=== PATIENT | female | born 1935 | race Caucasian/White ===

== ENCOUNTER 2018-01-11 13:20 | Emergency (ER) | payer OTHER, SELFPAY ==
[2018-01-11 13:21] VITALS: BP 190/95; PULSE 97; RESP 16; TEMP 36.3; O2SAT 100; BMI 23.9
--- NOTE | 2018-01-11 14:00 | RAD_ITS ---
STUDY: X-RAY - PELVIS AND RIGHT HIP REASON FOR EXAM: Female, 82 years old. Hip pain after fall. Trauma. TECHNIQUE: Radiological exam, hip, unilateral, with pelvis when performed; 2 or 3 views. COMPARISON: None. FINDINGS: There is a nonobstructive non-specific bowel gas pattern without air filled dilated small bowel loop or abnormal air-fluid level identified. Normal appearing visualized soft tissue structures. With AP view of the pelvis, bony ring of the pelvis appears intact without diastases identified. Tiny round benign-appearing calcification is seen lateral to the right proximal femur, likely soft tissue calcification. Normal bilateral iliac wings, sacroiliac joints and visualized sacrum. Normal bilateral superior and inferior pubic rami. Normal pubic symphysis. Normal bilateral ischial tuberosities. Normal visualized femoral head. Normal acetabulum. Fairly severe left greater than right hip joint space narrowing noted with subchondral sclerosis. RAD/Hip 2-3 Views with Pelvis IMPRESSION: Nonacute x-ray examination of the pelvis and hip. 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 Electronically Signed: Brandyn Lovett, at 15:37 EDT Tel , Service support ,
--- NOTE | 2018-01-11 14:00 | RAD_ITS ---
STUDY: X-RAY - UNILATERAL RIBS ( RIGHT ) WITH CHEST REASON FOR EXAM: Female, 82 years old. Painful right mid and lower ribs after fall. TECHNIQUE - RIBS: 2 view(s) of the ribs. TECHNIQUE - CHEST: PA single view. COMPARISON: No prior rib conventional radiographic images available. Correlation with chest 02/21/2015. FINDINGS - RIBS: Normal visualized ribs without a demonstrated acute displaced fracture identified. FINDINGS - CHEST: The lungs appear clear and hyperexpanded. There is no demonstrated pleural abnormality. Surgical clips project over the right lower chest with PA view but are seen near the axilla with additional oblique views of the ribs. Upper limits normal size heart. Normal mediastinum and david. Normal visualized pulmonary arteries. Normal visualized aortic arch and descending thoracic aorta. Normal visualized thoracic spine. Normal visualized ribs, clavicles and shoulders. There is no demonstrated abnormality of the visualized soft tissue structures of the upper abdomen. RAD/Ribs Uni Min 3V w/PA Chest IMPRESSION: RIBS: Nonacute x-ray examination of the ribs. Please note CT chest without IV contrast is more sensitive for acute nondisplaced fracture. If symptoms persist, recommend repeat exam in 14 days to demonstrate any radiographic occult fracture. CHEST: Nonacute x-ray examination of the chest. Electronically Signed: Brandyn Lovett, at 15:30 EDT Tel , Service support ,
--- NOTE | 2018-01-11 14:04 | ED.DCSUM_ITS ---
- ER Visit Summary Date of Service: 01/11/18 Chief Complaint: Fall History of Present Illness: The patient is a 82 F presenting after fall. Patient states that she slipped and skidded down approximately 3 steps. She did not hit her head or lose consciousness. She has no amnesia to the event. She complains of right posterior hip and right sided back pain. Denies other complaints. She is able to ambulate with pain. She is not on anticoagulants. She took Aleve prior to arrival. Physical Examination: Vitals are stable. Patient is afebrile. Alert no acute distress. HEENT exam is unremarkable. Neck is supple. Lungs are clear and equal bilaterally. Heart is regular rate and rhythm. Abdomen is soft nontender nondistended. Back: Right paraspinal muscle tenderness, no midline tenderness Extremities right posterior hip tenderness, active full range of motion. Skin is warm and dry. No focal neurologic deficit. Remainder of exam is unremarkable. Emergency Department Course and Treatment: X-ray of the right ribs shows no acute fracture. X-ray the right hip shows no acute fracture. Urinalysis shows no gross blood. She is given [place] for pain. She is given an incentive spirometer. Advised follow-up with her primary care physician. Advised return ED if worsening complaints. Disposition: Discharge home Impression: Right rib contusion, right hip pain, status post mechanical fall This note was generated with [employer] dictation software. It may contain incorrect words, spelling, and punctuation that were not noted in review of the chart prior to signing ED Disposition - Plan for ED Patient: Chief Complaint: Fall Referrals: Christin Aly MD [STAFF PHYSICIAN] -
[2018-01-11 14:45] LABS: Mucous, Urine 0 SEEN /hpf (<or=2+)
[2018-01-11 14:56] LABS: Color, Urine Yellow (Yellow); Glucose, Dipstick Normal (Normal); Ketone-Dipstick Negative (Negative); Leukocyte Esterase-Dipstick 25 /ul (Negative); Nitrite-Dipstick Negative (Negative); Occult Blood-Urine Negative /ul (Negative); Protein-Dipstick 15 mg/dl (Negative); Specific Gravity, Urine 1.015 (1.002-1.030); Urine Bilirubin Dipstick Negative (Negative); Urine Clarity Clear (Clear); Urine Urobilinogen Normal (Normal)
[2018-01-11 15:09] LABS: Red Blood Cells-Urine 0-5 SEEN /hpf (0-5); White Blood Cells 5-10 SEEN /hpf (0-5)
[2018-01-11 15:10] LABS: Bacteria 1+ /hpf (None Seen); Squamous Epithelial Cells - UA 0-5 SEEN /hpf (5-10)
--- NOTE | 2018-01-11 16:15 | ED.DEP ---
ED Disposition - Plan for ED Patient: Chief Complaint: Fall Instructions: ED Mechanical Fall Prescriptions: Hydrocodone Bitart/Apap 5-325 [[place] 5/325] 1 tablet PO Q6H PRN PRN 2 Days #8 tablet PRN Reason: Pain Referrals: Christin Aly MD [STAFF PHYSICIAN] -
[2018-01-11] MEDS: HYDROcodone Bitartrate/Apap 5/325 Tablet PO (16:16)
[2018-01-11 16:18] VITALS: BP 177/73; PULSE 71; RESP 16; O2SAT 97
--- NOTE | 2018-01-11 16:37 | ED.RN ---
Addendum entered by Juliet Moore 01/11/18 17:12: Original Note: IS teaching complete. Patient did not demonstrate use due to current c/o pain and just receiving pain medication. All questions answered.
== END 2018-01-11 16:33 | disposition home or self-care (01) ==
PROVIDERS: Emergency Provider Emergency Medicine
DX: S20.211A Contusion of right front wall of thorax, initial encounter (principal); W10.9XXA Fall (on) (from) unspecified stairs and steps, initial encounter; Y93.9 Activity, unspecified; Y92.9 Unspecified place or not applicable; M25.551 Pain in right hip; I10 Essential (primary) hypertension; Z79.899 Other long term (current) drug therapy
CPT/HCPCS: 71101; 73502; 81001; 99283

== ENCOUNTER 2018-01-12 15:04 | Observation (INO) | payer OTHER, SELFPAY ==
[2018-01-12 15:04] VITALS: BP 190/94; PULSE 74; RESP 16; TEMP 36.8; O2SAT 97; BMI 23.5
--- NOTE | 2018-01-12 15:36 | CT_ITS ---
STUDY: CT CHEST WITH CONTRAST REASON FOR EXAM: Female, 82 years old. Pain. Fall. RADIATION DOSAGE (If Supplied By Facility): CTDIvol = ( 14.54 ) mGy, DLP = ( 1316.12 ) mGycm TECHNIQUE: Transaxial imaging was performed following intravenous administration of 100 ml of Isovue 300 contrast material. Individualized dose optimization techniques were used for this CT. COMPARISON: None. FINDINGS: There are interstitial fibrotic changes of the lungs. No infiltrates. No effusions. Thickening or minimal effusion along the posterior lung bases. Normal heart and pericardium. Normal mediastinum. Normal hilar regions. Normal enhanced pulmonary arteries. Normal aorta arch and descending thoracic aorta. There are multi-level degenerative changes of the thoracic spine. No fractures are seen. There is no demonstrated abnormality of the visualized upper abdomen. CT/Chest WITH Contrast IMPRESSION: Fibrotic COPD. No definite acute abnormality. Electronically Signed: Gordon Trevino MD at 17:03 EDT , Service support ,
--- NOTE | 2018-01-12 15:36 | CT_ITS ---
STUDY: CT ABDOMEN AND PELVIS WITH CONTRAST REASON FOR EXAM: Female, 82 years old. Fall. Pain. RADIATION DOSAGE (If Supplied By Facility): CTDIvol = ( 14.54 ) mGy, DLP = ( 1316.12 ) mGycm TECHNIQUE: Transaxial images were obtained from the dome of the diaphragm to the symphysis pubis without oral contrast. 100 ml of Isovue 300 contrast was administered. Sagittal and coronal images were reconstructed. Individualized dose optimization techniques were used for this CT. COMPARISON: None. FINDINGS: The visualized lung bases are unremarkable. The visualized portions of the heart are within normal limits. Normal liver. Normal gallbladder. Distended common bile duct measuring 1 cm across. Recommend correlation with liver function tests. Normal spleen. Normal pancreas. Normal bilateral adrenal glands. Right kidney has a 5 cm mid renal cyst and is otherwise normal. Normal left kidney. Evaluation of the GI tract is limited by absence of oral contrast. Cannot exclude stomach wall thickening. No dilated loops of bowel or evidence for obstruction. Cannot exclude segmental thickening of the bean of the small or large bowel. Cannot exclude enteritis or colitis. Moderate diffuse fecal retention. Diverticulosis without definite diverticulitis. Appendix is not definitely seen. There is diffuse atherosclerotic calcification of the abdominal aorta, without a demonstrated aneurysm. Normal inferior vena cava. Normal retroperitoneum. Normal urinary bladder. There is absence of the uterus consistent with a prior hysterectomy. Normal abdominal wall. There are diffuse degenerative changes of the visualized lumbar spine. No fractures are seen. CT/Abdomen/Pelvis W IV Cont ONLY IMPRESSION: There are no definite acute abnormalities. There is a distended common bile duct. Electronically Signed: Gordon Trevino MD at 17:00 EDT , Service support ,
--- NOTE | 2018-01-12 15:38 | ED.DCSUM_ITS ---
- ER Visit Summary Date of Service: 01/12/18 Chief Complaint: Right side pain History of Present Illness: The patient is a 82 F date a mechanical fall yesterday. She landed on her right side going upstairs. She was seen in the emergency department had x-rays of the hip and the chest which were negative for fracture. Urinalysis was negative for hematuria. Patient was prescribed [place] 1 tablet every 4 hours for pain as well as incentive spirometry. Has been called then later in the day and stated that the [place] was not controlling her pain. They increased her [place] to 2 tablets every 4 hours. Patient states her pain is not controlled and she states that she can barely move due to the pain. She denies any abdominal pain. She denies any hematuria today. Physical Examination: Afebrile vital signs are stable Gen: Well-nourished well-developed Head: Normocephalic atraumatic Eyes: Perrl EOMI ENT: TMs clear no rhinorrhea moist mucous membranes Neck: Supple no lymphadenopathy no JVD nontender CVS: Regular rate rhythm no murmurs normal S1-S2 Respiratory: No distress clear to auscultation bilaterally right lower mid axillary rib pain. There is no bruising. Abdomen: Soft patient has tenderness in the right upper quadrant of the abdomen nondistended normal bowel sounds no masses Back: Nontender Extremity: Nontender no edema Skin: Normal color no rash Neuro: alert orientated ?3 CN II-XII intact normal strength sensation reflexes gait cerebellar Psych: Normal affect normal mood Test Results: Basic blood work demonstrated chronic kidney disease. CT of the chest abdomen pelvis with IV contrast demonstrated a posterior 11th rib fracture with associated chest wall hematoma. Emergency Department Course and Treatment: She received morphine and Zofran as well as IV fluids. Our plan is admission for pain control. Impression: 1. Right posterior 11th rib fracture 2. Right chest wall hematoma This note was generated with [employer] dictation software. It may contain incorrect words, spelling, and punctuation that were not noted in review of the chart prior to signing ED Disposition - Plan for ED Patient: Chief Complaint: Back Referrals: [facility] Doctor,Out of [Primary Care Provider] -
[2018-01-12] MEDS: 0.9% Normal Saline 1,000 ML 150 ML IV (15:46)
[2018-01-12] MEDS: Ondansetron 4 MG/2 ML Vial IV ×3 (15:46→19:43)
[2018-01-12] MEDS: Morphine 2 MG/ML Syringe IV (15:46)
[2018-01-12 15:58] LABS: Basophil# 0.01 X10^3/uL; Basophil% 0.2 % (0-1); Eosinophil# 0.02 X10^3/uL; Eosinophils% 0.4 % (0-5); Hematocrit 36.1 % (37-47); Hemoglobin 11.6 g/dl (12.0-15.0); Lymphocyte % 17.6 % (19-41); Mean Corp Hgb Conc 32.1 g/gl (32-36); Mean Corpuscular Hgb 32.8 pg (27.0-32.0); Mean Platelet Vol. 9.7 fl (6.2-12.0); Monocyte# 0.19 X10^3/uL; Monocyte% 3.7 % (0-10); Neutrophil # 3.99 X10^3/uL (2.7-7.7); Neutrophil % 77.9 % (47-70); Platelet Count 191 K/mm3 (150-450); RBC Distribution Width CV 12.4 % (11.6-14.6); RBC Distribution Width SD 45.1 fl (35.1-43.9); Red Blood Count 3.54 M/mm3 (4.2-5.4); White Blood Count 5.1 K/mm3 (4.4-11.0)
[2018-01-12 15:59] LABS: POSITIVE COUNT NO; POSITIVE DIFFERENTIAL NO; POSITIVE MORPHOLOGY NO
[2018-01-12 16:17] LABS: ALB/GLOB Ratio 1.2 RATIO (0.9-2.4); AST(SGOT) 17 U/L (15-37); Alanine Aminotransfer ALT/SGPT 27 U/L (13-56); Albumin, Serum 3.8 g/dL (3.2-5.0); Alkaline Phosphatase 59 U/L (45-117); Anion Gap 4 (5-15); BUN 39 mg/dL (7-18); BUN/Creat Ratio 25.7 RATIO (10-20); Calcium,Total 8.8 mg/dL (8.5-10.1); Chloride 106 mmol/L (98-107); Creatinine, Serum 1.52 mg/dL (0.55-1.02); EST Glomerular Filtration Rate 35 mL/min (>60); Est Glom Filt Rate - Afr Amer 42 mL/min (>60); Estimated Creatinine Clearance 28.23 ml/min; Globulin 3.1 g/dL (2.2-4.2); Glucose 149 mg/dL (74-106); Potassium 4.8 mmol/L (3.5-5.1); Protein, Total 6.9 g/dL (6.4-8.2); Sodium Level 141 mmol/L (136-145)
--- NOTE | 2018-01-12 16:54 | PCM.HP.STD ---
Problem List (1) HTN (hypertension) Status: Chronic Qualifiers: Hypertension type: essential hypertension Qualified Code(s): I10 - Essential (primary) hypertension (2) Hypothyroidism Status: Chronic Qualifiers: Hypothyroidism type: unspecified Qualified Code(s): E03.9 - Hypothyroidism, unspecified (3) Neuropathy Status: Chronic (4) History of breast cancer Status: Chronic Comment: R Breast CA s/p lumpectomy and radiation. (5) Intractable back pain Status: Acute (6) Intractable rib pain Status: Acute History of Present Illness Date of Admission: 01/12/18 Chief Complaint: Fall, intractable R rib and R lateral back pain The patient is a 82 y/o F w/ PMHx: HTN, Hypothyroidism, Neuropathy, History of Breast CA s/p R lumpectomy and radiation (Dr. Ledezma) who presents to the [facility] ED on 01/12/18 with history of fall the day prior while going down the steps, noted to have fall on the 3rd step to the floor onto a wooden surface onto her R side and R lateral back with ongoing, worsening pain. She notes the pain is so severe she is unable to function well and is having notable nausea despite ED pain regimen administration given on day of fall and increase of the regimen. In the ED upon current presentation work-up included T 98.2, HR 74, BP 190/94, RR 16, 97% on RA, CBC w/ WBC 5.1, Hgb 11.6, Plts 191 without marked shift, MCV 102, CMP 39/1.52 (last Cr 02/21/15 1.2), glucose 149. Past Medical History Past Medical History (Chronic Problems): Chronic Problems HTN (hypertension) (Chronic) Hypothyroidism (Chronic) Neuropathy (Chronic) History of breast cancer (Chronic) R Breast CA s/p lumpectomy and radiation. Allergies iron Allergy (Verified 01/12/18 15:06) Unknown pentazocine [From [place]] Allergy (Verified 01/12/18 15:06) Other scopolamine Allergy (Verified 01/12/18 15:06) Other Home Medications: Ambulatory Orders Medication Instructions Recorded Gabapentin [Neurontin] 100 mg PO BID 01/11/18 Hydrochlorothiazide [Hctz] 25 mg PO DAILY 01/11/18 Hydrocodone Bitart/Apap 5-325 1 tablet PO Q6H PRN PRN 2 Days #8 03/27/18 [[place] 5/325] tablet Levothyroxine [Synthroid] 88 mcg PO DAILY 01/11/18 Valsartan 80 mg PO DAILY 01/11/18 Surgical History: - - Right breast lumpectomy, hysterectomy, appendectomy. 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 Tobacco Use: Non-smoker Alcohol: Occasional - 1-1.5 glass wine/night with dinner. Drugs: None - *Family History Maternal History Items: Heart Disease, Hypertension Paternal History Items: Heart Disease, Hypertension Review of Systems Constitutional: Reports: Anorexia, Malaise, Weakness, Fatigue. Denies: Chills, Fever, Weight Change HEENT: Denies: Head Aches, Sinus Congestion, Sinus Drainage Cardiovascular: Reports: Chest Pain. Denies: Palpitations Respiratory: Denies: Cough, Shortness of breath at rest, Sputum production Gastrointestinal: Reports: Nausea. Denies: Abdominal Pain, Vomiting Genitourinary: Denies: Dysuria Musculoskeletal: Reports: Back Pain, Joint Pain. Denies: Joint Tenderness Skin: Denies: Rash, Wounds Neurological: Denies: Numbness, Tingling, Focal weakness Psychiatric: Denies: Anxiety, Depression, Homicidal Ideations, Suicidal Ideations Hematologic/ Lymphatic: Denies: Easy Bruising, Easy Bleeding VTE Information - Inpt Only VTE Present on Admission: No VTE Mechan Device Prophylaxis: SCD's VTE Pharm Prophylaxis ordered?: No Reason prophylaxis not ordered:: Medical Contraindication Patient Problems: Active and Suspected Problems Intractable back pain (Acute) Intractable rib pain (Acute) Subjective: Seated upright in the ED bed, severely uncomfortable appearing. Objective: Physical Examination: General: awake, alert, oriented x 3 and cooperative, seated upright in the ED bed in no apparent distress. Skin: normal color, turgor, no icterus, cyanosis, no obvious emeses to the right lateral chest or right back region. HEENT: AT/NC, EOMI, PERRLA, dry MM, no carotid bruits or JVD noted. Lungs: Diminished BS bases, decreased effort secondary to pain likely, no rales, ronchi or wheezing. Heart: Regular rate and rhythm; no gallop, rub audible. Abdomen: soft, unable to elicit marked TTP in the abd, ED noted discomfort RUQ, ND hypoactive BS, no HSM. Extremities: no cyanosis, clubbing, or edema, posterior R side w/ focal TTP lateral lower R ribs and also noted edematous lateral back region, no bruising currently. Neurological: patient awake, alert, oriented x 3; cognitive function intact; pupils equally reactive to light and accomodation; cranial nerves II-XII grossly normal, moving all 4 extremities but limited secondary to acute pain, , no focal deficits, strength preserved. Psychiatric: affect appears fatigued, no acute evidence of depressive or anxiety feelings. - Physical Exam Vital Signs Temp Pulse Resp BP Pulse Ox 98.2 F 74 16 190/94 H 97 01/12/18 15:04 01/12/18 15:04 01/12/18 15:04 01/12/18 15:04 01/12/18 15:04 Oxygen Delivery Method Room Air Weight: 150 lb Body Mass Index (BMI) 23.5 Laboratory Tests Past 24 Hrs 01/12/18 01/12/18 15:45 15:45 WBC 5.1 RBC 3.54 L Hgb 11.6 L Hct 36.1 L MCV 102.0 H MCH 32.8 H MCHC 32.1 RDW 12.4 RDW Differential 45.1 H Plt Count 191 MPV 9.7 Immature Gran % (Auto) 0.200 Neut % (Auto) 77.9 H Lymph % (Auto) 17.6 L [place] % (Auto) 3.7 Eos % (Auto) 0.4 Baso % (Auto) 0.2 Absolute Neuts (auto) 4.0 Absolute Lymphs (auto) 0.90 Total Counted Not Reportable Sodium 141 Potassium 4.8 Chloride 106 Carbon Dioxide 31.0 Anion Gap 4 L BUN 39 H Creatinine 1.52 H Estim Creat Clear Calc 28.23 Est GFR (MDRD) Af Amer 42 L Est GFR (MDRD) Non-Af 35 L BUN/Creatinine Ratio 25.7 H Glucose 149 H Calcium 8.8 Total Bilirubin 0.40 AST 17 ALT 27 Alkaline Phosphatase 59 Total Protein 6.9 Albumin 3.8 Globulin 3.1 Albumin/Globulin Ratio 1.2 Assessment/Plan Active and Suspected Problems Intractable back pain (Acute) Intractable rib pain (Acute) The patient is a 82 y/o F w/ PMHx: HTN, Hypothyroidism, Neuropathy, History of Breast CA s/p R lumpectomy and radiation (Dr. Ledezma) who presents to the [facility] ED on 01/12/18 with history of fall the day prior while going down the steps, noted to have fall on the 3rd step to the floor onto a wooden surface onto her R side and R lateral back with ongoing, worsening pain. (1) Mechanical Fall, Intractable R Sided Rib pain, R Back Pain, Suspected R Lateral 10-11 Rib Fx and Posterior lateral R sided back Hematoma: Given intractable pain, despite attempted oral treatment, pending CT A/P and chest in the ED, as long as no concerning bleeding that would necessitate ED transfer to Tertiary Facility, will admit to [facility], maintain on IVFs as noted, treat w/ PRN oral and IV pain regimen, fall precautions, PT and OT assessment, encourage aggressive IS, increased neurontin from home regimen, q 2 position changes. (2) Acute kidney injury: Secondary to suspected poor oral intake since fall secondary to pain w/ concurrent nausea, although cannot rule out prior CKD, last noted Cr 1.2 2014. Admission BUN/Cr 39/1.52, prior baseline creatinine noted to be 1.2 as noted but only single point and in 2015. Will hydrate, hold nephrotoxic medications and repeat chemistry in AM. If no improvement would plan FeNa assessment and renal US. (3) Hypertension: Holding HCTZ, ARB secondary to suspected mild BRIGHT, add back once improved renal fx, PRN hydralazine. (4) Hypothyroidism: Continue home synthroid regimen. (5) Hyperglycemia: Suspect likely stress, admission glucose 149, HgbA1c pending. (6) Chronic Neuropathy: Continue neurontin, low dose at home, will increase given acute pain presentation with renal dosing. (7) GERD: Famotidine. (8) Macrocytic Anemia: Admission Hgb 11.6, baseline last lab 2014, MCV elevated, will obtain Fe panel, ferritin, vitamin B12, folic acid. (9) DVT Prophylaxis: SCDs, defer chemoprophylaxis given hematoma and rib fracture s/p fall. Code Visit OBSV E&M: 46671 Initial observation care L3
--- NOTE | 2018-01-12 16:57 | HP.PCM_ITS ---
Problem List (1) HTN (hypertension) Status: Chronic Qualifiers: Hypertension type: essential hypertension Qualified Code(s): I10 - Essential (primary) hypertension (2) Hypothyroidism Status: Chronic Qualifiers: Hypothyroidism type: unspecified Qualified Code(s): E03.9 - Hypothyroidism , unspecified (3) Neuropathy Status: Chronic (4) History of breast cancer Status: Chronic Comment: R Breast CA s/p lumpectomy and radiation. (5) Intractable back pain Status: Acute (6) Intractable rib pain Status: Acute History of Present Illness Date of Admission: 01/12/18 Chief Complaint: Fall, intractable R rib and R lateral back pain The patient is a 82 y/o F w/ PMHx: HTN, Hypothyroidism, Neuropathy, History of Breast CA s/p R lumpectomy and radiation (Dr. Ledezma) who presents to the [facility] ED on 01/12/18 with history of fall the day prior while going down the steps, noted to have fall on the 3rd step to the floor onto a wooden surface onto her R side and R lateral back with ongoing, worsening pain. She notes the pain is so severe she is unable to function well and is having notable nausea despite ED pain regimen administration given on day of fall and increase of the regimen. In the ED upon current presentation work-up included T 98.2, HR 74, BP 190/94, RR 16, 97% on RA, CBC w/ WBC 5.1, Hgb 11.6, Plts 191 without marked shift, MCV 102, CMP 39/1.52 (last Cr 02/21/15 1.2), glucose 149. Past Medical History Past Medical History (Chronic Problems): Chronic Problems HTN (hypertension) (Chronic) Hypothyroidism (Chronic) Neuropathy (Chronic) History of breast cancer (Chronic) R Breast CA s/p lumpectomy and radiation. Allergies iron Allergy (Verified 01/12/18 15:06) Unknown pentazocine [From Talwin] Allergy (Verified 01/12/18 15:06) Other scopolamine Allergy (Verified 01/12/18 15:06) Other Home Medications: Ambulatory Orders Medication Instructions Recorded Gabapentin [Neurontin] 100 mg PO BID 01/11/18 Hydrochlorothiazide [Hctz] 25 mg PO DAILY 01/11/18 Hydrocodone Bitart/Apap 5-325 1 tablet PO Q6H PRN PRN 2 Days #8 03/27/18 [[place] 5/325] tablet Levothyroxine [Synthroid] 88 mcg PO DAILY 01/11/18 Valsartan 80 mg PO DAILY 01/11/18 Surgical History: - - Right breast lumpectomy, hysterectomy, appendectomy. Psychiatric History: No pertinent psych hx CUSTOMS PORT DIRECTOR History: No pertinent CUSTOMS PORT DIRECTOR history Lives: Spouse/ Significant Other Smoking Status: Former smoker - Quit ~ 50 years prior, 1/2 ppd. Tobacco Use: Non-smoker Alcohol: Occasional - 1-1.5 glass wine/night with dinner. Drugs: None - *Family History Maternal History Items: Heart Disease, Hypertension Paternal History Items: Heart Disease, Hypertension Review of Systems Constitutional: Reports: Anorexia, Malaise, Weakness, Fatigue. Denies: Chills, Fever, Weight Change HEENT: Denies: Head Aches, Sinus Congestion, Sinus Drainage Cardiovascular: Reports: Chest Pain. Denies: Palpitations Respiratory: Denies: Cough, Shortness of breath at rest, Sputum production Gastrointestinal: Reports: Nausea. Denies: Abdominal Pain, Vomiting Genitourinary: Denies: Dysuria Musculoskeletal: Reports: Back Pain, Joint Pain. Denies: Joint Tenderness Skin: Denies: Rash, Wounds Neurological: Denies: Numbness, Tingling, Focal weakness Psychiatric: Denies: Anxiety, Depression, Homicidal Ideations, Suicidal Ideations Hematologic/ Lymphatic: Denies: Easy Bruising, Easy Bleeding VTE Information - Inpt Only VTE Present on Admission: No VTE Mechan Device Prophylaxis: SCD's VTE Pharm Prophylaxis ordered?: No Reason prophylaxis not ordered:: Medical Contraindication Patient Problems: Active and Suspected Problems Intractable back pain (Acute) Intractable rib pain (Acute) Subjective: Seated upright in the ED bed, severely uncomfortable appearing. Objective: Physical Examination: General: awake, alert, oriented x 3 and cooperative, seated upright in the ED bed in no apparent distress. Skin: normal color, turgor, no icterus, cyanosis, no obvious emeses to the right lateral chest or right back region. HEENT: AT/NC, EOMI, PERRLA, dry MM, no carotid bruits or JVD noted. Lungs: Diminished BS bases, decreased effort secondary to pain likely, no rales , ronchi or wheezing. Heart: Regular rate and rhythm; no gallop, rub audible. Abdomen: soft, unable to elicit marked TTP in the abd, ED noted discomfort RUQ, ND hypoactive BS, no HSM. Extremities: no cyanosis, clubbing, or edema, posterior R side w/ focal TTP lateral lower R ribs and also noted edematous lateral back region, no bruising currently. Neurological: patient awake, alert, oriented x 3; cognitive function intact; pupils equally reactive to light and accomodation; cranial nerves II-XII grossly normal, moving all 4 extremities but limited secondary to acute pain, , no focal deficits, strength preserved. Psychiatric: affect appears fatigued, no acute evidence of depressive or anxiety feelings. - Physical Exam Vital Signs Temp Pulse Resp BP Pulse Ox 98.2 F 74 16 190/94 H 97 01/12/18 15:04 01/12/18 15:04 01/12/18 15:04 01/12/18 15:04 01/12/18 15:04 Oxygen Delivery Method Room Air Weight: 150 lb Body Mass Index (BMI) 23.5 Laboratory Tests Past 24 Hrs 01/12/18 01/12/18 15:45 15:45 WBC 5.1 RBC 3.54 L Hgb 11.6 L Hct 36.1 L MCV 102.0 H MCH 32.8 H MCHC 32.1 RDW 12.4 RDW Differential 45.1 H Plt Count 191 MPV 9.7 Immature Gran % (Auto) 0.200 Neut % (Auto) 77.9 H Lymph % (Auto) 17.6 L [place] % (Auto) 3.7 Eos % (Auto) 0.4 Baso % (Auto) 0.2 Absolute Neuts (auto) 4.0 Absolute Lymphs (auto) 0.90 Total Counted Not Reportable Sodium 141 Potassium 4.8 Chloride 106 Carbon Dioxide 31.0 Anion Gap 4 L BUN 39 H Creatinine 1.52 H Estim Creat Clear Calc 28.23 Est GFR (MDRD) Af Amer 42 L Est GFR (MDRD) Non-Af 35 L BUN/Creatinine Ratio 25.7 H Glucose 149 H Calcium 8.8 Total Bilirubin 0.40 AST 17 ALT 27 Alkaline Phosphatase 59 Total Protein 6.9 Albumin 3.8 Globulin 3.1 Albumin/Globulin Ratio 1.2 Assessment/Plan Active and Suspected Problems Intractable back pain (Acute) Intractable rib pain (Acute) The patient is a 82 y/o F w/ PMHx: HTN, Hypothyroidism, Neuropathy, History of Breast CA s/p R lumpectomy and radiation (Dr. Ledezma) who presents to the [facility] ED on 01/12/18 with history of fall the day prior while going down the steps, noted to have fall on the 3rd step to the floor onto a wooden surface onto her R side and R lateral back with ongoing, worsening pain. (1) Mechanical Fall, Intractable R Sided Rib pain, R Back Pain, Suspected R Lateral 10-11 Rib Fx and Posterior lateral R sided back Hematoma: Given intractable pain, despite attempted oral treatment, pending CT A/P and chest in the ED, as long as no concerning bleeding that would necessitate ED transfer to Tertiary Facility, will admit to [facility], maintain on IVFs as noted, treat w/ PRN oral and IV pain regimen, fall precautions, PT and OT assessment, encourage aggressive IS, increased neurontin from home regimen, q 2 position changes. (2) Acute kidney injury: Secondary to suspected poor oral intake since fall secondary to pain w/ concurrent nausea, although cannot rule out prior CKD, last noted Cr 1.2 2014. Admission BUN/Cr 39/1.52, prior baseline creatinine noted to be 1.2 as noted but only single point and in 2015. Will hydrate, hold nephrotoxic medications and repeat chemistry in AM. If no improvement would plan FeNa assessment and renal US. (3) Hypertension: Holding HCTZ, ARB secondary to suspected mild BRIGHT, add back once improved renal fx, PRN hydralazine. (4) Hypothyroidism: Continue home synthroid regimen. (5) Hyperglycemia: Suspect likely stress, admission glucose 149, HgbA1c pending. (6) Chronic Neuropathy: Continue neurontin, low dose at home, will increase given acute pain presentation with renal dosing. (7) GERD: Famotidine. (8) Macrocytic Anemia: Admission Hgb 11.6, baseline last lab 2014, MCV elevated , will obtain Fe panel, ferritin, vitamin B12, folic acid. (9) DVT Prophylaxis: SCDs, defer chemoprophylaxis given hematoma and rib fracture s/p fall. Code Visit OBSV E&M: 88857 Initial observation care L3
[2018-01-12 17:07] VITALS: BP 179/78; PULSE 73; RESP 16; O2SAT 92
[2018-01-12] MEDS: Ketorolac 30 MG/ML Syringe 15 MG IV (17:32)
[2018-01-12 17:51] VITALS: BP 170/75; PULSE 73; RESP 16; O2SAT 92
[2018-01-12 18:26] VITALS: BMI 23.5
[2018-01-12 18:35] VITALS: BP 166/66; PULSE 68; RESP 14; TEMP 37; O2SAT 92
[2018-01-12 18:36] VITALS: BMI 25.9
[2018-01-12 19:12] LABS: Hemoglobin A1c 5.8 % (4.2-6.3)
[2018-01-12 19:13] LABS: Vitamin B12 560 pg/mL (211-911)
[2018-01-12 19:18] LABS: Ferritin 41 ng/mL (8-252); Iron 43 ug/dL (50-170); Iron Binding Capacity,Total 322 ug/dL (250-450); Magnesium 2.1 mg/dL (1.6-2.6); PERCENT IRON SATURATION 13.4 % (15.0-55.0)
[2018-01-12] MEDS: HYDROmorphone 0.5 MG/0.5 ML SYRINGE IV (19:43)
[2018-01-12 20:28] VITALS: BP 173/76; PULSE 69; RESP 16; TEMP 37.1; O2SAT 91
[2018-01-12] MEDS: proMETHazine 25 MG/ML Syringe 12.5 MG IV (21:47)
[2018-01-12 22:37] VITALS: BP 155/61; PULSE 65; RESP 16; TEMP 36.6; O2SAT 95
[2018-01-13] MEDS: fentaNYL 100 MCG/2 ML Ampul 25 MCG IV ×3 (01:42→10:38)
[2018-01-13] MEDS: 0.9% Normal Saline 1,000 ML 125 ML IV ×2 (01:42→12:47)
[2018-01-13] MEDS: oxyCODONE 5 MG Tablet PO ×4 (02:28→17:33)
[2018-01-13 02:59] VITALS: BP 148/68; PULSE 56; RESP 17; TEMP 36.6; O2SAT 95
[2018-01-13] MEDS: Acetaminophen 500 MG Tablet 1000 MG PO ×3 (05:34→21:46)
[2018-01-13] MEDS: Levothyroxine 88 MCG Tablet PO (05:36)
[2018-01-13 05:59] LABS: Absolute Lymphocyte Count 1.34 X10^3/ul (0.83-4.51); Absolute Neutrophil Count 1.8 X10^3/uL (2.0-7.7); Basophil# 0.01 X10^3/uL; Basophil% 0.3 % (0-1); Eosinophil# 0.03 X10^3/uL; Eosinophils% 0.8 % (0-5); Hematocrit 30.2 % (37-47); Hemoglobin 9.5 g/dl (12.0-15.0); Lymphocyte # 1.34 X10^3/ul (4.0); Mean Corp Hgb Conc 31.5 g/gl (32-36); Mean Corpuscular Hgb 32.8 pg (27.0-32.0); Mean Corpuscular Volume 104.1 fL (81-99); Neutrophil # 1.84 X10^3/uL (2.7-7.7); Neutrophil % 50.9 % (47-70); Platelet Count 166 K/mm3 (150-450); RBC Distribution Width CV 12.3 % (11.6-14.6); RBC Distribution Width SD 45.9 fl (35.1-43.9); White Blood Count 3.6 K/mm3 (4.4-11.0)
[2018-01-13 06:08] LABS: POSITIVE COUNT NO; POSITIVE DIFFERENTIAL NO; POSITIVE MORPHOLOGY NO
[2018-01-13 06:15] LABS: Anion Gap 4 (5-15); BUN 30 mg/dL (7-18); BUN/Creat Ratio 29.7 RATIO (10-20); Calcium,Total 6.8 mg/dL (8.5-10.1); Chloride 116 mmol/L (98-107); Creatinine, Serum 1.01 mg/dL (0.55-1.02); EST Glomerular Filtration Rate 56 mL/min (>60); Est Glom Filt Rate - Afr Amer 68 mL/min (>60); Estimated Creatinine Clearance 42.48 ml/min; Glucose 80 mg/dL (74-106); Potassium 4.2 mmol/L (3.5-5.1); Sodium Level 145 mmol/L (136-145)
[2018-01-13 08:39] VITALS: BP 137/56; PULSE 65; RESP 16; TEMP 36.6; O2SAT 99
[2018-01-13] MEDS: proMETHazine 25 MG/ML Syringe 6.25 MG IV (08:46)
[2018-01-13] MEDS: Gabapentin 100 MG Capsule 200 MG PO ×3 (08:46→17:33)
--- NOTE | 2018-01-13 09:17 | CASEMGMT ---
Social Work Assessment Referral Date: 01/13/2018 Date of Assessment: 01/13/2018 Reason for Consult: Initial assessment Informant: Self-referral SW met with pt to complete initial assessment. SW introduced self and role at [facility]. Pt states that she lives with her in a two story home and that her is supportive. Pt states that she has 14 steps to get into her home. Pt states that she is retired and before coming to [facility] she was completing ADLs independently. Pt denied feeling weak when she fell and states that she fell due to having a misstep. Pt states that this recent fall was her first time falling at home. Pt denied DME. SW asked pt her discharge plans. Pt states that she would like to go home. SW educated pt on rehabilitation and Home Health with therapy. Pt was receptive to this but states that her first choice is to go home. SW informed client that it is her decision for what she decides at discharge. SW informed pt that if she has any questions or concerns to ask staff for the addiction social worker. Pt states understanding. Substance Abuse Hx: Pt denied Mental Health Hx: Pt denied Intervention: Initial assessment to determine needs. Pt/Ot will evaluate pt and assist in discharge planning. SW will continue to follow. Plan: Home at discharge. Manjula Ramirez CASE HARDENER, INTERNAL GRINDER TENDER.
[2018-01-13] MEDS: Famotidine 20 MG Tablet PO (10:17)
[2018-01-13] MEDS: Senna/Docusate Sodium 1 Tablet 2 TABLET PO (10:17)
[2018-01-13 11:15] VITALS: O2SAT 97
[2018-01-13 15:58] VITALS: BP 163/74; PULSE 65; RESP 16; TEMP 36.5; O2SAT 96
--- NOTE | 2018-01-13 16:29 | PCM.PROGNOTE ---
Patient Problems: Active and Suspected Problems Intractable back pain (Acute) Intractable rib pain (Acute) Subjective: She is c/o pain in the right thorax and right low back with any movement. - Physical Exam General: Alert, Oriented x3, No apparent distress, Well developed, Well nourished HEENT: Atraumatic, PERRLA, Normocephalic Oral: Moist Mucosa, No Gingival or Mucosal Lesions/ Ulcerations Neck: Supple, No JVD, Negative Carotid Bruits, Negative Hepatojugular Reflux, No Nodes Lungs: Clear to auscultation, Normal air movement, No rhonchi, No wheeze, No rales Cardiovascular: Regular rate, Regular Rhythm, Normal S1, Normal S2, No murmurs, No Ectopic Activity Abdomen: Bowel Sounds Present, Soft, Non Tender, Non-Distended, No Hepato-splenomegaly Extremities: No clubbing, No cyanosis, No edema Skin: No rashes, No breakdown Musculoskeletal: Tenderness - right posterolateral chest wall. Lymphatic: No Cervical, Supraclavicular, or Inguinal Adenopathy Neurological: Cranial nerves II-XII grossly intact, Neuro grossly intact Psych/Mental Status: Normal Affect Vital Signs Temp Pulse Resp BP Pulse Ox 97.7 F L 65 16 163/74 H 96 01/13/18 15:58 01/13/18 15:58 01/13/18 15:58 01/13/18 15:58 01/13/18 15:58 Oxygen Flow Rate (L/min) 2.5 Oxygen Delivery Method Nasal Cannula Weight: 165 lb 3.2 oz Body Mass Index (BMI) 25.9 Intake and Output for Last 24 Hours 01/11/18 01/12/18 01/13/18 23:59 23:59 23:59 Intake Total 698 / 698 2652 / 2652 Output Total / Balance 698 / 698 2627 / 2627 Laboratory Tests Past 24 Hrs 01/13/18 01/13/18 05:30 05:30 WBC 3.6 L RBC 2.90 L Hgb 9.5 L Hct 30.2 L MCV 104.1 H MCH 32.8 H MCHC 31.5 L RDW 12.3 RDW Differential 45.9 H Plt Count 166 MPV 10.0 Immature Gran % (Auto) 0.000 Neut % (Auto) 50.9 Lymph % (Auto) 37.0 [place] % (Auto) 11.0 H Eos % (Auto) 0.8 Baso % (Auto) 0.3 Absolute Neuts (auto) 1.8 L Absolute Lymphs (auto) 1.34 Total Counted Not Reportable Sodium 145 Potassium 4.2 Chloride 116 H Carbon Dioxide 25.0 Anion Gap 4 L BUN 30 H Creatinine 1.01 Estim Creat Clear Calc 42.48 Est GFR (MDRD) Af Amer 68 Est GFR (MDRD) Non-Af 56 L BUN/Creatinine Ratio 29.7 H Glucose 80 Calcium 6.8 L Diagnostic Data Abdomen/Pelvis CT 01/12/18 15:36 IMPRESSION: There are no definite acute abnormalities. There is a distended common bile duct. Electronically Signed: Gordon Trevino MD at 17:00 EDT , Service support , Chest CT 01/12/18 15:36 IMPRESSION: Fibrotic COPD. No definite acute abnormality. Electronically Signed: Gordon Trevino MD at 17:03 EDT , Service support , ADDENDUM: 01/12/18 1730 Medical Necessity - Tobacco Use Smoking Status: Former smoker Tobacco Use: Non-smoker Assessment/Plan Active and Suspected Problems Intractable back pain (Acute) Intractable rib pain (Acute) Patient is an 32 years old female who presents to ED after fall, complaining of severe pain. She fell at home the day prior while going down the steps, noted to have fall on the 3rd step to the floor onto a wooden surface onto her R side and R lateral back. She is having worsening of pain. She had CT of chest and abd/pelvis, which were essentially unremarkable, but had questionable non-displaced fracture of right 7th rib. She is complaining of right posterolateral chest wall and right lower back pain with any movement. #1 intractable chest wall and back pain. Imaging studies with CT chest, abd, and pelvis unremarkable except for possible 7th rib fracture on right side. She is on oxycodone 5 to 10 mg po q4hr prn and fentanyl IV 25 mcg q1h prn. She does well if she is not moving, but any movement trigger sharp pain. Encourage her to participate in physical therapy. Continue current analgesics. #2 Essential hypertension. Blood pressure adequate. HCTZ and ARB on hold. #3 BRIGHT. Creatinine 1.52 on admission, normalized after IVF. #4 Neuropathy. Continue Neurontin. #5 Macrocytic Anemia: Admission Hgb 11.6, baseline last lab 2014, MCV elevated, will obtain Fe panel, ferritin, vitamin B12, folic acid. VTE prophylaxis: SCD. GI prophylaxis: H2 cecilia po. She is full code. Disposition: Home. Code Visit OBSV E&M: 10375 Subsequent observation care L3
--- NOTE | 2018-01-13 16:50 | PN_ITS ---
Patient Problems: Active and Suspected Problems Intractable back pain (Acute) Intractable rib pain (Acute) Subjective: She is c/o pain in the right thorax and right low back with any movement. - Physical Exam General: Alert, Oriented x3, No apparent distress, Well developed, Well nourished HEENT: Atraumatic, PERRLA, Normocephalic Oral: Moist Mucosa, No Gingival or Mucosal Lesions/ Ulcerations Neck: Supple, No JVD, Negative Carotid Bruits, Negative Hepatojugular Reflux, No Nodes Lungs: Clear to auscultation, Normal air movement, No rhonchi, No wheeze, No rales Cardiovascular: Regular rate, Regular Rhythm, Normal S1, Normal S2, No murmurs, No Ectopic Activity Abdomen: Bowel Sounds Present, Soft, Non Tender, Non-Distended, No Hepato- splenomegaly Extremities: No clubbing, No cyanosis, No edema Skin: No rashes, No breakdown Musculoskeletal: Tenderness - right posterolateral chest wall. Lymphatic: No Cervical, Supraclavicular, or Inguinal Adenopathy Neurological: Cranial nerves II-XII grossly intact, Neuro grossly intact Psych/Mental Status: Normal Affect Vital Signs Temp Pulse Resp BP Pulse Ox 97.7 F L 65 16 163/74 H 96 01/13/18 15:58 01/13/18 15:58 01/13/18 15:58 01/13/18 15:58 01/13/18 15:58 Oxygen Flow Rate (L/min) 2.5 Oxygen Delivery Method Nasal Cannula Weight: 165 lb 3.2 oz Body Mass Index (BMI) 25.9 Intake and Output for Last 24 Hours 01/11/18 01/12/18 01/13/18 23:59 23:59 23:59 Intake Total 698 / 698 2652 / 2652 Output Total / Balance 698 / 698 2627 / 2627 Laboratory Tests Past 24 Hrs 01/13/18 01/13/18 05:30 05:30 WBC 3.6 L RBC 2.90 L Hgb 9.5 L Hct 30.2 L MCV 104.1 H MCH 32.8 H MCHC 31.5 L RDW 12.3 RDW Differential 45.9 H Plt Count 166 MPV 10.0 Immature Gran % (Auto) 0.000 Neut % (Auto) 50.9 Lymph % (Auto) 37.0 [place] % (Auto) 11.0 H Eos % (Auto) 0.8 Baso % (Auto) 0.3 Absolute Neuts (auto) 1.8 L Absolute Lymphs (auto) 1.34 Total Counted Not Reportable Sodium 145 Potassium 4.2 Chloride 116 H Carbon Dioxide 25.0 Anion Gap 4 L BUN 30 H Creatinine 1.01 Estim Creat Clear Calc 42.48 Est GFR (MDRD) Af Amer 68 Est GFR (MDRD) Non-Af 56 L BUN/Creatinine Ratio 29.7 H Glucose 80 Calcium 6.8 L Diagnostic Data Abdomen/Pelvis CT 01/12/18 15:36 IMPRESSION: There are no definite acute abnormalities. There is a distended common bile duct. Electronically Signed: Gordon Trevino MD at 17:00 EDT , Service support , Chest CT 01/12/18 15:36 IMPRESSION: Fibrotic COPD. No definite acute abnormality. Electronically Signed: Gordon Trevino MD at 17:03 EDT , Service support , ADDENDUM: 01/12/18 1730 Medical Necessity - Tobacco Use Smoking Status: Former smoker Tobacco Use: Non-smoker Assessment/Plan Active and Suspected Problems Intractable back pain (Acute) Intractable rib pain (Acute) Patient is an 32 years old female who presents to ED after fall, complaining of severe pain. She fell at home the day prior while going down the steps, noted to have fall on the 3rd step to the floor onto a wooden surface onto her R side and R lateral back. She is having worsening of pain. She had CT of chest and abd/pelvis, which were essentially unremarkable, but had questionable non-displaced fracture of right 7th rib. She is complaining of right posterolateral chest wall and right lower back pain with any movement. #1 intractable chest wall and back pain. Imaging studies with CT chest, abd, and pelvis unremarkable except for possible 7th rib fracture on right side. She is on oxycodone 5 to 10 mg po q4hr prn and fentanyl IV 25 mcg q1h prn. She does well if she is not moving, but any movement trigger sharp pain. Encourage her to participate in physical therapy. Continue current analgesics. #2 Essential hypertension. Blood pressure adequate. HCTZ and ARB on hold. #3 BRIGHT. Creatinine 1.52 on admission, normalized after IVF. #4 Neuropathy. Continue Neurontin. #5 Macrocytic Anemia: Admission Hgb 11.6, baseline last lab 2014, MCV elevated, will obtain Fe panel, ferritin, vitamin B12, folic acid. VTE prophylaxis: SCD. GI prophylaxis: H2 cecilia po. She is full code. Disposition: Home. Code Visit OBSV E&M: 86380 Subsequent observation care L3
[2018-01-13 17:31] VITALS: BP 134/61; PULSE 63
[2018-01-13 21:00] VITALS: BP 110/53; PULSE 55; RESP 18; TEMP 36.6; O2SAT 97
[2018-01-14 02:45] VITALS: O2SAT 95
[2018-01-14] MEDS: oxyCODONE 5 MG Tablet PO ×3 (02:52→16:48)
[2018-01-14 03:00] VITALS: BP 131/68; PULSE 62; RESP 18; TEMP 36.9; O2SAT 95
[2018-01-14] MEDS: Levothyroxine 88 MCG Tablet PO (05:32)
[2018-01-14] MEDS: Acetaminophen 500 MG Tablet 1000 MG PO ×2 (07:01→15:06)
[2018-01-14 07:46] LABS: Hematocrit 35.6 % (37-47); Mean Corp Hgb Conc 30.9 g/gl (32-36); Mean Corpuscular Hgb 32.3 pg (27.0-32.0); Mean Corpuscular Volume 104.4 fL (81-99); Mean Platelet Vol. 9.9 fl (6.2-12.0); Platelet Count 181 K/mm3 (150-450); RBC Distribution Width CV 12.9 % (11.6-14.6); Red Blood Count 3.41 M/mm3 (4.2-5.4); White Blood Count 6.6 K/mm3 (4.4-11.0)
[2018-01-14 07:47] LABS: Scan Indicated on CBC? Y/N NO
[2018-01-14 08:07] VITALS: RESP 16; O2SAT 97
[2018-01-14] MEDS: Famotidine 20 MG Tablet PO (08:10)
[2018-01-14] MEDS: Senna/Docusate Sodium 1 Tablet 2 TABLET PO (08:10)
[2018-01-14 08:11] LABS: Anion Gap 5 (5-15); BUN 32 mg/dL (7-18); BUN/Creat Ratio 24.6 RATIO (10-20); Calcium,Total 8.2 mg/dL (8.5-10.1); Chloride 110 mmol/L (98-107); EST Glomerular Filtration Rate 42 mL/min (>60); Est Glom Filt Rate - Afr Amer 51 mL/min (>60); Glucose 98 mg/dL (74-106); Potassium 4.9 mmol/L (3.5-5.1); Sodium Level 142 mmol/L (136-145)
[2018-01-14 09:00] VITALS: BP 117/57; PULSE 70; RESP 16; TEMP 36.8; O2SAT 97
--- NOTE | 2018-01-14 11:35 | CASEMGMT ---
Social Work Note DEVANG met with pt to discuss getting a walker for home. SW asked pt if she would like the walker delivered to the hospital or to home and what agency she would like the walker to be from. Pt states that she would like the walker to be delivered to the hospital and that she would like to use [employer]. DEVANG faxed walker order to [employer] and spoke with Karolyn providing pt's information. Karolyn states that she will be at [facility] to deliver the walker. Plan: Pt to discharge home with walker Manjula MCGREGOR, FLOW MANAGER.
[2018-01-14 15:00] VITALS: BP 137/65; PULSE 79; RESP 16; TEMP 36.6; O2SAT 95
[2018-01-14 16:00] VITALS: O2SAT 95
--- NOTE | 2018-01-14 16:20 | PCM.DC ---
- Discharge Diagnoses Current Active Problems: Current Active and Chronic Problems Intractable back pain (Acute) Intractable rib pain (Acute) HTN (hypertension) (Chronic) Hypothyroidism (Chronic) Neuropathy (Chronic) History of breast cancer (Chronic) R Breast CA s/p lumpectomy and radiation. You will use the following diet at home:: Cardiac Your food should be the consistency of: Regular Your liquids should be the consistency of: Regular/Thin Discharge Activity: Return to Normal Activity - As tolerated. Allergies/Adverse Reactions: Allergies iron Allergy (Verified 01/12/18 15:06) Unknown pentazocine [From [place]win] Allergy (Verified 01/12/18 15:06) Other scopolamine Allergy (Verified 01/12/18 15:06) Other Medications to take at Discharge Gabapentin [Neurontin] 200 mg PO QHS 01/11/18 Hydrochlorothiazide [Hctz] 25 mg PO DAILY 01/11/18 Levothyroxine [Synthroid] 88 mcg PO DAILY 01/11/18 Valsartan 80 mg PO DAILY 01/11/18 Oxycodone [Oxyir] 5 mg PO Q4H PRN PRN 5 Days #25 tab 01/14/18 The following prescriptions were given: Oxycodone [Oxyir] 5 mg PO Q4H PRN PRN 5 Days #25 tab PRN Reason: Severe Pain (6-10/10) Primary Care Physician: Pita Watkins,Out of [Primary Care Provider] - Please follow up with your Primary Care Physician in: 5 to 7 days.
--- NOTE | 2018-01-14 16:22 | PCM.DC.SUM ---
Discharge Date and Diagnosis - Problem List Patient Problems: Active and Suspected Problems Intractable back pain (Acute) Intractable rib pain (Acute) Date of Admission: 01/12/18 Date of Discharge: 01/14/18 - Primary Discharge Diagnosis Active and Suspected Problems Intractable back pain (Acute) Intractable rib pain (Acute) - Secondary Discharge Diagnosis Chronic Problems HTN (hypertension) (Chronic) Hypothyroidism (Chronic) Neuropathy (Chronic) History of breast cancer (Chronic) R Breast CA s/p lumpectomy and radiation. Hospital Course and Treatment Imaging Results: Diagnostic Data Abdomen/Pelvis CT 01/12/18 15:36 IMPRESSION: There are no definite acute abnormalities. There is a distended common bile duct. Electronically Signed: Gordon Trevino MD at 17:00 EDT , Service support , Chest CT 01/12/18 15:36 IMPRESSION: Fibrotic COPD. No definite acute abnormality. Electronically Signed: Gordon Trevino MD at 17:03 EDT , Service support , ADDENDUM: 01/12/18 1529 STORE TEAM LEADER: none. Operations: None Procedures: None Summary of Care Provided: Patient is an 32 years old female who presents to ED after fall, complaining of severe pain. She fell at home the day prior while going down the steps, noted to have fall on the 3rd step to the floor onto a wooden surface onto her R side and R lateral back. She is having worsening of pain. She had CT of chest and abd/pelvis, which were essentially unremarkable, but had questionable non-displaced fracture of right 7th rib. She is complaining of right posterolateral chest wall and right lower back pain with any movement. #1 intractable chest wall and back pain. Imaging studies with CT chest, abd, and pelvis unremarkable except for possible 7th rib fracture on right side. She is on oxycodone 5 to 10 mg po q4hr prn and fentanyl IV 25 mcg q1h prn. She does well if she is not moving, but any movement trigger sharp pain. Encourage her to participate in physical therapy. She was doing much better in terms of mobility the following day. Although she continues to have thorax and low back pain, she was able to do most of tasks with physical therapy. Decision was made to discharge to home with oxycodone 5 m po po q4hr prn. #25 x 0 given. Follow up with PCP. Home care for home PT/OT. #2 Essential hypertension. Blood pressure adequate. Restart HCTZ and ARB upon discharge. #3 BRIGHT. Creatinine 1.52 on admission, normalized after IVF. #4 Neuropathy. Continue Neurontin. #5 Macrocytic Anemia: Admission Hgb 11.6, baseline last lab 2014, MCV elevated, will obtain Fe panel, ferritin, vitamin B12, folic acid. She is full code. Disposition: Home. Discharge Diet: - - Cardiac Discharge Activity: Return to Normal Activity - As tolerated. Home Medications: Medications to take at Discharge Gabapentin [Neurontin] 200 mg PO QHS 01/11/18 Hydrochlorothiazide [Hctz] 25 mg PO DAILY 01/11/18 Levothyroxine [Synthroid] 88 mcg PO DAILY 01/11/18 Valsartan 80 mg PO DAILY 01/11/18 Oxycodone [Oxyir] 5 mg PO Q4H PRN PRN 5 Days #25 tab 01/14/18 Following Prescrptions Were Given to Patient: Oxycodone [Oxyir] 5 mg PO Q4H PRN PRN 5 Days #25 tab PRN Reason: Severe Pain (6-10/10) Primary Care Physician: Pita Watkins,Out of [Primary Care Provider] - Please follow up with your Primary Care Physician in: 5 to 7 days. Disposition: Home with Home Health Patient Condition:: Good Medical Necessity - Tobacco Use Smoking Status: Former smoker Tobacco Use: Non-smoker Meaningful Use Info Meaningful Use Diagnoses (Choose all that apply): None applicable Code Visit OBSV E&M: 76632 Observation care discharge
--- NOTE | 2018-01-14 16:29 | DS.PCM_ITS ---
Discharge Date and Diagnosis - Problem List Patient Problems: Active and Suspected Problems Intractable back pain (Acute) Intractable rib pain (Acute) Date of Admission: 01/12/18 Date of Discharge: 01/14/18 - Primary Discharge Diagnosis Active and Suspected Problems Intractable back pain (Acute) Intractable rib pain (Acute) - Secondary Discharge Diagnosis Chronic Problems HTN (hypertension) (Chronic) Hypothyroidism (Chronic) Neuropathy (Chronic) History of breast cancer (Chronic) R Breast CA s/p lumpectomy and radiation. Hospital Course and Treatment Imaging Results: Diagnostic Data Abdomen/Pelvis CT 01/12/18 15:36 IMPRESSION: There are no definite acute abnormalities. There is a distended common bile duct. Electronically Signed: Gordon Trevino MD at 17:00 EDT , Service support , Chest CT 01/12/18 15:36 IMPRESSION: Fibrotic COPD. No definite acute abnormality. Electronically Signed: Gordon Trevino MD at 17:03 EDT , Service support , ADDENDUM: 01/12/18 7222 RECREATION PROGRAM COORDINATOR: none. Operations: None Procedures: None Summary of Care Provided: Patient is an 32 years old female who presents to ED after fall, complaining of severe pain. She fell at home the day prior while going down the steps, noted to have fall on the 3rd step to the floor onto a wooden surface onto her R side and R lateral back. She is having worsening of pain. She had CT of chest and abd/pelvis, which were essentially unremarkable, but had questionable non-displaced fracture of right 7th rib. She is complaining of right posterolateral chest wall and right lower back pain with any movement. #1 intractable chest wall and back pain. Imaging studies with CT chest, abd, and pelvis unremarkable except for possible 7th rib fracture on right side. She is on oxycodone 5 to 10 mg po q4hr prn and fentanyl IV 25 mcg q1h prn. She does well if she is not moving, but any movement trigger sharp pain. Encourage her to participate in physical therapy. She was doing much better in terms of mobility the following day. Although she continues to have thorax and low back pain, she was able to do most of tasks with physical therapy. Decision was made to discharge to home with oxycodone 5 m po po q4hr prn. #25 x 0 given. Follow up with PCP. Home care for home PT/ OT. #2 Essential hypertension. Blood pressure adequate. Restart HCTZ and ARB upon discharge. #3 BRIGHT. Creatinine 1.52 on admission, normalized after IVF. #4 Neuropathy. Continue Neurontin. #5 Macrocytic Anemia: Admission Hgb 11.6, baseline last lab 2014, MCV elevated, will obtain Fe panel, ferritin, vitamin B12, folic acid. She is full code. Disposition: Home. Discharge Diet: - - Cardiac Discharge Activity: Return to Normal Activity - As tolerated. Home Medications: Medications to take at Discharge Gabapentin [Neurontin] 200 mg PO QHS 01/11/18 Hydrochlorothiazide [Hctz] 25 mg PO DAILY 01/11/18 Levothyroxine [Synthroid] 88 mcg PO DAILY 01/11/18 Valsartan 80 mg PO DAILY 01/11/18 Oxycodone [Oxyir] 5 mg PO Q4H PRN PRN 5 Days #25 tab 01/14/18 Following Prescrptions Were Given to Patient: Oxycodone [Oxyir] 5 mg PO Q4H PRN PRN 5 Days #25 tab PRN Reason: Severe Pain (6-10/10) Primary Care Physician: Pita Watkins,Out of [Primary Care Provider] - Please follow up with your Primary Care Physician in: 5 to 7 days. Disposition: Home with Home Health Patient Condition:: Good Medical Necessity - Tobacco Use Smoking Status: Former smoker Tobacco Use: Non-smoker Meaningful Use Info Meaningful Use Diagnoses (Choose all that apply): None applicable Code Visit OBSV E&M: 25166 Observation care discharge
== END 2018-01-14 17:15 | disposition home or self-care (01) ==
LOC: ED 17:37 → MS3 17:39
PROVIDERS: Admitting Provider Family Medicine; Emergency Provider Emergency Medicine; Visit Provider Hospitalist
DX: M54.5 Low back pain (principal); R73.9 Hyperglycemia, unspecified; K21.9 Gastro-esophageal reflux disease without esophagitis; S20.211A Contusion of right front wall of thorax, initial encounter; W10.9XXA Fall (on) (from) unspecified stairs and steps, initial encounter; Y93.89 Activity, other specified; Y92.009 Unspecified place in unspecified non-institutional (private) residence as the place of occurrence of the external cause; R07.81 Pleurodynia; I10 Essential (primary) hypertension; E03.9 Hypothyroidism, unspecified; N17.9 Acute kidney failure, unspecified; G62.9 Polyneuropathy, unspecified; D53.9 Nutritional anemia, unspecified; Z85.3 Personal history of malignant neoplasm of breast; Z79.899 Other long term (current) drug therapy; Z91.81 History of falling; Z92.3 Personal history of irradiation; Z87.891 Personal history of nicotine dependence
CPT/HCPCS: 36415; 71260; 74177; 80048; 80053; 82607; 82728; 82746; 83036; 83540; 83550; 83735; 85025; 85027; 96361; 96374; 96375; 96376; 97162; 97166; 99218; 99284; J7030; Q9967; A4216; G0378; J2405

== ENCOUNTER 2018-01-18 08:41 | Observation (INO) | payer OTHER, MEDICARE, SELFPAY ==
[2018-01-18] VITALS (12 sets, daily range): BP systolic 160–194; BP diastolic 68–86; PULSE 62–82; RESP 8–18; TEMP 36.7–37.6; O2SAT 92–99; BMI 25.7; BMI 25.2
--- NOTE | 2018-01-18 08:56 | EKG12_ITS ---
Test Reason : CP Blood Pressure : / mmHG Vent. Rate : 076 BPM Atrial Rate : 076 BPM P-R Int : 148 ms QRS Dur : 076 ms QT Int : 386 ms P-R-T Axes : 071 036 056 degrees QTc Int : 434 ms Normal sinus rhythm Normal ECG Confirmed by AICHA SERRANO, ERICA ([id number]), slot editor JOSE LUIS BORREGO ([id number]) on 01/24/2018 2:32:45 PM Referred By: DOROTHY Confirmed By:ERICA HOLCOMB MD
--- NOTE | 2018-01-18 08:56 | ED.VISSUMM ---
- ER Visit Summary Date of Service: 01/18/18 Chief Complaint: Chest pain History of Present Illness: The patient is a [address] Capellan. She reports that she was awakened by chest pain at 7:00 this morning. It is a constant dull, pressure that is 9 out of 10 at worst and 510 currently. Is worsened by breathing and relieved by nothing. She reports she has had nausea, but has not vomited. No shortness of breath or diaphoresis. Patient denies having had anything like this previously. Patient reports that she has broken ribs on the right that happened from a fall 6 days ago. She has had nothing like this with the broken ribs prior to today. Physical Examination: Vitals: Stable. Afebrile. General: Well-nourished and well-developed. Head: Normocephalic atraumatic. Neck: Supple, no lymphadenopathy. No JVD. Nontender. Cardiovascular: Regular rate and rhythm. No murmurs. Respiratory: No respiratory distress. Clear to auscultation bilaterally. Severe tenderness to palpation to the lower ribs on the right. Abdominal: Soft, nontender, nondistended, normal bowel sounds. No guarding, rebound, or peritoneal signs. Back: Nontender. Extremities: Nontender, 1+ pitting edema to her lower extremities bilaterally. Skin: Normal color, no rash. Neurologic: Alert and oriented ?3. Cranial nerves II through XII are intact. Normal strength and sensation. Psych: Depressed affect. Test Results: EKG is sinus at 76 with nonspecific changes. CBC is marked for a white count of 4.0 and H&H of 11.1 and 32.8. Chem-7 is more for BUN 21 creatinine 1.15. Troponin is negative. Chest x-ray shows chronic changes and atelectasis. Emergency Department Course and Treatment: Patient had an IV placed. She was treated with aspirin p.o. patient come continues to complain of severe pain. She was given a dose of morphine and Zofran IV. Review of the patient's chart shows that she was admitted from January 12 - January 14 with intractable chest pain following a fall. The patient and family are adamant that this is different and had not started until this morning. I did raise the possibility of getting a 3 hour troponin and outpatient workup, but they are not comfortable with this. Treatment Plan: The patient will be discussed with the hospitalist and admitted for further evaluation and treatment. Disposition: Admitted in stable condition. Impression: 1. Atypical chest pain. 2. SARAN score of 2. 3. Right 11th rib fracture. This note was generated with [employer] dictation software. It may contain incorrect words, spelling, and punctuation that were not noted in review of the chart prior to signing ED Disposition - Plan for ED Patient: Chief Complaint: Chest Pain Referrals: Town Doctor,Out of [NON-STAFF] -
--- NOTE | 2018-01-18 09:19 | NURSING ---
NO LW OR POA
--- NOTE | 2018-01-18 09:25 | RAD_ITS ---
STUDY: X-RAY CHEST REASON FOR EXAM: Female, 82 years old. Chest pain. Right rib pain. Recent fall. TECHNIQUE: Single AP portable view of the chest. COMPARISON: Comparison is made with prior study dated February 22, 2016. FINDINGS: EKG electrodes are seen. Hyperinflation. Increased markings are seen in the left lower lobe with blunting of the left costophrenic angle. This may represent either left basilar atelectasis and/or early infiltrate. Surgical clips are once again seen overlying the lateral inferior right hemithorax. There is blunting of the right costophrenic angle as well. Normal size heart. Normal mediastinum and david. Normal visualized pulmonary arteries. There is atherosclerotic calcification of the aortic arch with tortuosity. There are diffuse degenerative changes of the visualized thoracic spine. Normal visualized ribs, clavicles, and shoulders. There is no demonstrated abnormality of the visualized soft tissue structures of the upper abdomen. RAD/Chest 1 View (Portable) IMPRESSION: Hyperinflation. Atelectasis and/or early infiltrate in the left lower lobe with blunting of both costophrenic angles worse on the left side. Electronically Signed: Marcus Calloway MD at 10:08 EDT Tel [phone], Service support ,
[2018-01-18 09:36] LABS: Anion Gap 9 (5-15); BUN 21 mg/dL (7-18); BUN/Creat Ratio 18.3 RATIO (10-20); Calcium,Total 8.8 mg/dL (8.5-10.1); Chloride 107 mmol/L (98-107); Creatinine, Serum 1.15 mg/dL (0.55-1.02); EST Glomerular Filtration Rate 48 mL/min (>60); Est Glom Filt Rate - Afr Amer 58 mL/min (>60); Estimated Creatinine Clearance 37.31 ml/min; Glucose 96 mg/dL (74-106); Potassium 4.2 mmol/L (3.5-5.1); Sodium Level 142 mmol/L (136-145)
[2018-01-18 09:39] LABS: Absolute Lymphocyte Count 1.28 X10^3/ul (0.83-4.51); Absolute Neutrophil Count 2.3 X10^3/uL (2.0-7.7); Basophil# 0.01 X10^3/uL; Basophil% 0.2 % (0-1); Eosinophil# 0.11 X10^3/uL; Eosinophils% 2.7 % (0-5); Hematocrit 32.8 % (37-47); Hemoglobin 11.1 g/dl (12.0-15.0); Lymphocyte # 1.28 X10^3/ul (4.0); Lymphocyte % 31.8 % (19-41); Mean Corp Hgb Conc 33.8 g/gl (32-36); Mean Corpuscular Hgb 33.1 pg (27.0-32.0); Mean Corpuscular Volume 97.9 fL (81-99); Mean Platelet Vol. 9.4 fl (6.2-12.0); Monocyte# 0.37 X10^3/uL; Monocyte% 9.2 % (0-10); Neutrophil # 2.26 X10^3/uL (2.7-7.7); Neutrophil % 56.1 % (47-70); Platelet Count 223 K/mm3 (150-450); RBC Distribution Width CV 12.2 % (11.6-14.6); RBC Distribution Width SD 41.5 fl (35.1-43.9); Red Blood Count 3.35 M/mm3 (4.2-5.4)
[2018-01-18 09:44] LABS: POSITIVE COUNT NO; POSITIVE DIFFERENTIAL NO; POSITIVE MORPHOLOGY NO
[2018-01-18] MEDS: Ondansetron 4 MG/2 ML Vial IV ×3 (10:36→21:28)
[2018-01-18] MEDS: Morphine 4 MG/ML Syringe IV (10:36)
--- NOTE | 2018-01-18 11:34 | NURSING ---
DR HERNAN DE LA CRUZ
--- NOTE | 2018-01-18 11:48 | NURSING ---
117 OBS CP SEMENTI
--- NOTE | 2018-01-18 13:55 | CASEMGMT ---
[facility]PTW[facility] SPINNERLuzma told SW that patient and family were asking about TCU. DEVANG called Lina in TCU and she would be able to take patient pending insurance. DEVANG spoke with patient and her daughter, introduced self and role at [facility]. They confirmed they would like TCU. DEVANG told them that TCU could take patient, but insurance would have to approve first. DEVANG explained that therapy will see patient and then insurance will review information and determine if she qualifies for custodial level of care. They thanked DEVANG for the information. Christy PURDY MSW
[2018-01-18] MEDS: 0.9% NaCl Peripheral Flush Adult/Peds IV (14:47)
--- NOTE | 2018-01-18 14:56 | HP.PCM_ITS ---
Problem List (1) HTN (hypertension) Status: Chronic Qualifiers: (2) Hypothyroidism Status: Chronic Qualifiers: (3) Neuropathy Status: Chronic (4) History of breast cancer Status: Chronic Comment: R Breast CA s/p lumpectomy and radiation. (5) Intractable back pain Status: Acute (6) Intractable rib pain Status: Acute (7) Chest pain Status: Acute History of Present Illness Date of Admission: 01/18/18 Chief Complaint: Chest pain, nausea, intractable back pain/rib pain The patient is a 82 year old F who presents to the emergency room with chest pain which she states awoke her from sleep this morning at 7 AM. She describes associated nausea. Denies diaphoresis, shortness of breath, dizziness, palpitations. She states she has not had similar pain to this in the past. She denies pain radiation. Patient follows with Dr. Galdamez CCP[facility]ton for hypertension and history of SVT. She had a normal stress echo within the past 2 years. Her office visit reports, patient has had recurrent chest pain. Patient received morphine in the emergency room. She continues to have mild continuous substernal chest pain. She states pain is worse with deep breathing. Patient presented to primary care office yesterday due to sacroiliac pain and lower extremity swelling. Ultrasound bilateral lower extremities were negative for DVT and the sacroiliac joints and pelvis x-ray were unremarkable. Patient was recently admitted January 12 - January 14 for intractable chest pain following a fall which resulted in right seventh rib fracture. At that time, she also noted thorax and low back pain. CT of chest, abdomen and pelvis were unremarkable with the exception of possible seventh rib fracture in the right side. She was discharged on oral pain regimen. Patient did well with physical therapy and was discharged home. Patient and family are now asking about transitional care unit at discharge during this admission. Patient has a past medical history of SVT, hypertension, hyperlipidemia, hypothyroidism, neuropathy, history of breast cancer status post right breast lumpectomy and radiation, history of colitis, vitamin D deficiency. Past Medical History Past Medical History (Chronic Problems): Chronic Problems HTN (hypertension) (Chronic) Hypothyroidism (Chronic) Neuropathy (Chronic) History of breast cancer (Chronic) R Breast CA s/p lumpectomy and radiation. Allergies iron Allergy (Verified 01/18/18 08:47) Unknown pentazocine [From Talwin] Allergy (Verified 01/18/18 08:47) Other scopolamine Allergy (Verified 01/18/18 08:47) Other Home Medications: Ambulatory Orders Medication Instructions Recorded Aspirin [Aspirin, Baby] 81 mg PO DAILY@0800 01/18/18 Azelastine HCl [Astelin] 2 spray NASAL BID PRN 01/18/18 Biotin 1 mg PO DAILY 01/18/18 Budesonide [Entocort EC] 9 mg PO DAILY 01/18/18 Cholecalciferol (Vitamin D3) 2,000 unit PO DAILY 01/18/18 [Vitamin D3] Hydrochlorothiazide [Hctz] 25 mg PO DAILY 01/18/18 Lactobacillus Acidophilus 1 each PO DAILY 01/18/18 [Acidophilus Lactobacilli] Levothyroxine [Synthroid] 88 mcg PO DAILY 01/18/18 Multivitamins,Ther W-Minerals 1 tablet PO DAILY 01/18/18 [Multivitamin With Minerals] Ubidecarenone [Co Q-10] 75 mg PO DAILY 01/18/18 Valsartan [Diovan] 80 mg PO DAILY 01/18/18 Surgical History: - - Right breast lumpectomy, hysterectomy, appendectomy. Psychiatric History: No pertinent psych hx [employer]ANT ATTENDANT History: No pertinent [employer] ATTENDANT history Smoking Status: Former smoker Alcohol: None Drugs: None - *Family History Maternal History Items: Heart Disease, Hypertension Paternal History Items: Heart Disease, Hypertension Review of Systems Constitutional: Denies: Chills, Fever, Weight Change HEENT: Denies: Head Aches, Sinus Congestion, Sinus Drainage Cardiovascular: Reports: Chest Pain. Denies: Edema, Palpitations, Syncope Respiratory: Denies: Cough, Shortness of breath at rest, Sputum production Gastrointestinal: Reports: Nausea. Denies: Abdominal Pain, Constipation, Diarrhea, Vomiting Genitourinary: Denies: Dysuria Musculoskeletal: Reports: Back Pain - Right-sided lumbar, - - Right rib pain Skin: Denies: Rash, Wounds Neurological: Denies: Numbness, Tingling, Focal weakness Psychiatric: Denies: Anxiety, Depression, Homicidal Ideations, Suicidal Ideations Hematologic/ Lymphatic: Denies: Easy Bruising, Easy Bleeding VTE Information - Inpt Only VTE Present on Admission: No VTE Mechan Device Prophylaxis: SCD's VTE Pharm Prophylaxis ordered?: Yes Patient Problems: Active and Suspected Problems Chest pain (Acute) - Physical Exam General: Alert, Oriented x3, Cooperative, No apparent distress HEENT: Atraumatic, PERRLA, EOMI, Normocephalic Neck: Supple, No JVD, Negative Carotid Bruits Lungs: Clear to auscultation, Normal air movement Cardiovascular: Regular rate, Regular Rhythm, Normal S1, Normal S2, No murmurs Abdomen: Bowel Sounds Present, Soft, Non Tender, Non-Distended Extremities: No clubbing, No cyanosis, No edema, Capillary Refill Less than 3 Seconds Skin: No rashes, No breakdown Musculoskeletal: - - Tenderness to palpation lower back on the right side, right rib area tender to palpation. Neurological: Cranial nerves II-XII grossly intact, Neuro grossly intact Psych/Mental Status: Normal Affect, Appropriate Vital Signs Temp Pulse Resp BP Pulse Ox 98.8 F 70 16 160/83 H 92 01/18/18 12:16 01/18/18 12:43 01/18/18 12:16 01/18/18 12:16 01/18/18 12:16 Oxygen Delivery Method Room Air Weight: 73.1 kg Body Mass Index (BMI) 25.2 Assessment/Plan Active and Suspected Problems Chest pain (Acute) 1. Atypical chest pain-patient follows with VADIM Crowell. Per office notes , she had a stress echo prior to visit in 08/2017 which was negative for ischemia with preserved ejection fraction. Per office visit, she has history of recurrent chest pain with normal cath and stress. Patient reportedly presented to primary care office yesterday. Outside records obtained which indicates she had a Doppler ultrasound of bilateral lower extremities which was negative for DVT. EKG and emergency room with no acute changes. Troponin negative ?1. Chest x-ray shows chronic changes and atelectasis. Trend enzymes. Repeat EKG in a.m. Suspect pain is musculoskeletal in nature given recent rib fracture secondary to mechanical fall. Check TSH, mag. Monitor telemetry. 2. Intractable right lumbar back pain/right rib pain-secondary to recent mechanical fall. Patient recently admitted January 12 - January 14 for intractable back and right rib pain after sustaining a fall going down steps. Patient had imaging by primary care physician yesterday, 01/17/18 which included x-ray of sacroiliac joints and pelvis which showed unremarkable appearance of the sacroiliac joints. Patient states the worst of her pain is right lower back area. Obtain x-ray of lumbar spine. Continue as needed pain regimen. PT/OT. CM involved, patient wishes to go to TCU at discharge. 3. Nausea-suspect secondary to opiates. Zofran as needed for nausea. Clear liquids for now. Advance diet as tolerated. Patient denies emesis or diarrhea. Denies fever, chills. Denies abdominal pain. 4. History of SVT-follows with Dr. Galdamez, [facility]. According to office visit August 2017, patient's atrial arrhythmia is stable and she was continued on Diovan. 5. Hypertension-continue home regimen of valsartan and HCTZ. 6. HLD-reported to be diet controlled. Not on statin. Check fasting lipid panel in a.m. 7. Hypothyroidism-continue home Synthroid regimen. Check TSH. 8. Neuropathy-previous discharge summary states patient was on Neurontin. Asked patient if she is still taking and she states she took herself off of it due to it not helping her pain and she no longer wanted to take it. 9. History of breast cancer-status post right breast lumpectomy and radiation. 10. History of colitis-continue home budesonide and lactobacillus regimen. 11. Vitamin D deficiency-continue vitamin D supplementation. 12. Chronic normocytic anemia-stable. 13. Chronic kidney disease stage III stable. Monitor BMP. DVT prophylaxis-heparin subcu. Discharge planning: TCU accepted patient pending insurance approval. Physical therapy evaluation pending. This patient was seen by JOVITA Rodriguez under the supervision of Dr. Robbins.
[2018-01-18 16:45] LABS: Magnesium 1.6 mg/dL (1.6-2.6); Thyroid Stim Hormone (TSH) 3.78 uIU/mL (0.358-3.74)
--- NOTE | 2018-01-18 17:30 | RAD_ITS ---
STUDY: X-RAY - LUMBAR SPINE REASON FOR EXAM: Female, 82 years old. Back pain TECHNIQUE: 2 view(s) of the lumbar spine were obtained. COMPARISON: Abdominal CT dated 01/12/2018 FINDINGS: There is no evidence of fracture or dislocation in the lumbar spine. The vertebral body heights are well-maintained. There are stable moderate degenerative changes. RAD/Lumbar Spine 2 or 3 Views IMPRESSION: No fracture or dislocation in the lumbar spine. Stable moderate degenerative changes. Electronically Signed: Win Fitzpatrick, at 18:22 EDT Tel , Service support ,
[2018-01-18] MEDS: Polyethylene Glycol 3350 17 GM PACKET PO (18:49)
[2018-01-18] MEDS: traMADol 50 MG Tablet PO (19:51)
[2018-01-18] MEDS: Bisacodyl 5 MG Tablet 10 MG PO (21:26)
[2018-01-18] MEDS: Acetaminophen 500 MG Tablet 1000 MG PO (21:27)
[2018-01-18] MEDS: Heparin Injection 5,000 UNITS/ML Syringe 5000 UNITS SC (21:27)
[2018-01-19] VITALS (10 sets, daily range): BP systolic 140–155; BP diastolic 63–83; PULSE 63–83; RESP 14–18; TEMP 36.5–36.9; O2SAT 92–95
[2018-01-19] MEDS: Levothyroxine 88 MCG Tablet PO (05:24)
[2018-01-19] MEDS: Acetaminophen 500 MG Tablet 1000 MG PO ×3 (05:25→21:28)
--- NOTE | 2018-01-19 05:55 | EKG12_ITS ---
Test Reason : MORNING EKG Blood Pressure : / mmHG Vent. Rate : 067 BPM Atrial Rate : 067 BPM P-R Int : 158 ms QRS Dur : 084 ms QT Int : 412 ms P-R-T Axes : 075 041 053 degrees QTc Int : 435 ms Normal sinus rhythm Normal ECG When compared with ECG of 18-JAN-2018 08:56, MANUAL COMPARISON REQUIRED, DATA IS UNCONFIRMED Confirmed by AICHA SERRANO, ERICA ([id number]), makeup editor JOSE LUIS BORREGO ([id number]) on 01/25/2018 9:18:49 AM Referred By: HERNAN Confirmed By:ERICA HOLCOMB MD
[2018-01-19 06:38] LABS: Hematocrit 32.5 % (37-47); Hemoglobin 10.9 g/dl (12.0-15.0); Mean Corp Hgb Conc 33.5 g/gl (32-36); Mean Corpuscular Hgb 33.3 pg (27.0-32.0); Mean Corpuscular Volume 99.4 fL (81-99); Mean Platelet Vol. 9.3 fl (6.2-12.0); Platelet Count 203 K/mm3 (150-450); RBC Distribution Width CV 12.3 % (11.6-14.6); RBC Distribution Width SD 43.3 fl (35.1-43.9); Red Blood Count 3.27 M/mm3 (4.2-5.4); White Blood Count 3.9 K/mm3 (4.4-11.0)
[2018-01-19 06:53] LABS: Scan Indicated on CBC? Y/N NO
[2018-01-19 06:55] LABS: Anion Gap 8 (5-15); BUN 22 mg/dL (7-18); Calcium,Total 8.6 mg/dL (8.5-10.1); Chloride 109 mmol/L (98-107); Cholesterol 159 mg/dL (200); EST Glomerular Filtration Rate 51 mL/min (>60); Est Glom Filt Rate - Afr Amer 61 mL/min (>60); Estimated Creatinine Clearance 39.01 ml/min; Glucose 88 mg/dL (74-106); High Density Lipoprotein 56 mg/dL; Potassium 4.2 mmol/L (3.5-5.1); Sodium Level 143 mmol/L (136-145); Triglycerides 119 mg/dL; Very Low Density Lipoprotein 24 mg/dL (5-40)
[2018-01-19] MEDS: Ondansetron 4 MG/2 ML Vial IV ×2 (08:01→14:11)
[2018-01-19 08:59] LABS: D-Dimer Quantitative (DVT/PE) 3.83 FEU/ug/m (0.27-0.49)
--- NOTE | 2018-01-19 10:26 | NURSING ---
spoke with pt and family to offer cold cloth or another comfort measures for nausea at this time. pt aware and denies any other needs
--- NOTE | 2018-01-19 12:00 | NM_ITS ---
CLINICAL: Female, 82 years old. Chest pain. NUCLEAR VENTILATION/PERFUSION - LUNG TECHNIQUE: The patient was administered 6 mCi of Tc MAA followed by a perfusion lung scan. The patient was administered 50 mCi of Tc DTPA aerosol followed by a ventilation lung scan. Comparison made to prior chest radiograph dated . COMPARISON STUDIES : Comparison is made with prior chest radiograph dated January 18, 2018. FINDINGS: The pulmonary perfusion study demonstrates uniform perfusion throughout both lung bañuelos. There are no demonstrated segmental or subsegmental perfusion defects The ventilation study demonstrates uniform ventilation throughout both lung bañuelos. There are no segmental or subsegmental ventilation abnormalities. NM/Lung Scan Vent/Perf IMPRESSION: Normal 99m Tc MAA pulmonary perfusion Tc DTPA aerosol ventilation imaging survey, according to revised PIOPED interpretive criteria. Electronically Signed: Marcus Calloway MD at 13:52 EDT Tel [phone], Service support ,
[2018-01-19] MEDS: Polyethylene Glycol 3350 17 GM PACKET PO (12:05)
[2018-01-19] MEDS: proMETHazine 25 MG/ML Syringe 12.5 MG IV (15:53)
[2018-01-19] MEDS: Magnesium Hydroxide 30 ML UDC 45 ML PO (15:53)
--- NOTE | 2018-01-19 21:09 | PCM.PROGNOTE ---
Patient Problems: Active and Suspected Problems Chest pain (Acute) Subjective: Having brief runs of SVT while she is up ambulating. She was up to the BR and the HR went up to 140....it came back down when she sat at the edge of the bed. States the nausea is better after Zofran this afternoon. She tried the Tramadol last night and thought it was effective. She has not tried it today. She has had racing heart in the past but not recently. Denies CP or SOB. discussed with SW and DC train planner and we are awaiting pre-cert form [facility] for SNF. She did ambulate in the room with PT today. BP's are high D-Dimer was high today and a VQ scan was holm and was normal Lab was personally reviewed. No significant change since yesterday. - Physical Exam General: Alert, Oriented x3, Cooperative, - - sitting at the edge of the bed and looks as though she is feeling better today HEENT: Atraumatic, PERRLA, EOMI Oral: Moist Mucosa Neck: Supple, No JVD Lungs: Clear to auscultation Cardiovascular: Regular rate, Regular Rhythm, Normal S1, Normal S2, No Gallop, - - Telemetry with a few bursts of SVT Abdomen: Bowel Sounds Present, Soft, Non-Distended, - - no BM with the Dulcolax tabs and the Miralx.....feels constipated Extremities: No edema Skin: No rashes Neurological: Cranial nerves II-XII grossly intact, Neuro grossly intact Psych/Mental Status: Normal Affect, Appropriate Vital Signs Temp Pulse Resp BP Pulse Ox 98.4 F 83 16 140/74 H 95 01/19/18 15:55 01/19/18 15:55 01/19/18 15:55 01/19/18 15:55 01/19/18 15:55 Oxygen Delivery Method Room Air Weight: 161 lb 2.526 oz Body Mass Index (BMI) 25.2 Intake and Output for Last 24 Hours 01/17/18 01/18/18 01/19/18 23:59 23:59 23:59 Intake Total 240 / 240 820 / 820 Balance 240 / 240 820 / 820 Laboratory Tests Past 24 Hrs 01/19/18 01/19/18 01/19/18 06:15 06:15 07:16 WBC 3.9 L RBC 3.27 L Hgb 10.9 L Hct 32.5 L MCV 99.4 H MCH 33.3 H MCHC 33.5 RDW 12.3 RDW Differential 43.3 Plt Count 203 MPV 9.3 D-Dimer Quant (PE/DVT) 3.83 H* Sodium 143 Potassium 4.2 Chloride 109 H Carbon Dioxide 26.0 Anion Gap 8 BUN 22 H Creatinine 1.10 H Estim Creat Clear Calc 39.01 Est GFR (MDRD) Af Amer 61 Est GFR (MDRD) Non-Af 51 L BUN/Creatinine Ratio 20.0 Glucose 88 Calcium 8.6 Triglycerides 119 Cholesterol 159 LDL Cholesterol 79 VLDL Cholesterol 24 HDL Cholesterol 56 Medical Necessity - Tobacco Use Smoking Status: Former smoker Assessment/Plan Active and Suspected Problems Chest pain (Acute) 1. Atypical chest pain-patient follows with VADIM Crowell. Per office notes, she had a stress echo prior to visit in 08/2017 which was negative for ischemia with preserved ejection fraction. Per office visit, she has history of recurrent chest pain with normal cath and stress. Patient reportedly presented to primary care office yesterday. Outside records obtained which indicates she had a Doppler ultrasound of bilateral lower extremities which was negative for DVT. EKG and emergency room with no acute changes. Troponin negative ?1. Chest x-ray shows chronic changes and atelectasis. Trend enzymes. Repeat EKG in a.m. Suspect pain is musculoskeletal in nature given recent rib fracture secondary to mechanical fall. Check TSH, mag. Monitor telemetry. 2. Intractable right lumbar back pain/right rib pain-secondary to recent mechanical fall. Patient recently admitted January 12 - January 14 for intractable back and right rib pain after sustaining a fall going down steps. Patient had imaging by primary care physician yesterday, 01/17/18 which included x-ray of sacroiliac joints and pelvis which showed unremarkable appearance of the sacroiliac joints. Patient states the worst of her pain is right lower back area. Obtain x-ray of lumbar spine. Continue as needed pain regimen. PT/OT. CM involved, patient wishes to go to TCU at discharge. 3. Nausea-suspect secondary to opiates. Zofran as needed for nausea. Clear liquids for now. Advance diet as tolerated. Patient denies emesis or diarrhea. Denies fever, chills. Denies abdominal pain. 4. History of SVT-follows with Dr. Galdamez, [facility]. According to office visit August 2017, patient's atrial arrhythmia is stable and she was continued on Diovan. Having SVT on telemetry to the 140's and 150. Will start Atenolol at bedtime to control the BP better and also to help prevent SVT 5. Hypertension-continue home regimen of valsartan and HCTZ. 6. HLD-reported to be diet controlled. Not on statin. Check fasting lipid panel in a.m. 7. Hypothyroidism-continue home Synthroid regimen. Check TSH. 8. Neuropathy-previous discharge summary states patient was on Neurontin. Asked patient if she is still taking and she states she took herself off of it due to it not helping her pain and she no longer wanted to take it. 9. History of breast cancer-status post right breast lumpectomy and radiation. 10. History of colitis-continue home budesonide and lactobacillus regimen. 11. Vitamin D deficiency-continue vitamin D supplementation. 12. Chronic normocytic anemia-stable. 13. Chronic kidney disease stage III stable. Monitor BMP. Awaiting pre-cert from [facility] to transfer to SNF Code Visit OBSV E&M: 41758 Subsequent observation care L2
--- NOTE | 2018-01-19 21:18 | PN_ITS ---
Patient Problems: Active and Suspected Problems Chest pain (Acute) Subjective: Having brief runs of SVT while she is up ambulating. She was up to the BR and the HR went up to 140....it came back down when she sat at the edge of the bed. States the nausea is better after Zofran this afternoon. She tried the Tramadol last night and thought it was effective. She has not tried it today. She has had racing heart in the past but not recently. Denies CP or SOB. discussed with SW and DC personal financial planner and we are awaiting pre-cert form [facility] for SNF. She did ambulate in the room with PT today. BP's are high D-Dimer was high today and a VQ scan was holm and was normal Lab was personally reviewed. No significant change since yesterday. - Physical Exam General: Alert, Oriented x3, Cooperative, - - sitting at the edge of the bed and looks as though she is feeling better today HEENT: Atraumatic, PERRLA, EOMI Oral: Moist Mucosa Neck: Supple, No JVD Lungs: Clear to auscultation Cardiovascular: Regular rate, Regular Rhythm, Normal S1, Normal S2, No Gallop, - - Telemetry with a few bursts of SVT Abdomen: Bowel Sounds Present, Soft, Non-Distended, - - no BM with the Dulcolax tabs and the Miralx.....feels constipated Extremities: No edema Skin: No rashes Neurological: Cranial nerves II-XII grossly intact, Neuro grossly intact Psych/Mental Status: Normal Affect, Appropriate Vital Signs Temp Pulse Resp BP Pulse Ox 98.4 F 83 16 140/74 H 95 01/19/18 15:55 01/19/18 15:55 01/19/18 15:55 01/19/18 15:55 01/19/18 15:55 Oxygen Delivery Method Room Air Weight: 161 lb 2.526 oz Body Mass Index (BMI) 25.2 Intake and Output for Last 24 Hours 01/17/18 01/18/18 01/19/18 23:59 23:59 23:59 Intake Total 240 / 240 820 / 820 Balance 240 / 240 820 / 820 Laboratory Tests Past 24 Hrs 01/19/18 01/19/18 01/19/18 06:15 06:15 07:16 WBC 3.9 L RBC 3.27 L Hgb 10.9 L Hct 32.5 L MCV 99.4 H MCH 33.3 H MCHC 33.5 RDW 12.3 RDW Differential 43.3 Plt Count 203 MPV 9.3 D-Dimer Quant (PE/DVT) 3.83 H* Sodium 143 Potassium 4.2 Chloride 109 H Carbon Dioxide 26.0 Anion Gap 8 BUN 22 H Creatinine 1.10 H Estim Creat Clear Calc 39.01 Est GFR (MDRD) Af Amer 61 Est GFR (MDRD) Non-Af 51 L BUN/Creatinine Ratio 20.0 Glucose 88 Calcium 8.6 Triglycerides 119 Cholesterol 159 LDL Cholesterol 79 VLDL Cholesterol 24 HDL Cholesterol 56 Medical Necessity - Tobacco Use Smoking Status: Former smoker Assessment/Plan Active and Suspected Problems Chest pain (Acute) 1. Atypical chest pain-patient follows with VADIM Crowell. Per office notes , she had a stress echo prior to visit in 08/2017 which was negative for ischemia with preserved ejection fraction. Per office visit, she has history of recurrent chest pain with normal cath and stress. Patient reportedly presented to primary care office yesterday. Outside records obtained which indicates she had a Doppler ultrasound of bilateral lower extremities which was negative for DVT. EKG and emergency room with no acute changes. Troponin negative ?1. Chest x-ray shows chronic changes and atelectasis. Trend enzymes. Repeat EKG in a.m. Suspect pain is musculoskeletal in nature given recent rib fracture secondary to mechanical fall. Check TSH, mag. Monitor telemetry. 2. Intractable right lumbar back pain/right rib pain-secondary to recent mechanical fall. Patient recently admitted January 12 - January 14 for intractable back and right rib pain after sustaining a fall going down steps. Patient had imaging by primary care physician yesterday, 01/17/18 which included x-ray of sacroiliac joints and pelvis which showed unremarkable appearance of the sacroiliac joints. Patient states the worst of her pain is right lower back area. Obtain x-ray of lumbar spine. Continue as needed pain regimen. PT/OT. CM involved, patient wishes to go to TCU at discharge. 3. Nausea-suspect secondary to opiates. Zofran as needed for nausea. Clear liquids for now. Advance diet as tolerated. Patient denies emesis or diarrhea. Denies fever, chills. Denies abdominal pain. 4. History of SVT-follows with Dr. Galdamez, [facility]. According to office visit August 2017, patient's atrial arrhythmia is stable and she was continued on Diovan. Having SVT on telemetry to the 140's and 150. Will start Atenolol at bedtime to control the BP better and also to help prevent SVT 5. Hypertension-continue home regimen of valsartan and HCTZ. 6. HLD-reported to be diet controlled. Not on statin. Check fasting lipid panel in a.m. 7. Hypothyroidism-continue home Synthroid regimen. Check TSH. 8. Neuropathy-previous discharge summary states patient was on Neurontin. Asked patient if she is still taking and she states she took herself off of it due to it not helping her pain and she no longer wanted to take it. 9. History of breast cancer-status post right breast lumpectomy and radiation. 10. History of colitis-continue home budesonide and lactobacillus regimen. 11. Vitamin D deficiency-continue vitamin D supplementation. 12. Chronic normocytic anemia-stable. 13. Chronic kidney disease stage III stable. Monitor BMP. Awaiting pre-cert from [facility] to transfer to SNF Code Visit OBSV E&M: 80610 Subsequent observation care L2
[2018-01-19] MEDS: Atenolol 25 MG Tablet PO (23:05)
[2018-01-20] VITALS (12 sets, daily range): BP systolic 126–163; BP diastolic 59–79; PULSE 56–79; RESP 16–18; TEMP 36.6–37.1; O2SAT 94–98
[2018-01-20] MEDS: Mag Hydrox/Al Hydrox/Simeth 30 ML UDC PO (01:19)
[2018-01-20] MEDS: traMADol 50 MG Tablet PO ×3 (04:33→21:37)
[2018-01-20] MEDS: Loperamide 2 MG Capsule 4 MG PO ×4 (05:24→21:38)
[2018-01-20] MEDS: Levothyroxine 88 MCG Tablet PO (05:25)
[2018-01-20] MEDS: Acetaminophen 500 MG Tablet 1000 MG PO ×2 (05:26→16:04)
[2018-01-20] MEDS: Multivitamins,Ther W-Minerals Tablet 1 TABLET PO (08:07)
[2018-01-20] MEDS: Aspirin E.C. 81 MG Tablet PO (08:07)
[2018-01-20] MEDS: Famotidine 20 MG Tablet PO (08:08)
--- NOTE | 2018-01-20 14:29 | CASEMGMT ---
DEVANG let patient and family know that we are just waiting on insurance to approve her stay at [facility]. SW told them she will stay here until we get an answer. They asked what happens if insurance says no. DEVANG told them that we would set up home health. DEVANG then explained what insurance covers as far as home health. They were concerned that would not be enough. DEVANG also told them about private duty. DEVANG told them SW has a list of private duty agencies if they decide they need one. DEVANG also gave them information on companies that have stair lifts and rent lift chairs. Plan: [facility] pending pre-cert. Christy PURDY MSW
--- NOTE | 2018-01-20 20:58 | PN_ITS ---
Patient Problems: Active and Suspected Problems Chest pain (Acute) Subjective: Heart rate and blood pressure are much better controlled with the addition of atenolol to her drug regimen. Good results with milk of magnesia yesterday. Has been taking tramadol with good pain relief and no nausea. Continues to complain of a.m. chest pain left precordium. Objective: - Physical Exam General: Alert, Oriented x3, Cooperative, - - sitting in bedside chair today, appears in no distress HEENT: Atraumatic, PERRLA, EOMI Oral: Moist Mucosa Neck: Supple, No JVD Lungs: Clear to auscultation Cardiovascular: Regular rate, Regular Rhythm, Normal S1, Normal S2, No Gallop, - - Abdomen: Bowel Sounds Present, Soft, Non-Distended, - Extremities: No edema Skin: No rashes Neurological: Cranial nerves II-XII grossly intact, Neuro grossly intact Psych/Mental Status: Normal Affect, Appropriate - Physical Exam Vital Signs Temp Pulse Resp BP Pulse Ox 98.1 F 63 16 129/78 H 95 01/20/18 18:16 01/20/18 18:58 01/20/18 18:16 01/20/18 18:16 01/20/18 18:16 Oxygen Delivery Method Room Air Weight: 161 lb 2.526 oz Body Mass Index (BMI) 25.2 Intake and Output for Last 24 Hours 01/18/18 01/19/18 01/20/18 23:59 23:59 23:59 Intake Total 240 / 240 1180 / 1180 660 / 660 Balance 240 / 240 1180 / 1180 660 / 660 Medical Necessity - Tobacco Use Smoking Status: Former smoker Assessment/Plan Active and Suspected Problems Chest pain (Acute) 1. Atypical chest pain-patient follows with VADIM Crowell. Per office notes , she had a stress echo prior to visit in 08/2017 which was negative for ischemia with preserved ejection fraction. Per office visit, she has history of recurrent chest pain with normal cath and stress. Patient reportedly presented to primary care office yesterday. Outside records obtained which indicates she had a Doppler ultrasound of bilateral lower extremities which was negative for DVT. EKG and emergency room with no acute changes. Troponin negative ?1. Chest x-ray shows chronic changes and atelectasis. Trend enzymes. Repeat EKG in a.m. Suspect pain is musculoskeletal in nature given recent rib fracture secondary to mechanical fall. Check TSH, mag. Monitor telemetry. 2. Intractable right lumbar back pain/right rib pain-secondary to recent mechanical fall. Patient recently admitted January 12 - January 14 for intractable back and right rib pain after sustaining a fall going down steps. Patient had imaging by primary care physician yesterday, 01/17/18 which included x-ray of sacroiliac joints and pelvis which showed unremarkable appearance of the sacroiliac joints. Patient states the worst of her pain is right lower back area. Obtain x-ray of lumbar spine. Continue as needed pain regimen. PT/OT. CM involved, patient wishes to go to TCU at discharge. 3. Nausea-suspect secondary to opiates. Zofran as needed for nausea. Clear liquids for now. Advance diet as tolerated. Patient denies emesis or diarrhea. Denies fever, chills. Denies abdominal pain. 4. History of SVT-follows with Dr. Galdamez, [facility]. According to office visit August 2017, patient's atrial arrhythmia is stable and she was continued on Diovan. Having SVT on telemetry to the 140's and 150. Will start Atenolol at bedtime to control the BP better and also to help prevent SVT 5. Hypertension-continue home regimen of valsartan and HCTZ. 6. HLD-reported to be diet controlled. Not on statin. Check fasting lipid panel in a.m. 7. Hypothyroidism-continue home Synthroid regimen. Check TSH. 8. Neuropathy-previous discharge summary states patient was on Neurontin. Asked patient if she is still taking and she states she took herself off of it due to it not helping her pain and she no longer wanted to take it. 9. History of breast cancer-status post right breast lumpectomy and radiation. 10. History of colitis-continue home budesonide and lactobacillus regimen. 11. Vitamin D deficiency-continue vitamin D supplementation. 12. Chronic normocytic anemia-stable. 13. Chronic kidney disease stage III stable. Monitor BMP. Awaiting pre-cert from [facility] to transfer to [facility] Chemical nuclear stress in the AM......atypical CP with hx of normal cath and stresses in the past. Discuss anxiety and depression with her if the stress is negative Code Visit OBSV E&M: 00067 Subsequent observation care L2
[2018-01-20] MEDS: Atenolol 25 MG Tablet PO (21:38)
[2018-01-21] VITALS (7 sets, daily range): BP systolic 119–150; BP diastolic 67–90; PULSE 53–60; RESP 18; TEMP 36.7–37.1; O2SAT 93–95
[2018-01-21 04:49] LABS: Absolute Lymphocyte Count 1.78 X10^3/ul (0.83-4.51); Absolute Neutrophil Count 1.4 X10^3/uL (2.0-7.7); Basophil# 0.01 X10^3/uL; Basophil% 0.3 % (0-1); Eosinophil# 0.11 X10^3/uL; Eosinophils% 2.9 % (0-5); Hematocrit 30.4 % (37-47); Hemoglobin 9.8 g/dl (12.0-15.0); Lymphocyte # 1.78 X10^3/ul (4.0); Mean Corp Hgb Conc 32.2 g/gl (32-36); Mean Corpuscular Hgb 32.5 pg (27.0-32.0); Mean Corpuscular Volume 100.7 fL (81-99); Mean Platelet Vol. 9.1 fl (6.2-12.0); Monocyte# 0.49 X10^3/uL; Monocyte% 12.9 % (0-10); Neutrophil # 1.39 X10^3/uL (2.7-7.7); Neutrophil % 36.6 % (47-70); POSITIVE COUNT NO; POSITIVE DIFFERENTIAL NO; POSITIVE MORPHOLOGY NO; Platelet Count 179 K/mm3 (150-450); RBC Distribution Width CV 13.1 % (11.6-14.6); RBC Distribution Width SD 47.9 fl (35.1-43.9); Red Blood Count 3.02 M/mm3 (4.2-5.4); White Blood Count 3.8 K/mm3 (4.4-11.0)
[2018-01-21 04:55] LABS: Prothrombin Time (Protime)PT. 13.5 SECONDS (11.7-14.9)
[2018-01-21 04:56] LABS: Partial Thromboplast Time 34.9 Seconds (24.1-36.2)
[2018-01-21 05:05] LABS: Anion Gap 7 (5-15); BUN 26 mg/dL (7-18); BUN/Creat Ratio 23.6 RATIO (10-20); Calcium,Total 8.4 mg/dL (8.5-10.1); Chloride 107 mmol/L (98-107); EST Glomerular Filtration Rate 51 mL/min (>60); Est Glom Filt Rate - Afr Amer 61 mL/min (>60); Estimated Creatinine Clearance 39.01 ml/min; Glucose 81 mg/dL (74-106); Potassium 4.2 mmol/L (3.5-5.1); Sodium Level 143 mmol/L (136-145)
--- NOTE | 2018-01-21 05:55 | EKG12_ITS ---
Test Reason : AM EKG Blood Pressure : / mmHG Vent. Rate : 053 BPM Atrial Rate : 053 BPM P-R Int : 172 ms QRS Dur : 078 ms QT Int : 436 ms P-R-T Axes : 057 029 041 degrees QTc Int : 409 ms Sinus bradycardia Otherwise normal ECG When compared with ECG of 19-JAN-2018 05:10, MANUAL COMPARISON REQUIRED, DATA IS UNCONFIRMED Confirmed by AICHA SERRANO, ERICA ([id number]), editor in chief newspaper JOSE LUIS BORREGO ([id number]) on 01/25/2018 9:15:32 AM Referred By: HERNAN Confirmed By:ERICA HOLCOMB MD
[2018-01-21] MEDS: Acetaminophen 500 MG Tablet 1000 MG PO ×2 (05:59→15:36)
[2018-01-21] MEDS: Levothyroxine 88 MCG Tablet PO (06:00)
[2018-01-21] MEDS: Aspirin E.C. 81 MG Tablet PO (06:00)
--- NOTE | 2018-01-21 10:27 | STRESSREP ---
Stress Test Report Pharmacologic myocardial perfusion stress test 82-year-old lady with a history of chest pain. Stress protocol: Resting EKG demonstrates sinus bradycardia with a rate of 54 bpm normal intervals and noted resting blood pressure is 136/78 mmHg. 0.4 mg of regadenoson was infused per usual protocol followed by rapid intravenous saline flush injection continuous EKG monitoring was performed. The maximum heart rate attained was 75 bpm which was 53% maximum predicted heart rate the maximum workload attained was 1 metabolic equivalent. At rest there were no ST or T-wave changes noted to suggest abnormal flow reserve at peak infusion no ST or T-wave changes were noted to suggest abnormal flow reserve. Myocardial perfusion protocol. 11.3 mCi of technetium 99m sestamibi was injected at rest. 0.4 mg regadenoson was infused per usual protocol. Peak infusion 33.7 mCi of technetium 99m sestamibi was injected stress images were obtained stress and rest images were reconstructed and compared in the short axis vertical long and horizontal long axis. Gated images were also obtained pre- Perfusion SPECT analysis: Review of the stress images demonstrate normal uptake of tracer noted in all areas of the myocardium. The resting images similarly demonstrate normal uptake of tracer noted in all areas of the myocardium. No reversibility is noted suggest ischemia no previous infarct is noted. Gated SPECT analysis. The gated ejection fraction is 75%. Conclusion: Normal pharmacologic myocardial perfusion stress test. Preserved ejection fraction.
[2018-01-21] MEDS: traMADol 50 MG Tablet PO (10:33)
[2018-01-21] MEDS: Famotidine 20 MG Tablet PO (10:34)
--- NOTE | 2018-01-21 10:34 | STRESSREP_ITS ---
Stress Test Report Pharmacologic myocardial perfusion stress test 82-year-old lady with a history of chest pain. Stress protocol: Resting EKG demonstrates sinus bradycardia with a rate of 54 bpm normal intervals and noted resting blood pressure is 136/78 mmHg. 0.4 mg of regadenoson was infused per usual protocol followed by rapid intravenous saline flush injection continuous EKG monitoring was performed. The maximum heart rate attained was 75 bpm which was 53% maximum predicted heart rate the maximum workload attained was 1 metabolic equivalent. At rest there were no ST or T- wave changes noted to suggest abnormal flow reserve at peak infusion no ST or T- wave changes were noted to suggest abnormal flow reserve. Myocardial perfusion protocol. 11.3 mCi of technetium 99m sestamibi was injected at rest. 0.4 mg regadenoson was infused per usual protocol. Peak infusion 33.7 mCi of technetium 99m sestamibi was injected stress images were obtained stress and rest images were reconstructed and compared in the short axis vertical long and horizontal long axis. Gated images were also obtained pre- Perfusion SPECT analysis: Review of the stress images demonstrate normal uptake of tracer noted in all areas of the myocardium. The resting images similarly demonstrate normal uptake of tracer noted in all areas of the myocardium. No reversibility is noted suggest ischemia no previous infarct is noted. Gated SPECT analysis. The gated ejection fraction is 75%. Conclusion: Normal pharmacologic myocardial perfusion stress test. Preserved ejection fraction.
[2018-01-21] MEDS: Multivitamins,Ther W-Minerals Tablet 1 TABLET PO (10:37)
--- NOTE | 2018-01-21 16:38 | CASEMGMT ---
Social Work Pt to be d/c today and transferred to TCU. Spoke with Lina and bed is available and in auth. obtained. Met with pt and in room and informed that pt will be transferred to TCU today and they are agreeable to d/c plan. Green sheet placed on chart for pt to be d/c today. Plan: TCU EDD [facility]
--- NOTE | 2018-01-21 17:04 | PCM.TXEXTCAR ---
- Diet 01/21/18 12:00 Diet: Regular Diet Is pt able to select menu?: Yes - Routine Orders/Code Status Suppository Type: Dulcolax 10mg Suppository Frequency: Daily PRN Routine Lab Work: CBC, BMP Code Status: Full Code - Therapies Physical Therapy: Eval and Treat Occupational Therapy: Eval and Treat - Problem/Diagnosis (1) HTN (hypertension) Status: Chronic Current Visit: No (2) Hypothyroidism Status: Chronic Current Visit: No (3) History of breast cancer Status: Chronic Comment: R Breast CA s/p lumpectomy and radiation. Current Visit: No (4) Intractable back pain Status: Acute Current Visit: No (5) Intractable rib pain Status: Acute Current Visit: No - Allergies/Procedures Done in Hospital Allergies/Adverse Reactions: Allergies iron Allergy (Verified 01/18/18 08:47) Unknown pentazocine [From [facility]] Allergy (Verified 01/18/18 08:47) Other scopolamine Allergy (Verified 01/18/18 08:47) Other Procedures: Stress Test - Type of Care/Length of Stay Estimated LOS: Convalescent Care Less Than 30 days Type of Care Needed: Skilled Rehab Potential: Fair Prognosis: Fair - Additional Orders/Day of Discharge Day of Discharge: 01/21/18 - Dietary and Speech Recommendations Dietitian Recommendations/Changes: Suggest advance diet as medically able & as pt able to tolerate to cardiac, no added salt. - Follow Up Care Primary Care Physician: Pita Watkins,Out of [NON-STAFF] - Please follow up with your Primary Care Physician in: 2 weeks
--- NOTE | 2018-01-21 17:06 | PCM.DC.SUM ---
Discharge Date and Diagnosis - Problem List Patient Problems: Active and Suspected Problems Chest pain (Acute) Date of Admission: 01/18/18 Date of Discharge: 01/21/18 - Primary Discharge Diagnosis Active and Suspected Problems Chest pain (Acute) - musculoskeletal Intractable right lumbar back pain Right rib pain Opiate induced nausea Debility with fall Hx of SVT HTN HLD Hypothyroidism Neuropathy Hx Breast CA Hx Colitis Vit D deficiency Chronic normocytic anemia CKD III - Secondary Discharge Diagnosis Chronic Problems HTN (hypertension) (Chronic) Hypothyroidism (Chronic) Neuropathy (Chronic) History of breast cancer (Chronic) R Breast CA s/p lumpectomy and radiation. Hospital Course and Treatment Imaging Results: Stres test: Conclusion: Normal pharmacologic myocardial perfusion stress test. Preserved RAD/Lumbar Spine 2 or 3 Views IMPRESSION: No fracture or dislocation in the lumbar spine. Stable moderate degenerative changes. NM/Lung Scan Vent/Perf IMPRESSION: Normal 99m Tc MAA pulmonary perfusion Tc DTPA aerosol ventilation imaging survey, according to revised PIOPED interpretive criteria. Operations: None Procedures: Stress test Summary of Care Provided: Physical exam on day of discharge: General: Resting comfortably NAD Psych: A/Ox3 normal affect HEENT: PEARRLA AT NC Neck: Supple NT CV: RRR no m/t/r/g/h Resp: CTA Abd: [id number] Soft NT no guarding or rigidity Ext: DP2+= no edema Skin: W/D normal turgor Lymph/Heme: No active bleeding or adenopathy Neuro: CN2-12 intact Hospital course: The patient is a 82 year old F with a hx of HTN, hypothyroidism, neuropathy, Breast cancer in remission s/p radiaton and lumpectomy, who presented to the ER with chest pain, nausea, intractable back pain, rib pain. She had fallen on January 12 and was briefly admitted for right seventh rib fracture. Pelvic and SI, and lumbar spine X rays were unremarkable She had negative troponin, negative EKG, negative CXR. She was admitted for chest pain rule out. She had a hx of SVT and was placed on atenolol at night for this. She underwent troponins, EKGs, cardiac monitoring, and a stress test. Her cardiac workup was negative. D dimer was elevated so a VQ scan was done as she has some underlying renal dysfunction. This was negative. She had also had a doppler of her LE as an outaptient that was negative for DVTs. Her pain was felt to be 2/2 her fall and subsequent injuries. . She had some nausea with oxycodone and was transitioned to tramadol. She worked with PTOT and was determined to have further skilled needs. Arrangements were made for her to go to TCU. She was discharged to TCU in stable condition. Please follow up with your PCP after DC from TCU. This patient was seen by Dion Josue PA-C under the supervision of Doctor Robbins. [] Home Medications: Medications to take at Discharge Aspirin [Aspirin, Baby] 81 mg PO DAILY@0800 01/18/18 Azelastine HCl [Astelin] 2 spray NASAL BID PRN 01/18/18 Biotin 1 mg PO DAILY 01/18/18 Budesonide [Entocort EC] 9 mg PO DAILY 01/18/18 Cholecalciferol (Vitamin D3) [Vitamin D3] 2,000 unit PO DAILY 01/18/18 Hydrochlorothiazide [Hctz] 25 mg PO DAILY 01/18/18 Lactobacillus Acidophilus [Acidophilus Lactobacilli] 1 each PO DAILY 01/18/18 Levothyroxine [Synthroid] 88 mcg PO DAILY 01/18/18 Multivitamins,Ther W-Minerals [Multivitamin With Minerals] 1 tablet PO DAILY 01/18/18 Ubidecarenone [Co Q-10] 75 mg PO DAILY 01/18/18 Valsartan [Diovan] 80 mg PO DAILY 01/18/18 Acetaminophen [Tylenol] 1,000 mg PO Q8 tablet 01/21/18 Atenolol [Tenormin (beta cecilia)] 25 mg PO QHS tablet 01/21/18 Ensure Enlive 120 ml PO 4X/DAY liquid 01/21/18 traMADol [Ultram] 100 mg PO Q6H PRN PRN 3 Days #24 tab 01/21/18 Following Prescrptions Were Given to Patient: traMADol [Ultram] 100 mg PO Q6H PRN PRN 3 Days #24 tab PRN Reason: Mod-Severe Pain (4-10/10) Primary Care Physician: Pita Doctor,Out of [NON-STAFF] - Please follow up with your Primary Care Physician in: 2 weeks Medical Necessity - Tobacco Use Smoking Status: Former smoker Meaningful Use Info Meaningful Use Diagnoses (Choose all that apply): None applicable
--- NOTE | 2018-01-21 17:21 | DS.PCM_ITS ---
Discharge Date and Diagnosis - Problem List Patient Problems: Active and Suspected Problems Chest pain (Acute) Date of Admission: 01/18/18 Date of Discharge: 01/21/18 - Primary Discharge Diagnosis Active and Suspected Problems Chest pain (Acute) - musculoskeletal Intractable right lumbar back pain Right rib pain Opiate induced nausea Debility with fall Hx of SVT HTN HLD Hypothyroidism Neuropathy Hx Breast CA Hx Colitis Vit D deficiency Chronic normocytic anemia CKD III - Secondary Discharge Diagnosis Chronic Problems HTN (hypertension) (Chronic) Hypothyroidism (Chronic) Neuropathy (Chronic) History of breast cancer (Chronic) R Breast CA s/p lumpectomy and radiation. Hospital Course and Treatment Imaging Results: Stres test: Conclusion: Normal pharmacologic myocardial perfusion stress test. Preserved RAD/Lumbar Spine 2 or 3 Views IMPRESSION: No fracture or dislocation in the lumbar spine. Stable moderate degenerative changes. NM/Lung Scan Vent/Perf IMPRESSION: Normal 99m Tc MAA pulmonary perfusion Tc DTPA aerosol ventilation imaging survey, according to revised PIOPED interpretive criteria. Operations: None Procedures: Stress test Summary of Care Provided: Physical exam on day of discharge: General: Resting comfortably NAD Psych: A/Ox3 normal affect HEENT: PEARRLA AT NC Neck: Supple NT CV: RRR no m/t/r/g/h Resp: CTA Abd: [id number] Soft NT no guarding or rigidity Ext: DP2+= no edema Skin: W/D normal turgor Lymph/Heme: No active bleeding or adenopathy Neuro: CN2-12 intact Hospital course: The patient is a 82 year old F with a hx of HTN, hypothyroidism, neuropathy, Breast cancer in remission s/p radiaton and lumpectomy, who presented to the ER with chest pain, nausea, intractable back pain, rib pain. She had fallen on January 12 and was briefly admitted for right seventh rib fracture. Pelvic and SI, and lumbar spine X rays were unremarkable She had negative troponin, negative EKG, negative CXR. She was admitted for chest pain rule out. She had a hx of SVT and was placed on atenolol at night for this. She underwent troponins , EKGs, cardiac monitoring, and a stress test. Her cardiac workup was negative. D dimer was elevated so a VQ scan was done as she has some underlying renal dysfunction. This was negative. She had also had a doppler of her LE as an outaptient that was negative for DVTs. Her pain was felt to be 2/2 her fall and subsequent injuries. . She had some nausea with oxycodone and was transitioned to tramadol. She worked with PTOT and was determined to have further skilled needs. Arrangements were made for her to go to TCU. She was discharged to TCU in stable condition. Please follow up with your PCP after DC from TCU. This patient was seen by Dion Josue PA-C under the supervision of Doctor Robbins. [] Home Medications: Medications to take at Discharge Aspirin [Aspirin, Baby] 81 mg PO DAILY@0800 01/18/18 Azelastine HCl [Astelin] 2 spray NASAL BID PRN 01/18/18 Biotin 1 mg PO DAILY 01/18/18 Budesonide [Entocort EC] 9 mg PO DAILY 01/18/18 Cholecalciferol (Vitamin D3) [Vitamin D3] 2,000 unit PO DAILY 01/18/18 Hydrochlorothiazide [Hctz] 25 mg PO DAILY 01/18/18 Lactobacillus Acidophilus [Acidophilus Lactobacilli] 1 each PO DAILY 01/18/18 Levothyroxine [Synthroid] 88 mcg PO DAILY 01/18/18 Multivitamins,Ther W-Minerals [Multivitamin With Minerals] 1 tablet PO DAILY 01/02 Ubidecarenone [Co Q-10] 75 mg PO DAILY 01/18/18 Valsartan [Diovan] 80 mg PO DAILY 01/18/18 Acetaminophen [Tylenol] 1,000 mg PO Q8 tablet 01/21/18 Atenolol [Tenormin (beta cecilia)] 25 mg PO QHS tablet 01/21/18 Ensure Enlive 120 ml PO 4X/DAY liquid 01/21/18 traMADol [Ultram] 100 mg PO Q6H PRN PRN 3 Days #24 tab 01/21/18 Following Prescrptions Were Given to Patient: traMADol [Ultram] 100 mg PO Q6H PRN PRN 3 Days #24 tab PRN Reason: Mod-Severe Pain (4-10/10) Primary Care Physician: Pita Doctor,Out of [NON-STAFF] - Please follow up with your Primary Care Physician in: 2 weeks Medical Necessity - Tobacco Use Smoking Status: Former smoker Meaningful Use Info Meaningful Use Diagnoses (Choose all that apply): None applicable
== END 2018-01-21 17:05 | disposition skilled nursing facility (03) ==
LOC: ED 09:22 → PCU 11:53
PROVIDERS: Nurse Practitioner Family; Admitting Provider Internal Medicine; Emergency Provider Emergency Medicine; Visit Provider Internal Medicine
DX: R07.89 Other chest pain (principal); I47.1 Supraventricular tachycardia; R11.0 Nausea; E78.5 Hyperlipidemia, unspecified; M54.5 Low back pain; E55.9 Vitamin D deficiency, unspecified; I12.9 Hypertensive chronic kidney disease with stage 1 through stage 4 chronic kidney disease, or unspecified chronic kidney disease; N18.3 Chronic kidney disease, stage 3 (moderate); D64.9 Anemia, unspecified; E03.9 Hypothyroidism, unspecified; G62.9 Polyneuropathy, unspecified; S22.31XD Fracture of one rib, right side, subsequent encounter for fracture with routine healing; W10.9XXD Fall (on) (from) unspecified stairs and steps, subsequent encounter; K59.00 Constipation, unspecified; Z85.3 Personal history of malignant neoplasm of breast; Z87.891 Personal history of nicotine dependence; Z92.3 Personal history of irradiation; Z79.899 Other long term (current) drug therapy; Z79.82 Long term (current) use of aspirin
CPT/HCPCS: 36415; 71045; 72100; 78452; 78582; 80048; 80061; 83735; 84443; 84484; 85025; 85027; 85379; 85610; 85730; 93005; 93017; 96372; 96374; 96375; 96376; 97110; 97116; 97162; 97166; 97530; 97535; 97802; 99218; 99284; A9500; A9540; A9567; J7030; A4216; G0378; J2405; J2785

== ENCOUNTER 2018-01-21 18:39 | Inpatient (IN) | payer OTHER, MEDICARE, SELFPAY ==
--- NOTE | 2018-01-21 18:55 | PCM.HP.STD ---
Problem List (1) Low back pain Status: Acute (2) Right rib fracture Status: Acute (3) Chest pain Status: Acute (4) HTN (hypertension) Status: Chronic Qualifiers: (5) History of breast cancer Status: Chronic Comment: R Breast CA s/p lumpectomy and radiation. (6) Hypothyroidism Status: Chronic Qualifiers: (7) Neuropathy Status: Acute (8) SVT (supraventricular tachycardia) Status: Acute (9) Hyperlipidemia Status: Chronic (10) Microscopic colitis Status: Chronic (11) Vitamin D deficiency Status: Chronic (12) Allergic rhinitis Status: Chronic History of Present Illness Date of Admission: 01/21/18 Chief Complaint: Here for rehabilitation, strengthening, prior to discharge home with spouse. The patient is a 82 year old Female with below past medical history presented to [facility] Emergency Department 01/18/2018 with chest pain. 01/18/2018 Chest X-ray shows hyperinflation, atelectasis/early infiltrate left lower lobe, blunting costophrenic angle, left worse than right. Chest pain 7AM. Constant dull ache, 9 out of 10. Worse with breathing. Nausea, no vomiting. Right broken ribs, fell 6 days ago. EKG sinus rhythm, non-specific changes. WBC 4.0, Hemoglobin 11.1, Hematocrit 37.8. BUN 21, CR 1.15, Troponin negative. Aspirin, Morphine, Zofran given. 01/18/2018 Admit to Hospital. Doppler of legs negative for DVT at Dr. Capellan(PCP)'s office. Cardiac enzymes for chest pain. Zofran PRN nausea. Patient stopped gabapentin because not helpful. Tylenol, Ultram for pain. Check D-dimer to evaluate for DVT/PE. 01/18/2018 X-ray of lumbar spine negative for fracture, stable moderate degenerative changes. 01/19/2018 Ventilation Perfusion scan normal, negative for pulmonary embolism. 01/19/2018 SVT with ambulation, Tramadol helpful. Excessive nausea with Oxycodone. 01/20/2018 Cardiac enzymes negative, pain thought musculoskeletal. 01/21/2018 Nuclear stress test negative. 01/21/2018 Admit to TCU for rehabilitation, strengthening, prior to discharge home with spouse. Past Medical History Past Medical History (Chronic Problems): Chronic Problems HTN (hypertension) (Chronic) Hypothyroidism (Chronic) History of breast cancer (Chronic) R Breast CA s/p lumpectomy and radiation. Hyperlipidemia (Chronic) Microscopic colitis (Chronic) Vitamin D deficiency (Chronic) Allergic rhinitis (Chronic) Allergies iron Allergy (Verified 01/18/18 08:47) Unknown pentazocine [From Talwin] Allergy (Verified 01/18/18 08:47) Other scopolamine Allergy (Verified 01/18/18 08:47) Other Home Medications: Ambulatory Orders Medication Instructions Recorded Aspirin [Aspirin, Baby] 81 mg PO DAILY@0800 01/18/18 Azelastine HCl [Astelin] 2 spray NASAL BID PRN 01/18/18 Biotin 1 mg PO DAILY 01/18/18 Budesonide [Entocort EC] 9 mg PO DAILY 01/18/18 Cholecalciferol (Vitamin D3) 2,000 unit PO DAILY 01/18/18 [Vitamin D3] Hydrochlorothiazide [Hctz] 25 mg PO DAILY 01/18/18 Lactobacillus Acidophilus 1 each PO DAILY 01/18/18 [Acidophilus Lactobacilli] Levothyroxine [Synthroid] 88 mcg PO DAILY 01/18/18 Multivitamins,Ther W-Minerals 1 tablet PO DAILY 01/18/18 [Multivitamin With Minerals] Ubidecarenone [Co Q-10] 75 mg PO DAILY 01/18/18 Valsartan [Diovan] 80 mg PO DAILY 01/18/18 Acetaminophen [Tylenol] 1,000 mg PO Q8 tablet 01/21/18 Atenolol [Tenormin (beta cecilia)] 25 mg PO QHS tablet 01/21/18 Ensure Enlive 120 ml PO 4X/DAY liquid 01/21/18 traMADol [Ultram] 100 mg PO Q6H PRN PRN 3 Days #24 01/21/18 tab Surgical History: appendectomy, hysterectomy, - - Right breast lumpectomy. 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 Lives: Spouse/ Significant Other Smoking Status: Former smoker Tobacco Use: Non-smoker Alcohol: None Drugs: None - *Family History Maternal History Items: Heart Disease, Hypertension Paternal History Items: Heart Disease, Hypertension Review of Systems Constitutional: Denies: Chills, Fever, Weight Change HEENT: Denies: Head Aches, Sinus Congestion, Sinus Drainage Cardiovascular: Denies: Chest Pain, Palpitations Respiratory: Denies: Cough, Shortness of breath at rest, Sputum production Gastrointestinal: Denies: Abdominal Pain, Nausea, Vomiting Genitourinary: Denies: Dysuria Musculoskeletal: Reports: Back Pain - Right lower.. Denies: Joint Pain, Joint Tenderness Skin: Denies: Rash, Wounds Neurological: Denies: Numbness, Tingling, Focal weakness Psychiatric: Denies: Anxiety, Depression, Homicidal Ideations, Suicidal Ideations Hematologic/ Lymphatic: Denies: Easy Bruising, Easy Bleeding VTE Information - Inpt Only VTE Present on Admission: No VTE Mechan Device Prophylaxis: Knee High ANGEL Hose VTE Pharm Prophylaxis ordered?: Yes Patient Problems: Active and Suspected Problems Low back pain (Acute) Right rib fracture (Acute) SVT (supraventricular tachycardia) (Acute) - Physical Exam General: Alert, Oriented x3, Cooperative HEENT: Atraumatic, PERRLA, EOMI, Normocephalic Neck: Supple, No JVD, Negative Carotid Bruits Lungs: Clear to auscultation, Normal air movement Cardiovascular: Regular rate, No murmurs Abdomen: Bowel Sounds Present, Soft, Non Tender Extremities: No edema, Capillary Refill Less than 3 Seconds Skin: No rashes, No breakdown Musculoskeletal: No Tenderness to Palpation of Joints or Extremities, - - Right lumbar back tenderness. Neurological: Cranial nerves II-XII grossly intact Psych/Mental Status: Normal Affect, Appropriate Assessment/Plan Active and Suspected Problems Low back pain (Acute) Right rib fracture (Acute) SVT (supraventricular tachycardia) (Acute) 82 year old female with below past medical history hospitalized for chest pain, ruled out for myocardial infarction, negative nuclear stress test, complicated by intractable right rib fracture pain, intractable right lumbar back pain, admitted to TCU for debility, here for rehabilitation, strengthening, prior to discharge home with spouse. Debility - PT/OT. Pain - Tylenol 1000MG Q8H, Tramadol 100MG Q6H PRN moderate to severe pain. Bowel - Miralax 17GM daily, Senna/colace 2 tablets BID, Dulcolax 10MG PO daily PRN, Mag citrate 300ML PO x 1 dose. Pneumonia vaccination - Administer Prevnar 13 and/or Pneumovax 23 as necessary. DVT prophylaxis - Lovenox 40MG SC daily. CV prophylaxis - Aspirin 81MG daily. Hypertension - Atenolol 25MG QHS, Valsartan 80MG daily, HCTZ 25MG daily. Allergic Rhinitis - Astelin 2 sprays BID PRN. Microscopic colitis - Entocort 9MG daily. Vitamin D deficiency - D3 2000IU daily. Nutrition - Ensure Enlive 120ML 4x/day, MVI daily. GI prophylaxis - Lactobacillus 1 tablet daily Hypothyroidism - Levothyroxine 88MCG daily. Low Back Pain - Medrol Dosepak, Diclofenac 25MG BID with food x 7 days, Baclofen 10MG QHS x 7 days.
--- NOTE | 2018-01-21 19:07 | HP.PCM_ITS ---
Problem List (1) Low back pain Status: Acute (2) Right rib fracture Status: Acute (3) Chest pain Status: Acute (4) HTN (hypertension) Status: Chronic Qualifiers: (5) History of breast cancer Status: Chronic Comment: R Breast CA s/p lumpectomy and radiation. (6) Hypothyroidism Status: Chronic Qualifiers: (7) Neuropathy Status: Acute (8) SVT (supraventricular tachycardia) Status: Acute (9) Hyperlipidemia Status: Chronic (10) Microscopic colitis Status: Chronic (11) Vitamin D deficiency Status: Chronic (12) Allergic rhinitis Status: Chronic History of Present Illness Date of Admission: 01/21/18 Chief Complaint: Here for rehabilitation, strengthening, prior to discharge home with spouse. The patient is a 82 year old Female with below past medical history presented to [facility] Emergency Department 01/18/2018 with chest pain. 01/18/2018 Chest X-ray shows hyperinflation, atelectasis/early infiltrate left lower lobe, blunting costophrenic angle, left worse than right. Chest pain 7AM. Constant dull ache, 9 out of 10. Worse with breathing. Nausea, no vomiting. Right broken ribs, fell 6 days ago. EKG sinus rhythm, non-specific changes. WBC 4.0, Hemoglobin 11.1, Hematocrit 37.8. BUN 21, CR 1.15, Troponin negative. Aspirin, Morphine, Zofran given. 01/18/2018 Admit to Hospital. Doppler of legs negative for DVT at Dr. Capellan(PCP)'s office. Cardiac enzymes for chest pain. Zofran PRN nausea. Patient stopped gabapentin because not helpful. Tylenol, Ultram for pain. Check D-dimer to evaluate for DVT/PE. 01/18/2018 X-ray of lumbar spine negative for fracture, stable moderate degenerative changes. 01/19/2018 Ventilation Perfusion scan normal, negative for pulmonary embolism. 01/19/2018 SVT with ambulation, Tramadol helpful. Excessive nausea with Oxycodone. 01/20/2018 Cardiac enzymes negative, pain thought musculoskeletal. 01/21/2018 Nuclear stress test negative. 01/21/2018 Admit to TCU for rehabilitation, strengthening, prior to discharge home with spouse. Past Medical History Past Medical History (Chronic Problems): Chronic Problems HTN (hypertension) (Chronic) Hypothyroidism (Chronic) History of breast cancer (Chronic) R Breast CA s/p lumpectomy and radiation. Hyperlipidemia (Chronic) Microscopic colitis (Chronic) Vitamin D deficiency (Chronic) Allergic rhinitis (Chronic) Allergies iron Allergy (Verified 01/18/18 08:47) Unknown pentazocine [From Talwin] Allergy (Verified 01/18/18 08:47) Other scopolamine Allergy (Verified 01/18/18 08:47) Other Home Medications: Ambulatory Orders Medication Instructions Recorded Aspirin [Aspirin, Baby] 81 mg PO DAILY@0800 01/18/18 Azelastine HCl [Astelin] 2 spray NASAL BID PRN 01/18/18 Biotin 1 mg PO DAILY 01/18/18 Budesonide [Entocort EC] 9 mg PO DAILY 01/18/18 Cholecalciferol (Vitamin D3) 2,000 unit PO DAILY 01/18/18 [Vitamin D3] Hydrochlorothiazide [Hctz] 25 mg PO DAILY 01/18/18 Lactobacillus Acidophilus 1 each PO DAILY 01/18/18 [Acidophilus Lactobacilli] Levothyroxine [Synthroid] 88 mcg PO DAILY 01/18/18 Multivitamins,Ther W-Minerals 1 tablet PO DAILY 01/18/18 [Multivitamin With Minerals] Ubidecarenone [Co Q-10] 75 mg PO DAILY 01/18/18 Valsartan [Diovan] 80 mg PO DAILY 01/18/18 Acetaminophen [Tylenol] 1,000 mg PO Q8 tablet 01/21/18 Atenolol [Tenormin (beta cecilia)] 25 mg PO QHS tablet 01/21/18 Ensure Enlive 120 ml PO 4X/DAY liquid 01/21/18 traMADol [Ultram] 100 mg PO Q6H PRN PRN 3 Days #24 01/21/18 tab Surgical History: appendectomy, hysterectomy, - - Right breast lumpectomy. 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 Lives: Spouse/ Significant Other Smoking Status: Former smoker Tobacco Use: Non-smoker Alcohol: None Drugs: None - *Family History Maternal History Items: Heart Disease, Hypertension Paternal History Items: Heart Disease, Hypertension Review of Systems Constitutional: Denies: Chills, Fever, Weight Change HEENT: Denies: Head Aches, Sinus Congestion, Sinus Drainage Cardiovascular: Denies: Chest Pain, Palpitations Respiratory: Denies: Cough, Shortness of breath at rest, Sputum production Gastrointestinal: Denies: Abdominal Pain, Nausea, Vomiting Genitourinary: Denies: Dysuria Musculoskeletal: Reports: Back Pain - Right lower.. Denies: Joint Pain, Joint Tenderness Skin: Denies: Rash, Wounds Neurological: Denies: Numbness, Tingling, Focal weakness Psychiatric: Denies: Anxiety, Depression, Homicidal Ideations, Suicidal Ideations Hematologic/ Lymphatic: Denies: Easy Bruising, Easy Bleeding VTE Information - Inpt Only VTE Present on Admission: No VTE Mechan Device Prophylaxis: Knee High ANGEL Hose VTE Pharm Prophylaxis ordered?: Yes Patient Problems: Active and Suspected Problems Low back pain (Acute) Right rib fracture (Acute) SVT (supraventricular tachycardia) (Acute) - Physical Exam General: Alert, Oriented x3, Cooperative HEENT: Atraumatic, PERRLA, EOMI, Normocephalic Neck: Supple, No JVD, Negative Carotid Bruits Lungs: Clear to auscultation, Normal air movement Cardiovascular: Regular rate, No murmurs Abdomen: Bowel Sounds Present, Soft, Non Tender Extremities: No edema, Capillary Refill Less than 3 Seconds Skin: No rashes, No breakdown Musculoskeletal: No Tenderness to Palpation of Joints or Extremities, - - Right lumbar back tenderness. Neurological: Cranial nerves II-XII grossly intact Psych/Mental Status: Normal Affect, Appropriate Assessment/Plan Active and Suspected Problems Low back pain (Acute) Right rib fracture (Acute) SVT (supraventricular tachycardia) (Acute) 82 year old female with below past medical history hospitalized for chest pain, ruled out for myocardial infarction, negative nuclear stress test, complicated by intractable right rib fracture pain, intractable right lumbar back pain, admitted to TCU for debility, here for rehabilitation, strengthening, prior to discharge home with spouse. * Debility - PT/OT. * Pain - Tylenol 1000MG Q8H, Tramadol 100MG Q6H PRN moderate to severe pain. * Bowel - Miralax 17GM daily, Senna/colace 2 tablets BID, Dulcolax 10MG PO daily PRN, Mag citrate 300ML PO x 1 dose. * Pneumonia vaccination - Administer Prevnar 13 and/or Pneumovax 23 as necessary. * DVT prophylaxis - Lovenox 40MG SC daily. * CV prophylaxis - Aspirin 81MG daily. * Hypertension - Atenolol 25MG QHS, Valsartan 80MG daily, HCTZ 25MG daily. * Allergic Rhinitis - Astelin 2 sprays BID PRN. * Microscopic colitis - Entocort 9MG daily. * Vitamin D deficiency - D3 2000IU daily. * Nutrition - Ensure Enlive 120ML 4x/day, MVI daily. * GI prophylaxis - Lactobacillus 1 tablet daily * Hypothyroidism - Levothyroxine 88MCG daily. * Low Back Pain - Medrol Dosepak, Diclofenac 25MG BID with food x 7 days, Baclofen 10MG QHS x 7 days.
[2018-01-21 19:48] VITALS: BP 131/68; PULSE 61; RESP 18; TEMP 36.6; O2SAT 96
[2018-01-21 19:50] VITALS: BMI 25.9
[2018-01-21 19:54] VITALS: BMI 26.0
[2018-01-21 20:12] VITALS: PULSE 61
[2018-01-21] MEDS: traMADol 50 MG Tablet 100 MG PO (22:01)
[2018-01-22] MEDS: Levothyroxine 88 MCG Tablet PO (06:58)
[2018-01-22] MEDS: hydroCHLOROthiazide 25 MG Tablet PO (06:58)
[2018-01-22] MEDS: Acetaminophen 500 MG Tablet 1000 MG PO ×3 (07:12→22:05)
[2018-01-22] MEDS: traMADol 50 MG Tablet 100 MG PO (07:16)
--- NOTE | 2018-01-22 07:55 | NURSING ---
Pt assisted to bathroom, nurse stayed in room and checked with patient frequently whether she was ready to be assisted to bed, and patient declined. Lee patient get up by herself, nurse went into bathroom and reminded patient that she needs to call for help. Patient walked back to bed, and started to lose her balance and fall backwards, nurse steadied her upright, and encouraged her to sit on the bed. Patient picked up her bathrobe and about 6 loose pills fell on the floor. Nurse asked where the pills came from, and patient stated, it was pills from the other department.
[2018-01-22] MEDS: Aspirin 81 MG TAB.CHEW PO (08:09)
--- NOTE | 2018-01-22 09:13 | RAD_ITS ---
STUDY: X-RAY - ABDOMEN/PELVIS REASON FOR EXAM: Female, 82 years old. Constipation TECHNIQUE: 4 AP views COMPARISON: None. FINDINGS: Normal visualized lung bases. Multiple air-fluid levels noted on the upright film and small bowel loops consistent with ileus. Retained stool is noted in the colon. There is no demonstrated free abdominal air. The visualized liver, spleen and kidneys are grossly normal in size and morphology. Normal soft tissue structures. There are diffuse degenerative changes of the visualized lumbar spine. RAD/Abd Inc Decub and/or Erect IMPRESSION: Moderate amount of retained stool likely causing small bowel ileus. No free air or acute abnormalities Electronically Signed: Zafar Edwards MD at 10:58 EDT , Service support ,
--- NOTE | 2018-01-22 09:26 | NURSING ---
Addendum entered by Nadja Mark 01/22/18 10:51: Pt updated on KUB results, agreeable to mag citrate. Original Note: Dr Grullon aware pt is refused medrol pack, mag citrate, Tenormin, and baclofen. N.O. entered to start medrol pack, pt did not receive dosage. Pt educated on Tenormin and baclofen, agreeable to take. Voltaren dosage changed, per pharmacy 25mg not available. KUB ordered to check for constipation. Will continue to monitor and asses.
[2018-01-22 09:53] LABS: Absolute Lymphocyte Count 1.43 X10^3/ul (0.83-4.51); Basophil# 0.03 X10^3/uL; Basophil% 0.6 % (0-1); Eosinophil# 0.13 X10^3/uL; Eosinophils% 2.5 % (0-5); Hematocrit 33.4 % (37-47); Hemoglobin 10.8 g/dl (12.0-15.0); Lymphocyte # 1.43 X10^3/ul (4.0); Lymphocyte % 27.9 % (19-41); Mean Corp Hgb Conc 32.3 g/gl (32-36); Mean Corpuscular Volume 102.1 fL (81-99); Mean Platelet Vol. 9.4 fl (6.2-12.0); Monocyte% 9.7 % (0-10); Neutrophil # 3.02 X10^3/uL (2.7-7.7); Neutrophil % 58.9 % (47-70); POSITIVE COUNT NO; POSITIVE DIFFERENTIAL NO; POSITIVE MORPHOLOGY NO; Platelet Count 241 K/mm3 (150-450); RBC Distribution Width CV 12.8 % (11.6-14.6); RBC Distribution Width SD 46.4 fl (35.1-43.9); Red Blood Count 3.27 M/mm3 (4.2-5.4); White Blood Count 5.1 K/mm3 (4.4-11.0)
[2018-01-22 10:09] LABS: Anion Gap 8 (5-15); BUN 27 mg/dL (7-18); Calcium,Total 8.7 mg/dL (8.5-10.1); Chloride 106 mmol/L (98-107); Creatinine, Serum 1.23 mg/dL (0.55-1.02); EST Glomerular Filtration Rate 45 mL/min (>60); Est Glom Filt Rate - Afr Amer 54 mL/min (>60); Estimated Creatinine Clearance 34.88 ml/min; Glucose 111 mg/dL (74-106); Potassium 4.2 mmol/L (3.5-5.1); Sodium Level 141 mmol/L (136-145)
[2018-01-22] MEDS: Magnesium Citrate 300 ML PO (11:10)
[2018-01-22] MEDS: Tuberculin,Purif.prot.deriv. 50 TU/ML Vial 5 ML ID (11:10)
[2018-01-22] MEDS: MethylPREDNISolone DosePak 4 MG BOX PO ×3 (11:10→22:04)
--- NOTE | 2018-01-22 12:54 | NURSING ---
DR. JACKMAN REVIEWED LABS.
[2018-01-22 16:00] VITALS: BP 157/77; PULSE 59; RESP 18; TEMP 36.4; O2SAT 93
[2018-01-22] MEDS: Senna/Docusate Sodium 1 Tablet 2 TABLET PO (16:50)
[2018-01-22] MEDS: Baclofen 10 MG Tablet PO (22:06)
[2018-01-23] MEDS: Aspirin 81 MG TAB.CHEW PO (08:49)
[2018-01-23] MEDS: MethylPREDNISolone DosePak 4 MG BOX PO ×4 (08:49→21:01)
[2018-01-23] MEDS: hydroCHLOROthiazide 25 MG Tablet PO (08:49)
[2018-01-23 10:00] VITALS: PULSE 62; RESP 16
[2018-01-23] MEDS: Acetaminophen 500 MG Tablet 1000 MG PO (13:43)
[2018-01-23 15:47] VITALS: BP 165/88; PULSE 60; RESP 18; TEMP 36.6; O2SAT 98
[2018-01-23] MEDS: Baclofen 10 MG Tablet PO (21:02)
[2018-01-24] MEDS: Senna/Docusate Sodium 1 Tablet 2 TABLET PO (06:40)
[2018-01-24] MEDS: Levothyroxine 88 MCG Tablet PO (06:40)
[2018-01-24] MEDS: hydroCHLOROthiazide 25 MG Tablet PO (06:41)
[2018-01-24] MEDS: MethylPREDNISolone DosePak 4 MG BOX PO ×4 (08:10→20:40)
[2018-01-24] MEDS: Aspirin 81 MG TAB.CHEW PO (08:10)
[2018-01-24] MEDS: Multivitamins,Ther W-Minerals Tablet 1 TABLET PO (08:10)
[2018-01-24] MEDS: traMADol 50 MG Tablet 100 MG PO (11:43)
--- NOTE | 2018-01-24 12:01 | PCM.PN.RX ---
<TaraSanford hector D - Last Filed: 01/24/18 12:01> Progress Note - Pharmacy Subjective: TCU Admission Objective: Allergies iron Allergy (Verified 01/18/18 08:47) Unknown pentazocine [From Audra] Allergy (Verified 01/18/18 08:47) Other scopolamine Allergy (Verified 01/18/18 08:47) Other Home Medications Medication Instructions Recorded Aspirin [Aspirin, Baby] 81 mg PO DAILY@0800 01/18/18 Azelastine HCl [Astelin] 2 spray NASAL BID PRN 01/18/18 Biotin 1 mg PO DAILY 01/18/18 Budesonide [Entocort EC] 9 mg PO DAILY 01/18/18 Cholecalciferol (Vitamin D3) 2,000 unit PO DAILY 01/18/18 [Vitamin D3] Hydrochlorothiazide [Hctz] 25 mg PO DAILY 01/18/18 Lactobacillus Acidophilus 1 each PO DAILY 01/18/18 [Acidophilus Lactobacilli] Levothyroxine [Synthroid] 88 mcg PO DAILY 01/18/18 Multivitamins,Ther W-Minerals 1 tablet PO DAILY 01/18/18 [Multivitamin With Minerals] Ubidecarenone [Co Q-10] 75 mg PO DAILY 01/18/18 Valsartan [Diovan] 80 mg PO DAILY 01/18/18 Acetaminophen [Tylenol] 1,000 mg PO Q8 tablet 01/21/18 Atenolol [Tenormin (beta cecilia)] 25 mg PO QHS tablet 01/21/18 Ensure Enlive 120 ml PO 4X/DAY liquid 01/21/18 traMADol [Ultram] 100 mg PO Q6H PRN PRN 3 Days #24 01/21/18 tab Current Medications Generic Name Dose Route Start Last Admin Trade Name Freq PRN Reason Stop Dose Admin Acetaminophen 1,000 mg 01/21/18 22:00 01/24/18 06:41 Tylenol PO Not Given Q8 DINORAH Aspirin 81 mg 01/22/18 08:00 01/24/18 08:10 Aspirin, Baby PO 81 mg DAILY@0800 DINORAH Administration Azelastine HCl 2 spray 01/21/18 18:48 Astelin NASAL BID PRN Dry Nasal Pasage Baclofen 10 mg 01/21/18 22:00 01/23/18 21:02 Lioresal PO 01/28/18 22:01 10 mg QHS [facility] Administration Bisacodyl 10 mg 01/21/18 19:21 Dulcolax PO DAILY PRN Constipation Budesonide 9 mg 01/22/18 06:00 01/24/18 06:37 Budesonide Ec PO Not Given DAILY [facility] Cholecalciferol 2,000 unit 01/22/18 06:00 01/24/18 06:41 Vitamin D PO 2,000 unit DAILY [facility] Administration Diclofenac Sodium 50 mg 01/22/18 10:00 01/24/18 08:10 Voltaren PO 01/29/18 10:01 50 mg BIDCM [facility] Administration Enoxaparin Sodium 40 mg 01/22/18 06:00 01/24/18 06:37 Lovenox SC Not Given DAILY@0600 [facility] Hydrochlorothiazide 25 mg 01/22/18 06:00 01/24/18 06:41 Hctz PO 25 mg DAILY [facility] Administration Lactobacillus Acidophilus 1 tablet 01/22/18 06:00 01/24/18 06:41 Acidophilus PO 1 tablet DAILY [facility] Administration Levothyroxine Sodium 88 mcg 01/22/18 06:00 01/24/18 06:40 Synthroid PO 88 mcg DAILY [facility] Administration Methylprednisolone 4 mg 01/22/18 12:00 01/24/18 11:40 Medrol Dosepak PO 01/27/18 04:59 4 mg 0800,1200,1700,2200 [facility] Administration Taper Multivitamins/Minerals 1 tablet 01/22/18 08:00 01/24/18 08:10 Multivitamin With Minerals PO 1 tablet DAILYCM [facility] Administration Nutritional Formula (Lactose Free) 120 ml 01/21/18 22:00 01/24/18 11:40 Ensure Enlive PO 120 ml 4X/DAY [facility] Administration Polyethylene Glycol 17 gm 01/22/18 06:00 01/24/18 06:37 Miralax PO Not Given DAILY [facility] Senna/Docusate Sodium 2 tablet 01/22/18 06:00 01/24/18 06:40 Senokot-S, Arabella-Colace PO 2 tablet BID [facility] Administration Tramadol HCl 100 mg 01/21/18 18:48 01/24/18 11:43 Ultram PO 100 mg Q6H PRN PRN Administration MOD-SEVERE PAIN (4-10/10) Tuberculin PPD 5 tu 01/29/18 10:00 Tubersol, Aplisol, Ppd ID 01/29/18 10:01 X1 ONE Valsartan 80 mg 01/22/18 06:00 01/24/18 06:42 Diovan PO 80 mg DAILY DINORAH Administration Problem List Low back pain (Acute) Right rib fracture (Acute) SVT (supraventricular tachycardia) (Acute) Hyperlipidemia (Chronic) Microscopic colitis (Chronic) Vitamin D deficiency (Chronic) Allergic rhinitis (Chronic) Vital Signs Temp Pulse Resp BP Pulse Ox 97.8 F 60 18 165/88 H 98 01/23/18 15:47 01/23/18 15:47 01/23/18 15:47 01/23/18 15:47 01/23/18 15:47 Oxygen Delivery Method Room Air Weight: 75.296 kg Body Mass Index (BMI) 25.9 Sodium 141 mmol/L (136-145) 01/22/18 09:34 Potassium 4.2 mmol/L (3.5-5.1) 01/22/18 09:34 Chloride 106 mmol/L (98-107) 01/22/18 09:34 Carbon Dioxide 27.0 mmol/L (21.0-32.0) 01/22/18 09:34 Anion Gap 8 (5-15) 01/22/18 09:34 BUN 27 mg/dL (7-18) H 01/22/18 09:34 Creatinine 1.23 mg/dL (0.55-1.02) H 01/22/18 09:34 Est GFR (MDRD) Af Amer 54 mL/min (>60) L 01/22/18 09:34 Est GFR (MDRD) Non-Af 45 mL/min (>60) L 01/22/18 09:34 BUN/Creatinine Ratio 22.0 RATIO (10-20) H 01/22/18 09:34 Glucose 111 mg/dL (74-106) H 01/22/18 09:34 Assessment/Plan: 1) Pain APAP scheduled, baclofen at HS until 01/28, tramadol for moderate-severe pain, methylprednisolone dose pack, diclofenac. Continue to monitor daily pain scores, prn medication use. 2) HTN/CV PPx Valsartan, HCTZ, ASA. Avg BP within goal range but has trended up, K wnl, BUN/SCr at baseline. Continue to monitor BP/HR, renal function, electrolytes. 3) GI Budesonide, lactobacillus. Continue to monitor s/s GI distress. 4) Nutrition Multivitamin, D, Ensure. Continue to monitor clinically. 5) DVT PPx Enoxaparin daily. Continue to monitor s/s bleeding/clot. 6) Hypothyroidism Levothyroxine daily. Continue to monitor s/s hyper/hypothyroidism. 7) Allergic Rhinitis Azelastine nasal spray prn. Continue to monitor prn medication use, for allergy symptoms. Psychotropic Medications: None Unnecessary Medications: None Bowel Regimen: 8) Senna/s, PEG, prn bisacodyl. Continue to monitor prn medication use, for constipation/diarrhea. Date of Note:: 01/24/18 - Provider Comments Provider responsibility: Provider responsible to enter orders to implement recommendations <Miki Grullon Chi - Last Filed: 01/24/18 17:49> Progress Note - Pharmacy Subjective: [] Objective: Allergies iron Allergy (Verified 01/18/18 08:47) Unknown pentazocine [From Audra] Allergy (Verified 01/18/18 08:47) Other scopolamine Allergy (Verified 01/18/18 08:47) Other Home Medications Medication Instructions Recorded Aspirin [Aspirin, Baby] 81 mg PO DAILY@0800 01/18/18 Azelastine HCl [Astelin] 2 spray NASAL BID PRN 01/18/18 Biotin 1 mg PO DAILY 01/18/18 Budesonide [Entocort EC] 9 mg PO DAILY 01/18/18 Cholecalciferol (Vitamin D3) 2,000 unit PO DAILY 01/18/18 [Vitamin D3] Hydrochlorothiazide [Hctz] 25 mg PO DAILY 01/18/18 Lactobacillus Acidophilus 1 each PO DAILY 01/18/18 [Acidophilus Lactobacilli] Levothyroxine [Synthroid] 88 mcg PO DAILY 01/18/18 Multivitamins,Ther W-Minerals 1 tablet PO DAILY 01/18/18 [Multivitamin With Minerals] Ubidecarenone [Co Q-10] 75 mg PO DAILY 01/18/18 Valsartan [Diovan] 80 mg PO DAILY 01/18/18 Acetaminophen [Tylenol] 1,000 mg PO Q8 tablet 01/21/18 Atenolol [Tenormin (beta cecilia)] 25 mg PO QHS tablet 01/21/18 Ensure Enlive 120 ml PO 4X/DAY liquid 01/21/18 traMADol [Ultram] 100 mg PO Q6H PRN PRN 3 Days #24 01/21/18 tab Current Medications Generic Name Dose Route Start Last Admin Trade Name Octavio PRN Reason Stop Dose Admin Acetaminophen 1,000 mg 01/24/18 14:40 Tylenol PO Q8H PRN PRN PAIN Aspirin 81 mg 01/22/18 08:00 01/24/18 08:10 Aspirin, Baby PO 81 mg DAILY@0800 [facility] Administration Azelastine HCl 2 spray 01/21/18 18:48 Astelin NASAL BID PRN Dry Nasal Pasage Baclofen 10 mg 01/21/18 22:00 01/23/18 21:02 Lioresal PO 01/28/18 22:01 10 mg QHS [facility] Administration Bisacodyl 10 mg 01/21/18 19:21 Dulcolax PO DAILY PRN Constipation Budesonide 9 mg 01/22/18 06:00 01/24/18 06:37 Budesonide Ec PO Not Given DAILY [facility] Cholecalciferol 2,000 unit 01/22/18 06:00 01/24/18 06:41 Vitamin D PO 2,000 unit DAILY [facility] Administration Diclofenac Sodium 50 mg 01/22/18 10:00 01/24/18 17:11 Voltaren PO 01/29/18 10:01 50 mg BIDCM [facility] Administration Enoxaparin Sodium 40 mg 01/22/18 06:00 01/24/18 06:37 Lovenox SC Not Given DAILY@0600 [facility] Hydrochlorothiazide 25 mg 01/22/18 06:00 01/24/18 06:41 Hctz PO 25 mg DAILY [facility] Administration Lactobacillus Acidophilus 1 tablet 01/22/18 06:00 01/24/18 06:41 Acidophilus PO 1 tablet DAILY [facility] Administration Levothyroxine Sodium 88 mcg 01/22/18 06:00 01/24/18 06:40 Synthroid PO 88 mcg DAILY [facility] Administration Methylprednisolone 4 mg 01/22/18 12:00 01/24/18 17:09 Medrol Dosepak PO 01/27/18 04:59 4 mg 0800,1200,1700,2200 [facility] Administration Taper Multivitamins/Minerals 1 tablet 01/22/18 08:00 01/24/18 08:10 Multivitamin With Minerals PO 1 tablet DAILYCM DINORAH Administration Nutritional Formula (Lactose Free) 120 ml 01/21/18 22:00 01/24/18 17:13 Ensure Enlive PO 120 ml 4X/DAY DINORAH Administration Polyethylene Glycol 17 gm 01/22/18 06:00 01/24/18 06:37 Miralax PO Not Given DAILY DINORAH Senna/Docusate Sodium 2 tablet 01/22/18 06:00 01/24/18 17:11 Senokot-S, Arabella-Colace PO Not Given BID DINORAH Tramadol HCl 100 mg 01/21/18 18:48 01/24/18 11:43 Ultram PO 100 mg Q6H PRN PRN Administration MOD-SEVERE PAIN (-07/27) Tuberculin PPD 5 tu 01/29/18 10:00 Tubersol, Aplisol, Ppd ID 01/29/18 10:01 X1 ONE Valsartan 160 mg 01/25/18 06:00 Diovan PO DAILY [facility] Problem List Low back pain (Acute) Right rib fracture (Acute) SVT (supraventricular tachycardia) (Acute) Hyperlipidemia (Chronic) Microscopic colitis (Chronic) Vitamin D deficiency (Chronic) Allergic rhinitis (Chronic) Vital Signs Temp Pulse Resp BP Pulse Ox 97.8 F 63 18 208/90 H 94 01/24/18 15:53 01/24/18 15:53 01/24/18 15:53 01/24/18 15:53 01/24/18 15:53 Oxygen Delivery Method Room Air Weight: 75.296 kg Body Mass Index (BMI) 25.9 Sodium 141 mmol/L (136-145) 01/22/18 09:34 Potassium 4.2 mmol/L (3.5-5.1) 01/22/18 09:34 Chloride 106 mmol/L (98-107) 01/22/18 09:34 Carbon Dioxide 27.0 mmol/L (21.0-32.0) 01/22/18 09:34 Anion Gap 8 (5-15) 01/22/18 09:34 BUN 27 mg/dL (7-18) H 01/22/18 09:34 Creatinine 1.23 mg/dL (0.55-1.02) H 01/22/18 09:34 Est GFR (MDRD) Af Amer 54 mL/min (>60) L 01/22/18 09:34 Est GFR (MDRD) Non-Af 45 mL/min (>60) L 01/22/18 09:34 BUN/Creatinine Ratio 22.0 RATIO (10-20) H 01/22/18 09:34 Glucose 111 mg/dL (74-106) H 01/22/18 09:34 Assessment/Plan: Psychotropic Medications: Unnecessary Medications: Bowel Regimen: - Provider Comments Provider responsibility: Provider responsible to enter orders to implement recommendations Provider Comments to Recommendations by Pharmacy: Agree
--- NOTE | 2018-01-24 12:22 | PHA.CONS_ITS ---
<TaraSanford hector D - Last Filed: 01/24/18 12:01> Progress Note - Pharmacy Subjective: TCU Admission Objective: Allergies iron Allergy (Verified 01/18/18 08:47) Unknown pentazocine [From Audra] Allergy (Verified 01/18/18 08:47) Other scopolamine Allergy (Verified 01/18/18 08:47) Other Home Medications Medication Instructions Recorded Aspirin [Aspirin, Baby] 81 mg PO DAILY@0800 01/18/18 Azelastine HCl [Astelin] 2 spray NASAL BID PRN 01/18/18 Biotin 1 mg PO DAILY 01/18/18 Budesonide [Entocort EC] 9 mg PO DAILY 01/18/18 Cholecalciferol (Vitamin D3) 2,000 unit PO DAILY 01/18/18 [Vitamin D3] Hydrochlorothiazide [Hctz] 25 mg PO DAILY 01/18/18 Lactobacillus Acidophilus 1 each PO DAILY 01/18/18 [Acidophilus Lactobacilli] Levothyroxine [Synthroid] 88 mcg PO DAILY 01/18/18 Multivitamins,Ther W-Minerals 1 tablet PO DAILY 01/18/18 [Multivitamin With Minerals] Ubidecarenone [Co Q-10] 75 mg PO DAILY 01/18/18 Valsartan [Diovan] 80 mg PO DAILY 01/18/18 Acetaminophen [Tylenol] 1,000 mg PO Q8 tablet 01/21/18 Atenolol [Tenormin (beta cecilia)] 25 mg PO QHS tablet 01/21/18 Ensure Enlive 120 ml PO 4X/DAY liquid 01/21/18 traMADol [Ultram] 100 mg PO Q6H PRN PRN 3 Days #24 01/21/18 tab Current Medications Generic Name Dose Route Start Last Admin Trade Name Freq PRN Reason Stop Dose Admin Acetaminophen 1,000 mg 01/21/18 22:00 01/24/18 06:41 Tylenol PO Not Given Q8 DINORAH Aspirin 81 mg 01/22/18 08:00 01/24/18 08:10 Aspirin, Baby PO 81 mg DAILY@0800 DINORAH Administration Azelastine HCl 2 spray 01/21/18 18:48 Astelin NASAL BID PRN Dry Nasal Pasage Baclofen 10 mg 01/21/18 22:00 01/23/18 21:02 Lioresal PO 01/28/18 22:01 10 mg QHS [facility] Administration Bisacodyl 10 mg 01/21/18 19:21 Dulcolax PO DAILY PRN Constipation Budesonide 9 mg 01/22/18 06:00 01/24/18 06:37 Budesonide Ec PO Not Given DAILY [facility] Cholecalciferol 2,000 unit 01/22/18 06:00 01/24/18 06:41 Vitamin D PO 2,000 unit DAILY [facility] Administration Diclofenac Sodium 50 mg 01/22/18 10:00 01/24/18 08:10 Voltaren PO 01/29/18 10:01 50 mg BIDCM [facility] Administration Enoxaparin Sodium 40 mg 01/22/18 06:00 01/24/18 06:37 Lovenox SC Not Given DAILY@0600 [facility] Hydrochlorothiazide 25 mg 01/22/18 06:00 01/24/18 06:41 Hctz PO 25 mg DAILY [facility] Administration Lactobacillus Acidophilus 1 tablet 01/22/18 06:00 01/24/18 06:41 Acidophilus PO 1 tablet DAILY [facility] Administration Levothyroxine Sodium 88 mcg 01/22/18 06:00 01/24/18 06:40 Synthroid PO 88 mcg DAILY [facility] Administration Methylprednisolone 4 mg 01/22/18 12:00 01/24/18 11:40 Medrol Dosepak PO 01/27/18 04:59 4 mg 0800,1200,1700,2200 [facility] Administration Taper Multivitamins/Minerals 1 tablet 01/22/18 08:00 01/24/18 08:10 Multivitamin With Minerals PO 1 tablet DAILYCM [facility] Administration Nutritional Formula (Lactose Free) 120 ml 01/21/18 22:00 01/24/18 11:40 Ensure Enlive PO 120 ml 4X/DAY [facility] Administration Polyethylene Glycol 17 gm 01/22/18 06:00 01/24/18 06:37 Miralax PO Not Given DAILY [facility] Senna/Docusate Sodium 2 tablet 01/22/18 06:00 01/24/18 06:40 Senokot-S, Arabella-Colace PO 2 tablet BID [facility] Administration Tramadol HCl 100 mg 01/21/18 18:48 01/24/18 11:43 Ultram PO 100 mg Q6H PRN PRN Administration MOD-SEVERE PAIN (4-10/10) Tuberculin PPD 5 tu 01/29/18 10:00 Tubersol, Aplisol, Ppd ID 01/29/18 10:01 X1 ONE Valsartan 80 mg 01/22/18 06:00 01/24/18 06:42 Diovan PO 80 mg DAILY DINORAH Administration Problem List Low back pain (Acute) Right rib fracture (Acute) SVT (supraventricular tachycardia) (Acute) Hyperlipidemia (Chronic) Microscopic colitis (Chronic) Vitamin D deficiency (Chronic) Allergic rhinitis (Chronic) Vital Signs Temp Pulse Resp BP Pulse Ox 97.8 F 60 18 165/88 H 98 01/23/18 15:47 01/23/18 15:47 01/23/18 15:47 01/23/18 15:47 01/23/18 15:47 Oxygen Delivery Method Room Air Weight: 75.296 kg Body Mass Index (BMI) 25.9 Sodium 141 mmol/L (136-145) 01/22/18 09:34 Potassium 4.2 mmol/L (3.5-5.1) 01/22/18 09:34 Chloride 106 mmol/L (98-107) 01/22/18 09:34 Carbon Dioxide 27.0 mmol/L (21.0-32.0) 01/22/18 09:34 Anion Gap 8 (5-15) 01/22/18 09:34 BUN 27 mg/dL (7-18) H 01/22/18 09:34 Creatinine 1.23 mg/dL (0.55-1.02) H 01/22/18 09:34 Est GFR (MDRD) Af Amer 54 mL/min (>60) L 01/22/18 09:34 Est GFR (MDRD) Non-Af 45 mL/min (>60) L 01/22/18 09:34 BUN/Creatinine Ratio 22.0 RATIO (10-20) H 01/22/18 09:34 Glucose 111 mg/dL (74-106) H 01/22/18 09:34 Assessment/Plan: 1) Pain APAP scheduled, baclofen at HS until 01/28, tramadol for moderate-severe pain , methylprednisolone dose pack, diclofenac. Continue to monitor daily pain scores, prn medication use. 2) HTN/CV PPx Valsartan, HCTZ, ASA. Avg BP within goal range but has trended up, K wnl, BUN /SCr at baseline. Continue to monitor BP/HR, renal function, electrolytes. 3) GI Budesonide, lactobacillus. Continue to monitor s/s GI distress. 4) Nutrition Multivitamin, D, Ensure. Continue to monitor clinically. 5) DVT PPx Enoxaparin daily. Continue to monitor s/s bleeding/clot. 6) Hypothyroidism Levothyroxine daily. Continue to monitor s/s hyper/hypothyroidism. 7) Allergic Rhinitis Azelastine nasal spray prn. Continue to monitor prn medication use, for allergy symptoms. Psychotropic Medications: None Unnecessary Medications: None Bowel Regimen: 8) Senna/s, PEG, prn bisacodyl. Continue to monitor prn medication use, for constipation/diarrhea. Date of Note:: 01/24/18 - Provider Comments Provider responsibility: Provider responsible to enter orders to implement recommendations <Miki Grullon Chi - Last Filed: 01/24/18 17:49> Progress Note - Pharmacy Subjective: [] Objective: Allergies iron Allergy (Verified 01/18/18 08:47) Unknown pentazocine [From Audra] Allergy (Verified 01/18/18 08:47) Other scopolamine Allergy (Verified 01/18/18 08:47) Other Home Medications Medication Instructions Recorded Aspirin [Aspirin, Baby] 81 mg PO DAILY@0800 01/18/18 Azelastine HCl [Astelin] 2 spray NASAL BID PRN 01/18/18 Biotin 1 mg PO DAILY 01/18/18 Budesonide [Entocort EC] 9 mg PO DAILY 01/18/18 Cholecalciferol (Vitamin D3) 2,000 unit PO DAILY 01/18/18 [Vitamin D3] Hydrochlorothiazide [Hctz] 25 mg PO DAILY 01/18/18 Lactobacillus Acidophilus 1 each PO DAILY 01/18/18 [Acidophilus Lactobacilli] Levothyroxine [Synthroid] 88 mcg PO DAILY 01/18/18 Multivitamins,Ther W-Minerals 1 tablet PO DAILY 01/18/18 [Multivitamin With Minerals] Ubidecarenone [Co Q-10] 75 mg PO DAILY 01/18/18 Valsartan [Diovan] 80 mg PO DAILY 01/18/18 Acetaminophen [Tylenol] 1,000 mg PO Q8 tablet 01/21/18 Atenolol [Tenormin (beta cecilia)] 25 mg PO QHS tablet 01/21/18 Ensure Enlive 120 ml PO 4X/DAY liquid 01/21/18 traMADol [Ultram] 100 mg PO Q6H PRN PRN 3 Days #24 01/21/18 tab Current Medications Generic Name Dose Route Start Last Admin Trade Name Octavio PRN Reason Stop Dose Admin Acetaminophen 1,000 mg 01/24/18 14:40 Tylenol PO Q8H PRN PRN PAIN Aspirin 81 mg 01/22/18 08:00 01/24/18 08:10 Aspirin, Baby PO 81 mg DAILY@0800 [facility] Administration Azelastine HCl 2 spray 01/21/18 18:48 Astelin NASAL BID PRN Dry Nasal Pasage Baclofen 10 mg 01/21/18 22:00 01/23/18 21:02 Lioresal PO 01/28/18 22:01 10 mg QHS [facility] Administration Bisacodyl 10 mg 01/21/18 19:21 Dulcolax PO DAILY PRN Constipation Budesonide 9 mg 01/22/18 06:00 01/24/18 06:37 Budesonide Ec PO Not Given DAILY [facility] Cholecalciferol 2,000 unit 01/22/18 06:00 01/24/18 06:41 Vitamin D PO 2,000 unit DAILY [facility] Administration Diclofenac Sodium 50 mg 01/22/18 10:00 01/24/18 17:11 Voltaren PO 01/29/18 10:01 50 mg BIDCM [facility] Administration Enoxaparin Sodium 40 mg 01/22/18 06:00 01/24/18 06:37 Lovenox SC Not Given DAILY@0600 [facility] Hydrochlorothiazide 25 mg 01/22/18 06:00 01/24/18 06:41 Hctz PO 25 mg DAILY [facility] Administration Lactobacillus Acidophilus 1 tablet 01/22/18 06:00 01/24/18 06:41 Acidophilus PO 1 tablet DAILY [facility] Administration Levothyroxine Sodium 88 mcg 01/22/18 06:00 01/24/18 06:40 Synthroid PO 88 mcg DAILY [facility] Administration Methylprednisolone 4 mg 01/22/18 12:00 01/24/18 17:09 Medrol Dosepak PO 01/27/18 04:59 4 mg 0800,1200,1700,2200 [facility] Administration Taper Multivitamins/Minerals 1 tablet 01/22/18 08:00 01/24/18 08:10 Multivitamin With Minerals PO 1 tablet DAILYCM [facility] Administration Nutritional Formula (Lactose Free) 120 ml 01/21/18 22:00 01/24/18 17:13 Ensure Enlive PO 120 ml 4X/DAY [facility]IN[facility] Administration Polyethylene Glycol 17 gm 01/22/18 06:00 01/24/18 06:37 Miralax PO Not Given DAILY [facility] Senna/Docusate Sodium 2 tablet 01/22/18 06:00 01/24/18 17:11 Senokot-S, Arabella-Colace PO Not Given BID [facility]IN[facility] Tramadol HCl 100 mg 01/21/18 18:48 01/24/18 11:43 Ultram PO 100 mg Q6H PRN PRN Administration MOD-SEVERE PAIN (-07/27) Tuberculin PPD 5 tu 01/29/18 10:00 Tubersol, Aplisol, Ppd ID 01/29/18 10:01 X1 ONE Valsartan 160 mg 01/25/18 06:00 Diovan PO DAILY [facility] Problem List Low back pain (Acute) Right rib fracture (Acute) SVT (supraventricular tachycardia) (Acute) Hyperlipidemia (Chronic) Microscopic colitis (Chronic) Vitamin D deficiency (Chronic) Allergic rhinitis (Chronic) Vital Signs Temp Pulse Resp BP Pulse Ox 97.8 F 63 18 208/90 H 94 01/24/18 15:53 01/24/18 15:53 01/24/18 15:53 01/24/18 15:53 01/24/18 15:53 Oxygen Delivery Method Room Air Weight: 75.296 kg Body Mass Index (BMI) 25.9 Sodium 141 mmol/L (136-145) 01/22/18 09:34 Potassium 4.2 mmol/L (3.5-5.1) 01/22/18 09:34 Chloride 106 mmol/L (98-107) 01/22/18 09:34 Carbon Dioxide 27.0 mmol/L (21.0-32.0) 01/22/18 09:34 Anion Gap 8 (5-15) 01/22/18 09:34 BUN 27 mg/dL (7-18) H 01/22/18 09:34 Creatinine 1.23 mg/dL (0.55-1.02) H 01/22/18 09:34 Est GFR (MDRD) Af Amer 54 mL/min (>60) L 01/22/18 09:34 Est GFR (MDRD) Non-Af 45 mL/min (>60) L 01/22/18 09:34 BUN/Creatinine Ratio 22.0 RATIO (10-20) H 01/22/18 09:34 Glucose 111 mg/dL (74-106) H 01/22/18 09:34 Assessment/Plan: Psychotropic Medications: Unnecessary Medications: Bowel Regimen: - Provider Comments Provider responsibility: Provider responsible to enter orders to implement recommendations Provider Comments to Recommendations by Pharmacy: Agree
--- NOTE | 2018-01-24 15:51 | NURSING ---
Dr Grullon notified of BP 180/100 HR 63, New order to administer diovan 80mg x1 now and increase daily dose to 160mg.
[2018-01-24 15:53] VITALS: BP 208/90; PULSE 63; RESP 18; TEMP 36.6; O2SAT 94
[2018-01-24] MEDS: Baclofen 10 MG Tablet PO (20:41)
[2018-01-25] MEDS: Levothyroxine 88 MCG Tablet PO (06:21)
[2018-01-25] MEDS: Senna/Docusate Sodium 1 Tablet 2 TABLET PO (06:22)
[2018-01-25] MEDS: hydroCHLOROthiazide 25 MG Tablet PO (06:22)
[2018-01-25] MEDS: Aspirin 81 MG TAB.CHEW PO (08:12)
[2018-01-25] MEDS: MethylPREDNISolone DosePak 4 MG BOX PO ×3 (08:12→20:51)
--- NOTE | 2018-01-25 09:47 | CASEMGMT ---
Insurance Clinical information sent. Pending continued stay approval at this time. Auth#[id number] Geri PUGA, ELL TUTOR
[2018-01-25 15:35] VITALS: BP 188/95; PULSE 68; RESP 18; TEMP 36.6; O2SAT 95
--- NOTE | 2018-01-25 16:22 | CASEMGMT ---
Insurance Continued stay approved with next update due on 01/28/18. Auth#[id number] Geri PUGA, SPRING ASSEMBLER SUPERVISOR
[2018-01-25 16:53] VITALS: BP 171/99; PULSE 63
--- NOTE | 2018-01-25 17:59 | NURSING ---
Dr Grullon notified of elevated BP's tonight, new order to ^ jasvan.
[2018-01-25] MEDS: Baclofen 10 MG Tablet PO (20:51)
[2018-01-26] VITALS (7 sets, daily range): BP systolic 157–217; BP diastolic 71–97; PULSE 63–81; RESP 18; TEMP 36.2–36.5; O2SAT 93–98
[2018-01-26] MEDS: Senna/Docusate Sodium 1 Tablet 2 TABLET PO ×2 (06:35→15:22)
[2018-01-26] MEDS: hydroCHLOROthiazide 25 MG Tablet PO (06:36)
[2018-01-26] MEDS: Levothyroxine 88 MCG Tablet PO (06:36)
[2018-01-26] MEDS: MethylPREDNISolone DosePak 4 MG BOX PO ×2 (07:14→21:17)
[2018-01-26] MEDS: Aspirin 81 MG TAB.CHEW PO (07:15)
[2018-01-26] MEDS: Acetaminophen 500 MG Tablet 1000 MG PO ×2 (07:30→21:08)
--- NOTE | 2018-01-26 09:01 | CASEMGMT ---
Plan of care meeting held. Resident present as well as resident family. No discharge date set at this time. Resident to continue with further care and treatment on the Transitional Care Unit. Resident plans to discharge home with spouse at time of discharge. Resident does have an insurance update due on 01/28/18 and is aware that continued stay approval is not guaranteed. Support given. Will continue to follow. Geri PUGA, HAND STRAIGHTENER
[2018-01-26] MEDS: Glucerna Shake 120 ML LIQUID PO ×2 (11:19→21:18)
[2018-01-26] MEDS: cloNIDine HCl 0.1 MG Tablet PO (16:00)
--- NOTE | 2018-01-26 20:07 | NURSING ---
Addendum entered by America Navarro 01/26/18 20:35: Pts and daughter updated on orders. Pts had lots of questions about current medications, their uses and the dosages. All questions were answered by this nurse. Both stated they were thankful for care that pt has been receiving. Original Note: Dr. Grullon updated on pts BP 172/85. NO entered.
[2018-01-26] MEDS: MELATONIN 10 MG TABLET PO (21:17)
[2018-01-26] MEDS: hydrALAZINE 25 MG Tablet PO (21:19)
[2018-01-27] MEDS: Levothyroxine 88 MCG Tablet PO (05:24)
[2018-01-27] MEDS: Acetaminophen 500 MG Tablet 1000 MG PO (06:04)
[2018-01-27 06:06] VITALS: BP 187/75; PULSE 60
[2018-01-27] MEDS: Glucerna Shake 120 ML LIQUID PO (06:06)
[2018-01-27] MEDS: hydrALAZINE 25 MG Tablet PO ×3 (06:06→18:58)
[2018-01-27] MEDS: hydroCHLOROthiazide 25 MG Tablet PO (06:06)
[2018-01-27] MEDS: traMADol 50 MG Tablet 100 MG PO ×2 (09:02→17:08)
[2018-01-27] MEDS: Aspirin 81 MG TAB.CHEW PO (09:02)
[2018-01-27 13:36] VITALS: BP 155/70; PULSE 67
[2018-01-27 16:00] VITALS: BP 158/83; PULSE 73; RESP 18; TEMP 36.3; O2SAT 95
--- NOTE | 2018-01-27 18:49 | NURSING ---
Addendum entered by Erma Barton 01/27/18 18:55: DR JACKMAN NOTIFIED, GIVE HYDRALAZINE 25 MG NOW AND RECHECK BP IN ONE HR Original Note: PT VOMITED BROTH LIQUID, DENIES NAUSEA BUT FELT IT COME ON QUICKLY. BP 206/99 HR 80. PT STATES IT JUST CAME ON QUICK. WILL UPDATE DR JACKMAN. PT DID ONLY HAVE BROTH FOR SUPPER & HAD TAKEN AN ULTRAM ON EMPTY STOMACH. ENCOURAGED PT TO BE SURE TO EAT MEALS WHEN TAKING PAIN MEDS.
[2018-01-27 18:58] VITALS: BP 206/99; PULSE 80
[2018-01-27 20:47] VITALS: BP 182/85; PULSE 75; RESP 18; TEMP 36.5; O2SAT 96
--- NOTE | 2018-01-27 22:56 | NURSING ---
Dr Grullon aware of continued nausea and elevated B/P. N.O. Zofran PRN and Chonlidine X1.
[2018-01-27] MEDS: Ondansetron ODT 4 MG Tablet PO (23:10)
[2018-01-27] MEDS: cloNIDine HCl 0.1 MG Tablet PO (23:31)
[2018-01-28] VITALS (7 sets, daily range): BP systolic 112–160; BP diastolic 51–80; PULSE 66–82; RESP 18–20; TEMP 36.4–36.8; O2SAT 94
[2018-01-28] MEDS: Levothyroxine 88 MCG Tablet PO (05:29)
[2018-01-28] MEDS: Ondansetron ODT 4 MG Tablet PO ×2 (06:29→12:32)
[2018-01-28] MEDS: Glucerna Shake 120 ML LIQUID PO ×3 (06:47→16:55)
[2018-01-28] MEDS: hydrALAZINE 50 MG Tablet PO ×3 (06:48→21:54)
[2018-01-28] MEDS: hydroCHLOROthiazide 25 MG Tablet PO (06:49)
[2018-01-28] MEDS: amLODIPine 5 MG Tablet PO (06:49)
--- NOTE | 2018-01-28 08:38 | NURSING ---
Dr. Grullon updated that the pt has been refusing Lovenox shots and SCDs, pt is up ad isak. Also updated that pt is refusing melatonin, miralax, and multivitamin. N.O. to D/C all that is being refused. Pt updated.
[2018-01-28] MEDS: Aspirin 81 MG TAB.CHEW PO (08:48)
--- NOTE | 2018-01-28 11:32 | CASEMGMT ---
Insurance Clinical information submitted. Pending continued stay approval at this time. Auth#[id number] Geri PUGA, ROOF TECHNICIAN
--- NOTE | 2018-01-28 11:33 | CASEMGMT ---
Brief interview for mental status (BIMS) and resident mood interview (PHQ-9) completed on this day. BIMS score 1318. PHQ-9 score 04/13
--- NOTE | 2018-01-28 13:08 | NURSING ---
Pt and asking about MRI order from 01/26/18. This nurse and called insurance company, order still being reviewed. Pt c/o not feeling well today, VSS, nauseated in chair. Dr. Mitchel valenzuela and [facility] order changed to Q4H. Dr. Bill consulted for pain. Continue to monitor.
[2018-01-28] MEDS: Acetaminophen 500 MG Tablet 1000 MG PO (13:35)
--- NOTE | 2018-01-28 13:39 | NURSING ---
R' C/O NAUSEA. GAVE ZOFRAN WHICH WAS EFFECTIVE. R' WAS THEN ABLE TO TAKE TYLENOL FOR PAIN. R' RESTING AT THIS TIME IN BED WITH AT SIDE. NO FURTHER NEEDS.
--- NOTE | 2018-01-28 16:45 | PCM.DC ---
- Discharge Diagnoses Current Active Problems: Current Active and Chronic Problems Low back pain (Acute) Right rib fracture (Acute) SVT (supraventricular tachycardia) (Acute) Hyperlipidemia (Chronic) Microscopic colitis (Chronic) Vitamin D deficiency (Chronic) Allergic rhinitis (Chronic) You will use the following diet at home:: No restrictions, Regular Your food should be the consistency of: Regular Your liquids should be the consistency of: Regular/Thin Discharge Activity: Return to Normal Activity, May Shower, Use Walker Weight Bearing Status: Weight bearing as tolerated Call your doctor if you observe: Fever of 101 or Higher, Inability to urinate, Inability to have a bowel movement, Shortness of breath, Chest pain, Uncontrolled pain Allergies/Adverse Reactions: Allergies iron Allergy (Verified 01/18/18 08:47) Unknown pentazocine [From Audra] Allergy (Verified 01/18/18 08:47) Other scopolamine Allergy (Verified 01/18/18 08:47) Other Medications to take at Discharge Aspirin [Aspirin, Baby] 81 mg PO DAILY@0800 01/18/18 Azelastine HCl [Astelin] 2 spray NASAL BID PRN 01/18/18 Biotin 1 mg PO DAILY 01/18/18 Budesonide [Entocort EC] 9 mg PO DAILY 01/18/18 Cholecalciferol (Vitamin D3) [Vitamin D3] 2,000 unit PO DAILY 01/18/18 Lactobacillus Acidophilus [Acidophilus Lactobacilli] 1 each PO DAILY 01/18/18 Levothyroxine [Synthroid] 88 mcg PO DAILY 01/18/18 Multivitamins,Ther W-Minerals [Multivitamin With Minerals] 1 tablet PO DAILY 01/18/18 Ubidecarenone [Co Q-10] 75 mg PO DAILY 01/18/18 Acetaminophen [Tylenol] 1,000 mg PO Q8 tablet 01/21/18 Amlodipine [Norvasc] 5 mg PO DAILY #30 tab 01/28/18 Hydrochlorothiazide [Hctz] 25 mg PO DAILY #30 tab 01/28/18 Ondansetron [Zofran Odt] 4 mg PO Q4H PRN PRN #30 tab 01/28/18 Valsartan [Diovan] 160 mg PO BID #60 tab 01/28/18 hydrALAZINE [Apresoline] 50 mg PO TID #90 tab 04/13/18 traMADol [Ultram] 100 mg PO Q6H PRN PRN 3 Days #60 tab 01/28/18 The following prescriptions were given: Ondansetron [Zofran Odt] 4 mg PO Q4H PRN PRN #30 tab PRN Reason: NAUSEA/VOMITING traMADol [Ultram] 100 mg PO Q6H PRN PRN 3 Days #60 tab PRN Reason: Mod-Severe Pain (4-07/27) Amlodipine [Norvasc] 5 mg PO DAILY #30 tab Hydrochlorothiazide [Hctz] 25 mg PO DAILY #30 tab Valsartan [Diovan] 160 mg PO BID #60 tab hydrALAZINE [Apresoline] 50 mg PO TID #90 tab Primary Care Physician: [facility],Out of [Primary Care Provider] - Please follow up with your Primary Care Physician in: 1 week. Proposed Discharge Date: 01/29/18
--- NOTE | 2018-01-28 16:47 | PCM.DC.SUM ---
Discharge Date and Diagnosis - Problem List Patient Problems: Active and Suspected Problems Low back pain (Acute) Right rib fracture (Acute) SVT (supraventricular tachycardia) (Acute) Date of Admission: 01/21/18 Date of Discharge: 01/29/18 - Primary Discharge Diagnosis Active and Suspected Problems Low back pain (Acute) Right rib fracture (Acute) SVT (supraventricular tachycardia) (Acute) - Secondary Discharge Diagnosis Chronic Problems HTN (hypertension) (Chronic) Hypothyroidism (Chronic) History of breast cancer (Chronic) R Breast CA s/p lumpectomy and radiation. Hyperlipidemia (Chronic) Microscopic colitis (Chronic) Vitamin D deficiency (Chronic) Allergic rhinitis (Chronic) Hospital Course and Treatment Imaging Results: 01/21/18 18:45 Diet: Regular Diet Clinical Impression(s) from Imaging Studies Abdomen X-Ray 01/22/18 09:13 IMPRESSION: Moderate amount of retained stool likely causing small bowel ileus. No free air or acute abnormalities Electronically Signed: Zafar Edwrads MD at 10:58 EDT , Service support , Operations: None Procedures: None Summary of Care Provided: The patient is a 82 year old Female with below past medical history hospitalized for chest pain, ruled out for myocardial infarction, negative nuclear stress test, complicated by intractable right rib fracture pain, intractable right lumbar back pain, admitted to TCU for debility, here for rehabilitation, strengthening, prior to discharge home with spouse. On TCU, blood pressure was difficult to control, over 200 systolic, improved with Valsartan 160MG BID, HCTZ 25MG daily, Hydralazine 50MG TID, Amlodipine 5MG, I suspect blood pressure will drop once home, consider trimming back blood pressure medications back to previous regimen. Right lumbar, right hip pain persisted, X-rays were negative for fracture, but resident may have hairline fracture not seen on X-ray. MRI of pelvis, bilateral hips was ordered by pending approval from insurance, consider pursing further imaging as outpatient.[] Discharge home with spouse. Discharge Diet: No Restrictions Discharge Activity: Return to Normal Activity, May Shower, Use Walker Weight Bearing Status: Weight bearing as tolerated Call your doctor if you observe: Fever of 101 or Higher, Inability to urinate, Inability to have a bowel movement, Shortness of breath, Chest pain, Uncontrolled pain Home Medications: Medications to take at Discharge Aspirin [Aspirin, Baby] 81 mg PO DAILY@0800 01/18/18 Azelastine HCl [Astelin] 2 spray NASAL BID PRN 01/18/18 Biotin 1 mg PO DAILY 01/18/18 Budesonide [Entocort EC] 9 mg PO DAILY 01/18/18 Cholecalciferol (Vitamin D3) [Vitamin D3] 2,000 unit PO DAILY 01/18/18 Lactobacillus Acidophilus [Acidophilus Lactobacilli] 1 each PO DAILY 01/18/18 Levothyroxine [Synthroid] 88 mcg PO DAILY 01/18/18 Multivitamins,Ther W-Minerals [Multivitamin With Minerals] 1 tablet PO DAILY 01/18/18 Ubidecarenone [Co Q-10] 75 mg PO DAILY 01/18/18 Acetaminophen [Tylenol] 1,000 mg PO Q8 tablet 01/21/18 Amlodipine [Norvasc] 5 mg PO DAILY #30 tab 01/28/18 Hydrochlorothiazide [Hctz] 25 mg PO DAILY #30 tab 01/28/18 Ondansetron [Zofran Odt] 4 mg PO Q4H PRN PRN #30 tab 01/28/18 Valsartan [Diovan] 160 mg PO BID #60 tab 01/28/18 hydrALAZINE [Apresoline] 50 mg PO TID #90 tab 01/28/18 traMADol [Ultram] 100 mg PO Q6H PRN PRN 3 Days #60 tab 01/28/18 Following Prescrptions Were Given to Patient: Ondansetron [Zofran Odt] 4 mg PO Q4H PRN PRN #30 tab PRN Reason: NAUSEA/VOMITING traMADol [Ultram] 100 mg PO Q6H PRN PRN 3 Days #60 tab PRN Reason: Mod-Severe Pain (4-10/10) Amlodipine [Norvasc] 5 mg PO DAILY #30 tab Hydrochlorothiazide [Hctz] 25 mg PO DAILY #30 tab Valsartan [Diovan] 160 mg PO BID #60 tab hydrALAZINE [Apresoline] 50 mg PO TID #90 tab Primary Care Physician: [facility] Doctor,Out of [Primary Care Provider] - Please follow up with your Primary Care Physician in: 1 week. Disposition: Home Minutes spent on discharge:: 30 Patient Condition:: Stable Medical Necessity - Tobacco Use Smoking Status: Former smoker Tobacco Use: Non-smoker Meaningful Use Info Meaningful Use Diagnoses (Choose all that apply): None applicable
--- NOTE | 2018-01-28 16:48 | CASEMGMT ---
Insurance Continued stay denied with last cover day being 01/28/18 and resident to discharge or financial liability to begin on 01/29/18. Auth#[id number] Geri PUGA, MEDICAL OFFICE TECHNICIAN
--- NOTE | 2018-01-28 16:51 | DS.PCM_ITS ---
Discharge Date and Diagnosis - Problem List Patient Problems: Active and Suspected Problems Low back pain (Acute) Right rib fracture (Acute) SVT (supraventricular tachycardia) (Acute) Date of Admission: 01/21/18 Date of Discharge: 01/29/18 - Primary Discharge Diagnosis Active and Suspected Problems Low back pain (Acute) Right rib fracture (Acute) SVT (supraventricular tachycardia) (Acute) - Secondary Discharge Diagnosis Chronic Problems HTN (hypertension) (Chronic) Hypothyroidism (Chronic) History of breast cancer (Chronic) R Breast CA s/p lumpectomy and radiation. Hyperlipidemia (Chronic) Microscopic colitis (Chronic) Vitamin D deficiency (Chronic) Allergic rhinitis (Chronic) Hospital Course and Treatment Imaging Results: 01/21/18 18:45 Diet: Regular Diet Clinical Impression(s) from Imaging Studies Abdomen X-Ray 01/22/18 09:13 IMPRESSION: Moderate amount of retained stool likely causing small bowel ileus. No free air or acute abnormalities Electronically Signed: Zafar Edwards MD at 10:58 EDT , Service support , Operations: None Procedures: None Summary of Care Provided: The patient is a 82 year old Female with below past medical history hospitalized for chest pain, ruled out for myocardial infarction, negative nuclear stress test, complicated by intractable right rib fracture pain, intractable right lumbar back pain, admitted to TCU for debility, here for rehabilitation, strengthening, prior to discharge home with spouse. On TCU, blood pressure was difficult to control, over 200 systolic, improved with Valsartan 160MG BID, HCTZ 25MG daily, Hydralazine 50MG TID, Amlodipine 5MG , I suspect blood pressure will drop once home, consider trimming back blood pressure medications back to previous regimen. Right lumbar, right hip pain persisted, X-rays were negative for fracture, but resident may have hairline fracture not seen on X-ray. MRI of pelvis, bilateral hips was ordered by pending approval from insurance, consider pursing further imaging as outpatient.[] Discharge home with spouse. Discharge Diet: No Restrictions Discharge Activity: Return to Normal Activity, May Shower, Use Walker Weight Bearing Status: Weight bearing as tolerated Call your doctor if you observe: Fever of 101 or Higher, Inability to urinate, Inability to have a bowel movement, Shortness of breath, Chest pain, Uncontrolled pain Home Medications: Medications to take at Discharge Aspirin [Aspirin, Baby] 81 mg PO DAILY@0800 01/18/18 Azelastine HCl [Astelin] 2 spray NASAL BID PRN 01/18/18 Biotin 1 mg PO DAILY 01/18/18 Budesonide [Entocort EC] 9 mg PO DAILY 01/18/18 Cholecalciferol (Vitamin D3) [Vitamin D3] 2,000 unit PO DAILY 01/18/18 Lactobacillus Acidophilus [Acidophilus Lactobacilli] 1 each PO DAILY 01/18/18 Levothyroxine [Synthroid] 88 mcg PO DAILY 01/18/18 Multivitamins,Ther W-Minerals [Multivitamin With Minerals] 1 tablet PO DAILY 01/02 Ubidecarenone [Co Q-10] 75 mg PO DAILY 01/18/18 Acetaminophen [Tylenol] 1,000 mg PO Q8 tablet 01/21/18 Amlodipine [Norvasc] 5 mg PO DAILY #30 tab 01/28/18 Hydrochlorothiazide [Hctz] 25 mg PO DAILY #30 tab 01/28/18 Ondansetron [Zofran Odt] 4 mg PO Q4H PRN PRN #30 tab 01/28/18 Valsartan [Diovan] 160 mg PO BID #60 tab 01/28/18 hydrALAZINE [Apresoline] 50 mg PO TID #90 tab 01/28/18 traMADol [Ultram] 100 mg PO Q6H PRN PRN 3 Days #60 tab 01/28/18 Following Prescrptions Were Given to Patient: Ondansetron [Zofran Odt] 4 mg PO Q4H PRN PRN #30 tab PRN Reason: NAUSEA/VOMITING traMADol [Ultram] 100 mg PO Q6H PRN PRN 3 Days #60 tab PRN Reason: Mod-Severe Pain (4-10/10) Amlodipine [Norvasc] 5 mg PO DAILY #30 tab Hydrochlorothiazide [Hctz] 25 mg PO DAILY #30 tab Valsartan [Diovan] 160 mg PO BID #60 tab hydrALAZINE [Apresoline] 50 mg PO TID #90 tab Primary Care Physician: [facility] Doctor,Out of [Primary Care Provider] - Please follow up with your Primary Care Physician in: 1 week. Disposition: Home Minutes spent on discharge:: 30 Patient Condition:: Stable Medical Necessity - Tobacco Use Smoking Status: Former smoker Tobacco Use: Non-smoker Meaningful Use Info Meaningful Use Diagnoses (Choose all that apply): None applicable
--- NOTE | 2018-01-28 16:52 | CASEMGMT ---
Social Work Spoke with resident in room. This manager social work communicating to resident that continued stay has been denied with a last cover day of 01/28/18 and resident to discharge on or financial liability to begin on 01/29/18. Resident unsure of whether or not resident is ready to discharge. Resident is requesting for a per to per to be completed. Resident aware that per to per takes time and may not be processed until Wednesday at this time in the day. Resident also aware that if resident stays past tomorrow that resident will be financially responsible. Resident aware that dr. Grullon will be completing the discharge in the event that resident does decide to discharge on 01/29/18, resident wanting to discuss further with spouse on decision. Resident reporting to have all needed durable medical equipment already set up within the home. No continued therapies being recommended at this time. Resident spouse present during conversation and agreeable to all discharge planning. Support given. Proposed discharge date: 01/29/18 pending resident decision. Telephone call to [facility], initiated per to per to be started. PLAN: Discharge home with spouse if that is resident decision. Nursing aware of plan. Geri PUGA, INSPECTOR FLOOR SUB ASSEMBLY
--- NOTE | 2018-01-28 19:25 | NURSING ---
Addendum entered by Triny Grady 01/28/18 20:13: Dr. Ceja to give Kenalog injection. Orders given to give Toradol IM once this evening and once tomorrow before patient leaves. Orders also given for patient to f/u with either Dr. Bill or Dr. Ceja at discharge. Original Note: Dr. Ceja here, N.O. received for Kenolog injection
--- NOTE | 2018-01-28 19:33 | PCM.CONS.GEN ---
Problem List (1) Trochanteric bursitis of right hip Status: Acute (2) Trochanteric bursitis of right hip Status: Acute (3) Pain in right hip Status: Acute (4) Pain in right hip Status: Acute (5) Myalgia Status: Acute (6) Myalgia Status: Acute (7) Acute myofascial pain Status: Acute (8) Acute myofascial pain Status: Acute (9) HTN (hypertension) Status: Chronic Qualifiers: (10) Intractable back pain Status: Acute (11) Intractable rib pain Status: Acute (12) Low back pain Status: Acute (13) Right rib fracture Status: Acute Reason for Consult Date of Consultation: 01/28/18 Reason for Consultation: Patient has severe right hip pain in addition to her pain that she came in was was right rib pain after she had a fall. I was consulted to evaluate the patient persistent right hip pain before discharge. History of Present Illness: The patient is a 82 year old F [] who presented after the fall with right rib pain, patient has an imaging done on admission while she came to the hospital showed right seventh rib fracture, possible 11th rib fracture. Patient has also other CAT scan that done for the hip and pelvic region showed no other fracture. Patient continued to have rehabilitation and treatment provided and she has progressed very well with therapy however she continued to have pain most prominent on the right hip region and affected with walking. Patient stated that she did not have this pain from before she only had history of lower back pain. Patient has x-ray done showed lumbar degenerative disc disease. Vision denies any numbness tingling down the leg, patient denies any problem with bladder or bowel control issues. Past Medical History Past Medical History (Chronic Problems): Chronic Problems HTN (hypertension) (Chronic) Hypothyroidism (Chronic) History of breast cancer (Chronic) R Breast CA s/p lumpectomy and radiation. Hyperlipidemia (Chronic) Microscopic colitis (Chronic) Vitamin D deficiency (Chronic) Allergic rhinitis (Chronic) Allergies iron Allergy (Verified 01/18/18 08:47) Unknown pentazocine [From Talwin] Allergy (Verified 01/18/18 08:47) Other scopolamine Allergy (Verified 01/18/18 08:47) Other Home Medications: Ambulatory Orders Medication Instructions Recorded Aspirin [Aspirin, Baby] 81 mg PO DAILY@0800 01/18/18 Azelastine HCl [Astelin] 2 spray NASAL BID PRN 01/18/18 Biotin 1 mg PO DAILY 01/18/18 Budesonide [Entocort EC] 9 mg PO DAILY 01/18/18 Cholecalciferol (Vitamin D3) 2,000 unit PO DAILY 01/18/18 [Vitamin D3] Lactobacillus Acidophilus 1 each PO DAILY 01/18/18 [Acidophilus Lactobacilli] Levothyroxine [Synthroid] 88 mcg PO DAILY 01/18/18 Multivitamins,Ther W-Minerals 1 tablet PO DAILY 01/18/18 [Multivitamin With Minerals] Ubidecarenone [Co Q-10] 75 mg PO DAILY 01/18/18 Acetaminophen [Tylenol] 1,000 mg PO Q8 tablet 01/21/18 Amlodipine [Norvasc] 5 mg PO DAILY #30 tab 01/28/18 Hydrochlorothiazide [Hctz] 25 mg PO DAILY #30 tab 01/28/18 Ondansetron [Zofran Odt] 4 mg PO Q4H PRN PRN #30 tab 01/28/18 Valsartan [Diovan] 160 mg PO BID #60 tab 01/28/18 hydrALAZINE [Apresoline] 50 mg PO TID #90 tab 01/28/18 traMADol [Ultram] 100 mg PO Q6H PRN PRN 3 Days #60 01/28/18 tab Surgical History: appendectomy, hysterectomy, - - Right breast lumpectomy. Psychiatric History: No pertinent psych hx MARKETING STRATEGY LEAD History: No pertinent MARKETING STRATEGY LEAD history Lives: Spouse/ Significant Other Smoking Status: Former smoker Tobacco Use: Non-smoker Alcohol: None Drugs: None - *Family History Maternal History Items: Heart Disease, Hypertension Paternal History Items: Heart Disease, Hypertension Review of Systems Musculoskeletal: Reports: Back Pain, Joint stiffness, Joint Tenderness, Leg Pain Skin: Reports: Dryness Neurological: Reports: Balance problems Psychiatric: Reports: Anxiety Patient Problems: Active and Suspected Problems Low back pain (Acute) Right rib fracture (Acute) SVT (supraventricular tachycardia) (Acute) Trochanteric bursitis of right hip (Acute) Trochanteric bursitis of right hip (Acute) Pain in right hip (Acute) Pain in right hip (Acute) Myalgia (Acute) Myalgia (Acute) Acute myofascial pain (Acute) Acute myofascial pain (Acute) - Physical Exam General: Alert, Oriented x3, Cooperative HEENT: Atraumatic, Normocephalic Oral: Moist Mucosa Neck: Supple, No Nodes Lungs: Clear to auscultation, No rhonchi, No wheeze Cardiovascular: Regular rate, Regular Rhythm Abdomen: Bowel Sounds Present Extremities: No clubbing, Tenderness Skin: No rashes Musculoskeletal: Arthritic Changes, Tenderness - Pain, - - Pain, tenderness on palpation of the right greater trochanteric bursa on exam Limited mildly painful lumbar range of motion on the right, negative straight leg raise sign on the right Lymphatic: No Cervical, Supraclavicular, or Inguinal Adenopathy Neurological: Cranial nerves II-XII grossly intact, Deep Tendon Reflexes 2+/4 and Symmetrical, Neuro grossly intact, Motor Exam 5/5 strength throughout, Muscle tone normal - Noted patient has symmetrical motor power bilateral lower extremity Psych/Mental Status: Normal Affect, Anxious Vital Signs Temp Pulse Resp BP Pulse Ox 97.6 F L 82 18 112/75 94 01/28/18 15:37 01/28/18 15:37 01/28/18 15:37 01/28/18 15:37 01/28/18 15:37 Oxygen Delivery Method Room Air Weight: 72.95 kg Body Mass Index (BMI) 25.9 Intake and Output for Last 24 Hours 01/26/18 01/27/18 01/28/18 23:59 23:59 23:59 Intake Total 480 / 480 240 / 240 300 / 300 Balance 480 / 480 240 / 240 300 / 300 Assessment/Plan Active and Suspected Problems Low back pain (Acute) Right rib fracture (Acute) SVT (supraventricular tachycardia) (Acute) Trochanteric bursitis of right hip (Acute) Trochanteric bursitis of right hip (Acute) Pain in right hip (Acute) Pain in right hip (Acute) Myalgia (Acute) Myalgia (Acute) Acute myofascial pain (Acute) Acute myofascial pain (Acute) After review of patient presentation, as well as negative findings of fracture on the CT scan of the hip, after my clinical evaluation, I do feel that the patient have elements of greater trochanteric right hip bursitis. I discussed with the patient and family member/ the findings, I did discuss plan for diagnostic/therapeutic injection for the right greater trochanteric bursa, patient and family has agreed. Under sterile condition I had used 25-gauge needle and high axis with palpable surface anatomy for the right greater trochanteric bursa I had injected Marcaine 0.5% concentration preservative-free was Kenalog 40 mg concentration using 10 mL mixture at the area of the right hip greater trochanteric bursa. Patient tolerated the procedure well and was able to perform good motor function at her baseline for the right leg. I also discussed follow-up plan next week with pain management office either with Dr. Bill or myself Address the finding on the lumbar x-ray showed moderate degenerative disc disease which unchanged, I discussed further pain in the future by MRI. I also discussed continuation of physical therapy and further follow-up as I do not see any neurological red flags at this time. Patient has raised concern about the needs of MRI of the pelvis however I's office at CT scan was negative for fracture however MRI would be indicated if patient has no relief after the indicated treatment. For consultation me about Mrs. [email or web address] .
[2018-01-28] MEDS: Triamcinolone Acetonide 40 MG/ML Vial IM (20:24)
[2018-01-28] MEDS: Bupivacaine Mpf 0.5% 30 ML VIAL INFILT (20:24)
[2018-01-28] MEDS: Povidone-Iodine Swabstick 1 PACKET TOPICAL (20:24)
[2018-01-28] MEDS: Ketorolac 15 MG/ML Vial IM (21:55)
[2018-01-29] MEDS: Levothyroxine 88 MCG Tablet PO (06:10)
[2018-01-29] MEDS: Glucerna Shake 120 ML LIQUID PO (06:41)
[2018-01-29 06:42] VITALS: BP 151/67; PULSE 81
[2018-01-29] MEDS: hydrALAZINE 50 MG Tablet PO (06:42)
[2018-01-29] MEDS: amLODIPine 5 MG Tablet PO (06:43)
[2018-01-29] MEDS: hydroCHLOROthiazide 25 MG Tablet PO (06:43)
[2018-01-29] MEDS: Ketorolac 15 MG/ML Vial IM (09:07)
[2018-01-29] MEDS: Ondansetron ODT 4 MG Tablet PO (09:43)
[2018-01-29 11:35] VITALS: BP 144/69; PULSE 84; RESP 18; TEMP 36.7; O2SAT 96
--- NOTE | 2018-02-01 12:44 | CASEMGMT ---
Insurance Notified insurance of resident discharge on 01/29/18 to home with spouse. Auth#[id number] Geri PUGA, SEPTIC TANK SERVICE TECHNICIAN
--- NOTE | 2018-02-02 11:55 | MDS.RN ---
Information for the mds was obtained from review of the clinical record, interview of resident, staff, and direct observation of resident's care.
== END 2018-01-29 11:45 | disposition home or self-care (01) | DRG 560 ==
PROVIDERS: Admitting Provider Family Medicine Geriatric Medicine; Visit Provider Family Medicine Geriatric Medicine
DX: S22.41XD Multiple fractures of ribs, right side, subsequent encounter for fracture with routine healing (principal); I47.1 Supraventricular tachycardia; G62.9 Polyneuropathy, unspecified; E03.9 Hypothyroidism, unspecified; E55.9 Vitamin D deficiency, unspecified; I10 Essential (primary) hypertension; K52.89 Other specified noninfective gastroenteritis and colitis; W19.XXXD Unspecified fall, subsequent encounter; M54.5 Low back pain; E78.5 Hyperlipidemia, unspecified; Z85.3 Personal history of malignant neoplasm of breast; Z79.899 Other long term (current) drug therapy; Z79.82 Long term (current) use of aspirin; Z87.891 Personal history of nicotine dependence; M70.61 Trochanteric bursitis, right hip
CPT/HCPCS: 36415; 74019; 80048; 85025; 97032; 97035; 97110; 97116; 97162; 97166; 97530; 97535; 97802

== ENCOUNTER 2018-02-01 19:13 | Observation (INO) | payer OTHER, MEDICARE, SELFPAY ==
[2018-02-01] VITALS (12 sets, daily range): BP systolic 102–203; BP diastolic 63–143; PULSE 78–100; RESP 12–22; TEMP 36.5–37.1; O2SAT 95–100; BMI 23.5; BMI 22.9; BMI 23.0
--- NOTE | 2018-02-01 19:33 | CT_ITS ---
STUDY: CT BRAIN WITHOUT CONTRAST REASON FOR EXAM: Female, 82 years old. Headache and breast cancer. RADIATION DOSAGE (If Supplied By Facility): CTDIvol = ( 44.99 ) mGy, DLP = ( 779.24 ) mGycm TECHNIQUE: Transaxial CT imaging of the brain was performed without administration of intravenous contrast material. Individualized dose optimization techniques were used for this CT. COMPARISON: None. FINDINGS: Normal soft tissue structures. Normal calvarium. Normal size ventricles and extra-axial spaces for the patient's age. Normal white matter tracts of the cerebral hemispheres. Normal basal ganglia and thalami. Normal brainstem. Normal cerebellum. There is no intracranial hemorrhage. There are no findings of an acute ischemic infarction. Normal visualized paranasal sinuses. CT/Brain/Head without Contrast IMPRESSION: Normal unenhanced CT scan of the brain. Electronically Signed: Joshua Roldan MD at 20:45 EDT , Service support ,
--- NOTE | 2018-02-01 19:33 | EKG12_ITS ---
Test Reason : HEADACHE/NAUSEA Blood Pressure : / mmHG Vent. Rate : 078 BPM Atrial Rate : 078 BPM P-R Int : 156 ms QRS Dur : 078 ms QT Int : 370 ms P-R-T Axes : 071 023 053 degrees QTc Int : 421 ms Normal sinus rhythm Normal ECG Confirmed by ELIZABETH KYLE ([id number]), electronic news gathering editor JOSE LUIS BORREGO ([id number] on 02/03/2018 2:16:42 PM Referred By: JOEY Confirmed By:ELIZABETH KYLE
--- NOTE | 2018-02-01 19:38 | ED.VISSUMM ---
- ER Visit Summary Date of Service: 02/01/18 Chief Complaint: Headache, vomiting History of Present Illness: The patient is a 82 F presents to the emergency department multiple complaints. The patient has had a complicated recent medical course. She was admitted at the end of December. She was found to have rib fractures. She was admitted and started on some pain medication. She states that she was sent home from the hospital. About a day or 2 later, she began to have chest pain. She was admitted at that time, and had a negative stress test. She was hospitalized and transitions to the TCU. While there, she had difficult to control blood pressure. She was started on for new antihypertensive medications on discharge. Since being home, her symptoms worsened. She has begun have increasing nausea despite taking Zofran. She has had a few bouts of vomiting. Last night, she began to have a rather excruciating headache on the left. It was associated with more vomiting. When she woke this morning, she still had a headache and still nauseated. She was complaining of some tingling and shakiness of her right arm. She has not had symptoms like this before. She states that she has had difficulty with word finding since her fall a month ago, but the right arm was new. She denies any chest pain or shortness of breath. She was unable to take her blood pressure medication because of the vomiting. Physical Examination: Vital signs reviewed General: Well-nourished, well-developed Head: Normocephalic, atraumatic Eyes: Pupils equal and reactive, extraocular muscles intact Neck, supple, no lymphadenopathy Heart: Regular rate and rhythm Respiratory: No distress, clear bilaterally Abdomen: Soft, nontender, nondistended, no peritoneal signs Back: Nontender Extremities: Nontender, no edema, no cords Skin: Normal color no rash Neuro: Alert and oriented, no focal or lateralizing deficits Test Results: [] Emergency Department Course and Treatment: The patient presents with headache and hypertension. She was complaining of some shakiness of her right arm. She has no reproducible weakness on examination. She has an NIH of 0. She was treated with IV hydralazine for her marker and hypertension. She was almost at home. However, she did have rather significant decrease in her blood pressure. She also had flushing and worsening nausea. Her head CT does not show acute abnormalities. Her screening lab work is unremarkable. I am concerned given the patient's labile blood pressures with rapid spikes and decreases. I am not sure if this represents a renal artery stenosis or other metabolic process. I do feel with her complaint of right arm weakness and headache she will need more of a neurologic workup with MRI and MRA. Patient was discussed with the hospitalist will be admitted. Treatment Plan: [] Disposition: Admission Impression: 1. Hypertensive urgency 2. Headache 3. Right arm weakness-resolved This note was generated with [employer] dictation software. It may contain incorrect words, spelling, and punctuation that were not noted in review of the chart prior to signing ED Disposition - Plan for ED Patient: Chief Complaint: Hypertension Referrals: [facility] Doctor,Out of [Primary Care Provider] -
[2018-02-01] MEDS: hydrALAZINE 20 MG/ML Vial 10 MG IV (19:54)
[2018-02-01] MEDS: Ondansetron 4 MG/2 ML Vial IV ×2 (19:54→20:40)
[2018-02-01 20:12] LABS: Absolute Lymphocyte Count 0.86 X10^3/ul (0.83-4.51); Absolute Neutrophil Count 5.3 X10^3/uL (2.0-7.7); Basophil# 0.02 X10^3/uL; Basophil% 0.3 % (0-1); Hematocrit 40.8 % (37-47); Hemoglobin 13.6 g/dl (12.0-15.0); Lymphocyte # 0.86 X10^3/ul (4.0); Lymphocyte % 12.9 % (19-41); Mean Corp Hgb Conc 33.3 g/gl (32-36); Mean Corpuscular Hgb 32.3 pg (27.0-32.0); Mean Corpuscular Volume 96.9 fL (81-99); Monocyte% 7.5 % (0-10); Neutrophil # 5.29 X10^3/uL (2.7-7.7); Neutrophil % 79.2 % (47-70); POSITIVE COUNT NO; POSITIVE DIFFERENTIAL NO; POSITIVE MORPHOLOGY NO; Platelet Count 292 K/mm3 (150-450); RBC Distribution Width CV 12.8 % (11.6-14.6); Red Blood Count 4.21 M/mm3 (4.2-5.4); White Blood Count 6.7 K/mm3 (4.4-11.0)
[2018-02-01 20:32] LABS: ALB/GLOB Ratio 1.1 RATIO (0.9-2.4); AST(SGOT) 20 U/L (15-37); Alanine Aminotransfer ALT/SGPT 20 U/L (13-56); Albumin, Serum 3.9 g/dL (3.2-5.0); Alkaline Phosphatase 80 U/L (45-117); Anion Gap 9 (5-15); BUN 27 mg/dL (7-18); BUN/Creat Ratio 22.1 RATIO (10-20); Calcium,Total 9.2 mg/dL (8.5-10.1); Chloride 101 mmol/L (98-107); Creatinine, Serum 1.22 mg/dL (0.55-1.02); EST Glomerular Filtration Rate 45 mL/min (>60); Est Glom Filt Rate - Afr Amer 54 mL/min (>60); Estimated Creatinine Clearance 35.17 ml/min; Globulin 3.4 g/dL (2.2-4.2); Glucose 121 mg/dL (74-106); Potassium 4.7 mmol/L (3.5-5.1); Protein, Total 7.3 g/dL (6.4-8.2); Sodium Level 135 mmol/L (136-145)
[2018-02-01] MEDS: proMETHazine 25 MG/ML Syringe 6.25 MG IV (20:59)
--- NOTE | 2018-02-01 22:26 | PCM.HP.STD ---
Problem List (1) Cephalgia Status: Acute Qualifiers: Headache type: unspecified (2) Uncontrolled hypertension Status: Acute History of Present Illness Date of Admission: 02/01/18 Chief Complaint: Uncontrolled hypertension, cephalgia The patient is a 82 year old F seen in the emergency room at [facility] with chief complaint of cephalgia since last night, nausea, and 2 episodes of emesis today. Patient also complains of a frontal headache and a headache located behind her eyes. Patient denies any confusion, she denies any focal weakness, patient's family had noted that her blood pressure was elevated today. Patient has a complicated medical history which includes hospitalization on [facility] after suffering a fall and breaking a rib, from [facility] where she spent 3-4 weeks and rehab. During the time that she was in TCU, she complained of right hip pain but according to the family, she was told by TCU that she could not have an MRI of her right hip due to the fact the insurance company would not approve this. She was discharged several days ago from TCU and went home, she continued to have right hip pain and the had scheduled her for an MRI of her right hip today but the patient was to nauseated and had emesis and could not undergo the scan. Evaluation in the emergency room included a CT of the brain which showed no evidence of acute bleed, patient had lab work drawn which showed an elevated creatinine 1.22 which appear to be her baseline, a BUN of 27, and a glucose of 121. White blood cell count was normal at 6.7. Patient's blood pressure was 194/109, she was given IV Apresoline but her blood pressure dropped to 102/63 following the administration of the Apresoline. I interviewed the patient, the patient was in the room with her and daughter, she seem reluctant to carry on a conversation with me and kept her eyes closed most of the time throughout my examination. Patient will be placed in observation status on PCU for hypertensive urgency, because of the lengthy history of right hip pain without a confirmatory diagnosis, I have decided to order an MRI in her right hip and have orthopedic surgery see her in consultation. I have decided to change the patient's blood pressure medications, I taken her off of Norvasc and Apresoline, she will remain on hydrochlorothiazide at a lower dose, Diovan 160 mg twice a day, and I have added metoprolol 25 mg twice daily to her medications. Patient had complained of leg edema and constipation on her home medications which included Norvasc, this is why I have decided to hold the Norvasc for now. Past Medical History Past Medical History (Chronic Problems): Chronic Problems HTN (hypertension) (Chronic) Hypothyroidism (Chronic) History of breast cancer (Chronic) R Breast CA s/p lumpectomy and radiation. Hyperlipidemia (Chronic) Microscopic colitis (Chronic) Vitamin D deficiency (Chronic) Allergic rhinitis (Chronic) Allergies iron Allergy (Verified 01/18/18 08:47) Unknown pentazocine [From Talwin] Allergy (Verified 01/18/18 08:47) Other scopolamine Allergy (Verified 01/18/18 08:47) Other Home Medications: Ambulatory Orders Medication Instructions Recorded Aspirin [Aspirin, Baby] 81 mg PO DAILY@0800 01/18/18 Azelastine HCl [Astelin] 2 spray NASAL BID PRN 01/18/18 Biotin 1 mg PO DAILY 01/18/18 Budesonide [Entocort EC] 9 mg PO DAILY 01/18/18 Cholecalciferol (Vitamin D3) 2,000 unit PO DAILY 01/18/18 [Vitamin D3] Lactobacillus Acidophilus 1 each PO DAILY 01/18/18 [Acidophilus Lactobacilli] Levothyroxine [Synthroid] 88 mcg PO DAILY 01/18/18 Multivitamins,Ther W-Minerals 1 tablet PO DAILY 01/18/18 [Multivitamin With Minerals] Ubidecarenone [Co Q-10] 75 mg PO DAILY 01/18/18 Acetaminophen [Tylenol] 1,000 mg PO Q8 tablet 01/21/18 Amlodipine [Norvasc] 5 mg PO DAILY #30 tab 01/28/18 Hydrochlorothiazide [Hctz] 25 mg PO DAILY #30 tab 01/28/18 Ondansetron [Zofran Odt] 4 mg PO Q4H PRN PRN #30 tab 01/28/18 Valsartan [Diovan] 160 mg PO BID #60 tab 01/28/18 hydrALAZINE [Apresoline] 50 mg PO TID #90 tab 01/28/18 traMADol [Ultram] 100 mg PO Q6H PRN PRN 3 Days #60 04/13/18 tab Magnesium Hydroxide [Milk Of 30 ml PO DAILY PRN PRN 02/01/18 Magnesia] Senna/Docusate Sodium [Senokot-S, 2 tablet PO QHS 02/01/18 Arabella-Colace] Surgical History: appendectomy, hysterectomy, - - Right breast lumpectomy, vein stripping of the leg Psychiatric History: No pertinent psych hx 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 Denies: Difficulty Swallowing, Dysphasia, Ear Pain, Eye Pain, Hearing Changes, Nasal bleeding, Nasal Congestion, Post Nasal Drip, Sinus Drainage, Sore Throat, Visual Changes Cardiovascular: Denies: Chest Pain, Claudication, Chest Pressure, Chest Tightness, Edema, Heaviness, Orthopnea, Palpitations, Paroxysmal Noc. Dyspnea Respiratory: Denies: Cough, Hemoptysis, Pleuritic Pain, Shortness of Breath, Shortness of breath upon exertion, Sputum production, Wheezing Gastrointestinal: Reports: Constipation, Nausea, Vomiting. Denies: Abdominal Pain, Diarrhea, Dyspepsia, Hematemesis, Hematochezia, Melena Genitourinary: Denies: Frequency, Hematuria, Nocturia, Retention Gynecological: Denies: Breast symptoms Musculoskeletal: Reports: Joint Pain - Right hip pain ?3-4 weeks. Denies: Arm Pain, Back Pain, Foot Pain, Hand Pain, Joint swelling, Leg Pain Skin: Denies: Dryness, Jaundice, Pruritis, Rash, Wounds Neurological: Denies: Balance problems, Blurred vision, Double vision, Change in Speech, Slurred speech, Difficulty swallowing, Focal weakness, Headaches, Incoordination Psychiatric: Denies: Anxiety, Depression, Homicidal Ideations Endocrine: Denies: Change in Body Habitus, Heat/ Cold Intolerance, Polyuria, Hx of Irradiation Hematologic/ Lymphatic: Denies: Adenopathy, Anemia, Easy Bruising, Petechiae, Purpura VTE Information - Inpt Only VTE Present on Admission: No VTE Mechan Device Prophylaxis: None VTE Pharm Prophylaxis ordered?: Yes Patient Problems: Active and Suspected Problems Cephalgia (Acute) Uncontrolled hypertension (Acute) - Physical Exam General: Alert, Oriented x3, Cooperative, No apparent distress, Well developed HEENT: Atraumatic, PERRLA, EOMI, Normocephalic Oral: Moist Mucosa Neck: Supple, No JVD, Negative Carotid Bruits, No Nuchal Rigidity, Trachea Midline, Thyroid Normal Size and Texture Lungs: Clear to auscultation, Normal air movement, No rhonchi, No wheeze, No rales Cardiovascular: Regular rate, Regular Rhythm, Normal S1, Normal S2, No murmurs, No Ectopic Activity, PMI Normal, No rub noted, No Gallop Abdomen: Bowel Sounds Present, Soft, Non Tender, Non-Distended, No hernias noted Extremities: No clubbing, No cyanosis, No edema, Capillary Refill Less than 3 Seconds Skin: No rashes, No breakdown Musculoskeletal: - - Patient complains of pain in her right hip when the hip is placed in flexion, abduction, and external rotation Neurological: Cranial nerves II-XII grossly intact, Neuro grossly intact, Sensory exam intact to light touch and pain, Coordination normal Psych/Mental Status: Appropriate, Flat Affect, Alert and oriented to time, place, person, mood and affect Vital Signs Temp Pulse Resp BP Pulse Ox 97.8 F 91 16 170/66 H 96 02/01/18 21:22 02/01/18 22:06 02/01/18 22:06 02/01/18 22:06 02/01/18 22:06 Oxygen Delivery Method Room Air Assessment/Plan Active and Suspected Problems Cephalgia (Acute) Uncontrolled hypertension (Acute) #1 hypertensive urgency-patient will be placed into observation status on PCU, I will place her on metoprolol, continue her Diovan, and continue her hydrochlorothiazide at 12.5 mg daily. Additional medications may need to be added to her medicine regimen, patient will be monitored on telemetry #2 cephalgia-etiology unclear, possibly secondary to uncontrolled hypertension, patient will be observed and analgesics will be administered as needed #3 right hip pain ?3-4 weeks-etiology unclear, patient will have an MRI of her right hip performed, she will be seen in consultation by orthopedic surgery #4 chronic kidney disease stage III secondary to hypertension Code Visit OBSV E&M: [id number] Initial observation care L3
--- NOTE | 2018-02-01 22:36 | HP.PCM_ITS ---
Problem List (1) Cephalgia Status: Acute Qualifiers: Headache type: unspecified (2) Uncontrolled hypertension Status: Acute History of Present Illness Date of Admission: 02/01/18 Chief Complaint: Uncontrolled hypertension, cephalgia The patient is a 82 year old F seen in the emergency room at [facility] with chief complaint of cephalgia since last night, nausea, and 2 episodes of emesis today. Patient also complains of a frontal headache and a headache located behind her eyes. Patient denies any confusion, she denies any focal weakness, patient's family had noted that her blood pressure was elevated today. Patient has a complicated medical history which includes hospitalization on [facility] after suffering a fall and breaking a rib, from [facility] was [facility] where she spent 3-4 weeks and rehab. During the time that she was in TCU, she complained of right hip pain but according to the family, she was told by TCU that she could not have an MRI of her right hip due to the fact the insurance company would not approve this. She was discharged several days ago from TCU and went home, she continued to have right hip pain and the had scheduled her for an MRI of her right hip today but the patient was to nauseated and had emesis and could not undergo the scan. Evaluation in the emergency room included a CT of the brain which showed no evidence of acute bleed, patient had lab work drawn which showed an elevated creatinine 1.22 which appear to be her baseline, a BUN of 27, and a glucose of 121. White blood cell count was normal at 6.7. Patient's blood pressure was 194/109, she was given IV Apresoline but her blood pressure dropped to 102/63 following the administration of the Apresoline. I interviewed the patient, the patient was in the room with her and daughter, she seem reluctant to carry on a conversation with me and kept her eyes closed most of the time throughout my examination. Patient will be placed in observation status on PCU for hypertensive urgency, because of the lengthy history of right hip pain without a confirmatory diagnosis, I have decided to order an MRI in her right hip and have orthopedic surgery see her in consultation. I have decided to change the patient's blood pressure medications, I taken her off of Norvasc and Apresoline, she will remain on hydrochlorothiazide at a lower dose, Diovan 160 mg twice a day, and I have added metoprolol 25 mg twice daily to her medications. Patient had complained of leg edema and constipation on her home medications which included Norvasc, this is why I have decided to hold the Norvasc for now. Past Medical History Past Medical History (Chronic Problems): Chronic Problems HTN (hypertension) (Chronic) Hypothyroidism (Chronic) History of breast cancer (Chronic) R Breast CA s/p lumpectomy and radiation. Hyperlipidemia (Chronic) Microscopic colitis (Chronic) Vitamin D deficiency (Chronic) Allergic rhinitis (Chronic) Allergies iron Allergy (Verified 01/18/18 08:47) Unknown pentazocine [From Talwin] Allergy (Verified 01/18/18 08:47) Other scopolamine Allergy (Verified 01/18/18 08:47) Other Home Medications: Ambulatory Orders Medication Instructions Recorded Aspirin [Aspirin, Baby] 81 mg PO DAILY@0800 01/18/18 Azelastine HCl [Astelin] 2 spray NASAL BID PRN 01/18/18 Biotin 1 mg PO DAILY 01/18/18 Budesonide [Entocort EC] 9 mg PO DAILY 01/18/18 Cholecalciferol (Vitamin D3) 2,000 unit PO DAILY 01/18/18 [Vitamin D3] Lactobacillus Acidophilus 1 each PO DAILY 01/18/18 [Acidophilus Lactobacilli] Levothyroxine [Synthroid] 88 mcg PO DAILY 01/18/18 Multivitamins,Ther W-Minerals 1 tablet PO DAILY 01/18/18 [Multivitamin With Minerals] Ubidecarenone [Co Q-10] 75 mg PO DAILY 01/18/18 Acetaminophen [Tylenol] 1,000 mg PO Q8 tablet 01/21/18 Amlodipine [Norvasc] 5 mg PO DAILY #30 tab 01/28/18 Hydrochlorothiazide [Hctz] 25 mg PO DAILY #30 tab 01/28/18 Ondansetron [Zofran Odt] 4 mg PO Q4H PRN PRN #30 tab 01/28/18 Valsartan [Diovan] 160 mg PO BID #60 tab 01/28/18 hydrALAZINE [Apresoline] 50 mg PO TID #90 tab 01/28/18 traMADol [Ultram] 100 mg PO Q6H PRN PRN 3 Days #60 04/13/18 tab Magnesium Hydroxide [Milk Of 30 ml PO DAILY PRN PRN 02/01/18 Magnesia] Senna/Docusate Sodium [Senokot-S, 2 tablet PO QHS 02/01/18 Arabella-Colace] Surgical History: appendectomy, hysterectomy, - - Right breast lumpectomy, vein stripping of the leg Psychiatric History: No pertinent psych hx 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 Denies: Difficulty Swallowing, Dysphasia, Ear Pain , Eye Pain, Hearing Changes, Nasal bleeding, Nasal Congestion, Post Nasal Drip, Sinus Drainage, Sore Throat, Visual Changes Cardiovascular: Denies: Chest Pain, Claudication, Chest Pressure, Chest Tightness, Edema, Heaviness, Orthopnea, Palpitations, Paroxysmal Noc. Dyspnea Respiratory: Denies: Cough, Hemoptysis, Pleuritic Pain, Shortness of Breath, Shortness of breath upon exertion, Sputum production, Wheezing Gastrointestinal: Reports: Constipation, Nausea, Vomiting. Denies: Abdominal Pain, Diarrhea, Dyspepsia, Hematemesis, Hematochezia, Melena Genitourinary: Denies: Frequency, Hematuria, Nocturia, Retention Gynecological: Denies: Breast symptoms Musculoskeletal: Reports: Joint Pain - Right hip pain ?3-4 weeks. Denies: Arm Pain, Back Pain, Foot Pain, Hand Pain, Joint swelling, Leg Pain Skin: Denies: Dryness, Jaundice, Pruritis, Rash, Wounds Neurological: Denies: Balance problems, Blurred vision, Double vision, Change in Speech, Slurred speech, Difficulty swallowing, Focal weakness, Headaches, Incoordination Psychiatric: Denies: Anxiety, Depression, Homicidal Ideations Endocrine: Denies: Change in Body Habitus, Heat/ Cold Intolerance, Polyuria, Hx of Irradiation Hematologic/ Lymphatic: Denies: Adenopathy, Anemia, Easy Bruising, Petechiae, Purpura VTE Information - Inpt Only VTE Present on Admission: No VTE Mechan Device Prophylaxis: None VTE Pharm Prophylaxis ordered?: Yes Patient Problems: Active and Suspected Problems Cephalgia (Acute) Uncontrolled hypertension (Acute) - Physical Exam General: Alert, Oriented x3, Cooperative, No apparent distress, Well developed HEENT: Atraumatic, PERRLA, EOMI, Normocephalic Oral: Moist Mucosa Neck: Supple, No JVD, Negative Carotid Bruits, No Nuchal Rigidity, Trachea Midline, Thyroid Normal Size and Texture Lungs: Clear to auscultation, Normal air movement, No rhonchi, No wheeze, No rales Cardiovascular: Regular rate, Regular Rhythm, Normal S1, Normal S2, No murmurs, No Ectopic Activity, PMI Normal, No rub noted, No Gallop Abdomen: Bowel Sounds Present, Soft, Non Tender, Non-Distended, No hernias noted Extremities: No clubbing, No cyanosis, No edema, Capillary Refill Less than 3 Seconds Skin: No rashes, No breakdown Musculoskeletal: - - Patient complains of pain in her right hip when the hip is placed in flexion, abduction, and external rotation Neurological: Cranial nerves II-XII grossly intact, Neuro grossly intact, Sensory exam intact to light touch and pain, Coordination normal Psych/Mental Status: Appropriate, Flat Affect, Alert and oriented to time, place , person, mood and affect Vital Signs Temp Pulse Resp BP Pulse Ox 97.8 F 91 16 170/66 H 96 02/01/18 21:22 02/01/18 22:06 02/01/18 22:06 02/01/18 22:06 02/01/18 22:06 Oxygen Delivery Method Room Air Assessment/Plan Active and Suspected Problems Cephalgia (Acute) Uncontrolled hypertension (Acute) #1 hypertensive urgency-patient will be placed into observation status on PCU, I will place her on metoprolol, continue her Diovan, and continue her hydrochlorothiazide at 12.5 mg daily. Additional medications may need to be added to her medicine regimen, patient will be monitored on telemetry #2 cephalgia-etiology unclear, possibly secondary to uncontrolled hypertension, patient will be observed and analgesics will be administered as needed #3 right hip pain ?3-4 weeks-etiology unclear, patient will have an MRI of her right hip performed, she will be seen in consultation by orthopedic surgery #4 chronic kidney disease stage III secondary to hypertension Code Visit OBSV E&M: [id number] Initial observation care L3
[2018-02-01] MEDS: traMADol 50 MG Tablet 100 MG PO (23:25)
[2018-02-01] MEDS: Metoprolol Tartrate 25 MG Tablet PO (23:26)
[2018-02-01] MEDS: Acetaminophen 500 MG Tablet 1000 MG PO (23:26)
[2018-02-02 03:16] VITALS: PULSE 67
[2018-02-02 04:31] VITALS: BP 135/70; PULSE 69; RESP 16; TEMP 37.1; O2SAT 95
--- NOTE | 2018-02-02 05:55 | MRI_ITS ---
STUDY: MRI BILATERAL HIPS T PELVIS REASON FOR EXAM: Right hip pain for 3 to 4 weeks, recent fall. TECHNIQUE: Standardized fat and water weighted pulse sequences were obtained in all 3 orthogonal planes. COMPARISON: Radiographs 02/02/2018. FINDINGS: RIGHT HIP Normal hip joint without articular joint space narrowing. Normal right acetabulum. Normal right labrum. Normal right femoral head. There is mild bone edema in the medial aspect of the right femoral neck (inversion recovery coronal image 15), likely a stress phenomenon. Normal right gluteus minimus, medius and iliopsoas tendons and distal insertions. There is atrophy with fat replacement of the anterior aspect of the bilateral gluteus minimus muscles (T1 coronal images 17, 18). Normal right superior and inferior pubic rami. Normal right pubic symphysis. Normal right ischial tuberosity. Normal origin of the right hamstring tendons. Normal visualized right iliac wing, sacroiliac joint, and sacral ala. There is mild edema in the lateral subcutis adipose space bilaterally. There is a signal void in the subcutis adipose space lateral to the right subtrochanteric femur (T1 coronal images 10, 11) consistent with calcification. LEFT HIP Normal left hip joint without articular joint space narrowing. Normal left acetabulum. Normal left labrum. Normal left femoral head. Normal left femoral neck and intratrochanteric region. Normal left gluteus minimus, medius and iliopsoas tendons and distal insertions. Normal left superior and inferior pubic rami. Normal left pubic symphysis. Normal left ischial tuberosity. Normal origin of the left hamstring tendons. Normal visualized left iliac wing, sacroiliac joint, and sacral ala. MRI/Pelvis (Routine) IMPRESSION: Mild bone edema of the medial aspect of the right femoral neck, a stress phenomenon. Soft tissue calcification in the subcutis adipose space of the proximal right thigh. Atrophy of the gluteus minimus muscles bilaterally. Electronically Signed: Thaddeus Bertrand MD at 10:15 EDT Tel , Service support ,
[2018-02-02 06:54] VITALS: PULSE 63
[2018-02-02] MEDS: Levothyroxine 88 MCG Tablet PO (07:05)
[2018-02-02] MEDS: Acetaminophen 500 MG Tablet 1000 MG PO (07:05)
[2018-02-02 07:26] LABS: Mucous, Urine 0 SEEN /hpf (<or=2+); Red Blood Cells-Urine 0 SEEN /hpf (0-5)
[2018-02-02 07:29] LABS: Color, Urine Yellow (Yellow); Glucose, Dipstick Normal (Normal); Ketone-Dipstick Negative (Negative); Leukocyte Esterase-Dipstick 100 /ul (Negative); Nitrite-Dipstick Negative (Negative); Occult Blood-Urine Negative /ul (Negative); Protein-Dipstick 30 mg/dl (Negative); Urine Bilirubin Dipstick Negative (Negative); Urine Clarity Sl. Cloudy (Clear); Urine Urobilinogen Normal (Normal)
--- NOTE | 2018-02-02 07:30 | RAD_ITS ---
STUDY: X-RAY - RIGHT FEMUR REASON FOR STUDY: Female, 82 years old. Right hip pain. TECHNIQUE: Radiological exam, femur, minimum 2 views COMPARISON: None. FINDINGS: Normal visualized femur. There is a 1 cm x 1.4 cm calcific density in the soft tissues overlying the lateral aspect of the proximal femur. RAD/Femur Min 2 Views IMPRESSION: Normal x-ray examination of the femur. 1 cm x 1.4 cm calcific density in the soft tissues overlying the lateral aspect of the proximal femur. Electronically Signed: Marcus Calloway MD at 8:24 EDT Tel [phone], Service support ,
[2018-02-02 07:44] LABS: Bacteria 1+ /hpf (None Seen); Squamous Epithelial Cells - UA 0-5 SEEN /hpf (5-10); White Blood Cells 0-5 SEEN /hpf (0-5)
[2018-02-02] MEDS: Aspirin 81 MG TAB.CHEW PO (08:27)
[2018-02-02 10:30] VITALS: BP 166/76; PULSE 67; RESP 14; TEMP 37.1; O2SAT 96
[2018-02-02] MEDS: HYDROCHLOROTHIAZIDE 12.5 MG CAPSULE PO (10:36)
--- NOTE | 2018-02-02 10:43 | NURSING ---
during 1000 medication administration, pt & family questioning medications ordered. reviewed medications ordered & their effect. pt and family concerned about new medication Lopressor and possibility of it causing headache and/or nausea. educated that h/a & nausea she experienced prior to admission could have been a systemic response, not necessarily from her meds. pt chose to hold off on Lopressor until MD came to see her.
[2018-02-02 11:01] VITALS: PULSE 65
--- NOTE | 2018-02-02 12:46 | CON.PCM_ITS ---
Problem List (1) Hip joint painful on movement Status: Acute Qualifiers: Laterality: right Qualified Code(s): M25.551 - Pain in right hip (2) Greater trochanteric bursitis Status: Acute Qualifiers: Laterality: right Qualified Code(s): M70.61 - Trochanteric bursitis, right hip (3) Pain in right hip Status: Acute - Consult Date of Consult: 02/02/18 Consult request right hip pain History Per patient, patient's , and daughter approximately 4 weeks ago patient was at home fell onto her right hip. Patient was hospitalized and was seen and underwent [facility]. Patient is continued to have ongoing pain on the outside of her right hip and posteriorly of the right hip. Patient states the pain is made worse with ambulation or weightbearing and movement. She denies any other associated injury with her fall. Patient states she has had no hip pain prior to the fall 4 weeks ago. Patient denies any pain within the groin or inguinal region. Patient admits that she does have a long history of low back pain, but this does not seem to be the same pain that she has had with her back. Patient states she has no pain radiation into her leg she has had no bowel or urinary incontinence. Patient states she has been walking with a walker since her fall. On January 28 patient was seen by Dr. Russo's office and received a cortisone injection in the greater trochanteric region of the right hip. Patient states she has had little or no relief with this injection. Patient does admit that she has had some improvement of her hip pain but still having pain rated as high as a 7 on a scale of 1-10 can be pain-free with rest and nonweightbearing. Per the family as well as the patient she states that she was very active prior to her fall and had no problems with her hip prior. Review of systems patient states she is otherwise been in good health denies any recent illnesses or injury other than stated above. Denies any chest pain shortness of breath, calf pain, or nausea vomiting. We otherwise discussed reviewed at length detailed 10 review of systems all positive negatives noted in the medical record. Past medical history as noted Exam Putting room I found a pleasant alert oriented 82-year-old female sitting up in bed. Her and daughter sitting in her bedside. Cranial nerves II through XII grossly intact. No signs of trauma to head face neck. No pain on palpation cervical thoracic lumbar spine. Full range of motion bilateral shoulders elbows wrists and hands. With good muscle tone and strength. Patient had excellent range of motion of the bilateral hips without pain patient 's leg lengths were equal neurovascular is otherwise intact good flexion- extension of the knees bilateral ankles and foot without pain on exam of the right hip, patient had excellent range of motion without pain she did have significant tenderness to palpation directly over the greater trochanteric region of the right hip as well as the posterior aspect of the greater trochanter and posterior femur patient demonstrated no obvious pain within the inguinal region. No ecchymosis or soft tissue trauma noted. MRI of the pelvis shows no obvious bony abnormality of the left hip. Patient does have some mild edema noted in the femoral neck of the right hip however no obvious fractures or other acute abnormalities noted. Patient has mild arthritic change in the bilateral hips Impression 1. Right hip pain 2. Contusion right hip status post fall 3. Greater trochanteric bursitis of the right hip 4. Stress phenomenon right femoral neck\stable Plan 1. Continue use of walker, with 50%, toe-touch weightbearing right leg 2. Begin physical therapy with active passive range of motion of right hip 3. If cleared with medicine began a short course of oral anti-inflammatory 4. Follow-up with [facility], Dr. Munoz, in 2 weeks
--- NOTE | 2018-02-02 14:21 | PCM.DC ---
- Discharge Diagnoses Current Active Problems: Current Active and Chronic Problems Cephalgia (Acute) Uncontrolled hypertension (Acute) Hip joint painful on movement (Acute) Greater trochanteric bursitis (Acute) You will use the following diet at home:: Other - Resume previous diet Your food should be the consistency of: Regular Your liquids should be the consistency of: Regular/Thin Discharge Activity: Use Walker - 50% weight bearing on the R leg Call your doctor if you observe: Fever of 101 or Higher, Inability to have a bowel movement, Shortness of breath, Dizziness, Fainting spells, Swelling in the ankles, Chest pain, Calf discomfort Instructions: Your Body's Response to Anxiety Additional Instructions: 1. You MUST take the medications for pain as directed. You have a small stress fracture of the R femoral neck and there is a small amount of bone edema. It takes at least 6-8 weeks for a bone to heal at your age. You should take the Tylenol every 8 hours for the next 2-3 weeks and then if the pain is better you can take it as needed. I recommend that you take the Tramadol 1 hour prior to scheduled PT. PT is apinful when you are walking on a bone that has a small fracture BUT, you must keep walking so the quadriceps muscle does not atrophy and make your problems worse. 2. When you have pain and get upset you get nauseated and anxious and then your BP goes up. I am giving you a prescription for a medication other than Zofran to take for nausea. It is called Phenergan and this is the third medication you received in the hospital for nausea. You can take 1-2 tsps every 4-6 hours as needed for nausea. 3. AMlodipine causes swelling of the ankles and is not doing a good job controlling you BP. I do not think you should be on a diuretic. I am sending you home on Labetalol and Valsartan. The Labetalol helps to control BP that is due to anxiety and agitation. It may be beneficial to get some counselling to control your response to pain and discomfort and the agitation that arises because of this and makes you nauseated and makes the BP go up. Pending Tests on Discharge: none Allergies/Adverse Reactions: Allergies iron Allergy (Verified 01/18/18 08:47) Unknown pentazocine [From Talwin] Allergy (Verified 01/18/18 08:47) Other scopolamine Allergy (Verified 01/18/18 08:47) Other Medications to take at Discharge Aspirin [Aspirin, Baby] 81 mg PO DAILY@0800 01/18/18 Levothyroxine [Synthroid] 88 mcg PO DAILY 01/18/18 Acetaminophen [Tylenol] 1,000 mg PO Q8 tablet 01/21/18 Hydrochlorothiazide [Hctz] 25 mg PO DAILY #30 tab 01/28/18 Valsartan [Diovan] 160 mg PO BID #60 tab 01/28/18 traMADol [Ultram] 100 mg PO Q6H PRN PRN 3 Days #60 tab 01/28/18 Senna/Docusate Sodium [Senokot-S] 2 tablet PO QHS 02/01/18 Labetalol [Trandate (Beta Shasta)] 200 mg PO BID #60 tab 02/02/18 The following prescriptions were given: Labetalol [Trandate (Beta Shasta)] 200 mg PO BID #60 tab Primary Care Physician: Pita Doctor,Out of [Primary Care Provider] - Please Follow Up With: [facility] When: 2 weeks Proposed Discharge Date: 02/02/18
--- NOTE | 2018-02-02 14:30 | CASEMGMT ---
Addendum entered by Manjula Mejia 02/02/18 15:16: This RN CM back to room to speak with pt and regarding HH company. Pt is fully dressed, sitting up in chair at this time. Pt states she has not made a decision yet on [facility] company for therapy and does not plan to at this time. Pt states 'I would like to go home and look up reviews on my computer first.' Advised pt that this RN CM would not be able to set up once pt leaves and pt states 'That is fine, I will have my PCP set it up for me.' Therapy recommends home(PT) with no further recommendation and does not demonstrate a need for skilled OT at this time. Joseph GALLARDO CM Original Note: Per Dr. Robbins, pt would like [facility] set up for therapy at this time. This RN CM to room to speak with pt regarding HHC. Pt states that she is homebound at this time. Pt states she is interested in HHC but is unsure of who she would like at this time. Pt provided with a list of local in-network HHC agencies at this time but pt states she would like to look the list over and talk to prior to making a decision. Advised pt that discharge order has been placed and that we need to get HHC set up prior to discharge, voices understanding but would like to wait till returns. This RN CM will f/u with pt later. Joseph GALLARDO CM
[2018-02-02 14:52] VITALS: BP 116/48; PULSE 84; RESP 16; TEMP 36.7; O2SAT 95
--- NOTE | 2018-02-02 14:58 | PCM.PROGNOTE ---
Patient Problems: Active and Suspected Problems Stress fracture of right hip (Acute) Cephalgia (Acute) Uncontrolled hypertension (Acute) - Physical Exam Vital Signs Temp Pulse Resp BP Pulse Ox 98.0 F 84 16 116/48 L 95 02/02/18 14:52 02/02/18 14:52 02/02/18 14:52 02/02/18 14:52 02/02/18 14:52 Oxygen Delivery Method Room Air Weight: 146 lb 9.718 oz Body Mass Index (BMI) 22.9 Intake and Output for Last 24 Hours 01/31/18 02/01/18 02/02/18 23:59 23:59 23:59 Intake Total 780 / 780 Balance 780 / 780 Laboratory Tests Past 24 Hrs 02/02/18 07:00 Urine Color Yellow Urine Clarity Sl. Cloudy Urine pH 7.0 Ur Specific [place] 1.010 Urine Protein 30 H Urine Glucose (UA) Normal Urine Ketones Negative Urine Occult Blood Negative Urine Nitrite Negative Urine Bilirubin Negative Urine Urobilinogen Normal Ur Leukocyte Esterase 100 H Urine RBC 0 SEEN Urine WBC 0-5 SEEN Ur Squamous Epith Cells 0-5 SEEN Urine Bacteria 1+ Urine Mucus 0 SEEN Medical Necessity - Tobacco Use Smoking Status: Former smoker Tobacco Use: Non-smoker Assessment/Plan Active and Suspected Problems Stress fracture of right hip (Acute) Cephalgia (Acute) Uncontrolled hypertension (Acute)
--- NOTE | 2018-02-02 14:58 | PCM.DC.SUM ---
Discharge Date and Diagnosis - Problem List Patient Problems: Active and Suspected Problems Stress fracture of right hip (Acute) Date of Admission: 02/01/18 Date of Discharge: 02/02/18 - Primary Discharge Diagnosis Active and Suspected Problems Stress fracture of right hip subacute - likely happened 3-4 weeks prior to this admission Cephalgia (Acute) Uncontrolled hypertension (Acute) - suspect secondary to anxiety N/V related to uncontrolled pain - Secondary Discharge Diagnosis Chronic Problems HTN (hypertension) (Chronic) Hypothyroidism (Chronic) History of breast cancer (Chronic) R Breast CA s/p lumpectomy and radiation. Hyperlipidemia (Chronic) Microscopic colitis (Chronic) Vitamin D deficiency (Chronic) Allergic rhinitis (Chronic) Pain in right hip (Chronic) Anxiety Hospital Course and Treatment Imaging Results: 02/02/18 07:30 Xray Femur [Femur Min 2 Views] [RAD] Routine Clinical Impression(s) from Imaging Studies Brain CT 02/01/18 19:33 IMPRESSION: Normal unenhanced CT scan of the brain. Electronically Signed: Joshua Roldan MD at 20:45 EDT , Service support , Pelvis MRI 02/02/18 05:55 IMPRESSION: Mild bone edema of the medial aspect of the right femoral neck, a stress phenomenon. Soft tissue calcification in the subcutis adipose space of the proximal right thigh. Atrophy of the gluteus minimus muscles bilaterally. Electronically Signed: Thaddeus Bertrand MD at 10:15 EDT Tel , Service support , Femur X-Ray 02/02/18 07:30 IMPRESSION: Normal x-ray examination of the femur. 1 cm x 1.4 cm calcific density in the soft tissues overlying the lateral aspect of the proximal femur. Electronically Signed: Marcus Calloway MD at 8:24 EDT Tel [phone], Service support , [facility] NP Operations: None Procedures: None Summary of Care Provided: The patient is a 82 year old F with a past medical history of hypertension, hypothyroidism, right breast cancer status post lumpectomy and radiation, hyperlipidemia, microscopic colitis, vitamin D deficiency and allergic rhinitis who presented to the emergency department at [facility] on 02/01/2018 complaining of a headache associated with nausea and 2 episodes of emesis. She had recently been discharged from the transitional care unit on 01/29/2018. She was admitted to the hospital a few weeks ago for right iliac crest pain and CT scan of the pelvis was negative for pelvic or hip fractures at that time. She had fallen prior to that admission. Her pain was adequately managed with Tylenol 1000 mg every 8 hours and as needed tramadol at discharge from the hospital. She was discharged from TCU on Tylenol 1 g p.o. every 8 hours and as needed tramadol however she has decreased her Tylenol dose and has not been taking tramadol because she does not like taking medications. This is likely the etiology of her increased pain in the right leg/hip, cephalgia, nausea/vomiting and anxiety leading to elevated blood pressure. On 02/02/2018 she denies nausea and also denies vomiting. She was in her room eating a chicken salad when I talked with her. She did not appear to be in any distress. She was seen by Vaib[facility] Bautista and has been diagnosed with a stress fracture of the R femoral neck. He recommends 50% weight bearing on the RLE and continued use of a FWW. She will follow up with him in the office in 2 weeks to set up OP PT. she was seen by physical therapy in the hospital and was able to ambulate 150 feet with a wheeled walker. She was noncompliant with weightbearing precautions and required maximum cues to instruct on proper weightbearing gait pattern. She was OK with being discharged home and [facility] was ordered for home PT. She is having a chair lift installed in her house on 02/03 to assist her in getting up the steps. She is not always compliant with instruction and does what she feels is appropriate. She is easily agitated and this results in N/V and elevated BP which resolves quickly following admission to the hospital. she was discharged home and was instructed to resume Tylenol 1 g p.o. every 8 hours for at least 2-3 weeks. She will take tramadol 1 hour prior to scheduled physical therapy sessions. She will continue 50% weightbearing on the right lower extremity. She was given a prescription for Phenergan solution and instructed to take 1-2 teaspoons every 4 hours as needed for nausea/vomiting. She has Zofran at home but does not feel that this is effective. I suspect the Phenergan is more sedating and this relieves her anxiety and leads to improvement in nausea/vomiting/elevated blood pressure. This note was generated with [employer] MD dictation software. It may contain incorrect words, spelling, and punctuation that were not noted in checking the note before signing. Discharge Activity: Use Walker - 50% weight bearing on the R leg Call your doctor if you observe: Fever of 101 or Higher, Inability to have a bowel movement, Shortness of breath, Dizziness, Fainting spells, Swelling in the ankles, Chest pain, Calf discomfort Home Medications: Medications to take at Discharge Aspirin [Aspirin, Baby] 81 mg PO DAILY@0800 01/18/18 Levothyroxine [Synthroid] 88 mcg PO DAILY 01/18/18 Acetaminophen [Tylenol] 1,000 mg PO Q8 tablet 01/21/18 Hydrochlorothiazide [Hctz] 25 mg PO DAILY #30 tab 01/28/18 Valsartan [Diovan] 160 mg PO BID #60 tab 01/28/18 traMADol [Ultram] 100 mg PO Q6H PRN PRN 3 Days #60 tab 01/28/18 Senna/Docusate Sodium [Senokot-S] 2 tablet PO QHS 02/01/18 Labetalol [Trandate (Beta Shasta)] 200 mg PO BID #60 tab 02/02/18 proMETHazine soln (6.25mg/5mL) [Phenergan oral solution (6.25 mg/5 mL)] 10 ml PO Q6H PRN PRN #4 oz 02/02/18 Following Prescrptions Were Given to Patient: proMETHazine soln (6.25mg/5mL) [Phenergan oral solution (6.25 mg/5 mL)] 10 ml PO Q6H PRN PRN #4 oz PRN Reason: Nausea/Vomiting Labetalol [Trandate (Beta Shasta)] 200 mg PO BID #60 tab Primary Care Physician: Pita Watkins,Out of [Primary Care Provider] - Please Follow Up With: [facility],Vaibhav - [facility] When: 2 weeks Patient Instructions: Your Body's Response to Anxiety Minutes spent on discharge:: 30 Patient Condition:: Good Medical Necessity - Tobacco Use Smoking Status: Former smoker Tobacco Use: Non-smoker Meaningful Use Info Meaningful Use Diagnoses (Choose all that apply): None applicable Code Visit OBSV E&M: 78428 Observation care discharge
--- NOTE | 2018-02-02 15:26 | NURSING ---
all patient care, documentation, and med administration by Chance Vang, student nurse, done under the supervision of this RN.
== END 2018-02-02 14:38 | disposition home health service (06) ==
LOC: ED 19:53 → PCU 22:15
PROVIDERS: Admitting Provider Internal Medicine; Emergency Provider Emergency Medicine; Visit Provider Internal Medicine
DX: I16.0 Hypertensive urgency (principal); I12.9 Hypertensive chronic kidney disease with stage 1 through stage 4 chronic kidney disease, or unspecified chronic kidney disease; N18.3 Chronic kidney disease, stage 3 (moderate); Z79.899 Other long term (current) drug therapy; Z79.82 Long term (current) use of aspirin; Z85.3 Personal history of malignant neoplasm of breast; E78.5 Hyperlipidemia, unspecified; E03.9 Hypothyroidism, unspecified; Z92.3 Personal history of irradiation; Z87.891 Personal history of nicotine dependence; M84.359A Stress fracture, hip, unspecified, initial encounter for fracture; W19.XXXA Unspecified fall, initial encounter; Y92.9 Unspecified place or not applicable; M70.61 Trochanteric bursitis, right hip
CPT/HCPCS: 70450; 72195; 73552; 80053; 81001; 84484; 85025; 93005; 96374; 96375; 96376; 97162; 97166; 97802; 99218; 99283; J7040; G0378; J2405

== ENCOUNTER 2019-10-15 22:11 | Inpatient (IN) | payer OTHER, MEDICARE, SELFPAY ==
--- NOTE | 2019-10-15 22:12 | CT_ITS ---
We are attempting to reach an attending provider to discuss findings. An addendum with communication details will be sent when the communication is complete. HISTORY: STROKE, SLURRED SPEECH, WEAKNESS, FACIAL DROOP STARTED 30 MINS AGO Technique:CT Head or Brain W/O Contrast Injection Number of Images including paperwork:244 Comparison: None available. Findings: CT images of the head were obtained without contrast. Periventricular deep and subcortical white matter disease is present. Paranasal sinuses are clear. The brain is atrophic. Calcific ASCVD involves intracranial arteries. No acute intracranial edema or hemorrhage. No acute abnormality of orbits. Middle ear cavities and mastoid air cells are well aerated. Skull is normal. CT/Brain/Head without Contrast IMPRESSION: No acute intracranial abnormality. Chronic changes as above. ASPECT 10. Individualized dose optimization techniques were used for this CT. at 2227 Reported and signed by: Josue Galarza MD Electronically Signed: Josue Galarza MD at 22:25 EST Tel , Service support ,
[2019-10-15 22:24] VITALS: BP 206/110; PULSE 89; RESP 18; TEMP 37.3; O2SAT 95; BMI 29.0
[2019-10-15 22:27] VITALS: BP 206/110; PULSE 89; RESP 18; TEMP 37.3; O2SAT 95
[2019-10-15 22:34] VITALS: BMI 29.0
[2019-10-15 22:46] VITALS: BP 207/101; PULSE 82; RESP 16; O2SAT 96
--- NOTE | 2019-10-15 22:46 | RAD_ITS ---
HISTORY: PT STATED HAVING SLURRED SPEECH AND WEAKNESSDENIES ANY PROBLEMS WITH CHEST/BREATHING EXAM: XR Chest 1 View COMPARISON: January 18, 2018 FINDINGS: LINES/DEVICES: Right chest wall right breast surgical clips are unchanged LUNGS: There are chronic interstitial changes. No pneumothorax. No consolidation or effusion. MEDIASTINUM AND CARDIOVASCULAR STRUCTURES: Cardiac silhouette not enlarged. Central airways and mediastinal contour are unremarkable. Athersclerotic plaque within the aortic arch. BONES AND SOFT TISSUES: Thoracic spondylosis. RAD/Chest 1 View IMPRESSION: Chronic interestitial changes. No radiographic evidence of acute cardiopulmonary disease. at 0009 Reported and signed by: Josue Galarza MD Electronically Signed: Josue Galarza MD at 0:08 EST Tel , Service support ,
--- NOTE | 2019-10-15 22:46 | EKG12_ITS ---
Test Reason : NEURO Blood Pressure : / mmHG Vent. Rate : 084 BPM Atrial Rate : 084 BPM P-R Int : 136 ms QRS Dur : 072 ms QT Int : 358 ms P-R-T Axes : 059 026 054 degrees QTc Int : 423 ms Normal sinus rhythm Normal ECG Confirmed by AICHA SERRANO, ERICA ([id number]), rewrite editor TIKA LARA ([id number]) on 10/17/2019 9:46:15 AM Referred By: MYRANDA Confirmed By:ERICA HOLCOMB MD
--- NOTE | 2019-10-15 22:56 | ED.DCSUM_ITS ---
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 This was since she started a medication for colitis. She stated that tonight she was in the shower and developed a headache. She got out of the shower and was having difficulty walking. Her helped her to the bed and called EMS. The patient was having difficulty word finding for EMS but otherwise had no focal neurologic deficits. Upon arrival the patient is only complaining of a headache. Is a frontal achy headache. She does have a history of headaches in the remote past. No home treatment for this. She stated that her vision is okay. She has no slurred speech. She has difficulty finding her words for some things. She has no focal weakness of her upper extremities. She has some weakness to her right lower extremity but it is mild. Her NIH stroke scale is 1. An acute stroke team was called. She went down to CAT scan. CT was negative. She was evaluated by the stroke neurologist as well as myself. At this time I spoke to the family about TPA. They would like to hold off on doing TPA after being informed about the risk and benefit. The patient will continue to have a stroke work-up. - Past Medical History (1) Cephalgia Status: Acute (2) Stress fracture of right hip Status: Acute (3) Trochanteric bursitis of right hip Status: Acute (4) Uncontrolled hypertension Status: Acute (5) Allergic rhinitis Status: Chronic (6) HTN (hypertension) Status: Chronic (7) History of breast cancer Status: Chronic Comment: R Breast CA s/p lumpectomy and radiation. (8) Hyperlipidemia Status: Chronic (9) Hypothyroidism Status: Chronic (10) Microscopic colitis Status: Chronic (11) Pain in right hip Status: Chronic (12) Vitamin D deficiency Status: Chronic (13) Neuropathy Status: Ruled-out Past Medical History - Allergies and Home Meds Allergies/Adverse Reactions: Allergies iron Allergy (Verified 10/15/19 22:32) Unknown pentazocine [From Talwin] Allergy (Verified 10/15/19 22:32) Other scopolamine Allergy (Verified 10/15/19 22:32) Other Primary Care Physician: Christin Aly MD [Primary Care Provider] - Prior records reviewed: Yes Past Medical History: - - Problem list Surgical History: appendectomy, hysterectomy, - - Right breast lumpectomy, vein stripping of the leg Smoking Status: Never smoker Alcohol: None Drugs: None - Family History Maternal Family History: Reports: Heart Disease, Hypertension Paternal Family History: Reports: Heart Disease, Hypertension Review of Systems General: Denies: Chills, Fever, Sweats Eyes: Denies: Visual changes - bilaterally, Diplopia ENT: Denies: Rhinorrhea, Sore throat Cardiovascular: Denies: Chest pain, Palpitations Respiratory: Denies: Dyspnea, Cough, Dyspnea on exertion Gastrointestinal: Denies: Abdominal pain, Nausea, Vomiting, Diarrhea, Melena, Hematochezia Genitourinary: Denies: Dysuria, Hematuria, Frequency Musculoskeletal: Denies: Back pain, Extremity Pain Skin: Denies: Rash, Wounds Neurological: Reports: Headache, Weakness. Denies: Numbness Physical Exam Vital Signs/Narrative: Vital Signs Temp Pulse Resp BP Pulse Ox 10/15/19 22:27 99.2 F H 89 18 206/110 H 95 10/15/19 22:24 99.2 F H 89 18 206/110 H 95 Inital Vital Signs reviewed: Yes - Hypertension noted General: Well nourished, Well developed, No Acute Distress Head: Normocephalic, Atraumatic Eyes: Perrl, EOMI ENT: Moist mucous membranes, No rhinorrhea Neck: Supple, Nontender Cardiovascular: Regular rate, Regular rhythm, No murmurs Respiratory: No distress, CTA bilaterally, Chest nontender Abdomen: Soft, Nontender, Nondistended, Normal bowel sounds Back: Nontender, Normal Inspection Extremities: Nontender, No edema Skin: Normal color, No rash Neurological: Alert, Oriented x3, Cranial nerves II-XII grossly intact, Normal Strength, Normal Sensation, - - Patient initially had more strength in her right lower extremity but then developed some weakness which gave her a NIH of 1. The rest of her NIH stroke scale was negative. Later in her stay 5 minutes later she had normal strength in her right lower extremity on NIH stroke scale exam. Psychological: Normal affect, Normal Mood Diagnostic/Tx/Re-eval - Medical Decision Making Stroke work-up obtained. Patient also given a dose of Toradol for her headache. She was also given labetalol for her significant hypertension. EKG shows sinus rhythm at a rate of 84 with no ischemia. Blood pressures come down to 186/82. She still has headache after Toradol. CT head negative. Lab work shows no acute abnormalities. Suspect the patient has had a stroke causing her symptoms. Not a candidate for TPA. Will be admitted for further evaluation and treatment. ED Disposition - Plan for ED Patient: Disposition: Acute Care Hospital [facility] Diagnosis: Stroke, Hypertensive emergency
[2019-10-15 23:11] VITALS: BP 221/93; PULSE 81; RESP 14; O2SAT 95
[2019-10-15 23:16] VITALS: BP 221/93; PULSE 81; RESP 149; O2SAT 95
[2019-10-15 23:16] LABS: Absolute Lymphocyte Count 1.61 X10^3/uL (0.83-4.51); Absolute Neutrophil Count 4.1 X10^3/uL (2.0-7.7); Basophil# 0.02 X10^3/uL; Basophil% 0.3 % (0-1); Eosinophil# 0.17 X10^3/uL; Eosinophils% 2.6 % (0-5); Hematocrit 36.5 % (37-47); Hemoglobin 12.3 g/dL (12.0-15.0); Lymphocyte # 1.61 X10^3/ul (4.0); Lymphocyte % 24.7 % (19-41); Mean Corp Hgb Conc 33.7 g/dL (32-36); Mean Corpuscular Hgb 33.8 pg (27.0-32.0); Mean Corpuscular Volume 100.3 fL (81-99); Mean Platelet Vol. 10.1 fl (6.2-12.0); Monocyte# 0.55 X10^3/uL; Monocyte% 8.4 % (0-10); NRBC Flagged by Analyzer 0 % (0-5); Neutrophil # 4.14 X10^3/uL (2.7-7.7); Neutrophil % 63.7 % (47-70); Platelet Count 221 K/mm3 (150-450); RBC Distribution Width CV 13.7 % (11.6-14.6); Red Blood Count 3.64 M/mm3 (4.2-5.4); White Blood Count 6.5 K/mm3 (4.4-11.0)
[2019-10-15 23:29] LABS: International Normalized Ratio 0.9; Partial Thromboplast Time 29.7 Seconds (24.1-36.2); Prothrombin Time (Protime)PT. 12.2 SECONDS (11.7-14.9)
[2019-10-15 23:30] VITALS: BP 217/94; PULSE 85; RESP 13; O2SAT 93
[2019-10-15 23:31] LABS: Anion Gap 6 (5-15); BUN 25 mg/dL (7-18); BUN/Creat Ratio 17.1 RATIO (10-20); Chloride 111 mmol/L (98-107); Creatinine, Serum 1.46 mg/dL (0.55-1.02); EST Glomerular Filtration Rate 36 mL/min (>60); Est Glom Filt Rate - Afr Amer 44 mL/min (>60); Estimated Creatinine Clearance 24.15 ml/min; Glucose 106 mg/dL (74-106); Potassium 4.3 mmol/L (3.5-5.1); Sodium Level 144 mmol/L (136-145)
[2019-10-15] MEDS: Ketorolac 15 MG/ML Vial IV (23:40)
[2019-10-16] VITALS (35 sets, daily range): BP systolic 128–222; BP diastolic 58–99; PULSE 63–91; RESP 10–31; TEMP 36.4–36.9; O2SAT 92–100; BMI 25.5; BMI 29.1
--- NOTE | 2019-10-16 00:56 | HP.PCM_ITS ---
Problem List (1) Stroke Status: Suspected (2) Hypertensive emergency Status: Acute (3) HTN (hypertension) Status: Chronic Qualifiers: (4) Hypothyroidism Status: Chronic Qualifiers: (5) History of breast cancer Status: Chronic Comment: R Breast CA s/p lumpectomy and radiation. (6) Hyperlipidemia Status: Chronic (7) Microscopic colitis Status: Chronic (8) Vitamin D deficiency Status: Chronic History of Present Illness Date of Admission: 10/16/19 Chief Complaint: Headache, slurred speech, difficulty walking. The patient is a 84 year old F patient with past medical history as mentioned above presented to the emergency room because of difficulty walking and slurred speech. Patient mentioned that her symptoms started when she was in the shower, started having headache, throbbing headache, generalized and she got out of the shower and having difficulty walking. She mentioned that both of her legs were weak and she walked with very short steps. Patient stated that she tried to take her medications but she could not pick them up. She called her who was downstairs and mentioned that patient was having trouble speaking with difficulty finding words. The mentioned that the patient has been having issues remembering things over the last week which is very unusual to her. Reportedly, patient had minimal right lower extremity weakness upon arrival to ER. Her NIH stroke scale in the ED was 1. Acute stroke alert called and patient went for stat CT scan brain that showed no acute infarct or hemorrhage. Tele-neurology consulted, patient was evaluated and after discussion with the family, they decided to not give TPA after being informed about complications and side effects. Initially, blood pressure was highly elevated, it was up to 221 systolic and 110 diastolic. Her other vital signs were stable. Routine blood work was remarkable for BUN of 25 and creatinine of 1.46. EKG revealed normal sinus rhythm without evidence of acute segment changes or cardiac arrhythmias. Troponin is negative. Chest x-ray showed no acute findings. CT scan brain showed no acute infarct or hemorrhage. She is being admitted for hypertensive emergency and probable stroke. Past Medical History Past Medical History (Chronic Problems): Chronic Problems HTN (hypertension) (Chronic) Hypothyroidism (Chronic) History of breast cancer (Chronic) R Breast CA s/p lumpectomy and radiation. Hyperlipidemia (Chronic) Microscopic colitis (Chronic) Vitamin D deficiency (Chronic) Allergic rhinitis (Chronic) Pain in right hip (Chronic) Allergies iron Allergy (Verified 10/15/19 22:32) Unknown pentazocine [From Talwin] Allergy (Verified 10/15/19 22:32) Other scopolamine Allergy (Verified 10/15/19 22:32) Other Home Medications: Ambulatory Orders Medication Instructions Recorded Aspirin [Aspirin, Baby] 81 mg PO DAILY@0800 01/18/18 Levothyroxine [Synthroid] 88 mcg PO DAILY 01/18/18 Acetaminophen [Tylenol] 1,000 mg PO Q8 tablet 01/21/18 Biotin 1 tab DAILY 10/16/19 Budesonide [Budesonide EC] 1 cap TID 10/16/19 Cholecalciferol (Vitamin D3) 25 mcg PO DAILY 10/16/19 [Vitamin D3] Gabapentin [Neurontin] 200 mg PO QHS 10/16/19 Hydrochlorothiazide [Hctz] 12.5 mg PO DAILY 10/16/19 Labetalol [Trandate (Beta Shasta)] 100 mg PO BID 10/16/19 Melatonin 5 mg PO QHS 10/16/19 Minoxidil 0.25 mg DAILY 10/16/19 Valsartan [Diovan] 160 mg PO DAILY 10/16/19 Surgical History: appendectomy, hysterectomy, - - Right breast lumpectomy, vein stripping of the leg Psychiatric History: No pertinent psych hx 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 Denies: Anorexia, Chills, Fever Eyes: Reports: Blurred vision. Denies: Double vision, Drainage, Redness HEENT: Reports: Head Aches. Denies: Difficulty Hearing, Ear Pain, Eye Pain, Nasal Congestion, Sore Throat Cardiovascular: Denies: Chest Pain, Chest Pressure, Chest Tightness, Palpitations, Syncope Respiratory: Denies: Cough, Hemoptysis, Pleuritic Pain, Shortness of Breath, Sputum production, Wheezing Gastrointestinal: Denies: Abdominal Pain, Constipation, Diarrhea, Nausea, Vomiting Genitourinary: Denies: Dysuria, Frequency, Hematuria Musculoskeletal: Denies: Arm Pain, Back Pain, Foot Pain Skin: Denies: Dryness, Rash Neurological: Reports: Change in Speech, Slurred speech, Confusion, Headaches, Incoordination. Denies: Balance problems, Focal weakness Psychiatric: Denies: Anxiety, Depression Endocrine: Denies: Change in Body Habitus, Polydipsia, Polyuria VTE Information - Inpt Only VTE Present on Admission: No VTE Mechan Device Prophylaxis: None VTE Pharm Prophylaxis ordered?: Yes Patient Problems: Active and Suspected Problems Stroke (Suspected) Hypertensive emergency (Acute) - Physical Exam Vitals/I&O's: Vital Signs Temp Pulse Resp BP Pulse Ox 98.5 F 80 13 206/88 H 97 10/16/19 00:47 10/16/19 00:47 10/16/19 00:47 10/16/19 00:47 10/16/19 00:47 Oxygen Flow Rate (L/min) 2 Oxygen Delivery Method Nasal Cannula Weight: 164 lb 3.91 oz Body Mass Index (BMI) 29.0 Finger Stick Blood Glucose 104 General: Alert, Oriented x3, Cooperative, No apparent distress HEENT: Atraumatic, PERRLA, EOMI, Normocephalic Oral: Moist Mucosa, No Gingival or Mucosal Lesions/ Ulcerations Neck: Supple, No JVD, Negative Carotid Bruits, Trachea Midline, Thyroid Normal Size and Texture Lungs: Clear to auscultation, Normal air movement, No rhonchi, No wheeze, No rales Cardiovascular: Regular rate, Regular Rhythm, Normal S1, Normal S2, PMI Normal Abdomen: Bowel Sounds Present, Soft, Non Tender, Non-Distended, No Hepato- splenomegaly Extremities: No clubbing, No cyanosis, No edema Skin: No rashes, No breakdown Lymphatic: No Cervical, Supraclavicular, or Inguinal Adenopathy Neurological: Cranial nerves II-XII grossly intact, Motor Exam 5/5 strength throughout, Sensory exam intact to light touch and pain Psych/Mental Status: Normal Affect, Appropriate, Alert and oriented to time, place, person, mood and affect Laboratory Results 10/15/19 22:25: WBC 6.5, RBC 3.64 L, Hgb 12.3, Hct 36.5 L, MCV 100.3 H, MCH 33.8 H, MCHC 33.7, RDW Std Deviation 50.0 H, RDW Coeff of Gabriella 13.7, Plt Count 221, MPV 10.1, Immature Gran % (Auto) 0.300, Neut % (Auto) 63.7, Lymph % (Auto) 24.7, Mower % (Auto) 8.4, Eos % (Auto) 2.6, Baso % (Auto) 0.3, Absolute Neuts (auto) 4.1, Absolute Lymphs (auto) 1.61, Nucleated RBC % 0 10/15/19 22:25: PT 12.2, INR 0.9, APTT 29.7 10/15/19 22:25: Sodium 144, Potassium 4.3, Chloride 111 H, Carbon Dioxide 27.0, Anion Gap 6, BUN 25 H, Creatinine 1.46 H, Estim Creat Clear Calc 24.15, Est GFR (MDRD) Af Amer 44 L, Est GFR (MDRD) Non-Af 36 L, BUN/Creatinine Ratio 17.1, Glucose 106, Calcium 9.0, Troponin I < 0.015 Clinical Impression(s) from Imaging Studies Brain CT 10/15/19 22:12 IMPRESSION: No acute intracranial abnormality. Chronic changes as above. ASPECT 10. Individualized dose optimization techniques were used for this CT. at 2227 Reported and signed by: Josue Galarza MD Electronically Signed: Josue Galarza MD at 22:25 EST Tel , Service support , ADDENDUM: 10/16/19 0000 IMPRESSION: No acute intracranial abnormality. Chronic changes as above. ASPECT 10. Individualized dose optimization techniques were used for this CT. at 2227 Reported and signed by: Josue Galarza MD N.B. : The above information has been verbally conveyed by Josue Galarza MD to Dr. Marshall Corrales MD, on 10/15/2019 23:53:31 (ET). Electronically Signed: Josue Galarza MD at 22:25 EST Tel , Service support , Chest X-Ray 10/15/19 22:46 IMPRESSION: Chronic interestitial changes. No radiographic evidence of acute cardiopulmonary disease. at 0009 Reported and signed by: Josue Galarza MD Electronically Signed: Josue Galarza MD at 0:08 EST Tel , Service support , Current Medications Nicardipine HCl 25 mg/ Sodium (Chloride) 250 mls @ 50 mls/hr CONT INF .Q5H DINORAH; Protocol Labetalol HCl (Trandate) 20 mg IV X1 PRN PRN Reason: BLOOD PRESSURE Last Admin: 10/16/19 00:09 Dose: 20 mg Documented by: Assessment/Plan All Active Problems Hypertensive emergency (Acute) This is an 84 years old female patient presented to the emergency room because of headache, trouble walking and slurred speech as well as 1 week history of memory issues, found to have highly elevated blood pressure with systolic of more than 220 and she is being admitted for hypertensive emergency with suspected stroke. #1 hypertensive emergency: Highest blood pressure on the ED was 221/93, systolic went up to 110. CT scan brain without acute stroke or hemorrhage. EKG without acute ischemic findings. Troponin is negative. Patient was given 1 dose of IV labetalol, blood pressure slightly improved but started to go up again up to 216 systolic. Patient was started on IV nicardipine drip. Plan: Admit to ICU, critical care monitoring, continue IV nicardipine drip, IV fluids for hydration, IV morphine PRN, IV antiemetics, critical care consult, continue HCTZ, p.o. labetalol and Diovan. #2 suspected acute stroke: Acute stroke alert called, NIH stroke scale was 1 upon arrival. Patient was evaluated by tele-neurology, patient's family declined TPA after discussion with neurology. CT scan brain showed no acute findings. Her symptoms improved and when I saw the patient, she had no focal deficit. Plan: NIH stroke scale, aspirin, Lipitor, MRI brain, 2D echocardiogram, bilateral total Doppler. #3 hypertension: Blood pressure is high elevated, patient is on IV nicardipine drip. Plan to continue HCTZ, p.o. labetalol and Diovan. #4 stage III continue disease: Baseline creatinine is been around 1.1 to 1.3 mg/dL. Admission creatinine is 1.46, close to baseline. #5 history of breast cancer status post lumpectomy and radiation: Stable, in remission. #6 hypothyroidism: Continue levothyroxine. #7 microscopic colitis: Stable, continue budesonide. #8 DVT prophylaxis: Subcu heparin. This note was generated with [employer] dictation software. It may contain incorrect words, spelling, and punctuation that were not noted in checking the note before signing. Code Visit Inpatient E&M: 04365 Init Hosp L3
--- NOTE | 2019-10-16 01:27 | ECHOD_ITS ---
Reason For Study: TIA/CVA Procedure This was a 2D Doppler, Color Flow transthoracic echocardiogram. Exam performed portable in patient room. Left Ventricle Normal LV size. Left ventricular systolic function is normal. The estimated ejection fraction is 65 %. Stage 1 diastolic dysfunction. No regional wall motion abnormalities noted. Right Ventricle Normal RV size. Normal systolic function. Atria Normal left atrium. Normal right atrium. Bubble contrast study negative for right to left interatrial shunt. Mitral Valve Normal mitral valve. Tricuspid Valve Normal tricuspid valve. Mild (1+) tricuspid valve insufficiency. Pulmonary artery systolic pressure is 38 mmHg. Aortic Valve Normal aortic valve. Pulmonic Valve Normal pulmonic valve. Great Vessels Normal aortic root. The pulmonary artery is normal size. Normal inferior vena cava. Pericardium/Pleural No pericardial effusion. Medication Performed a rapid injection of agitated mix of 9 cc saline and 1cc air to assess for atrial septal defect. MMode/2D Measurements & Calculations LVIDd: 3.6 cm IVSd: 1.1 cm Ao root diam: 3.0 cm LVIDs: 2.5 cm LVPWd: 1.2 cm LA dimension: 2.9 cm RVDd: 3.1 cm FS: 29.2 % LAV(MOD-bp): 33.4 ml LA A4 area: 14.4 cm2 RA A4 area: 14.6 cm2 LAV(MOD-bp) Indexed: 18.8 ml/m2 LAV(MOD-sp2): 29.0 ml LAV(MOD-sp4): 35.7 ml Doppler Measurements & Calculations MV E max marshal: 67.4 cm/sec Lat Peak E' Marshal: 6.1 cm/sec Med Peak E' Marshal: 5.9 cm/sec MV A max marshal: 112.7 cm/sec E/E' lat: 11.1 E/E' med: 11.5 MV E/A: 0.60 Ao V2 max: 117.7 cm/sec LV V1 max: 91.4 cm/sec PA V2 max: 59.9 cm/sec Ao max P.5 mmHg LV V1 max P.3 mmHg Ao V2 mean: 83.1 cm/sec Ao mean P.0 mmHg Ao V2 VTI: 25.7 cm TR max marshal: 289.1 cm/sec TR max P.4 mmHg Interpretation Summary Normal LV size. Left ventricular systolic function is normal. The estimated ejection fraction is 65 %. Stage 1 diastolic dysfunction. Bubble contrast study negative for right to left interatrial shunt. Mild (1+) tricuspid valve insufficiency. Ordering Physician: Gabrielle Winkler Referring Physician: Christin Aly Performed By: Alberto Garland RCS
--- NOTE | 2019-10-16 01:27 | CDU_ITS ---
Reason For Study: CVA Rt. Velocities/BP Lt. Velocities/BP Prox CCA 91.7/20.0 cm/sec. Prox CCA 104.3/19.5 cm/sec. Mid CCA 70.3/18.1 cm/sec. Mid CCA 82.2/17.1 cm/sec. Dist CCA 70.3/14.2 cm/sec. Dist CCA 80.9/15.8 cm/sec. Prox ICA 58.6/15.5 cm/sec. Prox ICA 56.4/15.8 cm/sec. Mid ICA 70.3/22.0 cm/sec. Mid ICA 77.3/20.8 cm/sec. Dist ICA 88.6/24.6 cm/sec. Dist ICA 106.4/29.0 cm/sec. Rt. ICA/CCA = 88.6/91.7=1.0. Lt. ICA/CCA = 106.4/104.3=1.0. Prox ECA 79.4/12.9 cm/sec. Prox ECA 101.8/10.9 cm/sec. Rt. Vert. 57.3/15.5 cm/sec. Lt. Vert. 57.2/15.5 cm/sec. Right Extracranial There is intimal thickening but no significant atherosclerotic plaque noted in the right common carotid artery. There is intimal thickening but no significant atherosclerotic plaque noted in the right internal carotid artery. There is no significant atherosclerotic plaque noted in the right external carotid artery. Antegrade flow is noted in the right vertebral artery. Left Extracranial There is intimal thickening but no significant atherosclerotic plaque noted in the left common carotid artery. There is heterogeneous, smooth atherosclerotic plaque noted in the left internal carotid artery. There is heterogeneous, irregular atherosclerotic plaque noted in the left external carotid artery. Antegrade flow is noted in the left vertebral artery. There is heterogeneous, irregular atherosclerotic plaque noted in the left bulb. Procedure Carotid Duplex 27389. Exam performed portable in ICU/CCU. Interpretation Summary No hemodynamically significant plaque or stenosis of bilateral extracranial internal carotid arteries with <50% stenosis bilaterally <50% stenosis bilateral external carotids Patent, antegrade, <50% stenosis bilateral vertebrals Ordering Physician: Gabrielle Winkler Referring Physician: Christin Aly Performed By: Sarah Gates, JOSE DANIEL, RVT
--- NOTE | 2019-10-16 01:27 | MRI_ITS ---
STUDY: MRI BRAIN WITHOUT CONTRAST REASON FOR EXAM: Female, 84 years old. slurred speech, memory issues, difficulty walking TECHNIQUE: Standardized multiplanar fat and water weighted pulse sequences were obtained. COMPARISON: CT of 10/15/2019 FINDINGS: There is mild cerebral atrophy with widening of the extra-axial spaces and ventricular dilatation. There are a limited number of small white matter hyperintensities, distributed throughout the deep white matter tracts of the cerebral hemispheres, consistent with mild chronic white matter ischemic changes. There is no evidence for recent intracranial ischemia or other cause of cytotoxic edema on diffusion weighted imaging (DWI). Normal T2* images of the brain without demonstrated susceptibility artifact. There is no demonstrated hemosiderin stain. Normal bilateral basal ganglia. Normal thalami. There is no extra-axial fluid accumulation. Normal flow voids within the major intracranial circulation suggesting patency by spin echo criteria. Normal sella turcica, pituitary gland, infundibular stalk, optic chiasm and hypothalamus. Normal tectal plate and pineal gland. Normal midbrain, villa and medulla. Normal cerebellum. Normal basal cisterns. Normal bilateral temporal bones. Normal bilateral internal auditory canals. There are bilateral ocular lens implants with otherwise normal intraorbital contents. Normal visualized paranasal sinuses. Normal calvarium and skull base. Normal visualized soft tissue structures. Normal visualized upper cervical spine. MRI/Brain without Contrast IMPRESSION: Involutional changes of the brain, as described above. No acute infarct. Electronically Signed: Julián North MD at 13:14 EST Tel , Service support ,
[2019-10-16] MEDS: 0.9% Normal Saline 1,000 ML 75 ML IV ×2 (02:13→15:24)
[2019-10-16] MEDS: Morphine 2 MG/ML Syringe IV ×2 (02:13→23:52)
[2019-10-16 04:55] LABS: Anion Gap 3 (5-15); BUN 25 mg/dL (7-18); BUN/Creat Ratio 21.2 RATIO (10-20); Chloride 111 mmol/L (98-107); Cholesterol 202 mg/dL (200); Creatinine, Serum 1.18 mg/dL (0.55-1.02); EST Glomerular Filtration Rate 47 mL/min (>60); Est Glom Filt Rate - Afr Amer 56 mL/min (>60); Estimated Creatinine Clearance 33.82 ml/min; Glucose 113 mg/dL (74-106); High Density Lipoprotein 84 mg/dL; Potassium 4.6 mmol/L (3.5-5.1); Sodium Level 143 mmol/L (136-145); Triglycerides 80 mg/dL; Very Low Density Lipoprotein 16 mg/dL (5-40)
[2019-10-16 04:58] LABS: Absolute Lymphocyte Count 1.23 X10^3/uL (0.83-4.51); Absolute Neutrophil Count 3.6 X10^3/uL (2.0-7.7); Basophil# 0.02 X10^3/uL; Basophil% 0.4 % (0-1); Eosinophil# 0.11 X10^3/uL; Hemoglobin 10.5 g/dL (12.0-15.0); Lymphocyte # 1.23 X10^3/ul (4.0); Lymphocyte % 22.8 % (19-41); Mean Corp Hgb Conc 32.8 g/dL (32-36); Mean Corpuscular Hgb 32.8 pg (27.0-32.0); Monocyte# 0.46 X10^3/uL; Monocyte% 8.5 % (0-10); NRBC Flagged by Analyzer 0 % (0-5); Neutrophil # 3.57 X10^3/uL (2.7-7.7); Neutrophil % 66.1 % (47-70); Platelet Count 202 K/mm3 (150-450); RBC Distribution Width CV 13.7 % (11.6-14.6); White Blood Count 5.4 K/mm3 (4.4-11.0)
--- NOTE | 2019-10-16 06:40 | CON.PCM_ITS ---
Reason for Consult Date of Consultation: 10/16/19 Reason for Consultation: Hypertensive Emergency History of Present Illness: The patient is an 84-year-old female, with a history as outlined below, who presented to the emergency department on October 15 with complaints of a headache and gait instability. The patient reports that over the last 2 weeks she has been intermittently experiencing what sounds to be like episodes of ataxia. The patient does have a known history of hypertension, which has been managed chronically by her primary care provider located in [place]. She is currently on multiple antihypertensive medications in her home environment and denies having missed any recent doses. She has not had any recent medication or dosage changes. She reports that her blood pressure is normally controlled at her baseline. She is a lifelong non-smoker. On presentation to the emergency department, the patient was noted to be hypertensive with a blood pressure of 206/110 mmHg. She was, nevertheless, maintaining appropriate oxygen saturations on room air. Initial laboratory evaluation revealed no evidence of a leukocytosis. Coagulation profile was within normal limits. Creatinine was elevated to 1.46. Troponin was negative. CT head revealed no acute intracranial abnormality. Plain film chest x-ray revealed no acute cardiopulmonary process. The patient only had a documented NH score of 1 in the emergency department and was not a candidate for TPA. The patient was subsequently placed on a Cardene infusion and admitted to the medical intensive care unit for further management. Overnight, the patient's aphasia and lower extremity drift resolved. Her Carde ne was able to be discontinued at 0600 hrs. this morning. Past Medical History Past Medical History (Chronic Problems): Chronic Problems HTN (hypertension) (Chronic) Hypothyroidism (Chronic) History of breast cancer (Chronic) R Breast CA s/p lumpectomy and radiation. Hyperlipidemia (Chronic) Microscopic colitis (Chronic) Vitamin D deficiency (Chronic) Allergic rhinitis (Chronic) Pain in right hip (Chronic) Allergies iron Allergy (Verified 10/15/19 22:32) Unknown pentazocine [From Talwin] Allergy (Verified 10/15/19 22:32) Other scopolamine Allergy (Verified 10/15/19 22:32) Other Home Medications: Ambulatory Orders Medication Instructions Recorded Aspirin [Aspirin, Baby] 81 mg PO DAILY@0800 01/18/18 Levothyroxine [Synthroid] 88 mcg PO DAILY 01/18/18 Acetaminophen [Tylenol] 1,000 mg PO Q8 tablet 01/21/18 Biotin 1 tab DAILY 10/16/19 Budesonide [Budesonide EC] 1 cap TID 10/16/19 Cholecalciferol (Vitamin D3) 25 mcg PO DAILY 10/16/19 [Vitamin D3] Gabapentin [Neurontin] 200 mg PO QHS 10/16/19 Hydrochlorothiazide [Hctz] 12.5 mg PO DAILY 10/16/19 Labetalol [Trandate (Beta [place])] 100 mg PO BID 10/16/19 Melatonin 5 mg PO QHS 10/16/19 Minoxidil 0.25 mg DAILY 10/16/19 Valsartan [Diovan] 160 mg PO DAILY 10/16/19 Surgical History: appendectomy, hysterectomy, - - Right breast lumpectomy, vein stripping of the leg Psychiatric History: No pertinent psych hx SECURITY DISPATCHER History: No pertinent SECURITY DISPATCHER history Lives: Spouse/ Significant Other Smoking Status: Former smoker Tobacco Use: Non-smoker Alcohol: None Drugs: None - *Family History Maternal History Items: Heart Disease, Hypertension Paternal History Items: Heart Disease, Hypertension Review of Systems Constitutional: Denies: Chills, Fever Eyes: Denies: Blurred vision, Double vision HEENT: Denies: Head Aches, Sinus Congestion, Sinus Drainage Cardiovascular: Denies: Chest Pain, Palpitations Respiratory: Denies: Cough, Shortness of breath at rest, Sputum production Gastrointestinal: Denies: Abdominal Pain, Nausea, Vomiting Genitourinary: Denies: Dysuria Musculoskeletal: Denies: Joint Pain, Joint Tenderness Skin: Denies: Rash, Wounds Neurological: Reports: Balance problems, Focal weakness, Incoordination Psychiatric: Denies: Anxiety, Depression, Homicidal Ideations, Suicidal Ideations Hematologic/ Lymphatic: Denies: Easy Bruising, Easy Bleeding Patient Problems: Active and Suspected Problems Stroke (Suspected) Hypertensive emergency (Acute) Objective: The patient's most recent lab work, culture data and imaging studies have all been personally reviewed. - Physical Exam Vitals/I&O's: Vital Signs Temp Pulse Resp BP Pulse Ox 98 F 72 11 L 137/70 H 92 10/16/19 04:00 10/16/19 06:30 10/16/19 06:30 10/16/19 06:30 10/16/19 06:30 Oxygen Flow Rate (L/min) 2 Oxygen Delivery Method Room Air Weight: 158 lb 4.67 oz Body Mass Index (BMI) 25.5 Finger Stick Blood Glucose 104 Intake and Output for Last 24 Hours 10/14/19 10/15/19 10/16/19 23:59 23:59 23:59 Intake Total 271.66 / 271.66 Output Total 300 / 300 Balance -28.34 / -28.34 General: Alert, Oriented x3, Cooperative, No apparent distress HEENT: Atraumatic, PERRLA, Normocephalic Oral: No Gingival or Mucosal Lesions/ Ulcerations Neck: Supple, No Nodes, Trachea Midline Lungs: Normal air movement, No rhonchi, No wheeze, No rales Cardiovascular: Regular rate, Regular Rhythm, Normal S1, Normal S2, No murmurs Abdomen: Bowel Sounds Present, Soft, Non Tender Extremities: No clubbing, No cyanosis, Edema Skin: No breakdown Musculoskeletal: No Tenderness to Palpation of Joints or Extremities Lymphatic: No Cervical, Supraclavicular, or Inguinal Adenopathy Neurological: Neuro grossly intact Psych/Mental Status: Normal Affect, Appropriate Labs (Last 48 Hours) 10/15/19 10/15/19 10/15/19 22:25 22:25 22:25 WBC 6.5 RBC 3.64 L Hgb 12.3 Hct 36.5 L MCV 100.3 H MCH 33.8 H MCHC 33.7 RDW Std Deviation 50.0 H RDW Coeff of Gabriella 13.7 Plt Count 221 MPV 10.1 Immature Gran % (Auto) 0.300 Neut % (Auto) 63.7 Lymph % (Auto) 24.7 [place] % (Auto) 8.4 Eos % (Auto) 2.6 Baso % (Auto) 0.3 Absolute Neuts (auto) 4.1 Absolute Lymphs (auto) 1.61 Nucleated RBC % 0 PT 12.2 INR 0.9 APTT 29.7 Sodium 144 Potassium 4.3 Chloride 111 H Carbon Dioxide 27.0 Anion Gap 6 BUN 25 H Creatinine 1.46 H Estim Creat Clear Calc 24.15 Est GFR (MDRD) Af Amer 44 L Est GFR (MDRD) Non-Af 36 L BUN/Creatinine Ratio 17.1 Glucose 106 Calcium 9.0 Troponin I < 0.015 Triglycerides Cholesterol LDL Cholesterol VLDL Cholesterol HDL Cholesterol 10/16/19 10/16/19 04:25 04:25 WBC 5.4 RBC 3.20 L Hgb 10.5 L Hct 32.0 L MCV 100.0 H MCH 32.8 H MCHC 32.8 RDW Std Deviation 50.0 H RDW Coeff of Gabriella 13.7 Plt Count 202 MPV 10.0 Immature Gran % (Auto) 0.200 Neut % (Auto) 66.1 Lymph % (Auto) 22.8 [place] % (Auto) 8.5 Eos % (Auto) 2.0 Baso % (Auto) 0.4 Absolute Neuts (auto) 3.6 Absolute Lymphs (auto) 1.23 Nucleated RBC % 0 PT INR APTT Sodium 143 Potassium 4.6 Chloride 111 H Carbon Dioxide 29.0 Anion Gap 3 L BUN 25 H Creatinine 1.18 H Estim Creat Clear Calc 33.82 Est GFR (MDRD) Af Amer 56 L Est GFR (MDRD) Non-Af 47 L BUN/Creatinine Ratio 21.2 H Glucose 113 H Calcium 8.0 L Troponin I Triglycerides 80 Cholesterol 202 H LDL Cholesterol 102 VLDL Cholesterol 16 HDL Cholesterol 84 Clinical Impression(s) from Imaging Studies Brain CT 10/15/19 22:12 IMPRESSION: No acute intracranial abnormality. Chronic changes as above. ASPECT 10. Individualized dose optimization techniques were used for this CT. at 6321 Reported and signed by: Josue Galarza MD Electronically Signed: Josue Galarza MD at 22:25 EST Tel , Service support , ADDENDUM: 10/16/19 0000 IMPRESSION: No acute intracranial abnormality. Chronic changes as above. ASPECT 10. Individualized dose optimization techniques were used for this CT. at 2220 Reported and signed by: Josue Galarza MD N.B. : The above information has been verbally conveyed by Josue Galarza MD to Dr. Marshall Corrales MD, on 10/15/2019 23:53:31 (ET). Electronically Signed: Josue Galarza MD at 22:25 EST Tel , Service support , Chest X-Ray 10/15/19 22:46 IMPRESSION: Chronic interestitial changes. No radiographic evidence of acute cardiopulmonary disease. at 0009 Reported and signed by: Josue Galarza MD Electronically Signed: Josue Galarza MD at 0:08 EST Tel , Service support , Current Medications Acetaminophen (Tylenol) 650 mg PO Q6H PRN PRN PRN Reason: Pain Score 1-5/Temp > 100.7 F Aspirin (Aspirin, Baby) 81 mg PO DAILY@0800 [facility] Atorvastatin Calcium (Lipitor) 80 mg PO QHS [facility] Budesonide (Budesonide Ec) 9 mg PO DAILY [facility] Gabapentin (Neurontin) 200 mg PO QHS [facility] Heparin Sodium (Porcine) (Heparin Na) 5,000 unit SC Q12 [facility] Hydrochlorothiazide () 12.5 mg PO DAILY [facility] Nicardipine HCl 25 mg/ Sodium (Chloride) 250 mls @ 50 mls/hr CONT INF .Q5H [facility]; Protocol Last Titration: 10/16/19 06:30 Dose: 0 mg/hr, 0 mls/hr Documented by: Sodium Chloride () 1,000 mls @ 75 mls/hr IV .[id number] [facility] Last Admin: 10/16/19 02:13 Dose: 75 mls/hr Documented by: Sodium Chloride () 250 mls @ 15 mls/hr IV .[id number] PRN PRN Reason: Saline Flush Sodium Chloride () 250 mls @ 15 mls/hr IV .[id number] PRN PRN Reason: Additional IVPB Infusion Sodium Chloride () 250 mls @ 15 mls/hr IV .[id number] PRN PRN Reason: Saline Flush Sodium Chloride () 250 mls @ 15 mls/hr IV .[id number] PRN PRN Reason: Additional IVPB Infusion Labetalol HCl (Trandate) 100 mg PO BID [facility] Levothyroxine Sodium (Synthroid) 88 mcg PO DAILY@0600 [facility] Losartan Potassium (Cozaar) 50 mg PO DAILY [facility] Morphine Sulfate () 1 - 2 mg IV Q3H PRN PRN PRN Reason: Pain Score 6-10/10 Last Admin: 10/16/19 02:13 Dose: 2 mg Documented by: Ondansetron HCl (Zofran) 4 mg IV Q8H PRN PRN PRN Reason: NAUSEA/VOMITING Sodium Chloride () 10 - 40 ml IV UD PRN PRN Reason: SALINE FLUSH Zolpidem Tartrate (Ambien (Generic)) 5 mg PO QHS PRN PRN PRN Reason: INSOMNIA Assessment/Plan Active and Suspected Problems Stroke (Suspected) Hypertensive emergency (Acute) RECOMMENDATIONS: 1. Restart home antihypertensive regimen. 2. Renal artery duplex study. 3. MRI brain today. Consider reconsultation to neurology following completion of head imaging. 4. Echocardiogram pending. 5. Physical therapy evaluation. IMPRESSIONS: 1. Hypertensive emergency The patient's hemodynamics have improved with the use of Cardene. This has since been discontinued. Plan to resume home antihypertensive regimen. A secondary work-up for the patient's hypertension will also be undertaken with renal duplex study. 2. Suspected stroke The patient initially presented with ataxia and aphasia. However, initial CT was unremarkable. There are plans to complete an MRI today. Recommend follow- up telemetry stroke consultation once head imaging has been completed. 3. Chronic kidney disease/hypothyroidism/history of breast cancer Complicates care, management, recovery and prognosis. Physical therapy evaluation today. Okay to advance diet from my perspective. This note was generated with [employer] dictation software. It may contain incorrect words, spelling, and punctuation that were not noted in checking the note before signing. Code Visit Inpatient E&M: 04745 Init Hosp L3
[2019-10-16] MEDS: Levothyroxine 88 MCG Tablet PO (06:56)
--- NOTE | 2019-10-16 07:31 | PCM.PROGNOTE ---
Patient Problems: Active and Suspected Problems Stroke (Suspected) Hypertensive emergency (Acute) Subjective: CC: Hypertension Patient is an 84-year-old lady admitted with severe headache, slurred speech disorientation and some ataxia. Patient was found to have markedly elevated blood pressure with systolic of 221/93 admitted to the intensive care unit as a case of acute hypertensive emergency started on Cardene drip Patient scheduled to undergo subsequent evaluation with an MRI of the head and neck as well as renal duplex Objective: GENERAL: cooperative HEENT: Atraumatic; EYES; Anicteric, Normal Conjunctiva NECK; supple, normal thyroid, RESPIRATORY: Diminished to auscultation CARDIOVASCULAR: Regular S1 S2, GI: soft, normoactive bowel sounds, : No Renal angle tenderness; EXTREMITIES: No edema, no clubbing, MUSCULOSKELETAL: no muscle waisting NEURO: Awake; no lateralizing signs. SKIN: No Rash PSYCH; Flat affect - Physical Exam Vitals/I&O's: Vital Signs Temp Pulse Resp BP Pulse Ox 98 F 73 13 128/67 H 93 10/16/19 04:00 10/16/19 06:45 10/16/19 06:45 10/16/19 06:45 10/16/19 06:45 Oxygen Flow Rate (L/min) 2 Oxygen Delivery Method Room Air Weight: 71.8 kg Body Mass Index (BMI) 25.5 Finger Stick Blood Glucose 104 Intake and Output for Last 24 Hours 10/14/19 10/15/19 10/16/19 23:59 23:59 23:59 Intake Total 271.66 / 271.66 Output Total 300 / 300 Balance -28.34 / -28.34 Laboratory Results 10/15/19 22:25: WBC 6.5, RBC 3.64 L, Hgb 12.3, Hct 36.5 L, MCV 100.3 H, MCH 33.8 H, MCHC 33.7, RDW Std Deviation 50.0 H, RDW Coeff of Gabriella 13.7, Plt Count 221, MPV 10.1, Immature Gran % (Auto) 0.300, Neut % (Auto) 63.7, Lymph % (Auto) 24.7, [place] % (Auto) 8.4, Eos % (Auto) 2.6, Baso % (Auto) 0.3, Absolute Neuts (auto) 4.1, Absolute Lymphs (auto) 1.61, Nucleated RBC % 0 12/29/19 22:25: PT 12.2, INR 0.9, APTT 29.7 10/15/19 22:25: Sodium 144, Potassium 4.3, Chloride 111 H, Carbon Dioxide 27.0, Anion Gap 6, BUN 25 H, Creatinine 1.46 H, Estim Creat Clear Calc 24.15, Est GFR (MDRD) Af Amer 44 L, Est GFR (MDRD) Non-Af 36 L, BUN/Creatinine Ratio 17.1, Glucose 106, Calcium 9.0, Troponin I < 0.015 10/16/19 04:25: WBC 5.4, RBC 3.20 L, Hgb 10.5 L, Hct 32.0 L, MCV 100.0 H, MCH 32.8 H, MCHC 32.8, RDW Std Deviation 50.0 H, RDW Coeff of Gabriella 13.7, Plt Count 202, MPV 10.0, Immature Gran % (Auto) 0.200, Neut % (Auto) 66.1, Lymph % (Auto) 22.8, [place] % (Auto) 8.5, Eos % (Auto) 2.0, Baso % (Auto) 0.4, Absolute Neuts (auto) 3.6, Absolute Lymphs (auto) 1.23, Nucleated RBC % 0 10/16/19 04:25: Sodium 143, Potassium 4.6, Chloride 111 H, Carbon Dioxide 29.0, Anion Gap 3 L, BUN 25 H, Creatinine 1.18 H, Estim Creat Clear Calc 33.82, Est GFR (MDRD) Af Amer 56 L, Est GFR (MDRD) Non-Af 47 L, BUN/Creatinine Ratio 21.2 H, Glucose 113 H, Calcium 8.0 L, Triglycerides 80, Cholesterol 202 H, LDL Cholesterol 102, VLDL Cholesterol 16, HDL Cholesterol 84 Current Medications Acetaminophen (Tylenol) 650 mg PO Q6H PRN PRN PRN Reason: Pain Score 1-5/Temp > 100.7 F Aspirin (Aspirin, Baby) 81 mg PO DAILY@0800 [facility] Atorvastatin Calcium (Lipitor) 80 mg PO QHS [facility] Budesonide (Budesonide Ec) 9 mg PO DAILY [facility] Gabapentin (Neurontin) 200 mg PO QHS [facility] Heparin Sodium (Porcine) (Heparin Na) 5,000 unit SC Q12 [facility] Hydrochlorothiazide () 12.5 mg PO DAILY [facility] Nicardipine HCl 25 mg/ Sodium (Chloride) 250 mls @ 50 mls/hr CONT INF .Q5H [facility]; Protocol Last Titration: 10/16/19 06:45 Dose: 0 mg/hr, 0 mls/hr Documented by: Sodium Chloride () 1,000 mls @ 75 mls/hr IV .[id number] [facility] Last Admin: 10/16/19 02:13 Dose: 75 mls/hr Documented by: Sodium Chloride () 250 mls @ 15 mls/hr IV .[id number] PRN PRN Reason: Saline Flush Sodium Chloride () 250 mls @ 15 mls/hr IV .[id number] PRN PRN Reason: Additional IVPB Infusion Sodium Chloride () 250 mls @ 15 mls/hr IV .[id number] PRN PRN Reason: Saline Flush Sodium Chloride () 250 mls @ 15 mls/hr IV .[id number] PRN PRN Reason: Additional IVPB Infusion Labetalol HCl (Trandate) 100 mg PO BID [facility] Levothyroxine Sodium (Synthroid) 88 mcg PO DAILY@0600 [facility] Last Admin: 10/16/19 06:56 Dose: 88 mcg Documented by: Losartan Potassium (Cozaar) 50 mg PO DAILY [facility] Morphine Sulfate () 1 - 2 mg IV Q3H PRN PRN PRN Reason: Pain Score 6-10/10 Last Admin: 10/16/19 02:13 Dose: 2 mg Documented by: Ondansetron HCl (Zofran) 4 mg IV Q8H PRN PRN PRN Reason: NAUSEA/VOMITING Sodium Chloride () 10 - 40 ml IV UD PRN PRN Reason: SALINE FLUSH Zolpidem Tartrate (Ambien (Generic)) 5 mg PO QHS PRN PRN PRN Reason: INSOMNIA Medical Necessity - Tobacco Use Smoking Status: Former smoker Tobacco Use: Non-smoker Assessment/Plan All Active Problems Hypertensive emergency (Acute) Patient is an 84-year-old lady admitted with severe headache, slurred speech disorientation and some ataxia. Patient was found to have markedly elevated blood pressure with systolic of 221/93 admitted to the intensive care unit as a case of acute hypertensive emergency started on Cardene drip 1. Acute hypertensive emergency ?Patient admitted to the intensive care unit started on Cardene drip which is currently being titrated to keep systolic less than 140. Patient is on a number of multiple antihypertensives. With her blood pressure being markedly elevated plan is to rule out secondary causes. As part of evaluation ordered renal arterial duplex 2. Suspected CVA ?Patient had difficulty with speech with some ataxia. MRI of the head and neck ordered to rule out posterior circulation CVA. Patient is currently being monitored in ICU with [facility] patient's family had apparently declined TPA in the emergency department 3. Stage III chronic kidney disease ?Creatinine on admission was 1.46 did improve with rehydration 4. History of breast CA ?Status post lumpectomy and radiation currently remains in Remission 5. Hypothyroidism ~patient is on levothyroxine home dose continued 6. Microscopic colitis ~ Patient is on budesonide did continue 7. DVT prophylaxis SC Heparin Active Medications Acetaminophen (Tylenol) 650 mg PO Q6H PRN PRN PRN Reason: Pain Score 1-5/Temp > 100.7 F Aspirin (Aspirin, Baby) 81 mg PO DAILY@0800 [facility] Atorvastatin Calcium (Lipitor) 80 mg PO QHS [facility] Budesonide (Budesonide Ec) 9 mg PO DAILY [facility] Gabapentin (Neurontin) 200 mg PO QHS [facility] Heparin Sodium (Porcine) (Heparin Na) 5,000 unit SC Q12 [facility] Hydrochlorothiazide () 12.5 mg PO DAILY [facility] Sodium Chloride () 1,000 mls @ 75 mls/hr IV .[id number] [facility] Last Admin: 10/16/19 02:13 Dose: 75 mls/hr Documented by: Sodium Chloride () 250 mls @ 15 mls/hr IV .[id number] PRN PRN Reason: Saline Flush Sodium Chloride () 250 mls @ 15 mls/hr IV .[id number] PRN PRN Reason: Additional IVPB Infusion Sodium Chloride () 250 mls @ 15 mls/hr IV .[id number] PRN PRN Reason: Saline Flush Sodium Chloride () 250 mls @ 15 mls/hr IV .[id number] PRN PRN Reason: Additional IVPB Infusion Sodium Chloride () 250 mls @ 15 mls/hr IV .[id number] PRN PRN Reason: Saline Flush Sodium Chloride () 250 mls @ 15 mls/hr IV .[id number] PRN PRN Reason: Additional IVPB Infusion Labetalol HCl (Trandate) 100 mg PO BID [facility] Levothyroxine Sodium (Synthroid) 88 mcg PO DAILY@0600 [facility] Last Admin: 10/16/19 06:56 Dose: 88 mcg Documented by: Losartan Potassium (Cozaar) 50 mg PO DAILY [facility] Morphine Sulfate () 1 - 2 mg IV Q3H PRN PRN PRN Reason: Pain Score 6-10/10 Last Admin: 10/16/19 02:13 Dose: 2 mg Documented by: Ondansetron HCl (Zofran) 4 mg IV Q8H PRN PRN PRN Reason: NAUSEA/VOMITING Sodium Chloride () 10 - 40 ml IV UD PRN PRN Reason: SALINE FLUSH Sodium Chloride () 10 - 40 ml IV UD PRN PRN Reason: SALINE FLUSH Zolpidem Tartrate (Ambien (Generic)) 5 mg PO QHS PRN PRN PRN Reason: INSOMNIA Code Visit Inpatient E&M: 37285 Subs Hosp L3
--- NOTE | 2019-10-16 08:07 | RDU_ITS ---
Reason For Study: Hypertension Right Renal Artery Left Renal Artery Right renal artery ostium 131.5/17.3 Left renal artery ostium 78.1/16.7 RSV/EDV. PSV/EDV. Right renal artery proximal 127.1/13 Left renal artery proximal PSV/EDV PSV/EDV. 75.7/13 . Right renal artery mid 171/21.7 Left renal artery mid 79.3/11.8 PSV/EDV. PSV/EDV . Right renal artery distal 157.8/17.9 Left renal artery distal 78.1/13 PSV/EDV. PSV/EDV. Right RAR 2.45. Left RAR 1.13. Right Renal Parenchyma Left Renal Parenchyma Upper Pole Medula 23.4/6.4 PSV/EDV. Left upper pole medulla 22.5/5.3 Right upper pole medulla EDR 0.27 . PSV/EDV . Right upper pole medulla R.I. 0.73 . Left upper pole medulla EDR 0.24 . Upper Dirk Cortx 19.9/5.1 PSV/EDV. Left upper pole medulla R.I. 0.77 . Right upper pole cortex EDR 0.26 . UP Cortex 16.3/5.3 PSV/EDV. Right upper pole cortex R.I. 0.75 . Left upper pole cortex EDR 0.33 . Right lower Pole medulla 23.8/5.1 Left upper pole cortex R.I. 0.68 . PSV/EDV . Left lower Pole medulla 23.1/5.9 Right lower pole medulla EDR 0.21 . PSV/EDV . Right lower pole medulla R.I. 0.79 . Left lower pole medulla EDR 0.26 . Lower Pole Cortex 16.8/5.5 PSV/EDV. Left lower pole medulla R.I. 0.74 . Right lower pole cortex EDR 0.33 . Lower Pole Cortx 16.9/4.7 PSV/EDV. Right lower pole cortex R.I. 0.67 . Left lower pole cortex EDR 0.28 . Right Renal Hilar Left lower pole cortex R.I. 0.72 . Right Hilar avg 39.1/6.5 PSV/EDV. Left Renal Hilar Right hilar acceleration time 40 LT Hilar avg 35.4/6.5 PSV/EDV . m/sec. Left hilar acceleration time 60 Right Renal Dimensions m/sec. Right kidney size 10.15 cm . Left Renal Dimensions Right cortical dimension 1.54 cm . Left kidney size 10.40 cm . Nonvascularized nodule noted on Left cortical dimension 1.38 cm . right kidney measuring approximently 4.56 x 5.15 cm. Aorta Proximal abdominal aorta 1.48 x 1.47 cm . Proximal abdominal aorta peak systolic velocity is 69.9 cm/sec . Distal abdominal aorta 1.10 x 1.10 cm . Distal abdominal aorta peak systolic velocity is 96.4 cm/sec . Patient Safety Left renal artery technically difficult to visualize. Interpretation Summary Normal proximal aortic diameter of 1.48 x 1.47 cm Maximal distal aortic flow velocity 96.4 cm/s <60% stenosis right renal artery <60% stenosis left renal artery Right renal length 10.15 cm Non-vascular likely cystic 4.56 x 5.15 cm right renal lesion. Left renal length 10.4 cm Ordering Physician: Migel Sharma Referring Physician: Christin Aly Performed By: Manjula Rothman RVT
[2019-10-16] MEDS: Aspirin 81 MG TAB.CHEW PO (09:36)
[2019-10-16] MEDS: hydroCHLOROthiazide 12.5mg 12.5 MG PO (09:36)
[2019-10-16] MEDS: Losartan Potassium 50 MG Tablet PO (09:36)
[2019-10-16] MEDS: Labetalol 100 MG Tablet PO ×2 (09:36→21:58)
[2019-10-16] MEDS: Budesonide 3 MG CAPSULE.EC 9 MG PO (09:36)
--- NOTE | 2019-10-16 09:55 | CASEMGMT ---
RN CM Assessment Presentation: HTN urgency Intro role of CM and purpose of RN CM assessment to patient, and son in law in room. Pt is awake, alert and able to participate in assessment. Demographics, PCP and Pharmacy verified. Pt states she is independent @ home, does not use ambulatory devices, but has walker at home. MRI, US of kidney today. PCP: Dr. Miguelina Capellan Preferred Pharmacy: [facility] Insurance: MMO Prescription Benefit: yes LNOK: , Tommy Love Living Arrangements: Lives independently with . States does not use ambulatory DME. Independent in ADL's, denies needing assist. Family is available if needed. Transportation: drives and family can assist with driving. DME: has walker, does not use HHC/SNF: has been in TCU in 2018 Patient DC goals: Home DC PLAN: Home on discharge. Pierre PICKENSN RN ACM
--- NOTE | 2019-10-16 10:22 | CASEMGMT ---
Addendum entered by Sangita Hernandez 10/16/19 10:34: Resource guide not given as pt does not need it at this time. CHRISS Colbert Original Note: PHQ-9 completed. No resource guide needed, no indication of depression at this time. Pt's difficulty with sleep is a chronic issue, and low energy has been over the last couple of weeks. No intervention needed at this time. KEISHA ColbertS
[2019-10-16] MEDS: Budesonide 3 MG CAPSULE.EC PO ×2 (15:22→21:57)
[2019-10-16] MEDS: Atorvastatin Calcium 80 MG Tablet PO (21:57)
[2019-10-16] MEDS: Gabapentin 100 MG Capsule 200 MG PO (21:58)
--- NOTE | 2019-10-16 23:45 | NURSING ---
Pt noted to be sitting up in bed, crying out that her head is killing her and she's really nauseous. Pt asked to lay back in bed, BP checked for 222/99;pt denies numbness/tingling, pt A+O x3, follows all commands, no aphasia or ataxia.
[2019-10-16] MEDS: Ondansetron 4 MG/2 ML Vial IV (23:52)
--- NOTE | 2019-10-16 23:55 | NURSING ---
Pt given 2mg Morphine and 4mg Zofran IVP for headache and nausea, BP rechecked for 194/87.
[2019-10-17] VITALS (24 sets, daily range): BP systolic 122–200; BP diastolic 54–163; PULSE 67–107; RESP 12–16; TEMP 36.6–37.2; O2SAT 91–96
[2019-10-17] MEDS: hydrALAZINE 20 MG/ML Vial 10 MG IV ×2 (00:15→08:43)
[2019-10-17] MEDS: 0.9% Normal Saline 1,000 ML 75 ML IV ×2 (04:44→18:03)
[2019-10-17 04:49] LABS: Absolute Lymphocyte Count 1.25 X10^3/uL (0.83-4.51); Absolute Neutrophil Count 3.4 X10^3/uL (2.0-7.7); Basophil# 0.03 X10^3/uL; Basophil% 0.6 % (0-1); Eosinophil# 0.16 X10^3/uL; Hematocrit 31.4 % (37-47); Hemoglobin 10.2 g/dL (12.0-15.0); Lymphocyte # 1.25 X10^3/ul (4.0); Lymphocyte % 23.8 % (19-41); Mean Corp Hgb Conc 32.5 g/dL (32-36); Mean Corpuscular Volume 101.6 fL (81-99); Mean Platelet Vol. 9.8 fl (6.2-12.0); Monocyte# 0.44 X10^3/uL; Monocyte% 8.4 % (0-10); NRBC Flagged by Analyzer 0 % (0-5); Neutrophil # 3.36 X10^3/uL (2.7-7.7); Platelet Count 173 K/mm3 (150-450); RBC Distribution Width CV 13.8 % (11.6-14.6); RBC Distribution Width SD 51.3 fl (35.1-43.9); Red Blood Count 3.09 M/mm3 (4.2-5.4); White Blood Count 5.3 K/mm3 (4.4-11.0)
[2019-10-17 05:19] LABS: Anion Gap 3 (5-15); BUN 19 mg/dL (7-18); BUN/Creat Ratio 20.1 RATIO (10-20); Chloride 111 mmol/L (98-107); Creatinine, Serum 0.94 mg/dL (0.55-1.02); EST Glomerular Filtration Rate 60 mL/min (>60); Est Glom Filt Rate - Afr Amer 73 mL/min (>60); Estimated Creatinine Clearance 42.45 ml/min; Glucose 101 mg/dL (74-106); Magnesium 1.6 mg/dL (1.6-2.6); Potassium 4.2 mmol/L (3.5-5.1); Sodium Level 142 mmol/L (136-145)
--- NOTE | 2019-10-17 06:04 | NURSING ---
Pt woke crying about headache and nausea, pt given PRN doses of morphine and Zofran early. Pt also given PRN Tylenol after nausea calmed down.
[2019-10-17] MEDS: Morphine 2 MG/ML Syringe IV ×2 (06:12→09:32)
[2019-10-17] MEDS: Ondansetron 4 MG/2 ML Vial IV (06:16)
[2019-10-17] MEDS: 0.9% Saline Lock 10 ML Syringe IV (06:18)
--- NOTE | 2019-10-17 06:20 | PCM.PN.INT ---
Subjective: The patient was seen and examined at the bedside this morning. Events from the last 24 hours have been reviewed. The patient is currently afebrile, hemodynamically stable and maintaining appropriate oxygen saturations on room air. The patient did have a couple elevated systolic readings overnight, as high as 194 mmHg. She did receive PRN hydralazine. The patient is reporting the presence of a headache this morning. Objective: The patient's most recent lab work, culture data and imaging studies have all been personally reviewed. Brain MRI revealed chronic involutional changes without acute infarction. Carotid duplex revealed no hemodynamically significant plaque or stenosis. Surface echocardiogram revealed normal LV size and function with an ejection fraction of 65%, along with stage I diastolic dysfunction. There was no evidence of an intra-atrial shunt. Renal artery duplex revealed no significant stenoses of the right or left renal artery. General: Alert, Cooperative, No apparent distress HEENT: Atraumatic, PERRLA, Normocephalic Oral: No Gingival or Mucosal Lesions/ Ulcerations Neck: Supple, No Nodes, Trachea Midline Lungs: Normal air movement, No rhonchi, No wheeze, No rales Cardiovascular: Regular rate, Regular Rhythm, Normal S1, Normal S2, No murmurs Abdomen: Bowel Sounds Present, Soft, Non Tender Extremities: No clubbing, No cyanosis, No edema Skin: No breakdown Musculoskeletal: No Muscle Wasting Lymphatic: No Cervical, Supraclavicular, or Inguinal Adenopathy Neurological: Neuro grossly intact Psych/Mental Status: Normal Affect, Appropriate Vital Signs Temp Pulse Resp BP Pulse Ox 97.8 F 86 12 156/68 H 91 10/17/19 04:00 10/17/19 04:00 10/17/19 04:00 10/17/19 04:00 10/17/19 04:00 Oxygen Flow Rate (L/min) 2 Oxygen Delivery Method Room Air Weight: 162 lb 4.163 oz Body Mass Index (BMI) 25.5 Finger Stick Blood Glucose 104 Intake and Output for Last 24 Hours 10/15/19 10/16/19 10/17/19 23:59 23:59 23:59 Intake Total 2126.66 / 2326.66 200 / 200 Output Total 950 / 1450 500 / 500 Balance 1176.66 / 876.66 -300 / -300 Labs (Last 48 Hours) 10/15/19 10/15/19 10/15/19 22:25 22:25 22:25 WBC 6.5 RBC 3.64 L Hgb 12.3 Hct 36.5 L MCV 100.3 H MCH 33.8 H MCHC 33.7 RDW Std Deviation 50.0 H RDW Coeff of Gabriella 13.7 Plt Count 221 MPV 10.1 Immature Gran % (Auto) 0.300 Neut % (Auto) 63.7 Lymph % (Auto) 24.7 [place] % (Auto) 8.4 Eos % (Auto) 2.6 Baso % (Auto) 0.3 Absolute Neuts (auto) 4.1 Absolute Lymphs (auto) 1.61 Nucleated RBC % 0 PT 12.2 INR 0.9 APTT 29.7 Sodium 144 Potassium 4.3 Chloride 111 H Carbon Dioxide 27.0 Anion Gap 6 BUN 25 H Creatinine 1.46 H Estim Creat Clear Calc 24.15 Est GFR (MDRD) Af Amer 44 L Est GFR (MDRD) Non-Af 36 L BUN/Creatinine Ratio 17.1 Glucose 106 Calcium 9.0 Magnesium Troponin I < 0.015 Triglycerides Cholesterol LDL Cholesterol VLDL Cholesterol HDL Cholesterol 10/16/19 10/16/19 10/17/19 04:25 04:25 04:25 WBC 5.4 5.3 RBC 3.20 L 3.09 L Hgb 10.5 L 10.2 L Hct 32.0 L 31.4 L MCV 100.0 H 101.6 H MCH 32.8 H 33.0 H MCHC 32.8 32.5 RDW Std Deviation 50.0 H 51.3 H RDW Coeff of Gabriella 13.7 13.8 Plt Count 202 173 MPV 10.0 9.8 Immature Gran % (Auto) 0.200 0.200 Neut % (Auto) 66.1 64.0 Lymph % (Auto) 22.8 23.8 [place] % (Auto) 8.5 8.4 Eos % (Auto) 2.0 3.0 Baso % (Auto) 0.4 0.6 Absolute Neuts (auto) 3.6 3.4 Absolute Lymphs (auto) 1.23 1.25 Nucleated RBC % 0 0 PT INR APTT Sodium 143 Potassium 4.6 Chloride 111 H Carbon Dioxide 29.0 Anion Gap 3 L BUN 25 H Creatinine 1.18 H Estim Creat Clear Calc 33.82 Est GFR (MDRD) Af Amer 56 L Est GFR (MDRD) Non-Af 47 L BUN/Creatinine Ratio 21.2 H Glucose 113 H Calcium 8.0 L Magnesium Troponin I Triglycerides 80 Cholesterol 202 H LDL Cholesterol 102 VLDL Cholesterol 16 HDL Cholesterol 84 10/17/19 04:25 WBC RBC Hgb Hct MCV MCH MCHC RDW Std Deviation RDW Coeff of Gabriella Plt Count MPV Immature Gran % (Auto) Neut % (Auto) Lymph % (Auto) [place] % (Auto) Eos % (Auto) Baso % (Auto) Absolute Neuts (auto) Absolute Lymphs (auto) Nucleated RBC % PT INR APTT Sodium 142 Potassium 4.2 Chloride 111 H Carbon Dioxide 28.0 Anion Gap 3 L BUN 19 H Creatinine 0.94 Estim Creat Clear Calc 42.45 Est GFR (MDRD) Af Amer 73 Est GFR (MDRD) Non-Af 60 BUN/Creatinine Ratio 20.1 H Glucose 101 Calcium 8.0 L Magnesium 1.6 Troponin I Triglycerides Cholesterol LDL Cholesterol VLDL Cholesterol HDL Cholesterol Clinical Impression(s) from Imaging Studies Brain CT 10/15/19 22:12 IMPRESSION: No acute intracranial abnormality. Chronic changes as above. ASPECT 10. Individualized dose optimization techniques were used for this CT. at 222 Reported and signed by: Josue Galarza MD Electronically Signed: Josue Galarza MD at 22:25 EST Tel , Service support , ADDENDUM: 10/16/19 0000 IMPRESSION: No acute intracranial abnormality. Chronic changes as above. ASPECT 10. Individualized dose optimization techniques were used for this CT. at 2227 Reported and signed by: Josue Galarza MD N.B. : The above information has been verbally conveyed by Josue Galarza MD to Dr. Marshall Corrales MD, on 10/15/2019 23:53:31 (ET). Electronically Signed: Josue Galarza MD at 22:25 EST Tel , Service support , Chest X-Ray 10/15/19 22:46 IMPRESSION: Chronic interestitial changes. No radiographic evidence of acute cardiopulmonary disease. at 0009 Reported and signed by: Josue Galarza MD Electronically Signed: Josue Galarza MD at 0:08 EST Tel , Service support , Brain MRI 10/16/19 01:27 IMPRESSION: Involutional changes of the brain, as described above. No acute infarct. Electronically Signed: Julián North MD at 13:14 EST Tel , Service support , Medical Necessity - Tobacco Use Smoking Status: Former smoker Tobacco Use: Non-smoker Assessment/Plan All Active Problems Hypertensive emergency (Acute) RECOMMENDATIONS: 1. Additional secondary work-up for the patient's hypertension is being undertaken with 24-hour urine metanephrines. 2. Continue current antihypertensive regimen. Consider upward titration of hydrochlorothiazide. 3. Consider restarting minoxidil. 4. Encourage incentive spirometer use while in bed. Mobilize patient as tolerated. 5. Given the patient's lack of further ICU or pulmonary needs, will sign off. Please call with any additional questions. IMPRESSIONS: 1. Hypertensive emergency The patient did require continuous infusion of Cardene initially when admitted to the ICU. This has since been discontinued. She is currently on her home antihypertensive regimen. Despite this, the patient continues to have intermittent periods where her systolic pressures are in excess of 180 mmHg. Renal artery duplex was largely unremarkable. Echocardiogram was within normal limits. The patient's current antihypertensive regimen will be augmented accordingly. Additional secondary work-up, including 24-hour urine metanephrines has been ordered. 2. Suspected stroke The patient initially presented with ataxia and aphasia. However, initial CT was unremarkable. Subsequent MRI was completed and definitively ruled out the presence of an acute infarction. 3. Chronic kidney disease/hypothyroidism/history of breast cancer Complicates care, management, recovery and prognosis. Physical therapy working with the patient. Continue home medications as indicated. This note was generated with [employer] dictation software. It may contain incorrect words, spelling, and punctuation that were not noted in checking the note before signing. Code Visit Inpatient E&M: 35743 Subs Hosp L2
--- NOTE | 2019-10-17 07:34 | PN_ITS ---
Patient Problems: Active and Suspected Problems Stroke (Suspected) Hypertensive emergency (Acute) Reason for Visit: Hypertension Subjective: Patient did experience significant rise her blood pressure during the night with systolic as high as 194. This was accompanied by headache, lightheadedness and nausea. Did receive hydralazine PRN. Renal duplex obtained the day prior did not show any evidence of renal artery stenosis. With patient experiencing episodic rise in her blood pressure did order 24-hour urine metanephrines to rule out pheochromocytoma Vital Signs - 24 hr Temp Pulse Resp BP BP Pulse Ox 10/17/19 04:00 97.8 F 76 12 156/68 H 91 10/17/19 01:06 170/76 H 10/17/19 00:15 78 194/87 H 10/17/19 00:00 77 10/16/19 23:55 194/87 H 10/16/19 23:45 222/99 H 10/16/19 22:00 97.9 F 75 16 188/95 H 98 10/16/19 20:00 67 10/16/19 16:00 98.2 F 66 12 162/75 H 98 10/16/19 15:00 66 12 152/77 H 96 10/16/19 14:00 67 12 130/58 H 94 10/16/19 13:00 63 13 166/72 H 94 10/16/19 12:00 98.1 F 67 14 168/78 H 94 10/16/19 11:00 69 13 150/83 H 95 10/16/19 10:00 97.9 F 70 14 177/79 H 96 10/16/19 09:00 70 16 158/78 H 92 10/16/19 08:48 94 10/16/19 08:00 98.1 F 71 13 154/80 H 94 Objective: GENERAL: cooperative HEENT: Atraumatic; EYES; Anicteric, Normal Conjunctiva NECK; supple, normal thyroid, RESPIRATORY: Diminished to auscultation CARDIOVASCULAR: Regular S1 S2, GI: soft, normoactive bowel sounds, : No Renal angle tenderness; EXTREMITIES: No edema, no clubbing, MUSCULOSKELETAL: no muscle waisting NEURO: Awake; no lateralizing signs. SKIN: No Rash PSYCH; Flat affect Vitals/I&O's: Vital Signs Temp Pulse Resp BP Pulse Ox 97.8 F 86 12 156/68 H 91 10/17/19 04:00 12/31/19 04:00 10/17/19 04:00 10/17/19 04:00 10/17/19 04:00 Oxygen Flow Rate (L/min) 2 Oxygen Delivery Method Room Air Weight: 73.6 kg Body Mass Index (BMI) 25.5 Finger Stick Blood Glucose 104 Intake and Output for Last 24 Hours 10/15/19 10/16/19 10/17/19 23:59 23:59 23:59 Intake Total 2126.66 / 2326.66 1400 / 1400 Output Total 950 / 1450 950 / 950 Balance 1176.66 / 876.66 450 / 450 Laboratory Results 10/17/19 04:25: WBC 5.3, RBC 3.09 L, Hgb 10.2 L, Hct 31.4 L, MCV 101.6 H, MCH 33.0 H, MCHC 32.5, RDW Std Deviation 51.3 H, RDW Coeff of Gabriella 13.8, Plt Count 173, MPV 9.8, Immature Gran % (Auto) 0.200, Neut % (Auto) 64.0, Lymph % (Auto) 23.8, [place] % (Auto) 8.4, Eos % (Auto) 3.0, Baso % (Auto) 0.6, Absolute Neuts (auto) 3.4, Absolute Lymphs (auto) 1.25, Nucleated RBC % 0 10/17/19 04:25: Sodium 142, Potassium 4.2, Chloride 111 H, Carbon Dioxide 28.0, Anion Gap 3 L, BUN 19 H, Creatinine 0.94, Estim Creat Clear Calc 42.45, Est GFR (MDRD) Af Amer 73, Est GFR (MDRD) Non-Af 60, BUN/Creatinine Ratio 20.1 H, Glucose 101, Calcium 8.0 L, Magnesium 1.6 Current Medications Acetaminophen (Tylenol) 650 mg PO Q6H PRN PRN PRN Reason: Pain Score 1-5/Temp > 100.7 F Last Admin: 10/17/19 06:11 Dose: 650 mg Documented by: Aspirin (Aspirin, Baby) 81 mg PO DAILY@0800 [facility] Last Admin: 10/16/19 09:36 Dose: 81 mg Documented by: Atorvastatin Calcium (Lipitor) 80 mg PO QHS [facility] Last Admin: 10/16/19 21:57 Dose: 80 mg Documented by: Budesonide (Budesonide Ec) 3 mg PO TID [facility] Last Admin: 10/17/19 06:17 Dose: 3 mg Documented by: Gabapentin (Neurontin) 200 mg PO QHS [facility] Last Admin: 10/16/19 21:58 Dose: 200 mg Documented by: Heparin Sodium (Porcine) (Heparin Na) 5,000 unit SC Q12 [facility] Last Admin: 10/16/19 21:58 Dose: Not Given Documented by: Hydralazine HCl (Apresoline Iv) 10 mg IV Q4H PRN PRN PRN Reason: SBP > 160 Last Admin: 10/17/19 00:15 Dose: 10 mg Documented by: Hydrochlorothiazide () 12.5 mg PO DAILY [facility] Last Admin: 10/16/19 09:36 Dose: 12.5 mg Documented by: Sodium Chloride () 1,000 mls @ 75 mls/hr IV .[id number] [facility] Last Admin: 10/17/19 04:44 Dose: 75 mls/hr Documented by: Sodium Chloride () 250 mls @ 15 mls/hr IV .[id number] PRN PRN Reason: Saline Flush Sodium Chloride () 250 mls @ 15 mls/hr IV .[id number] PRN PRN Reason: Additional IVPB Infusion Sodium Chloride () 250 mls @ 15 mls/hr IV .[id number] PRN PRN Reason: Saline Flush Sodium Chloride () 250 mls @ 15 mls/hr IV .[id number] PRN PRN Reason: Additional IVPB Infusion Sodium Chloride () 250 mls @ 15 mls/hr IV .[id number] PRN PRN Reason: Saline Flush Sodium Chloride () 250 mls @ 15 mls/hr IV .[id number] PRN PRN Reason: Additional IVPB Infusion Labetalol HCl (Trandate) 100 mg PO BID [facility] Last Admin: 10/16/19 21:58 Dose: 100 mg Documented by: Levothyroxine Sodium (Synthroid) 88 mcg PO DAILY@0600 [facility] Last Admin: 10/17/19 06:17 Dose: 88 mcg Documented by: Losartan Potassium (Cozaar) 50 mg PO DAILY [facility] Last Admin: 10/16/19 09:36 Dose: 50 mg Documented by: Morphine Sulfate () 1 - 2 mg IV Q3H PRN PRN PRN Reason: Pain Score 6-10/10 Last Admin: 10/17/19 06:12 Dose: 2 mg Documented by: Ondansetron HCl (Zofran) 4 mg IV Q8H PRN PRN PRN Reason: NAUSEA/VOMITING Last Admin: 10/17/19 06:16 Dose: 4 mg Documented by: Sodium Chloride () 10 - 40 ml IV UD PRN PRN Reason: SALINE FLUSH Last Admin: 10/17/19 06:18 Dose: 10 ml Documented by: Sodium Chloride () 10 - 40 ml IV UD PRN PRN Reason: SALINE FLUSH Zolpidem Tartrate (Ambien (Generic)) 5 mg PO QHS PRN PRN PRN Reason: INSOMNIA STROKE Vital Signs/Narrative: Vital Signs Temp Pulse Resp BP Pulse Ox 10/17/19 04:00 97.8 F 76 12 156/68 H 91 Medical Necessity - Tobacco Use Smoking Status: Former smoker Tobacco Use: Non-smoker Assessment/Plan All Active Problems Hypertensive emergency (Acute) Patient is an 84-year-old lady admitted with severe headache, slurred speech disorientation and some ataxia. Patient was found to have markedly elevated blood pressure with systolic of 221/93 admitted to the intensive care unit as a case of acute hypertensive emergency started on Cardene drip 1. Acute hypertensive emergency ?Patient admitted to the intensive care unit started on Cardene drip which is currently being titrated to keep systolic less than 140. Patient is on a number of multiple antihypertensives. With her blood pressure being markedly elevated plan is to rule out secondary causes. As part of evaluation ordered renal arterial duplex ?10/17/2019:Patient did experience significant rise her blood pressure during the night with systolic as high as 194. This was accompanied by headache, lightheadedness and nausea. Did receive hydralazine PRN. Renal duplex obtained the day prior did not show any evidence of renal artery stenosis. With patient experiencing episodic rise in her blood pressure did order 24-hour urine metanephrines to rule out pheochromocytoma 2. Suspected CVA ?Patient had difficulty with speech with some ataxia. MRI of the head and neck ordered to rule out posterior circulation CVA. Patient is currently being monitored in ICU with [facility] patient's family had apparently declined TPA in the emergency department ?10/17/2019 MRI obtained the day prior did not show any evidence of acute CVA 3. Stage III chronic kidney disease ?Creatinine on admission was 1.46 did improve with rehydration 4. History of breast CA ?Status post lumpectomy and radiation currently remains in Remission 5. Hypothyroidism ~patient is on levothyroxine home dose continued 6. Microscopic colitis ~ Patient is on budesonide did continue 7. DVT prophylaxis SC Heparin Clinical Impression(s) from Imaging Studies Brain MRI 10/16/19 01:27 IMPRESSION: Involutional changes of the brain, as described above. No acute infarct. Electronically Signed: Julián North MD at 13:14 EST Tel , Service support , Code Visit Inpatient E&M: 30594 Subs Hosp L3
--- NOTE | 2019-10-17 09:08 | NURSING ---
Night RN Bria Avina charted am meds 0611 of Tylenol, Budesonide and Synthroid as given, but patient was nauseated and did not take. Documentation undone by this RN.
[2019-10-17] MEDS: proMETHazine 25 MG/ML Syringe 12.5 MG IM (09:34)
[2019-10-17] MEDS: hydroCHLOROthiazide 12.5mg 12.5 MG PO (11:16)
[2019-10-17] MEDS: Losartan Potassium 50 MG Tablet PO (11:16)
[2019-10-17] MEDS: Aspirin 81 MG TAB.CHEW PO (11:17)
[2019-10-17] MEDS: Labetalol 100 MG Tablet PO ×2 (11:17→23:16)
[2019-10-17] MEDS: amLODIPine 10 MG Tablet PO (11:19)
--- NOTE | 2019-10-17 16:00 | NURSING ---
Patient assisted to the bathroom. This nurse was assisting patient back to bed when while still in the bathroom the patient became more confused, slow to move and needed directions from 2 RNs on getting back to bed. Patient was still able to speak to this RN and Renzo Patel RN while assisting back to bed, but was slow to respond. After getting back to bed patients vital signs stable, 139/62, HR75, 99% 2L NC. Dr. Sharma notified and order given for stat CT of brain no contrast.
--- NOTE | 2019-10-17 16:10 | CT_ITS ---
STUDY: CT BRAIN WITHOUT CONTRAST REASON FOR EXAM: Female, 84 years old. Altered mental status, sudden trouble with coordination, headache, nausea. Speech difficulty yesterday and ataxia. Hx breast cancer. RADIATION DOSAGE (If Supplied By Facility): CTDIvol = ( 44.99 ) mGy, DLP = ( 745.49 ) mGycm TECHNIQUE: Transaxial CT imaging of the brain was performed without administration of intravenous contrast material. Individualized dose optimization techniques were used for this CT. COMPARISON: Prior study of 10/15/2019 FINDINGS: Normal soft tissue structures. Normal calvarium. Normal size ventricles and extra-axial spaces for the patient''s age. There are areas of decreased attenuation within the white matter tracts of the supratentorial brain, consistent with microvascular disease changes. There is an old tiny lacunar infarct of the right basal ganglia. Normal brainstem. Normal cerebellum. There is no intracranial hemorrhage. There are no findings of an acute ischemic infarction. Normal visualized paranasal sinuses. CT/Brain/Head without Contrast IMPRESSION: Chronic involutional changes of the brain. 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 There is no intracranial hemorrhage or evidence of acute infarct. Electronically Signed: Hossein Castro MD at 17:10 EST , Service support ,
[2019-10-17 16:31] LABS: Bedside Glucose 121 mg/dL (70-110)
[2019-10-17] MEDS: Acetaminophen 325 MG Tablet 650 MG PO (17:59)
--- NOTE | 2019-10-17 21:45 | NURSING ---
This RN called to pt's room to assist w/taking pt to bathroom; pt found completely naked and disconnected from the monitor and IVF standing at her room door. Pt answered orientation questions appropriately and stated that she need to go to the bathroom. Pt had a difficult time distinguishing her right from her left when given verbal cues for ambulation. Pt guided by both RNs to the bathroom where she voided on the commode. Pt turned to her right side to open a new roll of toilet paper, pointed out to pt that the roll of paper was full on the wall. Pt felt around her left side until finding the toilet paper.
--- NOTE | 2019-10-17 21:59 | NURSING ---
Pt assisted back to bed, where an NIHSS was performed. Pt score was 10, fingerstick blood sugar was 97; Stroke Alert activated.
--- NOTE | 2019-10-17 22:07 | CT_ITS ---
STUDY: CT BRAIN WITHOUT CONTRAST REASON FOR EXAM: Female, 84 years old. STROKE RADIATION DOSAGE (If Supplied By Facility): CTDIvol = ( 44.99 ) mGy, DLP = ( 796.11 ) mGycm TECHNIQUE: Transaxial CT imaging of the brain was performed without administration of intravenous contrast material. Individualized dose optimization techniques were used for this CT. COMPARISON: Previous study of earlier this date FINDINGS: Normal soft tissue structures. Normal calvarium. Normal size ventricles and extra-axial spaces for the patient''s age. There are areas of decreased attenuation within the white matter tracts of the supratentorial brain, consistent with microvascular disease changes. 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 Normal brainstem. Normal cerebellum. There is no intracranial hemorrhage. There are no findings of an acute ischemic infarction. Normal visualized paranasal sinuses. CT/Brain/Head without Contrast IMPRESSION: Chronic involutional changes of the brain. There is again no evidence of intracranial hemorrhage or acute infarct. 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 If clinically indicated, CTA brain and/or MRI may be helpful for further evaluation at this time. N.B. : The above information has been verbally conveyed by Hossein Castro MD to LEONARDO ALMONTE on 10/17/2019 22:27:36 (ET). Electronically Signed: Hossein Castro MD at 22:30 EST , Service support ,
--- NOTE | 2019-10-17 22:08 | CT_ITS ---
We are attempting to reach an attending provider to discuss findings. An addendum with communication details will be sent when the communication is complete. HISTORY: STROKE TECHNIQUE: CT angiogram of the brain was performed with IV contrast. CT angiogram images of the neck were obtained with IV contrast. 3D reconstructions were reviewed to aid in vascular evaluation. NASCET criteria using the distal internal carotid arteries were used for evaluation of stenoses. A radiation dose optimization technique was used for this scan. IV Contrast dosage and agent: 100 ml [id number] Number of images including paperwork: [id number] COMPARISON: None CTA neck: FINDINGS: AORTIC ARCH AND BRANCHES: No dissection. RIGHT CAROTID ARTERIES: No occlusion, significant stenosis or dissection. LEFT CAROTID ARTERIES: No occlusion, significant stenosis or dissection. RIGHT VERTEBRAL ARTERY: No occlusion, significant stenosis or dissection. LEFT VERTEBRAL ARTERY: No occlusion, significant stenosis or dissection. NECK SOFT TISSUES: Unremarkable. LUNG APICES: Unremarkable. BONES: Unremarkable. IMPRESSION: Unremarkable CT angiogram of the neck. CTA head: FINDINGS: INTERNAL CAROTID ARTERIES: No significant stenosis of the intracranial segments. ANTERIOR CEREBRAL ARTERIES: No significant stenosis of the visualized segments. ANTERIOR COMMUNICATING ARTERY: Present. MIDDLE CEREBRAL ARTERIES: No significant stenosis of the visualized segments. VERTEBRAL ARTERIES: No significant stenosis of the intradural/visualized segments. BASILAR ARTERY: No significant stenosis. POSTERIOR CEREBRAL ARTERIES: No significant stenosis of the visualized segments. POSTERIOR COMMUNICATING ARTERIES: Visualized on the right. Not definitively seen on the left. No evidence of intracranial aneurysm or vascular malformation. CT/CTA Head AND Neck W/ Contrast IMPRESSION: No arterial occlusion, aneurysm or vascular malformation. Individualized dose optimization techniques were used for this CT. at 2236 Reported and signed by: Triny Villanueva MD Electronically Signed: Triny Villanueva MD at 22:36 EST Tel , Service support ,
[2019-10-17 22:11] LABS: Bedside Glucose 97 mg/dL (70-110)
--- NOTE | 2019-10-17 22:13 | PCM.PN.BLA ---
Progress Note Stroke alert called. Patient is not hypoglycemic. Reportedly NIH is 10. Not gazing to the left (hemianopia of left side); Left leg drift, mild to moderate aphasia; ataxia; inattentiveness to left side CT and CTA head/neck ordered. Later on NIH decreased 8. Discussed case with Teleneurologist Patient was examined by video by tele-neurologist. CT and CT head and neck unremarkable. Only showed a tiny old lacunar infarct on the right basal ganglia as on previous imaging Discussed the case again with her neurologist who thought that patient's symptoms is from a fluctuation of her blood pressure in the setting of recent hypertensive emergency. Discussed with Tele-neurologist that new goal of blood pressure will be systolic of 150-170 and tele-neurologist was agreeable. In that regard will decrease amlodipine from 10 mg daily to 5 mg daily. Continue hydrochlorothiazide 12.5 mg daily. Continue labetalol 100 mg twice daily. Change hydralazine from 20 mg IV as needed to 5 mg every 4 hours as needed for systolic blood pressure more than 170 with a goal to keep blood pressure between 150-1 70. Continue aspirin and Lipitor.
--- NOTE | 2019-10-17 22:15 | NURSING ---
Unable to complete NIHSS at this time d/t pt being in CT
--- NOTE | 2019-10-17 22:45 | NURSING ---
NIHSS performed at bedside w/teledoc neurologist from [facility].
[2019-10-17] MEDS: Gabapentin 100 MG Capsule 200 MG PO (23:16)
[2019-10-17] MEDS: Atorvastatin Calcium 80 MG Tablet PO (23:16)
[2019-10-18] VITALS (10 sets, daily range): BP systolic 146–163; BP diastolic 62–72; PULSE 71–86; RESP 11–18; TEMP 36.6–36.7; O2SAT 96–97
[2019-10-18] MEDS: Levothyroxine 88 MCG Tablet PO (06:18)
[2019-10-18 06:22] LABS: Absolute Lymphocyte Count 0.94 X10^3/uL (0.83-4.51); Absolute Neutrophil Count 3.6 X10^3/uL (2.0-7.7); Basophil# 0.02 X10^3/uL; Basophil% 0.4 % (0-1); Eosinophil# 0.16 X10^3/uL; Hematocrit 31.7 % (37-47); Hemoglobin 10.2 g/dL (12.0-15.0); Lymphocyte # 0.94 X10^3/ul (4.0); Lymphocyte % 17.6 % (19-41); Mean Corp Hgb Conc 32.2 g/dL (32-36); Mean Corpuscular Hgb 33.1 pg (27.0-32.0); Mean Corpuscular Volume 102.9 fL (81-99); Mean Platelet Vol. 9.7 fl (6.2-12.0); Monocyte# 0.59 X10^3/uL; Monocyte% 11.1 % (0-10); NRBC Flagged by Analyzer 0 % (0-5); Neutrophil % 67.5 % (47-70); Platelet Count 161 K/mm3 (150-450); RBC Distribution Width CV 14.2 % (11.6-14.6); RBC Distribution Width SD 53.5 fl (35.1-43.9); Red Blood Count 3.08 M/mm3 (4.2-5.4); White Blood Count 5.3 K/mm3 (4.4-11.0)
[2019-10-18 06:48] LABS: Anion Gap 4 (5-15); BUN 19 mg/dL (7-18); BUN/Creat Ratio 16.8 RATIO (10-20); Chloride 113 mmol/L (98-107); Creatinine, Serum 1.13 mg/dL (0.55-1.02); EST Glomerular Filtration Rate 49 mL/min (>60); Est Glom Filt Rate - Afr Amer 59 mL/min (>60); Estimated Creatinine Clearance 35.31 ml/min; Glucose 107 mg/dL (74-106); Potassium 4.2 mmol/L (3.5-5.1); Sodium Level 143 mmol/L (136-145)
--- NOTE | 2019-10-18 08:39 | PN_ITS ---
Patient Problems: Active and Suspected Problems Stroke (Suspected) Hypertensive emergency (Acute) Reason for Visit: Follow-up hypertensive urgency and encephalopathy Subjective: Had a uneventful night. Stroke alert was called after patient NIH was reported to be 10. Underwent subsequent evaluation with CT and CTA of the head and neck which only demonstrated tiny old lacunar infarct on the right basal ganglia. Telemetry neurology was consulted recommendation is for patient blood pressure to be kept between 1 50-1 70 systolic Seen this a.m. patient complains of feeling tired. She is also currently undergoing evaluation for secondary causes of her episodic hypertension. Objective: GENERAL: cooperative HEENT: Atraumatic; EYES; Anicteric, Normal Conjunctiva NECK; supple, normal thyroid, RESPIRATORY: Diminished to auscultation CARDIOVASCULAR: Regular S1 S2, GI: soft, normoactive bowel sounds, : No Renal angle tenderness; EXTREMITIES: No edema, no clubbing, MUSCULOSKELETAL: no muscle waisting NEURO: Awake; no lateralizing signs. SKIN: No Rash PSYCH; Flat affect Vitals/I&O's: Vital Signs Temp Pulse Resp BP Pulse Ox 98 F 77 12 163/72 H 96 10/18/19 04:00 10/18/19 06:00 10/18/19 06:00 10/18/19 06:00 10/18/19 04:00 Oxygen Flow Rate (L/min) 2 Oxygen Delivery Method Nasal Cannula Weight: 73.6 kg Body Mass Index (BMI) 25.5 Finger Stick Blood Glucose 104 Intake and Output for Last 24 Hours 10/16/19 10/17/19 10/18/19 23:59 23:59 23:59 Intake Total 2126.66 / 2326.66 2445 / 2520 225 / 225 Output Total 950 / 1450 950 / 1175 525 / 525 Balance 1176.66 / 876.66 1495 / 1345 -300 / -300 Laboratory Results 10/17/19 16:19: POC Glucose 121 H 10/17/19 21:58: POC Glucose 97 10/18/19 06:15: WBC 5.3, RBC 3.08 L, Hgb 10.2 L, Hct 31.7 L, MCV 102.9 H, MCH 33.1 H, MCHC 32.2, RDW Std Deviation 53.5 H, RDW Coeff of Gabriella 14.2, Plt Count 161, MPV 9.7, Immature Gran % (Auto) 0.400, Neut % (Auto) 67.5, Lymph % (Auto) 17.6 L, [place] % (Auto) 11.1 H, Eos % (Auto) 3.0, Baso % (Auto) 0.4, Absolute Neuts (auto) 3.6, Absolute Lymphs (auto) 0.94, Nucleated RBC % 0 10/18/19 06:15: Sodium 143, Potassium 4.2, Chloride 113 H, Carbon Dioxide 26.0, Anion Gap 4 L, BUN 19 H, Creatinine 1.13 H, Estim Creat Clear Calc 35.31, Est GFR (MDRD) Af Amer 59 L, Est GFR (MDRD) Non-Af 49 L, BUN/Creatinine Ratio 16.8, Glucose 107 H, Calcium 8.0 L Current Medications Acetaminophen (Tylenol) 650 mg PO Q6H PRN PRN PRN Reason: Pain Score 1-5/Temp > 100.7 F Last Admin: 10/17/19 17:59 Dose: 650 mg Documented by: Amlodipine Besylate (Norvasc) 5 mg PO DAILY [facility] Aspirin (Aspirin, Baby) 81 mg PO DAILY@0800 [facility] Last Admin: 10/17/19 11:17 Dose: 81 mg Documented by: Atorvastatin Calcium (Lipitor) 80 mg PO QHS [facility] Last Admin: 10/17/19 23:16 Dose: 80 mg Documented by: Budesonide (Budesonide Ec) 3 mg PO TID [facility] Last Admin: 10/18/19 06:18 Dose: Not Given Documented by: Gabapentin (Neurontin) 200 mg PO QHS [facility] Last Admin: 10/17/19 23:16 Dose: 200 mg Documented by: Heparin Sodium (Porcine) (Heparin Na) 5,000 unit SC Q12 [facility] Last Admin: 10/17/19 23:17 Dose: Not Given Documented by: Hydralazine HCl (Apresoline Iv) 5 mg IV Q4H PRN PRN PRN Reason: SBP GREATER THAN 170 Hydrochlorothiazide () 12.5 mg PO DAILY [facility] Last Admin: 10/17/19 11:16 Dose: 12.5 mg Documented by: Sodium Chloride () 1,000 mls @ 75 mls/hr IV .[id number] [facility] Last Admin: 10/17/19 18:03 Dose: 75 mls/hr Documented by: Sodium Chloride () 250 mls @ 15 mls/hr IV .[id number] PRN PRN Reason: Saline Flush Sodium Chloride () 250 mls @ 15 mls/hr IV .[id number] PRN PRN Reason: Additional IVPB Infusion Sodium Chloride () 250 mls @ 15 mls/hr IV .[id number] PRN PRN Reason: Saline Flush Sodium Chloride () 250 mls @ 15 mls/hr IV .[id number] PRN PRN Reason: Additional IVPB Infusion Sodium Chloride () 250 mls @ 15 mls/hr IV .[id number] PRN PRN Reason: Saline Flush Sodium Chloride () 250 mls @ 15 mls/hr IV .[id number] PRN PRN Reason: Additional IVPB Infusion Labetalol HCl (Trandate) 100 mg PO BID [facility] Last Admin: 10/17/19 23:16 Dose: 100 mg Documented by: Levothyroxine Sodium (Synthroid) 88 mcg PO DAILY@0600 [facility] Last Admin: 10/18/19 06:18 Dose: 88 mcg Documented by: Losartan Potassium (Cozaar) 50 mg PO DAILY [facility] Last Admin: 10/17/19 11:16 Dose: 50 mg Documented by: Morphine Sulfate () 1 - 2 mg IV Q3H PRN PRN PRN Reason: Pain Score 6-10/10 Last Admin: 10/17/19 09:32 Dose: 2 mg Documented by: Ondansetron HCl (Zofran) 4 mg IV Q8H PRN PRN PRN Reason: NAUSEA/VOMITING Last Admin: 10/17/19 06:16 Dose: 4 mg Documented by: Promethazine HCl (Phenergan) 12.5 mg IM Q4H PRN PRN PRN Reason: NAUSEA/VOMITING Last Admin: 10/17/19 09:34 Dose: 12.5 mg Documented by: Sodium Chloride () 10 - 40 ml IV UD PRN PRN Reason: SALINE FLUSH Last Admin: 10/17/19 06:18 Dose: 10 ml Documented by: Sodium Chloride () 10 - 40 ml IV UD PRN PRN Reason: SALINE FLUSH Zolpidem Tartrate (Ambien (Generic)) 5 mg PO QHS PRN PRN PRN Reason: INSOMNIA STROKE Vital Signs/Narrative: Vital Signs Pulse Resp BP 10/18/19 06:00 77 12 163/72 H 10/18/19 05:00 74 11 L 155/70 H Medical Necessity - Tobacco Use Smoking Status: Former smoker Tobacco Use: Non-smoker Assessment/Plan All Active Problems Hypertensive emergency (Acute) Patient is an 84-year-old lady admitted with severe headache, slurred speech disorientation and some ataxia. Patient was found to have markedly elevated blood pressure with systolic of 221/93 admitted to the intensive care unit as a case of acute hypertensive emergency started on Cardene drip 1. Acute hypertensive emergency ?Patient admitted to the intensive care unit started on Cardene drip which is currently being titrated to keep systolic less than 140. Patient is on a number of multiple antihypertensives. With her blood pressure being markedly elevated plan is to rule out secondary causes. As part of evaluation ordered renal arterial duplex ?10/17/2019:Patient did experience significant rise her blood pressure during the night with systolic as high as 194. This was accompanied by headache, lightheadedness and nausea. Did receive hydralazine PRN. Renal duplex obtained the day prior did not show any evidence of renal artery stenosis. With patient experiencing episodic rise in her blood pressure did order 24-hour urine metanephrines to rule out pheochromocytoma ?10/18/2019: Had a uneventful night. Stroke alert was called after patient NIH was reported to be 10. Underwent subsequent evaluation with CT and CTA of the head and neck which only demonstrated tiny old lacunar infarct on the right basal ganglia. Telemetry neurology was consulted recommendation is for patient blood pressure to be kept between 150-170 systolic 2. Suspected CVA ?Patient had difficulty with speech with some ataxia. MRI of the head and neck ordered to rule out posterior circulation CVA. Patient is currently being monitored in ICU with NIH patient's family had apparently declined TPA in the emergency department ?10/17/2019 MRI obtained the day prior did not show any evidence of acute CVA 10/18/2019; repeat stroke work-up during the night came back unremarkable. Did explain to patient if she were to experience recurrent symptoms plan will be to transfer patient to tertiary care center her preference would be the [facility]. 3. Stage III chronic kidney disease ?Creatinine on admission was 1.46 did improve with rehydration 4. History of breast CA ?Status post lumpectomy and radiation currently remains in Remission 5. Hypothyroidism ~patient is on levothyroxine home dose continued 6. Microscopic colitis ~ Patient is on budesonide did continue 7. DVT prophylaxis SC Heparin Code Visit Inpatient E&M: 66677 Subs Hosp L2
[2019-10-18] MEDS: 0.9% Normal Saline 1,000 ML 75 ML IV (08:41)
[2019-10-18] MEDS: Acetaminophen 325 MG Tablet 650 MG PO (09:50)
[2019-10-18] MEDS: Labetalol 100 MG Tablet PO (09:52)
[2019-10-18] MEDS: Heparin Injection (Vial) 5,000 UNIT/ML VIAL 5000 UNIT SC (09:52)
[2019-10-18] MEDS: hydroCHLOROthiazide 12.5mg 12.5 MG PO (09:53)
[2019-10-18] MEDS: Losartan Potassium 50 MG Tablet PO (09:53)
[2019-10-18] MEDS: Aspirin 81 MG TAB.CHEW PO (09:53)
[2019-10-18] MEDS: amLODIPine 5 MG Tablet PO (09:54)
--- NOTE | 2019-10-18 10:44 | OT ---
Pt educated on LB dressing techniques
--- NOTE | 2019-10-18 12:45 | DCINST_ITS ---
- Discharge Diagnoses Current Active Problems: Current Active and Chronic Problems Hypertensive emergency (Acute) You will use the following diet at home:: Regular Discharge Activity: Return to Normal Activity Allergies/Adverse Reactions: Allergies iron Allergy (Verified 10/15/19 22:32) Unknown pentazocine [From [place]win] Allergy (Verified 10/15/19 22:32) Other scopolamine Allergy (Verified 10/15/19 22:32) Other Medications to take at Discharge Aspirin [Aspirin, Baby] 81 mg PO DAILY@0800 01/18/18 Levothyroxine [Synthroid] 88 mcg PO DAILY 01/18/18 Acetaminophen [Tylenol] 1,000 mg PO Q8 tablet 01/21/18 Cholecalciferol (Vitamin D3) [Vitamin D3] 25 mcg PO DAILY 10/16/19 Gabapentin [Neurontin] 200 mg PO QHS 10/16/19 Hydrochlorothiazide [Hctz] 12.5 mg PO DAILY 10/16/19 Labetalol [Trandate (Beta [place]asta)] 100 mg PO BID 10/16/19 Melatonin 5 mg PO QHS 10/16/19 Valsartan [Diovan] 160 mg PO DAILY 10/16/19 Amlodipine [Norvasc] 5 mg PO DAILY tab 10/18/19 Budesonide [Budesonide EC] 1 cap PO TID #0 10/18/19 Primary Care Physician: Miguelina Capellan MD [Primary Care Provider] - Test Results: Test results from this visit will be discussed in further detail at your follow- up appointment, if applicable. Proposed Discharge Date: 10/18/19
--- NOTE | 2019-10-18 12:56 | DS.PCM_ITS ---
Discharge Date and Diagnosis - Problem List Patient Problems: Active and Suspected Problems Stroke (Suspected) Hypertensive emergency (Acute) Date of Admission: 10/16/19 Date of Discharge: 10/18/19 - Primary Discharge Diagnosis Active and Suspected Problems Stroke (Suspected) Hypertensive emergency (Acute) - Secondary Discharge Diagnosis Chronic Problems HTN (hypertension) (Chronic) Hypothyroidism (Chronic) History of breast cancer (Chronic) R Breast CA s/p lumpectomy and radiation. Hyperlipidemia (Chronic) Microscopic colitis (Chronic) Vitamin D deficiency (Chronic) Allergic rhinitis (Chronic) Pain in right hip (Chronic) Hospital Course and Treatment Imaging Results: Clinical Impression(s) from Imaging Studies Brain CT 10/15/19 22:12 IMPRESSION: No acute intracranial abnormality. Chronic changes as above. ASPECT 10. Individualized dose optimization techniques were used for this CT. at 2227 Reported and signed by: Josue Galarza MD Electronically Signed: Josue Galarza MD at 22:25 EST Tel , Service support , ADDENDUM: 10/16/19 0000 IMPRESSION: No acute intracranial abnormality. Chronic changes as above. ASPECT 10. Individualized dose optimization techniques were used for this CT. at 2227 Reported and signed by: Josue Galarza MD N.B. : The above information has been verbally conveyed by Josue Galarza MD to Dr. Marshall Corrales MD, on 10/15/2019 23:53:31 (ET). Electronically Signed: Josue Galarza MD at 22:25 EST Tel , Service support , Chest X-Ray 10/15/19 22:46 IMPRESSION: Chronic interestitial changes. No radiographic evidence of acute cardiopulmonary disease. at 0009 Reported and signed by: Josue Galarza MD Electronically Signed: Josue Galarza MD at 0:08 EST Tel , Service support , Brain MRI 10/16/19 01:27 IMPRESSION: Involutional changes of the brain, as described above. No acute infarct. Electronically Signed: Julián North MD at 13:14 EST Tel , Service support , Brain CT 10/17/19 16:10 IMPRESSION: Chronic involutional changes of the brain. 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 There is no intracranial hemorrhage or evidence of acute infarct. Electronically Signed: Hossein Castro MD at 17:10 EST , Service support , Brain CT 10/17/19 22:07 IMPRESSION: Chronic involutional changes of the brain. There is again no evidence of intracranial hemorrhage or acute infarct. 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 If clinically indicated, CTA brain and/or MRI may be helpful for further evaluation at this time. N.B. : The above information has been verbally conveyed by Hossein Castro MD to LEONARDO ALMONTE on 10/17/2019 22:27:36 (ET). Electronically Signed: Hossein Castro MD at 22:30 EST , Service support , ADDENDUM: 10/17/19 2237 IMPRESSION: Chronic involutional changes of the brain. There is again no evidence of intracranial hemorrhage or acute infarct. 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 If clinically indicated, CTA brain and/or MRI may be helpful for further evaluation at this time. N.B. : The above information has been verbally conveyed by Hossein Castro MD to LEONARDO ALMONTE on 10/17/2019 22:27:36 (ET). Electronically Signed: Hossein Castro MD at 22:30 EST , Service support , ADDENDUM: 10/17/19 2239 IMPRESSION: Chronic involutional changes of the brain. There is again no evidence of intracranial hemorrhage or acute infarct. 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 If clinically indicated, CTA brain and/or MRI may be helpful for further evaluation at this time. N.B. : The above information has been verbally conveyed by Hossein Castro MD to Carol Patel , RN, on 10/17/2019 22:32:10 (ET). Electronically Signed: Hossein Castro MD at 22:30 EST , Service support , Head/Neck CTA 10/17/19 22:08 IMPRESSION: No arterial occlusion, aneurysm or vascular malformation. Individualized dose optimization techniques were used for this CT. at 2236 Reported and signed by: Triny Villanueva MD Electronically Signed: Triny Villanueva MD at 22:36 EST Tel , Service support , ADDENDUM: 10/17/19 2245 IMPRESSION: No arterial occlusion, aneurysm or vascular malformation. Individualized dose optimization techniques were used for this CT. at 2236 Reported and signed by: Triny Villanueva MD N.B. : The above information has been verbally conveyed by Triny Villanueva MD to Carol Patel RN, RN, on 10/17/2019 22:38:58 (ET). Electronically Signed: Triny Villanueva MD at 22:36 EST Tel , Service support , Operations: None Summary of Care Provided: Patient is an 84-year-old lady admitted with severe headache, slurred speech disorientation and some ataxia. Patient was found to have markedly elevated blood pressure with systolic of 221/93 admitted to the intensive care unit as a case of acute hypertensive emergency started on Cardene drip 1. Acute hypertensive emergency ?Patient admitted to the intensive care unit started on Cardene drip which is currently being titrated to keep systolic less than 140. Patient is on a number of multiple antihypertensives. With her blood pressure being markedly elevated plan is to rule out secondary causes. As part of evaluation ordered renal arterial duplex ?10/17/2019:Patient did experience significant rise her blood pressure during the night with systolic as high as 194. This was accompanied by headache, lightheadedness and nausea. Did receive hydralazine PRN. Renal duplex obtained the day prior did not show any evidence of renal artery stenosis. With patient experiencing episodic rise in her blood pressure did order 24-hour urine metanephrines to rule out pheochromocytoma ?10/18/2019: Had a uneventful night. Stroke alert was called after patient NIH was reported to be 10. Underwent subsequent evaluation with CT and CTA of the head and neck which only demonstrated tiny old lacunar infarct on the right basal ganglia. Telemetry neurology was consulted recommendation was for patient blood pressure to be kept between 150-170 systolic ?10/18/2019: Did update patient's family regarding events from the previous night. Family requested for patient to be transferred to [facility]. Did place a call patient was accepted for transfer. 2. Suspected CVA ?Patient had difficulty with speech with some ataxia. MRI of the head and neck ordered to rule out posterior circulation CVA. Patient is currently being monitored in ICU with NIH patient's family had apparently declined TPA in the emergency department ?10/17/2019 MRI obtained the day prior did not show any evidence of acute CVA 10/18/2019; repeat stroke work-up during the night came back unremarkable. Did explain to patient if she were to experience recurrent symptoms plan will be to transfer patient to tertiary care center her preference would be the [facility]. 3. Stage III chronic kidney disease ?Creatinine on admission was 1.46 did improve with rehydration 4. History of breast CA ?Status post lumpectomy and radiation currently remains in Remission 5. Hypothyroidism ~patient is on levothyroxine home dose continued 6. Microscopic colitis ~ Patient is on budesonide did continue 7. DVT prophylaxis SC Heparin Patient Problems: Active and Suspected Problems Stroke (Suspected) Hypertensive emergency (Acute) Objective: GENERAL: cooperative HEENT: Atraumatic; EYES; Anicteric, Normal Conjunctiva NECK; supple, normal thyroid, RESPIRATORY: Diminished to auscultation CARDIOVASCULAR: Regular S1 S2, GI: soft, normoactive bowel sounds, NEURO: Awake; no lateralizing signs. SKIN: No Rash PSYCH; Flat affect - Physical Exam Vitals/I&O's: Vital Signs Temp Pulse Resp BP Pulse Ox 98.1 F 86 18 150/63 H 97 10/18/19 08:45 10/18/19 08:45 10/18/19 08:45 10/18/19 08:45 10/18/19 08:45 Oxygen Flow Rate (L/min) 2 Oxygen Delivery Method Room Air Weight: 73.6 kg Body Mass Index (BMI) 25.5 Finger Stick Blood Glucose 104 Intake and Output for Last 24 Hours 10/16/19 10/17/19 10/18/19 23:59 23:59 23:59 Intake Total 2126.66 / 2326.66 2445 / 2520 1225 / 1225 Output Total 950 / 1450 950 / 1175 525 / 525 Balance 1176.66 / 876.66 1495 / 1345 700 / 700 Laboratory Results 10/17/19 16:19: POC Glucose 121 H 10/17/19 21:58: POC Glucose 97 10/18/19 06:15: WBC 5.3, RBC 3.08 L, Hgb 10.2 L, Hct 31.7 L, MCV 102.9 H, MCH 33.1 H, MCHC 32.2, RDW Std Deviation 53.5 H, RDW Coeff of Gabriella 14.2, Plt Count 161, MPV 9.7, Immature Gran % (Auto) 0.400, Neut % (Auto) 67.5, Lymph % (Auto) 17.6 L, [place] % (Auto) 11.1 H, Eos % (Auto) 3.0, Baso % (Auto) 0.4, Absolute Neuts (auto) 3.6, Absolute Lymphs (auto) 0.94, Nucleated RBC % 0 10/18/19 06:15: Sodium 143, Potassium 4.2, Chloride 113 H, Carbon Dioxide 26.0, Anion Gap 4 L, BUN 19 H, Creatinine 1.13 H, Estim Creat Clear Calc 35.31, Est GFR (MDRD) Af Amer 59 L, Est GFR (MDRD) Non-Af 49 L, BUN/Creatinine Ratio 16.8, Glucose 107 H, Calcium 8.0 L Current Medications Acetaminophen (Tylenol) 650 mg PO Q6H PRN PRN PRN Reason: Pain Score 1-5/Temp > 100.7 F Last Admin: 10/18/19 09:50 Dose: 650 mg Documented by: Amlodipine Besylate (Norvasc) 5 mg PO DAILY [facility] Last Admin: 10/18/19 09:54 Dose: 5 mg Documented by: Aspirin (Aspirin, Baby) 81 mg PO DAILY@0800 [facility] Last Admin: 10/18/19 09:53 Dose: 81 mg Documented by: Atorvastatin Calcium (Lipitor) 80 mg PO QHS [facility] Last Admin: 10/17/19 23:16 Dose: 80 mg Documented by: Budesonide (Budesonide Ec) 3 mg PO TID [facility] Last Admin: 10/18/19 06:18 Dose: Not Given Documented by: Gabapentin (Neurontin) 200 mg PO QHS [facility] Last Admin: 10/17/19 23:16 Dose: 200 mg Documented by: Heparin Sodium (Porcine) (Heparin Na) 5,000 unit SC Q12 [facility] Last Admin: 10/18/19 09:52 Dose: 5,000 unit Documented by: Hydralazine HCl (Apresoline Iv) 5 mg IV Q4H PRN PRN PRN Reason: SBP GREATER THAN 170 Hydrochlorothiazide () 12.5 mg PO DAILY [facility] Last Admin: 10/18/19 09:53 Dose: 12.5 mg Documented by: Sodium Chloride () 1,000 mls @ 75 mls/hr IV .[id number] [facility] Last Admin: 10/18/19 08:41 Dose: 75 mls/hr Documented by: Sodium Chloride () 250 mls @ 15 mls/hr IV .[id number] PRN PRN Reason: Saline Flush Sodium Chloride () 250 mls @ 15 mls/hr IV .[id number] PRN PRN Reason: Additional IVPB Infusion Sodium Chloride () 250 mls @ 15 mls/hr IV .[id number] PRN PRN Reason: Saline Flush Sodium Chloride () 250 mls @ 15 mls/hr IV .[id number] PRN PRN Reason: Additional IVPB Infusion Sodium Chloride () 250 mls @ 15 mls/hr IV .[id number] PRN PRN Reason: Saline Flush Sodium Chloride () 250 mls @ 15 mls/hr IV .[id number] PRN PRN Reason: Additional IVPB Infusion Labetalol HCl (Trandate) 100 mg PO BID [facility] Last Admin: 10/18/19 09:52 Dose: 100 mg Documented by: Levothyroxine Sodium (Synthroid) 88 mcg PO DAILY@0600 [facility] Last Admin: 10/18/19 06:18 Dose: 88 mcg Documented by: Losartan Potassium (Cozaar) 50 mg PO DAILY [facility] Last Admin: 10/18/19 09:53 Dose: 50 mg Documented by: Morphine Sulfate () 1 - 2 mg IV Q3H PRN PRN PRN Reason: Pain Score 6-10/10 Last Admin: 10/17/19 09:32 Dose: 2 mg Documented by: Ondansetron HCl (Zofran) 4 mg IV Q8H PRN PRN PRN Reason: NAUSEA/VOMITING Last Admin: 10/17/19 06:16 Dose: 4 mg Documented by: Promethazine HCl (Phenergan) 12.5 mg IM Q4H PRN PRN PRN Reason: NAUSEA/VOMITING Last Admin: 10/17/19 09:34 Dose: 12.5 mg Documented by: Sodium Chloride () 10 - 40 ml IV UD PRN PRN Reason: SALINE FLUSH Last Admin: 10/17/19 06:18 Dose: 10 ml Documented by: Sodium Chloride () 10 - 40 ml IV UD PRN PRN Reason: SALINE FLUSH Zolpidem Tartrate (Ambien (Generic)) 5 mg PO QHS PRN PRN PRN Reason: INSOMNIA Discharge Activity: Return to Normal Activity Home Medications: Medications to take at Discharge Aspirin [Aspirin, Baby] 81 mg PO DAILY@0800 01/18/18 Levothyroxine [Synthroid] 88 mcg PO DAILY 01/18/18 Acetaminophen [Tylenol] 1,000 mg PO Q8 tablet 01/21/18 Cholecalciferol (Vitamin D3) [Vitamin D3] 25 mcg PO DAILY 10/16/19 Gabapentin [Neurontin] 200 mg PO QHS 10/16/19 Hydrochlorothiazide [Hctz] 12.5 mg PO DAILY 10/16/19 Labetalol [Trandate (Beta [place])] 100 mg PO BID 10/16/19 Melatonin 5 mg PO QHS 10/16/19 Valsartan [Diovan] 160 mg PO DAILY 10/16/19 Amlodipine [Norvasc] 5 mg PO DAILY tab 10/18/19 Budesonide [Budesonide EC] 1 cap PO TID #0 10/18/19 Primary Care Physician: Miguelina Capellan MD [Primary Care Provider] - Disposition: [facility] Patient Condition:: Fair Medical Necessity - Tobacco Use Smoking Status: Former smoker Tobacco Use: Non-smoker Meaningful Use Info Meaningful Use Diagnoses (Choose all that apply): None applicable Code Visit Inpatient E&M: 49145 Disch Hosp
== END 2019-10-18 14:05 | disposition short-term general hospital (02) | DRG 305 ==
LOC: ED 10-16 00:24 → ICU 10-16 00:51
PROVIDERS: Admitting Provider Hospitalist; Emergency Provider Emergency Medicine; Family Provider Internal Medicine; PCP Internal Medicine; Visit Provider Internal Medicine
DX: I16.1 Hypertensive emergency (principal); I67.4 Hypertensive encephalopathy; R29.701 NIHSS score 1; E55.9 Vitamin D deficiency, unspecified; E03.9 Hypothyroidism, unspecified; K52.839 Microscopic colitis, unspecified; N18.3 Chronic kidney disease, stage 3 (moderate); I12.9 Hypertensive chronic kidney disease with stage 1 through stage 4 chronic kidney disease, or unspecified chronic kidney disease; Z87.891 Personal history of nicotine dependence; Z85.3 Personal history of malignant neoplasm of breast; Z92.3 Personal history of irradiation
CPT/HCPCS: 70450; 70496; 70498; 70551; 71045; 80048; 80061; 82962; 83735; 84484; 85025; 85610; 85730; 92507; 92522; 92610; 93005; 93306; 93880; 93975; 97116; 97162; 97166; 97530; 97535; 99251; 99285; J7030; J7050; Q9957; Q9967; A4216; G0463; J2405

== ENCOUNTER 2023-11-06 11:49 | Emergency (ER) | payer MEDICARE, OTHER, SELFPAY ==
[2023-11-06 11:49] VITALS: BP 198/87; PULSE 75; RESP 16; TEMP 35.3; O2SAT 98; BMI 21.9
--- NOTE | 2023-11-06 12:01 | RAD_ITS ---
STUDY: X-RAY CHEST REASON FOR EXAM: Female, 88 years old. chest pain TECHNIQUE: PA and lateral views of the chest. COMPARISON: 10/15/2019 FINDINGS: Lungs are hyperexpanded with chronic interstitial changes, no superimposed acute pulmonary process. There is no demonstrated pleural abnormality. Normal size heart. Normal mediastinum and david. Normal visualized pulmonary arteries. Normal visualized aortic arch and descending thoracic aorta. There are diffuse degenerative changes of the visualized thoracic spine. Normal visualized ribs, clavicles, and shoulders. There is no demonstrated abnormality of the visualized soft tissue structures of the upper abdomen. RAD/Chest PA and Lateral IMPRESSION: Hyperexpanded lungs with chronic interstitial changes, no superimposed acute pulmonary process Electronically Signed: Zafar Edwards MD at 12:45 EST ,
--- NOTE | 2023-11-06 12:15 | ED.VIS.CHEST ---
HPI <JOHNNA Dueñas - Last Filed: 11/06/23 15:33> History of Present Illness Chief Complaint: Chest Pain Narrative Narrative: Patient presenting today with cold-like symptoms that she has had over the past 3 weeks. She reports that she has had nasal congestion, nonproductive cough, intermittent headaches and nausea, and intermittent sharp midsternal chest pain. Nothing seems to make the chest pain better or worse. She is unable to quantify how long the chest pain lasts. She reports that several members of her family have been sick with similar symptoms over the past few weeks. She denies any fevers, chills, vomiting, history of CAD, and abdominal pain. PMH includes hypertension and CHF. PE Risk Factors: Negative for Recent Travel/Surgery, Recent Immobilization or Prior DVT or PE PFSH <JOHNNA Dueñas - Last Filed: 11/06/23 15:33> PFSH Medical History CHF (congestive heart failure) Home Medications aspirin 81 mg chewable tablet 81 mg PO DAILY@0800 heart 01/18/18 [History Last Taken Unknown] levothyroxine 88 mcg tablet 88 mcg PO DAILY thyroid 01/18/18 [History Last Taken 01/30/18] acetaminophen 500 mg tablet 1,000 mg (2 x 500 mg) PO Q8 01/21/18 [Rx Last Taken 02/01/18] cholecalciferol (vitamin D3) 25 mcg (1,000 unit) capsule 25 mcg PO DAILY 10/16/19 [History Last Taken Unknown] gabapentin 100 mg capsule 200 mg PO QHS 10/16/19 [History Last Taken Unknown] hydrochlorothiazide 25 mg tablet 12.5 mg PO DAILY 10/16/19 [History Last Taken Unknown] labetalol 200 mg tablet 100 mg PO BID 10/16/19 [History Last Taken Unknown] melatonin 5 mg capsule 5 mg PO QHS 10/16/19 [History Last Taken Unknown] valsartan 160 mg tablet 160 mg PO DAILY 10/16/19 [History Last Taken Unknown] amlodipine 5 mg tablet 5 mg PO DAILY 10/18/19 [Rx Last Taken Unknown] budesonide 3 mg capsule,delayed,extended release 1 cap PO TID ##0 10/18/19 [Rx Last Taken Unknown] clonidine 0.1 mg/24 hr weekly transdermal patch 11/06/23 [History Last Taken Unknown] furosemide 20 mg tablet mg 11/06/23 [History Last Taken Unknown] ondansetron 4 mg disintegrating tablet 4 mg PO Q8H PRN PRN Nausea #10 tabs 11/06/23 [Rx Last Taken Unknown] Allergy/AdvReac Type Severity Reaction Status Date / Time iron Allergy Unknown Verified 11/06/23 11:57 pentazocine [From [facility]] Allergy Other Verified 11/06/23 11:57 scopolamine Allergy Other Verified 11/06/23 11:57 Social History Smoking Status: Former smoker ROS <JOHNNA Dueñas - Last Filed: 11/06/23 15:33> ROS ED Constitutional Constitutional ED: Denies chills or fever(s) ENT ENT ED: Reports nasal congestion Cardiovascular Cardiovascular: Reports chest pain; Denies palpitations Respiratory/Chest Respiratory/Chest: Reports cough; Denies dyspnea Gastrointestinal Gastrointestinal: Reports nausea; Denies abdominal pain, diarrhea or vomiting Genitourinary Genitourinary ED: Denies dysuria, hematuria or urinary urgency Musculoskeletal Musculoskeletal: Denies arthralgias or myalgias Integumentary Denies rash Neurologic Neurologic: Denies weakness EXAM <JOHNNA Dueñas - Last Filed: 11/06/23 15:33> Physical Exam Const Vital Signs: 11/06/23 11:49 11/06/23 11:55 11/06/23 13:44 Temperature 95.6 F L Temperature Source Temporal Pulse Rate 75 63 Respiratory Rate 16 Respiratory Effort Normal Respiratory Pattern Normal Blood Pressure 198/87 H 178/81 H Blood Pressure Mean 124 113 Pulse Ox 98 Oxygen Delivery Method Room Air Positive well nourished, well developed and no apparent distress General Appearance ED: well developed HEENT Reports normocephalic and head/scalp atraumatic Mouth ED: Yes moist mucous membranes normal Eyes PERRL and EOMs intact bilaterally Neck full ROM and supple Chest Wall inspection of chest normal Resp normal respiratory effort and clear to auscultation bilaterally Cardio regular rate and regular rhythm GI soft to palpation, non-tender, non-distended and no masses Back/Spine normal ROM and normal to inspection Extremity normal to inspection and full ROM Neuro oriented x3, CN's II-XII intact bilaterally, moves all extremities, no focal motor deficits and no sensory deficits noted Sensorium / Orientation: awake and alert Psych mental status grossly normal and thought process normal Skin no rashes or lesions noted and no wounds <Dr. Alberto Bernal MD - Last Filed: 11/06/23 22:39> Physical Exam Const Vital Signs: 11/06/23 11:49 11/06/23 11:55 11/06/23 13:44 Temperature 95.6 F L Temperature Source Temporal Pulse Rate 75 63 Respiratory Rate 16 Respiratory Effort Normal Respiratory Pattern Normal Blood Pressure 198/87 H 178/81 H Blood Pressure Mean 124 113 Pulse Ox 98 Oxygen Delivery Method Room Air MDM <JOHNNA Dueñas - Last Filed: 11/06/23 15:33> [facility] MDM Narrative Medical decision making narrative: Patient presenting with midsternal sharp chest pain that she has had intermittently over the past few weeks. She has had a cold-like symptoms which sound consistent with viral illness. She will be tested for COVID, flu, and RSV. She is nontoxic-appearing and in no acute distress, vitals are unremarkable aside from being hypertensive. However, she reports that she did not take her blood pressure medicine yet today. Cardiac labs will be obtained to rule out ACS. She does report feeling nauseous. She will be given Zofran and a GI cocktail. On reexamination she reports mild improvement of her symptoms. Her troponin is 10. Creatinine 1.4 and BUN 33, this is slightly increased from previous visit. I will give patient a prescription for Zofran, she does have a follow-up appointment with her PCP soon. I have given her return instructions and she will be discharged home in stable condition. She is comfortable with plan. Lab Data Attestation: I reviewed the patient's lab results. Lab results narrative: H&H 11 and 33.9, this is consistent with previous labs. BUN 33, creatinine 1.4, GFR 38 Labs: Laboratory Results - last 24 hr 11/06/23 12:10 WBC 7.1 RBC 3.47 L Hgb 11.0 L Hct 33.9 L MCV 97.7 MCH 31.7 MCHC 32.4 RDW Std Deviation 47.7 H RDW Coeff of Gabriella 13.2 Plt Count 225 MPV 9.8 Immature Gran % (Auto) 0.400 Neut % (Auto) 65.5 Lymph % (Auto) 23.0 Sebastian % (Auto) 10.0 Eos % (Auto) 0.8 Baso % (Auto) 0.3 Absolute Neuts (auto) 4.6 Absolute Lymphs (auto) 1.63 Nucleated RBC % 0 Sodium 140 Potassium 4.1 Chloride 109 H Carbon Dioxide 27.0 Anion Gap 4 L BUN 33 H Creatinine 1.40 H Estim Creat Clear Calc 26.50 Est GFR (MDRD) Af Amer 46 L Est GFR (MDRD) Non-Af 38 L BUN/Creatinine Ratio 23.6 H Glucose 106 Calcium 9.4 Troponin I High Sens 10 Radiography X-Ray: Read by ED Physician and Read by Radiologist Diagnostic Testing: Clinical Impression(s) from Imaging Studies Chest X-Ray 11/06/23 12:01 IMPRESSION: Hyperexpanded lungs with chronic interstitial changes, no superimposed acute pulmonary process Electronically Signed: Zafar Edwards MD at 12:45 EST Reading Location ID and State: [address] [place] [address] , Service support , EKG Initial EKG: Comments: 73 bpm, normal sinus rhythm, no ST elevation, no signs of cardiac ischemia, reviewed and interpreted by attending ED physician. <Dr. Alberto Bernal MD - Last Filed: 11/06/23 22:39> [facility] Lab Data Labs: Laboratory Results - last 24 hr 11/06/23 12:10 WBC 7.1 RBC 3.47 L Hgb 11.0 L Hct 33.9 L MCV 97.7 MCH 31.7 MCHC 32.4 RDW Std Deviation 47.7 H RDW Coeff of Gabriella 13.2 Plt Count 225 MPV 9.8 Immature Gran % (Auto) 0.400 Neut % (Auto) 65.5 Lymph % (Auto) 23.0 Sebastian % (Auto) 10.0 Eos % (Auto) 0.8 Baso % (Auto) 0.3 Absolute Neuts (auto) 4.6 Absolute Lymphs (auto) 1.63 Nucleated RBC % 0 Sodium 140 Potassium 4.1 Chloride 109 H Carbon Dioxide 27.0 Anion Gap 4 L BUN 33 H Creatinine 1.40 H Estim Creat Clear Calc 26.50 Est GFR (MDRD) Af Amer 46 L Est GFR (MDRD) Non-Af 38 L BUN/Creatinine Ratio 23.6 H Glucose 106 Calcium 9.4 Troponin I High Sens 10 Radiography Diagnostic Testing: Clinical Impression(s) from Imaging Studies Chest X-Ray 11/06/23 12:01 IMPRESSION: Hyperexpanded lungs with chronic interstitial changes, no superimposed acute pulmonary process Electronically Signed: Zafar Edwards MD at 12:45 EST Reading Location ID and State: [address] [place] [address] , Service support , Treatment and Re-Evaluation Comments:: I have personally performed a face to face assessment of the patient and have reviewed the RONNIE Note. I performed a substantive portion of the visit including all aspects of the following. My carrasquillo findings include: History is 3 weeks of URI symptoms, felt better yesterday and worse today and now concerned, although she has no new symptoms or dyspnea. Midsternal sharp nonpleuritic chest discomfort is not new. Exam is clear to auscultation throughout, heart regular no sternal tenderness, no crepitus or step-off, conversive in full sentences. Medical Decison Making Labs, EKG, chest x-ray, viral swab reasonable to evaluate for possible infectious etiology, cardiopulmonary etiologies but most likely etiology is viral and supportive care is all that is likely needed. Follow-up advised. Other additions or changes: [None] Discharge Plan Triage Chief Complaint: Chest Pain Other Complaint: Cold Sx Nausea/Vomiting ED Midlevel Provider: Armida Mason ED Provider: Alberto Bernal Dx/Rx/DC Orders Clinical Impression: Viral illness, Chest pain, unspecified, Nausea Instructions: ED URI, Viral, No Abx (Adult) Prescriptions: New ondansetron 4 mg tablet,disintegrating 4 mg PO Q8H PRN PRN (Reason: Nausea) Qty: 10 0RF No Action levothyroxine 88 MCG tablet 88 mcg PO DAILY aspirin 81 MG tablet,chewable 81 mg PO DAILY@0800 acetaminophen 500 MG tablet 1,000 mg PO Q8 0RF gabapentin 100 MG capsule 200 mg PO QHS labetalol 200 MG tablet 100 mg PO BID hydrochlorothiazide 25 MG tablet 12.5 mg PO DAILY valsartan 160 MG tablet 160 mg PO DAILY cholecalciferol (vitamin D3) 25 MCG capsule 25 mcg PO DAILY melatonin 5 MG capsule 5 mg PO QHS amlodipine 5 MG tablet 5 mg PO DAILY 0RF budesonide 3 MG capsule,delayed,extend.release 1 cap PO TID Qty: 0 0RF Patient Comments: TAKE 1 CAPSULE BY MOUTH EVERY DAY clonidine 0.1 mg/24 hr patch weekly Patient Comments: Apply 1 patch topically one time a week as directed furosemide 20 mg tablet Patient Comments: TAKE 1 TABLET BY MOUTH EVERY WEDNESDAY,WEDNESDAY,WEDNESDAY (0600). Primary Care Provider: Miguelina Capellan Referrals: Miguelina Capellan MD [Primary Care Provider] - 3-5 Days Activity Restrictions/Additional Instructions: Please return for any worsening of your symptoms. Stay well-hydrated. Disposition Disposition: Home, Self Care Discharge Date/Time: 11/06/23 13:46
[2023-11-06 12:16] LABS: Absolute Lymphocyte Count 1.63 X10^3/uL (0.83-4.51); Absolute Neutrophil Count 4.6 X10^3/uL (2.0-7.7); Basophil# 0.02 X10^3/uL; Basophil% 0.3 % (0-1); Eosinophil# 0.06 X10^3/uL; Eosinophils% 0.8 % (0-5); Hematocrit 33.9 % (37-47); Lymphocyte # 1.63 X10^3/ul (0.83-4.51); Mean Corp Hgb Conc 32.4 g/dL (32-36); Mean Corpuscular Hgb 31.7 pg (27.0-32.0); Mean Corpuscular Volume 97.7 fL (81-99); Mean Platelet Vol. 9.8 fl (6.2-12.0); Monocyte# 0.71 X10^3/uL; NRBC Flagged by Analyzer 0 % (0-5); Neutrophil # 4.63 X10^3/uL (2.7-7.7); Neutrophil % 65.5 % (47-70); Platelet Count 225 K/mm3 (150-450); RBC Distribution Width CV 13.2 % (11.6-14.6); RBC Distribution Width SD 47.7 fl (35.1-43.9); Red Blood Count 3.47 M/mm3 (4.2-5.4); White Blood Count 7.1 K/mm3 (4.4-11.0)
[2023-11-06] MEDS: Mag Hydrox/Al Hydrox/Simeth 30 ML UDC PO (12:30)
[2023-11-06] MEDS: Ondansetron 4 MG/2 ML Vial IV (12:30)
[2023-11-06 12:32] LABS: Anion Gap 4 (5-15); BUN 33 mg/dL (7-18); BUN/Creat Ratio 23.6 RATIO (10-20); Calcium,Total 9.4 mg/dL (8.5-10.1); Chloride 109 mmol/L (98-107); EST Glomerular Filtration Rate 38 mL/min (>60); Est Glom Filt Rate - Afr Amer 46 mL/min (>60); Glucose 106 mg/dL (74-106); Potassium 4.1 mmol/L (3.5-5.1); Sodium Level 140 mmol/L (136-145); Troponin-I HS 10 pg/mL (3.0-54.0)
--- OUTSIDE RECORDS SUMMARY | 2023-11-06 12:35 | XMS RPT_ITS | CCD ---
Author Name Unknown Address [id number] [place] [address] Organization [facility] Care Team Providers Care Supervisor Display Fabrication Name Role Phone JAMAL, NOEMI E Unavailable Unavailable ITIN, LIU Unavailable Unavailable JAMAL, NOEMI E Unavailable Unavailable SALEMANUEL QUANBETH Gilbert Unavailable Unavailable JAMAL, NOEMI Unavailable Unavailable SALAY, MELANIE Unavailable Unavailable JAMAL, NOEMI Unavailable Unavailable SALAY, MELANIE Unavailable Unavailable JAMAL, NOEMI Unavailable Unavailable ITIN, LIU Unavailable Unavailable SALAY, MELANIE Unavailable Unavailable Miguelina Clemente MD Primary Care Provider Erwin Alfred MD Unavailable [phone] Miguelina Clemente MD Primary Care Provider [phone] Erwin Alfred MD Unavailable Miguelina Clemente MD Primary Care Provider [phone] Erwin Alfred MD Unavailable Miguelina Clemente MD Primary Care Provider [phone] Erwin Alfred MD Unavailable MIGUELINA CLEMENTE Primary Care Unavailable ALLIE CHOUDHARY Attending Unavailable MIGUELINA CLEMENTE Primary Care Unavailable BERTHA YANEZ Referring Unavailable LIAM ELLIOTT Attending Unavailable MIGUELINA CLEMENTE Primary Care Unavailable MIGUELINA CLEMENTE Referring Unavailable MIGUELINA CLEMENTE Primary Care Unavailable MELO ARANGO Attending Unavailable WILLIAM BAUTISTA Referring Unavailabl e MIGUELINA CLEMENTE Primary Care Unavailable MIGUELINA CLEMENTE Referring Unavailable MIGUELINA CLEMENTE Primary Care Unavailable SALAY, MIGUELINA M Primary Care Unavailable WILLIAM BAUTISTA Attending Unavailabl e SALAY, MIGUELINA M Primary Care Unavailable WILLIAM BAUTISTA Referring Unavailabl e SALAY, MIGUELINA M Primary Care Unavailable SALAY, MIGUELINA M Primary Care Unavailable ERWIN MEYERS Attending Unavailable SALAY, MIGUELINA M Primary Care Unavailable ALICIA ESCOBEDO Attending Unavailable SALAY, MIGUELINA M Primary Care Unavailable SALAY, MIGUELINA M Referring Unavailable SALAY, MIGUELINA M Primary Care Unavailable PETER LUNA Referring Unavaila ble SALAY, MIGUELINA M Primary Care Unavailable SALAY, MIGUELINA M Primary Care Unavailable BERTHA YANEZ Referring Unavailable LIAM ELLIOTT Attending Unavailable SALAY, MIGUELINA M Referring Unavailable SALAY, MIGUELINA M Primary Care Unavailable KELSI TAYLOR Attending Unavailable SALAY, MIGUELINA M Primary Care Unavailable BERTHA YANEZ Referring Unavailable LIAM ELLIOTT Attending Unavailable SALAY, MIGUELINA M Primary Care Unavailable SALAY, MIGUELINA M Primary Care Unavailable SALAY, MIGUELINA M Referring Unavailable SALAY, MIGUELINA M Primary Care Unavailable WILLIAM BAUTISTA Referring Unavailabl e WILLIAM BAUTISTA Attending Unavailabl e SALAY, MIGUELINA M Primary Care Unavailable VIRGIL GOMEZ Referring Unavailable SALAY, MIGUELINA M Referring Unavailable SALAY, MIGUELINA M Primary Care Unavailable SALAY, MIGUELINA M Attending Unavailable SALAY, MIGUELINA M Primary Care Unavailable SALAY, MIGUELINA M Primary Care Unavailable MELO ARANGO Referring Unavailable SALAY, MIGUELINA M Primary Care Unavailable SALAY, MIGUELINA M Primary Care Unavailable SALAY, MIGUELINA M Referring Unavailable CRISTINA GREENE Attending Unavailable SALAY, MIGUELINA M Primary Care Unavailable VIRGIL GOMEZ Attending Unavailable SALAY, MIGUELINA M Primary Care Unavailable SALAY, MIGUELINA M Referring Unavailable SALAY, MIGUELINA M Primary Care Unavailable SALAY, MIGUELINA M Referring Unavailable BERTHA YANEZ Attending Unavailable SALAY, MIGUELINA M Primary Care Unavailable SALAY, MIGUELINA M Attending Unavailable MIGUELINA CLEMENTE Primary Care Unavailable MIGUELINA CLEMENTE Referring Unavailable MIGUELINA CLEMENTE Primary Care Unavailable MIGUELINA CLEMENTE Attending Unavailable MIGUELINA CLEMENTE Primary Care Unavailable MICHELE, WILLIAM Referring Unavailabl e MIGUELINA CLEMENTE M Primary Care Unavailable MIGUELINA CLEMENTE M Referring Unavailable MIGUELINA CLEMENTE Primary Care Unavailable MIGUELINA CLEMENTE Attending Unavailable MIGUELINA CLEMENTE Primary Care Unavailable SALAVELINAMIGUELINA Referring Unavailable SALAVELINAMIGUELINA Primary Care Unavailable Allergies Allergy Classification Reported Allergen(s) Allergy Type Date of Onset Reaction(s) Facility (20 sources) iron; Translations: [IRON] Drug Allergy 5 GI Upset [facility] Repository (20 sources) pentazocine; Translations: [PENTAZOCINE LACTATE] Drug Allergy 9 Mental Status Change [facility] Repository (20 sources) scopolamine; Translations: [SCOPOLAMINE] Drug Allergy 2 Mental Status Change [facility] Repository (20 sources) verapamil; Translations: [VERAPAMIL HCL] Drug Allergy 6 GI Upset [facility] Repository (20 sources) amLODIPine; Translations: [AMLODIPINE] Drug Allergy 0 Other: See Comments [facility] Work Phone: (20 sources) atorvastatin; Translations: [ATORVASTATIN] Drug Allergy 0 Myalgia [facility] Work Phone: (20 sources) hydrALAZINE; Translations: [HYDRALAZINE] Drug Allergy 0 Intolerance [facility] (20 sources) Losartan; Translations: [LOSARTAN] Drug Allergy 0 Other: See Comments [facility] Work Phone: (20 sources) Spironolactone; Translations: [SPIRONOLACTONE ] Drug Allergy 0 Intolerance [facility] Work Phone: (9 sources) Thiazides; Translations: [THIAZIDES] Drug Intolerance 0 Contraindicatio n-Medical Surgical [facility] Work Phone: (20 sources) Thiazides Drug Intolerance 0 Contraindicatio n-Medical Surgical [facility] Work Phone: (20 sources) empagliflozin; Translations: [EMPAGLIFLOZIN] Drug Allergy 3 Diarrhea [facility] Work Phone: Medications Current Medications Medication Drug Class(es) Dates Sig (Normalized) Sig (Original) doxycycline hyclate 100 mg oral tablet (1 source) Tetracycline-clas s Drug Start: 01-30-2023 End: 02-09-2023 take 1 tablet by mouth twice daily doxycycline (VIBRA-TABS) 100 mg tablet Take 1 tablet by mouth twice daily for 10 days. 20 tablet 0 01/30/2023 02/09/2023 Active Completed/Discontinued Medications Medication Drug Class(es) Dates Sig (Normalized) Sig (Original) aspirin 81 mg delayed release oral tablet (11 sources) Platelet Aggregation Inhibitor, Nonsteroidal Anti-inflammatory Drug Start: 10-26-2019 End: 05-14-2022 take 1 tablet by mouth once daily aspirin, enteric coated (ECOTRIN LOW STRENGTH) 81 mg EC tablet Indications: Iron deficiency anemia secondary to inadequate dietary iron intake Take 1 tablet by mouth once daily. 0 10/26/2019 05/14/2022 Discontinued Problems Active Problems Problem Classification Problem Date Documented Da te Episodic/Chronic Abdominal pain (7 sources) Tenderness of epigastrium; Translations: [Epigastric abdominal tenderness] Onset: 3 Episodic Cancer of breast (20 sources) Malignant tumor of breast ; Translations: [Malignant neoplasm of unspecified site of unspecified female breast] Onset: 1 11-26-2021 Chronic Cardiac dysrhythmias (20 sources) Supraventricular tachycardia; Translations: [Supraventricular tachycardia] Onset: 7 08-13-2020 Chronic Chronic kidney disease (20 sources) Chronic kidney disease stage 3; Translations: [CKD (chronic kidney disease) stage 3, GFR 30-59 ml/min] Onset: 0 09-19-2020 Chronic Chronic kidney disease (1 source) Chronic kidney disease; Translations: [Stage 3 chronic kidney disease, unspecified whether stage 3a or 3b CKD (HCC)] Onset: 0 Complications of surgical procedures or medical care (20 sources) Menopausal symptom; 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 Congestive heart failure; nonhypertensive (20 sources) Chronic diastolic heart failure; Translations: [Chronic diastolic (congestive) heart failure] Onset: 0 11-26-2021 Chronic Coronary atherosclerosis and other heart disease (20 sources) Coronary atherosclerosis; Translations: [Atherosclerotic heart disease of redding coronary artery without angina pectoris] Onset: 3 11-26-2021 Chronic Deficiency and other anemia (20 sources) Anemia co-occurrent and due to chronic kidney disease stage 3; Translations: [Anemia due to stage 3 chronic kidney disease] Onset: 0 04-26-2020 Chronic Deficiency and other anemia (1 source) Anemia in chronic kidney disease; Translations: [Anemia due to stage 3b chronic kidney disease (HCC)] Onset: 0 Chronic Deficiency and other anemia (2 sources) Anemia; Translations: [Anemia, unspecified] Episodic Deficiency and other anemia (1 source) Deficiency and other anemia; Translations: [Anemia due to stage 3b chronic kidney disease (HCC)] Onset: 0 Essential hypertension (20 sources) Essential (primary) hypertension; Translations: [Essential hypertension] Onset: 7 04-03-2021 Chronic Genitourinary symptoms and ill-defined conditions (3 sources) Retention of urine; Translations: [Retention of urine, unspecified] Episodic Hypertension with complications and secondary hypertension (20 sources) Renovascular hypertension; Translations: [Hypertensive heart AND renal disease] Onset: 3 11-26-2021 Chronic Menopausal disorders (20 sources) Atrophy of vagina; Translations: [Postmenopausal atrophic vaginitis] 09-10-2015 Chronic Noninfectious gastroenteritis (20 sources) Collagenous colitis; Translations: [Collagenous colitis] Onset: 7 07-30-2017 Chronic Nonmalignant breast conditions (20 sources) Fibrocystic disease of breast; Translations: [Diffuse cystic mastopathy of unspecified breast] 04-10-2008 Chronic Nutritional deficiencies (20 sources) Vitamin D deficiency; Translations: [Vitamin D deficiency, unspecified] Onset: 7 10-13-2021 Chronic Osteoarthritis (20 sources) Osteoarthrosis of the carpometacarpal joint of the thumb; Translations: [Unilateral primary osteoarthritis of first carpometacarpal joint, left hand] Onset: 4 Chronic Other acquired deformities (2 sources) Thoracogenic scoliosis; 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, site unspecified] Chronic Other acquired deformities (8 sources) Other secondary scoliosis, site unspecified; Translations: [Disorder of bone and cartilage, unspecified] Onset: 3 08-06-2023 Chronic Other acquired deformities (1 source) Thoracogenic scoliosis, site unspecified; 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, unspecified spinal region] Onset: 3 Chronic Other aftercare (3 sources) Patient encounter status; Translations: [Encounter for therapeutic drug level monitoring] Episodic Other and ill-defined cerebrovascular disease (20 sources) Small vessel cerebrovascular disease; Translations: [Other cerebrovascular disease] Onset: 0 10-26-2019 Chronic Other bone disease and musculoskeletal deformities (7 sources) Idiopathic scoliosis; Translations: [Other idiopathic scoliosis, site unspecified] Onset: 3 08-06-2023 Chronic Other bone disease and musculoskeletal deformities (1 source) Other idiopathic scoliosis, site unspecified; Translations: [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] Onset: 3 Chronic Other connective tissue disease (1 source) Trigger thumb of left hand; Translations: [Trigger thumb, left thumb] Episodic Other ear and sense organ disorders (20 sources) Sensorineural hearing loss, bilateral; Translations: [Sensorineural hearing loss, bilateral] Onset: 1 01-15-2021 Chronic Other ear and sense organ disorders (1 source) Decreased hearing ; Translations: [Unspecified hearing loss, bilateral] 07-05-2023 Chronic Other gastrointestinal disorders (1 source) Difficulty swallowing pills; Translations: [Other specified symptoms and signs involving the digestive system and abdomen] Episodic Other lower respiratory disease (1 source) Rib pain; Translations: [Pleurodynia] Episodic Other lower respiratory disease (1 source) Dyspnea on exertion; Translations: [Other forms of dyspnea] 01-15-2023 Episodic Other nervous system disorders (20 sources) Disorder of brain; Translations: [Encephalopathy, unspecified] Onset: 0 12-22-2019 Chronic Other nervous system disorders (1 source) Other chronic pain; Translations: [Chronic thoracic back pain, unspecified back pain laterality] Onset: 3 Chronic Other screening for suspected conditions (not mental disorders or infectious disease) (1 source) Inconclusive mammography finding; Translations: [Inconclusive mammogram] Episodic Other upper respiratory infections (1 source) Pharyngitis; Translations: [Acute pharyngitis, unspecified] Episodic Residual codes; unclassified (2 sources) Postmenopausal state; Translations: [Asymptomatic menopausal state] 07-05-2023 Episodic Retinal detachments; defects; vascular occlusion; and retinopathy (20 sources) Retinal vessel finding; Translations: [Changes in retinal vascular appearance, unspecified eye] Onset: 7 11-10-2016 Chronic Spondylosis; intervertebral disc disorders; other back problems (20 sources) Cervical spondylosis without myelopathy; Translations: [Spondylosis without myelopathy or radiculopathy, cervical region] Onset: 7 08-26-2007 Chronic Spondylosis; intervertebral disc disorders; other back problems (20 sources) Chronic back pain ; Translations: [Dorsalgia, unspecified] Onset: 3 Episodic Thyroid disorders (20 sources) Hypothyroidism; Translations: [Hypothyroidism, unspecified] Onset: 3 11-26-2021 Chronic Unclassified (1 source) Unknown / UNK(Unknown) Onset: 7 Unclassified (1 source) NO SHOW Past or Other Problems Problem Classification Problem Date Documented Date Episodic/Chronic Acute and unspecified renal failure (1 source) Acute kidney failure, unspecified; Translations: [BRIGHT (acute kidney injury) (HCC)] Onset: 3 Episodic Biliary tract disease (1 source) Disease of gallbladder, unspecified; Translations: [Gallbladder disorder] Onset: 3 Episodic Calculus of urinary tract (20 sources) Urolithiasis ; Translations: [Urinary calculus, unspecified] Onset: 7 11-10-2016 Episodic Cancer of breast (20 sources) History of malignant neoplasm of breast; Translations: [Personal history of malignant neoplasm of breast] Onset: 2 08-13-2020 Episodic Cardiac dysrhythmias (2 sources) Palpitations; Translations: [Palpitations] Onset: 3 Episodic Deficiency and other anemia (20 sources) Iron deficiency anemia; Translations: [Iron deficiency anemia, unspecified] Onset: 0 12-15-2019 Episodic Nonmalignant breast conditions (20 sources) Mammographic microcalcification of breast; Translations: [Mammographic microcalcification found on diagnostic imaging of breast] Onset: 8 05-09-2008 Episodic Nonspecific chest pain (1 source) Chest pain, unspecified; Translations: [Chest pain, unspecified] Onset: 7 Episodic Other connective tissue disease (20 sources) Pain in left thumb; Translations: [Pain in left finger(s)] Onset: 2 Episodic Other connective tissue disease (20 sources) H/O: arthritis; Translations: [Personal history of other diseases of the musculoskeletal system and connective tissue] Onset: 0 05-02-2020 Episodic Other diseases of veins and lymphatics (20 sources) Venous stasis; Translations: [Other specified disorders of veins] Onset: 7 12-22-2016 Episodic Other inflammatory condition of skin (20 sources) Seborrheic dermatitis; Translations: [Seborrheic dermatitis, unspecified] Onset: 6 11-20-2015 Episodic Other inflammatory condition of skin (1 source) Seborrheic dermatitis, unspecified; Translations: [Seborrheic dermatitis] Onset: 6 Episodic Other lower respiratory disease (1 source) Other forms of dyspnea; Translations: [Exertional dyspnea] Onset: 3 Episodic Other non-epithelial cancer of skin (20 sources) Basal cell carcinoma of face; Translations: [Basal cell carcinoma of skin of other parts of face] Onset: 8 11-18-2011 Episodic Other nutritional; endocrine; and metabolic disorders (20 sources) Hyperuricemia; Translations: [Hyperuricemia without signs of inflammatory arthritis and tophaceous disease] Onset: 7 11-10-2016 Episodic Other nutritional; endocrine; and metabolic disorders (20 sources) Adult failure to thrive syndrome; Translations: [Adult failure to thrive] Onset: 1 04-03-2021 Episodic Other skin disorders (20 sources) Telogen effluvium; Translations: [Telogen effluvium] Onset: 5 10-06-2011 Episodic Other skin disorders (1 source) Other seborrheic keratosis; Translations: [Seborrheic keratosis] Onset: 3 Episodic Other skin disorders (1 source) Telogen effluvium; Translations: [Telogen effluvium] Onset: 1 Episodic Pleurisy; pneumothorax; pulmonary collapse (20 sources) Pleural effusion; Translations: [Pleural effusion, not elsewhere classified] Onset: 8 04-21-2018 Episodic Residual codes; unclassified (20 sources) H/O: radiation exposure; Translations: [Personal history of irradiation] Onset: 7 11-26-2021 Episodic Residual codes; unclassified (1 source) Asymptomatic menopausal state; Translations: [Asymptomatic postmenopausal state] Onset: 3 Episodic Varicose veins of lower extremity (20 sources) Venous varices; Translations: [Asymptomatic varicose veins of unspecified lower extremity] Onset: 7 08-26-2007 Episodic Viral infection (2 sources) Verruca vulgaris; Translations: [Viral wart, unspecified] Onset: 3 Episodic Results Test Name Value Interpretation Reference Range Facil ity Vital Signs Date Time Vital Sign Value Performing Clinician Faci lity 09-30-2023 11:48-0500 Body height 167.6 cm William Bautista MD Work Phone: [facility] 09-30-2023 11:48-0500 Body weight 59.88 kg William Bautista MD Work Phone: [facility] 09-30-2023 11:48-0500 Diastolic blood pressure 63 mm[Hg] William Bautista MD Work Phone: [facility] 09-30-2023 11:48-0500 Heart rate 70 /min William Bautista MD Work Phone: [facility] 09-30-2023 11:48-0500 Respiratory rate 15 /min William Bautista MD Work Phone: [facility] 09-30-2023 11:48-0500 SaO2% (BldA) [Mass fraction] 95 % William Bautista MD Work Phone: [facility] 09-30-2023 11:48-0500 Systolic blood pressure 155 mm[Hg] William Bautista MD Work Phone: [facility] 08-06-2023 11:11-0400 Body height 166.4 cm Bertha Yanez PA-C Work Phone: [facility] 08-06-2023 11:11-0400 Body weight 60.83 kg Bertha Yanez PA-C Work Phone: [facility] 08-06-2023 11:11-0400 Diastolic blood pressure 67 mm[Hg] Bertha OROPEZA-C Work Phone: [facility] 08-06-2023 11:11-0400 Heart rate 69 /min Bertha Yanez PA-C Work Phone: [facility] 08-06-2023 11:11-0400 SaO2% (BldA) [Mass fraction] 95 % Bertha Yanez PA-C Work Phone: [facility] 08-06-2023 11:11-0400 Systolic blood pressure 125 mm[Hg] Bertha OROPEZA-C Work Phone: [facility] 07-05-2023 13:43-0400 Diastolic blood pressure 60 mm[Hg] Miguelina Clemente MD Work Phone: [facility] 07-05-2023 13:43-0400 Systolic blood pressure 138 mm[Hg] Miguelina Clemente MD Work Phone: [facility] 07-05-2023 12:58-0400 Body height 168.9 cm Miguelina Clemente MD Work Phone: [facility] 07-05-2023 12:58-0400 Body temperature 97.7 [degF] Miguelina Clemente MD Work Phone: [facility] 07-05-2023 12:58-0400 Body weight 60.44 kg Miguelina Clemente MD Work Phone: [facility] 07-05-2023 12:58-0400 Heart rate 78 /min Miguelina Clmeente MD Work Phone: [facility] 07-05-2023 12:58-0400 SaO2% (BldA) [Mass fraction] 97 % Miguelina Clemente MD Work Phone: [facility] 03-23-2023 16:27-0400 Body height 167.6 cm Miguelina Clemente MD Work Phone: [facility] 03-23-2023 16:27-0400 Body temperature 98.2 [degF] Miguelina Clemente MD Work Phone: [facility] 03-23-2023 16:27-0400 Body weight 59.42 kg Miguelina Clemente MD Work Phone: [facility] 03-23-2023 16:27-0400 Diastolic blood pressure 62 mm[Hg] Miguelina Clemente MD Work Phone: [facility] 03-23-2023 16:27-0400 Heart rate 75 /min Miguelina Clemente MD Work Phone: [facility] 03-23-2023 16:27-0400 SaO2% (BldA) [Mass fraction] 96 % Miguelina Clemente MD Work Phone: [facility] 03-23-2023 16:27-0400 Systolic blood pressure 130 mm[Hg] Miguelina Clmeente MD Work Phone: [facility] 01-30-2023 09:47-0400 Body temperature 97.59 [degF] Kelsi Colby APPLICATION SUPPORT TECHNICIAN.[employer] Work Phone: [facility] 01-30-2023 09:47-0400 Body weight 60.78 kg Kelsi Colby APPLICATION SUPPORT TECHNICIAN.[employer] Work Phone: [facility] 01-30-2023 09:47-0400 Diastolic blood pressure 80 mm[Hg] Kelsi Colby APPLICATION SUPPORT TECHNICIAN.[employer] Work Phone: [facility] 01-30-2023 09:47-0400 Heart rate 82 /min Kelsi Colby APPLICATION SUPPORT TECHNICIAN.[employer] Work Phone: [facility] 01-30-2023 09:47-0400 Respiratory rate 16 /min Kelsi Colby APPLICATION SUPPORT TECHNICIAN.[employer] Work Phone: [facility] 01-30-2023 09:47-0400 SaO2% (BldA) [Mass fraction] 96 % Kelsi Colby APPLICATION SUPPORT TECHNICIAN.[employer] Work Phone: [facility] 01-30-2023 09:47-0400 Systolic blood pressure 144 mm[Hg] Kelsi Colby APPLICATION SUPPORT TECHNICIAN.[employer] Work Phone: [facility] 11-20-2022 11:00-0500 Body height 167.6 cm Melo Reay APPLICATION SUPPORT TECHNICIAN.CN P Work Phone: [facility] 11-20-2022 11:00-0500 Body weight 61.92 kg Melo Reay APPLICATION SUPPORT TECHNICIAN.CN P Work Phone: [facility] 11-20-2022 11:00-0500 Diastolic blood pressure 68 mm[Hg] Melo Reay APPLICATION SUPPORT TECHNICIAN.[employer] Work Phone: [facility] 11-20-2022 11:00-0500 Heart rate 76 /min Melo Reay APPLICATION SUPPORT TECHNICIAN.CN P Work Phone: [facility] 11-20-2022 11:00-0500 SaO2% (BldA) [Mass fraction] 95 % Melo Reay APPLICATION SUPPORT TECHNICIAN.[employer] Work Phone: [facility] 11-20-2022 11:00-0500 Systolic blood pressure 137 mm[Hg] Melo Reay APPLICATION SUPPORT TECHNICIAN.[employer] Work Phone: [facility] 10-05-2022 15:00-0500 Body temperature 97.2 [degF] Ramandeep Bogner PA-C Work Phone: [facility] 10-05-2022 15:00-0500 Body weight 60.24 kg Ramandeep Bogner PA-C Work Phone: [facility] 10-05-2022 15:00-0500 Diastolic blood pressure 84 mm[Hg] Ramandeep Bogner PA-C Work Phone: [facility] 10-05-2022 15:00-0500 Heart rate 81 /min Ramandeep Bogner PA-C Work Phone: [facility] 10-05-2022 15:00-0500 Respiratory rate 20 /min Ramandeep Bogner PA-C Work Phone: [facility] 10-05-2022 15:00-0500 SaO2% (BldA) [Mass fraction] 97 % Ramandeep Bogner PA-C Work Phone: [facility] 10-05-2022 15:00-0500 Systolic blood pressure 162 mm[Hg] Ramandeep Bogner PA-C Work Phone: [facility] 10-01-2022 17:18-0500 Diastolic blood pressure 60 mm[Hg] Miguelina Clemente MD Work Phone: [facility] 10-01-2022 17:18-0500 Systolic blood pressure 100 mm[Hg] Miguelina Clemente MD Work Phone: [facility] 10-01-2022 14:24-0500 Body temperature 98.01 [degF] Miguelina Clemente MD Work Phone: [facility] 10-01-2022 14:24-0500 Body weight 60.22 kg Miguelina Clemente MD Work Phone: [facility] 10-01-2022 14:24-0500 Heart rate 94 /min Miguelina Clemente MD Work Phone: [facility] 10-01-2022 14:24-0500 SaO2% (BldA) [Mass fraction] 96 % Miguelina Clemente MD Work Phone: [facility] 09-02-2022 13:33-0500 Body height 168.9 cm William Bautista MD Work Phone: [facility] 09-02-2022 13:33-0500 Body weight 60.33 kg William Bautista MD Work Phone: [facility] 09-02-2022 13:33-0500 Diastolic blood pressure 75 mm[Hg] William Bautista MD Work Phone: [facility] 09-02-2022 13:33-0500 Heart rate 70 /min William Bautista MD Work Phone: [facility] 09-02-2022 13:33-0500 Respiratory rate 15 /min William Bautista MD Work Phone: [facility] 09-02-2022 13:33-0500 SaO2% (BldA) [Mass fraction] 97 % William Bautista MD Work Phone: [facility] 09-02-2022 13:33-0500 Systolic blood pressure 154 mm[Hg] William Bautista MD Work Phone: [facility] 07-16-2022 11:54-0400 Diastolic blood pressure 77 mm[Hg] Miguelina Clemente MD Work Phone: [facility] 07-16-2022 11:54-0400 Systolic blood pressure 177 mm[Hg] Miguelina Clemente MD Work Phone: [facility] 07-16-2022 11:37-0400 Body temperature 98.01 [degF] Miguelina Clemente MD Work Phone: [facility] 07-16-2022 11:37-0400 Body weight 62.26 kg Miguelina Clemente MD Work Phone: [facility] 07-16-2022 11:37-0400 Heart rate 68 /min Miguelina Clemente MD Work Phone: [facility] 07-16-2022 11:37-0400 SaO2% (BldA) [Mass fraction] 97 % Miguelina Clemente MD Work Phone: [facility] 05-18-2022 09:46-0400 Body height 167.6 cm William Bautista MD Work Phone: [facility] 05-18-2022 09:46-0400 Body weight 62.32 kg William Bautista MD Work Phone: [facility] 05-18-2022 09:46-0400 Diastolic blood pressure 89 mm[Hg] William Bautista MD Work Phone: [facility] 05-18-2022 09:46-0400 Heart rate 64 /min William Bautista MD Work Phone: [facility] 05-18-2022 09:46-0400 SaO2% (BldA) [Mass fraction] 99 % William Bautista MD Work Phone: [facility] 05-18-2022 09:46-0400 Systolic blood pressure 187 mm[Hg] William Bautista MD Work Phone: [facility] 05-14-2022 10:28-0400 Body height 167.6 cm Allie Choudhary MD Work Phone: [facility] 05-14-2022 10:28-0400 Body weight 63.41 kg Allie Choudhary MD Work Phone: [facility] 05-14-2022 10:28-0400 Diastolic blood pressure 81 mm[Hg] Allie Choudhary MD Work Phone: [facility] 05-14-2022 10:28-0400 Heart rate 70 /min Allie Choudhary MD Work Phone: [facility] 05-14-2022 10:28-0400 Systolic blood pressure 176 mm[Hg] Allie Choudhary MD Work Phone: [facility] 04-17-2022 11:00-0400 Body height 166 cm Rosendo Rodgers MD Work Phone: [facility] 04-17-2022 11:00-0400 Body temperature 97.2 [degF] Rosendo Rodgers MD Work Phone: [facility] 04-17-2022 11:00-0400 Body weight 60.78 kg Rosendo Rodgers MD Work Phone: [facility] 04-17-2022 11:00-0400 Diastolic blood pressure 65 mm[Hg] Rosendo Rodgers MD Work Phone: [facility] 04-17-2022 11:00-0400 Heart rate 76 /min Rosendo Rodgers MD Work Phone: [facility] 04-17-2022 11:00-0400 Respiratory rate 20 /min Rosendo Rodgers MD Work Phone: [facility] 04-17-2022 11:00-0400 SaO2% (BldA) [Mass fraction] 98 % Rosendo Rodgers MD Work Phone: [facility] 04-17-2022 11:00-0400 Systolic blood pressure 134 mm[Hg] Rosendo Rodgers MD Work Phone: [facility] 04-14-2022 11:40-0400 Diastolic blood pressure 97 mm[Hg] Miguelina Clemente MD Work Phone: [facility] 04-14-2022 11:40-0400 Systolic blood pressure 171 mm[Hg] Miguelina Clemente MD Work Phone: [facility] 04-14-2022 11:23-0400 Body height 166.4 cm Miguelina Clemente MD Work Phone: [facility] 04-14-2022 11:23-0400 Body temperature 97.81 [degF] Miguelina Clemente MD Work Phone: [facility] 04-14-2022 11:23-0400 Body weight 61.24 kg Miguelina Clemente MD Work Phone: [facility] 04-14-2022 11:23-0400 Heart rate 80 /min Miguelina Clemente MD Work Phone: [facility] 04-14-2022 11:23-0400 SaO2% (BldA) [Mass fraction] 97 % Miguelina Clemente MD Work Phone: [facility] Encounters Encounter Date Encounter Type Care Provider Facility Start: 11-02-2023 End: 11-03-2023 ambulatory MIGUELINA CLEMENTE Facility:[facility] Start: 10-15-2023 End: 10-15-2023 ambulatory MIGUELINA CLEMENTE Facility:[facility] Start: 10-07-2023 Refill Miguelina buchanan MD Work Phone: [facility] [place] Procedures Date Procedure Procedure Detail Performing Clinician Start: 08-21-2023 INFLUENZA VACCINE, A GE 6 MO - 64 YR, QUADRIVALENT (AFLURIA, FLULAVAL, FLUZONE) Fadi Martinez MD Work Phone: Start: 07-26-2023 HEARING TEST/AUDIOGRAM Cristina FINE Work Phone: Start: 07-08-2023 Hepatobil syst imag inc gb w/pharma intervenj Miguelina Clemente MD Work Phone: Start: 04-01-2023 Us abdominal real ti me w/image limited Miguelina Clemente MD Work Phone: Start: 03-08-2023 Radex ribs uni w/pos teroant ch minimum 3 views Miguelina Clemente MD Work Phone: Start: 01-15-2023 Radiologic exam ches t 2 views Miguelina Clemente MD Work Phone: Start: 11-24-2022 Injection 1 tendon sheath/ligament aponeurosis Erwin Meyers MD Work Phone: Start: 10-08-2022 Us retroperitoneal r eal time w/image complete Miguelina Clemente MD Work Phone: Start: 10-05-2022 Urnls dip stick/tabl et rgnt auto w/o microscopy Sangita Maddox PALouisC Work Phone: Start: 08-08-2022 INFLUENZA VACCINE QUADRIVALENT 6 MO - 64 YRS IM Ameya Us DO Work Phone: Start: 07-16-2022 PFIZER-BIONTECH COVI D-19 BIVALENT BOOSTER VACCINE, AGE 12+ YR Miguelina Clemente MD Work Phone: Plan of Treatment Date Care Activity Detail Author Start: 04-26-2026 DIABETES SCREEN DIABETES SCREEN [facility] Start: 04-26-2026 Diabetes Screening Diabetes Screenin g [facility] Start: 01-08-2026 DIABETES SCREEN DIABETES SCREEN [facility] Start: 09-11-2025 DIABETES SCREEN DIABETES SCREEN [facility] Start: 06-01-2025 DIABETES SCREEN DIABETES SCREEN [facility] Start: 05-21-2025 DIABETES SCREEN DIABETES SCREEN [facility] Start: 04-12-2024 Hepatitis B surface antibody level LDL CHOLESTEROL [facility] Start: 03-19-2024 DIABETES SCREEN DIABETES SCREEN [facility] Start: 09-30-2023 End: 12-30-2023 Basic metabolic 2000 panel - Serum or Plasma BASIC METABOLIC PNL Lab Routine Chronic diastolic (congestive) heart failure (HCC) Expected: 09/30/2023, Expires: 12/30/2023 [facility] Work Phone: Immunizations Immunization Date Immunization Notes Care Provider Estevan bonilla 08-21-2023 influenza, injectabl e, quadrivalent, contains preservative Immunization [facility] Work Phone: [facility] 08-08-2022 influenza, injectabl e, quadrivalent, contains preservative Immunization Fam Work Phone: [facility] 08-08-2022 influenza virus vaccine, unspecified formulation Miguelina Salay MD Work Phone: [facility] 07-16-2022 COVID-19 booster vaccine, age 12+ yr, bivalent (WikiWand-MoodMe) Miguelina Clemente MD Work Phone: [facility] 09-24-2021 zoster vaccine recombinant Kelsi Wabbaseka OT/L Work Phone: [facility] Work Phone: 08-19-2021 influenza, injectabl e, quadrivalent, contains preservative Kelsi Wabbaseka OT/L Work Phone: [facility] 06-25-2021 zoster vaccine recombinant Kelsi Wabbaseka OT/L Work Phone: [facility] 12-05-2020 COVID-19 vaccine, fu ll dose (MODERNA) Kelsi Wabbaseka OT/L Work Phone: [facility] Work Phone: 11-07-2020 COVID-19 vaccine, fu ll dose (MODERNA) Kelsi Wabbaseka OT/L Work Phone: [facility] Work Phone: 08-15-2020 influenza, injectabl e, quadrivalent, contains preservative Kelsi Wabbaseka OT/L Work Phone: [facility] 09-01-2019 influenza, injectabl e, quadrivalent, contains preservative Kelsi Wabbaseka OT/L Work Phone: [facility] 08-12-2018 influenza, injectabl e, quadrivalent, contains preservative Kelsi Wabbaseka OT/L Work Phone: [facility] Work Phone: 07-30-2017 influenza, injectabl e, quadrivalent, contains preservative Kelsi Wabbaseka OT/L Work Phone: [facility] 07-18-2017 influenza, high dose seasonal, preservative-free Kelsi Wabbaseka OT/L Work Phone: [facility] Work Phone: 07-18-2017 influenza, seasonal, injectable, preservative free Kelsi Wabbaseka OT/L Work Phone: [facility] 08-21-2016 influenza, injectabl e, quadrivalent, contains preservative Kelsi Wabbaseka OT/L Work Phone: [facility] 08-12-2015 influenza, high dose seasonal, preservative-free Kelsi Wabbaseka OT/L Work Phone: [facility] 11-22-2014 pneumococcal conjuga te vaccine, 13 valent Kelsi Wabbaseka OT/L Work Phone: [facility] 11-22-2014 pneumococcal polysaccharide vaccine, 23 valent Kelsi Wabbaseka OT/L Work Phone: [facility] Work Phone: 08-16-2014 influenza, seasonal, injectable Kelsi Wabbaseka OT/L Work Phone: [facility] Work Phone: 07-29-2013 influenza virus vaccine, unspecified formulation Kelsi Wabbaseka OT/L Work Phone: [facility] 08-15-2012 influenza virus vaccine, unspecified formulation Kelsi Wabbaseka OT/L Work Phone: [facility] 08-15-2012 tetanus toxoid, redu emma diphtheria toxoid, and acellular pertussis vaccine, adsorbed Kelsi Wabbaseka OT/L Work Phone: [facility] 05-31-2012 pneumococcal conjuga te vaccine, 13 valent Kelsi Wabbaseka OT/L Work Phone: [facility] Work Phone: 08-29-2011 influenza virus vaccine, unspecified formulation Kelsi Wabbaseka OT/L Work Phone: [facility] 08-15-2010 influenza virus vaccine, unspecified formulation Kelsi Wabbaseka OT/L Work Phone: [facility] Work Phone: 08-01-2009 influenza virus vaccine, unspecified formulation Kelsi Wabbaseka OT/L Work Phone: [facility] Work Phone: 10-18-2008 zoster vaccine, live Kelsi Wabbaseka OT/L Work Phone: [facility] Work Phone: 08-24-2008 influenza virus vaccine, unspecified formulation Kelsi Wabbaseka OT/L Work Phone: [facility] Work Phone: 07-20-2008 influenza virus vaccine, unspecified formulation Kelsi Wabbaseka OT/L Work Phone: [facility] 08-26-2007 influenza virus vaccine, unspecified formulation Kelsi Wabbaseka OT/L Work Phone: [facility] 08-13-2006 influenza virus vaccine, unspecified formulation Kelsi Wabbaseka OT/L Work Phone: [facility] 09-04-2005 influenza virus vaccine, unspecified formulation Kelsi Wabbaseka OT/L Work Phone: [facility] Work Phone: 10-18-2004 tetanus and diphther ia toxoids, adsorbed, preservative free, for adult use (2 Lf of tetanus toxoid and 2 Lf of diphtheria toxoid) Kelsi Wabbaseka OT/L Work Phone: [facility] 10-18-2003 pneumococcal polysaccharide vaccine, 23 valent Kelsi Wabbaseka OT/L Work Phone: [facility] 10-18-1994 hepatitis A vaccine, unspecified formulation Kelsi Wabbaseka OT/L Work Phone: [facility] 10-18-1994 hepatitis B vaccine, adult dosage Kelsi Wabbaseka OT/L Work Phone: [facility] Payers Date Payer Category Payer Medicare MEDICARE MEDICAR E A AND B [id number] 2020-Present [phone] [place] [address] Medicare [id number] 2020 Medicare MEDICARE MEDICAR E A AND B [id number] 2020-Present [phone] [place] [address] Medicare [id number] 2020 Medicare [id number] 2020 Unknown PHYSICIANS [employer] SUPPLEMENT [id number] 2020-Present [phone] [address] [place] [address] Indemnity [id number] 2020 Unknown PHYSICIANS [employer] SUPPLEMENT [id number] 2020-Present [phone] [address] [place] [address] Indemnity [id number] 2020 Unknown [id number] Unknown [id number] Social History Date Type Detail Facility Start: 01-20-2012 End: 10-05-2022 Tobacco smoking status [facility] Ex-smoker [facility] Work Phone: End: 01-19-1967 History of tobacco use Current smoker [facility] End: 01-19-1967 History of tobacco use Cigarette Smoker [facility] Start: 12-29-2021 End: 08-06-2023 Alcohol intake Current drinker of alcohol (finding) [facility] Start: 07-05-2020 History SDOH Alcohol Binge 1 [facility] Start: 09-19-2020 History SDOH Financial 5 [facility] Start: 1935 Sex Assigned At Not on file C [facility] Start: 12-19-2021 End: 09-11-2022 Exposure to SARS-CoV-2 (event) Not sure [facility] Work Phone: Start: 05-08-2022 End: 05-18-2022 Exposure to SARS-CoV-2 (event) Unable to assess [facility] Start: 01-20-2012 End: 02-18-2023 Cigarettes smoked current (pack per day) - Reported 1 [facility] Start: 01-20-2012 End: 10-05-2022 Tobacco use and exposure Smokeless tobacco non-user [facility] Start: 03-08-2023 History SDOH Physica l Activity DPW 3 [facility] Start: 03-08-2023 History SDOH Physica l Activity MPS 6 [facility] Start: 03-08-2023 History SDOH Stress 2 [facility] Start: 02-18-2023 End: 03-08-2023 Social connection and isolation panel [facility] In a typical week, h ow many times do you talk on the telephone with family, friends, or neighbors? Patient refused [facility] Are you now , , , , never or living with a partner? Refused [facility] Do you feel stress - tense, restless, nervous, or anxious, or unable to sleep at night because your mind is troubled all the time - these days [OSQ] Only a little [facility] (I/We) worried wheth er (my/our) food would run out before (I/we) got money to buy more. DK or Refused [facility] Start: 03-06-2022 Gender identity Identifies as female gender (finding) [facility] How often do you hav e 6 or more drinks on 1 occasion? Never [facility] Clinical Notes 12-22-2019 to 10-15-2023 Telephone Encounter - Mary Houser - 10/07/2023 8:49 AM ESTPatient William Ku MD - 09/30/2023 11:15 AM EST Note Date & Type Note Facility 10-15-2023 Note HNO ID: [id number] Author: Miranda Levy RN Service: Nursing Author Type: Registered Nurse Type: Progress Notes Filed: 10/15/2023 12:10 PM Note Text: Radiology Service Progress Note DATE OF SERVICE: October 15, 2023 TIME: 12:02 PM PATIENT WEIGHT: 135 LBS PATIENT IDENTITY VERIFICATION COMPLETED USING TWO (2) STANDARD IDENTIFIERS: Name and Date of confirmed by patient verbally. FALL SCREENING: Has the patient had 2 falls in the last year or 1 fall with injury or currently using an Ambulatory Assistive Device (Walker, Cane, Wheelchair, Crutches, etc.)? No PATIENT GENDER DATA: Female. status: : No status: NO. ALLERGIES: Reviewed and unchanged CONTRAST ALLERGY: No EXAM: MRI - CONTRAST TYPE: GROUP II IV SITE: Ambulatory: A peripheral IV was started in the Left forearm with a Angio cath: 22 gauge. IV SITE APPEARANCE: Clean,Dry and Intact SIGNATURE: Miranda Levy RN PATIENT NAME: Zenaida Evans DATE: October 15, 2023 TIME: 12:02 PM [facility] 10-15-2023 Note HNO ID: [id number] Author: Levi Gonzalez RT(R) Service: Radiology Author Type: Catering Sales Manager Type: Progress Notes Filed: 10/15/2023 1:11 PM Note Text: Radiology Service Progress Note PATIENT NAME: Zenaida Evans DATE OF SERVICE: October 15, 2023 TIME: 1:11 PM PATIENT IDENTITY VERIFICATION COMPLETED USING TWO (2) IDENTIFIERS: Name and Date of confirmed by patient verbally and Name and Date of confirmed by identification band. FALL SCREENING: Has the patient had 2 falls in the last year or 1 fall with injury or currently using an Ambulatory Assistive Device (Walker, Cane, Wheelchair, Crutches, etc.)? No PATIENT GENDER DATA: Female. status: : No status: NO. PATIENT RELEVANT IMPLANT DATA REVIEWED: Yes RADIOLOGY DEPARTMENT: MR; Exam(s) Completed: Body: Pancreas/Biliary PERIPHERAL IV DATA: Site assessment: Clean,Dry and Intact, Site disposition Discontinued SIGNED BY: RT Kleber(R) October 15, 2023 1:11 PM [facility] 10-07-2023 Miscellaneous Notes Patient stated she requested in Mychart days ago but it did not go through. Please refill as soon as possible. TY Patient has been identified by name and date of : Yes Requested Prescriptions Pending Prescriptions Disp Refills cloNIDine TTS (CATAPRES-TTS) 0.1 mg/24 hr 12 Patch 3 Sig: Apply 1 Patch as directed one time a week. labetalol (TRANDATE) 200 mg tablet 180 tablet 3 Sig: Take 1 tablet by mouth two times a day. RX INSTRUCTIONS: Patient aware RX will be sent to [facility] pharmacy. No need to notify patient. Mary Houser documented in this encounter [facility] 09-30-2023 Note HNO ID: [id number] Author: William Bautista MD Service: ? Author Type: Physician Type: Progress Notes Filed: 09/30/2023 12:28 PM Note Text: [facility] SECTION OF HEART FAILURE and CARDIAC TRANSPLANT MEDICINE OUTPATIENT VISIT DATE September 30, 2023 OUTPATIENT VISIT TYPE Established Patient PRIMARY CARE PHYSICIAN: Miguelina Clemente [address] [place] [address] CHIEF COMPLAINT: Feeling well NURSING INTAKE (Patient?s concerns and/or recent hospitalizations/ER visits): HF Nursing Assessment: Interim Hospitalizations and/or ER visits:no Chest Pain: no Skipping or irregular heartbeats: yes Shortness of breath at rest: no Shortness of breath with activity: yes Cough: some Waking up in the middle of the night gasping for air: no Lightheadedness or dizziness: sometimes Feeling like you are going to pass out: no Actually passing out: no Poor energy level: fair Unintentional weight gain: no Unintentional weight loss: no Swelling in your legs,feet, abdomen: legs Filling up quickly when you eat: sometimes HISTORY OF PRESENT ILLNESS: 88 yo male with pmh of hypertension, CKD stage 3b, hypothyroidism, and HFpEF who presents for further evaluation of her HFpEF. She was diagnosed with HFpEF in 04/2020 when she presented to her senior programmer with peripheral edema requiring furosemide. Her ntprobnp had increased to 400 to > 1000. She did not understand the diagnosis at that time but after doing research, she set up an appointment with Dr. Alfred for further evaluation. Her probnp continued to be elevated despite the addition of diuretic. They discussed potential use of SGLT2i but wanted to discuss with her physicians first. Over the past 2-3 years, she has noticed increased dyspnea on exertion when going up inclines and stairs. She is able to go up a flight of stairs but then must catch her breath. She must stop half way up a hill due to shortness of breath. She has had labile hypertension since her 50's. She has had side effects to traditional BP medications and is now on a combination of labetalol and clonidine patch. She was trialed on ARB but there was a significant decrease in her eGFR. Renal duplex did not show any hemodynamic significant stenosis in either of the renal arteries. She currently reports better BP control at home with average SBP in 120-130's and DBP in the 70-80 range. However, her blood poressures are typically significantly elevated during her clinic visits. Since her last visit, She continues to remain stable. She walks on the treadmill at 3mph and resistant training. She does have dyspnea up 1 flight of stairs. Denies any edema, orthopnea or PND. PAST MEDICAL HISTORY Diagnosis Date Breast cancer (HCC) 09/[address] Wood right ER positive s/p surgery/radiation and AI Collagenous colitis 07/30/2017 On biopsy 2012. Diarrhea hx of colitis Diffuse cystic mastopathy Dyspareunia Essential hypertension H/O complete eye exam 03/13/2011 no retinopathy detected -both eyes - [facility] [place] - return in 1 year - Dr. Ruby hair thinning sees Dr Choudhary Hormone replacement therapy (HRT) 1974-present stopped by 09/2011 hx of low vitamin D treated 08/2007 20.4 recheck only 23 9/08 improved to 54 PMH - PAST MEDICAL HISTORY OF cardiac arrhythmia- resolved with change in medication Stage 3 chronic kidney disease (HCC) 11/22/2019 Symptomatic states associated with artificial menopause 1974 THBSO for fibroids age 40 Vaginal atrophy 08/2015 offered vag DHEA Vaginismus for PT PAST SURGICAL HISTORY Procedure Laterality Date APPENDECTOMY BREAST BIOPSY CORE 04/16/2009 right breast stereo core biopsy BX BREAST NEEDLE CORE W/O IMAGING GUIDANCE SPX 04/02/2008 right breast stereo core biopsy BX/EXC LYMPH NODE OPEN DEEP AXILLARY NODE 10/30/2011 Right NL PM/SLNs CATARACT EXTRACTION HX Bilateral 09/04, 12/06 COLONOSCOPY FLX DX W/COLLJ SPEC WHEN PFRMD 09/08/2013 Colonoscopy MASTECTOMY, PARTIAL Right 10/30/2011 Right NL PM/SLNs PAST SURGICAL HISTORY OF bilat vein stripping PAST SURGICAL HISTORY OF Left 1990 left breast Atypical hyperplasia PAST SURGICAL HISTORY OF excision skin cancer S FINGER JOINT IMPLANT [id number] Left 11/2020 Candace Marmolejo left thumb joint replacement TOTAL ABDOMINAL HYSTERECT W/WO RMVL TUBE OVARY early 1969' Hysterectomy, CAROL, due to fibroids. SOCIAL HISTORY Social History Tobacco Use Smoking status: Former Packs/day: 1.00 Years: 12.00 Additional pack years: 0.00 Total pack years: 12.00 Types: Cigarettes Quit date: 01/19/1967 Years since quittin.7 Smokeless tobacco: Never Vaping Use Vaping Use: Never used Substance Use Topics Alcohol use: Yes Alcohol/week: 5.0 - 7.0 standard drinks of alcohol Types: 5 - 7 Glasses of Wine (5oz) per week Drug use: No (more content not included)... [facility] 09-30-2023 Instructions William Bautista MD - 09/30/2023 12:17 PM EST Thank you for visiting the [facility] at the [facility]. Here are your instructions. 1. Will start Farxiga after the New Year. 2. Labs 1 week after starting. 3. Return in 6 months. Please message me with any issues on Farxiga. Please call with questions or concerns. Office: [phone] William Bautista MD documented in this encounter [facility] 09-30-2023 History of Presen t illness Narrative Heart [facility] SECTION OF HEART FAILURE and CARDIAC TRANSPLANT MEDICINE OUTPATIENT VISIT DATE September 30, 2023 OUTPATIENT VISIT TYPE Established Patient PRIMARY CARE PHYSICIAN: Miguelina Clemente [address] [place] [id number] CHIEF COMPLAINT: Feeling well NURSING INTAKE (Patient s concerns and/or recent hospitalizations/ER visits): HF Nursing Assessment: Interim Hospitalizations and/or ER visits:no Chest Pain: no Skipping or irregular heartbeats: yes Shortness of breath at rest: no Shortness of breath with activity: yes Cough: some Waking up in the middle of the night gasping for air: no Lightheadedness or dizziness: sometimes Feeling like you are going to pass out: no Actually passing out: no Poor energy level: fair Unintentional weight gain: no Unintentional weight loss: no Swelling in your legs,feet, abdomen: legs Filling up quickly when you eat: sometimes HISTORY OF PRESENT ILLNESS: 88 yo male with pmh of hypertension, CKD stage 3b, hypothyroidism, and HFpEF who presents for further evaluation of her HFpEF. She was diagnosed with HFpEF in 04/2020 when she presented to her senior programmer with peripheral edema requiring furosemide. Her ntprobnp had increased to 400 to > 1000. She did not understand the diagnosis at that time but after doing research, she set up an appointment with Dr. Alfred for further evaluation. Her probnp continued to be elevated despite the addition of diuretic. They discussed potential use of SGLT2i but wanted to discuss with her physicians first. Over the past 2-3 years, she has noticed increased dyspnea on exertion when going up inclines and stairs. She is able to go up a flight of stairs but then must catch her breath. She must stop half way up a hill due to shortness of breath. She has had labile hypertension since her 50's. She has had side effects to traditional BP medications and is now on a combination of labetalol and clonidine patch. She was trialed on ARB but there was a significant decrease in her eGFR. Renal duplex did not show any hemodynamic significant stenosis in either of the renal arteries. She currently reports better BP control at home with average SBP in 120-130's and DBP in the 70-80 range. However, her blood poressures are typically significantly elevated during her clinic visits. Since her last visit, She continues to remain stable. She walks on the treadmill at 3mph and resistant training. She does have dyspnea up 1 flight of stairs. Denies any edema, orthopnea or PND. PAST MEDICAL HISTORY Diagnosis Date Breast cancer (HCC) 09/[address] Nina moraes ER positive s/p surgery/radiation and AI Collagenous colitis 07/30/2017 On biopsy 2012. Diarrhea hx of colitis Diffuse cystic mastopathy Dyspareunia Essential hypertension H/O complete eye exam 03/13/2011 no retinopathy detected -both eyes - [facility] - return in 1 year - Dr. Ruby hair thinning sees Dr Choudhary Hormone replacement therapy (HRT) 1974-present stopped by 09/2011 hx of low vitamin D treated 08/2007 20.4 recheck only 23 06/25 improved to 54 PMH - PAST MEDICAL HISTORY OF cardiac arrhythmia- resolved with change in medication Stage 3 chronic kidney disease (HCC) 11/22/2019 Symptomatic states associated with artificial menopause 1974 THBSO for fibroids age 40 Vaginal atrophy 08/2015 offered vag DHEA Vaginismus for PT PAST SURGICAL HISTORY Procedure Laterality Date APPENDECTOMY BREAST BIOPSY CORE 04/16/2009 right breast stereo core biopsy BX BREAST NEEDLE CORE W/O IMAGING GUIDANCE SPX 04/02/2008 right breast stereo core biopsy BX/EXC LYMPH NODE OPEN DEEP AXILLARY NODE 10/30/2011 Right NL PM/SLNs CATARACT EXTRACTION HX Bilateral 09/04, 12/06 COLONOSCOPY FLX DX W/COLLJ SPEC WHEN PFRMD 09/08/2013 Colonoscopy MASTECTOMY, PARTIAL Right 10/30/2011 Right NL PM/SLNs PAST SURGICAL HISTORY OF bilat vein stripping PAST SURGICAL HISTORY OF Left 1990 left breast Atypical hyperplasia PAST SURGICAL HISTORY OF excision skin cancer S FINGER JOINT IMPLANT [id number] Left 11/2020 Candace Marmolejo left thumb joint replacement TOTAL ABDOMINAL HYSTERECT W/WO RMVL TUBE OVARY early Hysterectomy, CAROL, due to fibroids. SOCIAL HISTORY Social History Tobacco Use Smoking status: Former Packs/day: 1.00 Years: 12.00 Additional pack years: 0.00 Total pack years: 12.00 Types: Cigarettes Quit date: 01/19/1967 Years since quittin.7 Smokeless tobacco: Never Vaping Use Vaping Use: Never used Substance Use Topics Alcohol use: Yes Alcohol/week: 5.0 - 7.0 standard drinks of alcohol Types: 5 - 7 Glasses of Wine (5oz) per week Drug use: No FAMILY HISTORY Problem Relation Age of Onset Alzheimer's Disease Mother hypertension/stroke d89 Hypertension Mother Stroke Mother Heart Father heart failure, d 72 other (emphseyma) Sister d 59 other (healthy) Daughter other (healthy) Daughter other (healthy) Son Breast Cancer Maternal Aunt ALLERGIES: ALLERGIES Allergen Reactions Scopolamine Mental Status Change Hallucinations Amlodipine Other: See Comments Significant swelling even on 2.5 mg per day. Hctz [Thiazides] Contraindication-Medical Surgical Hyponatremia at 12.5 mg. Hydralazine Intolerance nausea Iron GI Upset CAN TAKE SLO-IRON Jardiance [Empaglif* Diarrhea Lipitor [Atorvastat* Myalgia Losartan Other: See Comments BRIGHT with elevated potassium and creatinine. Spironolactone Intolerance Blood pressure went up Talwin [Pentazocine* Mental Status Change HALLUCINATIONS Verapamil Hcl GI Upset constipation CURRENT MEDICATIONS: minoxidil (LONITEN) 2.5 mg tablet^1 TABLET DAILY^Disp: 90 tablet^Rfl: 3 levothyroxine (SYNTHROID) 88 mcg tablet^Take 1 tablet by mouth once daily.^Disp: 90 tablet^Rfl: 1 furosemide (LASIX) 20 mg tablet^Take 1 tablet by mouth every Wednesday,Wednesday,Wednesday (0600).^Disp: 36 tablet^Rfl: 3 cloNIDine TTS (CATAPRES-TTS) 0.1 mg/24 hr^Apply 1 Patch as directed one time a week.^Disp: 12 Patch^Rfl: 3 labetalol (TRANDATE) 200 mg tablet^Take 1 tablet by mouth twice daily.^Disp: 180 tablet^Rfl: 3 indapamide (LOZOL) 1.25 mg tablet^Take 1 tablet by mouth once daily.^Disp: 90 tablet^Rfl: 3 Ferrous Sulfate (SLOW FE) 142 mg (45 mg iron) TbER^Take 1 tablet by mouth two times a week.^Disp: ^Rfl: MULTIVITAMIN ORAL^Take 1 tablet by mouth once daily.^Disp: ^Rfl: Melatonin 5 mg cap^Take 1 capsule by mouth at bedtime as needed.^Disp: ^Rfl: Cholecalciferol, Vitamin D3, 50 mcg (2,000 unit) cap^Take 1 capsule by mouth once daily.^Disp: ^Rfl: biotin 5 mg tab^Take 5 mg by mouth once daily.^Disp: ^Rfl: ketoconazole (NIZORAL) 2 % shampoo^Use to wash face and scalp two times a week. Lather and leave in for 3-5 minutes before rinsing.^Disp: 240 mL^Rfl: 11 REVIEW OF SYSTEMS: CONSTITUTION: Negative for: Weight loss or gain, Fever. Chills, Night sweats HEENT: Negative for: Hearing loss, Nosebleeds, Mouth sores, Trouble swallowing, Dry mouth RESPIRATORY: Negative for: Cough, Difficulty breathing GASTROINTESTINAL: Negative for: Melena, Diarrhea, Nausea, Abdominal distension, Early satiety MUSCULOSKELETAL: Negative for: Arthralgias, Myalgias NEUROLOGICAL: Negative for: Headaches, Dizziness SKIN: Negative for: Rash EYES: Negative for: Vision disturbance CARDIOVASCULAR: Negative for: Chest pain, Leg swelling, Arrhythmia, Presyncope GENITOURINARY: Negative for: Difficulty urinatiing PATIENT ENTERED DATA: KCCQ-12 Scores 03/31/2023 Physical Limitation Score 83.33 (Class II Heart Failure ) Symptom Frequency Score 81.25 (Class II Heart Failure ) Quality of Life Score 75 (Class II Heart Failure ) Social Limitation Score 83.33 (Class II Heart Failure) Overall Summary Score 80.73 (Class II Heart Failure ) PHQ-9 07/10/2020 07/10/2020 03/31/2023 Score 7 7 7 PROMIS Global Health - (T-Scores - the mean of general population = 50. Five points is a clinically meaningful difference.) 07/10/2020 07/10/2020 03/08/2023 Physical T-Score 42.3 42.3 42.3 Mental T-Score 38.8 38.8 43.5 PHYSICAL EXAMINATION: BP 155/63 (BP Site: Left Arm, BP Position: Sitting, BP Cuff Size: Regular Adult) Pulse 70 Resp 15 Ht 167.6 cm (5' 6 ) Wt 59.9 kg (132 lb) SpO2 95% BMI 21.31 kg/m General: Well appearing, in no acute distress. Skin: No clubbing, no cyanosis. Eyes: Extra ocular movements intact Oropharynx: Teeth in good repair. Neck: No jugular venous distention, no carotid bruits, carotids have a normal upstroke, no palpable thyromegaly. Lungs: Clear to auscultation bilaterally, no wheezing or rhonchi. Heart: Regular rhythm, PMI not displaced, S1, S2 normal, no S3, no S4, no heaves, no rub and no murmur. Abdomen: Soft, nontender, bowel sounds normal, no palpable organomegaly, no bruits. Extremities: No peripheral edema . Grade 2/4 distal pulses bilaterally. Neuro: Oriented to person, place and time, alert, cooperative, gait coordinated. CARDIOVASCULAR MEDICINE TESTING: I have personally reviewed the Laboratory Testing. Last ECHO Result Conclusion ECHO Collected: 04/02/2023 10:32 AM (Final result) Impression: CONCLUSIONS: - Exam indication: Routine surveillance (>1yr) of Heart Failure with no change in clinical status - The left ventricle is normal in size. Left ventricular systolic function is normal. EF = 62 5% (2D biplane) - The right ventricle is normal in size. Right ventricular systolic function is normal. - No significant valvular abnormalities. - Exam was compared with the prior echocardiographic exam performed on 11/23/2019. No significant change. * * * Final * * * Latest Reference Range & Units 04/26/23 12:51 07/06/23 14:34 09/28/23 16:37 Sodium 136 - 144 mmol/L 140 Potassium 3.7 - 5.1 mmol/L 4.8 Chloride 97 - 105 mmol/L 104 CO2 22 - 30 mmol/L 25 BUN 7 - 21 mg/dL 37 (H) Creatinine 0.58 - 0.96 mg/dL 1.47 (H) Glucose 74 - 99 mg/dL 90 Calcium 8.5 - 10.2 mg/dL 10.0 Anion Gap 9 - 18 mmol/L 11 eGFR >=60 mL/min/1.73m 35 (L) TSH 0.270 - 4.200 mIU/L 2.040 WBC 3.70 - 11.00 k/uL 4.38 4.44 RBC 3.90 - 5.20 m/uL 3.50 (L) 3.33 (L) Hemoglobin 11.5 - 15.5 g/dL 11.1 (L) 10.6 (L) Hematocrit 36.0 - 46.0 % 34.0 (L) 32.4 (L) Platelet Count 150 - 400 k/uL 179 196 MCV 80.0 - 100.0 fL 97.1 97.3 MCH 26.0 - 34.0 pg 31.7 31.8 MCHC 30.5 - 36.0 g/dL 32.6 32.7 MPV 9.0 - 12.7 fL 9.5 9.9 RDW-CV 11.5 - 15.0 % 13.0 12.9 DTYPE Auto Auto Neut% % 49.1 43.9 Abs Neut (ANC) 1.45 - 7.50 k/uL 2.15 1.95 Lymph% % 38.1 42.1 Abs Lymph 1.00 - 4.00 k/uL 1.67 1.87 [place]% % 10.5 11.3 Abs [place] <0.87 k/uL 0.46 0.50 Eosin% % 1.6 1.8 Abs Eosin <0.46 k/uL 0.07 0.08 Baso% % 0.5 0.7 Abs Baso <0.11 k/uL <0.03 0.03 Immature Gran % % 0.2 0.2 IMMATURE GRANS (ABS) <0.10 k/uL <0.03 <0.03 NRBC /100 WBC 0.0 0.0 Absolute nRBC <0.01 k/uL <0.01 <0.01 (H): Data is abnormally high (L): Data is abnormally low IMPRESSION: NYHA Functional Class: II Stage: C heart failure 88 yo male with pmh of hypertension, CKD stage 3b, hypothyroidism, and HFpEF who presents for further evaluation of her HFpEF. 1. HFpEF (chronic diastolic heart failure) - LVEF 60%, normal wall thickness, normal LA size (27 ml/m2) 2. Hypertension - poorly controlled 3. Hypothyroidism 4. CKD stage 3b (cr 1.36 with eGFR of 36) 5. Palpitations. Ms. Evans presents for evaluation of her HFpEF. She has been symptomatic from HFpEF and has a persistently elevated NTprobnp. Her ECG does not significant LVH or low voltage and her echocardiogram from 2019 does not show any overt cardiac remodeling. She has NYHA class IIIa symptoms when dealing with inclines. She has tried empagliflozin but had diarrhea. Will trial on dapagliflozin and reassess her symptoms after 1 month. Recommendations: 1. Start dapagliflozin 10mg daily. 2. Labs after 1 week. 3. Return in 6 months. I personally interviewed, confirmed and edited the above information as obtained by others I personally spent 30 minutes in total time involved in the management and care of this patient. We discussed natural history of disease, current treatment options, and future potential treatment options. We discussed diet, exercise, other non-medical management as above. William Bautista MD [facility] Section Of Heart Failure and Cardiac Transplant Medicine Heart and Vascular [place] [facility] Desk [id number] [place] [address] documented in this encounter [facility] documented in this encounter [facility]12-05-2023 Miscellaneous Notes* Telephone Encounter - Chidi Keller RN - 09/21/2023 8:30 AM EST Routing to the provider for review. [facility]23 NoteHNO ID: [id number] Author: Liam Elliott PT Service: ? Author Type: Physical Therapist Type: Progress Notes Filed: 09/16/2023 11:10 AM Note Text: Episode Visit Count: 3 Therapist That Will Accept/Oversee The Plan Of Care: Liam Elliott PT. Start of Care Date: 08/30/23 Onset Date: ((Longstanding; Since her 20's per patient)) Plan of Care Certification Date: 08/30/23 Next Certification Due Date: 10/04/23 Patient Identified by Name and Date of : Yes REHABILITATION AND SPORTS THERAPY PHYSICAL THERAPY TREATMENT NOTE ASSESSMENT: Zenaida Evans tolerated the session with expected muscle soreness. She demonstrated difficulty with manual flexibility of the R Hip Flexor due to pain. The patient will continue to benefit from ongoing skilled physical therapy to progress toward set goals. PLAN FOR NEXT VISIT: Neutral Spine Strengthening Progressions, scapular strength and T/S Mobility. Possibly trial Retro walking for posture. SUBJECTIVE: Pt. has been in pain since 09/14/23; reports at [facility] she did her normal routine and the HEP given to her and thinks it was too much. Pain: Pain Pain Level: 3 Pain Location: Low Back/Lumbar Spine - Right Description: Dull, Aching Post Treatment Pain Post Treatment Pain Level: 4 Post Treatment Pain Location: Low Back/Lumbar Spine - Right OBJECTIVE MEASURES WITH LEVEL OF FUNCTION: Tenderness at R PSIS/Belt line. TREATMENT: Therapeutic Exercise: 1: Supine TA Bracinx10, 5 hold. 2: Bridges: 2x12. 3: B Clamshells: 2x10. 4: *Reviewed and discussed HEP; patient to discontinue supine glute stretch to opp shoulder, will add Keesha stretch. Skilled Intervention: Patient was educated in proper exercise technique and purpose for exercises. Skilled judgment was used in selection of appropriate interventions. Correct performance of therapeutic exercises was facilitated with verbal, visual, and tactile cuing. Patient education as noted. Manual Therapy: 1: B HS AND L Hip Flexor Flexibility: Push to tolerance. 2: L Hip IR/ER Passive Mobility Skilled Intervention: Manual skills to improve joint mobility, ROM, and decrease pain. Utilized anatomy knowledge of the therapist, and assessment of patient's response to intervention. Billing Therapeutic Exercise Treatment Minutes: 25 Manual TherapyTreatment Minutes: 10 Skilled Treatment Time Minutes (timed and untimed codes): 35 Total Session Time (minutes): 35 Session Start Time : 1031 Session Stop Time : 1106 Liam Elliott [facility]11-24-2023 NoteHNO ID: [id number] Author: Liam Elliott PT Service: ? Author Type: Physical Therapist Type: Progress Notes Filed: 09/10/2023 1:37 PM Note Text: Episode Visit Count: 2 Therapist That Will Accept/Oversee The Plan Of Care: Liam Elliott PT. Start of Care Date: 08/30/23 Onset Date: ((Longstanding; Since her 20's per patient)) Plan of Care Certification Date: 08/30/23 Next Certification Due Date: 10/04/23 Patient Identified by Name and Date of : Yes REHABILITATION AND SPORTS THERAPY PHYSICAL THERAPY TREATMENT NOTE ASSESSMENT: Zenaida Evans tolerated the session with expected muscle soreness and no issues. She demonstrated difficulty with progressions to TA Bracing due to poor form and activation. The patient will continue to benefit from ongoing skilled physical therapy to progress toward set goals. PLAN FOR NEXT VISIT: L Hip Mobility, Thoracic Mobility, Glute and Neutral Spine Strengthening. Retro walking for posture. SUBJECTIVE: Patient reports no pain today, and she is feeling good. HEP is going good and she enjoys completing. Pain: Pain Pain Level: 0 Post Treatment Pain Post Treatment Pain Level: No Change OBJECTIVE MEASURES WITH LEVEL OF FUNCTION: Limited thoracic extension mobility TREATMENT: Therapeutic Exercise: 1: Supine LTR: 1x15 ea. 2: Supine BKFO: 1x15 ea. 3: Supine TA Bracinx10, 5 hold. (*Difficulty progressing to marches due to decreased form/control.) 4: Hooklying Supine Pulldowns,GTB: 2x10. 5: *Pallof Press: 1x15 ea, GTB. 6: *Open the book: 1x15 ea. 7: *Thoracic Extension: 2x10 ea. Skilled Intervention: Patient was educated in proper exercise technique and purpose for exercises. Reviewed and educated patient on additions/changes for home exercise program as above (*). Skilled judgment was used in selection of appropriate interventions. Provided written instruction for home exercise program to facilitate proper performance and compliance. Correct performance of therapeutic exercises was facilitated with verbal, visual, and tactile cuing. Billing Therapeutic Exercise Treatment Minutes: 40 Skilled Treatment Time Minutes (timed and untimed codes): 40 Total Session Time (minutes): 40 Session Start Time : 1250 Session Stop Time : 1330 Liam Elliott [facility]11-24-2023 History of Present illness Narrative* Liam Elliott, PT - 09/10/2023 1:28 PM EST Program_ID:[id number] Access Code: [email or web address] URL: [email or web address] Date: 09-10-2023 Prepared By: Liam Elliott Program Notes Exercises - Supine Lower Trunk Rotation - 1-2 x daily - 7 x weekly - 2-3 - 10 - Supine Transversus Abdominis Bracing - Hands on Stomach - 2 x daily - 7 x weekly - 2-3 - 10 - Seated Hamstring Stretch - 1-2 x daily - 7 x weekly - 2 - - Bent Knee Fallouts - 1-2 x daily - 7 x weekly - 2 - 10 - Supine Single Knee to Chest Stretch - 1-2 x daily - 7 x weekly - 2 - - Supine Piriformis Stretch with Leg Straight - 1-2 x daily - 7 x weekly - 2 - - Standing Anti-Rotation Press with Anchored Resistance - 1-2 x daily - 7 x weekly - 2 - 10 - Seated Thoracic Lumbar Extension - 1-2 x daily - 7 x weekly - 2 - 10-15 - Standing Thoracic Open Book at Wall - 1-2 x daily - 4-5 x weekly - 2 - 10-15 * Liam Elliott, PT - 09/10/2023 12:45 PM EST Episode Visit Count: 2 Therapist That Will Accept/Oversee The Plan Of Care: Liam Elliott PT. Start of Care Date: 08/30/23 Onset Date: ((Longstanding; Since her 20's per patient)) Plan of Care Certification Date: 08/30/23 Next Certification Due Date: 10/04/23 Patient Identified by Name and Date of : Yes REHABILITATION AND SPORTS THERAPY PHYSICAL THERAPY TREATMENT NOTE ASSESSMENT: Zenaida Evans tolerated the session with expected muscle soreness and no issues. She demonstrated difficulty with progressions to TA Bracing due to poor form and activation. The patientwill continue to benefit from ongoing skilled physical therapy to progress toward set goals. PLAN FOR NEXT VISIT: L Hip Mobility, Thoracic Mobility, Glute and Neutral Spine Strengthening. Retro walking for posture. SUBJECTIVE: Patient reports no pain today, and she is feeling good. HEP is going good and she enjoys completing. Pain: Pain Pain Level: 0 Post Treatment Pain Post Treatment Pain Level: No Change OBJECTIVE MEASURES WITH LEVEL OF FUNCTION: Limited thoracic extension mobility TREATMENT: Therapeutic Exercise: 1: Supine LTR: 1x15 ea. 2: Supine BKFO: 1x15 ea. 3: Supine TA Bracinx10, 5 hold. (*Difficulty progressing to marches due to decreased form/control.) 4: Hooklying Supine Pulldowns,GTB: 2x10. 5: *Pallof Press: 1x15 ea, GTB. 6: *Open the book: 1x15 ea. 7: *Thoracic Extension: 2x10 ea. Skilled Intervention: Patient was educated in proper exercise technique and purpose for exercises. Reviewed and educated patient on additions/changes for home exercise program as above (*). Skilled judgment was used in selection of appropriate interventions. Provided written instruction for home exercise program to facilitate proper performance and compliance. Correct performance of therapeutic exercises was facilitated with verbal, visual, and tactile cuing. Billing Therapeutic Exercise Treatment Minutes: 40 Skilled Treatment Time Minutes (timed and untimed codes): 40 Total Session Time (minutes): 40 Session Start Time : 1250 Session Stop Time : 1330 Liam Elliott PT [facility]23 NoteHNO ID: [id number] Author: Shalini Lopez [facility] Service: ? Author Type: Pharmacist Type: Progress Notes Filed: 09/08/2023 12:08 PM Note Text: Heart Failure Medication Optimization: Pharmacist Visit CC (Reason for Consult): (I50.32) Chronic diastolic (congestive) heart failure (HCC) (primary encounter diagnosis) Last Collaborating Cardiology Provider Visit: 04/02/23 Zenaida Evans is a 88 year old female presenting for initial visit: This initial consult was conducted telephone call with the patient where the consult agreement was explained. The patient may decline or cancel the agreement at any time. After consideration, the patient consented to the pharmacy consult agreement and agreed to allow medications be collaboratively managed by a pharmacist. Patient was previously diagnosed with HFpEF: EF 60% (November 2019). Interval Events: 0 ED visits or hospitalizations since last seen Last cardiology visit was March 2023, no med changes HPI: Patient stated that the patient had been on Jardiance in the past. She didn't tolerate it so was started on indapamide. States she was on Jardiance >1 year ago, felt unwell and had other sx but doesn't recall what exactly happened. Does feel out of breath with elevation. Feels SOB when walks uphill or walking upstairs. Sometimes will need to stop and take a breath. Doesn't get SOB if walking flat even for long periods of time. Past medical history reviewed. ROS: denies shortness of breath at rest REPORTS SOB on exertion (walking uphill or up stairs, anything required elevation) denies (orthopnea, PND, bendopnea, wheezing/coughing). Reports symptoms of edema (ankle swelling is chronic, no change from normal). Denies sx of abdominal swelling or early satiety. Denies CP, SALTER, blurred vision. Occasionally will feel a palpitation when in lying bed, will go away if changing position. Happens maybe a couple of times per year, can't recall last time it happened. denies dizziness, lightheadedness, syncope. DIET: Sodium restriction: Yes (uses reduced salt products, doesn't cook with salt) Fluid restriction: No ALLERGIES Allergen Reactions Scopolamine Mental Status Change Hallucinations Amlodipine Other: See Comments Significant swelling even on 2.5 mg per day. Hctz [Thiazides] Contraindication-Medical Surgical Hyponatremia at 12.5 mg. Hydralazine Intolerance nausea Iron GI Upset CAN TAKE SLO-IRON Jardiance [Empaglif* Diarrhea Lipitor [Atorvastat* Myalgia Losartan Other: See Comments BRIGHT with elevated potassium and creatinine. Spironolactone Intolerance Blood pressure went up Talwin [Pentazocine* Mental Status Change HALLUCINATIONS Verapamil Hcl GI Upset constipation Current Outpatient Medications Medication Sig minoxidil (LONITEN) 2.5 mg tablet 1 TABLET DAILY cyclobenzaprine (FLEXERIL) 5 mg tablet Take 1 tablet by mouth at bedtime as needed for muscle spasm. (Patient not taking: Reported on 08/04/2023) levothyroxine (SYNTHROID) 88 mcg tablet Take 1 tablet by mouth once daily. predniSONE (DELTASONE) 10 mg tablet Take 4 tabs daily x 3 days, then 3 tabs x 3 days, 2 tabs x 3 days, then 1 tab x3 days with food. (Patient not taking: Reported on 08/06/2023) ketoconazole (NIZORAL) 2 % shampoo Use to wash face and scalp two times a week. Lather and leave in for 3-5 minutes before rinsing. furosemide (LASIX) 20 mg tablet Take 1 tablet by mouth every Wednesday,Wednesday,Wednesday (0600). cloNIDine TTS (CATAPRES-TTS) 0.1 mg/24 hr Apply 1 Patch as directed one time a week. labetalol (TRANDATE) 200 mg tablet Take 1 tablet by mouth twice daily. indapamide (LOZOL) 1.25 mg tablet Take 1 tablet by mouth once daily. Ferrous Sulfate (SLOW FE) 142 mg (45 mg iron) TbER Take 1 tablet by mouth two times a week. MULTIVITAMIN ORAL Take 1 tablet by mouth once daily. Melatonin 5 mg cap Take 1 capsule by mouth at bedtime as needed. Cholecalciferol, Vitamin D3, 50 mcg (2,000 unit) cap Take 1 capsule by mouth once daily. biotin 5 mg tab Take 5 mg by mouth once daily. Current Facility-Administered Medications Medication Dose Route Frequency perflutren lipid microspheres 1.3 mL in NaCl (PF) 0.9% 10 mL injection (DEFINITY) INTRAVENOUS DIRECTED PRN sodium chloride 0.9 % (flush) 10 mL (BD POSIFLUSH) 10 mL INTRAVENOUS DIRECTED PRN VITALS: Last 3 Encounter BP Readings: Date: BP: 08/06/2023 125/67 08/04/2023 189/83 07/05/2023 138/60 Last 3 Encounter Wt Readings: Date: Wt: 08/06/2023 60.8 kg (134 lb 1.6 oz) 08/04/2023 61.1 kg (134 lb 9.6 oz) 07/05/2023 60.4 kg (133 lb 4 oz) HOME BLOOD PRESSURE AND PULSE READINGS: Recalled recent readings: SBP usually around 130, DBP usually around 80; HR usually 75-80 bpm LABS: reviewed CMP: Glucose 90 04/26/2023 BUN 37 04/26/2023 Creatinine, Whole Blood (iSTAT) 1.47 04/26/2023 Sodium 140 04/26/2023 Potassium, POC 4.8 04/26/2023 Chloride 104 04/26/2023 CO2 25 04/17 (more content not included)...[facility]11-22-2023 History of Present illness Narrative* Shalini Lopez, [facility] - 09/08/2023 11:00 AM EST Heart Failure Medication Optimization: Pharmacist Visit CC (Reason for Consult): (I50.32) Chronic diastolic (congestive) heart failure (HCC) (primary encounter diagnosis) Last Collaborating Cardiology Provider Visit: 04/02/23 Zenaida Evans is a 88 year old female presenting for initial visit: This initial consult was conducted telephone call with the patient where the consult agreement was explained. The patient may decline or cancel the agreement at any time. After consideration, the patient consented to the pharmacyconsult agreement and agreed to allow medications be collaboratively managed by a pharmacist. Patient was previously diagnosed with HFpEF: EF 60% (November 2019). Interval Events: 0 ED visits or hospitalizations since last seen Last cardiology visit was March 2023, no med changes HPI: Patient stated that the patient had been on Jardiance in the past. She didn't tolerate it so was started on indapamide. States she was on Jardiance >1 year ago, felt unwell and had other sx but doesn't recall what exactly happened. Does feel out of breath with elevation. Feels SOB when walks uphill or walking upstairs. Sometimes will need to stop and take a breath. Doesn't get SOB if walking flat even for long periods of time. Past medical history reviewed. ROS: denies shortness of breath at rest REPORTS SOB on exertion (walking uphill or up stairs, anything required elevation) denies (orthopnea, PND, bendopnea, wheezing/coughing). Reports symptoms of edema (ankle swelling is chronic, no change from normal). Denies sx of abdominal swelling or early satiety. Denies CP, SALTER, blurred vision. Occasionally will feel a palpitation when in lying bed, will go awayif changing position. Happens maybe a couple of times per year, can't recall last time it happened. denies dizziness, lightheadedness, syncope. DIET: Sodium restriction: Yes (uses reduced salt products, doesn't cook with salt) Fluid restriction: No ALLERGIES Allergen Reactions Scopolamine Mental Status Change Hallucinations Amlodipine Other: See Comments Significant swelling even on 2.5 mg per day. Hctz [Thiazides] Contraindication-Medical Surgical Hyponatremia at 12.5 mg. Hydralazine Intolerance nausea Iron GI Upset CAN TAKE SLO-IRON Jardiance [Empaglif* Diarrhea Lipitor [Atorvastat* Myalgia Losartan Other: See Comments BRIGHT with elevated potassium and creatinine. Spironolactone Intolerance Blood pressure went up Talwin [Pentazocine* Mental Status Change HALLUCINATIONS Verapamil Hcl GI Upset constipation Current Outpatient Medications Medication Sig minoxidil (LONITEN) 2.5 mg tablet 1 TABLET DAILY cyclobenzaprine (FLEXERIL) 5 mg tablet Take 1 tablet by mouth at bedtime as needed for muscle spasm. (Patient not taking: Reported on 08/04/2023) levothyroxine (SYNTHROID) 88 mcg tablet Take 1 tablet by mouth once daily. predniSONE (DELTASONE) 10 mg tablet Take 4 tabs daily x 3 days, then 3 tabs x 3 days, 2 tabs x 3 days, then 1 tab x3 days with food. (Patient not taking: Reported on 08/06/2023) ketoconazole (NIZORAL) 2 % shampoo Use to wash face and scalp two times a week. Lather and leave infor 3-5 minutes before rinsing. furosemide (LASIX) 20 mg tablet Take 1 tablet by mouth every Wednesday,Wednesday,Wednesday (0600). cloNIDine TTS (CATAPRES-TTS) 0.1 mg/24 hr Apply 1 Patch as directed one time a week. labetalol (TRANDATE) 200 mg tablet Take 1 tablet by mouth twice daily. indapamide (LOZOL) 1.25 mg tablet Take 1 tablet by mouth once daily. Ferrous Sulfate (SLOW FE) 142 mg (45 mg iron) TbER Take 1 tablet by mouth two times a week. MULTIVITAMIN ORAL Take 1 tablet by mouth once daily. Melatonin 5 mg cap Take 1 capsule by mouth at bedtime as needed. Cholecalciferol, Vitamin D3, 50 mcg (2,000 unit) cap Take 1 capsule by mouth once daily. biotin 5 mg tab Take 5 mg by mouth once daily. Current Facility-Administered Medications Medication Dose Route Frequency perflutren lipid microspheres 1.3 mL in NaCl (PF) 0.9% 10 mL injection (DEFINITY) INTRAVENOUS DIRECTED PRN sodium chloride 0.9 % (flush) 10 mL (BD POSIFLUSH) 10 mL INTRAVENOUS DIRECTED PRN VITALS: Last 3 Encounter BP Readings: Date: BP: 08/06/2023 125/67 08/04/2023 189/83 07/05/2023 138/60 Last 3 Encounter Wt Readings: Date: Wt: 08/06/2023 60.8 kg (134 lb 1.6 oz) 08/04/2023 61.1 kg (134 lb 9.6 oz) 07/05/2023 60.4 kg (133 lb 4 oz) HOME BLOOD PRESSURE AND PULSE READINGS: Recalled recent readings: SBP usually around 130, DBP usually around 80; HR usually 75-80 bpm LABS: reviewed CMP: Glucose 90 04/26/2023 BUN 37 04/26/2023 Creatinine, Whole Blood (iSTAT) 1.47 04/26/2023 Sodium 140 04/26/2023 Potassium, POC 4.8 04/26/2023 Chloride 104 04/26/2023 CO2 25 04/26/2023 Protein, Total 6.0 04/12/2023 Albumin 4.0 04/12/2023 Calcium 10.0 04/26/2023 Alkaline Phosphatase 53 04/12/2023 Bilirubin, Total 0.4 04/12/2023 AST 18 04/12/2023 ALT 13 04/12/2023 * I have personally reviewed all lab testing. eGFR 35 Guideline Directed Medical Therapy Current GDMT score: 1 NYHA class 2. Slight limitation of physical activity. Ordinary physical activity results in fatigue, palpitations, dyspnea or angina pectoris (mid CHF). SAGE/ARB/ARNI NO Not taking due to side effect Beta [place] YES - labetalol Target dose suboptimal - limited by intolerance Aldosterone antagonist NO Not taking due to side effect SGLT2i 2 NO Not taking due to side effect Hydralazine/Isosorbide Dinitrate NO Not indicated Ivabradine NO Not indicated ASSESSMENT/PLAN: 1. Chronic diastolic (congestive) heart failure (HCC) - ICD9: 428.32, 428.0, ICD10: I50.32 - HFpEF 50+ - GDMT score below goal - HFpEF - Didn't tolerate spironolactone, hydralazine, or valsartan in the past. Didn't tolerate Jardiance well (diarrhea) but open to retrying med - Only symptomatic when walking uphill or upstairs (elevation) - some mild lower extremity edema, no change from normal - Continue current medications --> PharmD will reach out to senior programmer to discuss retrial of SGLT2i (pt has f/up visit next month); will also discuss if it would be worth transitioning patient from labetalol to carvedilol given the extra morbidity/mortality data The patient verbalized understanding of the instructions. Patient taking SGLT2-I at conclusion of visit: No The patient is not taking SGLT2-I due to other tried Jardiance in past, open to discussing with senior programmer at upcoming appt . Follow up: See patient instructions The majority of the pharmacy visit (> 50%) was spent counseling and/or coordinating care for thepatient. Time was 35 minutes. [facility] NotePatient Outreach (NETNAV) ZENAIDA EVANS ([id number]) 1935 F Date Time Provider Department 09/02/23 NADJA WYLIEV During your visit today, we recorded the following information about you: Nadja Wylie 09/02/2023 10:52 AM Signed POPULATION HEALTH NAVIGATION OUTREACH Action/FYI Spoke to patient regarding unread My Chart message about SGLT2/Heart Failure and phone call visit scheduled with pharmacist. Patient Identified by Name and : YES, via phone Outreach Outcome/Action Spoke to patient / parent / legal guardian: Patient scheduled Did you use a PCP flex slot to schedule this appointment? N/A Reason for Outreach Medical Neighborhood SGLT2 Payer: Payor: MEDICARE / Plan: MEDICARE A AND B / Product Type: Medicare / Reminder: Reminder note to check Health Maintenance for items below Health Maintenance items due: RSV Vaccine(1 - 1-dose 60+ series) Never done DTaP,Tdap,Td Vaccine(2 - Td or Tdap) due on 08/15/2022 Covid-19 Vaccine(2022- season) due on 06/18/2023 Navigation Signature: Nadja Wylie September 02, 2023 10:51 AM Allergies As of Date: 09/02/2023 Noted Allergy Reaction SCOPOLAMINE 10/30/2011 1 - Mental Status Change Comments: Hallucinations AMLODIPINE 03/01/2020 14 - Other: See Comments Comments: Significant swelling even on 2.5 mg per day. HCTZ (THIAZIDES) 12/15/2019 15 - Contraindication-Medical [place]* Comments: Hyponatremia at 12.5 mg. HYDRALAZINE 08/12/2020 5 - Intolerance Comments: nausea IRON 09/03/2005 8 - GI Upset Comments: CAN TAKE SLO-IRON JARDIANCE (EMPAGLIFLOZIN) 11/20/2022 6 - Diarrhea LIPITOR (ATORVASTATIN) 11/09/2019 17 - Myalgia LOSARTAN 11/28/2019 14 - Other: See Comments Comments: BRIGHT with elevated potassium and creatinine. SPIRONOLACTONE 07/10/2020 5 - Intolerance Comments: Blood pressure went up TALWIN (PENTAZOCINE LACTATE) 09/30/2009 1 - Mental Status Change Comments: HALLUCINATIONS VERAPAMIL HCL 05/06/2016 8 - GI Upset Comments: constipation Date Reviewed: 08/06/2023 Reviewed by: Corrina Dye MA - Fully Assessed Reason for Visit: Population Health Navigation Outreach [3910] Cmt: SGLT2 Prescriptions as of 09/02/2023 - minoxidil (LONITEN) 2.5 mg tablet 1 TABLET DAILY - cyclobenzaprine (FLEXERIL) 5 mg tablet Take 1 tablet by mouth at bedtime as needed for muscle spasm. - levothyroxine (SYNTHROID) 88 mcg tablet Take 1 tablet by mouth once daily. - predniSONE (DELTASONE) 10 mg tablet Take 4 tabs daily x 3 days, then 3 tabs x 3 days, 2 tabs x 3 days, then 1 tab x3 days with food. - ketoconazole (NIZORAL) 2 % shampoo Use to wash face and scalp two times a week. Lather and leave in for 3-5 minutes before rinsing. - furosemide (LASIX) 20 mg tablet Take 1 tablet by mouth every Wednesday,Wednesday,Wednesday (0600). - cloNIDine TTS (CATAPRES-TTS) 0.1 mg/24 hr Apply 1 Patch as directed one time a week. - labetalol (TRANDATE) 200 mg tablet Take 1 tablet by mouth twice daily. - indapamide (LOZOL) 1.25 mg tablet Take 1 tablet by mouth once daily. - Ferrous Sulfate (SLOW FE) 142 mg (45 mg iron) TbER Take 1 tablet by mouth two times a week. - MULTIVITAMIN ORAL Take 1 tablet by mouth once daily. - Melatonin 5 mg cap Take 1 capsule by mouth at bedtime as needed. - Cholecalciferol, Vitamin D3, 50 mcg (2,000 unit) cap Take 1 capsule by mouth once daily. - biotin 5 mg tab Take 5 mg by mouth once daily. Facility-Administered Medications as of 09/02/2023 - perflutren lipid microspheres 1.3 mL in NaCl (PF) 0.9% 10 mL injection (DEFINITY) - sodium chloride 0.9 % (flush) 10 mL (BD POSIFLUSH) Meds Comments as of 10/05/2022: Problem List As Of Date 09/02/2023 Noted Resolved Hypertensive heart and chronic kidney disease w*07/06/2003 PALPITATIONS [R00.2] 07/06/2003 08/31/2008 Coronary atherosclerosis [I25.10] 07/06/2003 ALOPECIA NOS [L65.9] 07/06/2003 08/31/2008 ANEMIA NOS [D64.9] 06/09/2005 08/31/2008 hx of telogen effluvium [L65.0] 06/09/2005 DIARRHEA NOS [R19.7] 08/31/2008 RETINAL VASCULAR CHANGES [H35.019] 08/26/2007 GOITER NOS [E04.9] 08/26/2007 01/09/2016 OSTEOARTHRITIS [M19.90] 08/26/2007 01/09/2016 VISUAL REFRACTION ERROR [H52.6] 08/26/2007 01/09/2016 VARICOSE VEINS [I83.90] 08/26/2007 CERVICAL OSTEOARTHRITIS [M47.812] 08/26/2007 Sleep disturbance, unspecified [G47.9] 08/26/2007 01/09/2016 URINARY CALCULUS NOS [N20.9] 08/26/2007 PERS HX OF IRRADIATION-face and neck [Z92.3] 08/26/2007 Unspecified hearing loss [H91.90] 08/26/2007 01/09/2016 Irritable bowel syndrome [K58.9] 08/26/2007 09/19/2020 UNSP ABNORMAL MAMMOGRAM [R92.8] 03/19/2008 04/10/2008 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 Author Type: ? Type: Progress Notes Filed: 09/02/2023 10:52 AM Note Text: POPULATION HEALTH NAVIGATION OUTREACH Action/FYI Spoke to patient regarding unread My Chart message about SGLT2/Heart Failure and phone call visit scheduled with pharmacist. Patient Identified by Name and : YES, via phone Outreach Outcome/Action Spoke to patient / parent / legal guardian: Patient scheduled Did you use a PCP flex slot to schedule this appointment? N/A Reason for Outreach Medical Neighborhood SGLT2 Payer: Payor: MEDICARE / Plan: MEDICARE A AND B / Product Type: Medicare / Reminder: Reminder note to check Health Maintenance for items below Health Maintenance items due: RSV Vaccine(1 - 1-dose 60+ series) Never done DTaP,Tdap,Td Vaccine(2 - Td or Tdap) due on 08/15/2022 Covid-19 Vaccine( season) due on 06/18/2023 Navigation Signature: Nadja Wylie September 02, 2023 10:51 [facility]11-16-[facility]23 History of Present illness Narrative* Nadja Wylie - 09/02/2023 10:51 AM EST POPULATION HEALTH NAVIGATION OUTREACH Action/FYI Spoke to patient regarding unread My Chart message about SGLT2/Heart Failure and phone call visit scheduled with pharmacist. Patient Identified by Name and : YES, via phone Outreach Outcome/Action Spoke to patient / parent / legal guardian: Patient scheduled Did you use a PCP flex slot to schedule this appointment? N/A Reason for Outreach Medical Neighborhood SGLT2 Payer: Payor: MEDICARE / Plan: MEDICARE A AND B / Product Type: Medicare / Reminder: Reminder note to check Health Maintenance for items below Health Maintenance items due: RSV Vaccine(1 - 1-dose 60+ series) Never done DTaP,Tdap,Td Vaccine(2 - Td or Tdap) due on 08/15/2022 Covid-19 Vaccine( season) due on 06/18/2023 Navigation Signature: Nadja Wylie September 02, 2023 10:51 AM [facility] NoteHNO ID: [id number] Author: Liam Elliott, PT Service: ? Author Type: Physical Therapist Type: Progress Notes Filed: 08/31/2023 12:39 PM Note Text: Episode Visit Count: 1 Therapist That Will Accept/Oversee The Plan Of Care: Liam Elliott PT. Start of Care Date: 08/30/23 Onset Date: ((Longstanding; Since her 20's per patient)) Plan of Care Certification Date: 08/30/23 Next Certification Due Date: 10/04/23 Patient Identified by Name and Date of : Yes REHABILITATION AND SPORTS THERAPY PHYSICAL THERAPY EVALUATION PLAN OF CARE: Assessment: Zenaida Evans presents with chief complaint of chronic Lumbar AND Thoracic pain that interferes with sleeping Exercising. Patient's concordant pain not able to be reproduced today. She reports symptoms and pain are sporadic and inconsistent, not often caused by the same activities and varies day to day. She presents with impairments in ADL's, flexibility, independence in exercise, joint mobility, overall function, posture, range of motion, and symptom management. Patient did not complete the PROMIS? (Patient Reported Outcome Measures Information System). Prognosis for therapy is Fair due to: clinical presentation, chronic nature of impairments, Prognosis may be improved by (Unable to reproduce patients concordant sxs.) good overall health status, good support system/ coping skills.She will benefit from skilled therapy services to meet the goals established for this plan of care as noted below. Goals for Episode of Care: created on 08/30/23 through 10/12/23 [place] in home exercise program. Patient will decrease pain rating by 2 points to meet minimal clinical important difference for numeric pain rating scale. Perform ADLs/IADLs with decreased report of symptoms/pain in 4-6 weeks. Perform sitting at the computer/writing/typing without pain. Restore pain-free lumbar ROM for improvement in fuctional activity without limitation. Improve L Hip mobility. Improve B lower extremity flexibility. Improve postural awareness. Patient Goals: Reduce chronic sharp, intermittent pain. Planned Interventions, Frequency, and Duration: Current Frequency: 1x/week Duration: 4 weeks Total Number of Visits Planned: 4 Planned Treatment Interventions: Therapeutic exercise (03240), Neuromuscular re-education (47265), Manual therapy (88670), Therapeutic activities (45958), Self-long-term management (16695), Gait Training (87183), Patient/Family/Caregiver Education PLAN FOR NEXT VISIT: Assess how HEP went; continue to ask about what brings about concordant pain or worsens it; neutral spine strengthening, scapular strengthening, retro walking for posutre. Patient demonstrates good understanding of plan of care and treatment. The above goals and plan of care were discussed and agreed upon by patient/family. SUBJECTIVE: Patient reports longstanding back pain; has been manageable for th elast 10 years with a combo of massage, exercise and chiropractic; pain has been worsening for the last year; patient reports L AND R low back pain (L is worse); reports pain is sharp; all activity makes it worse per patient, depends what she is doing, however exercising lately has caused her pain for days following. Patient reports hard to know what exactly causes it, she cannot attribute any specific activity that makes it worse . Reports right now she is in 0/10 pain. Denies B LE involvement. Patient Goals: Reduce chronic sharp, intermittent pain. Functional Limitations: sleeping Functional Limitation Comments: Exercising. Prior Level of Function: Independent without limitations Relevant History Past Relevant Medical Conditions: Hypertension Employment: Retired Recreation / Current Exercise: 3x/per week at [employer]; light machines Intake Information: Prescription present Previous Treatment: Chiropractor , Massage Falls Interview: No positive findings with falls interview Red Flags Vertebral Fracture Red Flags: Age >70, Female Vertebral Fracture Clinical Reasoning: Proceed with caution due to the above (1-2) risk factors Abdominal Aortic Aneurysm Red Flags: Age >60 Abdominal Aortic Aneurysm Clinical Reasoning: Proceed with caution Cancer Red Flags: History of Cancer, Age >50 or <20 Cancer Clinical Reasoning: Proceed with caution Infection Clinical Reasoning: No identified risk factors. Cauda Equina Syndrome Clinical Reasoning: No identified risk factors. Red Flags - Cervical Cancer Red Flags: History of Cancer, Age >50 or <20 Cancer Clinical Reasoning: Proceed with caution Infection Clinical Reasoning: No identified risk factors. Spine History Symptoms Location at Onset: Back Symptoms Since Onset: Worsening Pain is Worse Always: No position Pain is Better Always: No position Sleeping Position: Supine Sleep Affected by Pain: Pain keeps from falling asleep, Pain awakens Pain: Pain Pain Level: (more content not included)...[facility]11-13-2023 History of Present illness Narrative* Liam Elliott, PT - 08/30/2023 4:26 PM EST Program_ID:[id number] Access Code: [email or web address] URL: [email or web address] Date: 08-30-2023 Prepared By: Liam Elliott Program Notes Exercises - Supine Lower Trunk Rotation - 1-2 x daily - 7 x weekly - 2-3 - 10 - Supine Transversus Abdominis Bracing - Hands on Stomach - 2 x daily - 7 x weekly - 2-3 - 10 - Seated Hamstring Stretch - 1-2 x daily - 7 x weekly - 2 - - Bent Knee Fallouts - 1-2 x daily - 7 x weekly - 2 - 10 - Supine Single Knee to Chest Stretch - 1-2 x daily - 7 x weekly - 2 - - Supine Piriformis Stretch with Leg Straight - 1-2 x daily - 7 x weekly - 2 - * Liam Elliott, PT - 08/30/2023 3:43 PM EST Episode Visit Count: 1 Therapist That Will Accept/Oversee The Plan Of Care: Liam Elliott PT. Start of Care Date: 08/30/23 Onset Date: ((Longstanding; Since her 20's per patient)) Plan of Care Certification Date: 08/30/23 Next Certification Due Date: 10/04/23 Patient Identified by Name and Date of : Yes REHABILITATION AND SPORTS THERAPY PHYSICAL THERAPY EVALUATION PLAN OF CARE: Assessment: Zenaida Evans presents with chief complaint of chronic Lumbar & Thoracic pain that interferes with sleeping Exercising. Patient's concordant pain not able to be reproduced today. She reports symptoms and pain are sporadic and inconsistent, not often caused by the same activities and varies day to day. She presents with impairments in ADL's, flexibility, independence in exercise,joint mobility, overall function, posture, range of motion, and symptom management. Patient did notcomplete the PROMIS (Patient Reported Outcome Measures Information System). Prognosis for therapy is Fair due to: clinical presentation, chronic nature of impairments, Prognosis may be improved by (Un able to reproduce patients concordant sxs.) good overall health status, good support system/ [place].She will benefit from skilled therapy services to meet the goals established for this plan of care as noted below. Goals for Episode of Care: created on 08/30/23 through 10/12/23 [place] in home exercise program. Patient will decrease pain rating by 2 points to meet minimal clinical important difference for numeric pain rating scale. Perform ADLs/IADLs with decreased report of symptoms/pain in 4-6 weeks. Perform sitting at the computer/writing/typing without pain. Restore pain-free lumbar ROM for improvement in fuctional activity without limitation. Improve L Hip mobility. Improve B lower extremity flexibility. Improve postural awareness. Patient Goals: Reduce chronic sharp, intermittent pain. Planned Interventions, Frequency, and Duration: Current Frequency: 1x/week Duration: 4 weeks Total Number of Visits Planned: 4 Planned Treatment Interventions: Therapeutic exercise (25830), Neuromuscular re- education (83585), Manual therapy (44548), Therapeutic activities (84709), Self- long-term management (52520), Gait Training (51535), Patient/Family/Caregiver Education PLAN FOR NEXT VISIT: Assess how HEP went; continue to ask about what brings about concordant pain or worsens it; neutral spine strengthening, scapular strengthening, retro walking for posutre. Patient demonstrates good understanding of plan of care and treatment. The above goals and plan of care were discussed and agreed upon by patient/family. SUBJECTIVE: Patient reports longstanding back pain; has been manageable for th elast 10 years with a combo of massage, exercise and chiropractic; pain has been worsening for the last year; patient reports L & R low back pain (L is worse); reports pain is sharp; all activity makes it worse per patient, depends what she is doing, however exercising lately has caused her pain for days following. Patient reports hard to know what exactly causes it, she cannot attribute any specific activity that makes it worse . Reports right now she is in 0/10 pain. Denies B LE involvement. Patient Goals: Reduce chronic sharp, intermittent pain. Functional Limitations: sleeping Functional Limitation Comments: Exercising. Prior Level of Function: Independent without limitations Relevant History Past Relevant Medical Conditions: Hypertension Employment: Retired Recreation / Current Exercise: 3x/per week at [employer]; light machines Intake Information: Prescription present Previous Treatment: Chiropractor , Massage Falls Interview: No positive findings with falls interview Red Flags Vertebral Fracture Red Flags: Age >70, Female Vertebral Fracture Clinical Reasoning: Proceed with caution due to the above (1- 2) risk factors Abdominal Aortic Aneurysm Red Flags: Age >60 Abdominal Aortic Aneurysm Clinical Reasoning: Proceed with caution Cancer Red Flags: History of Cancer, Age >50 or <20 Cancer Clinical Reasoning: Proceed with caution Infection Clinical Reasoning: No identified risk factors. Cauda Equina Syndrome Clinical Reasoning: No identified risk factors. Red Flags - Cervical Cancer Red Flags: History of Cancer, Age >50 or <20 Cancer Clinical Reasoning: Proceed with caution Infection Clinical Reasoning: No identified risk factors. Spine History Symptoms Location at Onset: Back Symptoms Since Onset: Worsening Pain is Worse Always: No position Pain is Better Always: No position Sleeping Position: Supine Sleep Affected by Pain: Pain keeps from falling asleep, Pain awakens Pain: Pain Pain Level: 0 Post Treatment Pain Post Treatment Pain Level: No Change PROMIS Scales T-scores: mean of general population = 50. 5 points is clinically meaningfully difference Percentiles provide an indication of how the patient's score ranks in relation to the general population. Higher percentile rankings indicate better function/quality of life. 50th percentile is the average of the general population and indicates half of respondents had a worse score. OBJECTIVE MEASURES WITH LEVEL OF FUNCTION: Spine Observations Spine Observations: Structural scoliosis R Rib Hump R Lumbar Spine Palpation Tenderness: Paraspinals, PSIS (posterior superior iliac spine) L Lumbar Spine Palpation Tenderness: Paraspinals, PSIS (posterior superior iliac spine) R Thoracic Spine Palpation Tenderness: Paraspinals L Thoracic Spine Palpation Tenderness: Paraspinals Lumbar Spine AROM Lumbar Flexion: Normal Lumbar Extension: Minimal limitation Lumbar R Side-Bend: Minimal limitation Lumbar L Side-Bend: Minimal limitation Lumbar R Rotation: Normal Lumbar L Rotation: Normal Lumbar Spine AROM Comments: no concordant symptoms grossly Thoracic Spine AROM Thoracic Flexion: Normal Thoracic Extension: Moderate limitation Thoracic Sidebend Right: Normal Thoracic Sidebend Left: Normal Thoracic Rotation Right: Normal Thoracic Rotation Left: Normal LE Flexibility Flexibility: Hamstring Flexibility, Quadriceps Flexibility R Hamstring Flexibility: Limited L Hamstring Flexibility: Limited R Quadriceps Flexibility: Poor L Quadriceps Flexibility: Poor Spine Joint Mobility Joint Mobility Comment: Poor L Hip IR Mobility when compared to the R. LE Strength R LE Strength: Grossly 5/5 L LE Strength: Grossly 5/5 Special Tests - Hip and Spine Hip and Spine Special Tests: SLR Test SLR Test: Right Negative, Left Negative Education: Education Learning/educational needs: Plan of Care, Posture, Body Mechanics, Changes in Plan of Care, Home exercise program TREATMENT: PT Treatment Interventions: Therapeutic Exercise, Self-Chcf Management Evaluation Therapeutic Exercise: 1: *Supine LTR: 1x10 ea. 2: *Supine TA Bracinx10, 5 hold. 3: *Seated HS Stretch:2x30 4: *Supine BKFO: 1x10 ea. 5: *R SKC: 1x30 6: *Supine Glute Stretch to [place] Shoulder: 1x30 ea. Skilled Intervention: Patient was educated in proper exercise technique and purpose for exercises. Reviewed and educated patient on additions/changes for home exercise program as above (*). Skilled judgment was used in selection of appropriate interventions. Provided written instruction for home exercise program to facilitate proper performance and compliance. Correct performance of therapeutic exercises was facilitated with verbal, visual, and tactile cuing. Self-Chcf Management: 1: *Postural education. 2: *Discussed therapy goals, examination findings and importance of trial of HEP for improvement incurrent function. Edcuated patient on although we were unable to reproduce her concordant pain today, she still has several limitations that are appropriate for PT to address and may be underlying factors in her concordant pain. Patient was informed of plan and ther-ex and manual interventions to help address deficits. Advised patient that therapy will be unable to alter structural deformity of chronic nature. Edcuated on role of PT and patient agreed to POC. 3: *Advised patient to continue active lifestyle and exercise routine as long as no reporduction ofconcordant pain or increase severity of symptoms occurs. Skilled Intervention: Skilled judgment in the selection of proper modification for activity of daily living/home management based on clinical presentation, deficits, and needs. Reviewed patient specific diagnosis in relation to activities of daily living/home management. Activity progression based on professional judgement. Billing * Evaluation Low Complexity: 1 Unit Therapeutic Exercise Treatment Minutes: 10 Self-Care/Home Management Treatment Minutes: 15 Skilled Treatment Time Minutes (timed and untimed codes): 45 Total Session Time (minutes): 45 Session Start Time : 1543 Session Stop Time : 1628 Liam Elliott PT [facility] Miscellaneous Notes* Telephone Encounter - Katey Melo - 08/16/2023 9:38 AM EDT Patient last seen 02/2023 RX Minoxidil Please approve prescription and any additional refills and e-script to designated pharmacy. Thank you, Katey Melo documented in [facility]-2023 NoteHNO ID: [id number] Author: Bertha Yanez PA-C Service: ? Author Type: Physician Flight Surgeon Type: Progress Notes Filed: 08/06/2023 12:02 PM Note Text: [facility]ane[facility] [address] [address] 08/06/2023 ASSESSMENT AND PLAN: Assessment : Encounter Diagnosis ICD-10-CM 1. 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 M41.20 2. Degenerative scoliosis in adult patient M41.50 3. Chronic thoracic back pain, unspecified back pain laterality M54.6 G89.29 Discussion: Ms. Evans is a very pleasant 88-year-old female in remarkable overall health. She is here for evaluation of longstanding thoracolumbar scoliosis that was discovered when she was in her 20s. She feels that symptoms have gradually gotten worse over the past couple of years and she notices some pain in the middle of her back area in the thoracic and upper lumbar region as well as some pain at the lower lumbar junction with the pelvis and sacrum. She has tried field care coordinator, massage therapy every 2 weeks, acupuncture, TENS unit in the chiropractic office, and physical therapy a number of years ago. All of these things have given her moderate relief without long-lasting relief. She uses occasional Aleve for her symptoms and finds that walking on a treadmill seems to help a little bit too. She participates in daily exercising at the [facility] fitness center in [facility]. EXAM Highlights: She mobilizes somewhat slowly from sitting standing posture but is able to achieve an erect stance. Gait is essentially normal without obvious favoring but she is somewhat slow in her pace. Balance is diminished as expected for her age Lumbar motion does not reproduce any severe pain but she does have generalized pain at PSIS bilaterally and lumbosacral junction. There is additional POP over thoracic paraspinal musculature in the whole mid and lower region of the thorax There is normal strength, sensation, reflexes in lower extremities IMAGING: We reviewed her recent thoracic x-rays which show the dextroscoliosis in the thoracic region and the beginnings of levoscoliosis in the lumbar region. Degenerative findings appear to be appropriate for her age without fracture SUMMARY/PLAN: She will continue conservative management and perhaps try supervised PT again at the [facility] specialty building. She will return here if symptoms appreciably change or worsen. At this point, I do not see any neurologic deficits or concerns amounting to yellow or red flags regarding her spine pain and findings on imaging or exam. 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 She will be getting up and moving around frequently throughout her day and adjusting her workstation to allow for proper posture. Plan : REFERAL FOR SERVICES: -Physical therapy will be instituted. ACTIVITY RECOMMENDATIONS: -The patient is encouraged to avoid bed rest and maintain normal activity. -The patient is encouraged to exercise regularly as tolerated. -The patient advised to avoid prolonged sitting. FOLLOW-UP: -The patient is instructed to return as needed. ADDITIONAL DISCUSSION: -We discussed the difference between hurt vs harm as it relates to chronic pain. This document has been created with the use of voice recognition technology. It may contain inaccuracies: (e.g. misspellings, inaccurate syntax or word sense) that have escaped review. Time spent: 40 minutes today with this patient visit. This includes uajw-yf-edcm time, review of chart records regarding conservative care history, spine-pertinent imaging, and communication/care coordination with referring provider, problem-specific history-taking and counseling/education regarding treatment options. cc: Miguelina Clemente [id number] [facility] [id number] Results of consultation to be transmitted via electronic medical record for those providers who practice within [facility] or with access to [facility] via MD Connect, or via letter. ######################################################################## CHIEF COMPLAINT: Patient is here for the lower back pain. Has this pain for years and it is getting worse. Sometimes pain, from the lower back, radiates up to the middle back. Level of the pain is at pain is at 3/10. She exercising and it helps with pain. HPI: see Discussion above History of bowel or bladder dysfunction (not IBS or constipation): No History of previous spinal surgery: No History of spinal fracture: No Work Status: retired NON-OPERATIVE CARE: Medication(s): She has tried the following for relief of her symptoms: OTC NSAIDs (Aleve or Ibuprofen/A (more content not included)...[facility]10-20-[facility]23 History of Present illness Narrative* Bertha Yanez PA- C - 08/06/2023 10:58 AM EDT Images from the original note were not included. Bertha Yanez PA-C [facility] [address] [place] [address] 08/06/2023 ASSESSMENT AND PLAN: Assessment : Encounter Diagnosis ICD-10-CM 1. 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 M41.20 2. Degenerative scoliosis in adult patient M41.50 3. Chronic thoracic back pain, unspecified back pain laterality M54.6 G89.29 Discussion: Ms. Evans is a very pleasant 88-year-old female in remarkable overall health. She is here for evaluation of longstanding thoracolumbar scoliosis that was discovered when she was in her 20s. She feels that symptoms have gradually gotten worse over the past couple of years and she notices some pain in the middle of her back area in the thoracic and upper lumbar region as well as some painat the lower lumbar junction with the pelvis and sacrum. She has tried field care coordinator, massage therapy every 2 weeks, acupuncture, TENS unit in the chiropractic office, and physical therapy a number of years ago. All of these things have given her moderate relief without long-lasting relief. She uses occasional Aleve for her symptoms and finds that walking on a treadmill seems to help a little bit too. She participates in daily exercising at the [employer] center in [facility]. EXAM Highlights: She mobilizes somewhat slowly from sitting standing posture but is able to achievean erect stance. Gait is essentially normal without obvious favoring but she is somewhat slow in her pace. Balance is diminished as expected for her age Lumbar motion does not reproduce any severe pain but she does have generalized pain at PSIS bilaterally and lumbosacral junction. There is additional POP over thoracic paraspinal musculature in the whole mid and lower region of the thorax There is normal strength, sensation, reflexes in lower extremities IMAGING: We reviewed her recent thoracic x-rays which show the dextroscoliosis in the thoracic region and the beginnings of levoscoliosis in the lumbar region. Degenerative findings appear to be appropriate for her age without fracture SUMMARY/PLAN: She will continue conservative management and perhaps try supervised PT again at the [facility]. She will return here if symptoms appreciably change or worsen. At this point, I do not see any neurologic deficits or concerns amounting to yellow or red flags regarding her spine pain and findings on imaging or exam. 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 She will be getting up and moving around frequently throughout her day and adjusting her workstation to allow for proper posture. Plan : REFERAL FOR SERVICES: -Physical therapy will be instituted. ACTIVITY RECOMMENDATIONS: -The patient is encouraged to avoid bed rest and maintain normal activity. -The patient is encouraged to exercise regularly as tolerated. -The patient advised to avoid prolonged sitting. FOLLOW-UP: -The patient is instructed to return as needed. ADDITIONAL DISCUSSION: -We discussed the difference between hurt vs harm as it relates to chronic pain. This document has been created with the use of voice recognition technology. It may contain inaccuracies: (e.g. misspellings, inaccurate syntax or word sense) that have escaped review. Time spent: 40 minutes today with this patient visit. This includes dkxv-gw-lwnv time, review of chart records regarding conservative care history, spine- pertinent imaging, and communication/care coordination with referring provider, problem-specific history-taking and counseling/education regarding treatment options. cc: Miguelina Clemente [id number] [facility] [id number] Results of consultation to be transmitted via electronic medical record for those providers who practice within [facility] or with access to [facility] via MD Connect, or via letter. ######################################################################## CHIEF COMPLAINT: Patient is here for the lower back pain. Has this pain for years and it is gettingworse. Sometimes pain, from the lower back, radiates up to the middle back. Level of the pain is atpain is at 3/10. She exercising and it helps with pain. HPI: see Discussion above History of bowel or bladder dysfunction (not IBS or constipation): No History of previous spinal surgery: No History of spinal fracture: No Work Status: retired NON-OPERATIVE CARE: Medication(s): She has tried the following for relief of her symptoms: OTC NSAIDs (Aleve or Ibuprofen/Advil/Motrin) Physical Therapy: She has had physical therapy for her current symptoms. This was completed years ago. The therapy provided a notable amount of relief, however it did not last. Spinal Injections: She has not gotten prior spinal injections. Other: Chiropractice care: Acupuncture Massage therapy TENS unit Current Outpatient Medications Medication Sig Dispense Refill levothyroxine (SYNTHROID) 88 mcg tablet Take 1 tablet by mouth once daily. 90 tablet 1 ketoconazole (NIZORAL) 2 % shampoo Use to wash face and scalp two times a week. Lather and leave infor 3-5 minutes before rinsing. 240 mL 11 furosemide (LASIX) 20 mg tablet Take 1 tablet by mouth every Wednesday,Wednesday,Wednesday (0600). 36 tablet 3 cloNIDine TTS (CATAPRES-TTS) 0.1 mg/24 hr Apply 1 Patch as directed one time a week. 12 Patch 3 labetalol (TRANDATE) 200 mg tablet Take 1 tablet by mouth twice daily. 180 tablet 3 indapamide (LOZOL) 1.25 mg tablet Take 1 tablet by mouth once daily. 90 tablet 3 minoxidil (LONITEN) 2.5 mg tablet 1 tablet a day 90 tablet 3 Ferrous Sulfate (SLOW FE) 142 mg (45 mg iron) TbER Take 1 tablet by mouth two times a week. MULTIVITAMIN ORAL Take 1 tablet by mouth once daily. Melatonin 5 mg cap Take 1 capsule by mouth at bedtime as needed. Cholecalciferol, Vitamin D3, 50 mcg (2,000 unit) cap Take 1 capsule by mouth once daily. biotin 5 mg tab Take 5 mg by mouth once daily. cyclobenzaprine (FLEXERIL) 5 mg tablet Take 1 tablet by mouth at bedtime as needed for muscle spasm. (Patient not taking: Reported on 08/04/2023) 15 tablet 1 predniSONE (DELTASONE) 10 mg tablet Take 4 tabs daily x 3 days, then 3 tabs x 3 days, 2 tabs x 3 days, then 1 tab x3 days with food. (Patient not taking: Reported on 08/06/2023) 30 tablet 0 Current Facility-Administered Medications Medication Dose Route Frequency Provider Last Rate Last Admin perflutren lipid microspheres 1.3 mL in NaCl (PF) 0.9% 10 mL injection (DEFINITY) INTRAVENOUS DIRECTED PRN Melo Arango APRN.[employer] sodium chloride 0.9 % (flush) 10 mL (BD POSIFLUSH) 10 mL INTRAVENOUS DIRECTED PRN Melo Arango APRN.[employer] Allergies: Scopolamine, Amlodipine, Hctz [Thiazides], Hydralazine, Iron, Jardiance [Empagliflozin], Lipitor [Atorvastatin], Losartan, Spironolactone, Talwin [Pentazocine Lactate], and Verapamil Hcl PAST MEDICAL HISTORY Diagnosis Date Breast cancer (HCC) 09/[address] Nina moraes ER positive s/p surgery/radiation and AI Collagenous colitis 07/30/2017 On biopsy 2012. Diarrhea hx of colitis Diffuse cystic mastopathy Dyspareunia Essential hypertension H/O complete eye exam 03/13/2011 no retinopathy detected -both eyes - [facility] - return in 1 year - Dr. Ruby hair thinning sees Dr Choudhary Hormone replacement therapy (HRT) 1974-present stopped by 09/2011 hx of low vitamin D treated 08/2007 20.4 recheck only 23 06/25 improved to 54 PMH - PAST MEDICAL HISTORY OF cardiac arrhythmia- resolved with change in medication Stage 3 chronic kidney disease (HCC) 11/22/2019 Symptomatic states associated with artificial menopause 1975 THBSO for fibroids age 40 Vaginal atrophy 08/2015 offered vag DHEA Vaginismus for PT PAST SURGICAL HISTORY Procedure Laterality Date APPENDECTOMY BREAST BIOPSY CORE 04/16/2009 right breast stereo core biopsy BX BREAST NEEDLE CORE W/O IMAGING GUIDANCE SPX 04/02/2008 right breast stereo core biopsy BX/EXC LYMPH NODE OPEN DEEP AXILLARY NODE 10/30/2011 Right NL PM/SLNs CATARACT EXTRACTION HX Bilateral 09/04, 12/06 COLONOSCOPY FLX DX W/COLLJ SPEC WHEN PFRMD 09/08/2013 Colonoscopy MASTECTOMY, PARTIAL Right 10/30/2011 Right NL PM/SLNs PAST SURGICAL HISTORY OF bilat vein stripping PAST SURGICAL HISTORY OF Left 1991 left breast Atypical hyperplasia PAST SURGICAL HISTORY OF excision skin cancer S FINGER JOINT IMPLANT [id number] Left 11/2020 Candace Marmolejo left thumb joint replacement TOTAL ABDOMINAL HYSTERECT W/WO RMVL TUBE OVARY early Hysterectomy, CAROL, due to fibroids. Social History Tobacco Use Smoking status: Former Packs/day: 1.00 Years: 12.00 Additional pack years: 0.00 Total pack years: 12.00 Types: Cigarettes Quit date: 01/19/1967 Years since quittin.5 Smokeless tobacco: Never Vaping Use Vaping Use: Never used Substance Use Topics Alcohol use: Yes Alcohol/week: 5.0 - 7.0 standard drinks of alcohol Types: 5 - 7 Glasses of Wine (5oz) per week Drug use: No FAMILY HISTORY Problem Relation Age of Onset Alzheimer's Disease Mother hypertension/stroke d89 Hypertension Mother Stroke Mother Heart Father heart failure, d 72 other (emphseyma) Sister d 59 other (healthy) Daughter other (healthy) Daughter other (healthy) Son Breast Cancer Maternal Aunt REVIEW OF SYSTEMS: Constitutional: (-) Fever/Chills (-) Night Sweats (-) Weight Gain (+) Weight Loss (+) Fatigue Gastrointestinal: (+) Abdominal Pain (+) Diarrhea (-) Constipation (+) Nausea/Vomiting (-) Heart Burn Cardiovascular: (-) Chest Pain (+) Palpitations rare -mostly at night (-) Lightheadedness (+) Swelling of Ankles (-) Hx Heart Surgery/Stent Respiratory: (+) Short of Breath (-) Cough (-) Snoring Neurologic: (+) Headache (-) Blurry Vision (-) Fainting Skin: (-) Rashes (-) Itching (-) Other Lesions Psychiatric: (-) Depression (+) Anxiety (-) Suicidal Thoughts Genitourinary: (-) Frequency (-) Urgency Endocrine: (+) Thyroid Disorder (-) Diabetes Hematologic: (-) Prolonged Bleeding (+) Easy Bruising ################################################################################ ################################################# PHYSICAL EXAM: Blood pressure 125/67, pulse 69, height 166.4 cm (5' 5.5 ), weight 60.8 kg (134 lb 1.6 oz), SpO2 95%. Body mass index is 21.98 kg/m . General: Patient is a(n) good historian. The patient appears younger than the recorded age and is sitting comfortably in the examining room. The patient is average height in stature and is slender inappearance. This individual has difficulty arising from a sitting position and does not have difficulty acquiring a full, upright position when standing. Station and Gait: Normal stance, normal gait. The patient is able to but has difficulty in attempting to walk in a tandem gait. MENTAL STATUS EXAMINATION: The patient was neatly dressed and well groomed. The patient had excellent eye contact and rapport was easy to establish. The patient appeared to be alert and oriented in all spheres. The patient's overall medical judgment appeared to be excellent.The patient's motivation for treatment was judged based on today's encounter to be good. SPINE: Lumbar Lordosis: Decreased/flattened Thoracic Kyphosis: Increased RANGE OF MOTION: Flexion: normal, as expected for age and weight Pain: Yes, axial pain Extension: normal, as expected for age and weight Pain: Yes, axial pain Lateral Bending: Right normal, as expected for age and weight Pain: Yes, axial pain Left normal, as expected for age and weight Pain: Yes, axial pain PALPATION TENDERNESS: Moderate tenderness at: thoracic spine, lumbar region, and posterior pelvis Hyperesthesia present: No Regional symptoms present: No Increased pain with axial loading: No Distraction: Normal Pain responses: appropriate NEUROLOGIC EXAM: MOTOR: Requires verbal cues to minimize cog-wheel or give-way resistance: No Hip Flexor R: 5/5 L: 5/5 Hip Abductor R: 5/5 L: 5/5 Hip Adductor R: 5/5 L: 5/5 Knee Extension R: 5/5 L: 5/5 Foot Dorsiflexion R: 5/5 L: 5/5 Foot Plantar Flexion R: 5/5 L: 5/5 Ext Hallicus Longus R: 5/5 L: 5/5 Toe Extensors R: 5/5 L: 5/5 SENSATION to Light Touch: Lumbar: L2-S1 symmetrically normal. REFLEXES: Lower Extremity: All Lower Extremity reflexes symmetrically normal. Clonus: R: 0 beats/Normal L: 0 beats/Normal Babinski Sign: Negative bilaterally. VASCULAR: Skin appearance: Right: Warm/pink Left: Warm/pink Capillary refill: Right: brisk Left: brisk ADDITIONAL MUSCULOSKELETAL EXAM: HIP/PELVIS EXAM: Tenderness over the PSIS: Right: Yes Left: Yes Greater Trochanteric pain: Right: No Left: No SPECIAL TESTS: Straight Leg Raise: negative bilaterally Contralateral Straight Leg Raise: negative bilaterally IMAGING STUDIES: See discussion above [facility] NoteHNO ID: [id number] Author: Fabiola Mendez Tech Service: Radiology Author Type: Technologist Type: Progress Notes Filed: 08/04/2023 12:49 PM Note Text: Radiology Service Progress Note PATIENT NAME: Zenaida Evans DATE OF SERVICE: August 04, 2023 TIME: 12:48 PM PATIENT IDENTITY VERIFICATION COMPLETED USING TWO (2) IDENTIFIERS: Name and Date of confirmed by patient verbally. FALL SCREENING: Has the patient had 2 falls in the last year or 1 fall with injury or currently using an Ambulatory Assistive Device (Walker, Cane, Wheelchair, Crutches, etc.)? No PATIENT GENDER DATA: Female. status: : No status: NO. PATIENT RELEVANT IMPLANT DATA REVIEWED: Not Applicable RADIOLOGY DEPARTMENT: Bone Density PERIPHERAL IV DATA: Not applicable SIGNED BY: Cesar Hand August 04, 2023 12:48 [facility]10-18-2023 NoteHNO ID: [id number] Author: Virgil Gomez MD Service: ? Author Type: Physician Type: Progress Notes Filed: 08/08/2023 8:55 AM Note Text: DEPARTMENT OF GASTROENTEROLOGY - FOLLOW UP VISIT HISTORY OF PRESENT ILLNESS Zenaida Evans is a 88 year old female who presents today for follow up of epigastric and right upper quadrant abdominal pain. Last seen 08/06/2020 for diarrhea. HEPATOBILIARY W EF AND/OR RX 07/08/23 IMPRESSION: 1. Gallbladder is visualized. Patent cystic and common bile ducts. No scintigraphic evidence of acute cholecystitis. 2. Normal gallbladder ejection fraction. US RUQ/SPLEEN 04/01/23 IMPRESSION: Mild/borderline distention of the common bile duct. Coarse echotexture of the liver. Right renal cyst. DXA 12/2020 IMPRESSION: THE LOWEST T-SCORE IS -0.8 IN THE RIGHT HIP 1) DIAGNOSIS (based on BMD alone): NORMAL BONE DENSITY EGD 06/2020 Impression: - Z-line regular, 39 cm from the incisors. - 1 cm hiatal hernia. - Normal stomach. - Normal examined duodenum. - No specimens collected. Hemoglobin (g/dL) Date Value 07/06/2023 11.1 12/08/2021 10.5 Hematocrit (%) Date Value 07/06/2023 34.0 12/08/2021 31.4 WBC (k/uL) Date Value 07/06/2023 4.38 12/08/2021 4.18 Glucose (mg/dL) Date Value 04/26/2023 90 03/19/2021 90 Potassium (mmol/L) Date Value 04/26/2023 4.8 03/19/2021 5.0 Sodium (mmol/L) Date Value 04/26/2023 140 03/19/2021 139 Chloride (mmol/L) Date Value 04/26/2023 104 03/19/2021 105 CO2 (mmol/L) Date Value 04/26/2023 25 03/19/2021 24 Creatinine (mg/dL) Date Value 04/26/2023 1.47 03/19/2021 1.38 BUN (mg/dL) Date Value 04/26/2023 37 03/19/2021 36 Anion Gap (mmol/L) Date Value 04/26/2023 11 03/19/2021 10 Calcium (mg/dL) Date Value 03/19/2021 9.8 Calcium, Total (mg/dL) Date Value 04/26/2023 10.0 Protein, Total (g/dL) Date Value 04/12/2023 6.0 03/19/2021 6.5 Albumin (g/dL) Date Value 04/12/2023 4.0 03/19/2021 4.2 Bilirubin, Total (mg/dL) Date Value 04/12/2023 0.4 03/19/2021 0.5 Alkaline Phosphatase (U/L) Date Value 04/12/2023 53 03/19/2021 70 AST (U/L) Date Value 04/12/2023 18 03/19/2021 25 ALT (U/L) Date Value 04/12/2023 13 03/19/2021 16 Current Outpatient Medications Medication Sig Dispense Refill biotin 5 mg tab Take 5 mg by mouth once daily. (Patient not taking: Reported on 07/05/2023) Cholecalciferol, Vitamin D3, 50 mcg (2,000 unit) cap Take 1 capsule by mouth once daily. cloNIDine TTS (CATAPRES-TTS) 0.1 mg/24 hr Apply 1 Patch as directed one time a week. 12 Patch 3 cyclobenzaprine (FLEXERIL) 5 mg tablet Take 1 tablet by mouth at bedtime as needed for muscle spasm. 15 tablet 1 Ferrous Sulfate (SLOW FE) 142 mg (45 mg iron) TbER Take 1 tablet by mouth two times a week. furosemide (LASIX) 20 mg tablet Take 1 tablet by mouth every Wednesday,Wednesday,Wednesday (0600). 36 tablet 3 indapamide (LOZOL) 1.25 mg tablet Take 1 tablet by mouth once daily. 90 tablet 3 ketoconazole (NIZORAL) 2 % shampoo Use to wash face and scalp two times a week. Lather and leave in for 3-5 minutes before rinsing. 240 mL 11 labetalol (TRANDATE) 200 mg tablet Take 1 tablet by mouth twice daily. 180 tablet 3 levothyroxine (SYNTHROID) 88 mcg tablet Take 1 tablet by mouth once daily. 90 tablet 1 Melatonin 5 mg cap Take 1 capsule by mouth at bedtime as needed. minoxidil (LONITEN) 2.5 mg tablet 1 tablet a day 90 tablet 3 MULTIVITAMIN ORAL Take 1 tablet by mouth once daily. predniSONE (DELTASONE) 10 mg tablet Take 4 tabs daily x 3 days, then 3 tabs x 3 days, 2 tabs x 3 days, then 1 tab x3 days with food. (Patient not taking: Reported on 07/05/2023) 30 tablet 0 Current Facility-Administered Medications Medication Dose Route Frequency Provider Last Rate Last Admin perflutren lipid microspheres 1.3 mL in NaCl (PF) 0.9% 10 mL injection (DEFINITY) INTRAVENOUS DIRECTED PRN Melo Arango, APPLICATION SUPPORT TECHNICIAN.[employer] sodium chloride 0.9 % (flush) 10 mL (BD POSIFLUSH) 10 mL INTRAVENOUS DIRECTED PRN Melo Arango APPLICATION SUPPORT TECHNICIAN.[employer] ALLERGIES Allergen Reactions Scopolamine Mental Status Change Hallucinations Amlodipine Other: See Comments Significant swelling even on 2.5 mg per day. Hctz [Thiazides] Contraindication-Medical Surgical Hyponatremia at 12.5 mg. Hydralazine Intolerance nausea Iron GI Upset CAN TAKE SLO-IRON Jardiance [Empaglif* Diarrhea Lipitor [Atorvastat* Myalgia Losartan Other: See Comments BRIGHT with elevated potassium and creatinine. Spironolactone Intolerance Blood pressure went up Talwin [Pentazocine* Mental Status Change HALLUCINATIONS Verapamil Hcl GI Upset constipation PHYSICAL EXAMINATION General Appearance: alert, oriented x 3, pleasant and in no acute distress Assessment IMPRESSION The patient is an 88-year-old female. I had last seen the patient on 08/06/2020 with the following cumulative impression: 84-year-old fema (more content not included)...[facility] 08-04-2023 History of Present illness Narrative* Fabiola Mendez Tech - 08/04/2023 12:30 PM EDT Radiology Service Progress Note PATIENT NAME: Zenaida Evans DATE OF SERVICE: August 04, 2023 TIME: 12:48 PM PATIENT IDENTITY VERIFICATION COMPLETED USING TWO (2) IDENTIFIERS: Name and Date of confirmedby patient verbally. FALL SCREENING: Has the patient had 2 falls in the last year or 1 fall with injury or currently using an Ambulatory Assistive Device (Walker, Cane, Wheelchair, Crutches, etc.)? No PATIENT GENDER DATA: Female. status: : No status: NO. PATIENT RELEVANT IMPLANT DATA REVIEWED: Not Applicable RADIOLOGY DEPARTMENT: Bone Density PERIPHERAL IV DATA: Not applicable SIGNED BY: Cesar Hand August 04, 2023 12:48 PM documented in [facility]23 NoteHNO ID: [id number] Author: Cristina Greene AUD Service: ? Author Type: Senior Training And Development Rep Type: Progress Notes Filed: 08/16/2023 5:32 PM Note Text: [facility] [place] [place] AUDIOLOGIC EVALUATION REPORT Name: Zenaida Evans [facility]#: [id number] Date of Service: 07/26/2023 Date of : 1935 Age: [age] year old Referred by: Miguelina Clemente MD Referred for: Evaluation of suspected change in hearing, tinnitus, or balance. Referral documented: In an order in [facility] Patient's major complaints: Hearing loss: mostly difficult hearing in groups Tinnitus: denied Ear pain: denied Aural fullness: denied Otorrhea: denied History of ear infections: denied History of otologic surgeries: denied Dizziness: denied Noise exposure: denied History of chemotherapy or radiation: 10 years ago radiation-breast cancer History of head trauma: denied Zenaida Evans was seen for a recheck audiologic evaluation. See [facility] Audiogram for additional reported history and symptoms. Risk of Falls Documentation for over 65 years old: Zenaida Evans confirms having 2 or more falls in past 12 months or 1 fall in past 12 months with injury. Wearing socks on hard wood floors. - no major injuries. Now wears non-slip socks. No dizziness/imbalance. IMPRESSIONS RIGHT EAR: Sensorineural hearing loss LEFT EAR: Sensorineural hearing loss Comparison of today's results with previous test results (01/14/2021): Today's results suggest a decrease in both ears AUDIOLOGIC EVALUATION Following is a brief interpretation of the obtained findings from the audiologic evaluation. Refer to the Auditory Test Record for complete audiometric results. The patient was counseled about the test findings and appropriate audiologic recommendations were made. SUMMARY: Audiogram can be viewed under Forms/Audiology/SmartForm. OTOSCOPY RIGHT EAR: Otoscopic inspection revealed ear canal was clear with an identifiable cone of light. LEFT EAR: Otoscopic inspection revealed ear canal was clear with an identifiable cone of light. TYMPANOMETRY Description of procedure: This test is an objective evaluation of middle ear function. CPT code: 15513 RIGHT EAR: Did not test. LEFT EAR: Did not test. ACOUSTIC REFLEXES Description of procedure: This test is an objective measure of auditory and facial nerve pathways. CPT code: 99366, 68740 RIGHT EAR PROBE EAR: (ipsi right stimulus ear; contralateral left stimulus ear): Acoustic Reflex Pattern Did not test Acoustic Reflex Decay (left stimulus ear): Did not test. LEFT EAR PROBE EAR: (ipsi left stimulus ear; contralateral right stimulus ear): Acoustic Reflex Pattern Did not test Acoustic Reflex Decay (right stimulus ear):Did not test. PURE TONE AUDIOMETRY AND SPEECH TESTING Description of procedure: This test is an objective evaluation hearing sensitivity via air and bone conduction and speech recognition testing. CPT code:99447 RIGHT EAR: Hearing Sensitivity: Mild sloping to severe SNHL Word Recognition Score: Excellent (892%). WRS is consistent with hearing sensitivity. Words were presented at 75 dB HL is above (greater than or equal to 60 dB HL) intensity level for average conversational speech. The NU-6 Ordered by Difficulty Word List (25 words) was used for testing. LEFT EAR: Hearing Sensitivity: Mild sloping to severe SNHL Word Recognition Score: Excellent (96%). WRS is consistent with hearing sensitivity. Words were presented at 75 dB HL which is above (greater than or equal to 60 dB HL) intensity level for average conversational speech. The NU-6 Ordered by Difficulty Word List (25 words) was used for testing. RECOMMENDATIONS * Continue medical follow-up with Miguelina Clemente MD . * The patient was counseled regarding the need to continue to monitor hearing and have regular hearing assessments. * The patient was counseled regarding effective communication strategies to enhance communication ability. * Call [phone] to schedule an appointment to assess your need for hearing aids. Request a HAE appointment. Rody Dejesus, [facility] Clinical and Senior Hearing Implant Senior Training And Development Rep copied to: Miguelina Clemente MD RAYMUNDO Abbrev- iation Definition Degree of hearing sensitivity dB range WNL within normal limits WNL 0 - 20 SNHL sensorineural hearing loss Mild 20-40 CHL conductive hearing loss Moderate 40-55 MHL mixed hearing loss Moderately-Severe 55-70 WRS word recognition score Severe 70-90 ME middle ear Profound 90 + TM tympanic membranePrem[facility]10-09-2023 Instructions* Patient Instructions* Cristina Greene AUD - 07/26/2023 2:14 PM EDT Images from the original note were not included. [facility] [place] Section of Audiology Thank you for trusting the [facility] department with your hearing healthcare today. We appreciated the opportunity to meet with you today to assess your hearing status and needs. For you to be able to hear, the brain requires sound to travel through the entire auditory system which involves the outer ear, middle ear, inner ear, and auditory nerve. Symptoms of hearing loss, tinnitus, dizziness, or sensations in the ear may have many different causes. These symptoms may be due to problems associated with your ear, vision, brain, heart, medications, other health conditions, or history of exposure to loud noises. Today you completed a comprehensive evaluation of your auditory system. TEST SUMMARY: Based on today's evaluation, your results revealed sensorineural hearing loss in bothears. Today's results suggest a decrease in perfect thank you for telling me thatbo ears. And I will be in in just a moment we will going to change her headphonesSensorineural Hearing Loss: Hearingloss means we had to turn the sound up, outside the range of normal, in order for you to be able tohear it. This type of hearing loss affects the inner ear (cochlea) or auditory nerve. Loud noises, diseases or the aging process often cause it. Children are prone to this type due to congenital conditions (present at ), trauma during childbirth, head injuries or infections. Sensorineural hearing loss is often permanent. Hearing aids and hearing assistive devices can help. Based on today's test results and if you feel like your hearing loss is impacting your communication with others, you are a candidate for hearing technology. To schedule an appointment to discuss options for hearing technology, please call our scheduling line at [phone] and ask for a Hearing Aid Evaluation appointment at your preferred [facility] location. You can request this appointment with your gyro mechanic through [employer], as well. In order to investigate a potential insurance benefit for hearing aids, please plan to schedule your appointment for at least 1 week from the time of your phone call so that your insurance benefit can be verified. If there is no insurance benefit, please be aware there is a $100 [id number] fee due at time of service. Listed below are some communication strategies that help you hear others: 1) Facing communication partner. 2) Removing physical or visual barriers. 3) Maintaining a maximum distance for 6-10 feet from communication partner. 4) Encouraging communication partners to use clear speech and get their attention before speaking. 5) Reducing or removing background noise sources. 6) Taking turns speaking in conversation. 7) Ensuring the listener and speaker's voice are level with each other (both seated or both standing). Recommendations: * Continue medical follow-up with Miguelina Clemente MD . * The patient was counseled regarding the need to continue to monitor hearing and have regular hearing assessments. * The patient was counseled regarding effective communication strategies to enhance communication ability. * Call [phone] to schedule an appointment to assess your need for hearing aids. Request a HAE appointment. Thank you for trusting and choosing [facility]iology with your hearing care needs. Ple[place] not hesitate to reach out with any questions or concerns. Sincerely, RODY Dejesus, [facility] Clinical and Senior Hearing Implant Senior Training And Development Rep documented in this encounterMer[facility]10-09-2023 History of Present illness Narrative* Cristina Greene AUD - 07/26/2023 1:45 PM EDT [facility] [place] [place] AUDIOLOGIC EVALUATION REPORT Name: Zenaida Evans [facility]#: [id number] Date of Service: 07/26/2023 Date of : 1935 Age: [age] year old Referred by: Miguelina Clemente MD Referred for: Evaluation of suspected change in hearing, tinnitus, or balance. Referral documented: In an order in [facility] Patient's major complaints: Hearing loss: mostly difficult hearing in groups Tinnitus: denied Ear pain: denied Aural fullness: denied Otorrhea: denied History of ear infections: denied History of otologic surgeries: denied Dizziness: denied Noise exposure: denied History of chemotherapy or radiation: 10 years ago radiation-breast cancer History of head trauma: denied Zenaida Evans was seen for a recheck audiologic evaluation. See [facility] Audiogram for additional reported history and symptoms. Risk of Falls Documentation for over 65 years old: Zenaida Evans confirms having 2 or more falls in past 12 months or 1 fall in past 12 months with injury. Wearing socks on hard wood floors. - no major injuries. Now wears non- slip socks. No dizziness/imbalance. IMPRESSIONS RIGHT EAR: Sensorineural hearing loss LEFT EAR: Sensorineural hearing loss Comparison of today's results with previous test results (01/14/2021): Today's results suggest a decrease in both ears AUDIOLOGIC EVALUATION Following is a brief interpretation of the obtained findings from the audiologic evaluation. Refer to the Auditory Test Record for complete audiometric results. The patient was counseled about the test findings and appropriate audiologic recommendations were made. SUMMARY: Audiogram can be viewed under Forms/Audiology/SmartForm. OTOSCOPY RIGHT EAR: Otoscopic inspection revealed ear canal was clear with an identifiable cone of light. LEFT EAR: Otoscopic inspection revealed ear canal was clear with an identifiable cone of light. TYMPANOMETRY Description of procedure: This test is an objective evaluation of middle ear function. CPT code: 57509 RIGHT EAR: Did not test. LEFT EAR: Did not test. ACOUSTIC REFLEXES Description of procedure: This test is an objective measure of auditory and facial nerve pathways. CPT code: 67951, 82069 RIGHT EAR PROBE EAR: (ipsi right stimulus ear; contralateral left stimulus ear): Acoustic Reflex Pattern Did not test Acoustic Reflex Decay (left stimulus ear): Did not test. LEFT EAR PROBE EAR: (ipsi left stimulus ear; contralateral right stimulus ear): Acoustic Reflex Pattern Did not test Acoustic Reflex Decay (right stimulus ear):Did not test. PURE TONE AUDIOMETRY AND SPEECH TESTING Description of procedure: This test is an objective evaluation hearing sensitivity via air and boneconduction and speech recognition testing. CPT code:65956 RIGHT EAR: Hearing Sensitivity: Mild sloping to severe SNHL Word Recognition Score: Excellent (892%). WRS is consistent with hearing sensitivity. Words were presented at 75 dB HL is above (greater than or equal to 60 dB HL) intensity level for average conversational speech. The NU-6 Ordered by Difficulty Word List (25 words) was used for testing. LEFT EAR: Hearing Sensitivity: Mild sloping to severe SNHL Word Recognition Score: Excellent (96%). WRS is consistent with hearing sensitivity. Words were presented at 75 dB HL which is above (greater than or equal to 60 dB HL) intensity level for average conversational speech. The NU-6 Ordered by Difficulty Word List (25 words) was used for testing. RECOMMENDATIONS * Continue medical follow-up with Miguelina Clemente MD . * The patient was counseled regarding the need to continue to monitor hearing and have regular hearing assessments. * The patient was counseled regarding effective communication strategies to enhance communication ability. * Call [phone] to schedule an appointment to assess your need for hearing aids. Request a HAE appointment. Rody Dejesus, [facility] Clinical and Senior Hearing Implant Senior Training And Development Rep copied to: Miguelina Clemente MD RAYMUNDO Abbrev- iation Definition Degree of hearing sensitivity dB range WNL within normal limits WNL 0 - 20 SNHL sensorineural hearing loss Mild 20-40 CHL conductive hearing loss Moderate 40-55 MHL mixed hearing loss Moderately-Severe 55-70 WRS word recognition score Severe 70-90 ME middle ear Profound 90 + TM tympanic membrane documented in this encounterMer[facility]09-21-2023 NoteHNO ID: [id number] Author: Tracy Chisholm RT(R) Service: Nuclear Medicine Author Type: Technologist Type: Progress Notes Filed: 07/08/2023 2:31 PM Note Text: RADIOLOGY SERVICE PROGRESS NOTE SERVICE DATE: 07/08/2023 SERVICE TIME: 12:00 PM PATIENT IDENTITY VERIFICATION COMPLETED USING TWO (2) STANDARD IDENTIFIERS: Name and Date of confirmed by patient verbally FALL SCREENING: Has the patient had 2 falls in the last year or 1 fall with injury or currently using an Ambulatory Assistive Device (Walker, Cane, Wheelchair, Crutches, etc.)? No PATIENT GENDER DATA: .female : No ALLERGIES: Reviewed and unchanged MEDICATIONS REVIEWED: No PATIENT RELEVANT IMPLANT DATA REVIEWED: Not Applicable CREATININE: Creatinine Date Value Ref Range Status 04/26/2023 1.47 (H) 0.58 - 0.96 mg/dL Final 04/12/2023 1.75 (H) 0.58 - 0.96 mg/dL Final 01/08/2023 1.38 (H) 0.58 - 0.96 mg/dL Final Estimated Glomerular Filtration Rate Date Value Ref Range Status 04/26/2023 35 (L) >=60 mL/min/1.73m? Final Comment: Estimated Glomerular Filtration Rate (eGFR) is calculated using the 2020 CKD-EPI creatinine equation. This equation utilizes serum creatinine, sex, and age as parameters. The creatinine assay has traceable calibration to isotope dilution-mass spectrometry. Refer to KDIGO guidelines for clinical interpretation. In patients with unstable renal function, e.g. those with acute kidney injury, the eGFR may not accurately reflect actual GFR. eGFR- Date Value Ref Range Status 03/19/2021 44 Final P.O.C.T. RESULTS: N/A July 08, [address] PERFORMED: No IV SITE: Ambulatory: A peripheral IV was started in the Left forearm with a Angio cath: 24 gauge. POST EXAM PIV STATUS: Discontinued PROCEDURE TYPE: NM INJECT: Hepatobiliary with Gallbladder EF. 2.5 mCi Tc99m CHOLETEC. CCK 1.21 micrograms intravenous at 13:53. ADMINISTRATION TIME: 12:35 PATIENT DISCHARGED TO: Ambulatory patient, left DC department area. A Diagnostic radioactive procedure has taken place, with no further precautions necessary other than routine body substance precautions. More information regarding radiation safety can be found using this link: [email or web address] SIGNATURE: RT Bowen(R) PATIENT NAME: Zenaida Evans DATE: July 08, 2023 TIME: 12:46 PM PAGER/CONTACT #:[facility]09-21-2023 History of Present illness Narrative* Tracy Chisholm RT(R) - 07/08/2023 12:00 PM EDT RADIOLOGY SERVICE PROGRESS NOTE SERVICE DATE: 07/08/2023 SERVICE TIME: 12:00 PM PATIENT IDENTITY VERIFICATION COMPLETED USING TWO (2) STANDARD IDENTIFIERS: Name and Date of confirmed by patient verbally FALL SCREENING: Has the patient had 2 falls in the last year or 1 fall with injury or currently using an Ambulatory Assistive Device (Walker, Cane, Wheelchair, Crutches, etc.)? No PATIENT GENDER DATA: .female : No ALLERGIES: Reviewed and unchanged MEDICATIONS REVIEWED: No PATIENT RELEVANT IMPLANT DATA REVIEWED: Not Applicable CREATININE: Creatinine Date Value Ref Range Status 04/26/2023 1.47 (H) 0.58 - 0.96 mg/dL Final 04/12/2023 1.75 (H) 0.58 - 0.96 mg/dL Final 01/08/2023 1.38 (H) 0.58 - 0.96 mg/dL Final Estimated Glomerular Filtration Rate Date Value Ref Range Status 04/26/2023 35 (L) >=60 mL/min/1.73m Final Comment: Estimated Glomerular Filtration Rate (eGFR) is calculated using the 2020 CKD-EPI creatinine equation. This equation utilizes serum creatinine, sex, and age as parameters. The creatinine assay has traceable calibration to isotope dilution- mass spectrometry. Refer to KDIGO guidelines for clinical interpretation. In patients with unstable renal function, e.g. those with acute kidney injury, the eGFRmay not accurately reflect actual GFR. eGFR- Date Value Ref Range Status 03/19/2021 44 Final P.O.C.T. RESULTS: N/A July 08, [address] PERFORMED: No IV SITE: Ambulatory: A peripheral IV was started in the Left forearm with a Angio cath: 24 gauge. POST EXAM PIV STATUS: Discontinued PROCEDURE TYPE: NM INJECT: Hepatobiliary with Gallbladder EF. 2.5 mCi Tc99m CHOLETEC. CCK 1.21 micrograms intravenous at 13:53. ADMINISTRATION TIME: 12:35 PATIENT DISCHARGED TO: Ambulatory patient, left DC department area. A Diagnostic radioactive procedure has taken place, with no further precautions necessary other than routine body substance precautions. More information regarding radiation safety can be found usingTelesprees link: [email or web address] 20Diagnostic%20Nuclear%20Medicine%[email or web address] SIGNATURE: RT Bowen(Renny) PATIENT NAME: Zenaida Evans DATE: July 08, 2023 TIME: 12:46 PM PAGER/CONTACT #: documented in this encounterMercy [facility]09-18-2023 NoteHNO ID: [id number] Author: Miguelina Clemente MD Service: ? Author Type: Physician Type: Progress Notes Filed: 07/05/2023 3:22 PM Note Text: Zenaida Evans is a 88 year old female here for a Medicare wellness visit. Believed may be due for bone density. Reviewed last 12/2020. Also not sure what is following with Dr. Chamberlain for. Reviewed saw Dr. Chamberlain last in 2019. States the pain in the back is gone. Reviewed US with sludge and dilation of cbd. States other back pain acting up because of scoliosis. Has adjustment and gets TENS unit. Has not seen a spine doctor. Has not tried muscle relaxer. Discussed as needed with caution low dose. Went through a sleep psychology program years ago. B's at home 06/30 128/64 85 07/04 125/56 85 Health Risk Assessment In general, health is: Good Concerns with balance:Not at all Concerns with teeth or dentures:Not at all Concerns with sexual function:Not at all denies bladder concerns. [place] anxious, stressed, angry, irritable, lonely, isolated, or had thoughts of hurting themself: Not at all Has little interest or pleasure in doing things: Several days Bothered by feeling down, depressed, or hopeless: Several days States stressful caring for . Is now at [facility], now getting rehab. Needs help with grocery shopping, cooking, housework, bathing, grooming, dressing, eating, sitting or standing, walking, using the toilet, handling finances, taking medications, using the telephone, or driving: Yes Ordering several meals a week from someone. 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 Driving okay. Can afford a hazardous materials tanker driver. Following safety precautions in the home environment and vehicle: removed throw rugs from floors, installed grab bars in the bathroom, handrails in stairwells, having adequate lighting, wearing seatbelt at all times?: Yes [facility] came in and looked over everything. Smokes cigarettes, vapes, or chew tobacco: No Eats healthy foods including fruits, vegetables, whole grains, and fiber-rich foods: Nearly every day Number of days per week engages in exercise: 3 days Misses alcohol. Average alcohol consumption: 4 or more times a week Usually daily glass of wine. Current Providers Specialists: I have reviewed specialist-related care of the patient in the medical record. Dermatology new in [place] for Basal Cell Cardiology Gastroenterology Alicia Escobedo for breast follow up. No need to follow up with Dr. Rodgers. Cuauhtemoc Meyers for thumb issues. Medical/Family history review Reviewed and updated problem list, medical/surgical/family/social history, medications, and allergies. PAST SURGICAL HISTORY Procedure Laterality Date APPENDECTOMY BREAST BIOPSY CORE 04/16/2009 right breast stereo core biopsy BX BREAST NEEDLE CORE W/O IMAGING GUIDANCE SPX 04/02/2008 right breast stereo core biopsy BX/EXC LYMPH NODE OPEN DEEP AXILLARY NODE 10/30/2011 Right NL PM/SLNs CATARACT EXTRACTION HX Bilateral 09/04, 12/06 COLONOSCOPY FLX DX W/COLLJ SPEC WHEN PFRMD 09/08/2013 Colonoscopy MASTECTOMY, PARTIAL Right 10/30/2011 Right NL PM/SLNs PAST SURGICAL HISTORY OF bilat vein stripping PAST SURGICAL HISTORY OF Left 1990 left breast Atypical hyperplasia PAST SURGICAL HISTORY OF excision skin cancer TOTAL ABDOMINAL HYSTERECT W/WO RMVL TUBE OVARY early 1969's Hysterectomy, CAROL, due to fibroids. Left thumb joint replaced 11/[address] Meyers Opioid use review Patient is not currently using opioids. Depression screening Depression Screening PHQ-2 Score PHQ-9 Score 03/31/2023 2 7 PDMP website checked and validated. All prescriptions have been APPROPRIATELY filled. No suspicious activity was identified. 07/05/2023 by Miguelina Clemente MD Depression screening tool completed and reviewed. Based on score and interview, patient is not at risk for depression. Screening tool discussed with patient, and I recommended no further intervention at this time. Cognitive screening Mini Cog Score: 5 Functional Observation Was the patient's timed Up AND Go test unsteady or ? 12 seconds? No Advance Care Planning End of Life planning discussed, including patient's advanced directive wishes: Yes Up to date on file. and then daughter Bernadette and then son Zcah. No chest pain or shortness of breath. Measurements BP 186/75 Pulse 78 Temp (Src) 97.7 (Oral) Ht 5' 6.5 (1.69m) Wt 133 lb 4 oz (60.4kg) SpO2 97% BMI 21.19 kg/(m2). Hemoglobin (g/dL) Date Value 01/08/2023 12.3 12/08/2021 10.5 Hematocrit (%) Date Value 01/08/2023 35.8 12/08/2021 31.4 WBC (k/uL) Date Value 01/08/2023 4.28 12/08/2021 4.18 Platelet Count (k/uL) Date Value 01/08/2023 181 12/08/2021 200 Component Latest Ref Rng AND Units 01/08/2023 04/12/2023 04/26/2023 WBC 3.70 - 11.00 k/uL 4.28 RBC 3.90 - 5.20 m/uL 3.80 (L) Hemoglobin 11.5 - 15.5 g/dL 12.3 Hematocrit 36.0 - 46.0 % 35.8 (L) MCV 80.0 - 100 (more content not included)...[facility] 07-05-2023 History of Present illness Narrative* Miguelina Clemente MD - 07/05/2023 1:15 PM EDT Zenaida Evans is a 88 year old female here for a Medicare wellness visit. Believed may be due for bone density. Reviewed last 12/2020. Also not sure what is following with Dr. Chamberlain for. Reviewed saw Dr. Chamberlain last in 2019. States the pain in the back is gone. Reviewed US with sludge and dilation of cbd. States other back pain acting up because of scoliosis. Has adjustment and gets TENS unit. Has not seen a spine doctor. Has not tried muscle relaxer. Discussed as needed with caution low dose. Went through a sleep psychology program years ago. B's at home 06/30 128/64 85 07/04 125/56 85 Health Risk Assessment In general, health is: Good Concerns with balance:Not at all Concerns with teeth or dentures:Not at all Concerns with sexual function:Not at all denies bladder concerns. [place] anxious, stressed, angry, irritable, lonely, isolated, or had thoughts of hurting themself: Not at all Has little interest or pleasure in doing things: Several days Bothered by feeling down, depressed, or hopeless: Several days States stressful caring for . Is now at [facility], now getting rehab. Needs help with grocery shopping, cooking, housework, bathing, grooming, dressing, eating, sitting or standing, walking, using the toilet, handling finances, taking medications, using the telephone, or driving: Yes Ordering several meals a week from someone. 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 Driving okay. Can afford a hazardous materials tanker driver. Following safety precautions in the home environment and vehicle: removed throw rugs from floors, installed grab bars in the bathroom, handrails in stairwells, having adequate lighting, wearing seatbelt at all times?: Yes [facility] came in and looked over everything. Smokes cigarettes, vapes, or chew tobacco: No Eats healthy foods including fruits, vegetables, whole grains, and fiber-rich foods: Nearly every day Number of days per week engages in exercise: 3 days Misses alcohol. Average alcohol consumption: 4 or more times a week Usually daily glass of wine. Current Providers Specialists: I have reviewed specialist-related care of the patient in the medical record. Dermatology new in [place] for Basal Cell Cardiology Gastroenterology Alicia Escobedo for breast follow up. No need to follow up with Dr. Rodgers. Cuauhtemoc Meyers for thumb issues. Medical/Family history review Reviewed and updated problem list, medical/surgical/family/social history, medications, and allergies. PAST SURGICAL HISTORY Procedure Laterality Date APPENDECTOMY BREAST BIOPSY CORE 04/16/2009 right breast stereo core biopsy BX BREAST NEEDLE CORE W/O IMAGING GUIDANCE SPX 04/02/2008 right breast stereo core biopsy BX/EXC LYMPH NODE OPEN DEEP AXILLARY NODE 10/30/2011 Right NL PM/SLNs CATARACT EXTRACTION HX Bilateral 09/04, 12/06 COLONOSCOPY FLX DX W/COLLJ SPEC WHEN PFRMD 09/08/2013 Colonoscopy MASTECTOMY, PARTIAL Right 10/30/2011 Right NL PM/SLNs PAST SURGICAL HISTORY OF bilat vein stripping PAST SURGICAL HISTORY OF Left 1991 left breast Atypical hyperplasia PAST SURGICAL HISTORY OF excision skin cancer TOTAL ABDOMINAL HYSTERECT W/WO RMVL TUBE OVARY early Hysterectomy, CAROL, due to fibroids. Left thumb joint replaced 11/[address] Meyers Opioid use review Patient is not currently using opioids. Depression screening Depression Screening PHQ-2 Score PHQ-9 Score 03/31/2023 2 7 PDMP website checked and validated. All prescriptions have been APPROPRIATELY filled. No suspiciousactivity was identified. 07/05/2023 by Miguelina Clemente MD Depression screening tool completed and reviewed. Based on score and interview, patient is not at risk for depression. Screening tool discussed with patient, and I recommended no further interventionat this time. Cognitive screening Mini Cog Score: 5 Functional Observation Was the patient's timed Up & Go test unsteady or ? 12 seconds? No Advance Care Planning End of Life planning discussed, including patient's advanced directive wishes: Yes Up to date on file. and then daughter Bernadette and then son Zach. No chest pain or shortness of breath. Measurements BP 186/75 Pulse 78 Temp (Src) 97.7 (Oral) Ht 5' 6.5 (1.69m) Wt 133 lb 4 oz (60.4kg) [id number]% BMI 21.19 kg/(m^2). Hemoglobin (g/dL) Date Value 01/08/2023 12.3 12/08/2021 10.5 Hematocrit (%) Date Value 01/08/2023 35.8 12/08/2021 31.4 WBC (k/uL) Date Value 01/08/2023 4.28 12/08/2021 4.18 Platelet Count (k/uL) Date Value 01/08/2023 181 12/08/2021 200 Component Latest Ref Rng & Units 01/08/2023 04/12/2023 04/26/2023 WBC 3.70 - 11.00 k/uL 4.28 RBC 3.90 - 5.20 m/uL 3.80 (L) Hemoglobin 11.5 - 15.5 g/dL 12.3 Hematocrit 36.0 - 46.0 % 35.8 (L) MCV 80.0 - 100.0 fL 94.2 MCH 26.0 - 34.0 pg 32.4 MCHC 30.5 - 36.0 g/dL 34.4 RDW-CV 11.5 - 15.0 % 13.2 Platelet Count 150 - 400 k/uL 181 MPV 9.0 - 12.7 fL 9.8 Neut% % 43.9 Abs Neut (ANC) 1.45 - 7.50 k/uL 1.88 Lymph% % 42.3 Abs Lymph 1.00 - 4.00 k/uL 1.81 [place]% % 9.6 Abs [place] <0.87 k/uL 0.41 Eosin% % 3.3 Abs Eosin <0.46 k/uL 0.14 Baso% % 0.7 Abs Baso <0.11 k/uL 0.03 Immature Gran % % 0.2 IMMATURE GRANS (ABS) <0.10 k/uL <0.03 NRBC /100 WBC 0.0 Absolute nRBC <0.01 k/uL <0.01 DTYPE Auto Glucose 74 - 99 mg/dL 132 (H) 100 (H) 90 BUN 7 - 21 mg/dL 47 (H) 44 (H) 37 (H) Creatinine 0.58 - 0.96 mg/dL 1.38 (H) 1.75 (H) 1.47 (H) Sodium 136 - 144 mmol/L 139 142 140 Potassium 3.7 - 5.1 mmol/L 4.3 4.5 4.8 Chloride 97 - 105 mmol/L 104 104 104 CO2 22 - 30 mmol/L 27 28 25 Anion Gap 9 - 18 mmol/L 8 (L) 10 11 Calcium 8.5 - 10.2 mg/dL 9.8 9.3 10.0 eGFR >=60 mL/min/1.73m 37 (L) 28 (L) 35 (L) Cholesterol, Total <200 mg/dL 209 (H) Triglyceride <150 mg/dL 56 HDL Cholesterol >39 mg/dL 67 Non HDL Cholesterol <130 mg/dL 142 (H) Fasting Time hrs 10 VLDL Cholesterol <30 mg/dL 11 TC:HDL Ratio <5.10 3.12 LDL Cholesterol <100 mg/dL 131 (H) LDL:HDL Ratio <2.54 1.96 Albumin 3.9 - 4.9 g/dL 4.0 Bilirubin, Total 0.2 - 1.3 mg/dL 0.4 Bilirubin, Conjug <0.2 mg/dL <0.2 Alkaline Phosphatase 34 - 123 U/L 53 AST 13 - 35 U/L 18 ALT 7 - 38 U/L 13 Protein, Total 6.3 - 8.0 g/dL 6.0 (L) Recheck 138/60 No carotid bruits No lymphadenopathy neck Lungs clear to auscultation bilaterally Cardiovascular regular rate and rhythm TSH Date Value 06/23/2022 2.590 mIU/L 07/07/2021 2.180 uU/mL 04/24/2020 2.790 uU/mL ) Visual acuity (required for Welcome to Medicare): follows with optometry/ophthalmology will follow up with fall. Hearing Evaluation: hard of hearing states needs to follow up on that. ASSESSMENT/PLAN: we are out of high dose flu shot today. 1. Medicare annual wellness visit, subsequent - ICD9: V70.0, ICD10: Z00.00 (primary diagnosis) - Counseled on healthy diet and regular exercise - DXA-AXIAL SKELETON - [facility] - HEARING TEST/AUDIOGRAM - NM HEPATOBILIARY W EF AND/OR RX Return in about 4 months (around 11/04/2023). Recommend covid vaccine when available. 2. Asymptomatic postmenopausal state - ICD9: V49.81, ICD10: Z78.0 - DXA-AXIAL SKELETON 3. Thoracogenic scoliosis, unspecified spinal region - ICD9: 737.34, ICD10: M41.30 - [facility] 4. Chronic thoracic back pain, unspecified back pain laterality - ICD9: 724.1, 338.29, ICD10: M54.6, G89.29 - [facility] 5. Decreased hearing of both ears - ICD9: 389.9, ICD10: H91.93 - HEARING TEST/AUDIOGRAM 6. Anemia due to stage 3b chronic kidney disease (HCC) - ICD9: 285.21, 585.3, ICD10: N18.32, D63.1 Recommend proceed with hb ordered q [address] Rodgers. To follow up if drift under 10. 7. Epigastric pain - ICD9: 789.06, ICD10: R10.13 I believe the right upper back pain may still be related to the issue Of the gallbladder with pain radiating behind right shoulder blade. Recommend follow up with gi forsludge and liver changes on ultrasound. - NM HEPATOBILIARY W EF AND/OR RX Miguelina Clemente MD [facility] NoteHNO ID: [id number] Author: Kelsi Taylor, PT Service: ? Author Type: Physical Therapist Type: Progress Notes Filed: 04/08/2023 10:45 AM Note Text: Episode Visit Count: 1 Therapist That Will Accept/Oversee The Plan Of Care: Kelsi Taylor Start of Care Date: 04/08/23 Onset Date: 03/08/23 Plan of Care Certification Date: 04/08/23 Next Certification Due Date: 04/08/23 Patient Identified by Name and Date of : Yes REHABILITATION AND SPORTS THERAPY PHYSICAL THERAPY EVALUATION PLAN OF CARE: Assessment: Zenaida Evans presents with diagnosis of acute right-sided thoracic back pain that interferes with Comments Pt. reports no movement or posture creates the symptoms.. She presents with impairments in posture. Patient did not complete the PROMIS? (Patient Reported Outcome Measures Information System). Prognosis for therapy is Excellent due to: current objective clinical presentation . She will benefit from skilled therapy services to meet the goals established for this plan of care as noted below. Classification Low Back Pain Subgroup Classification: Spinal mobilization subgroup: recommended visits 6. Spinal Mobilization Subgroup Classification based on: ROM loss Goals for Episode of Care: created on 04/08/23 through 04/08/23 Pt. Denies pain. No concordant symptoms reproduced with MSK exam. Patient Goals: rule out MSK origin of concordant symptomsof cervical, thoracic, and lumbar spine Planned Interventions, Frequency, and Duration: Current Frequency: 1 visit Duration: 1 visit Total Number of Visits Planned: 0 (no additional visits planned) Planned Treatment Interventions: Therapeutic exercise (31088), Neuromuscular re-education (11277), Manual therapy (55485), Therapeutic activities (30893), Self-long-term management (74871), Gait Training (52108), Patient/Family/Caregiver Education PLAN FOR NEXT VISIT: DC - no concordant symptoms reproduced with MSK movement or positional change Patient demonstrates good understanding of plan of care and treatment. The above goals and plan of care were discussed and agreed upon by patient/family. SUBJECTIVE: Zenaida Evans is a 87 year old female seen today for for right side flank/abdominal pain that onset a month ago. Pt. reports it has been reducing over the past week with medication Rx'd and is non-existent today. She has hx of chronic LBP scoliosis but this does not bother her today. She is not sure what PT can do for it or why she is here. Per pt. chart review: US completed course echotexture of liver and distention of common bile duct. Pt. symptom pattern description consistent with that of the referral patterns of the gall bladder and liver. Pt. must leave this appointment early to take her to his appointment for his eyes. When pt. was having severe pain a few weeks ago, she states that no movement or posture made her symptoms worse or better. Patient Goals: rule out MSK origin of concordant symptomsof cervical, thoracic, and lumbar spine Functional Limitations: Comments Functional Limitation Comments: Pt. reports no movement or posture creates the symptoms. Prior Level of Function: Independent without limitations Intake Information: Prescription present Previous Treatment: (Rx'd medications) Falls Interview: No positive findings with falls interview Red Flags Vertebral Fracture Red Flags: Age >70, Female Vertebral Fracture Clinical Reasoning: Proceed with caution due to the above (1-2) risk factors Abdominal Aortic Aneurysm Red Flags: Age >60 Abdominal Aortic Aneurysm Clinical Reasoning: Proceed with caution Cancer Red Flags: Age >50 or <20 Cancer Clinical Reasoning: Proceed with caution Infection Clinical Reasoning: No identified risk factors. Cauda Equina Syndrome Clinical Reasoning: No identified risk factors. Cervical Arterial Dysfunction Clinical Reasoning: No identified risk factors Cervical Myelopathy: Age > 45 yo Cervical Myelopathy Diagnostic Rule: Proceed with caution Red Flags - Cervical Cancer Red Flags: Age >50 or <20 Cancer Clinical Reasoning: Proceed with caution Infection Clinical Reasoning: No identified risk factors. Cervical Arterial Dysfunction Clinical Reasoning: No identified risk factors Cervical Myelopathy: Age > 45 yo Cervical Myelopathy Diagnostic Rule: Proceed with caution Spine History Symptoms Location at Onset: (R flank and abdomen) Symptoms Since Onset: Improving Pain is Worse Always: No position Pain is Better Always: No position Sleep Affected by Pain: Not affected by pain Pain: Pain Pain Level: 0 Pain Location: Thoracic Spine - Right, Abdomen Description: Aching Frequency: Continuous Post Treatment Pain Post Treatment Pain Level: 0 Post Treatment Pain Location: Thoracic Spine - Right, Abdomen Post Treatment Symptoms: no concordant symptoms reproduced throughout viist PROMIS Scales T-scores: mean of general popul (more content not included)...[facility]06-22-2023 History of Present illness Narrative* Kelsi Taylor, PT - 04/08/2023 10:08 AM EDT Episode Visit Count: 1 Therapist That Will Accept/Oversee The Plan Of Care: Kelsi Taylor Start of Care Date: 04/08/23 Onset Date: 03/08/23 Plan of Care Certification Date: 04/08/23 Next Certification Due Date: 04/08/23 Patient Identified by Name and Date of : Yes REHABILITATION AND SPORTS THERAPY PHYSICAL THERAPY EVALUATION PLAN OF CARE: Assessment: Zenaida Evans presents with diagnosis of acute right-sided thoracic back pain that interferes with Comments Pt. reports no movement or posture creates the symptoms.. She presents with impairments in posture. Patient did not complete the PROMIS (Patient Reported Outcome Measures Information System). Prognosis for therapy is Excellent due to: current objective clinical presentation . She will benefit from skilled therapy services to meet the goals established for this plan of care as noted below. Classification Low Back Pain Subgroup Classification: Spinal mobilization subgroup: recommended visits 6. Spinal Mobilization Subgroup Classification based on: ROM loss Goals for Episode of Care: created on 04/08/23 through 04/08/23 Pt. Denies pain. No concordant symptoms reproduced with MSK exam. Patient Goals: rule out MSK origin of concordant symptomsof cervical, thoracic, and lumbar spine Planned Interventions, Frequency, and Duration: Current Frequency: 1 visit Duration: 1 visit Total Number of Visits Planned: 0 (no additional visits planned) Planned Treatment Interventions: Therapeutic exercise (31869), Neuromuscular re- education (48162), Manual therapy (00400), Therapeutic activities (30872), Self- long-term management (25403), Gait Training (18613), Patient/Family/Caregiver Education PLAN FOR NEXT VISIT: DC - no concordant symptoms reproduced with MSK movement or positional change Patient demonstrates good understanding of plan of care and treatment. The above goals and plan of care were discussed and agreed upon by patient/family. SUBJECTIVE: Zenaida Evans is a 87 year old female seen today for for right side flank/abdominal pain that onset a month ago. Pt. reports it has been reducing over the past week with medication Rx'dand is non-existent today. She has hx of chronic LBP scoliosis but this does not bother her today. She is not sure what PT can do for it or why she is here. Per pt. chart review: US completed course echotexture of liver and distention of common bile duct. Pt. symptom pattern description consistent with that of the referral patterns of the gall bladder and liver. Pt. must leave this appointment early to take her to his appointment for his eyes. When pt. was having severe pain a few weeks ago, she states that no movement or posture made her symptoms worse or better. Patient Goals: rule out MSK origin of concordant symptomsof cervical, thoracic, and lumbar spine Functional Limitations: Comments Functional Limitation Comments: Pt. reports no movement or posture creates the symptoms. Prior Level of Function: Independent without limitations Intake Information: Prescription present Previous Treatment: (Rx'd medications) Falls Interview: No positive findings with falls interview Red Flags Vertebral Fracture Red Flags: Age >70, Female Vertebral Fracture Clinical Reasoning: Proceed with caution due to the above (1- 2) risk factors Abdominal Aortic Aneurysm Red Flags: Age >60 Abdominal Aortic Aneurysm Clinical Reasoning: Proceed with caution Cancer Red Flags: Age >50 or <20 Cancer Clinical Reasoning: Proceed with caution Infection Clinical Reasoning: No identified risk factors. Cauda Equina Syndrome Clinical Reasoning: No identified risk factors. Cervical Arterial Dysfunction Clinical Reasoning: No identified risk factors Cervical Myelopathy: Age > 45 yo Cervical Myelopathy Diagnostic Rule: Proceed with caution Red Flags - Cervical Cancer Red Flags: Age >50 or <20 Cancer Clinical Reasoning: Proceed with caution Infection Clinical Reasoning: No identified risk factors. Cervical Arterial Dysfunction Clinical Reasoning: No identified risk factors Cervical Myelopathy: Age > 45 yo Cervical Myelopathy Diagnostic Rule: Proceed with caution Spine History Symptoms Location at Onset: (R flank and abdomen) Symptoms Since Onset: Improving Pain is Worse Always: No position Pain is Better Always: No position Sleep Affected by Pain: Not affected by pain Pain: Pain Pain Level: 0 Pain Location: Thoracic Spine - Right, Abdomen Description: Aching Frequency: Continuous Post Treatment Pain Post Treatment Pain Level: 0 Post Treatment Pain Location: Thoracic Spine - Right, Abdomen Post Treatment Symptoms: no concordant symptoms reproduced throughout viist PROMIS Scales T-scores: mean of general population = 50. 5 points is clinically meaningfully difference Percentiles provide an indication of how the patient's score ranks in relation to the general population. Higher percentile rankings indicate better function/quality of life. 50th percentile is the average of the general population and indicates half of respondents had a worse score. OBJECTIVE MEASURES WITH LEVEL OF FUNCTION: Posture / Alignment Posture: Forward head, Increased thoracic kyphosis Effects of Posture Correction: no concordant symptoms Sensation - Lumbar Sensation: Grossly Intact Lumbar Spine AROM Lumbar Flexion: Normal Lumbar Extension: Moderate limitation Lumbar R Side-Bend: Moderate limitation Lumbar L Side-Bend: Moderate limitation Lumbar R Rotation: Normal Lumbar L Rotation: Normal Lumbar Spine AROM Comments: no concordant symptoms grossly Sensation - Cervical Spine Cervical Spine Sensation: Grossly Intact Cervical Spine ROM Cervical ROM : Limitation AROM Cervical Protrusion AROM: Normal Cervical Retraction AROM: Moderate limitation Cervical Flexion AROM: Normal Cervical Extension AROM: Minimal limitation Cervical Side-Bend Right AROM: Moderate limitation Cervical Side-Bend Left AROM: Moderate limitation Cervical Rotation Right AROM: Normal Cervical Rotation Left AROM: Normal Upper Cervical AROM: (no concordant symptoms reproduced grossly) Thoracic Spine AROM Thoracic Flexion: Normal Thoracic Extension: Moderate limitation Thoracic Sidebend Right: Normal Thoracic Sidebend Left: Normal Thoracic Rotation Right: Normal Thoracic Rotation Left: Normal UE AROM R UE AROM: WFL- no concordant symptoms reproduced L UE AROM: no concordant symptoms reproduced Education: Education Learning Preferences: Demonstration, Explanation, Performance Barriers: None Learning/educational needs: Plan of Care, Posture Education Provided: Yes, see treatment interventions for education provided Education Provided To: Patient Education Mode/Type: Demonstration, Explanation/Discussion, Performance Response to Education/Teach Back: States/Identifies, Return Demonstration TREATMENT: PT Treatment Interventions: Self-Chcf Management Evaluation Self-Chcf Management: 1: provided pt. education with images: Pt. symptom pattern description consistent with that of the referral patterns of the gall bladder and liver. 2: discussed that symtpoms are are not reproduced, altered intensity, or relieved by movement or position are likely not MSK in nature. 3: postural education 4: PT offered lumbar and thoracic stabilization strengthening, pt. feels that she self manages chronic LBP herself well with an active lifestyle. Denies thoracic spine pain. Skilled Intervention: Reviewed patient specific diagnosis in relation to activities of daily living/home management. Activity progression based on professional judgement. Billing * Evaluation Low Complexity: 1 Unit Self-Care/Home Management Treatment Minutes: 10 Total Treatment Time Minutes (timed/untimed): 30 Kelsi Taylor PT [facility] NoteHNO ID: [id number] Author: Mily Krishnamurthy Service: ? Author Type: ? Type: Progress Notes Filed: 04/02/2023 12:26 PM Note Text: EVENT MONITOR DISPOSABLE PATCH INSTRUCTIONS Patient Name: Zenaida Evans Clinic Number: [id number] Skin prepped and cleansed with alcohol Patch secured to prepped area Monitor Activated Serial #: [id number] Patient Instructed: Prescribed order timeframe Bathing guidelines Usage of event button and diary documentation Return of monitor at the end of prescribed order Call with problems [phone] or [phone] ext. [phone] Patient expresses a good understanding of instructions [facility]06-16-[facility]23 NoteEducation (CARDMN) ZENAIDA EVANS ([id number]) 1935 F Date Time Provider Department 04/02/23 12:15 PM [facility]ITOR[facility] CARDMN Reason for Visit: Event [921] Cmt: ZIO PATCH Primary Visit Diagnosis:Palpitation [R00.2] During your visit today, we recorded the following information about you: Allergies As of Date: 04/02/2023 Noted Allergy Reaction SCOPOLAMINE 10/30/2011 1 - Mental Status Change Comments: Hallucinations AMLODIPINE 03/01/2020 14 - Other: See Comments Comments: Significant swelling even on 2.5 mg per day. HCTZ (THIAZIDES) 12/15/2019 15 - Contraindication-Medical [place]* Comments: Hyponatremia at 12.5 mg. HYDRALAZINE 08/12/2020 5 - Intolerance Comments: nausea IRON 09/03/2005 8 - GI Upset Comments: CAN TAKE SLO-IRON JARDIANCE (EMPAGLIFLOZIN) 11/20/2022 6 - Diarrhea LIPITOR (ATORVASTATIN) 11/09/2019 17 - Myalgia LOSARTAN 11/28/2019 14 - Other: See Comments Comments: BRIGHT with elevated potassium and creatinine. SPIRONOLACTONE 07/10/2020 5 - Intolerance Comments: Blood pressure went up TALWIN (PENTAZOCINE LACTATE) 09/30/2009 1 - Mental Status Change Comments: HALLUCINATIONS VERAPAMIL HCL 05/06/2016 8 - GI Upset Comments: constipation Date Reviewed: 04/02/2023 Reviewed by: Natalya Moreno MA - Fully Assessed Prescriptions as of 04/02/2023 - famotidine (PEPCID) 20 mg tablet Take 1 tablet by mouth once daily. - temazepam (RESTORIL) 7.5 mg capsule Take 1 capsule by mouth at bedtime as needed for up to 30 days. Do not take with tramadol. - predniSONE (DELTASONE) 10 mg tablet Take 4 tabs daily x 3 days, then 3 tabs x 3 days, 2 tabs x 3 days, then 1 tab x3 days with food. - ketoconazole (NIZORAL) 2 % shampoo Use to wash face and scalp two times a week. Lather and leave in for 3-5 minutes before rinsing. - furosemide (LASIX) 20 mg tablet Take 1 tablet by mouth every Wednesday,Wednesday,Wednesday (0600). - levothyroxine (SYNTHROID) 88 mcg tablet Take 1 tablet by mouth once daily. - cloNIDine TTS (CATAPRES-TTS) 0.1 mg/24 hr Apply 1 Patch as directed one time a week. - labetalol (TRANDATE) 200 mg tablet Take 1 tablet by mouth twice daily. - indapamide (LOZOL) 1.25 mg tablet Take 1 tablet by mouth once daily. - minoxidil (LONITEN) 2.5 mg tablet 1 tablet a day - Ferrous Sulfate (SLOW FE) 142 mg (45 mg iron) TbER Take 1 tablet by mouth two times a week. - MULTIVITAMIN ORAL Take 1 tablet by mouth once daily. - Melatonin 5 mg cap Take 1 capsule by mouth at bedtime as needed. - Cholecalciferol, Vitamin D3, 50 mcg (2,000 unit) cap Take 1 capsule by mouth once daily. - biotin 5 mg tab Take 5 mg by mouth once daily. Facility-Administered Medications as of 04/02/2023 - perflutren lipid microspheres 1.3 mL in NaCl (PF) 0.9% 10 mL injection (DEFINITY) - sodium chloride 0.9 % (flush) 10 mL (BD POSIFLUSH) Meds Comments as of 10/05/2022: Encounter Status:Closed by MILY KRISHNAMURTHY on 04/02/23[facility] 04-02-2023 NoteHNO ID: [id number] Author: Miah Taylor MD Service: ? Author Type: Physician Type: Procedures Filed: 05/05/2023 8:03 AM Note Text: Patient Name: Zenaida Evans : 1935 Ordering Provider: WILLIAM BAUTISTA Indication: R00.2 Palpitations Type of Monitor: Extended Monitoring-Zio Patch Enrollment Dates: 04/02/2023-04/16/2023 Patient had a min HR of 59 bpm, max HR of 182 bpm, and avg HR of 80 bpm. Predominant underlying rhythm was Sinus Rhythm. 25 Supraventricular Tachycardia runs occurred, the run with the fastest interval lasting 5 beats with a max rate of 182 bpm, the longest lasting 12 beats with an avg rate of 102 bpm. Some episodes of Supraventricular Tachycardia may be possible Atrial Tachycardia with variable block. Isolated SVEs were occasional (2.7%, 92465), SVE Couplets were rare (<1.0%, 133), and SVE Triplets were rare (<1.0%, 19). Isolated VEs were rare (<1.0%, 1631), VE Triplets were rare (<1.0%, 1), and no VE Couplets were present.[facility]06-16-2023 NoteHNO ID: [id number] Author: William Bautista MD Service: ? Author Type: Physician Type: Progress Notes Filed: 04/19/2023 11:45 AM Note Text: Heart [facility] Vascular [facility] SECTION OF HEART FAILURE and CARDIAC TRANSPLANT MEDICINE OUTPATIENT VISIT DATE April 02, 2023 OUTPATIENT VISIT TYPE Established Patient PRIMARY CARE PHYSICIAN: Miguelina Clemente [facility] [place] [address] CHIEF COMPLAINT: Feeling well NURSING INTAKE (Patient?s concerns and/or recent hospitalizations/ER visits): HF Nursing Assessment: Interim Hospitalizations and/or ER visits:no Chest Pain: no Skipping or irregular heartbeats: yes Shortness of breath at rest: no Shortness of breath with activity: a little Cough: a little Waking up in the middle of the night gasping for air: no Lightheadedness or dizziness: sometimes Feeling like you are going to pass out: no Actually passing out: no Poor energy level: fair Unintentional weight gain: no Unintentional weight loss: no Swelling in your legs,feet, abdomen: legs Filling up quickly when you eat: yes HISTORY OF PRESENT ILLNESS: 87 yo male with pmh of hypertension, CKD stage 3b, hypothyroidism, and HFpEF who presents for further evaluation of her HFpEF. She was diagnosed with HFpEF in 04/2020 when she presented to her senior programmer with peripheral edema requiring furosemide. Her ntprobnp had increased to 400 to > 1000. She did not understand the diagnosis at that time but after doing research, she set up an appointment with Dr. Alfred for further evaluation. Her probnp continued to be elevated despite the addition of diuretic. They discussed potential use of SGLT2i but wanted to discuss with her physicians first. Over the past 2-3 years, she has noticed increased dyspnea on exertion when going up inclines and stairs. She is able to go up a flight of stairs but then must catch her breath. She must stop half way up a hill due to shortness of breath. She has had labile hypertension since her 50's. She has had side effects to traditional BP medications and is now on a combination of labetalol and clonidine patch. She was trialed on ARB but there was a significant decrease in her eGFR. Renal duplex did not show any hemodynamic significant stenosis in either of the renal arteries. She currently reports better BP control at home with average SBP in 120-130's and DBP in the 70-80 range. However, her blood poressures are typically significantly elevated during her clinic visits. Since her last visit, she has remained stable. Better BP control. Denies any peripheral edema, orthopnea or Pnd. Palpitations and nausea episodes that are sporadic. PAST MEDICAL HISTORY Diagnosis Date Breast cancer (HCC) 09/[address] Wood right ER positive s/p surgery/radiation and AI Collagenous colitis 07/30/2017 On biopsy 2012. Diarrhea hx of colitis Diffuse cystic mastopathy Dyspareunia Essential hypertension H/O complete eye exam 03/13/2011 no retinopathy detected -both eyes - [facility] - return in 1 year - Dr. Ruby hair thinning sees Dr Choudhary Hormone replacement therapy (HRT) 1974-present stopped by 09/2011 hx of low vitamin D treated 08/2007 20.4 recheck only 23 9/08 improved to 54 PMH - PAST MEDICAL HISTORY OF cardiac arrhythmia- resolved with change in medication Stage 3 chronic kidney disease ([facility]) 11/22/2019 Symptomatic states associated with artificial menopause 1974 THBSO for fibroids age 40 Vaginal atrophy 08/2015 offered vag DHEA Vaginismus for PT PAST SURGICAL HISTORY Procedure Laterality Date APPENDECTOMY BREAST BIOPSY CORE 04/16/2009 right breast stereo core biopsy BX BREAST NEEDLE CORE W/O IMAGING GUIDANCE SPX 04/02/2008 right breast stereo core biopsy BX/EXC LYMPH NODE OPEN DEEP AXILLARY NODE 10/30/2011 Right NL PM/SLNs CATARACT EXTRACTION HX Bilateral 09/04, 12/06 COLONOSCOPY FLX DX W/COLLJ SPEC WHEN PFRMD 09/08/2013 Colonoscopy MASTECTOMY, PARTIAL Right 10/30/2011 Right NL PM/SLNs PAST SURGICAL HISTORY OF bilat vein stripping PAST SURGICAL HISTORY OF Left 1990 left breast Atypical hyperplasia PAST SURGICAL HISTORY OF excision skin cancer TOTAL ABDOMINAL HYSTERECT W/WO RMVL TUBE OVARY early 1969' Hysterectomy, CAROL, due to fibroids. SOCIAL HISTORY Social History Tobacco Use Smoking status: Former Packs/day: 1.00 Years: 12.00 Pack years: 12.00 Types: Cigarettes Quit date: 01/19/1967 Years since quittin.2 Smokeless tobacco: Never Vaping Use Vaping Use: Never used Substance Use Topics Alcohol use: Yes Alcohol/week: 5.0 - 7.0 standard drinks Types: 5 - 7 Glasses of Wine (5oz) per week Drug use: No FAMILY HISTORY Problem Relation Age of Onset Alzheimer's Disease Mother hypertension/stroke d89 Hypertension Mother Stroke Mother Heart Father heart fail (more content not included)...[facility]06-16-2023 History of Present illness Narrative* Mily Krishnamurthy - 04/02/2023 12:26 PM EDT EVENT MONITOR DISPOSABLE PATCH INSTRUCTIONS Patient Name: Zenaida Evans [facility] Number: [id number] Skin prepped and cleansed with alcohol Patch secured to prepped area Monitor Activated Serial #: [id number] Patient Instructed: Prescribed order timeframe Bathing guidelines Usage of event button and diary documentation Return of monitor at the end of prescribed order Call with problems [phone] or [phone]. [phone] Patient expresses a good understanding of instructions Mily Krishnamurthy [facility] NoteHNO ID: [id number] Author: Kelsi Ortez RDMS Service: ? Author Type: Proposal Manager Type: Progress Notes Filed: 04/01/2023 10:13 AM Note Text: Radiology Service Progress Note PATIENT NAME: Zenaida Evans DATE OF SERVICE: April 01, 2023 TIME: 10:12 AM PATIENT IDENTITY VERIFICATION COMPLETED USING TWO (2) IDENTIFIERS: Name and Date of confirmed by patient verbally. FALL SCREENING: Has the patient had 2 falls in the last year or 1 fall with injury or currently using an Ambulatory Assistive Device (Walker, Cane, Wheelchair, Crutches, etc.)? No PATIENT GENDER DATA: Female. status: : No status: NO. PATIENT RELEVANT IMPLANT DATA REVIEWED: Not Applicable RADIOLOGY DEPARTMENT: Ultrasound PERIPHERAL IV DATA: Not applicable SIGNED BY: Kelsi Ortez RDMS RVT April 01, 2023 10:12 [facility]06-15-2023 History of Present illness Narrative* Kelsi Ortez RDMS - 04/01/2023 9:15 AM EDT Radiology Service Progress Note PATIENT NAME: Zenaida Evans DATE OF SERVICE: April 01, 2023 TIME: 10:12 AM PATIENT IDENTITY VERIFICATION COMPLETED USING TWO (2) IDENTIFIERS: Name and Date of confirmedby patient verbally. FALL SCREENING: Has the patient had 2 falls in the last year or 1 fall with injury or currently using an Ambulatory Assistive Device (Walker, Cane, Wheelchair, Crutches, etc.)? No PATIENT GENDER DATA: Female. status: : No status: NO. PATIENT RELEVANT IMPLANT DATA REVIEWED: Not Applicable RADIOLOGY DEPARTMENT: Ultrasound PERIPHERAL IV DATA: Not applicable SIGNED BY: Kelsi Ortez RDMS RVT April 01, 2023 10:12 AM documented in this encounterMer[facility]-2023 NoteHNO ID: [id number] Author: Miguelina Clemente MD Service: ? Author Type: Physician Type: Progress Notes Filed: 03/23/2023 5:47 PM Note Text: Patient presents with: Follow Up Didn't want to take too much tramadol. States taking more ibuprofen. Not sure where the back pain came from. Didn't do physical therapy. 2 wks ago pain was 7/10, now about a 4/10. BP 130/62 Pulse 75 Temp 36.8 ?C (98.2 ?F) (Oral) Ht 167.6 cm (5' 6 ) Wt 59.4 kg (131 lb) SpO2 96% BMI 21.14 kg/m? Right back. No evidence of rash. Reports tenderness from the neck down to the bottom of the last rib on the right. Laterally, posteriorly. Lungs clear to auscultation bilaterally. Cardiovascular regular rate and rhythm without murmurs rubs or gallops. ASSESSMENT/PLAN: 1. Rib pain on right side - ICD9: 786.50, ICD10: R07.81 (primary diagnosis) Atypical chest pain, symptoms are not consistent with cardiac ischemia due to nonexertional nature of symptom, accompanying GI symptoms, and localization of the pain possible etiology include musculoskeletal and also referred pain from gallbladder. Patient has significant scoliosis and kyphosis, and I recommend physical therapy evaluation. - CONSULT FOR ACUPUNCTURE 2. Epigastric abdominal tenderness without rebound tenderness - ICD9: 789.66, ICD10: R10.816 Reviewed prior EGD benign in 2020. Recommend start famotidine. Patient reports no benefit from Prilosec in the past. - FAMOTIDINE 20 MG TABLET - US ABD RIGHT UPPER QUADRANT 3. Thoracogenic scoliosis, unspecified spinal region - ICD9: 737.34, ICD10: M41.30 Recommend proceed with PT. If without improvement can try acupuncture. - CONSULT FOR ACUPUNCTURE Return if symptoms worsen or fail to improve. Miguelina Clemente, [facility]06-06-2023 History of Present illness Narrative* Miguelina Clemente MD - 03/23/2023 4:56 PM EDT Patient presents with: Follow Up Didn't want to take too much tramadol. States taking more ibuprofen. Not sure where the back pain came from. Didn't do physical therapy. 2 wks ago pain was 7/10, now about a 4/10. BP 130/62 Pulse 75 Temp 36.8 C (98.2 F) (Oral) Ht 167.6 cm (5' 6 ) Wt 59.4 kg (131 lb) SpO2 96% BMI 21.14 kg/m Right back. No evidence of rash. Reports tenderness from the neck down to the bottom of the last rib on the right. Laterally, posteriorly. Lungs clear to auscultation bilaterally. Cardiovascular regular rate and rhythm without murmurs rubs or gallops. ASSESSMENT/PLAN: 1. Rib pain on right side - ICD9: 786.50, ICD10: R07.81 (primary diagnosis) Atypical chest pain, symptoms are not consistent with cardiac ischemia due to nonexertional nature of symptom, accompanying GI symptoms, and localization of the pain possible etiology include musculoskeletal and also referred pain from gallbladder. Patient has significant scoliosis and kyphosis, and I recommend physical therapy evaluation. - CONSULT FOR ACUPUNCTURE 2. Epigastric abdominal tenderness without rebound tenderness - ICD9: 789.66, ICD10: R10.816 Reviewed prior EGD benign in 2020. Recommend start famotidine. Patient reports no benefit from Prilosec in the past. - FAMOTIDINE 20 MG TABLET - US ABD RIGHT UPPER QUADRANT 3. Thoracogenic scoliosis, unspecified spinal region - ICD9: 737.34, ICD10: M41.30 Recommend proceed with PT. If without improvement can try acupuncture. - CONSULT FOR ACUPUNCTURE Return if symptoms worsen or fail to improve. Miguelina Clemente MD documented in this encounterMer[facility]05-22-2023 NoteHNO ID: [id number] Author: RT Hema(R) Service: ? Author Type: Catering Sales Manager Type: Progress Notes Filed: 03/08/2023 1:07 PM Note Text: Radiology Service Progress Note PATIENT NAME: Zenaida Evans DATE OF SERVICE: March 08, 2023 TIME: 12:47 PM PATIENT IDENTITY VERIFICATION COMPLETED USING TWO (2) IDENTIFIERS: Name and Date of confirmed by patient verbally. FALL SCREENING: Has the patient had 2 falls in the last year or 1 fall with injury or currently using an Ambulatory Assistive Device (Walker, Cane, Wheelchair, Crutches, etc.)? No PATIENT GENDER DATA: Female. status: : No status: NO. PATIENT RELEVANT IMPLANT DATA REVIEWED: Yes RADIOLOGY DEPARTMENT: General X-ray: Exam(s) Completed: Rib X-Ray: Right Spine X-Ray(s): Thoracic PERIPHERAL IV DATA: Not applicable SIGNED BY: RT Hema(R) March 08, 2023 12:47 [facility]05-22-2023 NoteHNO ID: [id number] Author: Miguelina Clemente MD Service: ? Author Type: Physician Type: Progress Notes Filed: 03/08/2023 12:10 PM Note Text: DISTANCE HEALTH VISIT This Team Access Model visit is a virtual encounter. It required patient-provider interaction for the medical decision making as documented below. Patient well known to me. Confirmed name and history. PDMP website checked and validated. All prescriptions have been APPROPRIATELY filled. No suspicious activity was identified. 03/08/2023 by Miguelina Clemente MD Zenaida Evans is a 87 year old female seen for back pain. Severe pain in the upper back on the right side for 7-10 days. Came into urgent care on . Was given a prescription for prednisone. Had some tramadol left over from a previous event and had a few temazepam. Didn't fall or lift anything heavy. Not even gardening. Started 1 week ago . Admits the pain wraps around. Denies rash such as shingles. No shortness of breath or pain upon breathing. Temp 95 (low). No cough or cold symptoms. Had some nausea when it started. 03/27 without tramadol. With tramadol it eases. Aleve doesn't touch it. No change with steroid. Blood pressure 177/88 and 165/95. High on when came in. HISTORY REVIEWED (electronic chart updated): - medical history - medications - allergies REVIEW OF SYSTEMS: As noted in HPI PHYSICAL EXAMINATION: VIDEO EXAM: (if done, performed via video enabled technology) GENERAL: alert and appropriate, in no distress, well-hydrated, well nourished, appears anxious, and thin RESPIRATORY: breathing non-labored ASSESSMENT/PLAN: 1. Acute right-sided thoracic back pain - ICD9: 724.1, ICD10: M54.6 Unclear etiology. No signs of deeper lung issues. Refilled pain medication. Knows not to use with sleep aid. Complete steroid - XR THORACIC GENERAL 3V AP/LAT/SWIMMERS - TRAMADOL 50 MG TABLET - CONSULT TO PHYSICAL THERAPY - TEMAZEPAM 7.5 MG CAPSULE - XR RIBS/CHEST 3V AP RIB/OBLS/CXR RIGHT Miguelina Clemente, [facility]05-22-2023 Miscellaneous Notes* Telephone Encounter - Sally Ha RN - 03/08/2023 8:22 AM EDT Patient calling in with moderate back pain, still after EC gave steroid. Asking for appointment with Dr. Clemente today. VV scheduled. Reason for Disposition [1] MODERATE back pain (e.g., interferes with normal activities) AND [2] present > 3 days Answer Assessment - Initial Assessment Questions 1. ONSET: When did the pain begin? Over a week ago 2. LOCATION: Where does it hurt? (upper, mid or lower back) Right upper back 3. SEVERITY: How bad is the pain? (e.g., Scale 1-10; mild, moderate, or severe) - MILD (1-3): doesn't interfere with normal activities - MODERATE (4-7): interferes with normal activities or awakens from sleep - SEVERE (8-10): excruciating pain, unable to do any normal activities 6 or 7 4. PATTERN: Is the pain constant? (e.g., yes, no; constant, intermittent) constant 5. RADIATION: Does the pain shoot into your legs or elsewhere? denies 6. CAUSE: What do you think is causing the back pain? unknown 7. BACK OVERUSE: Any recent lifting of heavy objects, strenuous work or exercise? denies 8. MEDICATIONS: What have you taken so far for the pain? (e.g., nothing, acetaminophen, NSAIDS) She was desperate and took a tramadol that she had left over. 9. NEUROLOGIC SYMPTOMS: Do you have any weakness, numbness, or problems with bowel/bladder control? denies 10. OTHER SYMPTOMS: Do you have any other symptoms? (e.g., fever, abdominal pain, burning with urination, blood in urine) denies 11. : Is there any chance you are ? (e.g., yes, no; LMP) N/a Protocols used: Back [id number] documented in this encounterMercy [facility]05-18-2023 NoteHNO ID: [id number] Author: Richard Contreras APRN.DRAIN CLEANER PLUMBER Service: ? Author Type: Nurse Practitioner Type: Progress Notes Filed: 03/04/2023 12:08 PM Note Text: This note was created using Solar Titanriter. Subjective Zenaida Evans is a 87 year old female. Back Pain Pertinent negatives include no abdominal pain and no dysuria. 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 Patient states over the past 6 days she has had persistent left upper back pain with radiation to the left lower back. Patient denies any injuries trauma or falls. Patient states she has been sitting in front of her computer however does not feel she has been doing this for an excessive amount of time. Patient denies any numbness or tingling. Patient states pain is worse when moving and is worse in the morning and at night. Patient states she has been using Tylenol for discomfort which has been helping minimally. Patient denies any chest pain, shortness of breath difficulty breathing, coughing, palpitations, syncope, lightheadedness, dizziness, abdominal pain, vomiting, diarrhea or constipation. Patient does complain of intermittent nausea without any fever, shaking, or chills. Review of Systems Constitutional: Negative. HENT: Negative. Respiratory: Negative. Cardiovascular: Negative. Gastrointestinal: Negative for abdominal pain. Genitourinary: Negative for dysuria, frequency, hematuria and urgency. Musculoskeletal: Positive for back pain. Negative for gait problem. Skin: Negative. Objective BP 190/91 Pulse 65 Temp 36.3 ?C (97.3 ?F) Resp 16 Wt 61.9 kg (136 lb 8 oz) SpO2 100% BMI 22.03 kg/m? Physical Exam Vitals and nursing note reviewed. Constitutional: General: She is not in acute distress. Appearance: Normal appearance. She is not ill-appearing, toxic-appearing or diaphoretic. HENT: Head: Normocephalic. Eyes: Pupils: Pupils are equal, round, and reactive to light. Cardiovascular: Rate and Rhythm: Normal rate and regular rhythm. Pulses: Normal pulses. Heart sounds: Normal heart sounds. No murmur heard. No friction rub. No gallop. Pulmonary: Effort: Pulmonary effort is normal. No respiratory distress. Breath sounds: Normal breath sounds. No stridor. No wheezing, rhonchi or rales. Chest: Chest wall: No tenderness. Musculoskeletal: General: Tenderness present. No swelling, deformity or signs of injury. Normal range of motion. Cervical back: Normal range of motion and neck supple. Right lower leg: No edema. Left lower leg: No edema. Skin: General: Skin is warm and dry. Capillary Refill: Capillary refill takes less than 2 seconds. Neurological: General: No focal deficit present. Mental Status: She is alert and oriented to person, place, and time. Assessment and Plan Given patient's clear presentation thorough exam was performed. Patient does have reproducible tenderness on palpation to the right thoracic and lumbar back with no midline cervical, thoracic or lumbar spinal tenderness, crepitus, step-offs upon palpation, no adventitious lung sounds auscultated, speaking complete sentences no respiratory distress, cardiac is auscultated are regular, denies any loss of bowel or bladder control, independently ambulatory without any difficulty, remains hemodynamically stable during office evaluation, is afebrile, I have a low suspicion for ACS, pulmonary embolism, aortic abdominal aneurysm, cervica, thoracic or lumbar spinal compromise, epidural abscess, cauda equina syndrome. Given patient's complaints and presentation I do suspect patient is likely experiencing musculoskeletal strain. Patient received prescription for prednisone and encouraged monitoring symptoms, if they become worse go to emergency room for further evaluation, otherwise follow-up primary care provider as needed. Patient was agreeable this plan and discharged home in stable condition. Richard Contreras APRN.URMILA This note was partially generated using Openbucks recognition system. [facility]05-09-2023 Miscellaneous Notes* Telephone Encounter - Tara Orona MA - 02/23/2023 10:23 AM EDT Gave message to patient, expressed understanding Mailed to patient * Telephone Encounter - Miguelina Clemente MD - 02/23/2023 10:05 AM EDT Order printed in my outbox. documented in this encounterMer[facility]05-04-2023 NoteHNO ID: [id number] Author: Allie Choudhary MD Service: ? Author Type: Physician Type: Progress Notes Filed: 03/03/2023 2:51 PM Note Text: LV: 05/14/2022 Established patient CC: TE/[facility] derm Zenaida Evans is a 87 year old female here to follow up on her TE/[facility] derm Absolute white hair, grayed early now responding LDOM with increased density and is very satisfied Would like some age spots removed on face, denies bleeding - hair is improved -does see less shedding than previous visits - denies itching or pain on scalp - thyroid within normal limits. Following with Dr. Pena in endocrinology - off of anastrozole for breast cancer. Has not taken for a couple years -on oral minoxidil 2.5 mg/day - started 09/26/20, decreased to 1.25 mg daily after last appointment (01/02/21) -Notes growing facial hair Current tx: - oral minoxidil 1.25 mg daily - Vitamin D3 2,000 units daily - Biotin forte 3 mg once daily - ketoconazole shampoo twice a week - MVI - iron supplement Past tx: - aldactone - premarin stopped after breast ca diagnosis -rogaine 5% every other day (pruritic)stopped 08/17/20 - Hairmax 2-3 times per week (stopped 09/2020) -Stopped HANDS shampoo due to increased pruritis PAST MEDICAL HISTORY Diagnosis Date Breast cancer (HCC) 09/[address] Wood right ER positive s/p surgery/radiation and AI Collagenous colitis 07/30/2017 On biopsy 2012. Diarrhea hx of colitis Diffuse cystic mastopathy Dyspareunia Essential hypertension H/O complete eye exam 03/13/2011 no retinopathy detected -both eyes - [place] [facility] - return in 1 year - Dr. Ruby hair thinning sees Dr Choudhary Hormone replacement therapy (HRT) 1974-present stopped by 09/2011 hx of low vitamin D treated 08/2007 20.4 recheck only 23 9/ improved to 54 PMH - PAST MEDICAL HISTORY OF cardiac arrhythmia- resolved with change in medication Stage 3 chronic kidney disease (HCC) 11/22/2019 Symptomatic states associated with artificial menopause 1974 THBSO for fibroids age 40 Vaginal atrophy 08/2015 offered vag DHEA Vaginismus for PT PSH: Hysterectomy - remotely - 30-40 y/ago Breast cancer Current Outpatient Medications Medication Sig Dispense Refill predniSONE (DELTASONE) 10 mg tablet Take 4 tabs daily for 3 days, then 2 tabs daily for 3 days, then 1 tab daily for 3 days with food. 21 tablet 0 furosemide (LASIX) 20 mg tablet Take 1 tablet by mouth every Wednesday,Wednesday,Wednesday (0600). 36 tablet 3 levothyroxine (SYNTHROID) 88 mcg tablet Take 1 tablet by mouth once daily. 90 tablet 1 cloNIDine TTS (CATAPRES-TTS) 0.1 mg/24 hr Apply 1 Patch as directed one time a week. 12 Patch 3 labetalol (TRANDATE) 200 mg tablet Take 1 tablet by mouth twice daily. 180 tablet 3 indapamide (LOZOL) 1.25 mg tablet Take 1 tablet by mouth once daily. 90 tablet 3 minoxidil (LONITEN) 2.5 mg tablet 1 tablet a day 90 tablet 3 ketoconazole (NIZORAL) 2 % shampoo Use to wash face and scalp two times a week. Lather and leave in for 3-5 minutes before rinsing. 240 mL 11 Ferrous Sulfate (SLOW FE) 142 mg (45 mg iron) TbER Take 1 tablet by mouth two times a week. MULTIVITAMIN ORAL Take 1 tablet by mouth once daily. Melatonin 5 mg cap Take 1 capsule by mouth at bedtime as needed. Cholecalciferol, Vitamin D3, 50 mcg (2,000 unit) cap Take 1 capsule by mouth once daily. biotin 5 mg tab Take 5 mg by mouth once daily. Current Facility-Administered Medications Medication Dose Route Frequency Provider Last Rate Last Admin perflutren lipid microspheres 1.3 mL in NaCl (PF) 0.9% 10 mL injection (DEFINITY) INTRAVENOUS DIRECTED PRN Melo Arango, APPLICATION SUPPORT TECHNICIAN.[employer] sodium chloride 0.9 % (flush) 10 mL (BD POSIFLUSH) 10 mL INTRAVENOUS DIRECTED PRN Melo Arango APPLICATION SUPPORT TECHNICIAN.[employer] Component Latest Ref Rng AND Units 08/12/2020 Protein, Total 6.3 - 8.0 g/dL 6.3 Albumin 3.9 - 4.9 g/dL 4.0 Calcium 8.5 - 10.2 mg/dL 9.3 Bilirubin, Total 0.2 - 1.3 mg/dL 0.4 Alkaline Phosphatase 34 - 123 U/L 70 AST 13 - 35 U/L 19 Glucose 74 - 99 mg/dL 91 BUN 7 - 21 mg/dL 30 (H) Creatinine 0.58 - 0.96 mg/dL 1.29 (H) Sodium 136 - 144 mmol/L 142 Potassium 3.7 - 5.1 mmol/L 4.6 Chloride 97 - 105 mmol/L 106 (H) CO2 22 - 30 mmol/L 28 Anion Gap 9 - 18 mmol/L 8 (L) ALT 7 - 38 U/L 18 eGFR- 48 eGFR-All Other Races . 39 Component Latest Ref Rng AND Units 01/08/2023 WBC 3.70 - 11.00 k/uL 4.28 RBC 3.90 - 5.20 m/uL 3.80 (L) Hemoglobin 11.5 - 15.5 g/dL 12.3 Hematocrit 36.0 - 46.0 % 35.8 (L) MCV 80.0 - 100.0 fL 94.2 MCH 26.0 - 34.0 pg 32.4 MCHC 30.5 - 36.0 g/dL 34.4 RDW-CV 11.5 - 15.0 % 13.2 Platelet Count 150 - 400 k/uL 181 MPV 9.0 - 12.7 fL 9.8 Neut% % 43.9 Abs Neut (ANC) 1.45 - 7.50 k/uL 1.88 Lymph% % 42.3 Abs Lymph 1.00 - 4.00 k/uL 1.81 [place]% % 9.6 Abs [place] <0.87 k/uL 0.41 Eosin% % 3.3 Abs Eosin <0.46 k/uL 0.14 Baso% % 0.7 Abs Baso <0.11 k/uL 0.03 Immature Gran % % 0.2 IM (more content not included)...[facility]04-15-2023 NoteHNO ID: [id number] Author: Kelsi Colby APRN.[employer] Service: ? Author Type: Nurse Practitioner Type: Progress Notes Filed: 01/30/2023 10:04 AM Note Text: This note was created using NoteWriter. Subjective Zenaida Evans is a 87 year old female. 87 year old female with PMH Acute onset around 0300. States she took half a sleeping pill, citing that she cut it in half. Endorses initially she could feel the pill, Has used warm water. Has used crackers. Denies that she experienced a choking episode Denies N/V Denies LOC. Denies feelings of FB Just feels sore now Denies inability to handle secretions. The history is provided by the patient. No english language arts teacher was used. Sore Throat This is a new problem. The current episode started today. The problem has been unchanged. Neither side of throat is experiencing more pain than the other. There has been no fever. The pain is at a severity of 4/10. The pain is mild. Pertinent negatives include no abdominal pain, congestion, coughing, diarrhea, drooling, ear discharge, ear pain, headaches, hoarse voice, plugged ear sensation, neck pain, shortness of breath, stridor, swollen glands, trouble swallowing or vomiting. She has had no exposure to strep or mono. Treatments tried: warm water. The treatment provided mild relief. PAST MEDICAL HISTORY Diagnosis Date Breast cancer (HCC) 09/[address] Wood right ER positive s/p surgery/radiation and AI Collagenous colitis 07/30/2017 On biopsy 2012. Diarrhea hx of colitis Diffuse cystic mastopathy Dyspareunia Essential hypertension H/O complete eye exam 03/13/2011 no retinopathy detected -both eyes - [facility] [place] - return in 1 year - Dr. Ruby hair thinning sees Dr Choudhary Hormone replacement therapy (HRT) 1974-present stopped by 09/2011 hx of low vitamin D treated 08/2007 20.4 recheck only 23 9/08 improved to 54 PMH - PAST MEDICAL HISTORY OF cardiac arrhythmia- resolved with change in medication Stage 3 chronic kidney disease (HCC) 11/22/2019 Symptomatic states associated with artificial menopause 1974 THBSO for fibroids age 40 Vaginal atrophy 08/2015 offered vag DHEA Vaginismus for PT PAST SURGICAL HISTORY Procedure Laterality Date APPENDECTOMY BREAST BIOPSY CORE 04/16/2009 right breast stereo core biopsy BX BREAST NEEDLE CORE W/O IMAGING GUIDANCE SPX 04/02/2008 right breast stereo core biopsy BX/EXC LYMPH NODE OPEN DEEP AXILLARY NODE 10/30/2011 Right NL PM/SLNs CATARACT EXTRACTION HX Bilateral 09/04, 12/06 COLONOSCOPY FLX DX W/COLLJ SPEC WHEN PFRMD 09/08/2013 Colonoscopy MASTECTOMY, PARTIAL Right 10/30/2011 Right NL PM/SLNs PAST SURGICAL HISTORY OF bilat vein stripping PAST SURGICAL HISTORY OF Left 1991 left breast Atypical hyperplasia PAST SURGICAL HISTORY OF excision skin cancer TOTAL ABDOMINAL HYSTERECT W/WO RMVL TUBE OVARY early 1970's Hysterectomy, CAROL, due to fibroids. ALLERGIES Scopolamine, Amlodipine, Hctz [Thiazides], Hydralazine, Iron, Jardiance [Empagliflozin], Lipitor [Atorvastatin], Losartan, Spironolactone, Talwin [Pentazocine Lactate], and Verapamil Hcl MEDICATIONS furosemide (LASIX) 20 mg tabletTake 1 tablet by mouth every Wednesday,Wednesday,Wednesday (0600).Disp: 36 tabletRfl: 3 cloNIDine TTS (CATAPRES-TTS) 0.1 mg/24 hrApply 1 Patch as directed one time a week.Disp: 12 PatchRfl: 3 labetalol (TRANDATE) 200 mg tabletTake 1 tablet by mouth twice daily.Disp: 180 tabletRfl: 3 indapamide (LOZOL) 1.25 mg tabletTake 1 tablet by mouth once daily.Disp: 90 tabletRfl: 3 minoxidil (LONITEN) 2.5 mg tablet1 tablet a dayDisp: 90 tabletRfl: 3 ketoconazole (NIZORAL) 2 % shampooUse to wash face and scalp two times a week. Lather and leave in for 3-5 minutes before rinsing.Disp: 240 mLRfl: 11 Ferrous Sulfate (SLOW FE) 142 mg (45 mg iron) TbERTake 1 tablet by mouth two times a week.Disp: Rfl: MULTIVITAMIN ORALTake 1 tablet by mouth once daily.Disp: Rfl: Melatonin 5 mg capTake 1 capsule by mouth at bedtime as needed.Disp: Rfl: Cholecalciferol, Vitamin D3, 50 mcg (2,000 unit) capTake 1 capsule by mouth once daily.Disp: Rfl: biotin 5 mg tabTake 5 mg by mouth once daily.Disp: Rfl: predniSONE (DELTASONE) 10 mg tabletTake 4 tabs daily for 3 days, then 2 tabs daily for 3 days, then 1 tab daily for 3 days with food.Disp: 21 tabletRfl: 0 doxycycline (VIBRA-TABS) 100 mg tabletTake 1 tablet by mouth twice daily for 10 days.Disp: 20 tabletRfl: 0 levothyroxine (SYNTHROID) 88 mcg tabletTake 1 tablet by mouth once daily.Disp: 90 tabletRfl: 1 FAMILY HISTORY Problem Relation Age of Onset Alzheimer's Disease Mother hypertension/stroke d89 Hypertension Mother Stroke Mother Heart Father heart failure, d 72 other (emphseyma) Sister d 59 other (healthy) Daughter other (healthy) Daughter other (healthy) Son Breast Cancer Maternal Aunt Social History Tobacco Use Smoking status: Former Packs (more content not included)...[facility]04-15-2023 History of Present illness Narrative* Kelsi Colby APRN.[facility] - 01/30/2023 9:53 AM EDT This note was created using NoteWriter. Subjective Zenaida Evans is a 87 year old female. 87 year old female with PMH Acute onset around 0300. States she took half a sleeping pill, citing that she cut it in half. Endorses initially she could feel the pill, Has used warm water. Has used crackers. Denies that she experienced a choking episode Denies N/V Denies LOC. Denies feelings of FB Just feels sore now Denies inability to handle secretions. The history is provided by the patient. No english language arts teacher was used. Sore Throat This is a new problem. The current episode started today. The problem has been unchanged. Neither side of throat is experiencing more pain than the other. There has been no fever. The pain is at a severity of 4/10. The pain is mild. Pertinent negatives include no abdominal pain, congestion, coughing, diarrhea, drooling, ear discharge, ear pain, headaches, hoarse voice, plugged ear sensation, neckpain, shortness of breath, stridor, swollen glands, trouble swallowing or vomiting. She has had no exposure to strep or mono. Treatments tried: warm water. The treatment provided mild relief. PAST MEDICAL HISTORY Diagnosis Date Breast cancer (HCC) 09/[address] Nina moraes ER positive s/p surgery/radiation and AI Collagenous colitis 07/30/2017 On biopsy 2012. Diarrhea hx of colitis Diffuse cystic mastopathy Dyspareunia Essential hypertension H/O complete eye exam 03/13/2011 no retinopathy detected -both eyes - [facility] [place] - return in 1 year - Dr. Ruby hair thinning sees Dr Choudhary Hormone replacement therapy (HRT) 1974-present stopped by 09/2011 hx of low vitamin D treated 08/2007 20.4 recheck only 23 / improved to 54 PMH - PAST MEDICAL HISTORY OF cardiac arrhythmia- resolved with change in medication Stage 3 chronic kidney disease (HCC) 11/22/2019 Symptomatic states associated with artificial menopause 1974 THBSO for fibroids age 40 Vaginal atrophy 08/2015 offered vag DHEA Vaginismus for PT PAST SURGICAL HISTORY Procedure Laterality Date APPENDECTOMY BREAST BIOPSY CORE 04/16/2009 right breast stereo core biopsy BX BREAST NEEDLE CORE W/O IMAGING GUIDANCE SPX 04/02/2008 right breast stereo core biopsy BX/EXC LYMPH NODE OPEN DEEP AXILLARY NODE 10/30/2011 Right NL PM/SLNs CATARACT EXTRACTION HX Bilateral 09/04, 12/06 COLONOSCOPY FLX DX W/COLLJ SPEC WHEN PFRMD 09/08/2013 Colonoscopy MASTECTOMY, PARTIAL Right 10/30/2011 Right NL PM/SLNs PAST SURGICAL HISTORY OF bilat vein stripping PAST SURGICAL HISTORY OF Left 1991 left breast Atypical hyperplasia PAST SURGICAL HISTORY OF excision skin cancer TOTAL ABDOMINAL HYSTERECT W/WO RMVL TUBE OVARY early 1970's Hysterectomy, CAROL, due to fibroids. ALLERGIES Scopolamine, Amlodipine, Hctz [Thiazides], Hydralazine, Iron, Jardiance [Empagliflozin], Lipitor [Atorvastatin], Losartan, Spironolactone, Talwin [Pentazocine Lactate], and Verapamil Hcl MEDICATIONS furosemide (LASIX) 20 mg tablet^Take 1 tablet by mouth every Wednesday,Wednesday,Wednesday (0600).^Disp: 36 tablet^Rfl: 3 cloNIDine TTS (CATAPRES-TTS) 0.1 mg/24 hr^Apply 1 Patch as directed one time a week.^Disp: 12 Patch^Rfl: 3 labetalol (TRANDATE) 200 mg tablet^Take 1 tablet by mouth twice daily.^Disp: 180 tablet^Rfl: 3 indapamide (LOZOL) 1.25 mg tablet^Take 1 tablet by mouth once daily.^Disp: 90 tablet^Rfl: 3 minoxidil (LONITEN) 2.5 mg tablet^1 tablet a day^Disp: 90 tablet^Rfl: 3 ketoconazole (NIZORAL) 2 % shampoo^Use to wash face and scalp two times a week. Lather and leave infor 3-5 minutes before rinsing.^Disp: 240 mL^Rfl: 11 Ferrous Sulfate (SLOW FE) 142 mg (45 mg iron) TbER^Take 1 tablet by mouth two times a week.^Disp: ^Rfl: MULTIVITAMIN ORAL^Take 1 tablet by mouth once daily.^Disp: ^Rfl: Melatonin 5 mg cap^Take 1 capsule by mouth at bedtime as needed.^Disp: ^Rfl: Cholecalciferol, Vitamin D3, 50 mcg (2,000 unit) cap^Take 1 capsule by mouth once daily.^Disp: ^Rfl: biotin 5 mg tab^Take 5 mg by mouth once daily.^Disp: ^Rfl: predniSONE (DELTASONE) 10 mg tablet^Take 4 tabs daily for 3 days, then 2 tabs daily for 3 days, then 1 tab daily for 3 days with food.^Disp: 21 tablet^Rfl: 0 doxycycline (VIBRA-TABS) 100 mg tablet^Take 1 tablet by mouth twice daily for 10 days.^Disp: 20 tablet^Rfl: 0 levothyroxine (SYNTHROID) 88 mcg tablet^Take 1 tablet by mouth once daily.^Disp: 90 tablet^Rfl: 1 FAMILY HISTORY Problem Relation Age of Onset Alzheimer's Disease Mother hypertension/stroke d89 Hypertension Mother Stroke Mother Heart Father heart failure, d 72 other (emphseyma) Sister d 59 other (healthy) Daughter other (healthy) Daughter other (healthy) Son Breast Cancer Maternal Aunt Social History Tobacco Use Smoking status: Former Packs/day: 1.00 Years: 12.00 Pack years: 12.00 Types: Cigarettes Quit date: 01/19/1967 Years since quittin.0 Smokeless tobacco: Never Vaping Use Vaping Use: Never used Substance Use Topics Alcohol use: Yes Alcohol/week: 5.0 - 7.0 standard drinks Types: 5 - 7 Glasses of Wine (5oz) per week Drug use: No Review of Systems Constitutional: Negative for activity change, appetite change, chills, diaphoresis and fatigue. HENT: Positive for sore throat. Negative for congestion, drooling, ear discharge, ear pain, hoarse voice and trouble swallowing. Eyes: Negative for pain, discharge, redness and itching. Respiratory: Negative for apnea, cough, chest tightness, shortness of breath and stridor. Cardiovascular: Negative for chest pain, palpitations and leg swelling. Gastrointestinal: Negative for abdominal pain, diarrhea and vomiting. Musculoskeletal: Negative for arthralgias, back pain and neck pain. Skin: Negative for color change, pallor, rash and wound. Allergic/Immunologic: Negative for environmental allergies and food allergies. Neurological: Negative for dizziness, facial asymmetry and headaches. Hematological: Negative for adenopathy. Does not bruise/bleed easily. Psychiatric/Behavioral: Negative for agitation and behavioral problems. Objective BP 144/80 Pulse 82 Temp 36.4 C (97.6 F) Resp 16 Wt 60.8 kg (134 lb) SpO2 96% BMI 21.63 kg/m Physical Exam Vitals and nursing note reviewed. Constitutional: General: She is not in acute distress. Appearance: Normal appearance. She is normal weight. She is not ill-appearing, toxic-appearing or diaphoretic. HENT: Head: Normocephalic and atraumatic. Right Ear: Ear canal and external ear normal. Left Ear: Ear canal and external ear normal. Nose: Nose normal. No congestion or rhinorrhea. Mouth/Throat: Mouth: Mucous membranes are moist. Pharynx: Posterior oropharyngeal erythema (mild posterior oropharynx ertyhema. Mild voice hoarseness. Handling secretions. No muffled voice) present. No oropharyngeal exudate. Eyes: General: Right eye: No discharge. Left eye: No discharge. Extraocular Movements: Extraocular movements intact. Conjunctiva/sclera: Conjunctivae normal. Pupils: Pupils are equal, round, and reactive to light. Cardiovascular: Rate and Rhythm: Normal rate and regular rhythm. Pulses: Normal pulses. Heart sounds: Normal heart sounds. No murmur heard. No friction rub. Pulmonary: Effort: Pulmonary effort is normal. No respiratory distress. Breath sounds: Normal breath sounds. No stridor. No wheezing, rhonchi or rales. Chest: Chest wall: No tenderness. Abdominal: General: Abdomen is flat. There is no distension. Palpations: Abdomen is soft. There is no mass. Tenderness: There is no abdominal tenderness. There is no right CVA tenderness, left CVA tenderness, guarding or rebound. Hernia: No hernia is present. Musculoskeletal: General: No swelling, tenderness, deformity or signs of injury. Normal range of motion. Cervical back: Normal range of motion and neck supple. No rigidity. Right lower leg: No edema. Left lower leg: No edema. Lymphadenopathy: Cervical: No cervical adenopathy. Skin: General: Skin is warm and dry. Coloration: Skin is not jaundiced or pale. Findings: No bruising, erythema, lesion or rash. Neurological: General: No focal deficit present. Mental Status: She is alert and oriented to person, place, and time. Cranial Nerves: No cranial nerve deficit. Sensory: No sensory deficit. Motor: No weakness. Coordination: Coordination normal. Gait: Gait normal. Psychiatric: Mood and Affect: Mood normal. Behavior: Behavior normal. Thought Content: Thought content normal. Judgment: Judgment normal. Assessment and Plan ASSESSMENT/PLAN: 1. Difficulty swallowing pills - ICD9: 787.99, ICD10: R19.8 (primary diagnosis) Occurred at 0300 this morning. States that the feeling of FB has since passed Just feels sore and scratchy now Airway patent Handling secretions. RX Doxycyline to cover possibility for aspiration pneumonia. 2. Pharyngitis, unspecified etiology - ICD9: 462, ICD10: J02.9 - suspect related to difficulty with swallowing a pill at 0300 today - Discussed supportive care treatment with fluids, rest and analgesia. Soft foods - The patient may also use warm salt water gargles, throat lozenges and/or OTC throat spray as needed. RX Prednisone - The patient should follow up in 3-5 days if symptoms persist or worsen - Call back if drooling, increased temperature, symptoms of dehydration and/or still sick in one week Kelsi Colby APRN.URMILA documented [facility] NoteHNO ID: [id number] Author: RT Hema(R) Service: ? Author Type: Catering Sales Manager Type: Progress Notes Filed: 01/15/2023 10:15 AM Note Text: Radiology Service Progress Note PATIENT NAME: Zenaida Evans DATE OF SERVICE: January 15, 2023 TIME: 10:03 AM PATIENT IDENTITY VERIFICATION COMPLETED USING TWO (2) IDENTIFIERS: Name and Date of confirmed by patient verbally. FALL SCREENING: Has the patient had 2 falls in the last year or 1 fall with injury or currently using an Ambulatory Assistive Device (Walker, Cane, Wheelchair, Crutches, etc.)? No PATIENT GENDER DATA: Female. status: : No status: NO. PATIENT RELEVANT IMPLANT DATA REVIEWED: Yes RADIOLOGY DEPARTMENT: General X-ray: Exam(s) Completed: Chest X-Ray PERIPHERAL IV DATA: Not applicable SIGNED BY: RT Hema(R) January 15, 2023 10:03 [facility]03-28-2023 NoteHNO ID: [id number] Author: Miguelina Clemente MD Service: ? Author Type: Physician Type: Progress Notes Filed: 01/12/2023 7:26 PM Note Text: Patient presents with: F/U 3 Month Since our last visit, had benign kidney ultrasound. She was recently treated with keflex. Recently saw Beck Escobedo: 01/06/2023 4:14 PM - Radiology, [place] In Impression IMPRESSION: BENIGN FINDING There is no mammographic evidence of malignancy. A 1 year screening mammogram is recommended. Has followed with cardiology and blood pressure has been well controlled. Doing well on current regimen: has not required lasix. levothyroxine (SYNTHROID) 88 mcg tablet, Take 1 tablet by mouth once daily., Disp: 90 tablet, Rfl: 1 cloNIDine TTS (CATAPRES-TTS) 0.1 mg/24 hr, Apply 1 Patch as directed one time a week., Disp: 12 Patch, Rfl: 3 labetalol (TRANDATE) 200 mg tablet, Take 1 tablet by mouth twice daily., Disp: 180 tablet, Rfl: 3 indapamide (LOZOL) 1.25 mg tablet, Take 1 tablet by mouth once daily., Disp: 90 tablet, Rfl: 3 minoxidil (LONITEN) 2.5 mg tablet, 1 tablet a day, Disp: 90 tablet, Rfl: 3 ketoconazole (NIZORAL) 2 % shampoo, Use to wash face and scalp two times a week. Lather and leave in for 3-5 minutes before rinsing., Disp: 240 mL, Rfl: 11 furosemide (LASIX) 20 mg tablet, Take 1 tablet by mouth every Wednesday,Wednesday,Wednesday (0600)., Disp: 36 tablet, Rfl: 3 Ferrous Sulfate (SLOW FE) 142 mg (45 mg iron) TbER, Take 1 tablet by mouth two times a week., Disp: , Rfl: MULTIVITAMIN ORAL, Take 1 tablet by mouth once daily., Disp: , Rfl: Melatonin 5 mg cap, Take 1 capsule by mouth at bedtime as needed., Disp: , Rfl: Cholecalciferol, Vitamin D3, 50 mcg (2,000 unit) cap, Take 1 capsule by mouth once daily., Disp: , Rfl: biotin 5 mg tab, Take 5 mg by mouth once daily., Disp: , Rfl: perflutren lipid microspheres 1.3 mL in NaCl (PF) 0.9% 10 mL injection (DEFINITY), , INTRAVENOUS, DIRECTED PRN, Melo Arango, APPLICATION SUPPORT TECHNICIAN.[employer] sodium chloride 0.9 % (flush) 10 mL (BD POSIFLUSH), 10 mL, INTRAVENOUS, DIRECTED PRN, Melo Arango APRN.URMILA States is a little depressed. does okay around the house. 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 For now is able to leave him at home for awhile. Ordered some great courses for . 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 disease, or chronic kidney disease (HCC) BMP Latest Ref Rng AND Units 01/08/2023 09/11/2022 09/08/2022 GLUCOSE 74 - 99 mg/dL 132(H) 110(H) 117(H) BUN 7 - 21 mg/dL 47(H) 40(H) 34(H) CREATININE 0.58 - 0.96 mg/dL 1.38(H) 1.42(H) 1.41(H) SODIUM 136 - 144 mmol/L 139 138 140 POTASSIUM 3.7 - 5.1 mmol/L 4.3 4.8 4.4 CHLORIDE 97 - 105 mmol/L 104 104 105 CO2 22 - 30 mmol/L 27 24 26 ANION GAP 9 - 18 mmol/L 8(L) 10 9 CALCIUM, TOTAL 8.5 - 10.2 mg/dL 9.8 9.4 9.6 eGFR >=60 mL/min/1.73m? 37(L) 36(L) 36(L) EGFR- - - - - EGFR-ALL OTHER RACES . - - - SVT (supraventricular tachycardia) (HCC) No acute changes. States occurs a couple of time a year at night. Found an iron pill that chiropractor sells and anemia resolved below. No chest pain. A little shortness of breath going upstairs and in the shower, but not on the treadmill. States over the last 6 months has noticed it now and then when goes up the stairs. BP 128/62 Pulse 72 Temp 36.6 ?C (97.8 ?F) (Oral) Wt 60.7 kg (133 lb 12 oz) SpO2 96% BMI 21.59 kg/m? BMP Latest Ref Rng AND Units 01/08/2023 09/11/2022 09/08/2022 GLUCOSE 74 - 99 mg/dL 132(H) 110(H) 117(H) BUN 7 - 21 mg/dL 47(H) 40(H) 34(H) CREATININE 0.58 - 0.96 mg/dL 1.38(H) 1.42(H) 1.41(H) SODIUM 136 - 144 mmol/L 139 138 140 POTASSIUM 3.7 - 5.1 mmol/L 4.3 4.8 4.4 CHLORIDE 97 - 105 mmol/L 104 104 105 CO2 22 - 30 mmol/L 27 24 26 ANION GAP 9 - 18 mmol/L 8(L) 10 9 CALCIUM, TOTAL 8.5 - 10.2 mg/dL 9.8 9.4 9.6 eGFR >=60 mL/min/1.73m? 37(L) 36(L) 36(L) EGFR- - - - - EGFR-ALL OTHER RACES . - - - Hemoglobin (g/dL) Date Value 01/08/2023 12.3 12/08/2021 10.5 Hematocrit (%) Date Value 01/08/2023 35.8 12/08/2021 31.4 WBC (k/uL) Date Value 01/08/2023 4.28 12/08/2021 4.18 Platelet Count (k/uL) Date Value 01/08/2023 181 12/08/2021 200 No carotid bruits. No lymphadenopathy in the neck. Lungs clear to auscultation bilaterally. Cardiovascular regular rate and rhythm without murmurs rubs or gallops. Extremities no significant pitting. ASSESSMENT/PLAN: Recommend get Tdap at a local pharmacy. 1. SVT (supraventricular tachycardia) (HCC) - ICD9: 427.89, ICD10: I47.1 (primary diagnosis) Stable. No acute issues related to this. Has palpitations occasionally at night 2. 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 disease, or chronic kidney disease (HCC) - ICD9: 404.91, 428.9, 585.9, ICD10: I13.0 - good control - Continue current medication(s) - BASI (more content not included)...[facility]03-22-2023 Miscellaneous Notes* Letter - Mammography Coordinator - 01/06/2023 4:13 PM EDT January 07, 2023 PID: [id number] Zenaida Evans [address] [place] [address] Dear Ms. Evans, We are pleased to inform you that the results of your recent breast imaging exam on 01/05/2023 are normal. Your mammogram demonstrates that you have dense breast tissue, which could hide abnormalities. Dense breast tissue, in and of itself, is a relatively common condition. Therefore, this information is not provided to cause undue concern; rather, it is to raise your awareness and promote discussion with your health care provider regarding the presence of dense breast tissue in addition to other riskfactors. Early detection of cancer is very important. We also understand recommendations regarding breast cancer screening are controversial. Please discuss with your primary care provider which strategy is best for you and whether a mammogram is right for you. Your imaging studies and report will be kept on file at [facility] as part of your permanent medical record and are available for your continuing care. Thank you for allowing us to help in meeting your health care needs. Sincerely, Dr. Laughlin Interpreting Radiologist [facility] (Normal over 40) documented in this encounter[facility]03-21-2023 NoteHNO ID: [id number] Author: RT Lidia(Renny) Service: Radiology Author Type: Catering Sales Manager Type: Progress Notes Filed: 01/05/2023 3:35 PM Note Text: Radiology Service Progress Note PATIENT NAME: Zenaida Evans DATE OF SERVICE: January 05, 2023 TIME: 3:35 PM PATIENT IDENTITY VERIFICATION COMPLETED USING TWO (2) IDENTIFIERS: Name and Date of confirmed by patient verbally. FALL SCREENING: Has the patient had 2 falls in the last year or 1 fall with injury or currently using an Ambulatory Assistive Device (Walker, Cane, Wheelchair, Crutches, etc.)? No PATIENT GENDER DATA: Female. status: : No status: NO. PATIENT RELEVANT IMPLANT DATA REVIEWED: Not Applicable RADIOLOGY DEPARTMENT: Mammography PERIPHERAL IV DATA: Not applicable SIGNED BY: PREETI MurilloR) January 05, 2023 3:35 [facility]03-21-2023 NoteHNO ID: [id number] Author: Alicia Escobedo APRN.DR[employer] Service: ? 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 She is an established patient in Breast Center who was last seen on 08/18/21 for annual exam and DBT mammogram with negative findings. She denies any breast masses, pain, skin changes or nipple discharge. She denies any new personal or family medical problems. She has history of CHF and Stage 3b Kidney disease which are both stable. 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 She underwent a right NL PM with SLN. Her final tumor size 1.7 cm, 0/5 SLN, no LVI and negative margins. She received XRT and chemotherapy wasn't recommended in her care. She took aromasin for 3 years stopping due to joint pain History pertaining to prior breast biopsies, genetic reports, pathology reports, treatment summaries, personal, social and family history has been extracted from my note dated 08/18/21. Her vitamin D level was Vitamin D 25 Hydroxy (ng/mL) Date Value 02/28/2018 44.1 She takes vitamin D 2000 units. BMD: Yes, Date in [facility]: 01/02/21; lowest T Score - 0.8-Normal PERSONAL BREAST HISTORY: Past breast history (prior to this encounter) is as follows: Breast biopsy: Yes, Right stereo bx 03/25-benign; right stere bx 03/26 benign; 09/27 Right core bx IDC at 12 o'clock position Breast cysts: No Breast surgery: Yes, 10/29 PM with SLN bx; Left ex bx- Breast cancer: Yes, Stage I (T 1c N 0 M 0) in 09/27, treated as above CANCER SURVEILLANCE: Mammograms: Yes, Date in [facility]: 08/18/21; results - Negative [place] Breast MRI: Yes, Date in Epic: 08/15/12; results - Negative Colonoscopy: Yes, Date in [facility]: 09/08/13; results - Diverticulosis-repeat in 10 yrs RISK FACTORS FOR BREAST CANCER: Age at the onset of menses: 13 years of age. P: 3 Age at the of first child: 23 years of age. She breast fed for 6 months total. Age at menopause: The patient underwent surgical menopause at age 31's. Post-menopausal hormone therapy: Yes, 75-09/2011 She is S/P total hysterectomy with negative pathology, done for fibroids; Date: 1974 She is postmenopausal and does not use control. History of Mantle Radiation prior to the age of 31: No Obesity: No Current Weight: 139 lbs Mammographic density: There are scattered fibroglandular densities Personal History of Benign Atypical Breast Biopsy: Left ALH 1990 Alcohol use: Rare PAST MEDICAL HISTORY: PAST MEDICAL HISTORY Diagnosis Date Breast cancer (HCC) 09/[address] Wood right ER positive s/p surgery/radiation and AI Collagenous colitis 07/30/2017 On biopsy 2012. Diarrhea hx of colitis Diffuse cystic mastopathy Dyspareunia Essential hypertension H/O complete eye exam 03/13/2011 no retinopathy detected -both eyes - [facility] [facility] - return in 1 year - Dr. Ruby hair thinning sees Dr Choudhary Hormone replacement therapy (HRT) 1974-present stopped by 09/2011 hx of low vitamin D treated 08/2007 20.4 recheck only 23 9/08 improved to 54 PMH - PAST MEDICAL HISTORY OF cardiac arrhythmia- resolved with change in medication Stage 3 chronic kidney disease (HCC) 11/22/2019 Symptomatic states associated with artificial menopause 1974 THBSO for fibroids age 40 Vaginal atrophy 08/2015 offered vag DHEA Vaginismus for PT Patient specifically denies history of: DVT, PE, migraine headaches WITH AURA, migraine headaches without aura, abnormal uterine bleeding, abnormal uterine biopsies, osteopenia and osteoporosis. PAST SURGICAL HISTORY: PAST SURGICAL HISTORY Procedure Laterality Date APPENDECTOMY BREAST BIOPSY CORE 04/16/2009 right breast stereo core biopsy BX BREAST NEEDLE CORE W/O IMAGING GUIDANCE SPX 04/02/2008 right breast stereo core biopsy BX/EXC LYMPH NODE OPEN DEEP AXILLARY NODE 10/30/2011 Right NL PM/SLNs CATARACT EXTRACTION HX Bilateral 09/04, 12/06 COLONOSCOPY FLX DX W/COLLJ SPEC WHEN PFRMD 09/08/2013 Colonoscopy MASTECTOMY, PARTIAL Right 10/30/2011 Right NL PM/SLNs PAST SURGICAL HISTORY OF bilat vein stripping PAST SURGICAL HISTORY OF Left 1991 left breast Atypical hyperplasia PAST SURGICAL HISTORY OF excision skin cancer TOTAL ABDOMINAL HYSTERECT W/WO RMVL TUBE OVARY early 1969's Hysterectomy, CAROL, due to fibroids. 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 She is an established patient in Breast Center who was last seen on 08/18/21 for annual exam and DBTmammogram with negative findings. She denies any breast masses, pain, skin changes or nipple discharge. She denies any new personal or family medical problems. She has history of CHF and Stage 3b Kidney disease which are both stable. 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 She underwent a right NL PM with SLN. Her final tumor size 1.7 cm, 0/5 SLN, no LVI and negative margins. She received XRT and chemotherapy wasn't recommended in her care. She took aromasin for 3 years stopping due to joint pain History pertaining to prior breast biopsies, genetic reports, pathology reports, treatment summaries, personal, social and family history has been extracted from my note dated 08/18/21. Her vitamin D level was Vitamin D 25 Hydroxy (ng/mL) Date Value 02/28/2018 44.1 She takes vitamin D 2000 units. BMD: Yes, Date in [facility]: 01/02/21; lowest T Score - 0.8-Normal PERSONAL BREAST HISTORY: Past breast history (prior to this encounter) is as follows: Breast biopsy: Yes, Right stereo bx 03/25-benign; right stere bx 03/26 benign; 09/27 Right core bx IDC at 12 o'clock position Breast cysts: No Breast surgery: Yes, 10/29 PM with SLN bx; Left ex bx-1990-ALH Breast cancer: Yes, Stage I (T 1c N 0 M 0) in 09/27, treated as above CANCER SURVEILLANCE: Mammograms: Yes, Date in Epic: 08/18/21; results - Negative [place] Breast MRI: Yes, Date in [facility]: 08/15/12; results - Negative Colonoscopy: Yes, Date in [facility]: 09/08/13; results - Diverticulosis-repeat in 10 yrs RISK FACTORS FOR BREAST CANCER: Age at the onset of menses: 13 years of age. P: 3 Age at the of first child: 23 years of age. She breast fed for 6 months total. Age at menopause: The patient underwent surgical menopause at age 31's. Post-menopausal hormone therapy: Yes, 75-09/2011 She is S/P total hysterectomy with negative pathology, done for fibroids; Date: 1974 She is postmenopausal and does not use control. History of Mantle Radiation prior to the age of 31: No Obesity: No Current Weight: 139 lbs Mammographic density: There are scattered fibroglandular densities Personal History of Benign Atypical Breast Biopsy: Left ALH 1990 Alcohol use: Rare PAST MEDICAL HISTORY: PAST MEDICAL HISTORY Diagnosis Date Breast cancer (HCC) 09/[address] Nina moraes ER positive s/p surgery/radiation and AI Collagenous colitis 07/30/2017 On biopsy 2012. Diarrhea hx of colitis Diffuse cystic mastopathy Dyspareunia Essential hypertension H/O complete eye exam 03/13/2011 no retinopathy detected -both eyes - [facility] [place] - return in 1 year - Dr. Ruby hair thinning sees Dr Choudhary Hormone replacement therapy (HRT) 1974-present stopped by 09/2011 hx of low vitamin D treated 08/2007 20.4 recheck only 23 9/08 improved to 54 PMH - PAST MEDICAL HISTORY OF cardiac arrhythmia- resolved with change in medication Stage 3 chronic kidney disease (HCC) 11/22/2019 Symptomatic states associated with artificial menopause 1975 THBSO for fibroids age 40 Vaginal atrophy 08/2015 offered vag DHEA Vaginismus for PT Patient specifically denies history of: DVT, PE, migraine headaches WITH AURA, migraine headaches without aura, abnormal uterine bleeding, abnormal uterine biopsies, osteopenia and osteoporosis. PAST SURGICAL HISTORY: PAST SURGICAL HISTORY Procedure Laterality Date APPENDECTOMY BREAST BIOPSY CORE 04/16/2009 right breast stereo core biopsy BX BREAST NEEDLE CORE W/O IMAGING GUIDANCE SPX 04/02/2008 right breast stereo core biopsy BX/EXC LYMPH NODE OPEN DEEP AXILLARY NODE 10/30/2011 Right NL PM/SLNs CATARACT EXTRACTION HX Bilateral 09/04, 12/06 COLONOSCOPY FLX DX W/COLLJ SPEC WHEN PFRMD 09/08/2013 Colonoscopy MASTECTOMY, PARTIAL Right 10/30/2011 Right NL PM/SLNs PAST SURGICAL HISTORY OF bilat vein stripping PAST SURGICAL HISTORY OF Left 1991 left breast Atypical hyperplasia PAST SURGICAL HISTORY OF excision skin cancer TOTAL ABDOMINAL HYSTERECT W/WO RMVL TUBE OVARY early Hysterectomy, CAROL, due to fibroids. SOCIAL HISTORY: Social History Tobacco Use Smoking status: Former Packs/day: 1.00 Years: 12.00 Pack years: 12.00 Types: Cigarettes Quit date: 01/19/1967 Years since quittin.0 Smokeless tobacco: Never Vaping Use Vaping Use: Never used Substance Use Topics Alcohol use: Yes Alcohol/week: 5.0 - 7.0 standard drinks Types: 5 - 7 Glasses of Wine (5oz) per week Drug use: No Caffeine intake: 1-2 cups / day Exercise: Most days <20 minutes 3 times per week FAMILY HISTORY: Reviewed: 01/05/23 Family history of breast cancer: MA Family history of ovarian cancer: None Number of sisters: 1 Number of maternal aunts: 3 Number of paternal aunts: 2 Ashkenazi Ancestry: no Has Patient had Genetic Testing? No Other Cancer: None There is no family history of prostate, colon, uterine, pancreatic, gastric, brain, renal cell or thyroid cancer. There is no family history of melanoma, sarcoma or leukemia. Osteoporosis: None Stroke: mother dx 60 Blood Clot: None Heart attack: None Thyroid Nodule or Goiter: None Autism: None FAMILY HISTORY Problem Relation Age of Onset Alzheimer's Disease Mother hypertension/stroke d89 Hypertension Mother Stroke Mother Heart Father heart failure, d 72 other (emphseyma) Sister d 59 other (healthy) Daughter other (healthy) Daughter other (healthy) Son Breast Cancer Maternal Aunt MEDICATIONS: cloNIDine TTS (CATAPRES-TTS) 0.1 mg/24 hr^Apply 1 Patch as directed one time a week.^Disp: 12 Patch^Rfl: 3 labetalol (TRANDATE) 200 mg tablet^Take 1 tablet by mouth twice daily.^Disp: 180 tablet^Rfl: 3 indapamide (LOZOL) 1.25 mg tablet^Take 1 tablet by mouth once daily.^Disp: 90 tablet^Rfl: 3 minoxidil (LONITEN) 2.5 mg tablet^1 tablet a day^Disp: 90 tablet^Rfl: 3 ketoconazole (NIZORAL) 2 % shampoo^Use to wash face and scalp two times a week. Lather and leave infor 3-5 minutes before rinsing.^Disp: 240 mL^Rfl: 11 furosemide (LASIX) 20 mg tablet^Take 1 tablet by mouth every Wednesday,Wednesday,Wednesday (0600).^Disp: 36 tablet^Rfl: 3 Ferrous Sulfate (SLOW FE) 142 mg (45 mg iron) TbER^Take 1 tablet by mouth two times a week.^Disp: ^Rfl: MULTIVITAMIN ORAL^Take 1 tablet by mouth once daily.^Disp: ^Rfl: Melatonin 5 mg cap^Take 1 capsule by mouth at bedtime as needed.^Disp: ^Rfl: Cholecalciferol, Vitamin D3, 50 mcg (2,000 unit) cap^Take 1 capsule by mouth once daily.^Disp: ^Rfl: biotin 5 mg tab^Take 5 mg by mouth once daily.^Disp: ^Rfl: levothyroxine (SYNTHROID) 88 mcg tablet^Take 1 tablet by mouth once daily.^Disp: 90 tablet^Rfl: 1 ALLERGIES: ALLERGIES Allergen Reactions Scopolamine Mental Status Change Hallucinations Amlodipine Other: See Comments Significant swelling even on 2.5 mg per day. Hctz [Thiazides] Contraindication-Medical Surgical Hyponatremia at 12.5 mg. Hydralazine Intolerance nausea Iron GI Upset CAN TAKE SLO-IRON Jardiance [Empaglif* Diarrhea Lipitor [Atorvastat* Myalgia Losartan Other: See Comments BRIGHT with elevated potassium and creatinine. Spironolactone Intolerance Blood pressure went up Talwin [Pentazocine* Mental Status Change HALLUCINATIONS Verapamil Hcl GI Upset constipation REVIEW OF SYSTEMS: She denies chest pain, shortness of breath, persistent cough, severe headaches, unusual bony pains,abdominal pain or unintentional weight loss. PHYSICAL EXAM: There were no vitals taken for this visit. General: well-nourished, healthy, white, female, alert and oriented x 3, calm Skin: warm, dry, skin color, texture, turgor normal Head/Eyes: normocephalic, atraumatic and anicteric Lymph nodes- The supraclavicular, axillary, and cervical regions are free of significant lymphadenopathy. Right breast-S/p partial mastectomy with no evidence of local recurrence. Mild XRT changes noted. The skin, nipple and areola appear normal. There is no skin dimpling with movement of the pectoralis.Nipple inverted chronically. No discharge can be elicited. The parenchya is moderately fibrocystic.There is no dominant masses in the breast. The axillary tail is normal. There is no tenderness noted with palpation. Left breast- The skin, nipple, and areola appear normal. There is no skin dimpling with movement ofthe pectoralis. Nipple inverted chronically. No discharge can be elicited. The parenchyma is moderately fibrocystic. There is no dominant masses in the breast. The axillary tail is normal. There is no tenderness noted with palpation. Chest: cl Cor: reg, no r/m/g IMAGING Digital Breast Tomosynthesis was performed today and the patient will be notified of the results.The tissue of both breasts is heterogeneously dense. This may lower the sensitivity of mammography. There are benign post operative findings and biopsy clips in the right breast. There is no mammographic evidence of malignancy Assessment IMPRESSION/PLAN: Zenaida Evans is a 87 year old year old female with bilateral fibrocystic change, a history of right breast cancer (12 yr survivor), LEFT ALH of breast, insomnia and weight loss There is no evidence of malignancy. The clinical and mammographic breast findings were discussed indetail. Results released to My Chart as agreed Her breast continue to be heterogeneously dense- Bi Rads Category C for density. Dense breasts can lower the sensitivity for screening mammography. DBT is associated with a 25-40% improved sensitivity and 15% fewer callbacks. DBT is associated with 2-3 times the radiation exposure compared with digital mammography, but is still below the FDA limit for radiation. She prefers to continue this surveillance annually Genetics referral made: No: Reason: N/A at this time Chemoprevention discussion: N/A The patient is advised to exercise regularly, achieve/maintain ideal body weight, and to limit alcohol consumption to less than 7 drinks weekly for breast cancer risk reduction and overall health. The patient is within 12 years of her breast cancer diagnosis and will be seen in follow up in the breast center. She will return in one year for bilateral DBT and clinical evaluation. She will call me in the interim should she have any questions or concerns. I spent a total of 28 minutes on the date of the service which included preparing to see the patient, [id number] patient care, completing clinical documentation, obtaining and/or reviewing separately obtained history, performing a medically appropriate examination, counseling and educating the pat ient/family/caregiver, ordering medications, tests, or procedures, communicating results to the patient/family/caregiver, and care coordination (not separately reported). Alicia Escobedo APRN.URMILA Medical Breast Specialist Women's Health Nurse Practitioner CC: Miguelina Clemente MD [address] [place] [address] documented in this [facility]-2023 NoteHNO ID: [id number] Author: Erwin Meyers MD Service: ? Author Type: Physician Type: Progress Notes Filed: 11/24/2022 11:54 AM Note Text: New patient referred by Self for left thumb concerns. HPI: Ms. Evans is a left hand dominant 87 year old year old female who is active, with a chief complaint of left thumb trigging. The symptoms have been going on for 8 months. No antecedent trauma, the patient not diabetic. Other complaints include none. Evaluation has included none. Treatment to date has included rest. The current pain is rated a 5/10 and interferes with ADLs. PAST MEDICAL HISTORY Diagnosis Date Breast cancer (HCC) 09/[address] Nina moraes ER positive s/p surgery/radiation and AI Collagenous colitis 07/30/2017 On biopsy 2012. Diarrhea hx of colitis Diffuse cystic mastopathy Dyspareunia Essential hypertension H/O complete eye exam 03/13/2011 no retinopathy detected -both eyes - [facility] - return in 1 year - Dr. Ruby hair thinning sees Dr Choudhary Hormone replacement therapy (HRT) 1974-present stopped by 09/2011 hx of low vitamin D treated 08/2007 20.4 recheck only 23 9/08 improved to 54 PMH - PAST MEDICAL HISTORY OF cardiac arrhythmia- resolved with change in medication Stage 3 chronic kidney disease (HCC) 11/22/2019 Symptomatic states associated with artificial menopause 1974 THBSO for fibroids age 40 Vaginal atrophy 08/2015 offered vag DHEA Vaginismus for PT Current Outpatient Medications Medication Sig Dispense Refill levothyroxine (SYNTHROID) 88 mcg tablet Take 1 tablet by mouth once daily. 90 tablet 1 cloNIDine TTS (CATAPRES-TTS) 0.1 mg/24 hr Apply 1 Patch as directed one time a week. 12 Patch 3 labetalol (TRANDATE) 200 mg tablet Take 1 tablet by mouth twice daily. 180 tablet 3 indapamide (LOZOL) 1.25 mg tablet Take 1 tablet by mouth once daily. 90 tablet 3 minoxidil (LONITEN) 2.5 mg tablet 1 tablet a day 90 tablet 3 ketoconazole (NIZORAL) 2 % shampoo Use to wash face and scalp two times a week. Lather and leave in for 3-5 minutes before rinsing. 240 mL 11 furosemide (LASIX) 20 mg tablet Take 1 tablet by mouth every Wednesday,Wednesday,Wednesday (0600). 36 tablet 3 Ferrous Sulfate (SLOW FE) 142 mg (45 mg iron) TbER Take 1 tablet by mouth two times a week. MULTIVITAMIN ORAL Take 1 tablet by mouth once daily. Melatonin 5 mg cap Take 1 capsule by mouth at bedtime as needed. Cholecalciferol, Vitamin D3, 50 mcg (2,000 unit) cap Take 1 capsule by mouth once daily. biotin 5 mg tab Take 5 mg by mouth once daily. Current Facility-Administered Medications Medication Dose Route Frequency Provider Last Rate Last Admin perflutren lipid microspheres 1.3 mL in NaCl (PF) 0.9% 10 mL injection (DEFINITY) INTRAVENOUS DIRECTED PRN Melo Arango, APPLICATION SUPPORT TECHNICIAN.[employer] sodium chloride 0.9 % (flush) 10 mL (BD POSIFLUSH) 10 mL INTRAVENOUS DIRECTED PRN Melo Arango, APPLICATION SUPPORT TECHNICIAN.[employer] ALLERGIES Allergen Reactions Scopolamine Mental Status Change Hallucinations Amlodipine Other: See Comments Significant swelling even on 2.5 mg per day. Hctz [Thiazides] Contraindication-Medical Surgical Hyponatremia at 12.5 mg. Hydralazine Intolerance nausea Iron GI Upset CAN TAKE SLO-IRON Jardiance [Empaglif* Diarrhea Lipitor [Atorvastat* Myalgia Losartan Other: See Comments BRIGHT with elevated potassium and creatinine. Spironolactone Intolerance Blood pressure went up Talwin [Pentazocine* Mental Status Change HALLUCINATIONS Verapamil Hcl GI Upset constipation All medical history, medications and allergies have been discussed with the patient today. ROS: REVIEW OF SYMPTOMS: Constitutional: patient denies any recent fever or significant change in weight Gastrointestinal: patient denies any current abdominal discomfort Musculoskeletal: as noted in the HPI Neurologic: as noted in the HPI SOCIAL HISTORY: Tobacco Use: 1 packs/day, for 12 years. Quit 01/19/1967. Types: Cigarettes Physical Examination: Ms. Evans is a healthy appearing female in no acute distress. Bilateral upper limbs have equal and intact peripheral pulses. Skin does not demonstrate any rashes or lesions. Negative Tinel's over the left carpal tunnel. Sensation is intact throughout. Positive tenderness to palpation over the left thumb A1 alessio and positive clicking of the involved digits, positive locking. The extensor tendons all track centrally. Assessment: L trigger thumb Plan: I discussed with Ms. Evans the diagnosis and different treatment options. We discussed observation, splinting, cortisone injections and surgical release. The patient would like to try cortisone injections. RTC 3 months prn. Inderjit Pierson PA-C November 24, 2022 11:38 AM Attending Note: I have seen and examined Ms.. Vital and discussed the patient management with Palomo Pierson Pa-C. The PA's progress note has been reviewed, edited, and signed. I was present for any and all p (more content not included)...[facility]02-07-2023 History of Present illness Narrative* Erwin Meyers MD - 11/24/2022 11:38 AM ESTAssociated Order(s): Additional Injections: L thumb A1 Post-Procedure Diagnose(s): Trigger thumb of left hand New patient referred by Self for left thumb concerns. HPI: Ms. Evans is a left hand dominant 87 year old year old female who is active, with a chief complaint of left thumb trigging. The symptoms have been going on for 8 months. No antecedent trauma, thepatient not diabetic. Other complaints include none. Evaluation has included none. Treatment to date has included rest. The current pain is rated a 5/10 and interferes with ADLs. PAST MEDICAL HISTORY Diagnosis Date Breast cancer (HCC) 09/[address] Wood right ER positive s/p surgery/radiation and AI Collagenous colitis 07/30/2017 On biopsy 2012. Diarrhea hx of colitis Diffuse cystic mastopathy Dyspareunia Essential hypertension H/O complete eye exam 03/13/2011 no retinopathy detected -both eyes - [facility] - return in 1 year - Dr. Ruby hair thinning sees Dr Choudhary Hormone replacement therapy (HRT) 1974-present stopped by 09/2011 hx of low vitamin D treated 08/2007 20.4 recheck only 23 06/25 improved to 54 PMH - PAST MEDICAL HISTORY OF cardiac arrhythmia- resolved with change in medication Stage 3 chronic kidney disease (HCC) 11/22/2019 Symptomatic states associated with artificial menopause 1974 THBSO for fibroids age 40 Vaginal atrophy 08/2015 offered vag DHEA Vaginismus for PT Current Outpatient Medications Medication Sig Dispense Refill levothyroxine (SYNTHROID) 88 mcg tablet Take 1 tablet by mouth once daily. 90 tablet 1 cloNIDine TTS (CATAPRES-TTS) 0.1 mg/24 hr Apply 1 Patch as directed one time a week. 12 Patch 3 labetalol (TRANDATE) 200 mg tablet Take 1 tablet by mouth twice daily. 180 tablet 3 indapamide (LOZOL) 1.25 mg tablet Take 1 tablet by mouth once daily. 90 tablet 3 minoxidil (LONITEN) 2.5 mg tablet 1 tablet a day 90 tablet 3 ketoconazole (NIZORAL) 2 % shampoo Use to wash face and scalp two times a week. Lather and leave infor 3-5 minutes before rinsing. 240 mL 11 furosemide (LASIX) 20 mg tablet Take 1 tablet by mouth every Wednesday,Wednesday,Wednesday (0600). 36 tablet 3 Ferrous Sulfate (SLOW FE) 142 mg (45 mg iron) TbER Take 1 tablet by mouth two times a week. MULTIVITAMIN ORAL Take 1 tablet by mouth once daily. Melatonin 5 mg cap Take 1 capsule by mouth at bedtime as needed. Cholecalciferol, Vitamin D3, 50 mcg (2,000 unit) cap Take 1 capsule by mouth once daily. biotin 5 mg tab Take 5 mg by mouth once daily. Current Facility-Administered Medications Medication Dose Route Frequency Provider Last Rate Last Admin perflutren lipid microspheres 1.3 mL in NaCl (PF) 0.9% 10 mL injection (DEFINITY) INTRAVENOUS DIRECTED PRN Melo Arango, APPLICATION SUPPORT TECHNICIAN.[employer] sodium chloride 0.9 % (flush) 10 mL (BD POSIFLUSH) 10 mL INTRAVENOUS DIRECTED PRN Melo Arango, APPLICATION SUPPORT TECHNICIAN.[employer] ALLERGIES Allergen Reactions Scopolamine Mental Status Change Hallucinations Amlodipine Other: See Comments Significant swelling even on 2.5 mg per day. Hctz [Thiazides] Contraindication-Medical Surgical Hyponatremia at 12.5 mg. Hydralazine Intolerance nausea Iron GI Upset CAN TAKE SLO-IRON Jardiance [Empaglif* Diarrhea Lipitor [Atorvastat* Myalgia Losartan Other: See Comments BRIGHT with elevated potassium and creatinine. Spironolactone Intolerance Blood pressure went up Talwin [Pentazocine* Mental Status Change HALLUCINATIONS Verapamil Hcl GI Upset constipation All medical history, medications and allergies have been discussed with the patient today. ROS: REVIEW OF SYMPTOMS: Constitutional: patient denies any recent fever or significant change in weight Gastrointestinal: patient denies any current abdominal discomfort Musculoskeletal: as noted in the HPI Neurologic: as noted in the HPI SOCIAL HISTORY: Tobacco Use: 1 packs/day, for 12 years. Quit 01/19/1967. Types: Cigarettes Physical Examination: Ms. Evans is a healthy appearing female in no acute distress. Bilateral upper limbs have equal and intact peripheral pulses. Skin does not demonstrate any rashes or lesions. Negative Tinel's over the left carpal tunnel. Sensation is intact throughout. Positive tenderness to palpation over the left thumb A1 alessio and positive clicking of the involved digits, positive locking.The extensor tendons all track centrally. Assessment: L trigger thumb Plan: I discussed with Ms. Evans the diagnosis and different treatment options. We discussed observation, splinting, cortisone injections and surgical release. The patient would like to try cortisone injections. RTC 3 months prn. Inderjit Pierson PA-C November 24, 2022 11:38 AM Attending Note: I have seen and examined Ms.. Vtial and discussed the patient management with Palomo Pierson Pa-C. The PA's progress note has been reviewed, edited, and signed. I was present for any and all procedures performed at this visit. Additional Injections: L thumb A1 for trigger finger Informed Consent Consent Obtained: Verbal [place] Protocol A moment to CARE was completed. SIGN IN Personnel directly involved with the procedure wore the appropriate PPE. Special Equipment: N/A Patient/Surrogate Stated/Verified: Patient name, Date of , Relevant allergies and Intended procedure TIME OUT Intended patient and procedure match the source document(s). Relevant labs, photos, and/or imaging studies have been reviewed. Correct side/site marked and visible. Medications required for procedure verified. No fire risk assessment and interventions applicable. No implant(s) inserted. 11/24/2022 11:54 AM The procedure site was prepped in the usual sterile fashion. Medications: 3 mg betamethasone acetate-betamethasone sodium phosphate 6 mg/mL Anesthetics: 0.5 mL lidocaine (PF) 10 mg/mL (1 %) Outcome: tolerated well, no immediate complications Post-injection instructions were reviewed with the patient and the patient voiced understanding of these instructions. SIGN OUT No specimen collected. All instruments, equipment, possible retained foreign bodies accounted for. Post-procedure follow-up management communicated and Plan of Care Visit completed when applicable Erwin Meyers MD documented in this encounterMer[facility]02-[facility]-2023 NoteHNO ID: [id number] Author: Melo Arango APRN.[employer] Service: ? Author Type: Nurse Practitioner Type: Progress Notes Filed: 11/20/2022 3:54 PM Note Text: Heart and Vascular [place] [facility] SECTION OF HEART FAILURE and CARDIAC TRANSPLANT MEDICINE OUTPATIENT VISIT DATE 11/20/2022 PRIMARY CARE PHYSICIAN: Miguelina Clemente [address] [place] [address] PRIMARY HEART FAILURE COAL HIKER: Dr. Bautista CHIEF COMPLAINT: Follow-up HISTORY OF PRESENT ILLNESS: Zenaida Evans is a 87 year old female seen today by me for follow-up. She was last seen in heart failure clinic with Dr. Bautista on 09/02/2022 and the following recommendations were made: 1. Furosemide as needed. 2. Start indapamide 1.25mg daily. 3. Return in 3 months with RONNIE and 6 months with me Since the last visit: -She is doing okay. -Her is having progressive vision impairment and she is having to help care for him more and is more tired. SOB: walking a distance or doing stairs; worsening Fatigue: increased Orthopnea: no PND: no Bendopnea: no Edema: legs; improvement Chest Pain: no Palpitations: increased at night (usually wakes up with them) Dizziness/Lightheadedness: no Syncope: no Appetite: good, denies nausea, denies early satiety Dietary restrictions: under 2,000 mg sodium Fluid Restriction: under 64 ounces Regular Exercise/ Activity: using a treadmill at gym 3 days per week Performs daily weights: yes PAST MEDICAL HISTORY Diagnosis Date Breast cancer (HCC) 09/[address] Nina moraes ER positive s/p surgery/radiation and AI Collagenous colitis 07/30/2017 On biopsy 2012. Diarrhea hx of colitis Diffuse cystic mastopathy Dyspareunia Essential hypertension H/O complete eye exam 03/13/2011 no retinopathy detected -both eyes - [facility] [place] - return in 1 year - Dr. Ruby hair thinning sees Dr Choudhary Hormone replacement therapy (HRT) 1974-present stopped by 09/2011 hx of low vitamin D treated 08/2007 20.4 recheck only 23 06/25 improved to 54 PMH - PAST MEDICAL HISTORY OF cardiac arrhythmia- resolved with change in medication Stage 3 chronic kidney disease (HCC) 11/22/2019 Symptomatic states associated with artificial menopause 1974 THBSO for fibroids age 40 Vaginal atrophy 08/2015 offered vag DHEA Vaginismus for PT PAST SURGICAL HISTORY Procedure Laterality Date APPENDECTOMY BREAST BIOPSY CORE 04/16/2009 right breast stereo core biopsy BX BREAST NEEDLE CORE W/O IMAGING GUIDANCE SPX 04/02/2008 right breast stereo core biopsy BX/EXC LYMPH NODE OPEN DEEP AXILLARY NODE 10/30/2011 Right NL PM/SLNs CATARACT EXTRACTION HX Bilateral 09/04, 12/06 COLONOSCOPY FLX DX W/COLLJ SPEC WHEN PFRMD 09/08/2013 Colonoscopy MASTECTOMY, PARTIAL Right 10/30/2011 Right NL PM/SLNs PAST SURGICAL HISTORY OF bilat vein stripping PAST SURGICAL HISTORY OF Left 1991 left breast Atypical hyperplasia PAST SURGICAL HISTORY OF excision skin cancer TOTAL ABDOMINAL HYSTERECT W/WO RMVL TUBE OVARY early 1969' Hysterectomy, CAROL, due to fibroids. SOCIAL HISTORY Social History Tobacco Use Smoking status: Former Packs/day: 1.00 Years: 12.00 Pack years: 12.00 Types: Cigarettes Quit date: 01/19/1967 Years since quittin.8 Smokeless tobacco: Never Vaping Use Vaping Use: Never used Substance Use Topics Alcohol use: Yes Alcohol/week: 5.0 - 7.0 standard drinks Types: 5 - 7 Glasses of Wine (5oz) per week Drug use: No FAMILY HISTORY Problem Relation Age of Onset Alzheimer's Disease Mother hypertension/stroke d89 Hypertension Mother Stroke Mother Heart Father heart failure, d 72 other (emphseyma) Sister d 59 other (healthy) Daughter other (healthy) Daughter other (healthy) Son Breast Cancer Maternal Aunt ALLERGIES: ALLERGIES Allergen Reactions Scopolamine Mental Status Change Hallucinations Amlodipine Other: See Comments Significant swelling even on 2.5 mg per day. Hctz [Thiazides] Contraindication-Medical Surgical Hyponatremia at 12.5 mg. Hydralazine Intolerance nausea Iron GI Upset CAN TAKE SLO-IRON Lipitor [Atorvastat* Myalgia Losartan Other: See Comments BRIGHT with elevated potassium and creatinine. Spironolactone Intolerance Blood pressure went up Talwin [Pentazocine* Mental Status Change HALLUCINATIONS Verapamil Hcl GI Upset constipation CURRENT MEDICATIONS: levothyroxine (SYNTHROID) 88 mcg tablet Take 1 tablet by mouth once daily. cloNIDine TTS (CATAPRES-TTS) 0.1 mg/24 hr Apply 1 Patch as directed one time a week. labetalol (TRANDATE) 200 mg tablet Take 1 tablet by mouth twice daily. canagliflozin (INVOKANA) 100 mg tab Take 1 tablet by mouth daily with breakfast. indapamide (LOZOL) 1.25 mg tablet Take 1 tablet by mouth once daily. minoxidil (LONITEN) 2.5 mg tablet 1 tablet a day ketoconazole (NIZORAL (more content not included)...[facility] 11-20-2022 Instructions* Patient Instructions* Melo Arango APRN.CNP - 11/20/2022 11:27 AM EST -No medication changes today. -Please have blood work drawn on 01/12/2023 and I will follow-up with you when I get the results. -Follow-up with Dr. Bautista on 04/02/2023 with echo (if possible). documented in this encounterMer[facility]02-03-2023 History of Present illness Narrative* Melo Arango APRN.CNP - 11/20/2022 10:26 AM EST Images from the original note were not included. Heart [facility] Vascular [place] [facility] SECTION OF HEART FAILURE and CARDIAC TRANSPLANT MEDICINE OUTPATIENT VISIT DATE 11/20/2022 PRIMARY CARE PHYSICIAN: Miguelina Clemente [address] [place] [address] PRIMARY HEART FAILURE COAL HIKER: Dr. Bautista CHIEF COMPLAINT: Follow-up HISTORY OF PRESENT ILLNESS: Zenaida Evans is a 87 year old female seen today by me for follow-up.She was last seen in heart failure clinic with Dr. Bautista on 09/02/2022 and the following recommendations were made: 1. Furosemide as needed. 2. Start indapamide 1.25mg daily. 3. Return in 3 months with RONNIE and 6 months with me Since the last visit: -She is doing okay. -Her is having progressive vision impairment and she is having to help care for him more and is more tired. SOB: walking a distance or doing stairs; worsening Fatigue: increased Orthopnea: no PND: no Bendopnea: no Edema: legs; improvement Chest Pain: no Palpitations: increased at night (usually wakes up with them) Dizziness/Lightheadedness: no Syncope: no Appetite: good, denies nausea, denies early satiety Dietary restrictions: under 2,000 mg sodium Fluid Restriction: under 64 ounces Regular Exercise/ Activity: using a treadmill at gym 3 days per week Performs daily weights: yes PAST MEDICAL HISTORY Diagnosis Date Breast cancer (HCC) 09/[address] Wood right ER positive s/p surgery/radiation and AI Collagenous colitis 07/30/2017 On biopsy 2012. Diarrhea hx of colitis Diffuse cystic mastopathy Dyspareunia Essential hypertension H/O complete eye exam 03/13/2011 no retinopathy detected -both eyes - [facility] - return in 1 year - Dr. Ruby hair thinning sees Dr Choudhary Hormone replacement therapy (HRT) 1974-present stopped by 09/2011 hx of low vitamin D treated 08/2007 20.4 recheck only 23 06/25 improved to 54 PMH - PAST MEDICAL HISTORY OF cardiac arrhythmia- resolved with change in medication Stage 3 chronic kidney disease (HCC) 11/22/2019 Symptomatic states associated with artificial menopause 1974 THBSO for fibroids age 40 Vaginal atrophy 08/2015 offered vag DHEA Vaginismus for PT PAST SURGICAL HISTORY Procedure Laterality Date APPENDECTOMY BREAST BIOPSY CORE 04/16/2009 right breast stereo core biopsy BX BREAST NEEDLE CORE W/O IMAGING GUIDANCE SPX 04/02/2008 right breast stereo core biopsy BX/EXC LYMPH NODE OPEN DEEP AXILLARY NODE 10/30/2011 Right NL PM/SLNs CATARACT EXTRACTION HX Bilateral 09/04, 12/06 COLONOSCOPY FLX DX W/COLLJ SPEC WHEN PFRMD 09/08/2013 Colonoscopy MASTECTOMY, PARTIAL Right 10/30/2011 Right NL PM/SLNs PAST SURGICAL HISTORY OF bilat vein stripping PAST SURGICAL HISTORY OF Left 1991 left breast Atypical hyperplasia PAST SURGICAL HISTORY OF excision skin cancer TOTAL ABDOMINAL HYSTERECT W/WO RMVL TUBE OVARY early Hysterectomy, CAROL, due to fibroids. SOCIAL HISTORY Social History Tobacco Use Smoking status: Former Packs/day: 1.00 Years: 12.00 Pack years: 12.00 Types: Cigarettes Quit date: 01/19/1967 Years since quittin.8 Smokeless tobacco: Never Vaping Use Vaping Use: Never used Substance Use Topics Alcohol use: Yes Alcohol/week: 5.0 - 7.0 standard drinks Types: 5 - 7 Glasses of Wine (5oz) per week Drug use: No FAMILY HISTORY Problem Relation Age of Onset Alzheimer's Disease Mother hypertension/stroke d89 Hypertension Mother Stroke Mother Heart Father heart failure, d 72 other (emphseyma) Sister d 59 other (healthy) Daughter other (healthy) Daughter other (healthy) Son Breast Cancer Maternal Aunt ALLERGIES: ALLERGIES Allergen Reactions Scopolamine Mental Status Change Hallucinations Amlodipine Other: See Comments Significant swelling even on 2.5 mg per day. Hctz [Thiazides] Contraindication-Medical Surgical Hyponatremia at 12.5 mg. Hydralazine Intolerance nausea Iron GI Upset CAN TAKE SLO-IRON Lipitor [Atorvastat* Myalgia Losartan Other: See Comments BRIGHT with elevated potassium and creatinine. Spironolactone Intolerance Blood pressure went up Talwin [Pentazocine* Mental Status Change HALLUCINATIONS Verapamil Hcl GI Upset constipation CURRENT MEDICATIONS: levothyroxine (SYNTHROID) 88 mcg tablet Take 1 tablet by mouth once daily. cloNIDine TTS (CATAPRES-TTS) 0.1 mg/24 hr Apply 1 Patch as directed one time a week. labetalol (TRANDATE) 200 mg tablet Take 1 tablet by mouth twice daily. canagliflozin (INVOKANA) 100 mg tab Take 1 tablet by mouth daily with breakfast. indapamide (LOZOL) 1.25 mg tablet Take 1 tablet by mouth once daily. minoxidil (LONITEN) 2.5 mg tablet 1 tablet a day ketoconazole (NIZORAL) 2 % shampoo Use to wash face and scalp two times a week. Lather and leave infor 3-5 minutes before rinsing. furosemide (LASIX) 20 mg tablet Take 1 tablet by mouth every Wednesday,Wednesday,Wednesday (0600). Ferrous Sulfate (SLOW FE) 142 mg (45 mg iron) TbER Take 1 tablet by mouth two times a week. MULTIVITAMIN ORAL Take 1 tablet by mouth once daily. Melatonin 5 mg cap Take 1 capsule by mouth at bedtime as needed. Cholecalciferol, Vitamin D3, 50 mcg (2,000 unit) cap Take 1 capsule by mouth once daily. biotin 5 mg tab Take 5 mg by mouth once daily. REVIEW OF SYSTEMS: See HPI PHYSICAL EXAMINATION: BP 137/68 Pulse 76 Ht 167.6 cm (5' 6 ) Wt 61.9 kg (136 lb 8 oz) SpO2 95% BMI 22.03 kg/m Last weight on home scale: 132 lbs (stable) Home BP: 140/70's Home HR: 80's Last 10 Encounter Wt Readings: Date: Wt: 10/05/2022 60.2 kg (132 lb 12.8 oz) 10/01/2022 60.2 kg (132 lb 12 oz) 09/02/2022 60.3 kg (133 lb)- last visit 07/16/2022 62.3 kg (137 lb 4 oz) 05/22/2022 62.7 kg (138 lb 3.7 oz) 05/18/2022 62.3 kg (137 lb 6.4 oz) 05/14/2022 63.4 kg (139 lb 12.8 oz) 04/17/2022 60.8 kg (134 lb) 04/14/2022 61.2 kg (135 lb) 12/29/2021 61.2 kg (135 lb) General appearance: No acute distress, conversant Neurologic/Psychiatric: Alert and oriented to time, place and person; mood pleasant. Gait grossly normal HEENT: PERRLA and EOM's intact, neck supple, no carotid bruits, grossly normal thyroid, normal hearing Neck: JVP normal. Trachea midline, full range of motion Heart: Rate regular. S1, S2 present. No gallop. No Rub. No murmur. Lungs: clear bilaterally. Normal work of breathing, speaking in full sentences without difficulty. Abdomen: soft, non-distended, non-tender, normal bowel sounds, no organomegaly noted Extremities: Nails no clubbing or cyanosis. Warm, peripheral pulses palpable, 1+ BLE edema, +Changes of chronic venous insufficieny to BLE Skin: Warm and dry. No rash or ulcers CARDIOVASCULAR MEDICINE TESTING: Echocardiogram: CONCLUSIONS: - Technically difficult exam due to suboptimal positioning. - Exam indication: Abnormal Cardiac Biomarkers - The left ventricle is normal in size. Left ventricular systolic function is normal. EF = 60 5% (2D biplane) Normal left ventricular diastolic function. - The right ventricle is normal in size. Right ventricular systolic function is normal. - Exam was compared with the prior echocardiographic exam performed on 08/21/16 STRESS. Similar rest findings. Labs: Component Latest Ref Rng & Units 08/12/2020 01/17/2021 03/19/2021 08/28/2021 05/21/2022 06/01/2022 09/08/2022 09/11/2022 Protein, Total 6.3 - 8.0 g/dL 6.3 6.2 (L) 6.5 6.3 Albumin 3.9 - 4.9 g/dL 4.0 4.2 4.2 4.2 Calcium 8.5 - 10.2 mg/dL 9.3 9.7 9.8 8.8 9.3 9.6 9.4 Bilirubin, Total 0.2 - 1.3 mg/dL 0.4 0.6 0.5 0.5 Alkaline Phosphatase 34 - 123 U/L 70 58 70 64 AST 13 - 35 U/L 19 19 25 22 Glucose 74 - 99 mg/dL 91 90 90 91 144 (H) 117 (H) 110 (H) BUN 7 - 21 mg/dL 30 (H) 38 (H) 36 (H) 26 (H) 38 (H) 34 (H) 40 (H) Creatinine 0.58 - 0.96 mg/dL 1.29 (H) 1.27 (H) 1.38 (H) 1.17 (H) 1.46 (H) 1.41 (H) 1.42 (H) Sodium 136 - 144 mmol/L 142 143 139 139 139 140 138 Potassium 3.7 - 5.1 mmol/L 4.6 5.1 5.0 5.0 4.6 4.4 4.8 Chloride 97 - 105 mmol/L 106 (H) 107 (H) 105 107 (H) 106 (H) 105 104 CO2 22 - 30 mmol/L 28 28 24 21 (L) 22 26 24 Anion Gap 9 - 18 mmol/L 8 (L) 8 (L) 10 11 11 9 10 ALT 7 - 38 U/L 18 22 16 20 eGFR- 48 49 44 eGFR-All Other Races . 39 40 36 eGFR >=60 mL/min/1.73m 46 (L) 35 (L) 36 (L) 36 (L) Magnesium 1.7 - 2.3 mg/dL NT Pro BNP <450 pg/mL 1,228 (H) 1,026 (H) 1,120 (H) See EPIC for details of other cardiac testing. IMPRESSION: NYHA Functional Class: II Stage: C heart failure -HFpEF/ chronic diastolic heart failure / LVEF 60% Zenaida Evans is here today for follow-up. At her last visit, she was started on indapamide for uncontrolled BP. Today, she is warm and near euvolemic. Her weight has been stable with her taking lasix once weekly (she denies any weight gain of 3 lbs). Her BP is much better controlled now that she is on indapamide. She states that her breathing is stable, but that her fatigue is a little worse. Her is nearly blind and she has been having to care for him around the clock and is feeling tired from this. She reports that she is med and dietary adherent. Most recent labs reviewed and are stable. No medication changes today. I will order lab work for when she sees her PCP in December and order her yearly echo to be added at her earliest convenience. BB: Labetalol 200 mg BID ACEi/ARB/ARNI: no CKD MRA: no CKD SGLT2i: no, diarrhea and ?UTI Vasodilators: no Inotrope: no Diuretic regimen: Lasix 20 mg once daily PRN Digoxin: no Anti-arrhythmics: no Ivabradine: no Other anti-HTN: clonidine 0.1 mg patch weekly Device therapy: no, redding QRS: 80 ms Sleep apnea: no Anemia: no --Hypertension - controlled --Hypothyroidism --CKD stage 3b (cr 1.36 with eGFR of 36) PLAN AND RECOMMENDATIONS: -No medication changes today. -Please have blood work drawn on 01/12/2023 and I will follow-up with you when I get the results. -Follow-up with Dr. Bautista on 04/02/2023 with echo (if possible). ADDENDUM: Patient reports one UTI since starting indapamide. Discussed with Nanette Corado PharmD and she recommends that we continue medication for now and observe for recurrence. I personally interviewed, confirmed and edited the above information as obtained by others The majority of the visit was spent counseling and/or coordinating care for the patient. Face to Face time was 40 minutes. We discussed natural history of disease, current treatment options, future potential treatment options including transplant, mechanical support, etc. We discussed diet, exercise, other non- medical management as above. Melo Arango MSN, ACNP-BC, CHFN, [facility] Section Of Heart Failure and Cardiac Transplant Medicine [facility] [place] [facility] Desk [id number] [place] [address] documented in this encounterMercy Health [facility] Hospital01-12-2023 Miscellaneous Notes* Telephone Encounter - Keyona Mckeon - 10/29/2022 9:38 AM EST Patient informed. * Telephone Encounter - Miguelina Clemente MD - 10/29/2022 9:33 AM EST Please inform of unviewed mychart results (kidney us): Your kidney ultrasound reveals benign findings and there is no evidence of urinary retention. Dr. Clemente Written by Miguelina Clemente MD on 10/22/2022 7:28 PM EST documented in this encounterMercy Health [facility] Hospital12-22-2022 Miscellaneous Notes* Telephone Encounter - Crystal Leahy LPN - 10/08/2022 1:37 PM EST Patient spouse notified of results, verbalizes understanding of instructions. He will tell Pt. Crystal Leahy LPN * Telephone Encounter - Sandhya Martinez APRN.CNP - 10/08/2022 10:33 AM EST Patient's symptoms should be improving on the antibiotic according to culture. If patient symptoms are worsening patient should follow-up with primary care provider. documented in this encounterMercy Health [facility] Hospital12-22-2022 History of Present illness Narrative* Kelsi Ortez RDMS - 10/08/2022 10:45 AM EST Radiology Service Progress Note PATIENT NAME: Zenaida Evans DATE OF SERVICE: October 08, 2022 TIME: 11:09 AM PATIENT IDENTITY VERIFICATION COMPLETED USING TWO (2) IDENTIFIERS: Name and Date of confirmedby patient verbally. FALL SCREENING: Has the patient had 2 falls in the last year or 1 fall with injury or currently using an Ambulatory Assistive Device (Walker, Cane, Wheelchair, Crutches, etc.)? No PATIENT GENDER DATA: Female. status: : No status: NO. PATIENT RELEVANT IMPLANT DATA REVIEWED: Not Applicable RADIOLOGY DEPARTMENT: Ultrasound PERIPHERAL IV DATA: Not applicable SIGNED BY: Kelsi Ortez RDMS RVT October 08, 2022 11:09 AM documented in this encounterMercy Health [facility] Hospital12-19-2022 History of Present illness Narrative* Ramandeep Nieto PA-C - 10/05/2022 3:08 PM EST 10/05/2022 Patient presents with: UTI: Pelvic pain, pain with urination x4 days SUBJECTIVE: This is a 87 year old that is here today for Complaint(s) of dysuria x 3-4 days. Havingpressure associated. Notes increased urination (increased from recent visit with Dr. Clemente) A pelvic and renal US was ordered at last visit with concern of urinary frequency and possible retention. Patient is able to urinate. Denies fever/chills, vomiting, hematuria, severa abdomianal pain. Having some lower back discomfort. PAST MEDICAL HISTORY Diagnosis Date Breast cancer (HCC) 09/[address] Nina moraes ER positive s/p surgery/radiation and AI Collagenous colitis 07/30/2017 On biopsy 2012. Diarrhea hx of colitis Diffuse cystic mastopathy Dyspareunia Essential hypertension H/O complete eye exam 03/13/2011 no retinopathy detected -both eyes - [facility] [place] - return in 1 year - Dr. Ruby hair thinning sees Dr Choudhary Hormone replacement therapy (HRT) 1974-present stopped by 09/2011 hx of low vitamin D treated 08/2007 20.4 recheck only 23 9/08 improved to 54 PMH - PAST MEDICAL HISTORY OF cardiac arrhythmia- resolved with change in medication Stage 3 chronic kidney disease (HCC) 11/22/2019 Symptomatic states associated with artificial menopause 1974 THBSO for fibroids age 40 Vaginal atrophy 08/2015 offered vag DHEA Vaginismus for PT ALLERGIES Scopolamine, Amlodipine, Hctz [Thiazides], Hydralazine, Iron, Lipitor [Atorvastatin], Losartan, Spironolactone, Talwin [Pentazocine Lactate], and Verapamil Hcl MEDICATIONS Current Outpatient Medications Medication Sig levothyroxine (SYNTHROID) 88 mcg tablet Take 1 tablet by mouth once daily. cloNIDine TTS (CATAPRES-TTS) 0.1 mg/24 hr Apply 1 Patch as directed one time a week. labetalol (TRANDATE) 200 mg tablet Take 1 tablet by mouth twice daily. canagliflozin (INVOKANA) 100 mg tab Take 1 tablet by mouth daily with breakfast. indapamide (LOZOL) 1.25 mg tablet Take 1 tablet by mouth once daily. minoxidil (LONITEN) 2.5 mg tablet 1 tablet a day ketoconazole (NIZORAL) 2 % shampoo Use to wash face and scalp two times a week. Lather and leave infor 3-5 minutes before rinsing. furosemide (LASIX) 20 mg tablet Take 1 tablet by mouth every Wednesday,Wednesday,Wednesday (0600). Ferrous Sulfate (SLOW FE) 142 mg (45 mg iron) TbER Take 1 tablet by mouth two times a week. MULTIVITAMIN ORAL Take 1 tablet by mouth once daily. Melatonin 5 mg cap Take 1 capsule by mouth at bedtime as needed. Cholecalciferol, Vitamin D3, 50 mcg (2,000 unit) cap Take 1 capsule by mouth once daily. biotin 5 mg tab Take 5 mg by mouth once daily. No current facility-administered medications for this visit. SOCIAL HISTORY Social History Tobacco Use Smoking status: Former Packs/day: 1.00 Years: 12.00 Pack years: 12.00 Types: Cigarettes Quit date: 01/19/1967 Years since quittin.7 Smokeless tobacco: Never Vaping Use Vaping Use: Never used Substance Use Topics Alcohol use: Yes Alcohol/week: 5.0 - 7.0 standard drinks Types: 5 - 7 Glasses of Wine (5oz) per week Drug use: No REVIEW OF SYSTEMS See HPI OBJECTIVE: BP 162/84 Pulse 81 Temp 36.2 C (97.2 F) Resp 20 Wt 60.2 kg (132 lb 12.8 oz) SpO2 97% BMI 21.11 kg/m APPEARANCE Well appearing, alert, in no acute distress, well-hydrated, well nourished. ABDOMEN soft, non-tender, non-distended, without organomegaly or palpable masses, BACK: Normal exam, no CVA TTP. Mild low back TTP. No vertebral TTP. ASSESSMENT/PLAN: 1. Pain with urination - ICD9: 788.1, ICD10: R30.9 acute - UA positive for laine esterase, hematuria, proteinuria, and nitrates - Send urine for culture - Patinet with CKD stage 3, CrCl calculated 26. Begin treatment with keflex 500 mg BID for 7 days - Patient education for prevention given - UA DIP, URINE (POC) - URINE CULTURE - CEPHALEXIN 500 MG CAPSULE Reviewed red flags and when to seek care sooner. The patient indicates understanding of these issues and agrees with the plan. F/U with PCP /urology if urine culture is negative with + hematuria on UA dip. Ramandeep Nieto PA-C documented in this encounter[facility] History of Present illness Narrative* Miguelina Clemente MD - 10/01/2022 2:52 PM EST Patient presents with: Follow Up On the 24 hour monitor 160's per cardiology. At home 120's to 130's. Feels when voids bladder, is not emptying. May have to go a few more times than normal. It doesn't feel like it used to. States only recently started the invokana. BP 98/58 Pulse 94 Temp 36.7 C (98 F) (Oral) Wt 60.2 kg (132 lb 12 oz) SpO2 96% BMI 21.11 kg/m Component Latest Ref Rng & Units 06/01/2022 06/23/2022 09/08/2022 09/11/2022 WBC 3.70 - 11.00 k/uL 4.80 RBC 3.90 - 5.20 m/uL 3.74 (L) Hemoglobin 11.5 - 15.5 g/dL 11.9 Hematocrit 36.0 - 46.0 % 36.6 MCV 80.0 - 100.0 fL 97.9 MCH 26.0 - 34.0 pg 31.8 MCHC 30.5 - 36.0 g/dL 32.5 RDW-CV 11.5 - 15.0 % 13.3 Platelet Count 150 - 400 k/uL 171 MPV 9.0 - 12.7 fL 9.9 Neut% % 41.7 Abs Neut (ANC) 1.45 - 7.50 k/uL 2.00 Lymph% % 43.8 Abs Lymph 1.00 - 4.00 k/uL 2.10 [place]% % 10.4 Abs [place] <0.87 k/uL 0.50 Eosin% % 3.3 Abs Eosin <0.46 k/uL 0.16 Baso% % 0.6 Abs Baso <0.11 k/uL 0.03 Immature Gran % % 0.2 IMMATURE GRANS (ABS) <0.10 k/uL <0.03 NRBC /100 WBC 0.0 Absolute nRBC <0.01 k/uL <0.01 DTYPE Auto Glucose 74 - 99 mg/dL 144 (H) 117 (H) 110 (H) BUN 7 - 21 mg/dL 38 (H) 34 (H) 40 (H) Creatinine 0.58 - 0.96 mg/dL 1.46 (H) 1.41 (H) 1.42 (H) Sodium 136 - 144 mmol/L 139 140 138 Potassium 3.7 - 5.1 mmol/L 4.6 4.4 4.8 Chloride 97 - 105 mmol/L 106 (H) 105 104 CO2 22 - 30 mmol/L 22 26 24 Anion Gap 9 - 18 mmol/L 11 9 10 Calcium 8.5 - 10.2 mg/dL 9.3 9.6 9.4 eGFR >=60 mL/min/1.73m 35 (L) 36 (L) 36 (L) Iron 41 - 186 ug/dL 103 TIBC Transferrin Saturation TSH 0.270 - 4.200 mIU/L 2.590 NT Pro BNP <450 pg/mL 1,120 (H) No acute distress Lungs clear to auscultation bilaterally Cardiovascular regular rate and rhythm without mrg Recheck blood pressure 100 /60. ASSESSMENT/PLAN: 1. Stage 3 chronic kidney disease, unspecified whether stage 3a or 3b CKD (HCC) - ICD9: 585.3, ICD10: N18.30 (primary diagnosis) Blood pressure improved on - CANAGLIFLOZIN 100 MG TABLET Recommend recheck basic metabolic panel in 3 months before follow up. 2. Hypothyroidism, unspecified type - ICD9: 244.9, ICD10: E03.9 Request refill. Euthyroid. - LEVOTHYROXINE 88 MCG TABLET 3. Essential hypertension - ICD9: 401.9, ICD10: I10 - good control. Feeling okay at current blood pressure. Since blood pressure's higher at home, no change in meds today. Patient to let me know if persistently low then consider holding lasix. Unless change in weight. - CLONIDINE 0.1 MG/24 HR WEEKLY TRANSDERMAL PATCH - LABETALOL 200 MG TABLET 4. 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 disease, or chronic kidney disease (HCC) - ICD9: 404.91, 428.9, 585.9, ICD10: I13.0 - good control - Continue current medication(s) - see above. - Goal of BP <130/80 - CANAGLIFLOZIN 100 MG TABLET 5. Urinary retention - ICD9: 788.20, ICD10: R33.9 - US KIDNEY/BLADDER - US PELVIS BLADDER 6. Anemia due to stage 3b chronic kidney disease (HCC) - ICD9: 285.21, 585.3, ICD10: N18.32, D63.1 Continue iron. Follow up as needed with hematology if hb drifts below 10. - CANAGLIFLOZIN 100 MG TABLET Return in about 3 months (around 12/30/2022). Miguelina Clemente MD documented in this encounter[facility]12-[facility] Evaluation note* Diagnosis Stage 3 chronic kidney disease, unspecified whether stage 3a or 3b CKD (HCC)- Primary Hypothyroidism, unspecified type Essential hypertension Unspecified essential hypertension 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 disease, or chronic kidney disease (HCC) Unspecified hypertensive heart and kidney disease with heart failure and with chronic kidney disease stage I through stage IV, or unspecified Urinary retention Retention of urine, unspecified Anemia due to stage 3b chronic kidney disease (HCC) documented in this encounter [facility] History of Present illness Narrative* Rosendo Rodgres MD - 09/14/2022 2:43 PM EST Phone call. Reviewed labs, hemoglobin normal. Plan recheck in spring. 10 minute phone call. Rosendo Rodgers MD September 14, 2022 documented in this encounterMer[facility]11-25-2022 Miscellaneous Notes* Telephone Encounter - Letitia Kaufman - 09/11/2022 8:46 AM EST Alecia Care Coordination FOLLOW-UP NOTE Patient identified by name and date of . YES Spoke to patient Summary: (Reason for follow-up) I spoke with Zenaida, lucy labs are in. She verbalized understanding. No further questions. Care Coordination Plan: No further follow up needed at this time Letitia Kaufman RN September 11, 2022 * Telephone Encounter - Lesli Morgan APRN.CNP - 09/11/2022 8:17 AM EST Lab orders placed. Please let patient know. Lesli Morgan APRN.CNP * Telephone Encounter - Kaity Hall - 09/09/2022 11:56 AM EST Patient calling and asking for Dr. Rodgers to place her lab orders needed before her appointmenton Wednesday. Please call the patient once the orders are in at [phone]. Thank you documented in this encounterMer[facility]11-16-2022 Instructions* Patient Instructions* William Bautista MD - 09/02/2022 1:56 PM EST Thank you for visiting the [facility]. Here are your instructions. 1. Only take your furosemide as needed for weight gain of 3lbs in a day or 5lbs in a week. 2. Start indapamide 1.25mg per day. 3. Obtain labs in 1 week. 4. Return in 3 months with SAND CASTER APPRENTICE and 6 months with me. Please call with questions or concerns. Office: [phone] William Bautista MD documented in this encounterMer[facility]11-16-2022 History of Present illness Narrative* William Bautista MD - 09/02/2022 1:15 PM EST Images from the original note were not included. [facility] [place] [facility] SECTION OF HEART FAILURE and CARDIAC TRANSPLANT MEDICINE OUTPATIENT VISIT DATE September 02, 2022 OUTPATIENT VISIT TYPE Established Patient PRIMARY CARE PHYSICIAN: Miguelina Clemente [address] [place] [address] CHIEF COMPLAINT: Feeling well NURSING INTAKE (Patient s concerns and/or recent hospitalizations/ER visits): HF Nursing Assessment: Interim Hospitalizations and/or ER visits:no Chest Pain: no Skipping or irregular heartbeats: no Shortness of breath at rest: no Shortness of breath with activity: yes Cough: occasionally Waking up in the middle of the night gasping for air: no Lightheadedness or dizziness: a little Feeling like you are going to pass out: no Actually passing out: no Poor energy level: no Unintentional weight gain: no Unintentional weight loss: no Swelling in your legs,feet, abdomen: yes feet and legs Filling up quickly when you eat: yes HISTORY OF PRESENT ILLNESS: 87 yo male with pmh of hypertension, CKD stage 3b, hypothyroidism, and HFpEF who presents for further evaluation of her HFpEF. She was diagnosed with HFpEF in 04/2020 when she presented to her senior programmer with peripheral edemarequiring furosemide. Her ntprobnp had increased to 400 to > 1000. She did not understand the diagnosis at that time but after doing research, she set up an appointment with Dr. Alfred for furtherevaluation. Her probnp continued to be elevated despite the addition of diuretic. They discussed potential use of SGLT2i but wanted to discuss with her physicians first. Over the past 2-3 years, she has noticed increased dyspnea on exertion when going up inclines and stairs. She is able to go up a flight of stairs but then must catch her breath. She must stop half way up a hill due to shortness of breath. She has had labile hypertension since her 50's. She has had side effects to traditional BP medications and is now on a combination of labetalol and clonidine patch. She was trialed on ARB but there was a significant decrease in her eGFR. Renal duplex did not show any hemodynamic significant stenosis in either of the renal arteries. She currently reports better BP control at home with average SBP in 120-130's and DBP in the 70-80 range. However, her blood po ressures are typically significantly elevated during her clinic visits. Since her last visit, she underwent 24 ambulatory BP monitoring which showed uncontrolled hypertension. She denies any orthopnea or Pnd. PAST MEDICAL HISTORY Diagnosis Date Breast cancer (HCC) 09/[address] Wood right ER positive s/p surgery/radiation and AI Collagenous colitis 07/30/2017 On biopsy 2012. Diarrhea hx of colitis Diffuse cystic mastopathy Dyspareunia Essential hypertension H/O complete eye exam 03/13/2011 no retinopathy detected -both eyes - [facility] [place] - return in 1 year - Dr. Ruby hair thinning sees Dr Choudhary Hormone replacement therapy (HRT) 1974-present stopped by 09/2011 hx of low vitamin D treated 08/2007 20.4 recheck only 23 06/25 improved to 54 PMH - PAST MEDICAL HISTORY OF cardiac arrhythmia- resolved with change in medication Stage 3 chronic kidney disease (HCC) 11/22/2019 Symptomatic states associated with artificial menopause 1974 THBSO for fibroids age 40 Vaginal atrophy 08/2015 offered vag DHEA Vaginismus for PT PAST SURGICAL HISTORY Procedure Laterality Date APPENDECTOMY BREAST BIOPSY CORE 04/16/2009 right breast stereo core biopsy BX BREAST NEEDLE CORE W/O IMAGING GUIDANCE SPX 04/02/2008 right breast stereo core biopsy BX/EXC LYMPH NODE OPEN DEEP AXILLARY NODE 10/30/2011 Right NL PM/SLNs CATARACT EXTRACTION HX Bilateral 09/04, 12/06 COLONOSCOPY FLX DX W/COLLJ SPEC WHEN PFRMD 09/08/2013 Colonoscopy MASTECTOMY, PARTIAL Right 10/30/2011 Right NL PM/SLNs PAST SURGICAL HISTORY OF bilat vein stripping PAST SURGICAL HISTORY OF Left 1991 left breast Atypical hyperplasia PAST SURGICAL HISTORY OF excision skin cancer TOTAL ABDOMINAL HYSTERECT W/WO RMVL TUBE OVARY early 1970's Hysterectomy, CAROL, due to fibroids. SOCIAL HISTORY Social History Tobacco Use Smoking status: Former Packs/day: 1.00 Years: 12.00 Pack years: 12.00 Types: Cigarettes Quit date: 01/19/1967 Years since quittin.6 Smokeless tobacco: Never Vaping Use Vaping Use: Never used Substance Use Topics Alcohol use: Yes Alcohol/week: 5.0 - 7.0 standard drinks Types: 5 - 7 Glasses of Wine (5oz) per week Drug use: No FAMILY HISTORY Problem Relation Age of Onset Alzheimer's Disease Mother hypertension/stroke d89 Hypertension Mother Stroke Mother Heart Father heart failure, d 72 other (emphseyma) Sister d 59 other (healthy) Daughter other (healthy) Daughter other (healthy) Son Breast Cancer Maternal Aunt ALLERGIES: ALLERGIES Allergen Reactions Scopolamine Mental Status Change Hallucinations Amlodipine Other: See Comments Significant swelling even on 2.5 mg per day. Hctz [Thiazides] Contraindication-Medical Surgical Hyponatremia at 12.5 mg. Hydralazine Intolerance nausea Iron GI Upset CAN TAKE SLO-IRON Lipitor [Atorvastat* Myalgia Losartan Other: See Comments BRIGHT with elevated potassium and creatinine. Spironolactone Intolerance Blood pressure went up Talwin [Pentazocine* Mental Status Change HALLUCINATIONS Verapamil Hcl GI Upset constipation CURRENT MEDICATIONS: minoxidil (LONITEN) 2.5 mg tablet 1 tablet a day levothyroxine (SYNTHROID) 88 mcg tablet Take 1 tablet by mouth once daily. cloNIDine TTS (CATAPRES-TTS) 0.1 mg/24 hr Apply 1 Patch as directed one time a week. furosemide (LASIX) 20 mg tablet Take 1 tablet by mouth every Wednesday,Wednesday,Wednesday (0600). labetalol (TRANDATE) 200 mg tablet Take 1 tablet by mouth twice daily. Ferrous Sulfate (SLOW FE) 142 mg (45 mg iron) TbER Take 1 tablet by mouth two times a week. MULTIVITAMIN ORAL Take 1 tablet by mouth once daily. Melatonin 5 mg cap Take 1 capsule by mouth at bedtime as needed. Cholecalciferol, Vitamin D3, 50 mcg (2,000 unit) cap Take 1 capsule by mouth once daily. biotin 5 mg tab Take 5 mg by mouth once daily. canagliflozin (INVOKANA) 100 mg tab Take 1 tablet by mouth daily with breakfast. ketoconazole (NIZORAL) 2 % shampoo Use to wash face and scalp two times a week. Lather and leave infor 3-5 minutes before rinsing. REVIEW OF SYSTEMS: CONSTITUTION: HEENT: Negative for: Hearing loss, Nosebleeds, Mouth sores, Trouble swallowing, Dry mouth RESPIRATORY: Positive for: Difficulty breathing Negative for: Cough GASTROINTESTINAL: Positive for: Diarrhea Negative for: Melena, Nausea, Abdominal distention and Early satiety MUSCULOSKELETAL: Negative for: Arthralgias, Myalgias NEUROLOGICAL: Negative for: Headaches, Dizziness SKIN: Negative for: Rash EYES: Negative for: Vision disturbance CARDIOVASCULAR: Negative for: Chest pain, Leg swelling, Arrhythmia, Presyncope GENITOURINARY: Negative for: Difficulty urinatiing PATIENT ENTERED DATA: No flowsheet data found. PHQ-9 12/09/2011 07/10/2020 07/10/2020 Score 8 7 7 PROMIS Global Health - (T-Scores - the mean of general population = 50. Five points is a clinicallymeaningful difference.) 04/06/2018 07/10/2020 07/10/2020 Physical T-Score 44.9 42.3 42.3 Mental T-Score 45.8 38.8 38.8 PHYSICAL EXAMINATION: BP 154/75 (BP Site: Left Arm, BP Position: Sitting, BP Cuff Size: Regular Adult) Pulse 70 Resp 15 Ht 168.9 cm (5' 6.5 ) Wt 60.3 kg (133 lb) SpO2 97% BMI 21.15 kg/m General: Well appearing, in no acute distress. Skin: No clubbing, no cyanosis. Eyes: Extra ocular movements intact Oropharynx: Teeth in good repair. Neck: No jugular venous distention, no carotid bruits, carotids have a normal upstroke, no palpablethyromegaly. Lungs: Clear to auscultation bilaterally, no wheezing or rhonchi. Heart: Regular rhythm, PMI not displaced, S1, S2 normal, no S3, no S4, no heaves, no rub and no murmur. Abdomen: Soft, nontender, bowel sounds normal, no palpable organomegaly, no bruits. Extremities: No peripheral edema . Grade 2/4 distal pulses bilaterally. Neuro: Oriented to person, place and time, alert, cooperative, gait coordinated. CARDIOVASCULAR MEDICINE TESTING: I have personally reviewed the 24 ambulatory BP monitoring. IMPRESSION: 87 yo male with pmh of hypertension, CKD stage 3b, hypothyroidism, and HFpEF who presents for further evaluation of her HFpEF. 1. HFpEF (chronic diastolic heart failure) - LVEF 60%, normal wall thickness, normal LA size (27 ml/m2) 2. Hypertension - poorly controlled 3. Hypothyroidism 4. CKD stage 3b (cr 1.36 with eGFR of 36) Ms. Evans presents for evaluation of her HFpEF. She has been symptomatic from HFpEF and has a persistently elevated NTprobnp. Her ECG does not significant LVH or low voltage and her echocardiogram from 2019 does not show any overt cardiac remodeling. She has NYHA class IIIa symptoms when dealing with inclines. Given her NTprobnp, she started empagliflozin. Some diarrhea but now tolerating. Will plan to start indapamide for her hypertension and use Furosemide as needed. Recommendations: 1. Furosemide as needed. 2. Start indapamide 1.25mg daily. 3. Return in 3 months with RONNIE and 6 months with me. I personally interviewed, confirmed and edited the above information as obtained by others I personally spent 30 minutes in total time involved in the management and care of this patient. Wediscussed natural history of disease, current treatment options, and future potential treatment options. We discussed diet, exercise, other non-medical management as above. William Bautista MD [facility] Section Of Heart Failure and Cardiac Transplant Medicine [facility] [place] [facility] Desk [id number] [place] [address] documented in this encounterMercy Health [facility] Hospital10-20-2022 Miscellaneous Notes* Telephone Encounter - Megan Sanchez RN - 08/06/2022 1:10 PM EDT Contacted pt. Notified pt that she would need an office visit as she has not been seen since 2018. Let her know she can contact her PCP to see if they would be able to fill this for her. She states she will call the PCP at this time. * Telephone Encounter - Nadja Becerra - 08/06/2022 12:02 PM EDT Pt calling for a refill on her Ipratropium .06% spray. I did not see it on med list. Thank you! documented in this encounterMercy [facility] Hospital10-05-2022 Miscellaneous Notes* Telephone Encounter - Allie Choudhary MD - 07/22/2022 5:36 PM EDT Zenaida Evans is a 87 year old female Refilled oral minoxidil 1.25 a day Allie Choudhary MD documented in this encounterMercy Health [facility] Hospital09-29-2022 History of Present illness Narrative* Miguelina Clemente MD - 07/16/2022 11:47 AM EDT Patient presents with: Follow Up States was at [facility] and looked into the water. [facility] did look into it earlier. [facility]. Some of the chemicals are: Benzene (discussed possible effect on bone marrow AML, CLL) Tetrachloroethylene (discussed acute toxicity, neuro, pulmonary and GI) Trichloroethylene Vinyl Chloride (liver cancer). Discussed and will check in with them. States blood pressure at home has been very good. Did see Exec. Creative Director who ran a 24 hour blood pressure. Higher than expected. Reviewed average around 165. States side effect from Jardiance is diarrhea. Started taking it and 2 days later, significant diarrhea. Thought because of problems with colitis. Backed off the jardiance. Had colitis medication andheld jardiance. When restarted jardiance got diarrhea again. If takes antidiarrheal could take it. Regarding depression. Is a little down because is declining. He wants to go places. States only took about 4 jardiance in the last week. BP 177/77 Pulse 68 Temp 36.7 C (98 F) (Oral) Wt 62.3 kg (137 lb 4 oz) SpO2 97% BMI 22.32 kg/m Trubp above. No carotid bruits Lungs clear to auscultation bilaterally Cardiovascular regular rate and rhythm without murmurs rubs or gallops Ext 1+ edema. ASSESSMENT/PLAN: 1. Encounter for immunization - ICD9: V03.89, ICD10: Z23 (primary diagnosis) - PFIZER-BIONTECH COVID-19 BIVALENT BOOSTER VACCINE, AGE 12+ YR 2. 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 disease, or chronic kidney disease (HCC) - ICD9: 404.91, 428.9, 585.9, ICD10: I13.0 Will try change to Invokana hoping to have fewer gi side effects. - CANAGLIFLOZIN 100 MG TABLET - BASIC METABOLIC PNL Return in about 3 months (around 10/15/2022). Miguelina Clemente MD documented in this encounterMercy Health [facility] Hospital08-15-2022 History of Present illness Narrative* Dennys Guzman MD - 06/01/2022 10:01 AM EDT Ambulatory Blood Pressure Monitoring (ABPM) Report Patient: Zenaida Evans : 1935 Referring Physician: William Bautista MD Date of Recordin05/22/22 Patient s current medications as in EPIC at time of report: empagliflozin (JARDIANCE) 10 mg tablet Take 1 tablet by mouth daily with breakfast. ketoconazole (NIZORAL) 2 % shampoo Use to wash face and scalp two times a week. Lather and leave infor 3-5 minutes before rinsing. levothyroxine (SYNTHROID) 88 mcg tablet Take 1 tablet by mouth once daily. minoxidil (LONITEN) 2.5 mg tablet cloNIDine TTS (CATAPRES-TTS) 0.1 mg/24 hr Apply 1 Patch as directed one time a week. furosemide (LASIX) 20 mg tablet Take 1 tablet by mouth every Wednesday,Wednesday,Wednesday (0600). labetalol (TRANDATE) 200 mg tablet Take 1 tablet by mouth twice daily. Ferrous Sulfate (SLOW FE) 142 mg (45 mg iron) TbER Take 1 tablet by mouth two times a week. Lmefol [id number] (CEREFOLIN NAC, ALGAL OIL,) 6 mg-600 mg- 2 mg- 90.314 mg tab Take 1 tablet by mouth once daily. MULTIVITAMIN ORAL Take 1 tablet by mouth once daily. Melatonin 5 mg cap Take 1 capsule by mouth at bedtime as needed. Cholecalciferol, Vitamin D3, (VITAMIN D-3) 2,000 unit cap Take 1 capsule by mouth once daily. biotin 5 mg tab Take 5 mg by mouth once daily. Indication for ABPM: suspected white coat hypertension Recommended Consensus Standards for 24 hr ambulatory blood pressure measurements* Successful readings 52 (72%) Average 24 hour Blood Pressure 165/83 mmHg ?125/75 mmHg * Average Daytime Blood Pressure 165/84 mmHg ?130/80 mmHg * Average Night-time (sleep) Blood Pressure 166/80 mmHg ?110/65 mmHg * Nocturnal Dipping Effect -0.6 % 10%-20% *2017 ACC/AHA Guideline for the Prevention, Detection, Evaluation, and Management of High Blood Pressure in Adults: A Report of the [place] [employer] [employer] Task Force on Clinical Practice Guidelines. Hypertension. 2018 Theo;71(6):a59-d328. Epub 2016Aug 30. The ABPM should be repeated if the following criteria are not met: 24 hr recording with ?70% of expected measurements, 20 valid awake measurements, 7 valid asleep measurements Final Impression: Elevated average blood pressures at all time periods on 24 hour ambulatory blood pressure monitoring. Night time reverse dipping Patient event form was reviewed - no events reported A copy of this report will be sent to referring physician via EMR. A copy of the full report with raw data and all individual readings will be scanned into [employer], which can be reviewed under scanned documents. Dennys Guzman MD documented in this encounterMercy Health [facility] Hospital08-01-2022 Instructions* Patient Instructions* William Bautista MD - 05/18/2022 10:27 AM EDT Thank you for visiting the [facility]. Here are your instructions. I'm concerned your hypertension has caused heart stiffening. We need to check you blood pressures over 24 hours to assess if your blood pressure fluctuates a fair amount. Also, we will start Jardiance to see if this can help reduce the pressure in your heart and improve your shortness of breath. 1. Start Jardiance, 1 tablet per day. Our pharmacy will call to see if there is any authorization required. Please check labs 1 week after starting the medication. 2. We will arrange for a 24 hour blood pressure monitor. 3. Return in 3 months. Please call with questions or concerns. Office: [phone] William Bautista MD documented in this encounter[facility]22 History of Present illness Narrative* William Bautista MD - 05/18/2022 9:30 AM EDT Images from the original note were not included. Heart and Vascular [place] [facility] SECTION OF HEART FAILURE and CARDIAC TRANSPLANT MEDICINE OUTPATIENT VISIT DATE May 18, 2022 OUTPATIENT VISIT TYPE Consultation PRIMARY CARE PHYSICIAN: Miguelina Clemente [address] [place] [address] CHIEF COMPLAINT: Shortness of breath NURSING INTAKE (Patient s concerns and/or recent hospitalizations/ER visits): Zenaida Evans is being referred by Dr. Clemente for a diagnosis of HFpEF and further management. PMHx of HTN; anemia; CKD; hypothyroidism. Exercise: aerobic and free weights 3 x week. Diet: monitors sodium intake HF Nursing Assessment: Interim Hospitalizations and/or ER visits: no Chest Pain: no Skipping or irregular heartbeats: no Shortness of breath at rest: no Shortness of breath with activity: yes, with inclines/stairs, or rushing Cough: no Waking up in the middle of the night gasping for air: no Lightheadedness or dizziness: no Feeling like you are going to pass out: no Actually passing out: no Poor energy level: no Unintentional weight gain: no Unintentional weight loss: yes, past 18 months has lost about 25 lbs Swelling in your legs,feet, abdomen: yes, legs, ankles, and feet Filling up quickly when you eat: no HISTORY OF PRESENT ILLNESS: 86 yo male with pmh of hypertension, CKD stage 3b, hypothyroidism, and HFpEF who presents for further evaluation of her HFpEF. She was diagnosed with HFpEF in 04/2020 when she presented to her senior programmer with peripheral edemarequiring furosemide. Her ntprobnp had increased to 400 to > 1000. She did not understand the diagnosis at that time but after doing research, she set up an appointment with Dr. Alfred for furtherevaluation. Her probnp continued to be elevated despite the addition of diuretic. They discussed potential use of SGLT2i but wanted to discuss with her physicians first. Over the past 2-3 years, she has noticed increased dyspnea on exertion when going up inclines and stairs. She is able to go up a flight of stairs but then must catch her breath. She must stop half way up a hill due to shortness of breath. She has had labile hypertension since her 50's. She has had side effects to traditional BP medications and is now on a combination of labetalol and clonidine patch. She was trialed on ARB but there was a significant decrease in her eGFR. Renal duplex did not show any hemodynamic significant stenosis in either of the renal arteries. She currently reports better BP control at home with average SBP in 120-130's and DBP in the 70-80 range. However, her blood po ressures are typically significantly elevated during her clinic visits. PAST MEDICAL HISTORY Diagnosis Date Breast cancer (HCC) 09/[address] Nina moraes ER positive s/p surgery/radiation and AI Collagenous colitis 07/30/2017 On biopsy 2012. Diarrhea hx of colitis Diffuse cystic mastopathy Dyspareunia Essential hypertension H/O complete eye exam 03/13/2011 no retinopathy detected -both eyes - [facility] - return in 1 year - Dr. Ruby hair thinning sees Dr Choudhary Hormone replacement therapy (HRT) 1974-present stopped by 09/2011 hx of low vitamin D treated 08/2007 20.4 recheck only 23 9/08 improved to 54 PMH - PAST MEDICAL HISTORY OF cardiac arrhythmia- resolved with change in medication Stage 3 chronic kidney disease (HCC) 11/22/2019 Symptomatic states associated with artificial menopause 1974 THBSO for fibroids age 40 Vaginal atrophy 08/2015 offered vag DHEA Vaginismus for PT PAST SURGICAL HISTORY Procedure Laterality Date APPENDECTOMY BREAST BIOPSY CORE 04/16/2009 right breast stereo core biopsy BX BREAST NEEDLE CORE W/O IMAGING GUIDANCE SPX 04/02/2008 right breast stereo core biopsy BX/EXC LYMPH NODE OPEN DEEP AXILLARY NODE 10/30/2011 Right NL PM/SLNs CATARACT EXTRACTION HX Bilateral 09/04, 12/06 COLONOSCOPY FLX DX W/COLLJ SPEC WHEN PFRMD 09/08/2013 Colonoscopy MASTECTOMY, PARTIAL Right 10/30/2011 Right NL PM/SLNs PAST SURGICAL HISTORY OF bilat vein stripping PAST SURGICAL HISTORY OF Left 1991 left breast Atypical hyperplasia PAST SURGICAL HISTORY OF excision skin cancer TOTAL ABDOMINAL HYSTERECT W/WO RMVL TUBE OVARY early 1969' Hysterectomy, CAROL, due to fibroids. SOCIAL HISTORY Social History Tobacco Use Smoking status: Former Smoker Packs/day: 1.00 Years: 12.00 Pack years: 12.00 Types: Cigarettes Quit date: 01/19/1967 Years since quittin.3 Smokeless tobacco: Never Used Vaping Use Vaping Use: Never used Substance Use Topics Alcohol use: Yes Alcohol/week: 5.0 - 7.0 standard drinks Types: 5 - 7 Glasses of Wine (5oz) per week Drug use: No FAMILY HISTORY Problem Relation Age of Onset Alzheimer's Disease Mother hypertension/stroke d89 Hypertension Mother Stroke Mother Heart Father heart failure, d 72 other (emphseyma) Sister d 59 other (healthy) Daughter other (healthy) Daughter other (healthy) Son Breast Cancer Maternal Aunt ALLERGIES: ALLERGIES Allergen Reactions Scopolamine Mental Status Change Hallucinations Amlodipine Other: See Comments Significant swelling even on 2.5 mg per day. Hctz [Thiazides] Contraindication-Medical Surgical Hyponatremia at 12.5 mg. Hydralazine Intolerance nausea Iron GI Upset CAN TAKE SLO-IRON Lipitor [Atorvastat* Myalgia Losartan Other: See Comments BRIGHT with elevated potassium and creatinine. Spironolactone Intolerance Blood pressure went up Talwin [Pentazocine* Mental Status Change HALLUCINATIONS Verapamil Hcl GI Upset constipation CURRENT MEDICATIONS: ketoconazole (NIZORAL) 2 % shampoo Use to wash face and scalp two times a week. Lather and leave infor 3-5 minutes before rinsing. levothyroxine (SYNTHROID) 88 mcg tablet Take 1 tablet by mouth once daily. minoxidil (LONITEN) 2.5 mg tablet cloNIDine TTS (CATAPRES-TTS) 0.1 mg/24 hr Apply 1 Patch as directed one time a week. furosemide (LASIX) 20 mg tablet Take 1 tablet by mouth every Wednesday,Wednesday,Wednesday (0600). labetalol (TRANDATE) 200 mg tablet Take 1 tablet by mouth twice daily. Ferrous Sulfate (SLOW FE) 142 mg (45 mg iron) TbER Take 1 tablet by mouth two times a week. Lmefol Sw-kmyjjz-[id number]-algal (CEREFOLIN NAC, ALGAL OIL,) 6 mg-600 mg- 2 mg- 90.314 mg tab Take 1 tablet by mouth once daily. MULTIVITAMIN ORAL Take 1 tablet by mouth once daily. Melatonin 5 mg cap Take 1 capsule by mouth at bedtime as needed. Cholecalciferol, Vitamin D3, (VITAMIN D-3) 2,000 unit cap Take 1 capsule by mouth once daily. biotin 5 mg tab Take 5 mg by mouth once daily. REVIEW OF SYSTEMS: CONSTITUTION: Positive for: Recent weight change Negative for: Fever and Night sweats HEENT: Positive for: Hearing loss RESPIRATORY: Positive for: Difficulty breathing Negative for: Cough GASTROINTESTINAL: Positive for: Nausea Negative for: Melena, Diarrhea, Abdominal distention and Early satiety MUSCULOSKELETAL: Positive for: Arthralgias Negative for: Myalgias NEUROLOGICAL: Negative for: Headaches and Dizziness SKIN: Negative for: Rash EYES: Negative for: Visual disturbance CARDIOVASCULAR: Positive for: Leg swelling Negative for: Chest pain, Arrhythmia and Pre-syncope GENITOURINARY: Negative for: Difficulty urinating PATIENT ENTERED DATA: No flowsheet data found. PHQ-9 12/09/2011 07/10/2020 07/10/2020 Score 8 7 7 PROMIS Global Health - (T-Scores - the mean of general population = 50. Five points is a clinicallymeaningful difference.) 04/06/2018 07/10/2020 07/10/2020 Physical T-Score 44.9 42.3 42.3 Mental T-Score 45.8 38.8 38.8 PHYSICAL EXAMINATION: BP 187/89 (BP Site: Left Arm, BP Position: Sitting, BP Cuff Size: Regular Adult) Pulse 64 Ht 167.6 cm (5' 6 ) Wt 62.3 kg (137 lb 6.4 oz) SpO2 99% BMI 22.18 kg/m General: Well appearing, in no acute distress. Skin: No clubbing, no cyanosis. Eyes: Extra ocular movements intact Oropharynx: Teeth in good repair. Neck: No jugular venous distention, no carotid bruits, carotids have a normal upstroke, no palpablethyromegaly. Lungs: Clear to auscultation bilaterally, no wheezing or rhonchi. Heart: Regular rhythm, PMI not displaced, S1, S2 normal, no S3, no S4, no heaves, no rub and no murmur. Abdomen: Soft, nontender, bowel sounds normal, no palpable organomegaly, no bruits. Extremities: trace peripheral edema . Grade 2/4 distal pulses bilaterally. Neuro: Oriented to person, place and time, alert, cooperative, gait coordinated. CARDIOVASCULAR MEDICINE TESTING: I have personally reviewed the Electrocardiogram, Laboratory Testing and Echocardiogram. Echo 11/23/2019 CONCLUSIONS: - Technically difficult exam due to suboptimal positioning. - Exam indication: Abnormal Cardiac Biomarkers - The left ventricle is normal in size. Left ventricular systolic function is normal. EF = 60 5% (2D biplane) Normal left ventricular diastolic function. - The right ventricle is normal in size. Right ventricular systolic function is normal. - Exam was compared with the prior echocardiographic exam performed on 08/21/16 STRESS. Similar rest findings. Echo 10/16/2019 NT Pro BNP Date Value Ref Range Status 08/28/2021 1,228 (H) <450 pg/mL Final IMPRESSION: NYHA Functional Class: III Stage: C heart failure H2FpEF Score: 3 HFpEF Phenomap Prediction: 3 (92%)- Carol MW, Aung KV, Benja C, Jordin M, Canelo TRUONGW, Patti D, Jonathan J, Cordelia MURRAY, Malinda A. Phenomapping of patients with heart failure with preserved ejection fraction using machine learning-based unsupervised cluster analysis. Eur J Heart Fail. 2020 Oct;22(1):148-158. doi: 10.1002/ejhf.1621. Epub 2018Aug 07. PMID: [id number]. PLAN AND RECOMMENDATIONS: 86 yo male with pmh of hypertension, CKD stage 3b, hypothyroidism, and HFpEF who presents for further evaluation of her HFpEF. 1. HFpEF (chronic diastolic heart failure) - LVEF 60%, normal wall thickness, normal LA size (27 ml/m2) 2. Hypertension - poorly controlled 3. Hypothyroidism 4. CKD stage 3b (cr 1.36 with eGFR of 36) Ms. Evans presents for evaluation of her HFpEF. She has been symptomatic from HFpEF and has a persistently elevated NTprobnp. Her ECG does no significant LVH or low voltage and her echocardiogram [id number] does not show any overt cardiac remodeling. She has NYHA class IIIa symptoms when dealing withinclines. Given her NTprobnp, will start SGLT2i. We had a discussion about urogenital infections. 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 We will also assess ambulatory blood pressure monitoring to assess for the large discrepancy between her home and office blood pressures. Will recheck cardiac biomarkers aft er starting SGLT2i as well as repeat an echocardiogram on her next visit. Recommendations: 1. Start empagliflozin 10mg daily. 2. Labs 1 week after starting. 3. 24 ambulatory blood pressure monitoring. 4. Return in 3 months. I personally interviewed, confirmed and edited the above information as obtained by others I personally spent 75 minutes in total time involved in the management and care of this patient. Wediscussed natural history of disease, current treatment options, and future potential treatment options. We discussed diet, exercise, other non-medical management as above. William Bautista MD [facility] Section Of Heart Failure and Cardiac Transplant Medicine Heart [facility] Vascular [place] [facility] Desk [id number] [place] [address] documented in this encounterMer[facility]07-28-2022 Instructions* Patient Instructions* Jodi Hatfield RN - 05/14/2022 10:43 AM EDT Zenaida Evans is a 86 year old female, post breast cancer, off anastrozole for over a year, hypothyroidism 1. 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 Hypovitaminosis D 3. Seborrheic dermatitis - controlled 4.Breast cancer treated And on antiestrogen 5. 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 Verruca vulgaris on right hand Plan: Continue: - Hairmax 2-3 times per week, - Vitamin D 2000 units daily - Biotin forte 3 mg once daily - Ketoconazole shampoo twice a week - By mouth minoxidil to 1.25 mg daily - Okay to stop head and shoulders shampoo - Labs: CBC with Diff reviewed, CMP ordered - use lanolin oil on nails when dry (winter)- dry broken finger nails - purchase fine nail file- file in one direction to keep smooth then apply lanolin oil Verruca Vulgaris: Cryosurgery of non-malignant lesion(s) UNIVERSAL PROTOCOL / SAFETY CHECKLIST Procedure to be Performed: Allie Choudhary MD Sign In: A Moment of CARE was completed. Personnel directly involved with the procedure wore the appropriate PPE (Personal Protective Equipment). Patient/Surrogate Stated/Verified: PATIENT VERIFIED(optional for EMERGENT procedures): Patient name, Date of , Relevant allergies and The intended procedure Time Out Communication: Intended patient and procedure match the source documents. Consent documented and matches the intended procedure. Sign Out: SIGN OUT (optional for EMERGENT procedures): Post-procedure follow-up management communicated and Plan of Care Visit completed when applicable. Clinical Derm Staff: Dr. Allie Choudhary Cryosurgery performed with Liquid Nitrogen via cryostat spray gun to Warts. 2 lesion(s) treated. Patient tolerated well. Wound care instructions provided, pt verbalizes understanding. RTC: 6 months, lentigines removal at patients earliest convienence documented in this encounterMer[facility]07-28-2022 History of Present illness Narrative* Allie Choudhary MD - 05/14/2022 10:30 AM EDT LV: 01/02/21 Established patient CC: TE/[facility] derm Zenaida Evans is a 86 year old female here to follow up on her TE/[facility] - hair is improved -does see less shedding than previous visits - Pruritus with rogaine use - stopped 08/17/20 -Pruritus when using H&S shampoo - thyroid within normal limits. Following with Dr. Pena in endocrinology - off of anastrozole for breast cancer. Has not taken for a couple years -on oral minoxidil 2.5 mg/day - started 09/26/20, decreased to 1.25 mg daily after last appointment(01/02/21) -Notes growing facial hair -Does think the scalp improvement is worth having to deal with the facial hair Current tx: - oral minoxidil 1.25 mg daily - Vitamin D3 2,000 units daily - Biotin forte 3 mg once daily - ketoconazole shampoo twice a week - Needs refill - MVI - iron supplement Past tx: - aldactone - premarin stopped after breast ca diagnosis -rogaine 5% every other day (pruritic) - Hairmax 2-3 times per week (stopped 09/2020) -Stopped H&S shampoo due to increased pruritis PAST MEDICAL HISTORY Diagnosis Date Breast cancer (HCC) 09/[address] Nina moraes ER positive s/p surgery/radiation and AI Collagenous colitis 07/30/2017 On biopsy 2012. Diarrhea hx of colitis Diffuse cystic mastopathy Dyspareunia Essential hypertension H/O complete eye exam 03/13/2011 no retinopathy detected -both eyes - [facility] - return in 1 year - Dr. Ruby hair thinning sees Dr Choudhary Hormone replacement therapy (HRT) 1974-present stopped by 09/2011 hx of low vitamin D treated 08/2007 20.4 recheck only 23 06/25 improved to 54 PMH - PAST MEDICAL HISTORY OF cardiac arrhythmia- resolved with change in medication Stage 3 chronic kidney disease ([facility]) 11/22/2019 Symptomatic states associated with artificial menopause 1974 THBSO for fibroids age 40 Vaginal atrophy 08/2015 offered vag DHEA Vaginismus for PT PSH: Hysterectomy - remotely - 30-40 y/ago Breast cancer Current Outpatient Medications Medication Sig Dispense Refill levothyroxine (SYNTHROID) 88 mcg tablet Take 1 tablet by mouth once daily. 90 tablet 1 minoxidil (LONITEN) 2.5 mg tablet cloNIDine TTS (CATAPRES-TTS) 0.1 mg/24 hr Apply 1 Patch as directed one time a week. 12 Patch 3 furosemide (LASIX) 20 mg tablet Take 1 tablet by mouth every Wednesday,Wednesday,Wednesday (0600). 36 tablet 3 labetalol (TRANDATE) 200 mg tablet Take 1 tablet by mouth twice daily. 180 tablet 3 Ferrous Sulfate (SLOW FE) 142 mg (45 mg iron) TbER Take 1 tablet by mouth two times a week. Lmefol Ls-ufbwld-xkY70-algal (CEREFOLIN NAC, ALGAL OIL,) 6 mg-600 mg- 2 mg- 90.314 mg tab Take 1 tablet by mouth once daily. 90 tablet 4 ketoconazole (NIZORAL) 2 % shampoo Use to wash face and scalp two times a week. Lather and leave infor 3-5 minutes before rinsing. 240 mL 11 MULTIVITAMIN ORAL Take 1 tablet by mouth once daily. aspirin, enteric coated (ECOTRIN LOW STRENGTH) 81 mg EC tablet Take 1 tablet by mouth once daily. (Patient not taking: Reported on 12/16/2021 ) Melatonin 5 mg cap Take 1 capsule by mouth at bedtime as needed. Cholecalciferol, Vitamin D3, (VITAMIN D-3) 2,000 unit cap Take 1 capsule by mouth once daily. biotin 5 mg tab Take 5 mg by mouth once daily. No current facility-administered medications for this visit. Component Latest Ref Rng & Units 02/17/2022 04/17/2022 WBC 3.70 - 11.00 k/uL 3.58 (L) RBC 3.90 - 5.20 m/uL 3.21 (L) Hemoglobin 11.5 - 15.5 g/dL 10.4 (L) Hematocrit 36.0 - 46.0 % 31.7 (L) MCV 80.0 - 100.0 fL 98.8 MCH 26.0 - 34.0 pg 32.4 MCHC 30.5 - 36.0 g/dL 32.8 RDW-CV 11.5 - 15.0 % 13.0 Platelet Count 150 - 400 k/uL 194 MPV 9.0 - 12.7 fL 10.3 Neut% % 46.6 Abs Neut (ANC) 1.45 - 7.50 k/uL 1.67 Lymph% % 39.1 Abs Lymph 1.00 - 4.00 k/uL 1.40 [place]% % 11.2 Abs [place] <0.87 k/uL 0.40 Eosin% % 2.2 Abs Eosin <0.46 k/uL 0.08 Baso% % 0.6 Abs Baso <0.11 k/uL <0.03 Immature Gran % % 0.3 IMMATURE GRANS (ABS) <0.10 k/uL <0.03 NRBC /100 WBC 0.0 Absolute nRBC <0.01 k/uL <0.01 DTYPE Auto Iron 41 - 186 ug/dL 102 TIBC 232 - 386 ug/dL 332 Transferrin Saturation 15.0 - 57.0 % 30.7 Ferritin 14.7 - 205.1 ng/mL 39.9 39.0 Vitamin B12 232-1,245 pg/mL 801 Component Latest Ref Rng & Units 08/12/2020 Protein, Total 6.3 - 8.0 g/dL 6.3 Albumin 3.9 - 4.9 g/dL 4.0 Calcium 8.5 - 10.2 mg/dL 9.3 Bilirubin, Total 0.2 - 1.3 mg/dL 0.4 Alkaline Phosphatase 34 - 123 U/L 70 AST 13 - 35 U/L 19 Glucose 74 - 99 mg/dL 91 BUN 7 - 21 mg/dL 30 (H) Creatinine 0.58 - 0.96 mg/dL 1.29 (H) Sodium 136 - 144 mmol/L 142 Potassium 3.7 - 5.1 mmol/L 4.6 Chloride 97 - 105 mmol/L 106 (H) CO2 22 - 30 mmol/L 28 Anion Gap 9 - 18 mmol/L 8 (L) ALT 7 - 38 U/L 18 eGFR- 48 eGFR-All Other Races . 39 PE: did exam patient via video General appearance: Aaox3, NAD, pleasant Skin: Skin color, texture, turgor normal Type 1 skin Patient with diffuse thinning white hair and focal areas of dark brown hair, most notable in frontal central scalp. No erythema or scaling appreciated. Density savin I Hair pull: negative No scalp scaling or redness -facial hair on bilateral jaw line near anterior to ears -density improved -eyebrows thicker bilaterally and longer New facial hair growth From oral minoxidil ?/ monitor manidibule- vellus light hair, but forehead temples pigmented terminal hair. -has lost about 20 pounds due to illness over winter - nails dry (happens every winter) - also Ridged and easily fractured - verruca vulgaris on right hand x 2 A/P: Zenaida Evans is a 86 year old female, post breast cancer, off anastrozole for over a year, hypothyroidism 1. 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 Hypovitaminosis D 3. Seborrheic dermatitis - controlled 4.Breast cancer treated And on antiestrogen 5. 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 Verruca vulgaris on right hand Plan: Continue: - Hairmax 2-3 times per week, - Vitamin D 2000 units daily - Biotin forte 3 mg once daily - Ketoconazole shampoo twice a week - By mouth minoxidil to 1.25 mg daily - Okay to stop head and shoulders shampoo - Labs: CBC with Diff reviewed, CMP ordered - use lanolin oil on nails when dry (winter)- dry broken finger nails - purchase fine nail file- file in one direction to keep smooth then apply lanolin oil Verruca Vulgaris: NC Cryosurgery of non-malignant lesion(s) UNIVERSAL PROTOCOL / SAFETY CHECKLIST Procedure to be Performed: Allie Choudhary MD Sign In: A Moment of CARE was completed. Personnel directly involved with the procedure wore the appropriate PPE (Personal Protective Equipment). Patient/Surrogate Stated/Verified: PATIENT VERIFIED(optional for EMERGENT procedures): Patient name, Date of , Relevant allergies and The intended procedure Time Out Communication: Intended patient and procedure match the source documents. Consent documented and matches the intended procedure. Sign Out: SIGN OUT (optional for EMERGENT procedures): Post-procedure follow-up management communicated and Plan of Care Visit completed when applicable. Clinical Derm Staff: Dr. Allie Choudhary Cryosurgery performed with Liquid Nitrogen via cryostat spray gun to Warts. 2 lesion(s) treated. Patient tolerated well. Wound care instructions provided, pt verbalizes understanding. RTC: 6 months, lentigines removal at patients earliest convienence (okay to add on) The documentation for this note was completed by Jodi Hatfield RN acting as scribe for Allie Choudhary MD. I also have reviewed and agree with the assessment and plan as stated above and agree with all of its relevant components. There were no procedures performed during this patient's visit. I spent a total of 25 minutes on the date of service preparing to see the patient, [id number] patient care, completing clinical documentation, obtaining and/or reviewing separately obtained history, performing a medically appropriate examination and counseling and educating the patient/family/career development director Allie Choudhary MD documented in this encounterMer[facility]07-01-2022 History of Present illness Narrative* Rosendo Rodgers MD - 04/17/2022 11:04 AM EDT HISTORY OF PRESENT ILLNESS: Zeniada Evans is a 86 year old female h/o stage 3 CKD. Anemia Labs reviewed. CLINICAL IMPRESSION: Mild anemia likely related to CKD RECOMMENDATION/PLAN: 1. Observe, consider RhEPO if we see drift to below 10 g. Written and verbal health teaching given to patient, patient verbalizes understanding and agrees with treatment plan. PAST MEDICAL HISTORY Diagnosis Date Breast cancer (HCC) 09/[address] Nina moraes ER positive s/p surgery/radiation and AI Collagenous colitis 07/30/2017 On biopsy 2012. Diarrhea hx of colitis Diffuse cystic mastopathy Dyspareunia Essential hypertension H/O complete eye exam 03/13/2011 no retinopathy detected -both eyes - [facility] - return in 1 year - Dr. Ruby hair thinning sees Dr Choudhary Hormone replacement therapy (HRT) 1974-present stopped by 09/2011 hx of low vitamin D treated 08/2007 20.4 recheck only 23 06/25 improved to 54 PMH - PAST MEDICAL HISTORY OF cardiac arrhythmia- resolved with change in medication Stage 3 chronic kidney disease (HCC) 11/22/2019 Symptomatic states associated with artificial menopause 1974 THBSO for fibroids age 40 Vaginal atrophy 08/2015 offered vag DHEA Vaginismus for PT PAST SURGICAL HISTORY Procedure Laterality Date APPENDECTOMY BREAST BIOPSY CORE 04/16/2009 right breast stereo core biopsy BX BREAST NEEDLE CORE W/O IMAGING GUIDANCE SPX 04/02/2008 right breast stereo core biopsy BX/EXC LYMPH NODE OPEN DEEP AXILLARY NODE 10/30/2011 Right NL PM/SLNs CATARACT EXTRACTION HX Bilateral 09/04, 12/06 COLONOSCOPY FLX DX W/COLLJ SPEC WHEN PFRMD 09/08/2013 Colonoscopy MASTECTOMY, PARTIAL Right 10/30/2011 Right NL PM/SLNs PAST SURGICAL HISTORY OF bilat vein stripping PAST SURGICAL HISTORY OF Left 1990 left breast Atypical hyperplasia PAST SURGICAL HISTORY OF excision skin cancer TOTAL ABDOMINAL HYSTERECT W/WO RMVL TUBE OVARY early 1969' Hysterectomy, CAROL, due to fibroids. FAMILY HISTORY Problem Relation Age of Onset Alzheimer's Disease Mother hypertension/stroke d89 Heart Father d 72 other (emphseyma) Sister d 59 other (healthy) Daughter other (healthy) Daughter other (healthy) Son Breast Cancer Maternal Aunt Social History Tobacco Use Smoking status: Former Smoker Packs/day: 1.00 Years: 12.00 Pack years: 12.00 Types: Cigarettes Quit date: 01/19/1966 Years since quittin.2 Smokeless tobacco: Never Used Vaping Use Vaping Use: Never used Substance Use Topics Alcohol use: Yes Alcohol/week: 5.0 - 7.0 standard drinks Types: 5 - 7 Glasses of Wine (5oz) per week Drug use: No ALLERGIES: ALLERGIES Allergen Reactions Scopolamine Mental Status Change Hallucinations Amlodipine Other: See Comments Significant swelling even on 2.5 mg per day. Hctz [Thiazides] Contraindication-Medical Surgical Hyponatremia at 12.5 mg. Hydralazine Intolerance nausea Iron GI Upset CAN TAKE SLO-IRON Lipitor [Atorvastat* Myalgia Losartan Other: See Comments BRIGHT with elevated potassium and creatinine. Spironolactone Intolerance Blood pressure went up Talwin [Pentazocine* Mental Status Change HALLUCINATIONS Verapamil Hcl GI Upset constipation CURRENT OUTPATIENT MEDICATIONS: levothyroxine (SYNTHROID) 88 mcg tablet Take 1 tablet by mouth once daily. minoxidil (LONITEN) 2.5 mg tablet cloNIDine TTS (CATAPRES-TTS) 0.1 mg/24 hr Apply 1 Patch as directed one time a week. furosemide (LASIX) 20 mg tablet Take 1 tablet by mouth every Wednesday,Wednesday,Wednesday (0600). labetalol (TRANDATE) 200 mg tablet Take 1 tablet by mouth twice daily. Ferrous Sulfate (SLOW FE) 142 mg (45 mg iron) TbER Take 1 tablet by mouth two times a week. Lmefol Cc-nuslwf-[id number]-algal (CEREFOLIN NAC, ALGAL OIL,) 6 mg-600 mg- 2 mg- 90.314 mg tab Take 1 tablet by mouth once daily. ketoconazole (NIZORAL) 2 % shampoo Use to wash face and scalp two times a week. Lather and leave infor 3-5 minutes before rinsing. MULTIVITAMIN ORAL Take 1 tablet by mouth once daily. aspirin, enteric coated (ECOTRIN LOW STRENGTH) 81 mg EC tablet Take 1 tablet by mouth once daily. Melatonin 5 mg cap Take 1 capsule by mouth at bedtime as needed. Cholecalciferol, Vitamin D3, (VITAMIN D-3) 2,000 unit cap Take 1 capsule by mouth once daily. biotin 5 mg tab Take 5 mg by mouth once daily. REVIEW OF SYSTEMS: GENERAL: No fever, night sweats, weight loss or malaise. MUSCULOSKELETAL: Negative for joint pain or swelling, back pain or muscle pain. NEUROLOGIC: No history of headaches, syncope, paralysis, seizures or tremors. HEENT: Negative for frequent or significant headaches, no changes in hearing or vision, no nose bleeds or other nasal problems. PSYCH: Negative for sleep disturbance, mood disorder and recent psychosocial stressors. NECK: Negative for lumps, goiter, pain and significant neck swelling. CARDIOVASCULAR: Negative for chest pain, leg swelling, or palpitations. RESPIRATORY: No cough or shortness of breath. GI: Negative for abdominal discomfort, blood in stools or black stools or change in bowel habits, or nausea. : No history of dysuria, frequency or incontinence. SKIN: Negative for lesions, rash or itching. HEMATOLOGY/LYMPHOLOGY: Negative for prolonged bleeding, bruising easily or swollen nodes. ENDOCRINE: Negative for cold or heat intolerance, polyuria, polydipsia and goiter. RHEUMATOLOGIC: neg All other reviewed and negative other than HPI. PHYSICAL EXAMINATION: VITAL SIGNS: BP 134/65 Pulse 76 Temp (Src) 97.2 (Temporal) Resp 20 Ht 5' 5.354 (1.66m) Wt 134 lb (60.8kg) SpO2 98% BMI 22.06 kg/(m^2). GENERAL APPEARANCE: Well appearing, in no acute distress, alert and oriented x3, well-hydrated, well nourished. SKIN: Skin color, texture, turgor normal. No needle tracks, ulcers, rashes or lesions. HEAD: Normocephalic. Pupils are round, equal, reactive to light and accomodation. Mouth clear, no thrush. NECK: Supple, no JVD or lymphadenopathy, thyroid symmetric, normal size, no bruits. NEURO: Intact motor and sensory function in both upper and lower extremities. Oriented x3. EXTREMITIES: Extremities normal. No deformities, edema, or skin discoloration. Good capillary refill. MUSCULOSKELETAL: Muscle strength intact, no joint swelling or deformity. I spent a total of 45 minutes on the date of the service which included preparing to see the patient, [id number] patient care, completing clinical documentation, obtaining and/or reviewing separately obtained history, counseling and educating the patient/family/caregiver, independently interpretin g results (not separately reported) and communicating results to the patient/family/caregiver. Electronically Signed: Rosendo Rodgers MD April 17, 2022 11:04 AM documented in this encounter[facility] History of Present illness Narrative* Miguelina Clemente MD - 04/14/2022 10:09 AM EDT Patient presents with: Follow Up Had appointment with hematology, changed the date. At home highest blood pressure is low 130's. Forgot meds this morning. Ever since diagnosed with congestive heart failure, had some concerns. States the Exec. Creative Director didn't have any significant. Would like to see cardiology clinic for hfpef. Has a number. Also with ckd.Is starting to get more shortness of breath on an incline. Reviewed echo with normal lv systolic and diastolic dysfunction. BP 171/97 Pulse 80 Temp 36.6 C (97.8 F) (Oral) Ht 166.4 cm (5' 5.5 ) Wt 61.2 kg (135 lb) SpO2 97% BMI 22.12 kg/m Component Latest Ref Rng & Units 04/23/2021 06/10/2021 07/07/2021 08/14/2021 12/08/2021 02/17/2022 WBC 3.70 - 11.00 k/uL 4.94 3.99 5.91 4.18 4.20 RBC 3.90 - 5.20 m/uL 3.15 (L) 3.29 (L) 3.40 (L) 3.27 (L) 3.22 (L) Hemoglobin 11.5 - 15.5 g/dL 10.2 (L) 10.9 (L) 11.0 (L) 10.5 (L) 10.3 (L) Hematocrit 36.0 - 46.0 % 30.7 (L) 32.1 (L) 33.9 (L) 31.4 (L) 31.9 (L) MCV 80.0 - 100.0 fL 97.5 97.6 99.7 96.0 99.1 MCH 26.0 - 34.0 pg 32.4 33.1 32.4 32.1 32.0 MCHC 30.5 - 36.0 g/dL 33.2 34.0 32.4 33.4 32.3 RDW-CV 11.5 - 15.0 % 12.2 14.1 12.7 13.1 13.6 Platelet Count 150 - 400 k/uL 201 185 199 200 171 MPV 9.0 - 12.7 fL 10.5 10.1 9.3 9.4 9.7 Neut% % 40.9 48.6 52.2 39.7 40.6 Abs Neut (ANC) 1.45 - 7.50 k/uL 2.01 1.92 3.06 1.65 1.70 Lymph% % 46.6 38.3 30.3 45.9 42.1 Abs Lymph 1.00 - 4.00 k/uL 2.30 1.53 1.79 1.92 1.77 [place]% % 10.9 10.5 11.8 11.5 12.1 Abs [place] <0.87 k/uL 0.54 0.42 0.70 0.48 0.51 Eosin% % 1.2 1.8 5.2 2.4 4.3 Abs Eosin <0.46 k/uL 0.06 0.07 0.31 0.10 0.18 Baso% % 0.4 0.8 0.5 0.5 0.7 Abs Baso <0.11 k/uL <0.03 0.03 0.03 <0.03 0.03 Immature Gran % % 0.2 IMMATURE GRANS (ABS) <0.10 k/uL <0.03 NRBC /100 WBC 0.0 Absolute nRBC <0.01 k/uL <0.01 <0.01 <0.01 <0.01 <0.01 DTYPE Auto Nucleated Reds 0 /100 WBC 0.0 0.0 0.0 0.0 Diff Type Auto Diff Auto Diff Auto Diff Auto Diff Cholesterol, Total <200 mg/dL 178 Triglyceride <150 mg/dL 61 HDL Cholesterol >39 mg/dL 75 LDL Cholesterol <100 mg/dL 91 Non HDL Cholesterol <130 mg/dL 103 Fasting Time hrs 12 VLDL Cholesterol <30 mg/dL 12 TC:HDL Ratio <5.10 2.37 LDL:HDL Ratio <2.54 1.21 Iron 41 - 186 ug/dL 68 TIBC 232 - 386 ug/dL 276 Transferrin Saturation 15 - 57 % 25 Occult Blood, Stool Negative Negative TSH 0.270 - 4.200 uU/mL 2.180 Ferritin 14.7 - 205.1 ng/mL 39.9 No lymphadenopathy in the neck. No carotid bruits. No acute distress. Lungs clear to auscultation bilaterally. Cardiovascular regular rate and rhythm without murmurs rubs or gallops. Extremities no edema. ASSESSMENT/PLAN: 1. Anemia, unspecified type - ICD9: 285.9, ICD10: D64.9 (primary diagnosis) Patient has follow-up with hematology in the next week. - FECAL OCCULT BLOOD TEST 2. 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 disease, or chronic kidney disease (HCC) - ICD9: 404.91, 428.9, 585.9, ICD10: I13.0 Patient did not take medication today. Blood pressures been okay at home. - CONSULT TO CARDIOLOGY patient would like a consultation with the heart [place]. Referred reviewed last echo with normal left ventricular ejection fraction and no evidence of diastolic dysfunction. I believe when she had heart failure it was due to uncontrolled hypertension. We will keep an eye on blood pressure readings at follow-up appointment with hematology. 3. Hypothyroidism, unspecified type - ICD9: 244.9, ICD10: E03.9 Patient would like to switch to generic thyroid medication. Recommend follow-up TSH 6 weeks after the switch. - LEVOTHYROXINE 88 MCG TABLET - TSH BLD Return in about 3 months (around 07/15/2022), or okay for same day or pcp flex slot.. Miguelina Clemente MD documented in this encounterMer[facility]06-07-[facility]22 History of Present illness Narrative* Erwin Meyers MD - 03/24/2022 11:19 AM EDT Post Op L thumb CMC arthroplasty Ms.. Evans is 4 months post op from a L thumb cmc arthroplasty. she reports no pain. she is very pleased with the current progress. No numbness, tingling, fevers or chills. Physical Exam: Incision healing well. Full digital range of motion. Sensation is intact to light touch in all digits. No swelling in the operative wrist. Sensation intact in all digits. Posture of the thumb is excellent. Negative CMC grind for pain or crepitus. 0 degrees of thumb MCP hyperextension. Opposition intact to the base of the small finger. Assessment: 4 months post-op thumb CMC arthroplasty I discussed with Ms.. Evans the treatment and therapy plan. She will continue her HEP. RTC prn. Erwin Meyers MD March 24, 2022 11:19 AM documented in this encounterMer[facility]05-05-2022 Miscellaneous Notes* Telephone Encounter - Sally Ha RN - 02/19/2022 3:29 PM EDT Left message to call office. * Telephone Encounter - Sally Ha RN - 02/19/2022 3:16 PM EDT ----- Message from Miguelina Clemente MD sent at 02/19/2022 12:36 PM EDT ----- Persistent anemia despite good iron stores. Recommend follow-up with hematology. I referred patientto hematology in 2019, but is not having difficulty finding any note. Find out if she saw them at that time. Please assist in canceling. documented in this encounterMer[facility]05-03-2022 History of Present illness Narrative* Leigh Abreu RN - 02/17/2022 11:02 AM EDT Post Op Left thumb CMC arthroplasty and suspensionplasty Ms.. Evans is 12 weeks post op from a left thumb cmc arthroplasty. she reports improving but sometimes pain still She is pleased with the current progress. No numbness, tingling, fevers or chills. Physical Exam: Incision healing well and scar maturing nicely. Improved thumb digital range of motion. Sensation is intact to light touch in all digits. Minimal swelling in the operative wrist. Sensation intact in all digits except to her thumb which is new and likely from her comfort cool. . Posture of the thumb is excellent. Negative CMC grind for pain or crepitus. 0 degrees of thumb MCP hyperextension. Opposition intact to the tip of the small finger. Assessment: 12 weeks post-op thumb CMC arthroplasty I discussed with Ms.. Evans the treatment and therapy plan. she will begin to do more normal things and wean out of the comfort cool to see if she cant alleviate that numbness. She would like to follow up with Dr. Meyers in 4 weeks for closure and she may call me directly with any questions or concerns. Doing well. Megan Abreu RN February 17, 2022 11:05 AM documented in this encounterMer[facility]04-26-2022 History of Present illness Narrative* Kelsi Rosa, DARIN/L - 02/10/2022 2:26 PM EDT Episode Visit Count: 6 Therapist That Will Oversee The Plan Of Care: Moe Start of Care Date: 12/23/21 Onset Date: 11/26/21 Plan of Care Certification Date: 12/23/21 Next Certification Due Date: 03/23/22 Patient Identified by Name and Date of : Yes REHABILITATION AND SPORTS THERAPY OCCUPATIONAL THERAPY TREATMENT NOTE ASSESSMENT: Zenaida Evans tolerated the session with expected muscle soreness. She demonstrated difficulty with applied pressure through surgical thumb but improved functional use during light tasks (gardening). The patient will continue to benefit from ongoing skilled occupational therapy to progress toward set goals. PLAN FOR NEXT VISIT: see w/ RN, d/c SUBJECTIVE: 11 wks arthroplasty and suspensionplasty of L thumb. Patient has bee compliant with HEP. Tried to complete some gardening tasks. Did have some pain, possibly going to much with left hand.pain has resolved. driving has improved. Left hand is functioning about 50% during daily routine. Pain: Pain Pain Level: 0 Pain Location: Thumb - Left Post Treatment Pain Post Treatment Pain Level: No Change OBJECTIVE MEASURES WITH LEVEL OF FUNCTION: Hand Strength L Rn Medical Inpatient Services Position 2 (lbs): 36 lbs UE AROM L Forearm Supination: 85 Degrees L Forearm Pronation: 90 Degrees L Wrist Extension: 45 Degrees L Wrist Flexion: 45 Degrees L Wrist Radial Deviation: 10 Degrees L Wrist Ulnar Deviation: 15 Degrees TREATMENT: Therapeutic Exercise: 1: *Pinches: Pt compelted tripod pinch with L hand while completing peg board (30 pegs). Focus on pinch strength/activity tolerance and gentle applied pressure through thumb. 2: *Pinches: pt twisted flat handle dowel across velcro pad while completing a tip-pinch. Focus on gentle pinch strength 3: *Ring slides: Pt completed AROM of MP/IP of L thumb in order to slide rings with each finger. Focus on MP/IP motion 4: Hand isometric: squeezes with firm green resistant ball, x10 5: Reviewed HEP Skilled Intervention: Patient was educated in proper exercise technique and purpose for exercises. Reviewed and educated patient on additions/changes for home exercise program as above (*). Skilled judgment was provided in selection of appropriate interventions. Correct performance of therapeutic exercises was facilitated with verbal, visual and tactile cuing. Self-Chcf Management: 1: Conitnue with comfort cool for day use and orthosis for night use 2: Slowly ease self into light to moderate daily tasks as able 3: Continue to use heat/ice to decrease discomfort as needed 4: Above information took less than 8 mins to discuss Skilled Intervention: Skilled judgment in the selection of proper modification for activity of daily living/home management based on clinical presentation, deficits, and needs. Educated the patient regarding recommendations and provided written instruction to facilitate compliance. Billing Therapeutic Exercise Treatment Minutes: 43 Total Treatment Time Minutes (timed/untimed): 43 ANSON Diaz, OTD documented in this encounterMer[facility]04-19-2022 NoteHNO ID: [id number] Author: DEBORAH Saleem Service: ? Author Type: Occupational Therapist Type: Progress Notes Filed: 02/03/2022 4:23 PM Note Text: Episode Visit Count: 5 Therapist That Will Oversee The Plan Of Care: Moe Start of Care Date: 12/23/21 Onset Date: 11/26/21 Plan of Care Certification Date: 12/23/21 Next Certification Due Date: 03/23/22 Patient Identified by Name and Date of : Yes REHABILITATION AND SPORTS THERAPY OCCUPATIONAL THERAPY TREATMENT NOTE ASSESSMENT: Zenaida Evans tolerated the session with expected muscle soreness. She demonstrated difficulty with strength. The patient will continue to benefit from ongoing skilled occupational therapy to progress toward set goals. PLAN FOR NEXT VISIT: progress functional tasks SUBJECTIVE: 10 wks s/p arthroplasty and suspensionplasty of L thumb. Patient has been wearing OTS thumb spica on surgical thumb for day/night use. Reports as time goes on she is able to complete light daily tasks as thumb continues to progress. 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 Pain: Pain Pain Level: 2 Pain Location: Thumb - Left OBJECTIVE MEASURES WITH LEVEL OF FUNCTION: TREATMENT: Therapeutic Exercise: 1: AROM left hand and wrist while in fluidotherapy x 10 min at 102 deg 2: thumb AROM all planes 3: with 1# weight wrist flex, ext dev and sup pro x 10 4: pt to contin ue with AROM soft sponge 5: instructed in weaning in weaning from splint while sedentary to see if it reduces her complaint of numbness Skilled Intervention: Patient was educated in proper exercise technique and purpose for exercises. Skilled judgment was provided in selection of appropriate interventions. Provided written instruction for home exercise program to facilitate proper performance and compliance. Billing Therapeutic Exercise Treatment Minutes: 40 Starla Helms OT/[id number] History of Present illness Narrative* Starla Helms OT/L - 02/03/2022 3:50 PM EDT Episode Visit Count: 5 Therapist That Will Oversee The Plan Of Care: Moe Start of Care Date: 12/23/21 Onset Date: 11/26/21 Plan of Care Certification Date: 12/23/21 Next Certification Due Date: 03/23/22 Patient Identified by Name and Date of : Yes REHABILITATION AND SPORTS THERAPY OCCUPATIONAL THERAPY TREATMENT NOTE ASSESSMENT: Zenaida Evans tolerated the session with expected muscle soreness. She demonstrated difficulty with strength. The patient will continue to benefit from ongoing skilled occupational therapy to progress toward set goals. PLAN FOR NEXT VISIT: progress functional tasks SUBJECTIVE: 10 wks s/p arthroplasty and suspensionplasty of L thumb. Patient has been wearing OTS thumb spica on surgical thumb for day/night use. Reports as time goes on she is able to complete light daily tasks as thumb continues to progress. 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 Pain: Pain Pain Level: 2 Pain Location: Thumb - Left OBJECTIVE MEASURES WITH LEVEL OF FUNCTION: TREATMENT: Therapeutic Exercise: 1: AROM left hand and wrist while in fluidotherapy x 10 min at 102 deg 2: thumb AROM all planes 3: with 1# weight wrist flex, ext dev and sup pro x 10 4: pt to contin ue with AROM soft sponge 5: instructed in weaning in weaning from splint while sedentary to see if it reduces her complaint of numbness Skilled Intervention: Patient was educated in proper exercise technique and purpose for exercises. Skilled judgment was provided in selection of appropriate interventions. Provided written instruction for home exercise program to facilitate proper performance and compliance. Billing Therapeutic Exercise Treatment Minutes: 40 DEBORAH Saleem documented in this [facility]04-12-2022 NoteHNO ID: [id number] Author: DEBORAH Saleem Service: ? Author Type: Occupational Therapist Type: Progress Notes Filed: 01/27/2022 12:27 PM Note Text: The patient did not show up for this appointment.[id number] History of Present illness Narrative* DEBORAH Saleem - 01/27/2022 12:26 PM EDT The patient did not show up for this appointment. documented in this [facility]04-05-2022 Miscellaneous Notes* Addendum Note - DEBORAH Diaz - 01/20/2022 10:12 AM EDT Addended by: KELSI ROSA on: 01/20/2022 10:12 AM Modules accepted: Orders documented in this [facility]04-05-2022 History of Present illness Narrative* DEBORAH Diaz - 01/20/2022 9:47 AM EDT Episode Visit Count: 4 Therapist That Will Oversee The Plan Of Care: Moe Start of Care Date: 12/23/21 Onset Date: 11/26/21 Plan of Care Certification Date: 12/23/21 Next Certification Due Date: 03/23/22 Patient Identified by Name and Date of : Yes REHABILITATION AND SPORTS THERAPY OCCUPATIONAL THERAPY PROGRESS REPORT PLAN OF CARE UPDATE: Assessment: Zenaida Evans demonstrates moderate improvement in surgical thumb/wrist joint mobility. Demonstrated some difficulty with increase pain with applied pressure throught left thumb. She has progressed toward goals. Issued short comfort cool for day use. Was seen by orthophoto tech/draftsman in therapy, and doing well from OT standpoint. Patient continues to present with impairments in overall function,range of motion, strength and tissue tenderness that interfere with lifting;heavy exertion;cleaning; dressing;cooking;carrying;pushing;pulling;gripping;weight bearing;pinching;twisting . Current prognosis is Good due to: current objective clinical presentation . She will benefit from continued skilled therapy services to meet the updated goals for this plan of care as noted below. Goals for Episode of Care created on 12/23/21 through 03/17/22 Update: 01/20/22 Goal Raymundo A: Achieved PA: Partially Achieved NA: Not Achieved NT: Not tested *All goals are PA unless marked otherwise Patient will report a good understanding of diagnosis and OT recommendations for progression of program. Patient will demonstrate independence with ongoing home recommendations/exercise program throughout therapy plan of care. Patient will improve function in Left thumb in order to be able to perform basic self-care tasks and light functional tasks. Patient will report a decrease in pain in Left thumb to 2/10 with basic self-care tasks and light functional tasks. Patient will increase AROM of Left wrist flex/ext to 45/50 in order to be able to improve function for basic self-care tasks and light functional tasks. Patient will increase AROM of opposition to L SF in order to be able to improve function for basic self-care tasks and light functional tasks. A Patient will independently demonstrate correct application of CUSTOM orthosis and verbalize understanding of proper wear/care. ACHIEVED 12/23/21 Patient will report a good understanding of edema control, scar / wound management throughout therapy plan of care to promote non-adherent / non-tender soft tissue. A Patient will report a good understanding of the use of pain reducing modalities to help manage discomfort and promote healing. A Patient Goals: To gain functional use of left hand in order to complete daily routine and gardening tasks New goal: Patient will increase wind technician strength to 30# or greater with left hand in order to complete meal preparation and moderate daily tasks. Planned Interventions, Frequency, and Duration: 1x/week, 4 weeks Total Number of Visits Planned: 4 Planned Treatment Interventions: Custom orthosis fabrication;Prefabricated orthosis fitting;Self-long-term management (18490);Therapeutic exercise ([id number]) PLAN FOR NEXT VISIT: heat, motion, progress with strength (possible putty) SUBJECTIVE: 8 wks s/p arthroplasty and suspensionplasty of L thumb. Patient has been wearing OTS thumb spica on surgical thumb for day/night use. Reports as time goes on she is able to complete lightdaily tasks as thumb continues to progress. 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 Functional Limitations: lifting;heavy exertion;cleaning;dressing;cooking;carrying;pushing;pulling;gripping;weight bearing;pinching;twisting Pain: Pain Pain Level: 1 Pain Location: Thumb - Left Description: Sore Frequency: Continuous Worst Pain Level: 5 Post Treatment Pain Post Treatment Pain Level: No Change PROMIS Scales Higher is Better 07/30/2017 07/10/2020 07/10/2020 GH Physical - Score - - 42.3 GH Physical - Percentile 22 % 22 % 22 % GH Mental - Score - - 38.8 GH Mental - Percentile 26 % 13 % 13 % T-scores: mean of general population = 50. 5 points is clinically meaningfully difference Percentiles provide an indication of how the patient's score ranks in relation to the general population. Higher percentile rankings indicate better function/quality of life. 50th percentile is the average of the general population and indicates half of respondents had a worse score. T-scores: mean of general population = 50. 5 points is clinically meaningfully difference Percentiles provide an indication of how the patient's score ranks in relation to the general population. Higher percentile rankings indicate better function/quality of life. 50th percentile is the average of the general population and indicates half of respondents had a worse score. OBJECTIVE MEASURES WITH LEVEL OF FUNCTION: Hand Scar: Non-tender (mobile/pliable) Edema Location: Left thumb/wrist Edema Description: Mild Strength: Rn Medical Inpatient Services Position 2;Pinch Meter Sensation: Denies tingling or numbness Hand Strength R Rn Medical Inpatient Services Position 2 (lbs): 53 lbs L Rn Medical Inpatient Services Position 2 (lbs): 20 lbs R Lateral Pinch (lbs): 16 lbs R Tripod/ 3 Jaw Arturo (lbs): 12 lbs R Tip Pinch (lbs): 9 lbs L Lateral Pinch (lbs): 6 lbs L Tripod/ 3 Jaw Arturo (lbs): 4 lbs L Tip Pinch (lbs): 4 lbs UE AROM L Wrist Extension: 50 Degrees L Wrist Flexion: 35 Degrees L Wrist Radial Deviation: 5 Degrees L Wrist Ulnar Deviation: 20 Degrees Hand AROM L Thumb MP Flexion : 15 Degrees L Thumb IP Flexion : 40 Degrees L Thumb Flexion Adduction (cm): 0 cm L Thumb Radial Abduction: 35 Degrees L Thumb Palmar Abduction: 40 Degrees L Thumb Opposition (Functional): DIP of L SF TREATMENT: Therapeutic Exercise: 1: Collected and recorded objective data 2: *Instructed pt in digit slides down L SL. pt returned demo, x10 3: *Instructed pt in hand isometrics with firm ball (tennis ball). pt returned demo 4: *Instructed pt in squeezes, pinches, and finger add w/ Callaway resistant eggs. Pt returned demo -written handout provided 5: *Instructed pt in dexterity balls. Focus on in-hand manipulation. pt returned demo 6: Reviewed thumb/wrist exs 7: Continue with HEP 2-3x/day Skilled Intervention: Patient was educated in proper exercise technique and purpose for exercises. Reviewed and educated patient on additions/changes for home exercise program as above (*). Skilled judgment was provided in selection of appropriate interventions. Provided written instruction for home exercise program to facilitate proper performance and compliance. Correct performance of therapeutic exercises was facilitated with verbal, visual and tactile cuing. Prefabricated orthosis: L 3923 (b) HFO w/out joints (comfort cool, igor-pee, column splint) Prefabricated orthosis to provide immobilization, protection and support of L thumb to promote healing, OT provided patient with education/ written instructions for orthosis care and precautions. andPt practiced orthosis application, donning on/off while under OT's supervision.. Patient was instruc therese in wear and care. Instructed in wearing schedule As needed day and/or night for pain relief.. Skilled Intervention: Technical skill required for proper fitting of pre-fabricated orthotic and wearing schedule Patient/caregiver was educated in correct method for donning/doffing orthosis as well as wear and care of orthosis. Home Program Assigned: 1: Tennis ball: Squeezes with left hand while holding firm ball. Complete 2- 3x/day 8-10 reps, hold for 10 sec. 2: Callaway Egg: Squeezes, pinches (each finger), and squeezes with egg between each finger. Complete 8-10 reps, 2-3x/day, hold for 10 secs 3: Dexterity ball: rotate balls within left palm while using thumb 4: Finger slides: Slidding thumb slowly down pinkey finger. complete 2-3x/day, 8-10 reps, hold for 5 sec. Billing Therapeutic Exercise Treatment Minutes: 50 * L 3923 (b) HFO w/out joints (comfort cool, igor-pee, column splint) Quantity: 1 Total Treatment Time Minutes (timed and untimed codes) : 50 BEN Diaz/Cathryn, OTD [facility] History of Present illness Narrative* Leigh Abreu RN - 01/20/2022 9:16 AM EDT Post Op Left thumb CMC arthroplasty and suspensionplasty Ms.. Evans is 8 weeks post op from a left thumb cmc arthroplasty. she reports improving but sometimes moderate pain still She is pleased with the current progress. No numbness, tingling, fevers or chills. Physical Exam: Incision healing well and scar maturing nicely. Improved thumb digital range of motion. Sensation is intact to light touch in all digits. Mild swelling in the operative wrist. Sensation intact in all digits. Posture of the thumb is excellent. Negative CMC grind for pain or crepitus. 0 degrees of thumb MCP hyperextension. Opposition intact to the tip of the small finger. Assessment: 8 weeks post-op thumb CMC arthroplasty I discussed with Ms.. Evans the treatment and therapy plan. Patient will continue occupational therapy. We will transition to comfort cool. Therapy will focus on motion, edema control and scar management and progress into light strengthening at 8 weeks post-op. We once again discussed the the long recovery and need for protection. she will return in 4 weeks for re-evaluation and progression of prog karrie. Call me directly with any questions or concerns. Megan Abreu RN January 20, 2022 10:15 AM documented in [facility] encounterMer[facility]22 NoteHNO ID: [id number] Author: Starla Helms OT/L Service: ? Author Type: Occupational Therapist Type: Progress Notes Filed: 01/13/2022 4:21 PM Note Text: Episode Visit Count: 3 Therapist That Will Oversee The Plan Of Care: Moe Start of Care Date: 12/23/21 Onset Date: 11/26/21 Plan of Care Certification Date: 12/23/21 Next Certification Due Date: 03/23/22 Patient Identified by Name and Date of : Yes REHABILITATION AND SPORTS THERAPY OCCUPATIONAL THERAPY TREATMENT NOTE ASSESSMENT: Zenaida Evans tolerated the session with expected muscle soreness. She demonstrated difficulty with strength and function and improvements in AROM. The patient will continue to benefit from ongoing skilled occupational therapy to progress toward set goals. PLAN FOR NEXT VISIT: SUBJECTIVE: weeks s/p CMC suspensionplasty reports she is doing better prefabricated splint is working better Pain: Pain Pain Level: 4 OBJECTIVE MEASURES WITH LEVEL OF FUNCTION: UE AROM L Wrist Extension: 55 Degrees L Wrist Flexion: 50 Degrees TREATMENT: Therapeutic Exercise: 1: AROM Left wrist and thumb in fluidotherapy x 10 minutes at 102 deg 2: AROM Wrist all planes 3: thumb opposition flex ext circumduction radial and palmar abduction 4: Soft sponge wind technician manipulate and slate picker Skilled Intervention: Patient was educated in proper exercise technique and purpose for exercises. Skilled judgment was provided in selection of appropriate interventions. Billing Therapeutic Exercise Treatment Minutes: 40 Starla Helms OT/[facility]University [facility] [id number] NoteHNO ID: [id number] Author: Starla Helms OT/Cathryn Service: ? Author Type: Occupational Therapist Type: Progress Notes Filed: 01/06/2022 3:50 PM Note Text: Episode Visit Count: 2 Therapist That Will Oversee The Plan Of Care: Moe Start of Care Date: 12/23/21 Onset Date: 11/26/21 Plan of Care Certification Date: 12/23/21 Next Certification Due Date: 03/23/22 REHABILITATION AND SPORTS THERAPY OCCUPATIONAL THERAPY TREATMENT NOTE ASSESSMENT: Zenaida Evans tolerated the session with expected muscle soreness. She demonstrated difficulty with full AROM edema and splint wear. The patient will continue to benefit from ongoing skilled occupational therapy to progress toward set goals. PLAN FOR NEXT VISIT: SUBJECTIVE: 6 weeks s/p CMC suspensionplasty Pt with many concerns about splint and questions about what she shouldd be doing Pain: Pain Pain Level: 6 OBJECTIVE MEASURES WITH LEVEL OF FUNCTION: UE AROM L Wrist Extension: 45 Degrees L Wrist Flexion: 20 Degrees TREATMENT: Therapeutic Exercise: 1: trialed prefabricated thumb spica splint forearm based 2: adjusted fabbricated splint instructed in wear schedule and precautions 3: explained to pt reasons and rationale of splint 4: educated in scar management 5: educated in use of heat or ice with precautions 6: AROM WRIST FLEX, WRIST EXT AND DEV 7: AROM thumb flex ext opposition to middle finger 8: thumb IP flexion and circumductio n Skilled Intervention: Patient was educated in proper exercise technique and purpose for exercises. Skilled judgment was provided in selection of appropriate interventions. Billing Therapeutic Exercise Treatment Minutes: 45 Starla Helms /[facility] [id number] History of Past illness Narrative * Problem Noted Date Resolved Date Thumb pain, left 12/23/2021 01/08/2023 Hypertensive emergency 12/22/2019 0 Chest pain 11/22/2019 09/19/2020 Overview: History of HTN and history of SVT with normal cath in the past, Recently admitted to OSH in October with HTN urgency and neurological evaluation of slurred speech, SALTER and MS changes. 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 Antihypertensives were adjusted. She presents to ED complaining of chest pressure. Patient states she has had midsternal chest pressure for the past 2 weeks with exertion. It resolves with rest. She has associated shortness of breath and also improves with rest. She had lightheadedness but no diaphoresis, nausea. In the ED the ECG shows NSR at 63 bpm, no STEMI. New T wave inversion in AVL, compared to prior 10/19/2019. She was found to have elevated troponin and hyperkaliemia in setting of new onset BRIGHT on CKD with creatine 1.68 (baseline creatine- 1.1-1.2) CK/CKMB negative. Patient transferred to [facility] for further evaluation. OSH Echo 10/2019 EF 65%, stage 1 diastolic dysfunction, mild TR Plan cycle enzymes CK 150 Trop T 0.053 BP management treatment of BRIGHT improved off cozaar and maxzide creat 1.35 repeat echo completed and pending Stress test scheduled 11/24/2019 at 7:45 No scar or ischemia Hyperkalemia 11/22/2019 12/15/2019 Overview: see plan CKD BRIGHT (acute kidney injury) 11/22/20192019 Overview: see plan BRIGHT Atypical chest pain 11/22/2019 09/19/2020 Delirium 10/19/2019 10/22/2019 Headache 10/18/2019 10/22/2019 Impingement syndrome of left shoulder 03/01/2019 09/19/2020 Atrophy of gluteus caryln muscle 01/17/2019 09/19/2020 Bilateral leg weakness 04/06/2018 0 Strain of rotator cuff 01/06/2017 0 Localized edema 11/10/2016 09/19/2020 Abnormality of gait 09/09/2015 09/19/2020 Tendinopathy of left gluteus medius 08/23/2014 09/19/2020 Greater trochanteric bursitis of left hip 201309/19/2020 Left hip impingement syndrome 08/07/2014 Colitis 04/13/2014 07/30/2017 Stiffness in joint 12/02/2011 09/19/2020 Right Breast Cancer 10/13/2011 01/08/2023 Overview: Right breast radiation, no chemo. Surgery in 2011. 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 Last Assessment & Plan: Right breast radiation, no chemo. Surgery in 2011. 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 Declines aromatase inhibitor. States told Dr. Ruby wouldn't take it. States has been almost 5 years. Visit for gynecologic examination 10/05/2011 09/19/2020 Hypothyroid 05/21/2011 09/21/2013 Hair loss 06/18/2010 09/19/2020 Thyroid disorder 06/18/2010 09/19/2020 CKD (chronic kidney disease) stage 3, GFR 30-59 ml/min 05/20/2010 01/08/2023 Last Assessment & Plan: Assessment: Creatinine Date Value Ref Range Status 03/19/2021 1.38 (H) 0.58 - 0.96 mg/dL Final 01/17/2021 1.27 (H) 0.58 - 0.96 mg/dL Final 08/12/2020 1.29 (H) 0.58 - 0.96 mg/dL Final 06/19/2020 1.46 (H) 0.58 - 0.96 mg/dL Final Unspecified hypertrophic and atrophic condition of skin 06/14/2008 08/12/2015 Scar condition and fibrosis of skin 06/14/2008 08/12/2015 Abnormal mammogram, unspecified 03/19/2008 04/10/2008 GOITER NOS 08/26/2007 01/09/2016 OSTEOARTHRITIS 08/26/2007 01/09/2016 Overview: Hand and TS and LS spine VISUAL REFRACTION ERROR 08/26/2007 01/09/20 16 Sleep disturbance, unspecified 08/26/2007 0 01/09/2016 Unspecified hearing loss 08/26/2007 016 Irritable bowel syndrome 08/26/2007 020 Anemia, unspecified 06/09/2005 08/31/2008 Palpitations 07/06/2003 08/31/2008 Alopecia, unspecified 07/06/2003 08/31/2008 Diarrhea 08/31/2008 Need for prophylactic hormon e replacement therapy (postmenopausal) 09/10/2015 Unspecified vitamin D deficiency 06/29/2008 hx of breast cancer ER positive 09/10/2015 Dyspareunia 09/19/2020 Vaginismus 09/19/2020 documented as of this encounter (statuses as of 01/30/2023) [facility] of Past illness Narrative* Problem Noted Date Resolved Date Thumb pain, left 12/23/2021 01/08/2023 Hypertensive emergency 12/22/2019 0 Chest pain 11/22/2019 09/19/2020 Overview: History of HTN and history of SVT with normal cath in the past, Recently admitted to OSH in October with HTN urgency and neurological evaluation of slurred speech, SALTER and MS changes. 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 Antihypertensives were adjusted. She presents to ED complaining of chest pressure. Patient states she has had midsternal chest pressure for the past 2 weeks with exertion. It resolves with rest. She has associated shortness of breath and also improves with rest. She had lightheadedness but no diaphoresis, nausea. In the ED the ECG shows NSR at 63 bpm, no STEMI. New T wave inversion in AVL, compared to prior 10/19/2019. She was found to have elevated troponin and hyperkaliemia in setting of new onset BRIGHT on CKD with creatine 1.68 (baseline creatine- 1.1-1.2) CK/CKMB negative. Patient transferred to [facility] for further evaluation. OSH Echo 10/2019 EF 65%, stage 1 diastolic dysfunction, mild TR Plan cycle enzymes CK 150 Trop T 0.053 BP management treatment of BRIGHT improved off cozaar and maxzide creat 1.35 repeat echo completed and pending Stress test scheduled 11/24/2019 at 7:45 No scar or ischemia Hyperkalemia 11/22/2019 12/15/2019 Overview: see plan CKD BRIGHT (acute kidney injury) 11/22/20192019 Overview: see plan BRIGHT Atypical chest pain 11/22/2019 09/19/2020 Delirium 10/19/2019 10/22/2019 Headache 10/18/2019 10/22/2019 Impingement syndrome of left shoulder 03/01/2019 09/19/2020 Atrophy of gluteus carlyn muscle 01/17/2019 09/19/2020 Bilateral leg weakness 04/06/2018 0 Strain of rotator cuff 01/06/2017 0 Localized edema 11/10/2016 09/19/2020 Abnormality of gait 09/09/2015 09/19/2020 Tendinopathy of left gluteus medius 08/23/2014 09/19/2020 Greater trochanteric bursitis of left hip 201309/19/2020 Left hip impingement syndrome 08/07/2014 Colitis 04/13/2014 07/30/2017 Stiffness in joint 12/02/2011 09/19/2020 Right Breast Cancer 10/13/2011 01/08/2023 Overview: Right breast radiation, no chemo. Surgery in 2011. 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 Last Assessment & Plan: Right breast radiation, no chemo. Surgery in 2011. 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 Declines aromatase inhibitor. States told Dr. Ruby wouldn't take it. States has been almost 5 years. Visit for gynecologic examination 10/05/2011 09/19/2020 Hypothyroid 05/21/2011 09/21/2013 Hair loss 06/18/2010 09/19/2020 Thyroid disorder 06/18/2010 09/19/2020 CKD (chronic kidney disease) stage 3, GFR 30-59 ml/min 05/20/2010 01/08/2023 Last Assessment & Plan: Assessment: Creatinine Date Value Ref Range Status 03/19/2021 1.38 (H) 0.58 - 0.96 mg/dL Final 01/17/2021 1.27 (H) 0.58 - 0.96 mg/dL Final 08/12/2020 1.29 (H) 0.58 - 0.96 mg/dL Final 06/19/2020 1.46 (H) 0.58 - 0.96 mg/dL Final Unspecified hypertrophic and atrophic condition of skin 06/14/2008 08/12/2015 Scar condition and fibrosis of skin 06/14/2008 08/12/2015 Abnormal mammogram, unspecified 03/19/2008 04/10/2008 GOITER NOS 08/26/2007 01/09/2016 OSTEOARTHRITIS 08/26/2007 01/09/2016 Overview: Hand and TS and LS spine VISUAL REFRACTION ERROR 08/26/2007 01/09/20 16 Sleep disturbance, unspecified 08/26/2007 0 01/09/2016 Unspecified hearing loss 08/26/2007 016 Irritable bowel syndrome 08/26/2007 020 Anemia, unspecified 06/09/2005 08/31/2008 Palpitations 07/06/2003 08/31/2008 Alopecia, unspecified 07/06/2003 08/31/2008 Diarrhea 08/31/2008 Need for prophylactic hormon e replacement therapy (postmenopausal) 09/10/2015 Unspecified vitamin D deficiency 06/29/2008 hx of breast cancer ER positive 09/10/2015 Dyspareunia 09/19/2020 Vaginismus 09/19/2020 documented as of this encounter (statuses as of 02/23/2023) [facility] of Past illness Narrative* Problem Noted Date Resolved Date Thumb pain, left 12/23/2021 01/08/2023 Hypertensive emergency 12/22/2019 0 Chest pain 11/22/2019 09/19/2020 Overview: History of HTN and history of SVT with normal cath in the past, Recently admitted to OSH in October with HTN urgency and neurological evaluation of slurred speech, SALTER and MS changes. 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 Antihypertensives were adjusted. She presents to ED complaining of chest pressure. Patient states she has had midsternal chest pressure for the past 2 weeks with exertion. It resolves with rest. She has associated shortness of breath and also improves with rest. She had lightheadedness but no diaphoresis, nausea. In the ED the ECG shows NSR at 63 bpm, no STEMI. New T wave inversion in AVL, compared to prior 10/19/2019. She was found to have elevated troponin and hyperkaliemia in setting of new onset BRIGHT on CKD with creatine 1.68 (baseline creatine- 1.1-1.2) CK/CKMB negative. Patient transferred to [facility] for further evaluation. OSH Echo 10/2019 EF 65%, stage 1 diastolic dysfunction, mild TR Plan cycle enzymes CK 150 Trop T 0.053 BP management treatment of BRIGHT improved off cozaar and maxzide creat 1.35 repeat echo completed and pending Stress test scheduled 11/24/2019 at 7:45 No scar or ischemia Hyperkalemia 11/22/2019 12/15/2019 Overview: see plan CKD BRIGHT (acute kidney injury) 11/22/20192019 Overview: see plan BRIGHT Atypical chest pain 11/22/2019 09/19/2020 Delirium 10/19/2019 10/22/2019 Headache 10/18/2019 10/22/2019 Impingement syndrome of left shoulder 03/01/2019 09/19/2020 Atrophy of gluteus carlyn muscle 01/17/2019 09/19/2020 Bilateral leg weakness 04/06/2018 0 Strain of rotator cuff 01/06/2017 0 Localized edema 11/10/2016 09/19/2020 Abnormality of gait 09/09/2015 09/19/2020 Tendinopathy of left gluteus medius 08/23/2014 09/19/2020 Greater trochanteric bursitis of left hip 201309/19/2020 Left hip impingement syndrome 08/07/2014 Colitis 04/13/2014 07/30/2017 Stiffness in joint 12/02/2011 09/19/2020 Right Breast Cancer 10/13/2011 01/08/2023 Overview: Right breast radiation, no chemo. Surgery in 2011. 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 Last Assessment & Plan: Right breast radiation, no chemo. Surgery in 2011. 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 Declines aromatase inhibitor. States told Dr. Ruby wouldn't take it. States has been almost 5 years. Visit for gynecologic examination 10/05/2011 09/19/2020 Hypothyroid 05/21/2011 09/21/2013 Hair loss 06/18/2010 09/19/2020 Thyroid disorder 06/18/2010 09/19/2020 CKD (chronic kidney disease) stage 3, GFR 30-59 ml/min 05/20/2010 01/08/2023 Last Assessment & Plan: Assessment: Creatinine Date Value Ref Range Status 03/19/2021 1.38 (H) 0.58 - 0.96 mg/dL Final 01/17/2021 1.27 (H) 0.58 - 0.96 mg/dL Final 08/12/2020 1.29 (H) 0.58 - 0.96 mg/dL Final 06/19/2020 1.46 (H) 0.58 - 0.96 mg/dL Final Unspecified hypertrophic and atrophic condition of skin 06/14/2008 08/12/2015 Scar condition and fibrosis of skin 06/14/2008 08/12/2015 Abnormal mammogram, unspecified 03/19/2008 04/10/2008 GOITER NOS 08/26/2007 01/09/2016 OSTEOARTHRITIS 08/26/2007 01/09/2016 Overview: Hand and TS and LS spine VISUAL REFRACTION ERROR 08/26/2007 01/09/20 16 Sleep disturbance, unspecified 08/26/2007 0 01/09/2016 Unspecified hearing loss 08/26/2007 016 Irritable bowel syndrome 08/26/2007 020 Anemia, unspecified 06/09/2005 08/31/2008 Palpitations 07/06/2003 08/31/2008 Alopecia, unspecified 07/06/2003 08/31/2008 Diarrhea 08/31/2008 Need for prophylactic hormon e replacement therapy (postmenopausal) 09/10/2015 Unspecified vitamin D deficiency 06/29/2008 hx of breast cancer ER positive 09/10/2015 Dyspareunia 09/19/2020 Vaginismus 09/19/2020 documented as of this encounter (statuses as of 03/24/2023) [facility] of Past illness Narrative* Problem Noted Date Resolved Date Thumb pain, left 12/23/2021 01/08/2023 Hypertensive emergency 12/22/2019 0 Chest pain 11/22/2019 09/19/2020 Overview: History of HTN and history of SVT with normal cath in the past, Recently admitted to OSH in October with HTN urgency and neurological evaluation of slurred speech, SALTER and MS changes. 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 Antihypertensives were adjusted. She presents to ED complaining of chest pressure. Patient states she has had midsternal chest pressure for the past 2 weeks with exertion. It resolves with rest. She has associated shortness of breath and also improves with rest. She had lightheadedness but no diaphoresis, nausea. In the ED the ECG shows NSR at 63 bpm, no STEMI. New T wave inversion in AVL, compared to prior 10/19/2019. She was found to have elevated troponin and hyperkaliemia in setting of new onset BRIGHT on CKD with creatine 1.68 (baseline creatine- 1.1-1.2) CK/CKMB negative. Patient transferred to [facility] for further evaluation. OSH Echo 10/2019 EF 65%, stage 1 diastolic dysfunction, mild TR Plan cycle enzymes CK 150 Trop T 0.053 BP management treatment of BRIGHT improved off cozaar and maxzide creat 1.35 repeat echo completed and pending Stress test scheduled 11/24/2019 at 7:45 No scar or ischemia Hyperkalemia 11/22/2019 12/15/2019 Overview: see plan CKD BRIGHT (acute kidney injury) 11/22/20192019 Overview: see plan BRIGHT Atypical chest pain 11/22/2019 09/19/2020 Delirium 10/19/2019 10/22/2019 Headache 10/18/2019 10/22/2019 Impingement syndrome of left shoulder 03/01/2019 09/19/2020 Atrophy of gluteus carlyn muscle 01/17/2019 09/19/2020 Bilateral leg weakness 04/06/2018 0 Strain of rotator cuff 01/06/2017 0 Localized edema 11/10/2016 09/19/2020 Abnormality of gait 09/09/2015 09/19/2020 Tendinopathy of left gluteus medius 08/23/2014 09/19/2020 Greater trochanteric bursitis of left hip 201309/19/2020 Left hip impingement syndrome 08/07/2014 Colitis 04/13/2014 07/30/2017 Stiffness in joint 12/02/2011 09/19/2020 Right Breast Cancer 10/13/2011 01/08/2023 Overview: Right breast radiation, no chemo. Surgery in 2011. 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 Last Assessment & Plan: Right breast radiation, no chemo. Surgery in 2011. 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 Declines aromatase inhibitor. States told Dr. Ruby wouldn't take it. States has been almost 5 years. Visit for gynecologic examination 10/05/2011 09/19/2020 Hypothyroid 05/21/2011 09/21/2013 Hair loss 06/18/2010 09/19/2020 Thyroid disorder 06/18/2010 09/19/2020 CKD (chronic kidney disease) stage 3, GFR 30-59 ml/min 05/20/2010 01/08/2023 Last Assessment & Plan: Assessment: Creatinine Date Value Ref Range Status 03/19/2021 1.38 (H) 0.58 - 0.96 mg/dL Final 01/17/2021 1.27 (H) 0.58 - 0.96 mg/dL Final 08/12/2020 1.29 (H) 0.58 - 0.96 mg/dL Final 06/19/2020 1.46 (H) 0.58 - 0.96 mg/dL Final Unspecified hypertrophic and atrophic condition of skin 06/14/2008 08/12/2015 Scar condition and fibrosis of skin 06/14/2008 08/12/2015 Abnormal mammogram, unspecified 03/19/2008 04/10/2008 GOITER NOS 08/26/2007 01/09/2016 OSTEOARTHRITIS 08/26/2007 01/09/2016 Overview: Hand and TS and LS spine VISUAL REFRACTION ERROR 08/26/2007 01/09/20 16 Sleep disturbance, unspecified 08/26/2007 0 01/09/2016 Unspecified hearing loss 08/26/2007 016 Irritable bowel syndrome 08/26/2007 020 Anemia, unspecified 06/09/2005 08/31/2008 Palpitations 07/06/2003 08/31/2008 Alopecia, unspecified 07/06/2003 08/31/2008 Diarrhea 08/31/2008 Need for prophylactic hormon e replacement therapy (postmenopausal) 09/10/2015 Unspecified vitamin D deficiency 06/29/2008 hx of breast cancer ER positive 09/10/2015 Dyspareunia 09/19/2020 Vaginismus 09/19/2020 documented as of this encounter (statuses as of 04/02/2023) [facility] History of Past illness Narrative* Problem Noted Date Resolved Date Thumb pain, left 12/23/2021 01/08/2023 Hypertensive emergency 12/22/2019 0 Chest pain 11/22/2019 09/19/2020 Overview: History of HTN and history of SVT with normal cath in the past, Recently admitted to OSH in October with HTN urgency and neurological evaluation of slurred speech, SALTER and MS changes. 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 Antihypertensives were adjusted. She presents to ED complaining of chest pressure. Patient states she has had midsternal chest pressure for the past 2 weeks with exertion. It resolves with rest. She has associated shortness of breath and also improves with rest. She had lightheadedness but no diaphoresis, nausea. In the ED the ECG shows NSR at 63 bpm, no STEMI. New T wave inversion in AVL, compared to prior 10/19/2019. She was found to have elevated troponin and hyperkaliemia in setting of new onset BRIGHT on CKD with creatine 1.68 (baseline creatine- 1.1-1.2) CK/CKMB negative. Patient transferred to [facility] for further evaluation. OSH Echo 10/2019 EF 65%, stage 1 diastolic dysfunction, mild TR Plan cycle enzymes CK 150 Trop T 0.053 BP management treatment of BRIGHT improved off cozaar and maxzide creat 1.35 repeat echo completed and pending Stress test scheduled 11/24/2019 at 7:45 No scar or ischemia Hyperkalemia 11/22/2019 12/15/2019 Overview: see plan CKD BRIGHT (acute kidney injury) 11/22/20192019 Overview: see plan BRIGHT Atypical chest pain 11/22/2019 09/19/2020 Delirium 10/19/2019 10/22/2019 Headache 10/18/2019 10/22/2019 Impingement syndrome of left shoulder 03/01/2019 09/19/2020 Atrophy of gluteus carlyn muscle 01/17/2019 09/19/2020 Bilateral leg weakness 04/06/2018 0 Strain of rotator cuff 01/06/2017 0 Localized edema 11/10/2016 09/19/2020 Abnormality of gait 09/09/2015 09/19/2020 Tendinopathy of left gluteus medius 08/23/2014 09/19/2020 Greater trochanteric bursitis of left hip 201309/19/2020 Left hip impingement syndrome 08/07/2014 Colitis 04/13/2014 07/30/2017 Stiffness in joint 12/02/2011 09/19/2020 Right Breast Cancer 10/13/2011 01/08/2023 Overview: Right breast radiation, no chemo. Surgery in 2011. 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 Last Assessment & Plan: Right breast radiation, no chemo. Surgery in 2011. 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 Declines aromatase inhibitor. States told Dr. Ruby wouldn't take it. States has been almost 5 years. Visit for gynecologic examination 10/05/2011 09/19/2020 Hypothyroid 05/21/2011 09/21/2013 Hair loss 06/18/2010 09/19/2020 Thyroid disorder 06/18/2010 09/19/2020 CKD (chronic kidney disease) stage 3, GFR 30-59 ml/min 05/20/2010 01/08/2023 Last Assessment & Plan: Assessment: Creatinine Date Value Ref Range Status 03/19/2021 1.38 (H) 0.58 - 0.96 mg/dL Final 01/17/2021 1.27 (H) 0.58 - 0.96 mg/dL Final 08/12/2020 1.29 (H) 0.58 - 0.96 mg/dL Final 06/19/2020 1.46 (H) 0.58 - 0.96 mg/dL Final Unspecified hypertrophic and atrophic condition of skin 06/14/2008 08/12/2015 Scar condition and fibrosis of skin 06/14/2008 08/12/2015 Abnormal mammogram, unspecified 03/19/2008 04/10/2008 GOITER NOS 08/26/2007 01/09/2016 OSTEOARTHRITIS 08/26/2007 01/09/2016 Overview: Hand and TS and LS spine VISUAL REFRACTION ERROR 08/26/2007 01/09/20 16 Sleep disturbance, unspecified 08/26/2007 0 01/09/2016 Unspecified hearing loss 08/26/2007 016 Irritable bowel syndrome 08/26/2007 020 Anemia, unspecified 06/09/2005 08/31/2008 Palpitations 07/06/2003 08/31/2008 Alopecia, unspecified 07/06/2003 08/31/2008 Diarrhea 08/31/2008 Need for prophylactic hormon e replacement therapy (postmenopausal) 09/10/2015 Unspecified vitamin D deficiency 06/29/2008 hx of breast cancer ER positive 09/10/2015 Dyspareunia 09/19/2020 Vaginismus 09/19/2020 documented as of this encounter (statuses as of 04/08/2023) [facility]03-08-2022 History of Past illness Narrative* Problem Noted Date Diagnosed Date Resolved Date Thumb pain, left 12/23/2021 01/08/2023 Hypertensive emergency 12/22/201905/02 Chest pain 11/22/2019 09/19/2020 Overview: History of HTN and history of SVT with normal cath in the past, Recently admitted to OSH in October with HTN urgency and neurological evaluation of slurred speech, SALTER and MS changes. 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 Antihypertensives were adjusted. She presents to ED complaining of chest pressure. Patient states she has had midsternal chest pressure for the past 2 weeks with exertion. It resolves with rest. She has associated shortness of breath and also improves with rest. She had lightheadedness but no diaphoresis, nausea. In the ED the ECG shows NSR at 63 bpm, no STEMI. New T wave inversion in AVL, compared to prior 10/19/2019. She was found to have elevated troponin and hyperkaliemia in setting of new onset BRIGHT on CKD with creatine 1.68 (baseline creatine- 1.1-1.2) CK/CKMB negative. Patient transferred to main [place] for further evaluation. OSH Echo 10/2019 EF 65%, stage 1 diastolic dysfunction, mild TR Plan cycle enzymes CK 150 Trop T 0.053 BP management treatment of BRIGHT improved off cozaar and maxzide creat 1.35 repeat echo completed and pending Stress test scheduled 11/24/2019 at 7:45 No scar or ischemia Hyperkalemia 11/22/2019 12/15/2019 Overview: see plan CKD BRIGHT (acute kidney injury) 11/22/2019 Overview: see plan BRIGHT Atypical chest pain 11/22/2019 09/19/20 20 Delirium 10/19/2019 10/22/2019 Headache 10/18/2019 10/22/2019 Impingement syndrome of left shoulder 03/01/2019 09/19/2020 Atrophy of gluteus carlyn muscle 01/17/2019 09/19/2020 Bilateral leg weakness 04/06/201809/19 Strain of rotator cuff 01/06/201709/19 Localized edema 11/10/2016 09/19/2020 Abnormality of gait 09/09/2015 09/19/20 20 Tendinopathy of left gluteus medius 08/23/2014 09/19/2020 Greater trochanteric bursitis of left hip 08/07/2014 09/19/2020 Left hip impingement syndrome 08/07/2014 09/19/2020 Colitis 04/13/2014 07/30/2017 Stiffness in joint 12/02/2011 0 Right Breast Cancer 10/13/2011 01/09/20 23 Overview: Right breast radiation, no chemo. Surgery in 2011. 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 Last Assessment & Plan: Right breast radiation, no chemo. Surgery in 2011. 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 Declines aromatase inhibitor. States told Dr. Ruby wouldn't take it. States has been almost 5 years. Visit for gynecologic examination 10/05/2011 09/19/2020 Hypothyroid 05/21/2011 09/21/2013 Hair loss 06/18/2010 09/19/2020 Thyroid disorder 06/18/2010 09/19/2020 CKD (chronic kidney disease) stage 3, GFR 30-59 ml/min 05/20/2010 01/08/2023 Last Assessment & Plan: Assessment: Creatinine Date Value Ref Range Status 03/19/2021 1.38 (H) 0.58 - 0.96 mg/dL Final 01/17/2021 1.27 (H) 0.58 - 0.96 mg/dL Final 08/12/2020 1.29 (H) 0.58 - 0.96 mg/dL Final 06/19/2020 1.46 (H) 0.58 - 0.96 mg/dL Final Unspecified hypertrophic and atrophic condition of skin 06/14/2008 08/12/2015 Scar condition and fibrosis of skin 06/14/2008 08/12/2015 Abnormal mammogram, unspecified 03/19/2008 04/10/2008 GOITER NOS 08/26/2007 01/09/2016 OSTEOARTHRITIS 08/26/2007 01/09/2016 Overview: Hand and TS and LS spine VISUAL REFRACTION ERROR 08/26/200712/17 Sleep disturbance, unspecified 08/26/2007 01/09/2016 Unspecified hearing loss 08/26/2007 Irritable bowel syndrome 08/26/200712/2019 Anemia, unspecified 06/09/2005 08/31/20 08 Palpitations 07/06/2003 08/31/2008 Alopecia, unspecified 07/06/20032007 Diarrhea 08/31/2008 Need for prophylactic hormon e replacement therapy (postmenopausal) 09/10/2015 Unspecified vitamin D deficiency 06/29/2008 hx of breast cancer ER positive 09/10/2015 Dyspareunia 09/19/2020 Vaginismus 09/19/2020 documented as of this encounter (statuses as of 05/04/2023) [facility]03-08-2022 History of Past illness Narrative* Problem Noted Date Diagnosed Date Resolved Date Thumb pain, left 12/23/2021 01/08/2023 Hypertensive emergency 12/22/201905/02 Chest pain 11/22/2019 09/19/2020 Overview: History of HTN and history of SVT with normal cath in the past, Recently admitted to OSH in October with HTN urgency and neurological evaluation of slurred speech, SALTER and MS changes. 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 Antihypertensives were adjusted. She presents to ED complaining of chest pressure. Patient states she has had midsternal chest pressure for the past 2 weeks with exertion. It resolves with rest. She has associated shortness of breath and also improves with rest. She had lightheadedness but no diaphoresis, nausea. In the ED the ECG shows NSR at 63 bpm, no STEMI. New T wave inversion in AVL, compared to prior 10/19/2019. She was found to have elevated troponin and hyperkaliemia in setting of new onset BRIGHT on CKD with creatine 1.68 (baseline creatine- 1.1-1.2) CK/CKMB negative. Patient transferred to [facility] for further evaluation. OSH Echo 10/2019 EF 65%, stage 1 diastolic dysfunction, mild TR Plan cycle enzymes CK 150 Trop T 0.053 BP management treatment of BRIGHT improved off cozaar and maxzide creat 1.35 repeat echo completed and pending Stress test scheduled 11/24/2019 at 7:45 No scar or ischemia Hyperkalemia 11/22/2019 12/15/2019 Overview: see plan CKD BRIGHT (acute kidney injury) 11/22/2019 Overview: see plan BRIGHT Atypical chest pain 11/22/2019 09/19/20 20 Delirium 10/19/2019 10/22/2019 Headache 10/18/2019 10/22/2019 Impingement syndrome of left shoulder 03/01/2019 09/19/2020 Atrophy of gluteus cralyn muscle 01/17/2019 09/19/2020 Bilateral leg weakness 04/06/201809/19 Strain of rotator cuff 01/06/201709/19 Localized edema 11/10/2016 09/19/2020 Abnormality of gait 09/09/2015 09/19/20 20 Tendinopathy of left gluteus medius 08/23/2014 09/19/2020 Greater trochanteric bursitis of left hip 08/07/2014 09/19/2020 Left hip impingement syndrome 08/07/2014 09/19/2020 Colitis 04/13/2014 07/30/2017 Stiffness in joint 12/02/2011 0 Right Breast Cancer 10/13/2011 01/09/20 23 Overview: Right breast radiation, no chemo. Surgery in 2011. 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 Last Assessment & Plan: Right breast radiation, no chemo. Surgery in 2011. 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 Declines aromatase inhibitor. States told Dr. Ruby wouldn't take it. States has been almost 5 years. Visit for gynecologic examination 10/05/2011 09/19/2020 Hypothyroid 05/21/2011 09/21/2013 Hair loss 06/18/2010 09/19/2020 Thyroid disorder 06/18/2010 09/19/2020 CKD (chronic kidney disease) stage 3, GFR 30-59 ml/min 05/20/2010 01/08/2023 Last Assessment & Plan: Assessment: Creatinine Date Value Ref Range Status 03/19/2021 1.38 (H) 0.58 - 0.96 mg/dL Final 01/17/2021 1.27 (H) 0.58 - 0.96 mg/dL Final 08/12/2020 1.29 (H) 0.58 - 0.96 mg/dL Final 06/19/2020 1.46 (H) 0.58 - 0.96 mg/dL Final Unspecified hypertrophic and atrophic condition of skin 06/14/2008 08/12/2015 Scar condition and fibrosis of skin 06/14/2008 08/12/2015 Abnormal mammogram, unspecified 03/19/2008 04/10/2008 GOITER NOS 08/26/2007 01/09/2016 OSTEOARTHRITIS 08/26/2007 01/09/2016 Overview: Hand and TS and LS spine VISUAL REFRACTION ERROR 08/26/200712/17 Sleep disturbance, unspecified 08/26/2007 01/09/2016 Unspecified hearing loss 08/26/2007 Irritable bowel syndrome 08/26/200712/2019 Anemia, unspecified 06/09/2005 08/31/20 08 Palpitations 07/06/2003 08/31/2008 Alopecia, unspecified 07/06/20032007 Diarrhea 08/31/2008 Need for prophylactic hormon e replacement therapy (postmenopausal) 09/10/2015 Unspecified vitamin D deficiency 06/29/2008 hx of breast cancer ER positive 09/10/2015 Dyspareunia 09/19/2020 Vaginismus 09/19/2020 documented as of this encounter (statuses as of 07/06/2023) [facility]03-08-[facility]22 History of Past illness Narrative* Problem Noted Date Diagnosed Date Resolved Date Thumb pain, left 12/23/2021 01/08/2023 Hypertensive emergency 12/22/201905/02 Chest pain 11/22/2019 09/19/2020 Overview: History of HTN and history of SVT with normal cath in the past, Recently admitted to OSH in October with HTN urgency and neurological evaluation of slurred speech, SALTER and MS changes. 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 Antihypertensives were adjusted. She presents to ED complaining of chest pressure. Patient states she has had midsternal chest pressure for the past 2 weeks with exertion. It resolves with rest. She has associated shortness of breath and also improves with rest. She had lightheadedness but no diaphoresis, nausea. In the ED the ECG shows NSR at 63 bpm, no STEMI. New T wave inversion in AVL, compared to prior 10/19/2019. She was found to have elevated troponin and hyperkaliemia in setting of new onset BRIGHT on CKD with creatine 1.68 (baseline creatine- 1.1-1.2) CK/CKMB negative. Patient transferred to main campus for further evaluation. OSH Echo 10/2019 EF 65%, stage 1 diastolic dysfunction, mild TR Plan cycle enzymes CK 150 Trop T 0.053 BP management treatment of BRIGHT improved off cozaar and maxzide creat 1.35 repeat echo completed and pending Stress test scheduled 11/24/2019 at 7:45 No scar or ischemia Hyperkalemia 11/22/2019 12/15/2019 Overview: see plan CKD BRIGHT (acute kidney injury) 11/22/2019 Overview: see plan BRIGHT Atypical chest pain 11/22/2019 09/19/20 20 Delirium 10/19/2019 10/22/2019 Headache 10/18/2019 10/22/2019 Impingement syndrome of left shoulder 03/01/2019 09/19/2020 Atrophy of gluteus carlyn muscle 01/17/2019 09/19/2020 Bilateral leg weakness 04/06/201809/19 Strain of rotator cuff 01/06/201709/19 Localized edema 11/10/2016 09/19/2020 Abnormality of gait 09/09/2015 09/19/20 20 Tendinopathy of left gluteus medius 08/23/2014 09/19/2020 Greater trochanteric bursitis of left hip 08/07/2014 09/19/2020 Left hip impingement syndrome 08/07/2014 09/19/2020 Colitis 04/13/2014 07/30/2017 Stiffness in joint 12/02/2011 0 Right Breast Cancer 10/13/2011 01/09/20 23 Overview: Right breast radiation, no chemo. Surgery in 2011. 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 Last Assessment & Plan: Right breast radiation, no chemo. Surgery in 2011. 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 Declines aromatase inhibitor. States told Dr. Ruby wouldn't take it. States has been almost 5 years. Visit for gynecologic examination 10/05/2011 09/19/2020 Hypothyroid 05/21/2011 09/21/2013 Hair loss 06/18/2010 09/19/2020 Thyroid disorder 06/18/2010 09/19/2020 CKD (chronic kidney disease) stage 3, GFR 30-59 ml/min 05/20/2010 01/08/2023 Last Assessment & Plan: Assessment: Creatinine Date Value Ref Range Status 03/19/2021 1.38 (H) 0.58 - 0.96 mg/dL Final 01/17/2021 1.27 (H) 0.58 - 0.96 mg/dL Final 08/12/2020 1.29 (H) 0.58 - 0.96 mg/dL Final 06/19/2020 1.46 (H) 0.58 - 0.96 mg/dL Final Unspecified hypertrophic and atrophic condition of skin 06/14/2008 08/12/2015 Scar condition and fibrosis of skin 06/14/2008 08/12/2015 Abnormal mammogram, unspecified 03/19/2008 04/10/2008 GOITER NOS 08/26/2007 01/09/2016 OSTEOARTHRITIS 08/26/2007 01/09/2016 Overview: Hand and TS and LS spine VISUAL REFRACTION ERROR 08/26/200712/17 Sleep disturbance, unspecified 08/26/2007 01/09/2016 Unspecified hearing loss 08/26/2007 Irritable bowel syndrome 08/26/200712/2019 Anemia, unspecified 06/09/2005 08/31/20 08 Palpitations 07/06/2003 08/31/2008 Alopecia, unspecified 07/06/20032007 Diarrhea 08/31/2008 Need for prophylactic hormon e replacement therapy (postmenopausal) 09/10/2015 Unspecified vitamin D deficiency 06/29/2008 hx of breast cancer ER positive 09/10/2015 Dyspareunia 09/19/2020 Vaginismus 09/19/2020 documented as of this encounter (statuses as of 07/16/2023) [facility]03-08-2022 History of Past illness Narrative* Problem Noted Date Diagnosed Date Resolved Date Thumb pain, left 12/23/2021 01/08/2023 Hypertensive emergency 12/22/201905/02 Chest pain 11/22/2019 09/19/2020 Overview: History of HTN and history of SVT with normal cath in the past, Recently admitted to OSH in October with HTN urgency and neurological evaluation of slurred speech, SALTER and MS changes. 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 Antihypertensives were adjusted. She presents to ED complaining of chest pressure. Patient states she has had midsternal chest pressure for the past 2 weeks with exertion. It resolves with rest. She has associated shortness of breath and also improves with rest. She had lightheadedness but no diaphoresis, nausea. In the ED the ECG shows NSR at 63 bpm, no STEMI. New T wave inversion in AVL, compared to prior 10/19/2019. She was found to have elevated troponin and hyperkaliemia in setting of new onset BRIGHT on CKD with creatine 1.68 (baseline creatine- 1.1-1.2) CK/CKMB negative. Patient transferred to [facility] for further evaluation. OSH Echo 10/2019 EF 65%, stage 1 diastolic dysfunction, mild TR Plan cycle enzymes CK 150 Trop T 0.053 BP management treatment of BRIGHT improved off cozaar and maxzide creat 1.35 repeat echo completed and pending Stress test scheduled 11/24/2019 at 7:45 No scar or ischemia Hyperkalemia 11/22/2019 12/15/2019 Overview: see plan CKD BRIGHT (acute kidney injury) 11/22/2019 Overview: see plan BRIGHT Atypical chest pain 11/22/2019 09/19/20 20 Delirium 10/19/2019 10/22/2019 Headache 10/18/2019 10/22/2019 Impingement syndrome of left shoulder 03/01/2019 09/19/2020 Atrophy of gluteus carlyn muscle 01/17/2019 09/19/2020 Bilateral leg weakness 04/06/201809/19 Strain of rotator cuff 01/06/201709/19 Localized edema 11/10/2016 09/19/2020 Abnormality of gait 09/09/2015 09/19/20 20 Tendinopathy of left gluteus medius 08/23/2014 09/19/2020 Greater trochanteric bursitis of left hip 08/07/2014 09/19/2020 Left hip impingement syndrome 08/07/2014 09/19/2020 Colitis 04/13/2014 07/30/2017 Stiffness in joint 12/02/2011 0 Right Breast Cancer 10/13/2011 01/09/20 23 Overview: Right breast radiation, no chemo. Surgery in 2011. 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 Last Assessment & Plan: Right breast radiation, no chemo. Surgery in 2011. 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 Declines aromatase inhibitor. States told Dr. Ruby wouldn't take it. States has been almost 5 years. Visit for gynecologic examination 10/05/2011 09/19/2020 Hypothyroid 05/21/2011 09/21/2013 Hair loss 06/18/2010 09/19/2020 Thyroid disorder 06/18/2010 09/19/2020 CKD (chronic kidney disease) stage 3, GFR 30-59 ml/min 05/20/2010 01/08/2023 Last Assessment & Plan: Assessment: Creatinine Date Value Ref Range Status 03/19/2021 1.38 (H) 0.58 - 0.96 mg/dL Final 01/17/2021 1.27 (H) 0.58 - 0.96 mg/dL Final 08/12/2020 1.29 (H) 0.58 - 0.96 mg/dL Final 06/19/2020 1.46 (H) 0.58 - 0.96 mg/dL Final Unspecified hypertrophic and atrophic condition of skin 06/14/2008 08/12/2015 Scar condition and fibrosis of skin 06/14/2008 08/12/2015 Abnormal mammogram, unspecified 03/19/2008 04/10/2008 GOITER NOS 08/26/2007 01/09/2016 OSTEOARTHRITIS 08/26/2007 01/09/2016 Overview: Hand and TS and LS spine VISUAL REFRACTION ERROR 08/26/200712/17 Sleep disturbance, unspecified 08/26/2007 01/09/2016 Unspecified hearing loss 08/26/2007 Irritable bowel syndrome 08/26/200712/2019 Anemia, unspecified 06/09/2005 08/31/20 08 Palpitations 07/06/2003 08/31/2008 Alopecia, unspecified 07/06/20032007 Diarrhea 08/31/2008 Need for prophylactic hormon e replacement therapy (postmenopausal) 09/10/2015 Unspecified vitamin D deficiency 06/29/2008 hx of breast cancer ER positive 09/10/2015 Dyspareunia 09/19/2020 Vaginismus 09/19/2020 documented as of this encounter (statuses as of 08/05/2023) [facility]03[facility] History of Past illness Narrative* Problem Noted Date Diagnosed Date Resolved Date Thumb pain, left 12/23/2021 01/08/2023 Hypertensive emergency 12/22/201905/02 Chest pain 11/22/2019 09/19/2020 Overview: History of HTN and history of SVT with normal cath in the past, Recently admitted to OSH in October with HTN urgency and neurological evaluation of slurred speech, SALTER and MS changes. 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 Antihypertensives were adjusted. She presents to ED complaining of chest pressure. Patient states she has had midsternal chest pressure for the past 2 weeks with exertion. It resolves with rest. She has associated shortness of breath and also improves with rest. She had lightheadedness but no diaphoresis, nausea. In the ED the ECG shows NSR at 63 bpm, no STEMI. New T wave inversion in AVL, compared to prior 10/19/2019. She was found to have elevated troponin and hyperkaliemia in setting of new onset BRIGHT on CKD with creatine 1.68 (baseline creatine- 1.1-1.2) CK/CKMB negative. Patient transferred to [facility] for further evaluation. OSH Echo 10/2019 EF 65%, stage 1 diastolic dysfunction, mild TR Plan cycle enzymes CK 150 Trop T 0.053 BP management treatment of BRIGHT improved off cozaar and maxzide creat 1.35 repeat echo completed and pending Stress test scheduled 11/24/2019 at 7:45 No scar or ischemia Hyperkalemia 11/22/2019 12/15/2019 Overview: see plan CKD BRIGHT (acute kidney injury) 11/22/2019 Overview: see plan BRIGHT Atypical chest pain 11/22/2019 09/19/20 20 Delirium 10/19/2019 10/22/2019 Headache 10/18/2019 10/22/2019 Impingement syndrome of left shoulder 03/01/2019 09/19/2020 Atrophy of gluteus carlyn muscle 01/17/2019 09/19/2020 Bilateral leg weakness 04/06/201809/19 Strain of rotator cuff 01/06/201709/19 Localized edema 11/10/2016 09/19/2020 Abnormality of gait 09/09/2015 09/19/20 20 Tendinopathy of left gluteus medius 08/23/2014 09/19/2020 Greater trochanteric bursitis of left hip 08/07/2014 09/19/2020 Left hip impingement syndrome 08/07/2014 09/19/2020 Colitis 04/13/2014 07/30/2017 Stiffness in joint 12/02/2011 0 Right Breast Cancer 10/13/2011 01/09/20 23 Overview: Right breast radiation, no chemo. Surgery in 2011. 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 Last Assessment & Plan: Right breast radiation, no chemo. Surgery in 2011. 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 Declines aromatase inhibitor. States told Dr. Ruby wouldn't take it. States has been almost 5 years. Visit for gynecologic examination 10/05/2011 09/19/2020 Hypothyroid 05/21/2011 09/21/2013 Hair loss 06/18/2010 09/19/2020 Thyroid disorder 06/18/2010 09/19/2020 CKD (chronic kidney disease) stage 3, GFR 30-59 ml/min 05/20/2010 01/08/2023 Last Assessment & Plan: Assessment: Creatinine Date Value Ref Range Status 03/19/2021 1.38 (H) 0.58 - 0.96 mg/dL Final 01/17/2021 1.27 (H) 0.58 - 0.96 mg/dL Final 08/12/2020 1.29 (H) 0.58 - 0.96 mg/dL Final 06/19/2020 1.46 (H) 0.58 - 0.96 mg/dL Final Unspecified hypertrophic and atrophic condition of skin 06/14/2008 08/12/2015 Scar condition and fibrosis of skin 06/14/2008 08/12/2015 Abnormal mammogram, unspecified 03/19/2008 04/10/2008 GOITER NOS 08/26/2007 01/09/2016 OSTEOARTHRITIS 08/26/2007 01/09/2016 Overview: Hand and TS and LS spine VISUAL REFRACTION ERROR 08/26/200712/17 Sleep disturbance, unspecified 08/26/2007 01/09/2016 Unspecified hearing loss 08/26/2007 Irritable bowel syndrome 08/26/200712/2019 Anemia, unspecified 06/09/2005 08/31/20 08 Palpitations 07/06/2003 08/31/2008 Alopecia, unspecified 07/06/20032007 Diarrhea 08/31/2008 Need for prophylactic hormon e replacement therapy (postmenopausal) 09/10/2015 Unspecified vitamin D deficiency 06/29/2008 hx of breast cancer ER positive 09/10/2015 Dyspareunia 09/19/2020 Vaginismus 09/19/2020 documented as of this encounter (statuses as of 08/06/2023) [facility] History of Past illness Narrative* Problem Noted Date Diagnosed Date Resolved Date Thumb pain, left 12/23/2021 01/08/2023 Hypertensive emergency 12/22/201905/02 Chest pain 11/22/2019 09/19/2020 Overview: History of HTN and history of SVT with normal cath in the past, Recently admitted to OSH in October with HTN urgency and neurological evaluation of slurred speech, SALTER and MS changes. 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 Antihypertensives were adjusted. She presents to ED complaining of chest pressure. Patient states she has had midsternal chest pressure for the past 2 weeks with exertion. It resolves with rest. She has associated shortness of breath and also improves with rest. She had lightheadedness but no diaphoresis, nausea. In the ED the ECG shows NSR at 63 bpm, no STEMI. New T wave inversion in AVL, compared to prior 10/19/2019. She was found to have elevated troponin and hyperkaliemia in setting of new onset BRIGHT on CKD with creatine 1.68 (baseline creatine- 1.1-1.2) CK/CKMB negative. Patient transferred to [facility] for further evaluation. OSH Echo 10/2019 EF 65%, stage 1 diastolic dysfunction, mild TR Plan cycle enzymes CK 150 Trop T 0.053 BP management treatment of BRIGHT improved off cozaar and maxzide creat 1.35 repeat echo completed and pending Stress test scheduled 11/24/2019 at 7:45 No scar or ischemia Hyperkalemia 11/22/2019 12/15/2019 Overview: see plan CKD BRIGHT (acute kidney injury) 11/22/2019 Overview: see plan BRIGHT Atypical chest pain 11/22/2019 09/19/20 20 Delirium 10/19/2019 10/22/2019 Headache 10/18/2019 10/22/2019 Impingement syndrome of left shoulder 03/01/2019 09/19/2020 Atrophy of gluteus carlyn muscle 01/17/2019 09/19/2020 Bilateral leg weakness 04/06/201809/19 Strain of rotator cuff 01/06/201709/19 Localized edema 11/10/2016 09/19/2020 Abnormality of gait 09/09/2015 09/19/20 20 Tendinopathy of left gluteus medius 08/23/2014 09/19/2020 Greater trochanteric bursitis of left hip 08/07/2014 09/19/2020 Left hip impingement syndrome 08/07/2014 09/19/2020 Colitis 04/13/2014 07/30/2017 Stiffness in joint 12/02/2011 0 Right Breast Cancer 10/13/2011 01/09/20 23 Overview: Right breast radiation, no chemo. Surgery in 2011. 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 Last Assessment & Plan: Right breast radiation, no chemo. Surgery in 2011. 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 Declines aromatase inhibitor. States told Dr. Ruby wouldn't take it. States has been almost 5 years. Visit for gynecologic examination 10/05/2011 09/19/2020 Hypothyroid 05/21/2011 09/21/2013 Hair loss 06/18/2010 09/19/2020 Thyroid disorder 06/18/2010 09/19/2020 CKD (chronic kidney disease) stage 3, GFR 30-59 ml/min 05/20/2010 01/08/2023 Last Assessment & Plan: Assessment: Creatinine Date Value Ref Range Status 03/19/2021 1.38 (H) 0.58 - 0.96 mg/dL Final 01/17/2021 1.27 (H) 0.58 - 0.96 mg/dL Final 08/12/2020 1.29 (H) 0.58 - 0.96 mg/dL Final 06/19/2020 1.46 (H) 0.58 - 0.96 mg/dL Final Unspecified hypertrophic and atrophic condition of skin 06/14/2008 08/12/2015 Scar condition and fibrosis of skin 06/14/2008 08/12/2015 Abnormal mammogram, unspecified 03/19/2008 04/10/2008 GOITER NOS 08/26/2007 01/09/2016 OSTEOARTHRITIS 08/26/2007 01/09/2016 Overview: Hand and TS and LS spine VISUAL REFRACTION ERROR 08/26/200712/17 Sleep disturbance, unspecified 08/26/2007 01/09/2016 Unspecified hearing loss 08/26/2007 Irritable bowel syndrome 08/26/200712/2019 Anemia, unspecified 06/09/2005 08/31/20 08 Palpitations 07/06/2003 08/31/2008 Alopecia, unspecified 07/06/20032007 Diarrhea 08/31/2008 Need for prophylactic hormon e replacement therapy (postmenopausal) 09/10/2015 Unspecified vitamin D deficiency 06/29/2008 hx of breast cancer ER positive 09/10/2015 Dyspareunia 09/19/2020 Vaginismus 09/19/2020 documented as of this encounter (statuses as of 08/17/2023) [facility]03-08-2022 History of Past illness Narrative* Problem Noted Date Diagnosed Date Resolved Date Thumb pain, left 12/23/2021 01/08/2023 Hypertensive emergency 12/22/201905/02 Chest pain 11/22/2019 09/19/2020 Overview: History of HTN and history of SVT with normal cath in the past, Recently admitted to OSH in October with HTN urgency and neurological evaluation of slurred speech, SALTER and MS changes. 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 Antihypertensives were adjusted. She presents to ED complaining of chest pressure. Patient states she has had midsternal chest pressure for the past 2 weeks with exertion. It resolves with rest. She has associated shortness of breath and also improves with rest. She had lightheadedness but no diaphoresis, nausea. In the ED the ECG shows NSR at 63 bpm, no STEMI. New T wave inversion in AVL, compared to prior 10/19/2019. She was found to have elevated troponin and hyperkaliemia in setting of new onset BRIGHT on CKD with creatine 1.68 (baseline creatine- 1.1-1.2) CK/CKMB negative. Patient transferred to [facility] for further evaluation. OSH Echo 10/2019 EF 65%, stage 1 diastolic dysfunction, mild TR Plan cycle enzymes CK 150 Trop T 0.053 BP management treatment of BRIGHT improved off cozaar and maxzide creat 1.35 repeat echo completed and pending Stress test scheduled 11/24/2019 at 7:45 No scar or ischemia Hyperkalemia 11/22/2019 12/15/2019 Overview: see plan CKD BRIGHT (acute kidney injury) 11/22/2019 Overview: see plan BRIGHT Atypical chest pain 11/22/2019 09/19/20 20 Delirium 10/19/2019 10/22/2019 Headache 10/18/2019 10/22/2019 Impingement syndrome of left shoulder 03/01/2019 09/19/2020 Atrophy of gluteus carlyn muscle 01/17/2019 09/19/2020 Bilateral leg weakness 04/06/201809/19 Strain of rotator cuff 01/06/201709/19 Localized edema 11/10/2016 09/19/2020 Abnormality of gait 09/09/2015 09/19/20 20 Tendinopathy of left gluteus medius 08/23/2014 09/19/2020 Greater trochanteric bursitis of left hip 08/07/2014 09/19/2020 Left hip impingement syndrome 08/07/2014 09/19/2020 Colitis 04/13/2014 07/30/2017 Stiffness in joint 12/02/2011 0 Right Breast Cancer 10/13/2011 01/09/20 Overview: Right breast radiation, no chemo. Surgery in 2011. 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 Last Assessment & Plan: Right breast radiation, no chemo. Surgery in 2011. 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 Declines aromatase inhibitor. States told Dr. Ruby wouldn't take it. States has been almost 5 years. Visit for gynecologic examination 10/05/2011 09/19/2020 Hypothyroid 05/21/2011 09/21/2013 Hair loss 06/18/2010 09/19/2020 Thyroid disorder 06/18/2010 09/19/2020 CKD (chronic kidney disease) stage 3, GFR 30-59 ml/min 05/20/2010 01/08/2023 Last Assessment & Plan: Assessment: Creatinine Date Value Ref Range Status 03/19/2021 1.38 (H) 0.58 - 0.96 mg/dL Final 01/17/2021 1.27 (H) 0.58 - 0.96 mg/dL Final 08/12/2020 1.29 (H) 0.58 - 0.96 mg/dL Final 06/19/2020 1.46 (H) 0.58 - 0.96 mg/dL Final Unspecified hypertrophic and atrophic condition of skin 06/14/2008 08/12/2015 Scar condition and fibrosis of skin 06/14/2008 08/12/2015 Abnormal mammogram, unspecified 03/19/2008 04/10/2008 GOITER NOS 08/26/2007 01/09/2016 OSTEOARTHRITIS 08/26/2007 01/09/2016 Overview: Hand and TS and LS spine VISUAL REFRACTION ERROR 08/26/200712/17 Sleep disturbance, unspecified 08/26/2007 01/09/2016 Unspecified hearing loss 08/26/2007 Irritable bowel syndrome 08/26/200712/2019 Anemia, unspecified 06/09/2005 08/31/20 08 Palpitations 07/06/2003 08/31/2008 Alopecia, unspecified 07/06/20032007 Diarrhea 08/31/2008 Need for prophylactic hormon e replacement therapy (postmenopausal) 09/10/2015 Unspecified vitamin D deficiency 06/29/2008 hx of breast cancer ER positive 09/10/2015 Dyspareunia 09/19/2020 Vaginismus 09/19/2020 documented as of this encounter (statuses as of 08/18/2023) [facility]03-08-2022 History of Past illness Narrative* Problem Noted Date Diagnosed Date Resolved Date Thumb pain, left 12/23/2021 01/08/2023 Hypertensive emergency 12/22/201905/02 Chest pain 11/22/2019 09/19/2020 Overview: History of HTN and history of SVT with normal cath in the past, Recently admitted to OSH in October with HTN urgency and neurological evaluation of slurred speech, SALTER and MS changes. 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 Antihypertensives were adjusted. She presents to ED complaining of chest pressure. Patient states she has had midsternal chest pressure for the past 2 weeks with exertion. It resolves with rest. She has associated shortness of breath and also improves with rest. She had lightheadedness but no diaphoresis, nausea. In the ED the ECG shows NSR at 63 bpm, no STEMI. New T wave inversion in AVL, compared to prior 10/19/2019. She was found to have elevated troponin and hyperkaliemia in setting of new onset BRIGHT on CKD with creatine 1.68 (baseline creatine- 1.1-1.2) CK/CKMB negative. Patient transferred to [facility] for further evaluation. OSH Echo 10/2019 EF 65%, stage 1 diastolic dysfunction, mild TR Plan cycle enzymes CK 150 Trop T 0.053 BP management treatment of BRIGHT improved off cozaar and maxzide creat 1.35 repeat echo completed and pending Stress test scheduled 11/24/2019 at 7:45 No scar or ischemia Hyperkalemia 11/22/2019 12/15/2019 Overview: see plan CKD BRIGHT (acute kidney injury) 11/22/2019 Overview: see plan BRIGHT Atypical chest pain 11/22/2019 09/19/20 20 Delirium 10/19/2019 10/22/2019 Headache 10/18/2019 10/22/2019 Impingement syndrome of left shoulder 03/01/2019 09/19/2020 Atrophy of gluteus carlyn muscle 01/17/2019 09/19/2020 Bilateral leg weakness 04/06/201809/19 Strain of rotator cuff 01/06/201709/19 Localized edema 11/10/2016 09/19/2020 Abnormality of gait 09/09/2015 09/19/20 20 Tendinopathy of left gluteus medius 08/23/2014 09/19/2020 Greater trochanteric bursitis of left hip 08/07/2014 09/19/2020 Left hip impingement syndrome 08/07/2014 09/19/2020 Colitis 04/13/2014 07/30/2017 Stiffness in joint 12/02/2011 0 Right Breast Cancer 10/13/2011 01/09/20 23 Overview: Right breast radiation, no chemo. Surgery in 2011. 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 Last Assessment & Plan: Right breast radiation, no chemo. Surgery in 2011. 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 Declines aromatase inhibitor. States told Dr. Ruby wouldn't take it. States has been almost 5 years. Visit for gynecologic examination 10/05/2011 09/19/2020 Hypothyroid 05/21/2011 09/21/2013 Hair loss 06/18/2010 09/19/2020 Thyroid disorder 06/18/2010 09/19/2020 CKD (chronic kidney disease) stage 3, GFR 30-59 ml/min 05/20/2010 01/08/2023 Last Assessment & Plan: Assessment: Creatinine Date Value Ref Range Status 03/19/2021 1.38 (H) 0.58 - 0.96 mg/dL Final 01/17/2021 1.27 (H) 0.58 - 0.96 mg/dL Final 08/12/2020 1.29 (H) 0.58 - 0.96 mg/dL Final 06/19/2020 1.46 (H) 0.58 - 0.96 mg/dL Final Unspecified hypertrophic and atrophic condition of skin 06/14/2008 08/12/2015 Scar condition and fibrosis of skin 06/14/2008 08/12/2015 Abnormal mammogram, unspecified 03/19/2008 04/10/2008 GOITER NOS 08/26/2007 01/09/2016 OSTEOARTHRITIS 08/26/2007 01/09/2016 Overview: Hand and TS and LS spine VISUAL REFRACTION ERROR 08/26/200712/17 Sleep disturbance, unspecified 08/26/2007 01/09/2016 Unspecified hearing loss 08/26/2007 Irritable bowel syndrome 08/26/200712/2019 Anemia, unspecified 06/09/2005 08/31/20 08 Palpitations 07/06/2003 08/31/2008 Alopecia, unspecified 07/06/20032007 Diarrhea 08/31/2008 Need for prophylactic hormon e replacement therapy (postmenopausal) 09/10/2015 Unspecified vitamin D deficiency 06/29/2008 hx of breast cancer ER positive 09/10/2015 Dyspareunia 09/19/2020 Vaginismus 09/19/2020 documented as of this encounter (statuses as of 08/20/2023) [facility]03-08-2022 History of Past illness Narrative* Problem Noted Date Diagnosed Date Resolved Date Thumb pain, left 12/23/2021 01/08/2023 Hypertensive emergency 12/22/201905/02 Chest pain 11/22/2019 09/19/2020 Overview: History of HTN and history of SVT with normal cath in the past, Recently admitted to OSH in October with HTN urgency and neurological evaluation of slurred speech, SALTER and MS changes. 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 Antihypertensives were adjusted. She presents to ED complaining of chest pressure. Patient states she has had midsternal chest pressure for the past 2 weeks with exertion. It resolves with rest. She has associated shortness of breath and also improves with rest. She had lightheadedness but no diaphoresis, nausea. In the ED the ECG shows NSR at 63 bpm, no STEMI. New T wave inversion in AVL, compared to prior 10/19/2019. She was found to have elevated troponin and hyperkaliemia in setting of new onset BRIGHT on CKD with creatine 1.68 (baseline creatine- 1.1-1.2) CK/CKMB negative. Patient transferred to [facility] for further evaluation. OSH Echo 10/2019 EF 65%, stage 1 diastolic dysfunction, mild TR Plan cycle enzymes CK 150 Trop T 0.053 BP management treatment of BRIGHT improved off cozaar and maxzide creat 1.35 repeat echo completed and pending Stress test scheduled 11/24/2019 at 7:45 No scar or ischemia Hyperkalemia 11/22/2019 12/15/2019 Overview: see plan CKD BRIGHT (acute kidney injury) 11/22/2019 Overview: see plan BRGIHT Atypical chest pain 11/22/2019 09/19/20 20 Delirium 10/19/2019 10/22/2019 Headache 10/18/2019 10/22/2019 Impingement syndrome of left shoulder 03/01/2019 09/19/2020 Atrophy of gluteus carlyn muscle 01/17/2019 09/19/2020 Bilateral leg weakness 04/06/201809/19 Strain of rotator cuff 01/06/201709/19 Localized edema 11/10/2016 09/19/2020 Abnormality of gait 09/09/2015 09/19/20 20 Tendinopathy of left gluteus medius 08/23/2014 09/19/2020 Greater trochanteric bursitis of left hip 08/07/2014 09/19/2020 Left hip impingement syndrome 08/07/2014 09/19/2020 Colitis 04/13/2014 07/30/2017 Stiffness in joint 12/02/2011 0 Right Breast Cancer 10/13/2011 01/09/20 23 Overview: Right breast radiation, no chemo. Surgery in 2011. 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 Last Assessment & Plan: Right breast radiation, no chemo. Surgery in 2012. 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 Declines aromatase inhibitor. States told Dr. Ruby wouldn't take it. States has been almost 5 years. Visit for gynecologic examination 10/05/2011 09/19/2020 Hypothyroid 05/21/2011 09/21/2013 Hair loss 06/18/2010 09/19/2020 Thyroid disorder 06/18/2010 09/19/2020 CKD (chronic kidney disease) stage 3, GFR 30-59 ml/min 05/20/2010 01/08/2023 Last Assessment & Plan: Assessment: Creatinine Date Value Ref Range Status 03/19/2021 1.38 (H) 0.58 - 0.96 mg/dL Final 01/17/2021 1.27 (H) 0.58 - 0.96 mg/dL Final 08/12/2020 1.29 (H) 0.58 - 0.96 mg/dL Final 06/19/2020 1.46 (H) 0.58 - 0.96 mg/dL Final Unspecified hypertrophic and atrophic condition of skin 06/14/2008 08/12/2015 Scar condition and fibrosis of skin 06/14/2008 08/12/2015 Abnormal mammogram, unspecified 03/19/2008 04/10/2008 GOITER NOS 08/26/2007 01/09/2016 OSTEOARTHRITIS 08/26/2007 01/09/2016 Overview: Hand and TS and LS spine VISUAL REFRACTION ERROR 08/26/200712/17 Sleep disturbance, unspecified 08/26/2007 01/09/2016 Unspecified hearing loss 08/26/2007 Irritable bowel syndrome 08/26/200712/2019 Anemia, unspecified 06/09/2005 08/31/20 08 Palpitations 07/06/2003 08/31/2008 Alopecia, unspecified 07/06/20032007 Diarrhea 08/31/2008 Need for prophylactic hormon e replacement therapy (postmenopausal) 09/10/2015 Unspecified vitamin D deficiency 06/29/2008 hx of breast cancer ER positive 09/10/2015 Dyspareunia 09/19/2020 Vaginismus 09/19/2020 documented as of this encounter (statuses as of 08/20/2023) [facility]03-08-2022 History of Past illness Narrative* Problem Noted Date Diagnosed Date Resolved Date Thumb pain, left 12/23/2021 01/08/2023 Hypertensive emergency 12/22/201905/02 Chest pain 11/22/2019 09/19/2020 Overview: History of HTN and history of SVT with normal cath in the past, Recently admitted to OSH in October with HTN urgency and neurological evaluation of slurred speech, SALTER and MS changes. 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 Antihypertensives were adjusted. She presents to ED complaining of chest pressure. Patient states she has had midsternal chest pressure for the past 2 weeks with exertion. It resolves with rest. She has associated shortness of breath and also improves with rest. She had lightheadedness but no diaphoresis, nausea. In the ED the ECG shows NSR at 63 bpm, no STEMI. New T wave inversion in AVL, compared to prior 10/19/2019. She was found to have elevated troponin and hyperkaliemia in setting of new onset BRIGHT on CKD with creatine 1.68 (baseline creatine- 1.1-1.2) CK/CKMB negative. Patient transferred to [facility] for further evaluation. OSH Echo 10/2019 EF 65%, stage 1 diastolic dysfunction, mild TR Plan cycle enzymes CK 150 Trop T 0.053 BP management treatment of BRIGHT improved off cozaar and maxzide creat 1.35 repeat echo completed and pending Stress test scheduled 11/24/2019 at 7:45 No scar or ischemia Hyperkalemia 11/22/2019 12/15/2019 Overview: see plan CKD BRIGHT (acute kidney injury) 11/22/2019 Overview: see plan BRIGHT Atypical chest pain 11/22/2019 09/19/20 20 Delirium 10/19/2019 10/22/2019 Headache 10/18/2019 10/22/2019 Impingement syndrome of left shoulder 03/01/2019 09/19/2020 Atrophy of gluteus carlyn muscle 01/17/2019 09/19/2020 Bilateral leg weakness 04/06/201809/19 Strain of rotator cuff 01/06/201709/19 Localized edema 11/10/2016 09/19/2020 Abnormality of gait 09/09/2015 09/19/20 20 Tendinopathy of left gluteus medius 08/23/2014 09/19/2020 Greater trochanteric bursitis of left hip 08/07/2014 09/19/2020 Left hip impingement syndrome 08/07/2014 09/19/2020 Colitis 04/13/2014 07/30/2017 Stiffness in joint 12/02/2011 0 Right Breast Cancer 10/13/2011 01/09/20 23 Overview: Right breast radiation, no chemo. Surgery in 2011. 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 Last Assessment & Plan: Right breast radiation, no chemo. Surgery in 2011. 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 Declines aromatase inhibitor. States told Dr. Ruby wouldn't take it. States has been almost 5 years. Visit for gynecologic examination 10/05/2011 09/19/2020 Hypothyroid 05/21/2011 09/21/2013 Hair loss 06/18/2010 09/19/2020 Thyroid disorder 06/18/2010 09/19/2020 CKD (chronic kidney disease) stage 3, GFR 30-59 ml/min 05/20/2010 01/08/2023 Last Assessment & Plan: Assessment: Creatinine Date Value Ref Range Status 03/19/2021 1.38 (H) 0.58 - 0.96 mg/dL Final 01/17/2021 1.27 (H) 0.58 - 0.96 mg/dL Final 08/12/2020 1.29 (H) 0.58 - 0.96 mg/dL Final 06/19/2020 1.46 (H) 0.58 - 0.96 mg/dL Final Unspecified hypertrophic and atrophic condition of skin 06/14/2008 08/12/2015 Scar condition and fibrosis of skin 06/14/2008 08/12/2015 Abnormal mammogram, unspecified 03/19/2008 04/10/2008 GOITER NOS 08/26/2007 01/09/2016 OSTEOARTHRITIS 08/26/2007 01/09/2016 Overview: Hand and TS and LS spine VISUAL REFRACTION ERROR 08/26/200712/17 Sleep disturbance, unspecified 08/26/2007 01/09/2016 Unspecified hearing loss 08/26/2007 Irritable bowel syndrome 08/26/200712/2019 Anemia, unspecified 06/09/2005 08/31/20 08 Palpitations 07/06/2003 08/31/2008 Alopecia, unspecified 07/06/20032007 Diarrhea 08/31/2008 Need for prophylactic hormon e replacement therapy (postmenopausal) 09/10/2015 Unspecified vitamin D deficiency 06/29/2008 hx of breast cancer ER positive 09/10/2015 Dyspareunia 09/19/2020 Vaginismus 09/19/2020 documented as of this encounter (statuses as of 08/20/2023) [facility]03[facility] History of Past illness Narrative* Problem Noted Date Diagnosed Date Resolved Date Thumb pain, left 12/23/2021 01/08/2023 Hypertensive emergency 12/22/201905/02 Chest pain 11/22/2019 09/19/2020 Overview: History of HTN and history of SVT with normal cath in the past, Recently admitted to OSH in October with HTN urgency and neurological evaluation of slurred speech, SALTER and MS changes. 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 Antihypertensives were adjusted. She presents to ED complaining of chest pressure. Patient states she has had midsternal chest pressure for the past 2 weeks with exertion. It resolves with rest. She has associated shortness of breath and also improves with rest. She had lightheadedness but no diaphoresis, nausea. In the ED the ECG shows NSR at 63 bpm, no STEMI. New T wave inversion in AVL, compared to prior 10/19/2019. She was found to have elevated troponin and hyperkaliemia in setting of new onset BRIGHT on CKD with creatine 1.68 (baseline creatine- 1.1-1.2) CK/CKMB negative. Patient transferred to [facility] for further evaluation. OSH Echo 10/2019 EF 65%, stage 1 diastolic dysfunction, mild TR Plan cycle enzymes CK 150 Trop T 0.053 BP management treatment of BRIGHT improved off cozaar and maxzide creat 1.35 repeat echo completed and pending Stress test scheduled 11/24/2019 at 7:45 No scar or ischemia Hyperkalemia 11/22/2019 12/15/2019 Overview: see plan CKD BRIGHT (acute kidney injury) 11/22/2019 Overview: see plan BRIGHT Atypical chest pain 11/22/2019 09/19/20 20 Delirium 10/19/2019 10/22/2019 Headache 10/18/2019 10/22/2019 Impingement syndrome of left shoulder 03/01/2019 09/19/2020 Atrophy of gluteus carlyn muscle 01/17/2019 09/19/2020 Bilateral leg weakness 04/06/201809/19 Strain of rotator cuff 01/06/201709/19 Localized edema 11/10/2016 09/19/2020 Abnormality of gait 09/09/2015 09/19/20 20 Tendinopathy of left gluteus medius 08/23/2014 09/19/2020 Greater trochanteric bursitis of left hip 08/07/2014 09/19/2020 Left hip impingement syndrome 08/07/2014 09/19/2020 Colitis 04/13/2014 07/30/2017 Stiffness in joint 12/02/2011 0 Right Breast Cancer 10/13/2011 01/09/20 23 Overview: Right breast radiation, no chemo. Surgery in 2011. 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 Last Assessment & Plan: Right breast radiation, no chemo. Surgery in 2011. 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 Declines aromatase inhibitor. States told Dr. Ruby wouldn't take it. States has been almost 5 years. Visit for gynecologic examination 10/05/2011 09/19/2020 Hypothyroid 05/21/2011 09/21/2013 Hair loss 06/18/2010 09/19/2020 Thyroid disorder 06/18/2010 09/19/2020 CKD (chronic kidney disease) stage 3, GFR 30-59 ml/min 05/20/2010 01/08/2023 Last Assessment & Plan: Assessment: Creatinine Date Value Ref Range Status 03/19/2021 1.38 (H) 0.58 - 0.96 mg/dL Final 01/17/2021 1.27 (H) 0.58 - 0.96 mg/dL Final 08/12/2020 1.29 (H) 0.58 - 0.96 mg/dL Final 06/19/2020 1.46 (H) 0.58 - 0.96 mg/dL Final Unspecified hypertrophic and atrophic condition of skin 06/14/2008 08/12/2015 Scar condition and fibrosis of skin 06/14/2008 08/12/2015 Abnormal mammogram, unspecified 03/19/2008 04/10/2008 GOITER NOS 08/26/2007 01/09/2016 OSTEOARTHRITIS 08/26/2007 01/09/2016 Overview: Hand and TS and LS spine VISUAL REFRACTION ERROR 08/26/200712/17 Sleep disturbance, unspecified 08/26/2007 01/09/2016 Unspecified hearing loss 08/26/2007 Irritable bowel syndrome 08/26/200712/2019 Anemia, unspecified 06/09/2005 08/31/20 08 Palpitations 07/06/2003 08/31/2008 Alopecia, unspecified 07/06/20032007 Diarrhea 08/31/2008 Need for prophylactic hormon e replacement therapy (postmenopausal) 09/10/2015 Unspecified vitamin D deficiency 06/29/2008 hx of breast cancer ER positive 09/10/2015 Dyspareunia 09/19/2020 Vaginismus 09/19/2020 documented as of this encounter (statuses as of 08/20/2023) [facility] History of Past illness Narrative* Problem Noted Date Diagnosed Date Resolved Date Thumb pain, left 12/23/2021 01/08/2023 Hypertensive emergency 12/22/201905/02 Chest pain 11/22/2019 09/19/2020 Overview: History of HTN and history of SVT with normal cath in the past, Recently admitted to [facility] in October with HTN urgency and neurological evaluation of slurred speech, SALTER and MS changes. 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 Antihypertensives were adjusted. She presents to ED complaining of chest pressure. Patient states she has had midsternal chest pressure for the past 2 weeks with exertion. It resolves with rest. She has associated shortness of breath and also improves with rest. She had lightheadedness but no diaphoresis, nausea. In the ED the ECG shows NSR at 63 bpm, no STEMI. New T wave inversion in AVL, compared to prior 10/19/2019. She was found to have elevated troponin and hyperkaliemia in setting of new onset BRIGHT on CKD with creatine 1.68 (baseline creatine- 1.1-1.2) CK/CKMB negative. Patient transferred to [facility] for further evaluation. OSH Echo 10/2019 EF 65%, stage 1 diastolic dysfunction, mild TR Plan cycle enzymes CK 150 Trop T 0.053 BP management treatment of BRIGHT improved off cozaar and maxzide creat 1.35 repeat echo completed and pending Stress test scheduled 11/24/2019 at 7:45 No scar or ischemia Hyperkalemia 11/22/2019 12/15/2019 Overview: see plan CKD BRIGHT (acute kidney injury) 11/22/2019 Overview: see plan BRIGHT Atypical chest pain 11/22/2019 09/19/20 20 Delirium 10/19/2019 10/22/2019 Headache 10/18/2019 10/22/2019 Impingement syndrome of left shoulder 03/01/2019 09/19/2020 Atrophy of gluteus carlyn muscle 01/17/2019 09/19/2020 Bilateral leg weakness 04/06/201809/19 Strain of rotator cuff 01/06/201709/19 Localized edema 11/10/2016 09/19/2020 Abnormality of gait 09/09/2015 09/19/20 20 Tendinopathy of left gluteus medius 08/23/2014 09/19/2020 Greater trochanteric bursitis of left hip 08/07/2014 09/19/2020 Left hip impingement syndrome 08/07/2014 09/19/2020 Colitis 04/13/2014 07/30/2017 Stiffness in joint 12/02/2011 0 Right Breast Cancer 10/13/2011 01/09/20 23 Overview: Right breast radiation, no chemo. Surgery in 2011. 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 Last Assessment & Plan: Right breast radiation, no chemo. Surgery in 2011. 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 Declines aromatase inhibitor. States told Dr. Ruby wouldn't take it. States has been almost 5 years. Visit for gynecologic examination 10/05/2011 09/19/2020 Hypothyroid 05/21/2011 09/21/2013 Hair loss 06/18/2010 09/19/2020 Thyroid disorder 06/18/2010 09/19/2020 CKD (chronic kidney disease) stage 3, GFR 30-59 ml/min 05/20/2010 01/08/2023 Last Assessment & Plan: Assessment: Creatinine Date Value Ref Range Status 03/19/2021 1.38 (H) 0.58 - 0.96 mg/dL Final 01/17/2021 1.27 (H) 0.58 - 0.96 mg/dL Final 08/12/2020 1.29 (H) 0.58 - 0.96 mg/dL Final 06/19/2020 1.46 (H) 0.58 - 0.96 mg/dL Final Unspecified hypertrophic and atrophic condition of skin 06/14/2008 08/12/2015 Scar condition and fibrosis of skin 06/14/2008 08/12/2015 Abnormal mammogram, unspecified 03/19/2008 04/10/2008 GOITER NOS 08/26/2007 01/09/2016 OSTEOARTHRITIS 08/26/2007 01/09/2016 Overview: Hand and TS and LS spine VISUAL REFRACTION ERROR 08/26/200712/17 Sleep disturbance, unspecified 08/26/2007 01/09/2016 Unspecified hearing loss 08/26/2007 Irritable bowel syndrome 08/26/200712/2019 Anemia, unspecified 06/09/2005 08/31/20 08 Palpitations 07/06/2003 08/31/2008 Alopecia, unspecified 07/06/20032007 Diarrhea 08/31/2008 Need for prophylactic hormon e replacement therapy (postmenopausal) 09/10/2015 Unspecified vitamin D deficiency 06/29/2008 hx of breast cancer ER positive 09/10/2015 Dyspareunia 09/19/2020 Vaginismus 09/19/2020 documented as of this encounter (statuses as of 08/20/2023) [facility]03-08-2022 History of Past illness Narrative* Problem Noted Date Diagnosed Date Resolved Date Thumb pain, left 12/23/2021 01/08/2023 Hypertensive emergency 12/22/201905/02 Chest pain 11/22/2019 09/19/2020 Overview: History of HTN and history of SVT with normal cath in the past, Recently admitted to OSH in October with HTN urgency and neurological evaluation of slurred speech, SALTER and MS changes. 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 Antihypertensives were adjusted. She presents to ED complaining of chest pressure. Patient states she has had midsternal chest pressure for the past 2 weeks with exertion. It resolves with rest. She has associated shortness of breath and also improves with rest. She had lightheadedness but no diaphoresis, nausea. In the ED the ECG shows NSR at 63 bpm, no STEMI. New T wave inversion in AVL, compared to prior 10/19/2019. She was found to have elevated troponin and hyperkaliemia in setting of new onset BRIGHT on CKD with creatine 1.68 (baseline creatine- 1.1-1.2) CK/CKMB negative. Patient transferred to [facility] for further evaluation. OSH Echo 10/2019 EF 65%, stage 1 diastolic dysfunction, mild TR Plan cycle enzymes CK 150 Trop T 0.053 BP management treatment of BRIGHT improved off cozaar and maxzide creat 1.35 repeat echo completed and pending Stress test scheduled 11/24/2019 at 7:45 No scar or ischemia Hyperkalemia 11/22/2019 12/15/2019 Overview: see plan CKD BRIGHT (acute kidney injury) 11/22/2019 Overview: see plan BRIGHT Atypical chest pain 11/22/2019 09/19/20 20 Delirium 10/19/2019 10/22/2019 Headache 10/18/2019 10/22/2019 Impingement syndrome of left shoulder 03/01/2019 09/19/2020 Atrophy of gluteus carlyn muscle 01/17/2019 09/19/2020 Bilateral leg weakness 04/06/201809/19 Strain of rotator cuff 01/06/201709/19 Localized edema 11/10/2016 09/19/2020 Abnormality of gait 09/09/2015 09/19/20 20 Tendinopathy of left gluteus medius 08/23/2014 09/19/2020 Greater trochanteric bursitis of left hip 08/07/2014 09/19/2020 Left hip impingement syndrome 08/07/2014 09/19/2020 Colitis 04/13/2014 07/30/2017 Stiffness in joint 12/02/2011 0 Right Breast Cancer 10/13/2011 01/09/20 23 Overview: Right breast radiation, no chemo. Surgery in 2011. 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 Last Assessment & Plan: Right breast radiation, no chemo. Surgery in 2011. 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 Declines aromatase inhibitor. States told Dr. Ruby wouldn't take it. States has been almost 5 years. Visit for gynecologic examination 10/05/2011 09/19/2020 Hypothyroid 05/21/2011 09/21/2013 Hair loss 06/18/2010 09/19/2020 Thyroid disorder 06/18/2010 09/19/2020 CKD (chronic kidney disease) stage 3, GFR 30-59 ml/min 05/20/2010 01/08/2023 Last Assessment & Plan: Assessment: Creatinine Date Value Ref Range Status 03/19/2021 1.38 (H) 0.58 - 0.96 mg/dL Final 01/17/2021 1.27 (H) 0.58 - 0.96 mg/dL Final 08/12/2020 1.29 (H) 0.58 - 0.96 mg/dL Final 06/19/2020 1.46 (H) 0.58 - 0.96 mg/dL Final Unspecified hypertrophic and atrophic condition of skin 06/14/2008 08/12/2015 Scar condition and fibrosis of skin 06/14/2008 08/12/2015 Abnormal mammogram, unspecified 03/19/2008 04/10/2008 GOITER NOS 08/26/2007 01/09/2016 OSTEOARTHRITIS 08/26/2007 01/09/2016 Overview: Hand and TS and LS spine VISUAL REFRACTION ERROR 08/26/200712/17 Sleep disturbance, unspecified 08/26/2007 01/09/2016 Unspecified hearing loss 08/26/2007 Irritable bowel syndrome 08/26/200712/2019 Anemia, unspecified 06/09/2005 08/31/20 08 Palpitations 07/06/2003 08/31/2008 Alopecia, unspecified 07/06/20032007 Diarrhea 08/31/2008 Need for prophylactic hormon e replacement therapy (postmenopausal) 09/10/2015 Unspecified vitamin D deficiency 06/29/2008 hx of breast cancer ER positive 09/10/2015 Dyspareunia 09/19/2020 Vaginismus 09/19/2020 documented as of this encounter (statuses as of 08/22/2023) [facility]03-08-2022 History of Past illness Narrative* Problem Noted Date Diagnosed Date Resolved Date Thumb pain, left 12/23/2021 01/08/2023 Hypertensive emergency 12/22/201905/02 Chest pain 11/22/2019 09/19/2020 Overview: History of HTN and history of SVT with normal cath in the past, Recently admitted to OSH in October with HTN urgency and neurological evaluation of slurred speech, SALTER and MS changes. 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 Antihypertensives were adjusted. She presents to ED complaining of chest pressure. Patient states she has had midsternal chest pressure for the past 2 weeks with exertion. It resolves with rest. She has associated shortness of breath and also improves with rest. She had lightheadedness but no diaphoresis, nausea. In the ED the ECG shows NSR at 63 bpm, no STEMI. New T wave inversion in AVL, compared to prior 10/19/2019. She was found to have elevated troponin and hyperkaliemia in setting of new onset BRIGHT on CKD with creatine 1.68 (baseline creatine- 1.1-1.2) CK/CKMB negative. Patient transferred to [facility] for further evaluation. OSH Echo 10/2019 EF 65%, stage 1 diastolic dysfunction, mild TR Plan cycle enzymes CK 150 Trop T 0.053 BP management treatment of BRIGHT improved off cozaar and maxzide creat 1.35 repeat echo completed and pending Stress test scheduled 11/24/2019 at 7:45 No scar or ischemia Hyperkalemia 11/22/2019 12/15/2019 Overview: see plan CKD BRIGHT (acute kidney injury) 11/22/2019 Overview: see plan BRIGHT Atypical chest pain 11/22/2019 09/19/20 20 Delirium 10/19/2019 10/22/2019 Headache 10/18/2019 10/22/2019 Impingement syndrome of left shoulder 03/01/2019 09/19/2020 Atrophy of gluteus carlyn muscle 01/17/2019 09/19/2020 Bilateral leg weakness 04/06/201809/19 Strain of rotator cuff 01/06/201709/19 Localized edema 11/10/2016 09/19/2020 Abnormality of gait 09/09/2015 09/19/20 20 Tendinopathy of left gluteus medius 08/23/2014 09/19/2020 Greater trochanteric bursitis of left hip 08/07/2014 09/19/2020 Left hip impingement syndrome 08/07/2014 09/19/2020 Colitis 04/13/2014 07/30/2017 Stiffness in joint 12/02/2011 0 Right Breast Cancer 10/13/2011 01/09/20 23 Overview: Right breast radiation, no chemo. Surgery in 2011. 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 Last Assessment & Plan: Right breast radiation, no chemo. Surgery in 2011. 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 Declines aromatase inhibitor. States told Dr. Ruby wouldn't take it. States has been almost 5 years. Visit for gynecologic examination 10/05/2011 09/19/2020 Hypothyroid 05/21/2011 09/21/2013 Hair loss 06/18/2010 09/19/2020 Thyroid disorder 06/18/2010 09/19/2020 CKD (chronic kidney disease) stage 3, GFR 30-59 ml/min 05/20/2010 01/08/2023 Last Assessment & Plan: Assessment: Creatinine Date Value Ref Range Status 03/19/2021 1.38 (H) 0.58 - 0.96 mg/dL Final 01/17/2021 1.27 (H) 0.58 - 0.96 mg/dL Final 08/12/2020 1.29 (H) 0.58 - 0.96 mg/dL Final 06/19/2020 1.46 (H) 0.58 - 0.96 mg/dL Final Unspecified hypertrophic and atrophic condition of skin 06/14/2008 08/12/2015 Scar condition and fibrosis of skin 06/14/2008 08/12/2015 Abnormal mammogram, unspecified 03/19/2008 04/10/2008 GOITER NOS 08/26/2007 01/09/2016 OSTEOARTHRITIS 08/26/2007 01/09/2016 Overview: Hand and TS and LS spine VISUAL REFRACTION ERROR 08/26/200712/17 Sleep disturbance, unspecified 08/26/2007 01/09/2016 Unspecified hearing loss 08/26/2007 Irritable bowel syndrome 08/26/200712/2019 Anemia, unspecified 06/09/2005 08/31/20 08 Palpitations 07/06/2003 08/31/2008 Alopecia, unspecified 07/06/20032007 Diarrhea 08/31/2008 Need for prophylactic hormon e replacement therapy (postmenopausal) 09/10/2015 Unspecified vitamin D deficiency 06/29/2008 hx of breast cancer ER positive 09/10/2015 Dyspareunia 09/19/2020 Vaginismus 09/19/2020 documented as of this encounter (statuses as of 08/31/2023) [facility]03-08-2022 History of Past illness Narrative* Problem Noted Date Diagnosed Date Resolved Date Thumb pain, left 12/23/2021 01/08/2023 Hypertensive emergency 12/22/201905/02 Chest pain 11/22/2019 09/19/2020 Overview: History of HTN and history of SVT with normal cath in the past, Recently admitted to OSH in October with HTN urgency and neurological evaluation of slurred speech, SALTER and MS changes. 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 Antihypertensives were adjusted. She presents to ED complaining of chest pressure. Patient states she has had midsternal chest pressure for the past 2 weeks with exertion. It resolves with rest. She has associated shortness of breath and also improves with rest. She had lightheadedness but no diaphoresis, nausea. In the ED the ECG shows NSR at 63 bpm, no STEMI. New T wave inversion in AVL, compared to prior 10/19/2019. She was found to have elevated troponin and hyperkaliemia in setting of new onset BRIGHT on CKD with creatine 1.68 (baseline creatine- 1.1-1.2) CK/CKMB negative. Patient transferred to [facility] for further evaluation. OSH Echo 10/2019 EF 65%, stage 1 diastolic dysfunction, mild TR Plan cycle enzymes CK 150 Trop T 0.053 BP management treatment of BRIGHT improved off cozaar and maxzide creat 1.35 repeat echo completed and pending Stress test scheduled 11/24/2019 at 7:45 No scar or ischemia Hyperkalemia 11/22/2019 12/15/2019 Overview: see plan CKD BRIGHT (acute kidney injury) 11/22/2019 Overview: see plan BRIGHT Atypical chest pain 11/22/2019 09/19/20 20 Delirium 10/19/2019 10/22/2019 Headache 10/18/2019 10/22/2019 Impingement syndrome of left shoulder 03/01/2019 09/19/2020 Atrophy of gluteus carlyn muscle 01/17/2019 09/19/2020 Bilateral leg weakness 04/06/201809/19 Strain of rotator cuff 01/06/201709/19 Localized edema 11/10/2016 09/19/2020 Abnormality of gait 09/09/2015 09/19/20 20 Tendinopathy of left gluteus medius 08/23/2014 09/19/2020 Greater trochanteric bursitis of left hip 08/07/2014 09/19/2020 Left hip impingement syndrome 08/07/2014 09/19/2020 Colitis 04/13/2014 07/30/2017 Stiffness in joint 12/02/2011 0 Right Breast Cancer 10/13/2011 01/09/20 23 Overview: Right breast radiation, no chemo. Surgery in 2011. 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 Last Assessment & Plan: Right breast radiation, no chemo. Surgery in 2011. 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 Declines aromatase inhibitor. States told Dr. Ruby wouldn't take it. States has been almost 5 years. Visit for gynecologic examination 10/05/2011 09/19/2020 Hypothyroid 05/21/2011 09/21/2013 Hair loss 06/18/2010 09/19/2020 Thyroid disorder 06/18/2010 09/19/2020 CKD (chronic kidney disease) stage 3, GFR 30-59 ml/min 05/20/2010 01/08/2023 Last Assessment & Plan: Assessment: Creatinine Date Value Ref Range Status 03/19/2021 1.38 (H) 0.58 - 0.96 mg/dL Final 01/17/2021 1.27 (H) 0.58 - 0.96 mg/dL Final 08/12/2020 1.29 (H) 0.58 - 0.96 mg/dL Final 06/19/2020 1.46 (H) 0.58 - 0.96 mg/dL Final Unspecified hypertrophic and atrophic condition of skin 06/14/2008 08/12/2015 Scar condition and fibrosis of skin 06/14/2008 08/12/2015 Abnormal mammogram, unspecified 03/19/2008 04/10/2008 GOITER NOS 08/26/2007 01/09/2016 OSTEOARTHRITIS 08/26/2007 01/09/2016 Overview: Hand and TS and LS spine VISUAL REFRACTION ERROR 08/26/200712/17 Sleep disturbance, unspecified 08/26/2007 01/09/2016 Unspecified hearing loss 08/26/2007 Irritable bowel syndrome 08/26/200712/2019 Anemia, unspecified 06/09/2005 08/31/20 08 Palpitations 07/06/2003 08/31/2008 Alopecia, unspecified 07/06/20032007 Diarrhea 08/31/2008 Need for prophylactic hormon e replacement therapy (postmenopausal) 09/10/2015 Unspecified vitamin D deficiency 06/29/2008 hx of breast cancer ER positive 09/10/2015 Dyspareunia 09/19/2020 Vaginismus 09/19/2020 documented as of this encounter (statuses as of 09/02/2023) [facility]03-08-2022 History of Past illness Narrative* Problem Noted Date Diagnosed Date Resolved Date Thumb pain, left 12/23/2021 01/08/2023 Hypertensive emergency 12/22/201905/02 Chest pain 11/22/2019 09/19/2020 Overview: History of HTN and history of SVT with normal cath in the past, Recently admitted to OSH in October with HTN urgency and neurological evaluation of slurred speech, SALTER and MS changes. 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 Antihypertensives were adjusted. She presents to ED complaining of chest pressure. Patient states she has had midsternal chest pressure for the past 2 weeks with exertion. It resolves with rest. She has associated shortness of breath and also improves with rest. She had lightheadedness but no diaphoresis, nausea. In the ED the ECG shows NSR at 63 bpm, no STEMI. New T wave inversion in AVL, compared to prior 10/19/2019. She was found to have elevated troponin and hyperkaliemia in setting of new onset BRIGHT on CKD with creatine 1.68 (baseline creatine- 1.1-1.2) CK/CKMB negative. Patient transferred to [facility] for further evaluation. OSH Echo 10/2019 EF 65%, stage 1 diastolic dysfunction, mild TR Plan cycle enzymes CK 150 Trop T 0.053 BP management treatment of BRIGHT improved off cozaar and maxzide creat 1.35 repeat echo completed and pending Stress test scheduled 11/24/2019 at 7:45 No scar or ischemia Hyperkalemia 11/22/2019 12/15/2019 Overview: see plan CKD BRIGHT (acute kidney injury) 11/22/2019 Overview: see plan BRIGHT Atypical chest pain 11/22/2019 09/19/20 20 Delirium 10/19/2019 10/22/2019 Headache 10/18/2019 10/22/2019 Impingement syndrome of left shoulder 03/01/2019 09/19/2020 Atrophy of gluteus carlyn muscle 01/17/2019 09/19/2020 Bilateral leg weakness 04/06/201809/19 Strain of rotator cuff 01/06/201709/19 Localized edema 11/10/2016 09/19/2020 Abnormality of gait 09/09/2015 09/19/20 20 Tendinopathy of left gluteus medius 08/23/2014 09/19/2020 Greater trochanteric bursitis of left hip 08/07/2014 09/19/2020 Left hip impingement syndrome 08/07/2014 09/19/2020 Colitis 04/13/2014 07/30/2017 Stiffness in joint 12/02/2011 0 Right Breast Cancer 10/13/2011 01/09/20 23 Overview: Right breast radiation, no chemo. Surgery in 2011. 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 Last Assessment & Plan: Right breast radiation, no chemo. Surgery in 2011. 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 Declines aromatase inhibitor. States told Dr. Ruby wouldn't take it. States has been almost 5 years. Visit for gynecologic examination 10/05/2011 09/19/2020 Hypothyroid 05/21/2011 09/21/2013 Hair loss 06/18/2010 09/19/2020 Thyroid disorder 06/18/2010 09/19/2020 CKD (chronic kidney disease) stage 3, GFR 30-59 ml/min 05/20/2010 01/08/2023 Last Assessment & Plan: Assessment: Creatinine Date Value Ref Range Status 03/19/2021 1.38 (H) 0.58 - 0.96 mg/dL Final 01/17/2021 1.27 (H) 0.58 - 0.96 mg/dL Final 08/12/2020 1.29 (H) 0.58 - 0.96 mg/dL Final 06/19/2020 1.46 (H) 0.58 - 0.96 mg/dL Final Unspecified hypertrophic and atrophic condition of skin 06/14/2008 08/12/2015 Scar condition and fibrosis of skin 06/14/2008 08/12/2015 Abnormal mammogram, unspecified 03/19/2008 04/10/2008 GOITER NOS 08/26/2007 01/09/2016 OSTEOARTHRITIS 08/26/2007 01/09/2016 Overview: Hand and TS and LS spine VISUAL REFRACTION ERROR 08/26/200712/17 Sleep disturbance, unspecified 08/26/2007 01/09/2016 Unspecified hearing loss 08/26/2007 Irritable bowel syndrome 08/26/200712/2019 Anemia, unspecified 06/09/2005 08/31/20 08 Palpitations 07/06/2003 08/31/2008 Alopecia, unspecified 07/06/20032007 Diarrhea 08/31/2008 Need for prophylactic hormon e replacement therapy (postmenopausal) 09/10/2015 Unspecified vitamin D deficiency 06/29/2008 hx of breast cancer ER positive 09/10/2015 Dyspareunia 09/19/2020 Vaginismus 09/19/2020 documented as of this encounter (statuses as of 09/08/2023) [facility]03-08-[facility] History of Past illness Narrative* Problem Noted Date Diagnosed Date Resolved Date Thumb pain, left 12/23/2021 01/08/2023 Hypertensive emergency 12/22/201905/02 Chest pain 11/22/2019 09/19/2020 Overview: History of HTN and history of SVT with normal cath in the past, Recently admitted to OSH in October with HTN urgency and neurological evaluation of slurred speech, SALTER and MS changes. 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 Antihypertensives were adjusted. She presents to ED complaining of chest pressure. Patient states she has had midsternal chest pressure for the past 2 weeks with exertion. It resolves with rest. She has associated shortness of breath and also improves with rest. She had lightheadedness but no diaphoresis, nausea. In the ED the ECG shows NSR at 63 bpm, no STEMI. New T wave inversion in AVL, compared to prior 10/19/2019. She was found to have elevated troponin and hyperkaliemia in setting of new onset BRIGHT on CKD with creatine 1.68 (baseline creatine- 1.1-1.2) CK/CKMB negative. Patient transferred to [facility] for further evaluation. OSH Echo 10/2019 EF 65%, stage 1 diastolic dysfunction, mild TR Plan cycle enzymes CK 150 Trop T 0.053 BP management treatment of BRIGHT improved off cozaar and maxzide creat 1.35 repeat echo completed and pending Stress test scheduled 11/24/2019 at 7:45 No scar or ischemia Hyperkalemia 11/22/2019 12/15/2019 Overview: see plan CKD BRIGHT (acute kidney injury) 11/22/2019 Overview: see plan BRIGHT Atypical chest pain 11/22/2019 09/19/20 20 Delirium 10/19/2019 10/22/2019 Headache 10/18/2019 10/22/2019 Impingement syndrome of left shoulder 03/01/2019 09/19/2020 Atrophy of gluteus carlyn muscle 01/17/2019 09/19/2020 Bilateral leg weakness 04/06/201809/19 Strain of rotator cuff 01/06/201709/19 Localized edema 11/10/2016 09/19/2020 Abnormality of gait 09/09/2015 09/19/20 20 Tendinopathy of left gluteus medius 08/23/2014 09/19/2020 Greater trochanteric bursitis of left hip 08/07/2014 09/19/2020 Left hip impingement syndrome 08/07/2014 09/19/2020 Colitis 04/13/2014 07/30/2017 Stiffness in joint 12/02/2011 0 Right Breast Cancer 10/13/2011 01/09/20 23 Overview: Right breast radiation, no chemo. Surgery in 2011. 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 Last Assessment & Plan: Right breast radiation, no chemo. Surgery in 2011. 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 Declines aromatase inhibitor. States told Dr. Ruby wouldn't take it. States has been almost 5 years. Visit for gynecologic examination 10/05/2011 09/19/2020 Hypothyroid 05/21/2011 09/21/2013 Hair loss 06/18/2010 09/19/2020 Thyroid disorder 06/18/2010 09/19/2020 CKD (chronic kidney disease) stage 3, GFR 30-59 ml/min 05/20/2010 01/08/2023 Last Assessment & Plan: Assessment: Creatinine Date Value Ref Range Status 03/19/2021 1.38 (H) 0.58 - 0.96 mg/dL Final 01/17/2021 1.27 (H) 0.58 - 0.96 mg/dL Final 08/12/2020 1.29 (H) 0.58 - 0.96 mg/dL Final 06/19/2020 1.46 (H) 0.58 - 0.96 mg/dL Final Unspecified hypertrophic and atrophic condition of skin 06/14/2008 08/12/2015 Scar condition and fibrosis of skin 06/14/2008 08/12/2015 Abnormal mammogram, unspecified 03/19/2008 04/10/2008 GOITER NOS 08/26/2007 01/09/2016 OSTEOARTHRITIS 08/26/2007 01/09/2016 Overview: Hand and TS and LS spine VISUAL REFRACTION ERROR 08/26/200712/17 Sleep disturbance, unspecified 08/26/2007 01/09/2016 Unspecified hearing loss 08/26/2007 Irritable bowel syndrome 08/26/200712/2019 Anemia, unspecified 06/09/2005 08/31/20 08 Palpitations 07/06/2003 08/31/2008 Alopecia, unspecified 07/06/20032007 Diarrhea 08/31/2008 Need for prophylactic hormon e replacement therapy (postmenopausal) 09/10/2015 Unspecified vitamin D deficiency 06/29/2008 hx of breast cancer ER positive 09/10/2015 Dyspareunia 09/19/2020 Vaginismus 09/19/2020 documented as of this encounter (statuses as of 09/10/2023) [facility]03[facility] History of Past illness Narrative* Problem Noted Date Diagnosed Date Resolved Date Thumb pain, left 12/23/2021 01/08/2023 Hypertensive emergency 12/22/201905/02 Chest pain 11/22/2019 09/19/2020 Overview: History of HTN and history of SVT with normal cath in the past, Recently admitted to OSH in October with HTN urgency and neurological evaluation of slurred speech, SALTER and MS changes. 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 Antihypertensives were adjusted. She presents to ED complaining of chest pressure. Patient states she has had midsternal chest pressure for the past 2 weeks with exertion. It resolves with rest. She has associated shortness of breath and also improves with rest. She had lightheadedness but no diaphoresis, nausea. In the ED the ECG shows NSR at 63 bpm, no STEMI. New T wave inversion in AVL, compared to prior 10/19/2019. She was found to have elevated troponin and hyperkaliemia in setting of new onset BRIGHT on CKD with creatine 1.68 (baseline creatine- 1.1-1.2) CK/CKMB negative. Patient transferred to [facility] for further evaluation. OSH Echo 10/2019 EF 65%, stage 1 diastolic dysfunction, mild TR Plan cycle enzymes CK 150 Trop T 0.053 BP management treatment of BRIGHT improved off cozaar and maxzide creat 1.35 repeat echo completed and pending Stress test scheduled 11/24/2019 at 7:45 No scar or ischemia Hyperkalemia 11/22/2019 12/15/2019 Overview: see plan CKD BRIGHT (acute kidney injury) 11/22/2019 Overview: see plan BRIGHT Atypical chest pain 11/22/2019 09/19/20 20 Delirium 10/19/2019 10/22/2019 Headache 10/18/2019 10/22/2019 Impingement syndrome of left shoulder 03/01/2019 09/19/2020 Atrophy of gluteus carlyn muscle 01/17/2019 09/19/2020 Bilateral leg weakness 04/06/201809/19 Strain of rotator cuff 01/06/201709/19 Localized edema 11/10/2016 09/19/2020 Abnormality of gait 09/09/2015 09/19/20 20 Tendinopathy of left gluteus medius 08/23/2014 09/19/2020 Greater trochanteric bursitis of left hip 08/07/2014 09/19/2020 Left hip impingement syndrome 08/07/2014 09/19/2020 Colitis 04/13/2014 07/30/2017 Stiffness in joint 12/02/2011 0 Right Breast Cancer 10/13/2011 01/09/20 23 Overview: Right breast radiation, no chemo. Surgery in 2011. 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 Last Assessment & Plan: Right breast radiation, no chemo. Surgery in 2011. 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 Declines aromatase inhibitor. States told Dr. Ruby wouldn't take it. States has been almost 5 years. Visit for gynecologic examination 10/05/2011 09/19/2020 Hypothyroid 05/21/2011 09/21/2013 Hair loss 06/18/2010 09/19/2020 Thyroid disorder 06/18/2010 09/19/2020 CKD (chronic kidney disease) stage 3, GFR 30-59 ml/min 05/20/2010 01/08/2023 Last Assessment & Plan: Assessment: Creatinine Date Value Ref Range Status 03/19/2021 1.38 (H) 0.58 - 0.96 mg/dL Final 01/17/2021 1.27 (H) 0.58 - 0.96 mg/dL Final 08/12/2020 1.29 (H) 0.58 - 0.96 mg/dL Final 06/19/2020 1.46 (H) 0.58 - 0.96 mg/dL Final Unspecified hypertrophic and atrophic condition of skin 06/14/2008 08/12/2015 Scar condition and fibrosis of skin 06/14/2008 08/12/2015 Abnormal mammogram, unspecified 03/19/2008 04/10/2008 GOITER NOS 08/26/2007 01/09/2016 OSTEOARTHRITIS 08/26/2007 01/09/2016 Overview: Hand and TS and LS spine VISUAL REFRACTION ERROR 08/26/200712/17 Sleep disturbance, unspecified 08/26/2007 01/09/2016 Unspecified hearing loss 08/26/2007 Irritable bowel syndrome 08/26/200712/2019 Anemia, unspecified 06/09/2005 08/31/20 08 Palpitations 07/06/2003 08/31/2008 Alopecia, unspecified 07/06/20032007 Diarrhea 08/31/2008 Need for prophylactic hormon e replacement therapy (postmenopausal) 09/10/2015 Unspecified vitamin D deficiency 06/29/2008 hx of breast cancer ER positive 09/10/2015 Dyspareunia 09/19/2020 Vaginismus 09/19/2020 documented as of this encounter (statuses as of 09/21/2023) [facility]03-08-2022 History of Past illness Narrative* Problem Noted Date Diagnosed Date Resolved Date Thumb pain, left 12/23/2021 01/08/2023 Hypertensive emergency 12/22/201905/02 Chest pain 11/22/2019 09/19/2020 Overview: History of HTN and history of SVT with normal cath in the past, Recently admitted to OSH in October with HTN urgency and neurological evaluation of slurred speech, SALTER and MS changes. 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 Antihypertensives were adjusted. She presents to ED complaining of chest pressure. Patient states she has had midsternal chest pressure for the past 2 weeks with exertion. It resolves with rest. She has associated shortness of breath and also improves with rest. She had lightheadedness but no diaphoresis, nausea. In the ED the ECG shows NSR at 63 bpm, no STEMI. New T wave inversion in AVL, compared to prior 10/19/2019. She was found to have elevated troponin and hyperkaliemia in setting of new onset BRIGHT on CKD with creatine 1.68 (baseline creatine- 1.1-1.2) CK/CKMB negative. Patient transferred to [facility] for further evaluation. OSH Echo 10/2019 EF 65%, stage 1 diastolic dysfunction, mild TR Plan cycle enzymes CK 150 Trop T 0.053 BP management treatment of BRIGHT improved off cozaar and maxzide creat 1.35 repeat echo completed and pending Stress test scheduled 11/24/2019 at 7:45 No scar or ischemia Hyperkalemia 11/22/2019 12/15/2019 Overview: see plan CKD BRIGHT (acute kidney injury) 11/22/2019 Overview: see plan BRIGHT Atypical chest pain 11/22/2019 09/19/20 20 Delirium 10/19/2019 10/22/2019 Headache 10/18/2019 10/22/2019 Impingement syndrome of left shoulder 03/01/2019 09/19/2020 Atrophy of gluteus carlyn muscle 01/17/2019 09/19/2020 Bilateral leg weakness 04/06/201809/19 Strain of rotator cuff 01/06/201709/19 Localized edema 11/10/2016 09/19/2020 Abnormality of gait 09/09/2015 09/19/20 20 Tendinopathy of left gluteus medius 08/23/2014 09/19/2020 Greater trochanteric bursitis of left hip 08/07/2014 09/19/2020 Left hip impingement syndrome 08/07/2014 09/19/2020 Colitis 04/13/2014 07/30/2017 Stiffness in joint 12/02/2011 0 Right Breast Cancer 10/13/2011 01/09/20 23 Overview: Right breast radiation, no chemo. Surgery in 2011. 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 Last Assessment & Plan: Right breast radiation, no chemo. Surgery in 2011. 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 Declines aromatase inhibitor. States told Dr. Ruby wouldn't take it. States has been almost 5 years. Visit for gynecologic examination 10/05/2011 09/19/2020 Hypothyroid 05/21/2011 09/21/2013 Hair loss 06/18/2010 09/19/2020 Thyroid disorder 06/18/2010 09/19/2020 CKD (chronic kidney disease) stage 3, GFR 30-59 ml/min 05/20/2010 01/08/2023 Last Assessment & Plan: Assessment: Creatinine Date Value Ref Range Status 03/19/2021 1.38 (H) 0.58 - 0.96 mg/dL Final 01/17/2021 1.27 (H) 0.58 - 0.96 mg/dL Final 08/12/2020 1.29 (H) 0.58 - 0.96 mg/dL Final 06/19/2020 1.46 (H) 0.58 - 0.96 mg/dL Final Unspecified hypertrophic and atrophic condition of skin 06/14/2008 08/12/2015 Scar condition and fibrosis of skin 06/14/2008 08/12/2015 Abnormal mammogram, unspecified 03/19/2008 04/10/2008 GOITER NOS 08/26/2007 01/09/2016 OSTEOARTHRITIS 08/26/2007 01/09/2016 Overview: Hand and TS and LS spine VISUAL REFRACTION ERROR 08/26/200712/17 Sleep disturbance, unspecified 08/26/2007 01/09/2016 Unspecified hearing loss 08/26/2007 Irritable bowel syndrome 08/26/200712/2019 Anemia, unspecified 06/09/2005 08/31/20 08 Palpitations 07/06/2003 08/31/2008 Alopecia, unspecified 07/06/20032007 Diarrhea 08/31/2008 Need for prophylactic hormon e replacement therapy (postmenopausal) 09/10/2015 Unspecified vitamin D deficiency 06/29/2008 hx of breast cancer ER positive 09/10/2015 Dyspareunia 09/19/2020 Vaginismus 09/19/2020 documented as of this encounter (statuses as of 10/01/2023) [facility]03-08-2022 History of Past illness Narrative* Problem Noted Date Diagnosed Date Resolved Date Thumb pain, left 12/23/2021 01/08/2023 Hypertensive emergency 12/22/201905/02 Chest pain 11/22/2019 09/19/2020 Overview: History of HTN and history of SVT with normal cath in the past, Recently admitted to OSH in October with HTN urgency and neurological evaluation of slurred speech, SALTER and MS changes. 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 Antihypertensives were adjusted. She presents to ED complaining of chest pressure. Patient states she has had midsternal chest pressure for the past 2 weeks with exertion. It resolves with rest. She has associated shortness of breath and also improves with rest. She had lightheadedness but no diaphoresis, nausea. In the ED the ECG shows NSR at 63 bpm, no STEMI. New T wave inversion in AVL, compared to prior 10/19/2019. She was found to have elevated troponin and hyperkaliemia in setting of new onset BRIGHT on CKD with creatine 1.68 (baseline creatine- 1.1-1.2) CK/CKMB negative. Patient transferred to [facility] for further evaluation. OSH Echo 10/2019 EF 65%, stage 1 diastolic dysfunction, mild TR Plan cycle enzymes CK 150 Trop T 0.053 BP management treatment of BRIGHT improved off cozaar and maxzide creat 1.35 repeat echo completed and pending Stress test scheduled 11/24/2019 at 7:45 No scar or ischemia Hyperkalemia 11/22/2019 12/15/2019 Overview: see plan CKD BRIGHT (acute kidney injury) 11/22/2019 Overview: see plan BRIGHT Atypical chest pain 11/22/2019 09/19/20 20 Delirium 10/19/2019 10/22/2019 Headache 10/18/2019 10/22/2019 Impingement syndrome of left shoulder 03/01/2019 09/19/2020 Atrophy of gluteus carlyn muscle 01/17/2019 09/19/2020 Bilateral leg weakness 04/06/201809/19 Strain of rotator cuff 01/06/201709/19 Localized edema 11/10/2016 09/19/2020 Abnormality of gait 09/09/2015 09/19/20 20 Tendinopathy of left gluteus medius 08/23/2014 09/19/2020 Greater trochanteric bursitis of left hip 08/07/2014 09/19/2020 Left hip impingement syndrome 08/07/2014 09/19/2020 Colitis 04/13/2014 07/30/2017 Stiffness in joint 12/02/2011 0 Right Breast Cancer 10/13/2011 01/09/20 23 Overview: Right breast radiation, no chemo. Surgery in 2011. 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 Last Assessment & Plan: Right breast radiation, no chemo. Surgery in 2011. 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 Declines aromatase inhibitor. States told Dr. Ruby wouldn't take it. States has been almost 5 years. Visit for gynecologic examination 10/05/2011 09/19/2020 Hypothyroid 05/21/2011 09/21/2013 Hair loss 06/18/2010 09/19/2020 Thyroid disorder 06/18/2010 09/19/2020 CKD (chronic kidney disease) stage 3, GFR 30-59 ml/min 05/20/2010 01/08/2023 Last Assessment & Plan: Assessment: Creatinine Date Value Ref Range Status 03/19/2021 1.38 (H) 0.58 - 0.96 mg/dL Final 01/17/2021 1.27 (H) 0.58 - 0.96 mg/dL Final 08/12/2020 1.29 (H) 0.58 - 0.96 mg/dL Final 06/19/2020 1.46 (H) 0.58 - 0.96 mg/dL Final Unspecified hypertrophic and atrophic condition of skin 06/14/2008 08/12/2015 Scar condition and fibrosis of skin 06/14/2008 08/12/2015 Abnormal mammogram, unspecified 03/19/2008 04/10/2008 GOITER NOS 08/26/2007 01/09/2016 OSTEOARTHRITIS 08/26/2007 01/09/2016 Overview: Hand and TS and LS spine VISUAL REFRACTION ERROR 08/26/200712/17 Sleep disturbance, unspecified 08/26/2007 01/09/2016 Unspecified hearing loss 08/26/2007 Irritable bowel syndrome 08/26/200712/2019 Anemia, unspecified 06/09/2005 08/31/20 08 Palpitations 07/06/2003 08/31/2008 Alopecia, unspecified 07/06/20032007 Diarrhea 08/31/2008 Need for prophylactic hormon e replacement therapy (postmenopausal) 09/10/2015 Unspecified vitamin D deficiency 06/29/2008 hx of breast cancer ER positive 09/10/2015 Dyspareunia 09/19/2020 Vaginismus 09/19/2020 documented as of this encounter (statuses as of 10/08/2023) [facility]03-06-2020 History of Past illness Narrative* Problem Noted Date Resolved Date Hypertensive emergency 12/22/2019 0 Chest pain 11/22/2019 09/19/2020 Overview: History of HTN and history of SVT with normal cath in the past, Recently admitted to OSH in October with HTN urgency and neurological evaluation of slurred speech, SALTER and MS changes. 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 Antihypertensives were adjusted. She presents to ED complaining of chest pressure. Patient states she has had midsternal chest pressure for the past 2 weeks with exertion. It resolves with rest. She has associated shortness of breath and also improves with rest. She had lightheadedness but no diaphoresis, nausea. In the ED the ECG shows NSR at 63 bpm, no STEMI. New T wave inversion in AVL, compared to prior 10/19/2019. She was found to have elevated troponin and hyperkaliemia in setting of new onset BRIGHT on CKD with creatine 1.68 (baseline creatine- 1.1-1.2) CK/CKMB negative. Patient transferred to [facility] for further evaluation. OSH Echo 10/2019 EF 65%, stage 1 diastolic dysfunction, mild TR Plan cycle enzymes CK 150 Trop T 0.053 BP management treatment of BRIGHT improved off cozaar and maxzide creat 1.35 repeat echo completed and pending Stress test scheduled 11/24/2019 at 7:45 No scar or ischemia Hyperkalemia 11/22/2019 12/15/2019 Overview: see plan CKD BRIGHT (acute kidney injury) 11/22/20192019 Overview: see plan BRIGHT Atypical chest pain 11/22/2019 09/19/2020 Delirium 10/19/2019 10/22/2019 Headache 10/18/2019 10/22/2019 Impingement syndrome of left shoulder 03/01/2019 09/19/2020 Atrophy of gluteus carlyn muscle 01/17/2019 09/19/2020 Bilateral leg weakness 04/06/2018 0 Strain of rotator cuff 01/06/2017 0 Localized edema 11/10/2016 09/19/2020 Abnormality of gait 09/09/2015 09/19/2020 Tendinopathy of left gluteus medius 08/23/2014 09/19/2020 Greater trochanteric bursitis of left hip 201309/19/2020 Left hip impingement syndrome 08/07/2014 Colitis 04/13/2014 07/30/2017 Stiffness in joint 12/02/2011 09/19/2020 Visit for gynecologic examination 10/05/2011 09/19/2020 Hypothyroid 05/21/2011 09/21/2013 Hair loss 06/18/2010 09/19/2020 Thyroid disorder 06/18/2010 09/19/2020 Unspecified hypertrophic and atrophic condition of skin 06/14/2008 08/12/2015 Scar condition and fibrosis of skin 06/14/2008 08/12/2015 Abnormal mammogram, unspecified 03/19/2008 04/10/2008 GOITER NOS 08/26/2007 01/09/2016 OSTEOARTHRITIS 08/26/2007 01/09/2016 Overview: Hand and TS and LS spine VISUAL REFRACTION ERROR 08/26/2007 01/09/20 16 Sleep disturbance, unspecified 08/26/2007 0 01/09/2016 Unspecified hearing loss 08/26/2007 016 Irritable bowel syndrome 08/26/2007 020 Anemia, unspecified 06/09/2005 08/31/2008 Palpitations 07/06/2003 08/31/2008 Alopecia, unspecified 07/06/2003 08/31/2008 Diarrhea 08/31/2008 Need for prophylactic hormon e replacement therapy (postmenopausal) 09/10/2015 Unspecified vitamin D deficiency 06/29/2008 hx of breast cancer ER positive 09/10/2015 Dyspareunia 09/19/2020 Vaginismus 09/19/2020 documented as of this encounter (statuses as of 01/20/2022) [facility]03-[facility]-2020 History of Past illness Narrative* Problem Noted Date Resolved Date Hypertensive emergency 12/22/2019 0 Chest pain 11/22/2019 09/19/2020 Overview: History of HTN and history of SVT with normal cath in the past, Recently admitted to OSH in October with HTN urgency and neurological evaluation of slurred speech, SALTER and MS changes. 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 Antihypertensives were adjusted. She presents to ED complaining of chest pressure. Patient states she has had midsternal chest pressure for the past 2 weeks with exertion. It resolves with rest. She has associated shortness of breath and also improves with rest. She had lightheadedness but no diaphoresis, nausea. In the ED the ECG shows NSR at 63 bpm, no STEMI. New T wave inversion in AVL, compared to prior 10/19/2019. She was found to have elevated troponin and hyperkaliemia in setting of new onset BRIGHT on CKD with creatine 1.68 (baseline creatine- 1.1-1.2) CK/CKMB negative. Patient transferred to [facility] for further evaluation. OSH Echo 10/2019 EF 65%, stage 1 diastolic dysfunction, mild TR Plan cycle enzymes CK 150 Trop T 0.053 BP management treatment of BRIGHT improved off cozaar and maxzide creat 1.35 repeat echo completed and pending Stress test scheduled 11/24/2019 at 7:45 No scar or ischemia Hyperkalemia 11/22/2019 12/15/2019 Overview: see plan CKD BRIGHT (acute kidney injury) 11/22/20192019 Overview: see plan BRIGHT Atypical chest pain 11/22/2019 09/19/2020 Delirium 10/19/2019 10/22/2019 Headache 10/18/2019 10/22/2019 Impingement syndrome of left shoulder 03/01/2019 09/19/2020 Atrophy of gluteus carlyn muscle 01/17/2019 09/19/2020 Bilateral leg weakness 04/06/2018 0 Strain of rotator cuff 01/06/2017 0 Localized edema 11/10/2016 09/19/2020 Abnormality of gait 09/09/2015 09/19/2020 Tendinopathy of left gluteus medius 08/23/2014 09/19/2020 Greater trochanteric bursitis of left hip 201309/19/2020 Left hip impingement syndrome 08/07/2014 Colitis 04/13/2014 07/30/2017 Stiffness in joint 12/02/2011 09/19/2020 Visit for gynecologic examination 10/05/2011 09/19/2020 Hypothyroid 05/21/2011 09/21/2013 Hair loss 06/18/2010 09/19/2020 Thyroid disorder 06/18/2010 09/19/2020 Unspecified hypertrophic and atrophic condition of skin 06/14/2008 08/12/2015 Scar condition and fibrosis of skin 06/14/2008 08/12/2015 Abnormal mammogram, unspecified 03/19/2008 04/10/2008 GOITER NOS 08/26/2007 01/09/2016 OSTEOARTHRITIS 08/26/2007 01/09/2016 Overview: Hand and TS and LS spine VISUAL REFRACTION ERROR 08/26/2007 01/09/20 16 Sleep disturbance, unspecified 08/26/2007 0 01/09/2016 Unspecified hearing loss 08/26/2007 016 Irritable bowel syndrome 08/26/2007 020 Anemia, unspecified 06/09/2005 08/31/2008 Palpitations 07/06/2003 08/31/2008 Alopecia, unspecified 07/06/2003 08/31/2008 Diarrhea 08/31/2008 Need for prophylactic hormon e replacement therapy (postmenopausal) 09/10/2015 Unspecified vitamin D deficiency 06/29/2008 hx of breast cancer ER positive 09/10/2015 Dyspareunia 09/19/2020 Vaginismus 09/19/2020 documented as of this encounter (statuses as of 01/20/2022) [facility]03-[facility] History of Past illness Narrative* Problem Noted Date Resolved Date Hypertensive emergency 12/22/2019 0 Chest pain 11/22/2019 09/19/2020 Overview: History of HTN and history of SVT with normal cath in the past, Recently admitted to OSH in October with HTN urgency and neurological evaluation of slurred speech, SALTER and MS changes. 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 Antihypertensives were adjusted. She presents to ED complaining of chest pressure. Patient states she has had midsternal chest pressure for the past 2 weeks with exertion. It resolves with rest. She has associated shortness of breath and also improves with rest. She had lightheadedness but no diaphoresis, nausea. In the ED the ECG shows NSR at 63 bpm, no STEMI. New T wave inversion in AVL, compared to prior 10/19/2019. She was found to have elevated troponin and hyperkaliemia in setting of new onset BRIGHT on CKD with creatine 1.68 (baseline creatine- 1.1-1.2) CK/CKMB negative. Patient transferred to [facility] for further evaluation. OSH Echo 10/2019 EF 65%, stage 1 diastolic dysfunction, mild TR Plan cycle enzymes CK 150 Trop T 0.053 BP management treatment of BRIGHT improved off cozaar and maxzide creat 1.35 repeat echo completed and pending Stress test scheduled 11/24/2019 at 7:45 No scar or ischemia Hyperkalemia 11/22/2019 12/15/2019 Overview: see plan CKD BRIGHT (acute kidney injury) 11/22/20192019 Overview: see plan BRIGHT Atypical chest pain 11/22/2019 09/19/2020 Delirium 10/19/2019 10/22/2019 Headache 10/18/2019 10/22/2019 Impingement syndrome of left shoulder 03/01/2019 09/19/2020 Atrophy of gluteus carlyn muscle 01/17/2019 09/19/2020 Bilateral leg weakness 04/06/2018 0 Strain of rotator cuff 01/06/2017 0 Localized edema 11/10/2016 09/19/2020 Abnormality of gait 09/09/2015 09/19/2020 Tendinopathy of left gluteus medius 08/23/2014 09/19/2020 Greater trochanteric bursitis of left hip 201309/19/2020 Left hip impingement syndrome 08/07/2014 Colitis 04/13/2014 07/30/2017 Stiffness in joint 12/02/2011 09/19/2020 Visit for gynecologic examination 10/05/2011 09/19/2020 Hypothyroid 05/21/2011 09/21/2013 Hair loss 06/18/2010 09/19/2020 Thyroid disorder 06/18/2010 09/19/2020 Unspecified hypertrophic and atrophic condition of skin 06/14/2008 08/12/2015 Scar condition and fibrosis of skin 06/14/2008 08/12/2015 Abnormal mammogram, unspecified 03/19/2008 04/10/2008 GOITER NOS 08/26/2007 01/09/2016 OSTEOARTHRITIS 08/26/2007 01/09/2016 Overview: Hand and TS and LS spine VISUAL REFRACTION ERROR 08/26/2007 01/09/20 16 Sleep disturbance, unspecified 08/26/2007 0 01/09/2016 Unspecified hearing loss 08/26/2007 016 Irritable bowel syndrome 08/26/2007 020 Anemia, unspecified 06/09/2005 08/31/2008 Palpitations 07/06/2003 08/31/2008 Alopecia, unspecified 07/06/2003 08/31/2008 Diarrhea 08/31/2008 Need for prophylactic hormon e replacement therapy (postmenopausal) 09/10/2015 Unspecified vitamin D deficiency 06/29/2008 hx of breast cancer ER positive 09/10/2015 Dyspareunia 09/19/2020 Vaginismus 09/19/2020 documented as of this encounter (statuses as of 01/27/2022) [facility] History of Past illness Narrative* Problem Noted Date Resolved Date Hypertensive emergency 12/22/2019 0 Chest pain 11/22/2019 09/19/2020 Overview: History of HTN and history of SVT with normal cath in the past, Recently admitted to OSH in October with HTN urgency and neurological evaluation of slurred speech, SALTER and MS changes. 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 Antihypertensives were adjusted. She presents to ED complaining of chest pressure. Patient states she has had midsternal chest pressure for the past 2 weeks with exertion. It resolves with rest. She has associated shortness of breath and also improves with rest. She had lightheadedness but no diaphoresis, nausea. In the ED the ECG shows NSR at 63 bpm, no STEMI. New T wave inversion in AVL, compared to prior 10/19/2019. She was found to have elevated troponin and hyperkaliemia in setting of new onset BRIGHT on CKD with creatine 1.68 (baseline creatine- 1.1-1.2) CK/CKMB negative. Patient transferred to [facility] for further evaluation. OSH Echo 10/2019 EF 65%, stage 1 diastolic dysfunction, mild TR Plan cycle enzymes CK 150 Trop T 0.053 BP management treatment of BRIGHT improved off cozaar and maxzide creat 1.35 repeat echo completed and pending Stress test scheduled 11/24/2019 at 7:45 No scar or ischemia Hyperkalemia 11/22/2019 12/15/2019 Overview: see plan CKD BRIGHT (acute kidney injury) 11/22/20192019 Overview: see plan BRIGHT Atypical chest pain 11/22/2019 09/19/2020 Delirium 10/19/2019 10/22/2019 Headache 10/18/2019 10/22/2019 Impingement syndrome of left shoulder 03/01/2019 09/19/2020 Atrophy of gluteus carlyn muscle 01/17/2019 09/19/2020 Bilateral leg weakness 04/06/2018 0 Strain of rotator cuff 01/06/2017 0 Localized edema 11/10/2016 09/19/2020 Abnormality of gait 09/09/2015 09/19/2020 Tendinopathy of left gluteus medius 08/23/2014 09/19/2020 Greater trochanteric bursitis of left hip 201309/19/2020 Left hip impingement syndrome 08/07/2014 Colitis 04/13/2014 07/30/2017 Stiffness in joint 12/02/2011 09/19/2020 Visit for gynecologic examination 10/05/2011 09/19/2020 Hypothyroid 05/21/2011 09/21/2013 Hair loss 06/18/2010 09/19/2020 Thyroid disorder 06/18/2010 09/19/2020 Unspecified hypertrophic and atrophic condition of skin 06/14/2008 08/12/2015 Scar condition and fibrosis of skin 06/14/2008 08/12/2015 Abnormal mammogram, unspecified 03/19/2008 04/10/2008 GOITER NOS 08/26/2007 01/09/2016 OSTEOARTHRITIS 08/26/2007 01/09/2016 Overview: Hand and TS and LS spine VISUAL REFRACTION ERROR 08/26/2007 01/09/20 16 Sleep disturbance, unspecified 08/26/2007 0 01/09/2016 Unspecified hearing loss 08/26/2007 016 Irritable bowel syndrome 08/26/2007 020 Anemia, unspecified 06/09/2005 08/31/2008 Palpitations 07/06/2003 08/31/2008 Alopecia, unspecified 07/06/2003 08/31/2008 Diarrhea 08/31/2008 Need for prophylactic hormon e replacement therapy (postmenopausal) 09/10/2015 Unspecified vitamin D deficiency 06/29/2008 hx of breast cancer ER positive 09/10/2015 Dyspareunia 09/19/2020 Vaginismus 09/19/2020 documented as of this encounter (statuses as of 02/04/2022) [facility] History of Past illness Narrative* Problem Noted Date Resolved Date Hypertensive emergency 12/22/2019 0 Chest pain 11/22/2019 09/19/2020 Overview: History of HTN and history of SVT with normal cath in the past, Recently admitted to OSH in October with HTN urgency and neurological evaluation of slurred speech, SALTER and MS changes. 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 Antihypertensives were adjusted. She presents to ED complaining of chest pressure. Patient states she has had midsternal chest pressure for the past 2 weeks with exertion. It resolves with rest. She has associated shortness of breath and also improves with rest. She had lightheadedness but no diaphoresis, nausea. In the ED the ECG shows NSR at 63 bpm, no STEMI. New T wave inversion in AVL, compared to prior 10/19/2019. She was found to have elevated troponin and hyperkaliemia in setting of new onset BRIGHT on CKD with creatine 1.68 (baseline creatine- 1.1-1.2) CK/CKMB negative. Patient transferred to [facility] for further evaluation. OSH Echo 10/2019 EF 65%, stage 1 diastolic dysfunction, mild TR Plan cycle enzymes CK 150 Trop T 0.053 BP management treatment of BRIGHT improved off cozaar and maxzide creat 1.35 repeat echo completed and pending Stress test scheduled 11/24/2019 at 7:45 No scar or ischemia Hyperkalemia 11/22/2019 12/15/2019 Overview: see plan CKD BRIGHT (acute kidney injury) 11/22/20192019 Overview: see plan BRIGHT Atypical chest pain 11/22/2019 09/19/2020 Delirium 10/19/2019 10/22/2019 Headache 10/18/2019 10/22/2019 Impingement syndrome of left shoulder 03/01/2019 09/19/2020 Atrophy of gluteus carlyn muscle 01/17/2019 09/19/2020 Bilateral leg weakness 04/06/2018 0 Strain of rotator cuff 01/06/2017 0 Localized edema 11/10/2016 09/19/2020 Abnormality of gait 09/09/2015 09/19/2020 Tendinopathy of left gluteus medius 08/23/2014 09/19/2020 Greater trochanteric bursitis of left hip 201309/19/2020 Left hip impingement syndrome 08/07/2014 Colitis 04/13/2014 07/30/2017 Stiffness in joint 12/02/2011 09/19/2020 Visit for gynecologic examination 10/05/2011 09/19/2020 Hypothyroid 05/21/2011 09/21/2013 Hair loss 06/18/2010 09/19/2020 Thyroid disorder 06/18/2010 09/19/2020 Unspecified hypertrophic and atrophic condition of skin 06/14/2008 08/12/2015 Scar condition and fibrosis of skin 06/14/2008 08/12/2015 Abnormal mammogram, unspecified 03/19/2008 04/10/2008 GOITER NOS 08/26/2007 01/09/2016 OSTEOARTHRITIS 08/26/2007 01/09/2016 Overview: Hand and TS and LS spine VISUAL REFRACTION ERROR 08/26/2007 01/09/20 16 Sleep disturbance, unspecified 08/26/2007 0 01/09/2016 Unspecified hearing loss 08/26/2007 016 Irritable bowel syndrome 08/26/2007 020 Anemia, unspecified 06/09/2005 08/31/2008 Palpitations 07/06/2003 08/31/2008 Alopecia, unspecified 07/06/2003 08/31/2008 Diarrhea 08/31/2008 Need for prophylactic hormon e replacement therapy (postmenopausal) 09/10/2015 Unspecified vitamin D deficiency 06/29/2008 hx of breast cancer ER positive 09/10/2015 Dyspareunia 09/19/2020 Vaginismus 09/19/2020 documented as of this encounter (statuses as of 02/10/2022) [facility]03-06-2020 History of Past illness Narrative* Problem Noted Date Resolved Date Hypertensive emergency 12/22/2019 0 Chest pain 11/22/2019 09/19/2020 Overview: History of HTN and history of SVT with normal cath in the past, Recently admitted to OSH in October with HTN urgency and neurological evaluation of slurred speech, SALTER and MS changes. 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 Antihypertensives were adjusted. She presents to ED complaining of chest pressure. Patient states she has had midsternal chest pressure for the past 2 weeks with exertion. It resolves with rest. She has associated shortness of breath and also improves with rest. She had lightheadedness but no diaphoresis, nausea. In the ED the ECG shows NSR at 63 bpm, no STEMI. New T wave inversion in AVL, compared to prior 10/19/2019. She was found to have elevated troponin and hyperkaliemia in setting of new onset BRIGHT on CKD with creatine 1.68 (baseline creatine- 1.1-1.2) CK/CKMB negative. Patient transferred to [facility] for further evaluation. OSH Echo 10/2019 EF 65%, stage 1 diastolic dysfunction, mild TR Plan cycle enzymes CK 150 Trop T 0.053 BP management treatment of BRIGHT improved off cozaar and maxzide creat 1.35 repeat echo completed and pending Stress test scheduled 11/24/2019 at 7:45 No scar or ischemia Hyperkalemia 11/22/2019 12/15/2019 Overview: see plan CKD BRIGHT (acute kidney injury) 11/22/20192019 Overview: see plan BRIGHT Atypical chest pain 11/22/2019 09/19/2020 Delirium 10/19/2019 10/22/2019 Headache 10/18/2019 10/22/2019 Impingement syndrome of left shoulder 03/01/2019 09/19/2020 Atrophy of gluteus carlyn muscle 01/17/2019 09/19/2020 Bilateral leg weakness 04/06/2018 0 Strain of rotator cuff 01/06/2017 0 Localized edema 11/10/2016 09/19/2020 Abnormality of gait 09/09/2015 09/19/2020 Tendinopathy of left gluteus medius 08/23/2014 09/19/2020 Greater trochanteric bursitis of left hip 201309/19/2020 Left hip impingement syndrome 08/07/2014 Colitis 04/13/2014 07/30/2017 Stiffness in joint 12/02/2011 09/19/2020 Visit for gynecologic examination 10/05/2011 09/19/2020 Hypothyroid 05/21/2011 09/21/2013 Hair loss 06/18/2010 09/19/2020 Thyroid disorder 06/18/2010 09/19/2020 Unspecified hypertrophic and atrophic condition of skin 06/14/2008 08/12/2015 Scar condition and fibrosis of skin 06/14/2008 08/12/2015 Abnormal mammogram, unspecified 03/19/2008 04/10/2008 GOITER NOS 08/26/2007 01/09/2016 OSTEOARTHRITIS 08/26/2007 01/09/2016 Overview: Hand and TS and LS spine VISUAL REFRACTION ERROR 08/26/2007 01/09/20 16 Sleep disturbance, unspecified 08/26/2007 0 01/09/2016 Unspecified hearing loss 08/26/2007 016 Irritable bowel syndrome 08/26/2007 020 Anemia, unspecified 06/09/2005 08/31/2008 Palpitations 07/06/2003 08/31/2008 Alopecia, unspecified 07/06/2003 08/31/2008 Diarrhea 08/31/2008 Need for prophylactic hormon e replacement therapy (postmenopausal) 09/10/2015 Unspecified vitamin D deficiency 06/29/2008 hx of breast cancer ER positive 09/10/2015 Dyspareunia 09/19/2020 Vaginismus 09/19/2020 documented as of this encounter (statuses as of 02/17/2022) [facility]03-06-2020 History of Past illness Narrative* Problem Noted Date Resolved Date Hypertensive emergency 12/22/2019 0 Chest pain 11/22/2019 09/19/2020 Overview: History of HTN and history of SVT with normal cath in the past, Recently admitted to OSH in October with HTN urgency and neurological evaluation of slurred speech, SALTER and MS changes. 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 Antihypertensives were adjusted. She presents to ED complaining of chest pressure. Patient states she has had midsternal chest pressure for the past 2 weeks with exertion. It resolves with rest. She has associated shortness of breath and also improves with rest. She had lightheadedness but no diaphoresis, nausea. In the ED the ECG shows NSR at 63 bpm, no STEMI. New T wave inversion in AVL, compared to prior 10/19/2019. She was found to have elevated troponin and hyperkaliemia in setting of new onset BRIGHT on CKD with creatine 1.68 (baseline creatine- 1.1-1.2) CK/CKMB negative. Patient transferred to [facility] for further evaluation. OSH Echo 10/2019 EF 65%, stage 1 diastolic dysfunction, mild TR Plan cycle enzymes CK 150 Trop T 0.053 BP management treatment of BRIGHT improved off cozaar and maxzide creat 1.35 repeat echo completed and pending Stress test scheduled 11/24/2019 at 7:45 No scar or ischemia Hyperkalemia 11/22/2019 12/15/2019 Overview: see plan CKD BRIGHT (acute kidney injury) 11/22/20192019 Overview: see plan BRIGHT Atypical chest pain 11/22/2019 09/19/2020 Delirium 10/19/2019 10/22/2019 Headache 10/18/2019 10/22/2019 Impingement syndrome of left shoulder 03/01/2019 09/19/2020 Atrophy of gluteus carlyn muscle 01/17/2019 09/19/2020 Bilateral leg weakness 04/06/2018 0 Strain of rotator cuff 01/06/2017 0 Localized edema 11/10/2016 09/19/2020 Abnormality of gait 09/09/2015 09/19/2020 Tendinopathy of left gluteus medius 08/23/2014 09/19/2020 Greater trochanteric bursitis of left hip 201309/19/2020 Left hip impingement syndrome 08/07/2014 Colitis 04/13/2014 07/30/2017 Stiffness in joint 12/02/2011 09/19/2020 Visit for gynecologic examination 10/05/2011 09/19/2020 Hypothyroid 05/21/2011 09/21/2013 Hair loss 06/18/2010 09/19/2020 Thyroid disorder 06/18/2010 09/19/2020 Unspecified hypertrophic and atrophic condition of skin 06/14/2008 08/12/2015 Scar condition and fibrosis of skin 06/14/2008 08/12/2015 Abnormal mammogram, unspecified 03/19/2008 04/10/2008 GOITER NOS 08/26/2007 01/09/2016 OSTEOARTHRITIS 08/26/2007 01/09/2016 Overview: Hand and TS and LS spine VISUAL REFRACTION ERROR 08/26/2007 01/09/20 16 Sleep disturbance, unspecified 08/26/2007 0 01/09/2016 Unspecified hearing loss 08/26/2007 016 Irritable bowel syndrome 08/26/2007 020 Anemia, unspecified 06/09/2005 08/31/2008 Palpitations 07/06/2003 08/31/2008 Alopecia, unspecified 07/06/2003 08/31/2008 Diarrhea 08/31/2008 Need for prophylactic hormon e replacement therapy (postmenopausal) 09/10/2015 Unspecified vitamin D deficiency 06/29/2008 hx of breast cancer ER positive 09/10/2015 Dyspareunia 09/19/2020 Vaginismus 09/19/2020 documented as of this encounter (statuses as of 02/19/2022) [facility]03-[facility]-2020 History of Past illness Narrative* Problem Noted Date Resolved Date Hypertensive emergency 12/22/2019 0 Chest pain 11/22/2019 09/19/2020 Overview: History of HTN and history of SVT with normal cath in the past, Recently admitted to OSH in October with HTN urgency and neurological evaluation of slurred speech, SALTER and MS changes. 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 Antihypertensives were adjusted. She presents to ED complaining of chest pressure. Patient states she has had midsternal chest pressure for the past 2 weeks with exertion. It resolves with rest. She has associated shortness of breath and also improves with rest. She had lightheadedness but no diaphoresis, nausea. In the ED the ECG shows NSR at 63 bpm, no STEMI. New T wave inversion in AVL, compared to prior 10/19/2019. She was found to have elevated troponin and hyperkaliemia in setting of new onset BRIGHT on CKD with creatine 1.68 (baseline creatine- 1.1-1.2) CK/CKMB negative. Patient transferred to [facility] for further evaluation. OSH Echo 10/2019 EF 65%, stage 1 diastolic dysfunction, mild TR Plan cycle enzymes CK 150 Trop T 0.053 BP management treatment of BRIGHT improved off cozaar and maxzide creat 1.35 repeat echo completed and pending Stress test scheduled 11/24/2019 at 7:45 No scar or ischemia Hyperkalemia 11/22/2019 12/15/2019 Overview: see plan CKD BRIGHT (acute kidney injury) 11/22/20192019 Overview: see plan BRIGHT Atypical chest pain 11/22/2019 09/19/2020 Delirium 10/19/2019 10/22/2019 Headache 10/18/2019 10/22/2019 Impingement syndrome of left shoulder 03/01/2019 09/19/2020 Atrophy of gluteus carlyn muscle 01/17/2019 09/19/2020 Bilateral leg weakness 04/06/2018 0 Strain of rotator cuff 01/06/2017 0 Localized edema 11/10/2016 09/19/2020 Abnormality of gait 09/09/2015 09/19/2020 Tendinopathy of left gluteus medius 08/23/2014 09/19/2020 Greater trochanteric bursitis of left hip 201309/19/2020 Left hip impingement syndrome 08/07/2014 Colitis 04/13/2014 07/30/2017 Stiffness in joint 12/02/2011 09/19/2020 Visit for gynecologic examination 10/05/2011 09/19/2020 Hypothyroid 05/21/2011 09/21/2013 Hair loss 06/18/2010 09/19/2020 Thyroid disorder 06/18/2010 09/19/2020 Unspecified hypertrophic and atrophic condition of skin 06/14/2008 08/12/2015 Scar condition and fibrosis of skin 06/14/2008 08/12/2015 Abnormal mammogram, unspecified 03/19/2008 04/10/2008 GOITER NOS 08/26/2007 01/09/2016 OSTEOARTHRITIS 08/26/2007 01/09/2016 Overview: Hand and TS and LS spine VISUAL REFRACTION ERROR 08/26/2007 01/09/20 16 Sleep disturbance, unspecified 08/26/2007 0 01/09/2016 Unspecified hearing loss 08/26/2007 016 Irritable bowel syndrome 08/26/2007 020 Anemia, unspecified 06/09/2005 08/31/2008 Palpitations 07/06/2003 08/31/2008 Alopecia, unspecified 07/06/2003 08/31/2008 Diarrhea 08/31/2008 Need for prophylactic hormon e replacement therapy (postmenopausal) 09/10/2015 Unspecified vitamin D deficiency 06/29/2008 hx of breast cancer ER positive 09/10/2015 Dyspareunia 09/19/2020 Vaginismus 09/19/2020 documented as of this encounter (statuses as of 03/24/2022) [facility]03-[facility] History of Past illness Narrative* Problem Noted Date Resolved Date Hypertensive emergency 12/22/2019 0 Chest pain 11/22/2019 09/19/2020 Overview: History of HTN and history of SVT with normal cath in the past, Recently admitted to OSH in October with HTN urgency and neurological evaluation of slurred speech, SALTER and MS changes. 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 Antihypertensives were adjusted. She presents to ED complaining of chest pressure. Patient states she has had midsternal chest pressure for the past 2 weeks with exertion. It resolves with rest. She has associated shortness of breath and also improves with rest. She had lightheadedness but no diaphoresis, nausea. In the ED the ECG shows NSR at 63 bpm, no STEMI. New T wave inversion in AVL, compared to prior 10/19/2019. She was found to have elevated troponin and hyperkaliemia in setting of new onset BRIGHT on CKD with creatine 1.68 (baseline creatine- 1.1-1.2) CK/CKMB negative. Patient transferred to [facility] for further evaluation. OSH Echo 10/2019 EF 65%, stage 1 diastolic dysfunction, mild TR Plan cycle enzymes CK 150 Trop T 0.053 BP management treatment of BRIGHT improved off cozaar and maxzide creat 1.35 repeat echo completed and pending Stress test scheduled 11/24/2019 at 7:45 No scar or ischemia Hyperkalemia 11/22/2019 12/15/2019 Overview: see plan CKD BRIGHT (acute kidney injury) 11/22/20192019 Overview: see plan BRIGHT Atypical chest pain 11/22/2019 09/19/2020 Delirium 10/19/2019 10/22/2019 Headache 10/18/2019 10/22/2019 Impingement syndrome of left shoulder 03/01/2019 09/19/2020 Atrophy of gluteus carlyn muscle 01/17/2019 09/19/2020 Bilateral leg weakness 04/06/2018 0 Strain of rotator cuff 01/06/2017 0 Localized edema 11/10/2016 09/19/2020 Abnormality of gait 09/09/2015 09/19/2020 Tendinopathy of left gluteus medius 08/23/2014 09/19/2020 Greater trochanteric bursitis of left hip 201309/19/2020 Left hip impingement syndrome 08/07/2014 Colitis 04/13/2014 07/30/2017 Stiffness in joint 12/02/2011 09/19/2020 Visit for gynecologic examination 10/05/2011 09/19/2020 Hypothyroid 05/21/2011 09/21/2013 Hair loss 06/18/2010 09/19/2020 Thyroid disorder 06/18/2010 09/19/2020 Unspecified hypertrophic and atrophic condition of skin 06/14/2008 08/12/2015 Scar condition and fibrosis of skin 06/14/2008 08/12/2015 Abnormal mammogram, unspecified 03/19/2008 04/10/2008 GOITER NOS 08/26/2007 01/09/2016 OSTEOARTHRITIS 08/26/2007 01/09/2016 Overview: Hand and TS and LS spine VISUAL REFRACTION ERROR 08/26/2007 01/09/20 16 Sleep disturbance, unspecified 08/26/2007 0 01/09/2016 Unspecified hearing loss 08/26/2007 016 Irritable bowel syndrome 08/26/2007 020 Anemia, unspecified 06/09/2005 08/31/2008 Palpitations 07/06/2003 08/31/2008 Alopecia, unspecified 07/06/2003 08/31/2008 Diarrhea 08/31/2008 Need for prophylactic hormon e replacement therapy (postmenopausal) 09/10/2015 Unspecified vitamin D deficiency 06/29/2008 hx of breast cancer ER positive 09/10/2015 Dyspareunia 09/19/2020 Vaginismus 09/19/2020 documented as of this encounter (statuses as of 04/14/2022) [facility]03-[facility] History of Past illness Narrative* Problem Noted Date Resolved Date Hypertensive emergency 12/22/2019 0 Chest pain 11/22/2019 09/19/2020 Overview: History of HTN and history of SVT with normal cath in the past, Recently admitted to OSH in October with HTN urgency and neurological evaluation of slurred speech, SALTER and MS changes. 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 Antihypertensives were adjusted. She presents to ED complaining of chest pressure. Patient states she has had midsternal chest pressure for the past 2 weeks with exertion. It resolves with rest. She has associated shortness of breath and also improves with rest. She had lightheadedness but no diaphoresis, nausea. In the ED the ECG shows NSR at 63 bpm, no STEMI. New T wave inversion in AVL, compared to prior 10/19/2019. She was found to have elevated troponin and hyperkaliemia in setting of new onset BRIGHT on CKD with creatine 1.68 (baseline creatine- 1.1-1.2) CK/CKMB negative. Patient transferred to [facility] for further evaluation. OSH Echo 10/2019 EF 65%, stage 1 diastolic dysfunction, mild TR Plan cycle enzymes CK 150 Trop T 0.053 BP management treatment of BRIGHT improved off cozaar and maxzide creat 1.35 repeat echo completed and pending Stress test scheduled 11/24/2019 at 7:45 No scar or ischemia Hyperkalemia 11/22/2019 12/15/2019 Overview: see plan CKD BRIGHT (acute kidney injury) 11/22/20192019 Overview: see plan BRIGHT Atypical chest pain 11/22/2019 09/19/2020 Delirium 10/19/2019 10/22/2019 Headache 10/18/2019 10/22/2019 Impingement syndrome of left shoulder 03/01/2019 09/19/2020 Atrophy of gluteus carlyn muscle 01/17/2019 09/19/2020 Bilateral leg weakness 04/06/2018 0 Strain of rotator cuff 01/06/2017 0 Localized edema 11/10/2016 09/19/2020 Abnormality of gait 09/09/2015 09/19/2020 Tendinopathy of left gluteus medius 08/23/2014 09/19/2020 Greater trochanteric bursitis of left hip 201309/19/2020 Left hip impingement syndrome 08/07/2014 Colitis 04/13/2014 07/30/2017 Stiffness in joint 12/02/2011 09/19/2020 Visit for gynecologic examination 10/05/2011 09/19/2020 Hypothyroid 05/21/2011 09/21/2013 Hair loss 06/18/2010 09/19/2020 Thyroid disorder 06/18/2010 09/19/2020 Unspecified hypertrophic and atrophic condition of skin 06/14/2008 08/12/2015 Scar condition and fibrosis of skin 06/14/2008 08/12/2015 Abnormal mammogram, unspecified 03/19/2008 04/10/2008 GOITER NOS 08/26/2007 01/09/2016 OSTEOARTHRITIS 08/26/2007 01/09/2016 Overview: Hand and TS and LS spine VISUAL REFRACTION ERROR 08/26/2007 01/09/20 16 Sleep disturbance, unspecified 08/26/2007 0 01/09/2016 Unspecified hearing loss 08/26/2007 016 Irritable bowel syndrome 08/26/2007 020 Anemia, unspecified 06/09/2005 08/31/2008 Palpitations 07/06/2003 08/31/2008 Alopecia, unspecified 07/06/2003 08/31/2008 Diarrhea 08/31/2008 Need for prophylactic hormon e replacement therapy (postmenopausal) 09/10/2015 Unspecified vitamin D deficiency 06/29/2008 hx of breast cancer ER positive 09/10/2015 Dyspareunia 09/19/2020 Vaginismus 09/19/2020 documented as of this encounter (statuses as of 04/17/2022) [facility] History of Past illness Narrative* Problem Noted Date Resolved Date Hypertensive emergency 12/22/2019 0 Chest pain 11/22/2019 09/19/2020 Overview: History of HTN and history of SVT with normal cath in the past, Recently admitted to OSH in October with HTN urgency and neurological evaluation of slurred speech, SALTER and MS changes. 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 Antihypertensives were adjusted. She presents to ED complaining of chest pressure. Patient states she has had midsternal chest pressure for the past 2 weeks with exertion. It resolves with rest. She has associated shortness of breath and also improves with rest. She had lightheadedness but no diaphoresis, nausea. In the ED the ECG shows NSR at 63 bpm, no STEMI. New T wave inversion in AVL, compared to prior 10/19/2019. She was found to have elevated troponin and hyperkaliemia in setting of new onset BRIGHT on CKD with creatine 1.68 (baseline creatine- 1.1-1.2) CK/CKMB negative. Patient transferred to [facility] for further evaluation. OSH Echo 10/2019 EF 65%, stage 1 diastolic dysfunction, mild TR Plan cycle enzymes CK 150 Trop T 0.053 BP management treatment of BRIGHT improved off cozaar and maxzide creat 1.35 repeat echo completed and pending Stress test scheduled 11/24/2019 at 7:45 No scar or ischemia Hyperkalemia 11/22/2019 12/15/2019 Overview: see plan CKD BRIGHT (acute kidney injury) 11/22/20192019 Overview: see plan BRIGHT Atypical chest pain 11/22/2019 09/19/2020 Delirium 10/19/2019 10/22/2019 Headache 10/18/2019 10/22/2019 Impingement syndrome of left shoulder 03/01/2019 09/19/2020 Atrophy of gluteus carlyn muscle 01/17/2019 09/19/2020 Bilateral leg weakness 04/06/2018 0 Strain of rotator cuff 01/06/2017 0 Localized edema 11/10/2016 09/19/2020 Abnormality of gait 09/09/2015 09/19/2020 Tendinopathy of left gluteus medius 08/23/2014 09/19/2020 Greater trochanteric bursitis of left hip 201309/19/2020 Left hip impingement syndrome 08/07/2014 Colitis 04/13/2014 07/30/2017 Stiffness in joint 12/02/2011 09/19/2020 Visit for gynecologic examination 10/05/2011 09/19/2020 Hypothyroid 05/21/2011 09/21/2013 Hair loss 06/18/2010 09/19/2020 Thyroid disorder 06/18/2010 09/19/2020 Unspecified hypertrophic and atrophic condition of skin 06/14/2008 08/12/2015 Scar condition and fibrosis of skin 06/14/2008 08/12/2015 Abnormal mammogram, unspecified 03/19/2008 04/10/2008 GOITER NOS 08/26/2007 01/09/2016 OSTEOARTHRITIS 08/26/2007 01/09/2016 Overview: Hand and TS and LS spine VISUAL REFRACTION ERROR 08/26/2007 01/09/20 16 Sleep disturbance, unspecified 08/26/2007 0 01/09/2016 Unspecified hearing loss 08/26/2007 016 Irritable bowel syndrome 08/26/2007 020 Anemia, unspecified 06/09/2005 08/31/2008 Palpitations 07/06/2003 08/31/2008 Alopecia, unspecified 07/06/2003 08/31/2008 Diarrhea 08/31/2008 Need for prophylactic hormon e replacement therapy (postmenopausal) 09/10/2015 Unspecified vitamin D deficiency 06/29/2008 hx of breast cancer ER positive 09/10/2015 Dyspareunia 09/19/2020 Vaginismus 09/19/2020 documented as of this encounter (statuses as of 05/14/2022) [facility] History of Past illness Narrative* Problem Noted Date Resolved Date Hypertensive emergency 12/22/2019 0 Chest pain 11/22/2019 09/19/2020 Overview: History of HTN and history of SVT with normal cath in the past, Recently admitted to OSH in October with HTN urgency and neurological evaluation of slurred speech, SALTER and MS changes. 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 Antihypertensives were adjusted. She presents to ED complaining of chest pressure. Patient states she has had midsternal chest pressure for the past 2 weeks with exertion. It resolves with rest. She has associated shortness of breath and also improves with rest. She had lightheadedness but no diaphoresis, nausea. In the ED the ECG shows NSR at 63 bpm, no STEMI. New T wave inversion in AVL, compared to prior 10/19/2019. She was found to have elevated troponin and hyperkaliemia in setting of new onset BRIGHT on CKD with creatine 1.68 (baseline creatine- 1.1-1.2) CK/CKMB negative. Patient transferred to [facility] for further evaluation. OSH Echo 10/2019 EF 65%, stage 1 diastolic dysfunction, mild TR Plan cycle enzymes CK 150 Trop T 0.053 BP management treatment of BRIGHT improved off cozaar and maxzide creat 1.35 repeat echo completed and pending Stress test scheduled 11/24/2019 at 7:45 No scar or ischemia Hyperkalemia 11/22/2019 12/15/2019 Overview: see plan CKD BRIGHT (acute kidney injury) 11/22/20192019 Overview: see plan BRIGHT Atypical chest pain 11/22/2019 09/19/2020 Delirium 10/19/2019 10/22/2019 Headache 10/18/2019 10/22/2019 Impingement syndrome of left shoulder 03/01/2019 09/19/2020 Atrophy of gluteus carlyn muscle 01/17/2019 09/19/2020 Bilateral leg weakness 04/06/2018 0 Strain of rotator cuff 01/06/2017 0 Localized edema 11/10/2016 09/19/2020 Abnormality of gait 09/09/2015 09/19/2020 Tendinopathy of left gluteus medius 08/23/2014 09/19/2020 Greater trochanteric bursitis of left hip 201309/19/2020 Left hip impingement syndrome 08/07/2014 Colitis 04/13/2014 07/30/2017 Stiffness in joint 12/02/2011 09/19/2020 Visit for gynecologic examination 10/05/2011 09/19/2020 Hypothyroid 05/21/2011 09/21/2013 Hair loss 06/18/2010 09/19/2020 Thyroid disorder 06/18/2010 09/19/2020 Unspecified hypertrophic and atrophic condition of skin 06/14/2008 08/12/2015 Scar condition and fibrosis of skin 06/14/2008 08/12/2015 Abnormal mammogram, unspecified 03/19/2008 04/10/2008 GOITER NOS 08/26/2007 01/09/2016 OSTEOARTHRITIS 08/26/2007 01/09/2016 Overview: Hand and TS and LS spine VISUAL REFRACTION ERROR 08/26/2007 01/09/20 16 Sleep disturbance, unspecified 08/26/2007 0 01/09/2016 Unspecified hearing loss 08/26/2007 016 Irritable bowel syndrome 08/26/2007 020 Anemia, unspecified 06/09/2005 08/31/2008 Palpitations 07/06/2003 08/31/2008 Alopecia, unspecified 07/06/2003 08/31/2008 Diarrhea 08/31/2008 Need for prophylactic hormon e replacement therapy (postmenopausal) 09/10/2015 Unspecified vitamin D deficiency 06/29/2008 hx of breast cancer ER positive 09/10/2015 Dyspareunia 09/19/2020 Vaginismus 09/19/2020 documented as of this encounter (statuses as of 05/18/2022) [facility]03-06-2020 History of Past illness Narrative* Problem Noted Date Resolved Date Hypertensive emergency 12/22/2019 0 Chest pain 11/22/2019 09/19/2020 Overview: History of HTN and history of SVT with normal cath in the past, Recently admitted to OSH in October with HTN urgency and neurological evaluation of slurred speech, SALTER and MS changes. 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 Antihypertensives were adjusted. She presents to ED complaining of chest pressure. Patient states she has had midsternal chest pressure for the past 2 weeks with exertion. It resolves with rest. She has associated shortness of breath and also improves with rest. She had lightheadedness but no diaphoresis, nausea. In the ED the ECG shows NSR at 63 bpm, no STEMI. New T wave inversion in AVL, compared to prior 10/19/2019. She was found to have elevated troponin and hyperkaliemia in setting of new onset BRIGHT on CKD with creatine 1.68 (baseline creatine- 1.1-1.2) CK/CKMB negative. Patient transferred to [facility] for further evaluation. OSH Echo 10/2019 EF 65%, stage 1 diastolic dysfunction, mild TR Plan cycle enzymes CK 150 Trop T 0.053 BP management treatment of BRIGHT improved off cozaar and maxzide creat 1.35 repeat echo completed and pending Stress test scheduled 11/24/2019 at 7:45 No scar or ischemia Hyperkalemia 11/22/2019 12/15/2019 Overview: see plan CKD BRIGHT (acute kidney injury) 11/22/20192019 Overview: see plan BRIGHT Atypical chest pain 11/22/2019 09/19/2020 Delirium 10/19/2019 10/22/2019 Headache 10/18/2019 10/22/2019 Impingement syndrome of left shoulder 03/01/2019 09/19/2020 Atrophy of gluteus carlyn muscle 01/17/2019 09/19/2020 Bilateral leg weakness 04/06/2018 0 Strain of rotator cuff 01/06/2017 0 Localized edema 11/10/2016 09/19/2020 Abnormality of gait 09/09/2015 09/19/2020 Tendinopathy of left gluteus medius 08/23/2014 09/19/2020 Greater trochanteric bursitis of left hip 201309/19/2020 Left hip impingement syndrome 08/07/2014 Colitis 04/13/2014 07/30/2017 Stiffness in joint 12/02/2011 09/19/2020 Visit for gynecologic examination 10/05/2011 09/19/2020 Hypothyroid 05/21/2011 09/21/2013 Hair loss 06/18/2010 09/19/2020 Thyroid disorder 06/18/2010 09/19/2020 Unspecified hypertrophic and atrophic condition of skin 06/14/2008 08/12/2015 Scar condition and fibrosis of skin 06/14/2008 08/12/2015 Abnormal mammogram, unspecified 03/19/2008 04/10/2008 GOITER NOS 08/26/2007 01/09/2016 OSTEOARTHRITIS 08/26/2007 01/09/2016 Overview: Hand and TS and LS spine VISUAL REFRACTION ERROR 08/26/2007 01/09/20 16 Sleep disturbance, unspecified 08/26/2007 0 01/09/2016 Unspecified hearing loss 08/26/2007 016 Irritable bowel syndrome 08/26/2007 020 Anemia, unspecified 06/09/2005 08/31/2008 Palpitations 07/06/2003 08/31/2008 Alopecia, unspecified 07/06/2003 08/31/2008 Diarrhea 08/31/2008 Need for prophylactic hormon e replacement therapy (postmenopausal) 09/10/2015 Unspecified vitamin D deficiency 06/29/2008 hx of breast cancer ER positive 09/10/2015 Dyspareunia 09/19/2020 Vaginismus 09/19/2020 documented as of this encounter (statuses as of 2022) [facility]03-[facility]2020 History of Past illness Narrative* Problem Noted Date Resolved Date Hypertensive emergency 12/22/2019 0 Chest pain 11/22/2019 09/19/2020 Overview: History of HTN and history of SVT with normal cath in the past, Recently admitted to OSH in October with HTN urgency and neurological evaluation of slurred speech, SALTER and MS changes. 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 Antihypertensives were adjusted. She presents to ED complaining of chest pressure. Patient states she has had midsternal chest pressure for the past 2 weeks with exertion. It resolves with rest. She has associated shortness of breath and also improves with rest. She had lightheadedness but no diaphoresis, nausea. In the ED the ECG shows NSR at 63 bpm, no STEMI. New T wave inversion in AVL, compared to prior 10/19/2019. She was found to have elevated troponin and hyperkaliemia in setting of new onset BRIGHT on CKD with creatine 1.68 (baseline creatine- 1.1-1.2) CK/CKMB negative. Patient transferred to [facility] for further evaluation. OSH Echo 10/2019 EF 65%, stage 1 diastolic dysfunction, mild TR Plan cycle enzymes CK 150 Trop T 0.053 BP management treatment of BRIGHT improved off cozaar and maxzide creat 1.35 repeat echo completed and pending Stress test scheduled 11/24/2019 at 7:45 No scar or ischemia Hyperkalemia 11/22/2019 12/15/2019 Overview: see plan CKD BRIGHT (acute kidney injury) 11/22/20192019 Overview: see plan BRIGHT Atypical chest pain 11/22/2019 09/19/2020 Delirium 10/19/2019 10/22/2019 Headache 10/18/2019 10/22/2019 Impingement syndrome of left shoulder 03/01/2019 09/19/2020 Atrophy of gluteus carlyn muscle 01/17/2019 09/19/2020 Bilateral leg weakness 04/06/2018 0 Strain of rotator cuff 01/06/2017 0 Localized edema 11/10/2016 09/19/2020 Abnormality of gait 09/09/2015 09/19/2020 Tendinopathy of left gluteus medius 08/23/2014 09/19/2020 Greater trochanteric bursitis of left hip 201309/19/2020 Left hip impingement syndrome 08/07/2014 Colitis 04/13/2014 07/30/2017 Stiffness in joint 12/02/2011 09/19/2020 Visit for gynecologic examination 10/05/2011 09/19/2020 Hypothyroid 05/21/2011 09/21/2013 Hair loss 06/18/2010 09/19/2020 Thyroid disorder 06/18/2010 09/19/2020 Unspecified hypertrophic and atrophic condition of skin 06/14/2008 08/12/2015 Scar condition and fibrosis of skin 06/14/2008 08/12/2015 Abnormal mammogram, unspecified 03/19/2008 04/10/2008 GOITER NOS 08/26/2007 01/09/2016 OSTEOARTHRITIS 08/26/2007 01/09/2016 Overview: Hand and TS and LS spine VISUAL REFRACTION ERROR 08/26/2007 01/09/20 16 Sleep disturbance, unspecified 08/26/2007 0 01/09/2016 Unspecified hearing loss 08/26/2007 016 Irritable bowel syndrome 08/26/2007 020 Anemia, unspecified 06/09/2005 08/31/2008 Palpitations 07/06/2003 08/31/2008 Alopecia, unspecified 07/06/2003 08/31/2008 Diarrhea 08/31/2008 Need for prophylactic hormon e replacement therapy (postmenopausal) 09/10/2015 Unspecified vitamin D deficiency 06/29/2008 hx of breast cancer ER positive 09/10/2015 Dyspareunia 09/19/2020 Vaginismus 09/19/2020 documented as of this encounter (statuses as of 06/01/2022) [facility]03-[facility] History of Past illness Narrative* Problem Noted Date Resolved Date Hypertensive emergency 12/22/2019 0 Chest pain 11/22/2019 09/19/2020 Overview: History of HTN and history of SVT with normal cath in the past, Recently admitted to OSH in October with HTN urgency and neurological evaluation of slurred speech, SALTER and MS changes. 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 Antihypertensives were adjusted. She presents to ED complaining of chest pressure. Patient states she has had midsternal chest pressure for the past 2 weeks with exertion. It resolves with rest. She has associated shortness of breath and also improves with rest. She had lightheadedness but no diaphoresis, nausea. In the ED the ECG shows NSR at 63 bpm, no STEMI. New T wave inversion in AVL, compared to prior 10/19/2019. She was found to have elevated troponin and hyperkaliemia in setting of new onset BRIGHT on CKD with creatine 1.68 (baseline creatine- 1.1-1.2) CK/CKMB negative. Patient transferred to [facility] for further evaluation. OSH Echo 10/2019 EF 65%, stage 1 diastolic dysfunction, mild TR Plan cycle enzymes CK 150 Trop T 0.053 BP management treatment of BRIGHT improved off cozaar and maxzide creat 1.35 repeat echo completed and pending Stress test scheduled 11/24/2019 at 7:45 No scar or ischemia Hyperkalemia 11/22/2019 12/15/2019 Overview: see plan CKD BRIGHT (acute kidney injury) 11/22/20192019 Overview: see plan BRIGHT Atypical chest pain 11/22/2019 09/19/2020 Delirium 10/19/2019 10/22/2019 Headache 10/18/2019 10/22/2019 Impingement syndrome of left shoulder 03/01/2019 09/19/2020 Atrophy of gluteus carlyn muscle 01/17/2019 09/19/2020 Bilateral leg weakness 04/06/2018 0 Strain of rotator cuff 01/06/2017 0 Localized edema 11/10/2016 09/19/2020 Abnormality of gait 09/09/2015 09/19/2020 Tendinopathy of left gluteus medius 08/23/2014 09/19/2020 Greater trochanteric bursitis of left hip 201309/19/2020 Left hip impingement syndrome 08/07/2014 Colitis 04/13/2014 07/30/2017 Stiffness in joint 12/02/2011 09/19/2020 Visit for gynecologic examination 10/05/2011 09/19/2020 Hypothyroid 05/21/2011 09/21/2013 Hair loss 06/18/2010 09/19/2020 Thyroid disorder 06/18/2010 09/19/2020 Unspecified hypertrophic and atrophic condition of skin 06/14/2008 08/12/2015 Scar condition and fibrosis of skin 06/14/2008 08/12/2015 Abnormal mammogram, unspecified 03/19/2008 04/10/2008 GOITER NOS 08/26/2007 01/09/2016 OSTEOARTHRITIS 08/26/2007 01/09/2016 Overview: Hand and TS and LS spine VISUAL REFRACTION ERROR 08/26/2007 01/09/20 16 Sleep disturbance, unspecified 08/26/2007 0 01/09/2016 Unspecified hearing loss 08/26/2007 016 Irritable bowel syndrome 08/26/2007 020 Anemia, unspecified 06/09/2005 08/31/2008 Palpitations 07/06/2003 08/31/2008 Alopecia, unspecified 07/06/2003 08/31/2008 Diarrhea 08/31/2008 Need for prophylactic hormon e replacement therapy (postmenopausal) 09/10/2015 Unspecified vitamin D deficiency 06/29/2008 hx of breast cancer ER positive 09/10/2015 Dyspareunia 09/19/2020 Vaginismus 09/19/2020 documented as of this encounter (statuses as of 07/16/2022) [place] [address]-06-2020 History of Past illness Narrative* Problem Noted Date Resolved Date Hypertensive emergency 12/22/2019 0 Chest pain 11/22/2019 09/19/2020 Overview: History of HTN and history of SVT with normal cath in the past, Recently admitted to OSH in October with HTN urgency and neurological evaluation of slurred speech, SALTER and MS changes. 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 Antihypertensives were adjusted. She presents to ED complaining of chest pressure. Patient states she has had midsternal chest pressure for the past 2 weeks with exertion. It resolves with rest. She has associated shortness of breath and also improves with rest. She had lightheadedness but no diaphoresis, nausea. In the ED the ECG shows NSR at 63 bpm, no STEMI. New T wave inversion in AVL, compared to prior 10/19/2019. She was found to have elevated troponin and hyperkaliemia in setting of new onset BRIGHT on CKD with creatine 1.68 (baseline creatine- 1.1-1.2) CK/CKMB negative. Patient transferred to [facility] for further evaluation. OSH Echo 10/2019 EF 65%, stage 1 diastolic dysfunction, mild TR Plan cycle enzymes CK 150 Trop T 0.053 BP management treatment of BRIGHT improved off cozaar and maxzide creat 1.35 repeat echo completed and pending Stress test scheduled 11/24/2019 at 7:45 No scar or ischemia Hyperkalemia 11/22/2019 12/15/2019 Overview: see plan CKD BRIGHT (acute kidney injury) 11/22/20192019 Overview: see plan BRIGHT Atypical chest pain 11/22/2019 09/19/2020 Delirium 10/19/2019 10/22/2019 Headache 10/18/2019 10/22/2019 Impingement syndrome of left shoulder 03/01/2019 09/19/2020 Atrophy of gluteus carlyn muscle 01/17/2019 09/19/2020 Bilateral leg weakness 04/06/2018 0 Strain of rotator cuff 01/06/2017 0 Localized edema 11/10/2016 09/19/2020 Abnormality of gait 09/09/2015 09/19/2020 Tendinopathy of left gluteus medius 08/23/2014 09/19/2020 Greater trochanteric bursitis of left hip 201309/19/2020 Left hip impingement syndrome 08/07/2014 Colitis 04/13/2014 07/30/2017 Stiffness in joint 12/02/2011 09/19/2020 Visit for gynecologic examination 10/05/2011 09/19/2020 Hypothyroid 05/21/2011 09/21/2013 Hair loss 06/18/2010 09/19/2020 Thyroid disorder 06/18/2010 09/19/2020 Unspecified hypertrophic and atrophic condition of skin 06/14/2008 08/12/2015 Scar condition and fibrosis of skin 06/14/2008 08/12/2015 Abnormal mammogram, unspecified 03/19/2008 04/10/2008 GOITER NOS 08/26/2007 01/09/2016 OSTEOARTHRITIS 08/26/2007 01/09/2016 Overview: Hand and TS and LS spine VISUAL REFRACTION ERROR 08/26/2007 01/09/20 16 Sleep disturbance, unspecified 08/26/2007 0 01/09/2016 Unspecified hearing loss 08/26/2007 016 Irritable bowel syndrome 08/26/2007 020 Anemia, unspecified 06/09/2005 08/31/2008 Palpitations 07/06/2003 08/31/2008 Alopecia, unspecified 07/06/2003 08/31/2008 Diarrhea 08/31/2008 Need for prophylactic hormon e replacement therapy (postmenopausal) 09/10/2015 Unspecified vitamin D deficiency 06/29/2008 hx of breast cancer ER positive 09/10/2015 Dyspareunia 09/19/2020 Vaginismus 09/19/2020 documented as of this encounter (statuses as of 07/22/2022) [facility] History of Past illness Narrative* Problem Noted Date Resolved Date Hypertensive emergency 12/22/2019 0 Chest pain 11/22/2019 09/19/2020 Overview: History of HTN and history of SVT with normal cath in the past, Recently admitted to OSH in October with HTN urgency and neurological evaluation of slurred speech, SALTER and MS changes. 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 Antihypertensives were adjusted. She presents to ED complaining of chest pressure. Patient states she has had midsternal chest pressure for the past 2 weeks with exertion. It resolves with rest. She has associated shortness of breath and also improves with rest. She had lightheadedness but no diaphoresis, nausea. In the ED the ECG shows NSR at 63 bpm, no STEMI. New T wave inversion in AVL, compared to prior 10/19/2019. She was found to have elevated troponin and hyperkaliemia in setting of new onset BRIGHT on CKD with creatine 1.68 (baseline creatine- 1.1-1.2) CK/CKMB negative. Patient transferred to [facility] for further evaluation. OSH Echo 10/2019 EF 65%, stage 1 diastolic dysfunction, mild TR Plan cycle enzymes CK 150 Trop T 0.053 BP management treatment of BRIGHT improved off cozaar and maxzide creat 1.35 repeat echo completed and pending Stress test scheduled 11/24/2019 at 7:45 No scar or ischemia Hyperkalemia 11/22/2019 12/15/2019 Overview: see plan CKD BRIGHT (acute kidney injury) 11/22/20192019 Overview: see plan BRIGHT Atypical chest pain 11/22/2019 09/19/2020 Delirium 10/19/2019 10/22/2019 Headache 10/18/2019 10/22/2019 Impingement syndrome of left shoulder 03/01/2019 09/19/2020 Atrophy of gluteus carlyn muscle 01/17/2019 09/19/2020 Bilateral leg weakness 04/06/2018 0 Strain of rotator cuff 01/06/2017 0 Localized edema 11/10/2016 09/19/2020 Abnormality of gait 09/09/2015 09/19/2020 Tendinopathy of left gluteus medius 08/23/2014 09/19/2020 Greater trochanteric bursitis of left hip 201309/19/2020 Left hip impingement syndrome 08/07/2014 Colitis 04/13/2014 07/30/2017 Stiffness in joint 12/02/2011 09/19/2020 Visit for gynecologic examination 10/05/2011 09/19/2020 Hypothyroid 05/21/2011 09/21/2013 Hair loss 06/18/2010 09/19/2020 Thyroid disorder 06/18/2010 09/19/2020 Unspecified hypertrophic and atrophic condition of skin 06/14/2008 08/12/2015 Scar condition and fibrosis of skin 06/14/2008 08/12/2015 Abnormal mammogram, unspecified 03/19/2008 04/10/2008 GOITER NOS 08/26/2007 01/09/2016 OSTEOARTHRITIS 08/26/2007 01/09/2016 Overview: Hand and TS and LS spine VISUAL REFRACTION ERROR 08/26/2007 01/09/20 16 Sleep disturbance, unspecified 08/26/2007 0 01/09/2016 Unspecified hearing loss 08/26/2007 016 Irritable bowel syndrome 08/26/2007 020 Anemia, unspecified 06/09/2005 08/31/2008 Palpitations 07/06/2003 08/31/2008 Alopecia, unspecified 07/06/2003 08/31/2008 Diarrhea 08/31/2008 Need for prophylactic hormon e replacement therapy (postmenopausal) 09/10/2015 Unspecified vitamin D deficiency 06/29/2008 hx of breast cancer ER positive 09/10/2015 Dyspareunia 09/19/2020 Vaginismus 09/19/2020 documented as of this encounter (statuses as of 08/06/2022) [facility] History of Past illness Narrative* Problem Noted Date Resolved Date Hypertensive emergency 12/22/2019 0 Chest pain 11/22/2019 09/19/2020 Overview: History of HTN and history of SVT with normal cath in the past, Recently admitted to OSH in October with HTN urgency and neurological evaluation of slurred speech, SALTER and MS changes. 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 Antihypertensives were adjusted. She presents to ED complaining of chest pressure. Patient states she has had midsternal chest pressure for the past 2 weeks with exertion. It resolves with rest. She has associated shortness of breath and also improves with rest. She had lightheadedness but no diaphoresis, nausea. In the ED the ECG shows NSR at 63 bpm, no STEMI. New T wave inversion in AVL, compared to prior 10/19/2019. She was found to have elevated troponin and hyperkaliemia in setting of new onset BRIGHT on CKD with creatine 1.68 (baseline creatine- 1.1-1.2) CK/CKMB negative. Patient transferred to [facility] for further evaluation. OSH Echo 10/2019 EF 65%, stage 1 diastolic dysfunction, mild TR Plan cycle enzymes CK 150 Trop T 0.053 BP management treatment of BRIGHT improved off cozaar and maxzide creat 1.35 repeat echo completed and pending Stress test scheduled 11/24/2019 at 7:45 No scar or ischemia Hyperkalemia 11/22/2019 12/15/2019 Overview: see plan CKD BRIGHT (acute kidney injury) 11/22/20192019 Overview: see plan BRIGHT Atypical chest pain 11/22/2019 09/19/2020 Delirium 10/19/2019 10/22/2019 Headache 10/18/2019 10/22/2019 Impingement syndrome of left shoulder 03/01/2019 09/19/2020 Atrophy of gluteus carlyn muscle 01/17/2019 09/19/2020 Bilateral leg weakness 04/06/2018 0 Strain of rotator cuff 01/06/2017 0 Localized edema 11/10/2016 09/19/2020 Abnormality of gait 09/09/2015 09/19/2020 Tendinopathy of left gluteus medius 08/23/2014 09/19/2020 Greater trochanteric bursitis of left hip 201309/19/2020 Left hip impingement syndrome 08/07/2014 Colitis 04/13/2014 07/30/2017 Stiffness in joint 12/02/2011 09/19/2020 Visit for gynecologic examination 10/05/2011 09/19/2020 Hypothyroid 05/21/2011 09/21/2013 Hair loss 06/18/2010 09/19/2020 Thyroid disorder 06/18/2010 09/19/2020 Unspecified hypertrophic and atrophic condition of skin 06/14/2008 08/12/2015 Scar condition and fibrosis of skin 06/14/2008 08/12/2015 Abnormal mammogram, unspecified 03/19/2008 04/10/2008 GOITER NOS 08/26/2007 01/09/2016 OSTEOARTHRITIS 08/26/2007 01/09/2016 Overview: Hand and TS and LS spine VISUAL REFRACTION ERROR 08/26/2007 01/09/20 16 Sleep disturbance, unspecified 08/26/2007 0 01/09/2016 Unspecified hearing loss 08/26/2007 016 Irritable bowel syndrome 08/26/2007 020 Anemia, unspecified 06/09/2005 08/31/2008 Palpitations 07/06/2003 08/31/2008 Alopecia, unspecified 07/06/2003 08/31/2008 Diarrhea 08/31/2008 Need for prophylactic hormon e replacement therapy (postmenopausal) 09/10/2015 Unspecified vitamin D deficiency 06/29/2008 hx of breast cancer ER positive 09/10/2015 Dyspareunia 09/19/2020 Vaginismus 09/19/2020 documented as of this encounter (statuses as of 08/08/2022) [facility] History of Past illness Narrative* Problem Noted Date Resolved Date Hypertensive emergency 12/22/2019 0 Chest pain 11/22/2019 09/19/2020 Overview: History of HTN and history of SVT with normal cath in the past, Recently admitted to OSH in October with HTN urgency and neurological evaluation of slurred speech, SALTER and MS changes. 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 Antihypertensives were adjusted. She presents to ED complaining of chest pressure. Patient states she has had midsternal chest pressure for the past 2 weeks with exertion. It resolves with rest. She has associated shortness of breath and also improves with rest. She had lightheadedness but no diaphoresis, nausea. In the ED the ECG shows NSR at 63 bpm, no STEMI. New T wave inversion in AVL, compared to prior 10/19/2019. She was found to have elevated troponin and hyperkaliemia in setting of new onset BRIGHT on CKD with creatine 1.68 (baseline creatine- 1.1-1.2) CK/CKMB negative. Patient transferred to [facility] for further evaluation. OSH Echo 10/2019 EF 65%, stage 1 diastolic dysfunction, mild TR Plan cycle enzymes CK 150 Trop T 0.053 BP management treatment of BRIGHT improved off cozaar and maxzide creat 1.35 repeat echo completed and pending Stress test scheduled 11/24/2019 at 7:45 No scar or ischemia Hyperkalemia 11/22/2019 12/15/2019 Overview: see plan CKD BRIGHT (acute kidney injury) 11/22/20192019 Overview: see plan BRIGHT Atypical chest pain 11/22/2019 09/19/2020 Delirium 10/19/2019 10/22/2019 Headache 10/18/2019 10/22/2019 Impingement syndrome of left shoulder 03/01/2019 09/19/2020 Atrophy of gluteus carlyn muscle 01/17/2019 09/19/2020 Bilateral leg weakness 04/06/2018 0 Strain of rotator cuff 01/06/2017 0 Localized edema 11/10/2016 09/19/2020 Abnormality of gait 09/09/2015 09/19/2020 Tendinopathy of left gluteus medius 08/23/2014 09/19/2020 Greater trochanteric bursitis of left hip 201309/19/2020 Left hip impingement syndrome 08/07/2014 Colitis 04/13/2014 07/30/2017 Stiffness in joint 12/02/2011 09/19/2020 Visit for gynecologic examination 10/05/2011 09/19/2020 Hypothyroid 05/21/2011 09/21/2013 Hair loss 06/18/2010 09/19/2020 Thyroid disorder 06/18/2010 09/19/2020 Unspecified hypertrophic and atrophic condition of skin 06/14/2008 08/12/2015 Scar condition and fibrosis of skin 06/14/2008 08/12/2015 Abnormal mammogram, unspecified 03/19/2008 04/10/2008 GOITER NOS 08/26/2007 01/09/2016 OSTEOARTHRITIS 08/26/2007 01/09/2016 Overview: Hand and TS and LS spine VISUAL REFRACTION ERROR 08/26/2007 01/09/20 16 Sleep disturbance, unspecified 08/26/2007 0 01/09/2016 Unspecified hearing loss 08/26/2007 016 Irritable bowel syndrome 08/26/2007 020 Anemia, unspecified 06/09/2005 08/31/2008 Palpitations 07/06/2003 08/31/2008 Alopecia, unspecified 07/06/2003 08/31/2008 Diarrhea 08/31/2008 Need for prophylactic hormon e replacement therapy (postmenopausal) 09/10/2015 Unspecified vitamin D deficiency 06/29/2008 hx of breast cancer ER positive 09/10/2015 Dyspareunia 09/19/2020 Vaginismus 09/19/2020 documented as of this encounter (statuses as of 09/02/2022) [facility] History of Past illness Narrative* Problem Noted Date Resolved Date Hypertensive emergency 12/22/2019 0 Chest pain 11/22/2019 09/19/2020 Overview: History of HTN and history of SVT with normal cath in the past, Recently admitted to OSH in October with HTN urgency and neurological evaluation of slurred speech, SALTER and MS changes. 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 Antihypertensives were adjusted. She presents to ED complaining of chest pressure. Patient states she has had midsternal chest pressure for the past 2 weeks with exertion. It resolves with rest. She has associated shortness of breath and also improves with rest. She had lightheadedness but no diaphoresis, nausea. In the ED the ECG shows NSR at 63 bpm, no STEMI. New T wave inversion in AVL, compared to prior 10/19/2019. She was found to have elevated troponin and hyperkaliemia in setting of new onset BRIGHT on CKD with creatine 1.68 (baseline creatine- 1.1-1.2) CK/CKMB negative. Patient transferred to [facility] for further evaluation. OSH Echo 10/2019 EF 65%, stage 1 diastolic dysfunction, mild TR Plan cycle enzymes CK 150 Trop T 0.053 BP management treatment of BRIGHT improved off cozaar and maxzide creat 1.35 repeat echo completed and pending Stress test scheduled 11/24/2019 at 7:45 No scar or ischemia Hyperkalemia 11/22/2019 12/15/2019 Overview: see plan CKD BRIGHT (acute kidney injury) 11/22/20192019 Overview: see plan BRIGHT Atypical chest pain 11/22/2019 09/19/2020 Delirium 10/19/2019 10/22/2019 Headache 10/18/2019 10/22/2019 Impingement syndrome of left shoulder 03/01/2019 09/19/2020 Atrophy of gluteus carlyn muscle 01/17/2019 09/19/2020 Bilateral leg weakness 04/06/2018 0 Strain of rotator cuff 01/06/2017 0 Localized edema 11/10/2016 09/19/2020 Abnormality of gait 09/09/2015 09/19/2020 Tendinopathy of left gluteus medius 08/23/2014 09/19/2020 Greater trochanteric bursitis of left hip 201309/19/2020 Left hip impingement syndrome 08/07/2014 Colitis 04/13/2014 07/30/2017 Stiffness in joint 12/02/2011 09/19/2020 Visit for gynecologic examination 10/05/2011 09/19/2020 Hypothyroid 05/21/2011 09/21/2013 Hair loss 06/18/2010 09/19/2020 Thyroid disorder 06/18/2010 09/19/2020 Unspecified hypertrophic and atrophic condition of skin 06/14/2008 08/12/2015 Scar condition and fibrosis of skin 06/14/2008 08/12/2015 Abnormal mammogram, unspecified 03/19/2008 04/10/2008 GOITER NOS 08/26/2007 01/09/2016 OSTEOARTHRITIS 08/26/2007 01/09/2016 Overview: Hand and TS and LS spine VISUAL REFRACTION ERROR 08/26/2007 01/09/20 16 Sleep disturbance, unspecified 08/26/2007 0 01/09/2016 Unspecified hearing loss 08/26/2007 016 Irritable bowel syndrome 08/26/2007 020 Anemia, unspecified 06/09/2005 08/31/2008 Palpitations 07/06/2003 08/31/2008 Alopecia, unspecified 07/06/2003 08/31/2008 Diarrhea 08/31/2008 Need for prophylactic hormon e replacement therapy (postmenopausal) 09/10/2015 Unspecified vitamin D deficiency 06/29/2008 hx of breast cancer ER positive 09/10/2015 Dyspareunia 09/19/2020 Vaginismus 09/19/2020 documented as of this encounter (statuses as of 09/11/2022) [facility]03-06-2020 History of Past illness Narrative* Problem Noted Date Resolved Date Hypertensive emergency 12/22/2019 0 Chest pain 11/22/2019 09/19/2020 Overview: History of HTN and history of SVT with normal cath in the past, Recently admitted to OSH in October with HTN urgency and neurological evaluation of slurred speech, SALTER and MS changes. 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 Antihypertensives were adjusted. She presents to ED complaining of chest pressure. Patient states she has had midsternal chest pressure for the past 2 weeks with exertion. It resolves with rest. She has associated shortness of breath and also improves with rest. She had lightheadedness but no diaphoresis, nausea. In the ED the ECG shows NSR at 63 bpm, no STEMI. New T wave inversion in AVL, compared to prior 10/19/2019. She was found to have elevated troponin and hyperkaliemia in setting of new onset BRIGHT on CKD with creatine 1.68 (baseline creatine- 1.1-1.2) CK/CKMB negative. Patient transferred to [facility] for further evaluation. OSH Echo 10/2019 EF 65%, stage 1 diastolic dysfunction, mild TR Plan cycle enzymes CK 150 Trop T 0.053 BP management treatment of BRIGHT improved off cozaar and maxzide creat 1.35 repeat echo completed and pending Stress test scheduled 11/24/2019 at 7:45 No scar or ischemia Hyperkalemia 11/22/2019 12/15/2019 Overview: see plan CKD BRIGHT (acute kidney injury) 11/22/20192019 Overview: see plan BRIGHT Atypical chest pain 11/22/2019 09/19/2020 Delirium 10/19/2019 10/22/2019 Headache 10/18/2019 10/22/2019 Impingement syndrome of left shoulder 03/01/2019 09/19/2020 Atrophy of gluteus carlyn muscle 01/17/2019 09/19/2020 Bilateral leg weakness 04/06/2018 0 Strain of rotator cuff 01/06/2017 0 Localized edema 11/10/2016 09/19/2020 Abnormality of gait 09/09/2015 09/19/2020 Tendinopathy of left gluteus medius 08/23/2014 09/19/2020 Greater trochanteric bursitis of left hip 201309/19/2020 Left hip impingement syndrome 08/07/2014 Colitis 04/13/2014 07/30/2017 Stiffness in joint 12/02/2011 09/19/2020 Visit for gynecologic examination 10/05/2011 09/19/2020 Hypothyroid 05/21/2011 09/21/2013 Hair loss 06/18/2010 09/19/2020 Thyroid disorder 06/18/2010 09/19/2020 Unspecified hypertrophic and atrophic condition of skin 06/14/2008 08/12/2015 Scar condition and fibrosis of skin 06/14/2008 08/12/2015 Abnormal mammogram, unspecified 03/19/2008 04/10/2008 GOITER NOS 08/26/2007 01/09/2016 OSTEOARTHRITIS 08/26/2007 01/09/2016 Overview: Hand and TS and LS spine VISUAL REFRACTION ERROR 08/26/2007 01/09/20 16 Sleep disturbance, unspecified 08/26/2007 0 01/09/2016 Unspecified hearing loss 08/26/2007 016 Irritable bowel syndrome 08/26/2007 020 Anemia, unspecified 06/09/2005 08/31/2008 Palpitations 07/06/2003 08/31/2008 Alopecia, unspecified 07/06/2003 08/31/2008 Diarrhea 08/31/2008 Need for prophylactic hormon e replacement therapy (postmenopausal) 09/10/2015 Unspecified vitamin D deficiency 06/29/2008 hx of breast cancer ER positive 09/10/2015 Dyspareunia 09/19/2020 Vaginismus 09/19/2020 documented as of this encounter (statuses as of 09/14/2022) [facility]03-[facility]2020 History of Past illness Narrative* Problem Noted Date Resolved Date Hypertensive emergency 12/22/2019 0 Chest pain 11/22/2019 09/19/2020 Overview: History of HTN and history of SVT with normal cath in the past, Recently admitted to OSH in October with HTN urgency and neurological evaluation of slurred speech, SALTER and MS changes. 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 Antihypertensives were adjusted. She presents to ED complaining of chest pressure. Patient states she has had midsternal chest pressure for the past 2 weeks with exertion. It resolves with rest. She has associated shortness of breath and also improves with rest. She had lightheadedness but no diaphoresis, nausea. In the ED the ECG shows NSR at 63 bpm, no STEMI. New T wave inversion in AVL, compared to prior 10/19/2019. She was found to have elevated troponin and hyperkaliemia in setting of new onset BRIGHT on CKD with creatine 1.68 (baseline creatine- 1.1-1.2) CK/CKMB negative. Patient transferred to [facility] for further evaluation. OSH Echo 10/2019 EF 65%, stage 1 diastolic dysfunction, mild TR Plan cycle enzymes CK 150 Trop T 0.053 BP management treatment of BRIGHT improved off cozaar and maxzide creat 1.35 repeat echo completed and pending Stress test scheduled 11/24/2019 at 7:45 No scar or ischemia Hyperkalemia 11/22/2019 12/15/2019 Overview: see plan CKD BRIGHT (acute kidney injury) 11/22/20192019 Overview: see plan BRIGHT Atypical chest pain 11/22/2019 09/19/2020 Delirium 10/19/2019 10/22/2019 Headache 10/18/2019 10/22/2019 Impingement syndrome of left shoulder 03/01/2019 09/19/2020 Atrophy of gluteus carlyn muscle 01/17/2019 09/19/2020 Bilateral leg weakness 04/06/2018 0 Strain of rotator cuff 01/06/2017 0 Localized edema 11/10/2016 09/19/2020 Abnormality of gait 09/09/2015 09/19/2020 Tendinopathy of left gluteus medius 08/23/2014 09/19/2020 Greater trochanteric bursitis of left hip 201309/19/2020 Left hip impingement syndrome 08/07/2014 Colitis 04/13/2014 07/30/2017 Stiffness in joint 12/02/2011 09/19/2020 Visit for gynecologic examination 10/05/2011 09/19/2020 Hypothyroid 05/21/2011 09/21/2013 Hair loss 06/18/2010 09/19/2020 Thyroid disorder 06/18/2010 09/19/2020 Unspecified hypertrophic and atrophic condition of skin 06/14/2008 08/12/2015 Scar condition and fibrosis of skin 06/14/2008 08/12/2015 Abnormal mammogram, unspecified 03/19/2008 04/10/2008 GOITER NOS 08/26/2007 01/09/2016 OSTEOARTHRITIS 08/26/2007 01/09/2016 Overview: Hand and TS and LS spine VISUAL REFRACTION ERROR 08/26/2007 01/09/20 16 Sleep disturbance, unspecified 08/26/2007 0 01/09/2016 Unspecified hearing loss 08/26/2007 016 Irritable bowel syndrome 08/26/2007 020 Anemia, unspecified 06/09/2005 08/31/2008 Palpitations 07/06/2003 08/31/2008 Alopecia, unspecified 07/06/2003 08/31/2008 Diarrhea 08/31/2008 Need for prophylactic hormon e replacement therapy (postmenopausal) 09/10/2015 Unspecified vitamin D deficiency 06/29/2008 hx of breast cancer ER positive 09/10/2015 Dyspareunia 09/19/2020 Vaginismus 09/19/2020 documented as of this encounter (statuses as of 10/01/2022) [facility]03-[facility] History of Past illness Narrative* Problem Noted Date Resolved Date Hypertensive emergency 12/22/2019 0 Chest pain 11/22/2019 09/19/2020 Overview: History of HTN and history of SVT with normal cath in the past, Recently admitted to OSH in October with HTN urgency and neurological evaluation of slurred speech, SALTER and MS changes. 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 Antihypertensives were adjusted. She presents to ED complaining of chest pressure. Patient states she has had midsternal chest pressure for the past 2 weeks with exertion. It resolves with rest. She has associated shortness of breath and also improves with rest. She had lightheadedness but no diaphoresis, nausea. In the ED the ECG shows NSR at 63 bpm, no STEMI. New T wave inversion in AVL, compared to prior 10/19/2019. She was found to have elevated troponin and hyperkaliemia in setting of new onset BRIGHT on CKD with creatine 1.68 (baseline creatine- 1.1-1.2) CK/CKMB negative. Patient transferred to [facility] for further evaluation. OSH Echo 10/2019 EF 65%, stage 1 diastolic dysfunction, mild TR Plan cycle enzymes CK 150 Trop T 0.053 BP management treatment of BRIGHT improved off cozaar and maxzide creat 1.35 repeat echo completed and pending Stress test scheduled 11/24/2019 at 7:45 No scar or ischemia Hyperkalemia 11/22/2019 12/15/2019 Overview: see plan CKD BRIGHT (acute kidney injury) 11/22/20192019 Overview: see plan BRIGHT Atypical chest pain 11/22/2019 09/19/2020 Delirium 10/19/2019 10/22/2019 Headache 10/18/2019 10/22/2019 Impingement syndrome of left shoulder 03/01/2019 09/19/2020 Atrophy of gluteus carlyn muscle 01/17/2019 09/19/2020 Bilateral leg weakness 04/06/2018 0 Strain of rotator cuff 01/06/2017 0 Localized edema 11/10/2016 09/19/2020 Abnormality of gait 09/09/2015 09/19/2020 Tendinopathy of left gluteus medius 08/23/2014 09/19/2020 Greater trochanteric bursitis of left hip 201309/19/2020 Left hip impingement syndrome 08/07/2014 Colitis 04/13/2014 07/30/2017 Stiffness in joint 12/02/2011 09/19/2020 Visit for gynecologic examination 10/05/2011 09/19/2020 Hypothyroid 05/21/2011 09/21/2013 Hair loss 06/18/2010 09/19/2020 Thyroid disorder 06/18/2010 09/19/2020 Unspecified hypertrophic and atrophic condition of skin 06/14/2008 08/12/2015 Scar condition and fibrosis of skin 06/14/2008 08/12/2015 Abnormal mammogram, unspecified 03/19/2008 04/10/2008 GOITER NOS 08/26/2007 01/09/2016 OSTEOARTHRITIS 08/26/2007 01/09/2016 Overview: Hand and TS and LS spine VISUAL REFRACTION ERROR 08/26/2007 01/09/20 16 Sleep disturbance, unspecified 08/26/2007 0 01/09/2016 Unspecified hearing loss 08/26/2007 016 Irritable bowel syndrome 08/26/2007 020 Anemia, unspecified 06/09/2005 08/31/2008 Palpitations 07/06/2003 08/31/2008 Alopecia, unspecified 07/06/2003 08/31/2008 Diarrhea 08/31/2008 Need for prophylactic hormon e replacement therapy (postmenopausal) 09/10/2015 Unspecified vitamin D deficiency 06/29/2008 hx of breast cancer ER positive 09/10/2015 Dyspareunia 09/19/2020 Vaginismus 09/19/2020 documented as of this encounter (statuses as of 10/01/2022) [facility]03[facility] History of Past illness Narrative* Problem Noted Date Resolved Date Hypertensive emergency 12/22/2019 0 Chest pain 11/22/2019 09/19/2020 Overview: History of HTN and history of SVT with normal cath in the past, Recently admitted to OSH in October with HTN urgency and neurological evaluation of slurred speech, SALTER and MS changes. 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 Antihypertensives were adjusted. She presents to ED complaining of chest pressure. Patient states she has had midsternal chest pressure for the past 2 weeks with exertion. It resolves with rest. She has associated shortness of breath and also improves with rest. She had lightheadedness but no diaphoresis, nausea. In the ED the ECG shows NSR at 63 bpm, no STEMI. New T wave inversion in AVL, compared to prior 10/19/2019. She was found to have elevated troponin and hyperkaliemia in setting of new onset BRIGHT on CKD with creatine 1.68 (baseline creatine- 1.1-1.2) CK/CKMB negative. Patient transferred to [facility] for further evaluation. OSH Echo 10/2019 EF 65%, stage 1 diastolic dysfunction, mild TR Plan cycle enzymes CK 150 Trop T 0.053 BP management treatment of BRIGHT improved off cozaar and maxzide creat 1.35 repeat echo completed and pending Stress test scheduled 11/24/2019 at 7:45 No scar or ischemia Hyperkalemia 11/22/2019 12/15/2019 Overview: see plan CKD BRIGHT (acute kidney injury) 11/22/20192019 Overview: see plan BRIGHT Atypical chest pain 11/22/2019 09/19/2020 Delirium 10/19/2019 10/22/2019 Headache 10/18/2019 10/22/2019 Impingement syndrome of left shoulder 03/01/2019 09/19/2020 Atrophy of gluteus carlyn muscle 01/17/2019 09/19/2020 Bilateral leg weakness 04/06/2018 0 Strain of rotator cuff 01/06/2017 0 Localized edema 11/10/2016 09/19/2020 Abnormality of gait 09/09/2015 09/19/2020 Tendinopathy of left gluteus medius 08/23/2014 09/19/2020 Greater trochanteric bursitis of left hip 201309/19/2020 Left hip impingement syndrome 08/07/2014 Colitis 04/13/2014 07/30/2017 Stiffness in joint 12/02/2011 09/19/2020 Visit for gynecologic examination 10/05/2011 09/19/2020 Hypothyroid 05/21/2011 09/21/2013 Hair loss 06/18/2010 09/19/2020 Thyroid disorder 06/18/2010 09/19/2020 Unspecified hypertrophic and atrophic condition of skin 06/14/2008 08/12/2015 Scar condition and fibrosis of skin 06/14/2008 08/12/2015 Abnormal mammogram, unspecified 03/19/2008 04/10/2008 GOITER NOS 08/26/2007 01/09/2016 OSTEOARTHRITIS 08/26/2007 01/09/2016 Overview: Hand and TS and LS spine VISUAL REFRACTION ERROR 08/26/2007 01/09/20 16 Sleep disturbance, unspecified 08/26/2007 0 01/09/2016 Unspecified hearing loss 08/26/2007 016 Irritable bowel syndrome 08/26/2007 020 Anemia, unspecified 06/09/2005 08/31/2008 Palpitations 07/06/2003 08/31/2008 Alopecia, unspecified 07/06/2003 08/31/2008 Diarrhea 08/31/2008 Need for prophylactic hormon e replacement therapy (postmenopausal) 09/10/2015 Unspecified vitamin D deficiency 06/29/2008 hx of breast cancer ER positive 09/10/2015 Dyspareunia 09/19/2020 Vaginismus 09/19/2020 documented as of this encounter (statuses as of 10/06/2022) [facility]03-[facility] History of Past illness Narrative* Problem Noted Date Resolved Date Hypertensive emergency 12/22/2019 0 Chest pain 11/22/2019 09/19/2020 Overview: History of HTN and history of SVT with normal cath in the past, Recently admitted to OSH in October with HTN urgency and neurological evaluation of slurred speech, SALTER and MS changes. 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 Antihypertensives were adjusted. She presents to ED complaining of chest pressure. Patient states she has had midsternal chest pressure for the past 2 weeks with exertion. It resolves with rest. She has associated shortness of breath and also improves with rest. She had lightheadedness but no diaphoresis, nausea. In the ED the ECG shows NSR at 63 bpm, no STEMI. New T wave inversion in AVL, compared to prior 10/19/2019. She was found to have elevated troponin and hyperkaliemia in setting of new onset BRIGHT on CKD with creatine 1.68 (baseline creatine- 1.1-1.2) CK/CKMB negative. Patient transferred to [facility] for further evaluation. OSH Echo 10/2019 EF 65%, stage 1 diastolic dysfunction, mild TR Plan cycle enzymes CK 150 Trop T 0.053 BP management treatment of BRIGHT improved off cozaar and maxzide creat 1.35 repeat echo completed and pending Stress test scheduled 11/24/2019 at 7:45 No scar or ischemia Hyperkalemia 11/22/2019 12/15/2019 Overview: see plan CKD BRIGHT (acute kidney injury) 11/22/20192019 Overview: see plan BRIGHT Atypical chest pain 11/22/2019 09/19/2020 Delirium 10/19/2019 10/22/2019 Headache 10/18/2019 10/22/2019 Impingement syndrome of left shoulder 03/01/2019 09/19/2020 Atrophy of gluteus carlyn muscle 01/17/2019 09/19/2020 Bilateral leg weakness 04/06/2018 0 Strain of rotator cuff 01/06/2017 0 Localized edema 11/10/2016 09/19/2020 Abnormality of gait 09/09/2015 09/19/2020 Tendinopathy of left gluteus medius 08/23/2014 09/19/2020 Greater trochanteric bursitis of left hip 201309/19/2020 Left hip impingement syndrome 08/07/2014 Colitis 04/13/2014 07/30/2017 Stiffness in joint 12/02/2011 09/19/2020 Visit for gynecologic examination 10/05/2011 09/19/2020 Hypothyroid 05/21/2011 09/21/2013 Hair loss 06/18/2010 09/19/2020 Thyroid disorder 06/18/2010 09/19/2020 Unspecified hypertrophic and atrophic condition of skin 06/14/2008 08/12/2015 Scar condition and fibrosis of skin 06/14/2008 08/12/2015 Abnormal mammogram, unspecified 03/19/2008 04/10/2008 GOITER NOS 08/26/2007 01/09/2016 OSTEOARTHRITIS 08/26/2007 01/09/2016 Overview: Hand and TS and LS spine VISUAL REFRACTION ERROR 08/26/2007 01/09/20 16 Sleep disturbance, unspecified 08/26/2007 0 01/09/2016 Unspecified hearing loss 08/26/2007 016 Irritable bowel syndrome 08/26/2007 020 Anemia, unspecified 06/09/2005 08/31/2008 Palpitations 07/06/2003 08/31/2008 Alopecia, unspecified 07/06/2003 08/31/2008 Diarrhea 08/31/2008 Need for prophylactic hormon e replacement therapy (postmenopausal) 09/10/2015 Unspecified vitamin D deficiency 06/29/2008 hx of breast cancer ER positive 09/10/2015 Dyspareunia 09/19/2020 Vaginismus 09/19/2020 documented as of this encounter (statuses as of 10/11/2022) [facility]03[facility] History of Past illness Narrative* Problem Noted Date Resolved Date Hypertensive emergency 12/22/2019 0 Chest pain 11/22/2019 09/19/2020 Overview: History of HTN and history of SVT with normal cath in the past, Recently admitted to OSH in October with HTN urgency and neurological evaluation of slurred speech, SALTER and MS changes. 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 Antihypertensives were adjusted. She presents to ED complaining of chest pressure. Patient states she has had midsternal chest pressure for the past 2 weeks with exertion. It resolves with rest. She has associated shortness of breath and also improves with rest. She had lightheadedness but no diaphoresis, nausea. In the ED the ECG shows NSR at 63 bpm, no STEMI. New T wave inversion in AVL, compared to prior 10/19/2019. She was found to have elevated troponin and hyperkaliemia in setting of new onset BRIGHT on CKD with creatine 1.68 (baseline creatine- 1.1-1.2) CK/CKMB negative. Patient transferred to [facility] for further evaluation. OSH Echo 10/2019 EF 65%, stage 1 diastolic dysfunction, mild TR Plan cycle enzymes CK 150 Trop T 0.053 BP management treatment of BRIGHT improved off cozaar and maxzide creat 1.35 repeat echo completed and pending Stress test scheduled 11/24/2019 at 7:45 No scar or ischemia Hyperkalemia 11/22/2019 12/15/2019 Overview: see plan CKD BRIGHT (acute kidney injury) 11/22/20192019 Overview: see plan BRIGHT Atypical chest pain 11/22/2019 09/19/2020 Delirium 10/19/2019 10/22/2019 Headache 10/18/2019 10/22/2019 Impingement syndrome of left shoulder 03/01/2019 09/19/2020 Atrophy of gluteus carlyn muscle 01/17/2019 09/19/2020 Bilateral leg weakness 04/06/2018 0 Strain of rotator cuff 01/06/2017 0 Localized edema 11/10/2016 09/19/2020 Abnormality of gait 09/09/2015 09/19/2020 Tendinopathy of left gluteus medius 08/23/2014 09/19/2020 Greater trochanteric bursitis of left hip 201309/19/2020 Left hip impingement syndrome 08/07/2014 Colitis 04/13/2014 07/30/2017 Stiffness in joint 12/02/2011 09/19/2020 Visit for gynecologic examination 10/05/2011 09/19/2020 Hypothyroid 05/21/2011 09/21/2013 Hair loss 06/18/2010 09/19/2020 Thyroid disorder 06/18/2010 09/19/2020 Unspecified hypertrophic and atrophic condition of skin 06/14/2008 08/12/2015 Scar condition and fibrosis of skin 06/14/2008 08/12/2015 Abnormal mammogram, unspecified 03/19/2008 04/10/2008 GOITER NOS 08/26/2007 01/09/2016 OSTEOARTHRITIS 08/26/2007 01/09/2016 Overview: Hand and TS and LS spine VISUAL REFRACTION ERROR 08/26/2007 01/09/20 16 Sleep disturbance, unspecified 08/26/2007 0 01/09/2016 Unspecified hearing loss 08/26/2007 016 Irritable bowel syndrome 08/26/2007 020 Anemia, unspecified 06/09/2005 08/31/2008 Palpitations 07/06/2003 08/31/2008 Alopecia, unspecified 07/06/2003 08/31/2008 Diarrhea 08/31/2008 Need for prophylactic hormon e replacement therapy (postmenopausal) 09/10/2015 Unspecified vitamin D deficiency 06/29/2008 hx of breast cancer ER positive 09/10/2015 Dyspareunia 09/19/2020 Vaginismus 09/19/2020 documented as of this encounter (statuses as of 10/29/2022) [facility] History of Past illness Narrative* Problem Noted Date Resolved Date Hypertensive emergency 12/22/2019 0 Chest pain 11/22/2019 09/19/2020 Overview: History of HTN and history of SVT with normal cath in the past, Recently admitted to OSH in October with HTN urgency and neurological evaluation of slurred speech, SALTER and MS changes. 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 Antihypertensives were adjusted. She presents to ED complaining of chest pressure. Patient states she has had midsternal chest pressure for the past 2 weeks with exertion. It resolves with rest. She has associated shortness of breath and also improves with rest. She had lightheadedness but no diaphoresis, nausea. In the ED the ECG shows NSR at 63 bpm, no STEMI. New T wave inversion in AVL, compared to prior 10/19/2019. She was found to have elevated troponin and hyperkaliemia in setting of new onset BRIGHT on CKD with creatine 1.68 (baseline creatine- 1.1-1.2) CK/CKMB negative. Patient transferred to [facility] for further evaluation. OSH Echo 10/2019 EF 65%, stage 1 diastolic dysfunction, mild TR Plan cycle enzymes CK 150 Trop T 0.053 BP management treatment of BRIGHT improved off cozaar and maxzide creat 1.35 repeat echo completed and pending Stress test scheduled 11/24/2019 at 7:45 No scar or ischemia Hyperkalemia 11/22/2019 12/15/2019 Overview: see plan CKD BRIGHT (acute kidney injury) 11/22/20192019 Overview: see plan BRIGHT Atypical chest pain 11/22/2019 09/19/2020 Delirium 10/19/2019 10/22/2019 Headache 10/18/2019 10/22/2019 Impingement syndrome of left shoulder 03/01/2019 09/19/2020 Atrophy of gluteus carlyn muscle 01/17/2019 09/19/2020 Bilateral leg weakness 04/06/2018 0 Strain of rotator cuff 01/06/2017 0 Localized edema 11/10/2016 09/19/2020 Abnormality of gait 09/09/2015 09/19/2020 Tendinopathy of left gluteus medius 08/23/2014 09/19/2020 Greater trochanteric bursitis of left hip 201309/19/2020 Left hip impingement syndrome 08/07/2014 Colitis 04/13/2014 07/30/2017 Stiffness in joint 12/02/2011 09/19/2020 Visit for gynecologic examination 10/05/2011 09/19/2020 Hypothyroid 05/21/2011 09/21/2013 Hair loss 06/18/2010 09/19/2020 Thyroid disorder 06/18/2010 09/19/2020 Unspecified hypertrophic and atrophic condition of skin 06/14/2008 08/12/2015 Scar condition and fibrosis of skin 06/14/2008 08/12/2015 Abnormal mammogram, unspecified 03/19/2008 04/10/2008 GOITER NOS 08/26/2007 01/09/2016 OSTEOARTHRITIS 08/26/2007 01/09/2016 Overview: Hand and TS and LS spine VISUAL REFRACTION ERROR 08/26/2007 01/09/20 16 Sleep disturbance, unspecified 08/26/2007 0 01/09/2016 Unspecified hearing loss 08/26/2007 016 Irritable bowel syndrome 08/26/2007 020 Anemia, unspecified 06/09/2005 08/31/2008 Palpitations 07/06/2003 08/31/2008 Alopecia, unspecified 07/06/2003 08/31/2008 Diarrhea 08/31/2008 Need for prophylactic hormon e replacement therapy (postmenopausal) 09/10/2015 Unspecified vitamin D deficiency 06/29/2008 hx of breast cancer ER positive 09/10/2015 Dyspareunia 09/19/2020 Vaginismus 09/19/2020 documented as of this encounter (statuses as of 11/20/2022) [facility]03-[facility]2020 History of Past illness Narrative* Problem Noted Date Resolved Date Hypertensive emergency 12/22/2019 0 Chest pain 11/22/2019 09/19/2020 Overview: History of HTN and history of SVT with normal cath in the past, Recently admitted to OSH in October with HTN urgency and neurological evaluation of slurred speech, SALTER and MS changes. 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 Antihypertensives were adjusted. She presents to ED complaining of chest pressure. Patient states she has had midsternal chest pressure for the past 2 weeks with exertion. It resolves with rest. She has associated shortness of breath and also improves with rest. She had lightheadedness but no diaphoresis, nausea. In the ED the ECG shows NSR at 63 bpm, no STEMI. New T wave inversion in AVL, compared to prior 10/19/2019. She was found to have elevated troponin and hyperkaliemia in setting of new onset BRIGHT on CKD with creatine 1.68 (baseline creatine- 1.1-1.2) CK/CKMB negative. Patient transferred to [facility] for further evaluation. OSH Echo 10/2019 EF 65%, stage 1 diastolic dysfunction, mild TR Plan cycle enzymes CK 150 Trop T 0.053 BP management treatment of BRIGHT improved off cozaar and maxzide creat 1.35 repeat echo completed and pending Stress test scheduled 11/24/2019 at 7:45 No scar or ischemia Hyperkalemia 11/22/2019 12/15/2019 Overview: see plan CKD BRIGHT (acute kidney injury) 11/22/20192019 Overview: see plan BRIGHT Atypical chest pain 11/22/2019 09/19/2020 Delirium 10/19/2019 10/22/2019 Headache 10/18/2019 10/22/2019 Impingement syndrome of left shoulder 03/01/2019 09/19/2020 Atrophy of gluteus carlyn muscle 01/17/2019 09/19/2020 Bilateral leg weakness 04/06/2018 0 Strain of rotator cuff 01/06/2017 0 Localized edema 11/10/2016 09/19/2020 Abnormality of gait 09/09/2015 09/19/2020 Tendinopathy of left gluteus medius 08/23/2014 09/19/2020 Greater trochanteric bursitis of left hip 201309/19/2020 Left hip impingement syndrome 08/07/2014 Colitis 04/13/2014 07/30/2017 Stiffness in joint 12/02/2011 09/19/2020 Visit for gynecologic examination 10/05/2011 09/19/2020 Hypothyroid 05/21/2011 09/21/2013 Hair loss 06/18/2010 09/19/2020 Thyroid disorder 06/18/2010 09/19/2020 Unspecified hypertrophic and atrophic condition of skin 06/14/2008 08/12/2015 Scar condition and fibrosis of skin 06/14/2008 08/12/2015 Abnormal mammogram, unspecified 03/19/2008 04/10/2008 GOITER NOS 08/26/2007 01/09/2016 OSTEOARTHRITIS 08/26/2007 01/09/2016 Overview: Hand and TS and LS spine VISUAL REFRACTION ERROR 08/26/2007 01/09/20 16 Sleep disturbance, unspecified 08/26/2007 0 01/09/2016 Unspecified hearing loss 08/26/2007 016 Irritable bowel syndrome 08/26/2007 020 Anemia, unspecified 06/09/2005 08/31/2008 Palpitations 07/06/2003 08/31/2008 Alopecia, unspecified 07/06/2003 08/31/2008 Diarrhea 08/31/2008 Need for prophylactic hormon e replacement therapy (postmenopausal) 09/10/2015 Unspecified vitamin D deficiency 06/29/2008 hx of breast cancer ER positive 09/10/2015 Dyspareunia 09/19/2020 Vaginismus 09/19/2020 documented as of this encounter (statuses as of 11/24/2022) [facility] History of Past illness Narrative* Problem Noted Date Resolved Date Hypertensive emergency 12/22/2019 0 Chest pain 11/22/2019 09/19/2020 Overview: History of HTN and history of SVT with normal cath in the past, Recently admitted to OSH in October with HTN urgency and neurological evaluation of slurred speech, SALTER and MS changes. 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 Antihypertensives were adjusted. She presents to ED complaining of chest pressure. Patient states she has had midsternal chest pressure for the past 2 weeks with exertion. It resolves with rest. She has associated shortness of breath and also improves with rest. She had lightheadedness but no diaphoresis, nausea. In the ED the ECG shows NSR at 63 bpm, no STEMI. New T wave inversion in AVL, compared to prior 10/19/2019. She was found to have elevated troponin and hyperkaliemia in setting of new onset BRIGHT on CKD with creatine 1.68 (baseline creatine- 1.1-1.2) CK/CKMB negative. Patient transferred to [facility] for further evaluation. OSH Echo 10/2019 EF 65%, stage 1 diastolic dysfunction, mild TR Plan cycle enzymes CK 150 Trop T 0.053 BP management treatment of BRIGHT improved off cozaar and maxzide creat 1.35 repeat echo completed and pending Stress test scheduled 11/24/2019 at 7:45 No scar or ischemia Hyperkalemia 11/22/2019 12/15/2019 Overview: see plan CKD BRIGHT (acute kidney injury) 11/22/20192019 Overview: see plan BRIGHT Atypical chest pain 11/22/2019 09/19/2020 Delirium 10/19/2019 10/22/2019 Headache 10/18/2019 10/22/2019 Impingement syndrome of left shoulder 03/01/2019 09/19/2020 Atrophy of gluteus carlyn muscle 01/17/2019 09/19/2020 Bilateral leg weakness 04/06/2018 0 Strain of rotator cuff 01/06/2017 0 Localized edema 11/10/2016 09/19/2020 Abnormality of gait 09/09/2015 09/19/2020 Tendinopathy of left gluteus medius 08/23/2014 09/19/2020 Greater trochanteric bursitis of left hip 201309/19/2020 Left hip impingement syndrome 08/07/2014 Colitis 04/13/2014 07/30/2017 Stiffness in joint 12/02/2011 09/19/2020 Visit for gynecologic examination 10/05/2011 09/19/2020 Hypothyroid 05/21/2011 09/21/2013 Hair loss 06/18/2010 09/19/2020 Thyroid disorder 06/18/2010 09/19/2020 Unspecified hypertrophic and atrophic condition of skin 06/14/2008 08/12/2015 Scar condition and fibrosis of skin 06/14/2008 08/12/2015 Abnormal mammogram, unspecified 03/19/2008 04/10/2008 GOITER NOS 08/26/2007 01/09/2016 OSTEOARTHRITIS 08/26/2007 01/09/2016 Overview: Hand and TS and LS spine VISUAL REFRACTION ERROR 08/26/2007 01/09/20 16 Sleep disturbance, unspecified 08/26/2007 0 01/09/2016 Unspecified hearing loss 08/26/2007 016 Irritable bowel syndrome 08/26/2007 020 Anemia, unspecified 06/09/2005 08/31/2008 Palpitations 07/06/2003 08/31/2008 Alopecia, unspecified 07/06/2003 08/31/2008 Diarrhea 08/31/2008 Need for prophylactic hormon e replacement therapy (postmenopausal) 09/10/2015 Unspecified vitamin D deficiency 06/29/2008 hx of breast cancer ER positive 09/10/2015 Dyspareunia 09/19/2020 Vaginismus 09/19/2020 documented as of this encounter (statuses as of 01/06/2023) [facility] History of Past illness Narrative* Problem Noted Date Resolved Date Hypertensive emergency 12/22/2019 0 Chest pain 11/22/2019 09/19/2020 Overview: History of HTN and history of SVT with normal cath in the past, Recently admitted to OSH in October with HTN urgency and neurological evaluation of slurred speech, SALTER and MS changes. 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 Antihypertensives were adjusted. She presents to ED complaining of chest pressure. Patient states she has had midsternal chest pressure for the past 2 weeks with exertion. It resolves with rest. She has associated shortness of breath and also improves with rest. She had lightheadedness but no diaphoresis, nausea. In the ED the ECG shows NSR at 63 bpm, no STEMI. New T wave inversion in AVL, compared to prior 10/19/2019. She was found to have elevated troponin and hyperkaliemia in setting of new onset BRIGHT on CKD with creatine 1.68 (baseline creatine- 1.1-1.2) CK/CKMB negative. Patient transferred to [facility] for further evaluation. OSH Echo 10/2019 EF 65%, stage 1 diastolic dysfunction, mild TR Plan cycle enzymes CK 150 Trop T 0.053 BP management treatment of BRIGHT improved off cozaar and maxzide creat 1.35 repeat echo completed and pending Stress test scheduled 11/24/2019 at 7:45 No scar or ischemia Hyperkalemia 11/22/2019 12/15/2019 Overview: see plan CKD BRIGHT (acute kidney injury) 11/22/20192019 Overview: see plan BRIGHT Atypical chest pain 11/22/2019 09/19/2020 Delirium 10/19/2019 10/22/2019 Headache 10/18/2019 10/22/2019 Impingement syndrome of left shoulder 03/01/2019 09/19/2020 Atrophy of gluteus carlyn muscle 01/17/2019 09/19/2020 Bilateral leg weakness 04/06/2018 0 Strain of rotator cuff 01/06/2017 0 Localized edema 11/10/2016 09/19/2020 Abnormality of gait 09/09/2015 09/19/2020 Tendinopathy of left gluteus medius 08/23/2014 09/19/2020 Greater trochanteric bursitis of left hip 201309/19/2020 Left hip impingement syndrome 08/07/2014 Colitis 04/13/2014 07/30/2017 Stiffness in joint 12/02/2011 09/19/2020 Visit for gynecologic examination 10/05/2011 09/19/2020 Hypothyroid 05/21/2011 09/21/2013 Hair loss 06/18/2010 09/19/2020 Thyroid disorder 06/18/2010 09/19/2020 Unspecified hypertrophic and atrophic condition of skin 06/14/2008 08/12/2015 Scar condition and fibrosis of skin 06/14/2008 08/12/2015 Abnormal mammogram, unspecified 03/19/2008 04/10/2008 GOITER NOS 08/26/2007 01/09/2016 OSTEOARTHRITIS 08/26/2007 01/09/2016 Overview: Hand and TS and LS spine VISUAL REFRACTION ERROR 08/26/2007 01/09/20 16 Sleep disturbance, unspecified 08/26/2007 0 01/09/2016 Unspecified hearing loss 08/26/2007 016 Irritable bowel syndrome 08/26/2007 020 Anemia, unspecified 06/09/2005 08/31/2008 Palpitations 07/06/2003 08/31/2008 Alopecia, unspecified 07/06/2003 08/31/2008 Diarrhea 08/31/2008 Need for prophylactic hormon e replacement therapy (postmenopausal) 09/10/2015 Unspecified vitamin D deficiency 06/29/2008 hx of breast cancer ER positive 09/10/2015 Dyspareunia 09/19/2020 Vaginismus 09/19/2020 documented as of this encounter (statuses as of 01/08/2023) [facility] Diagnosis Thumb pain, left- Primary Primary osteoarthritis of first carpometacarpal joint of left hand Primary localized osteoarthrosis, hand [facility] Diagnosis Primary osteoarthritis of first carpometacarpal joint of left hand- Primary Primary localized osteoarthrosis, hand [facility] Diagnosis Thumb pain, left- Primary NO SHOW [facility] Diagnosis Thumb pain, left- Primary Primary osteoarthritis of first carpometacarpal joint of left hand Primary localized osteoarthrosis, hand [facility] Diagnosis Thumb pain, left- Primary Primary osteoarthritis of first carpometacarpal joint of left hand Primary localized osteoarthrosis, hand [facility] Diagnosis Primary osteoarthritis of first carpometacarpal joint of left hand- Primary Primary localized osteoarthrosis, hand [facility] Diagnosis Primary osteoarthritis of first carpometacarpal joint of left hand- Primary Primary localized osteoarthrosis, hand [facility] Diagnosis Anemia, unspecified type- Primary 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 disease, or chronic kidney disease (HCC) Unspecified hypertensive heart and kidney disease with heart failure and with chronic kidney disease stage I through stage IV, or unspecified Hypothyroidism, unspecified type documented [facility] this encounter [facility]* Diagnosis Anemia due to stage 3b chronic kidney disease (HCC)- Primary Anemia, unspecified type [facility] Diagnosis Telogen effluvium- Primary Seborrheic dermatitis Seborrheic dermatitis, unspecified Encounter for medication monitoring Encounter for therapeutic drug monitoring Verruca vulgaris Viral warts, unspecified Hypothyroidism, unspecified type documented in this encounter [facility]* Diagnosis Chronic heart failure with preserved ejection fraction (HFpEF) (HCC)- Primary 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 disease, or chronic kidney disease (HCC) Unspecified hypertensive heart and kidney disease with heart failure and with chronic kidney disease stage I through stage IV, or unspecified Essential hypertension Unspecified essential hypertension documented [facility] this [facility]* Diagnosis Chronic heart failure with preserved ejection fraction (HFpEF) (HCC)- Primary [facility] Diagnosis White coat syndrome with hypertension- Primary [facility] Diagnosis Encounter for immunization- Primary Need for other specified prophylactic vaccination against single bacterial disease 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 disease, or chronic kidney disease (HCC) Unspecified hypertensive heart and kidney disease with heart failure and with chronic kidney disease stage I through stage IV, or unspecified [facility] Diagnosis Telogen effluvium- Primary [facility] Diagnosis Chronic heart failure with preserved ejection fraction (HFpEF) (HCC)- Primary Essential hypertension Unspecified essential hypertension [facility] Diagnosis Anemia due to stage 3b chronic kidney disease (HCC)- Primary [facility] Diagnosis Anemia due to stage 3b chronic kidney disease (HCC)- Primary [facility] Diagnosis Anemia due to stage 3b chronic kidney disease (HCC)- Primary [facility] Diagnosis Pain with urination- Primary Renal colic [facility] Diagnosis Chronic heart failure with preserved ejection fraction (HCC)- Primary [facility] Diagnosis Trigger thumb of left hand- Primary Trigger finger (acquired) [facility] Diagnosis Fibrocystic breast changes of both breasts- Primary Dense breast Inconclusive mammogram Personal history of breast cancer Personal history of malignant neoplasm of breast Encounter for screening mammogram for breast cancer [facility] Diagnosis Difficulty swallowing pills- Primary Other symptoms involving digestive system Pharyngitis, unspecified etiology [facility] Diagnosis Chronic back pain, unspecified back location, unspecified back pain laterality- Primary [facility] Diagnosis Rib pain on right side- Primary Chest pain, unspecified Epigastric abdominal tenderness without rebound tenderness Thoracogenic scoliosis, unspecified spinal region [facility] Diagnosis Palpitation- Primary Palpitations [facility]* Diagnosis Acute right-sided thoracic back pain- Primary [facility] Diagnosis Medicare annual wellness visit, subsequent- Primary Routine general medical examination at a health care facility Asymptomatic postmenopausal state Thoracogenic scoliosis, unspecified spinal region Chronic thoracic back pain, unspecified back pain laterality Decreased hearing of both ears Anemia due to stage 3b chronic kidney disease (HCC) Epigastric pain Abdominal pain, epigastric Hypothyroidism, unspecified type [facility] Diagnosis Asymptomatic postmenopausal state Medicare annual wellness visit, subsequent Routine general medical examination at a health care facility [facility] Diagnosis 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 Degenerative scoliosis in adult patient Chronic thoracic back pain, unspecified back pain laterality [facility] Diagnosis Sensorineural hearing loss, bilateral- Primary [facility] Diagnosis Telogen effluvium [facility] Diagnosis Acute right-sided thoracic back pain documented in this encounter [facility] note* Diagnosis Epigastric abdominal tenderness without rebound tenderness documented in this encounter [facility] note* Diagnosis Medicare annual wellness visit, subsequent Routine general medical examination at a health care facility Epigastric pain Abdominal pain, epigastric documented in this encounter [facility] note* Diagnosis Urinary retention Retention of urine, unspecified documented in this encounter [facility] note* Diagnosis Exertional dyspnea Other dyspnea and respiratory abnormality [facility] Diagnosis Chronic thoracic back pain, unspecified back pain laterality- Primary 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 [facility] this [facility]* Diagnosis Chronic diastolic (congestive) heart failure (HCC)- Primary documented in this encounter [facility] note* Diagnosis Chronic thoracic back pain, unspecified back pain laterality- Primary Degenerative scoliosis in adult patient 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 for referral (narrative)* Diagnostic Procedure Only (Routine) - Authorized Specialty Diagnoses / Procedures Referred By Tanya rodriguez Referred To Contact US IMAGING Diagnoses Urinary retention Procedures US PELVIS BLADDER US [facility] [address] [place] [address] Us Imaging Referral ID Status Reason Start Date Expiration Date Visits Requested Visits Authorized [id number] Authorized Auto-Generat ed Referral 2 10/31/2023 1 1 * Diagnostic Procedure Only (Routine) - Authorized Specialty Diagnoses / Procedures Referred By Tanya t Referred To Contact US IMAGING Diagnoses Urinary retention Procedures US KIDNEY/BLADDER US RETROPERITONEAL REAL TIME W/IMAGE COMPLETE Miguelina Clemente MD [address] [place] [address] Us Imaging Referral ID Status Reason Start Date Expiration Date Visits Requested Visits Authorized [id number] Authorized Auto-Generat ed Referral 2 10/31/2023 [address] [facility] for referral (narrative)* Outpatient Procedure (Routine) - Authorized Specialty Diagnoses / Procedures Referred By Contac t Referred To Contact [facility] Diagnoses Chronic heart failure with preserved ejection fraction (HCC) Procedures ECHO ECHO TTHRC R-T 2D W/WOM-MODE COMPL SPEC&COLR Melo Rebollar APRN.[employer] [address] [place] [address] [facility] [address] [place] [id number] Referral ID Status Reason Start Date Expiration Date Visits Requested Visits Authorized [id number] Authorized Auto-Generat ed Referral 04/02/2023 11/20/2023 [address] [facility] for referral (narrative)* Diagnostic Procedure Only (Routine) - Pending Review Specialty Diagnoses / Procedures Referred By Contac t Referred To Contact BR IMAG[facility] Diagnoses Encounter for screening mammogram for breast cancer Procedures NICOLE SCREENING W ERNESTO SCREENING DIGITAL BREAST TOMOSYNTHESIS BI SCREENING MAMMOGRAPHY BI 2-VIEW BREAST INC CAD Alicia Escobedo APRN.[employer] [address] [place] [address] [facility] [address] [place] [address] Referral ID Status Reason Start Date Expiration Date Visits Requested Visits Authorized [id number] Pending Review Auto-Generat ed Referral 01/05/2023 02/04/2024 [address] [facility] for referral (narrative)* Diagnostic Procedure Only (Routine) - Pending Review Specialty Diagnoses / Procedures Referred By Contac t Referred To Contact [facility] Diagnoses Medicare annual wellness visit, subsequent Epigastric pain Procedures NM HEPATOBILIARY W EF AND/OR RX HEPATOBIL SYST IMAG INC GB W/PHARMA INTERVENJ Miguelina Clemente MD [address] [place] [address] [facility] [address] [place] [address] Referral ID Status Reason Start Date Expiration Date Visits Requested Visits Authorized [id number] Pending Review Auto-Generat ed Referral 07/05/2023 08/03/2024 1 1 * Consult, Test, Treat (Routine) - Authorized Specialty Diagnoses / Procedures Referred By Contac t Referred To Contact Diagnoses Medicare annual wellness visit, subsequent Decreased hearing of both ears Procedures HEARING TEST/AUDIOGRAM COMPRE AUDIOMETRY THRESHOLD EVAL SP ESTEBANIJ Miguelina Clemente MD [address] [place] [address] [facility] [address] [place] [address] Referral ID Status Reason Start Date Expiration Date Visits Requested Visits Authorized [id number] Authorized Auto-Generat ed Referral 07/05/2023 10/03/2023 1 1 * Consult, Test, Treat (Routine) - Authorized Specialty Diagnoses / Procedures Referred By Contac t Referred To Contact [facility] [place] Diagnoses Medicare annual wellness visit, subsequent Thoracogenic scoliosis, unspecified spinal region Chronic thoracic back pain, unspecified back pain laterality Procedures CONSULT TO [facility] OFFICE/OUTPATIENT [facility] 60-74 MINUTES Miguelina Clemente MD [address] [place] [address] Referral ID Status Reason Start Date Expiration Date Visits Requested Visits Authorized [id number] Authorized PCP Requested Referral 07/05/2023 07/04/2024 [address] [facility] for referral (narrative)* Diagnostic Procedure Only (Routine) - Closed Specialty Diagnoses / Procedures Referred By Contac t Referred To Contact XR IMAGING Diagnoses Acute right-sided thoracic back pain Procedures XR THORACIC GENERAL 3V AP/LAT/SWIMMERS RADEX SPINE THORACIC 3 VIEWS Miguelina Clemente MD [address] [place] [address] [place] [address] Referral ID Status Reason Start Date Expiration Date V isits Requested Visits Authorized [id number] Closed Auto-Generate d Referral 03/08/2023 04/06/2024 1 1 * Diagnostic Procedure Only (Routine) - Closed Specialty Diagnoses / Procedures Referred By Contac t Referred To Contact XR IMAGING Diagnoses Acute right-sided thoracic back pain Procedures XR RIBS/CHEST 3V AP RIB/OBLS/CXR RIGHT RADEX RIBS UNI W/POSTEROANT CH MINIMUM 3 VIEWS Miguelina Clemente MD [address] [place] [address] [place] [address] Referral ID Status Reason Start Date Expiration Date V isits Requested Visits Authorized [id number] Closed Auto-Generate d Referral 03/08/2023 04/06/2024 [address] [facility] for referral (narrative)* Diagnostic Procedure Only (Routine) - Closed Specialty Diagnoses / Procedures Referred By Contac t Referred To Contact US IMAGING Diagnoses Epigastric abdominal tenderness without rebound tenderness Procedures US ABD RIGHT UPPER QUADRANT US ABDOMINAL REAL TIME W/IMAGE LIMITED Miguelina Clemente MD [address] [place] [address] [place] [address] Referral ID Status Reason Start Date Expiration Date V isits Requested Visits Authorized [id number] Closed Auto-Generate d Referral 03/23/2023 04/21/2024 [address] [facility] for referral (narrative)* Diagnostic Procedure Only (Routine) - Closed Specialty Diagnoses / Procedures Referred By Contac t Referred To Contact MOLECULAR & FUNCTIONAL IMAGING Diagnoses Medicare annual wellness visit, subsequent Epigastric pain Procedures NM HEPATOBILIARY W EF AND/OR RX HEPATOBIL SYST IMAG INC GB W/PHARMA INTERVENJ Miguelina Clemente MD [address] [place] [id number] [facility] [address] [place] [address] Referral ID Status Reason Start Date Expiration Date V isits Requested Visits Authorized [id number] Closed Auto-Generate d Referral 07/05/2023 08/03/2024 1 1 [facility] for referral (narrative)* Diagnostic Procedure Only (Routine) - Closed Specialty Diagnoses / Procedures Referred By Tanya rodriguez Referred To Contact US IMAGING Diagnoses Urinary retention Procedures US KIDNEY/BLADDER US RETROPERITONEAL REAL TIME W/IMAGE COMPLETE Miguelina Clemente MD [address] [place] [address] Us Imaging [facility] Referral ID Status Reason Start Date Expiration Date V isits Requested Visits Authorized [id number] Closed Auto-Generate d Referral 10/01/2022 10/31/2023 1 1 [facility] for visit Narrative* Diagnostic Procedure Only (Routine) - Closed Specialty Diagnoses / Procedures Referred By Tanya rodriguez Referred To Contact XR IMAGING Diagnoses Acute right-sided thoracic back pain Procedures XR RIBS/CHEST 3V AP RIB/OBLS/CXR RIGHT RADEX RIBS UNI W/POSTEROANT CH MINIMUM 3 VIEWS Miguelina Clemente MD [address] [place] [address] [place] [address] Referral ID Status Reason Start Date Expiration Date V isits Requested Visits Authorized [id number] Closed Auto-Generate d Referral 03/08/2023 04/06/2024 1 1 [facility] Summary Purpose Family History No Family History Records FoundNo Family History Records FoundNo Family History Records FoundNo Family History Records FoundNo Family History Records Found Advance Directives No Advanced Directives Records FoundDocuments on File Type Date 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 Advance Directive(s) 12/16/2021 4:08 PM Latest Code Status on File Code Status Date Activated Date Inactivated Comments Full Code 10/18/2019 5:45 PM 10/22/2019 5:44 PM Full Code Order Discussed With: Patient Documents on File Type Date Recorded 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 Advance Directive(s) 12/16/2021 4:08 PM Advance Directive(s) 11/26/2021 7:30 AM Advance Directive(s) 10/31/2021 9:14 AM Advance Directive(s) 11/23/2019 3:35 PM Advance Directive(s) 11/22/2019 10:56 AM Advance Directive(s) 02/04/2018 12:21 PM Documents on File Type Date Recorded 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 Advance Directive(s) 12/16/2021 4:08 PM Advance Directive(s) 11/26/2021 7:30 AM Advance Directive(s) 10/31/2021 9:14 AM Advance Directive(s) 11/23/2019 3:35 PM Advance Directive(s) 11/22/2019 10:56 AM Advance Directive(s) 02/04/2018 12:21 PM Latest Code Status on File Code Status Date Activated Date Inactivated Comments Full Code 10/18/2019 5:45 PM 10/22/2019 5:44 PM Documents on File Type Date Recorded 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 Advance Directive(s) 12/16/2021 4:08 PM Latest Code Status on File Code Status Date Activated Date Inactivated Comments Full Code 10/18/2019 5:45 PM 10/22/2019 5:44 PM Question Answer Comments Full Code Order Discussed With: Patient Latest Code Status on File Code Status Date Activated Date Inactivated Comments Full Code 10/18/2019 5:45 PM 10/22/2019 5:44 PM Question Answer Comments Full Code Order Discussed With: Patient Reason for Referral Specialty Diagnoses / Procedures Referred By Tanya rodriguez Referred To Contact Cardiology Diagnoses 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 disease, or chronic kidney disease (HCC) Procedures CONSULT TO CARDIOLOGY OFFICE/OUTPATIENT [facility] 60-74 MINUTES Miguelina Clemente MD [address] [place] [address] Referral ID Status Reason Start Date Expiration Date Visits Requested Visits Authorized [id number] Authorized PCP Requested Referral 04/14/2022 04/14/2023 1 1 Specialty Diagnoses / Procedures Referred By Contac t Referred To Contact Diagnoses Rib pain on right side Thoracogenic scoliosis, unspecified spinal region Procedures CONSULT FOR ACUPUNCTURE OFFICE/OUTPATIENT [facility] 60-74 MINUTES Miguelina Clemente MD [address] [place] [address] Referral ID Status Reason Start Date Expiration Date Visits Requested Visits Authorized [id number] Pending Review PCP Requested Referral 03/23/2023 03/22/2024 1 1 Specialty Diagnoses / Procedures Referred By Contac t Referred To Contact US IMAGING Diagnoses Epigastric abdominal tenderness without rebound tenderness Procedures US ABD RIGHT UPPER QUADRANT US ABDOMINAL REAL TIME W/IMAGE LIMITED Miguelina Clemente MD [address] [place] [address] Us Imaging Referral ID Status Reason Start Date Expiration Date Visits Requested Visits Authorized [id number] Authorized Auto-Generat ed Referral 03/23/2023 04/21/2024 1 1 Specialty Diagnoses / Procedures Referred By Contac t Referred To Contact [facility] Diagnoses Chronic thoracic back pain, unspecified back pain laterality 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 Procedures CONSULT TO PHYSICAL THERAPY PHYSICAL THERAPY EVALUATION HIGH COMPLEX 45 MINS Bertha Yanez, PAMarybel [address] [place] [address] [facility] [address] [address] Referral ID Status Reason Start Date Expiration Date Visits Requested Visits Authorized [id number] Authorized PCP Requested Referral Auto-Generate d Referral 08/05/2024 99 99 Specialty Diagnoses / Procedures Referred By Contac t Referred To Contact Procedures HEARING TEST/AUDIOGRAM COMPRE AUDIOMETRY THRESHOLD EVAL SP RECOGNIJ Cristina Greene, AUD [address] [place] [address] [facility] [address] [place] [address] Referral ID Status Reason Start Date Expiration Date Visits Requested Visits Authorized [id number] Pending Review Auto-Generat ed Referral 07/26/2023 07/26/2024 1 1 Specialty Diagnoses / Procedures Referred By Tanya t Referred To Contact Procedures CARDIOVASCULAR MEDICINE OP FOLLOW UP APPT ORDER William Bautista MD [address] [place] [address] Referral ID Status Reason Start Date Expiration Date Visits Requested Visits Authorized [id number] Ref Not Required PCP Requested Referral 03/31/2024 09/29/2024 1 1 Medications Administered Section Inactive Administered Medications - up to 3 most recent administrations Medication Order MAR Action Action Date Dose Rate Site betamethasone acetate-betamethasone sodium phosphate 3 mg injection (CELESTONE) 3 mg, Injection - FOR ORTHO USE ONLY, ONE TIME INJECTION, 1 dose, Starting on Wed11/24/22 at 1154, Until Wed11/24/22 at 1154 Given 11/24/2022 11:54 AM EST 3 mg Hand, Left lidocaine (PF) 10 mg/mL (1 %) 0.5 mL injection (XYLOCAINE) 0.5 mL, Injection - FOR ORTHO USE ONLY, ONE TIME INJECTION, 1 dose, Starting on Wed11/24/22 at 1154, Until Wed11/24/22 at 1154 Given 11/24/2022 11:54 AM EST 0.5 mL Hand, Left Additional Source Comments INFORMATION SOURCE (unrecogn ized section and content) DATE CREATED AUTHOR AUTHOR'S ORGANIZ ATION 04/07/2018 [facility] DATE CREATED AUTHOR AUTHOR'S ORGANIZ ATION 07/10/2020 [facility] DATE CREATED AUTHOR AUTHOR'S ORGANIZ ATION 02/05/2022 [facility] DATE CREATED AUTHOR AUTHOR'S ORGANIZ ATION 11/03/2023 [facility] Source Comments (unrecognize d section and content) In the event this informatio n is protected by the Federal Confidentiality of Alcohol and Drug Abuse Patient Records regulations: The Federal rules restrict any use of the information to criminally investigate or prosecute any alcohol or drug abuse patient.[facility] the event this information is protected by the Federal Confidentiality of Alcohol and Drug Abuse Patient Records regulations: The Federal rules restrict any use of the information to criminally investigate or prosecute any alcohol or drug abuse patient.[facility] the event this information is protected by the Federal Confidentiality of Alcohol and Drug Abuse Patient Records regulations: The Federal rules restrict any use of the information to criminally investigate or prosecute any alcohol or drug abuse patient.[facility] the event this information is protected by the Federal Confidentiality of Alcohol and Drug Abuse Patient Records regulations: The Federal rules restrict any use of the information to criminally investigate or prosecute any alcohol or drug abuse patient.[facility] the event this information is protected by the Federal Confidentiality of Alcohol and Drug Abuse Patient Records regulations: The Federal rules restrict any use of the information to criminally investigate or prosecute any alcohol or drug abuse patient.[facility] the event this information is protected by the Federal Confidentiality of Alcohol and Drug Abuse Patient Records regulations: The Federal rules restrict any use of the information to criminally investigate or prosecute any alcohol or drug abuse patient.[facility] the event this information is protected by the Federal Confidentiality of Alcohol and Drug Abuse Patient Records regulations: The Federal rules restrict any use of the information to criminally investigate or prosecute any alcohol or drug abuse patient.[facility] the event this information is protected by the Federal Confidentiality of Alcohol and Drug Abuse Patient Records regulations: The Federal rules restrict any use of the information to criminally investigate or prosecute any alcohol or drug abuse patient.[facility] the event this information is protected by the Federal Confidentiality of Alcohol and Drug Abuse Patient Records regulations: The Federal rules restrict any use of the information to criminally investigate or prosecute any alcohol or drug abuse patient.[facility] HospitalIn the event this information is protected by the Federal Confidentiality of Alcohol and Drug Abuse Patient Records regulations: The Federal rules restrict any use of the information to criminally investigate or prosecute any alcohol or drug abuse patient.[facility] HospitalIn the event this information is protected by the Federal Confidentiality of Alcohol and Drug Abuse Patient Records regulations: The Federal rules restrict any use of the information to criminally investigate or prosecute any alcohol or drug abuse patient.[facility] HospitalIn the event this information is protected by the Federal Confidentiality of Alcohol and Drug Abuse Patient Records regulations: The Federal rules restrict any use of the information to criminally investigate or prosecute any alcohol or drug abuse patient.[facility] Hospital[facility] the event this information is protected by the Federal Confidentiality of Alcohol and Drug Abuse Patient Records regulations: The Federal rules restrict any use of the information to criminally investigate or prosecute any alcohol or drug abuse patient.[facility] HospitalIn the event this information is protected by the Federal Confidentiality of Alcohol and Drug Abuse Patient Records regulations: The Federal rules restrict any use of the information to criminally investigate or prosecute any alcohol or drug abuse patient.[facility] HospitalIn the event this information is protected by the Federal Confidentiality of Alcohol and Drug Abuse Patient Records regulations: The Federal rules restrict any use of the information to criminally investigate or prosecute any alcohol or drug abuse patient.[facility] HospitalIn the event this information is protected by the Federal Confidentiality of Alcohol and Drug Abuse Patient Records regulations: The Federal rules restrict any use of the information to criminally investigate or prosecute any alcohol or drug abuse patient.[facility] HospitalIn the event this information is protected by the Federal Confidentiality of Alcohol and Drug Abuse Patient Records regulations: The Federal rules restrict any use of the information to criminally investigate or prosecute any alcohol or drug abuse patient.[facility] HospitalIn the event this information is protected by the Federal Confidentiality of Alcohol and Drug Abuse Patient Records regulations: The Federal rules restrict any use of the information to criminally investigate or prosecute any alcohol or drug abuse patient.[facility] HospitalIn the event this information is protected by the Federal Confidentiality of Alcohol and Drug Abuse Patient Records regulations: The Federal rules restrict any use of the information to criminally investigate or prosecute any alcohol or drug abuse patient.[facility] HospitalIn the event this information is protected by the Federal Confidentiality of Alcohol and Drug Abuse Patient Records regulations: The Federal rules restrict any use of the information to criminally investigate or prosecute any alcohol or drug abuse patient.[facility] HospitalIn the event this information is protected by the Federal Confidentiality of Alcohol and Drug Abuse Patient Records regulations: The Federal rules restrict any use of the information to criminally investigate or prosecute any alcohol or drug abuse patient.[facility] HospitalIn the event this information is protected by the Federal Confidentiality of Alcohol and Drug Abuse Patient Records regulations: The Federal rules restrict any use of the information to criminally investigate or prosecute any alcohol or drug abuse patient.[facility] HospitalIn the event this information is protected by the Federal Confidentiality of Alcohol and Drug Abuse Patient Records regulations: The Federal rules restrict any use of the information to criminally investigate or prosecute any alcohol or drug abuse patient.[facility] HospitalIn the event this information is protected by the Federal Confidentiality of Alcohol and Drug Abuse Patient Records regulations: The Federal rules restrict any use of the information to criminally investigate or prosecute any alcohol or drug abuse patient.[facility] HospitalIn the event this information is protected by the Federal Confidentiality of Alcohol and Drug Abuse Patient Records regulations: The Federal rules restrict any use of the information to criminally investigate or prosecute any alcohol or drug abuse patient.[facility] HospitalIn the event this information is protected by the Federal Confidentiality of Alcohol and Drug Abuse Patient Records regulations: The Federal rules restrict any use of the information to criminally investigate or prosecute any alcohol or drug abuse patient.[facility] HospitalIn the event this information is protected by the Federal Confidentiality of Alcohol and Drug Abuse Patient Records regulations: The Federal rules restrict any use of the information to criminally investigate or prosecute any alcohol or drug abuse patient.[facility] HospitalIn the event this information is protected by the Federal Confidentiality of Alcohol and Drug Abuse Patient Records regulations: The Federal rules restrict any use of the information to criminally investigate or prosecute any alcohol or drug abuse patient.[facility] HospitalIn the event this information is protected by the Federal Confidentiality of Alcohol and Drug Abuse Patient Records regulations: The Federal rules restrict any use of the information to criminally investigate or prosecute any alcohol or drug abuse patient.[facility] HospitalIn the event this information is protected by the Federal Confidentiality of Alcohol and Drug Abuse Patient Records regulations: The Federal rules restrict any use of the information to criminally investigate or prosecute any alcohol or drug abuse patient.[facility] HospitalIn the event this information is protected by the Federal Confidentiality of Alcohol and Drug Abuse Patient Records regulations: The Federal rules restrict any use of the information to criminally investigate or prosecute any alcohol or drug abuse patient.[facility] HospitalIn the event this information is protected by the Federal Confidentiality of Alcohol and Drug Abuse Patient Records regulations: The Federal rules restrict any use of the information to criminally investigate or prosecute any alcohol or drug abuse patient.[facility] HospitalIn the event this information is protected by the Federal Confidentiality of Alcohol and Drug Abuse Patient Records regulations: The Federal rules restrict any use of the information to criminally investigate or prosecute any alcohol or drug abuse patient.[facility] HospitalIn the event this information is protected by the Federal Confidentiality of Alcohol and Drug Abuse Patient Records regulations: The Federal rules restrict any use of the information to criminally investigate or prosecute any alcohol or drug abuse patient.[facility] HospitalIn the event this information is protected by the Federal Confidentiality of Alcohol and Drug Abuse Patient Records regulations: The Federal rules restrict any use of the information to criminally investigate or prosecute any alcohol or drug abuse patient.[facility] HospitalIn the event this information is protected by the Federal Confidentiality of Alcohol and Drug Abuse Patient Records regulations: The Federal rules restrict any use of the information to criminally investigate or prosecute any alcohol or drug abuse patient.[facility] HospitalIn the event this information is protected by the Federal Confidentiality of Alcohol and Drug Abuse Patient Records regulations: The Federal rules restrict any use of the information to criminally investigate or prosecute any alcohol or drug abuse patient.[facility] HospitalIn the event this information is protected by the Federal Confidentiality of Alcohol and Drug Abuse Patient Records regulations: The Federal rules restrict any use of the information to criminally investigate or prosecute any alcohol or drug abuse patient.[facility] HospitalIn the event this information is protected by the Federal Confidentiality of Alcohol and Drug Abuse Patient Records regulations: The Federal rules restrict any use of the information to criminally investigate or prosecute any alcohol or drug abuse patient.[facility] HospitalIn the event this information is protected by the Federal Confidentiality of Alcohol and Drug Abuse Patient Records regulations: The Federal rules restrict any use of the information to criminally investigate or prosecute any alcohol or drug abuse patient.[facility] HospitalIn the event this information is protected by the Federal Confidentiality of Alcohol and Drug Abuse Patient Records regulations: The Federal rules restrict any use of the information to criminally investigate or prosecute any alcohol or drug abuse patient.[facility] HospitalIn the event this information is protected by the Federal Confidentiality of Alcohol and Drug Abuse Patient Records regulations: The Federal rules restrict any use of the information to criminally investigate or prosecute any alcohol or drug abuse patient.[facility] HospitalIn the event this information is protected by the Federal Confidentiality of Alcohol and Drug Abuse Patient Records regulations: The Federal rules restrict any use of the information to criminally investigate or prosecute any alcohol or drug abuse patient.[facility] HospitalIn the event this information is protected by the Federal Confidentiality of Alcohol and Drug Abuse Patient Records regulations: The Federal rules restrict any use of the information to criminally investigate or prosecute any alcohol or drug abuse patient.[facility] HospitalIn the event this information is protected by the Federal Confidentiality of Alcohol and Drug Abuse Patient Records regulations: The Federal rules restrict any use of the information to criminally investigate or prosecute any alcohol or drug abuse patient.[facility] HospitalIn the event this information is protected by the Federal Confidentiality of Alcohol and Drug Abuse Patient Records regulations: The Federal rules restrict any use of the information to criminally investigate or prosecute any alcohol or drug abuse patient.[facility] HospitalIn the event this information is protected by the Federal Confidentiality of Alcohol and Drug Abuse Patient Records regulations: The Federal rules restrict any use of the information to criminally investigate or prosecute any alcohol or drug abuse patient.[facility] HospitalIn the event this information is protected by the Federal Confidentiality of Alcohol and Drug Abuse Patient Records regulations: The Federal rules restrict any use of the information to criminally investigate or prosecute any alcohol or drug abuse patient.[facility] HospitalIn the event this information is protected by the Federal Confidentiality of Alcohol and Drug Abuse Patient Records regulations: The Federal rules restrict any use of the information to criminally investigate or prosecute any alcohol or drug abuse patient.[facility] HospitalIn the event this information is protected by the Federal Confidentiality of Alcohol and Drug Abuse Patient Records regulations: The Federal rules restrict any use of the information to criminally investigate or prosecute any alcohol or drug abuse patient.[facility] HospitalIn the event this information is protected by the Federal Confidentiality of Alcohol and Drug Abuse Patient Records regulations: The Federal rules restrict any use of the information to criminally investigate or prosecute any alcohol or drug abuse patient.[facility] HospitalIn the event this information is protected by the Federal Confidentiality of Alcohol and Drug Abuse Patient Records regulations: The Federal rules restrict any use of the information to criminally investigate or prosecute any alcohol or drug abuse patient.[facility] HospitalIn the event this information is protected by the Federal Confidentiality of Alcohol and Drug Abuse Patient Records regulations: The Federal rules restrict any use of the information to criminally investigate or prosecute any alcohol or drug abuse patient.[facility] HospitalIn the event this information is protected by the Federal Confidentiality of Alcohol and Drug Abuse Patient Records regulations: The Federal rules restrict any use of the information to criminally investigate or prosecute any alcohol or drug abuse patient.[facility] HospitalIn the event this information is protected by the Federal Confidentiality of Alcohol and Drug Abuse Patient Records regulations: The Federal rules restrict any use of the information to criminally investigate or prosecute any alcohol or drug abuse patient.[facility] Reason for Visit (unrecogniz ed section and content) Specialty Diagnoses / Procedures Referred By Contac t Referred To Contact [facility] Diagnoses Chronic thoracic back pain, unspecified back pain laterality 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 Procedures CONSULT TO PHYSICAL THERAPY PHYSICAL THERAPY EVALUATION HIGH COMPLEX 45 MINS Bertha Yanez PA-C [address] [place] [address] [facility] [address] [address] Referral ID Status Reason Start Date Expiration Date Visits Requested Visits Authorized [id number] Authorized PCP Requested Referral Auto-Generate d Referral 3 08/05/2024 99 99 Reason Comments Occupational Therapy Specialty Diagnoses / Procedures Referred By Contac t Referred To Contact [facility] Diagnoses Primary osteoarthritis of first carpometacarpal joint of left hand Procedures CONSULT TO PEA VINER MECHANIC OCCUPATIONAL THERAPY EVAL HIGH COMPLEX 60 MINS Joni Lew PA-C [address] [place] [address] [facility] [address] [address] Referral ID Status Reason Start Date Expiration Date Visits Requested Visits Authorized [id number] Authorized PCP Requested Referral Auto-Generate d Referral 12/09/2021 12/09/2022 99 99 Reason Onset Date Comments Occupational Therapy No Show 01/27/2022 No show Reason Comments OT Progress Note Reason Comments Results Reason Comments Follow Up Reason Comments New Patient Anemia Specialty Diagnoses / Procedures Referred By Contac t Referred To Contact Hematology Diagnoses Anemia, unspecified type Procedures CONSULT TO HEMATOLOGY OFFICE/OUTPATIENT NEW HIGH MDM 60-74 MINUTES Miguelina Clemente MD [address] [place] [address] Referral ID Status Reason Start Date Expiration Date V isits Requested Visits Authorized [id number] Closed PCP Requested Referral 02/19/2022 05/20/2022 1 1 Reason Comments Hair Loss Reason Comments Consult Specialty Diagnoses / Procedures Referred By Contac t Referred To Contact Cardiology Diagnoses 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 disease, or chronic kidney disease (HCC) Procedures CONSULT TO CARDIOLOGY OFFICE/OUTPATIENT 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 Reason Comments Sore Throat took 1/2 sleeping pi ll last night got lodged in throat Reason Comments Event ZIO PATCH Reason Comments PT Discharge Specialty Diagnoses / Procedures Referred By Contac t Referred To Contact [facility] Diagnoses Acute right-sided thoracic back pain Procedures CONSULT TO PHYSICAL THERAPY PHYSICAL THERAPY EVALUATION HIGH COMPLEX 45 MINS Miguelina Clemente MD [address] [place] [address] [facility] [place] [address] [place] [id number] Referral ID Status Reason Start Date Expiration Date Visits Requested Visits Authorized [id number] Authorized PCP Requested Referral Auto-Generate d Referral 03/08/2023 03/07/2024 99 99 Reason Comments Back Pain (Upper Back) Reason Comments Medicare Wellness Exam Reason Comments New Patient Low Back Pain Specialty Diagnoses / Procedures Referred By Contac t Referred To Contact [facility] [place] Diagnoses Medicare annual wellness visit, subsequent Thoracogenic scoliosis, unspecified spinal region Chronic thoracic back pain, unspecified back pain laterality Procedures CONSULT TO [facility] OFFICE/OUTPATIENT [facility] 60-74 MINUTES Miguelina Clemente MD [address] [place] [address] Referral ID Status Reason Start Date Expiration Date V isits Requested Visits Authorized [id number] Closed PCP Requested Referral 07/05/2023 07/04/2024 1 1 Specialty Diagnoses / Procedures Referred By Contac t Referred To Contact Diagnoses Medicare annual wellness visit, subsequent Decreased hearing of both ears Procedures HEARING TEST/AUDIOGRAM COMPRE AUDIOMETRY THRESHOLD EVAL SP ESTEBANIJ Miguelina Clemente MD [address] [place] [address] [facility] [address] [place] [address] Referral ID Status Reason Start Date Expiration Date V isits Requested Visits Authorized [id number] Closed Auto-Generate d Referral 07/05/2023 10/03/2023 1 1 Reason Comments Refill Request Reason Comments Radiology US Specialty Diagnoses / Procedures Referred By Contac t Referred To Contact US IMAGING Diagnoses Epigastric abdominal tenderness without rebound tenderness Procedures US ABD RIGHT UPPER QUADRANT US ABDOMINAL REAL TIME W/IMAGE LIMITED Miguelina Clemente MD [address] [place] [address] Us Imaging [id number] Referral ID Status Reason Start Date Expiration Date V isits Requested Visits Authorized [id number] Closed Auto-Generate d Referral 03/23/2023 04/21/2024 1 1 Reason Comments Radiology [place] Specialty Diagnoses / Procedures Referred By Contac t Referred To Contact [facility] Diagnoses Medicare annual wellness visit, subsequent Epigastric pain Procedures NM HEPATOBILIARY W EF AND/OR RX HEPATOBIL [facility]ST IMAG INC GB W/PHARMA INTERVENJ Miguelina Clemente MD [address] [place] [address] [facility] [address] [place] [id number] Referral ID Status Reason Start Date Expiration Date V isits Requested Visits Authorized [id number] Closed Auto-Generate d Referral 07/05/2023 08/03/2024 1 1 Specialty Diagnoses / Procedures Referred By Contac t Referred To Contact US IMAGING Diagnoses Urinary retention Procedures US PELVIS BLADDER US PELVIC NONOBSTETRIC IMAGE DCMTN LIMITED/F/U Miguelina Clemente MD [address] [place] [address] Us Imaging [place] [address] Referral ID Status Reason Start Date Expiration Date V isits Requested Visits Authorized [id number] Closed Auto-Generate d Referral 10/01/2022 10/31/2023 1 1 Reason Comments PT Eval Reason Onset Date Comments Population Health Navigation Outreach 09/02/2023 [id number] Reason Comments CHF Reason Onset Date Comments Refill Request 10/07/2023 Clonidine and La betalol Care Teams (unrecognized sec tion and content) Supervisor Display Fabrication Relationship Specialty Start Date End Date Miguelina Clemente MD [address] [place] [address] PCP - General Internal Medicine 11/10/16 Erwin Alfred MD [address] [place] [id number] Primary Staff Physician Cardiology 11/07/21 Supervisor Display Fabrication Relationship Specialty Start Date End Date Miguelina Clemente MD [address] [place], [place] [address]40[address] PCP - General Internal Medicine 11/10/16 Erwin Alfred MD [address] [place] [id number] Primary Staff Physician Cardiology 11/07/21 Supervisor Display Fabrication Relationship Specialty Start Date End Date Miguelina Clemente MD [address] [place] [address] PCP - General Internal Medicine 11/10/16 Erwin Alfred MD [address] [place] [address] Primary Staff Physician Cardiology 11/07/21 Supervisor Display Fabrication Relationship Specialty Start Date End Date Miguelina Clemente MD [address] [place], [place] [address] PCP - General Internal Medicine 11/10/16 Erwin Alfred MD [address] [place] [address] Primary Staff Physician Cardiology 11/07/21 Supervisor Display Fabrication Relationship Specialty Start Date End Date Miguelina Clemente MD [address] [place] [address] PCP - General Internal Medicine 11/10/16 Erwin Alfred MD [address] [place] [address] Primary Staff Physician Cardiology 11/07/21 Supervisor Display Fabrication Relationship Specialty Start Date End Date Miguelina Clemente MD [address] [place] [address] PCP - General Internal Medicine 11/10/16 Erwin Alfred MD [address] [place] [address] Primary Staff Physician Cardiology 11/07/21 Supervisor Display Fabrication Relationship Specialty Start Date End Date Miguelina Clemente MD [address] [place], [place] [address]672 PCP - General Internal Medicine 11/10/16 Erwin Alfred MD [address] [place] [address] Primary Staff Physician Cardiology 11/07/21 Supervisor Display Fabrication Relationship Specialty Start Date End Date Miguelina Clemente MD [address] [place] [address] PCP - General Internal Medicine 11/10/16 Erwin Alfred MD [address] [place] [address] Primary Staff Physician Cardiology 11/07/21 Supervisor Display Fabrication Relationship Specialty Start Date End Date Miguelina Clemente MD [address] [place] [address] PCP - General Internal Medicine 11/10/16 Erwin Alfred MD [address] [place] [address] Primary Staff Physician Cardiology 11/07/21 Supervisor Display Fabrication Relationship Specialty Start Date End Date Miguelina Clemente MD [address] [place] [address] PCP - General Internal Medicine 11/10/16 Erwin Alfred MD [address] [place] [address] Primary Staff Physician Cardiology 11/07/21 Supervisor Display Fabrication Relationship Specialty Start Date End Date Miguelina Clemente MD [address] [place], [place] [address] PCP - General Internal Medicine 11/10/16 Erwin Alfred MD [address] [place] [address] Primary Staff Physician Cardiology 11/07/21 Supervisor Display Fabrication Relationship Specialty Start Date End Date Miguelina Clemente MD [address] [place], [place] [address]312 PCP - General Internal Medicine 11/10/16 Erwin Alfred MD [address] [place] [address] Primary Staff Physician Cardiology 11/07/21 Supervisor Display Fabrication Relationship Specialty Start Date End Date Miguelina Clemente MD [address] [place], [place] [address]27[address] PCP - General Internal Medicine 11/10/16 Erwin Alfred MD [address] [place] [address] Primary Staff Physician Cardiology 11/07/21 Supervisor Display Fabrication Relationship Specialty Start Date End Date Miguelina Clemente MD [address] [place] [address] PCP - General Internal Medicine 11/10/16 Erwin Alfred MD [address] [place] [address] Primary Staff Physician Cardiology 11/07/21 Supervisor Display Fabrication Relationship Specialty Start Date End Date Miguelina Clemente MD [address] [place] [address] PCP - General Internal Medicine 11/10/16 Erwin Alfred MD [address] [place] [address] Primary Staff Physician Cardiology 11/07/21 Supervisor Display Fabrication Relationship Specialty Start Date End Date Miguelina Clemente MD [address] [place], [place] [address]64[address] PCP - General Internal Medicine 11/10/16 Erwin Alfred MD [address] [place] [address] Primary Staff Physician Cardiology 11/07/21 Supervisor Display Fabrication Relationship Specialty Start Date End Date Miguelina Clemente MD [address] [place] [address] PCP - General Internal Medicine 11/10/16 Erwin Alfred MD [address] [place] [address] Primary Staff Physician Cardiology 11/07/21 Supervisor Display Fabrication Relationship Specialty Start Date End Date Miguelina Clemente MD [address] [place] [address] PCP - General Internal Medicine 11/10/16 Erwin Alfred MD [address] [place] [address] Primary Staff Physician Cardiology 11/07/21 Supervisor Display Fabrication Relationship Specialty Start Date End Date Miguelina Clemente MD [address] [place] [address] PCP - General Internal Medicine 11/10/16 Erwin Alfred MD [address] [place] [id number] Primary Staff Physician Cardiology 11/07/21 Supervisor Display Fabrication Relationship Specialty Start Date End Date Miguelina Clemente MD [address] [place] [address] PCP - General Internal Medicine 11/10/16 Erwin Alfred MD [address] [place] [address] Primary Staff Physician Cardiology 11/07/21 Supervisor Display Fabrication Relationship Specialty Start Date End Date Miguelina Clemente MD PCP - General Internal Medicine 11/10/16 Erwin Alfred MD [address] [place] [address] Primary Staff Physician Cardiology 11/07/21 Supervisor Display Fabrication Relationship Specialty Start Date End Date Miguelina Clemente MD PCP - General Internal Medicine 11/10/16 Erwin Alfred MD [address] [place] [address] Primary Staff Physician Cardiology 11/07/21 Supervisor Display Fabrication Relationship Specialty Start Date End Date Miguelina Clemente MD PCP - General Internal Medicine 11/10/16 Erwin lAfred MD [address] [place] [address] Primary Staff Physician Cardiology 11/07/21 Supervisor Display Fabrication Relationship Specialty Start Date End Date Miguelina Clemente MD PCP - General Internal Medicine 11/10/16 Erwin Alfred MD [address] [place] [address] Primary Staff Physician Cardiology 11/07/21 Supervisor Display Fabrication Relationship Specialty Start Date End Date Miguelina Clemente MD PCP - General Internal Medicine 11/10/16 Erwin Alfred MD [address] [place] [address] Primary Staff Physician Cardiology 11/07/21 Supervisor Display Fabrication Relationship Specialty Start Date End Date Miguelina Clemente MD PCP - General Internal Medicine 11/10/16 Erwin Alfred MD [address] [place] [address] Primary Staff Physician Cardiology 11/07/21 Supervisor Display Fabrication Relationship Specialty Start Date End Date Miguelina Clemente MD PCP - General Internal Medicine 11/10/16 Erwin Alfred MD [address] [place], [place] [address] Primary Staff Physician Cardiology 11/07/21 Supervisor Display Fabrication Relationship Specialty Start Date End Date Miguelina Clemente MD PCP - General Internal Medicine 11/10/16 Erwin Alfred MD [address] [place] [address] Primary Staff Physician Cardiology 11/07/21 Supervisor Display Fabrication Relationship Specialty Start Date End Date Miguelina Clemente MD PCP - General Internal Medicine 11/10/16 Erwin Alfred MD [address] [place], [place] [address] Primary Staff Physician Cardiology 11/07/21 Supervisor Display Fabrication Relationship Specialty Start Date End Date Miguelina Clemente MD PCP - General Internal Medicine 11/10/16 Erwin Alfred MD [address] [place], [place] [address] Primary Staff Physician Cardiology 11/07/21 Supervisor Display Fabrication Relationship Specialty Start Date End Date Miguelina Clemente MD PCP - General Internal Medicine 11/10/16 Erwin Alfred MD [address] [place] [address] Primary Staff Physician Cardiology 11/07/21 Supervisor Display Fabrication Relationship Specialty Start Date End Date Miguelina Clemente MD PCP - General Internal Medicine 11/10/16 Erwin Alfred MD [address] [place] [address] Primary Staff Physician Cardiology 11/07/21 Supervisor Display Fabrication Relationship Specialty Start Date End Date Miguelina Clemente MD PCP - General Internal Medicine 11/10/16 Erwin Alfred MD [address] [place] [address] Primary Staff Physician Cardiology 11/07/21 Supervisor Display Fabrication Relationship Specialty Start Date End Date Miguelina Clemente MD PCP - General Internal Medicine 11/10/16 Erwin Alfred MD [address] [place] [address] Primary Staff Physician Cardiology 11/07/21 Supervisor Display Fabrication Relationship Specialty Start Date End Date Miguelina Clemente MD PCP - General Internal Medicine 11/10/16 Erwin Alfred MD [address] [place] [address] Primary Staff Physician Cardiology 11/07/21 Supervisor Display Fabrication Relationship Specialty Start Date End Date Miguelina Clemente MD PCP - General Internal Medicine 11/10/16 Erwin Alfred MD [address] [place] [address] Primary Staff Physician Cardiology 11/07/21 Supervisor Display Fabrication Relationship Specialty Start Date End Date Miguelina Clemente MD PCP - General Internal Medicine 11/10/16 Erwin Alfred MD [address] [place] [address] Primary Staff Physician Cardiology 11/07/21 FOR RECORDS PERTAINING TO PATIENTS WHO ARE OR HAVE BEEN ENROLLED IN A CHEMICAL DEPENDENCY/SUBSTANCEABUSE PROGRAM, SOME INFORMATION MAY BE OMITTED. This clinical summary was aggregated from multiple sources. Caution should be exercised in using it in the provision of clinical care. This summary normalizes information from multiple sources, and as a consequence, information in this document may materially change the coding, format and clinical context of patient data. In addition, data may be omitted in some cases. CLINICAL DECISIONS SHOULD BE BASED ON THE PRIMARY CLINICAL RECORDS. [facility]. provides no warranty or guarantee of the accuracy or completeness of information in this document.
[2023-11-06 13:44] VITALS: BP 178/81; PULSE 63
== END 2023-11-06 13:46 | disposition home or self-care (01) ==
PROVIDERS: Physician Assistant; Emergency Provider Emergency Medicine; PCP Internal Medicine; Visit Provider Emergency Medicine
DX: B34.9 Viral infection, unspecified (principal); I50.9 Heart failure, unspecified; I11.0 Hypertensive heart disease with heart failure; R07.9 Chest pain, unspecified; R11.2 Nausea with vomiting, unspecified; Z79.82 Long term (current) use of aspirin; Z79.899 Other long term (current) drug therapy; Z87.891 Personal history of nicotine dependence
CPT/HCPCS: 71046; 80048; 84484; 85025; 87631; 93005; 96374; 99285; J2405

== ENCOUNTER 2025-04-09 18:48 | Inpatient (IN) | payer MEDICARE, OTHER, SELFPAY ==
[2025-04-09] VITALS (7 sets, daily range): BP systolic 165–190; BP diastolic 68–83; PULSE 62–73; RESP 12–15; TEMP 35.9–36.6; O2SAT 94–97; BMI 20.9
--- NOTE | 2025-04-09 19:02 | EKG12_ITS ---
Test Reason : CP Blood Pressure : */* mmHG Vent. Rate : 64 BPM Atrial Rate : 64 BPM P-R Int : 166 ms QRS Dur : 74 ms QT Int : 408 ms P-R-T Axes : 74 54 65 degrees QTcB Int : 420 ms Normal sinus rhythm Possible Left atrial enlargement Borderline ECG Confirmed by AICHA SERRANO, ERICA ([id number]), food editor NICOLAS HUERTAS ([id number]) on 04/10/2025 11:26:13 AM Referred By: GOLDEN Confirmed By: ERICA HOLCOMB MD
[2025-04-09 19:34] LABS: Absolute Lymphocyte Count 1.84 X10^3/uL (0.83-4.51); Absolute Neutrophil Count 2.8 X10^3/uL (2.0-7.7); Basophil# 0.03 X10^3/uL; Basophil% 0.5 % (0-1); Eosinophils% 5.2 % (0-5); Hematocrit 37.2 % (37-47); Hemoglobin 12.4 g/dL (12.0-15.0); Lymphocyte # 1.84 X10^3/ul (0.83-4.51); Lymphocyte % 32.1 % (19-41); Mean Corp Hgb Conc 33.3 g/dL (32-36); Mean Corpuscular Hgb 31.4 pg (27.0-32.0); Mean Corpuscular Volume 94.2 fL (81-99); Mean Platelet Vol. 9.7 fl (6.2-12.0); Monocyte# 0.73 X10^3/uL; Monocyte% 12.7 % (0-10); NRBC Flagged by Analyzer 0 % (0-5); Neutrophil # 2.82 X10^3/uL (2.7-7.7); Neutrophil % 49.3 % (47-70); Platelet Count 216 K/mm3 (150-450); RBC Distribution Width CV 12.9 % (11.6-14.6); RBC Distribution Width SD 44.4 fl (35.1-43.9); Red Blood Count 3.95 M/mm3 (4.2-5.4); White Blood Count 5.7 K/mm3 (4.4-11.0)
--- NOTE | 2025-04-09 19:38 | RAD_ITS ---
PROCEDURE: CHEST 1 VIEW (PORTABLE) 04/09/2025 REASON FOR EXAM: CHEST PAIN TECHNIQUE: Frontal view of the chest. COMPARISON: Chest radiographs on 11/06/2023 and 10/15/2019 FINDINGS: Hardware: None Heart: Cardiac and mediastinal contours are stable. Lungs: Round 8 mm calcification with adjacent surgical clips projecting over the right lower lung zone, unchanged. No new focal consolidation or pleural effusion. Lung volumes are increased with flattening of the hemidiaphragms. Bones: Degenerative changes are identified within the shoulders and thoracic spine. RAD/Chest 1 View (Portable) IMPRESSION: Sequela of COPD, without an acute cardiopulmonary abnormality. Reading Location: [facility]
[2025-04-09 20:40] LABS: Anion Gap 12 (5-15); BUN 31 mg/dL (4-19); BUN/Creat Ratio 20.3 RATIO (10-20); Calcium,Total 9.5 mg/dL (7.6-11.0); Carbon Dioxide 25.2 mmol/L (21.0-32.0); Chloride 101 mmol/L (98-108); Creatinine, Serum 1.54 mg/dL (0.70-1.20); EST Glomerular Filtration Rate 32 (>60); Glucose 98 mg/dL (70-99); Potassium 4.7 mmol/L (3.3-5.1); Sodium Level 138 mmol/L (133-145)
--- NOTE | 2025-04-09 20:54 | ED.VIS.CHEST ---
HPI History of Present Illness Chief Complaint: Chest Pain Narrative Narrative: 89-year-old female with past medical history of congestive heart failure presents with her daughter because of increasing chest pressure, nausea, and mild shortness of breath that she has had especially over the last 5 days. She relates history that her symptoms actually began approximately 1 month ago. Initially 5 days ago they were very intense for the first 24 hours. She has had nausea in the past and states that she took medication which improved it. She gets the sensations of chest pressure suddenly come on, then tend to let up. She denies any recent fevers or chills, no shortness of breath. She sees a wood hacker at the [facility]. While she does not take furosemide daily, she is on other diuretics including Farxiga. No increased swelling of her legs. No exacerbating or alleviating factors. There is no predictability to chest pressure nausea. [facility] Medical History CHF (congestive heart failure) Home Medications ?Medication ?Instructions ?Recorded ?Last Taken ?Type aspirin 81 mg chewable tablet 81 mg PO DAILY@0800 heart 01/18/18 Unknown History levothyroxine 88 mcg tablet 88 mcg PO DAILY thyroid 01/18/18 01/30/18 History acetaminophen 500 mg tablet 1,000 mg (2 x 500 mg) PO Q8 01/21/18 02/01/18 Rx cholecalciferol (vitamin D3) 25 25 mcg PO DAILY 10/16/19 Unknown History mcg (1,000 unit) capsule gabapentin 100 mg capsule 200 mg PO QHS 10/16/19 Unknown History hydrochlorothiazide 25 mg tablet 12.5 mg PO DAILY 10/16/19 Unknown History labetalol 200 mg tablet 100 mg PO BID 10/16/19 Unknown History melatonin 5 mg capsule 5 mg PO QHS 10/16/19 Unknown History valsartan 160 mg tablet 160 mg PO DAILY 10/16/19 Unknown History amlodipine 5 mg tablet 5 mg PO DAILY 10/18/19 Unknown Rx budesonide 3 mg 1 cap PO TID ##0 10/18/19 Unknown Rx capsule,delayed,extended release clonidine 0.1 mg/24 hr weekly 1 patch 11/06/23 Unknown History transdermal patch furosemide 20 mg tablet 20 mg 11/06/23 Unknown History ondansetron 4 mg disintegrating 4 mg PO Q8H PRN PRN Nausea #10 tabs 11/06/23 Unknown Rx tablet indapamide 1.25 mg tablet 1.25 mg PO DAILY 04/09/25 Unknown History minoxidil 2.5 mg tablet PO 04/09/25 Unknown History nitroglycerin 0.4 mg sublingual mg sublingual 04/09/25 Unknown History tablet Allergy/AdvReac Type Severity Reaction Status Date / Time iron Allergy Unknown Verified 04/09/25 18:49 pentazocine (From [place]win) Allergy Other Verified 04/09/25 18:49 scopolamine Allergy Other Verified 04/09/25 18:49 Family History no significant family his Social History Smoking Status: Former smoker ROS ROS ED ROS Narrative Review of systems positive for chest pressure, nausea, mild shortness of breath, no leg swelling, no fevers or chills, no cough. EXAM Physical Exam Narrative Exam Narrative: Afebrile. Vital signs noted. Nontoxic-appearing. Cardiovascular examination reveals a regular rate and rhythm. Lungs are clear to auscultation bilaterally. Abdomen is soft and nontender with normal active bowel sounds. Neurological examination is nonfocal, nonlateralizing. Awake, alert, pleasant. No appreciable pitting edema bilaterally. Const Vital Signs: 04/09/25 18:49 04/09/25 19:49 04/09/25 20:00 Temperature 96.7 F L Temperature Source Temporal Pulse Rate 73 64 65 Respiratory Rate 14 15 Blood Pressure 165/81 H 167/72 H 167/72 H Blood Pressure Mean 109 103 103 Pulse Ox 97 96 96 Oxygen Delivery Method Room Air Room Air Room Air 04/09/25 21:00 04/09/25 22:00 04/09/25 23:00 Temperature Temperature Source Pulse Rate 62 64 66 Respiratory Rate 12 12 15 Blood Pressure 172/68 H 190/83 H 189/83 H Blood Pressure Mean 102 118 118 Pulse Ox 95 96 94 Oxygen Delivery Method Room Air Room Air Room Air MDM MDM MDM Narrative Medical decision making narrative: The differential diagnosis includes but not limited to CHF exacerbation versus ACS versus pneumonia versus pneumothorax. History and physical does not support pneumonia or pneumothorax. EKG was obtained and interpreted by myself independently. It demonstrates normal sinus rhythm at 64 bpm without ectopy or acute ST changes. No STEMI. I reviewed her laboratory work initially and she has normal white count of 5.7 with hemoglobin 12.4, hematocrit 37.2, platelet count normal at 216. BMP is remarkable for BUN of 31 and creatinine 1.54 with glucose 98. Normal sodium and potassium. Initial high-sensitivity troponin is elevated at 95, BNP slightly elevated at 828. Given her elevated troponin, while it could be secondary to her elevated creatinine of 1.54, given her history of chest pressure that was intense 4 to 5 days ago associated with nausea and mild shortness of breath, concern is for NSTEMI. She was started on heparin, and her baby aspirin that she took today was supplemented. Chest x-ray interpreted by myself independently shows no evidence of an acute process, no pneumonia or pneumothorax. I reviewed the radiology report which confirms my independent interpretation. Although her repeat 2-hour troponin is trending downwards at 86, I do feel that given her elevated troponins above threshold rules are in for NSTEMI. I discussed patient with Dr. Reyes with cardiology. Patient will be discussed with the hospitalist Dr. Capellan for admission. Disposition is admit to the PCU in stable condition. History & Record Review Discussion w/independent historian: Patient and Family Additional record(s) reviewed:: Prior ED visit Lab Data Attestation: I reviewed the patient's lab results. Labs: Laboratory Results - last 24 hr 04/09/25 04/09/25 04/09/25 19:24 21:20 21:54 WBC 5.7 RBC 3.95 L Hgb 12.4 Hct 37.2 MCV 94.2 MCH 31.4 MCHC 33.3 RDW Std Deviation 44.4 H RDW Coeff of Gabriella 12.9 Plt Count 216 MPV 9.7 Immature Gran % (Auto) 0.200 Neut % (Auto) 49.3 Lymph % (Auto) 32.1 [place] % (Auto) 12.7 H Eos % (Auto) 5.2 H Baso % (Auto) 0.5 Absolute Neuts (auto) 2.8 Absolute Lymphs (auto) 1.84 Nucleated RBC % 0 PT 13.6 INR 1.0 APTT 28.4 Sodium 138 Potassium 4.7 Chloride 101 Carbon Dioxide 25.2 Anion Gap 12 BUN 31 H Creatinine 1.54 H Estim Creat Clear Calc 23.40 L Est GFR (MDRD) Non-Af 32 L BUN/Creatinine Ratio 20.3 H Glucose 98 Calcium 9.5 Troponin T High Sens 95 H* Troponin T Hi Sens 2 Hr 86 H* NT pro BNP II 828 Radiography Chest X-Ray - ED: 1 View, Read by ED Physician and Read by Radiologist Diagnostic Testing: Clinical Impression(s) from Imaging Studies Chest X-Ray 04/09/25 19:38 IMPRESSION: Sequela of COPD, without an acute cardiopulmonary abnormality. Reading Location: [facility] Management Discussion w/another healthcare provider: Hospitalist and Supervisor [employer] ( cardiology) Discharge Plan Dx/Rx/DC Orders Clinical Impression: Chest pressure, HTN (hypertension), Elevated troponin, Chronic kidney disease Disposition Disposition: Acute Care Hospital [facility]
[2025-04-09 21:13] LABS: Troponin T High Sensitivity 95 ng/L (<=14)
[2025-04-09 21:46] LABS: Pro- Brain NATRIURETIC PEPTIDE 828 pg/mL (<=1800)
[2025-04-09] MEDS: Heparin Injection (Vial) 5,000 UNIT/ML VIAL 3500 UNIT IV (22:02)
[2025-04-09] MEDS: Aspirin 81 MG TAB.CHEW 162 MG PO (22:02)
[2025-04-09] MEDS: HEPARIN/D5w 25,000 UNITS 25,000 UNITS/250 ML IV.SOLN. 7 UNITS CONT INF (22:05)
[2025-04-09 22:09] LABS: Troponin T High Sens 2 HR 86 ng/L (<=14)
[2025-04-09 22:16] LABS: Partial Thromboplast Time 28.4 Seconds (24.1-36.2); Prothrombin Time (Protime)PT. 13.6 SECONDS (11.7-14.9)
--- NOTE | 2025-04-09 22:55 | HP.PCM.HOS_ITS ---
[facility] - General General Date of Admission: 04/09/25 Date of Service: 04/09/25 Chief Complaint: Chest Pain. HPI Narrative ZENAIDA WILKINSON, is a 89 F with past medical history of essential hypertension; on valsartan, labetalol, amlodipine, indapamide, hydrochlorothiazide and furosemide, hypothyroidism; on levothyroxine, former tobacco abuse, history of chronic diastolic CHF; LVEF 65% and stage I diastolic dysfunction (2019) followed by cable installer repairer helper at [facility], neuropathy; on gabapentin, history of microscopic colitis, history of Right breast cancer; s/p lumpectomy with radiation and OA who presents to [facility] ER complaining of chest pain. Ms. Wilkinson reports her symptoms began more than a month ago but then ~5 days ago they became very intense with chest pressure that was [id number], substernal and nonradiating with pain that would come on suddenly and then let up spontaneously with nothing seeming to make the pain better or worse. She also admits to associated shortness of breath and nausea. She denies associated fever, chills, vomiting, diarrhea, constipation lower extremity edema, diaphoresis, cough, headache or rash. In the ER she was noted to have an elevated initial troponin T of 95 ng/L with a CXR that revealed sequela of COPD without an acute cardiopulmonary abnormality with the ER physician then contacting cable installer repairer helper on-call who recommended IV heparin and patient be admitted to the hospitalist service to the PCU for ongoing care for stay that is expected to extend beyond 2 midnights. [facility] Medical History CHF (congestive heart failure) Home Medications ?Medication ?Instructions ?Recorded ?Last Taken ?Type aspirin 81 mg chewable tablet 81 mg PO DAILY@0800 hear t 01/18/18 Unknown History levothyroxine 88 mcg tablet 88 mcg PO DAILY thyroid 04/09/25 History cholecalciferol (vitamin D3) 25 25 mcg PO DAILY Supple ment 10/16/19 04/09/25 History mcg (1,000 unit) capsule labetalol 200 mg tablet 100 mg PO BID Blood pressure 10/16/19 04/09/25 History melatonin 5 mg capsule 5 mg PO QHS Sleep 10/16/19 0 04/09/25 History clonidine 0.1 mg/24 hr weekly 1 patch transdermal QWEE K 11/06/23 04/09/25 History transdermal patch Hypertension furosemide 20 mg tablet 20 mg PO .COMPLEX Diuretic 0 11/06/23 04/09/25 History ondansetron 4 mg disintegrating 4 mg PO Q8H PRN PRN Na usea #10 tabs 11/06/23 Unknown Rx tablet indapamide 1.25 mg tablet 1.25 mg PO DAILY Vlood press ure 04/09/25 04/09/25 History minoxidil 2.5 mg tablet 2.5 mg PO DAILY Hair 5 Unknown History nitroglycerin 0.4 mg sublingual 0.4 mg sublingual PRN Chest pain 04/09/25 Unknown History tablet Allergy/AdvReac Type Severity Reaction Status Date / Time iron Allergy Unknown Verified 04/09/25 18:49 pentazocine (From [place]) Allergy Other Verified 04/09/25 18:49 scopolamine Allergy Other Verified 04/09/25 18:49 Family History no significant family his Social History Smoking Status: Former smoker ROS ROS Narrative Review of Systems: Constitutional: Patient denies fever or chills. Eyes: Patient denies changes in vision or discharge from eyes. ENT: Patient denies runny nose, sore throat or ear pain. Resp: Patient denies shortness of breath or cough. CV: Patient admits to chest pain that is pressure-like, substernal and nonradiating with nothing seeming to make the pain better or worse as per HPI. GI: Patient admits to nausea but she denies vomiting, diarrhea or constipation. : Patient denies dysuria or hematuria. MSK: Patient denies arthralgias or myalgias. Skin: Patient denies rash, abscess, wounds or jaundice. Psych: Patient denies symptoms uncontrolled depression or anxiety. Neuro: Patient denies headache, paresthesias or focal neurologic deficits. Allergy: Patient denies lip swelling, tongue swelling or urticaria. Hematology: Patient denies easy bleeding or easy bruisability. Endocrinology: Patient denies polyuria, polydipsia, polyphagia or heat/cold intolerance. 14 point ROS otherwise negative several positives noted above in HPI. Vital Signs Vital Signs Vital Signs: 04/09/25 18:49 04/09/25 19:49 04/09/25 20:00 Temperature 96.7 F L Temperature Source Temporal Pulse Rate 73 64 65 Respiratory Rate 14 15 Blood Pressure 165/81 H 167/72 H 167/72 H Blood Pressure Mean 109 103 103 Pulse Ox 97 96 96 Oxygen Delivery Method Room Air Room Air Room Air 04/09/25 21:00 04/09/25 22:00 Temperature Temperature Source Pulse Rate 62 64 Respiratory Rate 12 12 Blood Pressure 172/68 H 190/83 H Blood Pressure Mean 102 118 Pulse Ox 95 96 Oxygen Delivery Method Room Air Room Air Weight Weight: 129 lb 6.581 oz Body Mass Index (BMI) 20.9 Physical Exam Const alert, oriented x3, no apparent distress, average body habitus and healthy appearing General Appearance: cooperative HEENT normocephalic, head/scalp atraumatic, hearing grossly normal bilaterally and moist oral mucous membranes Eyes PERRL and EOMs intact bilaterally Neck no lymphadenopathy and supple Resp normal respiratory effort, no retractions, no use of accessory muscles and clear to auscultation bilaterally Cardio regular rate and regular rhythm GI normal to inspection, nondistended, normoactive bowel sounds, soft to palpation, non-tender and non-distended Extremity normal to inspection, full ROM and no clubbing, cyanosis or edema Skin Skin Narrative: Patient has evidence of rash, abscess, wounds or jaundice. Neuro oriented x3, CN's II-XII intact bilaterally, moves all extremities and no focal motor deficits Sensorium / Orientation: awake, alert, oriented to person, oriented to place and oriented to time Speech: speech normal Psych affect normal Results Medical Records Data Attestation: I reviewed the patient's medical records Lab / Micro Data Attestation: I reviewed the patient's lab results. 04/09/25 19:24 04/09/25 19:24 Labs: Laboratory Results - last 24 hr 04/09/25 19:24: WBC 5.7, RBC 3.95 L, Hgb 12.4, Hct 37.2, MCV 94.2, MCH 31.4, MCHC 33.3, RDW Std Deviation 44.4 H, RDW Coeff of Gabriella 12.9, Plt Count 216, MPV 9.7, Immature Gran % (Auto) 0.200, Neut % (Auto) 49.3, Lymph % (Auto) 32.1, [place] % (Auto) 12.7 H, Eos % (Auto) 5.2 H, Baso % (Auto) 0.5, Absolute Neuts (auto) 2.8, Absolute Lymphs (auto) 1.84, Nucleated RBC % 0, Sodium 138, Potassium 4.7, Chloride 101, Carbon Dioxide 25.2, Anion Gap 12, BUN 31 H, Creatinine 1.54 H, E stim Creat Clear Calc 23.40 L, Est GFR (MDRD) Non-Af 32 L, BUN/Creatinine Ratio 20.3 H, Glucose 98, Calcium 9.5, Troponin T High Sens 95 H*, NT pro BNP II 828 04/09/25 21:20: Troponin T Hi Sens 2 Hr 86 H* 04/09/25 21:54: PT 13.6, INR 1.0, APTT 28.4 Imaging Radiology Impression Chest X-Ray 04/09/25 19:38 IMPRESSION: Sequela of COPD, without an acute cardiopulmonary abnormality. Reading Location: [id number] Assessment & Plan Assessment/Plan (1) Chest pressure: (2) Elevated troponin: (3) Hypertensive emergency: (4) Chronic diastolic CHF (congestive heart failure): PLAN: Plan 1. Chest Pain with elevated initial troponin T of 95 ng/L - Admit to PCU. Continue IV heparin begun in the ER and resume baby aspirin daily. Give SL NTG as needed for recurrent angina. Check echocardiogram to evaluate LVEF. Give acetaminophen prn for [id number] (level 1-5/10) pain or fever. Give morphine IV prn for severe (level 6-10/10) pain. Finally, we will consult [facility] see this patient on rounds in the a.m. for further recommendations regarding possible LHC with help appreciated in advance. 2. Elevated blood pressure of 190/83 mmHg noted shortly after admission consistent with Hypertensive Emergency likely causing #1 - Maintain home regimen plus give prn IV hydralazine for systolic blood pressure > 160 mmHg. 3. Chronic diastolic CHF; LVEF 65% and stage I diastolic dysfunction (2019) followed by cable installer repairer helper at [facility] - Stable with no evidence of acute volume overload at this time. New echocardiogram ordered for #1. 4. Hypothyroidism; on levothyroxine - Resume levothyroxine and check TSH. 5. Former tobacco abuse - Noted. 6. Neuropathy; on gabapentin - Continue gabapentin as before. 7. History of Right breast cancer; s/p lumpectomy with radiation - Noted. 8. History of microscopic colitis - Noted. 9. OA - Give acetaminophen prn as outlined in #1. 10. DVT prophylaxis - Patient already on IV heparin for #1. Total time: Approximately (but not less than) 55 minutes. Charges/Coding Visit Charges OBSV E&M: 95250 Observ/hosp same date L2
--- OUTSIDE RECORDS SUMMARY | 2025-04-09 23:42 | XMS RPT_ITS | CCD ---
Author Organization [facility] Care Team Providers Care Environmental Technician Name Role Phone JAMAL, SCOTTY E Unavailable Unavailable ITIN, LIU Unavailable Unavailable JAMAL, SCOTTY E Unavailable Unavailable SALEMANUEL QUANBETH M Unavailable Unavailable JAMAL, SCOTTY Unavailable Unavailable SALAY, MELANIE Unavailable Unavailable JAMAL, SCOTTY Unavailable Unavailable SALAY, MELANIE Unavailable Unavailable JAMAL, SCOTTY Unavailable Unavailable ITIN, LIU Unavailable Unavailable SALAY, MELANIE Unavailable Unavailable Susannah Clemente MD Primary Care Provider Erwin Alfred MD Unavailable [phone] Susannah Clemente MD Primary Care Provider [phone] Erwin Alfred MD Unavailable Susannah Clemente MD Primary Care Provider Erwin Alfred MD Unavailable [phone] Susannah Clemente MD Primary Care Provider Erwin Alfred MD Unavailable Susannah Clemente MD Primary Care Provider Ruby Hurst PA-C Unavailable SUSANNAH CLEMENTE Referring Unavailable SUSANNAH CLEMENTE Primary Care Unavailable MICHELLE CHOUDHARY Attending Unavailable SUSANNAH CLEMENTE Primary Care Unavailable SUSANNAH CLEMENTE Primary Care Unavailable ERWIN ROSALES Attending Unavailabl e SUSANNAH CLEMENTE Primary Care Unavailable SUSANNAH CLEMENTE Attending Unavailable SUSANNAH CLEMENTE Primary Care Unavailable SALAY, SUSANNAH M Referring Unavailable SALAY, SUSANNAH M Primary Care Unavailable MICHELE, SANJEEB Referring Unavailabl e SALAY, SUSANNAH M Primary Care Unavailable SALAY, SUSANANH M Primary Care Unavailable ABENA HAMMOND Attending Unavaila ble SALAY, SUSANNAH M Referring Unavailable SALAY, SUSANNAH M Primary Care Unavailable SALAY, SUSANNAH M Referring Unavailable SALAY, SUSANNAH M Primary Care Unavailable ABENA HAMMOND Attending Unavaila ble SALAY, SUSANNAH M Referring Unavailable SALAY, SUSANNAH M Primary Care Unavailable SALAY, SUSANNAH M Referring Unavailable SALAY, SUSANNAH M Primary Care Unavailable SALAY, SUSANNAH M Referring Unavailable SALAY, SUSANNAH M Primary Care Unavailable SALAY, SUSANNAH M Primary Care Unavailable ABENA HAMMOND Attending Unavaila ble SALAY, SUSANNAH Hunt Referring Unavailable SALAY, SUSANNAH M Primary Care Unavailable MICHELE, SANLAKISHAEB Attending Unavailabl e MICHELE, SANJEEB Referring Unavailabl e SALAY, SUSANNAH M Primary Care Unavailable SALAY, SUSANNAH M Attending Unavailable SALAY, SUSANNAH M Primary Care Unavailable Allergies Allergy Classification Reported Allergen(s) Allergy Type Date of Onset Reaction(s) Facility amLODIPine (1 source) amLODIPine Drug Allergy 03-01-20 20 Other: See Comments [facility] Work Phone: Angiotensin 2 Receptor Blockers (ARB) (1 source) Losartan Drug Allergy 11-28-19 20 Other: See Comments [facility] Anticholinergics (1 source) Scopolamine Drug Allergy 10-30-19 12 Mental Status Change [facility] Work Phone: Calcium Channel Blockers (1 source) Verapamil Drug Allergy 05-06-20 16 GI Upset [facility] empagliflozin (1 source) empagliflozin Drug Allergy 11-20-19 23 Diarrhea [facility] Work Phone: HMG-CoA Reductase Inhibitors (statins) (1 source) atorvastatin Drug Allergy 11-09-19 20 Myalgia [facility] hydrALAZINE (1 source) hydrALAZINE Drug Allergy 08-12-20 20 Intolerance [facility] Iron (1 source) Iron Drug Allergy 09-03-20 05 GI Upset [facility] Pentazocine (1 source) Pentazocine Drug Allergy 09-30-20 09 Mental Status Change [facility] Spironolactone (1 source) Spironolactone Drug Allergy 07-10-20 Intolerance [facility] (20 sources) iron; Translations: [IRON] Drug Allergy 09-03-20 05 GI Upset [facility] Other [facility] (20 sources) pentazocine; Translations: [PENTAZOCINE LACTATE] Drug Allergy 09-30-20 09 Mental Status Change [facility] (20 sources) scopolamine; Translations: [SCOPOLAMINE] Drug Allergy 10-30-19 12 Mental Status Change [facility] (20 sources) verapamil; Translations: [VERAPAMIL HCL] Drug Allergy 05-06-20 16 GI Upset [facility] (20 sources) amLODIPine; Translations: [AMLODIPINE] Drug Allergy 03-01-20 Other: See Comments [facility] Work Phone: (20 sources) atorvastatin; Translations: [ATORVASTATIN] Drug Allergy 11-09-19 Myalgia [facility] Work Phone: (20 sources) hydrALAZINE; Translations: [HYDRALAZINE] Drug Allergy 08-12-20 Intolerance [facility] (20 sources) Losartan; Translations: [LOSARTAN] Drug Allergy 11-28-19 Other: See Comments [facility] Work Phone: (20 sources) Spironolactone; Translations: [SPIRONOLACTONE] Drug Allergy 07-10-20 Intolerance [facility] Work Phone: (19 sources) Thiazides; Translations: [THIAZIDES] Drug Intolerance 12-15-19 Contraindicati on-Medical Surgical [facility] Work Phone: (20 sources) Thiazides Drug Intolerance 12-15-19 Contraindicati on-Medical Surgical [facility] Work Phone: (20 sources) empagliflozin; Translations: [EMPAGLIFLOZIN] Drug Allergy 11-20-19 Diarrhea [facility] Work Phone: (1 source) Pentazocine Drug Allergy 11-06-19 24 Other [facility] (20 sources) Angiotensin II receptor antagonist; Translations: [ARB-ANGIOTENSIN RECEPTOR ANTAGONIST] Propensity to adverse reactions to drug 11-16-19 24 Contraindicati on-Medical Surgical [facility] Work Phone: Medications Current Medications Medication Drug Class(es) Dates Sig (Normalized) Sig (Original) acetaminophen 500 mg oral tablet (1 source) Start: 01-21-2018 take 1000 mg by mouth every eight hours Acetaminophen Active 1000 MG PO EVERY 8 HOURS January 20, 2018 11:00pm amLODIPine 5 mg oral tablet (2 sources) Dihydropyridine Calcium Channel Cecilia Start: 10-18-2019 take 5 mg by mouth once daily Amlodipine Active 5 MG PO DAILY October 18, 2019 12:00am Start: 01-28-2018 End: 02-02-2018 take 5 mg by mouth once daily Amlodipine Discontinued 5 MG PO DAILY January 27, 2018 11:00pm February 02, 2018 1:18pm budesonide 3 mg delayed release oral capsule (2 sources) Corticosteroid Start: 10-16-2019 End: 10-18-2019 take 1 capsule by mouth three times daily Budesonide Active 1 CAP PO THREE TIMES A DAY 0 October 18, 2019 12:49pm cephalexin 500 mg oral capsule (7 sources) Cephalosporin Antibacterial Start: 07-17-2024 End: 07-24-2024 take 1 capsule by mouth twice daily cephALEXin (KEFLEX) 500 mg capsule Indications: Urgency of urination Take 1 capsule by mouth two times a day for 7 days. 14 capsule 07/17/2024 07/24/2024 Active Start: 06-26-2024 End: 07-03-2024 take 1 capsule by mouth twice daily cephALEXin (KEFLEX) 500 mg capsule Take 1 capsule by mouth two times a day for 7 days. 14 capsule 06/26/2024 07/03/2024 Active Start: 10-05-2022 End: 10-12-2022 take 1 capsule by mouth twice daily cephALEXin (KEFLEX) 500 mg capsule Indications: Pain with urination Take 1 capsule by mouth twice daily for 7 days. 14 capsule 0 10/05/2022 10/12/2022 Comment on above: Take 1 capsule by [facility] twice daily for 7 days. cholecalciferol 0.025 mg oral capsule (20 sources) Vitamin D Start: take 25 ug by mouth once daily Cholecalciferol (Vitamin D3) Active 25 MCG PO DAILY October 16, 2019 12:00am End: 06-26-2024 take 1 capsule by mouth once daily Cholecalciferol, Vitamin D3, 50 mcg (2,000 unit) cap Take 1 capsule by mouth once daily. 06/26/2024 Discontinued (Course of therapy completed) Comment on above: Take 1 capsule by [facility] once daily. 168 hr cloNIDine 0.35721 mg/hr transdermal system (20 sources) Central alpha-2 Adrenergic Agonist Start: 01-08-2025 End: 03-27-2025 cloNIDine TTS (CATAPRES-TTS) 0.1 mg/24 hr Indications: Essential hypertension Apply 1 patch as directed one time a week. 12 patch 2 03/27/2025 Active Start: 11-06-2023 Clonidine Acti ve November 06, 2023 12:00am Start: 11-11-2021 End: 01-05-2025 cloNIDine TTS (CATAPRES-TTS) 0.1 mg/24 hr Indications: Essential hypertension Apply 1 Patch as directed one time a week. 12 Patch 3 03/28/2024 08/29/2024 Discontinued Start: 12-06-2020 End: 02-25-2021 cloNIDine TTS (CATAPRES-TTS) 0.1 mg/24 hr Indications: Essential hypertension Apply 1 Patch as directed one time a week. 12 Patch 1 12/06/2020 02/25/2021 Discontinued Start: 07-16-2020 End: 08-07-2020 cloNIDine TTS (CATAPRES-TTS) 0.1 mg/24 hr Indications: Essential hypertension Apply 1 Patch as directed one time a week. 4 Patch 1 07/16/2020 08/07/2020 Discontinued Comment on above: Apply 1 Patch as dir ected one time a week. dapagliflozin 5 mg oral tablet (20 sources) Sodium-Glucose Cotransporter 2 Inhibitor Start: 024 End: 025 take 1 tablet by mouth once daily at breakfast dapagliflozin propanediol (FARXIGA) 5 mg tablet Take 1 tablet by mouth daily with breakfast. 90 tablet 3 04/03/2025 Active Start: 09-30-2023 End: 07-03-2024 take 1 tablet by mouth once daily at breakfast dapagliflozin propanediol (FARXIGA) 10 mg tablet Take 1 tablet by mouth daily with breakfast. 30 tablet 3 01/17/2024 07/03/2024 Discontinued Comment on above: Take 1 tablet by rosalinda th daily with breakfast. doxycycline monohydrate 100 mg oral tablet (2 sources) Tetracycline-class Drug Start: End: take 1 tablet by mouth twice daily doxycycline monohydrate 100 mg tablet Take 1 tablet by mouth two times a day for 7 days. 14 tablet 06/11/2024 06/18/2024 Active Start: 01-30-2023 End: 02-09-2023 take 1 tablet by mouth twice daily doxycycline (VIBRA-TABS) 100 mg tablet Take 1 tablet by mouth twice daily for 10 days. 20 tablet 0 01/30/2023 02/09/2023 Active Comment on above: Take 1 tablet by rosalinda th twice daily for 10 days. furosemide 20 mg oral tablet (20 sources) Loop Diuretic Start: 11-06-2023 Furosemide Active MG November 06, 2023 12:00am Start: 11-12-2021 End: 01-12-2023 take 1 tablet by mouth once furosemide (LASIX) 20 mg tablet Take 1 tablet by mouth every Wednesday,Wednesday,Wednesday (0600). 36 tablet 3 01/13/2023 Active Start: 08-16-2020 End: 02-13-2021 take 1 tablet by mouth once furosemide (LASIX) 20 mg tablet Take 1 tablet by mouth every Wednesday,Wednesday,Wednesday (0600). 30 tablet 1 08/16/2020 02/13/2021 Discontinued Comment on above: Take 1 tablet by rosalinda th every Wednesday,Wednesday,Wednesday (0600). gabapentin 100 mg oral capsule (1 source) Anti-epileptic Agent Sta rt: 9 take 200 mg by mouth at bedtime Gabapentin Active 200 MG PO AT BEDTIME October 16, 2019 12:00am hydroCHLOROthiazide 25 mg oral tablet (3 sources) Thiazide Diuretic Sta rt: 9 take 12.5 mg by mouth once daily Hydrochlorothiazide Active 12.5 MG PO DAILY October 16, 2019 12:31am Start: 01-18-2018 End: 10-16-2019 take 25 mg by mouth once daily Hydrochlorothiazide Discontinued 25 MG PO DAILY January 28, 2018 3:43pm October 16, 2019 12:31am indapamide 2.5 mg oral tablet (20 sources) Thiazide-like Diuretic Start: 04-03-2025 take 1 tablet by mouth once daily indapamide (LOZOL) 2.5 mg tablet Take 1 tablet by mouth once daily. 90 tablet 3 04/03/2025 Active Start: 09-02-2022 End: 04-03-2025 take 1 tablet by mouth once daily indapamide (LOZOL) 1.25 mg tablet Take 1 tablet by mouth once daily. 90 tablet 3 08/30/2024 04/03/2025 Discontinued Comment on above: Take 1 tablet by rosalinda th once daily. iv contrast (will be provided with radiology test) (2 sources) Start: 03-27-2025 End: 03-28-2025 iv contrast (will be provided with radiology test) Indications: Epigastric pain MRI PANC/LEYDA Inject, intravenously, once for 1 dose. No IV access, insert saline lock prior to the beginning of sedation, infusion, injection of imaging exam. Discontinue saline lock post exam. If Pt. has a central line or IVAD, may access for administration according to line specific nursing protocol. Once exam is complete flush line and de-access according to line specific nursing protocol in the MR contrast administration guidelines link. 1 each 03/27/2025 03/28/2025 Active Start: 08-04-2023 End: 08-05-2023 iv contrast (will be provide d with radiology test) MRI PANC/LEYDA Inject, intravenously, once for 1 dose. No IV access, insert saline lock prior to the beginning of sedation, infusion, injection of imaging exam. Discontinue saline lock post exam. If Pt. has a central line or IVAD, may access for administration according to line specific nursing protocol. Once exam is complete flush line and de-access according to line specific nursing protocol in the MR contrast administration guidelines link. 1 Each 0 08/04/2023 08/05/2023 Active Comment on above: MRI PANC/LEYDA Inject, intravenously, once for 1 dose. No IV access, insert saline lock prior to the beginning of sedation, infusion, injection of imaging exam. Discontinue saline lock post exam. If Pt. has a central line or IVAD, may access for administration according to line specific nursing protocol. Once exam is complete flush line and de-access according to line specific nursing protocol in the MR contrast administration guidelines link. ketoconazole 20 mg/ml medicated shampoo (20 sources) Azole Antifungal Start: 11-01-19 End: 07-26-20 ketoconazole (NIZORAL) 2 % shampoo Indications: Telogen effluvium , Seborrheic dermatitis Use to wash face and scalp two times a week. Lather and leave in for 3-5 minutes before rinsing. 240 mL 11 07/26/2024 Active Comment on above: Use to wash face and scalp two times a week. Lather and leave in for 3-5 minutes before rinsing. labetalol hydrochloride 200 mg oral tablet (20 sources) beta-Adrenergic Cecilia Start: 11-16-19 End: 03-27-20 take 1 tablet by mouth twice daily labetalol (TRANDATE) 200 mg tablet Indications: Essential hypertension Take 1 tablet by mouth two times a day. 180 tablet 2 03/27/2025 Active Start: 11-11-2021 End: 10-07-2023 take 1 tablet by mouth twice daily labetalol (TRANDATE) 200 mg tablet Indications: Essential hypertension Take 1 tablet by mouth twice daily. 180 tablet 3 10/01/2022 10/07/2023 Discontinued Start: 09-19-2020 End: 04-11-2021 take 1 tablet by mouth twice daily labetalol (TRANDATE) 200 mg tablet Indications: Essential hypertension Take 1 tablet by mouth twice daily. 180 tablet 3 09/19/2020 04/11/2021 Discontinued (Adjust Sig - Block E-Cancel) Start: 02-15-2020 End: 08-12-2020 take 1 tablet by mouth three times daily labetalol (TRANDATE) 100 mg tablet Indications: Essential hypertension Take 1 tablet by mouth three times daily. 270 tablet 1 02/15/2020 08/12/2020 Discontinued Start: 10-16-2019 take 100 mg by mouth twice daily Labetalol Active 100 MG PO TWICE A DAY October 16, 2019 12:31am Start: 02-02-2018 End: 10-16-2019 take 200 mg by mouth twice daily Labetalol Discontinued 200 MG PO TWICE A DAY 60 February 01, 2018 11:00pm October 16, 2019 12:31am Comment on above: Take 1 tablet by rosalinda twice daily. Take 1 tablet by rosalinda th two times a day. levothyroxine sodium 0.088 mg oral tablet (20 sources) l-Thyroxine Start: End: take 1 tablet by mouth once daily levothyroxine (SYNTHROID) 88 mcg tablet Indications: Hypothyroidism, unspecified type Take 1 tablet by mouth once daily. 90 tablet 1 02/08/2025 08/07/2025 Active Start: 05-15-2024 End: 11-11-2024 take 1 tablet by mouth once daily levothyroxine (SYNTHROID) 88 mcg tablet Indications: Hypothyroidism, unspecified type Take 1 tablet by mouth once daily. 90 tablet 1 05/15/2024 Active Start: 01-18-2018 End: 05-14-2024 take 1 tablet by mouth once daily SYNTHROID 88 mcg tablet Indications: Acquired hypothyroidism Take 1 tablet by mouth once daily. 90 tablet 3 11/27/2019 04/23/2021 Discontinued Comment on above: Take 1 tablet by rosalinda once daily. melatonin 5 mg oral capsule (20 sources) Start: 10-16-2019 take 5 mg by mouth at bedtime Melatonin Active 5 MG PO AT BEDTIME October 16, 2019 12:00am Comment on above: Take 1 capsule by mo [facility] at bedtime as needed. minoxidil 2.5 mg oral tablet (20 sources) Arteriolar Vasodilator Start: 07-24-2022 End: 01-09-2025 minoxidil (LONITEN) 2.5 mg tablet Indications: Telogen effluvium 1 TABLET DAILY 90 tablet 3 01/09/2025 Active Start: 07-22-2022 minoxidil (ADDIE ITEN) 2.5 mg tablet Indications: Telogen effluvium 1/2 tablet a day 45 tablet 3 07/22/2022 Active Start: 08-20-2021 End: 07-22-2022 minoxidil (LONITEN) 2.5 mg t ablet Start: 09-26-2020 End: 03-18-2021 minoxidil (LONITEN) 2.5 mg t ablet 1 tablet a day 90 tablet 3 09/26/2020 01/02/2021 Discontinued Start: 10-16-2019 End: 10-18-2019 Minoxidil Discontinued 0.25 MG DAILY October 16, 2019 12:00am October 18, 2019 12:48pm Comment on above: 1/2 tablet a day 1 tablet a day 1 TABLET DAILY MULTIVITAMIN ORAL (20 sources) take 1 tablet by mouth once daily MULTIVITAMIN ORAL Take 1 tablet by mouth once daily. Active take 1 tablet by mouth once saumya y MULTIVITAMIN ORAL Take 1 tablet by mouth once daily. 0 Active Comment on above: Take 1 tablet by rosalinda th once daily. nitroglycerin 0.4 mg sublingual tablet (4 sources) Nitrate Vasodilator Start: 03-27-20 nitroglycerin sublingual (NITROQUICK) 0.4 mg SL tablet Indications: Atherosclerosis of 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 Dissolve 1 tablet under the tongue as needed for chest pain. If no pain relief call 911. 25 tablet 1 03/27/2025 Active valsartan 160 mg oral tablet (3 sources) Angiotensin 2 Receptor Cecilia Start: 10-16-20 take 160 mg by mouth once daily Valsartan Active 160 MG PO DAILY October 16, 2019 12:31am Start: 01-28-2018 End: 10-16-2019 take 160 mg by mouth twice daily Valsartan Discontinued 160 MG PO TWICE A DAY 60 January 27, 2018 11:00pm October 16, 2019 12:31am Start: 01-18-2018 End: 01-28-2018 take 80 mg by mouth once daily Valsartan Discontinued 80 MG PO DAILY January 17, 2018 11:00pm January 28, 2018 3:43pm Completed/Discontinued Medications Medication Drug Class(es) Dates Sig (Normalized) Sig (Original) acetaminophen 325 mg / HYDROcodone bitartrate 5 mg oral tablet (1 source) Opioid Agonist Start: 01-11-2018 End: 01-14-2018 take 1 tablet by mouth every six hours as needed Hydrocodone-Acetam inophen Discontinued 1 TABLET PO EVERY 6 HOURS NEEDED 8 2 January 11, 2018 3:15pm January 14, 2018 3:14pm aspirin 81 mg delayed release oral tablet (14 sources) Platelet Aggregation Inhibitor, Nonsteroidal Anti-inflammatory Drug Start: 10-26-2019 End: 05-14-2022 take 1 tablet by mouth once daily aspirin, enteric coated (ECOTRIN LOW STRENGTH) 81 mg EC tablet Indications: Iron deficiency anemia secondary to inadequate dietary iron intake Take 1 tablet by mouth once daily. 10/26/2019 05/14/2022 Discontinued Start: 01-18-2018 take 81 mg by mouth once daily Aspirin Active 81 MG PO DAILY@0800 January 17, 2018 11:00pm Comment on above: Take 1 tablet by rosalinda once daily. atenolol 25 mg oral tablet (1 source) beta-Adrenergic Cecilia Start: 01-22-20 End: 01-29-20 take 25 mg by mouth at bedtime Atenolol Discontinued 25 MG PO AT BEDTIME January 20, 2018 11:00pm January 28, 2018 3:43pm betamethasone 3 mg/ml / betamethasone acetate 3 mg/ml injectable suspension (1 source) Corticosteroid Start: 11-24-19 End: 11-24-19 betamethasone acetate-betamethason e sodium phosphate 3 mg injection (CELESTONE) Start: 11-24-2022 End: 11-24-2022 betamethasone acetate-betame thasone sodium phosphate 3 mg injection (CELESTONE) Biotin (20 sources) Start: 10-16-2019 End: 10-18-2019 Biotin Discontinued 1 TABLET DAILY October 16, 2019 12:00am October 18, 2019 12:48pm take 1 tablet by mouth once saumya y biotin 5 mg tab Take 5 mg by mouth once daily. Active Comment on above: Take 5 mg by mouth o nce daily. canagliflozin 100 mg oral tablet (12 sources) Sodium-Glucose Cotransporter 2 Inhibitor Start: 10-01-2022 End: 11-20-2022 canagliflozin (INVOKANA) 100 mg tab Indications: 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 disease, or chronic kidney disease (HCC) , Stage 3 chronic kidney disease, unspecified whether stage 3a or 3b CKD (HCC) , Anemia due to stage 3b chronic kidney disease (HCC) Take 1 tablet by mouth daily with breakfast. 30 tablet 1 10/01/2022 11/20/2022 Discontinued Start: 07-16-2022 End: 09-02-2022 canagliflozin (INVOKANA) 100 mg tab Indications: 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 disease, or chronic kidney disease (HCC) Take 1 tablet by mouth daily with breakfast. 30 tablet 1 07/16/2022 09/02/2022 Discontinued Comment on above: Take 1 tablet by rosalinda th daily with breakfast. colchicine 0.6 mg oral tablet (1 source) Start: 06-25-20 End: 09-19-20 take 0.5 tablet by mouth once daily colchicine 0.6 mg tablet TAKE 1/2 TABLET BY MOUTH ONCE DAILY 15 tablet 2 06/25/2020 09/19/2020 Discontinued cyclobenzaprine hydrochloride 5 mg oral tablet (15 sources) Muscle Relaxant Start: 07-05-20 End: 09-30-20 take 1 tablet by mouth every twenty-four hours as needed cyclobenzaprine (FLEXERIL) 5 mg tablet Take 1 tablet by mouth at bedtime as needed for muscle spasm. 15 tablet 1 07/05/2023 09/30/2023 Discontinued Start: 03-12-2023 End: 03-27-2023 take 1 tablet by mouth at bedtime as needed cyclobenzaprine (FLEXERIL) 5 mg tablet Indications: Thoracic radiculitis Take 1 tablet by mouth at bedtime as needed for up to 15 days. 30 tablet 0 03/12/2023 03/27/2023 Active Comment on above: Take 1 tablet by rosalinda th at bedtime as needed for up to 15 days. Take 1 tablet by rosalinda th at bedtime as needed for muscle spasm. empagliflozin 10 mg oral tablet (4 sources) Sodium-Glucose Cotransporter 2 Inhibitor Start: End: take 1 tablet by mouth once daily at breakfast empagliflozin (JARDIANCE) 10 mg tablet Take 1 tablet by mouth daily with breakfast. 90 tablet 3 05/18/2022 07/16/2022 Discontinued Comment on above: Take 1 tablet by rosalinda th daily with breakfast. famotidine 20 mg oral tablet (20 sources) Histamine-2 Receptor Antagonist Start: 024 End: take 1 tablet by mouth once daily as needed famotidine (PEPCID) 20 mg tablet Indications: Epigastric abdominal tenderness without rebound tenderness Take 1 tablet by mouth once daily as needed. 90 tablet 2 03/28/2024 12/23/2024 Start: 03-23-2023 End: 06-21-2023 take 1 tablet by mouth once daily famotidine (PEPCID) 20 mg tablet Indications: Epigastric abdominal tenderness without rebound tenderness Take 1 tablet by mouth once daily. 90 tablet 1 03/23/2023 06/21/2023 Comment on above: Take 1 tablet by rosalinda th once daily. Take 1 tablet by rosalinda th once daily as needed. 24 hr ferrous sulfate 142 mg extended release oral tablet (20 sources) Start: 1 End: 4 take 1 tablet by mouth two times weekly Ferrous Sulfate (SLOW FE) 142 mg (45 mg iron) TbER Take 1 tablet by mouth two times a week. 02/25/2021 06/26/2024 Discontinued (Course of therapy completed) Comment on above: Take 1 tablet by rosalinda two times a week. Food Supplemt, Lactose-Reduced (Ensure Enlive) 120 ML Liquid (1 source) Start: 8 End: 8 take 1 mL by mouth four times daily Food Supplemt, Lactose-Reduced (Ensure Enlive) 120 ML Liquid Discontinued 120 ML PO 4 TIMES DAILY January 20, 2018 11:00pm January 28, 2018 3:43pm Gatorade Sports Drink (1 source) Start: 0 End: 0 Gatorade Sports Drink Indications: Colon cancer screening Use as directed for Miralax / Gatorade Bowel Prep Kit 64 oz 06/21/2020 07/30/2020 Discontinued (Discontinued by Patient) hydrALAZINE hydrochloride 50 mg oral tablet (1 source) Arteriolar Vasodilator Start: 8 End: 8 take 50 mg by mouth three times daily Hydralazine Discontinued 50 MG PO THREE TIMES A DAY 90 January 27, 2018 11:00pm February 02, 2018 1:18pm 10 ml lidocaine hydrochloride 10 mg/ml injection (1 source) Antiarrhythmic, Amide Local Anesthetic Start: 3 End: 3 lidocaine (PF) 10 mg/mL (1 %) 0.5 mL injection (XYLOCAINE) Start: 11-24-2022 End: 11-24-2022 lidocaine (PF) 10 mg/mL (1 % ) 0.5 mL injection (XYLOCAINE) Lmefol [id number] (CEREFOLIN NAC, ALGAL OIL,) 6 mg-600 mg- 2 mg-90.314 mg tab (19 sources) Start: 02-18-2021 End: 09-02-2022 take 1 tablet by mouth once daily Lmefol [id number]-algal (CEREFOLIN NAC, ALGAL OIL,) 6 mg-600 mg- 2 mg-90.314 mg tab Indications: 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 90 tablet 4 02/18/2021 09/02/2022 Discontinued Start: 02-18-2021 take 1 tablet by rosalinda once daily Lmefol [id number]-algal (CEREFOLIN NAC, ALGAL OIL,) 6 mg-600 mg- 2 mg-90.314 mg tab Indications: 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 90 tablet 4 02/18/2021 Active Comment on above: Take 1 tablet by rosalinda once daily. ondansetron 4 mg disintegrating oral tablet (20 sources) Serotonin-3 Receptor Antagonist Start: 11-06-19 End: 07-03-20 24 take 1 tablet by mouth every eight hours as needed for nausea ondansetron orally disintegrating (ZOFRAN ODT) 4 mg disintegrating tablet dissolve 1 tablet in mouth every 8 hours as needed for nausea 30 tablet 05/15/2024 07/03/2024 Discontinued Start: 07-16-2020 End: 09-19-2020 take 1 tablet by mouth every eight hours as needed for nausea and nausea ondansetron (ZOFRAN) 4 mg tablet Indications: Nausea Take 1 tablet by mouth every 8 hours as needed. 30 tablet 1 07/16/2020 09/19/2020 Discontinued Start: 01-28-2018 End: 02-02-2018 take 4 mg by mouth every four hours as needed Ondansetron Discontinued 4 MG PO EVERY 4 HOURS NEEDED January 27, 2018 11:00pm February 02, 2018 1:17pm Comment on above: dissolve 1 tablet in mouth every 8 hours as needed for nausea pantoprazole 20 mg delayed release oral tablet (1 source) Proton Pump Inhibitor Start: 0 End: 0 take 1 tablet by mouth once daily before breakfast pantoprazole DR (PROTONIX) 20 mg tablet Take 1 tablet by mouth daily before breakfast. Take on empty stomach, 1/2 hr before meal. 30 tablet 04/24/2020 09/19/2020 Discontinued perflutren lipid microspheres 1.3 mL in NaCl (PF) 0.9% 10 mL injection (DEFINITY) (20 sources) Start: 3 End: 4 perflutren lipid microspheres 1.3 mL in NaCl (PF) 0.9% 10 mL injection (DEFINITY) polyethylene glycol 3350 02780 mg powder for oral solution (1 source) Osmotic Laxative Start: 0 End: 0 polyethylene glycol 3350 (MIRALAX, GLYCOLAX) 17 gram/dose powder Indications: Colon cancer screening Use as directed for Miralax / Gatorade Bowel Prep Kit 238 g 06/21/2020 07/30/2020 Discontinued (Discontinued by Patient) polyethylene glycol 3350 250191 mg / potassium chloride 2970 mg / sodium bicarbonate 6740 mg / sodium chloride 5860 mg / sodium sulfate 68203 mg powder for oral solution (1 source) Osmotic Laxative Start: 0 End: 0 peg 3350-Electrolytes (GOLYTELY) 236-22.74-6.74 -5.86 gram suspension Refer to printed patient instructions that will be mailed to you. 4 L 01/19/2020 09/19/2020 Discontinued predniSONE 10 mg oral tablet (20 sources) Start: 4 End: 4 predniSONE (DELTASONE) 10 mg tablet Take 4 tabs daily for 3 days, then 2 tabs daily for 3 days, then 1 tab daily for 3 days with food. 21 tablet 06/11/2024 07/03/2024 Discontinued Start: 03-04-2023 End: 09-30-2023 predniSONE (DELTASONE) 10 mg tablet Take 4 tabs daily x 3 days, then 3 tabs x 3 days, 2 tabs x 3 days, then 1 tab x3 days with food. 30 tablet 0 03/04/2023 09/30/2023 Discontinued Start: 01-30-2023 predniSONE (DE LTASONE) 10 mg tablet Take 4 tabs daily for 3 days, then 2 tabs daily for 3 days, then 1 tab daily for 3 days with food. 21 tablet 0 01/30/2023 Active Comment on above: Take 4 tabs daily fo r 3 days, then 2 tabs daily for 3 days, then 1 tab daily for 3 days with food. Take 4 tabs daily x 3 days, then 3 tabs x 3 days, 2 tabs x 3 days, then 1 tab x3 days with food. promethazine hydrochloride 12.5 mg oral tablet (1 source) Phenothiazine Start: 06-19-20 End: 07-30-20 take 1 tablet by mouth every six hours as needed for nausea and nausea promethazine (PHENERGAN) 12.5 mg tablet Indications: Nausea Take 1 tablet by mouth every 6 hours as needed for Nausea/Vomiting. 30 tablet 06/19/2020 07/30/2020 Discontinued (Discontinued by Patient) 125 ml sodium chloride 9 mg/ml prefilled syringe (20 sources) Start: 11-20-19 End: 02-19-20 sodium chloride 0.9 % (flush) 10 mL (BD POSIFLUSH) temazepam 7.5 mg oral capsule (3 sources) Benzodiazepine Start: 03-08-20 End: 04-07-20 take 1 capsule by mouth every 30 days at bedtime as needed temazepam (RESTORIL) 7.5 mg capsule Indications: Acute right-sided thoracic back pain Take 1 capsule by mouth at bedtime as needed for up to 30 days. Do not take with tramadol. 12 capsule 0 03/08/2023 04/07/2023 Comment on above: Take 1 capsule by [facility] at bedtime as needed for up to 30 days. Do not take with tramadol. traMADol hydrochloride 50 mg oral tablet (2 sources) Opioid Agonist Start: 03-08-20 End: 03-23-20 take 1 tablet by mouth twice daily as needed for pain traMADol (ULTRAM) 50 mg tablet Indications: Acute right-sided thoracic back pain Take 1 tablet by mouth twice daily as needed for pain for up to 15 days. Do not take with temazepam. 30 tablet 0 03/08/2023 03/23/2023 Start: 01-21-2018 End: 01-28-2018 take 100 mg by mouth every six hours as needed Tramadol Discontinued 100 MG PO EVERY 6 HOURS NEEDED 24 January 20, 2018 11:00pm January 28, 2018 3:43pm Comment on above: Take 1 tablet by rosalinda th twice daily as needed for pain for up to 15 days. Do not take with temazepam. Problems Active Problems Problem Classification Problem Date Documented Da te Episodic/Chronic Abdominal pain (10 sources) Tenderness of epigastrium; Translations: [Epigastric abdominal tenderness] Onset: 5 Episodic Adjustment disorders (3 sources) Reactive depression (situational); Translations: [Adjustment disorder with depressed mood] Onset: 4 01-04-2024 Chronic Cardiac dysrhythmias (20 sources) Supraventricular tachycardia; Translations: [Supraventricular tachycardia] Onset: 7 08-13-2020 Chronic Chronic kidney disease (20 sources) Chronic kidney disease stage 3; Translations: [CKD (chronic kidney disease) stage 3, GFR 30-59 ml/min] Onset: 0 Resolved: 3 09-19-2020 Chronic Chronic kidney disease (1 source) Chronic kidney disease; Translations: [Stage 3b chronic kidney disease (HCC)] Onset: 0 Complications of surgical procedures or medical care (20 sources) Menopausal symptom; 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 Congestive heart failure; nonhypertensive (20 sources) Chronic diastolic heart failure; Translations: [Chronic diastolic (congestive) heart failure] Onset: 0 11-26-2021 Chronic Coronary atherosclerosis and other heart disease (20 sources) Coronary atherosclerosis; Translations: [Atherosclerotic heart disease of eek coronary artery without angina pectoris] Onset: 3 11-26-2021 Chronic Deficiency and other anemia (20 sources) Anemia co-occurrent and due to chronic kidney disease stage 3; Translations: [Anemia due to stage 3 chronic kidney disease] Onset: 0 04-26-2020 Chronic Deficiency and other anemia (2 sources) Anemia in chronic kidney disease; Translations: [Anemia due to stage 3b chronic kidney disease (HCC)] Onset: 4 Chronic Deficiency and other anemia (2 sources) Deficiency and other anemia; Translations: [Anemia due to stage 3b chronic kidney disease (HCC)] Onset: 4 Disorders of lipid metabolism (1 source) Hyperlipidemia; Translations: [Hyperlipidemia, unspecified] 02-02-2018 Chronic Essential hypertension (20 sources) Essential (primary) hypertension; Translations: [Essential hypertension] Onset: 7 04-03-2021 Chronic Fracture of neck of femur (hip) (1 source) Fracture of bone of hip region; Translations: [Stress fracture, right femur, initial encounter for fracture] 10-16-2019 Episodic Genitourinary symptoms and ill-defined conditions (6 sources) Retention of urine; Translations: [Retention of urine, unspecified] Episodic Hypertension with complications and secondary hypertension (20 sources) Renovascular hypertension; Translations: [Hypertensive heart AND renal disease] Onset: 3 Resolved: 0 11-26-2021 Chronic Menopausal disorders (20 sources) Atrophy of vagina; Translations: [Postmenopausal atrophic vaginitis] 09-10-2015 Chronic Nausea and vomiting (1 source) Nausea; Translations: [Nausea] 11-06-2023 Episodic Noninfectious gastroenteritis (20 sources) Collagenous colitis; Translations: [Collagenous colitis] Onset: 7 07-30-2017 Chronic Nonmalignant breast conditions (20 sources) Fibrocystic disease of breast; Translations: [Diffuse cystic mastopathy of unspecified breast] 04-10-2008 Chronic Nutritional deficiencies (20 sources) Vitamin D deficiency; Translations: [Vitamin D deficiency, unspecified] Onset: 7 Resolved: 8 10-13-2021 Chronic Osteoarthritis (20 sources) Osteoarthrosis of the carpometacarpal joint of the thumb; Translations: [Unilateral primary osteoarthritis of first carpometacarpal joint, left hand] Onset: 7 Resolved: 6 Chronic Other acquired deformities (2 sources) Thoracogenic scoliosis; 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, site unspecified] Chronic Other acquired deformities (20 sources) Other secondary scoliosis, site unspecified; Translations: [Disorder of bone and cartilage, unspecified] Onset: 3 08-06-2023 Chronic Other aftercare (9 sources) Patient encounter status; Translations: [Encounter for therapeutic drug level monitoring] Episodic Other and ill-defined cerebrovascular disease (20 sources) Small vessel cerebrovascular disease; Translations: [Other cerebrovascular disease] Onset: 0 10-26-2019 Chronic Other and ill-defined cerebrovascular disease (1 source) Other cerebrovascular disease; Translations: [Cerebral microvascular disease] Onset: 0 Chronic Other bone disease and musculoskeletal deformities (20 sources) Idiopathic scoliosis; Translations: [Other idiopathic scoliosis, site unspecified] Onset: 3 08-06-2023 Chronic Other connective tissue disease (1 source) Trigger thumb of left hand; Translations: [Trigger thumb, left thumb] Episodic Other ear and sense organ disorders (20 sources) Sensorineural hearing loss, bilateral; Translations: [Sensorineural hearing loss, bilateral] Onset: 1 01-15-2021 Chronic Other ear and sense organ disorders (3 sources) Decreased hearing ; Translations: [Unspecified hearing loss, bilateral] 07-05-2023 Chronic Other ear and sense organ disorders (1 source) Unspecified hearing loss, bilateral; Translations: [Decreased hearing of both ears] Onset: 5 Chronic Other gastrointestinal disorders (1 source) Difficulty swallowing pills; Translations: [Other specified symptoms and signs involving the digestive system and abdomen] Episodic Other lower respiratory disease (1 source) Rib pain; Translations: [Pleurodynia] Episodic Other lower respiratory disease (3 sources) Dyspnea on exertion; Translations: [Other forms of dyspnea] 01-15-2023 Episodic Other nervous system disorders (20 sources) Disorder of brain; Translations: [Encephalopathy, unspecified] Onset: 0 12-22-2019 Chronic Other non-traumatic joint disorders (1 source) Hip pain; Translations: [Pain in right hip] 02-02-2018 Episodic Other non-traumatic joint disorders (1 source) Pain of left wrist; Translations: [Pain in left wrist] 12-24-2020 Episodic Other screening for suspected conditions (not mental disorders or infectious disease) (20 sources) Inconclusive mammography finding; Translations: [Inconclusive mammogram] Onset: 8 Resolved: 8 Episodic Other upper respiratory disease (1 source) Allergic rhinitis; Translations: [Allergic rhinitis, unspecified] 02-02-2018 Chronic Other upper respiratory infections (1 source) Pharyngitis; Translations: [Acute pharyngitis, unspecified] Episodic Pancreatic disorders (not diabetes) (5 sources) Cyst of pancreas; Translations: [Cyst of pancreas] Onset: 5 01-29-2024 Episodic Retinal detachments; defects; vascular occlusion; and retinopathy (20 sources) Retinal vessel finding; Translations: [Changes in retinal vascular appearance, unspecified eye] Onset: 7 11-10-2016 Chronic Skin and subcutaneous tissue infections (1 source) Cellulitis of left upper limb; Translations: [Cellulitis of left upper limb] 06-11-2024 Episodic Spondylosis; intervertebral disc disorders; other back problems (20 sources) Cervical spondylosis without myelopathy; Translations: [Spondylosis without myelopathy or radiculopathy, cervical region] Onset: 7 08-26-2007 Chronic Thyroid disorders (20 sources) Hypothyroidism; Translations: [Hypothyroidism, unspecified] Onset: 7 Resolved: 6 11-26-2021 Chronic Unclassified (1 source) Unknown / UNK(Unknown) Onset: 7 Unclassified (1 source) NO SHOW Urinary tract infections (1 source) Acute cystitis; Translations: [Acute cystitis without hematuria] 07-03-2024 Episodic Viral infection (2 sources) Verruca vulgaris; Translations: [Viral wart, unspecified] Episodic Past or Other Problems Problem Classification Problem Date Documented Date Episodic/Chronic Acute and unspecified renal failure (20 sources) Acute renal failure syndrome; Translations: [Acute kidney failure, unspecified] Onset: 0 Resolved: 0 12-15-2019 Episodic Allergic reactions (2 sources) Solar degeneration; Translations: [Other skin changes due to chronic exposure to nonionizing radiation] Onset: 4 07-26-2024 Episodic Blindness and vision defects (20 sources) Disorder of refraction AND/OR accommodation; Translations: [Other disorders of refraction] Onset: 7 Resolved: 6 01-09-2016 Episodic Calculus of urinary tract (20 sources) Urolithiasis ; Translations: [Urinary calculus, unspecified] Onset: 7 11-10-2016 Episodic Cancer of breast (20 sources) Malignant tumor of breast ; Translations: [Malignant neoplasm of unspecified site of unspecified female breast] Onset: 1 Resolved: 3 11-26-2021 Chronic Cancer of breast (20 sources) History of malignant neoplasm of breast; Translations: [Personal history of malignant neoplasm of breast] Onset: 2 08-13-2020 Episodic Cardiac dysrhythmias (20 sources) Palpitations; Translations: [Palpitations] Onset: 3 Resolved: 8 Episodic Deficiency and other anemia (20 sources) Iron deficiency anemia; Translations: [Iron deficiency anemia, unspecified] Onset: 0 12-15-2019 Episodic Deficiency and other anemia (20 sources) Anemia; Translations: [Anemia, unspecified] Onset: 5 Resolved: 8 Episodic Fluid and electrolyte disorders (20 sources) Hyperkalemia; Translations: [Hyperkalemia] Onset: 0 Resolved: 0 12-15-2019 Episodic Headache; including migraine (20 sources) Headache; Translations: [Headache] Onset: 0 Resolved: 0 10-16-2019 Episodic Neoplasms of unspecified nature or uncertain behavior (20 sources) Benign neoplasm of pancreas; Translations: [Neoplasm of unspecified behavior of digestive system] Onset: 4 11-16-2023 Episodic Noninfectious gastroenteritis (20 sources) Colitis; Translations: [Noninfective gastroenteritis and colitis, unspecified] Onset: 4 Resolved: 7 07-30-2017 Episodic Nonmalignant breast conditions (20 sources) Mammographic microcalcification of breast; Translations: [Mammographic microcalcification found on diagnostic imaging of breast] Onset: 8 05-09-2008 Episodic Nonspecific chest pain (20 sources) Chest pain, unspecified; Translations: [Chest pain] Onset: 7 Resolved: 0 11-06-2023 Episodic Other connective tissue disease (20 sources) Pain in left thumb; Translations: [Pain in left finger(s)] Onset: 2 Resolved: 3 Episodic Other connective tissue disease (20 sources) H/O: arthritis; Translations: [Personal history of other diseases of the musculoskeletal system and connective tissue] Onset: 0 05-02-2020 Episodic Other connective tissue disease (20 sources) Trochanteric bursitis; Translations: [Trochanteric bursitis, left hip] Onset: 4 Resolved: 0 09-19-2020 Episodic Other connective tissue disease (20 sources) Disorder of tendon; Translations: [Unspecified disorder of synovium and tendon, left thigh] Onset: 4 Resolved: 0 09-19-2020 Episodic Other connective tissue disease (20 sources) Other symptoms and signs involving the musculoskeletal system; Translations: [Other musculoskeletal symptoms referable to limbs] Onset: 8 Resolved: 0 09-19-2020 Episodic Other connective tissue disease (20 sources) Atrophy of gluteus reinaldo muscle; Translations: [Muscle wasting and atrophy, not elsewhere classified, other site] Onset: 9 Resolved: 0 09-19-2020 Episodic Other connective tissue disease (20 sources) Impingement syndrome of left shoulder region; Translations: [Impingement syndrome of left shoulder] Onset: 9 Resolved: 0 09-19-2020 Episodic Other diseases of veins and lymphatics (20 sources) Venous stasis; Translations: [Other specified disorders of veins] Onset: 7 12-22-2016 Episodic Other ear and sense organ disorders (20 sources) Hearing loss; Translations: [Unspecified hearing loss, unspecified ear] Onset: 7 Resolved: 6 01-09-2016 Chronic Other female genital disorders (20 sources) Dyspareunia; Translations: [Dyspareunia] Resolved: 0 09-19-2020 Chronic Other female genital disorders (20 sources) Vaginospasm; Translations: [Vaginismus] Resolved: 0 09-19-2020 Episodic Other gastrointestinal disorders (20 sources) Irritable bowel syndrome; Translations: [Irritable bowel syndrome without diarrhea] Onset: 7 Resolved: 0 09-19-2020 Chronic Other gastrointestinal disorders (20 sources) Diarrhea; Translations: [Diarrhea, unspecified] Resolved: 8 08-31-2008 Episodic Other inflammatory condition of skin (20 sources) Seborrheic dermatitis; Translations: [Seborrheic dermatitis, unspecified] Onset: 6 11-20-2015 Episodic Other inflammatory condition of skin (1 source) Seborrheic dermatitis, unspecified; Translations: [Seborrheic dermatitis] Onset: 6 Episodic Other lower respiratory disease (1 source) Other forms of dyspnea; Translations: [Exertional dyspnea] Onset: 4 Episodic Other nervous system disorders (20 sources) Abnormal gait; Translations: [Unspecified abnormalities of gait and mobility] Onset: 5 Resolved: 0 09-19-2020 Episodic Other non-epithelial cancer of skin (20 sources) Basal cell carcinoma of face; Translations: [Basal cell carcinoma of skin of other parts of face] Onset: 8 11-18-2011 Episodic Other non-traumatic joint disorders (20 sources) Joint stiffness; Translations: [Stiffness of unspecified joint, not elsewhere classified] Onset: 2 Resolved: 0 09-19-2020 Episodic Other non-traumatic joint disorders (20 sources) Enthesopathy of hip region; Translations: [Other specified joint disorders, left hip] Onset: 4 Resolved: 0 09-19-2020 Episodic Other nutritional; endocrine; and metabolic disorders (20 sources) Hyperuricemia; Translations: [Hyperuricemia without signs of inflammatory arthritis and tophaceous disease] Onset: 7 11-10-2016 Episodic Other nutritional; endocrine; and metabolic disorders (20 sources) Adult failure to thrive syndrome; Translations: [Adult failure to thrive] Onset: 1 04-03-2021 Episodic Other skin disorders (20 sources) Telogen effluvium; Translations: [Telogen effluvium] Onset: 5 10-06-2011 Episodic Other skin disorders (20 sources) Alopecia; Translations: [Nonscarring hair loss, unspecified] Onset: 3 Resolved: 8 08-31-2008 Episodic Other skin disorders (20 sources) Disorder of skin; Translations: [Hypertrophic disorder of the skin, unspecified] Onset: 8 Resolved: 5 08-12-2015 Episodic Other skin disorders (20 sources) Scar conditions and fibrosis of skin; Translations: [Scar conditions and fibrosis of skin] Onset: 8 Resolved: 5 08-12-2015 Episodic Other skin disorders (20 sources) Loss of hair; Translations: [Nonscarring hair loss, unspecified] Onset: 0 Resolved: 0 09-19-2020 Episodic Other skin disorders (1 source) Telogen effluvium; Translations: [Telogen effluvium] Onset: 1 Episodic Pleurisy; pneumothorax; pulmonary collapse (20 sources) Pleural effusion; Translations: [Pleural effusion, not elsewhere classified] Onset: 8 04-21-2018 Episodic Residual codes; unclassified (20 sources) H/O: radiation exposure; Translations: [Personal history of irradiation] Onset: 7 11-26-2021 Episodic Residual codes; unclassified (20 sources) Postmenopausal state; Translations: [Asymptomatic menopausal state] Resolved: 5 07-05-2023 Episodic Residual codes; unclassified (20 sources) Disturbance in sleep behavior; Translations: [Sleep disorder, unspecified] Onset: 7 Resolved: 6 01-09-2016 Episodic Residual codes; unclassified (20 sources) Localized edema; Translations: [Localized edema] Onset: 7 Resolved: 0 09-19-2020 Episodic Residual codes; unclassified (20 sources) Delirium; Translations: [Disorientation, unspecified] Onset: 0 Resolved: 0 10-22-2019 Episodic Spondylosis; intervertebral disc disorders; other back problems (20 sources) Chronic back pain ; Translations: [Dorsalgia, unspecified] Onset: 3 Episodic Sprains and strains (20 sources) Strain of rotator cuff of shoulder; Translations: [Strain of muscle(s) and tendon(s) of the rotator cuff of unspecified shoulder, initial encounter] Onset: 7 Resolved: 0 09-19-2020 Episodic Thyroid disorders (20 sources) Disorder of thyroid gland; Translations: [Disorder of thyroid, unspecified] Onset: 0 Resolved: 0 09-19-2020 Episodic Unclassified (1 source) Patient encounter status 04-03-2025 Varicose veins of lower extremity (20 sources) Venous varices; Translations: [Asymptomatic varicose veins of unspecified lower extremity] Onset: 7 08-26-2007 Episodic Results Test Name Value Interpretation Reference Range Facility [facility] 04-04-2025 CNPN Telephone (CARD CHF GEOFFREY) ZENAIDA EVANS ([id number]) 1935 F Date Time Provider Department 04/04/25 PAUL BAUTISTA CARD CHF [facility]OFF[facility] During your visit today, we recorded the following information about you: Divine Cleary 04/04/2025 8:49 AM Signed This form is used for MAIN CAMPUS APPOINTMENTS ONLY. Is this request for a [place] PET scan appointment? Yes: Tso: Divine Calabrese Who do we call to schedule this appointment? Patient Requesting Staff [id number] Area Code + Phone/Pager: N/A PET Orders (A delay in scheduling will result if the orders are not present at time of review): Internal ADDITIONAL ACTION MAY BE REQUIRED IF PATIENTS OON INSURANCE OR SELF PAY COVERAGE HAS NOT BEEN CLEARED FOR REQUESTED APPOINTMENT. Scheduling: WILIAM: As soon as insurance will allow What account will this PET appointment be linked to? P/F Type of PET: Myocardial (Cardiac). LVEF: LV Ejection Fraction (%) Date Value 04/03/2025 62 Additional comments: Same day/next day medically urgent scans please call [phone] to expedite Send requests to P CARDIAC PET Dee Isaac RN 04/04/2025 9:38 AM Signed Preliminary Approval for Scheduling Purposes ONLY Are Cardiac PET orders Present: Yes Do the order comments specify a Protocol or Instruction? No LVEF: LV Ejection Fraction (%) Date Value 04/03/2025 62 Test Approved: Yes, N/A PET Perfusion Rest AND Stress (0109) Additional Comments: As soon as insurance will allow Encounter for screening for cardiovascular disorders [Z13.6] Test Approved by: Dee Lawson RN If additional orders are required route to ordering physician and to P PET BLACKJACK SUPERVISOR with recommendations. If all recommended orders are present route to P PET BLACKJACK SUPERVISOR Eron Thakkar 04/05/2025 8:24 AM Signed 04/05 1st attempt vmleft Allergies As of Date: 04/04/2025 Noted Allergy Reaction SCOPOLAMINE 10/30/2011 1 - Mental Status Change Comments: Hallucinations AMLODIPINE 03/01/2020 14 - Other: See Comments Comments: Significant swelling even on 2.5 mg per day. ARB-ANGIOTENSIN RECEPTOR ANTAGONI*11/16/2023 15 - Contraindication-Medical [place]* Comments: Bright, hyperkalemia HCTZ (THIAZIDES) 12/15/2019 15 - Contraindication-Medical [place]* [...] - GI Upset Comments: constipation Date Reviewed: 04/03/2025 Reviewed by: Natalya Moreno MA - Fully Assessed Reason for Visit: Nm Pet Request [[id number]] Prescriptions as of 04/05/2025 - indapamide (LOZOL) 2.5 mg tablet Take 1 tablet by mouth once daily. - dapagliflozin propanediol (FARXIGA) 5 mg tablet Take 1 tablet by mouth daily with breakfast. - labetalol (TRANDATE) 200 mg tablet Take 1 tablet by mouth two times a day. - cloNIDine TTS (CATAPRES-TTS) 0.1 mg/24 hr Apply 1 patch as directed one time a week. - nitroglycerin sublingual (NITROQUICK) 0.4 mg SL tablet Dissolve 1 tablet under the tongue as needed for chest pain. If no pain relief call 911. - levothyroxine (SYNTHROID) 88 mcg tablet Take 1 tablet by mouth once daily. - minoxidil (LONITEN) 2.5 mg tablet 1 TABLET DAILY - ketoconazole (NIZORAL) 2 % shampoo Use to wash face and scalp two times a week. Lather and leave in for 3-5 minutes before rinsing. - furosemide (LASIX) 20 mg tablet Take 1 tablet by mouth every Wednesday,Wednesday,Wednesday (0600). - MULTIVITAMIN ORAL Take 1 tablet by mouth once daily. - Melatonin 5 mg cap Take 1 capsule by mouth at bedtime as needed. - biotin 5 mg tab Take 5 mg by mouth once daily. Meds Comments as of 10/05/2022: Problem List As Of Date 04/04/2025 Noted Resolved Hypertensive heart and chronic kidney [...] 08/26/2007 PERS HX OF IRRADIATION-face and neck [Z92.3 (more content not included)... [facility] CNOVon 04-03-2025 CNOV Office Visit (BRAVO C HF GEOFFREY) ZENAIDA EVANS ([id number]) 1935 F Date Time Provider Department 04/03/25 11:30 AM PAUL BAUTISTA CARD CHF GEOFFREY During your visit today, we recorded the following information about you: Pulse Respiration Blood pressure Weight 67/minute 15/minute 168/89 58.5 kg Height 1.689 m Paul Bautista MD 04/03/2025 12:45 PM Signed Heart and Vascular [facility] For Heart Failure SECTION OF HEART FAILURE and CARDIAC TRANSPLANT MEDICINE OUTPATIENT VISIT DATE April 03, 2025 OUTPATIENT VISIT TYPE Established Patient PRIMARY CARE PHYSICIAN: Susannah Clemente [address] [place] [address] CHIEF COMPLAINT: Shortness of breath and chest pain NURSING INTAKE (Patient?s concerns and/or recent hospitalizations/ER visits): HF Nursing Assessment: Interim Hospitalizations and/or ER visits:no Chest Pain: some not today Skipping or irregular heartbeats: no Shortness of breath at rest: no Shortness of breath with activity: yes Cough: yes Waking up in the middle of the night gasping for air: no Lightheadedness or dizziness: yes Feeling like you are going to pass out: sometimes Actually passing out: no Poor energy level: yes Unintentional weight gain: no Unintentional weight loss: no Swelling in your legs,feet, abdomen: unsure Filling up quickly when you eat: no appetite HISTORY OF PRESENT ILLNESS: 89 yo male with pmh of hypertension, CKD stage 3b, hypothyroidism, and HFpEF who presents for further evaluation of her HFpEF. In July of last year, she experienced an episode of dyspnea and chest pain while walking six blocks to a meeting. She describes difficulty breathing, chest pain, and trouble ambulating. The chest pain was localized and did not radiate. Upon returning home, the pain subsided. Following this incident, she underwent a stress test, during which she could only exercise for approximately two minutes due to dyspnea. The test reportedly showed no significant changes in the EKG or echocardiogram. Since then, she reports worsening symptoms, including increased difficulty walking up stairs and daily episodes of chest tension. These episodes occur during physical activity and occasionally require her to stop and rest. The chest pain is less severe than the initial episode but occurs approximately once a day. She denies experiencing chest pain while sitting or during sleep and reports no sleep disruptions due to chest pain. She also reports intermittent episodes of feeling sick, characterized by mild headaches, slight nausea, and low energy. These episodes last a couple of days and then resolve. She denies any recent severe chest pain or new symptoms. Her blood pressure has been stable, averaging around 130 mmHg. She monitors her weight regularly, noting a recent decrease to 128-130 lbs, which she attributes to possibly eating less. She has been supplementing her diet with protein shakes to maintain adequate caloric intake. She is currently taking indapamide and Farxiga 5 mg daily. She previously tried Farxiga 10 mg but could not tolerate it. PAST MEDICAL HISTORY Diagnosis Date Breast cancer (HCC) 09/[address] Nina moraes ER positive s/p surgery/radiation and AI Collagenous colitis 07/30/2017 On biopsy 2012. Diarrhea hx of colitis Diffuse cystic mastopathy Dyspareunia Essential hypertension H/O complete eye exam 03/13/2011 no retinopathy detected -both eyes - [facility] - return in 1 year - [...] W/WO RMVL TUBE OVARY early Hysterectomy, CAROL, du (more content not included)... Normal [facility] ECHOon 04-03-2025 Echocardiography Echocardiography Rep ort: Transthoracic Echo [facility] J1-5 Date of service: 04/03/2025 10:26:57 AM TEAM MEMBER Ordering physician: PAUL BAUTISTA Exam indication: HF Technologist: Slime Dahl Interpreting physician: Eugene Herrera MD PATIENT: Name: MRS. ZENAIDA EVANS : 1935 Age: 89 years Gender: F History of hypertension. Primary rhythm: sinus. Height: 167.60 cm BSA: 1.68 m Weight: 60.96 kg BMI: 21.7 kg/m Heart rate 74 bpm Blood pressure 184/84 mmHg Technically difficult exam due to suboptimal positioning and sensitive to probe. Color Doppler was utilized to interrogate the cardiac valves assessed and spectral Doppler was utilized to determine the flow velocities and pressure gradients reported in this exam. MEASUREMENTS: Value Indexed Normal Max aortic dimension 3.2 cm Ao < 3.8 Left atrial volume 44 ml (Justin's) 26 ml/m Chan <= 34 LV ID (diastole) 3.4 cm (2D) 2.02 cm/m LV ID (systole) 2.3 cm (2D) 1.39 cm/m IVS, leaflet tips 1.1 cm (2D) Posterior wall thickness 0.9 cm (2D) Left ventricular mass 100 g (2D) 60 g/m LV stroke volume 55 ml (2D biplane) LV end diastolic volume 89 ml (2D biplane) 52.7 ml/m 29<=EDVi<62 LV end systolic volume 34 ml (2D biplane) 20.1 ml/m Ejection Fraction 62 % (2D biplane) EF > 54 FINDINGS: LEFT VENTRICLE The left ventricle is normal in size. Left ventricular systolic function is normal. Normal left ventricular diastolic function. Mitral annular lateral E/e': 11.6. Mitral annular septal E/e': 13.1. Wall Motion: All scored segments are normal. RIGHT VENTRICLE The right ventricle is normal in size. Right ventricular systolic function is normal. RV systolic tissue Doppler velocity is 13.6 cm/s. Tricuspid annular displacement is 2.7 cm. Estimated right ventricular systolic pressure is likely underestimated due to a weak or incomplete tricuspid regurgitation signal and is, at least, 32 mmHg consistent with normal pulmonary artery pressures. Estimated right atrial pressure is 8 mmHg based on IVC assessment. LEFT ATRIUM The left atrial cavity is normal in size. RIGHT ATRIUM The right atrial cavity is normal in size. Inferior Vena Cava: The inferior vena cava appears dilated measuring 2.5 cm. The vessel decreases greater than 50 percent with inspiration. MITRAL VALVE There is mild mitral annular calcification observed posterior. There is trace (trace - 1+) mitral valve regurgitation. There is mild thickening. The pressure half time is 52 msec. The peak mitral E/A ratio is 0.76. The average mitral E/e' ratio is 12.4. The mitral flow deceleration time is 181 msec. TRICUSPID VALVE There is trace tricuspid valve regurgitation. There is no thickening. AORTIC VALVE There is mild (1+) aortic valve regurgitation. Tricuspid aortic valve. There is mild thickening. The peak gradient is 5 mmHg (peak velocity = 108.0 cm/s). PULMONIC VALVE There is trace (trace - 1+) pulmonic valve regurgitation. There is no thickening. AORTA The visualized aorta is normal in size. Measurements - Sinus: 2.8 cm. Mid ascending aorta 3.2 cm. INTERATRIAL SEPTUM There is no evidence of intracardiac shunting as detected by Doppler. INTERVENTRICULAR SEPTUM There is no flow through the interventricular septum as detected by Doppler. PERICARDIUM There is no pericardial effusion. CONCLUSIONS: - Technically difficult exam due to suboptimal positioning and sensitive to probe. - Exam indication: HF - The left ventricle is normal in size. Left ventricular systolic function is normal. EF = 62 5% (2D biplane) - The right ventricle is normal in size. Right ventricular systolic function is normal. - Exam was compared with the prior echocardiographic exam performed on 07/27/2024. There is no significant change. * * * Final * * * [employer] Image : [id number] [email or web address] Normal [facility] CNPNon 04-02-2025 CNPN Telephone (INTMBR) ZENAIDA EVANS ([id number]) 1935 F Date Time Provider Department 04/02/25 SUSANNAH CLEMENTE INTRenny During your visit today, we recorded the following information about you: Tara Orona MA 04/02/2025 10:05 AM Signed Placed form in Dr. Cleemnte's in basket, please sign Susannah Clemente MD 04/05/2025 3:57 PM Signed This is an application to a wellness program at [facility]. I see that her Biostatistics Teacher has ordered a stress test and I would have to defer to him if there are any limitations after we receive results of the stress test. Tara Orona MA 04/05/2025 4:03 PM Signed Placed form in pending paper slot above JOAN''s desk Allergies As of Date: 04/02/2025 Noted Allergy Reaction SCOPOLAMINE 10/30/2011 1 - Mental Status Change Comments: Hallucinations AMLODIPINE 03/01/2020 14 - Other: See Comments Comments: Significant swelling even on 2.5 mg per day. ARB-ANGIOTENSIN RECEPTOR ANTAGONI*11/16/2023 15 - Contraindication-Medical [place]* Comments: Bright, hyperkalemia HCTZ (THIAZIDES) 12/15/2019 15 - Contraindication-Medical [place]* [...] - GI Upset Comments: constipation Date Reviewed: 03/27/2025 Reviewed by: Tara Orona MA - Fully Assessed Reason for Visit: Forms [913] Cmt: [facility] Prescriptions as of 04/05/2025 - indapamide (LOZOL) 2.5 mg tablet Take 1 tablet by mouth once daily. - dapagliflozin propanediol (FARXIGA) 5 mg tablet Take 1 tablet by mouth daily with breakfast. - labetalol (TRANDATE) 200 mg tablet Take 1 tablet by mouth two times a day. - cloNIDine TTS (CATAPRES-TTS) 0.1 mg/24 hr Apply 1 patch as directed one time a week. - nitroglycerin sublingual (NITROQUICK) 0.4 mg SL tablet Dissolve 1 tablet under the tongue as needed for chest pain. If no pain relief call 911. - levothyroxine (SYNTHROID) 88 mcg tablet Take 1 tablet by mouth once daily. - minoxidil (LONITEN) 2.5 mg tablet 1 TABLET DAILY - ketoconazole (NIZORAL) 2 % shampoo Use to wash face and scalp two times a week. Lather and leave in for 3-5 minutes before rinsing. - furosemide (LASIX) 20 mg tablet Take 1 tablet by mouth every Wednesday,Wednesday,Wednesday (0600). - MULTIVITAMIN ORAL Take 1 tablet by mouth once daily. - Melatonin 5 mg cap Take 1 capsule by mouth at bedtime as needed. - biotin 5 mg tab Take 5 mg by mouth once daily. Meds Comments as of 10/05/2022: Problem List As Of Date 04/02/2025 Noted Resolved Hypertensive heart and chronic kidney [...] Bcc L cheek 02/22 [C44.319] 04/24/2008 MAMMOGRAPHIC MICROCALCIFICATION [R92.0] 05/09/2008 Unspecified hypertrophic and atrophic condition*06/14/2008 08/12/2015 Scar condition and fibrosis of skin [L90.5] 06/14/2008 08/12/2015 CKD (chronic kidney disease) stage 3, GFR 30-59*05/20/2010 01/08/2023 Hair loss [L65.9] 06/18/2010 09/19/2020 Thyroid disorder [E07.9] 06/18/2010 09/19/2020 Hypothyroid [E03.9] 05/21/2011 09/21/2013 Visit for gynecologic examination [Z01.419] 10/05/2011 09/19/2020 hx of low vitamin D treated [E55.9] 08/18/2007 Right Breast Cancer [C50.919] 10/13/2011 01/08/2023 hx of breast cancer ER positive [C50.919] 09/10/2015 Stiffness in joint [M25.60] 12/02/2011 09/19/2020 Personal history of malignant neopla (more content not included)... Normal [facility] CNOVon 03-27-2025 CNOV Office Visit (INTMBR ) ZENAIDA EVANS ([id number]) 1935 F Date Time Provider Department 03/27/25 3:50 PM SUSANNAH CLEMENTE During your visit today, we recorded the following information about you: Temperature Pulse Blood pressure Weight 97.6 degrees 62/minute 149/81 60.4 kg Height 1.676 m Susannah Clemente MD 03/27/2025 5:41 PM Signed Zenaida Evans is a 89 year old female here for a Medicare wellness visit. Recording using [employer] software for draft documentation of the visit was discussed with the patient/authorized fraud representative; all questions welcomed and answered. Patient/authorized fraud representative agreed to proceed Zenaida Evans is a 89-year-old female with a history of heart failure, presenting for evaluation of recent episodes of chest pressure, dyspnea, and fatigue. Zenaida reports experiencing two episodes of chest pressure, dyspnea, and fatigue over the past few weeks, similar to previous heart failure symptoms. These episodes lasted a couple of days each and resolved spontaneously. She describes the chest pressure as a heavy feeling and notes significant fatigue, stating she could hardly move and felt completely washed out at night. These symptoms were not associated with any specific activities and occurred during routine tasks such as laundry and dishes. She denies any recent changes in weight, which has remained stable between 129-132 lbs. She is currently taking indapamide and has not used Lasix recently (in years). Zenaida also mentions a previous episode in July where she experienced severe fatigue and difficulty walking during a meeting in [facility]. A stress test was performed in July following this event, which showed her heart rate only reached 79% of the maximum, but no ischemia was detected. She has a follow-up appointment with her power plant manager, Dr. Bautista, next week and an echocardiogram scheduled for the . Additionally, Zenaida reports intermittent abdominal discomfort, reminiscent of symptoms from 3-5 years ago when she was frequently hospitalized. She had a scope in 2019 revealing a 1 cm hiatal hernia and a CT scan showing possible gastric mass and wall thickening. An MRI in September 2023 identified a pancreatic cystic lesion. She denies current issues with collagenous colitis, which has been asymptomatic for the past 4-5 years. Zenaida is also dealing with significant stress due to her daughter's recent surgeries for ovarian and pancreatic cancer, and the of her best friend of 70 years in January. She mentions her 's recent TAVR surgery, which went well, but his medical problems add to her overall stress. She is considering the Grail test for cancer screening and has a history of breast cancer from 12 years ago. She is due for a mammogram and has standing orders for CBC and BMP every 3 months. She also needs refills for labetalol and clonidine. She denies any current skin issues and has no recent surgical history since her left hand surgery in 2020. She reports good vision but acknowledges needing audiology referral for hearing issues. Blood pressure's at home better. 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) Latest Ref Rng AND Units 02/01/2025 06/24/2024 11/02/2023 BMP Glucose 74 - 99 mg/dL 102 100 82 BUN 7 - 21 mg/dL 43 30 31 Creatinine 0.58 - 0.96 mg/dL 1.38 1.34 1.42 Sodium 136 - 144 mmol/L 139 144 145 Potassium 3.7 - 5.1 mmol/L 4.7 4.6 4.7 Chloride 98 - 107 mmol/L 104 106 105 CO2 22 - 30 mmol/L 28 27 26 Anion Gap 8 - 15 mmol/L 7 11 14 Calcium 8.5 - 10.2 mg/dL 9.9 9.6 10.4 EGFR >=60 mL/min/1.73m? 37 38 36 Kidney function has been stable. Hemoglobin (g/dL) Date Value 02/01/2025 11.0 12/08/2021 10.5 Hematocrit (%) Date Value 02/01/2025 33.2 12/08/2021 31.4 WBC (k/uL) Date Value 02/01/2025 4.29 12/08/2021 4.18 Platelet Count (k/uL) Date Value 02/01/2025 150 12/08/2021 200 Medicare Health Risk Assessment General Health Good Exercise: Minutes/Day 50 min Exercise: Days/Week 3 days Alcohol: Daily Use Never Alcohol: Drinks/Day Patient does not drink Alcohol: 6 or more drinks Never Feel off balance Yes Concerns: Teeth/Dentures No Concerns: Sexual function Decline Troubled by feelings Stressed Frequency: Eating healthy diet More than half the days ADLs requiring help Grocery shopping Safety precautions in home/vehicle Yes Smoke, vape, chews tobacco No Difficulty hearing Yes Difficulty seeing No Current Providers Specialists: I have reviewed specialist-related care of the patient in the medical record. Dr. Bautista Cardiology Dr. Candace Manning [facility] Alicia Hylton, Breast Psychology [facility] [place] when daughter was sick [facility] GI Medical/Family history review Reviewed and updated problem list, medical/surgical/famil (more content not included)... Normal [facility] Basic metabolic 2000 panelon 02-01-2025 Anion gap [Moles/Vol] 7 mmol/L Low 8-15 [facility] Comment on above: Order Comment: Speci men Type: BLOOD SPECIMENOrdering Facility: [facility] Address: [address] [place], [place] [address] Performed By: #### 2 4321-2 ####[facility] SOLISCOSTBRANDON [id number] [place] [id number] [place] Calcium [Mass/Vol] 9.9 mg/dL Normal 8.5-10.2 [facility] Comment on above: Order Comment: Speci men Type: BLOOD SPECIMENOrdering Facility: [facility] Address: [address] [place] [address] Performed By: #### 2 4321-2 ####[facility]ITAL[facility]CL[facility] [id number] [place] [address] [place] Chloride [Moles/Vol] 104 mmol/L Normal 98-107 [facility] Comment on above: Order Comment: Speci men Type: BLOOD SPECIMENOrdering Facility: [facility] Address: [address] [place] [address] Performed By: #### 2 4321-2 ####[facility] [id number] [place] [address] [place] CO2 [Moles/Vol] 28 mmol/L Normal 22-30 [facility] Comment on above: Order Comment: Speci men Type: BLOOD SPECIMENOrdering Facility: [facility] Address: [address] [place] [address] Performed By: #### 2 4321-2 ####[facility] [id number] [place] [address] [place] Creatinine [Mass/Vol] 1.38 mg/dL High 0.58-0.96 [facility] Comment on above: Order Comment: Speci men Type: BLOOD SPECIMENOrdering Facility: [facility] Address: [address] [place] [address] Performed By: #### 2 4321-2 ####[facility]ITALNCLIA [id number] [place] [address] [place] Creatinine and Glomerular filtration rate.predicted panel (S/P/Bld) 37 mL/min/1.73m??? Low >=60 [facility] Comment on above: Order Comment: Speci men Type: BLOOD SPECIMENOrdering Facility: [facility] Address: [address] [place] [address] Result Comment: Shanon mated Glomerular Filtration Rate (eGFR) is calculated using the 2020 CKD-EPI creatinine equation. This equation utilizes serum creatinine, sex, and age as parameters. The creatinine assay has traceable calibration to isotope dilution-mass spectrometry. Refer to KDIGO guidelines for clinical interpretation. In patients with unstable renal function, e.g. those with acute kidney injury, the eGFR may not accurately reflect actual GFR. Performed By: #### 2 4321-2 ####[facility] [id number] [place] [address] [place] Glucose [Mass/Vol] 102 mg/dL High 74-99 [facility] Comment on above: Order Comment: Ledy pablo Type: BLOOD SPECIMENOrdering Facility: [facility] Address: [address] [place] [address] Result Comment: The [place] Diabetes Association (ADA) provides guidance for cutoff values for fasting glucose and random glucose. The ADA defines fasting as no caloric intake for at least 8 hours. Fasting plasma glucose results between 100 to 125 mg/dL indicate increased risk for diabetes (prediabetes). Fasting plasma glucose results greater than or equal to 126 mg/dL meet the criteria for diagnosis of diabetes. In the absence of unequivocal hyperglycemia, results should be confirmed by repeat testing. In a patient with classic symptoms of hyperglycemia or hyperglycemic crisis, random plasma glucose results greater than or equal to 200 mg/dL meet the criteria for diagnosis of diabetes. Reference: Standards of Medical Care in Diabetes 2016, [place] Diabetes Association. Diabetes Care. 2016.39(Suppl 1). Performed By: #### 2 4321-2 ####[facility] [id number] [place] [address] [place] Potassium [Moles/Vol] 4.7 mmol/L Normal 3.7-5.1 [facility] Comment on above: Order Comment: Ledy pablo Type: BLOOD SPECIMENOrdering Facility: [facility] Address: [address] [place] [address] Performed By: #### 2 4321-2 ####[facility] [id number] [place] [address] [place] Sodium [Moles/Vol] 139 mmol/L Normal 136-144 [facility] Comment on above: Order Comment: Speci men Type: BLOOD SPECIMENOrdering Facility: [facility] Address: [address] [place] [address] Performed By: #### 2 4321-2 ####[facility]OSPITALNCTONYA [id number] [place] [address] [place] Urea nitrogen [Mass/Vol] 43 mg/dL High 7-21 [facility] Comment on above: Order Comment: Speci men Type: BLOOD SPECIMENOrdering Facility: [facility] Address: [address] [place] [address] Performed By: #### 2 4321-2 ####[facility]WNCL[facility] [id number] [place] [address] [place] CBC W Auto Differential pane l (Bld)on 02-01-2025 Basophils (Bld) [#/Vol] 10*3/uL Normal <0.11 [facility] Comment on above: Order Comment: Speci men Type: BLOOD SPECIMENOrdering Facility: [facility] Address: [address] [place] [address] Performed By: #### 5 7021-8 ####[facility]ITALNCLIA [id number] [place] [address] [place] Basophils/100 WBC (Bld) 0.5 % Normal [facility] Comment on above: Order Comment: Speci men Type: BLOOD SPECIMENOrdering Facility: [facility] Address: [address] [place] [address] Performed By: #### 5 7021-8 ####[facility]ITALNCLIA [id number] [place] [address] [place] Differential cell count method Nom (Bld) Auto Normal [facility] Comment on above: Order Comment: Speci men Type: BLOOD SPECIMENOrdering Facility: [facility] Address: [address] [place] [address] Performed By: #### 5 7021-8 ####[facility]ITALGEORGEMOUNTAINSTAR [facility] [id number] [place] [address] [place] Eosinophils (Bld) [#/Vol] 0.06 10*3/uL Normal <0.46 [facility] Comment on above: Order Comment: Speci men Type: BLOOD SPECIMENOrdering Facility: [facility] Address: [address] [place] [address] Performed By: #### 5 7021-8 ####[facility] [id number] [place] [address] [place] Eosinophils/100 WBC (Bld) 1.4 % Normal [facility] Comment on above: Order Comment: Speci men Type: BLOOD SPECIMENOrdering Facility: [facility] Address: [address] [place] [address] Performed By: #### 5 7021-8 ####[facility] [id number] [place] [address] [place] Erythrocyte distribution width (RBC) [Ratio] 12.8 % Normal 11.5-15.0 [facility] Comment on above: Order Comment: Speci men Type: BLOOD SPECIMENOrdering Facility: [facility] Address: [address] [place] [address] Performed By: #### 5 7021-8 ####[facility] [id number] [place] [address] [place] Hematocrit (Bld) [Volume fraction] 33.2 % Low 36.0-46.0 [facility] Comment on above: Order Comment: Speci men Type: BLOOD SPECIMENOrdering Facility: [facility] Address: [address] [place] [address] Performed By: #### 5 7021-8 ####[facility] [id number] [place] [address] [place] Hemoglobin (Bld) [Mass/Vol] 11.0 g/dL Low 11.5-15.5 [facility] Comment on above: Order Comment: Speci men Type: BLOOD SPECIMENOrdering Facility: [facility] Address: [address] [place] [address] Performed By: #### 5 7021-8 ####[facility] HOSPITALLIA [id number] [place] [address] [place] Immature granulocytes (Bld) [#/Vol] 10*3/uL Normal <0.10 [facility] Comment on above: Order Comment: Speci men Type: BLOOD SPECIMENOrdering Facility: [facility] Address: [address] [place] [address] Performed By: #### 5 7021-8 ####[facility]A [id number] [place] [address] [place] Immature granulocytes/100 WBC (Bld) 0.2 % Normal [facility] Comment on above: Order Comment: Speci men Type: BLOOD SPECIMENOrdering Facility: [facility] Address: [address] [place] [address] Performed By: #### 5 7021-8 ####[facility]PITALLIA [id number] [place] [address] [place] Lymphocytes (Bld) [#/Vol] 1.82 10*3/uL Normal 1.00-4.00 [facility] Comment on above: Order Comment: Speci men Type: BLOOD SPECIMENOrdering Facility: [facility] Address: [address] [place] [address] Performed By: #### 5 7021-8 ####[facility]ITALNCLIA [id number] [place] [address] [place] Lymphocytes/100 WBC (Bld) 42.4 % Normal [facility] Comment on above: Order Comment: Speci men Type: BLOOD SPECIMENOrdering Facility: [facility] Address: [address] [place] [address] Performed By: #### 5 7021-8 ####[facility]PITALNCMOUNTAINSTAR [facility]ALTH[facility] [id number] [place] [address] [place] MCH (RBC) [Entitic mass] 31.3 pg Normal 26.0-34.0 [facility] Comment on above: Order Comment: Speci men Type: BLOOD SPECIMENOrdering Facility: [facility] Address: [address] [place] [address] Performed By: #### 5 7021-8 ####[facility]ITALNCMOUNTAINSTAR [facility]ALTHC[facility] [id number] [place] [address] [place] MCHC (RBC) [Mass/Vol] 33.1 g/dL Normal 30.5-36.0 [facility] Comment on above: Order Comment: Speci men Type: BLOOD SPECIMENOrdering Facility: [facility] Address: [address] [place] [address] Performed By: #### 5 7021-8 ####[facility] [id number] [place] [address] [place] MCV (RBC) [Entitic vol] 94.3 fL Normal 80.0-100.0 [facility] Comment on above: Order Comment: Speci men Type: BLOOD SPECIMENOrdering Facility: [facility] Address: [address] [place] [address] Performed By: #### 5 7021-8 ####[facility]ITALNCMOUNTAINSTAR [facility]ALTH[facility] [id number] [place] [address] [place] Monocytes (Bld) [#/Vol] 0.41 10*3/uL Normal <0.87 [facility] Comment on above: Order Comment: Speci men Type: BLOOD SPECIMENOrdering Facility: [facility] Address: [address] [place] [address] Performed By: #### 5 7021-8 ####[facility] WILLJOSSELIA [id number] [place] [address] [place] Monocytes/100 WBC (Bld) 9.6 % Normal [facility] Comment on above: Order Comment: Speci men Type: BLOOD SPECIMENOrdering Facility: [facility] Address: [address] [place] [address] Performed By: #### 5 7021-8 ####[facility]PITALNCLIA [id number] [place] [address] [place] Neutrophils (Bld) [#/Vol] 1.97 10*3/uL Normal 1.45-7.50 [facility] Comment on above: Order Comment: Speci men Type: BLOOD SPECIMENOrdering Facility: [facility] Address: [address] [place] [address] Performed By: #### 5 7021-8 ####[facility]A [id number] [place] [address] [place] Neutrophils/100 WBC (Bld) 45.9 % Normal [facility] Comment on above: Order Comment: Speci men Type: BLOOD SPECIMENOrdering Facility: [facility] Address: [address] [place] [address] Performed By: #### 5 7021-8 ####[facility] HOSPITALNCLIA [id number] [place] [address] [place] Nucleated RBC (Bld) [#/Vol] 10*3/uL Normal <0.01 [facility] Comment on above: Order Comment: Speci men Type: BLOOD SPECIMENOrdering Facility: [facility] Address: [address] [place] [address] Performed By: #### 5 7021-8 ####[facility] DAYTONA BEACHTOWNCLIA [id number] [place] [address] [place] Nucleated RBC/100 WBC (Bld) [Ratio] 0.0 /100 WBC Normal [facility] Comment on above: Order Comment: Speci men Type: BLOOD SPECIMENOrdering Facility: [facility] Address: [address] [place] [address] Performed By: #### 5 7021-8 ####[facility] WILLCOSTBRANDON [id number] [place] [address] [place] Platelet mean volume (Bld) [Entitic vol] 9.1 fL Normal 9.0-12.7 [facility] Comment on above: Order Comment: Speci men Type: BLOOD SPECIMENOrdering Facility: [facility] Address: [address] [place] [address] Performed By: #### 5 7021-8 ####[facility] HOSPITALGEORGEScott [id number] [place] [address] [place] Platelets (Bld) [#/Vol] 150 10*3/uL Normal 150-400 [facility] Comment on above: Order Comment: Speci men Type: BLOOD SPECIMENOrdering Facility: [facility] Address: [address] [place] [address] Performed By: #### 5 7021-8 ####[facility] WILLCOSTBRYANNAA [id number] [place] [address] [place] RBC (Bld) [#/Vol] 3.52 10*6/uL Low 3.90-5.20 [facility] Comment on above: Order Comment: Speci men Type: BLOOD SPECIMENOrdering Facility: [facility] Address: [address] [place] [address] Performed By: #### 5 7021-8 ####[facility]OSPITALNCLIA [id number] [place] [address] [place] WBC (Bld) [#/Vol] 4.29 10*3/uL Normal 3.70-11.00 [facility] Comment on above: Order Comment: Speci men Type: BLOOD SPECIMENOrdering Facility: [facility] Address: [address] [place] [address] Performed By: #### 5 7021-8 ####[facility]ITALLI [id number] [place] [id number] [place] [address] [place] CNPNon 01-15-2025 CNPN Telephone (INTMBR) ZENAIDA EVANS ([id number]) 1935 F Date Time Provider Department 01/15/25 SUSANNAH CLEMENTE INTMBR During your visit today, we recorded the following information about you: Juliet Ayala 01/15/2025 11:06 AM Signed Tommy is calling Susannah Clemente MD today to request Orders (Medical Massage) Patient has been identified by name and birthdate. Duration of symptoms: N/A Person calling: spouse: Tommy Call patient at: [phone] (home) [phone] (cell) Was an appointment scheduled: Closing statement: Ruby Gamez PA-C 01/16/2025 8:27 AM Signed Please find out reason for patient wanting medical massage as the order requires a diagnosis Keyona Mckeon LPN 01/17/2025 8:16 AM Signed Left message for patient to return call. Message can be given upon returned call. Tara Orona MA 01/19/2025 9:21 AM Signed Spoke with patient and stated that this was ordered in the past by Ruby Hurst and to use the DX on the previous order. Last order was 10/04/2023. Ruby Hurst PA-C 01/19/2025 11:25 AM Signed Order placed, please inform patient Tara Orona MA 01/19/2025 1:06 PM Signed Mailed to patient Allergies As of Date: 01/15/2025 Noted Allergy Reaction SCOPOLAMINE 10/30/2011 1 - Mental Status Change Comments: Hallucinations AMLODIPINE 03/01/2020 14 - Other: See Comments Comments: Significant swelling even on 2.5 mg per day. ARB-ANGIOTENSIN RECEPTOR ANTAGONI*11/16/2023 15 - Contraindication-Medical [place]rea* Comments: Bright, hyperkalemia HCTZ (THIAZIDES) 12/15/2019 15 - Contraindication-Medical [place]* [...] - GI Upset Comments: constipation Date Reviewed: 07/26/2024 Reviewed by: Tess Mason RN - Fully Assessed Reason for Visit: Orders [681] Cmt: Medical Massage Primary Visit Diagnosis:Chronic thoracic back pain, unspecified back pain laterality [M54.6, G89.29] Order(s):CONSULT TO MASSAGE THERAPY [[id number]] Order #: [id number]: 1 FUTURE Prescriptions as of 01/19/2025 - minoxidil (LONITEN) 2.5 mg tablet 1 TABLET DAILY - cloNIDine TTS (CATAPRES-TTS) 0.1 mg/24 hr Apply 1 Patch as directed one time a week. - labetalol (TRANDATE) 200 mg tablet Take 1 tablet by mouth two times a day. - indapamide (LOZOL) 1.25 mg tablet Take 1 tablet by mouth once daily. - ketoconazole (NIZORAL) 2 % shampoo Use to wash face and scalp two times a week. Lather and leave in for 3-5 minutes before rinsing. - dapagliflozin propanediol (FARXIGA) 5 mg tablet Take 1 tablet by mouth daily with breakfast. - levothyroxine (SYNTHROID) 88 mcg tablet Take 1 tablet by mouth once daily. - furosemide (LASIX) 20 mg tablet Take 1 tablet by mouth every Wednesday,Wednesday,Wednesday (0600). - MULTIVITAMIN ORAL Take 1 tablet by mouth once daily. - Melatonin 5 mg cap Take 1 capsule by mouth at bedtime as needed. - biotin 5 mg tab Take 5 mg by mouth once daily. Meds Comments as of 10/05/2022: Problem List As Of Date 01/15/2025 Noted Resolved Hypertensive heart and chronic kidney [...] Bcc L cheek 02/22 [C44.319] 04/24/2008 MAMMOGRAPHIC MICROCALCIFICATION [R92.0] 05/09/2008 Unspecified hypertrophic and atrophic condition*06/14/2008 08/12/2015 Scar cond (more content not included)... Normal [facility] CBC W Auto Differential pane l (Bld)on 11-17-2024 Basophils (Bld) [#/Vol] 10*3/uL Normal <0.11 [facility] Comment on above: Order Comment: Speci men Type: BLOOD SPECIMENOrdering Facility: [facility] Address: [address] [place] [address] Performed By: #### 5 7021-8 ####[facility] [id number] [place] [address] [place] Basophils/100 WBC (Bld) 0.5 % Normal [facility] Comment on above: Order Comment: Speci men Type: BLOOD SPECIMENOrdering Facility: [facility] Address: [address] [place] [address] Performed By: #### 5 7021-8 ####[facility] [id number] [place] [address] [place] Differential cell count method Nom (Bld) Auto Normal [facility] Comment on above: Order Comment: Speci men Type: BLOOD SPECIMENOrdering Facility: [facility] Address: [address] [place] [address] Performed By: #### 5 7021-8 ####[facility] HOSPITALNCA [id number] [place] [address] [place] Eosinophils (Bld) [#/Vol] 0.05 10*3/uL Normal <0.46 [facility] Comment on above: Order Comment: Speci men Type: BLOOD SPECIMENOrdering Facility: [facility] Address: [address] [place] [address] Performed By: #### 5 7021-8 ####[facility] WILLKAMALA [id number] [place] [address] [place] Eosinophils/100 WBC (Bld) 1.2 % Normal [facility] Comment on above: Order Comment: Speci men Type: BLOOD SPECIMENOrdering Facility: [facility] Address: [address] [place] [address] Performed By: #### 5 7021-8 ####[facility] HOSPITALNCJOSHUA [id number] [place] [address] [place] Erythrocyte distribution width (RBC) [Ratio] 13.1 % Normal 11.5-15.0 [facility] Comment on above: Order Comment: Speci men Type: BLOOD SPECIMENOrdering Facility: [facility] Address: [address] [place] [address] Performed By: #### 5 7021-8 ####[facility]PITALNCLIA [id number] [place] [address] [place] Hematocrit (Bld) [Volume fraction] 33.8 % Low 36.0-46.0 [facility] Comment on above: Order Comment: Speci men Type: BLOOD SPECIMENOrdering Facility: [facility] Address: [address] [place] [address] Performed By: #### 5 7021-8 ####[facility]ITALNCLIA [id number] [place] [address] [place] Hemoglobin (Bld) [Mass/Vol] 11.4 g/dL Low 11.5-15.5 [facility] Comment on above: Order Comment: Speci men Type: BLOOD SPECIMENOrdering Facility: [facility] Address: [address] [place] [address] Performed By: #### 5 7021-8 ####[facility] MILLWNCLIA [id number] [place] [address] [place] Immature granulocytes (Bld) [#/Vol] 10*3/uL Normal <0.10 [facility] Comment on above: Order Comment: Speci men Type: BLOOD SPECIMENOrdering Facility: [facility] Address: [address] [place] [address] Performed By: #### 5 7021-8 ####[facility]PITALNCLIA [id number] [place] [address] [place] Immature granulocytes/100 WBC (Bld) 0.2 % Normal [facility] Comment on above: Order Comment: Speci men Type: BLOOD SPECIMENOrdering Facility: [facility] Address: [address] [place] [address] Performed By: #### 5 7021-8 ####[facility] HOSPITALLIA [id number] [place] [address] [place] Lymphocytes (Bld) [#/Vol] 1.92 10*3/uL Normal 1.00-4.00 [facility] Comment on above: Order Comment: Speci men Type: BLOOD SPECIMENOrdering Facility: [facility] Address: [address] [place] [address] Performed By: #### 5 7021-8 ####[facility]OSPITALLIA [id number] [place] [address] [place] Lymphocytes/100 WBC (Bld) 46.4 % Normal [facility] Comment on above: Order Comment: Speci men Type: BLOOD SPECIMENOrdering Facility: [facility] Address: [address] [place] [address] Performed By: #### 5 7021-8 ####[facility]OSPITALLIA [id number] [place] [address] [place] MCH (RBC) [Entitic mass] 32.0 pg Normal 26.0-34.0 [facility] Comment on above: Order Comment: Speci men Type: BLOOD SPECIMENOrdering Facility: [facility] Address: [address] [place] [address] Performed By: #### 5 7021-8 ####[facility]OSPITALNCMOUNTAINSTAR [facility]ALTHCARE [id number] [place] [address] [place] MCHC (RBC) [Mass/Vol] 33.7 g/dL Normal 30.5-36.0 [facility] Comment on above: Order Comment: Speci men Type: BLOOD SPECIMENOrdering Facility: [facility] Address: [address] [place] [address] Performed By: #### 5 7021-8 ####[facility]PITALNCMOUNTAINSTAR HEALTHCARE [id number] [place] [address] [place] MCV (RBC) [Entitic vol] 94.9 fL Normal 80.0-100.0 [facility] Comment on above: Order Comment: Speci men Type: BLOOD SPECIMENOrdering Facility: [facility] Address: [address] [place] [address] Performed By: #### 5 7021-8 ####[facility] [id number] [place] [address] [place] Monocytes (Bld) [#/Vol] 0.52 10*3/uL Normal <0.87 [facility] Comment on above: Order Comment: Speci men Type: BLOOD SPECIMENOrdering Facility: [facility] Address: [address] [place] [address] Performed By: #### 5 7021-8 ####[facility]ITALNCMOUNT[facility]STAR [facility]ALTH[facility] [id number] [place] [address] [place] Monocytes/100 WBC (Bld) 12.6 % Normal [facility] Comment on above: Order Comment: Speci men Type: BLOOD SPECIMENOrdering Facility: [facility] Address: [address] [place] [address] Performed By: #### 5 7021-8 ####[facility] WILLTOWNCLIA [id number] [place] [address] [place] Neutrophils (Bld) [#/Vol] 1.62 10*3/uL Normal 1.45-7.50 [facility] Comment on above: Order Comment: Speci men Type: BLOOD SPECIMENOrdering Facility: [facility] Address: [address] [place] [address] Performed By: #### 5 7021-8 ####[facility] MILLWNCLIA [id number] [place] [address] [place] Neutrophils/100 WBC (Bld) 39.1 % Normal [facility] Comment on above: Order Comment: Speci men Type: BLOOD SPECIMENOrdering Facility: [facility] Address: [address] [place] [address] Performed By: #### 5 7021-8 ####[facility] WILLWNCLIA [id number] [place] [address] [place] Nucleated RBC (Bld) [#/Vol] 10*3/uL Normal <0.01 [facility] Comment on above: Order Comment: Speci men Type: BLOOD SPECIMENOrdering Facility: [facility] Address: [address] [place] [address] Performed By: #### 5 7021-8 ####[facility] MILLWNCLIA [id number] [place] [address] [place] Nucleated RBC/100 WBC (Bld) [Ratio] 0.0 /100 WBC Normal [facility] Comment on above: Order Comment: Speci men Type: BLOOD SPECIMENOrdering Facility: [facility] Address: [address] [place] [address] Performed By: #### 5 7021-8 ####[facility] HOSPITALGEORGELIA [id number] [place] [address] [place] Platelet mean volume (Bld) [Entitic vol] 9.4 fL Normal 9.0-12.7 [facility] Comment on above: Order Comment: Speci men Type: BLOOD SPECIMENOrdering Facility: [facility] Address: [address] [place] [address] Performed By: #### 5 7021-8 ####[facility] HOSPITALGEORGELIA [id number] [place] [address] [place] Platelets (Bld) [#/Vol] 159 10*3/uL Normal 150-400 [facility] Comment on above: Order Comment: Speci men Type: BLOOD SPECIMENOrdering Facility: [facility] Address: [address] [place] [address] Performed By: #### 5 7021-8 ####[facility]OSPITALLIA [id number] [place] [address] [place] RBC (Bld) [#/Vol] 3.56 10*6/uL Low 3.90-5.20 [facility] Comment on above: Order Comment: Speci men Type: BLOOD SPECIMENOrdering Facility: [facility] Address: [address] [place] [address] Performed By: #### 5 7021-8 ####[facility]OSPITALLIA [id number] [place] [address] [place] WBC (Bld) [#/Vol] 4.14 10*3/uL Normal 3.70-11.00 [facility] Comment on above: Order Comment: Speci men Type: BLOOD SPECIMENOrdering Facility: [facility] Address: [address] [place] [address] Performed By: #### 5 7021-8 ####[facility]PITALNCLIA [id number] [place] [address] [facility] Laurita 11-15-2024 CNPN Telephone (INTMBR) ZENAIDA EVANS ([id number]) 1935 F Date Time Provider Department 11/15/24 SUSANNAH CLEMENTE INTMBR During your visit today, we recorded the following information about you: Susannah Clemente MD 11/15/2024 11:30 AM Signed Recommend follow up complete blood count to keep an eye on blood counts. Order placed. Keyona Mckeon LPN 11/15/2024 5:21 PM Signed Left message for patient to return call. Message can be given upon returned call [place] Mara Maciel 11/16/2024 9:22 AM Signed Patient returned phone call and stated she will do the test, she stated thank you for the reminder, she appreciates the doctor remembering this. Allergies As of Date: 11/15/2024 Noted Allergy Reaction SCOPOLAMINE 10/30/2011 1 - Mental Status Change Comments: Hallucinations AMLODIPINE 03/01/2020 14 - Other: See Comments Comments: Significant swelling even on 2.5 mg per day. ARB-ANGIOTENSIN RECEPTOR ANTAGONI*11/16/2023 15 - Contraindication-Medical [place]* Comments: Bright, hyperkalemia HCTZ (THIAZIDES) 12/15/2019 15 - Contraindication-Medical [place]* [...] - GI Upset Comments: constipation Date Reviewed: 07/26/2024 Reviewed by: Tess Mason RN - Fully Assessed Primary Visit Diagnosis: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) [N18.32, D63.1] Order(s):COMPLETE BLOOD COUNT AND DIFFERENTIAL [SQCBCDIF] Order #: [id number] FUTURE Prescriptions as of 11/16/2024 - labetalol (TRANDATE) 200 mg tablet Take 1 tablet by mouth two times a day. - indapamide (LOZOL) 1.25 mg tablet Take 1 tablet by mouth once daily. - cloNIDine TTS (CATAPRES-TTS) 0.1 mg/24 hr Apply 1 Patch as directed one time a week. - ketoconazole (NIZORAL) 2 % shampoo Use to wash face and scalp two times a week. Lather and leave in for 3-5 minutes before rinsing. - minoxidil (LONITEN) 2.5 mg tablet 1 TABLET DAILY - dapagliflozin propanediol (FARXIGA) 5 mg tablet Take 1 tablet by mouth daily with breakfast. - levothyroxine (SYNTHROID) 88 mcg tablet Take 1 tablet by mouth once daily. - famotidine (PEPCID) 20 mg tablet Take 1 tablet by mouth once daily as needed. - furosemide (LASIX) 20 mg tablet Take 1 tablet by mouth every Wednesday,Wednesday,Wednesday (0600). - MULTIVITAMIN ORAL Take 1 tablet by mouth once daily. - Melatonin 5 mg cap Take 1 capsule by mouth at bedtime as needed. - biotin 5 mg tab Take 5 mg by mouth once daily. Meds Comments as of 10/05/2022: Problem List As Of Date 11/15/2024 Noted Resolved Hypertensive heart and chronic kidney [...] Bcc L cheek 02/22 [C44.319] 04/24/2008 MAMMOGRAPHIC MICROCALCIFICATION [R92.0] 05/09/2008 Unspecified hypertrophic and atrophic condition*06/14/2008 08/12/2015 Scar condition and fibrosis of skin [L90.5] 06/14/2008 08/12/2015 CKD (chronic kidney disease) stage 3, GFR 30-59*05/20/2010 01/08/2023 Hair loss [L65.9] 06/18/2010 09/19/2020 Thyroid disorder [E07.9] 06/18/2010 09/19/2020 Hypothyroid [E03.9] 05/21/2011 09/21/2013 Visit for gynecologic examination [Z01.419] 10/05/2011 09/19/2020 hx of low vitamin D treated [E55.9] 08/18/2007 Right Breast Cancer [C50.919] 10/13/2011 01/08/2023 hx of breast cancer ER positive [C50.919] 09/10/2015 Stiffness in joint [M25.60] 12/02/2011 09/19/20 (more content not included)... Normal [facility] CNPNon 10-24-2024 CNPN Telephone (FAMPTW) ZENAIDA EVANS ([id number]) 1935 F Date Time Provider Department 10/24/24 SUSANNAH CLEMENTE During your visit today, we recorded the following information about you: Johana Snyder 10/24/2024 10:57 AM Signed Zenaida is calling Susannah Clemente MD today regarding the cancelled Medicare Wellness Visit that was cancelled and no appointments available until October of [address] Clemente, per patient she only wants to see PCP and declined scheduling with any other providers. Please call patient to assist with rescheduling with PCP Patient has been identified by name and birthdate. NOTE: patient is also requesting an order for a mammogram Person calling: self Call patient at: at home [phone] (home) verified as best number per patient Was an appointment scheduled: No Closing statement: Results or non-symptom based questions: Thank you for calling [facility], your call will be returned within the next business day. Johana Victor [facility] Abena Aviles, RN 10/24/2024 11:18 AM Signed Appt made 04/07/25 and pt placed on wait list Allergies As of Date: 10/24/2024 Noted Allergy Reaction SCOPOLAMINE 10/30/2011 1 - Mental Status Change Comments: Hallucinations AMLODIPINE 03/01/2020 14 - Other: See Comments Comments: Significant swelling even on 2.5 mg per day. ARB-ANGIOTENSIN RECEPTOR ANTAGONI*11/16/2023 15 - Contraindication-Medical [place]* Comments: Bright, hyperkalemia HCTZ (THIAZIDES) 12/15/2019 15 - Contraindication-Medical [place]* [...] - GI Upset Comments: constipation Date Reviewed: 07/26/2024 Reviewed by: Tess Mason RN - Fully Assessed Reason for Visit: Orders [681] Appointment [186] Prescriptions as of 10/24/2024 - labetalol (TRANDATE) 200 mg tablet Take 1 tablet by mouth two times a day. - indapamide (LOZOL) 1.25 mg tablet Take 1 tablet by mouth once daily. - cloNIDine TTS (CATAPRES-TTS) 0.1 mg/24 hr Apply 1 Patch as directed one time a week. - ketoconazole (NIZORAL) 2 % shampoo Use to wash face and scalp two times a week. Lather and leave in for 3-5 minutes before rinsing. - minoxidil (LONITEN) 2.5 mg tablet 1 TABLET DAILY - dapagliflozin propanediol (FARXIGA) 5 mg tablet Take 1 tablet by mouth daily with breakfast. - levothyroxine (SYNTHROID) 88 mcg tablet Take 1 tablet by mouth once daily. - famotidine (PEPCID) 20 mg tablet Take 1 tablet by mouth once daily as needed. - furosemide (LASIX) 20 mg tablet Take 1 tablet by mouth every Wednesday,Wednesday,Wednesday (0600). - MULTIVITAMIN ORAL Take 1 tablet by mouth once daily. - Melatonin 5 mg cap Take 1 capsule by mouth at bedtime as needed. - biotin 5 mg tab Take 5 mg by mouth once daily. Meds Comments as of 10/05/2022: Problem List As Of Date 10/24/2024 Noted Resolved Hypertensive heart and chronic kidney [...] Bcc L cheek 02/22 [C44.319] 04/24/2008 MAMMOGRAPHIC MICROCALCIFICATION [R92.0] 05/09/2008 Unspecified hypertrophic and atrophic condition*06/14/2008 08/12/2015 Scar condition and fibrosis of skin [L90.5] 06/14/2008 08/12/2015 CKD (chronic kidney disease) stage 3, GFR 30-59*05/20/2010 01/08/2023 Hair loss [L65.9] 06/18/2010 09/19/2020 Thyroid disorder [E07.9] 06/18/2010 09/19/2020 (more content not included)... Normal [facility] SURGICAL PATHOLOGYOrdered By : Helga German on 07-28-2024 Case Report Surgical Pathology R eport Case: [id number] Authorizing Provider: Michelle Choudhary MD Collected: 07/26/2024 02:14 PM Ordering Location: Dermatology Received: 07/26/2024 07:02 PM Pathologist: Helga German MD Specimen: Skin, Shave Biopsy, A. right cheek, r/o [facility] Work Phone: Clinical History u6ybmORoTXGvd9ojMZKg bGFuZzEw AhRpInWnNrf4XQFlblF8Hdf1NNPs XFertI3tQKYfPBnsQ2lxjkQrmXSo MEMpSAb8oG7amOmjoH9gOeQiLmVr MCBIeCBvZiBOTVNDXHBhciB9 [facility] Work Phone: FINAL DIAGNOSIS m8ucjQSaWIHmjQWhCNnk MlxhbnNp OORmsHYzJ2GsiqjvRCbkXC7rLG3q uNmhzNDkjJMbTRGoUiNur5oac818 xESbk8xmEPCWdvyahTb9rZgoA87x f7I7TgrlM36wuWCcCAK0SFBtWEXx nBUiYSErQQZ9NWHmjJSgP5ggZORd VC7ahxxhGBdmSIclTHTwzYF6CUZk ePEzB9EeEMQzJSlfKIKceky5EbYo Mr2fwILxcCjiHQmyWBPgSMAbHTqz IDOzQdMeDE2lT2rjwipoakfauVEf X5tjUKntSROeKDSsZITer2IqmKuo rZVvXF7uS2Eup8CliLUqLrOtZIPk kV3zzGQkFLDbluwhKAApEJYAF60W XfBvGK3mOQ8eEQGpDEe1WgCZZDsl YXJ9 [facility] Work Phone: Gross Description d8kfySHmYYGjuKLFJZI3 XTPlJU4y tYfuiOx5vOkbNEPhixO8dPXrBXad p3fsQVQ0h0pubvIXYyeeFJTiBS9o TDmtRKPgSF3yLvDuDTVsWrOfCPXi vRTspaPbYpUuYVDgdXWayOH9UGHw PM0irnthXQcwNOkeQSAjedV4TGFc eCLmJ3JfPALiUC7djuqhXFZ1LAUL YumcIv2dnGIiiSngToVtXhEuXMBz VJLiXZOlt2puiyNEwslgxUm8vD4M DGWuV0KfOM1Fs0kgWNVsfWCxLEI6 XLnwd4hpLSalRRN0GUZnRABrDPTj PJ8ZVdVkRRn6BMd8WGqxFxB0MTq7 ICLEKSSmRRN6DCb1PdOyXHn4RBly XFxuaCBcXHQgMSBcXGZsIFxcbmN9 c2gxUDRqwBPxRNK6NXsru4wmJSwm ZVB8JNOiZmUmLLRbTP3NVqKsKQv7 IPz1KNyeMeK9YKv9EBFFOwJmQmDx LCp2CQR0SOLtSJh5RBu9HGaFGdDs Hnb3KhX5WhL5SfG3QXQoUVNoYTVu IjWdVUNaSNGmCHpzbMJhYI1hfVvk UZDwUN0DJXLiHZrfTZAsBrDoNV2i E9mtuvstL5wlsbEjOxoktUF2DJv2 icHmAOCxriVHLanfCPTxDU3LOVFh TJmzJKx2aqVfEGQvUvJzQGEqR76m r5TMr5NfMI0ZDXt2usFnddCNBjde ssZcIUNzD1OvgjMaHFseHNXqge6x wUtaHITsOZY0hRUgDYXeMFkrRN69 sgFrBzK0UD6mFFAaRbWjb9gnljFb B7cmIEdzuIgbAbA5hbUoEfGyjYMk FcCroXU7IDIeDVLdbN3yC2YkJ2pe UU3phHVpm1TyhVmofwUzArCUi4Kv nVu8VWU2Ff2mySDrNLOuoxU4k22p N7Egb3Y9xROpHpFuuFGgGS4IDEOo duIGBjnQDrGRB7XhOcXvTEozZWOj MjQgODozNiBQTVxwYXIgDQpccGFy UZ6NOYJdQqQeFVDpG3ucDFLvZH9A T8Feb6AgNLmanAftKFEdw14gxNAr Nu9gzBPgZPQ9KRCfDNEgwIQgKDFC tDnspJJbXBi2SEXsSZAawNwfTCE5 LC6fLWBwGFAfnHPwADhbC6raTPPc LPPBZenayUxrWuAvwTMoSmO1PNIj xXWrZCS8GZ5wiCqnSZKoZ4JnA1Eb zbV0OUMqbfISUrgcTWDlJD8JVOMq MjIgDQp9 [facility] Work Phone: Performing Lab x2avmDPePFTukMYcVbIh MDAwXGFu d7jsXTMhfGDzGaTyXjFrSlUkFyok yJIiCKEtVrQen4pcf349ePOlk9zs SASrGdH7hLDtYEXfyQKyW205UFBa VGwus3tdg9EaVHHiuEXbb7H6GGQD nsafxBa7wEzrW68bi7N2PflyI3ai GWGuQRHlB4ExDJ8aHPXvHbn8IUH5 ODL0DZFfMJJhK8BwOY8yXKYfbCGc KGe9i1jihAtuAKCcXVH8q6taTEwc mnZyJI0vbj5waKd6o4lqlnEoLDFq EUEevUMUJFPoW1PihVqvDn8xnJo5 vPxnUmrjZGQ2Uvh2IC8gul14kcx1 rTkdLBPkgutaBpM5CStbGOGdecfl CXp8JPmjOVDptFX2THAvdBGoA5Nb YObdXG1pkmg4KQH7ZWhnSKKhGjZ9 SKQmePLyZPPdjTysLRogq218BUS7 KbIrBR7xB4Kcj4E2qG6sjZLoPFFq gICkZsMhVBBwkg8nnXDoSMron5Xf ZST2jwP1fLHthLHbYCMfDQ38Cxpm p8CqMhjlp1MqM61lvZS3KXdec7oh DX1eZcD4maWkJUbqg3urcT1hBxG5 SAwuLE3dYO2mRTPchS4yowpeGFCx OlGffbbcAORtrCgoirAtRg6zjGzm XNI2XAumL8vrtL7bCzU9JJeiZ0hf uB0qSFr3KBsdqPL0FFKwrH1oPU2i vpmao7jgFPcnAGzxLVEwnsF8plLd XYWghYYwF1BgeL2xSOIqEY9rdyqc p6yfCNL4AQitWRHtYRO3AwPjPOIo c6Arhwb4FkDbr0EosISpWJsoR41c i296SSKbxjUmU9pzvPJejxdvaHVz kpobPAttqvU7JLWkLFKrFBmfXWHd XGZzMjBcbGFuZzEwMzNcaGljaFxm YFzwDwCpELKyMQskS3wmVvUnAtFu HEPDyYBrtx9zuTtoNVmctEXlpYLb qQN5eO8gWJWljlAupn6bEEPorGLS jFD4DWlwvtLpD6rxynziNZM6IPTd HUU8J5rfJKTFfbBiDHAoZQHahPAj NHYXWDS5DEW7BYKcXTSNWPDlMMI5 GME3TFFiYVUtrFHmNQKmsmpnUVAa XDNwBPgiQTEvQQQaJcMrePnowA3i VbSeUfAhHPkqGD3lCKWjR0eksGHy UBRsMXTfF9hoGuXiiE2tqDbiDZmh ZjJcZnMyMFxsdHJjaCBMYWJvcmF0 g5R1TTorhZYtzgqjVOpufpEhGVtg tecrIJRqCMszK4jbZyJhTXXrjVaz RXjde0TuTAOvYPFgDsWoVQniJAO7 s2C9ARmsdNWzjzWDSjAJWQ1cyNWo tassMY4SIvkevQNyqibvDFszziSz XHbaccssQQJxDScuS2dgZcQjKQOg aRjtXNseu0NwWZKnUXFgTnJbyFAw fQ== [facility] Work Phone: [facility] Work Phone: STRESS ECHO TREADMILLon 10-1 STRESS ECHO TREADMILL Stress Instrument Technician Report: Stress Echo [facility] Date of service: 07/27/2024 10:26:06 AM TEAM MEMBER Supervising physician: Brandyn Moore DO PATIENT: Name: MRS. ZENAIDA EVANS Age: 89 years Gender: F The supervising physician was in the department and immediately available. Final Echocardiography Report: Stress Echo [facility] Date of service: 07/27/2024 10:26:06 AM TEAM MEMBER Ordering physician: SUSANNAH CLEMENTE Indication: Shortness of Breath Technologist: Lam Higginbotham Interpreting physician: Brandyn Moore DO PATIENT: Name: MRS. ZENAIDA EVANS : 1935 Age: 89 years Gender: F History of hypertension. Primary rhythm: sinus. Height: 167.60 cm BSA: 1.69 m Weight: 61.30 kg BMI: 21.8 kg/m Heart rate 67 bpm Blood pressure 136/76 mmHg Color Doppler was utilized to interrogate the cardiac valves assessed and spectral Doppler was utilized to determine the flow velocities and pressure gradients reported in this exam. MEASUREMENTS: Value Indexed Normal Max aortic dimension 3.0 cm Ao < 3.8 Left atrial volume 34 ml (Justin's) 20 ml/m Chan <= 34 LV ID (diastole) 3.8 cm (2D) 2.28 cm/m LV ID (systole) 2.8 cm (2D) 1.66 cm/m IVS, leaflet tips 0.9 cm (2D) Posterior wall thickness 0.9 cm (2D) Left ventricular mass 107 g (2D) 63 g/m LV stroke volume 33 ml (2D biplane) LV end diastolic volume 58 ml (2D biplane) 34.6 ml/m 29<=EDVi<62 LV end systolic volume 25 ml (2D biplane) 14.8 ml/m Ejection Fraction 57 % (2D biplane) EF > 54 FINDINGS: LEFT VENTRICLE The left ventricle is normal in size. Left ventricular systolic function is normal globally. Grade I left ventricular diastolic dysfunction. Mitral annular lateral E/e': 10.5. Mitral annular septal E/e': 9.2. Wall Motion: Rest: All scored segments are normal. Stress: RIGHT VENTRICLE The right ventricle is normal in size. Right ventricular systolic function is normal. LEFT ATRIUM The left atrial cavity is normal in size. RIGHT ATRIUM The right atrial cavity is normal in size. MITRAL VALVE There is mild mitral annular calcification observed posterior. There is trace mitral valve regurgitation. There is mild thickening. The pressure half time is 86 msec. The peak mitral E/A ratio is 0.62. The average mitral E/e' ratio is 9.9. The mitral flow deceleration time is 298 msec. TRICUSPID VALVE The tricuspid valve leaflets are structurally normal. There is trace tricuspid valve regurgitation. AORTIC VALVE There is mild (1+) aortic valve regurgitation. Tricuspid aortic valve. There is mild thickening. PULMONIC VALVE There is mild (1+) pulmonic valve regurgitation. There is no thickening. AORTA The visualized aorta is normal in size. Measurements - Mid ascending aorta 3.0 cm. PULMONARY ARTERIES The pulmonary arteries are unseen or not interrogated. INTERATRIAL SEPTUM The interatrial septum is normal. INTERVENTRICULAR SEPTUM The interventricular septum is normal. PERICARDIUM The pericardium is normal. CORONARY ARTERIES The coronary arteries are unseen or not interrogated. STRESS ECHO Peak HR 104 bpm. (79 % MPHR) Peak BP 132 mmHg/60 mmHg. The left ventricular cavity size is decreased with stress. Rest Stress TR velocity 280.0 cm/s 326.0 cm/s E/e' average 9.91 14.11 CONCLUSIONS: - Exam indication: Shortness of Breath - The exercise stress echo was negative for ischemia at 79 % of MPHR (4.3 METS). - The left ventricle is normal in size. Left ventricular systolic function is normal. EF = 57 5% (2D biplane) Grade I left ventricular diastolic dysfunction. - The right ventricle is normal in size. Right ventricular systolic function is normal. - Mild aortic regurgitation. - Exam was compared with the prior echocardiographic exam performed on 04/02/2023. Final Stress ECG Report: Stress Echo [facility] Date of service: 07/27/2024 10:26:06 AM TEAM MEMBER Ordering physician: SUSANNAH CLEMENTE insurance follow up specialist: Thomas Escobar Interpreting physician: Brandyn Moore DO Patient name: MRS. ZENAIDA EVANS Age: 89 years Gender: F History of hypertension. Height: 167.60 cm BSA: 1.69 m Weight: 61.30 kg BMI: 21.8 kg/m Indication: Dyspnea on exertion Stress ECG Conclusion: Conclusion: Non-diagnostic due to inadequate HR response (B-cecilia) Stress ECG Summary: The patient's resting heart rate was 67 bpm and blood pressure was 136/76 mmHg. The patient exercised according to the Michael pr (more content not included)... Normal [facility] CNOVon 07-26-2024 CNOV Office Visit (DERMMN ) CRISTINAZENAIDA Cleveland ([id number]) 1935 F Date Time Provider Department 07/26/24 1:50 PM MICHELLE CHOUDHARY DERMMN During your visit today, we recorded the following information about you: Blood pressure Weight Height 188/75 61 kg 1.676 m Michelle Choudhary MD 08/16/2024 5:22 PM Signed Est Patient LV: 02/18/23 CC: TE/broderick derm Zenaidamora Evans is a 89 year old female here to follow up on her TE/[facility] derm -hair is improved no itching burning or pain on the scalp -not much shedding -no longer taking Biotin forte -responding LDOM with increased density and is very satisfied - thyroid within normal limits. Following with [...] 03/13/2011 no retinopathy detected -both eyes - [facility] - return in 1 year - Dr. [...] Current Outpatient Medications Medication Sig Dispense Refill cephALEXin (KEFLEX) 500 mg capsule Take 1 capsule by mouth two times a day for 7 days. 14 capsule 0 labetalol (TRANDATE) 200 mg tablet Take 1 tablet by mouth two times a day. 180 tablet 0 dapagliflozin propanediol (FARXIGA) 5 mg tablet Take 1 tablet by mouth daily with breakfast. 90 tablet 1 levothyroxine (SYNTHROID) 88 mcg tablet Take 1 tablet by mouth once daily. 90 tablet 1 famotidine (PEPCID) 20 mg tablet Take 1 tablet by mouth once daily as needed. 90 tablet 2 cloNIDine TTS (CATAPRES-TTS) 0.1 mg/24 hr Apply 1 Patch as directed one time a week. 12 Patch 3 indapamide (LOZOL) 1.25 mg tablet Take 1 tablet by mouth once daily. 90 tablet 3 minoxidil (LONITEN) 2.5 mg tablet 1 TABLET DAILY 90 tablet 3 ketoconazole (NIZORAL) 2 % shampoo Use to wash face and scalp two times a week. Lather and leave in for 3-5 minutes before rinsing. 240 mL 11 furosemide (LASIX) 20 mg tablet Take 1 tablet by mouth every Wednesday,Wednesday,Wednesday (0600). 36 tablet 3 MULTIVITAMIN ORAL Take 1 tablet by mouth once daily. Melatonin 5 mg cap Take 1 capsule by mouth at bedtime as needed. biotin 5 mg tab Take 5 mg by mouth once daily. No current facility-administered medications for this visit. Latest Ref Rng 06/24/2024 WBC 3.70 - 11.00 k/uL 5.66 RBC 3.90 - 5.20 m/uL 3.61 (L) Hemoglobin 11.5 - 15.5 g/dL 11.3 (L) Hematocrit 36.0 - 46.0 % 35.9 (L) MCV 80.0 - 100.0 fL 99.4 MCH 26.0 - 34.0 pg 31.3 MCHC 30.5 - 36.0 g/dL 31.5 RDW-CV 11.5 - 15.0 % 12.5 Platelet Count 150 - 400 k/uL 172 MPV 9.0 - 12.7 fL 10.8 Neut% % 41.8 Abs Neut (ANC) 1.45 - 7.50 k/uL 2.37 Lymph% % 39.6 Abs Lymph 1.00 - 4.00 k/uL 2.24 Island% % 14.7 Abs Island <0.87 k/uL 0.83 Eosin% % 3.0 Abs Eosin <0.46 k/uL 0.17 Baso% % 0.5 Abs Baso <0.11 k/uL 0.03 Immature Gran % % 0.4 IMMATURE GRANS (ABS) <0.10 k/uL <0.03 NRBC /100 WBC 0.0 Absolute nRBC <0.01 k/uL <0.01 DTYPE Auto Glucose 74 - 99 mg/dL 100 (H) BUN 7 - 21 mg/dL 30 (H) Creatinine 0.58 - 0.96 mg/dL 1.34 (H) Sodium 136 - 144 mmol/L 144 Potassium 3.7 - 5.1 mmol/L 4.6 Chloride 98 - 107 mmol/L 106 CO2 22 - 30 mmol/L 27 Anion Gap 8 - 15 mmol/L 11 Calcium 8.5 - 10.2 mg/dL 9.6 eGFR >=60 mL/min/1.73m? 38 (L) Cholesterol, Total <200 mg/dL 194 Triglyceride <150 mg/dL 84 HDL Cholesterol >39 mg/dL 78 Non HDL Cholesterol <130 mg/dL 116 Fasting Time hrs 12 VLDL Cholesterol <30 mg/dL 17 TC:HDL Ratio <5.10 2.49 LDL Cholesterol <100 mg/dL 99 LDL:HDL Ratio <2.54 1.27 Legend: (L) Low (H) High PE: General appearance: Aaox3, NAD, pleasant (more content not included)... Normal [facility] SURGICAL PATHOLOGYon 10-09-2 024 CASE REPORT Normal [facility] Comment on above: Order Comment: Speci men Type: TISSUE SPECIMENOrdering Facility: [facility] Address: [address] [place] [address] Result Comment: Surg ica Pathology Report Case: [id number] Authorizing Provider: Michelle Choudhary MD Collected: 07/26/2024 02:14 PM Ordering Location: Dermatology Received: 07/26/2024 07:02 PM Pathologist: Helga German MD Specimen: Skin, Shave Biopsy, A. right cheek, r/o NMSC Performed By: #### S ####[facility] LABCLIA [id number] [place] [address] [place] CLINICAL HISTORY Hx of NMSC Normal [facility] Comment on above: Order Comment: Speci men Type: TISSUE SPECIMENOrdering Facility: [facility] Address: [address] [place] [address] Performed By: #### S ####[facility]CLIA [id number] [place] [address] [place] FINAL DIAGNOSIS Normal [facility] Comment on above: Order Comment: Speci men Type: TISSUE SPECIMENOrdering Facility: [facility] Address: [address] [place] [address] Result Comment: A. S kin, right cheek, shave biopsy: - Seborrheic keratosis. MPP/NJV 07/27/24 10:52 AM Performed By: #### S ####[facility] [id number] [place] [address] [place] FINAL PERFORMING LAB Normal [facility] Comment on above: Order Comment: Speci men Type: TISSUE SPECIMENOrdering Facility: [facility] Address: [address] [place] [address] Result Comment: Diag nostic interpretation performed at [facility], [address] [place] [address] CLIA# [id number] Insulation Inspector: Nino Leiva M.D. Performed By: #### S ####[facility] LABIA [id number] [place] [address] [place] GROSS DESCRIPTION Normal [facility] Comment on above: Order Comment: Speci men Type: TISSUE SPECIMENOrdering Facility: [facility] Address: [address] [place] [address] Result Comment: A. S kin, Shave Biopsy Received in formalin are three segments of mc, soft skin aggregating to 1.2 x 0.6 x < 0.1 cm. Specimen is sectioned. Totally submitted in two cassettes. [facility] July 26, 2024 8:36 PM Gross examination performed at [facility], [address] [place] [address] Performed By: #### S ####[facility] [id number] [place] [address] [place] Bacteria Ur Culton 4 Bacteria identified Cx Nom (U) ORGANISM ID: 1 >=100,000 CFU/ml Proteus mirabilis ORGANISM ID: 1 (PROTEUS MIRABILIS) ------ ANTIBIOTIC INTERPRETATION CHARLIE STATUS REFERENCE RANGE ------ Ampicillin S <=2 F Susceptible <=8 , Intermediate >8 , Resistant >16 Cefazolin S <=4 F Susceptible 0-16 , Intermediate <0 or >16 , Resistant >16 For uncomplicated urinary tract infections, cefazolin results can be used to predict susceptibility or resistance to cephalexin. Ceftriaxone S <=1 F Susceptible <=1 , Intermediate >1 , Resistant >=4 Cefepime S <=1 F Susceptible <=2 , Susceptible-Dose Dependent >2 , Resistant >=16 Ertapenem S <=0.5 F Susceptible <=0.5 , Intermediate >.5 , Resistant >1 Meropenem S <=0.25 F Susceptible <=1 , Intermediate >1 , Resistant >2 Ampicillin/Sulbact S <=2 F Susceptible <=8 , Intermediate >8 , Resistant >16 Piperacillin/Tazobac S <=4 F Susceptible <16 , Susceptible-Dose Dependent >=16 , Resistant >=32 Gentamicin S <=1 F Susceptible <=2 , Intermediate >2 , Resistant >=8 Tobramycin S <=1 F Susceptible <4 , Intermediate >=4 , Resistant >=8 Trimeth sulfameth S <=20 F Susceptible <=40 , Resistant >40 Ciprofloxacin S <=0.25 F Susceptible <0.5 , Intermediate >=.5 , Resistant >=1 Nitrofurantoin R 128 F Susceptible <=32 , Intermediate >32 , Resistant >64 Abnormal [facility] Comment on above: Performed By: #### 6 30-4 ####[facility] LABCLIA [id number] [place] [id number] [place] [facility] CNOVon 07-17-2024 CNOV Office Visit (UCWSTR ) ZENAIDA EVANS ([id number]) 1935 F Date Time Provider Department 07/17/24 10:30 AM DOMINGUEZ HARKINS [facility] During your visit today, we recorded the following information about you: Temperature Pulse Respiration Blood pressure 97.3 degrees 82/minute 18/minute 144/84 Weight 62.1 kg Dominguez Harkins MD 07/17/2024 2:24 PM Addendum Patient presents with: urgency with urination: X urgency and pressure x 2 days HPI: Symptoms for 2 days. Dysuria: Yes Vaginal irritation/pruritus: she had symptoms after keflex a few weeks ago that resolved with OTC yeast medicine. Frequency: Yes Hematuria: No Nausea: No Fever or chills: No Back pain: No Abdominal pain: bladder pressure Prior UTI: Yes; most recent culture 06/26/24 grew proteus sensitive to Keflex prescribed. She has not had issues with UTIs for years and wonders if Farxiga may be contributing. MEDICATIONS: Current Outpatient Medications Medication Sig labetalol (TRANDATE) 200 mg tablet Take 1 tablet by mouth two times a day. dapagliflozin propanediol (FARXIGA) 5 mg tablet Take 1 tablet by mouth daily with breakfast. levothyroxine (SYNTHROID) 88 mcg tablet Take 1 tablet by mouth once daily. famotidine (PEPCID) 20 mg tablet Take 1 tablet by mouth once daily as needed. cloNIDine TTS (CATAPRES-TTS) 0.1 mg/24 hr Apply 1 Patch as directed one time a week. indapamide (LOZOL) 1.25 mg tablet Take 1 tablet by mouth once daily. minoxidil (LONITEN) 2.5 mg tablet 1 TABLET DAILY ketoconazole (NIZORAL) 2 % shampoo Use to wash face and scalp two times a week. Lather and leave in for 3-5 minutes before rinsing. furosemide (LASIX) 20 mg tablet Take 1 tablet by mouth every Wednesday,Wednesday,Wednesday (0600). MULTIVITAMIN ORAL Take 1 tablet by mouth once daily. Melatonin 5 mg cap Take 1 capsule by mouth at bedtime as needed. biotin 5 mg tab Take 5 mg by mouth once daily. No current facility-administered medications for this visit. ALLERGIES: ALLERGIES Allergen Reactions Scopolamine Mental Status Change Hallucinations Amlodipine Other: See Comments Significant swelling even on 2.5 mg per day. Arb-Angiotensin Rec* Contraindication-Medical Surgical Bright, hyperkalemia Hctz [Thiazides] Contraindication-Medical Surgical Hyponatremia at 12.5 mg. Hydralazine Intolerance nausea Iron GI Upset CAN TAKE SLO-IRON Jardiance [Empaglif* Diarrhea Lipitor [Atorvastat* Myalgia Losartan Other: See Comments BRIGHT with elevated potassium and creatinine. Spironolactone Intolerance Blood pressure went up Talwin [Pentazocine* Mental Status Change HALLUCINATIONS Verapamil Hcl GI Upset constipation VITALS: BP 144/84 Pulse 82 Temp 36.3 ?C (97.3 ?F) (Tympanic) Resp 18 Wt 62.1 kg (136 lb 14.5 oz) SpO2 95% BMI 22.10 kg/m? PHYSICAL EXAM: GEN: NAD HEENT: EOMI, conjunctiva clear, HEART: regular rate and rhythm, no murmurs LUNGS: clear to auscultation, no wheezes or crackles, no increased WOB ABDOMEN: Soft, nondistended, no masses, midline suprapubic pressure with palpation BACK: No CVA tenderness Latest Ref Rng 06/24/2024 eGFR >=60 mL/min/1.73m? 38 (L) ASSESSMENT/PLAN: 1. Urgency of urination - ICD9: 788.63, ICD10: R39.15 - UA DIP, URINE (POC) - AZO discoloration - URINE CULTURE Start - CEPHALEXIN 500 MG CAPSULE She may discuss risks and benefits of Farxiga with the prescribing physician. Dominguez Harkisn MD Allergies As of Date: 07/17/2024 Noted Allergy Reaction SCOPOLAMINE 10/30/2011 1 - Mental Status Change Comments: Hallucinations AMLODIPINE 03/01/2020 14 - Other: See Comments Comments: Significant swelling even on 2.5 mg per day. ARB-ANGIOTENSIN RECEPTOR ANTAGONI*11/16/2023 15 - Contraindication-Medical [place]* Comments: Bright, hyperkalemia HCTZ (THIAZIDES) 12/15/2019 15 - Contraindication-Medical [place]* [...] - GI Upset Comments: constipation Date Reviewed: 07/17/2024 Reviewed by: Tara Wylie LPN - Fully Assessed Reason for Visit: urgency with urination [Other] Cmt: X urgency and pressure x 2 days Primary Visit Diagnosis:Urgency of urination [R39.15] Order(s):UA DIP, URINE (POC) [[id number]] Order #: [id number]. #:[id number] URINE CULTURE [SQURCUL] Order #: [id number]. #:[id number] cephALEXin (KEFLEX) 500 mg capsuleTake (more content not included)... Normal [facility] UA DIP, URINE (POC)on 2023 BILIRUBIN UA (POCT) Small Abnormal Negative [facility] CLARITY UA (POCT) Clear [facility] COLOR UA (POCT) Cerulean [facility] GLUCOSE UA (POCT) 100 mg/dL Abnormal Negative [facility] Hemoglobin Ql (U) Trace-intact Abnormal Negative [facility] Interpretation and review of laboratory results Abnormal [facility] KETONE UA (POCT) Negative Negative mg/dL [facility] LEUKOCYTES UA (POCT) Large Abnormal Negative [facility] NITRITE UA (POCT) Positive Abnormal Negative [facility] PH UA (POCT) 7.0 4.5 - 8.0 [facility] Protein Ql (U) 100 mg/dL Abnormal Negative [facility] SPECIFIC GRAVITY UA (POCT) 1.020 1.005 - 1.030 [facility] UROBILINOGEN UA (POCT) 2.0 Abnormal Ophelia l E.U./dL [facility] Location:[address], [place], [address] [facility] POINT OF CARE [facility] XR CHEST 2V FRONTAL/LATon XR CHEST 2V FRONTAL/LAT * * *Final Report* * * DATE OF EXAM: Jul 14 2024 9:31AM [id number] - XR CHEST 2V FRONTAL/LAT / PROCEDURE REASON: Exertional dyspnea * * * * Physician Interpretation * * * * EXAMINATION: CHEST RADIOGRAPH (2 VIEW FRONTAL and LATERAL) CLINICAL HISTORY: Exertional dyspnea MQ: [id number] EXAM DATE/TIME: 07/14/2024 9:31 AM COMPARISON: 03/08/2023 RESULT: Lines, tubes, and devices: None. Lungs and pleura: No consolidation. No lung mass. No pleural effusion. No pneumothorax. Cardiomediastinal silhouette: Normal cardiomediastinal silhouette. Bones and soft tissues: Degenerative change throughout the spine. Scoliosis. IMPRESSION: No acute radiographic abnormality. Patient Svcs Mgr: [facility] Transcribe Date/Time: Jul 14 2024 2:10P Dictated by : MANASA CARTER MD This examination was interpreted and the report reviewed and electronically signed by: MANASA CARTER MD on Jul 14 2024 2:11PM EST [id number] Normal [facility] XR Chest PA and Lateralon IMPRESSION: No acute radiographic abnormality. Patient Svcs Mgr: [facility] Transcribe Date/Time: Jul 14 2024 2:10P Dictated by : MANASA CARTER MD This examination was interpreted and the report reviewed and electronically signed by: MANASA CARTER MD on Jul 14 2024 2:11PM EST DIVISION OF RADIOLOGY * * *Final Report* * * DATE OF EXAM: Jul 14 2024 9:31AM [id number] - XR CHEST 2V FRONTAL/LAT / PROCEDURE REASON: Exertional dyspnea * * * * Physician Interpretation * * * * EXAMINATION: CHEST RADIOGRAPH (2 VIEW FRONTAL & LATERAL) CLINICAL HISTORY: Exertional dyspnea MQ: XC2_6 EXAM DATE/TIME: 07/14/2024 9:31 AM COMPARISON: 03/08/2023 RESULT: Lines, tubes, and devices: None. Lungs and pleura: No consolidation. No lung mass. No pleural effusion. No pneumothorax. Cardiomediastinal silhouette: Normal cardiomediastinal silhouette. Bones and soft tissues: Degenerative change throughout the spine. Scoliosis. DIVISION OF RADIOLOGY Provider, [facility] - 07/14/2024 * * *Final Report* * * DATE OF EXAM: Jul 14 2024 9:31AM [id number] - XR CHEST 2V FRONTAL/LAT / PROCEDURE REASON: Exertional dyspnea * * * * Physician Interpretation * * * * EXAMINATION: CHEST RADIOGRAPH (2 VIEW FRONTAL & LATERAL) CLINICAL HISTORY: Exertional dyspnea MQ: XC2_6 EXAM DATE/TIME: 07/14/2024 9:31 AM COMPARISON: 03/08/2023 RESULT: Lines, tubes, and devices: None. Lungs and pleura: No consolidation. No lung mass. No pleural effusion. No pneumothorax. Cardiomediastinal silhouette: Normal cardiomediastinal silhouette. Bones and soft tissues: Degenerative change throughout the spine. Scoliosis. IMPRESSION IMPRESSION: No acute radiographic abnormality. Patient Svcs Mgr: PSCB Transcribe Date/Time: Jul 14 2024 2:10P Dictated by : MANASA CARTER MD This examination was interpreted and the report reviewed and electronically signed by: MANASA CARTER MD on Jul 14 2024 2:11PM EST [facility] Radiology Study observation (narrative) [facility] XR Chest PA and LateralOrder ed By: Ccf Provider on 07-14-2024 [facility] CNOVon 07-13-2024 CNOV Office Visit (FAMPBR ) CRISTINAZENAIDA ([id number]) 1935 F Date Time Provider Department 07/13/24 2:40 PM ERWIN ROSALESPBRenny During your visit today, we recorded the following information about you: Temperature Pulse Respiration Blood pressure 98.2 degrees 63/minute 20/minute 165/82 Weight 62.3 kg Erwin Rosales MD 07/13/2024 3:01 PM Signed This note was created using Cass Artriter. Subjective Zenaida Evans is a 89 year old female. The patient is an 89-year-old female presenting with shortness of breath during physical activity. She reports this symptom manifesting while walking a moderate distance from a parking lot to a meeting, which was unusual for her, as she generally walks a mile on the treadmill without difficulty. The patient noted that the episode occurred on a flat street in [place], and this unexpected breathlessness was accompanied by a sense of inability to reach her destination. Additional stress factors include dealing with her daughter?s serious illness, which she expressed might be exacerbating her symptom due to emotional stress impacting cardiac output. The patient does have a history of congestive heart failure, which she acknowledges could be contributing to her current condition. Regular self-monitoring for fluid retention has shown a weight increase, but she attributes this to different clothing rather than a significant indication of fluid overload, as her weight remains mostly stable. Mild and consistent ankle swelling is noted, for which she takes Lasix as needed, but has not observed any major changes recently. Despite these challenges, other symptoms such as grain trader travel did not reveal further clarification on the cause. There is no significant change in her condition after walking back to the parking lot. Considering her known history of hypertensive heart and chronic kidney disease, as well as congestive heart failure, the patient remains concerned about the implications of this new symptom. REVIEW OF SYSTEMS: Objective BP 165/82 Pulse 63 Temp 36.8 ?C (98.2 ?F) Resp 20 Wt 62.3 kg (137 lb 5.6 oz) SpO2 97% BMI 22.17 kg/m? - Cardiovascular: Reports shortness of breath during physical activity; Denies changes in regular ankle swelling - General: Denies significant weight increase due to fluid retention - Cardiovascular: Heart sounds normal with regular rhythm, no murmurs, rubs, or gallops. - Pulmonary/Chest: Lungs clear to auscultation. 1. 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 It is important to monitor her condition closely, given her history of congestive heart failure and chronic kidney disease. Current management includes regular use of Lasix for fluid management and monitoring weight to detect potential fluid retention. As tests have been ordered previously, it is advised to await these results to further assess cardiac function and kidney status. No additional diagnostic testing or acute alterations to therapeutic management were deemed necessary at this visit. Continue with plan of CXR tomorrow and stress test in early July. She will go to ED for recurrences. 2. Congestive Heart Failure (): No acute signs indicating worsening heart failure were discovered during the examination. Weight remains stable with current management strategies, including the use of diuretics as needed. The patient?s report of shortness of breath, despite stress, does not on its own suggest acute heart failure exacerbation; however, ongoing evaluation and monitoring will be important. It is imperative to continue current management strategies and reassess post upcoming tests to determine any necessary modifications to her treatment plan. Allergies As of Date: 07/13/2024 Noted Allergy Reaction SCOPOLAMINE 10/30/2011 1 - Mental Status Change Comments: Hallucinations AMLODIPINE 03/01/2020 14 - Other: See Comments Comments: Significant swelling even on 2.5 mg per day. ARB-ANGIOTENSIN RECEPTOR ANTAGONI*11/16/2023 15 - Contraindication-Medical Perea* Comments: Bright, hyperkalemia HCTZ (THIAZIDES) 12/15/2019 15 - Contraindication-Medical Perea* Comments: Hyponatremia at 12.5 mg. HYDRALAZINE 08/12/2020 5 - Intolerance Comments: nausea IRON 09/03/2005 8 - GI Upset Comments: CAN TAKE SLO-IRON JARDIANCE (EMPAGLIFLOZIN) 11/20/2022 6 - Diarrhea LIPITOR (ATORVASTATIN) 11/09/2019 17 - Myalgia LOSARTAN 11/28/2019 14 - Other: See Comments Comments: BRIGHT with elevated potassium and creatinine. SPIRONOLACTONE 06/19 (more content not included)... Normal [facility] CNOVon 07-03-2024 CNOV Office Visit (INTMBR ) ZENAIDA EVANS ([id number]) 1935 F Date Time Provider Department 07/03/24 10:20 AM SUSANNAH CLEMENTE INTMBRenny During your visit today, we recorded the following information about you: Temperature Pulse Blood pressure Weight 97.9 degrees 74/minute 136/72 61.3 kg Susannah Clemente MD 07/03/2024 11:03 AM Signed Note created with Style[employer] Software: HPI The patient is a 89-year-old female with a history of HTN, presenting for evaluation of dyspnea and recent UTI. The patient reports intermittent dyspnea for the past 6 months, particularly noticeable when ascending stairs or walking on inclines. She describes the dyspnea as not normal for her and notes that it resolves with rest. She denies wheezing. She was evaluated by cardiology in March and has a follow-up appointment scheduled for next March. She is unsure if an EKG was performed during her last cardiology visit. She is currently on her last day of antibiotics for a recent UTI and reports feeling well with resolution of symptoms. She has been taking Farxiga 10 mg, halved to 5 mg, for over a year without prior incidents of UTIs. She was previously informed that a 5 mg dose was unavailable. She also mentions a recent insect bite that became infected, for which she was prescribed prednisone in May. The infection has since resolved. The patient reports recent stress due to her eldest daughter, Nancie, being diagnosed with pancreatic cancer. Nancie, who is 65 years old, is currently undergoing chemotherapy and is scheduled for surgery after three months of treatment. The patient had initially scheduled a counseling appointment via Zoom but canceled it due to the overwhelming circumstances and is now unable to contact the counselor. She declines the COVID-19 vaccine at this time but plans to receive the flu vaccine in July. She inquires about the [place] cancer screening test. Cardiovascular: (+) shortness of breath Respiratory: (+) shortness of breath (-) wheezing Genitourinary: (+) urinary tract infection BP 136/72 Pulse 74 Temp 36.6 ?C (97.9 ?F) (Oral) Wt 61.3 kg (135 lb 2.3 oz) SpO2 96% BMI 21.81 kg/m? General: No acute distress. Resp: Lungs clear to auscultation bilaterally, no wheezes or rhonchi. CV: Regular rate and rhythm, no murmurs, rubs, or gallops. MSK/Ext: Trace edema bilaterally. No carotid bruits Latest Ref Rng 04/26/2023 07/06/2023 09/28/2023 11/02/2023 12/31/2023 03/27/2024 06/24/2024 WBC 3.70 - 11.00 k/uL 4.38 4.44 3.83 4.55 5.66 RBC 3.90 - 5.20 m/uL 3.50 (L) 3.33 (L) 3.43 (L) 3.39 (L) 3.61 (L) Hemoglobin 11.5 - 15.5 g/dL 11.1 (L) 10.6 (L) 10.9 (L) 10.7 (L) 11.3 (L) Hematocrit 36.0 - 46.0 % 34.0 (L) 32.4 (L) 32.5 (L) 32.0 (L) 35.9 (L) MCV 80.0 - 100.0 fL 97.1 97.3 94.8 94.4 99.4 MCH 26.0 - 34.0 pg 31.7 31.8 31.8 31.6 31.3 MCHC 30.5 - 36.0 g/dL 32.6 32.7 33.5 33.4 31.5 RDW-CV 11.5 - 15.0 % 13.0 12.9 13.2 13.2 12.5 Platelet Count 150 - 400 k/uL 179 196 198 173 172 MPV 9.0 - 12.7 fL 9.5 9.9 9.4 9.6 10.8 Neut% % 49.1 43.9 34.9 51.1 41.8 Abs Neut (ANC) 1.45 - 7.50 k/uL 2.15 1.95 1.34 (L) 2.32 2.37 Lymph% % 38.1 42.1 49.1 35.6 39.6 Abs Lymph 1.00 - 4.00 k/uL 1.67 1.87 1.88 1.62 2.24 Island% % 10.5 11.3 13.1 11.6 14.7 Abs Island <0.87 k/uL 0.46 0.50 0.50 0.53 0.83 Eosin% % 1.6 1.8 1.6 0.9 3.0 Abs Eosin <0.46 k/uL 0.07 0.08 0.06 0.04 0.17 Baso% % 0.5 0.7 1.0 0.4 0.5 Abs Baso <0.11 k/uL <0.03 0.03 0.04 <0.03 0.03 Immature Gran % % 0.2 0.2 0.3 0.4 0.4 IMMATURE GRANS (ABS) <0.10 k/uL <0.03 <0.03 <0.03 <0.03 <0.03 NRBC /100 WBC 0.0 0.0 0.0 0.0 0.0 Absolute nRBC <0.01 k/uL <0.01 <0.01 <0.01 <0.01 <0.01 DTYPE Auto Auto Auto Auto Auto Glucose 74 - 99 mg/dL 90 82 100 (H) BUN 7 - 21 mg/dL 37 (H) 31 (H) 30 (H) Creatinine 0.58 - 0.96 mg/dL 1.47 (H) 1.42 (H) 1.34 (H) Sodium 136 - 144 mmol/L 140 145 (H) 144 Potassium 3.7 - 5.1 mmol/L 4.8 4.7 4.6 Chloride 98 - 107 mmol/L 104 105 106 CO2 22 - 30 mmol/L 25 26 27 Anion Gap 8 - 15 mmol/L 11 14 11 Calcium 8.5 - 10.2 mg/dL 10.0 10.4 (H) 9.6 eGFR >=60 mL/min/1.73m? 35 (L) 36 (L) 38 (L) Cholesterol, Total <200 mg/dL 194 Triglyceride <150 mg/dL 84 HDL Cholesterol >39 mg/dL 78 Non HDL Cholesterol <130 mg/dL 116 Fasting Time hrs 12 VLDL Cholesterol <30 mg/dL 17 TC:HDL Ratio <5.10 2.49 LDL Cholesterol <100 mg/dL 99 LDL:HDL Ratio <2.54 1.27 TSH 0.270 - 4.200 mIU/L 2.040 NT Pro BNP <450 pg/mL 1,186 (H) Culture Assessment and Plan # 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 disease, or chronic kidney disease (HCC) (I13.0) - Blood pressure readings are stable. Recent labs show improvement in renal function with creatinine decreased to 1.34 mg/dL. Hemoglobin levels have increased to 11.3 g/dL. Completed antibiotic treatment for recent UTI; monitor for recurrent infections. Pres (more content not included)... Normal [facility] CNPNon 07-03-2024 CNPN Telephone (FAMPBR) ZENAIDA EVANS ([id number]) 1935 F Date Time Provider Department 07/03/24 SUSANNAH CLEMENTE FAMPBR During your visit today, we recorded the following information about you: Armaan Phyllis 07/03/2024 11:55 AM Signed Patient wanted me to contact you, nothing available for medicare wellness in 4 months, I offered to see Ruby, pt declined, next available was february. Patient wanted me to message you to see if February was okay for her to be seen. Susannah Clemente MD 07/03/2024 2:51 PM Signed Continues adjacent hospital follow-up and 1 day release on November 09 at 11:10 Helga Juan 07/05/2024 11:47 AM Signed Patient scheduled Allergies As of Date: 07/03/2024 Noted Allergy Reaction SCOPOLAMINE 10/30/2011 1 - Mental Status Change Comments: Hallucinations AMLODIPINE 03/01/2020 14 - Other: See Comments Comments: Significant swelling even on 2.5 mg per day. ARB-ANGIOTENSIN RECEPTOR ANTAGONI*11/16/2023 15 - Contraindication-Medical [place]* Comments: Bright, hyperkalemia HCTZ (THIAZIDES) 12/15/2019 15 - Contraindication-Medical [place]* [...] - GI Upset Comments: constipation Date Reviewed: 07/03/2024 Reviewed by: Susannah Clemente MD - Fully Assessed Reason for Visit: Patient Question [2357] Cmt: Nothing was available for medicare wellness until February, AVS said to see in 4 months, offered patient to schedule with Ruby, she did not want to, wanted to know if scheduling her for February was okay with you? She asked me to send this to you. Prescriptions as of 07/05/2024 - dapagliflozin propanediol (FARXIGA) 5 mg tablet Take 1 tablet by mouth daily with breakfast. - levothyroxine (SYNTHROID) 88 mcg tablet Take 1 tablet by mouth once daily. - famotidine (PEPCID) 20 mg tablet Take 1 tablet by mouth once daily as needed. - cloNIDine TTS (CATAPRES-TTS) 0.1 mg/24 hr Apply 1 Patch as directed one time a week. - labetalol (TRANDATE) 200 mg tablet Take 1 tablet by mouth two times a day. - indapamide (LOZOL) 1.25 mg tablet Take 1 tablet by mouth once daily. - minoxidil (LONITEN) 2.5 mg tablet 1 TABLET DAILY - ketoconazole (NIZORAL) 2 % shampoo Use to wash face and scalp two times a week. Lather and leave in for 3-5 minutes before rinsing. - furosemide (LASIX) 20 mg tablet Take 1 tablet by mouth every Wednesday,Wednesday,Wednesday (0600). - MULTIVITAMIN ORAL Take 1 tablet by mouth once daily. - Melatonin 5 mg cap Take 1 capsule by mouth at bedtime as needed. - biotin 5 mg tab Take 5 mg by mouth once daily. Meds Comments as of 10/05/2022: Problem List As Of Date 07/03/2024 Noted Resolved Hypertensive heart and chronic kidney [...] Bcc L cheek 02/22 [C44.319] 04/24/2008 MAMMOGRAPHIC MICROCALCIFICATION [R92.0] 05/09/2008 Unspecified hypertrophic and atrophic condition*06/14/2008 08/12/2015 Scar condition and fibrosis of skin [L90.5] 06/14/2008 08/12/2015 CKD (chronic kidney disease) stage 3, GFR 30-59*05/20/2010 01/08/2023 Hair loss [L65.9] 06/18/2010 09/19/2020 Thyroid disorder [E07.9] 06/18/2010 09/19/2020 Hypothyroid [E03.9] 05/21/2011 09/21/2013 Visit for gynecologic examination [Z01.419] 10/05/2011 09/19/2020 hx of low vitamin D treated [E55.9] 08/18/2007 Right Breast Cancer [C50.919] 10/13/2011 03/2 (more content not included)... Normal [facility] ECG COMPLETEon 07-03-2024 Atrial Rate 68 BPM [facility] Calculated P [place] 65 degrees [facility] Calculated [place] 46 degrees [facility] Calculated T [place] 62 degrees [facility] P-R Interval 172 ms [facility] QRS Duration 80 ms [facility] QT Interval 402 ms [facility] QTC Calculation (Bazett) 427 ms [facility] Ventricular Rate 68 BPM [facility] NORMAL SINUS RHYTHM POSSIBLE LEFT ATRIAL ENLARGEMENT BORDERLINE ECG Confirmed by JOSÉ MIGUEL PEREZ MD ([id number]) on 07/03/2024 3:08:37 PM [facility] NAME : ZENAIDA EVANS PID : [id number] : 1935 Gender : Female Race : ORD : Procedure Date : Jul 03 2024 10:54:36 Edit Date : Jul 03 2024 15:08:42 Diagnosis: NORMAL SINUS RHYTHM POSSIBLE LEFT ATRIAL ENLARGEMENT BORDERLINE ECG Confirmed by JOSÉ MIGUEL PEREZ MD ([id number]) on 07/03/2024 3:08:37 PM Test Reason : Location : 156 : BRU Overread By : JOSÉ MIGUEL PEREZ MD Edited By : JOSÉ MIGUEL PEREZ MD Referred By : DR CLEMENTE, Acquired by : , [facility] [id number] 07-03-2024 ECG01 Ventricular Rate : 6 8 BPM Atrial Rate : 68 BPM P-R Interval : 172 ms QRS Duration : 80 ms Q-T Interval : 402 ms QTC Calculation(Bazett) : 427 ms Calculated P [place] : 65 degrees Calculated R [place] : 46 degrees Calculated T [place] : 62 degrees NORMAL SINUS RHYTHM POSSIBLE LEFT ATRIAL ENLARGEMENT BORDERLINE ECG Confirmed by JOSÉ MIGUEL PEREZ MD ([id number]) on 07/03/2024 3:08:37 PM NAME : ZENAIDA EVANS PID : [id number] : 1935 Gender : Female Race : ORD : Procedure Date : Jul 03 2024 10:54:36 Edit Date : Jul 03 2024 15:08:42 Diagnosis: NORMAL SINUS RHYTHM POSSIBLE LEFT ATRIAL ENLARGEMENT BORDERLINE ECG Confirmed by JOSÉ MIGUEL PEREZ MD ([id number]) on 07/03/2024 3:08:37 PM Test Reason : Location : 156 : BRUFM Overread By : JOSÉ MIGUEL PEREZ MD Edited By : JOSÉ MIGUEL PEREZ MD Referred By : DR CLEMENTE, Acquired by : SS, Olga [facility] Bacteria Ur Culton 4 Bacteria identified Cx Nom (U) ORGANISM ID: 1 >=100,000 CFU/ml Proteus mirabilis ORGANISM ID: 1 (PROTEUS MIRABILIS) ------ ANTIBIOTIC INTERPRETATION CHARLIE STATUS REFERENCE RANGE ------ Ampicillin S <=2 F Susceptible <=8 , Intermediate >8 , Resistant >16 Cefazolin S <=4 F Susceptible 0-16 , Intermediate <0 or >16 , Resistant >16 For uncomplicated urinary tract infections, cefazolin results can be used to predict susceptibility or resistance to cephalexin. Ceftriaxone S <=1 F Susceptible <=1 , Intermediate >1 , Resistant >=4 Cefepime S <=1 F Susceptible <=2 , Susceptible-Dose Dependent >2 , Resistant >=16 Ertapenem S <=0.5 F Susceptible <=0.5 , Intermediate >.5 , Resistant >1 Meropenem S <=0.25 F Susceptible <=1 , Intermediate >1 , Resistant >2 Ampicillin/Sulbact S <=2 F Susceptible <=8 , Intermediate >8 , Resistant >16 Piperacillin/Tazobac S <=4 F Susceptible <16 , Susceptible-Dose Dependent >=16 , Resistant >=32 Gentamicin S <=1 F Susceptible <=2 , Intermediate >2 , Resistant >=8 Tobramycin S <=1 F Susceptible <4 , Intermediate >=4 , Resistant >=8 Trimeth sulfameth S <=20 F Susceptible <=40 , Resistant >40 Ciprofloxacin S <=0.25 F Susceptible <0.5 , Intermediate >=.5 , Resistant >=1 Nitrofurantoin R 128 F Susceptible <=32 , Intermediate >32 , Resistant >64 Abnormal [facility] Comment on above: Performed By: #### 6 30-4 ####[facility] LABCLIA [id number] [place] [id number] [facility] CNOVon 06-26-2024 CNOV Office Visit (UCWSTR ) ZENAIDA EVANS ([id number]) 1935 F Date Time Provider Department 06/26/24 4:00 PM EMILEE CRUMP [facility] During your visit today, we recorded the following information about you: Temperature Pulse Respiration Blood pressure 97.4 degrees 78/minute 16/minute 132/78 Weight 60.8 kg Emilee Crump, MANAGER PROJECT.[employer] ASSEMBLER 06/26/2024 3:56 PM Signed Urinary Problem-When to Seek Help? Symptoms of a urinary problem may lead to a bladder infection. Women are at greater risk of a urinary tract infection than are men. Most urinary tract infections in women are caused by bacteria and involve the lower urinary tract including the bladder and urethra. Symptoms: Pain or burning when passing urine, urgency, frequency, blood in the urine, difficult emptying your bladder, and lower abdominal fullness or pressure. Common Causes: Sexual intercourse, menopause, constipation, uncontrolled diabetes, dehydration and feminine products such as tampons, and kidney stones. When to Get Help: Seek medical attention if you get frequent bladder infections, urinary concerns such as leakage, blood in the urine or frequent need to urinate. You may be recommended to get help from a specialist, such as a urologist. Diagnosis AND Treatment: Lab testing may include: urinalysis, and urine culture that can be collected in the lab or walk-in clinic. Most bladder infections can easily be treated. A physician, nurse practitioner or physician transport assistant may treat with a short course of an antibiotic. Delaying treatment can lead to worsening symptoms, like a kidney infection. Self-Care: Avoid a full bladder, bubble baths, bath oils, food and beverages that may irritate the bladder such as caffeine. Avoid spermicide foam and diaphragms Void before and after sexual intercourse Wipe front to back after using the bathroom. Stay hydrated Stop Smoking Follow-up Care: Follow up testing is not needed in healthy young women if symptoms resolve. Emilee Crump, MANAGER PROJECT.[employer] ASSEMBLER 06/26/2024 4:09 PM Signed Patient presents with: Urinary Frequency: burning with urination x 1 day, took azo 89 year old female presents with 1 day(s) of dysuria, frequency, and urgency. Denies fever chills, nausea, and vomiting. Took azo with moderate relief. Review of Systems Constitutional: Negative for chills, fever, malaise/fatigue and weight loss. Gastrointestinal: Negative for constipation, diarrhea, nausea and vomiting. Genitourinary: Positive for dysuria and frequency. Negative for flank pain, hematuria and urgency. Neurological: Negative for dizziness and headaches. Physical Exam Vitals and nursing note reviewed. Constitutional: General: She is not in acute distress. Cardiovascular: Rate and Rhythm: Normal rate and regular rhythm. Heart sounds: Normal heart sounds. Pulmonary: Effort: Pulmonary effort is normal. No respiratory distress. Breath sounds: Normal breath sounds. No wheezing or rales. Abdominal: Tenderness: There is no abdominal tenderness. There is no right CVA tenderness or left CVA tenderness. Neurological: Mental Status: She is alert and oriented to person, place, and time. ASSESSMENT/PLAN: 1. Urinary frequency - ICD9: 788.41, ICD10: R35.0 acute - UA positive for , glucose (takes farxiga), laine esterase, hematuria, proteinuria, and nitrates - Send urine for culture - Begin treatment with cephalexin for 7 days - Patient education for prevention given - UA DIP, URINE (POC) - URINE CULTURE - advised will only call if change in therapy is required. Emilee Crump Allergies As of Date: 06/26/2024 Noted Allergy Reaction SCOPOLAMINE 10/30/2011 1 - Mental Status Change Comments: Hallucinations AMLODIPINE 03/01/2020 14 - Other: See Comments Comments: Significant swelling even on 2.5 mg per day. ARB-ANGIOTENSIN RECEPTOR ANTAGONI*11/16/2023 15 - Contraindication-Medical [place]* Comments: Bright, hyperkalemia HCTZ (THIAZIDES) 12/15/2019 15 - Contraindication-Medical [place]* [...] - GI Upset Comments: constipation Date Reviewed: 06/26/2024 Reviewed by: Helga Chavez MA - Fully Assessed Reason for Visit: Urinary Frequency [1086] Cmt: burning with urination x 1 day, took azo Primary Visit Diagnosis:Urinary frequency [R35.0] Order(s):UA DIP, URINE (POC) [[id number]] Order #: [id number] (more content not included)... Normal [facility] UA DIP, URINE (POC)on 2023 BILIRUBIN UA (POCT) Negative Negative [facility] CLARITY UA (POCT) Cloudy [facility] COLOR UA (POCT) Dark yellow [facility] GLUCOSE UA (POCT) 250 mg/dL Abnormal Negative [facility] Hemoglobin Ql (U) Moderate Abnormal Negative [facility] Interpretation and review of laboratory results Abnormal [facility] KETONE UA (POCT) Negative Negative mg/dL [facility] LEUKOCYTES UA (POCT) Small Abnormal Negative [facility] NITRITE UA (POCT) Positive Abnormal Negative [facility] PH UA (POCT) 7.0 4.5 - 8.0 [facility] Protein Ql (U) 30 mg/dL Abnormal Negative [facility] SPECIFIC GRAVITY UA (POCT) 1.020 1.005 - 1.030 [facility] UROBILINOGEN UA (POCT) 1.0 Ophelia l E.U./dL [facility] Location:[facility], [address] [place] [address], [place], [place], [id number] [place] [address] POINT OF CARE [facility] Basic metabolic 2000 panelon 06-24-2024 Anion gap [Moles/Vol] 11 mmol/L Normal 8-15 [facility] Comment on above: Order Comment: Speci men Type: BLOOD SPECIMENOrdering Facility: [facility] Address: [address] [place] [address] Performed By: #### 2 4331-1, 98379-2 ####[facility] LABIA [id number] [place] [address] [place] Calcium [Mass/Vol] 9.6 mg/dL Normal 8.5-10.2 [facility] Comment on above: Order Comment: Speci men Type: BLOOD SPECIMENOrdering Facility: [facility] Address: [address] [place] [address] Performed By: #### 2 4331-1, 78420-1 ####[facility] LABIA [id number] [place] [address] [place] Chloride [Moles/Vol] 106 mmol/L Normal 98-107 [facility] Comment on above: Order Comment: Speci men Type: BLOOD SPECIMENOrdering Facility: [facility] Address: [address] [place] [address] Performed By: #### 2 4331-1, 68130-6 ####[facility] LABCLIA [id number] [place] [id number] [place] CO2 [Moles/Vol] 27 mmol/L Normal 22-30 [facility] Comment on above: Order Comment: Speci men Type: BLOOD SPECIMENOrdering Facility: [facility] Address: [address] [place], [place] [address] Performed By: #### 2 4331-1, 97882-8 ####[facility] LABCLIA [id number] [address] [address] [place] Creatinine [Mass/Vol] 1.34 mg/dL High 0.58-0.96 [facility] Comment on above: Order Comment: Specmickie pablo Type: BLOOD SPECIMENOrdering Facility: [facility] Address: [address] [place] [address] Performed By: #### 2 4331-1, 72193-0 ####[facility] LABIA [id number] [place] [address] [place] Creatinine and Glomerular filtration rate.predicted panel (S/P/Bld) 38 mL/min/1.73m??? Low >=60 [facility] Comment on above: Order Comment: [facility] Type: BLOOD SPECIMENOrdering Facility: [facility] Address: [address] [place] [address] Result Comment: Shanon mated Glomerular Filtration Rate (eGFR) is calculated using the 2020 CKD-EPI creatinine equation. This equation utilizes serum creatinine, sex, and age as parameters. The creatinine assay has traceable calibration to isotope dilution-mass spectrometry. Refer to KDIGO guidelines for clinical interpretation. In patients with unstable renal function, e.g. those with acute kidney injury, the eGFR may not accurately reflect actual GFR. Performed By: #### 2 4331-1, 69144-3 ####[facility] LABIA [id number] [place] [id number] [place] Glucose [Mass/Vol] 100 mg/dL High 74-99 [facility] Comment on above: Order Comment: Speci men Type: BLOOD SPECIMENOrdering Facility: [facility] Address: [address] [place] [address] Result Comment: The [place] Diabetes Association (ADA) provides guidance for cutoff values for fasting glucose and random glucose. The ADA defines fasting as no caloric intake for at least 8 hours. Fasting plasma glucose results between 100 to 125 mg/dL indicate increased risk for diabetes (prediabetes). Fasting plasma glucose results greater than or equal to 126 mg/dL meet the criteria for diagnosis of diabetes. In the absence of unequivocal hyperglycemia, results should be confirmed by repeat testing. In a patient with classic symptoms of hyperglycemia or hyperglycemic crisis, random plasma glucose results greater than or equal to 200 mg/dL meet the criteria for diagnosis of diabetes. Reference: Standards of Medical Care in Diabetes 2016, [place] Diabetes Association. Diabetes Care. 2016.39(Suppl 1). Performed By: #### 2 4331-1, 72368-4 ####[facility] LABCLIA [id number] [place] [address] [place] Potassium [Moles/Vol] 4.6 mmol/L Normal 3.7-5.1 [facility] Comment on above: Order Comment: Lului men Type: BLOOD SPECIMENOrdering Facility: [facility] Address: [address] [place] [address] Performed By: #### 2 4331-, 71462-1 ####[facility] LABIA [id number] [place] [address] [place] Sodium [Moles/Vol] 144 mmol/L Normal 136-144 [facility] Comment on above: Order Comment: Ledy pablo Type: BLOOD SPECIMENOrdering Facility: [facility] Address: [address] [place] [address] Performed By: #### 2 4331-1, 57858-9 ####[facility] LABIA [id number] [place] [address] [place] Urea nitrogen [Mass/Vol] 30 mg/dL High 7-21 [facility] Comment on above: Order Comment: Lului men Type: BLOOD SPECIMENOrdering Facility: [facility] Address: [address] [place] [address] Performed By: #### 2 4331-1, 92428-3 ####[facility] LABIA [id number] [place] [address] [place] CBC W Auto Differential pane l (Bld)on 06-24-2024 Basophils (Bld) [#/Vol] 0.03 10*3/uL Normal <0.11 [facility] Comment on above: Order Comment: Speci men Type: BLOOD SPECIMENOrdering Facility: [facility] Address: [address] [place] [address] Performed By: #### 5 7021-8 ####[facility] LABCLIA [id number] [place] [address] [place] Basophils/100 WBC (Bld) 0.5 % Normal [facility] Comment on above: Order Comment: Speci men Type: BLOOD SPECIMENOrdering Facility: [facility] Address: [address] [place] [address] Performed By: #### 5 7021-8 ####[facility] LABCLIA [id number] [place] [address] [place] Differential cell count method Nom (Bld) Auto Normal [facility] Comment on above: Order Comment: Speci men Type: BLOOD SPECIMENOrdering Facility: [facility] Address: [address] [place] [address] Performed By: #### 5 7021-8 ####[facility] LABCLIA [id number] [place] [address] [place] Eosinophils (Bld) [#/Vol] 0.17 10*3/uL Normal <0.46 [facility] Comment on above: Order Comment: Speci men Type: BLOOD SPECIMENOrdering Facility: [facility] Address: [address] [place] [address] Performed By: #### 5 7021-8 ####[facility] LABCLIA [id number] [place] [address] [place] Eosinophils/100 WBC (Bld) 3.0 % Normal [facility] Comment on above: Order Comment: Speci men Type: BLOOD SPECIMENOrdering Facility: [facility] Address: [address] [place] [address] Performed By: #### 5 7021-8 ####[facility] LABCLIA [id number] [place] [address] [place] Erythrocyte distribution width (RBC) [Ratio] 12.5 % Normal 11.5-15.0 [facility] Comment on above: Order Comment: Speci men Type: BLOOD SPECIMENOrdering Facility: [facility] Address: [address] [place] [address] Performed By: #### 5 7021-8 ####[facility] LABCLIA [id number] [place] [address] [place] Hematocrit (Bld) [Volume fraction] 35.9 % Low 36.0-46.0 [facility] Comment on above: Order Comment: Speci men Type: BLOOD SPECIMENOrdering Facility: [facility] Address: [address] [place] [address] Performed By: #### 5 7021-8 ####[facility] LABIA [id number] [place] [address] [place] Hemoglobin (Bld) [Mass/Vol] 11.3 g/dL Low 11.5-15.5 [facility] Comment on above: Order Comment: Speci men Type: BLOOD SPECIMENOrdering Facility: [facility] Address: [address] [place] [address] Performed By: #### 5 7021-8 ####[facility] LABIA [id number] [place] [address] [place] Immature granulocytes (Bld) [#/Vol] 10*3/uL Normal <0.10 [facility] Comment on above: Order Comment: Speci men Type: BLOOD SPECIMENOrdering Facility: [facility] Address: [address] [place] [address] Performed By: #### 5 7021-8 ####[facility] LABIA [id number] [place] [address] [place] Immature granulocytes/100 WBC (Bld) 0.4 % Normal [facility] Comment on above: Order Comment: Speci men Type: BLOOD SPECIMENOrdering Facility: [facility] Address: [address] [place] [address] Performed By: #### 5 7021-8 ####[facility] LABCLIA [id number] [place] [address] [place] Lymphocytes (Bld) [#/Vol] 2.24 10*3/uL Normal 1.00-4.00 [facility] Comment on above: Order Comment: Speci men Type: BLOOD SPECIMENOrdering Facility: [facility] Address: [address] [place] [address] Performed By: #### 5 7021-8 ####[facility] LABCLIA [id number] [place] [address] [place] Lymphocytes/100 WBC (Bld) 39.6 % Normal [facility] Comment on above: Order Comment: Speci men Type: BLOOD SPECIMENOrdering Facility: [facility] Address: [address] [place] [address] Performed By: #### 5 7021-8 ####[facility] LABCLIA [id number] [place] [address] [place] MCH (RBC) [Entitic mass] 31.3 pg Normal 26.0-34.0 [facility] Comment on above: Order Comment: Speci men Type: BLOOD SPECIMENOrdering Facility: [facility] Address: [address] [place] [address] Performed By: #### 5 7021-8 ####[facility] LABCLIA [id number] [place] [address] [place] MCHC (RBC) [Mass/Vol] 31.5 g/dL Normal 30.5-36.0 [facility] Comment on above: Order Comment: Speci men Type: BLOOD SPECIMENOrdering Facility: [facility] Address: [address] [place] [address] Performed By: #### 5 7021-8 ####[facility] LABCLIA [id number] [place] [address] [place] MCV (RBC) [Entitic vol] 99.4 fL Normal 80.0-100.0 [facility] Comment on above: Order Comment: Speci men Type: BLOOD SPECIMENOrdering Facility: [facility] Address: [address] [place] [address] Performed By: #### 5 7021-8 ####[facility] LABCLIA [id number] [place] [address] [place] Monocytes (Bld) [#/Vol] 0.83 10*3/uL Normal <0.87 [facility] Comment on above: Order Comment: Speci men Type: BLOOD SPECIMENOrdering Facility: [facility] Address: [address] [place] [address] Performed By: #### 5 7021-8 ####[facility] LABCLIA [id number] [place] [address] [place] Monocytes/100 WBC (Bld) 14.7 % Normal [facility] Comment on above: Order Comment: Speci men Type: BLOOD SPECIMENOrdering Facility: [facility] Address: [address] [place] [address] Performed By: #### 5 7021-8 ####[facility] LABCLIA [id number] [place] [address] [place] Neutrophils (Bld) [#/Vol] 2.37 10*3/uL Normal 1.45-7.50 [facility] Comment on above: Order Comment: Speci men Type: BLOOD SPECIMENOrdering Facility: [facility] Address: [address] [place] [address] Performed By: #### 5 7021-8 ####[facility] LABCLIA [id number] [place] [address] [place] Neutrophils/100 WBC (Bld) 41.8 % Normal [facility] Comment on above: Order Comment: Speci men Type: BLOOD SPECIMENOrdering Facility: [facility] Address: [address] [place] [address] Performed By: #### 5 7021-8 ####[facility] LABCLIA [id number] [place] [address] [place] Nucleated RBC (Bld) [#/Vol] 10*3/uL Normal <0.01 [facility] Comment on above: Order Comment: Speci men Type: BLOOD SPECIMENOrdering Facility: [facility] Address: [address] [place] [address] Performed By: #### 5 7021-8 ####[facility] LABCLIA [id number] [place] [address] [place] Nucleated RBC/100 WBC (Bld) [Ratio] 0.0 /100 WBC Normal [facility] Comment on above: Order Comment: Speci men Type: BLOOD SPECIMENOrdering Facility: [facility] Address: [address] [place] [address] Performed By: #### 5 7021-8 ####[facility] LABCLIA [id number] [place] [address] [place] Platelet mean volume (Bld) [Entitic vol] 10.8 fL Normal 9.0-12.7 [facility] Comment on above: Order Comment: Speci men Type: BLOOD SPECIMENOrdering Facility: [facility] Address: [address] [place] [address] Performed By: #### 5 7021-8 ####[facility] LABCLIA [id number] [place] [address] [place] Platelets (Bld) [#/Vol] 172 10*3/uL Normal 150-400 [facility] Comment on above: Order Comment: Speci men Type: BLOOD SPECIMENOrdering Facility: [facility] Address: [address] [place] [address] Performed By: #### 5 7021-8 ####[facility] LABCLIA [id number] [place] [address] [place] RBC (Bld) [#/Vol] 3.61 10*6/uL Low 3.90-5.20 [facility] Comment on above: Order Comment: Speci men Type: BLOOD SPECIMENOrdering Facility: [facility] Address: [address] [place] [address] Performed By: #### 5 7021-8 ####[facility] LABIA [id number] [place] [address] [place] WBC (Bld) [#/Vol] 5.66 10*3/uL Normal 3.70-11.00 [facility] Comment on above: Order Comment: Speci men Type: BLOOD SPECIMENOrdering Facility: [facility] Address: [address] [place] [address] Performed By: #### 5 7021-8 ####[facility] LABIA [id number] [place] [address] [place] Lipid 1996 panelon 4 Cholesterol [Mass/Vol] 194 mg/dL Normal <200 [facility] Comment on above: Order Comment: Speci men Type: BLOOD SPECIMENOrdering Facility: [facility] Address: [address] [place] [address] Result Comment: <200 mg/dL, Desirable 200-239 mg/dL, Borderline high >239 mg/dL, High Performed By: #### 2 4331-1, 57282-0 ####[facility] LABIA [id number] [place] [address] [place] Cholesterol in HDL [Mass/Vol] 78 mg/dL Normal >39 [facility] Comment on above: Order Comment: Speci men Type: BLOOD SPECIMENOrdering Facility: [facility] Address: [address] [place] [address] Result Comment: 40-5 9 mg/dL, Acceptable >59 mg/dL, High: Negative risk factor for coronary heart disease <40 mg/dL, Low: Positive risk factor for coronary heart disease Performed By: #### 2 4331-1, 46171-8 ####[facility] LABCLIA [id number] [place] [address] [place] Cholesterol in LDL [Mass/Vol] 99 mg/dL Normal <100 [facility] Comment on above: Order Comment: Speci men Type: BLOOD SPECIMENOrdering Facility: [facility] Address: [facility] [place] [address] Result Comment: <100 mg/dL, Optimal 100-129 mg/dL, Near optimal/above optimal 130-159 mg/dL, Borderline high 160-189 mg/dL, High >189 mg/dL, Very high Secondary prevention optimal LDL Cholesterol levels are recommended to be < 70 mg/dL Performed By: #### 2 433-1, 52945-6 ####[facility] LABCLIA [id number] [place] [address] [place] Cholesterol in LDL/Cholesterol in HDL [Mass ratio] 1.27 {ratio} Normal <2.54 [facility] Comment on above: Order Comment: Speci men Type: BLOOD SPECIMENOrdering Facility: [facility] Address: [address] [place] [address] Result Comment: Refe rence: 1. National Cholesterol Education Program ATP III Guideline At-A-Glance Quick Desk Reference: National Heart, Lung, and Blood [place]. National Institutes of Health. 2001: NIH Publication No. 01-3305. 2. An International Atherosclerosis Society position paper: global recommendations for the management of dyslipidemia: executive summary, Atherosclerosis. 2014: 232(2):410-413. Performed By: #### 2 4331-1, 00930-8 ####[facility] LABCLIA [id number] [place] [address] [place] Cholesterol in VLDL [Mass/Vol] 17 mg/dL Normal <30 [facility] Comment on above: Order Comment: Speci men Type: BLOOD SPECIMENOrdering Facility: [facility] Address: [address] [place] [address] Performed By: #### 2 4331-1, 94858-2 ####[facility] LABCLIA [id number] [address] [address] [place] Cholesterol non HDL [Mass/Vol] 116 mg/dL Normal <130 [facility] Comment on above: Order Comment: Speci men Type: BLOOD SPECIMENOrdering Facility: [facility] Address: [address] [place] [address] Result Comment: <130 mg/dL, Optimal 130-159 mg/dL, Near optimal/above optimal 160-189 mg/dL, Borderline high 190-219 mg/dL, High >219 mg/dL, Very high Secondary prevention optimal non HDL Cholesterol levels are recommended to be <100 mg/dL Performed By: #### 2 433-1, 29036-4 ####[facility] LABCLIA [id number] [place] [address] [place] Cholesterol.total/Chol esterol in HDL [Mass ratio] 2.49 {ratio} Normal <5.10 [facility] Comment on above: Order Comment: Speci men Type: BLOOD SPECIMENOrdering Facility: [facility] Address: [address] [place] [address] Performed By: #### 2 4331-1, 86721-0 ####[facility] LABCLIA [id number] [place] [address] [place] FASTING TIME 12 hrs Normal [facility] Comment on above: Order Comment: Speci men Type: BLOOD SPECIMENOrdering Facility: [facility] Address: [address] [place] [id number] Performed By: #### 2 4331-1, 91794-5 ####[facility] LABCLIA [id number] [place] [address] [place] Triglyceride [Mass/Vol] 84 mg/dL Normal <150 [facility] Comment on above: Order Comment: Speci men Type: BLOOD SPECIMENOrdering Facility: [facility] Address: [address] [place] [address] Result Comment: <150 mg/dL, Normal 150-199 mg/dL, Borderline high 200-499 mg/dL, High >499 mg/dL, Very high Performed By: #### 2 4331-1, 12807-1 ####[facility] LABCLIA [id number] [id number] [facility] CNOVon 06-11-2024 CNOV Office Visit (UCWSTR ) ZENAIDA EVANS ([id number]) 1935 F Date Time Provider Department 06/11/24 12:30 PM KELSI ZAVALA [facility] During your visit today, we recorded the following information about you: Temperature Pulse Respiration Blood pressure 97.1 degrees 70/minute 20/minute 176/85 Weight 59 kg Kelsi Zavala APRN.CNP 06/11/2024 1:28 PM Signed This note was created using NoteWriter. Subjective Zenaidamora Evans is a 89 year old female. Reviewed pertient PMH: CKD stage 3, HTN 89 year female presenting with rash x1 week Acute onset x1 week Pt presents today with a rash that started 1 week ago. Pt states she noticed bites on her right inner elbow and left arm that were itchy and burning. Pt states she feels like the rash is improving on the right arm, but is worsening on the left arm. She is having increasing pain, redness and swelling in the left arm that she feels has become deeper. She denies any changes in body wash, lotions, detergents, new food or new medications. She attempted to put Vitamin E oil and neosporin cream on the bites without any relief. She denies nausea, vomiting, fatigue, fever, shortness of breath, headache and chest pain. The history is provided by the patient. No english language learner tutor was used. Rash This is a new problem. The current episode started in the past 7 days. The problem has been gradually worsening since onset. The affected locations include the left arm and right arm. The rash is characterized by redness, pain, swelling, itchiness and burning. It is unknown if there was an exposure to a precipitant. Pertinent negatives include no congestion, cough, diarrhea, eye pain, fatigue, fever, rhinorrhea, shortness of breath, sore throat or vomiting. Treatments tried: neosporin. The treatment provided no relief. Her past medical history is significant for allergies. There is no history of asthma, eczema or varicella. PAST MEDICAL HISTORY 09/2011: Breast cancer (HCC) Comment: seeing Dr Nina moraes ER positive s/p surgery/radiation and AI 07/30/2017: Collagenous colitis Comment: On biopsy 2012. No date: Diarrhea Comment: hx of colitis No date: Diffuse cystic mastopathy No date: Dyspareunia No date: Essential hypertension 03/13/2011: H/O complete eye exam Comment: no retinopathy detected -both eyes - [facility] - return in 1 year - Dr. Ruby No date: hair thinning Comment: sees Dr Choudhary 1974-present: Hormone replacement therapy (HRT) Comment: stopped by 09/2011: hx of low vitamin D treated Comment: 20.4 recheck only 23 06/25 improved to 54 No date: PMH - PAST MEDICAL HISTORY OF Comment: cardiac arrhythmia- resolved with change in medication 11/22/2019: Stage 3 chronic kidney disease (HCC) 1975: Symptomatic states associated with artificial menopause Comment: THBSO for fibroids age 40 08/2015: Vaginal atrophy Comment: offered vag DHEA No date: Vaginismus Comment: for PT PAST SURGICAL HISTORY No date: APPENDECTOMY 04/16/2009: BREAST BIOPSY CORE Comment: right breast stereo core biopsy 04/02/2008: BX BREAST NEEDLE CORE W/O IMAGING GUIDANCE SPX Comment: right breast stereo core biopsy 10/30/2011: BX/EXC LYMPH NODE OPEN DEEP AXILLARY NODE Comment: Right NL PM/SLNs 09/04, 12/06: CATARACT EXTRACTION HX; Bilateral 09/08/2013: COLONOSCOPY FLX DX W/COLLJ SPEC WHEN PFRMD Comment: Colonoscopy 10/30/2011: MASTECTOMY, PARTIAL; Right Comment: Right NL PM/SLNs No date: PAST SURGICAL HISTORY OF Comment: bilat vein stripping 1990: PAST SURGICAL HISTORY OF; Left Comment: left breast Atypical hyperplasia No date: PAST SURGICAL HISTORY OF Comment: excision skin cancer 11/2020: S FINGER JOINT IMPLANT [id number]; Left Comment: Candace Marmolejo left thumb joint replacement early : TOTAL ABDOMINAL HYSTERECT W/WO RMVL TUBE OVARY Comment: Hysterectomy, CAROL, due to fibroids. ALLERGIES Scopolamine, Amlodipine, Arb-Angiotensin Receptor Antagonist, Hctz [Thiazides], Hydralazine, Iron, Jardiance [Empagliflozin], Lipitor [Atorvastatin], Losartan, Spironolactone, Talwin [Pentazocine Lactate], and Verapamil Hcl MEDICATIONS levothyroxine (SYNTHROID) 88 mcg tablet Take 1 tablet by mouth once daily. ondansetron orally disintegrating (ZOFRAN ODT) 4 mg disintegrating tablet dissolve 1 tablet in mouth every 8 hours as needed for nausea famotidine (PEPCID) 20 mg tablet Take 1 tablet by mouth once daily as needed. cloNIDine TTS (CATAPRES-TTS) 0.1 mg/24 hr Apply 1 Patch as directed one time a week. dapagliflozin propanediol (FARXIGA) 10 mg tablet Take 1 tablet by mouth daily with breakfast. (Patient taking differently: Take 5 mg by mouth daily with breakfast.) labetalol (TRANDATE) 200 mg tablet Take 1 tablet by mouth two times a day. indapamide (LOZOL) 1.25 mg tablet Take 1 tablet by mouth once daily. minoxidil (LONITEN) 2.5 (more content not included)... Normal [facility] Laurita 04-10-2024 CNPN Telephone (INTMBR) ZENAIDA EVANS ([id number]) 1935 F Date Time Provider Department 04/10/24 SUSANNAH CLEMENTE During your visit today, we recorded the following information about you: Blood pressure 120/58 Susannah Clemente MD 04/10/2024 12:40 PM Signed Updated vitals. Allergies As of Date: 04/10/2024 Noted Allergy Reaction SCOPOLAMINE 10/30/2011 1 - Mental Status Change Comments: Hallucinations AMLODIPINE 03/01/2020 14 - Other: See Comments Comments: Significant swelling even on 2.5 mg per day. ARB-ANGIOTENSIN RECEPTOR ANTAGONI*11/16/2023 15 - Contraindication-Medical [place]* Comments: Bright, hyperkalemia HCTZ (THIAZIDES) 12/15/2019 15 - Contraindication-Medical [place]* [...] - GI Upset Comments: constipation Date Reviewed: 03/30/2024 Reviewed by: Scarlet Garcia MA - Fully Assessed Prescriptions as of 04/10/2024 - famotidine (PEPCID) 20 mg tablet Take 1 tablet by mouth once daily as needed. - cloNIDine TTS (CATAPRES-TTS) 0.1 mg/24 hr Apply 1 Patch as directed one time a week. - dapagliflozin propanediol (FARXIGA) 10 mg tablet Take 1 tablet by mouth daily with breakfast. - labetalol (TRANDATE) 200 mg tablet Take 1 tablet by mouth two times a day. - ondansetron orally disintegrating (ZOFRAN ODT) 4 mg disintegrating tablet dissolve 1 tablet in mouth every 8 hours as needed for nausea - levothyroxine (SYNTHROID) 88 mcg tablet Take 1 tablet by mouth once daily. - indapamide (LOZOL) 1.25 mg tablet Take 1 tablet by mouth once daily. - minoxidil (LONITEN) 2.5 mg tablet 1 TABLET DAILY - ketoconazole (NIZORAL) 2 % shampoo Use to wash face and scalp two times a week. Lather and leave in for 3-5 minutes before rinsing. - furosemide (LASIX) 20 mg tablet Take 1 tablet by mouth every Wednesday,Wednesday,Wednesday (0600). - Ferrous Sulfate (SLOW FE) 142 mg [...] Take 5 mg by mouth once daily. Meds Comments as of 10/05/2022: Problem List As Of Date 04/10/2024 Noted Resolved Hypertensive heart and chronic kidney [...] Bcc L cheek 02/22 [C44.319] 04/24/2008 MAMMOGRAPHIC MICROCALCIFICATION [R92.0] 05/09/2008 Unspecified hypertrophic and atrophic condition*06/14/2008 08/12/2015 Scar condition and fibrosis of skin [L90.5] 06/14/2008 08/12/2015 CKD (chronic kidney disease) stage 3, GFR 30-59*05/20/2010 01/08/2023 Hair loss [L65.9] 06/18/2010 09/19/2020 Thyroid disorder [E07.9] 06/18/2010 09/19/2020 Hypothyroid [E03.9] 05/21/2011 09/21/2013 Visit for gynecologic examination [Z01.419] 10/05/2011 09/19/2020 hx of low vitamin D treated [E55.9] 08/18/2007 Right Breast Cancer [C50.919] 10/13/2011 01/08/2023 hx of breast cancer ER positive [C50.919] 09/10/2015 Stiffness in joint [M25.60] 12/02/2011 09/19/2020 Personal history of malignant neoplasm of breas*01/05/2012 Basal cell carcinoma, face [C44.310] 07/20/2012 Hypothyroidism [E03.9] 09/21/2013 Colitis [K52.9] 04/13/2014 07/30/2017 Greater trochanteric bursitis of left hip [M (more content not included)... Normal [facility] DBT Breast - bilateral scree paula 01-10-2024 * * *Final Report* * * DATE OF EXAM: Jan 07 2024 11:25AM SSW [id number] - NICOLE SCREENING W MICHELLE / PROCEDURE REASON: Encounter for screening mammogram for breast cancer * * * * Physician Interpretation * * * * RESULT: #[id number] - [facility] SCREENING W MICHELLE BILATERAL DIGITAL SCREENING MAMMOGRAM TOMOSYNTHESIS WITH CAD: 01/07/2024 HISTORY: Encounter For Screening Mammogram For Breast Cancer / Screening Mammogram-Patient reports NO symptoms. RESULT: TECHNIQUE: The study was acquired using full field digital technology and interpreted from soft copy. Digital Breast Tomosynthesis (DBT) images were obtained and used to assist in the interpretation of this examination. Current study was also evaluated with a Computer Aided Detection (CAD). Comparison is made to exams dated: 01/05/2023 mammogram, 08/18/2021 mammogram, and 07/30/2020 mammogram - [facility]. The breasts are heterogeneously dense, which may obscure small masses. There are benign post operative findings and biopsy clips in the right breast. There is a possible asymmetry in the right breast inner region seen on the craniocaudal view only. No other significant masses, calcifications, or other findings are seen in either breast. DIVISION OF RADIOLOGY Provider, [facility] - 01/10/2024 * * *Final Report* * * DATE OF EXAM: Jan 07 2024 11:25AM [facility] 0582 - [facility] SCREENING W MICHELLE / PROCEDURE REASON: Encounter for screening mammogram for breast cancer * * * * Physician Interpretation * * * * RESULT: #[id number] - [facility] SCREENING W MICHELLE BILATERAL DIGITAL SCREENING MAMMOGRAM TOMOSYNTHESIS WITH CAD: 01/07/2024 HISTORY: Encounter For Screening Mammogram For Breast Cancer / Screening Mammogram-Patient reports NO symptoms. RESULT: TECHNIQUE: The study was acquired using full field digital technology and interpreted from soft copy. Digital Breast Tomosynthesis (DBT) images were obtained and used to assist in the interpretation of this examination. Current study was also evaluated with a Computer Aided Detection (CAD). Comparison is made to exams dated: 01/05/2023 mammogram, 08/18/2021 mammogram, and 07/30/2020 mammogram - [facility]. The breasts are heterogeneously dense, which may obscure small masses. There are benign post operative findings and biopsy clips in the right breast. There is a possible asymmetry in the right breast inner region seen on the craniocaudal view only. No other significant masses, calcifications, or other findings are seen in either breast. IMPRESSION IMPRESSION: INCOMPLETE: NEEDS ADDITIONAL IMAGING EVALUATION The possible asymmetry in the right breast is indeterminate. Additional views with possible ultrasound are recommended. Cristina cha/meghan:01/10/2024 09:51:04 Search Engine Optimization Manager(s): Stefany Donaldson RT(R)(M), [facility] letter sent: Additional Imaging Needed Mammogram BI-RADS: 0 Incomplete: needs additional imaging evaluation If this report indicates you need additional imaging, and it has NOT yet been performed, please call , to schedule. We sincerely thank you for choosing the [facility] for your breast imaging needs. Multiple national specialty organizations have released breast cancer screening guidelines for women at average risk for developing breast cancer - guidelines that are based on both evidence and opinion, yet differ on when to start and how often to screen for breast cancer. With representation from Breast Imaging, Internal Medicine, Women's Health, Family Medicine, and Medical/Surgical Oncology, the [facility] has carefully reviewed the data and reached the following consensus: 1) All women should engage in shared decision-making with their providers to decide when to start and how often to screen; 2) All women should have the opportunity to start screening mammography at age 40; 3) For women ages 45-55, we recommend annual screening mammograms; 4) For women ages 55 and over, we support both the transition from an annual to a biennial interval if this aligns more with patient's values and preferences, or continuation with annual screening; 5) All women should discuss with their providers when to stop screening mammograms. Patient Svcs Mgr: Meghan Transcribe Date/Time: Jan 07 2024 10:48A Dictated by: CRISTINA BENSON MD This examination was interpreted and the report reviewed and electronically signed by: CRISTINA BENSON MD on Jan 10 2024 9:51AM EST [facility] DBT Breast - bilateral scree ningOrdered By: Ccf Provider on 01-10-2024 [facility] DBT Breast - bilateral scree erickgon 01-07-2024 Radiology Study observation (narrative) [facility] Absolute lymphocyte countOrd ered By: Armida Mason on 11-06-2023 Lymphocytes Auto (Unsp spec) [#/Vol] 1.63 10*3/uL 0.83-4.51 [facility] Automated lymphocyte count a s percentage of total leukocytesOrdered By: Armida Mason on 11-06-2023 Lymphocytes/100 WBC Auto (Unsp spec) 23.0 % 19-41 [facility] Basophil percentageOrdered B y: Armida Mason on 11-06-2023 Basophils/100 WBC (Bld) 0.3 % 0-1 [facility] Chloride [Moles/Vol] 109 mmol/L 98-107 [facility] Eosinophils/100 WBC (Bld) 0.8 % 0-5 [facility] Glucose [Mass/Vol] 106 mg/dL 74-106 [facility] Comment on above: Fasting Glucose resu lt from 100 to 125 mg/dL suggests IMPAIRED HOMEOSTASIS per A.D.A. criteria. Hemoglobin (Bld) [Mass/Vol] 11.0 g/dL 12.0-15.0 [facility] Monocytes/100 WBC (Bld) 10.0 % 0-10 [facility] Neutrophils (Bld) [#/Vol] 4.6 10*3/uL 2.0-7.7 [facility] Neutrophils/100 WBC (Bld) 65.5 % 47-70 [facility] Potassium [Moles/Vol] 4.1 mmol/L 3.5-5.1 [facility] Sodium [Moles/Vol] 140 mmol/L 136-145 [facility] WBC (Bld) [#/Vol] 7.1 10*3/uL 4.4-11.0 [facility] Determination of erythrocyte mean corpuscular volume (MCV)Ordered By: Armida Mason on 11-06-2023 MCV (RBC) [Entitic vol] 97.7 fL 81-99 [facility] Erythrocyte distribution wid th ratioOrdered By: Armida Mason on 11-06-2023 Erythrocyte distribution width (RBC) [Ratio] 13.2 % 11.6-14.6 [facility] Erythrocyte distribution wid th standard deviationOrdered By: Armida Mason on 11-06-2023 Erythrocyte distribution width (RBC) [Entitic vol] 47.7 fL 35.1-43.9 [facility] Hematocrit Auto (Bld) [Volum e fraction]Ordered By: Armida Mason on 11-06-2023 Hematocrit (Bld) [Volume fraction] 33.9 % 37-47 [facility] Immature granulocytes/100 WB C Auto (Bld)Ordered By: Armida Mason on 11-06-2023 Immature granulocytes/100 WBC (Bld) 0.400 % 0.0-0.9 [facility] Comment on above: IG% - Immature Granu locytes (promyelocytes, myelocytes and metamyelocytes) > 1% indicates that a LEFT SHIFT is Present. Laboratory - Chemistry and C hemistry - challengeOrdered By: Armida Mason on 11-06-2023 CO2 [Moles/Vol] 27.0 mmol/L 21.0-32.0 [facility] Urea nitrogen/Creatinine [Mass ratio] 23.6 mg/mg 10-20 [facility] Laboratory - Hematology and Cell countsOrdered By: Armida Mason on 11-06-2023 MCH (RBC) [Entitic mass] 31.7 pg 27.0-32.0 [facility] MCHC (RBC) [Mass/Vol] 32.4 g/dL 32-36 [facility] Nucleated RBC/100 WBC (Bld) [Ratio] 0 % 0-5 [facility] Platelets (Bld) [#/Vol] 225 10*3/uL 150-450 [facility] Laboratory - Microbiology an d Antimicrobial susceptibilityOrdered By: Armida Mason on 11-06-2023 SARS-CoV-2 (COVID-19) RNA KOKO+probe Ql (Unsp spec) [facility] No Panel InformationOrdered By: Armida Mason on 11-06-2023 Estimated Creatinine Clearance Calc 26.50 ml/min [facility] Estimated GFR (MDRD) Amer 46 mL/min >60 [facility] Comment on above: GFR Calc Estimated GFR (MDRD) Non-Af Amer 38 mL/min >60 [facility] Comment on above: Non- GFR Calc Troponin I High Sensitivity 10 pg/mL 3.0-54.0 [facility] Comment on above: Please Note: New Neli t Units and Gender Specific Reference Ranges. For more information see Policy Stat Procedure [place] High Sensitivity Troponin (TNIH) and attachments. Platelet mean volume Rui-Ec ker (Bld) [Entitic vol]Ordered By: Armida Mason on 11-06-2023 Platelet mean volume (Bld) [Entitic vol] 9.8 fL 6.2-12.0 [facility] RBC Auto (Bld) [#/Vol]Ordere d By: Armida Mason on 11-06-2023 RBC (Bld) [#/Vol] 3.47 10*6/uL 4.2-5.4 [facility] Serum or plasma calcium ashley urement (mass/volume)Ordered By: Armida Mason on 11-06-2023 Calcium [Mass/Vol] 9.4 mg/dL 8.5-10.1 [facility] Serum or plasma creatinine m easurement (mass/volume)Ordered By: Armida Mason on 11-06-2023 Creatinine [Mass/Vol] 1.40 mg/dL 0.55-1.02 [facility] Comment on above: The validity of the calculated GFR & GFRAA in patients over 70 years has not been determined. Clinical correlation is essential. Serum or plasma urea nitroge n measurement (mass/volume)Ordered By: Armida Mason on 11-06-2023 Urea nitrogen [Mass/Vol] 33 mg/dL 7-18 [facility] Thin prep Papanicolaou smear with manual screeningOrdered By: Armida Mason on 11-06-2023 Thin prep Papanicolaou smear with manual screening 4 5-15 [facility] NM HEPATOBILIARY W EF AND/OR RXon 07-08-2023 [facility] No Panel Informationon 04-01 [facility] No Panel Informationon 03-08 [facility] XR CHEST 2V FRONTAL/LATon [facility] DBT Breast - bilateral scree ningon 01-06-2023 IMPRESSION: BENIGN F INDING There is no mammographic evidence of malignancy. A 1 year screening mammogram is recommended. Simran Laughlin M.D. ch/meghan:01/06/2023 16:13:36 Search Engine Optimization Manager(s): RT Lidia(R)(M), [facility] letter sent: Normal over 40 Mammogram BI-RADS: 2 Benign finding Multiple national specialty organizations have released breast cancer screening guidelines for women at average risk for developing breast cancer - guidelines that are based on both evidence and opinion, yet differ on when to start and how often to screen for breast cancer. With representation from Breast Imaging, Internal Medicine, Women's Health, Family Medicine, and Medical/Surgical Oncology, the [facility] has carefully reviewed the data and reached the following consensus: 1) All women should engage in shared decision-making with their providers to decide when to start and how often to screen; 2) All women should have the opportunity to start screening mammography at age 40; 3) For women ages 45-55, we recommend annual screening mammograms; 4) For women ages 55 and over, we support both the transition from an annual to a biennial interval if this aligns more with patient's values and preferences, or continuation with annual screening; 5) All women should discuss with their providers when to stop screening mammograms. Patient Svcs Mgr: Meghan Transcribe Date/Time: Jan 05 2023 3:29P Dictated by: SIMRAN LAUGHLIN MD This examination was interpreted and the report reviewed and electronically signed by: SIMRAN LAUGHLIN MD on Jan 06 2023 4:13PM [facility] DIVISION OF RADIOLOGY * * *Final Report* * * DATE OF EXAM: Jan 05 2023 3:33PM [facility] 0582 - [facility] SCREENING W MICHELLE / PROCEDURE REASON: Encounter for screening mammogram for breast cancer * * * * Physician Interpretation * * * * RESULT: #[id number] - [facility]ICOLE SCREENING W MICHELLE BILATERAL DIGITAL SCREENING MAMMOGRAM TOMOSYNTHESIS WITH CAD: 01/05/2023 HISTORY: Screening Mammogram-Patient reports NO symptoms. RESULT: TECHNIQUE: The study was acquired using full field digital technology and interpreted from soft copy. Digital Breast Tomosynthesis (DBT) images were obtained and used to assist in the interpretation of this examination. Current study was also evaluated with a Computer Aided Detection (CAD). Comparison is made to exams dated: 08/18/2021 mammogram, 07/30/2020 mammogram - [facility], 07/18/2019 mammogram, and 08/03/2018 mammogram - [facility]. The tissue of both breasts is heterogeneously dense. This may lower the sensitivity of mammography. There are benign post operative findings and biopsy clips in the right breast. No significant masses, calcifications, or other findings are seen in either breast. There has been no significant interval change. DIVISION OF RADIOLOGY Provider, [facility] - 01/06/2023 * * *Final Report* * * DATE OF EXAM: Jan 05 2023 3:33PM [facility] [id number] - NICOLE SCREENING W MICHELLE / PROCEDURE REASON: Encounter for screening mammogram for breast cancer * * * * Physician Interpretation * * * * RESULT: #[id number] - NICOLE SCREENING W MICHELLE BILATERAL DIGITAL SCREENING MAMMOGRAM TOMOSYNTHESIS WITH CAD: 01/05/2023 HISTORY: Screening Mammogram-Patient reports NO symptoms. RESULT: TECHNIQUE: The study was acquired using full field digital technology and interpreted from soft copy. Digital Breast Tomosynthesis (DBT) images were obtained and used to assist in the interpretation of this examination. Current study was also evaluated with a Computer Aided Detection (CAD). Comparison is made to exams dated: 08/18/2021 mammogram, 07/30/2020 mammogram - [facility], 07/18/2019 mammogram, and 08/03/2018 mammogram - [facility]. The tissue of both breasts is heterogeneously dense. This may lower the sensitivity of mammography. There are benign post operative findings and biopsy clips in the right breast. No significant masses, calcifications, or other findings are seen in either breast. There has been no significant interval change. IMPRESSION IMPRESSION: BENIGN FINDING There is no mammographic evidence of malignancy. A 1 year screening mammogram is recommended. Simran Laughlin M.D., ch/meghan:01/06/2023 16:13:36 Search Engine Optimization Manager(s): RT Lidia(Renny)(M), [facility] letter sent: Normal over 40 Mammogram BI-RADS: 2 Benign finding Multiple national specialty organizations have released breast cancer screening guidelines for women at average risk for developing breast cancer - guidelines that are based on both evidence and opinion, yet differ on when to start and how often to screen for breast cancer. With representation from Breast Imaging, Internal Medicine, Women's Health, Family Medicine, and Medical/Surgical Oncology, the [facility] has carefully reviewed the data and reached the following consensus: 1) All women should engage in shared decision-making with their providers to decide when to start and how often to screen; 2) All women should have the opportunity to start screening mammography at age 40; 3) For women ages 45-55, we recommend annual screening mammograms; 4) For women ages 55 and over, we support both the transition from an annual to a biennial interval if this aligns more with patient's values and preferences, or continuation with annual screening; 5) All women should discuss with their providers when to stop screening mammograms. Patient Svcs Mgr: Meghan Transcribe Date/Time: Jan 05 2023 3:29P Dictated by: SIMRAN LAUGHLIN MD This examination was interpreted and the report reviewed and electronically signed by: SIMRAN LAUGHLIN MD on Jan 06 2023 4:13PM EST [facility] DBT Breast - bilateral scree ningOrdered By: Ccf Provider on 01-06-2023 [facility] DBT Breast - bilateral scree ningon 01-05-2023 Radiology Study observation (narrative) [facility] NICOLE SCREENING W TOMOon 01-05 [facility] US KIDNEY/BLADDERon 10-08-20 [facility] UA DIP, URINE (POC)on 2021 BILIRUBIN UA (POCT) Negative Negative [facility] CLARITY UA (POCT) Cloudy [facility] COLOR UA (POCT) Yellow [facility] GLUCOSE UA (POCT) Negative Negative mg/dL [facility] HEMOGLOBIN/BLOOD UA (POCT) Small Abnormal Negative [facility] KETONE UA (POCT) Trace Negative mg/dL [facility] LEUKOCYTES UA (POCT) Small Abnormal Negative [facility] NITRITE UA (POCT) Positive Abnormal Negative [facility] PH UA (POCT) 5.5 4.5 - 8.0 [facility] Protein Ql (U) 30 mg/dL Abnormal Negative mg/dL [facility] SPECIFIC GRAVITY UA (POCT) 1.020 1.005 - 1.030 [facility] UROBILINOGEN UA (POCT) 0.2 E.U./dL Ophelia l E.U./dL [facility] CBC W Auto Differential pane l (Bld)on 09-11-2022 Basophils (Bld) [#/Vol] 0.03 10*3/uL <0.11 k/uL [facility] Basophils/100 WBC (Bld) 0.6 % [facility] Differential cell count method Nom (Bld) Auto [facility] Eosinophils (Bld) [#/Vol] 0.16 10*3/uL <0.46 k/uL [facility] Eosinophils/100 WBC (Bld) 3.3 % [facility] Erythrocyte distribution width (RBC) [Ratio] 13.3 % 11.5 - 15.0 % [facility] Hematocrit (Bld) [Volume fraction] 36.6 % 36.0 - 46.0 % [facility] Hemoglobin (Bld) [Mass/Vol] 11.9 g/dL 11.5 - 15.5 g/dL [facility] Immature granulocytes (Bld) [#/Vol] <0.10 k/uL [facility] Immature granulocytes/100 WBC (Bld) 0.2 % [facility] Lymphocytes (Bld) [#/Vol] 2.10 10*3/uL 1.00 - 4.00 k/uL [facility] Lymphocytes/100 WBC (Bld) 43.8 % [facility] MCH (RBC) [Entitic mass] 31.8 pg 26.0 - 34.0 pg [facility] MCHC (RBC) [Mass/Vol] 32.5 g/dL 30.5 - 36.0 g/dL [facility] MCV (RBC) [Entitic vol] 97.9 fL 80.0 - 100.0 fL [facility] Monocytes (Bld) [#/Vol] 0.50 10*3/uL <0.87 k/uL [facility] Monocytes/100 WBC (Bld) 10.4 % [facility] Neutrophils (Bld) [#/Vol] 2.00 10*3/uL 1.45 - 7.50 k/uL [facility] Neutrophils/100 WBC (Bld) 41.7 % [facility] Nucleated RBC (Bld) [#/Vol] <0.01 k/uL [facility] Nucleated RBC/100 WBC (Bld) [Ratio] 0.0 /100 WBC [facility] Platelet mean volume (Bld) [Entitic vol] 9.9 fL 9.0 - 12.7 fL [facility] Platelets (Bld) [#/Vol] 171 10*3/uL 150 - 400 k/uL [facility] RBC (Bld) [#/Vol] 3.74 10*6/uL Low 3.90 - 5.20 m/uL [facility] WBC (Bld) [#/Vol] 4.80 10*3/uL 3.70 - 11.00 k/uL [facility] CBC W Auto Differential pane l (Bld)on 04-17-2022 Abs Immature Gran <0.03 <0.10 k/uL [facility] Basophils (Bld) [#/Vol] 10*3/uL <0.11 k/uL [facility] Basophils/100 WBC (Bld) 0.6 % [facility] Differential cell count method Nom (Bld) Auto [facility] Eosinophils (Bld) [#/Vol] 0.08 10*3/uL <0.46 k/uL [facility] Eosinophils/100 WBC (Bld) 2.2 % [facility] Erythrocyte distribution width (RBC) [Ratio] 13.0 % 11.5 - 15.0 % [facility] Hematocrit (Bld) [Volume fraction] 31.7 % Low 36.0 - 46.0 % [facility] Hemoglobin (Bld) [Mass/Vol] 10.4 g/dL Low 11.5 - 15.5 g/dL [facility] Immature Gran % 0.3 % [facility] Lymphocytes (Bld) [#/Vol] 1.40 10*3/uL 1.00 - 4.00 k/uL [facility] Lymphocytes/100 WBC (Bld) 39.1 % [facility] MCH (RBC) [Entitic mass] 32.4 pg 26.0 - 34.0 pg [facility] MCHC (RBC) [Mass/Vol] 32.8 g/dL 30.5 - 36.0 g/dL [facility] MCV (RBC) [Entitic vol] 98.8 fL 80.0 - 100.0 fL [facility] Monocytes (Bld) [#/Vol] 0.40 10*3/uL <0.87 k/uL [facility] Monocytes/100 WBC (Bld) 11.2 % [facility] Neutrophils (Bld) [#/Vol] 1.67 10*3/uL 1.45 - 7.50 k/uL [facility] Neutrophils/100 WBC (Bld) 46.6 % [facility] Nucleated RBC (Bld) [#/Vol] 10*3/uL <0.01 k/uL [facility] Nucleated RBC/100 WBC (Bld) [Ratio] 0.0 /100 WBC [facility] Platelet mean volume (Bld) [Entitic vol] 10.3 fL 9.0 - 12.7 fL [facility] Platelets (Bld) [#/Vol] 194 10*3/uL 150 - 400 k/uL [facility] RBC (Bld) [#/Vol] 3.21 10*6/uL Low 3.90 - 5.20 m/uL [facility] WBC (Bld) [#/Vol] 3.58 10*3/uL Low 3.70 - 11.00 k/uL [facility] RETIC COUNTon 04-17-2022 Reticulocytes (Bld) [#/Vol] 0.93506 10*3/uL 0.018 - 0.100 M/uL [facility] Reticulocytes (Bld) [#/Vol]o n 04-17-2022 Reticulocytes/100 RBC (Bld) 0.9 % 0.4 - 2.0 % [facility] CNTHERAPYon 02-03-2022 CNTHERAPY OT/PT/Speech Visit ( OTC) ZENAIDA EVANS ([id number]) 1935 F MAL Date Time Provider Department 02/03/22 3:45 PM LAVERNE HELMS [facility] Date Time Provider Department Center 02/03/2022 3:45 PM [id number] [facility] Reason for Visit: Occupational Therapy [504] Primary Visit Diagnosis:Thumb pain, left [M79.645] Other Visit Diagnosis:Primary osteoarthritis of first carpometacarpal joint of left hand [M18.12] Allergies As of Date: 02/03/2022 Noted Allergy Reaction SCOPOLAMINE 10/30/2011 1 - Mental Status Change Comments: Hallucinations AMLODIPINE 03/01/2020 14 - Other: See Comments Comments: Significant swelling even on 2.5 mg per day. HCTZ (THIAZIDES) 12/15/2019 15 - Contraindication-Medical [place]* Comments: Hyponatremia at 12.5 mg. HYDRALAZINE 08/12/2020 5 - Intolerance Comments: nausea IRON 09/03/2005 8 - GI Upset Comments: CAN TAKE SLO-IRON LIPITOR (ATORVASTATIN) 11/09/2019 17 - Myalgia LOSARTAN 11/28/2019 14 - Other: See Comments Comments: BRIGHT with elevated potassium and creatinine. SPIRONOLACTONE 07/10/2020 5 - Intolerance Comments: Blood pressure went up TALWIN (PENTAZOCINE LACTATE) 09/30/2009 1 - Mental Status Change Comments: HALLUCINATIONS VERAPAMIL HCL 05/06/2016 8 - GI Upset Comments: constipation Date Reviewed: 12/29/2021 Reviewed by: Migel Dougherty MD - Fully Assessed Prescriptions as of 02/03/2022 - SYNTHROID 88 mcg tablet Take 1 tablet by mouth once daily. - minoxidil (LONITEN) 2.5 mg tablet - cloNIDine TTS (CATAPRES-TTS) 0.1 mg/24 hr Apply 1 Patch as directed one time a week. - furosemide (LASIX) 20 mg tablet Take 1 tablet by mouth every Wednesday,Wednesday,Wednesday (0600). - labetalol (TRANDATE) 200 mg tablet Take 1 tablet by mouth twice daily. - Ferrous Sulfate (SLOW FE) 142 mg (45 mg iron) TbER Take 1 tablet by mouth two times a week. - Lmefol Dr-htkjqq-wqE94-algal (CEREFOLIN NAC, ALGAL OIL,) 6 mg-600 mg- 2 mg-90.314 mg tab Take 1 tablet by mouth once daily. - ketoconazole (NIZORAL) 2 % shampoo Use to wash face and scalp two times a week. Lather and leave in for 3-5 minutes before rinsing. - MULTIVITAMIN ORAL Take 1 tablet by mouth once daily. - aspirin, enteric coated (ECOTRIN LOW STRENGTH) 81 mg EC tablet Take 1 tablet by mouth once daily. - Melatonin 5 mg cap Take 1 capsule by mouth at bedtime as needed. - Cholecalciferol, Vitamin D3, (VITAMIN D-3) 2,000 unit cap Take 1 capsule by mouth once daily. - biotin 5 mg tab Take 5 mg by mouth once daily. Meds Comments as of 11/27/2019: 11/27/19 The medications are managed by this patient by: PATIENT Tika Mahmood (Boot Trimmer) Annotated image of OT HAND WRIST STRENGTHENING last updated by DEBORAH Saleem on 02/03/2022 4:00 PM [facility] CNTHERAPYon 01-27-2022 CNTHERAPY OT/PT/Speech Visit ( [facility]) ZENAIDA EVANS ([id number]) 1935 [address] Date Time Provider Department 01/27/22 11:45 AM LAVERNE HELMS Date Time Provider Department Center 01/27/2022 11:45 AM [id number] Reason for Visit: Occupational Therapy [504] No Show [1558] Cmt: No show Primary Visit Diagnosis:Thumb pain, left [M79.645] Other Visit Diagnosis:NO SHOW Allergies As of Date: 01/27/2022 Noted Allergy Reaction SCOPOLAMINE 10/30/2011 1 - Mental Status Change Comments: Hallucinations AMLODIPINE 03/01/2020 14 - Other: See Comments Comments: Significant swelling even on 2.5 mg per day. HCTZ (THIAZIDES) 12/15/2019 15 - Contraindication-Medical [place]* Comments: Hyponatremia at 12.5 mg. HYDRALAZINE 08/12/2020 5 - Intolerance Comments: nausea IRON 09/03/2005 8 - GI Upset Comments: CAN TAKE SLO-IRON LIPITOR (ATORVASTATIN) 11/09/2019 17 - Myalgia LOSARTAN 11/28/2019 14 - Other: See Comments Comments: BRIGHT with elevated potassium and creatinine. SPIRONOLACTONE 07/10/2020 5 - Intolerance Comments: Blood pressure went up TALWIN (PENTAZOCINE LACTATE) 09/30/2009 1 - Mental Status Change Comments: HALLUCINATIONS VERAPAMIL HCL 05/06/2016 8 - GI Upset Comments: constipation Date Reviewed: 12/29/2021 Reviewed by: Migel Dougherty MD - Fully Assessed Prescriptions as of 01/27/2022 - SYNTHROID 88 mcg tablet Take 1 tablet by mouth once daily. - minoxidil (LONITEN) 2.5 mg tablet - cloNIDine TTS (CATAPRES-TTS) 0.1 mg/24 hr Apply 1 Patch as directed one time a week. - furosemide (LASIX) 20 mg tablet Take 1 tablet by mouth every Wednesday,Wednesday,Wednesday (0600). - labetalol (TRANDATE) 200 mg tablet Take 1 tablet by mouth twice daily. - Ferrous Sulfate (SLOW FE) 142 mg (45 mg iron) TbER Take 1 tablet by mouth two times a week. - Lmefol Sk-mcpjpx-nhV18-algal (CEREFOLIN NAC, ALGAL OIL,) 6 mg-600 mg- 2 mg-90.314 mg tab Take 1 tablet by mouth once daily. - ketoconazole (NIZORAL) 2 % shampoo Use to wash face and scalp two times a week. Lather and leave in for 3-5 minutes before rinsing. - MULTIVITAMIN ORAL Take 1 tablet by mouth once daily. - aspirin, enteric coated (ECOTRIN LOW STRENGTH) 81 mg EC tablet Take 1 tablet by mouth once daily. - Melatonin 5 mg cap Take 1 capsule by mouth at bedtime as needed. - Cholecalciferol, Vitamin D3, (VITAMIN D-3) 2,000 unit cap Take 1 capsule by mouth once daily. - biotin 5 mg tab Take 5 mg by mouth once daily. Meds Comments as of 11/27/2019: 11/27/19 The medications are managed by this patient by: PATIENT Tika Mahmood (Boot Trimmer) Normal [facility] CNTHERAPYon 01-13-2022 CNTHERAPY OT/PT/Speech Visit ( [facility]) ZENAIDA EVANS ([id number]) 1935 [address] NUNEZ Date Time Provider Department 01/13/22 3:45 PM LAVERNE HELMS [facility] Date Time Provider Department Center 01/13/2022 3:45 PM [id number] HELMS [facility] Reason for Visit: Occupational Therapy [504] Primary Visit Diagnosis:Thumb pain, left [M79.645] Other Visit Diagnosis:Primary osteoarthritis of first carpometacarpal joint of left hand [M18.12] Allergies As of Date: 01/13/2022 Noted Allergy Reaction SCOPOLAMINE 10/30/2011 1 - Mental Status Change Comments: Hallucinations AMLODIPINE 03/01/2020 14 - Other: See Comments Comments: Significant swelling even on 2.5 mg per day. HCTZ (THIAZIDES) 12/15/2019 15 - Contraindication-Medical [place]* Comments: Hyponatremia at 12.5 mg. HYDRALAZINE 08/12/2020 5 - Intolerance Comments: nausea IRON 09/03/2005 8 - GI Upset Comments: CAN TAKE SLO-IRON LIPITOR (ATORVASTATIN) 11/09/2019 17 - Myalgia LOSARTAN 11/28/2019 14 - Other: See Comments Comments: BRIGHT with elevated potassium and creatinine. SPIRONOLACTONE 07/10/2020 5 - Intolerance Comments: Blood pressure went up TALWIN (PENTAZOCINE LACTATE) 09/30/2009 1 - Mental Status Change Comments: HALLUCINATIONS VERAPAMIL HCL 05/06/2016 8 - GI Upset Comments: constipation Date Reviewed: 12/29/2021 Reviewed by: Migel Dougherty MD - Fully Assessed Prescriptions as of 01/13/2022 - SYNTHROID 88 mcg tablet Take 1 tablet by mouth once daily. - minoxidil (LONITEN) 2.5 mg tablet - cloNIDine TTS (CATAPRES-TTS) 0.1 mg/24 hr Apply 1 Patch as directed one time a week. - furosemide (LASIX) 20 mg tablet Take 1 tablet by mouth every Wednesday,Wednesday,Wednesday (0600). - labetalol (TRANDATE) 200 mg tablet Take 1 tablet by mouth twice daily. - Ferrous Sulfate (SLOW FE) 142 mg (45 mg iron) TbER Take 1 tablet by mouth two times a week. - Lmefol Ty-mddako-qgQ57-algal (CEREFOLIN NAC, ALGAL OIL,) 6 mg-600 mg- 2 mg-90.314 mg tab Take 1 tablet by mouth once daily. - ketoconazole (NIZORAL) 2 % shampoo Use to wash face and scalp two times a week. Lather and leave in for 3-5 minutes before rinsing. - MULTIVITAMIN ORAL Take 1 tablet by mouth once daily. - aspirin, enteric coated (ECOTRIN LOW STRENGTH) 81 mg EC tablet Take 1 tablet by mouth once daily. - Melatonin 5 mg cap Take 1 capsule by mouth at bedtime as needed. - Cholecalciferol, Vitamin D3, (VITAMIN D-3) 2,000 unit cap Take 1 capsule by mouth once daily. - biotin 5 mg tab Take 5 mg by mouth once daily. Meds Comments as of 11/27/2019: 11/27/19 The medications are managed by this patient by: PATIENT Tika Mahmood (Boot Trimmer) Annotated image of OT HAND POST-OP EX'S PG6-THUMB last updated by Laverne Helms OT/Cathryn on 01/13/2022 4:03 PM [facility] CNTHERAPYon 01-06-2022 CNTHERAPY OT/PT/Speech Visit ( [facility]) ZENAIDA EVANS ([id number]) 1935 F MAL Date Time Provider Department 01/06/22 2:15 PM LAVERNE HELMS [facility] Date Time Provider Department Center 01/06/2022 2:15 PM [id number] HELMS [facility] Reason for Visit: Occupational Therapy [504] Primary Visit Diagnosis:Thumb pain, left [M79.645] Other Visit Diagnosis:Primary osteoarthritis of first carpometacarpal joint of left hand [M18.12] Allergies As of Date: 01/06/2022 Noted Allergy Reaction SCOPOLAMINE 10/30/2011 1 - Mental Status Change Comments: Hallucinations AMLODIPINE 03/01/2020 14 - Other: See Comments Comments: Significant swelling even on 2.5 mg per day. HCTZ (THIAZIDES) 12/15/2019 15 - Contraindication-Medical [place]* Comments: Hyponatremia at 12.5 mg. HYDRALAZINE 08/12/2020 5 - Intolerance Comments: nausea IRON 09/03/2005 8 - GI Upset Comments: CAN TAKE SLO-IRON LIPITOR (ATORVASTATIN) 11/09/2019 17 - Myalgia LOSARTAN 11/28/2019 14 - Other: See Comments Comments: BRIGHT with elevated potassium and creatinine. SPIRONOLACTONE 07/10/2020 5 - Intolerance Comments: Blood pressure went up TALWIN (PENTAZOCINE LACTATE) 09/30/2009 1 - Mental Status Change Comments: HALLUCINATIONS VERAPAMIL HCL 05/06/2016 8 - GI Upset Comments: constipation Date Reviewed: 12/29/2021 Reviewed by: Migel Dougherty MD - Fully Assessed Prescriptions as of 01/06/2022 - SYNTHROID 88 mcg tablet Take 1 tablet by mouth once daily. - minoxidil (LONITEN) 2.5 mg tablet - cloNIDine TTS (CATAPRES-TTS) 0.1 mg/24 hr Apply 1 Patch as directed one time a week. - furosemide (LASIX) 20 mg tablet Take 1 tablet by mouth every Wednesday,Wednesday,Wednesday (0600). - labetalol (TRANDATE) 200 mg tablet Take 1 tablet by mouth twice daily. - Ferrous Sulfate (SLOW FE) 142 mg (45 mg iron) TbER Take 1 tablet by mouth two times a week. - Lmefol Fm-ayqgsl-yjE39-algal (CEREFOLIN NAC, ALGAL OIL,) 6 mg-600 mg- 2 mg-90.314 mg tab Take 1 tablet by mouth once daily. - ketoconazole (NIZORAL) 2 % shampoo Use to wash face and scalp two times a week. Lather and leave in for 3-5 minutes before rinsing. - MULTIVITAMIN ORAL Take 1 tablet by mouth once daily. - aspirin, enteric coated (ECOTRIN LOW STRENGTH) 81 mg EC tablet Take 1 tablet by mouth once daily. - Melatonin 5 mg cap Take 1 capsule by mouth at bedtime as needed. - Cholecalciferol, Vitamin D3, (VITAMIN D-3) 2,000 unit cap Take 1 capsule by mouth once daily. - biotin 5 mg tab Take 5 mg by mouth once daily. Meds Comments as of 11/27/2019: 11/27/19 The medications are managed by this patient by: PATIENT Tika Mahmood (Boot Trimmer) Normal [facility] DBT Breast - bilateral beckie annapriscilla 08-18-2021 IMPRESSION: BENIGN F INDING There is no mammographic evidence of malignancy. A 1 year screening mammogram is recommended. Zoya Patel M.D. pt/penrad:08/18/2021 12:22:56 Search Engine Optimization Manager(s): RT Renny Treviño, [facility] letter sent: Normal over 40 Mammogram BI-RADS: 2 Benign finding Multiple national specialty organizations have released breast cancer screening guidelines for women at average risk for developing breast cancer - guidelines that are based on both evidence and opinion, yet differ on when to start and how often to screen for breast cancer. With representation from Breast Imaging, Internal Medicine, Women's Health, Family Medicine, and Medical/Surgical Oncology, the [facility] has carefully reviewed the data and reached the following consensus: 1) All women should engage in shared decision-making with their providers to decide when to start and how often to screen; 2) All women should have the opportunity to start screening mammography at age 40; 3) For women ages 45-55, we recommend annual screening mammograms; 4) For women ages 55 and over, we support both the transition from an annual to a biennial interval if this aligns more with patient's values and preferences, or continuation with annual screening; 5) All women should discuss with their providers when to stop screening mammograms. Patient Svcs Mgr: Meghan Transcribe Date/Time: Aug 18 2021 11:33A Dictated by: ZOYA PATEL MD This examination was interpreted and the report reviewed and electronically signed by: ZOYA PATEL MD on Aug 18 2021 12:22PM [facility] DIVISION OF RADIOLOGY * * *Final Report* * * DATE OF EXAM: Aug 18 2021 11:50AM W [id number] - [facility] SCREENING W MICHELLE / PROCEDURE REASON: Encounter for screening mammogram for malignant neoplasm of breast * * * * Physician Interpretation * * * * RESULT: #[id number] - [facility]ICOLE SCREENING W MICHELLE BILATERAL DIGITAL SCREENING MAMMOGRAM TOMOSYNTHESIS WITH CAD: 08/18/2021 HISTORY: Encounter For Screening Mammogram For Malignant Neoplasm Of Breast / Screening Mammogram-Patient reports NO symptoms. RESULT: TECHNIQUE: The study was acquired using full field digital technology and interpreted from soft copy. Digital Breast Tomosynthesis (DBT) images were obtained and used to assist in the interpretation of this examination. Current study was also evaluated with a Computer Aided Detection (CAD). Comparison is made to exams dated: 07/30/2020 mammogram - [facility], 07/18/2019 mammogram, 08/03/2018 mammogram - [facility], 09/17/2017 mammogram - [facility], 08/27/2015 mammogram, and 09/17/2014 mammogram - [facility]. The tissue of both breasts is heterogeneously dense. This may lower the sensitivity of mammography. The patient is status post lumpectomy right breast in the upper outer quadrant. The right breast has post-operative findings. There are two biopsy clips in the right breast. No significant masses, calcifications, or other findings are seen in either breast. DIVISION OF RADIOLOGY Provider, [facility] - 08/18/2021 * * *Final Report* * * DATE OF EXAM: Aug 18 2021 11:50AM SSW [id number] - [facility] SCREENING W MICHELLE / PROCEDURE REASON: Encounter for screening mammogram for malignant neoplasm of breast * * * * Physician Interpretation * * * * RESULT: #[id number] - [facility] SCREENING W MICHELLE BILATERAL DIGITAL SCREENING MAMMOGRAM TOMOSYNTHESIS WITH CAD: 08/18/2021 HISTORY: Encounter For Screening Mammogram For Malignant Neoplasm Of Breast / Screening Mammogram-Patient reports NO symptoms. RESULT: TECHNIQUE: The study was acquired using full field digital technology and interpreted from soft copy. Digital Breast Tomosynthesis (DBT) images were obtained and used to assist in the interpretation of this examination. Current study was also evaluated with a Computer Aided Detection (CAD). Comparison is made to exams dated: 07/30/2020 mammogram - [facility], 07/18/2019 mammogram, 08/03/2018 mammogram - [facility], 09/17/2017 mammogram - [facility], 08/27/2015 mammogram, and 09/17/2014 mammogram - [facility]. The tissue of both breasts is heterogeneously dense. This may lower the sensitivity of mammography. The patient is status post lumpectomy right breast in the upper outer quadrant. The right breast has post-operative findings. There are two biopsy clips in the right breast. No significant masses, calcifications, or other findings are seen in either breast. IMPRESSION IMPRESSION: BENIGN FINDING There is no mammographic evidence of malignancy. A 1 year screening mammogram is recommended. Zoya Patel M.D. pt/penrad:08/18/2021 12:22:56 Search Engine Optimization Manager(s): RT Renny Treviño, [facility] letter sent: Normal over 40 Mammogram BI-RADS: 2 Benign finding Multiple national specialty organizations have released breast cancer screening guidelines for women at average risk for developing breast cancer - guidelines that are based on both evidence and opinion, yet differ on when to start and how often to screen for breast cancer. With representation from Breast Imaging, Internal Medicine, Women's Health, Family Medicine, and Medical/Surgical Oncology, the [facility] has carefully reviewed the data and reached the following consensus: 1) All women should engage in shared decision-making with their providers to decide when to start and how often to screen; 2) All women should have the opportunity to start screening mammography at age 40; 3) For women ages 45-55, we recommend annual screening mammograms; 4) For women ages 55 and over, we support both the transition from an annual to a biennial interval if this aligns more with patient's values and preferences, or continuation with annual screening; 5) All women should discuss with their providers when to stop screening mammograms. Patient Svcs Mgr: Meghan Transcribe Date/Time: Aug 18 2021 11:33A Dictated by: ZOYA PATEL MD This examination was interpreted and the report reviewed and electronically signed by: ZOYA PATEL MD on Aug 18 2021 12:22PM [facility] Radiology Study observation (narrative) [facility] DBT Breast - bilateral scree ningOrdered By: Ccf Provider on 08-18-2021 [facility] XR Wrist - left 4 Viewson IMPRESSION: Findings are suggestive of mild degenerative changes of the left wrist with chondrocalcinosis. Patient Svcs Mgr: RUDY Transcribe Date/Time: Dec 24 2020 1:39P Dictated by : OMEGA RASCON MD This examination was interpreted and the report reviewed and electronically signed by: OMEGA RASCON MD on Dec 24 2020 1:43PM [facility] DIVISION OF RADIOLOGY * * *Final Report* * * DATE OF EXAM: Dec 24 2020 1:23PM WOX [id number] - XR WRIST 4V PA/LAT/OBL/SCAPH LT / PROCEDURE REASON: Left wrist pain * * * * Physician Interpretation * * * * EXAM TITLE: XR WRIST 4V PA/LAT/OBL/SCAPH LT EXAM DATE/TIME: 12/24/2020 1:23 PM COMPARISON: None. CLINICAL INDICATION/HISTORY: Wrist pain. No known injury. TECHNIQUE: PA, lateral, oblique and scaphoid views of left wrist are presented. FINDINGS: No acute fractures or subluxations are noted. Mild degenerative changes involving the first carpometacarpal joint. The radiocarpal joint space is maintained. The mineralization of the bones is normal. There is no significant soft tissue swelling however chondrocalcinosis is present. DIVISION OF RADIOLOGY Provider, [facility] Robin [facility] - 12/24/2020 * * *Final Report* * * DATE OF EXAM: Dec 24 2020 1:23PM WOX [id number] - XR WRIST 4V PA/LAT/OBL/SCAPH LT / PROCEDURE REASON: Left wrist pain * * * * Physician Interpretation * * * * EXAM TITLE: XR WRIST 4V PA/LAT/OBL/SCAPH LT EXAM DATE/TIME: 12/24/2020 1:23 PM COMPARISON: None. CLINICAL INDICATION/HISTORY: Wrist pain. No known injury. TECHNIQUE: PA, lateral, oblique and scaphoid views of left wrist are presented. FINDINGS: No acute fractures or subluxations are noted. Mild degenerative changes involving the first carpometacarpal joint. The radiocarpal joint space is maintained. The mineralization of the bones is normal. There is no significant soft tissue swelling however chondrocalcinosis is present. IMPRESSION IMPRESSION: Findings are suggestive of mild degenerative changes of the left wrist with chondrocalcinosis. Patient Svcs Mgr: PSCRizwan Transcribe Date/Time: Dec 24 2020 1:39P Dictated by : OMEGA RASCON MD This examination was interpreted and the report reviewed and electronically signed by: OMEGA RASCON MD on Dec 24 2020 1:43PM EST [facility] Radiology Study observation (narrative) [facility] XR Wrist - left 4 ViewsOrder ed By: Cc Provider on 12-24-2020 [facility] DBT Breast - bilateral beckie paula 07-30-2020 IMPRESSION: BENIGN F INDING There is no mammographic evidence of malignancy. A 1 year screening mammogram is recommended. Kristyn olmedo/meghan:07/30/2020 18:28:30 Search Engine Optimization Manager(s): RT Manuel(R)(M), [facility] letter sent: Normal over 40 Mammogram BI-RADS: 2 Benign finding Multiple national specialty organizations have released breast cancer screening guidelines for women at average risk for developing breast cancer - guidelines that are based on both evidence and opinion, yet differ on when to start and how often to screen for breast cancer. With representation from Breast Imaging, Internal Medicine, Women's Health, Family Medicine, and Medical/Surgical Oncology, the [facility] has carefully reviewed the data and reached the following consensus: 1) All women should engage in shared decision-making with their providers to decide when to start and how often to screen; 2) All women should have the opportunity to start screening mammography at age 40; 3) For women ages 45-55, we recommend annual screening mammograms; 4) For women ages 55 and over, we support both the transition from an annual to a biennial interval if this aligns more with patient's values and preferences, or continuation with annual screening; 5) All women should discuss with their providers when to stop screening mammograms. Patient Svcs Mgr: Meghan Transcribe Date/Time: Jul 30 2020 11:30A Dictated by: KRISTYN WAGNER MD This examination was interpreted and the report reviewed and electronically signed by: KRISTYN WAGNER MD on Jul 30 2020 6:28PM [facility] DIVISION OF RADIOLOGY * * *Final Report* * * DATE OF EXAM: Jul 30 2020 11:55AM SSW [id number] - [facility] SCREENING W MICHELLE / PROCEDURE REASON: multiple diagnoses * * * * Physician Interpretation * * * * RESULT: #[id number] - NICOLE SCREENING W MICHELLE BILATERAL DIGITAL SCREENING MAMMOGRAM TOMOSYNTHESIS WITH CAD: 07/30/2020 HISTORY: Multiple Diagnoses /Screening Mammogram-patient reports no symptoms. RESULT: TECHNIQUE: The study was acquired using full field digital technology and interpreted from soft copy. Digital Breast Tomosynthesis (DBT) images were obtained and used to assist in the interpretation of this examination. Current study was also evaluated with a Computer Aided Detection (CAD). Comparison is made to exams dated: 07/18/2019 mammogram, 08/03/2018 [facility] - [facility], 09/17/2017 mammogram - [facility], and 09/15/2016 mammogram - [facility]. There are scattered fibroglandular elements in both breasts. There is a benign area of fat necrosis in the right breast. There also are benign post operative findings and biopsy clip in the right breast. Additionally, there are benign post operative findings in the left breast. No significant masses, calcifications, or other findings are seen in either breast. There has been no significant interval change. DIVISION OF RADIOLOGY Provider, [facility] - 07/30/2020 * * *Final Report* * * DATE OF EXAM: Jul 30 2020 11:55AM SSW [id number] - [facility] SCREENING W MICHELLE / PROCEDURE REASON: multiple diagnoses * * * * Physician Interpretation * * * * RESULT: #[id number] - [facility] SCREENING W MICHELLE BILATERAL DIGITAL SCREENING MAMMOGRAM TOMOSYNTHESIS WITH CAD: 07/30/2020 HISTORY: Multiple Diagnoses /Screening Mammogram-patient reports no symptoms. RESULT: TECHNIQUE: The study was acquired using full field digital technology and interpreted from soft copy. Digital Breast Tomosynthesis (DBT) images were obtained and used to assist in the interpretation of this examination. Current study was also evaluated with a Computer Aided Detection (CAD). Comparison is made to exams dated: 07/18/2019 mammogram, 08/03/2018 mammogram - [facility] [place], 09/17/2017 mammogram - [facility], and 09/15/2016 mammogram - [facility]. There are scattered fibroglandular elements in both breasts. There is a benign area of fat necrosis in the right breast. There also are benign post operative findings and biopsy clip in the right breast. Additionally, there are benign post operative findings in the left breast. No significant masses, calcifications, or other findings are seen in either breast. There has been no significant interval change. IMPRESSION IMPRESSION: BENIGN FINDING There is no mammographic evidence of malignancy. A 1 year screening mammogram is recommended. Kristyn olmedo/meghan:07/30/2020 18:28:30 Search Engine Optimization Manager(s): RT Manuel(R)(M), [facility] letter sent: Normal over 40 Mammogram BI-RADS: 2 Benign finding Multiple national specialty organizations have released breast cancer screening guidelines for women at average risk for developing breast cancer - guidelines that are based on both evidence and opinion, yet differ on when to start and how often to screen for breast cancer. With representation from Breast Imaging, Internal Medicine, Women's Health, Family Medicine, and Medical/Surgical Oncology, the [facility] has carefully reviewed the data and reached the following consensus: 1) All women should engage in shared decision-making with their providers to decide when to start and how often to screen; 2) All women should have the opportunity to start screening mammography at age 40; 3) For women ages 45-55, we recommend annual screening mammograms; 4) For women ages 55 and over, we support both the transition from an annual to a biennial interval if this aligns more with patient's values and preferences, or continuation with annual screening; 5) All women should discuss with their providers when to stop screening mammograms. Patient Svcs Mgr: Meghan Transcribe Date/Time: Jul 30 2020 11:30A Dictated by: KRISTYN WAGNER MD This examination was interpreted and the report reviewed and electronically signed by: KRISTYN WAGNER MD on Jul 30 2020 6:28PM EST [facility] Radiology Study observation (narrative) [facility] DBT Breast - bilateral scree ningOrdered By: Stella Provider on 07-30-2020 [facility] BRANDIOVon 07-10-2020 CNOV Office Visit (NEADFV ) ZENAIDA EVANS ([id number]) 1935 F [facility] Date Time Provider Department 07/10/20 11:00 AM AARTI RECINOS During your visit today, we recorded the following information about you: Temperature Pulse Blood pressure Weight 98.5 degrees 77/minute 172/71 66.5 kg Aarti Recinos MD 07/10/2020 12:24 PM Signed [facility] Follow up/ Established patient visit Individuals who were included in, or assisted with the encounter were: ? Zenaida Evans ? Aarti Recinos MD ? Chief Complaint/Issues: Zenaida Evans is a 84 year old left handed female who presented to neurology clinic as follow up for hospital admissions of hypertensive emergency. Relevant Medical Issues: PMHx?of: - Breast cancer (ER+, s/p surgery, radiation, and AI). - Collagenous colitis (dx on biopsy 2012). - Essential HTN.? -?PSVT??(saw cardiology in 2005).? - Hyperlipidemia. - Vitamin D deficiency. - CKD (Cr 1.1-1.2) - Hypothyroidism on levothyroxine Most Recent Neurological Assessment and Plan: Last Filed Values None Current Treatment and Relevant Treatment History: ? She presented?to OSH on 10/15 after developing slurred speech, disorientation, throbbing headache, and generalized weakness after getting out of the shower. She had weakness in her legs and a shuffling gait, per pt report. She was having difficulty speaking/finding words. This episode lasted ~30 min and was resolved upon arrival in the ED. She had a 1 week history of difficulty remembering, which is unusual for her, and a 2 week history of intermittent ataxia. 911 was called and the patient was taken to the [facility] ED. In the ED: - VS: BP 221/110, HR 80, RR 13, O2 sat 97% on RA. - NIHSS 1. - PE: minimal RLE weakness. - NCCT head: no acute infarct or hemorrhage. Small old lacunar infarct on R basal ganglia - Pt was seen by tele-neurology and no tPA was administered. - Labs: BUN 25, Cr 1.46 (Cr 1.06 09/29/19). - EKG: NSR with no ST changes. - Troponin: negative. - CXR: normal. - Pt got 1 dose IV labetalol with slight decrease in BP, but BP started to rise again. Pt was started on IV nicardipine drip and was admitted to the ICU for hypertensive emergency and suspected stroke. ? ? While in the ICU: - For her HTN emergency:?pt was taken off cardizem drip and started on home anti-hypertensive regimen with some SBPs in the 180s, renal US w/o significant stenosis of renal arteries. Anti-hypertensive regimen was titrated but optimal BP control was not attained. ? ? - For her suspected stroke:?Originally patient's aphasia and LE drift resolved overnight the first night.?echo normal (LVEF 65%, G1DD) w/o shunt, MRI brain without acute infarct/has chronic changes. Pt had a stroke alert called 10/17 with NIHSS 10 (not gazing to the left, L leg drift, mild/mod aphasia, ataxia, inattentiveness to L side) -->?NIHSS 8, CT and CTA head and neck unremarkable. Neuro was consulted and thought that symptoms were 2/2 fluctuation in BP. She again had generalized weakness upon trying to ambulate this morning (10/18/19).? ? The patient was transferred to [facility] for further management of her BP. Upon arrival on the [facility], the patient was alert and oriented. She was a good historian and answered questions appropriately. She did complain of a 9/10 headache, which is unchanged from admission at the OSH. Otherwise, no acute complaints or concerns. Upon questioning her about her headache, she states that it is the worse headache of her life, especially considering that she does not typically have headaches. She denies blurry vision, chest pain, or heart palpitations. Denies hx of seizures.? HPI/Interval History: She looks very worried today and said she generally not feeling well. She was admitted again in Nov 2019 for chest pain. She has not been feeling well because of nausea since May. She endorsed slight headache along with the nausea. She did have nausea before and then felt ok for a while. This time it started in May and has not gone away since. She had extensive GI work up. She takes Zofran for it. BP is high today. She takes all short acting BP meds, three times a day. No focal weakness and numbness. General Examination: BP 172/71 (BP Site: Left Arm, BP Position: Sitting, BP Cuff Size: Regular Adult) Pulse 77 Temp 36.9 ?C (98.5 ?F) Wt 66.5 kg (146 lb 8 oz) SpO2 97% BMI 23.65 kg/m? General Exam Neurological Exam Assessment AND Plan 07/10/2020 Aarti Recinos MD General Neurology Assessment Zenaida Evans is a 84 year old left handed female who presented to neurology clinic w [place] breast cancer, collagenous colitis, uncontoled HTN, hyperlipidemia, Vit D deficiency, CKD, hypothyroidism as follow up after hypertensive emergency and associated neurological symptoms. --Although I was not treating her during the hospitalization, it sounds like she had hypertensive emergency and encepphalopathy which lingered for a few days. Negative MRI finding on DWI argues against stroke given that she continue to have the symptoms for several days. She eventually got better. BP is better controlled now. --hypertension, used to be poorly controled. With chronic small vessel disease on MRI. It's ok to leave her on aspirin. --Nausea: I suspect that this is multifactorial: overall not feeling well, insomnia, depression, hypertension, medication side effect et al. I'll do an MRI brain given her cancer history and persistent nausea. She has CKD so I would not give her contrast at this time. If MRI brain is normal, I doubt this is caused by neurological issues. Plan --MRI brain to rule out malignancy --defer to PCP to manage hypertension. Prefers long acting meds --IF MRI brain is normal, she may follow up with me as needed. No diagnosis found. No follow-ups on file. ========= Data Review Objective Current Outpatient Medications Medication Sig - colchicine 0.6 mg tablet TAKE 1/2 TABLET BY MOUTH ONCE DAILY - polyethylene glycol 3350 (MIRALAX, GLYCOLAX) 17 gram/dose powder Use as directed for Miralax / Gatorade Bowel Prep Kit - Gatorade Sports Drink Use as directed for Miralax / Gatorade Bowel Prep Kit - Bisacodyl (DULCOLAX) 5 mg tab Use as directed for Miralax / Gatorade Bowel Prep Kit - promethazine (PHENERGAN) 12.5 mg tablet Take 1 tablet by mouth every 6 hours as needed for Nausea/Vomiting. - diclofenac sodium (VOLTAREN) 1 % topical gel Apply to affected area four times daily. - furosemide (LASIX) 20 mg tablet Take 1 tablet by mouth once daily. - gabapentin (NEURONTIN) 100 mg capsule TAKE 2 CAPSULES BY MOUTH AT NIGHT. - pantoprazole DR (PROTONIX) 20 mg tablet Take 1 tablet by mouth daily before breakfast. Take on empty stomach, 1/2 hr before meal. - hydrALAZINE (APRESOLINE) 25 mg tablet TAKE 1 TABLET BY MOUTH THREE TIMES A DAY - labetalol (TRANDATE) 100 mg tablet Take 1 tablet by mouth three times daily. - peg 3350-Electrolytes (GOLYTELY) 236-22.74-6.74 -5.86 gram suspension Refer to printed patient instructions that will be mailed to you. - SYNTHROID 88 mcg tablet Take 1 tablet by mouth once daily. - aspirin, enteric coated (ECOTRIN LOW STRENGTH) 81 mg EC tablet Take 1 tablet by mouth once daily. - Melatonin 5 mg cap Take 1 capsule by mouth at bedtime as needed. - Cholecalciferol, Vitamin D3, (VITAMIN D-3) 2,000 unit cap Take 1 capsule by mouth once daily. - biotin 5 mg tab Take 5 mg by mouth once daily. No current facility-administered medications for this visit. 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 Bcc L cheek 02/22 Mammographic Microcalcification Hair Loss Thyroid Disorder Visit for Gynecologic Examination hx of low vitamin D treated Right Breast Cancer Stiffness in Joint Malignant Neoplasm of Upper-Inner Quadrant of Female Breast (Hcc) Basal Cell Carcinoma, Face Hypothyroidism Greater Trochanteric Bursitis of Left Hip Hip Arthritis Left Hip Impingement Syndrome Tendinopathy of Left Gluteus Medius Abnormality of Gait Vaginal Atrophy Dyspareunia Seborrheic Dermatitis Vaginismus Elevated Blood Uric Acid Level Localized Edema Venous Stasis Strain of Rotator Cuff Collagenous Colitis Bilateral Leg Weakness Pleural Effusion Svt (Supraventricular Tachycardia) (Hcc) Atrophy of Gluteus Reinaldo Muscle Impingement Syndrome of Left Shoulder Cerebral Microvascular Disease Chest Pain Stage 3 Chronic Kidney Disease (Hcc) Iron Deficiency Anemia Atypical Chest Pain Encephalopathy Chronic Diastolic (Congestive) Heart Failure (Hcc) Anemia Due to Stage 3 Chronic Kidney Disease (Hcc) H/O Calcium Pyrophosphate Deposition Disease (Cppd) Primary Osteoarthritis of Right Knee PAST MEDICAL HISTORY Diagnosis Date - Breast cancer (HCC) 09/[address] Nina moraes ER positive s/p surgery/radiation and AI - Collagenous colitis 07/30/2017 On biopsy 2012. - Diarrhea hx of colitis - Diffuse cystic mastopathy - Dyspareunia - Essential hypertension - H/O complete eye exam 03/13/2011 no retinopathy detected -both eyes - [facility] - return in 1 year - Dr. Ruby - hair thinning sees Dr Choudhary - Hormone replacement therapy (HRT) 1974-present stopped by 09/2011 - hx of low vitamin D treated 08/2007 20.4 recheck only 23 9/08 improved to 54 - PMH - PAST MEDICAL HISTORY OF cardiac arrhythmia- resolved with change in medication - Stage 3 chronic kidney disease (HCC) 11/22/2019 - Symptomatic states associated with artificial menopause 1974 THBSO for fibroids age 40 - Vaginal atrophy 08/2015 offered vag DHEA - Vaginismus for PT PAST SURGICAL HISTORY Procedure Laterality Date - APPENDECTOMY - BREAST BIOPSY CORE 04/16/2009 right breast stereo core biopsy - BX OF BREAST; NEEDLE CORE 04/02/2008 right breast stereo core biopsy - BX/REMV,LYMPH NODE,DEEP AXILL 10/30/11 Right NL PM/SLNs - CATARACT EXTRACTION HX Bilateral 09/04, 12/06 - COLONOSCOP W/ OR W/O BRSH SPEC 09/08/13 Colonoscopy - MASTECTOMY, PARTIAL Right 10/30/2011 Right NL PM/SLNs - PAST SURGICAL HISTORY OF bilat vein stripping - PAST SURGICAL HISTORY OF Left 1991 left breast Atypical hyperplasia - TOTAL ABDOM HYSTERECTOMY early Hysterectomy, CAROL, due to fibroids. Social History Tobacco Use - Smoking status: Former Smoker Packs/day: 1.00 Years: 12.00 Pack years: 12.00 Types: Cigarettes Quit date: 01/19/1967 Years since quittin.5 - Smokeless tobacco: Never Used Substance Use Topics - Alcohol use: Yes Binge frequency: Never - Drug use: No FAMILY HISTORY Problem Relation Age of Onset - Alzheimer's Disease Mother hypertension/stroke d89 - Heart Father d 72 - other (emphseyma) Sister d 59 - Breast Cancer Maternal Aunt Review of Systems Lab and Test Review: Results for orders placed or performed during the hospital encounter of 07/05/20 EGD Result Value Ref Range Operating Room Nurse A31 Gastrointestinal Endoscopy Patient Name: Zenaida Evans Procedure Date: 07/05/2020 4:08 PM Date of : 1935 Admit Type: Outpatient Age: 85 Room: A31 Procedure 9 ([id number]) Gender: Female Note Status: Finalized Attending MD: Virgil Gomez MD Sedation Initiated: 1614 PM Procedure: Upper GI endoscopy Indications: Abnormal CT of the GI tract Providers: Virgil Gomez MD, David Pena MD (Fellow) Patient Profile: This is an 85 year old female. Refer to note in patient chart for documentation of history and physical. Referring Physician: Medicines: Fentanyl 50 micrograms IV, Midazolam 2 mg IV, Benzocaine spray Complications: No immediate complications. Requesting Provider: Procedure: Pre-Anesthesia Assessment: - Prior to the procedure, a History and Physical was per formed, and patient medications and allergies were reviewed. The patient's tolerance of previous anesthesia was also reviewed. The risks and benefits of the procedure and the sedation options and risks were discussed with the patient. All questions were answered, and informed consent was obtained. Prior Anticoagulants: The patient has taken no previous anticoagulant or antiplatelet agents. ASA Grade Assessment: II - A patient with mild systemic disease. After reviewing the risks and benefits, the patient was deemed in satisfactory condition to undergo the procedure. After obtaining informed consent, the endoscope was passed under direct vision. Throughout the procedure, the patient's blood pressure, pulse, and oxygen saturations were monitored continuously. The Endoscope was introduced through the mouth, and advanced to the second part of duodenum. The upper GI endoscopy was accomplished without difficulty. The patient tolerated the procedure well. Moderate Sedation: Findings: The Z-line was regular and was found 39 cm from the incisors. A 1 cm hiatal hernia was present. The entire examined stomach was normal. Normal gastric distension with insufflation. No masses or nodules identified in entire stomach. The examined duodenum was normal. Impression: - Z-line regular, 39 cm from the incisors. - 1 cm hiatal hernia. - Normal stomach. - Normal examined duodenum. - No specimens collected. Estimated Blood Loss : Estimated blood loss: none. Recommendation: - Discharge patient to home. - Resume previous diet. - Continue present medications. - Return to referring physician as previously scheduled. Attending Participation: I was present and participated during the entire procedure, including non-carrasquillo portions. Scope In: 4:17:27 PM Scope Out: 4:22:14 PM MD Virgil Lezama MD 07/05/2020 4:31:15 PM This report has been signed electronically by Virgil Gomez MD Number of Addenda: 0 Note Initiated On: 07/05/2020 4:08 PM *Note: Due to a large number of results and/or encounters for the requested time period, some results have not been displayed. A complete set of results can be found in Results Review. MRI brain 11/2019: no acute change. No acute infarct Subjective Patient-Entered Data: 07/10/20 - PHQ-2 Score: 2 PHQ-9 Score: 7 GENERAL NEUROLOGY SCORES PROMIS 10 07/10/2020 In general, would you say your health is: Fair In general, would you say your quality of life is: Fair In general, how would you rate your physical health? Fair In general, how would you rate your mental health, including your mood and your ability to think? Fair In general, how would you rate your satisfaction with your social activities and relationships? Fair To what extent are you able to carry out your everyday physical activities such as walking, climbing stairs, carrying groceries, or moving a chair? Moderately In general, please rate how well you carry out your usual social activities and roles. (This includes activities at home, at work and in your community, and responsibilities as a parent, child, spouse, employee, friend, etc.) Fair How would you rate your pain on average? 3 How would you rate your fatigue on average? Mild How often have you been bothered by emotional problems such as feeling anxious, depressed or irritable? Rarely PROMIS Adult Short Form-Global Health Score (Physical) 42.3 PROMIS Adult Short Form-Global Health Score (Mental) 38.8 Depression Screening 10/18/2019 07/10/2020 07/10/2020 PHQ-2 Score 0 2 2 PHQ-9 Score - 7 7 SLEEP APNEA SCORE 07/10/2020 Probability of moderate-severe sleep apnea (%) SAPS V2 45.04 (Sleep study not recommended) AVERAGE SLEEP 24 HOURS 07/10/2020 07/10/2020 Average sleep last 24 hrs 5 5 PROMIS CAT Sleep Disturbance 07/10/2020 PROMIS Sleep Disturbance T-Score 58 (mild) Total time spent on visit (>50% on discussion and coordination of care): 40 minutes MD Aarti Schroeder MD 07/10/2020 11:32 AM Addendum --We will do an MRI brain to rule out metastatic lesions causing nausea. If it's negative, then I don't think the nausea is caused by neurological issues and you can follow up with your family doctor and GI for the nausea. --If MRI is abnormal, I'll let you know --Please work with your family doctor about the blood pressure. It's high today. Please consider long acting medication instead of short acting medicines. Referring Provider: SUSANNAH CLEMENTE [[id number]] Allergies As of Date: 07/10/2020 Noted Allergy Reaction SCOPOLAMINE 10/30/2011 1 - Mental Status Change Comments: Hallucinations AMLODIPINE 03/01/2020 14 - Other: See Comments Comments: Significant swelling even on 2.5 mg per day. HCTZ (THIAZIDES) 12/15/2019 15 - Contraindication-Medical [place]* Comments: Hyponatremia at 12.5 mg. IRON 09/03/2005 8 - GI Upset Comments: CAN TAKE SLO-IRON LIPITOR (ATORVASTATIN) 11/09/2019 17 - Myalgia LOSARTAN 11/28/2019 14 - Other: See Comments Comments: BRIGHT with elevated potassium and creatinine. SPIRONOLACTONE 07/10/2020 5 - Intolerance Comments: Blood pressure went up TALWIN (PENTAZOCINE LACTATE) 09/30/2009 1 - Mental Status Change Comments: HALLUCINATIONS VERAPAMIL HCL 05/06/2016 8 - GI Upset Comments: constipation Date Reviewed: 07/05/2020 Reviewed by: Iqra Zhang) CORINNA Borrero - Fully Assessed Reason for Visit: Hypertension [168] Primary Visit Diagnosis:Intractable headache, unspecified chronicity pattern, unspecified headache type [R51] Other Visit Diagnoses:Bilateral leg weakness [R29.898] Essential hypertension [I10] Atherosclerosis of 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 [I25.10] Hypothyroidism, unspecified type [E03.9] Malignant neoplasm of lower-outer quadrant of right female breast, unspecified estrogen receptor status (HCC) [C50.511] Basal cell carcinoma, face [C44.310] Order(s):MRI BRAIN WO IVCON [[id number]] Order #: [id number] FUTURE Prescriptions as of 07/10/2020 Sig: COLCHICINE 0.6 MG TABLET TAKE 1/2 TABLET BY MOUTH ONCE* POLYETHYLENE GLYCOL 3350 17 G* Use as directed for Miralax /* GATORADE SPORTS DRINK Use as directed for Miralax /* BISACODYL 5 MG TABLET Use as directed for Miralax /* PROMETHAZINE 12.5 MG TABLET Take 1 tablet by mouth every * DICLOFENAC 1 % TOPICAL GEL Apply to affected area four t* FUROSEMIDE 20 MG TABLET Take 1 tablet by mouth once d* GABAPENTIN 100 MG CAPSULE TAKE 2 CAPSULES BY MOUTH AT N* PANTOPRAZOLE 20 MG TABLET,DEL* Take 1 tablet by mouth daily * HYDRALAZINE 25 MG TABLET TAKE 1 TABLET BY MOUTH THREE * LABETALOL 100 MG TABLET Take 1 tablet by mouth three * PEG 3350-ELECTROLYTES 236 GRA* Refer to printed patient inst* SYNTHROID 88 MCG TABLET Take 1 tablet by mouth once d* ASPIRIN 81 MG TABLET,DELAYED * Take 1 tablet by mouth once d* MELATONIN 5 MG CAPSULE Take 1 capsule by mouth at be* CHOLECALCIFEROL (VITAMIN D3) * Take 1 capsule by mouth once * BIOTIN 5 MG TABLET Take 5 mg by mouth once daily. Problem List As Of Date 07/10/2020 Noted Resolved Essential hypertension [I10] 07/06/2003 More... PALPITATIONS [R00.2] 07/06/2003 08/31/2008 Coronary atherosclerosis [I25.10] 07/06/2003 More... ALOPECIA NOS [L65.9] 07/06/2003 08/31/2008 ANEMIA NOS [D64.9] 06/09/2005 08/31/2008 hx of telogen effluvium [L65.0] 06/09/2005 DIARRHEA NOS [R19.7] 08/31/2008 RETINAL VASCULAR CHANGES [H35.019] 08/26/2007 More... GOITER NOS [E04.9] 08/26/2007 01/09/2016 OSTEOARTHRITIS [M19.90] 08/26/2007 01/09/2016 More... VISUAL REFRACTION ERROR [H52.6] 08/26/2007 01/09/2016 VARICOSE VEINS [I83.90] 08/26/2007 CERVICAL OSTEOARTHRITIS [M47.812] 08/26/2007 Sleep disturbance, unspecified [G47.9] 08/26/2007 01/09/2016 URINARY CALCULUS NOS [N20.9] 08/26/2007 More... PERS HX OF IRRADIATION-face and neck [Z92.3] 08/26/2007 More... Unspecified hearing loss [H91.90] 08/26/2007 01/09/2016 IRRITABLE BOWEL SYNDROME [K58.9] 08/26/2007 UNSP ABNORMAL MAMMOGRAM [R92.8] 03/19/2008 04/10/2008 DIFFUS CYSTIC MASTOPATHY [N60.19] SYMPTOMATIC ARTIFIC MENOPAUSE STATES [E89.41] Need for prophylactic hormone replacement thera* 09/10/2015 VITAMIN D DEFICIENCY NOS [E55.9] 06/29/2008 Bcc L cheek 02/22 [C44.319] 04/24/2008 More... MAMMOGRAPHIC MICROCALCIFICATION [R92.0] 05/09/2008 Unspecified hypertrophic and atrophic condition*06/14/2008 08/12/2015 Scar condition and fibrosis of skin [L90.5] 06/14/2008 08/12/2015 CKD (chronic kidney disease) stage 3, GFR 30-59*05/20/2010 04/26/2020 More... Hair Loss [L65.9] 06/18/2010 Thyroid Disorder [E07.9] 06/18/2010 Hypothyroid [E03.9] 05/21/2011 09/21/2013 Visit for gynecologic examination [Z01.419] 10/05/2011 hx of low vitamin D treated [E55.9] 08/18/2007 More... Right Breast Cancer [C50.919] 10/13/2011 More... hx of breast cancer ER positive [C50.919] 09/10/2015 Stiffness in joint [M25.60] 12/02/2011 Malignant neoplasm of upper-inner quadrant of f*01/05/2012 Basal cell carcinoma, face [C44.310] 07/20/2012 Hypothyroidism [E03.9] 09/21/2013 More... Colitis [K52.9] 04/13/2014 07/30/2017 Greater trochanteric bursitis of left hip [M70.*08/07/2014 Hip arthritis [M16.10] 08/07/2014 Left hip impingement syndrome [M25.852] 08/07/2014 Tendinopathy of left gluteus medius [M67.952] 08/23/2014 Abnormality of gait [R26.9] 09/09/2015 Vaginal atrophy [N95.2] Dyspareunia [IJL8361] Seborrheic dermatitis [L21.9] 11/20/2015 Vaginismus [N94.2] Elevated blood uric acid level [E79.0] 11/10/2016 Localized edema [R60.0] 11/10/2016 Venous stasis [I87.8] 12/22/2016 Strain of rotator cuff [S46.019A] 01/06/2017 Collagenous colitis [K52.831] 07/30/2017 More... Bilateral leg weakness [R29.898] 04/06/2018 Pleural effusion [J90] 04/21/2018 SVT (supraventricular tachycardia) (HCC) [I47.1]01/12/2019 Atrophy of gluteus reinaldo muscle [M62.58] 01/17/2019 Impingement syndrome of left shoulder [M75.42] 03/01/2019 Headache [R51] 10/18/2019 10/22/2019 Delirium [R41.0] 10/19/2019 10/22/2019 Cerebral microvascular disease [I67.9] 10/26/2019 Chest pain [R07.9] 11/22/2019 More... Stage 3 chronic kidney disease (HCC) [N18.3] 11/22/2019 More... Hyperkalemia [E87.5] 11/22/2019 12/15/2019 More... BRIGHT (acute kidney injury) (HCC) [N17.9] 11/22/2019 12/15/2019 More... Iron deficiency anemia [D50.9] 11/22/2019 More... Atypical chest pain [R07.89] 11/22/2019 Hypertensive emergency [I16.1] 12/22/2019 05/02/2020 Encephalopathy [G93.40] 12/22/2019 Chronic diastolic (congestive) heart failure (H*04/22/2020 Anemia due to stage 3 chronic kidney disease (H*04/26/2020 H/O calcium pyrophosphate deposition disease (C*05/02/2020 More... Primary osteoarthritis of right knee [M17.11] 06/14/2020 More... Other instructions from your clinician: --We will do an MRI brain to rule out metastatic lesions causing nausea. If it's negative, then I don't think the nausea is caused by neurological issues and you can follow up with your family doctor and GI for the nausea. --If MRI is abnormal, I'll let you know --Please work with your family doctor about the blood pressure. It's high today. Please consider long acting medication instead of short acting medicines. Disposition: Return if symptoms worsen or fail to improve. Follow-up and Disposition History Recorded Encounter Status:Closed by AARTI RECINOS MD on 07/10/20 [facility] PROGRESSon 07-10-2020 PROGRESS HNO ID: [id number] Author: Aarti Recinos Service: ? Author Type: Physician Type: Progress Notes Filed: 07/10/2020 12:24 PM Note Text: [facility] Neurology Follow up/ Established patient visit Individuals who were included in, or assisted with the encounter were: ? Zenaida Evans ? Aarti Recinos MD ? Chief Complaint/Issues: Zenaida Evans is a 84 year old left handed female who presented to neurology clinic as follow up for hospital admissions of hypertensive emergency. Relevant Medical Issues: PMHx?of: - Breast cancer (ER+, s/p surgery, radiation, and AI). - Collagenous colitis (dx on biopsy 2012). - Essential HTN.? -?PSVT??(saw cardiology in 2005).? - Hyperlipidemia. - Vitamin D deficiency. - CKD (Cr 1.1-1.2) - Hypothyroidism on levothyroxine Most Recent Neurological Assessment and Plan: Last Filed Values None Current Treatment and Relevant Treatment History: ? She presented?to OSH on 10/15 after developing slurred speech, disorientation, throbbing headache, and generalized weakness after getting out of the shower. She had weakness in her legs and a shuffling gait, per pt report. She was having difficulty speaking/finding words. This episode lasted ~30 min and was resolved upon arrival in the ED. She had a 1 week history of difficulty remembering, which is unusual for her, and a 2 week history of intermittent ataxia. 911 was called and the patient was taken to the [facility] ED. In the ED: - VS: BP 221/110, HR 80, RR 13, O2 sat 97% on RA. - NIHSS 1. - PE: minimal RLE weakness. - NCCT head: no acute infarct or hemorrhage. Small old lacunar infarct on R basal ganglia - Pt was seen by tele-neurology and no tPA was administered. - Labs: BUN 25, Cr 1.46 (Cr 1.06 09/29/19). - EKG: NSR with no ST changes. - Troponin: negative. - CXR: normal. - Pt got 1 dose IV labetalol with slight decrease in BP, but BP started to rise again. Pt was started on IV nicardipine drip and was admitted to the ICU for hypertensive emergency and suspected stroke. ? ? While in the ICU: - For her HTN emergency:?pt was taken off cardizem drip and started on home anti-hypertensive regimen with some SBPs in the 180s, renal US w/o significant stenosis of renal arteries. Anti-hypertensive regimen was titrated but optimal BP control was not attained. ? ? - For her suspected stroke:?Originally patient's aphasia and LE drift resolved overnight the first night.?echo normal (LVEF 65%, G1DD) w/o shunt, MRI brain without acute infarct/has chronic changes. Pt had a stroke alert called 10/17 with NIHSS 10 (not gazing to the left, L leg drift, mild/mod aphasia, ataxia, inattentiveness to L side) -->?NIHSS 8, CT and CTA head and neck unremarkable. Neuro was consulted and thought that symptoms were 2/2 fluctuation in BP. She again had generalized weakness upon trying to ambulate this morning (10/18/19).? ? The patient was transferred to [facility] for further management of her BP. Upon arrival on the [facility], the patient was alert and oriented. She was a good historian and answered questions appropriately. She did complain of a 9/10 headache, which is unchanged from admission at the OSH. Otherwise, no acute complaints or concerns. Upon questioning her about her headache, she states that it is the worse headache of her life, especially considering that she does not typically have headaches. She denies blurry vision, chest pain, or heart palpitations. Denies hx of seizures.? HPI/Interval History: She looks very worried today and said she generally not feeling well. She was admitted again in Nov 2019 for chest pain. She has not been feeling well because of nausea since May. She endorsed slight headache along with the nausea. She did have nausea before and then felt ok for a while. This time it started in May and has not gone away since. She had extensive GI work up. She takes Zofran for it. BP is high today. She takes all short acting BP meds, three times a day. No focal weakness and numbness. General Examination: BP 172/71 (BP Site: Left Arm, BP Position: Sitting, BP Cuff Size: Regular Adult) Pulse 77 Temp 36.9 ?C (98.5 ?F) Wt 66.5 kg (146 lb 8 oz) SpO2 97% BMI 23.65 kg/m? General Exam Neurological Exam Assessment AND Plan 07/10/2020 Aarti Recinos MD General Neurology Assessment Zenaida Evans is a 84 year old left handed female who presented to neurology clinic w [place] breast cancer, collagenous colitis, uncontoled HTN, hyperlipidemia, Vit D deficiency, CKD, hypothyroidism as follow up after hypertensive emergency and associated neurological symptoms. --Although I was not treating her during the hospitalization, it sounds like she had hypertensive emergency and encepphalopathy which lingered for a few days. Negative MRI finding on DWI argues against stroke given that she continue to have the symptoms for several days. She eventually got better. BP is better controlled now. --hypertension, used to be poorly controled. With chronic small vessel disease on MRI. It's ok to leave her on aspirin. --Nausea: I suspect that this is multifactorial: overall not feeling well, insomnia, depression, hypertension, medication side effect et al. I'll do an MRI brain given her cancer history and persistent nausea. She has CKD so I would not give her contrast at this time. If MRI brain is normal, I doubt this is caused by neurological issues. Plan --MRI brain to rule out malignancy --defer to PCP to manage hypertension. Prefers long acting meds --IF MRI brain is normal, she may follow up with me as needed. No diagnosis found. No follow-ups on file. ========= Data Review Objective Current Outpatient Medications Medication Sig - colchicine 0.6 mg tablet TAKE 1/2 TABLET BY MOUTH ONCE DAILY - polyethylene glycol 3350 (MIRALAX, GLYCOLAX) 17 gram/dose powder Use as directed for Miralax / Gatorade Bowel Prep Kit - Gatorade Sports Drink Use as directed for Miralax / Gatorade Bowel Prep Kit - Bisacodyl (DULCOLAX) 5 mg tab Use as directed for Miralax / Gatorade Bowel Prep Kit - promethazine (PHENERGAN) 12.5 mg tablet Take 1 tablet by mouth every 6 hours as needed for Nausea/Vomiting. - diclofenac sodium (VOLTAREN) 1 % topical gel Apply to affected area four times daily. - furosemide (LASIX) 20 mg tablet Take 1 tablet by mouth once daily. - gabapentin (NEURONTIN) 100 mg capsule TAKE 2 CAPSULES BY MOUTH AT NIGHT. - pantoprazole DR (PROTONIX) 20 mg tablet Take 1 tablet by mouth daily before breakfast. Take on empty stomach, 1/2 hr before meal. - hydrALAZINE (APRESOLINE) 25 mg tablet TAKE 1 TABLET BY MOUTH THREE TIMES A DAY - labetalol (TRANDATE) 100 mg tablet Take 1 tablet by mouth three times daily. - peg 3350-Electrolytes (GOLYTELY) 236-22.74-6.74 -5.86 gram suspension Refer to printed patient instructions that will be mailed to you. - SYNTHROID 88 mcg tablet Take 1 tablet by mouth once daily. - aspirin, enteric coated (ECOTRIN LOW STRENGTH) 81 mg EC tablet Take 1 tablet by mouth once daily. - Melatonin 5 mg cap Take 1 capsule by mouth at bedtime as needed. - Cholecalciferol, Vitamin D3, (VITAMIN D-3) 2,000 unit cap Take 1 capsule by mouth once daily. - biotin 5 mg tab Take 5 mg by mouth once daily. No current facility-administered medications for this visit. 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 Bcc L cheek 02/22 Mammographic Microcalcification Hair Loss Thyroid Disorder Visit for Gynecologic Examination hx of low vitamin D treated Right Breast Cancer Stiffness in Joint Malignant Neoplasm of Upper-Inner Quadrant of Female Breast (Hcc) Basal Cell Carcinoma, Face Hypothyroidism Greater Trochanteric Bursitis of Left Hip Hip Arthritis Left Hip Impingement Syndrome Tendinopathy of Left Gluteus Medius Abnormality of Gait Vaginal Atrophy Dyspareunia Seborrheic Dermatitis Vaginismus Elevated Blood Uric Acid Level Localized Edema Venous Stasis Strain of Rotator Cuff Collagenous Colitis Bilateral Leg Weakness Pleural Effusion Svt (Supraventricular Tachycardia) (Hcc) Atrophy of Gluteus Reinaldo Muscle Impingement Syndrome of Left Shoulder Cerebral Microvascular Disease Chest Pain Stage 3 Chronic Kidney Disease (Hcc) Iron Deficiency Anemia Atypical Chest Pain Encephalopathy Chronic Diastolic (Congestive) Heart Failure (Hcc) Anemia Due to Stage 3 Chronic Kidney Disease (Hcc) H/O Calcium Pyrophosphate Deposition Disease (Cppd) Primary Osteoarthritis of Right Knee PAST MEDICAL HISTORY Diagnosis Date - Breast cancer (HCC) 09/[address] Wood right ER positive s/p surgery/radiation and AI - Collagenous colitis 07/30/2017 On biopsy 2012. - Diarrhea hx of colitis - Diffuse cystic mastopathy - Dyspareunia - Essential hypertension - H/O complete eye exam 03/13/2011 no retinopathy detected -both eyes - [facility] - return in 1 year - Dr. Ruby - hair thinning sees Dr Choudhary - Hormone replacement therapy (HRT) 1974-present stopped by 09/2011 - hx of low vitamin D treated 08/2007 20.4 recheck only 23 06/25 improved to 54 - PMH - PAST MEDICAL HISTORY OF cardiac arrhythmia- resolved with change in medication - Stage 3 chronic kidney disease (HCC) 11/22/2019 - Symptomatic states associated with artificial menopause 1974 THBSO for fibroids age 40 - Vaginal atrophy 08/2015 offered vag DHEA - Vaginismus for PT PAST SURGICAL HISTORY Procedure Laterality Date - APPENDECTOMY - BREAST BIOPSY CORE 04/16/2009 right breast stereo core biopsy - BX OF BREAST; NEEDLE CORE 04/02/2008 right breast stereo core biopsy - BX/REMV,LYMPH NODE,DEEP AXILL 10/30/11 Right NL PM/SLNs - CATARACT EXTRACTION HX Bilateral 09/04, 12/06 - COLONOSCOP W/ OR W/O BRSH SPEC 09/08/13 Colonoscopy - MASTECTOMY, PARTIAL Right 10/30/2011 Right NL PM/SLNs - PAST SURGICAL HISTORY OF bilat vein stripping - PAST SURGICAL HISTORY OF Left 1991 left breast Atypical hyperplasia - TOTAL ABDOM HYSTERECTOMY early 1969's Hysterectomy, CAROL, due to fibroids. Social History Tobacco Use - Smoking status: Former Smoker Packs/day: 1.00 Years: 12.00 Pack years: 12.00 Types: Cigarettes Quit date: 01/19/1967 Years since quittin.5 - Smokeless tobacco: Never Used Substance Use Topics - Alcohol use: Yes Binge frequency: Never - Drug use: No FAMILY HISTORY Problem Relation Age of Onset - Alzheimer's Disease Mother hypertension/stroke d89 - Heart Father d 72 - other (emphseyma) Sister d 59 - Breast Cancer Maternal Aunt Review of Systems Lab and Test Review: Results for orders placed or performed during the hospital encounter of 07/05/20 EGD Result Value Ref Range Operating Room Nurse A31 Gastrointestinal Endoscopy Patient Name: Zenaida Evans Procedure Date: 07/05/2020 4:08 PM Date of : 1935 Admit Type: Outpatient Age: 85 Room: A31 Procedure 9 ([id number]) Gender: Female Note Status: Finalized Attending MD: Virgil Gomez MD Sedation Initiated: 1614 PM Procedure: Upper GI endoscopy Indications: Abnormal CT of the GI tract Providers: Virgil Gomez MD, David Pena MD (Fellow) Patient Profile: This is an 85 year old female. Refer to note in patient chart for documentation of history and physical. Referring Physician: Medicines: Fentanyl 50 micrograms IV, Midazolam 2 mg IV, Benzocaine spray Complications: No immediate complications. Requesting Provider: Procedure: Pre-Anesthesia Assessment: - Prior to the procedure, a History and Physical was per formed, and patient medications and allergies were reviewed. The patient's tolerance of previous anesthesia was also reviewed. The risks and benefits of the procedure and the sedation options and risks were discussed with the patient. All questions were answered, and informed consent was obtained. Prior Anticoagulants: The patient has taken no previous anticoagulant or antiplatelet agents. ASA Grade Assessment: II - A patient with mild systemic disease. After reviewing the risks and benefits, the patient was deemed in satisfactory condition to undergo the procedure. After obtaining informed consent, the endoscope was passed under direct vision. Throughout the procedure, the patient's blood pressure, pulse, and oxygen saturations were monitored continuously. The Endoscope was introduced through the mouth, and advanced to the second part of duodenum. The upper GI endoscopy was accomplished without difficulty. The patient tolerated the procedure well. Moderate Sedation: Findings: The Z-line was regular and was found 39 cm from the incisors. A 1 cm hiatal hernia was present. The entire examined stomach was normal. Normal gastric distension with insufflation. No masses or nodules identified in entire stomach. The examined duodenum was normal. Impression: - Z-line regular, 39 cm from the incisors. - 1 cm hiatal hernia. - Normal stomach. - Normal examined duodenum. - No specimens collected. Estimated Blood Loss : Estimated blood loss: none. Recommendation: - Discharge patient to home. - Resume previous diet. - Continue present medications. - Return to referring physician as previously scheduled. Attending Participation: I was present and participated during the entire procedure, including non-carrasquillo portions. Scope In: 4:17:27 PM Scope Out: 4:22:14 PM MD Virgil Lezama MD 07/05/2020 4:31:15 PM This report has been signed electronically by Virgil Gomez MD Number of Addenda: 0 Note Initiated On: 07/05/2020 4:08 PM *Note: Due to a large number of results and/or encounters for the requested time period, some results have not been displayed. A complete set of results can be found in Results Review. MRI brain 11/2019: no acute change. No acute infarct Subjective Patient-Entered Data: 07/10/20 - PHQ-2 Score: 2 PHQ-9 Score: 7 GENERAL NEUROLOGY SCORES PROMIS 10 07/10/2020 In general, would you say your health is: Fair In general, would you say your quality of life is: Fair In general, how would you rate your physical health? Fair In general, how would you rate your mental health, including your mood and your ability to think? Fair In general, how would you rate your satisfaction with your social activities and relationships? Fair To what extent are you able to carry out your everyday physical activities such as walking, climbing stairs, carrying groceries, or moving a chair? Moderately In general, please rate how well you carry out your usual social activities and roles. (This includes activities at home, at work and in your community, and responsibilities as a parent, child, spouse, employee, friend, etc.) Fair How would you rate your pain on average? 3 How would you rate your fatigue on average? Mild How often have you been bothered by emotional problems such as feeling anxious, depressed or irritable? Rarely PROMIS Adult Short Form-Global Health Score (Physical) 42.3 PROMIS Adult Short Form-Global Health Score (Mental) 38.8 Depression Screening 10/18/2019 07/10/2020 07/10/2020 PHQ-2 Score 0 2 2 PHQ-9 Score - 7 7 SLEEP APNEA SCORE 07/10/2020 Probability of moderate-severe sleep apnea (%) SAPS V2 45.04 (Sleep study not recommended) AVERAGE SLEEP 24 HOURS 07/10/2020 07/10/2020 Average sleep last 24 hrs 5 5 PROMIS CAT Sleep Disturbance 07/10/2020 PROMIS Sleep Disturbance T-Score 58 (mild) Total time spent on visit (>50% on discussion and coordination of care): 40 minutes Aarti Recinos MD Normal [facility] Basic Metabolic Profile (BMP )on 10-18-2019 Calcium [Mass/Vol] 8.0 mg/dL Low 8.5-10.1 [facility] Comment on above: Performed By: #### L 500.2500 ####[facility] [address] [place], [address] Chloride [Moles/Vol] 113 mmol/L High 98-107 [facility] Comment on above: Performed By: #### L 500.2500 ####[facility] [address] [place], [address] CO2 [Moles/Vol] 26.0 mmol/L Normal 21.0-32.0 [facility] Comment on above: Performed By: #### L 500.2500 ####[facility] [address] [place], [address] Creatinine [Mass/Vol] 1.13 mg/dL High 0.55-1.02 [facility] Comment on above: Result Comment: The validity of the calculated GFR AND GFRAA in patients over 70 years has not been determined. Clinical correlation is essential. Performed By: #### L 500.2500 ####[facility] [address] [place], [address] EST GFR - AA 59 mL/min Low >60 [facility] Comment on above: Result Comment: Afri can Bulgarian GFR Calc Performed By: #### L 500.2500 ####[facility] [address] [place], [address] Estimated CRCL 35.31 ml/min Normal [facility] Comment on above: Performed By: #### L 500.2500 ####[facility] [address] [place], [address] GAP 4 Low 5-15 [facility] Comment on above: Performed By: #### L 500.2500 ####[facility] [address] [place], [address] GFR/1.73 sq M predicted among non-blacks MDRD (S/P/Bld) [Vol rate/Area] 49 mL/min/{1.73_m2} Low >60 [facility] Comment on above: Result Comment: Non- GFR Calc Performed By: #### L 500.2500 ####[facility] [address] [place], [address] Glucose [Mass/Vol] 107 mg/dL High 74-106 [facility] Comment on above: Result Comment: Fast ing Glucose result from 100 to 125 mg/dL suggests IMPAIRED HOMEOSTASIS per A.D.A. criteria. Please note revised GLUCOSE reference range effective 2017. Performed By: #### L 500.2500 ####[facility] [address] [place], [address] Potassium [Moles/Vol] 4.2 mmol/L Normal 3.5-5.1 [facility] Comment on above: Performed By: #### L 500.2500 ####[facility] [address] [place], [address] Sodium [Moles/Vol] 143 mmol/L Normal 136-145 [facility] Comment on above: Performed By: #### L 500.2500 ####[facility] [address] [place], [address] Urea nitrogen [Mass/Vol] 19 mg/dL High 7-18 [facility] Comment on above: Performed By: #### L 500.2500 ####[facility] [address] [place], [address] Urea nitrogen [Mass/Vol] 16.8 RATIO Normal 10-20 [facility] Comment on above: Performed By: #### L 500.2500 ####[facility] [address] [place], [address] Bedside Glucoseon 10-18-2019 BEDSIDE GLU 97 mg/dL Normal 70-110 [facility] Comment on above: Result Comment: CORNELIA GRANDE OF PATIENT CARE PER NURSING PROTOCOL Performed By: #### L 501.080 ####[facility] [address] [place] [address] Brain/Head without Contrasto n 10-18-2019 Brain/Head without Contrast [facility] [address] [place] [address] Brain/Head without Contrast MR#: [id number] Acct: [id number] Name: ZENAIDA EVANS Rep #: [id number] : 1935 F 84 From: Hossein Castro MD PCP: Susannah Clemente MD Status: ADM IN Study: Brain/Head without Contrast Date of Exam: 10/17/19 Exam# [id number] Ordering Dr: Serg Pinto MD ADDENDUM by Hossein Castro M.D. on 10/17/19 at 2230 STUDY: CT BRAIN WITHOUT CONTRAST REASON FOR EXAM: Female, 84 years old. STROKE RADIATION DOSAGE (If Supplied By Facility): CTDIvol = ( 44.99 ) mGy, DLP = ( 796.11 ) mGycm TECHNIQUE: Transaxial CT imaging of the brain was performed without administration of intravenous contrast material. Individualized dose optimization techniques were used for this CT. COMPARISON: Previous study of earlier this date FINDINGS: Normal soft tissue structures. Normal calvarium. Normal size ventricles and extra-axial spaces for the patient''s age. There are areas of decreased attenuation within the white matter tracts of the supratentorial brain, consistent with microvascular disease changes. 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 Normal brainstem. Normal cerebellum. There is no intracranial hemorrhage. There are no findings of an acute ischemic infarction. Normal visualized paranasal sinuses. 10/17/192229 Date cc: Susannah Clemente MD; Serg Pinto MD * Signed ADDENDUM by Hossein Castro M.D. on 10/17/19 at 2230 STUDY: CT BRAIN WITHOUT CONTRAST REASON FOR EXAM: Female, 84 years old. STROKE RADIATION DOSAGE (If Supplied By Facility): CTDIvol = ( 44.99 ) mGy, DLP = ( 796.11 ) mGycm TECHNIQUE: Transaxial CT imaging of the brain was performed without administration of intravenous contrast material. Individualized dose optimization techniques were used for this CT. COMPARISON: Previous study of earlier this date FINDINGS: Normal soft tissue structures. Normal calvarium. Normal size ventricles and extra-axial spaces for the patient''s age. There are areas of decreased attenuation within the white matter tracts of the supratentorial brain, consistent with microvascular disease changes. 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 Normal brainstem. Normal cerebellum. There is no intracranial hemorrhage. There are no findings of an acute ischemic infarction. Normal visualized paranasal sinuses. 10/17/192229 Date cc: Susannah Clemente MD; Serg Pinto MD * Signed ADDENDUM by Hossein Castor M.D. on 10/17/[address]/Brain/Head without Contrast IMPRESSION: Chronic involutional changes of the brain. There is again no evidence of intracranial hemorrhage or acute infarct. 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 If clinically indicated, CTA brain and/or MRI may be helpful for further evaluation at this time. N.B. : The above information has been verbally conveyed by Hossein Castro MD to Carol Patel RN, on 10/17/2019 22:32:10 (ET). Electronically Signed: Hossein Castro MD at 22:30 EST , Service support , 10/17/192238 Date cc: Susannah Clemente MD; Serg Pinto MD * Signed ADDENDUM by Hossein Castro M.D. on 10/17/[address]/Brain/Head without Contrast IMPRESSION: Chronic involutional changes of the brain. There is again no evidence of intracranial hemorrhage or acute infarct. 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 If clinically indicated, CTA brain and/or MRI may be helpful for further evaluation at this time. N.B. : The above information has been verbally conveyed by Hossein Castro MD to SERG PINTO on 10/17/2019 22:27:36 (ET). Electronically Signed: Hossein Castro MD at 22:30 EST , Service support , 10/17/192236 Date cc: Susannah Clemente MD; Serg Pinto MD * Signed STUDY: CT BRAIN WITHOUT CONTRAST REASON FOR EXAM: Female, 84 years old. STROKE RADIATION DOSAGE (If Supplied By Facility): CTDIvol = ( 44.99 ) mGy, DLP = ( 796.11 ) mGycm TECHNIQUE: Transaxial CT imaging of the brain was performed without administration of intravenous contrast material. Individualized dose optimization techniques were used for this CT. COMPARISON: Previous study of earlier this date FINDINGS: Normal soft tissue structures. Normal calvarium. Normal size ventricles and extra-axial spaces for the patient''s age. There are areas of decreased attenuation within the white matter tracts of the supratentorial brain, consistent with microvascular disease changes. 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 Normal brainstem. Normal cerebellum. There is no intracranial hemorrhage. There are no findings of an acute ischemic infarction. Normal visualized paranasal sinuses. CT/Brain/Head without Contrast IMPRESSION: Chronic involutional changes of the brain. There is again no evidence of intracranial hemorrhage or acute infarct. 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 If clinically indicated, CTA brain and/or MRI may be helpful for further evaluation at this time. N.B. : The above information has been verbally conveyed by Hossein Castro MD to SERG PINTO on 10/17/2019 22:27:36 (ET). Electronically Signed: Hossein Castro MD at 22:30 EST , Service support , CC: Susannah Clemente MD; Serg Pinto MD Patient Svcs Mgr: Signed Normal [facility] CBC W/Diff, Automatedon 01-0 Absolute Neut 3.6 X10 3/uL Normal 2.0-7.7 [facility] Comment on above: Performed By: #### L 100.0100 ####[facility] [address] [place], [address] Basophils/100 WBC (Bld) 0.4 % Normal 0-1 [facility] Comment on above: Performed By: #### L 100.0100 ####[facility] [address] [place], [address] Eosinophils/100 WBC (Bld) 3.0 % Normal 0-5 [facility] Comment on above: Performed By: #### L 100.0100 ####[facility] [address] [place], [address] Erythrocyte distribution width (RBC) [Ratio] 14.2 % Normal 11.6-14.6 [facility] Comment on above: Performed By: #### L 100.0100 ####[facility] [address] [place], [address] Hematocrit (Bld) [Volume fraction] 31.7 % Low 37-47 [facility] Comment on above: Performed By: #### L 100.0100 ####[facility] [address] [place], [address] Hemoglobin (Bld) [Mass/Vol] 10.2 g/dL Low 12.0-15.0 [facility] Comment on above: Performed By: #### L 100.0100 ####[facility] [address] [place], [address] IM GRAN % 0.400 % Normal 0.0-0.9 [facility] Comment on above: Result Comment: IG% - Immature Granulocytes (promyelocytes, myelocytes and metamyelocytes) > 1% indicates that a LEFT SHIFT is Present. Performed By: #### L 100.0100 ####[facility] [address] [place], [address] Lymphocytes (Bld) [#/Vol] 0.94 X10 3/uL Normal 0.83-4.51 [facility] Comment on above: Performed By: #### L 100.0100 ####[facility] [address] [place], [address] Lymphocytes/100 WBC (Bld) 17.6 % Low 19-41 [facility] Comment on above: Performed By: #### L 100.0100 ####[facility] [address] [place], [address] MCH (RBC) [Entitic mass] 33.1 pg High 27.0-32.0 [facility] Comment on above: Performed By: #### L 100.0100 ####[facility] [address] [place], [address] MCHC (RBC) [Mass/Vol] 32.2 g/dL Normal 32-36 [facility] Comment on above: Performed By: #### L 100.0100 ####[facility] [address] [place], [address] MCV (RBC) [Entitic vol] 102.9 fL High 81-99 [facility] Comment on above: Performed By: #### L 100.0100 ####[facility] [address] [place], [address] Monocytes/100 WBC (Bld) 11.1 % High 0-10 [facility] Comment on above: Performed By: #### L 100.0100 ####[facility] [address] [place], [address] Neutrophils/100 WBC (Bld) 67.5 % Normal 47-70 [facility] Comment on above: Performed By: #### L 100.0100 ####[facility] [address] [place], [address] NRBC, FLAGGED 0 % Normal 0-5 [facility] Comment on above: Performed By: #### L 100.0100 ####[facility] [address] [place], [address] Platelet mean volume (Bld) [Entitic vol] 9.7 fL Normal 6.2-12.0 [facility] Comment on above: Performed By: #### L 100.0100 ####[facility] [address] [place], [address] Platelets (Bld) [#/Vol] 161 10*3/uL Normal 150-450 [facility] Comment on above: Performed By: #### L 100.0100 ####[facility] [address] [place], [address] RBC (Bld) [#/Vol] 3.08 M/mm3 Low 4.2-5.4 [facility] Comment on above: Performed By: #### L 100.0100 ####[facility] [address] [place], [address] RDW SD 53.5 fl High 35.1-43.9 [facility] Comment on above: Performed By: #### L 100.0100 ####[facility] [address] [place], [address] WBC (Bld) [#/Vol] 5.3 10*3/uL Normal 4.4-11.0 [facility] Comment on above: Performed By: #### L 100.0100 ####[facility] [address] [place], [address] CTA Head AND Neck W/ Contras ton 10-18-2019 CTA Head AND Neck W/ Contrast [facility] Imaging Services [address] [place] [address] CTA Head AND Neck W/ Contrast MR#: [id number] Acct: [id number] Name: ZENAIDA EVANS Rep #: [id number] : 1935 F 84 From: Triny Villanueva MD PCP: Susannah Clemente MD Status: ADM IN Study: CTA Head AND Neck W/ Contrast Date of Exam: 10/17/19 Exam# [id number] Ordering Dr: Segr Pinto MD ADDENDUM by Triny Villanueva MD on 10/17/19 at 2236 HISTORY: STROKE TECHNIQUE: CT angiogram of the brain was performed with IV contrast. CT angiogram images of the neck were obtained with IV contrast. 3D reconstructions were reviewed to aid in vascular evaluation. NASCET criteria using the distal internal carotid arteries were used for evaluation of stenoses. A radiation dose optimization technique was used for this scan. IV Contrast dosage and agent: 100 ml [id number] Number of images including paperwork: [phone] COMPARISON: None CTA neck: FINDINGS: AORTIC ARCH AND BRANCHES: No dissection. RIGHT CAROTID ARTERIES: No occlusion, significant stenosis or dissection. LEFT CAROTID ARTERIES: No occlusion, significant stenosis or dissection. RIGHT VERTEBRAL ARTERY: No occlusion, significant stenosis or dissection. LEFT VERTEBRAL ARTERY: No occlusion, significant stenosis or dissection. NECK SOFT TISSUES: Unremarkable. LUNG APICES: Unremarkable. BONES: Unremarkable. IMPRESSION: Unremarkable CT angiogram of the neck. CTA head: FINDINGS: INTERNAL CAROTID ARTERIES: No significant stenosis of the intracranial segments. ANTERIOR CEREBRAL ARTERIES: No significant stenosis of the visualized segments. ANTERIOR COMMUNICATING ARTERY: Present. MIDDLE CEREBRAL ARTERIES: No significant stenosis of the visualized segments. VERTEBRAL ARTERIES: No significant stenosis of the intradural/visualized segments. BASILAR ARTERY: No significant stenosis. POSTERIOR CEREBRAL ARTERIES: No significant stenosis of the visualized segments. POSTERIOR COMMUNICATING ARTERIES: Visualized on the right. Not definitively seen on the left. No evidence of intracranial aneurysm or vascular malformation. 10/17/192235 Date cc: Susannah Clemente MD; Serg Pinto MD * Signed ADDENDUM by Triny Villanueva MD on 10/17/[address]/CTA Head AND Neck W/ Contrast IMPRESSION: No arterial occlusion, aneurysm or vascular malformation. Individualized dose optimization techniques were used for this CT. at 2236 Reported and signed by: Triny Villanueva MD N.B. : The above information has been verbally conveyed by Triny Villanueva MD to Carol Patel RN, RN, on 10/17/2019 22:38:58 (ET). Electronically Signed: Triny Villanueva MD at 22:36 EST Tel , Service support , 10/17/193 Date cc: Susannah Clemente MD; Serg Pinto MD * Signed We are attempting to reach an attending provider to discuss findings. An addendum with communication details will be sent when the communication is complete. HISTORY: STROKE TECHNIQUE: CT angiogram of the brain was performed with IV contrast. CT angiogram images of the neck were obtained with IV contrast. 3D reconstructions were reviewed to aid in vascular evaluation. NASCET criteria using the distal internal carotid arteries were used for evaluation of stenoses. A radiation dose optimization technique was used for this scan. IV Contrast dosage and agent: 100 ml [id number] Number of images including paperwork: [id number] COMPARISON: None CTA neck: FINDINGS: AORTIC ARCH AND BRANCHES: No dissection. RIGHT CAROTID ARTERIES: No occlusion, significant stenosis or dissection. LEFT CAROTID ARTERIES: No occlusion, significant stenosis or dissection. RIGHT VERTEBRAL ARTERY: No occlusion, significant stenosis or dissection. LEFT VERTEBRAL ARTERY: No occlusion, significant stenosis or dissection. NECK SOFT TISSUES: Unremarkable. LUNG APICES: Unremarkable. BONES: Unremarkable. IMPRESSION: Unremarkable CT angiogram of the neck. CTA head: FINDINGS: INTERNAL CAROTID ARTERIES: No significant stenosis of the intracranial segments. ANTERIOR CEREBRAL ARTERIES: No significant stenosis of the visualized segments. ANTERIOR COMMUNICATING ARTERY: Present. MIDDLE CEREBRAL ARTERIES: No significant stenosis of the visualized segments. VERTEBRAL ARTERIES: No significant stenosis of the intradural/visualized segments. BASILAR ARTERY: No significant stenosis. POSTERIOR CEREBRAL ARTERIES: No significant stenosis of the visualized segments. POSTERIOR COMMUNICATING ARTERIES: Visualized on the right. Not definitively seen on the left. No evidence of intracranial aneurysm or vascular malformation. CT/CTA Head AND Neck W/ Contrast IMPRESSION: No arterial occlusion, aneurysm or vascular malformation. Individualized dose optimization techniques were used for this CT. at 2236 Reported and signed by: Triny Villanueva MD Electronically Signed: Triny Villanueva MD at 22:36 EST Tel , Service support , CC: Susannah Clemente MD; Serg Pinto MD Patient Svcs Mgr: Signed Normal [facility] Discharge Instructionon Discharge Instruction [facility] Medical Records Department [address] [place] [address] Instructions for Home/Discharge Instructions 10/18/19 1245 MR#: [id number] Acct: [id number] Name: ZENAIDA EVANS Rep #: [id number] : 1935 84 From: Migel Sharma MD PCP: Susannah Clemente MD Status: ADM IN - Discharge Diagnoses Current Active Problems: Current Active and Chronic Problems Hypertensive emergency (Acute) You will use the following diet at home:: Regular Discharge Activity: Return to Normal Activity Allergies/Adverse Reactions: Allergies iron Allergy (Verified 10/15/19 22:32) Unknown pentazocine [From Talwin] Allergy (Verified 10/15/19 22:32) Other scopolamine Allergy (Verified 10/15/19 22:32) Other Medications to take at Discharge Aspirin [Aspirin, Baby] 81 mg PO DAILY@0800 01/18/18 Levothyroxine [Synthroid] 88 mcg PO DAILY 01/18/18 Acetaminophen [Tylenol] 1,000 mg PO Q8 tablet 01/21/18 Cholecalciferol (Vitamin D3) [Vitamin D3] 25 mcg PO DAILY 10/16/19 Gabapentin [Neurontin] 200 mg PO QHS 10/16/19 Hydrochlorothiazide [Hctz] 12.5 mg PO DAILY 10/16/19 Labetalol [Trandate (Beta Cecilia)] 100 mg PO BID 10/16/19 Melatonin 5 mg PO QHS 10/16/19 Valsartan [Diovan] 160 mg PO DAILY 10/16/19 Amlodipine [Norvasc] 5 mg PO DAILY tab 10/18/19 Budesonide [Budesonide EC] 1 cap PO TID #0 10/18/19 Primary Care Physician: Susannah Clemente MD [Primary Care Provider] - Test Results: Test results from this visit will be discussed in further detail at your follow-up appointment, if applicable. Proposed Discharge Date: 10/18/19 10/18/19 1255 Date Migel Sharma MD CC: Armani Killian D.O.; Susannah Clemente MD Signed Normal [facility] Basic Metabolic Profile (BMP )on 10-17-2019 Calcium [Mass/Vol] 8.0 mg/dL Low 8.5-10.1 [facility] Comment on above: Performed By: #### L 501.5200, L500.2500 #### [facility] [address] [place], [address] Chloride [Moles/Vol] 111 mmol/L High 98-107 [facility] Comment on above: Performed By: #### L 501.5200, L500.2500 #### [facility] [address] [place], [address] CO2 [Moles/Vol] 28.0 mmol/L Normal 21.0-32.0 [facility] Comment on above: Performed By: #### L 501.5200, L500.2500 #### [facility] [address] [place], [address] Creatinine [Mass/Vol] 0.94 mg/dL Normal 0.55-1.02 [facility] Comment on above: Result Comment: The validity of the calculated GFR AND GFRAA in patients over 70 years has not been determined. Clinical correlation is essential. Performed By: #### L 501.5200, L500.2500 #### [facility] [address] [place], [address] EST GFR - AA 73 mL/min Normal >60 [facility] Comment on above: Result Comment: Afri can Bulgarian GFR Calc Performed By: #### L 501.5200, L500.2500 #### [facility] [address] [place], [address] Estimated CRCL 42.45 ml/min Normal [facility] Comment on above: Performed By: #### L 501.5200, L500.2500 #### [facility] [address] [place], [address] GAP 3 Low 5-15 [facility] Comment on above: Performed By: #### L 501.5200, L500.2500 #### [facility] [address] [place], [address] GFR/1.73 sq M predicted among non-blacks MDRD (S/P/Bld) [Vol rate/Area] 60 mL/min/{1.73_m2} Normal >60 [facility] Comment on above: Result Comment: Non- GFR Calc Performed By: #### L 501.5200, L500.2500 #### [facility] [address] [place], [address] Glucose [Mass/Vol] 101 mg/dL Normal 74-106 [facility] Comment on above: Result Comment: Fast ing Glucose result from 100 to 125 mg/dL suggests IMPAIRED HOMEOSTASIS per A.D.A. criteria. Please note revised GLUCOSE reference range effective 2017. Performed By: #### L 501.5200, L500.2500 #### [facility] [address] [place], [address] Potassium [Moles/Vol] 4.2 mmol/L Normal 3.5-5.1 [facility] Comment on above: Performed By: #### L 501.5200, L500.2500 #### [facility] [address] [place], [address] Sodium [Moles/Vol] 142 mmol/L Normal 136-145 [facility] Comment on above: Performed By: #### L 501.5200, L500.2500 #### [facility] [address] [place], [address] Urea nitrogen [Mass/Vol] 20.1 RATIO High 10-20 [facility] Comment on above: Performed By: #### L 501.5200, L500.2500 #### [facility] [address] [place], [address] Urea nitrogen [Mass/Vol] 19 mg/dL High 7-18 [facility] Comment on above: Performed By: #### L 501.5200, L500.2500 #### [facility] [address] [place], [address] Bedside Glucoseon 10-17-2019 BEDSIDE GLU 121 mg/dL High 70-110 [facility] Comment on above: Result Comment: CORNELIA GRANDE OF PATIENT CARE PER NURSING PROTOCOL Performed By: #### L 501.080 #### [facility] Point of Care [address] [place] [address] Brain/Head without Contrasto n 10-17-2019 Brain/Head without Contrast [facility] Imaging Services [address] [place] [address] Brain/Head without Contrast MR#: [id number] Acct: [id number] Name: ZENAIDA EVANS Rep #: [id number] : 1935 F 84 From: Hossein Castro MD PCP: Susannah Clemente MD Status: ADM IN Study: Brain/Head without Contrast Date of Exam: 10/17/19 Exam# [id number] Ordering Dr: Migel Sharma MD STUDY: CT BRAIN WITHOUT CONTRAST REASON FOR EXAM: Female, 84 years old. Altered mental status, sudden trouble with coordination, headache, nausea. Speech difficulty yesterday and ataxia. Hx breast cancer. RADIATION DOSAGE (If Supplied By Facility): CTDIvol = ( 44.99 ) mGy, DLP = ( 745.49 ) mGycm TECHNIQUE: Transaxial CT imaging of the brain was performed without administration of intravenous contrast material. Individualized dose optimization techniques were used for this CT. COMPARISON: Prior study of 10/15/2019 FINDINGS: Normal soft tissue structures. Normal calvarium. Normal size ventricles and extra-axial spaces for the patient''s age. There are areas of decreased attenuation within the white matter tracts of the supratentorial brain, consistent with microvascular disease changes. There is an old tiny lacunar infarct of the right basal ganglia. Normal brainstem. Normal cerebellum. There is no intracranial hemorrhage. There are no findings of an acute ischemic infarction. Normal visualized paranasal sinuses. CT/Brain/Head without Contrast IMPRESSION: Chronic involutional changes of the brain. 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 There is no intracranial hemorrhage or evidence of acute infarct. Electronically Signed: Hossein Castro MD at 17:10 EST , Service support , CC: Migel Sharma MD; Susannah Clemente MD Patient Svcs Mgr: Signed Normal [facility] CBC W/Diff, Automatedon 12-3 Absolute Neut 3.4 X10 3/uL Normal 2.0-7.7 [facility] Comment on above: Performed By: #### L 100.0100 ####[facility] [address] [place], [address] Basophils/100 WBC (Bld) 0.6 % Normal 0-1 [facility] Comment on above: Performed By: #### L 100.0100 ####[facility] [address] [place], [address] Eosinophils/100 WBC (Bld) 3.0 % Normal 0-5 [facility] Comment on above: Performed By: #### L 100.0100 ####[facility] [address] [place], [address] Erythrocyte distribution width (RBC) [Ratio] 13.8 % Normal 11.6-14.6 [facility] Comment on above: Performed By: #### L 100.0100 ####[facility] [address] [place], [address] Hematocrit (Bld) [Volume fraction] 31.4 % Low 37-47 [facility] Comment on above: Performed By: #### L 100.0100 ####[facility] [address] [place], [address] Hemoglobin (Bld) [Mass/Vol] 10.2 g/dL Low 12.0-15.0 [facility] Comment on above: Performed By: #### L 100.0100 ####[facility] [address] [place], [address] IM GRAN % 0.200 % Normal 0.0-0.9 [facility] Comment on above: Result Comment: IG% - Immature Granulocytes (promyelocytes, myelocytes and metamyelocytes) > 1% indicates that a LEFT SHIFT is Present. Performed By: #### L 100.0100 ####[facility] [address] [place], [address] Lymphocytes (Bld) [#/Vol] 1.25 X10 3/uL Normal 0.83-4.51 [facility] Comment on above: Performed By: #### L 100.0100 ####[facility] [address] [place], [address] Lymphocytes/100 WBC (Bld) 23.8 % Normal 19-41 [facility] Comment on above: Performed By: #### L 100.0100 ####[facility] [address] [place], [address] MCH (RBC) [Entitic mass] 33.0 pg High 27.0-32.0 [facility] Comment on above: Performed By: #### L 100.0100 ####[facility] [address] [place], [address] MCHC (RBC) [Mass/Vol] 32.5 g/dL Normal 32-36 [facility] Comment on above: Performed By: #### L 100.0100 ####[facility] [address] [place], [address] MCV (RBC) [Entitic vol] 101.6 fL High 81-99 [facility] Comment on above: Performed By: #### L 100.0100 ####[facility] [address] [place], [address] Monocytes/100 WBC (Bld) 8.4 % Normal 0-10 [facility] Comment on above: Performed By: #### L 100.0100 ####[facility] [address] [place], [address] Neutrophils/100 WBC (Bld) 64.0 % Normal 47-70 [facility] Comment on above: Performed By: #### L 100.0100 ####[facility] [address] [place], [address] NRBC, FLAGGED 0 % Normal 0-5 [facility] Comment on above: Performed By: #### L 100.0100 ####[facility] [address] [place], [address] Platelet mean volume (Bld) [Entitic vol] 9.8 fL Normal 6.2-12.0 [facility] Comment on above: Performed By: #### L 100.0100 ####[facility] [address] [place], [address] Platelets (Bld) [#/Vol] 173 10*3/uL Normal 150-450 [facility] Comment on above: Performed By: #### L 100.0100 ####[facility] [address] [place], [address] RBC (Bld) [#/Vol] 3.09 M/mm3 Low 4.2-5.4 [facility] Comment on above: Performed By: #### L 100.0100 ####[facility] [address] [place], [address] RDW SD 51.3 fl High 35.1-43.9 [facility] Comment on above: Performed By: #### L 100.0100 ####[facility] [address] [facility] [place], [address] WBC (Bld) [#/Vol] 5.3 10*3/uL Normal 4.4-11.0 [facility] Comment on above: Performed By: #### L 100.0100 ####[facility] [address] [place], [address] Consultationon 10-17-2019 Consultation [facility] Medical Records Department [address] [place] [address] Consultation 10/16/19 0640 MR#: [id number] Acct: [id number] Name: ZENAIDA EVANS Rep #: [id number] : 1935 84 From: Armani Killian DO PCP: Susannah Clemente MD Status: ADM IN Y Location: ICU ICU02-1 Reason for Consult Date of Consultation: 10/16/19 Reason for Consultation: Hypertensive Emergency History of Present Illness: The patient is an 84-year-old female, with a history as outlined below, who presented to the emergency department on October 15 with complaints of a headache and gait instability. The patient reports that over the last 2 weeks she has been intermittently experiencing what sounds to be like episodes of ataxia. The patient does have a known history of hypertension, which has been managed chronically by her primary care provider located in [place]. She is currently on multiple antihypertensive medications in her home environment and denies having missed any recent doses. She has not had any recent medication or dosage changes. She reports that her blood pressure is normally controlled at her baseline. She is a lifelong non-smoker. On presentation to the emergency department, the patient was noted to be hypertensive with a blood pressure of 206/110 mmHg. She was, nevertheless, maintaining appropriate oxygen saturations on room air. Initial laboratory evaluation revealed no evidence of a leukocytosis. Coagulation profile was within normal limits. Creatinine was elevated to 1.46. Troponin was negative. CT head revealed no acute intracranial abnormality. Plain film chest x-ray revealed no acute cardiopulmonary process. The patient only had a documented NH score of 1 in the emergency department and was not a candidate for TPA. The patient was subsequently placed on a Cardene infusion and admitted to the medical intensive care unit for further management. Overnight, the patient's aphasia and lower extremity drift resolved. Her Cardene was able to be discontinued at 0600 hrs. this morning. Past Medical History Past Medical History (Chronic Problems): Chronic Problems HTN (hypertension) (Chronic) Hypothyroidism (Chronic) History of breast cancer (Chronic) R Breast CA s/p lumpectomy and radiation. Hyperlipidemia (Chronic) Microscopic colitis (Chronic) Vitamin D deficiency (Chronic) Allergic rhinitis (Chronic) Pain in right hip (Chronic) Allergies iron Allergy (Verified 10/15/19 22:32) Unknown pentazocine [From Talwin] Allergy (Verified 10/15/19 22:32) Other scopolamine Allergy (Verified 10/15/19 22:32) Other Home Medications: Ambulatory Orders Medication Instructions Recorded Surgical History: appendectomy, hysterectomy, - - Right breast lumpectomy, vein stripping of the leg Psychiatric History: No pertinent psych hx ARCHEOLOGIST History: No pertinent ARCHEOLOGIST history Lives: Spouse/ Significant Other Smoking Status: Former smoker Tobacco Use: Non-smoker Alcohol: None Drugs: None - *Family History Maternal History Items: Heart Disease, Hypertension Paternal History Items: Heart Disease, Hypertension Review of Systems Constitutional: Denies: Chills, Fever Eyes: Denies: Blurred vision, Double vision HEENT: Denies: Head Aches, Sinus Congestion, Sinus Drainage Cardiovascular: Denies: Chest Pain, Palpitations Respiratory: Denies: Cough, Shortness of breath at rest, Sputum production Gastrointestinal: Denies: Abdominal Pain, Nausea, Vomiting Genitourinary: Denies: Dysuria Musculoskeletal: Denies: Joint Pain, Joint Tenderness Skin: Denies: Rash, Wounds Neurological: Reports: Balance problems, Focal weakness, Incoordination Psychiatric: Denies: Anxiety, Depression, Homicidal Ideations, Suicidal Ideations Hematologic/ Lymphatic: Denies: Easy Bruising, Easy Bleeding Patient Problems: Active and Suspected Problems Stroke (Suspected) Hypertensive emergency (Acute) Objective: The patient's most recent lab work, culture data and imaging studies have all been personally reviewed. - Physical Exam Vitals/I AND O's: Vital Signs Temp Pulse Resp BP Pulse Ox 98 F 72 11 L 137/70 H 92 10/16/19 04:00 10/16/19 06:30 10/16/19 06:30 10/16/19 06:30 10/16/19 06:30 Oxygen Flow Rate (L/min) 2 Oxygen Delivery Method Room Air Weight: 158 lb 4.67 oz Body Mass Index (BMI) 25.5 Finger Stick Blood Glucose 104 Intake and Output for Last 24 Hours Intake Total 271.66 / 271.66 Output Total 300 / 300 Balance -28.34 / -28.34 General: Alert, Oriented x3, Cooperative, No apparent distress HEENT: Atraumatic, PERRLA, Normocephalic Oral: No Gingival or Mucosal Lesions/ Ulcerations Neck: Supple, No Nodes, Trachea Midline Lungs: Normal air movement, No rhonchi, No wheeze, No rales Cardiovascular: Regular rate, Regular Rhythm, Normal S1, Normal S2, No murmurs Abdomen: Bowel Sounds Present, Soft, Non Tender Extremities: No clubbing, No cyanosis, Edema Skin: No breakdown Musculoskeletal: No Tenderness to Palpation of Joints or Extremities Lymphatic: No Cervical, Supraclavicular, or Inguinal Adenopathy Neurological: Neuro grossly intact Psych/Mental Status: Normal Affect, Appropriate Labs (Last 48 Hours) WBC 6.5 RBC 3.64 L Hgb 12.3 Hct 36.5 L MCV 100.3 H MCH 33.8 H MCHC 33.7 WBC 5.4 RBC 3.20 L Hgb 10.5 L Hct 32.0 L MCV 100.0 H Clinical Impression(s) from Imaging Studies Brain CT 10/15/19 22:12 IMPRESSION: No acute intracranial abnormality. Chronic changes as above. ASPECT 10. Individualized dose optimization techniques were used for this CT. at 2227 Reported and signed by: Josue Galarza MD Electronically Signed: Josue Galarza MD at 22:25 EST Tel , Service support , ADDENDUM: 10/16/19 0000 IMPRESSION: No acute intracranial abnormality. Chronic changes as above. ASPECT 10. Individualized dose optimization techniques were used for this CT. at 2227 Reported and signed by: Josue Galarza MD N.B. : The above information has been verbally conveyed by Josue Galarza MD to Dr. Marsahll Corrales MD, on 10/15/2019 23:53:31 (ET). Electronically Signed: Josue Galarza MD at 22:25 EST Tel , Service support , Chest X-Ray 10/15/19 22:46 IMPRESSION: Chronic interestitial changes. No radiographic evidence of acute cardiopulmonary disease. at 0009 Reported and signed by: Josue Galarza MD Electronically Signed: Josue Galarza MD at 0:08 EST Tel , Service support , Current Medications Acetaminophen (Tylenol) 650 mg PO Q6H PRN PRN PRN Reason: Pain Score 1-5/Temp > 100.7 F Aspirin (Aspirin, Baby) 81 mg PO DAILY@0800 DINORAH Atorvastatin Calcium (Lipitor) 80 mg PO QHS DINORAH Budesonide (Budesonide Ec) 9 mg PO DAILY DINORAH Gabapentin (Neurontin) 200 mg PO QHS DINORAH Heparin Sodium (Porcine) (Heparin Na) 5,000 unit SC Q12 DINORAH Hydrochlorothiazide () 12.5 mg PO DAILY DINORAH Nicardipine HCl 25 mg/ Sodium (Chloride) 250 mls @ 50 mls/hr CONT INF .Q5H DINORAH; Protocol Last Titration: 10/16/19 06:30 Dose: 0 mg/hr, 0 mls/hr Documented by: Sodium Chloride () 1,000 mls @ 75 mls/hr IV .[id number] DINORAH Last Admin: 10/16/19 02:13 Dose: 75 mls/hr Documented by: Sodium Chloride () 250 mls @ 15 mls/hr IV .[id number] PRN PRN Reason: Saline Flush Sodium Chloride () 250 mls @ 15 mls/hr IV .[id number] PRN PRN Reason: Additional IVPB Infusion Sodium Chloride () 250 mls @ 15 mls/hr IV .[id number] PRN PRN Reason: Saline Flush Sodium Chloride () 250 mls @ 15 mls/hr IV .[id number] PRN PRN Reason: Additional IVPB Infusion Labetalol HCl (Trandate) 100 mg PO BID [facility] Levothyroxine Sodium (Synthroid) 88 mcg PO DAILY@0600 [facility] Losartan Potassium (Cozaar) 50 mg PO DAILY [facility] Morphine Sulfate () 1 - 2 mg IV Q3H PRN PRN PRN Reason: Pain Score 6-10/10 Last Admin: 10/16/19 02:13 Dose: 2 mg Documented by: Ondansetron HCl (Zofran) 4 mg IV Q8H PRN PRN PRN Reason: NAUSEA/VOMITING Sodium Chloride () 10 - 40 ml IV UD PRN PRN Reason: SALINE FLUSH Zolpidem Tartrate (Ambien (Generic)) 5 mg PO QHS PRN PRN PRN Reason: INSOMNIA Assessment/Plan Active and Suspected Problems Stroke (Suspected) Hypertensive emergency (Acute) RECOMMENDATIONS: 1. Restart home antihypertensive regimen. 2. Renal artery duplex study. 3. MRI brain today. Consider reconsultation to neurology following completion of head imaging. 4. Echocardiogram pending. 5. Physical therapy evaluation. IMPRESSIONS: 1. Hypertensive emergency The patient's hemodynamics have improved with the use of Cardene. This has since been discontinued. Plan to resume home antihypertensive regimen. A secondary work-up for the patient's hypertension will also be undertaken with renal duplex study. 2. Suspected stroke The patient initially presented with ataxia and aphasia. However, initial CT was unremarkable. There are plans to complete an MRI today. Recommend follow-up telemetry stroke consultation once head imaging has been completed. 3. Chronic kidney disease/hypothyroidism/histo ry of breast cancer Complicates care, management, recovery and prognosis. Physical therapy evaluation today. Okay to advance diet from my perspective. This note was generated with [employer] software. It may contain incorrect words, spelling, and punctuation that were not noted in checking the note before signing. Code Visit Inpatient E AND M: [id number] Init Hosp L3 10/17/19 0736 Date Armani Killian DO Cosigner Signature (if applicable): Date CC: Armani Killian D.O.; Susannah Clemente MD Signed Normal [facility] Magnesiumon 10-17-2019 Magnesium [Mass/Vol] 1.6 mg/dL Normal 1.6-2.6 [facility] Comment on above: Performed By: #### L 501.5200, L500.2500 #### [facility] [address] [place], [address] Basic Metabolic Profile (BMP )on 10-16-2019 Calcium [Mass/Vol] 8.0 mg/dL Low 8.5-10.1 [facility] Comment on above: Performed By: #### L 500.2500, L500.4100 ####[facility] [address] [place], [address] Chloride [Moles/Vol] 111 mmol/L High 98-107 [facility] Comment on above: Performed By: #### L 500.2500, L500.4100 ####[facility] [address] [place], [address] CO2 [Moles/Vol] 29.0 mmol/L Normal 21.0-32.0 [facility] Comment on above: Performed By: #### L 500.2500, L500.4100 ####[facility] [address] [place], [address] Creatinine [Mass/Vol] 1.18 mg/dL High 0.55-1.02 [facility] Comment on above: Result Comment: The validity of the calculated GFR AND GFRAA in patients over 70 years has not been determined. Clinical correlation is essential. Performed By: #### L 500.2500, L500.4100 ####[facility] [address] [place], [address] EST GFR - AA 56 mL/min Low >60 [facility] Comment on above: Result Comment: Afri can Bulgarian GFR Calc Performed By: #### L 500.2500, L500.4100 ####[facility] [address] [place], [address] Estimated CRCL 33.82 ml/min Normal [facility] Comment on above: Performed By: #### L 500.2500, L500.4100 ####[facility] [address] [place], [address] GAP 3 Low 5-15 [facility] Comment on above: Performed By: #### L 500.2500, L500.4100 ####[facility] [address] [place], [address] GFR/1.73 sq M predicted among non-blacks MDRD (S/P/Bld) [Vol rate/Area] 47 mL/min/{1.73_m2} Low >60 [facility] Comment on above: Result Comment: Non- GFR Calc Performed By: #### L 500.2500, L500.4100 ####[facility] [address] [place], [address] Glucose [Mass/Vol] 113 mg/dL High 74-106 [facility] Comment on above: Result Comment: Fast ing Glucose result from 100 to 125 mg/dL suggests IMPAIRED HOMEOSTASIS per A.D.A. criteria. Please note revised GLUCOSE reference range effective 2017. Performed By: #### L 500.2500, L500.4100 ####[facility] [address] [place], [address] Potassium [Moles/Vol] 4.6 mmol/L Normal 3.5-5.1 [facility] Comment on above: Performed By: #### L 500.2500, L500.4100 ####[facility] [address] [place], [address] Sodium [Moles/Vol] 143 mmol/L Normal 136-145 [facility] Comment on above: Performed By: #### L 500.2500, L500.4100 ####[facility] [address] [place], [address] Urea nitrogen [Mass/Vol] 25 mg/dL High 7-18 [facility] Comment on above: Performed By: #### L 500.2500, L500.4100 ####[facility] [address] [place], [address] Urea nitrogen [Mass/Vol] 21.2 RATIO High 10-20 [facility] Comment on above: Performed By: #### L 500.2500, L500.4100 ####[facility] [address] [place], [address] Calcium [Mass/Vol] 9.0 mg/dL Normal 8.5-10.1 [facility] Comment on above: Result Comment: Slig ht Lipemia, Result may be falsely increased. Performed By: #### L 500.2500, L501.4010 #### [facility] [address] [place], [address] Chloride [Moles/Vol] 111 mmol/L High 98-107 [facility] Comment on above: Performed By: #### L 500.2500, L501.4010 #### [facility] [address] [place], [address] CO2 [Moles/Vol] 27.0 mmol/L Normal 21.0-32.0 [facility] Comment on above: Result Comment: Slig ht Lipemia, Result may be falsely increased. Performed By: #### L 500.2500, L501.4010 #### [facility] [address] [place], [address] Creatinine [Mass/Vol] 1.46 mg/dL High 0.55-1.02 [facility] Comment on above: Result Comment: Slig ht Lipemia, Result may be falsely increased. The validity of the calculated GFR AND GFRAA in patients over 70 years has not been determined. Clinical correlation is essential. Performed By: #### L 500.2500, L501.4010 #### [facility] [address] [place], [address] EST GFR - AA 44 mL/min Low >60 [facility] Comment on above: Result Comment: Afri can Bulgarian GFR Calc Performed By: #### L 500.2500, L501.4010 #### [facility] [address] [place], [address] Estimated CRCL 24.15 ml/min Normal [facility] Comment on above: Performed By: #### L 500.2500, L501.4010 #### [facility] [address] [place], [address] GAP 6 Normal 5-15 [facility] Comment on above: Performed By: #### L 500.2500, L501.4010 #### [facility] [address] [place], [address] GFR/1.73 sq M predicted among non-blacks MDRD (S/P/Bld) [Vol rate/Area] 36 mL/min/{1.73_m2} Low >60 [facility] Comment on above: Result Comment: Non- GFR Calc Performed By: #### L 500.2500, L501.4010 #### [facility] [address] [place], [address] Glucose [Mass/Vol] 106 mg/dL Normal 74-106 [facility] Comment on above: Result Comment: Slig ht Lipemia, Result may be falsely increased. Fasting Glucose result from 100 to 125 mg/dL suggests IMPAIRED HOMEOSTASIS per A.D.A. criteria. Please note revised GLUCOSE reference range effective 2017. Performed By: #### L 500.2500, L501.4010 #### [facility] [address] [place], [address] Potassium [Moles/Vol] 4.3 mmol/L Normal 3.5-5.1 [facility] Comment on above: Result Comment: Slig ht Lipemia, Result may be falsely increased. Performed By: #### L 500.2500, L501.4010 #### [facility] [address] [place], [address] Sodium [Moles/Vol] 144 mmol/L Normal 136-145 [facility] Comment on above: Performed By: #### L 500.2500, L501.4010 #### [facility] [address] [place], [address] Urea nitrogen [Mass/Vol] 25 mg/dL High 7-18 [facility] Comment on above: Result Comment: Slig ht Lipemia, Result may be falsely increased. Performed By: #### L 500.2500, L501.4010 #### [facility] [address] [place], [address] Urea nitrogen [Mass/Vol] 17.1 RATIO Normal 10-20 [facility] Comment on above: Performed By: #### L 500.2500, L501.4010 #### [facility] [address] [place], [address] Brain without Contraston Brain without Contrast [facility] [address] [place] [address] Brain without Contrast MR#: [id number] Acct: [id number] Name: ZENAIDA EVANS Rep #: [id number] : 1935 F 84 From: Julián North MD PCP: Susannah Clemente MD Status: ADM IN Study: Brain without Contrast Date of Exam: 10/16/19 Exam# [id number] Ordering Dr: Gabrielle Winkler MD STUDY: MRI BRAIN WITHOUT CONTRAST REASON FOR EXAM: Female, 84 years old. slurred speech, memory issues, difficulty walking TECHNIQUE: Standardized multiplanar fat and water weighted pulse sequences were obtained. COMPARISON: CT of 10/15/2019 FINDINGS: There is mild cerebral atrophy with widening of the extra-axial spaces and ventricular dilatation. There are a limited number of small white matter hyperintensities, distributed throughout the deep white matter tracts of the cerebral hemispheres, consistent with mild chronic white matter ischemic changes. There is no evidence for recent intracranial ischemia or other cause of cytotoxic edema on diffusion weighted imaging (DWI). Normal T2* images of the brain without demonstrated susceptibility artifact. There is no demonstrated hemosiderin stain. Normal bilateral basal ganglia. Normal thalami. There is no extra-axial fluid accumulation. Normal flow voids within the major intracranial circulation suggesting patency by spin echo criteria. Normal sella turcica, pituitary gland, infundibular stalk, optic chiasm and hypothalamus. Normal tectal plate and pineal gland. Normal midbrain, villa and medulla. Normal cerebellum. Normal basal cisterns. Normal bilateral temporal bones. Normal bilateral internal auditory canals. There are bilateral ocular lens implants with otherwise normal intraorbital contents. Normal visualized paranasal sinuses. Normal calvarium and skull base. Normal visualized soft tissue structures. Normal visualized upper cervical spine. MRI/Brain without Contrast IMPRESSION: Involutional changes of the brain, as described above. No acute infarct. Electronically Signed: Julián North MD at 13:14 EST Tel , Service support , CC: Susannah Clemente MD; Gabrielle Winkler Patient Svcs Mgr: Signed Normal [facility] Brain/Head without Contrasto n 10-16-2019 Brain/Head without Contrast [facility] [address] [place] [address] Brain/Head without Contrast MR#: [id number] Acct: [id number] Name: ZENAIDA EVANS Rep #: [id number] : 1935 F 84 From: Josue Galarza MD PCP: Christin Aly MD Status: REG ER Study: Brain/Head without Contrast Date of Exam: 10/15/19 Exam# [id number] Ordering Dr: Marshall Corrales MD ADDENDUM by Josue Galarza MD on 10/15/19 at 2225 HISTORY: STROKE, SLURRED SPEECH, WEAKNESS, FACIAL DROOP STARTED 30 MINS AGO Technique:CT Head or Brain W/O Contrast Injection Number of Images including paperwork:244 Comparison: None available. Findings: CT images of the head were obtained without contrast. Periventricular deep and subcortical white matter disease is present. Paranasal sinuses are clear. The brain is atrophic. Calcific ASCVD involves intracranial arteries. No acute intracranial edema or hemorrhage. No acute abnormality of orbits. Middle ear cavities and mastoid air cells are well aerated. Skull is normal. 10/15/192224 Date cc: Christin Aly MD; Marshall Corrales MD * Signed ADDENDUM by Josue Galarza MD on 10/15/[address]/Brain/Head without Contrast IMPRESSION: No acute intracranial abnormality. Chronic changes as above. ASPECT 10. Individualized dose optimization techniques were used for this CT. at 2227 Reported and signed by: Josue Galarza MD N.B. : The above information has been verbally conveyed by Josue Galarza MD to Dr. Marshall Corrales MD, on 10/15/2019 23:53:31 (ET). Electronically Signed: Josue Galarza MD at 22:25 EST Tel , Service support , 10/16/19 0000 Date cc: Christin Aly MD; Marshall Corrales MD * Signed We are attempting to reach an attending provider to discuss findings. An addendum with communication details will be sent when the communication is complete. HISTORY: STROKE, SLURRED SPEECH, WEAKNESS, FACIAL DROOP STARTED 30 MINS AGO Technique:CT Head or Brain W/O Contrast Injection Number of Images including paperwork:244 Comparison: None available. Findings: CT images of the head were obtained without contrast. Periventricular deep and subcortical white matter disease is present. Paranasal sinuses are clear. The brain is atrophic. Calcific ASCVD involves intracranial arteries. No acute intracranial edema or hemorrhage. No acute abnormality of orbits. Middle ear cavities and mastoid air cells are well aerated. Skull is normal. CT/Brain/Head without Contrast IMPRESSION: No acute intracranial abnormality. Chronic changes as above. ASPECT 10. Individualized dose optimization techniques were used for this CT. at 2227 Reported and signed by: Josue Galarza MD Electronically Signed: Josue Galarza MD at 22:25 EST Tel , Service support , CC: Christin Aly MD; Marshall Corrales MD Patient Svcs Mgr: Signed Normal [facility] CBC W/Diff, Automatedon 09-19 Absolute Neut 3.6 X10 3/uL Normal 2.0-7.7 [facility] Comment on above: Performed By: #### L 100.0100 #### [facility] [place], [address] Basophils/100 WBC (Bld) 0.4 % Normal 0-1 [facility] Comment on above: Performed By: #### L 100.0100 #### [facility] [address] [place], [address] Eosinophils/100 WBC (Bld) 2.0 % Normal 0-5 [facility] Comment on above: Performed By: #### L 100.0100 #### [facility] [address] [place], [address] Erythrocyte distribution width (RBC) [Ratio] 13.7 % Normal 11.6-14.6 [facility] Comment on above: Performed By: #### L 100.0100 #### [facility] [address] [place], [address] Hematocrit (Bld) [Volume fraction] 32.0 % Low 37-47 [facility] Comment on above: Performed By: #### L 100.0100 #### [facility] [address] [place], [address] Hemoglobin (Bld) [Mass/Vol] 10.5 g/dL Low 12.0-15.0 [facility] Comment on above: Performed By: #### L 100.0100 #### [facility] [address] [place], [address] IM GRAN % 0.200 % Normal 0.0-0.9 [facility] Comment on above: Result Comment: IG% - Immature Granulocytes (promyelocytes, myelocytes and metamyelocytes) > 1% indicates that a LEFT SHIFT is Present. Performed By: #### L 100.0100 #### [facility] [address] [place], [address] Lymphocytes (Bld) [#/Vol] 1.23 X10 3/uL Normal 0.83-4.51 [facility] Comment on above: Performed By: #### L 100.0100 #### [facility] [address] [place], [address] Lymphocytes/100 WBC (Bld) 22.8 % Normal 19-41 [facility] Comment on above: Performed By: #### L 100.0100 #### [facility] [address] [place], [address] MCH (RBC) [Entitic mass] 32.8 pg High 27.0-32.0 [facility] Comment on above: Performed By: #### L 100.0100 #### [facility] [address] [place], [address] MCHC (RBC) [Mass/Vol] 32.8 g/dL Normal 32-36 [facility] Comment on above: Performed By: #### L 100.0100 #### [facility] [address] [place], [address] MCV (RBC) [Entitic vol] 100.0 fL High 81-99 [facility] Comment on above: Performed By: #### L 100.0100 #### [facility] [address] [place], [address] Monocytes/100 WBC (Bld) 8.5 % Normal 0-10 [facility] Comment on above: Performed By: #### L 100.0100 #### [facility] [address] [place], [address] Neutrophils/100 WBC (Bld) 66.1 % Normal 47-70 [facility] Comment on above: Performed By: #### L 100.0100 #### [facility] [address] [place], [address] NRBC, FLAGGED 0 % Normal 0-5 [facility] Comment on above: Performed By: #### L 100.0100 #### [facility] [address] [place], [address] Platelet mean volume (Bld) [Entitic vol] 10.0 fL Normal 6.2-12.0 [facility] Comment on above: Performed By: #### L 100.0100 #### [facility] [address] [place], [address] Platelets (Bld) [#/Vol] 202 10*3/uL Normal 150-450 [facility] Comment on above: Performed By: #### L 100.0100 #### [facility] [address] [place], [address] RBC (Bld) [#/Vol] 3.20 M/mm3 Low 4.2-5.4 [facility] Comment on above: Performed By: #### L 100.0100 #### [facility] [address] [place], [address] RDW SD 50.0 fl High 35.1-43.9 [facility] Comment on above: Performed By: #### L 100.0100 #### [facility] [address] [place], [address] WBC (Bld) [#/Vol] 5.4 10*3/uL Normal 4.4-11.0 [facility] Comment on above: Performed By: #### L 100.0100 #### [facility] [address] [place], [address] Absolute Neut 4.1 X10 3/uL Normal 2.0-7.7 [facility] Comment on above: Performed By: #### L 100.0100 ####[facility] [address] [place], [address] Basophils/100 WBC (Bld) 0.3 % Normal 0-1 [facility] Comment on above: Performed By: #### L 100.0100 ####[facility] [address] [place], [address] Eosinophils/100 WBC (Bld) 2.6 % Normal 0-5 [facility] Comment on above: Performed By: #### L 100.0100 ####[facility] [address] [place], [address] Erythrocyte distribution width (RBC) [Ratio] 13.7 % Normal 11.6-14.6 [facility] Comment on above: Performed By: #### L 100.0100 ####[facility] [address] [place], [address] Hematocrit (Bld) [Volume fraction] 36.5 % Low 37-47 [facility] Comment on above: Performed By: #### L 100.0100 ####[facility] [address] [place], [address] Hemoglobin (Bld) [Mass/Vol] 12.3 g/dL Normal 12.0-15.0 [facility] Comment on above: Performed By: #### L 100.0100 ####[facility] [address] [place], [address] IM GRAN % 0.300 % Normal 0.0-0.9 [facility] Comment on above: Result Comment: IG% - Immature Granulocytes (promyelocytes, myelocytes and metamyelocytes) > 1% indicates that a LEFT SHIFT is Present. Performed By: #### L 100.0100 ####[facility] [address] [place], [address] Lymphocytes (Bld) [#/Vol] 1.61 X10 3/uL Normal 0.83-4.51 [facility] Comment on above: Performed By: #### L 100.0100 ####[facility] [address] [place], [address] Lymphocytes/100 WBC (Bld) 24.7 % Normal 19-41 [facility] Comment on above: Performed By: #### L 100.0100 ####[facility] [address] [place], [address] MCH (RBC) [Entitic mass] 33.8 pg High 27.0-32.0 [facility] Comment on above: Performed By: #### L 100.0100 ####[facility] [address] [place], [address] MCHC (RBC) [Mass/Vol] 33.7 g/dL Normal 32-36 [facility] Comment on above: Performed By: #### L 100.0100 ####[facility] [address] [place], [address] MCV (RBC) [Entitic vol] 100.3 fL High 81-99 [facility] Comment on above: Performed By: #### L 100.0100 ####[facility] [address] [place], [address] Monocytes/100 WBC (Bld) 8.4 % Normal 0-10 [facility] Comment on above: Performed By: #### L 100.0100 ####[facility] [address] [place], [address] Neutrophils/100 WBC (Bld) 63.7 % Normal 47-70 [facility] Comment on above: Performed By: #### L 100.0100 ####[facility] [address] [place], [address] NRBC, FLAGGED 0 % Normal 0-5 [facility] Comment on above: Performed By: #### L 100.0100 ####[facility] [address] [place], [address] Platelet mean volume (Bld) [Entitic vol] 10.1 fL Normal 6.2-12.0 [facility] Comment on above: Performed By: #### L 100.0100 ####[facility] [address] [place], [address] Platelets (Bld) [#/Vol] 221 10*3/uL Normal 150-450 [facility] Comment on above: Performed By: #### L 100.0100 ####[facility] [address] [place], [address] RBC (Bld) [#/Vol] 3.64 M/mm3 Low 4.2-5.4 [facility] Comment on above: Performed By: #### L 100.0100 ####[facility] [address] [place], [address] RDW SD 50.0 fl High 35.1-43.9 [facility] Comment on above: Performed By: #### L 100.0100 ####[facility] [address] [place], [address] WBC (Bld) [#/Vol] 6.5 10*3/uL Normal 4.4-11.0 [facility] Comment on above: Performed By: #### L 100.0100 ####[facility] [address] [place], [address] Carotid Duplex Ultrasoundon 10-16-2019 Carotid Duplex Ultrasound [facility] [address] [place] [address] Carotid Duplex Ultrasound 10/16/19 0848 MR#: [id number] Acct: [id number] Name: ZENAIDA EVANS Rep #: [id number] : 1935 84 From: Brandyn Rocha MD Attending Dr: Zachary SERRANOMigel Status: ADM IN Ordering Dr: Gabrielle Winkler MD Date: 10/16/19 Location: ICU Sex: F C Admitted: 10/16/19 Reason For Study: CVA Rt. Velocities/BP Lt. Velocities/BP Prox CCA 91.7/20.0 cm/sec. Prox CCA 104.3/19.5 cm/sec. Mid CCA 70.3/18.1 cm/sec. Mid CCA 82.2/17.1 cm/sec. Dist CCA 70.3/14.2 cm/sec. Dist CCA 80.9/15.8 cm/sec. Prox ICA 58.6/15.5 cm/sec. Prox ICA 56.4/15.8 cm/sec. Mid ICA 70.3/22.0 cm/sec. Mid ICA 77.3/20.8 cm/sec. Dist ICA 88.6/24.6 cm/sec. Dist ICA 106.4/29.0 cm/sec. Rt. ICA/CCA = 88.6/91.7=1.0. Lt. ICA/CCA = 106.4/104.3=1.0. Prox ECA 79.4/12.9 cm/sec. Prox ECA 101.8/10.9 cm/sec. Rt. Vert. 57.3/15.5 cm/sec. Lt. Vert. 57.2/15.5 cm/sec. Right Extracranial There is intimal thickening but no significant atherosclerotic plaque noted in the right common carotid artery. There is intimal thickening but no significant atherosclerotic plaque noted in the right internal carotid artery. There is no significant atherosclerotic plaque noted in the right external carotid artery. Antegrade flow is noted in the right vertebral artery. Left Extracranial There is intimal thickening but no significant atherosclerotic plaque noted in the left common carotid artery. There is heterogeneous, smooth atherosclerotic plaque noted in the left internal carotid artery. There is heterogeneous, irregular atherosclerotic plaque noted in the left external carotid artery. Antegrade flow is noted in the left vertebral artery. There is heterogeneous, irregular atherosclerotic plaque noted in the left bulb. Procedure Carotid Duplex 96663. Exam performed portable in ICU/CCU. Interpretation Summary No hemodynamically significant plaque or stenosis of bilateral extracranial internal carotid arteries with <50% stenosis bilaterally <50% stenosis bilateral external carotids Patent, antegrade, <50% stenosis bilateral vertebrals Ordering Physician: Gabrielle Winkler Referring Physician: Christin Aly Performed By: Sarah Gates, JOSE DANIEL, RVT 10/16/191701 Date Brandyn Rocha MD CC: Migel Sharma MD; Susannah Clemente MD; Gabrielle Winkler Date Dictated: 10/16/1947 Date Transcribed: 10/16/191701 Patient Svcs Mgr: Signed Normal [facility] Chest 1 Viewon 10-16-2019 Chest 1 View [facility] [address] [place] [address] Chest 1 View MR#: [id number] Acct: [id number] Name: ZENAIDA EVANS Rep #: [id number] : 1935 F 84 From: Josue Galarza MD PCP: Christin Aly MD Status: REG ER Study: Chest 1 View Date of Exam: 10/15/19 Exam# [id number] Ordering Dr: Marshall Corrales MD HISTORY: PT STATED HAVING SLURRED SPEECH AND WEAKNESSDENIES ANY PROBLEMS WITH CHEST/BREATHING EXAM: XR Chest 1 View COMPARISON: January 18, 2018 FINDINGS: LINES/DEVICES: Right chest wall right breast surgical clips are unchanged LUNGS: There are chronic interstitial changes. No pneumothorax. No consolidation or effusion. MEDIASTINUM AND CARDIOVASCULAR STRUCTURES: Cardiac silhouette not enlarged. Central airways and mediastinal contour are unremarkable. Athersclerotic plaque within the aortic arch. BONES AND SOFT TISSUES: Thoracic spondylosis. RAD/Chest 1 View IMPRESSION: Chronic interestitial changes. No radiographic evidence of acute cardiopulmonary disease. at 0009 Reported and signed by: Josue Galarza MD Electronically Signed: Josue Galarza MD at 0:08 EST Tel , Service support , CC: Christin Aly MD; Marshall Corrales MD Patient Svcs Mgr: Signed Normal [facility] Echocardiogram Completeon Echocardiogram Complete [facility] [place] [address] Echo Complete 10/16/19 0815 MR#: [id number] Acct: [id number] Name: ZENAIDA EVANS Rep #: [id number] : 1935 84 From: Vasile Reyes MD Attending Dr: Migel Sharma MD Status: ADM IN Ordering Dr: Gabrielle Winkler MD Date: 10/16/19 Location: ICU Sex: F C Admitted: 10/16/19 Reason For Study: TIA/CVA Procedure This was a 2D Doppler, Color Flow transthoracic echocardiogram. Exam performed portable in patient room. Left Ventricle Normal LV size. Left ventricular systolic function is normal. The estimated ejection fraction is 65 %. Stage 1 diastolic dysfunction. No regional wall motion abnormalities noted. Right Ventricle Normal RV size. Normal systolic function. Atria Normal left atrium. Normal right atrium. Bubble contrast study negative for right to left interatrial shunt. Mitral Valve Normal mitral valve. Tricuspid Valve Normal tricuspid valve. Mild (1+) tricuspid valve insufficiency. Pulmonary artery systolic pressure is 38 mmHg. Aortic Valve Normal aortic valve. Pulmonic Valve Normal pulmonic valve. Great Vessels Normal aortic root. The pulmonary artery is normal size. Normal inferior vena cava. Pericardium/Pleural No pericardial effusion. Medication Performed a rapid injection of agitated mix of 9 cc saline and 1cc air to assess for atrial septal defect. MMode/2D Measurements AND Calculations LVIDd: 3.6 cm IVSd: 1.1 cm Ao root diam: 3.0 cm LVIDs: 2.5 cm LVPWd: 1.2 cm LA dimension: 2.9 cm RVDd: 3.1 cm FS: 29.2 % LAV(MOD-bp): 33.4 ml LA A4 area: 14.4 cm2 RA A4 area: 14.6 cm2 LAV(MOD-bp) Indexed: 18.8 ml/m2 LAV(MOD-sp2): 29.0 ml LAV(MOD-sp4): 35.7 ml Doppler Measurements AND Calculations MV E max radha: 67.4 cm/sec Lat Peak E' Radha: 6.1 cm/sec Med Peak E' Radha: 5.9 cm/sec MV A max radha: 112.7 cm/sec E/E' lat: 11.1 E/E' med: 11.5 MV E/A: 0.60 Ao V2 max: 117.7 cm/sec LV V1 max: 91.4 cm/sec PA V2 max: 59.9 cm/sec Ao max P.5 mmHg LV V1 max P.3 mmHg Ao V2 mean: 83.1 cm/sec Ao mean P.0 mmHg Ao V2 VTI: 25.7 cm TR max radha: 289.1 cm/sec TR max P.4 mmHg Interpretation Summary Normal LV size. Left ventricular systolic function is normal. The estimated ejection fraction is 65 %. Stage 1 diastolic dysfunction. Bubble contrast study negative for right to left interatrial shunt. Mild (1+) tricuspid valve insufficiency. Ordering Physician: Gabrielle Winkler Referring Physician: Christin Aly Performed By: Alberto Garland RCS 10/16/19 1310 Date Vasile Reyes MD CC: Migel Sharma MD; Susannah Clemente MD; Gabrielle Winkler Date Dictated: 10/16/1915 Date Transcribed: 10/16/19 131 Patient Svcs Mgr: Signed Normal [facility] Emergency Department Summary on 10-16-2019 Emergency Department Summary [facility] Medical Records Department [address] [place] [address] Emergency Department Summary 10/15/19 2256 MR#: [id number] Acct: [id number] Name: ZENAIDA EVANS Rep #: [id number] : 1935 84 From: Marshall Corrales MD PCP: Christin Aly MD Status: ADM IN History of Present Illness Chief Complaint: Neuro S/Sx Informant: Patient, Significant Other, Funeral Home Assistant Narrative: Patient stated over the last week she has had intermittent difficulty with memory. This was since she started a medication for colitis. She stated that tonight she was in the shower and developed a headache. She got out of the shower and was having difficulty walking. Her helped her to the bed and called EMS. The patient was having difficulty word finding for EMS but otherwise had no focal neurologic deficits. Upon arrival the patient is only complaining of a headache. Is a frontal achy headache. She does have a history of headaches in the remote past. No home treatment for this. She stated that her vision is okay. She has no slurred speech. She has difficulty finding her words for some things. She has no focal weakness of her upper extremities. She has some weakness to her right lower extremity but it is mild. Her NIH stroke scale is 1. An acute stroke team was called. She went down to CAT scan. CT was negative. She was evaluated by the stroke neurologist as well as myself. At this time I spoke to the family about TPA. They would like to hold off on doing TPA after being informed about the risk and benefit. The patient will continue to have a stroke work-up. - Past Medical History (1) Cephalgia Status: Acute (2) Stress fracture of right hip Status: Acute (3) Trochanteric bursitis of right hip Status: Acute (4) Uncontrolled hypertension Status: Acute (5) Allergic rhinitis Status: Chronic (6) HTN (hypertension) Status: Chronic (7) History of breast cancer Status: Chronic Comment: R Breast CA s/p lumpectomy and radiation. (8) Hyperlipidemia Status: Chronic (9) Hypothyroidism Status: Chronic (10) Microscopic colitis Status: Chronic (11) Pain in right hip Status: Chronic (12) Vitamin D deficiency Status: Chronic (13) Neuropathy Status: Ruled-out Past Medical History - Allergies and Home Meds Allergies/Adverse Reactions: Allergies iron Allergy (Verified 10/15/19 22:32) Unknown pentazocine [From Talwin] Allergy (Verified 10/15/19 22:32) Other scopolamine Allergy (Verified 10/15/19 22:32) Other Primary Care Physician: Christin Aly MD [Primary Care Provider] - Prior records reviewed: Yes Past Medical History: - - Problem list Surgical History: appendectomy, hysterectomy, - - Right breast lumpectomy, vein stripping of the leg Smoking Status: Never smoker Alcohol: None Drugs: None - Family History Maternal Family History: Reports: Heart Disease, Hypertension Paternal Family History: Reports: Heart Disease, Hypertension Review of Systems General: Denies: Chills, Fever, Sweats Eyes: Denies: Visual changes - bilaterally, Diplopia ENT: Denies: Rhinorrhea, Sore throat Cardiovascular: Denies: Chest pain, Palpitations Respiratory: Denies: Dyspnea, Cough, Dyspnea on exertion Gastrointestinal: Denies: Abdominal pain, Nausea, Vomiting, Diarrhea, Melena, Hematochezia Genitourinary: Denies: Dysuria, Hematuria, Frequency Musculoskeletal: Denies: Back pain, Extremity Pain Skin: Denies: Rash, Wounds Neurological: Reports: Headache, Weakness. Denies: Numbness Physical Exam Vital Signs/Narrative: Vital Signs 10/15/19 22:27 99.2 F H 89 18 206/110 H 95 10/15/19 22:24 99.2 F H 89 18 206/110 H 95 Inital Vital Signs reviewed: Yes - Hypertension noted General: Well nourished, Well developed, No Acute Distress Head: Normocephalic, Atraumatic Eyes: Perrl, EOMI ENT: Moist mucous membranes, No rhinorrhea Neck: Supple, Nontender Cardiovascular: Regular rate, Regular rhythm, No murmurs Respiratory: No distress, CTA bilaterally, Chest nontender Abdomen: Soft, Nontender, Nondistended, Normal bowel sounds Back: Nontender, Normal Inspection Extremities: Nontender, No edema Skin: Normal color, No rash Neurological: Alert, Oriented x3, Cranial nerves II-XII grossly intact, Normal Strength, Normal Sensation, - - Patient initially had more strength in her right lower extremity but then developed some weakness which gave her a NIH of 1. The rest of her NIH stroke scale was negative. Later in her stay 5 minutes later she had normal strength in her right lower extremity on NIH stroke scale exam. Psychological: Normal affect, Normal Mood Diagnostic/Tx/Re-eval - Medical Decision Making Stroke work-up obtained. Patient also given a dose of Toradol for her headache. She was also given labetalol for her significant hypertension. EKG shows sinus rhythm at a rate of 84 with no ischemia. Blood pressures come down to 186/82. She still has headache after Toradol. CT head negative. Lab work shows no acute abnormalities. Suspect the patient has had a stroke causing her symptoms. Not a candidate for TPA. Will be admitted for further evaluation and treatment. ED Disposition - Plan for ED Patient: Disposition: [facility] Care [facility] Diagnosis: Stroke, Hypertensive emergency What to do if you have Problems For any increased pain, shortness of breath, bleeding, nausea or vomiting, chest pain, or any unexpected problems, contact your Primary Care Provider. Call [facility] ([phone]) or report to the closest Emergency Room. Call 911 if necessary. 10/16/19 0644 Date Marshall Corrales MD Cosigner Signature (If Indicated): Date CC: Christin Aly MD Normal [facility] History and Physical Examon 10-16-2019 History and Physical Exam [facility] Medical Records Department [address] [place] [address] History and Physical 10/16/19 0056 MR#: [id number] Acct: [id number] Name: ZENAIDA EVANS Rep #: [id number] : 1935 84 From: Gabrielle Winkler MD PCP: Christin Aly MD Status: ADM IN Y Location: ICU ICU02-1 Problem List (1) Stroke Status: Suspected (2) Hypertensive emergency Status: Acute (3) HTN (hypertension) Status: Chronic Qualifiers: (4) Hypothyroidism Status: Chronic Qualifiers: (5) History of breast cancer Status: Chronic Comment: R Breast CA s/p lumpectomy and radiation. (6) Hyperlipidemia Status: Chronic (7) Microscopic colitis Status: Chronic (8) Vitamin D deficiency Status: Chronic History of Present Illness Date of Admission: 10/16/19 Chief Complaint: Headache, slurred speech, difficulty walking. The patient is a 84 year old F patient with past medical history as mentioned above presented to the emergency room because of difficulty walking and slurred speech. Patient mentioned that her symptoms started when she was in the shower, started having headache, throbbing headache, generalized and she got out of the shower and having difficulty walking. She mentioned that both of her legs were weak and she walked with very short steps. Patient stated that she tried to take her medications but she could not pick them up. She called her who was downstairs and mentioned that patient was having trouble speaking with difficulty finding words. The mentioned that the patient has been having issues remembering things over the last week which is very unusual to her. Reportedly, patient had minimal right lower extremity weakness upon arrival to ER. Her NIH stroke scale in the ED was 1. Acute stroke alert called and patient went for stat CT scan brain that showed no acute infarct or hemorrhage. Tele-neurology consulted, patient was evaluated and after discussion with the family, they decided to not give TPA after being informed about complications and side effects. Initially, blood pressure was highly elevated, it was up to 221 systolic and 110 diastolic. Her other vital signs were stable. Routine blood work was remarkable for BUN of 25 and creatinine of 1.46. EKG revealed normal sinus rhythm without evidence of acute segment changes or cardiac arrhythmias. Troponin is negative. Chest x-ray showed no acute findings. CT scan brain showed no acute infarct or hemorrhage. She is being admitted for hypertensive emergency and probable stroke. Past Medical History Past Medical History (Chronic Problems): Chronic Problems HTN (hypertension) (Chronic) Hypothyroidism (Chronic) History of breast cancer (Chronic) R Breast CA s/p lumpectomy and radiation. Hyperlipidemia (Chronic) Microscopic colitis (Chronic) Vitamin D deficiency (Chronic) Allergic rhinitis (Chronic) Pain in right hip (Chronic) Allergies iron Allergy (Verified 10/15/19 22:32) Unknown pentazocine [From Talwin] Allergy (Verified 10/15/19 22:32) Other scopolamine Allergy (Verified 10/15/19 22:32) Other Home Medications: Ambulatory Orders Medication Instructions Recorded Surgical History: appendectomy, hysterectomy, - - Right breast lumpectomy, vein stripping of the leg Psychiatric History: No pertinent psych hx ARCHEOLOGIST History: No pertinent ARCHEOLOGIST history Lives: Spouse/ Significant Other Smoking Status: Never smoker Alcohol: None Drugs: None - *Family History Maternal History Items: Heart Disease, Hypertension Paternal History Items: Heart Disease, Hypertension Review of Systems Constitutional: Reports: Weakness, Fatigue. Denies: Anorexia, Chills, Fever Eyes: Reports: Blurred vision. Denies: Double vision, Drainage, Redness HEENT: Reports: Head Aches. Denies: Difficulty Hearing, Ear Pain, Eye Pain, Nasal Congestion, Sore Throat Cardiovascular: Denies: Chest Pain, Chest Pressure, Chest Tightness, Palpitations, Syncope Respiratory: Denies: Cough, Hemoptysis, Pleuritic Pain, Shortness of Breath, Sputum production, Wheezing Gastrointestinal: Denies: Abdominal Pain, Constipation, Diarrhea, Nausea, Vomiting Genitourinary: Denies: Dysuria, Frequency, Hematuria Musculoskeletal: Denies: Arm Pain, Back Pain, Foot Pain Skin: Denies: Dryness, Rash Neurological: Reports: Change in Speech, Slurred speech, Confusion, Headaches, Incoordination. Denies: Balance problems, Focal weakness Psychiatric: Denies: Anxiety, Depression Endocrine: Denies: Change in Body Habitus, Polydipsia, Polyuria VTE Information - Inpt Only VTE Present on Admission: No VTE Mechan Device Prophylaxis: None VTE Pharm Prophylaxis ordered?: Yes Patient Problems: Active and Suspected Problems Stroke (Suspected) Hypertensive emergency (Acute) - Physical Exam Vitals/I AND O's: Vital Signs Temp Pulse Resp BP Pulse Ox 98.5 F 80 13 206/88 H 97 10/16/19 00:47 10/16/19 00:47 10/16/19 00:47 10/16/19 00:47 10/16/19 00:47 Oxygen Flow Rate (L/min) 2 Oxygen Delivery Method Nasal Cannula Weight: 164 lb 3.91 oz Body Mass Index (BMI) 29.0 Finger Stick Blood Glucose 104 General: Alert, Oriented x3, Cooperative, No apparent distress HEENT: Atraumatic, PERRLA, EOMI, Normocephalic Oral: Moist Mucosa, No Gingival or Mucosal Lesions/ Ulcerations Neck: Supple, No JVD, Negative Carotid Bruits, Trachea Midline, Thyroid Normal Size and Texture Lungs: Clear to auscultation, Normal air movement, No rhonchi, No wheeze, No rales Cardiovascular: Regular rate, Regular Rhythm, Normal S1, Normal S2, PMI Normal Abdomen: Bowel Sounds Present, Soft, Non Tender, Non-Distended, No Hepato-splenomegaly Extremities: No clubbing, No cyanosis, No edema Skin: No rashes, No breakdown Lymphatic: No Cervical, Supraclavicular, or Inguinal Adenopathy Neurological: Cranial nerves II-XII grossly intact, Motor Exam 5/5 strength throughout, Sensory exam intact to light touch and pain Psych/Mental Status: Normal Affect, Appropriate, Alert and oriented to time, place, person, mood and affect Laboratory Results 10/15/19 22:25: WBC 6.5, RBC 3.64 L, Hgb 12.3, Hct 36.5 L, MCV 100.3 H, MCH 33.8 H, MCHC 33.7, RDW Std Deviation 50.0 H, RDW Coeff of Gabriella 13.7, Plt Count 221, MPV 10.1, Immature Gran % (Auto) 0.300, Neut % (Auto) 63.7, Lymph % (Auto) 24.7, Island % (Auto) 8.4, Eos % (Auto) 2.6, Baso % (Auto) 0.3, Absolute Neuts (auto) 4.1, Absolute Lymphs (auto) 1.61, Nucleated RBC % 0 10/15/19 22:25: PT 12.2, INR 0.9, APTT 29.7 10/15/19 22:25: Sodium 144, Potassium 4.3, Chloride 111 H, Carbon Dioxide 27.0, Anion Gap 6, BUN 25 H, Creatinine 1.46 H, Estim Creat Clear Calc 24.15, Est GFR (MDRD) Af Amer 44 L, Est GFR (MDRD) Non-Af 36 L, BUN/Creatinine Ratio 17.1, Glucose 106, Calcium 9.0, Troponin I < 0.015 Clinical Impression(s) from Imaging Studies Brain CT 10/15/19 22:12 IMPRESSION: No acute intracranial abnormality. Chronic changes as above. ASPECT 10. Individualized dose optimization techniques were used for this CT. at 2228 Reported and signed by: Josue Galarza MD Electronically Signed: Josue Galarza MD at 22:25 EST Tel , Service support , ADDENDUM: 10/16/19 0000 IMPRESSION: No acute intracranial abnormality. Chronic changes as above. ASPECT 10. Individualized dose optimization techniques were used for this CT. at 2227 Reported and signed by: Josue Galarza MD N.B. : The above information has been verbally conveyed by Josue Galarza MD to Dr. Marshall Corrales MD, on 10/15/2019 23:53:31 (ET). Electronically Signed: Josue Galarza MD at 22:25 EST Tel , Service support , Chest X-Ray 10/15/19 22:46 IMPRESSION: Chronic interestitial changes. No radiographic evidence of acute cardiopulmonary disease. at 0009 Reported and signed by: Josue Galarza MD Electronically Signed: Josue Galarza MD at 0:08 EST Tel , Service support , Current Medications Nicardipine HCl 25 mg/ Sodium (Chloride) 250 mls @ 50 mls/hr CONT INF .Q5H DINORAH; Protocol Labetalol HCl (Trandate) 20 mg IV X1 PRN PRN Reason: BLOOD PRESSURE Last Admin: 10/16/19 00:09 Dose: 20 mg Documented by: Assessment/Plan All Active Problems Hypertensive emergency (Acute) This is an 84 years old female patient presented to the emergency room because of headache, trouble walking and slurred speech as well as 1 week history of memory issues, found to have highly elevated blood pressure with systolic of more than 220 and she is being admitted for hypertensive emergency with suspected stroke. #1 hypertensive emergency: Highest blood pressure on the ED was 221/93, systolic went up to 110. CT scan brain without acute stroke or hemorrhage. EKG without acute ischemic findings. Troponin is negative. Patient was given 1 dose of IV labetalol, blood pressure slightly improved but started to go up again up to 216 systolic. Patient was started on IV nicardipine drip. Plan: Admit to ICU, critical care monitoring, continue IV nicardipine drip, IV fluids for hydration, IV morphine PRN, IV antiemetics, critical care consult, continue HCTZ, p.o. labetalol and Diovan. #2 suspected acute stroke: Acute stroke alert called, NIH stroke scale was 1 upon arrival. Patient was evaluated by tele-neurology, patient's family declined TPA after discussion with neurology. CT scan brain showed no acute findings. Her symptoms improved and when I saw the patient, she had no focal deficit. Plan: NIH stroke scale, aspirin, Lipitor, MRI brain, 2D echocardiogram, bilateral total Doppler. #3 hypertension: Blood pressure is high elevated, patient is on IV nicardipine drip. Plan to continue HCTZ, p.o. labetalol and Diovan. #4 stage III continue disease: Baseline creatinine is been around 1.1 to 1.3 mg/dL. Admission creatinine is 1.46, close to baseline. #5 history of breast cancer status post lumpectomy and radiation: Stable, in remission. #6 hypothyroidism: Continue levothyroxine. #7 microscopic colitis: Stable, continue budesonide. #8 DVT prophylaxis: Subcu heparin. This note was generated with [employer] software. It may contain incorrect words, spelling, and punctuation that were not noted in checking the note before signing. Code Visit Inpatient E AND M: [id number] Init Hosp L3 10/16/19 0117 Date Gabrielle Winkler MD Cosigner Signature: Date (if applicable) CC: Gabrielle Winkler; Christin Aly MD Signed Normal [facility] Lipid Profileon 10-16-2019 Cholesterol [Mass/Vol] 202 mg/dL High 200 [facility] Comment on above: Result Comment: <200 mg/dL Desirable 200-240 mg/dL Borderline >240 mg/dL High Risk Performed By: #### L 500.2500, L500.4100 ####[facility] [address] [place], [place], [id number] Cholesterol in HDL [Mass/Vol] 84 mg/dL Normal [facility] Comment on above: Result Comment: The drugs N-Acetylcysteine and Metamizole may falsely depress this assay. Reference Range HDL <40 mg/dL Low HDL Cholesterol HDL >or= 60 mg/dL High HDL Cholesterol Performed By: #### L 500.2500, L500.4100 ####[facility] [address] [place], [address] Cholesterol in LDL [Mass/Vol] 102 mg/dL Normal 0-130 [facility] Comment on above: Performed By: #### L 500.2500, L500.4100 ####[facility] [address] [place], [address] Cholesterol in VLDL [Mass/Vol] 16 mg/dL Normal 5-40 [facility] Comment on above: Performed By: #### L 500.2500, L500.4100 ####[facility] [address] [place], [address] Triglyceride [Mass/Vol] 80 mg/dL Normal [facility] Comment on above: Result Comment: The drugs N-Acetylcysteine and Metamizole may falsely depress this assay. Serum Triglycerides Reference Interval Normal <150 mg/dL Borderline high 150 - 199 mg/dL High 200 - 499 mg/dL Very High > or = 500 mg/dL Performed By: #### L 500.2500, L500.4100 ####[facility] [address] [place], [address] Partial Thromboplast Timeon 10-16-2019 aPTT Coag (Bld) [Time] 29.7 s Normal 24.1-36.2 [facility] Comment on above: Performed By: #### L 300.4310, L300.3900 #### [facility] [address] [place], [address] Prothrombin Time w/INRon INR Coag (PPP) [Relative time] 0.9 {INR} Normal [facility] Comment on above: Performed By: #### L 300.4310, L300.3900 #### [facility] [address] [place], [address] PT Coag (PPP) [Time] 12.2 s Normal 11.7-14.9 [facility] Comment on above: Performed By: #### L 300.4310, L300.3900 #### [facility] [address] [place], [address] Renal Artery Duplexon 2018 Renal Artery Duplex [facility] [address] [place] [address] Renal Artery Duplex Ultrasound 10/16/19 1419 MR#: [id number] Acct: [id number] Name: ZENAIDA EVANS Rep #: [id number] : 1935 84 From: Brandyn Rocha MD Attending Dr: Migel Sharma MD Status: ADM IN Ordering Dr: Migel Sharma MD Date: 10/16/19 Location: ICU Sex: F C Admitted: 10/16/19 Reason For Study: Hypertension Right Renal Artery Left Renal Artery Right renal artery ostium 131.5/17.3 Left renal artery ostium 78.1/16.7 RSV/EDV. PSV/EDV. Right renal artery proximal 127.1/13 Left renal artery proximal PSV/EDV PSV/EDV. 75.7/13 . Right renal artery mid 171/21.7 Left renal artery mid 79.3/11.8 PSV/EDV. PSV/EDV . Right renal artery distal 157.8/17.9 Left renal artery distal 78.1/13 PSV/EDV. PSV/EDV. Right RAR 2.45. Left RAR 1.13. Right Renal Parenchyma Left Renal Parenchyma Upper Pole Medula 23.4/6.4 PSV/EDV. Left upper pole medulla 22.5/5.3 Right upper pole medulla EDR 0.27 . PSV/EDV . Right upper pole medulla R.I. 0.73 . Left upper pole medulla EDR 0.24 . Upper Dirk Cortx 19.9/5.1 PSV/EDV. Left upper pole medulla R.I. 0.77 . Right upper pole cortex EDR 0.26 . UP Cortex 16.3/5.3 PSV/EDV. Right upper pole cortex R.I. 0.75 . Left upper pole cortex EDR 0.33 . Right lower Pole medulla 23.8/5.1 Left upper pole cortex R.I. 0.68 . PSV/EDV . Left lower Pole medulla 23.1/5.9 Right lower pole medulla EDR 0.21 . PSV/EDV . Right lower pole medulla R.I. 0.79 . Left lower pole medulla EDR 0.26 . Lower Pole Cortex 16.8/5.5 PSV/EDV. Left lower pole medulla R.I. 0.74 . Right lower pole cortex EDR 0.33 . Lower Pole Cortx 16.9/4.7 PSV/EDV. Right lower pole cortex R.I. 0.67 . Left lower pole cortex EDR 0.28 . Right Renal Hilar Left lower pole cortex R.I. 0.72 . Right Hilar avg 39.1/6.5 PSV/EDV. Left Renal Hilar Right hilar acceleration time 40 LT Hilar avg 35.4/6.5 PSV/EDV . m/sec. Left hilar acceleration time 60 Right Renal Dimensions m/sec. Right kidney size 10.15 cm . Left Renal Dimensions Right cortical dimension 1.54 cm . Left kidney size 10.40 cm . Nonvascularized nodule noted on Left cortical dimension 1.38 cm . right kidney measuring approximently 4.56 x 5.15 cm. Aorta Proximal abdominal aorta 1.48 x 1.47 cm . Proximal abdominal aorta peak systolic velocity is 69.9 cm/sec . Distal abdominal aorta 1.10 x 1.10 cm . Distal abdominal aorta peak systolic velocity is 96.4 cm/sec . Patient Safety Left renal artery technically difficult to visualize. Interpretation Summary Normal proximal aortic diameter of 1.48 x 1.47 cm Maximal distal aortic flow velocity 96.4 cm/s <60% stenosis right renal artery <60% stenosis left renal artery Right renal length 10.15 cm Non-vascular likely cystic 4.56 x 5.15 cm right renal lesion. Left renal length 10.4 cm Ordering Physician: Migel Sharma Referring Physician: Christin Aly Performed By: Manjula Rothman, TAYLAT 10/16/191722 Date Brandyn Rocha MD CC: Migel Sharma MD; Susannah Clemente MD Date Dictated: 10/16/19 1419 Date Transcribed: 10/16/191722 Patient Svcs Mgr: Signed Normal [facility] Troponin-Ion 10-16-2019 Troponin I.cardiac [Mass/Vol] ng/mL Normal <0.045 [facility] Comment on above: Result Comment: Slig ht Lipemia, Result may be falsely increased. TROPONIN-I EXPECTED VALUES <0.045 Negative 0.045 - 0.590 Consistent with Cardiac Damage > OR = 0.600 Critical Value Not every elevated troponin is indicative of WI. These values should be used with clinical judgement in examining the patient's clinical picture for diagnosis. To establish a diagnosis of WI versus myocardial injury, there must be a demonstrated rise and/or fall in the troponin values, in addition to ischemic symptoms, EKG changes, new regional wall motion abnormality, and/or angiographical evidence. PLEASE NOTE: REFERENCE RANGES EDITED 18 Performed By: #### L 500.2500, L501.4010 #### [facility] [address] [place], [address] CNOVon 02-07-2018 CNOV Office Visit (AGCARDWST) -------ZENAIDA EVANS ([id number]) 1935 [place] [facility]02[facility]07/18 3:00 PM SCOTTY BERRY AGCARDWST During your visit today, we recorded the following information about you: Pulse Blood pressure Weight Height 66/minute 105/63 67 kg 1.702 Dong Berry MD 02/07/2018 5:05 PM SignedPERTINENT CARDIAC HISTORYChest pain - normal cath and stressPalpitations - SVTHTNHLADHERENCE TO GUIDELINESACE-I or ARB for HF with prior LVEFANDlt;40 (NQF 0081) - N/AASA or Plavix for ASHD (NQF 0067) - metBeta cecilia for ASHD with prior WI or prior LVEFANDlt;40 (NQF 0070) - N/ABeta cecilia for HF with prior LVEFANDlt;40 (NQF 0083) - N/AACE-I or ARB for ASHD with DM or prior LVEFANDlt;40 (NQF 0066) - N/AStatin therapy for ASHD or FHL or DM - declinesBMI documented and plan if ANDgt;25 (NQF 0421) - lifestyle recommendation formTobacco use screening and referral (NQF 0028) - lifestyle recommendation formRecommendation for whole food, plant based diet - lifestyle recommendation formCLINICAL IMPRESSION/PLAN:Zenaida Evans has labile blood pressure. She's probably overmedicated at thispoint. She appears to be a bit dry. We have never done a Renal Doppler on herand I have recommended that we do this to assess the possibility ofrenovascular hypertension, given that her blood pressure is labile.She will decrease HCTZ to 12.5 milligrams daily. I've also asked her todecrease labetalol to 100 milligrams twice daily. She may take an extra 100milligrams if her systolic blood pressure at the time of dosing is greater [id number]. Hopefully we can come to more equilibrium. She will continue Diovan at hercurrent dose.She was advised to increase magnesium in her diet.I've asked her to try Dramamine for episodes of nausea and vertigo to see ifthis helps. 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 I've encouragedher to follow this up with Dr. Clemente. [facility]I will see her as originally scheduled but will be in touch with her as we makeadjustments in her medication. She was advised to check vital signs twice dailyand send a list to me.Written and verbal health teaching given to patient, patient verbalizesunderstanding and agrees with treatment plan.DIAGNOSIS FOR VISIT:HypertensionChest painPalpitationsHISTORY OF PRESENT ILLNESSZenaida Evans returns for problem follow-up visit. She reports that her bloodpressure has been more labile recently. She's had multiple emergency departmentvisits and her medications have been manipulated . She notes that her pulserate has occasionally been over 100. Blood pressure will vary from less [id number] to over 150.She has been having problems with some bone pain and headaches. She's had onsetof nausea and some mild vertigo over the last few weeks. She has hadintermittent constipation and occasional vomiting. She reports that [facility]She's had rare , atypical chest discomfort. She denies orthopnea . She's hadminimal edema. She's had no syncope, but has had some lightheadedness whenstanding. She's had occasional palpitations. She denies TIAs, amaurosis,claudicationALLERG IES:ALLERGIESAllergen Reactions- Scopolamine Mental Status Change Hallucinations- Iron GI Upset CAN TAKE SLO-IRON- Talwin [Pentazocine* Mental Status Change HALLUCINATIONS- Verapamil Hcl GI Upset constipationCURRENT OUTPATIENT MEDICATIONS:acetaminophen (TYLENOL EXTRA STRENGTH) 500 mg tablet Take 1,000 mg by mouthevery 8 hours as needed.traMADol (ULTRAM) 50 mg tablet Take 50 mg by mouth every 6 hours as needed.valsartan (DIOVAN) 160 mg tablet Take 1 tablet by mouth twice daily.labetalol (TRANDATE) 200 mg tablet Take 1 tablet by mouth twice daily.sennosides (SENOKOT ORAL) Take 1 tablet by mouth once daily.promethazine HCl (PHENERGAN ORAL) Take 12.5 mg by mouth every 6 hours asneeded.SYNTHROID 88 mcg tablet Take 1 tablet by mouth once daily.ketoconazole (NIZORAL) 2 % shampoo Use to wash face and scalp two times a week.Lather and leave in for 3-5 minutes before rinsing.azelastine (ASTELIN,ASTEPRO) 0.1% nasal spray Use 2 Sprays in each nostriltwice daily.hydroCHLOROthiazide (HYDRODIURIL, ESIDRIX) 25 mg tablet Take 1 tablet by mouthonce daily.aspirin ([facility] ASPIRIN) 81 mg ORAL chewable tablet Take 81 mg bymouth once daily.HYDROcodone-acetaminop hen (NORCO) 5-325 mg per tablet EVERY 6 HOURS NEEDEDondansetron (ZOFRAN, HYDROCHLORIDE,) 4 mg tablet Take 1 tablet by mouthevery 8 hours as needed.naproxen (NAPROSYN) 500 mg tablet Two times daily for three days then two timesdaily as needed. Post-cibal.ipratropium bromide (ATROVENT) 0.06 % nasal spray Use 2 Sprays in the nose fourtimes daily as needed.gabapentin (NEURONTIN) 100 mg capsule TAKE 2 CAPSULES BY MOUTH AT NIGHT.BIOTIN/FOLIC ACID/VIT BCOMP,C (BIOTIN FORTE ORAL) Take by mouth once daily.multivitamin tablet Take 1 tablet by mouth once daily.COQ10, LIPOSOMAL UBIQUINOL, ORAL Take by mouth once daily.LACTOBACILLUS ACIDOPHILUS (PROBIOTIC ORAL) Take by mouth once daily.cholecalciferol(VITAMI N D 1,000 UNIT CAP) Take 2 po daily = 2,000MINOXIDIL 5 % TOP SOLN use once a dayPAST MEDICAL HISTORYDiagnosis Date- Breast cancer (HCC) 09/[address] Wood right ER positive s/p surgery/radiation and AI- Collagenous colitis 07/30/2017 On biopsy 2012.- Diarrhea hx of colitis- Diffuse cystic mastopathy- Dyspareunia- Essential hypertension- H/O complete eye exam 03/13/2011 no retinopathy detected -both eyes - [facility] - return in 1 year -Dr. Ruby- hair thinning sees Dr Choudhary- Hormone replacement therapy (HRT) 1974-present stopped by 09/2011- hx of low vitamin D treated 08/2007 20.4 recheck only 23 06/25 improved to 54- PMH - PAST MEDICAL HISTORY OF cardiac arrhythmia- resolved with change in medication- Symptomatic states associated with artificial menopause 1974 THBSO for fibroids age 40- Vaginal atrophy 08/2015 offered vag DHEA- Vaginismus for PTPAST SURGICAL HISTORYProcedure Laterality Date- APPENDECTOMY- BREAST BIOPSY CORE 04/16/2009 right breast stereo core biopsy- BX OF BREAST; NEEDLE CORE 04/02/2008 right breast stereo core biopsy- BX/REMV,LYMPH NODE,DEEP AXILL 10/30/11 Right NL PM/SLNs- COLONOSCOP W/ OR W/O BRSH SPEC 09/08/13 Colonoscopy- MASTECTOMY, PARTIAL Right 10/30/2011 Right NL PM/SLNs- PAST SURGICAL HISTORY OF bilat vein stripping- PAST SURGICAL HISTORY OF Left 1990 left breast Atypical hyperplasia- TOTAL ABDOM HYSTERECTOMY early 1969' Hysterectomy, CAROL, due to fibroids.FAMILY HISTORYProblem Relation Age of Onset- Alzheimer's Disease Mother hypertension/stroke d89- Heart Father d 72- emphseyma [OTHER] Sister d 59- Breast Cancer Maternal AuntSocial History Marital status: Spouse name: Kaushal Years of education: 18 Number of children: 3Social History Main Topics Smoking status: Former Smoker Packs/day: 1.00 Years: 12.00 Types: Cigarettes Quit date: 01/19/1967 Smokeless status: Never Used Alcohol use: Yes 10.5 oz/week 7 Glasses of Wine (5oz) per week Comment: occasional wine with dinner Drug use: No Sexual activity: Yes Partners with: Male Comment: surgicalOther Topics ConcernBlood Transfusions NoExercise Yes Comment:[facility] [place]Social History Narrative . 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 3 children. 5 grandchildren (no greats yet). Enjoys gardening, anything outside, working on manuscript for a book on[employer], [place]. Enjoys knitting, sewing and photgraphy.REVIEW OF SYSTEMS: General: No chills, fever, weight loss, night sweats.Respiratory: No productive cough. Cardiac: As noted above. GI: No melena.: No dysuria. Musculoskeletal: No myalgias.PHYSICAL EXAMINATION: S/he is alert and in no distress.VITAL SIGNS: BP 105/63 Pulse 66 Ht 5' 7ANDquot; (1.70m) Wt 147 lb 11.2 oz(67.0kg) BMI 23.13 kg/(m2). Initial blood pressure was 80/42SHEENT: Skin is warm and dry. No xanthelasmas appreciated. Pharynx isbenign. There is no oral cyanosis. Neck: supple. No adenopathy or thyroidenlargement. Chest: Clear to percussion and auscultation. Trachea is midline. Air entry is equal. There is no chest wall tenderness. Cardiac: Regularrhythm. S1 and S2 are normal. PMI is nondisplaced. There is a soft systolicejection murmur. No click is heard. Carotids are brisk without bruits. JVPis less than 10 cm. Abdomen: Soft and nontender. There are no pulsatilemasses or bruits. No liver enlargement. Bowel sounds are active.Extremities: No edema. Pulses are intact and symmetrical. No clubbing orcyanosis. No femoral bruits. Neurologic: Grossly normal motor and sensory.S/he is alert and oriented x4.Recent labs were reviewed. Renal function is normal although she appears alittle dry. Troponin was undetectable. Magnesium was borderline low. Lipase wasnormal.Head CT showed no evidence of bleed or mass effect. This is a noncontrast scanElectronically Signed:Gumaro Nieves 2017 4:03 PMCC:Héctor Vargas MD 02/07/2018 4:07 PM AddendumDecrease HCTZ to 12.5 mg dailyTake labetalol 100 mg twice daily.If SBP is ANDgt;150, take extra 100 mg labetalolTake vitsla twice a day and call in one week with listIncrease magnesium in dietLIFESTYLE CHANGEA healthy lifestyle is the most important component of your overall treatmentplan. Please give serious thought to the following areas and commit to makinglong term changes.EAT A WHOLE FOOD, PLANT BASED DIETThe nutrition your body gets is more important than the medicine you take.What matters most is the overall way you eat. We encourage you to minimize theuse of animal products (which include dairy and all meats except fatty fish)and use whole, unprocessed plant foods to provide your protein, vitamins andother nutrients. We have a lot of information to share with you on this topic. We also hold Shared Medical Appointments, where you can come visit with in the company of other patients and spend over an hour talking aboutthe challenges of changing the way you eat. This is not a ANDquot;dietANDquot;.It is a way of life that you will keep with you.EXERCISE REGULARLYIt is not important to spend hours in the gym, lifting weights and perspiringheavily. A total of 2-3 hours per week of aerobic (causing you to bemoderately short of breath) exercise is sufficient to improve your health.Talk to us before you begin a new exercise program, if you have heart diseaseor experience shortness of breath or chest pain.REDUCE STRESSChronic emotional and physical stress leads to disease. Ways of reducingstress include meditation, visualization, prayer, yoga and other forms ofrelaxation therapy. Consistency is the carrasquillo. Find a technique that works foryou and do it every day.CULTIVATE RELATIONSHIPSLoneliness and isolation have a major negative impact on health. Seek outothers who can love, care for and nurture you. Avoid hurtful relationships.MAINTAIN IDEAL BODY WEIGHTThe best way to do this is to do all the things above. Our bodies naturallyfind the right weight if we keep moving and feed ourselves the right food. Ifyour BMI is greater than 25, we strongly recommend a referral to a weightmanagement program. Please speak to us or your family physician aboutavailable programs.AVOID NICOTINE IN ALL FORMSThis includes all tobacco products, whether chewed, smoked, vaped, or rubbed onthe skin. Smoking cessation programs, which can make use of tobaccosubstitutes, medications to suppress cravings and behavior management, areavailable. Please contact your family physician about programs in your area.Referring Provider: LIU HSU [[id number]]Allergies As of Date: 02/07/2018 Noted Allergy ReactionSCOPOLAMINE 10/30/2011 1 - Mental Status Change Comments: HallucinationsIRON 09/03/2005 8 - GI Upset Comments: CAN TAKE SLO-IRONTALWIN (PENTAZOCINE LACTATE) 09/30/2009 1 - Mental Status Change Comments: HALLUCINATIONSVERAPAMIL HCL 05/06/2016 8 - GI Upset Comments: constipationDate Reviewed: 02/07/2018Reviewed by: Tika Jeffrey - Fully AssessedReason for Visit: Follow Up [171]Primary Visit Diagnosis:Renovascular hypertension [I15.0]Order(s):[facility] [[id number]] Order #: [id number] FUTURE hydroCHLOROthiazide (HYDRODIURIL, ESIDRIX) 25 mg tabletTake 0.5 tablets by mouth once daily.Disp: 90 tabletRfl: 1 labetalol (TRANDATE) 200 mg tabletTake 0.5 tablets by mouth twice daily.Disp: Rfl:Prescriptions as of 02/07/2018 Sig: HYDROCHLOROTHIAZIDE 25 MG TAB* Take 0.5 tablets by mouth onc* LABETALOL 200 MG TABLET Take 0.5 tablets by mouth twi* ACETAMINOPHEN 500 MG TABLET Take 1,000 mg by mouth every * TRAMADOL 50 MG TABLET Take 50 mg by mouth every 6 h* VALSARTAN 160 MG TABLET Take 1 tablet by mouth twice * SENOKOT ORAL Take 1 tablet by mouth once d* PHENERGAN ORAL Take 12.5 mg by mouth every 6* SYNTHROID 88 MCG TABLET Take 1 tablet by mouth once d* KETOCONAZOLE 2 % SHAMPOO Use to wash face and scalp tw* AZELASTINE 137 MCG (0.1 %) NA* Use 2 Sprays in each nostril * * ASPIRIN 81 MG CHEWABLE TABLET Take 81 mg by mouth once saumya* HYDROCODONE 5 MG-ACETAMINOPHE* EVERY 6 HOURS NEEDED ONDANSETRON HCL 4 MG TABLET Take 1 tablet by mouth every * NAPROXEN 500 MG TABLET Two times daily for three day* IPRATROPIUM BROMIDE 42 MCG (0* Use 2 Sprays in the nose four* GABAPENTIN 100 MG CAPSULE TAKE 2 CAPSULES BY MOUTH AT N* BIOTIN FORTE ORAL Take by mouth once daily. MULTIVITAMIN TABLET Take 1 tablet by mouth once d* COQ10 (LIPOSOMAL UBIQUINOL) O* Take by mouth once daily. PROBIOTIC ORAL Take by mouth once daily. * VITAMIN D3 1,000 UNIT CAPSULE Take 2 po daily = 2,000 * MINOXIDIL 5 % TOPICAL SOLUTION use once a dayMedication notes this encounter LABETALOL 200 MG TABLET >> Tika Jeffrey MA 02/07/2018 3:42 PM >> TIKA JEFFREY MA WedFeb 07, 2018 3:42 PM ONDANSETRON HCL 4 MG TABLET >> Tika Jeffrey MA 02/07/2018 3:42 PM >> TIKA JEFFREY MA WedFeb 07, 2018 3:42 PM Not taking NAPROXEN 500 MG TABLET >> Tika Jeffrey MA 02/07/2018 3:42 PM >> TIKA JEFFREY MA WedFeb 07, 2018 3:42 PM Not taking GABAPENTIN 100 MG CAPSULE >> Tika Jeffrey MA 02/07/2018 3:41 PM >> TIKA JEFFREY MA WedFeb 07, 2018 3:41 PM Not taking PROBIOTIC ORAL >> Tika Jeffrey JOAN 02/07/2018 3:43 PM >> TIAK JEFFREY MA WedFeb 07, 2018 3:43 PM Not taking MINOXIDIL 5 % TOPICAL SOLUTION >> Tika Jeffrey JOAN 02/07/2018 3:43 PM >> TIKA JEFFREY MA WedFeb 07, 2018 3:43 PM Not takingProblem List As Of Date 02/07/2018 Noted Resolved Essential hypertension [I10] INVALID FOR* More... PALPITATIONS [R00.2] INVALID FOR*08/31/2008 Coronary atherosclerosis [I25.10] INVALID FOR* More... ALOPECIA NOS [L65.9] INVALID FOR*08/31/2008 ANEMIA NOS [D64.9] INVALID FOR*08/31/2008 hx of telogen effluvium [L65.0] INVALID FOR* DIARRHEA NOS [R19.7] 08/31/2008 RETINAL VASCULAR CHANGES [H35.019] INVALID FOR* More... GOITER NOS [E04.9] INVALID FOR*01/09/2016 OSTEOARTHRITIS [M19.90] INVALID FOR*01/09/2016 More... VISUAL REFRACTION ERROR [H52.6] INVALID FOR*01/09/2016 VARICOSE VEINS [I83.90] INVALID FOR* CERVICAL OSTEOARTHRITIS [M47.812] INVALID FOR* Sleep disturbance, unspecified [G47.9] INVALID FOR*01/09/2016 URINARY CALCULUS NOS [N20.9] INVALID FOR* More... PERS HX OF IRRADIATION-face and neck [Z92.3] INVALID FOR* More... 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 MAMMOGRAPHIC MICROCALCIFICATION [R92.0] INVALID FOR* Unspecified hypertrophic and atrophic condition*INVALID FOR*08/12/2015 Scar condition and fibrosis of skin [L90.5] INVALID FOR*08/12/2015 CKD (Chronic Kidney Disease) Stage 3, GFR 30-59*INVALID FOR* More... Hair Loss [L65.9] INVALID FOR* Thyroid Disorder [E07.9] INVALID FOR* Hypothyroid [E03.9] INVALID FOR*09/21/2013 Visit for gynecologic examination [Z01.419] INVALID FOR* hx of low vitamin D treated [E55.9] INVALID FOR* More... Right Breast Cancer [C50.919] INVALID FOR* More... hx of breast cancer ER positive [C50.919] 09/10/2015 Stiffness in joint [M25.60] INVALID FOR* Malignant neoplasm of upper-inner quadrant of f*INVALID FOR* Basal cell carcinoma, face [C44.310] INVALID FOR* Hypothyroidism [E03.9] INVALID FOR* More... Colitis [K52.9] INVALID FOR*07/30/2017 Greater trochanteric bursitis of left hip [M70.*INVALID FOR* Hip arthritis [M16.10] INVALID FOR* Left hip impingement syndrome [M25.852] INVALID FOR* Tendinopathy of left gluteus medius [M67.952] INVALID FOR* Abnormality of gait [R26.9] INVALID FOR* Vaginal atrophy [N95.2] Dyspareunia [PEA5329] Seborrheic dermatitis [L21.9] INVALID FOR* Vaginismus [N94.2] Elevated blood uric acid level [E79.0] INVALID FOR* Localized edema [R60.0] INVALID FOR* Venous stasis [I87.8] INVALID FOR* Strain of rotator cuff [S46.019A] INVALID FOR* Collagenous colitis [K52.831] INVALID FOR* More... Other instructions from your clinician: Decrease HCTZ to 12.5 mg daily Take labetalol 100 mg twice daily. If SBP is >150, take extra 100 mg labetalol Take vitsla twice a day and call in one week with list Increase magnesium in diet LIFESTYLE CHANGE A healthy lifestyle is the most important component of your overall treatment plan. Please give serious thought to the following areas and commit to making halfway changes. EAT A WHOLE FOOD, PLANT BASED DIET The nutrition your body gets is more important than the medicine you take. What matters most is the overall way you eat. We encourage you to minimize the use of animal products (which include dairy and all meats except fatty fish) and use whole, unprocessed plant foods to provide your protein, vitamins and other nutrients. We have a lot of information to share with you on this topic. We also hold Shared Medical Appointments, where you can come visit with Dr. Berry in the company of other patients and spend over an hour talking about the challenges of changing the way you eat. This is not a diet. It is a way of life that you will keep with you. EXERCISE REGULARLY It is not important to spend hours in the gym, lifting weights and perspiring heavily. A total of 2-3 hours per week of aerobic (causing you to be moderately short of breath) exercise is sufficient to improve your health. Talk to us before you begin a new exercise program, if you have heart disease or experience shortness of breath or chest pain. REDUCE STRESS Chronic emotional and physical stress leads to disease. Ways of reducing stress include meditation, visualization, prayer, yoga and other forms of relaxation therapy. Consistency is the carrasquillo. Find a technique that works for you and do it every day. CULTIVATE RELATIONSHIPS Loneliness and isolation have a major negative impact on health. Seek out others who can love, care for and nurture you. Avoid hurtful relationships. MAINTAIN IDEAL BODY WEIGHT The best way to do this is to do all the things above. Our bodies naturally find the right weight if we keep moving and feed ourselves the right food. If your BMI is greater than 25, we strongly recommend a referral to a weight management program. Please speak to us or your family physician about available programs. AVOID NICOTINE IN ALL FORMS This includes all tobacco products, whether chewed, smoked, vaped, or rubbed on the skin. Smoking cessation programs, which can make use of tobacco substitutes, medications to suppress cravings and behavior management, are available. Please contact your family physician about programs in your area.Prescriptions ordered this encounter Disp Refills Start End HYDROCHLOROTHIAZIDE 25 MG TABLET 90 t* 1 02/07/2018 Class: Med Update Route: ORAL Sig: Take 0.5 tablets by mouth once daily. LABETALOL 200 MG TABLET 02/07/2018 Class: Med Update Route: ORAL Sig: Take 0.5 tablets by mouth twice daily.Medications Discontinued During This Encounter hydroCHLOROthiazide (HYDRODIURIL, ES* 90 t* 1 10/01/2017 02/07/2018 Route: ORAL Sig: Take 1 tablet by mouth once daily. Disc: Reason for discontinue is not on file. labetalol (TRANDATE) 200 mg tablet 02/04/2018 02/07/2018 Class: Med Update Route: ORAL Sig: Take 1 tablet by mouth twice daily. Disc: Reason for discontinue is not on file.Follow-up and Disposition History RecordedEncounter Number: [id number] Status:Closed by SCOTTY BERRY MD on 02/07/18 [facility] PROGRESSon 02-07-2018 PROGRESS HNO ID: [id number] thor: Scotty Rankin: (none)Author Type: PhysicianType: Progress NotesFiled: 02/07/2018 5:05 PMNote Text:PERTINENT CARDIAC HISTORYChest pain - normal cath and stressPalpitations - SVTHTNHLADHERENCE TO GUIDELINESACE-I or ARB for HF with prior LVEF<40 (NQF 0081) - N/AASA or Plavix for ASHD (NQF 0067) - metBeta cecilia for ASHD with prior WI or prior LVEF<40 (NQF 0070) - N/ABeta cecilia for HF with prior LVEF<40 (NQF 0083) - N/AACE-I or ARB for ASHD with DM or prior LVEF<40 (NQF 0066) - N/AStatin therapy for ASHD or FHL or DM - declinesBMI documented and plan if >25 (NQF 0421) - lifestyle recommendation formTobacco use screening and referral (NQF 0028) - lifestyle recommendationformRecommenda tion for whole food, plant based diet - lifestyle recommendationformCLINICAL IMPRESSION/PLAN:Zenaida Evans has labile blood pressure. She's probably overmedicated atthis point. She appears to be a bit dry. We have never done a RenalDoppler on her and I have recommended that we do this to assess thepossibility of renovascular hypertension, given that her blood pressure islabile.She will decrease HCTZ to 12.5 milligrams daily. I've also asked her todecrease labetalol to 100 milligrams twice daily. She may take an [id number] milligrams if her systolic blood pressure at the time of dosing isgreater than 150. Hopefully we can come to more equilibrium. She willcontinue Diovan at her current dose.She was advised to increase magnesium in her diet.I've asked her to try Dramamine for episodes of nausea and vertigo to seeif this helps. 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 I'veencouraged her to follow this up with Dr. Clemente. She has an appointmentlater this week in primary care.I will see her as originally scheduled but will be in touch with her as wemake adjustments in her medication. She was advised to check vital signstwice daily and send a list to me.Written and verbal health teaching given to patient, patient verbalizesunderstanding and agrees with treatment plan.DIAGNOSIS FOR VISIT:HypertensionChest painPalpitationsHISTORY OF PRESENT ILLNESSZenaida Evans returns for problem follow-up visit. She reports that herblood pressure has been more labile recently. She's had multiple emergencydepartment visits and her medications have been manipulated . She notesthat her pulse rate has occasionally been over 100. Blood pressure willvary from less than 100 to over 150.She has been having problems with some bone pain and headaches. She's hadonset of nausea and some mild vertigo over the last few weeks. She has hadintermittent constipation and occasional vomiting. She reports that [facility]had [facility].She's had rare , atypical chest discomfort. She denies orthopnea . She'shad minimal edema. She's had no syncope, but has had some lightheadednesswhen standing. She's had occasional palpitations. She denies TIAs,amaurosis, claudicationALLERGIES:ALLERG IESAllergen Reactions- Scopolamine Mental Status Change Hallucinations- Iron GI Upset CAN TAKE SLO-IRON- Talwin [Pentazocine* Mental Status Change HALLUCINATIONS- Verapamil Hcl GI Upset constipationCURRENT OUTPATIENT MEDICATIONS:acetaminophen (TYLENOL EXTRA STRENGTH) 500 mg tablet Take 1,000 mg bymouth every 8 hours as needed.traMADol (ULTRAM) 50 mg tablet Take 50 mg by mouth every 6 hours asneeded.valsartan (DIOVAN) 160 mg tablet Take 1 tablet by mouth twice daily.labetalol (TRANDATE) 200 mg tablet Take 1 tablet by mouth twice daily.sennosides (SENOKOT ORAL) Take 1 tablet by mouth once daily.promethazine HCl (PHENERGAN ORAL) Take 12.5 mg by mouth every 6 hours asneeded.SYNTHROID 88 mcg tablet Take 1 tablet by mouth once daily.ketoconazole (NIZORAL) 2 % shampoo Use to wash face and scalp two times aweek. Lather and leave in for 3-5 minutes before rinsing.azelastine (ASTELIN,ASTEPRO) 0.1% nasal spray Use 2 Sprays in each nostriltwice daily.hydroCHLOROthiazide (HYDRODIURIL, ESIDRIX) 25 mg tablet Take 1 tablet bymouth once daily.aspirin (GEORGETTE CHILDRENS ASPIRIN) 81 mg ORAL chewable tablet Take 81 mg bymouth once daily.HYDROcodone-acetaminop hen (NORCO) 5-325 mg per tablet EVERY 6 HOURS ASNEEDEDondansetron (ZOFRAN, HYDROCHLORIDE,) 4 mg tablet Take 1 tablet by mouthevery 8 hours as needed.naproxen (NAPROSYN) 500 mg tablet Two times daily for three days then twotimes daily as needed. Post-cibal.ipratropium bromide (ATROVENT) 0.06 % nasal spray Use 2 Sprays in the nosefour times daily as needed.gabapentin (NEURONTIN) 100 mg capsule TAKE 2 CAPSULES BY MOUTH AT NIGHT.BIOTIN/FOLIC ACID/VIT BCOMP,C (BIOTIN FORTE ORAL) Take by mouth oncedaily.multivitamin tablet Take 1 tablet by mouth once daily.COQ10, LIPOSOMAL UBIQUINOL, ORAL Take by mouth once daily.LACTOBACILLUS ACIDOPHILUS (PROBIOTIC ORAL) Take by mouth once daily.cholecalciferol(VITAMI N D 1,000 UNIT CAP) Take 2 po daily = 2,000MINOXIDIL 5 % TOP SOLN use once a dayPAST MEDICAL HISTORYDiagnosis Date- Breast cancer (HCC) 09/[address] Nina moraes ER positive s/p surgery/radiation and AI- Collagenous colitis 07/30/2017 On biopsy 2012.- Diarrhea hx of colitis- Diffuse cystic mastopathy- Dyspareunia- Essential hypertension- H/O complete eye exam 03/13/2011 no retinopathy detected -both eyes - [facility] - return in 1year - Dr. Ruby- hair thinning sees Dr Choudhary- Hormone replacement therapy (HRT) 1974-present stopped by 09/2011- hx of low vitamin D treated 08/2007 20.4 recheck only 23 9/08 improved to 54- PMH - PAST MEDICAL HISTORY OF cardiac arrhythmia- resolved with change in medication- Symptomatic states associated with artificial menopause 1974 THBSO for fibroids age 40- Vaginal atrophy 08/2015 offered vag DHEA- Vaginismus for PTPAST SURGICAL HISTORYProcedure Laterality Date- APPENDECTOMY- BREAST BIOPSY CORE 04/16/2009 right breast stereo core biopsy- BX OF BREAST; NEEDLE CORE 04/02/2008 right breast stereo core biopsy- BX/REMV,LYMPH NODE,DEEP AXILL 10/30/11 Right NL PM/SLNs- COLONOSCOP W/ OR W/O BRSH SPEC 09/08/13 Colonoscopy- MASTECTOMY, PARTIAL Right 10/30/2011 Right NL PM/SLNs- PAST SURGICAL HISTORY OF bilat vein stripping- PAST SURGICAL HISTORY OF Left 1990 left breast Atypical hyperplasia- TOTAL ABDOM HYSTERECTOMY early Hysterectomy, CAROL, due to fibroids.FAMILY HISTORYProblem Relation Age of Onset- Alzheimer's Disease Mother hypertension/stroke d89- Heart Father d 72- emphseyma [OTHER] Sister d 59- Breast Cancer Maternal AuntSocial History Marital status: Spouse name: Kaushal Years of education: 18 Number of children: 3Social History Main Topics Smoking status: Former Smoker Packs/day: 1.00 Years: 12.00 Types: Cigarettes Quit date: 01/19/1967 Smokeless status: Never Used Alcohol use: Yes 10.5 oz/week 7 Glasses of Wine (5oz) per week Comment: occasional wine with dinner Drug use: No Sexual activity: Yes Partners with: Male Comment: surgicalOther Topics ConcernBlood Transfusions NoExercise Yes Comment:[facility] [place] History Narrative . 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 3 children. 5 grandchildren (no greats yet). Enjoys gardening, anything outside, working on manuscript for a book [employer], [place]. Enjoys knitting, sewing and photgraphy.REVIEW OF SYSTEMS: General: No chills, fever, weight loss, night sweats. Respiratory: No productive cough. Cardiac: As noted above. GI: Nomelena. : No dysuria. Musculoskeletal: No myalgias.PHYSICAL EXAMINATION: S/he is alert and in no distress.VITAL SIGNS: BP 105/63 Pulse 66 Ht 5' 7 (1.70m) Wt 147 lb 11.2 oz(67.0kg) BMI 23.13 kg/(m2). Initial blood pressure was 80/42SHEENT: Skin is warm and dry. No xanthelasmas appreciated. Pharynx isbenign. There is no oral cyanosis. Neck: supple. No adenopathy orthyroid enlargement. Chest: Clear to percussion and auscultation.Trachea is midline. Air entry is equal. There is no chest walltenderness. Cardiac: Regular rhythm. S1 and S2 are normal. PMI isnondisplaced. There is a soft systolic ejection murmur. No click isheard. Carotids are brisk without bruits. JVP is less than 10 cm.Abdomen: Soft and nontender. There are no pulsatile masses or bruits. Noliver enlargement. Bowel sounds are active. Extremities: No edema.Pulses are intact and symmetrical. No clubbing or cyanosis. No femoralbruits. Neurologic: Grossly normal motor and sensory. S/he is alert andoriented x4.Recent labs were reviewed. Renal function is normal although she appears alittle dry. Troponin was undetectable. Magnesium was borderline low.Lipase was normal.Head CT showed no evidence of bleed or mass effect. This is a noncontrastscanElectronicall y Signed:Scotty Berry MDAprjoaquim 2017 4:03 [facility]:Susannah Clemente MD [facility] CNOVon 08-26-2017 CNOV Office Visit (AGCARDWST) -------ZENAIDA EVANS ([id number]) 1935 [address] Time Provider Wrzzvrokbt17/9/17 11:00 AM SCOTTY BERRYWSNegrito During your visit today, we recorded the following information about you: Pulse Blood pressure Weight Height 72/minute 140/84 69.3 kg 1.689 Dong Berry MD 08/27/2017 10:10 AM SignedPERTINENT CARDIAC HISTORYChest pain - normal cath and stressPalpitations - SVTHTNHLADHERENCE TO GUIDELINESACE-I or ARB for HF with prior LVEFANDlt;40 (NQF 0081) - N/AASA or Plavix for ASHD (NQF 0067) - metBeta cecilia for ASHD with prior WI or prior LVEFANDlt;40 (NQF 0070) - N/ABeta cecilia for HF with prior LVEFANDlt;40 (NQF 0083) - N/AACE-I or ARB for ASHD with DM or prior LVEFANDlt;40 (NQF 0066) - N/AStatin therapy for ASHD or FHL or DM - declinesBMI documented and plan if ANDgt;25 (NQF 0421) - lifestyle recommendation formTobacco use screening and referral (NQF 0028) - lifestyle recommendation formRecommendation for whole food, plant based diet - lifestyle recommendation formCLINICAL IMPRESSION/PLAN:Zenaida Evans has stable atrial arrhythmia. She's been advised to continueDiovan. A small dose of verapamil may be tolerated in the future if she hasrecurrent symptoms. It is clear that she cannot tolerate verapamil at a dosewhich would effectively control her blood pressure as well. She will continueDiovan.Chest pain pattern is under good control. Recent stress test was negative forischemia.We had a long discussion regarding possible indication for statin therapy. Sheis well motivated to make changes in her nutrition, which would be expected toalter her lipid profile. At her present levels, she has a risk of heart diseasewhich, by guidelines, support only a consideration of moderate statin. Thisshould be repeated in a few months on her new nutrition plan and calculationshould be updated.She's been advised to monitor blood pressures at home. I've asked her to sendme a copy of her next lipid profile and we can make a recalculation.I will see her in 12 months or as neededWritten and verbal health teaching given to patient, patient verbalizesunderstanding and agrees with treatment plan.This note was generated using [employer] voice recognition system, and there may besome incorrect words, spellings, and punctuation that were not noted inchecking the note before saving.DIAGNOSIS FOR VISIT:SVTHypertensionHISTORY OF PRESENT ILLNESSZenaida Evans returns for follow-up of her atypical chest pain, history ofSVT and hypertension. She is questions whether she should be on a statin .She's had no recent chest discomfort. She is now on Diovan with good control ofblood pressure. She was unable to tolerate verapamil due to constipation.She's had no recent chest discomfort. She denies orthopnea. She's had minimaledema. She's had no TIAs, amaurosis, claudication. She's had no syncope. She'shad very few palpitations .ALLERGIES:ALLERGIESAllergen Reactions- Scopolamine Mental Status Change Hallucinations- Iron GI Upset CAN TAKE SLO-IRON- Talwin [Pentazocine* Mental Status Change HALLUCINATIONS- Verapamil Hcl GI Upset constipationCURRENT OUTPATIENT MEDICATIONS:budesonide, enteric coated (ENTOCORT EC) 3 mg 24 hr capsule Take 3 capsules bymouth once daily.ipratropium bromide (ATROVENT) 0.06 % nasal spray Use 2 Sprays in the nose fourtimes daily as needed.SYNTHROID 88 mcg tablet Take 1 tablet by mouth once daily.valsartan (DIOVAN) 80 mg tablet Take 1 tablet by mouth once daily.gabapentin (NEURONTIN) 100 mg capsule TAKE 2 CAPSULES BY MOUTH AT NIGHT.ketoconazole (NIZORAL) 2 % shampoo Use to wash face and scalp two times a week.Lather and leave in for 3-5 minutes before rinsing.hydroCHLOROthiazide (HYDRODIURIL, ESIDRIX) 25 mg tablet Take 1 tablet by mouthonce daily.BIOTIN/FOLIC ACID/VIT BCOMP,C (BIOTIN FORTE ORAL) Take by mouth once daily.multivitamin tablet Take 1 tablet by mouth once daily.COQ10, LIPOSOMAL UBIQUINOL, ORAL Take by mouth once daily.LACTOBACILLUS ACIDOPHILUS (PROBIOTIC ORAL) Take by mouth once daily.aspirin (GEORGETTE CHILDRENS ASPIRIN) 81 mg ORAL chewable tablet Take 81 mg bymouth once daily.cholecalciferol(VITAMI N D 1,000 UNIT CAP) Take 2 po daily = 2,000MINOXIDIL 5 % TOP SOLN use once a daychlordiazePOXIDE-clidiniu m (LIBRAX) 5-2.5 mg per capsule Take 1 capsule bymouth before meals and at bedtime.diphenoxylate-atropi ne (LOMOTIL) 2.5-0.025 mg per tablet Take 1 tablet by mouthtwice daily as needed.bismuth subsalicylate (BISMUTH) 262 mg chew Take 1 tablet by mouth twice daily.PAST MEDICAL HISTORYDiagnosis Date- Breast cancer (HCC) 09/[address] Wood right ER positive s/p surgery/radiation and AI- Collagenous colitis 07/30/2017 On biopsy 2012.- Diarrhea hx of colitis- Diffuse cystic mastopathy- Dyspareunia- Essential hypertension- H/O complete eye exam 03/13/2011 no retinopathy detected -both eyes - [facility] - return in 1 year -Dr. Ruby- hair thinning sees Dr Choudhary- Hormone replacement therapy (HRT) 1974-present stopped by 09/2011- hx of low vitamin D treated 08/2007 20.4 recheck only 23 06/25 improved to 55- PMH - PAST MEDICAL HISTORY OF cardiac arrhythmia- resolved with change in medication- Symptomatic states associated with artificial menopause 1974 THBSO for fibroids age 40- Vaginal atrophy 08/2015 offered vag DHEA- Vaginismus for PTPAST SURGICAL HISTORYProcedure Laterality Date- APPENDECTOMY- BREAST BIOPSY CORE 04/16/2009 right breast stereo core biopsy- BX OF BREAST; NEEDLE CORE 04/02/2008 right breast stereo core biopsy- BX/REMV,LYMPH NODE,DEEP AXILL 10/30/11 Right NL PM/SLNs- COLONOSCOP W/ OR W/O BRSH SPEC 09/08/13 Colonoscopy- MASTECTOMY, PARTIAL Right 10/30/2011 Right NL PM/SLNs- PAST SURGICAL HISTORY OF bilat vein stripping- PAST SURGICAL HISTORY OF Left 1991 left breast Atypical hyperplasia- TOTAL ABDOM HYSTERECTOMY early 1970's Hysterectomy, CAROL, due to fibroids.FAMILY HISTORYProblem Relation Age of Onset- Alzheimer's Disease Mother hypertension/stroke d89- Heart Father d 72- emphseyma [OTHER] Sister d 59- Breast Cancer Maternal AuntSocial History Marital status: Spouse name: Kaushal Years of education: 18 Number of children: 3Social History Main Topics Smoking status: Former Smoker Packs/day: 1.00 Years: 12.00 Types: Cigarettes Quit date: 01/19/1967 Smokeless status: Never Used Alcohol use: Yes 10.5 oz/week 7 Glasses of Wine (5oz) per week Comment: occasional wine with dinner Drug use: No Sexual activity: Yes Partners with: Male Comment: surgicalOther Topics ConcernBlood Transfusions NoExercise Yes Comment:[facility] [place]Social History Narrative . 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 3 children. 5 grandchildren (no greats yet). Enjoys gardening, anything outside, working on manuscript for a book [employer], [place]. Enjoys knitting, sewing and photgraphy.REVIEW OF SYSTEMS: General: No chills, fever, weight loss, night sweats.Respiratory: No productive cough. Cardiac: As noted above. GI: No melena.: No dysuria. Musculoskeletal: No myalgias.PHYSICAL EXAMINATION: S/he is alert and in no distress.VITAL SIGNS: BP 140/84 Pulse 72 Ht 5' 6.5ANDquot; (1.69m) Wt 152 lb 11.2 oz(69.3kg) BMI 24.28 kg/(m2).SHEENT: Skin is warm and dry. No xanthelasmas appreciated. Pharynx isbenign. There is no oral cyanosis. Neck: supple. No adenopathy or thyroidenlargement. Chest: Clear to percussion and auscultation. Trachea is midline. Air entry is equal. There is no chest wall tenderness. Cardiac: Regularrhythm. S1 and S2 are normal. PMI is nondisplaced. There is a soft systolicejection murmur. No click is heard. Carotids are brisk without bruits. JVPis less than 10 cm. Abdomen: Soft and nontender. There are no pulsatilemasses or bruits. No liver enlargement. Bowel sounds are active.Extremities: No edema. Pulses are intact and symmetrical. No clubbing orcyanosis. No femoral bruits. Neurologic: Grossly normal motor and sensory.S/he is alert and oriented x4.Recent labs were reviewed. Renal function is minimally impaired. TSH wasnormal. Most recent LDL was 108.Echocardiogram was performed last year and showed normal ejection fraction.There was no evidence of ischemia on stress echo.EKG today shows sinus rhythm with left atrial enlargement. There is no changesince 06/23.10 year risk of heart disease or stroke was calculated at 38%. At this level,for an 82-year-old, guidelines suggest she consider moderate intensity statintherapy.Electronically Signed:Scotty Berry MDAugember 2016 11:21 [facility]:Héctor Vargas MD 08/26/2017 11:22 AM SignedCRITICAL ACCESS HOSPITALSTYLE CHANGEA healthy lifestyle is the most important component of your overall treatmentplan. Please give serious thought to the following areas and commit to makinglong term changes.EAT A WHOLE FOOD, PLANT BASED DIETThe nutrition your body gets is more important than the medicine you take.What matters most is the overall way you eat. We encourage you to minimize theuse of animal products (which include dairy and all meats except fatty fish)and use whole, unprocessed plant foods to provide your protein, vitamins andother nutrients. We have a lot of information to share with you on this topic. We also hold Shared Medical Appointments, where you can come visit with in the company of other patients and spend over an hour talking aboutthe challenges of changing the way you eat. This is not a ANDquot;dietANDquot;.It is a way of life that you will keep with you.EXERCISE REGULARLYIt is not important to spend hours in the gym, lifting weights and perspiringheavily. A total of 2-3 hours per week of aerobic (causing you to bemoderately short of breath) exercise is sufficient to improve your health.Talk to us before you begin a new exercise program, if you have heart diseaseor experience shortness of breath or chest pain.REDUCE STRESSChronic emotional and physical stress leads to disease. Ways of reducingstress include meditation, visualization, prayer, yoga and other forms ofrelaxation therapy. Consistency is the carrasquillo. Find a technique that works foryou and do it every day.CULTIVATE RELATIONSHIPSLoneliness and isolation have a major negative impact on health. Seek outothers who can love, care for and nurture you. Avoid hurtful relationships.MAINTAIN IDEAL BODY WEIGHTThe best way to do this is to do all the things above. Our bodies naturallyfind the right weight if we keep moving and feed ourselves the right food. Ifyour BMI is greater than 25, we strongly recommend a referral to a weightmanagement program. Please speak to us or your family physician aboutavailable programs.AVOID NICOTINE IN ALL FORMSThis includes all tobacco products, whether chewed, smoked, vaped, or rubbed onthe skin. Smoking cessation programs, which can make use of tobaccosubstitutes, medications to suppress cravings and behavior management, areavailable. Please contact your family physician about programs in your area.Referring Provider: SUSANNAH CLEMENTE [[id number]]Allergies As of Date: 08/26/2017 Noted Allergy ReactionSCOPOLAMINE 10/30/2011 1 - Mental Status Change Comments: HallucinationsIRON 09/03/2005 8 - GI Upset Comments: CAN TAKE SLO-IRONTALWIN (PENTAZOCINE LACTATE) 09/30/2009 1 - Mental Status Change Comments: HALLUCINATIONSVERAPAMIL HCL 05/06/2016 8 - GI Upset Comments: constipationDate Reviewed: 08/26/2017Reviewed by: Tika Jeffrey - Fully AssessedReason for Visit: Follow Up [171] Cmt: overdue office visitPrimary Visit Diagnosis:Hypertension, essential [I10] Other Visit Diagnoses:Chest pain, unspecified type [R07.9] SVT (supraventricular tachycardia) ([facility]) [I47.1]Order(s):ECG B/O W INTERP (MED OFFICE) [ECG06] Order #: [id number] as of 08/26/2017 Sig: BUDESONIDE DR - ER 3 MG CAPSU* Take 3 capsules by mouth once* IPRATROPIUM BROMIDE 0.06 % NA* Use 2 Sprays in the nose four* SYNTHROID 88 MCG TABLET Take 1 tablet by mouth once d* VALSARTAN 80 MG TABLET Take 1 tablet by mouth once d* GABAPENTIN 100 MG CAPSULE TAKE 2 CAPSULES BY MOUTH AT N* KETOCONAZOLE 2 % SHAMPOO Use to wash face and scalp tw* HYDROCHLOROTHIAZIDE 25 MG TAB* Take 1 tablet by mouth once d* BIOTIN FORTE ORAL Take by mouth once daily. MULTIVITAMIN TABLET Take 1 tablet by mouth once d* COQ10 (LIPOSOMAL UBIQUINOL) O* Take by mouth once daily. PROBIOTIC ORAL Take by mouth once daily. * ASPIRIN 81 MG CHEWABLE TABLET Take 81 mg by mouth once saumya* * VITAMIN D3 1,000 UNIT CAPSULE Take 2 po daily = 2,000 * MINOXIDIL 5 % TOPICAL SOLUTION use once a day CHLORDIAZEPOXIDE-CLIDINIUM 5 * Take 1 capsule by mouth befor* DIPHENOXYLATE-ATROPINE 2.5 MG* Take 1 tablet by mouth twice * BISMUTH SUBSALICYLATE 262 MG * Take 1 tablet by mouth twice *Medication notes this encounter CHLORDIAZEPOXIDE-CLIDINIUM 5 MG-2.5 MG CAPSULE >> Tika Jeffrey MA 08/26/2017 10:51 AM >> TIKA JEFFREY MA [facility] Aug 26, 2017 10:51 AM Not taking DIPHENOXYLATE-ATROPINE 2.5 MG-0.025 MG TABLET >> Tika Jeffrey MA 08/26/2017 10:51 AM >> TIKA JEFFREY MA [facility] Aug 26, 2017 10:51 AM Not taking BISMUTH SUBSALICYLATE 262 MG CHEWABLE TABLET >> Tika Jeffrey MA 08/26/2017 10:50 AM >> TIKA JEFFREY MA [facility] Aug 26, 2017 10:50 AM Not takingProblem List As Of Date 08/26/2017 Noted Resolved Essential hypertension [I10] INVALID FOR* More... PALPITATIONS [R00.2] INVALID FOR*08/31/2008 Coronary atherosclerosis [I25.10] INVALID FOR* More... ALOPECIA NOS [L65.9] INVALID FOR*08/31/2008 ANEMIA NOS [D64.9] INVALID FOR*08/31/2008 hx of telogen effluvium [L65.0] INVALID FOR* DIARRHEA NOS [R19.7] 08/31/2008 RETINAL VASCULAR CHANGES [H35.019] INVALID FOR* More... GOITER NOS [E04.9] INVALID FOR*01/09/2016 OSTEOARTHRITIS [M19.90] INVALID FOR*01/09/2016 More... VISUAL REFRACTION ERROR [H52.6] INVALID FOR*01/09/2016 VARICOSE VEINS [I83.90] INVALID FOR* CERVICAL OSTEOARTHRITIS [M47.812] INVALID FOR* Sleep disturbance, unspecified [G47.9] INVALID FOR*01/09/2016 URINARY CALCULUS NOS [N20.9] INVALID FOR* More... PERS HX OF IRRADIATION-face and neck [Z92.3] INVALID FOR* More... 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 MAMMOGRAPHIC MICROCALCIFICATION [R92.0] INVALID FOR* Unspecified hypertrophic and atrophic condition*INVALID FOR*08/12/2015 Scar condition and fibrosis of skin [L90.5] INVALID FOR*08/12/2015 CKD (Chronic Kidney Disease) Stage 3, GFR 30-59*INVALID FOR* More... Hair Loss [L65.9] INVALID FOR* Thyroid Disorder [E07.9] INVALID FOR* Hypothyroid [E03.9] INVALID FOR*09/21/2013 Visit for gynecologic examination [Z01.419] INVALID FOR* hx of low vitamin D treated [E55.9] INVALID FOR* More... Right Breast Cancer [C50.919] INVALID FOR* More... hx of breast cancer ER positive [C50.919] 09/10/2015 Stiffness in joint [M25.60] INVALID FOR* Malignant neoplasm of upper-inner quadrant of f*INVALID FOR* Basal cell carcinoma, face [C44.310] INVALID FOR* Hypothyroidism [E03.9] INVALID FOR* More... Colitis [K52.9] INVALID FOR*07/30/2017 Greater trochanteric bursitis of left hip [M70.*INVALID FOR* Hip arthritis [M16.10] INVALID FOR* Left hip impingement syndrome [M25.852] INVALID FOR* Tendinopathy of left gluteus medius [M67.952] INVALID FOR* Abnormality of gait [R26.9] INVALID FOR* Vaginal atrophy [N95.2] Dyspareunia [[id number]] Seborrheic dermatitis [L21.9] INVALID FOR* Vaginismus [N94.2] Elevated blood uric acid level [E79.0] INVALID FOR* Localized edema [R60.0] INVALID FOR* Venous stasis [I87.8] INVALID FOR* Strain of rotator cuff [S46.019A] INVALID FOR* Collagenous colitis [K52.831] INVALID FOR* More... Other instructions from your clinician: LIFESTYLE CHANGE A healthy lifestyle is the most important component of your overall treatment plan. Please give serious thought to the following areas and commit to making halfway changes. EAT A WHOLE FOOD, PLANT BASED DIET The nutrition your body gets is more important than the medicine you take. What matters most is the overall way you eat. We encourage you to minimize the use of animal products (which include dairy and all meats except fatty fish) and use whole, unprocessed plant foods to provide your protein, vitamins and other nutrients. We have a lot of information to share with you on this topic. We also hold Shared Medical Appointments, where you can come visit with Dr. Berry in the company of other patients and spend over an hour talking about the challenges of changing the way you eat. This is not a diet. It is a way of life that you will keep with you. EXERCISE REGULARLY It is not important to spend hours in the gym, lifting weights and perspiring heavily. A total of 2-3 hours per week of aerobic (causing you to be moderately short of breath) exercise is sufficient to improve your health. Talk to us before you begin a new exercise program, if you have heart disease or experience shortness of breath or chest pain. REDUCE STRESS Chronic emotional and physical stress leads to disease. Ways of reducing stress include meditation, visualization, prayer, yoga and other forms of relaxation therapy. Consistency is the carrasquillo. Find a technique that works for you and do it every day. CULTIVATE RELATIONSHIPS Loneliness and isolation have a major negative impact on health. Seek out others who can love, care for and nurture you. Avoid hurtful relationships. MAINTAIN IDEAL BODY WEIGHT The best way to do this is to do all the things above. Our bodies naturally find the right weight if we keep moving and feed ourselves the right food. If your BMI is greater than 25, we strongly recommend a referral to a weight management program. Please speak to us or your family physician about available programs. AVOID NICOTINE IN ALL FORMS This includes all tobacco products, whether chewed, smoked, vaped, or rubbed on the skin. Smoking cessation programs, which can make use of tobacco substitutes, medications to suppress cravings and behavior management, are available. Please contact your family physician about programs in your area.Follow-up and Disposition History RecordedEncounter Number: [id number] Status:Closed by SCOTTY BERRY MD on 08/27/17 [facility] PROGRESSon 08-26-2017 PROGRESS HNO ID: [id number] thor: Scotty Rankin: (none)Author Type: PhysicianType: Progress NotesFiled: 08/27/2017 10:10 AMNote Text:PERTINENT CARDIAC HISTORYChest pain - normal cath and stressPalpitations - SVTHTNHLADHERENCE TO GUIDELINESACE-I or ARB for HF with prior LVEF<40 (NQF 0081) - N/AASA or Plavix for ASHD (NQF 0067) - metBeta cecilia for ASHD with prior WI or prior LVEF<40 (NQF 0070) - N/ABeta cecilia for HF with prior LVEF<40 (NQF 0083) - N/AACE-I or ARB for ASHD with DM or prior LVEF<40 (NQF 0066) - N/AStatin therapy for ASHD or FHL or DM - declinesBMI documented and plan if >25 (NQF 0421) - lifestyle recommendation formTobacco use screening and referral (NQF 0028) - lifestyle recommendationformRecommenda tion for whole food, plant based diet - lifestyle recommendationformCLINICAL IMPRESSION/PLAN:Zenaida Evans has stable atrial arrhythmia. She's been advised tocontinue Diovan. A small dose of verapamil may be tolerated in the futureif she has recurrent symptoms. It is clear that she cannot tolerateverapamil at a dose which would effectively control her blood pressure aswell. She will continue Diovan.Chest pain pattern is under good control. Recent stress test was negativefor ischemia.We had a long discussion regarding possible indication for statin therapy.She is well motivated to make changes in her nutrition, which would beexpected to alter her lipid profile. At her present levels, she has a riskof heart disease which, by guidelines, support only a consideration ofmoderate statin. This should be repeated in a few months on her newnutrition plan and calculation should be updated.She's been advised to monitor blood pressures at home. I've asked her tosend me a copy of her next lipid profile and we can make a recalculation.I will see her in 12 months or as neededWritten and verbal health teaching given to patient, patient verbalizesunderstanding and agrees with treatment plan.This note was generated using [employer] voice recognition system, and theremay be some incorrect words, spellings, and punctuation that were notnoted in checking the note before saving.DIAGNOSIS FOR VISIT:SVTHypertensionHISTORY OF PRESENT ILLNESSZenaida Evans returns for follow-up of her atypical chest pain, historyof SVT and hypertension. She is questions whether she should be on astatin .She's had no recent chest discomfort. She is now on Diovan with goodcontrol of blood pressure. She was unable to tolerate verapamil due toconstipation.She's had no recent chest discomfort. She denies orthopnea. She's hadminimal edema. She's had no TIAs, amaurosis, claudication. She's had nosyncope. She's had very few palpitations .ALLERGIES:ALLERGIESAllergen Reactions- Scopolamine Mental Status Change Hallucinations- Iron GI Upset CAN TAKE SLO-IRON- Talwin [Pentazocine* Mental Status Change HALLUCINATIONS- Verapamil Hcl GI Upset constipationCURRENT OUTPATIENT MEDICATIONS:budesonide, enteric coated (ENTOCORT EC) 3 mg 24 hr capsule Take 3capsules by mouth once daily.ipratropium bromide (ATROVENT) 0.06 % nasal spray Use 2 Sprays in the nosefour times daily as needed.SYNTHROID 88 mcg tablet Take 1 tablet by mouth once daily.valsartan (DIOVAN) 80 mg tablet Take 1 tablet by mouth once daily.gabapentin (NEURONTIN) 100 mg capsule TAKE 2 CAPSULES BY MOUTH AT NIGHT.ketoconazole (NIZORAL) 2 % shampoo Use to wash face and scalp two times aweek. Lather and leave in for 3-5 minutes before rinsing.hydroCHLOROthiazide (HYDRODIURIL, ESIDRIX) 25 mg tablet Take 1 tablet bymouth once daily.BIOTIN/FOLIC ACID/VIT BCOMP,C (BIOTIN FORTE ORAL) Take by mouth oncedaily.multivitamin tablet Take 1 tablet by mouth once daily.COQ10, LIPOSOMAL UBIQUINOL, ORAL Take by mouth once daily.LACTOBACILLUS ACIDOPHILUS (PROBIOTIC ORAL) Take by mouth once daily.aspirin ([facility] ASPIRIN) 81 mg ORAL chewable tablet Take 81 mg bymouth once daily.cholecalciferol(VITAMI N D 1,000 UNIT CAP) Take 2 po daily = 2,000MINOXIDIL 5 % TOP SOLN use once a daychlordiazePOXIDE-clidiniu m (LIBRAX) 5-2.5 mg per capsule Take 1 capsule bymouth before meals and at bedtime.diphenoxylate-atropi ne (LOMOTIL) 2.5-0.025 mg per tablet Take 1 tablet bymouth twice daily as needed.bismuth subsalicylate (BISMUTH) 262 mg chew Take 1 tablet by mouth twicedaily.PAST MEDICAL HISTORYDiagnosis Date- Breast cancer (HCC) 09/[address] Nina moraes ER positive s/p surgery/radiation and AI- Collagenous colitis 07/30/2017 On biopsy 2012.- Diarrhea hx of colitis- Diffuse cystic mastopathy- Dyspareunia- Essential hypertension- H/O complete eye exam 03/13/2011 no retinopathy detected -both eyes - [facility] - return in 1year - Dr. Ruby- hair thinning sees Dr Choudhary- Hormone replacement therapy (HRT) 1974-present stopped by 09/2011- hx of low vitamin D treated 08/2007 20.4 recheck only 23 / improved to 54- PMH - PAST MEDICAL HISTORY OF cardiac arrhythmia- resolved with change in medication- Symptomatic states associated with artificial menopause 1974 THBSO for fibroids age 40- Vaginal atrophy 08/2015 offered vag DHEA- Vaginismus for PTPAST SURGICAL HISTORYProcedure Laterality Date- APPENDECTOMY- BREAST BIOPSY CORE 04/16/2009 right breast stereo core biopsy- BX OF BREAST; NEEDLE CORE 04/02/2008 right breast stereo core biopsy- BX/REMV,LYMPH NODE,DEEP AXILL 10/30/11 Right NL PM/SLNs- COLONOSCOP W/ OR W/O BRSH SPEC 09/08/13 Colonoscopy- MASTECTOMY, PARTIAL Right 10/30/2011 Right NL PM/SLNs- PAST SURGICAL HISTORY OF bilat vein stripping- PAST SURGICAL HISTORY OF Left 1991 left breast Atypical hyperplasia- TOTAL ABDOM HYSTERECTOMY early 1969's Hysterectomy, CAROL, due to fibroids.FAMILY HISTORYProblem Relation Age of Onset- Alzheimer's Disease Mother hypertension/stroke d89- Heart Father d 72- emphseyma [OTHER] Sister d 59- Breast Cancer Maternal AuntSocial History Marital status: Spouse name: Kaushal Years of education: 18 Number of children: 3Social History Main Topics Smoking status: Former Smoker Packs/day: 1.00 Years: 12.00 Types: Cigarettes Quit date: 01/19/1967 Smokeless status: Never Used Alcohol use: Yes 10.5 oz/week 7 Glasses of Wine (5oz) per week Comment: occasional wine with dinner Drug use: No Sexual activity: Yes Partners with: Male Comment: surgicalOther Topics ConcernBlood Transfusions NoExercise Yes Comment:[facility] [place]Social History Narrative . 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 3 children. 5 grandchildren (no greats yet). Enjoys gardening, anything outside, working on manuscript for a book on[employer], [place]. Enjoys knitting, sewing and photgraphy.REVIEW OF SYSTEMS: General: No chills, fever, weight loss, night sweats. Respiratory: No productive cough. Cardiac: As noted above. GI: Nomelena. : No dysuria. Musculoskeletal: No myalgias.PHYSICAL EXAMINATION: S/he is alert and in no distress.VITAL SIGNS: BP 140/84 Pulse 72 Ht 5' 6.5 (1.69m) Wt 152 lb 11.2 oz(69.3kg) BMI 24.28 kg/(m2).SHEENT: Skin is warm and dry. No xanthelasmas appreciated. Pharynx isbenign. There is no oral cyanosis. Neck: supple. No adenopathy orthyroid enlargement. Chest: Clear to percussion and auscultation.Trachea is midline. Air entry is equal. There is no chest walltenderness. Cardiac: Regular rhythm. S1 and S2 are normal. PMI isnondisplaced. There is a soft systolic ejection murmur. No click isheard. Carotids are brisk without bruits. JVP is less than 10 cm.Abdomen: Soft and nontender. There are no pulsatile masses or bruits. Noliver enlargement. Bowel sounds are active. Extremities: No edema.Pulses are intact and symmetrical. No clubbing or cyanosis. No femoralbruits. Neurologic: Grossly normal motor and sensory. S/he is alert andoriented x4.Recent labs were reviewed. Renal function is minimally impaired. TSH wasnormal. Most recent LDL was 108.Echocardiogram was performed last year and showed normal ejectionfraction. There was no evidence of ischemia on stress echo.EKG today shows sinus rhythm with left atrial enlargement. There is nochange since 06/23.10 year risk of heart disease or stroke was calculated at 38%. At thislevel, for an 82-year-old, guidelines suggest she consider moderateintensity statin therapy.Electronically Signed:Scotty Berry MDNovember 2016 11:21 [facility]:Susannah Clemente MD [facility] Additional Injections: Cathryn farias A1 [facility] Vital Signs Date Time Vital Sign Value Performing Clinician Rosemary gonzales 04-03-2025 12:08-0400 Diastolic blood pressure 89 mm[Hg] Paul Bautista MD Work Phone: [facility] 04-03-2025 12:08-0400 Systolic blood pressure 168 mm[Hg] Paul Bautista MD Work Phone: [facility] 04-03-2025 12:04-0400 Body height 168.9 cm Paul Bautista MD Work Phone: [facility] 04-03-2025 12:04-0400 Body mass index (BMI) [Ratio] 20.51 kg/m2 Paul Bautista MD Work Phone: [facility] 04-03-2025 12:04-0400 Body weight 58.51 kg Paul Bautista MD Work Phone: [facility] 04-03-2025 12:04-0400 Heart rate 67 /min Paul Bautista MD Work Phone: [facility] 04-03-2025 12:04-0400 Respiratory rate 15 /min Paul Bautista MD Work Phone: [facility] 04-03-2025 12:04-0400 SaO2% (BldA) [Mass fraction] 95 % Paul Bautista MD Work Phone: [facility] 03-27-2025 16:37-0400 Diastolic blood pressure 81 mm[Hg] Susannah Clemente MD Work Phone: [facility] 03-27-2025 16:37-0400 Systolic blood pressure 149 mm[Hg] Susannah Clemente MD Work Phone: [facility] 03-27-2025 16:02-0400 Body height 167.6 cm Susannah Clemente MD Work Phone: [facility] 03-27-2025 16:02-0400 Body mass index (BMI) [Ratio] 21.49 kg/m2 Susannah Clemente MD Work Phone: [facility] 03-27-2025 16:02-0400 Body temperature 97.59 [degF] Susannah Clemente MD Work Phone: [facility] 03-27-2025 16:02-0400 Body weight 60.4 kg Susannah Clemente MD Work Phone: [facility] 03-27-2025 16:02-0400 Heart rate 62 /min Susannah Clemente MD Work Phone: [facility] 03-27-2025 16:02-0400 SaO2% (BldA) [Mass fraction] 97 % Susannah Clemente MD Work Phone: [facility] 07-26-2024 13:57-0400 Body height 167.6 cm Michelle Choudhary MD Work Phone: [facility] 07-26-2024 13:57-0400 Body mass index (BMI) [Ratio] 21.69 kg/m2 Michelle Choudhary MD Work Phone: [facility] 07-26-2024 13:57-0400 Body weight 60.96 kg Michelle Choudhary MD Work Phone: [facility] 07-26-2024 13:57-0400 Diastolic blood pressure 75 mm[Hg] Michelle Choudhary MD Work Phone: [facility] 07-26-2024 13:57-0400 Systolic blood pressure 188 mm[Hg] Michelle Choudhary MD Work Phone: [facility] 07-17-2024 10:43-0400 Body mass index (BMI) [Ratio] 22.1 kg/m2 Dominguez Harkins MD Work Phone: [facility] 07-17-2024 10:43-0400 Body temperature 97.3 [degF] Dominguez Harkins MD Work Phone: [facility] 07-17-2024 10:43-0400 Body weight 62.1 kg Dominguez Harkins MD Work Phone: [facility] 07-17-2024 10:43-0400 Diastolic blood pressure 84 mm[Hg] Dominguez Harkins MD Work Phone: [facility] 07-17-2024 10:43-0400 Heart rate 82 /min Dominguez Harkins MD Work Phone: [facility] 07-17-2024 10:43-0400 Respiratory rate 18 /min Dominguez Harkins MD Work Phone: [facility] 07-17-2024 10:43-0400 SaO2% (BldA) [Mass fraction] 95 % Dominguez Harkins MD Work Phone: [facility] 07-17-2024 10:43-0400 Systolic blood pressure 144 mm[Hg] Dominguez Harkins MD Work Phone: [facility] 07-13-2024 14:28-0400 Body mass index (BMI) [Ratio] 22.17 kg/m2 Erwin Rosales MD Work Phone: [facility] 07-13-2024 14:28-0400 Body temperature 98.2 [degF] Erwin Rosales MD Work Phone: [facility] 07-13-2024 14:280400 Body weight 62.3 kg Erwin Rosales MD Work Phone: [facility] 07-13-2024 14:28-0400 Diastolic blood pressure 82 mm[Hg] Erwin Rosales MD Work Phone: [facility] 07-13-2024 14:28-0400 Heart rate 63 /min Erwin Rosales MD Work Phone: [facility] 07-13-2024 14:28-0400 Respiratory rate 20 /min Erwin Rosales MD Work Phone: [facility] 07-13-2024 14:28-0400 SaO2% (BldA) [Mass fraction] 97 % Erwin Rosales MD Work Phone: [facility] 07-13-2024 14:28-0400 Systolic blood pressure 165 mm[Hg] Erwin Rosales MD Work Phone: [facility] 07-03-2024 10:20-0400 Body mass index (BMI) [Ratio] 21.81 kg/m2 Susannah Clemente MD Work Phone: [facility] 07-03-2024 10:20-0400 Body temperature 97.9 [degF] Susannah Clemente MD Work Phone: [facility] 07-03-2024 10:20-0400 Body weight 61.3 kg Susannah Clemente MD Work Phone: [facility] 07-03-2024 10:20-0400 Diastolic blood pressure 72 mm[Hg] Susannah Clemente MD Work Phone: [facility] 07-03-2024 10:20-0400 Heart rate 74 /min Susannah Clemente MD Work Phone: [facility] 07-03-2024 10:20-0400 SaO2% (BldA) [Mass fraction] 96 % Susannah Clemnete MD Work Phone: [facility] 07-03-2024 10:20-0400 Systolic blood pressure 136 mm[Hg] Susannah Clemente MD Work Phone: [facility] 06-26-2024 15:51-0400 Body mass index (BMI) [Ratio] 21.63 kg/m2 Emilee Indorf MANAGER [employer] Work Phone: [facility] 06-26-2024 15:51-0400 Body temperature 97.39 [degF] Emilee Indorf MANAGER PROJECT.[employer]ER Work Phone: [facility] 06-26-2024 15:51-0400 Body weight 60.8 kg Emilee Indorf MANAGER PROJECT.[employer] Work Phone: [facility] 06-26-2024 15:51-0400 Diastolic blood pressure 78 mm[Hg] Emilee Indorf MANAGER PROJECT.[employer] Work Phone: [facility] 06-26-2024 15:51-0400 Heart rate 78 /min Emilee Indorf MANAGER PROJECT.[employer] Work Phone: [facility] 06-26-2024 15:51-0400 Respiratory rate 16 /min Emilee Indorf MANAGER PROJECT.[employer] Work Phone: [facility] 06-26-2024 15:51-0400 SaO2% (BldA) [Mass fraction] 94 % Emilee Indorf MANAGER PROJECT.[employer] Work Phone: [facility] 06-26-2024 15:51-0400 Systolic blood pressure 132 mm[Hg] Emilee Indorf MANAGER PROJECT.[employer] Work Phone: [facility] 06-11-2024 12:32-0400 Body mass index (BMI) [Ratio] 20.99 kg/m2 Kelsi Zavala MANAGER PROJECT.[employer] Work Phone: [facility] 06-11-2024 12:32-0400 Body temperature 97.11 [degF] Kelsi Zavala MANAGER PROJECT.[employer] Work Phone: [facility] 06-11-2024 12:32-0400 Body weight 59 kg Kelsi Zavala MANAGER PROJECT.[employer] Work Phone: [facility] 06-11-2024 12:32-0400 Diastolic blood pressure 85 mm[Hg] Kelsi Zavala MANAGER PROJECT.[employer] Work Phone: [facility] 06-11-2024 12:32-0400 Heart rate 70 /min Kelsi Zavala MANAGER PROJECT.[employer] Work Phone: [facility] 06-11-2024 12:32-0400 Respiratory rate 20 /min Kelsi Zavala MANAGER PROJECT.[employer] Work Phone: [facility] 06-11-2024 12:32-0400 SaO2% (BldA) [Mass fraction] 96 % Kelsi Zavala MANAGER PROJECT.[employer] Work Phone: [facility] 06-11-2024 12:32-0400 Systolic blood pressure 176 mm[Hg] Kelsi Zavala MANAGER PROJECT.[employer] Work Phone: [facility] 03-30-2024 14:48-0400 Body height 167.6 cm Paul Bautista MD Work Phone: [facility] 03-30-2024 14:48-0400 Body mass index (BMI) [Ratio] 21.14 kg/m2 Paul Bautista MD Work Phone: [facility] 03-30-2024 14:48-0400 Body weight 59.42 kg Paul Bautista MD Work Phone: [facility] 03-30-2024 14:48-0400 Diastolic blood pressure 68 mm[Hg] Paul Bautista MD Work Phone: [facility] 03-30-2024 14:48-0400 Heart rate 75 /min Paul Bautista MD Work Phone: [facility] 03-30-2024 14:48-0400 SaO2% (BldA) [Mass fraction] 97 % Paul Bautista MD Work Phone: [facility] Comment on above: RA 03-30-2024 14:48-0400 Systolic blood pressure 133 mm[Hg] Paul Bautista MD Work Phone: [facility] 03-29-2024 12:39-0400 Diastolic blood pressure 58 mm[Hg] Susannah Clemente MD Work Phone: [facility] 03-29-2024 12:39-0400 Systolic blood pressure 120 mm[Hg] Susannah Clemente MD Work Phone: [facility] 03-28-2024 16:32-0400 Diastolic blood pressure 91 mm[Hg] Susannah Clemente MD Work Phone: [facility] 03-28-2024 16:32-0400 Systolic blood pressure 176 mm[Hg] Susannah Clemente MD Work Phone: [facility] 03-28-2024 16:07-0400 Body mass index (BMI) [Ratio] 22.03 kg/m2 Susannah Clemente MD Work Phone: [facility] 03-28-2024 16:07-0400 Body temperature 97.7 [degF] Susannah Clemente MD Work Phone: [facility] 03-28-2024 16:07-0400 Body weight 61.92 kg Susannah Clemente MD Work Phone: [facility] 03-28-2024 16:07-0400 Heart rate 60 /min Susannah Clemente MD Work Phone: [facility] 03-28-2024 16:07-0400 SaO2% (BldA) [Mass fraction] 97 % Susannah Clemente MD Work Phone: [facility] 01-26-2024 11:31-0400 Body height 167.6 cm Virgil Gomez MD Work Phone: [facility] 01-26-2024 11:31-0400 Body temperature 97.7 [degF] Virgil Gomez MD Work Phone: [facility] 01-26-2024 11:31-0400 Body weight 62.14 kg Virgil Gomez MD Work Phone: [facility] 01-26-2024 11:31-0400 Diastolic blood pressure 75 mm[Hg] Virgil Gomez MD Work Phone: [facility] 01-26-2024 11:31-0400 Heart rate 64 /min Virgil Gomez MD Work Phone: [facility] 01-26-2024 11:31-0400 SaO2% (BldA) [Mass fraction] 96 % Virgil Gomez MD Work Phone: [facility] 01-26-2024 11:31-0400 Systolic blood pressure 181 mm[Hg] Virgil Gomez MD Work Phone: [facility] 11-06-2023 13:44-0500 Diastolic blood pressure 81 mm[Hg] [facility] 11-06-2023 13:44-0500 Heart rate 63 /min [facility] 11-06-2023 13:44-0500 Systolic blood pressure 178 mm[Hg] [facility] 11-06-2023 11:49-0500 Body height 167.64 cm [facility] 11-06-2023 11:49-0500 Body mass index (BMI) [Ratio] 21.9 kg/m2 [facility] 11-06-2023 11:49-0500 Body temperature 95.6 [degF] [facility] 11-06-2023 11:49-0500 Body weight 61.5 kg [facility] 11-06-2023 11:49-0500 Respiratory rate 16 /min [facility] 11-06-2023 11:49-0500 SaO2% (BldA) [Mass fraction] 98 % [facility] 09-30-2023 11:48-0500 Body height 167.6 cm Paul Bautista MD Work Phone: [facility] 09-30-2023 11:48-0500 Body weight 59.88 kg Paul Bautista MD Work Phone: [facility] 09-30-2023 11:48-0500 Diastolic blood pressure 63 mm[Hg] Paul Bautista MD Work Phone: [facility] 09-30-2023 11:48-0500 Heart rate 70 /min Paul Bautista MD Work Phone: [facility] 09-30-2023 11:48-0500 Respiratory rate 15 /min Paul Bautista MD Work Phone: [facility] 09-30-2023 11:48-0500 SaO2% (BldA) [Mass fraction] 95 % Paul Bautista MD Work Phone: [facility] 09-30-2023 11:48-0500 Systolic blood pressure 155 mm[Hg] Paul Bautista MD Work Phone: [facility] 08-06-2023 11:11-0400 Body height 166.4 cm Migel Garcia PA-C Work Phone: [facility] 08-06-2023 11:11-0400 Body weight 60.83 kg Migel Garcia PA-C Work Phone: [facility] 08-06-2023 11:11-0400 Diastolic blood pressure 67 mm[Hg] Migel Garcia PA-C Work Phone: [facility] 08-06-2023 11:11-0400 Heart rate 69 /min iMgel Garcia PA-C Work Phone: [facility] 08-06-2023 11:11-0400 SaO2% (BldA) [Mass fraction] 95 % Migel Garcia PA-C Work Phone: [facility] 08-06-2023 11:11-0400 Systolic blood pressure 125 mm[Hg] Migel Garcia PA-C Work Phone: [facility] 07-05-2023 13:43-0400 Diastolic blood pressure 60 mm[Hg] Susannah Clemente MD Work Phone: [facility] 07-05-2023 13:43-0400 Systolic blood pressure 138 mm[Hg] Susannah Clemente MD Work Phone: [facility] 07-05-2023 12:58-0400 Body height 168.9 cm Susannah Clemente MD Work Phone: [facility] 07-05-2023 12:58-0400 Body temperature 97.7 [degF] Susannah Clemente MD Work Phone: [facility] 07-05-2023 12:58-0400 Body weight 60.44 kg Susannah Clemente MD Work Phone: [facility] 07-05-2023 12:58-0400 Heart rate 78 /min Susannah Clemente MD Work Phone: [facility] 07-05-2023 12:58-0400 SaO2% (BldA) [Mass fraction] 97 % Susannah Clemente MD Work Phone: [facility] 03-23-2023 16:27-0400 Body height 167.6 cm Susannah Clemente MD Work Phone: [facility] 03-23-2023 16:27-0400 Body temperature 98.2 [degF] Susannah Clemente MD Work Phone: [facility] 03-23-2023 16:27-0400 Body weight 59.42 kg Susannah Clemente MD Work Phone: [facility] 03-23-2023 16:27-0400 Diastolic blood pressure 62 mm[Hg] Susannah Clemente MD Work Phone: [facility] 03-23-2023 16:27-0400 Heart rate 75 /min Susannah Clemente MD Work Phone: [facility] 03-23-2023 16:27-0400 SaO2% (BldA) [Mass fraction] 96 % Susannah Clemente MD Work Phone: [facility] 03-23-2023 16:27-0400 Systolic blood pressure 130 mm[Hg] Susannah Clemente MD Work Phone: [facility] 01-30-2023 09:47-0400 Body temperature 97.59 [degF] Kelsi Zavala MANAGER PROJECT.[employer] Work Phone: [facility] 01-30-2023 09:47-0400 Body weight 60.78 kg Kelsi Zavala MANAGER PROJECT.[employer] Work Phone: [facility] 01-30-2023 09:47-0400 Diastolic blood pressure 80 mm[Hg] Kelsi Zavala MANAGER PROJECT.[employer] Work Phone: [facility] 01-30-2023 09:47-0400 Heart rate 82 /min Kelsi Zavala MANAGER PROJECT.[employer]ER Work Phone: [facility] 01-30-2023 09:47-0400 Respiratory rate 16 /min Kelsi Zavala MANAGER PROJECT.[employer] Work Phone: [facility] 01-30-2023 09:47-0400 SaO2% (BldA) [Mass fraction] 96 % Kelsi Zavala MANAGER PROJECT.[employer]ER Work Phone: [facility] 01-30-2023 09:47-0400 Systolic blood pressure 144 mm[Hg] Kelsi Zavala MANAGER PROJECT.[employer]ER Work Phone: [facility] 11-20-2022 11:00-0500 Body height 167.6 cm Le Reay MANAGER PROJECT.[employer]ER Work Phone: [facility] 11-20-2022 11:00-0500 Body weight 61.92 kg Le Reay MANAGER PROJECT.[employer]SEM[employer]ER Work Phone: [facility] 11-20-2022 11:00-0500 Diastolic blood pressure 68 mm[Hg] Le Reay MANAGER PROJECT.[employer] AS[employer]ER Work Phone: [facility] 11-20-2022 11:00-0500 Heart rate 76 /min Le Reay MANAGER PROJECT.[employer]ER Work Phone: [facility] 11-20-2022 11:00-0500 SaO2% (BldA) [Mass fraction] 95 % Le Reay MANAGER PROJECT.[employer]ER Work Phone: [facility] 11-20-2022 11:00-0500 Systolic blood pressure 137 mm[Hg] Le Reay MANAGER PROJECT.[employer]ER Work Phone: [facility] 10-05-2022 15:00-0500 Body temperature 97.2 [degF] Ramandeep Bogner PA-C Work Phone: [facility] 10-05-2022 15:00-0500 Body weight 60.24 kg Ramandeep Bogner PA-C Work Phone: [facility] 10-05-2022 15:00-0500 Diastolic blood pressure 84 mm[Hg] Ramandeep Bogner PA-C Work Phone: [facility] 10-05-2022 15:00-0500 Heart rate 81 /min Ramandeep Bogner PA-C Work Phone: [facility] 10-05-2022 15:00-0500 Respiratory rate 20 /min Ramandeep Bogner PA-C Work Phone: [facility] 10-05-2022 15:00-0500 SaO2% (BldA) [Mass fraction] 97 % Ramandeep Bogner PA-C Work Phone: [facility] 10-05-2022 15:00-0500 Systolic blood pressure 162 mm[Hg] Ramandeep Nieto PA-C Work Phone: [facility] 10-01-2022 17:18-0500 Diastolic blood pressure 60 mm[Hg] Susannah Clemente MD Work Phone: [facility] 10-01-2022 17:18-0500 Systolic blood pressure 100 mm[Hg] Susannah Clemente MD Work Phone: [facility] 10-01-2022 14:24-0500 Body temperature 98.01 [degF] Susannah Clemente MD Work Phone: [facility] 10-01-2022 14:24-0500 Body weight 60.22 kg Susannah Clemente MD Work Phone: [facility] 10-01-2022 14:24-0500 Heart rate 94 /min Susannah Clemente MD Work Phone: [facility] 10-01-2022 14:24-0500 SaO2% (BldA) [Mass fraction] 96 % Susannah Clemente MD Work Phone: [facility] 09-02-2022 13:33-0500 Body height 168.9 cm Paul Bautista MD Work Phone: [facility] 09-02-2022 13:33-0500 Body weight 60.33 kg Paul Bautista MD Work Phone: [facility] 09-02-2022 13:33-0500 Diastolic blood pressure 75 mm[Hg] Paul Bautista MD Work Phone: [facility] 09-02-2022 13:33-0500 Heart rate 70 /min Paul Bautista MD Work Phone: [facility] 09-02-2022 13:33-0500 Respiratory rate 15 /min Paul Bautista MD Work Phone: [facility] 09-02-2022 13:33-0500 SaO2% (BldA) [Mass fraction] 97 % Paul Bautista MD Work Phone: [facility] 09-02-2022 13:33-0500 Systolic blood pressure 154 mm[Hg] Paul Bautista MD Work Phone: [facility] 07-16-2022 11:54-0400 Diastolic blood pressure 77 mm[Hg] Susannah Clemente MD Work Phone: [facility] 07-16-2022 11:54-0400 Systolic blood pressure 177 mm[Hg] Susannah Clemente MD Work Phone: [facility] 07-16-2022 11:37-0400 Body temperature 98.01 [degF] Susannah Clemente MD Work Phone: [facility] 07-16-2022 11:37-0400 Body weight 62.26 kg Susannah Clemente MD Work Phone: [facility] 07-16-2022 11:37-0400 Heart rate 68 /min Susannah Clemente MD Work Phone: [facility] 07-16-2022 11:37-0400 SaO2% (BldA) [Mass fraction] 97 % Susannah Clemente MD Work Phone: [facility] 05-18-2022 09:46-0400 Body height 167.6 cm Paul Bautista MD Work Phone: [facility] 05-18-2022 09:46-0400 Body weight 62.32 kg Paul Bautista MD Work Phone: [facility] 05-18-2022 09:46-0400 Diastolic blood pressure 89 mm[Hg] Paul Bautista MD Work Phone: [facility] 05-18-2022 09:46-0400 Heart rate 64 /min Paul Bautista MD Work Phone: [facility] 05-18-2022 09:46-0400 SaO2% (BldA) [Mass fraction] 99 % Paul Bautista MD Work Phone: [facility] 05-18-2022 09:46-0400 Systolic blood pressure 187 mm[Hg] Paul Bautista MD Work Phone: [facility] 05-14-2022 10:28-0400 Body height 167.6 cm Michelle Choudhary MD Work Phone: [facility] 05-14-2022 10:28-0400 Body weight 63.41 kg Michelle Choudhary MD Work Phone: [facility] 05-14-2022 10:28-0400 Diastolic blood pressure 81 mm[Hg] Michelle Choudhary MD Work Phone: [facility] 05-14-2022 10:28-0400 Heart rate 70 /min Michelle Choudhary MD Work Phone: [facility] 05-14-2022 10:28-0400 Systolic blood pressure 176 mm[Hg] Michelle Choudhary MD Work Phone: [facility] 04-17-2022 11:00-0400 Body height 166 cm Rosendo Rodgers MD Work Phone: [facility] 04-17-2022 11:00-0400 Body temperature 97.2 [degF] Rosendo Rodgers MD Work Phone: [facility] 04-17-2022 11:00-0400 Body weight 60.78 kg Rosendo Rodgers MD Work Phone: [facility] 04-17-2022 11:00-0400 Diastolic blood pressure 65 mm[Hg] Rosendo Rodgers MD Work Phone: [facility] 04-17-2022 11:00-0400 Heart rate 76 /min Rosendo Rodgers MD Work Phone: [facility] 04-17-2022 11:00-0400 Respiratory rate 20 /min Rosendo Rodgers MD Work Phone: [facility] 04-17-2022 11:00-0400 SaO2% (BldA) [Mass fraction] 98 % Rosendo Rodgers MD Work Phone: [facility] 04-17-2022 11:00-0400 Systolic blood pressure 134 mm[Hg] Rosendo Rodgers MD Work Phone: [facility] 04-14-2022 11:40-0400 Diastolic blood pressure 97 mm[Hg] Susannah Clemente MD Work Phone: [facility] 04-14-2022 11:40-0400 Systolic blood pressure 171 mm[Hg] Susannah Clemente MD Work Phone: [facility] 04-14-2022 11:23-0400 Body height 166.4 cm Susannah Clemente MD Work Phone: [facility] 04-14-2022 11:23-0400 Body temperature 97.81 [degF] Susannah Clemente MD Work Phone: [facility] 04-14-2022 11:23-0400 Body weight 61.24 kg Susannah Clemente MD Work Phone: [facility] 04-14-2022 11:23-0400 Heart rate 80 /min Susannah Clemente MD Work Phone: [facility] 04-14-2022 11:23-0400 SaO2% (BldA) [Mass fraction] 97 % Susannah Clemente MD Work Phone: [facility] Encounters Encounter Date Encounter Type Care Provider Facility Start: 04-04-2025 End: 04-04-2025 Telephone encounter Paul Bautista MD Work Phone: Cardiology Comment on above: Nm Pet Request Start: 04-03-2025 End: 04-03-2025 Patient encounter procedure Paul Bautista MD Work Phone: Cardiology Comment on above: Chronic diastolic (c ongestive) heart failure (HCC) (Primary Dx); Encounter for screening for cardiovascular disorders; Angina pectoris; Stage 3b chronic kidney disease (HCC) Start: 04-03-2025 End: 04-03-2025 ambulatory [facility] Facility:[facility] Start: 04-03-2025 End: 04-03-2025 ambulatory [facility] Facility:[facility] Start: 04-02-2025 End: 04-05-2025 Telephone encounter Susannah Clemente MD Work Phone: [facility] Comment on above: Forms ([facility]) Start: 03-27-2025 End: 03-27-2025 ambulatory SUSANNAH CLEMENTE Facility: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 Start: 02-01-2025 End: 02-05-2025 Follow-up encounter Susannah Clemente MD Work Phone: [facility] Comment on above: Results Start: 01-27-2025 End: 01-29-2025 ambulatory Susannah Clemente MD Work Phone: [facility] Comment on above: Schedule for blood t ests Start: 01-15-2025 End: 01-19-2025 Telephone encounter Susannah Clemente MD Work Phone: [facility] Comment on above: Orders ([facility]) Start: 01-05-2025 End: 01-09-2025 Refill Susannah Clemente MD Work Phone: [facility] Comment on above: Refill Request Start: 11-17-2024 End: 11-17-2024 ambulatory SUSANNAH CLEMENTE Facility:[facility] Start: 11-15-2024 End: 11-16-2024 Telephone encounter Susannah Clemente MD Work Phone: [facility] Start: 10-24-2024 End: 10-24-2024 Telephone encounter Susannah Clemente MD Work Phone: [facility] Comment on above: Orders; Appointment Start: 10-08-2024 End: 10-09-2024 Refill Susannah Clemente MD Work Phone: [facility] Comment on above: Refill Request Start: 09-13-2024 End: 09-13-2024 Orders Only Paul Bautista MD Work Phone: Cardiology Comment on above: Chronic diastolic (c ongestive) heart failure (HCC) (Primary Dx) Start: 08-29-2024 End: 08-30-2024 Refill Susannah Clemente MD Work Phone: [facility] Comment on above: Refill Request Start: 07-27-2024 End: 07-27-2024 ambulatory SUSANNAH CLEMENTE Facility:[facility] Start: 07-26-2024 End: 07-26-2024 ambulatory MICHELLE CHOUDHARY Facility:[facility] Start: 07-26-2024 End: 08-01-2024 Patient encounter procedure Michelle Choudhary MD Work Phone: Dermatology Comment on above: Neoplasm of unspecif ied behavior of bone, soft tissue, and skin (Primary Dx); Telogen effluvium; Seborrheic dermatitis; Hx of nonmelanoma skin cancer; Photoaging of skin; Personal history of malignant neoplasm of breast; Chronic diastolic (congestive) heart failure (HCC) Start: 07-17-2024 End: 07-17-2024 ambulatory SUSANNAH CLEMENTE Facility:[facility] Start: 07-17-2024 End: 07-17-2024 Patient encounter procedure Dominguez Harkins MD Work Phone: [facility] Comment on above: Urgency of urination (Primary Dx) Start: 07-14-2024 End: 07-14-2024 ambulatory SUSANNAH CLEMENTE Facility:[facility] Start: 07-14-2024 End: 07-14-2024 Subsequent hospital visit by physician Xr [facility] Work Phone: Radiology Comment on above: Exertional dyspnea [ R06.09] Start: 07-13-2024 End: 07-13-2024 ambulatory ERWIN ROSALES Facility:[facility] Start: 07-13-2024 End: 07-13-2024 Patient encounter procedure Erwin Rosales MD Work Phone: [facility] Comment on above: 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 4 chronic kidney disease, or chronic kidney disease (HCC) (Primary Dx) Start: 07-11-2024 End: 01-18-2025 ambulatory Susannah Clemente MD Work Phone: [facility] Comment on above: Possible heart issue s? Breathing Problem Start: 07-03-2024 End: 07-03-2024 Telephone encounter Susannah Clemente MD Work Phone: [facility] Comment on above: Patient Question (No thing was available for medicare wellness until February, AVS said to see in 4 months, offered patient to schedule with Ruby, she did not want to, wanted to know if scheduling her for February was okay with you? She asked me to send this to you.) Start: 07-03-2024 End: 07-03-2024 ambulatory SUSANNAH CLEMENTE Facility:[facility] Start: 07-03-2024 End: 07-03-2024 Office outpatient visit 25 minutes Susannah Clemente MD Work Phone: [facility] Comment on above: 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 4 chronic kidney disease, or chronic kidney disease (HCC) (Primary Dx); Exertional dyspnea; Acute cystitis without hematuria Start: 06-26-2024 End: 06-26-2024 Office outpatient visit 15 minutes Emilee Crump APRN.[employer] Work Phone: [facility] Comment on above: Urinary frequency (P rimary Dx) Start: 06-26-2024 End: 06-26-2024 ambulatory Susannah Clemente MD Work Phone: [facility] Comment on above: burning and pressure with urination Start: 06-24-2024 End: 06-24-2024 ambulatory SUSANNAH CLEMENTE Facility:[facility] Start: 06-11-2024 End: 06-11-2024 [facility] SUSANNAH CLEMENTE Facility:[facility] Start: 06-11-2024 End: 06-11-2024 Patient encounter procedure Kelsi Zavala APRN.[employer] Work Phone: [facility] Comment on above: Cellulitis of left a rm (Primary Dx) Start: 05-30-2024 End: 05-30-2024 ambulatory ABENA BUSTILLOS Facility:[facility] Start: 05-16-2024 End: 05-16-2024 ambulatory ABENA WENDI BUSTILLOS Facility:[facility] Start: 05-15-2024 Refill Susannah buchanan MD Work Phone: [facility] Comment on above: Refill Request Start: 05-14-2024 ambulatory Susannah buchanan MD Work Phone: [facility] Comment on above: Ondansetron ODT 4mg Refill Request Start: 05-03-2024 End: 05-03-2024 ambulatory ABENA BUSTILLOS Facility:[facility] Start: 04-10-2024 Telephone encounter Susannah Clemente MD Work Phone: [facility] Start: 04-08-2024 ambulatory Susannah buchanan MD Work Phone: Internal [facility] Comment on above: Blood Pressure numbe rs Start: 03-30-2024 End: 03-30-2024 Patient encounter procedure Paul Bautista MD Work Phone: Cardiology Comment on above: Chronic diastolic (c ongestive) heart failure (HCC) (Primary Dx) Start: 03-28-2024 End: 03-28-2024 Office outpatient visit 25 minutes Susannah Clemente MD Work Phone: Internal [facility] Comment on above: Situational depressi on (Primary Dx); Cerebral microvascular disease; Essential hypertension; Epigastric abdominal tenderness without rebound tenderness; 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 disease, or chronic kidney disease (HCC); Collagenous colitis; 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) Start: 03-13-2024 Refill Susannah buchanan MD Work Phone: Internal [facility] Comment on above: Refill Request Start: 01-26-2024 End: 01-26-2024 Patient encounter procedure Virgil Gomez MD Work Phone: Gastroenterology Comment on above: Pancreatic cyst (Monik cristina Dx); Collagenous colitis Start: 01-17-2024 Refill Paul dawson MD Work Phone: Cardiology Comment on above: Rx Refills Start: 01-10-2024 Documentation procedure Mammog yang Coordinator [facility] Start: 01-10-2024 Letter encounter Mammography Coordinator [facility] Department Start: 01-07-2024 End: 01-07-2024 Patient encounter procedure Alicia Hylton APRN.CNP Work Phone: [facility] Comment on above: Abnormal mammogram ( Primary Dx); Fibrocystic breast changes of both breasts; Dense breast; Personal history of breast cancer Start: 01-07-2024 End: 01-07-2024 Subsequent hospital visit by physician [facility] Work Phone: Mammography Comment on above: Encounter for screen ing mammogram for breast cancer [Z12.31] Start: 01-03-2024 ambulatory Susannah buchanan MD Work Phone: [facility] Start: 01-03-2024 Patient encounter procedure Susannah Clemente MD Work Phone: [facility] Comment on above: Consult to [facility] Start: 12-31-2023 Orders Only Alicia nair MANAGER PROJECT.[employer] II ASSEMBLER Work Phone: [facility] Comment on above: Encounter for screen ing mammogram for breast cancer (Primary Dx) Start: 12-31-2023 Refill Susannah buchanan MD Work Phone: [facility] Comment on above: Refill Request Start: 12-20-2023 ambulatory Susannah buchanan MD Work Phone: [facility] Comment on above: Mammogram schedule Start: 11-06-2023 End: 11-06-2023 Emergency department patient visit [facility] Work Phone: Start: 10-18-2023 End: 09-06-2024 Telephone encounter Virgil Gomez MD Work Phone: Gastroenterology Start: 10-07-2023 Refill Susannah buchanan MD Work Phone: [facility] Comment on above: Refill Request (Clon idine and Labetalol) Start: 09-30-2023 End: 09-30-2023 Patient encounter procedure Paul Bautista MD Work Phone: Cardiology Comment on above: Chronic diastolic (c ongestive) heart failure (HCC) (Primary Dx); Stage 3a chronic kidney disease (HCC) Start: 09-20-2023 ambulatory Migel Ayers ms PA-C Work Phone: [facility] [place] Comment on above: Physical therapy Start: 09-10-2023 End: 09-10-2023 ambulatory Liam Bull PT Work Phone: [facility] Physical Therapy Comment on above: Chronic thoracic [place] pain, unspecified back pain laterality (Primary Dx); Degenerative scoliosis in adult patient; 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 Start: 09-08-2023 End: 09-08-2023 ambulatory Shalini Lopez [facility] Work Phone: [facility] Comment on above: Chronic diastolic (c ongestive) heart failure (HCC) (Primary Dx) Start: 09-08-2023 End: 09-08-2023 Telemedicine consultation with patient Shalini Lopez [facility] Work Phone: [facility] Start: 09-02-2023 ambulatory Nadja Walterorion Garza Conject Comment on above: Population Health Na vigation Outreach (SGLT2) Start: 08-30-2023 End: 08-30-2023 ambulatory Liam Bull PT Work Phone: [facility] Physical Therapy Comment on above: Chronic thoracic [place] k pain, unspecified back pain laterality (Primary Dx); 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; Degenerative scoliosis in adult patient Start: 08-21-2023 End: 08-21-2023 ambulatory Immunization Clinic Nurse Fam Work Phone: [facility] [place] Comment on above: Arrived Start: 08-15-2023 Refill Michelle Choudhary MD Work Phone: Dermatology Comment on above: Refill Request Start: 08-06-2023 End: 08-06-2023 Patient encounter procedure Migel Garcia PA-C Work Phone: [facility] [place] Comment on above: 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 (Primary Dx); Degenerative scoliosis in adult patient; Chronic thoracic back pain, unspecified back pain laterality Start: 08-04-2023 End: 08-04-2023 Patient encounter procedure Bone [facility] Start: 08-04-2023 End: 08-04-2023 Subsequent hospital visit by physician Bone Density Main A21 2 Radiology Comment on above: Asymptomatic postmen opausal state [Z78.0] Start: 07-26-2023 End: 07-26-2023 Patient encounter procedure Cristina FINE Work Phone: Audiology Comment on above: Sensorineural hearin g loss, bilateral (Primary Dx) Start: 07-08-2023 End: 07-08-2023 Patient encounter procedure Mfi Wstr Work Phone: [facility] Start: 07-08-2023 End: 07-08-2023 Subsequent hospital visit by physician [facility] Imaging Wstr Work Phone: Nuclear Medicine Comment on above: Medicare annual well ness visit, subsequent [Z00.00] Start: 07-05-2023 Telephone encounter Susannah Clemente MD Work Phone: [facility] Start: 07-05-2023 End: 07-05-2023 Patient encounter procedure Susannah Clemente MD Work Phone: [facility] Comment on above: Medicare annual well ness visit, subsequent (Primary Dx); Asymptomatic postmenopausal state; Thoracogenic scoliosis, unspecified spinal region; Chronic thoracic back pain, unspecified back pain laterality; Decreased hearing of both ears; Anemia due to stage 3b chronic kidney disease (HCC); Epigastric pain; Hypothyroidism, unspecified type Start: 04-08-2023 End: 04-08-2023 ambulatory Kelsi Otto [facility] Physical Therapy Comment on above: Acute right-sided th oracic back pain (Primary Dx) Start: 04-02-2023 End: 04-02-2023 ambulatory Arrhythmia Monitoring Lab Work Phone: Cardiology Comment on above: Event (ZIO PATCH) Start: 04-01-2023 End: 04-01-2023 Subsequent hospital visit by physician [facility] Work Phone: Radiology Comment on above: Epigastric abdominal tenderness without rebound tenderness [R10.816] Start: 03-23-2023 End: 03-23-2023 Office outpatient visit 15 minutes Susannah Clemente MD Work Phone: [facility] Comment on above: Rib pain on right si de (Primary Dx); Epigastric abdominal tenderness without rebound tenderness; Thoracogenic scoliosis, unspecified spinal region Start: 03-08-2023 ambulatory Susannah buchanan MD Work Phone: [facility] Comment on above: Back Pain ([place]) Start: 03-08-2023 End: 03-08-2023 Subsequent hospital visit by physician [facility] Work Phone: Radiology Comment on above: Acute right-sided th oracic back pain [M54.6] Start: 02-20-2023 ambulatory Susannah buchanan MD Work Phone: [facility] [place] Comment on above: medical massages Start: 01-30-2023 End: 01-30-2023 Patient encounter procedure Kelsi Zavala MANAGER PROJECT.[employer] II ASSEMBLER Work Phone: [facility] Comment on above: Difficulty swallowin g pills (Primary Dx); Pharyngitis, unspecified etiology Start: 01-15-2023 End: 01-15-2023 Subsequent hospital visit by physician [facility] [place] [facility] Work Phone: Radiology Comment on above: Exertional dyspnea [ R06.09] Start: 01-06-2023 Documentation procedure Mammog yang Coordinator [facility] Start: 01-06-2023 Letter encounter Mammography Coordinator [facility] Department Start: 01-05-2023 End: 01-05-2023 Patient encounter procedure Alicia Hylton APRN.[employer] II ASSEMBLER Work Phone: [facility] Comment on above: Fibrocystic breast c hanges of both breasts (Primary Dx); Dense breast; Personal history of breast cancer; Encounter for screening mammogram for breast cancer Start: 01-05-2023 End: 01-05-2023 Subsequent hospital visit by physician [facility] Imaging [facility]o [facility] Work Phone: Mammography Comment on above: Encounter for screen ing mammogram for breast cancer [Z12.31] Start: 11-24-2022 End: 11-24-2022 Patient encounter procedure Erwin Maria MD Work Phone: Orthopaedics Comment on above: Trigger thumb of lef t hand (Primary Dx) Start: 11-20-2022 End: 11-20-2022 Patient encounter procedure Le Orourke MANAGER PROJECT.[employer] II ASSEMBLER Work Phone: Cardiology Comment on above: Chronic heart failur e with preserved ejection fraction (HCC) (Primary Dx) Start: 10-29-2022 Telephone encounter Susannah Clemente MD Work Phone: Internal [facility] Comment on above: Results Start: 10-08-2022 Telephone encounter Sandhya Martinez APRLIZZY Work Phone: [facility] Comment on above: Results Start: 10-08-2022 End: 10-08-2022 Subsequent hospital visit by physician [facility] Work Phone: Radiology Comment on above: Urinary retention [R 33.9] Start: 10-05-2022 End: 10-05-2022 Office outpatient visit 15 minutes Ramandeep Nieto PA-C Work Phone: [facility] Comment on above: Pain with urination (Primary Dx) Start: 10-01-2022 End: 10-01-2022 Office outpatient visit 25 minutes Susannah Clemente MD Work Phone: Internal [facility] Comment on above: Stage 3 chronic kidn ey disease, unspecified whether stage 3a or 3b CKD (HCC) (Primary Dx); Hypothyroidism, unspecified type; Essential hypertension; 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 disease, or chronic kidney disease (HCC); Urinary retention; Anemia due to stage 3b chronic kidney disease (HCC) Start: 10-01-2022 ambulatory Susannah buchanan MD Work Phone: Internal [facility] Comment on above: Anemia Start: 10-01-2022 E-mail encounter fro m caregiver Susannah Clemente MD Work Phone: [facility] Start: 09-14-2022 End: 09-14-2022 ambulatory Rosendo Rodgers MD Work Phone: Hematology/Oncology Comment on above: Anemia due to stage 3b chronic kidney disease (HCC) (Primary Dx) Start: 09-14-2022 End: 09-14-2022 Telemedicine consultation with patient Rosendo Rodgers MD Work Phone: [facility] Start: 09-09-2022 Telephone encounter Rosendo watkisn MD Work Phone: Hematology/Oncology Comment on above: Lab Orders; Care Branch Services Manager rdinator - Other Start: 09-02-2022 End: 09-02-2022 Patient encounter procedure Paul Bautista MD Work Phone: Cardiology Comment on above: Chronic heart failur e with preserved ejection fraction (HFpEF) (HCC) (Primary Dx); Essential hypertension Start: 08-08-2022 End: 08-08-2022 ambulatory Immunization Clinic Nurse Fam Work Phone: Family [facility] Comment on above: Arrived Start: 08-06-2022 Telephone encounter Tara rosales MD Work Phone: Allergy Comment on above: Refill Request Start: 07-22-2022 Refill Michelle Choudhary MD Work Phone: Dermatology Start: 07-16-2022 End: 07-16-2022 Office outpatient visit 15 minutes Susannah Clemente MD Work Phone: [facility] [place] Comment on above: Encounter for immuni zation (Primary Dx); 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 disease, or chronic kidney disease (HCC) Start: 06-01-2022 ambulatory Dennys Guzman MD Work Phone: [facility] [place] Start: 06-01-2022 Patient encounter procedure Dennys Guzman MD Work Phone: [facility] Start: 2022 ambulatory Paul dawson MD Work Phone: Cardiovascular Medicine Comment on above: Laboratory Start: 05-18-2022 End: 05-18-2022 Patient encounter procedure Paul Bautista MD Work Phone: Cardiovascular Medicine Comment on above: Chronic heart failur e with preserved ejection fraction (HFpEF) (HCC) (Primary Dx); 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 disease, or chronic kidney disease (HCC); Essential hypertension Start: 05-14-2022 End: 05-14-2022 Patient encounter procedure Michelle Choudhary MD Work Phone: Dermatology Comment on above: Telogen effluvium (P rimary Dx); Seborrheic dermatitis; Encounter for medication monitoring; Verruca vulgaris; Hypothyroidism, unspecified type Start: 04-17-2022 End: 04-17-2022 ambulatory Rosendo Rodgers MD Work Phone: Hematology/Oncology Comment on above: Anemia due to stage 3b chronic kidney disease (HCC) (Primary Dx); Anemia, unspecified type Start: 04-17-2022 End: 04-17-2022 Patient encounter procedure Rosendo Rodgers MD Work Phone: [facility] Start: 04-14-2022 End: 04-14-2022 Patient encounter procedure Susannah Clemente MD Work Phone: Internal [facility] [place] Comment on above: Anemia, unspecified type (Primary Dx); 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 disease, or chronic kidney disease (HCC); Hypothyroidism, unspecified type Start: 03-24-2022 End: 03-24-2022 Patient encounter procedure Erwin Maria MD Work Phone: Orthopaedics Comment on above: Primary osteoarthrit is of first carpometacarpal joint of left hand (Primary Dx) Start: 02-19-2022 Telephone encounter Susannah Clemente MD Work Phone: Family [facility] Comment on above: Results Start: 02-17-2022 End: 02-17-2022 Nursing evaluation of patient and report Leigh Abreu RN Work Phone: Orthopaedics Comment on above: Primary osteoarthrit is of first carpometacarpal joint of left hand (Primary Dx) Start: 02-10-2022 End: 02-10-2022 ambulatory Kelsi Rosa OT/L Work Phone: [facility] Occupational Therapy Comment on above: Thumb pain, left (Pr imary Dx); Primary osteoarthritis of first carpometacarpal joint of left hand Start: 02-03-2022 End: 02-03-2022 ambulatory Laverne Helms OT/L Work Phone: [facility] Occupational Therapy Comment on above: Thumb pain, left (Pr imary Dx); Primary osteoarthritis of first carpometacarpal joint of left hand Start: 01-27-2022 End: 01-27-2022 ambulatory Laverne Helms OT/L Work Phone: [facility] Occupational Therapy Comment on above: Thumb pain, left (Pr imary Dx); NO SHOW Start: 01-20-2022 End: 01-20-2022 ambulatory Kelsi Moe OT/L Work Phone: [facility] Occupational Therapy Comment on above: Thumb pain, left (Pr imary Dx); Primary osteoarthritis of first carpometacarpal joint of left hand Start: 01-20-2022 End: 01-20-2022 Nursing evaluation of patient and report Leigh Abreu RN Work Phone: Orthopaedics Comment on above: Primary osteoarthrit is of first carpometacarpal joint of left hand (Primary Dx) Start: 08-18-2021 End: 08-18-2021 Subsequent hospital visit by physician [facility] Imaging [facility] Work Phone: Mammography Comment on above: Encounter for screen ing mammogram for malignant neoplasm of breast [Z12.31] Start: 12-24-2020 End: 12-24-2020 Subsequent hospital visit by physician [facility] Work Phone: Radiology Comment on above: Left wrist pain [M25 .532] Start: 07-30-2020 End: 07-30-2020 Subsequent hospital visit by physician Clinic Imaging Mammo [facility] Work Phone: Mammography Comment on above: Fibrocystic breast c hanges of both breasts [N60.11, N60.12] Start: 08-26-2018 Ambulatory SCOTTY BERRY Facility :[facility] Start: 02-07-2018 End: 02-07-2018 Ambulatory SCOTTY BERRY [facility] Start: 08-26-2017 End: 08-26-2017 Ambulatory SCOTTY BERRY [facility] Start: 10-05-2011 End: 09-19-2020 Patient encounter status Susannah Clemente MD Work Phone: [facility] Procedures Date Procedure Procedure Detail Performing Clinician Start: 04-03-2025 Echo tthrc r-t 2d w/wom-mode compl spec&colr d Paul Bautista MD Work Phone: Start: 07-26-2024 Level iv surg pathol ogy gross&microscopic exam Joanie House MD Work Phone: Start: 07-17-2024 Urnls dip stick/tabl et rgnt auto w/o microscopy Johan Brantley MANAGER PROJECT.[employer] II ASSEMBLER Work Phone: Start: 07-14-2024 Radiologic exam ches t 2 views Susannah Clemente MD Work Phone: Start: 07-03-2024 Ecg routine ecg w/le ast 12 lds i&r only [facility] Provider Start: 06-26-2024 Urnls dip stick/tabl et rgnt auto w/o microscopy Emilee Crump MANAGER PROJECT.[employer] II ASSEMBLER Work Phone: Start: 03-28-2024 Adult depression scr eening assessment Susannah Clemente MD Work Phone: Start: 01-07-2024 Screening digital br east tomosynthesis bi Alicia Hylton MANAGER PROJECT.[employer] II ASSEMBLER Work Phone: Start: 11-06-2023 SARS-CoV-2, Influenz a & RSV (PCR) Start: 11-06-2023 Plain chest X-ray Start: 08-21-2023 INFLUENZA VACCINE, A GE 6 MO - 64 YR, QUADRIVALENT (AFLURIA, FLULAVAL, FLUZONE) Fadi Martinez MD Work Phone: Start: 07-26-2023 HEARING TEST/AUDIOGRAM Cristina FINE Work Phone: Start: 07-08-2023 Hepatobil syst imag inc gb w/pharma intervenj Susannah Clemente MD Work Phone: Start: 04-01-2023 Us abdominal real ti me w/image limited Susannah Clemente MD Work Phone: Start: 03-08-2023 Radex ribs uni w/pos teroant ch minimum 3 views Susannah Clemente MD Work Phone: Start: 01-15-2023 Radiologic exam ches t 2 views Susannah Clemente MD Work Phone: Start: 01-05-2023 NICOLE SCREENING W MICHELLE Joan izabel Hylton MANAGER PROJECT.[employer] II ASSEMBLER Work Phone: Start: 11-24-2022 Injection 1 tendon sheath/ligament aponeurosis Erwin Maria MD Work Phone: Start: 10-08-2022 Us retroperitoneal r eal time w/image complete Susannah Clemente MD Work Phone: Start: 10-05-2022 Urnls dip stick/tabl et rgnt auto w/o microscopy Sangita Maddox PA-C Work Phone: Start: 08-08-2022 INFLUENZA VACCINE QUADRIVALENT 6 MO - 64 YRS IM Ameya Us DO Work Phone: Start: 07-16-2022 PFIZER-BIONTLuxola COVI D-19 BIVALENT BOOSTER VACCINE, AGE 12+ YR Susannah Clemente MD Work Phone: Start: 08-18-2021 NICOLE SCREENING W MICHELLENarciso Mtz PA-C Work Phone: Start: 12-24-2020 Radex wrist complete minimum 3 views Sangita Maddox PA-C Work Phone: Start: 10-17-2019 12 lead ECG Plan of Treatment Date Care Activity Detail Author Start: 12-27-2033 Urine microalbumin profile DTaP,Tdap,Td Vaccine (3 - Td or Tdap) [facility] Start: 02-02-2028 Diabetes Screening Diabetes Screening [facility] Start: 06-24-2027 Diabetes Screening Diabetes Screening [facility] Start: 11-02-2026 Diabetes Screening Diabetes Screening [facility] Start: 04-26-2026 DIABETES SCREEN DIABETES SCREEN [facility] Start: 04-26-2026 Diabetes Screening Diabetes Screening [facility] Start: 03-27-2026 Medicare Annual Wellness Visit Medicare Annual Wellness Visit [facility] Start: 01-08-2026 DIABETES SCREEN DIABETES SCREEN [facility] Start: 10-04-2025 End: 10-04-2025 Patient encounter procedure 10/04/2025 11:30 AM EST Office Visit Cardiology [address] [place] [address] Paul Bautista MD [address] [place] [address] DX: Chronic diastolic HF Cardiology Comment on above: DX: Chronic diastolic HF Start: 10-02-2025 End: 10-02-2025 Patient encounter procedure 10/02/2025 12:50 PM EST Office Visit [facility] [place] [address] [place], [place] [id number] Susannah Clemente MD [address] [place], [place] [id number] Return in about 6 months (around 09/26/2025). [facility] [place] Comment on above: Return in about 6 months (around 025). Start: 09-11-2025 DIABETES SCREEN DIABETES SCREEN [facility] Start: 07-19-2025 End: 07-19-2025 Patient encounter procedure 07/19/2025 11:30 AM EDT Office Visit Gastroenterology [address] [address] Virgil Gomez MD [address] [place] [address] Epigastric pain [R10.13] Gastroenterology Comment on above: Epigastric pain [R10.13] Start: 06-24-2025 Hepatitis B surface antibody level LDL Cholesterol [facility] Start: 06-22-2025 End: 06-22-2025 Patient encounter procedure [facility] Comment on above: Annual breast exam Start: 06-07-2025 End: 06-07-2025 Patient encounter procedure 06/07/2025 11:00 AM EDT Office Visit Audiology [address] [address] Isa Hartman, AUD [address] [place] [address] 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] Audiology Comment on above: 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] Start: 06-01-2025 DIABETES SCREEN DIABETES SCREEN [facility] Start: 2025 End: 2025 Patient encounter procedure Radiology Comment on above: increasing sharp pain right hand Start: 05-21-2025 DIABETES SCREEN DIABETES SCREEN [facility] Start: 04-24-2025 End: 04-24-2025 Patient encounter procedure 04/24/2025 11:00 AM EDT Appointment Radiology [address] [place], [place] [id number] Epigastric pain [R10.13] Radiology Comment on above: Epigastric pain [R10.13] Start: 04-13-2025 End: 04-13-2025 Patient encounter procedure 04/13/2025 4:00 PM EDT Office Visit Gastroenterology [address] [address] Virgil Gomez MD [address] [place] [address] Epigastric pain [R10.13] Gastroenterology Comment on above: Epigastric pain [R10.13] Start: 04-07-2025 End: 04-07-2025 Patient encounter procedure 04/07/2025 11:00 AM EDT Office Visit Internal Medicine [place] [address] [place], [place] [id number] Susannah Clemente MD [address] [place], [place] [id number] medicare wellness [facility] [place] Comment on above: medicare wellness Start: 04-03-2025 End: 07-03-2025 Basic metabolic 2000 panel - Serum or Plasma BASIC METABOLIC PANEL Lab Routine Chronic diastolic (congestive) heart failure (HCC) Expected: 04/03/2025, Expires: 07/03/2025 [facility] Comment on above: Expected: 04/03/2025, Expires: 5 Start: 04-03-2025 End: 07-03-2025 Natriuretic peptide.B prohormone N-Terminal [Mass/volume] in Serum or Plasma NT PRO BNP Lab Routine Chronic diastolic (congestive) heart failure (HCC) Expected: 04/03/2025, Expires: 07/03/2025 [facility] Work Phone: Comment on above: Expected: 04/03/2025, Expires: 5 Start: 04-03-2025 End: 05-03-2026 PET+CT Heart WO contrast NM PET/CT CARDIAC PERF REST/STRESS Radiology Routine Encounter for screening for cardiovascular disorders Expected: 04/03/2025, Expires: 05/03/2026 [facility] Comment on above: Expected: 04/03/2025, Expires: 6 Start: 04-03-2025 End: 04-03-2025 Patient encounter procedure Cardiology Comment on above: Heart Failure Start: 03-30-2025 End: 03-30-2025 Echocardiography ECHO Cardiology Routine Chronic diastolic (congestive) heart failure (HCC) Expected: 03/30/2025, Expires: 03/30/2025 [facility] Work Phone: Comment on above: Expected: 03/30/2025, Expires: 5 Start: 03-28-2025 Anxiety Screening Anxiety Screening [facility] Start: 03-28-2025 Depression Screening Depression Screening [facility] Start: 03-27-2025 End: 03-27-2025 Patient encounter procedure 03/27/2025 3:50 PM EDT Office Visit Internal Medicine [place] [address] [place] [address] Susannah Clemente MD [address] [place] [address] MEDICARE WELLNESS [facility] [place] Comment on above: MEDICARE WELLNESS Start: 03-27-2025 End: 06-26-2025 C reactive protein [Mass/volume] in Serum or Plasma by High sensitivity method HIGH SENSITIVITY C-REACTIVE PROTEIN Lab Routine 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 [facility] Comment on above: Return in about 4 months (around 11/02/19) for Medicare Wellness. Start: 01-16-2025 End: 01-16-2025 Patient encounter procedure 01/16/2025 9:50 AM EDT Office Visit [facility] [address] [place] [address] Susannah Clemente MD [address] [place] [address] medicare wellness [facility] Comment on above: medicare wellness Start: 11-15-2024 End: 02-14-2025 CBC W Auto Differential panel - Blood COMPLETE BLOOD COUNT AND DIFFERENTIAL Lab Routine 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) Expected: 11/15/2024, Expires: 02/14/2025 [facility] Work Phone: Comment on above: Expected: 11/15/2024, Expires: Start: 11-09-2024 End: 11-09-2024 Patient encounter procedure 11/09/2024 11:10 AM EST Office Visit [facility] [address] [place], [place] [id number] Susannah Clemente MD [address] [place], [place] [address] Return in about 4 months (around 11/02/2024) for Medicare Wellness. [facility] Comment on above: Return in about 4 months (around 11/02/19) for Medicare Wellness. Start: 10-18-2024 Advance Directive Discussion Advance Directive Discussion [facility] Start: 07-27-2024 End: 07-27-2024 Patient encounter procedure 07/27/2024 10:30 AM EDT Office Visit Cardiology [address] [address] Exertional dyspnea [R06.09] Cardiology Comment on above: Exertional dyspnea [R06.09] Start: 07-26-2024 End: 07-26-2024 Patient encounter procedure 07/26/2024 1:50 PM EDT Office Visit Dermatology [address] [address] Michelle Choudhary MD [address] [place] [address] follow up Dermatology Comment on above: follow up Start: 07-14-2024 End: 07-14-2024 Patient encounter procedure 07/14/2024 9:30 AM EDT Appointment Radiology [address] [place] [address] XR CHEST 2V FRONTAL/LAT Radiology Comment on above: XR CHEST 2V FRONTAL/LAT Start: 07-12-2024 End: 07-12-2024 Patient encounter procedure 07/12/2024 9:10 AM EDT Office Visit [facility] [address] [place] [address] Beau Garcia MD [address] [place] [address] SOB twice [facility] Comment on above: SOB twice Start: 07-10-2024 End: 07-10-2024 Patient encounter procedure 07/10/2024 11:00 AM EDT Office Visit [facility] [address] [place] [address] Susannah Clemente MD [address] [place] [address] f/u [facility] Comment on above: f/u Start: 07-03-2024 End: 07-03-2024 Patient encounter procedure 07/03/2024 10:20 AM EDT Office Visit [facility] [address] [place] [address] Susannah Clemente MD [address] [place] [address] f/u [facility] Comment on above: f/u Start: 06-28-2024 End: 09-27-2024 Basic metabolic 2000 panel - Serum or Plasma BASIC METABOLIC PANEL Lab Routine Essential hypertension 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) Expected: 06/28/2024, Expires: 09/27/2024 [facility] Comment on above: Expected: 06/28/2024, Expires: Start: 06-28-2024 End: 09-27-2024 Lipid 1996 panel - Serum or Plasma LIPID PANEL BASIC Lab Routine Cerebral microvascular disease Expected: 06/28/2024, Expires: 09/27/2024 [facility] Work Phone: Comment on above: Expected: 06/28/2024, Expires: Start: 06-26-2024 End: 09-25-2024 Bacteria identified in Urine by Culture [facility] Work Phone: Comment on above: Expected: 06/26/2024, Expires: Ordered: 06/26/2024 Start: 06-18-2024 Covid-19 Vaccine ( season) Covid-19 Vaccine () [facility] Start: 06-18-2024 Covid-19 Vaccine ( season) Covid-19 Vaccine () [facility] Start: 06-18-2024 Influenza vaccination Influenza Vaccine (#1) [facility] Start: 04-12-2024 Hepatitis B surface antibody level LDL CHOLESTEROL [facility] Start: 03-31-2024 Orders Only 03/31/2024 Orders Only Cardiology [address] [place] [id number] Paul Bautista MD [address] [place] [address] Cardiology Start: 03-30-2024 End: 03-30-2024 Patient encounter procedure 03/30/2024 2:45 PM EDT Office Visit Cardiology [address] [place] [address] Paul Bautista MD [address] [place], [place] [id number] Main, Nurse Card [facility] [address] [place] [address] Dx: Chronic diastolic (congestive) heart failure (HCC) [I50.32 (ICD-10-CM)] Cardiology Comment on above: Dx: Chronic diastolic (congestive) heart failure (HCC) [I50.32 (ICD-10-CM)] Start: 03-28-2024 End: 03-28-2024 Patient encounter procedure 03/28/2024 3:50 PM EDT Office Visit [facility] [address] [place], [place] [address] Susannah Clemente MD [address] [place], [place] [id number] Return in about 4 months (around 03/16/2024). [facility] Comment on above: Return in about 4 months (around 03/16/20). Start: 03-19-2024 DIABETES SCREEN DIABETES SCREEN [facility] Start: 01-15-2024 Covid-19 Vaccine () Covid-19 Vaccine () [facility] Start: 11-06-2023 [facility] Start: 11-06-2023 End: 11-06-2023 [facility] Start: 10-18-2023 Behavioral Health Screening Behavioral Health Screening [facility] Start: 09-30-2023 End: 12-30-2023 Basic metabolic 2000 panel - Serum or Plasma BASIC METABOLIC PNL Lab Routine Chronic diastolic (congestive) heart failure (HCC) Expected: 09/30/2023, Expires: 12/30/2023 [facility] Work Phone: Comment on above: Expected: 09/30/2023, Expires: 4 Start: 09-30-2023 End: 12-30-2023 Natriuretic peptide.B prohormone N-Terminal [Mass/volume] in Serum or Plasma NT PRO BNP Lab Routine Chronic diastolic (congestive) heart failure (HCC) Expected: 09/30/2023, Expires: 12/30/2023 [facility] Work Phone: Comment on above: Expected: 09/30/2023, Expires: 4 Start: 07-05-2023 End: 09-04-2023 Thyrotropin [Units/volume] in Serum or Plasma TSH BLD Lab Routine Hypothyroidism, unspecified type Expected: 07/05/2023, Expires: 09/04/2023 [facility] Work Phone: Comment on above: Expected: 07/05/2023, Expires: 3 Start: 06-18-2023 Covid-19 Vaccine () Covid-19 Vaccine () [facility] Start: 06-18-2023 Influenza vaccination [facility] Start: 04-02-2023 End: 11-20-2023 Echocardiography ECHO Cardiology Routine Chronic heart failure with preserved ejection fraction (HCC) Expected: 04/02/2023, Expires: 11/20/2023 [facility] Work Phone: Comment on above: Expected: 04/02/2023, Expires: 4 Start: 01-12-2023 End: 03-14-2023 Basic metabolic 2000 panel - Serum or Plasma BASIC METABOLIC PNL Lab Routine Chronic heart failure with preserved ejection fraction (HCC) Expected: 01/12/2023, Expires: 03/14/2023 [facility] Work Phone: Comment on above: Expected: 01/12/2023, Expires: 3 Start: 01-12-2023 End: 03-14-2023 Natriuretic peptide.B prohormone N-Terminal [Mass/volume] in Serum or Plasma NT PRO BNP Lab STAT Chronic heart failure with preserved ejection fraction (HCC) Expected: 01/12/2023, Expires: 03/14/2023 [facility] Work Phone: Comment on above: Expected: 01/12/2023, Expires: 3 Start: 12-30-2022 End: 03-01-2023 Basic metabolic 2000 panel - Serum or Plasma BASIC METABOLIC PNL Lab Routine Stage 3 chronic kidney disease, unspecified whether stage 3a or 3b CKD (HCC) Expected: 12/30/2022, Expires: 03/01/2023 [facility] Work Phone: Comment on above: Expected: 12/30/2022, Expires: 3 Start: 12-08-2022 Hepatitis B surface antibody level LDL CHOLESTEROL [facility] Start: 11-15-2022 COVID-19 VACCINE (5 - Moderna series) COVID-19 VACCINE (5 - Moderna series) [facility] Start: 10-18-2022 ADVANCE DIRECTIVE DISCUSSION ADVANCE DIRECTIVE DISCUSSION [facility] Start: 10-18-2022 DEPRESSION ASSESSMENT DEPRESSION ASSESSMENT [facility] Start: 09-11-2022 End: 11-11-2022 Ferritin [Mass/volume] in Serum or Plasma [facility] Work Phone: Comment on above: Expected: 09/11/2022, Expires: 3 Start: 09-11-2022 End: 11-11-2022 Iron and Iron binding capacity panel - Serum or Plasma [facility] Work Phone: Comment on above: Expected: 09/11/2022, Expires: 3 Start: 09-02-2022 End: 11-02-2022 Basic metabolic 2000 panel - Serum or Plasma BASIC METABOLIC PNL Lab Routine Chronic heart failure with preserved ejection fraction (HFpEF) (HCC) Expected: 09/02/2022, Expires: 11/02/2022 [facility] Work Phone: Comment on above: Expected: 09/02/2022, Expires: 3 Start: 09-02-2022 End: 11-02-2022 Natriuretic peptide.B prohormone N-Terminal [Mass/volume] in Serum or Plasma NT PRO BNP Lab Routine Chronic heart failure with preserved ejection fraction (HFpEF) (HCC) Expected: 09/02/2022, Expires: 11/02/2022 [facility] Work Phone: Comment on above: Expected: 09/02/2022, Expires: 3 Start: 08-15-2022 End: 10-15-2022 Basic metabolic 2000 panel - Serum or Plasma BASIC METABOLIC PNL Lab Routine 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 disease, or chronic kidney disease (HCC) Expected: 08/15/2022, Expires: 10/15/2022 [facility] Work Phone: Comment on above: Expected: 08/15/2022, Expires: 2 Start: 08-15-2022 Urine microalbumin profile [facility] Start: 06-18-2022 Influenza vaccination INFLUENZA (#1) [facility] Start: 06-14-2022 End: 08-14-2022 Thyrotropin [Units/volume] in Serum or Plasma TSH BLD Lab Routine Hypothyroidism, unspecified type Expected: 06/14/2022, Expires: 08/14/2022 [facility] Work Phone: Comment on above: Expected: 06/14/2022, Expires: 2 Start: 2022 End: 07-29-2022 Basic metabolic 2000 panel - Serum or Plasma BASIC METABOLIC PNL Lab Routine Chronic heart failure with preserved ejection fraction (HFpEF) (HCC) Expected: 2022, Expires: 07/29/2022 [facility] Work Phone: Comment on above: Expected: 2022, Expires: 2 Start: 05-18-2022 End: 07-18-2022 Basic metabolic 2000 panel - Serum or Plasma BASIC METABOLIC PNL Lab Routine 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 disease, or chronic kidney disease (HCC) Chronic heart failure with preserved ejection fraction (HFpEF) (HCC) Expected: 05/18/2022, Expires: 07/18/2022 [facility] Work Phone: Comment on above: Expected: 05/18/2022, Expires: 2 Start: 05-18-2022 End: 07-18-2022 HIGH SENSITIVITY TROPONIN T HIGH SENSITIVITY TROPONIN T Lab Routine Chronic heart failure with preserved ejection fraction (HFpEF) (HCC) Expected: 05/18/2022, Expires: 07/18/2022 [facility] Work Phone: Comment on above: Expected: 05/18/2022, Expires: 2 Start: 05-18-2022 End: 07-18-2022 Natriuretic peptide.B prohormone N-Terminal [Mass/volume] in Serum or Plasma NT PRO BNP Lab Routine 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 disease, or chronic kidney disease (HCC) Chronic heart failure with preserved ejection fraction (HFpEF) (HCC) Expected: 05/18/2022, Expires: 07/18/2022 [facility] Work Phone: Comment on above: Expected: 05/18/2022, Expires: 2 Start: 05-14-2022 End: 07-14-2022 Comprehensive metabolic 2000 panel - Serum or Plasma COMP METABOLIC PANEL Lab Routine Telogen effluvium Encounter for medication monitoring Expected: 05/14/2022, Expires: 07/14/2022 [facility] Work Phone: Comment on above: Expected: 05/14/2022, Expires: 2 Start: 04-17-2022 End: 04-17-2023 Cobalamin (Vitamin B12) [Mass/volume] in Serum or Plasma [facility] Work Phone: Comment on above: Expected: 04/17/2022, Expires: 3 Start: 04-17-2022 End: 04-17-2023 Ferritin [Mass/volume] in Serum or Plasma [facility] Work Phone: Comment on above: Expected: 04/17/2022, Expires: 3 Start: 04-17-2022 End: 06-17-2022 Folate [Mass/volume] in Serum or Plasma [facility] Work Phone: Comment on above: Expected: 04/17/2022, Expires: 2 Start: 04-17-2022 End: 06-17-2022 Haptoglobin [Mass/volume] in Serum or Plasma [facility] Work Phone: Comment on above: Expected: 04/17/2022, Expires: 2 Start: 04-17-2022 End: 04-17-2023 Iron and Iron binding capacity panel - Serum or Plasma [facility] Work Phone: Comment on above: Expected: 04/17/2022 (Approximate), Expi res: 04/17/2023 Start: 12-19-2021 COVID-19 VACCINE (4 - Booster for Moderna series) COVID-19 VACCINE (4 - Booster for Moderna series) [facility] Start: 1996 RSV Vaccine (1 - 1-dose 60+ series) RSV Vaccine (1 - 1-dose 60+ series) [facility] Ambulatory bp mntr w /sw 24 hr+ rec scan lindsey i&r AMBULATORY BP MONITORING Cardiology Routine 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 disease, or chronic kidney disease (HCC) Ordered: 05/18/2022 [facility] Work Phone: Comment on above: Ordered: 05/18/2022 Bacteria identified in Urine by Culture URINE CULTURE Microbiology Routine Pain with urination 10/05/2022 4:32 PM EST [facility] Work Phone: Bacteria identified in Urine by Culture URINE CULTURE Microbiology Routine Urgency of urination 07/17/2024 11:37 AM EDT [facility] Work Phone: End: 01-29-2026 Basic metabolic 2000 panel - Serum or Plasma BASIC METABOLIC PANEL Lab Routine 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 disease, or chronic kidney disease (HCC) Every 6 months for 4 Occurrences starting 01/29/2025 until 01/29/2026 [facility] Comment on above: Every 6 months for 4 Occurrences startin g 01/29/2025 until 01/29/2026 End: 10-01-2023 CBC W Auto Differential panel - Blood CBC + DIFF Lab Routine Anemia due to stage 3b chronic kidney disease (HCC) Every 3 months for 4 Occurrences starting 10/01/2022 until 10/01/2023 [facility] Work Phone: Comment on above: Every 3 months for 4 Occurrences startin g 10/01/2022 until 10/01/2023 End: 01-29-2026 CBC W Auto Differential panel - Blood COMPLETE BLOOD COUNT AND DIFFERENTIAL Lab Routine Anemia due to stage 3b chronic kidney disease (HCC) Every 3 months for 8 Occurrences starting 01/29/2025 until 01/29/2026 [facility] Work Phone: Comment on above: Every 3 months for 8 Occurrences startin g 01/29/2025 until 01/29/2026 End: 01-18-2025 DBT Breast - bilateral screening NICOLE SCREENING W MICHELLE Radiology Routine Personal history of malignant neoplasm of breast Encounter for screening mammogram for malignant neoplasm of breast 1 Occurrences starting 12/20/2023 until 01/18/2025 [facility] Work Phone: Comment on above: 1 Occurrences starting 12/20/2023 until 01/18/2025 End: 01-29-2025 DBT Breast - bilateral screening NICOLE SCREENING W MICHELLE Radiology Routine Encounter for screening mammogram for breast cancer 1 Occurrences starting 12/31/2023 until 01/29/2025 [facility] Work Phone: Comment on above: 1 Occurrences starting 12/31/2023 until 01/29/2025 End: 08-03-2024 DXA-AXIAL SKELETON DXA-AXIAL SKELETON Radiology Routine Asymptomatic postmenopausal state Medicare annual wellness visit, subsequent 1 Occurrences starting 07/05/2023 until 08/03/2024 [facility] Work Phone: Comment on above: 1 Occurrences starting 07/05/2023 until 08/03/2024 DXA-AXIAL SKELETON DXA-AXIAL SKE LETON Radiology Routine Asymptomatic postmenopausal state Medicare annual wellness visit, subsequent 08/04/2023 12:52 PM EDT [facility] Work Phone: ECG COMPLETE ECG COMPLETE ECG Routine 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 disease, or chronic kidney disease (HCC) Exertional dyspnea Ordered: 07/03/2024 [facility] Work Phone: Comment on above: Ordered: 07/03/2024 End: 09-13-2025 Echocardiography ECHO Cardiology Routine Chronic diastolic (congestive) heart failure (HCC) 1 Occurrences starting 09/13/2024 until 09/13/2025 [facility] Work Phone: Comment on above: 1 Occurrences starting 09/13/2024 until 09/13/2025 FECAL LACTOFERRIN/LEUKOCYTES FECAL LACTOFERRIN/LEUKOCYTES Lab Routine Collagenous colitis Ordered: 03/28/2024 [facility] Comment on above: Ordered: 03/28/2024 HEARING TEST/AUDIOGRAM HEARING T EST/AUDIOGRAM Audiology Routine Medicare annual wellness visit, subsequent Decreased hearing of both ears Ordered: 07/05/2023 [facility] Work Phone: Comment on above: Ordered: 07/05/2023 End: 03-28-2026 HEARING TEST/AUDIOGRAM HEARING TEST/AUDIOGRAM Audiology Routine Decreased hearing of both ears 1 Occurrences starting 03/27/2025 until 03/28/2026 [facility] Comment on above: 1 Occurrences starting 03/27/2025 until 03/28/2026 Hemoglobin.gastroint shanon nal.lower [Presence] in Stool by Immunoassay FECAL OCCULT BLOOD TEST Lab Routine Anemia, unspecified type Ordered: 04/14/2022 [facility] Work Phone: Comment on above: Ordered: 04/14/2022 End: 08-03-2024 Hepatobil syst imag inc gb w/pharma intervenj NM HEPATOBILIARY W EF AND/OR RX Radiology Routine Medicare annual wellness visit, subsequent Epigastric pain 1 Occurrences starting 07/05/2023 until 08/03/2024 [facility] Work Phone: Comment on above: 1 Occurrences starting 07/05/2023 until 08/03/2024 End: 02-08-2025 MG Breast - right Diagnostic for implant NICOLE DIAGNOSTIC RIGHT Radiology Routine Abnormal mammogram 1 Occurrences starting 01/10/2024 until 02/08/2025 [facility] Work Phone: Comment on above: 1 Occurrences starting 01/10/2024 until 02/08/2025 End: 04-26-2026 MR Biliary ducts and Pancreatic duct WO and W contrast IV MRI PANC/LEYDA WO/W IVCON Radiology Routine Epigastric pain 1 Occurrences starting 03/27/2025 until 04/26/2026 [facility] Comment on above: 1 Occurrences starting 03/27/2025 until 04/26/2026 End: 04-26-2026 MR Unspecified body region 3D post processing MRI 3D POST PROCESSING Radiology Routine Epigastric pain 1 Occurrences starting 03/27/2025 until 04/26/2026 [facility] Comment on above: 1 Occurrences starting 03/27/2025 until 04/26/2026 Patient Education ED URI, Viral, No Abx (Adult) [facility] Work Phone: Patient referral [facility] Work Phone: PT PLAN OF CARE CERTIFICATION PT PLAN OF CARE CERTIFICATION Procedures Routine Acute right-sided thoracic back pain Ordered: 04/08/2023 [facility] Comment on above: Ordered: 04/08/2023 End: 07-03-2025 STRESS ECHO TREADMILL STRESS ECHO TREADMILL Cardiology Routine Exertional dyspnea 1 Occurrences starting 07/03/2024 until 07/03/2025 [facility] Comment on above: 1 Occurrences starting 07/03/2024 until 07/03/2025 Ther px 1/> areas ea ch 15 minutes massage MASSAGE THERAPY Procedures Routine Chronic back pain, unspecified back location, unspecified back pain laterality Ordered: 02/23/2023 [facility] Work Phone: Comment on above: Ordered: 02/23/2023 End: 04-21-2024 US ABD RIGHT UPPER QUADRANT US ABD RIGHT UPPER QUADRANT Radiology Routine Epigastric abdominal tenderness without rebound tenderness 1 Occurrences starting 03/23/2023 until 04/21/2024 [facility] Work Phone: Comment on above: 1 Occurrences starting 03/23/2023 until 04/21/2024 End: 02-08-2025 US Breast - right limited US BREAST LTD RIGHT Radiology Routine Abnormal mammogram 1 Occurrences starting 01/10/2024 until 02/08/2025 [facility] Work Phone: Comment on above: 1 Occurrences starting 01/10/2024 until 02/08/2025 End: 10-31-2023 US KIDNEY/BLADDER US KIDNEY/BLADDER Radiology Routine Urinary retention 1 Occurrences starting 10/01/2022 until 10/31/2023 [facility] Work Phone: Comment on above: 1 Occurrences starting 10/01/2022 until 10/31/2023 End: 10-31-2023 Us pelvic nonobstetric image dcmtn limited/f/u US PELVIS BLADDER Radiology Routine Urinary retention 1 Occurrences starting 10/01/2022 until 10/31/2023 [facility] Work Phone: Comment on above: 1 Occurrences starting 10/01/2022 until 10/31/2023 End: 08-02-2025 XR Chest PA and Lateral XR CHEST 2V FRONTAL/LAT Radiology Routine Exertional dyspnea 1 Occurrences starting 07/03/2024 until 08/02/2025 [facility] Comment on above: 1 Occurrences starting 07/03/2024 until 08/02/2025 [facility] c [facility] c [facility] c [facility] c [facility] c [facility] c [facility] Immunizations Immunization Date Immunization Notes Care Provider [facility] 08-21-2023 influenza, injectabl e, quadrivalent, contains preservative Immunization [place] Work Phone: [facility] 08-21-2023 influenza virus vaccine, unspecified formulation Susannah Clemente MD Work Phone: [facility] 08-08-2022 influenza, injectabl e, quadrivalent, contains preservative Immunization Fam Work Phone: [facility] 08-08-2022 influenza virus vaccine, unspecified formulation Susannah Clemente MD Work Phone: [facility] 07-16-2022 COVID-19 booster vaccine, age 12+ yr, bivalent (PFIZER-BIONTLuxola) Susannah Clemente MD Work Phone: [facility] 09-24-2021 zoster vaccine recombinant Kelsi Barbours[place] OT/L Work Phone: [facility] Work Phone: 08-19-2021 influenza, injectabl e, quadrivalent, contains preservative Kelsi [place] OT/L Work Phone: [facility] 06-25-2021 zoster vaccine recombinant Kelsi [place] OT/L Work Phone: [facility] 12-05-2020 COVID-19 vaccine, fu ll dose (MODERNA) Kelsi [place] OT/L Work Phone: [facility] Work Phone: 11-07-2020 COVID-19 vaccine, fu ll dose (MODERNA) Kelsi [place] OT/L Work Phone: [facility] Work Phone: 08-15-2020 influenza, injectabl e, quadrivalent, contains preservative Kelsi [place] OT/L Work Phone: [facility] 09-01-2019 influenza, injectabl e, quadrivalent, contains preservative Kelsi [place] OT/L Work Phone: [facility] 08-12-2018 influenza, injectabl e, quadrivalent, contains preservative Kelsi [place] OT/L Work Phone: [facility] Work Phone: 07-30-2017 influenza, injectabl e, quadrivalent, contains preservative Kelsi [place] OT/L Work Phone: [facility] 07-18-2017 influenza, high dose seasonal, preservative-free Kelsi [place] OT/L Work Phone: [facility] Work Phone: 07-18-2017 influenza, injectabl e, quadrivalent, preservative free [facility] 07-18-2017 influenza, seasonal, injectable, preservative free Kelsi [place] OT/L Work Phone: [facility] 08-21-2016 influenza, injectabl e, quadrivalent, contains preservative Kelsi Barboursville OT/L Work Phone: [facility] 08-12-2015 influenza, high dose seasonal, preservative-free Kelsi Barboursville OT/L Work Phone: [facility] 11-22-2014 pneumococcal conjuga te vaccine, 13 valent Kesli Barbours[place] OT/L Work Phone: [facility] 11-22-2014 pneumococcal polysaccharide vaccine, 23 valent Kelsi Barbours[place] OT/L Work Phone: [facility] Work Phone: 08-16-2014 influenza, seasonal, injectable Kelsi Barboursville OT/L Work Phone: [facility] Work Phone: 07-29-2013 influenza virus vaccine, unspecified formulation Kelsi Barboursville OT/L Work Phone: [facility] 08-15-2012 influenza virus vaccine, unspecified formulation Kelsi Barboursville OT/L Work Phone: [facility] 08-15-2012 tetanus toxoid, redu emma diphtheria toxoid, and acellular pertussis vaccine, adsorbed Kelsi Barboursville OT/L Work Phone: [facility] 05-31-2012 pneumococcal conjuga te vaccine, 13 valent Kelsi Barboursville OT/L Work Phone: [facility] Work Phone: 08-29-2011 influenza virus vaccine, unspecified formulation Kelsi Barboursville OT/L Work Phone: [facility] 08-15-2010 influenza virus vaccine, unspecified formulation Kelsi Barboursville OT/L Work Phone: [facility] Work Phone: 08-01-2009 influenza virus vaccine, unspecified formulation Kelsi Barboursville OT/L Work Phone: [facility] Work Phone: 10-18-2008 zoster vaccine, live Kelsi Barbours[place] OT/L Work Phone: [facility] Work Phone: 08-24-2008 influenza virus vaccine, unspecified formulation Kelsi Barbours[place] OT/L Work Phone: [facility] Work Phone: 07-20-2008 influenza virus vaccine, unspecified formulation Kelsi Barbours[place] OT/L Work Phone: [facility] 08-26-2007 influenza virus vaccine, unspecified formulation Kelsi Barboursville OT/L Work Phone: [facility] 08-13-2006 influenza virus vaccine, unspecified formulation Kelsi Barboursville OT/L Work Phone: [facility] 09-04-2005 influenza virus vaccine, unspecified formulation Kelsi Barboursville OT/L Work Phone: [facility] Work Phone: 10-18-2004 tetanus and diphther ia toxoids, adsorbed, preservative free, for adult use (2 Lf of tetanus toxoid and 2 Lf of diphtheria toxoid) Kelsi Barboursville OT/L Work Phone: [facility] 10-18-2003 pneumococcal polysaccharide vaccine, 23 valent Kelsi Barboursville OT/L Work Phone: [facility] 10-18-1994 hepatitis A vaccine, unspecified formulation Kelsi Barboursville OT/L Work Phone: [facility] 10-18-1994 hepatitis B vaccine, adult dosage Kelsi Barboursville OT/L Work Phone: [facility] Payers Date Payer Category Payer Medicare MEDICARE MEDICAR E A AND B [id number] 2020-Present [phone] [place] [address] Medicare [id number] 2020 Medicare [id number] 2020 Private Health Insurance [employer] Member Subscriber Plan / Payer (Effective 2020-Present) Name: Zenaida Evans Relation to Subscriber: Self Name: Zenaida Evans Payer ID: Not on file Group ID: Not on file Type: Indemnity Address: [address] [place] [id number] 2020 Unknown PHYSICIANS LISA L PHYSICIANS MUTUAL SUPPLEMENT [id number] 2020-Present [phone] [address] [place] Indemnity [id number] 2020 Unknown PHYSICIANS MUTUA L PHYSICIANS MUTUAL SUPPLEMENT [id number] 2020-Present [phone] [address] [place] Indemnity [id number] 2020 Medicare [id number] 2020 Unknown [id number] Self-pay SELF PAY INSURANCE [id number] Unknown [id number] Social History Date Type Detail Facility Start: 01-20-2012 End: 06-11-2024 Tobacco smoking status AZIS Ex-smoker [facility] Work Phone: Start: [birth year]1955 End: 01-19-1967 History of tobacco use Current smoker [facility] Start: 01-19-1955 End: 01-19-1967 History of tobacco use Cigarette Smoker [facility] Start: 12-29-2021 End: 03-27-2025 Alcohol intake Current drinker of alcohol (finding) [facility] Start: 07-05-2020 History SDOH Alcohol Binge 1 [facility] Start: 09-19-2020 History SDOH Financial 5 [facility] Start: 1935 Sex Assigned At Not on file [facility] Start: 06-29-2020 End: 09-11-2022 Exposure to SARS-CoV-2 (event) Not sure [facility] Work Phone: Start: 05-08-2022 End: 05-18-2022 Exposure to SARS-CoV-2 (event) Unable to assess [facility] Start: 01-20-2012 End: 02-18-2023 Cigarettes smoked current (pack per day) - Reported 1 [facility] Start: 01-20-2012 End: 06-11-2024 Tobacco use and exposure Smokeless tobacco non-user [facility] Start: 03-08-2023 History SDOH Physica l Activity DPW 3 [facility] Start: 03-08-2023 History SDOH Physica l Activity MPS 6 [facility] Start: 03-08-2023 History SDOH Stress 2 [facility] Start: 02-18-2023 End: 03-08-2023 Social connection and isolation panel [facility] In a typical week, how many times do you talk on the telephone with family, friends, or neighbors? Patient refused [facility] Are you now , , , , never or living with a partner? Refused [facility] Do you feel stress - tense, restless, nervous, or anxious, or unable to sleep at night because your mind is troubled all the time - these days [OSQ] Only a little [facility] (I/We) worried whether (my/our) food would run out before (I/we) got money to buy more. DK or Refused [facility] Start: 03-06-2022 Gender identity Identifies as female gender (finding) [facility] How often do you hav e 6 or more drinks on 1 occasion? Never [facility] Start: 11-06-2023 Tobacco smoking status NHIS Unknown if ever smoked [facility] Start: 10-15-2019 None [facility] Start: 10-16-2019 Spouse/ Signif icant Other [facility] Start: 10-16-2019 Non-smoker [facility] Start: 1935 Sex Assigned At Female W [facility] Are you now , , , , never or living with a partner? [facility] Do you feel stress - tense, restless, nervous, or anxious, or unable to sleep at night because your mind is troubled all the time - these days [OSQ] To some extent [facility] NEGATED: Highlighted rowStart: ERICKF History of tobacco use Passive smoker [facility] Goals Date Patient Goal Desired Activity /State Personal health goal Functional Status Date Assessment Result Facility 03-27-2025 Total score [AUDIT-C] 0 03/27/20 25 3:59 PM EDT Tara Orona MA [facility] 07-13-2024 Total score [AUDIT-C] -1 024 5:43 AM EDT User, Mychart [facility] 07-13-2024 Functional status Patient declin ed 07/13/2024 5:43 AM EDT User, Mychart Patient declined [facility] 11-24-2019 Are you deaf, or do you have serious difficulty hearing No 11/24/2019 3:17 PM Mary HarrisonRn), RN No [facility] 11-24-2019 Are you blind, or do you have serious difficulty seeing, even when wearing glasses No 11/24/2019 3:17 PM Mary Harrison (Rn), RN No [facility] 11-24-2019 Do you have serious difficulty walking or climbing stairs No 11/24/2019 3:17 PM Mary Harrison (Rn), RN No [facility] 11-24-2019 Do you have difficul ty dressing or bathing No 11/24/2019 3:17 PM Mary Harrison), RN No [facility] 11-24-2019 Because of a physica l, mental, or emotional condition, do you have difficulty doing errands alone such as visiting a physician's office or shopping No 11/24/2019 3:17 PM Mary Harrison (Rn), RN No [facility] Mental Status Date Assessment Result Facility 11-06-2023 Cognitive function Level Of Cons ciousness Awake;Alert;Appropriate;Fol lows Commands [facility] Work Phone: 11-24-2019 Because of a physica l, mental, or emotional condition, do you have serious difficulty concentrating, remembering, or making decisions No 11/24/2019 3:17 PM Mary Harrison (Rn), RN No [facility] Clinical Notes 12-22-2019 to 04-05-2025 Telephone Encounter - Tara Orona MA - 04/05/2025 4:03 PM EDTTelephone Encounter - Tara Orona MA - 04/05/2025 4:03 PM EDTPatient InstructionsPatient InstructionsPatient Instructions Note Date & Type Note Facility 04-05-2025 Telephone encounter Note Placed form in pending paper slot above JOAN''s desk [facility] 04-05-2025 Miscellaneous Notes Placed form in pending paper slot above MA''s desk This is an application to a wellness program at [facility]. I see that her Biostatistics Teacher has ordered a stress test and I would have to defer to him if there are any limitations after we receive results of the stress test. Placed form in Dr. Clemente's in basket, please sign documented in this encounter [facility] 04-05-2025 Telephone encounter Note This is an application to a wellness program at [facility]. I see that her Biostatistics Teacher has ordered a stress test and I would have to defer to him if there are any limitations after we receive results of the stress test. [facility] 04-04-2025 Telephone encounter Note Preliminary Approval for Scheduling Purposes ONLY Are Cardiac PET orders Present: Yes Do the order comments specify a Protocol or Instruction? No LVEF: LV Ejection Fraction (%) Date Value 04/03/2025 62 Test Approved: Yes, N/A PET Perfusion Rest & Stress (0109) Additional Comments: As soon as insurance will allow Encounter for screening for cardiovascular disorders [Z13.6] Test Approved by: Dee Lawson RN If additional orders are required route to ordering physician and to P PET BLACKJACK SUPERVISOR MC with recommendations. If all recommended orders are present route to P PET BLACKJACK SUPERVISOR MC [facility] 04-04-2025 Miscellaneous Notes Preliminary Approval for Scheduling Purposes ONLY Are Cardiac PET orders Present: Yes Do the order comments specify a Protocol or Instruction? No LVEF: LV Ejection Fraction (%) Date Value 04/03/2025 62 Test Approved: Yes, N/A PET Perfusion Rest & Stress (0109) Additional Comments: As soon as insurance will allow Encounter for screening for cardiovascular disorders [Z13.6] Test Approved by: Dee Lawson RN If additional orders are required route to ordering physician and to P PET BLACKJACK SUPERVISOR MC with recommendations. If all recommended orders are present route to P PET BLACKJACK SUPERVISOR MC This form is used for MAIN CAMPUS APPOINTMENTS ONLY. Is this request for a [facility] [place] PET scan appointment? Yes: Tso: Divine Calabrese Who do we call to schedule this appointment? Patient Requesting Staff [id number] Area Code + Phone/Pager: N/A PET Orders (A delay in scheduling will result if the orders are not present at time of review): Internal ADDITIONAL ACTION MAY BE REQUIRED IF PATIENTS OON INSURANCE OR SELF PAY COVERAGE HAS NOT BEEN CLEARED FOR REQUESTED APPOINTMENT. Scheduling: WILIAM: As soon as insurance will allow What account will this PET appointment be linked to? P/F Type of PET: Myocardial (Cardiac). LVEF: LV Ejection Fraction (%) Date Value 04/03/2025 62 Additional comments: Same day/next day medically urgent scans please call [phone] to expedite Send requests to P CARDIAC PET MD MC documented in this encounter [facility] 04-04-2025 Telephone encounter Note This form is used for MAIN CAMPUS APPOINTMENTS ONLY. Is this request for a [facility] [place] PET scan appointment? Yes: Tso: Divine Calabrese Who do we call to schedule this appointment? Patient Requesting Staff [id number] Area Code + Phone/Pager: N/A PET Orders (A delay in scheduling will result if the orders are not present at time of review): Internal ADDITIONAL ACTION MAY BE REQUIRED IF PATIENTS OON INSURANCE OR SELF PAY COVERAGE HAS NOT BEEN CLEARED FOR REQUESTED APPOINTMENT. Scheduling: WILIAM: As soon as insurance will allow What account will this PET appointment be linked to? P/F Type of PET: Myocardial (Cardiac). LVEF: LV Ejection Fraction (%) Date Value 04/03/2025 62 Additional comments: Same day/next day medically urgent scans please call [phone] to expedite Send requests to P CARDIAC PET [facility] 04-03-2025 Instructions Paul Bautista MD - 04/03/2025 12:37 PM EDT Thank you for visiting the [facility] for Heart Failure at the [facility]. Here are your instructions. 1. Increase indapamide to 2.5mg daily. 2. Continue Farxiga at 5mg daily. 3. Labs in 1 week after starting higher dose. 4. Schedule Stress test. 5. Return in 6 months with plans to discuss testing in interim. Please call with questions or concerns. Office: [phone] Paul Bautista MD documented in this encounter [facility] 04-03-2025 Note HNO ID: [id number] Author: PAUL BAUTISTA MD Service: ? Author Type: Physician Type: Progress Notes Filed: 04/03/2025 12:45 Note Text: [facility] [place] [facility] For Heart Failure SECTION OF HEART FAILURE and CARDIAC TRANSPLANT MEDICINE OUTPATIENT VISIT DATE April 03, 2025 OUTPATIENT VISIT TYPE Established Patient PRIMARY CARE PHYSICIAN: Susannah Clemente [address] [place] [id number] CHIEF COMPLAINT: Shortness of breath and chest pain NURSING INTAKE (Patient?s concerns and/or recent hospitalizations/ER visits): HF Nursing Assessment: Interim Hospitalizations and/or ER visits:no Chest Pain: some not today Skipping or irregular heartbeats: no Shortness of breath at rest: no Shortness of breath with activity: yes Cough: yes Waking up in the middle of the night gasping for air: no Lightheadedness or dizziness: yes Feeling like you are going to pass out: sometimes Actually passing out: no Poor energy level: yes Unintentional weight gain: no Unintentional weight loss: no Swelling in your legs,feet, abdomen: unsure Filling up quickly when you eat: no appetite HISTORY OF PRESENT ILLNESS: 89 yo male with pmh of hypertension, CKD stage 3b, hypothyroidism, and HFpEF who presents for further evaluation of her HFpEF. In July of last year, she experienced an episode of dyspnea and chest pain while walking six blocks to a meeting. She describes difficulty breathing, chest pain, and trouble ambulating. The chest pain was localized and did not radiate. Upon returning home, the pain subsided. Following this incident, she underwent a stress test, during which she could only exercise for approximately two minutes due to dyspnea. The test reportedly showed no significant changes in the EKG or echocardiogram. Since then, she reports worsening symptoms, including increased difficulty walking up stairs and daily episodes of chest tension. These episodes occur during physical activity and occasionally require her to stop and rest. The chest pain is less severe than the initial episode but occurs approximately once a day. She denies experiencing chest pain while sitting or during sleep and reports no sleep disruptions due to chest pain. She also reports intermittent episodes of feeling sick, characterized by mild headaches, slight nausea, and low energy. These episodes last a couple of days and then resolve. She denies any recent severe chest pain or new symptoms. Her blood pressure has been stable, averaging around 130 mmHg. She monitors her weight regularly, noting a recent decrease to 128-130 lbs, which she attributes to possibly eating less. She has been supplementing her diet with protein shakes to maintain adequate caloric intake. She is currently taking indapamide and Farxiga 5 mg daily. She previously tried Farxiga 10 mg but could not tolerate it. PAST MEDICAL HISTORY Diagnosis Date Breast cancer (HCC) 09/[address] Wood right ER positive s/p surgery/radiation and AI Collagenous colitis 07/30/2017 On biopsy 2012. Diarrhea hx of colitis Diffuse cystic mastopathy Dyspareunia Essential hypertension H/O complete eye exam 03/13/2011 no retinopathy detected -both eyes - [facility] - return in 1 year - Dr. [...] Social History Tobacco Use Smoking status: Former Current packs/day: 0.00 Average packs/day: 1 pack/day for 12.0 years (12.0 ttl pk-yrs) Types: Cigarettes Start date: 01/19/1955 Quit date: 01/19/1967 Years since quittin.2 Passive exposure: Never Smokeless (more content not included)... [facility] 04-03-2025 History of Presen t illness Narrative Images from the original note were not included. Heart [facility] For Heart Failure SECTION OF HEART FAILURE and CARDIAC TRANSPLANT MEDICINE OUTPATIENT VISIT DATE April 03, 2025 OUTPATIENT VISIT TYPE Established Patient PRIMARY CARE PHYSICIAN: Susannah Clemente [address] [place] [address] CHIEF COMPLAINT: Shortness of breath and chest pain NURSING INTAKE (Patient s concerns and/or recent hospitalizations/ER visits): HF Nursing Assessment: Interim Hospitalizations and/or ER visits:no Chest Pain: some not today Skipping or irregular heartbeats: no Shortness of breath at rest: no Shortness of breath with activity: yes Cough: yes Waking up in the middle of the night gasping for air: no Lightheadedness or dizziness: yes Feeling like you are going to pass out: sometimes Actually passing out: no Poor energy level: yes Unintentional weight gain: no Unintentional weight loss: no Swelling in your legs,feet, abdomen: unsure Filling up quickly when you eat: no appetite HISTORY OF PRESENT ILLNESS: 89 yo male with pmh of hypertension, CKD stage 3b, hypothyroidism, and HFpEF who presents for further evaluation of her HFpEF. In July of last year, she experienced an episode of dyspnea and chest pain while walking six blocks to a meeting. She describes difficulty breathing, chest pain, and trouble ambulating. The chest pain was localized and did not radiate. Upon returning home, the pain subsided. Following this incident, she underwent a stress test, during which she could only exercise for approximately two minutes due to dyspnea. The test reportedly showed no significant changes in the EKG or echocardiogram. Since then, she reports worsening symptoms, including increased difficulty walking up stairs and daily episodes of chest tension. These episodes occur during physical activity and occasionally require her to stop and rest. The chest pain is less severe than the initial episode but occurs approximately once a day. She denies experiencing chest pain while sitting or during sleep and reports no sleep disruptions due to chest pain. She also reports intermittent episodes of feeling sick, characterized by mild headaches, slight nausea, and low energy. These episodes last a couple of days and then resolve. She denies any recent severe chest pain or new symptoms. Her blood pressure has been stable, averaging around 130 mmHg. She monitors her weight regularly, noting a recent decrease to 128-130 lbs, which she attributes to possibly eating less. She has been supplementing her diet with protein shakes to maintain adequate caloric intake. She is currently taking indapamide and Farxiga 5 mg daily. She previously tried Farxiga 10 mg but could not tolerate it. PAST MEDICAL HISTORY Diagnosis Date Breast cancer (HCC) 09/[address] Wood right ER positive s/p surgery/radiation and AI Collagenous colitis 07/30/2017 On biopsy 2012. Diarrhea hx of colitis Diffuse cystic mastopathy Dyspareunia Essential hypertension H/O complete eye exam 03/13/2011 no retinopathy detected -both eyes - [facility] - return in 1 year - Dr. [...] Social History Tobacco Use Smoking status: Former Current packs/day: 0.00 Average packs/day: 1 pack/day for 12.0 years (12.0 ttl pk-yrs) Types: Cigarettes Start date: 01/19/1955 Quit date: 01/19/1967 Years since quittin.2 Passive exposure: Never Smokeless tobacco: Never Vaping Use Vaping status: Never Used Substance Use Topics Alcohol use: Yes Alcohol/week: 5.0 - 7.0 standard drinks of alcohol Types: 5 - 7 Glasses of Wine (5oz) per week Drug use: No FAMILY HISTORY Problem Relation Age of Onset Alzheimer's Disease Mother hypertension/stroke d89 Hypertension Mother Stroke Mother Heart Father heart failure, d 72 other (emphseyma) Sister d 59 other (healthy) Daughter Pancreatic Cancer Daughter 65 Ovarian cancer Daughter other (healthy) Son Breast Cancer Maternal Aunt ALLERGIES: ALLERGIES Allergen Reactions Scopolamine Mental Status Change Hallucinations Amlodipine Other: See Comments Significant swelling even on 2.5 mg per day. Arb-Angiotensin Rec* Contraindication-Medical Surgical Bright, hyperkalemia Hctz [Thiazides] Contraindication-Medical Surgical Hyponatremia at 12.5 mg. Hydralazine Intolerance nausea Iron GI Upset CAN TAKE SLO-IRON Jardiance [Empaglif* Diarrhea Lipitor [Atorvastat* Myalgia Losartan Other: See Comments BRIGHT with elevated potassium and creatinine. Spironolactone Intolerance Blood pressure went up Talwin [Pentazocine* Mental Status Change HALLUCINATIONS Verapamil Hcl GI Upset constipation CURRENT MEDICATIONS: labetalol (TRANDATE) 200 mg tablet Take 1 tablet by mouth two times a day. cloNIDine TTS (CATAPRES-TTS) 0.1 mg/24 hr Apply 1 patch as directed one time a week. nitroglycerin sublingual (NITROQUICK) 0.4 mg SL tablet Dissolve 1 tablet under the tongue as needed for chest pain. If no pain relief call 911. levothyroxine (SYNTHROID) 88 mcg tablet Take 1 tablet by mouth once daily. minoxidil (LONITEN) 2.5 mg tablet 1 TABLET DAILY indapamide (LOZOL) 1.25 mg tablet Take 1 tablet by mouth once daily. MULTIVITAMIN ORAL Take 1 tablet by mouth once daily. Melatonin 5 mg cap Take 1 capsule by mouth at bedtime as needed. biotin 5 mg tab Take 5 mg by mouth once daily. ketoconazole (NIZORAL) 2 % shampoo Use to wash face and scalp two times a week. Lather and leave in for 3-5 minutes before rinsing. dapagliflozin propanediol (FARXIGA) 5 mg tablet Take 1 tablet by mouth daily with breakfast. furosemide (LASIX) 20 mg tablet Take 1 tablet by mouth every Wednesday,Wednesday,Wednesday (0600). (Patient not taking: Reported on 03/27/2025) REVIEW OF SYSTEMS: CONSTITUTION: Negative for: Weight loss or gain, Fever. Chills, Night sweats HEENT: Negative for: Hearing loss, Nosebleeds, Mouth sores, Trouble swallowing, Dry mouth RESPIRATORY: Positive for: Difficulty breathing Negative for: Cough GASTROINTESTINAL: Negative for: Melena, Diarrhea, Nausea, Abdominal distension, Early satiety MUSCULOSKELETAL: Negative for: Arthralgias, Myalgias NEUROLOGICAL: Negative for: Headaches, Dizziness SKIN: Negative for: Rash EYES: Negative for: Vision disturbance CARDIOVASCULAR: Positive for: Chest pain Negative for: Leg swelling, Arrhythmia and Pre-syncope GENITOURINARY: Negative for: Difficulty urinatiing PATIENT ENTERED DATA: 03/31/2023 KCCQ-12 Scores Physical Limitation Score 83.33 (Class II Heart Failure ) Symptom Frequency Score 81.25 (Class II Heart Failure ) Quality of Life Score 75 (Good to Excellent Quality of Life) Social Limitation Score 83.33 (Class II Heart Failure) Overall Summary Score 80.73 (Class II Heart Failure ) 05/16/2024 05/27/2024 07/13/2024 PHQ-9 Score 10 8 7 07/10/2020 03/08/2023 04/27/2024 PROMIS Global Health - (T-Scores - the mean of general population = 50. Five points is a clinically meaningful difference.) Physical T-Score 42.3 42.3 42.3 37.4 Mental T-Score 38.8 38.8 43.5 33.8 Multiple values from one day are sorted in reverse-chronological order PHYSICAL EXAMINATION: BP 168/89 Pulse 67 Resp 15 Ht 168.9 cm (5' 6.5) Wt 58.5 kg (129 lb) SpO2 95% BMI 20.51 kg/m General: Well appearing, in no acute [...] TESTING: I have personally reviewed the Laboratory Testing and Echocardiogram. Last EKG Result Conclusion ECG COMPLETE Collected: 07/03/2024 10:54 AM (Final result) Impression: NORMAL SINUS RHYTHM POSSIBLE LEFT ATRIAL ENLARGEMENT BORDERLINE ECG Confirmed by CHRIS SERRANO, [facility] ([id number]) on 07/03/2024 3:08:37 PM Latest Reference Range & Units 02/01/25 14:53 Sodium 136 - 144 mmol/L 139 Potassium 3.7 - 5.1 mmol/L 4.7 Chloride 98 - 107 mmol/L 104 CO2 22 - 30 mmol/L 28 BUN 7 - 21 mg/dL 43 (H) Creatinine 0.58 - 0.96 mg/dL 1.38 (H) Glucose 74 - 99 mg/dL 102 (H) Calcium 8.5 - 10.2 mg/dL 9.9 Anion Gap 8 - 15 mmol/L 7 (L) eGFR >=60 mL/min/1.73m 37 (L) WBC 3.70 - 11.00 k/uL 4.29 RBC 3.90 - 5.20 m/uL 3.52 (L) Hemoglobin 11.5 - 15.5 g/dL 11.0 (L) Hematocrit 36.0 - 46.0 % 33.2 (L) Platelet Count 150 - 400 k/uL 150 MCV 80.0 - 100.0 fL 94.3 MCH 26.0 - 34.0 pg 31.3 MCHC 30.5 - 36.0 g/dL 33.1 MPV 9.0 - 12.7 fL 9.1 RDW-CV 11.5 - 15.0 % 12.8 DTYPE Auto Neut% % 45.9 Abs Neut (ANC) 1.45 - 7.50 k/uL 1.97 Lymph% % 42.4 Abs Lymph 1.00 - 4.00 k/uL 1.82 Island% % 9.6 Abs Island <0.87 k/uL 0.41 Eosin% % 1.4 Abs Eosin <0.46 k/uL 0.06 Baso% % 0.5 Abs Baso <0.11 k/uL <0.03 Immature Gran % % 0.2 IMMATURE GRANS (ABS) <0.10 k/uL <0.03 NRBC /100 WBC 0.0 Absolute nRBC <0.01 k/uL <0.01 (H): Data is abnormally high (L): Data is abnormally low IMPRESSION: NYHA Functional Class: II Stage: C heart failure 89 yo male with pmh of hypertension, CKD stage 3b, hypothyroidism, and HFpEF who presents for further evaluation of her HFpEF. 1. Chronic HFpEF (chronic diastolic heart failure) - LVEF 60%, normal wall thickness, normal LA size (27 ml/m2) 2. Hypertension - better controlled 3. Hypothyroidism 4. CKD stage 3b (cr 1.36 with eGFR of 36) 5. Stable angina Ms. Evans presents for evaluation of her HFpEF. She has increased dyspnea on exertion with issues with exertional chest pain and subsides with rest concerning for angina. Discussed repeating pharmacologic stress test vs proceed with coronary angiogram and she would like to repeat a pharmacologic stress before proceeding with contrast study given her CKD. Hypertensive, will increase indapamide to 2.5mg daily. Continue SGLt2i for CKD. Recommendations: 1. Increase indapamide to 2.5mg daily. 2. Labs in 1 week. 3. Schedule PET stress test. 4. Return in 6 months. I personally interviewed, confirmed and edited the above information as obtained by others I personally spent 30 minutes in total time involved in the management and care of this patient. We discussed natural history of disease, current treatment options, and future potential treatment options. We discussed diet, exercise, other non-medical management as above. Paul Bautista MD [facility] Section Of Heart Failure and Cardiac Transplant Medicine Heart and Vascular [place] [facility] Desk [id number] [place] [address] documented in this encounter [facility] 04-02-2025 Telephone encounter Note Placed form in Dr. Clemente's in basket, please sign [facility] 03-27-2025 Instructions Susannah Clemente MD - 03/27/2025 5:41 PM EDT Screening schedule The following prevention plan is recommended: Covid-19 Vaccine( season) due on 06/18/2024 Depression Screening due on 03/28/2025 Anxiety Screening due on 03/28/2025 WHAT YOU CAN DO TO PREVENT FALLS Many falls can be prevented. By making some changes, you can lower your chances of falling. Four things YOU can do to prevent falls for you* and your caregiver 1. Begin a regular exercise program Exercise is one of the most important ways to lower your chances of falling. It makes you stronger and helps you feel better. Exercises that improve balance and coordination (like Miki Chi) are the most helpful. Lack of exercise leads to weakness and increases your chances of falling. Ask your doctor or health care provider about the best type of exercise program for you. 2. Have your health care provider review your medicines Have your doctor or pharmacist review all the medicines you take, even nrxj-aaz-[id number] medicines. As you get older, the way medicines work in your body can change. Some medicines, or combinations of medicines, can make you sleepy or dizzy and can cause you to fall. 3. Have your vision checked Have your eyes checked by an eye doctor at least once a year. You may be wearing the wrong glasses or have a condition like glaucoma or cataracts that limits your vision. Poor vision can increase your chances of falling. 4. Make your home safer About half of all falls happen at home. To make your home safer: Remove things you can trip over (like papers, books, clothes, and shoes) from stairs and places where you walk. Remove small throw rugs or use double-sided tape to keep the rugs from slipping. Keep items you use often in cabinets you can reach easily without using a step stool. Have grab bars put in next to your toilet and in the tub or shower. Use non-slip mats in the bathtub and on shower floors. Improve the lighting in your home. As you get older, you need brighter lights to see well. Hang light-weight curtains or shades to reduce glare. Have handrails and lights put in on all staircases. Wear shoes both inside and outside the house. Avoid going barefoot or wearing slippers. For more information, contact: Centers for Disease Control and Prevention www.cdc.gov/injury * This information may not apply if you have certain medical conditions. documented in this encounter [facility] 03-27-2025 Note HNO ID: [id number] Author: SUSANNAH CLEMENTE MD Service: ? Author Type: Physician Type: Progress Notes Filed: 03/27/2025 17:41 Note Text: Zenaida Evans is a 89 year old female here for a Medicare wellness visit. Recording using [employer] software for draft documentation of the visit was discussed with the patient/authorized fraud representative; all questions welcomed and answered. Patient/authorized fraud representative agreed to proceed Zenaida Evans is a 89-year-old female with a history of heart failure, presenting for evaluation of recent episodes of chest pressure, dyspnea, and fatigue. Zenaida reports experiencing two episodes of chest pressure, dyspnea, and fatigue over the past few weeks, similar to previous heart failure symptoms. These episodes lasted a couple of days each and resolved spontaneously. She describes the chest pressure as a heavy feeling and notes significant fatigue, stating she could hardly move and felt completely washed out at night. These symptoms were not associated with any specific activities and occurred during routine tasks such as laundry and dishes. She denies any recent changes in weight, which has remained stable between 129-132 lbs. She is currently taking indapamide and has not used Lasix recently (in years). Zenaida also mentions a previous episode in July where she experienced severe fatigue and difficulty walking during a meeting in [facility]. A stress test was performed in July following this event, which showed her heart rate only reached 79% of the maximum, but no ischemia was detected. She has a follow-up appointment with her power plant manager, Dr. Bauitsta, next week and an echocardiogram scheduled for the . Additionally, Zenaida reports intermittent abdominal discomfort, reminiscent of symptoms from 3-5 years ago when she was frequently hospitalized. She had a scope in 2019 revealing a 1 cm hiatal hernia and a CT scan showing possible gastric mass and wall thickening. An MRI in September 2023 identified a pancreatic cystic lesion. She denies current issues with collagenous colitis, which has been asymptomatic for the past 4-5 years. Zenaida is also dealing with significant stress due to her daughter's recent surgeries for ovarian and pancreatic cancer, and the of her best friend of 70 years in January. She mentions her 's recent TAVR surgery, which went well, but his medical problems add to her overall stress. She is considering the Grail test for cancer screening and has a history of breast cancer from 12 years ago. She is due for a mammogram and has standing orders for CBC and BMP every 3 months. She also needs refills for labetalol and clonidine. She denies any current skin issues and has no recent surgical history since her left hand surgery in 2020. She reports good vision but acknowledges needing audiology referral for hearing issues. Blood pressure's at home better. 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) Latest Ref Rng AND Units 02/01/2025 06/24/2024 11/02/2023 BMP Glucose 74 - 99 mg/dL 102 100 82 BUN 7 - 21 mg/dL 43 30 31 Creatinine 0.58 - 0.96 mg/dL 1.38 1.34 1.42 Sodium 136 - 144 mmol/L 139 144 145 Potassium 3.7 - 5.1 mmol/L 4.7 4.6 4.7 Chloride 98 - 107 mmol/L 104 106 105 CO2 22 - 30 mmol/L 28 27 26 Anion Gap 8 - 15 mmol/L 7 11 14 Calcium 8.5 - 10.2 mg/dL 9.9 9.6 10.4 EGFR >=60 mL/min/1.73m? 37 38 36 Kidney function has been stable. Hemoglobin (g/dL) Date Value 02/01/2025 11.0 12/08/2021 10.5 Hematocrit (%) Date Value 02/01/2025 33.2 12/08/2021 31.4 WBC (k/uL) Date Value 02/01/2025 4.29 12/08/2021 4.18 Platelet Count (k/uL) Date Value 02/01/2025 150 12/08/2021 200 Medicare Health Risk Assessment General Health Good Exercise: Minutes/Day 50 min Exercise: Days/Week 3 days Alcohol: Daily Use Never Alcohol: Drinks/Day Patient does not drink Alcohol: 6 or more drinks Never Feel off balance Yes Concerns: Teeth/Dentures No Concerns: Sexual function Decline Troubled by feelings Stressed Frequency: Eating healthy diet More than half the days ADLs requiring help Grocery shopping Safety precautions in home/vehicle Yes Smoke, vape, chews tobacco No Difficulty hearing Yes Difficulty seeing No Current Providers Specialists: I have reviewed specialist-related care of the patient in the medical record. Dr. Bautista Cardiology Dr. Candace Manning hand Alicia Hylton, Breast Psychology Abena Melchor when daughter was sick [facility]/Family history review Reviewed and updated problem list, medical/surgical/family/social history, medications, and allergies. FAMILY HISTORY Problem Relation Age of Onset Alzheimer's Disease Mother hypertension/stroke d89 Hypertension Mother Stroke Mother Heart Father heart failure, d 72 other (emphseyma) Sister d 59 other (healthy) Daughter Pancreati (more content not included)... [facility] 03-27-2025 History of Presen t illness Narrative Images from the original note were not included. Zenaida Evans is a 89 year old female here for a Medicare wellness visit. Recording using [employer] software for draft documentation of the visit was discussed with the patient/authorized fraud representative; all questions welcomed and answered. Patient/authorized fraud representative agreed to proceed Zenaida Evans is a 89-year-old female with a history of heart failure, presenting for evaluation of recent episodes of chest pressure, dyspnea, and fatigue. Zenaida reports experiencing two episodes of chest pressure, dyspnea, and fatigue over the past few weeks, similar to previous heart failure symptoms. These episodes lasted a couple of days each and resolved spontaneously. She describes the chest pressure as a heavy feeling and notes significant fatigue, stating she could hardly move and felt completely washed out at night. These symptoms were not associated with any specific activities and occurred during routine tasks such as laundry and dishes. She denies any recent changes in weight, which has remained stable between 129-132 lbs. She is currently taking indapamide and has not used Lasix recently (in years). Zenaida also mentions a previous episode in July where she experienced severe fatigue and difficulty walking during a meeting in [facility]. A stress test was performed in July following this event, which showed her heart rate only reached 79% of the maximum, but no ischemia was detected. She has a follow-up appointment with her power plant manager, Dr. Bautista, next week and an echocardiogram scheduled for the . Additionally, Zenaida reports intermittent abdominal discomfort, reminiscent of symptoms from 3-5 years ago when she was frequently hospitalized. She had a scope in 2019 revealing a 1 cm hiatal hernia and a CT scan showing possible gastric mass and wall thickening. An MRI in September 2023 identified a pancreatic cystic lesion. She denies current issues with collagenous colitis, which has been asymptomatic for the past 4-5 years. Zenaida is also dealing with significant stress due to her daughter's recent surgeries for ovarian and pancreatic cancer, and the of her best friend of 70 years in January. She mentions her 's recent TAVR surgery, which went well, but his medical problems add to her overall stress. She is considering the Grail test for cancer screening and has a history of breast cancer from 12 years ago. She is due for a mammogram and has standing orders for CBC and BMP every 3 months. She also needs refills for labetalol and clonidine. She denies any current skin issues and has no recent surgical history since her left hand surgery in 2020. She reports good vision but acknowledges needing audiology referral for hearing issues. Blood pressure's at home better. Anemia due to stage 3b chronic kidney disease (HCC) ([facility]) Latest Ref Rng & Units 02/01/2025 06/24/2024 11/02/2023 BMP Glucose 74 - 99 mg/dL 102 100 82 BUN 7 - 21 mg/dL 43 30 31 Creatinine 0.58 - 0.96 mg/dL 1.38 1.34 1.42 Sodium 136 - 144 mmol/L 139 144 145 Potassium 3.7 - 5.1 mmol/L 4.7 4.6 4.7 Chloride 98 - 107 mmol/L 104 106 105 CO2 22 - 30 mmol/L 28 27 26 Anion Gap 8 - 15 mmol/L 7 11 14 Calcium 8.5 - 10.2 mg/dL 9.9 9.6 10.4 EGFR >=60 mL/min/1.73m 37 38 36 Kidney function has been stable. Hemoglobin (g/dL) Date Value 02/01/2025 11.0 12/08/2021 10.5 Hematocrit (%) Date Value 02/01/2025 33.2 12/08/2021 31.4 WBC (k/uL) Date Value 02/01/2025 4.29 12/08/2021 4.18 Platelet Count (k/uL) Date Value 02/01/2025 150 12/08/2021 200 Medicare Health Risk Assessment General Health Good Exercise: Minutes/Day 50 min Exercise: Days/Week 3 days Alcohol: Daily Use Never Alcohol: Drinks/Day Patient does not drink Alcohol: 6 or more drinks Never Feel off balance Yes Concerns: Teeth/Dentures No Concerns: Sexual function Decline Troubled by feelings Stressed Frequency: Eating healthy diet More than half the days ADLs requiring help Grocery shopping Safety precautions in home/vehicle Yes Smoke, vape, chews tobacco No Difficulty hearing Yes Difficulty seeing No Current Providers Specialists: I have reviewed specialist-related care of the patient in the medical record. Dr. Bautista Cardiology Dr. Candace Manning [facility] Alicia Hylton, Breast Psychology Abena Melchor when daughter was sick [facility] GI Medical/Family history review Reviewed and updated problem list, medical/surgical/family/social history, medications, and allergies. FAMILY HISTORY Problem Relation Age of Onset Alzheimer's Disease Mother hypertension/stroke d89 Hypertension Mother Stroke Mother Heart Father heart failure, d 72 other (emphseyma) Sister d 59 other (healthy) Daughter Pancreatic Cancer Daughter 65 Ovarian cancer Daughter other (healthy) Son Breast Cancer Maternal Aunt Opioid use review Opioid Medications (last 90 days) No data to display Anxiety/Depression screening PHQ-2 Score: 0 (Lower risk for depression) Recommendation: no further intervention at this time Cognitive screening Mini Cog Score: 4 Cognitive screening reviewed and No further action needed (score 3-5). Functional Observation Was the patient's Timed Up & Go test unsteady or >= 12 seconds? No Advance Care Planning Surrogate decision maker and/or advance care plan documented As on file with and then daughter. Stress echo 07/2024. CONCLUSIONS: - Exam indication: Shortness of Breath - The exercise stress echo was negative for ischemia at 79 % of MPHR (4.3 METS). - The left ventricle is normal in size. Left ventricular systolic function is normal. EF = 57 5% (2D biplane) Grade I left ventricular diastolic dysfunction. - The right ventricle is normal in size. Right ventricular systolic function is normal. - Mild aortic regurgitation. Constitutional: (+) fatigue, (-) weight fluctuation Eyes: (-) vision changes Ears/Nose/Mouth/Throat: (+) hearing difficulty Cardiovascular: (+) chest heaviness, (+) chest pressure, (+) peripheral edema Respiratory: (+) shortness of breath Gastrointestinal: (-) constipation Skin: (-) skin changes Psychiatric: (+) stress Measurements BP 146/78 Pulse 62 Temp 36.4 C (97.6 F) (Oral) Ht 167.6 cm (5' 6) Wt 60.4 kg (133 lb 2.5 oz) SpO2 97% BMI 21.49 kg/m Home blood pressure 139/71 today Vision Screening: Follows with optometry/ophthalmology General: No acute distress. no carotid bruits cv rrr without mrg lungs ctab ext trace edema with varicosities. + epigastric tenderness without rebound or guarding. Impression: - Z-line regular, 39 cm from the incisors. - 1 cm hiatal hernia. - Normal stomach. - Normal examined duodenum. - No specimens collected. Impression IMPRESSION: Possible gastric mass and wall thickening as described. Direct visualization recommended. Right renal cyst. 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 None have high risk/worrisome MR features. No further follow-up needed at this size/age. Common bile duct measures upper limit of normal for age without obstructing stone or mass. Caliber is similar over multiple prior studies since at least 2009. 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 Stress test in July showed heart rate only reached 79% of maximum, but no ischemia was detected. Scheduled echocardiogram on the . Continue indapamide; no recent use of Lasix due to stable weight. Prescribed nitroglycerin to be used prn for chest pressure. Follow-up with cardiology next week. ? Referred epigastric etiology. Recommend follow up mrcp below and follow up with GI. # Anemia due to stage 3b chronic kidney disease (HCC) (N18.32) # 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 disease, or chronic kidney disease (HCC) (I13.0) - Hemoglobin stable at 11 g/dL. Kidney function stable with GFR 36-38 mL/min. Continue current management. Standing orders for CBC and BMP every 3 months; expires in January. 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 # Medicare annual wellness visit, subsequent (Z00.00) - Advance directive reviewed; and Bernadette daughter. listed as durable power of trade mark attorney for health care. Discussed COVID booster; advised to separate from flu vaccine due to increased risk of stroke in older adults (will await recommendations in the fall). Follow-up in 6 months. Up to date on bone density. # Epigastric pain (R10.13) - Episodes of epigastric pain reminiscent of previous symptoms. Ordered follow-up MRI of the pancreas to evaluate pancreatic cystic lesion. Recommend schedule follow-up with Dr. Gomez. # Collagenous colitis (K52.831) - No current issues reported; condition has been stable for the past 4-5 years per patient. # Pancreatic cyst (HCC) (K86.2) - Previous MRI in September 2023 showed pancreatic cystic lesion Ordered follow-up MRI to monitor the lesion. # Essential hypertension (I10) - Blood pressures well-controlled at home. Continue current medications: labetalol and clonidine. Refills provided. Return in about 6 months (around 09/26/2025). Susannah Clemente MD documented in this encounter [facility] 02-05-2025 Telephone encounter Note Pt returning call, Results and recommendations reviewed with Understanding [facility] 02-05-2025 Miscellaneous Notes Pt returning call, Results and recommendations reviewed with Understanding documented in this encounter [facility] 01-19-2025 Telephone encounter Note Mailed to patient [facility] 01-19-2025 Miscellaneous Notes Mailed to patient Order placed, please inform patient Spoke with patient and stated that this was ordered in the past by Ruby Hurts and to use the DX on the previous order. Last order was 10/04/2023. Left message for patient to return call. Message can be given upon returned call. Please find out reason for patient wanting medical massage as the order requires a diagnosis Tommy is calling Susannah Clemente MD today to request Orders (Medical Massage) Patient has been identified by name and birthdate. Duration of symptoms: N/A Person calling: spouse: Tommy Call patient at: [phone] (home) [phone] (cell) Was an appointment scheduled: Closing statement: Juliet Maciel documented in this encounter [facility] 01-19-2025 Telephone encounter Note Order placed, please inform patient [facility] 01-19-2025 Telephone encounter Note Spoke with patient and stated that this was ordered in the past by Ruby Hurst and to use the DX on the previous order. Last order was 10/04/2023. [facility] 01-17-2025 Telephone encounter Note Left message for patient to return call. Message can be given upon returned call. [facility] 01-16-2025 Telephone encounter Note Please find out reason for patient wanting medical massage as the order requires a diagnosis [facility] 01-15-2025 Telephone encounter Note Tommy is calling Susananh Clemente MD today to request Orders (Medical Massage) Patient has been identified by name and birthdate. Duration of symptoms: N/A Person calling: spouse: Tommy Call patient at: [phone] (home) [phone] (cell) Was an appointment scheduled: Closing statement: Juliet Maciel [facility] Work Phone: 01-09-2025 Note Addended by: JOANIE HOUSE on: 01/09/2025 03:30 PM Modules accepted: Orders [facility] 03-25-2025 Miscellaneous Notes Addended by: JOANIE HOUSE on: 01/09/2025 03:30 PM Modules accepted: Orders Please see Pt Mychart message Last visit 07/26/24 Please approve prescription and any additional refills and e-script to designated pharmacy. Thank you, Leatha Levin Refills available documented in this encounter [facility] 01-08-2025 Telephone encounter Note Patient is requesting from [employer]: Refills as follows: Requested Prescriptions Pending Prescriptions Disp Refills cloNIDine TTS (CATAPRES-TTS) 0.1 mg/24 hr 12 Patch 1 Sig: Apply 1 Patch as directed one time a week. Please review and advise. Last office visit 07/03/2024 Future office visit 03/27/2025 [facility] 01-08-2025 Miscellaneous Notes Patient is requesting from [employer]: Refills as follows: Requested Prescriptions Pending Prescriptions Disp Refills cloNIDine TTS (CATAPRES-TTS) 0.1 mg/24 hr 12 Patch 1 Sig: Apply 1 Patch as directed one time a week. Please review and advise. Last office visit 07/03/2024 Future office visit 03/27/2025 documented in this encounter [facility] 01-08-2025 Telephone encounter Note Please see Pt Mychart message Last visit 07/26/24 Please approve prescription and any additional refills and e-script to designated pharmacy. Thank you, Leatha Levin [facility] 01-05-2025 Telephone encounter Note Refills available [facility] 11-16-2024 Telephone encounter Note Patient returned phone call and stated she will do the test, she stated thank you for the reminder, she appreciates the doctor remembering this. [facility] 11-16-2024 Miscellaneous Notes Patient returned phone call and stated she will do the test, she stated thank you for the reminder, she appreciates the doctor remembering this. Left message for patient to return call. Message can be given upon returned call Recommend follow up complete blood count to keep an eye on blood counts. Order placed. documented in this encounter [facility] 11-15-2024 Telephone encounter Note Left message for patient to return call. Message can be given upon returned call [facility] 11-15-2024 Telephone encounter Note Recommend follow up complete blood count to keep an eye on blood counts. Order placed. [facility] 10-24-2024 Telephone encounter Note Appt made 04/07/25 and pt placed on wait list [facility] 10-24-2024 Miscellaneous Notes Appt made 04/07/25 and pt placed on wait list Zenaida is calling Susannah Clemente MD today regarding the cancelled Medicare Wellness Visit that was cancelled and no appointments available until October of [address] Clemente, per patient she only wants to see PCP and declined scheduling with any other providers. Please call patient to assist with rescheduling with PCP Patient has been identified by name and birthdate. NOTE: patient is also requesting an order for a mammogram Person calling: self Call patient at: at home [phone] (home) verified as best number per patient Was an appointment scheduled: No Closing statement: Results or non-symptom based questions: Thank you for calling [facility], your call will be returned within the next business day. Johana Kathleen documented in this encounter [facility] 10-24-2024 Telephone encounter Note Zenaida is calling Susannah Clemente MD today regarding the cancelled Medicare Wellness Visit that was cancelled and no appointments available until October of [address] Clemente, per patient she only wants to see PCP and declined scheduling with any other providers. Please call patient to assist with rescheduling with PCP Patient has been identified by name and birthdate. NOTE: patient is also requesting an order for a mammogram Person calling: self Call patient at: at home [phone] (home) verified as best number per patient Was an appointment scheduled: No Closing statement: Results or non-symptom based questions: Thank you for calling [facility], your call will be returned within the next business day. Johana Kathleen [facility] 10-09-2024 Telephone encounter Note [facility] Refills as follows: Requested Prescriptions Pending Prescriptions Disp Refills labetalol (TRANDATE) 200 mg tablet 180 tablet 1 Sig: Take 1 tablet by mouth two times a day. Please review and advise. Last office visit 07/03/2024 Future office visit 11/09/2024 [facility] 10-09-2024 Miscellaneous Notes [facility] Refills as follows: Requested Prescriptions Pending Prescriptions Disp Refills labetalol (TRANDATE) 200 mg tablet 180 tablet 1 Sig: Take 1 tablet by mouth two times a day. Please review and advise. Last office visit 07/03/2024 Future office visit 11/09/2024 documented in this encounter [facility] 08-30-2024 Telephone encounter Note Call from patient requesting refill. Requested Prescriptions Pending Prescriptions Disp Refills indapamide (LOZOL) 1.25 mg tablet 90 tablet 3 Sig: Take 1 tablet by mouth once daily. Patient last seen 03/30/24 Dominguez Roach [facility] 08-30-2024 Miscellaneous Notes Call from patient requesting refill. Requested Prescriptions Pending Prescriptions Disp Refills indapamide (LOZOL) 1.25 mg tablet 90 tablet 3 Sig: Take 1 tablet by mouth once daily. Patient last seen 03/30/24 Dominguez Roach documented in this encounter [facility] 08-29-2024 Telephone encounter Note NOV 11/09/24 SOL 07/13/24 Patient electronically sent a request for the following prescription(s) Requested Prescriptions Pending Prescriptions Disp Refills cloNIDine TTS (CATAPRES-TTS) 0.1 mg/24 hr 12 Patch 3 Sig: Apply 1 Patch as directed one time a week. labetalol (TRANDATE) 200 mg tablet 180 tablet 0 Sig: Take 1 tablet by mouth two times a day. Patient aware RX will be sent to pharmacy. No need to notify patient. Please review. Tess Natarajan MA [facility] 08-29-2024 Miscellaneous Notes NOV 11/09/24 SOL 07/13/24 Patient electronically sent a request for the following prescription(s) Requested Prescriptions Pending Prescriptions Disp Refills cloNIDine TTS (CATAPRES-TTS) 0.1 mg/24 hr 12 Patch 3 Sig: Apply 1 Patch as directed one time a week. labetalol (TRANDATE) 200 mg tablet 180 tablet 0 Sig: Take 1 tablet by mouth two times a day. Patient aware RX will be sent to pharmacy. No need to notify patient. Please review. Tess Natarajan MA documented in this encounter [facility] 07-26-2024 Instructions Joanie House MD - 07/26/2024 2:09 PM EDT A/P: Zenaida Evans is a 89 year old female, post breast cancer, off anastrozole for over a year, hypothyroidism 1. 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 Hypovitaminosis D 3. Seborrheic dermatitis - controlled 4.Breast cancer treated And on antiestrogen 5. 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 Seborrheic keratoses 7. Verruca vulgaris left cheek 8. Low RBC ct and Hct 9. HFpEF, HTN, Hx of palpitations 10. CKD stage 3b Plan: Continue: - Oral minoxidil 1.25 mg daily - Hairmax 2-3 times per week - Vitamin D 2000 units daily - Ketoconazole shampoo twice a week - Ok to use Hair Free for unwanted hair (contains thioglycolate/guar gum) 11. Neoplasm of uncertain behavior, right cheek 12. Hx of NMSC -Differential includes NMSC vs ISK -Shave biopsy performed today, as below. -Wound care instructions provided to patient -Will notify patient with results and arrange for appropriate definitive treatment, if indicated. Shave biopsy of lesion to establish and confirm diagnosis: UNIVERSAL PROTOCOL / SAFETY CHECKLIST Procedure to be Performed: Shave biopsy Sign In: A Moment of CARE was completed. Personnel directly involved with the procedure wore the appropriate PPE (Personal Protective Equipment). Patient/Surrogate Stated/Verified: PATIENT VERIFIED(optional for EMERGENT procedures): Patient name, Date of , Relevant allergies, and The intended procedure Time Out Communication: Intended patient and procedure match the source documents. Consent documented and matches the intended procedure. Relevant labs, photos, and/or imaging studies have been reviewed. Correct side/site marked and visible. Sign Out: SIGN OUT (optional for EMERGENT procedures): All specimen containers correctly labeled. All instruments, equipment, possible retained foreign bodies accounted for. Joanie House MD Photo taken: Yes Risks, benefits, alternatives and personnel required for shave biopsy reviewed with patient. Patient and provider agree as to site(s) to be biopsied. Patient verbalizes understanding and wishes to proceed. Site(s) prepped with alcohol and anesthetized with 1% lidocaine with epinephrine. Shave biopsy of lesion(s) performed to the level of the dermis/epidermis The following was sent for histologic evaluation: LESION #1 R/O: NMSC LOC OF LESION: right cheek SIZE: 1 x 0.9 CM EBL: scant Hemostasis with aluminum chloride and direct pressure, and a bandage is applied Written and verbal wound care instructions provided to patient, understanding verbalized. 13. Photoaging of skin - Dr. Choudhary recommends filler and botox - Attempted to get in with Dr. Kohli but could not - Recommend seeing Dr. Yudi Lee as she is taking new patients RTC: 4-5 months WOUND CARE FOR BIOPSIES 1.) Keep the wound clean, dry and bandaged the day of the procedure. 2.) You may shower in 24 hours. Remove the bandage. Wash gently with soap and water. Do not rub the wound, just let the soap and water run down. Pat the wound dry. 3.) Use Vaseline or Aquaphor twice daily. You can cover the areas with a bandage for the first few days after applying Vaseline. 4.) You may experience some pain, redness and swelling after your procedure. If these symptoms persist for more than a few days or become worse, please call the office. documented in this encounter [facility] 07-26-2024 History of Presen t illness Narrative Est Patient LV: 02/18/23 CC: TE/[facility] Zenaida Evans is a 89 year old female here to follow up on her TE/[facility] -hair is improved no itching burning or pain on the scalp -not much shedding -no longer taking Biotin forte -responding LDOM with increased density and is very satisfied - thyroid within normal limits. Following with [...] 03/13/2011 no retinopathy detected -both eyes - [facility] - return in 1 year - [...] Current Outpatient Medications Medication Sig Dispense Refill cephALEXin (KEFLEX) 500 mg capsule Take 1 capsule by mouth two times a day for 7 days. 14 capsule 0 labetalol (TRANDATE) 200 mg tablet Take 1 tablet by mouth two times a day. 180 tablet 0 dapagliflozin propanediol (FARXIGA) 5 mg tablet Take 1 tablet by mouth daily with breakfast. 90 tablet 1 levothyroxine (SYNTHROID) 88 mcg tablet Take 1 tablet by mouth once daily. 90 tablet 1 famotidine (PEPCID) 20 mg tablet Take 1 tablet by mouth once daily as needed. 90 tablet 2 cloNIDine TTS (CATAPRES-TTS) 0.1 mg/24 hr Apply 1 Patch as directed one time a week. 12 Patch 3 indapamide (LOZOL) 1.25 mg tablet Take 1 tablet by mouth once daily. 90 tablet 3 minoxidil (LONITEN) 2.5 mg tablet 1 TABLET DAILY 90 tablet 3 ketoconazole (NIZORAL) 2 % shampoo Use to wash face and scalp two times a week. Lather and leave in for 3-5 minutes before rinsing. 240 mL 11 furosemide (LASIX) 20 mg tablet Take 1 tablet by mouth every Wednesday,Wednesday,Wednesday (0600). 36 tablet 3 MULTIVITAMIN ORAL Take 1 tablet by mouth once daily. Melatonin 5 mg cap Take 1 capsule by mouth at bedtime as needed. biotin 5 mg tab Take 5 mg by mouth once daily. No current facility-administered medications for this visit. Latest Ref Rng 06/24/2024 WBC 3.70 - 11.00 k/uL 5.66 RBC 3.90 - 5.20 m/uL 3.61 (L) Hemoglobin 11.5 - 15.5 g/dL 11.3 (L) Hematocrit 36.0 - 46.0 % 35.9 (L) MCV 80.0 - 100.0 fL 99.4 MCH 26.0 - 34.0 pg 31.3 MCHC 30.5 - 36.0 g/dL 31.5 RDW-CV 11.5 - 15.0 % 12.5 Platelet Count 150 - 400 k/uL 172 MPV 9.0 - 12.7 fL 10.8 Neut% % 41.8 Abs Neut (ANC) 1.45 - 7.50 k/uL 2.37 Lymph% % 39.6 Abs Lymph 1.00 - 4.00 k/uL 2.24 Island% % 14.7 Abs Island <0.87 k/uL 0.83 Eosin% % 3.0 Abs Eosin <0.46 k/uL 0.17 Baso% % 0.5 Abs Baso <0.11 k/uL 0.03 Immature Gran % % 0.4 IMMATURE GRANS (ABS) <0.10 k/uL <0.03 NRBC /100 WBC 0.0 Absolute nRBC <0.01 k/uL <0.01 DTYPE Auto Glucose 74 - 99 mg/dL 100 (H) BUN 7 - 21 mg/dL 30 (H) Creatinine 0.58 - 0.96 mg/dL 1.34 (H) Sodium 136 - 144 mmol/L 144 Potassium 3.7 - 5.1 mmol/L 4.6 Chloride 98 - 107 mmol/L 106 CO2 22 - 30 mmol/L 27 Anion Gap 8 - 15 mmol/L 11 Calcium 8.5 - 10.2 mg/dL 9.6 eGFR >=60 mL/min/1.73m 38 (L) Cholesterol, Total <200 mg/dL 194 Triglyceride <150 mg/dL 84 HDL Cholesterol >39 mg/dL 78 Non HDL Cholesterol <130 mg/dL 116 Fasting Time hrs 12 VLDL Cholesterol <30 mg/dL 17 TC:HDL Ratio <5.10 2.49 LDL Cholesterol <100 mg/dL 99 LDL:HDL Ratio <2.54 1.27 Legend: (L) Low (H) High PE: General appearance: Aaox3, NAD, pleasant Skin: Skin color, texture, turgor normal Type 1 skin Patient with diffuse thinning white hair and focal areas of dark brown hair, most notable in frontal central scalp. No erythema or scaling appreciated. Density savin I Hair pull: negative No scalp scaling or redness -density improved, some dark ball roots at vertex scalp (darker than the remaining light ball hair) -eyebrows thicker bilaterally and longer -right cheek with 1 x 0.9 cm pink scaly papule A/P: Zenaida Evans is a 89 year old female 1. 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 Hypovitaminosis D 3. Seborrheic dermatitis - controlled 4.Breast cancer - treated and on antiestrogen 5. 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 Seborrheic keratoses 7. Verruca vulgaris - left cheek 8. Low RBC ct and Hct 9. HFpEF, HTN, Hx of palpitations 10. CKD stage 3b Continue: - Oral minoxidil 1.25 mg daily. Will send a message to Dr. Bautista to let him know about the oral minoxidil. - Hairmax 2-3 times per week - Vitamin D 2000 units daily - Ketoconazole shampoo twice a week - Ok to use Hair Free for unwanted hair (contains thioglycolate/guar gum) 11. Neoplasm of uncertain behavior, right cheek 12. Hx of NMSC -Differential includes NMSC vs ISK -Shave biopsy performed today, as below. -Wound care instructions provided to patient -Will notify patient with results and arrange for appropriate definitive treatment, if indicated. Shave biopsy of lesion to establish and confirm diagnosis: UNIVERSAL PROTOCOL / SAFETY CHECKLIST Procedure to be Performed: Shave biopsy Sign In: A Moment of CARE was completed. Personnel directly involved with the procedure wore the appropriate PPE (Personal Protective Equipment). Patient/Surrogate Stated/Verified: PATIENT VERIFIED(optional for EMERGENT procedures): Patient name, Date of , Relevant allergies, and The intended procedure Time Out Communication: Intended patient and procedure match the source documents. Consent documented and matches the intended procedure. Relevant labs, photos, and/or imaging studies have been reviewed. Correct side/site marked and visible. Sign Out: SIGN OUT (optional for EMERGENT procedures): All specimen containers correctly labeled. All instruments, equipment, possible retained foreign bodies accounted for. Joanie House MD Photo taken: Yes Risks, benefits, alternatives and personnel required for shave biopsy reviewed with patient. Patient and provider agree as to site(s) to be biopsied. Patient verbalizes understanding and wishes to proceed. Site(s) prepped with alcohol and anesthetized with 1% lidocaine with epinephrine. Shave biopsy of lesion(s) performed to the level of the dermis/epidermis The following was sent for histologic evaluation: LESION #1 R/O: NMSC LOC OF LESION: right cheek SIZE: 1 x 0.9 CM EBL: scant Hemostasis with aluminum chloride and direct pressure, and a bandage is applied Written and verbal wound care instructions provided to patient, understanding verbalized. 13. Photoaging of skin - Dr. Choudhary recommends filler and botox - Attempted to get in with Dr. Kohli but could not - Recommend seeing Dr. eLe as she is taking new patients RTC: 4-5 months The documentation for this note was completed by Tess Mason RN acting as scribe for Michelle Choudhary MD. July 26, 2024 1:57 PM. Joanie House MD Dermatology, PGY-4 All documentation from previous visit of 02/18/23 was copied and pasted, documentation has been reviewed and edited as necessary for today's visit. I also have reviewed and agree with the assessment and plan as stated above and agree with all of its relevant components. There were no procedures performed during this patient's visit. I agree with the Chief Complaint, ROS, and Past Histories independently gathered by the clinical application support engineer and the remaining scribed note accurately describes my personal service to the patient. I have seen and evaluated Ms. Evans as well as developed and discussed the assessment and plan with the Resident. I have reviewed the Resident's note and agree with the history and physical examination as described, as well as the assessment and plan of care. The resident's note was annotated by me as needed to reflect my direct input. I did the procedure. I spent a total of 30 minutes on the date of service preparing to see the patient, [id number] patient care, completing clinical documentation, obtaining and/or reviewing separately obtained history, performing a medically appropriate examination and counseling and educating the patient/family/caregiver Michelle Choudhary MD Patient notified of bx result, SK 07/28 Michelle Choudhary MD documented in this encounter [facility] 07-26-2024 Note HNO ID: [id number] Author: MICHELLE CHOUDHARY MD Service: ? Author Type: Physician Type: Progress Notes Filed: 08/16/2024 17:22 Note Text: Est Patient LV: 02/18/23 CC: TE/[facility] Zenaida Evans is a 89 year old female here to follow up on her TE/[facility] -hair is improved no itching burning or pain on the scalp -not much shedding -no longer taking Biotin forte -responding LDOM with increased density and is very satisfied - thyroid within normal limits. Following with [...] 03/13/2011 no retinopathy detected -both eyes - [facility] - return in 1 year - [...] Current Outpatient Medications Medication Sig Dispense Refill cephALEXin (KEFLEX) 500 mg capsule Take 1 capsule by mouth two times a day for 7 days. 14 capsule 0 labetalol (TRANDATE) 200 mg tablet Take 1 tablet by mouth two times a day. 180 tablet 0 dapagliflozin propanediol (FARXIGA) 5 mg tablet Take 1 tablet by mouth daily with breakfast. 90 tablet 1 levothyroxine (SYNTHROID) 88 mcg tablet Take 1 tablet by mouth once daily. 90 tablet 1 famotidine (PEPCID) 20 mg tablet Take 1 tablet by mouth once daily as needed. 90 tablet 2 cloNIDine TTS (CATAPRES-TTS) 0.1 mg/24 hr Apply 1 Patch as directed one time a week. 12 Patch 3 indapamide (LOZOL) 1.25 mg tablet Take 1 tablet by mouth once daily. 90 tablet 3 minoxidil (LONITEN) 2.5 mg tablet 1 TABLET DAILY 90 tablet 3 ketoconazole (NIZORAL) 2 % shampoo Use to wash face and scalp two times a week. Lather and leave in for 3-5 minutes before rinsing. 240 mL 11 furosemide (LASIX) 20 mg tablet Take 1 tablet by mouth every Wednesday,Wednesday,Wednesday (0600). 36 tablet 3 MULTIVITAMIN ORAL Take 1 tablet by mouth once daily. Melatonin 5 mg cap Take 1 capsule by mouth at bedtime as needed. biotin 5 mg tab Take 5 mg by mouth once daily. No current facility-administered medications for this visit. Latest Ref [facility] 06/24/2024 WBC 3.70 - 11.00 k/uL 5.66 RBC 3.90 - 5.20 m/uL 3.61 (L) Hemoglobin 11.5 - 15.5 g/dL 11.3 (L) Hematocrit 36.0 - 46.0 % 35.9 (L) MCV 80.0 - 100.0 fL 99.4 MCH 26.0 - 34.0 pg 31.3 MCHC 30.5 - 36.0 g/dL 31.5 RDW-CV 11.5 - 15.0 % 12.5 Platelet Count 150 - 400 k/uL 172 MPV 9.0 - 12.7 fL 10.8 Neut% % 41.8 Abs Neut (ANC) 1.45 - 7.50 k/uL 2.37 Lymph% % 39.6 Abs Lymph 1.00 - 4.00 k/uL 2.24 Island% % 14.7 Abs Island <0.87 k/uL 0.83 Eosin% % 3.0 Abs Eosin <0.46 k/uL 0.17 Baso% % 0.5 Abs Baso <0.11 k/uL 0.03 Immature Gran % % 0.4 IMMATURE GRANS (ABS) <0.10 k/uL <0.03 NRBC /100 WBC 0.0 Absolute nRBC <0.01 k/uL <0.01 DTYPE Auto Glucose 74 - 99 mg/dL 100 (H) BUN 7 - 21 mg/dL 30 (H) Creatinine 0.58 - 0.96 mg/dL 1.34 (H) Sodium 136 - 144 mmol/L 144 Potassium 3.7 - 5.1 mmol/L 4.6 Chloride 98 - 107 mmol/L 106 CO2 22 - 30 mmol/L 27 Anion Gap 8 - 15 mmol/L 11 Calcium 8.5 - 10.2 mg/dL 9.6 eGFR >=60 mL/min/1.73m? 38 (L) Cholesterol, Total <200 mg/dL 194 Triglyceride <150 mg/dL 84 HDL Cholesterol >39 mg/dL 78 Non HDL Cholesterol <130 mg/dL 116 Fasting Time hrs 12 VLDL Cholesterol <30 mg/dL 17 TC:HDL Ratio <5.10 2.49 LDL Cholesterol <100 mg/dL 99 LDL:HDL Ratio <2.54 1.27 Legend: (L) Low (H) High PE: General appearance: Aaox3, NAD, pleasant Skin: Skin color, texture, turgor normal Type 1 skin Patient with diffuse thinning white hair and focal areas of dark brown hair, most notable in frontal central scalp. No erythema or scaling appreciated. Density savin I Hair pull: negati (more content not included)... [facility] 07-17-2024 Note HNO ID: [id number] Author: DOMINGUEZ HARKINS MD Service: ? Author Type: Physician Type: Progress Notes Filed: 07/17/2024 14:24 Note Text: Patient presents with: urgency with urination: X urgency and pressure x 2 days HPI: Symptoms for 2 days. Dysuria: Yes Vaginal irritation/pruritus: she had symptoms after keflex a few weeks ago that resolved with OTC yeast medicine. Frequency: Yes Hematuria: No Nausea: No Fever or chills: No Back pain: No Abdominal pain: bladder pressure Prior UTI: Yes; most recent culture 06/26/24 grew proteus sensitive to Keflex prescribed. She has not had issues with UTIs for years and wonders if Farxiga may be contributing. MEDICATIONS: Current Outpatient Medications Medication Sig labetalol (TRANDATE) 200 mg tablet Take 1 tablet by mouth two times a day. dapagliflozin propanediol (FARXIGA) 5 mg tablet Take 1 tablet by mouth daily with breakfast. levothyroxine (SYNTHROID) 88 mcg tablet Take 1 tablet by mouth once daily. famotidine (PEPCID) 20 mg tablet Take 1 tablet by mouth once daily as needed. cloNIDine TTS (CATAPRES-TTS) 0.1 mg/24 hr Apply 1 Patch as directed one time a week. indapamide (LOZOL) 1.25 mg tablet Take 1 tablet by mouth once daily. minoxidil (LONITEN) 2.5 mg tablet 1 TABLET DAILY ketoconazole (NIZORAL) 2 % shampoo Use to wash face and scalp two times a week. Lather and leave in for 3-5 minutes before rinsing. furosemide (LASIX) 20 mg tablet Take 1 tablet by mouth every Wednesday,Wednesday,Wednesday (0600). MULTIVITAMIN ORAL Take 1 tablet by mouth once daily. Melatonin 5 mg cap Take 1 capsule by mouth at bedtime as needed. biotin 5 mg tab Take 5 mg by mouth once daily. No current facility-administered medications for this visit. ALLERGIES: ALLERGIES Allergen Reactions Scopolamine Mental Status Change Hallucinations Amlodipine Other: See Comments Significant swelling even on 2.5 mg per day. Arb-Angiotensin Rec* Contraindication-Medical Surgical Bright, hyperkalemia Hctz [Thiazides] Contraindication-Medical Surgical Hyponatremia at 12.5 mg. Hydralazine Intolerance nausea Iron GI Upset CAN TAKE SLO-IRON Jardiance [Empaglif* Diarrhea Lipitor [Atorvastat* Myalgia Losartan Other: See Comments BRIGHT with elevated potassium and creatinine. Spironolactone Intolerance Blood pressure went up Talwin [Pentazocine* Mental Status Change HALLUCINATIONS Verapamil Hcl GI Upset constipation VITALS: BP 144/84 Pulse 82 Temp 36.3 ?C (97.3 ?F) (Tympanic) Resp 18 Wt 62.1 kg (136 lb 14.5 oz) SpO2 95% BMI 22.10 kg/m? PHYSICAL EXAM: GEN: NAD HEENT: EOMI, conjunctiva clear, HEART: regular rate and rhythm, no murmurs LUNGS: clear to auscultation, no wheezes or crackles, no increased WOB ABDOMEN: Soft, nondistended, no masses, midline suprapubic pressure with palpation BACK: No CVA tenderness Latest Ref Rng 06/24/2024 eGFR >=60 mL/min/1.73m? 38 (L) ASSESSMENT/PLAN: 1. Urgency of urination - ICD9: 788.63, ICD10: R39.15 - UA DIP, URINE (POC) - AZO discoloration - URINE CULTURE Start - CEPHALEXIN 500 MG CAPSULE She may discuss risks and benefits of Farxiga with the prescribing physician. Dominguez Harkins MD [facility] 07-17-2024 History of Presen t illness Narrative Patient presents with: urgency with urination: X urgency and pressure x 2 days HPI: Symptoms for 2 days. Dysuria: Yes Vaginal irritation/pruritus: she had symptoms after keflex a few weeks ago that resolved with OTC yeast medicine. Frequency: Yes Hematuria: No Nausea: No Fever or chills: No Back pain: No Abdominal pain: bladder pressure Prior UTI: Yes; most recent culture 06/26/24 grew proteus sensitive to Keflex prescribed. She has not had issues with UTIs for years and wonders if Farxiga may be contributing. MEDICATIONS: Current Outpatient Medications Medication Sig labetalol (TRANDATE) 200 mg tablet Take 1 tablet by mouth two times a day. dapagliflozin propanediol (FARXIGA) 5 mg tablet Take 1 tablet by mouth daily with breakfast. levothyroxine (SYNTHROID) 88 mcg tablet Take 1 tablet by mouth once daily. famotidine (PEPCID) 20 mg tablet Take 1 tablet by mouth once daily as needed. cloNIDine TTS (CATAPRES-TTS) 0.1 mg/24 hr Apply 1 Patch as directed one time a week. indapamide (LOZOL) 1.25 mg tablet Take 1 tablet by mouth once daily. minoxidil (LONITEN) 2.5 mg tablet 1 TABLET DAILY ketoconazole (NIZORAL) 2 % shampoo Use to wash face and scalp two times a week. Lather and leave in for 3-5 minutes before rinsing. furosemide (LASIX) 20 mg tablet Take 1 tablet by mouth every Wednesday,Wednesday,Wednesday (0600). MULTIVITAMIN ORAL Take 1 tablet by mouth once daily. Melatonin 5 mg cap Take 1 capsule by mouth at bedtime as needed. biotin 5 mg tab Take 5 mg by mouth once daily. No current facility-administered medications for this visit. ALLERGIES: ALLERGIES Allergen Reactions Scopolamine Mental Status Change Hallucinations Amlodipine Other: See Comments Significant swelling even on 2.5 mg per day. Arb-Angiotensin Rec* Contraindication-Medical Surgical Bright, hyperkalemia Hctz [Thiazides] Contraindication-Medical Surgical Hyponatremia at 12.5 mg. Hydralazine Intolerance nausea Iron GI Upset CAN TAKE SLO-IRON Jardiance [Empaglif* Diarrhea Lipitor [Atorvastat* Myalgia Losartan Other: See Comments BRIGHT with elevated potassium and creatinine. Spironolactone Intolerance Blood pressure went up Talwin [Pentazocine* Mental Status Change HALLUCINATIONS Verapamil Hcl GI Upset constipation VITALS: BP 144/84 Pulse 82 Temp 36.3 C (97.3 F) (Tympanic) Resp 18 Wt 62.1 kg (136 lb 14.5 oz) SpO2 95% BMI 22.10 kg/m PHYSICAL EXAM: GEN: NAD HEENT: EOMI, conjunctiva clear, HEART: regular rate and rhythm, no murmurs LUNGS: clear to auscultation, no wheezes or crackles, no increased WOB ABDOMEN: Soft, nondistended, no masses, midline suprapubic pressure with palpation BACK: No CVA tenderness Latest Ref Rng 06/24/2024 eGFR >=60 mL/min/1.73m 38 (L) ASSESSMENT/PLAN: 1. Urgency of urination - ICD9: 788.63, ICD10: R39.15 - UA DIP, URINE (POC) - AZO discoloration - URINE CULTURE Start - CEPHALEXIN 500 MG CAPSULE She may discuss risks and benefits of Farxiga with the prescribing physician. Dominguez Harkins MD documented in this encounter [facility] 07-14-2024 History of Presen t illness Narrative Radiology Service Progress Note PATIENT NAME: Zenaida Evans DATE OF SERVICE: July 14, 2024 TIME: 9:21 AM PATIENT IDENTITY VERIFICATION COMPLETED USING TWO (2) IDENTIFIERS: Name and Date of confirmed by patient verbally. FALL SCREENING: Has the patient had 2 falls in the last year or 1 fall with injury or currently using an Ambulatory Assistive Device (Walker, Cane, Wheelchair, Crutches, etc.)? No PATIENT GENDER DATA: Female. status: : No status: NO. PATIENT RELEVANT IMPLANT DATA REVIEWED: Yes PATIENT PRESENTS WITH AN IMPLANTABLE OR ATTACHED CHAR CONVEYOR TENDER: No RADIOLOGY DEPARTMENT: General X-ray: Exam(s) Completed: Chest X-Ray PERIPHERAL IV DATA: Not applicable SIGNED BY: RT Russell(Renny) July 14, 2024 9:21 AM documented in this encounter [facility] 07-14-2024 Note HNO ID: [id number] Author: RAHUL ADAMS RT(Renny) Service: Radiology Author Type: Technologist Type: Progress Notes Filed: 07/14/2024 09:32 Note Text: Radiology Service Progress Note PATIENT NAME: Zenaida Evans DATE OF SERVICE: July 14, 2024 TIME: 9:21 AM PATIENT IDENTITY VERIFICATION COMPLETED USING TWO (2) IDENTIFIERS: Name and Date of confirmed by patient verbally. FALL SCREENING: Has the patient had 2 falls in the last year or 1 fall with injury or currently using an Ambulatory Assistive Device (Walker, Cane, Wheelchair, Crutches, etc.)? No PATIENT GENDER DATA: Female. status: : No status: NO. PATIENT RELEVANT IMPLANT DATA REVIEWED: Yes PATIENT PRESENTS WITH AN IMPLANTABLE OR ATTACHED CHAR CONVEYOR TENDER: No RADIOLOGY DEPARTMENT: General X-ray: Exam(s) Completed: Chest X-Ray PERIPHERAL IV DATA: Not applicable SIGNED BY: RT Russell(Renny) July 14, 2024 9:21 AM [facility] 07-13-2024 Note HNO ID: [id number] Author: ERWIN ROSALES MD Service: ? Author Type: Physician Type: Progress Notes Filed: 07/13/2024 15:01 Note Text: This note was created using Cass Artriter. Subjective Zenaida Evans is a 89 year old female. The patient is an 89-year-old female presenting with shortness of breath during physical activity. She reports this symptom manifesting while walking a moderate distance from a parking lot to a meeting, which was unusual for her, as she generally walks a mile on the treadmill without difficulty. The patient noted that the episode occurred on a flat street in [place], and this unexpected breathlessness was accompanied by a sense of inability to reach her destination. Additional stress factors include dealing with her daughter?s serious illness, which she expressed might be exacerbating her symptom due to emotional stress impacting cardiac output. The patient does have a history of congestive heart failure, which she acknowledges could be contributing to her current condition. Regular self-monitoring for fluid retention has shown a weight increase, but she attributes this to different clothing rather than a significant indication of fluid overload, as her weight remains mostly stable. Mild and consistent ankle swelling is noted, for which she takes Lasix as needed, but has not observed any major changes recently. Despite these challenges, other symptoms such as grain trader travel did not reveal further clarification on the cause. There is no significant change in her condition after walking back to the parking lot. Considering her known history of hypertensive heart and chronic kidney disease, as well as congestive heart failure, the patient remains concerned about the implications of this new symptom. REVIEW OF SYSTEMS: Objective BP 165/82 Pulse 63 Temp 36.8 ?C (98.2 ?F) Resp 20 Wt 62.3 kg (137 lb 5.6 oz) SpO2 97% BMI 22.17 kg/m? - Cardiovascular: Reports shortness of breath during physical activity; Denies changes in regular ankle swelling - General: Denies significant weight increase due to fluid retention - Cardiovascular: Heart sounds normal with regular rhythm, no murmurs, rubs, or gallops. - Pulmonary/Chest: Lungs clear to auscultation. 1. 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 It is important to monitor her condition closely, given her history of congestive heart failure and chronic kidney disease. Current management includes regular use of Lasix for fluid management and monitoring weight to detect potential fluid retention. As tests have been ordered previously, it is advised to await these results to further assess cardiac function and kidney status. No additional diagnostic testing or acute alterations to therapeutic management were deemed necessary at this visit. Continue with plan of CXR tomorrow and stress test in early July. She will go to ED for recurrences. 2. Congestive Heart Failure (): No acute signs indicating worsening heart failure were discovered during the examination. Weight remains stable with current management strategies, including the use of diuretics as needed. The patient?s report of shortness of breath, despite stress, does not on its own suggest acute heart failure exacerbation; however, ongoing evaluation and monitoring will be important. It is imperative to continue current management strategies and reassess post upcoming tests to determine any necessary modifications to her treatment plan. [facility] 07-13-2024 History of Presen t illness Narrative This note was created using Ibelemter. Subjective Zenaida Evans is a 89 year old female. The patient is an 89-year-old female presenting with shortness of breath during physical activity. She reports this symptom manifesting while walking a moderate distance from a parking lot to a meeting, which was unusual for her, as she generally walks a mile on the treadmill without difficulty. The patient noted that the episode occurred on a flat street in [place], and this unexpected breathlessness was accompanied by a sense of inability to reach her destination. Additional stress factors include dealing with her daughter s serious illness, which she expressed might be exacerbating her symptom due to emotional stress impacting cardiac output. The patient does have a history of congestive heart failure, which she acknowledges could be contributing to her current condition. Regular self-monitoring for fluid retention has shown a weight increase, but she attributes this to different clothing rather than a significant indication of fluid overload, as her weight remains mostly stable. Mild and consistent ankle swelling is noted, for which she takes Lasix as needed, but has not observed any major changes recently. Despite these challenges, other symptoms such as grain trader travel did not reveal further clarification on the cause. There is no significant change in her condition after walking back to the parking lot. Considering her known history of hypertensive heart and chronic kidney disease, as well as congestive heart failure, the patient remains concerned about the implications of this new symptom. REVIEW OF SYSTEMS: Objective BP 165/82 Pulse 63 Temp 36.8 C (98.2 F) Resp 20 Wt 62.3 kg (137 lb 5.6 oz) SpO2 97% BMI 22.17 kg/m - Cardiovascular: Reports shortness of breath during physical activity; Denies changes in regular ankle swelling - General: Denies significant weight increase due to fluid retention - Cardiovascular: Heart sounds normal with regular rhythm, no murmurs, rubs, or gallops. - Pulmonary/Chest: Lungs clear to auscultation. 1. 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 It is important to monitor her condition closely, given her history of congestive heart failure and chronic kidney disease. Current management includes regular use of Lasix for fluid management and monitoring weight to detect potential fluid retention. As tests have been ordered previously, it is advised to await these results to further assess cardiac function and kidney status. No additional diagnostic testing or acute alterations to therapeutic management were deemed necessary at this visit. Continue with plan of CXR tomorrow and stress test in early July. She will go to ED for recurrences. 2. Congestive Heart Failure (): No acute signs indicating worsening heart failure were discovered during the examination. Weight remains stable with current management strategies, including the use of diuretics as needed. The patient s report of shortness of breath, despite stress, does not on its own suggest acute heart failure exacerbation; however, ongoing evaluation and monitoring will be important. It is imperative to continue current management strategies and reassess post upcoming tests to determine any necessary modifications to her treatment plan. documented in this encounter [facility] 07-12-2024 Telephone encounter Note Offered next day appointment with Dr. Rosales, patient states that she sees Dr. Bautista at [facility]. Advised her to call his office and I would forward to his office. Reason for Disposition [1] MILD difficulty breathing (e.g., minimal/no SOB at rest, SOB with walking, pulse <100) AND [2] NEW-onset or WORSE than normal Answer Assessment - Initial Assessment Questions 1. RESPIRATORY STATUS: Describe your breathing? (e.g., wheezing, shortness of breath, unable to speak, severe coughing) Mammoth SOB and chest heaviness for the first time on Wednesday, before walking one block. She walked from [address] to [address] and later in the day walked back. She had to take multiple breaks (standing and sitting). 2. ONSET: When did this breathing problem begin? Wednesday 3. PATTERN Does the difficult breathing come and go, or has it been constant since it started? Happened 4. SEVERITY: How bad is your breathing? (e.g., mild, moderate, severe) - MILD: No SOB at rest, mild SOB with walking, speaks normally in sentences, can lie down, no retractions, pulse < 100. - MODERATE: SOB at rest, SOB with minimal exertion and prefers to sit, cannot lie down flat, speaks in phrases, mild retractions, audible wheezing, pulse 100-120. - SEVERE: Very SOB at rest, speaks in single words, struggling to breathe, sitting hunched forward, retractions, pulse > 120 Mild to Moderate; episodic with exertion. 5. RECURRENT SYMPTOM: Have you had difficulty breathing before? If Yes, ask: When was the last time? and What happened that time? It happened again on Wednesday with short stint of yard work, after walking up the slope in their yard - but not as pronounced as on Wednesday. 6. CARDIAC HISTORY: Do you have any history of heart disease? (e.g., heart attack, angina, bypass surgery, angioplasty) CHF, SVT, HTN 7. LUNG HISTORY: Do you have any history of lung disease? (e.g., pulmonary embolus, asthma, emphysema) Pleural effusion 8. CAUSE: What do you think is causing the breathing problem? Unknown. Normally she can out walk her whole family. 9. OTHER SYMPTOMS: Do you have any other symptoms? (e.g., dizziness, runny nose, cough, chest pain, fever) denies 10. O2 SATURATION MONITOR: Do you use an oxygen saturation monitor (pulse oximeter) at home? If Yes, ask: What is your reading (oxygen level) today? What is your usual oxygen saturation reading? (e.g., 95%) N/a 11. : Is there any chance you are ? When was your last menstrual period? N/a 12. TRAVEL: Have you traveled out of the country in the last month? (e.g., travel history, exposures) denies Protocols used: Breathing [id number] [facility] 07-12-2024 Miscellaneous Notes Offered next day appointment with Dr. Rosales, patient states that she sees Dr. Bautista at [facility]. Advised her to call his office and I would forward to his office. Reason for Disposition [1] MILD difficulty breathing (e.g., minimal/no SOB at rest, SOB with walking, pulse <100) AND [2] NEW-onset or WORSE than normal Answer Assessment - Initial Assessment Questions 1. RESPIRATORY STATUS: Describe your breathing? (e.g., wheezing, shortness of breath, unable to speak, severe coughing) Mammoth SOB and chest heaviness for the first time on Wednesday, before walking one block. She walked from [address] to [address] and later in the day walked back. She had to take multiple breaks (standing and sitting). 2. ONSET: When did this breathing problem begin? Wednesday 3. PATTERN Does the difficult breathing come and go, or has it been constant since it started? Happened 4. SEVERITY: How bad is your breathing? (e.g., mild, moderate, severe) - MILD: No SOB at rest, mild SOB with walking, speaks normally in sentences, can lie down, no retractions, pulse < 100. - MODERATE: SOB at rest, SOB with minimal exertion and prefers to sit, cannot lie down flat, speaks in phrases, mild retractions, audible wheezing, pulse 100-120. - SEVERE: Very SOB at rest, speaks in single words, struggling to breathe, sitting hunched forward, retractions, pulse > 120 Mild to Moderate; episodic with exertion. 5. RECURRENT SYMPTOM: Have you had difficulty breathing before? If Yes, ask: When was the last time? and What happened that time? It happened again on Wednesday with short stint of yard work, after walking up the slope in their yard - but not as pronounced as on Wednesday. 6. CARDIAC HISTORY: Do you have any history of heart disease? (e.g., heart attack, angina, bypass surgery, angioplasty) CHF, SVT, HTN 7. LUNG HISTORY: Do you have any history of lung disease? (e.g., pulmonary embolus, asthma, emphysema) Pleural effusion 8. CAUSE: What do you think is causing the breathing problem? Unknown. Normally she can out walk her whole family. 9. OTHER SYMPTOMS: Do you have any other symptoms? (e.g., dizziness, runny nose, cough, chest pain, fever) denies 10. O2 SATURATION MONITOR: Do you use an oxygen saturation monitor (pulse oximeter) at home? If Yes, ask: What is your reading (oxygen level) today? What is your usual oxygen saturation reading? (e.g., 95%) N/a 11. : Is there any chance you are ? When was your last menstrual period? N/a 12. TRAVEL: Have you traveled out of the country in the last month? (e.g., travel history, exposures) denies Protocols used: Breathing [id number] Vm left to call and speak with a nurse Images from the original note were not included. LM for patient to call back Scheduled patient for appointment tomorrow at 910 with Jose please triage and ask patient if she wants appointment tomorrow Zenaida [facility] (supporting Susannah Clemente MD)1 minute ago (2:09 PM) Cristino Clemente: I thought I should report a recent issue which could be heart related. On Wednesday I was attending a conference in [place]. Because it started early I couldn't find an open parking garage near by so I parked at [address] and walked to the conference site at the [employer] on . I found very quickly that I was having a heavy feeling in the chest and difficulty breathing. I had to take frequent breaks to get there. I had never had that reaction before to walking and was surprised as I routinely use the treadmill at the [employer] and do a mile or so at 3m with no great effort. The same response occurred on my return to the parking area. I was concerned but felt fine the next day and since. I did book the stress echo for the Jul. I wonder if this could be a reaction to the stress of my daughter's cancer diagnosis. Thanks, Zenaida Evans documented in this encounter [facility] 07-11-2024 Telephone encounter Note Vm left to call and speak with a nurse [facility] 07-11-2024 Telephone encounter Note Images from the original note were not included. LM for patient to call back Scheduled patient for appointment tomorrow at 910 with Jose please triage and ask patient if she wants appointment tomorrow Zenaida [facility] (supporting Susannah Clemente MD)1 minute ago (2:09 PM) Cristino Clemente: I thought I should report a recent issue which could be heart related. On Wednesday I was attending a conference in [place]. Because it started early I couldn't find an open parking garage near by so I parked at [address] and walked to the conference site at the [facility] on [address] I found very quickly that I was having a heavy feeling in the chest and difficulty breathing. I had to take frequent breaks to get there. I had never had that reaction before to walking and was surprised as I routinely use the treadmill at the [employer] and do a mile or so at 3mph with no great effort. The same response occurred on my return to the parking area. I was concerned but felt fine the next day and since. I did book the stress echo for the Jul. I wonder if this could be a reaction to the stress of my daughter's cancer diagnosis. Thanks, Zenaida Evans [facility] 07-11-2024 Telephone encounter Note See nurse triage note [facility] 07-11-2024 Miscellaneous Notes See nurse triage note documented in this encounter [facility] 07-03-2024 Telephone encounter Note Continues adjacent hospital follow-up and 1 day release on November 09 at 11:10 [facility] 07-03-2024 Miscellaneous Notes Continues adjacent hospital follow-up and 1 day release on November 09 at 11:10 Patient wanted me to contact you, nothing available for medicare wellness in 4 months, I offered to see cris Beltran declined, next available was february. Patient wanted me to message you to see if May was okay for her to be seen. documented in this encounter [facility] 07-03-2024 Telephone encounter Note Patient wanted me to contact you, nothing available for medicare wellness in 4 months, I offered to see cris Beltran declined, next available was february. Patient wanted me to message you to see if May was okay for her to be seen. [facility] 07-03-2024 Note HNO ID: [id number] Author: SUSANNAH CLEMENTE MD Service: ? Author Type: Physician Type: Progress Notes Filed: 07/03/2024 11:03 Note Text: Note created with StyleUp Software: HPI The patient is a 89-year-old female with a history of HTN, presenting for evaluation of dyspnea and recent UTI. The patient reports intermittent dyspnea for the past 6 months, particularly noticeable when ascending stairs or walking on inclines. She describes the dyspnea as not normal for her and notes that it resolves with rest. She denies wheezing. She was evaluated by cardiology in March and has a follow-up appointment scheduled for next March. She is unsure if an EKG was performed during her last cardiology visit. She is currently on her last day of antibiotics for a recent UTI and reports feeling well with resolution of symptoms. She has been taking Farxiga 10 mg, halved to 5 mg, for over a year without prior incidents of UTIs. She was previously informed that a 5 mg dose was unavailable. She also mentions a recent insect bite that became infected, for which she was prescribed prednisone in May. The infection has since resolved. The patient reports recent stress due to her eldest daughter, Nancie, being diagnosed with pancreatic cancer. Nancie, who is 65 years old, is currently undergoing chemotherapy and is scheduled for surgery after three months of treatment. The patient had initially scheduled a counseling appointment via Zoom but canceled it due to the overwhelming circumstances and is now unable to contact the counselor. She declines the COVID-19 vaccine at this time but plans to receive the flu vaccine in July. She inquires about the [facility] cancer screening test. Cardiovascular: (+) shortness of breath Respiratory: (+) shortness of breath (-) wheezing Genitourinary: (+) urinary tract infection BP 136/72 Pulse 74 Temp 36.6 ?C (97.9 ?F) (Oral) Wt 61.3 kg (135 lb 2.3 oz) SpO2 96% BMI 21.81 kg/m? General: No acute distress. Resp: Lungs clear to auscultation bilaterally, no wheezes or rhonchi. CV: Regular rate and rhythm, no murmurs, rubs, or gallops. MSK/Ext: Trace edema bilaterally. No carotid bruits Latest Ref Rng 04/26/2023 07/06/2023 09/28/2023 11/02/2023 12/31/2023 03/27/2024 06/24/2024 WBC 3.70 - 11.00 k/uL 4.38 4.44 3.83 4.55 5.66 RBC 3.90 - 5.20 m/uL 3.50 (L) 3.33 (L) 3.43 (L) 3.39 (L) 3.61 (L) Hemoglobin 11.5 - 15.5 g/dL 11.1 (L) 10.6 (L) 10.9 (L) 10.7 (L) 11.3 (L) Hematocrit 36.0 - 46.0 % 34.0 (L) 32.4 (L) 32.5 (L) 32.0 (L) 35.9 (L) MCV 80.0 - 100.0 fL 97.1 97.3 94.8 94.4 99.4 MCH 26.0 - 34.0 pg 31.7 31.8 31.8 31.6 31.3 MCHC 30.5 - 36.0 g/dL 32.6 32.7 33.5 33.4 31.5 RDW-CV 11.5 - 15.0 % 13.0 12.9 13.2 13.2 12.5 Platelet Count 150 - 400 k/uL 179 196 198 173 172 MPV 9.0 - 12.7 fL 9.5 9.9 9.4 9.6 10.8 Neut% % 49.1 43.9 34.9 51.1 41.8 Abs Neut (ANC) 1.45 - 7.50 k/uL 2.15 1.95 1.34 (L) 2.32 2.37 Lymph% % 38.1 42.1 49.1 35.6 39.6 Abs Lymph 1.00 - 4.00 k/uL 1.67 1.87 1.88 1.62 2.24 Island% % 10.5 11.3 13.1 11.6 14.7 Abs Island <0.87 k/uL 0.46 0.50 0.50 0.53 0.83 Eosin% % 1.6 1.8 1.6 0.9 3.0 Abs Eosin <0.46 k/uL 0.07 0.08 0.06 0.04 0.17 Baso% % 0.5 0.7 1.0 0.4 0.5 Abs Baso <0.11 k/uL <0.03 0.03 0.04 <0.03 0.03 Immature Gran % % 0.2 0.2 0.3 0.4 0.4 IMMATURE GRANS (ABS) <0.10 k/uL <0.03 <0.03 <0.03 <0.03 <0.03 NRBC /100 WBC 0.0 0.0 0.0 0.0 0.0 Absolute nRBC <0.01 k/uL <0.01 <0.01 <0.01 <0.01 <0.01 DTYPE Auto Auto Auto Auto Auto Glucose 74 - 99 mg/dL 90 82 100 (H) BUN 7 - 21 mg/dL 37 (H) 31 (H) 30 (H) Creatinine 0.58 - 0.96 mg/dL 1.47 (H) 1.42 (H) 1.34 (H) Sodium 136 - 144 mmol/L 140 145 (H) 144 Potassium 3.7 - 5.1 mmol/L 4.8 4.7 4.6 Chloride 98 - 107 mmol/L 104 105 106 CO2 22 - 30 mmol/L 25 26 27 Anion Gap 8 - 15 mmol/L 11 14 11 Calcium 8.5 - 10.2 mg/dL 10.0 10.4 (H) 9.6 eGFR >=60 mL/min/1.73m? 35 (L) 36 (L) 38 (L) Cholesterol, Total <200 mg/dL 194 Triglyceride <150 mg/dL 84 HDL Cholesterol >39 mg/dL 78 Non HDL Cholesterol <130 mg/dL 116 Fasting Time hrs 12 VLDL Cholesterol <30 mg/dL 17 TC:HDL Ratio <5.10 2.49 LDL Cholesterol <100 mg/dL 99 LDL:HDL Ratio <2.54 1.27 TSH 0.270 - 4.200 mIU/L 2.040 NT Pro BNP <450 pg/mL 1,186 (H) Culture Assessment and Plan # 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 disease, or chronic kidney disease (HCC) (I13.0) - Blood pressure readings are stable. Recent labs show improvement in renal function with creatinine decreased to 1.34 mg/dL. Hemoglobin levels have increased to 11.3 g/dL. Completed antibiotic treatment for recent UTI; monitor for recurrent infections. Prescribed Farxiga 5 mg daily; previously taking 10 mg and splitting the dose. Refilled Farxiga 5 mg prescription. Declined flu and COVID vaccines at this time. Reviewed improvement in recent creatinine. # Exertional dyspnea (R06.09) - Symptoms present for approximately six mon (more content not included)... [facility] 07-03-2024 History of Presen t illness Narrative Note created with [employer]: HPI The patient is a 89-year-old female with a history of HTN, presenting for evaluation of dyspnea and recent UTI. The patient reports intermittent dyspnea for the past 6 months, particularly noticeable when ascending stairs or walking on inclines. She describes the dyspnea as not normal for her and notes that it resolves with rest. She denies wheezing. She was evaluated by cardiology in March and has a follow-up appointment scheduled for next March. She is unsure if an EKG was performed during her last cardiology visit. She is currently on her last day of antibiotics for a recent UTI and reports feeling well with resolution of symptoms. She has been taking Farxiga 10 mg, halved to 5 mg, for over a year without prior incidents of UTIs. She was previously informed that a 5 mg dose was unavailable. She also mentions a recent insect bite that became infected, for which she was prescribed prednisone in May. The infection has since resolved. The patient reports recent stress due to her eldest daughter, Nancie, being diagnosed with pancreatic cancer. Nancie, who is 65 years old, is currently undergoing chemotherapy and is scheduled for surgery after three months of treatment. The patient had initially scheduled a counseling appointment via Zoom but canceled it due to the overwhelming circumstances and is now unable to contact the counselor. She declines the COVID-19 vaccine at this time but plans to receive the flu vaccine in July. She inquires about the [facility] cancer screening test. Cardiovascular: (+) shortness of breath Respiratory: (+) shortness of breath (-) wheezing Genitourinary: (+) urinary tract infection BP 136/72 Pulse 74 Temp 36.6 C (97.9 F) (Oral) Wt 61.3 kg (135 lb 2.3 oz) SpO2 96% BMI 21.81 kg/m General: No acute distress. Resp: Lungs clear to auscultation bilaterally, no wheezes or rhonchi. CV: Regular rate and rhythm, no murmurs, rubs, or gallops. MSK/Ext: Trace edema bilaterally. No carotid bruits Latest Ref Rng 04/26/2023 07/06/2023 09/28/2023 11/02/2023 12/31/2023 03/27/2024 06/24/2024 WBC 3.70 - 11.00 k/uL 4.38 4.44 3.83 4.55 5.66 RBC 3.90 - 5.20 m/uL 3.50 (L) 3.33 (L) 3.43 (L) 3.39 (L) 3.61 (L) Hemoglobin 11.5 - 15.5 g/dL 11.1 (L) 10.6 (L) 10.9 (L) 10.7 (L) 11.3 (L) Hematocrit 36.0 - 46.0 % 34.0 (L) 32.4 (L) 32.5 (L) 32.0 (L) 35.9 (L) MCV 80.0 - 100.0 fL 97.1 97.3 94.8 94.4 99.4 MCH 26.0 - 34.0 pg 31.7 31.8 31.8 31.6 31.3 MCHC 30.5 - 36.0 g/dL 32.6 32.7 33.5 33.4 31.5 RDW-CV 11.5 - 15.0 % 13.0 12.9 13.2 13.2 12.5 Platelet Count 150 - 400 k/uL 179 196 198 173 172 MPV 9.0 - 12.7 fL 9.5 9.9 9.4 9.6 10.8 Neut% % 49.1 43.9 34.9 51.1 41.8 Abs Neut (ANC) 1.45 - 7.50 k/uL 2.15 1.95 1.34 (L) 2.32 2.37 Lymph% % 38.1 42.1 49.1 35.6 39.6 Abs Lymph 1.00 - 4.00 k/uL 1.67 1.87 1.88 1.62 2.24 Island% % 10.5 11.3 13.1 11.6 14.7 Abs Island <0.87 k/uL 0.46 0.50 0.50 0.53 0.83 Eosin% % 1.6 1.8 1.6 0.9 3.0 Abs Eosin <0.46 k/uL 0.07 0.08 0.06 0.04 0.17 Baso% % 0.5 0.7 1.0 0.4 0.5 Abs Baso <0.11 k/uL <0.03 0.03 0.04 <0.03 0.03 Immature Gran % % 0.2 0.2 0.3 0.4 0.4 IMMATURE GRANS (ABS) <0.10 k/uL <0.03 <0.03 <0.03 <0.03 <0.03 NRBC /100 WBC 0.0 0.0 0.0 0.0 0.0 Absolute nRBC <0.01 k/uL <0.01 <0.01 <0.01 <0.01 <0.01 DTYPE Auto Auto Auto Auto Auto Glucose 74 - 99 mg/dL 90 82 100 (H) BUN 7 - 21 mg/dL 37 (H) 31 (H) 30 (H) Creatinine 0.58 - 0.96 mg/dL 1.47 (H) 1.42 (H) 1.34 (H) Sodium 136 - 144 mmol/L 140 145 (H) 144 Potassium 3.7 - 5.1 mmol/L 4.8 4.7 4.6 Chloride 98 - 107 mmol/L 104 105 106 CO2 22 - 30 mmol/L 25 26 27 Anion Gap 8 - 15 mmol/L 11 14 11 Calcium 8.5 - 10.2 mg/dL 10.0 10.4 (H) 9.6 eGFR >=60 mL/min/1.73m 35 (L) 36 (L) 38 (L) Cholesterol, Total <200 mg/dL 194 Triglyceride <150 mg/dL 84 HDL Cholesterol >39 mg/dL 78 Non HDL Cholesterol <130 mg/dL 116 Fasting Time hrs 12 VLDL Cholesterol <30 mg/dL 17 TC:HDL Ratio <5.10 2.49 LDL Cholesterol <100 mg/dL 99 LDL:HDL Ratio <2.54 1.27 TSH 0.270 - 4.200 mIU/L 2.040 NT Pro BNP <450 pg/mL 1,186 (H) Culture Assessment and Plan # 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 disease, or chronic kidney disease (HCC) (I13.0) - Blood pressure readings are stable. Recent labs show improvement in renal function with creatinine decreased to 1.34 mg/dL. Hemoglobin levels have increased to 11.3 g/dL. Completed antibiotic treatment for recent UTI; monitor for recurrent infections. Prescribed Farxiga 5 mg daily; previously taking 10 mg and splitting the dose. Refilled Farxiga 5 mg prescription. Declined flu and COVID vaccines at this time. Reviewed improvement in recent creatinine. # Exertional dyspnea (R06.09) - Symptoms present for approximately six months, occurring with activities such as climbing stairs or walking on inclines; resolves with rest. No wheezing noted. Cardiology follow-up with Dr. Namita Bautista in March; next appointment scheduled for March next year. No EKG on file; ordered EKG to be performed today. Ordered chest X-ray. Depending on EKG results, will order a cardiac stress test. Recommend stress echo. Reviewed had negative stress nuclear test in 2019. 3. Acute cystitis without hematuria - ICD9: 595.0, ICD10: N30.00 Resolved. Finishing keflex today. Return in about 4 months (around 11/02/2024) for Medicare Wellness. Susannah Clemente MD documented in this encounter [facility] 06-26-2024 Note HNO ID: [id number] Author: EMILEE CRUMP APRN.[employer] Service: ? Author Type: Nurse Practitioner Type: Progress Notes Filed: 06/26/2024 16:09 Note Text: Patient presents with: Urinary Frequency: burning with urination x 1 day, took azo 89 year old female presents with 1 day(s) of dysuria, frequency, and urgency. Denies fever chills, nausea, and vomiting. Took azo with moderate relief. Review of Systems Constitutional: Negative for chills, fever, malaise/fatigue and weight loss. Gastrointestinal: Negative for constipation, diarrhea, nausea and vomiting. Genitourinary: Positive for dysuria and frequency. Negative for flank pain, hematuria and urgency. Neurological: Negative for dizziness and headaches. Physical Exam Vitals and nursing note reviewed. Constitutional: General: She is not in acute distress. Cardiovascular: Rate and Rhythm: Normal rate and regular rhythm. Heart sounds: Normal heart sounds. Pulmonary: Effort: Pulmonary effort is normal. No respiratory distress. Breath sounds: Normal breath sounds. No wheezing or rales. Abdominal: Tenderness: There is no abdominal tenderness. There is no right CVA tenderness or left CVA tenderness. Neurological: Mental Status: She is alert and oriented to person, place, and time. ASSESSMENT/PLAN: 1. Urinary frequency - ICD9: 788.41, ICD10: R35.0 acute - UA positive for , glucose (takes farxiga), aline esterase, hematuria, proteinuria, and nitrates - Send urine for culture - Begin treatment with cephalexin for 7 days - Patient education for prevention given - UA DIP, URINE (POC) - URINE CULTURE - advised will only call if change in therapy is required. Emilee Crump [facility] 06-26-2024 History of Presen t illness Narrative Patient presents with: Urinary Frequency: burning with urination x 1 day, took azo 89 year old female presents with 1 day(s) of dysuria, frequency, and urgency. Denies fever chills, nausea, and vomiting. Took azo with moderate relief. Review of Systems Constitutional: Negative for chills, fever, malaise/fatigue and weight loss. Gastrointestinal: Negative for constipation, diarrhea, nausea and vomiting. Genitourinary: Positive for dysuria and frequency. Negative for flank pain, hematuria and urgency. Neurological: Negative for dizziness and headaches. Physical Exam Vitals and nursing note reviewed. Constitutional: General: She is not in acute distress. Cardiovascular: Rate and Rhythm: Normal rate and regular rhythm. Heart sounds: Normal heart sounds. Pulmonary: Effort: Pulmonary effort is normal. No respiratory distress. Breath sounds: Normal breath sounds. No wheezing or rales. Abdominal: Tenderness: There is no abdominal tenderness. There is no right CVA tenderness or left CVA tenderness. Neurological: Mental Status: She is alert and oriented to person, place, and time. ASSESSMENT/PLAN: 1. Urinary frequency - ICD9: 788.41, ICD10: R35.0 acute - UA positive for , glucose (takes farxiga), laine esterase, hematuria, proteinuria, and nitrates - Send urine for culture - Begin treatment with cephalexin for 7 days - Patient education for prevention given - UA DIP, URINE (POC) - URINE CULTURE - advised will only call if change in therapy is required. Emilee Crump documented in this encounter [facility] 06-26-2024 Instructions Emilee Crump APRN.CNP - 06/26/2024 3:56 PM EDT Images from the original note were not included. Urinary Problem-When to Seek Help? Symptoms of a urinary problem may lead to a bladder infection. Women are at greater risk of a urinary tract infection than are men. Most urinary tract infections in women are caused by bacteria and involve the lower urinary tract including the bladder and urethra. Symptoms: Pain or burning when passing urine, urgency, frequency, blood in the urine, difficult emptying your bladder, and lower abdominal fullness or pressure. Common Causes: Sexual intercourse, menopause, constipation, uncontrolled diabetes, dehydration and feminine products such as tampons, and kidney stones. When to Get Help: Seek medical attention if you get frequent bladder infections, urinary concerns such as leakage, blood in the urine or frequent need to urinate. You may be recommended to get help from a specialist, such as a urologist. Diagnosis & Treatment: Lab testing may include: urinalysis, and urine culture that can be collected in the lab or walk-in clinic. Most bladder infections can easily be treated. A physician, nurse practitioner or physician transport assistant may treat with a short course of an antibiotic. Delaying treatment can lead to worsening symptoms, like a kidney infection. Self-Care: Avoid a full bladder, bubble baths, bath oils, food and beverages that may irritate the bladder such as caffeine. Avoid spermicide foam and diaphragms Void before and after sexual intercourse Wipe front to back after using the bathroom. Stay hydrated Stop Smoking Follow-up Care: Follow up testing is not needed in healthy young women if symptoms resolve. documented in this encounter [facility] 06-26-2024 Telephone encounter Note Msg relayed with understanding. Pt to go to walk in clinic [facility] 06-26-2024 Miscellaneous Notes Msg relayed with understanding. Pt to go to walk in clinic LM for patient to call back Agree with need to be seen. If took azo, urinalysis won't be accurate. But I would recommend urine culture. Can she await culture results? Yesterday patient started with UTI symptoms Burning with urination, lower abdominal pressure, increased urgency and frequency, and lower back pain Feels like UTIs she has had in the past Denies fever, blood in urine, or flank pain Per protocol advised patient that she would need to come into the office to be seen; patient not agreeable States that she took AZO and her urine results won't be accurate Patient asking for antibiotic Reason for Disposition Side (flank) or lower back pain present Answer Assessment - Initial Assessment Questions 1. SEVERITY: Moderate 2. FREQUENCY: Increased 3. PATTERN: With every urination 4. ONSET: Yesterday 5. FEVER: Denies 6. PAST UTI: Feels the same 7. CAUSE: UTI 8. OTHER SYMPTOMS: Increased urgency, lower abdominal pressure 9. : NA Protocols used: Urination Pain - [id number] Zenaida is calling Susannah Clemente MD today with concern regarding burning and pressure with urination Patient has been identified by name and birthdate. Duration of symptoms: 2 days Person calling: self Call patient at: on cell [phone] (home) [phone] (cell) Was an appointment scheduled: No Closing statement: Symptom Call: Thank you for calling [facility], your call is very important. A nurse will call in approximately 2-4 hours during business hours. If this is an emergency, please contact 911. Tere Londono documented in this encounter [facility] 06-26-2024 Telephone encounter Note LM for patient to call back [facility] 06-26-2024 Telephone encounter Note Agree with need to be seen. If took azo, urinalysis won't be accurate. But I would recommend urine culture. Can she await culture results? [facility] 06-26-2024 Telephone encounter Note Yesterday patient started with UTI symptoms Burning with urination, lower abdominal pressure, increased urgency and frequency, and lower back pain Feels like UTIs she has had in the past Denies fever, blood in urine, or flank pain Per protocol advised patient that she would need to come into the office to be seen; patient not agreeable States that she took AZO and her urine results won't be accurate Patient asking for antibiotic Reason for Disposition Side (flank) or lower back pain present Answer Assessment - Initial Assessment Questions 1. SEVERITY: Moderate 2. FREQUENCY: Increased 3. PATTERN: With every urination 4. ONSET: Yesterday 5. FEVER: Denies 6. PAST UTI: Feels the same 7. CAUSE: UTI 8. OTHER SYMPTOMS: Increased urgency, lower abdominal pressure 9. : NA Protocols used: Urination Pain - [id number] [facility] 06-26-2024 Telephone encounter Note Zenaida is calling Susannah Clemente MD today with concern regarding burning and pressure with urination Patient has been identified by name and birthdate. Duration of symptoms: 2 days Person calling: self Call patient at: on cell [phone] (home) [phone] (cell) Was an appointment scheduled: No Closing statement: Symptom Call: Thank you for calling [facility], your call is very important. A nurse will call in approximately 2-4 hours during business hours. If this is an emergency, please contact 911. Tere Londono [facility] 06-11-2024 Note HNO ID: [id number] Author: KELSI ZAVALA APRN.[employer] Service: ? Author Type: Nurse Practitioner Type: Progress Notes Filed: 06/11/2024 13:28 Note Text: This note was created using [employer]. Subjective Zenaida Evans is a 89 year old female. Reviewed pertient PMH: CKD stage 3, HTN 89 year female presenting with rash x1 week Acute onset x1 week Pt presents today with a rash that started 1 week ago. Pt states she noticed bites on her right inner elbow and left arm that were itchy and burning. Pt states she feels like the rash is improving on the right arm, but is worsening on the left arm. She is having increasing pain, redness and swelling in the left arm that she feels has become deeper. She denies any changes in body wash, lotions, detergents, new food or new medications. She attempted to put Vitamin E oil and neosporin cream on the bites without any relief. She denies nausea, vomiting, fatigue, fever, shortness of breath, headache and chest pain. The history is provided by the patient. No english language learner tutor was used. Rash This is a new problem. The current episode started in the past 7 days. The problem has been gradually worsening since onset. The affected locations include the left arm and right arm. The rash is characterized by redness, pain, swelling, itchiness and burning. It is unknown if there was an exposure to a precipitant. Pertinent negatives include no congestion, cough, diarrhea, eye pain, fatigue, fever, rhinorrhea, shortness of breath, sore throat or vomiting. Treatments tried: neosporin. The treatment provided no relief. Her past medical history is significant for allergies. There is no history of asthma, eczema or varicella. PAST MEDICAL HISTORY 09/2011: Breast cancer (HCC) Comment: seeing Dr Wood right ER positive s/p surgery/radiation and AI 07/30/2017: Collagenous colitis Comment: On biopsy 2012. No date: Diarrhea Comment: hx of colitis No date: Diffuse cystic mastopathy No date: Dyspareunia No date: Essential hypertension 03/13/2011: H/O complete eye exam Comment: no retinopathy detected -both eyes - [facility] - return in 1 year - Dr. Ruby No date: hair thinning Comment: sees Dr Choudhary 1974-present: Hormone replacement therapy (HRT) Comment: stopped by 09/2011: hx of low vitamin D treated Comment: 20.4 recheck only 06/25 improved to 54 No date: PMH - PAST MEDICAL HISTORY OF Comment: cardiac arrhythmia- resolved with change in medication 11/22/2019: Stage 3 chronic kidney disease (HCC) 1975: Symptomatic states associated with artificial menopause Comment: THBSO for fibroids age 40 08/2015: Vaginal atrophy Comment: offered vag DHEA No date: Vaginismus Comment: for PT PAST SURGICAL HISTORY No date: APPENDECTOMY 04/16/2009: BREAST BIOPSY CORE Comment: right breast stereo core biopsy 04/02/2008: BX BREAST NEEDLE CORE W/O IMAGING GUIDANCE SPX Comment: right breast stereo core biopsy 10/30/2011: BX/EXC LYMPH NODE OPEN DEEP AXILLARY NODE Comment: Right NL PM/SLNs 09/04, 12/06: CATARACT EXTRACTION HX; Bilateral 09/08/2013: COLONOSCOPY FLX DX W/COLLJ SPEC WHEN PFRMD Comment: Colonoscopy 10/30/2011: MASTECTOMY, PARTIAL; Right Comment: Right NL PM/SLNs No date: PAST SURGICAL HISTORY OF Comment: bilat vein stripping 1990: PAST SURGICAL HISTORY OF; Left Comment: left breast Atypical hyperplasia No date: PAST SURGICAL HISTORY OF Comment: excision skin cancer 11/2020: S FINGER JOINT IMPLANT [id number]; Left Comment: Candace Marmolejo left thumb joint replacement early : TOTAL ABDOMINAL HYSTERECT W/WO RMVL TUBE OVARY Comment: Hysterectomy, CAROL, due to fibroids. ALLERGIES Scopolamine, Amlodipine, Arb-Angiotensin Receptor Antagonist, Hctz [Thiazides], Hydralazine, Iron, Jardiance [Empagliflozin], Lipitor [Atorvastatin], Losartan, Spironolactone, Talwin [Pentazocine Lactate], and Verapamil Hcl MEDICATIONS levothyroxine (SYNTHROID) 88 mcg tablet Take 1 tablet by mouth once daily. ondansetron orally disintegrating (ZOFRAN ODT) 4 mg disintegrating tablet dissolve 1 tablet in mouth every 8 hours as needed for nausea famotidine (PEPCID) 20 mg tablet Take 1 tablet by mouth once daily as needed. cloNIDine TTS (CATAPRES-TTS) 0.1 mg/24 hr Apply 1 Patch as directed one time a week. dapagliflozin propanediol (FARXIGA) 10 mg tablet Take 1 tablet by mouth daily with breakfast. (Patient taking differently: Take 5 mg by mouth daily with breakfast.) labetalol (TRANDATE) 200 mg tablet Take 1 tablet by mouth two times a day. indapamide (LOZOL) 1.25 mg tablet Take 1 tablet by mouth once daily. minoxidil (LONITEN) 2.5 mg tablet 1 TABLET DAILY ketoconazole (NIZORAL) 2 % shampoo Use to wash face and scalp two times a week. Lather and leave in for 3-5 minutes before rinsing. furosemide (LASIX) 20 mg tablet Take 1 tablet by mouth every Wednesday,Wednesday,Wednesday (0600). MULTIVITAMIN ORAL Take 1 table (more content not included)... [facility] 06-11-2024 History of Presen t illness Narrative Images from the original note were not included. This note was created using [employer]. Subjective Zenaida Evans is a 89 year old female. Reviewed pertient PMH: CKD stage 3, HTN 89 year female presenting with rash x1 week Acute onset x1 week Pt presents today with a rash that started 1 week ago. Pt states she noticed bites on her right inner elbow and left arm that were itchy and burning. Pt states she feels like the rash is improving on the right arm, but is worsening on the left arm. She is having increasing pain, redness and swelling in the left arm that she feels has become deeper. She denies any changes in body wash, lotions, detergents, new food or new medications. She attempted to put Vitamin E oil and neosporin cream on the bites without any relief. She denies nausea, vomiting, fatigue, fever, shortness of breath, headache and chest pain. The history is provided by the patient. No english language learner tutor was used. Rash This is a new problem. The current episode started in the past 7 days. The problem has been gradually worsening since onset. The affected locations include the left arm and right arm. The rash is characterized by redness, pain, swelling, itchiness and burning. It is unknown if there was an exposure to a precipitant. Pertinent negatives include no congestion, cough, diarrhea, eye pain, fatigue, fever, rhinorrhea, shortness of breath, sore throat or vomiting. Treatments tried: neosporin. The treatment provided no relief. Her past medical history is significant for allergies. There is no history of asthma, eczema or varicella. PAST MEDICAL HISTORY 09/2011: Breast cancer (HCC) Comment: seeing Dr Nina moraes ER positive s/p surgery/radiation and AI 07/30/2017: Collagenous colitis Comment: On biopsy 2012. No date: Diarrhea Comment: hx of colitis No date: Diffuse cystic mastopathy No date: Dyspareunia No date: Essential hypertension 03/13/2011: H/O complete eye exam Comment: no retinopathy detected -both eyes - [facility] - return in 1 year - Dr. Ruby No date: hair thinning Comment: sees Dr Choudhary 1974-present: Hormone replacement therapy (HRT) Comment: stopped by 09/2011: hx of low vitamin D treated Comment: 20.4 recheck only 23 06/25 improved to 54 No date: PMH - PAST MEDICAL HISTORY OF Comment: cardiac arrhythmia- resolved with change in medication 11/22/2019: Stage 3 chronic kidney disease (HCC) 1974: Symptomatic states associated with artificial menopause Comment: THBSO for fibroids age 40 08/2015: Vaginal atrophy Comment: offered vag DHEA No date: Vaginismus Comment: for PT PAST SURGICAL HISTORY No date: APPENDECTOMY 04/16/2009: BREAST BIOPSY CORE Comment: right breast stereo core biopsy 04/02/2008: BX BREAST NEEDLE CORE W/O IMAGING GUIDANCE SPX Comment: right breast stereo core biopsy 10/30/2011: BX/EXC LYMPH NODE OPEN DEEP AXILLARY NODE Comment: Right NL PM/SLNs 09/04, 12/06: CATARACT EXTRACTION HX; Bilateral 09/08/2013: COLONOSCOPY FLX DX W/COLLJ SPEC WHEN PFRMD Comment: Colonoscopy 10/30/2011: MASTECTOMY, PARTIAL; Right Comment: Right NL PM/SLNs No date: PAST SURGICAL HISTORY OF Comment: bilat vein stripping 1990: PAST SURGICAL HISTORY OF; Left Comment: left breast Atypical hyperplasia No date: PAST SURGICAL HISTORY OF Comment: excision skin cancer 11/2020: S FINGER JOINT IMPLANT [id number]; Left Comment: Candace Marmolejo left thumb joint replacement early : TOTAL ABDOMINAL HYSTERECT W/WO RMVL TUBE OVARY Comment: Hysterectomy, CAROL, due to fibroids. ALLERGIES Scopolamine, Amlodipine, Arb-Angiotensin Receptor Antagonist, Hctz [Thiazides], Hydralazine, Iron, Jardiance [Empagliflozin], Lipitor [Atorvastatin], Losartan, Spironolactone, Talwin [Pentazocine Lactate], and Verapamil Hcl MEDICATIONS levothyroxine (SYNTHROID) 88 mcg tablet Take 1 tablet by mouth once daily. ondansetron orally disintegrating (ZOFRAN ODT) 4 mg disintegrating tablet dissolve 1 tablet in mouth every 8 hours as needed for nausea famotidine (PEPCID) 20 mg tablet Take 1 tablet by mouth once daily as needed. cloNIDine TTS (CATAPRES-TTS) 0.1 mg/24 hr Apply 1 Patch as directed one time a week. dapagliflozin propanediol (FARXIGA) 10 mg tablet Take 1 tablet by mouth daily with breakfast. (Patient taking differently: Take 5 mg by mouth daily with breakfast.) labetalol (TRANDATE) 200 mg tablet Take 1 tablet by mouth two times a day. indapamide (LOZOL) 1.25 mg tablet Take 1 tablet by mouth once daily. minoxidil (LONITEN) 2.5 mg tablet 1 TABLET DAILY ketoconazole (NIZORAL) 2 % shampoo Use to wash face and scalp two times a week. Lather and leave in for 3-5 minutes before rinsing. furosemide (LASIX) 20 mg tablet Take 1 tablet by mouth every Wednesday,Wednesday,Wednesday (0600). MULTIVITAMIN ORAL Take 1 tablet by mouth once daily. Melatonin 5 mg cap Take 1 capsule by mouth at bedtime as needed. biotin 5 mg tab Take 5 mg by mouth once daily. doxycycline monohydrate 100 mg tablet Take 1 tablet by mouth two times a day for 7 days. predniSONE (DELTASONE) 10 mg tablet Take 4 tabs daily for 3 days, then 2 tabs daily for 3 days, then 1 tab daily for 3 days with food. Ferrous Sulfate (SLOW FE) 142 mg (45 mg iron) TbER Take 1 tablet by mouth two times a week. Cholecalciferol, Vitamin D3, 50 mcg (2,000 unit) cap Take 1 capsule by mouth once daily. FAMILY HISTORY Problem Relation Age of Onset Alzheimer's Disease Mother hypertension/stroke d89 Hypertension Mother Stroke Mother Heart Father heart failure, d 72 other (emphseyma) Sister d 59 other (healthy) Daughter other (healthy) Daughter other (healthy) Son Breast Cancer Maternal Aunt Social History Tobacco Use Smoking status: Former Current packs/day: 0.00 Average packs/day: 1 pack/day for 12.0 years (12.0 ttl pk-yrs) Types: Cigarettes Start date: 01/19/1955 Quit date: 01/19/1967 Years since quittin.4 Passive exposure: Never Smokeless tobacco: Never Vaping Use Vaping status: Never Used Substance Use Topics Alcohol use: Yes Alcohol/week: 5.0 - 7.0 standard drinks of alcohol Types: 5 - 7 Glasses of Wine (5oz) per week Drug use: No Review of Systems Constitutional: Negative for fatigue and fever. HENT: Negative for congestion, ear discharge, ear pain, rhinorrhea and sore throat. Eyes: Negative for pain, discharge and itching. Respiratory: Negative for cough and shortness of breath. Cardiovascular: Negative for chest pain and palpitations. Gastrointestinal: Negative for diarrhea, nausea and vomiting. Skin: Positive for rash. Allergic/Immunologic: Negative for environmental allergies, food allergies and immunocompromised state. Neurological: Negative for dizziness. Objective BP 176/85 Pulse 70 Temp 36.2 C (97.1 F) Resp 20 Wt 59 kg (130 lb 1.1 oz) SpO2 96% BMI 20.99 kg/m Physical Exam Constitutional: General: She is not in acute distress. Appearance: Normal appearance. She is not ill-appearing or toxic-appearing. HENT: Head: Normocephalic and atraumatic. Right Ear: External ear normal. Left Ear: External ear normal. Nose: Nose normal. Eyes: Conjunctiva/sclera: Conjunctivae normal. Pupils: Pupils are equal, round, and reactive to light. Cardiovascular: Rate and Rhythm: Normal rate and regular rhythm. Pulses: Normal pulses. Heart sounds: Normal heart sounds. Pulmonary: Effort: Pulmonary effort is normal. Breath sounds: Normal breath sounds. Skin: General: Skin is warm and dry. Capillary Refill: Capillary refill takes less than 2 seconds. Findings: Erythema and rash present. No abscess, bruising or petechiae. Rash is macular. Rash is not crusting. Comments: Macular rash present on left inner elbow and right forearm Left inner elbow erythematous and warm Negative for streaking Neurological: Mental Status: She is alert and oriented to person, place, and time. Psychiatric: Mood and Affect: Mood normal. Agata King NP Student TEACHING PROVIDER (Physician/PA/MANAGER PROJECT) NOTE OF PERSONAL INVOLVEMENT IN CARE: I have personally seen and examined the patient and performed the medical decision-making components. I have reviewed the Advanced Practice Registered Nurse (MANAGER PROJECT) Student's documentation and verified the findings in the note as written. Any additions or changes are noted in bold/italics. Signature: Kelsi Zavala Date: 06/11/2024 Time: 1:28 PM Assessment and Plan ASSESSMENT/PLAN: 1. Cellulitis of left arm - ICD9: 682.3, ICD10: L03.114 - Begin treatment with Doxcyline RX Prednisone taper - No lymphangetic streaking, this was defined for patient to watch for and to seek medical care immediately if appears - Area of cellulitis defined with pen, seek further attention if this area continues to enlarge - Follow up for recheck in two days - Discussed red flags and reasons to seek ED Kelsi Zavala APRN.[employer] ASSEMBLER documented in this encounter [facility] 05-30-2024 Note HNO ID: [id number] Author: ABENA HAMMOND PSYD Service: ? Author Type: Psychologist Type: Progress Notes Filed: 06/06/2024 07:06 Note Text: [facility] Department of Psychology - [facility] Progress Note ZOOM VISIT Zenaida Evans [id number] 05/30/2024 Modality: Individual Therapy Length Of Session: 45 Minutes Session Content: Zenaida reported feeling an improvement in her mood since our last session. She is focusing on gratutude and she connected with an old friend. This connection was encouraging and helpful. She committed to doing daily gratitude and connecting with people from her past/reaching out. She has a plan for speaking to her son concerning his 's mental health, when he visits, which helps to give her a sense of relieve. Interventions: Cognitive Restructuring Diagnosis: Adjustment disorder related to anxiety and depression Plan: 2 weeks Abena Hernández PSYD [facility] 05-22-2024 Note HNO ID: [id number] Author: ABENA HAMMOND PSYD Service: ? Author Type: Psychologist Type: Progress Notes Filed: 05/24/2024 13:06 Note Text: [facility] Department of Psychology - [facility] Progress Note ZOOM VISIT Zenaida Evans [id number] 05/16/2024 Modality: Individual Therapy Length Of Session: 45 Minutes Session Content: Zenaida reported feeling down and unmotivated. She stated not looking forward to many things. In the past, they traveled and went to events. Now, going out is physically and mentally exhausting. Discussed reframing things she is looking forward to (ex. time in her garden, time alone). She stated needing more time alone. Continue to observe depression level/need for medication. She is currently working on a book. We spoke about developing morning routines for some time to herself. She read information about hoarding, which she stated helped her to better understand her son's . Interventions: Cognitive Restructuring Diagnosis: Adjustment disorder related to anxiety and depression Plan: 2 weeks Abena Hernández PSYD [facility] 05-15-2024 Telephone encounter Note Patient is requesting from [employer]: Refills as follows: Requested Prescriptions Pending Prescriptions Disp Refills levothyroxine (SYNTHROID) 88 mcg tablet 90 tablet 1 Sig: Take 1 tablet by mouth once daily. Please review and advise. Last office visit 03/28/2024 Future office visit 07/03/2024 [facility] 05-15-2024 Miscellaneous Notes Patient is requesting from [employer]: Refills as follows: Requested Prescriptions Pending Prescriptions Disp Refills levothyroxine (SYNTHROID) 88 mcg tablet 90 tablet 1 Sig: Take 1 tablet by mouth once daily. Please review and advise. Last office visit 03/28/2024 Future office visit 07/03/2024 documented in this encounter [facility] 05-15-2024 Telephone encounter Note Patient is requesting from [employer]: Refills as follows: Requested Prescriptions Pending Prescriptions Disp Refills ondansetron orally disintegrating (ZOFRAN ODT) 4 mg disintegrating tablet 30 tablet 0 Sig: dissolve 1 tablet in mouth every 8 hours as needed for nausea Please review and advise. Last office visit Future office visit 07/03/2024 [facility] 05-15-2024 Miscellaneous Notes Patient is requesting from [employer]: Refills as follows: Requested Prescriptions Pending Prescriptions Disp Refills ondansetron orally disintegrating (ZOFRAN ODT) 4 mg disintegrating tablet 30 tablet 0 Sig: dissolve 1 tablet in mouth every 8 hours as needed for nausea Please review and advise. Last office visit Future office visit 07/03/2024 documented in this encounter [facility] 05-03-2024 Note HNO ID: [id number] Author: ABENA HAMMOND PSYD Service: ? Author Type: Psychologist Type: Progress Notes Filed: 05/09/2024 22:20 Note Text: GENERAL PSYCHOLOGY PROVIDER: ELIZABETH/Marilu ZOOM VISIT 45 Minutes Patient was seen for an initial evaluation. All information is from Patient report except when noted. This evaluation is NOT intended for forensic, disability or child custody purposes. Informed consent was discussed and signed by the patient. 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 Diarrhea hx of colitis Diffuse cystic mastopathy Dyspareunia Essential hypertension H/O complete eye exam 03/13/2011 no retinopathy detected -both eyes - [facility] - return in 1 year - Dr. [...] early 1969' Hysterectomy, CAROL, due to fibroids. Current Outpatient Medications Medication Sig famotidine (PEPCID) 20 mg tablet Take 1 tablet by mouth once daily as needed. cloNIDine TTS (CATAPRES-TTS) 0.1 mg/24 hr Apply 1 Patch as directed one time a week. dapagliflozin propanediol (FARXIGA) 10 mg tablet Take 1 tablet by mouth daily with breakfast. (Patient taking differently: Take 5 mg by mouth daily with breakfast.) labetalol (TRANDATE) 200 mg tablet Take 1 tablet by mouth two times a day. ondansetron orally disintegrating (ZOFRAN ODT) 4 mg disintegrating tablet dissolve 1 tablet in mouth every 8 hours as needed for nausea levothyroxine (SYNTHROID) 88 mcg tablet Take 1 tablet by mouth once daily. indapamide (LOZOL) 1.25 mg tablet Take 1 tablet by mouth once daily. minoxidil (LONITEN) 2.5 mg tablet 1 TABLET DAILY ketoconazole (NIZORAL) 2 % shampoo Use to [...] No current facility-administered medications for this visit. ALLERGIES Allergen Reactions Scopolamine Mental Status Change Hallucinations Amlodipine Other: See Comments Significant swelling even on 2.5 mg per day. Arb-Angiotensin Rec* Contraindication-Medical Surgical Bright, hyperkalemia Hctz [Thiazides] Contraindication-Medical Surgical Hyponatremia at 12.5 mg. Hydralazine Intolerance nausea Iron GI Upset CAN TAKE SLO-IRON Jardiance [Empaglif* Diarrhea Lipitor [Atorvastat* Myalgia Losartan Other: See Comments BRIGHT with elevated potassium and creatinine. Spironolactone Intolerance Blood pressure went up Talwin [Pentazocine* Mental Status Change HALLUCINATIONS Verapamil Hcl GI Upset constipation REFERRAL SOURCE: Zenaida was referred by her Chief Jailer. 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 She states feelings of resentment and a change in her freedom, ability to focus on her new book etc. [facility] devices to help with reading/using a computer. Zenaida also expressed worry about her son and his . She noticed his has been exhibiting hoarding behavio (more content not included)... [facility] 04-10-2024 Telephone encounter Note Updated vitals. [facility] 04-10-2024 Miscellaneous Notes Updated vitals. documented in this encounter [facility] 03-30-2024 Instructions Paul Bautista MD - 03/30/2024 3:14 PM EDT Thank you for visiting the [facility] at the [facility]. Here are your instructions. 1. No changes to medications. 2. Return in 1 year with echocardiogram. Please call with questions or concerns. Office: [phone] Paul Bautista MD documented in this encounter [facility] 03-30-2024 History of Presen t illness Narrative Images from the original note were not included. [facility] [place] [facility] SECTION OF HEART FAILURE and CARDIAC TRANSPLANT MEDICINE OUTPATIENT VISIT DATE March 30, 2024 OUTPATIENT VISIT TYPE Established Patient PRIMARY CARE PHYSICIAN: Susannah Clemente [facility] [place] [address] CHIEF COMPLAINT: Feeling well NURSING INTAKE (Patient s concerns and/or recent hospitalizations/ER visits): HF Nursing Assessment: Interim Hospitalizations and/or ER visits:11/06/2023 Chest Pain: no Skipping or irregular heartbeats: no Shortness of breath at rest: no Shortness of breath with activity: yes Cough: yes Waking up in the middle of the night gasping for air: no Lightheadedness or dizziness: yes, from Farxgia Feeling like you are going to pass out: yes Actually passing out: no Poor energy level: yes Unintentional weight gain: no Unintentional weight loss: no Swelling in your legs,feet, abdomen: yes, legs Filling up quickly when you eat: yes HISTORY OF PRESENT ILLNESS: 88 yo male with pmh of hypertension, CKD stage 3b, hypothyroidism, and HFpEF who presents for further evaluation of her HFpEF. She was diagnosed with HFpEF in 04/2020 when she presented to her power plant manager with peripheral edema requiring furosemide. Her ntprobnp [...] visits. Since her last visit, she has done well. Denies any edema, orthopnea or PND. She is active and gardening. Mainly has dyspnea up any inclines. PAST MEDICAL HISTORY Diagnosis Date Breast cancer (HCC) 09/[address] Nina moraes ER positive s/p surgery/radiation and AI Collagenous colitis 07/30/2017 On biopsy 2012. Diarrhea hx of colitis Diffuse cystic mastopathy Dyspareunia Essential hypertension H/O complete eye exam 03/13/2011 no retinopathy detected -both eyes - [facility] - return in 1 year - [...] Cigarettes Quit date: 01/19/1967 Years since quittin.2 Passive exposure: Never Smokeless tobacco: Never Vaping Use Vaping Use: [...] swelling even on 2.5 mg per day. Arb-Angiotensin Rec* Contraindication-Medical Surgical Bright, hyperkalemia Hctz [Thiazides] Contraindication-Medical Surgical Hyponatremia at 12.5 mg. Hydralazine Intolerance nausea Iron GI Upset CAN TAKE SLO-IRON Jardiance [Empaglif* Diarrhea Lipitor [Atorvastat* Myalgia Losartan Other: See Comments BRIGHT with elevated potassium and creatinine. Spironolactone Intolerance Blood pressure went up Talwin [Pentazocine* Mental Status Change HALLUCINATIONS Verapamil Hcl GI Upset constipation CURRENT MEDICATIONS: famotidine (PEPCID) 20 mg tablet Take 1 tablet by mouth once daily as needed. cloNIDine TTS (CATAPRES-TTS) 0.1 mg/24 hr Apply 1 Patch as directed one time a week. dapagliflozin propanediol (FARXIGA) 10 mg tablet Take 1 tablet by mouth daily with breakfast. (Patient taking differently: Take 5 mg by mouth daily with breakfast.) labetalol (TRANDATE) 200 mg tablet Take 1 tablet by mouth two times a day. ondansetron orally disintegrating (ZOFRAN ODT) 4 mg disintegrating tablet dissolve 1 tablet in mouth every 8 hours as needed for nausea levothyroxine (SYNTHROID) 88 mcg tablet Take 1 tablet by mouth once daily. indapamide (LOZOL) 1.25 mg tablet Take 1 tablet by mouth once daily. minoxidil (LONITEN) 2.5 mg tablet 1 TABLET DAILY ketoconazole (NIZORAL) 2 % shampoo Use to [...] mouth once daily. REVIEW OF SYSTEMS: CONSTITUTION: Negative for: Weight loss or gain, Fever. Chills, Night sweats HEENT: Negative for: Hearing loss, Nosebleeds, Mouth sores, Trouble swallowing, Dry mouth RESPIRATORY: Positive for: Difficulty breathing Negative for: Cough GASTROINTESTINAL: Negative for: Melena, Diarrhea, Nausea, Abdominal distension, Early satiety MUSCULOSKELETAL: Negative for: Arthralgias, Myalgias NEUROLOGICAL: Negative for: Headaches, Dizziness SKIN: Negative for: Rash EYES: Negative for: Vision disturbance CARDIOVASCULAR: Negative for: Chest pain, Leg swelling, Arrhythmia, Presyncope GENITOURINARY: Negative for: Difficulty urinatiing PATIENT ENTERED DATA: 03/31/2023 KCCQ-12 Scores Physical Limitation Score 83.33 (Class II Heart Failure ) Symptom Frequency Score 81.25 (Class II Heart Failure ) Quality of Life Score 75 (Good to Excellent Quality of Life) Social Limitation Score 83.33 (Class II Heart Failure) Overall Summary Score 80.73 (Class II Heart Failure ) 12/09/2011 07/10/2020 03/31/2023 PHQ-9 Score 8 7 7 7 04/06/2018 07/10/2020 03/08/2023 PROMIS Global Health - (T-Scores - the mean of general population = 50. Five points is a clinically meaningful difference.) Physical T-Score 44.9 42.3 42.3 42.3 Mental T-Score 45.8 38.8 38.8 43.5 PHYSICAL EXAMINATION: BP 133/68 (BP Site: Left Arm) Pulse 75 Ht 167.6 cm (5' 6) Wt 59.4 kg (131 lb) SpO2 97% BMI 21.14 kg/m General: Well appearing, in no acute [...] alert, cooperative, gait coordinated. CARDIOVASCULAR MEDICINE TESTING: There were no tests performed for review. Last ECHO Result Conclusion ECHO Collected: 04/02/2023 [...] * * * Final * * * IMPRESSION: NYHA Functional Class: II Stage: C heart failure 88 yo male with pmh of hypertension, CKD stage 3b, hypothyroidism, and HFpEF who presents for further evaluation of her HFpEF. 1. Chronic HFpEF (chronic diastolic heart failure) - LVEF 60%, normal wall thickness, normal LA size (27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 weight throughout life. Strive for at least 150 minutes of moderate or 75 minutes of vigorous activity per week. Maintain a healthy diet high in fruits, vegetables, and whole grains and low in red and processed meats, sugars, and fat in order to promote weight control and avoid obesity. Limit alcohol intake to less than one drink per day. Avoid tobacco products. Practice sun safety. Obtain 6-7 hours of sleep per night. Follow up with primary care physician regularly. WHEN TO CALL Tests may become necessary in some point of time. We encourage you to call with any new questions or concerns, particularly if your symptoms are worsening or have lasted longer than two weeks. Specifically, please report: breast or chest wall lumps, skin changes, swelling, or nipple discharge unexplained nausea or vomiting unexplained localized bone pain unexplained cough or shortness of breath unexplained swelling in your arm(s) unexplained and persistent headaches Breast Cancer Support and Resources Many resources are available in the community and offer an array of programs including support groups and community education programs. All of them have web sites you can access for additional information. These include but are not limited to: The [facility] Comprehensive Breast Cancer Program - [email or web address]/services/ uzsfgh-hzdfvu-ghluyqq [facility] - [facility] - west.org [employer] - cancer.org [facility] Cancer Foundations - jdbcfoundation.org FORCE - facingourrisk.org [facility] [place] - brightpink.org Young Survival Coalition - youngsurvival.org [facility]th [facility] - 4thangel.org [facility] - touchedbycancer.org ([place] and [place]) [facility] - thevictorycenter.org ([place] area) [facility] - yellowbrickplace.org ([place] area) [facility] - stewartscaringplace.org ([place] area) If you would like to compliment one of our caregivers you encountered today, you may do so at [email or web address]. Thank you ! documented in this encounter [facility] 01-07-2024 Nurse Note Last mammogram on: 01/05/2023 Results: see report Is the patient active on MyChart Yes Electronically Signed By: Letitia Flores Ma In Department: [facility] REVIEW OF PATIENT HISTORY: OB History T3 L3 SAB0 IAB0 Ectopic0 Multiple0 Live Births3 Comment: menarche 13 fftp 23 briefly breastfed FAMILY HISTORY Problem Relation Age of Onset Alzheimer's Disease Mother hypertension/stroke d89 Hypertension Mother Stroke Mother Heart Father heart failure, d 72 other (emphseyma) Sister d 59 other (healthy) Daughter other (healthy) Daughter other (healthy) Son Breast Cancer Maternal Aunt PAST MEDICAL HISTORY Diagnosis Date Breast cancer (HCC) 09/[address] Wood right ER positive s/p surgery/radiation and AI Collagenous colitis 07/30/2017 On biopsy 2012. Diarrhea hx of colitis Diffuse cystic mastopathy Dyspareunia Essential hypertension H/O complete eye exam 03/13/2011 no retinopathy detected -both eyes - [facility] - return in [address] - [address] [...] early 1970's Hysterectomy, CAROL, due to fibroids. Social History [...] Wine (5oz) per week Drug use: No documented in this encounter [facility] 01-04-2024 Miscellaneous Notes Please assist in scheduling with psychology. documented in this encounter [facility] 12-31-2023 Miscellaneous Notes LAST OV 11/16/23 FUTURE OV 03/28/24 Pharmacy electronically requests the following refill(s) Requested Prescriptions Pending Prescriptions Disp Refills labetalol (TRANDATE) 200 mg tablet [Pharmacy Med Name: LABETALOL HCL 200 MG TABLET] 180 tablet 1 Sig: Take 1 tablet by mouth two times a day. Silvina King MA documented in this encounter [facility] 10-22-2023 Telephone encounter Note Notified via [facility] 10-22-2023 Miscellaneous Notes Notified via The patient has pancreatic cyst. Radiology does not find any worrisome features with these cysts. The bile duct is stable in size since 2009. Patient should follow-up with her primary team and she can have a routine virtual visit with me if desired. documented in this encounter [facility] 10-18-2023 Telephone encounter Note The patient has pancreatic cyst. Radiology does not find any worrisome features with these cysts. The bile duct is stable in size since 2009. Patient should follow-up with her primary team and she can have a routine virtual visit with me if desired. [facility] Work Phone: 10-07-2023 Miscellaneous Notes Patient stated she requested [...] Patient aware RX will be sent to [facility] pharmacy. No need to notify patient. Mary Houser documented in this encounter [facility] 09-30-2023 Instructions Paul Bautista MD - 09/30/2023 12:17 PM EST Thank you for visiting the [facility] at the [facility]. Here are your instructions. 1. Will start Farxiga after the New Year. 2. Labs 1 week after starting. 3. Return in 6 months. Please message me with any issues on Farxiga. Please call with questions or concerns. 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 Her ntprobnp [...] 03/13/2011 no retinopathy detected -both eyes - [facility] - return in 1 year - Dr. Ruby hair thinning sees Dr Choudhary Hormone replacement therapy (HRT) 1974-present stopped by 09/2011 hx of low vitamin D treated 08/2007 20.4 recheck only 23 06/25 improved to 54 PMH - PAST MEDICAL HISTORY OF cardiac arrhythmia- resolved with change in medication Stage 3 chronic kidney disease ([facility]) 11/22/2019 Symptomatic states associated with artificial menopause [...] 70 Resp 15 Ht 167.6 cm (5' 6) Wt 59.9 kg (132 lb) SpO2 95% [...] Lymph 1.00 - 4.00 k/uL 1.67 1.87 Island% % 10.5 11.3 Abs Island <0.87 k/uL 0.46 0.50 Eosin% % 1.6 [...] diet, exercise, other non-medical management as above. Paul Bautista MD [facility] Section Of Heart Failure and Cardiac Transplant Medicine Heart and Vascular [place] [facility] Desk [address] [place] [address] documented in this encounter [facility] 09-30-2023 Evaluation note Diagnosis Chronic diastolic (congestive) heart failure (HCC)- Primary Stage 3a chronic kidney disease (HCC) documented in this encounter [facility]12-05-2023 Miscellaneous Notes* Telephone Encounter - Chidi Keller RN - 09/21/2023 8:30 AM EST Routing to the provider for review. documented in this encounterKet[facility]11-24-2023 History of Present illness Narrative* Liam Bull, PT - 09/10/2023 1:28 PM EST Program_ID:[id number] Access Code: [email or web address] URL: [email or web address] Date: 09-10-2023 Prepared By: Liam Bull Program Notes Exercises - Supine Lower Trunk [...] weekly - 2 - 10-15 * Liam Bull, PT - 09/10/2023 12:45 PM EST Episode Visit Count: 2 Therapist That Will Accept/Oversee The Plan Of Care: Liam uBll PT. Start of Care Date: 08/30/23 Onset [...] 1250 Session Stop Time : 1330 Liam Bull PT documented in this encounterKet[facility]11-22-2023 History of Present illness Narrative* Shalini Lopez, [facility] - 09/08/2023 11:00 AM EST Heart Failure [...] Not taking due to side effect Beta Cecilia YES - labetalol Target dose suboptimal - [...] medications --> PharmD will reach out to power plant manager to discuss retrial of SGLT2i (pt has f/up visit next month); will also discuss if it would be worth transitioning patient from labetalol to carvedilol given the extra morbidity/mortality data The patient verbalized understanding of the instructions. Patient taking SGLT2-I at conclusion of visit: No The patient is not taking SGLT2-I due to other tried Jardiance in past, open to discussing with power plant manager at upcoming appt . Follow up: See patient instructions The majority of the pharmacy visit (> 50%) was spent counseling and/or coordinating care for thepatient. Time was 35 minutes. documented in this encounterK[facility]11-16-2023 History of Present illness Narrative* Nadja Wylie [...] 02, 2023 10:51 AM documented in this encounterKet[facility]11-13-2023 History of Present illness Narrative* Liam Bull, PT - 08/30/2023 4:26 PM EST Program_ID:[id number] Access Code: [email or web address] URL: [email or web address] Date: 08-30-2023 Prepared By: Liam uBll Program Notes Exercises - Supine Lower Trunk [...] x weekly - 2 - * Liam Bull, PT - 08/30/2023 3:43 PM EST Episode Visit Count: 1 Therapist That Will Accept/Oversee The Plan Of Care: Liam Bull, PT. Start of Care Date: 08/30/23 Onset [...] of Care: created on 08/30/23 through 10/12/23 [place] in home exercise program. Patient will decrease [...] Planned: 4 Planned Treatment Interventions: Therapeutic exercise (81255), Neuromuscular re- education (27232), Manual therapy (71699), Therapeutic activities (43136), Self- snf management (14069), Gait Training (71064), Patient/Family/Caregiver Education PLAN FOR NEXT VISIT: Assess [...] attribute any specific activity that makes it worse. Reports right now she is in 0/10 pain. Denies B LE involvement. Patient Goals: Reduce chronic sharp, intermittent pain. Functional Limitations: sleeping Functional Limitation Comments: Exercising. Prior Level of Function: Independent without limitations Relevant History Past Relevant Medical Conditions: Hypertension Employment: Retired Recreation / Current Exercise: 3x/per week at [employer] - cardio machines; light machines Intake Information: Prescription present [...] program TREATMENT: PT Treatment Interventions: Therapeutic Exercise, Self-Custodial Management Evaluation Therapeutic Exercise: 1: *Supine LTR: 1x10 ea. 2: *Supine TA Bracinx10, 5 hold. 3: *Seated HS Stretch:2x30 4: *Supine BKFO: 1x10 ea. 5: *R SKC: 1x30 6: *Supine Glute Stretch to [place] Shoulder: 1x30 ea. Skilled Intervention: Patient was [...] facilitated with verbal, visual, and tactile cuing. Self-Custodial Management: 1: *Postural education. 2: *Discussed therapy [...] 1543 Session Stop Time : 1628 Liam Bull PT documented in this encounterKet[facility]10-30-2023 Miscellaneous Notes* Telephone Encounter - Katey Melo - 08/16/2023 9:38 AM EDT Patient last seen 02/2023 RX Minoxidil Please approve prescription and any additional refills and e-script to designated pharmacy. Thank you, Katey Melo documented in this encounterKettering [facility]10-20-2023 History of Present illness Narrative* Migel Garcia PA-C - 08/06/2023 10:58 AM EDT Images from the original note were not included. Migel [facility]C [facility] [address] [place] [address] 08/06/2023 ASSESSMENT AND PLAN: Assessment : Encounter [...] the pelvis and sacrum. She has tried career and guidance counselor, massage therapy every 2 weeks, acupuncture, TENS unit in the chiropractic office, and physical therapy a number of years ago. All of these things have given her moderate relief without long-lasting relief. She uses occasional Aleve for her symptoms and finds that walking on a treadmill seems to help a little bit too. She participates in daily exercising at the [facility] fitness [employer] in [facility]. EXAM Highlights: She mobilizes somewhat slowly from [...] perhaps try supervised PT again at the [facility]. She will return here if symptoms appreciably [...] today with this patient visit. This includes [id number]-[id number] time, review of chart records regarding conservative care history, spine- pertinent imaging, and communication/care coordination with referring provider, problem-specific history-taking and counseling/education regarding treatment options. cc: Susannah Clemente [address] [place] [phone] Results of consultation to be transmitted via electronic medical record for those providers who practice within [facility] or with access to [employer] via MD Connect, or via letter. ######################################################################## [...] 10 mL injection (DEFINITY) INTRAVENOUS DIRECTED PRN Le Orourke APRN.[employer] ASSEMBLER sodium chloride 0.9 % (flush) 10 mL (BD POSIFLUSH) 10 mL INTRAVENOUS DIRECTED PRN Le Orourke APRN.[employer] ASSEMBLER Allergies: Scopolamine, Amlodipine, Hctz [Thiazides], Hydralazine, Iron, [...] 03/13/2011 no retinopathy detected -both eyes - [facility] - return in 1 year [...] 125/67, pulse 69, height 166.4 cm (5' 5.5), weight 60.8 kg (134 lb 1.6 oz), [...] STUDIES: See discussion above documented in this encounterKet[facility]10-18-2023 History of Present illness Narrative* Fabiola Mendez [...] 04, 2023 12:48 PM documented in this encounterKettering [facility]10-09-2023 Instructions* Patient Instructions* Cristina Lara, RODY - 07/26/2023 2:14 PM EDT Images from the original note were not included. [facility] Head and Neck [place] Section of Audiology Thank you for trusting the [facility] Audiology department with your hearing healthcare today. [...] in perfect thank you for telling me thatboth ears. And I will be in in [...] technology, please call our scheduling line at [phone] and ask for a Hearing Aid Evaluation appointment at your preferred [facility] location. You can request this appointment with your patient care nursing assistant through [employer], as well. In order to investigate a potential insurance benefit for hearing aids, please plan to schedule your appointment for at least 1 week from the time of your phone call so that your insurance benefit can be verified. If there is no insurance benefit, please be aware there is a $100 [id number]-holijq fee due at time of service. Listed [...] standing). Recommendations: * Continue medical follow-up with Susannah Clemente MD . * The patient was counseled regarding the need to continue to monitor hearing and have regular hearing assessments. * The patient was counseled regarding effective communication strategies to enhance communication ability. * Call [phone] to schedule an appointment to assess your need for hearing aids. Request a HAE appointment. Thank you for trusting and choosing [facility] Audiology with your hearing care needs. Pleasedo not hesitate to reach out with any questions or concerns. Sincerely, RODY Dejesus, [facility] Clinical and Senior Hearing Implant Groundskeeper documented in this encounterKettering Health [facility]10-09-2023 History of Present illness Narrative* Cristina Lara AUD - 07/26/2023 1:45 PM EDT Head and Neck [place] AUDIOLOGIC EVALUATION REPORT Name: Zenaida Evans CCF#: [id number] Date of Service: 07/26/2023 Date of : 1935 Age: [age] year old Referred by: Susannah Clemente MD Referred for: Evaluation of suspected change in hearing, tinnitus, or balance. Referral documented: In an order in [facility] Patient's major complaints: Hearing loss: mostly difficult [...] evaluation of middle ear function. CPT code: 42757 RIGHT EAR: Did not test. LEFT EAR: Did not test. ACOUSTIC REFLEXES Description of procedure: This test is an objective measure of auditory and facial nerve pathways. CPT code: 50031, 37171 RIGHT EAR PROBE EAR: (ipsi right stimulus [...] and boneconduction and speech recognition testing. CPT code:75405 RIGHT EAR: Hearing Sensitivity: Mild sloping to [...] testing. RECOMMENDATIONS * Continue medical follow-up with Susannah Clemente MD . * The patient was counseled regarding the need to continue to monitor hearing and have regular hearing assessments. * The patient was counseled regarding effective communication strategies to enhance communication ability. * Call [phone] to schedule an appointment to assess your need for hearing aids. Request a HAE appointment. Rody Dejesus, [facility] Clinical and Senior Hearing Implant Groundskeeper copied to: Susannah Clemente MD [place] Abbrev- iation Definition Degree of hearing sensitivity dB range WNL within normal limits WNL 0 - 20 SNHL sensorineural hearing loss Mild 20-40 CHL conductive hearing loss Moderate 40-55 MHL mixed hearing loss Moderately-Severe 55-70 WRS word recognition score Severe 70-90 ME middle ear Profound 90 + TM tympanic membrane documented in this encounterKettering Health [facility] Center09-21-2023 History of Present illness Narrative* Tracy Chisholm, RT(R) - 07/08/2023 12:00 PM EDT RADIOLOGY [...] 12:35 PATIENT DISCHARGED TO: Ambulatory patient, left [place] department area. A Diagnostic radioactive procedure has taken place, with no further precautions necessary other than routine body substance precautions. More information regarding radiation safety can be found usingthis link: [email or web address] SIGNATURE: RT Bowen(R) PATIENT NAME: Zenaida Evans DATE: July 08, 2023 TIME: 12:46 PM PAGER/CONTACT #: documented in this encounterKettering Health [facility]09-18-2023 History of Present illness Narrative* Susannah Clemente MD - 07/05/2023 1:15 PM EDT [...] sexual function:Not at all denies bladder concerns. Mammoth anxious, stressed, angry, irritable, lonely, isolated, or had thoughts of hurting themself: Not at all Has little interest or pleasure in doing things: Several days Bothered by feeling down, depressed, or hopeless: Several days States stressful caring for . Is now at [facility], now getting rehab. Needs help with grocery shopping, cooking, housework, bathing, grooming, dressing, eating, sitting or standing, walking, using the toilet, handling finances, taking medications, using the telephone, or driving: Yes Ordering several meals a week from someone. 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 Driving okay. 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 Following safety precautions in the home [...] in the medical record. Dermatology new in [place] for Basal Cell Cardiology Gastroenterology Alicia Hylton for breast follow up. No need to follow up with Dr. Rodgers. Cuauhtemoc Maria for thumb issues. Medical/Family history review Reviewed [...] early 1969' Hysterectomy, CAROL, due to fibroids. Left thumb joint replaced 11/[address] Maria Opioid use review Patient is not currently using opioids. Depression screening Depression Screening PHQ-2 Score PHQ-9 Score 03/31/2023 2 7 PDMP website checked and validated. All prescriptions have been APPROPRIATELY filled. No suspiciousactivity was identified. 07/05/2023 by Susannah Clemente MD Depression screening tool completed and [...] (1.69m) Wt 133 lb 4 oz (60.4kg) WkL391% BMI 21.19 kg/(m^2). Hemoglobin (g/dL) Date Value [...] Abs Lymph 1.00 - 4.00 k/uL 1.81 Island% % 9.6 Abs Island <0.87 k/uL 0.41 Eosin% % 3.3 Abs [...] exercise - DXA-AXIAL SKELETON - CONSULT TO [facility] - HEARING TEST/AUDIOGRAM - [place] HEPATOBILIARY W [...] - [place] HEPATOBILIARY W EF AND/OR RX Susannah Clemente MD documented in this encounterKettering Health [facility]06-22-2023 History of Present illness Narrative* Kelsi Souza, PT - 04/08/2023 10:08 AM EDT Episode Visit Count: 1 Therapist That Will Accept/Oversee The Plan Of Care: Kelsi Souza Start of Care Date: 04/08/23 Onset Date: [...] visits planned) Planned Treatment Interventions: Therapeutic exercise (69646), Neuromuscular re- education (32875), Manual therapy (03860), Therapeutic activities (66943), Self- snf management (15053), Gait Training (29579), Patient/Family/Caregiver Education PLAN FOR NEXT VISIT: DC [...] States/Identifies, Return Demonstration TREATMENT: PT Treatment Interventions: Self-Custodial Management Evaluation Self-Custodial Management: 1: provided pt. education with images: [...] Total Treatment Time Minutes (timed/untimed): 30 Kelsi Souza PT documented in this encounterKettering Health [facility] Center06-16-2023 History of Present illness Narrative* Lyndsay Krishnamurthy - 04/02/2023 12:26 PM EDT EVENT MONITOR DISPOSABLE PATCH INSTRUCTIONS Patient Name: Zenaida Evans [facility] Number: [id number] Skin prepped and cleansed with alcohol Patch secured to prepped area Monitor Activated Serial #: [id number] Patient Instructed: Prescribed order timeframe Bathing guidelines Usage of event button and diary documentation Return of monitor at the end of prescribed order Call with problems [phone] or [phone]. [phone] Patient expresses a good understanding of instructions Lyndsay Krishnaumrthy documented in this encounterKettering Health [facility]06-15-2023 History of Present illness Narrative* Kelsi Ortez [...] 01, 2023 10:12 AM documented in this encounterKettering Health [facility] Center06-06-2023 History of Present illness Narrative* Susannah Clemente MD - 03/23/2023 4:56 PM EDT Patient presents with: Follow Up Didn't want to take too much tramadol. States taking more ibuprofen. Not sure where the back pain came from. Didn't do physical therapy. 2 wks ago pain was 7/10, now about a 4/10. BP 130/62 Pulse 75 Temp 36.8 C (98.2 F) (Oral) Ht 167.6 cm (5' 6) Wt 59.4 kg (131 lb) SpO2 96% [...] ICD10: R10.816 Reviewed prior EGD benign in 2019. Recommend start famotidine. Patient reports no benefit from Prilosec in the past. - FAMOTIDINE 20 MG TABLET - US ABD RIGHT UPPER QUADRANT 3. Thoracogenic scoliosis, unspecified spinal region - ICD9: 737.34, ICD10: M41.30 Recommend proceed with PT. If without improvement can try acupuncture. - CONSULT FOR ACUPUNCTURE Return if symptoms worsen or fail to improve. Susannah Clemente MD documented in this encounterKettering Health [facility]05-22-2023 Miscellaneous Notes* Telephone Encounter - [...] yes, no; LMP) N/a Protocols used: Back [id number] documented in this encounterKettering Health [facility] Center05-09-2023 Miscellaneous Notes* Telephone Encounter - Tara Orona MA - 02/23/2023 10:23 AM EDT Gave message to patient, expressed understanding Mailed to patient * Telephone Encounter - Susannah Clemente MD - 02/23/2023 10:05 AM EDT Order printed in my outbox. documented in this encounterKettering Health [facility] So[facility] Center04-15-2023 History of Present illness Narrative* Kelsi Zavala APRN.[facility] - 01/30/2023 9:53 AM EDT This note was created using [employer]. Subjective Zenaida Evans is a 87 year [...] provided by the patient. No english language learner tutor was used. Sore Throat This is a [...] 03/13/2011 no retinopathy detected -both eyes - [facility] - return in 1 year - Dr. [...] and/or still sick in one week Kelsi Zavala APRN.URMILA documented in this encounterKettering Health [facility] Center03-22-2023 Miscellaneous Notes* Letter - Mammography Coordinator - 01/06/2023 4:13 PM EDT January 07, 2023 PID: [id number] Zenaida Evans [address] [place] [address] Dear Ms. Evans, We are pleased to [...] report will be kept on file at [facility] as part of your permanent medical record and are available for your continuing care. Thank you for allowing us to help in meeting your health care needs. Sincerely, Dr. Laughlin Interpreting Radiologist [facility] (Normal over 40) documented in this encounterKettering Health [facility] Center03-21-2023 History of Present illness Narrative* Barbara Paulino, RT(R) - 01/05/2023 3:30 PM EDT Radiology Service Progress Note PATIENT [...] IV DATA: Not applicable SIGNED BY: RT Lidia(R) January 05, 2023 3:35 PM documented in this encounterKettering Health [facility] Center03-21-2023 History of Present illness Narrative* Alicia Hylton APRN.[employer] ASSEMBLER - 01/05/2023 3:05 PM EDT MEDICAL BREAST PATIENT NAME: Zenaida Evans REASON FOR VISIT: Annual Exam and Mammogram HISTORY of PRESENT ILLNESS: 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 [...] with findings of IDC nuclear grade 2, ER+(95%)/ND+(80%)/HER2-. She underwent a right NL PM with [...] D 2000 units. BMD: Yes, Date in Epic: 01/02/21; lowest T Score - 0.8-Normal PERSONAL BREAST HISTORY: Past breast history (prior to this encounter) is as follows: Breast biopsy: Yes, Right stereo bx 03/25-benign; right stere bx 03/26 benign; 09/27 Right core bx IDC at 12 o'clock position Breast cysts: No Breast surgery: Yes, 10/29 PM with SLN bx; Left ex bx-1990- Breast cancer: Yes, Stage I (T 1c N 0 M 0) in 09/27, treated as above CANCER SURVEILLANCE: Mammograms: Yes, Date in Epic: 08/18/21; results - Negative michelle Breast MRI: Yes, Date in [facility]: 08/15/12; results - Negative Colonoscopy: Yes, Date in [facility]: 09/08/13; results - Diverticulosis-repeat in 10 yrs [...] 03/13/2011 no retinopathy detected -both eyes - [facility] - return in 1 year - Dr. [...] which included preparing to see the patient, [id number] patient care, completing clinical documentation, obtaining and/or reviewing separately obtained history, performing a medically appropriate examination, counseling and educating the pat ient/family/caregiver, ordering medications, tests, or procedures, communicating results to the patient/family/caregiver, and care coordination (not separately reported). Alicia Hylton APRN.URMILA Medical Breast Specialist Women's Health Nurse Practitioner CC: Susannah Clemente MD [facility] [place] [address] documented in this encounterKettering Health [facility]02-07-2023 History of Present illness Narrative* Erwin Maria MD - 11/24/2022 11:38 AM ESTAssociated Order(s): [...] Breast cancer (HCC) 09/[address] Nina right ER positive s/p surgery/radiation and AI Collagenous colitis 07/30/2017 On biopsy 2012. Diarrhea hx of colitis Diffuse cystic mastopathy Dyspareunia Essential hypertension H/O complete eye exam 03/13/2011 no retinopathy detected -both eyes - [facility] - return in 1 year - [...] 10 mL injection (DEFINITY) INTRAVENOUS DIRECTED PRN Le Orourke APRN.URMILA sodium chloride 0.9 % (flush) 10 mL (BD POSIFLUSH) 10 mL INTRAVENOUS DIRECTED PRN Le Orourke APRN.[employer] ASSEMBLER ALLERGIES Allergen Reactions Scopolamine Mental Status Change [...] patient management with Palomo Pierson Pa-C. The JOHNNA's progress note has been reviewed, edited, and signed. I was present for any and all procedures performed at this visit. Additional Injections: L thumb A1 for trigger finger Informed Consent Consent Obtained: Verbal [place] Protocol A moment to CARE was completed. [...] of Care Visit completed when applicable Erwin Maria MD documented in this encounterKettering Health [facility] Center02-03-2023 Instructions* Patient Instructions* Le Orourke APRN.CNP - 11/20/2022 11:27 AM EST -No medication changes today. -Please have blood work drawn on 01/12/2023 and I will follow-up with you when I get the results. -Follow-up with Dr. Bautista on 04/02/2023 with echo (if possible). documented in this encounterKettering Health [facility]02-03-2023 History of Present illness Narrative* Le Orourke APRN.CNP - 11/20/2022 10:26 AM EST Images from the original note were not included. Heart and Vascular [place] [facility] SECTION OF HEART FAILURE and CARDIAC TRANSPLANT MEDICINE OUTPATIENT VISIT DATE 11/20/2022 PRIMARY CARE PHYSICIAN: Susannah Clemente [facility] [place] [address] PRIMARY HEART FAILURE ASPARAGUS BUNCHER: Dr. Bautista CHIEF COMPLAINT: Follow-up HISTORY OF [...] 03/13/2011 no retinopathy detected -both eyes - [facility] - return in 1 year - Dr. [...] 137/68 Pulse 76 Ht 167.6 cm (5' 6) Wt 61.9 kg (136 lb 8 oz) [...] 0.1 mg patch weekly Device therapy: no, eek QRS: 80 ms Sleep apnea: no Anemia: [...] exercise, other non- medical management as above. Le Orourke MSN, ACNP-BC, CHFN, [facility] Section Of Heart Failure and Cardiac Transplant Medicine Heart [place]ascular [place] [facility] Desk [place] [id number] documented in this encounterKettering Health [facility]01-12-2023 Miscellaneous Notes* Telephone Encounter - Keyona Mckeon - 10/29/2022 9:38 AM EST Patient informed. * Telephone Encounter - Susannah Clemente MD - 10/29/2022 9:33 AM EST Please inform of unviewed mychart results (kidney us): Your kidney ultrasound reveals benign findings and there is no evidence of urinary retention. Dr. Clemente Written by Susannah Clemente MD on 10/22/2022 7:28 PM EST documented in this encounterKettering Health [facility]12-22-2022 Miscellaneous Notes* Telephone Encounter - Crystal Leahy LPN - 10/08/2022 1:37 PM EST Patient spouse notified of results, verbalizes understanding of instructions. He will tell Pt. Crystal Leahy LPN * Telephone Encounter - Sandhya Martinez APRN.URMILA - 10/08/2022 10:33 AM EST Patient's symptoms should be improving on the antibiotic according to culture. If patient symptoms are worsening patient should follow-up with primary care provider. documented in this encounterKettering Health [facility] Center12-22-2022 History of Present illness Narrative* Kelsi Ortez [...] Not applicable SIGNED BY: Kelsi Ortez RDMS T October 08, 2022 11:09 AM documented in this encounterKettering Health [facility]12-19-2022 History of Present illness Narrative* Ramandeep Nieto [...] 03/13/2011 no retinopathy detected -both eyes - [facility] - return in 1 year - [...] dip. Ramandeep Nieto PA-C documented in this encounterKettering Health [facility]12-15-2022 History of Present illness Narrative* Susannah Clemente MD - 10/01/2022 2:52 PM EST [...] Abs Lymph 1.00 - 4.00 k/uL 2.10 Island% % 10.4 Abs Island <0.87 k/uL 0.50 Eosin% % 3.3 Abs [...] Return in about 3 months (around 12/30/2022). Susannah Clemente MD documented in this encounterKettering Health [facility] Center12-15-2022 Evaluation note* Diagnosis Stage 3 chronic kidney [...] kidney disease (HCC) documented in this encounter [facility]11-28-2022 History of Present illness Narrative* Rosendo Rodgers MD - 09/14/2022 2:43 PM EST Phone call. Reviewed labs, hemoglobin normal. Plan recheck in spring. 10 minute phone call. Rosendo Rodgers MD September 14, 2022 documented in this encounterKettering Health [facility]11-25-2022 Miscellaneous Notes* Telephone Encounter - Letitia Kaufman - 09/11/2022 8:46 AM EST Alecia Care Coordination FOLLOW-UP NOTE Patient identified by name and date of . YES Spoke to patient Summary: (Reason for follow-up) I spoke with lucy Espinoza labs are in. She verbalized understanding. No further questions. Care Coordination Plan: No further follow up needed at this time Letitia Kaufman RN September 11, 2022 * Telephone Encounter - Lesli Morgan APRN.CNP - 09/11/2022 8:17 AM EST Lab orders placed. Please let patient know. Lesli Morgan APRN.CNP * Telephone Encounter - Kaity Maczada - 09/09/2022 11:56 AM EST Patient calling and asking for Dr. Rodgers to place her lab orders needed before her appointmenton Wednesday. Please call the patient once the orders are in at [phone]. Thank you documented in this encounterKettering Health [facility] Center11-16-2022 Instructions* Patient Instructions* Paul Bautista MD - 09/02/2022 1:56 PM EST Thank you for visiting the [facility] at the [facility]. Here are your instructions. 1. Only take your furosemide as needed for weight gain of 3lbs in a day or 5lbs in a week. 2. Start indapamide 1.25mg per day. 3. Obtain labs in 1 week. 4. Return in 3 months with LOSS PREVENTION SUPERVISOR and 6 months with me. Please call with questions or concerns. Office: [phone] Paul Bautista MD documented in this encounterKettering Health [facility] Center11-16-2022 History of Present illness Narrative* Paul Bautista MD - 09/02/2022 1:15 PM EST Images from the original note were not included. Heart and [place]ascular [place] [facility] SECTION OF HEART FAILURE and CARDIAC TRANSPLANT MEDICINE OUTPATIENT VISIT DATE September 02, 2022 OUTPATIENT VISIT TYPE Established Patient PRIMARY CARE PHYSICIAN: Susannah Clemente [address] [place] [address] CHIEF COMPLAINT: Feeling well NURSING INTAKE (Patient [...] in 04/2020 when she presented to her power plant manager with peripheral edemarequiring furosemide. Her ntprobnp had [...] 03/13/2011 no retinopathy detected -both eyes - [facility] - return in 1 year - [...] 70 Resp 15 Ht 168.9 cm (5' 6.5) Wt 60.3 kg (133 lb) SpO2 97% [...] diet, exercise, other non-medical management as above. Paul Bautista MD [facility] Section Of Heart Failure and Cardiac Transplant Medicine Heart [facility] [place] [place] [facility] Desk [address] [place] [address] documented in this encounterKettering Health [facility] Center10-20-2022 Miscellaneous Notes* Telephone Encounter - Megan Sanchez [...] this time. * Telephone Encounter - Nadja Mosley [facility] - 08/06/2022 12:02 PM EDT Pt calling for a refill on her Ipratropium .06% spray. I did not see it on med list. Thank you! documented in this encounterKettering Health [facility] Center10-05-2022 Miscellaneous Notes* Telephone Encounter - Michelle Choudhary MD - 07/22/2022 5:36 PM EDT Zenaida Evans is a 87 year old female Refilled oral minoxidil 1.25 a day Michelle Choudhary MD documented in this encounterKettering Health [facility] Center09-29-2022 History of Present illness Narrative* Susannah Clemente MD - 07/16/2022 11:47 AM EDT Patient presents with: Follow Up States was at [facility] and looked into the water. States did look into it earlier. The govt had a bill. Some of the chemicals are: Benzene (discussed possible effect on bone marrow AML, CLL) Tetrachloroethylene (discussed acute toxicity, neuro, pulmonary and GI) Trichloroethylene Vinyl Chloride (liver cancer). Discussed and will check in with them. States blood pressure at home has been very good. Did see Biostatistics Teacher who ran a 24 hour blood pressure. [...] ICD9: V03.89, ICD10: Z23 (primary diagnosis) - [employer] COVID-19 BIVALENT BOOSTER VACCINE, AGE 12+ YR [...] Return in about 3 months (around 10/15/2022). Susannah Clemente MD documented in this encounterKettering Health [facility] Center08-15-2022 History of Present illness Narrative* Dennys Guzman MD - 06/01/2022 10:01 AM EDT Ambulatory Blood Pressure Monitoring (ABPM) Report Patient: Zenaida Evans : 1935 Referring Physician: Paul Bautista MD Date of Recordin05/22/22 Patient s [...] by mouth two times a week. Lmefol Qw-oehsyf-lfX03-algal (CEREFOLIN NAC, ALGAL OIL,) 6 mg-600 mg- [...] Pressure in Adults: A Report of the [place] [employer]/[place] Heart Association Task Force on Clinical Practice Guidelines. Hypertension. 2018 Mar;71(6):k21-n256. Epub 2016Aug 30. The ABPM should be [...] all individual readings will be scanned into [employer], which can be reviewed under scanned documents. Dennys Guzman MD documented in this encounterKettering Health [facility] Center08-01-2022 Instructions* Patient Instructions* Paul Bautista MD - 05/18/2022 10:27 AM EDT Thank you for visiting the [facility] for [facility] at the [facility]. Here are your instructions. I'm concerned your [...] Please call with questions or concerns. Office: [phone] Paul Bautista MD documented in this encounterKettering Health [facility] Center08-01-2022 History of Present illness Narrative* Paul Bautista MD - 05/18/2022 9:30 AM EDT Images from the original note were not included. Heart and [place]ascular [place] [facility] SECTION OF HEART FAILURE and CARDIAC TRANSPLANT MEDICINE OUTPATIENT VISIT DATE May 18, 2022 OUTPATIENT VISIT TYPE Consultation PRIMARY CARE PHYSICIAN: Susannah Clemente [address] [place] [address] CHIEF COMPLAINT: Shortness of breath NURSING INTAKE [...] in 04/2020 when she presented to her power plant manager with peripheral edemarequiring furosemide. Her ntprobnp had [...] 03/13/2011 no retinopathy detected -both eyes - [facility] - return in 1 year - Dr. [...] by mouth two times a week. Lmefol Kp-nalsty-nfU83-algal (CEREFOLIN NAC, ALGAL OIL,) 6 mg-600 mg- [...] Adult) Pulse 64 Ht 167.6 cm (5' 6) Wt 62.3 kg (137 lb 6.4 oz) [...] unsupervised cluster analysis. Eur J Heart Fail. 2019;22(1):148-158. doi: 10.1002/ejhf.1621. Epub 2018Aug 07. PMID: [id number]. PLAN AND RECOMMENDATIONS: 86 yo male with [...] LVH or low voltage and her echocardiogram [id number] does not show any overt cardiac remodeling. She has NYHA class IIIa symptoms when dealing withinclines. Given her NTprobnp, will start SGLT2i. We had a discussion about urogenital infections. In addition, we discussed possibilities of fluctuation in eGFR but overall, SGLT2i being very good for renal function product safety test engineer. We will also assess ambulatory blood pressure [...] diet, exercise, other non-medical management as above. Paul Bautista MD [facility] Section Of Heart Failure and Cardiac Transplant Medicine Heart and [place]ascular [place] [facility] Desk J[address] [place] [address] documented in this encounterKettering Health [facility] Center07-28-2022 Instructions* Patient Instructions* Jodi Hatfield RN - [...] / SAFETY CHECKLIST Procedure to be Performed: Michelle Choudhary MD Sign In: A Moment of [...] completed when applicable. Clinical Derm Staff: Dr. Michelle Choudhary Cryosurgery performed with Liquid Nitrogen via cryostat spray gun to Warts. 2 lesion(s) treated. Patient tolerated well. Wound care instructions provided, pt verbalizes understanding. RTC: 6 months, lentigines removal at patients earliest convienence documented in this encounterKettering Health [facility] Center07-28-2022 History of Present illness Narrative* Michelle Choudhary MD - 05/14/2022 10:30 AM EDT [...] 03/13/2011 no retinopathy detected -both eyes - [facility] - return in 1 year - Dr. [...] by mouth two times a week. Lmefol Qx-tmhwgo-gmY09-algal (CEREFOLIN NAC, ALGAL OIL,) 6 mg-600 mg- [...] Abs Lymph 1.00 - 4.00 k/uL 1.40 Island% % 11.2 Abs Island <0.87 k/uL 0.40 Eosin% % 2.2 Abs [...] / SAFETY CHECKLIST Procedure to be Performed: Michelle Choudhary MD Sign In: A Moment of [...] completed when applicable. Clinical Derm Staff: Dr. Michelle Choudhary Cryosurgery performed with Liquid Nitrogen via cryostat spray gun to Warts. 2 lesion(s) treated. Patient tolerated well. Wound care instructions provided, pt verbalizes understanding. RTC: 6 months, lentigines removal at patients earliest convienence (okay to add on) The documentation for this note was completed by Jodi Hatfield RN acting as scribe for Michelle Choudhary MD. I also have reviewed and agree with the assessment and plan as stated above and agree with all of its relevant components. There were no procedures performed during this patient's visit. I spent a total of 25 minutes on the date of service preparing to see the patient, [id number] patient care, completing clinical documentation, obtaining and/or reviewing separately obtained history, performing a medically appropriate examination and counseling and educating the patient/family/aged or disabled care worker Michelle Choudhary MD documented in this encounterKettering Health [facility]07-01-2022 History of Present illness Narrative* Rosendo Rodgers MD - 04/17/2022 11:04 AM EDT HISTORY OF PRESENT ILLNESS: Zenaida Evans is a 86 year old [...] 03/13/2011 no retinopathy detected -both eyes - [facility] - return in 1 year - Dr. [...] by mouth two times a week. Lmefol Au-xhxvfb-fiQ09-algal (CEREFOLIN NAC, ALGAL OIL,) 6 mg-600 mg- [...] which included preparing to see the patient, [id number] patient care, completing clinical documentation, obtaining and/or reviewing separately obtained history, counseling and educating the patient/family/caregiver, independently interpretin g results (not separately reported) and communicating results to the patient/family/caregiver. Electronically Signed: Rosendo Rodgers MD April 17, 2022 11:04 AM documented in this encounterKettering Health [facility] Center06-28-2022 History of Present illness Narrative* Susannah Clemente MD - 04/14/2022 10:09 AM EDT Patient presents with: Follow Up Had appointment with hematology, changed the date. At home highest blood pressure is low 130's. Forgot meds this morning. Ever since diagnosed with congestive heart failure, had some concerns. States the Biostatistics Teacher didn't have any significant. Would like to see cardiology clinic for hfpef. Has a number. Also with ckd.Is starting to get more shortness of breath on an incline. Reviewed echo with normal lv systolic and diastolic dysfunction. BP 171/97 Pulse 80 Temp 36.6 C (97.8 F) (Oral) Ht 166.4 cm (5' 5.5) Wt 61.2 kg (135 lb) SpO2 97% [...] 4.00 k/uL 2.30 1.53 1.79 1.92 1.77 Island% % 10.9 10.5 11.8 11.5 12.1 Abs Island <0.87 k/uL 0.54 0.42 0.70 0.48 0.51 [...] a consultation with the heart failure clinic downw. Referred reviewed last echo with normal left [...] for same day or pcp flex slot.. Susannah Clemente MD documented in this encounterKettering Health [facility]06-07-2022 History of Present illness Narrative* Erwin Maria MD - 03/24/2022 11:19 AM EDT Post [...] will continue her HEP. RTC prn. Erwin Maria MD March 24, 2022 11:19 AM documented in this encounterKettering Health [facility] Center05-05-2022 Miscellaneous Notes* Telephone Encounter - Sally Ha RN - 02/19/2022 3:29 PM EDT Left message to call office. * Telephone Encounter - Sally Ha RN - 02/19/2022 3:16 PM EDT ----- Message from Susannah Clemente MD sent at 02/19/2022 12:36 PM EDT ----- Persistent anemia despite good iron stores. Recommend follow-up with hematology. I referred patientto hematology in 2019, but is not having difficulty finding any note. Find out if she saw them at that time. Please assist in canceling. documented in this encounterKettering Health [facility]05-03-2022 History of Present illness Narrative* Leigh Abreu [...] would like to follow up with Dr. Maria in 4 weeks for closure and she may call me directly with any questions or concerns. Doing well. Megan Abreu RN February 17, 2022 11:05 AM documented in this encounterKettering Health [facility]04-26-2022 History of Present illness Narrative* Kelsi Rosa, DARIN/Cathryn - 02/10/2022 2:26 PM EDT Episode Visit Count: 6 Therapist That Will Oversee The Plan Of Care: oMe Start of Care Date: 12/23/21 Onset Date: [...] WITH LEVEL OF FUNCTION: Hand Strength L Cardiograph Operator Position 2 (lbs): 36 lbs UE AROM [...] facilitated with verbal, visual and tactile cuing. Self-Custodial Management: 1: Conitnue with comfort cool for [...] 43 ANSON Diaz, OTD documented in this encounterKettering Health [facility]04-19-2022 NoteHNO ID: [id number] Author: DEBORAH Saleem Service: ? Author Type: [...] as thumb continues to progress. Able unload net developer with wcf w/ surgical hand. Pain: Pain Pain Level: [...] compliance. Billing Therapeutic Exercise Treatment Minutes: 40 Laverne Helms OT/[facility] [id number] History of Present illness Narrative* DEBORAH Saleem - 02/03/2022 3:50 PM EDT Episode Visit [...] as thumb continues to progress. Able unload net developer with wcf w/ surgical hand. Pain: Pain Pain Level: [...] Minutes: 40 DEBORAH Saleem documented in this encounterKettering Health [facility] Center04-12-2022 NoteHNO ID: [id number] Author: DEBORAH Saleem Service: ? Author Type: Occupational Therapist Type: Progress Notes Filed: 01/27/2022 12:27 PM Note Text: The patient did not show up for this appointment.[facility] [id number] History of Present illness Narrative* DEBORAH Saleem - 01/27/2022 12:26 PM EDT The patient did not show up for this appointment. documented in this encounterKettering Health [facility]04-05-2022 Miscellaneous Notes* Addendum Note - DEBORAH Diza - 01/20/2022 10:12 AM EDT Addended by: KELSI ROSA on: 01/20/2022 10:12 AM Modules accepted: Orders documented in this encounterKettering Health [facility]04-05-2022 History of Present illness Narrative* [...] cool for day use. Was seen by orthopedic cast specialist in therapy, and doing well from OT [...] on 12/23/21 through 03/17/22 Update: 01/20/22 Goal [place] A: Achieved PA: Partially Achieved NA: Not [...] gardening tasks New goal: Patient will increase credit underwriter strength to 30# or greater with left hand in order to complete meal preparation and moderate daily tasks. Planned Interventions, Frequency, and Duration: 1x/week, 4 weeks Total Number of Visits Planned: 4 Planned Treatment Interventions: Custom orthosis fabrication;Prefabricated orthosis fitting;Self-snf management (18827);Therapeutic exercise (13536) PLAN FOR NEXT VISIT: heat, motion, progress with strength (possible putty) SUBJECTIVE: 8 wks s/p arthroplasty and suspensionplasty of L thumb. Patient has been wearing OTS thumb spica on surgical thumb for day/night use. Reports as time goes on she is able to complete lightdaily tasks as thumb continues to progress. Able unload net developer with wcf w/ surgical hand. Functional Limitations: lifting;heavy exertion;cleaning;dressing;cooking;carrying;pushing;pulling;gripping;weight [...] Location: Left thumb/wrist Edema Description: Mild Strength: Cardiograph Operator Position 2;Pinch Meter Sensation: Denies tingling or numbness Hand Strength R Cardiograph Operator Position 2 (lbs): 53 lbs L Cardiograph Operator Position 2 (lbs): 20 lbs R Lateral [...] in squeezes, pinches, and finger add w/ [place] resistant eggs. Pt returned demo -written handout [...] 8-10 reps, hold for 10 sec. 2: [place] Egg: Squeezes, pinches (each finger), and squeezes [...] 50 BEN Diaz/Cathryn, OTD documented in this encounterCleveland [id number] History of Present illness Narrative* Leigh Abreu [...] 20, 2022 10:15 AM documented in this encounterKettering Health [facility]03-29-2022 NoteHNO ID: [id number] Author: Laverne Helms OT/Cathryn Service: ? Author Type: Occupational [...] radial and palmar abduction 4: Soft sponge credit underwriter manipulate and order picker/assembler Skilled Intervention: Patient was educated in proper exercise technique and purpose for exercises. Skilled judgment was provided in selection of appropriate interventions. Billing Therapeutic Exercise Treatment Minutes: 40 Laverne Helms OT/[facility] [id number] NoteHNO ID: [id number] Author: Laverne Helms OT/Cathryn Service: ? Author Type: Occupational [...] interventions. Billing Therapeutic Exercise Treatment Minutes: 45 Laverne Scooter, OT/[facility] [id number] History of Past illness Narrative * Problem [...] 1.1-1.2) CK/CKMB negative. [facility]. 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 [facility] transferred [facility]. 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 Patient transferred to [facility] for further evaluation. 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 Patient transferred to [facility] for further evaluation. 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 Patient transferred to [facility] for further evaluation. 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 [facility]. 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 [facility] transferred [facility]. 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 Patient transferred to [facility] for further evaluation. 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 Patient transferred to [facility] for further evaluation. OSH Echo 10/2019 [...] left shoulder 03/01/2019 09/19/2020 Atrophy of gluteus reinaldo muscle 01/17/2019 09/19/2020 Bilateral leg weakness 04/06/201809/19 [...] of this encounter (statuses as of 08/05/2023) [facility] History of Past illness Narrative* Problem Noted [...] creatine- 1.1-1.2) CK/CKMB negative. Patient transferred to [facility] for further evaluation. OSH Echo 10/2019 [...] left shoulder 03/01/2019 09/19/2020 Atrophy of gluteus reinaldo muscle 01/17/2019 09/19/2020 Bilateral leg weakness 04/06/201809/19 [...] of this encounter (statuses as of 08/06/2023) [facility]03-08-2022 History of Past illness Narrative* Problem Noted [...] creatine- 1.1-1.2) CK/CKMB negative. Patient transferred to [facility] for further evaluation. OSH Echo 10/2019 [...] left shoulder 03/01/2019 09/19/2020 Atrophy of gluteus reinaldo muscle 01/17/2019 09/19/2020 Bilateral leg weakness 04/06/201809/19 [...] of this encounter (statuses as of 08/17/2023) [facility]03-08-2022 History of Past illness Narrative* Problem Noted [...] 1.1-1.2) CK/CKMB negative. Patient [facility]. OSH Echo 10/2019 EF [...] left shoulder 03/01/2019 09/19/2020 Atrophy of gluteus reinaldo muscle 01/17/2019 09/19/2020 Bilateral leg weakness 04/06/201809/19 [...] of this encounter (statuses as of 08/18/2023) [facility]03-08-2022 History of Past illness Narrative* Problem Noted [...] creatine- 1.1-1.2) CK/CKMB negative. Patient transferred to [facility] for further evaluation. OSH Echo 10/2019 [...] left shoulder 03/01/2019 09/19/2020 Atrophy of gluteus reinaldo muscle 01/17/2019 09/19/2020 Bilateral leg weakness 04/06/201809/19 Strain of rotator cuff 01/06/201709/19 Localized edema 11/10/2016 09/19/2020 Abnormality of gait 09/09/2015 09/19/20 20 Tendinopathy of left gluteus medius 08/23/2014 09/19/2020 Greater trochanteric bursitis of left hip 08/07/2014 09/19/2020 Left hip impingement syndrome 08/07/2014 09/19/2020 Colitis 04/13/2014 07/30/2017 Stiffness in joint 12/02/2011 0 Right Breast Cancer 10/13/2011 03/24/20 23 Overview: Right breast radiation, no chemo. [...] of this encounter (statuses as of 08/20/2023) [facility]03-08-2022 History of Past illness Narrative* Problem Noted [...] creatine- 1.1-1.2) CK/CKMB negative. Patient transferred to [facility] for further evaluation. OSH Echo 10/2019 [...] left shoulder 03/01/2019 09/19/2020 Atrophy of gluteus reinaldo muscle 01/17/2019 09/19/2020 Bilateral leg weakness 04/06/201809/19 [...] of this encounter (statuses as of 08/20/2023) [facility]03-08-2022 History of Past illness Narrative* Problem Noted [...] left shoulder 03/01/2019 09/19/2020 Atrophy of gluteus reinaldo muscle 01/17/2019 09/19/2020 Bilateral leg weakness 04/06/201809/19 [...] of this encounter (statuses as of 08/20/2023) [facility]03-08[facility]2022 History of Past illness Narrative* Problem Noted [...] creatine- 1.1-1.2) CK/CKMB negative. Patient transferred to [facility] for further evaluation. OSH Echo 10/2019 [...] left shoulder 03/01/2019 09/19/2020 Atrophy of gluteus reinaldo muscle 01/17/2019 09/19/2020 Bilateral leg weakness 04/06/201809/19 [...] of this encounter (statuses as of 08/20/2023) [facility]03-08-2022 History of Past illness Narrative* Problem Noted [...] creatine- 1.1-1.2) CK/CKMB negative. Patient transferred to [facility] for further evaluation. OSH Echo 10/2019 [...] left shoulder 03/01/2019 09/19/2020 Atrophy of gluteus reinaldo muscle 01/17/2019 09/19/2020 Bilateral leg weakness 04/06/201809/19 [...] of this encounter (statuses as of 08/20/2023) [facility]03-08[facility] History of Past illness Narrative* Problem Noted [...] creatine- 1.1-1.2) CK/CKMB negative. Patient transferred to [facility] for further evaluation. OSH Echo 10/2019 [...] left shoulder 03/01/2019 09/19/2020 Atrophy of gluteus reinaldo muscle 01/17/2019 09/19/2020 Bilateral leg weakness 04/06/201809/19 [...] of this encounter (statuses as of 08/22/2023) [facility]03-08-2022 History of Past illness Narrative* Problem Noted [...] creatine- 1.1-1.2) CK/CKMB negative. Patient transferred to [facility] for further evaluation. OSH Echo 10/2019 [...] left shoulder 03/01/2019 09/19/2020 Atrophy of gluteus reinaldo muscle 01/17/2019 09/19/2020 Bilateral leg weakness 04/06/201809/19 [...] of this encounter (statuses as of 08/31/2023) [facility]03-08-2022 History of Past illness Narrative* Problem Noted [...] creatine- 1.1-1.2) CK/CKMB negative. Patient transferred to [facility] for further evaluation. OSH Echo 10/2019 [...] left shoulder 03/01/2019 09/19/2020 Atrophy of gluteus reinadlo muscle 01/17/2019 09/19/2020 Bilateral leg weakness 04/06/201809/19 [...] of this encounter (statuses as of 09/02/2023) [facility]03-08-2022 History of Past illness Narrative* Problem Noted [...] 1.1-1.2) CK/CKMB negative. Patient transferred [facility]. OSH Echo 10/2019 EF [...] left shoulder 03/01/2019 09/19/2020 Atrophy of gluteus reinaldo muscle 01/17/2019 09/19/2020 Bilateral leg weakness 04/06/201809/19 [...] of this encounter (statuses as of 09/08/2023) [facility]03-08[facility]20[facility] History of Past illness Narrative* Problem Noted [...] left shoulder 03/01/2019 09/19/2020 Atrophy of gluteus reinaldo muscle 01/17/2019 09/19/2020 Bilateral leg weakness 04/06/201809/19 [...] of this encounter (statuses as of 09/10/2023) [facility]03-08[facility]2022 History of Past illness Narrative* Problem Noted [...] creatine- 1.1-1.2) CK/CKMB negative. Patient transferred to [facility] for further evaluation. OSH Echo 10/2019 [...] left shoulder 03/01/2019 09/19/2020 Atrophy of gluteus reinaldo muscle 01/17/2019 09/19/2020 Bilateral leg weakness 04/06/201809/19 [...] of this encounter (statuses as of 09/21/2023) [facility]03-08[facility]2022 History of Past illness Narrative* Problem Noted [...] creatine- 1.1-1.2) CK/CKMB negative. Patient transferred to [facility] for further evaluation. OSH Echo 10/2019 [...] left shoulder 03/01/2019 09/19/2020 Atrophy of gluteus reinaldo muscle 01/17/2019 09/19/2020 Bilateral leg weakness 04/06/201809/19 [...] of this encounter (statuses as of 10/01/2023) [facility]03-08-2022 History of Past illness Narrative* Problem Noted [...] 1.1-1.2) CK/CKMB negative. Patient transferred [facility]. OSH Echo 10/2019 EF [...] left shoulder 03/01/2019 09/19/2020 Atrophy of gluteus reinaldo muscle 01/17/2019 09/19/2020 Bilateral leg weakness 04/06/201809/19 [...] of this encounter (statuses as of 10/08/2023) [facility]03-08-2022 History of Past illness Narrative* Problem Noted [...] creatine- 1.1-1.2) CK/CKMB negative. Patient transferred to [facility] for further evaluation. OSH Echo 10/2019 [...] left shoulder 03/01/2019 09/19/2020 Atrophy of gluteus reinaldo muscle 01/17/2019 09/19/2020 Bilateral leg weakness 04/06/201809/19 [...] as of this encounter (statuses as of 12/20/2023) [facility]03-08-2022 History of Past illness Narrative* Problem Noted [...] creatine- 1.1-1.2) CK/CKMB negative. Patient transferred to [facility] for further evaluation. OSH Echo 10/2019 [...] left shoulder 03/01/2019 09/19/2020 Atrophy of gluteus reinaldo muscle 01/17/2019 09/19/2020 Bilateral leg weakness 04/06/201809/19 [...] as of this encounter (statuses as of 12/31/2023) [facility]03-08[facility]2022 History of Past illness Narrative* Problem Noted [...] creatine- 1.1-1.2) CK/CKMB negative. Patient transferred to [facility] for further evaluation. OSH Echo 10/2019 [...] left shoulder 03/01/2019 09/19/2020 Atrophy of gluteus reinaldo muscle 01/17/2019 09/19/2020 Bilateral leg weakness 04/06/201809/19 [...] as of this encounter (statuses as of 12/31/2023) [facility]03-08-2022 History of Past illness Narrative* Problem Noted [...] creatine- 1.1-1.2) CK/CKMB negative. Patient transferred to [facility] for further evaluation. OSH Echo 10/2019 [...] left shoulder 03/01/2019 09/19/2020 Atrophy of gluteus reinaldo muscle 01/17/2019 09/19/2020 Bilateral leg weakness 04/06/201809/19 [...] as of this encounter (statuses as of 01/05/2024) [facility]03-08-2022 History of Past illness Narrative* Problem Noted [...] creatine- 1.1-1.2) CK/CKMB negative. Patient transferred to [facility] for further evaluation. OSH Echo 10/2019 [...] left shoulder 03/01/2019 09/19/2020 Atrophy of gluteus reinaldo muscle 01/17/2019 09/19/2020 Bilateral leg weakness 04/06/201809/19 [...] as of this encounter (statuses as of 01/10/2024) [facility]03-08-2022 History of Past illness Narrative* Problem Noted [...] creatine- 1.1-1.2) CK/CKMB negative. Patient transferred to [facility] for further evaluation. OSH Echo 10/2019 [...] left shoulder 03/01/2019 09/19/2020 Atrophy of gluteus reinaldo muscle 01/17/2019 09/19/2020 Bilateral leg weakness 04/06/201809/19 [...] as of this encounter (statuses as of 01/12/2024) [facility]03-08-2022 History of Past illness Narrative* Problem Noted [...] creatine- 1.1-1.2) CK/CKMB negative. Patient transferred to [facility] for further evaluation. OSH Echo 10/2019 [...] left shoulder 03/01/2019 09/19/2020 Atrophy of gluteus reinaldo muscle 01/17/2019 09/19/2020 Bilateral leg weakness 04/06/201809/19 [...] as of this encounter (statuses as of 01/18/2024) [facility]03-08-2022 History of Past illness Narrative* Problem Noted [...] creatine- 1.1-1.2) CK/CKMB negative. Patient transferred to [facility] for further evaluation. OSH Echo 10/2019 [...] left shoulder 03/01/2019 09/19/2020 Atrophy of gluteus reinaldo muscle 01/17/2019 09/19/2020 Bilateral leg weakness 04/06/201809/19 [...] as of this encounter (statuses as of 01/29/2024) [facility]11-01-2021 History of Present illness Narrative* KasShavon snyder RT(R) - 08/18/2021 11:30 AM EDT Radiology Service Progress Note PATIENT NAME: Zenaida Evans DATE OF SERVICE: August 18, 2021 TIME: 11:51 AM PATIENT IDENTITY VERIFICATION COMPLETED USING TWO (2) IDENTIFIERS: Name and Date of confirmedby patient verbally. FALL SCREENING: Has the patient had 2 falls in the last year or 1 fall with injury or currently using an Ambulatory Assistive Device (Walker, Cane, Wheelchair, Crutches, etc.)? No PATIENT GENDER DATA: Female. status: : No status: NO. PATIENT RELEVANT IMPLANT DATA REVIEWED: Yes RADIOLOGY DEPARTMENT: Mammography PERIPHERAL IV DATA: Not applicable SIGNED BY: RT Kamila(R) August 18, 2021 11:51 AM [facility] History of Present illness Narrative* Rahul Adams (Rt), Tech - 12/24/2020 1:20 PM EST Radiology Service Progress Note PATIENT NAME: Zenaida Evans DATE OF SERVICE: December 24, 2020 TIME: 1:12 PM PATIENT IDENTITY VERIFICATION COMPLETED USING TWO [...] Yes RADIOLOGY DEPARTMENT: General X-ray: Exam(s) Completed: Upper Extremity X- Ray(s): Wrist, left : PERIPHERAL IV DATA: Not applicable SIGNED BY: RT Russell December 24, 2020 1:12 PM documented in this [facility] History of Present illness Narrative* July Walls (Rt), Tech - 07/30/2020 11:30 AM EDT Radiology Service Progress Note PATIENT NAME: Zenaida Evans DATE OF SERVICE: July 30, 2020 TIME: 12:14 PM PATIENT IDENTITY VERIFICATION COMPLETED USING TWO (2) IDENTIFIERS: Name and Date of confirmedby patient verbally. FALL SCREENING: Has the patient had 2 falls in the last year or 1 fall with injury or currently using an Ambulatory Assistive Device (Walker, Cane, Wheelchair, Crutches, etc.)? No PATIENT GENDER DATA: Female. status: : No status: NO. PATIENT RELEVANT IMPLANT DATA REVIEWED: Yes RADIOLOGY DEPARTMENT: Mammography PERIPHERAL IV DATA: Not applicable SIGNED BY: RT Manuel July 30, 2020 12:14 PM documented in this encounterK[facility] History of Past illness Narrative* Problem Noted [...] 1.1-1.2) CK/CKMB negative. Patient transferred [facility]. OSH Echo 10/2019 EF [...] left shoulder 03/01/2019 09/19/2020 Atrophy of gluteus reinaldo muscle 01/17/2019 09/19/2020 Bilateral leg weakness 04/06/2018 [...] of this encounter (statuses as of 01/20/2022) [facility]03-[facility]2020 History of Past illness Narrative* Problem Noted [...] creatine- 1.1-1.2) CK/CKMB negative. Patient transferred to [facility] for further evaluation. OSH Echo 10/2019 [...] left shoulder 03/01/2019 09/19/2020 Atrophy of gluteus reinaldo muscle 01/17/2019 09/19/2020 Bilateral leg weakness 04/06/2018 [...] of this encounter (statuses as of 01/20/2022) [facility]03-[facility]2020 History of Past illness Narrative* Problem Noted [...] creatine- 1.1-1.2) CK/CKMB negative. Patient transferred to [facility] for further evaluation. OSH Echo 10/2019 [...] left shoulder 03/01/2019 09/19/2020 Atrophy of gluteus reinaldo muscle 01/17/2019 09/19/2020 Bilateral leg weakness 04/06/2018 [...] of this encounter (statuses as of 01/27/2022) [facility]03[facility]2020 History of Past illness Narrative* Problem Noted [...] creatine- 1.1-1.2) CK/CKMB negative. Patient transferred to [facility] for further evaluation. OSH Echo 10/2019 [...] left shoulder 03/01/2019 09/19/2020 Atrophy of gluteus reinaldo muscle 01/17/2019 09/19/2020 Bilateral leg weakness 04/06/2018 [...] of this encounter (statuses as of 02/04/2022) [facility]03[facility]2020 History of Past illness Narrative* Problem Noted [...] creatine- 1.1-1.2) CK/CKMB negative. Patient transferred to [facility] for further evaluation. OSH Echo 10/2019 [...] left shoulder 03/01/2019 09/19/2020 Atrophy of gluteus reinaldo muscle 01/17/2019 09/19/2020 Bilateral leg weakness 04/06/2018 [...] of this encounter (statuses as of 02/10/2022) [facility]03[facility] History of Past illness Narrative* Problem Noted [...] creatine- 1.1-1.2) CK/CKMB negative. Patient transferred to [facility] for further evaluation. OSH Echo 10/2019 [...] left shoulder 03/01/2019 09/19/2020 Atrophy of gluteus reinaldo muscle 01/17/2019 09/19/2020 Bilateral leg weakness 04/06/2018 [...] of this encounter (statuses as of 02/17/2022) [facility]03[facility] History of Past illness Narrative* Problem Noted [...] creatine- 1.1-1.2) CK/CKMB negative. Patient transferred to [facility] for further evaluation. OSH Echo 10/2019 [...] left shoulder 03/01/2019 09/19/2020 Atrophy of gluteus reinaldo muscle 01/17/2019 09/19/2020 Bilateral leg weakness 04/06/2018 [...] of this encounter (statuses as of 02/19/2022) [facility] History of Past illness Narrative* Problem Noted [...] left shoulder 03/01/2019 09/19/2020 Atrophy of gluteus reinaldo muscle 01/17/2019 09/19/2020 Bilateral leg weakness 04/06/2018 [...] of this encounter (statuses as of 03/24/2022) [facility] History of Past illness Narrative* Problem Noted [...] creatine- 1.1-1.2) CK/CKMB negative. Patient transferred to [facility] for further evaluation. OSH Echo 10/2019 [...] left shoulder 03/01/2019 09/19/2020 Atrophy of gluteus reinaldo muscle 01/17/2019 09/19/2020 Bilateral leg weakness 04/06/2018 [...] of this encounter (statuses as of 04/14/2022) [facility] History of Past illness Narrative* Problem Noted [...] creatine- 1.1-1.2) CK/CKMB negative. Patient transferred to [facility] for further evaluation. OSH Echo 10/2019 [...] left shoulder 03/01/2019 09/19/2020 Atrophy of gluteus reinaldo muscle 01/17/2019 09/19/2020 Bilateral leg weakness 04/06/2018 [...] of this encounter (statuses as of 04/17/2022) [facility] History of Past illness Narrative* Problem Noted [...] creatine- 1.1-1.2) CK/CKMB negative. Patient transferred to [facility] for further evaluation. OSH Echo 10/2019 [...] left shoulder 03/01/2019 09/19/2020 Atrophy of gluteus reinaldo muscle 01/17/2019 09/19/2020 Bilateral leg weakness 04/06/2018 [...] of this encounter (statuses as of 05/14/2022) [facility] History of Past illness Narrative* Problem Noted [...] creatine- 1.1-1.2) CK/CKMB negative. Patient transferred to [facility] for further evaluation. OSH Echo 10/2019 [...] left shoulder 03/01/2019 09/19/2020 Atrophy of gluteus reinaldo muscle 01/17/2019 09/19/2020 Bilateral leg weakness 04/06/2018 [...] of this encounter (statuses as of 05/18/2022) [facility] History of Past illness Narrative* Problem Noted [...] left shoulder 03/01/2019 09/19/2020 Atrophy of gluteus reinaldo muscle 01/17/2019 09/19/2020 Bilateral leg weakness 04/06/2018 [...] of this encounter (statuses as of 2022) [facility] History of Past illness Narrative* Problem Noted [...] creatine- 1.1-1.2) CK/CKMB negative. Patient transferred to [facility] for further evaluation. OSH Echo 10/2019 [...] left shoulder 03/01/2019 09/19/2020 Atrophy of gluteus reinaldo muscle 01/17/2019 09/19/2020 Bilateral leg weakness 04/06/2018 [...] of this encounter (statuses as of 06/01/2022) [facility] History of Past illness Narrative* Problem Noted [...] creatine- 1.1-1.2) CK/CKMB negative. Patient transferred to [facility] for further evaluation. OSH Echo 10/2019 EF 65%, stage 1 diastolic dysfunction, mild TR Plan cycle enzymes CK 150 Trop T 0.053 BP management treatment of BRIGHT improved off cozaar and maxzide creat 1.35 repeat echo completed and pending Stress test scheduled 11/24/2019 at 7:45 No scar or ischemia Hyperkalemia 11/22/2019 12/15/2019 Overview: see plan CKD BRGIHT (acute kidney injury) 11/22/20192019 Overview: see plan BRIGHT Atypical chest pain 11/22/2019 09/19/2020 Delirium 10/19/2019 10/22/2019 Headache 10/18/2019 10/22/2019 Impingement syndrome of left shoulder 03/01/2019 09/19/2020 Atrophy of gluteus reinaldo muscle 01/17/2019 09/19/2020 Bilateral leg weakness 04/06/2018 [...] of this encounter (statuses as of 07/16/2022) [facility] History of Past illness Narrative* Problem Noted [...] creatine- 1.1-1.2) CK/CKMB negative. Patient transferred to [facility] for further evaluation. OSH Echo 10/2019 [...] left shoulder 03/01/2019 09/19/2020 Atrophy of gluteus reinaldo muscle 01/17/2019 09/19/2020 Bilateral leg weakness 04/06/2018 [...] of this encounter (statuses as of 07/22/2022) [facility] History of Past illness Narrative* Problem Noted [...] creatine- 1.1-1.2) CK/CKMB negative. Patient transferred to [facility] for further evaluation. OSH Echo 10/2019 [...] left shoulder 03/01/2019 09/19/2020 Atrophy of gluteus reinaldo muscle 01/17/2019 09/19/2020 Bilateral leg weakness 04/06/2018 [...] of this encounter (statuses as of 08/06/2022) [facility] History of Past illness Narrative* Problem Noted [...] creatine- 1.1-1.2) CK/CKMB negative. Patient transferred to [facility] for further evaluation. OSH Echo 10/2019 [...] left shoulder 03/01/2019 09/19/2020 Atrophy of gluteus reinaldo muscle 01/17/2019 09/19/2020 Bilateral leg weakness 04/06/2018 [...] of this encounter (statuses as of 08/08/2022) [facility] History of Past illness Narrative* Problem Noted [...] creatine- 1.1-1.2) CK/CKMB negative. Patient transferred to [facility] for further evaluation. OSH Echo 10/2019 [...] left shoulder 03/01/2019 09/19/2020 Atrophy of gluteus reinaldo muscle 01/17/2019 09/19/2020 Bilateral leg weakness 04/06/2018 [...] of this encounter (statuses as of 09/02/2022) [facility] History of Past illness Narrative* Problem Noted [...] 1.1-1.2) CK/CKMB negative. Patient transferred [facility] OSH Echo 10/2019 EF [...] left shoulder 03/01/2019 09/19/2020 Atrophy of gluteus reinaldo muscle 01/17/2019 09/19/2020 Bilateral leg weakness 04/06/2018 [...] of this encounter (statuses as of 09/11/2022) [facility] History of Past illness Narrative* Problem Noted [...] 1.1-1.2) CK/CKMB negative. Patient transferred [facility]. OSH Echo 10/2019 EF [...] left shoulder 03/01/2019 09/19/2020 Atrophy of gluteus reinaldo muscle 01/17/2019 09/19/2020 Bilateral leg weakness 04/06/2018 [...] of this encounter (statuses as of 09/14/2022) [facility] History of Past illness Narrative* Problem Noted [...] creatine- 1.1-1.2) CK/CKMB negative. Patient transferred to [facility] for further evaluation. OSH Echo 10/2019 [...] left shoulder 03/01/2019 09/19/2020 Atrophy of gluteus reinaldo muscle 01/17/2019 09/19/2020 Bilateral leg weakness 04/06/2018 [...] of this encounter (statuses as of 10/01/2022) [facility] History of Past illness Narrative* Problem Noted [...] creatine- 1.1-1.2) CK/CKMB negative. Patient transferred to [facility] for further evaluation. OSH Echo 10/2019 [...] left shoulder 03/01/2019 09/19/2020 Atrophy of gluteus erinaldo muscle 01/17/2019 09/19/2020 Bilateral leg weakness 04/06/2018 [...] of this encounter (statuses as of 10/01/2022) [facility] History of Past illness Narrative* Problem Noted [...] creatine- 1.1-1.2) CK/CKMB negative. Patient transferred to [facility] for further evaluation. OSH Echo 10/2019 [...] left shoulder 03/01/2019 09/19/2020 Atrophy of gluteus reinaldo muscle 01/17/2019 09/19/2020 Bilateral leg weakness 04/06/2018 [...] of this encounter (statuses as of 10/06/2022) [facility] History of Past illness Narrative* Problem Noted [...] creatine- 1.1-1.2) CK/CKMB negative. Patient transferred to [facility] for further evaluation. OSH Echo 10/2019 [...] left shoulder 03/01/2019 09/19/2020 Atrophy of gluteus reinaldo muscle 01/17/2019 09/19/2020 Bilateral leg weakness 04/06/2018 [...] of this encounter (statuses as of 10/11/2022) [facility] History of Past illness Narrative* Problem Noted [...] creatine- 1.1-1.2) CK/CKMB negative. Patient transferred to [facility] for further evaluation. OSH Echo 10/2019 [...] left shoulder 03/01/2019 09/19/2020 Atrophy of gluteus reinaldo muscle 01/17/2019 09/19/2020 Bilateral leg weakness 04/06/2018 [...] of this encounter (statuses as of 10/29/2022) [facility] of Past illness Narrative* Problem Noted [...] creatine- 1.1-1.2) CK/CKMB negative. Patient transferred to [facility] for further evaluation. OSH Echo 10/2019 [...] left shoulder 03/01/2019 09/19/2020 Atrophy of gluteus reinaldo muscle 01/17/2019 09/19/2020 Bilateral leg weakness 04/06/2018 [...] of this encounter (statuses as of 11/20/2022) [facility]03-06-2020 History of Past illness Narrative* Problem Noted [...] creatine- 1.1-1.2) CK/CKMB negative. Patient transferred to [facility] for further evaluation. OSH Echo 10/2019 [...] left shoulder 03/01/2019 09/19/2020 Atrophy of gluteus reinaldo muscle 01/17/2019 09/19/2020 Bilateral leg weakness 04/06/2018 [...] of this encounter (statuses as of 11/24/2022) [facility]2020 History of Past illness Narrative* Problem Noted [...] creatine- 1.1-1.2) CK/CKMB negative. Patient transferred to [facility] for further evaluation. OSH Echo 10/2019 [...] left shoulder 03/01/2019 09/19/2020 Atrophy of gluteus reinaldo muscle 01/17/2019 09/19/2020 Bilateral leg weakness 04/06/2018 [...] of this encounter (statuses as of 01/06/2023) [facility] History of Past illness Narrative* Problem Noted [...] 1.1-1.2) CK/CKMB negative. Patient transferred to [facility] for further evaluation. OSH Echo 10/2019 EF [...] left shoulder 03/01/2019 09/19/2020 Atrophy of gluteus reinaldo muscle 01/17/2019 09/19/2020 Bilateral leg weakness 04/06/2018 [...] of this encounter (statuses as of 01/08/2023) [facility] Thumb pain, left- Primary Primary osteoarthritis of first carpometacarpal joint of left hand Primary localized osteoarthrosis, hand [facility] Diagnosis Primary osteoarthritis of first carpometacarpal joint of left hand- Primary Primary localized osteoarthrosis, hand [facility] Diagnosis Thumb pain, left- Primary NO SHOW [facility] Diagnosis Thumb pain, left- Primary Primary osteoarthritis of first carpometacarpal joint of left hand Primary localized osteoarthrosis, hand [facility] Diagnosis Thumb pain, left- Primary Primary osteoarthritis of first carpometacarpal joint of left hand Primary localized osteoarthrosis, hand [facility] [place] [facility] Diagnosis Primary osteoarthritis of first carpometacarpal joint of left hand- Primary Primary localized osteoarthrosis, hand [facility] [place] [facility]* Diagnosis Primary osteoarthritis of first carpometacarpal joint of left hand- Primary Primary localized osteoarthrosis, hand [facility] [place] [facility]* Diagnosis Anemia, unspecified type- Primary 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 disease, or chronic kidney disease (HCC) Unspecified hypertensive heart and kidney disease with heart failure and with chronic kidney disease stage I through stage IV, or unspecified Hypothyroidism, unspecified type [facility] Diagnosis Anemia due to stage 3b chronic kidney disease (HCC)- Primary Anemia, unspecified type documented in this encounter [facility] note* Diagnosis Telogen effluvium- Primary Seborrheic dermatitis Seborrheic dermatitis, unspecified Encounter for medication monitoring Encounter for therapeutic drug monitoring Verruca vulgaris Viral warts, unspecified Hypothyroidism, unspecified type documented in this encounter [facility] note* Diagnosis Chronic heart failure with preserved [...] Unspecified essential hypertension [facility] [place] [facility]* Diagnosis Chronic heart failure with preserved ejection fraction (HFpEF) (HCC)- Primary [facility] [place] [facility]* Diagnosis White coat syndrome with hypertension- Primary [facility] [place] [facility]* Diagnosis Encounter for immunization- Primary Need [...] IV, or unspecified [facility] [place] [facility]* Diagnosis Telogen effluvium- [facility] Diagnosis Chronic heart failure with preserved [...] Primary Renal colic [facility] Diagnosis Chronic heart failure with preserved ejection fraction (HCC)- Primary [facility] Diagnosis Trigger thumb of left hand- Primary Trigger finger (acquired) [facility] Diagnosis Fibrocystic breast changes of both breasts- Primary Dense breast Inconclusive mammogram Personal history of breast cancer Personal history of malignant neoplasm of breast Encounter for screening mammogram for breast cancer [facility] Diagnosis Difficulty swallowing pills- Primary Other symptoms involving digestive system Pharyngitis, unspecified etiology [facility] Diagnosis Chronic back pain, unspecified back location, unspecified back pain laterality- Primary [facility]* Diagnosis Rib pain on right side- Primary Chest pain, unspecified Epigastric abdominal tenderness without rebound tenderness Thoracogenic scoliosis, unspecified spinal region [facility]* Diagnosis Palpitation- Primary Palpitations [facility]* Diagnosis Acute right-sided thoracic back pain- Primary [facility]* Diagnosis Medicare annual wellness visit, subsequent- Primary Routine general medical examination at a health care facility Asymptomatic postmenopausal state Thoracogenic scoliosis, unspecified spinal region Chronic thoracic back pain, unspecified back pain laterality Decreased hearing of both ears Anemia due to stage 3b chronic kidney disease (HCC) Epigastric pain Abdominal pain, epigastric Hypothyroidism, unspecified type [facility] Diagnosis Asymptomatic postmenopausal state Medicare annual wellness visit, subsequent Routine general medical examination at a health care facility [facility] Diagnosis 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 Degenerative scoliosis in adult patient Chronic thoracic back pain, unspecified back pain laterality [facility] [place] [facility]* Diagnosis Sensorineural hearing loss, bilateral- Primary [facility] [place] [facility]* Diagnosis Telogen effluvium [facility] [place] [facility]* Diagnosis Acute right-sided thoracic back pain [facility] [place] [facility]* Diagnosis Epigastric abdominal tenderness without rebound tenderness [facility] [place] [facility]* Diagnosis Medicare annual wellness visit, subsequent Routine general medical examination at a [facility] care facility Epigastric pain Abdominal pain, epigastric documented [facility] [place] [facility]* Diagnosis Urinary retention Retention of urine, unspecified [facility] [place] [facility]* Diagnosis Exertional dyspnea Other dyspnea and respiratory abnormality [facility] [place] [facility]* Diagnosis Chronic thoracic back pain, unspecified back pain laterality- Primary 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 [facility] [place] [facility]* Diagnosis Chronic diastolic (congestive) heart failure (HCC)- Primary [facility] [place] [facility]* Diagnosis Chronic thoracic back pain, unspecified back pain laterality- Primary Degenerative scoliosis in adult patient 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 [facility] Diagnosis Essential hypertension Unspecified essential hypertension [facility] [place] noteNo assessment information availableWJoint [facility] Work Phone: Evaluation note* Diagnosis Personal history of malignant neoplasm of breast- Primary Encounter for screening mammogram for malignant neoplasm of breast Other screening mammogram [facility] [place] [facility]* Diagnosis Encounter for screening mammogram for breast cancer- Primary [facility] Diagnosis Essential hypertension Unspecified essential hypertension [facility] [place] [facility]* Diagnosis Situational depression- Primary Adjustment disorder with depressed mood [facility] [place] [facility]* Diagnosis Abnormal mammogram- Primary Abnormal mammogram, unspecified Fibrocystic breast changes of both breasts Dense breast Inconclusive mammogram Personal history of breast cancer Personal history of malignant neoplasm of breast [facility] [place] [facility]* Diagnosis 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 Collagenous colitis Other and unspecified noninfectious gastroenteritis and colitis [facility] Diagnosis Essential hypertension Unspecified essential hypertension [facility] [place] [facility]* Diagnosis Situational depression- Primary Adjustment disorder with depressed mood Cerebral microvascular disease Cerebrovascular disease, unspecified Essential hypertension Unspecified essential hypertension Epigastric abdominal tenderness without rebound tenderness 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 disease, or chronic kidney disease (HCC) Unspecified hypertensive heart and kidney disease with heart failure and with chronic kidney disease stage I through stage IV, or unspecified Collagenous colitis Other and unspecified noninfectious gastroenteritis and colitis 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) documented [facility] [place] [facility]* Diagnosis Chronic diastolic (congestive) heart failure (HCC)- Primary [facility] [place] [facility]* Diagnosis Hypothyroidism, unspecified type documented [facility] [place] [facility]* Diagnosis Essential hypertension- Primary Unspecified essential hypertension Atherosclerosis of 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 Changes in vascular appearance of retina, bilateral Urinary calculus, unspecified Bcc L cheek 02/22 Basal cell carcinoma of skin of other and unspecified parts of face PERS HX OF IRRADIATION-face and neck Personal history of irradiation, presenting hazards to health CKD (chronic kidney disease) stage 3, GFR 30-59 ml/min (HCC) Chronic kidney disease, Stage III (moderate) Malignant neoplasm of lower-outer quadrant of right female breast (HCC) Malignant neoplasm of lower-outer quadrant of female breast Hypothyroidism, unspecified type Elevated blood uric acid level Other abnormal blood chemistry Localized edema Edema Chronic knee pain, unspecified laterality- Primary Primary osteoarthritis of right knee Primary localized osteoarthrosis, lower leg Primary osteoarthritis of right knee- Primary Primary localized osteoarthrosis, lower leg Medicare welcome exam- Primary Routine general medical examination at a health care facility Encephalopathy Encephalopathy, unspecified 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 disease, or chronic kidney disease (HCC) Unspecified hypertensive heart and kidney disease with heart failure and with chronic kidney disease stage I through stage IV, or unspecified Pleural effusion Unspecified pleural effusion Collagenous colitis Other and unspecified noninfectious gastroenteritis and colitis 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) Hypothyroidism, unspecified type Cerebral microvascular disease Cerebrovascular disease, unspecified Essential hypertension Unspecified essential hypertension Need for vaccination Need for prophylactic vaccination and inoculation against unspecified single disease Decreased hearing of both ears Weight loss, unintentional Loss of weight 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 SVT (supraventricular tachycardia) (HCC) Other specified cardiac dysrhythmias Chronic diastolic (congestive) heart failure (HCC) Iron deficiency anemia, unspecified iron deficiency anemia type Sleep disturbance Sleep disturbance, unspecified Primary osteoarthritis of first carpometacarpal joint of left hand Primary localized osteoarthrosis, hand Pre-operative examination- Primary Preoperative examination, unspecified Primary osteoarthritis of first carpometacarpal joint of left hand Primary localized osteoarthrosis, hand Chronic diastolic (congestive) heart failure (HCC) Atherosclerosis of 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 Essential hypertension Unspecified essential hypertension SVT (supraventricular tachycardia) (HCC) Other specified cardiac dysrhythmias Collagenous colitis Other and unspecified noninfectious gastroenteritis and colitis 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) Stage 3 chronic kidney disease, unspecified whether stage 3a or 3b CKD (HCC) Hypothyroidism, unspecified type Basal cell carcinoma, face Basal cell carcinoma of skin of other and unspecified parts of face Personal history of malignant neoplasm of breast Cerebral microvascular disease Cerebrovascular disease, unspecified Encephalopathy Encephalopathy, unspecified PERS HX OF IRRADIATION-face and neck Personal history of irradiation, presenting hazards to health SVT (supraventricular tachycardia) (HCC)- Primary Other specified cardiac dysrhythmias 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 disease, or chronic kidney disease (HCC) Unspecified hypertensive heart and kidney disease with heart failure and with chronic kidney disease stage I through stage IV, or unspecified 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) Atherosclerosis of 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 Exertional dyspnea Other dyspnea and respiratory abnormality Sadness 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 Neoplasm of unspecified nature of digestive system Encounter for immunization Need for other specified prophylactic vaccination against single bacterial disease Chronic diastolic (congestive) heart failure (HCC) Stage 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, or chronic kidney disease (HCC) Unspecified hypertensive heart and kidney disease with heart failure and with chronic kidney disease stage I through stage IV, or unspecified SVT (supraventricular tachycardia) (HCC) Other specified cardiac dysrhythmias Essential hypertension Unspecified essential hypertension Situational depression Adjustment disorder with depressed mood Cellulitis of left arm- Primary Cellulitis and abscess of upper arm and forearm [facility] Diagnosis Essential hypertension- Primary Unspecified essential hypertension Atherosclerosis of 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 Changes in vascular appearance of retina, bilateral Urinary calculus, unspecified Bcc L cheek 02/22 Basal cell carcinoma of skin of other and unspecified parts of face PERS HX OF IRRADIATION-face and neck Personal history of irradiation, presenting hazards to health CKD (chronic kidney disease) stage 3, GFR 30-59 ml/min (HCC) Chronic kidney disease, Stage III (moderate) Malignant neoplasm of lower-outer quadrant of right female breast (HCC) Malignant neoplasm of lower-outer quadrant of female breast Hypothyroidism, unspecified type Elevated blood uric acid level Other abnormal blood chemistry Localized edema Edema Chronic knee pain, unspecified laterality- Primary Primary osteoarthritis of right knee Primary localized osteoarthrosis, lower leg Primary osteoarthritis of right knee- Primary Primary localized osteoarthrosis, lower leg Medicare welcome exam- Primary Routine general medical examination at a health care facility Encephalopathy Encephalopathy, unspecified 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 disease, or chronic kidney disease (HCC) Unspecified hypertensive heart and kidney disease with heart failure and with chronic kidney disease stage I through stage IV, or unspecified Pleural effusion Unspecified pleural effusion Collagenous colitis Other and unspecified noninfectious gastroenteritis and colitis 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) Hypothyroidism, unspecified type Cerebral microvascular disease Cerebrovascular disease, unspecified Essential hypertension Unspecified essential hypertension Need for vaccination Need for prophylactic vaccination and inoculation against unspecified single disease Decreased hearing of both ears Weight loss, unintentional Loss of weight 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 SVT (supraventricular tachycardia) (HCC) Other specified cardiac dysrhythmias Chronic diastolic (congestive) heart failure (HCC) Iron deficiency anemia, unspecified iron deficiency anemia type Sleep disturbance Sleep disturbance, unspecified Primary osteoarthritis of first carpometacarpal joint of left hand Primary localized osteoarthrosis, hand Pre-operative examination- Primary Preoperative examination, unspecified Primary osteoarthritis of first carpometacarpal joint of left hand Primary localized osteoarthrosis, hand Chronic diastolic (congestive) heart failure (HCC) Atherosclerosis of 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 Essential hypertension Unspecified essential hypertension SVT (supraventricular tachycardia) (HCC) Other specified cardiac dysrhythmias Collagenous colitis Other and unspecified noninfectious gastroenteritis and colitis 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) Stage 3 chronic kidney disease, unspecified whether stage 3a or 3b CKD (HCC) Hypothyroidism, unspecified type Basal cell carcinoma, face Basal cell carcinoma of skin of other and unspecified parts of face Personal history of malignant neoplasm of breast Cerebral microvascular disease Cerebrovascular disease, unspecified Encephalopathy Encephalopathy, unspecified PERS HX OF IRRADIATION-face and neck Personal history of irradiation, presenting hazards to health SVT (supraventricular tachycardia) (HCC)- Primary Other specified cardiac dysrhythmias 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 disease, or chronic kidney disease (HCC) Unspecified hypertensive heart and kidney disease with heart failure and with chronic kidney disease stage I through stage IV, or unspecified 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) Atherosclerosis of 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 Exertional dyspnea Other dyspnea and respiratory abnormality Sadness 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 Neoplasm of unspecified nature of digestive system Encounter for immunization Need for other specified prophylactic vaccination against single bacterial disease Chronic diastolic (congestive) heart failure (HCC) Stage 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, or chronic kidney disease (HCC) Unspecified hypertensive heart and kidney disease with heart failure and with chronic kidney disease stage I through stage IV, or unspecified SVT (supraventricular tachycardia) (HCC) Other specified cardiac dysrhythmias Essential hypertension Unspecified essential hypertension Situational depression Adjustment disorder with depressed mood Dysuria- Primary [facility] Diagnosis Essential hypertension- Primary Unspecified essential hypertension Atherosclerosis of 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 Changes in vascular appearance of retina, bilateral Urinary calculus, unspecified Bcc L cheek 02/22 Basal cell carcinoma of skin of other and unspecified parts of face PERS HX OF IRRADIATION-face and neck Personal history of irradiation, presenting hazards to health CKD (chronic kidney disease) stage 3, GFR 30-59 ml/min (HCC) Chronic kidney disease, Stage III (moderate) Malignant neoplasm of lower-outer quadrant of right female breast (HCC) Malignant neoplasm of lower-outer quadrant of female breast Hypothyroidism, unspecified type Elevated blood uric acid level Other abnormal blood chemistry Localized edema Edema Chronic knee pain, unspecified laterality- Primary Primary osteoarthritis of right knee Primary localized osteoarthrosis, lower leg Primary osteoarthritis of right knee- Primary Primary localized osteoarthrosis, lower leg Medicare welcome exam- Primary Routine general medical examination at a health care facility Encephalopathy Encephalopathy, unspecified 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 disease, or chronic kidney disease (HCC) Unspecified hypertensive heart and kidney disease with heart failure and with chronic kidney disease stage I through stage IV, or unspecified Pleural effusion Unspecified pleural effusion Collagenous colitis Other and unspecified noninfectious gastroenteritis and colitis 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) Hypothyroidism, unspecified type Cerebral microvascular disease Cerebrovascular disease, unspecified Essential hypertension Unspecified essential hypertension Need for vaccination Need for prophylactic vaccination and inoculation against unspecified single disease Decreased hearing of both ears Weight loss, unintentional Loss of weight 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 SVT (supraventricular tachycardia) (HCC) Other specified cardiac dysrhythmias Chronic diastolic (congestive) heart failure (HCC) Iron deficiency anemia, unspecified iron deficiency anemia type Sleep disturbance Sleep disturbance, unspecified Primary osteoarthritis of first carpometacarpal joint of left hand Primary localized osteoarthrosis, hand Pre-operative examination- Primary Preoperative examination, unspecified Primary osteoarthritis of first carpometacarpal joint of left hand Primary localized osteoarthrosis, hand Chronic diastolic (congestive) heart failure (HCC) Atherosclerosis of 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 Essential hypertension Unspecified essential hypertension SVT (supraventricular tachycardia) (HCC) Other specified cardiac dysrhythmias Collagenous colitis Other and unspecified noninfectious gastroenteritis and colitis 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) Stage 3 chronic kidney disease, unspecified whether stage 3a or 3b CKD (HCC) Hypothyroidism, unspecified type Basal cell carcinoma, face Basal cell carcinoma of skin of other and unspecified parts of face Personal history of malignant neoplasm of breast Cerebral microvascular disease Cerebrovascular disease, unspecified Encephalopathy Encephalopathy, unspecified PERS HX OF IRRADIATION-face and neck Personal history of irradiation, presenting hazards to health SVT (supraventricular tachycardia) (HCC)- Primary Other specified cardiac dysrhythmias 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 disease, or chronic kidney disease (HCC) Unspecified hypertensive heart and kidney disease with heart failure and with chronic kidney disease stage I through stage IV, or unspecified 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) Atherosclerosis of 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 Exertional dyspnea Other dyspnea and respiratory abnormality Sadness 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 Neoplasm of unspecified nature of digestive system Encounter for immunization Need for other specified prophylactic vaccination against single bacterial disease Chronic diastolic (congestive) heart failure (HCC) Stage 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, or chronic kidney disease (HCC) Unspecified hypertensive heart and kidney disease with heart failure and with chronic kidney disease stage I through stage IV, or unspecified SVT (supraventricular tachycardia) (HCC) Other specified cardiac dysrhythmias Essential hypertension Unspecified essential hypertension Situational depression Adjustment disorder with depressed mood Urinary frequency- [facility] Essential hypertension- Primary Unspecified essential hypertension Atherosclerosis of 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 Changes in vascular appearance of retina, bilateral Urinary calculus, unspecified Bcc L cheek 02/22 Basal cell carcinoma of skin of other and unspecified parts of face PERS HX OF IRRADIATION-face and neck Personal history of irradiation, presenting hazards to health CKD (chronic kidney disease) stage 3, GFR 30-59 ml/min (HCC) Chronic kidney disease, Stage III (moderate) Malignant neoplasm of lower-outer quadrant of right female breast (HCC) Malignant neoplasm of lower-outer quadrant of female breast Hypothyroidism, unspecified type Elevated blood uric acid level Other abnormal blood chemistry Localized edema Edema Chronic knee pain, unspecified laterality- Primary Primary osteoarthritis of right knee Primary localized osteoarthrosis, lower leg Primary osteoarthritis of right knee- Primary Primary localized osteoarthrosis, lower leg Medicare welcome exam- Primary Routine general medical examination at a health care facility Encephalopathy Encephalopathy, unspecified 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 disease, or chronic kidney disease (HCC) Unspecified hypertensive heart and kidney disease with heart failure and with chronic kidney disease stage I through stage IV, or unspecified Pleural effusion Unspecified pleural effusion Collagenous colitis Other and unspecified noninfectious gastroenteritis and colitis 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) Hypothyroidism, unspecified type Cerebral microvascular disease Cerebrovascular disease, unspecified Essential hypertension Unspecified essential hypertension Need for vaccination Need for prophylactic vaccination and inoculation against unspecified single disease Decreased hearing of both ears Weight loss, unintentional Loss of weight 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 SVT (supraventricular tachycardia) (HCC) Other specified cardiac dysrhythmias Chronic diastolic (congestive) heart failure (HCC) Iron deficiency anemia, unspecified iron deficiency anemia type Sleep disturbance Sleep disturbance, unspecified Primary osteoarthritis of first carpometacarpal joint of left hand Primary localized osteoarthrosis, hand Pre-operative examination- Primary Preoperative examination, unspecified Primary osteoarthritis of first carpometacarpal joint of left hand Primary localized osteoarthrosis, hand Chronic diastolic (congestive) heart failure (HCC) Atherosclerosis of 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 Essential hypertension Unspecified essential hypertension SVT (supraventricular tachycardia) (HCC) Other specified cardiac dysrhythmias Collagenous colitis Other and unspecified noninfectious gastroenteritis and colitis 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) Stage 3 chronic kidney disease, unspecified whether stage 3a or 3b CKD (HCC) Hypothyroidism, unspecified type Basal cell carcinoma, face Basal cell carcinoma of skin of other and unspecified parts of face Personal history of malignant neoplasm of breast Cerebral microvascular disease Cerebrovascular disease, unspecified Encephalopathy Encephalopathy, unspecified PERS HX OF IRRADIATION-face and neck Personal history of irradiation, presenting hazards to health SVT (supraventricular tachycardia) (HCC)- Primary Other specified cardiac dysrhythmias 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 disease, or chronic kidney disease (HCC) Unspecified hypertensive heart and kidney disease with heart failure and with chronic kidney disease stage I through stage IV, or unspecified 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) Atherosclerosis of 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 Exertional dyspnea Other dyspnea and respiratory abnormality Sadness 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 Neoplasm of unspecified nature of digestive system Encounter for immunization Need for other specified prophylactic vaccination against single bacterial disease Chronic diastolic (congestive) heart failure (HCC) Stage 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, or chronic kidney disease (HCC) Unspecified hypertensive heart and kidney disease with heart failure and with chronic kidney disease stage I through stage IV, or unspecified SVT (supraventricular tachycardia) (HCC) Other specified cardiac dysrhythmias Essential hypertension Unspecified essential hypertension Situational depression Adjustment disorder with depressed mood Encounter for screening mammogram for breast cancer [facility] Essential hypertension- Primary Unspecified essential hypertension Atherosclerosis of 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 Changes in vascular appearance of retina, bilateral Urinary calculus, unspecified Bcc L cheek 02/22 Basal cell carcinoma of skin of other and unspecified parts of face PERS HX OF IRRADIATION-face and neck Personal history of irradiation, presenting hazards to health CKD (chronic kidney disease) stage 3, GFR 30-59 ml/min (HCC) Chronic kidney disease, Stage III (moderate) Malignant neoplasm of lower-outer quadrant of right female breast (HCC) Malignant neoplasm of lower-outer quadrant of female breast Hypothyroidism, unspecified type Elevated blood uric acid level Other abnormal blood chemistry Localized edema Edema Chronic knee pain, unspecified laterality- Primary Primary osteoarthritis of right knee Primary localized osteoarthrosis, lower leg Primary osteoarthritis of right knee- Primary Primary localized osteoarthrosis, lower leg Medicare welcome exam- Primary Routine general medical examination at a health care facility Encephalopathy Encephalopathy, unspecified 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 disease, or chronic kidney disease (HCC) Unspecified hypertensive heart and kidney disease with heart failure and with chronic kidney disease stage I through stage IV, or unspecified Pleural effusion Unspecified pleural effusion Collagenous colitis Other and unspecified noninfectious gastroenteritis and colitis 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) Hypothyroidism, unspecified type Cerebral microvascular disease Cerebrovascular disease, unspecified Essential hypertension Unspecified essential hypertension Need for vaccination Need for prophylactic vaccination and inoculation against unspecified single disease Decreased hearing of both ears Weight loss, unintentional Loss of weight 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 SVT (supraventricular tachycardia) (HCC) Other specified cardiac dysrhythmias Chronic diastolic (congestive) heart failure (HCC) Iron deficiency anemia, unspecified iron deficiency anemia type Sleep disturbance Sleep disturbance, unspecified Primary osteoarthritis of first carpometacarpal joint of left hand Primary localized osteoarthrosis, hand Pre-operative examination- Primary Preoperative examination, unspecified Primary osteoarthritis of first carpometacarpal joint of left hand Primary localized osteoarthrosis, hand Chronic diastolic (congestive) heart failure (HCC) Atherosclerosis of 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 Essential hypertension Unspecified essential hypertension SVT (supraventricular tachycardia) (HCC) Other specified cardiac dysrhythmias Collagenous colitis Other and unspecified noninfectious gastroenteritis and colitis 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) Stage 3 chronic kidney disease, unspecified whether stage 3a or 3b CKD (HCC) Hypothyroidism, unspecified type Basal cell carcinoma, face Basal cell carcinoma of skin of other and unspecified parts of face Personal history of malignant neoplasm of breast Cerebral microvascular disease Cerebrovascular disease, unspecified Encephalopathy Encephalopathy, unspecified PERS HX OF IRRADIATION-face and neck Personal history of irradiation, presenting hazards to health SVT (supraventricular tachycardia) (HCC)- Primary Other specified cardiac dysrhythmias 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 disease, or chronic kidney disease (HCC) Unspecified hypertensive heart and kidney disease with heart failure and with chronic kidney disease stage I through stage IV, or unspecified 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) Atherosclerosis of 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 Exertional dyspnea Other dyspnea and respiratory abnormality Sadness 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 Neoplasm of unspecified nature of digestive system Encounter for immunization Need for other specified prophylactic vaccination against single bacterial disease Chronic diastolic (congestive) heart failure (HCC) Stage 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, or chronic kidney disease (HCC) Unspecified hypertensive heart and kidney disease with heart failure and with chronic kidney disease stage I through stage IV, or unspecified SVT (supraventricular tachycardia) (HCC) Other specified cardiac dysrhythmias Essential hypertension Unspecified essential hypertension Situational depression Adjustment disorder with depressed mood 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 disease, or chronic kidney disease (HCC)- Primary Unspecified hypertensive heart and kidney disease with heart failure and with chronic kidney disease stage I through stage IV, or unspecified Exertional dyspnea Other dyspnea and respiratory abnormality Acute cystitis without hematuria Acute cystitis [facility] Diagnosis Essential hypertension- Primary Unspecified essential hypertension Atherosclerosis of 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 Changes in vascular appearance of retina, bilateral Urinary calculus, unspecified Bcc L cheek 02/22 Basal cell carcinoma of skin of other and unspecified parts of face PERS HX OF IRRADIATION-face and neck Personal history of irradiation, presenting hazards to health CKD (chronic kidney disease) stage 3, GFR 30-59 ml/min (HCC) Chronic kidney disease, Stage III (moderate) Malignant neoplasm of lower-outer quadrant of right female breast (HCC) Malignant neoplasm of lower-outer quadrant of female breast Hypothyroidism, unspecified type Elevated blood uric acid level Other abnormal blood chemistry Localized edema Edema Chronic knee pain, unspecified laterality- Primary Primary osteoarthritis of right knee Primary localized osteoarthrosis, lower leg Primary osteoarthritis of right knee- Primary Primary localized osteoarthrosis, lower leg Medicare welcome exam- Primary Routine general medical examination at a health care facility Encephalopathy Encephalopathy, unspecified 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 disease, or chronic kidney disease (HCC) Unspecified hypertensive heart and kidney disease with heart failure and with chronic kidney disease stage I through stage IV, or unspecified Pleural effusion Unspecified pleural effusion Collagenous colitis Other and unspecified noninfectious gastroenteritis and colitis 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) Hypothyroidism, unspecified type Cerebral microvascular disease Cerebrovascular disease, unspecified Essential hypertension Unspecified essential hypertension Need for vaccination Need for prophylactic vaccination and inoculation against unspecified single disease Decreased hearing of both ears Weight loss, unintentional Loss of weight 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 SVT (supraventricular tachycardia) (HCC) Other specified cardiac dysrhythmias Chronic diastolic (congestive) heart failure (HCC) Iron deficiency anemia, unspecified iron deficiency anemia type Sleep disturbance Sleep disturbance, unspecified Primary osteoarthritis of first carpometacarpal joint of left hand Primary localized osteoarthrosis, hand Pre-operative examination- Primary Preoperative examination, unspecified Primary osteoarthritis of first carpometacarpal joint of left hand Primary localized osteoarthrosis, hand Chronic diastolic (congestive) heart failure (HCC) Atherosclerosis of 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 Essential hypertension Unspecified essential hypertension SVT (supraventricular tachycardia) (HCC) Other specified cardiac dysrhythmias Collagenous colitis Other and unspecified noninfectious gastroenteritis and colitis 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) Stage 3 chronic kidney disease, unspecified whether stage 3a or 3b CKD (HCC) Hypothyroidism, unspecified type Basal cell carcinoma, face Basal cell carcinoma of skin of other and unspecified parts of face Personal history of malignant neoplasm of breast Cerebral microvascular disease Cerebrovascular disease, unspecified Encephalopathy Encephalopathy, unspecified PERS HX OF IRRADIATION-face and neck Personal history of irradiation, presenting hazards to health Encounter for screening mammogram for breast cancer SVT (supraventricular tachycardia) (HCC)- Primary Other specified cardiac dysrhythmias 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 disease, or chronic kidney disease (HCC) Unspecified hypertensive heart and kidney disease with heart failure and with chronic kidney disease stage I through stage IV, or unspecified 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) Atherosclerosis of 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 Exertional dyspnea Other dyspnea and respiratory abnormality Sadness 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 Neoplasm of unspecified nature of digestive system Encounter for immunization Need for other specified prophylactic vaccination against single bacterial disease Chronic diastolic (congestive) heart failure (HCC) Stage 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, or chronic kidney disease (HCC) Unspecified hypertensive heart and kidney disease with heart failure and with chronic kidney disease stage I through stage IV, or unspecified SVT (supraventricular tachycardia) (HCC) Other specified cardiac dysrhythmias Essential hypertension Unspecified essential hypertension Situational depression Adjustment disorder with depressed mood [facility] Diagnosis Essential hypertension- Primary Unspecified essential hypertension Atherosclerosis of 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 Changes in vascular appearance of retina, bilateral Urinary calculus, unspecified Bcc L cheek 02/22 Basal cell carcinoma of skin of other and unspecified parts of face PERS HX OF IRRADIATION-face and neck Personal history of irradiation, presenting hazards to health CKD (chronic kidney disease) stage 3, GFR 30-59 ml/min (HCC) Chronic kidney disease, Stage III (moderate) Malignant neoplasm of lower-outer quadrant of right female breast (HCC) Malignant neoplasm of lower-outer quadrant of female breast Hypothyroidism, unspecified type Elevated blood uric acid level Other abnormal blood chemistry Localized edema Edema Chronic knee pain, unspecified laterality- Primary Primary osteoarthritis of right knee Primary localized osteoarthrosis, lower leg Primary osteoarthritis of right knee- Primary Primary localized osteoarthrosis, lower leg Medicare welcome exam- Primary Routine general medical examination at a health care facility Encephalopathy Encephalopathy, unspecified 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 disease, or chronic kidney disease (HCC) Unspecified hypertensive heart and kidney disease with heart failure and with chronic kidney disease stage I through stage IV, or unspecified Pleural effusion Unspecified pleural effusion Collagenous colitis Other and unspecified noninfectious gastroenteritis and colitis 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) Hypothyroidism, unspecified type Cerebral microvascular disease Cerebrovascular disease, unspecified Essential hypertension Unspecified essential hypertension Need for vaccination Need for prophylactic vaccination and inoculation against unspecified single disease Decreased hearing of both ears Weight loss, unintentional Loss of weight 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 SVT (supraventricular tachycardia) (HCC) Other specified cardiac dysrhythmias Chronic diastolic (congestive) heart failure (HCC) Iron deficiency anemia, unspecified iron deficiency anemia type Sleep disturbance Sleep disturbance, unspecified Primary osteoarthritis of first carpometacarpal joint of left hand Primary localized osteoarthrosis, hand Pre-operative examination- Primary Preoperative examination, unspecified Primary osteoarthritis of first carpometacarpal joint of left hand Primary localized osteoarthrosis, hand Chronic diastolic (congestive) heart failure (HCC) Atherosclerosis of 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 Essential hypertension Unspecified essential hypertension SVT (supraventricular tachycardia) (HCC) Other specified cardiac dysrhythmias Collagenous colitis Other and unspecified noninfectious gastroenteritis and colitis 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) Stage 3 chronic kidney disease, unspecified whether stage 3a or 3b CKD (HCC) Hypothyroidism, unspecified type Basal cell carcinoma, face Basal cell carcinoma of skin of other and unspecified parts of face Personal history of malignant neoplasm of breast Cerebral microvascular disease Cerebrovascular disease, unspecified Encephalopathy Encephalopathy, unspecified PERS HX OF IRRADIATION-face and neck Personal history of irradiation, presenting hazards to health SVT (supraventricular tachycardia) (HCC)- Primary Other specified cardiac dysrhythmias 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 disease, or chronic kidney disease (HCC) Unspecified hypertensive heart and kidney disease with heart failure and with chronic kidney disease stage I through stage IV, or unspecified 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) Atherosclerosis of 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 Exertional dyspnea Other dyspnea and respiratory abnormality Sadness 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 Neoplasm of unspecified nature of digestive system Encounter for immunization Need for other specified prophylactic vaccination against single bacterial disease Chronic diastolic (congestive) heart failure (HCC) Stage 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, or chronic kidney disease (HCC) Unspecified hypertensive heart and kidney disease with heart failure and with chronic kidney disease stage I through stage IV, or unspecified SVT (supraventricular tachycardia) (HCC) Other specified cardiac dysrhythmias Essential hypertension Unspecified essential hypertension Situational depression Adjustment disorder with depressed mood 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 disease, or chronic kidney disease (HCC)- Primary Unspecified hypertensive heart and kidney disease with heart failure and with chronic kidney disease stage I through stage IV, or unspecified [facility] Diagnosis Essential hypertension- Primary Unspecified essential hypertension Atherosclerosis of 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 Changes in vascular appearance of retina, bilateral Urinary calculus, unspecified Bcc L cheek 02/22 Basal cell carcinoma of skin of other and unspecified parts of face PERS HX OF IRRADIATION-face and neck Personal history of irradiation, presenting hazards to health CKD (chronic kidney disease) stage 3, GFR 30-59 ml/min (HCC) Chronic kidney disease, Stage III (moderate) Malignant neoplasm of lower-outer quadrant of right female breast (HCC) Malignant neoplasm of lower-outer quadrant of female breast Hypothyroidism, unspecified type Elevated blood uric acid level Other abnormal blood chemistry Localized edema Edema Chronic knee pain, unspecified laterality- Primary Primary osteoarthritis of right knee Primary localized osteoarthrosis, lower leg Primary osteoarthritis of right knee- Primary Primary localized osteoarthrosis, lower leg Medicare welcome exam- Primary Routine general medical examination at a health care facility Encephalopathy Encephalopathy, unspecified 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 disease, or chronic kidney disease (HCC) Unspecified hypertensive heart and kidney disease with heart failure and with chronic kidney disease stage I through stage IV, or unspecified Pleural effusion Unspecified pleural effusion Collagenous colitis Other and unspecified noninfectious gastroenteritis and colitis 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) Hypothyroidism, unspecified type Cerebral microvascular disease Cerebrovascular disease, unspecified Essential hypertension Unspecified essential hypertension Need for vaccination Need for prophylactic vaccination and inoculation against unspecified single disease Decreased hearing of both ears Weight loss, unintentional Loss of weight 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 SVT (supraventricular tachycardia) (HCC) Other specified cardiac dysrhythmias Chronic diastolic (congestive) heart failure (HCC) Iron deficiency anemia, unspecified iron deficiency anemia type Sleep disturbance Sleep disturbance, unspecified Primary osteoarthritis of first carpometacarpal joint of left hand Primary localized osteoarthrosis, hand Pre-operative examination- Primary Preoperative examination, unspecified Primary osteoarthritis of first carpometacarpal joint of left hand Primary localized osteoarthrosis, hand Chronic diastolic (congestive) heart failure (HCC) Atherosclerosis of 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 Essential hypertension Unspecified essential hypertension SVT (supraventricular tachycardia) (HCC) Other specified cardiac dysrhythmias Collagenous colitis Other and unspecified noninfectious gastroenteritis and colitis 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) Stage 3 chronic kidney disease, unspecified whether stage 3a or 3b CKD (HCC) Hypothyroidism, unspecified type Basal cell carcinoma, face Basal cell carcinoma of skin of other and unspecified parts of face Personal history of malignant neoplasm of breast Cerebral microvascular disease Cerebrovascular disease, unspecified Encephalopathy Encephalopathy, unspecified PERS HX OF IRRADIATION-face and neck Personal history of irradiation, presenting hazards to health SVT (supraventricular tachycardia) (HCC)- Primary Other specified cardiac dysrhythmias 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 disease, or chronic kidney disease (HCC) Unspecified hypertensive heart and kidney disease with heart failure and with chronic kidney disease stage I through stage IV, or unspecified 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) Atherosclerosis of 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 Exertional dyspnea Other dyspnea and respiratory abnormality Sadness 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 Neoplasm of unspecified nature of digestive system Encounter for immunization Need for other specified prophylactic vaccination against single bacterial disease Chronic diastolic (congestive) heart failure (HCC) Stage 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, or chronic kidney disease (HCC) Unspecified hypertensive heart and kidney disease with heart failure and with chronic kidney disease stage I through stage IV, or unspecified SVT (supraventricular tachycardia) (HCC) Other specified cardiac dysrhythmias Essential hypertension Unspecified essential hypertension Situational depression Adjustment disorder with depressed mood Exertional dyspnea Other dyspnea and respiratory abnormality [facility] Essential hypertension- Primary Unspecified essential hypertension Atherosclerosis of 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 Changes in vascular appearance of retina, bilateral Urinary calculus, unspecified Bcc L cheek 02/22 Basal cell carcinoma of skin of other and unspecified parts of face PERS HX OF IRRADIATION-face and neck Personal history of irradiation, presenting hazards to health CKD (chronic kidney disease) stage 3, GFR 30-59 ml/min (HCC) Chronic kidney disease, Stage III (moderate) Malignant neoplasm of lower-outer quadrant of right female breast (HCC) Malignant neoplasm of lower-outer quadrant of female breast Hypothyroidism, unspecified type Elevated blood uric acid level Other abnormal blood chemistry Localized edema Edema Chronic knee pain, unspecified laterality- Primary Primary osteoarthritis of right knee Primary localized osteoarthrosis, lower leg Primary osteoarthritis of right knee- Primary Primary localized osteoarthrosis, lower leg Medicare welcome exam- Primary Routine general medical examination at a health care facility Encephalopathy Encephalopathy, unspecified 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 disease, or chronic kidney disease (HCC) Unspecified hypertensive heart and kidney disease with heart failure and with chronic kidney disease stage I through stage IV, or unspecified Pleural effusion Unspecified pleural effusion Collagenous colitis Other and unspecified noninfectious gastroenteritis and colitis 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) Hypothyroidism, unspecified type Cerebral microvascular disease Cerebrovascular disease, unspecified Essential hypertension Unspecified essential hypertension Need for vaccination Need for prophylactic vaccination and inoculation against unspecified single disease Decreased hearing of both ears Weight loss, unintentional Loss of weight 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 SVT (supraventricular tachycardia) (HCC) Other specified cardiac dysrhythmias Chronic diastolic (congestive) heart failure (HCC) Iron deficiency anemia, unspecified iron deficiency anemia type Sleep disturbance Sleep disturbance, unspecified Primary osteoarthritis of first carpometacarpal joint of left hand Primary localized osteoarthrosis, hand Pre-operative examination- Primary Preoperative examination, unspecified Primary osteoarthritis of first carpometacarpal joint of left hand Primary localized osteoarthrosis, hand Chronic diastolic (congestive) heart failure (HCC) Atherosclerosis of 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 Essential hypertension Unspecified essential hypertension SVT (supraventricular tachycardia) (HCC) Other specified cardiac dysrhythmias Collagenous colitis Other and unspecified noninfectious gastroenteritis and colitis 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) Stage 3 chronic kidney disease, unspecified whether stage 3a or 3b CKD (HCC) Hypothyroidism, unspecified type Basal cell carcinoma, face Basal cell carcinoma of skin of other and unspecified parts of face Personal history of malignant neoplasm of breast Cerebral microvascular disease Cerebrovascular disease, unspecified Encephalopathy Encephalopathy, unspecified PERS HX OF IRRADIATION-face and neck Personal history of irradiation, presenting hazards to health SVT (supraventricular tachycardia) (HCC)- Primary Other specified cardiac dysrhythmias 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 disease, or chronic kidney disease (HCC) Unspecified hypertensive heart and kidney disease with heart failure and with chronic kidney disease stage I through stage IV, or unspecified 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) Atherosclerosis of 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 Exertional dyspnea Other dyspnea and respiratory abnormality Sadness 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 Neoplasm of unspecified nature of digestive system Encounter for immunization Need for other specified prophylactic vaccination against single bacterial disease Chronic diastolic (congestive) heart failure (HCC) Stage 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, or chronic kidney disease (HCC) Unspecified hypertensive heart and kidney disease with heart failure and with chronic kidney disease stage I through stage IV, or unspecified SVT (supraventricular tachycardia) (HCC) Other specified cardiac dysrhythmias Essential hypertension Unspecified essential hypertension Situational depression Adjustment disorder with depressed mood Urgency of urination- Primary [facility] Diagnosis Essential hypertension- Primary Unspecified essential hypertension Atherosclerosis of 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 Changes in vascular appearance of retina, bilateral Urinary calculus, unspecified Bcc L cheek 02/22 Basal cell carcinoma of skin of other and unspecified parts of face PERS HX OF IRRADIATION-face and neck Personal history of irradiation, presenting hazards to health CKD (chronic kidney disease) stage 3, GFR 30-59 ml/min (HCC) Chronic kidney disease, Stage III (moderate) Malignant neoplasm of lower-outer quadrant of right female breast (HCC) Malignant neoplasm of lower-outer quadrant of female breast Hypothyroidism, unspecified type Elevated blood uric acid level Other abnormal blood chemistry Localized edema Edema Chronic knee pain, unspecified laterality- Primary Primary osteoarthritis of right knee Primary localized osteoarthrosis, lower leg Primary osteoarthritis of right knee- Primary Primary localized osteoarthrosis, lower leg Medicare welcome exam- Primary Routine general medical examination at a health care facility Encephalopathy Encephalopathy, unspecified 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 disease, or chronic kidney disease (HCC) Unspecified hypertensive heart and kidney disease with heart failure and with chronic kidney disease stage I through stage IV, or unspecified Pleural effusion Unspecified pleural effusion Collagenous colitis Other and unspecified noninfectious gastroenteritis and colitis 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) Hypothyroidism, unspecified type Cerebral microvascular disease Cerebrovascular disease, unspecified Essential hypertension Unspecified essential hypertension Need for vaccination Need for prophylactic vaccination and inoculation against unspecified single disease Decreased hearing of both ears Weight loss, unintentional Loss of weight 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 SVT (supraventricular tachycardia) (HCC) Other specified cardiac dysrhythmias Chronic diastolic (congestive) heart failure (HCC) Iron deficiency anemia, unspecified iron deficiency anemia type Sleep disturbance Sleep disturbance, unspecified Primary osteoarthritis of first carpometacarpal joint of left hand Primary localized osteoarthrosis, hand Encounter for screening mammogram for malignant neoplasm of breast Other screening mammogram Pre-operative examination- Primary Preoperative examination, unspecified Primary osteoarthritis of first carpometacarpal joint of left hand Primary localized osteoarthrosis, hand Chronic diastolic (congestive) heart failure (HCC) Atherosclerosis of 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 Essential hypertension Unspecified essential hypertension SVT (supraventricular tachycardia) (HCC) Other specified cardiac dysrhythmias Collagenous colitis Other and unspecified noninfectious gastroenteritis and colitis 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) Stage 3 chronic kidney disease, unspecified whether stage 3a or 3b CKD (HCC) Hypothyroidism, unspecified type Basal cell carcinoma, face Basal cell carcinoma of skin of other and unspecified parts of face Personal history of malignant neoplasm of breast Cerebral microvascular disease Cerebrovascular disease, unspecified Encephalopathy Encephalopathy, unspecified PERS HX OF IRRADIATION-face and neck Personal history of irradiation, presenting hazards to health SVT (supraventricular tachycardia) (HCC)- Primary Other specified cardiac dysrhythmias 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 disease, or chronic kidney disease (HCC) Unspecified hypertensive heart and kidney disease with heart failure and with chronic kidney disease stage I through stage IV, or unspecified 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) Atherosclerosis of 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 Exertional dyspnea Other dyspnea and respiratory abnormality Sadness 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 Neoplasm of unspecified nature of digestive system Encounter for immunization Need for other specified prophylactic vaccination against single bacterial disease Chronic diastolic (congestive) heart failure (HCC) Stage 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, or chronic kidney disease (HCC) Unspecified hypertensive heart and kidney disease with heart failure and with chronic kidney disease stage I through stage IV, or unspecified SVT (supraventricular tachycardia) (HCC) Other specified cardiac dysrhythmias Essential hypertension Unspecified essential hypertension Situational depression Adjustment disorder with depressed mood [facility] Diagnosis Essential hypertension- Primary Unspecified essential hypertension Atherosclerosis of 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 Changes in vascular appearance of retina, bilateral Urinary calculus, unspecified Bcc L cheek 02/22 Basal cell carcinoma of skin of other and unspecified parts of face PERS HX OF IRRADIATION-face and neck Personal history of irradiation, presenting hazards to health CKD (chronic kidney disease) stage 3, GFR 30-59 ml/min (HCC) Chronic kidney disease, Stage III (moderate) Malignant neoplasm of lower-outer quadrant of right female breast (HCC) Malignant neoplasm of lower-outer quadrant of female breast Hypothyroidism, unspecified type Elevated blood uric acid level Other abnormal blood chemistry Localized edema Edema Chronic knee pain, unspecified laterality- Primary Primary osteoarthritis of right knee Primary localized osteoarthrosis, lower leg Primary osteoarthritis of right knee- Primary Primary localized osteoarthrosis, lower leg Medicare welcome exam- Primary Routine general medical examination at a health care facility Encephalopathy Encephalopathy, unspecified 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 disease, or chronic kidney disease (HCC) Unspecified hypertensive heart and kidney disease with heart failure and with chronic kidney disease stage I through stage IV, or unspecified Pleural effusion Unspecified pleural effusion Collagenous colitis Other and unspecified noninfectious gastroenteritis and colitis 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) Hypothyroidism, unspecified type Cerebral microvascular disease Cerebrovascular disease, unspecified Essential hypertension Unspecified essential hypertension Need for vaccination Need for prophylactic vaccination and inoculation against unspecified single disease Decreased hearing of both ears Weight loss, unintentional Loss of weight Left wrist pain Pain in joint, forearm 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 SVT (supraventricular tachycardia) (HCC) Other specified cardiac dysrhythmias Chronic diastolic (congestive) heart failure (HCC) Iron deficiency anemia, unspecified iron deficiency anemia type Sleep disturbance Sleep disturbance, unspecified Primary osteoarthritis of first carpometacarpal joint of left hand Primary localized osteoarthrosis, hand Pre-operative examination- Primary Preoperative examination, unspecified Primary osteoarthritis of first carpometacarpal joint of left hand Primary localized osteoarthrosis, hand Chronic diastolic (congestive) heart failure (HCC) Atherosclerosis of 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 Essential hypertension Unspecified essential hypertension SVT (supraventricular tachycardia) (HCC) Other specified cardiac dysrhythmias Collagenous colitis Other and unspecified noninfectious gastroenteritis and colitis 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) Stage 3 chronic kidney disease, unspecified whether stage 3a or 3b CKD (HCC) Hypothyroidism, unspecified type Basal cell carcinoma, face Basal cell carcinoma of skin of other and unspecified parts of face Personal history of malignant neoplasm of breast Cerebral microvascular disease Cerebrovascular disease, unspecified Encephalopathy Encephalopathy, unspecified PERS HX OF IRRADIATION-face and neck Personal history of irradiation, presenting hazards to health SVT (supraventricular tachycardia) (HCC)- Primary Other specified cardiac dysrhythmias 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 disease, or chronic kidney disease (HCC) Unspecified hypertensive heart and kidney disease with heart failure and with chronic kidney disease stage I through stage IV, or unspecified 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) Atherosclerosis of 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 Exertional dyspnea Other dyspnea and respiratory abnormality Sadness 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 Neoplasm of unspecified nature of digestive system Encounter for immunization Need for other specified prophylactic vaccination against single bacterial disease Chronic diastolic (congestive) heart failure (HCC) Stage 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, or chronic kidney disease (HCC) Unspecified hypertensive heart and kidney disease with heart failure and with chronic kidney disease stage I through stage IV, or unspecified SVT (supraventricular tachycardia) (HCC) Other specified cardiac dysrhythmias Essential hypertension Unspecified essential hypertension Situational depression Adjustment disorder with depressed mood [facility] Diagnosis Essential hypertension- Primary Unspecified essential hypertension Atherosclerosis of 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 Changes in vascular appearance of retina, bilateral Urinary calculus, unspecified Bcc L cheek 02/22 Basal cell carcinoma of skin of other and unspecified parts of face PERS HX OF IRRADIATION-face and neck Personal history of irradiation, presenting hazards to health CKD (chronic kidney disease) stage 3, GFR 30-59 ml/min (HCC) Chronic kidney disease, Stage III (moderate) Malignant neoplasm of lower-outer quadrant of right female breast (HCC) Malignant neoplasm of lower-outer quadrant of female breast Hypothyroidism, unspecified type Elevated blood uric acid level Other abnormal blood chemistry Localized edema Edema Chronic knee pain, unspecified laterality- Primary Primary osteoarthritis of right knee Primary localized osteoarthrosis, lower leg Primary osteoarthritis of right knee- Primary Primary localized osteoarthrosis, lower leg Medicare welcome exam- Primary Routine general medical examination at a health care facility Encephalopathy Encephalopathy, unspecified 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 disease, or chronic kidney disease (HCC) Unspecified hypertensive heart and kidney disease with heart failure and with chronic kidney disease stage I through stage IV, or unspecified Pleural effusion Unspecified pleural effusion Collagenous colitis Other and unspecified noninfectious gastroenteritis and colitis 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) Hypothyroidism, unspecified type Cerebral microvascular disease Cerebrovascular disease, unspecified Essential hypertension Unspecified essential hypertension Need for vaccination Need for prophylactic vaccination and inoculation against unspecified single disease Decreased hearing of both ears Weight loss, unintentional Loss of weight 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 SVT (supraventricular tachycardia) (HCC) Other specified cardiac dysrhythmias Chronic diastolic (congestive) heart failure (HCC) Iron deficiency anemia, unspecified iron deficiency anemia type Sleep disturbance Sleep disturbance, unspecified Primary osteoarthritis of first carpometacarpal joint of left hand Primary localized osteoarthrosis, hand Pre-operative examination- Primary Preoperative examination, unspecified Primary osteoarthritis of first carpometacarpal joint of left hand Primary localized osteoarthrosis, hand Chronic diastolic (congestive) heart failure (HCC) Atherosclerosis of 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 Essential hypertension Unspecified essential hypertension SVT (supraventricular tachycardia) (HCC) Other specified cardiac dysrhythmias Collagenous colitis Other and unspecified noninfectious gastroenteritis and colitis 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) Stage 3 chronic kidney disease, unspecified whether stage 3a or 3b CKD (HCC) Hypothyroidism, unspecified type Basal cell carcinoma, face Basal cell carcinoma of skin of other and unspecified parts of face Personal history of malignant neoplasm of breast Cerebral microvascular disease Cerebrovascular disease, unspecified Encephalopathy Encephalopathy, unspecified PERS HX OF IRRADIATION-face and neck Personal history of irradiation, presenting hazards to health SVT (supraventricular tachycardia) (HCC)- Primary Other specified cardiac dysrhythmias 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 disease, or chronic kidney disease (HCC) Unspecified hypertensive heart and kidney disease with heart failure and with chronic kidney disease stage I through stage IV, or unspecified 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) Atherosclerosis of 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 Exertional dyspnea Other dyspnea and respiratory abnormality Sadness 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 Neoplasm of unspecified nature of digestive system Encounter for immunization Need for other specified prophylactic vaccination against single bacterial disease Chronic diastolic (congestive) heart failure (HCC) Stage 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, or chronic kidney disease (HCC) Unspecified hypertensive heart and kidney disease with heart failure and with chronic kidney disease stage I through stage IV, or unspecified SVT (supraventricular tachycardia) (HCC) Other specified cardiac dysrhythmias Essential hypertension Unspecified essential hypertension Situational depression Adjustment disorder with depressed mood Neoplasm of unspecified behavior of bone, soft tissue, and skin- Primary Telogen effluvium Seborrheic dermatitis Seborrheic dermatitis, unspecified Hx of nonmelanoma skin cancer Personal history of other malignant neoplasm of skin Photoaging of skin Other dermatitis due to solar radiation Personal history of malignant neoplasm of breast Chronic diastolic (congestive) heart failure (HCC) [facility] Essential hypertension- Primary Unspecified essential hypertension Atherosclerosis of 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 Changes in vascular appearance of retina, bilateral Urinary calculus, unspecified Bcc L cheek 02/22 Basal cell carcinoma of skin of other and unspecified parts of face PERS HX OF IRRADIATION-face and neck Personal history of irradiation, presenting hazards to health CKD (chronic kidney disease) stage 3, GFR 30-59 ml/min (HCC) Chronic kidney disease, Stage III (moderate) Malignant neoplasm of lower-outer quadrant of right female breast (HCC) Malignant neoplasm of lower-outer quadrant of female breast Hypothyroidism, unspecified type Elevated blood uric acid level Other abnormal blood chemistry Localized edema Edema Chronic knee pain, unspecified laterality- Primary Primary osteoarthritis of right knee Primary localized osteoarthrosis, lower leg Primary osteoarthritis of right knee- Primary Primary localized osteoarthrosis, lower leg Medicare welcome exam- Primary Routine general medical examination at a health care facility Encephalopathy Encephalopathy, unspecified 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 disease, or chronic kidney disease (HCC) Unspecified hypertensive heart and kidney disease with heart failure and with chronic kidney disease stage I through stage IV, or unspecified Pleural effusion Unspecified pleural effusion Collagenous colitis Other and unspecified noninfectious gastroenteritis and colitis 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) Hypothyroidism, unspecified type Cerebral microvascular disease Cerebrovascular disease, unspecified Essential hypertension Unspecified essential hypertension Need for vaccination Need for prophylactic vaccination and inoculation against unspecified single disease Decreased hearing of both ears Weight loss, unintentional Loss of weight 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 SVT (supraventricular tachycardia) (HCC) Other specified cardiac dysrhythmias Chronic diastolic (congestive) heart failure (HCC) Iron deficiency anemia, unspecified iron deficiency anemia type Sleep disturbance Sleep disturbance, unspecified Primary osteoarthritis of first carpometacarpal joint of left hand Primary localized osteoarthrosis, hand Pre-operative examination- Primary Preoperative examination, unspecified Primary osteoarthritis of first carpometacarpal joint of left hand Primary localized osteoarthrosis, hand Chronic diastolic (congestive) heart failure (HCC) Atherosclerosis of 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 Essential hypertension Unspecified essential hypertension SVT (supraventricular tachycardia) (HCC) Other specified cardiac dysrhythmias Collagenous colitis Other and unspecified noninfectious gastroenteritis and colitis 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) Stage 3 chronic kidney disease, unspecified whether stage 3a or 3b CKD (HCC) Hypothyroidism, unspecified type Basal cell carcinoma, face Basal cell carcinoma of skin of other and unspecified parts of face Personal history of malignant neoplasm of breast Cerebral microvascular disease Cerebrovascular disease, unspecified Encephalopathy Encephalopathy, unspecified PERS HX OF IRRADIATION-face and neck Personal history of irradiation, presenting hazards to health SVT (supraventricular tachycardia) (HCC)- Primary Other specified cardiac dysrhythmias 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 disease, or chronic kidney disease (HCC) Unspecified hypertensive heart and kidney disease with heart failure and with chronic kidney disease stage I through stage IV, or unspecified 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) Atherosclerosis of 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 Exertional dyspnea Other dyspnea and respiratory abnormality Sadness 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 Neoplasm of unspecified nature of digestive system Encounter for immunization Need for other specified prophylactic vaccination against single bacterial disease Chronic diastolic (congestive) heart failure (HCC) Stage 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, or chronic kidney disease (HCC) Unspecified hypertensive heart and kidney disease with heart failure and with chronic kidney disease stage I through stage IV, or unspecified SVT (supraventricular tachycardia) (HCC) Other specified cardiac dysrhythmias Essential hypertension Unspecified essential hypertension Situational depression Adjustment disorder with depressed mood Essential hypertension Unspecified essential hypertension [facility] Essential hypertension- Primary Unspecified essential hypertension Atherosclerosis of 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 Changes in vascular appearance of retina, bilateral Urinary calculus, unspecified Bcc L cheek 02/22 Basal cell carcinoma of skin of other and unspecified parts of face PERS HX OF IRRADIATION-face and neck Personal history of irradiation, presenting hazards to health CKD (chronic kidney disease) stage 3, GFR 30-59 ml/min (HCC) Chronic kidney disease, Stage III (moderate) Malignant neoplasm of lower-outer quadrant of right female breast (HCC) Malignant neoplasm of lower-outer quadrant of female breast Hypothyroidism, unspecified type Elevated blood uric acid level Other abnormal blood chemistry Localized edema Edema Chronic knee pain, unspecified laterality- Primary Primary osteoarthritis of right knee Primary localized osteoarthrosis, lower leg Primary osteoarthritis of right knee- Primary Primary localized osteoarthrosis, lower leg Medicare welcome exam- Primary Routine general medical examination at a health care facility Encephalopathy Encephalopathy, unspecified 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 disease, or chronic kidney disease (HCC) Unspecified hypertensive heart and kidney disease with heart failure and with chronic kidney disease stage I through stage IV, or unspecified Pleural effusion Unspecified pleural effusion Collagenous colitis Other and unspecified noninfectious gastroenteritis and colitis 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) Hypothyroidism, unspecified type Cerebral microvascular disease Cerebrovascular disease, unspecified Essential hypertension Unspecified essential hypertension Need for vaccination Need for prophylactic vaccination and inoculation against unspecified single disease Decreased hearing of both ears Weight loss, unintentional Loss of weight 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 SVT (supraventricular tachycardia) (HCC) Other specified cardiac dysrhythmias Chronic diastolic (congestive) heart failure (HCC) Iron deficiency anemia, unspecified iron deficiency anemia type Sleep disturbance Sleep disturbance, unspecified Primary osteoarthritis of first carpometacarpal joint of left hand Primary localized osteoarthrosis, hand Pre-operative examination- Primary Preoperative examination, unspecified Primary osteoarthritis of first carpometacarpal joint of left hand Primary localized osteoarthrosis, hand Chronic diastolic (congestive) heart failure (HCC) Atherosclerosis of 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 Essential hypertension Unspecified essential hypertension SVT (supraventricular tachycardia) (HCC) Other specified cardiac dysrhythmias Collagenous colitis Other and unspecified noninfectious gastroenteritis and colitis 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) Stage 3 chronic kidney disease, unspecified whether stage 3a or 3b CKD (HCC) Hypothyroidism, unspecified type Basal cell carcinoma, face Basal cell carcinoma of skin of other and unspecified parts of face Personal history of malignant neoplasm of breast Cerebral microvascular disease Cerebrovascular disease, unspecified Encephalopathy Encephalopathy, unspecified PERS HX OF IRRADIATION-face and neck Personal history of irradiation, presenting hazards to health SVT (supraventricular tachycardia) (HCC)- Primary Other specified cardiac dysrhythmias 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 disease, or chronic kidney disease (HCC) Unspecified hypertensive heart and kidney disease with heart failure and with chronic kidney disease stage I through stage IV, or unspecified 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) Atherosclerosis of 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 Exertional dyspnea Other dyspnea and respiratory abnormality Sadness 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 Neoplasm of unspecified nature of digestive system Encounter for immunization Need for other specified prophylactic vaccination against single bacterial disease Chronic diastolic (congestive) heart failure (HCC) Stage 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, or chronic kidney disease (HCC) Unspecified hypertensive heart and kidney disease with heart failure and with chronic kidney disease stage I through stage IV, or unspecified SVT (supraventricular tachycardia) (HCC) Other specified cardiac dysrhythmias Essential hypertension Unspecified essential hypertension Situational depression Adjustment disorder with depressed mood Chronic diastolic (congestive) heart failure (HCC)- Primary [facility] Diagnosis Essential hypertension- Primary Unspecified essential hypertension Atherosclerosis of 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 Changes in vascular appearance of retina, bilateral Urinary calculus, unspecified Bcc L cheek 02/22 Basal cell carcinoma of skin of other and unspecified parts of face PERS HX OF IRRADIATION-face and neck Personal history of irradiation, presenting hazards to health CKD (chronic kidney disease) stage 3, GFR 30-59 ml/min (HCC) Chronic kidney disease, Stage III (moderate) Malignant neoplasm of lower-outer quadrant of right female breast (HCC) Malignant neoplasm of lower-outer quadrant of female breast Hypothyroidism, unspecified type Elevated blood uric acid level Other abnormal blood chemistry Localized edema Edema Chronic knee pain, unspecified laterality- Primary Primary osteoarthritis of right knee Primary localized osteoarthrosis, lower leg Primary osteoarthritis of right knee- Primary Primary localized osteoarthrosis, lower leg Medicare welcome exam- Primary Routine general medical examination at a health care facility Encephalopathy Encephalopathy, unspecified 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 disease, or chronic kidney disease (HCC) Unspecified hypertensive heart and kidney disease with heart failure and with chronic kidney disease stage I through stage IV, or unspecified Pleural effusion Unspecified pleural effusion Collagenous colitis Other and unspecified noninfectious gastroenteritis and colitis 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) Hypothyroidism, unspecified type Cerebral microvascular disease Cerebrovascular disease, unspecified Essential hypertension Unspecified essential hypertension Need for vaccination Need for prophylactic vaccination and inoculation against unspecified single disease Decreased hearing of both ears Weight loss, unintentional Loss of weight 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 SVT (supraventricular tachycardia) (HCC) Other specified cardiac dysrhythmias Chronic diastolic (congestive) heart failure (HCC) Iron deficiency anemia, unspecified iron deficiency anemia type Sleep disturbance Sleep disturbance, unspecified Primary osteoarthritis of first carpometacarpal joint of left hand Primary localized osteoarthrosis, hand Pre-operative examination- Primary Preoperative examination, unspecified Primary osteoarthritis of first carpometacarpal joint of left hand Primary localized osteoarthrosis, hand Chronic diastolic (congestive) heart failure (HCC) Atherosclerosis of 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 Essential hypertension Unspecified essential hypertension SVT (supraventricular tachycardia) (HCC) Other specified cardiac dysrhythmias Collagenous colitis Other and unspecified noninfectious gastroenteritis and colitis 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) Stage 3 chronic kidney disease, unspecified whether stage 3a or 3b CKD (HCC) Hypothyroidism, unspecified type Basal cell carcinoma, face Basal cell carcinoma of skin of other and unspecified parts of face Personal history of malignant neoplasm of breast Cerebral microvascular disease Cerebrovascular disease, unspecified Encephalopathy Encephalopathy, unspecified PERS HX OF IRRADIATION-face and neck Personal history of irradiation, presenting hazards to health SVT (supraventricular tachycardia) (HCC)- Primary Other specified cardiac dysrhythmias 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 disease, or chronic kidney disease (HCC) Unspecified hypertensive heart and kidney disease with heart failure and with chronic kidney disease stage I through stage IV, or unspecified 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) Atherosclerosis of 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 Exertional dyspnea Other dyspnea and respiratory abnormality Sadness 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 Neoplasm of unspecified nature of digestive system Encounter for immunization Need for other specified prophylactic vaccination against single bacterial disease Chronic diastolic (congestive) heart failure (HCC) Stage 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, or chronic kidney disease (HCC) Unspecified hypertensive heart and kidney disease with heart failure and with chronic kidney disease stage I through stage IV, or unspecified SVT (supraventricular tachycardia) (HCC) Other specified cardiac dysrhythmias Essential hypertension Unspecified essential hypertension Situational depression Adjustment disorder with depressed mood Essential hypertension Unspecified essential hypertension [facility] Diagnosis Essential hypertension- Primary Unspecified essential hypertension Atherosclerosis of 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 Changes in vascular appearance of retina, bilateral Urinary calculus, unspecified Bcc L cheek 02/22 Basal cell carcinoma of skin of other and unspecified parts of face PERS HX OF IRRADIATION-face and neck Personal history of irradiation, presenting hazards to health CKD (chronic kidney disease) stage 3, GFR 30-59 ml/min (HCC) Chronic kidney disease, Stage III (moderate) Malignant neoplasm of lower-outer quadrant of right female breast (HCC) Malignant neoplasm of lower-outer quadrant of female breast Hypothyroidism, unspecified type Elevated blood uric acid level Other abnormal blood chemistry Localized edema Edema Chronic knee pain, unspecified laterality- Primary Primary osteoarthritis of right knee Primary localized osteoarthrosis, lower leg Primary osteoarthritis of right knee- Primary Primary localized osteoarthrosis, lower leg Medicare welcome exam- Primary Routine general medical examination at a health care facility Encephalopathy Encephalopathy, unspecified 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 disease, or chronic kidney disease (HCC) Unspecified hypertensive heart and kidney disease with heart failure and with chronic kidney disease stage I through stage IV, or unspecified Pleural effusion Unspecified pleural effusion Collagenous colitis Other and unspecified noninfectious gastroenteritis and colitis 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) Hypothyroidism, unspecified type Cerebral microvascular disease Cerebrovascular disease, unspecified Essential hypertension Unspecified essential hypertension Need for vaccination Need for prophylactic vaccination and inoculation against unspecified single disease Decreased hearing of both ears Weight loss, unintentional Loss of weight 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 SVT (supraventricular tachycardia) (HCC) Other specified cardiac dysrhythmias Chronic diastolic (congestive) heart failure (HCC) Iron deficiency anemia, unspecified iron deficiency anemia type Sleep disturbance Sleep disturbance, unspecified Primary osteoarthritis of first carpometacarpal joint of left hand Primary localized osteoarthrosis, hand Pre-operative examination- Primary Preoperative examination, unspecified Primary osteoarthritis of first carpometacarpal joint of left hand Primary localized osteoarthrosis, hand Chronic diastolic (congestive) heart failure (HCC) Atherosclerosis of 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 Essential hypertension Unspecified essential hypertension SVT (supraventricular tachycardia) (HCC) Other specified cardiac dysrhythmias Collagenous colitis Other and unspecified noninfectious gastroenteritis and colitis 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) Stage 3 chronic kidney disease, unspecified whether stage 3a or 3b CKD (HCC) Hypothyroidism, unspecified type Basal cell carcinoma, face Basal cell carcinoma of skin of other and unspecified parts of face Personal history of malignant neoplasm of breast Cerebral microvascular disease Cerebrovascular disease, unspecified Encephalopathy Encephalopathy, unspecified PERS HX OF IRRADIATION-face and neck Personal history of irradiation, presenting hazards to health SVT (supraventricular tachycardia) (HCC)- Primary Other specified cardiac dysrhythmias 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 disease, or chronic kidney disease (HCC) Unspecified hypertensive heart and kidney disease with heart failure and with chronic kidney disease stage I through stage IV, or unspecified 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) Atherosclerosis of 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 Exertional dyspnea Other dyspnea and respiratory abnormality Sadness 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 Neoplasm of unspecified nature of digestive system Encounter for immunization Need for other specified prophylactic vaccination against single bacterial disease Chronic diastolic (congestive) heart failure (HCC) Stage 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, or chronic kidney disease (HCC) Unspecified hypertensive heart and kidney disease with heart failure and with chronic kidney disease stage I through stage IV, or unspecified SVT (supraventricular tachycardia) (HCC) Other specified cardiac dysrhythmias Essential hypertension Unspecified essential hypertension Situational depression Adjustment disorder with depressed mood 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)- Primary [facility] Diagnosis Essential hypertension- Primary Unspecified essential hypertension Atherosclerosis of 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 Changes in vascular appearance of retina, bilateral Urinary calculus, unspecified Bcc L cheek 02/22 Basal cell carcinoma of skin of other and unspecified parts of face PERS HX OF IRRADIATION-face and neck Personal history of irradiation, presenting hazards to health CKD (chronic kidney disease) stage 3, GFR 30-59 ml/min (HCC) Chronic kidney disease, Stage III (moderate) Malignant neoplasm of lower-outer quadrant of right female breast (HCC) Malignant neoplasm of lower-outer quadrant of female breast Hypothyroidism, unspecified type Elevated blood uric acid level Other abnormal blood chemistry Localized edema Edema Chronic knee pain, unspecified laterality- Primary Primary osteoarthritis of right knee Primary localized osteoarthrosis, lower leg Primary osteoarthritis of right knee- Primary Primary localized osteoarthrosis, lower leg Medicare welcome exam- Primary Routine general medical examination at a health care facility Encephalopathy Encephalopathy, unspecified 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 disease, or chronic kidney disease (HCC) Unspecified hypertensive heart and kidney disease with heart failure and with chronic kidney disease stage I through stage IV, or unspecified Pleural effusion Unspecified pleural effusion Collagenous colitis Other and unspecified noninfectious gastroenteritis and colitis 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) Hypothyroidism, unspecified type Cerebral microvascular disease Cerebrovascular disease, unspecified Essential hypertension Unspecified essential hypertension Need for vaccination Need for prophylactic vaccination and inoculation against unspecified single disease Decreased hearing of both ears Weight loss, unintentional Loss of weight 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 SVT (supraventricular tachycardia) (HCC) Other specified cardiac dysrhythmias Chronic diastolic (congestive) heart failure (HCC) Iron deficiency anemia, unspecified iron deficiency anemia type Sleep disturbance Sleep disturbance, unspecified Primary osteoarthritis of first carpometacarpal joint of left hand Primary localized osteoarthrosis, hand Pre-operative examination- Primary Preoperative examination, unspecified Primary osteoarthritis of first carpometacarpal joint of left hand Primary localized osteoarthrosis, hand Chronic diastolic (congestive) heart failure (HCC) Atherosclerosis of 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 Essential hypertension Unspecified essential hypertension SVT (supraventricular tachycardia) (HCC) Other specified cardiac dysrhythmias Collagenous colitis Other and unspecified noninfectious gastroenteritis and colitis 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) Stage 3 chronic kidney disease, unspecified whether stage 3a or 3b CKD (HCC) Hypothyroidism, unspecified type Basal cell carcinoma, face Basal cell carcinoma of skin of other and unspecified parts of face Personal history of malignant neoplasm of breast Cerebral microvascular disease Cerebrovascular disease, unspecified Encephalopathy Encephalopathy, unspecified PERS HX OF IRRADIATION-face and neck Personal history of irradiation, presenting hazards to health SVT (supraventricular tachycardia) (HCC)- Primary Other specified cardiac dysrhythmias 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 disease, or chronic kidney disease (HCC) Unspecified hypertensive heart and kidney disease with heart failure and with chronic kidney disease stage I through stage IV, or unspecified 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) Atherosclerosis of 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 Exertional dyspnea Other dyspnea and respiratory abnormality Sadness 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 Neoplasm of unspecified nature of digestive system Encounter for immunization Need for other specified prophylactic vaccination against single bacterial disease Chronic diastolic (congestive) heart failure (HCC) Stage 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, or chronic kidney disease (HCC) Unspecified hypertensive heart and kidney disease with heart failure and with chronic kidney disease stage I through stage IV, or unspecified SVT (supraventricular tachycardia) (HCC) Other specified cardiac dysrhythmias Essential hypertension Unspecified essential hypertension Situational depression Adjustment disorder with depressed mood Essential hypertension Unspecified essential hypertension [facility] Essential hypertension- Primary Unspecified essential hypertension Atherosclerosis of 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 Changes in vascular appearance of retina, bilateral Urinary calculus, unspecified Bcc L cheek 02/22 Basal cell carcinoma of skin of other and unspecified parts of face PERS HX OF IRRADIATION-face and neck Personal history of irradiation, presenting hazards to health CKD (chronic kidney disease) stage 3, GFR 30-59 ml/min (HCC) Chronic kidney disease, Stage III (moderate) Malignant neoplasm of lower-outer quadrant of right female breast (HCC) Malignant neoplasm of lower-outer quadrant of female breast Hypothyroidism, unspecified type Elevated blood uric acid level Other abnormal blood chemistry Localized edema Edema Chronic knee pain, unspecified laterality- Primary Primary osteoarthritis of right knee Primary localized osteoarthrosis, lower leg Primary osteoarthritis of right knee- Primary Primary localized osteoarthrosis, lower leg Medicare welcome exam- Primary Routine general medical examination at a health care facility Encephalopathy Encephalopathy, unspecified 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 disease, or chronic kidney disease (HCC) Unspecified hypertensive heart and kidney disease with heart failure and with chronic kidney disease stage I through stage IV, or unspecified Pleural effusion Unspecified pleural effusion Collagenous colitis Other and unspecified noninfectious gastroenteritis and colitis 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) Hypothyroidism, unspecified type Cerebral microvascular disease Cerebrovascular disease, unspecified Essential hypertension Unspecified essential hypertension Need for vaccination Need for prophylactic vaccination and inoculation against unspecified single disease Decreased hearing of both ears Weight loss, unintentional Loss of weight 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 SVT (supraventricular tachycardia) (HCC) Other specified cardiac dysrhythmias Chronic diastolic (congestive) heart failure (HCC) Iron deficiency anemia, unspecified iron deficiency anemia type Sleep disturbance Sleep disturbance, unspecified Primary osteoarthritis of first carpometacarpal joint of left hand Primary localized osteoarthrosis, hand Pre-operative examination- Primary Preoperative examination, unspecified Primary osteoarthritis of first carpometacarpal joint of left hand Primary localized osteoarthrosis, hand Chronic diastolic (congestive) heart failure (HCC) Atherosclerosis of 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 Essential hypertension Unspecified essential hypertension SVT (supraventricular tachycardia) (HCC) Other specified cardiac dysrhythmias Collagenous colitis Other and unspecified noninfectious gastroenteritis and colitis 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) Stage 3 chronic kidney disease, unspecified whether stage 3a or 3b CKD (HCC) Hypothyroidism, unspecified type Basal cell carcinoma, face Basal cell carcinoma of skin of other and unspecified parts of face Personal history of malignant neoplasm of breast Cerebral microvascular disease Cerebrovascular disease, unspecified Encephalopathy Encephalopathy, unspecified PERS HX OF IRRADIATION-face and neck Personal history of irradiation, presenting hazards to health SVT (supraventricular tachycardia) (HCC)- Primary Other specified cardiac dysrhythmias 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 disease, or chronic kidney disease (HCC) Unspecified hypertensive heart and kidney disease with heart failure and with chronic kidney disease stage I through stage IV, or unspecified 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) Atherosclerosis of 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 Exertional dyspnea Other dyspnea and respiratory abnormality Sadness 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 Neoplasm of unspecified nature of digestive system Encounter for immunization Need for other specified prophylactic vaccination against single bacterial disease Chronic diastolic (congestive) heart failure (HCC) Stage 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, or chronic kidney disease (HCC) Unspecified hypertensive heart and kidney disease with heart failure and with chronic kidney disease stage I through stage IV, or unspecified SVT (supraventricular tachycardia) (HCC) Other specified cardiac dysrhythmias Essential hypertension Unspecified essential hypertension Situational depression Adjustment disorder with depressed mood Telogen effluvium [facility] Diagnosis Essential hypertension- Primary Unspecified essential hypertension Atherosclerosis of 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 Changes in vascular appearance of retina, bilateral Urinary calculus, unspecified Bcc L cheek 02/22 Basal cell carcinoma of skin of other and unspecified parts of face PERS HX OF IRRADIATION-face and neck Personal history of irradiation, presenting hazards to health CKD (chronic kidney disease) stage 3, GFR 30-59 ml/min (HCC) Chronic kidney disease, Stage III (moderate) Malignant neoplasm of lower-outer quadrant of right female breast (HCC) Malignant neoplasm of lower-outer quadrant of female breast Hypothyroidism, unspecified type Elevated blood uric acid level Other abnormal blood chemistry Localized edema Edema Chronic knee pain, unspecified laterality- Primary Primary osteoarthritis of right knee Primary localized osteoarthrosis, lower leg Primary osteoarthritis of right knee- Primary Primary localized osteoarthrosis, lower leg Medicare welcome exam- Primary Routine general medical examination at a health care facility Encephalopathy Encephalopathy, unspecified 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 disease, or chronic kidney disease (HCC) Unspecified hypertensive heart and kidney disease with heart failure and with chronic kidney disease stage I through stage IV, or unspecified Pleural effusion Unspecified pleural effusion Collagenous colitis Other and unspecified noninfectious gastroenteritis and colitis Anemia due to stage 3b chronic kidney disease (HCC) Hypothyroidism, unspecified type Cerebral microvascular disease Cerebrovascular disease, unspecified Essential hypertension Unspecified essential hypertension Need for vaccination Need for prophylactic vaccination and inoculation against unspecified single disease Decreased hearing of both ears Weight loss, unintentional Loss of weight 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 SVT (supraventricular tachycardia) (HCC) Other specified cardiac dysrhythmias Chronic diastolic (congestive) heart failure (HCC) Iron deficiency anemia, unspecified iron deficiency anemia type Sleep disturbance Sleep disturbance, unspecified Primary osteoarthritis of first carpometacarpal joint of left hand Primary localized osteoarthrosis, hand Pre-operative examination- Primary Preoperative examination, unspecified Primary osteoarthritis of first carpometacarpal joint of left hand Primary localized osteoarthrosis, hand Chronic diastolic (congestive) heart failure (HCC) Atherosclerosis of 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 Essential hypertension Unspecified essential hypertension SVT (supraventricular tachycardia) (HCC) Other specified cardiac dysrhythmias Collagenous colitis Other and unspecified noninfectious gastroenteritis and colitis Anemia due to stage 3b chronic kidney disease (HCC) Stage 3 chronic kidney disease, unspecified whether stage 3a or 3b CKD (HCC) Hypothyroidism, unspecified type Basal cell carcinoma, face Basal cell carcinoma of skin of other and unspecified parts of face Personal history of malignant neoplasm of breast Cerebral microvascular disease Cerebrovascular disease, unspecified Encephalopathy Encephalopathy, unspecified PERS HX OF IRRADIATION-face and neck Personal history of irradiation, presenting hazards to health SVT (supraventricular tachycardia) (HCC)- Primary Other specified cardiac dysrhythmias 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 disease, or chronic kidney disease (HCC) Unspecified hypertensive heart and kidney disease with heart failure and with chronic kidney disease stage I through stage IV, or unspecified Anemia due to stage 3b chronic kidney disease (HCC) Atherosclerosis of 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 Exertional dyspnea Other dyspnea and respiratory abnormality Sadness 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 Neoplasm of unspecified nature of digestive system Encounter for immunization Need for other specified prophylactic vaccination against single bacterial disease Chronic diastolic (congestive) heart failure (HCC) Stage 3a chronic kidney disease (HCC) 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 disease, or chronic kidney disease (HCC) Unspecified hypertensive heart and kidney disease with heart failure and with chronic kidney disease stage I through stage IV, or unspecified SVT (supraventricular tachycardia) (HCC) Other specified cardiac dysrhythmias Essential hypertension Unspecified essential hypertension Situational depression Adjustment disorder with depressed mood Chronic thoracic back pain, unspecified back pain laterality- Primary [facility] Diagnosis Essential hypertension- Primary Unspecified essential hypertension Atherosclerosis of 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 Changes in vascular appearance of retina, bilateral Urinary calculus, unspecified Bcc L cheek 02/22 Basal cell carcinoma of skin of other and unspecified parts of face PERS HX OF IRRADIATION-face and neck Personal history of irradiation, presenting hazards to health CKD (chronic kidney disease) stage 3, GFR 30-59 ml/min (HCC) Chronic kidney disease, Stage III (moderate) Malignant neoplasm of lower-outer quadrant of right female breast (HCC) Malignant neoplasm of lower-outer quadrant of female breast Hypothyroidism, unspecified type Elevated blood uric acid level Other abnormal blood chemistry Localized edema Edema Chronic knee pain, unspecified laterality- Primary Primary osteoarthritis of right knee Primary localized osteoarthrosis, lower leg Primary osteoarthritis of right knee- Primary Primary localized osteoarthrosis, lower leg Medicare welcome exam- Primary Routine general medical examination at a health care facility Encephalopathy Encephalopathy, unspecified 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 disease, or chronic kidney disease (HCC) Unspecified hypertensive heart and kidney disease with heart failure and with chronic kidney disease stage I through stage IV, or unspecified Pleural effusion Unspecified pleural effusion Collagenous colitis Other and unspecified noninfectious gastroenteritis and colitis Anemia due to stage 3b chronic kidney disease (HCC) Hypothyroidism, unspecified type Cerebral microvascular disease Cerebrovascular disease, unspecified Essential hypertension Unspecified essential hypertension Need for vaccination Need for prophylactic vaccination and inoculation against unspecified single disease Decreased hearing of both ears Weight loss, unintentional Loss of weight 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 SVT (supraventricular tachycardia) (HCC) Other specified cardiac dysrhythmias Chronic diastolic (congestive) heart failure (HCC) Iron deficiency anemia, unspecified iron deficiency anemia type Sleep disturbance Sleep disturbance, unspecified Primary osteoarthritis of first carpometacarpal joint of left hand Primary localized osteoarthrosis, hand Pre-operative examination- Primary Preoperative examination, unspecified Primary osteoarthritis of first carpometacarpal joint of left hand Primary localized osteoarthrosis, hand Chronic diastolic (congestive) heart failure (HCC) Atherosclerosis of 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 Essential hypertension Unspecified essential hypertension SVT (supraventricular tachycardia) (HCC) Other specified cardiac dysrhythmias Collagenous colitis Other and unspecified noninfectious gastroenteritis and colitis Anemia due to stage 3b chronic kidney disease (HCC) Stage 3 chronic kidney disease, unspecified whether stage 3a or 3b CKD (HCC) Hypothyroidism, unspecified type Basal cell carcinoma, face Basal cell carcinoma of skin of other and unspecified parts of face Personal history of malignant neoplasm of breast Cerebral microvascular disease Cerebrovascular disease, unspecified Encephalopathy Encephalopathy, unspecified PERS HX OF IRRADIATION-face and neck Personal history of irradiation, presenting hazards to health SVT (supraventricular tachycardia) (HCC)- Primary Other specified cardiac dysrhythmias 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 disease, or chronic kidney disease (HCC) Unspecified hypertensive heart and kidney disease with heart failure and with chronic kidney disease stage I through stage IV, or unspecified Anemia due to stage 3b chronic kidney disease (HCC) Atherosclerosis of 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 Exertional dyspnea Other dyspnea and respiratory abnormality Sadness 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 Neoplasm of unspecified nature of digestive system Encounter for immunization Need for other specified prophylactic vaccination against single bacterial disease Chronic diastolic (congestive) heart failure (HCC) Stage 3a chronic kidney disease (HCC) 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 disease, or chronic kidney disease (HCC) Unspecified hypertensive heart and kidney disease with heart failure and with chronic kidney disease stage I through stage IV, or unspecified SVT (supraventricular tachycardia) (HCC) Other specified cardiac dysrhythmias Essential hypertension Unspecified essential hypertension Situational depression Adjustment disorder with depressed mood Anemia due to stage 3b chronic kidney disease (HCC)- Primary 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 disease, or chronic kidney disease (HCC) Unspecified hypertensive heart and kidney disease with heart failure and with chronic kidney disease stage I through stage IV, or unspecified [facility] Diagnosis Essential hypertension- Primary Unspecified essential hypertension Atherosclerosis of 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 Changes in vascular appearance of retina, bilateral Urinary calculus, unspecified Bcc L cheek 02/22 Basal cell carcinoma of skin of other and unspecified parts of face PERS HX OF IRRADIATION-face and neck Personal history of irradiation, presenting hazards to health CKD (chronic kidney disease) stage 3, GFR 30-59 ml/min (HCC) Chronic kidney disease, Stage III (moderate) Malignant neoplasm of lower-outer quadrant of right female breast (HCC) Malignant neoplasm of lower-outer quadrant of female breast Hypothyroidism, unspecified type Elevated blood uric acid level Other abnormal blood chemistry Localized edema Edema Chronic knee pain, unspecified laterality- Primary Primary osteoarthritis of right knee Primary localized osteoarthrosis, lower leg Primary osteoarthritis of right knee- Primary Primary localized osteoarthrosis, lower leg Medicare welcome exam- Primary Routine general medical examination at a health care facility Encephalopathy Encephalopathy, unspecified 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 disease, or chronic kidney disease (HCC) Unspecified hypertensive heart and kidney disease with heart failure and with chronic kidney disease stage I through stage IV, or unspecified Pleural effusion Unspecified pleural effusion Collagenous colitis Other and unspecified noninfectious gastroenteritis and colitis Anemia due to stage 3b chronic kidney disease (HCC) Hypothyroidism, unspecified type Cerebral microvascular disease Cerebrovascular disease, unspecified Essential hypertension Unspecified essential hypertension Need for vaccination Need for prophylactic vaccination and inoculation against unspecified single disease Decreased hearing of both ears Weight loss, unintentional Loss of weight 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 SVT (supraventricular tachycardia) (HCC) Other specified cardiac dysrhythmias Chronic diastolic (congestive) heart failure (HCC) Iron deficiency anemia, unspecified iron deficiency anemia type Sleep disturbance Sleep disturbance, unspecified Primary osteoarthritis of first carpometacarpal joint of left hand Primary localized osteoarthrosis, hand Pre-operative examination- Primary Preoperative examination, unspecified Primary osteoarthritis of first carpometacarpal joint of left hand Primary localized osteoarthrosis, hand Chronic diastolic (congestive) heart failure (HCC) Atherosclerosis of 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 Essential hypertension Unspecified essential hypertension SVT (supraventricular tachycardia) (HCC) Other specified cardiac dysrhythmias Collagenous colitis Other and unspecified noninfectious gastroenteritis and colitis Anemia due to stage 3b chronic kidney disease (HCC) Stage 3 chronic kidney disease, unspecified whether stage 3a or 3b CKD (HCC) Hypothyroidism, unspecified type Basal cell carcinoma, face Basal cell carcinoma of skin of other and unspecified parts of face Personal history of malignant neoplasm of breast Cerebral microvascular disease Cerebrovascular disease, unspecified Encephalopathy Encephalopathy, unspecified PERS HX OF IRRADIATION-face and neck Personal history of irradiation, presenting hazards to health SVT (supraventricular tachycardia) (HCC)- Primary Other specified cardiac dysrhythmias 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 disease, or chronic kidney disease (HCC) Unspecified hypertensive heart and kidney disease with heart failure and with chronic kidney disease stage I through stage IV, or unspecified Anemia due to stage 3b chronic kidney disease (HCC) Atherosclerosis of 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 Exertional dyspnea Other dyspnea and respiratory abnormality Sadness 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 Neoplasm of unspecified nature of digestive system Encounter for immunization Need for other specified prophylactic vaccination against single bacterial disease Chronic diastolic (congestive) heart failure (HCC) Stage 3a chronic kidney disease (HCC) 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 disease, or chronic kidney disease (HCC) Unspecified hypertensive heart and kidney disease with heart failure and with chronic kidney disease stage I through stage IV, or unspecified SVT (supraventricular tachycardia) (HCC) Other specified cardiac dysrhythmias Essential hypertension Unspecified essential hypertension Situational depression Adjustment disorder with depressed mood Atherosclerosis of 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- Primary Chronic diastolic (congestive) heart failure (HCC) Anemia due to stage 3b chronic kidney disease (HCC) Decreased hearing of both ears Medicare annual wellness visit, subsequent Routine general medical examination at a health care facility Epigastric pain Abdominal pain, epigastric Collagenous colitis Other and unspecified noninfectious gastroenteritis and colitis Pancreatic cyst (HCC) 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 Latest Ref Rng & Units 02/01/2025 06/24/2024 11/02/2023 BMP Glucose 74 - 99 mg/dL 102 100 82 BUN 7 - 21 mg/dL 43 30 31 Creatinine 0.58 - 0.96 mg/dL 1.38 1.34 1.42 Sodium 136 - 144 mmol/L 139 144 145 Potassium 3.7 - 5.1 mmol/L 4.7 4.6 4.7 Chloride 98 - 107 mmol/L 104 106 105 CO2 22 - 30 mmol/L 28 27 26 Anion Gap 8 - 15 mmol/L 7 11 14 Calcium 8.5 - 10.2 mg/dL 9.9 9.6 10.4 EGFR >=60 mL/min/1.73m 37 38 36 Kidney function has been stable. [facility] Diagnosis Essential hypertension- Primary Unspecified essential hypertension Atherosclerosis of 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 Changes in vascular appearance of retina, bilateral Urinary calculus, unspecified Bcc L cheek 02/22 Basal cell carcinoma of skin of other and unspecified parts of face PERS HX OF IRRADIATION-face and neck Personal history of irradiation, presenting hazards to health CKD (chronic kidney disease) stage 3, GFR 30-59 ml/min (HCC) Chronic kidney disease, Stage III (moderate) Malignant neoplasm of lower-outer quadrant of right female breast (HCC) Malignant neoplasm of lower-outer quadrant of female breast Hypothyroidism, unspecified type Elevated blood uric acid level Other abnormal blood chemistry Localized edema Edema Chronic knee pain, unspecified laterality- Primary Primary osteoarthritis of right knee Primary localized osteoarthrosis, lower leg Primary osteoarthritis of right knee- Primary Primary localized osteoarthrosis, lower leg Medicare welcome exam- Primary Routine general medical examination at a health care facility Encephalopathy Encephalopathy, unspecified 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 disease, or chronic kidney disease (HCC) Unspecified hypertensive heart and kidney disease with heart failure and with chronic kidney disease stage I through stage IV, or unspecified Pleural effusion Unspecified pleural effusion Collagenous colitis Other and unspecified noninfectious gastroenteritis and colitis Anemia due to stage 3b chronic kidney disease (HCC) Hypothyroidism, unspecified type Cerebral microvascular disease Cerebrovascular disease, unspecified Essential hypertension Unspecified essential hypertension Need for vaccination Need for prophylactic vaccination and inoculation against unspecified single disease Decreased hearing of both ears Weight loss, unintentional Loss of weight 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 SVT (supraventricular tachycardia) (HCC) Other specified cardiac dysrhythmias Chronic diastolic (congestive) heart failure (HCC) Iron deficiency anemia, unspecified iron deficiency anemia type Sleep disturbance Sleep disturbance, unspecified Primary osteoarthritis of first carpometacarpal joint of left hand Primary localized osteoarthrosis, hand Pre-operative examination- Primary Preoperative examination, unspecified Primary osteoarthritis of first carpometacarpal joint of left hand Primary localized osteoarthrosis, hand Chronic diastolic (congestive) heart failure (HCC) Atherosclerosis of 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 Essential hypertension Unspecified essential hypertension SVT (supraventricular tachycardia) (HCC) Other specified cardiac dysrhythmias Collagenous colitis Other and unspecified noninfectious gastroenteritis and colitis Anemia due to stage 3b chronic kidney disease (HCC) Stage 3 chronic kidney disease, unspecified whether stage 3a or 3b CKD (HCC) Hypothyroidism, unspecified type Basal cell carcinoma, face Basal cell carcinoma of skin of other and unspecified parts of face Personal history of malignant neoplasm of breast Cerebral microvascular disease Cerebrovascular disease, unspecified Encephalopathy Encephalopathy, unspecified PERS HX OF IRRADIATION-face and neck Personal history of irradiation, presenting hazards to health SVT (supraventricular tachycardia) (HCC)- Primary Other specified cardiac dysrhythmias 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 disease, or chronic kidney disease (HCC) Unspecified hypertensive heart and kidney disease with heart failure and with chronic kidney disease stage I through stage IV, or unspecified Anemia due to stage 3b chronic kidney disease (HCC) Atherosclerosis of 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 Exertional dyspnea Other dyspnea and respiratory abnormality Sadness 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 Neoplasm of unspecified nature of digestive system Encounter for immunization Need for other specified prophylactic vaccination against single bacterial disease Chronic diastolic (congestive) heart failure (HCC) Stage 3a chronic kidney disease (HCC) 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 disease, or chronic kidney disease (HCC) Unspecified hypertensive heart and kidney disease with heart failure and with chronic kidney disease stage I through stage IV, or unspecified SVT (supraventricular tachycardia) (HCC) Other specified cardiac dysrhythmias Essential hypertension Unspecified essential hypertension Situational depression Adjustment disorder with depressed mood Atherosclerosis of 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- Primary Chronic diastolic (congestive) heart failure (HCC) Anemia due to stage 3b chronic kidney disease (HCC) Decreased hearing of both ears Medicare annual wellness visit, subsequent Routine general medical examination at a health care facility Epigastric pain Abdominal pain, epigastric Collagenous colitis Other and unspecified noninfectious gastroenteritis and colitis Pancreatic cyst (HCC) 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 disease, or chronic kidney disease (HCC) Unspecified hypertensive heart and kidney disease with heart failure and with chronic kidney disease stage I through stage IV, or unspecified Essential hypertension Unspecified essential hypertension Chronic diastolic (congestive) heart failure (HCC)- Primary Encounter for screening for cardiovascular disorders Screening for other and unspecified cardiovascular conditions Angina pectoris Other and unspecified angina pectoris Stage 3b chronic kidney disease (HCC) documented in this encounter [facility] Discharge instructions Additional Instructions Please return for any worsening of your symptoms. Stay well-hydrated.[facility] Work Phone: Reason for referral (narrative)* Diagnostic Procedure Only (Routine) - Authorized Specialty Diagnoses / Procedures Referred By Tanya rodriguez Referred To Contact US IMAGING Diagnoses Urinary retention Procedures US PELVIS BLADDER US PELVIC NONOBSTETRIC IMAGE DCMTN LIMITED/F/U Susannah Clemente MD [address] [place] [address] Us Imaging Referral ID Status Reason Start Date Expiration Date Visits Requested Visits Authorized [id number] Authorized Auto-Generat ed Referral 2 10/31/2023 1 1 * Diagnostic Procedure Only (Routine) - Authorized Specialty Diagnoses / Procedures Referred By Contac t Referred To Contact US IMAGING Diagnoses Urinary retention Procedures US KIDNEY/BLADDER US RETROPERITONEAL REAL TIME W/[place] [address] [place] [address] Us Imaging Referral ID Status Reason Start Date Expiration Date Visits Requested Visits Authorized [id number] Authorized Auto-Generat ed Referral 2 10/31/2023 1 1 [facility] for referral (narrative)* Outpatient Procedure (Routine) - Authorized Specialty Diagnoses / Procedures Referred By Rubiaac t Referred To [facility] Diagnoses Chronic heart failure with preserved ejection fraction (HCC) Procedures ECHO ECHO TTHRC R-T 2D W/WOM-MODE COMPL SPEC&COLR D Le Orourke APRN.[employer] [address] [place] [address] [facility] [place] [place] [address] [address] Referral ID Status Reason Start Date Expiration Date Visits Requested Visits Authorized [id number] Authorized Auto-Generat ed Referral 04/02/2023 11/20/2023 1 1 [facility] for referral (narrative)* Diagnostic Procedure Only (Routine) - Pending Review Specialty Diagnoses / Procedures Referred By Tanya rodriguez Referred To Contact BR IMAGING Diagnoses Encounter for screening mammogram for breast cancer Procedures NICOLE SCREENING W MICHELLE SCREENING DIGITAL BREAST TOMOSYNTHESIS BI SCREENING MAMMOGRAPHY BI 2-VIEW BREAST INC CAD Alicia Hylton APRN.[employer] [address] [place] [address] [facility] [address] [place] [address] Referral ID Status Reason Start Date Expiration Date Visits Requested Visits Authorized [id number] Pending Review Auto-Generat ed Referral 01/05/2023 02/04/2024 1 1 [facility] for referral (narrative)* Diagnostic Procedure Only (Routine) - Pending Review Specialty Diagnoses / Procedures Referred By Tanya t Referred To Contact [facility]LECULAR & FUNCTIONAL IMAGING Diagnoses Medicare annual wellness visit, subsequent Epigastric pain Procedures NM HEPATOBILIARY W EF AND/OR RX HEPATOBIL SYST IMAG INC GB W/PHARMA INTERVENJ Susannah Clemente MD [address] [place] [address] [facility] [address] [place] [address] Referral ID Status Reason Start Date Expiration Date Visits Requested Visits Authorized [id number] Pending Review Auto-Generat ed Referral 07/05/2023 08/03/2024 1 1 * Consult, Test, Treat (Routine) - Authorized Specialty Diagnoses / Procedures Referred By Contac t Referred To Contact Diagnoses Medicare annual wellness visit, subsequent Decreased hearing of both ears Procedures HEARING TEST/AUDIOGRAM COMPRE AUDIOMETRY THRESHOLD EVAL SP ESTEBANIJ Susannah Clemente MD [address] [place] [address] [facility] [address] [place] [address] Referral ID Status Reason Start Date Expiration Date Visits Requested Visits Authorized [id number] Authorized Auto-Generat ed Referral 07/05/2023 10/03/2023 1 1 * Consult, Test, Treat (Routine) - Authorized Specialty Diagnoses / Procedures Referred By Contac t Referred To Contact [facility] [place] Diagnoses Medicare annual wellness visit, subsequent Thoracogenic scoliosis, unspecified spinal region Chronic thoracic back pain, unspecified back pain laterality Procedures CONSULT TO [facility] OFFICE/OUTPATIENT [facility] 60-74 MINUTES Susannah Clemente MD [address] [place] [address] Referral ID Status Reason Start Date Expiration Date Visits Requested Visits Authorized [id number] Authorized PCP Requested Referral 07/05/2023 07/04/2024 1 1 [facility] for referral (narrative)* Diagnostic Procedure Only (Routine) - Closed Specialty Diagnoses / Procedures Referred By Contac t Referred To Contact XR IMAGING Diagnoses Acute right-sided thoracic back pain Procedures XR THORACIC GENERAL 3V AP/LAT/SWIMMERS RADEX SPINE THORACIC 3 VIEWS Susannah Clemente MD [address] [place] [address] [place] [address] Referral ID Status Reason Start Date Expiration Date V isits Requested Visits Authorized [id number] Closed Auto-Generate d Referral 03/08/2023 04/06/2024 1 1 * Diagnostic Procedure Only (Routine) - Closed Specialty Diagnoses / Procedures Referred By Contac t Referred To Contact XR IMAGING Diagnoses Acute right-sided thoracic back pain Procedures XR RIBS/CHEST 3V AP RIB/OBLS/CXR RIGHT RADEX RIBS UNI W/POSTEROANT CH MINIMUM 3 VIEWS Susannah Clmeente MD [address] [place] [address] [place] [address] Referral ID Status Reason Start Date Expiration Date V isits Requested Visits Authorized [id number] Closed Auto-Generate d Referral 03/08/2023 04/06/2024 1 1 [facility] for referral (narrative)* Diagnostic Procedure Only (Routine) - Closed Specialty Diagnoses / Procedures Referred By Contac t Referred To Contact US IMAGING Diagnoses Epigastric abdominal tenderness without rebound tenderness Procedures US ABD RIGHT UPPER QUADRANT US ABDOMINAL REAL TIME W/IMAGE LIMITED Susannah Clemente MD [address] [place] [address] [place] [address] Referral ID Status Reason Start Date Expiration Date V isits Requested Visits Authorized [id number] Closed Auto-Generate d Referral 03/23/2023 04/21/2024 1 1 [facility] for referral (narrative)* Diagnostic Procedure Only (Routine) - Closed Specialty Diagnoses / Procedures Referred By Tanya t Referred To Contact [facility] Diagnoses Medicare annual wellness visit, subsequent Epigastric pain Procedures NM HEPATOBILIARY W EF AND/OR RX HEPATOBIL SYST IMAG INC GB W/PHARMA INTERVENJ Susannah Clemente MD [address] [place] [address] [facility] [address] [place] [address] Referral ID Status Reason Start Date Expiration Date V isits Requested Visits Authorized [id number] Closed Auto-Generate d Referral 07/05/2023 08/03/2024 1 1 [facility] for referral (narrative)* Diagnostic Procedure Only (Routine) - Closed Specialty Diagnoses / Procedures Referred By Tanya rodriguez Referred To Contact US IMAGING Diagnoses Urinary retention Procedures US KIDNEY/BLADDER US RETROPERITONEAL REAL TIME W/IMAGE COMPLETE Susannah Clemente MD [address] [place] [address] [place] [address] Referral ID Status Reason Start Date Expiration Date V isits Requested Visits Authorized [id number] Closed Auto-Generate d Referral 10/01/2022 10/31/2023 1 1 [facility] for referral (narrative)* Diagnostic Procedure Only (Routine) - Pending Review Specialty Diagnoses / Procedures Referred By Tanya t Referred To Contact BR IMAG[facility] Diagnoses Personal history of malignant neoplasm of breast Encounter for screening mammogram for malignant neoplasm of breast Procedures NICOLE SCREENING W MICHELLE SCREENING DIGITAL BREAST TOMOSYNTHESIS BI SCREENING MAMMOGRAPHY BI 2-VIEW BREAST INC Ruby Gaines PA-C [address] [place] [address] [facility] [address] [place] [address] Referral ID Status Reason Start Date Expiration Date Visits Requested Visits Authorized [id number] Pending Review Auto-Generat ed Referral 12/20/2023 01/18/2025 1 1 [facility] for referral (narrative)* Diagnostic Procedure Only (Routine) - Authorized Specialty Diagnoses / Procedures Referred By Tanya t Referred To Contact [facility] IM[facility] Diagnoses Encounter for screening mammogram for breast cancer Procedures NICOLE SCREENING W MICHELLE SCREENING DIGITAL BREAST TOMOSYNTHESIS BI SCREENING MAMMOGRAPHY BI 2-VIEW BREAST INC CAD Alicia Hylton APRN.[employer] [address] [place] [id number] [facility] [address] [place] [address] Referral ID Status Reason Start Date Expiration Date Visits Requested Visits Authorized [id number] Authorized Auto-Generat ed Referral 12/31/2023 01/29/2025 1 1 [facility] for referral (narrative)* Diagnostic Procedure Only (Routine) - Authorized Specialty Diagnoses / Procedures Referred By Tanya rodriguez Referred To Contact [facility] IM[facility] Diagnoses Abnormal mammogram Procedures US BREAST LTD RIGHT US BREAST UNI REAL TIME WITH IMAGE LIMITED Alicia Hylton APRN.[employer] [address] [place] [id number] [facility] [address] [place] [address] Referral ID Status Reason Start Date Expiration Date Visits Requested Visits Authorized [id number] Authorized Auto-Generat ed Referral 01/10/2024 02/08/2025 1 1 * Diagnostic Procedure Only (Routine) - Authorized Specialty Diagnoses / Procedures Referred By Tanya t Referred To Contact [facility] Diagnoses Abnormal mammogram Procedures NICOLE DIAGNOSTIC RIGHT DIAGNOSTIC MAMMOGRAPHY COMPUTER-AIDED DETCJ UNI Alicia Hylton APRN.[employer] [address] [place] [address] [facility] [address] [place] [address] Referral ID Status Reason Start Date Expiration Date Visits Requested Visits Authorized [id number] Authorized Auto-Generat ed Referral 01/10/2024 02/08/2025 1 1 [facility] for referral (narrative)* Outpatient Procedure (Routine) - Pending Review Specialty Diagnoses / Procedures Referred By Contac t Referred To Contact [facility] Diagnoses Chronic diastolic (congestive) heart failure (HCC) Procedures ECHO ECHO TTHRC R-T 2D W/WOM-MODE COMPL SPEC&COLR D Paul Bautista MD [address] [place] [address] [address] Referral ID Status Reason Start Date Expiration Date Visits Requested Visits Authorized [id number] Pending Review Auto-Generat ed Referral 12/30/2024 03/30/2025 1 1 * Transition of Care (Routine) - Ref Not Required Specialty Diagnoses / Procedures Referred By Contac t Referred To Contact [facility] Procedures CARDIOVASCULAR MEDICINE OP FOLLOW UP APPT ORDER Paul Bautista MD [address] [place] [address] [address] Referral ID Status Reason Start Date Expiration Date Visits Requested Visits Authorized [id number] Ref Not Required PCP Requested Referral 12/30/2024 03/30/2025 1 1 [facility] for referral (narrative)* Diagnostic Procedure Only (Routine) - Closed Specialty Diagnoses / Procedures Referred By Contjanet t Referred To Contact [facility] Diagnoses Encounter for screening mammogram for breast cancer Procedures NICOLE SCREENING W MICHELLE SCREENING DIGITAL BREAST TOMOSYNTHESIS BI SCREENING MAMMOGRAPHY BI 2-VIEW BREAST INC Alicia Ochoa APRN.CNP [address] [place] [address] [facility] [address] [place] [address] Referral ID Status Reason Start Date Expiration Date V isits Requested Visits Authorized [id number] Closed Auto-Generate d Referral 12/31/2023 01/29/2025 1 1 [facility] for referral (narrative)* Outpatient Procedure (Routine) - New Request Specialty Diagnoses / Procedures Referred By Contac t Referred To Contact [facility] Diagnoses Exertional dyspnea Procedures STRESS ECHO TREADMILL ECHO TTHRC R-T 2D W/WO M-MODE COMPLETE REST&ST Susannah Clemente MD [address] [place] [address] [facility] [place] [place] [place] [address] [place] [address] Referral ID Status Reason Start Date Expiration Date Visits Requested Visits Authorized [id number] New Request Auto-Generat ed Referral 07/03/2024 07/03/2025 1 1 * Outpatient Procedure (Routine) - New Request Specialty Diagnoses / Procedures Referred By Contac t Referred To Contact [facility] Diagnoses 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 disease, or chronic kidney disease (HCC) Exertional dyspnea Procedures ECG COMPLETE ECG ROUTINE ECG W/LEAST 12 LDS W/I&R Susannah Clemente MD [address] [place] [address] [facility] [place] [place] [facility] [place] [address] [place] [address] Referral ID Status Reason Start Date Expiration Date Visits Requested Visits Authorized [id number] New Request Auto-Generat ed Referral 07/03/2024 07/03/2025 1 1 [facility] for referral (narrative)* Diagnostic Procedure Only (Routine) - Closed Specialty Diagnoses / Procedures Referred By Tanya t Referred To Contact [facility] Diagnoses Encounter for screening mammogram for breast cancer Procedures NICOLE SCREENING W MICHELLE SCREENING DIGITAL BREAST TOMOSYNTHESIS BI SCREENING MAMMOGRAPHY BI 2-VIEW BREAST INC Alicia Ochoa APRN.CNP [address] [place] [address] [facility] [address] [place] [address] Referral ID Status Reason Start Date Expiration Date V isits Requested Visits Authorized [id number] Closed Auto-Generate d Referral 01/05/2023 02/04/2024 1 1 [facility] for referral (narrative)* Diagnostic Procedure Only (Routine) - Closed Specialty Diagnoses / Procedures Referred By Tanya rodriguez Referred To Contact [facility] Diagnoses Encounter for screening mammogram for malignant neoplasm of breast Procedures NICOLE SCREENING W MICHELLE SCREENING BREAST DGTL MICHELLE UNI/BILAT ADD ON SCREENING MAMMOGRAPHY BI 2-VIEW BREAST INC Ai Brar PA-C [address] [place] [address] [facility] Imaging [address] [place] [address] Referral ID Status Reason Start Date Expiration Date V isits Requested Visits Authorized [id number] Closed Auto-Generate d Referral 07/08/2021 08/07/2022 1 1 [facility] for referral (narrative)* Outpatient Procedure (Routine) - Authorized Specialty Diagnoses / Procedures Referred By Tanya rodriguez Referred To Contact [facility] Diagnoses Chronic diastolic (congestive) heart failure (HCC) Procedures ECHO ECHO TTHRC R-T 2D W/WOM-MODE COMPL SPEC&COLR D Paul Bautista MD [address] [place] [address] [facility] [place] [address] [place] [address] Referral ID Status Reason Start Date Expiration Date Visits Requested Visits Authorized [id number] Authorized Auto-Generat ed Referral 4 09/13/2025 1 1 [facility] for visit Narrative* Diagnostic Procedure Only (Routine) - Closed Specialty Diagnoses / Procedures Referred By Contac t Referred To Contact XR IMAGING Diagnoses Acute right-sided thoracic back pain Procedures XR RIBS/CHEST 3V AP RIB/OBLS/CXR RIGHT RADEX RIBS UNI W/POSTEROANT CH MINIMUM 3 VIEWS Susannah Clemente MD [address] [place] [address] [place] [address] Referral ID Status Reason Start Date Expiration Date V isits Requested Visits Authorized [id number] Closed Auto-Generate d Referral 03/08/2023 04/06/2024 1 1 [facility] Summary Purpose Family History No Family History Records Found Relationship Condition Age at Onset Recorded Date/T jasen Unknown Family History?Heart Disease, Hypertension Unknown January 12, 2018 4:21pm Family History?Heart Disease, Hypertension Unknown February 01, 2018 9:41pm Advance Directives No Advanced Directives Records FoundDocuments on File Type Date Recorded 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 Advance Directive(s) 12/16/2021 4:08 PM Date Activated Date Inactivated Comments 10/18/2019 5:45 PM 10/22/2019 5:44 PM Question Answer Comments Full Code Order Discussed With: Patient Documents on File Type Date Recorded 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 Advance Directive(s) 12/16/2021 4:08 PM Latest Code Status on File Code Status Date Activated Date Inactivated Comments Full Code 10/18/2019 5:45 PM 10/22/2019 5:44 PM Full Code Order Discussed With: Patient Documents on File Type Date Recorded 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 Advance Directive(s) 12/16/2021 4:08 PM Advance Directive(s) 11/26/2021 7:30 AM Advance Directive(s) 10/31/2021 9:14 AM Advance Directive(s) 11/23/2019 3:35 PM Advance Directive(s) 11/22/2019 10:56 AM Advance Directive(s) 02/04/2018 12:21 PM Documents on File Type Date Recorded 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 Advance Directive(s) 12/16/2021 4:08 PM Advance Directive(s) 11/26/2021 7:30 AM Advance Directive(s) 10/31/2021 9:14 AM Advance Directive(s) 11/23/2019 3:35 PM Advance Directive(s) 11/22/2019 10:56 AM Advance Directive(s) 02/04/2018 12:21 PM Latest Code Status on File Code Status Date Activated Date Inactivated Comments Full Code 10/18/2019 5:45 PM 10/22/2019 5:44 PM Latest Code Status on File Code Status Date Activated Date Inactivated Comments Full Code 10/18/2019 5:45 PM 10/22/2019 5:44 PM Question Answer Comments Full Code Order Discussed With: Patient Latest Code Status on File Code Status Date Activated Date Inactivated Comments Full Code 10/18/2019 5:45 PM 10/22/2019 5:44 PM Question Answer Comments Full Code Order Discussed With: Patient Advance Directive Response Recorded Date/ Time Living Will No November 06 11:58am Power of Transcribing Operators Supervisor No November 06, 2023 11:58am Date Activated Date Inactivated Comments 10/18/2019 5:45 PM 10/22/2019 5:44 PM Question Answer Comments Full Code Order Discussed With: Patient Hospital Course Note [facility] edical Records Department [address] [place] [address] Discharge Summary 10/18/19 1256 MR#: [id number] Acct: [id number] Name: ZENAIDA EVANS Rep #: [id number] : 1935 84 From: Miegl Sharma MD PCP: Susannah Clemente MD Status: ADM IN Y Location: ICU ICU02-1 Discharge Date and Diagnosis - Problem List Patient Problems: Active and Suspected Problems Stroke (Suspected) Hypertensive emergency (Acute) Date of Admission: 10/16/19 Date of Discharge: 10/18/19 - Primary Discharge Diagnosis Active and Suspected Problems Stroke (Suspected) Hypertensive emergency (Acute) - Secondary Discharge Diagnosis Chronic Problems HTN (hypertension) (Chronic) Hypothyroidism (Chronic) History of breast cancer (Chronic) R Breast CA s/p lumpectomy and radiation. Hyperlipidemia (Chronic) Microscopic colitis (Chronic) Vitamin D deficiency (Chronic) Allergic rhinitis (Chronic) Pain in right hip (Chronic) Hospital Course and Treatment Imaging Results: Clinical Impression(s) f (more content not included)... Reason for Referral Specialty Diagnoses / Procedures Referred By Contac t Referred To Contact Cardiology Diagnoses 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 disease, or chronic kidney disease (HCC) Procedures CONSULT TO CARDIOLOGY OFFICE/OUTPATIENT [facility] 60-74 MINUTES Susannah Clemente MD [address] [place] [address] Referral ID Status Reason Start Date Expiration Date Visits Requested Visits Authorized [id number] Authorized PCP Requested Referral 04/14/2022 04/14/2023 1 1 Specialty Diagnoses / Procedures Referred By Contac t Referred To Contact Diagnoses Rib pain on right side Thoracogenic scoliosis, unspecified spinal region Procedures CONSULT FOR ACUPUNCTURE OFFICE/OUTPATIENT [facility] 60-74 MINUTES Susannah Clemente MD [address] [place] [address] Referral ID Status Reason Start Date Expiration Date Visits Requested Visits Authorized [id number] Pending Review PCP Requested Referral 03/23/2023 03/22/2024 1 1 Specialty Diagnoses / Procedures Referred By Contac t Referred To Contact [facility] Diagnoses Epigastric abdominal tenderness without rebound tenderness Procedures US ABD RIGHT UPPER QUADRANT US ABDOMINAL REAL TIME W/IMAGE LIMITED Susannah Clemente MD [address] [place] [address] [facility] Referral ID Status Reason Start Date Expiration Date Visits Requested Visits Authorized [id number] Authorized Auto-Generat ed Referral 03/23/2023 04/21/2024 1 1 Specialty Diagnoses / Procedures Referred By Contac t Referred To Contact [facility] Diagnoses Chronic thoracic back pain, unspecified back pain laterality 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 Procedures CONSULT TO PHYSICAL THERAPY PHYSICAL THERAPY EVALUATION HIGH COMPLEX 45 MINS Migel Garcia PA-C [address] [place] [address] [facility] [address] [place] [id number] Referral ID Status Reason Start Date Expiration Date Visits Requested Visits Authorized [id number] Authorized PCP Requested Referral Auto-Generate d Referral 3 08/05/2024 99 99 Specialty Diagnoses / Procedures Referred By Contac t Referred To Contact Procedures HEARING TEST/AUDIOGRAM COMPRE AUDIOMETRY THRESHOLD EVAL SP Cristina Higgins, AUD [address] [place] [address] [facility] [address] [place] [address] Referral ID Status Reason Start Date Expiration Date Visits Requested Visits Authorized [id number] Pending Review Auto-Generat ed Referral 07/26/2023 07/26/2024 1 1 Specialty Diagnoses / Procedures Referred By Contac t Referred To Contact Procedures CARDIOVASCULAR MEDICINE OP FOLLOW UP APPT ORDER Paul Bautista MD [address] [place] [address] Referral ID Status Reason Start Date Expiration Date Visits Requested Visits Authorized [id number] Ref Not Required PCP Requested Referral 03/31/2024 09/29/2024 1 1 Specialty Diagnoses / Procedures Referred By Contac t Referred To Contact Psychology Diagnoses Situational depression Procedures CONSULT TO PSYCHOLOGY OFFICE/OUTPATIENT [facility] 60 MINUTES Susannah Clemente MD [address] [place] [address] Referral ID Status Reason Start Date Expiration Date Visits Requested Visits Authorized [id number] Pending Review PCP Requested Referral 01/04/2024 01/03/2025 1 1 Medications Administered Section Inactive Administered [...] 11:54 AM EST 0.5 mL Hand, Left Chief Complaint and Reason for Visit Chief Complaint cold sx, chest pain, nausea Additional Source Comments INFORMATION SOURCE (unrecogn ized section and content) DATE CREATED AUTHOR 04/07/2018 [facility] DATE CREATED AUTHOR AUTHOR'S ORGANIZ ATION 04/07/2018 [facility] DATE CREATED AUTHOR AUTHOR'S ORGANIZ ATION 07/10/2020 [facility] DATE CREATED AUTHOR AUTHOR'S ORGANIZ ATION 10/04/2020 [facility] DATE CREATED AUTHOR AUTHOR'S ORGANIZ ATION 02/05/2022 [facility] DATE CREATED AUTHOR AUTHOR'S ORGANIZ ATION 04/05/2025 [facility] Source Comments (unrecognize d section and content) In the event this informatio n is protected by the Federal Confidentiality of Alcohol and Drug Abuse Patient Records regulations: The Federal rules restrict any use of the information to criminally investigate or prosecute any alcohol or drug abuse patient.[facility] the event this information is protected by the Federal Confidentiality of Alcohol and Drug Abuse Patient Records regulations: The Federal rules restrict any use of the information to criminally investigate or prosecute any alcohol or drug abuse patient.[facility] CenterIn the event this information is protected by the Federal Confidentiality of Alcohol and Drug Abuse Patient Records regulations: The Federal rules restrict any use of the information to criminally investigate or prosecute any alcohol or drug abuse patient.[facility] the event this information is protected by the Federal Confidentiality of Alcohol and Drug Abuse Patient Records regulations: The Federal rules restrict any use of the information to criminally investigate or prosecute any alcohol or drug abuse patient.[facility] CenterIn the event this information is protected by the Federal Confidentiality of Alcohol and Drug Abuse Patient Records regulations: The Federal rules restrict any use of the information to criminally investigate or prosecute any alcohol or drug abuse patient.[facility] CenterIn the event this information is protected by the Federal Confidentiality of Alcohol and Drug Abuse Patient Records regulations: The Federal rules restrict any use of the information to criminally investigate or prosecute any alcohol or drug abuse patient.[facility] CenterIn the event this information is protected by the Federal Confidentiality of Alcohol and Drug Abuse Patient Records regulations: The Federal rules restrict any use of the information to criminally investigate or prosecute any alcohol or drug abuse patient.[facility] CenterIn the event this information is protected by the Federal Confidentiality of Alcohol and Drug Abuse Patient Records regulations: The Federal rules restrict any use of the information to criminally investigate or prosecute any alcohol or drug abuse patient.[facility] CenterIn the event this information is protected by the Federal Confidentiality of Alcohol and Drug Abuse Patient Records regulations: The Federal rules restrict any use of the information to criminally investigate or prosecute any alcohol or drug abuse patient.[facility] CenterIn the event this information is protected by the Federal Confidentiality of Alcohol and Drug Abuse Patient Records regulations: The Federal rules restrict any use of the information to criminally investigate or prosecute any alcohol or drug abuse patient.[facility] CenterIn the event this information is protected by the Federal Confidentiality of Alcohol and Drug Abuse Patient Records regulations: The Federal rules restrict any use of the information to criminally investigate or prosecute any alcohol or drug abuse patient.[facility] CenterIn the event this information is protected by the Federal Confidentiality of Alcohol and Drug Abuse Patient Records regulations: The Federal rules restrict any use of the information to criminally investigate or prosecute any alcohol or drug abuse patient.[facility] CenterIn the event this information is protected by the Federal Confidentiality of Alcohol and Drug Abuse Patient Records regulations: The Federal rules restrict any use of the information to criminally investigate or prosecute any alcohol or drug abuse patient.[facility] CenterIn the event this information is protected by the Federal Confidentiality of Alcohol and Drug Abuse Patient Records regulations: The Federal rules restrict any use of the information to criminally investigate or prosecute any alcohol or drug abuse patient.[facility] CenterIn the event this information is protected by the Federal Confidentiality of Alcohol and Drug Abuse Patient Records regulations: The Federal rules restrict any use of the information to criminally investigate or prosecute any alcohol or drug abuse patient.[facility] CenterIn the event this information is protected by the Federal Confidentiality of Alcohol and Drug Abuse Patient Records regulations: The Federal rules restrict any use of the information to criminally investigate or prosecute any alcohol or drug abuse patient.[facility] CenterIn the event this information is protected by the Federal Confidentiality of Alcohol and Drug Abuse Patient Records regulations: The Federal rules restrict any use of the information to criminally investigate or prosecute any alcohol or drug abuse patient.[facility] CenterIn the event this information is protected by the Federal Confidentiality of Alcohol and Drug Abuse Patient Records regulations: The Federal rules restrict any use of the information to criminally investigate or prosecute any alcohol or drug abuse patient.[facility] CenterIn the event this information is protected by the Federal Confidentiality of Alcohol and Drug Abuse Patient Records regulations: The Federal rules restrict any use of the information to criminally investigate or prosecute any alcohol or drug abuse patient.[facility] CenterIn the event this information is protected by the Federal Confidentiality of Alcohol and Drug Abuse Patient Records regulations: The Federal rules restrict any use of the information to criminally investigate or prosecute any alcohol or drug abuse patient.[facility] CenterIn the event this information is protected by the Federal Confidentiality of Alcohol and Drug Abuse Patient Records regulations: The Federal rules restrict any use of the information to criminally investigate or prosecute any alcohol or drug abuse patient.[facility] CenterIn the event this information is protected by the Federal Confidentiality of Alcohol and Drug Abuse Patient Records regulations: The Federal rules restrict any use of the information to criminally investigate or prosecute any alcohol or drug abuse patient.[facility] CenterIn the event this information is protected by the Federal Confidentiality of Alcohol and Drug Abuse Patient Records regulations: The Federal rules restrict any use of the information to criminally investigate or prosecute any alcohol or drug abuse patient.[facility] CenterIn the event this information is protected by the Federal Confidentiality of Alcohol and Drug Abuse Patient Records regulations: The Federal rules restrict any use of the information to criminally investigate or prosecute any alcohol or drug abuse patient.[facility] CenterIn the event this information is protected by the Federal Confidentiality of Alcohol and Drug Abuse Patient Records regulations: The Federal rules restrict any use of the information to criminally investigate or prosecute any alcohol or drug abuse patient.[facility] CenterIn the event this information is protected by the Federal Confidentiality of Alcohol and Drug Abuse Patient Records regulations: The Federal rules restrict any use of the information to criminally investigate or prosecute any alcohol or drug abuse patient.[facility] CenterIn the event this information is protected by the Federal Confidentiality of Alcohol and Drug Abuse Patient Records regulations: The Federal rules restrict any use of the information to criminally investigate or prosecute any alcohol or drug abuse patient.[facility] CenterIn the event this information is protected by the Federal Confidentiality of Alcohol and Drug Abuse Patient Records regulations: The Federal rules restrict any use of the information to criminally investigate or prosecute any alcohol or drug abuse patient.[facility] CenterIn the event this information is protected by the Federal Confidentiality of Alcohol and Drug Abuse Patient Records regulations: The Federal rules restrict any use of the information to criminally investigate or prosecute any alcohol or drug abuse patient.[facility] CenterIn the event this information is protected by the Federal Confidentiality of Alcohol and Drug Abuse Patient Records regulations: The Federal rules restrict any use of the information to criminally investigate or prosecute any alcohol or drug abuse patient.[facility] CenterIn the event this information is protected by the Federal Confidentiality of Alcohol and Drug Abuse Patient Records regulations: The Federal rules restrict any use of the information to criminally investigate or prosecute any alcohol or drug abuse patient.[facility] CenterIn the event this information is protected by the Federal Confidentiality of Alcohol and Drug Abuse Patient Records regulations: The Federal rules restrict any use of the information to criminally investigate or prosecute any alcohol or drug abuse patient.[facility] CenterIn the event this information is protected by the Federal Confidentiality of Alcohol and Drug Abuse Patient Records regulations: The Federal rules restrict any use of the information to criminally investigate or prosecute any alcohol or drug abuse patient.[facility] CenterIn the event this information is protected by the Federal Confidentiality of Alcohol and Drug Abuse Patient Records regulations: The Federal rules restrict any use of the information to criminally investigate or prosecute any alcohol or drug abuse patient.[facility] CenterIn the event this information is protected by the Federal Confidentiality of Alcohol and Drug Abuse Patient Records regulations: The Federal rules restrict any use of the information to criminally investigate or prosecute any alcohol or drug abuse patient.[facility] CenterIn the event this information is protected by the Federal Confidentiality of Alcohol and Drug Abuse Patient Records regulations: The Federal rules restrict any use of the information to criminally investigate or prosecute any alcohol or drug abuse patient.[facility] CenterIn the event this information is protected by the Federal Confidentiality of Alcohol and Drug Abuse Patient Records regulations: The Federal rules restrict any use of the information to criminally investigate or prosecute any alcohol or drug abuse patient.[facility] CenterIn the event this information is protected by the Federal Confidentiality of Alcohol and Drug Abuse Patient Records regulations: The Federal rules restrict any use of the information to criminally investigate or prosecute any alcohol or drug abuse patient.[facility] CenterIn the event this information is protected by the Federal Confidentiality of Alcohol and Drug Abuse Patient Records regulations: The Federal rules restrict any use of the information to criminally investigate or prosecute any alcohol or drug abuse patient.[facility] CenterIn the event this information is protected by the Federal Confidentiality of Alcohol and Drug Abuse Patient Records regulations: The Federal rules restrict any use of the information to criminally investigate or prosecute any alcohol or drug abuse patient.[facility] CenterIn the event this information is protected by the Federal Confidentiality of Alcohol and Drug Abuse Patient Records regulations: The Federal rules restrict any use of the information to criminally investigate or prosecute any alcohol or drug abuse patient.[facility] CenterIn the event this information is protected by the Federal Confidentiality of Alcohol and Drug Abuse Patient Records regulations: The Federal rules restrict any use of the information to criminally investigate or prosecute any alcohol or drug abuse patient.[facility] CenterIn the event this information is protected by the Federal Confidentiality of Alcohol and Drug Abuse Patient Records regulations: The Federal rules restrict any use of the information to criminally investigate or prosecute any alcohol or drug abuse patient.[facility] CenterIn the event this information is protected by the Federal Confidentiality of Alcohol and Drug Abuse Patient Records regulations: The Federal rules restrict any use of the information to criminally investigate or prosecute any alcohol or drug abuse patient.[facility] CenterIn the event this information is protected by the Federal Confidentiality of Alcohol and Drug Abuse Patient Records regulations: The Federal rules restrict any use of the information to criminally investigate or prosecute any alcohol or drug abuse patient.[facility] CenterIn the event this information is protected by the Federal Confidentiality of Alcohol and Drug Abuse Patient Records regulations: The Federal rules restrict any use of the information to criminally investigate or prosecute any alcohol or drug abuse patient.[facility] CenterIn the event this information is protected by the Federal Confidentiality of Alcohol and Drug Abuse Patient Records regulations: The Federal rules restrict any use of the information to criminally investigate or prosecute any alcohol or drug abuse patient.[facility] CenterIn the event this information is protected by the Federal Confidentiality of Alcohol and Drug Abuse Patient Records regulations: The Federal rules restrict any use of the information to criminally investigate or prosecute any alcohol or drug abuse patient.[facility] CenterIn the event this information is protected by the Federal Confidentiality of Alcohol and Drug Abuse Patient Records regulations: The Federal rules restrict any use of the information to criminally investigate or prosecute any alcohol or drug abuse patient.[facility] CenterIn the event this information is protected by the Federal Confidentiality of Alcohol and Drug Abuse Patient Records regulations: The Federal rules restrict any use of the information to criminally investigate or prosecute any alcohol or drug abuse patient.[facility] CenterIn the event this information is protected by the Federal Confidentiality of Alcohol and Drug Abuse Patient Records regulations: The Federal rules restrict any use of the information to criminally investigate or prosecute any alcohol or drug abuse patient.[facility] CenterIn the event this information is protected by the Federal Confidentiality of Alcohol and Drug Abuse Patient Records regulations: The Federal rules restrict any use of the information to criminally investigate or prosecute any alcohol or drug abuse patient.[facility] CenterIn the event this information is protected by the Federal Confidentiality of Alcohol and Drug Abuse Patient Records regulations: The Federal rules restrict any use of the information to criminally investigate or prosecute any alcohol or drug abuse patient.[facility] the event this information is protected by the Federal Confidentiality of Alcohol and Drug Abuse Patient Records regulations: The Federal rules restrict any use of the information to criminally investigate or prosecute any alcohol or drug abuse patient.[facility] CenterIn the event this information is protected by the Federal Confidentiality of Alcohol and Drug Abuse Patient Records regulations: The Federal rules restrict any use of the information to criminally investigate or prosecute any alcohol or drug abuse patient.[facility] CenterIn the event this information is protected by the Federal Confidentiality of Alcohol and Drug Abuse Patient Records regulations: The Federal rules restrict any use of the information to criminally investigate or prosecute any alcohol or drug abuse patient.[facility] CenterIn the event this information is protected by the Federal Confidentiality of Alcohol and Drug Abuse Patient Records regulations: The Federal rules restrict any use of the information to criminally investigate or prosecute any alcohol or drug abuse patient.[facility] CenterIn the event this information is protected by the Federal Confidentiality of Alcohol and Drug Abuse Patient Records regulations: The Federal rules restrict any use of the information to criminally investigate or prosecute any alcohol or drug abuse patient.[facility] CenterIn the event this information is protected by the Federal Confidentiality of Alcohol and Drug Abuse Patient Records regulations: The Federal rules restrict any use of the information to criminally investigate or prosecute any alcohol or drug abuse patient.[facility] CenterIn the event this information is protected by the Federal Confidentiality of Alcohol and Drug Abuse Patient Records regulations: The Federal rules restrict any use of the information to criminally investigate or prosecute any alcohol or drug abuse patient.[facility] CenterIn the event this information is protected by the Federal Confidentiality of Alcohol and Drug Abuse Patient Records regulations: The Federal rules restrict any use of the information to criminally investigate or prosecute any alcohol or drug abuse patient.[facility] CenterIn the event this information is protected by the Federal Confidentiality of Alcohol and Drug Abuse Patient Records regulations: The Federal rules restrict any use of the information to criminally investigate or prosecute any alcohol or drug abuse patient.[facility] CenterIn the event this information is protected by the Federal Confidentiality of Alcohol and Drug Abuse Patient Records regulations: The Federal rules restrict any use of the information to criminally investigate or prosecute any alcohol or drug abuse patient.[facility] CenterIn the event this information is protected by the Federal Confidentiality of Alcohol and Drug Abuse Patient Records regulations: The Federal rules restrict any use of the information to criminally investigate or prosecute any alcohol or drug abuse patient.[facility] CenterIn the event this information is protected by the Federal Confidentiality of Alcohol and Drug Abuse Patient Records regulations: The Federal rules restrict any use of the information to criminally investigate or prosecute any alcohol or drug abuse patient.[facility] CenterIn the event this information is protected by the Federal Confidentiality of Alcohol and Drug Abuse Patient Records regulations: The Federal rules restrict any use of the information to criminally investigate or prosecute any alcohol or drug abuse patient.[facility] CenterIn the event this information is protected by the Federal Confidentiality of Alcohol and Drug Abuse Patient Records regulations: The Federal rules restrict any use of the information to criminally investigate or prosecute any alcohol or drug abuse patient.[facility] CenterIn the event this information is protected by the Federal Confidentiality of Alcohol and Drug Abuse Patient Records regulations: The Federal rules restrict any use of the information to criminally investigate or prosecute any alcohol or drug abuse patient.[facility] CenterIn the event this information is protected by the Federal Confidentiality of Alcohol and Drug Abuse Patient Records regulations: The Federal rules restrict any use of the information to criminally investigate or prosecute any alcohol or drug abuse patient.[facility] CenterIn the event this information is protected by the Federal Confidentiality of Alcohol and Drug Abuse Patient Records regulations: The Federal rules restrict any use of the information to criminally investigate or prosecute any alcohol or drug abuse patient.[facility] CenterIn the event this information is protected by the Federal Confidentiality of Alcohol and Drug Abuse Patient Records regulations: The Federal rules restrict any use of the information to criminally investigate or prosecute any alcohol or drug abuse patient.[facility] CenterIn the event this information is protected by the Federal Confidentiality of Alcohol and Drug Abuse Patient Records regulations: The Federal rules restrict any use of the information to criminally investigate or prosecute any alcohol or drug abuse patient.[facility] CenterIn the event this information is protected by the Federal Confidentiality of Alcohol and Drug Abuse Patient Records regulations: The Federal rules restrict any use of the information to criminally investigate or prosecute any alcohol or drug abuse patient.[facility] CenterIn the event this information is protected by the Federal Confidentiality of Alcohol and Drug Abuse Patient Records regulations: The Federal rules restrict any use of the information to criminally investigate or prosecute any alcohol or drug abuse patient.[facility] CenterIn the event this information is protected by the Federal Confidentiality of Alcohol and Drug Abuse Patient Records regulations: The Federal rules restrict any use of the information to criminally investigate or prosecute any alcohol or drug abuse patient.[facility] CenterIn the event this information is protected by the Federal Confidentiality of Alcohol and Drug Abuse Patient Records regulations: The Federal rules restrict any use of the information to criminally investigate or prosecute any alcohol or drug abuse patient.[facility] CenterIn the event this information is protected by the Federal Confidentiality of Alcohol and Drug Abuse Patient Records regulations: The Federal rules restrict any use of the information to criminally investigate or prosecute any alcohol or drug abuse patient.[facility] CenterIn the event this information is protected by the Federal Confidentiality of Alcohol and Drug Abuse Patient Records regulations: The Federal rules restrict any use of the information to criminally investigate or prosecute any alcohol or drug abuse patient.[facility] CenterIn the event this information is protected by the Federal Confidentiality of Alcohol and Drug Abuse Patient Records regulations: The Federal rules restrict any use of the information to criminally investigate or prosecute any alcohol or drug abuse patient.[facility] CenterIn the event this information is protected by the Federal Confidentiality of Alcohol and Drug Abuse Patient Records regulations: The Federal rules restrict any use of the information to criminally investigate or prosecute any alcohol or drug abuse patient.[facility] CenterIn the event this information is protected by the Federal Confidentiality of Alcohol and Drug Abuse Patient Records regulations: The Federal rules restrict any use of the information to criminally investigate or prosecute any alcohol or drug abuse patient.[facility] CenterIn the event this information is protected by the Federal Confidentiality of Alcohol and Drug Abuse Patient Records regulations: The Federal rules restrict any use of the information to criminally investigate or prosecute any alcohol or drug abuse patient.[facility] CenterIn the event this information is protected by the Federal Confidentiality of Alcohol and Drug Abuse Patient Records regulations: The Federal rules restrict any use of the information to criminally investigate or prosecute any alcohol or drug abuse patient.[facility] CenterIn the event this information is protected by the Federal Confidentiality of Alcohol and Drug Abuse Patient Records regulations: The Federal rules restrict any use of the information to criminally investigate or prosecute any alcohol or drug abuse patient.[facility] CenterIn the event this information is protected by the Federal Confidentiality of Alcohol and Drug Abuse Patient Records regulations: The Federal rules restrict any use of the information to criminally investigate or prosecute any alcohol or drug abuse patient.[facility] CenterIn the event this information is protected by the Federal Confidentiality of Alcohol and Drug Abuse Patient Records regulations: The Federal rules restrict any use of the information to criminally investigate or prosecute any alcohol or drug abuse patient.[facility] CenterIn the event this information is protected by the Federal Confidentiality of Alcohol and Drug Abuse Patient Records regulations: The Federal rules restrict any use of the information to criminally investigate or prosecute any alcohol or drug abuse patient.[facility] CenterIn the event this information is protected by the Federal Confidentiality of Alcohol and Drug Abuse Patient Records regulations: The Federal rules restrict any use of the information to criminally investigate or prosecute any alcohol or drug abuse patient.[facility] CenterIn the event this information is protected by the Federal Confidentiality of Alcohol and Drug Abuse Patient Records regulations: The Federal rules restrict any use of the information to criminally investigate or prosecute any alcohol or drug abuse patient.[facility] CenterIn the event this information is protected by the Federal Confidentiality of Alcohol and Drug Abuse Patient Records regulations: The Federal rules restrict any use of the information to criminally investigate or prosecute any alcohol or drug abuse patient.[facility] CenterIn the event this information is protected by the Federal Confidentiality of Alcohol and Drug Abuse Patient Records regulations: The Federal rules restrict any use of the information to criminally investigate or prosecute any alcohol or drug abuse patient.[facility] CenterIn the event this information is protected by the Federal Confidentiality of Alcohol and Drug Abuse Patient Records regulations: The Federal rules restrict any use of the information to criminally investigate or prosecute any alcohol or drug abuse patient.[facility] CenterIn the event this information is protected by the Federal Confidentiality of Alcohol and Drug Abuse Patient Records regulations: The Federal rules restrict any use of the information to criminally investigate or prosecute any alcohol or drug abuse patient.[facility] CenterIn the event this information is protected by the Federal Confidentiality of Alcohol and Drug Abuse Patient Records regulations: The Federal rules restrict any use of the information to criminally investigate or prosecute any alcohol or drug abuse patient.[facility] CenterIn the event this information is protected by the Federal Confidentiality of Alcohol and Drug Abuse Patient Records regulations: The Federal rules restrict any use of the information to criminally investigate or prosecute any alcohol or drug abuse patient.[facility] CenterIn the event this information is protected by the Federal Confidentiality of Alcohol and Drug Abuse Patient Records regulations: The Federal rules restrict any use of the information to criminally investigate or prosecute any alcohol or drug abuse patient.[facility] CenterIn the event this information is protected by the Federal Confidentiality of Alcohol and Drug Abuse Patient Records regulations: The Federal rules restrict any use of the information to criminally investigate or prosecute any alcohol or drug abuse patient.[facility] CenterIn the event this information is protected by the Federal Confidentiality of Alcohol and Drug Abuse Patient Records regulations: The Federal rules restrict any use of the information to criminally investigate or prosecute any alcohol or drug abuse patient.[facility] CenterIn the event this information is protected by the Federal Confidentiality of Alcohol and Drug Abuse Patient Records regulations: The Federal rules restrict any use of the information to criminally investigate or prosecute any alcohol or drug abuse patient.[facility] CenterIn the event this information is protected by the Federal Confidentiality of Alcohol and Drug Abuse Patient Records regulations: The Federal rules restrict any use of the information to criminally investigate or prosecute any alcohol or drug abuse patient.[facility] CenterIn the event this information is protected by the Federal Confidentiality of Alcohol and Drug Abuse Patient Records regulations: The Federal rules restrict any use of the information to criminally investigate or prosecute any alcohol or drug abuse patient.[facility] CenterIn the event this information is protected by the Federal Confidentiality of Alcohol and Drug Abuse Patient Records regulations: The Federal rules restrict any use of the information to criminally investigate or prosecute any alcohol or drug abuse patient.[facility] CenterIn the event this information is protected by the Federal Confidentiality of Alcohol and Drug Abuse Patient Records regulations: The Federal rules restrict any use of the information to criminally investigate or prosecute any alcohol or drug abuse patient.[facility] CenterIn the event this information is protected by the Federal Confidentiality of Alcohol and Drug Abuse Patient Records regulations: The Federal rules restrict any use of the information to criminally investigate or prosecute any alcohol or drug abuse patient.[facility] Reason for Visit (unrecogniz ed section and content) Reason Comments Follow Up Specialty Diagnoses / Procedures Referred By Contac t Referred To Contact [facility] Diagnoses Chronic diastolic (congestive) heart failure (HCC) Procedures ECHO ECHO TTHRC R-T 2D W/WOM-MODE COMPL SPEC[place] [address] [place] [id number] Phone: tel: fax: [facility] [address] [address] Referral ID Status Reason Start Date Expiration Date V isits Requested Visits Authorized [id number] Closed Auto-Generate d Referral 09/13/2024 09/13/2025 1 1 Reason Comments Physical Therapy Specialty Diagnoses / Procedures Referred By Contac t Referred To Contact [facility] Diagnoses Chronic thoracic back pain, unspecified back pain laterality 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 Procedures CONSULT TO PHYSICAL THERAPY PHYSICAL THERAPY EVALUATION HIGH COMPLEX 45 MINS Migel Garcia PA-C [address] [place] [address] [facility] [address] [place] [id number] Referral ID Status Reason Start Date Expiration Date Visits Requested Visits Authorized [id number] Authorized PCP Requested Referral Auto-Generate d Referral 08/05/2024 99 99 Reason Comments Occupational Therapy Specialty Diagnoses / Procedures Referred By Contac t Referred To Contact [facility] Diagnoses Primary osteoarthritis of first carpometacarpal joint of left hand Procedures CONSULT TO MANAGER ANDROID OCCUPATIONAL THERAPY EVAL HIGH COMPLEX 60 MINS Joni Lew PA-C [address] [place] [address] [facility] [address] [place] [address] Referral ID Status Reason Start Date Expiration Date Visits Requested Visits Authorized [id number] Authorized PCP Requested Referral Auto-Generate d Referral 12/09/2021 12/09/2022 99 99 Reason Onset Date Comments Occupational Therapy No Show 01/27/2022 No show Reason Comments OT Progress Note Reason Comments Results Reason Comments Follow Up Reason Comments New Patient Anemia Specialty Diagnoses / Procedures Referred By Contac t Referred To Contact Hematology Diagnoses Anemia, unspecified type Procedures CONSULT TO HEMATOLOGY OFFICE/OUTPATIENT [facility] 60-74 MINUTES Susannah Clemente MD [address] [place] [address] Referral ID Status Reason Start Date Expiration Date V isits Requested Visits Authorized [id number] Closed PCP Requested Referral 02/19/2022 05/20/2022 1 1 Reason Comments Hair Loss Reason Comments Consult Specialty Diagnoses / Procedures Referred By Contac t Referred To Contact Cardiology Diagnoses 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 disease, or chronic kidney disease (HCC) Procedures CONSULT TO CARDIOLOGY OFFICE/OUTPATIENT [facility] 60-74 MINUTES Susannah Clemente MD [address] [place] [address] Referral ID Status Reason Start Date Expiration Date V isits Requested Visits Authorized [id number] Closed PCP Requested Referral 04/14/2022 04/14/2023 1 1 Reason Comments Follow Up Reason Onset Date Comments Refill Request 08/06/2022 Reason Comments 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 - Other Reason Comments Established Patient Reason Comments UTI Pelvic pain, pain wi [...] PHYSICAL THERAPY EVALUATION HIGH COMPLEX 45 MINS Susannah Clemente MD [address] [place] [address] [facility] [address] [place] [address] Referral ID Status Reason Start Date Expiration Date Visits Requested Visits Authorized [id number] Authorized PCP Requested Referral Auto-Generate d Referral 03/08/2023 03/07/2024 99 99 Reason Comments Back Pain (Upper Back) Reason Comments Medicare Wellness Exam Reason Comments New Patient Low Back Pain Specialty Diagnoses / Procedures Referred By Contac t Referred To Contact [facility] Diagnoses Medicare annual wellness visit, subsequent Thoracogenic scoliosis, unspecified spinal region Chronic thoracic back pain, unspecified back pain laterality Procedures CONSULT TO [facility] OFFICE/OUTPATIENT [facility] 60-74 MINUTES Susannah Clemente MD [address] [place] [address] Referral ID Status Reason Start Date Expiration Date V isits Requested Visits Authorized [id number] Closed PCP Requested Referral 07/05/2023 07/04/2024 1 1 Specialty Diagnoses / Procedures Referred By Contac t Referred To Contact Diagnoses Medicare annual wellness visit, subsequent Decreased hearing of both ears Procedures HEARING TEST/AUDIOGRAM COMPRE AUDIOMETRY THRESHOLD EVAL SP RECOGNIJ Susannah Clemente MD [address] [place] [address] [facility] [address] [place] [address] Referral ID Status Reason Start Date Expiration Date V isits Requested Visits Authorized [id number] Closed Auto-Generate d Referral 07/05/2023 10/03/2023 1 1 Reason Comments Refill Request Reason Comments Radiology US Specialty Diagnoses / Procedures Referred By Contac t Referred To Contact [facility] Diagnoses Epigastric abdominal tenderness without rebound tenderness Procedures US ABD RIGHT UPPER QUADRANT US ABDOMINAL REAL TIME W/[place] [address] [place] [address] [facility] [place] [address] Referral ID Status Reason Start Date Expiration Date V isits Requested Visits Authorized [id number] Closed Auto-Generate d Referral 03/23/2023 04/21/2024 1 1 Reason Comments Radiology NM Specialty Diagnoses / Procedures Referred By Contac t Referred To Contact [facility] Diagnoses Medicare annual wellness visit, subsequent Epigastric pain Procedures NM HEPATOBILIARY W EF AND/OR RX HEPATOBIL SYST IMAG INC GB W/PHARMA INTERVENJ Susannah Clemente MD [address] [place] [address] [facility] [address] [place] [address] Referral ID Status Reason Start Date Expiration Date V isits Requested Visits Authorized [id number] Closed Auto-Generate d Referral 07/05/2023 08/03/2024 1 1 Specialty Diagnoses / Procedures Referred By Contac t Referred To Contact [facility] Diagnoses Urinary retention Procedures US PELVIS BLADDER US PELVIC NONOBSTETRIC IMAGE DCMTN LIMITED/F/U Susannah Clemente MD [address] [place] [address] [facility] [place] [address] Referral ID Status Reason Start Date Expiration Date V isits Requested Visits Authorized [id number] Closed Auto-Generate d Referral 10/01/2022 10/31/2023 1 1 Reason Comments PT Eval Reason Onset Date Comments Population Health Navigation Outreach 09/02/2023 [id number] Reason Comments CHF Reason Onset Date Comments Refill Request 10/07/2023 Clonidine and [place] betalol Reason Comments Established Patient Annual breast exam w ith mammogram; DXA 08/04/23; no breast concerns at this time Reason Comments Rx Refills Reason Comments Established Patient Epigastric Abdominal tenderness Reason Onset Date Comments Refill Request 03/13/2024 Reason Onset Date Comments Refill Request 05/14/2024 Reason Onset Date Comments Refill Request 05/15/2024 Reason Comments Derm Problem Bilat arms possible bug bites, Left inner elbow area is swelling with redness warmth, itching and pain, x1 week Reason Onset Date Comments burning and pressure with urination 06/26/2024 Reason Comments Urinary Frequency burning with urinati on x 1 day, took azo Reason Comments Radiology Mammogram Specialty Diagnoses / Procedures Referred By Rubiaac t Referred To Contact [facility] Diagnoses Encounter for screening mammogram for breast cancer Procedures NICOLE SCREENING W MICHELLE SCREENING DIGITAL BREAST TOMOSYNTHESIS BI SCREENING MAMMOGRAPHY BI 2-VIEW BREAST INC CAD Alicia Hylton, MANAGER PROJECT.[employer] ASSEMBLER [address] [place] [address] [facility] [address] [place] [address] Referral ID Status Reason Start Date Expiration Date V isits Requested Visits Authorized [id number] Closed Auto-Generate d Referral 12/31/2023 01/29/2025 1 1 Reason Comments Patient Question Nothing was availabl e for medicare wellness until February, AVOsman said to see in 4 months, offered patient to schedule with Ruby, she did not want to, wanted to know if scheduling her for February was okay with you? She asked me to send this to you. Referral ID Status Reason Start Date Expiration Date V isits Requested Visits Authorized [id number] Closed Auto-Generate d Referral 01/05/2023 02/04/2024 1 1 Reason Comments Breathing Problem Reason Comments urgency with urination X urgency and pre ssure x 2 days Specialty Diagnoses / Procedures Referred By Contac t Referred To Contact [facility] Diagnoses Encounter for screening mammogram for malignant neoplasm of breast Procedures NICOLE SCREENING W MICHELLE SCREENING BREAST DGTL MICHELLE UNI/BILAT ADD ON SCREENING MAMMOGRAPHY BI 2-VIEW BREAST INC CAD Ai Mtz PA-C [address] [place] [address] [facility] [address] [place] [address] Referral ID Status Reason Start Date Expiration Date V isits Requested Visits Authorized [id number] Closed Auto-Generate d Referral 07/08/2021 08/07/2022 1 1 Reason Comments Radiology Mammogram Reason Comments Telogen effluvium Reason Onset Date Comments Refill Request 08/29/2024 Reason Onset Date Comments Refill Request 10/08/2024 Reason Comments Orders Appointment Reason Onset Date Comments Refill Request 01/05/2025 Reason Comments Orders Medical Massage Reason Onset Date Comments Results 02/01/2025 Reason Comments Medicare Wellness Exam Reason Comments Nm Pet Request Reason Comments Forms [facility] Teams (unrecognized sec tion and content) Environmental Technician Relationship Specialty Start Date End Date Susannah Clemente MD [address] [place], [place] [id number] PCP - General Internal Medicine 11/10/16 Erwin Alfred MD [address] [place] [address] Primary Staff Physician Cardiology 11/07/21 Environmental Technician Relationship Specialty Start Date End Date Susannah Clemente MD [address] [place], [place] [id number] PCP - General Internal Medicine 11/10/16 Erwin Alfred MD [address] [place] [address] Primary Staff Physician Cardiology 11/07/21 Environmental Technician Relationship Specialty Start Date End Date Susannah Clemente MD [address] [place], [place] [id number] PCP - General Internal Medicine 11/10/16 Erwin Alfred MD [address] [place] [place] [address] Primary Staff Physician Cardiology 11/07/21 Environmental Technician Relationship Specialty Start Date End Date Susannah Clemente MD [address] [place], [place] [id number] PCP - General Internal Medicine 11/10/16 Erwin Alfred MD [address] [place] [address] Primary Staff Physician Cardiology 11/07/21 Environmental Technician Relationship Specialty Start Date End Date Susannah Clemente MD [address] [place], [place] [address] PCP - General Internal Medicine 11/10/16 Erwin Alfred MD [address] [address] Primary Staff Physician Cardiology 11/07/21 Environmental Technician Relationship Specialty Start Date End Date Susannah Clemente MD [address] [place], [place] 371452 PCP - General Internal Medicine 11/10/16 Erwin Alfred MD [address] [address] Primary Staff Physician Cardiology 11/07/21 Environmental Technician Relationship Specialty Start Date End Date Susannah Clemente MD [address] [place], [place] [address]872 PCP - General Internal Medicine 11/10/16 Erwin Alfred MD [address] [address] Primary Staff Physician Cardiology 11/07/21 Environmental Technician Relationship Specialty Start Date End Date Susannah Clemente MD [address] [place], [place] [id number] PCP - General Internal Medicine 11/10/16 Erwin Alfred MD [address] [address] Primary Staff Physician Cardiology 11/07/21 Environmental Technician Relationship Specialty Start Date End Date Susannah Clemente MD [address] [place], [place] 391222 PCP - General Internal Medicine 11/10/16 Erwin Alfred MD [address] [place] [place] [address] Primary Staff Physician Cardiology 11/07/21 Environmental Technician Relationship Specialty Start Date End Date Susannah Clemente MD [address] [place] [address] PCP - General Internal Medicine 11/10/16 Erwin Alfred MD [address] [place] [address] Primary Staff Physician Cardiology 11/07/21 Environmental Technician Relationship Specialty Start Date End Date Susannah Clemente MD [address] [place] [address] PCP - General Internal Medicine 11/10/16 Erwin Alfred MD [address] [place] [place] [address] Primary Staff Physician Cardiology 11/07/21 Environmental Technician Relationship Specialty Start Date End Date Susannah Clemente MD [address] [place] [address] PCP - General Internal Medicine 11/10/16 Erwin Alfred MD [address] [place] [place] [address] Primary Staff Physician Cardiology 11/07/21 Environmental Technician Relationship Specialty Start Date End Date Susannah Clemente MD [address] [place] [address] PCP - General Internal Medicine 11/10/16 Erwin Alfred MD [address] [place] [address] Primary Staff Physician Cardiology 11/07/21 Environmental Technician Relationship Specialty Start Date End Date Susannah Clemente MD [address] [place], [place] 072892 PCP - General Internal Medicine 11/10/16 Erwin Alfred MD [address] [address] Primary Staff Physician Cardiology 11/07/21 Environmental Technician Relationship Specialty Start Date End Date Susannah Clemente MD [address] [place], [place] [address] PCP - General Internal Medicine 11/10/16 Erwin Alfred MD [address] [address] Primary Staff Physician Cardiology 11/07/21 Environmental Technician Relationship Specialty Start Date End Date Susannah Clemente MD [address] [place], [place] 011612 PCP - General Internal Medicine 11/10/16 Erwin Alfred MD [address] [address] Primary Staff Physician Cardiology 11/07/21 Environmental Technician Relationship Specialty Start Date End Date Susannah Clemente MD [address] [place], [place] 0489[address] PCP - General Internal Medicine 11/10/16 Erwin Alfred MD [address] [address] Primary Staff Physician Cardiology 11/07/21 Environmental Technician Relationship Specialty Start Date End Date Susannah Clemente MD [address] [place] [address] PCP - General Internal Medicine 11/10/16 Erwin Alfred MD [address] [place] [address] Primary Staff Physician Cardiology 11/07/21 Environmental Technician Relationship Specialty Start Date End Date Susannah Clemente MD [address] [place] [address] PCP - General Internal Medicine 11/10/16 Erwin Alfred MD [address] [place] [address] Primary Staff Physician Cardiology 11/07/21 Environmental Technician Relationship Specialty Start Date End Date Susannah Clemente MD [address] [place] [address] PCP - General Internal Medicine 11/10/16 Erwin Alfred MD [address] [place] [address] Primary Staff Physician Cardiology 11/07/21 Environmental Technician Relationship Specialty Start Date End Date Susannah Clemente MD [address] [place] [address] PCP - General Internal Medicine 11/10/16 Erwin Alfred MD [address] [place] [address] Primary Staff Physician Cardiology 11/07/21 Environmental Technician Relationship Specialty Start Date End Date Susannah Clemente MD PCP - General Internal Medicine 11/10/16 Erwin Alfred MD [address] [place] [address] Primary Staff Physician Cardiology 11/07/21 Environmental Technician Relationship Specialty Start Date End Date Susannah Clemente MD PCP - General Internal Medicine 11/10/16 Erwin Alfred MD [address] [place] [address] Primary Staff Physician Cardiology 11/07/21 Environmental Technician Relationship Specialty Start Date End Date Susannah Clemente MD PCP - General Internal Medicine 11/10/16 Erwin Alfred MD [address] [place] [address] Primary Staff Physician Cardiology 11/07/21 Environmental Technician Relationship Specialty Start Date End Date Susannah Clemente MD PCP - General Internal Medicine 11/10/16 Erwin Alfred MD [address] [place] [address] Primary Staff Physician Cardiology 11/07/21 Environmental Technician Relationship Specialty Start Date End Date Susannah Clemente MD PCP - General Internal Medicine 11/10/16 Erwin Alfred MD [address] [place] [address] Primary Staff Physician Cardiology 11/07/21 Environmental Technician Relationship Specialty Start Date End Date Susannah Clemente MD PCP - General Internal Medicine 11/10/16 Erwin Alfred MD [address] [place] [address] Primary Staff Physician Cardiology 11/07/21 Environmental Technician Relationship Specialty Start Date End Date Susannah Clemente MD PCP - General Internal Medicine 11/10/16 Erwin Alfred MD [address] [place] [address] Primary Staff Physician Cardiology 11/07/21 Environmental Technician Relationship Specialty Start Date End Date Susannah Clemente MD PCP - General Internal Medicine 11/10/16 Erwin Alfred MD [address] [place] [address] Primary Staff Physician Cardiology 11/07/21 Environmental Technician Relationship Specialty Start Date End Date Susannah Clemente MD PCP - General Internal Medicine 11/10/16 Erwin Alfred MD [address] [place] [address] Primary Staff Physician Cardiology 11/07/21 Environmental Technician Relationship Specialty Start Date End Date Susannah Clemente MD PCP - General Internal Medicine 11/10/16 Erwin Alfred MD [address] [place] [address] Primary Staff Physician Cardiology 11/07/21 Environmental Technician Relationship Specialty Start Date End Date Susannah Clemente MD PCP - General Internal Medicine 11/10/16 Erwin Alfred MD [address] [place], [place] [id number] Primary Staff Physician Cardiology 11/07/21 Environmental Technician Relationship Specialty Start Date End Date Susannah Clemente MD PCP - General Internal Medicine 11/10/16 Erwin Alfred MD [address] [place] [address] Primary Staff Physician Cardiology 11/07/21 Environmental Technician Relationship Specialty Start Date End Date Susannah Clemente MD PCP - General Internal Medicine 11/10/16 Erwin Alfred MD [address] [place], [place] [id number] Primary Staff Physician Cardiology 11/07/21 Environmental Technician Relationship Specialty Start Date End Date Susannah Clemente MD PCP - General Internal Medicine 11/10/16 Erwin Alfred MD [address] [place], [place] [address] Primary Staff Physician Cardiology 11/07/21 Environmental Technician Relationship Specialty Start Date End Date Susannah Clemente MD PCP - General Internal Medicine 11/10/16 Erwin Alfred MD [address] [place] [address] Primary Staff Physician Cardiology 11/07/21 Environmental Technician Relationship Specialty Start Date End Date Susannah Clemente MD PCP - General Internal Medicine 11/10/16 Erwin Alfred MD [address] [place] [address] Primary Staff Physician Cardiology 11/07/21 Environmental Technician Relationship Specialty Start Date End Date Susannah Clemente MD PCP - General Internal Medicine 11/10/16 Erwin Alfred MD [address] [place] [address] Primary Staff Physician Cardiology 11/07/21 Team Status: Active Member Role Status Dates Dr. Susannah Clemente MD Primary Care Provider Active Team Status: Inactive Member Role Status Dates Dr. Susannah Clemente MD Primary Care Provider Active Dr. Alberto Bernal MD Emergency Provider Active Environmental Technician Relationship Specialty Start Date End Date Susannah Clemente MD PCP - General Internal Medicine 11/10/16 Erwin Alfred MD [address] [place] [address] Primary Staff Physician Cardiology 11/07/21 Environmental Technician Relationship Specialty Start Date End Date Susannah Clemente MD PCP - General Internal Medicine 11/10/16 Erwin Alfred MD [address] [place] [address] Primary Staff Physician Cardiology 11/07/21 Environmental Technician Relationship Specialty Start Date End Date Susannah Clemente MD PCP - General Internal Medicine 11/10/16 Erwin Alfred MD [address] [place] [address] Primary Staff Physician Cardiology 11/07/21 Environmental Technician Relationship Specialty Start Date End Date Susannah Clemente MD PCP - General Internal Medicine 11/10/16 Erwin Alfred MD [address] [place] [address] Primary Staff Physician Cardiology 11/07/21 Environmental Technician Relationship Specialty Start Date End Date Susannah Clemente MD PCP - General Internal Medicine 11/10/16 Erwin Alfred MD [address] [place] [address] Primary Staff Physician Cardiology 11/07/21 Environmental Technician Relationship Specialty Start Date End Date Susannah Clemente MD PCP - General Internal Medicine 11/10/16 Erwin Alfred MD [address] [place] [address] Primary Staff Physician Cardiology 11/07/21 Environmental Technician Relationship Specialty Start Date End Date Susannah Clemente MD PCP - General Internal Medicine 11/10/16 Erwin Alfred MD [address] [place] [address] Primary Staff Physician Cardiology 11/07/21 Environmental Technician Relationship Specialty Start Date End Date Susannah Clemente MD PCP - General Internal Medicine 11/10/16 Erwin Alfred MD [address] [place] [address] Primary Staff Physician Cardiology 11/07/21 Environmental Technician Relationship Specialty Start Date End Date Susannah Clemente MD PCP - General Internal Medicine 11/10/16 Erwin Alfred MD [address] [place] [address] Primary Staff Physician Cardiology 11/07/21 Environmental Technician Relationship Specialty Start Date End Date Susannah Clemente MD PCP - General Internal Medicine 11/10/16 Erwin Alfred MD [address] [place] [address] Primary Staff Physician Cardiology 11/07/21 Environmental Technician Relationship Specialty Start Date End Date Susannah Clemente MD PCP - General Internal Medicine 11/10/16 Erwin Alfred MD [address] [place], [place] [id number] Primary Staff Physician Cardiology 11/07/21 Environmental Technician Relationship Specialty Start Date End Date Susannah Clemente MD PCP - General Internal Medicine 11/10/16 Erwin Alfred MD [address] [place] [address] Primary Staff Physician Cardiology 11/07/21 Environmental Technician Relationship Specialty Start Date End Date Susannah Clemente MD PCP - General Internal Medicine 11/10/16 Erwin Alfred MD [address] [place], [place] [id number] Primary Staff Physician Cardiology 11/07/21 Environmental Technician Relationship Specialty Start Date End Date Susannah Clemente MD PCP - General Internal Medicine 11/10/16 Erwin Alfred MD [address] [place], [place] [id number] Primary Staff Physician Cardiology 11/07/21 Environmental Technician Relationship Specialty Start Date End Date Susannah Clemente MD PCP - General Internal Medicine 11/10/16 Erwin Alfred MD [address] [place], [place] [id number] Primary Staff Physician Cardiology 11/07/21 Environmental Technician Relationship Specialty Start Date End Date Susannah Clemente MD PCP - General Internal Medicine 11/10/16 Erwin Alfred MD [address] [place] [address] Primary Staff Physician Cardiology 11/07/21 Environmental Technician Relationship Specialty Start Date End Date Susannah Clemente MD PCP - General Internal Medicine 11/10/16 Erwin Alfred MD [address] [place] [id number] Primary Staff Physician Cardiology 11/07/21 Environmental Technician Relationship Specialty Start Date End Date Susannah Clemente MD PCP - General Internal Medicine 11/10/16 Erwin Alfred MD [address] [place] [address] Primary Staff Physician Cardiology 11/07/21 Environmental Technician Relationship Specialty Start Date End Date Susannah Clemente MD PCP - General Internal Medicine 11/10/16 Environmental Technician Relationship Specialty Start Date End Date Susannah Clemente MD PCP - General Internal Medicine 11/10/16 Environmental Technician Relationship Specialty Start Date End Date Susannah Clemente MD PCP - General Internal Medicine 11/10/16 Environmental Technician Relationship Specialty Start Date End Date Susannah Clemente MD PCP - General Internal Medicine 11/10/16 Erwin Alfred MD [address] [place] [id number] Primary Staff Physician Cardiology 11/07/21 Environmental Technician Relationship Specialty Start Date End Date Susannah Clemente MD PCP - General Internal Medicine 11/10/16 Erwin Alfred MD [address] [place] [address] Primary Staff Physician Cardiology 11/07/21 Environmental Technician Relationship Specialty Start Date End Date Susannah Clmeente MD PCP - General Internal Medicine 11/10/16 Erwin Alfred MD [address] [place] [address] Primary Staff Physician Cardiology 11/07/21 Environmental Technician Relationship Specialty Start Date End Date Susannah Clemente MD PCP - General Internal Medicine 11/10/16 Erwin Alfred MD [address] [place] [address] Primary Staff Physician Cardiology 11/07/21 Environmental Technician Relationship Specialty Start Date End Date Susannah Clemente MD PCP - General Internal Medicine 11/10/16 Erwin Alfred MD [address] [place] [address] Primary Staff Physician Cardiology 11/07/21 Environmental Technician Relationship Specialty Start Date End Date Susannah Clemente MD PCP - General Internal Medicine 11/10/16 Erwin Alfred MD [address] [place] [id number] Primary Staff Physician Cardiology 11/07/21 Ruby Hurst PA-C [address] [place] [address] [employer] Internal Medicine 09/25/24 Environmental Technician Relationship Specialty Start Date End Date Susannah Clemente MD PCP - General Internal Medicine 11/10/16 Erwin Alfred MD [address] [place] [id number] Primary Staff Physician Cardiology 11/07/21 Ruby Hurst PA-C [address] [place] [address] [employer] Internal Medicine 09/25/24 Environmental Technician Relationship Specialty Start Date End Date Susannah Clemente MD PCP - General Internal Medicine 11/10/16 Erwin Alfred MD [address] [place] [address] Primary Staff Physician Cardiology 11/07/21 Ruby Hurst PA-C [address] [place] [address] [employer] Internal Medicine 09/25/24 Environmental Technician Relationship Specialty Start Date End Date Susannah Clemente MD PCP - General Internal Medicine 11/10/16 Erwin Alfred MD [address] [place] [address] Primary Staff Physician Cardiology 11/07/21 Ruby Hurst PA-C [address] [place] [address] [employer] Internal Medicine 09/25/24 Environmental Technician Relationship Specialty Start Date End Date Susannah Clemente MD PCP - General Internal Medicine 11/10/16 Erwin Alfred MD [address] [place] [address] Primary Staff Physician Cardiology 11/07/21 Ruby Hurst PA-C [address] [place] [address] [employer] Internal Medicine 09/25/24 Environmental Technician Relationship Specialty Start Date End Date Susannah Clemente MD PCP - General Internal Medicine 11/10/16 Erwin Alfred MD [address] [place] [id number] Primary Staff Physician Cardiology 11/07/21 Ruby Hurst PA-C [address] [place] [address] [employer] Internal Medicine 09/25/24 Environmental Technician Relationship Specialty Start Date End Date Susannah Clemente MD PCP - General Internal Medicine 11/10/16 Erwin Alfred MD [address] [place] [address] Primary Staff Physician Cardiology 11/07/21 Ruby Hurst PA-C [address] [place] [address] [employer] Internal Medicine 09/25/24 Environmental Technician Relationship Specialty Start Date End Date Susannah Clemente MD PCP - General Internal Medicine 11/10/16 Erwin Alfred MD [address] [place] [id number] Primary Staff Physician Cardiology 11/07/21 Ruby Hurst PA-C [address] [place] [address] [employer] Internal Medicine 09/25/24 Environmental Technician Relationship Specialty Start Date End Date Susannah Clemente MD PCP - General Internal Medicine 11/10/16 Erwin Alfred MD [address] [place], [place] [address] Primary Staff Physician Cardiology 11/07/21 Ruby Hurst PA-C [address] [place] [address] [employer] Internal Medicine 09/25/24 Environmental Technician Relationship Specialty Start Date End Date Susannah Clemente MD PCP - General Internal Medicine 11/10/16 Erwin Alfred MD [address] [place] [id number] Primary Staff Physician Cardiology 11/07/21 Ruby Hurst PA-C [address] [place] [address] [employer] Internal Medicine 09/25/24 Environmental Technician Relationship Specialty Start Date End Date Susannah Clemente MD PCP - General Internal Medicine 11/10/16 Erwin Alfred MD [address] [place] [address] Primary Staff Physician Cardiology 11/07/21 Ruby Hurst PA-C [address] [place] [address] [facility] Internal Medicine 09/25/24 Environmental Technician Relationship Specialty Start Date End Date Susannah Clemente MD PCP - General Internal Medicine 11/10/16 Erwin Alfred MD [address] [place] [address] Primary Staff Physician Cardiology 11/07/21 Ruby Hurst PA-C [address] [place] [address] [facility] Internal Medicine 09/25/24 Goals (unrecognized section and content) Goals may be documented in a n alternate section FOR RECORDS PERTAINING TO PATIENTS WHO ARE [...] BE BASED ON THE PRIMARY CLINICAL RECORDS. [employer] provides no warranty or guarantee of the accuracy or completeness of information in this document.
--- NOTE | 2025-04-09 23:47 | EKG12_ITS ---
Test Reason : cp Blood Pressure : */* mmHG Vent. Rate : 66 BPM Atrial Rate : 66 BPM P-R Int : 166 ms QRS Dur : 76 ms QT Int : 398 ms P-R-T Axes : 69 48 66 degrees QTcB Int : 417 ms Normal sinus rhythm Normal ECG When compared with ECG of 09-Apr-2025 18:58, MANUAL COMPARISON REQUIRED DATA IS UNCONFIRMED Confirmed by AICHA SERRANO, ERICA ([id number]), newspaper managing editor NICOLAS HUERTAS ([id number]) on 04/10/2025 11:00:41 AM Referred By: Confirmed By: ERICA HOLCOMB MD
[2025-04-10] VITALS (16 sets, daily range): BP systolic 111–183; BP diastolic 57–103; PULSE 55–84; RESP 11–22; TEMP 35.6–36.8; O2SAT 85–96; BMI 20.5
--- OUTSIDE RECORDS SUMMARY | 2025-04-10 00:05 | XMS RPT_ITS | CCD ---
Author Organization [facility] CliniSywa Care Team Providers Care Redevelopment Manager Name Role Phone JAMAL, SCOTTY E Unavailable [...] Unavailable Susannah Clemente MD Primary Care Provider [phone] Erwin Alfred MD Unavailable Susannah Clemente MD Primary Care Provider [phone] Ruby Hurst PA-C Unavailable SUSANNAH CLEMENTE Referring [...] Drug Allergy 03-01-20 20 Other: See Comments [facility] Work Phone: Angiotensin 2 Receptor Blockers (ARB) (1 source) Losartan Drug Allergy 11-28-19 20 Other: See Comments [facility] Anticholinergics (1 source) Scopolamine Drug Allergy 10-30-19 12 Mental Status Change [facility] Work Phone: Calcium Channel Blockers (1 source) Verapamil Drug Allergy 05-06-20 16 GI Upset [facility] empagliflozin (1 source) empagliflozin Drug Allergy 11-20-19 23 Diarrhea [facility] Work Phone: HMG-CoA Reductase Inhibitors (statins) (1 source) atorvastatin Drug Allergy 11-09-19 20 Myalgia [facility] hydrALAZINE (1 source) hydrALAZINE Drug Allergy 08-12-20 20 Intolerance [facility] Iron (1 source) Iron Drug Allergy 09-03-20 05 GI Upset [facility] Pentazocine (1 source) Pentazocine Drug Allergy 09-30-20 09 Mental Status Change [facility] Spironolactone (1 source) Spironolactone Drug Allergy 07-10-20 Intolerance [facility] (20 sources) iron; Translations: [IRON] Drug Allergy 09-03-20 05 GI Upset [facility] Other [facility] (20 sources) pentazocine; Translations: [PENTAZOCINE LACTATE] Drug Allergy 09-30-20 09 Mental Status Change [facility] Repository (20 sources) scopolamine; Translations: [SCOPOLAMINE] Drug Allergy 10-30-19 12 Mental Status Change [facility] Repository (20 sources) verapamil; Translations: [VERAPAMIL HCL] Drug Allergy 05-06-20 16 GI Upset [facility] Repository (20 sources) amLODIPine; Translations: [AMLODIPINE] Drug Allergy 03-01-20 Other: See Comments [facility] Work Phone: (20 sources) atorvastatin; Translations: [ATORVASTATIN] Drug Allergy 11-09-19 Myalgia [facility] Work Phone: (20 sources) hydrALAZINE; Translations: [HYDRALAZINE] Drug Allergy 08-12-20 Intolerance [facility] (20 sources) Losartan; Translations: [LOSARTAN] Drug Allergy 11-28-19 Other: See Comments [facility] Work Phone: (20 sources) Spironolactone; Translations: [SPIRONOLACTONE] Drug Allergy 07-10-20 Intolerance [facility] Work Phone: (19 sources) Thiazides; Translations: [THIAZIDES] Drug Intolerance 12-15-19 Contraindicati on-Medical Surgical [facility] Work Phone: (20 sources) Thiazides Drug Intolerance 12-15-19 Contraindicati on-Medical Surgical [facility] Work Phone: (20 sources) empagliflozin; Translations: [EMPAGLIFLOZIN] Drug Allergy 11-20-19 Diarrhea [facility] Work Phone: (1 source) Pentazocine Drug Allergy 11-06-19 24 Other [facility] (20 sources) Angiotensin II receptor antagonist; Translations: [ARB-ANGIOTENSIN RECEPTOR ANTAGONIST] Propensity to adverse reactions to drug 11-16-19 24 Contraindicati on-Medical Surgical [facility] Work Phone: Medications Current Medications Medication [...] Comment on above: Take 1 capsule by [facility] twice daily for 7 days. [...] Comment on above: Take 1 capsule by [facility] once daily. 168 hr cloNIDine 0.91438 mg/hr transdermal system (20 sources) Central alpha-2 [...] on above: Take 1 capsule by mo [facility] at bedtime as needed. 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 90 tablet 4 02/18/2021 09/02/2022 Discontinued Start: 02-18-2021 take 1 tablet by rosalinda once daily Lmefol Jg-nkkeva-vcF27-algal (CEREFOLIN NAC, ALGAL OIL,) 6 mg-600 mg- [...] 10 mL injection (DEFINITY) polyethylene glycol 3350 69358 mg powder for oral solution (1 source) Osmotic Laxative Start: 0 End: 0 polyethylene glycol 3350 (MIRALAX, GLYCOLAX) 17 gram/dose powder Indications: Colon cancer screening Use as directed for Miralax / Gatorade Bowel Prep Kit 238 g 06/21/2020 07/30/2020 Discontinued (Discontinued by Patient) polyethylene glycol 3350 653443 mg / potassium chloride 2970 mg / sodium bicarbonate 6740 mg / sodium chloride 5860 mg / sodium sulfate 28224 mg powder for oral solution (1 source) [...] Comment on above: Take 1 capsule by [facility] at bedtime as needed for [...] Coronary atherosclerosis; Translations: [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 Is this request for a Main [facility] PET scan appointment? Yes: Deliverer Food: Divine Calabrese Who do we call to schedule this appointment? Patient Requesting Staff [id number] Area Code + Phone/Pager: N/A PET Orders [...] day/next day medically urgent scans please call [phone] to expedite Send requests to P CARDIAC [...] to ordering physician and to P PET WIRE COATING MACHINE OPERATOR with recommendations. If all recommended orders are present route to P PET WIRE COATING MACHINE OPERATOR Eron Thakkar 04/05/2025 8:24 AM Signed 04/05 [...] Assessed Reason for Visit: Nm Pet Request [[id number]] Prescriptions as of 04/05/2025 - indapamide (LOZOL) [...] Visit (BRAVO C HF GEOFFREY) ZENAIDA EVANS ([id number]) 1935 F Date Time Provider Department 04/03/25 11:30 AM PAUL BAUTISTA CARD CHF GEOFFREY During your visit today, we recorded the following information about you: Pulse Respiration Blood pressure Weight 67/minute 15/minute 168/89 58.5 kg Height 1.689 m Paul Bautista MD 04/03/2025 12:45 PM Signed [facility] SECTION OF HEART FAILURE and CARDIAC TRANSPLANT MEDICINE OUTPATIENT VISIT DATE April 03, 2025 OUTPATIENT VISIT TYPE Established Patient PRIMARY CARE PHYSICIAN: Susannah Clemente [address] [place] [address] CHIEF COMPLAINT: Shortness of breath and chest [...] 03/13/2011 no retinopathy detected -both eyes - [facility] - return in 1 year - [...] CAROL, du (more content not included)... Normal [facility] ECHOon 04-03-2025 Echocardiography Echocardiography Rep ort: Transthoracic Echo [facility] J1-5 Date of service: 04/03/2025 10:26:57 AM PROFESSOR Ordering physician: PAUL BAUTISTA Exam indication: HF [...] * * * Final * * * Written Medical Image : [id number] [email or web address] Normal [facility] CNPNon 04-02-2025 CNPN Telephone (INTMBR) ZENAIDA EVANS ([id number]) 1935 F Date Time Provider Department 04/02/25 SUSANNAH CLEMENTE INTRenny During your visit today, we recorded the following information about you: Tara Orona MA 04/02/2025 10:05 AM Signed Placed form in Dr. Clemente's in basket, please sign Susannah Clemente MD 04/05/2025 3:57 PM Signed This is an application to a wellness program at [facility]. I see that her Curtain Cleaner has ordered a stress test and I [...] Assessed Reason for Visit: Forms [913] Cmt: [facility] Prescriptions as of 04/05/2025 - indapamide [...] malignant neopla (more content not included)... Normal [facility] CNOVon 03-27-2025 CNOV Office Visit (INTMBR ) ZENAIDA EVANS ([id number]) 1935 F Date Time Provider Department 03/27/25 3:50 PM SUSANNAH CLEMENTE During your visit today, we recorded the following information about you: Temperature Pulse Blood pressure Weight 97.6 degrees 62/minute 149/81 60.4 kg Height 1.676 m Susannah Clemente MD 03/27/2025 5:41 PM Signed Zenaida Evans is a 89 year old female here for a Medicare wellness visit. Recording using mcTEL software for draft documentation of the visit was discussed with the patient/authorized sales training representative; all questions welcomed and answered. Patient/authorized sales training representative agreed to proceed Zenaida Evans is [...] and difficulty walking during a meeting in [facility]. A stress test was performed in July following this event, which showed her heart rate only reached 79% of the maximum, but no ischemia was detected. She has a follow-up appointment with her sewing machine operator floorperson, Dr. Bautista, next week and an echocardiogram [...] record. Dr. Bautista Cardiology Dr. Candace Manning [facility] Alicia Hylton, Breast Psychology [facility] [place] when daughter was sick [facility] GI Medical/Family history review Reviewed and updated problem list, medical/surgical/famil (more content not included)... Normal [facility] Basic metabolic 2000 panelon 02-01-2025 Anion gap [Moles/Vol] 7 mmol/L Low 8-15 [facility] Comment on above: Order Comment: Speci men Type: BLOOD SPECIMENOrdering Facility: [facility] Address: [address] [place], [place] [address] Performed By: #### 2 4321-2 ####[facility] FAM SOLISMOLINEBRANDON [id number] [place] [id number] [place] Calcium [Mass/Vol] 9.9 mg/dL Normal 8.5-10.2 [facility] Comment on above: Order Comment: Speci men Type: BLOOD SPECIMENOrdering Facility: [facility] Address: [address] [place] [address] Performed By: #### 2 4321-2 ####[facility] [id number] [place] [address] [place] Chloride [Moles/Vol] 104 mmol/L Normal 98-107 [facility] Comment on above: Order Comment: Speci men Type: BLOOD SPECIMENOrdering Facility: [facility] Address: [address] [place] [address] Performed By: #### 2 4321-2 ####[facility] [id number] [place] [address] [place] CO2 [Moles/Vol] 28 mmol/L Normal 22-30 [facility] Comment on above: Order Comment: Speci men Type: BLOOD SPECIMENOrdering Facility: [facility] Address: [address] [place] [address] Performed By: #### 2 4321-2 ####[facility] [id number] [place] [address] [place] Creatinine [Mass/Vol] 1.38 mg/dL High 0.58-0.96 [facility] Comment on above: Order Comment: Speci men Type: BLOOD SPECIMENOrdering Facility: [facility] Address: [address] [place] [address] Performed By: #### 2 4321-2 ####[facility]CL[facility] [id number] [place] [address] [place] Creatinine and Glomerular filtration rate.predicted panel (S/P/Bld) 37 mL/min/1.73m??? Low >=60 [facility] Comment on above: Order Comment: Speci men Type: BLOOD SPECIMENOrdering Facility: [facility] Address: [address] [place] [address] Result Comment: Shanon mated Glomerular Filtration Rate [...] actual GFR. Performed By: #### 2 4321-2 ####[facility] [id number] [place] [address] [place] Glucose [Mass/Vol] 102 mg/dL High 74-99 [facility] Comment on above: Order Comment: Ledy pablo Type: BLOOD SPECIMENOrdering Facility: [facility] Address: [address] [place] [address] Result Comment: The [place] Diabetes Association (ADA) provides guidance for cutoff [...] Standards of Medical Care in Diabetes 2016, [place] Diabetes Association. Diabetes Care. 2016.39(Suppl 1). Performed By: #### 2 4321-2 ####[facility]ITALA [id number] [place] [address] [place] Potassium [Moles/Vol] 4.7 mmol/L Normal 3.7-5.1 [facility] Comment on above: Order Comment: Ledy pablo Type: BLOOD SPECIMENOrdering Facility: [facility] Address: [address] [place] [address] Performed By: #### 2 4321-2 ####[facility] [id number] [place] [address] [place] Sodium [Moles/Vol] 139 mmol/L Normal 136-144 [facility] Comment on above: Order Comment: Speci men Type: BLOOD SPECIMENOrdering Facility: [facility] Address: [address] [place] [address] Performed By: #### 2 4321-2 ####[facility] CENTERNCTONYA [id number] [place] [address] [place] Urea nitrogen [Mass/Vol] 43 mg/dL High 7-21 [facility] Comment on above: Order Comment: Speci men Type: BLOOD SPECIMENOrdering Facility: [facility] Address: [address] [place] [address] Performed By: #### 2 4321-2 ####[facility] HOSPITALWNCLIA [id number] [place] [address] [place] CBC W Auto Differential pane l (Bld)on 02-01-2025 Basophils (Bld) [#/Vol] 10*3/uL Normal <0.11 [facility] Comment on above: Order Comment: Speci men Type: BLOOD SPECIMENOrdering Facility: [facility] Address: [address] [place] [address] Performed By: #### 5 7021-8 ####[facility]ERNCLIA [id number] [place] [address] [place] Basophils/100 WBC (Bld) 0.5 % Normal [facility] Comment on above: Order Comment: Speci men Type: BLOOD SPECIMENOrdering Facility: [facility] Address: [address] [place] [address] Performed By: #### 5 7021-8 ####[facility]ENTERNCLIA [id number] [place] [address] [place] Differential cell count method Nom (Bld) Auto Normal [facility] Comment on above: Order Comment: Speci men Type: BLOOD SPECIMENOrdering Facility: [facility] Address: [address] [place] [address] Performed By: #### 5 7021-8 ####[facility]ENTERGEORGECENTRAL VALLEY [facility] [id number] [place] [address] [place] Eosinophils (Bld) [#/Vol] 0.06 10*3/uL Normal <0.46 [facility] Comment on above: Order Comment: Speci men Type: BLOOD SPECIMENOrdering Facility: [facility] Address: [address] [place] [address] Performed By: #### 5 7021-8 ####[facility] [id number] [place] [address] [place] Eosinophils/100 WBC (Bld) 1.4 % Normal [facility] Comment on above: Order Comment: Speci men Type: BLOOD SPECIMENOrdering Facility: [facility] Address: [address] [place] [address] Performed By: #### 5 7021-8 ####[facility] [id number] [place] [address] [place] Erythrocyte distribution width (RBC) [Ratio] 12.8 % Normal 11.5-15.0 [facility] Comment on above: Order Comment: Speci men Type: BLOOD SPECIMENOrdering Facility: [facility] Address: [address] [place] [address] Performed By: #### 5 7021-8 ####[facility] [id number] [place] [address] [place] Hematocrit (Bld) [Volume fraction] 33.2 % Low 36.0-46.0 [facility] Comment on above: Order Comment: Speci men Type: BLOOD SPECIMENOrdering Facility: [facility] Address: [address] [place] [address] Performed By: #### 5 7021-8 ####[facility] HOSPITALWNCLIA [id number] [place] [address] [place] Hemoglobin (Bld) [Mass/Vol] 11.0 g/dL Low 11.5-15.5 [facility] Comment on above: Order Comment: Speci men Type: BLOOD SPECIMENOrdering Facility: [facility] Address: [address] [place] [address] Performed By: #### 5 7021-8 ####[facility] CENTERLIA [id number] [place] [address] [place] Immature granulocytes (Bld) [#/Vol] 10*3/uL Normal <0.10 [facility] Comment on above: Order Comment: Speci men Type: BLOOD SPECIMENOrdering Facility: [facility] Address: [address] [place] [address] Performed By: #### 5 7021-8 ####[facility]OSPITALA [id number] [place] [address] [place] Immature granulocytes/100 WBC (Bld) 0.2 % Normal [facility] Comment on above: Order Comment: Speci men Type: BLOOD SPECIMENOrdering Facility: [facility] Address: [address] [place] [address] Performed By: #### 5 7021-8 ####[facility] CENTERLIA [id number] [place] [address] [place] Lymphocytes (Bld) [#/Vol] 1.82 10*3/uL Normal 1.00-4.00 [facility] Comment on above: Order Comment: Speci men Type: BLOOD SPECIMENOrdering Facility: [facility] Address: [address] [place] [address] Performed By: #### 5 7021-8 ####[facility]ENTERNCLIA [id number] [place] [address] [place] Lymphocytes/100 WBC (Bld) 42.4 % Normal [facility] Comment on above: Order Comment: Speci men Type: BLOOD SPECIMENOrdering Facility: [facility] Address: [address] [place] [address] Performed By: #### 5 7021-8 ####[facility]ENTERNCCENTRAL [facility] [id number] [place] [address] [place] MCH (RBC) [Entitic mass] 31.3 pg Normal 26.0-34.0 [facility] Comment on above: Order Comment: Speci men Type: BLOOD SPECIMENOrdering Facility: [facility] Address: [address] [place] [address] Performed By: #### 5 7021-8 ####[facility]ENTERNCCENTR[facility] [id number] [place] [address] [place] MCHC (RBC) [Mass/Vol] 33.1 g/dL Normal 30.5-36.0 [facility] Comment on above: Order Comment: Speci men Type: BLOOD SPECIMENOrdering Facility: [facility] Address: [address] [place] [address] Performed By: #### 5 7021-8 ####[facility] [id number] [place] [address] [place] MCV (RBC) [Entitic vol] 94.3 fL Normal 80.0-100.0 [facility] Comment on above: Order Comment: Speci men Type: BLOOD SPECIMENOrdering Facility: [facility] Address: [address] [place] [address] Performed By: #### 5 7021-8 ####[facility]ENTERNCCENTRAL [facility] [id number] [place] [address] [place] Monocytes (Bld) [#/Vol] 0.41 10*3/uL Normal <0.87 [facility] Comment on above: Order Comment: Speci men Type: BLOOD SPECIMENOrdering Facility: [facility] Address: [address] [place] [address] Performed By: #### 5 7021-8 ####[facility] WILLJOSSELIA [id number] [place] [address] [place] Monocytes/100 WBC (Bld) 9.6 % Normal [facility] Comment on above: Order Comment: Speci men Type: BLOOD SPECIMENOrdering Facility: [facility] Address: [address] [place] [address] Performed By: #### 5 7021-8 ####[facility]ENTERNCLIA [id number] [place] [address] [place] Neutrophils (Bld) [#/Vol] 1.97 10*3/uL Normal 1.45-7.50 [facility] Comment on above: Order Comment: Speci men Type: BLOOD SPECIMENOrdering Facility: [facility] Address: [address] [place] [address] Performed By: #### 5 7021-8 ####[facility]ITALA [id number] [place] [address] [place] Neutrophils/100 WBC (Bld) 45.9 % Normal [facility] Comment on above: Order Comment: Speci men Type: BLOOD SPECIMENOrdering Facility: [facility] Address: [address] [place] [address] Performed By: #### 5 7021-8 ####[facility]ENTERNCLIA [id number] [place] [address] [place] Nucleated RBC (Bld) [#/Vol] 10*3/uL Normal <0.01 [facility] Comment on above: Order Comment: Speci men Type: BLOOD SPECIMENOrdering Facility: [facility] Address: [address] [place] [address] Performed By: #### 5 7021-8 ####[facility] HOSPITALTOWNCLIA [id number] [place] [address] [place] Nucleated RBC/100 WBC (Bld) [Ratio] 0.0 /100 WBC Normal [facility] Comment on above: Order Comment: Speci men Type: BLOOD SPECIMENOrdering Facility: [facility] Address: [address] [place] [address] Performed By: #### 5 7021-8 ####[facility] WILLMOLINEBRANDON [id number] [place] [address] [place] Platelet mean volume (Bld) [Entitic vol] 9.1 fL Normal 9.0-12.7 [facility] Comment on above: Order Comment: Speci men Type: BLOOD SPECIMENOrdering Facility: [facility] Address: [address] [place] [address] Performed By: #### 5 7021-8 ####[facility] CENTERGEORGEScott [id number] [place] [address] [place] Platelets (Bld) [#/Vol] 150 10*3/uL Normal 150-400 [facility] Comment on above: Order Comment: Speci men Type: BLOOD SPECIMENOrdering Facility: [facility] Address: [address] [place] [address] Performed By: #### 5 7021-8 ####[facility] WILLMOLINEBRYANNAA [id number] [place] [address] [place] RBC (Bld) [#/Vol] 3.52 10*6/uL Low 3.90-5.20 [facility] Comment on above: Order Comment: Speci men Type: BLOOD SPECIMENOrdering Facility: [facility] Address: [address] [place] [address] Performed By: #### 5 7021-8 ####[facility]ENTERNCLIA [id number] [place] [address] [place] WBC (Bld) [#/Vol] 4.29 10*3/uL Normal 3.70-11.00 [facility] Comment on above: Order Comment: Speci men Type: BLOOD SPECIMENOrdering Facility: [facility] Address: [address] [place] [address] Performed By: #### 5 7021-8 ####[facility] FAM [facility] [id number] [place] [id number] [place] [address] [place] CNPNon 01-15-2025 CNPN Telephone (INTMBR) ZENAIDA EVANS ([id number]) 1935 F Date Time Provider Department 01/15/25 SUSANNAH CLEMENTE INTMBR During your visit today, we recorded the following information about you: Juliet Ayala 01/15/2025 11:06 AM Signed Tommy is calling Susannah Clemente MD today to request Orders (Medical Massage) Patient has been identified by name and birthdate. 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 Normal [facility] CBC W Auto Differential pane l (Bld)on 11-17-2024 Basophils (Bld) [#/Vol] 10*3/uL Normal <0.11 [facility] Comment on above: Order Comment: Speci men Type: BLOOD SPECIMENOrdering Facility: [facility] Address: [address] [place] [address] Performed By: #### 5 7021-8 ####[facility] [id number] [place] [address] [place] Basophils/100 WBC (Bld) 0.5 % Normal [facility] Comment on above: Order Comment: Speci men Type: BLOOD SPECIMENOrdering Facility: [facility] Address: [address] [place] [address] Performed By: #### 5 7021-8 ####[facility] [id number] [place] [address] [place] Differential cell count method Nom (Bld) Auto Normal [facility] Comment on above: Order Comment: Speci men Type: BLOOD SPECIMENOrdering Facility: [facility] Address: [address] [place] [address] Performed By: #### 5 7021-8 ####[facility]ERNCA [id number] [place] [address] [place] Eosinophils (Bld) [#/Vol] 0.05 10*3/uL Normal <0.46 [facility] Comment on above: Order Comment: Speci men Type: BLOOD SPECIMENOrdering Facility: [facility] Address: [address] [place] [address] Performed By: #### 5 7021-8 ####[facility] WILLKAMALA [id number] [place] [address] [place] Eosinophils/100 WBC (Bld) 1.2 % Normal [facility] Comment on above: Order Comment: Speci men Type: BLOOD SPECIMENOrdering Facility: [facility] Address: [address] [place] [address] Performed By: #### 5 7021-8 ####[facility]ENTERNCJOSHUA [id number] [place] [address] [place] Erythrocyte distribution width (RBC) [Ratio] 13.1 % Normal 11.5-15.0 [facility] Comment on above: Order Comment: Speci men Type: BLOOD SPECIMENOrdering Facility: [facility] Address: [address] [place] [address] Performed By: #### 5 7021-8 ####[facility]ERNCLIA [id number] [place] [address] [place] Hematocrit (Bld) [Volume fraction] 33.8 % Low 36.0-46.0 [facility] Comment on above: Order Comment: Speci men Type: BLOOD SPECIMENOrdering Facility: [facility] Address: [address] [place] [address] Performed By: #### 5 7021-8 ####[facility]ERNCLIA [id number] [place] [address] [place] Hemoglobin (Bld) [Mass/Vol] 11.4 g/dL Low 11.5-15.5 [facility] Comment on above: Order Comment: Speci men Type: BLOOD SPECIMENOrdering Facility: [facility] Address: [address] [place] [address] Performed By: #### 5 7021-8 ####[facility] MILLWNCLIA [id number] [place] [address] [place] Immature granulocytes (Bld) [#/Vol] 10*3/uL Normal <0.10 [facility] Comment on above: Order Comment: Speci men Type: BLOOD SPECIMENOrdering Facility: [facility] Address: [address] [place] [address] Performed By: #### 5 7021-8 ####[facility]ERNCLIA [id number] [place] [address] [place] Immature granulocytes/100 WBC (Bld) 0.2 % Normal [facility] Comment on above: Order Comment: Speci men Type: BLOOD SPECIMENOrdering Facility: [facility] Address: [address] [place] [address] Performed By: #### 5 7021-8 ####[facility] CENTERLIA [id number] [place] [address] [place] Lymphocytes (Bld) [#/Vol] 1.92 10*3/uL Normal 1.00-4.00 [facility] Comment on above: Order Comment: Speci men Type: BLOOD SPECIMENOrdering Facility: [facility] Address: [address] [place] [address] Performed By: #### 5 7021-8 ####[facility] CENTERLIA [id number] [place] [address] [place] Lymphocytes/100 WBC (Bld) 46.4 % Normal [facility] Comment on above: Order Comment: Speci men Type: BLOOD SPECIMENOrdering Facility: [facility] Address: [address] [place] [address] Performed By: #### 5 7021-8 ####[facility] CENTERLIA [id number] [place] [address] [place] MCH (RBC) [Entitic mass] 32.0 pg Normal 26.0-34.0 [facility] Comment on above: Order Comment: Speci men Type: BLOOD SPECIMENOrdering Facility: [facility] Address: [address] [place] [address] Performed By: #### 5 7021-8 ####[facility]ERNCCENTR[facility] [id number] [place] [address] [place] MCHC (RBC) [Mass/Vol] 33.7 g/dL Normal 30.5-36.0 [facility] Comment on above: Order Comment: Speci men Type: BLOOD SPECIMENOrdering Facility: [facility] Address: [address] [place] [address] Performed By: #### 5 7021-8 ####[facility]ERNCCENTR[facility] [id number] [place] [address] [place] MCV (RBC) [Entitic vol] 94.9 fL Normal 80.0-100.0 [facility] Comment on above: Order Comment: Speci men Type: BLOOD SPECIMENOrdering Facility: [facility] Address: [address] [place] [address] Performed By: #### 5 7021-8 ####[facility] [id number] [place] [address] [place] Monocytes (Bld) [#/Vol] 0.52 10*3/uL Normal <0.87 [facility] Comment on above: Order Comment: Speci men Type: BLOOD SPECIMENOrdering Facility: [facility] Address: [address] [place] [address] Performed By: #### 5 7021-8 ####[facility]ERNCCEN[facility] [id number] [place] [address] [place] Monocytes/100 WBC (Bld) 12.6 % Normal [facility] Comment on above: Order Comment: Speci men Type: BLOOD SPECIMENOrdering Facility: [facility] Address: [address] [place] [address] Performed By: #### 5 7021-8 ####[facility] WILLTOWNCLIA [id number] [place] [address] [place] Neutrophils (Bld) [#/Vol] 1.62 10*3/uL Normal 1.45-7.50 [facility] Comment on above: Order Comment: Speci men Type: BLOOD SPECIMENOrdering Facility: [facility] Address: [address] [place] [address] Performed By: #### 5 7021-8 ####[facility] MILLWNCLIA [id number] [place] [address] [place] Neutrophils/100 WBC (Bld) 39.1 % Normal [facility] Comment on above: Order Comment: Speci men Type: BLOOD SPECIMENOrdering Facility: [facility] Address: [address] [place] [address] Performed By: #### 5 7021-8 ####[facility] WILLWNCLIA [id number] [place] [address] [place] Nucleated RBC (Bld) [#/Vol] 10*3/uL Normal <0.01 [facility] Comment on above: Order Comment: Speci men Type: BLOOD SPECIMENOrdering Facility: [facility] Address: [address] [place] [address] Performed By: #### 5 7021-8 ####[facility] MILLWNCLIA [id number] [place] [address] [place] Nucleated RBC/100 WBC (Bld) [Ratio] 0.0 /100 WBC Normal [facility] Comment on above: Order Comment: Speci men Type: BLOOD SPECIMENOrdering Facility: [facility] Address: [address] [place] [address] Performed By: #### 5 7021-8 ####[facility] CENTERGEORGELIA [id number] [place] [address] [place] Platelet mean volume (Bld) [Entitic vol] 9.4 fL Normal 9.0-12.7 [facility] Comment on above: Order Comment: Speci men Type: BLOOD SPECIMENOrdering Facility: [facility] Address: [address] [place] [address] Performed By: #### 5 7021-8 ####[facility] CENTERGEORGELIA [id number] [place] [address] [place] Platelets (Bld) [#/Vol] 159 10*3/uL Normal 150-400 [facility] Comment on above: Order Comment: Speci men Type: BLOOD SPECIMENOrdering Facility: [facility] Address: [address] [place] [address] Performed By: #### 5 7021-8 ####[facility] CENTERLIA [id number] [place] [address] [place] RBC (Bld) [#/Vol] 3.56 10*6/uL Low 3.90-5.20 [facility] Comment on above: Order Comment: Speci men Type: BLOOD SPECIMENOrdering Facility: [facility] Address: [address] [place] [address] Performed By: #### 5 7021-8 ####[facility] CENTERLIA [id number] [place] [address] [place] WBC (Bld) [#/Vol] 4.14 10*3/uL Normal 3.70-11.00 [facility] Comment on above: Order Comment: Speci men Type: BLOOD SPECIMENOrdering Facility: [facility] Address: [address] [place] [address] Performed By: #### 5 7021-8 ####[facility]ENTERNCLIA [id number] [place] [address] [facility] Laurita 11-15-2024 CNPN Telephone (INTMBR) ZENAIDA EVANS ([id number]) 1935 F Date Time Provider Department 11/15/24 [...] Message can be given upon returned call [place] aMra Maciel 11/16/2024 9:22 AM Signed Patient returned [...] BLOOD COUNT AND DIFFERENTIAL [SQCBCDIF] Order #: [id number] FUTURE Prescriptions as of 11/16/2024 - labetalol [...] 12/02/2011 09/19/20 (more content not included)... Normal [facility] CNPNon 10-24-2024 CNPN Telephone (FAMPTW) ZENAIDA EVANS ([id number]) 1935 F Date Time Provider Department 10/24/24 [...] calling: self Call patient at: at home [phone] (home) verified as best number per patient Was an appointment scheduled: No Closing statement: Results or non-symptom based questions: Thank you for calling [facility], your call will be returned within the next business day. Johana Victor [facility] Abena Aviles, RN 10/24/2024 11:18 AM Signed [...] 06/18/2010 09/19/2020 (more content not included)... Normal [facility] SURGICAL PATHOLOGYOrdered By : Helga German on 07-28-2024 Case Report Surgical Pathology R eport Case: [id number] Authorizing Provider: Michelle Choudhary MD Collected: 07/26/2024 02:14 PM Ordering Location: Dermatology Received: 07/26/2024 07:02 PM Pathologist: Helga German MD Specimen: Skin, Shave Biopsy, A. right cheek, r/o [facility] Work Phone: Clinical History r2jooIHsAVAfw7uuMTHd bGFuZzEw VwQtBfIhOjt7TAQtkvI7Bsz1BMYh CMhrrT3tLNQdOIpdK8ekteWshIMu NEDzEGy4mF1kkDzntR2pPjYyNvFm MCBIeCBvZiBOTVNDXHBhciB9 [facility] Work Phone: FINAL DIAGNOSIS z1dmmHArAFCgeXJcZOwy MlxhbnNp DCRsgJCeX3AtmfjyVMopLI2cJO7c qNezqDXsoAZwXRGqVvSkt7wok148 kNUln3flRKEWbbezcOn2hBciP52u q1U4IltzX73ybWBqEUS9JXTpANOd xSYuQNLaXSF7HICswTUcT2geQKTs GD9mwdwzSEswFXpaAGWeaNS8PJAm oMPkO3AoQPQgJOmbINRjzlx6OvFa Wf2thIGnjBaaIXcxQUTnWTJwJKgt TQJcLiXoDU7eW4sizceyefhreKWi Q9ajLPvtLPBnOMRwLNHyi3KukJck gZQzSL5zP3Jkq5BbeBXtVkYlVHQp oH7lzUPrZPKydaqdSKKdVJZRX62I IoSuDU9tIP5bOJDuYKb1JbRSNMqg YXJ9 [facility] Work Phone: Gross Description c2mqaTZqPJRxmLFIYKY0 ICCfPS4j hCougYf9cWmmURIerlQ3fPVuZJfa j9tpTXX9u5dynpRQDxphXJZlVR5k LFcyDKYmRW9aXbKhKARuYnLpBXSh qFIznlDcFbTfNLBsqWAffIS1OMJr BT4mithpYZkoHCzzOYKbyzN6FKNc sMGaS5HbBUZvPA1ezhnaTHR2EFPF OunrQg9bjBSzoCncGdQnMlFnVVUw EYJfDJSox8mjvdMVgnxjuGb1vE5M EKEqD8HoSL0Gb3lgKZNgeBVvIAD2 ZEttf4ygTUfwZHK8KGImYMBaARUb DZ0OCcGuNEz7TUw9RCvsHaX5DJf4 ONPBOUOvUDY1UYh9TfLdQKm4LGcb XFxuaCBcXHQgMSBcXGZsIFxcbmN9 x4okVTBjzDSmHYH0KQmqq7knKHff VAP5CZFtTwBpWNZqAZ0GYaWfQJj5 OAw7BInnAtP7KAn7HOCLUhVdJoSr HGw9JGZ7LIHyGLy0THl8LGaWZgHb Htc7ReF6MyG5XzO2CPBlVKPiJKIu HaTqRCZgXOHjIHyfdUGvIP9xfOxz QUXnWL6LSLLbCSziUQFtImSpGB9u N5dlfdqcH8exhdNkVpfoxAD3UNy6 ymFtMUThysOIUoaqLIXwRD6KKDDl HOujYXy2fhJiRPNpQhUsUITcE96h s3RLb8YqQC1CSDl2wwMozkJROaal nlCaXXTeM8OyiqFqDJvkZIHfad9a uHzlWQEfKHI1bCZfMUHuHTeyNK88 dxWyFbK6QN1fUNQuNzMqw9dllmMs R3veEVklnLfaQbZ4tuNpNjHitBYv RgTtbMP1KOEpNXFeeJ2eQ0QvU6pc GT6rpRFep8UtzTrvbqIuWeEIn9Uu pVd2QCP0Jp7erZQkEYOkqaJ7u62t O4Coa9Y8yMDzBzRlgYIrIY6OUSJt rnORFjdRWuMLN4IsCtGePNhdIKCs MjQgODozNiBQTVxwYXIgDQpccGFy NK3QGCQsXrEgDDLzH5tpEFUdGE7D C6Zhf4ExEIwamWxwAOPwr26koJAt Yh8njCFsAHO1JLHvVFOcnQBfLFVT oYyhiOFeJOv3TDOwZSOswZxtPJI7 RY2kPVNiAUXztZLgSMfpQ3odWRNq PUSPRwmkyNjwQwAywLFcIjZ0UEBf kYOgFZU7XJ4ejIdnXMHvG6MaF8Om hvM5CRVwppYHSdpqLKDbCC0UGXCp MjIgDQp9 [facility] Work Phone: Performing Lab n3ivnJSlOKCzvROvGwHf MDAwXGFu b9qbWZWllPBvStRhQfEmAyDoSnax nIOkSQDqRwQiz6qpm034aYGph9vx XFSnMeN5kAQvTBXeaNUzL383GSMe WTrbb0pxc9TjVANmsUHgm7V1IOOU opowgFi6dJyqT09qt0O4EebsS3hm OZChNZZtG1SlEJ1bLNKmTgd3ZIT7 PYW6RUPvTJTaE8ZqFR6wDCQlwHYt AUe2m0wmwGfsBKYfHJS5y6msVInj pfBuIU8fxn9guCy9q1pyxgEyBPDk WLAvwIMVLWDxV2MokWidWb4cxPy0 cQgwEpefHAM0Wok4DY3inc10wzj7 jEhmWQThpdexQfZ0JRzbEZZxdxwl XEr4ZQktBTVynFC9WPDjfLSrA5Lh THscGE2mdrh6FFX5SChaSOBvOcU4 YVOzvEOxZBVqeScrFHduj031VBE8 BfKpXO6mB4Ntz4H8bX6zoLUxUURf uAJqSpKjRRCikh7agSLtMKuck1Cl AMI7vcW2aGQofPVwCAGgQK90Xxhs t8JkVilag1GdK12eiIZ4JLvzb4ur QN5bXdD3acToKGkwc2ejbD8dGeI3 ZPhhYZ8vZR5hYVYuiH8lssnnQIIl ZhBgxqtmUNUheSyoceAjFd3tdPvk ARL6MTxgP6umeH9oGbV7PPzmR4wy xZ1lOIa5MJwpmLT3TRQecY2mRH8b hmfvs8ewRSkuSZjsROIjkaG2gpQu FKSlhDTkM4VxlE5pTABzFN6idjme d0skFBO3GMuzFKDfMJB1RlJyFINw y2Jglmx9AfYjx6ZsrTNlIBawS90d b111CHGkkhZoC3hbsVQqwyynfIEg graxWKjfkeM3MLBzZGBrCLgdDOKn XGZzMjBcbGFuZzEwMzNcaGljaFxm GQmfUlWfGIMdNDwiO3ouIqWfNvMh XWIBjRMbhj1obXquLXbuqDNlcLMo kOE5sV2dKWNiipQljc7jSLNuyTAU hYT4BVuoqzTkE4cwruipDDB8FJAz ZEY4J4uzJPNGcjYtMAEsOFAadBXe OFOEMUX9GCL7VFTxCNWPXOIxQST1 SGI2XYGzECCyeCCwZAAzckrhCPYt YMQwRVmzUWEdRDJgXjAmdWjlrN9x HwVaLvMqHVpiGH8eCXCwJ4hcuZSl GXEoTGNlC5uzAnIyeN9bpAadFDan ZjJcZnMyMFxsdHJjaCBMYWJvcmF0 l3C2KXljeCWpjyexLJrknxCfAYaq dsjoLMGfHOliM4otAkGiDUWdzSsy PXihd7ZgGUOcKQCsVvCqNVumBIE4 v3Z7LNnbpWWihhRFRiIUFR1swJVv jdesNE0RZxdqyBGmmobyXRxuyfXk TJubfjfnXSVwTMabG2wgIlKhJHGs aDddPNwya6NvHSEqRYTzQnOyhQNe fQ== [facility] Work Phone: [facility] Work Phone: STRESS ECHO TREADMILLon 10-1 STRESS ECHO TREADMILL 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 ZENAIDA EVANS Age: 89 years Gender: F The supervising physician was in the department and immediately available. Final Echocardiography Report: [facility] Date of service: 07/27/2024 10:26:06 AM PROFESSOR Ordering physician: SUSANNAH CLEMENTE Indication: Shortness of [...] 04/02/2023. Final Stress ECG Report: [facility] Date of service: 07/27/2024 10:26:06 AM PROFESSOR Ordering physician: SUSANNAH CLEMENTE case manager specialist: Thomas Escobar Interpreting physician: Brandyn Moore [...] Michael pr (more content not included)... Normal [facility] CNOVon 07-26-2024 CNOV Office Visit (DERMMN ) CRISTINAZENAIDA [place] ([id number]) 1935 F Date Time Provider Department 07/26/24 [...] 03/13/2011 no retinopathy detected -both eyes - [facility] - return in 1 year - Dr. [...] Abs Lymph 1.00 - 4.00 k/uL 2.24 [place]% % 14.7 Abs [place] <0.87 k/uL 0.83 [place]% % 3.0 Abs [...] NAD, pleasant (more content not included)... Normal [facility] SURGICAL PATHOLOGYon 10-09-2 024 CASE REPORT Normal [facility] Comment on above: Order Comment: Speci men Type: TISSUE SPECIMENOrdering Facility: [facility] Address: [address] [place] [address] Result Comment: Surg ica Pathology Report Case: [id number] Authorizing Provider: Michelle Choudhary MD Collected: 07/26/2024 02:14 PM Ordering Location: Dermatology Received: 07/26/2024 07:02 PM Pathologist: Helga German MD Specimen: Skin, Shave Biopsy, A. right cheek, r/o NMSC Performed By: #### S ####[facility] LABCLIA [id number] [place] [address] [place] CLINICAL HISTORY Hx of NMSC Normal [facility] Comment on above: Order Comment: Speci men Type: TISSUE SPECIMENOrdering Facility: [facility] Address: [address] [place] [address] Performed By: #### S ####[facility] LABCLIA [id number] [place] [address] [place] FINAL DIAGNOSIS Normal [facility] Comment on above: Order Comment: Speci men Type: TISSUE SPECIMENOrdering Facility: [facility] Address: [address] [place] [address] Result Comment: A. S kin, right cheek, shave biopsy: - Seborrheic keratosis. MPP/NJV 07/27/24 10:52 AM Performed By: #### S ####[facility] LABCLIA [id number] [place] [address] [place] FINAL PERFORMING LAB Normal [facility] Comment on above: Order Comment: Speci men Type: TISSUE SPECIMENOrdering Facility: [facility] Address: [address] [place] [address] Result Comment: Diag nostic interpretation performed at [facility], [address] [place] [address] CLIA# [id number] Tack Cutter: Nino Leiva M.D. Performed By: #### S ####[facility] LABIA [id number] [place] [address] [place] GROSS DESCRIPTION Normal [facility] Comment on above: Order Comment: Speci men Type: TISSUE SPECIMENOrdering Facility: [facility] Address: [address] [place] [address] Result Comment: A. S kin, Shave Biopsy Received in formalin are three segments of mc, soft skin aggregating to 1.2 x 0.6 x < 0.1 cm. Specimen is sectioned. Totally submitted in two cassettes. [facility] July 26, 2024 8:36 PM Gross examination performed at [facility], [address] [place] [address] Performed By: #### S ####[facility] [id number] [place] [address] [place] Bacteria Ur Culton [...] , Intermediate >32 , Resistant >64 Abnormal [facility] Comment on above: Performed By: #### 6 30-4 ####[facility] LABCLIA [id number] [place] [id number] [place] [facility] CNOVon 07-17-2024 CNOV Office Visit (UCWSTR ) ZENAIDA EVANS ([id number]) 1935 F Date Time Provider Department 07/17/24 10:30 AM DOMINGUEZ HARKINS [facility] During your visit today, we recorded [...] with the prescribing physician. Dominguez Harkins MD Allergies As of Date: 07/17/2024 Noted [...] of urination [R39.15] Order(s):UA DIP, URINE (POC) [[id number]] Order #: [id number]. #:[id number] URINE CULTURE [SQURCUL] Order #: [id number]. #:[id number] cephALEXin (KEFLEX) 500 mg capsuleTake (more content not included)... Normal [facility] UA DIP, URINE (POC)on 2023 BILIRUBIN UA (POCT) Small Abnormal Negative [facility] CLARITY UA (POCT) Clear [facility] COLOR UA (POCT) [place] [facility] GLUCOSE UA (POCT) 100 mg/dL Abnormal Negative [facility] Hemoglobin Ql (U) Trace-intact Abnormal Negative [facility] Interpretation and review of laboratory results Abnormal [facility] KETONE UA (POCT) Negative Negative mg/dL [facility] LEUKOCYTES UA (POCT) Large Abnormal Negative [facility] NITRITE UA (POCT) Positive Abnormal Negative [facility] PH UA (POCT) 7.0 4.5 - 8.0 [facility] Protein Ql (U) 100 mg/dL Abnormal Negative [facility] SPECIFIC GRAVITY UA (POCT) 1.020 1.005 - 1.030 [facility] UROBILINOGEN UA (POCT) 2.0 Abnormal Ophelia l E.U./dL [facility] Location:[address], [place], [address] [facility] POINT OF CARE [facility] XR CHEST 2V FRONTAL/LATon XR CHEST 2V [...] spine. Scoliosis. IMPRESSION: No acute radiographic abnormality. Laborer Yard: [facility] Transcribe Date/Time: Jul 14 2024 2:10P Dictated by : MANASA CARTER MD This examination was interpreted and the report reviewed and electronically signed by: MANASA CARTER MD on Jul 14 2024 2:11PM EST [id number] Normal [facility] XR Chest PA and Lateralon IMPRESSION: No acute radiographic abnormality. Laborer Yard: [facility] Transcribe Date/Time: Jul 14 2024 [...] the spine. Scoliosis. DIVISION OF RADIOLOGY Provider, [facility] Robin [facility] - 07/14/2024 * * *Final Report* [...] Scoliosis. IMPRESSION IMPRESSION: No acute radiographic abnormality. Laborer Yard: [facility] Transcribe Date/Time: Jul 14 2024 2:10P Dictated by : MANASA CARTER MD This examination was interpreted and the report reviewed and electronically signed by: MANASA CARTER MD on Jul 14 2024 2:11PM EST [facility] Radiology Study observation (narrative) [facility] XR Chest PA and LateralOrder ed By: Ccf Provider on 07-14-2024 [facility] CNOVon 07-13-2024 CNOV Office Visit (FAMPBR ) CRISTINAZENAIDA ([id number]) 1935 F Date Time Provider Department 07/13/24 2:40 PM ERWIN ROSALESPBRenny During your visit today, we recorded the following information about you: Temperature Pulse Respiration Blood pressure 98.2 degrees 63/minute 20/minute 165/82 Weight 62.3 kg Erwin Rosales MD 07/13/2024 3:01 PM Signed This note was created using Innohubriter. 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 Normal [facility] CNOVon 07-03-2024 CNOV Office Visit (INTMBR ) ZENAIDA EVANS ([id number]) 1935 F Date Time Provider Department 07/03/24 10:20 AM SUSANNAH CLEMENTE INTMBRenny During your visit today, we recorded the following information about you: Temperature Pulse Blood pressure Weight 97.9 degrees 74/minute 136/72 61.3 kg Susannah Clemente MD 07/03/2024 11:03 AM Signed Note created with [employer]: HPI The patient is a 89-year-old [...] 4.00 k/uL 1.67 1.87 1.88 1.62 2.24 [place]% % 10.5 11.3 13.1 11.6 14.7 Abs [place] <0.87 k/uL 0.46 0.50 0.50 0.53 0.83 [...] infections. Pres (more content not included)... Normal [facility] CNPNon 07-03-2024 CNPN Telephone (FAMPBR) ZENAIDA EVANS ([id number]) 1935 F Date Time Provider Department 07/03/24 [...] Fully Assessed Reason for Visit: Patient Question [4443] Cmt: Nothing was available for medicare wellness [...] 10/13/2011 03/2 (more content not included)... Normal [facility] ECG COMPLETEon 07-03-2024 Atrial Rate 68 BPM [facility] Calculated P [place] 65 degrees [facility] Calculated R [place] 46 degrees [facility] Calculated T [place] 62 degrees [facility] P-R Interval 172 ms [facility] QRS Duration 80 ms [facility] QT Interval 402 ms [facility] QTC Calculation (Bazett) 427 ms [facility] Ventricular Rate 68 BPM [facility] NORMAL SINUS RHYTHM POSSIBLE LEFT ATRIAL ENLARGEMENT BORDERLINE ECG Confirmed by JOSÉ MIGUEL PEREZ MD ([id number]) on 07/03/2024 3:08:37 PM [facility] NAME : ZENAIDA EVANS PID : [id number] : 1935 Gender : Female Race : ORD : Procedure Date : Jul 03 2024 10:54:36 Edit Date : Jul 03 2024 15:08:42 Diagnosis: NORMAL SINUS RHYTHM POSSIBLE LEFT ATRIAL ENLARGEMENT BORDERLINE ECG Confirmed by JOSÉ MIGUEL PEREZ MD ([id number]) on 07/03/2024 3:08:37 PM Test Reason : Location : 156 : [facility] Overread By : JOSÉ MIGUEL PEREZ MD Edited By : JOSÉ MIGUEL PEREZ MD Referred By : DR CLEMENTE, Acquired by : , [facility] [id number] 07-03-2024 ECG01 Ventricular Rate : 6 8 BPM Atrial Rate : 68 BPM P-R Interval : 172 ms QRS Duration : 80 ms Q-T Interval : 402 ms QTC Calculation(Bazett) : 427 ms Calculated P [place] : 65 degrees Calculated R [place] : 46 degrees Calculated T [place] : 62 degrees NORMAL SINUS RHYTHM POSSIBLE LEFT ATRIAL ENLARGEMENT BORDERLINE ECG Confirmed by JOSÉ MIGUEL PEREZ MD ([id number]) on 07/03/2024 3:08:37 PM NAME : ZENAIDA EVANS PID : [id number] : 1935 Gender : Female Race : ORD : Procedure Date : Jul 03 2024 10:54:36 Edit Date : Jul 03 2024 15:08:42 Diagnosis: NORMAL SINUS RHYTHM POSSIBLE LEFT ATRIAL ENLARGEMENT BORDERLINE ECG Confirmed by JOSÉ MIGUEL PEREZ MD ([id number]) on 07/03/2024 3:08:37 PM Test Reason : Location : 156 : [facility] Overread By : JOSÉ MIGUEL PEREZ MD Edited By : JOSÉ MIGUEL PEREZ MD Referred By : DR CLEMENTE, Acquired by : SS, Olga [facility] Bacteria Ur Culton 4 Bacteria identified [...] , Intermediate >32 , Resistant >64 Abnormal [facility] Comment on above: Performed By: #### 6 30-4 ####[facility] LABCLIA [id number] [place] [id number] [facility] CNOVon 06-26-2024 CNOV Office Visit (UCWSTR ) ZENAIDA EVANS ([id number]) 1935 F Date Time Provider Department 06/26/24 4:00 PM EMILEE CR[facility] During your visit today, we recorded the following information about you: Temperature Pulse Respiration Blood pressure 97.4 degrees 78/minute 16/minute 132/78 Weight 60.8 kg Emilee Crump, CIRCUIT COURT JUDGE.NETWORKER 06/26/2024 3:56 PM Signed Urinary Problem-When to [...] treated. A physician, nurse practitioner or physician digital assistant may treat with a short course [...] young women if symptoms resolve. Emilee Crump, CIRCUIT COURT JUDGE.NETWORKER 06/26/2024 4:09 PM Signed Patient presents with: [...] Diagnosis:Urinary frequency [R35.0] Order(s):UA DIP, URINE (POC) [[id number]] Order #: [id number] (more content not included)... Normal [facility] UA DIP, URINE (POC)on 2023 BILIRUBIN UA (POCT) Negative Negative [facility] CLARITY UA (POCT) Cloudy [facility] COLOR UA (POCT) Dark yellow [facility] GLUCOSE UA (POCT) 250 mg/dL Abnormal Negative [facility] Hemoglobin Ql (U) Moderate Abnormal Negative [facility] Interpretation and review of laboratory results Abnormal [facility] KETONE UA (POCT) Negative Negative mg/dL [facility] LEUKOCYTES UA (POCT) Small Abnormal Negative [facility] NITRITE UA (POCT) Positive Abnormal Negative [facility] PH UA (POCT) 7.0 4.5 - 8.0 [facility] Protein Ql (U) 30 mg/dL Abnormal Negative [facility] SPECIFIC GRAVITY UA (POCT) 1.020 1.005 - 1.030 [facility] UROBILINOGEN UA (POCT) 1.0 Ophelia l E.U./dL [facility] Location:[facility], [address] [place] [address], [place], [place], [address] [place] [address] POINT OF CARE [facility] Basic metabolic 2000 panelon 06-24-2024 Anion gap [Moles/Vol] 11 mmol/L Normal 8-15 [facility] Comment on above: Order Comment: Speci men Type: BLOOD SPECIMENOrdering Facility: [facility] Address: [address] [place] [address] Performed By: #### 2 4331-1, 68001-1 ####[facility] LABIA [id number] [place] [address] [place] Calcium [Mass/Vol] 9.6 mg/dL Normal 8.5-10.2 [facility] Comment on above: Order Comment: Speci men Type: BLOOD SPECIMENOrdering Facility: [facility] Address: [address] [place] [address] Performed By: #### 2 4331-1, 49353-1 ####[facility]IA [id number] [place] [address] [place] Chloride [Moles/Vol] 106 mmol/L Normal 98-107 [facility] Comment on above: Order Comment: Speci men Type: BLOOD SPECIMENOrdering Facility: [facility] Address: [address] [place] [address] Performed By: #### 2 4331-1, 23989-6 ####[facility] LABCLIA [id number] [place] [id number] [place] CO2 [Moles/Vol] 27 mmol/L Normal 22-30 [facility] Comment on above: Order Comment: Speci men Type: BLOOD SPECIMENOrdering Facility: [facility] Address: [address] [place], [place] [address] Performed By: #### 2 4331-1, 67239-2 ####[facility] LABCLIA [id number] [address] [address] [place] Creatinine [Mass/Vol] 1.34 mg/dL High 0.58-0.96 [facility] Comment on above: Order Comment: Specmickie pablo Type: BLOOD SPECIMENOrdering Facility: [facility] Address: [address] [place] [address] Performed By: #### 2 4331-1, 87830-1 ####[facility]IA [id number] [place] [address] [place] Creatinine and Glomerular filtration rate.predicted panel (S/P/Bld) 38 mL/min/1.73m??? Low >=60 [facility] Comment on above: Order Comment: [facility] Type: BLOOD SPECIMENOrdering Facility: [facility] Address: [address] [place] [address] Result Comment: Shanon mated Glomerular Filtration Rate [...] actual GFR. Performed By: #### 2 4331-1, 31192-3 ####[facility]IA [id number] [place] [id number] [place] Glucose [Mass/Vol] 100 mg/dL High 74-99 [facility] Comment on above: Order Comment: Speci men Type: BLOOD SPECIMENOrdering Facility: [facility] Address: [address] [place] [address] Result Comment: The [place] Diabetes Association (ADA) provides guidance for cutoff [...] Standards of Medical Care in Diabetes 2016, Spanish Diabetes Association. Diabetes Care. 2016.39(Suppl 1). Performed By: #### 2 4331-1, 27947-3 ####[facility] LABCLIA [id number] [place] [address] [place] Potassium [Moles/Vol] 4.6 mmol/L Normal 3.7-5.1 [facility] Comment on above: Order Comment: Lului men Type: BLOOD SPECIMENOrdering Facility: [facility] Address: [address] [place] [address] Performed By: #### 2 4331-, 23464-4 ####[facility]IA [id number] [place] [address] [place] Sodium [Moles/Vol] 144 mmol/L Normal 136-144 [facility] Comment on above: Order Comment: Ledy pablo Type: BLOOD SPECIMENOrdering Facility: [facility] Address: [address] [place] [address] Performed By: #### 2 4331-1, 72915-2 ####[facility]IA [id number] [place] [address] [place] Urea nitrogen [Mass/Vol] 30 mg/dL High 7-21 [facility] Comment on above: Order Comment: Lului men Type: BLOOD SPECIMENOrdering Facility: [facility] Address: [address] [place] [address] Performed By: #### 2 4331-1, 12530-6 ####[facility]IA [id number] [place] [address] [place] CBC W Auto Differential pane l (Bld)on 06-24-2024 Basophils (Bld) [#/Vol] 0.03 10*3/uL Normal <0.11 [facility] Comment on above: Order Comment: Speci men Type: BLOOD SPECIMENOrdering Facility: [facility] Address: [address] [place] [address] Performed By: #### 5 7021-8 ####[facility] LABCLIA [id number] [place] [address] [place] Basophils/100 WBC (Bld) 0.5 % Normal [facility] Comment on above: Order Comment: Speci men Type: BLOOD SPECIMENOrdering Facility: [facility] Address: [address] [place] [address] Performed By: #### 5 7021-8 ####[facility] LABCLIA [id number] [place] [address] [place] Differential cell count method Nom (Bld) Auto Normal [facility] Comment on above: Order Comment: Speci men Type: BLOOD SPECIMENOrdering Facility: [facility] Address: [address] [place] [address] Performed By: #### 5 7021-8 ####[facility] LABCLIA [id number] [place] [address] [place] Eosinophils (Bld) [#/Vol] 0.17 10*3/uL Normal <0.46 [facility] Comment on above: Order Comment: Speci men Type: BLOOD SPECIMENOrdering Facility: [facility] Address: [address] [place] [address] Performed By: #### 5 7021-8 ####[facility] LABCLIA [id number] [place] [address] [place] Eosinophils/100 WBC (Bld) 3.0 % Normal [facility] Comment on above: Order Comment: Speci men Type: BLOOD SPECIMENOrdering Facility: [facility] Address: [address] [place] [address] Performed By: #### 5 7021-8 ####[facility] LABCLIA [id number] [place] [address] [place] Erythrocyte distribution width (RBC) [Ratio] 12.5 % Normal 11.5-15.0 [facility] Comment on above: Order Comment: Speci men Type: BLOOD SPECIMENOrdering Facility: [facility] Address: [address] [place] [address] Performed By: #### 5 7021-8 ####[facility] LABCLIA [id number] [place] [address] [place] Hematocrit (Bld) [Volume fraction] 35.9 % Low 36.0-46.0 [facility] Comment on above: Order Comment: Speci men Type: BLOOD SPECIMENOrdering Facility: [facility] Address: [address] [place] [address] Performed By: #### 5 7021-8 ####[facility]IA [id number] [place] [address] [place] Hemoglobin (Bld) [Mass/Vol] 11.3 g/dL Low 11.5-15.5 [facility] Comment on above: Order Comment: Speci men Type: BLOOD SPECIMENOrdering Facility: [facility] Address: [address] [place] [address] Performed By: #### 5 7021-8 ####[facility] LABIA [id number] [place] [address] [place] Immature granulocytes (Bld) [#/Vol] 10*3/uL Normal <0.10 [facility] Comment on above: Order Comment: Speci men Type: BLOOD SPECIMENOrdering Facility: [facility] Address: [address] [place] [address] Performed By: #### 5 7021-8 ####[facility] LABIA [id number] [place] [address] [place] Immature granulocytes/100 WBC (Bld) 0.4 % Normal [facility] Comment on above: Order Comment: Speci men Type: BLOOD SPECIMENOrdering Facility: [facility] Address: [address] [place] [address] Performed By: #### 5 7021-8 ####[facility] LABCLIA [id number] [place] [address] [place] Lymphocytes (Bld) [#/Vol] 2.24 10*3/uL Normal 1.00-4.00 [facility] Comment on above: Order Comment: Speci men Type: BLOOD SPECIMENOrdering Facility: [facility] Address: [address] [place] [address] Performed By: #### 5 7021-8 ####[facility] LABCLIA [id number] [place] [address] [place] Lymphocytes/100 WBC (Bld) 39.6 % Normal [facility] Comment on above: Order Comment: Speci men Type: BLOOD SPECIMENOrdering Facility: [facility] Address: [address] [place] [address] Performed By: #### 5 7021-8 ####[facility] LABCLIA [id number] [place] [address] [place] MCH (RBC) [Entitic mass] 31.3 pg Normal 26.0-34.0 [facility] Comment on above: Order Comment: Speci men Type: BLOOD SPECIMENOrdering Facility: [facility] Address: [address] [place] [address] Performed By: #### 5 7021-8 ####[facility] LABCLIA [id number] [place] [address] [place] MCHC (RBC) [Mass/Vol] 31.5 g/dL Normal 30.5-36.0 [facility] Comment on above: Order Comment: Speci men Type: BLOOD SPECIMENOrdering Facility: [facility] Address: [address] [place] [address] Performed By: #### 5 7021-8 ####[facility] LABCLIA [id number] [place] [address] [place] MCV (RBC) [Entitic vol] 99.4 fL Normal 80.0-100.0 [facility] Comment on above: Order Comment: Speci men Type: BLOOD SPECIMENOrdering Facility: [facility] Address: [address] [place] [address] Performed By: #### 5 7021-8 ####[facility] LABCLIA [id number] [place] [address] [place] Monocytes (Bld) [#/Vol] 0.83 10*3/uL Normal <0.87 [facility] Comment on above: Order Comment: Speci men Type: BLOOD SPECIMENOrdering Facility: [facility] Address: [address] [place] [address] Performed By: #### 5 7021-8 ####[facility] LABCLIA [id number] [place] [address] [place] Monocytes/100 WBC (Bld) 14.7 % Normal [facility] Comment on above: Order Comment: Speci men Type: BLOOD SPECIMENOrdering Facility: [facility] Address: [address] [place] [address] Performed By: #### 5 7021-8 ####[facility] LABCLIA [id number] [place] [address] [place] Neutrophils (Bld) [#/Vol] 2.37 10*3/uL Normal 1.45-7.50 [facility] Comment on above: Order Comment: Speci men Type: BLOOD SPECIMENOrdering Facility: [facility] Address: [address] [place] [address] Performed By: #### 5 7021-8 ####[facility] LABCLIA [id number] [place] [address] [place] Neutrophils/100 WBC (Bld) 41.8 % Normal [facility] Comment on above: Order Comment: Speci men Type: BLOOD SPECIMENOrdering Facility: [facility] Address: [address] [place] [address] Performed By: #### 5 7021-8 ####[facility] LABCLIA [id number] [place] [address] [place] Nucleated RBC (Bld) [#/Vol] 10*3/uL Normal <0.01 [facility] Comment on above: Order Comment: Speci men Type: BLOOD SPECIMENOrdering Facility: [facility] Address: [address] [place] [address] Performed By: #### 5 7021-8 ####[facility] LABCLIA [id number] [place] [address] [place] Nucleated RBC/100 WBC (Bld) [Ratio] 0.0 /100 WBC Normal [facility] Comment on above: Order Comment: Speci men Type: BLOOD SPECIMENOrdering Facility: [facility] Address: [address] [place] [address] Performed By: #### 5 7021-8 ####[facility] LABCLIA [id number] [place] [address] [place] Platelet mean volume (Bld) [Entitic vol] 10.8 fL Normal 9.0-12.7 [facility] Comment on above: Order Comment: Speci men Type: BLOOD SPECIMENOrdering Facility: [facility] Address: [address] [place] [address] Performed By: #### 5 7021-8 ####[facility] LABCLIA [id number] [place] [address] [place] Platelets (Bld) [#/Vol] 172 10*3/uL Normal 150-400 [facility] Comment on above: Order Comment: Speci men Type: BLOOD SPECIMENOrdering Facility: [facility] Address: [address] [place] [address] Performed By: #### 5 7021-8 ####[facility] LABCLIA [id number] [place] [address] [place] RBC (Bld) [#/Vol] 3.61 10*6/uL Low 3.90-5.20 [facility] Comment on above: Order Comment: Speci men Type: BLOOD SPECIMENOrdering Facility: [facility] Address: [address] [place] [address] Performed By: #### 5 7021-8 ####[facility]IA [id number] [place] [address] [place] WBC (Bld) [#/Vol] 5.66 10*3/uL Normal 3.70-11.00 [facility] Comment on above: Order Comment: Speci men Type: BLOOD SPECIMENOrdering Facility: [facility] Address: [address] [place] [address] Performed By: #### 5 7021-8 ####[facility]IA [id number] [place] [address] [place] Lipid 1996 panelon 4 Cholesterol [Mass/Vol] 194 mg/dL Normal <200 [facility] Comment on above: Order Comment: Speci men Type: BLOOD SPECIMENOrdering Facility: [facility] Address: [address] [place] [address] Result Comment: <200 mg/dL, Desirable 200-239 mg/dL, Borderline high >239 mg/dL, High Performed By: #### 2 4331-1, 83384-0 ####[facility] [id number] [place] [address] [place] Cholesterol in HDL [Mass/Vol] 78 mg/dL Normal >39 [facility] Comment on above: Order Comment: Speci men Type: BLOOD SPECIMENOrdering Facility: [facility] Address: [address] [place] [address] Result Comment: 40-5 9 mg/dL, Acceptable >59 mg/dL, High: Negative risk factor for coronary heart disease <40 mg/dL, Low: Positive risk factor for coronary heart disease Performed By: #### 2 4331-1, 03021-9 ####[facility] LABCLIA [id number] [place] [address] [place] Cholesterol in LDL [Mass/Vol] 99 mg/dL Normal <100 [facility] Comment on above: Order Comment: Speci men Type: BLOOD SPECIMENOrdering Facility: [facility] Address: [facility] [place] [address] Result Comment: <100 mg/dL, Optimal 100-129 mg/dL, Near optimal/above optimal 130-159 mg/dL, Borderline high 160-189 mg/dL, High >189 mg/dL, Very high Secondary prevention optimal LDL Cholesterol levels are recommended to be < 70 mg/dL Performed By: #### 2 433-1, 05103-5 ####[facility] LABCLIA [id number] [place] [address] [place] Cholesterol in LDL/Cholesterol in HDL [Mass ratio] 1.27 {ratio} Normal <2.54 [facility] Comment on above: Order Comment: Speci men Type: BLOOD SPECIMENOrdering Facility: [facility] Address: [address] [place] [address] Result Comment: Refe rence: 1. National Cholesterol Education Program ATP III Guideline At-A-Glance Quick Desk Reference: National Heart, Lung, and Blood [place]. National Institutes of Health. 2001: NIH Publication No. 01-3305. 2. An International Atherosclerosis Society position paper: global recommendations for the management of dyslipidemia: executive summary, Atherosclerosis. 2014: 232(2):410-413. Performed By: #### 2 4331-1, 84065-3 ####[facility] LABCLIA [id number] [place] [address] [place] Cholesterol in VLDL [Mass/Vol] 17 mg/dL Normal <30 [facility] Comment on above: Order Comment: Speci men Type: BLOOD SPECIMENOrdering Facility: [facility] Address: [address] [place] [address] Performed By: #### 2 4331-1, 11419-0 ####[facility]CLIA [id number] [address] [address] [place] Cholesterol non HDL [Mass/Vol] 116 mg/dL Normal <130 [facility] Comment on above: Order Comment: Speci men Type: BLOOD SPECIMENOrdering Facility: [facility] Address: [address] [place] [address] Result Comment: <130 mg/dL, Optimal 130-159 mg/dL, Near optimal/above optimal 160-189 mg/dL, Borderline high 190-219 mg/dL, High >219 mg/dL, Very high Secondary prevention optimal non HDL Cholesterol levels are recommended to be <100 mg/dL Performed By: #### 2 433-1, 67788-8 ####[facility] LABCLIA [id number] [place] [address] [place] Cholesterol.total/Chol esterol in HDL [Mass ratio] 2.49 {ratio} Normal <5.10 [facility] Comment on above: Order Comment: Speci men Type: BLOOD SPECIMENOrdering Facility: [facility] Address: [address] [place] [address] Performed By: #### 2 4331-1, 90109-8 ####[facility] LABCLIA [id number] [place] [address] [place] FASTING TIME 12 hrs Normal [facility] Comment on above: Order Comment: Speci men Type: BLOOD SPECIMENOrdering Facility: [facility] Address: [address] [place] [id number] Performed By: #### 2 4331-1, 14118-3 ####[facility] LABCLIA [id number] [place] [address] [place] Triglyceride [Mass/Vol] 84 mg/dL Normal <150 [facility] Comment on above: Order Comment: Speci men Type: BLOOD SPECIMENOrdering Facility: [facility] Address: [address] [place] [address] Result Comment: <150 mg/dL, Normal 150-199 mg/dL, Borderline high 200-499 mg/dL, High >499 mg/dL, Very high Performed By: #### 2 4331-1, 88388-8 ####[facility]CLIA [id number] [place]Y SHELD[address]DES[id number] [facility] CNOVon 06-11-2024 CNOV Office Visit (UCWSTR ) ZENAIDA EVANS ([id number]) 1935 F Date Time Provider Department 06/11/24 12:30 PM KELSI ZAVALA [facility] During your visit today, we recorded [...] history is provided by the patient. No food selector was used. Rash This is a new [...] Comment: no retinopathy detected -both eyes - [facility] - return in 1 year - [...] skin cancer 11/2020: S FINGER JOINT IMPLANT [phone]; Left Comment: Candace Marmolejo left thumb joint [...] (LONITEN) 2.5 (more content not included)... Normal [facility] Laurita 04-10-2024 CNPN Telephone (INTMBR) ZENAIDA EVANS ([id number]) 1935 F Date Time Provider Department 04/10/24 [...] hip [M (more content not included)... Normal [facility] DBT Breast - bilateral scree paula 01-10-2024 * * *Final Report* * * DATE OF EXAM: Jan 07 2024 11:25AM [facility]W 0582 - NICOLE SCREENING W MICHELLE / PROCEDURE REASON: Encounter for screening mammogram for breast cancer * * * * Physician Interpretation * * * * RESULT: #[id number] - [facility] SCREENING W MICHELLE BILATERAL DIGITAL SCREENING MAMMOGRAM [...] 08/18/2021 mammogram, and 07/30/2020 mammogram - [facility]. The breasts are heterogeneously dense, which may obscure small masses. There are benign post operative findings and biopsy clips in the right breast. There is a possible asymmetry in the right breast inner region seen on the craniocaudal view only. No other significant masses, calcifications, or other findings are seen in either breast. DIVISION OF RADIOLOGY Provider, [facility] - 01/10/2024 * * *Final Report* * * DATE OF EXAM: Jan 07 2024 11:25AM [facility] 0582 - [facility] SCREENING W MICHELLE / PROCEDURE REASON: Encounter for screening mammogram for breast cancer * * * * Physician Interpretation * * * * RESULT: #[id number] - [facility] SCREENING W MICHELLE BILATERAL DIGITAL SCREENING MAMMOGRAM [...] 08/18/2021 mammogram, and 07/30/2020 mammogram - [facility]. The breasts are heterogeneously dense, which may [...] possible ultrasound are recommended. Cristina cha/meghan:01/10/2024 09:51:04 Overhead Worker(s): Stefany Donaldson RT(R)(M), [facility] letter sent: Additional Imaging Needed Mammogram BI-RADS: 0 Incomplete: needs additional imaging evaluation If this report indicates you need additional imaging, and it has NOT yet been performed, please call , to schedule. We sincerely thank you for choosing the [facility] for your breast imaging needs. Multiple national specialty organizations have released breast cancer screening guidelines for women at average risk for developing breast cancer - guidelines that are based on both evidence and opinion, yet differ on when to start and how often to screen for breast cancer. With representation from Breast Imaging, Internal Medicine, Women's Health, Family Medicine, and Medical/Surgical Oncology, the [facility] has carefully reviewed the data and reached [...] their providers when to stop screening mammograms. [place]orer [place]: Meghan Transcribe Date/Time: Jan 07 2024 10:48A Dictated by: CRISTINA BENSON MD This examination was interpreted and the report reviewed and electronically signed by: CRISTINA BENSON MD on Jan 10 2024 9:51AM EST [facility] DBT Breast - bilateral scree ningOrdered By: Ccf Provider on 01-10-2024 [facility] DBT Breast - bilateral scree erickgon 01-07-2024 Radiology Study observation (narrative) [facility] Absolute lymphocyte countOrd ered By: Armida Mason on 11-06-2023 Lymphocytes Auto (Unsp spec) [#/Vol] 1.63 10*3/uL 0.83-4.51 [facility] Automated lymphocyte count a s percentage of total leukocytesOrdered By: Armida Mason on 11-06-2023 Lymphocytes/100 WBC Auto (Unsp spec) 23.0 % 19-41 [facility] Basophil percentageOrdered B y: Armida Mason on 11-06-2023 Basophils/100 WBC (Bld) 0.3 % 0-1 [facility] Chloride [Moles/Vol] 109 mmol/L 98-107 [facility] Eosinophils/100 WBC (Bld) 0.8 % 0-5 [facility] Glucose [Mass/Vol] 106 mg/dL 74-106 [facility] Comment on above: Fasting Glucose resu lt from 100 to 125 mg/dL suggests IMPAIRED HOMEOSTASIS per A.D.A. criteria. Hemoglobin (Bld) [Mass/Vol] 11.0 g/dL 12.0-15.0 [facility] Monocytes/100 WBC (Bld) 10.0 % 0-10 [facility] Neutrophils (Bld) [#/Vol] 4.6 10*3/uL 2.0-7.7 [facility] Neutrophils/100 WBC (Bld) 65.5 % 47-70 [facility] Potassium [Moles/Vol] 4.1 mmol/L 3.5-5.1 [facility] Sodium [Moles/Vol] 140 mmol/L 136-145 [facility] WBC (Bld) [#/Vol] 7.1 10*3/uL 4.4-11.0 [facility] Determination of erythrocyte mean corpuscular volume (MCV)Ordered By: Armida Mason on 11-06-2023 MCV (RBC) [Entitic vol] 97.7 fL 81-99 [facility] Erythrocyte distribution wid th ratioOrdered By: Armida Mason on 11-06-2023 Erythrocyte distribution width (RBC) [Ratio] 13.2 % 11.6-14.6 [facility] Erythrocyte distribution wid th standard deviationOrdered By: Armida Mason on 11-06-2023 Erythrocyte distribution width (RBC) [Entitic vol] 47.7 fL 35.1-43.9 [facility] Hematocrit Auto (Bld) [Volum e fraction]Ordered By: Armida Mason on 11-06-2023 Hematocrit (Bld) [Volume fraction] 33.9 % 37-47 [facility] Immature granulocytes/100 WB C Auto (Bld)Ordered By: Armida Mason on 11-06-2023 Immature granulocytes/100 WBC (Bld) 0.400 % 0.0-0.9 [facility] Comment on above: IG% - Immature Granu locytes (promyelocytes, myelocytes and metamyelocytes) > 1% indicates that a LEFT SHIFT is Present. Laboratory - Chemistry and C hemistry - challengeOrdered By: Armida Mason on 11-06-2023 CO2 [Moles/Vol] 27.0 mmol/L 21.0-32.0 [facility] Urea nitrogen/Creatinine [Mass ratio] 23.6 mg/mg 10-20 [facility] Laboratory - Hematology and Cell countsOrdered By: Armida Mason on 11-06-2023 MCH (RBC) [Entitic mass] 31.7 pg 27.0-32.0 [facility] MCHC (RBC) [Mass/Vol] 32.4 g/dL 32-36 [facility] Nucleated RBC/100 WBC (Bld) [Ratio] 0 % 0-5 [facility] Platelets (Bld) [#/Vol] 225 10*3/uL 150-450 [facility] Laboratory - Microbiology an d Antimicrobial susceptibilityOrdered By: Armida Mason on 11-06-2023 SARS-CoV-2 (COVID-19) RNA KOKO+probe Ql (Unsp spec) [facility] No Panel InformationOrdered By: Armida Mason on 11-06-2023 Estimated Creatinine Clearance Calc 26.50 ml/min [facility] Estimated GFR (MDRD) Amer 46 mL/min >60 [facility] Comment on above: GFR Calc Estimated GFR (MDRD) Non-Af Amer 38 mL/min >60 [facility] Comment on above: Non- GFR Calc Troponin I High Sensitivity 10 pg/mL 3.0-54.0 [facility] Comment on above: Please Note: New Neli t Units and Gender Specific Reference Ranges. For more information see Policy Stat Procedure [place] High Sensitivity Troponin (TNIH) and attachments. Platelet mean volume Rui-Ec ker (Bld) [Entitic vol]Ordered By: Armida Mason on 11-06-2023 Platelet mean volume (Bld) [Entitic vol] 9.8 fL 6.2-12.0 [facility] RBC Auto (Bld) [#/Vol]Ordere d By: Armida Mason on 11-06-2023 RBC (Bld) [#/Vol] 3.47 10*6/uL 4.2-5.4 [facility] Serum or plasma calcium ashley urement (mass/volume)Ordered By: Armida Mason on 11-06-2023 Calcium [Mass/Vol] 9.4 mg/dL 8.5-10.1 [facility] Serum or plasma creatinine m easurement (mass/volume)Ordered By: Armida Mason on 11-06-2023 Creatinine [Mass/Vol] 1.40 mg/dL 0.55-1.02 [facility] Comment on above: The validity of the calculated GFR & GFRAA in patients over 70 years has not been determined. Clinical correlation is essential. Serum or plasma urea nitroge n measurement (mass/volume)Ordered By: Armida Mason on 11-06-2023 Urea nitrogen [Mass/Vol] 33 mg/dL 7-18 [facility] Thin prep Papanicolaou smear with manual screeningOrdered By: Armida Mason on 11-06-2023 Thin prep Papanicolaou smear with manual screening 4 5-15 [facility] NM HEPATOBILIARY W EF AND/OR RXon 07-08-2023 [facility] No Panel Informationon 04-01 [facility] No Panel Informationon 03-08 [facility] XR CHEST 2V FRONTAL/LATon [facility] DBT Breast - bilateral scree ningon 01-06-2023 IMPRESSION: BENIGN F INDING There is no mammographic evidence of malignancy. A 1 year screening mammogram is recommended. Simran Laughlin M.D. ch/meghan:01/06/2023 16:13:36 Overhead Worker(s): RT Lidia(R)(M), [facility] letter sent: Normal over 40 Mammogram BI-RADS: [...] Health, Family Medicine, and Medical/Surgical Oncology, the [facility] has carefully reviewed the data and reached [...] their providers when to stop screening mammograms. Laborer Yard: Meghan Transcribe Date/Time: Jan 05 2023 3:29P Dictated by: SIMRAN LAUGHLIN MD This examination was interpreted and the report reviewed and electronically signed by: SIMRAN LAUGHLIN MD on Jan 06 2023 4:13PM [facility] DIVISION OF RADIOLOGY * * *Final Report* * * DATE OF EXAM: Jan 05 2023 3:33PM [facility] 0582 - [facility] SCREENING W MICHELLE / PROCEDURE REASON: Encounter for screening mammogram for breast cancer * * * * Physician Interpretation * * * * RESULT: #[id number] - NICOLE SCREENING W MICHELLE BILATERAL DIGITAL [...] dated: 08/18/2021 mammogram, 07/30/2020 mammogram - [facility], 07/18/2019 mammogram, and 08/03/2018 mammogram - The [...] RADIOLOGY Provider, [facility] - 01/06/2023 * * *Final Report* * * DATE OF EXAM: Jan 05 2023 3:33PM SSW 0582 - NICOLE SCREENING W MICHELLE / PROCEDURE REASON: Encounter for screening mammogram for breast cancer * * * * Physician Interpretation * * * * RESULT: #[id number] - NICOLE SCREENING W MICHELLE BILATERAL DIGITAL [...] dated: 08/18/2021 mammogram, 07/30/2020 mammogram - [facility], 07/18/2019 mammogram, and 08/03/2018 mammogram - [facility]. The tissue of both [...] is recommended. Simran Laughlin M.D., ch/meghan:01/06/2023 16:13:36 Overhead Worker(s): RT Lidia(Renny)(M), [facility] letter sent: Normal over 40 Mammogram BI-RADS: [...] Health, Family Medicine, and Medical/Surgical Oncology, the [facility] has carefully reviewed the data and reached [...] their providers when to stop screening mammograms. Laborer Yard: Meghan Transcribe Date/Time: Jan 05 2023 3:29P Dictated by: SIMRAN LAUGHLIN MD This examination was interpreted and the report reviewed and electronically signed by: SIMRAN LAUGHLIN MD on Jan 06 2023 4:13PM EST [facility] DBT Breast - bilateral scree ningOrdered By: Ccf Provider on 01-06-2023 [facility] DBT Breast - bilateral scree ningon 01-05-2023 Radiology Study observation (narrative) [facility] NICOLE SCREENING W TOMOon 01-05 [facility] US KIDNEY/BLADDERon 10-08-20 [facility] UA DIP, URINE (POC)on 2021 BILIRUBIN UA (POCT) Negative Negative [facility] CLARITY UA (POCT) Cloudy [facility] COLOR UA (POCT) Yellow [facility] GLUCOSE UA (POCT) Negative Negative mg/dL [facility] HEMOGLOBIN/BLOOD UA (POCT) Small Abnormal Negative [facility] KETONE UA (POCT) Trace Negative mg/dL [facility] LEUKOCYTES UA (POCT) Small Abnormal Negative [facility] NITRITE UA (POCT) Positive Abnormal Negative [facility] PH UA (POCT) 5.5 4.5 - 8.0 [facility] Protein Ql (U) 30 mg/dL Abnormal Negative mg/dL [facility] SPECIFIC GRAVITY UA (POCT) 1.020 1.005 - 1.030 [facility] UROBILINOGEN UA (POCT) 0.2 E.U./dL Ophelia l E.U./dL [facility] CBC W Auto Differential pane l (Bld)on 09-11-2022 Basophils (Bld) [#/Vol] 0.03 10*3/uL <0.11 k/uL [facility] Basophils/100 WBC (Bld) 0.6 % [facility] Differential cell count method Nom (Bld) Auto [facility] Eosinophils (Bld) [#/Vol] 0.16 10*3/uL <0.46 k/uL [facility] Eosinophils/100 WBC (Bld) 3.3 % [facility] Erythrocyte distribution width (RBC) [Ratio] 13.3 % 11.5 - 15.0 % [facility] Hematocrit (Bld) [Volume fraction] 36.6 % 36.0 - 46.0 % [facility] Hemoglobin (Bld) [Mass/Vol] 11.9 g/dL 11.5 - 15.5 g/dL [facility] Immature granulocytes (Bld) [#/Vol] <0.10 k/uL [facility] Immature granulocytes/100 WBC (Bld) 0.2 % [facility] Lymphocytes (Bld) [#/Vol] 2.10 10*3/uL 1.00 - 4.00 k/uL [facility] Lymphocytes/100 WBC (Bld) 43.8 % [facility] MCH (RBC) [Entitic mass] 31.8 pg 26.0 - 34.0 pg [facility] MCHC (RBC) [Mass/Vol] 32.5 g/dL 30.5 - 36.0 g/dL [facility] MCV (RBC) [Entitic vol] 97.9 fL 80.0 - 100.0 fL [facility] Monocytes (Bld) [#/Vol] 0.50 10*3/uL <0.87 k/uL [facility] Monocytes/100 WBC (Bld) 10.4 % [facility] Neutrophils (Bld) [#/Vol] 2.00 10*3/uL 1.45 - 7.50 k/uL [facility] Neutrophils/100 WBC (Bld) 41.7 % [facility] Nucleated RBC (Bld) [#/Vol] <0.01 k/uL [facility] Nucleated RBC/100 WBC (Bld) [Ratio] 0.0 /100 WBC [facility] Platelet mean volume (Bld) [Entitic vol] 9.9 fL 9.0 - 12.7 fL [facility] Platelets (Bld) [#/Vol] 171 10*3/uL 150 - 400 k/uL [facility] RBC (Bld) [#/Vol] 3.74 10*6/uL Low 3.90 - 5.20 m/uL [facility] WBC (Bld) [#/Vol] 4.80 10*3/uL 3.70 - 11.00 k/uL [facility] CBC W Auto Differential pane l (Bld)on 04-17-2022 Abs Immature Gran <0.03 <0.10 k/uL [facility] Basophils (Bld) [#/Vol] 10*3/uL <0.11 k/uL [facility] Basophils/100 WBC (Bld) 0.6 % [facility] Differential cell count method Nom (Bld) Auto [facility] Eosinophils (Bld) [#/Vol] 0.08 10*3/uL <0.46 k/uL [facility] Eosinophils/100 WBC (Bld) 2.2 % [facility] Erythrocyte distribution width (RBC) [Ratio] 13.0 % 11.5 - 15.0 % [facility] Hematocrit (Bld) [Volume fraction] 31.7 % Low 36.0 - 46.0 % [facility] Hemoglobin (Bld) [Mass/Vol] 10.4 g/dL Low 11.5 - 15.5 g/dL [facility] Immature Gran % 0.3 % [facility] Lymphocytes (Bld) [#/Vol] 1.40 10*3/uL 1.00 - 4.00 k/uL [facility] Lymphocytes/100 WBC (Bld) 39.1 % [facility] MCH (RBC) [Entitic mass] 32.4 pg 26.0 - 34.0 pg [facility] MCHC (RBC) [Mass/Vol] 32.8 g/dL 30.5 - 36.0 g/dL [facility] MCV (RBC) [Entitic vol] 98.8 fL 80.0 - 100.0 fL [facility] Monocytes (Bld) [#/Vol] 0.40 10*3/uL <0.87 k/uL [facility] Monocytes/100 WBC (Bld) 11.2 % [facility] Neutrophils (Bld) [#/Vol] 1.67 10*3/uL 1.45 - 7.50 k/uL [facility] Neutrophils/100 WBC (Bld) 46.6 % [facility] Nucleated RBC (Bld) [#/Vol] 10*3/uL <0.01 k/uL [facility] Nucleated RBC/100 WBC (Bld) [Ratio] 0.0 /100 WBC [facility] Platelet mean volume (Bld) [Entitic vol] 10.3 fL 9.0 - 12.7 fL [facility] Platelets (Bld) [#/Vol] 194 10*3/uL 150 - 400 k/uL [facility] RBC (Bld) [#/Vol] 3.21 10*6/uL Low 3.90 - 5.20 m/uL [facility] WBC (Bld) [#/Vol] 3.58 10*3/uL Low 3.70 - 11.00 k/uL [facility] RETIC COUNTon 04-17-2022 Reticulocytes (Bld) [#/Vol] 0.09722 10*3/uL 0.018 - 0.100 M/uL [facility] Reticulocytes (Bld) [#/Vol]o n 04-17-2022 Reticulocytes/100 RBC (Bld) 0.9 % 0.4 - 2.0 % [facility] CNTHERAPYon 02-03-2022 CNTHERAPY OT/PT/Speech Visit ( OTC) ZENAIDA EVANS ([id number]) 1935 F MAL Date Time Provider Department 02/03/22 3:45 PM LAVERNE HELMS [facility] Date Time Provider Department Center 02/03/2022 3:45 PM [id number] HELMS [facility] Reason for Visit: Occupational Therapy [504] Primary [...] mouth two times a week. - Lmefol Hh-lhiyzr-gmN26-algal (CEREFOLIN NAC, ALGAL OIL,) 6 mg-600 mg- [...] by this patient by: PATIENT Tika Mahmood (Candy Cooker Helper) Annotated image of OT HAND WRIST STRENGTHENING last updated by DEBORAH Saleem on 02/03/2022 4:00 PM [facility] CNTHERAPYon 01-27-2022 CNTHERAPY OT/PT/Speech Visit ( [facility]) ZENAIDA EVANS ([id number]) 1935 [place]UN[place] Date Time Provider Department 01/27/22 11:45 AM LAVERNE HELMS Date Time Provider Department Center 01/27/2022 11:45 AM [id number] HELMS [facility] Reason for Visit: Occupational Therapy [...] mouth two times a week. - Lmefol Lr-phvxyz-vrC99-algal (CEREFOLIN NAC, ALGAL OIL,) 6 mg-600 mg- [...] by this patient by: PATIENT Tika Mahmood (Candy Cooker Helper) Normal [facility] CNTHERAPYon 01-13-2022 CNTHERAPY OT/PT/Speech Visit ( [facility]) ZENAIDA EVANS ([id number]) 1935 [place]UNEZ Date Time Provider Department 01/13/22 3:45 PM LAVERNE HELMS [facility] Date Time Provider Department Center 01/13/2022 3:45 PM [id number] HELMS [facility] Reason for Visit: Occupational Therapy [504] Primary [...] mouth two times a week. - Lmefol Hb-rvdwlb-hdO62-algal (CEREFOLIN NAC, ALGAL OIL,) 6 mg-600 mg- [...] by this patient by: PATIENT Tika Mahmood (Candy Cooker Helper) Annotated image of OT HAND POST-OP EX'S PG6-THUMB last updated by Laverne Helms OT/Cathryn on 01/13/2022 4:03 PM [facility] CNTHERAPYon 01-06-2022 CNTHERAPY OT/PT/Speech Visit ( [facility]) ZENAIDA EVANS ([id number]) 1935 F MAL Date Time Provider Department 01/06/22 2:15 PM LAVERNE HELMS [facility] Date Time Provider Department Center 01/06/2022 2:15 PM [id number] HELMS [facility] Reason for Visit: Occupational Therapy [504] Primary [...] mouth two times a week. - Lmefol Er-kitcjh-nyU20-algal (CEREFOLIN NAC, ALGAL OIL,) 6 mg-600 mg- [...] by this patient by: PATIENT Tika Mahmood (Candy Cooker Helper) Normal [facility] DBT Breast - bilateral beckie annapriscilla 08-18-2021 IMPRESSION: BENIGN F INDING There is no mammographic evidence of malignancy. A 1 year screening mammogram is recommended. Zoya Patel M.D. pt/penrad:08/18/2021 12:22:56 Overhead Worker(s): RT Renny Treviño, [facility] letter sent: Normal over 40 Mammogram BI-RADS: [...] Health, Family Medicine, and Medical/Surgical Oncology, the [facility] has carefully reviewed the data and reached [...] their providers when to stop screening mammograms. Laborer Yard: Meghan Transcribe Date/Time: Aug 18 2021 11:33A Dictated by: ZOYA PATEL MD This examination was interpreted and the report reviewed and electronically signed by: ZOYA PATEL MD on Aug 18 2021 12:22PM [facility] DIVISION OF RADIOLOGY * * *Final Report* * * DATE OF EXAM: Aug 18 2021 11:50AM W 0582 - [facility] SCREENING W MICHELLE / PROCEDURE REASON: Encounter for screening mammogram for malignant neoplasm of breast * * * * Physician Interpretation * * * * RESULT: #[id number] - NICOLE SCREENING W MICHELLE BILATERAL DIGITAL [...] to exams dated: 07/30/2020 mammogram - [facility], 07/18/2019 mammogram, 08/03/2018 mammogram - [facility], 09/17/2017 mammogram - [facility], 08/27/2015 mammogram, and 09/17/2014 mammogram - [facility]. The tissue of both [...] RADIOLOGY Provider, [facility] - 08/18/2021 * * *Final Report* * * DATE OF EXAM: Aug 18 2021 11:50AM SSW 0582 - [facility] SCREENING W MICHELLE / PROCEDURE REASON: Encounter for screening mammogram for malignant neoplasm of breast * * * * Physician Interpretation * * * * RESULT: #[id number] - [facility] SCREENING W MICHELLE BILATERAL DIGITAL SCREENING MAMMOGRAM [...] to exams dated: 07/30/2020 mammogram - [facility], 07/18/2019 mammogram, 08/03/2018 mammogram - [facility], 09/17/2017 mammogram - [facility], 08/27/2015 mammogram, and 09/17/2014 mammogram - [facility]. The tissue of both [...] is recommended. Zoya Patel M.D. pt/penrad:08/18/2021 12:22:56 Overhead Worker(s): RT Renny Treviño, [facility] letter sent: Normal over 40 Mammogram BI-RADS: [...] Health, Family Medicine, and Medical/Surgical Oncology, the [facility] has carefully reviewed the data and reached [...] their providers when to stop screening mammograms. Laborer Yard: Meghan Transcribe Date/Time: Aug 18 2021 11:33A Dictated by: ZOYA PATEL MD This examination was interpreted and the report reviewed and electronically signed by: ZOYA PATEL MD on Aug 18 2021 12:22PM [facility] Radiology Study observation (narrative) [facility] DBT Breast - bilateral scree ningOrdered By: Ccf Provider on 08-18-2021 [facility] XR Wrist - left 4 Viewson IMPRESSION: Findings are suggestive of mild degenerative changes of the left wrist with chondrocalcinosis. Laborer Yard: RUDY Transcribe Date/Time: Dec 24 2020 1:39P Dictated by : OMEGA RASCON MD This examination was interpreted and the report reviewed and electronically signed by: OMEGA RASCON MD on Dec 24 2020 1:43PM [facility] DIVISION OF RADIOLOGY * * *Final Report* [...] chondrocalcinosis is present. DIVISION OF RADIOLOGY Provider, [facility] Robin [facility] - 12/24/2020 * * *Final Report* [...] changes of the left wrist with chondrocalcinosis. Laborer Yard: PSCRizwan Transcribe Date/Time: Dec 24 2020 1:39P Dictated by : OMEGA RASCON MD This examination was interpreted and the report reviewed and electronically signed by: OMEGA RASCON MD on Dec 24 2020 1:43PM EST [facility] Radiology Study observation (narrative) [facility] XR Wrist - left 4 ViewsOrder ed By: Cc Provider on 12-24-2020 [facility] DBT Breast - bilateral beckie paula 07-30-2020 IMPRESSION: BENIGN F INDING There is no mammographic evidence of malignancy. A 1 year screening mammogram is recommended. Kristyn olmedo/meghan:07/30/2020 18:28:30 Overhead Worker(s): RT Manuel(R)(M), [facility] letter sent: Normal over 40 Mammogram BI-RADS: [...] Health, Family Medicine, and Medical/Surgical Oncology, the [facility] has carefully reviewed the data and reached [...] their providers when to stop screening mammograms. Laborer Yard: Meghan Transcribe Date/Time: Jul 30 2020 11:30A Dictated by: KRISTYN WAGNER MD This examination was interpreted and the report reviewed and electronically signed by: KRISTYN WAGNER MD on Jul 30 2020 6:28PM [facility] DIVISION OF RADIOLOGY * * *Final Report* * * DATE OF EXAM: Jul 30 2020 11:55AM SSW 0582 - NICOLE SCREENING W MICHELLE / PROCEDURE REASON: multiple diagnoses * * * * Physician Interpretation * * * * RESULT: #[id number] - NICOLE SCREENING W MICHELLE BILATERAL DIGITAL [...] [facility] - [facility] [place], 09/17/2017 mammogram - [facility], and 09/15/2016 mammogram - [facility]. There are scattered fibroglandular [...] RADIOLOGY Provider, [facility] - 07/30/2020 * * *Final Report* * * DATE OF EXAM: Jul 30 2020 11:55AM SSW 0582 - [facility] SCREENING W MICHELLE / PROCEDURE REASON: multiple diagnoses * * * * Physician Interpretation * * * * RESULT: #[id number] - [facility] SCREENING W MICHELLE BILATERAL DIGITAL SCREENING MAMMOGRAM [...] dated: 07/18/2019 mammogram, 08/03/2018 mammogram - [facility] [place], 09/17/2017 mammogram - [facility], and 09/15/2016 mammogram - [facility]. There are scattered fibroglandular elements [...] screening mammogram is recommended. Kristyn olmedo/meghan:07/30/2020 18:28:30 Overhead Worker(s): RT Manuel(R)(M), [facility] letter sent: Normal over 40 Mammogram BI-RADS: [...] Health, Family Medicine, and Medical/Surgical Oncology, the [facility] has carefully reviewed the data and reached [...] their providers when to stop screening mammograms. Laborer Yard: Meghan Transcribe Date/Time: Jul 30 2020 11:30A Dictated by: KRISTYN WAGNER MD This examination was interpreted and the report reviewed and electronically signed by: KRISTYN WAGNER MD on Jul 30 2020 6:28PM EST [facility] Radiology Study observation (narrative) [facility] DBT Breast - bilateral scree ningOrdered By: Stella Provider on 07-30-2020 [facility] BRANDIOVon 07-10-2020 CNOV Office Visit (NEADFV ) ZENAIDA EVANS ([id number]) 1935 F [facility] Date Time Provider Department 07/10/20 11:00 AM AARTI RECINOS During your visit today, we recorded the following information about you: Temperature Pulse Blood pressure Weight 98.5 degrees 77/minute 172/71 66.5 kg Aarti Recinos MD 07/10/2020 12:24 PM Signed [facility] for General Neurology Follow up/ Established patient [...] and the patient was taken to the [facility] ED. In the ED: - VS: BP [...] of her BP. Upon arrival on the [facility], the patient was alert and oriented. She [...] female who presented to neurology clinic w [facility] breast cancer, collagenous colitis, uncontoled HTN, hyperlipidemia, [...] 03/13/2011 no retinopathy detected -both eyes - [facility] - return in 1 year - [...] of 07/05/20 EGD Result Value Ref Range Social Worker Clinical A31 Gastrointestinal Endoscopy Patient Name: Zenaida Evans [...] short acting medicines. Referring Provider: SUSANNAH CLEMENTE [[id number]] Allergies As of Date: 07/10/2020 Noted Allergy [...] weakness [R29.898] Essential hypertension [I10] Atherosclerosis of [place] coronary artery of [place] heart without angina pectoris [I25.10] Hypothyroidism, unspecified type [E03.9] Malignant neoplasm of lower-outer quadrant of right female breast, unspecified estrogen receptor status (HCC) [C50.511] Basal cell carcinoma, face [C44.310] Order(s):MRI BRAIN WO IVCON [[id number]] Order #: [id number] FUTURE Prescriptions as of 07/10/2020 Sig: COLCHICINE [...] gait [R26.9] 09/09/2015 Vaginal atrophy [N95.2] Dyspareunia [EHY8554] Seborrheic dermatitis [L21.9] 11/20/2015 Vaginismus [N94.2] Elevated [...] Status:Closed by AARTI RECINOS MD on 07/10/20 [facility] PROGRESSon 07-10-2020 PROGRESS HNO ID: [id number] Author: Aarti Recinos Service: ? Author Type: Physician Type: Progress Notes Filed: 07/10/2020 12:24 PM Note Text: [facility] for General Neurology Follow up/ Established patient [...] and the patient was taken to the [facility] ED. In the ED: - VS: BP [...] of her BP. Upon arrival on the [facility], the patient was alert and oriented. She [...] female who presented to neurology clinic w [facility] breast cancer, collagenous colitis, uncontoled HTN, hyperlipidemia, [...] 03/13/2011 no retinopathy detected -both eyes - [facility] - return in 1 year - [...] of 07/05/20 EGD Result Value Ref Range Social Worker Clinical A31 Gastrointestinal Endoscopy Patient Name: Zenaida Evans [...] care): 40 minutes Aarti Recinos MD Normal [facility] Basic Metabolic Profile (BMP )on 10-18-2019 Calcium [Mass/Vol] 8.0 mg/dL Low 8.5-10.1 [facility] Comment on above: Performed By: #### L 500.2500 ####[facility] [address] [place], [address] Chloride [Moles/Vol] 113 mmol/L High 98-107 [facility] Comment on above: Performed By: #### L 500.2500 ####[facility] [address] [place], [address] CO2 [Moles/Vol] 26.0 mmol/L Normal 21.0-32.0 [facility] Comment on above: Performed By: #### L 500.2500 ####[facility] [address] [place], [address] Creatinine [Mass/Vol] 1.13 mg/dL High 0.55-1.02 [facility] Comment on above: Result Comment: The validity of the calculated GFR AND GFRAA in patients over 70 years has not been determined. Clinical correlation is essential. Performed By: #### L 500.2500 ####[facility] [address] [place], [place], [address] EST GFR - AA 59 mL/min Low >60 [facility] Comment on above: Result Comment: Afri can Spanish GFR Calc Performed By: #### L 500.2500 ####[facility] [address] [place], [address] Estimated CRCL 35.31 ml/min Normal [facility] Comment on above: Performed By: #### L 500.2500 ####[facility] [address] [place], [address] GAP 4 Low 5-15 [facility] Comment on above: Performed By: #### L 500.2500 ####[facility] [address] [place], [address] GFR/1.73 sq M predicted among non-blacks MDRD (S/P/Bld) [Vol rate/Area] 49 mL/min/{1.73_m2} Low >60 [facility] Comment on above: Result Comment: Non- GFR Calc Performed By: #### L 500.2500 ####[facility] [address] [place], [address] Glucose [Mass/Vol] 107 mg/dL High 74-106 [facility] Comment on above: Result Comment: Fast ing Glucose result from 100 to 125 mg/dL suggests IMPAIRED HOMEOSTASIS per A.D.A. criteria. Please note revised GLUCOSE reference range effective 2017. Performed By: #### L 500.2500 ####[facility] [address] [place], [address] Potassium [Moles/Vol] 4.2 mmol/L Normal 3.5-5.1 [facility] Comment on above: Performed By: #### L 500.2500 ####[facility] [address] [place], [address] Sodium [Moles/Vol] 143 mmol/L Normal 136-145 [facility] Comment on above: Performed By: #### L 500.2500 ####[facility] [address] [place], [address] Urea nitrogen [Mass/Vol] 19 mg/dL High 7-18 [facility] Comment on above: Performed By: #### L 500.2500 ####[facility] [address] [place], [address] Urea nitrogen [Mass/Vol] 16.8 RATIO Normal 10-20 [facility] Comment on above: Performed By: #### L 500.2500 ####[facility] [address] [place], [address] Bedside Glucoseon 10-18-2019 BEDSIDE GLU 97 mg/dL Normal 70-110 [facility] Comment on above: Result Comment: CORNELIA GRANDE OF PATIENT CARE PER NURSING PROTOCOL Performed By: #### L 501.080 ####[facility] LaboratoryPoint of [address] [place] [address] Brain/Head without Contrasto n 10-18-2019 Brain/Head without Contrast [facility] Imaging Services [address] [place] [address] Brain/Head without Contrast MR#: [id number] Acct: [id number] Name: ZENAIDA EVANS Rep #: [id number] : 1935 F 84 From: Hossein Castro MD PCP: Susannah Clemente MD Status: ADM IN Study: Brain/Head without Contrast Date of Exam: 10/17/19 Exam# [id number] Ordering Dr: Serg Pinto MD ADDENDUM by [...] CC: Susannah Clemente MD; Serg Pinto MD Laborer Yard: Signed Normal [facility] CBC W/Diff, Automatedon 01-0 Absolute Neut 3.6 X10 3/uL Normal 2.0-7.7 [facility] Comment on above: Performed By: #### L 100.0100 ####[facility] [address] [place], [address] Basophils/100 WBC (Bld) 0.4 % Normal 0-1 [facility] Comment on above: Performed By: #### L 100.0100 ####[facility] [address] [place], [address] Eosinophils/100 WBC (Bld) 3.0 % Normal 0-5 [facility] Comment on above: Performed By: #### L 100.0100 ####[facility] [address] [place], [address] Erythrocyte distribution width (RBC) [Ratio] 14.2 % Normal 11.6-14.6 [facility] Comment on above: Performed By: #### L 100.0100 ####[facility] [address] [place], [address] Hematocrit (Bld) [Volume fraction] 31.7 % Low 37-47 [facility] Comment on above: Performed By: #### L 100.0100 ####[facility] [address] [place], [address] Hemoglobin (Bld) [Mass/Vol] 10.2 g/dL Low 12.0-15.0 [facility] Comment on above: Performed By: #### L 100.0100 ####[facility] [address] [place], [address] IM GRAN % 0.400 % Normal 0.0-0.9 [facility] Comment on above: Result Comment: IG% - Immature Granulocytes (promyelocytes, myelocytes and metamyelocytes) > 1% indicates that a LEFT SHIFT is Present. Performed By: #### L 100.0100 ####[facility] [address] [place], [address] Lymphocytes (Bld) [#/Vol] 0.94 X10 3/uL Normal 0.83-4.51 [facility] Comment on above: Performed By: #### L 100.0100 ####[facility] [address] [place], [address] Lymphocytes/100 WBC (Bld) 17.6 % Low 19-41 [facility] Comment on above: Performed By: #### L 100.0100 ####[facility] [address] [place], [address] MCH (RBC) [Entitic mass] 33.1 pg High 27.0-32.0 [facility] Comment on above: Performed By: #### L 100.0100 ####[facility] [address] [place], [address] MCHC (RBC) [Mass/Vol] 32.2 g/dL Normal 32-36 [facility] Comment on above: Performed By: #### L 100.0100 ####[facility] [address] [place], [address] MCV (RBC) [Entitic vol] 102.9 fL High 81-99 [facility] Comment on above: Performed By: #### L 100.0100 ####[facility] [address] [place], [address] Monocytes/100 WBC (Bld) 11.1 % High 0-10 [facility] Comment on above: Performed By: #### L 100.0100 ####[facility] [address] [place], [address] Neutrophils/100 WBC (Bld) 67.5 % Normal 47-70 [facility] Comment on above: Performed By: #### L 100.0100 ####[facility] [address] [place], [address] NRBC, FLAGGED 0 % Normal 0-5 [facility] Comment on above: Performed By: #### L 100.0100 ####[facility] [address] [place], [address] Platelet mean volume (Bld) [Entitic vol] 9.7 fL Normal 6.2-12.0 [facility] Comment on above: Performed By: #### L 100.0100 ####[facility] [address] [place], [address] Platelets (Bld) [#/Vol] 161 10*3/uL Normal 150-450 [facility] Comment on above: Performed By: #### L 100.0100 ####[facility] [address] [place], [address] RBC (Bld) [#/Vol] 3.08 M/mm3 Low 4.2-5.4 [facility] Comment on above: Performed By: #### L 100.0100 ####[facility] [address] [place], [address] RDW SD 53.5 fl High 35.1-43.9 [facility] Comment on above: Performed By: #### L 100.0100 ####[facility] [address] [place], [address] WBC (Bld) [#/Vol] 5.3 10*3/uL Normal 4.4-11.0 [facility] Comment on above: Performed By: #### L 100.0100 ####[facility] [address] [place], [address] CTA Head AND Neck W/ Contras ton 10-18-2019 CTA Head AND Neck W/ Contrast [facility] Imaging Services [address] [place] [address] CTA Head AND Neck W/ Contrast MR#: [id number] Acct: [id number] Name: ZENAIDA EVANS Rep #: [id number] : 1935 F 84 From: Triny Villanueva MD PCP: Susannah Clemente MD Status: ADM IN Study: CTA Head AND Neck W/ Contrast Date of Exam: 10/17/19 Exam# [id number] Ordering Dr: Serg Pinto MD ADDENDUM by Triny Villanueva MD [...] 22:36 EST Tel , Service support , 10/17/190 Date cc: Susannah Clemente MD; Serg Pinto [...] CC: Susannah Clemente MD; Serg Pinto MD Laborer Yard: Signed Normal [facility] Discharge Instructionon Discharge Instruction [facility] Medical Records Department [address] [place] [address] Instructions for Home/Discharge Instructions 10/18/19 1245 MR#: [id number] Acct: [id number] Name: ZENAIDA EVANS Rep #: [id number] : 1935 84 From: Migel Sharma MD [...] Killian D.O.; Susannah Clemente MD Signed Normal [facility] Basic Metabolic Profile (BMP )on 10-17-2019 Calcium [Mass/Vol] 8.0 mg/dL Low 8.5-10.1 [facility] Comment on above: Performed By: #### L 501.5200, L500.2500 #### [facility] Laboratory [address] [place], [address] Chloride [Moles/Vol] 111 mmol/L High 98-107 [facility] Comment on above: Performed By: #### L 501.5200, L500.2500 #### [facility] Laboratory [address] [place], [address] CO2 [Moles/Vol] 28.0 mmol/L Normal 21.0-32.0 [facility] Comment on above: Performed By: #### L 501.5200, L500.2500 #### [facility] Laboratory [address] [place], [address] Creatinine [Mass/Vol] 0.94 mg/dL Normal 0.55-1.02 [facility] Comment on above: Result Comment: The validity of the calculated GFR AND GFRAA in patients over 70 years has not been determined. Clinical correlation is essential. Performed By: #### L 501.5200, L500.2500 #### [facility] Laboratory [address] [place], [address] EST GFR - AA 73 mL/min Normal >60 [facility] Comment on above: Result Comment: Afri can Spanish GFR Calc Performed By: #### L 501.5200, L500.2500 #### [facility] [address] [place], [address] Estimated CRCL 42.45 ml/min Normal [facility] Comment on above: Performed By: #### L 501.5200, L500.2500 #### [facility] Laboratory [address] [place], [address] GAP 3 Low 5-15 [facility] Comment on above: Performed By: #### L 501.5200, L500.2500 #### [facility] Laboratory [address] [place], [address] GFR/1.73 sq M predicted among non-blacks MDRD (S/P/Bld) [Vol rate/Area] 60 mL/min/{1.73_m2} Normal >60 [facility] Comment on above: Result Comment: Non- GFR Calc Performed By: #### L 501.5200, L500.2500 #### [facility] [address] [place], [address] Glucose [Mass/Vol] 101 mg/dL Normal 74-106 [facility] Comment on above: Result Comment: Fast ing Glucose result from 100 to 125 mg/dL suggests IMPAIRED HOMEOSTASIS per A.D.A. criteria. Please note revised GLUCOSE reference range effective 2017. Performed By: #### L 501.5200, L500.2500 #### [facility] [address] [place], [address] Potassium [Moles/Vol] 4.2 mmol/L Normal 3.5-5.1 [facility] Comment on above: Performed By: #### L 501.5200, L500.2500 #### [facility] [address] [place], [address] Sodium [Moles/Vol] 142 mmol/L Normal 136-145 [facility] Comment on above: Performed By: #### L 501.5200, L500.2500 #### [facility] [address] [place], [address] Urea nitrogen [Mass/Vol] 20.1 RATIO High 10-20 [facility] Comment on above: Performed By: #### L 501.5200, L500.2500 #### [facility] [address] [place], [address] Urea nitrogen [Mass/Vol] 19 mg/dL High 7-18 [facility] Comment on above: Performed By: #### L 501.5200, L500.2500 #### [facility] [address] [place], [address] Bedside Glucoseon 10-17-2019 BEDSIDE GLU 121 mg/dL High 70-110 [facility] Comment on above: Result Comment: CORNELIA GRANDE OF PATIENT CARE PER NURSING PROTOCOL Performed By: #### L 501.080 #### [facility] Laboratory Point of Care [address] [place] [address] Brain/Head without Contrasto n 10-17-2019 Brain/Head without Contrast [facility] Imaging Services [address] [place] [address] Brain/Head without Contrast MR#: [id number] Acct: [id number] Name: ZENAIDA EVANS Rep #: [id number] : 1935 F 84 From: Hossein Castro MD PCP: Susannah Clemente MD Status: ADM IN Study: Brain/Head without Contrast Date of Exam: 10/17/19 Exam# [id number] Ordering Dr: Migel Sharma MD STUDY: CT [...] CC: Migel Sharma MD; Susannah Clemente MD Laborer Yard: Signed Normal [facility] CBC W/Diff, Automatedon 12-3 Absolute Neut 3.4 X10 3/uL Normal 2.0-7.7 [facility] Comment on above: Performed By: #### L 100.0100 ####[facility] [address] [place], [address] Basophils/100 WBC (Bld) 0.6 % Normal 0-1 [facility] Comment on above: Performed By: #### L 100.0100 ####[facility] [address] [place], [address] Eosinophils/100 WBC (Bld) 3.0 % Normal 0-5 [facility] Comment on above: Performed By: #### L 100.0100 ####[facility] [address] [place], [address] Erythrocyte distribution width (RBC) [Ratio] 13.8 % Normal 11.6-14.6 [facility] Comment on above: Performed By: #### L 100.0100 ####[facility] [address] [place], [address] Hematocrit (Bld) [Volume fraction] 31.4 % Low 37-47 [facility] Comment on above: Performed By: #### L 100.0100 ####[facility] [address] [place], [address] Hemoglobin (Bld) [Mass/Vol] 10.2 g/dL Low 12.0-15.0 [facility] Comment on above: Performed By: #### L 100.0100 ####[facility] [address] [place], [address] IM GRAN % 0.200 % Normal 0.0-0.9 [facility] Comment on above: Result Comment: IG% - Immature Granulocytes (promyelocytes, myelocytes and metamyelocytes) > 1% indicates that a LEFT SHIFT is Present. Performed By: #### L 100.0100 ####[facility] [address] [place], [address] Lymphocytes (Bld) [#/Vol] 1.25 X10 3/uL Normal 0.83-4.51 [facility] Comment on above: Performed By: #### L 100.0100 ####[facility] [address] [place], [address] Lymphocytes/100 WBC (Bld) 23.8 % Normal 19-41 [facility] Comment on above: Performed By: #### L 100.0100 ####[facility] [address] [place], [address] MCH (RBC) [Entitic mass] 33.0 pg High 27.0-32.0 [facility] Comment on above: Performed By: #### L 100.0100 ####[facility] [address] [place], [address] MCHC (RBC) [Mass/Vol] 32.5 g/dL Normal 32-36 [facility] Comment on above: Performed By: #### L 100.0100 ####[facility] [address] [place], [address] MCV (RBC) [Entitic vol] 101.6 fL High 81-99 [facility] Comment on above: Performed By: #### L 100.0100 ####[facility] [address] [place], [address] Monocytes/100 WBC (Bld) 8.4 % Normal 0-10 [facility] Comment on above: Performed By: #### L 100.0100 ####[facility] [address] [place], [address] Neutrophils/100 WBC (Bld) 64.0 % Normal 47-70 [facility] Comment on above: Performed By: #### L 100.0100 ####[facility] [address] [place], [address] NRBC, FLAGGED 0 % Normal 0-5 [facility] Comment on above: Performed By: #### L 100.0100 ####[facility] [address] [place], [address] Platelet mean volume (Bld) [Entitic vol] 9.8 fL Normal 6.2-12.0 [facility] Comment on above: Performed By: #### L 100.0100 ####[facility] [address] [place], [address] Platelets (Bld) [#/Vol] 173 10*3/uL Normal 150-450 [facility] Comment on above: Performed By: #### L 100.0100 ####[facility] [address] [place], [address] RBC (Bld) [#/Vol] 3.09 M/mm3 Low 4.2-5.4 [facility] Comment on above: Performed By: #### L 100.0100 ####[facility] [address] [place], [address] RDW SD 51.3 fl High 35.1-43.9 [facility] Comment on above: Performed By: #### L 100.0100 ####[facility] [address] [place], [address] WBC (Bld) [#/Vol] 5.3 10*3/uL Normal 4.4-11.0 [facility] Comment on above: Performed By: #### L 100.0100 ####[facility] [address] [place], [address] Consultationon 10-17-2019 Consultation [facility] Medical Records Department [address] [place] [address] Consultation 10/16/19 0640 MR#: [id number] Acct: [id number] Name: ZENAIDA EVANS Rep #: [id number] : 1935 84 From: Armani Killian DO [...] by her primary care provider located in [place]. She is currently on multiple antihypertensive medications [...] leg Psychiatric History: No pertinent psych hx DRESS MARKER History: No pertinent DRESS MARKER history Lives: Spouse/ Significant Other Smoking Status: [...] () 1,000 mls @ 75 mls/hr IV .[id number] DINORAH Last Admin: 10/16/19 02:13 Dose: 75 mls/hr Documented by: Sodium Chloride () 250 mls @ 15 mls/hr IV .[id number] PRN PRN Reason: Saline Flush Sodium Chloride () 250 mls @ 15 mls/hr IV .[id number] PRN PRN Reason: Additional IVPB Infusion Sodium Chloride () 250 mls @ 15 mls/hr IV .[id number] PRN PRN Reason: Saline Flush Sodium Chloride () 250 mls @ 15 mls/hr IV .[id number] PRN PRN Reason: Additional IVPB Infusion Labetalol HCl (Trandate) 100 mg PO BID [facility] Levothyroxine Sodium (Synthroid) 88 mcg PO DAILY@0600 [facility] Losartan Potassium (Cozaar) 50 mg PO DAILY [facility] Morphine Sulfate () 1 - 2 mg [...] my perspective. This note was generated with Sphere 3dation software. It may contain incorrect words, spelling, and punctuation that were not noted in checking the note before signing. Code Visit Inpatient E AND M: [id number] Init Hosp L3 10/17/19 0736 Date Armani Killian DO Cosigner Signature (if applicable): Date CC: Armani Killian D.O.; Susannah Clemente MD Signed Normal [facility] Magnesiumon 10-17-2019 Magnesium [Mass/Vol] 1.6 mg/dL Normal 1.6-2.6 [facility] Comment on above: Performed By: #### L 501.5200, L500.2500 #### [facility] Laboratory [address] [place], [address] Basic Metabolic Profile (BMP )on 10-16-2019 Calcium [Mass/Vol] 8.0 mg/dL Low 8.5-10.1 [facility] Comment on above: Performed By: #### L 500.2500, L500.4100 ####[facility] [address] [place], [address] Chloride [Moles/Vol] 111 mmol/L High 98-107 [facility] Comment on above: Performed By: #### L 500.2500, L500.4100 ####[facility] [address] [place], [address] CO2 [Moles/Vol] 29.0 mmol/L Normal 21.0-32.0 [facility] Comment on above: Performed By: #### L 500.2500, L500.4100 ####[facility] [address] [place], [address] Creatinine [Mass/Vol] 1.18 mg/dL High 0.55-1.02 [facility] Comment on above: Result Comment: The validity of the calculated GFR AND GFRAA in patients over 70 years has not been determined. Clinical correlation is essential. Performed By: #### L 500.2500, L500.4100 ####[facility] [address] [place], [address] EST GFR - AA 56 mL/min Low >60 [facility] Comment on above: Result Comment: Afri can Spanish GFR Calc Performed By: #### L 500.2500, L500.4100 ####[facility] [address] [place], [address] Estimated CRCL 33.82 ml/min Normal [facility] Comment on above: Performed By: #### L 500.2500, L500.4100 ####[facility] [address] [place], [address] GAP 3 Low 5-15 [facility] Comment on above: Performed By: #### L 500.2500, L500.4100 ####[facility] [address] [place], [address] GFR/1.73 sq M predicted among non-blacks MDRD (S/P/Bld) [Vol rate/Area] 47 mL/min/{1.73_m2} Low >60 [facility] Comment on above: Result Comment: Non- GFR Calc Performed By: #### L 500.2500, L500.4100 ####[facility] [address] [place], [address] Glucose [Mass/Vol] 113 mg/dL High 74-106 [facility] Comment on above: Result Comment: Fast ing Glucose result from 100 to 125 mg/dL suggests IMPAIRED HOMEOSTASIS per A.D.A. criteria. Please note revised GLUCOSE reference range effective 2017. Performed By: #### L 500.2500, L500.4100 ####[facility] [address] [place], [address] Potassium [Moles/Vol] 4.6 mmol/L Normal 3.5-5.1 [facility] Comment on above: Performed By: #### L 500.2500, L500.4100 ####[facility] [address] [place], [address] Sodium [Moles/Vol] 143 mmol/L Normal 136-145 [facility] Comment on above: Performed By: #### L 500.2500, L500.4100 ####[facility] [address] [place], [address] Urea nitrogen [Mass/Vol] 25 mg/dL High 7-18 [facility] Comment on above: Performed By: #### L 500.2500, L500.4100 ####[facility] [address] [place], [address] Urea nitrogen [Mass/Vol] 21.2 RATIO High 10-20 [facility] Comment on above: Performed By: #### L 500.2500, L500.4100 ####[facility] [address] [place], [address] Calcium [Mass/Vol] 9.0 mg/dL Normal 8.5-10.1 [facility] Comment on above: Result Comment: Slig ht Lipemia, Result may be falsely increased. Performed By: #### L 500.2500, L501.4010 #### [facility] [address] [place], [address] Chloride [Moles/Vol] 111 mmol/L High 98-107 [facility] Comment on above: Performed By: #### L 500.2500, L501.4010 #### [facility] [address] [place], [address] CO2 [Moles/Vol] 27.0 mmol/L Normal 21.0-32.0 [facility] Comment on above: Result Comment: Slig ht Lipemia, Result may be falsely increased. Performed By: #### L 500.2500, L501.4010 #### [facility] [address] [place], [address] Creatinine [Mass/Vol] 1.46 mg/dL High 0.55-1.02 [facility] Comment on above: Result Comment: Slig ht Lipemia, Result may be falsely increased. The validity of the calculated GFR AND GFRAA in patients over 70 years has not been determined. Clinical correlation is essential. Performed By: #### L 500.2500, L501.4010 #### [facility] [address] [place], [address] EST GFR - AA 44 mL/min Low >60 [facility] Comment on above: Result Comment: Afri can Spanish GFR Calc Performed By: #### L 500.2500, L501.4010 #### [facility] [address] [place], [address] Estimated CRCL 24.15 ml/min Normal [facility] Comment on above: Performed By: #### L 500.2500, L501.4010 #### [facility] [address] [place], [address] GAP 6 Normal 5-15 [facility] Comment on above: Performed By: #### L 500.2500, L501.4010 #### [facility] [address] [place], [address] GFR/1.73 sq M predicted among non-blacks MDRD (S/P/Bld) [Vol rate/Area] 36 mL/min/{1.73_m2} Low >60 [facility] Comment on above: Result Comment: Non- GFR Calc Performed By: #### L 500.2500, L501.4010 #### [facility] [address] [place], [address] Glucose [Mass/Vol] 106 mg/dL Normal 74-106 [facility] Comment on above: Result Comment: Slig ht Lipemia, Result may be falsely increased. Fasting Glucose result from 100 to 125 mg/dL suggests IMPAIRED HOMEOSTASIS per A.D.A. criteria. Please note revised GLUCOSE reference range effective 2017. Performed By: #### L 500.2500, L501.4010 #### [facility] [address] [place], [address] Potassium [Moles/Vol] 4.3 mmol/L Normal 3.5-5.1 [facility] Comment on above: Result Comment: Slig ht Lipemia, Result may be falsely increased. Performed By: #### L 500.2500, L501.4010 #### [facility] [address] [place], [address] Sodium [Moles/Vol] 144 mmol/L Normal 136-145 [facility] Comment on above: Performed By: #### L 500.2500, L501.4010 #### [facility] [address] [place], [address] Urea nitrogen [Mass/Vol] 25 mg/dL High 7-18 [facility] Comment on above: Result Comment: Slig ht Lipemia, Result may be falsely increased. Performed By: #### L 500.2500, L501.4010 #### [facility] [address] [place], [address] Urea nitrogen [Mass/Vol] 17.1 RATIO Normal 10-20 [facility] Comment on above: Performed By: #### L 500.2500, L501.4010 #### [facility] [address] [place], [address] Brain without Contraston Brain without Contrast [facility] Imaging Services [address] [place] [address] Brain without Contrast MR#: [id number] Acct: [id number] Name: ZENAIDA EVANS Rep #: [id number] : 1935 F 84 From: Julián North MD PCP: Susannah Clemente MD Status: ADM IN Study: Brain without Contrast Date of Exam: 10/16/19 Exam# [id number] Ordering Dr: Gabrielle Winkler MD STUDY: MRI [...] , CC: Susannah Clemente MD; Gabrielle Winkler Laborer Yard: Signed Normal [facility] Brain/Head without Contrasto n 10-16-2019 Brain/Head without Contrast [facility] Imaging Services [address] [place] [address] Brain/Head without Contrast MR#: [id number] Acct: [id number] Name: ZENAIDA EVANS Rep #: [id number] : 1935 F 84 From: Josue Galarza MD PCP: Christin Aly MD Status: REG ER Study: Brain/Head without Contrast Date of Exam: 10/15/19 Exam# [id number] Ordering Dr: Marshall Corrales MD ADDENDUM by [...] CC: Christin Aly MD; Marshall Corrales MD Laborer Yard: Signed Normal [facility] CBC W/Diff, Automatedon 09-19 Absolute Neut 3.6 X10 3/uL Normal 2.0-7.7 [facility] Comment on above: Performed By: #### L 100.0100 #### [facility] [place], [address] Basophils/100 WBC (Bld) 0.4 % Normal 0-1 [facility] Comment on above: Performed By: #### L 100.0100 #### [facility] [address] [place], [address] Eosinophils/100 WBC (Bld) 2.0 % Normal 0-5 [facility] Comment on above: Performed By: #### L 100.0100 #### [facility] [address] [place], [address] Erythrocyte distribution width (RBC) [Ratio] 13.7 % Normal 11.6-14.6 [facility] Comment on above: Performed By: #### L 100.0100 #### [facility] [address] [place], [address] Hematocrit (Bld) [Volume fraction] 32.0 % Low 37-47 [facility] Comment on above: Performed By: #### L 100.0100 #### [facility] [address] [place], [address] Hemoglobin (Bld) [Mass/Vol] 10.5 g/dL Low 12.0-15.0 [facility] Comment on above: Performed By: #### L 100.0100 #### [facility] [address] [place], [address] IM GRAN % 0.200 % Normal 0.0-0.9 [facility] Comment on above: Result Comment: IG% - Immature Granulocytes (promyelocytes, myelocytes and metamyelocytes) > 1% indicates that a LEFT SHIFT is Present. Performed By: #### L 100.0100 #### [facility] [address] [place], [address] Lymphocytes (Bld) [#/Vol] 1.23 X10 3/uL Normal 0.83-4.51 [facility] Comment on above: Performed By: #### L 100.0100 #### [facility] [address] [place], [address] Lymphocytes/100 WBC (Bld) 22.8 % Normal 19-41 [facility] Comment on above: Performed By: #### L 100.0100 #### [facility] [address] [place], [address] MCH (RBC) [Entitic mass] 32.8 pg High 27.0-32.0 [facility] Comment on above: Performed By: #### L 100.0100 #### [facility] [address] [place], [address] MCHC (RBC) [Mass/Vol] 32.8 g/dL Normal 32-36 [facility] Comment on above: Performed By: #### L 100.0100 #### [facility] [address] [place], [address] MCV (RBC) [Entitic vol] 100.0 fL High 81-99 [facility] Comment on above: Performed By: #### L 100.0100 #### [facility] [address] [place], [address] Monocytes/100 WBC (Bld) 8.5 % Normal 0-10 [facility] Comment on above: Performed By: #### L 100.0100 #### [facility] [address] [place], [address] Neutrophils/100 WBC (Bld) 66.1 % Normal 47-70 [facility] Comment on above: Performed By: #### L 100.0100 #### [facility] [address] [place], [address] NRBC, FLAGGED 0 % Normal 0-5 [facility] Comment on above: Performed By: #### L 100.0100 #### [facility] [address] [place], [address] Platelet mean volume (Bld) [Entitic vol] 10.0 fL Normal 6.2-12.0 [facility] Comment on above: Performed By: #### L 100.0100 #### [facility] [address] [place], [address] Platelets (Bld) [#/Vol] 202 10*3/uL Normal 150-450 [facility] Comment on above: Performed By: #### L 100.0100 #### [facility] [address] [place], [address] RBC (Bld) [#/Vol] 3.20 M/mm3 Low 4.2-5.4 [facility] Comment on above: Performed By: #### L 100.0100 #### [facility] [address] [place], [address] RDW SD 50.0 fl High 35.1-43.9 [facility] Comment on above: Performed By: #### L 100.0100 #### [facility] [address] [place], [address] WBC (Bld) [#/Vol] 5.4 10*3/uL Normal 4.4-11.0 [facility] Comment on above: Performed By: #### L 100.0100 #### [facility] [address] [place], [address] Absolute Neut 4.1 X10 3/uL Normal 2.0-7.7 [facility] Comment on above: Performed By: #### L 100.0100 ####[facility] [address] [place], [address] Basophils/100 WBC (Bld) 0.3 % Normal 0-1 [facility] Comment on above: Performed By: #### L 100.0100 ####[facility] [address] [place], [address] Eosinophils/100 WBC (Bld) 2.6 % Normal 0-5 [facility] Comment on above: Performed By: #### L 100.0100 ####[facility] [address] [place], [address] Erythrocyte distribution width (RBC) [Ratio] 13.7 % Normal 11.6-14.6 [facility] Comment on above: Performed By: #### L 100.0100 ####[facility] [address] [place], [address] Hematocrit (Bld) [Volume fraction] 36.5 % Low 37-47 [facility] Comment on above: Performed By: #### L 100.0100 ####[facility] [address] [place], [address] Hemoglobin (Bld) [Mass/Vol] 12.3 g/dL Normal 12.0-15.0 [facility] Comment on above: Performed By: #### L 100.0100 ####[facility] [address] [place], [address] IM GRAN % 0.300 % Normal 0.0-0.9 [facility] Comment on above: Result Comment: IG% - Immature Granulocytes (promyelocytes, myelocytes and metamyelocytes) > 1% indicates that a LEFT SHIFT is Present. Performed By: #### L 100.0100 ####[facility] [address] [place], [address] Lymphocytes (Bld) [#/Vol] 1.61 X10 3/uL Normal 0.83-4.51 [facility] Comment on above: Performed By: #### L 100.0100 ####[facility] [address] [place], [address] Lymphocytes/100 WBC (Bld) 24.7 % Normal 19-41 [facility] Comment on above: Performed By: #### L 100.0100 ####[facility] [address] [place], [address] MCH (RBC) [Entitic mass] 33.8 pg High 27.0-32.0 [facility] Comment on above: Performed By: #### L 100.0100 ####[facility] [address] [place], [address] MCHC (RBC) [Mass/Vol] 33.7 g/dL Normal 32-36 [facility] Comment on above: Performed By: #### L 100.0100 ####[facility] [address] [place], [address] MCV (RBC) [Entitic vol] 100.3 fL High 81-99 [facility] Comment on above: Performed By: #### L 100.0100 ####[facility] [address] [place], [address] Monocytes/100 WBC (Bld) 8.4 % Normal 0-10 [facility] Comment on above: Performed By: #### L 100.0100 ####[facility] [address] [place], [address] Neutrophils/100 WBC (Bld) 63.7 % Normal 47-70 [facility] Comment on above: Performed By: #### L 100.0100 ####[facility] [address] [place], [address] NRBC, FLAGGED 0 % Normal 0-5 [facility] Comment on above: Performed By: #### L 100.0100 ####[facility] [address] [place], [address] Platelet mean volume (Bld) [Entitic vol] 10.1 fL Normal 6.2-12.0 [facility] Comment on above: Performed By: #### L 100.0100 ####[facility] [address] [place], [address] Platelets (Bld) [#/Vol] 221 10*3/uL Normal 150-450 [facility] Comment on above: Performed By: #### L 100.0100 ####[facility] [address] [place], [address] RBC (Bld) [#/Vol] 3.64 M/mm3 Low 4.2-5.4 [facility] Comment on above: Performed By: #### L 100.0100 ####[facility] [address] [place], [address] RDW SD 50.0 fl High 35.1-43.9 [facility] Comment on above: Performed By: #### L 100.0100 ####[facility] [address] [place], [address] WBC (Bld) [#/Vol] 6.5 10*3/uL Normal 4.4-11.0 [facility] Comment on above: Performed By: #### L 100.0100 ####[facility] [address] [place], [address] Carotid Duplex Ultrasoundon 10-16-2019 Carotid Duplex Ultrasound [facility] Cardiovascular Services [address] [place] [address] Carotid Duplex Ultrasound 10/16/19 0848 MR#: [id number] Acct: [id number] Name: ZENAIDA EVANS Rep #: [id number] : 1935 84 From: Brandyn Rocha MD [...] in the left bulb. Procedure Carotid Duplex 61340. Exam performed portable in ICU/CCU. Interpretation Summary [...] Winkler Date Dictated: 10/16/1947 Date Transcribed: 10/16/191701 Laborer Yard: Signed Normal [facility] Chest 1 Viewon 10-16-2019 Chest 1 View [facility] Services [address] [place] [address] Chest 1 View MR#: [id number] Acct: [id number] Name: ZENAIDA EVANS Rep #: [id number] : 1935 F 84 From: Josue Galarza MD PCP: Chrisitn Aly MD Status: REG ER Study: Chest 1 View Date of Exam: 10/15/19 Exam# [id number] Ordering Dr: Marshall Corrales MD HISTORY: PT [...] CC: Christin Aly MD; Marshall Corrales MD Laborer Yard: Signed Normal [facility] Echocardiogram Completeon Echocardiogram Complete [facility] [place] [address] Echo Complete 10/16/19 0815 MR#: [id number] Acct: [id number] Name: ZENAIDA EVANS Rep #: [id number] : 1935 84 From: Vasile Reyes MD [...] Date Dictated: 10/16/1915 Date Transcribed: 10/16/19 131 Laborer Yard: Signed Normal [facility] Emergency Department Summary on 10-16-2019 Emergency Department Summary [facility] Medical Records Department [address] [place] [address] Emergency Department Summary 10/15/19 2256 MR#: [id number] Acct: [id number] Name: ZENAIDA EVANS Rep #: [id number] : 1935 84 From: Marshall Corrales MD PCP: Christin Aly MD Status: ADM IN History of Present Illness Chief Complaint: Neuro S/Sx Informant: Patient, Significant Other, Sustainability Manager Narrative: Patient stated over the last week [...] for ED Patient: Disposition: Acute Care Hospital [facility] Diagnosis: Stroke, Hypertensive emergency What to do if you have Problems For any increased pain, shortness of breath, bleeding, nausea or vomiting, chest pain, or any unexpected problems, contact your Primary Care Provider. Call [facility] ([phone]) or report to the closest Emergency Room. Call 911 if necessary. 10/16/19 0644 Date Marshall Corrales MD Cosigner Signature (If Indicated): Date CC: Christin Aly MD Normal [facility] History and Physical Examon 10-16-2019 History and Physical Exam [facility] Medical Records Department [address] [place] [address] History and Physical 10/16/19 0056 MR#: [id number] Acct: [id number] Name: ZENAIDA EVANS Rep #: [id number] : 1935 84 From: Gabrielle Winkler MD [...] leg Psychiatric History: No pertinent psych hx DRESS MARKER History: No pertinent DRESS MARKER history Lives: Spouse/ Significant Other Smoking Status: [...] % (Auto) 63.7, Lymph % (Auto) 24.7, [place] % (Auto) 8.4, Eos % (Auto) 2.6, [...] techniques were used for this CT. at 2229 Reported and signed by: Josue Galarza MD Electronically Signed: Josue Galarza MD at 22:25 EST Tel , Service support , ADDENDUM: 10/16/19 0000 IMPRESSION: No acute intracranial abnormality. Chronic changes as above. ASPECT 10. Individualized dose optimization techniques were used for this CT. at 2227 Reported and signed by: Josue Galraza MD N.B. : The above information has [...] Subcu heparin. This note was generated with Sphere 3dation software. It may contain incorrect words, spelling, and punctuation that were not noted in checking the note before signing. Code Visit Inpatient E AND M: [id number] Init Hosp L3 10/16/19 0117 Date Gabrielle Winkler MD Cosigner Signature: Date (if applicable) CC: Gabrielle Winkler; Christin Aly MD Signed Normal [facility] Lipid Profileon 10-16-2019 Cholesterol [Mass/Vol] 202 mg/dL High 200 [facility] Comment on above: Result Comment: <200 mg/dL Desirable 200-240 mg/dL Borderline >240 mg/dL High Risk Performed By: #### L 500.2500, L500.4100 ####[facility] [address] [place], [place], [address] Cholesterol in HDL [Mass/Vol] 84 mg/dL Normal [facility] Comment on above: Result Comment: The drugs N-Acetylcysteine and Metamizole may falsely depress this assay. Reference Range HDL <40 mg/dL Low HDL Cholesterol HDL >or= 60 mg/dL High HDL Cholesterol Performed By: #### L 500.2500, L500.4100 ####[facility] [address] [place], [address] Cholesterol in LDL [Mass/Vol] 102 mg/dL Normal 0-130 [facility] Comment on above: Performed By: #### L 500.2500, L500.4100 ####[facility] [address] [place], [address] Cholesterol in VLDL [Mass/Vol] 16 mg/dL Normal 5-40 [facility] Comment on above: Performed By: #### L 500.2500, L500.4100 ####[facility] [address] [place], [address] Triglyceride [Mass/Vol] 80 mg/dL Normal [facility] Comment on above: Result Comment: The drugs N-Acetylcysteine and Metamizole may falsely depress this assay. Serum Triglycerides Reference Interval Normal <150 mg/dL Borderline high 150 - 199 mg/dL High 200 - 499 mg/dL Very High > or = 500 mg/dL Performed By: #### L 500.2500, L500.4100 ####[facility] [address] [place], [address] Partial Thromboplast Timeon 10-16-2019 aPTT Coag (Bld) [Time] 29.7 s Normal 24.1-36.2 [facility] Comment on above: Performed By: #### L 300.4310, L300.3900 #### [facility] [address] [place], [address] Prothrombin Time w/INRon INR Coag (PPP) [Relative time] 0.9 {INR} Normal [facility] Comment on above: Performed By: #### L 300.4310, L300.3900 #### [facility] [address] [place], [address] PT Coag (PPP) [Time] 12.2 s Normal 11.7-14.9 [facility] Comment on above: Performed By: #### L 300.4310, L300.3900 #### [facility] [address] [place], [address] Renal Artery Duplexon 2018 Renal Artery Duplex [facility] Cardiovascular Services [address] [place] [address] Renal Artery Duplex Ultrasound 10/16/19 1419 MR#: [id number] Acct: [id number] Name: ZENAIDA EVANS Rep #: [id number] : 1935 84 From: Brandyn Rocha MD [...] Date Dictated: 10/16/19 1419 Date Transcribed: 10/16/191722 Laborer Yard: Signed Normal [facility] Troponin-Ion 10-16-2019 Troponin I.cardiac [Mass/Vol] ng/mL Normal <0.045 [facility] Comment on above: Result Comment: Slig ht Lipemia, Result may be falsely increased. TROPONIN-I EXPECTED VALUES <0.045 Negative 0.045 - 0.590 Consistent with Cardiac Damage > OR = 0.600 Critical Value Not every elevated troponin is indicative of GA. These values should be used with clinical judgement in examining the patient's clinical picture for diagnosis. To establish a diagnosis of GA versus myocardial injury, there must be a demonstrated rise and/or fall in the troponin values, in addition to ischemic symptoms, EKG changes, new regional wall motion abnormality, and/or angiographical evidence. PLEASE NOTE: REFERENCE RANGES EDITED 18 Performed By: #### L 500.2500, L501.4010 #### [facility] [address] [place], [address] CNOVon 02-07-2018 CNOV Office Visit (AGCARDWST) -------ZENAIDA EVANS ([id number]) 1935 [place] [facility]02/07/18 3:00 PM SCOTTY BERRY AGCARDWST During your [...] - metBeta cecilia for ASHD with prior GA or prior LVEFANDlt;40 (NQF 0070) - N/ABeta [...] at the time of dosing is greater [id number]. Hopefully we can come to more equilibrium. She will continue Diovan at hercurrent dose.She was advised to increase magnesium in her diet.I've asked her to try Dramamine for episodes of nausea and vertigo to see ifthis helps. 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 I've encouragedher to follow this up with Dr. Clemente. [facility] will see her as originally scheduled [...] 100. Blood pressure will vary from less chrb690 to over 150.She has been having problems with some bone pain and headaches. She's had onsetof nausea and some mild vertigo over the last few weeks. She has hadintermittent constipation and occasional vomiting. She reports that she hadbrain scan done while [facility].She's had rare , atypical chest discomfort. She [...] 03/13/2011 no retinopathy detected -both eyes - [facility] - return in 1 year -Dr. Ruby- [...] History Narrative . 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 5 grandchildren (no greats yet). Enjoys gardening, anything outside, working on manuscript for a book [employer], [place]. Enjoys knitting, sewing and photgraphy.REVIEW OF SYSTEMS: [...] programs in your area.Referring Provider: [facility] [[id number]]Allergies As of Date: 02/07/2018 Noted Allergy ReactionSCOPOLAMINE [...] hypertension [I15.0]Order(s):[facility] [[id number]] Order #: [id number] FUTURE hydroCHLOROthiazide (HYDRODIURIL, ESIDRIX) 25 mg tabletTake [...] [R26.9] INVALID FOR* Vaginal atrophy [N95.2] Dyspareunia [UIY3011] Seborrheic dermatitis [L21.9] INVALID FOR* Vaginismus [N94.2] [...] the following areas and commit to making retirement changes. EAT A WHOLE FOOD, PLANT BASED [...] on file.Follow-up and Disposition History RecordedEncounter Number: [id number] Status:Closed by SCOTTY BERRY MD on 02/07/18 [facility] PROGRESSon 02-07-2018 PROGRESS HNO ID: [id number] thor: Scotty Rankin: (none)Author Type: PhysicianType: Progress NotesFiled: 02/07/2018 5:05 PMNote Text:PERTINENT CARDIAC HISTORYChest pain - normal cath and stressPalpitations - SVTHTNHLADHERENCE TO GUIDELINESACE-I or ARB for HF with prior LVEF<40 (NQF 0081) - N/AASA or Plavix for ASHD (NQF 0067) - metBeta cecilia for ASHD with prior GA or prior LVEF<40 (NQF 0070) - N/ABeta [...] milligrams twice daily. She may take an [id number] milligrams if her systolic blood pressure at [...] that shehad brain scan done while in [facility].She's had rare , atypical chest discomfort. She [...] 03/13/2011 no retinopathy detected -both eyes - [facility] - return in 1year - Dr. Ruby- [...] History Narrative . 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 5 grandchildren (no greats yet). 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 Enjoys knitting, sewing and photgraphy.REVIEW OF SYSTEMS: [...] noncontrastscanElectronicall y Signed:Scotty Berry MDAprjoaquim 2017 4:03 [facility]:Susannah Clemente MD [facility] CNOVon 08-26-2017 CNOV Office Visit (AGCARDWST) -------ZENAIDA EVANS ([id number]) 1935 [place] Time Provider Putdfpyyzk26/9/17 11:00 AM SCOTTY BERRYWSNegrito During your visit [...] - metBeta cecilia for ASHD with prior GA or prior LVEFANDlt;40 (NQF 0070) - N/ABeta [...] with treatment plan.This note was generated using Metafused voice recognition system, and there may besome [...] 03/13/2011 no retinopathy detected -both eyes - [facility] - return in 1 year -Dr. Ruby- [...] History Narrative . 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 5 grandchildren (no greats yet). Enjoys gardening, anything outside, working on manuscript for a book on[employer], [place]. Enjoys knitting, sewing and photgraphy.REVIEW OF SYSTEMS: [...] intensity statintherapy.Electronically Signed:Scotty Berry MDAugember 2016 11:21 [facility]:Héctor Vargas MD 08/26/2017 11:22 AM SignedSPOTSYLVANIA REGIONAL MEDICAL CENTERSTYLE CHANGEA healthy lifestyle is the most important [...] programs in your area.Referring Provider: SUSANNAH CLEMENTE [[id number]]Allergies As of Date: 08/26/2017 Noted Allergy ReactionSCOPOLAMINE [...] pain, unspecified type [R07.9] SVT (supraventricular tachycardia) ([facility]) [I47.1]Order(s):ECG B/O W INTERP (MED OFFICE) [ECG06] Order #: [id number] as of 08/26/2017 Sig: BUDESONIDE DR - [...] 08/26/2017 10:51 AM >> TIKA JEFFREY MA [facility] Aug 26, 2017 10:51 AM Not taking DIPHENOXYLATE-ATROPINE 2.5 MG-0.025 MG TABLET >> Tika Jeffrey MA 08/26/2017 10:51 AM >> TIKA JEFFREY MA [facility] Aug 26, 2017 10:51 AM Not taking BISMUTH SUBSALICYLATE 262 MG CHEWABLE TABLET >> Tika Jeffrey MA 08/26/2017 10:50 AM >> TIKA JEFFREY MA [facility] Aug 26, 2017 10:50 AM Not [...] [R26.9] INVALID FOR* Vaginal atrophy [N95.2] Dyspareunia [DLZ6668] Seborrheic dermatitis [L21.9] INVALID FOR* Vaginismus [N94.2] [...] the following areas and commit to making retirement changes. EAT A WHOLE FOOD, PLANT BASED [...] your area.Follow-up and Disposition History RecordedEncounter Number: [id number] Status:Closed by SCOTTY BERRY MD on 08/27/17 [facility] PROGRESSon 08-26-2017 PROGRESS HNO ID: [id number] thor: Scotty Rankin: (none)Author Type: PhysicianType: Progress NotesFiled: 08/27/2017 10:10 AMNote Text:PERTINENT CARDIAC HISTORYChest pain - normal cath and stressPalpitations - SVTHTNHLADHERENCE TO GUIDELINESACE-I or ARB for HF with prior LVEF<40 (NQF 0081) - N/AASA or Plavix for ASHD (NQF 0067) - metBeta cecilia for ASHD with prior GA or prior LVEF<40 (NQF 0070) - N/ABeta [...] with treatment plan.This note was generated using Metafused voice recognition system, and theremay be some [...] 03/13/2011 no retinopathy detected -both eyes - [facility] - return in 1year - Dr. Ruby- [...] History Narrative . 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. 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 5 grandchildren (no greats yet). Enjoys gardening, anything outside, working on manuscript for a book [employer], [place]. Enjoys knitting, sewing and photgraphy.REVIEW OF SYSTEMS: [...] statin therapy.Electronically Signed:Scotty Berry MDNovember 2016 11:21 [facility]:Susannah Clemente MD [facility] Additional Injections: Cathryn farias A1 [facility] Vital Signs Date Time Vital Sign Value Performing Clinician Rosemary gonzales 04-03-2025 12:08-0400 Diastolic blood pressure 89 mm[Hg] Paul Bautista MD Work Phone: [facility] 04-03-2025 12:08-0400 Systolic blood pressure 168 mm[Hg] Paul Bautista MD Work Phone: [facility] 04-03-2025 12:04-0400 Body height 168.9 cm Paul Bautista MD Work Phone: [facility] 04-03-2025 12:04-0400 Body mass index (BMI) [Ratio] 20.51 kg/m2 Paul Bautista MD Work Phone: [facility] 04-03-2025 12:04-0400 Body weight 58.51 kg Paul Bautista MD Work Phone: [facility] 04-03-2025 12:04-0400 Heart rate 67 /min Paul Bautista MD Work Phone: [facility] 04-03-2025 12:04-0400 Respiratory rate 15 /min Paul Bautista MD Work Phone: [facility] 04-03-2025 12:04-0400 SaO2% (BldA) [Mass fraction] 95 % Paul Bautista MD Work Phone: [facility] 03-27-2025 16:37-0400 Diastolic blood pressure 81 mm[Hg] Susannah Clemente MD Work Phone: [facility] 03-27-2025 16:37-0400 Systolic blood pressure 149 mm[Hg] Susannah Clemente MD Work Phone: [facility] 03-27-2025 16:02-0400 Body height 167.6 cm Susannah Clemente MD Work Phone: [facility] 03-27-2025 16:02-0400 Body mass index (BMI) [Ratio] 21.49 kg/m2 Susannah Clemente MD Work Phone: [facility] 03-27-2025 16:02-0400 Body temperature 97.59 [degF] Susannah Clemente MD Work Phone: [facility] 03-27-2025 16:02-0400 Body weight 60.4 kg Susannah Clemente MD Work Phone: [facility] 03-27-2025 16:02-0400 Heart rate 62 /min Susannah Clemente MD Work Phone: [facility] 03-27-2025 16:02-0400 SaO2% (BldA) [Mass fraction] 97 % Susannah Clemente MD Work Phone: [facility] 07-26-2024 13:57-0400 Body height 167.6 cm Michelle Choudhary MD Work Phone: [facility] 07-26-2024 13:57-0400 Body mass index (BMI) [Ratio] 21.69 kg/m2 Michelle Choudhary MD Work Phone: [facility] 07-26-2024 13:57-0400 Body weight 60.96 kg Michelle Choudhary MD Work Phone: [facility] 07-26-2024 13:57-0400 Diastolic blood pressure 75 mm[Hg] Michelle Choudhary MD Work Phone: [facility] 07-26-2024 13:57-0400 Systolic blood pressure 188 mm[Hg] Michelle Choudhary MD Work Phone: [facility] 07-17-2024 10:43-0400 Body mass index (BMI) [Ratio] 22.1 kg/m2 Dominguez Harkins MD Work Phone: [facility] 07-17-2024 10:43-0400 Body temperature 97.3 [degF] Dominguez Harkins MD Work Phone: [facility] 07-17-2024 10:43-0400 Body weight 62.1 kg Dominguez Harkins MD Work Phone: [facility] 07-17-2024 10:43-0400 Diastolic blood pressure 84 mm[Hg] Dominguez Harkins MD Work Phone: [facility] 07-17-2024 10:43-0400 Heart rate 82 /min Dominguez Harkins MD Work Phone: [facility] 07-17-2024 10:43-0400 Respiratory rate 18 /min Dominguez Harkins MD Work Phone: [facility] 07-17-2024 10:43-0400 SaO2% (BldA) [Mass fraction] 95 % Dominguez Harkins MD Work Phone: [facility] 07-17-2024 10:43-0400 Systolic blood pressure 144 mm[Hg] Dominguez Harkins MD Work Phone: [facility] 07-13-2024 14:28-0400 Body mass index (BMI) [Ratio] 22.17 kg/m2 Erwin Rosales MD Work Phone: [facility] 07-13-2024 14:28-0400 Body temperature 98.2 [degF] Erwin Rosales MD Work Phone: [facility] 07-13-2024 [id number] Body weight 62.3 kg Erwin Rosales MD Work Phone: [facility] 07-13-2024 14:28-0400 Diastolic blood pressure 82 mm[Hg] Erwin Rosales MD Work Phone: [facility] 07-13-2024 14:28-0400 Heart rate 63 /min Erwin Rosales MD Work Phone: [facility] 07-13-2024 14:28-0400 Respiratory rate 20 /min Erwin Rosales MD Work Phone: [facility] 07-13-2024 14:28-0400 SaO2% (BldA) [Mass fraction] 97 % Erwin Rosales MD Work Phone: [facility] 07-13-2024 14:28-0400 Systolic blood pressure 165 mm[Hg] Erwin Rosales MD Work Phone: [facility] 07-03-2024 10:20-0400 Body mass index (BMI) [Ratio] 21.81 kg/m2 Susannah Clemente MD Work Phone: [facility] 07-03-2024 10:20-0400 Body temperature 97.9 [degF] Susannah Clemente MD Work Phone: [facility] 07-03-2024 10:20-0400 Body weight 61.3 kg Susannah Clemente MD Work Phone: [facility] 07-03-2024 10:20-0400 Diastolic blood pressure 72 mm[Hg] Susannah Clemente MD Work Phone: [facility] 07-03-2024 10:20-0400 Heart rate 74 /min Susannah Clemente MD Work Phone: [facility] 07-03-2024 10:20-0400 SaO2% (BldA) [Mass fraction] 96 % Susannah Clemente MD Work Phone: [facility] 07-03-2024 10:20-0400 Systolic blood pressure 136 mm[Hg] Susannah Clemente MD Work Phone: [facility] 06-26-2024 15:51-0400 Body mass index (BMI) [Ratio] 21.63 kg/m2 Emilee [address] JUDGE.NETWORKER Work Phone: [facility] 06-26-2024 15:51-0400 Body temperature 97.39 [degF] Emilee Indorf [facility] JUDGE.NETWORKER Work Phone: [facility] 06-26-2024 15:51-0400 Body weight 60.8 kg [address] JUDGE.NETWORKER Work Phone: [facility] 06-26-2024 15:51-0400 Diastolic blood pressure 78 mm[Hg] Emilee Indorf [address] JUDGE.NETWORKER Work Phone: [facility] 06-26-2024 15:51-0400 Heart rate 78 /min Emilee Indorf [address] [facility] JUDGE.NETWORKER Work Phone: [facility] 06-26-2024 15:51-0400 Respiratory rate 16 /min Emilee Indorf [address] JUDGE.NETWORKER Work Phone: [facility] 06-26-2024 15:51-0400 SaO2% (BldA) [Mass fraction] 94 % Emilee Indorf [facility] JUDGE.NETWORKER Work Phone: [facility] 06-26-2024 15:51-0400 Systolic blood pressure 132 mm[Hg] Emilee Indorf [address] JUDGE.NETWORKER Work Phone: [facility] 06-11-2024 12:32-0400 Body mass index (BMI) [Ratio] 20.99 kg/m2 Kelsi Z[address] JUDGE.NETWORKER Work Phone: [facility] 06-11-2024 12:32-0400 Body temperature 97.11 [degF] Kelsi Zavala [facility] JUDGE.NETWORKER Work Phone: [facility] 06-11-2024 12:32-0400 Body weight 59 kg Kelsi Zavala [address] JUDGE.NETWORKER Work Phone: [facility] 06-11-2024 12:32-0400 Diastolic blood pressure 85 mm[Hg] Kelsi Zavala [facility] JUDGE.NETWORKER Work Phone: [facility] 06-11-2024 12:32-0400 Heart rate 70 /min Kelsi Zavala [facility] JUDGE.NETWORKER Work Phone: [facility] 06-11-2024 12:32-0400 Respiratory rate 20 /min Kelsi Zavala [address] [facility] JUDGE.NETWORKER Work Phone: [facility] 06-11-2024 12:32-0400 SaO2% (BldA) [Mass fraction] 96 % Kelsi Zavala [facility] JUDGE.NETWORKER Work Phone: [facility] 06-11-2024 12:32-0400 Systolic blood pressure 176 mm[Hg] Kelsi Zavala [facility] JUDGE.NETWORKER Work Phone: [facility] 03-30-2024 14:48-0400 Body height 167.6 cm Paul Bautista MD Work Phone: [facility] 03-30-2024 14:48-0400 Body mass index (BMI) [Ratio] 21.14 kg/m2 Paul Bautista MD Work Phone: [facility] 03-30-2024 14:48-0400 Body weight 59.42 kg Paul Bautista MD Work Phone: [facility] 03-30-2024 14:48-0400 Diastolic blood pressure 68 mm[Hg] Paul Bautista MD Work Phone: [facility] 03-30-2024 14:48-0400 Heart rate 75 /min Paul Bautista MD Work Phone: [facility] 03-30-2024 14:48-0400 SaO2% (BldA) [Mass fraction] 97 % Paul Bautista MD Work Phone: [facility] Comment on above: RA 03-30-2024 14:48-0400 Systolic blood pressure 133 mm[Hg] Paul Bautista MD Work Phone: [facility] 03-29-2024 12:39-0400 Diastolic blood pressure 58 mm[Hg] Susannah Clemente MD Work Phone: [facility] 03-29-2024 12:39-0400 Systolic blood pressure 120 mm[Hg] Susannah Clemente MD Work Phone: [facility] 03-28-2024 16:32-0400 Diastolic blood pressure 91 mm[Hg] Susannah Clemente MD Work Phone: [facility] 03-28-2024 16:32-0400 Systolic blood pressure 176 mm[Hg] Susannah Clemente MD Work Phone: [facility] 03-28-2024 16:07-0400 Body mass index (BMI) [Ratio] 22.03 kg/m2 Susannah Clemente MD Work Phone: [facility] 03-28-2024 16:07-0400 Body temperature 97.7 [degF] Susannah Clemente MD Work Phone: [facility] 03-28-2024 16:07-0400 Body weight 61.92 kg Susannah Clemente MD Work Phone: [facility] 03-28-2024 16:07-0400 Heart rate 60 /min Susannah Clemente MD Work Phone: [facility] 03-28-2024 16:07-0400 SaO2% (BldA) [Mass fraction] 97 % Susannah Clemente MD Work Phone: [facility] 01-26-2024 11:31-0400 Body height 167.6 cm Virgil Gomez MD Work Phone: [facility] 01-26-2024 11:31-0400 Body temperature 97.7 [degF] Virgil Gomez MD Work Phone: [facility] 01-26-2024 11:31-0400 Body weight 62.14 kg Virgil Gomez MD Work Phone: [facility] 01-26-2024 11:31-0400 Diastolic blood pressure 75 mm[Hg] Virgil Gomez MD Work Phone: [facility] 01-26-2024 11:31-0400 Heart rate 64 /min Virgil Gomez MD Work Phone: [facility] 01-26-2024 11:31-0400 SaO2% (BldA) [Mass fraction] 96 % Virgil Gomez MD Work Phone: [facility] 01-26-2024 11:31-0400 Systolic blood pressure 181 mm[Hg] Virgil Gomez MD Work Phone: [facility] 11-06-2023 13:44-0500 Diastolic blood pressure 81 mm[Hg] [facility] 11-06-2023 13:44-0500 Heart rate 63 /min [facility] 11-06-2023 13:44-0500 Systolic blood pressure 178 mm[Hg] [facility] 11-06-2023 11:49-0500 Body height 167.64 cm [facility] 11-06-2023 11:49-0500 Body mass index (BMI) [Ratio] 21.9 kg/m2 [facility] 11-06-2023 11:49-0500 Body temperature 95.6 [degF] [facility] 11-06-2023 11:49-0500 Body weight 61.5 kg [facility] 11-06-2023 11:49-0500 Respiratory rate 16 /min [facility] 11-06-2023 11:49-0500 SaO2% (BldA) [Mass fraction] 98 % [facility] 09-30-2023 11:48-0500 Body height 167.6 cm Paul Bautista MD Work Phone: [facility] 09-30-2023 11:48-0500 Body weight 59.88 kg Paul Bautista MD Work Phone: [facility] 09-30-2023 11:48-0500 Diastolic blood pressure 63 mm[Hg] Paul Bautista MD Work Phone: [facility] 09-30-2023 11:48-0500 Heart rate 70 /min Paul Bautista MD Work Phone: [facility] 09-30-2023 11:48-0500 Respiratory rate 15 /min Paul Bautista MD Work Phone: [facility] 09-30-2023 11:48-0500 SaO2% (BldA) [Mass fraction] 95 % Paul Bautista MD Work Phone: [facility] 09-30-2023 11:48-0500 Systolic blood pressure 155 mm[Hg] Paul Bautista MD Work Phone: [facility] 08-06-2023 11:11-0400 Body height 166.4 cm Migel Garcia PA-C Work Phone: [facility] 08-06-2023 11:11-0400 Body weight 60.83 kg Migel Garcia PA-C Work Phone: [facility] 08-06-2023 11:11-0400 Diastolic blood pressure 67 mm[Hg] Migel Garcia PA-C Work Phone: [facility] 08-06-2023 11:11-0400 Heart rate 69 /min Migel Garcia PA-C Work Phone: [facility] 08-06-2023 11:11-0400 SaO2% (BldA) [Mass fraction] 95 % Migel Garcia PA-C Work Phone: [facility] 08-06-2023 11:11-0400 Systolic blood pressure 125 mm[Hg] Migel Garcia PA-C Work Phone: [facility] 07-05-2023 13:43-0400 Diastolic blood pressure 60 mm[Hg] Susannah Clemente MD Work Phone: [facility] 07-05-2023 13:43-0400 Systolic blood pressure 138 mm[Hg] Susannah Clemente MD Work Phone: [facility] 07-05-2023 12:58-0400 Body height 168.9 cm Susannah Clemente MD Work Phone: [facility] 07-05-2023 12:58-0400 Body temperature 97.7 [degF] Susannah Clemente MD Work Phone: [facility] 07-05-2023 12:58-0400 Body weight 60.44 kg Susannah Clemente MD Work Phone: [facility] 07-05-2023 12:58-0400 Heart rate 78 /min Susannah Clemente MD Work Phone: [facility] 07-05-2023 12:58-0400 SaO2% (BldA) [Mass fraction] 97 % Susannah Clemente MD Work Phone: [facility] 03-23-2023 16:27-0400 Body height 167.6 cm Susannah Clemente MD Work Phone: [facility] 03-23-2023 16:27-0400 Body temperature 98.2 [degF] Susannah Clemente MD Work Phone: [facility] 03-23-2023 16:27-0400 Body weight 59.42 kg Susannah Clemente MD Work Phone: [facility] 03-23-2023 16:27-0400 Diastolic blood pressure 62 mm[Hg] Susannah Clemente MD Work Phone: [facility] 03-23-2023 16:27-0400 Heart rate 75 /min Susannah Clemente MD Work Phone: [facility] 03-23-2023 16:27-0400 SaO2% (BldA) [Mass fraction] 96 % Susannah Clemente MD Work Phone: [facility] 03-23-2023 16:27-0400 Systolic blood pressure 130 mm[Hg] Susannah Clemente MD Work Phone: [facility] 01-30-2023 09:47-0400 Body temperature 97.59 [degF] Kelsi Zavala [facility] JUDGE.NETWORKER Work Phone: [facility] 01-30-2023 09:47-0400 Body weight 60.78 kg [address]elsi Zavala [address] JUDGE.NETWORKER Work Phone: [facility] 01-30-2023 09:47-0400 Diastolic blood pressure 80 mm[Hg] Kelsi Zavala [facility] JUDGE.NETWORKER Work Phone: [facility] 01-30-2023 09:47-0400 Heart rate 82 /min Kelsi Zavala [facility] JUDGE.NETWORKER Work Phone: [facility] 01-30-2023 09:47-0400 Respiratory rate 16 /min Kelsi Zavala [facility] JUDGE.NETWORKER Work Phone: [facility] 01-30-2023 09:47-0400 SaO2% (BldA) [Mass fraction] 96 % Kelsi Zavala [facility] JUDGE.NETWORKER Work Phone: [facility] 01-30-2023 09:47-0400 Systolic blood pressure 144 mm[Hg] Kelsi Zavala [facility] JUDGE.NETWORKER Work Phone: [facility] 11-20-2022 11:00-0500 Body height 167.6 [address] [place] [address] JUDGE.NETWORKER Work Phone: [facility] 11-20-2022 11:00-0500 Body weight 61.92 [address] JUDGE.NETWORKER Work Phone: [facility] 11-20-2022 11:00-0500 Diastolic blood pressure 68 mm[Hg] [place] [facility] JUDGE.NETWORKER Work Phone: [facility] 11-20-2022 11:00-0500 Heart rate 76 /min [place] [address] [facility] JUDGE.NETWORKER Work Phone: [facility] 11-20-2022 11:00-0500 SaO2% (BldA) [Mass fraction] 95 % [place] [facility] JUDGE.NETWORKER Work Phone: [facility] 11-20-2022 11:00-0500 Systolic blood pressure 137 mm[Hg] [place] [facility] JUDGE.NETWORKER Work Phone: [facility] 10-05-2022 15:00-0500 Body temperature 97.2 [degF] Ramandeep Bogner PA-C Work Phone: [facility] 10-05-2022 15:00-0500 Body weight 60.24 kg Ramandeep Bogner PA-C Work Phone: [facility] 10-05-2022 15:00-0500 Diastolic blood pressure 84 mm[Hg] Ramandeep Bogner PA-C Work Phone: [facility] 10-05-2022 15:00-0500 Heart rate 81 /min Ramandeep Bogner PA-C Work Phone: [facility] 10-05-2022 15:00-0500 Respiratory rate 20 /min Ramandeep Bogner PA-C Work Phone: [facility] 10-05-2022 15:00-0500 SaO2% (BldA) [Mass fraction] 97 % Ramandeep Bogner PA-C Work Phone: [facility] 10-05-2022 15:00-0500 Systolic blood pressure 162 mm[Hg] Ramandeep Nieto PA-C Work Phone: [facility] 10-01-2022 17:18-0500 Diastolic blood pressure 60 mm[Hg] Susannah Clemente MD Work Phone: [facility] 10-01-2022 17:18-0500 Systolic blood pressure 100 mm[Hg] Susannah Clemente MD Work Phone: [facility] 10-01-2022 14:24-0500 Body temperature 98.01 [degF] Susannah Clemente MD Work Phone: [facility] 10-01-2022 14:24-0500 Body weight 60.22 kg Susannah Clemente MD Work Phone: [facility] 10-01-2022 14:24-0500 Heart rate 94 /min Susannah Clemente MD Work Phone: [facility] 10-01-2022 14:24-0500 SaO2% (BldA) [Mass fraction] 96 % Susannah Clemente MD Work Phone: [facility] 09-02-2022 13:33-0500 Body height 168.9 cm Paul Bautista MD Work Phone: [facility] 09-02-2022 13:33-0500 Body weight 60.33 kg Paul Bautista MD Work Phone: [facility] 09-02-2022 13:33-0500 Diastolic blood pressure 75 mm[Hg] Paul Bautista MD Work Phone: [facility] 09-02-2022 13:33-0500 Heart rate 70 /min Paul Bautista MD Work Phone: [facility] 09-02-2022 13:33-0500 Respiratory rate 15 /min Paul Bautista MD Work Phone: [facility] 09-02-2022 13:33-0500 SaO2% (BldA) [Mass fraction] 97 % Paul Bautista MD Work Phone: [facility] 09-02-2022 13:33-0500 Systolic blood pressure 154 mm[Hg] Paul Bautista MD Work Phone: [facility] 07-16-2022 11:54-0400 Diastolic blood pressure 77 mm[Hg] Susannah Clemente MD Work Phone: [facility] 07-16-2022 11:54-0400 Systolic blood pressure 177 mm[Hg] Susannah Clemente MD Work Phone: [facility] 07-16-2022 11:37-0400 Body temperature 98.01 [degF] Susannah Clemente MD Work Phone: [facility] 07-16-2022 11:37-0400 Body weight 62.26 kg Susannah Clemente MD Work Phone: [facility] 07-16-2022 11:37-0400 Heart rate 68 /min Susannah Clemente MD Work Phone: [facility] 07-16-2022 11:37-0400 SaO2% (BldA) [Mass fraction] 97 % Susannah Clemente MD Work Phone: [facility] 05-18-2022 09:46-0400 Body height 167.6 cm Paul Bautista MD Work Phone: [facility] 05-18-2022 09:46-0400 Body weight 62.32 kg Paul Bautista MD Work Phone: [facility] 05-18-2022 09:46-0400 Diastolic blood pressure 89 mm[Hg] Paul Bautista MD Work Phone: [facility] 05-18-2022 09:46-0400 Heart rate 64 /min Paul Bautista MD Work Phone: [facility] 05-18-2022 09:46-0400 SaO2% (BldA) [Mass fraction] 99 % Paul Bautista MD Work Phone: [facility] 05-18-2022 09:46-0400 Systolic blood pressure 187 mm[Hg] Paul Bautista MD Work Phone: [facility] 05-14-2022 10:28-0400 Body height 167.6 cm Michelle Choudhary MD Work Phone: [facility] 05-14-2022 10:28-0400 Body weight 63.41 kg Michelle Choudhary MD Work Phone: [facility] 05-14-2022 10:28-0400 Diastolic blood pressure 81 mm[Hg] Michelle Choudhary MD Work Phone: [facility] 05-14-2022 10:28-0400 Heart rate 70 /min Michelle Choudhary MD Work Phone: [facility] 05-14-2022 10:28-0400 Systolic blood pressure 176 mm[Hg] Michelle Choudhary MD Work Phone: [facility] 04-17-2022 11:00-0400 Body height 166 cm Rosendo Rodgers MD Work Phone: [facility] 04-17-2022 11:00-0400 Body temperature 97.2 [degF] Rosendo Rodgers MD Work Phone: [facility] 04-17-2022 11:00-0400 Body weight 60.78 kg Rosendo Rodgers MD Work Phone: [facility] 04-17-2022 11:00-0400 Diastolic blood pressure 65 mm[Hg] Rosendo Rodgers MD Work Phone: [facility] 04-17-2022 11:00-0400 Heart rate 76 /min Rosendo Rodgers MD Work Phone: [facility] 04-17-2022 11:00-0400 Respiratory rate 20 /min Rosendo Rodgers MD Work Phone: [facility] 04-17-2022 11:00-0400 SaO2% (BldA) [Mass fraction] 98 % Rosendo Rodgers MD Work Phone: [facility] 04-17-2022 11:00-0400 Systolic blood pressure 134 mm[Hg] Rosendo Rodgers MD Work Phone: [facility] 04-14-2022 11:40-0400 Diastolic blood pressure 97 mm[Hg] Susannah Clemente MD Work Phone: [facility] 04-14-2022 11:40-0400 Systolic blood pressure 171 mm[Hg] Susannah Clemente MD Work Phone: [facility] 04-14-2022 11:23-0400 Body height 166.4 cm Susannah Clemente MD Work Phone: [facility] 04-14-2022 11:23-0400 Body temperature 97.81 [degF] Susannah Clemente MD Work Phone: [facility] 04-14-2022 11:23-0400 Body weight 61.24 kg Susannah Clemente MD Work Phone: [facility] 04-14-2022 11:23-0400 Heart rate 80 /min Susannah Clemente MD Work Phone: [facility] 04-14-2022 11:23-0400 SaO2% (BldA) [Mass fraction] 97 % Susannah Clemente MD Work Phone: [facility] Encounters Encounter Date Encounter Type Care [...] disease (HCC) Start: 04-03-2025 End: 04-03-2025 ambulatory [facility] Facility:[facility] Start: 04-03-2025 End: 04-03-2025 ambulatory [facility] Facility:[facility] Start: 04-02-2025 End: 04-05-2025 Telephone encounter Susannah Clemente MD Work Phone: [facility] Comment on above: Forms ([facility]) Start: 03-27-2025 End: 03-27-2025 ambulatory SUSANNAH CLEMENTE Facility:[facility] Start: 03-27-2025 End: 03-27-2025 Patient encounter procedure Susannah Clemente MD Work Phone: [facility] Comment on above: Atherosclerosis of n ative coronary artery of [place] heart without angina pectoris (Primary Dx); Chronic [...] Start: 02-01-2025 End: 02-01-2025 ambulatory SUSANNAH CLEMENTE Facility:[facility] Start: 02-01-2025 End: 02-05-2025 Follow-up encounter Susannah Clemente MD Work Phone: [facility] Comment on above: Results Start: 01-27-2025 End: 01-29-2025 ambulatory Susannah Clemente MD Work Phone: [facility] Comment on above: Schedule for blood t ests Start: 01-15-2025 End: 01-19-2025 Telephone encounter Susannah Clemente MD Work Phone: [facility] Comment on above: Orders ([facility]) Start: 01-05-2025 End: 01-09-2025 Refill Susannah Clemente MD Work Phone: [facility] Comment on above: Refill Request Start: 11-17-2024 End: 11-17-2024 ambulatory SUSANNAH CLEMENTE Facility:[facility] Start: 11-15-2024 End: 11-16-2024 Telephone encounter Susannah Clemente MD Work Phone: [facility] Start: 10-24-2024 End: 10-24-2024 Telephone encounter Susannah Clemente MD Work Phone: [facility] Comment on above: Orders; Appointment Start: 10-08-2024 End: 10-09-2024 Refill Susannah Clemente MD Work Phone: [facility] Comment on above: Refill Request Start: 09-13-2024 End: 09-13-2024 Orders Only Paul Bautista MD Work Phone: Cardiology Comment on above: Chronic diastolic (c ongestive) heart failure (HCC) (Primary Dx) Start: 08-29-2024 End: 08-30-2024 Refill Susannah Clemente MD Work Phone: [facility] Comment on above: Refill Request Start: 07-27-2024 End: 07-27-2024 ambulatory SUSANNAH CLEMENTE Facility:[facility] Start: 07-26-2024 End: 07-26-2024 ambulatory MICHELLE CHOUDHARY Facility:[facility] Start: 07-26-2024 End: 08-01-2024 Patient encounter procedure Michelle Choudhary MD Work Phone: Dermatology Comment on above: Neoplasm of unspecif ied behavior of bone, soft tissue, and skin (Primary Dx); Telogen effluvium; Seborrheic dermatitis; Hx of nonmelanoma skin cancer; Photoaging of skin; Personal history of malignant neoplasm of breast; Chronic diastolic (congestive) heart failure (HCC) Start: 07-17-2024 End: 07-17-2024 ambulatory SUSANNAH CLEMENTE Facility:[facility] Start: 07-17-2024 End: 07-17-2024 Patient encounter procedure Dominguez Harkins MD Work Phone: Fam [facility] Comment on above: Urgency of urination (Primary Dx) Start: 07-14-2024 End: 07-14-2024 ambulatory SUSANNAH CLEMENTE Facility:[facility] Start: 07-14-2024 End: 07-14-2024 Subsequent hospital visit by physician Xr [facility]am Faith Work Phone: Radiology Comment on above: Exertional dyspnea [ R06.09] Start: 07-13-2024 End: 07-13-2024 ambulatory ERWIN ROSALES Facility:[facility] Start: 07-13-2024 End: 07-13-2024 Patient encounter procedure Erwin Rosales MD Work Phone: [facility] Comment on above: 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 Breathing Problem Start: 07-03-2024 End: 07-03-2024 Telephone encounter Susannah Clemente MD Work Phone: [facility] Comment on above: Patient Question (No thing was available for medicare wellness until February, AVS said to see in 4 months, offered patient to schedule with Ruby, she did not want to, wanted to know if scheduling her for February was okay with you? 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 4 chronic kidney disease, or chronic kidney disease (HCC) (Primary Dx); Exertional dyspnea; Acute cystitis without hematuria Start: 06-26-2024 End: 06-26-2024 Office outpatient visit 15 minutes Emilee Crump APRN.NETWORKER Work Phone: [facility] Comment on above: Urinary frequency (P rimary Dx) Start: 06-26-2024 End: 06-26-2024 ambulatory Susannah Clemente MD Work Phone: [facility] Comment on above: burning and pressure with urination Start: 06-24-2024 End: 06-24-2024 ambulatory SUSANNAH CLEMENTE Facility:[facility] Start: 06-11-2024 End: 06-11-2024 [facility] SUSANNAH CLEMENTE Facility:[facility] Start: 06-11-2024 End: 06-11-2024 Patient encounter procedure Kelsi Zavala APRN.NETWORKER Work Phone: [facility] Comment on above: Cellulitis of left a rm (Primary Dx) Start: 05-30-2024 End: 05-30-2024 ambulatory ABENA BUSTILLOS Facility:[facility] Start: 05-16-2024 End: 05-16-2024 ambulatory ABENA WENDI BUSTILLOS Facility:[facility] Start: 05-15-2024 Refill Susannah buchanan MD Work Phone: [facility] Comment on above: Refill Request Start: 05-14-2024 ambulatory Susannah buchanan MD Work Phone: [facility] Comment on above: Ondansetron ODT 4mg Refill Request Start: 05-03-2024 End: 05-03-2024 ambulatory ABENA BUSTILLOS Facility:[facility] Start: 04-10-2024 Telephone encounter Susannah Clemente MD Work Phone: [facility] Start: 04-08-2024 ambulatory Susannah buchanan MD Work Phone: [facility] Comment on above: Blood Pressure numbe rs Start: 03-30-2024 End: 03-30-2024 Patient encounter procedure Paul Bautista MD Work Phone: Cardiology Comment on above: Chronic diastolic (c ongestive) heart failure (HCC) (Primary Dx) Start: 03-28-2024 End: 03-28-2024 Office outpatient visit 25 minutes Susannah Clemente MD Work Phone: [facility] Comment on above: Situational depressi on (Primary Dx); Cerebral microvascular disease; Essential hypertension; Epigastric abdominal tenderness without rebound tenderness; 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 disease, or chronic kidney disease (HCC); Collagenous colitis; 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) Start: 03-13-2024 Refill Susannah buchanan MD Work Phone: [facility] Comment on above: Refill Request Start: 01-26-2024 End: 01-26-2024 Patient encounter procedure Virgil Gomez MD Work Phone: Gastroenterology Comment on above: Pancreatic cyst (Monik cristina Dx); Collagenous colitis Start: 01-17-2024 Refill Paul dawson MD Work Phone: Cardiology Comment on above: Rx Refills Start: 01-10-2024 Documentation procedure Mammog yang Coordinator [facility] Start: 01-10-2024 Letter encounter Mammography Coordinator [facility] Department Start: 01-07-2024 End: 01-07-2024 Patient encounter [...] 01-03-2024 ambulatory Susannah buchanan MD Work Phone: [facility] Start: 01-03-2024 Patient encounter procedure Susannah Clemente MD Work Phone: [facility] Comment on above: Consult to [facility] Start: 12-31-2023 Orders Only Alicia nair [employer] JUDGE.NETWORKER Work Phone: [facility] Comment on above: Encounter for screen ing mammogram for breast cancer (Primary Dx) Start: 12-31-2023 Refill Susannah buchanan MD Work Phone: [facility] Comment on above: Refill Request Start: 12-20-2023 ambulatory Susannah buchanan MD Work Phone: [facility] Comment on above: Mammogram schedule Start: 11-06-2023 End: 11-06-2023 Emergency department patient visit [facility] Work Phone: Start: 10-18-2023 End: 09-06-2024 Telephone encounter Virgil Gomez MD Work Phone: Gastroenterology Start: 10-07-2023 Refill Susannah buchanan MD Work Phone: [facility] Comment on above: Refill Request (Clon idine and Labetalol) Start: 09-30-2023 End: 09-30-2023 Patient encounter procedure Paul Bautista MD Work Phone: Cardiology Comment on above: Chronic diastolic (c ongestive) heart failure (HCC) (Primary Dx); Stage 3a chronic kidney disease (HCC) Start: 09-20-2023 ambulatory Migel Ayers ms PA-C Work Phone: [facility] Comment on above: Physical therapy Start: 09-10-2023 End: 09-10-2023 ambulatory Liam Bull PT Work Phone: [facility] Physical Therapy Comment on above: Chronic thoracic [place] pain, unspecified back pain laterality (Primary Dx); Degenerative scoliosis in adult patient; 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 Start: 09-08-2023 End: 09-08-2023 ambulatory Shalini Lopez [facility] Work Phone: [facility] Comment on above: Chronic diastolic (c ongestive) heart failure (HCC) (Primary Dx) Start: 09-08-2023 End: 09-08-2023 Telemedicine consultation with patient Shalini Lopez [facility] Work Phone: [facility] Start: 09-02-2023 ambulatory Nadja Walterorion Garza [employer] Comment on above: Population Health Na vigation Outreach (SGLT2) Start: 08-30-2023 End: 08-30-2023 ambulatory Liam Bull PT Work Phone: [facility] Physical Therapy Comment on above: Chronic thoracic [place] pain, unspecified back pain laterality (Primary Dx); 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; Degenerative scoliosis in adult patient Start: 08-21-2023 End: 08-21-2023 ambulatory Immunization Clinic Nurse Fam Work Phone: [facility] Comment on above: Arrived Start: 08-15-2023 Refill Michelle Choudhary MD Work Phone: Dermatology Comment on above: Refill Request Start: 08-06-2023 End: 08-06-2023 Patient encounter procedure Migel Garcia PA-C Work Phone: [facility] [place] Comment on above: 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 (Primary Dx); Degenerative scoliosis in adult patient; Chronic thoracic back pain, unspecified back pain laterality Start: 08-04-2023 End: 08-04-2023 Patient encounter procedure Bone 2 [facility] Start: 08-04-2023 End: 08-04-2023 Subsequent hospital visit by physician [facility] A21 2 Radiology Comment on above: Asymptomatic postmen opausal state [Z78.0] Start: 07-26-2023 End: 07-26-2023 Patient encounter procedure Cristina FINE Work Phone: Audiology Comment on above: Sensorineural hearin g loss, bilateral (Primary Dx) Start: 07-08-2023 End: 07-08-2023 Patient encounter procedure Mfi Wstr Work Phone: [facility] Start: 07-08-2023 End: 07-08-2023 Subsequent hospital visit by physician [facility] W[facility] Work Phone: Nuclear Medicine Comment on above: Medicare annual well ness visit, subsequent [Z00.00] Start: 07-05-2023 Telephone encounter Susannah Clemente MD Work Phone: [facility] Start: 07-05-2023 End: 07-05-2023 Patient encounter procedure Susannah Clemente MD Work Phone: [facility] Comment on above: Medicare annual well ness visit, subsequent (Primary Dx); Asymptomatic postmenopausal state; Thoracogenic scoliosis, unspecified spinal region; Chronic thoracic back pain, unspecified back pain laterality; Decreased hearing of both ears; Anemia due to stage 3b chronic kidney disease (HCC); Epigastric pain; Hypothyroidism, unspecified type Start: 04-08-2023 End: 04-08-2023 ambulatory Kelsi Otto [facility] Physical Therapy Comment on above: Acute right-sided th oracic back pain (Primary Dx) Start: 04-02-2023 End: 04-02-2023 ambulatory Arrhythmia Monitoring Lab Work Phone: Cardiology Comment on above: Event (ZIO PATCH) Start: 04-01-2023 End: 04-01-2023 Subsequent hospital visit by physician [facility] Work Phone: Radiology Comment on above: Epigastric abdominal tenderness without rebound tenderness [R10.816] Start: 03-23-2023 End: 03-23-2023 Office outpatient visit 15 minutes Susannah Clemente MD Work Phone: [facility] Comment on above: Rib pain on right si de (Primary Dx); Epigastric abdominal tenderness without rebound tenderness; Thoracogenic scoliosis, unspecified spinal region Start: 03-08-2023 ambulatory Susannah buchanan MD Work Phone: [facility] Comment on above: Back Pain ([place]) Start: 03-08-2023 End: 03-08-2023 Subsequent hospital visit by physician Xr [facility]am Mob Work Phone: Radiology Comment on above: Acute right-sided th oracic back pain [M54.6] Start: 02-20-2023 ambulatory Susannah buchanan MD Work Phone: [facility] [place] Comment on above: medical massages Start: 01-30-2023 End: 01-30-2023 Patient encounter procedure Kelsi Zavala [employer] JUDGE.NETWORKER Work Phone: [facility] Comment on above: Difficulty swallowin g pills (Primary Dx); Pharyngitis, unspecified etiology Start: 01-15-2023 End: 01-15-2023 Subsequent hospital visit by physician Xr [facility] [place] [facility] Work Phone: Radiology Comment on above: Exertional dyspnea [ R06.09] Start: 01-06-2023 Documentation procedure Mammog yang Coordinator [facility] Start: 01-06-2023 Letter encounter Mammography Coordinator [facility] Department Start: 01-05-2023 End: 01-05-2023 Patient encounter procedure Alicia Hylton APRN.NETWORKER Work Phone: [facility] Comment on above: Fibrocystic breast c hanges [...] End: 11-20-2022 Patient encounter procedure Le [place] [facility] JUDGE.NETWORKER Work Phone: Cardiology Comment on above: Chronic heart failur e with preserved ejection fraction (HCC) (Primary Dx) Start: 10-29-2022 Telephone encounter Susannah Clemente MD Work Phone: [facility] Comment on above: Results Start: 10-08-2022 Telephone encounter Sandhya Martinez APRLIZZY Work Phone: [facility] Comment on above: Results Start: 10-08-2022 End: 10-08-2022 Subsequent hospital visit by physician [facility] Work Phone: Radiology Comment on above: Urinary retention [R 33.9] Start: 10-05-2022 End: 10-05-2022 Office outpatient visit 15 minutes Ramandeep Nieto PA-C Work Phone: [facility] Comment on above: Pain with urination (Primary Dx) Start: 10-01-2022 End: 10-01-2022 Office outpatient visit 25 minutes Susannah Clemente MD Work Phone: [facility] Comment on above: Stage 3 chronic kidn [...] ambulatory Susannah buchanan MD Work Phone: [facility] Comment on above: Anemia Start: 10-01-2022 E-mail encounter fro m caregiver Susannah Clemente MD Work Phone: [facility] Start: 09-14-2022 End: 09-14-2022 ambulatory Rosendo Rodgers MD Work Phone: Hematology/Oncology Comment on above: Anemia due to stage 3b chronic kidney disease (HCC) (Primary Dx) Start: 09-14-2022 End: 09-14-2022 Telemedicine consultation with patient Rosendo Rodgers MD Work Phone: [facility] Start: 09-09-2022 Telephone encounter Rosendo watkins MD Work Phone: Hematology/Oncology Comment on above: Lab Orders; Care Critical Care Transport Nurse rdinator - Other Start: 09-02-2022 End: 09-02-2022 [...] Susannah Clemente MD Work Phone: [facility] [place] Comment on above: Encounter for immuni zation (Primary Dx); 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 disease, or chronic kidney disease (HCC) Start: 06-01-2022 ambulatory Dennys Guzman MD Work Phone: [facility] Start: 06-01-2022 Patient encounter procedure Dennys Guzman MD Work Phone: [facility] Start: 2022 ambulatory Paul dawson MD [...] encounter procedure Rosendo Rodgers MD Work Phone: [facility] Start: 04-14-2022 End: 04-14-2022 Patient encounter procedure Susannah Clemente MD Work Phone: [facility] [place] Comment on above: Anemia, unspecified type (Primary [...] encounter Susannah Clemente MD Work Phone: [facility] Comment on above: Results Start: 02-17-2022 End: 02-17-2022 Nursing evaluation of patient and report Leigh Abreu RN Work Phone: Orthopaedics Comment on above: Primary osteoarthrit is of first carpometacarpal joint of left hand (Primary Dx) Start: 02-10-2022 End: 02-10-2022 ambulatory Kelsi Rosa OT/L Work Phone: [facility] Comment on above: Thumb pain, left (Pr imary Dx); Primary osteoarthritis of first carpometacarpal joint of left hand Start: 02-03-2022 End: 02-03-2022 ambulatory Laverne Helms OT/L Work Phone: [facility] Comment on above: Thumb pain, left (Pr imary Dx); Primary osteoarthritis of first carpometacarpal joint of left hand Start: 01-27-2022 End: 01-27-2022 ambulatory Laverne Helms OT/L Work Phone: [facility] Comment on above: Thumb pain, left (Pr imary Dx); NO SHOW Start: 01-20-2022 End: 01-20-2022 ambulatory Kelsi Moe OT/L Work Phone: [facility] Comment on above: Thumb [...] 12-24-2020 Subsequent hospital visit by physician Xr [facility] Fam Work Phone: Radiology Comment on above: Left wrist pain [M25 .532] Start: 07-30-2020 End: 07-30-2020 Subsequent hospital visit by physician Clinic [facility] Work Phone: Mammography Comment on above: Fibrocystic breast c hanges of both breasts [N60.11, N60.12] Start: 08-26-2018 Ambulatory SCOTTY BERRY Facility :[facility] Start: 02-07-2018 End: 02-07-2018 Ambulatory SCOTTY BERRY [facility] Start: 08-26-2017 End: 08-26-2017 Ambulatory SCOTTY BERRY [facility] Start: 10-05-2011 End: 09-19-2020 Patient encounter status Susannah Clemente MD Work Phone: [facility] Procedures Date Procedure Procedure Detail Performing Clinician Start: 04-03-2025 Echo tthrc r-t 2d w/wom-mode compl spec&colr d Paul Bautista MD Work Phone: Start: 07-26-2024 Level iv surg pathol ogy gross&microscopic exam Joanie House MD Work Phone: Start: 07-17-2024 Urnls dip stick/tabl et rgnt auto w/o microscopy Johan Brantley [employer] JUDGE.NETWORKER Work Phone: Start: 07-14-2024 Radiologic exam ches t 2 views Susannah Clemente MD Work Phone: Start: 07-03-2024 Ecg routine ecg w/le ast 12 lds i&r only [facility] Provider Start: 06-26-2024 Urnls dip stick/tabl et rgnt auto w/o microscopy Emilee Crump [employer] JUDGE.NETWORKER Work Phone: Start: 03-28-2024 Adult depression scr eening assessment Susannah Clemente MD Work Phone: Start: 01-07-2024 Screening digital br east tomosynthesis bi Alicia Hylton CIRCUIT [address] JUDGE.NETWORKER Work Phone: Start: 11-06-2023 SARS-CoV-2, Influenz a [...] Us abdominal real ti me w/image limited Susannha Clemente MD Work Phone: Start: 03-08-2023 Radex ribs uni w/pos teroant ch minimum 3 views Susannah Clemente MD Work Phone: Start: 01-15-2023 Radiologic exam ches t 2 views Susannah Clemente MD Work Phone: Start: 01-05-2023 NICOLE SCREENING W MICHELLE Joan izabel Hylton CIRCUIT [employer] JUDGE.NETWORKER Work Phone: Start: 11-24-2022 Injection 1 tendon sheath/ligament aponeurosis Erwin Maria MD Work Phone: Start: 10-08-2022 Us retroperitoneal r eal time w/image complete Susannah Clemente MD Work Phone: Start: 10-05-2022 Urnls dip stick/tabl et rgnt auto w/o microscopy Sangita Maddox PA-C Work Phone: Start: 08-08-2022 INFLUENZA VACCINE QUADRIVALENT 6 MO - 64 YRS IM Ameya Us DO Work Phone: Start: 07-16-2022 PFIZER-BIONTGrowlife COVI D-19 BIVALENT BOOSTER VACCINE, AGE 12+ YR Ssuannah Clemente MD Work Phone: Start: 08-18-2021 NICOLE SCREENING W MICHELLENarciso Mtz PA-C Work Phone: Start: 12-24-2020 Radex wrist complete minimum 3 views Sangita Maddox PA-C Work Phone: Start: 10-17-2019 12 lead ECG Plan of Treatment Date Care Activity Detail Author Start: 12-27-2033 Urine microalbumin profile DTaP,Tdap,Td Vaccine (3 - Td or Tdap) [facility] Start: 02-02-2028 Diabetes Screening Diabetes Screening [facility] Start: 06-24-2027 Diabetes Screening Diabetes Screening [facility] Start: 11-02-2026 Diabetes Screening Diabetes Screening [facility] Start: 04-26-2026 DIABETES SCREEN DIABETES SCREEN [facility] Start: 04-26-2026 Diabetes Screening Diabetes Screening [facility] Start: 03-27-2026 Medicare Annual Wellness Visit Medicare Annual Wellness Visit [facility] Start: 01-08-2026 DIABETES SCREEN DIABETES SCREEN [facility] Start: 10-04-2025 End: 10-04-2025 Patient encounter procedure 10/04/2025 11:30 AM EST Office Visit Cardiology [address] [place] [address] Paul Bautista MD [address] [place] [address] DX: Chronic diastolic HF Cardiology Comment on above: DX: Chronic diastolic HF Start: 10-02-2025 End: 10-02-2025 Patient encounter procedure 10/02/2025 12:50 PM EST Office Visit [facility] [place] [address] [place], [place] [address] Susannah Clemente MD [address] [place], [place] [id number] Return in about 6 months (around 09/26/2025). [facility] [place] Comment on above: Return in about 6 months (around 025). Start: 09-11-2025 DIABETES SCREEN DIABETES SCREEN [facility] Start: 07-19-2025 End: 07-19-2025 Patient encounter procedure 07/19/2025 11:30 AM EDT Office Visit Gastroenterology [address] [address] Virgil Gomez MD [address] [place] [address] Epigastric pain [R10.13] Gastroenterology Comment on above: Epigastric pain [R10.13] Start: 06-24-2025 Hepatitis B surface antibody level LDL Cholesterol [facility] Start: 06-22-2025 End: 06-22-2025 Patient encounter procedure [facility] Comment on above: Annual breast exam Start: 06-07-2025 End: 06-07-2025 Patient encounter procedure 06/07/2025 11:00 AM EDT Office Visit Audiology [address] [address] Isa Hartman, AUD [address] [place] [address] 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] Audiology Comment on above: 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] Start: 06-01-2025 DIABETES SCREEN DIABETES SCREEN [facility] Start: 2025 End: 2025 Patient encounter procedure Radiology Comment on above: increasing sharp pain right hand Start: 05-21-2025 DIABETES SCREEN DIABETES SCREEN [facility] Start: 04-24-2025 End: 04-24-2025 Patient encounter procedure 04/24/2025 11:00 AM EDT Appointment Radiology [address] [place], [place] [address] Epigastric pain [R10.13] Radiology Comment on above: Epigastric pain [R10.13] Start: 04-13-2025 End: 04-13-2025 Patient encounter procedure 04/13/2025 4:00 PM EDT Office Visit Gastroenterology [address] [address] Virgil Gomez MD [address] [place] [address] Epigastric pain [R10.13] Gastroenterology Comment on above: Epigastric pain [R10.13] Start: 04-07-2025 End: 04-07-2025 Patient encounter procedure 04/07/2025 11:00 AM EDT Office Visit [facility] [place] [address] [place], [place] [id number] Susannah Clemente MD [address] [place], [place] [phone] medicare wellness [facility] [place] Comment on above: medicare wellness Start: 04-03-2025 End: 07-03-2025 Basic metabolic 2000 panel - Serum or Plasma BASIC METABOLIC PANEL Lab Routine Chronic diastolic (congestive) heart failure (HCC) Expected: 04/03/2025, Expires: 07/03/2025 [facility] Comment on above: Expected: 04/03/2025, Expires: 5 Start: 04-03-2025 End: 07-03-2025 Natriuretic peptide.B prohormone N-Terminal [Mass/volume] in Serum or Plasma NT PRO BNP Lab Routine Chronic diastolic (congestive) heart failure (HCC) Expected: 04/03/2025, Expires: 07/03/2025 [facility] Work Phone: Comment on above: Expected: 04/03/2025, Expires: 5 Start: 04-03-2025 End: 05-03-2026 PET+CT Heart WO contrast NM PET/CT CARDIAC PERF REST/STRESS Radiology Routine Encounter for screening for cardiovascular disorders Expected: 04/03/2025, Expires: 05/03/2026 [facility] Comment on above: Expected: 04/03/2025, Expires: 6 Start: 04-03-2025 End: 04-03-2025 Patient encounter procedure Cardiology Comment on above: Heart Failure Start: 03-30-2025 End: 03-30-2025 Echocardiography ECHO Cardiology Routine Chronic diastolic (congestive) heart failure (HCC) Expected: 03/30/2025, Expires: 03/30/2025 [facility] Work Phone: Comment on above: Expected: 03/30/2025, Expires: 5 Start: 03-28-2025 Anxiety Screening Anxiety Screening [facility] Start: 03-28-2025 Depression Screening Depression Screening [facility] Start: 03-27-2025 End: 03-27-2025 Patient encounter procedure 03/27/2025 3:50 PM EDT Office Visit [facility] [place] [address] [place] [address] Susannah Clemente MD [address] [place] [address] MEDICARE WELLNESS [facility] [place] Comment on above: MEDICARE WELLNESS Start: 03-27-2025 End: 06-26-2025 C reactive protein [Mass/volume] in Serum or Plasma by High sensitivity method HIGH SENSITIVITY C-REACTIVE PROTEIN Lab Routine Atherosclerosis of [place] coronary artery of [place] heart without angina pectoris Expected: 03/27/2025, Expires: 06/26/2025 [facility] Work Phone: Comment on above: Expected: 03/27/2025, Expires: Start: 02-20-2025 End: 02-20-2025 Patient encounter procedure Radiology Comment on above: increasing sharp pain right hand Start: 02-15-2025 End: 02-15-2025 Patient encounter procedure 02/15/2025 9:30 AM EDT Office Visit [facility] [address] [place] [address] Susannah Clemente MD [address] [place] [address] Return in about 4 months (around 11/02/2024) for Medicare Wellness. [facility] [place] Comment on above: Return in about 4 months (around 11/02/19) for Medicare Wellness. Start: 01-16-2025 End: 01-16-2025 Patient encounter procedure 01/16/2025 9:50 AM EDT Office Visit [facility] [address] [place] [address] Susannah Clemente MD [address] [place] [address] medicare wellness Internal [facility] [place] Comment on above: medicare wellness Start: 11-15-2024 End: 02-14-2025 CBC W Auto Differential panel - Blood COMPLETE BLOOD COUNT AND DIFFERENTIAL Lab Routine 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) Expected: 11/15/2024, Expires: 02/14/2025 [facility] Work Phone: Comment on above: Expected: 11/15/2024, Expires: Start: 11-09-2024 End: 11-09-2024 Patient encounter procedure 11/09/2024 11:10 AM EST Office Visit [facility] [place] [address] [place], [place] [address] Susannah Cleemnte MD [address] [place], [place] [id number] Return in about 4 months (around 11/02/2024) for Medicare Wellness. [facility] [place] Comment on above: Return in about 4 months (around 11/02/19) for Medicare Wellness. Start: 10-18-2024 Advance Directive Discussion Advance Directive Discussion [facility] Start: 07-27-2024 End: 07-27-2024 Patient encounter procedure 07/27/2024 10:30 AM EDT Office Visit Cardiology [address] [address] Exertional dyspnea [R06.09] Cardiology Comment on above: Exertional dyspnea [R06.09] Start: 07-26-2024 End: 07-26-2024 Patient encounter procedure 07/26/2024 1:50 PM EDT Office Visit Dermatology [address] [address] Michelle Choudhary MD [address] [place] [address] follow up Dermatology Comment on above: follow up Start: 07-14-2024 End: 07-14-2024 Patient encounter procedure 07/14/2024 9:30 AM EDT Appointment Radiology [address] [place] [address] XR CHEST 2V FRONTAL/LAT Radiology Comment on above: XR CHEST 2V FRONTAL/LAT Start: 07-12-2024 End: 07-12-2024 Patient encounter procedure 07/12/2024 9:10 AM EDT Office Visit [facility] [place] [address] [place] [address] Beau Garcia MD [address] [place] [address] SOB twice [facility] Comment on above: SOB twice Start: 07-10-2024 End: 07-10-2024 Patient encounter procedure 07/10/2024 11:00 AM EDT Office Visit [facility] [address] [place] [address] Susannah Clemente MD [address] [place] [address] f/u [facility] Comment on above: f/u Start: 07-03-2024 End: 07-03-2024 Patient encounter procedure 07/03/2024 10:20 AM EDT Office Visit [facility] [address] [place] [address] Susannah Clemente MD [address] [place] [address] f/u [facility] Comment on above: f/u Start: 06-28-2024 End: 09-27-2024 Basic metabolic 2000 panel - Serum or Plasma BASIC METABOLIC PANEL Lab Routine Essential hypertension 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) Expected: 06/28/2024, Expires: 09/27/2024 [facility] Comment on above: Expected: 06/28/2024, Expires: Start: 06-28-2024 End: 09-27-2024 Lipid 1996 panel - Serum or Plasma LIPID PANEL BASIC Lab Routine Cerebral microvascular disease Expected: 06/28/2024, Expires: 09/27/2024 [facility] Work Phone: Comment on above: Expected: 06/28/2024, Expires: Start: 06-26-2024 End: 09-25-2024 Bacteria identified in Urine by Culture [facility] Work Phone: Comment on above: Expected: 06/26/2024, Expires: Ordered: 06/26/2024 Start: 06-18-2024 Covid-19 Vaccine ( season) Covid-19 Vaccine () [facility] Start: 06-18-2024 Covid-19 Vaccine ( season) Covid-19 Vaccine () [facility] Start: 06-18-2024 Influenza vaccination Influenza Vaccine (#1) [facility] Start: 04-12-2024 Hepatitis B surface antibody level LDL CHOLESTEROL [facility] Start: 03-31-2024 Orders Only 03/31/2024 Orders Only Cardiology [address] [place] [address] Paul Bautista MD [address] [place] [address] Cardiology Start: 03-30-2024 End: 03-30-2024 Patient encounter procedure 03/30/2024 2:45 PM EDT Office Visit Cardiology [address] [place] [address] Paul Bautista MD [address] [place], [place] [id number] Main, Nurse Card [facility] [address] [place] [address] Dx: Chronic diastolic (congestive) heart failure (HCC) [I50.32 (ICD-10-CM)] Cardiology Comment on above: Dx: Chronic diastolic (congestive) heart failure (HCC) [I50.32 (ICD-10-CM)] Start: 03-28-2024 End: 03-28-2024 Patient encounter procedure 03/28/2024 3:50 PM EDT Office Visit [facility] [place] [address] [place], [place] [id number] Susannah Clemente MD [address] [place], [place] [phone] Return in about 4 months (around 03/16/2024). [facility] [place] Comment on above: Return in about 4 months (around 03/16/20). Start: 03-19-2024 DIABETES SCREEN DIABETES SCREEN [facility] Start: 01-15-2024 Covid-19 Vaccine () Covid-19 Vaccine () [facility] Start: 11-06-2023 [facility] Start: 11-06-2023 End: 11-06-2023 [facility] Start: 10-18-2023 Behavioral Health Screening Behavioral Health Screening [facility] Start: 09-30-2023 End: 12-30-2023 Basic metabolic 2000 panel - Serum or Plasma BASIC METABOLIC PNL Lab Routine Chronic diastolic (congestive) heart failure (HCC) Expected: 09/30/2023, Expires: 12/30/2023 [facility] Work Phone: Comment on above: Expected: 09/30/2023, Expires: 4 Start: 09-30-2023 End: 12-30-2023 Natriuretic peptide.B prohormone N-Terminal [Mass/volume] in Serum or Plasma NT PRO BNP Lab Routine Chronic diastolic (congestive) heart failure (HCC) Expected: 09/30/2023, Expires: 12/30/2023 [facility] Work Phone: Comment on above: Expected: 09/30/2023, Expires: 4 Start: 07-05-2023 End: 09-04-2023 Thyrotropin [Units/volume] in Serum or Plasma TSH BLD Lab Routine Hypothyroidism, unspecified type Expected: 07/05/2023, Expires: 09/04/2023 [facility] Work Phone: Comment on above: Expected: 07/05/2023, Expires: 3 Start: 06-18-2023 Covid-19 Vaccine () Covid-19 Vaccine () [facility] Start: 06-18-2023 Influenza vaccination [facility] Start: 04-02-2023 End: 11-20-2023 Echocardiography ECHO Cardiology Routine Chronic heart failure with preserved ejection fraction (HCC) Expected: 04/02/2023, Expires: 11/20/2023 [facility] Work Phone: Comment on above: Expected: 04/02/2023, Expires: 4 Start: 01-12-2023 End: 03-14-2023 Basic metabolic 2000 panel - Serum or Plasma BASIC METABOLIC PNL Lab Routine Chronic heart failure with preserved ejection fraction (HCC) Expected: 01/12/2023, Expires: 03/14/2023 [facility] Work Phone: Comment on above: Expected: 01/12/2023, Expires: 3 Start: 01-12-2023 End: 03-14-2023 Natriuretic peptide.B prohormone N-Terminal [Mass/volume] in Serum or Plasma NT PRO BNP Lab STAT Chronic heart failure with preserved ejection fraction (HCC) Expected: 01/12/2023, Expires: 03/14/2023 [facility] Work Phone: Comment on above: Expected: 01/12/2023, Expires: 3 Start: 12-30-2022 End: 03-01-2023 Basic metabolic 2000 panel - Serum or Plasma BASIC METABOLIC PNL Lab Routine Stage 3 chronic kidney disease, unspecified whether stage 3a or 3b CKD (HCC) Expected: 12/30/2022, Expires: 03/01/2023 [facility] Work Phone: Comment on above: Expected: 12/30/2022, Expires: 3 Start: 12-08-2022 Hepatitis B surface antibody level LDL CHOLESTEROL [facility] Start: 11-15-2022 COVID-19 VACCINE (5 - Moderna series) COVID-19 VACCINE (5 - Moderna series) [facility] Start: 10-18-2022 ADVANCE DIRECTIVE DISCUSSION ADVANCE DIRECTIVE DISCUSSION [facility] Start: 10-18-2022 DEPRESSION ASSESSMENT DEPRESSION ASSESSMENT [facility] Start: 09-11-2022 End: 11-11-2022 Ferritin [Mass/volume] in Serum or Plasma [facility] Work Phone: Comment on above: Expected: 09/11/2022, Expires: 3 Start: 09-11-2022 End: 11-11-2022 Iron and Iron binding capacity panel - Serum or Plasma [facility] Work Phone: Comment on above: Expected: 09/11/2022, Expires: 3 Start: 09-02-2022 End: 11-02-2022 Basic metabolic 2000 panel - Serum or Plasma BASIC METABOLIC PNL Lab Routine Chronic heart failure with preserved ejection fraction (HFpEF) (HCC) Expected: 09/02/2022, Expires: 11/02/2022 [facility] Work Phone: Comment on above: Expected: 09/02/2022, Expires: 3 Start: 09-02-2022 End: 11-02-2022 Natriuretic peptide.B prohormone N-Terminal [Mass/volume] in Serum or Plasma NT PRO BNP Lab Routine Chronic heart failure with preserved ejection fraction (HFpEF) (HCC) Expected: 09/02/2022, Expires: 11/02/2022 [facility] Work Phone: Comment on above: Expected: 09/02/2022, Expires: 3 Start: 08-15-2022 End: 10-15-2022 Basic metabolic 2000 panel - Serum or Plasma BASIC METABOLIC PNL Lab Routine 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 disease, or chronic kidney disease (HCC) Expected: 08/15/2022, Expires: 10/15/2022 [facility] Work Phone: Comment on above: Expected: 08/15/2022, Expires: 2 Start: 08-15-2022 Urine microalbumin profile [facility] Start: 06-18-2022 Influenza vaccination INFLUENZA (#1) [facility] Start: 06-14-2022 End: 08-14-2022 Thyrotropin [Units/volume] in Serum or Plasma TSH BLD Lab Routine Hypothyroidism, unspecified type Expected: 06/14/2022, Expires: 08/14/2022 [facility] Work Phone: Comment on above: Expected: 06/14/2022, Expires: 2 Start: 2022 End: 07-29-2022 Basic metabolic 2000 panel - Serum or Plasma BASIC METABOLIC PNL Lab Routine Chronic heart failure with preserved ejection fraction (HFpEF) (HCC) Expected: 2022, Expires: 07/29/2022 [facility] Work Phone: Comment on above: Expected: 2022, Expires: 2 Start: 05-18-2022 End: 07-18-2022 Basic metabolic 2000 panel - Serum or Plasma BASIC METABOLIC PNL Lab Routine 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 disease, or chronic kidney disease (HCC) Chronic heart failure with preserved ejection fraction (HFpEF) (HCC) Expected: 05/18/2022, Expires: 07/18/2022 [facility] Work Phone: Comment on above: Expected: 05/18/2022, Expires: 2 Start: 05-18-2022 End: 07-18-2022 HIGH SENSITIVITY TROPONIN T HIGH SENSITIVITY TROPONIN T Lab Routine Chronic heart failure with preserved ejection fraction (HFpEF) (HCC) Expected: 05/18/2022, Expires: 07/18/2022 [facility] Work Phone: Comment on above: Expected: 05/18/2022, Expires: 2 Start: 05-18-2022 End: 07-18-2022 Natriuretic peptide.B prohormone N-Terminal [Mass/volume] in Serum or Plasma NT PRO BNP Lab Routine 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 disease, or chronic kidney disease (HCC) Chronic heart failure with preserved ejection fraction (HFpEF) (HCC) Expected: 05/18/2022, Expires: 07/18/2022 [facility] Work Phone: Comment on above: Expected: 05/18/2022, Expires: 2 Start: 05-14-2022 End: 07-14-2022 Comprehensive metabolic 2000 panel - Serum or Plasma COMP METABOLIC PANEL Lab Routine Telogen effluvium Encounter for medication monitoring Expected: 05/14/2022, Expires: 07/14/2022 [facility] Work Phone: Comment on above: Expected: 05/14/2022, Expires: 2 Start: 04-17-2022 End: 04-17-2023 Cobalamin (Vitamin B12) [Mass/volume] in Serum or Plasma [facility] Work Phone: Comment on above: Expected: 04/17/2022, Expires: 3 Start: 04-17-2022 End: 04-17-2023 Ferritin [Mass/volume] in Serum or Plasma [facility] Work Phone: Comment on above: Expected: 04/17/2022, Expires: 3 Start: 04-17-2022 End: 06-17-2022 Folate [Mass/volume] in Serum or Plasma [facility] Work Phone: Comment on above: Expected: 04/17/2022, Expires: 2 Start: 04-17-2022 End: 06-17-2022 Haptoglobin [Mass/volume] in Serum or Plasma [facility] Work Phone: Comment on above: Expected: 04/17/2022, Expires: 2 Start: 04-17-2022 End: 04-17-2023 Iron and Iron binding capacity panel - Serum or Plasma [facility] Work Phone: Comment on above: Expected: 04/17/2022 (Approximate), Expi res: 04/17/2023 Start: 12-19-2021 COVID-19 VACCINE (4 - Booster for Moderna series) COVID-19 VACCINE (4 - Booster for Moderna series) [facility] Start: 1996 RSV Vaccine (1 - 1-dose 60+ series) RSV Vaccine (1 - 1-dose 60+ series) [facility] Ambulatory bp mntr w /sw 24 hr+ rec scan lindsey i&r AMBULATORY BP MONITORING Cardiology Routine 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 disease, or chronic kidney disease (HCC) Ordered: 05/18/2022 [facility] Work Phone: Comment on above: Ordered: 05/18/2022 Bacteria identified in Urine by Culture URINE CULTURE Microbiology Routine Pain with urination 10/05/2022 4:32 PM EST [facility] Work Phone: Bacteria identified in Urine by Culture URINE CULTURE Microbiology Routine Urgency of urination 07/17/2024 11:37 AM EDT [facility] Work Phone: End: 01-29-2026 Basic metabolic 2000 panel - Serum or Plasma BASIC METABOLIC PANEL Lab Routine 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 disease, or chronic kidney disease (HCC) Every 6 months for 4 Occurrences starting 01/29/2025 until 01/29/2026 [facility] Comment on above: Every 6 months for 4 Occurrences startin g 01/29/2025 until 01/29/2026 End: 10-01-2023 CBC W Auto Differential panel - Blood CBC + DIFF Lab Routine Anemia due to stage 3b chronic kidney disease (HCC) Every 3 months for 4 Occurrences starting 10/01/2022 until 10/01/2023 [facility] Work Phone: Comment on above: Every 3 months for 4 Occurrences startin g 10/01/2022 until 10/01/2023 End: 01-29-2026 CBC W Auto Differential panel - Blood COMPLETE BLOOD COUNT AND DIFFERENTIAL Lab Routine Anemia due to stage 3b chronic kidney disease (HCC) Every 3 months for 8 Occurrences starting 01/29/2025 until 01/29/2026 [facility] Work Phone: Comment on above: Every 3 months for 8 Occurrences startin g 01/29/2025 until 01/29/2026 End: 01-18-2025 DBT Breast - bilateral screening NICOLE SCREENING W MICHELLE Radiology Routine Personal history of malignant neoplasm of breast Encounter for screening mammogram for malignant neoplasm of breast 1 Occurrences starting 12/20/2023 until 01/18/2025 [facility] Work Phone: Comment on above: 1 Occurrences starting 12/20/2023 until 01/18/2025 End: 01-29-2025 DBT Breast - bilateral screening NICOLE SCREENING W MICHELLE Radiology Routine Encounter for screening mammogram for breast cancer 1 Occurrences starting 12/31/2023 until 01/29/2025 [facility] Work Phone: Comment on above: 1 Occurrences starting 12/31/2023 until 01/29/2025 End: 08-03-2024 DXA-AXIAL SKELETON DXA-AXIAL SKELETON Radiology Routine Asymptomatic postmenopausal state Medicare annual wellness visit, subsequent 1 Occurrences starting 07/05/2023 until 08/03/2024 [facility] Work Phone: Comment on above: 1 Occurrences starting 07/05/2023 until 08/03/2024 DXA-AXIAL SKELETON DXA-AXIAL SKE LETON Radiology Routine Asymptomatic postmenopausal state Medicare annual wellness visit, subsequent 08/04/2023 12:52 PM EDT [facility] Work Phone: ECG COMPLETE ECG COMPLETE ECG Routine 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 disease, or chronic kidney disease (HCC) Exertional dyspnea Ordered: 07/03/2024 [facility] Work Phone: Comment on above: Ordered: 07/03/2024 End: 09-13-2025 Echocardiography ECHO Cardiology Routine Chronic diastolic (congestive) heart failure (HCC) 1 Occurrences starting 09/13/2024 until 09/13/2025 [facility] Work Phone: Comment on above: 1 Occurrences starting 09/13/2024 until 09/13/2025 FECAL LACTOFERRIN/LEUKOCYTES FECAL LACTOFERRIN/LEUKOCYTES Lab Routine Collagenous colitis Ordered: 03/28/2024 [facility] Comment on above: Ordered: 03/28/2024 HEARING TEST/AUDIOGRAM HEARING T EST/AUDIOGRAM Audiology Routine Medicare annual wellness visit, subsequent Decreased hearing of both ears Ordered: 07/05/2023 [facility] Work Phone: Comment on above: Ordered: 07/05/2023 End: 03-28-2026 HEARING TEST/AUDIOGRAM HEARING TEST/AUDIOGRAM Audiology Routine Decreased hearing of both ears 1 Occurrences starting 03/27/2025 until 03/28/2026 [facility] Comment on above: 1 Occurrences starting 03/27/2025 until 03/28/2026 Hemoglobin.gastroint shanon nal.lower [Presence] in Stool by Immunoassay FECAL OCCULT BLOOD TEST Lab Routine Anemia, unspecified type Ordered: 04/14/2022 [facility] Work Phone: Comment on above: Ordered: 04/14/2022 End: 08-03-2024 Hepatobil syst imag inc gb w/pharma intervenj NM HEPATOBILIARY W EF AND/OR RX Radiology Routine Medicare annual wellness visit, subsequent Epigastric pain 1 Occurrences starting 07/05/2023 until 08/03/2024 [facility] Work Phone: Comment on above: 1 Occurrences starting 07/05/2023 until 08/03/2024 End: 02-08-2025 MG Breast - right Diagnostic for implant NICOLE DIAGNOSTIC RIGHT Radiology Routine Abnormal mammogram 1 Occurrences starting 01/10/2024 until 02/08/2025 [facility] Work Phone: Comment on above: 1 Occurrences starting 01/10/2024 until 02/08/2025 End: 04-26-2026 MR Biliary ducts and Pancreatic duct WO and W contrast IV MRI PANC/LEYDA WO/W IVCON Radiology Routine Epigastric pain 1 Occurrences starting 03/27/2025 until 04/26/2026 [facility] Comment on above: 1 Occurrences starting 03/27/2025 until 04/26/2026 End: 04-26-2026 MR Unspecified body region 3D post processing MRI 3D POST PROCESSING Radiology Routine Epigastric pain 1 Occurrences starting 03/27/2025 until 04/26/2026 [facility] Comment on above: 1 Occurrences starting 03/27/2025 until 04/26/2026 Patient Education ED URI, Viral, No Abx (Adult) [facility] Work Phone: Patient referral [facility] Work Phone: PT PLAN OF CARE CERTIFICATION PT PLAN OF CARE CERTIFICATION Procedures Routine Acute right-sided thoracic back pain Ordered: 04/08/2023 [facility] Comment on above: Ordered: 04/08/2023 End: 07-03-2025 STRESS ECHO TREADMILL STRESS ECHO TREADMILL Cardiology Routine Exertional dyspnea 1 Occurrences starting 07/03/2024 until 07/03/2025 [facility] Comment on above: 1 Occurrences starting 07/03/2024 until 07/03/2025 Ther px 1/> areas ea ch 15 minutes massage MASSAGE THERAPY Procedures Routine Chronic back pain, unspecified back location, unspecified back pain laterality Ordered: 02/23/2023 [facility] Work Phone: Comment on above: Ordered: 02/23/2023 End: 04-21-2024 US ABD RIGHT UPPER QUADRANT US ABD RIGHT UPPER QUADRANT Radiology Routine Epigastric abdominal tenderness without rebound tenderness 1 Occurrences starting 03/23/2023 until 04/21/2024 [facility] Work Phone: Comment on above: 1 Occurrences starting 03/23/2023 until 04/21/2024 End: 02-08-2025 US Breast - right limited US BREAST LTD RIGHT Radiology Routine Abnormal mammogram 1 Occurrences starting 01/10/2024 until 02/08/2025 [facility] Work Phone: Comment on above: 1 Occurrences starting 01/10/2024 until 02/08/2025 End: 10-31-2023 US KIDNEY/BLADDER US KIDNEY/BLADDER Radiology Routine Urinary retention 1 Occurrences starting 10/01/2022 until 10/31/2023 [facility] Work Phone: Comment on above: 1 Occurrences starting 10/01/2022 until 10/31/2023 End: 10-31-2023 Us pelvic nonobstetric image dcmtn limited/f/u US PELVIS BLADDER Radiology Routine Urinary retention 1 Occurrences starting 10/01/2022 until 10/31/2023 [facility] Work Phone: Comment on above: 1 Occurrences starting 10/01/2022 until 10/31/2023 End: 08-02-2025 XR Chest PA and Lateral XR CHEST 2V FRONTAL/LAT Radiology Routine Exertional dyspnea 1 Occurrences starting 07/03/2024 until 08/02/2025 [facility] Comment on above: 1 Occurrences starting 07/03/2024 until 08/02/2025 [facility] c [facility] c [facility] Immunizations Immunization Date Immunization Notes Care Provider [facility] 08-21-2023 influenza, injectabl e, quadrivalent, contains preservative Immunization [place] Work Phone: [facility] 08-21-2023 influenza virus vaccine, unspecified formulation Susannah Clemente MD Work Phone: [facility] 08-08-2022 influenza, injectabl e, quadrivalent, contains preservative Immunization Fam Work Phone: [facility] 08-08-2022 influenza virus vaccine, unspecified formulation Susannah Clemente MD Work Phone: [facility] 07-16-2022 COVID-19 booster vaccine, age 12+ yr, bivalent (PFIZER-BIONTGrowlife) Susannah Clemente MD Work Phone: [facility] 09-24-2021 zoster vaccine recombinant Kelsi [place] OT/L Work Phone: [facility] Work Phone: 08-19-2021 influenza, injectabl e, quadrivalent, contains preservative Kelsi [place] OT/L Work Phone: [facility] 06-25-2021 zoster vaccine recombinant Kelsi [place] OT/L Work Phone: [facility] 12-05-2020 COVID-19 vaccine, fu ll dose (MODERNA) Kelsi [place] OT/L Work Phone: [facility] Work Phone: 11-07-2020 COVID-19 vaccine, fu ll dose (MODERNA) Kelsi [place] OT/L Work Phone: [facility] Work Phone: 08-15-2020 influenza, injectabl e, quadrivalent, contains preservative Kelsi [place] OT/L Work Phone: [facility] 09-01-2019 influenza, injectabl e, quadrivalent, contains preservative Kelsi [place] OT/L Work Phone: [facility] 08-12-2018 influenza, injectabl e, quadrivalent, contains preservative Kelsi [place] OT/L Work Phone: [facility] Work Phone: 07-30-2017 influenza, injectabl e, quadrivalent, contains preservative Kelsi [place] OT/L Work Phone: [facility] 07-18-2017 influenza, high dose seasonal, preservative-free Kelsi [place] OT/L Work Phone: [facility] Work Phone: 07-18-2017 influenza, injectabl e, quadrivalent, preservative free [facility] 07-18-2017 influenza, seasonal, injectable, preservative free Kelsi [place] OT/L Work Phone: [facility] 08-21-2016 influenza, injectabl e, quadrivalent, contains preservative Kelsi [place] OT/L Work Phone: [facility] 08-12-2015 influenza, high dose seasonal, preservative-free Kelsi [place] OT/L Work Phone: [facility] 11-22-2014 pneumococcal conjuga te vaccine, 13 valent Kelsi [place] OT/L Work Phone: [facility] 11-22-2014 pneumococcal polysaccharide vaccine, 23 valent Kelsi [place] OT/L Work Phone: [facility] Work Phone: 08-16-2014 influenza, seasonal, injectable Kelsi [place] OT/L Work Phone: [facility] Work Phone: 07-29-2013 influenza virus vaccine, unspecified formulation Kelsi [place] OT/L Work Phone: [facility] 08-15-2012 influenza virus vaccine, unspecified formulation Kelsi [place] OT/L Work Phone: [facility] 08-15-2012 tetanus toxoid, redu emma diphtheria toxoid, and acellular pertussis vaccine, adsorbed Kelsi [place] OT/L Work Phone: [facility] 05-31-2012 pneumococcal conjuga te vaccine, 13 valent Kelsi [place] OT/L Work Phone: [facility] Work Phone: 08-29-2011 influenza virus vaccine, unspecified formulation Kelsi [place] OT/L Work Phone: [facility] 08-15-2010 influenza virus vaccine, unspecified formulation Kelsi [place] OT/L Work Phone: [facility] Work Phone: 08-01-2009 influenza virus vaccine, unspecified formulation Kelsi [place] OT/L Work Phone: [facility] Work Phone: 10-18-2008 zoster vaccine, live Kelsi [place] OT/L Work Phone: [facility] Work Phone: 08-24-2008 influenza virus vaccine, unspecified formulation Kelsi [place] OT/L Work Phone: [facility] Work Phone: 07-20-2008 influenza virus vaccine, unspecified formulation Kelsi [place] OT/L Work Phone: [facility] [facility] 08[facility]2007 influenza virus vaccine, unspecified formulation Kelsi Worcester OT/L Work Phone: [facility] 08-13-2006 influenza virus vaccine, unspecified formulation Kelsi Worcester OT/L Work Phone: [facility] 09-04-2005 influenza virus vaccine, unspecified formulation Kelsi Worcester OT/L Work Phone: [facility] Work Phone: 10-18-2004 tetanus and diphther ia toxoids, adsorbed, preservative free, for adult use (2 Lf of tetanus toxoid and 2 Lf of diphtheria toxoid) Kelsi Worcester OT/L Work Phone: [facility] 10-18-2003 pneumococcal polysaccharide vaccine, 23 valent Kelsi Worcester OT/L Work Phone: [facility] 10-18-1994 hepatitis A vaccine, unspecified formulation Kelsi Worcester OT/L Work Phone: [facility] 10-18-1994 hepatitis B vaccine, adult dosage Kelsi Worcester OT/L Work Phone: [facility] Payers Date Payer Category Payer Medicare MEDICARE MEDICAR E A AND B [id number] 2020-Present [phone] [place] [place] [address] Medicare [id number] 2020 Medicare [id number] 2020 Private Health Insurance PH[employer]ICI [employer]S M[employer] Member Subscriber Plan / Payer (Effective 2020-Present) Name: Zenaida Evans Relation to Subscriber: Self Name: Zenaida Evans Payer ID: Not on file Group ID: Not on file Type: Indemnity Address: [address] [place] [id number] 2020 Unknown PHYSICIANS LISA L PHYSICIANS MUTUAL SUPPLEMENT [id number] 2020-Present [phone] [address] [place] Indemnity [id number] 2020 Unknown PHYSICIANS MUTUA L PHYSICIANS MUTUAL SUPPLEMENT [id number] 2020-Present [phone] [address] [place] Indemnity [id number] 2020 Medicare [id number] 2020 Unknown [id number] Self-pay SELF PAY INSURANCE [id number] Unknown [id number] Social History Date Type Detail Facility Start: 01-20-2012 End: 06-11-2024 Tobacco smoking status OHIS Ex-smoker [facility] Work Phone: Start: 01-19-1955 End: 01-19-1967 History of tobacco use Current smoker [facility] Start: 01-19-1955 End: 01-19-1967 History of tobacco use Cigarette Smoker [facility] Start: 12-29-2021 End: 03-27-2025 Alcohol intake Current drinker of alcohol (finding) [facility] Start: 07-05-2020 History SDOH Alcohol Binge 1 [facility] Start: 09-19-2020 History SDOH Financial 5 [facility] Start: 1935 Sex Assigned At Not on file [facility] Start: 06-29-2020 End: 09-11-2022 Exposure to SARS-CoV-2 (event) Not sure [facility] Work Phone: Start: 05-08-2022 End: 05-18-2022 Exposure to SARS-CoV-2 (event) Unable to assess [facility] Start: 01-20-2012 End: 02-18-2023 Cigarettes smoked current (pack per day) - Reported 1 [facility] Start: 01-20-2012 End: 06-11-2024 Tobacco use and exposure Smokeless tobacco non-user [facility] Start: 03-08-2023 History SDOH Physica l Activity DPW 3 [facility] Start: 03-08-2023 History SDOH Physica l Activity MPS 6 [facility] Start: 03-08-2023 History SDOH Stress 2 [facility] Start: 02-18-2023 End: 03-08-2023 Social connection and isolation panel [facility] In a typical week, how many times do you talk on the telephone with family, friends, or neighbors? Patient refused [facility] Are you now , , , , never or living with a partner? Refused [facility] Do you feel stress - tense, restless, nervous, or anxious, or unable to sleep at night because your mind is troubled all the time - these days [OSQ] Only a little [facility] (I/We) worried whether (my/our) food would run out before (I/we) got money to buy more. DK or Refused [facility] Start: 03-06-2022 Gender identity Identifies as female gender (finding) [facility] How often do you hav e 6 or more drinks on 1 occasion? Never [facility] Start: 11-06-2023 Tobacco smoking status NHIS Unknown if ever smoked [facility] Start: 10-15-2019 None [facility] Start: 10-16-2019 Spouse/ Signif icant Other [facility] Start: 10-16-2019 Non-smoker [facility] Start: 1935 Sex Assigned At Female [facility] Are you now , , , , never or living with a partner? [facility] Do you feel stress - tense, restless, nervous, or anxious, or unable to sleep at night because your mind is troubled all the time - these days [OSQ] To some extent [facility] NEGATED: Highlighted rowStart: ERICKF History of tobacco use Passive smoker [facility] Goals Date Patient Goal Desired Activity /State Personal health goal Functional Status Date Assessment Result Facility 03-27-2025 Total score [AUDIT-C] 0 03/27/20 25 3:59 PM EDT Tara Orona MA [facility] 07-13-2024 Total score [AUDIT-C] -1 024 5:43 AM EDT User, Mychart [facility] 07-13-2024 Functional status Patient declin ed 07/13/2024 5:43 AM EDT User, Mychart Patient declined [facility] 11-24-2019 Are you deaf, or do you have serious difficulty hearing No 11/24/2019 3:17 PM Mary HarrisonRn), RN No [facility] 11-24-2019 Are you blind, or do you have serious difficulty seeing, even when wearing glasses No 11/24/2019 3:17 PM Mary Harrison (Rn), RN No [facility] 11-24-2019 Do you have serious difficulty walking or climbing stairs No 11/24/2019 3:17 PM Mary Harrison (Rn), RN No [facility] 11-24-2019 Do you have difficul ty dressing or bathing No 11/24/2019 3:17 PM Mary Harrison), RN No [facility] 11-24-2019 Because of a physica l, mental, or emotional condition, do you have difficulty doing errands alone such as visiting a physician's office or shopping No 11/24/2019 3:17 PM Mary Harrison (Rn), RN No [facility] Mental Status Date Assessment Result Facility 11-06-2023 Cognitive function Level Of Cons ciousness Awake;Alert;Appropriate;Fol lows Commands [facility] Work Phone: 11-24-2019 Because of a physica l, mental, or emotional condition, do you have serious difficulty concentrating, remembering, or making decisions No 11/24/2019 3:17 PM Mary Harrison (Rn), RN No [facility] Clinical Notes 12-22-2019 to 04-05-2025 Telephone Encounter - Tara Orona MA - 04/05/2025 4:03 PM EDTTelephone Encounter - Tara Orona MA - 04/05/2025 4:03 PM EDTPatient InstructionsPatient InstructionsPatient Instructions Note Date & Type Note Facility 04-05-2025 Telephone encounter Note Placed form in pending paper slot above JOAN''s desk [facility] 04-05-2025 Miscellaneous Notes Placed form in pending paper slot above MA''s desk This is an application to a wellness program at [facility]. I see that her Curtain Cleaner has ordered a stress test and I would have to defer to him if there are any limitations after we receive results of the stress test. Placed form in Dr. Clemente's in basket, please sign documented in this encounter [facility] 04-05-2025 Telephone encounter Note This is an application to a wellness program at [facility]. I see that her Curtain Cleaner has ordered a stress test and I would have to defer to him if there are any limitations after we receive results of the stress test. [facility] 04-04-2025 Telephone encounter Note Preliminary Approval for [...] to ordering physician and to P PET WIRE COATING MACHINE OPERATOR MC with recommendations. If all recommended orders are present route to P PET WIRE COATING MACHINE OPERATOR MC [facility] 04-04-2025 Miscellaneous Notes Preliminary Approval for Scheduling [...] to ordering physician and to P PET WIRE COATING MACHINE OPERATOR MC with recommendations. If all recommended orders are present route to P PET WIRE COATING MACHINE OPERATOR MC This form is used for MAIN CAMPUS APPOINTMENTS ONLY. Is this request for a Main Carpenter PET scan appointment? Yes: Deliverer Food: Divine Calabrese Who do we call to schedule this appointment? Patient Requesting Staff [id number] Area Code + Phone/Pager: N/A PET Orders [...] day/next day medically urgent scans please call [phone] to expedite Send requests to P CARDIAC PET MD MC documented in this encounter [facility] 04-04-2025 Telephone encounter Note This form is used for MAIN CAMPUS APPOINTMENTS ONLY. Is this request for a Main Carpenter PET scan appointment? Yes: Deliverer Food: Divien Calabrese Who do we call to schedule this appointment? Patient Requesting Staff [id number] Area Code + Phone/Pager: N/A PET Orders [...] day/next day medically urgent scans please call [phone] to expedite Send requests to P CARDIAC PET [facility] 04-03-2025 Instructions Paul Bautista MD - 04/03/2025 12:37 PM EDT Thank you for visiting the [facility] at the [facility]. Here are your instructions. 1. Increase indapamide to 2.5mg daily. 2. Continue Farxiga at 5mg daily. 3. Labs in 1 week after starting higher dose. 4. Schedule Stress test. 5. Return in 6 months with plans to discuss testing in interim. Please call with questions or concerns. Office: [phone] Paul Bautista MD documented in this encounter [facility] 04-03-2025 Note HNO ID: [id number] Author: PAUL BAUTISTA MD Service: ? Author Type: Physician Type: Progress Notes Filed: 04/03/2025 12:45 Note Text: [facility] [place] [facility] SECTION OF HEART FAILURE and CARDIAC TRANSPLANT MEDICINE OUTPATIENT VISIT DATE April 03, 2025 OUTPATIENT VISIT TYPE Established Patient PRIMARY CARE PHYSICIAN: Susannah Clemente [address] [place] [id number] CHIEF COMPLAINT: Shortness of breath and chest [...] 03/13/2011 no retinopathy detected -both eyes - [facility] - return in 1 year - Dr. [...] exposure: Never Smokeless (more content not included)... [facility] 04-03-2025 History of Presen t illness Narrative Images from the original note were not included. [facility] [place] [facility] SECTION OF HEART FAILURE and CARDIAC TRANSPLANT MEDICINE OUTPATIENT VISIT DATE April 03, 2025 OUTPATIENT VISIT TYPE Established Patient PRIMARY CARE PHYSICIAN: Susannah Clemente [address] [place] [address] CHIEF COMPLAINT: Shortness of breath and chest [...] 03/13/2011 no retinopathy detected -both eyes - [facility] - return in 1 year - Dr. [...] ENLARGEMENT BORDERLINE ECG Confirmed by CHRIS SERRANO, [facility] ([id number]) on 07/03/2024 3:08:37 PM Latest Reference Range [...] Abs Lymph 1.00 - 4.00 k/uL 1.82 [place]% % 9.6 Abs [place] <0.87 k/uL 0.41 Eosin% % 1.4 Abs [...] non-medical management as above. Paul Bautista MD [facility] Section Of Heart Failure and Cardiac Transplant Medicine [facility] [place] [facility] Desk [id number] [place] [address] documented in this encounter [facility] 04-02-2025 Telephone encounter Note Placed form in Dr. Clemente's in basket, please sign [facility] 03-27-2025 Instructions Susannah Clemente MD - 03/27/2025 [...] review all the medicines you take, even [id number] medicines. As you get older, the way [...] certain medical conditions. documented in this encounter [facility] 03-27-2025 Note HNO ID: [id number] Author: SUSANNAH CLEMENTE MD Service: ? Author Type: Physician Type: Progress Notes Filed: 03/27/2025 17:41 Note Text: Zenaida Evans is a 89 year old female here for a Medicare wellness visit. Recording using mcTEL software for draft documentation of the visit was discussed with the patient/authorized sales training representative; all questions welcomed and answered. Patient/authorized sales training representative agreed to proceed Zenaida Evans is [...] and difficulty walking during a meeting in [facility]. A stress test was performed in July following this event, which showed her heart rate only reached 79% of the maximum, but no ischemia was detected. She has a follow-up appointment with her sewing machine operator floorperson, Dr. Bautista, next week and an echocardiogram [...] Psychology Abena [facility]chor [facility] history review Reviewed and updated problem list, medical/surgical/family/social history, medications, and allergies. FAMILY HISTORY Problem Relation Age of Onset Alzheimer's Disease Mother hypertension/stroke d89 Hypertension Mother Stroke Mother Heart Father heart failure, d 72 other (emphseyma) Sister d 59 other (healthy) Daughter Pancreati (more content not included)... [facility] 03-27-2025 History of Presen t illness Narrative Images from the original note were not included. Zenaida Evans is a 89 year old female here for a Medicare wellness visit. Recording using mcTEL software for draft documentation of the visit was discussed with the patient/authorized sales training representative; all questions welcomed and answered. Patient/authorized sales training representative agreed to proceed Zenaida Evans is [...] and difficulty walking during a meeting in [facility]. A stress test was performed in July following this event, which showed her heart rate only reached 79% of the maximum, but no ischemia was detected. She has a follow-up appointment with her sewing machine operator floorperson, Dr. Bautista, next week and an echocardiogram [...] to stage 3b chronic kidney disease (HCC) ([facility]) Latest Ref Rng & Units 02/01/2025 06/24/2024 [...] record. Dr. Bautista Cardiology Dr. Candace Manning [facility] Alicia Hylton, Breast Psychology Abena Melchor when daughter was sick [facility] GI Medical/Family history review Reviewed and [...] 2009. Assessment and Plan: # Atherosclerosis of [place] coronary artery of [place] heart without angina pectoris (I25.10) # Chronic [...] Bernadette daughter. listed as durable power of county attorney for health care. Discussed COVID booster; [...] Susannah Clemente MD documented in this encounter [facility] 02-05-2025 Telephone encounter Note Pt returning call, Results and recommendations reviewed with Understanding [facility] 02-05-2025 Miscellaneous Notes Pt returning call, Results and recommendations reviewed with Understanding documented in this encounter [facility] 01-19-2025 Telephone encounter Note Mailed to patient [facility] 01-19-2025 Miscellaneous Notes Mailed to patient Order [...] Person calling: spouse: Tommy Call patient at: [phone] (home) [phone] (cell) Was an appointment scheduled: Closing statement: Juliet Maciel documented in this encounter [facility] 01-19-2025 Telephone encounter Note Order placed, please inform patient [facility] 01-19-2025 Telephone encounter Note Spoke with patient and stated that this was ordered in the past by Ruby Hurst and to use the DX on the previous order. Last order was 10/04/2023. [facility] 01-17-2025 Telephone encounter Note Left message for patient to return call. Message can be given upon returned call. [facility] 01-16-2025 Telephone encounter Note Please find out reason for patient wanting medical massage as the order requires a diagnosis [facility] 01-15-2025 Telephone encounter Note Tommy is calling Susannah Clemente MD today to request Orders (Medical Massage) Patient has been identified by name and birthdate. Duration of symptoms: N/A Person calling: spouse: Tommy Call patient at: [phone] (home) [phone] (cell) Was an appointment scheduled: Closing statement: Juliet Maciel [facility] Work Phone: 01-09-2025 Note Addended by: JOANIE HOUSE on: 01/09/2025 03:30 PM Modules accepted: Orders [facility] 03-25-2025 Miscellaneous Notes Addended by: JOANIE HOUSE on: 01/09/2025 03:30 PM Modules accepted: Orders Please see Pt Mychart message Last visit 07/26/24 Please approve prescription and any additional refills and e-script to designated pharmacy. Thank you, Leatha Levin Refills available documented in this encounter [facility] 01-08-2025 Telephone encounter Note Patient is requesting from [facility]: Refills as follows: Requested Prescriptions Pending Prescriptions Disp Refills cloNIDine TTS (CATAPRES-TTS) 0.1 mg/24 hr 12 Patch 1 Sig: Apply 1 Patch as directed one time a week. Please review and advise. Last office visit 07/03/2024 Future office visit 03/27/2025 [facility] 01-08-2025 Miscellaneous Notes Patient is requesting from [facility]: Refills as follows: Requested Prescriptions Pending Prescriptions Disp Refills cloNIDine TTS (CATAPRES-TTS) 0.1 mg/24 hr 12 Patch 1 Sig: Apply 1 Patch as directed one time a week. Please review and advise. Last office visit 07/03/2024 Future office visit 03/27/2025 documented in this encounter [facility] 01-08-2025 Telephone encounter Note Please see Pt Mychart message Last visit 07/26/24 Please approve prescription and any additional refills and e-script to designated pharmacy. Thank you, Leatha Levin [facility] 01-05-2025 Telephone encounter Note Refills available [facility] 11-16-2024 Telephone encounter Note Patient returned phone call and stated she will do the test, she stated thank you for the reminder, she appreciates the doctor remembering this. [facility] 11-16-2024 Miscellaneous Notes Patient returned phone call and stated she will do the test, she stated thank you for the reminder, she appreciates the doctor remembering this. Left message for patient to return call. Message can be given upon returned call Recommend follow up complete blood count to keep an eye on blood counts. Order placed. documented in this encounter [facility] 11-15-2024 Telephone encounter Note Left message for patient to return call. Message can be given upon returned call [facility] 11-15-2024 Telephone encounter Note Recommend follow up complete blood count to keep an eye on blood counts. Order placed. [facility] 10-24-2024 Telephone encounter Note Appt made 04/07/25 and pt placed on wait list [facility] 10-24-2024 Miscellaneous Notes Appt made 04/07/25 and [...] calling: self Call patient at: at home [phone] (home) verified as best number per patient Was an appointment scheduled: No Closing statement: Results or non-symptom based questions: Thank you for calling [facility], your call will be returned within the next business day. Johana Kathleen documented in this encounter [facility] 10-24-2024 Telephone encounter Note Zenaida is calling [...] calling: self Call patient at: at home [phone] (home) verified as best number per patient Was an appointment scheduled: No Closing statement: Results or non-symptom based questions: Thank you for calling [facility], your call will be returned within the next business day. Johana Kathleen [facility] 10-09-2024 Telephone encounter [facility] follows: Requested Prescriptions Pending Prescriptions Disp Refills labetalol (TRANDATE) 200 mg tablet 180 tablet 1 Sig: Take 1 tablet by mouth two times a day. Please review and advise. Last office visit 07/03/2024 Future office visit 11/09/2024 [facility] 10-09-2024 Miscellaneous Notes [facility] Refills as follows: Requested Prescriptions Pending Prescriptions Disp Refills labetalol (TRANDATE) 200 mg tablet 180 tablet 1 Sig: Take 1 tablet by mouth two times a day. Please review and advise. Last office visit 07/03/2024 Future office visit 11/09/2024 documented in this encounter [facility] 08-30-2024 Telephone encounter Note Call from patient requesting refill. Requested Prescriptions Pending Prescriptions Disp Refills indapamide (LOZOL) 1.25 mg tablet 90 tablet 3 Sig: Take 1 tablet by mouth once daily. Patient last seen 03/30/24 Dominguez Roach [facility] 08-30-2024 Miscellaneous Notes Call from patient requesting refill. Requested Prescriptions Pending Prescriptions Disp Refills indapamide (LOZOL) 1.25 mg tablet 90 tablet 3 Sig: Take 1 tablet by mouth once daily. Patient last seen 03/30/24 Dominguez Roach documented in this encounter [facility] 08-29-2024 Telephone encounter Note NOV 11/09/24 SOL [...] notify patient. Please review. Tess Natarajan MA [facility] 08-29-2024 Miscellaneous Notes NOV 11/09/24 SOL 07/13/24 [...] Tess Natarajan MA documented in this encounter [facility] 07-26-2024 Instructions Joanie House MD - 07/26/2024 [...] possible retained foreign bodies accounted for. Joanie Huose MD Photo taken: Yes Risks, benefits, alternatives [...] call the office. documented in this encounter [facility] 07-26-2024 History of Presen t illness Narrative [...] Breast cancer (HCC) 09/[address] Nina mroaes ER positive s/p surgery/radiation and AI Collagenous colitis 07/30/2017 On biopsy 2012. Diarrhea hx of colitis Diffuse cystic mastopathy Dyspareunia Essential hypertension H/O complete eye exam 03/13/2011 no retinopathy detected -both eyes - [facility] - return in 1 year - Dr. Ruyb hair thinning sees Dr Choudhary Hormone replacement [...] Abs Lymph 1.00 - 4.00 k/uL 2.24 [place]% % 14.7 Abs [place] <0.87 k/uL 0.83 Eosin% % 3.0 Abs [...] but could not - Recommend seeing Dr. Lee as she is taking new patients [...] Past Histories independently gathered by the clinical ict support technicians and the remaining scribed note accurately describes [...] of service preparing to see the patient, [id number] patient care, completing clinical documentation, obtaining and/or reviewing separately obtained history, performing a medically appropriate examination and counseling and educating the patient/family/caregiver Michelle Choudhary MD Patient notified of bx result, SK 07/28 Michelle Choudhary MD documented in this encounter [facility] 07-26-2024 Note HNO ID: [id number] Author: MICHELLE CHOUDHARY MD Service: ? Author [...] 03/13/2011 no retinopathy detected -both eyes - [facility] - return in 1 year - [...] facility-administered medications for this visit. Latest Ref [facility] 06/24/2024 WBC 3.70 - 11.00 k/uL [...] Abs Lymph 1.00 - 4.00 k/uL 2.24 [place]% % 14.7 Abs [place] <0.87 k/uL 0.83 Eosin% % 3.0 Abs [...] Hair pull: negati (more content not included)... [facility] 07-17-2024 Note HNO ID: [id number] Author: DOMINGUEZ HARKINS MD Service: ? Author [...] with the prescribing physician. Dominguez Harkins MD [facility] 07-17-2024 History of Presen t illness [...] Dominguez Harkins MD documented in this encounter [facility] 07-14-2024 History of Presen t illness Narrative [...] PATIENT PRESENTS WITH AN IMPLANTABLE OR ATTACHED SCOURING TRAIN OPERATOR CHIEF: No RADIOLOGY DEPARTMENT: General X-ray: Exam(s) Completed: Chest X-Ray PERIPHERAL IV DATA: Not applicable SIGNED BY: RT Russell(Renny) July 14, 2024 9:21 AM documented in this encounter [facility] 07-14-2024 Note HNO ID: [id number] Author: RAHUL ADAMS RT(Renny) Service: Radiology Author [...] PATIENT PRESENTS WITH AN IMPLANTABLE OR ATTACHED SCOURING TRAIN OPERATOR CHIEF: No RADIOLOGY DEPARTMENT: General X-ray: Exam(s) Completed: Chest X-Ray PERIPHERAL IV DATA: Not applicable SIGNED BY: RT Russell(Renny) July 14, 2024 9:21 AM [facility] 07-13-2024 Note HNO ID: [id number] Author: ERWIN ROSALES MD Service: ? Author Type: Physician Type: Progress Notes Filed: 07/13/2024 15:01 Note Text: This note was created using Innohubriter. Subjective Zenaida Evans is a 89 year [...] episode occurred on a flat street in [place], and this unexpected breathlessness was accompanied by [...] Despite these challenges, other symptoms such as casino floor supervisor travel did not reveal further clarification on [...] any necessary modifications to her treatment plan. [facility] 07-13-2024 History of Presen t illness Narrative This note was created using PointsHoundter. Subjective Zenaida Evans is a 89 year [...] episode occurred on a flat [address] in [place], and this unexpected breathlessness was accompanied by [...] Despite these challenges, other symptoms such as casino floor supervisor travel did not reveal further clarification on [...] her treatment plan. documented in this encounter [facility] 07-12-2024 Telephone encounter Note Offered next day appointment with Dr. Rosales, patient states that she sees Dr. Bautista at [facility]. Advised her to call his office and I would forward to his office. Reason for Disposition [1] MILD difficulty breathing (e.g., minimal/no SOB at rest, SOB with walking, pulse <100) AND [2] NEW-onset or WORSE than normal Answer Assessment - Initial Assessment Questions 1. RESPIRATORY STATUS: Describe your breathing? (e.g., wheezing, shortness of breath, unable to speak, severe coughing) [place] SOB and chest heaviness for the first [...] travel history, exposures) denies Protocols used: Breathing Hgeyuozdjc-OXSGP-KQ [facility] 07-12-2024 Miscellaneous Notes Offered next day appointment with Dr. Rosales, patient states that she sees Dr. Bautista at [facility]. Advised her to call his office and I would forward to his office. Reason for Disposition [1] MILD difficulty breathing (e.g., minimal/no SOB at rest, SOB with walking, pulse <100) AND [2] NEW-onset or WORSE than normal Answer Assessment - Initial Assessment Questions 1. RESPIRATORY STATUS: Describe your breathing? (e.g., wheezing, shortness of breath, unable to speak, severe coughing) [place] SOB and chest heaviness for the first [...] travel history, exposures) denies Protocols used: Breathing Ivuwhanrxt-QZUPV-SL Vm left to call and speak with a nurse Images from the original note were not included. LM for patient to call back Scheduled patient for appointment tomorrow at 910 with Jose please triage and ask patient if she wants appointment tomorrow Zenaida Zelaya [facility] (supporting Susannah Clemente MD)1 minute ago (2:09 PM) Cristino Clemente: I thought I should report a recent issue which could be heart related. On Wednesday I was attending a conference in [place]. Because it started early I couldn't find an open parking garage near by so I parked at [address] and walked to the conference site at the [employer] on . I found very quickly that I was having a heavy feeling in the chest and difficulty breathing. I had to take frequent breaks to get there. I had never had that reaction before to walking and was surprised as I routinely use the treadmill at the [employer] and do a mile or so at [...] Thanks, Zenaida Evans documented in this encounter [facility] 07-11-2024 Telephone encounter Note Vm left to call and speak with a nurse [facility] 07-11-2024 Telephone encounter Note Images from the original note were not included. LM for patient to call back Scheduled patient for appointment tomorrow at 910 with Jose please triage and ask patient if she wants appointment tomorrow Zenaida [facility] (supporting Susannah Clemente MD)1 minute ago (2:09 PM) Cristino Clemente: I thought I should report a recent issue which could be heart related. On Wednesday I was attending a conference in [place]. Because it started early I couldn't find an open parking garage near by so I parked at [address] and walked to the conference site at the [facility] on [address] I found very quickly that I was having a heavy feeling in the chest and difficulty breathing. I had to take frequent breaks to get there. I had never had that reaction before to walking and was surprised as I routinely use the treadmill at the [employer] and do a mile or so at 3mph with no great effort. The same response occurred on my return to the parking area. I was concerned but felt fine the next day and since. I did book the stress echo for the Jul. I wonder if this could be a reaction to the stress of my daughter's cancer diagnosis. Thanks, Zenaida Evans [facility] 07-11-2024 Telephone encounter Note See nurse triage note [facility] 07-11-2024 Miscellaneous Notes See nurse triage note documented in this encounter [facility] 07-03-2024 Telephone encounter Note Continues adjacent hospital follow-up and 1 day release on November 09 at 11:10 [facility] 07-03-2024 Miscellaneous Notes Continues adjacent hospital follow-up and 1 day release on November 09 at 11:10 Patient wanted me to contact you, nothing available for medicare wellness in 4 months, I offered to see cris Beltran declined, next available was february. Patient wanted me to message you to see if May was okay for her to be seen. documented in this encounter [facility] 07-03-2024 Telephone encounter Note Patient wanted me to contact you, nothing available for medicare wellness in 4 months, I offered to see cris Beltran declined, next available was february. Patient wanted me to message you to see if May was okay for her to be seen. [facility] 07-03-2024 Note HNO ID: [id number] Author: SUSANNAH CLEMENTE MD Service: ? Author Type: Physician Type: Progress Notes Filed: 07/03/2024 11:03 Note Text: Note created with SEC Watch Software: HPI The patient is a 89-year-old [...] 4.00 k/uL 1.67 1.87 1.88 1.62 2.24 [place]% % 10.5 11.3 13.1 11.6 14.7 Abs [place] <0.87 k/uL 0.46 0.50 0.50 0.53 0.83 [...] approximately six mon (more content not included)... [facility] 07-03-2024 History of Presen t illness Narrative Note created with SEC Watch Software: HPI The patient is a 89-year-old [...] 4.00 k/uL 1.67 1.87 1.88 1.62 2.24 [place]% % 10.5 11.3 13.1 11.6 14.7 Abs [place] <0.87 k/uL 0.46 0.50 0.50 0.53 0.83 [...] Susannah Clemente MD documented in this encounter [facility] 06-26-2024 Note HNO ID: [id number] Author: EMILEE CRUMP APRN.NETWORKER Service: ? Author Type: Nurse Practitioner Type: [...] change in therapy is required. Emilee Crump [facility] 06-26-2024 History of Presen t illness [...]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 scheduling line at [phone] and ask for a Hearing Aid Evaluation appointment at your preferred [facility] location. 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 In order to investigate a potential insurance benefit for hearing aids, please plan to schedule your appointment for at least 1 week from the time of your phone call so that your insurance benefit can be verified. If there is no insurance benefit, please be aware there is a $100 [id number] fee due at time of service. Listed [...] strategies to enhance communication ability. * Call [phone] to schedule an appointment to assess your need for hearing aids. Request a HAE appointment. Thank you for trusting and choosing [facility] Audiology with your hearing care needs. [place] not hesitate to reach out with any questions or concerns. Sincerely, RODY Dejesus, [facility] Clinical and Senior Hearing Implant Foot Specialist documented in this encounterTrumbull Memorial Hospital10-09-2023 History of Present illness Narrative* Cristina Lara AUD - 07/26/2023 1:45 PM EDT Head and [place]ck [place] AUDIOLOGIC EVALUATION REPORT Name: Zenaida Evans CCF#: [id number] Date of Service: 07/26/2023 Date of : 1935 Age: [age] year old Referred by: Susannah Clemente MD Referred for: Evaluation of suspected change in hearing, tinnitus, or balance. Referral documented: In an order in [facility] Patient's major complaints: Hearing loss: mostly [...] evaluation of middle ear function. CPT code: 65925 RIGHT EAR: Did not test. LEFT EAR: Did not test. ACOUSTIC REFLEXES Description of procedure: This test is an objective measure of auditory and facial nerve pathways. CPT code: 32256, 49938 RIGHT EAR PROBE EAR: (ipsi right stimulus [...] and boneconduction and speech recognition testing. CPT code:51878 RIGHT EAR: Hearing Sensitivity: Mild sloping to [...] testing. RECOMMENDATIONS * Continue medical follow-up with Ssuannah Clemente MD . * The patient was counseled regarding the need to continue to monitor hearing and have regular hearing assessments. * The patient was counseled regarding effective communication strategies to enhance communication ability. * Call [phone] to schedule an appointment to assess your need for hearing aids. Request a HAE appointment. Rody Dejesus, [facility] Clinical and Senior Hearing Implant Foot Specialist copied to: Susannah Clemente MD [place] Abbrev- iation Definition Degree of hearing sensitivity dB range WNL within normal limits WNL 0 - 20 SNHL sensorineural hearing loss Mild 20-40 CHL conductive hearing loss Moderate 40-55 MHL mixed hearing loss Moderately-Severe 55-70 WRS word recognition score Severe 70-90 ME middle ear Profound 90 + TM tympanic membrane documented in this encounterTrumbull [facility] Hospital09-21-2023 History of Present illness Narrative* Tracy Chisholm, [...] 12:46 PM PAGER/CONTACT #: documented in this encounterTrumbull Memorial Hospital09-18-2023 History of Present illness Narrative* Susannah Clemente [...] sexual function:Not at all denies bladder concerns. [place] anxious, stressed, angry, irritable, lonely, isolated, or had thoughts of hurting themself: Not at all Has little interest or pleasure in doing things: Several days Bothered by feeling down, depressed, or hopeless: Several days States stressful caring for . Is now at [facility], now getting rehab. Needs help with grocery shopping, cooking, housework, bathing, grooming, dressing, eating, sitting or standing, walking, using the toilet, handling finances, taking medications, using the telephone, or driving: Yes Ordering several meals a week from someone. 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 Driving okay. 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 Following safety precautions in the [...] in the medical record. Dermatology new in [place] for Basal Cell Cardiology Gastroenterology Alicia Hylton [...] (1.69m) Wt 133 lb 4 oz (60.4kg) EuI197% BMI 21.19 kg/(m^2). Hemoglobin (g/dL) Date Value [...] Abs Lymph 1.00 - 4.00 k/uL 1.81 [place]% % 9.6 Abs [place] <0.87 k/uL 0.41 Eosin% % 3.3 Abs [...] exercise - DXA-AXIAL SKELETON - [facility] - HEARING TEST/AUDIOGRAM - [place] HEPATOBILIARY [...] RX Susannah Clemente MD documented in this encounterTrumbull Memorial Hospital06-22-2023 History of Present illness Narrative* Kelsi Souza, [...] visits planned) Planned Treatment Interventions: Therapeutic exercise (71170), Neuromuscular re- education (18462), Manual therapy (47647), Therapeutic activities (72624), Self- alf management (61948), Gait Training (99157), Patient/Family/Caregiver Education PLAN FOR NEXT VISIT: DC [...] States/Identifies, Return Demonstration TREATMENT: PT Treatment Interventions: Self-Fdc Management Evaluation Self-Fdc Management: 1: provided pt. education with images: [...] 30 Kelsi Souza PT documented in this encounterTrumbull Memorial Hospital06-16-2023 History of Present illness Narrative* Lyndsay Krishnamurthy - 04/02/2023 12:26 PM EDT EVENT MONITOR DISPOSABLE PATCH INSTRUCTIONS Patient Name: Zenaida [facility] Number: [id number] Skin prepped and cleansed with alcohol Patch secured to prepped area Monitor Activated Serial #: [id number] Patient Instructed: Prescribed order timeframe Bathing guidelines Usage of event button and diary documentation Return of monitor at the end of prescribed order Call with problems [phone] or [phone] ext. [phone] Patient expresses a good understanding of instructions Lyndsay Krishnamurthy documented in this encounterTrumbull Memorial Hospital06-15-2023 History of Present illness Narrative* Kelsi [...] PERIPHERAL IV DATA: Not applicable SIGNED BY: Kelis Ortez RDMS RVT April 01, 2023 10:12 AM documented in this encounterTrumbull Memorial Hospital06-06-2023 History of Present illness Narrative* Susannah Clemente [...] improve. Susannah Clemente MD documented in this encounterTrumbull Memorial Hospital05-22-2023 Miscellaneous Notes* Telephone Encounter - Sally Ha [...] yes, no; LMP) N/a Protocols used: Back Uvot-MOTPA-NS documented in this encounterTrumbull Memorial Hospital05-09-2023 Miscellaneous Notes* Telephone Encounter - Tara Orona MA - 02/23/2023 10:23 AM EDT Gave message to patient, expressed understanding Mailed to patient * Telephone Encounter - Susannah Clemente MD - 02/23/2023 10:05 AM EDT Order printed in my outbox. documented in this encounterTrumbull Memorial Hospital04-15-2023 History of Present illness Narrative* Kelsi Zavala APRN.[facility] - 01/30/2023 9:53 AM EDT This note was created using [employer]. Subjective Zenaida Evans is a 87 year [...] history is provided by the patient. No food selector was used. Sore Throat This is a [...] 03/13/2011 no retinopathy detected -both eyes - [facility] - return in 1 year - Dr. [...] week Kelsi Zavala APRN.URMILA documented in this encounterTrumbull Memorial Hospital03-22-2023 Miscellaneous Notes* Letter - Mammography Coordinator - 01/06/2023 4:13 PM EDT January 07, 2023 PID: [id number] Zenaida Evans [address] [place] [address] Dear Ms. Evans, We are pleased to [...] report will be kept on file at [facility] as part of your permanent medical record and are available for your continuing care. Thank you for allowing us to help in meeting your health care needs. Sincerely, Dr. 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 She underwent a right NL PM with [...] Negative michelle Breast MRI: Yes, Date in [facility]: 08/15/12; results - Negative Colonoscopy: Yes, Date in [facility]: 09/08/13; results - Diverticulosis-repeat in 10 [...] 03/13/2011 no retinopathy detected -both eyes - [facility] - return in 1 year - Dr. [...] which included preparing to see the patient, [id number] patient care, completing clinical documentation, obtaining and/or reviewing separately obtained history, performing a medically appropriate examination, counseling and educating the pat ient/family/caregiver, ordering medications, tests, or procedures, communicating results to the patient/family/caregiver, and care coordination (not separately reported). Alicia Hylton APRN.URMILA Medical Breast Specialist Women's Health Nurse Practitioner CC: Susannah Clemente MD [facility] [place] [address] documented in this encounterTrumbull Memorial Hospital02-07-2023 History of Present illness Narrative* Erwin Maria [...] 03/13/2011 no retinopathy detected -both eyes - [facility] - return in 1 year - [...] 10 mL INTRAVENOUS DIRECTED PRN Le Orourke APRN.NETWORKER ALLERGIES Allergen Reactions Scopolamine Mental Status Change [...] trigger finger Informed Consent Consent Obtained: Verbal [place] Protocol A moment to CARE was completed. [...] applicable Erwin Maria MD documented in this encounterTrumbull Memorial Hospital02-03-2023 Instructions* Patient Instructions* Le Orourke APRN.CNP - 11/20/2022 11:27 AM EST -No medication changes today. -Please have blood work drawn on 01/12/2023 and I will follow-up with you when I get the results. -Follow-up with Dr. Bautista on 04/02/2023 with echo (if possible). documented in this encounterTrumbull Memorial Hospital02-03-2023 History of Present illness Narrative* Le Orourke APRN.CNP - 11/20/2022 10:26 AM EST Images from the original note were not included. [facility] [place] [facility] SECTION OF HEART FAILURE and CARDIAC TRANSPLANT MEDICINE OUTPATIENT VISIT DATE 11/20/2022 PRIMARY CARE PHYSICIAN: Susannah Clemente [facility] [place] [address] PRIMARY HEART FAILURE ENVIRONMENTAL SERVICES TECH: Dr. Bautista CHIEF COMPLAINT: Follow-up HISTORY OF [...] 03/13/2011 no retinopathy detected -both eyes - [facility] - return in 1 year - Dr. [...] 0.1 mg patch weekly Device therapy: no, ho-chunk QRS: 80 ms Sleep apnea: no Anemia: [...] as above. Le Orourke MSN, ACNP-BC, CHFN, [facility] Section Of Heart Failure and Cardiac Transplant Medicine Heart [facility] [place] [facility] Desk [place] [address] documented in this encounterTrumbull Memorial Hospital01-12-2023 Miscellaneous Notes* Telephone Encounter - Keyona [...] 10/22/2022 7:28 PM EST documented in this encounterTrumbull Memorial Hospital12-22-2022 Miscellaneous Notes* Telephone Encounter - Crystal [...] with primary care provider. documented in this encounterTrumbull Memorial Hospital12-22-2022 History of Present illness Narrative* Kelsi [...] 08, 2022 11:09 AM documented in this encounterTrumbull Memorial Hospital12-19-2022 History of Present illness Narrative* Ramandeep [...] 03/13/2011 no retinopathy detected -both eyes - [facility] - return in 1 year - [...] dip. Ramandeep Nieto PA-C documented in this encounterTrumbull Memorial Hospital12-15-2022 History of Present illness Narrative* Susannah Clemente [...] Abs Lymph 1.00 - 4.00 k/uL 2.10 [place]% % 10.4 Abs [place] <0.87 k/uL 0.50 Eosin% % 3.3 Abs [...] 12/30/2022). Susannah Clemente MD documented in this encounterTrumbull Memorial Hospital12-15-2022 Evaluation note* Diagnosis Stage 3 chronic [...] kidney disease (HCC) documented in this encounter [facility]11-28[facility] History of Present illness Narrative* Rosendo Rodgers MD - 09/14/2022 2:43 PM EST Phone call. Reviewed labs, hemoglobin normal. Plan recheck in spring. 10 minute phone call. Rosendo Rodgers MD September 14, 2022 documented in this encounterTrumbull Memorial Hospital11-25-2022 Miscellaneous Notes* Telephone Encounter - Letitia [...] patient once the orders are in at [phone]. Thank you documented in this encounterTrumbull Memorial Hospital11-16-2022 Instructions* Patient Instructions* Paul Bautista MD - 09/02/2022 1:56 PM EST Thank you for visiting the [facility] at the [facility]. Here are your instructions. 1. Only take your furosemide as needed for weight gain of 3lbs in a day or 5lbs in a week. 2. Start indapamide 1.25mg per day. 3. Obtain labs in 1 week. 4. Return in 3 months with CLAIMS ATTORNEY and 6 months with me. Please call with questions or concerns. Office: [phone] Paul Bautista MD documented in this encounterTrumbull Memorial Hospital11-16-2022 History of Present illness Narrative* Paul Bautista MD - 09/02/2022 1:15 PM EST Images from the original note were not included. Heart [facility] [place] [facility] SECTION OF HEART FAILURE and CARDIAC TRANSPLANT MEDICINE OUTPATIENT VISIT DATE September 02, 2022 OUTPATIENT VISIT TYPE Established Patient PRIMARY CARE PHYSICIAN: Susannah Clemente [address] [place] [address] CHIEF COMPLAINT: Feeling well NURSING INTAKE (Patient [...] in 04/2020 when she presented to her sewing machine operator floorperson with peripheral edemarequiring furosemide. Her ntprobnp had [...] 03/13/2011 no retinopathy detected -both eyes - [facility] - return in 1 year - [...] non-medical management as above. Paul Bautista MD [facility] Section Of Heart Failure and Cardiac Transplant Medicine Heart [facility]ascular [place] [facility] Desk J3-[address] [place] [address] documented in this encounterTrumbull Memorial Hospital10-20-2022 Miscellaneous Notes* Telephone Encounter - Megan [...] time. * Telephone Encounter - Nadja Mosley [facility] - 08/06/2022 12:02 PM EDT Pt calling for a refill on her Ipratropium .06% spray. I did not see it on med list. Thank you! documented in this encounterTrumbull Memorial Hospital10-05-2022 Miscellaneous Notes* Telephone Encounter - Michelle Choudhary MD - 07/22/2022 5:36 PM EDT Zenaida Evans is a 87 year old female Refilled oral minoxidil 1.25 a day Michelle Choudhary MD documented in this encounterTrumbull Memorial Hospital09-29-2022 History of Present illness Narrative* Susannah Clemente MD - 07/16/2022 11:47 AM EDT Patient presents with: Follow Up States was at [facility] and looked into the water. States did look into it earlier. The govt had a bill. Some of the chemicals are: Benzene (discussed possible effect on bone marrow AML, CLL) Tetrachloroethylene (discussed acute toxicity, neuro, pulmonary and GI) Trichloroethylene Vinyl Chloride (liver cancer). Discussed and will check in with them. States blood pressure at home has been very good. Did see Curtain Cleaner who ran a 24 hour blood pressure. [...] ICD9: V03.89, ICD10: Z23 (primary diagnosis) - [facility] COVID-19 BIVALENT BOOSTER VACCINE, AGE 12+ YR [...] 10/15/2022). Susannah Clemente MD documented in this encounterTrumbull [facility]08-[facility]22 History of Present illness Narrative* Dennys [...] by mouth two times a week. Lmefol Xt-iukmsd-ftO50-algal (CEREFOLIN NAC, ALGAL OIL,) 6 mg-600 mg- [...] Pressure in Adults: A Report of the [place] [employer] Heart Association Task Force on Clinical Practice Guidelines. Hypertension. 2018 Mar;71(6):s19-o591. Epub 2016Aug 30. The ABPM should be [...] all individual readings will be scanned into [employer], which can be reviewed under scanned documents. Dennys Guzman MD documented in this encounterTrumbull [facility] Hospital08-01-2022 Instructions* Patient Instructions* Paul Bautista MD - 05/18/2022 10:27 AM EDT Thank you for visiting the [facility]. Here are your instructions. I'm concerned [...] Please call with questions or concerns. Office: [phone] Paul Bautista MD documented in this encounterTrumbull Memorial Hospital08-01-2022 History of Present illness Narrative* Paul Bautista MD - 05/18/2022 9:30 AM EDT Images from the original note were not included. [facility] [place] [facility] SECTION OF HEART FAILURE and CARDIAC TRANSPLANT MEDICINE OUTPATIENT VISIT DATE May 18, 2022 OUTPATIENT VISIT TYPE Consultation PRIMARY CARE PHYSICIAN: Susannah Clemente [address] [place] [address] CHIEF COMPLAINT: Shortness of breath NURSING INTAKE [...] in 04/2020 when she presented to her sewing machine operator floorperson with peripheral edemarequiring furosemide. Her ntprobnp had [...] 03/13/2011 no retinopathy detected -both eyes - [facility] - return in 1 year - Dr. [...] by mouth two times a week. Lmefol Aa-mutmww-ldD02-algal (CEREFOLIN NAC, ALGAL OIL,) 6 mg-600 mg- [...] 2019;22(1):148-158. doi: 10.1002/ejhf.1621. Epub 2018Aug 07. PMID: [id number]. PLAN AND RECOMMENDATIONS: 86 yo male with [...] LVH or low voltage and her echocardiogram [id number] does not show any overt cardiac remodeling. She has NYHA class IIIa symptoms when dealing withinclines. Given her NTprobnp, will start SGLT2i. We had a discussion about urogenital infections. 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 We will also assess ambulatory blood pressure [...] non-medical management as above. Paul Bautista MD [facility] Section Of Heart Failure and Cardiac Transplant Medicine [facility] [place] [facility] Desk [id number] [place] [address] documented in this encounterTrumbull Memorial Hospital07-28-2022 Instructions* Patient Instructions* Jodi Hatfield RN [...] at patients earliest convienence documented in this encounterTrumbull Memorial Hospital07-28-2022 History of Present illness Narrative* Michelle Choudhary [...] 03/13/2011 no retinopathy detected -both eyes - [facility] - return in 1 year - Dr. [...] by mouth two times a week. Lmefol Ho-hszwqv-fmE87-algal (CEREFOLIN NAC, ALGAL OIL,) 6 mg-600 mg- [...] Abs Lymph 1.00 - 4.00 k/uL 1.40 [place]% % 11.2 Abs [place] <0.87 k/uL 0.40 [place]% % 2.2 Abs [...] of service preparing to see the patient, [id number] patient care, completing clinical documentation, obtaining and/or reviewing separately obtained history, performing a medically appropriate examination and counseling and educating the patient/family/women's health care nurse practitioner Michelle Choudhary MD documented in this encounterTrumbull Memorial Hospital07-01-2022 History of Present illness Narrative* Rosendo [...] 03/13/2011 no retinopathy detected -both eyes - [facility] - return in 1 year - Dr. [...] by mouth two times a week. Lmefol Bp-izdkrr-erI20-algal (CEREFOLIN NAC, ALGAL OIL,) 6 mg-600 mg- [...] which included preparing to see the patient, [id number] patient care, completing clinical documentation, obtaining and/or reviewing separately obtained history, counseling and educating the patient/family/caregiver, independently interpretin g results (not separately reported) and communicating results to the patient/family/caregiver. Electronically Signed: Rosendo Rodgers MD April 17, 2022 11:04 AM documented in this encounterTrumbull Memorial Hospital06-28-2022 History of Present illness Narrative* Susannah Clemente MD - 04/14/2022 10:09 AM EDT Patient presents with: Follow Up Had appointment with hematology, changed the date. At home highest blood pressure is low 130's. Forgot meds this morning. Ever since diagnosed with congestive heart failure, had some concerns. States the Curtain Cleaner didn't have any significant. Would like to [...] 4.00 k/uL 2.30 1.53 1.79 1.92 1.77 [place]% % 10.9 10.5 11.8 11.5 12.1 Abs [place] <0.87 k/uL 0.54 0.42 0.70 0.48 0.51 [...] slot.. Susannah Clemente MD documented in this encounterTrumbull Memorial Hospital06-07-2022 History of Present illness Narrative* Erwin Maria [...] 24, 2022 11:19 AM documented in this encounterTrumbull Memorial Hospital05-05-2022 Miscellaneous Notes* Telephone Encounter - Sally [...] Please assist in canceling. documented in this encounterTrumbull Memorial Hospital05-03-2022 History of Present illness Narrative* Leigh [...] 17, 2022 11:05 AM documented in this encounterTrumbull Memorial Hospital04-26-2022 History of Present illness Narrative* Kelsi [...] WITH LEVEL OF FUNCTION: Hand Strength L Rice Dryer Mechanic Position 2 (lbs): 36 lbs UE AROM [...] facilitated with verbal, visual and tactile cuing. Self-Fdc Management: 1: Conitnue with comfort cool for [...] 43 ANSON Diaz, OTD documented in this encounterTrumbull Memorial Hospital04-19-2022 NoteHNO ID: [id number] Author: DEBORAH Saleem Service: ? Author Type: [...] as thumb continues to progress. Able unload product support sales representative w/ surgical hand. Pain: Pain Pain Level: [...] Therapeutic Exercise Treatment Minutes: 40 Laverne Helms [facility] [id number] History of Present illness Narrative* DEBORAH Saleem [...] as thumb continues to progress. Able unload product support sales representative w/ surgical hand. Pain: Pain Pain Level: [...] Minutes: 40 DEBORAH Saleem documented in this encounterTrumbull Memorial Hospital04-12-2022 NoteHNO ID: [id number] Author: DEBORAH Saleem Service: ? Author Type: Occupational Therapist Type: Progress Notes Filed: 01/27/2022 12:27 PM Note Text: The patient did not show up for this appointment.[id number] History of Present illness Narrative* DEBORAH Saleem - 01/27/2022 12:26 PM EDT The patient did not show up for this appointment. documented in this encounterTrumbull Memorial Hospital04-05-2022 Miscellaneous Notes* Addendum Note - DEBORAH Diaz - 01/20/2022 10:12 AM EDT Addended by: KELSI ROSA on: 01/20/2022 10:12 AM Modules accepted: Orders documented in this encounterTrumbull Memorial Hospital04-05-2022 History of Present illness Narrative* DEBORAH Diaz [...] cool for day use. Was seen by orthodontist in therapy, and doing well from OT [...] gardening tasks New goal: Patient will increase fly fishing guide strength to 30# or greater with left hand in order to complete meal preparation and moderate daily tasks. Planned Interventions, Frequency, and Duration: 1x/week, 4 weeks Total Number of Visits Planned: 4 Planned Treatment Interventions: Custom orthosis fabrication;Prefabricated orthosis fitting;Self-alf management ([id number]);Therapeutic exercise ([id number]) PLAN FOR NEXT VISIT: heat, motion, progress with strength (possible putty) SUBJECTIVE: 8 wks s/p arthroplasty and suspensionplasty of L thumb. Patient has been wearing OTS thumb spica on surgical thumb for day/night use. Reports as time goes on she is able to complete lightdaily tasks as thumb continues to progress. Able unload product support sales representative w/ surgical hand. Functional Limitations: lifting;heavy exertion;cleaning;dressing;cooking;carrying;pushing;pulling;gripping;weight [...] Location: Left thumb/wrist Edema Description: Mild Strength: Rice Dryer Mechanic Position 2;Pinch Meter Sensation: Denies tingling or numbness Hand Strength R Rice Dryer Mechanic Position 2 (lbs): 53 lbs L Rice Dryer Mechanic Position 2 (lbs): 20 lbs R Lateral [...] in squeezes, pinches, and finger add w/ [place] resistant eggs. Pt returned demo -written handout [...] 8-10 reps, hold for 10 sec. 2: [place] Egg: Squeezes, pinches (each finger), and squeezes [...] BEN Diaz/Cathryn, OTD documented in this encounterCleveland [id number] History of Present illness Narrative* Leigh Abreu [...] 20, 2022 10:15 AM documented in this encounterTrumbull Memorial Hospital03-29-2022 NoteHNO ID: [id number] Author: Laverne Helms OT/Cathryn Service: ? Author [...] radial and palmar abduction 4: Soft sponge fly fishing guide manipulate and picked edge sewing machine operator Skilled Intervention: Patient was educated in proper exercise technique and purpose for exercises. Skilled judgment was provided in selection of appropriate interventions. Billing Therapeutic Exercise Treatment Minutes: 40 Laverne Helms OT/[facility] [id number] NoteHNO ID: [id number] Author: Laverne Helms OT/Cathryn Service: ? Author [...] Therapeutic Exercise Treatment Minutes: 45 Laverne Scooter, OT/[facility] [id number] History of Past illness Narrative * Problem [...] 1.1-1.2) CK/CKMB negative. Patient transferred to [facility] for further evaluation. OSH Echo 10/2019 EF [...] of this encounter (statuses as of 01/30/2023) [facility] of Past illness Narrative* Problem [...] 1.1-1.2) CK/CKMB negative. Patient transferred to [facility] for further evaluation. OSH Echo 10/2019 EF [...] of this encounter (statuses as of 02/23/2023) [facility] History of Past illness Narrative* Problem [...] creatine- 1.1-1.2) CK/CKMB negative. [facility]. OSH Echo 10/2019 [...] of this encounter (statuses as of 03/24/2023) [facility] of Past illness Narrative* Problem [...] creatine- 1.1-1.2) CK/CKMB negative. [facility] further [facility]. OSH Echo 10/2019 [...] of this encounter (statuses as of 04/02/2023) [facility] of Past illness Narrative* Problem [...] creatine- 1.1-1.2) CK/CKMB negative. Patient transferred to [facility] for further evaluation. OSH Echo 10/2019 [...] of this encounter (statuses as of 04/08/2023) [facility] of Past illness Narrative* Problem [...] 1.1-1.2) CK/CKMB negative. Patient transferred to [facility] for further evaluation. OSH Echo 10/2019 EF [...] of this encounter (statuses as of 05/04/2023) [facility] of Past illness Narrative* Problem [...] 1.1-1.2) CK/CKMB negative. Patient transferred to [facility] for further evaluation. OSH Echo 10/2019 EF [...] of this encounter (statuses as of 07/06/2023) [facility] of Past illness Narrative* Problem [...] creatine- 1.1-1.2) CK/CKMB negative. Patient transferred to [facility] for further evaluation. OSH Echo 10/2019 [...] of this encounter (statuses as of 07/16/2023) [facility] of Past illness Narrative* Problem [...] creatine- 1.1-1.2) CK/CKMB negative. Patient transferred to [facility] for further evaluation. OSH Echo 10/2019 [...] of this encounter (statuses as of 08/05/2023) [facility] of Past illness Narrative* Problem [...] creatine- 1.1-1.2) CK/CKMB negative. Patient transferred to [facility] for further evaluation. OSH Echo 10/2019 [...] of this encounter (statuses as of 08/06/2023) [facility] of Past illness Narrative* Problem [...] creatine- 1.1-1.2) CK/CKMB negative. Patient transferred to [facility] for further evaluation. OSH Echo 10/2019 [...] of this encounter (statuses as of 08/17/2023) [facility] illness Narrative* Problem [...] 1.1-1.2) CK/CKMB negative. Patient transferred to [facility] for further evaluation. OSH Echo 10/2019 EF [...] of this encounter (statuses as of 08/18/2023) [facility] of Past illness Narrative* Problem [...] creatine- 1.1-1.2) CK/CKMB negative. Patient transferred to [facility] for further evaluation. OSH Echo 10/2019 [...] of this encounter (statuses as of 08/20/2023) [facility] illness Narrative* Problem [...] creatine- 1.1-1.2) CK/CKMB negative. Patient transferred to [facility] for further evaluation. OSH Echo 10/2019 [...] of this encounter (statuses as of 08/20/2023) [facility] illness Narrative* Problem [...] of this encounter (statuses as of 08/20/2023) [facility] Past illness Narrative* Problem [...] creatine- 1.1-1.2) CK/CKMB negative. Patient transferred to [facility] for further evaluation. OSH Echo 10/2019 [...] of this encounter (statuses as of 08/20/2023) [facility] Past illness Narrative* Problem [...] creatine- 1.1-1.2) CK/CKMB negative. Patient transferred to [facility] for further evaluation. OSH Echo 10/2019 [...] of this encounter (statuses as of 08/20/2023) [facility] of Past illness Narrative* Problem [...] creatine- 1.1-1.2) CK/CKMB negative. Patient transferred to [facility] for further evaluation. OSH Echo 10/2019 [...] of this encounter (statuses as of 08/22/2023) [facility] Past illness Narrative* Problem [...] creatine- 1.1-1.2) CK/CKMB negative. Patient transferred to [facility] for further evaluation. OSH Echo 10/2019 EF 65%, stage 1 diastolic dysfunction, mild TR Plan cycle enzymes CK 150 Trop T 0.053 BP management treatment of BRIGHT improved off cozaar and maxzide creat 1.35 repeat echo completed and pending Stress test scheduled 11/24/2019 at 7:45 No scar or ischemia Hyperkalemia 11/22/2019 12/15/2019 Overview: see plan CKD BIRGHT (acute kidney injury) 11/22/2019 Overview: see plan [...] of this encounter (statuses as of 08/31/2023) [facility] Past illness Narrative* Problem [...] creatine- 1.1-1.2) CK/CKMB negative. Patient transferred to [facility] for further evaluation. OSH Echo 10/2019 [...] of this encounter (statuses as of 09/02/2023) [facility] Narrative* Problem [...] 1.1-1.2) CK/CKMB negative. Patient transferred to [facility] for further evaluation. OSH Echo 10/2019 EF [...] of this encounter (statuses as of 09/08/2023) [facility] illness Narrative* Problem [...] of this encounter (statuses as of 09/10/2023) [facility] illness Narrative* Problem [...] creatine- 1.1-1.2) CK/CKMB negative. Patient transferred to [facility] for further evaluation. OSH Echo 10/2019 [...] of this encounter (statuses as of 09/21/2023) [facility] Past illness Narrative* Problem [...] creatine- 1.1-1.2) CK/CKMB negative. Patient transferred to [facility] for further evaluation. OSH Echo 10/2019 [...] of this encounter (statuses as of 10/01/2023) [facility] Narrative* Problem [...] 1.1-1.2) CK/CKMB negative. Patient transferred to [facility] for further evaluation. OSH Echo 10/2019 EF [...] of this encounter (statuses as of 10/08/2023) [facility] illness Narrative* Problem [...] creatine- 1.1-1.2) CK/CKMB negative. Patient transferred to [facility] for further evaluation. OSH Echo 10/2019 [...] of this encounter (statuses as of 12/20/2023) [facility] Narrative* Problem [...] creatine- 1.1-1.2) CK/CKMB negative. Patient transferred to [facility] for further evaluation. OSH Echo 10/2019 [...] of this encounter (statuses as of 12/31/2023) [facility] Narrative* Problem [...] creatine- 1.1-1.2) CK/CKMB negative. Patient transferred to [facility] for further evaluation. OSH Echo 10/2019 [...] of this encounter (statuses as of 12/31/2023) [facility] Narrative* Problem [...] creatine- 1.1-1.2) CK/CKMB negative. Patient transferred to [facility] for further evaluation. OSH Echo 10/2019 [...] of this encounter (statuses as of 01/05/2024) [facility] Narrative* Problem [...] creatine- 1.1-1.2) CK/CKMB negative. Patient transferred to [facility] for further evaluation. OSH Echo 10/2019 [...] of this encounter (statuses as of 01/10/2024) [facility] Narrative* Problem [...] creatine- 1.1-1.2) CK/CKMB negative. Patient transferred to [facility] for further evaluation. OSH Echo 10/2019 [...] of this encounter (statuses as of 01/12/2024) [facility] Narrative* Problem [...] creatine- 1.1-1.2) CK/CKMB negative. Patient transferred to [facility] for further evaluation. OSH Echo 10/2019 [...] of this encounter (statuses as of 01/18/2024) [facility] Narrative* Problem [...] creatine- 1.1-1.2) CK/CKMB negative. Patient transferred to [facility] for further evaluation. OSH Echo 10/2019 [...] of this encounter (statuses as of 01/29/2024) [facility] of Present illness Narrative* KasShavon snyder [...] 18, 2021 11:51 AM documented in this encounterTrumbull [facility] Hospital03-09-2021 History of Present illness Narrative* Rahul Adams [...] 24, 2020 1:12 PM documented in this encounterTrumbull [facility] Hospital10-13-2020 History of Present illness Narrative* July Walls [...] 30, 2020 12:14 PM documented in this encounterTrumbull [facility] Hospital03-06-2020 History of Past illness Narrative* Problem [...] 1.1-1.2) CK/CKMB negative. Patient transferred to [facility] for further evaluation. OSH Echo 10/2019 EF [...] of this encounter (statuses as of 01/20/2022) [facility] of [facility] illness Narrative* Problem [...] creatine- 1.1-1.2) CK/CKMB negative. Patient transferred to [facility] for further evaluation. OSH Echo 10/2019 [...] of this encounter (statuses as of 01/20/2022) [facility] of [facility] illness Narrative* Problem [...] creatine- 1.1-1.2) CK/CKMB negative. Patient transferred to [facility] for further evaluation. OSH Echo 10/2019 [...] of this encounter (statuses as of 01/27/2022) [facility] Narrative* Problem [...] creatine- 1.1-1.2) CK/CKMB negative. Patient transferred to [facility] for further evaluation. OSH Echo 10/2019 [...] of this encounter (statuses as of 02/04/2022) [facility] Narrative* Problem [...] creatine- 1.1-1.2) CK/CKMB negative. Patient transferred to [facility] for further evaluation. OSH Echo 10/2019 [...] of this encounter (statuses as of 02/10/2022) [facility] illness Narrative* Problem [...] creatine- 1.1-1.2) CK/CKMB negative. Patient transferred to [facility] for further evaluation. OSH Echo 10/2019 [...] of this encounter (statuses as of 02/17/2022) [facility] Narrative* Problem [...] creatine- 1.1-1.2) CK/CKMB negative. Patient transferred to [facility] for further evaluation. OSH Echo 10/2019 [...] of this encounter (statuses as of 02/19/2022) [facility] Narrative* Problem [...] of this encounter (statuses as of 03/24/2022) [facility] Narrative* Problem [...] creatine- 1.1-1.2) CK/CKMB negative. Patient transferred to [facility] for further evaluation. OSH Echo 10/2019 [...] of this encounter (statuses as of 04/14/2022) [facility] Narrative* Problem [...] creatine- 1.1-1.2) CK/CKMB negative. Patient transferred to [facility] for further evaluation. OSH Echo 10/2019 [...] of this encounter (statuses as of 04/17/2022) [facility] Narrative* Problem Noted Date Resolved Date Hypertensive emergency 12/22/2019 0 Chest pain 11/22/2019 09/19/2020 Overview: History of HTN and history of SVT with normal cath in the past, Recently admitted to [facility] in October with HTN urgency and neurological evaluation of slurred speech, ASLTER and MS changes. CT/MRI brain showed small [...] creatine- 1.1-1.2) CK/CKMB negative. Patient transferred [facility] for further evaluation. OSH Echo 10/2019 [...] of this encounter (statuses as of 05/14/2022) [facility] Narrative* Problem [...] creatine- 1.1-1.2) CK/CKMB negative. Patient transferred to [facility] for further evaluation. OSH Echo 10/2019 [...] of this encounter (statuses as of 05/18/2022) [facility] Narrative* Problem [...] of this encounter (statuses as of 2022) [facility] Narrative* Problem [...] creatine- 1.1-1.2) CK/CKMB negative. Patient transferred to [facility] for further evaluation. OSH Echo 10/2019 [...] of this encounter (statuses as of 06/01/2022) [facility] Narrative* Problem [...] creatine- 1.1-1.2) CK/CKMB negative. Patient transferred to [facility] for further evaluation. OSH Echo 10/2019 [...] of this encounter (statuses as of 07/16/2022) [facility]2020 History of Past illness Narrative* Problem [...] creatine- 1.1-1.2) CK/CKMB negative. Patient transferred to [facility] for further evaluation. OSH Echo 10/2019 [...] of this encounter (statuses as of 07/22/2022) [facility] History of Past illness Narrative* Problem [...] creatine- 1.1-1.2) CK/CKMB negative. Patient transferred to [facility] for further evaluation. OSH Echo 10/2019 [...] of this encounter (statuses as of 08/06/2022) [facility] History of Past illness Narrative* Problem [...] creatine- 1.1-1.2) CK/CKMB negative. Patient transferred to [facility] for further evaluation. OSH Echo 10/2019 [...] of this encounter (statuses as of 08/08/2022) [facility] History of Past illness Narrative* Problem [...] creatine- 1.1-1.2) CK/CKMB negative. Patient transferred to [facility] for further evaluation. OSH Echo 10/2019 [...] of this encounter (statuses as of 09/02/2022) [facility] History of Past illness Narrative* Problem [...] 1.1-1.2) CK/CKMB negative. [facility] transferred [facility]. OSH Echo 10/2019 EF [...] of this encounter (statuses as of 09/11/2022) [facility] History of Past illness Narrative* Problem [...] 1.1-1.2) CK/CKMB negative. Patient transferred to [facility] further evaluation. OSH Echo 10/2019 EF [...] of this encounter (statuses as of 09/14/2022) [facility] History of Past illness Narrative* Problem [...] creatine- 1.1-1.2) CK/CKMB negative. Patient transferred to [facility] for further evaluation. OSH Echo 10/2019 [...] of this encounter (statuses as of 10/01/2022) [facility] History of Past illness Narrative* Problem [...] creatine- 1.1-1.2) CK/CKMB negative. Patient transferred to [facility] for further evaluation. OSH Echo 10/2019 [...] of this encounter (statuses as of 10/01/2022) [facility] History of Past illness Narrative* Problem [...] creatine- 1.1-1.2) CK/CKMB negative. Patient transferred to [facility] for further evaluation. OSH Echo 10/2019 [...] of this encounter (statuses as of 10/06/2022) [facility] History of Past illness Narrative* Problem [...] creatine- 1.1-1.2) CK/CKMB negative. Patient transferred to [facility] for further evaluation. OSH Echo 10/2019 [...] of this encounter (statuses as of 10/11/2022) [facility] History of Past illness Narrative* Problem [...] creatine- 1.1-1.2) CK/CKMB negative. Patient transferred to [facility] for further evaluation. OSH Echo 10/2019 [...] of this encounter (statuses as of 10/29/2022) [facility] History of Past illness Narrative* Problem [...] creatine- 1.1-1.2) CK/CKMB negative. Patient transferred to [facility] for further evaluation. OSH Echo 10/2019 [...] of this encounter (statuses as of 11/20/2022) [facility] History of Past illness Narrative* Problem [...] creatine- 1.1-1.2) CK/CKMB negative. Patient transferred to [facility] for further evaluation. OSH Echo 10/2019 [...] of this encounter (statuses as of 11/24/2022) [facility] History of Past illness Narrative* Problem [...] creatine- 1.1-1.2) CK/CKMB negative. Patient transferred to [facility] for further evaluation. OSH Echo 10/2019 [...] of this encounter (statuses as of 01/06/2023) [facility] History of Past illness Narrative* Problem [...] 1.1-1.2) CK/CKMB negative. Patient transferred to [facility] for further evaluation. OSH Echo 10/2019 EF [...] of this encounter (statuses as of 01/08/2023) [facility] Thumb pain, left- Primary Primary osteoarthritis of first carpometacarpal joint of left hand Primary localized osteoarthrosis, hand [facility] Diagnosis Primary osteoarthritis of first carpometacarpal joint of left hand- Primary Primary localized osteoarthrosis, hand [facility] Diagnosis Thumb pain, left- Primary NO SHOW [facility] Diagnosis Thumb pain, left- Primary Primary osteoarthritis of first carpometacarpal joint of left hand Primary localized osteoarthrosis, hand [facility] Diagnosis Thumb pain, left- Primary Primary osteoarthritis of first carpometacarpal joint of left hand Primary localized osteoarthrosis, hand [facility] [place] [facility] Diagnosis Primary osteoarthritis of first carpometacarpal joint of left hand- Primary Primary localized osteoarthrosis, hand [facility] [place] [facility]* Diagnosis Primary osteoarthritis of first carpometacarpal joint of left hand- Primary Primary localized osteoarthrosis, hand [facility] [place] [facility]* Diagnosis Anemia, unspecified type- Primary 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 disease, or chronic kidney disease (HCC) Unspecified hypertensive heart and kidney disease with heart failure and with chronic kidney disease stage I through stage IV, or unspecified Hypothyroidism, unspecified type [facility] Diagnosis Anemia due to stage 3b chronic kidney disease (HCC)- Primary Anemia, unspecified type documented in this encounter [facility] note* Diagnosis Telogen effluvium- Primary Seborrheic dermatitis Seborrheic dermatitis, unspecified Encounter for medication monitoring Encounter for therapeutic drug monitoring Verruca vulgaris Viral warts, unspecified Hypothyroidism, unspecified type documented in this encounter [facility] note* Diagnosis Chronic heart failure with preserved [...] Unspecified essential hypertension [facility] [place] [facility]* Diagnosis Chronic heart failure with preserved ejection fraction (HFpEF) (HCC)- Primary [facility] [place] [facility] Diagnosis White coat syndrome with hypertension- Primary [facility] [place] [facility]* Diagnosis Encounter for [...] IV, or unspecified [facility] [place] [facility] Diagnosis Telogen effluvium- [...] Ph[facility]itis, unspecified [facility] Chronic back pain, unspecified back location, unspecified back pain laterality- Primary [facility] Diagnosis Rib pain on right side- Primary Chest pain, unspecified Epigastric abdominal tenderness without rebound tenderness Thoracogenic scoliosis, unspecified spinal region [facility] Diagnosis Palpitation- Primary Palpitations [facility] Diagnosis Acute right-sided thoracic back [...] health care facility [facility] Diagnosis 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 Degenerative scoliosis in adult patient Chronic thoracic back pain, unspecified back pain laterality [facility] [place] [facility] Diagnosis Sensorineural hearing loss, bilateral- Primary [facility] [place] [facility]* Diagnosis Telogen effluvium [facility] [place] [facility]* Diagnosis Acute right-sided thoracic back pain [facility] [place] [facility]* Diagnosis Epigastric abdominal tenderness without rebound tenderness [facility] [place] [facility]* Diagnosis Medicare annual wellness visit, subsequent Routine general medical examination at a [facility] care facility Epigastric pain Abdominal pain, epigastric [facility] [place] [facility]* Diagnosis Urinary retention Retention of urine, unspecified [facility] [place] [facility]* Diagnosis Exertional dyspnea Other dyspnea and respiratory abnormality [facility] [place] [facility]* Diagnosis Chronic thoracic back pain, unspecified back pain laterality- Primary 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 [facility] [place] [facility]* Diagnosis Chronic diastolic (congestive) heart failure (HCC)- Primary [facility] [place] [facility]* Diagnosis Chronic thoracic back pain, unspecified back pain laterality- Primary Degenerative scoliosis in adult patient 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 [facility] Diagnosis Essential hypertension Unspecified essential hypertension [facility] [place] noteNo assessment information availableWC[facility] Work Phone: Evaluation note* Diagnosis Personal history of malignant neoplasm of breast- Primary Encounter for screening mammogram for malignant neoplasm of breast Other screening mammogram [facility] [place] [facility]* Diagnosis Encounter for screening mammogram for breast cancer- Primary [facility] Diagnosis Essential hypertension Unspecified essential hypertension [facility] [place] [facility]* Diagnosis Situational depression- Primary Adjustment disorder with depressed mood [facility] [place] [facility]* Diagnosis Abnormal mammogram- Primary Abnormal mammogram, unspecified Fibrocystic breast changes of both breasts Dense breast Inconclusive mammogram Personal history of breast cancer Personal history of malignant neoplasm of breast [facility] [place] [facility]* Diagnosis 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 Collagenous colitis Other and unspecified noninfectious gastroenteritis and colitis [facility] Diagnosis Essential hypertension Unspecified essential hypertension [facility] [place] [facility]* Diagnosis Situational depression- [...] disease (HCC) (HCC) [facility] [place] [facility]* Diagnosis Chronic diastolic (congestive) heart failure (HCC)- Primary [facility] [place] [facility]* Diagnosis Hypothyroidism, unspecified type [facility] [place] [facility]* Diagnosis Essential hypertension- Primary Unspecified essential hypertension Atherosclerosis of [place] coronary artery of [place] heart without angina pectoris Changes in vascular [...] diastolic (congestive) heart failure (HCC) Atherosclerosis of [place] coronary artery of [place] heart without angina pectoris Essential hypertension Unspecified [...] chronic kidney disease (HCC) (HCC) Atherosclerosis of [place] coronary artery of [place] heart without angina pectoris Exertional dyspnea Other [...] arm and forearm [facility] Essential hypertension- Primary Unspecified essential hypertension Atherosclerosis of [place] coronary artery of [place] heart without angina pectoris Changes in vascular [...] diastolic (congestive) heart failure (HCC) Atherosclerosis of [place] coronary artery of [place] heart without angina pectoris Essential hypertension Unspecified [...] chronic kidney disease (HCC) (HCC) Atherosclerosis of [place] coronary artery of [place] heart without angina pectoris Exertional dyspnea Other [...] mood Dysuria- Primary [facility] Diagnosis Essential hypertension- Primary Unspecified essential hypertension Atherosclerosis of [place] coronary artery of [place] heart without angina pectoris Changes in vascular [...] diastolic (congestive) heart failure (HCC) Atherosclerosis of [place] coronary artery of [place] heart without angina pectoris Essential hypertension Unspecified [...] chronic kidney disease (HCC) (HCC) Atherosclerosis of [place] coronary artery of [place] heart without angina pectoris Exertional dyspnea Other [...] Urinary frequency- Primary [facility] Diagnosis Essential hypertension- Primary Unspecified essential hypertension Atherosclerosis of [place] coronary artery of [place] heart without angina pectoris Changes in vascular [...] diastolic (congestive) heart failure (HCC) Atherosclerosis of [place] coronary artery of [place] heart without angina pectoris Essential hypertension Unspecified [...] chronic kidney disease (HCC) (HCC) Atherosclerosis of [place] coronary artery of [place] heart without angina pectoris Exertional dyspnea Other [...] for breast cancer [facility] Diagnosis Essential hypertension- Primary Unspecified essential hypertension Atherosclerosis of [place] coronary artery of [place] heart without angina pectoris Changes in vascular [...] diastolic (congestive) heart failure (HCC) Atherosclerosis of [place] coronary artery of [place] heart without angina pectoris Essential hypertension Unspecified [...] chronic kidney disease (HCC) (HCC) Atherosclerosis of [place] coronary artery of [place] heart without angina pectoris Exertional dyspnea Other [...] hematuria Acute cystitis [facility] Diagnosis Essential hypertension- Primary Unspecified essential hypertension Atherosclerosis of [place] coronary artery of [place] heart without angina pectoris Changes in vascular [...] diastolic (congestive) heart failure (HCC) Atherosclerosis of [place] coronary artery of [place] heart without angina pectoris Essential hypertension Unspecified [...] chronic kidney disease (HCC) (HCC) Atherosclerosis of [place] coronary artery of [place] heart without angina pectoris Exertional dyspnea Other [...] with depressed mood [facility] Diagnosis Essential hypertension- Primary Unspecified essential hypertension Atherosclerosis of [place] coronary artery of [place] heart without angina pectoris Changes in vascular [...] diastolic (congestive) heart failure (HCC) Atherosclerosis of [place] coronary artery of [place] heart without angina pectoris Essential hypertension Unspecified [...] chronic kidney disease (HCC) (HCC) Atherosclerosis of [place] coronary artery of [place] heart without angina pectoris Exertional dyspnea Other [...] IV, or unspecified [facility] Diagnosis Essential hypertension- Primary Unspecified essential hypertension Atherosclerosis of [place] coronary artery of [place] heart without angina pectoris Changes in vascular [...] diastolic (congestive) heart failure (HCC) Atherosclerosis of [place] coronary artery of [place] heart without angina pectoris Essential hypertension Unspecified [...] chronic kidney disease (HCC) (HCC) Atherosclerosis of [place] coronary artery of [place] heart without angina pectoris Exertional dyspnea Other [...] and respiratory abnormality [facility] Diagnosis Essential hypertension- Primary Unspecified essential hypertension Atherosclerosis of [place] coronary artery of [place] heart without angina pectoris Changes in vascular [...] diastolic (congestive) heart failure (HCC) Atherosclerosis of [place] coronary artery of [place] heart without angina pectoris Essential hypertension Unspecified [...] chronic kidney disease (HCC) (HCC) Atherosclerosis of [place] coronary artery of [place] heart without angina pectoris Exertional dyspnea Other [...] of urination- Primary [facility] Diagnosis Essential hypertension- Primary Unspecified essential hypertension Atherosclerosis of [place] coronary artery of [place] heart without angina pectoris Changes in vascular [...] diastolic (congestive) heart failure (HCC) Atherosclerosis of [place] coronary artery of [place] heart without angina pectoris Essential hypertension Unspecified [...] chronic kidney disease (HCC) (HCC) Atherosclerosis of [place] coronary artery of [place] heart without angina pectoris Exertional dyspnea Other [...] with depressed mood [facility] Diagnosis Essential hypertension- Primary Unspecified essential hypertension Atherosclerosis of [place] coronary artery of [place] heart without angina pectoris Changes in vascular [...] diastolic (congestive) heart failure (HCC) Atherosclerosis of [place] coronary artery of [place] heart without angina pectoris Essential hypertension Unspecified [...] chronic kidney disease (HCC) (HCC) Atherosclerosis of [place] coronary artery of [place] heart without angina pectoris Exertional dyspnea Other [...] with depressed mood [facility] Diagnosis Essential hypertension- Primary Unspecified essential hypertension Atherosclerosis of [place] coronary artery of [place] heart without angina pectoris Changes in vascular [...] diastolic (congestive) heart failure (HCC) Atherosclerosis of [place] coronary artery of [place] heart without angina pectoris Essential hypertension Unspecified [...] chronic kidney disease (HCC) (HCC) Atherosclerosis of [place] coronary artery of [place] heart without angina pectoris Exertional dyspnea Other [...] heart failure (HCC) [facility] Diagnosis Essential hypertension- Primary Unspecified essential hypertension Atherosclerosis of [place] coronary artery of [place] heart without angina pectoris Changes in vascular [...] diastolic (congestive) heart failure (HCC) Atherosclerosis of [place] coronary artery of [place] heart without angina pectoris Essential hypertension Unspecified [...] chronic kidney disease (HCC) (HCC) Atherosclerosis of [place] coronary artery of [place] heart without angina pectoris Exertional dyspnea Other [...] Unspecified essential hypertension [facility] Diagnosis Essential hypertension- Primary Unspecified essential hypertension Atherosclerosis of [place] coronary artery of [place] heart without angina pectoris Changes in vascular [...] diastolic (congestive) heart failure (HCC) Atherosclerosis of [place] coronary artery of [place] heart without angina pectoris Essential hypertension Unspecified [...] chronic kidney disease (HCC) (HCC) Atherosclerosis of [place] coronary artery of [place] heart without angina pectoris Exertional dyspnea Other [...] failure (HCC)- Primary [facility] Diagnosis Essential hypertension- Primary Unspecified essential hypertension Atherosclerosis of [place] coronary artery of [place] heart without angina pectoris Changes in vascular [...] diastolic (congestive) heart failure (HCC) Atherosclerosis of [place] coronary artery of [place] heart without angina pectoris Essential hypertension Unspecified [...] chronic kidney disease (HCC) (HCC) Atherosclerosis of [place] coronary artery of [place] heart without angina pectoris Exertional dyspnea Other [...] Unspecified essential hypertension [facility] Diagnosis Essential hypertension- Primary Unspecified essential hypertension Atherosclerosis of [place] coronary artery of [place] heart without angina pectoris Changes in vascular [...] diastolic (congestive) heart failure (HCC) Atherosclerosis of [place] coronary artery of [place] heart without angina pectoris Essential hypertension Unspecified [...] chronic kidney disease (HCC) (HCC) Atherosclerosis of [place] coronary artery of [place] heart without angina pectoris Exertional dyspnea Other [...] (HCC) (HCC)- Primary [facility] Diagnosis Essential hypertension- Primary Unspecified essential hypertension Atherosclerosis of [place] coronary artery of [place] heart without angina pectoris Changes in vascular [...] diastolic (congestive) heart failure (HCC) Atherosclerosis of [place] coronary artery of [place] heart without angina pectoris Essential hypertension Unspecified [...] chronic kidney disease (HCC) (HCC) Atherosclerosis of [place] coronary artery of [place] heart without angina pectoris Exertional dyspnea Other [...] Unspecified essential hypertension [facility] Diagnosis Essential hypertension- Primary Unspecified essential hypertension Atherosclerosis of [place] coronary artery of [place] heart without angina pectoris Changes in vascular [...] diastolic (congestive) heart failure (HCC) Atherosclerosis of [place] coronary artery of [place] heart without angina pectoris Essential hypertension Unspecified [...] chronic kidney disease (HCC) (HCC) Atherosclerosis of [place] coronary artery of [place] heart without angina pectoris Exertional dyspnea Other [...] mood Telogen effluvium [facility] Diagnosis Essential hypertension- Primary Unspecified essential hypertension Atherosclerosis of [place] coronary artery of [place] heart without angina pectoris Changes in vascular [...] diastolic (congestive) heart failure (HCC) Atherosclerosis of [place] coronary artery of [place] heart without angina pectoris Essential hypertension Unspecified [...] 3b chronic kidney disease (HCC) Atherosclerosis of ho-chunk coronary artery of ho-[place] heart without angina pectoris Exertional dyspnea Other [...] pain laterality- Primary [facility] Essential hypertension- Primary Unspecified essential hypertension Atherosclerosis of ho-[place] coronary artery of [place] heart without angina pectoris Changes in vascular [...] diastolic (congestive) heart failure (HCC) Atherosclerosis of [place] coronary artery of [place] heart without angina pectoris Essential hypertension Unspecified [...] 3b chronic kidney disease (HCC) Atherosclerosis of ho-[place] coronary artery of [place] heart without angina pectoris Exertional dyspnea Other [...] IV, or unspecified [facility] Diagnosis Essential hypertension- Primary Unspecified essential hypertension Atherosclerosis of [place] coronary artery of [place] heart without angina pectoris Changes in vascular [...] diastolic (congestive) heart failure (HCC) Atherosclerosis of [place] coronary artery of [place] heart without angina pectoris Essential hypertension Unspecified [...] 3b chronic kidney disease (HCC) Atherosclerosis of [place] coronary artery of [place] heart without angina pectoris Exertional dyspnea Other [...] Adjustment disorder with depressed mood Atherosclerosis of [place] coronary artery of [place] heart without angina pectoris- Primary Chronic diastolic [...] has been stable. [facility] Diagnosis Essential hypertension- Primary Unspecified essential hypertension Atherosclerosis of [place] coronary artery of [place] heart without angina pectoris Changes in vascular [...] diastolic (congestive) heart failure (HCC) Atherosclerosis of [place] coronary artery of [place] heart without angina pectoris Essential hypertension Unspecified [...] 3b chronic kidney disease (HCC) Atherosclerosis of [place] coronary artery of [place] heart without angina pectoris Exertional dyspnea Other [...] Adjustment disorder with depressed mood Atherosclerosis of [place] coronary artery of [place] heart without angina pectoris- Primary Chronic diastolic [...] kidney disease (HCC) documented in this encounter [facility] Discharge instructions Additional Instructions Please return for any worsening of your symptoms. Stay well-hydrated.[facility] Work Phone: Reason for referral (narrative)* Diagnostic Procedure Only (Routine) - Authorized Specialty Diagnoses / Procedures Referred By Tanya rodriguez Referred To Contact US IMAGING Diagnoses Urinary retention Procedures US PELVIS BLADDER US PELVIC NONOBSTETRIC IMAGE DCMTN LIMITED/F/U Susannah Clemente MD [address] [place] [address] Us Imaging Referral ID Status Reason Start Date Expiration Date Visits Requested Visits Authorized [id number] Authorized Auto-Generat ed Referral 2 10/31/2023 1 1 * Diagnostic Procedure Only (Routine) - Authorized Specialty Diagnoses / Procedures Referred By Contac t Referred To Contact US IMAGING Diagnoses Urinary retention Procedures US KIDNEY/BLADDER US RETROPERITONEAL REAL TIME W/[place] [address] [place] [address] Us Imaging Referral ID Status Reason Start Date Expiration Date Visits Requested Visits Authorized [id number] Authorized Auto-Generat ed Referral 2 10/31/2023 1 1 [facility] for referral (narrative)* Outpatient Procedure (Routine) - Authorized Specialty Diagnoses / Procedures Referred By Rubiaac t Referred To Contact [facility] Diagnoses Chronic heart failure with preserved ejection fraction (HCC) Procedures ECHO ECHO TTHRC R-T 2D W/WOM-MODE COMPL SPEC&COLR D Le Orourke APRN.NETWORKER [address] [place] [address] [facility] [address] [address] Referral ID Status Reason Start Date Expiration Date Visits Requested Visits Authorized [id number] Authorized Auto-Generat ed Referral 04/02/2023 11/20/2023 1 1 [facility] for referral (narrative)* Diagnostic Procedure Only (Routine) - Pending Review Specialty Diagnoses / Procedures Referred By Tanya rodriguez Referred To Contact BR IMAGING Diagnoses Encounter for screening mammogram for breast cancer Procedures NICOLE SCREENING W MICHELLE SCREENING DIGITAL BREAST TOMOSYNTHESIS BI SCREENING MAMMOGRAPHY BI 2-VIEW BREAST INC CAD Alicia Hylton APRN.NETWORKER [address] [place] [address] [facility] [address] [place] [address] Referral ID Status Reason Start Date Expiration Date Visits Requested Visits Authorized [id number] Pending Review Auto-Generat ed Referral 01/05/2023 02/04/2024 1 1 [facility] for referral (narrative)* Diagnostic Procedure Only (Routine) - Pending Review Specialty Diagnoses / Procedures Referred By Tanya t Referred To Contact [facility] Diagnoses Medicare annual wellness visit, subsequent Epigastric pain Procedures NM HEPATOBILIARY W EF AND/OR RX HEPATOBIL SYST IMAG INC GB W/PHARMA INTERVENJ Susannah Clemente MD [address] [place] [address] [facility] [address] [place] [address] Referral ID Status Reason Start Date Expiration Date Visits Requested Visits Authorized [id number] Pending Review Auto-Generat ed Referral 07/05/2023 08/03/2024 1 1 * Consult, Test, Treat (Routine) - Authorized Specialty Diagnoses / Procedures Referred By Contac t Referred To Contact Diagnoses Medicare annual wellness visit, subsequent Decreased hearing of both ears Procedures HEARING TEST/AUDIOGRAM COMPRE AUDIOMETRY THRESHOLD EVAL SP ESTEBANIJ Susannah Clemente MD [address] [place] [address] [facility] [address] [place] [address] Referral ID Status Reason Start Date Expiration Date Visits Requested Visits Authorized [id number] Authorized Auto-Generat ed Referral 07/05/2023 10/03/2023 1 1 * Consult, Test, Treat (Routine) - Authorized Specialty Diagnoses / Procedures Referred By Contac t Referred To Contact [facility] Diagnoses Medicare annual wellness visit, subsequent Thoracogenic scoliosis, unspecified spinal region Chronic thoracic back pain, unspecified back pain laterality Procedures CONSULT TO [facility] OFFICE/OUTPATIENT [facility] 60-74 MINUTES Susannah Clemente MD [address] [place] [address] Referral ID Status Reason Start Date Expiration Date Visits Requested Visits Authorized [id number] Authorized PCP Requested Referral 07/05/2023 07/04/2024 1 1 [facility] for referral (narrative)* Diagnostic Procedure Only (Routine) - Closed Specialty Diagnoses / Procedures Referred By Contac t Referred To Contact XR IMAGING Diagnoses Acute right-sided thoracic back pain Procedures XR THORACIC GENERAL 3V AP/LAT/SWIMMERS RADEX SPINE THORACIC 3 VIEWS Susannah Clemente MD [address] [place] [address] [place] [address] Referral ID Status Reason Start Date Expiration Date V isits Requested Visits Authorized [id number] Closed Auto-Generate d Referral 03/08/2023 04/06/2024 1 1 * Diagnostic Procedure Only (Routine) - Closed Specialty Diagnoses / Procedures Referred By Contac t Referred To Contact XR IMAGING Diagnoses Acute right-sided thoracic back pain Procedures XR RIBS/CHEST 3V AP RIB/OBLS/CXR RIGHT RADEX RIBS UNI W/POSTEROANT CH MINIMUM 3 VIEWS Susannah Clemente MD [address] [place] [address] [place] [address] Referral ID Status Reason Start Date Expiration Date V isits Requested Visits Authorized [id number] Closed Auto-Generate d Referral 03/08/2023 04/06/2024 1 1 [facility] for referral (narrative)* Diagnostic Procedure Only (Routine) - Closed Specialty Diagnoses / Procedures Referred By Contac t Referred To Contact US IMAGING Diagnoses Epigastric abdominal tenderness without rebound tenderness Procedures US ABD RIGHT UPPER QUADRANT US ABDOMINAL REAL TIME W/IMAGE LIMITED Susannah Clemente MD [address] [place] [address] [place] [address] Referral ID Status Reason Start Date Expiration Date V isits Requested Visits Authorized [id number] Closed Auto-Generate d Referral 03/23/2023 04/21/2024 1 1 [facility] for referral (narrative)* Diagnostic Procedure Only (Routine) - Closed Specialty Diagnoses / Procedures Referred By Tanya t Referred To Contact [facility] Diagnoses Medicare annual wellness visit, subsequent Epigastric pain Procedures NM HEPATOBILIARY W EF AND/OR RX HEPATOBIL SYST IMAG INC GB W/PHARMA INTERVENJ Susannah Clemente MD [address] [place] [address] [facility] [address] [place] [address] Referral ID Status Reason Start Date Expiration Date V isits Requested Visits Authorized [id number] Closed Auto-Generate d Referral 07/05/2023 08/03/2024 1 1 [facility] for referral (narrative)* Diagnostic Procedure Only (Routine) - Closed Specialty Diagnoses / Procedures Referred By Tanya rodriguez Referred To Contact US IMAGING Diagnoses Urinary retention Procedures US KIDNEY/BLADDER US RETROPERITONEAL REAL TIME W/IMAGE COMPLETE Susannah lCemente MD [address] [place] [address] [place] [address] Referral ID Status Reason Start Date Expiration Date V isits Requested Visits Authorized [id number] Closed Auto-Generate d Referral 10/01/2022 10/31/2023 1 1 [facility] for referral (narrative)* Diagnostic Procedure Only (Routine) - Pending Review Specialty Diagnoses / Procedures Referred By Tanya t Referred To Contact BR IM[facility] Diagnoses Personal history of malignant neoplasm of breast Encounter for screening mammogram for malignant neoplasm of breast Procedures NICOLE SCREENING W MICHELLE SCREENING DIGITAL BREAST TOMOSYNTHESIS BI SCREENING MAMMOGRAPHY BI 2-VIEW BREAST INC Ruby Gaines PA-C [address] [place] [address] [facility] [address] [place] [address] Referral ID Status Reason Start Date Expiration Date Visits Requested Visits Authorized [id number] Pending Review Auto-Generat ed Referral 12/20/2023 01/18/2025 1 1 [facility] for referral (narrative)* Diagnostic Procedure Only (Routine) - Authorized Specialty Diagnoses / Procedures Referred By Tanya t Referred To Contact [facility] Diagnoses Encounter for screening mammogram for breast cancer Procedures NICOLE SCREENING W MICHELLE SCREENING DIGITAL BREAST TOMOSYNTHESIS BI SCREENING MAMMOGRAPHY BI 2-VIEW BREAST INC CAD Alicia Hylton APRN.NETWORKER [address] [place] [id number] [facility] [address] [place] [address] Referral ID Status Reason Start Date Expiration Date Visits Requested Visits Authorized [id number] Authorized Auto-Generat ed Referral 12/31/2023 01/29/2025 1 1 [facility] for referral (narrative)* Diagnostic Procedure Only (Routine) - Authorized Specialty Diagnoses / Procedures Referred By Tanya rodriguez Referred To Contact BR IM[facility] Diagnoses Abnormal mammogram Procedures US BREAST LTD RIGHT US BREAST UNI REAL TIME WITH IMAGE LIMITED Alicia Hylton APRN.NETWORKER [address] [place] [id number] [facility] [address] [place] [address] Referral ID Status Reason Start Date Expiration Date Visits Requested Visits Authorized [id number] Authorized Auto-Generat ed Referral 01/10/2024 02/08/2025 1 1 * Diagnostic Procedure Only (Routine) - Authorized Specialty Diagnoses / Procedures Referred By Tanya t Referred To Contact [facility] Diagnoses Abnormal mammogram Procedures NICOLE DIAGNOSTIC RIGHT DIAGNOSTIC MAMMOGRAPHY COMPUTER-AIDED DETCJ UNI Alicia Hylton APRN.NETWORKER [address] [place] [address] [facility] [address] [place] [address] Referral ID Status Reason Start Date Expiration Date Visits Requested Visits Authorized [id number] Authorized Auto-Generat ed Referral 01/10/2024 02/08/2025 1 1 [facility] for referral (narrative)* Outpatient Procedure (Routine) - Pending Review Specialty Diagnoses / Procedures Referred By Contac t Referred To Contact [facility] [place] Diagnoses Chronic diastolic (congestive) heart failure (HCC) Procedures ECHO ECHO TTHRC R-T 2D W/WOM-MODE COMPL SPEC&COLR D Paul Bautista MD [address] [place] [address] [address] Referral ID Status Reason Start Date Expiration Date Visits Requested Visits Authorized [id number] Pending Review Auto-Generat ed Referral 12/30/2024 03/30/2025 1 1 * Transition of Care (Routine) - Ref Not Required Specialty Diagnoses / Procedures Referred By Contac t Referred To Contact [facility] Procedures CARDIOVASCULAR MEDICINE OP FOLLOW UP APPT ORDER Paul Bautista MD [address] [place] [address] [address] Referral ID Status Reason Start Date Expiration Date Visits Requested Visits Authorized [id number] Ref Not Required PCP Requested Referral 12/30/2024 03/30/2025 1 1 [facility] for referral (narrative)* Diagnostic Procedure Only (Routine) - Closed Specialty Diagnoses / Procedures Referred By Contjanet t Referred To Contact BR IMAG[facility] Diagnoses Encounter for screening mammogram for breast cancer Procedures NICOLE SCREENING W MICHELLE SCREENING DIGITAL BREAST TOMOSYNTHESIS BI SCREENING MAMMOGRAPHY BI 2-VIEW BREAST INC Alicia Ochoa APRN.CNP [address] [place] [address] [facility] [address] [place] [address] Referral ID Status Reason Start Date Expiration Date V isits Requested Visits Authorized [id number] Closed Auto-Generate d Referral 12/31/2023 01/29/2025 1 1 [facility] for referral (narrative)* Outpatient Procedure (Routine) - New Request Specialty Diagnoses / Procedures Referred By Contac t Referred To Contact [facility] [place] Diagnoses Exertional dyspnea Procedures STRESS ECHO TREADMILL ECHO TTHRC R-T 2D W/WO M-MODE COMPLETE REST&ST Susannah Clemente MD [address] [place] [address] [facility] [place] [address] [place] [address] Referral ID Status Reason Start Date Expiration Date Visits Requested Visits Authorized [id number] New Request Auto-Generat ed Referral 07/03/2024 07/03/2025 1 1 * Outpatient Procedure (Routine) - New Request Specialty Diagnoses / Procedures Referred By Contac t Referred To Contact [facility] [place] Diagnoses 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 disease, or chronic kidney disease (HCC) Exertional dyspnea Procedures ECG COMPLETE ECG ROUTINE ECG W/LEAST 12 LDS W/I&R Susannah Clemente MD [address] [place] [address] [facility] [place] [address] [place] [address] Referral ID Status Reason Start Date Expiration Date Visits Requested Visits Authorized [id number] New Request Auto-Generat ed Referral 07/03/2024 07/03/2025 1 1 [facility] for referral (narrative)* Diagnostic Procedure Only (Routine) - Closed Specialty Diagnoses / Procedures Referred By Tanya t Referred To Contact [facility] IM[facility] Diagnoses Encounter for screening mammogram for breast cancer Procedures NICOLE SCREENING W MICHELLE SCREENING DIGITAL BREAST TOMOSYNTHESIS BI SCREENING MAMMOGRAPHY BI 2-VIEW BREAST INC Alicia Ochoa APRN.CNP [address] [place] [address] [facility] [address] [place] [address] Referral ID Status Reason Start Date Expiration Date V isits Requested Visits Authorized [id number] Closed Auto-Generate d Referral 01/05/2023 02/04/2024 1 1 [facility] for referral (narrative)* Diagnostic Procedure Only (Routine) - Closed Specialty Diagnoses / Procedures Referred By Tanya rodriguez Referred To Contact [facility] Diagnoses Encounter for screening mammogram for malignant neoplasm of breast Procedures NICOLE SCREENING W MICHELLE SCREENING BREAST DGTL MICHELLE UNI/BILAT ADD ON SCREENING MAMMOGRAPHY BI 2-VIEW BREAST INC Ai Brar PA-C [address] [place] [address] Br Imaging [address] [place] [address] Referral ID Status Reason Start Date Expiration Date V isits Requested Visits Authorized [id number] Closed Auto-Generate d Referral 07/08/2021 08/07/2022 1 1 [facility] for referral (narrative)* Outpatient Procedure (Routine) - Authorized Specialty Diagnoses / Procedures Referred By Tanya rodriguez Referred To Contact [facility] Diagnoses Chronic diastolic (congestive) heart failure (HCC) Procedures ECHO ECHO TTHRC R-T 2D W/WOM-MODE COMPL SPEC&COLR D Paul Bautista MD [address] [place] [address] [facility] [address] [place] [address] Referral ID Status Reason Start Date Expiration Date Visits Requested Visits Authorized [id number] Authorized Auto-Generat ed Referral 4 09/13/2025 1 1 [facility] for visit Narrative* Diagnostic Procedure Only (Routine) - Closed Specialty Diagnoses / Procedures Referred By Contac t Referred To Contact XR IMAGING Diagnoses Acute right-sided thoracic back pain Procedures XR RIBS/CHEST 3V AP RIB/OBLS/CXR RIGHT RADEX RIBS UNI W/POSTEROANT CH MINIMUM 3 VIEWS Susannah Clemente MD [address] [place] [address] [place] [address] Referral ID Status Reason Start Date Expiration Date V isits Requested Visits Authorized [id number] Closed Auto-Generate d Referral 03/08/2023 04/06/2024 1 1 [facility] Summary Purpose Family History No Family History Records Found Relationship Condition Age at Onset Recorded Date/T jasen Unknown Family History?Heart Disease, Hypertension Unknown January 12, 2018 4:21pm Family History?Heart Disease, Hypertension Unknown February 01, 2018 9:41pm Advance Directives No Advanced Directives Records FoundDocuments on File Type Date Recorded Patient Double Cutter Expl anation Advance Directive(s) 12/16/2021 4:08 PM Date Activated Date Inactivated Comments 10/18/2019 5:45 PM 10/22/2019 5:44 PM Question Answer Comments Full Code Order Discussed With: Patient Documents on File Type Date Recorded Patient Double Cutter Expl anation Advance Directive(s) 12/16/2021 4:08 PM Latest Code Status on File Code Status Date Activated Date Inactivated Comments Full Code 10/18/2019 5:45 PM 10/22/2019 5:44 PM Full Code Order Discussed With: Patient Documents on File Type Date Recorded Patient Double Cutter Expl anation Advance Directive(s) 12/16/2021 4:08 PM Advance Directive(s) 11/26/2021 7:30 AM Advance Directive(s) 10/31/2021 9:14 AM Advance Directive(s) 11/23/2019 3:35 PM Advance Directive(s) 11/22/2019 10:56 AM Advance Directive(s) 02/04/2018 12:21 PM Documents on File Type Date Recorded Patient Double Cutter Expl anation Advance Directive(s) 12/16/2021 4:08 PM [...] Will No November 06 11:58am Power of Weaver Needle Loom No November 06, 2023 11:58am Date Activated Date Inactivated Comments 10/18/2019 5:45 PM 10/22/2019 5:44 PM Question Answer Comments Full Code Order Discussed With: Patient Hospital Course Note [facility] edical Records Department [address] [place] [address] Discharge Summary 10/18/19 1256 MR#: [id number] Acct: [id number] Name: ZENAIDA EVANS Rep #: [id number] : 1935 84 From: Migel Sharma MD [...] disease (HCC) Procedures CONSULT TO CARDIOLOGY OFFICE/OUTPATIENT [facility] 60-74 MINUTES Susannah Clemente MD [address] [place] [address] Referral ID Status Reason Start Date Expiration Date Visits Requested Visits Authorized [id number] Authorized PCP Requested Referral 04/14/2022 04/14/2023 1 1 Specialty Diagnoses / Procedures Referred By Contac t Referred To Contact Diagnoses Rib pain on right side Thoracogenic scoliosis, unspecified spinal region Procedures CONSULT FOR ACUPUNCTURE OFFICE/OUTPATIENT [facility] 60-74 MINUTES Susannah Clemente MD [address] [place] [address] Referral ID Status Reason Start Date Expiration Date Visits Requested Visits Authorized [id number] Pending Review PCP Requested Referral 03/23/2023 03/22/2024 1 1 Specialty Diagnoses / Procedures Referred By Contac t Referred To Contact US IMAGING Diagnoses Epigastric abdominal tenderness without rebound tenderness Procedures US ABD RIGHT UPPER QUADRANT US ABDOMINAL REAL TIME W/IMAGE LIMITED Susannah Clemente MD [address] [place] [address] Us Imaging Referral ID Status Reason Start Date Expiration Date Visits Requested Visits Authorized [id number] Authorized Auto-Generat ed Referral 03/23/2023 04/21/2024 1 1 Specialty Diagnoses / Procedures Referred By Contac t Referred To Contact [facility] Diagnoses Chronic thoracic back pain, unspecified back pain laterality 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 Procedures CONSULT TO PHYSICAL THERAPY PHYSICAL THERAPY EVALUATION HIGH COMPLEX 45 MINS Migel Garcia PA-C [address] [place] [address] [facility] [place] [address] [place] [address] Referral ID Status Reason Start Date Expiration Date Visits Requested Visits Authorized [id number] Authorized PCP Requested Referral Auto-Generate d Referral 3 08/05/2024 99 99 Specialty Diagnoses / Procedures Referred By Contac t Referred To Contact Procedures HEARING TEST/AUDIOGRAM COMPRE AUDIOMETRY THRESHOLD EVAL SP Cristina Higgins, AUD [address] [place] [address] [facility] [address] [place] [address] Referral ID Status Reason Start Date Expiration Date Visits Requested Visits Authorized [id number] Pending Review Auto-Generat ed Referral 07/26/2023 07/26/2024 1 1 Specialty Diagnoses / Procedures Referred By Contac t Referred To Contact Procedures CARDIOVASCULAR MEDICINE OP FOLLOW UP APPT ORDER Paul Bautista MD [address] [place] [address] Referral ID Status Reason Start Date Expiration Date Visits Requested Visits Authorized [id number] Ref Not Required PCP Requested Referral 03/31/2024 09/29/2024 1 1 Specialty Diagnoses / Procedures Referred By Contac t Referred To Contact Psychology Diagnoses Situational depression Procedures CONSULT TO PSYCHOLOGY OFFICE/OUTPATIENT [facility] 60 MINUTES Susannah Clemente MD [address] [place] [address] Referral ID Status Reason Start Date Expiration Date Visits Requested Visits Authorized [id number] Pending Review PCP Requested Referral 01/04/2024 01/03/2025 [...] section and content) DATE CREATED AUTHOR 04/07/2018 [facility] DATE CREATED AUTHOR AUTHOR'S ORGANIZ ATION 04/07/2018 [facility] DATE CREATED AUTHOR AUTHOR'S ORGANIZ ATION 07/10/2020 [facility] DATE CREATED AUTHOR AUTHOR'S ORGANIZ ATION 10/04/2020 [facility] DATE CREATED AUTHOR AUTHOR'S ORGANIZ ATION 02/05/2022 [facility] DATE CREATED AUTHOR AUTHOR'S ORGANIZ ATION 04/05/2025 [facility] Source Comments (unrecognize d section and content) In the event this informatio n is protected by the Federal Confidentiality of Alcohol and Drug Abuse Patient Records regulations: The Federal rules restrict any use of the information to criminally investigate or prosecute any alcohol or drug abuse patient.[facility] the event this information is protected by the Federal Confidentiality of Alcohol and Drug Abuse Patient Records regulations: The Federal rules restrict any use of the information to criminally investigate or prosecute any alcohol or drug abuse patient.[facility] the event this information is protected by the Federal Confidentiality of Alcohol and Drug Abuse Patient Records regulations: The Federal rules restrict any use of the information to criminally investigate or prosecute any alcohol or drug abuse patient.[facility] the event this information is protected by the Federal Confidentiality of Alcohol and Drug Abuse Patient Records regulations: The Federal rules restrict any use of the information to criminally investigate or prosecute any alcohol or drug abuse patient.[facility] the event this information is protected by the Federal Confidentiality of Alcohol and Drug Abuse Patient Records regulations: The Federal rules restrict any use of the information to criminally investigate or prosecute any alcohol or drug abuse patient.[facility] the event this information is protected by the Federal Confidentiality of Alcohol and Drug Abuse Patient Records regulations: The Federal rules restrict any use of the information to criminally investigate or prosecute any alcohol or drug abuse patient.[facility]In the event this information is protected by the Federal Confidentiality of Alcohol and Drug Abuse Patient Records regulations: The Federal rules restrict any use of the information to criminally investigate or prosecute any alcohol or drug abuse patient.[facility] HospitalIn the event this information is protected by the Federal Confidentiality of Alcohol and Drug Abuse Patient Records regulations: The Federal rules restrict any use of the information to criminally investigate or prosecute any alcohol or drug abuse patient.[facility] HospitalIn the event this information is protected by the Federal Confidentiality of Alcohol and Drug Abuse Patient Records regulations: The Federal rules restrict any use of the information to criminally investigate or prosecute any alcohol or drug abuse patient.[facility] HospitalIn the event this information is protected by the Federal Confidentiality of Alcohol and Drug Abuse Patient Records regulations: The Federal rules restrict any use of the information to criminally investigate or prosecute any alcohol or drug abuse patient.[facility] HospitalIn the event this information is protected by the Federal Confidentiality of Alcohol and Drug Abuse Patient Records regulations: The Federal rules restrict any use of the information to criminally investigate or prosecute any alcohol or drug abuse patient.[facility] HospitalIn the event this information is protected by the Federal Confidentiality of Alcohol and Drug Abuse Patient Records regulations: The Federal rules restrict any use of the information to criminally investigate or prosecute any alcohol or drug abuse patient.[facility] HospitalIn the event this information is protected by the Federal Confidentiality of Alcohol and Drug Abuse Patient Records regulations: The Federal rules restrict any use of the information to criminally investigate or prosecute any alcohol or drug abuse patient.[facility] HospitalIn the event this information is protected by the Federal Confidentiality of Alcohol and Drug Abuse Patient Records regulations: The Federal rules restrict any use of the information to criminally investigate or prosecute any alcohol or drug abuse patient.[facility] HospitalIn the event this information is protected by the Federal Confidentiality of Alcohol and Drug Abuse Patient Records regulations: The Federal rules restrict any use of the information to criminally investigate or prosecute any alcohol or drug abuse patient.[facility] HospitalIn the event this information is protected by the Federal Confidentiality of Alcohol and Drug Abuse Patient Records regulations: The Federal rules restrict any use of the information to criminally investigate or prosecute any alcohol or drug abuse patient.[facility] HospitalIn the event this information is protected by the Federal Confidentiality of Alcohol and Drug Abuse Patient Records regulations: The Federal rules restrict any use of the information to criminally investigate or prosecute any alcohol or drug abuse patient.[facility] HospitalIn the event this information is protected by the Federal Confidentiality of Alcohol and Drug Abuse Patient Records regulations: The Federal rules restrict any use of the information to criminally investigate or prosecute any alcohol or drug abuse patient.[facility] HospitalIn the event this information is protected by the Federal Confidentiality of Alcohol and Drug Abuse Patient Records regulations: The Federal rules restrict any use of the information to criminally investigate or prosecute any alcohol or drug abuse patient.[facility] HospitalIn the event this information is protected by the Federal Confidentiality of Alcohol and Drug Abuse Patient Records regulations: The Federal rules restrict any use of the information to criminally investigate or prosecute any alcohol or drug abuse patient.[facility] HospitalIn the event this information is protected by the Federal Confidentiality of Alcohol and Drug Abuse Patient Records regulations: The Federal rules restrict any use of the information to criminally investigate or prosecute any alcohol or drug abuse patient.[facility] HospitalIn the event this information is protected by the Federal Confidentiality of Alcohol and Drug Abuse Patient Records regulations: The Federal rules restrict any use of the information to criminally investigate or prosecute any alcohol or drug abuse patient.[facility] HospitalIn the event this information is protected by the Federal Confidentiality of Alcohol and Drug Abuse Patient Records regulations: The Federal rules restrict any use of the information to criminally investigate or prosecute any alcohol or drug abuse patient.[facility] HospitalIn the event this information is protected by the Federal Confidentiality of Alcohol and Drug Abuse Patient Records regulations: The Federal rules restrict any use of the information to criminally investigate or prosecute any alcohol or drug abuse patient.[facility] HospitalIn the event this information is protected by the Federal Confidentiality of Alcohol and Drug Abuse Patient Records regulations: The Federal rules restrict any use of the information to criminally investigate or prosecute any alcohol or drug abuse patient.[facility] HospitalIn the event this information is protected by the Federal Confidentiality of Alcohol and Drug Abuse Patient Records regulations: The Federal rules restrict any use of the information to criminally investigate or prosecute any alcohol or drug abuse patient.[facility] HospitalIn the event this information is protected by the Federal Confidentiality of Alcohol and Drug Abuse Patient Records regulations: The Federal rules restrict any use of the information to criminally investigate or prosecute any alcohol or drug abuse patient.[facility] HospitalIn the event this information is protected by the Federal Confidentiality of Alcohol and Drug Abuse Patient Records regulations: The Federal rules restrict any use of the information to criminally investigate or prosecute any alcohol or drug abuse patient.[facility] HospitalIn the event this information is protected by the Federal Confidentiality of Alcohol and Drug Abuse Patient Records regulations: The Federal rules restrict any use of the information to criminally investigate or prosecute any alcohol or drug abuse patient.[facility] HospitalIn the event this information is protected by the Federal Confidentiality of Alcohol and Drug Abuse Patient Records regulations: The Federal rules restrict any use of the information to criminally investigate or prosecute any alcohol or drug abuse patient.[facility] HospitalIn the event this information is protected by the Federal Confidentiality of Alcohol and Drug Abuse Patient Records regulations: The Federal rules restrict any use of the information to criminally investigate or prosecute any alcohol or drug abuse patient.[facility] HospitalIn the event this information is protected by the Federal Confidentiality of Alcohol and Drug Abuse Patient Records regulations: The Federal rules restrict any use of the information to criminally investigate or prosecute any alcohol or drug abuse patient.[facility] HospitalIn the event this information is protected by the Federal Confidentiality of Alcohol and Drug Abuse Patient Records regulations: The Federal rules restrict any use of the information to criminally investigate or prosecute any alcohol or drug abuse patient.[facility] HospitalIn the event this information is protected by the Federal Confidentiality of Alcohol and Drug Abuse Patient Records regulations: The Federal rules restrict any use of the information to criminally investigate or prosecute any alcohol or drug abuse patient.[facility] HospitalIn the event this information is protected by the Federal Confidentiality of Alcohol and Drug Abuse Patient Records regulations: The Federal rules restrict any use of the information to criminally investigate or prosecute any alcohol or drug abuse patient.[facility] HospitalIn the event this information is protected by the Federal Confidentiality of Alcohol and Drug Abuse Patient Records regulations: The Federal rules restrict any use of the information to criminally investigate or prosecute any alcohol or drug abuse patient.[facility] HospitalIn the event this information is protected by the Federal Confidentiality of Alcohol and Drug Abuse Patient Records regulations: The Federal rules restrict any use of the information to criminally investigate or prosecute any alcohol or drug abuse patient.[facility] HospitalIn the event this information is protected by the Federal Confidentiality of Alcohol and Drug Abuse Patient Records regulations: The Federal rules restrict any use of the information to criminally investigate or prosecute any alcohol or drug abuse patient.[facility] HospitalIn the event this information is protected by the Federal Confidentiality of Alcohol and Drug Abuse Patient Records regulations: The Federal rules restrict any use of the information to criminally investigate or prosecute any alcohol or drug abuse patient.[facility] HospitalIn the event this information is protected by the Federal Confidentiality of Alcohol and Drug Abuse Patient Records regulations: The Federal rules restrict any use of the information to criminally investigate or prosecute any alcohol or drug abuse patient.[facility] HospitalIn the event this information is protected by the Federal Confidentiality of Alcohol and Drug Abuse Patient Records regulations: The Federal rules restrict any use of the information to criminally investigate or prosecute any alcohol or drug abuse patient.[facility] HospitalIn the event this information is protected by the Federal Confidentiality of Alcohol and Drug Abuse Patient Records regulations: The Federal rules restrict any use of the information to criminally investigate or prosecute any alcohol or drug abuse patient.[facility] HospitalIn the event this information is protected by the Federal Confidentiality of Alcohol and Drug Abuse Patient Records regulations: The Federal rules restrict any use of the information to criminally investigate or prosecute any alcohol or drug abuse patient.[facility] HospitalIn the event this information is protected by the Federal Confidentiality of Alcohol and Drug Abuse Patient Records regulations: The Federal rules restrict any use of the information to criminally investigate or prosecute any alcohol or drug abuse patient.[facility] HospitalIn the event this information is protected by the Federal Confidentiality of Alcohol and Drug Abuse Patient Records regulations: The Federal rules restrict any use of the information to criminally investigate or prosecute any alcohol or drug abuse patient.[facility] HospitalIn the event this information is protected by the Federal Confidentiality of Alcohol and Drug Abuse Patient Records regulations: The Federal rules restrict any use of the information to criminally investigate or prosecute any alcohol or drug abuse patient.[facility] HospitalIn the event this information is protected by the Federal Confidentiality of Alcohol and Drug Abuse Patient Records regulations: The Federal rules restrict any use of the information to criminally investigate or prosecute any alcohol or drug abuse patient.[facility] HospitalIn the event this information is protected by the Federal Confidentiality of Alcohol and Drug Abuse Patient Records regulations: The Federal rules restrict any use of the information to criminally investigate or prosecute any alcohol or drug abuse patient.[facility] HospitalIn the event this information is protected by the Federal Confidentiality of Alcohol and Drug Abuse Patient Records regulations: The Federal rules restrict any use of the information to criminally investigate or prosecute any alcohol or drug abuse patient.[facility] HospitalIn the event this information is protected by the Federal Confidentiality of Alcohol and Drug Abuse Patient Records regulations: The Federal rules restrict any use of the information to criminally investigate or prosecute any alcohol or drug abuse patient.[facility] HospitalIn the event this information is protected by the Federal Confidentiality of Alcohol and Drug Abuse Patient Records regulations: The Federal rules restrict any use of the information to criminally investigate or prosecute any alcohol or drug abuse patient.[facility] HospitalIn the event this information is protected by the Federal Confidentiality of Alcohol and Drug Abuse Patient Records regulations: The Federal rules restrict any use of the information to criminally investigate or prosecute any alcohol or drug abuse patient.[facility] HospitalIn the event this information is protected by the Federal Confidentiality of Alcohol and Drug Abuse Patient Records regulations: The Federal rules restrict any use of the information to criminally investigate or prosecute any alcohol or drug abuse patient.[facility] the event this information is protected by the Federal Confidentiality of Alcohol and Drug Abuse Patient Records regulations: The Federal rules restrict any use of the information to criminally investigate or prosecute any alcohol or drug abuse patient.[facility] HospitalIn the event this information is protected by the Federal Confidentiality of Alcohol and Drug Abuse Patient Records regulations: The Federal rules restrict any use of the information to criminally investigate or prosecute any alcohol or drug abuse patient.[facility] HospitalIn the event this information is protected by the Federal Confidentiality of Alcohol and Drug Abuse Patient Records regulations: The Federal rules restrict any use of the information to criminally investigate or prosecute any alcohol or drug abuse patient.[facility] HospitalIn the event this information is protected by the Federal Confidentiality of Alcohol and Drug Abuse Patient Records regulations: The Federal rules restrict any use of the information to criminally investigate or prosecute any alcohol or drug abuse patient.[facility] HospitalIn the event this information is protected by the Federal Confidentiality of Alcohol and Drug Abuse Patient Records regulations: The Federal rules restrict any use of the information to criminally investigate or prosecute any alcohol or drug abuse patient.[facility] HospitalIn the event this information is protected by the Federal Confidentiality of Alcohol and Drug Abuse Patient Records regulations: The Federal rules restrict any use of the information to criminally investigate or prosecute any alcohol or drug abuse patient.[facility] HospitalIn the event this information is protected by the Federal Confidentiality of Alcohol and Drug Abuse Patient Records regulations: The Federal rules restrict any use of the information to criminally investigate or prosecute any alcohol or drug abuse patient.[facility] HospitalIn the event this information is protected by the Federal Confidentiality of Alcohol and Drug Abuse Patient Records regulations: The Federal rules restrict any use of the information to criminally investigate or prosecute any alcohol or drug abuse patient.[facility] HospitalIn the event this information is protected by the Federal Confidentiality of Alcohol and Drug Abuse Patient Records regulations: The Federal rules restrict any use of the information to criminally investigate or prosecute any alcohol or drug abuse patient.[facility] HospitalIn the event this information is protected by the Federal Confidentiality of Alcohol and Drug Abuse Patient Records regulations: The Federal rules restrict any use of the information to criminally investigate or prosecute any alcohol or drug abuse patient.[facility] HospitalIn the event this information is protected by the Federal Confidentiality of Alcohol and Drug Abuse Patient Records regulations: The Federal rules restrict any use of the information to criminally investigate or prosecute any alcohol or drug abuse patient.[facility] HospitalIn the event this information is protected by the Federal Confidentiality of Alcohol and Drug Abuse Patient Records regulations: The Federal rules restrict any use of the information to criminally investigate or prosecute any alcohol or drug abuse patient.[facility] HospitalIn the event this information is protected by the Federal Confidentiality of Alcohol and Drug Abuse Patient Records regulations: The Federal rules restrict any use of the information to criminally investigate or prosecute any alcohol or drug abuse patient.[facility] HospitalIn the event this information is protected by the Federal Confidentiality of Alcohol and Drug Abuse Patient Records regulations: The Federal rules restrict any use of the information to criminally investigate or prosecute any alcohol or drug abuse patient.[facility] HospitalIn the event this information is protected by the Federal Confidentiality of Alcohol and Drug Abuse Patient Records regulations: The Federal rules restrict any use of the information to criminally investigate or prosecute any alcohol or drug abuse patient.[facility] HospitalIn the event this information is protected by the Federal Confidentiality of Alcohol and Drug Abuse Patient Records regulations: The Federal rules restrict any use of the information to criminally investigate or prosecute any alcohol or drug abuse patient.[facility] HospitalIn the event this information is protected by the Federal Confidentiality of Alcohol and Drug Abuse Patient Records regulations: The Federal rules restrict any use of the information to criminally investigate or prosecute any alcohol or drug abuse patient.[facility] HospitalIn the event this information is protected by the Federal Confidentiality of Alcohol and Drug Abuse Patient Records regulations: The Federal rules restrict any use of the information to criminally investigate or prosecute any alcohol or drug abuse patient.[facility] HospitalIn the event this information is protected by the Federal Confidentiality of Alcohol and Drug Abuse Patient Records regulations: The Federal rules restrict any use of the information to criminally investigate or prosecute any alcohol or drug abuse patient.[facility] HospitalIn the event this information is protected by the Federal Confidentiality of Alcohol and Drug Abuse Patient Records regulations: The Federal rules restrict any use of the information to criminally investigate or prosecute any alcohol or drug abuse patient.[facility] HospitalIn the event this information is protected by the Federal Confidentiality of Alcohol and Drug Abuse Patient Records regulations: The Federal rules restrict any use of the information to criminally investigate or prosecute any alcohol or drug abuse patient.[facility] HospitalIn the event this information is protected by the Federal Confidentiality of Alcohol and Drug Abuse Patient Records regulations: The Federal rules restrict any use of the information to criminally investigate or prosecute any alcohol or drug abuse patient.[facility] HospitalIn the event this information is protected by the Federal Confidentiality of Alcohol and Drug Abuse Patient Records regulations: The Federal rules restrict any use of the information to criminally investigate or prosecute any alcohol or drug abuse patient.[facility] HospitalIn the event this information is protected by the Federal Confidentiality of Alcohol and Drug Abuse Patient Records regulations: The Federal rules restrict any use of the information to criminally investigate or prosecute any alcohol or drug abuse patient.[facility] HospitalIn the event this information is protected by the Federal Confidentiality of Alcohol and Drug Abuse Patient Records regulations: The Federal rules restrict any use of the information to criminally investigate or prosecute any alcohol or drug abuse patient.[facility] HospitalIn the event this information is protected by the Federal Confidentiality of Alcohol and Drug Abuse Patient Records regulations: The Federal rules restrict any use of the information to criminally investigate or prosecute any alcohol or drug abuse patient.[facility] HospitalIn the event this information is protected by the Federal Confidentiality of Alcohol and Drug Abuse Patient Records regulations: The Federal rules restrict any use of the information to criminally investigate or prosecute any alcohol or drug abuse patient.[facility] HospitalIn the event this information is protected by the Federal Confidentiality of Alcohol and Drug Abuse Patient Records regulations: The Federal rules restrict any use of the information to criminally investigate or prosecute any alcohol or drug abuse patient.[facility] HospitalIn the event this information is protected by the Federal Confidentiality of Alcohol and Drug Abuse Patient Records regulations: The Federal rules restrict any use of the information to criminally investigate or prosecute any alcohol or drug abuse patient.[facility]In the event this information is protected by the Federal Confidentiality of Alcohol and Drug Abuse Patient Records regulations: The Federal rules restrict any use of the information to criminally investigate or prosecute any alcohol or drug abuse patient.[facility] HospitalIn the event this information is protected by the Federal Confidentiality of Alcohol and Drug Abuse Patient Records regulations: The Federal rules restrict any use of the information to criminally investigate or prosecute any alcohol or drug abuse patient.[facility]In the event this information is protected by the Federal Confidentiality of Alcohol and Drug Abuse Patient Records regulations: The Federal rules restrict any use of the information to criminally investigate or prosecute any alcohol or drug abuse patient.[facility] HospitalIn the event this information is protected by the Federal Confidentiality of Alcohol and Drug Abuse Patient Records regulations: The Federal rules restrict any use of the information to criminally investigate or prosecute any alcohol or drug abuse patient.[facility] HospitalIn the event this information is protected by the Federal Confidentiality of Alcohol and Drug Abuse Patient Records regulations: The Federal rules restrict any use of the information to criminally investigate or prosecute any alcohol or drug abuse patient.[facility] HospitalIn the event this information is protected by the Federal Confidentiality of Alcohol and Drug Abuse Patient Records regulations: The Federal rules restrict any use of the information to criminally investigate or prosecute any alcohol or drug abuse patient.[facility] HospitalIn the event this information is protected by the Federal Confidentiality of Alcohol and Drug Abuse Patient Records regulations: The Federal rules restrict any use of the information to criminally investigate or prosecute any alcohol or drug abuse patient.[facility] HospitalIn the event this information is protected by the Federal Confidentiality of Alcohol and Drug Abuse Patient Records regulations: The Federal rules restrict any use of the information to criminally investigate or prosecute any alcohol or drug abuse patient.[facility] HospitalIn the event this information is protected by the Federal Confidentiality of Alcohol and Drug Abuse Patient Records regulations: The Federal rules restrict any use of the information to criminally investigate or prosecute any alcohol or drug abuse patient.[facility] HospitalIn the event this information is protected by the Federal Confidentiality of Alcohol and Drug Abuse Patient Records regulations: The Federal rules restrict any use of the information to criminally investigate or prosecute any alcohol or drug abuse patient.[facility] HospitalIn the event this information is protected by the Federal Confidentiality of Alcohol and Drug Abuse Patient Records regulations: The Federal rules restrict any use of the information to criminally investigate or prosecute any alcohol or drug abuse patient.[facility] HospitalIn the event this information is protected by the Federal Confidentiality of Alcohol and Drug Abuse Patient Records regulations: The Federal rules restrict any use of the information to criminally investigate or prosecute any alcohol or drug abuse patient.[facility] HospitalIn the event this information is protected by the Federal Confidentiality of Alcohol and Drug Abuse Patient Records regulations: The Federal rules restrict any use of the information to criminally investigate or prosecute any alcohol or drug abuse patient.[facility] HospitalIn the event this information is protected by the Federal Confidentiality of Alcohol and Drug Abuse Patient Records regulations: The Federal rules restrict any use of the information to criminally investigate or prosecute any alcohol or drug abuse patient.[facility] HospitalIn the event this information is protected by the Federal Confidentiality of Alcohol and Drug Abuse Patient Records regulations: The Federal rules restrict any use of the information to criminally investigate or prosecute any alcohol or drug abuse patient.[facility] HospitalIn the event this information is protected by the Federal Confidentiality of Alcohol and Drug Abuse Patient Records regulations: The Federal rules restrict any use of the information to criminally investigate or prosecute any alcohol or drug abuse patient.[facility] HospitalIn the event this information is protected by the Federal Confidentiality of Alcohol and Drug Abuse Patient Records regulations: The Federal rules restrict any use of the information to criminally investigate or prosecute any alcohol or drug abuse patient.[facility] HospitalIn the event this information is protected by the Federal Confidentiality of Alcohol and Drug Abuse Patient Records regulations: The Federal rules restrict any use of the information to criminally investigate or prosecute any alcohol or drug abuse patient.[facility] HospitalIn the event this information is protected by the Federal Confidentiality of Alcohol and Drug Abuse Patient Records regulations: The Federal rules restrict any use of the information to criminally investigate or prosecute any alcohol or drug abuse patient.[facility] HospitalIn the event this information is protected by the Federal Confidentiality of Alcohol and Drug Abuse Patient Records regulations: The Federal rules restrict any use of the information to criminally investigate or prosecute any alcohol or drug abuse patient.[facility] HospitalIn the event this information is protected by the Federal Confidentiality of Alcohol and Drug Abuse Patient Records regulations: The Federal rules restrict any use of the information to criminally investigate or prosecute any alcohol or drug abuse patient.[facility] HospitalIn the event this information is protected by the Federal Confidentiality of Alcohol and Drug Abuse Patient Records regulations: The Federal rules restrict any use of the information to criminally investigate or prosecute any alcohol or drug abuse patient.[facility] Reason for Visit (unrecogniz ed section and content) Reason Comments Follow Up Specialty Diagnoses / Procedures Referred By Contac t Referred To Contact [facility] Diagnoses Chronic diastolic (congestive) heart failure (HCC) Procedures ECHO ECHO TTHRC R-T 2D W/WOM-MODE COMPL SPEC&[place] [address] [place] [address] Phone: tel: fax: [facility] [address] [address] Referral ID Status Reason Start Date Expiration Date V isits Requested Visits Authorized [id number] Closed Auto-Generate d Referral 09/13/2024 09/13/2025 1 1 Reason Comments Physical Therapy Specialty Diagnoses / Procedures Referred By Contac t Referred To Contact [facility] Diagnoses Chronic thoracic back pain, unspecified back pain laterality 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 Procedures CONSULT TO PHYSICAL THERAPY PHYSICAL THERAPY EVALUATION HIGH COMPLEX 45 MINS Migel Garcia PA-C [address] [place] [address] [facility] [address] [place] [address] Referral ID Status Reason Start Date Expiration Date Visits Requested Visits Authorized [id number] Authorized PCP Requested Referral Auto-Generate d Referral 08/05/2024 99 99 Reason Comments Occupational Therapy Specialty Diagnoses / Procedures Referred By Contac t Referred To Contact [facility] Diagnoses Primary osteoarthritis of first carpometacarpal joint of left hand Procedures CONSULT TO SINGLE STROKE PREFORMER OCCUPATIONAL THERAPY EVAL HIGH COMPLEX 60 MINS Joni Lew PA-C [address] [place] [address] [facility] [address] [place] [address] Referral ID Status Reason Start Date Expiration Date Visits Requested Visits Authorized [id number] Authorized PCP Requested Referral Auto-Generate d Referral 12/09/2021 12/09/2022 99 99 Reason Onset Date Comments Occupational Therapy No Show 01/27/2022 No show Reason Comments OT Progress Note Reason Comments Results Reason Comments Follow Up Reason Comments New Patient Anemia Specialty Diagnoses / Procedures Referred By Contac t Referred To Contact Hematology Diagnoses Anemia, unspecified type Procedures CONSULT TO HEMATOLOGY OFFICE/OUTPATIENT [facility] 60-74 MINUTES Susannah Clemente MD [address] [place] [address] Referral ID Status Reason Start Date Expiration Date V isits Requested Visits Authorized [id number] Closed PCP Requested Referral 02/19/2022 05/20/2022 1 1 Reason Comments Hair Loss Reason Comments Consult Specialty Diagnoses / Procedures Referred By Contac t Referred To Contact Cardiology Diagnoses 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 disease, or chronic kidney disease (HCC) Procedures CONSULT TO CARDIOLOGY OFFICE/OUTPATIENT [facility] 60-74 MINUTES Susannah Clemente MD [address] [place] [address] Referral ID Status Reason Start Date Expiration Date V isits Requested Visits Authorized [id number] Closed PCP Requested Referral 04/14/2022 04/14/2023 1 1 Reason Comments Follow Up Reason Onset Date Comments Refill Request 08/06/2022 Reason Comments Lab 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 - Other Reason Comments Established Patient Reason [...] COMPLEX 45 MINS Susannah Clemente MD [address] [place] [address] [facility] [address] [place] [address] Referral ID Status Reason Start Date Expiration Date Visits Requested Visits Authorized [id number] Authorized PCP Requested Referral Auto-Generate d Referral 03/08/2023 03/07/2024 99 99 Reason Comments Back Pain (Upper Back) Reason Comments Medicare Wellness Exam Reason Comments New Patient Low Back Pain Specialty Diagnoses / Procedures Referred By Contac t Referred To Contact [facility] Diagnoses Medicare annual wellness visit, subsequent Thoracogenic scoliosis, unspecified spinal region Chronic thoracic back pain, unspecified back pain laterality Procedures [facility]SULT [facility] OFF[facility]/OUTPATIENT NEW HIGH MDM 60-74 MINUTES Susannah Clemente MD [address] [place] [address] Referral ID Status Reason Start Date Expiration Date V isits Requested Visits Authorized [id number] Closed PCP Requested Referral 07/05/2023 07/04/2024 1 1 Specialty Diagnoses / Procedures Referred By Contac t Referred To Contact Diagnoses Medicare annual wellness visit, subsequent Decreased hearing of both ears Procedures HEARING TEST/AUDIOGRAM COMPRE AUDIOMETRY THRESHOLD EVAL SP RECOGNIJ Susannah Clemente MD [address] [place] [address] [facility] [address] [place] [address] Referral ID Status Reason Start Date Expiration Date V isits Requested Visits Authorized [id number] Closed Auto-Generate d Referral 07/05/2023 10/03/2023 1 1 Reason Comments Refill Request Reason Comments Radiology US Specialty Diagnoses / Procedures Referred By Contac t Referred To Contact [facility] IMAG[facility] Diagnoses Epigastric abdominal tenderness without rebound tenderness Procedures US ABD RIGHT UPPER QUADRANT US ABDOMINAL REAL TIME W/[place] [address] [place] [address] [facility] [place] [address] Referral ID Status Reason Start Date Expiration Date V isits Requested Visits Authorized [id number] Closed Auto-Generate d Referral 03/23/2023 04/21/2024 1 1 Reason Comments Radiology NM Specialty Diagnoses / Procedures Referred By Contac t Referred To Contact [facility] Diagnoses Medicare annual wellness visit, subsequent Epigastric pain Procedures NM HEPATOBILIARY W EF AND/OR RX HEPATOBIL SYST IMAG INC GB W/PHARMA INTERVENJ Susannah Clemente MD [address] [place] [address] [facility] [address] [place] [address] Referral ID Status Reason Start Date Expiration Date V isits Requested Visits Authorized [id number] Closed Auto-Generate d Referral 07/05/2023 08/03/2024 1 1 Specialty Diagnoses / Procedures Referred By Contac t Referred To Contact US IMAG[facility] Diagnoses Urinary retention Procedures US PELVIS BLADDER US PELVIC NONOBSTETRIC IMAGE DCMTN LIMITED/F/U Susannah Clemente MD [address] [place] [address] [facility] [place] [address] Referral ID Status Reason Start Date Expiration Date V isits Requested Visits Authorized [id number] Closed Auto-Generate d Referral 10/01/2022 10/31/2023 1 [...] BI 2-VIEW BREAST INC CAD Alicia Hylton, CIRCUIT COURT [email or web address].[email or web address] [address] [place] [address] [facility] [address] [place] [address] Referral ID Status Reason Start Date Expiration Date V isits Requested Visits Authorized [id number] Closed Auto-Generate d Referral 12/31/2023 01/29/2025 1 [...] Expiration Date V isits Requested Visits Authorized [id number] Closed Auto-Generate d Referral 01/05/2023 02/04/2024 1 [...] BREAST INC CAD Ai Mtz PA-C [address] [place] [address] [facility] [address] [place] [address] Referral ID Status Reason Start Date Expiration Date V isits Requested Visits Authorized [id number] Closed Auto-Generate d Referral 07/08/2021 08/07/2022 1 [...] Comments Nm Pet Request Reason Comments Forms [facility] Teams (unrecognized sec tion and content) Redevelopment Manager Relationship Specialty Start Date End Date Susannah Clemente MD [address] [place], [place] [id number] PCP - General Internal Medicine 11/10/16 Erwin Alfred MD [address] [place] [address] Primary Staff Physician Cardiology 11/07/21 Redevelopment Manager Relationship Specialty Start Date End Date Susannah Clemente MD [address] [place], [place] [id number] PCP - General Internal Medicine 11/10/16 Erwin Alfred MD [address] [place] [address] Primary Staff Physician Cardiology 11/07/21 Redevelopment Manager Relationship Specialty Start Date End Date Susannah Clemente MD [address] [place], [place] [id number] PCP - General Internal Medicine 11/10/16 Erwin Alfred MD [address] [place] [address] Primary Staff Physician Cardiology 11/07/21 Redevelopment Manager Relationship Specialty Start Date End Date Susannah Clemente MD [address] [place], [place] [id number] PCP - General Internal Medicine 11/10/16 Erwin Alfred MD [address] [place] [address] Primary Staff Physician Cardiology 11/07/21 Redevelopment Manager Relationship Specialty Start Date End Date Susannah Clemente MD [address] [place], [place] [address] PCP - General Internal Medicine 11/10/16 Erwin Alfred MD [address] [address] Primary Staff Physician Cardiology 11/07/21 Redevelopment Manager Relationship Specialty Start Date End Date Susannah Clemente MD [address] [place], [place] 3412[address] PCP - General Internal Medicine 11/10/16 Erwin Alfred MD [address] [address] Primary Staff Physician Cardiology 11/07/21 Redevelopment Manager Relationship Specialty Start Date End Date Susannah Clemente MD [address] [place], [place] [address]772 PCP - General Internal Medicine 11/10/16 Erwin Alfred MD [address] [address] Primary Staff Physician Cardiology 11/07/21 Redevelopment Manager Relationship Specialty Start Date End Date Susannah Clemente MD [address] [place], [place] 759732 PCP - General Internal Medicine 11/10/16 Erwin Alfred MD [address] [address] Primary Staff Physician Cardiology 11/07/21 Redevelopment Manager Relationship Specialty Start Date End Date Susannah Clemente MD [address] [place], [place] 796782 PCP - General Internal Medicine 11/10/16 Erwin Alfred MD [address] [place] [address] Primary Staff Physician Cardiology 11/07/21 Redevelopment Manager Relationship Specialty Start Date End Date Susannah Clemente MD [address] [place] [address] PCP - General Internal Medicine 11/10/16 Erwin Alfred MD [address] [place] [address] Primary Staff Physician Cardiology 11/07/21 Redevelopment Manager Relationship Specialty Start Date End Date Susannah Clemente MD [address] [place] [address] PCP - General Internal Medicine 11/10/16 Erwin Alfred MD [address] [place] [address] Primary Staff Physician Cardiology 11/07/21 Redevelopment Manager Relationship Specialty Start Date End Date Susannah Clemente MD [address] [place] [address] PCP - General Internal Medicine 11/10/16 Erwin Alfred MD [address] [place] [address] Primary Staff Physician Cardiology 11/07/21 Redevelopment Manager Relationship Specialty Start Date End Date Susannah Clemente MD [address] [place] [address] PCP - General Internal Medicine 11/10/16 Erwin Alfred MD [address] [place] [address] Primary Staff Physician Cardiology 11/07/21 Redevelopment Manager Relationship Specialty Start Date End Date Susannah Clemente MD [address] [place], [place] [address] PCP - General Internal Medicine 11/10/16 Erwin Alfred MD [address] [address] Primary Staff Physician Cardiology 11/07/21 Redevelopment Manager Relationship Specialty Start Date End Date Susannah Clemente MD [address] [place], [place] 235422 PCP - General Internal Medicine 11/10/16 Erwin Alfred MD [address] [address] Primary Staff Physician Cardiology 11/07/21 Redevelopment Manager Relationship Specialty Start Date End Date Susannah Clemente MD [address] [place], [place] 9[address]252 PCP - General Internal Medicine 11/10/16 Erwin Alfred MD [address] [address] Primary Staff Physician Cardiology 11/07/21 Redevelopment Manager Relationship Specialty Start Date End Date Susannah Clemente MD [address] [place], [place] 855392 PCP - General Internal Medicine 11/10/16 Erwin Alfred MD [address] [address] Primary Staff Physician Cardiology 11/07/21 Redevelopment Manager Relationship Specialty Start Date End Date Susannah Clemente MD [address] [place] [address] PCP - General Internal Medicine 11/10/16 Erwin Alfred MD [address] [place] [address] Primary Staff Physician Cardiology 11/07/21 Redevelopment Manager Relationship Specialty Start Date End Date Susannah Clemente MD [address] [place] [address] PCP - General Internal Medicine 11/10/16 Erwin Alfred MD [address] [place] [address] Primary Staff Physician Cardiology 11/07/21 Redevelopment Manager Relationship Specialty Start Date End Date Susannah Clemente MD [address] [place] [address] PCP - General Internal Medicine 11/10/16 Ewrin Alfred MD [address] [place] [address] Primary Staff Physician Cardiology 11/07/21 Redevelopment Manager Relationship Specialty Start Date End Date Susannah Clemente MD [address] [place] [address] PCP - General Internal Medicine 11/10/16 Erwin Alfred MD [address] [place] [address] Primary Staff Physician Cardiology 11/07/21 Redevelopment Manager Relationship Specialty Start Date End Date Susannah Clemente MD PCP - General Internal Medicine 11/10/16 Erwin Alfred MD [address] [place] [address] Primary Staff Physician Cardiology 11/07/21 Redevelopment Manager Relationship Specialty Start Date End Date Susannah Clemente MD PCP - General Internal Medicine 11/10/16 Erwin Alfred MD [address] [place] [address] Primary Staff Physician Cardiology 11/07/21 Redevelopment Manager Relationship Specialty Start Date End Date Susannah Clemente MD PCP - General Internal Medicine 11/10/16 Erwin Alfred MD [address] [place] [address] Primary Staff Physician Cardiology 11/07/21 Redevelopment Manager Relationship Specialty Start Date End Date Susannah Clemente MD PCP - General Internal Medicine 11/10/16 Erwin Alfred MD [address] [place] [address] Primary Staff Physician Cardiology 11/07/21 Redevelopment Manager Relationship Specialty Start Date End Date Susannah Clemente MD PCP - General Internal Medicine 11/10/16 Erwin Alfred MD [address] [place] [address] Primary Staff Physician Cardiology 11/07/21 Redevelopment Manager Relationship Specialty Start Date End Date Susannah Clemente MD PCP - General Internal Medicine 11/10/16 Erwin Alfred MD [address] [place] [address] Primary Staff Physician Cardiology 11/07/21 Redevelopment Manager Relationship Specialty Start Date End Date Susannah Clemente MD PCP - General Internal Medicine 11/10/16 Erwin Alfred MD [address] [place] [address] Primary Staff Physician Cardiology 11/07/21 Redevelopment Manager Relationship Specialty Start Date End Date Susannah Clemente MD PCP - General Internal Medicine 11/10/16 Erwin Alfred MD [address] [place] [address] Primary Staff Physician Cardiology 11/07/21 Redevelopment Manager Relationship Specialty Start Date End Date Susannah Clemente MD PCP - General Internal Medicine 11/10/16 Erwin Alfred MD [address] [place] [address] Primary Staff Physician Cardiology 11/07/21 Redevelopment Manager Relationship Specialty Start Date End Date Susannah Clemente MD PCP - General Internal Medicine 11/10/16 Erwin Alfred MD [address] [place] [address] Primary Staff Physician Cardiology 11/07/21 Redevelopment Manager Relationship Specialty Start Date End Date Susannah Clemente MD PCP - General Internal Medicine 11/10/16 Erwin Alfred MD [address] [place], [place] [address] Primary Staff Physician Cardiology 11/07/21 Redevelopment Manager Relationship Specialty Start Date End Date Susannah Clemente MD PCP - General Internal Medicine 11/10/16 Erwin Alfred MD [address] [place] [address] Primary Staff Physician Cardiology 11/07/21 Redevelopment Manager Relationship Specialty Start Date End Date Susannah Clemente MD PCP - General Internal Medicine 11/10/16 Erwin Alfred MD [address] [place], [place] [address] Primary Staff Physician Cardiology 11/07/21 Redevelopment Manager Relationship Specialty Start Date End Date Susannah Clemente MD PCP - General Internal Medicine 11/10/16 Erwin Alfred MD [address] [place], [place] [address] Primary Staff Physician Cardiology 11/07/21 Redevelopment Manager Relationship Specialty Start Date End Date Susannah Clemente MD PCP - General Internal Medicine 11/10/16 Erwin Alfred MD [address] [place] [address] Primary Staff Physician Cardiology 11/07/21 Redevelopment Manager Relationship Specialty Start Date End Date Susannah Clemente MD PCP - General Internal Medicine 11/10/16 Erwin Alfred MD [address] [place] [address] Primary Staff Physician Cardiology 11/07/21 Redevelopment Manager Relationship Specialty Start Date End Date Susannah Clemente MD PCP - General Internal Medicine 11/10/16 Erwin Alfred MD [address] [place] [address] Primary Staff Physician Cardiology 11/07/21 Team Status: Active Member Role Status Dates Dr. Susannah Clemente MD Primary Care Provider Active Team Status: Inactive Member Role Status Dates Dr. Susannah Clemente MD Primary Care Provider Active Dr. Alberto Bernal MD Emergency Provider Active Redevelopment Manager Relationship Specialty Start Date End Date Susannah Clemente MD PCP - General Internal Medicine 11/10/16 Erwin Alfred MD [address] [place] [address] Primary Staff Physician Cardiology 11/07/21 Redevelopment Manager Relationship Specialty Start Date End Date Susannah Clemente MD PCP - General Internal Medicine 11/10/16 Erwin Alfred MD [address] [place] [address] Primary Staff Physician Cardiology 11/07/21 Redevelopment Manager Relationship Specialty Start Date End Date Susannah Clemente MD PCP - General Internal Medicine 11/10/16 Erwin Alfred MD [address] [place] [address] Primary Staff Physician Cardiology 11/07/21 Redevelopment Manager Relationship Specialty Start Date End Date Susannah Clemente MD PCP - General Internal Medicine 11/10/16 Erwin Alfred MD [address] [place] [address] Primary Staff Physician Cardiology 11/07/21 Redevelopment Manager Relationship Specialty Start Date End Date Susannah Clemente MD PCP - General Internal Medicine 11/10/16 Erwin Alfred MD [address] [place] [address] Primary Staff Physician Cardiology 11/07/21 Redevelopment Manager Relationship Specialty Start Date End Date Susannah Clemente MD PCP - General Internal Medicine 11/10/16 Erwin Alfred MD [address] [place] [address] Primary Staff Physician Cardiology 11/07/21 Redevelopment Manager Relationship Specialty Start Date End Date Susannah Clemente MD PCP - General Internal Medicine 11/10/16 Erwin Alfred MD [address] [place] [address] Primary Staff Physician Cardiology 11/07/21 Redevelopment Manager Relationship Specialty Start Date End Date Susannah Clemente MD PCP - General Internal Medicine 11/10/16 Erwin Alfred MD [address] [place] [address] Primary Staff Physician Cardiology 11/07/21 Redevelopment Manager Relationship Specialty Start Date End Date Susannah Clemente MD PCP - General Internal Medicine 11/10/16 Erwin Alfred MD [address] [place] [address] Primary Staff Physician Cardiology 11/07/21 Redevelopment Manager Relationship Specialty Start Date End Date Susannah Clemente MD PCP - General Internal Medicine 11/10/16 Erwin Alfred MD [address] [place] [address] Primary Staff Physician Cardiology 11/07/21 Redevelopment Manager Relationship Specialty Start Date End Date Susannah Clemente MD PCP - General Internal Medicine 11/10/16 Erwin Alfred MD [address] [place], [place] [address] Primary Staff Physician Cardiology 11/07/21 Redevelopment Manager Relationship Specialty Start Date End Date Susannah Clemente MD PCP - General Internal Medicine 11/10/16 Erwin Alfred MD [address] [place] [address] Primary Staff Physician Cardiology 11/07/21 Redevelopment Manager Relationship Specialty Start Date End Date Susannah Clemente MD PCP - General Internal Medicine 11/10/16 Erwin Alfred MD [address] [place], [place] [address] Primary Staff Physician Cardiology 11/07/21 Redevelopment Manager Relationship Specialty Start Date End Date Susannah Clemente MD PCP - General Internal Medicine 11/10/16 Erwin Alfred MD [address] [place], [place] [address] Primary Staff Physician Cardiology 11/07/21 Redevelopment Manager Relationship Specialty Start Date End Date Susannah Clemente MD PCP - General Internal Medicine 11/10/16 Erwin Alfred MD [address] [place], [place] [address] Primary Staff Physician Cardiology 11/07/21 Redevelopment Manager Relationship Specialty Start Date End Date Susannah Clemente MD PCP - General Internal Medicine 11/10/16 Erwin Alfred MD [address] [place] [address] Primary Staff Physician Cardiology 11/07/21 Redevelopment Manager Relationship Specialty Start Date End Date Susannah Clemente MD PCP - General Internal Medicine 11/10/16 Erwin Alfred MD [address] [place] [id number] Primary Staff Physician Cardiology 11/07/21 Redevelopment Manager Relationship Specialty Start Date End Date Susannah Clemente MD PCP - General Internal Medicine 11/10/16 Erwin Alfred MD [address] [place] [address] Primary Staff Physician Cardiology 11/07/21 Redevelopment Manager Relationship Specialty Start Date End Date Susannah Clemente MD PCP - General Internal Medicine 11/10/16 Redevelopment Manager Relationship Specialty Start Date End Date Susannah Clemente MD PCP - General Internal Medicine 11/10/16 Redevelopment Manager Relationship Specialty Start Date End Date Susannah Clemente MD PCP - General Internal Medicine 11/10/16 Redevelopment Manager Relationship Specialty Start Date End Date Susannah Clemente MD PCP - General Internal Medicine 11/10/16 Erwin Alfred MD [address] [place] [id number] Primary Staff Physician Cardiology 11/07/21 Redevelopment Manager Relationship Specialty Start Date End Date Susannah Clemente MD PCP - General Internal Medicine 11/10/16 Erwin Alfred MD [address] [place] [address] Primary Staff Physician Cardiology 11/07/21 Redevelopment Manager Relationship Specialty Start Date End Date Susannah Clemente MD PCP - General Internal Medicine 11/10/16 Erwin Alfred MD [address] [place] [address] Primary Staff Physician Cardiology 11/07/21 Redevelopment Manager Relationship Specialty Start Date End Date Susannah Clemente MD PCP - General Internal Medicine 11/10/16 Erwin Alfred MD [address] [place] [address] Primary Staff Physician Cardiology 11/07/21 Redevelopment Manager Relationship Specialty Start Date End Date Susannah Clemente MD PCP - General Internal Medicine 11/10/16 Erwin Alfred MD [address] [place] [address] Primary Staff Physician Cardiology 11/07/21 Redevelopment Manager Relationship Specialty Start Date End Date Susannah Clemente MD PCP - General Internal Medicine 11/10/16 Erwin Alfred MD [address] [place] [id number] Primary Staff Physician Cardiology 11/07/21 Ruby Hurst PA-C [address] [place] [address] Laboratory Mechanical Technician Internal Medicine 09/25/24 Redevelopment Manager Relationship Specialty Start Date End Date Susannah Clemente MD PCP - General Internal Medicine 11/10/16 Erwin Alfred MD [address] [place] [id number] Primary Staff Physician Cardiology 11/07/21 Ruby Hurst PA-C [address] [place] [address] Laboratory Mechanical Technician Internal Medicine 09/25/24 Redevelopment Manager Relationship Specialty Start Date End Date Susannah Clemente MD PCP - General Internal Medicine 11/10/16 Erwin Alfred MD [address] [place] [address] Primary Staff Physician Cardiology 11/07/21 Ruby Hurst PA-C [address] [place] [address] Laboratory Mechanical Technician Internal Medicine 09/25/24 Redevelopment Manager Relationship Specialty Start Date End Date Susannah Clemente MD PCP - General Internal Medicine 11/10/16 Erwin Alfred MD [address] [place] [address] Primary Staff Physician Cardiology 11/07/21 Ruby Hurst PA-C [address] [place] [address] Laboratory Mechanical Technician Internal Medicine 09/25/24 Redevelopment Manager Relationship Specialty Start Date End Date Susannah Clemente MD PCP - General Internal Medicine 11/10/16 Erwin Alfred MD [address] [place] [address] Primary Staff Physician Cardiology 11/07/21 Ruby Hurst PA-C [address] [place] [address] Laboratory Mechanical Technician Internal Medicine 09/25/24 Redevelopment Manager Relationship Specialty Start Date End Date Susannah Clemente MD PCP - General Internal Medicine 11/10/16 Erwin Alfred MD [address] [place] [id number] Primary Staff Physician Cardiology 11/07/21 Ruby Hurst PA-C [address] [place] [address] Laboratory Mechanical Technician Internal Medicine 09/25/24 Redevelopment Manager Relationship Specialty Start Date End Date Susannah Clemente MD PCP - General Internal Medicine 11/10/16 Erwin Alfred MD [address] [place] [address] Primary Staff Physician Cardiology 11/07/21 Ruby Hurst PA-C [address] [place] [address] Laboratory Mechanical Technician Internal Medicine 09/25/24 Redevelopment Manager Relationship Specialty Start Date End Date Susannah Clemente MD PCP - General Internal Medicine 11/10/16 Erwin Alfred MD [address] [place] [id number] Primary Staff Physician Cardiology 11/07/21 Ruby Hurst PA-C [address] [place] [address] Laboratory Mechanical Technician Internal Medicine 09/25/24 Redevelopment Manager Relationship Specialty Start Date End Date Susannah Clemente MD PCP - General Internal Medicine 11/10/16 Erwin Alfred MD [address] [place], [place] [id number] Primary Staff Physician Cardiology 11/07/21 Ruby Hurst PA-C [address] [place] [address] Laboratory Mechanical Technician Internal Medicine 09/25/24 Redevelopment Manager Relationship Specialty Start Date End Date Susannah Clemente MD PCP - General Internal Medicine 11/10/16 Erwin Alfred MD [address] [place] [id number] Primary Staff Physician Cardiology 11/07/21 Ruby Hurst PA-C [address] [place] [address] Laboratory Mechanical Technician Internal Medicine 09/25/24 Redevelopment Manager Relationship Specialty Start Date End Date Susannah Clemente MD PCP - General Internal Medicine 11/10/16 Erwin Alfred MD [address] [place] [address] Primary Staff Physician Cardiology 11/07/21 Ruby Hurst PA-C [address] [place] [address] [facility] Internal Medicine 09/25/24 Redevelopment Manager Relationship Specialty Start Date End Date Susannah Clemente MD PCP - General Internal Medicine 11/10/16 Erwin Alfred MD [address] [place] [address] Primary Staff Physician Cardiology 11/07/21 Ruby Hurst PA-C [address] [place] [address] [facility] Internal Medicine 09/25/24 Goals (unrecognized section and [...] BE BASED ON THE PRIMARY CLINICAL RECORDS. [employer] provides no warranty or guarantee of the accuracy or completeness of information in this document.
--- NOTE | 2025-04-10 00:12 | ECHOD_ITS ---
Reason For Study : Chest pain Procedure This was a 2D Doppler, Color Flow transthoracic echocardiogram. Myocardial strain analysis was performed in this exam to aid in the assessment of cardiac function. Exam performed portable in patient room. Left Ventricle Normal LV size. Apical noncompaction noted. The left ventricular ejection fraction is 60 %. Stage 1 diastolic dysfunction. No regional wall motion abnormalities noted. Right Ventricle Normal RV size. Normal systolic function. Atria Normal left atrium. Normal right atrium. Mitral Valve There is mild to moderate mitral annular calcification. Mild (1+) eccentric mitral valve insufficiency. Tricuspid Valve Normal tricuspid valve. Mild (1+) tricuspid valve insufficiency. Pulmonary artery systolic pressure is 38 mmHg. Aortic Valve Trisinus/trileaflet aortic valve. Mild (1+) aortic valve insufficiency. Pulmonic Valve Normal pulmonic valve. Great Vessels Normal aortic root. The pulmonary artery is normal size. Inferior vena cava collapse with respiration. Pericardium/Pleural No pericardial effusion. MMode/2D Measurements & Calculations LVIDd: 3.4 cm IVSd: 0.95 cm Ao root diam: 3.0 cm LVIDs: 2.1 cm LVPWd: 0.88 cm RVDd: 3.2 cm FS: 38.0 % LAV(MOD-bp): 34.2 ml LVAd ap4: 22.4 cm2 LVAd ap2: 21.7 cm2 LAV(MOD-bp) Indexed: 20.8 ml/m2 LVLd ap4: 7.3 cm LVLd ap2: 7.4 cm LAV(MOD-sp2): 29.8 ml EDV(MOD-sp4): 57.9 ml EDV(MOD-sp2): 54.0 ml LAV(MOD-sp4): 38.6 ml EDV(sp4-el): 58.6 ml EDV(sp2-el): 54.0 ml LVAs ap4: 11.1 cm2 LVAs ap2: 11.7 cm2 LVLs ap4: 6.0 cm LVLs ap2: 6.4 cm ESV(MOD-sp4): 17.7 ml ESV(MOD-sp2): 18.4 ml ESV(sp4-el): 17.3 ml ESV(sp2-el): 18.0 ml EF(MOD-sp4): 69.5 % EF(MOD-sp2): 66.0 % EF(sp4-el): 70.4 % SV(MOD-sp4): 40.2 ml SV(MOD-sp2): 35.6 ml SV(sp4-el): 41.3 ml SI(MOD-sp4): 24.4 ml/m2 SI(MOD-sp2): 21.6 ml/m2 LA A4 area: 15.3 cm2 LA dimension(2D): 2.6 cm RA A4 area: 15.2 cm2 TAPSE: 2.6 cm Time Measurements MV dec time: 0.34 sec Doppler Measurements & Calculations MV E max marshal: 74.4 cm/sec Lat Peak E' Marshal: 6.2 cm/sec Med Peak E' Marshal: 6.0 cm/sec MV A max marshal: 107.8 cm/sec E/E' lat: 12.0 E/E' med: 12.5 MV E/A: 0.69 Ao V2 max: 114.9 cm/sec AI max marshal: 468.4 cm/sec MV dec slope: 217.3 cm/sec2 Ao max P.3 mmHg AI max P.8 mmHg Ao V2 mean: 79.6 cm/sec Ao mean P.9 mmHg AI dec slope: 272.9 cm/sec2 Ao V2 VTI: 31.3 cm AI P1/2t: 502.7 msec AV (velocity ratio): 0.80 LV V1 max: 88.8 cm/sec PA V2 max: 77.9 cm/sec TR max marshal: 293.2 cm/sec LV V1 max P.2 mmHg TR max P.4 mmHg LV V1 mean P.8 mmHg LV V1 mean: 63.5 cm/sec LV V1 VTI: 25.2 cm ECHO/Echo Complete Interpretation Summary The left ventricular ejection fraction is 60 %. Normal LV size. Apical noncompaction noted There is mild to moderate mitral annular calcification. Stage 1 diastolic dysfunction. The global longitudinal strain is normal. The global longitudinal strain = -18. 9 % (normal). Ordering Physician: Migel Godoy Performed By: Alysha Conner RDCS
[2025-04-10 00:20] LABS: Troponin T High Sens 4 HR 88 ng/L (<=14)
[2025-04-10] MEDS: MELATONIN 10 MG TABLET 5 MG PO ×2 (01:09→20:28)
[2025-04-10] MEDS: Labetalol 100 MG Tablet PO ×3 (01:10→18:12)
--- OUTSIDE RECORDS SUMMARY | 2025-04-10 04:17 | XMS RPT_ITS | CCD ---
Author Organization [facility] [place] [facility] Team Providers Care Engraver Signature Name Role Phone JAMAL, SCOTTY E Unavailable Unavailable ITIN, LIU Unavailable Unavailable JAMAL, SCOTTY E Unavailable Unavailable SALAY, SUSANNAH M Unavailable Unavailable JAMAL, SCOTTY Unavailable Unavailable SALAY, MELANIE Unavailable Unavailable JAMAL, SCOTTY Unavailable Unavailable SALAY, MELANIE Unavailable Unavailable JAMAL, SCOTTY Unavailable Unavailable ITIN, LIU Unavailable Unavailable SALAY, MELANIE Unavailable Unavailable Harryay Susannah SERRANO Primary Care Provider Erwin Alfred MD Unavailable Susannah Clemente MD Primary Care Provider Erwin Alfred MD Unavailable [phone] Susannah Clemente MD Primary Care Provider [...] SUSANNAH CLEMENTE Primary Care Unavailable SUSANNAH CLEMENTE Referring Unavailable SALAY, SUSANNAH M Primary Care [...] SUSANNAH M Primary Care Unavailable MICHELE, SANJEEB Attending Unavailabl e MICHELE, SANJEEB Referring Unavailabl e SALAY, SUSANNAH M Primary Care Unavailable SALAY, SUSANNAH M Attending Unavailable SALAY, SUSANNAH M Primary Care Unavailable Salay , Dr. Mcintyre Primary Care Provider Serge Mcmullen MD Emergency Provider Dr. Migel Godoy DO Admit Provider Unavail able Dr. Migel Godoy DO Attending Provider Unav ailable Allergies Allergy Classification Reported Allergen(s) Allergy Type Date of Onset Reaction(s) Facility amLODIPine (1 source) amLODIPine Drug Allergy 03-01-20 20 Other: See Comments [facility] Work Phone: Angiotensin 2 Receptor Blockers (ARB) (1 source) Losartan Drug Allergy 11-28-19 20 Other: See Comments [facility] Anticholinergics (1 source) Scopolamine Drug Allergy 10-30-19 12 Mental Status Change [facility] Work Phone: Calcium Channel Blockers (1 source) Verapamil Drug Allergy 05-06-20 16 GI Upset [facility] empagliflozin (1 source) empagliflozin Drug Allergy 11-20-19 23 Diarrhea [facility] Work Phone: HMG-CoA Reductase Inhibitors (statins) (1 source) atorvastatin Drug Allergy 11-09-19 20 Myalgia [facility] hydrALAZINE (1 source) hydrALAZINE Drug Allergy 08-12-20 20 Intolerance [facility] Iron (1 source) Iron Drug Allergy 09-03-20 05 GI Upset [facility] Pentazocine (1 source) Pentazocine Drug Allergy 09-30-20 09 Mental Status Change [facility] Spironolactone (1 source) Spironolactone Drug Allergy 07-10-20 20 Intolerance [facility] (20 sources) iron; Translations: [IRON] Drug Allergy 09-03-20 05 GI Upset [facility] Other [facility] (20 sources) pentazocine; Translations: [PENTAZOCINE LACTATE] Drug Allergy 09-30-20 09 Mental Status Change [facility] Repository (20 sources) scopolamine; Translations: [SCOPOLAMINE] Drug Allergy 10-30-19 12 Mental Status Change [facility] Repository (20 sources) verapamil; Translations: [VERAPAMIL HCL] Drug Allergy 05-06-20 16 GI Upset [facility] Repository (20 sources) amLODIPine; Translations: [AMLODIPINE] Drug Allergy 03-01-20 Other: See Comments [facility] Work Phone: (20 sources) atorvastatin; Translations: [ATORVASTATIN] Drug Allergy 11-09-19 Myalgia [facility] Work Phone: (20 sources) hydrALAZINE; Translations: [HYDRALAZINE] Drug Allergy 08-12-20 Intolerance [facility] (20 sources) Losartan; Translations: [LOSARTAN] Drug Allergy 11-28-19 Other: See Comments [facility] Work Phone: (20 sources) Spironolactone; Translations: [SPIRONOLACTONE] Drug Allergy 07-10-20 Intolerance [facility] Work Phone: (19 sources) Thiazides; Translations: [THIAZIDES] Drug Intolerance 12-15-19 20 Contraindicati on-Medical Surgical [facility] Work Phone: (20 sources) Thiazides Drug Intolerance 12-15-19 20 Contraindicati on-Medical Surgical [facility] Work Phone: (20 sources) empagliflozin; Translations: [EMPAGLIFLOZIN] Drug Allergy 11-20-19 Diarrhea [facility] Work Phone: (2 sources) Pentazocine Drug Allergy 11-06-19 Other [facility] (20 sources) Angiotensin II receptor antagonist; Translations: [ARB-ANGIOTENSIN RECEPTOR ANTAGONIST] Propensity to adverse reactions to drug 11-16-19 Contraindicati on-Medical Surgical [facility] Work Phone: Medications Current Medications Medication Drug Class(es) Dates Sig (Normalized) Sig (Original) acetaminophen 500 mg oral tablet (2 sources) Start: 01-21-2018 take 2 tablets by mouth every eight hours Acetaminophen 500 MG tablet Active 1000 mg PO EVERY 8 HOURS January 21, 2018 12:00am Start: 01-21-2018 take 1000 mg by mout h every eight hours Acetaminophen Active 1000 MG PO EVERY 8 HOURS January 20, 2018 11:00pm amLODIPine 5 mg oral tablet (4 sources) Dihydropyridine Calcium Channel Cecilia Start: 10-18-2019 take 1 tablet by mouth once daily Amlodipine 5 MG tablet Active 5 mg PO DAILY October 18, 2019 1:00am Start: 01-28-2018 End: 02-02-2018 take 1 tablet by mouth once daily Amlodipine 5 MG tablet Discontinued 5 mg PO DAILY January 28, 2018 12:00am February 02, 2018 2:18pm budesonide 3 mg delayed release oral capsule (4 sources) Corticosteroid Start: 10-16-2019 End: 10-18-2019 Budesonide 3 MG capsule,delayed,extend.release Active 1 NMA PO THREE TIMES A DAY 0 October 18, 2019 1:49pm Start: 10-16-2019 End: 10-18-2019 Budesonide 3 MG capsule,kelsey yed,extend.release Discontinued 1 NMA THREE TIMES A DAY October 16, 2019 1:00am October 18, 2019 1:49pm cephalexin 500 mg oral capsule (7 sources) [...] on above: Take 1 capsule by mo ut twice daily for 7 days. cholecalciferol 0.025 mg oral capsule (20 sources) Vitamin D Start: 10-16-20 take 1 capsule by mouth once daily Cholecalciferol (Vitamin D3) 25 MCG capsule Active 25 ug PO DAILY October 16, 2019 1:00am End: 06-26-2024 take 1 capsule by mouth once daily Cholecalciferol, Vitamin D3, 50 mcg (2,000 unit) cap Take 1 capsule by mouth once daily. 06/26/2024 Discontinued (Course of therapy completed) Comment on above: Take 1 capsule by mo [facility] once daily. 168 hr cloNIDine 0.77256 mg/hr transdermal system (20 sources) Central alpha-2 Adrenergic Agonist Start: 01-08-2025 End: 03-27-2025 cloNIDine TTS (CATAPRES-TTS) 0.1 mg/24 hr Indications: Essential hypertension Apply 1 patch as directed one time a week. 12 patch 2 03/27/2025 Active Start: 11-06-2023 Clonidine 0.1 mg/24 hr patch weekly Active 1 NMA November 06, 2023 1:00am Start: 11-06-2023 Clonidine Acti ve November 06, [...] (20 sources) Loop Diuretic Start: 11-06-2023 Furosemide 20 mg tablet Active 20 mg November 06, 2023 1:00am Start: 11-06-2023 Furosemide Act nhan MG November 06, 2023 12:00am Start: 11-12-2021 End: 03-28-2023 take 1 tablet by mouth once furosemide (LASIX) 20 mg t ablet Take 1 tablet by mouth every Wednesday,Wednesday,Wednesday (0600). 36 tablet 3 01/13/2023 Active Start: 08-16-2020 End: 02-13-2021 take 1 tablet by mouth once furosemide (LASIX) 20 mg t ablet Take 1 tablet by mouth every Wednesday,Wednesday,Wednesday (0600). 30 tablet 1 08/16/2020 02/13/2021 Discontinued Comment on above: Take 1 tablet by rosalinda th every Wednesday,Wednesday,Wednesday (0600). gabapentin 100 mg oral capsule (2 sources) Anti-epileptic Agent Start: 019 take 2 capsules by mouth at bedtime Gabapentin 100 MG capsule Active 200 mg PO AT BEDTIME October 16, 2019 1:00am Start: 10-16-2019 take 200 mg by mouth at bedtim e Gabapentin Active 200 MG PO AT BEDTIME October 16, 2019 12:00am hydroCHLOROthiazide 25 mg oral tablet (6 sources) Thiazide Diuretic Start: 10-16-2019 Hydrochlorothiazide 25 MG tablet Active 12.5 mg PO DAILY October 16, 2019 1:31am Start: 10-16-2019 take 12.5 mg by mout h once daily Hydrochlorothiazide Active 12.5 MG PO DAILY October 16, 2019 12:31am Start: 01-18-2018 End: 10-16-2019 take 1 tablet by mouth once daily Hydrochlorothiazide 25 MG tablet Discontinued 25 mg PO DAILY January 28, 2018 4:43pm October 16, 2019 1:31am indapamide 1.25 mg oral tablet (20 sources) Thiazide-like Diuretic Start: 04-09-2025 take 1 tablet by mouth once daily Indapamide 1.25 mg tablet Active 1.25 mg PO DAILY April 09, 2025 12:00am Start: 04-03-2025 take 1 tablet by rosalinda th once daily indapamide (LOZOL) 2.5 mg tablet [...] sources) Azole Antifungal Start: 11-01-19 End: 07-26-20 24 ketoconazole (NIZORAL) 2 % shampoo Indications: Telogen [...] tablet 1 02/15/2020 08/12/2020 Discontinued Start: 10-16-2019 Labetalol 200 MG tablet Active 100 mg PO TWICE A DAY October 16, 2019 1:31am Start: 10-16-2019 take 100 mg by mouth twice daily Labetalol Active 100 MG PO TWICE A DAY October 16, 2019 12:31am Start: 02-02-2018 End: 10-16-2019 take 1 tablet by mouth twice daily Labetalol 200 MG tablet Discontinued 200 mg PO TWICE A DAY 60 February 02, 2018 12:00am October 16, 2019 1:31am Comment on above: Take 1 tablet by rosalinda th twice daily. Take 1 tablet by rosalinda th two times a day. levothyroxine sodium 0.088 mg oral tablet (20 sources) l-Thyroxine Start: 5 End: 5 take 1 tablet by mouth once daily levothyroxine (SYNTHROID) 88 mcg tablet Indications: Hypothyroidism, unspecified type Take 1 tablet by mouth once daily. 90 tablet 1 02/08/2025 08/07/2025 Active Start: 01-18-2018 End: 11-11-2024 take 1 tablet by mouth once daily levothyroxine (SYNTHROID) 88 mcg tablet Indications: Hypothyroidism, unspecified type Take 1 tablet by mouth once daily. 90 tablet 1 05/15/2024 Active Comment on above: Take 1 tablet by rosalinda once daily. melatonin 5 mg oral capsule (20 sources) Start: 10-16-2019 take 1 capsule by mouth at bedtime Melatonin 5 MG capsule Active 5 mg PO AT BEDTIME October 16, 2019 1:00am Comment on above: Take 1 capsule by mo [facility] at bedtime as needed. minoxidil 2.5 mg oral tablet (20 sources) Arteriolar Vasodilator Start: 04-09-2025 Minoxidil 2.5 mg tablet Active PO April 09, 2025 12:00am Start: 07-24-2022 End: 01-09-2025 minoxidil (LONITEN) 2.5 mg t ablet Indications: Telogen effluvium 1 TABLET DAILY 90 tablet 3 01/09/2025 Active Start: 07-22-2022 minoxidil (ADDIE ITEN) 2.5 mg tablet Indications: Telogen effluvium 1/2 tablet a day 45 tablet 3 07/22/2022 Active Start: 08-20-2021 End: 07-22-2022 minoxidil (LONITEN) 2.5 mg t ablet Start: 09-26-2020 End: 01-02-2021 minoxidil (LONITEN) 2.5 mg t ablet 1 tablet a day 90 tablet 3 09/26/2020 01/02/2021 Discontinued Start: 10-16-2019 End: 10-18-2019 Minoxidil Discontinued 0.25 mg DAILY October 16, 2019 1:00am October 18, 2019 1:48pm Start: 10-16-2019 End: 10-18-2019 Minoxidil Discontinued 0.25 [...] once daily. nitroglycerin 0.4 mg sublingual tablet (5 sources) Nitrate Vasodilator Start: 04-09-2025 Nitroglycerin 0.4 mg tablet, sublingual Active mg SL April 09, 2025 12:00am Start: 03-27-2025 nitroglycerin sublingual (NITROQUICK) 0.4 mg SL tablet Indications: Atherosclerosis of [place] coronary artery of [place] heart without angina pectoris Dissolve 1 tablet under the tongue as needed for chest pain. If no pain relief call 911. 25 tablet 1 03/27/2025 Active ondansetron 4 mg disintegrating oral tablet (20 sources) Serotonin-3 Receptor Antagonist Start: 11-06-2023 End: 07-03-2024 take 1 tablet by mouth every eight hours as needed for nausea Ondansetron 4 mg tablet,disintegrating Active 4 mg PO EVERY 8 HOURS NEEDED as needed for Nausea November 06, 2023 1:00am Start: 07-16-2020 End: 09-19-2020 take 1 tablet by mouth every eight hours as needed for nausea and nausea ondansetron (ZOFRAN) 4 mg tablet Indications: Nausea Take 1 tablet by mouth every 8 hours as needed. 30 tablet 1 07/16/2020 09/19/2020 Discontinued Start: 01-28-2018 End: 02-02-2018 take 1 tablet by mouth every four hours as needed for nausea Ondansetron 4 MG tablet Discontinued 4 mg PO EVERY 4 HOURS NEEDED as needed for NAUSEA/VOMITING January 28, 2018 12:00am February 02, 2018 2:17pm Comment on above: dissolve 1 tablet in mouth every 8 hours as needed for nausea valsartan 160 mg oral tablet (6 sources) Angiotensin 2 Receptor Cecilia Start: 10-16-2019 take 1 tablet by mouth once daily Valsartan 160 MG tablet Active 160 mg PO DAILY October 16, 2019 1:31am Start: 01-28-2018 End: 10-16-2019 take 1 tablet by mouth twice daily Valsartan 160 MG tablet Discontinued 160 mg PO TWICE A DAY January 28, 2018 12:00am October 16, 2019 1:31am Start: 01-18-2018 End: 01-28-2018 take 1 tablet by mouth once daily Valsartan 80 MG tablet Discontinued 80 mg PO DAILY January 18, 2018 12:00am January 28, 2018 4:43pm Completed/Discontinued Medications Medication Drug Class(es) Dates Sig (Normalized) Sig (Original) acetaminophen 325 mg / HYDROcodone bitartrate 5 mg oral tablet (2 sources) Opioid Agonist Start: 01-11-2018 End: 01-14-2018 Hydrocodone-Acetami nophen 1 TABLET tablet Discontinued 1 {tbl} PO EVERY 6 HOURS NEEDED as needed for Pain 8 2 January 11, 2018 4:15pm January 14, 2018 4:14pm Start: 01-11-2018 End: 01-14-2018 take 1 tablet by mouth every six hours as needed Hydrocodone-Acetaminophen Discontinued 1 TABLET PO EVERY 6 HOURS NEEDED 8 2 January 11, 2018 3:15pm January 14, 2018 3:14pm aspirin 81 mg delayed release oral tablet (15 sources) Platelet Aggregation Inhibitor, Nonsteroidal Anti-inflammatory Drug Start: 10-26-2019 End: 05-14-2022 take 1 tablet by mouth once daily aspirin, enteric coated (ECOTRIN LOW STRENGTH) 81 mg EC tablet Indications: Iron deficiency anemia secondary to inadequate dietary iron intake Take 1 tablet by mouth once daily. 10/26/2019 05/14/2022 Discontinued Start: 01-18-2018 take 1 tablet by rosalinda th once daily Aspirin 81 MG tablet,chewable Active 81 mg PO DAILY@0800 January 18, 2018 12:00am Comment on above: Take 1 tablet by rosalinda th once daily. atenolol 25 mg oral tablet (2 sources) beta-Adrenergic Cecilia Start: 01-22-20 End: 01-29-20 18 take 1 tablet by mouth at bedtime Atenolol 25 MG tablet Discontinued 25 mg PO AT BEDTIME January 21, 2018 12:00am January 28, 2018 4:43pm betamethasone 3 mg/ml / betamethasone acetate 3 mg/ml injectable suspension (1 source) Corticosteroid Start: 11-24-19 End: 11-24-19 betamethasone acetate-betamethason e sodium phosphate 3 mg injection (CELESTONE) Start: 11-24-2022 End: 11-24-2022 betamethasone acetate-betame thasone sodium phosphate 3 mg injection (CELESTONE) Biotin (20 sources) Start: 10-16-2019 End: 10-18-2019 Biotin Discontinued 1 {tbl} DAILY October 16, 2019 1:00am October 18, 2019 1:48pm Start: 10-16-2019 End: 10-18-2019 Biotin Discontinued 1 TABLET DAILY October 16, 2019 12:00am October 18, 2019 12:48pm take 1 tablet by rosalinda th once daily biotin 5 mg tab Take 5 mg [...] (4 sources) Sodium-Glucose Cotransporter 2 Inhibitor Start: 022 End: take 1 tablet by mouth once daily at breakfast empagliflozin (JARDIANCE) 10 mg tablet Take 1 tablet by mouth daily with breakfast. 90 tablet 3 05/18/2022 07/16/2022 Discontinued Comment on above: Take 1 tablet by rosalinda th daily with breakfast. famotidine 20 mg oral tablet (20 sources) Histamine-2 Receptor Antagonist Start: 024 End: 025 take 1 tablet [...] extended release oral tablet (20 sources) Start: 02-25-2021 End: 06-26-2024 take 1 tablet by mouth two times weekly Ferrous Sulfate (SLOW FE) 142 mg (45 mg iron) TbER Take 1 tablet by mouth two times a week. 02/25/2021 06/26/2024 Discontinued (Course of therapy completed) Comment on above: Take 1 tablet by rosalinda th two times a week. Food Supplemt, Lactose-Reduced (Ensure Enlive) 120 ML Liquid (2 sources) Start: 01-21-2018 End: 01-28-2018 take 1 mL by mouth four times daily Food Supplemt, Lactose-Reduced (Ensure Enlive) 120 ML Liquid Discontinued 120 mL PO 4 TIMES DAILY January 21, 2018 12:00am January 28, 2018 4:43pm Start: 01-21-2018 End: 01-28-2018 take 1 mL by mouth four times daily Food Supplemt, Lactose-Reduced (Ensure Enlive) 120 ML Liquid Discontinued 120 ML PO 4 TIMES DAILY January 20, 2018 11:00pm January 28, 2018 3:43pm Gatorade Sports Drink (1 source) Start: 06-21-2020 End: 07-30-2020 Gatorade Sports Drink Indications: Colon cancer screening Use as directed for Miralax / Gatorade Bowel Prep Kit 64 oz 06/21/2020 07/30/2020 Discontinued (Discontinued by Patient) hydrALAZINE hydrochloride 50 mg oral tablet (2 sources) Arteriolar Vasodilator Start: 01-28-2018 End: 02-02-2018 take 1 tablet by mouth three times daily Hydralazine 50 MG tablet Discontinued 50 mg PO THREE TIMES A DAY January 28, 2018 12:00am February 02, 2018 2:18pm 10 ml lidocaine hydrochloride 10 mg/ml injection (1 source) Antiarrhythmic, Amide Local Anesthetic Start: 11-24-2022 End: 11-24-2022 lidocaine (PF) 10 mg/mL (1 %) 0.5 mL injection (XYLOCAINE) Start: 11-24-2022 End: 11-24-2022 lidocaine (PF) 10 mg/mL (1 % ) 0.5 mL injection (XYLOCAINE) Lmefol [id number] (CEREFOLIN NAC, ALGAL OIL,) 6 mg-600 mg- 2 mg-90.314 mg tab (19 sources) Start: 02-18-2021 End: 09-02-2022 take 1 tablet by mouth once daily Lmefol [id number] (CEREFOLIN NAC, ALGAL OIL,) 6 mg-600 mg- 2 mg-90.314 mg tab Indications: 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 90 tablet 4 02/18/2021 09/02/2022 Discontinued Start: 02-18-2021 take 1 tablet by [facility] once daily Lmefol [id number] (CEREFOLIN NAC, ALGAL OIL,) 6 mg-600 mg- 2 mg-90.314 mg tab Indications: 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 90 tablet 4 02/18/2021 Active Comment on above: Take 1 tablet by rosalinda th once daily. pantoprazole 20 mg delayed release oral tablet [...] 10 mL injection (DEFINITY) polyethylene glycol 3350 23667 mg powder for oral solution (1 source) Osmotic Laxative Start: 0 End: 0 polyethylene glycol 3350 (MIRALAX, GLYCOLAX) 17 gram/dose powder Indications: Colon cancer screening Use as directed for Miralax / Gatorade Bowel Prep Kit 238 g 06/21/2020 07/30/2020 Discontinued (Discontinued by Patient) polyethylene glycol 3350 882649 mg / potassium chloride 2970 mg / sodium bicarbonate 6740 mg / sodium chloride 5860 mg / sodium sulfate 65425 mg powder for oral solution (1 source) [...] Comment on above: Take 1 capsule by [facility] at bedtime as needed for up to 30 days. Do not take with tramadol. traMADol hydrochloride 50 mg oral tablet (3 sources) Opioid Agonist Start: 03-08-20 End: 03-23-20 take 1 tablet by mouth twice daily as needed for pain traMADol (ULTRAM) 50 mg tablet Indications: Acute right-sided thoracic back pain Take 1 tablet by mouth twice daily as needed for pain for up to 15 days. Do not take with temazepam. 30 tablet 0 03/08/2023 03/23/2023 Start: 01-21-2018 End: 01-28-2018 take 2 tablets by mouth every six hours as needed for pain Tramadol 50 MG tablet Discontinued 100 mg PO EVERY 6 HOURS NEEDED as needed for Mod-Severe Pain () 08 01January 21, 2018 12:00am January 28, 2018 4:43pm Start: 01-21-2018 End: 01-28-2018 take 100 mg by mouth every six hours as needed Tramadol Discontinued 100 MG PO EVERY 6 HOURS NEEDED 08 01January 20, 2018 11:00pm January 28, 2018 3:43pm [...] with depressed mood] Onset: 4 01-04-2024 Chronic Cancer of breast (20 sources) History of malignant neoplasm of breast; Translations: [Personal history of malignant neoplasm of breast] Onset: 2 08-13-2020 Episodic Comment on above: R Breast CA s/p lump ectomy and radiation. Cardiac dysrhythmias (20 sources) Supraventricular tachycardia; Translations: [...] Coronary atherosclerosis; Translations: [Atherosclerotic heart disease of [place] coronary artery without angina pectoris] Onset: 3 [...] (HCC)] Onset: 4 Disorders of lipid metabolism (2 sources) Hyperlipidemia; Translations: [Hyperlipidemia, unspecified] 02-02-2018 Chronic Essential hypertension (20 sources) Essential (primary) hypertension; Translations: [Essential hypertension] Onset: 7 04-03-2021 Chronic Fracture of neck of femur (hip) (2 sources) Fracture of bone of hip region; Translations: [Stress fracture, right femur, initial encounter for fracture] 10-16-2019 Episodic Genitourinary symptoms and ill-defined conditions (6 sources) Retention of urine; Translations: [Retention of urine, unspecified] Episodic Headache; including migraine (20 sources) Headache; Translations: [Headache] Onset: 0 Resolved: 0 10-16-2019 Episodic Hypertension with complications and secondary hypertension (20 sources) Renovascular hypertension; Translations: [Hypertensive heart AND renal disease] Onset: 3 Resolved: 0 11-26-2021 Chronic Menopausal disorders (20 sources) Atrophy of vagina; Translations: [Postmenopausal atrophic vaginitis] 09-10-2015 Chronic Nausea and vomiting (2 sources) Nausea; Translations: [Nausea] 11-06-2023 Episodic Noninfectious gastroenteritis (20 sources) Collagenous colitis; Translations: [Collagenous colitis] Onset: 7 07-30-2017 Chronic Nonmalignant breast conditions (20 sources) Fibrocystic disease of breast; Translations: [Diffuse cystic mastopathy of unspecified breast] 04-10-2008 Chronic Nonspecific chest pain (20 sources) Chest pain, unspecified; Translations: [Chest pain] Onset: 7 Resolved: 0 11-06-2023 Episodic Nutritional deficiencies (20 sources) Vitamin D deficiency; [...] 0 12-22-2019 Chronic Other non-traumatic joint disorders (2 sources) Hip pain; Translations: [Pain in right hip] 02-02-2018 Episodic Other non-traumatic joint disorders (1 source) Pain of left wrist; Translations: [Pain in left wrist] 12-24-2020 Episodic Other screening for suspected conditions (not mental disorders or infectious disease) (20 sources) Inconclusive mammography finding; Translations: [Inconclusive mammogram] Onset: 8 Resolved: 8 Episodic Other upper respiratory disease (2 sources) Allergic rhinitis; Translations: [Allergic rhinitis, unspecified] 02-02-2018 [...] cystitis without hematuria] 07-03-2024 Episodic Viral infection (3 sources) Verruca vulgaris; Translations: [Viral wart, unspecified] [...] breast] Onset: 1 Resolved: 3 11-26-2021 Chronic Cardiac dysrhythmias (20 sources) Palpitations; Translations: [Palpitations] Onset: 3 Resolved: 8 Episodic Deficiency and other anemia (20 sources) Iron deficiency anemia; Translations: [Iron deficiency anemia, unspecified] Onset: 0 12-15-2019 Episodic Deficiency and other anemia (20 sources) Anemia; Translations: [Anemia, unspecified] Onset: 5 Resolved: 8 Episodic Fluid and electrolyte disorders (20 sources) Hyperkalemia; Translations: [Hyperkalemia] Onset: 0 Resolved: 0 12-15-2019 Episodic Neoplasms of unspecified nature or uncertain [...] imaging of breast] Onset: 8 05-09-2008 Episodic Other connective tissue disease (20 sources) [...] Test Name Value Interpretation Reference Range Facility Absolute lymphocyte countOrd ered By: ED PROVIDER on 04-09-2025 Lymphocytes Auto (Unsp spec) [#/Vol] 1.84 10*3/uL 0.83-4.51 [facility] Absolute neutrophil countOrd ered By: ED PROVIDER on 04-09-2025 Neutrophils (Bld) [#/Vol] 2.8 10*3/uL 2.0-7.7 [facility] Activated partial thrombopla stin time (aPTT) in platelet poor plasma by coagulation aOrdered By: Serge Mcmullen on 04-09-2025 aPTT Coag (PPP) [Time] 28.4 s 24.1-36.2 [facility] Anion gap in Serum or Plasma Ordered By: ED PROVIDER on 04-09-2025 Anion gap [Moles/Vol] 12 mmol/L 5-15 [facility] Automated lymphocyte count a s percentage of total leukocytesOrdered By: ED PROVIDER on 04-09-2025 Lymphocytes/100 WBC Auto (Unsp spec) 32.1 % 19-41 [facility] BUN/creatinine ratioOrdered By: ED PROVIDER on 04-09-2025 Urea nitrogen/Creatinine [Mass ratio] 20.3 mg/mg High 10-20 [facility] Basophil percentageOrdered B y: ED PROVIDER on 04-09-2025 Basophils/100 WBC (Bld) 0.5 % 0-1 [facility] Carbon dioxide, total [Moles /volume] in Central venous bloodOrdered By: ED PROVIDER on 04-09-2025 CO2 [Moles/Vol] 25.2 mmol/L 21.0-32.0 [facility] Chloride assayOrdered By: ED PROVIDER on 04-09-2025 Chloride [Moles/Vol] 101 mmol/L 98-108 [facility] [facility] Eosinophil percentageOrdered By: ED PROVIDER on 04-09-2025 Eosinophils/100 WBC (Bld) 5.2 % High 0-5 [facility] Erythrocyte distribution wid th ratioOrdered By: ED PROVIDER on 04-09-2025 Erythrocyte distribution width (RBC) [Ratio] 12.9 % 11.6-14.6 [facility] Erythrocyte distribution wid th standard deviationOrdered By: ED PROVIDER on 04-09-2025 Erythrocyte distribution width (RBC) [Ratio] 44.4 fl High 35.1-43.9 [facility] Glomerular filtration rate ( GFR) estimation/1.73 sq m using serum, plasma, or whole bOrdered By: ED PROVIDER on 04-09-2025 GFR/1.73 sq M.predicted among non-blacks MDRD (S/P/Bld) [Vol rate/Area] 32 mL/min/{1.73_m2} Low >60 [facility] Comment on above: mL/min/1.73m2 CKD-EP I Creatinine Equation (2020) Hematocrit Auto (Bld) [Volum e fraction]Ordered By: ED PROVIDER on 04-09-2025 Hematocrit (Bld) [Volume fraction] 37.2 % 37-47 [facility] Hemoglobin measurementOrdere d By: ED PROVIDER on 04-09-2025 Hemoglobin (Bld) [Mass/Vol] 12.4 g/dL 12.0-15.0 [facility] Immature granulocytes/100 WB C Auto (Bld)Ordered By: ED PROVIDER on 04-09-2025 Immature granulocytes/100 WBC (Bld) 0.200 % 0.0-0.9 [facility] Comment on above: IG% - Immature Granu locytes (promyelocytes, myelocytes and metamyelocytes) > 1% indicates that a LEFT SHIFT is Present. International normalized rat io (INR) calculationOrdered By: Serge Mcmullen on 04-09-2025 INR Coag (Bld) [Relative time] 1.0 {INR} [facility] MCV (mean corpuscular volume ) determinationOrdered By: ED PROVIDER on 04-09-2025 MCV (RBC) [Entitic vol] 94.2 fL 81-99 [facility] Mean corpuscular hemoglobin (MCH) determinationOrdered By: ED PROVIDER on 04-09-2025 MCH (RBC) [Entitic mass] 31.4 pg 27.0-32.0 [facility] Mean corpuscular hemoglobin concentration (MCHC) determinationOrdered By: ED PROVIDER on 04-09-2025 MCHC (RBC) [Mass/Vol] 33.3 g/dL 32-36 [facility] Mean platelet volume determi nationOrdered By: ED PROVIDER on 04-09-2025 Platelet mean volume (Bld) [Entitic vol] 9.7 fL 6.2-12.0 [facility] Monocyte percentageOrdered B y: ED PROVIDER on 04-09-2025 Monocytes/100 WBC (Bld) 12.7 % High 0-10 [facility] Natriuretic peptide.B prohor sarbjit N-Terminal [Mass/volume] in Serum or PlasmaOrdered By: Serge Mcmullen on 04-09-2025 Natriuretic peptide.B prohormone N-Terminal [Mass/Vol] 828 pg/mL <1800 [facility] Comment on above: Heart Failure Unlike ly: < 300 pg/mLHeart Failure Likely< 50 Years: > 450 pg/mL50-75 Years: > 900 pg/mL>75 Years: > 1800 pg/mL Neutrophil percentageOrdered By: ED PROVIDER on 04-09-2025 Neutrophils/100 WBC (Bld) 49.3 % 47-70 [facility] Nucleated red blood cell per centageOrdered By: ED PROVIDER on 04-09-2025 Nucleated RBC/100 WBC (Bld) [Ratio] 0 % 0-5 [facility] Platelet countOrdered By: ED PROVIDER on 04-09-2025 Platelets (Bld) [#/Vol] 216 10*3/uL 150-450 [facility] Potassium measurement (mass/ volume)Ordered By: ED PROVIDER on 04-09-2025 Potassium (Unsp spec) [Mass/Vol] 4.7 mmol/L 3.3-5.1 [facility] Prothrombin timeOrdered By: Serge Mcmullen on 04-09-2025 PT Coag (PPP) [Time] 13.6 s 11.7-14.9 [facility] RBC Auto (Bld) [#/Vol]Ordere d By: ED PROVIDER on 04-09-2025 RBC (Bld) [#/Vol] 3.95 10*6/uL Low 4.2-5.4 [facility] Serum creatinine measurement (mass/volume)Ordered By: ED PROVIDER on 04-09-2025 Creatinine [Mass/Vol] 1.54 mg/dL High 0.70-1.20 [facility] Serum glucose measurement (m ass/volume)Ordered By: ED PROVIDER on 04-09-2025 Glucose [Mass/Vol] 98 mg/dL 70-99 [facility] Serum or plasma calcium ashley urement (mass/volume)Ordered By: ED PROVIDER on 04-09-2025 Calcium [Mass/Vol] 9.5 mg/dL 7.6-11.0 [facility] Serum or plasma urea nitroge n measurement (mass/volume)Ordered By: ED PROVIDER on 04-09-2025 Urea nitrogen [Mass/Vol] 31 mg/dL High 4-19 [facility] Sodium levelOrdered By: CHARISSA LOVELACE on 04-09-2025 Sodium [Moles/Vol] 138 mmol/L 133-145 [facility] Troponin T.cardiac [Mass/vol ume] in Serum or Plasma by High sensitivity methodOrdered By: Serge Mcmullen on 04-09-2025 Troponin T.cardiac High sensitivity method [Mass/Vol] 86 ng/L High <14 [facility] Comment on above: Critical Result(s) C alled at: 2208 TO Fannie GONZALEZ by: Luke Qureshi. Results read back by same. Troponin T.cardiac High sensitivity method [Mass/Vol] 95 ng/L High <14 [facility] Comment on above: Critical Result(s) Kayla guerrero at: 2109 to [place] by: homa. Results read back by same. White blood cell (WBC) count Ordered By: ED PROVIDER on 04-09-2025 WBC (Bld) [#/Vol] 5.7 10*3/uL 4.4-11.0 [facility] 04-04-2025 CNPN Telephone (CARD CHF GEOFFREY) ZENAIDA EVANS ([id number]) 1935 F Date Time Provider Department 04/04/25 PAUL BAUTISTA CARD CHF GEOFFREY During your visit today, we recorded the following information about you: Divine Cleary 04/04/2025 8:49 AM Signed This form is used for MAIN CAMPUS APPOINTMENTS ONLY. Is this request for a [facility] PET scan appointment? Yes: Senior Oracle Developer: Divine Calabrese Who do we call to schedule this appointment? Patient Requesting Staff [id number] Area Code + Phone/Pager: N/A PET Orders [...] day/next day medically urgent scans please call [phone] to expedite Send requests to P CARDIAC PET Dee Isaac, PAULINA 04/04/2025 9:38 AM Signed Preliminary Approval for [...] to ordering physician and to P PET MEDICAL RECORD LIBRARIAN with recommendations. If all recommended orders are present route to P PET MEDICAL RECORD LIBRARIAN Eron Thakkar 04/05/2025 8:24 AM Signed 04/05 [...] Assessed Reason for Visit: Nm Pet Request [[id number]] Prescriptions as of 04/05/2025 - indapamide (LOZOL) [...] Visit (BRAVO C HF GEOFFREY) ZENAIDA EVANS ([id number]) 1935 F Date Time Provider Department 04/03/25 11:30 AM PAUL BAUTISTA CARD CHF GEOFFREY During your visit today, we recorded the following information about you: Pulse Respiration Blood pressure Weight 67/minute 15/minute 168/89 58.5 kg Height 1.689 m Paul Bautista MD 04/03/2025 12:45 PM Signed Heart and Vascular [facility] SECTION OF HEART FAILURE and CARDIAC TRANSPLANT MEDICINE OUTPATIENT VISIT DATE April 03, 2025 OUTPATIENT VISIT TYPE Established Patient PRIMARY CARE PHYSICIAN: Susannah Clemente [address] [place] [address] CHIEF COMPLAINT: Shortness of breath and chest [...] 03/13/2011 no retinopathy detected -both eyes - [facility] - return in 1 year - Dr. [...] CAROL, du (more content not included)... Normal [facility] ECHOon 04-03-2025 Echocardiography Echocardiography Rep ort: Transthoracic Echo [facility] J1-5 Date of service: 04/03/2025 10:26:57 AM BATH OPERATOR Ordering physician: PAUL BAUTISTA Exam indication: HF [...] * * * Final * * * [facility] [facility] : [id number] Normal [facility] CNPNon 04-02-2025 CNPN Telephone (INTMBR) ZENAIDA EVANS ([id number]) 1935 F Date Time Provider Department 04/02/25 SUSANNAH CLEMENTE INTRenny During your visit today, we recorded the following information about you: Tara Orona MA 04/02/2025 10:05 AM Signed Placed form in Dr. Clemente's in basket, please sign Susannah Clemente MD 04/05/2025 3:57 PM Signed This is an application to a wellness program at [facility]. I see that her Sales Record Clerk has ordered a stress test and I [...] Assessed Reason for Visit: Forms [913] Cmt: [facility] Prescriptions as of 04/05/2025 - indapamide (LOZOL) [...] malignant neopla (more content not included)... Normal [facility] CNOVon 03-27-2025 CNOV Office Visit (INTMBR ) ZENAIDA EVANS ([id number]) 1935 F Date Time Provider Department 03/27/25 3:50 PM SUSANNAH CLEMENTE During your visit today, we recorded the following information about you: Temperature Pulse Blood pressure Weight 97.6 degrees 62/minute 149/81 60.4 kg Height 1.676 m Susannah Clemente MD 03/27/2025 5:41 PM Signed Zenaida Evans is a 89 year old female here for a Medicare wellness visit. Recording using [employer] software for draft documentation of the visit was discussed with the patient/authorized labor union business representative; all questions welcomed and answered. Patient/authorized labor union business representative agreed to proceed Zenaida Evans is [...] and difficulty walking during a meeting in [facility]. A stress test was performed in July following this event, which showed her heart rate only reached 79% of the maximum, but no ischemia was detected. She has a follow-up appointment with her spice mixer, Dr. Bautista, next week and an echocardiogram [...] record. Dr. Bautista Cardiology Dr. Candace Manning [facility] Alicia Hylton, Breast Psychology Abena Wendi when daughter was sick [facility] GI Medical/Family history review Reviewed and updated problem list, medical/surgical/famil (more content not included)... Normal [facility] Basic metabolic 2000 panelon 02-01-2025 Anion gap [Moles/Vol] 7 mmol/L Low 8-15 [facility] Comment on above: Order Comment: Speci men Type: BLOOD SPECIMENOrdering Facility: [facility] Address: [address] [place] [address] Performed By: #### 2 4321-2 ####[facility] FAM SOLISCOLLINSBRANDON [id number] [place] [address] [place] Calcium [Mass/Vol] 9.9 mg/dL Normal 8.5-10.2 [facility] Comment on above: Order Comment: Speci men Type: BLOOD SPECIMENOrdering Facility: [facility] Address: [address] [place] [address] Performed By: #### 2 4321-2 ####[facility] MIAMINCLIA [id number] [place] [address] [place] Chloride [Moles/Vol] 104 mmol/L Normal 98-107 [facility] Comment on above: Order Comment: Speci men Type: BLOOD SPECIMENOrdering Facility: [facility] Address: [address] [place] [address] Performed By: #### 2 4321-2 ####[facility] [id number] [place] [address] [place] CO2 [Moles/Vol] 28 mmol/L Normal 22-30 [facility] Comment on above: Order Comment: Speci men Type: BLOOD SPECIMENOrdering Facility: [facility] Address: [address] [place] [address] Performed By: #### 2 4321-2 ####[facility] [id number] [place] [address] [place] Creatinine [Mass/Vol] 1.38 mg/dL High 0.58-0.96 [facility] Comment on above: Order Comment: Speci men Type: BLOOD SPECIMENOrdering Facility: [facility] Address: [address] [place] [address] Performed By: #### 2 4321-2 ####[facility] MIAMINCLIA [id number] [place] [address] [place] Creatinine and Glomerular filtration rate.predicted panel (S/P/Bld) 37 mL/min/1.73m??? Low >=60 [facility] Comment on above: Order Comment: Speci men Type: BLOOD SPECIMENOrdering Facility: [facility] Address: [address] [place] [address] Result Comment: Mraya mated Glomerular Filtration Rate (eGFR) is calculated [...] Performed By: #### 2 4321-2 ####[facility] MIAMIGEORGEScott [id number] [place] [address] [place] Glucose [Mass/Vol] 102 mg/dL High 74-99 [facility] Comment on above: Order Comment: Ledy pablo Type: BLOOD SPECIMENOrdering Facility: [facility] Address: [address] [place] [address] Result Comment: The [place] Diabetes Association (ADA) provides guidance for cutoff [...] Standards of Medical Care in Diabetes 2016, [place] Diabetes Association. Diabetes Care. 2016.39(Suppl 1). Performed By: #### 2 4321-2 ####[facility] [id number] [place] [address] [place] Potassium [Moles/Vol] 4.7 mmol/L Normal 3.7-5.1 [facility] Comment on above: Order Comment: Ledy pablo Type: BLOOD SPECIMENOrdering Facility: [facility] Address: [address] [place] [address] Performed By: #### 2 4321-2 ####[facility] MIAMIBRYANNA [id number] [place] [address] [place] Sodium [Moles/Vol] 139 mmol/L Normal 136-144 [facility] Comment on above: Order Comment: Speci men Type: BLOOD SPECIMENOrdering Facility: [facility] Address: [address] [place] [address] Performed By: #### 2 4321-2 ####[facility] PETERSBURGWGEORGELIA [id number] [place] [address] [place] Urea nitrogen [Mass/Vol] 43 mg/dL High 7-21 [facility] Comment on above: Order Comment: Speci men Type: BLOOD SPECIMENOrdering Facility: [facility] Address: [address] [place] [address] Performed By: #### 2 4321-2 ####[facility] MIAMINCLIA [id number] [place] [address] [place] CBC W Auto Differential pane l (Bld)on 02-01-2025 Basophils (Bld) [#/Vol] 10*3/uL Normal <0.11 [facility] Comment on above: Order Comment: Speci men Type: BLOOD SPECIMENOrdering Facility: [facility] Address: [address] [place] [address] Performed By: #### 5 7021-8 ####[facility] MIAMINCLIA [id number] [place] [address] [place] Basophils/100 WBC (Bld) 0.5 % Normal [facility] Comment on above: Order Comment: Speci men Type: BLOOD SPECIMENOrdering Facility: [facility] Address: [address] [place] [address] Performed By: #### 5 7021-8 ####[facility] MIAMINCLIA [id number] [place] [address] [place] Differential cell count method Nom (Bld) Auto Normal [facility] Comment on above: Order Comment: Speci men Type: BLOOD SPECIMENOrdering Facility: [facility] Address: [address] [place] [address] Performed By: #### 5 7021-8 ####[facility]AMIGEORGEASHLEY [facility] [id number] [place] [address] [place] Eosinophils (Bld) [#/Vol] 0.06 10*3/uL Normal <0.46 [facility] Comment on above: Order Comment: Speci men Type: BLOOD SPECIMENOrdering Facility: [facility] Address: [address] [place] [address] Performed By: #### 5 7021-8 ####[facility] [id number] [place] [address] [place] Eosinophils/100 WBC (Bld) 1.4 % Normal [facility] Comment on above: Order Comment: Speci men Type: BLOOD SPECIMENOrdering Facility: [facility] Address: [address] [place] [address] Performed By: #### 5 7021-8 ####[facility] [id number] [place] [address] [place] Erythrocyte distribution width (RBC) [Ratio] 12.8 % Normal 11.5-15.0 [facility] Comment on above: Order Comment: Speci men Type: BLOOD SPECIMENOrdering Facility: [facility] Address: [address] [place] [address] Performed By: #### 5 7021-8 ####[facility] [id number] [place] [address] [place] Hematocrit (Bld) [Volume fraction] 33.2 % Low 36.0-46.0 [facility] Comment on above: Order Comment: Speci men Type: BLOOD SPECIMENOrdering Facility: [facility] Address: [address] [place] [address] Performed By: #### 5 7021-8 ####[facility] HOSPITALLIA [id number] [place] [address] [place] Hemoglobin (Bld) [Mass/Vol] 11.0 g/dL Low 11.5-15.5 [facility] Comment on above: Order Comment: Speci men Type: BLOOD SPECIMENOrdering Facility: [facility] Address: [address] [place] [address] Performed By: #### 5 7021-8 ####[facility] HOSPITALLIA [id number] [place] [address] [place] Immature granulocytes (Bld) [#/Vol] 10*3/uL Normal <0.10 [facility] Comment on above: Order Comment: Speci men Type: BLOOD SPECIMENOrdering Facility: [facility] Address: [address] [place] [address] Performed By: #### 5 7021-8 ####[facility] [id number] [place] [address] [place] Immature granulocytes/100 WBC (Bld) 0.2 % Normal [facility] Comment on above: Order Comment: Speci men Type: BLOOD SPECIMENOrdering Facility: [facility] Address: [address] [place] [address] Performed By: #### 5 7021-8 ####[facility]DR[facility] HOSPITALLIA [id number] [place] [address] [place] Lymphocytes (Bld) [#/Vol] 1.82 10*3/uL Normal 1.00-4.00 [facility] Comment on above: Order Comment: Speci men Type: BLOOD SPECIMENOrdering Facility: [facility] Address: [address] [place] [address] Performed By: #### 5 7021-8 ####[facility] MIAMINCLIA [id number] [place] [address] [place] Lymphocytes/100 WBC (Bld) 42.4 % Normal [facility] Comment on above: Order Comment: Speci men Type: BLOOD SPECIMENOrdering Facility: [facility] Address: [address] [place] [address] Performed By: #### 5 7021-8 ####[facility]AMINCASH[facility] [id number] [place] [address] [place] MCH (RBC) [Entitic mass] 31.3 pg Normal 26.0-34.0 [facility] Comment on above: Order Comment: Speci men Type: BLOOD SPECIMENOrdering Facility: [facility] Address: [address] [place] [address] Performed By: #### 5 7021-8 ####[facility] [id number] [place] [address] [place] MCHC (RBC) [Mass/Vol] 33.1 g/dL Normal 30.5-36.0 [facility] Comment on above: Order Comment: Speci men Type: BLOOD SPECIMENOrdering Facility: [facility] Address: [address] [place] [address] Performed By: #### 5 7021-8 ####[facility] [id number] [place] [address] [place] MCV (RBC) [Entitic vol] 94.3 fL Normal 80.0-100.0 [facility] Comment on above: Order Comment: Speci men Type: BLOOD SPECIMENOrdering Facility: [facility] Address: [address] [place] [address] Performed By: #### 5 7021-8 ####[facility] [id number] [place] [address] [place] Monocytes (Bld) [#/Vol] 0.41 10*3/uL Normal <0.87 [facility] Comment on above: Order Comment: Speci men Type: BLOOD SPECIMENOrdering Facility: [facility] Address: [address] [place] [address] Performed By: #### 5 7021-8 ####[facility] WILLWGEORGELIA [id number] [place] [address] [place] Monocytes/100 WBC (Bld) 9.6 % Normal [facility] Comment on above: Order Comment: Speci men Type: BLOOD SPECIMENOrdering Facility: [facility] Address: [address] [place] [address] Performed By: #### 5 7021-8 ####[facility] MIAMINCLIA [id number] [place] [address] [place] Neutrophils (Bld) [#/Vol] 1.97 10*3/uL Normal 1.45-7.50 [facility] Comment on above: Order Comment: Speci men Type: BLOOD SPECIMENOrdering Facility: [facility] Address: [address] [place] [address] Performed By: #### 5 7021-8 ####[facility] HOSPITALLIA [id number] [place] [address] [place] Neutrophils/100 WBC (Bld) 45.9 % Normal [facility] Comment on above: Order Comment: Speci men Type: BLOOD SPECIMENOrdering Facility: [facility] Address: [address] [place] [address] Performed By: #### 5 7021-8 ####[facility] WILLCOLLINSNCLIA [id number] [place] [address] [place] Nucleated RBC (Bld) [#/Vol] 10*3/uL Normal <0.01 [facility] Comment on above: Order Comment: Speci men Type: BLOOD SPECIMENOrdering Facility: [facility] Address: [address] [place] [address] Performed By: #### 5 7021-8 ####[facility] PETERSBURGWNCLIA [id number] [place] [address] [place] Nucleated RBC/100 WBC (Bld) [Ratio] 0.0 /100 WBC Normal [facility] Comment on above: Order Comment: Speci men Type: BLOOD SPECIMENOrdering Facility: [facility] Address: [address] [place] [address] Performed By: #### 5 7021-8 ####[facility] WILLKAMALA [id number] [place] [address] [place] Platelet mean volume (Bld) [Entitic vol] 9.1 fL Normal 9.0-12.7 [facility] Comment on above: Order Comment: Speci men Type: BLOOD SPECIMENOrdering Facility: [facility] Address: [address] [place] [address] Performed By: #### 5 7021-8 ####[facility] MIAMIGEORGEScott [id number] [place] [address] [place] Platelets (Bld) [#/Vol] 150 10*3/uL Normal 150-400 [facility] Comment on above: Order Comment: Speci men Type: BLOOD SPECIMENOrdering Facility: [facility] Address: [address] [place] [address] Performed By: #### 5 7021-8 ####[facility] MIAMIGEORGETONYA [id number] [place] [address] [place] RBC (Bld) [#/Vol] 3.52 10*6/uL Low 3.90-5.20 [facility] Comment on above: Order Comment: Speci men Type: BLOOD SPECIMENOrdering Facility: [facility] Address: [address] [place] [address] Performed By: #### 5 7021-8 ####[facility] MIAMINCLIA [id number] [place] [address] [place] WBC (Bld) [#/Vol] 4.29 10*3/uL Normal 3.70-11.00 [facility] Comment on above: Order Comment: Speci men Type: BLOOD SPECIMENOrdering Facility: [facility] Address: [address] [place] [address] Performed By: #### 5 7021-8 ####[facility] CENTERLIScott [id number] [address] [facility] CNPNon 01-15-2025 CNPN Telephone (INTMBR) ZENAIDA EVANS ([id number]) 1935 F Date Time Provider Department 01/15/25 SUSANNAH CLEMENTE INTMBRenny During your visit today, we recorded the following information about you: Juliet Ayala 01/15/2025 11:06 AM Signed Tommy is calling Susannah Clemente MD today to request Orders (Medical Massage) Patient has been identified by name and birthdate. 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 Normal [facility] CBC W Auto Differential pane l (Bld)on 11-17-2024 Basophils (Bld) [#/Vol] 10*3/uL Normal <0.11 [facility] Comment on above: Order Comment: Speci men Type: BLOOD SPECIMENOrdering Facility: [facility] Address: [address] [place] [address] Performed By: #### 5 7021-8 ####[facility] [id number] [place] [address] [place] Basophils/100 WBC (Bld) 0.5 % Normal [facility] Comment on above: Order Comment: Speci men Type: BLOOD SPECIMENOrdering Facility: [facility] Address: [address] [place] [address] Performed By: #### 5 7021-8 ####[facility] [id number] [place] [address] [place] Differential cell count method Nom (Bld) Auto Normal [facility] Comment on above: Order Comment: Speci men Type: BLOOD SPECIMENOrdering Facility: [facility] Address: [address] [place] [address] Performed By: #### 5 7021-8 ####[facility] BEACHA [id number] [place] [address] [place] Eosinophils (Bld) [#/Vol] 0.05 10*3/uL Normal <0.46 [facility] Comment on above: Order Comment: Speci men Type: BLOOD SPECIMENOrdering Facility: [facility] Address: [address] [place] [address] Performed By: #### 5 7021-8 ####[facility] BRIANNA [id number] [place] [address] [place] Eosinophils/100 WBC (Bld) 1.2 % Normal [facility] Comment on above: Order Comment: Speci men Type: BLOOD SPECIMENOrdering Facility: [facility] Address: [address] [place] [address] Performed By: #### 5 7021-8 ####[facility] WILLCOLLINSNCTONYScott [id number] [place] [address] [place] Erythrocyte distribution width (RBC) [Ratio] 13.1 % Normal 11.5-15.0 [facility] Comment on above: Order Comment: Speci men Type: BLOOD SPECIMENOrdering Facility: [facility] Address: [address] [place] [address] Performed By: #### 5 7021-8 ####[facility] MIAMINCTONYA [id number] [place] [address] [place] Hematocrit (Bld) [Volume fraction] 33.8 % Low 36.0-46.0 [facility] Comment on above: Order Comment: Speci men Type: BLOOD SPECIMENOrdering Facility: [facility] Address: [address] [place] [address] Performed By: #### 5 7021-8 ####[facility] MIAMINCLIA [id number] [place] [address] [place] Hemoglobin (Bld) [Mass/Vol] 11.4 g/dL Low 11.5-15.5 [facility] Comment on above: Order Comment: Speci men Type: BLOOD SPECIMENOrdering Facility: [facility] Address: [address] [place] [address] Performed By: #### 5 7021-8 ####[facility] PETERSBURGWNCLIA [id number] [place] [address] [place] Immature granulocytes (Bld) [#/Vol] 10*3/uL Normal <0.10 [facility] Comment on above: Order Comment: Speci men Type: BLOOD SPECIMENOrdering Facility: [facility] Address: [address] [place] [address] Performed By: #### 5 7021-8 ####[facility] HOSPITALLIA [id number] [place] [address] [place] Immature granulocytes/100 WBC (Bld) 0.2 % Normal [facility] Comment on above: Order Comment: Speci men Type: BLOOD SPECIMENOrdering Facility: [facility] Address: [address] [place] [address] Performed By: #### 5 7021-8 ####[facility] [id number] [place] [address] [place] Lymphocytes (Bld) [#/Vol] 1.92 10*3/uL Normal 1.00-4.00 [facility] Comment on above: Order Comment: Speci men Type: BLOOD SPECIMENOrdering Facility: [facility] Address: [address] [place] [address] Performed By: #### 5 7021-8 ####[facility] [id number] [place] [address] [place] Lymphocytes/100 WBC (Bld) 46.4 % Normal [facility] Comment on above: Order Comment: Speci men Type: BLOOD SPECIMENOrdering Facility: [facility] Address: [address] [place] [address] Performed By: #### 5 7021-8 ####[facility]DREN[facility] HOSPITALLI [id number] [place] [address] [place] MCH (RBC) [Entitic mass] 32.0 pg Normal 26.0-34.0 [facility] Comment on above: Order Comment: Speci men Type: BLOOD SPECIMENOrdering Facility: [facility] Address: [address] [place] [address] Performed By: #### 5 7021-8 ####[facility] [id number] [place] [address] [place] MCHC (RBC) [Mass/Vol] 33.7 g/dL Normal 30.5-36.0 [facility] Comment on above: Order Comment: Speci men Type: BLOOD SPECIMENOrdering Facility: [facility] Address: [address] [place] [address] Performed By: #### 5 7021-8 ####[facility] [id number] [place] [address] [place] MCV (RBC) [Entitic vol] 94.9 fL Normal 80.0-100.0 [facility] Comment on above: Order Comment: Speci men Type: BLOOD SPECIMENOrdering Facility: [facility] Address: [address] [place] [address] Performed By: #### 5 7021-8 ####[facility] [id number] [place] [address] [place] Monocytes (Bld) [#/Vol] 0.52 10*3/uL Normal <0.87 [facility] Comment on above: Order Comment: Speci men Type: BLOOD SPECIMENOrdering Facility: [facility] Address: [address] [place] [address] Performed By: #### 5 7021-8 ####[facility] [id number] [address] [place] Monocytes/100 WBC (Bld) 12.6 % Normal [facility] Comment on above: Order Comment: Speci men Type: BLOOD SPECIMENOrdering Facility: [facility] Address: [address] [place] [address] Performed By: #### 5 7021-8 ####[facility] MILLMOSHEWNCLIA [id number] [place] [address] [place] Neutrophils (Bld) [#/Vol] 1.62 10*3/uL Normal 1.45-7.50 [facility] Comment on above: Order Comment: Speci men Type: BLOOD SPECIMENOrdering Facility: [facility] Address: [address] [place] [address] Performed By: #### 5 7021-8 ####[facility] MILLTOWGEORGELIA [id number] [place] [address] [place] Neutrophils/100 WBC (Bld) 39.1 % Normal [facility] Comment on above: Order Comment: Speci men Type: BLOOD SPECIMENOrdering Facility: [facility] Address: [address] [place] [address] Performed By: #### 5 7021-8 ####[facility] YESSICAWNCLIA [id number] [place] [address] [place] Nucleated RBC (Bld) [#/Vol] 10*3/uL Normal <0.01 [facility] Comment on above: Order Comment: Speci men Type: BLOOD SPECIMENOrdering Facility: [facility] Address: [address] [place] [address] Performed By: #### 5 7021-8 ####[facility] MILLTOWNCLIA [id number] [place] [address] [place] Nucleated RBC/100 WBC (Bld) [Ratio] 0.0 /100 WBC Normal [facility] Comment on above: Order Comment: Speci men Type: BLOOD SPECIMENOrdering Facility: [facility] Address: [address] [place] [address] Performed By: #### 5 7021-8 ####[facility] WILLTOWNCLIA [id number] [place] [address] [place] Platelet mean volume (Bld) [Entitic vol] 9.4 fL Normal 9.0-12.7 [facility] Comment on above: Order Comment: Speci men Type: BLOOD SPECIMENOrdering Facility: [facility] Address: [address] [place] [address] Performed By: #### 5 7021-8 ####[facility] WILLCOLLINSGEORGELIA [id number] [place] [address] [place] Platelets (Bld) [#/Vol] 159 10*3/uL Normal 150-400 [facility] Comment on above: Order Comment: Speci men Type: BLOOD SPECIMENOrdering Facility: [facility] Address: [address] [place] [address] Performed By: #### 5 7021-8 ####[facility] HOSPITALTONYA [id number] [place] [address] [place] RBC (Bld) [#/Vol] 3.56 10*6/uL Low 3.90-5.20 [facility] Comment on above: Order Comment: Speci men Type: BLOOD SPECIMENOrdering Facility: [facility] Address: [address] [place] [address] Performed By: #### 5 7021-8 ####[facility] HOSPITALLIA [id number] [place] [address] [place] WBC (Bld) [#/Vol] 4.14 10*3/uL Normal 3.70-11.00 [facility] Comment on above: Order Comment: Speci men Type: BLOOD SPECIMENOrdering Facility: [facility] Address: [address] [place] [address] Performed By: #### 5 7021-8 ####[facility] MIAMINCLIA [id number] [address] [place] Laurita 11-15-2024 CNPN Telephone (INTMBR) ZENAIDA EVANS ([id number]) 1935 F Date Time Provider Department 11/15/24 [...] Message can be given upon returned call Johnson Mara Maciel 11/16/2024 9:22 AM Signed Patient [...] BLOOD COUNT AND DIFFERENTIAL [SQCBCDIF] Order #: [id number] FUTURE Prescriptions as of 11/16/2024 - labetalol [...] 12/02/2011 09/19/20 (more content not included)... Normal [facility] CNPNon 10-24-2024 CNPN Telephone (FAMPTW) ZENAIDA EVANS ([id number]) 1935 F Date Time Provider Department 10/24/24 SUSANNAH CLEMENTE FAMPTW During your visit today, we recorded the [...] calling: self Call patient at: at home [phone] (home) verified as best number per patient Was an appointment scheduled: No Closing statement: Results or non-symptom based questions: Thank you for calling [facility], your call will be returned within the next business day. Johana Victro [facility] Abena Aviles, RN 10/24/2024 11:18 AM Signed [...] 06/18/2010 09/19/2020 (more content not included)... Normal [facility] SURGICAL PATHOLOGYOrdered By : Helga German on 07-28-2024 Case Report Surgical Pathology R eport Case: [id number] Authorizing Provider: Michelle Choudhary MD Collected: 07/26/2024 02:14 PM Ordering Location: Dermatology Received: 07/26/2024 07:02 PM Pathologist: Helga German MD Specimen: Skin, Shave Biopsy, A. right cheek, r/[facility] Work Phone: Clinical History o2bvrJTjEEVrj5rqNCLk bGFuZzEw GoNyMpSiIqn2NZScbbC1Mgh0UUXk FJjlwD8mQFTeOLnaN7bpylVjqENq DPLsCFr9xO2zyAdhlC2zVaOoCnHz MCBIeCBvZiBOTVNDXHBhciB9 [facility] Work Phone: FINAL DIAGNOSIS x3hsvDVxFBLnwJSeDTtb MlxhbnNp DOXaqLZhA1PqkxtgETemQM4rPA9d cLdhpBWqjHVkPJNzZwJda4txf095 nYVrz4gsUGQNkxuifGt6fByzV63x j2T7BasaJ54hpZFmYSD5IBWeNILk jNZyFCRsAIV0VFTdwOTcD6xvDBKu BO9hgljdOYkyCUdsEUUrsAK0TJIl iHHkA4JnAIZhRZozLBPqdox8AvHj Al8qnOFrvFqcZYzpCTOiHIKwTQqn HMGnSuNvIW1yU6nrzrisrgvvgBUe M3ubOMkcNRGzBPMsNWKce3BocQmg wZOySG7jN3Mza2PwkSIkJgMeHSTq iJ9jdZQhNEPtvrlvATSrPOQZQ84G QzZoRN1oTZ4zZUYnTNc6MnVUNHjx YXJ9 [facility] Work Phone: Gross Description x3wugWOrWCCogVGFXHX4 QJScUD5o wNwkfHm4cMpeXWLtqoU1vXPgGZuq a8fhNJJ4j0idzoIDNyhiLASiLD9r TKyzJNXoXX3oAtVqDKCpOtLrKRId qTVwgzVlAyIkUFYrnKXfvVA1LVJr UK1ipvyiIZsvMHmwNSNnjzN8YOVb mEIrK0JiZFAxMZ9nkvbcEOD2MPZS BxsrUp8uzGGpkJhuVaBrGnMdQAHq JYMsZJAjl8kdbmREoxvrvPa1cE7Y JTKmD1QbFB9Vp6phTNLucCXfPOV3 SPyqk3ywYHdxKXX2FYBxWEOwOYHm LJ0KGqNmXNr5TNl0PRgkEnD3ZXs3 WGPWLYMbAHN0VVv8JxTsHAx2RNhx XFxuaCBcXHQgMSBcXGZsIFxcbmN9 m9voCTLskOUuSIG0JZryq5maBKcl MMK9UVXaViYmSNJfHJ6CMaWfMRp0 ZUc4FTgyLcP8WSr5IIRAUtVmMsUv BBm6LRV8WWZqYVr3IFg2TOeWZaUq Ipw6SwX2YoX9UuG1KGZtVOVoCEYe VmGjFGBaPCKoJIttnOBnGF4bcCxo GXFbZG4QRWWqEMryBKNyRmGlFS6v U2goxrrpJ9zoarNnTnaitTS2TZn8 ipOpJYAycnOKUmzlAPRfXH6BBRNt FEceQJa6zxYrWTYgQeYeZUEnR98u c8PUd5UrDB3FVQz4dvVrblWATlur hhQdJXHjX2RclyYgXFjeQPUtoj6e bUnsSLRxZSU6sCDdCLOjWJsyIQ89 goIqQzU2ZY8xYTDbOuTtv1pesoZe A2knDUmccNbyItC5qfOuXlAddNWb MzTwqKJ7MVImVTJuqR5nG8KsR3sr PL5qlXNjg0MuaZjwaoKrPsAOy4Xf zDa1EBI7Il9wwGLtQFZbpkQ6r59h Y6Xky1S0fIYoMhZxaXRjVF8ZTHAm usRJEllGUvJKR2IzAyLaWVmkATTz MjQgODozNiBQTVxwYXIgDQpccGFy RT0WNBWaZfJxLYZsN4fsUOFtUL4O P8Jjo1AqCFdmmMqjUIVsq90ptFSu Yd8llOGcDNL6ELTfNDTqkYSlNINS mWnogETnKJo9AJEbKSXvwZmxFME3 OC4uIFIcRYYicJSjJDhyT7maRZVk LYGLAvaorPrhExTunZOgVwS5NJJg fBJvJKN9TP1cnNbsKCRsP6MlS4Mj nkU0KHNwgoDXXbmgXYDqPF4SBOLf MjIgDQp9 [facility] Work Phone: Performing Lab c4itpFVkEGNwrMGnXiDn MDAwXGFu q6xiEWBfjZMeSeHgIcBlWkJrYjgs jEYfZSTjRlMge3ytn216mSTtf9dt EQDsNuR1eWRyACOlcEWaF085RKXy XGbyi2qty5LjAVVxiPNfx2H4VVXT puiapNx3lXifC60qd0R0XwxwV4ei WXFxVZZtN7BrPC6qSDZeHjk5OQM6 BTT8ZTHvKMOdI8VfZB0uODCqjHSs AJg7j7vqqRkmUCSnPNG3w6nzWNac znOoDT1jju6dsKy3n9ulsgDnKARf LQVlgGGLQDLcQ1EuqJgbWq2jfFp9 lMykXqmiVLQ4Yth8OZ4tpc93yeg3 eKzsGVUvmbsxFaE4UPqpVIWxnakj DAe9KAhkUOWtkGY6WQAclFNxE5Zj PNiiGF4hrdh0SQQ8XMybYWMzFkA1 EQTrpPDkIVBfkIubFAedp980HHO5 WsPtGD8tW0Jpm7O2dE4oqIHuQHZf pXTyNsLoBNThwr1hrISbSYrde4Fm ZIG0foI1pPOivAPkOWTpZZ38Skzf e4OlByqhk6TbW93nwSF8HSuxm5cs FR7qGxS2ltRoZGbly0hiqB9rAsJ9 DOckXV6hIX3qVGJcqI1kljewZBZp KtVqhmtzNOPjmFgiztElJk1fbBmv KNG0TUckW1vsbC5kGuL8UClmK4pa cO2iMJj4LLyoiNG2VJPpsS8dHC3u kflnn9bqGGncZZocEUBmxqD1ewEw EHRgoLLrW7PqyQ5oLDEkZL2agtqo x3toGZS8WOyfYOXsVIG5WjZfJAFn f2Bllcy6PvHni4WumDFnKIidU14m z285KKJxvzFuD6ydoCThsladjYYc ufhvBVchqeA5CYPwCUMrBUsiNKOd XGZzMjBcbGFuZzEwMzNcaGljaFxm VHpwQmXfPOYhRQzvP3tdBmLcXzWu XNDSzGLfhj2pwXezGVhsyISgxXYm kAS0jI7eTMCmszSran3dFMLwfUMF oSJ3XHarxyEtN1dinafkLRF3JGNm URI2R0vkTZDNwlRyRRTbTRCmoREi LAWWXHM5RBA5VUDfCZWDSBRjRJM7 RKG8GJGiZWSrwTWsGWNomgxdCWNq TAFgOLonXXHxSXOtFtJbjHmgeE0v ZxCcZeMeIJldBA0jJSHvY2fbqVLv YVTzVASbT3nfOeYfoY3rvHriVJut ZjJcZnMyMFxsdHJjaCBMYWJvcmF0 m5U4ACixnVQtpoegKAncnqSeVIyx iqdfQHEvDUnpV0yoYaArOBUluAnx RCawv5NmQHXePXWjZdNjNIbtDLT8 x6X4ZJytmQNnrtNQKuTAAE8vaZAb ikaxEI6GIdiujHWdxuhrALwkbdCw EBqlukumJEAaHNrtV0ugXkNdTWZs gOglNZiyx9QoTHVfERDrHsBopKWv fQ== [facility] Work Phone: [facility] Work Phone: STRESS ECHO TREADMILLon 10-1 STRESS ECHO TREADMILL Stress Slot Key Person Report: Stress Echo [facility] Date of service: 07/27/2024 10:26:06 AM BATH OPERATOR Supervising physician: Brandyn Moore DO PATIENT: Name: MRS. ZENAIDA EVANS Age: 89 years Gender: F The supervising physician was in the department and immediately available. Final Echocardiography Report: Stress [facility] Date of service: 07/27/2024 10:26:06 AM BATH OPERATOR Ordering physician: SUSANNAH CLEMENTE Indication: Shortness of [...] 04/02/2023. Final Stress ECG Report: Stress [facility] Date of service: 07/27/2024 10:26:06 AM BATH OPERATOR Ordering physician: SUSANNAH CLEMENTE email campaign specialist: Thomas Escobar Interpreting physician: Brandyn Moore [...] Michael pr (more content not included)... Normal [facility] CNOVon 07-26-2024 CNOV Office Visit (DERMMN ) CRISTINAZENAIDA Cleveland ([id number]) 1935 F Date Time Provider Department 07/26/24 [...] and AI Collagenous colitis 07/30/2017 On biopsy 2013. Diarrhea hx of colitis Diffuse cystic mastopathy Dyspareunia Essential hypertension H/O complete eye exam 03/13/2011 no retinopathy detected -both eyes - [facility] - return in 1 year - Dr. [...] Abs Lymph 1.00 - 4.00 k/uL 2.24 Medina% % 14.7 Abs [place]ina <0.87 k/uL 0.83 Eosin% % 3.0 Abs [...] NAD, pleasant (more content not included)... Normal [facility] SURGICAL PATHOLOGYon CASE REPORT Normal [facility] Comment on above: Order Comment: Speci men Type: TISSUE SPECIMENOrdering Facility: [facility] Address: [address] [place] [address] Result Comment: Surg ica Pathology Report Case: [id number] Authorizing Provider: Michelle Choudhary MD Collected: 07/26/2024 02:14 PM Ordering Location: Dermatology Received: 07/26/2024 07:02 PM Pathologist: Helga German MD Specimen: Skin, Shave Biopsy, A. right cheek, r/o NMSC Performed By: #### S ####[facility] LABCLIA [id number] [place] [address] [place] CLINICAL HISTORY Hx of NMSC Normal [facility] Comment on above: Order Comment: Speci men Type: TISSUE SPECIMENOrdering Facility: [facility] Address: [address] [place] [address] Performed By: #### S ####[facility] LABCLIA [id number] [place] [address] [place] FINAL DIAGNOSIS Normal [facility] Comment on above: Order Comment: Speci men Type: TISSUE SPECIMENOrdering Facility: [facility] Address: [address] [place] [address] Result Comment: A. S kin, right cheek, shave biopsy: - Seborrheic keratosis. MPP/NJV 07/27/24 10:52 AM Performed By: #### S ####[facility] LABCLIA [id number] [place] [address] [place] FINAL PERFORMING LAB Normal [facility] Comment on above: Order Comment: Speci men Type: TISSUE SPECIMENOrdering Facility: [facility] Address: [address] [place] [address] Result Comment: Diag nostic interpretation performed at [facility], [address] [place] [address] CLIA# [id number] Roller Coaster Operator: Nino Leiva M.D. Performed By: #### S ####[facility] LABIA [id number] [place] [address] [place] GROSS DESCRIPTION Normal [facility] Comment on above: Order Comment: Speci men Type: TISSUE SPECIMENOrdering Facility: [facility] Address: [address] [place] [address] Result Comment: A. S kin, Shave Biopsy Received in formalin are three segments of mc, soft skin aggregating to 1.2 x 0.6 x < 0.1 cm. Specimen is sectioned. Totally submitted in two cassettes. [facility] July 26, 2024 8:36 PM Gross examination performed at [facility], [address] [place] [address] Performed By: #### S ####[facility] NORTHIA [id number] [place] [address] [place] Bacteria Ur Culton [...] , Intermediate >32 , Resistant >64 Abnormal [facility] Comment on above: Performed By: #### 6 30-4 ####[facility] LABCLIA [id number] [place] [id number] [place] CNOVon 07-17-2024 CNOV Office Visit (UCWSTR ) ZENAIDA EVANS ([id number]) 1935 F Date Time Provider Department 07/17/24 10:30 AM DOMINGUEZ HARKINS [facility] During your visit today, [...] of urination [R39.15] Order(s):UA DIP, URINE (POC) [[id number]] Order #: [id number]. #:[id number] URINE CULTURE [SQURCUL] Order #: [id number]. #:[id number] cephALEXin (KEFLEX) 500 mg capsuleTake (more content not included)... Normal [facility] UA DIP, URINE (POC)on 2023 BILIRUBIN UA (POCT) Small Abnormal Negative [facility] CLARITY UA (POCT) Clear [facility] COLOR UA (POCT) [facility] GLUCOSE UA (POCT) 100 mg/dL Abnormal Negative [facility] Hemoglobin Ql (U) Trace-intact Abnormal Negative [facility] Interpretation and review of laboratory results Abnormal [facility] KETONE UA (POCT) Negative Negative mg/dL [facility] LEUKOCYTES UA (POCT) Large Abnormal Negative [facility] NITRITE UA (POCT) Positive Abnormal Negative [facility] PH UA (POCT) 7.0 4.5 - 8.0 [facility] Protein Ql (U) 100 mg/dL Abnormal Negative [facility] SPECIFIC GRAVITY UA (POCT) 1.020 1.005 - 1.030 [facility] UROBILINOGEN UA (POCT) 2.0 Abnormal Ophelia l E.U./dL [facility] Location:[address], [place], [address] [facility] POINT OF CARE [facility] XR CHEST 2V FRONTAL/LATon XR CHEST [...] spine. Scoliosis. IMPRESSION: No acute radiographic abnormality. Commercial Manager: [facility] Transcribe Date/Time: Jul 14 2024 2:10P Dictated by : MANASA CARTER MD This examination was interpreted and the report reviewed and electronically signed by: MANASA CARTER MD on Jul 14 2024 2:11PM EST [id number] Normal [facility] XR Chest PA and Lateralon IMPRESSION: No acute radiographic abnormality. Commercial Manager: [facility] Transcribe Date/Time: Jul 14 2024 2:10P Dictated [...] the spine. Scoliosis. DIVISION OF RADIOLOGY Provider, [facility] - 07/14/2024 * * *Final Report* [...] Scoliosis. IMPRESSION IMPRESSION: No acute radiographic abnormality. Commercial Manager: [facility] Transcribe Date/Time: Jul 14 2024 2:10P Dictated by : MANASA CARTER MD This examination was interpreted and the report reviewed and electronically signed by: MANASA CARTER MD on Jul 14 2024 2:11PM EST [facility] Radiology Study observation (narrative) [facility] XR Chest PA and LateralOrder ed By: [facility] Provider on 07-14-2024 [facility] CNOVon 07-13-2024 CNOV Office Visit (FAMPBR ) BRODERICK EVANSINE Cristofer ([id number]) 1935 F Date Time Provider Department 07/13/24 2:40 PM ERWIN ROSALESPBRenny During your visit today, we recorded the following information about you: Temperature Pulse Respiration Blood pressure 98.2 degrees 63/minute 20/minute 165/82 Weight 62.3 kg Erwin Rosales MD 07/13/2024 3:01 PM Signed This note was created using [employer]. 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 Normal [facility] CNOVon 07-03-2024 CNOV Office Visit (INTMBR ) ZENAIDA EVANS ([id number]) 1935 F Date Time Provider Department 07/03/24 10:20 AM SUSANNAH CLEMENTE INTMBRenny During your visit today, we recorded the following information about you: Temperature Pulse Blood pressure Weight 97.9 degrees 74/minute 136/72 61.3 kg Susannah Clemente MD 07/03/2024 11:03 AM Signed Note created with [employer]: HPI The patient is a 89-year-old [...] 4.00 k/uL 1.67 1.87 1.88 1.62 2.24 [place]% % 10.5 11.3 13.1 11.6 14.7 Abs [place] <0.87 k/uL 0.46 0.50 0.50 0.53 0.83 [...] infections. Pres (more content not included)... Normal [facility] CNPNon 07-03-2024 CNPN Telephone (FAMPBR) ZENAIDA EVANS ([id number]) 1935 F Date Time Provider Department 07/03/24 SUSANNAH CLEMENTE FAMPBR During your visit today, we recorded the following information about you: Phyllis Crook 07/03/2024 11:55 AM Signed Patient wanted me to contact you, nothing available for medicare wellness in 4 months, I offered to see Ruby, pt declined, next available was february. Patient wanted me to message you to see if February was okay for her to be seen. Susannah Clemente MD 07/03/2024 2:51 PM Signed Continues [facility] hospital follow-up and 1 day release on [...] Fully Assessed Reason for Visit: Patient Question [5665] Cmt: Nothing was available for medicare wellness [...] treated [E55.9] 08/18/2007 Right Breast Cancer [C50.919] 10/13/201112/17 (more content not included)... Normal [facility] ECG COMPLETEon 07-03-2024 Atrial Rate 68 BPM [facility] Calculated P Carson 65 degrees [facility] Calculated R [place] 46 degrees [facility] Calculated T [place] 62 degrees [facility] P-R Interval 172 ms [facility] QRS Duration 80 ms [facility] QT Interval 402 ms [facility] QTC Calculation (Bazett) 427 ms [facility] Ventricular Rate 68 BPM [facility] NORMAL SINUS RHYTHM POSSIBLE LEFT ATRIAL ENLARGEMENT BORDERLINE ECG Confirmed by JOSÉ MIGUEL PEREZ MD ([id number]) on 07/03/2024 3:08:37 PM [facility] NAME : ZENAIDA EVANS PID : [id number] : 1935 Gender : Female Race : ORD : Procedure Date : Jul 03 2024 10:54:36 Edit Date : Jul 03 2024 15:08:42 Diagnosis: NORMAL SINUS RHYTHM POSSIBLE LEFT ATRIAL ENLARGEMENT BORDERLINE ECG Confirmed by JOSÉ MIGUEL PEREZ MD ([id number]) on 07/03/2024 3:08:37 PM Test Reason : Location : 156 : [facility] Overread By : JOSÉ MIGUEL PEREZ MD Edited By : JOSÉ MIGUEL PEREZ MD Referred By : DR CLEMENTE, Acquired by : , [facility] [id number] 07-03-2024 ECG01 Ventricular Rate : 6 8 BPM Atrial Rate : 68 BPM P-R Interval : 172 ms QRS Duration : 80 ms Q-T Interval : 402 ms QTC Calculation(Bazett) : 427 ms Calculated P Carson : 65 degrees Calculated R Carson : 46 degrees Calculated T Carson : 62 degrees NORMAL SINUS RHYTHM POSSIBLE LEFT ATRIAL ENLARGEMENT BORDERLINE ECG Confirmed by JOSÉ MIGUEL PEREZ MD ([id number]) on 07/03/2024 3:08:37 PM NAME : ZENAIDA EVANS PID : [id number] : 1935 Gender : Female Race : ORD : Procedure Date : Jul 03 2024 10:54:36 Edit Date : Jul 03 2024 15:08:42 Diagnosis: NORMAL SINUS RHYTHM POSSIBLE LEFT ATRIAL ENLARGEMENT BORDERLINE ECG Confirmed by JOSÉ MIGUEL PEREZ MD ([id number]) on 07/03/2024 3:08:37 PM Test Reason : Location : 156 : [facility] Overread By : JOSÉ MIGUEL PEREZ MD Edited By : JOSÉ MIGUEL PEREZ MD Referred By : DR CLEMENTE, Acquired by : SS, Normal [facility] Bacteria Ur Culton 4 Bacteria identified [...] , Intermediate >32 , Resistant >64 Abnormal [facility] Comment on above: Performed By: #### 6 30-4 ####[facility] LABCLIA [id number] [address] CNOVon 06-26-2024 CNOV Office Visit (UCWSTR ) ZENAIDA EVANS ([id number]) 1935 F Date Time Provider Department 06/26/24 4:00 PM EMILEE CRUMP [facility] During your visit today, we recorded the following information about you: Temperature Pulse Respiration Blood pressure 97.4 degrees 78/minute 16/minute 132/78 Weight 60.8 kg Emilee Crump, MAJOR [employer]SEM[employer].POWER SYSTEM ENGINEER 06/26/2024 3:56 PM Signed Urinary Problem-When to [...] treated. A physician, nurse practitioner or physician retail store assistant may treat with a short course [...] young women if symptoms resolve. Emilee Crump, MAJOR ASSEMBLY [employer]EM[employer].POWER SYSTEM ENGINEER 06/26/2024 4:09 PM Signed Patient presents with: [...] Diagnosis:Urinary frequency [R35.0] Order(s):UA DIP, URINE (POC) [[id number]] Order #: [id number] (more content not included)... Normal [facility] UA DIP, URINE (POC)on 2023 BILIRUBIN UA (POCT) Negative Negative [facility] CLARITY UA (POCT) Cloudy [facility] COLOR UA (POCT) Dark yellow [facility] GLUCOSE UA (POCT) 250 mg/dL Abnormal Negative [facility] Hemoglobin Ql (U) Moderate Abnormal Negative [facility] Interpretation and review of laboratory results Abnormal [facility] KETONE UA (POCT) Negative Negative mg/dL [facility] LEUKOCYTES UA (POCT) Small Abnormal Negative [facility] NITRITE UA (POCT) Positive Abnormal Negative [facility] PH UA (POCT) 7.0 4.5 - 8.0 [facility] Protein Ql (U) 30 mg/dL Abnormal Negative [facility] SPECIFIC GRAVITY UA (POCT) 1.020 1.005 - 1.030 [facility] UROBILINOGEN UA (POCT) 1.0 Ophelia l E.U./dL [facility] Location:[facility], [address] [place] [address], [place], [place], [id number] [place] [address] POINT OF CARE [facility] Basic metabolic 2000 panelon 06-24-2024 Anion gap [Moles/Vol] 11 mmol/L Normal 8-15 [facility] Comment on above: Order Comment: Speci men Type: BLOOD SPECIMENOrdering Facility: [facility] Address: [address] [place] [address] Performed By: #### 2 4331-1, 41151-6 ####[facility] LABIA [id number] [place] [address] [place] Calcium [Mass/Vol] 9.6 mg/dL Normal 8.5-10.2 [facility] Comment on above: Order Comment: Speci men Type: BLOOD SPECIMENOrdering Facility: [facility] Address: [address] [place] [address] Performed By: #### 2 4331-1, 42342-9 ####[facility]CL[facility] [id number] [place] [address] [place] Chloride [Moles/Vol] 106 mmol/L Normal 98-107 [facility] Comment on above: Order Comment: Speci men Type: BLOOD SPECIMENOrdering Facility: [facility] Address: [address] [place] [address] Performed By: #### 2 4331-1, 48599-0 ####[facility]CLIA [id number] [place] [id number] [place] CO2 [Moles/Vol] 27 mmol/L Normal 22-30 [facility] Comment on above: Order Comment: Speci men Type: BLOOD SPECIMENOrdering Facility: [facility] Address: [address] [place], [place] [address] Performed By: #### 2 4331-1, 17256-0 ####[facility]CL[facility] [id number] [address] [address] [place] Creatinine [Mass/Vol] 1.34 mg/dL High 0.58-0.96 [facility] Comment on above: Order Comment: Ledy pablo Type: BLOOD SPECIMENOrdering Facility: [facility] Address: [address] [place] [address] Performed By: #### 2 4331-1, 49037-8 ####[facility] LABIA [id number] [place] [address] [place] Creatinine and Glomerular filtration rate.predicted panel (S/P/Bld) 38 mL/min/1.73m??? Low >=60 [facility] Comment on above: Order Comment: Ledy pablo Type: BLOOD SPECIMENOrdering Facility: [facility] Address: [address] [place] [address] Result Comment: Marya mated Glomerular Filtration Rate (eGFR) is calculated [...] actual GFR. Performed By: #### 2 4331-1, 46734-0 ####[facility]IA [id number] [place] [id number] [place] Glucose [Mass/Vol] 100 mg/dL High 74-99 [facility] Comment on above: Order Comment: Speci men Type: BLOOD SPECIMENOrdering Facility: [facility] Address: [address] [place] [address] Result Comment: The [place] Diabetes Association (ADA) provides guidance for cutoff [...] Standards of Medical Care in Diabetes 2016, [place] Diabetes Association. Diabetes Care. 2016.39(Suppl 1). Performed By: #### 2 4331-1, 30149-9 ####[facility]CL[facility] [id number] [place] [address] [place] Potassium [Moles/Vol] 4.6 mmol/L Normal 3.7-5.1 [facility] Comment on above: Order Comment: Speci men Type: BLOOD SPECIMENOrdering Facility: [facility] Address: [address] [place] [address] Performed By: #### 2 4331-, 17515-2 ####[facility]IA [id number] [place] [address] [place] Sodium [Moles/Vol] 144 mmol/L Normal 136-144 [facility] Comment on above: Order Comment: Lului samy Type: BLOOD SPECIMENOrdering Facility: [facility] Address: [address] [place] [address] Performed By: #### 2 4331-1, 79013-9 ####[facility]IA [id number] [place] [address] [place] Urea nitrogen [Mass/Vol] 30 mg/dL High 7-21 [facility] Comment on above: Order Comment: Speci men Type: BLOOD SPECIMENOrdering Facility: [facility] Address: [address] [place] [address] Performed By: #### 2 4331-1, 01124-6 ####[facility]IA [id number] [place] [address] [place] CBC W Auto Differential pane l (Bld)on 09-07-2024 Basophils (Bld) [#/Vol] 0.03 10*3/uL Normal <0.11 [facility] Comment on above: Order Comment: Speci men Type: BLOOD SPECIMENOrdering Facility: [facility] Address: [address] [place] [address] Performed By: #### 5 7021-8 ####[facility]CL[facility] [id number] [place] [address] [place] Basophils/100 WBC (Bld) 0.5 % Normal [facility] Comment on above: Order Comment: Speci men Type: BLOOD SPECIMENOrdering Facility: [facility] Address: [address] [place] [address] Performed By: #### 5 7021-8 ####[facility]CL[facility] [id number] [place] [address] [place] Differential cell count method Nom (Bld) Auto Normal [facility] Comment on above: Order Comment: Speci men Type: BLOOD SPECIMENOrdering Facility: [facility] Address: [address] [place] [address] Performed By: #### 5 7021-8 ####[facility]CL[facility] [id number] [place] [address] [place] Eosinophils (Bld) [#/Vol] 0.17 10*3/uL Normal <0.46 [facility] Comment on above: Order Comment: Speci men Type: BLOOD SPECIMENOrdering Facility: [facility] Address: [address] [place] [address] Performed By: #### 5 7021-8 ####[facility]CL[facility] [id number] [place] [address] [place] Eosinophils/100 WBC (Bld) 3.0 % Normal [facility] Comment on above: Order Comment: Speci men Type: BLOOD SPECIMENOrdering Facility: [facility] Address: [address] [place] [address] Performed By: #### 5 7021-8 ####[facility]CL[facility] [id number] [place] [address] [place] Erythrocyte distribution width (RBC) [Ratio] 12.5 % Normal 11.5-15.0 [facility] Comment on above: Order Comment: Speci men Type: BLOOD SPECIMENOrdering Facility: [facility] Address: [address] [place] [address] Performed By: #### 5 7021-8 ####[facility]CLIA [id number] [place] [address] [place] Hematocrit (Bld) [Volume fraction] 35.9 % Low 36.0-46.0 [facility] Comment on above: Order Comment: Speci men Type: BLOOD SPECIMENOrdering Facility: [facility] Address: [address] [place] [address] Performed By: #### 5 7021-8 ####[facility]IA [id number] [place] [address] [place] Hemoglobin (Bld) [Mass/Vol] 11.3 g/dL Low 11.5-15.5 [facility] Comment on above: Order Comment: Speci men Type: BLOOD SPECIMENOrdering Facility: [facility] Address: [address] [place] [address] Performed By: #### 5 7021-8 ####[facility] LABIA [id number] [place] [address] [place] Immature granulocytes (Bld) [#/Vol] 10*3/uL Normal <0.10 [facility] Comment on above: Order Comment: Speci men Type: BLOOD SPECIMENOrdering Facility: [facility] Address: [address] [place] [address] Performed By: #### 5 7021-8 ####[facility]IA [id number] [place] [address] [place] Immature granulocytes/100 WBC (Bld) 0.4 % Normal [facility] Comment on above: Order Comment: Speci men Type: BLOOD SPECIMENOrdering Facility: [facility] Address: [address] [place] [address] Performed By: #### 5 7021-8 ####[facility]CLIA [id number] [place] [address] [place] Lymphocytes (Bld) [#/Vol] 2.24 10*3/uL Normal 1.00-4.00 [facility] Comment on above: Order Comment: Speci men Type: BLOOD SPECIMENOrdering Facility: [facility] Address: [address] [place] [address] Performed By: #### 5 7021-8 ####[facility] LABCLIA [id number] [place] [address] [place] Lymphocytes/100 WBC (Bld) 39.6 % Normal [facility] Comment on above: Order Comment: Speci men Type: BLOOD SPECIMENOrdering Facility: [facility] Address: [address] [place] [address] Performed By: #### 5 7021-8 ####[facility] LABCLIA [id number] [place] [address] [place] MCH (RBC) [Entitic mass] 31.3 pg Normal 26.0-34.0 [facility] Comment on above: Order Comment: Speci men Type: BLOOD SPECIMENOrdering Facility: [facility] Address: [address] [place] [address] Performed By: #### 5 7021-8 ####[facility]CLIA [id number] [place] [address] [place] MCHC (RBC) [Mass/Vol] 31.5 g/dL Normal 30.5-36.0 [facility] Comment on above: Order Comment: Speci men Type: BLOOD SPECIMENOrdering Facility: [facility] Address: [address] [place] [address] Performed By: #### 5 7021-8 ####[facility]CLIA [id number] [place] [address] [place] MCV (RBC) [Entitic vol] 99.4 fL Normal 80.0-100.0 [facility] Comment on above: Order Comment: Speci men Type: BLOOD SPECIMENOrdering Facility: [facility] Address: [address] [place] [address] Performed By: #### 5 7021-8 ####[facility]CLIA [id number] [place] [address] [place] Monocytes (Bld) [#/Vol] 0.83 10*3/uL Normal <0.87 [facility] Comment on above: Order Comment: Speci men Type: BLOOD SPECIMENOrdering Facility: [facility] Address: [address] [place] [address] Performed By: #### 5 7021-8 ####[facility]CLIA [id number] [place] [address] [place] Monocytes/100 WBC (Bld) 14.7 % Normal [facility] Comment on above: Order Comment: Speci men Type: BLOOD SPECIMENOrdering Facility: [facility] Address: [address] [place] [address] Performed By: #### 5 7021-8 ####[facility]CLIA [id number] [place] [address] [place] Neutrophils (Bld) [#/Vol] 2.37 10*3/uL Normal 1.45-7.50 [facility] Comment on above: Order Comment: Speci men Type: BLOOD SPECIMENOrdering Facility: [facility] Address: [address] [place] [address] Performed By: #### 5 7021-8 ####[facility]CLIA [id number] [place] [address] [place] Neutrophils/100 WBC (Bld) 41.8 % Normal [facility] Comment on above: Order Comment: Speci men Type: BLOOD SPECIMENOrdering Facility: [facility] Address: [address] [place] [address] Performed By: #### 5 7021-8 ####[facility] LABCLIA [id number] [place] [address] [place] Nucleated RBC (Bld) [#/Vol] 10*3/uL Normal <0.01 [facility] Comment on above: Order Comment: Speci men Type: BLOOD SPECIMENOrdering Facility: [facility] Address: [address] [place] [address] Performed By: #### 5 7021-8 ####[facility]CLIA [id number] [place] [address] [place] Nucleated RBC/100 WBC (Bld) [Ratio] 0.0 /100 WBC Normal [facility] Comment on above: Order Comment: Speci men Type: BLOOD SPECIMENOrdering Facility: [facility] Address: [address] [place] [address] Performed By: #### 5 7021-8 ####[facility]CLIA [id number] [place] [address] [place] Platelet mean volume (Bld) [Entitic vol] 10.8 fL Normal 9.0-12.7 [facility] Comment on above: Order Comment: Speci men Type: BLOOD SPECIMENOrdering Facility: [facility] Address: [address] [place] [address] Performed By: #### 5 7021-8 ####[facility] LABCLIA [id number] [place] [address] [place] Platelets (Bld) [#/Vol] 172 10*3/uL Normal 150-400 [facility] Comment on above: Order Comment: Speci men Type: BLOOD SPECIMENOrdering Facility: [facility] Address: [address] [place] [address] Performed By: #### 5 7021-8 ####[facility] LABCLIA [id number] [place] [address] [place] RBC (Bld) [#/Vol] 3.61 10*6/uL Low 3.90-5.20 [facility] Comment on above: Order Comment: Speci men Type: BLOOD SPECIMENOrdering Facility: [facility] Address: [address] [place] [address] Performed By: #### 5 7021-8 ####[facility] LABIA [id number] [place] [address] [place] WBC (Bld) [#/Vol] 5.66 10*3/uL Normal 3.70-11.00 [facility] Comment on above: Order Comment: Speci men Type: BLOOD SPECIMENOrdering Facility: [facility] Address: [address] [place] [address] Performed By: #### 5 7021-8 ####[facility] LABIA [id number] [place] [address] [place] Lipid 1996 panelon 4 Cholesterol [Mass/Vol] 194 mg/dL Normal <200 [facility] Comment on above: Order Comment: Speci men Type: BLOOD SPECIMENOrdering Facility: [facility] Address: [address] [place] [address] Result Comment: <200 mg/dL, Desirable 200-239 mg/dL, Borderline high >239 mg/dL, High Performed By: #### 2 4331-1, 64780-6 ####[facility] LABIA [id number] [place] [address] [place] Cholesterol in HDL [Mass/Vol] 78 mg/dL Normal >39 [facility] Comment on above: Order Comment: Speci men Type: BLOOD SPECIMENOrdering Facility: [facility] Address: [address] [place] [address] Result Comment: 40-5 9 mg/dL, Acceptable >59 mg/dL, High: Negative risk factor for coronary heart disease <40 mg/dL, Low: Positive risk factor for coronary heart disease Performed By: #### 2 4331-1, 84767-5 ####[facility]CLIA [id number] [place] [address] [place] Cholesterol in LDL [Mass/Vol] 99 mg/dL Normal <100 [facility] Comment on above: Order Comment: Speci men Type: BLOOD SPECIMENOrdering Facility: [facility] Address: [address] [place] [address] Result Comment: <100 mg/dL, Optimal 100-129 mg/dL, Near optimal/above optimal 130-159 mg/dL, Borderline high 160-189 mg/dL, High >189 mg/dL, Very high Secondary prevention optimal LDL Cholesterol levels are recommended to be < 70 mg/dL Performed By: #### 2 433-1, 58642-0 ####[facility]CL[facility] [id number] [place] [address] [place] Cholesterol in LDL/Cholesterol in HDL [Mass ratio] 1.27 {ratio} Normal <2.54 [facility] Comment on above: Order Comment: Speci men Type: BLOOD SPECIMENOrdering Facility: [facility] Address: [address] [place] [address] Result Comment: Refe rence: 1. National Cholesterol Education Program ATP III Guideline At-A-Glance Quick Desk Reference: National Heart, Lung, and Blood [place]. National Institutes of Health. 2001: NIH Publication No. 01-3305. 2. An International Atherosclerosis Society position paper: global recommendations for the management of dyslipidemia: executive summary, Atherosclerosis. 2014: 232(2):410-413. Performed By: #### 2 4331-1, 85342-1 ####[facility]CL[facility] [id number] [place] [address] [place] Cholesterol in VLDL [Mass/Vol] 17 mg/dL Normal <30 [facility] Comment on above: Order Comment: Speci men Type: BLOOD SPECIMENOrdering Facility: [facility] Address: [address] [place] [id number] Performed By: #### 2 4331-1, 54964-8 ####[facility]CLIA [id number] [address] [address] [place] Cholesterol non HDL [Mass/Vol] 116 mg/dL Normal <130 [facility] Comment on above: Order Comment: Speci men Type: BLOOD SPECIMENOrdering Facility: [facility] Address: [address] [place] [address] Result Comment: <130 mg/dL, Optimal 130-159 mg/dL, Near optimal/above optimal 160-189 mg/dL, Borderline high 190-219 mg/dL, High >219 mg/dL, Very high Secondary prevention optimal non HDL Cholesterol levels are recommended to be <100 mg/dL Performed By: #### 2 433-1, 79967-6 ####[facility]CLIA [id number] [place] [address] [place] Cholesterol.total/Chol esterol in HDL [Mass ratio] 2.49 {ratio} Normal <5.10 [facility] Comment on above: Order Comment: Speci men Type: BLOOD SPECIMENOrdering Facility: [facility] Address: [address] [place] [address] Performed By: #### 2 4331-1, 02754-3 ####[facility]CL[facility] [id number] [place] [address] [place] FASTING TIME 12 hrs Normal [facility] Comment on above: Order Comment: Speci men Type: BLOOD SPECIMENOrdering Facility: [facility] Address: [address] [place] [id number] Performed By: #### 2 4331-1, 78484-6 ####[facility] LABCLIA [id number] [place] [id number] [place] Triglyceride [Mass/Vol] 84 mg/dL Normal <150 [facility] Comment on above: Order Comment: Speci men Type: BLOOD SPECIMENOrdering Facility: [facility] Address: [address] [place] [address] Result Comment: <150 mg/dL, Normal 150-199 mg/dL, Borderline high 200-499 mg/dL, High >499 mg/dL, Very high Performed By: #### 2 4331-1, 87143-0 ####[facility]CL[facility] [id number] [place] [id number] OF [facility] 06-[facility]24 CNOV Office Visit (UCWSTR ) ZENAIDA EVANS ([id number]) 1935 F Date Time Provider Department 06/11/24 12:30 PM KELSI ZAVALA [facility] During your visit today, [...] history is provided by the patient. No sign language translator was used. Rash This is a new [...] Comment: no retinopathy detected -both eyes - [place] [facility] - return in 1 year - Dr. [...] skin cancer 11/2020: S FINGER JOINT IMPLANT [phone]; Left Comment: Candace Marmolejo left thumb joint [...] (LONITEN) 2.5 (more content not included)... Normal [facility] Z[facility] EVANS ([id number]) 1935 F Date Time Provider Department 04/10/24 [...] hip [M (more content not included)... Normal [facility] DBT Breast - bilateral scree paula 01-10-2024 * * *Final Report* * * DATE OF EXAM: Jan 07 2024 11:25AM SSW 0582 - NICOLE SCREENING W MICHELLE / PROCEDURE REASON: Encounter for screening mammogram for breast cancer * * * * Physician Interpretation * * * * RESULT: #[id number] - NICOLE SCREENING W MICHELLE BILATERAL DIGITAL [...] mammogram, 08/18/2021 mammogram, and [facility] The breasts are heterogeneously dense, which may obscure small masses. There are benign post operative findings and biopsy clips in the right breast. There is a possible asymmetry in the right breast inner region seen on the craniocaudal view only. No other significant masses, calcifications, or other findings are seen in either breast. DIVISION OF RADIOLOGY Provider, [facility] - 01/10/2024 * * *Final Report* * * DATE OF EXAM: Jan 07 2024 11:25AM [facility] 0582 - [facility] SCREENING W MICHELLE / PROCEDURE REASON: Encounter for screening mammogram for breast cancer * * * * Physician Interpretation * * * * RESULT: #[id number] - [facility] SCREENING W MICHELLE BILATERAL DIGITAL SCREENING MAMMOGRAM [...] mammogram, 08/18/2021 mammogram, and [facility] The breasts are heterogeneously dense, which may [...] possible ultrasound are recommended. Cristina cha/meghan:01/10/2024 09:51:04 Health And Human Performance Professor(s): Stefany Donaldson RT(R)(M), [facility] letter sent: Additional Imaging Needed Mammogram BI-RADS: 0 Incomplete: needs additional imaging evaluation If this report indicates you need additional imaging, and it has NOT yet been performed, please call , to schedule. We sincerely thank you for choosing the [facility] for your breast imaging needs. Multiple [...] Health, Family Medicine, and Medical/Surgical Oncology, the [facility] has carefully reviewed the data and [...] their providers when to stop screening mammograms. Commercial Manager: Meghan Transcribe Date/Time: Jan 07 2024 10:48A Dictated by: CRISTINA BENSON MD This examination was interpreted and the report reviewed and electronically signed by: CRISTINA BENSON MD on Jan 10 2024 9:51AM EST [facility] DBT Breast - bilateral scree ningOrdered By: Ccf Provider on 01-10-2024 [facility] DBT Breast - bilateral scree chaigon 01-07-2024 Radiology Study observation (narrative) [facility] Absolute lymphocyte countOrd ered By: Armida Mason on 01-20-2024 Lymphocytes Auto (Unsp spec) [#/Vol] 1.63 10*3/uL 0.83-4.51 [facility] Automated lymphocyte count a s percentage of total leukocytesOrdered By: Armida Mason on 11-06-2023 Lymphocytes/100 WBC Auto (Unsp spec) 23.0 % 19-41 [facility] Basophil percentageOrdered B y: Armida Mason on 11-06-2023 Basophils/100 WBC (Bld) 0.3 % 0-1 [facility] Chloride [Moles/Vol] 109 mmol/L 98-107 [facility] Eosinophils/100 WBC (Bld) 0.8 % 0-5 [facility] Glucose [Mass/Vol] 106 mg/dL 74-106 [facility] Comment on above: Fasting Glucose resu lt from 100 to 125 mg/dL suggests IMPAIRED HOMEOSTASIS per A.D.A. criteria. Hemoglobin (Bld) [Mass/Vol] 11.0 g/dL 12.0-15.0 [facility] Monocytes/100 WBC (Bld) 10.0 % 0-10 [facility] Neutrophils (Bld) [#/Vol] 4.6 10*3/uL 2.0-7.7 [facility] Neutrophils/100 WBC (Bld) 65.5 % 47-70 [facility] Potassium [Moles/Vol] 4.1 mmol/L 3.5-5.1 [facility] Sodium [Moles/Vol] 140 mmol/L 136-145 [facility] WBC (Bld) [#/Vol] 7.1 10*3/uL 4.4-11.0 [facility] Determination of erythrocyte mean corpuscular volume (MCV)Ordered By: Armida Mason on 11-06-2023 MCV (RBC) [Entitic vol] 97.7 fL 81-99 [facility] Erythrocyte distribution wid th ratioOrdered By: Armida Mason on 11-06-2023 Erythrocyte distribution width (RBC) [Ratio] 13.2 % 11.6-14.6 [facility] Erythrocyte distribution wid th standard deviationOrdered By: Armida Mason on 11-06-2023 Erythrocyte distribution width (RBC) [Entitic vol] 47.7 fL 35.1-43.9 [facility] Hematocrit Auto (Bld) [Volum e fraction]Ordered By: Armida Mason on 11-06-2023 Hematocrit (Bld) [Volume fraction] 33.9 % 37-47 [facility] Immature granulocytes/100 WB C Auto (Bld)Ordered By: Armida Mason on 11-06-2023 Immature granulocytes/100 WBC (Bld) 0.400 % 0.0-0.9 [facility] Comment on above: IG% - Immature Granu locytes (promyelocytes, myelocytes and metamyelocytes) > 1% indicates that a LEFT SHIFT is Present. Laboratory - Chemistry and C hemistry - challengeOrdered By: Armida Mason on 11-06-2023 CO2 [Moles/Vol] 27.0 mmol/L 21.0-32.0 [facility] Urea nitrogen/Creatinine [Mass ratio] 23.6 mg/mg 10-20 [facility] Laboratory - Hematology and Cell countsOrdered By: Armida Mason on 11-06-2023 MCH (RBC) [Entitic mass] 31.7 pg 27.0-32.0 [facility] MCHC (RBC) [Mass/Vol] 32.4 g/dL 32-36 [facility] Nucleated RBC/100 WBC (Bld) [Ratio] 0 % 0-5 [facility] Platelets (Bld) [#/Vol] 225 10*3/uL 150-450 [facility] Laboratory - Microbiology an d Antimicrobial susceptibilityOrdered By: Armida Mason on 11-06-2023 SARS-CoV-2 (COVID-19) RNA KOKO+probe Ql (Unsp spec) [facility] No Panel InformationOrdered By: Armida Mason on 11-06-2023 Estimated Creatinine Clearance Calc 26.50 ml/min [facility] Estimated GFR (MDRD) Amer 46 mL/min >60 [facility] Comment on above: GFR Calc Estimated GFR (MDRD) Non-Af Amer 38 mL/min >60 [facility] Comment on above: Non- GFR Calc Troponin I High Sensitivity 10 pg/mL 3.0-54.0 [facility] Comment on above: Please Note: New Neli t Units and Gender Specific Reference Ranges. For more information see Policy Stat Procedure [place] High Sensitivity Troponin (TNIH) and attachments. Platelet mean volume Rui-Ec ker (Bld) [Entitic vol]Ordered By: Armida Mason on 11-06-2023 Platelet mean volume (Bld) [Entitic vol] 9.8 fL 6.2-12.0 [facility] RBC Auto (Bld) [#/Vol]Ordere d By: Armida Mason on 11-06-2023 RBC (Bld) [#/Vol] 3.47 10*6/uL 4.2-5.4 [facility] Serum or plasma calcium ashley urement (mass/volume)Ordered By: Armida Mason on 11-06-2023 Calcium [Mass/Vol] 9.4 mg/dL 8.5-10.1 [facility] Serum or plasma creatinine m easurement (mass/volume)Ordered By: Armida Mason on 11-06-2023 Creatinine [Mass/Vol] 1.40 mg/dL 0.55-1.02 [facility] Comment on above: The validity of the calculated GFR & GFRAA in patients over 70 years has not been determined. Clinical correlation is essential. Serum or plasma urea nitroge n measurement (mass/volume)Ordered By: Armida Mason on 11-06-2023 Urea nitrogen [Mass/Vol] 33 mg/dL 7-18 [facility] Thin prep Papanicolaou smear with manual screeningOrdered By: Armida Mason on 11-06-2023 Thin prep Papanicolaou smear with manual screening 4 5-15 [facility] NM HEPATOBILIARY W EF AND/OR RXon 07-08-2023 [facility] No Panel Informationon 04-01 [facility] No Panel Informationon 03-08 [facility] XR CHEST 2V FRONTAL/LATon [facility] DBT Breast - bilateral scree ningon 01-06-2023 IMPRESSION: BENIGN F INDING There is no mammographic evidence of malignancy. A 1 year screening mammogram is recommended. Simran Laughlin M.D. ch/meghan:01/06/2023 16:13:36 Health And Human Performance Professor(s): RT Lidia(R)(M), [facility] letter sent: Normal over 40 Mammogram BI-RADS: [...] Health, Family Medicine, and Medical/Surgical Oncology, the [facility] has carefully reviewed the data and [...] their providers when to stop screening mammograms. Commercial Manager: Meghan Transcribe Date/Time: Jan 05 2023 3:29P Dictated by: SIMRAN LAUGHLIN MD This examination was interpreted and the report reviewed and electronically signed by: SIMRAN LAUGHLIN MD on Jan 06 2023 4:13PM [facility] [[email or web address]] DIVISION OF RADIOLOGY * * *Final Report* * * DATE OF EXAM: Jan 05 2023 3:33PM [facility] 0582 - [facility] SCREENING W MICHELLE / PROCEDURE REASON: Encounter for screening mammogram for breast cancer * * * * Physician Interpretation * * * * RESULT: #[id number] - NICOLE SCREENING W MICHELLE BILATERAL DIGITAL [...] exams dated: 08/18/2021 mammogram, [facility], 07/18/2019 mammogram, and 08/03/2018 mammogram - [facility] [...] DIVISION OF RADIOLOGY Provider, [facility] - 01/06/2023 * * *Final Report* * * DATE OF EXAM: Jan 05 2023 3:33PM [facility] 0582 - [facility] SCREENING W MICHELLE / PROCEDURE REASON: Encounter for screening mammogram for breast cancer * * * * Physician Interpretation * * * * RESULT: #[id number] - NICOLE SCREENING W MICHELLE BILATERAL DIGITAL [...] exams dated: 08/18/2021 mammogram, 07/[facility], 07/18/2019 mammogram, and 08/03/2018 [facility] - [facility] The tissue of both breasts is heterogeneously [...] is recommended. Simran Laughlin M.D., ch/meghan:01/06/2023 16:13:36 Health And Human Performance Professor(s): RT Lidia(Renny)(M), [facility] letter sent: Normal over 41 Mammogram BI-RADS: [...] Health, Family Medicine, and Medical/Surgical Oncology, the [facility] has carefully reviewed the data and [...] their providers when to stop screening mammograms. Commercial Manager: Meghan Transcribe Date/Time: Jan 05 2023 3:29P Dictated by: SIMRAN LAUGHLIN MD This examination was interpreted and the report reviewed and electronically signed by: SIMRAN LAUGHLIN MD on Jan 06 2023 4:13PM EST [facility] DBT Breast - bilateral scree ningOrdered By: Ccf Provider on 01-06-2023 [facility] DBT Breast - bilateral scree ningon 01-05-2023 Radiology Study observation (narrative) [facility] NICOLE SCREENING W TOMOon 01-05 [facility] US KIDNEY/BLADDERon 10-08-20 [facility] UA DIP, URINE (POC)on 2021 BILIRUBIN UA (POCT) Negative Negative [facility] CLARITY UA (POCT) Cloudy [facility] COLOR UA (POCT) Yellow [facility] GLUCOSE UA (POCT) Negative Negative mg/dL [facility] HEMOGLOBIN/BLOOD UA (POCT) Small Abnormal Negative [facility] KETONE UA (POCT) Trace Negative mg/dL [facility] LEUKOCYTES UA (POCT) Small Abnormal Negative [facility] NITRITE UA (POCT) Positive Abnormal Negative [facility] PH UA (POCT) 5.5 4.5 - 8.0 [facility] Protein Ql (U) 30 mg/dL Abnormal Negative mg/dL [facility] SPECIFIC GRAVITY UA (POCT) 1.020 1.005 - 1.030 [facility] UROBILINOGEN UA (POCT) 0.2 E.U./dL Ophelia l E.U./dL [facility] CBC W Auto Differential pane l (Bld)on 09-11-2022 Basophils (Bld) [#/Vol] 0.03 10*3/uL <0.11 k/uL [facility] Basophils/100 WBC (Bld) 0.6 % [facility] Differential cell count method Nom (Bld) Auto [facility] Eosinophils (Bld) [#/Vol] 0.16 10*3/uL <0.46 k/uL [facility] Eosinophils/100 WBC (Bld) 3.3 % [facility] Erythrocyte distribution width (RBC) [Ratio] 13.3 % 11.5 - 15.0 % [facility] Hematocrit (Bld) [Volume fraction] 36.6 % 36.0 - 46.0 % [facility] Hemoglobin (Bld) [Mass/Vol] 11.9 g/dL 11.5 - 15.5 g/dL [facility] Immature granulocytes (Bld) [#/Vol] <0.10 k/uL [facility] Immature granulocytes/100 WBC (Bld) 0.2 % [facility] Lymphocytes (Bld) [#/Vol] 2.10 10*3/uL 1.00 - 4.00 k/uL [facility] Lymphocytes/100 WBC (Bld) 43.8 % [facility] MCH (RBC) [Entitic mass] 31.8 pg 26.0 - 34.0 pg [facility] MCHC (RBC) [Mass/Vol] 32.5 g/dL 30.5 - 36.0 g/dL [facility] MCV (RBC) [Entitic vol] 97.9 fL 80.0 - 100.0 fL [facility] Monocytes (Bld) [#/Vol] 0.50 10*3/uL <0.87 k/uL [facility] Monocytes/100 WBC (Bld) 10.4 % [facility] Neutrophils (Bld) [#/Vol] 2.00 10*3/uL 1.45 - 7.50 k/uL [facility] Neutrophils/100 WBC (Bld) 41.7 % [facility] Nucleated RBC (Bld) [#/Vol] <0.01 k/uL [facility] Nucleated RBC/100 WBC (Bld) [Ratio] 0.0 /100 WBC [facility] Platelet mean volume (Bld) [Entitic vol] 9.9 fL 9.0 - 12.7 fL [facility] Platelets (Bld) [#/Vol] 171 10*3/uL 150 - 400 k/uL [facility] RBC (Bld) [#/Vol] 3.74 10*6/uL Low 3.90 - 5.20 m/uL [facility] WBC (Bld) [#/Vol] 4.80 10*3/uL 3.70 - 11.00 k/uL [facility] CBC W Auto Differential pane l (Bld)on 04-17-2022 Abs Immature Gran <0.03 <0.10 k/uL [facility] Basophils (Bld) [#/Vol] 10*3/uL <0.11 k/uL [facility] Basophils/100 WBC (Bld) 0.6 % [facility] Differential cell count method Nom (Bld) Auto [facility] Eosinophils (Bld) [#/Vol] 0.08 10*3/uL <0.46 k/uL [facility] Eosinophils/100 WBC (Bld) 2.2 % [facility] Erythrocyte distribution width (RBC) [Ratio] 13.0 % 11.5 - 15.0 % [facility] Hematocrit (Bld) [Volume fraction] 31.7 % Low 36.0 - 46.0 % [facility] Hemoglobin (Bld) [Mass/Vol] 10.4 g/dL Low 11.5 - 15.5 g/dL [facility] Immature Gran % 0.3 % [facility] Lymphocytes (Bld) [#/Vol] 1.40 10*3/uL 1.00 - 4.00 k/uL [facility] Lymphocytes/100 WBC (Bld) 39.1 % [facility] MCH (RBC) [Entitic mass] 32.4 pg 26.0 - 34.0 pg [facility] MCHC (RBC) [Mass/Vol] 32.8 g/dL 30.5 - 36.0 g/dL [facility] MCV (RBC) [Entitic vol] 98.8 fL 80.0 - 100.0 fL [facility] Monocytes (Bld) [#/Vol] 0.40 10*3/uL <0.87 k/uL [facility] Monocytes/100 WBC (Bld) 11.2 % [facility] Neutrophils (Bld) [#/Vol] 1.67 10*3/uL 1.45 - 7.50 k/uL [facility] Neutrophils/100 WBC (Bld) 46.6 % [facility] Nucleated RBC (Bld) [#/Vol] 10*3/uL <0.01 k/uL [facility] Nucleated RBC/100 WBC (Bld) [Ratio] 0.0 /100 WBC [facility] Platelet mean volume (Bld) [Entitic vol] 10.3 fL 9.0 - 12.7 fL [facility] Platelets (Bld) [#/Vol] 194 10*3/uL 150 - 400 k/uL [facility] RBC (Bld) [#/Vol] 3.21 10*6/uL Low 3.90 - 5.20 m/uL [facility] WBC (Bld) [#/Vol] 3.58 10*3/uL Low 3.70 - 11.00 k/uL [facility] RETIC COUNTon 04-17-2022 Reticulocytes (Bld) [#/Vol] 0.26463 10*3/uL 0.018 - 0.100 M/uL [facility] Reticulocytes (Bld) [#/Vol]o n 04-17-2022 Reticulocytes/100 RBC (Bld) 0.9 % 0.4 - 2.0 % [facility] CNTHERAPYon 02-03-2022 CNTHERAPY OT/PT/Speech Visit ( OTC) ZENAIDA EVANS ([id number]) 1935 F MAL Date Time Provider Department 02/03/22 3:45 PM LAVERNE HELMS [facility] Date Time Provider Department Center 02/03/2022 3:45 PM [id number] HELMS [facility] Reason for Visit: Occupational Therapy [504] Primary [...] mouth two times a week. - Lmefol Jr-ydqmzz-ctF47-algal (CEREFOLIN NAC, ALGAL OIL,) 6 mg-600 mg- [...] by this patient by: PATIENT Tika Mahmood (Installation And Service Technician) Annotated image of OT HAND WRIST STRENGTHENING last updated by DEBORAH Saleem on 02/03/2022 4:00 PM [facility] CNTHERAPYon 01-27-2022 CNTHERAPY OT/PT/Speech Visit ( [facility]) ZENAIDA EVANS ([id number]) 1935 Peyton NUNEZ Date Time Provider Department 01/27/22 11:45 AM LAVERNE HELMS Date Time Provider Department Center 01/27/2022 11:45 AM [id number] HELMS [facility] Reason for Visit: Occupational Therapy [504] No [...] mouth two times a week. - Lmefol Fl-esvpld-tsN55-algal (CEREFOLIN NAC, ALGAL OIL,) 6 mg-600 mg- [...] by this patient by: PATIENT Tika Mahmood (Installation And Service Technician) Normal [facility] CNTHERAPYon 01-13-2022 CNTHERAPY OT/PT/Speech Visit ( [facility]) ZENAIDA EVANS ([id number]) 1935 Peyton NUNEZ Date Time Provider Department 01/13/22 3:45 PM LAVERNE HELMS [facility] Date Time Provider Department Center 01/13/2022 3:45 PM [id number] HELMS [facility] Reason for Visit: Occupational Therapy [504] Primary [...] mouth two times a week. - Lmefol Ma-jlktrw-lqN82-algal (CEREFOLIN NAC, ALGAL OIL,) 6 mg-600 mg- [...] by this patient by: PATIENT Tika Mahmood (Installation And Service Technician) Annotated image of OT HAND POST-OP EX'S PG6-THUMB last updated by Laverne Helms OT/Cathryn on 01/13/2022 4:03 PM [facility] CNTHERAPYon 01-06-2022 CNTHERAPY OT/PT/Speech Visit ( [facility]) ZENAIDA EVANS ([id number]) 1935 F MAL Date Time Provider Department 01/06/22 2:15 PM LAVERNE HELMS [facility] Date Time Provider Department Center 01/06/2022 2:15 PM [id number] HELMS [facility] Reason for Visit: Occupational Therapy [504] Primary [...] mouth two times a week. - Lmefol Rf-twglit-glI45-algal (CEREFOLIN NAC, ALGAL OIL,) 6 mg-600 mg- [...] by this patient by: PATIENT Tika Mahmood (Installation And Service Technician) Normal [facility] DBT Breast - bilateral beckie annapriscilla 08-18-2021 IMPRESSION: BENIGN F INDING There is no mammographic evidence of malignancy. A 1 year screening mammogram is recommended. Zoya Patel M.D. pt/penrad:08/18/2021 12:22:56 Health And Human Performance Professor(s): RT Renny Treviño, [facility] letter sent: Normal over 40 Mammogram BI-RADS: [...] Health, Family Medicine, and Medical/Surgical Oncology, the [facility] has carefully reviewed the data and [...] their providers when to stop screening mammograms. Commercial Manager: Meghan Transcribe Date/Time: Aug 18 2021 11:33A Dictated by: ZOYA PATEL MD This examination was interpreted and the report reviewed and electronically signed by: ZOYA PATEL MD on Aug 18 2021 12:22PM [facility] [[email or web address]] DIVISION OF RADIOLOGY * * *Final Report* * * DATE OF EXAM: Aug 18 2021 11:50AM [facility] 0582 - [facility] SCREENING W MICHELLE / PROCEDURE REASON: Encounter for screening mammogram for malignant neoplasm of breast * * * * Physician Interpretation * * * * RESULT: #[id number] - [facility] SCREENING W MICHELLE BILATERAL DIGITAL SCREENING MAMMOGRAM [...] made to exams dated: 07/30/2020 [facility], 07/18/2019 mammogram, 08/03/2018 mammogram - [facility], 09/17/2017 mammogram - [facility], 08/27/2015 mammogram, and 09/17/2014 mammogram - [facility]. The tissue of [...] DIVISION OF RADIOLOGY Provider, [facility] - 08/18/2021 * * *Final Report* * * DATE OF EXAM: Aug 18 2021 11:50AM [facility] 0582 - [facility] SCREENING W MICHELLE / PROCEDURE REASON: Encounter for screening mammogram for malignant neoplasm of breast * * * * Physician Interpretation * * * * RESULT: #[id number] - [facility] SCREENING W MICHELLE BILATERAL DIGITAL SCREENING MAMMOGRAM [...] made to exams dated: 07/30/2020 [facility], 07/18/2019 mammogram, 08/03/2018 mammogram - [facility], 09/17/2017 mammogram - [facility], 08/27/2015 mammogram, and 09/17/2014 mammogram - [facility]. The tissue of [...] is recommended. Zoya Patel M.D. pt/penrad:08/18/2021 12:22:56 Health And Human Performance Professor(s): RT Renny Treviño, [facility] letter sent: Normal over 41 Mammogram BI-RADS: [...] Health, Family Medicine, and Medical/Surgical Oncology, the [facility] has carefully reviewed the data and [...] their providers when to stop screening mammograms. 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 Commercial Manager: RUDY Transcribe Date/Time: Dec 24 2020 1:39P Dictated by : OMEGA RASCON MD This examination was interpreted and the report reviewed and electronically signed by: OMEGA RASCON MD on Dec 24 2020 1:43PM [facility] [[email or web address]] DIVISION OF RADIOLOGY * * *Final Report* [...] chondrocalcinosis is present. DIVISION OF RADIOLOGY Provider, [facility] - 12/24/2020 * * *Final Report* * [...] changes of the left wrist with chondrocalcinosis. Commercial Manager[facility] Transcribe Date/Time: Dec 24 2020 1:39P Dictated by : OMEGA RASCON MD This examination was interpreted and the report reviewed and electronically signed by: OMEGA RASCON MD on Dec 24 2020 1:43PM EST [facility] Radiology Study observation (narrative) [facility] XR Wrist - left 4 ViewsOrder ed By: [facility] Provider on 12-24-2020 [facility] DBT Breast - bilateral beckie paula 07-30-2020 IMPRESSION: BENIGN F INDING There is no mammographic evidence of malignancy. A 1 year screening mammogram is recommended. Kristyn olmedo/meghan:07/30/2020 18:28:30 Health And Human Performance Professor(s): RT Manuel(R)(M), [facility] letter sent: Normal over 40 Mammogram BI-RADS: [...] Health, Family Medicine, and Medical/Surgical Oncology, the [facility] has carefully reviewed the data and [...] their providers when to stop screening mammograms. Commercial Manager: Meghan Transcribe Date/Time: Jul 30 2020 11:30A Dictated by: KRISTYN WAGNER MD This examination was interpreted and the report reviewed and electronically signed by: KRISTYN WAGNER MD on Jul 30 2020 6:28PM [facility] [facility] [[email or web address] DIVISION OF RADIOLOGY * * *Final Report* * * DATE OF EXAM: Jul 30 2020 11:55AM SSW 0582 - NICOLE SCREENING W MICHELLE / PROCEDURE REASON: multiple diagnoses * * * * Physician Interpretation * * * * RESULT: #[id number] - NICOLE SCREENING W MICHELLE BILATERAL DIGITAL [...] [facility], [facility]2017 [facility] - [facility], and 09/15/2016 mammogram - [facility]. There are scattered fibroglandular [...] DIVISION OF RADIOLOGY Provider, [facility] - 07/30/2020 * * *Final Report* * * DATE OF EXAM: Jul 30 2020 11:55AM SSW 0582 - [facility] SCREENING W MICHELLE / PROCEDURE REASON: multiple diagnoses * * * * Physician Interpretation * * * * RESULT: #[id number] - [facility] SCREENING W MICHELLE BILATERAL DIGITAL SCREENING MAMMOGRAM [...] dated: 07/18/2019 mammogram, 08/03/2018 mammogram - [facility], 09/17/2017 mammogram - [facility], and 09/15/2016 mammogram - [facility]. There are scattered fibroglandular [...] screening mammogram is recommended. Kristyn olmedo/meghan:07/30/2020 18:28:30 [employer] Professor(s): RT Manuel(R)(M), [facility] letter sent: Normal over 40 Mammogram BI-RADS: [...] Health, Family Medicine, and Medical/Surgical Oncology, the [facility] has carefully reviewed the data and [...] their providers when to stop screening mammograms. Commercial Manager: Meghan Transcribe Date/Time: Jul 30 2020 11:30A Dictated by: KRISTYN WAGNER MD This examination was interpreted and the report reviewed and electronically signed by: KRISTYN WAGNER MD on Jul 30 2020 6:28PM EST [facility] Radiology Study observation (narrative) [facility] DBT Breast - bilateral scree ningOrdered By: Stella Provider on 07-30-2020 [facility] BRANDIOValyssia 07-10-2020 CNOV Office Visit (NEADFV ) ZENAIDA EVANS ([id number]) 1935 F [facility] Date Time Provider Department 07/10/20 11:00 AM AARTI RECINOS During your visit today, we recorded the following information about you: Temperature Pulse Blood pressure Weight 98.5 degrees 77/minute 172/71 66.5 kg Aarti Recinos MD 07/10/2020 12:24 PM Signed [facility] for General Neurology Follow up/ Established [...] and the patient was taken to the [facility] ED. In the ED: - VS: BP [...] (10/18/19).? ? The patient was transferred to [facility] for further management of her BP. Upon arrival on the [facility], the patient was alert and oriented. She [...] female who presented to neurology clinic w [facility] breast cancer, collagenous colitis, uncontoled HTN, hyperlipidemia, [...] 03/13/2011 no retinopathy detected -both eyes - [facility] - return in 1 year - Dr. Ruby - hair thinning sees Dr Choudhary - Hormone replacement therapy (HRT) 1974-present stopped by 09/2011 - hx of low vitamin D treated 08/2007 20.4 recheck only 23 9/ improved to 54 - PMH - PAST [...] of 07/05/20 EGD Result Value Ref Range Manager Heart A31 Gastrointestinal Endoscopy Patient Name: Zenaida Evans Procedure Date: 07/05/2020 4:08 PM Date of : 1935 Admit Type: Outpatient Age: 85 Room: A31 Procedure 9 (A3-035) Gender: Female Note Status: Finalized Attending MD: [...] short acting medicines. Referring Provider: SUSANNAH CLEMENTE [[id number]] Allergies As of Date: 07/10/2020 Noted Allergy [...] weakness [R29.898] Essential hypertension [I10] Atherosclerosis of [place] coronary artery of [place] heart without angina pectoris [I25.10] Hypothyroidism, unspecified type [E03.9] Malignant neoplasm of lower-outer quadrant of right female breast, unspecified estrogen receptor status (HCC) [C50.511] Basal cell carcinoma, face [C44.310] Order(s):MRI BRAIN WO IVCON [5003378] Order #: [id number] FUTURE Prescriptions as of 07/10/2020 Sig: COLCHICINE [...] gait [R26.9] 09/09/2015 Vaginal atrophy [N95.2] Dyspareunia [RON0937] Seborrheic dermatitis [L21.9] 11/20/2015 Vaginismus [N94.2] Elevated [...] Status:Closed by AARTI RECINOS MD on 07/10/20 [facility] PROGRESSon 07-10-2020 PROGRESS HNO ID: [id number] Author: Aarti Recinos Service: ? Author Type: Physician Type: Progress Notes Filed: 07/10/2020 12:24 PM Note Text: [facility] Follow up/ Established [...] and the patient was taken to the [facility] ED. In the ED: - VS: BP [...] of her BP. Upon arrival on the [facility], the patient was alert and oriented. She [...] female who presented to neurology clinic w [facility] breast cancer, collagenous colitis, uncontoled HTN, hyperlipidemia, [...] 03/13/2011 no retinopathy detected -both eyes - [facility] - return in 1 year - Dr. [...] of 07/05/20 EGD Result Value Ref Range Manager Heart A31 Gastrointestinal Endoscopy Patient Name: Zenaida Evans [...] care): 40 minutes Aarti Recinos MD Normal [facility] Basic Metabolic Profile (BMP )on 10-18-2019 Calcium [Mass/Vol] 8.0 mg/dL Low 8.5-10.1 [facility] Comment on above: Performed By: #### L 500.2500 ####[facility] [address] [place], [address] Chloride [Moles/Vol] 113 mmol/L High 98-107 [facility] Comment on above: Performed By: #### L 500.2500 ####[facility] [address] [place], [address] CO2 [Moles/Vol] 26.0 mmol/L Normal 21.0-32.0 [facility] Comment on above: Performed By: #### L 500.2500 ####[facility] [address] [place], [address] Creatinine [Mass/Vol] 1.13 mg/dL High 0.55-1.02 [facility] Comment on above: Result Comment: The validity of the calculated GFR AND GFRAA in patients over 70 years has not been determined. Clinical correlation is essential. Performed By: #### L 500.2500 ####[facility] [address] [place], [address] EST GFR - AA 59 mL/min Low >60 [facility] Comment on above: Result Comment: Afri can Italian GFR Calc Performed By: #### L 500.2500 ####[facility] [address] [place], [address] Estimated CRCL 35.31 ml/min Normal [facility] Comment on above: Performed By: #### L 500.2500 ####[facility] [address] [place], [address] GAP 4 Low 5-15 [facility] Comment on above: Performed By: #### L 500.2500 ####[facility] [address] [place], [address] GFR/1.73 sq M predicted among non-blacks MDRD (S/P/Bld) [Vol rate/Area] 49 mL/min/{1.73_m2} Low >60 [facility] Comment on above: Result Comment: Non- GFR Calc Performed By: #### L 500.2500 ####[facility] [address] [place], [address] Glucose [Mass/Vol] 107 mg/dL High 74-106 [facility] Comment on above: Result Comment: Fast ing Glucose result from 100 to 125 mg/dL suggests IMPAIRED HOMEOSTASIS per A.D.A. criteria. Please note revised GLUCOSE reference range effective 2017. Performed By: #### L 500.2500 ####[facility] [address] [place], [address] Potassium [Moles/Vol] 4.2 mmol/L Normal 3.5-5.1 [facility] Comment on above: Performed By: #### L 500.2500 ####[facility] [address] [place], [address] Sodium [Moles/Vol] 143 mmol/L Normal 136-145 [facility] Comment on above: Performed By: #### L 500.2500 ####[facility] [address] [place], [address] Urea nitrogen [Mass/Vol] 19 mg/dL High 7-18 [facility] Comment on above: Performed By: #### L 500.2500 ####[facility] [address] [place], [address] Urea nitrogen [Mass/Vol] 16.8 RATIO Normal 10-20 [facility] Comment on above: Performed By: #### L 500.2500 ####[facility] [address] [place], [address] Bedside Glucoseon 10-18-2019 BEDSIDE GLU 97 mg/dL Normal 70-110 [facility] Comment on above: Result Comment: CORNELIA GRANDE OF PATIENT CARE PER NURSING PROTOCOL Performed By: #### L 501.080 ####[facility] LaboratoryPoint of [address] [place] [address] Brain/Head without Contrasto n 10-18-2019 Brain/Head without Contrast [facility] Imaging Services [address] [place] [address] Brain/Head without Contrast MR#: [id number] Acct: [id number] Name: ZENAIDA EVANS Rep #: [id number] : 1935 F 84 From: Hossein Castro MD PCP: Susannah Clemente MD Status: ADM IN Study: Brain/Head without Contrast Date of Exam: 10/17/19 Exam# [id number] Ordering Dr: Serg Pinto MD ADDENDUM by [...] above information has been verbally conveyed by Hosseni Castro MD to SERG PINTO on 10/17/2019 22:27:36 (ET). Electronically Signed: Hossein Castro MD at 22:30 EST , Service support , CC: Susannah Clemente MD; Serg Pinto MD Commercial Manager: Signed Normal [facility] CBC W/Diff, Automatedon 01-0 Absolute Neut 3.6 X10 3/uL Normal 2.0-7.7 [facility] Comment on above: Performed By: #### L 100.0100 ####[facility] [address] [place], [address] Basophils/100 WBC (Bld) 0.4 % Normal 0-1 [facility] Comment on above: Performed By: #### L 100.0100 ####[facility] [address] [place], [address] Eosinophils/100 WBC (Bld) 3.0 % Normal 0-5 [facility] Comment on above: Performed By: #### L 100.0100 ####[facility] [address] [place], [address] Erythrocyte distribution width (RBC) [Ratio] 14.2 % Normal 11.6-14.6 [facility] Comment on above: Performed By: #### L 100.0100 ####[facility] [address] [place], [address] Hematocrit (Bld) [Volume fraction] 31.7 % Low 37-47 [facility] Comment on above: Performed By: #### L 100.0100 ####[facility] [address] [place], [address] Hemoglobin (Bld) [Mass/Vol] 10.2 g/dL Low 12.0-15.0 [facility] Comment on above: Performed By: #### L 100.0100 ####[facility] [address] [place], [address] IM GRAN % 0.400 % Normal 0.0-0.9 [facility] Comment on above: Result Comment: IG% - Immature Granulocytes (promyelocytes, myelocytes and metamyelocytes) > 1% indicates that a LEFT SHIFT is Present. Performed By: #### L 100.0100 ####[facility] [address] [place], [address] Lymphocytes (Bld) [#/Vol] 0.94 X10 3/uL Normal 0.83-4.51 [facility] Comment on above: Performed By: #### L 100.0100 ####[facility] [address] [place], [address] Lymphocytes/100 WBC (Bld) 17.6 % Low 19-41 [facility] Comment on above: Performed By: #### L 100.0100 ####[facility] [address] [place], [address] MCH (RBC) [Entitic mass] 33.1 pg High 27.0-32.0 [facility] Comment on above: Performed By: #### L 100.0100 ####[facility] [address] [place], [address] MCHC (RBC) [Mass/Vol] 32.2 g/dL Normal 32-36 [facility] Comment on above: Performed By: #### L 100.0100 ####[facility] [address] [place], [address] MCV (RBC) [Entitic vol] 102.9 fL High 81-99 [facility] Comment on above: Performed By: #### L 100.0100 ####[facility] [address] [place], [address] Monocytes/100 WBC (Bld) 11.1 % High 0-10 [facility] Comment on above: Performed By: #### L 100.0100 ####[facility] [address] [place], [address] Neutrophils/100 WBC (Bld) 67.5 % Normal 47-70 [facility] Comment on above: Performed By: #### L 100.0100 ####[facility] [address] [place], [address] NRBC, FLAGGED 0 % Normal 0-5 [facility] Comment on above: Performed By: #### L 100.0100 ####[facility] [address] [place], [address] Platelet mean volume (Bld) [Entitic vol] 9.7 fL Normal 6.2-12.0 [facility] Comment on above: Performed By: #### L 100.0100 ####[facility] [address] [place], [address] Platelets (Bld) [#/Vol] 161 10*3/uL Normal 150-450 [facility] Comment on above: Performed By: #### L 100.0100 ####[facility] [address] [place], [address] RBC (Bld) [#/Vol] 3.08 M/mm3 Low 4.2-5.4 [facility] Comment on above: Performed By: #### L 100.0100 ####[facility] [address] [place], [address] RDW SD 53.5 fl High 35.1-43.9 [facility] Comment on above: Performed By: #### L 100.0100 ####[facility] [address] [place], [address] WBC (Bld) [#/Vol] 5.3 10*3/uL Normal 4.4-11.0 [facility] Comment on above: Performed By: #### L 100.0100 ####[facility] [address] [place], [address] CTA Head AND Neck W/ Contras ton 10-18-2019 CTA Head AND Neck W/ Contrast [facility] Imaging Services [address] [place] [address] CTA Head AND Neck W/ Contrast MR#: [id number] Acct: [id number] Name: ZENAIDA EVANS Rep #: [id number] : 1935 F 84 From: Triny Villanueva MD PCP: Susannah Clemente MD Status: ADM IN Study: CTA Head AND Neck W/ Contrast Date of Exam: 10/17/19 Exam# [id number] Ordering Dr: Serg Pinto MD ADDENDUM by [...] 22:36 EST Tel , Service support , 10/17/192244 Date cc: Susannah Clemente MD; Serg Pinto [...] CC: Susannah Clemente MD; Serg Pinto MD Commercial Manager: Signed Normal [facility] Discharge Instructionon Discharge Instruction [facility] Medical Records Department [address] [place] [address] Instructions for Home/Discharge Instructions 10/18/19 1245 MR#: [id number] Acct: [id number] Name: ZENAIDA EVANS Rep #: [id number] : 1935 84 From: Migel Sharma MD [...] Killian D.O.; Susannah Clemente MD Signed Normal [facility] Basic Metabolic Profile (BMP )on 10-17-2019 Calcium [Mass/Vol] 8.0 mg/dL Low 8.5-10.1 [facility] Comment on above: Performed By: #### L 501.5200, L500.2500 #### [facility] Laboratory [address] [place], [address] Chloride [Moles/Vol] 111 mmol/L High 98-107 [facility] Comment on above: Performed By: #### L 501.5200, L500.2500 #### [facility] Laboratory [address] [place], [address] CO2 [Moles/Vol] 28.0 mmol/L Normal 21.0-32.0 [facility] Comment on above: Performed By: #### L 501.5200, L500.2500 #### [facility] Laboratory [address] [place], [address] Creatinine [Mass/Vol] 0.94 mg/dL Normal 0.55-1.02 [facility] Comment on above: Result Comment: The validity of the calculated GFR AND GFRAA in patients over 70 years has not been determined. Clinical correlation is essential. Performed By: #### L 501.5200, L500.2500 #### [facility] Laboratory [address] [place], [address] EST GFR - AA 73 mL/min Normal >60 [facility] Comment on above: Result Comment: Afri can Italian GFR Calc Performed By: #### L 501.5200, L500.2500 #### [facility] Laboratory [address] [place], [address] Estimated CRCL 42.45 ml/min Normal [facility] Comment on above: Performed By: #### L 501.5200, L500.2500 #### [facility] Laboratory [address] [place], [address] GAP 3 Low 5-15 [facility] Comment on above: Performed By: #### L 501.5200, L500.2500 #### [facility] Laboratory [address] [place], [address] GFR/1.73 sq M predicted among non-blacks MDRD (S/P/Bld) [Vol rate/Area] 60 mL/min/{1.73_m2} Normal >60 [facility] Comment on above: Result Comment: Non- GFR Calc Performed By: #### L 501.5200, L500.2500 #### [facility] Laboratory [address] [place], [address] Glucose [Mass/Vol] 101 mg/dL Normal 74-106 [facility] Comment on above: Result Comment: Fast ing Glucose result from 100 to 125 mg/dL suggests IMPAIRED HOMEOSTASIS per A.D.A. criteria. Please note revised GLUCOSE reference range effective 2017. Performed By: #### L 501.5200, L500.2500 #### [facility] Laboratory [address] [place], [address] Potassium [Moles/Vol] 4.2 mmol/L Normal 3.5-5.1 [facility] Comment on above: Performed By: #### L 501.5200, L500.2500 #### [facility] Laboratory [address] [place], [address] Sodium [Moles/Vol] 142 mmol/L Normal 136-145 [facility] Comment on above: Performed By: #### L 501.5200, L500.2500 #### [facility] Laboratory [address] [place], [address] Urea nitrogen [Mass/Vol] 20.1 RATIO High 10-20 [facility] Comment on above: Performed By: #### L 501.5200, L500.2500 #### [facility] Laboratory [address] [place], [address] Urea nitrogen [Mass/Vol] 19 mg/dL High 7-18 [facility] Comment on above: Performed By: #### L 501.5200, L500.2500 #### [facility] Laboratory [address] [place], [address] Bedside Glucoseon 10-17-2019 BEDSIDE GLU 121 mg/dL High 70-110 [facility] Comment on above: Result Comment: CORNELIA MENDEZENT OF PATIENT CARE PER NURSING PROTOCOL Performed By: #### L 501.080 #### [facility] Laboratory Point of Care [address] [place] [address] Brain/Head without Contrasto n 10-17-2019 Brain/Head without Contrast [facility] Imaging Services [address] [place] [address] Brain/Head without Contrast MR#: [id number] Acct: [id number] Name: ZENAIDA EVANS Rep #: [id number] : 1935 F 84 From: Hossein Castro MD PCP: Susannah Clemente MD Status: ADM IN Study: Brain/Head without Contrast Date of Exam: 10/17/19 Exam# [id number] Ordering Dr: Migel Sharma MD STUDY: CT [...] CC: Migel Sharma MD; Susannah Clemente MD Commercial Manager: Signed Normal [facility] CBC W/Diff, Automatedon 12-3 Absolute Neut 3.4 X10 3/uL Normal 2.0-7.7 [facility] Comment on above: Performed By: #### L 100.0100 ####[facility] [address] [place], [address] Basophils/100 WBC (Bld) 0.6 % Normal 0-1 [facility] Comment on above: Performed By: #### L 100.0100 ####[facility] [address] [place], [address] Eosinophils/100 WBC (Bld) 3.0 % Normal 0-5 [facility] Comment on above: Performed By: #### L 100.0100 ####[facility] [address] [place], [address] Erythrocyte distribution width (RBC) [Ratio] 13.8 % Normal 11.6-14.6 [facility] Comment on above: Performed By: #### L 100.0100 ####[facility] [address] [place], [address] Hematocrit (Bld) [Volume fraction] 31.4 % Low 37-47 [facility] Comment on above: Performed By: #### L 100.0100 ####[facility] [address] [place], [address] Hemoglobin (Bld) [Mass/Vol] 10.2 g/dL Low 12.0-15.0 [facility] Comment on above: Performed By: #### L 100.0100 ####[facility] [address] [place], [address] IM GRAN % 0.200 % Normal 0.0-0.9 [facility] Comment on above: Result Comment: IG% - Immature Granulocytes (promyelocytes, myelocytes and metamyelocytes) > 1% indicates that a LEFT SHIFT is Present. Performed By: #### L 100.0100 ####[facility] [address] [place], [address] Lymphocytes (Bld) [#/Vol] 1.25 X10 3/uL Normal 0.83-4.51 [facility] Comment on above: Performed By: #### L 100.0100 ####[facility] [address] [place], [address] Lymphocytes/100 WBC (Bld) 23.8 % Normal 19-41 [facility] Comment on above: Performed By: #### L 100.0100 ####[facility] [address] [place], [address] MCH (RBC) [Entitic mass] 33.0 pg High 27.0-32.0 [facility] Comment on above: Performed By: #### L 100.0100 ####[facility] [address] [place], [address] MCHC (RBC) [Mass/Vol] 32.5 g/dL Normal 32-36 [facility] Comment on above: Performed By: #### L 100.0100 ####[facility] [address] [place], [address] MCV (RBC) [Entitic vol] 101.6 fL High 81-99 [facility] Comment on above: Performed By: #### L 100.0100 ####[facility] [address] [place], [address] Monocytes/100 WBC (Bld) 8.4 % Normal 0-10 [facility] Comment on above: Performed By: #### L 100.0100 ####[facility] [address] [place], [address] Neutrophils/100 WBC (Bld) 64.0 % Normal 47-70 [facility] Comment on above: Performed By: #### L 100.0100 ####[facility] [address] [place], [address] NRBC, FLAGGED 0 % Normal 0-5 [facility] Comment on above: Performed By: #### L 100.0100 ####[facility] [address] [place], [address] Platelet mean volume (Bld) [Entitic vol] 9.8 fL Normal 6.2-12.0 [facility] Comment on above: Performed By: #### L 100.0100 ####[facility] [address] [place], [address] Platelets (Bld) [#/Vol] 173 10*3/uL Normal 150-450 [facility] Comment on above: Performed By: #### L 100.0100 ####[facility] [address] [place], [address] RBC (Bld) [#/Vol] 3.09 M/mm3 Low 4.2-5.4 [facility] [facility] Comment on above: Performed By: #### L 100.0100 ####[facility] [address] [place], [address] RDW SD 51.3 fl High 35.1-43.9 [facility] Comment on above: Performed By: #### L 100.0100 ####[facility] [address] [place], [address] WBC (Bld) [#/Vol] 5.3 10*3/uL Normal 4.4-11.0 [facility] Comment on above: Performed By: #### L 100.0100 ####[facility] [address] [place], [address] Consultationon 10-17-2019 Consultation [facility] Medical Records Department [address] [place] [address] Consultation 10/16/19 0640 MR#: [id number] Acct: [id number] Name: ZENAIDA EVANS Rep #: [id number] : 1935 84 From: Armani Killian DO [...] by her primary care provider located in [place]. 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 Lives: Spouse/ Significant Other Smoking Status: [...] Atorvastatin Calcium (Lipitor) 80 mg PO QHS [facility] Budesonide (Budesonide Ec) 9 mg PO DAILY [facility] Gabapentin (Neurontin) 200 mg PO QHS [facility] Heparin Sodium (Porcine) (Heparin Na) 5,000 unit SC Q12 [facility] Hydrochlorothiazide () 12.5 mg PO DAILY [facility] Nicardipine HCl 25 mg/ Sodium (Chloride) 250 mls @ 50 mls/hr CONT INF .Q5H [facility]; Protocol Last Titration: 10/16/19 06:30 Dose: 0 mg/hr, 0 mls/hr Documented by: Sodium Chloride () 1,000 mls @ 75 mls/hr IV .[id number] [facility] Last Admin: 10/16/19 02:13 Dose: 75 mls/hr Documented by: Sodium Chloride () 250 mls @ 15 mls/hr IV .[id number] PRN PRN Reason: Saline Flush Sodium Chloride () 250 mls @ 15 mls/hr IV .[id number] PRN PRN Reason: Additional IVPB Infusion Sodium Chloride () 250 mls @ 15 mls/hr IV .[id number] PRN PRN Reason: Saline Flush Sodium Chloride () 250 mls @ 15 mls/hr IV .[id number] PRN PRN Reason: Additional IVPB Infusion Labetalol HCl (Trandate) 100 mg PO BID [facility] Levothyroxine Sodium (Synthroid) 88 mcg PO DAILY@0600 [facility] Losartan Potassium (Cozaar) 50 mg PO DAILY [facility] Morphine Sulfate () 1 - 2 mg [...] my perspective. This note was generated with AppAddictiveation software. It may contain incorrect words, spelling, and punctuation that were not noted in checking the note before signing. Code Visit Inpatient Megan AND M: [id number] Init Hosp L3 10/17/19 0736 Date Armani Killian DO Cosigner Signature (if applicable): Date CC: Armani Killian D.O.; Susannah Clemente MD Signed Normal [facility] Magnesiumon 10-17-2019 Magnesium [Mass/Vol] 1.6 mg/dL Normal 1.6-2.6 [facility] Comment on above: Performed By: #### L 501.5200, L500.2500 #### [facility] Laboratory [address] [place], [address] Basic Metabolic Profile (BMP )on 10-16-2019 Calcium [Mass/Vol] 8.0 mg/dL Low 8.5-10.1 [facility] Comment on above: Performed By: #### L 500.2500, L500.4100 ####[facility] [address] [place], [address] Chloride [Moles/Vol] 111 mmol/L High 98-107 [facility] Comment on above: Performed By: #### L 500.2500, L500.4100 ####[facility] [address] [place], [address] CO2 [Moles/Vol] 29.0 mmol/L Normal 21.0-32.0 [facility] Comment on above: Performed By: #### L 500.2500, L500.4100 ####[facility] [address] [place], [address] Creatinine [Mass/Vol] 1.18 mg/dL High 0.55-1.02 [facility] Comment on above: Result Comment: The validity of the calculated GFR AND GFRAA in patients over 70 years has not been determined. Clinical correlation is essential. Performed By: #### L 500.2500, L500.4100 ####[facility] [address] [place], [address] EST GFR - AA 56 mL/min Low >60 [facility] Comment on above: Result Comment: Afri can Italian GFR Calc Performed By: #### L 500.2500, L500.4100 ####[facility] [address] [place], [address] Estimated CRCL 33.82 ml/min Normal [facility] Comment on above: Performed By: #### L 500.2500, L500.4100 ####[facility] [address] [place], [address] GAP 3 Low 5-15 [facility] Comment on above: Performed By: #### L 500.2500, L500.4100 ####[facility] [address] [place], [address] GFR/1.73 sq M predicted among non-blacks MDRD (S/P/Bld) [Vol rate/Area] 47 mL/min/{1.73_m2} Low >60 [facility] Comment on above: Result Comment: Non- GFR Calc Performed By: #### L 500.2500, L500.4100 ####[facility] [address] [place], [address] Glucose [Mass/Vol] 113 mg/dL High 74-106 [facility] Comment on above: Result Comment: Fast ing Glucose result from 100 to 125 mg/dL suggests IMPAIRED HOMEOSTASIS per A.D.A. criteria. Please note revised GLUCOSE reference range effective 2017. Performed By: #### L 500.2500, L500.4100 ####[facility] [address] [place], [address] Potassium [Moles/Vol] 4.6 mmol/L Normal 3.5-5.1 [facility] Comment on above: Performed By: #### L 500.2500, L500.4100 ####[facility] [address] [place], [address] Sodium [Moles/Vol] 143 mmol/L Normal 136-145 [facility] Comment on above: Performed By: #### L 500.2500, L500.4100 ####[facility] [address] [place], [address] Urea nitrogen [Mass/Vol] 25 mg/dL High 7-18 [facility] Comment on above: Performed By: #### L 500.2500, L500.4100 ####[facility] [address] [place], [address] Urea nitrogen [Mass/Vol] 21.2 RATIO High 10-20 [facility] Comment on above: Performed By: #### L 500.2500, L500.4100 ####[facility] [address] [place], [address] Calcium [Mass/Vol] 9.0 mg/dL Normal 8.5-10.1 [facility] Comment on above: Result Comment: Slig ht Lipemia, Result may be falsely increased. Performed By: #### L 500.2500, L501.4010 #### [facility] Laboratory [address] [place], [address] Chloride [Moles/Vol] 111 mmol/L High 98-107 [facility] Comment on above: Performed By: #### L 500.2500, L501.4010 #### [facility] Laboratory [address] [place], [address] CO2 [Moles/Vol] 27.0 mmol/L Normal 21.0-32.0 [facility] Comment on above: Result Comment: Slig ht Lipemia, Result may be falsely increased. Performed By: #### L 500.2500, L501.4010 #### [facility] Laboratory [address] [place], [address] Creatinine [Mass/Vol] 1.46 mg/dL High 0.55-1.02 [facility] Comment on above: Result Comment: Slig ht Lipemia, Result may be falsely increased. The validity of the calculated GFR AND GFRAA in patients over 70 years has not been determined. Clinical correlation is essential. Performed By: #### L 500.2500, L501.4010 #### [facility] [address] [place], [address] EST GFR - AA 44 mL/min Low >60 [facility] Comment on above: Result Comment: Afri can Italian GFR Calc Performed By: #### L 500.2500, L501.4010 #### [facility] Laboratory [address] [place], [address] Estimated CRCL 24.15 ml/min Normal [facility] Comment on above: Performed By: #### L 500.2500, L501.4010 #### [facility] Laboratory [address] [place], [address] GAP 6 Normal 5-15 [facility] Comment on above: Performed By: #### L 500.2500, L501.4010 #### [facility] Laboratory [address] [place], [address] GFR/1.73 sq M predicted among non-blacks MDRD (S/P/Bld) [Vol rate/Area] 36 mL/min/{1.73_m2} Low >60 [facility] Comment on above: Result Comment: Non- GFR Calc Performed By: #### L 500.2500, L501.4010 #### [facility] Laboratory [address] [place], [address] Glucose [Mass/Vol] 106 mg/dL Normal 74-106 [facility] Comment on above: Result Comment: Slig ht Lipemia, Result may be falsely increased. Fasting Glucose result from 100 to 125 mg/dL suggests IMPAIRED HOMEOSTASIS per A.D.A. criteria. Please note revised GLUCOSE reference range effective 2017. Performed By: #### L 500.2500, L501.4010 #### [facility] Laboratory [address] [place], [address] Potassium [Moles/Vol] 4.3 mmol/L Normal 3.5-5.1 [facility] Comment on above: Result Comment: Slig ht Lipemia, Result may be falsely increased. Performed By: #### L 500.2500, L501.4010 #### [facility] Laboratory [address] [place], [address] Sodium [Moles/Vol] 144 mmol/L Normal 136-145 [facility] Comment on above: Performed By: #### L 500.2500, L501.4010 #### [facility] Laboratory [address] [place], [address] Urea nitrogen [Mass/Vol] 25 mg/dL High 7-18 [facility] Comment on above: Result Comment: Slig ht Lipemia, Result may be falsely increased. Performed By: #### L 500.2500, L501.4010 #### [facility] Laboratory [address] [place], [address] Urea nitrogen [Mass/Vol] 17.1 RATIO Normal 10-20 [facility] Comment on above: Performed By: #### L 500.2500, L501.4010 #### [facility] Laboratory [address] [place], [address] Brain without Contraston Brain without Contrast [facility] Imaging Services [address] [place] [address] Brain without Contrast MR#: [id number] Acct: [id number] Name: ZENAIDA EVANS Rep #: [id number] : 1935 F 84 From: Julián North MD PCP: Susannah Clemente MD Status: ADM IN Study: Brain without Contrast Date of Exam: 10/16/19 Exam# [id number] Ordering Dr: Gabrielle Winkler MD STUDY: MRI [...] , CC: Susannah Clemente MD; Gabrielle Winkler Commercial Manager: Signed Normal [facility] Brain/Head without Contrasto n 10-16-2019 Brain/Head without Contrast [facility] Imaging Services [address] [place] [address] Brain/Head without Contrast MR#: [id number] Acct: [id number] Name: ZENAIDA EVANS Rep #: [id number] : 1935 F 84 From: Josue Galarza MD PCP: Christin Aly MD Status: REG ER Study: Brain/Head without Contrast Date of Exam: 10/15/19 Exam# [id number] Ordering Dr: Marshall Corrales MD ADDENDUM by [...] CC: Christin Aly MD; Marshall Corrales MD Commercial Manager: Signed Normal [facility] CBC W/Diff, Automatedon 09-19 Absolute Neut 3.6 X10 3/uL Normal 2.0-7.7 [facility] Comment on above: Performed By: #### L 100.0100 #### [facility] Laboratory [facility] [place], [address] Basophils/100 WBC (Bld) 0.4 % Normal 0-1 [facility] Comment on above: Performed By: #### L 100.0100 #### [facility] Laboratory [address] [place], [address] Eosinophils/100 WBC (Bld) 2.0 % Normal 0-5 [facility] Comment on above: Performed By: #### L 100.0100 #### [facility] Laboratory [address] [place], [address] Erythrocyte distribution width (RBC) [Ratio] 13.7 % Normal 11.6-14.6 [facility] Comment on above: Performed By: #### L 100.0100 #### [facility] Laboratory [address] [place], [address] Hematocrit (Bld) [Volume fraction] 32.0 % Low 37-47 [facility] Comment on above: Performed By: #### L 100.0100 #### [facility] Laboratory [address] [place], [address] Hemoglobin (Bld) [Mass/Vol] 10.5 g/dL Low 12.0-15.0 [facility] Comment on above: Performed By: #### L 100.0100 #### [facility] Laboratory [address] [place], [address] IM GRAN % 0.200 % Normal 0.0-0.9 [facility] Comment on above: Result Comment: IG% - Immature Granulocytes (promyelocytes, myelocytes and metamyelocytes) > 1% indicates that a LEFT SHIFT is Present. Performed By: #### L 100.0100 #### [facility] Laboratory [address] [place], [address] Lymphocytes (Bld) [#/Vol] 1.23 X10 3/uL Normal 0.83-4.51 [facility] Comment on above: Performed By: #### L 100.0100 #### [facility] Laboratory [address] [place], [address] Lymphocytes/100 WBC (Bld) 22.8 % Normal 19-41 [facility] Comment on above: Performed By: #### L 100.0100 #### [facility] Laboratory [address] [place], [address] MCH (RBC) [Entitic mass] 32.8 pg High 27.0-32.0 [facility] Comment on above: Performed By: #### L 100.0100 #### [facility] Laboratory [address] [place], [address] MCHC (RBC) [Mass/Vol] 32.8 g/dL Normal 32-36 [facility] Comment on above: Performed By: #### L 100.0100 #### [facility] Laboratory [address] [place], [address] MCV (RBC) [Entitic vol] 100.0 fL High 81-99 [facility] Comment on above: Performed By: #### L 100.0100 #### [facility] Laboratory [address] [place], [address] Monocytes/100 WBC (Bld) 8.5 % Normal 0-10 [facility] Comment on above: Performed By: #### L 100.0100 #### [facility] Laboratory [address] [place], [address] Neutrophils/100 WBC (Bld) 66.1 % Normal 47-70 [facility] Comment on above: Performed By: #### L 100.0100 #### [facility] Laboratory [address] [place], [address] NRBC, FLAGGED 0 % Normal 0-5 [facility] Comment on above: Performed By: #### L 100.0100 #### [facility] Laboratory [address] [place], [address] Platelet mean volume (Bld) [Entitic vol] 10.0 fL Normal 6.2-12.0 [facility] Comment on above: Performed By: #### L 100.0100 #### [facility] Laboratory [address] [place], [address] Platelets (Bld) [#/Vol] 202 10*3/uL Normal 150-450 [facility] Comment on above: Performed By: #### L 100.0100 #### [facility] Laboratory [address] [place], [address] RBC (Bld) [#/Vol] 3.20 M/mm3 Low 4.2-5.4 [facility] Comment on above: Performed By: #### L 100.0100 #### [facility] Laboratory [address] [place], [address] RDW SD 50.0 fl High 35.1-43.9 [facility] Comment on above: Performed By: #### L 100.0100 #### [facility] Laboratory [address] [place], [address] WBC (Bld) [#/Vol] 5.4 10*3/uL Normal 4.4-11.0 [facility] Comment on above: Performed By: #### L 100.0100 #### [facility] Laboratory [address] [place], [address] Absolute Neut 4.1 X10 3/uL Normal 2.0-7.7 [facility] Comment on above: Performed By: #### L 100.0100 ####[facility] [address] [place], [address] Basophils/100 WBC (Bld) 0.3 % Normal 0-1 [facility] Comment on above: Performed By: #### L 100.0100 ####[facility] [address] [place], [address] Eosinophils/100 WBC (Bld) 2.6 % Normal 0-5 [facility] Comment on above: Performed By: #### L 100.0100 ####[facility] [address] [place], [address] Erythrocyte distribution width (RBC) [Ratio] 13.7 % Normal 11.6-14.6 [facility] Comment on above: Performed By: #### L 100.0100 ####[facility] [address] [place], [address] Hematocrit (Bld) [Volume fraction] 36.5 % Low 37-47 [facility] Comment on above: Performed By: #### L 100.0100 ####[facility] [address] [place], [address] Hemoglobin (Bld) [Mass/Vol] 12.3 g/dL Normal 12.0-15.0 [facility] Comment on above: Performed By: #### L 100.0100 ####[facility] [address] [place], [address] IM GRAN % 0.300 % Normal 0.0-0.9 [facility] Comment on above: Result Comment: IG% - Immature Granulocytes (promyelocytes, myelocytes and metamyelocytes) > 1% indicates that a LEFT SHIFT is Present. Performed By: #### L 100.0100 ####[facility] [address] [place], [address] Lymphocytes (Bld) [#/Vol] 1.61 X10 3/uL Normal 0.83-4.51 [facility] Comment on above: Performed By: #### L 100.0100 ####[facility] [address] [place], [address] Lymphocytes/100 WBC (Bld) 24.7 % Normal 19-41 [facility] Comment on above: Performed By: #### L 100.0100 ####[facility] [address] [place], [address] MCH (RBC) [Entitic mass] 33.8 pg High 27.0-32.0 [facility] Comment on above: Performed By: #### L 100.0100 ####[facility] [address] [place], [address] MCHC (RBC) [Mass/Vol] 33.7 g/dL Normal 32-36 [facility] Comment on above: Performed By: #### L 100.0100 ####[facility] [address] [place], [address] MCV (RBC) [Entitic vol] 100.3 fL High 81-99 [facility] Comment on above: Performed By: #### L 100.0100 ####[facility] [address] [place], [address] Monocytes/100 WBC (Bld) 8.4 % Normal 0-10 [facility] Comment on above: Performed By: #### L 100.0100 ####[facility] [address] [place], [address] Neutrophils/100 WBC (Bld) 63.7 % Normal 47-70 [facility] Comment on above: Performed By: #### L 100.0100 ####[facility] [address] [place], [address] NRBC, FLAGGED 0 % Normal 0-5 [facility] Comment on above: Performed By: #### L 100.0100 ####[facility] [address] [place], [address] Platelet mean volume (Bld) [Entitic vol] 10.1 fL Normal 6.2-12.0 [facility] Comment on above: Performed By: #### L 100.0100 ####[facility] [address] [place], [address] Platelets (Bld) [#/Vol] 221 10*3/uL Normal 150-450 [facility] Comment on above: Performed By: #### L 100.0100 ####[facility] [address] [place], [address] RBC (Bld) [#/Vol] 3.64 M/mm3 Low 4.2-5.4 [facility] Comment on above: Performed By: #### L 100.0100 ####[facility] [address] [place], [address] RDW SD 50.0 fl High 35.1-43.9 [facility] Comment on above: Performed By: #### L 100.0100 ####[facility] [address] [place], [address] WBC (Bld) [#/Vol] 6.5 10*3/uL Normal 4.4-11.0 [facility] Comment on above: Performed By: #### L 100.0100 ####[facility] [address] [place], [address] Carotid Duplex Ultrasoundon 10-16-2019 Carotid Duplex Ultrasound [facility] Cardiovascular Services [address] [place] [address] Carotid Duplex Ultrasound 10/16/19 0848 MR#: [id number] Acct: [id number] Name: ZENAIDA EVANS Rep #: [id number] : 1935 84 From: Brandyn Rocha MD [...] in the left bulb. Procedure Carotid Duplex 66931. Exam performed portable in ICU/CCU. Interpretation Summary [...] Winkler Date Dictated: 10/16/1947 Date Transcribed: 10/16/191701 Commercial Manager: Signed Normal [facility] Chest 1 Viewon 10-16-2019 Chest 1 View [facility] Imaging Services [address] [place] [address] Chest 1 View MR#: [id number] Acct: [id number] Name: ZENAIDA EVANS Rep #: [id number] : 1935 F 84 From: Josue Galarza MD PCP: Christin Aly MD Status: REG ER Study: Chest 1 View Date of Exam: 10/15/19 Exam# [id number] Ordering Dr: Marshall Corrales MD HISTORY: PT [...] CC: Christin Aly MD; Marshall Corrales MD Commercial Manager: Signed Normal [facility] Echocardiogram Completeon Echocardiogram Complete [facility] [place] [place] [address] Echo Complete 10/16/19 0815 MR#: [id number] Acct: [id number] Name: ZENAIDA EVANS Rep #: [id number] : 1935 84 From: Vasile Reyes MD [...] Date Dictated: 10/16/1915 Date Transcribed: 10/16/19 131 Commercial Manager: Signed Normal [facility] Emergency Department Summary on 10-16-2019 Emergency Department Summary [facility] Medical Records Department [address] [place] [address] Emergency Department Summary 10/15/19 2256 MR#: [id number] Acct: [id number] Name: ZENAIDA EVANS Rep #: [id number] : 1935 84 From: Marshall Corrales MD PCP: Christin Aly MD Status: ADM IN History of Present Illness Chief Complaint: Neuro S/Sx 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 Call [facility] ([phone]) or report to the closest Emergency Room. Call 911 if necessary. 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 at 2220 Reported and signed by: Josue Galarza MD [...] Subcu heparin. This note was generated with AppAddictiveation software. It may contain incorrect words, spelling, and punctuation that were not noted in checking the note before signing. Code Visit Inpatient E AND M: [id number] Init Hosp L3 10/16/19 0117 Date Gabrielle Winkler MD Cosigner Signature: Date (if applicable) CC: Gabrielle Winkler; Christin Aly MD Signed Normal [facility] Lipid Profileon 10-16-2019 Cholesterol [Mass/Vol] 202 mg/dL High 200 [facility] Comment on above: Result Comment: <200 mg/dL Desirable 200-240 mg/dL Borderline >240 mg/dL High Risk Performed By: #### L 500.2500, L500.4100 ####[facility] [address] [place], [place], [address] Cholesterol in HDL [Mass/Vol] 84 mg/dL Normal [facility] Comment on above: Result Comment: The drugs N-Acetylcysteine and Metamizole may falsely depress this assay. Reference Range HDL <40 mg/dL Low HDL Cholesterol HDL >or= 60 mg/dL High HDL Cholesterol Performed By: #### L 500.2500, L500.4100 ####[facility] [address] [place], [address] Cholesterol in LDL [Mass/Vol] 102 mg/dL Normal 0-130 [facility] Comment on above: Performed By: #### L 500.2500, L500.4100 ####[facility] [address] [place], [address] Cholesterol in VLDL [Mass/Vol] 16 mg/dL Normal 5-40 [facility] Comment on above: Performed By: #### L 500.2500, L500.4100 ####[facility] [address] [place], [address] Triglyceride [Mass/Vol] 80 mg/dL Normal [facility] Comment on above: Result Comment: The drugs N-Acetylcysteine and Metamizole may falsely depress this assay. Serum Triglycerides Reference Interval Normal <150 mg/dL Borderline high 150 - 199 mg/dL High 200 - 499 mg/dL Very High > or = 500 mg/dL Performed By: #### L 500.2500, L500.4100 ####[facility] [address] [place], [address] Partial Thromboplast Timeon 10-16-2019 aPTT Coag (Bld) [Time] 29.7 s Normal 24.1-36.2 [facility] Comment on above: Performed By: #### L 300.4310, L300.3900 #### [facility] [address] [place], [address] Prothrombin Time w/INRon INR Coag (PPP) [Relative time] 0.9 {INR} Normal [facility] Comment on above: Performed By: #### L 300.4310, L300.3900 #### [facility] [address] [place], [address] PT Coag (PPP) [Time] 12.2 s Normal 11.7-14.9 [facility] Comment on above: Performed By: #### L 300.4310, L300.3900 #### [facility] [address] [place], [address] Renal Artery Duplexon 2018 Renal Artery Duplex [facility] [address] [place] [address] Renal Artery Duplex Ultrasound 10/16/19 1419 MR#: [id number] Acct: [id number] Name: ZENAIDA EVANS Rep #: [id number] : 1935 84 From: Brandyn Rocha MD [...] Referring Physician: Christin Aly Performed By: Manjula Rothman RVT 10/16/191722 Date Brandyn Rocha MD CC: Migel Sharma MD; Susannah Clemente MD Date Dictated: 10/16/19 1419 Date Transcribed: 10/16/191722 Commercial Manager: Signed Normal [facility] Troponin-Ion 10-16-2019 Troponin I.cardiac [Mass/Vol] ng/mL Normal <0.045 [facility] Comment on above: Result Comment: Slig ht Lipemia, Result may be falsely increased. TROPONIN-I EXPECTED VALUES <0.045 Negative 0.045 - 0.590 Consistent with Cardiac Damage > OR = 0.600 Critical Value Not every elevated troponin is indicative of CO. These values should be used with clinical judgement in examining the patient's clinical picture for diagnosis. To establish a diagnosis of CO versus myocardial injury, there must be a demonstrated rise and/or fall in the troponin values, in addition to ischemic symptoms, EKG changes, new regional wall motion abnormality, and/or angiographical evidence. PLEASE NOTE: REFERENCE RANGES EDITED 18 Performed By: #### L 500.2500, L501.4010 #### [facility] [address] [place], [address] CNOVon 02-07-2018 CNOV Office Visit (AGCARDWST) -------ZENAIDA EVANS ([id number]) 1935 Pey[place] William Time Provider [facility]02/07/18 3:00 PM JAMALSOCTTY During your visit today, we recorded the [...] - metBeta cecilia for ASHD with prior CO or prior LVEFANDlt;40 (NQF 0070) - N/ABeta [...] at the time of dosing is greater [id number]. Hopefully we can come to more equilibrium. She will continue Diovan at hercurrent dose.She was advised to increase magnesium in her diet.I've asked her to try Dramamine for episodes of nausea and vertigo to see ifthis helps. 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 I've encouragedher to follow this up with Dr. Clemente. [facility] will [facility] as originally [...] 100. Blood pressure will vary from less [id number] to over 150.She has been having problems with some bone pain and headaches. She's had onsetof nausea and some mild vertigo over the last few weeks. She has hadintermittent constipation and occasional vomiting. She reports that she hadbrain scan done [facility].She's had rare , atypical chest discomfort. She [...] 03/13/2011 no retinopathy detected -both eyes - [facility] - return in 1 year -Dr. Ruby- [...] History Narrative . 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 5 grandchildren (no greats yet). Enjoys gardening, anything outside, working on manuscript for a book [employer] [place]. Enjoys knitting, sewing and photgraphy.REVIEW OF SYSTEMS: [...] programs in your area.Referring Provider: LIU HSU [[id number]]Allergies As of Date: 02/07/2018 Noted Allergy ReactionSCOPOLAMINE [...] hypertension [I15.0]Order(s):[facility] [[id number]] Order #: [id number] FUTURE hydroCHLOROthiazide (HYDRODIURIL, ESIDRIX) 25 mg tabletTake [...] GABAPENTIN 100 MG CAPSULE >> Tika Jeffrey JOAN 02/07/2018 3:41 PM >> TIKA JEFFREY MA [facility] Feb 07, 2018 3:41 PM Not taking PROBIOTIC ORAL >> Tika Daoneida JOAN 02/07/2018 3:43 PM >> TIKA JEFFREY MA Feb 07, 2018 3:43 PM Not taking MINOXIDIL 5 % TOPICAL SOLUTION >> Tika Jeffrey JOAN 02/07/2018 3:43 PM >> TIKA JEFFREY MA Feb 07, 2018 3:43 PM Not takingProblem List [...] [R26.9] INVALID FOR* Vaginal atrophy [N95.2] Dyspareunia [UZF6667] Seborrheic dermatitis [L21.9] INVALID FOR* Vaginismus [N94.2] [...] the following areas and 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 EAT A WHOLE FOOD, PLANT BASED [...] on file.Follow-up and Disposition History RecordedEncounter Number: [id number] Status:Closed by SCOTTY BERRY MD on 02/07/18 [facility] PROGRESSon 02-07-2018 PROGRESS HNO ID: [id number] thor: Scotty Rankin: (none)Author Type: PhysicianType: Progress NotesFiled: 02/07/2018 5:05 PMNote Text:PERTINENT CARDIAC HISTORYChest pain - normal cath and stressPalpitations - SVTHTNHLADHERENCE TO GUIDELINESACE-I or ARB for HF with prior LVEF<40 (NQF 0081) - N/AASA or Plavix for ASHD (NQF 0067) - metBeta cecilia for ASHD with prior CO or prior LVEF<40 (NQF 0070) - N/ABeta [...] milligrams twice daily. She may take an milligrams if her systolic blood pressure at [...] that shehad brain scan done while in [facility].She's had rare , atypical chest discomfort. She [...] 03/13/2011 no retinopathy detected -both eyes - [facility] - return in 1year - Dr. Ruby- [...] History Narrative . 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 5 grandchildren (no greats yet). Enjoys gardening, anything outside, working on manuscript for a book [employer] [place]. Enjoys knitting, sewing and photgraphy.REVIEW OF SYSTEMS: [...] Signed:Scotty Berry MDAprjoaquim 2017 4:03 [facility]:Susannah Clemente MD [facility] CNOVon 08-26-2017 CNOV Office Visit (AGCARDWST) -------ZENAIDA EVANS ([id number]) 1935 Pey[address] William Time Provider Riyskytzyj15/9/17 11:00 AM SCOTTY BERRYWSNegrito During your visit [...] - metBeta cecilia for ASHD with prior CO or prior LVEFANDlt;40 (NQF 0070) - N/ABeta [...] with treatment plan.This note was generated using anchor.travel voice recognition system, and there may besome [...] 03/13/2011 no retinopathy detected -both eyes - [facility] - return in 1 year -Dr. Ruby- [...] History Narrative . 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 5 grandchildren (no greats yet). Enjoys gardening, anything outside, working on manuscript for a book on[employer] [place]. Enjoys knitting, sewing and photgraphy.REVIEW OF SYSTEMS: [...] she consider moderate intensity statintherapy.Electronically Signed:Scotty Berry MDAugust 26, 2017 11:21 [facility]:Héctor Vargas MD 08/26/2017 11:22 AM SignedMOUNTAIN VIEW REGIONAL MEDICAL CENTERSTYLE CHANGEA healthy lifestyle is [...] programs in your area.Referring Provider: SUSANNAH CLEMENTE [[id number]]Allergies As of Date: 08/26/2017 Noted Allergy ReactionSCOPOLAMINE [...] pain, unspecified type [R07.9] SVT (supraventricular tachycardia) ([facility]) [I47.1]Order(s):ECG B/O W INTERP (MED OFFICE) [ECG06] Order #: [id number] as of 08/26/2017 Sig: BUDESONIDE DR - [...] 08/26/2017 10:50 AM >> TIKA JEFFREY MA [facility] Aug 26, 2017 10:50 AM Not [...] [R26.9] INVALID FOR* Vaginal atrophy [N95.2] Dyspareunia [NIE1312] Seborrheic dermatitis [L21.9] INVALID FOR* Vaginismus [N94.2] [...] the following areas and 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 EAT A WHOLE FOOD, PLANT BASED [...] your area.Follow-up and Disposition History RecordedEncounter Number: [id number] Status:Closed by SCOTTY BERRY MD on 08/27/17 [facility] PROGRESSon 08-26-2017 PROGRESS HNO ID: [id number] thor: Scotty Rankin: (none)Author Type: PhysicianType: Progress NotesFiled: 08/27/2017 10:10 AMNote Text:PERTINENT CARDIAC HISTORYChest pain - normal cath and stressPalpitations - SVTHTNHLADHERENCE TO GUIDELINESACE-I or ARB for HF with prior LVEF<40 (NQF 0081) - N/AASA or Plavix for ASHD (NQF 0067) - metBeta cecilia for ASHD with prior CO or prior LVEF<40 (NQF 0070) - N/ABeta [...] with treatment plan.This note was generated using anchor.travel voice recognition system, and theremay be some [...] 03/13/2011 no retinopathy detected -both eyes - [facility] - return in 1year - Dr. Ruby- [...] History Narrative . 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 5 grandchildren (no greats yet). Enjoys gardening, anything outside, working on manuscript for a book on[employer], [place]. Enjoys knitting, sewing and photgraphy.REVIEW OF SYSTEMS: [...] statin therapy.Electronically Signed:Scotty Berry MDNovember 2016 11:21 [facility]:Susannah Clemente MD [facility] Additional Injections: Cathryn farias A1 [facility] Vital Signs Date Time Vital Sign Value Performing Clinician Rosemary gonzales 04-10-2025 00:00-0400 Diastolic blood pressure 78 mm[Hg] Dr. Susannah Clemente MD Work Phone: [facility] 04-10-2025 00:00-0400 Heart rate 65 /min Dr. Susannah Clemente MD Work Phone: [facility] 04-10-2025 00:00-0400 Respiratory rate 12 /min Dr. Susannah Clemente MD Work Phone: [facility] 04-10-2025 00:00-0400 SaO2% (BldA) [Mass fraction] 94 % Dr. Susannah Clemente MD Work Phone: [facility] 04-10-2025 00:00-0400 Systolic blood pressure 179 mm[Hg] Dr. Susannah Clemente MD Work Phone: [facility] 04-09-2025 23:08-0400 Body temperature 97.8 [degF] Dr. Susannah Clemente MD Work Phone: [facility] 04-09-2025 18:49-0400 Body height 167.[address] Susannah Clemente MD Work Phone: [facility] 04-09-2025 18:49-0400 Body mass index (BMI) [Ratio] 20.9 kg/m2 Dr. Susannah Clemente MD Work Phone: [facility] 04-09-2025 18:49-0400 Body weight 58.[address] Susannah Clemente MD Work Phone: [facility] 04-03-2025 12:08-0400 Diastolic blood pressure 89 mm[Hg] Paul Bautista MD Work Phone: [facility] 04-03-2025 12:08-0400 Systolic blood pressure 168 mm[Hg] Paul Bautista MD Work Phone: [facility] 04-03-2025 12:04-0400 Body height 168.9 cm Paul Bautista MD Work Phone: [facility] 04-03-2025 12:04-0400 Body mass index (BMI) [Ratio] 20.51 kg/m2 Paul Bautista MD Work Phone: [facility] 04-03-2025 12:04-0400 Body weight 58.51 kg Paul Bautista MD Work Phone: [facility] 04-03-2025 12:04-0400 Heart rate 67 /min Paul Bautista MD Work Phone: [facility] 04-03-2025 12:04-0400 Respiratory rate 15 /min Paul Bautista MD Work Phone: [facility] 04-03-2025 12:04-0400 SaO2% (BldA) [Mass fraction] 95 % Paul Bautista MD Work Phone: [facility] 03-27-2025 16:37-0400 Diastolic blood pressure 81 mm[Hg] Susannah Clemente MD Work Phone: [facility] 03-27-2025 16:37-0400 Systolic blood pressure 149 mm[Hg] Susannah Clemente MD Work Phone: [facility] 03-27-2025 16:02-0400 Body height 167.6 cm Susannah Clemente MD Work Phone: [facility] 03-27-2025 16:02-0400 Body mass index (BMI) [Ratio] 21.49 kg/m2 Susannah Clemente MD Work Phone: [facility] 03-27-2025 16:02-0400 Body temperature 97.59 [degF] Susannah Clemente MD Work Phone: [facility] 03-27-2025 16:02-0400 Body weight 60.4 kg Susannah Clemente MD Work Phone: [facility] 03-27-2025 16:02-0400 Heart rate 62 /min Susannah Clemente MD Work Phone: [facility] 03-27-2025 16:02-0400 SaO2% (BldA) [Mass fraction] 97 % Susannah Clemente MD Work Phone: [facility] 07-26-2024 13:57-0400 Body height 167.6 cm Michelle Choudhary MD Work Phone: [facility] 07-26-2024 13:57-0400 Body mass index (BMI) [Ratio] 21.69 kg/m2 Michelle Choudhary MD Work Phone: [facility] 07-26-2024 13:57-0400 Body weight 60.96 kg Michelle Choudhary MD Work Phone: [facility] 07-26-2024 13:57-0400 Diastolic blood pressure 75 mm[Hg] Michelle Choudhary MD Work Phone: [facility] 07-26-2024 13:57-0400 Systolic blood pressure 188 mm[Hg] Michelle Choudhary MD Work Phone: [facility] 07-17-2024 10:43-0400 Body mass index (BMI) [Ratio] 22.1 kg/m2 Dominguez Harkins MD Work Phone: [facility] 07-17-2024 10:43-0400 Body temperature 97.3 [degF] Dominguez Harkins MD Work Phone: [facility] 07-17-2024 10:43-0400 Body weight 62.1 kg Dominguez Harkins MD Work Phone: [facility] 07-17-2024 10:43-0400 Diastolic blood pressure 84 mm[Hg] Dominguez Harkins MD Work Phone: [facility] 07-17-2024 10:43-0400 Heart rate 82 /min Dominguez Harkins MD Work Phone: [facility] 07-17-2024 10:43-0400 Respiratory rate 18 /min Dominguez Harkins MD Work Phone: [facility] 07-17-2024 10:43-0400 SaO2% (BldA) [Mass fraction] 95 % Dominguez Harkins MD Work Phone: [facility] 07-17-2024 10:43-0400 Systolic blood pressure 144 mm[Hg] Dominguez Harkins MD Work Phone: [facility] 07-13-2024 14:28-0400 Body mass index (BMI) [Ratio] 22.17 kg/m2 Erwin Rosales MD Work Phone: [facility] 07-13-2024 14:28-0400 Body temperature 98.2 [degF] Erwin Rosales MD Work Phone: [facility] 07-13-2024 14:28-0400 Body weight 62.3 kg Erwin Rosales MD Work Phone: [facility] 07-13-2024 14:28-0400 Diastolic blood pressure 82 mm[Hg] Erwin Rosales MD Work Phone: [facility] 07-13-2024 14:28-0400 Heart rate 63 /min Erwin Rosales MD Work Phone: [facility] 07-13-2024 14:28-0400 Respiratory rate 20 /min Erwin Rosales MD Work Phone: [facility] 07-13-2024 14:28-0400 SaO2% (BldA) [Mass fraction] 97 % Erwin Rosales MD Work Phone: [facility] 07-13-2024 14:28-0400 Systolic blood pressure 165 mm[Hg] Erwin Rosales MD Work Phone: [facility] 07-03-2024 10:20-0400 Body mass index (BMI) [Ratio] 21.81 kg/m2 Susannah Clemente MD Work Phone: [facility] 07-03-2024 10:20-0400 Body temperature 97.9 [degF] Susannah Clemente MD Work Phone: [facility] 07-03-2024 10:20-0400 Body weight 61.3 kg Susannah Clemente MD Work Phone: [facility] 07-03-2024 10:20-0400 Diastolic blood pressure 72 mm[Hg] Susannah Clemente MD Work Phone: [facility] 07-03-2024 10:20-0400 Heart rate 74 /min Susannah Clemente MD Work Phone: [facility] 07-03-2024 10:20-0400 SaO2% (BldA) [Mass fraction] 96 % Susannah Clemente MD Work Phone: [facility] 07-03-2024 10:20-0400 Systolic blood pressure 136 mm[Hg] Susannah Clemente MD Work Phone: [facility] 06-26-2024 15:51-0400 Body mass index (BMI) [Ratio] 21.63 kg/m2 Emilee Indorf MAJOR ASSEMBLY [employer].POWER SYSTEM ENGINEER Work Phone: [facility] 06-26-2024 15:51-0400 Body temperature 97.39 [degF] Emilee Palomaorf MAJOR ASSEMBLY [employer].POWER SYSTEM ENGINEER Work Phone: [facility] 06-26-2024 15:51-0400 Body weight 60.8 kg Emilee Palomaorf MAJOR ASSEMBLY [employer].POWER SYSTEM ENGINEER Work Phone: [facility] 06-26-2024 15:51-0400 Diastolic blood pressure 78 mm[Hg] Emilee Indorf MAJOR ASSEMBLY [employer].POWER SYSTEM ENGINEER Work Phone: [facility] 06-26-2024 15:51-0400 Heart rate 78 /min Emilee Indorf MAJOR ASSEMBLY [employer].POWER SYSTEM ENGINEER Work Phone: [facility] 06-26-2024 15:51-0400 Respiratory rate 16 /min Emilee Indorf MAJOR ASSEMBLY [employer].POWER SYSTEM ENGINEER Work Phone: [facility] 06-26-2024 15:51-0400 SaO2% (BldA) [Mass fraction] 94 % Emilee Indorf MAJOR ASSEMBLY [employer].POWER SYSTEM ENGINEER Work Phone: [facility] 06-26-2024 15:51-0400 Systolic blood pressure 132 mm[Hg] Emilee Doworf MAJOR ASSEMBLY [employer].POWER SYSTEM ENGINEER Work Phone: [facility] 06-11-2024 12:32-0400 Body mass index (BMI) [Ratio] 20.99 kg/m2 Kelsi Zavala MAJOR ASSEMBLY [employer].POWER SYSTEM ENGINEER Work Phone: [facility] 06-11-2024 12:32-0400 Body temperature 97.11 [degF] Kelsi Zavala MAJOR ASSEMBLY [employer].POWER SYSTEM ENGINEER Work Phone: [facility] 06-11-2024 12:32-0400 Body weight 59 kg Kelsi Zavala MAJOR ASSEMBLY [employer].POWER SYSTEM ENGINEER Work Phone: [facility] 06-11-2024 12:32-0400 Diastolic blood pressure 85 mm[Hg] Kelsi Zavala MAJOR ASSEMBLY [employer].POWER SYSTEM ENGINEER Work Phone: [facility] 06-11-2024 12:32-0400 Heart rate 70 /min Kelsi Zavala MAJOR ASSEMBLY [employer].POWER SYSTEM ENGINEER Work Phone: [facility] 06-11-2024 12:32-0400 Respiratory rate 20 /min Kelsi Zavala MAJOR ASSEMBLY [employer].POWER SYSTEM ENGINEER Work Phone: [facility] 06-11-2024 12:32-0400 SaO2% (BldA) [Mass fraction] 96 % Kelsi Zavala MAJOR ASSEMBL[employer].POWER SYSTEM ENGINEER Work Phone: [facility] 06-11-2024 12:32-0400 Systolic blood pressure 176 mm[Hg] Kelsi Zavala MAJOR ASSEMBLY [employer].POWER SYSTEM ENGINEER Work Phone: [facility] 03-30-2024 14:48-0400 Body height 167.6 cm Paul Bautista MD Work Phone: [facility] 03-30-2024 14:48-0400 Body mass index (BMI) [Ratio] 21.14 kg/m2 Paul Bautista MD Work Phone: [facility] 03-30-2024 14:48-0400 Body weight 59.42 kg Paul Bautista MD Work Phone: [facility] 03-30-2024 14:48-0400 Diastolic blood pressure 68 mm[Hg] Paul Bautista MD Work Phone: [facility] 03-30-2024 14:48-0400 Heart rate 75 /min Paul Bautista MD Work Phone: [facility] 03-30-2024 14:48-0400 SaO2% (BldA) [Mass fraction] 97 % Paul Bautista MD Work Phone: [facility] Comment on above: RA 03-30-2024 14:48-0400 Systolic blood pressure 133 mm[Hg] Paul Bautista MD Work Phone: [facility] 03-29-2024 12:39-0400 Diastolic blood pressure 58 mm[Hg] Susannah Clemente MD Work Phone: [facility] 03-29-2024 12:39-0400 Systolic blood pressure 120 mm[Hg] Susannah Clemente MD Work Phone: [facility] 03-28-2024 16:32-0400 Diastolic blood pressure 91 mm[Hg] Susannah Clemente MD Work Phone: [facility] 03-28-2024 16:32-0400 Systolic blood pressure 176 mm[Hg] Susannah Clemente MD Work Phone: [facility] 03-28-2024 16:07-0400 Body mass index (BMI) [Ratio] 22.03 kg/m2 Susannah Clemente MD Work Phone: [facility] 03-28-2024 16:07-0400 Body temperature 97.7 [degF] Susannah Clemente MD Work Phone: [facility] 03-28-2024 16:07-0400 Body weight 61.92 kg Susannah Clemente MD Work Phone: [facility] 03-28-2024 16:07-0400 Heart rate 60 /min Susannah Clemente MD Work Phone: [facility] 03-28-2024 16:07-0400 SaO2% (BldA) [Mass fraction] 97 % Susannah Clemente MD Work Phone: [facility] 01-26-2024 11:31-0400 Body height 167.6 cm Virgil Gomez MD Work Phone: [facility] 01-26-2024 11:31-0400 Body temperature 97.7 [degF] Virgil Gomez MD Work Phone: [facility] 01-26-2024 11:31-0400 Body weight 62.14 kg Virgil Gomez MD Work Phone: [facility] 01-26-2024 11:31-0400 Diastolic blood pressure 75 mm[Hg] Virgil Gomez MD Work Phone: [facility] 01-26-2024 11:31-0400 Heart rate 64 /min Virgil Gomez MD Work Phone: [facility] 01-26-2024 11:31-0400 SaO2% (BldA) [Mass fraction] 96 % Virgil Gomez MD Work Phone: [facility] 01-26-2024 11:31-0400 Systolic blood pressure 181 mm[Hg] Virgil Gomez MD Work Phone: [facility] 11-06-2023 13:44-0500 Diastolic blood pressure 81 mm[Hg] [facility] 11-06-2023 13:44-0500 Heart rate 63 /min [facility] 11-06-2023 13:44-0500 Systolic blood pressure 178 mm[Hg] [facility] 11-06-2023 11:49-0500 Body height 167.64 cm [facility] 11-06-2023 11:49-0500 Body mass index (BMI) [Ratio] 21.9 kg/m2 [facility] 11-06-2023 11:49-0500 Body temperature 95.6 [degF] [facility] 11-06-2023 11:49-0500 Body weight 61.5 kg [facility] 11-06-2023 11:49-0500 Respiratory rate 16 /min [facility] 11-06-2023 11:49-0500 SaO2% (BldA) [Mass fraction] 98 % [facility] 09-30-2023 11:48-0500 Body height 167.6 cm Paul Bautista MD Work Phone: [facility] 09-30-2023 11:48-0500 Body weight 59.88 kg Paul Bautista MD Work Phone: [facility] 09-30-2023 11:48-0500 Diastolic blood pressure 63 mm[Hg] Paul Bautista MD Work Phone: [facility] 09-30-2023 11:48-0500 Heart rate 70 /min Paul Bautista MD Work Phone: [facility] 09-30-2023 11:48-0500 Respiratory rate 15 /min Paul Bautista MD Work Phone: [facility] 09-30-2023 11:48-0500 SaO2% (BldA) [Mass fraction] 95 % Paul Bautista MD Work Phone: [facility] 09-30-2023 11:48-0500 Systolic blood pressure 155 mm[Hg] Paul Bautista MD Work Phone: [facility] 08-06-2023 11:11-0400 Body height 166.4 cm Migel OROPEZA-C Work Phone: [facility] 08-06-2023 11:11-0400 Body weight 60.83 kg Migel OROPEZA-C Work Phone: [facility] 08-06-2023 11:11-0400 Diastolic blood pressure 67 mm[Hg] Migel OROPEZA-C Work Phone: [facility] 08-06-2023 11:11-0400 Heart rate 69 /min Migel OROPEZA-C Work Phone: [facility] 08-06-2023 11:11-0400 SaO2% (BldA) [Mass fraction] 95 % Migel OROPEZA-C Work Phone: [facility] 08-06-2023 11:11-0400 Systolic blood pressure 125 mm[Hg] Migel OROPEZA-C Work Phone: [facility] 07-05-2023 13:43-0400 Diastolic blood pressure 60 mm[Hg] Susannah Clemente MD Work Phone: [facility] 07-05-2023 13:43-0400 Systolic blood pressure 138 mm[Hg] Susannah Clemente MD Work Phone: [facility] 07-05-2023 12:58-0400 Body height 168.9 cm Susannah Clemente MD Work Phone: [facility] 07-05-2023 12:58-0400 Body temperature 97.7 [degF] Susannah Clemente MD Work Phone: [facility] 07-05-2023 12:58-0400 Body weight 60.44 kg Susannah Clemente MD Work Phone: [facility] 07-05-2023 12:58-0400 Heart rate 78 /min Susannah Clemente MD Work Phone: [facility] 07-05-2023 12:58-0400 SaO2% (BldA) [Mass fraction] 97 % Susannah Clemente MD Work Phone: [facility] 03-23-2023 16:27-0400 Body height 167.6 cm Susannah Clemente MD Work Phone: [facility] 03-23-2023 16:27-0400 Body temperature 98.2 [degF] uSsannah Clemente MD Work Phone: [facility] 03-23-2023 16:27-0400 Body weight 59.42 kg Susannah Clemente MD Work Phone: [facility] 03-23-2023 16:27-0400 Diastolic blood pressure 62 mm[Hg] Susannah Clemente MD Work Phone: [facility] 03-23-2023 16:27-0400 Heart rate 75 /min Susannah Clemente MD Work Phone: [facility] 03-23-2023 16:27-0400 SaO2% (BldA) [Mass fraction] 96 % Susannah Clemente MD Work Phone: [facility] 03-23-2023 16:27-0400 Systolic blood pressure 130 mm[Hg] Susannah Clemente MD Work Phone: [facility] 01-30-2023 09:47-0400 Body temperature 97.59 [degF] Kelsi Zavala MAJOR ASSEMBLY [employer]EM[employer].POWER SYSTEM ENGINEER Work Phone: [facility] 01-30-2023 09:47-0400 Body weight 60.78 kg Kelsi Zavala MAJOR ASSEMBLY [employer]EM[employer].POWER SYSTEM ENGINEER Work Phone: [facility] 01-30-2023 09:47-0400 Diastolic blood pressure 80 mm[Hg] Kelsi Zavala MAJOR ASSEMBL[employer].POWER SYSTEM ENGINEER Work Phone: [facility] 01-30-2023 09:47-0400 Heart rate 82 /min Kelsi Zavala MAJOR ASSEMBLY [employer]EM[employer].POWER SYSTEM ENGINEER Work Phone: [facility] 01-30-2023 09:47-0400 Respiratory rate 16 /min Kelsi Zavala MAJOR ASSEMBLY [employer].POWER SYSTEM ENGINEER Work Phone: [facility] 01-30-2023 09:47-0400 SaO2% (BldA) [Mass fraction] 96 % Kelsi Zavala MAJOR ASSEMBLY [employer].POWER SYSTEM ENGINEER Work Phone: [facility] 01-30-2023 09:47-0400 Systolic blood pressure 144 mm[Hg] Kelsi Zavala MAJOR ASSEMBL[employer].POWER SYSTEM ENGINEER Work Phone: [facility] 11-20-2022 11:00-0500 Body height 167.6 cm Le Reay MAJOR ASSEMBLY [employer]EM[employer].POWER SYSTEM ENGINEER Work Phone: [facility] 11-20-2022 11:00-0500 Body weight 61.92 kg Le Reay MAJOR ASSEMBLY [employer].POWER SYSTEM ENGINEER Work Phone: [facility] 11-20-2022 11:00-0500 Diastolic blood pressure 68 mm[Hg] Le Reay MAJOR ASSEMBLY [employer].POWER SYSTEM ENGINEER Work Phone: [facility] 11-20-2022 11:00-0500 Heart rate 76 /min Le Reay MAJOR ASSEMBLY [employer].POWER SYSTEM ENGINEER Work Phone: [facility] 11-20-2022 11:00-0500 SaO2% (BldA) [Mass fraction] 95 % Le Reay MAJOR ASSEMBLY [employer]EMAN.POWER SYSTEM ENGINEER Work Phone: [facility] 11-20-2022 11:00-0500 Systolic blood pressure 137 mm[Hg] Le Reay MAJOR ASSEMBLY [employer].POWER SYSTEM ENGINEER Work Phone: [facility] 10-05-2022 15:00-0500 Body temperature 97.2 [degF] Ramandeep Bogner PA-C Work Phone: [facility] 10-05-2022 15:00-0500 Body weight 60.24 kg Ramandeep Bogner PA-C Work Phone: [facility] 10-05-2022 15:00-0500 Diastolic blood pressure 84 mm[Hg] Ramandeep Bogner PA-C Work Phone: [facility] 10-05-2022 15:00-0500 Heart rate 81 /min Ramandeep Bogner PA-C Work Phone: [facility] 10-05-2022 15:00-0500 Respiratory rate 20 /min Ramandeep Bogner PA-C Work Phone: [facility] 10-05-2022 15:00-0500 SaO2% (BldA) [Mass fraction] 97 % Ramandeep Bogner PA-C Work Phone: [facility] 10-05-2022 15:00-0500 Systolic blood pressure 162 mm[Hg] Ramandeep Bogner PA-C Work Phone: [facility] 10-01-2022 17:18-0500 Diastolic blood pressure 60 mm[Hg] Susannah Clemente MD Work Phone: [facility] 10-01-2022 17:18-0500 Systolic blood pressure 100 mm[Hg] Susannah Clemente MD Work Phone: [facility] 10-01-2022 14:24-0500 Body temperature 98.01 [degF] Susannah Clemente MD Work Phone: [facility] 10-01-2022 14:24-0500 Body weight 60.22 kg Susannah Clemente MD Work Phone: [facility] 10-01-2022 14:24-0500 Heart rate 94 /min Susannah Clemente MD Work Phone: [facility] 10-01-2022 14:24-0500 SaO2% (BldA) [Mass fraction] 96 % Susannah Clemente MD Work Phone: [facility] 09-02-2022 13:33-0500 Body height 168.9 cm Paul Bautista MD Work Phone: [facility] 09-02-2022 13:33-0500 Body weight 60.33 kg Paul Bautista MD Work Phone: [facility] 09-02-2022 13:33-0500 Diastolic blood pressure 75 mm[Hg] Paul Bautista MD Work Phone: [facility] 09-02-2022 13:33-0500 Heart rate 70 /min Paul Bautista MD Work Phone: [facility] 09-02-2022 13:33-0500 Respiratory rate 15 /min Paul Bautista MD Work Phone: [facility] 09-02-2022 13:33-0500 SaO2% (BldA) [Mass fraction] 97 % Paul Bautista MD Work Phone: [facility] 09-02-2022 13:33-0500 Systolic blood pressure 154 mm[Hg] Paul Bautista MD Work Phone: [facility] 07-16-2022 11:54-0400 Diastolic blood pressure 77 mm[Hg] Susannah Clemente MD Work Phone: [facility] 07-16-2022 11:54-0400 Systolic blood pressure 177 mm[Hg] Susannah Clemente MD Work Phone: [facility] 07-16-2022 11:37-0400 Body temperature 98.01 [degF] Susannah Clemente MD Work Phone: [facility] 07-16-2022 11:37-0400 Body weight 62.26 kg Susannah Clemente MD Work Phone: [facility] 07-16-2022 11:37-0400 Heart rate 68 /min Susannah Clemente MD Work Phone: [facility] 07-16-2022 11:37-0400 SaO2% (BldA) [Mass fraction] 97 % Susannah Clemente MD Work Phone: [facility] 05-18-2022 09:46-0400 Body height 167.6 cm Paul Bautista MD Work Phone: [facility] 05-18-2022 09:46-0400 Body weight 62.32 kg Paul Bautista MD Work Phone: [facility] 05-18-2022 09:46-0400 Diastolic blood pressure 89 mm[Hg] Paul Bautista MD Work Phone: [facility] 05-18-2022 09:46-0400 Heart rate 64 /min Paul Bautista MD Work Phone: [facility] 05-18-2022 09:46-0400 SaO2% (BldA) [Mass fraction] 99 % Paul Bautista MD Work Phone: [facility] 05-18-2022 09:46-0400 Systolic blood pressure 187 mm[Hg] Paul Bautista MD Work Phone: [facility] 05-14-2022 10:28-0400 Body height 167.6 cm Michelle Choudhary MD Work Phone: [facility] 05-14-2022 10:28-0400 Body weight 63.41 kg Michelle Choudhary MD Work Phone: [facility] 05-14-2022 10:28-0400 Diastolic blood pressure 81 mm[Hg] Michelle Choudhary MD Work Phone: [facility] 05-14-2022 10:28-0400 Heart rate 70 /min Michelle Choudhary MD Work Phone: [facility] 05-14-2022 10:28-0400 Systolic blood pressure 176 mm[Hg] Michelle Choudhary MD Work Phone: [facility] 04-17-2022 11:00-0400 Body height 166 cm Rosendo Rodgers MD Work Phone: [facility] 04-17-2022 11:00-0400 Body temperature 97.2 [degF] Rosendo Rodgers MD Work Phone: [facility] 04-17-2022 11:00-0400 Body weight 60.78 kg Rosendo Rodgers MD Work Phone: [facility] 04-17-2022 11:00-0400 Diastolic blood pressure 65 mm[Hg] Rosendo Rodgers MD Work Phone: [facility] 04-17-2022 11:00-0400 Heart rate 76 /min Rosendo Rodgers MD Work Phone: [facility] 04-17-2022 11:00-0400 Respiratory rate 20 /min Rosendo Rodgers MD Work Phone: [facility] 04-17-2022 11:00-0400 SaO2% (BldA) [Mass fraction] 98 % Rosendo Rodgers MD Work Phone: [facility] 04-17-2022 11:00-0400 Systolic blood pressure 134 mm[Hg] Rosendo Rodgers MD Work Phone: [facility] 04-14-2022 11:40-0400 Diastolic blood pressure 97 mm[Hg] Susannah Clemente MD Work Phone: [facility] 04-14-2022 11:40-0400 Systolic blood pressure 171 mm[Hg] Susannah Clemente MD Work Phone: [facility] 04-14-2022 11:23-0400 Body height 166.4 cm Susannah Clemente MD Work Phone: [facility] 04-14-2022 11:23-0400 Body temperature 97.81 [degF] Susannah Clemente MD Work Phone: [facility] 04-14-2022 11:23-0400 Body weight 61.24 kg Susannah Clemente MD Work Phone: [facility] 04-14-2022 11:23-0400 Heart rate 80 /min Susannah Clemente MD Work Phone: [facility] 04-14-2022 11:23-0400 SaO2% (BldA) [Mass fraction] 97 % Susannah Clemente MD Work Phone: [facility] Encounters Encounter Date Encounter Type Care Provider Facility Start: 04-09-2025 Evaluation and management of inpatient Dr. Migel Godoy DO -[facility] Work Phone: Start: 04-04-2025 End: 04-04-2025 Telephone encounter Paul Bautista MD Work Phone: Cardiology Comment on above: Nm Pet Request Start: 04-03-2025 End: 04-03-2025 Patient encounter procedure Paul Bautista MD Work Phone: Cardiology Comment on above: Chronic diastolic (c ongestive) heart failure (HCC) (Primary Dx); Encounter for screening for cardiovascular disorders; Angina pectoris; Stage 3b chronic kidney disease (HCC) Start: 04-03-2025 End: 04-03-2025 ambulatory PAUL BAUTISTA Facility:[facility] Start: 04-03-2025 End: 04-03-2025 ambulatory PAUL BAUTISTA Facility:[facility] Start: 04-02-2025 End: 04-05-2025 Telephone encounter Susannah Clemente MD Work Phone: [facility] Comment on above: Forms ([facility]) Start: 03-27-2025 End: 03-27-2025 ambulatory SUSANNAH CLEMENTE Facility:[facility] Start: 03-27-2025 End: 03-27-2025 Patient encounter procedure Susannah Clemente MD Work Phone: [facility] Comment on above: Atherosclerosis of n ative coronary artery of [place] heart without angina pectoris (Primary Dx); Chronic [...] Start: 02-01-2025 End: 02-01-2025 ambulatory SUSANNAH CLEMENTE Facility:[facility] Start: 02-01-2025 End: 02-05-2025 Follow-up encounter Susannah Clemente MD Work Phone: [facility] Comment on above: Results Start: 01-27-2025 End: 01-29-2025 ambulatory Susannah Clemente MD Work Phone: [facility] Comment on above: Schedule for blood t ests Start: 01-15-2025 End: 01-19-2025 Telephone encounter Susannah Clemente MD Work Phone: [facility] Comment on above: Orders ([facility]) Start: 01-05-2025 End: 01-09-2025 Refill Susannah Clemente MD Work Phone: [facility] Comment on above: Refill Request Start: 11-17-2024 End: 11-17-2024 ambulatory SUSANNAH CLEMENTE Facility:[facility] Start: 11-15-2024 End: 11-16-2024 Telephone encounter Susannah Clemente MD Work Phone: [facility] Start: 10-24-2024 End: 10-24-2024 Telephone encounter Susannah Clemente MD Work Phone: [facility] Comment on above: Orders; Appointment Start: 10-08-2024 End: 10-09-2024 Refill Susannah Clemente MD Work Phone: [facility] Comment on above: Refill Request Start: 09-13-2024 End: 09-13-2024 Orders Only Paul Bautista MD Work Phone: Cardiology Comment on above: Chronic diastolic (c ongestive) heart failure (HCC) (Primary Dx) Start: 08-29-2024 End: 08-30-2024 Refill Susannah Clemente MD Work Phone: [facility] Comment on above: Refill Request Start: 07-27-2024 End: 07-27-2024 ambulatory SUSANNAH CLEMENTE Facility:[facility] Start: 07-26-2024 End: 07-26-2024 ambulatory MICHELLE CHOUDHARY Facility:[facility] Start: 07-26-2024 End: 08-01-2024 Patient encounter procedure Michelle Choudhary MD Work Phone: Dermatology Comment on above: Neoplasm of unspecif ied behavior of bone, soft tissue, and skin (Primary Dx); Telogen effluvium; Seborrheic dermatitis; Hx of nonmelanoma skin cancer; Photoaging of skin; Personal history of malignant neoplasm of breast; Chronic diastolic (congestive) heart failure (HCC) Start: 07-17-2024 End: 07-17-2024 ambulatory SUSANNAH CLEMENTE Facility:[facility] Start: 07-17-2024 End: 07-17-2024 Patient encounter procedure Dominguez Harkins MD Work Phone: [facility] Comment on above: Urgency of urination (Primary Dx) Start: 07-14-2024 End: 07-14-2024 ambulatory SUSANNAH CLEMENTE Facility:[facility] Start: 07-14-2024 End: 07-14-2024 Subsequent hospital visit by physician Bharati [facility] Work Phone: Radiology Comment on above: Exertional dyspnea [ R06.09] Start: 07-13-2024 End: 07-13-2024 ambulatory ERWIN ROSALES Facility:[facility] Start: 07-13-2024 End: 07-13-2024 Patient encounter procedure Erwin Rosales MD Work Phone: [facility] Comment on above: 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 Breathing Problem Start: 07-03-2024 End: 07-03-2024 Telephone encounter Susannah Clemente MD Work Phone: [facility] Comment on above: Patient Question (No thing was available for medicare wellness until February, AVS said to see in 4 months, offered patient to schedule with Ruby, she did not want to, wanted to know if scheduling her for February was okay with you? 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 4 chronic kidney disease, or chronic kidney disease (HCC) (Primary Dx); Exertional dyspnea; Acute cystitis without hematuria Start: 06-26-2024 End: 06-26-2024 Office outpatient visit 15 minutes Emilee Crump MAJOR ASSEMBLY LINEMAN.POWER SYSTEM ENGINEER Work Phone: [facility] Comment on above: Urinary frequency (P rimary Dx) Start: 06-26-2024 End: 06-26-2024 ambulatory Susannah Clemente MD Work Phone: [facility] Comment on above: burning and pressure with urination Start: 06-24-2024 End: 06-24-2024 ambulatory SUSANNAH CLEMENTE Facility:[facility] Start: 06-11-2024 End: 06-11-2024 ambulatory SUSANNAH CLEMENTE Facility:[facility] Start: 06-11-2024 End: 06-11-2024 Patient encounter procedure Kelsi Zavala APRN.POWER SYSTEM ENGINEER Work Phone: [email or web address] Comment on above: Cellulitis of left a rm (Primary Dx) Start: 05-30-2024 End: 05-30-2024 ambulatory [facility] WENDI WORCESTERROBIN Facility:[facility] Start: 05-16-2024 End: 05-16-2024 ambulatory [facility] Facility:[facility] Start: 05-15-2024 Refill Susannah buchanan MD Work Phone: [facility] Comment on above: Refill Request Start: 05-14-2024 ambulatory Susannah bucahnan MD Work Phone: [facility] Comment on above: Ondansetron ODT 4mg Refill Request Start: 05-03-2024 End: 05-03-2024 ambulatory ABENA BUSTILLOS Facility:[facility] Start: 04-10-2024 Telephone encounter Susannah Clemente MD Work Phone: [facility] Start: 04-08-2024 ambulatory Susannah buchanan MD Work Phone: [facility] Comment on above: Blood Pressure numbe rs Start: 03-30-2024 End: 03-30-2024 Patient encounter procedure Paul Bautista MD Work Phone: Cardiology Comment on above: Chronic diastolic (c ongestive) heart failure (HCC) (Primary Dx) Start: 03-28-2024 End: 03-28-2024 Office outpatient visit 25 minutes Susannah Clemente MD Work Phone: [facility] [place] Comment on above: Situational depressi on (Primary Dx); Cerebral microvascular disease; Essential hypertension; Epigastric abdominal tenderness without rebound tenderness; 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 disease, or chronic kidney disease (HCC); Collagenous colitis; 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) Start: 03-13-2024 Refill Susannah buchanan MD Work Phone: [facility] [place] Comment on above: Refill Request Start: 01-26-2024 End: 01-26-2024 Patient encounter procedure Virgil Gomez MD Work Phone: Gastroenterology Comment on above: Pancreatic cyst (Monik cristina Dx); Collagenous colitis Start: 01-17-2024 Refill Paul dawson MD Work Phone: Cardiology Comment on above: Rx Refills Start: 01-10-2024 Documentation procedure Mammog yang Coordinator [facility] Start: 01-10-2024 Letter encounter Mammography Coordinator [facility] Department Start: 01-07-2024 End: 01-07-2024 Patient [...] 01-03-2024 ambulatory Susannah buchanan MD Work Phone: [facility] Start: 01-03-2024 Patient encounter procedure Susannah Clemente MD Work Phone: [facility] [place] Comment on above: Consult to [facility] Start: 12-31-2023 Orders Only Alicia Escalona korey CAMPUZANO.POWER SYSTEM ENGINEER Work Phone: [facility] Comment on above: Encounter for screen ing mammogram for breast cancer (Primary Dx) Start: 12-31-2023 Refill Susannah buchanan MD Work Phone: [facility] [place] Comment on above: Refill Request Start: 12-20-2023 ambulatory Susannah buchanan MD Work Phone: [facility] [place] Comment on above: Mammogram schedule Start: 11-06-2023 End: 11-06-2023 Emergency department patient visit [facility] Work Phone: Start: 10-18-2023 End: 09-06-2024 Telephone encounter Virgil Gomez MD Work Phone: Gastroenterology Start: 10-07-2023 Refill Susannah buchanan MD Work Phone: [facility] [place] Comment on above: Refill Request (Clon idine and Labetalol) Start: 09-30-2023 End: 09-30-2023 Patient encounter procedure Paul Bautista MD Work Phone: Cardiology Comment on above: Chronic diastolic (c ongestive) heart failure (HCC) (Primary Dx); Stage 3a chronic kidney disease (HCC) Start: 09-20-2023 ambulatory Migel Ayers ms PA-C Work Phone: [facility] [place] Comment on above: Physical therapy Start: 09-10-2023 End: 09-10-2023 ambulatory Liam Bull PT Work Phone: [facility] Comment on above: Chronic thoracic [place] pain, unspecified back pain laterality (Primary Dx); Degenerative scoliosis in adult patient; 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 Start: 09-08-2023 End: 09-08-2023 ambulatory Shalini Lopez [facility] Work Phone: [facility] Comment on above: Chronic diastolic (c ongestive) heart failure (HCC) (Primary Dx) Start: 09-08-2023 End: 09-08-2023 Telemedicine consultation with patient Shalini Lopez [facility] Work Phone: [facility] Start: 09-02-2023 ambulatory Nadja Wylie Gladissumaya Kayla [facility] Comment on above: Population Health Na vigation Outreach (SGLT2) Start: 08-30-2023 End: 08-30-2023 ambulatory Liam Bull PT Work Phone: [place] [facility] Physical [facility] Comment on above: Chronic thoracic [place] pain, unspecified back pain laterality (Primary Dx); 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; Degenerative scoliosis in adult patient Start: 08-21-2023 End: 08-21-2023 ambulatory [facility] Work Phone: [facility] Comment on above: Arrived Start: 08-15-2023 Refill Michelle Choudhary MD Work Phone: Dermatology Comment on above: Refill Request Start: 08-06-2023 End: 08-06-2023 Patient encounter procedure Migel Garcia PA-C Work Phone: [facility] [place] Comment on above: 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 (Primary Dx); Degenerative scoliosis in adult patient; Chronic thoracic back pain, unspecified back pain laterality Start: 08-04-2023 End: 08-04-2023 Patient encounter procedure Bone 2 [facility] Start: 08-04-2023 End: 08-04-2023 Subsequent hospital visit by physician [facility] A21 2 Radiology Comment on above: Asymptomatic postmen opausal state [Z78.0] Start: 07-26-2023 End: 07-26-2023 Patient encounter procedure Cristina FINE Work Phone: Audiology Comment on above: Sensorineural hearin g loss, bilateral (Primary Dx) Start: 07-08-2023 End: 07-08-2023 Patient encounter procedure [facility] Work Phone: [facility] Start: 07-08-2023 End: 07-08-2023 Subsequent hospital visit by physician [facility] Work Phone: Nuclear Medicine Comment on above: Medicare annual well ness visit, subsequent [Z00.00] Start: 07-05-2023 Telephone encounter Susannah Clemente MD Work Phone: [facility] Start: 07-05-2023 End: 07-05-2023 Patient encounter procedure Susannah Clemente MD Work Phone: [facility] Comment on above: Medicare annual well ness visit, subsequent (Primary Dx); Asymptomatic postmenopausal state; Thoracogenic scoliosis, unspecified spinal region; Chronic thoracic back pain, unspecified back pain laterality; Decreased hearing of both ears; Anemia due to stage 3b chronic kidney disease (HCC); Epigastric pain; Hypothyroidism, unspecified type Start: 04-08-2023 End: 04-08-2023 ambulatory Kelsi Souza PT [facility] Comment on above: Acute right-sided th oracic back pain (Primary Dx) Start: 04-02-2023 End: 04-02-2023 ambulatory Arrhythm[facility] Work Phone: Cardiology Comment on above: Event (ZIO PATCH) Start: 04-01-2023 End: 04-01-2023 Subsequent hospital visit by physician [facility] Work Phone: Radiology Comment on above: Epigastric abdominal tenderness without rebound tenderness [R10.816] Start: 03-23-2023 End: 03-23-2023 Office outpatient visit 15 minutes Susannah Clemente MD Work Phone: [facility] Comment on above: Rib pain on right si de (Primary Dx); Epigastric abdominal tenderness without rebound tenderness; Thoracogenic scoliosis, unspecified spinal region Start: 03-08-2023 ambulatory Susannah buchanan MD Work Phone: [facility] Comment on above: Back Pain ([place]) Start: 03-08-2023 End: 03-08-2023 Subsequent hospital visit by physician [facility] [place] [facility] Work Phone: Radiology Comment on above: Acute right-sided th oracic back pain [M54.6] Start: 02-20-2023 ambulatory Susannah buchanan MD Work Phone: [facility] [place] Comment on above: medical massages Start: 01-30-2023 End: 01-30-2023 Patient encounter procedure Kelsi Zavala MAJOR ASSEMBLY LINEMAN.POWER SYSTEM ENGINEER Work Phone: [facility] Comment on above: Difficulty swallowin g pills (Primary Dx); Pharyngitis, unspecified etiology Start: 01-15-2023 End: 01-15-2023 Subsequent hospital visit by physician Xr [facility] Work Phone: Radiology Comment on above: Exertional dyspnea [ R06.09] Start: 01-06-2023 Documentation procedure Mammog yang Coordinator [facility] Start: 01-06-2023 Letter encounter Mammography Coordinator [facility] Department Start: 01-05-2023 End: 01-05-2023 Patient encounter procedure Alicia Hylton MAJOR ASSEMBLY LINEMAN.POWER SYSTEM ENGINEER Work Phone: [facility] Comment on above: Fibrocystic breast c hanges [...] End: 11-20-2022 Patient encounter procedure Le Orourke MAJOR ASSEMBLY LINEMAN.POWER SYSTEM ENGINEER Work Phone: Cardiology Comment on above: Chronic heart failur e with preserved ejection fraction (HCC) (Primary Dx) Start: 10-29-2022 Telephone encounter Susannah Clemente MD Work Phone: [facility] [place] Comment on above: Results Start: 10-08-2022 Telephone encounter Sandhya Juan MCKEON Work Phone: [facility] Comment on above: Results Start: 10-08-2022 End: 10-08-2022 Subsequent hospital visit by physician [facility] Work Phone: Radiology Comment on above: Urinary retention [R 33.9] Start: 10-05-2022 End: 10-05-2022 Office outpatient visit 15 minutes Ramandeep Nieto PA-C Work Phone: [facility] Comment on above: Pain with urination (Primary Dx) Start: 10-01-2022 End: 10-01-2022 Office outpatient visit 25 minutes Susannah Clemente MD Work Phone: [facility] [place] Comment on above: Stage 3 chronic kidn [...] Susannah buchanan MD Work Phone: [facility] [place] Comment on above: Anemia Start: 10-01-2022 E-mail encounter fro m caregiver Susannah Clemente MD Work Phone: [facility] Start: 09-14-2022 End: 09-14-2022 ambulatory Rosendo Rodgers MD Work Phone: Hematology/Oncology Comment on above: Anemia due to stage 3b chronic kidney disease (HCC) (Primary Dx) Start: 09-14-2022 End: 09-14-2022 Telemedicine consultation with patient Rosendo Rodgers MD Work Phone: [facility] Start: 09-09-2022 Telephone encounter Rosendo watkins MD Work Phone: Hematology/Oncology Comment on above: Lab Orders; Care Spindle Setter rdinator - Other Start: 09-02-2022 End: 09-02-2022 Patient encounter procedure Paul Bautista MD Work Phone: Cardiology Comment on above: Chronic heart failur e with preserved ejection fraction (HFpEF) (HCC) (Primary Dx); Essential hypertension Start: 08-08-2022 End: 08-08-2022 ambulatory Immunization Clinic Nurse Fam Work Phone: [facility] Medicine [facility]am Comment on above: Arrived Start: 08-06-2022 Telephone encounter Tara rosales MD Work Phone: Allergy Comment on above: Refill Request Start: 07-22-2022 Refill Michelle Choudhary MD Work Phone: Dermatology Start: 07-16-2022 End: 07-16-2022 Office outpatient visit 15 minutes Susannah Clemente MD Work Phone: [facility] [place] Comment on above: Encounter for immuni zation (Primary Dx); 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 disease, or chronic kidney disease (HCC) Start: 06-01-2022 ambulatory Dennys Guzman MD Work Phone: Kidney Medicine [facility] Start: 06-01-2022 Patient encounter procedure Dennys Guzman MD Work Phone: [facility] Start: 2022 ambulatory Paul dawson MD Work [...] encounter procedure Rosendo Rodgers MD Work Phone: [facility] Start: 04-14-2022 End: 04-14-2022 Patient encounter procedure Susannah Clemente MD Work Phone: [facility] [place] Comment on above: Anemia, unspecified type (Primary [...] encounter Susannah Clemente MD Work Phone: [facility] Comment on above: Results Start: 02-17-2022 End: 02-17-2022 Nursing evaluation of patient and report Leigh Abreu RN Work Phone: Orthopaedics Comment on above: Primary osteoarthrit is of first carpometacarpal joint of left hand (Primary Dx) Start: 02-10-2022 End: 02-10-2022 ambulatory Kelsi Rosa OT/L Work Phone: [facility] Occupational Therapy Comment on above: Thumb pain, left (Pr imary Dx); Primary osteoarthritis of first carpometacarpal joint of left hand Start: 02-03-2022 End: 02-03-2022 ambulatory Laverne Helms OT/L Work Phone: [facility] Occupational Therapy Comment on above: Thumb pain, left (Pr imary Dx); Primary osteoarthritis of first carpometacarpal joint of left hand Start: 01-27-2022 End: 01-27-2022 ambulatory Laverne Helms OT/L Work Phone: [facility] Comment on above: Thumb pain, left (Pr imary Dx); NO SHOW Start: 01-20-2022 End: 01-20-2022 ambulatory Kelsi Rosa OT/L Work Phone: [facility] Occupational Therapy Comment on above: Thumb pain, [...] 12-24-2020 Subsequent hospital visit by physician Xr [facility]am Work Phone: Radiology Comment on above: Left wrist pain [M25 .532] Start: 07-30-2020 End: 07-30-2020 Subsequent hospital visit by physician Clinic Imaging [facility] Work Phone: Mammography Comment on above: Fibrocystic breast c hanges of both breasts [N60.11, N60.12] Start: 08-26-2018 Ambulatory SCOTTY BERRY Facility :[facility] Start: 02-07-2018 End: 02-07-2018 Ambulatory SCOTTY BERRY [facility] Start: 08-26-2017 End: 08-26-2017 Ambulatory SCOTTY BERRY [facility] Start: 10-05-2011 End: 09-19-2020 Patient encounter status Susannah Clemente MD Work Phone: [facility] Procedures Date Procedure Procedure Detail Performing Clinician Start: 04-09-2025 Plain chest X-ray Dr. Megan Clemente MD Work Phone: Start: 04-09-[address] Susannah Clemente MD Work Phone: Start: 04-03-2025 Echo tthrc r-t 2d w/wom-mode compl spec&colr d Paul Bautista MD Work Phone: Start: 07-26-2024 Level iv surg pathol ogy gross&microscopic exam Joanie House MD Work Phone: Start: 07-17-2024 Urnls dip stick/tabl et rgnt auto w/o microscopy Johan Brantley MAJOR ASSEMBLY LINEMAN.POWER SYSTEM ENGINEER Work Phone: Start: 07-14-2024 Radiologic exam ches t 2 views Susannah Clemente MD Work Phone: Start: 07-03-2024 Ecg routine ecg w/le ast 12 lds i&r only [facility] Provider Start: 06-26-2024 Urnls dip stick/tabl et rgnt auto w/o microscopy Emilee Crump MAJOR ASSEMBLY LINEMAN.POWER SYSTEM ENGINEER Work Phone: Start: 03-28-2024 Adult depression scr eening assessment Susannah Clemente MD Work Phone: Start: 01-07-2024 Screening digital br east tomosynthesis bi Alicia Hylton MAJOR ASSEMBLY LINEMAN.POWER SYSTEM ENGINEER Work Phone: Start: 11-06-2023 SARS-CoV-2, Influenz a & RSV (PCR) Start: 11-06-2023 Plain chest X-ray Start: 08-21-2023 INFLUENZA VACCINE, A GE 6 MO - 64 YR, QUADRIVALENT (AFLURIA, FLULAVAL, FLUZONE) Fadi Martinez MD Work Phone: Start: 07-26-2023 HEARING TEST/AUDIOGRAM Cristinascott Lara RODY Work Phone: Start: 07-08-2023 Hepatobil syst imag inc gb w/pharma intervenj Susannah Clemente MD Work Phone: Start: 04-01-2023 Us abdominal real ti me w/image limited Susannah Clemente MD Work Phone: Start: 03-08-2023 Radex ribs uni w/pos teroant ch minimum 3 views Susannah lCemente MD Work Phone: Start: 01-15-2023 Radiologic exam ches t 2 views Susannah Clemente MD Work Phone: Start: 01-05-2023 NICOLE SCREENING W MICHELLE Joan izabel Hylton MAJOR ASSEMBLY LINEMAN.POWER SYSTEM ENGINEER Work Phone: Start: 11-24-2022 Injection 1 tendon [...] DTaP,Tdap,Td Vaccine (3 - Td or Tdap) [facility] Start: 02-02-2028 Diabetes Screening Diabetes Screening [facility] Start: 06-24-2027 Diabetes Screening Diabetes Screening [facility] Start: 11-02-2026 Diabetes Screening Diabetes Screening [facility] Start: 04-26-2026 DIABETES SCREEN DIABETES SCREEN [facility] Start: 04-26-2026 Diabetes Screening Diabetes Screening [facility] Start: 03-27-2026 Medicare Annual Wellness Visit Medicare Annual Wellness Visit [facility] Start: 01-08-2026 DIABETES SCREEN DIABETES SCREEN [facility] Start: 10-04-2025 End: 10-04-2025 Patient encounter procedure 10/04/2025 11:30 AM EST Office Visit Cardiology [address] [place] [address] Paul Bautista MD [address] [place] [address] DX: Chronic diastolic HF Cardiology Comment on above: DX: Chronic diastolic HF Start: 10-02-2025 End: 10-02-2025 Patient encounter procedure 10/02/2025 12:50 PM EST Office Visit [facility] [address] [place], [place] [address] Susannah Clemente MD [address] [place], [place] [id number] Return in about 6 months (around 09/26/2025). [facility] [place] Comment on above: Return in about 6 months (around 025). Start: 09-11-2025 DIABETES SCREEN DIABETES SCREEN [facility] Start: 07-19-2025 End: 07-19-2025 Patient encounter procedure 07/19/2025 11:30 AM EDT Office Visit Gastroenterology [address] [address] Virgil Gomez MD [address] [place] [address] Epigastric pain [R10.13] Gastroenterology Comment on above: Epigastric pain [R10.13] Start: 06-24-2025 Hepatitis B surface antibody level LDL Cholesterol [facility] Start: 06-22-2025 End: 06-22-2025 Patient encounter procedure [facility] Comment on above: Annual breast exam Start: 06-07-2025 End: 06-07-2025 Patient encounter procedure 06/07/2025 11:00 AM EDT Office Visit Audiology [address] [address] Isa Hartman, AUD [address] [place] [address] 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] Audiology Comment on above: 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] Start: 06-01-2025 DIABETES SCREEN DIABETES SCREEN [facility] Start: 2025 End: 2025 Patient encounter procedure Radiology Comment on above: increasing sharp pain right hand Start: 05-21-2025 DIABETES SCREEN DIABETES SCREEN [facility] Start: 04-24-2025 End: 04-24-2025 Patient encounter procedure 04/24/2025 11:00 AM EDT Appointment Radiology [address] [place] [address] Epigastric pain [R10.13] Radiology Comment on above: Epigastric pain [R10.13] Start: 04-13-2025 End: 04-13-2025 Patient encounter procedure 04/13/2025 4:00 PM EDT Office Visit Gastroenterology [address] [address] Virgil Gomez MD [address] [place], [place] [id number] Epigastric pain [R10.13] Gastroenterology Comment on above: Epigastric pain [R10.13] Start: 04-10-2025 [facility] Start: 04-09-2025 Electrocardiographic procedure [facility] Start: 04-09-2025 Admission procedure [facility] Start: 04-09-2025 Hospital admission, emergency, from emergency room, medical nature [facility] Start: 04-09-2025 End: 04-09-2025 [facility] Start: 04-07-2025 End: 04-07-2025 Patient encounter procedure 04/07/2025 11:00 AM EDT Office Visit [facility] [place] [address] [facility] [place] [id number] Susannah Clemente MD [address] [place] [address] medicare wellness [facility] [place] Comment on above: medicare wellness Start: 04-03-2025 End: 07-03-2025 Basic metabolic 2000 panel - Serum or Plasma BASIC METABOLIC PANEL Lab Routine Chronic diastolic (congestive) heart failure (HCC) Expected: 04/03/2025, Expires: 07/03/2025 [facility] Comment on above: Expected: 04/03/2025, Expires: Start: 04-03-2025 End: 07-03-2025 Natriuretic peptide.B prohormone N-Terminal [Mass/volume] in Serum or Plasma NT PRO BNP Lab Routine Chronic diastolic (congestive) heart failure (HCC) Expected: 04/03/2025, Expires: 07/03/2025 [facility] Work Phone: Comment on above: Expected: 04/03/2025, Expires: Start: 04-03-2025 End: 05-03-2026 PET+CT Heart WO contrast NM PET/CT CARDIAC PERF REST/STRESS Radiology Routine Encounter for screening for cardiovascular disorders Expected: 04/03/2025, Expires: 05/03/2026 [facility] Comment on above: Expected: 04/03/2025, Expires: 6 Start: 04-03-2025 End: 04-03-2025 Patient encounter procedure Cardiology Comment on above: Heart Failure Start: 03-30-2025 End: 03-30-2025 Echocardiography ECHO Cardiology Routine Chronic diastolic (congestive) heart failure (HCC) Expected: 03/30/2025, Expires: 03/30/2025 [facility] Work Phone: Comment on above: Expected: 03/30/2025, Expires: Start: 03-28-2025 Anxiety Screening Anxiety Screening [facility] Start: 03-28-2025 Depression Screening Depression Screening [facility] Start: 03-27-2025 End: 03-27-2025 Patient encounter procedure 03/27/2025 3:50 PM EDT Office Visit [facility] [address] [facility] [place] [id number] Susannah Clemente MD [address] [place], [place] [address] MEDICARE WELLNESS [facility] [place] Comment on above: MEDICARE WELLNESS Start: 03-27-2025 End: 06-26-2025 C reactive protein [Mass/volume] in Serum or Plasma by High sensitivity method HIGH SENSITIVITY C-REACTIVE PROTEIN Lab Routine Atherosclerosis of [place] coronary artery of [place] heart without angina pectoris Expected: 03/27/2025, Expires: 06/26/2025 [facility] Work Phone: Comment on above: Expected: 03/27/2025, Expires: Start: 02-20-2025 End: 02-20-2025 Patient encounter procedure Radiology Comment on above: increasing sharp pain right hand Start: 02-15-2025 End: 02-15-2025 Patient encounter procedure 02/15/2025 9:30 AM EDT Office Visit Internal [facility] [address] [place], [place] [phone] Susannah Clemente MD [address] [place], [place] [address] Return in about 4 months (around 11/02/2024) for Medicare Wellness. [facility] Comment on above: Return in about 4 months (around 11/02/19) for Medicare Wellness. Start: 01-16-2025 End: 01-16-2025 Patient encounter procedure 01/16/2025 9:50 AM EDT Office Visit Internal [facility] [address] [place], [place] [phone] Susannah Clemente MD [address] [place], [place] [phone] medicare wellness [facility] [place] Comment on above: medicare wellness Start: 11-15-2024 End: 02-14-2025 CBC W Auto Differential panel - Blood COMPLETE BLOOD COUNT AND DIFFERENTIAL Lab Routine 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) Expected: 11/15/2024, Expires: 02/14/2025 [facility] Work Phone: Comment on above: Expected: 11/15/2024, Expires: Start: 11-09-2024 End: 11-09-2024 Patient encounter procedure 11/09/2024 11:10 AM EST Office Visit [facility] [address] [place], [place] [phone] Susannah Clemente MD [address] [place], [place] [address] Return in about 4 months (around 11/02/2024) for Medicare Wellness. [facility] [place] Comment on above: Return in about 4 months (around 11/02/19) for Medicare Wellness. Start: 10-18-2024 Advance Directive Discussion Advance Directive Discussion [facility] Start: 07-27-2024 End: 07-27-2024 Patient encounter procedure 07/27/2024 10:30 AM EDT Office Visit Cardiology [address] [address] Exertional dyspnea [R06.09] Cardiology Comment on above: Exertional dyspnea [R06.09] Start: 07-26-2024 End: 07-26-2024 Patient encounter procedure 07/26/2024 1:50 PM EDT Office Visit Dermatology [address] [address] Michelle Choudhary MD [address] [place] [address] follow up Dermatology Comment on above: follow up Start: 07-14-2024 End: 07-14-2024 Patient encounter procedure 07/14/2024 9:30 AM EDT Appointment Radiology [address] [place] [address] XR CHEST 2V FRONTAL/LAT Radiology Comment on above: XR CHEST 2V FRONTAL/LAT Start: 07-12-2024 End: 07-12-2024 Patient encounter procedure 07/12/2024 9:10 AM EDT Office Visit [address] [place] [address] Beau Garcia MD [address] [place], [place] [id number] SOB twice [facility] Comment on above: SOB twice Start: 07-10-2024 End: 07-10-2024 Patient encounter procedure 07/10/2024 11:00 AM EDT Office Visit [address] [id number] Susannah Clemente MD [address] [place] [address] f/u [facility] Comment on above: f/u Start: 07-03-2024 End: 07-03-2024 Patient encounter procedure 07/03/2024 10:20 AM EDT Office Visit [address] [address] Susannah Clemente MD [address] [place], [place] [address] f/u [facility] Comment on above: f/u Start: 06-28-2024 End: 09-27-2024 Basic metabolic 2000 panel - Serum or Plasma BASIC METABOLIC PANEL Lab Routine Essential hypertension 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) Expected: 06/28/2024, Expires: 09/27/2024 [facility] Comment on above: Expected: 06/28/2024, Expires: Start: 06-28-2024 End: 09-27-2024 Lipid 1996 panel - Serum or Plasma LIPID PANEL BASIC Lab Routine Cerebral microvascular disease Expected: 06/28/2024, Expires: 09/27/2024 [facility] Work Phone: Comment on above: Expected: 06/28/2024, Expires: Start: 06-26-2024 End: 09-25-2024 Bacteria identified in Urine by Culture [facility] Work Phone: Comment on above: Expected: 06/26/2024, Expires: Ordered: 06/26/2024 Start: 06-18-2024 Covid-19 Vaccine () Covid-19 Vaccine () [facility] Start: 06-18-2024 Covid-19 Vaccine () Covid-19 Vaccine () [facility] Start: 06-18-2024 Influenza vaccination Influ[facility] Start: 04-12-2024 Hepatitis B surface antibody level LDL CHOLESTEROL [facility] Start: 03-31-2024 Orders Only 03/31/2024 Orders Only Cardiology [address] [id number] Paul Bautista MD [address] [place] [address] Cardiology Start: 03-30-2024 End: 03-30-2024 Patient encounter procedure 03/30/2024 2:45 PM EDT Office Visit Cardiology [address] [place] [address] Paul Bautista MD [address] [place], [place] [phone] Main, Nurse Card [facility] [address] [place] [address] Dx: Chronic diastolic (congestive) heart failure (HCC) [I50.32 (ICD-10-CM)] Cardiology Comment on above: Dx: Chronic diastolic (congestive) heart failure (HCC) [I50.32 (ICD-10-CM)] Start: 03-28-2024 End: 03-28-2024 Patient encounter procedure 03/28/2024 3:50 PM EDT Office Visit Internal Medicine [address] [address] Susannah Clemente MD [address] [facility] [place] [address] Return in about 4 months (around 03/16/2024). [facility] [place] Comment on above: Return in about 4 months (around 03/16/20). Start: 03-19-2024 DIABETES SCREEN DIABETES SCREEN [facility] Start: 01-15-2024 Covid-19 Vaccine () Covid-19 Vaccine () [facility] Start: 11-06-2023 [facility] Start: 11-06-2023 End: 11-06-2023 [facility] Start: 10-18-2023 Behavioral Health Screening Behavioral Health Screening [facility] Start: 09-30-2023 End: 12-30-2023 Basic metabolic 2000 panel - Serum or Plasma BASIC METABOLIC PNL Lab Routine Chronic diastolic (congestive) heart failure (HCC) Expected: 09/30/2023, Expires: 12/30/2023 [facility] Work Phone: Comment on above: Expected: 09/30/2023, Expires: 4 Start: 09-30-2023 End: 12-30-2023 Natriuretic peptide.B prohormone N-Terminal [Mass/volume] in Serum or Plasma NT PRO BNP Lab Routine Chronic diastolic (congestive) heart failure (HCC) Expected: 09/30/2023, Expires: 12/30/2023 [facility] Work Phone: Comment on above: Expected: 09/30/2023, Expires: 4 Start: 07-05-2023 End: 09-04-2023 Thyrotropin [Units/volume] in Serum or Plasma TSH BLD Lab Routine Hypothyroidism, unspecified type Expected: 07/05/2023, Expires: 09/04/2023 [facility] Work Phone: Comment on above: Expected: 07/05/2023, Expires: 3 Start: 06-18-2023 Covid-19 Vaccine ( season) Covid-19 Vaccine () [facility] Start: 06-18-2023 Influenza vaccination [facility] Start: 04-02-2023 End: 11-20-2023 Echocardiography ECHO Cardiology Routine Chronic heart failure with preserved ejection fraction (HCC) Expected: 04/02/2023, Expires: 11/20/2023 [facility] Work Phone: Comment on above: Expected: 04/02/2023, Expires: 4 Start: 01-12-2023 End: 03-14-2023 Basic metabolic 2000 panel - Serum or Plasma BASIC METABOLIC PNL Lab Routine Chronic heart failure with preserved ejection fraction (HCC) Expected: 01/12/2023, Expires: 03/14/2023 [facility] Work Phone: Comment on above: Expected: 01/12/2023, Expires: 3 Start: 01-12-2023 End: 03-14-2023 Natriuretic peptide.B prohormone N-Terminal [Mass/volume] in Serum or Plasma NT PRO BNP Lab STAT Chronic heart failure with preserved ejection fraction (HCC) Expected: 01/12/2023, Expires: 03/14/2023 [facility] Work Phone: Comment on above: Expected: 01/12/2023, Expires: 3 Start: 12-30-2022 End: 03-01-2023 Basic metabolic 2000 panel - Serum or Plasma BASIC METABOLIC PNL Lab Routine Stage 3 chronic kidney disease, unspecified whether stage 3a or 3b CKD (HCC) Expected: 12/30/2022, Expires: 03/01/2023 [facility] Work Phone: Comment on above: Expected: 12/30/2022, Expires: 3 Start: 12-08-2022 Hepatitis B surface antibody level LDL CHOLESTEROL [facility] Start: 11-15-2022 COVID-19 VACCINE (5 - Moderna series) COVID-19 VACCINE (5 - Moderna series) [facility] Start: 10-18-2022 ADVANCE DIRECTIVE DISCUSSION ADVANCE DIRECTIVE DISCUSSION [facility] Start: 10-18-2022 DEPRESSION ASSESSMENT DEPRESSION ASSESSMENT [facility] Start: 09-11-2022 End: 11-11-2022 Ferritin [Mass/volume] in Serum or Plasma [facility] Work Phone: Comment on above: Expected: 09/11/2022, Expires: 3 Start: 09-11-2022 End: 11-11-2022 Iron and Iron binding capacity panel - Serum or Plasma [facility] Work Phone: Comment on above: Expected: 09/11/2022, Expires: 3 Start: 09-02-2022 End: 11-02-2022 Basic metabolic 2000 panel - Serum or Plasma BASIC METABOLIC PNL Lab Routine Chronic heart failure with preserved ejection fraction (HFpEF) (HCC) Expected: 09/02/2022, Expires: 11/02/2022 [facility] Work Phone: Comment on above: Expected: 09/02/2022, Expires: 3 Start: 09-02-2022 End: 11-02-2022 Natriuretic peptide.B prohormone N-Terminal [Mass/volume] in Serum or Plasma NT PRO BNP Lab Routine Chronic heart failure with preserved ejection fraction (HFpEF) (HCC) Expected: 09/02/2022, Expires: 11/02/2022 [facility] Work Phone: Comment on above: Expected: 09/02/2022, Expires: 3 Start: 08-15-2022 End: 10-15-2022 Basic metabolic 2000 panel - Serum or Plasma BASIC METABOLIC PNL Lab Routine 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 disease, or chronic kidney disease (HCC) Expected: 08/15/2022, Expires: 10/15/2022 [facility] Work Phone: Comment on above: Expected: 08/15/2022, Expires: 2 Start: 08-15-2022 Urine microalbumin profile [facility] Start: 06-18-2022 Influenza vaccination INFLUENZA (#1) [facility] Start: 06-14-2022 End: 08-14-2022 Thyrotropin [Units/volume] in Serum or Plasma TSH BLD Lab Routine Hypothyroidism, unspecified type Expected: 06/14/2022, Expires: 08/14/2022 [facility] Work Phone: Comment on above: Expected: 06/14/2022, Expires: 2 Start: 2022 End: 07-29-2022 Basic metabolic 2000 panel - Serum or Plasma BASIC METABOLIC PNL Lab Routine Chronic heart failure with preserved ejection fraction (HFpEF) (HCC) Expected: 2022, Expires: 07/29/2022 [facility] Work Phone: Comment on above: Expected: 2022, Expires: 2 Start: 05-18-2022 End: 07-18-2022 Basic metabolic 2000 panel - Serum or Plasma BASIC METABOLIC PNL Lab Routine 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 disease, or chronic kidney disease (HCC) Chronic heart failure with preserved ejection fraction (HFpEF) (HCC) Expected: 05/18/2022, Expires: 07/18/2022 [facility] Work Phone: Comment on above: Expected: 05/18/2022, Expires: 2 Start: 05-18-2022 End: 07-18-2022 HIGH SENSITIVITY TROPONIN T HIGH SENSITIVITY TROPONIN T Lab Routine Chronic heart failure with preserved ejection fraction (HFpEF) (HCC) Expected: 05/18/2022, Expires: 07/18/2022 [facility] Work Phone: Comment on above: Expected: 05/18/2022, Expires: 2 Start: 05-18-2022 End: 07-18-2022 Natriuretic peptide.B prohormone N-Terminal [Mass/volume] in Serum or Plasma NT PRO BNP Lab Routine 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 disease, or chronic kidney disease (HCC) Chronic heart failure with preserved ejection fraction (HFpEF) (HCC) Expected: 05/18/2022, Expires: 07/18/2022 [facility] Work Phone: Comment on above: Expected: 05/18/2022, Expires: 2 Start: 05-14-2022 End: 07-14-2022 Comprehensive metabolic 2000 panel - Serum or Plasma COMP METABOLIC PANEL Lab Routine Telogen effluvium Encounter for medication monitoring Expected: 05/14/2022, Expires: 07/14/2022 [facility] Work Phone: Comment on above: Expected: 05/14/2022, Expires: 2 Start: 04-17-2022 End: 04-17-2023 Cobalamin (Vitamin B12) [Mass/volume] in Serum or Plasma [facility] Work Phone: Comment on above: Expected: 04/17/2022, Expires: 3 Start: 04-17-2022 End: 04-17-2023 Ferritin [Mass/volume] in Serum or Plasma [facility] Work Phone: Comment on above: Expected: 04/17/2022, Expires: 3 Start: 04-17-2022 End: 06-17-2022 Folate [Mass/volume] in Serum or Plasma [facility] Work Phone: Comment on above: Expected: 04/17/2022, Expires: 2 Start: 04-17-2022 End: 06-17-2022 Haptoglobin [Mass/volume] in Serum or Plasma [facility] Work Phone: Comment on above: Expected: 04/17/2022, Expires: 2 Start: 04-17-2022 End: 04-17-2023 Iron and Iron binding capacity panel - Serum or Plasma [facility] Work Phone: Comment on above: Expected: 04/17/2022 (Approximate), Expi res: 04/17/2023 Start: 12-19-2021 COVID-19 VACCINE (4 - Booster for Moderna series) COVID-19 VACCINE (4 - Booster for Moderna series) [facility] Start: 1996 RSV Vaccine (1 - 1-dose 60+ series) RSV Vaccine (1 - 1-dose 60+ series) [facility] Ambulatory bp mntr w /sw 24 hr+ rec scan lindsey i&r AMBULATORY BP MONITORING Cardiology Routine 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 disease, or chronic kidney disease (HCC) Ordered: 05/18/2022 [facility] Work Phone: Comment on above: Ordered: 05/18/2022 Bacteria identified in Urine by Culture URINE CULTURE Microbiology Routine Pain with urination 10/05/2022 4:32 PM EST [facility] Work Phone: Bacteria identified in Urine by Culture URINE CULTURE Microbiology Routine Urgency of urination 07/17/2024 11:37 AM EDT [facility] Work Phone: End: 01-29-2026 Basic metabolic 2000 panel - Serum or Plasma BASIC METABOLIC PANEL Lab Routine 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 disease, or chronic kidney disease (HCC) Every 6 months for 4 Occurrences starting 01/29/2025 until 01/29/2026 [facility] Comment on above: Every 6 months for 4 Occurrences startin g 01/29/2025 until 01/29/2026 End: 10-01-2023 CBC W Auto Differential panel - Blood CBC + DIFF Lab Routine Anemia due to stage 3b chronic kidney disease (HCC) Every 3 months for 4 Occurrences starting 10/01/2022 until 10/01/2023 [facility] Work Phone: Comment on above: Every 3 months for 4 Occurrences startin g 10/01/2022 until 10/01/2023 End: 01-29-2026 CBC W Auto Differential panel - Blood COMPLETE BLOOD COUNT AND DIFFERENTIAL Lab Routine Anemia due to stage 3b chronic kidney disease (HCC) Every 3 months for 8 Occurrences starting 01/29/2025 until 01/29/2026 [facility] Work Phone: Comment on above: Every 3 months for 8 Occurrences startin g 01/29/2025 until 01/29/2026 End: 01-18-2025 DBT Breast - bilateral screening NICOLE SCREENING W MICHELLE Radiology Routine Personal history of malignant neoplasm of breast Encounter for screening mammogram for malignant neoplasm of breast 1 Occurrences starting 12/20/2023 until 01/18/2025 [facility] Work Phone: Comment on above: 1 Occurrences starting 12/20/2023 until 01/18/2025 End: 01-29-2025 DBT Breast - bilateral screening NICOLE SCREENING W MICHELLE Radiology Routine Encounter for screening mammogram for breast cancer 1 Occurrences starting 12/31/2023 until 01/29/2025 [facility] Work Phone: Comment on above: 1 Occurrences starting 12/31/2023 until 01/29/2025 End: 08-03-2024 DXA-AXIAL SKELETON DXA-AXIAL SKELETON Radiology Routine Asymptomatic postmenopausal state Medicare annual wellness visit, subsequent 1 Occurrences starting 07/05/2023 until 08/03/2024 [facility] Work Phone: Comment on above: 1 Occurrences starting 07/05/2023 until 08/03/2024 DXA-AXIAL SKELETON DXA-AXIAL SKE LETON Radiology Routine Asymptomatic postmenopausal state Medicare annual wellness visit, subsequent 08/04/2023 12:52 PM EDT [facility] Work Phone: ECG COMPLETE ECG COMPLETE ECG Routine 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 disease, or chronic kidney disease (HCC) Exertional dyspnea Ordered: 07/03/2024 [facility] Work Phone: Comment on above: Ordered: 07/03/2024 End: 09-13-2025 Echocardiography ECHO Cardiology Routine Chronic diastolic (congestive) heart failure (HCC) 1 Occurrences starting 09/13/2024 until 09/13/2025 [facility] Work Phone: Comment on above: 1 Occurrences starting 09/13/2024 until 09/13/2025 FECAL LACTOFERRIN/LEUKOCYTES FECAL LACTOFERRIN/LEUKOCYTES Lab Routine Collagenous colitis Ordered: 03/28/2024 [facility] Comment on above: Ordered: 03/28/2024 HEARING TEST/AUDIOGRAM HEARING T EST/AUDIOGRAM Audiology Routine Medicare annual wellness visit, subsequent Decreased hearing of both ears Ordered: 07/05/2023 [facility] Work Phone: Comment on above: Ordered: 07/05/2023 End: 03-28-2026 HEARING TEST/AUDIOGRAM HEARING TEST/AUDIOGRAM Audiology Routine Decreased hearing of both ears 1 Occurrences starting 03/27/2025 until 03/28/2026 [facility] Comment on above: 1 Occurrences starting 03/27/2025 until 03/28/2026 Hemoglobin.gastroint estinal .lower [Presence] in Stool by Immunoassay FECAL OCCULT BLOOD TEST Lab Routine Anemia, unspecified type Ordered: 04/14/2022 [facility] Work Phone: Comment on above: Ordered: 04/14/2022 End: 08-03-2024 Hepatobil syst imag inc gb w/pharma intervenj NM HEPATOBILIARY W EF AND/OR RX Radiology Routine Medicare annual wellness visit, subsequent Epigastric pain 1 Occurrences starting 07/05/2023 until 08/03/2024 [facility] Work Phone: Comment on above: 1 Occurrences starting 07/05/2023 until 08/03/2024 End: 02-08-2025 MG Breast - right Diagnostic for implant NICOLE DIAGNOSTIC RIGHT Radiology Routine Abnormal mammogram 1 Occurrences starting 01/10/2024 until 02/08/2025 [facility] Work Phone: Comment on above: 1 Occurrences starting 01/10/2024 until 02/08/2025 End: 04-26-2026 MR Biliary ducts and Pancreatic duct WO and W contrast IV MRI PANC/LEYDA WO/W IVCON Radiology Routine Epigastric pain 1 Occurrences starting 03/27/2025 until 04/26/2026 [facility] Comment on above: 1 Occurrences starting 03/27/2025 until 04/26/2026 End: 04-26-2026 MR Unspecified body region 3D post processing MRI 3D POST PROCESSING Radiology Routine Epigastric pain 1 Occurrences starting 03/27/2025 until 04/26/2026 [facility] Comment on above: 1 Occurrences starting 03/27/2025 until 04/26/2026 Patient Education ED URI, Viral, No Abx (Adult) [facility] Work Phone: Patient referral [facility] Work Phone: PT PLAN OF CARE CERTIFICATION PT PLAN OF CARE CERTIFICATION Procedures Routine Acute right-sided thoracic back pain Ordered: 04/08/2023 [facility] Comment on above: Ordered: 04/08/2023 End: 07-03-2025 STRESS ECHO TREADMILL STRESS ECHO TREADMILL Cardiology Routine Exertional dyspnea 1 Occurrences starting 07/03/2024 until 07/03/2025 [facility] Comment on above: 1 Occurrences starting 07/03/2024 until 07/03/2025 Ther px 1/> areas ea ch 15 minutes massage MASSAGE THERAPY Procedures Routine Chronic back pain, unspecified back location, unspecified back pain laterality Ordered: 02/23/2023 [facility] Work Phone: Comment on above: Ordered: 02/23/2023 Troponin T.cardiac [Mass/volume] in Serum or Plasma by High sensitivity method [facility] End: 04-21-2024 US ABD RIGHT UPPER QUADRANT US ABD RIGHT UPPER QUADRANT Radiology Routine Epigastric abdominal tenderness without rebound tenderness 1 Occurrences starting 03/23/2023 until 04/21/2024 [facility] Work Phone: Comment on above: 1 Occurrences starting 03/23/2023 until 04/21/2024 End: 02-08-2025 US Breast - right limited US BREAST LTD RIGHT Radiology Routine Abnormal mammogram 1 Occurrences starting 01/10/2024 until 02/08/2025 [facility] Work Phone: Comment on above: 1 Occurrences starting 01/10/2024 until 02/08/2025 End: 10-31-2023 US KIDNEY/BLADDER US KIDNEY/BLADDER Radiology Routine Urinary retention 1 Occurrences starting 10/01/2022 until 10/31/2023 [facility] Work Phone: Comment on above: 1 Occurrences starting 10/01/2022 until 10/31/2023 End: 10-31-2023 Us pelvic nonobstetric image dcmtn limited/f/u US PELVIS BLADDER Radiology Routine Urinary retention 1 Occurrences starting 10/01/2022 until 10/31/2023 [facility] Work Phone: Comment on above: 1 Occurrences starting 10/01/2022 until 10/31/2023 End: 08-02-2025 XR Chest PA and Lateral XR CHEST 2V FRONTAL/LAT Radiology Routine Exertional dyspnea 1 Occurrences starting 07/03/2024 until 08/02/2025 [facility] Comment on above: 1 Occurrences starting 07/03/2024 until 08/02/2025 [facility] Immunizations Immunization Date Immunization Notes Care Provider Estevan [facility] 08-21-2023 influenza, injectabl e, quadrivalent, contains preservative Immunization Fam Work Phone: [facility] 08-21-2023 influenza virus vaccine, unspecified formulation Susannah Clemente MD Work Phone: [facility] 08-08-2022 influenza, injectabl e, quadrivalent, contains preservative Immunization Ceylon Work Phone: [facility] 08-08-2022 influenza virus vaccine, unspecified formulation Susannah Clemente MD Work Phone: [facility] 07-16-2022 COVID-19 booster vaccine, age 12+ yr, bivalent ([employer]) Susannah Clemente MD Work Phone: [facility] 09-24-2021 zoster vaccine recombinant Kelsi Lewisville OT/L Work Phone: [facility] Work Phone: 08-19-2021 influenza, injectabl e, quadrivalent, contains preservative Kelsi Lewisville OT/L Work Phone: [facility] 06-25-2021 zoster vaccine recombinant Kelsi Lewisville OT/L Work Phone: [facility] 12-05-2020 COVID-19 vaccine, fu ll dose (MODERNA) Kelsi Lewisville OT/L Work Phone: [facility] Work Phone: 11-07-2020 COVID-19 vaccine, fu ll dose (MODERNA) Kelsi Lewisville OT/L Work Phone: [facility] Work Phone: 08-15-2020 influenza, injectabl e, quadrivalent, contains preservative Kelsi Lewisville OT/L Work Phone: [facility] 09-01-2019 influenza, injectabl e, quadrivalent, contains preservative Kelsi Lewisville OT/L Work Phone: [facility] 08-12-2018 influenza, injectabl e, quadrivalent, contains preservative Kelsi Lewisville OT/L Work Phone: [facility] Work Phone: 07-30-2017 influenza, injectabl e, quadrivalent, contains preservative Kelsi Lewisville OT/L Work Phone: [facility] 07-18-2017 influenza, high dose seasonal, preservative-free Kelsi Lewisville OT/L Work Phone: [facility] Work Phone: 07-18-2017 influenza, injectabl e, quadrivalent, preservative free [facility] 07-18-2017 influenza, seasonal, injectable, preservative free Kelsi Lewisville OT/L Work Phone: [facility] 08-21-2016 influenza, injectabl e, quadrivalent, contains preservative Kelsi Lewisville OT/L Work Phone: [facility] 08-12-2015 influenza, high dose seasonal, preservative-free Kelsi Lewisville OT/L Work Phone: [facility] 11-22-2014 pneumococcal conjuga te vaccine, 13 valent Kelsi Lewisville OT/L Work Phone: [facility] 11-22-2014 pneumococcal polysaccharide vaccine, 23 valent Kelsi Lewisville OT/L Work Phone: [facility] Work Phone: 08-16-2014 influenza, seasonal, injectable Kelsi Lewisville OT/L Work Phone: [facility] Work Phone: 07-29-2013 influenza virus vaccine, unspecified formulation Kelsi Lewisville OT/L Work Phone: [facility] 08-15-2012 influenza virus vaccine, unspecified formulation Kelsi Lewisville OT/L Work Phone: [facility] 08-15-2012 tetanus toxoid, redu emma diphtheria toxoid, and acellular pertussis vaccine, adsorbed Kelsi Lewisville OT/L Work Phone: [facility] 05-31-2012 pneumococcal conjuga te vaccine, 13 valent Kelsi Lewisville OT/L Work Phone: [facility] Work Phone: 08-29-2011 influenza virus vaccine, unspecified formulation Kelsi Lewisville OT/L Work Phone: [facility] 08-15-2010 influenza virus vaccine, unspecified formulation Kelsi Lewisville OT/L Work Phone: [facility] Work Phone: 08-01-2009 influenza virus vaccine, unspecified formulation Kelsi Lewisville OT/L Work Phone: [facility] Work Phone: 10-18-2008 zoster vaccine, live Kelsi Lewisville OT/L Work Phone: [facility] Work Phone: 08-24-2008 influenza virus vaccine, unspecified formulation Kelsi Lewisville OT/L Work Phone: [facility] Work Phone: 07-20-2008 influenza virus vaccine, unspecified formulation Kelsi Lewisville OT/L Work Phone: [facility] 08-26-2007 influenza virus vaccine, unspecified formulation Kelsi Lewisville OT/L Work Phone: [facility] 08-13-2006 influenza virus vaccine, unspecified formulation Kelsi Lewisville OT/L Work Phone: [facility] 09-04-2005 influenza virus vaccine, unspecified formulation Kelsi Lewisville OT/L Work Phone: [facility] Work Phone: 10-18-2004 tetanus and diphther ia toxoids, adsorbed, preservative free, for adult use (2 Lf of tetanus toxoid and 2 Lf of diphtheria toxoid) Kelsi Lewisville OT/L Work Phone: [facility] 10-18-2003 pneumococcal polysaccharide vaccine, 23 valent Kelsi Lewisville OT/L Work Phone: [facility] 10-18-1994 hepatitis A vaccine, unspecified formulation Kelsi Lewisville OT/L Work Phone: [facility] 10-18-1994 hepatitis B vaccine, adult dosage Kelsi Lewisville OT/L Work Phone: [facility] Payers Date Payer Category Payer Medicare MEDICARE MEDICAR E A AND B [id number] 2020-Present [phone] [place] [address] Medicare [id number] 2020 Medicare [id number] 2020 Private Health Insurance PH[employer]ICI [employer]S MUTUAL Member Subscriber Plan / Payer (Effective 2020-Present) Name: Zenaida Evans Relation to Subscriber: Self Name: Zenaida Evans Payer ID: Not on file Group ID: Not on file Type: Indemnity Address: [address] [place], [place] [id number] 2020 Unknown PHYSICIANS MUTUA L PHYSICIANS MUTUAL SUPPLEMENT [id number] 2020-Present [phone] [address] [place], [place] Indemnity [id number] 2020 Unknown PHYSICIANS MUTUA L PHYSICIANS MUTUAL SUPPLEMENT [id number] 2020-Present [phone] [address] [place], [place] Indemnity [id number] 2020 Medicare [id number] Unknown [id number] Self-pay SELF PAY INSURANCE [id number] Unknown [id number] Social History Date Type Detail Facility Start: 01-20-2012 End: 04-09-2025 Tobacco smoking status NHIS Ex-smoker [facility] Work Phone: Start: 01-19-1955 End: 01-19-1967 History of tobacco use Current smoker [facility] Start: 01-19-1955 End: 01-19-1967 History of tobacco use Cigarette Smoker [facility] Start: 12-29-2021 End: 03-27-2025 Alcohol intake Current drinker of alcohol (finding) [facility] Start: 07-05-2020 History SDOH Alcohol Binge 1 [facility] Start: 09-19-2020 History SDOH Financial 5 [facility] Start: 1935 Sex Assigned At Not on file C [facility] Start: 06-29-2020 End: 09-11-2022 Exposure to SARS-CoV-2 (event) Not sure [facility] Work Phone: Start: 05-08-2022 End: 05-18-2022 Exposure to SARS-CoV-2 (event) Unable to assess [facility] Start: 01-20-2012 End: 02-18-2023 Cigarettes smoked current (pack per day) - Reported 1 [facility] Start: 01-20-2012 End: 06-11-2024 Tobacco use and exposure Smokeless tobacco non-user [facility] Start: 03-08-2023 History SDOH Physica l Activity DPW 3 [facility] Start: 03-08-2023 History SDOH Physica l Activity MPS 6 [facility] Start: 03-08-2023 History SDOH Stress 2 [facility] Start: 02-18-2023 End: 03-08-2023 Social connection and isolation panel [facility] In a typical week, how many times do you talk on the telephone with family, friends, or neighbors? Patient refused [facility] Are you now , , , , never or living with a partner? Refused [facility] Do you feel stress - tense, restless, nervous, or anxious, or unable to sleep at night because your mind is troubled all the time - these days [OSQ] Only a little [facility] (I/We) worried whether (my/our) food would run out before (I/we) got money to buy more. DK or Refused [facility] Start: 03-06-2022 Gender identity Identifies as female gender (finding) [facility] How often do you hav e 6 or more drinks on 1 occasion? Never [facility] Start: 11-06-2023 Tobacco smoking status NHIS Unknown if ever smoked [facility] Start: 10-15-2019 None [facility] Start: 10-16-2019 Spouse/ Signif icant Other [facility] Start: 10-16-2019 Non-smoker [facility] Start: 1935 Sex Assigned At Female W [facility] Are you now , , , , never or living with a partner? [facility] Do you feel stress - tense, restless, nervous, or anxious, or unable to sleep at night because your mind is troubled all the time - these days [OSQ] To some extent [facility] NEGATED: Highlighted rowStart: NINF History of tobacco use Passive smoker [facility] Goals Date Patient Goal Desired Activity /State Personal health goal Functional Status Date Assessment Result Facility 03-27-2025 Total score [AUDIT-C] 0 03/27/20 25 3:59 PM EDT Tara Orona MA [facility] 07-13-2024 Total score [AUDIT-C] -1 024 5:43 AM EDT User, Mycdemiant [facility] 07-13-2024 Functional status Patient declin ed 07/13/2024 5:43 AM EDT User, Ramona Patient declined [facility] 11-24-2019 Are you deaf, or do you have serious difficulty hearing No 11/24/2019 3:17 PM Mary Harrison (Rn), RN No [facility] 11-24-2019 Are you blind, or do you have serious difficulty seeing, even when wearing glasses No 11/24/2019 3:17 PM Mary Harrison (Rn), RN No [facility] 11-24-2019 Do you have serious difficulty walking or climbing stairs No 11/24/2019 3:17 PM Mary Harrison (Rn), RN No [facility] 11-24-2019 Do you have difficul ty dressing or bathing No 11/24/2019 3:17 PM Mary HarrisonRn), RN No [facility] 11-24-2019 Because of a physica l, mental, or emotional condition, do you have difficulty doing errands alone such as visiting a physician's office or shopping No 11/24/2019 3:17 PM Mary HarrisonRn), RN No [facility] Mental Status Date Assessment Result Facility 04-09-2025 Cognitive function Voice/Name [facility] Work Phone: 11-06-2023 Cognitive function Level Of Cons ciousness Awake;Alert;Appropriate;Fol lows Commands [facility] Work Phone: 11-24-2019 Because of a physica l, mental, or emotional condition, do you have serious difficulty concentrating, remembering, or making decisions No 11/24/2019 3:17 PM EST Mary Zavala (Rn), RN No [facility] Clinical Notes 12-22-2019 to 04-09-2025 Note Date & Type Note Facility 04-09-2025 Discharge summary [facility] 04-09-2025 Radiology Diagnostic study note [facility] Imaging Services [address] [place], [place] [address] Chest 1 View (Portable) MR#: [id number] Acct: [id number] Name: ZENAIDA EVANS Rep #: [id number] : 1935 F 89 From: Kath Scott MD PCP: Dr. Susannah Clemente MD Status: RE G ER Study:Chest 1 View (Portable) Date of Exam: 04/09/25 Exam# [id number] Ordering Dr: Charissa Dumas PROCEDURE: CHEST 1 VIEW (PORTABLE) 04/09/2025 REASON FOR EXAM: CHEST PAIN TECHNIQUE: Frontal view of the chest. COMPARISON: Chest radiographs on 11/06/2023 and 10/15/2019 FINDINGS: Hardware: None Heart: Cardiac and mediastinal contours are stable. Lungs: Round 8 mm calcification with adjacent surgical clips projecting over theright lower lung zone, unchanged. No new focal consolidation or pleural effusion. Lung volumes are increased with flattening of the hemidiaphragms. Bones: Degenerative changes are identified within the shoulders and thoracic spine. RAD/Chest 1 View (Portable) IMPRESSION: Sequela of COPD, without an acute cardiopulmonary abnormality. Reading Location: [facility] CC: Dr. Susannah Clemente MD; ED PHYSICIAN PROVIDER ~ Commercial Manager: Signed [facility] 04-09-2025 Discharge summary Note Date/Time April 09, 2025 11:07pm [facility] Medical Records Department [address] [place] [address] Emergency Department Summary 04/09/25 MR#: [id number] Acct: [id number] Name: ZENAIDA EVANS Rep #:[id number] : 1935 89 From: Serge Mcmullen MD PCP: Dr. Susannah Clemente MD Status:RE G ER Location: ED HPI History of Present Illness Chief Complaint: Chest Pain Narrative Narrative: 89-year-old female with past medical history of congestive heart failure presents with her daughter because of increasing chest pressure, nausea, and mild shortness of breath that she has had especially over the last 5 days. She relates history that her symptoms actually began approximately 1 month ago. Initially 5 days ago they were very intense for the first 24 hours. She has hadnausea in the past and states that she took medication which improved it. She gets the sensations of chest pressure suddenly come on, then tend to let up. She denies any recent fevers or chills, no shortness of breath. She sees a spice mixer at the [facility]. While she does not take furosemide daily,she is on other diuretics including Farxiga. No increased swelling of her legs. No exacerbating or alleviating factors. There is no predictability to chest pressure nausea. [facility] Medical History CHF (congestive heart failure) Home Medications ?Medication ?Instructions ?Recorded ?Last Taken ?Type aspirin 81 mg chewable tablet 81 mg PO DAILY@0800 hear t 01/18/18 Unknown History levothyroxine 88 mcg tablet 88 mcg PO DAILY thyroid 01/30/18 History acetaminophen 500 mg tablet 1,000 mg (2 x 500 mg) PO Q 8 01/21/18 02/01/18 Rx cholecalciferol (vitamin D3) 25 25 mcg PO DAILY Unknown History mcg (1,000 unit) capsule gabapentin 100 mg capsule 200 mg PO QHS 10/16/19 Unkno wn History hydrochlorothiazide 25 mg tablet 12.5 mg PO DAILY 09/19 Unknown History labetalol 200 mg tablet 100 mg PO BID 10/16/19 Unkno wn History melatonin 5 mg capsule 5 mg PO QHS 10/16/19 Unknown History valsartan 160 mg tablet 160 mg PO DAILY 10/16/19 Unk nown History amlodipine 5 mg tablet 5 mg PO DAILY 10/18/19 Unkno wn Rx budesonide 3 mg 1 cap PO TID ##0 10/18/19 Un known Rx capsule,delayed,extended release clonidine 0.1 mg/24 hr weekly 1 patch 11/06/23 Unknown History transdermal patch furosemide 20 mg tablet 20 mg 11/06/23 Unknown Histo ry ondansetron 4 mg disintegrating 4 mg PO Q8H PRN PRN Na usea #10 tabs 11/06/23 Unknown Rx tablet indapamide 1.25 mg tablet 1.25 mg PO DAILY 04/09/25 Un known History minoxidil 2.5 mg tablet PO 04/09/25 Unknown History nitroglycerin 0.4 mg sublingual mg sublingual 04/09/25 Unknown History tablet Allergy/AdvReac Type Severity Reaction Status Date / Time iron Allergy Unknown Verified 04/09/25 18:49 pentazocine (From Audra) Allergy Other Verified 04/09/25 18:49 scopolamine Allergy Other Verified 04/09/25 18:49 Family History no significant family his Social History Smoking Status: Former smoker ROS ROS ED ROS Narrative Review of systems positive for chest pressure, nausea, mild shortness of breath,no leg swelling, no fevers or chills, no cough. EXAM Physical Exam Narrative Exam Narrative: Afebrile. Vital signs noted. Nontoxic-appearing. Cardiovascular examination reveals a regular rate and rhythm. Lungs are clear to auscultation bilaterally. Abdomen is soft and nontender with normal active bowel sounds. Neurological examination is nonfocal, nonlateralizing. Awake, alert, pleasant. No appreciable pitting edema bilaterally. Const Vital Signs: 04/09/25 18:49 04/09/25 19:49 04/09/25 20:00 Temperature 96.7 F L Temperature Source Temporal Pulse Rate 73 64 65 Respiratory Rate 14 15 Blood Pressure 165/81 H 167/72 H 167/72 H Blood Pressure Mean 109 103 103 Pulse Ox 97 96 96 Oxygen Delivery Method Room Air Room Air Room Air 04/09/25 21:00 04/09/25 22:00 04/09/25 23:00 Temperature Temperature Source Pulse Rate 62 64 66 Respiratory Rate 12 12 15 Blood Pressure 172/68 H 190/83 H 189/83 H Blood Pressure Mean 102 118 118 Pulse Ox 95 96 94 Oxygen Delivery Method Room Air Room Air Room Air MDM MDM MDM Narrative Medical decision making narrative: The differential diagnosis includes but not limited to CHF exacerbation versus ACS versus pneumonia versus pneumothorax. History and physical does not supportpneumonia or pneumothorax. EKG was obtained and interpreted by myself independently. It demonstrates normal sinus rhythm at 64 bpm without ectopy or acute ST changes. No STEMI. I reviewed her laboratory work initially and she has normal white count of 5.7 with hemoglobin 12.4, hematocrit 37.2, platelet count normal at 216. BMP is remarkable for BUN of 31 and creatinine 1.54 with glucose 98. Normal sodium andpotassium. Initial high-sensitivity troponin is elevated at 95, BNP slightly elevated at 828. Given her elevated troponin, while it could be secondary to her elevated creatinine of 1.54, given her history of chest pressure that was intense 4 to 5 days ago associated with nausea and mild shortness of breath, concern is for NSTEMI. She was started on heparin, and her baby aspirin that she took today was supplemented. Chest x-ray interpreted by myself independently shows no evidence of an acute process, no pneumonia or pneumothorax. I reviewed the radiology report which confirms my independent interpretation. Although her repeat 2-hour troponin is trending downwards at 86, I do feel that given her elevated troponins above threshold rules are in for NSTEMI. I discussed patient with Dr. Reyes with cardiology. Patient will be discussed with the hospitalist Dr. Capellan for admission. Disposition is admit to the PCU in stable condition. History & Record Review Discussion w/independent historian: Patient and Family Additional record(s) reviewed:: Prior ED visit Lab Data Attestation: I reviewed the patient's lab results. Labs: Laboratory Results - last 24 hr 04/09/25 04/09/25 04/09/25 19:24 21:20 21:54 WBC 5.7 RBC 3.95 L Hgb 12.4 Hct 37.2 MCV 94.2 MCH 31.4 MCHC 33.3 RDW Std Deviation 44.4 H RDW Coeff of Gabriella 12.9 Plt Count 216 MPV 9.7 Immature Gran % (Auto) 0.200 Neut % (Auto) 49.3 Lymph % (Auto) 32.1 Medina % (Auto) 12.7 H Eos % (Auto) 5.2 H Baso % (Auto) 0.5 Absolute Neuts (auto) 2.8 Absolute Lymphs (auto) 1.84 Nucleated RBC % 0 PT 13.6 INR 1.0 APTT 28.4 Sodium 138 Potassium 4.7 Chloride 101 Carbon Dioxide 25.2 Anion Gap 12 BUN 31 H Creatinine 1.54 H Estim Creat Clear Calc 23.40 L Est GFR (MDRD) Non-Af 32 L BUN/Creatinine Ratio 20.3 H Glucose 98 Calcium 9.5 Troponin T High Sens 95 H* Troponin T Hi Sens 2 Hr 86 H* NT pro BNP II 828 Radiography Chest X-Ray - ED: 1 View, Read by ED Physician and Read by Radiologist Diagnostic Testing: Clinical Impression(s) from Imaging Studies Chest X-Ray 04/09/25 19:38 IMPRESSION: Sequela of COPD, without an acute cardiopulmonary abnormality. Reading Location: [id number] Management Discussion w/another healthcare provider: Hospitalist and Sales Representative [employer] ( cardiology) Discharge Plan Dx/Rx/DC Orders Clinical Impression: Chest pressure, HTN (hypertension), Elevated troponin, Chronic kidney disease Disposition Disposition: Acute Care Hospital [facility] What to do if you have Problems For any increased pain, shortness of breath, bleeding, nausea or vomiting, chestpain, or any unexpected problems, contact your Primary Care Provider. Call [facility] ([phone]) or report to the closest Emergency Room. Call 911 if necessary. 04/09/252 <Electronically signed by Serge Mcmullen MD> Cosigner Signature (if applicable): CC: Dr. Susannah Clemente MD ~ Signed [facility] Work Phone: 1(233) 984-242106-19-2025 Telephone encounter Note* Telephone Encounter - Tara Orona, JOAN - 04/05/2025 4:03 PM EDT Placed form in pending paper slot above JOAN''s desk [facility]06-19-2025 Miscellaneous Notes* Telephone Encounter - Tara Orona MA - 04/05/2025 4:03 PM EDT Placed form in pending paper slot above JOAN''s desk * Telephone Encounter - Susannah Celmente MD - 04/05/2025 3:55 PM EDT This is an application to a wellness program at [facility]. I see that her Sales Record Clerk has ordered a stress test and I would have to defer to him if there are any limitations after we receive results of the stress test. * Telephone Encounter - Tara Orona MA - 04/02/2025 10:04 AM EDT Placed form in Dr. Clemente's in basket, please sign documented in this encounterWestern [facility]06-[facility] Telephone encounter Note * Telephone Encounter - Susannah Clemente MD - 04/05/2025 3:55 PM EDT This is an application to a wellness program at [facility]. I see that her Sales Record Clerk has ordered a stress test and I would have to defer to him if there are any limitations after we receive results of the stress test. [facility]06-18-2025 Telephone encounter Note* Telephone Encounter - Dee Lawson RN - 04/04/2025 9:30 AM EDT Preliminary Approval for Scheduling Purposes ONLY Are [...] to ordering physician and to P PET MEDICAL RECORD LIBRARIAN MC with recommendations. If all recommended orders are present route to P PET MEDICAL RECORD LIBRARIAN [facility]06-18-2025 Miscellaneous Notes* Telephone Encounter - Dee Lawson RN - 04/04/2025 9:30 AM EDT Preliminary Approval for Scheduling Purposes ONLY Are [...] to ordering physician and to P PET MEDICAL RECORD LIBRARIAN MC with recommendations. If all recommended orders are present route to P PET MEDICAL RECORD LIBRARIAN MC * Telephone Encounter - Divine Cleary - 04/04/2025 8:46 AM EDT This form is used for MAIN CAMPUS APPOINTMENTS ONLY. Is this request for a [facility] [place] PET scan appointment? Yes: Senior Oracle Developer: Divine Calabrese Who do we call to schedule this appointment? Patient Requesting Staff [id number] Area Code + Phone/Pager: N/A PET Orders [...] day/next day medically urgent scans please call [phone] to expedite Send requests to P CARDIAC PET MD WEEKS documented in this encounterWestern [facility] Hospital06-[facility]25 Telephone encounter Note * Telephone Encounter - Divine Cleary - 04/04/2025 8:46 AM EDT This form is used for MAIN CAMPUS APPOINTMENTS ONLY. Is this request for a [facility] [place] PET scan appointment? Yes: Senior Oracle Developer: Divine Calabrese Who do we call to schedule this appointment? Patient Requesting Staff [id number] Area Code + Phone/Pager: N/A PET Orders [...] day/next day medically urgent scans please call [phone] to expedite Send requests to P CARDIAC PET MD WEEKS [facility]06-17-2025 Instructions* Patient Instructions* Paul Bautista MD - 04/03/2025 12:37 PM EDT Thank you for visiting the [facility] at the [facility]. Here are your instructions. 1. Increase indapamide to 2.5mg daily. 2. Continue Farxiga at 5mg daily. 3. Labs in 1 week after starting higher dose. 4. Schedule Stress test. 5. Return in 6 months with plans to discuss testing in interim. Please call with questions or concerns. Office: [phone] Paul Bautista MD documented in this encounterWestern Reserve Hospital06-17-2025 NoteHNO ID: [id number] Author: PAUL BAUTISTA MD Service: ? Author Type: Physician Type: Progress Notes Filed: 04/03/2025 12:45 Note Text: Heart and Vascular [facility] SECTION OF HEART FAILURE and CARDIAC TRANSPLANT MEDICINE OUTPATIENT VISIT DATE April 03, 2025 OUTPATIENT VISIT TYPE Established Patient PRIMARY CARE PHYSICIAN: Susannah Clemente [facility] [place] [address] CHIEF COMPLAINT: Shortness of breath and chest [...] 03/13/2011 no retinopathy detected -both eyes - [facility] - return in 1 year - Dr. [...] 1969's Hysterectomy, CAROL, due to fibroids. SOCIAL HISTORY Social History Tobacco Use Smoking status: Former Current packs/day: 0.00 Average packs/day: 1 pack/day for 12.0 years (12.0 ttl pk-yrs) Types: Cigarettes Start date: 01/19/1955 Quit date: 01/19/1967 Years since quittin.2 Passive exposure: Never Smokeless (more content not included)...[facility]06-17-2025 History of Present illness Narrative* Paul Bautista MD - 04/03/2025 11:15 AM EDT Images from the original note were not included. Heart and Vascular [facility] SECTION OF HEART FAILURE and CARDIAC TRANSPLANT MEDICINE OUTPATIENT VISIT DATE April 03, 2025 OUTPATIENT VISIT TYPE Established Patient PRIMARY CARE PHYSICIAN: Susannah Clemente [address] [place] [address] CHIEF COMPLAINT: Shortness of breath and chest [...] she could only exercise for approximately two minutesdue to dyspnea. The test reportedly showed no [...] 03/13/2011 no retinopathy detected -both eyes - [facility] - return in 1 year - Dr. [...] Dissolve 1 tablet under the tongue as neededfor chest pain. If no pain relief call [...] and leave infor 3-5 minutes before rinsing. dapagliflozin propanediol (FARXIGA) [...] 50. Five points is a clinicallymeaningful difference.) Physical T-Score 42.3 42.3 42.3 37.4 Mental T-Score 38.8 38.8 43.5 33.8 Multiple values from one day are sorted in reverse-chronological order PHYSICAL EXAMINATION: BP 168/89 Pulse 67 Resp 15 Ht 168.9 cm (5' 6.5) Wt 58.5 kg (129 lb) SpO2 95% BMI 20.51kg/m General: Well appearing, in no acute distress. [...] ENLARGEMENT BORDERLINE ECG Confirmed by CHRIS SERRANO, [facility] ([id number]) on 07/03/2024 3:08:37 PM Latest Reference Range [...] Abs Lymph 1.00 - 4.00 k/uL 1.82 Medina% % 9.6 Abs Medina <0.87 k/uL 0.41 Eosin% % 1.4 Abs [...] non-medical management as above. Paul Bautista MD [facility] Section Of Heart Failure and Cardiac Transplant Medicine Heart [facility] Vascular [facility] Desk [id number] [place] [address] documented in this encounterWestern Reserve Hospital06-16-2025 Telephone encounter Note * Telephone Encounter - Tara Orona MA - 04/02/2025 10:04 AM EDT Placed form in Dr. Clemente's in basket, please sign [facility]06-10-2025 Instructions* Patient Instructions* Susannah Clemente MD - 03/27/2025 5:41 PM EDT Screening schedule The following prevention plan is recommended: Covid-19 Vaccine() due on 06/18/2024 Depression Screening due on [...] review all the medicines you take, even fzfz-pvc-yqituvt medicines. As you get older, the way medicines work in your body can change. Some medicines, or combinations of medicines, can make you sleepy or dizzy andcan cause you to fall. 3. Have your [...] have certain medical conditions. documented in this encounterWestern [facility] Hospital06-10-2025 NoteHNO ID: [id number] Author: SUSANNAH CLEMENTE MD Service: ? Author Type: Physician Type: Progress Notes Filed: 03/27/2025 17:41 Note Text: Zenaida Evans is a 89 year old female here for a Medicare wellness visit. Recording using CohesiveFT software for draft documentation of the visit was discussed with the patient/authorized labor union business representative; all questions welcomed and answered. Patient/authorized labor union business representative agreed to proceed Zenaida Evans is [...] and difficulty walking during a meeting in [facility]. A stress test was performed in July following this event, which showed her heart rate only reached 79% of the maximum, but no ischemia was detected. She has a follow-up appointment with her spice mixer, Dr. Bautista, next week and an echocardiogram [...] record. Dr. Bautista Cardiology Dr. Candace Manning [facility] Alicia Hylton, Breast Psychology [facility] [place] when daughter was sick [facility] Medical/Family history review Reviewed and updated problem list, medical/surgical/family/social history, medications, and allergies. FAMILY HISTORY Problem Relation Age of Onset Alzheimer's Disease Mother hypertension/stroke d89 Hypertension Mother Stroke Mother Heart Father heart failure, d 72 other (emphseyma) Sister d 59 other (healthy) Daughter Pancreati (more content not included)...[facility]06-10-2025 History of Present illness Narrative* Susannah Clemente MD - 03/27/2025 4:30 PM EDT Images from the original note were not included. Zenaida Evans is a 89 year old female here for a Medicare wellness visit. Recording using Cohes[employer] software for draft documentation of the visit was discussed with the patient/authorized labor union business representative; all questions welcomed and answered. Patient/authorized labor union business representative agreed to proceed Zenaida Evans is [...] and occurred during routine tasks such as laundryand dishes. She denies any recent changes in weight, which has remained stable between 129-132 lbs.She is currently taking indapamide and has not used Lasix recently (in years). Zenaida also mentions a previous episode in July where she experienced severe fatigue and difficulty walking during a meeting in [facility]. A stress test was performed in July following this event, which showed her heart rate only reached 79% of the maximum, but no ischemia was detected. She has a follow-up appointment with her spice mixer, Dr. Bautista, next week and an echocardiogram [...] due to her daughter's recent surgeries for ovarianand pancreatic cancer, and the of her best [...] 2020. She reports good vision but acknowledges needingaudiology referral for hearing issues. Blood pressure's at home better. 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) Latest Ref Rng & Units 02/01/2025 06/24/2024 [...] Manning hand Alicia Hylton, Breast Psychology [place] when daughter was sick [facility] Medical/Family history review Reviewed and [...] 2009. Assessment and Plan: # Atherosclerosis of [place] coronary artery of [place] heart without angina pectoris (I25.10) # Chronic [...] Bernadette daughter. listed as durable power of contract attorney for health care. Discussed COVID booster; advised to separate from flu vaccine due to increased risk of stroke in older adults (will await recommendations in the fall). Follow-up in 6 months. Up to date on bone density. # Epigastric pain (R10.13) - Episodes of epigastric pain reminiscent of previous symptoms. Ordered follow- up MRI of the pancreas to evaluate pancreatic cystic lesion. Recommend schedule follow-up with Dr. Gomez. # Collagenous colitis (K52.831) - No current issues reported; condition has been stable for the past 4-5 years per patient. # Pancreatic cyst (HCC) (K86.2) - Previous MRI in September 2023 showed pancreatic cystic lesion Ordered follow- up MRI to monitor the lesion. # Essential hypertension (I10) - Blood pressures well-controlled at home. Continue current medications: labetalol and clonidine. Refills provided. Return in about 6 months (around 09/26/2025). Susannah Clemente MD documented in this encounterWestern [facility] Hospital04-21-2025 Telephone encounter Note * Telephone Encounter - Kelsi Deleon RN - 02/05/2025 4:58 PM EDT Pt returning call, Results and recommendations reviewed with Understanding [facility]04-21-2025 Miscellaneous Notes* Telephone Encounter - Kelsi Deleon RN - 02/05/2025 4:58 PM EDT Pt returning call, Results and recommendations reviewed with Understanding documented in this encounterWestern Reserve Hospital04-04-2025 Telephone encounter Note * Telephone Encounter - Tara Orona MA - 01/19/2025 1:05 PM EDT Mailed to patient [facility]04-04-2025 Miscellaneous Notes* Telephone Encounter - Tara Orona MA - 01/19/2025 1:05 PM EDT Mailed to patient * Telephone Encounter - Ruby Hurst PA-C - 01/19/2025 11:24 AM EDT Order placed, please inform patient * Telephone Encounter - Tara Orona MA - 01/19/2025 9:21 AM EDT Spoke with patient and stated that this was ordered in the past by Ruby Hurst and to use the DX on the previous order. Last order was 10/04/2023. * Telephone Encounter - Keyona Mckeon LPN - 01/17/2025 8:15 AM EDT Left message for patient to return call. Message can be given upon returned call. * Telephone Encounter - Ruby Hurst PA-C - 01/16/2025 8:27 AM EDT Please find out reason for patient wanting medical massage as the order requires a diagnosis * Telephone Encounter - Juliet Ayala - 01/15/2025 11:05 AM EDT Tommy is calling Susannah Clemente MD today to request Orders (Medical Massage) Patient has been identified by name and birthdate. Duration of symptoms: N/A Person calling: spouse: Tommy Call patient at: [phone] (home) [phone] (cell) Was an appointment scheduled: Closing statement: Juliet Maciel documented in this encounterWestern [facility] Hospital04-04-2025 Telephone encounter Note * Telephone Encounter - Ruby Hurst PA-C - 01/19/2025 11:24 AM EDT Order placed, please inform patient [facility]04-04-2025 Telephone encounter Note* Telephone Encounter - Tara Orona MA - 01/19/2025 9:21 AM EDT Spoke with patient and stated that this was ordered in the past by Ruby Hurst and to use the DX on the previous order. Last order was 10/04/2023. [facility]04-02-2025 Telephone encounter Note* Telephone Encounter - Keyona Mckeon LPN - 01/17/2025 8:15 AM EDT Left message for patient to return call. Message can be given upon returned call. [facility]04-01[facility] Telephone encounter Note* Telephone Encounter - Ruby Hurst PA-C - 01/16/2025 8:27 AM EDT Please find out reason for patient wanting medical massage as the order requires a diagnosis [facility]03-31-2025 Telephone encounter Note* Telephone Encounter - Juliet Ayala - 01/15/2025 11:05 AM EDT Tommy is calling Susannah Clemente MD today to request Orders (Medical Massage) Patient has been identified by name and birthdate. Duration of symptoms: N/A Person calling: spouse: Tommy Call patient at: [phone] (home) [phone] (cell) Was an appointment scheduled: Closing statement: Juliet Maciel [facility] Work Phone: 1(577) 305-917903-25-2025 Note* Addendum Note - Joanie House MD - 01/09/2025 3:30 PM EDTAddended by: JOANIE HOUSE on: 01/09/2025 03:30 PM Modules accepted: Orders [facility]03-25-2025 Miscellaneous Notes* Addendum Note - Joanie House MD - 01/09/2025 3:30 PM EDTAddended by: JOANIE HOUSE on: 01/09/2025 03:30 PM Modules accepted: Orders * Telephone Encounter - Leatha Levin - 01/08/2025 8:52 AM EDT Please see Pt Mychart message Last visit 07/26/24 Please approve prescription and any additional refills and e-script to designated pharmacy. Thank you, Leatha Levin * Telephone Encounter - Joann Saenz RN - 01/05/2025 2:46 PM EDT Refills available documented in this encounterWestern Reserve Hospital03-24-2025 Telephone encounter Note * Telephone Encounter - Tara Orona MA - 01/08/2025 12:45 PM EDT Patient is requesting from [employer]: Refills as follows: Requested Prescriptions Pending Prescriptions Disp Refills cloNIDine TTS (CATAPRES-TTS) 0.1 mg/24 hr 12 Patch 1 Sig: Apply 1 Patch as directed one time a week. Please review and advise. Last office visit 07/03/2024 Future office visit 03/27/2025 [facility]03-24-2025 Miscellaneous Notes* Telephone Encounter - Tara Orona MA - 01/08/2025 12:45 PM EDT [facility] Refills as follows: Requested Prescriptions Pending Prescriptions Disp Refills cloNIDine TTS (CATAPRES-TTS) 0.1 mg/24 hr 12 Patch 1 Sig: Apply 1 Patch as directed one time a week. Please review and advise. Last office visit 07/03/2024 Future office visit 03/27/2025 documented in this encounterWestern [facility] Hospital03-24-2025 Telephone encounter Note * Telephone Encounter - Leatha Levin - 01/08/2025 8:52 AM EDT Please see Pt [employer] message Last visit 07/26/24 Please approve prescription and any additional refills and e-script to designated pharmacy. Thank you, Leatha Levin [facility]03-21-2025 Telephone encounter Note* Telephone Encounter - Joann Saenz RN - 01/05/2025 2:46 PM EDT Refills available [facility]01-30-2025 Telephone encounter Note* Telephone Encounter - Johnson Mara Maciel - 11/16/2024 9:21 AM EST Patient returned phone call and stated she will do the test, she stated thank you for the reminder,she appreciates the doctor remembering this. [facility]01-30-2025 Miscellaneous Notes* Telephone Encounter - Johnson Mara Maciel - 11/16/2024 9:21 AM EST Patient returned phone call and stated she will do the test, she stated thank you for the reminder,she appreciates the doctor remembering this. * Telephone Encounter - Keyona Mckeon LPN - 11/15/2024 5:21 PM EST Left message for patient to return call. Message can be given upon returned call * Telephone Encounter - Susannah Clemente MD - 11/15/2024 11:29 AM EST Recommend follow up complete blood count to keep an eye on blood counts. Order placed. documented in this encounterWestern Reserve Hospital01-29-2025 Telephone encounter Note * Telephone Encounter - Keyona Mckeon LPN - 11/15/2024 5:21 PM EST Left message for patient to return call. Message can be given upon returned call [facility]01-29-2025 Telephone encounter Note* Telephone Encounter - Susannah Clemente MD - 11/15/2024 11:29 AM EST Recommend follow up complete blood count to keep an eye on blood counts. Order placed. [facility]01-07-2025 Telephone encounter Note* Telephone Encounter - Abena Aviles RN - 10/24/2024 11:17 AM EST Appt made 04/07/25 and pt placed on wait list [facility]01-07-2025 Miscellaneous Notes* Telephone Encounter - Abena Aviles RN - 10/24/2024 11:17 AM EST Appt made 04/07/25 and pt placed on wait list * Telephone Encounter - Valente Reddyjuan Johana - 10/24/2024 10:53 AM EST Zenaida is calling Susannah Clemente MD today [...] calling: self Call patient at: at home [phone] (home) verified as best number per patient Was an appointment scheduled: No Closing statement: Results or non-symptom based questions: Thank you for calling [facility], your call will be returned within the next business day. Johana Kathleen documented in this encounterWestern [facility]01-[facility] Telephone encounter Note * Telephone Encounter - Johana Snyder - 10/24/2024 10:53 AM EST Zenaida is calling Susannah Clemente MD today [...] calling: self Call patient at: at home [phone] (home) verified as best number per patient Was an appointment scheduled: No Closing statement: Results or non-symptom based questions: Thank you for calling [facility], your call will be returned within the next business day. Johana Kathleen [facility]12-23-2024 Telephone encounter Note* Telephone Encounter - Tara Orona MA - 10/09/2024 7:54 AM EST [facility]: Requested Prescriptions Pending Prescriptions Disp Refills labetalol (TRANDATE) 200 mg tablet 180 tablet 1 Sig: Take 1 tablet by mouth two times a day. Please review and advise. Last office visit 07/03/2024 Future office visit 11/09/2024 [facility]12-23-2024 Miscellaneous Notes* Telephone Encounter - Tara Orona MA - 10/09/2024 7:54 AM EST [facility]ills [facility] follows: Requested Prescriptions Pending Prescriptions Disp Refills labetalol (TRANDATE) 200 mg tablet 180 tablet 1 Sig: Take 1 tablet by mouth two times a day. Please review and advise. Last office visit 07/03/2024 Future office visit 11/09/2024 documented in this encounterWestern [facility]11-[facility]24 Telephone encounter Note * Telephone Encounter - Dominguez Roach - 08/30/2024 9:35 AM EST Call from patient requesting refill. Requested Prescriptions Pending Prescriptions Disp Refills indapamide (LOZOL) 1.25 mg tablet 90 tablet 3 Sig: Take 1 tablet by mouth once daily. Patient last seen 03/30/24 Dominguez Roach [facility]11-13-2024 Miscellaneous Notes* Telephone Encounter - Dominguez Roach - 08/30/2024 9:35 AM EST Call from patient requesting refill. Requested Prescriptions Pending Prescriptions Disp Refills indapamide (LOZOL) 1.25 mg tablet 90 tablet 3 Sig: Take 1 tablet by mouth once daily. Patient last seen 03/30/24 Dominguez Roach documented in this encounterWestern [facility] Hospital11-12-2024 Telephone encounter Note * Telephone Encounter - Tess Natarajan MA - 08/29/2024 10:55 AM EST 11/09/2407/13/24 Patient electronically sent a request for the [...] notify patient. Please review. Tess Natarajan MA [facility]11-12-2024 Miscellaneous Notes* Telephone Encounter - Tess Natarajan MA - 08/29/2024 10:55 AM EST 11/09/24 SOL 07/13/24 Patient electronically sent a [...] review. Tess Natarajan MA documented in this encounterWestern [facility] Hospital10-09-2024 Instructions* Patient Instructions* Joanie House MD - 07/26/2024 2:09 PM [...] with soap and water. Do not rub thewound, just let the soap and water run [...] please call the office. documented in this encounterWestern [facility] Hospital10-09-2024 History of Present illness Narrative* Michelle Choudhary MD - 07/26/2024 1:50 PM EDT Est Patient LV: 02/18/23 CC: TE/[facility] derm [...] after last appointment(01/02/21) -Notes growing facial hair Current tx: - [...] 03/13/2011 no retinopathy detected -both eyes - [facility] - return in 1 year - Dr. [...] Abs Lymph 1.00 - 4.00 k/uL 2.24 [place]% % 14.7 Abs [place] <0.87 k/uL 0.83 Eosin% % 3.0 Abs [...] Past Histories independently gathered by the clinical biomedical equipment support specialist and the remaining scribed note accurately describes [...] of service preparing to see the patient, [id number] patient care, completing clinical documentation, obtaining and/or reviewing separately obtained history, performing a medically appropriate examination and counseling and educating the patient/family/child care worker Michelle Choudhary MD Patient notified of bx result, SK 07/28 Michelle Choudhary MD documented in this encounterWestern Reserve Hospital10-09-2024 NoteHNO ID: [id number] Author: MICHELLE CHOUDHARY MD Service: ? Author [...] 03/13/2011 no retinopathy detected -both eyes - [facility] - return in 1 year - Dr. [...] Abs Lymph 1.00 - 4.00 k/uL 2.24 [place]% % 14.7 Abs [place] <0.87 k/uL 0.83 Eosin% % 3.0 Abs [...] I Hair pull: negati (more content not included)...[facility] 07-17-2024 NoteHNO ID: [id number] Author: DOMINGUEZ HARKINS MD Service: ? Author [...] of Farxiga with the prescribing physician. Dominguez Harkins, [facility]09-30-2024 History of Present illness Narrative* Dominguez Harkins MD - 07/17/2024 10:48 AM EDT Patient presents with: urgency with urination: X [...] proteus sensitive to Keflex prescribed. She has nothad issues with UTIs for years and wonders [...] physician. Dominguez Harkins MD documented in this encounterWestern Reserve Hospital09-27-2024 History of Present illness Narrative* Rahul Adams RT(Renny) - 07/14/2024 9:30 AM EDT Radiology Service Progress Note PATIENT [...] PATIENT PRESENTS WITH AN IMPLANTABLE OR ATTACHED NUISANCE WILDLIFE TRAPPER: No RADIOLOGY DEPARTMENT: General X-ray: Exam(s) Completed: Chest X-Ray PERIPHERAL IV DATA: Not applicable SIGNED BY: AUGUSTIN Wells) July 14, 2024 9:21 AM documented in this encounterWestern Reserve Hospital09-27-2024 NoteHNO ID: [id number] Author: ADAMS, RAHUL, RT(R) Service: Radiology Author Type: Technologist Type: Progress [...] PATIENT PRESENTS WITH AN IMPLANTABLE OR ATTACHED NUISANCE WILDLIFE TRAPPER: No RADIOLOGY DEPARTMENT: General X-ray: Exam(s) Completed: Chest X-Ray PERIPHERAL IV DATA: Not applicable SIGNED BY: RT Russell(R) July 14, 2024 9:21 [facility]09-26-2024 NoteHNO ID: [id number] Author: ERWIN ROSALES MD Service: ? Author Type: Physician Type: Progress Notes Filed: 07/13/2024 15:01 Note Text: This note was created using [employer]. 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 Subjective Zenaida Evans is a 89 year [...] episode occurred on a flat street in [place], and this unexpected breathlessness was accompanied by [...] fluid overload, as her weight remains mostly stable.Mild and consistent ankle swelling is noted, for which she takes Lasix as needed, but has not observed any major changes recently. 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 There is no significant change in her conditionafter walking back to the parking lot. Considering her known history of hypertensive heart and chronic kidney disease, as well as congestive heart failure, the patient remains concerned about the implications of this new symptom. REVIEW OF SYSTEMS: Objective BP 165/82 Pulse 63 Temp 36.8 C (98.2 F) Resp 20 Wt 62.3 kg (137 lb 5.6 oz) SpO2 97% BMI22.17 kg/m - Cardiovascular: Reports shortness of breath [...] condition closely, given her history of congestive heartfailure and chronic kidney disease. Current management includes [...] to her treatment plan. documented in this encounterWestern Reserve Hospital09-25-2024 Telephone encounter Note * Telephone Encounter - Sally Ha RN - 07/12/2024 9:07 AM EDT Offered next day appointment with Dr. Rosales, patient states that she sees [facility]. Advised her to call his office and I would forward to his office. Reason for Disposition [1] MILD difficulty breathing (e.g., minimal/no SOB at rest, SOB with walking, pulse <100) AND [2] NEW-onset or WORSE than normal Answer Assessment - Initial Assessment Questions 1. RESPIRATORY STATUS: Describe your breathing? (e.g., wheezing, shortness of breath, unable to speak, severe coughing) [place] SOB and chest heaviness for the first [...] prefers to sit, cannot lie down flat, speaksin phrases, mild retractions, audible wheezing, pulse 100-120. - SEVERE: Very SOB at rest, speaks in single words, struggling to breathe, sitting hunched forward,retractions, pulse > 120 Mild to Moderate; episodic with exertion. 5. RECURRENT SYMPTOM: Have you had difficulty breathing before? If Yes, ask: When was the last time? and What happened that time? It happened again on Wednesday with short stint of yard work, after walking up the slope in their yard- but not as pronounced as on Wednesday. 6. CARDIAC HISTORY: Do you have any history of heart disease? (e.g., heart attack, angina, bypasssurgery, angioplasty) CHF, SVT, HTN 7. LUNG HISTORY: [...] travel history, exposures) denies Protocols used: Breathing Pnrmkljqyf-HSTPK-MZ [facility]09-25-2024 Miscellaneous Notes* Telephone Encounter - Sally Ha RN - 07/12/2024 9:07 AM EDT Offered next day appointment with Dr. Rosales, patient states that she sees [facility]. Advised her to call his office and I would forward to his office. Reason for Disposition [1] MILD difficulty breathing (e.g., minimal/no SOB at rest, SOB with walking, pulse <100) AND [2] NEW-onset or WORSE than normal Answer Assessment - Initial Assessment Questions 1. RESPIRATORY STATUS: Describe your breathing? (e.g., wheezing, shortness of breath, unable to speak, severe coughing) [place] SOB and chest heaviness for the first [...] prefers to sit, cannot lie down flat, speaksin phrases, mild retractions, audible wheezing, pulse 100-120. - SEVERE: Very SOB at rest, speaks in single words, struggling to breathe, sitting hunched forward,retractions, pulse > 120 Mild to Moderate; episodic with exertion. 5. RECURRENT SYMPTOM: Have you had difficulty breathing before? If Yes, ask: When was the last time? and What happened that time? It happened again on Wednesday with short stint of yard work, after walking up the slope in their yard- but not as pronounced as on Wednesday. 6. CARDIAC HISTORY: Do you have any history of heart disease? (e.g., heart attack, angina, bypasssurgery, angioplasty) CHF, SVT, HTN 7. LUNG HISTORY: [...] travel history, exposures) denies Protocols used: Breathing Yserxasdeq-OUSMW-VP * Telephone Encounter - Abena Aviles RN - 07/11/2024 3:39 PM EDT Vm left to call and speak with a nurse * Telephone Encounter - Helga Ly RN - 07/11/2024 2:11 PM EDT Images from the original note were not included. LM for patient to call back Scheduled patient for appointment tomorrow at 910 with Jose please triage and ask patient if she wants appointment tomorrow Zenaida Malin [facility] (supporting Susannah Clemetne MD)1 minute ago (2:09 PM) Cristino Clemente: I thought I should report a recent issue which could be heart related. On WednesdayI was attending a conference in [place]. Because it started early I couldn't find an open parkinggarage near by so I parked at [address] and walked to the conference site at the library on . I found very quickly that I was having a heavy feeling in the chest and difficulty breathing. I had to take frequent breaks to get there. I had never had that reaction before to walking and was surprised as I routinely use the treadmill at the [employer] and do a mile or so at [facility] with no great effort. The same response occurred on my return to the parking area. I was concerned butfelt fine the next day and since. I did book the stress echo for the Jul. I wonder if this could be a reaction to the stress of my daughter's cancer diagnosis. ThanksZenaida documented in this encounterWestern Reserve Hospital09-24-2024 Telephone encounter Note * Telephone Encounter - Abena Aviles RN - 07/11/2024 3:39 PM EDT Vm left to call and speak with a nurse [facility]09-24-2024 Telephone encounter Note* Telephone Encounter - Helga Ly RN - 07/11/2024 2:11 PM EDT Images from the original note were not included. LM for patient to call back Scheduled patient for appointment tomorrow at 910 with Jose please triage and ask patient if she wants appointment tomorrow Zenaida Malin [facility] (supporting Susannah Clemente MD)1 minute ago (2:09 PM) Cristino Clemente: I thought I should report a recent issue which could be heart related. On WednesdayI was attending a conference in [place]. Because it started early I couldn't find an open parkinggarage near by so I parked at [address] and walked to the conference site at the library on . I found very quickly that I was having a heavy feeling in the chest and difficulty breathing. I had to take frequent breaks to get there. I had never had that reaction before to walking and was surprised as I routinely use the treadmill at the [employer] and do a mile or so at 3mph with no great effort. The same response occurred on my return to the parking area. I was concerned butfelt fine the next day and since. I did book the stress echo for the Jul. I wonder if this could be a reaction to the stress of my daughter's cancer diagnosis. Zenaida Gold [facility]09-24-2024 Telephone encounter Note* Telephone Encounter - Helga Ly RN - 07/11/2024 2:10 PM EDT See nurse triage note [facility]09-24-2024 Miscellaneous Notes* Telephone Encounter - Helga Ly RN - 07/11/2024 2:10 PM EDT See nurse triage note documented in this encounterWestern Reserve Hospital09-16-2024 Telephone encounter Note * Telephone Encounter - Susannah Clemente MD - 07/03/2024 2:50 PM EDT Continues adjacent hospital follow-up and 1 day release on November 09 at 11:10 [facility]09-16-2024 Miscellaneous Notes* Telephone Encounter - Susannah Clemente MD - 07/03/2024 2:50 PM EDT Continues adjacent hospital follow-up and 1 day release on November 09 at 11:10 * Telephone Encounter - Phyllis Crook - 07/03/2024 11:54 AM EDT Patient wanted me to contact you, nothing available for medicare wellness in 4 months, I offered marcus Beltran, pt declined, next available was february. Patient wanted me to message you to see if February was okay for her to be seen. documented in this encounterWestern Reserve Hospital09-16-2024 Telephone encounter Note * Telephone Encounter - Phyllis Crook - 07/03/2024 11:54 AM EDT Patient wanted me to contact you, nothing available for medicare wellness in 4 months, I offered marcus Beltran, pt declined, next available was february. Patient wanted me to message you to see if February was okay for her to be seen. [facility]09-16-2024 NoteHNO ID: [id number] Author: USSANNAH CLEMENTE MD Service: ? Author Type: Physician Type: Progress Notes Filed: 07/03/2024 11:03 Note Text: Note created with [employer]: HPI The patient is a 89-year-old [...] 4.00 k/uL 1.67 1.87 1.88 1.62 2.24 [place]% % 10.5 11.3 13.1 11.6 14.7 Abs [place] <0.87 k/uL 0.46 0.50 0.50 0.53 0.83 [...] approximately six mon (more content not included)... [facility]09-16-2024 History of Present illness Narrative* Susannah Clemente MD - 07/03/2024 10:39 AM EDT Note created with [employer]: HPI The patient is a 89-year-old female with a history of HTN, presenting for evaluation of dyspneaand recent UTI. The patient reports intermittent dyspnea [...] 5 mg, for over a year without priorincidents of UTIs. She was previously informed that [...] to receive the flu vaccine in July. Sheinquires about the [place] cancer screening test. Cardiovascular: [...] 4.00 k/uL 1.67 1.87 1.88 1.62 2.24 [place]% % 10.5 11.3 13.1 11.6 14.7 Abs [place] <0.87 k/uL 0.46 0.50 0.50 0.53 0.83 [...] Wellness. Susannah Clemente MD documented in this encounterWestern Reserve Hospital09-09-2024 NoteHNO ID: [id number] Author: EMILEE CRUMP APRN.URMILA Service: ? Author Type: Nurse Practitioner Type: [...] if change in therapy is required. Emilee CrumpMem[facility] History of Present illness Narrative* Emilee Crump APRN.POWER SYSTEM ENGINEER - 06/26/2024 4:07 PM EDT Patient presents with: Urinary Frequency: burning with [...] is required. Emilee Crump documented in this encounterWestern Reserve Hospital09-09-2024 Instructions* Patient Instructions* Emilee Crump APRN.CNP - 06/26/2024 3:56 PM [...] treated. A physician, nurse practitioner or physician retail store assistant may treat with a short course [...] women if symptoms resolve. documented in this encounterWestern Reserve Hospital09-09-2024 Telephone encounter Note * Telephone Encounter - Abena Aviles RN - 06/26/2024 2:37 PM EDT Msg relayed with understanding. Pt to go to walk in clinic [facility]09-09-2024 Miscellaneous Notes* Telephone Encounter - Abena Aviles RN - 06/26/2024 2:37 PM EDT Msg relayed with understanding. Pt to go to walk in clinic * Telephone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 07/10/2020 07/10/2020 03/08/2023 Physical T-Score 42.3 [...] Lymph 1.00 - 4.00 k/uL 1.67 1.87 Medina% % 10.5 11.3 Abs Medina <0.87 k/uL 0.46 0.50 Eosin% % 1.6 [...] Will trial on dapagliflozin and reassess her symptomsafter 1 month. Recommendations: 1. Start dapagliflozin 10mg [...] non-medical management as above. Paul Bautista MD [facility] Section Of Heart Failure and Cardiac Transplant Medicine Heart and Vascular [place] [facility] Desk [address] [place] [address] documented in this encounterWestern Reserve Hospital12-14-2023 Evaluation note* Diagnosis Chronic diastolic (congestive) heart failure (HCC)- Primary Stage 3a chronic kidney disease (HCC) documented in this encounter [facility]12-05-2023 Miscellaneous Notes* Telephone Encounter - Chidi Keller RN - 09/21/2023 8:30 AM EST Routing to the provider for review. documented in this encounterWestern Reserve Hospital11-24-2023 History of Present illness Narrative* Liam Bull, PT - 09/10/2023 1:28 PM EST Program_ID:[id number] Access Code: [email or web address] URL: [email or web address] Date: 09-10-2023 Prepared By: Liam Bull Program [...] 1330 Liam Bull PT documented in this encounterWestern Reserve Hospital11-22-2023 History of Present illness Narrative* John, Shalini [facility] - 09/08/2023 11:00 AM EST [...] medications --> PharmD will reach out to spice mixer to discuss retrial of SGLT2i (pt has f/up visit next month); will also discuss if it would be worth transitioning patient from labetalol to carvedilol given the extra morbidity/mortality data The patient verbalized understanding of the instructions. Patient taking SGLT2-I at conclusion of visit: No The patient is not taking SGLT2-I due to other tried Jardiance in past, open to discussing with spice mixer at upcoming appt . Follow up: See patient instructions The majority of the pharmacy visit (> 50%) was spent counseling and/or coordinating care for thepatient. Time was 35 minutes. documented in this encounterWestern Reserve Hospital11-16-2023 History of Present illness Narrative* Nadja [...] 02, 2023 10:51 AM documented in this encounterWestern Reserve Hospital11-13-2023 History of Present illness Narrative* Liam Bull, PT - 08/30/2023 4:26 PM EST Program_ID:[id number] Access Code: [email or web address] URL: [email or web address] Date: 08-30-2023 Prepared By: Liam Bull Program [...] of Care: created on 08/30/23 through 10/12/23 [place] in home exercise program. Patient will decrease [...] Planned: 4 Planned Treatment Interventions: Therapeutic exercise (23537), Neuromuscular re- education (58593), Manual therapy (08611), Therapeutic activities (20579), Self- retirement management (40445), Gait Training (55529), Patient/Family/Caregiver Education PLAN FOR NEXT VISIT: Assess [...] Recreation / Current Exercise: 3x/per week at [employer] machines; light machines Intake Information: Prescription present [...] program TREATMENT: PT Treatment Interventions: Therapeutic Exercise, Self-Fci Management Evaluation Therapeutic Exercise: 1: *Supine LTR: 1x10 ea. 2: *Supine TA Bracinx10, 5 hold. 3: *Seated HS Stretch:2x30 4: *Supine BKFO: 1x10 ea. 5: *R SKC: 1x30 6: *Supine Glute Stretch to [place] Shoulder: 1x30 ea. Skilled Intervention: Patient was [...] facilitated with verbal, visual, and tactile cuing. Self-Fci Management: 1: *Postural education. 2: *Discussed therapy [...] 1628 Liam Bull PT documented in this encounterWestern Reserve Hospital10-30-2023 Miscellaneous Notes* Telephone Encounter - Katey Melo - 08/16/2023 9:38 AM EDT Patient last seen 02/2023 RX Minoxidil Please approve prescription and any additional refills and e-script to designated pharmacy. Thank you, Katey Melo documented in this encounterWestern Reserve Hospital10-20-2023 History of Present illness Narrative* Migel Garcia PA-C - 08/06/2023 10:58 AM EDT Images from the original note were not included. Migel Garcia PA-C [facility] [address] [address] 08/06/2023 ASSESSMENT AND PLAN: Assessment : Encounter [...] the pelvis and sacrum. She has tried healthcare account manager, massage therapy every 2 weeks, acupuncture, TENS unit in the chiropractic office, and physical therapy a number of years ago. All of these things have given her moderate relief without long-lasting relief. She uses occasional Aleve for her symptoms and finds that walking on a treadmill seems to help a little bit too. She participates in daily exercising at the [facility] fitness center in [facility]. EXAM Highlights: She mobilizes somewhat slowly from [...] perhaps try supervised PT again at the [facility]. She will return here if symptoms appreciably [...] today with this patient visit. This includes lzjz-ap-ugda time, review of chart records regarding conservative care history, spine- pertinent imaging, and communication/care coordination with referring provider, problem-specific history-taking and counseling/education regarding treatment options. cc: Susannah Clemente [address] [place] [address] Results of consultation to be transmitted via electronic medical record for those providers who practice within [facility] or with access to [place] via MD Connect, or via letter. ######################################################################## [...] 10 mL INTRAVENOUS DIRECTED PRN Le Orourke APRN.URMILA Allergies: Scopolamine, Amlodipine, Hctz [Thiazides], Hydralazine, Iron, [...] 03/13/2011 no retinopathy detected -both eyes - [facility] - return in 1 year - Dr. [...] early 1969' Hysterectomy, CAROL, due to fibroids. Social History [...] STUDIES: See discussion above documented in this encounterWestern [facility]10-[facility]23 History of Present illness Narrative* Fabiola [...] 04, 2023 12:48 PM documented in this encounterWestern Reserve Hospital10-09-2023 Instructions* Patient Instructions* Cristina Lara, RODY - 07/26/2023 2:14 PM EDT Images from the original note were not included. [facility] [place] Section of Audiology Thank you for trusting the [facility] Audiology department with your hearing healthcare [...] technology, please call our scheduling line at [phone] and ask for a Hearing Aid Evaluation appointment at your preferred [facility] location. You can request this appointment with your figurine maker through [employer], as well. In order to investigate a potential insurance benefit for hearing aids, please plan to schedule your appointment for at least 1 week from the time of your phone call so that your insurance benefit can be verified. If there is no insurance benefit, please be aware there is a $100 [id number]-[id number] fee due at time of service. Listed [...] strategies to enhance communication ability. * Call [phone] to schedule an appointment to assess your need for hearing aids. Request a HAE appointment. Thank you for trusting and choosing [facility] Audiology with your hearing care needs. Ple[place] not hesitate to reach out with any questions or concerns. Sincerely, RODY Dejesus, [facility] Clinical and Senior Hearing Implant Display Maker documented in this encounterWestern Reserve Hospital10-09-2023 History of Present illness Narrative* Cristina Lara AUD - 07/26/2023 1:45 PM EDT Head and Neck [place] AUDIOLOGIC EVALUATION REPORT Name: Zenaida Evans [facility]#: [id number] Date of Service: 07/26/2023 Date of : 1935 Age: [age] year old Referred by: Susannah Clemente MD Referred for: Evaluation of suspected change in hearing, tinnitus, or balance. Referral documented: In an order in [facility] Patient's major complaints: Hearing loss: mostly [...] evaluation of middle ear function. CPT code: 77221 RIGHT EAR: Did not test. LEFT EAR: Did not test. ACOUSTIC REFLEXES Description of procedure: This test is an objective measure of auditory and facial nerve pathways. CPT code: 27838, 65096 RIGHT EAR PROBE EAR: (ipsi right stimulus [...] and boneconduction and speech recognition testing. CPT code:39260 RIGHT EAR: Hearing Sensitivity: Mild sloping to [...] strategies to enhance communication ability. * Call [phone] to schedule an appointment to assess your need for hearing aids. Request a HAE appointment. Rody Dejesus, [facility] Clinical and Senior Hearing Implant Display Maker copied to: Susannah Clemente MD [place] Abbrev- iation Definition Degree of hearing sensitivity dB range WNL within normal limits WNL 0 - 20 SNHL sensorineural hearing loss Mild 20-40 CHL conductive hearing loss Moderate 40-55 MHL mixed hearing loss Moderately-Severe 55-70 WRS word recognition score Severe 70-90 ME middle ear Profound 90 + TM tympanic membrane documented in this encounterWestern Reserve Hospital09-21-2023 History of Present illness Narrative* Tracy [...] 12:35 PATIENT DISCHARGED TO: Ambulatory patient, left MD department area. A Diagnostic radioactive procedure has taken place, with no further precautions necessary other than routine body substance precautions. More information regarding radiation safety can be found usingthis link: [email or web address] SIGNATURE: RT Bowen(R) PATIENT NAME: Zenaida Evans DATE: July 08, 2023 TIME: 12:46 PM PAGER/CONTACT #: documented in this encounterWestern Reserve Hospital09-18-2023 History of Present illness Narrative* Susannah [...] sexual function:Not at all denies bladder concerns. [place] anxious, stressed, angry, irritable, lonely, isolated, or had thoughts of hurting themself: Not at all Has little interest or pleasure in doing things: Several days Bothered by feeling down, depressed, or hopeless: Several days States stressful caring for . Is now at [facility], now getting rehab. Needs help with grocery shopping, cooking, housework, bathing, grooming, dressing, eating, sitting or standing, walking, using the toilet, handling finances, taking medications, using the telephone, or driving: Yes Ordering several meals a week from someone. 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 Driving okay. Can afford a laundry route driver. Following safety precautions in the home [...] in the medical record. Dermatology new in [place] for Basal Cell Cardiology Gastroenterology Alicia yHlton for breast follow up. No need to [...] (1.69m) Wt 133 lb 4 oz (60.4kg) ImJ117% BMI 21.19 kg/(m^2). Hemoglobin (g/dL) Date Value [...] Abs Lymph 1.00 - 4.00 k/uL 1.81 Medina% % 9.6 Abs [place] <0.87 k/uL 0.41 Eosin% % 3.3 Abs [...] RX Susannah Clemente MD documented in this encounterWestern Reserve Hospital06-22-2023 History of Present illness Narrative* Kelsi [...] visits planned) Planned Treatment Interventions: Therapeutic exercise (48140), Neuromuscular re- education (66763), Manual therapy (54088), Therapeutic activities (57877), Self- retirement management (22309), Gait Training (60236), Patient/Family/Caregiver Education PLAN FOR NEXT VISIT: DC [...] States/Identifies, Return Demonstration TREATMENT: PT Treatment Interventions: Self-Fci Management Evaluation Self-Fci Management: 1: provided pt. education with images: [...] 30 Kelsi Souza PT documented in this encounterWestern Reserve Hospital06-16-2023 History of Present illness Narrative* Lyndsay Krishnamurthy - 04/02/2023 12:26 PM EDT EVENT MONITOR DISPOSABLE PATCH INSTRUCTIONS Patient Name: Zenaida Evans [facility] Number: [id number] Skin prepped and cleansed with alcohol Patch secured to prepped area Monitor Activated Serial #: [id number] Patient Instructed: Prescribed order timeframe Bathing guidelines Usage of event button and diary documentation Return of monitor at the end of prescribed order Call with problems [phone] or [phone] ext. [phone] Patient expresses a good understanding of instructions Lyndsay Krishnamurthy documented in this encounterWestern Reserve Hospital06-15-2023 History of Present illness Narrative* Kelsi [...] 01, 2023 10:12 AM documented in this encounterWestern Reserve Hospital06-06-2023 History of Present illness Narrative* Susannah [...] improve. Susannah Clemente MD documented in this encounterWestern Reserve Hospital05-22-2023 Miscellaneous Notes* Telephone Encounter - Sally [...] yes, no; LMP) N/a Protocols used: Back [id number] documented in this encounterWestern Reserve Hospital05-09-2023 Miscellaneous Notes* Telephone Encounter - Tara Orona MA - 02/23/2023 10:23 AM EDT Gave message to patient, expressed understanding Mailed to patient * Telephone Encounter - Susannah Clemente MD - 02/23/2023 10:05 AM EDT Order printed in my outbox. documented in this encounterWestern Reserve Hospital04-15-2023 History of Present illness Narrative* Kelsi Zavala APRN.POWER SYSTEM ENGINEER - 01/30/2023 9:53 AM EDT This note was created using Zam[employer] Technology[employer]. Subjective Zenaida Evans is a 87 year [...] history is provided by the patient. No sign language translator was used. Sore Throat This is a [...] 03/13/2011 no retinopathy detected -both eyes - [facility] - return in 1 year - Dr. Ruby hair thinning sees Dr Choudhary Hormone replacement therapy (HRT) 1974-present stopped by 09/2011 hx of low vitamin D treated 08/2007 20.4 recheck only 23 06/25 improved to 54 PMH - PAST MEDICAL HISTORY OF cardiac arrhythmia- resolved with change in medication Stage 3 chronic kidney disease ([facility]) 11/22/2019 Symptomatic states associated with artificial menopause [...] early 1969's Hysterectomy, CAROL, due to fibroids. ALLERGIES Scopolamine, [...] week Kelsi Zavala APRN.URMILA documented in this encounterWestern Reserve Hospital03-22-2023 Miscellaneous Notes* Letter - Mammography Coordinator - 01/06/2023 4:13 PM EDT January 07, 2023 PID: [id number] Zenaida Ledesma Cristina [address] [place] [address] Dear Ms. Evans, We are pleased to [...] report will be kept on file at [facility] as part of your permanent medical record and are available for your continuing care. Thank you for allowing us to help in meeting your health care needs. Sincerely, Dr. 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 She underwent a right NL PM with [...] D 2000 units. BMD: Yes, Date in [facility]: 01/02/21; lowest T Score - 0.8-Normal PERSONAL [...] results - Negative Colonoscopy: Yes, Date in [facility]: 09/08/13; results - Diverticulosis-repeat in 10 [...] 03/13/2011 no retinopathy detected -both eyes - [facility] - return in 1 year - Dr. [...] which included preparing to see the patient, [id number] patient care, completing clinical documentation, obtaining and/or reviewing separately obtained history, performing a medically appropriate examination, counseling and educating the pat ient/family/caregiver, ordering medications, tests, or procedures, communicating results to the patient/family/caregiver, and care coordination (not separately reported). Alicia Hylton APRN.URMILA Medical Breast Specialist Women's Health Nurse Practitioner CC: Susannah Clemente MD [address] [place] [address] documented in this encounterWestern Reserve Hospital02-07-2023 History of Present illness Narrative* Erwin [...] 03/13/2011 no retinopathy detected -both eyes - [facility] [facility] - return in 1 year - Dr. [...] 10 mL INTRAVENOUS DIRECTED PRN Le Orourke, MAJOR ASSEMBLY LINEMAN.POWER SYSTEM ENGINEER ALLERGIES Allergen Reactions Scopolamine Mental Status Change [...] trigger finger Informed Consent Consent Obtained: Verbal Brickeys Protocol A moment to CARE was completed. [...] applicable Erwin Maria MD documented in this encounterWestern Reserve Hospital02-03-2023 Instructions* Patient Instructions* Le Orourke APRN.CNP - 11/20/2022 11:27 AM EST -No medication changes today. -Please have blood work drawn on 01/12/2023 and I will follow-up with you when I get the results. -Follow-up with Dr. Bautista on 04/02/2023 with echo (if possible). documented in this encounterWestern Reserve Hospital02-03-2023 History of Present illness Narrative* Le Orourke APRN.CNP - 11/20/2022 10:26 AM EST Images from the original note were not included. Heart and Vascular [place] [facility] SECTION OF HEART FAILURE and CARDIAC TRANSPLANT MEDICINE OUTPATIENT VISIT DATE 11/20/2022 PRIMARY CARE PHYSICIAN: Susannah Clemente [address] [place] [address] PRIMARY HEART FAILURE TIME CLOCK REPAIRER: Dr. Bautista CHIEF COMPLAINT: Follow-up HISTORY OF [...] 03/13/2011 no retinopathy detected -both eyes - [facility] - return in 1 year - Dr. [...] 0.1 mg patch weekly Device therapy: no, [place] QRS: 80 ms Sleep apnea: no Anemia: [...] as above. Le Orourke MSN, ACNP-BC, CHFN, [facility] Section Of Heart Failure and Cardiac Transplant Medicine Heart and Vascular [place] [facility] Desk J3-[address] [place] [address] documented in this encounterWestern Reserve Hospital01-12-2023 Miscellaneous Notes* Telephone Encounter - Keyona [...] 10/22/2022 7:28 PM EST documented in this encounterWestern Reserve Hospital12-22-2022 Miscellaneous Notes* Telephone Encounter - Crystal [...] with primary care provider. documented in this encounterWestern Reserve Hospital12-22-2022 History of Present illness Narrative* Kelsi [...] 08, 2022 11:09 AM documented [facility] this [facility] History of Present illness Narrative* Ramandeep [...] 03/13/2011 no retinopathy detected -both eyes - [place] - return in 1 year - Dr. [...] dip. Ramandeep Nieto PA-C documented in this encounterWestern Reserve Hospital12-15-2022 History of Present illness Narrative* Susannah [...] Abs Lymph 1.00 - 4.00 k/uL 2.10 Medina% % 10.4 Abs [place] <0.87 k/uL 0.50 Eosin% % 3.3 Abs [...] 12/30/2022). Susannah Clemente MD documented in this encounterWestern Reserve Hospital12-15-2022 Evaluation note* Diagnosis Stage 3 chronic [...] kidney disease (HCC) documented in this encounter [facility]11-28-[facility] History of Present illness Narrative* Rosendo Rodgers MD - 09/14/2022 2:43 PM EST Phone call. Reviewed labs, hemoglobin normal. Plan recheck in spring. 10 minute phone call. Rosendo Rodgers MD September 14, 2022 documented in this encounterWestern Reserve Hospital11-25-2022 Miscellaneous Notes* Telephone Encounter - Letitia [...] patient once the orders are in at [phone]. Thank you documented in this encounterWestern Reserve Hospital11-16-2022 Instructions* Patient Instructions* Paul Bautista MD - 09/02/2022 1:56 PM EST Thank you for visiting the [facility] at the [facility]. Here are your instructions. 1. Only take your furosemide as needed for weight gain of 3lbs in a day or 5lbs in a week. 2. Start indapamide 1.25mg per day. 3. Obtain labs in 1 week. 4. Return in 3 months with GUSSET EDGER and 6 months with me. Please call with questions or concerns. Office: [phone] Paul Bautista MD documented in this encounterWestern Reserve Hospital11-16-2022 History of Present illness Narrative* Paul Bautista MD - 09/02/2022 1:15 PM EST Images from the original note were not included. Heart and Vascular [place] [facility] SECTION OF HEART FAILURE and CARDIAC TRANSPLANT MEDICINE OUTPATIENT VISIT DATE September 02, 2022 OUTPATIENT VISIT TYPE Established Patient PRIMARY CARE PHYSICIAN: Susannah Clemente [address] [place] [address] CHIEF COMPLAINT: Feeling well NURSING INTAKE (Patient [...] in 04/2020 when she presented to her spice mixer with peripheral edemarequiring furosemide. Her ntprobnp had [...] 03/13/2011 no retinopathy detected -both eyes - [facility] - return in 1 year - Dr. [...] non-medical management as above. Paul Bautista MD [facility] Section Of Heart Failure and Cardiac Transplant Medicine Heart and Vascular [place] [facility] Desk J3-[address] [place] [address] documented in this encounterWestern Reserve Hospital10-20-2022 Miscellaneous Notes* Telephone Encounter - Megan [...] time. * Telephone Encounter - Nadja Mosley [facility] - 08/06/2022 12:02 PM EDT Pt calling for a refill on her Ipratropium .06% spray. I did not see it on med list. Thank you! documented in this encounterWestern Reserve Hospital10-05-2022 Miscellaneous Notes* Telephone Encounter - Michelle Choudhary MD - 07/22/2022 5:36 PM EDT Zenaida Evans is a 87 year old female Refilled oral minoxidil 1.25 a day Michelle Choudhary MD documented [facility] this [facility] History of Present illness Narrative* Susannah Clemente MD - 07/16/2022 11:47 AM EDT Patient presents with: Follow Up States was at [facility] and looked into the water. States did look into it earlier. The govt had a bill. Some of the chemicals are: Benzene (discussed possible effect on bone marrow AML, CLL) Tetrachloroethylene (discussed acute toxicity, neuro, pulmonary and GI) Trichloroethylene Vinyl Chloride (liver cancer). Discussed and will check in with them. States blood pressure at home has been very good. Did see Sales Record Clerk who ran a 24 hour blood pressure. [...] 10/15/2022). Susannah Clemente MD documented in this encounterWestern Reserve Hospital08-15-2022 History of Present illness Narrative* Dennys [...] by mouth two times a week. Lmefol Oj-psicah-auZ36-algal (CEREFOLIN NAC, ALGAL OIL,) 6 mg-600 mg- [...] Pressure in Adults: A Report of the [place] College [employer] Cardiology/[employer] Heart Association Task Force on Clinical Practice Guidelines. Hypertension. 2018 Theo;71(6):v38-v437. Epub 2016Aug 30. The ABPM should be [...] all individual readings will be scanned into Tunesat, which can be reviewed under scanned documents. Dennys Guzman MD documented in this encounterWestern Reserve Hospital08-01-2022 Instructions* Patient Instructions* Paul Bautista MD - 05/18/2022 10:27 AM EDT Thank you for visiting the [facility] at the [facility]. Here are your instructions. I'm concerned [...] Please call with questions or concerns. Office: [phone] Paul Bautista MD documented in this encounterWestern Reserve Hospital08-01-2022 History of Present illness Narrative* Paul Bautista MD - 05/18/2022 9:30 AM EDT Images from the original note were not included. Heart and Vascular [place] [facility] SECTION OF HEART FAILURE and CARDIAC TRANSPLANT MEDICINE OUTPATIENT VISIT DATE May 18, 2022 OUTPATIENT VISIT TYPE Consultation PRIMARY CARE PHYSICIAN: Susannah Clemente [facility] [place] [address] CHIEF COMPLAINT: Shortness of breath NURSING INTAKE [...] in 04/2020 when she presented to her spice mixer with peripheral edemarequiring furosemide. Her ntprobnp had [...] 03/13/2011 no retinopathy detected -both eyes - [place] - return in 1 year - Dr. [...] by mouth two times a week. Lmefol Nm-jmdfop-moJ60-algal (CEREFOLIN NAC, ALGAL OIL,) 6 mg-600 mg- [...] - Exam was compared with the prior CC echocardiographic exam performed on 08/21/16 STRESS. Similar [...] Oct;22(1):148-158. doi: [email or web address]/ejhf.1621. Epub 2018Aug 07. PMID: [id number]. PLAN AND RECOMMENDATIONS: 86 yo male with [...] LVH or low voltage and her echocardiogram [id number] does not show any overt cardiac remodeling. She has NYHA class IIIa symptoms when dealing withinclines. Given her NTprobnp, will start SGLT2i. We had a discussion about urogenital infections. In addition, we discussed possibilities of fluctuation in eGFR but overall, SGLT2i being very good for renal function terminal operations supervisor. We will also assess ambulatory blood [...] non-medical management as above. Paul Bautista MD [facility] Section Of Heart Failure and Cardiac Transplant Medicine Heart and Vascular [place] [facility] Desk J3-[address] [place] [address] documented in this encounterWestern Reserve Hospital07-28-2022 Instructions* Patient Instructions* Jodi Hatfield RN [...] at patients earliest convienence documented in this encounterWestern Reserve Hospital07-28-2022 History of Present illness Narrative* Michelle [...] 03/13/2011 no retinopathy detected -both eyes - [place] - return in 1 year - Dr. [...] by mouth two times a week. Lmefol Rd-xcaueb-nnC54-algal (CEREFOLIN NAC, ALGAL OIL,) 6 mg-600 mg- [...] Abs Lymph 1.00 - 4.00 k/uL 1.40 Medina% % 11.2 Abs [place] <0.87 k/uL 0.40 Eosin% % 2.2 Abs [...] Liquid Nitrogen via cryostat spray gun to Nettie. 2 lesion(s) treated. Patient tolerated well. Wound [...] of service preparing to see the patient, vfdr-vn-qnng patient care, completing clinical documentation, obtaining and/or reviewing separately obtained history, performing a medically appropriate examination and counseling and educating the patient/family/child care worker Michelle Choudhary MD documented in this encounterWestern Reserve Hospital07-01-2022 History of Present illness Narrative* Rosendo [...] 03/13/2011 no retinopathy detected -both eyes - [place] - return in 1 year - Dr. [...] by mouth two times a week. Lmefol Ux-wzrsho-ajS61-algal (CEREFOLIN NAC, ALGAL OIL,) 6 mg-600 mg- [...] which included preparing to see the patient, surq-vy-yyvc patient care, completing clinical documentation, obtaining and/or reviewing separately obtained history, counseling and educating the patient/family/caregiver, independently interpretin g results (not separately reported) and communicating results to the patient/family/caregiver. Electronically Signed: Rosendo Rodgers MD April 17, 2022 11:04 AM documented in this encounterWestern Reserve Hospital06-28-2022 History of Present illness Narrative* Susannah Clemente MD - 04/14/2022 10:09 AM EDT Patient presents with: Follow Up Had appointment with hematology, changed the date. At home highest blood pressure is low 130's. Forgot meds this morning. Ever since diagnosed with congestive heart failure, had some concerns. States the Sales Record Clerk didn't have any significant. Would like to [...] 4.00 k/uL 2.30 1.53 1.79 1.92 1.77 Medina% % 10.9 10.5 11.8 11.5 12.1 Abs [place] <0.87 k/uL 0.54 0.42 0.70 0.48 0.51 [...] a consultation with the heart failure [facility]. Referred reviewed last echo with normal left [...] slot.. Susannah Clemente MD documented in this encounterWestern Reserve Hospital06-07-2022 History of Present illness Narrative* Erwin [...] 24, 2022 11:19 AM documented in this encounterWestern Reserve Hospital05-05-2022 Miscellaneous Notes* Telephone Encounter - Sally [...] Please assist in canceling. documented in this encounterWestern Reserve Hospital05-03-2022 History of Present illness Narrative* Leigh [...] 17, 2022 11:05 AM documented in this encounterWestern Reserve Hospital04-26-2022 History of Present illness Narrative* Kelsi Rosa OT/L - 02/10/2022 2:26 PM EDT Episode Visit [...] WITH LEVEL OF FUNCTION: Hand Strength L Public Health Training Assistant Position 2 (lbs): 36 lbs UE AROM [...] facilitated with verbal, visual and tactile cuing. Self-Fci Management: 1: Conitnue with comfort cool for [...] 43 ANSON Diaz, OTD documented in this encounterWestern Reserve Hospital04-19-2022 NoteHNO ID: [id number] Author: DEBORAH Saleem Service: ? Author Type: [...] as thumb continues to progress. 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 Pain: Pain Pain Level: [...] Therapeutic Exercise Treatment Minutes: 40 Laverne Helms OT/[id number] History of Present illness Narrative* DEBORAH Saleem [...] as thumb continues to progress. 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 Pain: Pain Pain Level: [...] Minutes: 40 DEBORAH Saleem documented in this encounterWestern Reserve Hospital04-12-2022 NoteHNO ID: [id number] Author: DEBORAH Saleem Service: ? Author Type: Occupational Therapist Type: Progress Notes Filed: 01/27/2022 12:27 PM Note Text: The patient did not show up for this appointment.[id number] History of Present illness Narrative* DEBORAH Saleem - 01/27/2022 12:26 PM EDT The patient did not show up for this appointment. documented in [facility] encounter[facility] Miscellaneous Notes* Addendum Note - DEBORAH Diaz - 01/20/2022 10:12 AM EDT Addended by: KELSI ROSA on: 01/20/2022 10:12 AM Modules accepted: Orders documented in this encounterWestern [facility]04-[facility] History of Present illness Narrative* DEBORAH [...] cool for day use. 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 Planned Interventions, Frequency, and Duration: 1x/week, 4 weeks Total Number of Visits Planned: 4 Planned Treatment Interventions: Custom orthosis fabrication;Prefabricated orthosis fitting;Self-retirement management (14974);Therapeutic exercise (40492) PLAN FOR NEXT VISIT: heat, motion, progress with strength (possible putty) SUBJECTIVE: 8 wks s/p arthroplasty and suspensionplasty of L thumb. Patient has been wearing OTS thumb spica on surgical thumb for day/night use. Reports as time goes on she is able to complete lightdaily tasks as thumb continues to progress. 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 Functional Limitations: lifting;heavy exertion;cleaning;dressing;cooking;carrying;pushing;pulling;gripping;weight [...] Location: Left thumb/wrist Edema Description: Mild Strength: Public Health Training Assistant Position 2;Pinch Meter Sensation: Denies tingling or numbness Hand Strength R Public Health Training Assistant Position 2 (lbs): 53 lbs L Public Health Training Assistant Position 2 (lbs): 20 lbs R Lateral [...] in squeezes, pinches, and finger add w/ [place] resistant eggs. Pt returned demo -written handout [...] 8-10 reps, hold for 10 sec. 2: [place] Egg: Squeezes, pinches (each finger), and squeezes [...] Minutes (timed and untimed codes) : 50 Kelsi Rosa OTR/L, OTD documented in this encounterWestern [facility] Hospital04-[facility] History of Present illness Narrative* Leigh [...] 20, 2022 10:15 AM documented in this encounterWestern [facility] Hospital03-29-[facility]22 NoteHNO ID: [id number] Author: DEBORAH Saleem Service: ? Author Type: [...] radial and palmar abduction 4: Soft sponge levers lace machine operator manipulate and pickling drum operator Skilled Intervention: Patient was educated in proper exercise technique and purpose for exercises. Skilled judgment was provided in selection of appropriate interventions. Billing Therapeutic Exercise Treatment Minutes: 40 Laverne Helms OT/[id number] NoteHNO ID: [id number] Author: Laverne Helms OT/Cathryn Service: ? Author [...] Billing Therapeutic Exercise Treatment Minutes: 45 Laverne Helms [id number] History of Past illness Narrative * Problem [...] creatine- 1.1-1.2) CK/CKMB negative. Patient transferred to [facility] for further evaluation. OSH Echo 10/2019 EF [...] of this encounter (statuses as of 01/30/2023) [facility] of [facility] illness Narrative* Problem [...] of this encounter (statuses as of 02/23/2023) [facility] of [facility] illness Narrative* Problem [...] creatine- 1.1-1.2) CK/CKMB negative. Patient transferred to [facility] for further evaluation. OSH Echo 10/2019 EF [...] of this encounter (statuses as of 03/24/2023) [facility] of Past illness Narrative* Problem [...] 1.1-1.2) CK/CKMB negative. [facility] OSH Echo 10/2019 EF [...] of this encounter (statuses as of 04/02/2023) [facility] of Past illness Narrative* Problem [...] creatine- 1.1-1.2) CK/CKMB negative. Patient transferred to [facility] for further evaluation. OSH Echo 10/2019 EF [...] of this encounter (statuses as of 04/08/2023) [facility] of Past illness Narrative* Problem [...] creatine- 1.1-1.2) CK/CKMB negative. Patient transferred to [facility] for further evaluation. OSH Echo 10/2019 EF [...] of this encounter (statuses as of 05/04/2023) [facility] Narrative* Problem [...] creatine- 1.1-1.2) CK/CKMB negative. Patient transferred to [facility] for further evaluation. OSH Echo 10/2019 EF [...] of this encounter (statuses as of 07/06/2023) [facility] Narrative* Problem [...] 1.1-1.2) CK/CKMB negative. [facility]. OSH Echo 10/2019 EF [...] of this encounter (statuses as of 07/16/2023) [facility] Narrative* Problem [...] 1.1-1.2) CK/CKMB negative. [facility]. OSH Echo 10/2019 EF [...] of this encounter (statuses as of 08/05/2023) [facility] Narrative* Problem [...] creatine- 1.1-1.2) CK/CKMB negative. Patient transferred to [facility] for further evaluation. OSH Echo 10/2019 EF [...] of this encounter (statuses as of 08/06/2023) [facility] of Past illness Narrative* Problem [...] creatine- 1.1-1.2) CK/CKMB negative. Patient transferred to [facility] for further evaluation. OSH Echo 10/2019 EF [...] of this encounter (statuses as of 08/17/2023) [facility] Narrative* Problem [...] 1.1-1.2) CK/CKMB negative. [facility]. OSH Echo 10/2019 EF [...] of this encounter (statuses as of 08/18/2023) [facility] Narrative* Problem [...] creatine- 1.1-1.2) CK/CKMB negative. Patient transferred to [facility] for further evaluation. OSH Echo 10/2019 EF [...] of this encounter (statuses as of 08/20/2023) [facility] Narrative* Problem [...] creatine- 1.1-1.2) CK/CKMB negative. Patient transferred to [facility] for further evaluation. OSH Echo 10/2019 EF [...] of this encounter (statuses as of 08/20/2023) [facility] Narrative* Problem [...] creatine- 1.1-1.2) CK/CKMB negative. Patient transferred to [facility] for further evaluation. OSH Echo 10/2019 EF [...] of this encounter (statuses as of 08/20/2023) [facility] Narrative* Problem [...] 1.1-1.2) CK/CKMB negative. [facility]. OSH Echo 10/2019 EF [...] of this encounter (statuses as of 08/20/2023) [facility] Narrative* Problem [...] creatine- 1.1-1.2) CK/CKMB negative. Patient transferred to [facility] for further evaluation. OSH Echo 10/2019 EF [...] of this encounter (statuses as of 08/20/2023) [facility] Narrative* Problem [...] creatine- 1.1-1.2) CK/CKMB negative. Patient transferred to [facility] for further evaluation. OSH Echo 10/2019 EF [...] of this encounter (statuses as of 08/22/2023) [facility] Narrative* Problem [...] creatine- 1.1-1.2) CK/CKMB negative. Patient transferred to [facility] for further evaluation. OSH Echo 10/2019 EF [...] of this encounter (statuses as of 08/31/2023) [facility] Narrative* Problem [...] creatine- 1.1-1.2) CK/CKMB negative. Patient transferred to [facility] for further evaluation. OSH Echo 10/2019 EF [...] of this encounter (statuses as of 09/02/2023) [facility] Narrative* Problem [...] creatine- 1.1-1.2) CK/CKMB negative. Patient transferred to [facility] for further evaluation. OSH Echo 10/2019 EF [...] of this encounter (statuses as of 09/08/2023) [facility] Narrative* Problem [...] creatine- 1.1-1.2) CK/CKMB negative. Patient transferred to [facility] for further evaluation. OSH Echo 10/2019 EF [...] of this encounter (statuses as of 09/10/2023) [facility] Narrative* Problem [...] creatine- 1.1-1.2) CK/CKMB negative. Patient transferred to [facility] for further evaluation. OSH Echo 10/2019 EF [...] of this encounter (statuses as of 09/21/2023) [facility] Narrative* Problem [...] creatine- 1.1-1.2) CK/CKMB negative. Patient transferred to [facility] for further evaluation. OSH Echo 10/2019 EF [...] of this encounter (statuses as of 10/01/2023) [facility] Narrative* Problem [...] 1.1-1.2) CK/CKMB negative. [facility] OSH Echo 10/2019 EF [...] of this encounter (statuses as of 10/08/2023) [facility] Narrative* Problem [...] creatine- 1.1-1.2) CK/CKMB negative. Patient transferred to [facility] for further evaluation. OSH Echo 10/2019 EF [...] of this encounter (statuses as of 12/20/2023) [facility] Narrative* Problem [...] creatine- 1.1-1.2) CK/CKMB negative. Patient transferred to [facility] for further evaluation. OSH Echo 10/2019 EF [...] of this encounter (statuses as of 12/31/2023) [facility] Narrative* Problem [...] creatine- 1.1-1.2) CK/CKMB negative. Patient transferred to [facility] for further evaluation. OSH Echo 10/2019 EF [...] of this encounter (statuses as of 12/31/2023) [facility] Narrative* Problem [...] creatine- 1.1-1.2) CK/CKMB negative. Patient transferred to [facility] for further evaluation. OSH Echo 10/2019 EF [...] of this encounter (statuses as of 01/05/2024) [facility] Narrative* Problem [...] creatine- 1.1-1.2) CK/CKMB negative. Patient transferred to [facility] for further evaluation. OSH Echo 10/2019 EF [...] of this encounter (statuses as of 01/10/2024) [facility] Narrative* Problem [...] creatine- 1.1-1.2) CK/CKMB negative. Patient transferred to [facility] for further evaluation. OSH Echo 10/2019 EF [...] of this encounter (statuses as of 01/12/2024) [facility] Narrative* Problem [...] of this encounter (statuses as of 01/18/2024) [facility] Narrative* Problem [...] creatine- 1.1-1.2) CK/CKMB negative. Patient transferred to [facility] for further evaluation. OSH Echo 10/2019 EF [...] of this encounter (statuses as of 01/29/2024) [facility] Present [facility] Narrative* Shavon Worrell RT(R) - 08/18/2021 11:30 AM EDT Radiology [...] 18, 2021 11:51 AM documented in this encounterWestern [facility] Hospital03-09-[facility] History of Present illness Narrative* Rahul Adams (Rt), [facility] - 12/24/2020 1:20 PM EST Radiology Service [...] 24, 2020 1:12 PM documented in this encounterWestern [facility] Hospital10-13-[facility] History of Present illness Narrative* July Walls Tech (Rt) - 07/30/2020 11:30 AM EDT Radiology Service [...] 30, 2020 12:14 PM documented in this encounterWestern [facility]03-[facility] History of Past illness Narrative* Problem [...] creatine- 1.1-1.2) CK/CKMB negative. Patient transferred to [facility] for further evaluation. OSH Echo 10/2019 EF [...] of this encounter (statuses as of 01/20/2022) [facility] Narrative* Problem [...] creatine- 1.1-1.2) CK/CKMB negative. Patient transferred to [facility] for further evaluation. OSH Echo 10/2019 EF [...] of this encounter (statuses as of 01/20/2022) [facility] Narrative* Problem [...] creatine- 1.1-1.2) CK/CKMB negative. Patient transferred to [facility] for further evaluation. OSH Echo 10/2019 EF [...] of this encounter (statuses as of 01/27/2022) [facility] Narrative* Problem [...] creatine- 1.1-1.2) CK/CKMB negative. Patient transferred to [facility] for further evaluation. OSH Echo 10/2019 EF [...] of this encounter (statuses as of 02/04/2022) [facility] Narrative* Problem [...] creatine- 1.1-1.2) CK/CKMB negative. Patient transferred to [facility] for further evaluation. OSH Echo 10/2019 EF [...] of this encounter (statuses as of 02/10/2022) [facility] Narrative* Problem [...] creatine- 1.1-1.2) CK/CKMB negative. Patient transferred to [facility] for further evaluation. OSH Echo 10/2019 EF [...] of this encounter (statuses as of 02/17/2022) [facility] Narrative* Problem [...] creatine- 1.1-1.2) CK/CKMB negative. Patient transferred to [facility] for further evaluation. OSH Echo 10/2019 EF [...] of this encounter (statuses as of 02/19/2022) [facility] Narrative* Problem [...] 1.1-1.2) CK/CKMB negative. [facility]. OSH Echo 10/2019 EF [...] of this encounter (statuses as of 03/24/2022) [facility] Narrative* Problem [...] creatine- 1.1-1.2) CK/CKMB negative. Patient transferred to [facility] for further evaluation. OSH Echo 10/2019 EF [...] of this encounter (statuses as of 04/14/2022) [facility] Narrative* Problem [...] creatine- 1.1-1.2) CK/CKMB negative. Patient transferred to [facility] for further evaluation. OSH Echo 10/2019 EF [...] of this encounter (statuses as of 04/17/2022) [facility] Narrative* Problem [...] creatine- 1.1-1.2) CK/CKMB negative. Patient transferred to [facility] for further evaluation. OSH Echo 10/2019 EF [...] of this encounter (statuses as of 05/14/2022) [facility] Narrative* Problem [...] creatine- 1.1-1.2) CK/CKMB negative. Patient transferred to [facility] for further evaluation. OSH Echo 10/2019 EF [...] of this encounter (statuses as of 05/18/2022) [facility] Narrative* Problem [...] creatine- 1.1-1.2) CK/CKMB negative. Patient transferred to [facility] for further evaluation. OSH Echo 10/2019 EF [...] of this encounter (statuses as of 2022) [facility] Narrative* Problem [...] creatine- 1.1-1.2) CK/CKMB negative. Patient transferred to [facility] for further evaluation. OSH Echo 10/2019 EF [...] and LS spine VISUAL REFRACTION ERROR 08/26/2007 03/24/20 16 Sleep disturbance, unspecified 08/26/2007 0 01/09/2016 [...] of this encounter (statuses as of 06/01/2022) [facility] Narrative* Problem [...] of this encounter (statuses as of 07/16/2022) [facility] Narrative* Problem [...] creatine- 1.1-1.2) CK/CKMB negative. Patient transferred to [facility] for further evaluation. OSH Echo 10/2019 EF [...] of this encounter (statuses as of 07/22/2022) [facility] Narrative* Problem [...] creatine- 1.1-1.2) CK/CKMB negative. Patient transferred to [facility] for further evaluation. OSH Echo 10/2019 EF [...] of this encounter (statuses as of 08/06/2022) [facility] Narrative* Problem [...] creatine- 1.1-1.2) CK/CKMB negative. Patient transferred to [facility] for further evaluation. OSH Echo 10/2019 EF [...] of this encounter (statuses as of 08/08/2022) [facility] Narrative* Problem [...] creatine- 1.1-1.2) CK/CKMB negative. Patient transferred to [facility] for further evaluation. OSH Echo 10/2019 EF [...] of this encounter (statuses as of 09/02/2022) [facility] Narrative* Problem [...] of this encounter (statuses as of 09/11/2022) [facility]arrative* Problem [...] creatine- 1.1-1.2) CK/CKMB negative. Patient transferred to [facility] for further evaluation. OSH Echo 10/2019 EF [...] loss 08/26/2007 016 Irritable bowel syndrome 08/26/2007 12/03/2 020 Anemia, unspecified 06/09/2005 08/31/2008 Palpitations 07/06/2003 08/31/2008 Alopecia, unspecified 07/06/2003 08/31/2008 Diarrhea 08/31/2008 Need for prophylactic hormon e replacement therapy (postmenopausal) 09/10/2015 Unspecified vitamin D deficiency 06/29/2008 hx of breast cancer ER positive 09/10/2015 Dyspareunia 09/19/2020 Vaginismus 09/19/2020 documented as of this encounter (statuses as of 09/14/2022) [facility] Narrative* Problem [...] creatine- 1.1-1.2) CK/CKMB negative. Patient transferred to [facility] for further evaluation. OSH Echo 10/2019 EF [...] of this encounter (statuses as of 10/01/2022) [facility] Narrative* Problem [...] creatine- 1.1-1.2) CK/CKMB negative. Patient transferred to [facility] for further evaluation. OSH Echo 10/2019 EF [...] of this encounter (statuses as of 10/01/2022) [facility] Narrative* Problem [...] creatine- 1.1-1.2) CK/CKMB negative. Patient transferred to [facility] for further evaluation. OSH Echo 10/2019 EF [...] of this encounter (statuses as of 10/06/2022) [facility] Narrative* Problem [...] creatine- 1.1-1.2) CK/CKMB negative. Patient transferred to [facility] for further evaluation. OSH Echo 10/2019 EF [...] of this encounter (statuses as of 10/11/2022) [facility] Narrative* Problem [...] creatine- 1.1-1.2) CK/CKMB negative. Patient transferred to [facility] for further evaluation. OSH Echo 10/2019 EF [...] of this encounter (statuses as of 10/29/2022) [facility] Narrative* Problem [...] of this encounter (statuses as of 11/20/2022) [facility]* Problem [...] 1.1-1.2) CK/CKMB negative. [facility]. OSH Echo 10/2019 EF [...] of this encounter (statuses as of 11/24/2022) [facility] Narrative* Problem [...] creatine- 1.1-1.2) CK/CKMB negative. Patient transferred to [facility] for further evaluation. OSH Echo 10/2019 EF [...] of this encounter (statuses as of 01/06/2023) [facility] Narrative* Problem [...] creatine- 1.1-1.2) CK/CKMB negative. Patient transferred to [facility] for further evaluation. OSH Echo 10/2019 EF [...] of this encounter (statuses as of 01/08/2023) [facility] Thumb pain, left- Primary Primary osteoarthritis of first carpometacarpal joint of left hand Primary localized osteoarthrosis, hand [facility] Diagnosis Primary osteoarthritis of first carpometacarpal joint of left hand- Primary Primary localized osteoarthrosis, hand [facility] Diagnosis Thumb pain, left- Primary NO SHOW [facility] Diagnosis Thumb pain, left- Primary Primary osteoarthritis of first carpometacarpal joint of left hand Primary localized osteoarthrosis, hand documented [facility]* Diagnosis Thumb pain, left- Primary Primary osteoarthritis of first carpometacarpal joint of left hand Primary localized osteoarthrosis, hand documented [facility]* Diagnosis Primary osteoarthritis of first carpometacarpal joint of left hand- Primary Primary localized osteoarthrosis, hand documented [facility]* Diagnosis Primary osteoarthritis of first carpometacarpal joint of left hand- Primary Primary localized osteoarthrosis, hand [facility]* Diagnosis Anemia, unspecified type- Primary 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 disease, or chronic kidney disease (HCC) Unspecified hypertensive heart and kidney disease with heart failure and with chronic kidney disease stage I through stage IV, or unspecified Hypothyroidism, unspecified type [facility]* Diagnosis Anemia due to stage 3b chronic kidney disease (HCC)- Primary Anemia, unspecified type [facility]* Diagnosis Telogen effluvium- Primary Seborrheic dermatitis Seborrheic dermatitis, unspecified Encounter for medication monitoring Encounter for therapeutic drug monitoring Verruca vulgaris Viral warts, unspecified Hypothyroidism, unspecified type [facility] this [facility]* Diagnosis Chronic heart failure with preserved [...] Unspecified essential hypertension [facility]* Diagnosis Chronic heart failure with preserved ejection fraction (HFpEF) (HCC)- Primary [facility]* Diagnosis White coat syndrome with hypertension- Primary [facility]* Diagnosis Encounter for immunization- Primary Need [...] IV, or unspecified [facility] Diagnosis Telogen effluvium- Primary [facility] Diagnosis Chronic heart failure with preserved ejection fraction (HFpEF) (HCC)- Primary Essential hypertension Unspecified essential hypertension [facility]* Diagnosis Anemia due to stage 3b chronic kidney disease (HCC)- Primary [facility]* Diagnosis Anemia due to stage 3b chronic kidney disease (HCC)- Primary [facility] Anemia due to stage 3b chronic kidney disease (HCC)- Primary [facility] Diagnosis Pain with urination- Primary [facility]al colic [facility] Diagnosis Chronic heart failure with preserved ejection fraction (HCC)- Primary [facility] Diagnosis Trigger thumb of left hand- Primary Trigger finger (acquired) [facility] Diagnosis Fibrocystic breast changes of both breasts- Primary Dense breast Inconclusive mammogram Personal history of breast cancer Personal history of malignant neoplasm of breast Encounter for screening mammogram for breast cancer [facility] Diagnosis Difficulty swallowing pills- Primary Other symptoms involving digestive system Pharyngitis, unspecified etiology [facility] Diagnosis Chronic back pain, unspecified back location, unspecified back pain laterality- Primary [facility] Diagnosis Rib pain on right side- Primary Chest pain, unspecified Epigastric abdominal tenderness without rebound tenderness Thoracogenic scoliosis, unspecified spinal region [facility] Diagnosis Palpitation- Primary Palpitations [facility] Diagnosis Acute right-sided thoracic back pain- Primary [facility] Diagnosis Medicare annual wellness visit, subsequent- Primary Routine general medical examination at a health care facility Asymptomatic postmenopausal state Thoracogenic scoliosis, unspecified spinal region Chronic thoracic back pain, unspecified back pain laterality Decreased hearing of both ears Anemia due to stage 3b chronic kidney disease (HCC) Epigastric pain Abdominal pain, epigastric Hypothyroidism, unspecified type [facility] Diagnosis Asymptomatic postmenopausal state Medicare annual wellness visit, subsequent Routine general medical examination at a health care facility [facility] Diagnosis 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 Degenerative scoliosis in adult patient Chronic thoracic back pain, unspecified back pain laterality [facility] Diagnosis Sensorineural hearing loss, bilateral- Primary [facility] Diagnosis Telogen effluvium [facility] Diagnosis Acute right-sided thoracic back pain [facility] Diagnosis Epigastric abdominal tenderness without rebound tenderness [facility] Diagnosis Medicare annual wellness visit, subsequent Routine general medical examination at a health care facility Epigastric pain Abdominal pain, epigastric [facility] Diagnosis Urinary retention Retention of urine, unspecified [facility] Diagnosis Exertional dyspnea Other dyspnea and respiratory abnormality [facility] Diagnosis Chronic thoracic back pain, unspecified back pain laterality- Primary 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 [facility] Diagnosis Chronic diastolic (congestive) heart failure (HCC)- Primary [facility] Diagnosis Chronic thoracic back pain, unspecified back pain laterality- Primary Degenerative scoliosis in adult patient 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 [facility] Diagnosis Essential hypertension Unspecified essential hypertension [facility] noteNo assessment information availableWThe [facility] Work Phone: Evaluation note* Diagnosis Personal history of malignant neoplasm of breast- Primary Encounter for screening mammogram for malignant neoplasm of breast Other screening mammogram [facility] Diagnosis Encounter for screening mammogram for breast cancer- Primary [facility] Diagnosis Essential hypertension Unspecified essential hypertension [facility] Diagnosis Situational depression- Primary Adjustment disorder with depressed mood [facility] Diagnosis Abnormal mammogram- Primary Abnormal mammogram, unspecified Fibrocystic breast changes of both breasts Dense breast Inconclusive mammogram Personal history of breast cancer Personal history of malignant neoplasm of breast [facility] Diagnosis 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 Collagenous colitis Other and unspecified noninfectious gastroenteritis and colitis [facility] Diagnosis Essential hypertension Unspecified essential hypertension [facility] Diagnosis Situational depression- Primary Adjustment disorder [...] disease (HCC) (HCC) [facility] Diagnosis Chronic diastolic (congestive) heart failure (HCC)- Primary [facility]* Diagnosis Hypothyroidism, unspecified type [facility] Diagnosis Essential hypertension- Primary Unspecified essential hypertension Atherosclerosis of [place] coronary artery of [place] heart without angina pectoris Changes in vascular [...] diastolic (congestive) heart failure (HCC) Atherosclerosis of [place] coronary artery of [place] heart without angina pectoris Essential hypertension Unspecified [...] chronic kidney disease (HCC) (HCC) Atherosclerosis of [place] coronary artery of [place] heart without angina pectoris Exertional dyspnea Other [...] arm and forearm [facility] Diagnosis Essential hypertension- Primary Unspecified essential hypertension Atherosclerosis of [place] coronary artery of [place] heart without angina pectoris Changes in vascular [...] diastolic (congestive) heart failure (HCC) Atherosclerosis of [place] coronary artery of [place] heart without angina pectoris Essential hypertension Unspecified [...] chronic kidney disease (HCC) (HCC) Atherosclerosis of [place] coronary artery of [place] heart without angina pectoris Exertional dyspnea Other [...] mood Dysuria- Primary [facility] Diagnosis Essential hypertension- Primary Unspecified essential hypertension Atherosclerosis of [place] coronary artery of [place] heart without angina pectoris Changes in vascular [...] diastolic (congestive) heart failure (HCC) Atherosclerosis of [place] coronary artery of [place] heart without angina pectoris Essential hypertension Unspecified [...] chronic kidney disease (HCC) (HCC) Atherosclerosis of [place] coronary artery of [place] heart without angina pectoris Exertional dyspnea Other [...] Urinary frequency- Primary [facility] Diagnosis Essential hypertension- Primary Unspecified essential hypertension Atherosclerosis of [place] coronary artery of [place] heart without angina pectoris Changes in vascular [...] diastolic (congestive) heart failure (HCC) Atherosclerosis of [place] coronary artery of [place] heart without angina pectoris Essential hypertension Unspecified [...] chronic kidney disease (HCC) (HCC) Atherosclerosis of [place] coronary artery of [place] heart without angina pectoris Exertional dyspnea Other [...] for breast cancer [facility] Diagnosis Essential hypertension- Primary Unspecified essential hypertension Atherosclerosis of [place] coronary artery of [place] heart without angina pectoris Changes in vascular [...] diastolic (congestive) heart failure (HCC) Atherosclerosis of [place] coronary artery of [place] heart without angina pectoris Essential hypertension Unspecified [...] chronic kidney disease (HCC) (HCC) Atherosclerosis of [place] coronary artery of [place] heart without angina pectoris Exertional dyspnea Other [...] hematuria Acute cystitis [facility] Diagnosis Essential hypertension- Primary Unspecified essential hypertension Atherosclerosis of [place] coronary artery of [place] heart without angina pectoris Changes in vascular [...] diastolic (congestive) heart failure (HCC) Atherosclerosis of [place] coronary artery of [place] heart without angina pectoris Essential hypertension Unspecified [...] chronic kidney disease (HCC) (HCC) Atherosclerosis of [place] coronary artery of [place] heart without angina pectoris Exertional dyspnea Other [...] with depressed mood [facility] Diagnosis Essential hypertension- Primary Unspecified essential hypertension Atherosclerosis of [place] coronary artery of [place] heart without angina pectoris Changes in vascular [...] diastolic (congestive) heart failure (HCC) Atherosclerosis of [place] coronary artery of [place] heart without angina pectoris Essential hypertension Unspecified [...] chronic kidney disease (HCC) (HCC) Atherosclerosis of [place] coronary artery of [place] heart without angina pectoris Exertional dyspnea Other [...] IV, or unspecified [facility] Diagnosis Essential hypertension- Primary Unspecified essential hypertension Atherosclerosis of [place] coronary artery of [place] heart without angina pectoris Changes in vascular [...] diastolic (congestive) heart failure (HCC) Atherosclerosis of [place] coronary artery of [place] heart without angina pectoris Essential hypertension Unspecified [...] chronic kidney disease (HCC) (HCC) Atherosclerosis of [place] coronary artery of [place] heart without angina pectoris Exertional dyspnea Other [...] and respiratory abnormality [facility] Diagnosis Essential hypertension- Primary Unspecified essential hypertension Atherosclerosis of [place] coronary artery of [place] heart without angina pectoris Changes in vascular [...] diastolic (congestive) heart failure (HCC) Atherosclerosis of [place] coronary artery of [place] heart without angina pectoris Essential hypertension Unspecified [...] chronic kidney disease (HCC) (HCC) Atherosclerosis of [place] coronary artery of [place] heart without angina pectoris Exertional dyspnea Other [...] of urination- Primary [facility] Diagnosis Essential hypertension- Primary Unspecified essential hypertension Atherosclerosis of [place] coronary artery of [place] heart without angina pectoris Changes in vascular [...] diastolic (congestive) heart failure (HCC) Atherosclerosis of [place] coronary artery of [place] heart without angina pectoris Essential hypertension Unspecified [...] chronic kidney disease (HCC) (HCC) Atherosclerosis of [place] coronary artery of [place] heart without angina pectoris Exertional dyspnea Other [...] with depressed mood [facility] Diagnosis Essential hypertension- Primary Unspecified essential hypertension Atherosclerosis of [place] coronary artery of [place] heart without angina pectoris Changes in vascular [...] diastolic (congestive) heart failure (HCC) Atherosclerosis of [place] coronary artery of [place] heart without angina pectoris Essential hypertension Unspecified [...] chronic kidney disease (HCC) (HCC) Atherosclerosis of [place] coronary artery of [place] heart without angina pectoris Exertional dyspnea Other [...] with depressed mood [facility] Diagnosis Essential hypertension- Primary Unspecified essential hypertension Atherosclerosis of [place] coronary artery of [place] heart without angina pectoris Changes in vascular [...] diastolic (congestive) heart failure (HCC) Atherosclerosis of [place] coronary artery of [place] heart without angina pectoris Essential hypertension Unspecified [...] chronic kidney disease (HCC) (HCC) Atherosclerosis of [place] coronary artery of [place] heart without angina pectoris Exertional dyspnea Other [...] of breast Chronic diastolic (congestive) heart failure ([facility]) [facility] Diagnosis Essential hypertension- Primary Unspecified essential hypertension Atherosclerosis of [place] coronary artery of [place] heart without angina pectoris Changes in vascular [...] diastolic (congestive) heart failure (HCC) Atherosclerosis of [place] coronary artery of [place] heart without angina pectoris Essential hypertension Unspecified [...] chronic kidney disease (HCC) (HCC) Atherosclerosis of [place] coronary artery of [place] heart without angina pectoris Exertional dyspnea Other [...] Unspecified essential hypertension [facility] Diagnosis Essential hypertension- Primary Unspecified essential hypertension Atherosclerosis of [place] coronary artery of [place] heart without angina pectoris Changes in vascular [...] diastolic (congestive) heart failure (HCC) Atherosclerosis of [place] coronary artery of [place] heart without angina pectoris Essential hypertension Unspecified [...] chronic kidney disease (HCC) (HCC) Atherosclerosis of [place] coronary artery of [place] heart without angina pectoris Exertional dyspnea Other [...] failure (HCC)- Primary [facility] Diagnosis Essential hypertension- Primary Unspecified essential hypertension Atherosclerosis of [place] coronary artery of [place] heart without angina pectoris Changes in vascular [...] diastolic (congestive) heart failure (HCC) Atherosclerosis of [place] coronary artery of [place] heart without angina pectoris Essential hypertension Unspecified [...] chronic kidney disease (HCC) (HCC) Atherosclerosis of [place] coronary artery of [place] heart without angina pectoris Exertional dyspnea Other [...] Unspecified essential hypertension [facility] Diagnosis Essential hypertension- Primary Unspecified essential hypertension Atherosclerosis of [place] coronary artery of [place] heart without angina pectoris Changes in vascular [...] diastolic (congestive) heart failure (HCC) Atherosclerosis of [place] coronary artery of [place] heart without angina pectoris Essential hypertension Unspecified [...] chronic kidney disease (HCC) (HCC) Atherosclerosis of [place] coronary artery of [place] heart without angina pectoris Exertional dyspnea Other [...] (HCC) (HCC)- Primary [facility] Diagnosis Essential hypertension- Primary Unspecified essential hypertension Atherosclerosis of [place] coronary artery of [place] heart without angina pectoris Changes in vascular [...] diastolic (congestive) heart failure (HCC) Atherosclerosis of [place] coronary artery of [place] heart without angina pectoris Essential hypertension Unspecified [...] chronic kidney disease (HCC) (HCC) Atherosclerosis of [place] coronary artery of [place] heart without angina pectoris Exertional dyspnea Other [...] Unspecified essential hypertension [facility] Diagnosis Essential hypertension- Primary Unspecified essential hypertension Atherosclerosis of [place] coronary artery of [place] heart without angina pectoris Changes in vascular [...] diastolic (congestive) heart failure (HCC) Atherosclerosis of [place] coronary artery of [place] heart without angina pectoris Essential hypertension Unspecified [...] chronic kidney disease (HCC) (HCC) Atherosclerosis of [place] coronary artery of [place] heart without angina pectoris Exertional dyspnea Other [...] mood Telogen effluvium [facility] Diagnosis Essential hypertension- Primary Unspecified essential hypertension Atherosclerosis of [place] coronary artery of [place] heart without angina pectoris Changes in vascular [...] Primary Primary localized osteoarthrosis, lower leg [facility] Routine general medical examination at [...] diastolic (congestive) heart failure (HCC) Atherosclerosis of [place] coronary artery of [place] heart without angina pectoris Essential hypertension Unspecified [...] 3b chronic kidney disease (HCC) Atherosclerosis of [place] coronary artery of [place] heart without angina pectoris Exertional dyspnea Other [...] pain laterality- Primary [facility] Diagnosis Essential hypertension- Primary Unspecified essential hypertension Atherosclerosis of [place] coronary artery of [place] heart without angina pectoris Changes in vascular [...] diastolic (congestive) heart failure (HCC) Atherosclerosis of [place] coronary artery of [place] heart without angina pectoris Essential hypertension Unspecified [...] 3b chronic kidney disease (HCC) Atherosclerosis of [place] coronary artery of [place] heart without angina pectoris Exertional dyspnea Other [...] IV, or unspecified [facility] Diagnosis Essential hypertension- Primary Unspecified essential hypertension Atherosclerosis of [place] coronary artery of [place] heart without angina pectoris Changes in vascular [...] diastolic (congestive) heart failure (HCC) Atherosclerosis of [place] coronary artery of [place] heart without angina pectoris Essential hypertension Unspecified [...] 3b chronic kidney disease (HCC) Atherosclerosis of [place] coronary artery of [place] heart without angina pectoris Exertional dyspnea Other [...] Adjustment disorder with depressed mood Atherosclerosis of [place] coronary artery of [place] heart without angina pectoris- Primary Chronic diastolic [...] has been stable. [facility] Diagnosis Essential hypertension- Primary Unspecified essential hypertension Atherosclerosis of [place] coronary artery of [place] heart without angina pectoris Changes in vascular [...] diastolic (congestive) heart failure (HCC) Atherosclerosis of [place] coronary artery of [place] heart without angina pectoris Essential hypertension Unspecified [...] 3b chronic kidney disease (HCC) Atherosclerosis of [place] coronary artery of [place] heart without angina pectoris Exertional dyspnea Other [...] Adjustment disorder with depressed mood Atherosclerosis of [place] coronary artery of [place] heart without angina pectoris- Primary Chronic diastolic [...] kidney disease (HCC) [facility] Diagnosis Onset Date Resolution Status Admit Date Chest pressure acute April 09, 2025 11:42pm Elevated troponin acute April 092024 11:42pm Chronic kidney disease chronic Ju ne 2024 11:42pm HTN (hypertension) chronic March 192024 11:42pm [facility] Work Phone: Hospital Discharge instructions Additional Instructions Please return for any worsening of your symptoms. Stay well-hydrated.[facility] Work Phone: Reason for referral (narrative)* Diagnostic Procedure Only (Routine) - Authorized Specialty Diagnoses / Procedures Referred By Contac t Referred To Contact [facility] IMAG[facility] Diagnoses Urinary retention Procedures US PELVIS BLADDER US PELVIC NONOBSTETRIC IMAGE DCMTN LIMITED/F/U Susannah Clemente MD [address] [place] [address] Us Imaging Referral ID Status Reason Start Date Expiration Date Visits Requested Visits Authorized [id number] Authorized Auto-Generat ed Referral 2 10/31/2023 1 1 * Diagnostic Procedure Only (Routine) - Authorized Specialty Diagnoses / Procedures Referred By Tanya t Referred To Contact [facility] IMAG[facility] Diagnoses Urinary retention Procedures US KIDNEY/BLADDER US RETROPERITONEAL REAL TIME W/IMAGE COMPLETE Susannah Clemente MD [address] [place] [address] Us Imaging Referral ID Status Reason Start Date Expiration Date Visits Requested Visits Authorized [id number] Authorized Auto-Generat ed Referral 2 10/31/2023 1 1 [facility] for referral (narrative)* Outpatient Procedure (Routine) - Authorized Specialty Diagnoses / Procedures Referred By Tanya t Referred To Contact [facility] Diagnoses Chronic heart failure with preserved ejection fraction (HCC) Procedures ECHO ECHO TTHRC R-T 2D W/WOM-MODE COMPL SPEC&COLR Le Rebollar APRN.POWER SYSTEM ENGINEER [address] [id number] [facility] [address] [place] [address] Referral ID Status Reason Start Date Expiration Date Visits Requested Visits Authorized [id number] Authorized Auto-Generat ed Referral 04/02/2023 11/20/2023 1 1 [facility] for referral (narrative)* Diagnostic Procedure Only (Routine) - Pending Review Specialty Diagnoses / Procedures Referred By Tanya rodriguez Referred To Contact [facility] Diagnoses Encounter for screening mammogram for breast cancer Procedures NICOLE SCREENING W MICHELLE SCREENING DIGITAL BREAST TOMOSYNTHESIS BI SCREENING MAMMOGRAPHY BI 2-VIEW BREAST INC Alicia Ochoa APRN.POWER SYSTEM ENGINEER [address] [place] [address] [facility] [address] [place] [address] Referral ID Status Reason Start Date Expiration Date Visits Requested Visits Authorized [id number] Pending Review Auto-Generat ed Referral 01/05/2023 02/04/2024 1 1 [facility] for referral (narrative)* Diagnostic Procedure Only (Routine) - Pending Review Specialty Diagnoses / Procedures Referred By Contac t Referred To Contact [facility] Diagnoses Medicare annual wellness visit, subsequent Epigastric pain Procedures NM HEPATOBILIARY W EF AND/OR RX HEPATOBIL SYST IMAG INC GB W/PHARMA INTERVENJ Susnanah Clemente MD [address] [place] [address] [facility] [address] [place] [address] Referral ID Status Reason Start Date Expiration Date Visits Requested Visits Authorized [id number] Pending Review Auto-Generat ed Referral 07/05/2023 08/03/2024 1 1 * Consult, Test, Treat (Routine) - Authorized Specialty Diagnoses / Procedures Referred By Contac t Referred To Contact Diagnoses Medicare annual wellness visit, subsequent Decreased hearing of both ears Procedures HEARING TEST/AUDIOGRAM COMPRE AUDIOMETRY THRESHOLD EVAL SP ESTEBANIJ Susannah Clemente MD [address] [place] [address] [facility] [address] [place] [address] Referral ID Status Reason Start Date Expiration Date Visits Requested Visits Authorized [id number] Authorized Auto-Generat ed Referral 07/05/2023 10/03/2023 1 1 * Consult, Test, Treat (Routine) - Authorized Specialty Diagnoses / Procedures Referred By Contac t Referred To Contact [facility] [place] Diagnoses Medicare annual wellness visit, subsequent Thoracogenic scoliosis, unspecified spinal region Chronic thoracic back pain, unspecified back pain laterality Procedures [facility] OFF[facility]/OUTPATIENT [facility] 60-74 MINUTES Susannah Clemente MD [address] [place] [address] Referral ID Status Reason Start Date Expiration Date Visits Requested Visits Authorized [id number] Authorized PCP Requested Referral 07/05/2023 07/04/2024 1 1 [facility] for referral (narrative)* Diagnostic Procedure Only (Routine) - Closed Specialty Diagnoses / Procedures Referred By Contac t Referred To Contact XR IMAGING Diagnoses Acute right-sided thoracic back pain Procedures XR THORACIC GENERAL 3V AP/LAT/SWIMMERS RADEX SPINE THORACIC 3 VIEWS Susannah Clemente MD [address] [place] [address] [place] [address] Referral ID Status Reason Start Date Expiration Date V isits Requested Visits Authorized [id number] Closed Auto-Generate d Referral 03/08/2023 04/06/2024 1 1 * Diagnostic Procedure Only (Routine) - Closed Specialty Diagnoses / Procedures Referred By Contac t Referred To Contact XR IMAGING Diagnoses Acute right-sided thoracic back pain Procedures XR RIBS/CHEST 3V AP RIB/OBLS/CXR RIGHT RADEX RIBS UNI W/POSTEROANT CH MINIMUM 3 VIEWS Susannah Clemente MD [address] [place] [address] [place] [address] Referral ID Status Reason Start Date Expiration Date V isits Requested Visits Authorized [id number] Closed Auto-Generate d Referral 03/08/2023 04/06/2024 1 1 [facility] for referral (narrative)* Diagnostic Procedure Only (Routine) - Closed Specialty Diagnoses / Procedures Referred By Contac t Referred To Contact US IMAGING Diagnoses Epigastric abdominal tenderness without rebound tenderness Procedures US ABD RIGHT UPPER QUADRANT US ABDOMINAL REAL TIME W/IMAGE LIMITED Susannah Clemente MD [address] [place] [address] Us Imaging [place] [address] Referral ID Status Reason Start Date Expiration Date V isits Requested Visits Authorized [id number] Closed Auto-Generate d Referral 03/23/2023 04/21/2024 1 1 [facility] for referral (narrative)* Diagnostic Procedure Only (Routine) - Closed Specialty Diagnoses / Procedures [facility] To Contact MOLECULAR & FUNCTIONAL IMAGING Diagnoses Medicare annual wellness visit, subsequent Epigastric pain Procedures NM HEPATOBILIARY W EF AND/OR RX HEPATOBIL SYST IMAG INC GB W/PHARMA INTERVENJ Susannah Clemente MD [address] [place] [address] Molecular & Functional Imaging [address] [place] [address] Referral ID Status Reason Start Date Expiration Date V isits Requested Visits Authorized [id number] Closed Auto-Generate d Referral 07/05/2023 08/03/2024 1 1 [facility] for referral (narrative)* Diagnostic Procedure Only (Routine) - Closed Specialty Diagnoses / Procedures [facility] Referred To Contact US IMAGING Diagnoses Urinary retention Procedures US KIDNEY/BLADDER US RETROPERITONEAL REAL TIME W/IMAGE COMPLETE Susannah Clemente MD [address] [place] [address] Us Imaging [facility] Referral ID Status Reason Start Date Expiration Date V isits Requested Visits Authorized [id number] Closed Auto-Generate d Referral 10/01/2022 10/31/2023 1 1 [facility] for referral (narrative)* Diagnostic Procedure Only (Routine) - Pending Review Specialty Diagnoses / Procedures Referred By Contac t Referred To Contact BR IMAGING Diagnoses Personal history of malignant neoplasm of breast Encounter for screening mammogram for malignant neoplasm of breast Procedures NICOLE SCREENING W MICHELLE SCREENING DIGITAL BREAST TOMOSYNTHESIS BI SCREENING MAMMOGRAPHY BI 2-VIEW BREAST INC CAD Ruby Hurst PA-C [address] [place] [address] Br Imaging [address] [place] [address] Referral ID Status Reason Start Date Expiration Date Visits Requested Visits Authorized [id number] Pending Review Auto-Generat ed Referral 12/20/2023 01/18/2025 1 1 [facility] for referral (narrative)* Diagnostic Procedure Only (Routine) - Authorized Specialty Diagnoses / Procedures Referred By Tanya t Referred To Contact BR IMAGING Diagnoses Encounter for screening mammogram for breast cancer Procedures NICOLE SCREENING W MICHELLE SCREENING DIGITAL BREAST TOMOSYNTHESIS BI SCREENING MAMMOGRAPHY BI 2-VIEW BREAST INC CAD Alicia Hylton APRN.POWER SYSTEM ENGINEER [address] [place] [address] Br Imaging [address] [place] [address] Referral ID Status Reason Start Date Expiration Date Visits Requested Visits Authorized [id number] Authorized Auto-Generat ed Referral 12/31/2023 01/29/2025 1 1 [facility] for referral (narrative)* Diagnostic Procedure Only (Routine) - Authorized Specialty Diagnoses / Procedures Referred By Tanya t Referred To Contact BR IMAGING Diagnoses Abnormal mammogram Procedures US BREAST LTD RIGHT US BREAST UNI REAL TIME WITH IMAGE LIMITED Alicia Hylton APRN.CNP [address] [place] [address] Br Imaging [address] [place] [address] Referral ID Status Reason Start Date Expiration Date Visits Requested Visits Authorized [id number] Authorized Auto-Generat ed Referral 01/10/2024 02/08/2025 1 1 * Diagnostic Procedure Only (Routine) - Authorized Specialty Diagnoses / Procedures Referred By Tanya t Referred To Contact BR IMAGING Diagnoses Abnormal mammogram Procedures NICOLE DIAGNOSTIC RIGHT DIAGNOSTIC MAMMOGRAPHY COMPUTER-AIDED DETCJ UNI Alicia Hylton APRN.CNP [address] [place] [address] Br Imaging [address] [place] [address] Referral ID Status Reason Start Date Expiration Date Visits Requested Visits Authorized [id number] Authorized Auto-Generat ed Referral 01/10/2024 02/08/2025 1 1 [facility] for referral (narrative)* Outpatient Procedure (Routine) - Pending Review Specialty Diagnoses / Procedures Referred By Tanya rodriguez Referred To Contact [facility] [place] Diagnoses Chronic diastolic (congestive) heart failure (HCC) Procedures ECHO ECHO TTHRC R-T 2D W/WOM-MODE COMPL SPEC&COLR D Paul Bautista MD [address] [place] [address] [facility] [address] [address] Referral ID Status Reason Start Date Expiration Date Visits Requested Visits Authorized [id number] Pending Review Auto-Generat ed Referral 12/30/2024 03/30/2025 1 1 * Transition of Care (Routine) - Ref Not Required Specialty Diagnoses / Procedures Referred By Tanya rodriguez Referred To Contact [facility] [place] Procedures CARDIOVASCULAR MEDICINE OP FOLLOW UP APPT ORDER Paul Bautista MD [address] [place] [address] [facility] [address] [address] Referral ID Status Reason Start Date Expiration Date Visits Requested Visits Authorized [id number] Ref Not Required PCP Requested Referral 12/30/2024 03/30/2025 1 1 [facility] for referral (narrative)* Diagnostic Procedure Only (Routine) - Closed Specialty Diagnoses / Procedures Referred By Rubiaac t Referred To Contact BR IMAGING Diagnoses Encounter for screening mammogram for breast cancer Procedures NICOLE SCREENING W MICHELLE SCREENING DIGITAL BREAST TOMOSYNTHESIS BI SCREENING MAMMOGRAPHY BI 2-VIEW BREAST INC CAD Alicia Hylton, JUSTEN.POWER SYSTEM ENGINEER [address] [place] [address] Br Imaging [address] [place] [address] Referral ID Status Reason Start Date Expiration Date V isits Requested Visits Authorized [id number] Closed Auto-Generate d Referral 12/31/2023 01/29/2025 1 1 [facility] for referral (narrative)* Outpatient Procedure (Routine) - New Request Specialty Diagnoses / Procedures [facility] Diagnoses Exertional dyspnea Procedures STRESS ECHO TREADMILL ECHO TTHRC R-T 2D W/WO M-MODE COMPLETE REST&ST Susannah Clemente MD [address] [place] [address] [facility] [place] [address] [place] [address] Referral ID Status Reason Start Date Expiration Date Visits Requested Visits Authorized [id number] New Request Auto-Generat ed Referral 07/03/2024 07/03/2025 1 1 * Outpatient Procedure (Routine) - New Request Specialty Diagnoses / Procedures Referred By Contac t Referred To Contact [facility] Diagnoses 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 disease, or chronic kidney disease (HCC) Exertional dyspnea Procedures ECG COMPLETE ECG ROUTINE ECG W/LEAST 12 LDS W/I&R Susannah Clemente MD [address] [place] [address] [facility] [place] [address] [place] [address] Referral ID Status Reason Start Date Expiration Date Visits Requested Visits Authorized [id number] New Request Auto-Generat ed Referral 07/03/2024 07/03/2025 1 1 [facility] for referral (narrative)* Diagnostic Procedure Only (Routine) - Closed Specialty Diagnoses / Procedures Referred By Contac t Referred To Contact BR IMAGING Diagnoses Encounter for screening mammogram for breast cancer Procedures NICOLE SCREENING W MICHELLE SCREENING DIGITAL BREAST TOMOSYNTHESIS BI SCREENING MAMMOGRAPHY BI 2-VIEW BREAST INC CAD Alicia Hylton APRN.CNP [address] [place] [address] [facility] Imaging [address] [place] [address] Referral ID Status Reason Start Date Expiration Date V isits Requested Visits Authorized [id number] Closed Auto-Generate d Referral 01/05/2023 02/04/2024 1 1 [facility] for referral (narrative)* Diagnostic Procedure Only (Routine) - Closed Specialty Diagnoses / Procedures Referred By Contac t Referred To Contact BR IMAGING Diagnoses Encounter for screening mammogram for malignant neoplasm of breast Procedures NICOLE SCREENING W MICHELLE SCREENING BREAST DGTL MICHELLE UNI/BILAT ADD ON SCREENING MAMMOGRAPHY BI 2-VIEW BREAST INC Ai Brar PA-C [address] [place] [address] Br Imaging [address] [place] [address] Referral ID Status Reason Start Date Expiration Date V isits Requested Visits Authorized [id number] Closed Auto-Generate d Referral 07/08/2021 08/07/2022 1 1 [facility] for referral (narrative)* Outpatient Procedure (Routine) - Authorized Specialty Diagnoses / Procedures Referred By Tanya rodriguez Referred To Contact [facility] Diagnoses Chronic diastolic (congestive) heart failure (HCC) Procedures ECHO ECHO TTHRC R-T 2D W/WOM-MODE COMPL SPEC&COLR D Paul Bautista MD [address] [place] [id number] [facility] [place] [address] [place] [address] Referral ID Status Reason Start Date Expiration Date Visits Requested Visits Authorized [id number] Authorized Auto-Generat ed Referral 4 09/13/2025 1 1 [facility] for referral (narrative)No reason for referral information [facility]: Reason for visit Narrative* Diagnostic Procedure Only (Routine) - Closed Specialty Diagnoses / Procedures Referred By Tanya rodriguez Referred To Contact XR IMAGING Diagnoses Acute right-sided thoracic back pain Procedures XR RIBS/CHEST 3V AP RIB/OBLS/CXR RIGHT RADEX RIBS UNI W/POSTEROANT CH MINIMUM 3 VIEWS Susannah Clemente MD [address] [place] [address] Xr Imaging [place] [address] Referral ID Status Reason Start Date Expiration Date V isits Requested Visits Authorized [id number] Closed Auto-Generate d Referral 03/08/2023 04/06/2024 1 1 [facility] Summary Purpose Family History Relationship Condition Age at Onset Recorded Date/T jasen Unknown Family History?Heart Disease, Hypertension Unknown January 12, 2018 4:21pm Family History?Heart Disease, Hypertension Unknown February 01, 2018 9:41pm Relationship Condition Age at Onset Recorded Date/T jasen Unknown Family History?Heart Disease, Hypertension Unknown January 12, 2018 5:21pm Family History?Heart Disease, Hypertension Unknown February 01, 2018 10:41pm Advance Directives Documents on File Type Date Recorded Patient Shroud Line Tier Expl anation Advance Directive(s) 12/16/2021 4:08 PM Date Activated Date Inactivated Comments 10/18/2019 5:45 PM 10/22/2019 5:44 PM Question Answer Comments Full Code Order Discussed With: Patient Documents on File Type Date Recorded Patient Shroud Line Tier Expl anation Advance Directive(s) 12/16/2021 4:08 PM Latest Code Status on File Code Status Date Activated Date Inactivated Comments Full Code 10/18/2019 5:45 PM 10/22/2019 5:44 PM Full Code Order Discussed With: Patient Documents on File Type Date Recorded Patient Shroud Line Tier Expl anation Advance Directive(s) 12/16/2021 4:08 PM Advance Directive(s) 11/26/2021 7:30 AM Advance Directive(s) 10/31/2021 9:14 AM Advance Directive(s) 11/23/2019 3:35 PM Advance Directive(s) 11/22/2019 10:56 AM Advance Directive(s) 02/04/2018 12:21 PM Documents on File Type Date Recorded Patient Shroud Line Tier Expl anation Advance Directive(s) 12/16/2021 4:08 PM [...] Will No November 06 11:58am Power of Coal Screener No November 06, 2023 11:58am Date Activated Date Inactivated Comments 10/18/2019 5:45 PM 10/22/2019 5:44 PM Question Answer Comments Full Code Order Discussed With: Patient Advance Directive Response Recorded Date/ Time Do you have a Healthcare Power of Coal Screener? Yes April 09, 2025 7:26pm Hospital Course Note [facility] edical Records Department [address] [place] [address] Discharge Summary 10/18/19 1256 MR#: [id number] Acct: [id number] Name: ZENAIDA EVANS Rep #: [id number] : 1935 84 From: Migel Sharma MD [...] disease (HCC) Procedures CONSULT TO CARDIOLOGY OFFICE/OUTPATIENT [facility] 60-74 MINUTES Susannah Clemente MD [address] [place] [address] Referral ID Status Reason Start Date Expiration Date Visits Requested Visits Authorized [id number] Authorized PCP Requested Referral 04/14/2022 04/14/2023 1 1 Specialty Diagnoses / Procedures Referred By Contac t Referred To Contact Diagnoses Rib pain on right side Thoracogenic scoliosis, unspecified spinal region Procedures CONSULT FOR ACUPUNCTURE OFFICE/OUTPATIENT [facility] 60-[place] [address] [place] [address] Referral ID Status Reason Start Date Expiration Date Visits Requested Visits Authorized [id number] Pending Review PCP Requested Referral 03/23/2023 03/22/2024 1 1 Specialty Diagnoses / Procedures Referred By Contac t Referred To Contact US IMAGING Diagnoses Epigastric abdominal tenderness without rebound tenderness Procedures US ABD RIGHT UPPER QUADRANT US ABDOMINAL REAL TIME W/IMAGE LIMITED Susannah Clemente MD [address] [place] [address] Us Imaging Referral ID Status Reason Start Date Expiration Date Visits Requested Visits Authorized [id number] Authorized Auto-Generat ed Referral 03/23/2023 04/21/2024 1 1 Specialty Diagnoses / Procedures Referred By Contac t Referred To Contact [facility] Diagnoses Chronic thoracic back pain, unspecified back pain laterality 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 Procedures CONSULT TO PHYSICAL THERAPY PHYSICAL THERAPY EVALUATION HIGH COMPLEX 45 MINS Migel Garcia, PA-C [address] [place] [address] [facility] [place] [address] [place] [address] Referral ID Status Reason Start Date Expiration Date Visits Requested Visits Authorized [id number] Authorized PCP Requested Referral Auto-Generate d Referral 08/05/2024 99 99 Specialty Diagnoses / Procedures Referred By Contac t Referred To Contact Procedures HEARING TEST/AUDIOGRAM COMPRE AUDIOMETRY THRESHOLD EVAL SP Cristina Higgins, AUD [address] [place] [address] [facility] [address] [place] [address] Referral ID Status Reason Start Date Expiration Date Visits Requested Visits Authorized [id number] Pending Review Auto-Generat ed Referral 07/26/2023 07/26/2024 1 1 Specialty Diagnoses / Procedures Referred By Contac t Referred To Contact Procedures CARDIOVASCULAR MEDICINE OP FOLLOW UP APPT ORDER Paul Bautista MD [address] [place] [address] Referral ID Status Reason Start Date Expiration Date Visits Requested Visits Authorized [id number] Ref Not Required PCP Requested Referral 03/31/2024 09/29/2024 1 1 Specialty Diagnoses / Procedures Referred By Contac t Referred To Contact Psychology Diagnoses Situational depression Procedures CONSULT TO PSYCHOLOGY OFFICE/OUTPATIENT [facility] 60 MINUTES Susannah Clemente MD [address] [place] [address] Referral ID Status Reason Start Date Expiration Date Visits Requested Visits Authorized [id number] Pending Review PCP Requested Referral 01/04/2024 01/03/2025 [...] Chief Complaint cold sx, chest pain, nausea Chief Complaint Admit Date chest pain with ELEVATED TROPOPIN March 192024 11:42pm Reason for Visit Admit Date Chest pressure April 09, 2025 11:4 2pm Elevated troponin April 09, 2025 11:4 2pm Chronic kidney disease April 09, 2025 1 1:42pm HTN (hypertension) April 09, 2025 11:4 2pm Additional Source Comments INFORMATION SOURCE (unrecogn ized section and content) DATE CREATED AUTHOR 04/07/2018 [facility] DATE CREATED AUTHOR AUTHOR'S ORGANIZ ATION 04/07/2018 [facility] DATE CREATED AUTHOR AUTHOR'S ORGANIZ ATION 07/10/2020 [facility] DATE CREATED AUTHOR AUTHOR'S ORGANIZ ATION 10/04/2020 [facility] DATE CREATED AUTHOR AUTHOR'S ORGANIZ ATION 02/05/2022 [facility] DATE CREATED AUTHOR AUTHOR'S ORGANIZ ATION 04/05/2025 [facility] Source Comments (unrecognize d section and content) In the event this informatio n is protected by the Federal Confidentiality of Alcohol and Drug Abuse Patient Records regulations: The Federal rules restrict any use of the information to criminally investigate or prosecute any alcohol or drug abuse patient.[facility] the event this information is protected by the Federal Confidentiality of Alcohol and Drug Abuse Patient Records regulations: The Federal rules restrict any use of the information to criminally investigate or prosecute any alcohol or drug abuse patient.[facility] the event this information is protected by the Federal Confidentiality of Alcohol and Drug Abuse Patient Records regulations: The Federal rules restrict any use of the information to criminally investigate or prosecute any alcohol or drug abuse patient.[facility] the event this information is protected by the Federal Confidentiality of Alcohol and Drug Abuse Patient Records regulations: The Federal rules restrict any use of the information to criminally investigate or prosecute any alcohol or drug abuse patient.[facility] Hospital[facility] the event this information is protected by the Federal Confidentiality of Alcohol and Drug Abuse Patient Records regulations: The Federal rules restrict any use of the information to criminally investigate or prosecute any alcohol or drug abuse patient.[facility] the event this information is protected by the Federal Confidentiality of Alcohol and Drug Abuse Patient Records regulations: The Federal rules restrict any use of the information to criminally investigate or prosecute any alcohol or drug abuse patient.[facility] Hospital[facility] the event this information is protected by the Federal Confidentiality of Alcohol and Drug Abuse Patient Records regulations: The Federal rules restrict any use of the information to criminally investigate or prosecute any alcohol or drug abuse patient.[facility] the event this information is protected by the Federal Confidentiality of Alcohol and Drug Abuse Patient Records regulations: The Federal rules restrict any use of the information to criminally investigate or prosecute any alcohol or drug abuse patient.[facility] the event this information is protected by the Federal Confidentiality of Alcohol and Drug Abuse Patient Records regulations: The Federal rules restrict any use of the information to criminally investigate or prosecute any alcohol or drug abuse patient.[facility] Hospital[facility] the event this information is protected by the Federal Confidentiality of Alcohol and Drug Abuse Patient Records regulations: The Federal rules restrict any use of the information to criminally investigate or prosecute any alcohol or drug abuse patient.[facility] the event this information is protected by the Federal Confidentiality of Alcohol and Drug Abuse Patient Records regulations: The Federal rules restrict any use of the information to criminally investigate or prosecute any alcohol or drug abuse patient.[facility] the event this information is protected by the Federal Confidentiality of Alcohol and Drug Abuse Patient Records regulations: The Federal rules restrict any use of the information to criminally investigate or prosecute any alcohol or drug abuse patient.[facility] Hospital[facility] the event this information is protected by the Federal Confidentiality of Alcohol and Drug Abuse Patient Records regulations: The Federal rules restrict any use of the information to criminally investigate or prosecute any alcohol or drug abuse patient.[facility] the event this information is protected by the Federal Confidentiality of Alcohol and Drug Abuse Patient Records regulations: The Federal rules restrict any use of the information to criminally investigate or prosecute any alcohol or drug abuse patient.[facility] Hospital[facility] the event this information is protected by the Federal Confidentiality of Alcohol and Drug Abuse Patient Records regulations: The Federal rules restrict any use of the information to criminally investigate or prosecute any alcohol or drug abuse patient.[facility] HospitalIn the event this information is protected by the Federal Confidentiality of Alcohol and Drug Abuse Patient Records regulations: The Federal rules restrict any use of the information to criminally investigate or prosecute any alcohol or drug abuse patient.[facility] Hospital[facility] the event this information is protected by the Federal Confidentiality of Alcohol and Drug Abuse Patient Records regulations: The Federal rules restrict any use of the information to criminally investigate or prosecute any alcohol or drug abuse patient.[facility] Hospital[facility] the event this information is protected by the Federal Confidentiality of Alcohol and Drug Abuse Patient Records regulations: The Federal rules restrict any use of the information to criminally investigate or prosecute any alcohol or drug abuse patient.[facility] HospitalIn the event this information is protected by the Federal Confidentiality of Alcohol and Drug Abuse Patient Records regulations: The Federal rules restrict any use of the information to criminally investigate or prosecute any alcohol or drug abuse patient.[facility] HospitalIn the event this information is protected by the Federal Confidentiality of Alcohol and Drug Abuse Patient Records regulations: The Federal rules restrict any use of the information to criminally investigate or prosecute any alcohol or drug abuse patient.[facility] HospitalIn the event this information is protected by the Federal Confidentiality of Alcohol and Drug Abuse Patient Records regulations: The Federal rules restrict any use of the information to criminally investigate or prosecute any alcohol or drug abuse patient.[facility] HospitalIn the event this information is protected by the Federal Confidentiality of Alcohol and Drug Abuse Patient Records regulations: The Federal rules restrict any use of the information to criminally investigate or prosecute any alcohol or drug abuse patient.[facility] HospitalIn the event this information is protected by the Federal Confidentiality of Alcohol and Drug Abuse Patient Records regulations: The Federal rules restrict any use of the information to criminally investigate or prosecute any alcohol or drug abuse patient.[facility] Hospital[facility] the event this information is protected by the Federal Confidentiality of Alcohol and Drug Abuse Patient Records regulations: The Federal rules restrict any use of the information to criminally investigate or prosecute any alcohol or drug abuse patient.[facility] HospitalIn the event this information is protected by the Federal Confidentiality of Alcohol and Drug Abuse Patient Records regulations: The Federal rules restrict any use of the information to criminally investigate or prosecute any alcohol or drug abuse patient.[facility] HospitalIn the event this information is protected by the Federal Confidentiality of Alcohol and Drug Abuse Patient Records regulations: The Federal rules restrict any use of the information to criminally investigate or prosecute any alcohol or drug abuse patient.[facility] HospitalIn the event this information is protected by the Federal Confidentiality of Alcohol and Drug Abuse Patient Records regulations: The Federal rules restrict any use of the information to criminally investigate or prosecute any alcohol or drug abuse patient.[facility] HospitalIn the event this information is protected by the Federal Confidentiality of Alcohol and Drug Abuse Patient Records regulations: The Federal rules restrict any use of the information to criminally investigate or prosecute any alcohol or drug abuse patient.[facility] HospitalIn the event this information is protected by the Federal Confidentiality of Alcohol and Drug Abuse Patient Records regulations: The Federal rules restrict any use of the information to criminally investigate or prosecute any alcohol or drug abuse patient.[facility] HospitalIn the event this information is protected by the Federal Confidentiality of Alcohol and Drug Abuse Patient Records regulations: The Federal rules restrict any use of the information to criminally investigate or prosecute any alcohol or drug abuse patient.[facility] HospitalIn the event this information is protected by the Federal Confidentiality of Alcohol and Drug Abuse Patient Records regulations: The Federal rules restrict any use of the information to criminally investigate or prosecute any alcohol or drug abuse patient.[facility] HospitalIn the event this information is protected by the Federal Confidentiality of Alcohol and Drug Abuse Patient Records regulations: The Federal rules restrict any use of the information to criminally investigate or prosecute any alcohol or drug abuse patient.[facility] HospitalIn the event this information is protected by the Federal Confidentiality of Alcohol and Drug Abuse Patient Records regulations: The Federal rules restrict any use of the information to criminally investigate or prosecute any alcohol or drug abuse patient.[facility] HospitalIn the event this information is protected by the Federal Confidentiality of Alcohol and Drug Abuse Patient Records regulations: The Federal rules restrict any use of the information to criminally investigate or prosecute any alcohol or drug abuse patient.[facility] HospitalIn the event this information is protected by the Federal Confidentiality of Alcohol and Drug Abuse Patient Records regulations: The Federal rules restrict any use of the information to criminally investigate or prosecute any alcohol or drug abuse patient.[facility] HospitalIn the event this information is protected by the Federal Confidentiality of Alcohol and Drug Abuse Patient Records regulations: The Federal rules restrict any use of the information to criminally investigate or prosecute any alcohol or drug abuse patient.[facility] HospitalIn the event this information is protected by the Federal Confidentiality of Alcohol and Drug Abuse Patient Records regulations: The Federal rules restrict any use of the information to criminally investigate or prosecute any alcohol or drug abuse patient.[facility] HospitalIn the event this information is protected by the Federal Confidentiality of Alcohol and Drug Abuse Patient Records regulations: The Federal rules restrict any use of the information to criminally investigate or prosecute any alcohol or drug abuse patient.[facility] HospitalIn the event this information is protected by the Federal Confidentiality of Alcohol and Drug Abuse Patient Records regulations: The Federal rules restrict any use of the information to criminally investigate or prosecute any alcohol or drug abuse patient.[facility] HospitalIn the event this information is protected by the Federal Confidentiality of Alcohol and Drug Abuse Patient Records regulations: The Federal rules restrict any use of the information to criminally investigate or prosecute any alcohol or drug abuse patient.[facility] HospitalIn the event this information is protected by the Federal Confidentiality of Alcohol and Drug Abuse Patient Records regulations: The Federal rules restrict any use of the information to criminally investigate or prosecute any alcohol or drug abuse patient.[facility] HospitalIn the event this information is protected by the Federal Confidentiality of Alcohol and Drug Abuse Patient Records regulations: The Federal rules restrict any use of the information to criminally investigate or prosecute any alcohol or drug abuse patient.[facility] HospitalIn the event this information is protected by the Federal Confidentiality of Alcohol and Drug Abuse Patient Records regulations: The Federal rules restrict any use of the information to criminally investigate or prosecute any alcohol or drug abuse patient.[facility] HospitalIn the event this information is protected by the Federal Confidentiality of Alcohol and Drug Abuse Patient Records regulations: The Federal rules restrict any use of the information to criminally investigate or prosecute any alcohol or drug abuse patient.[facility] HospitalIn the event this information is protected by the Federal Confidentiality of Alcohol and Drug Abuse Patient Records regulations: The Federal rules restrict any use of the information to criminally investigate or prosecute any alcohol or drug abuse patient.[facility] HospitalIn the event this information is protected by the Federal Confidentiality of Alcohol and Drug Abuse Patient Records regulations: The Federal rules restrict any use of the information to criminally investigate or prosecute any alcohol or drug abuse patient.[facility] HospitalIn the event this information is protected by the Federal Confidentiality of Alcohol and Drug Abuse Patient Records regulations: The Federal rules restrict any use of the information to criminally investigate or prosecute any alcohol or drug abuse patient.[facility] HospitalIn the event this information is protected by the Federal Confidentiality of Alcohol and Drug Abuse Patient Records regulations: The Federal rules restrict any use of the information to criminally investigate or prosecute any alcohol or drug abuse patient.[facility] HospitalIn the event this information is protected by the Federal Confidentiality of Alcohol and Drug Abuse Patient Records regulations: The Federal rules restrict any use of the information to criminally investigate or prosecute any alcohol or drug abuse patient.[facility] HospitalIn the event this information is protected by the Federal Confidentiality of Alcohol and Drug Abuse Patient Records regulations: The Federal rules restrict any use of the information to criminally investigate or prosecute any alcohol or drug abuse patient.[facility] HospitalIn the event this information is protected by the Federal Confidentiality of Alcohol and Drug Abuse Patient Records regulations: The Federal rules restrict any use of the information to criminally investigate or prosecute any alcohol or drug abuse patient.[facility] HospitalIn the event this information is protected by the Federal Confidentiality of Alcohol and Drug Abuse Patient Records regulations: The Federal rules restrict any use of the information to criminally investigate or prosecute any alcohol or drug abuse patient.[facility] HospitalIn the event this information is protected by the Federal Confidentiality of Alcohol and Drug Abuse Patient Records regulations: The Federal rules restrict any use of the information to criminally investigate or prosecute any alcohol or drug abuse patient.[facility] HospitalIn the event this information is protected by the Federal Confidentiality of Alcohol and Drug Abuse Patient Records regulations: The Federal rules restrict any use of the information to criminally investigate or prosecute any alcohol or drug abuse patient.[facility] HospitalIn the event this information is protected by the Federal Confidentiality of Alcohol and Drug Abuse Patient Records regulations: The Federal rules restrict any use of the information to criminally investigate or prosecute any alcohol or drug abuse patient.[facility] HospitalIn the event this information is protected by the Federal Confidentiality of Alcohol and Drug Abuse Patient Records regulations: The Federal rules restrict any use of the information to criminally investigate or prosecute any alcohol or drug abuse patient.[facility] HospitalIn the event this information is protected by the Federal Confidentiality of Alcohol and Drug Abuse Patient Records regulations: The Federal rules restrict any use of the information to criminally investigate or prosecute any alcohol or drug abuse patient.[facility] HospitalIn the event this information is protected by the Federal Confidentiality of Alcohol and Drug Abuse Patient Records regulations: The Federal rules restrict any use of the information to criminally investigate or prosecute any alcohol or drug abuse patient.[facility] HospitalIn the event this information is protected by the Federal Confidentiality of Alcohol and Drug Abuse Patient Records regulations: The Federal rules restrict any use of the information to criminally investigate or prosecute any alcohol or drug abuse patient.[facility] HospitalIn the event this information is protected by the Federal Confidentiality of Alcohol and Drug Abuse Patient Records regulations: The Federal rules restrict any use of the information to criminally investigate or prosecute any alcohol or drug abuse patient.[facility] HospitalIn the event this information is protected by the Federal Confidentiality of Alcohol and Drug Abuse Patient Records regulations: The Federal rules restrict any use of the information to criminally investigate or prosecute any alcohol or drug abuse patient.[facility] HospitalIn the event this information is protected by the Federal Confidentiality of Alcohol and Drug Abuse Patient Records regulations: The Federal rules restrict any use of the information to criminally investigate or prosecute any alcohol or drug abuse patient.[facility] HospitalIn the event this information is protected by the Federal Confidentiality of Alcohol and Drug Abuse Patient Records regulations: The Federal rules restrict any use of the information to criminally investigate or prosecute any alcohol or drug abuse patient.[facility] HospitalIn the event this information is protected by the Federal Confidentiality of Alcohol and Drug Abuse Patient Records regulations: The Federal rules restrict any use of the information to criminally investigate or prosecute any alcohol or drug abuse patient.[facility] HospitalIn the event this information is protected by the Federal Confidentiality of Alcohol and Drug Abuse Patient Records regulations: The Federal rules restrict any use of the information to criminally investigate or prosecute any alcohol or drug abuse patient.[facility] HospitalIn the event this information is protected by the Federal Confidentiality of Alcohol and Drug Abuse Patient Records regulations: The Federal rules restrict any use of the information to criminally investigate or prosecute any alcohol or drug abuse patient.[facility] HospitalIn the event this information is protected by the Federal Confidentiality of Alcohol and Drug Abuse Patient Records regulations: The Federal rules restrict any use of the information to criminally investigate or prosecute any alcohol or drug abuse patient.[facility] HospitalIn the event this information is protected by the Federal Confidentiality of Alcohol and Drug Abuse Patient Records regulations: The Federal rules restrict any use of the information to criminally investigate or prosecute any alcohol or drug abuse patient.[facility] HospitalIn the event this information is protected by the Federal Confidentiality of Alcohol and Drug Abuse Patient Records regulations: The Federal rules restrict any use of the information to criminally investigate or prosecute any alcohol or drug abuse patient.[facility] HospitalIn the event this information is protected by the Federal Confidentiality of Alcohol and Drug Abuse Patient Records regulations: The Federal rules restrict any use of the information to criminally investigate or prosecute any alcohol or drug abuse patient.[facility] HospitalIn the event this information is protected by the Federal Confidentiality of Alcohol and Drug Abuse Patient Records regulations: The Federal rules restrict any use of the information to criminally investigate or prosecute any alcohol or drug abuse patient.[facility] HospitalIn the event this information is protected by the Federal Confidentiality of Alcohol and Drug Abuse Patient Records regulations: The Federal rules restrict any use of the information to criminally investigate or prosecute any alcohol or drug abuse patient.[facility] HospitalIn the event this information is protected by the Federal Confidentiality of Alcohol and Drug Abuse Patient Records regulations: The Federal rules restrict any use of the information to criminally investigate or prosecute any alcohol or drug abuse patient.[facility] HospitalIn the event this information is protected by the Federal Confidentiality of Alcohol and Drug Abuse Patient Records regulations: The Federal rules restrict any use of the information to criminally investigate or prosecute any alcohol or drug abuse patient.[facility] HospitalIn the event this information is protected by the Federal Confidentiality of Alcohol and Drug Abuse Patient Records regulations: The Federal rules restrict any use of the information to criminally investigate or prosecute any alcohol or drug abuse patient.[facility] HospitalIn the event this information is protected by the Federal Confidentiality of Alcohol and Drug Abuse Patient Records regulations: The Federal rules restrict any use of the information to criminally investigate or prosecute any alcohol or drug abuse patient.[facility] HospitalIn the event this information is protected by the Federal Confidentiality of Alcohol and Drug Abuse Patient Records regulations: The Federal rules restrict any use of the information to criminally investigate or prosecute any alcohol or drug abuse patient.[facility] HospitalIn the event this information is protected by the Federal Confidentiality of Alcohol and Drug Abuse Patient Records regulations: The Federal rules restrict any use of the information to criminally investigate or prosecute any alcohol or drug abuse patient.[facility] HospitalIn the event this information is protected by the Federal Confidentiality of Alcohol and Drug Abuse Patient Records regulations: The Federal rules restrict any use of the information to criminally investigate or prosecute any alcohol or drug abuse patient.[facility] HospitalIn the event this information is protected by the Federal Confidentiality of Alcohol and Drug Abuse Patient Records regulations: The Federal rules restrict any use of the information to criminally investigate or prosecute any alcohol or drug abuse patient.[facility] HospitalIn the event this information is protected by the Federal Confidentiality of Alcohol and Drug Abuse Patient Records regulations: The Federal rules restrict any use of the information to criminally investigate or prosecute any alcohol or drug abuse patient.[facility] HospitalIn the event this information is protected by the Federal Confidentiality of Alcohol and Drug Abuse Patient Records regulations: The Federal rules restrict any use of the information to criminally investigate or prosecute any alcohol or drug abuse patient.[facility] HospitalIn the event this information is protected by the Federal Confidentiality of Alcohol and Drug Abuse Patient Records regulations: The Federal rules restrict any use of the information to criminally investigate or prosecute any alcohol or drug abuse patient.[facility] HospitalIn the event this information is protected by the Federal Confidentiality of Alcohol and Drug Abuse Patient Records regulations: The Federal rules restrict any use of the information to criminally investigate or prosecute any alcohol or drug abuse patient.[facility] HospitalIn the event this information is protected by the Federal Confidentiality of Alcohol and Drug Abuse Patient Records regulations: The Federal rules restrict any use of the information to criminally investigate or prosecute any alcohol or drug abuse patient.[facility] HospitalIn the event this information is protected by the Federal Confidentiality of Alcohol and Drug Abuse Patient Records regulations: The Federal rules restrict any use of the information to criminally investigate or prosecute any alcohol or drug abuse patient.[facility] HospitalIn the event this information is protected by the Federal Confidentiality of Alcohol and Drug Abuse Patient Records regulations: The Federal rules restrict any use of the information to criminally investigate or prosecute any alcohol or drug abuse patient.[facility] HospitalIn the event this information is protected by the Federal Confidentiality of Alcohol and Drug Abuse Patient Records regulations: The Federal rules restrict any use of the information to criminally investigate or prosecute any alcohol or drug abuse patient.[facility] HospitalIn the event this information is protected by the Federal Confidentiality of Alcohol and Drug Abuse Patient Records regulations: The Federal rules restrict any use of the information to criminally investigate or prosecute any alcohol or drug abuse patient.[facility] HospitalIn the event this information is protected by the Federal Confidentiality of Alcohol and Drug Abuse Patient Records regulations: The Federal rules restrict any use of the information to criminally investigate or prosecute any alcohol or drug abuse patient.[facility] HospitalIn the event this information is protected by the Federal Confidentiality of Alcohol and Drug Abuse Patient Records regulations: The Federal rules restrict any use of the information to criminally investigate or prosecute any alcohol or drug abuse patient.[facility] HospitalIn the event this information is protected by the Federal Confidentiality of Alcohol and Drug Abuse Patient Records regulations: The Federal rules restrict any use of the information to criminally investigate or prosecute any alcohol or drug abuse patient.[facility] HospitalIn the event this information is protected by the Federal Confidentiality of Alcohol and Drug Abuse Patient Records regulations: The Federal rules restrict any use of the information to criminally investigate or prosecute any alcohol or drug abuse patient.[facility] HospitalIn the event this information is protected by the Federal Confidentiality of Alcohol and Drug Abuse Patient Records regulations: The Federal rules restrict any use of the information to criminally investigate or prosecute any alcohol or drug abuse patient.[facility] HospitalIn the event this information is protected by the Federal Confidentiality of Alcohol and Drug Abuse Patient Records regulations: The Federal rules restrict any use of the information to criminally investigate or prosecute any alcohol or drug abuse patient.[facility] HospitalIn the event this information is protected by the Federal Confidentiality of Alcohol and Drug Abuse Patient Records regulations: The Federal rules restrict any use of the information to criminally investigate or prosecute any alcohol or drug abuse patient.[facility] HospitalIn the event this information is protected by the Federal Confidentiality of Alcohol and Drug Abuse Patient Records regulations: The Federal rules restrict any use of the information to criminally investigate or prosecute any alcohol or drug abuse patient.[facility] HospitalIn the event this information is protected by the Federal Confidentiality of Alcohol and Drug Abuse Patient Records regulations: The Federal rules restrict any use of the information to criminally investigate or prosecute any alcohol or drug abuse patient.[facility] HospitalIn the event this information is protected by the Federal Confidentiality of Alcohol and Drug Abuse Patient Records regulations: The Federal rules restrict any use of the information to criminally investigate or prosecute any alcohol or drug abuse patient.[facility] HospitalIn the event this information is protected by the Federal Confidentiality of Alcohol and Drug Abuse Patient Records regulations: The Federal rules restrict any use of the information to criminally investigate or prosecute any alcohol or drug abuse patient.[facility] HospitalIn the event this information is protected by the Federal Confidentiality of Alcohol and Drug Abuse Patient Records regulations: The Federal rules restrict any use of the information to criminally investigate or prosecute any alcohol or drug abuse patient.[facility] HospitalIn the event this information is protected by the Federal Confidentiality of Alcohol and Drug Abuse Patient Records regulations: The Federal rules restrict any use of the information to criminally investigate or prosecute any alcohol or drug abuse patient.[facility] HospitalIn the event this information is protected by the Federal Confidentiality of Alcohol and Drug Abuse Patient Records regulations: The Federal rules restrict any use of the information to criminally investigate or prosecute any alcohol or drug abuse patient.[facility] HospitalIn the event this information is protected by the Federal Confidentiality of Alcohol and Drug Abuse Patient Records regulations: The Federal rules restrict any use of the information to criminally investigate or prosecute any alcohol or drug abuse patient.[facility] Reason for Visit (unrecogniz ed section and content) Reason Comments Follow Up Specialty Diagnoses / Procedures Referred By Contac t Referred To Contact [facility] Diagnoses Chronic diastolic (congestive) heart failure (HCC) Procedures ECHO ECHO TTHRC R-T 2D W/WOM-MODE COMPL SPEC&[place] [address] [place], [place] [id number] Phone: tel: fax: [facility] [address] [address] Referral ID Status Reason Start Date Expiration Date V isits Requested Visits Authorized [id number] Closed Auto-Generate d Referral 09/13/2024 09/13/2025 1 1 Reason Comments Physical Therapy Specialty Diagnoses / Procedures Referred By Contac t Referred To Contact [facility] Diagnoses Chronic thoracic back pain, unspecified back pain laterality 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 Procedures CONSULT TO PHYSICAL THERAPY PHYSICAL THERAPY EVALUATION HIGH COMPLEX 45 MINS Migel Garcia PA-C [address] [place] [address] [facility] [address] [address] Referral ID Status Reason Start Date Expiration Date Visits Requested Visits Authorized [id number] Authorized PCP Requested Referral Auto-Generate d Referral 3 08/05/2024 99 99 Reason Comments Occupational Therapy Specialty Diagnoses / Procedures Referred By Contac t Referred To Contact [facility] Diagnoses Primary osteoarthritis of first carpometacarpal joint of left hand Procedures CONSULT TO LEARNING ADMINISTRATOR OCCUPATIONAL THERAPY EVAL HIGH COMPLEX 60 MINS Joni Lew PA-C [address] [place] [address] [facility] [address] [address] Referral ID Status Reason Start Date Expiration Date Visits Requested Visits Authorized [id number] Authorized PCP Requested Referral Auto-Generate d Referral 12/09/2021 12/09/2022 99 99 Reason Onset Date Comments Occupational Therapy No Show 01/27/2022 No show Reason Comments OT Progress Note Reason Comments Results Reason Comments Follow Up Reason Comments New Patient Anemia Specialty Diagnoses / Procedures Referred By Contac t Referred To Contact Hematology Diagnoses Anemia, unspecified type Procedures CONSULT TO HEMATOLOGY OFFICE/OUTPATIENT [facility] 60-74 MINUTES Susannah Clemente MD [address] [place] [address] Referral ID Status Reason Start Date Expiration Date V isits Requested Visits Authorized [id number] Closed PCP Requested Referral 02/19/2022 05/20/2022 1 1 Reason Comments Hair Loss Reason Comments Consult Specialty Diagnoses / Procedures Referred By Contac t Referred To Contact Cardiology Diagnoses 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 disease, or chronic kidney disease (HCC) Procedures CONSULT TO CARDIOLOGY OFFICE/OUTPATIENT [facility] 60-74 MINUTES Susannah Clemente MD [address] [place] [address] Referral ID Status Reason Start Date Expiration Date V isits Requested Visits Authorized [id number] Closed PCP Requested Referral 04/14/2022 04/14/2023 1 1 Reason Comments Follow Up Reason Onset Date Comments Refill Request 08/06/2022 Reason Comments Lab Orders Public Health Informatician - Other Reason Comments Established Patient Reason [...] CONSULT TO PHYSICAL THERAPY PHYSICAL THERAPY EVALUATION [facility] 45 MINS Susannah Clemente MD [address] [place] [address] [facility] [place] [address] [place] [address] Referral ID Status Reason Start Date Expiration Date Visits Requested Visits Authorized [id number] Authorized PCP Requested Referral Auto-Generate d Referral 03/08/2023 03/07/2024 99 99 Reason Comments Back Pain (Upper Back) Reason Comments Medicare Wellness Exam Reason Comments New Patient Low Back Pain Specialty Diagnoses / Procedures Referred By Contac t Referred To Contact Spine [place] Diagnoses Medicare annual wellness visit, subsequent Thoracogenic scoliosis, unspecified spinal region Chronic thoracic back pain, unspecified back pain laterality Procedures CONSULT TO [facility] OFFICE/OUTPATIENT NEW [facility] 60-74 MINUTES Susannah Clemente MD [address] [place] [address] Referral ID Status Reason Start Date Expiration Date V isits Requested Visits Authorized [id number] Closed PCP Requested Referral 07/05/2023 07/04/2024 1 1 Specialty Diagnoses / Procedures Referred By Contac t Referred To Contact Diagnoses Medicare annual wellness visit, subsequent Decreased hearing of both ears Procedures HEARING TEST/AUDIOGRAM COMPRE AUDIOMETRY THRESHOLD EVAL SP RECOGNIJ Susannah Clemente MD [address] [place] [address] [facility] [address] [place] [address] Referral ID Status Reason Start Date Expiration Date V isits Requested Visits Authorized [id number] Closed Auto-Generate d Referral 07/05/2023 10/03/2023 1 1 Reason Comments Refill Request Reason Comments Radiology US Specialty Diagnoses / Procedures Referred By Contac t Referred To Contact US IMAGING Diagnoses Epigastric abdominal tenderness without rebound tenderness Procedures US ABD RIGHT UPPER QUADRANT US ABDOMINAL REAL TIME W/IMAGE LIMITED Susannah Clemente MD [address] [place] [address] Us Imaging [id number] Referral ID Status Reason Start Date Expiration Date V isits Requested Visits Authorized [id number] Closed Auto-Generate d Referral 03/23/2023 04/21/2024 1 1 Reason Comments Radiology NM Specialty Diagnoses / Procedures Referred By Contac t Referred To Contact [facility] Diagnoses Medicare annual wellness visit, subsequent Epigastric pain Procedures NM HEPATOBILIARY W EF AND/OR RX HEPATOBIL SYST IMAG INC GB W/PHARMA INTERVENJ Susannah Clemente MD [address] [place] [address] Molecular [facility] [address] [place] [address] Referral ID Status Reason Start Date Expiration Date V isits Requested Visits Authorized [id number] Closed Auto-Generate d Referral 07/05/2023 08/03/2024 1 1 Specialty Diagnoses / Procedures Referred By Contac t Referred To Contact US IMAGING Diagnoses Urinary retention Procedures US PELVIS BLADDER US PELVIC NONOBSTETRIC IMAGE DCMTN LIMITED/F/U Susannah Clemente MD [address] [place] [address] [place] [address] Referral ID Status Reason Start Date Expiration Date V isits Requested Visits Authorized [id number] Closed Auto-Generate d Referral 10/01/2022 10/31/2023 1 [...] Mammogram Specialty Diagnoses / Procedures Referred By Contac t Referred To Contact BR IMAGING Diagnoses Encounter for screening mammogram for breast cancer Procedures NICOLE SCREENING W MICHELLE SCREENING DIGITAL BREAST TOMOSYNTHESIS BI SCREENING MAMMOGRAPHY BI 2-VIEW BREAST INC Alicia Ochoa, MAJOR ASSEMBLY LINEMAN.POWER SYSTEM ENGINEER [address] [place] [address] [facility] [address] [place] [address] Referral ID Status Reason Start Date Expiration Date V isits Requested Visits Authorized [id number] Closed Auto-Generate d Referral 12/31/2023 01/29/2025 1 1 Reason Comments Patient Question Nothing was availabl e for medicare wellness until February, AVS said to see in 4 months, offered patient to schedule with Ruby, she did not want to, wanted to know if scheduling her for February was okay with you? She asked me to send this to you. Referral ID Status Reason Start Date Expiration Date V isits Requested Visits Authorized [id number] Closed Auto-Generate d Referral 01/05/2023 02/04/2024 1 1 Reason Comments Breathing Problem Reason Comments urgency with urination X urgency and pre ssure x 2 days Specialty Diagnoses / Procedures Referred By Tanya t Referred To Contact BR IMAGING Diagnoses Encounter for screening mammogram for malignant neoplasm of breast Procedures NICOLE SCREENING W MICHELLE SCREENING BREAST DGTL MICHELLE UNI/BILAT ADD ON SCREENING MAMMOGRAPHY BI 2-VIEW BREAST INC Ai Brar PA-C [address] [place] [address] Br Imaging [address] [place] [address] Referral ID Status Reason Start Date Expiration Date V isits Requested Visits Authorized [id number] Closed Auto-Generate d Referral 07/08/2021 08/07/2022 1 [...] Comments Nm Pet Request Reason Comments Forms [facility] Care Teams (unrecognized sec tion and content) Team Status: Active Member Role Status Dates Dr. Susannah Clemente MD Primary Care Provider Active Team Status: Active Member Role Status Dates Dr. Susannah Clemente MD Primary Care Provider Active Start: April 09, 2025 Serge Mcmullen MD Emergency Provider Active Star t: April 09, 2025 Dr. Migel Godoy DO Admit Provider Active Start: April 09, 2025 Dr. Migel Godoy DO Attending Provider Active Start: April 09, 2025 Engraver Signature Relationship Specialty Start Date End Date Susannah lCemente MD [address] [place], [place] [id number] PCP - General Internal Medicine 11/10/16 Erwin Alfred MD [address] [place], [place] [id number] Primary Staff Physician Cardiology 11/07/21 Engraver Signature Relationship Specialty Start Date End Date Susannah Clemente MD [address] [place], [place] [id number] PCP - General Internal Medicine 11/10/16 Erwin Alfred MD [address] [place] [address] Primary Staff Physician Cardiology 11/07/21 Engraver Signature Relationship Specialty Start Date End Date Susannah Clemente MD [address] [place], [place] [address]69[address] PCP - General Internal Medicine 11/10/16 Erwin Alfred MD [address] [place] [address] Primary Staff Physician Cardiology 11/07/21 Engraver Signature Relationship Specialty Start Date End Date Susannah Clemente MD [address] [place], [place] 1234[address] PCP - General Internal Medicine 11/10/16 Erwin Alfred MD [address] [place] [address] Primary Staff Physician Cardiology 11/07/21 Engraver Signature Relationship Specialty Start Date End Date Susannah Clemente MD [address] [place], [place] [id number] PCP - General Internal Medicine 11/10/16 Erwin Alfred MD [address] [place] [address] Primary Staff Physician Cardiology 11/07/21 Engraver Signature Relationship Specialty Start Date End Date Susannah Clemente MD [address] [place], [place] [id number] PCP - General Internal Medicine 11/10/16 Erwin Alfred MD [address] [place] [address] Primary Staff Physician Cardiology 11/07/21 Engraver Signature Relationship Specialty Start Date End Date Susannah Clemente MD [address] [place], [place] [id number] PCP - General Internal Medicine 11/10/16 Erwin Alfred MD [address] [place] [address] Primary Staff Physician Cardiology 11/07/21 Engraver Signature Relationship Specialty Start Date End Date Susannah Clemente MD [address] [place], [place] [id number] PCP - General Internal Medicine 11/10/16 Erwin Alfred MD [address] [place] [address] Primary Staff Physician Cardiology 11/07/21 Engraver Signature Relationship Specialty Start Date End Date Susannah Clemente MD [address] [place], [place] [id number] PCP - General Internal Medicine 11/10/16 Erwin Alfred MD [address] [place] [address] Primary Staff Physician Cardiology 11/07/21 Engraver Signature Relationship Specialty Start Date End Date Susannah Clemente MD [address] [place], [place] [id number] PCP - General Internal Medicine 11/10/16 Erwin Alfred MD [address] [place] [address] Primary Staff Physician Cardiology 11/07/21 Engraver Signature Relationship Specialty Start Date End Date Susannah Clemente MD [address] [place], [place] [address]202 PCP - General Internal Medicine 11/10/16 Erwin Alfred MD [address] [place] [address] Primary Staff Physician Cardiology 11/07/21 Engraver Signature Relationship Specialty Start Date End Date Susannah Clemente MD [address] [place] [address] PCP - General Internal Medicine 11/10/16 Erwin Alfred MD [address] [place] [address] Primary Staff Physician Cardiology 11/07/21 Engraver Signature Relationship Specialty Start Date End Date Susannah Clemente MD [address] [place], [place] [address]692 PCP - General Internal Medicine 11/10/16 Erwin Alfred MD [address] [place] [address] Primary Staff Physician Cardiology 11/07/21 Engraver Signature Relationship Specialty Start Date End Date Susannah Clemente MD [address] [place], [place] [id number] PCP - General Internal Medicine 11/10/16 Erwin Alfred MD [address] [place] [address] Primary Staff Physician Cardiology 11/07/21 Engraver Signature Relationship Specialty Start Date End Date Susannah Clemente MD [address] [place], [place] [address] PCP - General Internal Medicine 11/10/16 Erwin Alfred MD [address] [place] [address] Primary Staff Physician Cardiology 11/07/21 Engraver Signature Relationship Specialty Start Date End Date Susannah Clemente MD [address] [place], [place] [id number] PCP - General Internal Medicine 11/10/16 Erwin Alfred MD [address] [place] [address] Primary Staff Physician Cardiology 11/07/21 Engraver Signature Relationship Specialty Start Date End Date Susannah Clemente MD [address] [place], [place] 634482 PCP - General Internal Medicine 11/10/16 Erwin Alfred MD [address] [place] [address] Primary Staff Physician Cardiology 11/07/21 Engraver Signature Relationship Specialty Start Date End Date Susannah Clemente MD [address] [place], [place] [id number] PCP - General Internal Medicine 11/10/16 Erwin Alfred MD [address] [place] [address] Primary Staff Physician Cardiology 11/07/21 Engraver Signature Relationship Specialty Start Date End Date Susannah Clemente MD [address] [place] [address] PCP - General Internal Medicine 11/10/16 Erwin Alfred MD [address] [place] [address] Primary Staff Physician Cardiology 11/07/21 Engraver Signature Relationship Specialty Start Date End Date Susannah Clemente MD [address] [place] [address] PCP - General Internal Medicine 11/10/16 Erwin Alfred MD [address] [place] [address] Primary Staff Physician Cardiology 11/07/21 Engraver Signature Relationship Specialty Start Date End Date Susannah Clemente MD [address] [place] [address] PCP - General Internal Medicine 11/10/16 Erwin Alfred MD [address] [place] [address] Primary Staff Physician Cardiology 11/07/21 Engraver Signature Relationship Specialty Start Date End Date Susannah Clemente MD PCP - General Internal Medicine 11/10/16 Erwin Alfred MD [address] [place] [address] Primary Staff Physician Cardiology 11/07/21 Engraver Signature Relationship Specialty Start Date End Date Susannah Clemente MD PCP - General Internal Medicine 11/10/16 Erwin Alfred MD [address] [place] [address] Primary Staff Physician Cardiology 11/07/21 Engraver Signature Relationship Specialty Start Date End Date Susannah Clemente MD PCP - General Internal Medicine 11/10/16 Erwin Alfred MD [address] [place] [address] Primary Staff Physician Cardiology 11/07/21 Engraver Signature Relationship Specialty Start Date End Date Susannah Clemente MD PCP - General Internal Medicine 11/10/16 Erwin Alfred MD [address] [place] [id number] Primary Staff Physician Cardiology 11/07/21 Engraver Signature Relationship Specialty Start Date End Date Susannah Clemente MD PCP - General Internal Medicine 11/10/16 Erwin Alfred MD [address] [place] [address] Primary Staff Physician Cardiology 11/07/21 Engraver Signature Relationship Specialty Start Date End Date Susannah Clemente MD PCP - General Internal Medicine 11/10/16 Erwin Alfred MD [address] [place] [address] Primary Staff Physician Cardiology 11/07/21 Engraver Signature Relationship Specialty Start Date End Date Susannah Clemente MD PCP - General Internal Medicine 11/10/16 Erwin Alfred MD [address] [place] [address] Primary Staff Physician Cardiology 11/07/21 Engraver Signature Relationship Specialty Start Date End Date Susannah Clemente MD PCP - General Internal Medicine 11/10/16 Erwin Alfred MD [address] [place] [address] Primary Staff Physician Cardiology 11/07/21 Engraver Signature Relationship Specialty Start Date End Date Susannah Clemente MD PCP - General Internal Medicine 11/10/16 rEwin Alfred MD [address] [place] [address] Primary Staff Physician Cardiology 11/07/21 Engraver Signature Relationship Specialty Start Date End Date Susannah Clemente MD PCP - General Internal Medicine 11/10/16 Erwin Alfred MD [address] [place] [address] Primary Staff Physician Cardiology 11/07/21 Engraver Signature Relationship Specialty Start Date End Date Susannah Clemente MD PCP - General Internal Medicine 11/10/16 Erwin Alfred MD [address] [place], [place] [address] Primary Staff Physician Cardiology 11/07/21 Engraver Signature Relationship Specialty Start Date End Date Susannah Clemente MD PCP - General Internal Medicine 11/10/16 Erwin Alfred MD [address] [place] [id number] Primary Staff Physician Cardiology 11/07/21 Engraver Signature Relationship Specialty Start Date End Date Susannah Clemente MD PCP - General Internal Medicine 11/10/16 Erwin Alfred MD [address] [place] [address] Primary Staff Physician Cardiology 11/07/21 Engraver Signature Relationship Specialty Start Date End Date Susannah Clemente MD PCP - General Internal Medicine 11/10/16 Erwin Alfred MD [address] [place] [id number] Primary Staff Physician Cardiology 11/07/21 Engraver Signature Relationship Specialty Start Date End Date Susannah Clemente MD PCP - General Internal Medicine 11/10/16 Erwin Alfred MD [address] [place], [place] [address] Primary Staff Physician Cardiology 11/07/21 Engraver Signature Relationship Specialty Start Date End Date Susannah Clemente MD PCP - General Internal Medicine 11/10/16 Erwin Alfred MD [address] [place] [address] Primary Staff Physician Cardiology 11/07/21 Engraver Signature Relationship Specialty Start Date End Date Susannah Clemente MD PCP - General Internal Medicine 11/10/16 Erwin Alfred MD [address] [place], [place] [address] Primary Staff Physician Cardiology 11/07/21 Team Status: Active Member Role Status Dates Dr. Susannah Clemente MD Primary Care Provider Active Team Status: Inactive Member Role Status Dates Dr. Susannah Clemente MD Primary Care Provider Active Dr. Alberto Bernal MD Emergency Provider Active Engraver Signature Relationship Specialty Start Date End Date Susannah Clemente MD PCP - General Internal Medicine 11/10/16 Erwin Alfred MD [address] [place] [address] Primary Staff Physician Cardiology 11/07/21 Engraver Signature Relationship Specialty Start Date End Date Susannah Clemente MD PCP - General Internal Medicine 11/10/16 Erwin Alfred MD [address] [place], [place] [address] Primary Staff Physician Cardiology 11/07/21 Engraver Signature Relationship Specialty Start Date End Date Susannah Clemente MD PCP - General Internal Medicine 11/10/16 Erwin Alfred MD [address] [place], [place] [address] Primary Staff Physician Cardiology 11/07/21 Engraver Signature Relationship Specialty Start Date End Date Susannah Clemente MD PCP - General Internal Medicine 11/10/16 Erwin Alfred MD [address] [place], [place] [address]389[address] Primary Staff Physician Cardiology 11/07/21 Engraver Signature Relationship Specialty Start Date End Date Susannah Clemente MD PCP - General Internal Medicine 11/10/16 Erwin Alfred MD [address] [place], [place] [address] Primary Staff Physician Cardiology 11/07/21 Engraver Signature Relationship Specialty Start Date End Date Susannah Clemente MD PCP - General Internal Medicine 11/10/16 Erwin Alfred MD [address] [place], [place] 24024[address] Primary Staff Physician Cardiology 11/07/21 Engraver Signature Relationship Specialty Start Date End Date Susannah Clemente MD PCP - General Internal Medicine 11/10/16 Erwin Alfred MD [address] [place] [address] Primary Staff Physician Cardiology 11/07/21 Engraver Signature Relationship Specialty Start Date End Date Susannah Clemente MD PCP - General Internal Medicine 11/10/16 Erwin Alfred MD [address] [place] [address] Primary Staff Physician Cardiology 11/07/21 Engraver Signature Relationship Specialty Start Date End Date Susannah Clemente MD PCP - General Internal Medicine 11/10/16 Erwin Alfred MD [address] [place] [address] Primary Staff Physician Cardiology 11/07/21 Engraver Signature Relationship Specialty Start Date End Date Susannah Clemente MD PCP - General Internal Medicine 11/10/16 Erwin Alfred MD [address] [place] [address] Primary Staff Physician Cardiology 11/07/21 Engraver Signature Relationship Specialty Start Date End Date Susannah Clemente MD PCP - General Internal Medicine 11/10/16 Erwin Alfred MD [address] [place] [address] Primary Staff Physician Cardiology 11/07/21 Engraver Signature Relationship Specialty Start Date End Date Susannah Clemente MD PCP - General Internal Medicine 11/10/16 Erwin Alfred MD [address] [place] [address] Primary Staff Physician Cardiology 11/07/21 Engraver Signature Relationship Specialty Start Date End Date Susannah Clemente MD PCP - General Internal Medicine 11/10/16 Erwin Alfred MD [address] [place] [id number] Primary Staff Physician Cardiology 11/07/21 Engraver Signature Relationship Specialty Start Date End Date Susannah Clemente MD PCP - General Internal Medicine 11/10/16 Erwin Alfred MD [address] [place] [address] Primary Staff Physician Cardiology 11/07/21 Engraver Signature Relationship Specialty Start Date End Date Susannah Clemente MD PCP - General Internal Medicine 11/10/16 Erwin Alfred MD [address] [place], [place] [address] Primary Staff Physician Cardiology 11/07/21 Engraver Signature Relationship Specialty Start Date End Date Susannah Clemente MD PCP - General Internal Medicine 11/10/16 Erwin Alfred MD [address] [place], [place] [address] Primary Staff Physician Cardiology 11/07/21 Engraver Signature Relationship Specialty Start Date End Date Susannah Clemente MD PCP - General Internal Medicine 11/10/16 Erwin Alfred MD [address] [place] [address] Primary Staff Physician Cardiology 11/07/21 Engraver Signature Relationship Specialty Start Date End Date Susannah Clemente MD PCP - General Internal Medicine 11/10/16 Erwin Alfred MD [address] [place] [address] Primary Staff Physician Cardiology 11/07/21 Engraver Signature Relationship Specialty Start Date End Date Susannah Clemente MD PCP - General Internal Medicine 11/10/16 Engraver Signature Relationship Specialty Start Date End Date Susannah Clemente MD PCP - General Internal Medicine 11/10/16 Engraver Signature Relationship Specialty Start Date End Date Susannah Clemente MD PCP - General Internal Medicine 11/10/16 Engraver Signature Relationship Specialty Start Date End Date Susannah Clemente MD PCP - General Internal Medicine 11/10/16 Erwin Alfred MD [address] [place] [address] Primary Staff Physician Cardiology 11/07/21 Engraver Signature Relationship Specialty Start Date End Date Susannah Clemente MD PCP - General Internal Medicine 11/10/16 Erwin Alfred MD [address] [place] [address] Primary Staff Physician Cardiology 11/07/21 Engraver Signature Relationship Specialty Start Date End Date Susannah Clemente MD PCP - General Internal Medicine 11/10/16 Erwin Alfred MD [address] [place] [address] Primary Staff Physician Cardiology 11/07/21 Engraver Signature Relationship Specialty Start Date End Date Susannah Clemente MD PCP - General Internal Medicine 11/10/16 Erwin Alfred MD [address] [place] [address] Primary Staff Physician Cardiology 11/07/21 Engraver Signature Relationship Specialty Start Date End Date Susannah Clemente MD PCP - General Internal Medicine 11/10/16 Erwin Alfred MD [address] [place] [address] Primary Staff Physician Cardiology 11/07/21 Engraver Signature Relationship Specialty Start Date End Date Susannah Clemente MD PCP - General Internal Medicine 11/10/16 Erwin Alfred MD [address] [place] [address] Primary Staff Physician Cardiology 11/07/21 Ruby Hurst PA-C [address] [place] [address] Boiler Testing Technician Internal Medicine 09/25/24 Engraver Signature Relationship Specialty Start Date End Date Susannah Clemente MD PCP - General Internal Medicine 11/10/16 Erwin Alfred MD [address] [place] [address] Primary Staff Physician Cardiology 11/07/21 Ruby Hurst PA-C [address] [place] [address] Boiler Testing Technician Internal Medicine 09/25/24 Engraver Signature Relationship Specialty Start Date End Date Susannah Clemente MD PCP - General Internal Medicine 11/10/16 Erwin Alfred MD [address] [place] [address] Primary Staff Physician Cardiology 11/07/21 Ruby Hurst PA-C [address] [place] [address] Boiler Testing Technician Internal Medicine 09/25/24 Engraver Signature Relationship Specialty Start Date End Date Susannah Clemente MD PCP - General Internal Medicine 11/10/16 Erwin Alfred MD [address] [place] [address] Primary Staff Physician Cardiology 11/07/21 Ruby Hurst PA-C [address] [place] [address] Boiler Testing Technician Internal Medicine 09/25/24 Engraver Signature Relationship Specialty Start Date End Date Susannah Clemente MD PCP - General Internal Medicine 11/10/16 Erwin Alfred MD [address] [place] [address] Primary Staff Physician Cardiology 11/07/21 Ruby Hurst PA-C [address] [place] [address] Boiler Testing Technician Internal Medicine 09/25/24 Engraver Signature Relationship Specialty Start Date End Date Susannah Clemente MD PCP - General Internal Medicine 11/10/16 Erwin Alfred MD [address] [place] [address] Primary Staff Physician Cardiology 11/07/21 Ruby Hurst PA-C [address] [place] [address] Boiler Testing Technician Internal Medicine 09/25/24 Engraver Signature Relationship Specialty Start Date End Date Susannah Clemente MD PCP - General Internal Medicine 11/10/16 Erwin Alfred MD [address] [place] [address] Primary Staff Physician Cardiology 11/07/21 Ruby Hurst PA-C [address] [place] [address] Boiler Testing Technician Internal Medicine 09/25/24 Engraver Signature Relationship Specialty Start Date End Date Susannah Clemente MD PCP - General Internal Medicine 11/10/16 Erwin Alfred MD [address] [place] [address] Primary Staff Physician Cardiology 11/07/21 Ruby Hurst PA-C [address] [place] [address] Boiler Testing Technician Internal Medicine 09/25/24 Engraver Signature Relationship Specialty Start Date End Date Susannah Clemente MD PCP - General Internal Medicine 11/10/16 Erwin Alfred MD [address] [place] [id number] Primary Staff Physician Cardiology 11/07/21 Ruby Hurst PA-C [facility] [place] [address] Boiler Testing Technician Internal Medicine 09/25/24 Engraver Signature Relationship Specialty Start Date End Date Susannah Clemente MD PCP - General Internal Medicine 11/10/16 Erwin Alfred MD [address] [place] [id number] Primary Staff Physician Cardiology 11/07/21 Ruby Hurst PA-C [address] [place] [place] [address] Boiler Testing Technician Internal Medicine 09/25/24 Engraver Signature Relationship Specialty Start Date End Date Susannah Clemente MD PCP - General Internal Medicine 11/10/16 Erwin Alfred MD [address] [place] [address] Primary Staff Physician Cardiology 11/07/21 Ruby Hurst PA-C [facility] [place] [address] Boiler Testing Technician Internal Medicine 09/25/24 Engraver Signature Relationship Specialty Start Date End Date Susannah Clemente MD PCP - General Internal Medicine 11/10/16 Erwin Alfred MD [address] [place] [address] Primary Staff Physician Cardiology 11/07/21 Ruby Hurst PA-C [address] [place] [address] Boiler Testing Technician Internal Medicine 09/25/24 Team Status: Active Member Role Status Dates Dr. Susannah Clemente MD Primary Care Provider Active Start: April 09, 2025 Serge Mcmullen MD Emergency Provider Active Star t: April 09, 2025 Dr. Migel Godoy DO Admit Provider Active Start: April 09, 2025 Dr. Migel Godoy DO Attending Provider Active Start: April 09, 2025 Goals (unrecognized section and content) Goals may be documented in a n alternate sectionGoals may be documented in an alternate section FOR RECORDS PERTAINING TO PATIENTS [...] BE BASED ON THE PRIMARY CLINICAL RECORDS. Ad [facility]. provides no warranty or guarantee of the accuracy or completeness of information in this document.
[2025-04-10 04:37] LABS: Hematocrit 34.1 % (37-47); Hemoglobin 11.6 g/dL (12.0-15.0); Mean Corpuscular Hgb 31.2 pg (27.0-32.0); Mean Corpuscular Volume 91.7 fL (81-99); Mean Platelet Vol. 9.5 fl (6.2-12.0); Platelet Count 195 K/mm3 (150-450); RBC Distribution Width CV 12.6 % (11.6-14.6); RBC Distribution Width SD 42.3 fl (35.1-43.9); Red Blood Count 3.72 M/mm3 (4.2-5.4); White Blood Count 5.6 K/mm3 (4.4-11.0)
[2025-04-10] MEDS: Levothyroxine 88 MCG Tablet PO (04:58)
[2025-04-10] MEDS: Acetaminophen 325 MG Tablet 650 MG PO (04:58)
[2025-04-10 05:02] LABS: ALB/GLOB Ratio 1.6 RATIO (0.9-2.4); AST(SGOT) 19 U/L (<=31); Alanine Aminotransfer ALT/SGPT 22 U/L (<=34); Albumin, Serum 3.8 g/dL (3.4-4.8); Alkaline Phosphatase 69 U/L (35-104); Anion Gap 10 (5-15); BUN 27 mg/dL (4-19); BUN/Creat Ratio 20.9 RATIO (10-20); Calcium,Total 9.4 mg/dL (7.6-11.0); Carbon Dioxide 26.8 mmol/L (21.0-32.0); Chloride 103 mmol/L (98-108); Cholesterol 169 mg/dL (<=200); Creatinine, Serum 1.31 mg/dL (0.70-1.20); EST Glomerular Filtration Rate 39 (>60); Estimated Creatinine Clearance 26.99 ml/min (50-250); Globulin 2.5 g/dL (2.2-4.2); Glucose 106 mg/dL (70-99); High Density Lipoprotein 62 mg/dL; Low Density Lipoprotein Calc. 96 mg/dL; Potassium 4.2 mmol/L (3.3-5.1); Protein, Total 6.3 g/dL (5.9-8.4); Sodium Level 139 mmol/L (133-145); Total Bilirubin 0.54 mg/dL (0.00-1.30); Triglycerides 54 mg/dL; Very Low Density Lipoprotein 11 mg/dL (5-40); cholesterol:hdl ratio screen 2.74
--- NOTE | 2025-04-10 05:14 | VDLE_ITS ---
Reason For Study Reason For Study: Elevated D-Dimer RIGHT LEFT CFV is compressible, spontaneous, phasic, competent CFV is compressible, spontaneous, phasic, competent, and demonstrates normal augmentation. and demonstrates normal augmentation. FV is compressible, spontaneous, phasic, competent FV is compressible, spontaneous, phasic, competent and demonstrates normal augmentation. and demonstrates normal augmentation. POP V is compressible, spontaneous, phasic, competent POP V is compressible, spontaneous, phasic, competent and demonstrates normal augmentation. and demonstrates normal augmentation. T/P Trunk is compressible. T/P Trunk is compressible. PTV is compressible. Lt GastrocV and Lt PTV are DILATED and NON RT PerV is compressible. COMPRESSIBLE consistent with acute DVT, very short Hypoechoic, non vascular structure noted Rt Pop Fossa segments measuring 1.18cm x 2.28cm Lt GSV previous vein stripping. Rt GSV previous vein stripping. LT PerV is compressible. Procedure This is a venous duplex using B-mode, color flow and spectral Doppler. Exam performed portable in patient room. A preliminary report was called and/or faxed to Toyin GALLARDO. VL/Venous Duplex US - Alberto Extrem Interpretation Summary Acute deep vein thrombosis noted in the left gastrocnemius vein, posterior tibi al vein. Hypoechoic, non vascular structure noted right popliteal fossa measuring 1.18cm x 2.28cm Ordering Physician: Migel Godoy Referring Physician: Miguelina Capellan Performed By: Treva Singer, PALLAVICS, RVT
--- NOTE | 2025-04-10 07:28 | PCM.CONS.C ---
Assessment & Plan Assessment/Plan (1) NSTEMI (non-ST elevated myocardial infarction): PLAN: Patient presents with chest discomfort and a non-ST elevation myocardial infarction coupled with nausea. My recommendation at this time would be to consider a left heart catheterization. Risk benefits alternatives have and explained to her and she wants to talk to her assembler golf wood head in [place] before proceeding. In the meantime she will remain on the current medical therapy together with the heparin. (2) Chronic diastolic CHF (congestive heart failure): PLAN: She had a previous echocardiogram which demonstrated preserved left ventricular ejection fraction as per the notes. I am not sure when this was undertaken. Will repeat just to make sure there are no wall motion abnormalities and also to avoid doing an left ventriculogram because of her elevated creatinine. (3) HTN (hypertension): PLAN: She does have evidence of hypertension and the plan to be to continue her current medications with the labetalol as well as the clonidine. She is also on indapamide in the meantime this will be continued. 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 Ejection fraction was noted to be preserved on the echocardiogram. Based on the above findings I would recommend aggressive medical therapy. Patient can follow-up with her assembler golf wood head in [place]. HPI Consult Data Date of Consult: 04/10/25 HPI Narrative HPI Narrative: ZENAIDA WILKINSON, is a 89 F who presents to the emergency room with nausea and abdominal pain as well as chest discomfort. She had previously seen her assembler golf wood head in [place] about a week ago with similar findings and actually at that time had also complained of some chest discomfort. It appears from his notes that he had considered proceeding with a left heart catheterization or stress testing and they elected to perform the latter. However before she could be scheduled patient started having more symptoms with discomfort as noted above. The discomfort was worse with exertion and goes away with rest. In the emergency room she was evaluated by the EKG did not demonstrate any significant abnormalities but cardiac enzymes were abnormal and cardiology was called for further evaluation and management. She is currently pain-free. [facility] Medical History CHF (congestive heart failure) Home Medications ?Medication ?Instructions ?Recorded ?Last Taken ?Type aspirin 81 mg chewable tablet 81 mg PO DAILY@0800 heart 01/18/18 Unknown History levothyroxine 88 mcg tablet 88 mcg PO DAILY thyroid 01/18/18 04/09/25 History cholecalciferol (vitamin D3) 25 25 mcg PO DAILY Supplement 10/16/19 04/09/25 History mcg (1,000 unit) capsule labetalol 200 mg tablet 100 mg PO BID Blood pressure 10/16/19 04/09/25 History melatonin 5 mg capsule 5 mg PO QHS Sleep 10/16/19 04/09/25 History clonidine 0.1 mg/24 hr weekly 1 patch transdermal QWEEK 11/06/23 04/09/25 History transdermal patch Hypertension furosemide 20 mg tablet 20 mg PO .COMPLEX Diuretic 11/06/23 04/09/25 History ondansetron 4 mg disintegrating 4 mg PO Q8H PRN PRN Nausea #10 tabs 11/06/23 Unknown Rx tablet indapamide 1.25 mg tablet 1.25 mg PO DAILY Vlood pressure 04/09/25 04/09/25 History minoxidil 2.5 mg tablet 2.5 mg PO DAILY Hair 04/09/25 Unknown History nitroglycerin 0.4 mg sublingual 0.4 mg sublingual PRN Chest pain 04/09/25 Unknown History tablet Allergy/AdvReac Type Severity Reaction Status Date / Time iron Allergy Unknown Verified 04/09/25 18:49 pentazocine (From Talwin) Allergy Other Verified 04/09/25 18:49 scopolamine Allergy Other Verified 04/09/25 18:49 Family History no significant family his Social History Smoking Status: Former smoker ROS Constitutional Constitutional: Denies fever(s) or weight loss Eyes Eyes: Reports systems reviewed and no addt'l complaints, except as documented ENT HEENT: Reports systems reviewed and no addt'l complaints, except as documented Cardiovascular Cardiovascular: Reports chest pain with activity, dyspnea at rest and dyspnea on exertion; Denies chest pain at rest, edema, palpitations or paroxysmal nocturnal dyspnea Respiratory/Chest Respiratory/Chest: Denies dyspnea on exertion, productive cough, shortness of breath at rest or shortness of breath with exertion Gastrointestinal Gastrointestinal: Denies change in bowel habits, nausea, vomiting or weight changes Genitourinary Genitourinary: Denies difficulty urinating Musculoskeletal Musculoskeletal: Denies joint stiffness or muscle weakness Integumentary Integumentary: Denies lesions Neurologic Neurologic: Denies dizziness or syncope Psychiatric Psychiatric: Denies anxiety Endocrine Endocrinology: Denies excessive sweating or fatigue Hematologic/Lymphatic Hematologic/Lymphatic: Denies anemia Allergic/Immunologic Allergic/Immunologic: Denies seasonal rhinorrhea Physical Exam Const alert, oriented x3 and no apparent distress General Appearance: cooperative HEENT hearing grossly normal bilaterally Head and Scalp: atraumatic Eyes EOMs intact bilaterally Neck General: normal visual inspection Chest inspection of chest normal and palpation of chest normal Resp normal respiratory effort Auscultation: clear to auscultation bilaterally Cardio regular rate, regular rhythm, S1 normal heart sound and S2 normal heart sound Jugular Venous Distention: JVD GI normal to inspection, nondistended, normoactive bowel sounds Extremity normal capillary refill and no pedal edema Peripheral Pulses: Yes pulses 2+ throughout and femoral pulses present Skin no rashes or lesions noted Neuro oriented x3 and CN's II-XII intact bilaterally Psych Appearance: grossly normal and appropriate Risk Stratification Risk Stratification Applicable: Yes Age >/= 65: Yes >/= 3 CAD Risk Factors (HTN, HLD, DM, family hx of CAD, or current smoker): Yes Aspirin Use in the Past 7 Days: No Severe Angina (>/= episodes in 24 hours): No EKG ST Changes >/= 0.5mm: No Positive Cardiac Marker: Yes SARAN Risk Stratification Score: 3 SARAN % Risk: 13% Risk Objective Data Vital Signs: Vital Signs Temp Pulse Resp BP Pulse Ox O2 Del Method 97.7 F L 72 17 133/72 H 93 Room Air 04/10/25 05:00 04/10/25 05:00 04/10/25 05:00 04/10/25 05:00 04/10/25 05:00 04/10/25 05:00 Oxygen Delivery Method Room Air Weight: 126 lb 15.78 oz Body Mass Index (BMI) 20.5 Intake & Output: Intake and Output for Last 24 Hours 04/08/25 04/09/25 04/10/25 23:59 23:59 23:59 Intake Total 47.83 / 47.83 Balance 47.83 / 47.83 Lab / Micro Data 04/10/25 04:23 04/10/25 04:23 Labs: Laboratory Results - last 24 hr 04/09/25 19:24: WBC 5.7, RBC 3.95 L, Hgb 12.4, Hct 37.2, MCV 94.2, MCH 31.4, MCHC 33.3, RDW Std Deviation 44.4 H, RDW Coeff of Gabriella 12.9, Plt Count 216, MPV 9.7, Immature Gran % (Auto) 0.200, Neut % (Auto) 49.3, Lymph % (Auto) 32.1, [place] % (Auto) 12.7 H, Eos % (Auto) 5.2 H, Baso % (Auto) 0.5, Absolute Neuts (auto) 2.8, Absolute Lymphs (auto) 1.84, Nucleated RBC % 0, Sodium 138, Potassium 4.7, Chloride 101, Carbon Dioxide 25.2, Anion Gap 12, BUN 31 H, Creatinine 1.54 H, Estim Creat Clear Calc 23.40 L, Est GFR (MDRD) Non-Af 32 L, BUN/Creatinine Ratio 20.3 H, Glucose 98, Calcium 9.5, Troponin T High Sens 95 H*, NT pro BNP II 828 04/09/25 21:20: Troponin T Hi Sens 2 Hr 86 H* 04/09/25 21:54: PT 13.6, INR 1.0, APTT 28.4 04/09/25 23:27: Troponin T Hi Sens 4Hr 88 H* 04/10/25 04:23: WBC 5.6, RBC 3.72 L, Hgb 11.6 L, Hct 34.1 L, MCV 91.7, MCH 31.2, MCHC 34.0, RDW Std Deviation 42.3, RDW Coeff of Gabriella 12.6, Plt Count 195, MPV 9.5, APTT 180.0 H*, D-Dimer Quant (PE/DVT) 1.00 H*, Sodium 139, Potassium 4.2, Chloride 103, Carbon Dioxide 26.8, Anion Gap 10, BUN 27 H, Creatinine 1.31 H, Estim Creat Clear Calc 26.99 L, Est GFR (MDRD) Non-Af 39 L, BUN/Creatinine Ratio 20.9 H, Glucose 106 H, Calcium 9.4, Total Bilirubin 0.54, AST 19, ALT 22, Alkaline Phosphatase 69, Total Protein 6.3, Albumin 3.8, Globulin 2.5, Albumin/Globulin Ratio 1.6, Triglycerides 54, Cholesterol 169, LDL Cholesterol, Calc 96, VLDL Cholesterol 11, HDL Cholesterol 62, Cholesterol/HDL Ratio 2.74, TSH 2.150 Cardiology Labs/Tests 04/09/25 19:24: WBC 5.7, RBC 3.95 L, Hgb 12.4, Hct 37.2, MCV 94.2, MCH 31.4, MCHC 33.3, Plt Count 216, MPV 9.7, Immature Gran % (Auto) 0.200, Neut % (Auto) 49.3, Lymph % (Auto) 32.1, [place] % (Auto) 12.7 H, Eos % (Auto) 5.2 H, Baso % (Auto) 0.5, Absolute Neuts (auto) 2.8, Nucleated RBC % 0, Sodium 138, Potassium 4.7, Chloride 101, Carbon Dioxide 25.2, Anion Gap 12, BUN 31 H, Creatinine 1.54 H, Est GFR (MDRD) Non-Af 32 L, BUN/Creatinine Ratio 20.3 H, Glucose 98, Calcium 9.5 04/09/25 21:54: PT 13.6, INR 1.0, APTT 28.4 04/10/25 04:23: WBC 5.6, RBC 3.72 L, Hgb 11.6 L, Hct 34.1 L, MCV 91.7, MCH 31.2, MCHC 34.0, Plt Count 195, MPV 9.5, APTT 180.0 H*, D-Dimer Quant (PE/DVT) 1.00 H*, Sodium 139, Potassium 4.2, Chloride 103, Carbon Dioxide 26.8, Anion Gap 10, BUN 27 H, Creatinine 1.31 H, Est GFR (MDRD) Non-Af 39 L, BUN/Creatinine Ratio 20.9 H, Glucose 106 H, Calcium 9.4, Total Bilirubin 0.54, Triglycerides 54, Cholesterol 169, VLDL Cholesterol 11, HDL Cholesterol 62, Cholesterol/HDL Ratio 2.74 Rhythm: EKG: ECHO: Stress Test: Cardiac Cath: PCI: CT Surgery: Holter monitor: EPS: PPM: CXR: Chest CT Scan: Radiography Diagnostic Testing: Radiology Impression Chest X-Ray 04/09/25 19:38 IMPRESSION: Sequela of COPD, without an acute cardiopulmonary abnormality. Reading Location: [facility]
[2025-04-10] MEDS: 0.9% Normal Saline (1000mL) 1,000 ML 60 ML IV ×2 (09:14→23:52)
[2025-04-10] MEDS: Aspirin 81 MG TAB.CHEW PO (09:15)
--- NOTE | 2025-04-10 09:34 | CASEMGMT ---
Patient stated all of her doctors are [facility]. Patient was wondering if the hospital had any transportation available. SW explained the hospital does offer transport, but only to physicians that are associated with [facility]. SW did provide patient with [facility] [employer] transportation companies. Christy PURDY
--- NOTE | 2025-04-10 10:40 | CASEMGMT ---
RN CM Face to Face with patient for initial transition planning/care coordination assessment. RN CM introduced self and role at [facility]. Patient lying in bed, alert and oriented, family at bedside. Patient willing to participate in assessment and is able to answer all questions appropriately. Care providers, pharmacy, and demographics verified. Strata: 2 PCP: Marilia Specialists: ISADORA Gomez; VADIM Woods laboratory tech; Preferred Pharmacy: [facility] Insurance: [facility], Physician [place] Prescription Benefit: yes Living Will/HPOA: yes, Tommy Love LNOK: , daughter Living Arrangements: Patient lives with in a 2 story home. Patient is independent and has stair lift to the second floor. Transportation: self, family DME/HHC: Patient has shower chair, grab bars, raised toilet, cane, walker, and pulse ox at home. Patient had been to TCU in the past. Patient has had [facility] in the past. Patient wishes to discharge home, denies need for home health at this time. Patient states he has no further needs or concerns at this time. CM to follow for discharge planning needs that may arise. Disposition Plan: Patient to discharge home with family support and follow-up plans in place. Manjula GARRETT, RN, CM
--- NOTE | 2025-04-10 12:05 | NURSING ---
Report called to Bria GALLARDO in [employer].
--- NOTE | 2025-04-10 14:39 | DCINST_ITS ---
Discharge Instructions DC O2, CPAP, BIPAP needs Home O2 Discharge instructions: No Follow Up Care Test Results: Test results from this visit will be discussed in further detail at your follow- up appointment, if applicable. Discharge Plan Admission Admit Date/Time: 04/09/25 23:42 Primary Reason for Your Visit: Chest pain Attending Provider: Adilson Melchor Primary Care Provider: Miguelina Capellan Consulting Providers: Vasile Reyes; Migel Godoy Instructions Additional Instructions / Restrictions: Continue home medications as normal. Follow-up with your [employer] manufacturing sales representative in the near future. Discharge Orders/Prescriptions Prescriptions: Continued levothyroxine 88 MCG tablet 88 mcg PO DAILY aspirin 81 MG tablet,chewable 81 mg PO DAILY@0800 labetalol 200 MG tablet 100 mg PO BID cholecalciferol (vitamin D3) 25 MCG capsule 25 mcg PO DAILY melatonin 5 MG capsule 5 mg PO QHS clonidine 0.1 mg/24 hr patch weekly 1 patch transdermal QWEEK Patient Comments: Apply 1 patch topically one time a week as directed furosemide 20 mg tablet 20 mg PO .COMPLEX Patient Comments: TAKE 1 TABLET BY MOUTH EVERY WEDNESDAY,WEDNESDAY,WEDNESDAY (0600). Rx Instructions: 20 mg orally Wednesday, Wednesday, Wednesday; ondansetron 4 mg tablet,disintegrating 4 mg PO Q8H PRN PRN (Reason: Nausea) Qty: 10 0RF minoxidil 2.5 mg tablet 2.5 mg PO DAILY indapamide 1.25 mg tablet 1.25 mg PO DAILY nitroglycerin 0.4 mg tablet, sublingual 0.4 mg sublingual PRN Referrals / Follow Up: Miguelina Capellan MD [Primary Care Provider] - Disposition Disposition (needs filled in before D/C Order can be placed): Home, Self Care
--- NOTE | 2025-04-10 14:39 | PCM.DC.SUM ---
Providers Date of Admission: 04/09/25 Primary Care Physician: Dr. Miguelina Capellan MD Consultations 04/10/25 00:12 Consult: Cardiology Routine Consulting Provider: Vasile Reyes Reason for Consult: Chest Pain EMERGENT Consult: No MD Notified: Yes Date Notified: 04/09/25 Time Notified: 23:45 Method of Notification: ED Physician Initiated Reason For Visit: chest pain with ELEVATED TROPOPIN Diagnosis Discharge Diagnosis (1) NSTEMI (non-ST elevated myocardial infarction): Status: Acute Code(s): I21.4 - Non-ST elevation (NSTEMI) myocardial infarction (2) Chronic diastolic CHF (congestive heart failure): Status: Chronic Code(s): I50.32 - Chronic diastolic (congestive) heart failure (3) HTN (hypertension): Status: Chronic Code(s): I10 - Essential (primary) hypertension Medications at Discharge Home Medications aspirin 81 mg chewable tablet 81 mg PO DAILY@0800 heart 01/18/18 levothyroxine 88 mcg tablet 88 mcg PO DAILY thyroid 01/18/18 cholecalciferol (vitamin D3) 25 mcg (1,000 unit) capsule 25 mcg PO DAILY Supplement 10/16/19 labetalol 200 mg tablet 100 mg PO BID Blood pressure 10/16/19 melatonin 5 mg capsule 5 mg PO QHS Sleep 10/16/19 clonidine 0.1 mg/24 hr weekly transdermal patch 1 patch transdermal QWEEK Hypertension 11/06/23 furosemide 20 mg tablet 20 mg PO .COMPLEX Diuretic 11/06/23 ondansetron 4 mg disintegrating tablet 4 mg PO Q8H PRN PRN Nausea #10 tabs 11/06/23 indapamide 1.25 mg tablet 1.25 mg PO DAILY Vlood pressure 04/09/25 minoxidil 2.5 mg tablet 2.5 mg PO DAILY Hair 04/09/25 nitroglycerin 0.4 mg sublingual tablet 0.4 mg sublingual PRN Chest pain 04/09/25 Medical Records Data Medical Nutrition Assessment Dietitian: Malnutrition Criteria Met Start: 04/10/25 11:16 Freq: Status: Active Protocol: Document 04/10/25 11:16 SB (Rec: 04/10/25 11:16 SB [id number]) Nutrition Malnutrition Evidence of Yes Malnutrition Exists Malnutrition (severe Acute Illness/Injury ): Evidenced By Suboptimal Energy Intake (Moderate),Weight Loss ( Moderate) Intake Problem Inadequate Oral Intake Etiology related to cardio intervention Signs/Symptoms as evidenced by NPO Status Active Problem Clinical Problem Acute Disease or Injury Related Malnutrition Etiology moderate related to inadequate oral intake Signs/Symptoms as evidenced by PO meeting <75% of estimated nutrition needs x 1 week and 2% unintentional weight loss x 1 week. Status Active Problem Recommendation Dietitian Recommend advanced diet as tolerated to liberal regular Recommendations/ diet due to malnutrition. Changes Continue 120ml EPHP TID with medpass, as diet is advanced. Will monitor weight trends. Weight / BMI Weight Weight: 57.6 kg Body Mass Index (BMI) 20.5 ABG / Lab / Microbiology Data 04/10/25 04:23 04/10/25 04:23 Laboratory: Laboratory Results - last 24 hr 04/09/25 19:24: WBC 5.7, RBC 3.95 L, Hgb 12.4, Hct 37.2, MCV 94.2, MCH 31.4, MCHC 33.3, RDW Std Deviation 44.4 H, RDW Coeff of Gabriella 12.9, Plt Count 216, MPV 9.7, Immature Gran % (Auto) 0.200, Neut % (Auto) 49.3, Lymph % (Auto) 32.1, [place] % (Auto) 12.7 H, Eos % (Auto) 5.2 H, Baso % (Auto) 0.5, Absolute Neuts (auto) 2.8, Absolute Lymphs (auto) 1.84, Nucleated RBC % 0, Sodium 138, Potassium 4.7, Chloride 101, Carbon Dioxide 25.2, Anion Gap 12, BUN 31 H, Creatinine 1.54 H, Estim Creat Clear Calc 23.40 L, Est GFR (MDRD) Non-Af 32 L, BUN/Creatinine Ratio 20.3 H, Glucose 98, Calcium 9.5, Troponin T High Sens 95 H*, NT pro BNP II 828 04/09/25 21:20: Troponin T Hi Sens 2 Hr 86 H* 04/09/25 21:54: PT 13.6, INR 1.0, APTT 28.4 04/09/25 23:27: Troponin T Hi Sens 4Hr 88 H* 04/10/25 04:23: WBC 5.6, RBC 3.72 L, Hgb 11.6 L, Hct 34.1 L, MCV 91.7, MCH 31.2, MCHC 34.0, RDW Std Deviation 42.3, RDW Coeff of Gabriella 12.6, Plt Count 195, MPV 9.5, APTT 180.0 H*, D-Dimer Quant (PE/DVT) 1.00 H*, Sodium 139, Potassium 4.2, Chloride 103, Carbon Dioxide 26.8, Anion Gap 10, BUN 27 H, Creatinine 1.31 H, Estim Creat Clear Calc 26.99 L, Est GFR (MDRD) Non-Af 39 L, BUN/Creatinine Ratio 20.9 H, Glucose 106 H, Calcium 9.4, Total Bilirubin 0.54, AST 19, ALT 22, Alkaline Phosphatase 69, Total Protein 6.3, Albumin 3.8, Globulin 2.5, Albumin/Globulin Ratio 1.6, Triglycerides 54, Cholesterol 169, LDL Cholesterol, Calc 96, VLDL Cholesterol 11, HDL Cholesterol 62, Cholesterol/HDL Ratio 2.74, TSH 2.150 Radiography Diagnostic Testing: Radiology Impression Chest X-Ray 04/09/25 19:38 IMPRESSION: Sequela of COPD, without an acute cardiopulmonary abnormality. Reading Location: [facility] Echocardiogram 04/10/25 00:12 Interpretation Summary The left ventricular ejection fraction is 60 %. Normal LV size. Apical noncompaction noted There is mild to moderate mitral annular calcification. Stage 1 diastolic dysfunction. The global longitudinal strain is normal. The global longitudinal strain = -18.9 % (normal). Ordering Physician: Migel Godoy Performed By: Alysha Conner RDCS Meaningful Use Info Ischemic Stroke Statin Dosing Therapy Reference: STATIN DOSE THERAPY REFERENCE: * Patients > 75 years receive moderate or high dose statin therapy. * Patients 75 years or YOUNGER should receive HIGH intensity statin dose unless contraindicated. You will be required to document reason for non-treatment if statin daily dose does not meet guidelines. HIGH DOSE STATIN THERAPY DAILY Atorvastatin > than or = to 40 mg Rosuvastatin > than or = to 20 mg Amlodipine + Atorvastatin > than or = to 2.5/40 mg Ezetimibe + Simvastatin 10/80 mg Simvastatin 80mg Discharge Plan Admission Admit Date/Time: 04/09/25 23:42 Attending Provider: Adilson Melchor Primary Care Provider: Miguelina Capellan Consulting Providers: Vasile Reyes; Migel Godoy Discharge Orders/Prescriptions Prescriptions: No Action levothyroxine 88 MCG tablet 88 mcg PO DAILY aspirin 81 MG tablet,chewable 81 mg PO DAILY@0800 labetalol 200 MG tablet 100 mg PO BID cholecalciferol (vitamin D3) 25 MCG capsule 25 mcg PO DAILY melatonin 5 MG capsule 5 mg PO QHS clonidine 0.1 mg/24 hr patch weekly 1 patch transdermal QWEEK Patient Comments: Apply 1 patch topically one time a week as directed furosemide 20 mg tablet 20 mg PO .COMPLEX Patient Comments: TAKE 1 TABLET BY MOUTH EVERY WEDNESDAY,WEDNESDAY,WEDNESDAY (0600). Rx Instructions: 20 mg orally Wednesday, Wednesday, Wednesday; ondansetron 4 mg tablet,disintegrating 4 mg PO Q8H PRN PRN (Reason: Nausea) Qty: 10 0RF minoxidil 2.5 mg tablet 2.5 mg PO DAILY indapamide 1.25 mg tablet 1.25 mg PO DAILY nitroglycerin 0.4 mg tablet, sublingual 0.4 mg sublingual PRN Referrals / Follow Up: Miguelina Capellan MD [Primary Care Provider] -
--- NOTE | 2025-04-10 16:29 | PCM.PN.HOSP ---
Reason for Visit Reason for Visit: Diagnoses Essential (primary) hypertension (04/09/25) Hypertensive emergency (04/09/25) Non-ST elevation (NSTEMI) myocardial infarction (04/09/25) Chronic diastolic (congestive) heart failure (04/09/25) Other chest pain (04/09/25) Other specified abnormal findings of blood chemistry (04/09/25) Subjective Subjective Saw patient at bedside this morning, multiple family members present. Patient was sitting back comfortably in bed, conversing normally, in no acute distress. She denied any chest pain or shortness breath at rest. Plan was for left heart cath for further evaluation for coronary disease. I saw the patient again this afternoon. Left heart cath was negative for coronary disease. However, lower extremity duplex ultrasound preliminary report showed small clots in her left gastrocnemius vein and left posterior tibial vein. Given her elevated troponins and chest pain with exertion on admission, cannot rule out PE. Notably patient is not hypoxic on room air and echo showed no right heart strain. Because patient had contrast with left heart cath today and has CKD stage IIIb, I recommended that CTA chest for evaluation for PE not be done until tomorrow morning. They were agreeable with this plan. Objective Data Objective Data Vital Signs: Vital Signs Temp Pulse Resp BP Pulse Ox O2 Del Method O2 Flow Rate 96.0 F L 55 L 13 162/71 H 92 Room Air 95 04/10/25 13:43 04/10/25 13:43 04/10/25 13:43 04/10/25 13:43 04/10/25 13:43 04/10/25 13:43 04/10/25 08:56 Oxygen Flow Rate (L/min) 95 Oxygen Delivery Method Room Air Weight: 57.6 kg Body Mass Index (BMI) 20.5 Intake & Output: Intake and Output for Last 24 Hours 04/08/25 04/09/25 04/10/25 23:59 23:59 23:59 Intake Total 70.83 / 70.83 Balance 70.83 / 70.83 Medical Nutrition Assessment Dietitian: Malnutrition Criteria Met Start: 04/10/25 11:16 Freq: Status: Active Protocol: Document 04/10/25 11:16 SB (Rec: 04/10/25 11:16 SB [id number]) Nutrition Malnutrition Evidence of Yes Malnutrition Exists Malnutrition (severe Acute Illness/Injury ): Evidenced By Suboptimal Energy Intake (Moderate),Weight Loss ( Moderate) Intake Problem Inadequate Oral Intake Etiology related to cardio intervention Signs/Symptoms as evidenced by NPO Status Active Problem Clinical Problem Acute Disease or Injury Related Malnutrition Etiology moderate related to inadequate oral intake Signs/Symptoms as evidenced by PO meeting <75% of estimated nutrition needs x 1 week and 2% unintentional weight loss x 1 week. Status Active Problem Recommendation Dietitian Recommend advanced diet as tolerated to liberal regular Recommendations/ diet due to malnutrition. Changes Continue 120ml EPHP TID with medpass, as diet is advanced. Will monitor weight trends. Lab / Micro Data 04/10/25 04:23 04/10/25 04:23 Labs: Laboratory Results - last 24 hr 04/09/25 19:24: WBC 5.7, RBC 3.95 L, Hgb 12.4, Hct 37.2, MCV 94.2, MCH 31.4, MCHC 33.3, RDW Std Deviation 44.4 H, RDW Coeff of Gabriella 12.9, Plt Count 216, MPV 9.7, Immature Gran % (Auto) 0.200, Neut % (Auto) 49.3, Lymph % (Auto) 32.1, Dillon % (Auto) 12.7 H, Eos % (Auto) 5.2 H, Baso % (Auto) 0.5, Absolute Neuts (auto) 2.8, Absolute Lymphs (auto) 1.84, Nucleated RBC % 0, Sodium 138, Potassium 4.7, Chloride 101, Carbon Dioxide 25.2, Anion Gap 12, BUN 31 H, Creatinine 1.54 H, Estim Creat Clear Calc 23.40 L, Est GFR (MDRD) Non-Af 32 L, BUN/Creatinine Ratio 20.3 H, Glucose 98, Calcium 9.5, Troponin T High Sens 95 H*, NT pro BNP II 828 04/09/25 21:20: Troponin T Hi Sens 2 Hr 86 H* 04/09/25 21:54: PT 13.6, INR 1.0, APTT 28.4 04/09/25 23:27: Troponin T Hi Sens 4Hr 88 H* 04/10/25 04:23: WBC 5.6, RBC 3.72 L, Hgb 11.6 L, Hct 34.1 L, MCV 91.7, MCH 31.2, MCHC 34.0, RDW Std Deviation 42.3, RDW Coeff of Gabriella 12.6, Plt Count 195, MPV 9.5, APTT 180.0 H*, D-Dimer Quant (PE/DVT) 1.00 H*, Sodium 139, Potassium 4.2, Chloride 103, Carbon Dioxide 26.8, Anion Gap 10, BUN 27 H, Creatinine 1.31 H, Estim Creat Clear Calc 26.99 L, Est GFR (MDRD) Non-Af 39 L, BUN/Creatinine Ratio 20.9 H, Glucose 106 H, Calcium 9.4, Total Bilirubin 0.54, AST 19, ALT 22, Alkaline Phosphatase 69, Total Protein 6.3, Albumin 3.8, Globulin 2.5, Albumin/Globulin Ratio 1.6, Triglycerides 54, Cholesterol 169, LDL Cholesterol, Calc 96, VLDL Cholesterol 11, HDL Cholesterol 62, Cholesterol/HDL Ratio 2.74, TSH 2.150 Radiography Diagnostic Testing: Radiology Impression Chest X-Ray 04/09/25 19:38 IMPRESSION: Sequela of COPD, without an acute cardiopulmonary abnormality. Reading Location: [facility] Echocardiogram 04/10/25 00:12 Interpretation Summary The left ventricular ejection fraction is 60 %. Normal LV size. Apical noncompaction noted There is mild to moderate mitral annular calcification. Stage 1 diastolic dysfunction. The global longitudinal strain is normal. The global longitudinal strain = -18.9 % (normal). Ordering Physician: Migel Godoy Performed By: Alysha Conner RDCS Physical Exam Const alert, oriented x3, no apparent distress and average body habitus Constitutional Narrative: Pleasant elderly female, mildly fatigued appearing but otherwise sitting back comfortably in bed, conversing normally, in no acute distress. General Appearance: cooperative and comfortable HEENT normocephalic, head/scalp atraumatic, hearing grossly normal bilaterally, nasal mucous membranes and turbinates normal and moist oral mucous membranes Eyes PERRL, EOMs intact bilaterally and conjunctivae normal Neck full ROM Chest inspection of chest normal Resp normal respiratory effort, normal air movement, no use of accessory muscles and clear to auscultation bilaterally Cardio regular rate, regular rhythm, no murmurs and peripheral pulses 2+ throughout GI normal to inspection, nondistended, normoactive bowel sounds, soft to palpation, non-tender and non-distended Back/Spine normal ROM Extremity full ROM Extremity Narrative: Trace lower extremity nonpitting edema noted bilaterally. Skin no rashes or lesions noted Psych mental status grossly normal Assessment & Plan Assessment/Plan (1) NSTEMI (non-ST elevated myocardial infarction): PLAN: Plan Patient is an 89-year-old female who presented to [facility] ED on 04/09/2025 for chest pain. 1. NSTEMI, acute LLE DVT with concern for PE ? Cardiology following. Presented with worsening chest pain over the past 4 to 5 days. Troponin trend 95 > 86 > 88. EKG with normal sinus rhythm, no ischemic changes. Given history of heart failure as below, patient was taken for left heart cath this morning. Left heart cath showed mild disease in the circumflex and RCA and moderate disease up to 50% stenosis in the LAD. Recommendation was for medical management. Echo showed EF 60%, stage I diastolic dysfunction, no other concerning findings. D-dimer was mildly elevated on admit and lower extremity duplex ultrasound preliminary report shows acute DVT in the left gastrocnemius and posterior tibial veins. Cannot rule out PE. As patient had contrast with cath today, we will plan for CTA chest tomorrow morning. Will continue with IV fluids till after CT tomorrow given CKD as below. Okay for heparin subcu for now and pending CT results, will determine if patient needs anticoagulation on discharge. 2. CKD stage IIIb ? Patient stable at baseline creatinine 1.3-1.5. Did receive IV contrast for cath as above, continue to monitor daily BMP. 3. Chronic HFpEF, hypertension ? Follows with [facility] cardiology. Echo findings on admit as above. Continue home labetalol, indapamide, and weekly clonidine patch. 4. Hypothyroidism ? Continue home Synthroid. DVT prophylaxis: Heparin subcu CODE STATUS: Full code, unverified Expected disposition: Home, 1 to 2 days Total clinical time spent by myself addressing the patient's medical issues, reviewing all the data, and collaborating with patient's care team: 35 minutes. Charges/Coding Visit Charges Inpatient E&M: 53413 Subs Hosp L2
--- NOTE | 2025-04-10 19:55 | NURSING ---
All documentation reviewed with PAULINA Yang
[2025-04-10] MEDS: Heparin Injection (Vial) 5,000 UNIT/ML VIAL 5000 UNIT SC (20:35)
[2025-04-11 04:03] LABS: Hematocrit 33.4 % (37-47); Hemoglobin 11.3 g/dL (12.0-15.0); Mean Corp Hgb Conc 33.8 g/dL (32-36); Mean Corpuscular Hgb 31.5 pg (27.0-32.0); Mean Platelet Vol. 9.7 fl (6.2-12.0); Platelet Count 210 K/mm3 (150-450); RBC Distribution Width CV 12.7 % (11.6-14.6); RBC Distribution Width SD 43.1 fl (35.1-43.9); Red Blood Count 3.59 M/mm3 (4.2-5.4); White Blood Count 4.9 K/mm3 (4.4-11.0)
[2025-04-11 04:38] LABS: Anion Gap 11 (5-15); BUN 25 mg/dL (4-19); BUN/Creat Ratio 20.8 RATIO (10-20); Calcium,Total 9.2 mg/dL (7.6-11.0); Carbon Dioxide 24.1 mmol/L (21.0-32.0); Chloride 105 mmol/L (98-108); Creatinine, Serum 1.19 mg/dL (0.70-1.20); EST Glomerular Filtration Rate 44 (>60); Estimated Creatinine Clearance 29.71 ml/min (50-250); Glucose 84 mg/dL (70-99); Potassium 4.3 mmol/L (3.3-5.1); Sodium Level 140 mmol/L (133-145)
[2025-04-11 05:10] VITALS: BP 170/80; PULSE 73; RESP 18; TEMP 36.3; O2SAT 95
[2025-04-11] MEDS: Levothyroxine 88 MCG Tablet PO (05:11)
[2025-04-11] MEDS: Heparin Injection (Vial) 5,000 UNIT/ML VIAL 5000 UNIT SC (05:11)
[2025-04-11 07:39] VITALS: O2SAT 95
--- NOTE | 2025-04-11 08:18 | CT_ITS ---
PROCEDURE: CTA CHEST W/WO CONTRAST 04/11/2025 REASON FOR EXAM: ACUTE DVT, EVAL FOR PE TECHNIQUE: CTA CHEST W/WO CONTRAST Multiplanar Sagittal and Coronal images were obtained. CONTRAST: 54 cc Isovue 370 One or more dose reduction techniques were used (e.g., Automated exposure control, adjustment of the mA and/or kV according to patient size, use of iterative reconstruction technique). RADIATION DOSE SUMMARY: DLP: 110.03 mGycm COMPARISON: April 09, 2025 chest x-ray FINDINGS: Hardware: None Lymph nodes: There is no pathologic adenopathy by size criteria. Heart: Intact Atherosclerotic calcifications are visible. RV/LV Diameter Ratio: 0.8 Thoracic Aorta: Intact Pulmonary Vessels: Main pulmonary artery Hounsfield units = 693. There is no visible pulmonary embolus. Lungs and Airways: Scar is noted at the apices. There is a 0.5 cm solid pulmonary nodule in the right upper lung, image 223/240.. There is a 0.6 cm solid pulmonary nodule in the right upper lung, image 223/240. There is a 0.4 cm solid peripheral pulmonary nodule in the right upper lung, image 204/240. There is a 0.4 cm solid pulmonary nodule in the right midlung, image 107/240. There are tree-in-bud nodular densities in the right middle lobe. There is a 0.6 cm solid nodular density in the left lingular segment, image 61/240. There is a 1.0 x 0.7 irregular solid density in the left upper lung, image 209/240. Pleura: Nodular pleural thickening is present in the right and left. Upper Abdomen: There is a 0.3 cm nonobstructing stone partly visible in the left kidney. Bones: There is no acute bony abnormality. CT/CTA Chest W/WO Contrast IMPRESSION: There is no visible pulmonary embolus. There is a 0.5 cm solid pulmonary nodule in the right upper lung, image 223/240 .. There is a 0.6 cm solid pulmonary nodule in the right upper lung, image 223/240. There is a 0.4 cm solid peripheral pulmonary nodule in the right upper lung, image 204/240. There is a 0.4 cm solid pulmonary nodule in the right midlung, image 107/240. There are tree-in-bud nodular densities in the right middle lobe. There is a 0.6 cm solid nodular density in the left lingula r segment, image 61/240. There is a 1.0 x 0.7 irregular solid density in the left upper lung, image 209/240. follow-up is rec ommended per Fleischner criteria. There is a 0.3 cm nonobstructing stone partly visible in the left kidney. Reading Location: [facility]
[2025-04-11 10:43] VITALS: BP 143/83; PULSE 79; RESP 16; TEMP 36.7; O2SAT 94
[2025-04-11] MEDS: Aspirin 81 MG TAB.CHEW PO (10:45)
[2025-04-11] MEDS: Labetalol 100 MG Tablet PO (10:45)
[2025-04-11] MEDS: Indapamide 2.5 MG Tablet 1.25 MG PO (10:46)
[2025-04-11] MEDS: Cholecalciferol (VIT D3) 25 MCG TABLET (1,000 UNITS) PO (10:47)
--- NOTE | 2025-04-11 12:11 | DS.PCM_ITS ---
Providers Date of Admission: 04/09/25 Date of Discharge: 04/11/25 Primary Care Physician: Dr. Miguelina Capellan MD Consultations 04/10/25 00:12 Consult: Cardiology Routine Consulting Provider: Vasile Reyes Reason for Consult: Chest Pain EMERGENT Consult: No MD Notified: Yes Date Notified: 04/09/25 Time Notified: 23:45 Method of Notification: ED Physician Initiated Reason For Visit: chest pain with ELEVATED TROPOPIN Diagnosis Discharge Diagnosis (1) NSTEMI (non-ST elevated myocardial infarction): Status: Acute Code(s): I21.4 - Non-ST elevation (NSTEMI) myocardial infarction Medications at Discharge Home Medications levothyroxine 88 mcg tablet 88 mcg PO DAILY thyroid 01/18/18 labetalol 200 mg tablet 100 mg PO BID Blood pressure 10/16/19 melatonin 5 mg capsule 5 mg PO QHS Sleep 10/16/19 clonidine 0.1 mg/24 hr weekly transdermal patch 1 patch transdermal QWEEK Hypertension 11/06/23 indapamide 1.25 mg tablet 1.25 mg PO DAILY Vlood pressure 04/09/25 minoxidil 2.5 mg tablet 2.5 mg PO DAILY Hair 04/09/25 nitroglycerin 0.4 mg sublingual tablet 0.4 mg sublingual PRN Chest pain 04/09/25 biotin 5 mg capsule 5 mg PO DAILY Supplement 04/10/25 dapagliflozin propanediol 5 mg tablet (Farxiga) 5 mg PO DAILY Heart Failure 04/10/25 ketoconazole 2 % shampoo 1 applic topical .2-3 times weekly Rash 04/10/25 apixaban 5 mg tablet (Eliquis) 5 mg PO BID 30 days #60 tabs 04/11/25 Hospital Course Operations None Procedures Cardiac catheterization, EKG, Transthoracic echo and - (Lower extremity duplex ultrasound, CTA chest, chest x-ray) Summary of Care Provided Minutes Spent on Discharge: 35 Hospital Course: Patient is an 89-year-old female who presented to [facility] ED on 04/09/2025 for chest pain. Hospital course as noted below. Patient discharged home in stable condition on 04/11. 1. NSTEMI, acute LLE DVT ? Cardiology followed. Presented with worsening chest pain over the past 4 to 5 days. Troponin trend 95 > 86 > 88. EKG with normal sinus rhythm, no ischemic changes. Given history of heart failure as below, patient had left heart cath done that showed only mild disease in the circumflex and RCA and moderate disease up to 50% stenosis in the LAD. Recommendation was for medical management. Echo showed EF 60%, stage I diastolic dysfunction, no other concerning findings. D-dimer was mildly elevated on admit and lower extremity duplex ultrasound showed acute DVT in the left gastrocnemius and posterior tibial veins. CTA chest on 04/11 showed no PE. Discussed with patient and family and will treat with Eliquis 5 mg twice daily with plan for 3 months of anticoagulation therapy. Will not give loading dose given this is a small DVT and we wish to minimize bleeding risk. Recommend repeat lower extremity duplex ultrasound in 3 months for further evaluation and if DVT has resolved, suspect patient will be okay to discontinue anticoagulation therapy. Recommend outpatient follow up with [facility] cardiology as needed. 2. Pulmonary nodules ? CTA chest on 04/11 showed multiple small pulmonary nodules of unclear significance. Patient with no other concerning findings and stable on room air. Recommend repeat CT chest in 3 to 6 months for further evaluation. 3. CKD stage IIIb ? Patient stable at baseline creatinine 1.3-1.5 during hospitalization. 4. Chronic HFpEF, hypertension ? Follows with [facility] cardiology. Echo findings on admit as above. Continue home labetalol, indapamide, and weekly clonidine patch. 5. Hypothyroidism ? Continue home Synthroid. Total clinical time spent by myself addressing the patient's medical issues, reviewing all the data, and collaborating with patient's care team: 35 minutes. Physical Exam Const alert, oriented x3, no apparent distress and average body habitus Constitutional Narrative: Pleasant elderly female, energy level improved from admission, sitting back comfortably in bed, conversing normally, in no acute distress. General Appearance: cooperative and comfortable HEENT normocephalic, head/scalp atraumatic, hearing grossly normal bilaterally, nasal mucous membranes and turbinates normal and moist oral mucous membranes Eyes PERRL, EOMs intact bilaterally and conjunctivae normal Neck full ROM Chest inspection of chest normal Resp normal respiratory effort, normal air movement, no use of accessory muscles and clear to auscultation bilaterally Cardio regular rate, regular rhythm, no murmurs and peripheral pulses 2+ throughout GI normal to inspection, nondistended, normoactive bowel sounds, soft to palpation, non-tender and non-distended Back/Spine normal ROM Extremity full ROM Extremity Narrative: Trace lower extremity nonpitting edema noted bilaterally, stable. Skin no rashes or lesions noted Psych mental status grossly normal Medical Records Data Medical Nutrition Assessment Dietitian: Malnutrition Criteria Met Start: 04/10/25 11:16 Freq: Status: Active Protocol: Document 04/10/25 11:16 SB (Rec: 04/10/25 11:16 SB [id number]) Nutrition Malnutrition Evidence of Yes Malnutrition Exists Malnutrition (severe Acute Illness/Injury ): Evidenced By Suboptimal Energy Intake (Moderate),Weight Loss ( Moderate) Intake Problem Inadequate Oral Intake Etiology related to cardio intervention Signs/Symptoms as evidenced by NPO Status Active Problem Clinical Problem Acute Disease or Injury Related Malnutrition Etiology moderate related to inadequate oral intake Signs/Symptoms as evidenced by PO meeting <75% of estimated nutrition needs x 1 week and 2% unintentional weight loss x 1 week. Status Active Problem Recommendation Dietitian Recommend advanced diet as tolerated to liberal regular Recommendations/ diet due to malnutrition. Changes Continue 120ml EPHP TID with medpass, as diet is advanced. Will monitor weight trends. Weight / BMI Weight Weight: 57.6 kg Body Mass Index (BMI) 20.5 ABG / Lab / Microbiology Data 04/11/25 03:23 04/11/25 03:23 Laboratory: Laboratory Results - last 24 hr 04/11/25 03:23: WBC 4.9, RBC 3.59 L, Hgb 11.3 L, Hct 33.4 L, MCV 93.0, MCH 31.5, MCHC 33.8, RDW Std Deviation 43.1, RDW Coeff of Gabriella 12.7, Plt Count 210, MPV 9.7, Sodium 140, Potassium 4.3, Chloride 105, Carbon Dioxide 24.1, Anion Gap 11, BUN 25 H, Creatinine 1.19, Estim Creat Clear Calc 29.71 L, Est GFR (MDRD) Non-Af 44 L, BUN/Creatinine Ratio 20.8 H, Glucose 84, Calcium 9.2 Radiography Diagnostic Testing: Radiology Impression Venous Doppler Study 04/10/25 05:14 Interpretation Summary Acute deep vein thrombosis noted in the left gastrocnemius vein, posterior tibial vein. Hypoechoic, non vascular structure noted right popliteal fossa measuring 1.18cm x 2.28cm Ordering Physician: Migel Godoy Referring Physician: Miguelina Capellan Performed By: Treva Singer, RDCS, RVT Chest CTA 04/11/25 08:18 IMPRESSION: There is no visible pulmonary embolus. There is a 0.5 cm solid pulmonary nodule in the right upper lung, image 223/240.. There is a 0.6 cm solid pulmonary nodule in the right upper lung, image 223/240. There is a 0.4 cm solid peripheral pulmonary nodule in the right upper lung, image 204/240. There is a 0.4 cm solid pulmonary nodule in the right midlung, image 107/240. There are tree-in-bud nodular densities in the right middle lobe. There is a 0.6 cm solid nodular density in the left lingular segment, image 61/240. There is a 1.0 x 0.7 irregular solid density in the left upper lung, image 209/240. follow-up is recommended per Fleischner criteria. There is a 0.3 cm nonobstructing stone partly visible in the left kidney. Reading Location: [facility] Instructions DC O2, CPAP, BIPAP Needs Home O2 Discharge instructions: No Meaningful Use Info Meaningful Use Meaningful Use Diagnoses (Choose all that apply): None applicable Ischemic Stroke Statin Dosing Therapy Reference: STATIN DOSE THERAPY REFERENCE: * Patients > 75 years receive moderate or high dose statin therapy. * Patients 75 years or YOUNGER should receive HIGH intensity statin dose unless contraindicated. You will be required to document reason for non-treatment if statin daily dose does not meet guidelines. HIGH DOSE STATIN THERAPY DAILY Atorvastatin > than or = to 40 mg Rosuvastatin > than or = to 20 mg Amlodipine + Atorvastatin > than or = to 2.5/40 mg Ezetimibe + Simvastatin 10/80 mg Simvastatin 80mg Discharge Plan Admission Admit Date/Time: 04/09/25 23:42 Primary Reason for Your Visit: Chest pain Attending Provider: Adilson Melchor Primary Care Provider: Miguelina Capellan Consulting Providers: Vasile Reyes; Migel Godoy Discharge Orders/Prescriptions Prescriptions: New Eliquis 5 mg tablet 5 mg PO BID 30 Days Qty: 60 2RF Continued levothyroxine 88 MCG tablet 88 mcg PO DAILY labetalol 200 MG tablet 100 mg PO BID melatonin 5 MG capsule 5 mg PO QHS clonidine 0.1 mg/24 hr patch weekly 1 patch transdermal QWEEK Patient Comments: Apply 1 patch topically one time a week as directed minoxidil 2.5 mg tablet 2.5 mg PO DAILY indapamide 1.25 mg tablet 1.25 mg PO DAILY nitroglycerin 0.4 mg tablet, sublingual 0.4 mg sublingual PRN dapagliflozin propanediol [Farxiga] 5 mg tablet 5 mg PO DAILY ketoconazole 2 % shampoo 1 applic topical .2-3 times weekly biotin 5 mg capsule 5 mg PO DAILY Discontinued aspirin 81 MG tablet,chewable 81 mg PO DAILY@0800 olanzapine .ROUTE PRN (Reason: nausea) Referrals / Follow Up: Miguelina Capellan MD [Primary Care Provider] - 04/27/25 10:40 am (appointment with Ruby Levy) Disposition Disposition (needs filled in before D/C Order can be placed): Home, Self Care Charges/Coding Visit Charges Inpatient E&M: 13424 Disch Hosp >30min
[2025-04-11 15:39] VITALS: BP 139/88; PULSE 76; RESP 16; TEMP 36.7; O2SAT 92
--- NOTE | 2025-04-11 15:45 | CASEMGMT ---
Patient has order for discharge. Patient is discharging on Eliquis, patient has copay of $139.52. RN CM in to discuss needs at discharge. RN CM updated patient regarding Eliquis copay, savings card provided to patient. Patient denies needs or help at discharge. Patient had no further questions or concerns.
--- NOTE | 2025-05-28 09:45 | CL.D_ITS ---
Patient Name: ZENAIDA WILKINSON Study Date: 04/10/2025 Performing: Vasile Reyes MD Ht: 66 inches 167.64 cm : 1935 Wt: 124.98 lbs 56.69 kg Age: 89 Gender: female BSA: 1.64 PROCEDURE(S) PERFORMED [id number])[facility] CLINICAL PROFILE AND INDICATIONS Indications: Suspected CAD Heart Failure: None Stress/Imaging Stress/Image Study Performed: No CAD Presentations: Unstable angina. CONCLUSIONS Non obstructive coronary arteries Hypertension RECOMMENDATIONS Medical therapy DESCRIPTION OF PROCEDURE The patient arrived to the procedure lab. The risks and benefits of the procedure as well as a full description of our services here and current unavailability of surgical backup were fully explained to the patient and/or their significant other prior to the catheterization. The Timeout was completed, verifying the correct patient and procedure. The patient's procedural site was prepped and draped in the usual fashion. Local anesthetic was given subcutaneously to right radial region with Lidocaine 2%. Using a modified Seldinger technique, arterial access was obtained via the right radial artery, a 6Fr sheath was inserted. Left Coronary Artery selective angiography was performed in multiple views using a 5 Fr. 4.0 [place] catheter. Right Coronary Artery selective angiography was then performed in multiple views using a 5 Fr. 4.0 [place] catheter.The arterial sheath was pulled and a TR Band was applied for hemostasis 9 ml of air CORONARY ANGIOGRAPHY DOMINANCE: Right Dominant LEFT HEART ASSESSMENT Left Ventricular Ejection Fraction: by Echo 65 % Normal LV wall motion Normal Left Ventricular systolic function LEFT ANTERIOR DESCENDING ARTERY: Moderate luminal irregularities up to 50% CIRCUMFLEX ARTERY: Mild luminal irregularities less than 30% RIGHT CORONARY ARTERY: Mild luminal irregularities less than 30% COMPLICATIONS No Complications PROCEDURE MEDICATIONS Fentanyl 50 mcg IV Versed 1 mg IV Oxygen: 2 L/min via nasal cannula Heparin given IA 04/10/2025 12:46:34 Verapamil 2.5mg, Ntg 100mcgs, 3000 units of Heparin given IA 04/10/2025 12:46:34 SUMMARY OF HEMODYNAMIC DATA Time AIR REST ECG 12:23:11 AO 151/56 (94) SA 12:55:45 Signed By Vasile Reyes MD On 04/10/2025 13:06:58 Vasile Reyes MD
== END 2025-04-11 16:14 | disposition home or self-care (01) | DRG 281 ==
LOC: ED 23:18 → PCU 23:42
PROVIDERS: Admitting Provider Internal Medicine; Emergency Provider Emergency Medicine; PCP Internal Medicine; Visit Provider Hospitalist
DX: I21.4 Non-ST elevation (NSTEMI) myocardial infarction (principal); E44.0 Moderate protein-calorie malnutrition; I82.442 Acute embolism and thrombosis of left tibial vein; I13.0 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 disease, or unspecified chronic kidney disease; I50.32 Chronic diastolic (congestive) heart failure; I82.462 Acute embolism and thrombosis of left calf muscular vein; N18.32 Chronic kidney disease, stage 3b; E03.9 Hypothyroidism, unspecified; G62.9 Polyneuropathy, unspecified; M19.90 Unspecified osteoarthritis, unspecified site; R91.1 Solitary pulmonary nodule; Z87.891 Personal history of nicotine dependence; Z79.899 Other long term (current) drug therapy; Z68.20 Body mass index [BMI] 20.0-20.9, adult
CPT/HCPCS: 36415; 71045; 71275; 80048; 80053; 80061; 83880; 84443; 84484; 85025; 85027; 85379; 85610; 85730; 93005; 93306; 93454; 93970; 97802; 99152; 99285; Q9967; A4216; C1769; C1894

== ENCOUNTER 2025-04-27 13:14 | Inpatient (IN) | payer MEDICARE, OTHER, SELFPAY ==
[2025-04-27] VITALS (17 sets, daily range): BP systolic 134–187; BP diastolic 59–84; PULSE 56–89; RESP 9–20; TEMP 36.4–36.6; O2SAT 94–98; BMI 20.7; BMI 20.1
--- NOTE | 2025-04-27 15:16 | RAD_ITS ---
PROCEDURE: CHEST PA AND LATERAL 04/27/2025 REASON FOR EXAM: DYSPNEA TECHNIQUE: CHEST PA AND LATERAL COMPARISON: 04/09/2025 FINDINGS: Lungs/Pleura: No focal consolidation, pneumothorax, or significant pleural effusion. Findings suggestive of COPD/emphysema. No vascular congestion. Heart/Mediastinum: Within normal limits. Bones/Soft tissues: Calcified nodular density with surgical clips in the right breast soft tissues projecting over the right lower lung zone. Degenerative changes of the spine. Qualitative osteopenia. RAD/Chest PA and Lateral IMPRESSION: No evidence of acute cardiopulmonary disease. Reading Location: [id number]
--- NOTE | 2025-04-27 15:16 | EX.ED.DYSGE1 ---
HPI <JOHNNA Witt - Last Filed: 04/27/25 19:52> History of Present Illness Chief Complaint: Dizziness Narrative Narrative: 89-year-old female with past medical history of HTN, HLD, CHF, left lower extremity DVT on Eliquis, hypothyroidism was sent in by her primary care office for low oxygen levels. She was admitted for an NSTEMI on 04/09/2025. Dr. Reyes heart cath which she said was negative. She had an ultrasound showing a left leg DVT and was started on Eliquis. Since she went home on Eliquis she reports feeling lightheaded with standing. She will have to hold onto the counter lower her head for minute until it passes. She denies syncope, she denies room spinning. She states she is also felt short of breath when walking around her home or going upstairs since then. No chest pain since her admission. She followed up with her primary care office today and her pulse ox was 88% so they recommended she come to the ED. Her baseline weight is 130 pounds and she takes Lasix if she is up 3 pounds but she has not needed to do this for a long time. She states she is actually lost weight and is around 125. [facility] <JOHNNA Witt - Last Filed: 04/27/25 19:52> [facility] Medical History CHF (congestive heart failure) Home Medications ?Medication ?Instructions ?Recorded ?Last Taken ?Type levothyroxine 88 mcg tablet 88 mcg PO DAILY thyroid 01/18/18 04/09/25 History labetalol 200 mg tablet 100 mg PO BID Blood pressure 10/16/19 04/09/25 History melatonin 5 mg capsule 5 mg PO QHS Sleep 10/16/19 04/09/25 History clonidine 0.1 mg/24 hr weekly 1 patch transdermal QWEEK 11/06/23 04/09/25 History transdermal patch Hypertension minoxidil 2.5 mg tablet 2.5 mg PO DAILY Hair 04/09/25 Unknown History nitroglycerin 0.4 mg sublingual 0.4 mg sublingual PRN Chest pain 04/09/25 Unknown History tablet biotin 5 mg capsule 5 mg PO DAILY Supplement 04/10/25 Unknown History dapagliflozin propanediol 5 mg 5 mg PO DAILY Heart Failure 04/10/25 Unknown History tablet (Farxiga) ketoconazole 2 % shampoo 1 applic topical .2-3 times weekly 04/10/25 Unknown History Rash apixaban 5 mg tablet (Eliquis) 5 mg PO BID 30 days #60 tabs 04/11/25 Unknown Rx indapamide 2.5 mg tablet 2.5 mg PO DAILY 04/27/25 Unknown History Allergy/AdvReac Type Severity Reaction Status Date / Time iron Allergy Unknown Verified 04/27/25 13:16 pentazocine (From Talwin) Allergy Other Verified 04/27/25 13:16 scopolamine Allergy Other Verified 04/27/25 13:16 amlodipine AdvReac Unknown Significant Verified 04/27/25 13:16 swelling ARB-Angiotensin Receptor AdvReac Unknown BRIGHT/ Verified 04/27/25 13:16 Antagonist Hyperkalemia atorvastatin (From Lipitor) AdvReac Unknown Myalgia Verified 04/27/25 13:16 empagliflozin (From AdvReac Unknown Diarrhea Verified 04/27/25 13:16 Jardiance) hydralazine AdvReac Unknown Intolerance/ Verified 04/27/25 13:16 Nausea hydrochlorothiazide (hctz) AdvReac Unknown Containdication/ Verified 04/27/25 13:16 Hyponatremia losartan AdvReac Unknown BRIGHT with Verified 04/27/25 13:16 elevated potassium and creatinine spironolactone AdvReac Unknown Caused BP Verified 04/27/25 13:16 to go up verapamil AdvReac Unknown GI Upset Verified 04/27/25 13:16 Family History no significant family his Social History Smoking Status: Former smoker EXAM <JOHNNA Witt - Last Filed: 04/27/25 19:52> Physical Exam Const Vital Signs: 04/27/25 13:15 04/27/25 15:15 04/27/25 15:16 Temperature 98 F Temperature Source Oral Pulse Rate 78 89 Pulse Rate [Lying] 64 Pulse Rate [Sitting (for 1 minute prior to obtaining)] 78 Pulse Rate [Standing (for 1 minute prior to obtaining)] 65 Respiratory Rate 16 14 Blood Pressure 147/72 H 139/66 H Blood Pressure [Lying] 186/76 H Blood Pressure [Sitting (for 1 minute prior to obtaining)] 173/78 H Blood Pressure [Standing (for 1 minute prior to obtaining)] 134/70 H Blood Pressure Mean 97 90 Blood Pressure Mean [Lying] 112 Blood Pressure Mean [Sitting (for 1 minute prior to obtaining)] 109 Blood Pressure Mean [Standing (for 1 minute prior to obtaining)] 91 Pulse Ox 95 98 Oxygen Delivery Method Room Air 04/27/25 17:05 04/27/25 17:11 04/27/25 17:12 Temperature Temperature Source Pulse Rate 56 L 58 L 57 L Pulse Rate [Lying] Pulse Rate [Sitting (for 1 minute prior to obtaining)] Pulse Rate [Standing (for 1 minute prior to obtaining)] Respiratory Rate 10 L 9 L 11 L Blood Pressure 180/73 H 186/76 H 173/78 H Blood Pressure [Lying] Blood Pressure [Sitting (for 1 minute prior to obtaining)] Blood Pressure [Standing (for 1 minute prior to obtaining)] Blood Pressure Mean 103 105 106 Blood Pressure Mean [Lying] Blood Pressure Mean [Sitting (for 1 minute prior to obtaining)] Blood Pressure Mean [Standing (for 1 minute prior to obtaining)] Pulse Ox 98 98 98 Oxygen Delivery Method Room Air 04/27/25 17:15 04/27/25 17:30 04/27/25 17:30 Temperature Temperature Source Pulse Rate 74 56 L Pulse Rate [Lying] Pulse Rate [Sitting (for 1 minute prior to obtaining)] Pulse Rate [Standing (for 1 minute prior to obtaining)] Respiratory Rate 14 9 L Blood Pressure 134/70 H 183/68 H 183/68 H Blood Pressure [Lying] Blood Pressure [Sitting (for 1 minute prior to obtaining)] Blood Pressure [Standing (for 1 minute prior to obtaining)] Blood Pressure Mean 88 101 101 Blood Pressure Mean [Lying] Blood Pressure Mean [Sitting (for 1 minute prior to obtaining)] Blood Pressure Mean [Standing (for 1 minute prior to obtaining)] Pulse Ox 97 Oxygen Delivery Method 04/27/25 17:30 04/27/25 17:46 04/27/25 18:00 Temperature Temperature Source Pulse Rate 65 70 Pulse Rate [Lying] Pulse Rate [Sitting (for 1 minute prior to obtaining)] Pulse Rate [Standing (for 1 minute prior to obtaining)] Respiratory Rate 13 20 H Blood Pressure 183/68 H 187/84 H Blood Pressure [Lying] Blood Pressure [Sitting (for 1 minute prior to obtaining)] Blood Pressure [Standing (for 1 minute prior to obtaining)] Blood Pressure Mean 101 112 Blood Pressure Mean [Lying] Blood Pressure Mean [Sitting (for 1 minute prior to obtaining)] Blood Pressure Mean [Standing (for 1 minute prior to obtaining)] Pulse Ox 94 95 Oxygen Delivery Method 04/27/25 18:15 04/27/25 18:36 04/27/25 18:45 Temperature Temperature Source Pulse Rate 63 77 63 Pulse Rate [Lying] Pulse Rate [Sitting (for 1 minute prior to obtaining)] Pulse Rate [Standing (for 1 minute prior to obtaining)] Respiratory Rate 11 L 19 H 11 L Blood Pressure 166/84 H Blood Pressure [Lying] Blood Pressure [Sitting (for 1 minute prior to obtaining)] Blood Pressure [Standing (for 1 minute prior to obtaining)] Blood Pressure Mean 106 Blood Pressure Mean [Lying] Blood Pressure Mean [Sitting (for 1 minute prior to obtaining)] Blood Pressure Mean [Standing (for 1 minute prior to obtaining)] Pulse Ox 96 98 98 Oxygen Delivery Method Room Air 04/27/25 19:00 04/27/25 19:41 Temperature 98 F Temperature Source Pulse Rate 60 63 Pulse Rate [Lying] Pulse Rate [Sitting (for 1 minute prior to obtaining)] Pulse Rate [Standing (for 1 minute prior to obtaining)] Respiratory Rate 10 L 18 Blood Pressure 181/73 H 181/73 H Blood Pressure [Lying] Blood Pressure [Sitting (for 1 minute prior to obtaining)] Blood Pressure [Standing (for 1 minute prior to obtaining)] Blood Pressure Mean 106 109 Blood Pressure Mean [Lying] Blood Pressure Mean [Sitting (for 1 minute prior to obtaining)] Blood Pressure Mean [Standing (for 1 minute prior to obtaining)] Pulse Ox 97 96 Oxygen Delivery Method Room Air <Dr. Keith Cronin MD - Last Filed: 04/27/25 22:23> Physical Exam Const Vital Signs: 04/27/25 13:15 04/27/25 15:15 04/27/25 15:16 Temperature 98 F Temperature Source Oral Pulse Rate 78 89 Pulse Rate [Lying] 64 Pulse Rate [Sitting (for 1 minute prior to obtaining)] 78 Pulse Rate [Standing (for 1 minute prior to obtaining)] 65 Respiratory Rate 16 14 Blood Pressure 147/72 H 139/66 H Blood Pressure [Lying] 186/76 H Blood Pressure [Sitting (for 1 minute prior to obtaining)] 173/78 H Blood Pressure [Standing (for 1 minute prior to obtaining)] 134/70 H Blood Pressure Mean 97 90 Blood Pressure Mean [Lying] 112 Blood Pressure Mean [Sitting (for 1 minute prior to obtaining)] 109 Blood Pressure Mean [Standing (for 1 minute prior to obtaining)] 91 Pulse Ox 95 98 Oxygen Delivery Method Room Air 04/27/25 17:05 04/27/25 17:11 04/27/25 17:12 Temperature Temperature Source Pulse Rate 56 L 58 L 57 L Pulse Rate [Lying] Pulse Rate [Sitting (for 1 minute prior to obtaining)] Pulse Rate [Standing (for 1 minute prior to obtaining)] Respiratory Rate 10 L 9 L 11 L Blood Pressure 180/73 H 186/76 H 173/78 H Blood Pressure [Lying] Blood Pressure [Sitting (for 1 minute prior to obtaining)] Blood Pressure [Standing (for 1 minute prior to obtaining)] Blood Pressure Mean 103 105 106 Blood Pressure Mean [Lying] Blood Pressure Mean [Sitting (for 1 minute prior to obtaining)] Blood Pressure Mean [Standing (for 1 minute prior to obtaining)] Pulse Ox 98 98 98 Oxygen Delivery Method Room Air 04/27/25 17:15 04/27/25 17:30 04/27/25 17:30 Temperature Temperature Source Pulse Rate 74 56 L Pulse Rate [Lying] Pulse Rate [Sitting (for 1 minute prior to obtaining)] Pulse Rate [Standing (for 1 minute prior to obtaining)] Respiratory Rate 14 9 L Blood Pressure 134/70 H 183/68 H 183/68 H Blood Pressure [Lying] Blood Pressure [Sitting (for 1 minute prior to obtaining)] Blood Pressure [Standing (for 1 minute prior to obtaining)] Blood Pressure Mean 88 101 101 Blood Pressure Mean [Lying] Blood Pressure Mean [Sitting (for 1 minute prior to obtaining)] Blood Pressure Mean [Standing (for 1 minute prior to obtaining)] Pulse Ox 97 Oxygen Delivery Method 04/27/25 17:30 04/27/25 17:46 04/27/25 18:00 Temperature Temperature Source Pulse Rate 65 70 Pulse Rate [Lying] Pulse Rate [Sitting (for 1 minute prior to obtaining)] Pulse Rate [Standing (for 1 minute prior to obtaining)] Respiratory Rate 13 20 H Blood Pressure 183/68 H 187/84 H Blood Pressure [Lying] Blood Pressure [Sitting (for 1 minute prior to obtaining)] Blood Pressure [Standing (for 1 minute prior to obtaining)] Blood Pressure Mean 101 112 Blood Pressure Mean [Lying] Blood Pressure Mean [Sitting (for 1 minute prior to obtaining)] Blood Pressure Mean [Standing (for 1 minute prior to obtaining)] Pulse Ox 94 95 Oxygen Delivery Method 04/27/25 18:15 04/27/25 18:36 04/27/25 18:45 Temperature Temperature Source Pulse Rate 63 77 63 Pulse Rate [Lying] Pulse Rate [Sitting (for 1 minute prior to obtaining)] Pulse Rate [Standing (for 1 minute prior to obtaining)] Respiratory Rate 11 L 19 H 11 L Blood Pressure 166/84 H Blood Pressure [Lying] Blood Pressure [Sitting (for 1 minute prior to obtaining)] Blood Pressure [Standing (for 1 minute prior to obtaining)] Blood Pressure Mean 106 Blood Pressure Mean [Lying] Blood Pressure Mean [Sitting (for 1 minute prior to obtaining)] Blood Pressure Mean [Standing (for 1 minute prior to obtaining)] Pulse Ox 96 98 98 Oxygen Delivery Method Room Air 04/27/25 19:00 04/27/25 19:41 Temperature 98 F Temperature Source Pulse Rate 60 63 Pulse Rate [Lying] Pulse Rate [Sitting (for 1 minute prior to obtaining)] Pulse Rate [Standing (for 1 minute prior to obtaining)] Respiratory Rate 10 L 18 Blood Pressure 181/73 H 181/73 H Blood Pressure [Lying] Blood Pressure [Sitting (for 1 minute prior to obtaining)] Blood Pressure [Standing (for 1 minute prior to obtaining)] Blood Pressure Mean 106 109 Blood Pressure Mean [Lying] Blood Pressure Mean [Sitting (for 1 minute prior to obtaining)] Blood Pressure Mean [Standing (for 1 minute prior to obtaining)] Pulse Ox 97 96 Oxygen Delivery Method Room Air [facility] <JOHNNA Witt - Last Filed: 04/27/25 19:52> [facility] Narrative Medical decision making narrative: Differential includes but not limited to pneumonia, ACS, PE 89-year-old female presents with dyspnea on exertion and lightheadedness over the last 2 weeks. No chest pain. She is awake and alert in no distress. Vital signs are stable. She speaking full sentences without distress and is 95% or above on room air. Heart regular. Lungs clear. Abdomen soft and nontender. Overall exam is benign. Orthostatic vital signs were positive so she was given IV fluids. Hemoglobin of 11.4 is chronic. Electrolytes are normal. Renal function is elevated at BUN 44, creatinine 1.78. Previously creatinine was 1.19. This is being treated with IV fluids. EKG is normal sinus rhythm without ischemic changes. Serial troponins are 89 and 84; this is similar to her admission 2 and half weeks ago for an NSTEMI. At that time her cardiac catheterization showed no significant coronary artery disease and they recommended medical management. She does not have chest pain currently and I am not sure why they have not trended down more. CXR is negative. She was 95% on room air but dropped to 85% with ambulation so although she is on Eliquis for DVT, CTA was ordered to rule out anticoagulation failure and a PE. CTA shows no pulmonary embolism and no acute findings. There is a incidental left kidney lesion which we will outpatient follow-up. Since she has ambulatory hypoxia she requires admission. I discussed the case with the hospitalist. External records reviewed 04/09/2025 cardiac Catheterization Nonobstructive coronary arteries, EF 65% I have personally performed a face to face assessment of the patient and have reviewed the RONNIE Note. I performed a substantive portion of the visit including all aspects of the following. My carrasquillo findings include: History is remarkable for patient presenting from physicians office. She informing that she had to sign a piece of paper since that she did not want ambulance transport. Her doctors nurse practitioner Ruby, contacted the emergency department. She was concerned about congestive heart failure pulmonary embolus. Patient is describing dizziness which is described as problems with balance last seconds when she changes position from supine or sitting to standing. She denies double vision, blurred vision loss of vision. Denies being her ears decreased hearing. Denies trouble with speech or swallowing. She denies orthopnea or PND. She denies chest discomfort of any type. She denies black or maroon-colored stool. She denies paresthesia, anesthesia or motor weakness. Initially patient was flustered and stated she needed a CAT scan. She also was unable to tell me what she meant by dizziness. After asking if it meant the room spinning versus her spinning versus lightheaded her response was I am confused. I really do not have a good answer. After reasking the question it was determined that patient has problem with her balance when she goes from a supine or sitting position to a standing position. This last seconds. Exam is unremarkable. She is a pleasant elderly woman. She is in no distress. Her blood pressure is slightly elevated. Head is atraumatic normocephalic. There is no abnormality of the TMs and the external auditory canals are not occluded. Nares patent. Uvula midline. No deviation tongue or protrusion. Neck is supple. There is no carotid bruits. There is no dysmetria. Heel arreola to heel is normal. Motor sensory are intact. Cranials 2 through 12 are intact. Alert and oriented x 3. Medical Decision Making in my opinion patient has paroxysmal benign positional vertigo. Because there was confusion and what she was told by the nurse practitioner slightly larger workup was undertaken that I normally would have ordered. Other additions or changes: [None] Lab Data Labs: Laboratory Results - last 24 hr 04/27/25 04/27/25 15:29 17:34 WBC 4.5 RBC 3.65 L Hgb 11.4 L Hct 34.4 L MCV 94.2 MCH 31.2 MCHC 33.1 RDW Std Deviation 43.3 RDW Coeff of Gabriella 12.5 Plt Count 245 MPV 9.6 Immature Gran % (Auto) 0.200 Neut % (Auto) 49.1 Lymph % (Auto) 32.8 Mcpherson % (Auto) 12.7 H Eos % (Auto) 4.5 Baso % (Auto) 0.7 Absolute Neuts (auto) 2.2 Absolute Lymphs (auto) 1.47 Nucleated RBC % 0 Sodium 140 Potassium 4.3 Chloride 100 Carbon Dioxide 28.2 Anion Gap 12 BUN 44 H Creatinine 1.78 H Estim Creat Clear Calc 20.09 L Est GFR (MDRD) Non-Af 27 L BUN/Creatinine Ratio 24.7 H Glucose 110 H Calcium 10.1 Troponin T High Sens 89 H* D Troponin T Hi Sens 2 Hr 84 H* NT pro BNP II 614 Radiography Diagnostic Testing: Clinical Impression(s) from Imaging Studies Chest X-Ray 04/27/25 15:16 IMPRESSION: No evidence of acute cardiopulmonary disease. Reading Location: [facility] Chest CTA 04/27/25 17:29 IMPRESSION: No pulmonary embolism. Left kidney indeterminate lesion. Further characterization with nonemergent ultrasound is recommended to determine if it is cystic. Chronic and ancillary findings as above. Reading Location: [id number] ED attending interpretation of 2 view chest x-ray shows normal heart size, no acute infiltrate, edema, or effusion. <Dr. Keith Cronin MD - Last Filed: 04/27/25 22:23> [facility] MDM Narrative Medical decision making narrative: Differential includes but not limited to pneumonia, ACS, PE 89-year-old female presents with dyspnea on exertion and lightheadedness over the last 2 weeks. No chest pain. She is awake and alert in no distress. Vital signs are stable. She speaking full sentences without distress and is 95% or above on room air. Heart regular. Lungs clear. Abdomen soft and nontender. Overall exam is benign. Orthostatic vital signs were positive so she was given IV fluids. Hemoglobin of 11.4 is chronic. Electrolytes are normal. Renal function is elevated at BUN 44, creatinine 1.78. Previously creatinine was 1.19. This is being treated with IV fluids. EKG is normal sinus rhythm without ischemic changes. Serial troponins are 89 and 84; this is similar to her admission 2 and half weeks ago for an NSTEMI. At that time her cardiac catheterization showed no significant coronary artery disease and they recommended medical management. She does not have chest pain currently and I am not sure why they have not trended down more. CXR is negative. She was 95% on room air but dropped to 85% with ambulation so although she is on Eliquis for DVT, CTA was ordered to rule out anticoagulation failure and a PE. CTA shows no pulmonary embolism and no acute findings. There is a incidental left kidney lesion which we will outpatient follow-up. Since she has ambulatory hypoxia she requires admission. I discussed the case with the hospitalist. External records reviewed 04/09/2025 cardiac Catheterization Nonobstructive coronary arteries, EF 65% I have personally performed a face to face assessment of the patient and have reviewed the RONNIE Note. I performed a substantive portion of the visit including all aspects of the following. My carrasquillo findings include: History is remarkable for patient presenting from physicians office. She informing that she had to sign a piece of paper since that she did not want ambulance transport. Her doctors nurse practitioner Ruby, contacted the emergency department. She was concerned about congestive heart failure pulmonary embolus. Patient is describing dizziness which is described as problems with balance last seconds when she changes position from supine or sitting to standing. She denies double vision, blurred vision loss of vision. Denies being her ears decreased hearing. Denies trouble with speech or swallowing. She denies orthopnea or PND. She denies chest discomfort of any type. She denies black or maroon-colored stool. She denies paresthesia, anesthesia or motor weakness. Initially patient was flustered and stated she needed a CAT scan. She also was unable to tell me what she meant by dizziness. After asking if it meant the room spinning versus her spinning versus lightheaded her response was I am confused. I really do not have a good answer. After reasking the question it was determined that patient has problem with her balance when she goes from a supine or sitting position to a standing position. This last seconds. Exam is unremarkable. She is a pleasant elderly woman. She is in no distress. Her blood pressure is slightly elevated. Head is atraumatic normocephalic. There is no abnormality of the TMs and the external auditory canals are not occluded. Nares patent. Uvula midline. No deviation tongue or protrusion. Neck is supple. There is no carotid bruits. There is no dysmetria. Heel arreola to heel is normal. Motor sensory are intact. Cranials 2 through 12 are intact. Alert and oriented x 3. Medical Decision Making in my opinion patient has paroxysmal benign positional vertigo. Because there was confusion and what she was told by the nurse practitioner slightly larger workup was undertaken that I normally would have ordered. Other additions or changes: Patient desaturated with ambulation. With unremarkable chest x-ray history of PE even though she is anticoagulant CT of the chest was obtained. CT of the chest reveals no abnormality. She also was orthostatic after fluid boluses. Hospitalist was paged for admission Lab Data Attestation: I reviewed the patient's lab results. Lab results narrative: CBC is remarkable for H&H of 11.4 and 34.4 with normal indices. Electrolyte panel was an elevated BUN/creatinine of 44 and 1.78. BUN/creatinine ratio was approximate 25-1. First troponin is elevated 89. This may be on the way down. BNP was normal. Labs: Laboratory Results - last 24 hr 04/27/25 04/27/25 15:29 17:34 WBC 4.5 RBC 3.65 L Hgb 11.4 L Hct 34.4 L MCV 94.2 MCH 31.2 MCHC 33.1 RDW Std Deviation 43.3 RDW Coeff of Gabriella 12.5 Plt Count 245 MPV 9.6 Immature Gran % (Auto) 0.200 Neut % (Auto) 49.1 Lymph % (Auto) 32.8 Mcpherson % (Auto) 12.7 H Eos % (Auto) 4.5 Baso % (Auto) 0.7 Absolute Neuts (auto) 2.2 Absolute Lymphs (auto) 1.47 Nucleated RBC % 0 Sodium 140 Potassium 4.3 Chloride 100 Carbon Dioxide 28.2 Anion Gap 12 BUN 44 H Creatinine 1.78 H Estim Creat Clear Calc 20.09 L Est GFR (MDRD) Non-Af 27 L BUN/Creatinine Ratio 24.7 H Glucose 110 H Calcium 10.1 Troponin T High Sens 89 H* D Troponin T Hi Sens 2 Hr 84 H* NT pro BNP II 614 Radiography Diagnostic Testing: Clinical Impression(s) from Imaging Studies Chest X-Ray 04/27/25 15:16 IMPRESSION: No evidence of acute cardiopulmonary disease. Reading Location: [facility] Chest CTA 04/27/25 17:29 IMPRESSION: No pulmonary embolism. Left kidney indeterminate lesion. Further characterization with nonemergent ultrasound is recommended to determine if it is cystic. Chronic and ancillary findings as above. Reading Location: [place] [id number] Discharge Plan Dx/Rx/DC Orders Clinical Impression: Hypoxia, Orthostatic hypotension, Elevated troponin, History of non-ST elevation myocardial infarction (NSTEMI), History of deep vein thrombosis (DVT) of lower extremity Disposition Disposition: Acute Care Hospital [facility] Discharge Date/Time: 04/27/25 21:02
[2025-04-27 15:50] LABS: Hematocrit 34.4 % (37-47); Hemoglobin 11.4 g/dL (12.0-15.0); Immature Granulocytes Count 0.010 X10^3/uL (0.0-0.0); Mean Corp Hgb Conc 33.1 g/dL (32-36); Mean Corpuscular Volume 94.2 fL (81-99); Mean Platelet Vol. 9.6 fl (6.2-12.0); NRBC Flagged by Analyzer 0 % (0-5); Platelet Count 245 K/mm3 (150-450); RBC Distribution Width CV 12.5 % (11.6-14.6); RBC Distribution Width SD 43.3 fl (35.1-43.9); Red Blood Count 3.65 M/mm3 (4.2-5.4); White Blood Count 4.5 K/mm3 (4.4-11.0)
[2025-04-27 16:28] LABS: Anion Gap 12 (5-15); BUN 44 mg/dL (4-19); BUN/Creat Ratio 24.7 RATIO (10-20); Calcium,Total 10.1 mg/dL (7.6-11.0); Carbon Dioxide 28.2 mmol/L (21.0-32.0); Chloride 100 mmol/L (98-108); Estimated Creatinine Clearance 20.09 ml/min (50-250); Glucose 110 mg/dL (70-99); Potassium 4.3 mmol/L (3.3-5.1); Pro- Brain NATRIURETIC PEPTIDE 614 pg/mL (<=1800)
--- NOTE | 2025-04-27 17:02 | ED.RN ---
LB CALLED FOR OUTSTANDING TROPONIN. RESPONSE IT MAY STILL BE RUNNING ON SECOND, THEN STATED IT IS 89
[2025-04-27 17:04] LABS: Troponin T High Sensitivity 89 ng/L (<=14)
[2025-04-27] MEDS: 0.9% Normal Saline (1000mL) 1,000 ML 999 ML IV (17:19)
--- NOTE | 2025-04-27 17:29 | CT_ITS ---
PROCEDURE: CTA CHEST W/WO CONTRAST 04/27/2025 REASON FOR EXAM: HYPOXIA WITH AMBULATION, HISTORY OF PE TECHNIQUE: CTA CHEST W/WO CONTRAST Multiplanar Sagittal and Coronal images were obtained. CONTRAST: Isovue 370 VOLUME: 75 mL One or more dose reduction techniques were used (e.g., Automated exposure control, adjustment of the mA and/or kV according to patient size, use of iterative reconstruction technique). RADIATION DOSE SUMMARY: CTDlvol: 4.49+ 3.28 mGy DLP: 115.57 mGycm COMPARISON: 04/11/2025. FINDINGS: The peripheral soft tissues are unremarkable. Degenerative changes of the spine. Normal thyroid. Normal caliber esophagus. Partially visualized left kidney indeterminate lesion. Mild atherosclerosis of a normal caliber thoracic aorta. No mediastinal lymphadenopathy. The heart is normal in size. No pulmonary artery filling defects. Stable sub 6 mm pulmonary nodules. Micronodular opacities within the right middle lobe which are unchanged and likely chronic. CT/CTA Chest W/WO Contrast IMPRESSION: No pulmonary embolism. Left kidney indeterminate lesion. Further characterization with nonemergent ul trasound is recommended to determine if it is cystic. Chronic and ancillary findings as above. Reading Location: [place] [id number]
[2025-04-27 18:48] LABS: Troponin T High Sens 2 HR 84 ng/L (<=14)
--- NOTE | 2025-04-27 19:36 | PCM.HP.STD ---
[facility] - General General Date of Admission: 04/27/25 Date of Service: 04/27/25 Chief Complaint: Dizziness and hypoxia [facility] Narrative ZENAIDA WILKINSON, is a 89 F who presented to [facility] ED on 04/27/2025 with dizziness and hypoxia. Patient was recently hospitalized here from 04/09-04/11 for an NSTEMI. Medical history significant for HFpEF, hypertension, CKD stage IIIb and hypothyroidism. Follows with [facility] cardiology. Left heart cath showed only mild disease in circumflex and RCA and moderate disease up to 50% in the LAD. Echo showed EF 60%, stage I diastolic dysfunction, no other concerning findings. Lower extremity ultrasound did show an acute DVT in the left gastroc and posterior tibial veins, but CTA chest showed no PE. Patient was discharged home on Eliquis 5 mg twice daily at that time; decision was made to not give loading dose given small DVT to minimize risk of bleeding. Patient notes that since returning home she has had intermittent lightheadedness and dizziness with standing. Denies any syncopal events. She is also felt some shortness of breath when walking around the home. She saw her PCP today and her pulse ox was 88%, so they recommended she come in for further evaluation. In the ED she was hypertensive to the 180s systolic and oxygen saturation was 95% on room air but dropped to 85% with exertion. CBC was benign. BMP showed creatinine 1.78 (baseline around 1.1-1.2), BUN 44. Troponin trend 89 > 84 but these were stable from prior values. NT proBNP normal at 614. CTA chest showed no PE, stable small pulmonary nodules and otherwise clear lung bañuelos. Orthostatic vitals were obtained and were positive, with SBP drop from 173 sitting to 134 standing. Given her BRIGHT with orthostatic hypotension and hypoxia with exertion, hospitalist was contacted for admission. I saw the patient at bedside in the ED. She was sitting back comfortably in bed, conversing normally, in no acute distress. She denied any lightheadedness or dizziness at rest. Denied any chest pain or shortness of breath. Noted that she has been taking her home medications as prescribed and her urine output has been slightly decreased over the past few days. She does report drinking lots of fluids recently. She denies any other acute concerns currently. Will be admitted for further management. [facility] Medical History CHF (congestive heart failure) Home Medications ?Medication ?Instructions ?Recorded ?Last Taken ?Type levothyroxine 88 mcg tablet 88 mcg PO DAILY thyroid 01/18/18 04/09/25 History labetalol 200 mg tablet 100 mg PO BID Blood pressure 10/16/19 04/09/25 History melatonin 5 mg capsule 5 mg PO QHS Sleep 10/16/19 04/09/25 History clonidine 0.1 mg/24 hr weekly 1 patch transdermal QWEEK 11/06/23 04/09/25 History transdermal patch Hypertension minoxidil 2.5 mg tablet 2.5 mg PO DAILY Hair 04/09/25 Unknown History nitroglycerin 0.4 mg sublingual 0.4 mg sublingual PRN Chest pain 04/09/25 Unknown History tablet biotin 5 mg capsule 5 mg PO DAILY Supplement 04/10/25 Unknown History dapagliflozin propanediol 5 mg 5 mg PO DAILY Heart Failure 04/10/25 Unknown History tablet (Farxiga) ketoconazole 2 % shampoo 1 applic topical .2-3 times weekly 04/10/25 Unknown History Rash apixaban 5 mg tablet (Eliquis) 5 mg PO BID 30 days #60 tabs 04/11/25 Unknown Rx indapamide 2.5 mg tablet 2.5 mg PO DAILY 04/27/25 Unknown History Allergy/AdvReac Type Severity Reaction Status Date / Time iron Allergy Unknown Verified 04/27/25 13:16 pentazocine (From Talwin) Allergy Other Verified 04/27/25 13:16 scopolamine Allergy Other Verified 04/27/25 13:16 amlodipine AdvReac Unknown Significant Verified 04/27/25 13:16 swelling ARB-Angiotensin Receptor AdvReac Unknown BRIGHT/ Verified 04/27/25 13:16 Antagonist Hyperkalemia atorvastatin (From Lipitor) AdvReac Unknown Myalgia Verified 04/27/25 13:16 empagliflozin (From AdvReac Unknown Diarrhea Verified 04/27/25 13:16 Jardiance) hydralazine AdvReac Unknown Intolerance/ Verified 04/27/25 13:16 Nausea hydrochlorothiazide (hctz) AdvReac Unknown Containdication/ Verified 04/27/25 13:16 Hyponatremia losartan AdvReac Unknown BRIGHT with Verified 04/27/25 13:16 elevated potassium and creatinine spironolactone AdvReac Unknown Caused BP Verified 04/27/25 13:16 to go up verapamil AdvReac Unknown GI Upset Verified 04/27/25 13:16 Family History no significant family his Social History Smoking Status: Former smoker ROS Constitutional Constitutional: Denies chills, fatigue, fever(s) or weakness Eyes Eyes: Denies change in vision Cardiovascular Cardiovascular: Denies chest pain Respiratory/Chest Respiratory/Chest: Denies shortness of breath at rest Gastrointestinal Gastrointestinal: Denies abdominal pain Neurologic Neurologic: Reports dizziness; Denies focal weakness, headache(s), numbness or tingling Vital Signs Vital Signs Vital Signs: 04/27/25 13:15 04/27/25 15:15 04/27/25 15:16 Temperature 98 F Temperature Source Oral Pulse Rate 78 89 Pulse Rate [Lying] 64 Pulse Rate [Sitting (for 1 minute prior to obtaining)] 78 Pulse Rate [Standing (for 1 minute prior to obtaining)] 65 Respiratory Rate 16 14 Blood Pressure 147/72 H 139/66 H Blood Pressure [Lying] 186/76 H Blood Pressure [Sitting (for 1 minute prior to obtaining)] 173/78 H Blood Pressure [Standing (for 1 minute prior to obtaining)] 134/70 H Blood Pressure Mean 97 90 Blood Pressure Mean [Lying] 112 Blood Pressure Mean [Sitting (for 1 minute prior to obtaining)] 109 Blood Pressure Mean [Standing (for 1 minute prior to obtaining)] 91 Pulse Ox 95 98 Oxygen Delivery Method Room Air 04/27/25 17:05 04/27/25 17:11 04/27/25 17:12 Temperature Temperature Source Pulse Rate 56 L 58 L 57 L Pulse Rate [Lying] Pulse Rate [Sitting (for 1 minute prior to obtaining)] Pulse Rate [Standing (for 1 minute prior to obtaining)] Respiratory Rate 10 L 9 L 11 L Blood Pressure 180/73 H 186/76 H 173/78 H Blood Pressure [Lying] Blood Pressure [Sitting (for 1 minute prior to obtaining)] Blood Pressure [Standing (for 1 minute prior to obtaining)] Blood Pressure Mean 103 105 106 Blood Pressure Mean [Lying] Blood Pressure Mean [Sitting (for 1 minute prior to obtaining)] Blood Pressure Mean [Standing (for 1 minute prior to obtaining)] Pulse Ox 98 98 98 Oxygen Delivery Method Room Air 04/27/25 17:15 04/27/25 17:30 04/27/25 17:30 Temperature Temperature Source Pulse Rate 74 56 L Pulse Rate [Lying] Pulse Rate [Sitting (for 1 minute prior to obtaining)] Pulse Rate [Standing (for 1 minute prior to obtaining)] Respiratory Rate 14 9 L Blood Pressure 134/70 H 183/68 H 183/68 H Blood Pressure [Lying] Blood Pressure [Sitting (for 1 minute prior to obtaining)] Blood Pressure [Standing (for 1 minute prior to obtaining)] Blood Pressure Mean 88 101 101 Blood Pressure Mean [Lying] Blood Pressure Mean [Sitting (for 1 minute prior to obtaining)] Blood Pressure Mean [Standing (for 1 minute prior to obtaining)] Pulse Ox 97 Oxygen Delivery Method 04/27/25 17:30 04/27/25 17:46 04/27/25 18:00 Temperature Temperature Source Pulse Rate 65 70 Pulse Rate [Lying] Pulse Rate [Sitting (for 1 minute prior to obtaining)] Pulse Rate [Standing (for 1 minute prior to obtaining)] Respiratory Rate 13 20 H Blood Pressure 183/68 H 187/84 H Blood Pressure [Lying] Blood Pressure [Sitting (for 1 minute prior to obtaining)] Blood Pressure [Standing (for 1 minute prior to obtaining)] Blood Pressure Mean 101 112 Blood Pressure Mean [Lying] Blood Pressure Mean [Sitting (for 1 minute prior to obtaining)] Blood Pressure Mean [Standing (for 1 minute prior to obtaining)] Pulse Ox 94 95 Oxygen Delivery Method 04/27/25 18:15 04/27/25 18:36 04/27/25 18:45 Temperature Temperature Source Pulse Rate 63 77 63 Pulse Rate [Lying] Pulse Rate [Sitting (for 1 minute prior to obtaining)] Pulse Rate [Standing (for 1 minute prior to obtaining)] Respiratory Rate 11 L 19 H 11 L Blood Pressure 166/84 H Blood Pressure [Lying] Blood Pressure [Sitting (for 1 minute prior to obtaining)] Blood Pressure [Standing (for 1 minute prior to obtaining)] Blood Pressure Mean 106 Blood Pressure Mean [Lying] Blood Pressure Mean [Sitting (for 1 minute prior to obtaining)] Blood Pressure Mean [Standing (for 1 minute prior to obtaining)] Pulse Ox 96 98 98 Oxygen Delivery Method Room Air 04/27/25 19:00 Temperature Temperature Source Pulse Rate 60 Pulse Rate [Lying] Pulse Rate [Sitting (for 1 minute prior to obtaining)] Pulse Rate [Standing (for 1 minute prior to obtaining)] Respiratory Rate 10 L Blood Pressure 181/73 H Blood Pressure [Lying] Blood Pressure [Sitting (for 1 minute prior to obtaining)] Blood Pressure [Standing (for 1 minute prior to obtaining)] Blood Pressure Mean 106 Blood Pressure Mean [Lying] Blood Pressure Mean [Sitting (for 1 minute prior to obtaining)] Blood Pressure Mean [Standing (for 1 minute prior to obtaining)] Pulse Ox 97 Oxygen Delivery Method Room Air Weight Weight: 58.258 kg Body Mass Index (BMI) 20.7 Physical Exam Const alert, oriented x3, no apparent distress and average body habitus Constitutional Narrative: Elderly female, thin appearing, mildly fatigued appearing, otherwise sitting back comfortably in bed, conversing normally, in no acute distress. General Appearance: cooperative and comfortable HEENT normocephalic, head/scalp atraumatic, hearing grossly normal bilaterally, nasal mucous membranes and turbinates normal and moist oral mucous membranes Eyes PERRL, EOMs intact bilaterally and conjunctivae normal Neck full ROM Chest inspection of chest normal Resp normal respiratory effort, normal air movement, no use of accessory muscles and clear to auscultation bilaterally Cardio regular rate, regular rhythm, no murmurs and peripheral pulses 2+ throughout GI normal to inspection, nondistended, normoactive bowel sounds, soft to palpation, non-tender and non-distended Back/Spine normal ROM Extremity normal to inspection, full ROM and no pedal edema Skin no rashes or lesions noted Psych mental status grossly normal Results Lab / Micro Data 04/27/25 15:29 04/27/25 15:29 Labs: Laboratory Results - last 24 hr 04/27/25 15:29: WBC 4.5, RBC 3.65 L, Hgb 11.4 L, Hct 34.4 L, MCV 94.2, MCH 31.2, MCHC 33.1, RDW Std Deviation 43.3, RDW Coeff of Gabriella 12.5, Plt Count 245, MPV 9.6, Immature Gran % (Auto) 0.200, Neut % (Auto) 49.1, Lymph % (Auto) 32.8, Luna % (Auto) 12.7 H, Eos % (Auto) 4.5, Baso % (Auto) 0.7, Absolute Neuts (auto) 2.2, Absolute Lymphs (auto) 1.47, Nucleated RBC % 0, Sodium 140, Potassium 4.3, Chloride 100, Carbon Dioxide 28.2, Anion Gap 12, BUN 44 H, Creatinine 1.78 H, Estim Creat Clear Calc 20.09 L, Est GFR (MDRD) Non-Af 27 L, BUN/Creatinine Ratio 24.7 H, Glucose 110 H, Calcium 10.1, Troponin T High Sens 89 H* D, NT pro BNP II 614 04/27/25 17:34: Troponin T Hi Sens 2 Hr 84 H* Imaging Radiology Impression Chest X-Ray 04/27/25 15:16 IMPRESSION: No evidence of acute cardiopulmonary disease. Reading Location: [id number] Chest CTA 04/27/25 17:29 IMPRESSION: No pulmonary embolism. Left kidney indeterminate lesion. Further characterization with nonemergent ultrasound is recommended to determine if it is cystic. Chronic and ancillary findings as above. Reading Location: [id number] Assessment & Plan Assessment/Plan (1) BRIGHT (acute kidney injury): (2) Orthostatic hypotension: (3) Hypoxia: PLAN: Plan Patient is an 89-year-old female who presented [facility] ED on 04/27/2025 with dizziness and hypoxia. 1. BRIGHT on CKD stage IIIb with dehydration and orthostatic hypotension ? Admit under inpatient status to PCU. Creatinine 1.78, BUN 44 on admit. Baseline creatinine 1.1-1.2. Positive orthostatics in the ED with SBP drop from 170s to 130s from sitting to standing with associated lightheadedness. Suspect prerenal BRIGHT secondary to overdiuresis from home indapamide and dapagliflozin. Given 1 L fluid bolus in the ED and will give another 750 cc of IV fluid over several hours this evening. Hold home indapamide and dapagliflozin. 2. Acute hypoxia with exertion ? Oxygen saturation 95% on room air at rest but dropped to 85% on room air on exertion. Unclear etiology. CTA chest with no PE and clear lung bañuelos. Recent echo on 04/10 showed only mild pulmonary hypertension. Good breath sounds bilaterally on exam, no wheezing noted. Will repeat oxygen testing tomorrow morning. 3. Recent LLE DVT ? Ultrasound during hospitalization in late March showed acute DVT in the left gastrocnemius and posterior tibial veins. CTA chest negative for PE. Continue home Eliquis. 4. Chronic HFpEF, hypertension ? Follows with [facility] cardiology. Home regimen of clonidine patch weekly, dapagliflozin, indapamide, and labetalol. Echo on 04/10 showed EF 55%, stage I diastolic dysfunction, otherwise was unremarkable. Appears to be a strange medication regimen but patient does have several allergies listed to other blood pressure medications. Holding indapamide and dapagliflozin as above. Will start nifedipine 60 mg daily and would consider making medication changes on discharge to avoid overdiuresis again. 5. Hypothyroidism ? Continue home Synthroid. DVT prophylaxis: Not indicated, on Eliquis CODE STATUS: Full code, verified Expected disposition: Home, TBD Total clinical time spent by myself addressing the patient's medical issues, reviewing all the data, and collaborating with patient's care team: 75 minutes. Charges/Coding Visit Charges Inpatient E&M: 76431 Init Hosp L3
--- OUTSIDE RECORDS SUMMARY | 2025-04-27 21:02 | XMS RPT_ITS | CCD ---
Author Organization [facility] Care Team Providers Care Creative Services Writer Name Role Phone JAMAL, SCOTTY E Unavailable [...] Primary Care Provider Ruby Hurst PA-C Unavailable Dr. Susannah Clemente MD Primary Care Provider Serge Mcmullen MD Emergency Provider [phone] Godoy DO, Dr. Lainez Admit Provider Unavail able Dr. Migel Godoy DO Attending Provider Unav ailable Godoy DO, Dr. Lainez Other Provider Unavail able Amy SERRANO, Dr. Burnette Other Provider Ruiz TOMAS Dr. Adilson Attending Provider Amy SERRANO, Dr. Burnette Attending Provider Petey SERRANO, Dr. Ramos Attending Provider [phone] Ruiz TOMAS, Dr. De Anda Other Provider SALAY, SUSANNAH M Referring Unavailable SALAY, SUSANNAH M Primary Care Unavailable MICHELE, SANJEEB Attending Unavailabl e MICHELE, SANJEEB Referring Unavailabl e SALAY, SUSANNAH M Primary Care Unavailable MICHELE, SANJEEB Referring Unavailabl e SALAY, SUSANNAH M Primary Care Unavailable ABENA [...] Unavailable SALAY, SUSANNAH M Primary Care Unavailable MICHELLE CHOUDHARY Attending Unavailable SALAY, SUSANNAH M Primary Care Unavailable SALAY, SUSANNAH M Referring Unavailable SALAY, SUSANNAH M Primary Care Unavailable SALAY, SUSANNAH M Attending Unavailable SALAY, SUSANNAH M Primary Care Unavailable SALAY, SUSANNAH M Primary Care Unavailable ERWIN ROSALES Attending Unavailabl e SALAY, SUSANNAH M Primary Care Unavailable SALAY, SUSANNAH M Attending Unavailable SALAY, SUSANNAH M Primary Care Unavailable SALAY, SUSANNAH M Referring Unavailable SALAY, SUSANNAH M Primary Care Unavailable Salay, Susannah Primary Care Unavailable Adilson Melchor Attending Unavailable Migel Godoy Admitting Unavailable Vasile Reyes Consulting Unavailable Migel Godoy Consulting Unavailable Adilson Melchor Consulting Unavailable Migel Godoy Admitting Unavailable Salay, Susannah Primary Care Unavailable Adilson Melchor Attending Unavailable Vasile Reyes Consulting Unavailable Migel Godoy Consulting Unavailable Richard Angelo Attending Unavailable Salay, Susannah Primary Care Unavailable Salay, Susannah Primary Care Unavailable Vasile Reyes Attending Unavailable Migel Godoy Attending Unavailable Allergies Allergy Classification Reported Allergen(s) Allergy Type Date of Onset Reaction(s) Facility amLODIPine (1 source) amLODIPine Drug Allergy 020 Other: See Comments [facility] Work Phone: Angiotensin 2 Receptor Blockers (ARB) (1 source) Losartan Drug Allergy 020 Other: See Comments [facility] Anticholinergics (1 source) Scopolamine Drug Allergy 012 Mental Status Change [facility] Work Phone: Calcium Channel Blockers (1 source) Verapamil Drug Allergy 016 GI Upset [facility] empagliflozin (1 source) empagliflozin Drug Allergy 023 Diarrhea [facility] Work Phone: HMG-CoA Reductase Inhibitors (statins) (1 source) atorvastatin Drug Allergy 020 Myalgia [facility] hydrALAZINE (1 source) hydrALAZINE Drug Allergy 020 Intolerance [facility] Iron (1 source) Iron Drug Allergy 005 GI Upset [facility] Pentazocine (1 source) Pentazocine Drug Allergy 009 Mental Status Change [facility] Spironolactone (1 source) Spironolactone Drug Allergy 020 Intolerance [facility] (20 sources) iron; Translations: [IRON] Drug Allergy [address] [facility] Repository (20 sources) pentazocine; Translations: [PENTAZOCINE LACTATE] Drug Allergy [address] [facility] Repository (20 sources) scopolamine; Translations: [SCOPOLAMINE] Drug Allergy [address] [facility] Rep[facility] (20 sources) verapamil; Translations: [VERAPAMIL HCL] Drug Allergy 016 GI Upset [facility] Other [place] [facility] (20 sources) amLODIPine; Translations: [AMLODIPINE] Drug Allergy Other: See Comments [facility] Work Phone: (20 sources) atorvastatin; Translations: [ATORVASTATIN] Drug Allergy 020 Myalgia [facility] Work Phone: (20 sources) hydrALAZINE; Translations: [HYDRALAZINE] Drug Allergy Intolerance [facility] (20 sources) Losartan; Translations: [LOSARTAN] Drug Allergy Other: See Comments [facility] Work Phone: (20 sources) Spironolactone; Translations: [SPIRONOLACTONE] Drug Allergy Intolerance [facility] Work Phone: (19 sources) Thiazides; Translations: [THIAZIDES] Drug Intolerance 020 Contraindicati on-Medical Surgical [facility] Work Phone: (20 sources) Thiazides Drug Intolerance 020 Contraindicati on-Medical Surgical [facility] Work Phone: (20 sources) empagliflozin; Translations: [EMPAGLIFLOZIN] Drug Allergy 023 Diarrhea [facility] Work Phone: (3 sources) Pentazocine Drug Allergy Other [facility] (20 sources) Angiotensin II receptor antagonist; Translations: [ARB-ANGIOTENSIN RECEPTOR ANTAGONIST] Propensity to adverse reactions to drug Contraindicati on-Medical Surgical [facility] Work Phone: (8 sources) Thiazides Drug Int[facility] hydroCHLOROthiazide Drug Allergy 025 Containdicatio n/ Hyponatremia [facility] (1 source) Verapamil Drug Allergy 025 GI Upset [facility] (1 source) ARB-Angiotensin Receptor Antagonist Propensity to adverse reactions 025 BRIGHT/ Hyperkalemia [facility] (1 source) amLODIPine Drug Allergy [facility] Repository (1 source) atorvastatin Drug Allergy [facility] Repository (1 source) empagliflozin Drug Allergy [facility] Repository (1 source) hydrALAZINE Drug Allergy [facility] Repository (1 source) hydroCHLOROthiazide Drug Allergy [facility] Repository (1 source) Losartan Drug Allergy [facility] Repository (1 source) Pentazocine Drug Allergy [facility] Repository (1 source) Spironolactone Drug Allergy [facility] Repository (1 source) Verapamil Drug Allergy [facility] Repository (1 source) ARB-Angiotensin Receptor Antagonist Drug allergy (disorder) [facility] Repository Medications Current Medications Medication Drug Class(es) Dates Sig (Normalized) Sig (Original) amLODIPine 5 mg oral tablet (5 sources) Dihydropyridine Calcium Channel Cecilia Start: 10-18-2019 take 1 tablet by mouth once daily Amlodipine 5 MG tablet Active 5 mg PO DAILY October 18, 2019 1:00am Start: 01-28-2018 End: 02-02-2018 take 1 tablet by mouth once daily Amlodipine 5 MG tablet Discontinued 5 mg PO DAILY January 28, 2018 12:00am February 02, 2018 2:18pm apixaban 5 mg oral tablet (5 sources) Factor Xa Inhibitor Start: 04-11-2025 take 1 tablet by mouth twice daily ELIQUIS 5 mg tab(s) Take 5 mg by mouth two times a day. 04/11/2025 Active biotin 5 mg oral capsule (20 sources) Start: 04-10-2025 take 1 capsule by mouth once daily Biotin 5 mg capsule Active 5 mg PO DAILY April 10, 2025 12:00am Start: 10-16-2019 End: 10-18-2019 Biotin Discontinued 1 [...] 5 mg by mouth o nce daily. cephalexin 500 mg oral capsule (7 sources) Cephalosporin Antibacterial Start: End: take 1 capsule by mouth twice daily [...] Comment on above: Take [address] [facility] twice daily for 7 days. 168 hr cloNIDine 0.45898 mg/hr transdermal system (20 sources) Central alpha-2 Adrenergic Agonist Start: 01-08-2025 End: 03-27-2025 cloNIDine TTS (CATAPRES-TTS) 0.1 mg/24 hr Indications: Essential hypertension Apply 1 patch as directed one time a week. 12 patch 2 03/27/2025 Active Start: 11-06-2023 Clonidine 0.1 mg/24 hr patch weekly Active 1 NMA TD EVERY WEEK November 06, 2023 1:00am Start: 11-06-2023 Clonidine 0.1 mg/24 hr patch [...] rosalinda th twice daily for 10 days. indapamide 1.25 mg oral tablet (20 sources) [...] with radiology test) Indications: Epigastric pain MRI PANC/ALBERTO Inject, intravenously, once for 1 dose. No [...] be provide d with radiology test) MRI PANC/ALBERTO Inject, intravenously, once for 1 dose. No [...] 08/04/2023 08/05/2023 Active Comment on above: MRI PANC/ALBERTO Inject, intravenously, once for 1 dose. No [...] medicated shampoo (20 sources) Azole Antifungal Start: 04-10-2025 Ketoconazole 2 % shampoo Active 1 NMA TOPICAL .2-3 times weekly April 10, 2025 12:00am Start: 11-01-2020 End: 07-26-2024 ketoconazole (NIZORAL) 2 % s hampoo Indications: Telogen effluvium , Seborrheic dermatitis Use to wash face and scalp two times a week. Lather and leave in for 3-5 minutes before rinsing. 240 mL 11 07/26/2024 Active Comment on above: Use to wash face and scalp two times a week. Lather and leave in for 3-5 minutes before rinsing. labetalol hydrochloride 200 mg oral tablet (20 sources) beta-Adrenergic Cecilia Start: End: 5 take 1 tablet by mouth twice daily [...] mg oral tablet (20 sources) l-Thyroxine Start: 01-19-20 End: 08-07-20 take 1 tablet by mouth once daily levothyroxine (SYNTHROID) 88 mcg tablet Indications: Hypothyroidism, unspecified type Take 1 tablet by mouth once daily. 90 tablet 1 02/08/2025 08/07/2025 Active Comment on above: Take 1 tablet by rosalinda once daily. melatonin 5 mg oral capsule (20 sources) Start: 10-16-20 take 1 capsule by mouth at bedtime Melatonin 5 MG capsule Active 5 mg PO AT BEDTIME October 16, 2019 1:00am Comment on above: Take 1 capsule by [facility] at bedtime as needed. minoxidil 2.5 mg oral tablet (20 sources) Arteriolar Vasodilator Start: 07-24-20 End: 01-10-20 minoxidil (LONITEN) 2.5 mg tablet Indications: Telogen [...] once daily. nitroglycerin 0.4 mg sublingual tablet (14 sources) Nitrate Vasodilator Start: 03-27-2025 nitroglycerin sublingual (NITROQUICK) 0.4 mg SL tablet Indications: Atherosclerosis of [place] coronary artery of [place] heart without angina pectoris Dissolve 1 tablet under the tongue as needed for chest pain. If no pain relief call 911. 25 tablet 1 03/27/2025 Active Completed/Discontinued Medications Medication Drug Class(es) Dates Sig (Normalized) Sig (Original) acetaminophen 500 mg oral tablet (3 sources) Start: 01-21-2018 End: 04-10-2025 take 2 tablets by mouth every eight hours Acetaminophen 500 MG tablet Discontinued 1000 mg PO EVERY 8 HOURS January 21, 2018 12:00am April 10, 2025 12:19am Start: 01-21-2018 take 1000 mg by mout h every eight hours Acetaminophen Active 1000 MG PO EVERY 8 HOURS January 20, 2018 11:00pm acetaminophen 325 mg / HYDROcodone bitartrate 5 mg oral tablet (3 sources) Opioid Agonist Start: 01-11-2018 End: 01-14-2018 Hydrocodone-Acetaminophen 1 TABLET tablet Discontinued 1 {tbl} PO [...] aspirin 81 mg delayed release oral tablet (16 sources) Platelet Aggregation Inhibitor, Nonsteroidal Anti-inflammatory Drug Start: 10-26-2019 End: 05-14-2022 take 1 tablet by mouth once daily aspirin, enteric coated (ECOTRIN LOW STRENGTH) 81 mg EC tablet Indications: Iron deficiency anemia secondary to inadequate dietary iron intake Take 1 tablet by mouth once daily. 10/26/2019 05/14/2022 Discontinued Start: 01-18-2018 End: 04-11-2025 take 1 tablet by mouth once daily Aspirin 81 MG tablet,chewable Discontinued 81 mg PO DAILY@0800 January 18, 2018 12:00am April 11, 2025 12:15pm Comment on above: Take 1 tablet by rosalinda th once daily. atenolol 25 mg oral tablet (3 sources) beta-Adrenergic Cecilia Start: 01-22-20 End: 01-29-20 take 1 tablet by mouth at bedtime [...] thasone sodium phosphate 3 mg injection (CELESTONE) budesonide 3 mg delayed release oral capsule (6 sources) Corticosteroid Start: 10-16-2019 End: 10-18-2019 Budesonide 3 MG capsule,delayed,extend.release Discontinued 1 NMA THREE TIMES A DAY October 16, 2019 1:00am October 18, 2019 1:49pm Start: 10-16-2019 End: 04-10-2025 Budesonide 3 MG capsule,kelsey yed,extend.release Discontinued 1 NMA PO THREE TIMES A DAY 0 October 18, 2019 1:49pm April 10, 2025 12:39am canagliflozin 100 mg oral tablet (12 sources) [...] tablet by rosalinda th daily with breakfast. cholecalciferol 0.025 mg oral capsule (20 sources) Vitamin D Start: 10-16-20 End: 04-10-20 take 1 capsule by mouth once daily Cholecalciferol (Vitamin D3) 25 MCG capsule Discontinued 25 ug PO DAILY October 16, 2019 1:00am April 10, 2025 7:50pm End: 06-26-2024 take 1 capsule by mouth once daily Cholecalciferol, Vitamin D3, 50 mcg (2,000 unit) cap Take 1 capsule by mouth once daily. 06/26/2024 Discontinued (Course of therapy completed) Comment on above: Take 1 capsule by [facility] once daily. colchicine 0.6 mg oral tablet (1 source) [...] on above: Take 1 tablet by rosalinda at bedtime as needed for up to [...] Supplemt, Lactose-Reduced (Ensure Enlive) 120 ML Liquid (3 sources) Start: 01-21-2018 End: 01-28-2018 take 1 [...] 20, 2018 11:00pm January 28, 2018 3:43pm furosemide 20 mg oral tablet (20 sources) Loop Diuretic Start: 11-06-2023 End: 04-10-2025 Furosemide 20 mg tablet Discontinued 20 mg PO .COMPLEX November 06, 2023 1:00am April 10, 2025 7:50pm 20 mg orally Wednesday, Wednesday, Wednesday; Start: 11-06-2023 Furosemide Act nhan MG November [...] Wednesday,Wednesday,Wednesday (0600). gabapentin 100 mg oral capsule (3 sources) Anti-epileptic Agent Start: 2018 End: 2024 take 2 capsules by mouth at bedtime Gabapentin 100 MG capsule Discontinued 200 mg PO AT BEDTIME October 16, 2019 1:00am April 10, 2025 12:38am Start: 10-16-2019 take 200 mg by mouth at bedtim e Gabapentin Active 200 MG PO AT BEDTIME October 16, 2019 12:00am Gatorade Sports Drink (1 source) Start: 06-21-2020 End: 07-30-2020 Gatorade Sports Drink Indications: Colon cancer screening Use as directed for Miralax / Gatorade Bowel Prep Kit 64 oz 06/21/2020 07/30/2020 Discontinued (Discontinued by Patient) hydrALAZINE hydrochloride 50 mg oral tablet (3 sources) Arteriolar Vasodilator Start: 01-28-2018 End: 02-02-2018 take 1 tablet by mouth three times daily Hydralazine 50 MG tablet Discontinued 50 mg PO THREE TIMES A DAY 90 January 28, 2018 12:00am February 02, 2018 2:18pm hydroCHLOROthiazide 25 mg oral tablet (9 sources) Thiazide Diuretic Start: 10-16-2019 End: 04-10-2025 Hydrochlorothiazide 25 MG tablet Discontinued 12.5 mg PO DAILY October 16, 2019 1:31am Melissa 24th, 2025 12:38am Start: 10-16-2019 take 12.5 mg by mout h once daily Hydrochlorothiazide Active 12.5 MG PO DAILY October 16, 2019 12:31am Start: 01-18-2018 End: 10-16-2019 take 1 tablet by mouth once daily Hydrochlorothiazide 25 MG tablet Discontinued 25 mg PO DAILY January 28, 2018 4:43pm October 16, 2019 1:31am 10 ml lidocaine hydrochloride 10 mg/ml injection (1 source) Antiarrhythmic, Amide Local Anesthetic Start: 11-24-2022 End: 11-24-2022 lidocaine (PF) 10 mg/mL (1 %) 0.5 mL injection (XYLOCAINE) Start: 11-24-2022 End: 11-24-2022 lidocaine (PF) 10 mg/mL (1 % ) 0.5 mL injection (XYLOCAINE) Lmefol [id number] (CEREFOLIN NAC, ALGAL OIL,) 6 mg-600 mg- 2 mg-90.314 mg tab (19 sources) Start: 02-18-2021 End: 09-02-2022 take 1 tablet by mouth once daily Lmefol [id number]-algal (CEREFOLIN NAC, ALGAL OIL,) 6 mg-600 mg- 2 mg-90.314 mg tab Indications: 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 90 tablet 4 02/18/2021 09/02/2022 Discontinued Start: 02-18-2021 take 1 tablet by rosalinda th once daily Lmefol [id number] (CEREFOLIN NAC, ALGAL OIL,) 6 mg-600 mg- 2 mg-90.314 mg tab Indications: 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 90 tablet 4 02/18/2021 Active Comment on above: Take 1 tablet by rosalinda th once daily. OLANZapine (1 source) Atypical Antipsychotic Start: 04-11-20 End: 04-11-20 olanzapine Discontinued .ROUTE as needed for nausea April 11, 2025 12:00am April 11, 2025 12:15pm ondansetron 4 mg disintegrating oral tablet (20 sources) Serotonin-3 Receptor Antagonist Start: 11-06-19 End: 04-11-20 take 1 tablet by mouth every eight hours as needed for nausea Ondansetron 4 mg tablet,disintegratin g Discontinued 4 mg PO EVERY 8 HOURS NEEDED as needed for Nausea November 06, 2023 1:00am April 11, 2025 10:55am Start: 07-16-2020 End: 09-19-2020 take 1 tablet [...] 10 mL injection (DEFINITY) polyethylene glycol 3350 38748 mg powder for oral solution (1 source) Osmotic Laxative Start: 0 End: 0 polyethylene glycol 3350 (MIRALAX, GLYCOLAX) 17 gram/dose powder Indications: Colon cancer screening Use as directed for Miralax / Gatorade Bowel Prep Kit 238 g 06/21/2020 07/30/2020 Discontinued (Discontinued by Patient) polyethylene glycol 3350 620133 mg / potassium chloride 2970 mg / sodium bicarbonate 6740 mg / sodium chloride 5860 mg / sodium sulfate 34153 mg powder for oral solution (1 source) [...] (1 source) Phenothiazine Start: 06-19-20 End: 07-30-20 20 take 1 tablet by mouth every six hours as needed for nausea and nausea promethazine (PHENERGAN) 12.5 mg tablet Indications: Nausea Take 1 tablet by mouth every 6 hours as needed for Nausea/Vomiting. 30 tablet 06/19/2020 07/30/2020 Discontinued (Discontinued by Patient) 125 ml sodium chloride 9 mg/ml prefilled syringe (20 sources) Start: 11-20-19 23 End: 02-19-20 24 sodium chloride 0.9 % (flush) 10 mL (BD POSIFLUSH) temazepam 7.5 mg oral capsule (3 sources) Benzodiazepine Start: 03-08-20 23 End: 04-07-20 23 take 1 capsule by mouth every 30 days at bedtime as needed temazepam (RESTORIL) 7.5 mg capsule Indications: Acute right-sided thoracic back pain Take 1 capsule by mouth at bedtime as needed for up to 30 days. Do not take with tramadol. 12 capsule 0 03/08/2023 04/07/2023 Comment on above: Take 1 capsule by mo [facility] at bedtime as needed for up to 30 days. Do not take with tramadol. traMADol hydrochloride 50 mg oral tablet (4 sources) Opioid Agonist Start: 03-08-20 23 End: 03-23-20 23 take 1 tablet by mouth twice daily [...] NEEDED as needed for Mod-Severe Pain () 24 January 21, 2018 12:00am January 28, 2018 4:43pm Start: 01-21-2018 End: 01-28-2018 take 100 mg by mouth every six hours as needed Tramadol Discontinued 100 MG PO EVERY 6 HOURS NEEDED 24 January 20, 2018 11:00pm January 28, 2018 3:43pm Comment on above: Take 1 tablet by [facility] twice daily as needed for pain for up to 15 days. Do not take with temazepam. valsartan 160 mg oral tablet (9 sources) Angiotensin 2 Receptor Cecilia Start: 9 End: 5 take 1 tablet by mouth once daily Valsartan 160 MG tablet Discontinued 160 mg PO DAILY October 16, 2019 1:31am April 10, 2025 12:39am Start: 01-28-2018 End: 10-16-2019 take 1 tablet by mouth twice daily Valsartan 160 MG tablet Discontinued 160 mg PO TWICE A DAY 60 January 28, 2018 12:00am October 16, 2019 1:31am Start: 01-18-2018 End: 01-28-2018 take 1 tablet by mouth once daily Valsartan 80 MG tablet Discontinued 80 mg PO DAILY January 18, 2018 12:00am January 28, 2018 4:43pm Problems Active Problems Problem Classification Problem Date Documented Da te Episodic/Chronic Abdominal pain (10 sources) Tenderness of epigastrium; Translations: [Epigastric abdominal tenderness] Onset: 5 Episodic Acute myocardial infarction (5 sources) Myocardial infarction; Translations: [Non-ST elevation (NSTEMI) myocardial infarction] Onset: 5 04-10-2025 Chronic Adjustment disorders (3 sources) Reactive depression (situational); [...] 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 Conditions associated with dizziness or vertigo (3 sources) Dizziness; Translations: [Dizziness and giddiness] Onset: 5 04-17-2025 Episodic Congestive heart failure; nonhypertensive (20 sources) Chronic diastolic heart failure; Translations: [Chronic diastolic (congestive) heart failure] Onset: 0 11-26-2021 Chronic Coronary atherosclerosis and other heart disease (20 sources) Coronary atherosclerosis; Translations: [Atherosclerotic heart disease of [place] coronary artery without angina pectoris] Onset: 3 [...] (HCC)] Onset: 4 Disorders of lipid metabolism (3 sources) Hyperlipidemia; Translations: [Hyperlipidemia, unspecified] 02-02-2018 Chronic Essential hypertension (20 sources) Essential (primary) hypertension; Translations: [Essential hypertension] Onset: 7 04-03-2021 Chronic Fracture of neck of femur (hip) (3 sources) Fracture of bone of hip region; [...] atrophic vaginitis] 09-10-2015 Chronic Nausea and vomiting (5 sources) Nausea; Translations: [Nausea] Onset: 5 11-06-2023 Episodic Noninfectious gastroenteritis (20 sources) Collagenous [...] [Other forms of dyspnea] 01-15-2023 Episodic Other lower respiratory disease (3 sources) Multiple nodules of lung; Translations: [Other nonspecific abnormal finding of lung field] 04-17-2025 Episodic Other lower respiratory disease (2 sources) Other nonspecific abnormal finding of lung field; Translations: [Pulmonary nodules] Onset: 5 Episodic Other lower respiratory disease (1 source) Hypoxia; Translations: [Hypoxemia] 04-27-2025 Episodic Other nervous system disorders (20 sources) Disorder of brain; Translations: [Encephalopathy, unspecified] Onset: 0 12-22-2019 Chronic Other non-traumatic joint disorders (3 sources) Hip pain; Translations: [Pain in right hip] 02-02-2018 Episodic Other non-traumatic joint disorders (1 source) Pain of left wrist; Translations: [Pain in left wrist] 12-24-2020 Episodic Other upper respiratory disease (3 sources) Allergic rhinitis; Translations: [Allergic rhinitis, unspecified] 02-02-2018 Chronic Other upper respiratory infections (1 source) Pharyngitis; Translations: [Acute pharyngitis, unspecified] Episodic Pancreatic disorders (not diabetes) (5 sources) Cyst of pancreas; Translations: [Cyst of pancreas] Onset: 5 01-29-2024 Episodic Phlebitis; thrombophlebitis and thromboembolism (3 sources) Acute deep venous thrombosis of calf; Translations: [Acute embolism and thrombosis of left calf muscular vein] 04-17-2025 Episodic Retinal detachments; defects; vascular occlusion; and [...] Onset: 7 Unclassified (1 source) NO SHOW Unclassified (1 source) appointment with Ruby Levy Unclassified (1 source) Acute embolism and thrombosis of left calf muscular vein; Translations: [Acute deep vein thrombosis (DVT) of calf muscle vein of left lower extremity (HCC)] Onset: 5 Unclassified (1 source) Demand ischemia (HCC); Translations: [Demand ischemia (HCC)] Onset: 5 Urinary tract infections (1 source) Acute cystitis; Translations: [Acute cystitis without hematuria] 07-03-2024 Episodic Viral infection (4 sources) Verruca vulgaris; Translations: [Viral wart, unspecified] [...] ectomy and radiation. Cardiac dysrhythmias (20 sources) Palpitations; Translations: [Palpitations] [...] to thrive] Onset: 1 04-03-2021 Episodic Other screening for suspected conditions (not mental disorders or infectious disease) (20 sources) Inconclusive mammography finding; Translations: [Inconclusive mammogram] Onset: 8 Resolved: 8 Episodic Other skin disorders (20 sources) Telogen [...] Test Name Value Interpretation Reference Range Facility [facility] 04-17-2025 CNOV Office Visit ([facility] ) ZENAIDA EVANS ([id number]) 1935 F Date Time Provider Department 04/17/25 3:50 PM SUSANNAH CLEMENTE During your visit today, we recorded the following information about you: Temperature Pulse Blood pressure Weight 98 degrees 68/minute 132/72 58.6 kg Susannah Clemente MD 04/17/2025 5:07 PM Signed Transitional Care Management Progress Note The patients TCM visit was performed within the 7 days of discharge. Patient's Date of discharge: 04/11 Date of initial coordinator contact after discharge: 04/12 Discharge diagnosis: demand ischemia Medication review completed Yes Susannah Clemente MD Provider Documentation: In follow-up of hospitalization, Zenaida Evans is a 89 year old female with the chief complaint of chest pain. I have reviewed the patient?s last hospital course including diagnostic testing performed during this hospitalization, their discharge medications, and my assessment and plan with the patient and any family members present at today?s visit. CTA 04/11 showed no PE. 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 Patient/authorized sales representative leather goods agreed to proceed HPI Zenaida Evans is a 89-year-old female with a history of HTN, hypothyroidism, and recent DVT, presenting for follow-up after a recent hospitalization for chest pressure and elevated troponin levels with her dtr Isa. Zenaida was admitted to the hospital from April 09 to April 11 for increasing chest pressure, nausea, and mild dyspnea over 5 days, with symptoms intensifying in the 24 hours prior to admission. She denies fever, chills, or increased swelling during this period. Initial troponin level was 95, which trended downward during hospitalization. BNP was elevated at 828, WBC count was 5.7, hemoglobin was 12.4, and platelet count was 216. A chest X-ray showed no acute findings, and a CT angiogram of the chest on April 11 revealed no pulmonary embolism but multiple small pulmonary nodules of unclear significance. A cardiac catheterization demonstrated mild disease, estimated at about 30% stenosis. Zenaida was diagnosed with demand ischemia and a DVT in the left lower mid-calf. She was started on Eliquis 5 mg BID for 3 months for the DVT. Since starting Eliquis, she reports intermittent dizziness and a slight feeling of nausea, particularly a couple of hours after taking the morning dose. She denies chest tightness and notes that these symptoms are different from those that led to her ER visit. She is also on levothyroxine, aspirin, labetalol, vitamin D, melatonin, clonidine, furosemide as needed, indapamide, ondansetron, minoxidil, nitroglycerin as needed, and Farxiga 5 mg daily. She reduced the Farxiga dose from 10 mg to 5 mg due to lightheadedness when standing. Zenaida has not taken nitroglycerin since discharge. Two days ago, she experienced a syncopal episode after taking nitroglycerin for high blood pressure (190/90 mmHg) with her dtr present; her blood pressure dropped to 105/60 mmHg, and she nearly fainted. She denies feeling faint during the episode. She reports increased stress due to her own health issues and concerns about her daughter, who is doing well. She is also in the process of arranging in-home support for her , which she finds stressful. She has a low frustration tolerance and feels overwhelmed by the demands on her. She has not yet followed up with her regional sales associate, Dr. Bautista, since her discharge, but has been advised to. No problem-specific Assessment AND Plan notes found for this encounter. Constitutional: (-) fever Cardiovascular: (-) chest tightness Gastrointestinal: (+) nausea Neurological: (+) dizziness, (-) syncope BP 132/72 Pulse 68 Temp 36.7 ?C (98 ?F) (Oral) Wt 58.6 kg (129 lb 3 oz) SpO2 95% BMI 20.54 kg/m? General: No acute distress. CV: No carotid bruits, regular rhythm. Resp: Lungs clear to auscultation bilaterally. MSK/Ext: No edema. Labs: See scanned documents - Troponin: 95 (trending downward, noted as consistent with demand ischemia) - BNP: 828 (slightly high) - WBC: 5.7 - Hemoglobin: 12.4 - Platelets: 216 - D-dimer: 1 (elevated) - eGFR: 32 Imaging: (04/11) CT Angiography Chest: No pulmonary embolism. Multiple small pulmonary nodules of unclear significance. - Chest X-ray: No acute findings. - Lower Extremity Ultrasound: Deep vein thrombosis in the left lower mid-calf. Tests: - Cardiac Catheterization: Mild coronary artery disease with approximately 1. I have reviewed the patient record including associated test results during the last hospitalization Yes 2. I have reviewed Lab test Yes 3. I have reviewed Radiology te (more content not included)... Normal [facility] CNPNon 04-17-2025 CNPN Telephone (INTMBR) ZENAIDA EVANS ([id number]) 1935 F Date Time Provider Department 04/17/25 SUSANNAH CLEMENTE INTM[facility] During your visit today, we recorded the following information about you: Susannah Clemente MD 04/17/2025 5:01 PM Signed Recommend referral to cardiac rehab at [facility]. Please call [phone] Referral in my outbox. Please inform patient once they have referral. Tara Orona MA 04/17/2025 5:53 PM Signed Faxed order to [facility] at [facility] at [phone] Left detailed message on patient's voicemail. Allergies As of Date: 04/17/2025 Noted Allergy Reaction SCOPOLAMINE 10/30/2011 1 - [...] - GI Upset Comments: constipation Date Reviewed: 04/17/2025 Reviewed by: Susannah Clemente MD - Fully Assessed Prescriptions as of 04/17/2025 - ELIQUIS 5 mg tab(s) Take 5 mg by mouth two times a day. - ondansetron (ZOFRAN) 4 mg tablet Take by mouth every 8 hours as needed for nausea/vomiting. - indapamide (LOZOL) 2.5 mg tablet Take [...] of 10/05/2022: Problem List As Of Date 04/17/2025 Noted Resolved Hypertensive heart and chronic kidney [...] 09/19/2020 Personal history of malignant neoplasm of br (more content not included)... Normal [facility] Basic Metabolic Profile (BMP )on 04-12-2025 BUN Normal 4-19 [facility] Comment on above: Result Comment: Canc elled via OM: Order cancelled - Patient discharged Performed By: #### L 500.2500 #### [facility] [address] [place], [address] BUN/CRE Normal 10-20 [facility] Comment on above: Result Comment: Canc elled via OM: Order cancelled - Patient discharged Performed By: #### L 500.2500 #### [facility] [address] [place], [address] Calcium Normal 7.6-11.0 [facility] Comment on above: Result Comment: Canc elled via OM: Order cancelled - Patient discharged Performed By: #### L 500.2500 #### [facility] [address] [place], [address] CL Normal 98-108 [facility] Comment on above: Result Comment: Canc elled via OM: Order cancelled - Patient discharged Performed By: #### L 500.2500 #### [facility] [address] [place], [address] CO2 Normal 21.0-32.0 [facility] Comment on above: Result Comment: Canc elled via OM: Order cancelled - Patient discharged Performed By: #### L 500.2500 #### [facility] [address] [place], [address] CREAT,SERUM Normal 0.70-1.20 [facility] Comment on above: Result Comment: Canc elled via OM: Order cancelled - Patient discharged Performed By: #### L 500.2500 #### [facility] [address] [place], [address] eGFR Normal >60 [facility] Comment on above: Result Comment: Canc elled via OM: Order cancelled - Patient discharged Performed By: #### L 500.2500 #### [facility] [address] [place], [address] GAP Normal 5-15 [facility] Comment on above: Result Comment: Canc elled via OM: Order cancelled - Patient discharged Performed By: #### L 500.2500 #### [facility] [address] [place], [address] GLU Normal 70-99 [facility] Comment on above: Result Comment: Canc elled via OM: Order cancelled - Patient discharged Performed By: #### L 500.2500 #### [facility] [address] [place], [address] Potassium Normal 3.3-5.1 [facility] Comment on above: Result Comment: Canc elled via OM: Order cancelled - Patient discharged Performed By: #### L 500.2500 #### [facility] [address] [place], [address] Basic Metabolic Profile (BMP) Normal 133-145 [facility] Comment on above: Result Comment: Canc elled via OM: Order cancelled - Patient discharged Performed By: #### L 500.2500 #### [facility] [address] [place], [address] [facility] [place] [facility] Telephone ([facility]) CRISTINAZENAIDA ([id number]) 1935 F Date Time Provider Department 04/12/25 SUSANNAH CLEMENTE INTM[facility] During your visit today, we recorded the following information about you: Susannah Clemente MD 04/12/2025 8:06 AM Signed Patient was discharged from [facility] yesterday. Admitted 04/09-04/11 with non stemi. Please contact and assist in scheduling [facility] hospital follow up within 2 wks of discharge. I can do vv on 04/23 or in person in the morning. Abena Peraza, RN 04/12/2025 8:25 AM Signed Pt scheduled 04/23/25 11am. Susannah Clemente MD 04/12/2025 9:38 AM Signed Please complete documentation for tcm. Abena Peraza RN 04/12/2025 10:40 AM Signed See tcm encounter Allergies As of Date: 04/12/2025 Noted Allergy Reaction SCOPOLAMINE 10/30/2011 1 - [...] MA - Fully Assessed Reason for Visit: Appointment [186] Prescriptions as of 04/12/2025 - indapamide (LOZOL) 2.5 mg tablet Take [...] of 10/05/2022: Problem List As Of Date 04/12/2025 Noted Resolved Hypertensive heart and chronic kidney [...] joint [M25.60] 12/02/2011 09/19/2020 Personal history of ma (more content not included)... Normal [facility] Anion gap in Serum or Plasma Ordered By: Adilson Melchor on 04-11-2025 Anion gap [Moles/Vol] 11 mmol/L 5-15 [facility] BUN/creatinine ratioOrdered By: Adilson Melchor on 04-11-2025 Urea nitrogen/Creatinine [Mass ratio] 20.8 mg/mg High 10-20 [facility] Basic Metabolic Profile (BMP )on 04-11-2025 BUN/CRE 20.8 RATIO High -20 [facility] Comment on above: Performed By: #### L 100.0500, L500.2500 ####[facility] [address] [place], [address] Calcium [Mass/Vol] 9.2 mg/dL Normal 7.6-11.0 [facility] Comment on above: Performed By: #### L 100.0500, L500.2500 ####[facility] [address] [place], [address] Chloride [Moles/Vol] 105 mmol/L Normal 98-108 [facility] Comment on above: Performed By: #### L 100.0500, L500.2500 ####[facility] [address] [place], [address] CO2 [Moles/Vol] 24.1 mmol/L Normal 21.0-32.0 [facility] Comment on above: Performed By: #### L 100.0500, L500.2500 ####[facility] [address] [place], [address] Creatinine [Mass/Vol] 1.19 mg/dL Normal 0.70-1.20 [facility] Comment on above: Performed By: #### L 100.0500, L500.2500 ####[facility] [address] [place], [address] ECRCL 29.71 ml/min Low 50-250 [facility] Comment on above: Performed By: #### L 100.0500, L500.2500 ####[facility] [address] [place], [address] GAP 11 Normal 5-15 [facility] Comment on above: Performed By: #### L 100.0500, L500.2500 ####[facility] [address] [place], [address] GFR/1.73 sq M.predicted among non-blacks MDRD (S/P/Bld) [Vol rate/Area] 44 mL/min/{1.73_m2} Low >60 [facility] Comment on above: Result Comment: mL/m in/1.73m2 CKD-EPI Creatinine Equation (2020) Performed By: #### L 100.0500, L500.2500 ####[facility] [address] [place], [address] Glucose [Mass/Vol] 84 mg/dL Normal 70-99 [facility] Comment on above: Performed By: #### L 100.0500, L500.2500 ####[facility] [address] [place], [address] Potassium [Moles/Vol] 4.3 mmol/L Normal 3.3-5.1 [facility] Comment on above: Performed By: #### L 100.0500, L500.2500 ####[facility] [address] [place], [address] Sodium [Moles/Vol] 140 mmol/L Normal 133-145 [facility] Comment on above: Performed By: #### L 100.0500, L500.2500 ####[facility] [address] [place], [address] Urea nitrogen [Mass/Vol] 25 mg/dL High 4-19 [facility] Comment on above: Performed By: #### L 100.0500, L500.2500 ####[facility] [address] [place], [address] CBC-Complete Blood Cnt No Di ffon 04-11-2025 Erythrocyte distribution width (RBC) [Ratio] 12.7 % Normal 11.6-14.6 [facility] Comment on above: Performed By: #### L 100.0500, L500.2500 ####[facility] [address] [place], [address] Hematocrit (Bld) [Volume fraction] 33.4 % Low 37-47 [facility] Comment on above: Performed By: #### L 100.0500, L500.2500 ####[facility] [address] [place], [address] Hemoglobin (Bld) [Mass/Vol] 11.3 g/dL Low 12.0-15.0 [facility] Comment on above: Performed By: #### L 100.0500, L500.2500 ####[facility] [address] [place], [address] MCH (RBC) [Entitic mass] 31.5 pg Normal 27.0-32.0 [facility] Comment on above: Performed By: #### L 100.0500, L500.2500 ####[facility] [address] [place], [address] MCHC (RBC) [Mass/Vol] 33.8 g/dL Normal 32-36 [facility] Comment on above: Performed By: #### L 100.0500, L500.2500 ####[facility] [address] [place], [address] MCV (RBC) [Entitic vol] 93.0 fL Normal 81-99 [facility] Comment on above: Performed By: #### L 100.0500, L500.2500 ####[facility] [address] [place], [address] Platelet mean volume (Bld) [Entitic vol] 9.7 fL Normal 6.2-12.0 [facility] Comment on above: Performed By: #### L 100.0500, L500.2500 ####[facility] [address] [place], [address] Platelets (Bld) [#/Vol] 210 10*3/uL Normal 150-450 [facility] Comment on above: Performed By: #### L 100.0500, L500.2500 ####[facility] [address] [place], [address] RBC (Bld) [#/Vol] 3.59 10*6/uL Low 4.2-5.4 [facility] Comment on above: Performed By: #### L 100.0500, L500.2500 ####[facility] [address] [place], [address] RDW SD 43.1 fl Normal 35.1-43.9 [facility] Comment on above: Performed By: #### L 100.0500, L500.2500 ####[facility] [address] [place], [address] WBC (Bld) [#/Vol] 4.9 10*3/uL Normal 4.4-11.0 [facility] Comment on above: Performed By: #### L 100.0500, L500.2500 ####[facility] [address] [place], [address] CTA Chest W/WO Contraston CTA Chest W/WO Contrast [facility] Imaging Services [address] [place] [address] CTA Chest W/WO Contrast MR#: [id number] Acct: [id number] Name: ZENAIDA EVNAS Rep #: [id number] : 1935 F 89 From: Iván Garcia MD PCP: Dr. Susannah Clemente MD Status: ADM IN Study: CTA Chest W/WO Contrast Date of Exam: 04/11/25 Exam# [id number] Ordering Dr: Adilson Melchor DO PROCEDURE: CTA CHEST W/WO CONTRAST 04/11/2025 REASON FOR EXAM: ACUTE DVT, EVAL FOR PE TECHNIQUE: CTA CHEST W/WO CONTRAST Multiplanar Sagittal and Coronal images were obtained. CONTRAST: 54 cc Isovue 370 One or more dose reduction techniques were used (e.g., Automated exposure control, adjustment of the mA and/or kV according to patient size, use of iterative reconstruction technique). RADIATION DOSE SUMMARY: DLP: 110.03 mGycm COMPARISON: April 09, 2025 chest x-ray FINDINGS: Hardware: None Lymph nodes: There is no pathologic adenopathy by size criteria. Heart: Intact Atherosclerotic calcifications are visible. RV/LV Diameter Ratio: 0.8 Thoracic Aorta: Intact Pulmonary Vessels: Main pulmonary artery Hounsfield units = 693. There is no visible pulmonary embolus. Lungs and Airways: Scar is noted at the apices. There is a 0.5 cm solid pulmonary nodule in the right upper lung, image 223/240.. There is a 0.6 cm solid pulmonary nodule in the right upper lung, image 223/240. There is a 0.4 cm solid peripheral pulmonary nodule in the right upper lung, image 204/240. There is a 0.4 cm solid pulmonary nodule in the right midlung, image 107/240. There are tree-in-bud nodular densities in the right middle lobe. There is a 0.6 cm solid nodular density in the left lingular segment, image 61/240. There is a 1.0 x 0.7 irregular solid density in the left upper lung, image 209/240. Pleura: Nodular pleural thickening is present in the right and left. Upper Abdomen: There is a 0.3 cm nonobstructing stone partly visible in the left kidney. Bones: There is no acute bony abnormality. CT/CTA Chest W/WO Contrast IMPRESSION: There is no visible pulmonary embolus. There is a 0.5 cm solid pulmonary nodule in the right upper lung, image 223/240.. There is a 0.6 cm solid pulmonary nodule in the right upper lung, image 223/240. There is a 0.4 cm solid peripheral pulmonary nodule in the right upper lung, image 204/240. There is a 0.4 cm solid pulmonary nodule in the right midlung, image 107/240. There are tree-in-bud nodular densities in the right middle lobe. There is a 0.6 cm solid nodular density in the left lingular segment, image 61/240. There is a 1.0 x 0.7 irregular solid density in the left upper lung, image 209/240. follow-up is recommended per Fleischner criteria. There is a 0.3 cm nonobstructing stone partly visible in the left kidney. Reading Location: [facility] CC: Dr. Adilson Melchor, DO; Dr. Susannah Clemente MD [employer] Restorer: Signed Normal [facility] Carbon dioxide, total [Moles /volume] in Central venous bloodOrdered By: Adilson Melchor on 04-11-2025 CO2 [Moles/Vol] 24.1 mmol/L 21.0-32.0 [facility] Chloride assayOrdered By: Bishop Melchor on 04-11-2025 Chloride [Moles/Vol] 105 mmol/L 98-108 [facility] Erythrocyte distribution wid th ratioOrdered By: Adilson Melchor on 04-11-2025 Erythrocyte distribution width (RBC) [Ratio] 12.7 % 11.6-14.6 [facility] Erythrocyte distribution wid th standard deviationOrdered By: Adilson Melchor on 04-11-2025 Erythrocyte distribution width (RBC) [Ratio] 43.1 fl 35.1-43.9 [facility] Glomerular filtration rate ( GFR) estimation/1.73 sq m using serum, plasma, or whole bOrdered By: Adilson Melchor on 04-11-2025 GFR/1.73 sq M.predicted among non-blacks MDRD (S/P/Bld) [Vol rate/Area] 44 mL/min/{1.73_m2} Low >60 [facility] Comment on above: mL/min/1.73m2 CKD-EP I Creatinine Equation (2020) Hematocrit Auto (Bld) [Volum e fraction]Ordered By: Adilson Melchor on 04-11-2025 Hematocrit (Bld) [Volume fraction] 33.4 % Low 37-47 [facility] Hemoglobin measurementOrdere d By: Adilson Melchor on 04-11-2025 Hemoglobin (Bld) [Mass/Vol] 11.3 g/dL Low 12.0-15.0 [facility] MCV (mean corpuscular volume ) determinationOrdered By: Adilson Melchor on 04-11-2025 MCV (RBC) [Entitic vol] 93.0 fL 81-99 [facility] Mean corpuscular hemoglobin (MCH) determinationOrdered By: Adilson Melchor on 04-11-2025 MCH (RBC) [Entitic mass] 31.5 pg 27.0-32.0 [facility] Mean corpuscular hemoglobin concentration (MCHC) determinationOrdered By: Adilson Melchor on 04-11-2025 MCHC (RBC) [Mass/Vol] 33.8 g/dL 32-36 [facility] Mean platelet volume determi nationOrdered By: Adilson Melchor on 04-11-2025 Platelet mean volume (Bld) [Entitic vol] 9.7 fL 6.2-12.0 [facility] Platelet countOrdered By: Bishop Melchor on 04-11-2025 Platelets (Bld) [#/Vol] 210 10*3/uL 150-450 [facility] Potassium measurement (mass/ volume)Ordered By: Adilson Melchor on 04-11-2025 Potassium (Unsp spec) [Mass/Vol] 4.3 mmol/L 3.3-5.1 [facility] RBC Auto (Bld) [#/Vol]Ordere d By: Adilson Melchor on 04-11-2025 RBC (Bld) [#/Vol] 3.59 10*6/uL Low 4.2-5.4 [facility] Serum creatinine measurement (mass/volume)Ordered By: Adilson Melchor on 04-11-2025 Creatinine [Mass/Vol] 1.19 mg/dL 0.70-1.20 [facility] Serum glucose measurement (m ass/volume)Ordered By: Adilson Melchor on 04-11-2025 Glucose [Mass/Vol] 84 mg/dL 70-99 [facility] Serum or plasma calcium ashley urement (mass/volume)Ordered By: Adilson Melchor on 04-11-2025 Calcium [Mass/Vol] 9.2 mg/dL 7.6-11.0 [facility] Serum or plasma urea nitroge n measurement (mass/volume)Ordered By: Adilson Melchor on 04-11-2025 Urea nitrogen [Mass/Vol] 25 mg/dL High 4-19 [facility] Sodium levelOrdered By: Serge Melchor on 04-11-2025 Sodium [Moles/Vol] 140 mmol/L 133-145 [facility] White blood cell (WBC) count Ordered By: Adilson Melchor on 04-11-2025 WBC (Bld) [#/Vol] 4.9 10*3/uL 4.4-11.0 [facility] Activated partial thrombopla stin time (aPTT) in platelet poor plasma by coagulation aOrdered By: Migel Lazaro on 04-10-2025 aPTT Coag (PPP) [Time] 180.0 s High 24.1-36.2 [facility] Comment on above: CRITICAL VALUE SILVERMAN D TO LPRADCPBVP50/24/25 0453 Saurabh Singer.RESULTS READ BACK BY SAME. Bilirubin, totalOrdered By: Migel Lazaro on 04-10-2025 Bilirubin [Mass/Vol] 0.54 mg/dL 0.00-1.30 [facility] CBC-Complete Blood Cnt No Di ffon 04-10-2025 Erythrocyte distribution width (RBC) [Ratio] 12.6 % Normal 11.6-14.6 [facility] Comment on above: Performed By: #### L 300.8000, L100.0500, L500.4100, L501.9520, L500.4050 #### [facility] [address] [place], [place], [id number] (540) Hematocrit (Bld) [Volume fraction] 34.1 % Low 37-47 [facility] Comment on above: Performed By: #### L 300.8000, L100.0500, L500.4100, L501.9520, L500.4050 #### [facility] [address] [place], [address] Hemoglobin (Bld) [Mass/Vol] 11.6 g/dL Low 12.0-15.0 [facility] Comment on above: Performed By: #### L 300.8000, L100.0500, L500.4100, L501.9520, L500.4050 #### [facility] [address] [place], [address] MCH (RBC) [Entitic mass] 31.2 pg Normal 27.0-32.0 [facility] Comment on above: Performed By: #### L 300.8000, L100.0500, L500.4100, L501.9520, L500.4050 #### [facility] [address] [place], [address] MCHC (RBC) [Mass/Vol] 34.0 g/dL Normal 32-36 [facility] Comment on above: Performed By: #### L 300.8000, L100.0500, L500.4100, L501.9520, L500.4050 #### [facility] [address] [place], [address] MCV (RBC) [Entitic vol] 91.7 fL Normal 81-99 [facility] Comment on above: Performed By: #### L 300.8000, L100.0500, L500.4100, L501.9520, L500.4050 #### [facility] [address] [place], [address] Platelet mean volume (Bld) [Entitic vol] 9.5 fL Normal 6.2-12.0 [facility] Comment on above: Performed By: #### L 300.8000, L100.0500, L500.4100, L501.9520, L500.4050 #### [facility] [address] [place], [address] Platelets (Bld) [#/Vol] 195 10*3/uL Normal 150-450 [facility] Comment on above: Performed By: #### L 300.8000, L100.0500, L500.4100, L501.9520, L500.4050 #### [facility] [address] [place], [address] RBC (Bld) [#/Vol] 3.72 10*6/uL Low 4.2-5.4 [facility] Comment on above: Performed By: #### L 300.8000, L100.0500, L500.4100, L501.9520, L500.4050 #### [facility] [address] [place], [address] RDW SD 42.3 fl Normal 35.1-43.9 [facility] Comment on above: Performed By: #### L 300.8000, L100.0500, L500.4100, L501.9520, L500.4050 #### [facility] [address] [place], [address] WBC (Bld) [#/Vol] 5.6 10*3/uL Normal 4.4-11.0 [facility] Comment on above: Performed By: #### L 300.8000, L100.0500, L500.4100, L501.9520, L500.4050 #### [facility] [address] [place], [address] CNPNon 04-10-2025 CNPN Telephone (CARD CHF GEOFFREY) ZENAIDA EVANS ([id number]) 1935 F Date Time Provider Department 04/10/25 PAUL BAUTISTA CARD CHF GEOFFREY During your visit today, we recorded the following information about you: Joann Honeycutt 04/10/2025 8:20 AM Addendum April 10, 2025 Name: Zenaida Evans Patient Contact Number: [phone] (home) [phone] (cell) Date of last office visit: 04/03/2025 Reason For Call: Chest pain/angina - Patient was taken to the ED overnight to [facility]. They believe she has had a heart attack based on the elevated enzymes. They want to do a cardiac cath today, but the patient wants to see if Dr. Bautista thinks she should be moved to [facility]. Zenaida Evans can be reached at [phone]. Physician: Paul Bautista MD Patient was informed that non-urgent calls may be returned within the next three business days. Yes Joann Honeycutt [facility] STAFF PHYSICIAN NOTE OF PERSONAL INVOLVEMENT IN CARE Discussed with patient. Went into ER with chest pain and nausea. HS trop to 95 and then decreased to 86. Discussed reasonable to ask for transfer to [facility] if bed can be available as soon as possible. If it will take > 36 hours, would perform LHC there to understand the anatomy and if there is a culprit lesion. Currently pain and nausea free admitted to local hospital. STAFF PHYSICIAN: Paul Bautista MD Allergies As of Date: 04/10/2025 Noted Allergy Reaction SCOPOLAMINE 10/30/2011 1 - [...] MA - Fully Assessed Reason for Visit: Counseling [29] Cmt: Patient was taken to the ED overnight. Has had what they think is a heart attack. They want to do a cardiac cath. 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 Normal [facility] Calculated very low density lipoprotein (VLDL) cholesterol measurementOrdered By: Migel Lazaro on 04-10-2025 Calculated very low density lipoprotein (VLDL) cholesterol measurement 11 mg/dL 5-40 [facility] Comprehensive Metabolic Prof ilon 04-10-2025 Albumin [Mass/Vol] 3.8 g/dL Normal 3.4-4.8 [facility] Comment on above: Performed By: #### L 300.8000, L100.0500, L500.4100, L501.9520, L500.4050 #### [facility] [address] [place], [address] Albumin/Globulin [Mass ratio] 1.6 {ratio} Normal 0.9-2.4 [facility] Comment on above: Performed By: #### L 300.8000, L100.0500, L500.4100, L501.9520, L500.4050 #### [facility] [address] [place], [address] ALK PHOS 69 U/L Normal 35-104 [facility] Comment on above: Performed By: #### L 300.8000, L100.0500, L500.4100, L501.9520, L500.4050 #### [facility] [address] [place], [address] ALT [Catalytic activity/Vol] 22 U/L Normal <=34 [facility] Comment on above: Performed By: #### L 300.8000, L100.0500, L500.4100, L501.9520, L500.4050 #### [facility] [address] [place], [address] AST [Catalytic activity/Vol] 19 U/L Normal <=31 [facility] Comment on above: Performed By: #### L 300.8000, L100.0500, L500.4100, L501.9520, L500.4050 #### [facility] [address] [place], [address] Bilirubin [Mass/Vol] 0.54 mg/dL Normal 0.00-1.30 [facility] Comment on above: Performed By: #### L 300.8000, L100.0500, L500.4100, L501.9520, L500.4050 #### [facility] [address] [place], [address] BUN/CRE 20.9 RATIO High 10-20 [facility] Comment on above: Performed By: #### L 300.8000, L100.0500, L500.4100, L501.9520, L500.4050 #### [facility] [address] [place], [address] Calcium [Mass/Vol] 9.4 mg/dL Normal 7.6-11.0 [facility] Comment on above: Performed By: #### L 300.8000, L100.0500, L500.4100, L501.9520, L500.4050 #### [facility] [address] [place], [address] Chloride [Moles/Vol] 103 mmol/L Normal 98-108 [facility] Comment on above: Performed By: #### L 300.8000, L100.0500, L500.4100, L501.9520, L500.4050 #### [facility] [address] [place], [address] CO2 [Moles/Vol] 26.8 mmol/L Normal 21.0-32.0 [facility] Comment on above: Performed By: #### L 300.8000, L100.0500, L500.4100, L501.9520, L500.4050 #### [facility] [address] [place], [address] Creatinine [Mass/Vol] 1.31 mg/dL High 0.70-1.20 [facility] Comment on above: Performed By: #### L 300.8000, L100.0500, L500.4100, L501.9520, L500.4050 #### [facility] [address] [place], [address] ECRCL 26.99 ml/min Low 50-250 [facility] Comment on above: Performed By: #### L 300.8000, L100.0500, L500.4100, L501.9520, L500.4050 #### [facility] [address] [place], [address] GAP 10 Normal 5-15 [facility] Comment on above: Performed By: #### L 300.8000, L100.0500, L500.4100, L501.9520, L500.4050 #### [facility] [address] [place], [address] GFR/1.73 sq M.predicted among non-blacks MDRD (S/P/Bld) [Vol rate/Area] 39 mL/min/{1.73_m2} Low >60 [facility] Comment on above: Result Comment: mL/m in/1.73m2 CKD-EPI Creatinine Equation (2020) Performed By: #### L 300.8000, L100.0500, L500.4100, L501.9520, L500.4050 #### [facility] [address] [place], [address] Globulin (S) [Mass/Vol] 2.5 g/dL Normal 2.2-4.2 [facility] Comment on above: Performed By: #### L 300.8000, L100.0500, L500.4100, L501.9520, L500.4050 #### [facility] [address] [place], [address] Glucose [Mass/Vol] 106 mg/dL High 70-99 [facility] Comment on above: Performed By: #### L 300.8000, L100.0500, L500.4100, L501.9520, L500.4050 #### [facility] [address] [place], [address] Potassium [Moles/Vol] 4.2 mmol/L Normal 3.3-5.1 [facility] Comment on above: Performed By: #### L 300.8000, L100.0500, L500.4100, L501.9520, L500.4050 #### [facility] [address] [place], [address] Sodium [Moles/Vol] 139 mmol/L Normal 133-145 [facility] Comment on above: Performed By: #### L 300.8000, L100.0500, L500.4100, L501.9520, L500.4050 #### [facility] [address] [place], [address] T PROT 6.3 g/dL Normal 5.9-8.4 [facility] Comment on above: Performed By: #### L 300.8000, L100.0500, L500.4100, L501.9520, L500.4050 #### [facility] [address] [place], [address] Urea nitrogen [Mass/Vol] 27 mg/dL High 4-19 [facility] Comment on above: Performed By: #### L 300.8000, L100.0500, L500.4100, L501.9520, L500.4050 #### [facility] [address] [place], [address] Consultation - Cardiologyon 04-10-2025 Consultation - Cardiology [facility] Medical Records Department [address] [place] [address] Consultation - Cardiology 04/10/25 0728 MR#: [id number] Acct: [id number] Name: ZENAIDA EVANS Rep #: [id number] : 1935 89 From: Vasile Reyes MD PCP: Dr. Susannah Clemente MD Status:ADM IN Location: [place] [address] Assessment Plan Assessment/Plan (1) NSTEMI (non-ST elevated myocardial infarction): PLAN: Patient presents with chest discomfort and a non-ST elevation myocardial infarction coupled with nausea. My recommendation at this time would be to consider a left heart catheterization. Risk benefits alternatives have and explained to her and she wants to talk to her regional sales associate in [place] before proceeding. In the meantime she will remain on the current medical therapy together with the heparin. (2) Chronic diastolic CHF (congestive heart failure): PLAN: She had a previous echocardiogram which demonstrated preserved left ventricular ejection fraction as per the notes. I am not sure when this was undertaken. Will repeat just to make sure there are no wall motion abnormalities and also to avoid doing an left ventriculogram because of her elevated creatinine. (3) HTN (hypertension): PLAN: She does have evidence of hypertension and the plan to be to continue her current medications with the labetalol as well as the clonidine. She is also on indapamide in the meantime this will be continued. 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 Ejection fraction was noted to be preserved on the echocardiogram. Based on the above findings I would recommend aggressive medical therapy. Patient can follow-up with her regional sales associate in [place]. HPI Consult Data Date of Consult: 04/10/25 HPI Narrative HPI Narrative: ZENAIDA EVANS, is a 89 F who presents to the emergency room with nausea and abdominal pain as well as chest discomfort. She had previously seen her regional sales associate in [place] about a week ago with similar findings and actually at that time had also complained of some chest discomfort. It appears from his notes that he had considered proceeding with a left heart catheterization or stress testing and they elected to perform the latter. However before she could be scheduled patient started having more symptoms with discomfort as noted above. The discomfort was worse with exertion and goes away with rest. In the emergency room she was evaluated by the EKG did not demonstrate any significant abnormalities but cardiac enzymes were abnormal and cardiology was called for further evaluation and management. She is currently pain-free. [facility] Medical History CHF (congestive heart failure) Home Medications ???Medication ???Instructions ???Recorded ???Last Taken ???Type aspirin 81 mg chewable tablet 81 mg PO DAILY@0800 heart 01/18/18 Unknown History levothyroxine 88 mcg tablet 88 mcg PO DAILY thyroid 01/18/18 0 04/09/25 History cholecalciferol (vitamin D3) 25 25 mcg PO DAILY Supplement 9 04/09/25 History mcg (1,000 unit) capsule labetalol 200 mg tablet 100 mg PO BID Blood pressure 10/1604/09/25 History melatonin 5 mg capsule 5 mg PO QHS Sleep 10/16/19 5 History clonidine 0.1 mg/24 hr weekly 1 patch transdermal QWEEK 11/06/23 04/09/25 History transdermal patch Hypertension furosemide 20 mg tablet 20 mg PO .COMPLEX Diuretic 4 04/09/25 History ondansetron 4 mg disintegrating 4 mg PO Q8H PRN PRN Nausea #10 tab s 11/06/23 Unknown Rx tablet indapamide 1.25 mg tablet 1.25 mg PO DAILY Vlood pressure 04/09/25 History minoxidil 2.5 mg tablet 2.5 mg PO DAILY Hair 04/09/25 Unkn own History nitroglycerin 0.4 mg sublingual 0.4 mg sublingual PRN Chest pain 0 04/09/25 Unknown History tablet Allergy/AdvReac Type Severity Reaction Status Date / Time iron Allergy Unknown Verified 04/09/25 18:49 pentazocine (From [place]) Allergy Other Verified 04/09/25 18:49 scopolamine Allergy Other Verified 04/09/25 18:49 Family History no significant family his Social History Smoking Status: Former smoker ROS Constitutional Constitutional: Denies fever(s) or weight loss Eyes Eyes: Reports systems reviewed and no addt'l complaints, except as documented ENT HEENT: Reports systems reviewed and no addt'l complaints, except as documented Cardiovascular Cardiovascular: Reports chest pain with activity, dyspnea at rest and dyspnea on exertion; Denies chest pain at rest, edema, palpitations or paroxysmal nocturnal dyspnea Re (more content not included)... Normal [facility] D-Dimer Quantitative (DVT/PE )on 04-10-2025 D-DIMER QUANT 1.00 FEU/ug/m Invalid Interpretation Code 0.27-0.49 [facility] Comment on above: Result Comment: D-Di cindy ELEVATED (>0.49): Additional studies and clinical assessments are indicated to conclude diagnosis of: Deep Vein Thrombosis (DVT) or Pulmonary Embolism (PE) CRITICAL VALUE CALLED TO JILLIAN 04/10/25 0506 Saurabh Singer. RESULTS READ BACK BY SAME. Performed By: #### L 300.8000, L100.0500, L500.4100, L501.9520, L500.4050 #### [facility] [address] [place], [place], [address] Discharge Instructionon 03-19 Discharge Instruction [facility] Medical Records Department [address] [place] [address] Instructions for Home/Discharge Instructions 04/10/25 1439 MR#: [id number] Acct: [id number] Name: ZENAIDA EVANS Rep #: [id number] : 1935 89 From: Adilson Melchor DO PCP: Dr. Susannah Clemente MD Status:ADM IN Discharge Instructions DC O2, CPAP, BIPAP needs Home O2 Discharge instructions: No Follow Up Care Test Results: Test results from this visit will be discussed in further detail at your follow-up appointment, if applicable. Discharge Plan Admission Admit Date/Time: 04/09/25 23:42 Primary Reason for Your Visit: Chest pain Attending Provider: Adilson Melchor Primary Care Provider: Susannah Clemente Consulting Providers: Vasile Reyes; Migel Godoy Instructions Additional Instructions / Restrictions: Continue home medications as normal. Follow-up with your [facility] regional sales associate in the near future. Discharge Orders/Prescriptions Prescriptions: Continued levothyroxine 88 MCG tablet 88 mcg PO DAILY aspirin 81 MG tablet,chewable 81 mg PO DAILY@0800 labetalol 200 MG tablet 100 mg PO BID cholecalciferol (vitamin D3) 25 MCG capsule 25 mcg PO DAILY melatonin 5 MG capsule 5 mg PO QHS clonidine 0.1 mg/24 hr patch weekly 1 patch transdermal QWEEK Patient Comments: Apply 1 patch topically one time a week as directed furosemide 20 mg tablet 20 mg PO .COMPLEX Patient Comments: TAKE 1 TABLET BY MOUTH EVERY WEDNESDAY,WEDNESDAY,WEDNESDAY (0600). Rx Instructions: 20 mg orally Wednesday, Wednesday, Wednesday; ondansetron 4 mg tablet,disintegrating 4 mg PO Q8H PRN PRN (Reason: Nausea) Qty: 10 0RF minoxidil 2.5 mg tablet 2.5 mg PO DAILY indapamide 1.25 mg tablet 1.25 mg PO DAILY nitroglycerin 0.4 mg tablet, sublingual 0.4 mg sublingual PRN Referrals / Follow Up: Susannah Clemente MD [Primary Care Provider] - Disposition Disposition (needs filled in before D/C Order can be placed): Home, Self Care 04/10/25 1500 Adilson Melchor DO CC: Dr. Vasile Reyes MD; Dr. Migel Godoy DO; Dr. Susannah Clemente MD Signed Normal [facility] Echo Completeon 04-10-2025 Echo Complete [facility] [place] [address] [place] [address] Echo Complete 04/10/25 0938 MR#: [id number] Acct: [id number] Name: ZENAIDA EVANS Rep #: [id number] : 1935 89 From: Vasile Reyes MD Attending Dr: Dr. Adilson Melchor DO Status : ADM IN Ordering Dr: Migel Godoy DO Date: 04/10/25 Location: [facility] Sex: F C Admitted: 04/09/25 Reason For Study : Chest pain Procedure This was a 2D Doppler, Color Flow transthoracic echocardiogram. Myocardial strain analysis was performed in this exam to aid in the assessment of cardiac function. Exam performed portable in patient room. Left Ventricle Normal LV size. Apical noncompaction noted. The left ventricular ejection fraction is 60 %. Stage 1 diastolic dysfunction. No regional wall motion abnormalities noted. Right Ventricle Normal RV size. Normal systolic function. Atria Normal left atrium. Normal right atrium. Mitral Valve There is mild to moderate mitral annular calcification. Mild (1+) eccentric mitral valve insufficiency. Tricuspid Valve Normal tricuspid valve. Mild (1+) tricuspid valve insufficiency. Pulmonary artery systolic pressure is 38 mmHg. Aortic Valve Trisinus/trileaflet aortic valve. Mild (1+) aortic valve insufficiency. Pulmonic Valve Normal pulmonic valve. Great Vessels Normal aortic root. The pulmonary artery is normal size. Inferior vena cava collapse with respiration. Pericardium/Pleural No pericardial effusion. MMode/2D Measurements Calculations LVIDd: 3.4 cm IVSd: 0.95 cm Ao root diam: 3.0 cm LVIDs: 2.1 cm LVPWd: 0.88 cm RVDd: 3.2 cm FS: 38.0 % LAV(MOD-bp): 34.2 ml LVAd ap4: 22.4 cm2 LVAd ap2: 21.7 cm2 LAV(MOD-bp) Indexed: 20.8 ml/m2 LVLd ap4: 7.3 cm LVLd ap2: 7.4 cm LAV(MOD-sp2): 29.8 ml EDV(MOD-sp4): 57.9 ml EDV(MOD-sp2): 54.0 ml LAV(MOD-sp4): 38.6 ml EDV(sp4-el): 58.6 ml EDV(sp2-el): 54.0 ml LVAs ap4: 11.1 cm2 LVAs ap2: 11.7 cm2 LVLs ap4: 6.0 cm LVLs ap2: 6.4 cm ESV(MOD-sp4): 17.7 ml ESV(MOD-sp2): 18.4 ml ESV(sp4-el): 17.3 ml ESV(sp2-el): 18.0 ml EF(MOD-sp4): 69.5 % EF(MOD-sp2): 66.0 % EF(sp4-el): 70.4 % SV(MOD-sp4): 40.2 ml SV(MOD-sp2): 35.6 ml SV(sp4-el): 41.3 ml SI(MOD-sp4): 24.4 ml/m2 SI(MOD-sp2): 21.6 ml/m2 LA A4 area: 15.3 cm2 LA dimension(2D): 2.6 cm RA A4 area: 15.2 cm2 TAPSE: 2.6 cm Time Measurements MV dec time: 0.34 sec Doppler Measurements Calculations MV E max radha: 74.4 cm/sec Lat Peak E' Radha: 6.2 cm/sec Med Peak E' Radha: 6.0 cm/sec MV A max radha: 107.8 cm/sec E/E' lat: 12.0 E/E' med: 12.5 MV E/A: 0.69 Ao V2 max: 114.9 cm/sec AI max radha: 468.4 cm/sec MV dec slope: 217.3 cm/sec2 Ao max P.3 mmHg AI max P.8 mmHg Ao V2 mean: 79.6 cm/sec Ao mean P.9 mmHg AI dec slope: 272.9 cm/sec2 Ao V2 VTI: 31.3 cm AI P1/2t: 502.7 msec AV (velocity ratio): 0.80 LV V1 max: 88.8 cm/sec PA V2 max: 77.9 cm/sec TR max radha: 293.2 cm/sec LV V1 max P.2 mmHg TR max P.4 mmHg LV V1 mean P.8 mmHg LV V1 mean: 63.5 cm/sec LV V1 VTI: 25.2 cm ECHO/Echo Complete Interpretation Summary The left ventricular ejection fraction is 60 %. Normal LV size. Apical noncompaction noted There is mild to moderate mitral annular calcification. Stage 1 diastolic dysfunction. The global longitudinal strain is normal. The global longitudinal strain = -18.9 % (normal). Ordering Physician: Migel Godoy Performed By: Alysha Conner RDCS 04/10/25 1101 Date Vasile Reyes MD CC: Dr. Adilson Melchor DO; Dr. Migel Godoy DO; Dr. Susannah Clemente MD Date Dictated: 04/10/25 0938 Date Transcribed: 04/10/25 1100 [employer] Restorer: Signed Normal [facility] Echocardiogram study reportO rdered By: Vasile Reyes on 04-10-2025 Study report [facility] Cardiovascular Services [address] [place] [address] Echo Complete 04/10/25 0938 MR#: [id number] Acct: [id number] Name: ZENAIDA EVANS Rep #:[id number] : 1935 89 From: Vasile Forte Attending Dr: Dr. Adilson Melchor, Status: ADM IN Ordering Dr: Migel Godoy DO Date: 04/10/25 Location: [facility] Sex: F C Admitted: 04/09/25 Reason For Study : Chest pain Procedure This was a 2D Doppler, Color Flow transthoracic echocardiogram. Myocardial strain analysis was performed in this exam to aid in the assessment of cardiac function. Exam performed portable in patient room. Left Ventricle Normal LV size. Apical noncompaction noted. The left ventricular ejection fraction is 60 %. Stage 1 diastolic dysfunction. No regional wall motion abnormalities noted. Right Ventricle Normal RV size. Normal systolic function. Atria Normal left atrium. Normal right atrium. Mitral Valve There is mild to moderate mitral annular calcification. Mild (1+) eccentric mitral valve insufficiency. Tricuspid Valve Normal tricuspid valve. Mild (1+) tricuspid valve insufficiency. Pulmonary artery systolic pressure is 38 mmHg. Aortic Valve Trisinus/trileaflet aortic valve. Mild (1+) aortic valve insufficiency. Pulmonic Valve Normal pulmonic valve. Great Vessels Normal aortic root. The pulmonary artery is normal size. Inferior vena cava collapse with respiration. Pericardium/Pleural No pericardial effusion. MMode/2D Measurements & Calculations LVIDd: 3.4 cm IVSd: 0.95 cm Ao root diam: 3.0 cm LVIDs: 2.1 cm LVPWd: 0.88 cm RVDd: 3.2 cm FS: 38.0 % LAV(MOD-bp): 34.2 ml LVAd ap4: 22.4 cm2 LVAd ap2: 21.7 cm2 LAV(MOD-bp) Indexed: 20.8 ml/m2 LVLd ap4: 7.3 cm LVLd ap2: 7.4 cm LAV(MOD-sp2): 29.8 ml EDV(MOD-sp4): 57.9 ml EDV(MOD-sp2): 54.0 ml LAV(MOD-sp4): 38.6 ml EDV(sp4-el): 58.6 ml EDV(sp2-el): 54.0 ml LVAs ap4: 11.1 cm2 LVAs ap2: 11.7 cm2 LVLs ap4: 6.0 cm LVLs ap2: 6.4 cm ESV(MOD-sp4): 17.7 ml ESV(MOD-sp2): 18.4 ml ESV(sp4-el): 17.3 ml ESV(sp2-el): 18.0 ml EF(MOD-sp4): 69.5 % EF(MOD-sp2): 66.0 % EF(sp4-el): 70.4 % SV(MOD-sp4): 40.2 ml SV(MOD-sp2): 35.6 ml SV(sp4-el): 41.3 ml SI(MOD-sp4): 24.4 ml/m2 SI(MOD-sp2): 21.6 ml/m2 LA A4 area: 15.3 cm2 LA dimension(2D): 2.6 cm RA A4 area: 15.2 cm2 TAPSE: 2.6 cm Time Measurements MV dec time: 0.34 sec Doppler Measurements & Calculations MV E max radha: 74.4 cm/sec Lat Peak E' Radha: 6.2 cm/sec Med Peak E' Radha: 6.0 cm/sec MV A max radha: 107.8 cm/sec E/E' lat: 12.0 E/E' med: 12.5 MV E/A: 0.69 Ao V2 max: 114.9 cm/sec AI max radha: 468.4 cm/sec MV dec slope: 217.3 cm/sec2 Ao max P.3 mmHg AI max P.8 mmHg Ao V2 mean: 79.6 cm/sec Ao mean P.9 mmHg AI dec slope: 272.9 cm/sec2 Ao V2 VTI: 31.3 cm AI P1/2t: 502.7 msec AV (velocity ratio): 0.80 LV V1 max: 88.8 cm/sec PA V2 max: 77.9 cm/sec TR max radha: 293.2 cm/sec LV V1 max P.2 mmHg TR max P.4 mmHg LV V1 mean P.8 mmHg LV V1 mean: 63.5 cm/sec LV V1 VTI: 25.2 cm ECHO/Echo Complete Interpretation Summary The left ventricular ejection fraction is 60 %. Normal LV size. Apical noncompaction noted There is mild to moderate mitral annular calcification. Stage 1 diastolic dysfunction. The global longitudinal strain is normal. The global longitudinal strain = -18.9% (normal). Ordering Physician: Migel Godoy Performed By: Alysha Conner RDCS 04/10/25 1101 Date _ Vasile Reyes MD CC: Dr. Adilson Melchor DO; Dr. Migel Godoy DO; Dr. Susannah Clemente MD ~ Date Dictated: 04/10/25 0938 Date Transcribed: 04/10/25 1100 [employer] Restorer: Signed [facility] Work Phone: Electrocardiogram reportOrde red By: Vasile Reyes on 04-10-2025 EKG study [facility] Cardiovascular Services [address] [place] [address] 12 Lead EKG 04/09/25 1858 MR#: [id number] Acct: [id number] Name: ZENAIDA EVANS Rep #:[id number] : 1935 89 From: Vasile Reyes MD Attending Dr: Dr. Adilson Melchor DO Status: ADM IN Ordering Dr: Serge Mcmullen MD Date: Location: [facility] Sex: F C Admitted: 04/09/25 Test Reason : CP Blood Pressure : */* mmHG Vent. Rate : 64 BPM Atrial Rate : 64 BPM P-R Int : 166 ms QRS Dur : 74 ms QT Int : 408 ms P-R-T Axes : 74 54 65 degrees QTcB Int : 420 ms Normal sinus rhythm Possible Left atrial enlargement Borderline ECG Confirmed by VASILE REYES MD ([id number]), video effects editor NICOLAS HUERTAS ([id number]) on 04/10/2025 11:26:13 AM Referred By: ES Confirmed By: VASILE REYES MD 04/10/25 1126 Date _ Vasile Reyes MD CC: Dr. Serge Mcmullen MD; Dr. Adilson Melchor DO; Dr. Susannah Clemente MD ~ Signed [facility] Work Phone: EKG study [facility] Cardiovascular Services [address] [place] [address] 12 Lead EKG 04/10/25 0026 MR#: [id number] Acct: [id number] Name: ZENAIDA EVANS Rep #:[id number] : 1935 89 From: Vasile Reyes MD Attending Dr: Dr. Adilson Melchor DO Status: ADM IN Ordering Dr: Migel Godoy DO Date: 04/09/25 Location: [facility] Sex: F C Admitted: 04/09/25 Test Reason : cp Blood Pressure : */* mmHG Vent. Rate : 66 BPM Atrial Rate : 66 BPM P-R Int : 166 ms QRS Dur : 76 ms QT Int : 398 ms P-R-T Axes : 69 48 66 degrees QTcB Int : 417 ms Normal sinus rhythm Normal ECG When compared with ECG of 09-Apr-2025 18:58, MANUAL COMPARISON REQUIRED DATA IS UNCONFIRMED Confirmed by VASILE REYES MD ([id number]), video effects editor NICOLAS HUERTAS ([id number]) on 04/10/2025 11:00:41 AM Referred By: Confirmed By: VASILE REYES MD 04/10/25 1100 Date _ Vasile Reyes MD CC: Dr. Adilson Melchor, DO; Dr. Migel Godoy DO; Dr. Susannah Clemente MD ~ Signed [facility] Work Phone: [phone] 04-10-2025 Trop T High Sen 88 ng/L Invalid Interpretation Code <=14 [facility] Comment on above: Result Comment: Crit ical Result(s) Called at:0020 by: HOLLY JUAREZ TO RAHEL GONZALEZ??Results read back by same. Performed By: #### L 499.0043 ####[facility] [address] [place], [place], [id number] LDL calc ser/plasOrdered By: Migel Lazaro on 04-10-2025 Cholesterol in LDL [Mass/Vol] 96 mg/dL [facility] Comment on above: Lxcxygtqtf=825-120 m g/dL & Higher Jmro=477 mg/dL or greater Laboratory - Chemistry and C hemistry - challengeOrdered By: Migel Lazaro on 04-10-2025 AST [Catalytic activity/Vol] 19 U/L <32 [facility] Lipid Profileon 04-10-2025 CHOL:HDL 2.74 Normal [facility] Comment on above: Performed By: #### L 300.8000, L100.0500, L500.4100, L501.9520, L500.4050 ####[facility] [address] [place], [place], [address] Cholesterol [Mass/Vol] 169 mg/dL Normal <=200 [facility] Comment on above: Result Comment: Chol esterol level, Desirable <200 mg/dL Borderline high cholesterol 200-239 mg/dL High cholesterol >=240 mg/dL Recommendations of the NCEP Adult Treatment Panel for the following risk-cutoff thresholds for the [place] population. Performed By: #### L 300.8000, L100.0500, L500.4100, L501.9520, L500.4050 ####[facility] [address] [place], [address] Cholesterol in HDL [Mass/Vol] 62 mg/dL Normal [facility] Comment on above: Result Comment: Makayla onal Cholesterol Education Program (NCEP) guidelines: <40 mg/dL: Low HDL-cholesterol (major risk factor for CHD) >= 60 mg/dL: High HDL-cholesterol (negative risk factor for CHD) HDL-cholesterol is affected by a number of factors, e.g. smoking, exercise, hormones, sex and age. Performed By: #### L 300.8000, L100.0500, L500.4100, L501.9520, L500.4050 ####[facility] [address] [place], [address] Cholesterol in LDL [Mass/Vol] 96 mg/dL Normal [facility] Comment on above: Result Comment: Bord emhqpc=080-497 mg/dL Higher Wycj=899 mg/dL or greater Performed By: #### L 300.8000, L100.0500, L500.4100, L501.9520, L500.4050 ####[facility] [address] [place], [address] Cholesterol in VLDL [Mass/Vol] 11 mg/dL Normal 5-40 [facility] Comment on above: Performed By: #### L 300.8000, L100.0500, L500.4100, L501.9520, L500.4050 ####[facility] [address] [place], [address] Triglyceride [Mass/Vol] 54 mg/dL Normal [facility] Comment on above: Result Comment: The drugs N-Acetylcysteine and Metamizole may falsely depress this assay. Normal range: <150 mg/dL Borderline High: 150-199 mg/dL High: 200-499 mg/dL Very High: >500 mg/dL Performed By: #### L 300.8000, L100.0500, L500.4100, L501.9520, L500.4050 ####[facility] [address] [place], [place], [address] Partial Thromboplast Timeon 04-10-2025 aPTT Coag (Bld) [Time] 180.0 s Invalid Interpretation Code 24.1-36.2 [facility] Comment on above: Result Comment: CRIT ICAL VALUE CALLED TO ABDOUL 04/10/25 0453 Saurabh Singer. RESULTS READ BACK BY SAME. Performed By: #### L [id number] #### [facility] Laboratory [address] [place], [address] Screening total cholesterol/ high density lipoprotein (HDL) cholesterol ratioOrdered By: Migel Lazaro on 04-10-2025 Cholesterol.total/Chol esterol in HDL [Mass ratio] 2.74 {ratio} [facility] Serum globulin measurementOr dered By: Migel Lazaro on 04-10-2025 Globulin (S) [Mass/Vol] 2.5 g/dL 2.2-4.2 [facility] Serum or plasma alanine brown otransferase (ALT) measurementOrdered By: Migel Lazaro on 04-10-2025 ALT [Catalytic activity/Vol] 22 U/L <35 [facility] Serum or plasma albumin ashley urement (mass/volume)Ordered By: Migel Lazaro on 04-10-2025 Albumin [Mass/Vol] 3.8 g/dL 3.4-4.8 [facility] Serum or plasma albumin/glob ulin mass ratioOrdered By: Migel Lazaro on 04-10-2025 Albumin/Globulin [Mass ratio] 1.6 {ratio} 0.9-2.4 [facility] Serum or plasma alkaline yoli sphatase measurementOrdered By: Migel Lazaro on 04-10-2025 ALP [Catalytic activity/Vol] 69 U/L 35-104 [facility] Serum or plasma cholesterol in HDL measurement (mass/volume)Ordered By: Migel Lazaro on 04-10-2025 Cholesterol in HDL [Mass/Vol] 62 mg/dL >40 [facility] Comment on above: National Cholesterol Education Program (NCEP) guidelines:<40 mg/dL: Low HDL-cholesterol (major risk factor for CHD)>= 60 mg/dL: High HDL-cholesterol (negative risk factor for CHD)HDL-cholesterol is affected by a number of factors, e.g. smoking, exercise, hormones, sex and age. Serum or plasma cholesterol measurement (mass/volume)Ordered By: Migel Lazaro on 04-10-2025 Cholesterol [Mass/Vol] 169 mg/dL <201 [facility] Comment on above: Cholesterol level, D esirable <200 mg/dLBorderline high cholesterol 200-239 mg/dLHigh cholesterol >=240 mg/dLRecommendations of the NCEP Adult Treatment Panel for the following risk-cutoff thresholds for the Martiniqu[place] population. TSH DL <= 0.005 mIU/L QnOrde red By: Migel Lazaro on 04-10-2025 TSH Qn 2.150 uIU/mL 0.300-4.20 0 [facility] Thyroid Stim Hormone (TSH)on 04-10-2025 TSH 2.150 uIU/mL Normal 0.300-4.20 0 [facility] Comment on above: Performed By: #### L 300.8000, L100.0500, L500.4100, L501.9520, L500.4050 ####[facility] [address] [place], [address] Total proteinOrdered By: Salazar Lazaro on 04-10-2025 Protein [Mass/Vol] 6.3 g/dL 5.9-8.4 [facility] Triglycerides measurementOrd ered By: Migel Lazaro on 04-10-2025 Triglyceride [Mass/Vol] 54 mg/dL <199 [facility] Comment on above: The drugs N-Acetylcy steine and Metamizole may falsely depress this assay. Normal range: <150 mg/dLBorderline High: 150-199 mg/dLHigh: 200-499 mg/dLVery High: >500 mg/dL Venous Duplex US - Alberto Extre mon 04-10-2025 Venous Duplex US - Alberto Extrem [facility] Cardiovascular Services [address] [place] [address] Venous Duplex US - Alberto Extrem 04/10/25 1119 MR#: [id number] Acct: [id number] Name: ZENAIDA EVANS Rep #: [id number] : 1935 89 From: Richard Angelo MD Attending Dr: Dr. Adilson Melchor DO Status : ADM IN Ordering Dr: Migel Godoy DO Date: 04/10/25 Location: [facility] Sex: F C Admitted: 04/09/25 Reason For Study Reason For Study: Elevated D-Dimer RIGHT LEFT CFV is compressible, spontaneous, phasic, competent CFV is compressible, spontaneous, phasic, competent, and demonstrates normal augmentation. and demonstrates normal augmentation. FV is compressible, spontaneous, phasic, competent FV is compressible, spontaneous, phasic, competent and demonstrates normal augmentation. and demonstrates normal augmentation. POP V is compressible, spontaneous, phasic, competent POP V is compressible, spontaneous, phasic, competent and demonstrates normal augmentation. and demonstrates normal augmentation. T/P Trunk is compressible. T/P Trunk is compressible. PTV is compressible. Lt GastrocV and Lt PTV are DILATED and NON RT PerV is compressible. COMPRESSIBLE consistent with acute DVT, very short Hypoechoic, non vascular structure noted Rt Pop Fossa segments measuring 1.18cm x 2.28cm Lt GSV previous vein stripping. Rt GSV previous vein stripping. LT PerV is compressible. Procedure This is a venous duplex using B-mode, color flow and spectral Doppler. Exam performed portable in patient room. A preliminary report was called and/or faxed to Toyin GALLARDO. VL/Venous Duplex US - Alberto Extrem Interpretation Summary Acute deep vein thrombosis noted in the left gastrocnemius vein, posterior tibial vein. Hypoechoic, non vascular structure noted right popliteal fossa measuring 1.18cm x 2.28cm Ordering Physician: Migel Godoy Referring Physician: Susannah Clemente Performed By: Treva Singer, PALLAVICS, RVT 06/24/25 1652 Date Richard Angelo MD CC: Dr. Adilson Melchor DO; Dr. Migel Godoy DO; Dr. Susannah Clemente MD Date Dictated: 04/10/25 1119 Date Transcribed: 04/10/251651 [employer] Restorer: Signed Normal [facility] Venous duplex ultrasound rep ortOrdered By: Richard Angelo on 04-10-2025 US Vein [facility] Cardiovascular Services [address] [place] [address] Venous Duplex US - Alberto Extrem 04/10/251118 MR#: [id number] Acct: [id number] Name: ZENAIDA EVANS Rep #:[id number] : 1935 89 From: Richard Forte Attending Dr: Dr. Adilson Melchor DO Status: ADM IN Ordering Dr: Migel Godoy DO Date: 04/10/25 Location: U Sex: F C Admitted: 04/09/25 Reason For Study Reason For Study: Elevated D-Dimer RIGHT LEFT CFV is compressible, spontaneous, phasic, competent CFV is compressible, spontaneous, phasic, competent, and demonstrates normal augmentation. and demonstrates normal augmentation. FV is compressible, spontaneous, phasic, competent FV is compressible, spontaneous, phasic, competent and demonstrates normal augmentation. and demonstrates normal augmentation. POP V is compressible, spontaneous, phasic, competent POP V is compressible, spontaneous, phasic, competent and demonstrates normal augmentation. and demonstrates normal augmentation. T/P Trunk is compressible. T/P Trunk is compressible. PTV is compressible. Lt GastrocV and Lt PTV are DILATED and NON RT PerV is compressible. COMPRESSIBLE consistent with acute DVT, very short Hypoechoic, non vascular structure noted Rt Pop Fossa segments measuring 1.18cm x 2.28cm Lt GSV previous vein stripping. Rt GSV previous vein stripping. LT PerV is compressible. Procedure This is a venous duplex using B-mode, color flow and spectral Doppler. Exam performed portable in patient room. A preliminary report was called and/or faxed to Toyin GALLARDO. VL/Venous Duplex US - Alberto Extrem Interpretation Summary Acute deep vein thrombosis noted in the left gastrocnemius vein, posterior tibial vein. Hypoechoic, non vascular structure noted right popliteal fossa measuring 1.18cm x 2.28cm Ordering Physician: Migel Godoy Referring Physician: Susannah Clemente Performed By: Treva Singer, JOSE DANIEL, RVT 04/10/251651 Date _ Richard Angelo MD CC: Dr. Adilson Melchor DO; Dr. Migel Godoy DO; Dr. Susannah Clemente MD ~ Date Dictated: 04/10/25 1119 Date Transcribed: 04/10/251651 [employer] Restorer: Signed [facility] Work Phone: 12 Lead EKGon 04-09-2025 12 Lead EKG [facility] Cardiovascular Services [address] [place] [address] 12 Lead EKG 04/10/25 0026 MR#: [id number] Acct: [id number] Name: ZENAIDA EVANS Rep #: [id number] : 1935 89 From: Vasile Reyes MD Attending Dr: Dr. Adilson Melchor DO Status : ADM IN Ordering Dr: Migel Godoy DO Date: 04/09/25 Location: [facility] Sex: F C Admitted: 04/09/25 Test Reason : cp Blood Pressure : */* mmHG Vent. Rate : 66 BPM Atrial Rate : 66 BPM P-R Int : 166 ms QRS Dur : 76 ms QT Int : 398 ms P-R-T Axes : 69 48 66 degrees QTcB Int : 417 ms Normal sinus rhythm Normal ECG When compared with ECG of 09-Apr-2025 18:58, MANUAL COMPARISON REQUIRED DATA IS UNCONFIRMED Confirmed by VASILE REYES MD ([id number]), video effects editor NICOLAS HUERTAS ([id number]) on 04/10/2025 11:00:41 AM Referred By: Confirmed By: VASILE REYES MD 04/10/25 1100 Date Vasile Reyes MD CC: Dr. Adilson Melchor DO; Dr. Migel Godoy DO; Dr. Susannah Clemente MD Signed [facility] 12 Lead EKG [facility] Cardiovascular Services [address] [place] [address] 12 Lead EKG 04/09/25 1858 MR#: [id number] Acct: [id number] Name: ZENAIDA EVANS Rep #: [id number] : 1935 89 From: Vasile Reyes MD Attending Dr: Dr. Adilson Melchor DO Status : ADM IN Ordering Dr: Serge Mcmullen MD Date: 04/09/25 Location: [facility] Sex: F C Admitted: 04/09/25 Test Reason : CP Blood Pressure : */* mmHG Vent. Rate : 64 BPM Atrial Rate : 64 BPM P-R Int : 166 ms QRS Dur : 74 ms QT Int : 408 ms P-R-T Axes : 74 54 65 degrees QTcB Int : 420 ms Normal sinus rhythm Possible Left atrial enlargement Borderline ECG Confirmed by VASILE REYES MD ([id number]), video effects editor NICOLAS HUERTAS ([id number]) on 04/10/2025 11:26:13 AM Referred By: ES Confirmed By: VASILE REYES MD 04/10/25 1126 Date Vasile Reyes MD CC: Dr. Serge Mcmullen MD; Dr. Adilson Melchor DO; Dr. Susannah Clemente MD Signed Normal [facility] Absolute lymphocyte countOrd ered By: ED PROVIDER on 04-09-2025 Lymphocytes Auto (Unsp spec) [#/Vol] 1.84 10*3/uL 0.83-4.51 [facility] Absolute neutrophil countOrd ered By: ED PROVIDER on 04-09-2025 Neutrophils (Bld) [#/Vol] 2.8 10*3/uL 2.0-7.7 [facility] Activated partial thrombopla stin time (aPTT) in platelet poor plasma by coagulation aOrdered By: Serge Mcmullen on 04-09-2025 aPTT Coag (PPP) [Time] 28.4 s 24.1-36.2 [facility] Anion gap in Serum or Plasma Ordered By: ED PROVIDER on 04-09-2025 Anion gap [Moles/Vol] 12 mmol/L 5-15 [facility] Automated lymphocyte count a s percentage of total leukocytesOrdered By: ED PROVIDER on 04-09-2025 Lymphocytes/100 WBC Auto (Unsp spec) 32.1 % 19-41 [facility] BUN/creatinine ratioOrdered By: ED PROVIDER on 04-09-2025 Urea nitrogen/Creatinine [Mass ratio] 20.3 mg/mg High 10-20 [facility] Basic Metabolic Profile (BMP )on 04-09-2025 BUN/CRE 20.3 RATIO High - [facility] Comment on above: Performed By: #### L 500.2500, L100.0100, L501.4021 ####[facility] [address] [place], [address] Calcium [Mass/Vol] 9.5 mg/dL Normal 7.6-11.0 [facility] Comment on above: Performed By: #### L 500.2500, L100.0100, L501.4021 ####[facility] [address] [place], [address] Chloride [Moles/Vol] 101 mmol/L Normal 98-108 [facility] Comment on above: Performed By: #### L 500.2500, L100.0100, L501.4021 ####[facility] [address] [place], [address] CO2 [Moles/Vol] 25.2 mmol/L Normal 21.0-32.0 [facility] Comment on above: Performed By: #### L 500.2500, L100.0100, L501.4021 ####[facility] [address] [place], [address] Creatinine [Mass/Vol] 1.54 mg/dL High 0.70-1.20 [facility] Comment on above: Performed By: #### L 500.2500, L100.0100, L501.4021 ####[facility] [address] [place], [address] ECRCL 23.40 ml/min Low 50-250 [facility] Comment on above: Performed By: #### L 500.2500, L100.0100, L501.4021 ####[facility] [address] [place], [address] GAP 12 Normal 5-15 [facility] Comment on above: Performed By: #### L 500.2500, L100.0100, L501.4021 ####[facility] [address] [place], [address] GFR/1.73 sq M.predicted among non-blacks MDRD (S/P/Bld) [Vol rate/Area] 32 mL/min/{1.73_m2} Low >60 [facility] Comment on above: Result Comment: mL/m in/1.73m2 CKD-EPI Creatinine Equation (2020) Performed By: #### L 500.2500, L100.0100, L501.4021 ####[facility] [address] [place], [address] Glucose [Mass/Vol] 98 mg/dL Normal 70-99 [facility] Comment on above: Performed By: #### L 500.2500, L100.0100, L501.4021 ####[facility] [address] [place], [address] Potassium [Moles/Vol] 4.7 mmol/L Normal 3.3-5.1 [facility] Comment on above: Performed By: #### L 500.2500, L100.0100, L501.4021 ####[facility] [address] [place], [address] Sodium [Moles/Vol] 138 mmol/L Normal 133-145 [facility] Comment on above: Performed By: #### L 500.2500, L100.0100, L501.4021 ####[facility] [address] [place], [address] Urea nitrogen [Mass/Vol] 31 mg/dL High 4-19 [facility] Comment on above: Performed By: #### L 500.2500, L100.0100, L501.4021 ####[facility] [address] [place], [address] Basophil percentageOrdered B y: ED PROVIDER on 04-09-2025 Basophils/100 WBC (Bld) 0.5 % 0-1 [facility] CBC W/Diff, Automatedon - Absolute Lymph 1.84 X10 3/uL Normal 0.83-4.51 [facility] Comment on above: Performed By: #### L 500.2500, L100.0100, L501.4021 ####[facility] [address] [place], [address] Absolute Neut 2.8 X10 3/uL Normal 2.0-7.7 [facility] Comment on above: Performed By: #### L 500.2500, L100.0100, L501.4021 ####[facility] [address] [place], [address] Basophils/100 WBC (Bld) 0.5 % Normal 0-1 [facility] Comment on above: Performed By: #### L 500.2500, L100.0100, L501.4021 ####[facility] [address] [place], [address] Eosinophils/100 WBC (Bld) 5.2 % High 0-5 [facility] Comment on above: Performed By: #### L 500.2500, L100.0100, L501.4021 ####[facility] [address] [place], [address] Erythrocyte distribution width (RBC) [Ratio] 12.9 % Normal 11.6-14.6 [facility] Comment on above: Performed By: #### L 500.2500, L100.0100, L501.4021 ####[facility] [address] [place], [address] Hematocrit (Bld) [Volume fraction] 37.2 % Normal 37-47 [facility] Comment on above: Performed By: #### L 500.2500, L100.0100, L501.4021 ####[facility] [address] [place], [address] Hemoglobin (Bld) [Mass/Vol] 12.4 g/dL Normal 12.0-15.0 [facility] Comment on above: Performed By: #### L 500.2500, L100.0100, L501.4021 ####[facility] [address] [place], [address] IG% 0.200 Normal 0.0-0.9 [facility] Comment on above: Result Comment: IG% - Immature Granulocytes (promyelocytes, myelocytes and metamyelocytes) > 1% indicates that a LEFT SHIFT is Present. Performed By: #### L 500.2500, L100.0100, L501.4021 ####[facility] [address] [place], [address] Lymphocytes/100 WBC (Bld) 32.1 % Normal 19-41 [facility] Comment on above: Performed By: #### L 500.2500, L100.0100, L501.4021 ####[facility] [address] [place], [address] MCH (RBC) [Entitic mass] 31.4 pg Normal 27.0-32.0 [facility] Comment on above: Performed By: #### L 500.2500, L100.0100, L501.4021 ####[facility] [address] [place], [address] MCHC (RBC) [Mass/Vol] 33.3 g/dL Normal 32-36 [facility] Comment on above: Performed By: #### L 500.2500, L100.0100, L501.4021 ####[facility] [address] [place], [address] MCV (RBC) [Entitic vol] 94.2 fL Normal 81-99 [facility] Comment on above: Performed By: #### L 500.2500, L100.0100, L501.4021 ####[facility] [address] [place], [address] Monocytes/100 WBC (Bld) 12.7 % High 0-10 [facility] Comment on above: Performed By: #### L 500.2500, L100.0100, L501.4021 ####[facility] [address] [place], [address] Neutrophils/100 WBC (Bld) 49.3 % Normal 47-70 [facility] Comment on above: Performed By: #### L 500.2500, L100.0100, L501.4021 ####[facility] [address] [place], [address] Nucleated RBC (Bld) [#/Vol] 0 10*3/uL Normal 0-5 [facility] Comment on above: Performed By: #### L 500.2500, L100.0100, L501.4021 ####[facility] [facility] [id number] [place], [address] Platelet mean volume (Bld) [Entitic vol] 9.7 fL Normal 6.2-12.0 [facility] Comment on above: Performed By: #### L 500.2500, L100.0100, L501.4021 ####[facility] [address] [place], [address] Platelets (Bld) [#/Vol] 216 10*3/uL Normal 150-450 [facility] Comment on above: Performed By: #### L 500.2500, L100.0100, L501.4021 ####[facility] [address] [place], [address] RBC (Bld) [#/Vol] 3.95 10*6/uL Low 4.2-5.4 [facility] Comment on above: Performed By: #### L 500.2500, L100.0100, L501.4021 ####[facility] [address] [place], [address] RDW SD 44.4 fl High 35.1-43.9 [facility] Comment on above: Performed By: #### L 500.2500, L100.0100, L501.4021 ####[facility] [address] [place], [address] WBC (Bld) [#/Vol] 5.7 10*3/uL Normal 4.4-11.0 [facility] Comment on above: Performed By: #### L 500.2500, L100.0100, L501.4021 ####[facility] [address] [place], [address] Carbon dioxide, total [Moles /volume] in Central venous bloodOrdered By: ED PROVIDER on 04-09-2025 CO2 [Moles/Vol] 25.2 mmol/L 21.0-32.0 [facility] Chest 1 View (Portable)on Chest 1 View (Portable) [facility] Imaging Services [address] [place] [address] Chest 1 View (Portable) MR#: [id number] Acct: [id number] Name: ZENAIDA EVANS Rep #: [id number] : 1935 F 89 From: Josue Scott MD PCP: Dr. Susannah Clemente MD Status: REG ER Study: Chest 1 View (Portable) Date of Exam: 04/09/25 Exam# [id number] Ordering Dr: Piter,Ed P. PROCEDURE: CHEST 1 VIEW (PORTABLE) 04/09/2025 REASON FOR EXAM: CHEST PAIN TECHNIQUE: Frontal view of the chest. COMPARISON: Chest radiographs on 11/06/2023 and 10/15/2019 FINDINGS: Hardware: None Heart: Cardiac and mediastinal contours are stable. Lungs: Round 8 mm calcification with adjacent surgical clips projecting over the right lower lung zone, unchanged. No new focal consolidation or pleural effusion. Lung volumes are increased with flattening of the hemidiaphragms. Bones: Degenerative changes are identified within the shoulders and thoracic spine. RAD/Chest 1 View (Portable) IMPRESSION: Sequela of COPD, without an acute cardiopulmonary abnormality. Reading Location: [id number] CC: Dr. Susannah Clemente MD; ED PHYSICIAN PROVIDER [employer] Restorer: Signed Normal [facility] Chloride assayOrdered By: ED PROVIDER on 04-09-2025 Chloride [Moles/Vol] 101 mmol/L 98-108 [facility] Emergency Department Summary on 04-09-2025 Emergency Department Summary [facility] Health System Medical Records Department [address] [place] [address] Emergency Department Summary 04/09/25 MR#: [id number] Acct: [id number] Name: ZENAIDA EVANS Rep #: [id number] : 1935 89 From: Serge Mcmullen MD PCP: Dr. Susannah Clemente MD Status:REG ER Location: ED HPI History of Present [...] for the first 24 hours. She has had nausea in the past and states that she took medication which improved it. She gets the sensations of chest pressure suddenly come on, then tend to let up. She denies any recent fevers or chills, no shortness of breath. She sees a regional sales associate at the [facility]. While she does not take furosemide daily, she is on other diuretics including Farxiga. No increased swelling of her legs. No exacerbating or alleviating factors. There is no predictability to chest pressure nausea. [facility] Medical History CHF (congestive heart failure) Home Medications ???Medication ???Instructions ???Recorded ???Last Taken ???Type aspirin 81 mg chewable tablet 81 mg PO DAILY@0800 heart 01/18/18 Unknown History levothyroxine 88 mcg tablet 88 mcg PO DAILY thyroid 01/18/18 0 01/30/18 History acetaminophen 500 mg tablet 1,000 mg (2 x 500 mg) PO Q8 02/01/18 Rx cholecalciferol (vitamin D3) 25 25 mcg PO DAILY 10/16/19 Unknown H istory mcg (1,000 unit) capsule gabapentin 100 mg capsule 200 mg PO QHS 10/16/19 Unknown His tory hydrochlorothiazide 25 mg tablet 12.5 mg PO DAILY 10/16/19 Unknown History labetalol 200 mg tablet 100 mg PO BID 10/16/19 Unknown His tory melatonin 5 mg capsule 5 mg PO QHS 12/30/19 Unknown Histo ry valsartan 160 mg tablet 160 mg PO DAILY 10/16/19 Unknown H istory amlodipine 5 mg tablet 5 mg PO DAILY 10/18/19 Unknown Rx budesonide 3 mg 1 cap PO TID ##0 10/18/19 Unknown Rx capsule,delayed,extended release clonidine 0.1 mg/24 hr weekly 1 patch 11/06/23 Unknown History transdermal patch furosemide 20 mg tablet 20 mg 11/06/23 Unknown History ondansetron 4 mg disintegrating 4 mg PO Q8H PRN PRN Nausea #10 tab s 11/06/23 Unknown Rx tablet indapamide 1.25 mg tablet 1.25 mg PO DAILY 04/09/25 Unknown History minoxidil 2.5 mg tablet PO 04/09/25 Unknown History nitroglycerin 0.4 mg sublingual mg sublingual 04/09/25 Unknown His tory tablet Allergy/AdvReac Type Severity Reaction Status Date / Time iron Allergy Unknown Verified 04/09/25 18:49 pentazocine (From [employer]) Allergy Other Verified 04/09/25 18:49 scopolamine Allergy Other Verified 04/09/25 18:49 Family History no significant family his Social History Smoking Status: Former smoker ROS ROS ED ROS Narrative Review of systems positive for chest pressure, nausea, mild shortness of breath, no leg swelling, no fevers or chills, no [...] versus pneumothorax. History and physical does not support pneumonia or pneumothorax. EKG was obtained and interpreted by myself independently. It demonstrates normal sinus rhythm at 64 bpm without ectopy or acute ST changes. No STEMI. I reviewed her laboratory work init (more content not included)... Normal [facility] Eosinophil percentageOrdered By: ED PROVIDER on 04-09-2025 Eosinophils/100 WBC (Bld) 5.2 % High 0-5 [facility] Erythrocyte distribution wid th ratioOrdered By: ED PROVIDER on 04-09-2025 Erythrocyte distribution width (RBC) [Ratio] 12.9 % 11.6-14.6 [facility] Erythrocyte distribution wid th standard deviationOrdered By: ED PROVIDER on 04-09-2025 Erythrocyte distribution width (RBC) [Ratio] 44.4 fl High 35.1-43.9 [facility] Glomerular filtration rate ( GFR) estimation/1.73 sq m using serum, plasma, or whole bOrdered By: ED PROVIDER on 04-09-2025 GFR/1.73 sq M.predicted among non-blacks MDRD (S/P/Bld) [Vol rate/Area] 32 mL/min/{1.73_m2} Low >60 [facility] Comment on above: mL/min/1.73m2 CKD-EP I Creatinine Equation (2020) H AND P Exam - [facility] 04-09-2025 H&P Exam - Hospitalist [facility] Health System Medical Records Department [address] [place] [address] H P Exam - Hospitalist 04/09/25 2255 MR#: [id number] Acct: [id number] Name: ZENAIDA EVANS Rep #: [id number] : 1935 89 From: Migel Godoy DO PCP: Dr. Susannah Clemente MD Status:ADM IN Location: [place] [id number] HPI - General General Date of Admission: 04/09/25 Date of Service: 04/09/25 Chief Complaint: Chest Pain. HPI Narrative ZENAIDA EVANS, is a 89 F with past medical history of essential hypertension; on valsartan, labetalol, amlodipine, indapamide, hydrochlorothiazide and furosemide, hypothyroidism; on levothyroxine, former tobacco abuse, history of chronic diastolic CHF; LVEF 65% and stage I diastolic dysfunction (2019) followed by regional sales associate at [facility], neuropathy; on gabapentin, history of microscopic colitis, history of Right breast cancer; s/p lumpectomy with radiation and OA who presents to [facility] ER complaining of chest pain. Ms. Evans reports her symptoms began more than a month ago but then 5 days ago they became very intense with chest pressure that was [id number], substernal and nonradiating with pain that would come on suddenly and then let up spontaneously with nothing seeming to make the pain better or worse. She also admits to associated shortness of breath and nausea. She denies associated fever, chills, vomiting, diarrhea, constipation lower extremity edema, diaphoresis, cough, headache or rash. In the ER she was noted to have an elevated initial troponin T of 95 ng/L with a CXR that revealed sequela of COPD without an acute cardiopulmonary abnormality with the ER physician then contacting regional sales associate on-call who recommended IV heparin and patient be admitted to the hospitalist service to the PCU for ongoing care for stay that is expected to extend beyond 2 midnights. [facility] Medical History CHF (congestive heart failure) Home Medications ???Medication ???Instructions ???Recorded ???Last Taken ???Type aspirin 81 mg chewable tablet 81 mg PO DAILY@0800 heart 01/18/18 Unknown History levothyroxine 88 mcg tablet 88 mcg PO DAILY thyroid 01/18/18 0 04/09/25 History cholecalciferol (vitamin D3) 25 25 mcg PO DAILY Supplement 9 04/09/25 History mcg (1,000 unit) capsule labetalol 200 mg tablet 100 mg PO BID Blood pressure 10/1604/09/25 History melatonin 5 mg capsule 5 mg PO QHS Sleep 10/16/19 5 History clonidine 0.1 mg/24 hr weekly 1 patch transdermal QWEEK 11/06/23 04/09/25 History transdermal patch Hypertension furosemide 20 mg tablet 20 mg PO .COMPLEX Diuretic 4 04/09/25 History ondansetron 4 mg disintegrating 4 mg PO Q8H PRN PRN Nausea #10 tab s 11/06/23 Unknown Rx tablet indapamide 1.25 mg tablet 1.25 mg PO DAILY Vlood pressure 04/09/25 History minoxidil 2.5 mg tablet 2.5 mg PO DAILY Hair 04/09/25 Unkn own History nitroglycerin 0.4 mg sublingual 0.4 mg sublingual PRN Chest pain 0 04/09/25 Unknown History tablet Allergy/AdvReac Type Severity Reaction Status Date / Time iron Allergy Unknown Verified 04/09/25 18:49 pentazocine (From [employer]) Allergy Other Verified 04/09/25 18:49 scopolamine Allergy Other Verified 04/09/25 18:49 Family History no significant family his Social History Smoking Status: Former smoker ROS ROS Narrative Review of Systems: Constitutional: Patient denies fever or chills. Eyes: Patient denies changes in vision or discharge from eyes. ENT: Patient denies runny nose, sore throat or ear pain. Resp: Patient denies shortness of breath or cough. CV: Patient admits to chest pain that is pressure-like, substernal and nonradiating with nothing seeming to make the pain better or worse as per HPI. GI: Patient admits to nausea but she denies vomiting, diarrhea or constipation. : Patient denies dysuria or hematuria. MSK: Patient denies arthralgias or myalgias. Skin: Patient denies rash, abscess, wounds or jaundice. Psych: Patient denies symptoms uncontrolled depression or anxiety. Neuro: Patient denies headache, paresthesias or focal neurologic deficits. Allergy: Patient denies lip swelling, tongue swelling or urticaria. Hematology: Patient denies easy bleeding or easy bruisability. Endocrinology: Patient denies polyuria, polydipsia, polyphagia or heat/cold intolerance. 14 point ROS otherwise negative several positives noted above in HPI. Vital Signs Vital Signs Vital Signs: 04/09/25 18:49 04/09/25 19:49 04/09/25 20:00 Temperature 96.7 F L Temperature Source Temporal Pulse Rate 73 64 65 Respiratory Rate 14 15 Blood Pressure 165/81 H 167/72 H 167/72 H Blood Pressure M (more content not included)... Normal [facility] Hematocrit Auto (Bld) [Volum e fraction]Ordered By: ED PROVIDER on 04-09-2025 Hematocrit (Bld) [Volume fraction] 37.2 % 37-47 [facility] Hemoglobin measurementOrdere d By: ED PROVIDER on 04-09-2025 Hemoglobin (Bld) [Mass/Vol] 12.4 g/dL 12.0-15.0 [facility] Immature granulocytes/100 WB C Auto (Bld)Ordered By: ED PROVIDER on 04-09-2025 Immature granulocytes/100 WBC (Bld) 0.200 % 0.0-0.9 [facility] Comment on above: IG% - Immature Granu locytes (promyelocytes, myelocytes and metamyelocytes) > 1% indicates that a LEFT SHIFT is Present. International normalized rat io (INR) calculationOrdered By: Serge Mcmullen on 04-09-2025 INR Coag (Bld) [Relative time] 1.0 {INR} [facility] L499.0042on 04-09-2025 Trop T High Sen 86 ng/L Invalid Interpretation Code <=14 [facility] Comment on above: Result Comment: Crit ical Result(s) Called at: 2207 TO Fannie GONZALEZ by:??Luke Qureshi. Results read back by same. Performed By: #### L 499.0042 ####[facility] [address] [place], [address] L501.4021on 04-09-2025 Trop T High Sen 95 ng/L Invalid Interpretation Code <=14 [facility] Comment on above: Result Comment: Crit ical Result(s) Called at: 2109 to [place] by:??homa. Results read back by same. Performed By: #### L 500.2500, L100.0100, L501.4021 ####[facility] [address] [place], [place], [address] L503.7505on 04-09-2025 Natriuretic peptide B (Bld) [Mass/Vol] 828 pg/mL Normal <=1800 [facility] Comment on above: Result Comment: Hear t Failure Unlikely: < 300 pg/mL Heart Failure Likely < 50 Years: > 450 pg/mL 50-75 Years: > 900 pg/mL >75 Years: > 1800 pg/mL Performed By: #### L 503.7505 #### [facility] Laboratory [address] [place], [address] MCV (mean corpuscular volume ) determinationOrdered By: ED PROVIDER on 04-09-2025 MCV (RBC) [Entitic vol] 94.2 fL 81-99 [facility] Mean corpuscular hemoglobin (MCH) determinationOrdered By: ED PROVIDER on 04-09-2025 MCH (RBC) [Entitic mass] 31.4 pg 27.0-32.0 [facility] Mean corpuscular hemoglobin concentration (MCHC) determinationOrdered By: ED PROVIDER on 04-09-2025 MCHC (RBC) [Mass/Vol] 33.3 g/dL 32-36 [facility] Mean platelet volume determi nationOrdered By: ED PROVIDER on 04-09-2025 Platelet mean volume (Bld) [Entitic vol] 9.7 fL 6.2-12.0 [facility] Monocyte percentageOrdered B y: ED PROVIDER on 04-09-2025 Monocytes/100 WBC (Bld) 12.7 % High 0-10 [facility] Natriuretic peptide.B prohor sarbjit N-Terminal [Mass/volume] in Serum or PlasmaOrdered By: Serge Mcmullen on 04-09-2025 Natriuretic peptide.B prohormone N-Terminal [Mass/Vol] 828 pg/mL <1800 [facility] Comment on above: Heart Failure Unlike ly: < 300 pg/mLHeart Failure Likely< 50 Years: > 450 pg/mL50-75 Years: > 900 pg/mL>75 Years: > 1800 pg/mL Neutrophil percentageOrdered By: ED PROVIDER on 04-09-2025 Neutrophils/100 WBC (Bld) 49.3 % 47-70 [facility] Nucleated red blood cell per centageOrdered By: ED PROVIDER on 04-09-2025 Nucleated RBC/100 WBC (Bld) [Ratio] 0 % 0-5 [facility] Partial Thromboplast Timeon 04-09-2025 aPTT Coag (Bld) [Time] 28.4 s Normal 24.1-36.2 [facility] Comment on above: Performed By: #### L 300.3900, L300.4310 ####[facility] [address] [place], [address] Platelet countOrdered By: ED PROVIDER on 04-09-2025 Platelets (Bld) [#/Vol] 216 10*3/uL 150-450 [facility] Potassium measurement (mass/ volume)Ordered By: ED PROVIDER on 04-09-2025 Potassium (Unsp spec) [Mass/Vol] 4.7 mmol/L 3.3-5.1 [facility] Prothrombin Time w/INRon INR Coag (PPP) [Relative time] 1.0 {INR} Normal [facility] Comment on above: Performed By: #### L 300.3900, L300.4310 ####[facility] [address] [place], [address] PT Coag (PPP) [Time] 13.6 s Normal 11.7-14.9 [facility] Comment on above: Performed By: #### L 300.3900, L300.4310 ####[facility] [address] [place], [address] Prothrombin timeOrdered By: Serge Mcmullen on 04-09-2025 PT Coag (PPP) [Time] 13.6 s 11.7-14.9 [facility] RBC Auto (Bld) [#/Vol]Ordere d By: ED PROVIDER on 04-09-2025 RBC (Bld) [#/Vol] 3.95 10*6/uL Low 4.2-5.4 [facility] Serum creatinine measurement (mass/volume)Ordered By: ED PROVIDER on 04-09-2025 Creatinine [Mass/Vol] 1.54 mg/dL High 0.70-1.20 [facility] Serum glucose measurement (m ass/volume)Ordered By: ED PROVIDER on 04-09-2025 Glucose [Mass/Vol] 98 mg/dL 70-99 [facility] Serum or plasma calcium ashley urement (mass/volume)Ordered By: ED PROVIDER on 04-09-2025 Calcium [Mass/Vol] 9.5 mg/dL 7.6-11.0 [facility] Serum or plasma urea nitroge n measurement (mass/volume)Ordered By: ED PROVIDER on 04-09-2025 Urea nitrogen [Mass/Vol] 31 mg/dL High 4-19 [facility] Sodium levelOrdered By: ED Froylan LOVELACE on 04-09-2025 Sodium [Moles/Vol] 138 mmol/L 133-145 [facility] Troponin T.cardiac [Mass/vol ume] in Serum or Plasma by High sensitivity methodOrdered By: Serge Mcmullen on 04-09-2025 Troponin T.cardiac High sensitivity method [Mass/Vol] 88 ng/L High <14 [facility] Comment on above: Critical Result(s) C alled at:0020 by: HOLLY JUAREZ TO RAHEL GONZALEZ Results read back by same. Troponin T.cardiac High sensitivity method [Mass/Vol] 86 ng/L High <14 [facility] Comment on above: Critical Result(s) C alled at: 2208 TO Fannie GONZALEZ by: Luke Qureshi. Results read back by same. Troponin T.cardiac High sensitivity method [Mass/Vol] 95 ng/L High <14 [facility] Comment on above: Critical Result(s) C alled at: 2110 to [place] by: homa. Results read back by same. White blood cell (WBC) count Ordered By: ED PROVIDER on 04-09-2025 WBC (Bld) [#/Vol] 5.7 10*3/uL 4.4-11.0 [facility] CNPNon 04-04-2025 CNPN Telephone ([facility]) ZENAIDA EVANS ([id number]) 1935 F Date Time Provider Department 04/04/25 MICHELE TAIROSIE CARD CHF GEOFFREY During your visit today, we recorded the following information about you: Divine Cleary 04/04/2025 8:49 AM Signed This form is used for MAIN CAMPUS APPOINTMENTS ONLY. Is this request for a Main [place] PET scan appointment? Yes: Engagement Specialist: Divine Calabrese Who do we call to schedule this appointment? Patient Requesting Staff [phone] Area Code + Phone/Pager: N/A PET Orders [...] day/next day medically urgent scans please call [phone] to expedite Send requests to P CARDIAC PET MD Dee Gonzalez RN 04/04/2025 9:38 AM Signed Preliminary Approval [...] to ordering physician and to P PET TECHNICAL SUPPORT INTERN with recommendations. If all recommended orders are present route to P PET TECHNICAL SUPPORT INTERN Eron Thakkar 04/05/2025 8:24 AM Signed 04/05 1st attempt Leatha Singh 04/09/2025 3:37 PM Signed PT SCHEDULED 05/24 AT Allergies As of Date: 04/04/2025 Noted Allergy [...] Assessed Reason for Visit: Nm Pet Request [[id number]] Prescriptions as of 04/09/2025 - indapamide (LOZOL) 2.5 mg tablet Take [...] disturbance, unspecified [G47.9] 08/26/2007 01/09/2016 URINARY CALCULUS (more content not included)... Normal [facility] CNOVon 04-03-2025 CNOV Office Visit (BRAVO REA MAI) ZENAIDA EVANS ([id number]) 1935 F Date Time Provider Department 04/03/25 11:30 AM PAUL BAUTISTA MAI During your visit today, we recorded the following information about you: Pulse Respiration Blood pressure Weight 67/minute 15/minute 168/89 58.5 kg Height 1.689 m Paul Bautista MD 04/03/2025 12:45 PM Signed [facility] SECTION OF HEART FAILURE and CARDIAC TRANSPLANT MEDICINE OUTPATIENT VISIT DATE April 03, 2025 OUTPATIENT VISIT TYPE Established Patient PRIMARY CARE PHYSICIAN: Susannah Clemente [address] [place] [address] CHIEF COMPLAINT: Shortness of breath and chest [...] 03/13/2011 no retinopathy detected -both eyes - [facility] - return in 1 year - Dr. [...] CAROL, du (more content not included)... 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 Clemente'jina in basket, please sign Susannah Clemente MD 04/05/2025 3:57 PM Signed This is an application to a wellness program at [facility]. I see that her Doper Operator has ordered a stress test and I would have to defer to him if there are any limitations after we receive results of the stress test. Tara Orona MA 04/05/2025 4:03 PM Signed Placed form in pending paper slot above JOAN''s desk Tere Londono 04/12/2025 3:00 PM Signed [facility] returned call and message read. Expressed understanding Allergies As of Date: 04/02/2025 Noted Allergy [...] Assessed Reason for Visit: Forms [913] Cmt: [facility] Prescriptions as of 04/12/2025 - indapamide (LOZOL) 2.5 mg tablet Take [...] Cancer [C50.919] 10/13/2011 01/08/2023 hx of breast ca (more content not included)... Normal [facility] CNOVon 03-27-2025 CNOV Office Visit (INTM[facility] ) ZENAIDA EVANS ([id number]) 1935 F Date Time Provider Department 03/27/25 3:50 PM SUSANNAH CLEMENTE During your visit today, we recorded the following information about you: Temperature Pulse Blood pressure Weight 97.6 degrees 62/minute 149/81 60.4 kg Height 1.676 m Susannah Clemente MD 03/27/2025 5:41 PM Signed Zenaida Evans is a 89 year old female here for a Medicare wellness visit. Recording using Segment software for draft documentation of the visit was discussed with the patient/authorized sales representative leather goods; all questions welcomed and answered. Patient/authorized sales representative leather goods agreed to proceed Zenaida Evans is a [...] and difficulty walking during a meeting in [facility]. A stress test was performed in July following this event, which showed her heart rate only reached 79% of the maximum, but no ischemia was detected. She has a follow-up appointment with her regional sales associate, Dr. Bautista, next week and an echocardiogram [...] Manning hand Alicia Hylton, Breast Psychology Abena Jill when daughter was sick [facility] Medical/Family history review Reviewed and updated problem list, medical/surgical/famil (more content not included)... Normal [facility] Basic metabolic 2000 panelon 02-01-2025 Anion gap [Moles/Vol] 7 mmol/L Low 8-15 [facility] Comment on above: Order Comment: Speci men Type: BLOOD SPECIMEN Ordering Facility: [facility] Address: [address] [place] [address] Performed By: #### 2 4321-2 #### [facility] CLIA [id number] [address] [place] [address] [place] Calcium [Mass/Vol] 9.9 mg/dL Normal 8.5-10.2 [facility] [facility] Comment on above: Order Comment: Speci men Type: BLOOD SPECIMEN Ordering Facility: [facility] Address: [address] [place] [address] Performed By: #### 2 4321-2 #### [facility] CLIA [id number] [address] [place] [address] [place] Chloride [Moles/Vol] 104 mmol/L Normal 98-107 [facility] Comment on above: Order Comment: Speci men Type: BLOOD SPECIMEN Ordering Facility: [facility] Address: [address] [place] [address] Performed By: #### 2 4321-2 #### [facility] CLIA [id number] [address] [place] [address] [place] CO2 [Moles/Vol] 28 mmol/L Normal 22-30 [facility] Comment on above: Order Comment: Speci men Type: BLOOD SPECIMEN Ordering Facility: [facility] Address: [address] [place] [address] Performed By: #### 2 4321-2 #### [facility] CLIA [id number] [address] [place] [address] [place] Creatinine [Mass/Vol] 1.38 mg/dL High 0.58-0.96 [facility] Comment on above: Order Comment: Speci men Type: BLOOD SPECIMEN Ordering Facility: [facility] Address: [address] [place] [address] Performed By: #### 2 4321-2 #### [facility] CLIA [id number] [address] [place] [address] [place] Creatinine and Glomerular filtration rate.predicted panel (S/P/Bld) 37 mL/min/1.73m??? Low >=60 [facility] Comment on above: Order Comment: Speci men Type: BLOOD SPECIMEN Ordering Facility: [facility] Address: [address] [place] [address] Result Comment: Marya mated Glomerular Filtration Rate [...] actual GFR. Performed By: #### 2 4321-2 #### [facility] CLIA [id number] [address] [place] [address] [place] Glucose [Mass/Vol] 102 mg/dL High 74-99 [facility] Comment on above: Order Comment: Speci men Type: BLOOD SPECIMEN Ordering Facility: [facility] Address: [address] [place] [address] Result Comment: The [place] [employer] (ADA) provides guidance for cutoff [...] Standards of Medical Care in Diabetes 2016, [place] [employer]. Diabetes Care. 2016.39(Suppl 1). Performed By: #### 2 4321-2 #### [id number] [address] [place] [address] [place] Potassium [Moles/Vol] 4.7 mmol/L Normal 3.7-5.1 [facility] Comment on above: Order Comment: Ledy pablo Type: BLOOD SPECIMEN Ordering Facility: [facility] Address: [address] [place] [address] Performed By: #### 2 4321-2 #### [facility] [id number] [address] [place] [address] [place] Sodium [Moles/Vol] 139 mmol/L Normal 136-144 [facility] Comment on above: Order Comment: Ledy pablo Type: BLOOD SPECIMEN Ordering Facility: [facility] Address: [address] [place] [address] Performed By: #### 2 4321-2 #### [facility] [id number] [address] [place] [address] [place] Urea nitrogen [Mass/Vol] 43 mg/dL High 7-21 [facility] Comment on above: Order Comment: Ledy pablo Type: BLOOD SPECIMEN Ordering Facility: [facility] Address: [address] [id number] Performed By: #### 2 4321-2 #### [facility] CLIA [id number] [address] [place] [address] [place] CBC W Auto Differential pane l (Bld)on 02-01-2025 Basophils (Bld) [#/Vol] 10*3/uL Normal <0.11 [facility] Comment on above: Order Comment: Speci men Type: BLOOD SPECIMENOrdering Facility: [facility] Address: [address] [place] [address] Performed By: #### 5 7021-8 ####[facility] [id number] [place] [address] [place] Basophils/100 WBC (Bld) 0.5 % Normal [facility] Comment on above: Order Comment: Speci men Type: BLOOD SPECIMENOrdering Facility: [facility] Address: [address] [place] [address] Performed By: #### 5 7021-8 ####[facility] [id number] [place] [address] [place] Differential cell count method Nom (Bld) Auto Normal [facility] Comment on above: Order Comment: Speci men Type: BLOOD SPECIMENOrdering Facility: [facility] Address: [address] [place] [address] Performed By: #### 5 7021-8 ####[facility] [id number] [place] [address] [place] Eosinophils (Bld) [#/Vol] 0.06 10*3/uL Normal <0.46 [facility] Comment on above: Order Comment: Speci men Type: BLOOD SPECIMENOrdering Facility: [facility] Address: [address] [place] [address] Performed By: #### 5 7021-8 ####[facility] [id number] [place] [address] [place] Eosinophils/100 WBC (Bld) 1.4 % Normal [facility] Comment on above: Order Comment: Speci men Type: BLOOD SPECIMENOrdering Facility: [facility] Address: [address] [place] [address] Performed By: #### 5 7021-8 ####[facility] [id number] [place] [address] [place] Erythrocyte distribution width (RBC) [Ratio] 12.8 % Normal 11.5-15.0 [facility] Comment on above: Order Comment: Speci men Type: BLOOD SPECIMENOrdering Facility: [facility] Address: [address] [place] [address] Performed By: #### 5 7021-8 ####[facility] [id number] [place] [address] [place] Hematocrit (Bld) [Volume fraction] 33.2 % Low 36.0-46.0 [facility] Comment on above: Order Comment: Speci men Type: BLOOD SPECIMENOrdering Facility: [facility] Address: [address] [place] [address] Performed By: #### 5 7021-8 ####[facility] [id number] [place] [address] [place] Hemoglobin (Bld) [Mass/Vol] 11.0 g/dL Low 11.5-15.5 [facility] Comment on above: Order Comment: Speci men Type: BLOOD SPECIMENOrdering Facility: [facility] Address: [address] [place] [address] Performed By: #### 5 7021-8 ####[facility] [id number] [place] [address] [place] Immature granulocytes (Bld) [#/Vol] 10*3/uL Normal <0.10 [facility] Comment on above: Order Comment: Speci men Type: BLOOD SPECIMENOrdering Facility: [facility] Address: [address] [place] [address] Performed By: #### 5 7021-8 ####[facility]THSIDENCLIA [id number] [place] [address] [place] [facility] Immature granulocytes/100 WBC (Bld) 0.2 % Normal [facility] Comment on above: Order Comment: Speci men Type: BLOOD SPECIMENOrdering Facility: [facility] Address: [address] [place] [address] Performed By: #### 5 7021-8 ####[facility]THSIDENCLIA [id number] [place] [address] [place] Lymphocytes (Bld) [#/Vol] 1.82 10*3/uL Normal 1.00-4.00 [facility] Comment on above: Order Comment: Speci men Type: BLOOD SPECIMENOrdering Facility: [facility] Address: [address] [place] [address] Performed By: #### 5 7021-8 ####[facility] [id number] [place] [address] [place] Lymphocytes/100 WBC (Bld) 42.4 % Normal [facility] Comment on above: Order Comment: Speci men Type: BLOOD SPECIMENOrdering Facility: [facility] Address: [address] [place] [address] Performed By: #### 5 7021-8 ####[facility] SYSTEMLIA [id number] [place] [address] [place] MCH (RBC) [Entitic mass] 31.3 pg Normal 26.0-34.0 [facility] Comment on above: Order Comment: Speci men Type: BLOOD SPECIMENOrdering Facility: [facility] Address: [address] [place] [address] Performed By: #### 5 7021-8 ####[facility] [id number] [place] [address] [place] MCHC (RBC) [Mass/Vol] 33.1 g/dL Normal 30.5-36.0 [facility] Comment on above: Order Comment: Speci men Type: BLOOD SPECIMENOrdering Facility: [facility] Address: [address] [place] [address] Performed By: #### 5 7021-8 ####[facility]THSIDEBRYANNAA [id number] [place] [address] [place] MCV (RBC) [Entitic vol] 94.3 fL Normal 80.0-100.0 [facility] Comment on above: Order Comment: Speci men Type: BLOOD SPECIMENOrdering Facility: [facility] Address: [address] [place] [address] Performed By: #### 5 7021-8 ####[facility] [id number] [place] [address] [place] Monocytes (Bld) [#/Vol] 0.41 10*3/uL Normal <0.87 [facility] Comment on above: Order Comment: Speci men Type: BLOOD SPECIMENOrdering Facility: [facility] Address: [address] [place] [address] Performed By: #### 5 7021-8 ####[facility]THSIDEBRYANNAA [id number] [place] [address] [place] Monocytes/100 WBC (Bld) 9.6 % Normal [facility] Comment on above: Order Comment: Speci men Type: BLOOD SPECIMENOrdering Facility: [facility] Address: [address] [place] [address] Performed By: #### 5 7021-8 ####[facility] SYSTEM[facility]IA [id number] [place] [address] [place] Neutrophils (Bld) [#/Vol] 1.97 10*3/uL Normal 1.45-7.50 [facility] Comment on above: Order Comment: Speci men Type: BLOOD SPECIMENOrdering Facility: [facility] Address: [address] [place] [address] Performed By: #### 5 7021-8 ####[facility] [id number] [place] [address] [place] Neutrophils/100 WBC (Bld) 45.9 % Normal [facility] Comment on above: Order Comment: Speci men Type: BLOOD SPECIMENOrdering Facility: [facility] Address: [address] [place] [address] Performed By: #### 5 7021-8 ####[facility] [id number] [place] [address] [place] Nucleated RBC (Bld) [#/Vol] 10*3/uL Normal <0.01 [facility] Comment on above: Order Comment: Speci men Type: BLOOD SPECIMENOrdering Facility: [facility] Address: [address] [place] [address] Performed By: #### 5 7021-8 ####[facility] [id number] [place] [address] [place] Nucleated RBC/100 WBC (Bld) [Ratio] 0.0 /100 WBC Normal [facility] Comment on above: Order Comment: Speci men Type: BLOOD SPECIMENOrdering Facility: [facility] Address: [address] [place] [address] Performed By: #### 5 7021-8 ####[facility] [id number] [place] [address] [place] Platelet mean volume (Bld) [Entitic vol] 9.1 fL Normal 9.0-12.7 [facility] Comment on above: Order Comment: Speci men Type: BLOOD SPECIMENOrdering Facility: [facility] Address: [address] [id number] Performed By: #### 5 7021-8 ####[facility] JACKIENCLIA [id number] [place] [address] [place] Platelets (Bld) [#/Vol] 150 10*3/uL Normal 150-400 [facility] Comment on above: Order Comment: Speci men Type: BLOOD SPECIMENOrdering Facility: [facility] Address: [address] [place] [address] Performed By: #### 5 7021-8 ####[facility] WILLKariNCLIA [id number] [place] [address] [place] [facility] RBC (Bld) [#/Vol] 3.52 10*6/uL Low 3.90-5.20 [facility] Comment on above: Order Comment: Speci men Type: BLOOD SPECIMENOrdering Facility: [facility] Address: [address] [place] [address] Performed By: #### 5 7021-8 ####[facility]SID[facility]CLIA [id number] [place] [address] [place] [facility] [place] WBC (Bld) [#/Vol] 4.29 10*3/uL Normal 3.70-11.00 [facility] Comment on above: Order Comment: Speci men Type: BLOOD SPECIMENOrdering Facility: [facility] Address: [address] [place], [place] [address] Performed By: #### 5 7021-8 ####[facility]THSIDENCLIA [id number] [address] [place] Laurita 01-15-2025 [facility] ZENAIDA EVANS ([id number]) 1935 F Date Time Provider Department 01/15/25 SUSANNAH CLEMENTE During your visit today, we recorded the following information about you: Abdiel MacielJuliet 01/15/2025 11:06 AM Signed Tommy is calling Susannah Clemente MD today to request Orders (Medical Massage) Patient has been identified by name and birthdate. Duration of symptoms: N/A Person calling: spouse: Tommy Call patient at: [phone] (home) [phone] (cell) Was an appointment scheduled: Closing statement: Juliet Hunt Ruby Pollock PA-C 01/16/2025 8:27 AM Signed Please find [...] Comments: constipation Date Reviewed: 07/26/2024 Reviewed by: Tses Mason RN - Fully Assessed Reason for Visit: Orders [681] Cmt: Medical Massage Primary Visit Diagnosis:Chronic thoracic back pain, unspecified back pain laterality [M54.6, G89.29] Order(s):CONSULT TO MASSAGE THERAPY [[id number]] Order #: [id number]: 1 FUTURE Prescriptions as of 01/19/2025 - [...] Scar cond (more content not included)... Normal [facility] CBC W Auto Differential pane l (Bld)on 11-17-2024 Basophils (Bld) [#/Vol] 10*3/uL Normal <0.11 [facility] Comment on above: Order Comment: Speci men Type: BLOOD SPECIMENOrdering Facility: [facility] Address: [address] [place] [address] [place] [address] Performed By: #### 5 7021-8 ####[facility] MILLMOSHEWNCLIA [id number] [place] [address] [place] Basophils/100 WBC (Bld) 0.5 % Normal [facility] Comment on above: Order Comment: Speci men Type: BLOOD SPECIMENOrdering Facility: [facility] Address: [address] [place] [address] Performed By: #### 5 7021-8 ####[facility] WILLWNCLIA [id number] [place] [address] [place] Differential cell count method Nom (Bld) Auto Normal [facility] Comment on above: Order Comment: Speci men Type: BLOOD SPECIMENOrdering Facility: [facility] Address: [address] [place] [address] Performed By: #### 5 7021-8 ####[facility] WILLKariGEORGELIA [id number] [place] [address] [place] Eosinophils (Bld) [#/Vol] 0.05 10*3/uL Normal <0.46 [facility] Comment on above: Order Comment: Speci men Type: BLOOD SPECIMENOrdering Facility: [facility] Address: [address] [place] [address] Performed By: #### 5 7021-8 ####[facility] WILLKariGEORGELIA [id number] [place] [address] [place] Eosinophils/100 WBC (Bld) 1.2 % Normal [facility] Comment on above: Order Comment: Speci men Type: BLOOD SPECIMENOrdering Facility: [facility] Address: [address] [place] [address] Performed By: #### 5 7021-8 ####[facility] WILLMORENO VALLEYNCLIA [id number] [place] [address] [place] Erythrocyte distribution width (RBC) [Ratio] 13.1 % Normal 11.5-15.0 [facility] Comment on above: Order Comment: Speci men Type: BLOOD SPECIMENOrdering Facility: [facility] Address: [address] [place] [address] Performed By: #### 5 7021-8 ####[facility]THSIDENCLIA [id number] [place] [address] [place] Hematocrit (Bld) [Volume fraction] 33.8 % Low 36.0-46.0 [facility] Comment on above: Order Comment: Speci men Type: BLOOD SPECIMENOrdering Facility: [facility] Address: [address] [place] [address] Performed By: #### 5 7021-8 ####[facility]THSIDENCLIA [id number] [place] [address] [place] Hemoglobin (Bld) [Mass/Vol] 11.4 g/dL Low 11.5-15.5 [facility] Comment on above: Order Comment: Speci men Type: BLOOD SPECIMENOrdering Facility: [facility] Address: [address] [place] [address] Performed By: #### 5 7021-8 ####[facility]THSIDENCLIA [id number] [place] [address] [place] Immature granulocytes (Bld) [#/Vol] 10*3/uL Normal <0.10 [facility] Comment on above: Order Comment: Speci men Type: BLOOD SPECIMENOrdering Facility: [facility] Address: [address] [place] [address] Performed By: #### 5 7021-8 ####[facility]THSIDENCLIA [id number] [place] [address] [place] Immature granulocytes/100 WBC (Bld) 0.2 % Normal [facility] Comment on above: Order Comment: Speci men Type: BLOOD SPECIMENOrdering Facility: [facility] Address: [address] [place] [address] Performed By: #### 5 7021-8 ####[facility] MILLTOWNCLIA [id number] [place] [address] [place] Lymphocytes (Bld) [#/Vol] 1.92 10*3/uL Normal 1.00-4.00 [facility] Comment on above: Order Comment: Speci men Type: BLOOD SPECIMENOrdering Facility: [facility] Address: [address] [place] [address] Performed By: #### 5 7021-8 ####[facility]ITALWNCLIA [id number] [place] [address] [place] Lymphocytes/100 WBC (Bld) 46.4 % Normal [facility] Comment on above: Order Comment: Speci men Type: BLOOD SPECIMENOrdering Facility: [facility] Address: [address] [place] [address] Performed By: #### 5 7021-8 ####[facility]THSIDENCLIA [id number] [place] [address] [place] MCH (RBC) [Entitic mass] 32.0 pg Normal 26.0-34.0 [facility] Comment on above: Order Comment: Speci men Type: BLOOD SPECIMENOrdering Facility: [facility] Address: [address] [place] [address] Performed By: #### 5 7021-8 ####[facility] MILLWNCLIA [id number] [place] [address] [place] MCHC (RBC) [Mass/Vol] 33.7 g/dL Normal 30.5-36.0 [facility] Comment on above: Order Comment: Speci men Type: BLOOD SPECIMENOrdering Facility: [facility] Address: [address] [place] [address] Performed By: #### 5 7021-8 ####[facility] [id number] [place] [address] [place] MCV (RBC) [Entitic vol] 94.9 fL Normal 80.0-100.0 [facility] Comment on above: Order Comment: Speci men Type: BLOOD SPECIMENOrdering Facility: [facility] Address: [address] [place] [address] Performed By: #### 5 7021-8 ####[facility] [id number] [place] [address] [place] Monocytes (Bld) [#/Vol] 0.52 10*3/uL Normal <0.87 [facility] Comment on above: Order Comment: Speci men Type: BLOOD SPECIMENOrdering Facility: [facility] Address: [address] [place] [address] Performed By: #### 5 7021-8 ####[facility] [id number] [place] [address] [place] Monocytes/100 WBC (Bld) 12.6 % Normal [facility] Comment on above: Order Comment: Speci men Type: BLOOD SPECIMENOrdering Facility: [facility] Address: [address] [place] [address] Performed By: #### 5 7021-8 ####[facility] SYSTEMLIA [id number] [place] [address] [place] Neutrophils (Bld) [#/Vol] 1.62 10*3/uL Normal 1.45-7.50 [facility] Comment on above: Order Comment: Speci men Type: BLOOD SPECIMENOrdering Facility: [facility] Address: [address] [place] [address] Performed By: #### 5 7021-8 ####[facility] SYSTEML[facility] [id number] [place] [address] [place] Neutrophils/100 WBC (Bld) 39.1 % Normal [facility] Comment on above: Order Comment: Speci men Type: BLOOD SPECIMENOrdering Facility: [facility] Address: [address] [place] [address] Performed By: #### 5 7021-8 ####[facility] WILLMORENO VALLEYBRANDON [id number] [place] [address] [place] Nucleated RBC (Bld) [#/Vol] 10*3/uL Normal <0.01 [facility] Comment on above: Order Comment: Speci men Type: BLOOD SPECIMENOrdering Facility: [facility] Address: [address] [place] [address] Performed By: #### 5 7021-8 ####[facility] [id number] [place] [address] [place] Nucleated RBC/100 WBC (Bld) [Ratio] 0.0 /100 WBC Normal [facility] Comment on above: Order Comment: Speci men Type: BLOOD SPECIMENOrdering Facility: [facility] Address: [address] [place] [address] Performed By: #### 5 7021-8 ####[facility] [id number] [place] [address] [place] Platelet mean volume (Bld) [Entitic vol] 9.4 fL Normal 9.0-12.7 [facility] Comment on above: Order Comment: Speci men Type: BLOOD SPECIMENOrdering Facility: [facility] Address: [address] [place] [address] Performed By: #### 5 7021-8 ####[facility] [id number] [place] [address] [place] Platelets (Bld) [#/Vol] 159 10*3/uL Normal 150-400 [facility] Comment on above: Order Comment: Speci men Type: BLOOD SPECIMENOrdering Facility: [facility] Address: [address] [place] [address] Performed By: #### 5 7021-8 ####[facility]ITALWNCLIA [id number] [place] [address] [place] RBC (Bld) [#/Vol] 3.56 10*6/uL Low 3.90-5.20 [facility] Comment on above: Order Comment: Speci men Type: BLOOD SPECIMENOrdering Facility: [facility] Address: [address] [place], [place] [address] [address] Performed By: #### 5 7021-8 ####[facility] S[facility]THSIDENCLIA [id number] [place] [address] [place] WBC (Bld) [#/Vol] 4.14 10*3/uL Normal 3.70-11.00 [facility] Comment on above: Order Comment: Speci men Type: BLOOD SPECIMENOrdering Facility: [facility] Address: [address] [place], [place] [address] [address] Performed By: #### 5 7021-8 ####[facility] SOUTHSIDENCLIA [id number] [address] [place] CNPSharmin 11-15-2024 [facility] Telephone (INTR) ZENAIDA EVANS ([id number]) 1935 F Date Time Provider Department 11/15/24 SUSANNAH CLEMENTE During your visit today, we recorded the following information about you: Susannah Clemente MD 11/15/2024 11:30 AM Signed Recommend follow up complete blood count to keep an eye on blood counts. Order placed. Keyona Mckeon LPN 11/15/2024 5:21 PM Signed Left message for patient to return call. Message can be given upon returned call Chiloquin PssMara 11/16/2024 9:22 AM Signed Patient returned phone [...] to stage 3b chronic kidney disease (HCC) ([facility]) [N18.32, D63.1] Order(s):COMPLETE BLOOD COUNT AND DIFFERENTIAL [SQCBCDIF] Order #: [id number] FUTURE Prescriptions as of 11/16/2024 - labetalol [...] 12/02/2011 09/19/20 (more content not included)... Normal [facility] Laurita 10-24-2024 CNPN Telephone (FAMPTW) ZENAIDA EVANS ([id number]) 1935 F Date Time Provider Department 10/24/24 [...] calling: self Call patient at: at home [phone] (home) verified as best number per patient Was an appointment scheduled: No Closing statement: Results or non-symptom based questions: Thank you for calling [facility], your call will be returned within the next business day. Johana Victor [facility] Abena Peraza RN 10/24/2024 11:18 AM Signed Appt made [...] constipation Date Reviewed: 07/26/2024 Reviewed by: Tess Mason, RN - Fully Assessed Reason for Visit: [...] 06/18/2010 09/19/2020 (more content not included)... Normal [facility] SURGICAL PATHOLOGYOrdered By : Helga German on 07-28-2024 Case Report Surgical Pathology R eport Case: [id number] Authorizing Provider: Michelle Choudhary MD Collected: 07/26/2024 02:14 PM Ordering Location: Dermatology Received: 07/26/2024 07:02 PM Pathologist: Helga German MD Specimen: Skin, Shave Biopsy, A. right cheek, r/o [facility] Work Phone: Clinical History l4gmoGJuJUOss5cgNSTh bGFuZzEw QqBpRwIpFlo8VNQibxB3Egz5XENs LIqaiD9xWWDxDHpkC8ueuhIogPVt HWLyYLu3yD8ugXhcfM8iWhGgVdFq MCBIeCBvZiBOTVNDXHBhciB9 [facility] Work Phone: FINAL DIAGNOSIS w3nkgJMlGWJdjTPfEEyq MlxhbnNp BBSdnEBnH4VvnlzkUEvgCI4iPZ9w kSowsTLonDZwGADuXvKlj1hby830 pAQjs4toUCCOzzgxyQy0mGolO31f u1Z1FzayJ70kcQFtGXE3ZEHsFIFq yQVxABBuEDT9BBOirSRcK5lcRTFk SD2fmgxfLEorYLfhTGBbdDA3VFXt fBRsS3OnDGHnWRoeRQZldet3WdGz Yg5yiRZhpWqcDElrEWGcTPWpXFgj AIQcWuMaII7kE7blqmgmhtaunPZd H3joGLyxEBQqWVZmUXDlh8VjcQll ySRcOV6xM0Czj7QbrOEmYrMlYCDm rD2xaGJkVJBkqdpkYEMoEXPAW66L SkYcZQ7sIM1gENVmVYc5FkMORRzm YXJ9 [facility] Work Phone: Gross Description l8qurYOfRLTdqWBFFIO5 OXFgCY0v jRwpiYp3zEahVQHtxaO3dNMeICww w8qkFTH9v3ljacQGRjgbIOGaVV6t AKriVLXmDD7bYqWvMIOtObXnVUOz kMRqxyBnHqRqEDVnsDFgpWU9VCFr RR5gbqfmTFonBHzuEPSuljP1MTWo jGPcN5PcLWGfAZ5esnrdEDB1VVVL LvotEc7sfBCvaTxgHnBmVfTyYXVr EHPcNCRrg4ksrsIKdrdwlBn9gV6W CAFqT8KbEA7On6ykLOXwoIQaCKF6 YHksy8ktLVkmYRC2PQClQNQqLCOx RC7PVsRqLGr2BSi8LTmfImP1XMx5 MUVFTDIuWQN0ZAd5KnVpCBk9XUiq XFxuaCBcXHQgMSBcXGZsIFxcbmN9 o8czLEFuyDIpJJN1GLznr0ubJGuj PSN0HSRtEbBdWHDaSF1BHvVwCSe3 OQj7MMjiCxN6FAe6DLRZTxPaFrGo ICm5RVT7CKWhUJf6WDo9PNxMBgQp Vdn0NaN7FhM0ZxS5YTLrYEXfYROj XiGqXZTmQJHiSZwmiFVgVP9syWqg UOHkIM9WTVDlTBqbNNIoDpDlII4d C6fylogvQ9cfpnRfQfclxFJ5QUn8 onQpIQPhmeGHQbcfOFRuQH7KXHCv MQygQUi6vjCrLPFlMpObXYVgN95d f9JJb0ZcZP0OSAb6fxTvwdFTWmgv koUdCWHzD1IidwYpSAbnOTWyqy5g iDhqCUBjXJT2oFOnRJWbXZyzYA74 zvZnSzB5CA8qAIOwWdOyk3dpxnVe Y4fnBSewhJmbNgS9tkSvRzGqbKOm DkUprVU1LTUaZXXyyV4jB2KqO5ca ZW4jzNQyk2HghVmskxXmYfBHg1Yz uRn7NYC1Tm6djMNqRZPwpiZ4z04v Y4Ytm9H7cAViFyLntPZxDU8LGNUw ajSBJeeOTnNRV3OhGlJgSQnnDXFe MjQgODozNiBQTVxwYXIgDQpccGFy DV5SONRmAqBcDQUaA1teZIKmMY8X G8Kgy1DeNHktsFlaXCOur21bySMc Vu5roUItRKG1QKJyQEOcbTYaJZIS iNshgEWrJYn9FYLfESBbjKzjTJL2 YL7rPUYlCEVmiXKwDTnrO3rkQVLh LIITXwioeNsbBvJweKTxZmH1KILo iMTnWXR4PY3kzPbrDUTqF1OcU1Ve juS4AGKbtcXVQvpwXTHjVL8XSHOu MjIgDQp9 [facility] Work Phone: Performing Lab d9kezXUjFOUciUVyJcRf MDAwXGFu a4ejFMMejQKoJlQkZmDcYqZvMiae cKYvPVXiPhJif1ket123cMRcx4ii FYHaCiQ8vDSbCYBdwFWaE826WAXq JFftb5bbq6MbFMUblJJcc9X7ANFH rshkxDg6mQvhQ37gy2R9LopqZ3bl NHFyEMRjA8ByVE4jBLKdSlh8RSJ7 QFW2WTSdHZCcY6UpTH1rJOWuiJSb VHo0z0imkSjaCBJvLXM2u2jqMKnx ydJkCU3tsf9rsGa2n6fxnnQqROIy SAVdcOMWEANwH4MxsCroCj6jbZu1 qSpeHmcqRMS5Mvp1BP6xgw56kuz5 sXugMCMknqbyCaG8YKlfQMUaccfk NUe4NChbMPVxeUR1MJVrhZJvA8Db UAkbJF1qoxa2VHB2PZtaLPPqIlE9 GVMdtAEnJUZciHdrGLknb575YUT4 FrLbSX8sF2Ane7L9mA7wcNFeIKKc tONsCdHvZUZgnx0rpKKtQZgji6De WLP1rmE9cHOxoMIjWADpWI92Gdzc y5IlFthwp9JwM23qjTN7OWhxq3li VY1kUvW3fpSqCYehd9wwmX3kEuR0 YWgyGX8gPO9uROTcmE6invvcKRHc HsXprxwnUFTuoWtfzyVuZz4pgEmh GKU3DOhyY5wyzH1wInW6UAinX1fv lA5fVNn3XTimsTK4OTXglJ1xJL1m qdxnj6vcIHtlLGykAQEgypB3peFb AVEjvMKbV0RlgZ8gLBDyAE5ccapx a1smJRL5HVdkZHWxRAB5JwRjCPMe o3Knzsa2HvDhn4DbaBExAExkP56x y821EGPmfaCdM6hhcIUcohktcTBn qlitZBlslsP3MBZpGWAlFVzfZAEf XGZzMjBcbGFuZzEwMzNcaGljaFxm KNatLsItDNWmCPdaL6wlXiIvSwTf YEGObMJmfb5qyRdiSVtvrWCpqGBr dMC6nW4dAFJcanYtys8yPEXflRTH cSC5ELnsscDfI8grdsmmPKN1EMUu CCC9N6peDBLUtzIpEFTaOOWliNXr PMPJYYW5QQI2GYHxSSLSIZEtTFI0 TDX0SJHjITAntBKgBYAfumdpGBHp DBMxOEamQLZqDVXdDbErbIlblY5z IxNpHnCuTFptUQ8aFQCdE2gveYFk ZBSrBWLxH9jeHeJxvZ7voLbfQTqh ZjJcZnMyMFxsdHJjaCBMYWJvcmF0 j7J8ULokyMRiaxmpCUioohHxSGxr pbxbZJIjXFvxC0vlGbIrXLYvmUrt KYgel4JsRBTwIQNlMxCkAMblEEB8 o6N9RWqhoTQdexHBBwBPAE9esYUp pzfwGE8IFibddBCxclshTLwjlcRb QYuunvleFWZyLLslJ9wgLxLbXUCs gRsyHKqci5UkZHDkMJKzLiFusFKt fQ== [facility] Work Phone: [facility] Work Phone: STRESS ECHO TREADMILLon 10- STRESS ECHO TREADMILL Stress Identification Clerk Report: Stress Echo [facility] Date of service: 07/27/2024 10:26:06 AM MACHINE OPERATOR Supervising physician: Brandyn Moore DO PATIENT: Name: MRS. ZENAIDA EVANS Age: 89 years Gender: F The supervising physician was in the department and immediately available. Final Echocardiography Report: Stress [facility] Date of service: 07/27/2024 10:26:06 AM MACHINE OPERATOR Ordering physician: SUSANNAH CLEMENTE Indication: Shortness [...] the prior CC echocardiographic exam performed on 04/02/2023. Final Stress ECG Report: Stress Echo [facility] Date of service: 07/27/2024 10:26:06 AM MACHINE OPERATOR Ordering physician: SUSANNAH CLEMENTE auditing specialist: Thomas Escobar Interpreting physician: Brandyn Moore [...] Michael pr (more content not included)... Normal [facility] CNOVon 07-26-2024 CNOV Office Visit (DERMMN ) ZENAIDA EVANS ([id number]) 1935 F Date Time Provider Department 07/26/24 1:50 PM MICHELLE CHOUDHARY During your visit today, we recorded the following information about you: Blood pressure Weight Height 188/75 61 kg 1.676 m Michelle Choudhary MD 08/16/2024 5:22 PM Signed Est Patient LV: 02/18/23 CC: DEXTER/broderick singh Zenaida Evans is a 89 year old [...] 03/13/2011 no retinopathy detected -both eyes - [facility] - return in 1 year - Dr. [...] Abs Lymph 1.00 - 4.00 k/uL 2.24 [place]% % 14.7 Abs [place] <0.87 k/uL 0.83 Eosin% % 3.0 Abs [...] NAD, pleasant (more content not included)... Normal [facility] SURGICAL PATHOLOGYon CASE REPORT Normal [facility] Comment on above: Order Comment: Speci men Type: TISSUE SPECIMEN Ordering Facility: [facility] Address: [address] [place] [address] Result Comment: Surg ica Pathology Report Case: [id number] Authorizing Provider: Michelle Choudhary MD Collected: 07/26/2024 02:14 PM Ordering Location: Dermatology Received: 07/26/2024 07:02 PM Pathologist: Helga German MD Specimen: Skin, Shave Biopsy, A. right cheek, r/o NMSC Performed By: #### S #### [facility] CLIA [id number] [address] [place] [address] [place] [address] [place] CLINICAL HISTORY Hx of NMSC Normal [facility] Comment on above: Order Comment: Speci men Type: TISSUE SPECIMEN Ordering Facility: [facility] Address: [address] [place] [address] Performed By: #### S #### [facility] CLIA [id number] [address] [place] [address] [place] FINAL DIAGNOSIS Normal [facility] Comment on above: Order Comment: Speci men Type: TISSUE SPECIMEN Ordering Facility: [facility] Address: [address] [place] [address] Result Comment: A. S kin, right cheek, shave biopsy: - Seborrheic keratosis. MPP/NJV 07/27/24 10:52 AM Performed By: #### S #### [facility] CLIA [id number] [address] [place] [address] [place] FINAL PERFORMING LAB Normal [facility] Comment on above: Order Comment: Speci men Type: TISSUE SPECIMEN Ordering Facility: [facility] Address: [address] [place] [address] Result Comment: Diag nostic interpretation performed at [facility], [address] [place] [address] CLIA# [id number] Book Jacket Cover Machine Operator: Nino Leiva M.D. Performed By: #### S #### [facility] CLIA [id number] [address] [place] [address] [place] GROSS DESCRIPTION Normal [facility] Comment on above: Order Comment: Speci men Type: TISSUE SPECIMEN Ordering Facility: [facility] Address: [address] [place] [address] Result Comment: A. S kin, Shave Biopsy Received in formalin are three segments of mc, soft skin aggregating to 1.2 x 0.6 x < 0.1 cm. Specimen is sectioned. Totally submitted in two cassettes. [facility] July 26, 2024 8:36 PM Gross examination performed at [facility], [address] [place] [address] Performed By: #### S #### [facility] QUANG [id number] [address] [place] [address] [place] Bacteria Ur Culton [...] , Intermediate >32 , Resistant >64 Abnormal [facility] Comment on above: Performed By: #### 6 30-4 ####[facility] [id number] [place] [id number] [facility] CNOVon 07-17-2024 CNOV Office Visit (UCWSTR ) ZENAIDA EVANS ([id number]) 1935 F Date Time Provider Department 07/17/24 10:30 AM DOMINGUEZ HARKINS [facility] During your visit today, we [...] of urination [R39.15] Order(s):UA DIP, URINE (POC) [2454540] Order #: [id number]. #:[id number] URINE CULTURE [SQURCUL] Order #: [id number]. #:[id number] cephALEXin (KEFLEX) 500 mg capsuleTake (more content not included)... Normal [facility] UA DIP, URINE (POC)on 2023 BILIRUBIN UA (POCT) Small Abnormal Negative [facility] CLARITY UA (POCT) Clear [facility] COLOR UA (POCT) Gage [facility] GLUCOSE UA (POCT) 100 mg/dL Abnormal Negative [facility] Hemoglobin Ql (U) Trace-intact Abnormal Negative [facility] Interpretation and review of laboratory results Abnormal [facility] KETONE UA (POCT) Negative Negative mg/dL [facility] LEUKOCYTES UA (POCT) Large Abnormal Negative [facility] NITRITE UA (POCT) Positive Abnormal Negative [facility] PH UA (POCT) 7.0 4.5 - 8.0 [facility] Protein Ql (U) 100 mg/dL Abnormal Negative [facility] SPECIFIC GRAVITY UA (POCT) 1.020 1.005 - 1.030 [facility] UROBILINOGEN UA (POCT) 2.0 Abnormal Ophelia l E.U./dL [facility] Location:[address], [place], [place], [address] [place] [address] POINT OF CARE [facility] XR CHEST 2V FRONTAL/LATon XR CHEST [...] spine. Scoliosis. IMPRESSION: No acute radiographic abnormality. [employer] Restorer: RUDY Transcribe Date/Time: Jul 14 2024 2:10P Dictated by : MANASA CARTER MD This examination was interpreted and the report reviewed and electronically signed by: MANASA CARTER MD on Jul 14 2024 2:11PM EST [id number] Normal [facility] XR Chest PA and Lateralon IMPRESSION: No acute radiographic abnormality. [employer] Restorer: RUDY Transcribe Date/Time: Jul 14 2024 2:10P Dictated by : MANASA CARTER MD This examination was interpreted and the report reviewed and electronically signed by: MANASA CARTER MD on Jul 14 2024 2:11PM [facility] DIVISION OF RADIOLOGY * * *Final [...] the spine. Scoliosis. DIVISION OF RADIOLOGY Provider, [facility] - 07/14/2024 * * *Final Report* [...] Scoliosis. IMPRESSION IMPRESSION: No acute radiographic abnormality. [employer] Restorer: RUDY Transcribe Date/Time: Jul 14 2024 2:10P Dictated by : MANASA CARTER MD This examination was interpreted and the report reviewed and electronically signed by: MANASA CARTER MD on Jul 14 2024 2:11PM [facility] Radiology Study observation (narrative) [facility] XR Chest PA and LateralOrder ed By: Cc Provider on 07-14-2024 [facility] CNOVon 07-13-2024 CNOV Office Visit (FAMPBR ) ZENAIDA EVANS ([id number]) 1935 F Date Time Provider Department 07/13/24 2:40 PM [facility] During your visit today, we recorded the following information about you: Temperature Pulse Respiration Blood pressure 98.2 degrees 63/minute 20/minute 165/82 Weight 62.3 kg Erwin Rosales MD 07/13/2024 3:01 PM Signed This note was created using [employer]om[employer]. 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 Normal [facility] CNOVon 07-03-2024 CNOV Office Visit (INTMBR ) ZENAIDA EVANS ([id number]) 1935 F Date Time Provider Department 07/03/24 10:20 AM SUSANNAH CLEMENTE INTMBR During your visit today, we recorded the following information about you: Temperature Pulse Blood pressure Weight 97.9 degrees 74/minute 136/72 61.3 kg Susannah Clemente MD 07/03/2024 11:03 AM Signed Note created with [employer] Software: HPI The patient is a 89-year-old [...] 4.00 k/uL 1.67 1.87 1.88 1.62 2.24 [place]% % 10.5 11.3 13.1 11.6 14.7 Abs [place] <0.87 k/uL 0.46 0.50 0.50 0.53 0.83 [...] infections. Pres (more content not included)... [facility]FAMP[facility] ZENAIDA EVANS ([id number]) 1935 F Date Time Provider Department 07/03/24 [facility] During your visit today, we recorded the [...] Fully Assessed Reason for Visit: Patient Question [6851] Cmt: Nothing was available for medicare wellness [...] [C50.919] 10/13/201112/17 (more content not included)... Normal [facility] ECG COMPLETEon 07-03-2024 Atrial Rate 68 BPM [facility] Calculated P [place] 65 degrees [facility] Calculated R [place] 46 degrees [facility] Calculated T [place] 62 degrees [facility] P-R Interval 172 ms [facility] QRS Duration 80 ms [facility] QT Interval 402 ms [facility] QTC Calculation (Bazett) 427 ms [facility] Ventricular Rate 68 BPM [facility] NORMAL SINUS RHYTHM POSSIBLE LEFT ATRIAL ENLARGEMENT BORDERLINE ECG Confirmed by CHRIS SERRANO, JOSÉ MIGUEL ([id number]) on 07/03/2024 3:08:37 PM [facility] NAME : ZENAIDA EVANS PID : [id number] : 1935 Gender : Female Race : ORD : Procedure Date : Jul 03 2024 10:54:36 Edit Date : Jul 03 2024 15:08:42 Diagnosis: NORMAL SINUS RHYTHM POSSIBLE LEFT ATRIAL ENLARGEMENT BORDERLINE ECG Confirmed by JOSÉ MIGUEL PEREZ MD ([id number]) on 07/03/2024 3:08:37 PM Test Reason : Location : 156 : [facility] Overread By : JOSÉ MIGUEL PEREZ MD Edited By : JOSÉ MIGUEL PEREZ MD Referred By : DR CLEMENTE, Acquired by : , [facility] [id number] 07-03-2024 ECG01 Ventricular Rate : 6 8 BPM Atrial Rate : 68 BPM P-R Interval : 172 ms QRS Duration : 80 ms Q-T Interval : 402 ms QTC Calculation(Bazett) : 427 ms Calculated P [place] : 65 degrees Calculated R [place] : 46 degrees Calculated T [place] : 62 degrees NORMAL SINUS RHYTHM POSSIBLE LEFT ATRIAL ENLARGEMENT BORDERLINE ECG Confirmed by JOSÉ MIGUEL PEREZ MD ([id number]) on 07/03/2024 3:08:37 PM NAME : ZENAIDA EVANS PID : [id number] : 1935 Gender : Female Race : ORD : Procedure Date : Jul 03 2024 10:54:36 Edit Date : Jul 03 2024 15:08:42 Diagnosis: NORMAL SINUS RHYTHM POSSIBLE LEFT ATRIAL ENLARGEMENT BORDERLINE ECG Confirmed by JOSÉ MIGUEL PEREZ MD ([id number]) on 07/03/2024 3:08:37 PM Test Reason : Location : 156 : [facility] Overread By : JOSÉ MIGUEL PEREZ MD Edited By : JOSÉ MIGUEL PEREZ MD Referred By : DR CLEMENTE, Acquired by : , Olga [facility] Bacteria Ur Culton 4 Bacteria identified Cx [...] , Intermediate >32 , Resistant >64 Abnormal [facility] Comment on above: Performed By: #### 6 30-4 ####[facility] [id number] [address] [place] [facility] [place] 06-26-2024 CNOV Office Visit (UCWSTR ) ZENAIDA EVANS ([id number]) 1935 F Date Time Provider Department 06/26/24 4:00 PM EMILEE CRUMP [facility] During your visit today, we recorded the following information about you: Temperature Pulse Respiration Blood pressure 97.4 degrees 78/minute 16/minute 132/78 Weight 60.8 kg Emilee Crump APRN.CNP 06/26/2024 3:56 PM Signed Urinary Problem-When to [...] treated. A physician, nurse practitioner or physician family medicine physician assistant may treat with a short course [...] healthy young women if symptoms resolve. Emilee Crump APRN.CNP 06/26/2024 4:09 PM Signed Patient presents with: [...] day. ARB-ANGIOTENSIN RECEPTOR ANTAGONI*11/16/2023 15 - Contraindication-Medical Peera* Comments: Bright, hyperkalemia HCTZ (THIAZIDES) 12/15/2019 15 [...] Diagnosis:Urinary frequency [R35.0] Order(s):UA DIP, URINE (POC) [[id number]] Order #: [id number] (more content not included)... Normal [facility] UA DIP, URINE (POC)on 2023 BILIRUBIN UA (POCT) Negative Negative [facility] CLARITY UA (POCT) [facility] COLOR UA (POCT) Dark yellow [facility] GLUCOSE UA (POCT) 250 mg/dL Abnormal Negative [facility] Hemoglobin Ql (U) Moderate Abnormal Negative [facility] Interpretation and review of laboratory results Abnormal [facility] KETONE UA (POCT) Negative Negative mg/dL [facility] LEUKOCYTES UA (POCT) Small Abnormal Negative [facility] NITRITE UA (POCT) Positive Abnormal Negative [facility] PH UA (POCT) 7.0 4.5 - 8.0 [facility] Protein Ql (U) 30 mg/dL Abnormal Negative [facility] SPECIFIC GRAVITY UA (POCT) 1.020 1.005 - 1.030 [facility] UROBILINOGEN UA (POCT) 1.0 Ophelia l E.U./dL [facility] Location:[address], [place], [place], [address] [place] [address] POINT OF CARE [facility] Basic metabolic 2000 panelon 06-24-2024 Anion gap [Moles/Vol] 11 mmol/L Normal 8-15 [facility] Comment on above: Order Comment: Speci men Type: BLOOD SPECIMENOrdering Facility: [facility] Address: [address] [place] [address] [place] [address] Performed By: #### 2 4331-1, 45187-4 ####[facility] [id number] [facility] [place] [place] [address] [place] Calcium [Mass/Vol] 9.6 mg/dL Normal 8.5-10.2 [facility] Comment on above: Order Comment: Speci men Type: BLOOD SPECIMENOrdering Facility: [facility] Address: [address] [place], [place] [address] Performed By: #### 2 4331-1, 92268-3 ####[facility] [id number] [place] [id number] [place] Chloride [Moles/Vol] 106 mmol/L Normal 98-107 [facility] Comment on above: Order Comment: Speci men Type: BLOOD SPECIMENOrdering Facility: [facility] Address: [address] [place] [address] Performed By: #### 2 4331-1, 78084-1 ####[facility] [id number] [place] [address] [place] CO2 [Moles/Vol] 27 mmol/L Normal 22-30 [facility] Comment on above: Order Comment: Speci men Type: BLOOD SPECIMENOrdering Facility: [facility] Address: [address] [place] [address] Performed By: #### 2 4331-1, 55024-7 ####[facility] [id number] [place] [address] [place] Creatinine [Mass/Vol] 1.34 mg/dL High 0.58-0.96 [facility] Comment on above: Order Comment: Speci men Type: BLOOD SPECIMENOrdering Facility: [facility] Address: [address] [place] [address] Performed By: #### 2 4331-1, 75120-6 ####[facility] [id number] [place] [address] [place] Creatinine and Glomerular filtration rate.predicted panel (S/P/Bld) 38 mL/min/1.73m??? Low >=60 [facility] Comment on above: Order Comment: Speci men Type: BLOOD SPECIMENOrdering Facility: [facility] Address: [address] [place] [address] Result Comment: Marya mated Glomerular Filtration Rate [...] actual GFR. Performed By: #### 2 4331-1, 51361-7 ####[facility] [id number] [place] [address] [place] Glucose [Mass/Vol] 100 mg/dL High 74-99 [facility] Comment on above: Order Comment: Speci men Type: BLOOD SPECIMENOrdering Facility: [facility] Address: [address] [place] [address] Result Comment: The [place] Diabetes Association (ADA) provides guidance for cutoff [...] Standards of Medical Care in Diabetes 2016, [place] Diabetes Association. Diabetes Care. 2016.39(Suppl 1). Performed By: #### 2 4331-1, 44476-3 ####[facility] [id number] [place] [id number] [place] Potassium [Moles/Vol] 4.6 mmol/L Normal 3.7-5.1 [facility] Comment on above: Order Comment: Specmickie men Type: BLOOD SPECIMENOrdering Facility: [facility] Address: [address] [place] [address] Performed By: #### 2 4331-1, 90489-9 ####[facility] [id number] [place] [address] [place] Sodium [Moles/Vol] 144 mmol/L Normal 136-144 [facility] Comment on above: Order Comment: Speci men Type: BLOOD SPECIMENOrdering Facility: [facility] Address: [address] [place] [address] Performed By: #### 2 4331-1, 53173-5 ####[facility] [id number] [place] [address] [place] Urea nitrogen [Mass/Vol] 30 mg/dL High 7-21 [facility] Comment on above: Order Comment: Speci men Type: BLOOD SPECIMENOrdering Facility: [facility] Address: [address] [place] [address] Performed By: #### 2 4331-1, 99684-3 ####[facility] LABIA [id number] [place] [address] [place] CBC W Auto Differential pane l (Bld)on 06-24-2024 Basophils (Bld) [#/Vol] 0.03 10*3/uL Normal <0.11 [facility] Comment on above: Order Comment: Speci men Type: BLOOD SPECIMENOrdering Facility: [facility] Address: [address] [place] [address] Performed By: #### 5 7021-8 ####[facility] LABIA [id number] [place] [address] [place] Basophils/100 WBC (Bld) 0.5 % Normal [facility] Comment on above: Order Comment: Speci men Type: BLOOD SPECIMENOrdering Facility: [facility] Address: [address] [place] [address] Performed By: #### 5 7021-8 ####[facility] LABIA [id number] [place] [address] [place] Differential cell count method Nom (Bld) Auto Normal [facility] Comment on above: Order Comment: Speci men Type: BLOOD SPECIMENOrdering Facility: [facility] Address: [address] [place] [address] Performed By: #### 5 7021-8 ####[facility] LABCLIA [id number] [place] [address] [place] Eosinophils (Bld) [#/Vol] 0.17 10*3/uL Normal <0.46 [facility] Comment on above: Order Comment: Speci men Type: BLOOD SPECIMENOrdering Facility: [facility] Address: [address] [place] [address] Performed By: #### 5 7021-8 ####[facility] LABCLIA [id number] [place] [address] [place] Eosinophils/100 WBC (Bld) 3.0 % Normal [facility] Comment on above: Order Comment: Speci men Type: BLOOD SPECIMENOrdering Facility: [facility] Address: [address] [place] [address] Performed By: #### 5 7021-8 ####[facility] LABCLIA [id number] [place] [address] [place] Erythrocyte distribution width (RBC) [Ratio] 12.5 % Normal 11.5-15.0 [facility] Comment on above: Order Comment: Speci men Type: BLOOD SPECIMENOrdering Facility: [facility] Address: [address] [place] [address] Performed By: #### 5 7021-8 ####[facility] LABCLIA [id number] [place] [address] [place] Hematocrit (Bld) [Volume fraction] 35.9 % Low 36.0-46.0 [facility] Comment on above: Order Comment: Speci men Type: BLOOD SPECIMENOrdering Facility: [facility] Address: [address] [place] [address] Performed By: #### 5 7021-8 ####[facility] LABCLIA [id number] [place] [address] [place] Hemoglobin (Bld) [Mass/Vol] 11.3 g/dL Low 11.5-15.5 [facility] Comment on above: Order Comment: Speci men Type: BLOOD SPECIMENOrdering Facility: [facility] Address: [address] [place] [address] Performed By: #### 5 7021-8 ####[facility] LABCLIA [id number] [place] [address] [place] Immature granulocytes (Bld) [#/Vol] 10*3/uL Normal <0.10 [facility] Comment on above: Order Comment: Speci men Type: BLOOD SPECIMENOrdering Facility: [facility] Address: [address] [place] [address] Performed By: #### 5 7021-8 ####[facility] LABIA [id number] [place] [address] [place] Immature granulocytes/100 WBC (Bld) 0.4 % Normal [facility] Comment on above: Order Comment: Speci men Type: BLOOD SPECIMENOrdering Facility: [facility] Address: [address] [place] [address] Performed By: #### 5 7021-8 ####[facility] LABCLIA [id number] [place] [address] [place] Lymphocytes (Bld) [#/Vol] 2.24 10*3/uL Normal 1.00-4.00 [facility] Comment on above: Order Comment: Speci men Type: BLOOD SPECIMENOrdering Facility: [facility] Address: [address] [place] [address] Performed By: #### 5 7021-8 ####[facility] LABCLIA [id number] [place] [address] [place] Lymphocytes/100 WBC (Bld) 39.6 % Normal [facility] Comment on above: Order Comment: Speci men Type: BLOOD SPECIMENOrdering Facility: [facility] Address: [address] [place] [address] Performed By: #### 5 7021-8 ####[facility] LABCLIA [id number] [place] [address] [place] MCH (RBC) [Entitic mass] 31.3 pg Normal 26.0-34.0 [facility] Comment on above: Order Comment: Speci men Type: BLOOD SPECIMENOrdering Facility: [facility] Address: [address] [place] [address] Performed By: #### 5 7021-8 ####[facility] LABCLIA [id number] [place] [address] [place] MCHC (RBC) [Mass/Vol] 31.5 g/dL Normal 30.5-36.0 [facility] Comment on above: Order Comment: Speci men Type: BLOOD SPECIMENOrdering Facility: [facility] Address: [address] [place] [address] Performed By: #### 5 7021-8 ####[facility] LABCLIA [id number] [place] [address] [place] MCV (RBC) [Entitic vol] 99.4 fL Normal 80.0-100.0 [facility] Comment on above: Order Comment: Speci men Type: BLOOD SPECIMENOrdering Facility: [facility] Address: [address] [place] [address] Performed By: #### 5 7021-8 ####[facility] LABCLIA [id number] [place] [address] [place] Monocytes (Bld) [#/Vol] 0.83 10*3/uL Normal <0.87 [facility] Comment on above: Order Comment: Speci men Type: BLOOD SPECIMENOrdering Facility: [facility] Address: [address] [place] [address] Performed By: #### 5 7021-8 ####[facility] LABCLIA [id number] [place] [address] [place] Monocytes/100 WBC (Bld) 14.7 % Normal [facility] Comment on above: Order Comment: Speci men Type: BLOOD SPECIMENOrdering Facility: [facility] Address: [address] [place] [address] Performed By: #### 5 7021-8 ####[facility] LABCLIA [id number] [place] [address] [place] Neutrophils (Bld) [#/Vol] 2.37 10*3/uL Normal 1.45-7.50 [facility] Comment on above: Order Comment: Speci men Type: BLOOD SPECIMENOrdering Facility: [facility] Address: [address] [place] [address] Performed By: #### 5 7021-8 ####[facility] LABCLIA [id number] [place] [address] [place] Neutrophils/100 WBC (Bld) 41.8 % Normal [facility] Comment on above: Order Comment: Speci men Type: BLOOD SPECIMENOrdering Facility: [facility] Address: [address] [place] [address] Performed By: #### 5 7021-8 ####[facility] LABCLIA [id number] [place] [address] [place] Nucleated RBC (Bld) [#/Vol] 10*3/uL Normal <0.01 [facility] Comment on above: Order Comment: Speci men Type: BLOOD SPECIMENOrdering Facility: [facility] Address: [address] [place] [address] Performed By: #### 5 7021-8 ####[facility] LABCLIA [id number] [place] [address] [place] Nucleated RBC/100 WBC (Bld) [Ratio] 0.0 /100 WBC Normal [facility] Comment on above: Order Comment: Speci men Type: BLOOD SPECIMENOrdering Facility: [facility] Address: [address] [place] [address] Performed By: #### 5 7021-8 ####[facility] LABCLIA [id number] [place] [address] [place] Platelet mean volume (Bld) [Entitic vol] 10.8 fL Normal 9.0-12.7 [facility] Comment on above: Order Comment: Speci men Type: BLOOD SPECIMENOrdering Facility: [facility] Address: [address] [place] [address] Performed By: #### 5 7021-8 ####[facility] LABCLIA [id number] [place] [address] [place] Platelets (Bld) [#/Vol] 172 10*3/uL Normal 150-400 [facility] Comment on above: Order Comment: Speci men Type: BLOOD SPECIMENOrdering Facility: [facility] Address: [address] [place] [address] Performed By: #### 5 7021-8 ####[facility] LABIA [id number] [place] [address] [place] RBC (Bld) [#/Vol] 3.61 10*6/uL Low 3.90-5.20 [facility] Comment on above: Order Comment: Speci men Type: BLOOD SPECIMENOrdering Facility: [facility] Address: [address] [place] [address] Performed By: #### 5 7021-8 ####[facility] LABCLIA [id number] [place] [address] [place] WBC (Bld) [#/Vol] 5.66 10*3/uL Normal 3.70-11.00 [facility] Comment on above: Order Comment: Speci men Type: BLOOD SPECIMENOrdering Facility: [facility] Address: [address] [place] [address] Performed By: #### 5 7021-8 ####[facility] LABCLIA [id number] [place] [address] [place] Lipid 1996 panelon 4 Cholesterol [Mass/Vol] 194 mg/dL Normal <200 [facility] Comment on above: Order Comment: Speci men Type: BLOOD SPECIMENOrdering Facility: [facility] Address: [address] [place] [address] Result Comment: <200 mg/dL, Desirable 200-239 mg/dL, Borderline high >239 mg/dL, High Performed By: #### 2 4331-1, 36205-3 ####[facility] LABCLIA [id number] [place] [address] [place] Cholesterol in HDL [Mass/Vol] 78 mg/dL Normal >39 [facility] Comment on above: Order Comment: Speci men Type: BLOOD SPECIMENOrdering Facility: [facility] Address: [address] [place] [address] Result Comment: 40-5 9 mg/dL, Acceptable >59 mg/dL, High: Negative risk factor for coronary heart disease <40 mg/dL, Low: Positive risk factor for coronary heart disease Performed By: #### 2 4331-1, 68645-4 ####[facility] LABCLIA [id number] [address] [place] Cholesterol in LDL [Mass/Vol] 99 mg/dL Normal <100 [facility] Comment on above: Order Comment: Speci men Type: BLOOD SPECIMENOrdering Facility: [facility] Address: [address] [place] [address] Result Comment: <100 mg/dL, Optimal 100-129 mg/dL, Near optimal/above optimal 130-159 mg/dL, Borderline high 160-189 mg/dL, High >189 mg/dL, Very high Secondary prevention optimal LDL Cholesterol levels are recommended to be < 70 mg/dL Performed By: #### 2 4331-1, 35178-0 ####[facility] LABCLIA [id number] [place] [address] [place] Cholesterol in LDL/Cholesterol in HDL [Mass ratio] 1.27 {ratio} Normal <2.54 [facility] Comment on above: Order Comment: Ledy men Type: BLOOD SPECIMENOrdering Facility: [facility] Address: [address] [place] [address] Result Comment: Refe rence: 1. National Cholesterol Education Program ATP III Guideline At-A-Glance Quick Desk Reference: National Heart, Lung, and Blood Roulette. National Institutes of Health. 2001: NIH Publication No. 01-3305. 2. An International Atherosclerosis Society position paper: global recommendations for the management of dyslipidemia: executive summary, Atherosclerosis. 2014: 232(2):410-413. Performed By: #### 2 4331-1, 30826-3 ####[facility] LABIA [id number] [place] [address] [place] Cholesterol in VLDL [Mass/Vol] 17 mg/dL Normal <30 [facility] Comment on above: Order Comment: Ledy pablo Type: BLOOD SPECIMENOrdering Facility: [facility] Address: [address] [place] [address] Performed By: #### 2 4331-1, 15728-9 ####[facility] LABIA [id number] [place] [address] [place] Cholesterol non HDL [Mass/Vol] 116 mg/dL Normal <130 [facility] Comment on above: Order Comment: Ledy pablo Type: BLOOD SPECIMENOrdering Facility: [facility] Address: [address] [place] [address] Result Comment: <130 mg/dL, Optimal 130-159 mg/dL, Near optimal/above optimal 160-189 mg/dL, Borderline high 190-219 mg/dL, High >219 mg/dL, Very high Secondary prevention optimal non HDL Cholesterol levels are recommended to be <100 mg/dL Performed By: #### 2 4331-1, 99804-0 ####[facility] LABCLIA [id number] [place] [address] [place] Cholesterol.total/Chol esterol in HDL [Mass ratio] 2.49 {ratio} Normal <5.10 [facility] Comment on above: Order Comment: Speci men Type: BLOOD SPECIMENOrdering Facility: [facility] Address: [address] [place] [address] Performed By: #### 2 4331-1, 04939-3 ####[facility] LABCLIA [id number] [place] [address] [place] FASTING TIME 12 hrs Normal [facility] Comment on above: Order Comment: Speci men Type: BLOOD SPECIMENOrdering Facility: [facility] Address: [address] [place] [address] Performed By: #### 2 4331-1, ####[facility] LABCLIA [id number] [place] [address] [place] Triglyceride [Mass/Vol] 84 mg/dL Normal <150 [facility] Comment on above: Order Comment: Speci men Type: BLOOD SPECIMENOrdering Facility: [facility] Address: [address] [place] [address] Result Comment: <150 mg/dL, Normal 150-199 mg/dL, Borderline high 200-499 mg/dL, High >499 mg/dL, Very high Performed By: #### 2 4331-1, 74729-7 ####[facility] LABCLIA [id number] [place] [address] [place] CNOVon 06-11-2024 CNOV Office Visit (UCWSTR ) ZENAIDA EVANS ([id number]) 1935 F Date Time Provider Department 06/11/24 12:30 PM KELSI ZAVALA [facility] During your visit today, we recorded the following information about you: Temperature Pulse Respiration Blood pressure 97.1 degrees 70/minute 20/minute 176/85 Weight 59 kg Kelsi Zavala APRN.NARROW GAUGE OPERATOR 06/11/2024 1:28 PM Signed This note was created using NoteWriter. Subjective Zenaida Evans is a 89 year [...] history is provided by the patient. No speech/language therapist was used. Rash This is a new [...] Comment: no retinopathy detected -both eyes - [facility] - return in 1 year [...] (LONITEN) 2.5 (more content not included)... Normal [facility] DBT Breast - bilateral beckie paula 01-10-2024 * * *Final Report* * * DATE OF EXAM: Jan 07 2024 11:25AM [facility]W 0582 - [facility] SCREENING W MICHELLE / PROCEDURE REASON: Encounter for screening mammogram for breast cancer * * * * Physician Interpretation * * * * RESULT: #[id number] - NICOLE SCREENING W MICHELLE BILATERAL DIGITAL [...] in either breast. [facility] * * *Final Report* * * DATE OF EXAM: Jan 07 2024 11:25AM SSW 0582 - [facility] SCREENING W MICHELLE / PROCEDURE REASON: Encounter for screening mammogram for breast cancer * * * * Physician Interpretation * * * * RESULT: #[id number] - NICOLE SCREENING W MICHELLE BILATERAL DIGITAL [...] possible ultrasound are recommended. Cristina cha/meghan:01/10/2024 09:51:04 Grief Counsellor(s): RT Gauri(R)(M), [facility] letter sent: Additional Imaging Needed Mammogram BI-RADS: 0 Incomplete: needs additional imaging evaluation If this report indicates you need additional imaging, and it has NOT yet been performed, please call , to schedule. We sincerely thank you for choosing the [facility] for your breast imaging needs. Multiple [...] Health, Family Medicine, and Medical/Surgical Oncology, the [facility] has carefully reviewed the data and [...] their providers when to stop screening mammograms. [employer] Restorer: Meghan Transcribe Date/Time: Jan 07 2024 10:48A Dictated by: CRISTINA BENSON MD This examination was interpreted and the report reviewed and electronically signed by: CRISTINA BENSON MD on Jan 10 2024 9:51AM EST [facility] DBT Breast - bilateral scree ningOrdered By: Ccf Provider on 01-10-2024 [facility] DBT Breast - bilateral scree ningon 01-07-2024 Radiology Study observation (narrative) [facility] Absolute lymphocyte countOrd ered By: Armida Mason on 11-06-2023 Lymphocytes Auto (Unsp spec) [#/Vol] 1.63 10*3/uL 0.83-4.51 [facility] Automated lymphocyte count a s percentage of total leukocytesOrdered By: Armida Mason on 11-06-2023 Lymphocytes/100 WBC Auto (Unsp spec) 23.0 % 19-41 [facility] Basophil percentageOrdered B y: Armida Mason on 11-06-2023 Basophils/100 WBC (Bld) 0.3 % 0-1 [facility] Chloride [Moles/Vol] 109 mmol/L 98-107 [facility] Eosinophils/100 WBC (Bld) 0.8 % 0-5 [facility] Glucose [Mass/Vol] 106 mg/dL 74-106 [facility] Comment on above: Fasting Glucose resu lt from 100 to 125 mg/dL suggests IMPAIRED HOMEOSTASIS per A.D.A. criteria. Hemoglobin (Bld) [Mass/Vol] 11.0 g/dL 12.0-15.0 [facility] Monocytes/100 WBC (Bld) 10.0 % 0-10 [facility] Neutrophils (Bld) [#/Vol] 4.6 10*3/uL 2.0-7.7 [facility] Neutrophils/100 WBC (Bld) 65.5 % 47-70 [facility] Potassium [Moles/Vol] 4.1 mmol/L 3.5-5.1 [facility] Sodium [Moles/Vol] 140 mmol/L 136-145 [facility] WBC (Bld) [#/Vol] 7.1 10*3/uL 4.4-11.0 [facility] Determination of erythrocyte mean corpuscular volume (MCV)Ordered By: Armida Mason on 11-06-2023 MCV (RBC) [Entitic vol] 97.7 fL 81-99 [facility] Erythrocyte distribution wid th ratioOrdered By: Armida Mason on 11-06-2023 Erythrocyte distribution width (RBC) [Ratio] 13.2 % 11.6-14.6 [facility] Erythrocyte distribution wid th standard deviationOrdered By: Armida Mason on 11-06-2023 Erythrocyte distribution width (RBC) [Entitic vol] 47.7 fL 35.1-43.9 [facility] Hematocrit Auto (Bld) [Volum e fraction]Ordered By: Armida Mason on 11-06-2023 Hematocrit (Bld) [Volume fraction] 33.9 % 37-47 [facility] Immature granulocytes/100 WB C Auto (Bld)Ordered By: Armida Mason on 11-06-2023 Immature granulocytes/100 WBC (Bld) 0.400 % 0.0-0.9 [facility] Comment on above: IG% - Immature Granu locytes (promyelocytes, myelocytes and metamyelocytes) > 1% indicates that a LEFT SHIFT is Present. Laboratory - Chemistry and C hemistry - challengeOrdered By: Armida Mason on 11-06-2023 CO2 [Moles/Vol] 27.0 mmol/L 21.0-32.0 [facility] Urea nitrogen/Creatinine [Mass ratio] 23.6 mg/mg 10 [facility] Laboratory - Hematology and Cell countsOrdered By: Armida Mason on 11-06-2023 MCH (RBC) [Entitic mass] 31.7 pg 27.0-32.0 [facility] MCHC (RBC) [Mass/Vol] 32.4 g/dL 32-36 [facility] Nucleated RBC/100 WBC (Bld) [Ratio] 0 % 0-5 [facility] Platelets (Bld) [#/Vol] 225 10*3/uL 150-450 [facility] Laboratory - Microbiology an d Antimicrobial susceptibilityOrdered By: Armida Mason on 11-06-2023 SARS-CoV-2 (COVID-19) RNA KOKO+probe Ql (Unsp spec) [facility] No Panel InformationOrdered By: Armida Mason on 11-06-2023 Estimated Creatinine Clearance Calc 26.50 ml/min [facility] Estimated GFR (MDRD) Amer 46 mL/min >60 [facility] Comment on above: GFR Calc Estimated GFR (MDRD) Non-Af Amer 38 mL/min >60 [facility] Comment on above: Non- GFR Calc Troponin I High Sensitivity 10 pg/mL 3.0-54.0 [facility] Comment on above: Please Note: New Neli t Units and Gender Specific Reference Ranges. For more information see Policy Stat Procedure [place] High Sensitivity Troponin (TNIH) and attachments. Platelet mean volume Rui-Ec ker (Bld) [Entitic vol]Ordered By: Armida Mason on 11-06-2023 Platelet mean volume (Bld) [Entitic vol] 9.8 fL 6.2-12.0 [facility] RBC Auto (Bld) [#/Vol]Ordere d By: Armida Mason on 11-06-2023 RBC (Bld) [#/Vol] 3.47 10*6/uL 4.2-5.4 [facility] Serum or plasma calcium ashley urement (mass/volume)Ordered By: Armida Mason on 11-06-2023 Calcium [Mass/Vol] 9.4 mg/dL 8.5-10.1 [facility] Serum or plasma creatinine m easurement (mass/volume)Ordered By: Armida Mason on 11-06-2023 Creatinine [Mass/Vol] 1.40 mg/dL 0.55-1.02 [facility] Comment on above: The validity of the calculated GFR & GFRAA in patients over 70 years has not been determined. Clinical correlation is essential. Serum or plasma urea nitroge n measurement (mass/volume)Ordered By: Armida Mason on 11-06-2023 Urea nitrogen [Mass/Vol] 33 mg/dL 7-18 [facility] Thin prep Papanicolaou smear with manual screeningOrdered By: Armida Mason on 11-06-2023 Thin prep Papanicolaou smear with manual screening 4 5-15 [facility] NM HEPATOBILIARY W EF AND/OR RXon 07-08-2023 [facility] No Panel Informationon 04-01 [facility] No Panel Informationon 03-08 [facility] XR CHEST 2V FRONTAL/LATon [facility] DBT Breast - bilateral scree ningon 01-06-2023 IMPRESSION: BENIGN F INDING There is no mammographic evidence of malignancy. A 1 year screening mammogram is recommended. Simran Laughlin M.D., ch/meghan:01/06/2023 16:13:36 Grief Counsellor(s): RT Lidia(R)(M), [facility] letter sent: [...] Health, Family Medicine, and Medical/Surgical Oncology, the [facility] has carefully reviewed the data and [...] their providers when to stop screening mammograms. [employer] Restorer: Meghan Transcribe Date/Time: Jan 05 2023 3:29P Dictated by: SIMRAN LAUGHLIN MD This examination was interpreted and the report reviewed and electronically signed by: SIMRAN LAUGHLIN MD on Jan 06 2023 4:13PM [facility] DIVISION OF RADIOLOGY * * *Final Report* * * DATE OF EXAM: Jan 05 2023 3:33PM W 0582 - NICOLE SCREENING W MICHELLE / PROCEDURE REASON: Encounter for screening mammogram for breast cancer * * * * Physician Interpretation * * * * RESULT: #[id number] - NICOLE SCREENING W MICHELLE BILATERAL DIGITAL [...] mammogram, and 08/03/2018 mammogram - [facility]. The tissue of both breasts is heterogeneously dense. This may lower the sensitivity of mammography. There are benign post operative findings and biopsy clips in the right breast. No significant masses, calcifications, or other findings are seen in either breast. There has been no significant interval change. DIVISION OF RADIOLOGY Provider, [facility] - 01/06/2023 * * *Final Report* * * DATE OF EXAM: Jan 05 2023 3:33PM [facility] 0582 - NICOLE SCREENING W MICHELLE / PROCEDURE REASON: Encounter for screening mammogram for breast cancer * * * * Physician Interpretation * * * * RESULT: #[id number] - NICOLE SCREENING W MICHELLE BILATERAL DIGITAL [...] 07/18/2019 mammogram, and 08/03/2018 mammogram - [facility]. The tissue of both [...] is recommended. Simran Laughlin M.D., ch/meghan:01/06/2023 16:13:36 Grief Counsellor(s): RT Lidia(R)(M), [facility] letter sent: [...] representation from Breast Imaging, Internal Medicine, [facility], Family Medicine, and Medical/Surgical Oncology, the [facility] has carefully reviewed the data and [...] their providers when to stop screening mammograms. [employer] Restorer: Meghan Transcribe Date/Time: Jan 05 2023 3:29P Dictated by: SIMRAN LAUGHLIN MD This examination was interpreted and the report reviewed and electronically signed by: SIMRAN LAUGHLIN MD on Jan 06 2023 4:13PM EST [facility] DBT Breast - bilateral scree ningOrdered By: Ccpeyton Provider on 01-06-2023 [facility] DBT Breast - bilateral scree ningon 01-05-2023 Radiology Study observation (narrative) [facility] NICOLE SCREENING W Jose Antonio 01-05 [facility] US KIDNEY/BLADDERon 10-08-20 [facility] UA DIP, URINE (POC)on 2021 BILIRUBIN UA (POCT) Negative Negative [facility] CLARITY UA (POCT) Cloudy [facility] COLOR UA (POCT) Yellow [facility] GLUCOSE UA (POCT) Negative Negative mg/dL [facility] HEMOGLOBIN/BLOOD UA (POCT) Small Abnormal Negative [facility] KETONE UA (POCT) Trace Negative mg/dL [facility] LEUKOCYTES UA (POCT) Small Abnormal Negative [facility] NITRITE UA (POCT) Positive Abnormal Negative [facility] PH UA (POCT) 5.5 4.5 - 8.0 [facility] Protein Ql (U) 30 mg/dL Abnormal Negative mg/dL [facility] SPECIFIC GRAVITY UA (POCT) 1.020 1.005 - 1.030 [facility] UROBILINOGEN UA (POCT) 0.2 E.U./dL Ophelia l E.U./dL [facility] CBC W Auto Differential pane l (Bld)on 09-11-2022 Basophils (Bld) [#/Vol] 0.03 10*3/uL <0.11 k/uL [facility] Basophils/100 WBC (Bld) 0.6 % [facility] Differential cell count method Nom (Bld) Auto [facility] Eosinophils (Bld) [#/Vol] 0.16 10*3/uL <0.46 k/uL [facility] Eosinophils/100 WBC (Bld) 3.3 % [facility] Erythrocyte distribution width (RBC) [Ratio] 13.3 % 11.5 - 15.0 % [facility] Hematocrit (Bld) [Volume fraction] 36.6 % 36.0 - 46.0 % [facility] Hemoglobin (Bld) [Mass/Vol] 11.9 g/dL 11.5 - 15.5 g/dL [facility] Immature granulocytes (Bld) [#/Vol] <0.10 k/uL [facility] Immature granulocytes/100 WBC (Bld) 0.2 % [facility] Lymphocytes (Bld) [#/Vol] 2.10 10*3/uL 1.00 - 4.00 k/uL [facility] Lymphocytes/100 WBC (Bld) 43.8 % [facility] MCH (RBC) [Entitic mass] 31.8 pg 26.0 - 34.0 pg [facility] MCHC (RBC) [Mass/Vol] 32.5 g/dL 30.5 - 36.0 g/dL [facility] MCV (RBC) [Entitic vol] 97.9 fL 80.0 - 100.0 fL [facility] Monocytes (Bld) [#/Vol] 0.50 10*3/uL <0.87 k/uL [facility] Monocytes/100 WBC (Bld) 10.4 % [facility] Neutrophils (Bld) [#/Vol] 2.00 10*3/uL 1.45 - 7.50 k/uL [facility] Neutrophils/100 WBC (Bld) 41.7 % [facility] Nucleated RBC (Bld) [#/Vol] <0.01 k/uL [facility] Nucleated RBC/100 WBC (Bld) [Ratio] 0.0 /100 WBC [facility] Platelet mean volume (Bld) [Entitic vol] 9.9 fL 9.0 - 12.7 fL [facility] Platelets (Bld) [#/Vol] 171 10*3/uL 150 - 400 k/uL [facility] RBC (Bld) [#/Vol] 3.74 10*6/uL Low 3.90 - 5.20 m/uL [facility] WBC (Bld) [#/Vol] 4.80 10*3/uL 3.70 - 11.00 k/uL [facility] CBC W Auto Differential pane l (Bld)on 04-17-2022 Abs Immature Gran <0.03 <0.10 k/uL [facility] Basophils (Bld) [#/Vol] 10*3/uL <0.11 k/uL [facility] Basophils/100 WBC (Bld) 0.6 % [facility] Differential cell count method Nom (Bld) Auto [facility] Eosinophils (Bld) [#/Vol] 0.08 10*3/uL <0.46 k/uL [facility] Eosinophils/100 WBC (Bld) 2.2 % [facility] Erythrocyte distribution width (RBC) [Ratio] 13.0 % 11.5 - 15.0 % [facility] Hematocrit (Bld) [Volume fraction] 31.7 % Low 36.0 - 46.0 % [facility] Hemoglobin (Bld) [Mass/Vol] 10.4 g/dL Low 11.5 - 15.5 g/dL [facility] Immature Gran % 0.3 % [facility] Lymphocytes (Bld) [#/Vol] 1.40 10*3/uL 1.00 - 4.00 k/uL [facility] Lymphocytes/100 WBC (Bld) 39.1 % [facility] MCH (RBC) [Entitic mass] 32.4 pg 26.0 - 34.0 pg [facility] MCHC (RBC) [Mass/Vol] 32.8 g/dL 30.5 - 36.0 g/dL [facility] MCV (RBC) [Entitic vol] 98.8 fL 80.0 - 100.0 fL [facility] Monocytes (Bld) [#/Vol] 0.40 10*3/uL <0.87 k/uL [facility] Monocytes/100 WBC (Bld) 11.2 % [facility] Neutrophils (Bld) [#/Vol] 1.67 10*3/uL 1.45 - 7.50 k/uL [facility] Neutrophils/100 WBC (Bld) 46.6 % [facility] Nucleated RBC (Bld) [#/Vol] 10*3/uL <0.01 k/uL [facility] Nucleated RBC/100 WBC (Bld) [Ratio] 0.0 /100 WBC [facility] Platelet mean volume (Bld) [Entitic vol] 10.3 fL 9.0 - 12.7 fL [facility] Platelets (Bld) [#/Vol] 194 10*3/uL 150 - 400 k/uL [facility] RBC (Bld) [#/Vol] 3.21 10*6/uL Low 3.90 - 5.20 m/uL [facility] WBC (Bld) [#/Vol] 3.58 10*3/uL Low 3.70 - 11.00 k/uL [facility] RETIC COUNTon 04-17-2022 Reticulocytes (Bld) [#/Vol] 0.08604 10*3/uL 0.018 - 0.100 M/uL [facility] Reticulocytes (Bld) [#/Vol]o n 04-17-2022 Reticulocytes/100 RBC (Bld) 0.9 % 0.4 - 2.0 % [facility] CNTHERAPYon 02-03-2022 CNTHERAPY OT/PT/Speech [facility] ( [facility] ZENAIDA EVANS ([id number]) 1935 F MAL Date Time Provider Department 02/03/22 3:45 PM LAVERNE HELMS [facility] Date Time Provider Department Center 02/03/2022 3:45 PM [id number] HELMS [facility] Reason for Visit: Occupational Therapy [504] [...] mouth two times a week. - Lmefol Qs-ulwsyn-kaI85-algal (CEREFOLIN NAC, ALGAL OIL,) 6 mg-600 mg- [...] by this patient by: PATIENT Tika Mahmood (Day Light Relief Operator) Annotated image of OT HAND WRIST STRENGTHENING last updated by DEBORAH Saleem on 02/03/2022 4:00 PM [facility] CNTHERAPYon 01-27-2022 CNTHERAPY OT/PT/Speech Visit ( [facility]) ZENAIDA EVANS ([id number]) 1935 F MAYRA Date Time Provider Department 01/27/22 11:45 AM LAVERNE HELMS [facility] Date Time Provider Department Center 01/27/2022 11:45 AM [id number] HELMS [facility] Reason for Visit: Occupational Therapy [504] [...] mouth two times a week. - Lmefol Rq-npiczd-xnR12-algal (CEREFOLIN NAC, ALGAL OIL,) 6 mg-600 mg- [...] by this patient by: PATIENT Tika Mahmood (Day Light Relief Operator) [facility] CNTHERAPYon 01-13-2022 CNTHERAPY OT/PT/Speech Visit ( [facility]) ZENAIDA EVANS ([id number]) 1935 [place] Date Time Provider Department 01/13/22 3:45 PM LAVERNE HELMS [facility] Date Time Provider Department Center 01/13/2022 3:45 PM [id number] HELMS [facility] Reason for Visit: Occupational Therapy [504] [...] mouth two times a week. - Lmefol Vo-dmhgxl-zsN89-algal (CEREFOLIN NAC, ALGAL OIL,) 6 mg-600 mg- [...] by this patient by: PATIENT Tika Mahmood (Day Light Relief Operator) Annotated image of OT HAND POST-OP EX'S PG6-THUMB last updated by DEBORAH Saleem on 01/13/2022 4:03 PM [facility] CNTHERAPYon 01-06-2022 CNTHERAPY OT/PT/Speech Visit ( [facility]) ZENAIDA EVANS ([id number]) 1935 [place] Date Time Provider Department 01/06/22 2:15 PM LAVERNE HELMS Date Time Provider Department Center 01/06/2022 2:15 PM [id number] HELMS [facility] Reason for Visit: Occupational Therapy [504] [...] mouth two times a week. - Lmefol Ik-uqrmny-rkF83-algal (CEREFOLIN NAC, ALGAL OIL,) 6 mg-600 mg- [...] by this patient by: PATIENT Tika Mahmood (Day Light Relief Operator) Normal [facility] DBT Breast - bilateral scree paula 08-18-2021 IMPRESSION: BENIGN F INDING There is no mammographic evidence of malignancy. A 1 year screening mammogram is recommended. Zoya Patel M.D. pt/meghan:08/18/2021 12:22:56 Grief Counsellor(s): RT Renny Treviño, [facility] letter [...] Health, Family Medicine, and Medical/Surgical Oncology, the [facility] has carefully reviewed the data and [...] their providers when to stop screening mammograms. Lace And Textiles Restorer: Meghan Transcribe Date/Time: Aug 18 2021 11:33A Dictated by: ZOYA PATEL MD This examination was interpreted and the report reviewed and electronically signed by: ZOYA PATEL MD on Aug 18 2021 12:22PM [facility] DIVISION OF RADIOLOGY * * *Final Report* * * DATE OF EXAM: Aug 18 2021 11:50AM [facility]82 - [facility] SCREENING W MICHELLE / PROCEDURE REASON: Encounter for screening mammogram for malignant neoplasm of breast * * * * Physician Interpretation * * * * RESULT: #[id number] - NICOLE SCREENING W MICHELLE BILATERAL DIGITAL [...] Hospital, 07/18/2019 mammogram, 08/03/2018 mammogram - [facility], 09/17/2017 [facility], 08/27/2015 mammogram, and 09/17/2014 mammogram - [facility]. The tissue of both breasts is heterogeneously dense. This may lower the sensitivity of mammography. The patient is status post lumpectomy right breast in the upper outer quadrant. The right breast has post-operative findings. There are two biopsy clips in the right breast. No significant masses, calcifications, or other findings are seen in either breast. DIVISION OF RADIOLOGY Provider, [facility] - 08/18/2021 * * *Final Report* * * DATE OF EXAM: Aug 18 2021 11:50AM [facility] 0582 - [facility] SCREENING W MICHELLE / PROCEDURE REASON: Encounter for screening mammogram for malignant neoplasm of breast * * * * Physician Interpretation * * * * RESULT: #[id number] - NICOLE SCREENING W MICHELLE BILATERAL DIGITAL [...] Hospital, 07/18/2019 mammogram, 08/03/2018 [facility] - [facility], 09/[facility], 08/27/2015 mammogram, and 09/17/2014 mammogram - [facility]. The tissue of both [...] screening mammogram is recommended. Zoya Patel M.D. pt/meghan:08/18/2021 12:22:56 Grief Counsellor(s): RT Renny Treviño, [facility] letter [...] Health, Family Medicine, and Medical/Surgical Oncology, the [facility] has carefully reviewed the data and [...] their providers when to stop screening mammograms. Lace And Textiles Restorer: Meghan Transcribe Date/Time: Aug 18 2021 11:33A Dictated by: ZOYA PATEL MD This examination was interpreted and the report reviewed and electronically signed by: ZOYA PATEL MD on Aug 18 2021 12:22PM EST [facility] Radiology Study observation (narrative) [facility] DBT Breast - bilateral scree ningOrdered By: Ccf Provider on 08-18-2021 [facility] XR Wrist - left 4 Viewson IMPRESSION: Findings are suggestive of mild degenerative changes of the left wrist with chondrocalcinosis. Lace And Textiles Restorer: RUDY Transcribe Date/Time: Dec 24 2020 1:39P Dictated by : OMEGA RASCON MD This examination was interpreted and the report reviewed and electronically signed by: OMEGA RASCON MD on Dec 24 2020 1:43PM [facility] DIVISION OF RADIOLOGY * * *Final [...] chondrocalcinosis is present. DIVISION OF RADIOLOGY Provider, [facility] - 12/24/2020 * * *Final Report* [...] changes of the left wrist with chondrocalcinosis. Lace And Textiles Restorer: RUDY Transcribe Date/Time: Dec 24 2020 1:39P Dictated by : OMEGA RASCON MD This examination was interpreted and the report reviewed and electronically signed by: OMEGA RASCON MD on Dec 24 2020 1:43PM EST [facility] Radiology Study observation (narrative) [facility] XR Wrist - left 4 ViewsOrder ed By: Stella Provider on 12-24-2020 [facility] DBT Breast - bilateral beckie paula 07-30-2020 IMPRESSION: BENIGN F INDING There is no mammographic evidence of malignancy. A 1 year screening mammogram is recommended. Kristyn olmedo/meghan:07/30/2020 18:28:30 Grief Counsellor(s): RT Manuel(R)(M), [facility] letter sent: [...] Health, Family Medicine, and Medical/Surgical Oncology, the [facility] has carefully reviewed the data and [...] their providers when to stop screening mammograms. Lace And Textiles Restorer: Meghan Transcribe Date/Time: Jul 30 2020 11:30A Dictated by: KRISTYN WAGNER MD This examination was interpreted and the report reviewed and electronically signed by: KRISTYN WAGNER MD on Jul 30 2020 6:28PM [facility] DIVISION OF RADIOLOGY * * *Final Report* * * DATE OF EXAM: Jul 30 2020 11:55AM W 0582 - NICOLE SCREENING W MICHELLE / PROCEDURE REASON: multiple diagnoses * * * * Physician Interpretation * * * * RESULT: #[id number] - NICOLE SCREENING W MICHELLE BILATERAL DIGITAL [...] dated: 07/18/2019 mammogram, 08/03/2018 mammogram - [facility], 09/17/[facility], and 09/15/2016 mammogram - [facility]. There are scattered fibroglandular [...] significant interval change. DIVISION OF RADIOLOGY Provider, [facility] - 07/30/2020 * * *Final Report* * * DATE OF EXAM: Jul 30 2020 11:55AM [facility] 0582 - NICOLE SCREENING W MICHELLE / PROCEDURE REASON: multiple diagnoses * * * * Physician Interpretation * * * * RESULT: #[id number] - NICOLE SCREENING W MICHELLE BILATERAL DIGITAL [...] dated: 07/18/2019 mammogram, 08/03/2018 mammogram - [facility], 09/17/2017 [facility], and 09/15/2016 [facility]ogram - [facility]. There are scattered fibroglandular elements in both [...] screening mammogram is recommended. Kristyn olmedo/meghan:07/30/2020 18:28:30 Grief Counsellor(s): RT Manuel(R)(M), [facility] letter sent: [...] representation from Breast Imaging, Internal Medicine, [facility], Family Medicine, and Medical/Surgical Oncology, the [facility] has carefully reviewed the data and [...] their providers when to stop screening mammograms. Lace And Textiles Restorer: Meghan Transcribe Date/Time: Jul 30 2020 11:30A Dictated by: KRISTYN WAGNER MD This examination was interpreted and the report reviewed and electronically signed by: KRISTYN WAGNER MD on Jul 30 2020 6:28PM EST [facility] Radiology Study observation (narrative) [facility] DBT Breast - bilateral scree ningOrdered By: Ccf Provider on 07-30-2020 [facility] CNOVon 07-10-2020 CNOV Office Visit ([facility] ) ZENAIDA EVANS ([id number]) 1935 F [facility] Date Time Provider Department 07/10/20 11:00 AM AARTI RECINOS During your visit today, we recorded the following information about you: Temperature Pulse Blood pressure Weight 98.5 degrees 77/minute 172/71 66.5 kg Aarti Recinos MD 07/10/2020 12:24 PM Signed [facility]rology Follow up/ Established patient visit Individuals who were included in, or assisted with the encounter were: ? Zenaida J Cristina ? Aarti Recinos MD ? Chief Complaint/Issues: [...] and the patient was taken to the [facility] ED. In the ED: - VS: [...] of her BP. Upon arrival on the [facility], the patient was alert and oriented. She [...] female who presented to neurology clinic w [facility] breast cancer, collagenous colitis, uncontoled HTN, [...] 03/13/2011 no retinopathy detected -both eyes - [facility] - return in 1 year - Dr. [...] stripping - PAST SURGICAL HISTORY OF Left 1990 left breast Atypical hyperplasia - TOTAL ABDOM HYSTERECTOMY early 1969' Hysterectomy, CAROL, due to fibroids. [...] of 07/05/20 EGD Result Value Ref Range Day Light Relief Operator A31 Gastrointestinal Endoscopy Patient Name: Zenaida Evans Procedure Date: 07/05/2020 4:08 PM Date of : 1935 Admit Type: Outpatient Age: 85 Room: A31 Procedure [facility] Gender: Female Note Status: Finalized Attending MD: [...] short acting medicines. Referring Provider: SUSANNAH CLEMENTE [[id number]] Allergies As of Date: 07/10/2020 Noted Allergy [...] constipation Date Reviewed: 07/05/2020 Reviewed by: Iqra (Livestock Feeder) CORINNA Borrero - Fully Assessed Reason for Visit: Hypertension [168] Primary Visit Diagnosis:Intractable headache, unspecified chronicity pattern, unspecified headache type [R51] Other Visit Diagnoses:Bilateral leg weakness [R29.898] Essential hypertension [I10] Atherosclerosis of [place] coronary artery of [place] heart without angina pectoris [I25.10] Hypothyroidism, unspecified type [E03.9] Malignant neoplasm of lower-outer quadrant of right female breast, unspecified estrogen receptor status (HCC) [C50.511] Basal cell carcinoma, face [C44.310] [facility][id number]] Order #: [id number] FUTURE Prescriptions as of 07/10/2020 Sig: COLCHICINE [...] gait [R26.9] 09/09/2015 Vaginal atrophy [N95.2] Dyspareunia [DNJ8012] Seborrheic dermatitis [L21.9] 11/20/2015 Vaginismus [N94.2] Elevated [...] Status:Closed by AARTI RECINOS MD on 07/10/20 [facility] PROGRESSon 07-10-2020 PROGRESS HNO ID: [id number] Author: Aarti Recinos Service: ? Author Type: Physician Type: Progress Notes Filed: 07/10/2020 12:24 PM Note Text: [facility] Follow up/ Established patient visit Individuals who were included in, or assisted with the encounter were: ? Zenaidamora Evans ? Aarti Recinos MD ? Chief [...] and the patient was taken to the [facility] ED. In the ED: - VS: [...] (10/18/19).? ? The patient was transferred to [facility] for further management of her BP. Upon arrival on the [facility], the patient was alert and oriented. She [...] female who presented to neurology clinic w [facility] breast cancer, collagenous colitis, uncontoled HTN, [...] 03/13/2011 no retinopathy detected -both eyes - [facility] - return in 1 year - [...] stripping - PAST SURGICAL HISTORY OF Left 1990 left breast Atypical hyperplasia - TOTAL ABDOM [...] of 07/05/20 EGD Result Value Ref Range Day Light Relief Operator A31 Gastrointestinal Endoscopy Patient Name: Zenaida Evans [...] of care): 40 minutes Aarti Recinos MD [facility] 02-07-2018 [facility] Office Visit (AGCARDWST) -------ZENAIDA EVANS ([id number]) 1935 [place] Time Provider Department02/07/18 3:00 PM SCOTTY BERRY During your visit today, we recorded the [...] - metBeta cecilia for ASHD with prior PA or prior LVEFANDlt;40 (NQF 0070) - N/ABeta [...] at the time of dosing is greater [id number]. Hopefully we can come to more equilibrium. She will continue Diovan at hercurrent dose.She was advised to increase magnesium in her diet.I've asked her to try Dramamine for episodes of nausea and vertigo to see ifthis helps. 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 I've encouragedher to follow this up with Dr. Clemente. [facility]I will see her as originally scheduled but [...] 100. Blood pressure will vary from less ueio206 to over 150.She has been having problems with some bone pain and headaches. She's had onsetof nausea and some mild vertigo over the last few weeks. She has hadintermittent constipation and occasional vomiting. She reports that she hadbrain scan done while in [facility].She's had rare , atypical chest discomfort. [...] 03/13/2011 no retinopathy detected -both eyes - [facility] - return in 1 year -Dr. [...] History Narrative . 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 5 grandchildren (no greats yet). 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 Enjoys knitting, sewing and photgraphy.REVIEW OF SYSTEMS: [...] programs in your area.Referring Provider: [facility] [[id number]]Allergies As of Date: 02/07/2018 Noted Allergy ReactionSCOPOLAMINE 10/30/2011 1 - Mental Status Change Comments: HallucinationsIRON 09/03/2005 8 - GI Upset Comments: CAN TAKE SLO-IRONTALWIN (PENTAZOCINE LACTATE) 09/30/2009 1 - Mental Status Change Comments: HALLUCINATIONSVERAPAMIL HCL 05/06/2016 8 - GI Upset Comments: constipationDate Reviewed: 02/07/2018Reviewed by: Tika (Ma) Wojciech - Fully AssessedReason for Visit: Follow Up [171]Primary Visit Diagnosis:Renovascular hypertension [I15.0]Order(s):[facility] [[id number]] Order #: [id number] FUTURE hydroCHLOROthiazide (HYDRODIURIL, ESIDRIX) 25 mg tabletTake [...] NAPROXEN 500 MG TABLET >> Tika Jeffrey JOAN 02/07/2018 3:42 PM >> TIKA JEFFREY MA WedFeb 07, 2018 3:42 PM Not taking GABAPENTIN 100 MG CAPSULE >> Tika Jeffrey JOAN 02/07/2018 3:41 PM >> TIKA JEFFREY MA [facility] Feb 07, 2018 3:41 PM Not taking PROBIOTIC ORAL >> Tika Jeffrey JOAN 02/07/2018 3:43 PM >> TIKA JEFFREY MA [facility] Feb 07, 2018 3:43 PM Not taking MINOXIDIL 5 % TOPICAL SOLUTION >> Tika Jeffrey JOAN 02/07/2018 3:43 PM >> TIKA JEFFREY MA [facility] Feb 07, 2018 3:43 PM Not takingProblem [...] [R26.9] INVALID FOR* Vaginal atrophy [N95.2] Dyspareunia [ILD2656] Seborrheic dermatitis [L21.9] INVALID FOR* Vaginismus [N94.2] [...] the following areas and commit to making rn forensic changes. EAT A WHOLE FOOD, PLANT BASED [...] on file.Follow-up and Disposition History RecordedEncounter Number: [id number] Status:Closed by SCOTTY BERRY MD on 02/07/18 [facility] PROGRESSon 02-07-2018 PROGRESS HNO ID: [id number] thor: Scotty Rankin: (none)Author Type: PhysicianType: Progress NotesFiled: 02/07/2018 5:05 PMNote Text:PERTINENT CARDIAC HISTORYChest pain - normal cath and stressPalpitations - SVTHTNHLADHERENCE TO GUIDELINESACE-I or ARB for HF with prior LVEF<40 (NQF 0081) - N/AASA or Plavix for ASHD (NQF 0067) - metBeta cecilia for ASHD with prior PA or prior LVEF<40 (NQF 0070) - N/ABeta [...] that shehad brain scan done while in [facility].She's had rare , atypical chest discomfort. [...] 03/13/2011 no retinopathy detected -both eyes - [facility] - return in 1year - Dr. Ruby- [...] History Narrative . 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 5 grandchildren (no greats yet). Enjoys gardening, anything outside, working on manuscript for a book [employer], [place]. Enjoys knitting, sewing and photgraphy.REVIEW OF SYSTEMS: [...] noncontrastscanElectronicall y Signed:Scotty Berry MDAprjoaquim 2017 4:03 PMCC:Susannah Clemente MD [facility] CNOVon 08-26-2017 CNOV Office Visit (AGCARDWST) -------ZENAIDA EVANS ([id number]) 1935 [place] Time Provider Aonokwbabx50/9/17 11:00 AM SCOTTY BERRY AGCARDWST During your visit today, [...] - metBeta cecilia for ASHD with prior PA or prior LVEFANDlt;40 (NQF 0070) - N/ABeta [...] with treatment plan.This note was generated using Mapiliary voice recognition system, and there may besome [...] 03/13/2011 no retinopathy detected -both eyes - [facility] - return in 1 year -Dr. [...] History Narrative . 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 5 grandchildren (no greats yet). Enjoys gardening, anything outside, working on manuscript for a book onC[employer], [place]. Enjoys knitting, sewing and photgraphy.REVIEW OF SYSTEMS: [...] she consider moderate intensity statintherapy.Electronically Signed:Scotty Berry MDNovember 2016 11:21 [facility]:Héctor Vargas MD 08/26/2017 11:22 AM SignedLIFESTGILLES CHANGEA healthy lifestyle is the most important [...] programs in your area.Referring Provider: SUSANNAH CLEMENTE [[id number]]Allergies As of Date: 08/26/2017 Noted Allergy ReactionSCOPOLAMINE [...] pain, unspecified type [R07.9] SVT (supraventricular tachycardia) (HCC) [I47.1]Order(s):ECG B/O W INTERP (MED OFFICE) [ECG06] Order #: [id number] as of 08/26/2017 Sig: BUDESONIDE DR - [...] 08/26/2017 10:51 AM >> TIKA JEFFREY MA [facility] Aug 26, 2017 10:51 AM Not taking DIPHENOXYLATE-ATROPINE 2.5 MG-0.025 MG TABLET >> Tika Jeffrey MA 08/26/2017 10:51 AM >> TIKA JEFFREY MA [facility] Aug 26, 2017 10:51 AM Not taking BISMUTH SUBSALICYLATE 262 MG CHEWABLE TABLET >> Tika Jeffrey MA 08/26/2017 10:50 AM >> TIKA JEFFREY MA [facility] Aug 26, 2017 10:50 AM Not takingProblem [...] [R26.9] INVALID FOR* Vaginal atrophy [N95.2] Dyspareunia [BWO8251] Seborrheic dermatitis [L21.9] INVALID FOR* Vaginismus [N94.2] [...] the following areas and commit to making rn forensic changes. EAT A WHOLE FOOD, PLANT BASED [...] your area.Follow-up and Disposition History RecordedEncounter Number: [id number] Status:Closed by SCOTTY BERRY MD on 08/27/17 [facility] PROGRESSon 08-26-2017 PROGRESS HNO ID: [id number] thor: Scotty Rankin: (none)Author Type: PhysicianType: Progress NotesFiled: 08/27/2017 10:10 AMNote Text:PERTINENT CARDIAC HISTORYChest pain - normal cath and stressPalpitations - SVTHTNHLADHERENCE TO GUIDELINESACE-I or ARB for HF with prior LVEF<40 (NQF 0081) - N/AASA or Plavix for ASHD (NQF 0067) - metBeta cecilia for ASHD with prior PA or prior LVEF<40 (NQF 0070) - N/ABeta [...] with treatment plan.This note was generated using Mapiliary voice recognition system, and theremay be some [...] 03/13/2011 no retinopathy detected -both eyes - [facility] - return in 1year - Dr. [...] History Narrative . 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 5 grandchildren (no greats yet). 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 Enjoys knitting, sewing and photgraphy.REVIEW OF SYSTEMS: [...] statin therapy.Electronically Signed:Scotty Berry MDNovember 2016 11:21 [facility]:Susannah Clemente MD [facility] Additional Injections: Cathryn farias A1 [facility] Vital Signs Date Time Vital Sign Value Performing Clinician Faci lity 04-27-2025 10:35-0400 Body mass index (BMI) [Ratio] 20.43 kg/m2 Ruby Hurst PA-C Work Phone: [facility] 04-27-2025 10:35-0400 Body temperature 98.29 [degF] Ruby Hurst PA-C Work Phone: [facility] 04-27-2025 10:35-0400 Body weight 58.3 kg Ruby Schuerger PA-C Work Phone: [facility] 04-27-2025 10:35-0400 Diastolic blood pressure 64 mm[Hg] Ruby Carterger PA-C Work Phone: [facility] 04-27-2025 10:35-0400 Heart rate 71 /min Ruby Jguerger PA-C Work Phone: [facility] 04-27-2025 10:35-0400 SaO2% (BldA) [Mass fraction] 91 % Ruby Gregoriouerger PA-C Work Phone: [facility] 04-27-2025 10:35-0400 Systolic blood pressure 119 mm[Hg] Ruby Jguerger PA-C Work Phone: [facility] 04-17-2025 15:44-0400 Body mass index (BMI) [Ratio] 20.54 kg/m2 Susannah Clemente MD Work Phone: [facility] 04-17-2025 15:44-0400 Body temperature 98.01 [degF] Susannah Clemente MD Work Phone: [facility] 04-17-2025 15:44-0400 Body weight 58.6 kg Susannah Clemente MD Work Phone: [facility] 04-17-2025 15:44-0400 Diastolic blood pressure 72 mm[Hg] Susannah Clemente MD Work Phone: [facility] 04-17-2025 15:44-0400 Heart rate 68 /min Susannah Clemente MD Work Phone: [facility] 04-17-2025 15:44-0400 SaO2% (BldA) [Mass fraction] 95 % Susannah Clemente MD Work Phone: [facility] 04-17-2025 15:44-0400 Systolic blood pressure 132 mm[Hg] Susannah Clemente MD Work Phone: [facility] 04-11-2025 15:39-0400 Body temperature 98.1 [degF] Dr. Susannah Clemente MD Work Phone: [facility] 04-11-2025 15:39-0400 Diastolic blood pressure 88 mm[Hg] Dr. Susannah Clemente MD Work Phone: [facility] 04-11-2025 15:39-0400 Heart rate 76 /min Dr. Susannah Clemente MD Work Phone: [facility] 04-11-2025 15:39-0400 Respiratory rate 16 /min Dr. Susannah Clemente MD Work Phone: [facility] 04-11-2025 15:39-0400 SaO2% (BldA) [Mass fraction] 92 % Dr. Susannah Clemente MD Work Phone: [facility] 04-11-2025 15:39-0400 Systolic blood pressure 139 mm[Hg] Dr. Susannah Clemente MD Work Phone: [facility] 04-10-2025 09:52-0400 Body height 167.[address] Susannah Clemente MD Work Phone: [facility] 04-10-2025 09:52-0400 Body weight 57.[address] Susannah Clemente MD Work Phone: [facility] 04-10-2025 08:56-0400 Inhaled oxygen flow rate 95 L/min Dr. Susannah Clemente MD Work Phone: [facility] 04-10-2025 00:23-0400 Body mass index (BMI) [Ratio] 20.5 kg/m2 Dr. Susannah Clemente MD Work Phone: [facility] 04-10-2025 00:00-0400 Diastolic blood pressure 78 mm[Hg] Dr. Susannah Clemente MD Work Phone: [facility] 04-10-2025 00:00-0400 Heart rate 65 /min Dr. Susannah Clemente MD Work Phone: [facility] 04-10-2025 00:00-0400 Respiratory rate 12 /min Dr. Susannah Clemente MD Work Phone: [facility] 04-10-2025 00:00-0400 SaO2% (BldA) [Mass fraction] 94 % Dr. Susannah Clemente MD Work Phone: [facility] 04-10-2025 00:00-0400 Systolic blood pressure 179 mm[Hg] Dr. Susannah Clemente MD Work Phone: [facility] 04-09-2025 23:08-0400 Body temperature 97.8 [degF] Dr. Susannah Clemente MD Work Phone: [facility] 04-09-2025 18:49-0400 Body height 167.[address] Susannah Clemente MD Work Phone: [facility] 04-09-2025 18:49-0400 Body mass index (BMI) [Ratio] 20.9 kg/m2 Dr. Susannah Clemente MD Work Phone: [facility] 04-09-2025 18:49-0400 Body weight 58.[address] Susannah Clemente MD Work Phone: [facility] 04-03-2025 12:08-0400 Diastolic blood pressure 89 mm[Hg] Paul Bautista MD Work Phone: [facility] 04-03-2025 12:08-0400 Systolic blood pressure 168 mm[Hg] Paul Bautista MD Work Phone: [facility] 04-03-2025 12:04-0400 Body height 168.9 cm Paul Bautista MD Work Phone: [facility] 04-03-2025 12:04-0400 Body mass index (BMI) [Ratio] 20.51 kg/m2 Paul Bautista MD Work Phone: [facility] 04-03-2025 12:04-0400 Body weight 58.51 kg Paul Bautista MD Work Phone: [facility] 04-03-2025 12:04-0400 Heart rate 67 /min Paul Bautista MD Work Phone: [facility] 04-03-2025 12:04-0400 Respiratory rate 15 /min Paul Bautista MD Work Phone: [facility] 04-03-2025 12:04-0400 SaO2% (BldA) [Mass fraction] 95 % Paul Bautista MD Work Phone: [facility] 03-27-2025 16:37-0400 Diastolic blood pressure 81 mm[Hg] Susannah Clemente MD Work Phone: [facility] 03-27-2025 16:37-0400 Systolic blood pressure 149 mm[Hg] Susannah Clemente MD Work Phone: [facility] 03-27-2025 16:02-0400 Body height 167.6 cm Susannah Clemente MD Work Phone: [facility] 03-27-2025 16:02-0400 Body mass index (BMI) [Ratio] 21.49 kg/m2 Susannah Clemente MD Work Phone: [facility] 03-27-2025 16:02-0400 Body temperature 97.59 [degF] Susannah Clemente MD Work Phone: [facility] 03-27-2025 16:02-0400 Body weight 60.4 kg Susannah Clemente MD Work Phone: [facility] 03-27-2025 16:02-0400 Heart rate 62 /min Susannah Clemente MD Work Phone: [facility] 03-27-2025 16:02-0400 SaO2% (BldA) [Mass fraction] 97 % Susannah Clemente MD Work Phone: [facility] 07-26-2024 13:57-0400 Body height 167.6 cm Michelle Choudhary MD Work Phone: [facility] 07-26-2024 13:57-0400 Body mass index (BMI) [Ratio] 21.69 kg/m2 Michelle Choudhary MD Work Phone: [facility] 07-26-2024 13:57-0400 Body weight 60.96 kg Michelle Choudhary MD Work Phone: [facility] 07-26-2024 13:57-0400 Diastolic blood pressure 75 mm[Hg] Michelle Choudhary MD Work Phone: [facility] 07-26-2024 13:57-0400 Systolic blood pressure 188 mm[Hg] Michelle Choudhary MD Work Phone: [facility] 07-17-2024 10:43-0400 Body mass index (BMI) [Ratio] 22.1 kg/m2 Dominguez Harkins MD Work Phone: [facility] 07-17-2024 10:43-0400 Body temperature 97.3 [degF] Dominguez Harkins MD Work Phone: [facility] 07-17-2024 10:43-0400 Body weight 62.1 kg Dominguez Harkins MD Work Phone: [facility] 07-17-2024 10:43-0400 Diastolic blood pressure 84 mm[Hg] Dominguez Harkins MD Work Phone: [facility] 07-17-2024 10:43-0400 Heart rate 82 /min Dominguez Harkins MD Work Phone: [facility] 07-17-2024 10:43-0400 Respiratory rate 18 /min Dominguez Harkins MD Work Phone: [facility] 07-17-2024 10:43-0400 SaO2% (BldA) [Mass fraction] 95 % Dominguez Harkins MD Work Phone: [facility] 07-17-2024 10:43-0400 Systolic blood pressure 144 mm[Hg] Dominguez Harkins MD Work Phone: [facility] 07-13-2024 14:28-0400 Body mass index (BMI) [Ratio] 22.17 kg/m2 Erwin Rosales MD Work Phone: [facility] 07-13-2024 14:28-0400 Body temperature 98.2 [degF] Erwin Rosales MD Work Phone: [facility] 07-13-2024 14:280400 Body weight 62.3 kg Erwin Rosales MD Work Phone: [facility] 07-13-2024 14:28-0400 Diastolic blood pressure 82 mm[Hg] Erwin Rosales MD Work Phone: [facility] 07-13-2024 14:28-0400 Heart rate 63 /min Erwin Rosales MD Work Phone: [facility] 07-13-2024 14:28-0400 Respiratory rate 20 /min Erwin Rosales MD Work Phone: [facility] 07-13-2024 14:28-0400 SaO2% (BldA) [Mass fraction] 97 % Erwin Rosales MD Work Phone: [facility] 07-13-2024 14:28-0400 Systolic blood pressure 165 mm[Hg] Erwin Rosales MD Work Phone: [facility] 07-03-2024 10:20-0400 Body mass index (BMI) [Ratio] 21.81 kg/m2 Susannah Clemente MD Work Phone: [facility] 07-03-2024 10:20-0400 Body temperature 97.9 [degF] Susannah Clemente MD Work Phone: [facility] 07-03-2024 10:20-0400 Body weight 61.3 kg Susannah Clemente MD Work Phone: [facility] 07-03-2024 10:20-0400 Diastolic blood pressure 72 mm[Hg] Susannah Clemente MD Work Phone: [facility] 07-03-2024 10:20-0400 Heart rate 74 /min Susannah Clemente MD Work Phone: [facility] 07-03-2024 10:20-0400 SaO2% (BldA) [Mass fraction] 96 % Susannah Clemente MD Work Phone: [facility] 07-03-2024 10:20-0400 Systolic blood pressure 136 mm[Hg] Susannah Clemente MD Work Phone: [facility] 06-26-2024 15:51-0400 Body mass index (BMI) [Ratio] 21.63 kg/m2 Emilee Indorf CLOTH SANDER.NARROW GAUGE OPERATOR Work Phone: [facility] 06-26-2024 15:51-0400 Body temperature 97.39 [degF] Emilee Indorf CLOTH SANDER.NARROW GAUGE OPERATOR Work Phone: [facility] 06-26-2024 15:51-0400 Body weight 60.8 kg Emilee Indorf CLOTH SANDER.NARROW GAUGE OPERATOR Work Phone: [facility] 06-26-2024 15:51-0400 Diastolic blood pressure 78 mm[Hg] Emilee Indorf CLOTH SANDER.NARROW GAUGE OPERATOR Work Phone: [facility] 06-26-2024 15:51-0400 Heart rate 78 /min Emilee Indorf CLOTH SANDER.NARROW GAUGE OPERATOR Work Phone: [facility] 06-26-2024 15:51-0400 Respiratory rate 16 /min Emilee Indorf CLOTH SANDER.NARROW GAUGE OPERATOR Work Phone: [facility] 06-26-2024 15:51-0400 SaO2% (BldA) [Mass fraction] 94 % Emilee Indorf CLOTH SANDER.NARROW GAUGE OPERATOR Work Phone: [facility] 06-26-2024 15:51-0400 Systolic blood pressure 132 mm[Hg] Emilee Indorf CLOTH SANDER.NARROW GAUGE OPERATOR Work Phone: [facility] 06-11-2024 12:32-0400 Body mass index (BMI) [Ratio] 20.99 kg/m2 Kelsi Zavala CLOTH SANDER.NARROW GAUGE OPERATOR Work Phone: [facility] 06-11-2024 12:32-0400 Body temperature 97.11 [degF] Kelsi Zavala CLOTH SANDER.NARROW GAUGE OPERATOR Work Phone: [facility] 06-11-2024 12:32-0400 Body weight 59 kg Kelsi Zavala CLOTH SANDER.NARROW GAUGE OPERATOR Work Phone: [facility] 06-11-2024 12:32-0400 Diastolic blood pressure 85 mm[Hg] Kelsi Zavala CLOTH SANDER.NARROW GAUGE OPERATOR Work Phone: [facility] 06-11-2024 12:32-0400 Heart rate 70 /min Kelsi Zavala CLOTH SANDER.NARROW GAUGE OPERATOR Work Phone: [facility] 06-11-2024 12:32-0400 Respiratory rate 20 /min Kelsi Zavala CLOTH SANDER.NARROW GAUGE OPERATOR Work Phone: [facility] 06-11-2024 12:32-0400 SaO2% (BldA) [Mass fraction] 96 % Kelsi Zavala CLOTH SANDER.NARROW GAUGE OPERATOR Work Phone: [facility] 06-11-2024 12:32-0400 Systolic blood pressure 176 mm[Hg] Kelsi Zavala CLOTH SANDER.NARROW GAUGE OPERATOR Work Phone: [facility] 03-30-2024 14:48-0400 Body height 167.6 cm Paul Bautista MD Work Phone: [facility] 03-30-2024 14:48-0400 Body mass index (BMI) [Ratio] 21.14 kg/m2 Paul Bautista MD Work Phone: [facility] 03-30-2024 14:48-0400 Body weight 59.42 kg Paul Bautista MD Work Phone: [facility] 03-30-2024 14:48-0400 Diastolic blood pressure 68 mm[Hg] Paul Bautista MD Work Phone: [facility] 03-30-2024 14:48-0400 Heart rate 75 /min Paul Bautista MD Work Phone: [facility] 03-30-2024 14:48-0400 SaO2% (BldA) [Mass fraction] 97 % Paul Bautista MD Work Phone: [facility] Comment on above: RA 03-30-2024 14:48-0400 Systolic blood pressure 133 mm[Hg] Paul Bautista MD Work Phone: [facility] 03-29-2024 12:39-0400 Diastolic blood pressure 58 mm[Hg] Susannah Clemente MD Work Phone: [facility] 03-29-2024 12:39-0400 Systolic blood pressure 120 mm[Hg] Susannah Clemente MD Work Phone: [facility] 03-28-2024 16:32-0400 Diastolic blood pressure 91 mm[Hg] Susannah Clemente MD Work Phone: [facility] 03-28-2024 16:32-0400 Systolic blood pressure 176 mm[Hg] Susannah Clemente MD Work Phone: [facility] 03-28-2024 16:07-0400 Body mass index (BMI) [Ratio] 22.03 kg/m2 Susannah Clemente MD Work Phone: [facility] 03-28-2024 16:07-0400 Body temperature 97.7 [degF] Susannah Clemente MD Work Phone: [facility] 03-28-2024 16:07-0400 Body weight 61.92 kg Susannah Clemente MD Work Phone: [facility] 03-28-2024 16:07-0400 Heart rate 60 /min Susannah Clemente MD Work Phone: [facility] 03-28-2024 16:07-0400 SaO2% (BldA) [Mass fraction] 97 % Susannah Clemente MD Work Phone: [facility] 01-26-2024 11:31-0400 Body height 167.6 cm Virgil Gomez MD Work Phone: [facility] 01-26-2024 11:31-0400 Body temperature 97.7 [degF] Virgil Gomez MD Work Phone: [facility] 01-26-2024 11:31-0400 Body weight 62.14 kg Virgil Gomez MD Work Phone: [facility] 01-26-2024 11:31-0400 Diastolic blood pressure 75 mm[Hg] Virgil Gomez MD Work Phone: [facility] 01-26-2024 11:31-0400 Heart rate 64 /min Virgil Gomez MD Work Phone: [facility] 01-26-2024 11:31-0400 SaO2% (BldA) [Mass fraction] 96 % Virgil Gomez MD Work Phone: [facility] 01-26-2024 11:31-0400 Systolic blood pressure 181 mm[Hg] Virgil Gomez MD Work Phone: [facility] 11-06-2023 13:44-0500 Diastolic blood pressure 81 mm[Hg] [facility] 11-06-2023 13:44-0500 Heart rate 63 /min [facility] 11-06-2023 13:44-0500 Systolic blood pressure 178 mm[Hg] [facility] 11-06-2023 11:49-0500 Body height 167.64 cm [facility] 11-06-2023 11:49-0500 Body mass index (BMI) [Ratio] 21.9 kg/m2 [facility] 11-06-2023 11:49-0500 Body temperature 95.6 [degF] [facility] 11-06-2023 11:49-0500 Body weight 61.5 kg [facility] 11-06-2023 11:49-0500 Respiratory rate 16 /min [facility] 11-06-2023 11:49-0500 SaO2% (BldA) [Mass fraction] 98 % [facility] 09-30-2023 11:48-0500 Body height 167.6 cm Paul Bautista MD Work Phone: [facility] 09-30-2023 11:48-0500 Body weight 59.88 kg Paul Bautista MD Work Phone: [facility] 09-30-2023 11:48-0500 Diastolic blood pressure 63 mm[Hg] Paul Bautista MD Work Phone: [facility] 09-30-2023 11:48-0500 Heart rate 70 /min Paul Bautista MD Work Phone: [facility] 09-30-2023 11:48-0500 Respiratory rate 15 /min Paul Bautista MD Work Phone: [facility] 09-30-2023 11:48-0500 SaO2% (BldA) [Mass fraction] 95 % Paul Bautista MD Work Phone: [facility] 09-30-2023 11:48-0500 Systolic blood pressure 155 mm[Hg] Paul Bautista MD Work Phone: [facility] 08-06-2023 11:11-0400 Body height 166.4 cm Migel Garcia PA-C Work Phone: [facility] 08-06-2023 11:11-0400 Body weight 60.83 kg Migel Garcia PA-C Work Phone: [facility] 08-06-2023 11:11-0400 Diastolic blood pressure 67 mm[Hg] Migel Garcia PA-C Work Phone: [facility] 08-06-2023 11:11-0400 Heart rate 69 /min Migel Garcia PA-C Work Phone: [facility] 08-06-2023 11:11-0400 SaO2% (BldA) [Mass fraction] 95 % Migel Garcia PA-C Work Phone: [facility] 08-06-2023 11:11-0400 Systolic blood pressure 125 mm[Hg] Migel Garcia PA-C Work Phone: [facility] 07-05-2023 13:43-0400 Diastolic blood pressure 60 mm[Hg] Susannah Clemente MD Work Phone: [facility] 07-05-2023 13:43-0400 Systolic blood pressure 138 mm[Hg] Susannah Clemente MD Work Phone: [facility] 07-05-2023 12:58-0400 Body height 168.9 cm Susannah Clemente MD Work Phone: [facility] 07-05-2023 12:58-0400 Body temperature 97.7 [degF] Susannah Clemente MD Work Phone: [facility] 07-05-2023 12:58-0400 Body weight 60.44 kg Susannah Clemente MD Work Phone: [facility] 07-05-2023 12:58-0400 Heart rate 78 /min Susannah Clemente MD Work Phone: [facility] 07-05-2023 12:58-0400 SaO2% (BldA) [Mass fraction] 97 % Susannah Clemente MD Work Phone: [facility] 03-23-2023 16:27-0400 Body height 167.6 cm Susannah Clemente MD Work Phone: [facility] 03-23-2023 16:27-0400 Body temperature 98.2 [degF] Susannah Clemente MD Work Phone: [facility] 03-23-2023 16:27-0400 Body weight 59.42 kg Susannah Clemente MD Work Phone: [facility] 03-23-2023 16:27-0400 Diastolic blood pressure 62 mm[Hg] Susannah Clemente MD Work Phone: [facility] 03-23-2023 16:27-0400 Heart rate 75 /min Susannah Clemente MD Work Phone: [facility] 03-23-2023 16:27-0400 SaO2% (BldA) [Mass fraction] 96 % Susannah Clemente MD Work Phone: [facility] 03-23-2023 16:27-0400 Systolic blood pressure 130 mm[Hg] Susannah Clemente MD Work Phone: [facility] 01-30-2023 09:47-0400 Body temperature 97.59 [degF] Kelsi Zavala CLOTH SANDER.NARROW GAUGE OPERATOR Work Phone: [facility] 01-30-2023 09:47-0400 Body weight 60.78 kg Kelsi Zavala CLOTH SANDER.NARROW GAUGE OPERATOR Work Phone: [facility] 01-30-2023 09:47-0400 Diastolic blood pressure 80 mm[Hg] Kelsi Zavala CLOTH SANDER.NARROW GAUGE OPERATOR Work Phone: [facility] 01-30-2023 09:47-0400 Heart rate 82 /min Kelsi Zavala CLOTH SANDER.NARROW GAUGE OPERATOR Work Phone: [facility] 01-30-2023 09:47-0400 Respiratory rate 16 /min Kelsi Zavala CLOTH SANDER.NARROW GAUGE OPERATOR Work Phone: [facility] 01-30-2023 09:47-0400 SaO2% (BldA) [Mass fraction] 96 % Kelsi Zavala CLOTH SANDER.NARROW GAUGE OPERATOR Work Phone: [facility] 01-30-2023 09:47-0400 Systolic blood pressure 144 mm[Hg] Kelsi Zavala CLOTH SANDER.NARROW GAUGE OPERATOR Work Phone: [facility] 02-03-2023 11:00-0500 Body height 167.6 cm Le Reay CLOTH SANDER.NARROW GAUGE OPERATOR Work Phone: [facility] 11-20-2022 11:00-0500 Body weight 61.92 kg Le Reay CLOTH SANDER.NARROW GAUGE OPERATOR Work Phone: [facility] 11-20-2022 11:00-0500 Diastolic blood pressure 68 mm[Hg] Le Reay CLOTH SANDER.NARROW GAUGE OPERATOR Work Phone: [facility] 11-20-2022 11:00-0500 Heart rate 76 /min Le Reay CLOTH SANDER.NARROW GAUGE OPERATOR Work Phone: [facility] 11-20-2022 11:00-0500 SaO2% (BldA) [Mass fraction] 95 % Le Reay CLOTH SANDER.NARROW GAUGE OPERATOR Work Phone: [facility] 11-20-2022 11:00-0500 Systolic blood pressure 137 mm[Hg] Le Reay CLOTH SANDER.NARROW GAUGE OPERATOR Work Phone: [facility] 10-05-2022 15:00-0500 Body temperature 97.2 [degF] Ramandeep Bogner PA-C Work Phone: [facility] 10-05-2022 15:00-0500 Body weight 60.24 kg Ramandeep Bogner PA-C Work Phone: [facility] 10-05-2022 15:00-0500 Diastolic blood pressure 84 mm[Hg] Ramandeep Bogner PA-C Work Phone: [facility] 10-05-2022 15:00-0500 Heart rate 81 /min Ramandeep Bogner PA-C Work Phone: [facility] 10-05-2022 15:00-0500 Respiratory rate 20 /min Ramandeep Bogner PA-C Work Phone: [facility] 10-05-2022 15:00-0500 SaO2% (BldA) [Mass fraction] 97 % Ramandeep Bogner PA-C Work Phone: [facility] 10-05-2022 15:00-0500 Systolic blood pressure 162 mm[Hg] Ramandeep Nieto PA-C Work Phone: [facility] 10-01-2022 17:18-0500 Diastolic blood pressure 60 mm[Hg] Susannah Clemente MD Work Phone: [facility] 10-01-2022 17:18-0500 Systolic blood pressure 100 mm[Hg] Susannah Clemente MD Work Phone: [facility] 10-01-2022 14:24-0500 Body temperature 98.01 [degF] Susannah Clemente MD Work Phone: [facility] 10-01-2022 14:24-0500 Body weight 60.22 kg Susannah Clemente MD Work Phone: [facility] 10-01-2022 14:24-0500 Heart rate 94 /min Susannah Clemente MD Work Phone: [facility] 10-01-2022 14:24-0500 SaO2% (BldA) [Mass fraction] 96 % Susannah Clemente MD Work Phone: [facility] 09-02-2022 13:33-0500 Body height 168.9 cm Paul aButista MD Work Phone: [facility] 09-02-2022 13:33-0500 Body weight 60.33 kg Paul Bautista MD Work Phone: [facility] 09-02-2022 13:33-0500 Diastolic blood pressure 75 mm[Hg] Paul Bautista MD Work Phone: [facility] 09-02-2022 13:33-0500 Heart rate 70 /min Paul Bautista MD Work Phone: [facility] 09-02-2022 13:33-0500 Respiratory rate 15 /min Paul Bautista MD Work Phone: [facility] 09-02-2022 13:33-0500 SaO2% (BldA) [Mass fraction] 97 % Paul Bautista MD Work Phone: [facility] 09-02-2022 13:33-0500 Systolic blood pressure 154 mm[Hg] Paul Bautista MD Work Phone: [facility] 07-16-2022 11:54-0400 Diastolic blood pressure 77 mm[Hg] Susannah Clemente MD Work Phone: [facility] 07-16-2022 11:54-0400 Systolic blood pressure 177 mm[Hg] Susannah Clemente MD Work Phone: [facility] 07-16-2022 11:37-0400 Body temperature 98.01 [degF] Susannah Clemente MD Work Phone: [facility] 07-16-2022 11:37-0400 Body weight 62.26 kg Susannah Clemente MD Work Phone: [facility] 07-16-2022 11:37-0400 Heart rate 68 /min Susannah Clemente MD Work Phone: [facility] 07-16-2022 11:37-0400 SaO2% (BldA) [Mass fraction] 97 % Susannah Clemente MD Work Phone: [facility] 05-18-2022 09:46-0400 Body height 167.6 cm Paul Bautista MD Work Phone: [facility] 05-18-2022 09:46-0400 Body weight 62.32 kg Paul Bautista MD Work Phone: [facility] 05-18-2022 09:46-0400 Diastolic blood pressure 89 mm[Hg] Paul Bautista MD Work Phone: [facility] 05-18-2022 09:46-0400 Heart rate 64 /min Paul Bautista MD Work Phone: [facility] 05-18-2022 09:46-0400 SaO2% (BldA) [Mass fraction] 99 % Paul Bautista MD Work Phone: [facility] 05-18-2022 09:46-0400 Systolic blood pressure 187 mm[Hg] Paul Bautista MD Work Phone: [facility] 05-14-2022 10:28-0400 Body height 167.6 cm Michelle Choudhary MD Work Phone: [facility] 05-14-2022 10:28-0400 Body weight 63.41 kg Michelle Choudhary MD Work Phone: [facility] 05-14-2022 10:28-0400 Diastolic blood pressure 81 mm[Hg] Michelle Choudhary MD Work Phone: [facility] 05-14-2022 10:28-0400 Heart rate 70 /min Michelle Choudhary MD Work Phone: [facility] 05-14-2022 10:28-0400 Systolic blood pressure 176 mm[Hg] Michelle Choudhary MD Work Phone: [facility] 04-17-2022 11:00-0400 Body height 166 cm Rosendo Rodgers MD Work Phone: [facility] 04-17-2022 11:00-0400 Body temperature 97.2 [degF] Rosendo Rodgers MD Work Phone: [facility] 04-17-2022 11:00-0400 Body weight 60.78 kg Rosendo Rodgers MD Work Phone: [facility] 04-17-2022 11:00-0400 Diastolic blood pressure 65 mm[Hg] Rosendo Rodgers MD Work Phone: [facility] 04-17-2022 11:00-0400 Heart rate 76 /min Rosendo Rodgers MD Work Phone: [facility] 04-17-2022 11:00-0400 Respiratory rate 20 /min Rosendo Rodgers MD Work Phone: [facility] 04-17-2022 11:00-0400 SaO2% (BldA) [Mass fraction] 98 % Rosendo Rodgers MD Work Phone: [facility] 04-17-2022 11:00-0400 Systolic blood pressure 134 mm[Hg] Rosendo Rodgers MD Work Phone: [facility] 04-14-2022 11:40-0400 Diastolic blood pressure 97 mm[Hg] Susannah Clemente MD Work Phone: [facility] 04-14-2022 11:40-0400 Systolic blood pressure 171 mm[Hg] Susannah Clemente MD Work Phone: [facility] 04-14-2022 11:23-0400 Body height 166.4 cm Susannah Clemente MD Work Phone: [facility] 04-14-2022 11:23-0400 Body temperature 97.81 [degF] Susannah Clemente MD Work Phone: [facility] 04-14-2022 11:23-0400 Body weight 61.24 kg Susannah Clemente MD Work Phone: [facility] 04-14-2022 11:23-0400 Heart rate 80 /min Susannah Clemente MD Work Phone: [facility] 04-14-2022 11:23-0400 SaO2% (BldA) [Mass fraction] 97 % Susannah Clemente MD Work Phone: [facility] Encounters Encounter Date Encounter Type Care Provider Facility Start: 04-27-2025 End: 04-27-2025 Telephone encounter Susannah Clemente MD Work Phone: [facility] Comment on above: Patient Update Start: 04-27-2025 End: 04-27-2025 Office outpatient visit 40 minutes Ruby Hurst PA-C Work Phone: [facility] Comment on above: Dizziness (Primary D x); Hypoxia Start: 04-17-2025 End: 04-17-2025 Patient encounter procedure Susannah Clemente MD Work Phone: [facility] Comment on above: NSTEMI (non-ST eleva therese myocardial infarction) (HCC) (Primary Dx); Pulmonary nodules; Lung nodules; Acute deep vein thrombosis (DVT) of calf muscle vein of left lower extremity (HCC); Demand ischemia (HCC); Nausea; Dizziness Start: 04-17-2025 End: 04-17-2025 ambulatory SUSANNAH CLEMENTE Facility:[facility] Start: 04-17-2025 End: 04-17-2025 Telephone encounter Susannah Clemente MD Work Phone: [facility] Start: 04-16-2025 End: 04-17-2025 ambulatory Susannah Clemente MD Work Phone: [facility] Comment on above: Medication Problem ( Eliquis 5 mg, take one tablet twice daily) Start: 04-12-2025 End: 04-12-2025 ambulatory Abena Peraza RN [facility] Start: 04-12-2025 End: 04-12-2025 Telephone encounter Susannah Clemente MD Work Phone: [facility] Comment on above: Appointment Start: 04-11-2025 Non-patient / Non-visit Dr. Justino [facility] Work Phone: Start: 04-10-2025 Non-patient / Non-visit Dr. Justino [facility] Work Phone: Start: 04-10-2025 End: 04-10-2025 Telephone encounter Paul Bautista MD Work Phone: Cardiology Comment on above: Counseling (Patient was taken to the ED overnight. Has had what they think is a heart attack. They want to do a cardiac cath.) Start: 04-10-2025 ambulatory [facility] Facility:[facility] Start: 04-10-2025 Non-patient / Non-visit Dr. Richard nielsen MD -[facility] Start: 04-10-2025 ambulatory Susannah Salmarilin Facilit y:[facility] Start: 04-10-2025 Non-patient / Non-visit Dr. Rosa SERRANO -[facility] Start: 04-09-2025 ambulatory Susannah Salmarilin Facilit y:[facility] Start: 04-09-2025 End: 04-11-2025 Evaluation and management of inpatient Dr. Migel Godoy [facility] Work Phone: Start: 04-04-2025 End: 04-04-2025 [...] Start: 04-03-2025 End: 04-03-2025 ambulatory PAUL BAUTISTA Facility:[facility] Start: 04-03-2025 End: 04-03-2025 [facility] Start: 04-02-2025 End: 04-05-2025 Telephone encounter Susannah Cleemnte MD Work Phone: [facility] Comment on above: Forms ([facility]) Start: 03-27-2025 End: 03-27-2025 ambulatory SUSANNAH CLEMENTE Facility:[facility] Start: 03-27-2025 End: 03-27-2025 Patient encounter procedure Susannah Clemente MD Work Phone: [facility] Comment on above: 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); Chronic [...] Start: 02-01-2025 End: 02-01-2025 ambulatory SUSANNAH CLEMENTE Facility:[facility] Start: 02-01-2025 End: 02-05-2025 Follow-up encounter Susannah Clemente MD Work Phone: [facility] Comment on above: Results Start: 01-27-2025 End: 01-29-2025 ambulatory Susannah Clemente MD Work Phone: [facility] Comment on above: Schedule for blood t ests Start: 01-15-2025 End: 01-19-2025 Telephone encounter Susannah Clemente MD Work Phone: [facility] Comment on above: Orders ([facility]) Start: 01-05-2025 End: 01-09-2025 Refill Susannah Clemente MD Work Phone: [facility] Comment on above: Refill Request Start: 11-17-2024 End: 11-17-2024 ambulatory SUSANNAH CLEMENTE Facility:[facility] Start: 11-15-2024 End: 11-16-2024 Telephone encounter Susannah Clemente MD Work Phone: [facility] Start: 10-24-2024 End: 10-24-2024 Telephone encounter Susannah Clemente MD Work Phone: [facility] Comment on above: Orders; Appointment Start: 10-08-2024 End: 10-09-2024 Refill Susannah Clemente MD Work Phone: [facility] Comment on above: Refill Request Start: 09-13-2024 End: 09-13-2024 Orders Only Palu Bautista MD Work Phone: Cardiology Comment on above: Chronic diastolic (c ongestive) heart failure (HCC) (Primary Dx) Start: 08-29-2024 End: 08-30-2024 Refill Susannah Clemente MD Work Phone: Internal Medicine [place] Comment on above: Refill Request Start: 07-27-2024 End: 07-27-2024 ambulatory SUSANNAH CLEMENTE Facility:[facility] Start: 07-26-2024 End: 07-26-2024 ambulatory MICHELLE CHOUDHARY Facility:[facility] Start: 07-26-2024 End: 08-01-2024 Patient encounter procedure Michelle Choudhary MD Work Phone: Dermatology Comment on above: Neoplasm of unspecif ied behavior of bone, soft tissue, and skin (Primary Dx); Telogen effluvium; Seborrheic dermatitis; Hx of nonmelanoma skin cancer; Photoaging of skin; Personal history of malignant neoplasm of breast; Chronic diastolic (congestive) heart failure (HCC) Start: 07-17-2024 End: 07-17-2024 ambulatory SUSANNAH CLEMENTE Facility:[facility] Start: 07-17-2024 End: 07-17-2024 Patient encounter procedure Dominguez Harkins MD Work Phone: [facility] Comment on above: Urgency of urination (Primary Dx) Start: 07-14-2024 End: 07-14-2024 ambulatory SUSANNAHASHLEY CLEMENTE Facility:[facility] Start: 07-14-2024 End: 07-14-2024 Subsequent hospital visit by physician Bharati [facility] Faith Work Phone: Radiology Comment on above: Exertional dyspnea [ R06.09] Start: 07-13-2024 End: 07-13-2024 ambulatory ERWIN ROSALES Facility:[facility] Start: 07-13-2024 End: 07-13-2024 Patient encounter procedure Erwin Rosales MD Work Phone: [facility] Comment on above: 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 Breathing Problem Start: 07-03-2024 End: 07-03-2024 Telephone encounter Susannah Clemente MD Work Phone: [facility] Comment on above: Patient Question (No thing was available for medicare wellness until February, AVS said to see in 4 months, offered patient to schedule with Ruby, she did not want to, wanted to know if scheduling her for February was okay with you? She asked me to send this to you.) Start: 07-03-2024 End: 07-03-2024 ambulatory SUSANNAH CLEMENTE Facility:[facility] Start: 07-03-2024 End: 07-03-2024 Office outpatient visit 25 minutes Susannah Clemente MD Work Phone: [facility] Comment on above: 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 4 chronic kidney disease, or chronic kidney disease (HCC) (Primary Dx); Exertional dyspnea; Acute cystitis without hematuria Start: 06-26-2024 End: 06-26-2024 Office outpatient visit 15 minutes Emilee Crump APRN.NARROW GAUGE OPERATOR Work Phone: [facility] Comment on above: Urinary frequency (P rimary Dx) Start: 06-26-2024 End: 06-26-2024 ambulatory Susannah Clemente MD Work Phone: [facility] Comment on above: burning and pressure with urination Start: 06-24-2024 End: 06-24-2024 ambulatory SUSANNAH CLEMENTE Facility:[facility] Start: 06-11-2024 End: 06-11-2024 ambulatory SUSANNAH CLEMENTE Facility:[facility] Start: 06-11-2024 End: 06-11-2024 Patient encounter procedure Kelsi Zavala APRN.NARROW GAUGE OPERATOR Work Phone: [facility] Comment on above: Cellulitis of left a rm (Primary Dx) Start: 05-30-2024 End: 05-30-2024 ambulatory ABENA BUSTILLOS Facility:[facility] Start: 05-16-2024 End: 05-16-2024 ambulatory ABENA BUSTILLOS Facility:[facility] Start: 05-15-2024 Refill Susannah buchanan MD Work Phone: [facility] Comment on above: Refill Request Start: 05-14-2024 ambulatory Susannah buchanan MD Work Phone: [facility] Comment on above: Ondansetron ODT 4mg Refill Request Start: 05-03-2024 End: 05-03-2024 ambulatory ABENA BUSTILLOS Facility:[facility] Start: 04-10-2024 Telephone encounter Susannah Clemente MD Work Phone: [facility] Start: 04-08-2024 ambulatory Susannah buchanan MD Work Phone: [facility] Comment on above: Blood Pressure numbe rs Start: 03-30-2024 End: 03-30-2024 Patient encounter procedure Paul Bautista MD Work Phone: Cardiology Comment on above: Chronic diastolic (c ongestive) heart failure (HCC) (Primary Dx) Start: 03-28-2024 End: 03-28-2024 Office outpatient visit 25 minutes Susannah Clemente MD Work Phone: [facility] Comment on above: Situational depressi on (Primary Dx); Cerebral microvascular disease; Essential hypertension; Epigastric abdominal tenderness without rebound tenderness; 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 disease, or chronic kidney disease (HCC); Collagenous colitis; 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) Start: 03-13-2024 Refill Susannah buchanan MD Work Phone: [facility] Comment on above: Refill Request Start: 01-26-2024 End: 01-26-2024 Patient encounter procedure Virgil Gomez MD Work Phone: Gastroenterology Comment on above: Pancreatic cyst (Monik cristina Dx); Collagenous colitis Start: 01-17-2024 Refill Paul dawson MD Work Phone: Cardiology Comment on above: Rx Refills Start: 01-10-2024 Documentation procedure [facility]og yang [facility] Start: 01-10-2024 Letter encounter Mammography Coordinator [facility] Department Start: 01-07-2024 End: 01-07-2024 Patient encounter procedure Alicia Hylton CLOTH SANDER.NARROW GAUGE OPERATOR Work Phone: [facility] Comment on above: Abnormal mammogram ( Primary Dx); Fibrocystic breast changes of both breasts; Dense breast; Personal history of breast cancer Start: 01-07-2024 End: 01-07-2024 Subsequent hospital visit by physician [facility] Work Phone: Mammography Comment on above: Encounter for screen ing mammogram for breast cancer [Z12.31] Start: 01-03-2024 ambulatory Susannah buchanan MD Work Phone: [facility] Start: 01-03-2024 Patient encounter procedure Susannah Clemente MD Work Phone: [facility] Comment on above: Consult to [facility] Medicine Start: 12-31-2023 Orders Only Alicia nair CLOTH SANDER.NARROW GAUGE OPERATOR Work Phone: [facility] Comment on above: Encounter for screen ing mammogram for breast cancer (Primary Dx) Start: 12-31-2023 Refill Susannah buchanan MD Work Phone: [facility] Comment on above: Refill Request Start: 12-20-2023 ambulatory Susannah buchanan MD Work Phone: [facility] Comment on above: Mammogram schedule Start: 11-06-2023 End: 11-06-2023 Emergency department patient visit [facility] Work Phone: Start: 10-18-2023 End: 09-06-2024 Telephone encounter Virgil Gomez MD Work Phone: Gastroenterology Start: 10-07-2023 Refill Susannah buchanan MD Work Phone: [facility] [place] Comment on above: Refill Request (Clon idine and Labetalol) Start: 09-30-2023 End: 09-30-2023 Patient encounter procedure Paul Bautista MD Work Phone: Cardiology Comment on above: Chronic diastolic (c ongestive) heart failure (HCC) (Primary Dx); Stage 3a chronic kidney disease (HCC) Start: 09-20-2023 ambulatory Migel WILKERSONC Work Phone: [facility] Comment on above: Physical therapy Start: 09-10-2023 End: 09-10-2023 ambulatory Liam Bull PT Work Phone: [facility] Comment on above: Chronic thoracic [place] pain, unspecified back pain laterality (Primary Dx); Degenerative scoliosis in adult patient; 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 Start: 09-08-2023 End: 09-08-2023 ambulatory Shalini Lopez [facility] Work Phone: [facility] Comment on above: Chronic diastolic (c ongestive) heart failure (HCC) (Primary Dx) Start: 09-08-2023 End: 09-08-2023 Telemedicine consultation with patient Shalini Lopez [facility] Work Phone: [facility] Start: 09-02-2023 ambulatory Nadja antony [facility] Comment on above: Population Health Na vigation Outreach (SGLT2) Start: 08-30-2023 End: 08-30-2023 ambulatory Liam Bull PT Work Phone: [facility] Comment on above: Chronic thoracic [place] pain, unspecified back pain laterality (Primary Dx); 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; Degenerative scoliosis in adult patient Start: 08-21-2023 End: 08-21-2023 ambulatory Immunization Clinic Nurse Fam Work Phone: [facility] Comment on above: Arrived Start: 08-15-2023 Refill Michelle Choudhary MD Work Phone: Dermatology Comment on above: Refill Request Start: 08-06-2023 End: 08-06-2023 Patient encounter procedure Migel Garcia PA-C Work Phone: [facility] Comment on above: 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 (Primary Dx); Degenerative scoliosis in adult patient; Chronic thoracic back pain, unspecified back pain laterality Start: 08-04-2023 End: 08-04-2023 Patient encounter procedure Bone 2 [facility] Start: 08-04-2023 End: 08-04-2023 Subsequent hospital visit by physician Bone Density Main A21 2 Radiology Comment on above: Asymptomatic postmen opausal state [Z78.0] Start: 07-26-2023 End: 07-26-2023 Patient encounter procedure Cristina Hunt Lara AUD Work Phone: Audiology Comment on above: Sensorineural hearin g loss, bilateral (Primary Dx) Start: 07-08-2023 End: 07-08-2023 Patient encounter procedure [facility] Work Phone: [facility] Start: 07-08-2023 End: 07-08-2023 Subsequent hospital visit by physician [facility] Work Phone: Nuclear Medicine Comment on above: Medicare annual well ness visit, subsequent [Z00.00] Start: 07-05-2023 Telephone encounter Susannah Clemente MD Work Phone: Internal [facility] Start: 07-05-2023 End: 07-05-2023 Patient encounter procedure Susannah Clemente MD Work Phone: Internal [facility] Comment on above: Medicare annual well ness visit, subsequent (Primary Dx); Asymptomatic postmenopausal state; Thoracogenic scoliosis, unspecified spinal region; Chronic thoracic back pain, unspecified back pain laterality; Decreased hearing of both ears; Anemia due to stage 3b chronic kidney disease (HCC); Epigastric pain; Hypothyroidism, unspecified type Start: 04-08-2023 End: 04-08-2023 ambulatory Kelsi Otto [facility] Comment on above: Acute right-sided th oracic back pain (Primary Dx) Start: 04-02-2023 End: 04-02-2023 ambulatory [facility] Work Phone: Cardiology Comment on above: Event (ZIO PATCH) Start: 04-01-2023 End: 04-01-2023 Subsequent hospital visit by physician Us [facility] W[facility] Mob 1 Work Phone: Radiology Comment on above: Epigastric abdominal tenderness without rebound tenderness [R10.816] Start: 03-23-2023 End: 03-23-2023 Office outpatient visit 15 minutes Susannah Clemente MD Work Phone: Internal Medicine [place] Comment on above: Rib pain on right si de (Primary Dx); Epigastric abdominal tenderness without rebound tenderness; Thoracogenic scoliosis, unspecified spinal region Start: 03-08-2023 ambulatory Susannah buchanan MD Work Phone: Family [facility] Comment on above: Back Pain ([place]) Start: 03-08-2023 End: 03-08-2023 Subsequent hospital visit by physician Bharati [facility] Work Phone: Radiology Comment on above: Acute right-sided th oracic back pain [M54.6] Start: 02-20-2023 ambulatory Susannah buchanan MD Work Phone: [facility] Comment on above: medical massages Start: 01-30-2023 End: 01-30-2023 Patient encounter procedure Kelsi Zavala APRN.NARROW GAUGE OPERATOR Work Phone: [facility] Comment on above: Difficulty swallowin g pills (Primary Dx); Pharyngitis, unspecified etiology Start: 01-15-2023 End: 01-15-2023 Subsequent hospital visit by physician Bharati [facility] Work Phone: Radiology Comment on above: Exertional dyspnea [ R06.09] Start: 01-06-2023 Documentation procedure Mammog yang Coordinator [facility] Start: 01-06-2023 Letter encounter Mammography Coordinator [facility] Department Start: 01-05-2023 End: 01-05-2023 Patient encounter procedure Beaujuaquinzain EscalonaHyltonkorey CAMPUZANO.NARROW GAUGE OPERATOR Work Phone: [facility] Comment on above: Fibrocystic breast c [...] End: 11-20-2022 Patient encounter procedure Le Orourke APRN.NARROW GAUGE OPERATOR Work Phone: Cardiology Comment on above: Chronic heart failur e with preserved ejection fraction (HCC) (Primary Dx) Start: 10-29-2022 Telephone encounter Susannah Clemente MD Work Phone: Internal Medicine [place] Comment on above: Results Start: 10-08-2022 Telephone encounter Sandhya Martinez APRN.NARROW GAUGE OPERATOR Work Phone: [facility] Comment on above: Results Start: 10-08-2022 End: 10-08-2022 Subsequent hospital visit by physician [facility] [place] [place] Wstr Mob 2 Work Phone: Radiology Comment on above: Urinary retention [R 33.9] Start: 10-05-2022 End: 10-05-2022 Office outpatient visit 15 minutes Ramandeep Nieto PA-C Work Phone: [facility] Comment on above: Pain with urination (Primary Dx) Start: 10-01-2022 End: 10-01-2022 Office outpatient visit 25 minutes Susannah Clemente MD Work Phone: [facility] [place] Comment on above: Stage 3 chronic kidn [...] 10-01-2022 ambulatory Susannah buchanan MD Work Phone: [facility] Comment on above: Anemia Start: 10-01-2022 E-mail encounter fro m caregiver Susannah Clemente MD Work Phone: [facility] Start: 09-14-2022 End: 09-14-2022 ambulatory Rosendo Rodgers MD Work Phone: Hematology/Oncology Comment on above: Anemia due to stage 3b chronic kidney disease (HCC) (Primary Dx) Start: 09-14-2022 End: 09-14-2022 Telemedicine consultation with patient Rosendo Rodgers MD Work Phone: [facility] Start: 09-09-2022 Telephone encounter Rosendo watkins MD Work Phone: Hematology/Oncology Comment on above: Lab Orders; Care Substation Operator Chief rdinator - Other Start: 09-02-2022 End: 09-02-2022 [...] 15 minutes Susannah Clemente MD Work Phone: [facility] Comment on above: Encounter for immuni zation (Primary Dx); 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 disease, or chronic kidney disease (HCC) Start: 06-01-2022 ambulatory Dennys Guzman MD Work Phone: [facility] [place] Start: 06-01-2022 Patient encounter procedure Dennys Guzman MD Work Phone: [facility] Start: 2022 ambulatory Paul dawson [...] encounter procedure Rosendo Rodgers MD Work Phone: [facility] Start: 04-14-2022 End: 04-14-2022 Patient encounter procedure Susannah Clemente MD Work Phone: Internal Medicine [place] Comment on above: Anemia, unspecified type (Primary [...] Telephone encounter Susannah Clemente MD Work Phone: [facility] Comment on above: Results Start: 02-17-2022 End: 02-17-2022 Nursing evaluation of patient and report Leigh Abreu RN Work Phone: Orthopaedics Comment on above: Primary osteoarthrit is of first carpometacarpal joint of left hand (Primary Dx) Start: 02-10-2022 End: 02-10-2022 ambulatory Kelsi Romeo OT/L Work Phone: [facility] Occupational Therapy Comment on above: Thumb pain, left (Pr imary Dx); Primary osteoarthritis of first carpometacarpal joint of left hand Start: 02-03-2022 End: 02-03-2022 ambulatory Laverne Helms OT/L Work Phone: [facility] Occupational [facility] Comment on above: Thumb pain, left (Pr imary Dx); Primary osteoarthritis of first carpometacarpal joint of left hand Start: 01-27-2022 End: 01-27-2022 ambulatory Laverne Helms OT/L Work Phone: [facility]ational Therapy Comment on above: Thumb pain, left (Pr imary Dx); NO SHOW Start: 01-20-2022 End: 01-20-2022 ambulatory Kelsi Romeo OT/L Work Phone: [facility] Occupational Therapy Comment on above: Thumb pain, [...] Subsequent hospital visit by physician Xr [facility] Fam Work Phone: Radiology Comment on above: Left wrist pain [M25 .532] Start: 07-30-2020 End: 07-30-2020 Subsequent hospital visit by physician [facility] Work Phone: Mammography Comment on above: Fibrocystic breast c hanges of both breasts [N60.11, N60.12] Start: 08-26-2018 Ambulatory SCOTTY BERRY Facility :[facility] Start: 02-07-2018 End: 02-07-2018 Ambulatory [facility] Start: 08-26-2017 End: 08-26-2017 Ambulatory [facility] Start: 10-05-2011 End: 09-19-2020 Patient encounter status Susannah Clemente MD Work Phone: [facility] Procedures Date Procedure Procedure Detail Performing Clinician Start: 04-11-2025 CT angiography of ch est with contrast Dr. Susannah Clemente MD Work Phone: Start: 04-11-[address] Susannah Clemente MD Work Phone: Start: 04-10-2025 D-dimer assay, quantitative Dr. Susannah Clemente MD Work Phone: Comment on above: D-Dimer ELEVATED (>0 .49): Additional studies and clinicalassessments are indicated to conclude diagnosis of:Deep Vein Thrombosis (DVT) or Pulmonary Embolism (PE)CRITICAL VALUE CALLED TO [id number]/24/25 0506 Saurabh Singer.RESULTS READ BACK BY SAME. Start: 04-09-2025 Plain chest X-ray Dr. Megan Clemente MD Work Phone: Start: 04-09-[address] Susannah Clemente MD Work Phone: Start: 04-03-2025 Echo tthrc r-t 2d w/ wom-mode compl spec&colr d Paul Bautista MD Work Phone: Start: 07-26-2024 Level iv surg pathol ogy gross&microscopic exam Joanie House MD Work Phone: Start: 07-17-2024 Urnls dip stick/tabl et rgnt auto w/o microscopy Johan Brantley CLOTH SANDER.NARROW GAUGE OPERATOR Work Phone: Start: 07-14-2024 Radiologic exam chest 2 views Susannah Clemente MD Work Phone: Start: 07-03-2024 Ecg routine ecg w/le ast 12 lds i&r only [facility] Provider Start: 06-26-2024 Urnls dip stick/tabl et rgnt auto w/o microscopy Emilee Crump CLOTH SANDER.NARROW GAUGE OPERATOR Work Phone: Start: 03-28-2024 Adult depression scr eening assessment Susannah Clemente MD Work Phone: Start: 01-07-2024 Screening digital br east tomosynthesis bi Alicia Hylton CLOTH SANDER.NARROW GAUGE OPERATOR Work Phone: Start: 11-06-2023 SARS-CoV-2, Influenz a [...] MD Work Phone: Start: 01-15-2023 Radiologic exam chest 2 views Susannah Clemente MD Work Phone: Start: 01-05-2023 NICOLE SCREENING W MICHELLE Joan izabel Hylton CLOTH SANDER.NARROW GAUGE OPERATOR Work Phone: Start: 11-24-2022 Injection 1 tendon sheath/ligament aponeurosis Erwin Maria MD Work Phone: Start: 10-08-2022 Us retroperitoneal r eal time w/image complete Susannah Clemente MD Work Phone: Start: 10-05-2022 Urnls dip stick/tabl et rgnt auto w/o microscopy Sangita WILKERSONC Work Phone: Start: 08-08-2022 INFLUENZA VACCINE QUADRIVALENT 6 MO - 64 YRS IM Ameya Us DO Work Phone: Start: 07-16-2022 [employer] COVI D-19 BIVALENT BOOSTER VACCINE, AGE 12+ YR Susannah Clemente MD Work Phone: Start: 08-18-2021 NICOLE SCREENING W MICHELLE Mathews heidy Mtz PA-C Work Phone: Start: 12-24-2020 Radex wrist complete minimum 3 views Sangita WILKERSONC Work Phone: Plan of Treatment Date Care Activity Detail Author Start: 12-27-2033 Urine microalbumin profile DTaP,Tdap,Td Vaccine (3 - Td or Tdap) [facility] Start: 02-02-2028 Diabetes Screening Diabetes Screening [facility] Start: 06-24-2027 Diabetes Screening Diabetes Screening [facility] Start: 11-02-2026 Diabetes Screening Diabetes Screening [facility] Start: 04-26-2026 DIABETES SCREEN DIABETES SCREEN [facility] Start: 04-26-2026 Diabetes Screening Diabetes Screening [facility] Start: 03-27-2026 Medicare Annual Wellness Visit Medicare Annual Wellness Visit [facility] Start: 01-08-2026 DIABETES SCREEN DIABETES SCREEN [facility] Start: 10-04-2025 End: 10-04-2025 Patient encounter procedure 10/04/2025 11:30 AM EST Office Visit Cardiology [address] [place] [address] Paul Bautista MD [address] [place] [address] DX: Chronic diastolic HF Cardiology Comment on above: DX: Chronic diastolic HF Start: 10-02-2025 End: 10-02-2025 Patient encounter procedure 10/02/2025 12:50 PM EST Office Visit [facility] [place] [address] [place], [place] [id number] Susannah Clemente MD [address] [place], [place] [id number] Return in about 6 months (around 09/26/2025). [facility] [place] Comment on above: Return in about 6 months (around ). Start: 09-11-2025 DIABETES SCREEN DIABETES SCREEN [facility] Start: 07-24-2025 End: 07-24-2025 Patient encounter procedure 07/24/2025 10:30 AM EDT Appointment Radiology [address] [place] [id number] Acute deep vein thrombosis (DVT) of calf muscle vein of left lower extremity (HC... Radiology Comment on above: Acute deep vein thrombosis (DVT) of calf muscle vein of left lower extremity (HC... Start: 07-19-2025 End: 07-19-2025 Patient encounter procedure 07/19/2025 11:30 AM EDT Office Visit Gastroenterology [address] [address] Virgil Gomez MD [address] [place] [address] Epigastric pain [R10.13] Gastroenterology Comment on above: Epigastric pain [R10.13] Start: 07-18-2025 End: 05-17-2026 CT Chest WO contrast CT CHEST WO IVCON Radiology Routine Lung nodules Expected: 07/18/2025, Expires: 05/17/2026 [facility] Work Phone: Comment on above: Expected: 07/18/2025, Expires: Start: 07-18-2025 End: 05-17-2026 US Lower extremity vein - left US DVT LOWER LEFT Radiology Routine Acute deep vein thrombosis (DVT) of calf muscle vein of left lower extremity (HCC) Expected: 07/18/2025, Expires: 05/17/2026 [facility] Comment on above: Expected: 07/18/2025, Expires: Start: 07-18-2025 End: 07-18-2025 Patient encounter procedure 07/18/2025 10:40 AM EDT Appointment Cat Scan [address] [place] [address] Lung nodules [R91.8] Cat Scan Comment on above: Lung nodules [R91.8] Start: 06-27-2025 End: 06-27-2025 Patient encounter procedure 06/27/2025 10:30 AM EDT Office Visit Gastroenterology [address] [address] Virgil Gomez MD [address] [place] [address] Epigastric pain [R10.13] Gastroenterology Comment on above: Epigastric pain [R10.13] Start: 06-24-2025 Hepatitis B surface antibody level LDL Cholesterol [facility] Start: 06-22-2025 End: 06-22-2025 Patient encounter procedure [facility] Comment on above: Annual breast exam Start: 06-18-2025 Influenza vaccination Influenza Vaccine (#1) [facility] Start: 06-07-2025 End: 06-07-2025 Patient encounter procedure 06/07/2025 11:00 AM EDT Office Visit Audiology [address] [address] Devan Isa, AUD [address] [place] [address] 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] Audiology Comment on above: 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] Start: 06-01-2025 DIABETES SCREEN DIABETES SCREEN [facility] Start: 2025 End: 2025 Patient encounter procedure Radiology Comment on above: increasing sharp pain right hand Start: 05-24-2025 End: 05-24-2025 Patient encounter procedure Molecular Im aging Comment on above: NM PET/CT CARDIAC PERF REST/STRESS Start: 05-21-2025 DIABETES SCREEN DIABETES SCREEN [facility] Start: 05-21-2025 End: 05-21-2025 Patient encounter procedure 05/21/2025 10:30 AM EDT Appointment Radiology [address] [place] [address] Acute deep vein thrombosis (DVT) of calf muscle vein of left lower extremity (HC... Radiology Comment on above: Acute deep vein thrombosis (DVT) of calf muscle vein of left lower extremity (HC... Start: 05-21-2025 End: 05-21-2025 ambulatory 05/21/2025 10:15 AM EDT Results Only [facility] [address] [place] [address] [facility] Comment on above: Lab Start: 05-18-2025 End: 08-17-2025 Fibrin D-dimer FEU [Mass/volume] in Platelet poor plasma D-DIMER Lab Routine Acute deep vein thrombosis (DVT) of calf muscle vein of left lower extremity (HCC) Expected: 05/18/2025, Expires: 08/17/2025 [facility] Comment on above: Expected: 05/18/2025, Expires: Start: 05-18-2025 End: 05-17-2026 US Lower extremity vein - left US DVT LOWER LEFT Radiology Routine Acute deep vein thrombosis (DVT) of calf muscle vein of left lower extremity (HCC) Expected: 05/18/2025, Expires: 05/17/2026 [facility] Comment on above: Expected: 05/18/2025, Expires: Start: 05-14-2025 End: 05-14-2025 ambulatory 05/14/2025 10:40 AM EDT [facility] [place] [address] [place], [place] [address] Susannah Clemente MD [address] [place], [place] [phone] f/u [facility] [place] Comment on above: f/u Start: 04-27-2025 End: 04-27-2025 Patient encounter procedure 04/27/2025 10:40 AM EDT Office Visit Internal [address] [place], [place] [address] Ruby Hurst PA-C [address] [place], [place] [address] Hosp follow up (chest pain) Internal [facility] Comment on above: Hosp follow up (chest pain) Start: 04-24-2025 End: 04-24-2025 Patient encounter procedure 04/24/2025 11:00 AM EDT Appointment Radiology [address] [place], [place] [id number] Epigastric pain [R10.13] Radiology Comment on above: Epigastric pain [R10.13] Start: 04-23-2025 End: 04-23-2025 Patient encounter procedure 04/23/2025 11:00 AM EDT Office Visit [facility] [place] [address] [place], [place] [address] Susannah Clemente MD [address] [place], [place] [address] hosp f/u [facility] Comment on above: hosp f/u Start: 04-17-2025 End: 04-17-2025 Patient encounter procedure 04/17/2025 3:50 PM EDT Office Visit Internal [facility] [address] [place], [place] [address] Susannah Clemente MD [address] [place] [address] dizziness pt feels dt bartolo [facility] [place] Comment on above: dizziness pt feels dt bartolo Start: 04-13-2025 End: 04-13-2025 Patient encounter procedure 04/13/2025 4:00 PM EDT Office Visit Gastroenterology [address] [address] Virgil Gomez MD [address] [place] [address] Epigastric pain [R10.13] Gastroenterology Comment on above: Epigastric pain [R10.13] Start: 04-11-2025 Patient discharge [facility] Start: 04-10-2025 [facility] Start: 04-10-2025 Notification of physician [facility] Start: 04-10-2025 Patient education [facility] Start: 04-10-2025 Provision of activity privileges [facility] Start: 04-10-2025 Pulse taking [facility] Start: 04-10-2025 Taking patient vital signs [facility] Start: 04-10-2025 Wound care [facility] Start: 04-10-2025 [facility] Start: 04-10-2025 Referral to service [facility] Start: 04-10-2025 Ambulation without limitation [facility] Start: 04-10-2025 Assessment of risk of venous thromboembolism [facility] Start: 04-10-2025 Insertion of catheter into peripheral vein [facility] Start: 04-10-2025 Measuring intake and output [facility] Start: 04-10-2025 Providing care according to standard [facility] Start: 04-10-2025 Verification routine [facility] Start: 04-10-2025 [facility] Start: 04-10-2025 Oxygen therapy [facility] Start: 04-10-2025 Referral to regional sales associate [facility] Start: 04-10-2025 Tobacco use cessation education [facility] Start: 04-10-2025 [facility] Start: 04-10-2025 Following clinical pathway protocol [facility] Start: 04-10-2025 Consultation [facility] Start: 04-10-2025 Patient referral to dietitian [facility] Start: 04-09-2025 Electrocardiographic procedure [facility] Start: 04-09-2025 Admission procedure [facility] Start: 04-09-2025 Hospital admission, emergency, from emergency room, medical nature [facility] Start: 04-09-2025 End: 04-09-2025 [facility] Start: 04-07-2025 End: 04-07-2025 Patient encounter procedure 04/07/2025 11:00 AM EDT Office Visit [facility] [place] [address] [place], [place] [id number] Susannah Clemente MD [address] [place] [address] medicare wellness [facility] [place] Comment on above: medicare wellness Start: 04-03-2025 End: 07-03-2025 Basic metabolic 2000 panel - Serum or Plasma BASIC METABOLIC PANEL Lab Routine Chronic diastolic (congestive) heart failure (HCC) Expected: 04/03/2025, Expires: 07/03/2025 [facility] Comment on above: Expected: 04/03/2025, Expires: Start: 04-03-2025 End: 07-03-2025 Natriuretic peptide.B prohormone N-Terminal [Mass/volume] in Serum or Plasma NT PRO BNP Lab Routine Chronic diastolic (congestive) heart failure (HCC) Expected: 04/03/2025, Expires: 07/03/2025 [facility] Work Phone: Comment on above: Expected: 04/03/2025, Expires: Start: 04-03-2025 End: 05-03-2026 PET+CT Heart WO contrast NM PET/CT CARDIAC PERF REST/STRESS Radiology Routine Encounter for screening for cardiovascular disorders Expected: 04/03/2025, Expires: 05/03/2026 [facility] Comment on above: Expected: 04/03/2025, Expires: Start: 04-03-2025 End: 04-03-2025 Patient encounter procedure Cardiology Comment on above: Heart Failure Start: 03-30-2025 End: 03-30-2025 Echocardiography ECHO Cardiology Routine Chronic diastolic (congestive) heart failure (HCC) Expected: 03/30/2025, Expires: 03/30/2025 [facility] Work Phone: Comment on above: Expected: 03/30/2025, Expires: Start: 03-28-2025 Anxiety Screening Anxiety Screening [facility] Start: 03-28-2025 Depression Screening Depression Screening [facility] Start: 03-27-2025 End: 03-27-2025 Patient encounter procedure 03/27/2025 3:50 PM EDT Office Visit [facility] [place] [address] [place], [place] [id number] [place] [address] [place] [id number] MEDICARE WELLNESS [facility] [place] Comment on above: MEDICARE WELLNESS Start: 03-27-2025 End: 06-26-2025 C reactive protein [Mass/volume] in Serum or Plasma by High sensitivity method HIGH SENSITIVITY C-REACTIVE PROTEIN Lab Routine Atherosclerosis of [place] coronary artery of [place] heart without angina pectoris Expected: 03/27/2025, Expires: 06/26/2025 [facility] Work Phone: Comment on above: Expected: 03/27/2025, Expires: Start: 02-20-2025 End: 02-20-2025 Patient encounter procedure Radiology Comment on above: increasing sharp pain right hand Start: 02-15-2025 End: 02-15-2025 Patient encounter procedure 02/15/2025 9:30 AM EDT Office Visit [facility] [place] [address] [place], [place] [address] Susannah Clemente MD [address] [place], [place] [address] Return in about 4 months (around 11/02/2024) for Medicare Wellness. [facility] [place] Comment on above: Return in about 4 months (around 11/02/19) for Medicare Wellness. 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 [facility] [place] Comment on above: Return in about 4 months (around 11/02/19) for Medicare Wellness. Start: 10-18-2024 Advance Directive Discussion Advance Directive Discussion [facility] Start: 07-27-2024 End: 07-27-2024 Patient encounter procedure 07/27/2024 10:30 AM EDT Office Visit Cardiology [address] [address] Exertional dyspnea [R06.09] Cardiology Comment on above: Exertional dyspnea [R06.09] Start: 07-26-2024 End: 07-26-2024 Patient encounter procedure 07/26/2024 1:50 PM EDT Office Visit Dermatology [address] [address] Michelle Choudhary MD [address] [place] [address] follow up Dermatology Comment on above: follow up Start: 07-14-2024 End: 07-14-2024 Patient encounter procedure 07/14/2024 9:30 AM EDT Appointment Radiology [address] [place] [address] XR CHEST 2V FRONTAL/LAT Radiology Comment on above: XR CHEST 2V FRONTAL/LAT Start: 07-12-2024 End: 07-12-2024 Patient encounter procedure 07/12/2024 9:10 AM EDT Office Visit [facility] [address] [place] [address] Beau Garcia MD [address] [place] [address] SOB twice [facility] Comment on above: SOB twice Start: 07-10-2024 End: 07-10-2024 Patient encounter procedure 07/10/2024 11:00 AM EDT Office Visit [facility] [address] [place], [place] [id number] Susannah Clemente MD [address] [place], [place] [address] f/u Internal [facility] Comment on above: f/u Start: 07-03-2024 End: 07-03-2024 Patient encounter procedure 07/03/2024 10:20 AM EDT Office Visit [facility] [address] [place], [place] [id number] Susannah Clemente MD [address] [place], [place] [address] f/u Internal [facility] Comment on above: f/u Start: 06-28-2024 End: 09-27-2024 Basic metabolic 2000 panel - Serum or Plasma BASIC METABOLIC PANEL Lab Routine Essential hypertension 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) Expected: 06/28/2024, Expires: 09/27/2024 [facility] Comment on above: Expected: 06/28/2024, Expires: Start: 06-28-2024 End: 09-27-2024 Lipid 1996 panel - Serum or Plasma LIPID PANEL BASIC Lab Routine Cerebral microvascular disease Expected: 06/28/2024, Expires: 09/27/2024 [facility] Work Phone: Comment on above: Expected: 06/28/2024, Expires: Start: 06-26-2024 End: 09-25-2024 Bacteria identified in Urine by Culture [facility] Work Phone: Comment on above: Expected: 06/26/2024, Expires: Ordered: 06/26/2024 Start: 06-18-2024 Covid-19 Vaccine ( season) Covid-19 Vaccine ( season) [facility] Start: 06-18-2024 Covid-19 Vaccine ( season) Covid-19 Vaccine ( season) [facility] Start: 06-18-2024 Influenza vaccination Influenza Vaccine (#1) [facility] Start: 04-12-2024 Hepatitis B surface antibody level LDL CHOLESTEROL [facility] Start: 03-31-2024 Orders Only 03/31/2024 Orders Only Cardiology [address] [id number] Paul Bautista MD [address] [place] [address] Cardiology Start: 03-30-2024 End: 03-30-2024 Patient encounter procedure 03/30/2024 2:45 PM EDT Office Visit Cardiology [address] [place] [address] Paul Bautista MD [address] [place] [address] Main, Nurse Card [facility] [address] [place] [address] Dx: Chronic diastolic (congestive) heart failure (HCC) [I50.32 (ICD-10-CM)] Cardiology Comment on above: Dx: Chronic diastolic (congestive) heart failure (HCC) [I50.32 (ICD-10-CM)] Start: 03-28-2024 End: 03-28-2024 Patient encounter procedure 03/28/2024 3:50 PM EDT Office Visit [facility] [place] [address] [place], [place] [id number] Susannah Clemente MD [address] [place] [address] Return in about 4 months (around 03/16/2024). [facility] [place] Comment on above: Return in about 4 months (around 03/16/20). Start: 03-19-2024 DIABETES SCREEN DIABETES SCREEN [facility] Start: 01-15-2024 Covid-19 Vaccine ( season) Covid-19 Vaccine () [facility] Start: 11-06-2023 [facility] Start: 11-06-2023 End: 11-06-2023 [facility] Start: 10-18-2023 Behavioral Health Screening Behavioral Health Screening [facility] Start: 09-30-2023 End: 12-30-2023 Basic metabolic 2000 panel - Serum or Plasma BASIC METABOLIC PNL Lab Routine Chronic diastolic (congestive) heart failure (HCC) Expected: 09/30/2023, Expires: 12/30/2023 [facility] Work Phone: Comment on above: Expected: 09/30/2023, Expires: Start: 09-30-2023 End: 12-30-2023 Natriuretic peptide.B prohormone N-Terminal [Mass/volume] in Serum or Plasma NT PRO BNP Lab Routine Chronic diastolic (congestive) heart failure (HCC) Expected: 09/30/2023, Expires: 12/30/2023 [facility] Work Phone: Comment on above: Expected: 09/30/2023, Expires: 4 Start: 07-05-2023 End: 09-04-2023 Thyrotropin [Units/volume] in Serum or Plasma TSH BLD Lab Routine Hypothyroidism, unspecified type Expected: 07/05/2023, Expires: 09/04/2023 [facility] Work Phone: Comment on above: Expected: 07/05/2023, Expires: 3 Start: 06-18-2023 Covid-19 Vaccine () Covid-19 Vaccine () [facility] Start: 06-18-2023 Influenza vaccination [facility] Start: 04-02-2023 End: 11-20-2023 Echocardiography ECHO Cardiology Routine Chronic heart failure with preserved ejection fraction (HCC) Expected: 04/02/2023, Expires: 11/20/2023 [facility] Work Phone: Comment on above: Expected: 04/02/2023, Expires: 4 Start: 01-12-2023 End: 03-14-2023 Basic metabolic 2000 panel - Serum or Plasma BASIC METABOLIC PNL Lab Routine Chronic heart failure with preserved ejection fraction (HCC) Expected: 01/12/2023, Expires: 03/14/2023 [facility] Work Phone: Comment on above: Expected: 01/12/2023, Expires: 3 Start: 01-12-2023 End: 03-14-2023 Natriuretic peptide.B prohormone N-Terminal [Mass/volume] in Serum or Plasma NT PRO BNP Lab STAT Chronic heart failure with preserved ejection fraction (HCC) Expected: 01/12/2023, Expires: 03/14/2023 [facility] Work Phone: Comment on above: Expected: 01/12/2023, Expires: 3 Start: 12-30-2022 End: 03-01-2023 Basic metabolic 2000 panel - Serum or Plasma BASIC METABOLIC PNL Lab Routine Stage 3 chronic kidney disease, unspecified whether stage 3a or 3b CKD (HCC) Expected: 12/30/2022, Expires: 03/01/2023 [facility] Work Phone: Comment on above: Expected: 12/30/2022, Expires: 3 Start: 12-08-2022 Hepatitis B surface antibody level LDL CHOLESTEROL [facility] Start: 11-15-2022 COVID-19 VACCINE (5 - Moderna series) COVID-19 VACCINE (5 - Moderna series) [facility] Start: 10-18-2022 ADVANCE DIRECTIVE DISCUSSION ADVANCE DIRECTIVE DISCUSSION [facility] Start: 10-18-2022 DEPRESSION ASSESSMENT DEPRESSION ASSESSMENT [facility] Start: 09-11-2022 End: 11-11-2022 Ferritin [Mass/volume] in Serum or Plasma [facility] Work Phone: Comment on above: Expected: 09/11/2022, Expires: 3 Start: 09-11-2022 End: 11-11-2022 Iron and Iron binding capacity panel - Serum or Plasma [facility] Work Phone: Comment on above: Expected: 09/11/2022, Expires: 3 Start: 09-02-2022 End: 11-02-2022 Basic metabolic 2000 panel - Serum or Plasma BASIC METABOLIC PNL Lab Routine Chronic heart failure with preserved ejection fraction (HFpEF) (HCC) Expected: 09/02/2022, Expires: 11/02/2022 [facility] Work Phone: Comment on above: Expected: 09/02/2022, Expires: 3 Start: 09-02-2022 End: 11-02-2022 Natriuretic peptide.B prohormone N-Terminal [Mass/volume] in Serum or Plasma NT PRO BNP Lab Routine Chronic heart failure with preserved ejection fraction (HFpEF) (HCC) Expected: 09/02/2022, Expires: 11/02/2022 [facility] Work Phone: Comment on above: Expected: 09/02/2022, Expires: 3 Start: 08-15-2022 End: 10-15-2022 Basic metabolic 2000 panel - Serum or Plasma BASIC METABOLIC PNL Lab Routine 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 disease, or chronic kidney disease (HCC) Expected: 08/15/2022, Expires: 10/15/2022 [facility] Work Phone: Comment on above: Expected: 08/15/2022, Expires: 2 Start: 08-15-2022 Urine microalbumin profile [facility] Start: 06-18-2022 Influenza vaccination INFLUENZA (#1) [facility] Start: 06-14-2022 End: 08-14-2022 Thyrotropin [Units/volume] in Serum or Plasma TSH BLD Lab Routine Hypothyroidism, unspecified type Expected: 06/14/2022, Expires: 08/14/2022 [facility] Work Phone: Comment on above: Expected: 06/14/2022, Expires: 2 Start: 2022 End: 07-29-2022 Basic metabolic 2000 panel - Serum or Plasma BASIC METABOLIC PNL Lab Routine Chronic heart failure with preserved ejection fraction (HFpEF) (HCC) Expected: 2022, Expires: 07/29/2022 [facility] Work Phone: Comment on above: Expected: 2022, Expires: 2 Start: 05-18-2022 End: 07-18-2022 Basic metabolic 2000 panel - Serum or Plasma BASIC METABOLIC PNL Lab Routine 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 disease, or chronic kidney disease (HCC) Chronic heart failure with preserved ejection fraction (HFpEF) (HCC) Expected: 05/18/2022, Expires: 07/18/2022 [facility] Work Phone: Comment on above: Expected: 05/18/2022, Expires: 2 Start: 05-18-2022 End: 07-18-2022 HIGH SENSITIVITY TROPONIN T HIGH SENSITIVITY TROPONIN T Lab Routine Chronic heart failure with preserved ejection fraction (HFpEF) (HCC) Expected: 05/18/2022, Expires: 07/18/2022 [facility] Work Phone: Comment on above: Expected: 05/18/2022, Expires: 2 Start: 05-18-2022 End: 07-18-2022 Natriuretic peptide.B prohormone N-Terminal [Mass/volume] in Serum or Plasma NT PRO BNP Lab Routine 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 disease, or chronic kidney disease (HCC) Chronic heart failure with preserved ejection fraction (HFpEF) (HCC) Expected: 05/18/2022, Expires: 07/18/2022 [facility] Work Phone: Comment on above: Expected: 05/18/2022, Expires: 2 Start: 05-14-2022 End: 07-14-2022 Comprehensive metabolic 2000 panel - Serum or Plasma COMP METABOLIC PANEL Lab Routine Telogen effluvium Encounter for medication monitoring Expected: 05/14/2022, Expires: 07/14/2022 [facility] Work Phone: Comment on above: Expected: 05/14/2022, Expires: 2 Start: 04-17-2022 End: 04-17-2023 Cobalamin (Vitamin B12) [Mass/volume] in Serum or Plasma [facility] Work Phone: Comment on above: Expected: 04/17/2022, Expires: 3 Start: 04-17-2022 End: 04-17-2023 Ferritin [Mass/volume] in Serum or Plasma [facility] Work Phone: Comment on above: Expected: 04/17/2022, Expires: 3 Start: 04-17-2022 End: 06-17-2022 Folate [Mass/volume] in Serum or Plasma [facility] Work Phone: Comment on above: Expected: 04/17/2022, Expires: 2 Start: 04-17-2022 End: 06-17-2022 Haptoglobin [Mass/volume] in Serum or Plasma [facility] Work Phone: Comment on above: Expected: 04/17/2022, Expires: Start: 04-17-2022 End: 04-17-2023 Iron and Iron binding capacity panel - Serum or Plasma [facility] Work Phone: Comment on above: Expected: 04/17/2022 (Approximate), Expi res: 04/17/2023 Start: 12-19-2021 COVID-19 VACCINE (4 - Booster for Moderna series) COVID-19 VACCINE (4 - Booster for Moderna series) [facility] Start: 1996 RSV Vaccine (1 - 1-dose 60+ series) RSV Vaccine (1 - 1-dose 60+ series) [facility] Ambulatory bp mntr w /sw 24 hr+ rec scan lindsey i&r AMBULATORY BP MONITORING Cardiology Routine 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 disease, or chronic kidney disease (HCC) Ordered: 05/18/2022 [facility] Work Phone: Comment on above: Ordered: 05/18/2022 Bacteria identified in Urine by Culture URINE CULTURE Microbiology Routine Pain with urination 10/05/2022 4:32 PM EST [facility] Work Phone: Bacteria identified in Urine by Culture URINE CULTURE Microbiology Routine Urgency of urination 07/17/2024 11:37 AM EDT [facility] Work Phone: End: 01-29-2026 Basic metabolic 2000 panel - Serum or Plasma BASIC METABOLIC PANEL Lab Routine 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 disease, or chronic kidney disease (HCC) Every 6 months for 4 Occurrences starting 01/29/2025 until 01/29/2026 [facility] Comment on above: Every 6 months for 4 Occurrences startin g 01/29/2025 until 01/29/2026 [place] BIC Routine NSTEMI (non-ST elevated myocardial infarction) (HCC) Ordered: 04/17/2025 [facility] Comment on above: Ordered: 04/17/2025 End: 10-01-2023 CBC W Auto Differential panel - Blood CBC + DIFF Lab Routine Anemia due to stage 3b chronic kidney disease (HCC) Every 3 months for 4 Occurrences starting 10/01/2022 until 10/01/2023 [facility] Work Phone: Comment on above: Every 3 months for 4 Occurrences startin g 10/01/2022 until 10/01/2023 End: 01-29-2026 CBC W Auto Differential panel - Blood COMPLETE BLOOD COUNT AND DIFFERENTIAL Lab Routine Anemia due to stage 3b chronic kidney disease (HCC) Every 3 months for 8 Occurrences starting 01/29/2025 until 01/29/2026 [facility] Work Phone: Comment on above: Every 3 months for 8 Occurrences startin g 01/29/2025 until 01/29/2026 End: 01-18-2025 DBT Breast - bilateral screening NICOLE SCREENING W MICHELLE Radiology Routine Personal history of malignant neoplasm of breast Encounter for screening mammogram for malignant neoplasm of breast 1 Occurrences starting 12/20/2023 until 01/18/2025 [facility] Work Phone: Comment on above: 1 Occurrences starting 12/20/2023 until 01/18/2025 End: 01-29-2025 DBT Breast - bilateral screening NICOLE SCREENING W MICHELLE Radiology Routine Encounter for screening mammogram for breast cancer 1 Occurrences starting 12/31/2023 until 01/29/2025 [facility] Work Phone: Comment on above: 1 Occurrences starting 12/31/2023 until 01/29/2025 End: 08-03-2024 DXA-AXIAL SKELETON DXA-AXIAL SKELETON Radiology Routine Asymptomatic postmenopausal state Medicare annual wellness visit, subsequent 1 Occurrences starting 07/05/2023 until 08/03/2024 [facility] Work Phone: Comment on above: 1 Occurrences starting 07/05/2023 until 08/03/2024 DXA-AXIAL SKELETON DXA-AXIAL SKE LETON Radiology Routine Asymptomatic postmenopausal state Medicare annual wellness visit, subsequent 08/04/2023 12:52 PM EDT [facility] Work Phone: ECG COMPLETE ECG COMPLETE ECG Routine 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 disease, or chronic kidney disease (HCC) Exertional dyspnea Ordered: 07/03/2024 [facility] Work Phone: Comment on above: Ordered: 07/03/2024 End: 09-13-2025 Echocardiography ECHO Cardiology Routine Chronic diastolic (congestive) heart failure (HCC) 1 Occurrences starting 09/13/2024 until 09/13/2025 [facility] Work Phone: Comment on above: 1 Occurrences starting 09/13/2024 until 09/13/2025 FECAL LACTOFERRIN/LEUKOCYTES FECAL LACTOFERRIN/LEUKOCYTES Lab Routine Collagenous colitis Ordered: 03/28/2024 [facility] Comment on above: Ordered: 03/28/2024 HEARING TEST/AUDIOGRAM HEARING T EST/AUDIOGRAM Audiology Routine Medicare annual wellness visit, subsequent Decreased hearing of both ears Ordered: 07/05/2023 [facility] Work Phone: Comment on above: Ordered: 07/05/2023 End: 03-28-2026 HEARING TEST/AUDIOGRAM HEARING TEST/AUDIOGRAM Audiology Routine Decreased hearing of both ears 1 Occurrences starting 03/27/2025 until 03/28/2026 [facility] Comment on above: 1 Occurrences starting 03/27/2025 until 03/28/2026 Hemoglobin.gastroint estinal .lower [Presence] in Stool by Immunoassay FECAL OCCULT BLOOD TEST Lab Routine Anemia, unspecified type Ordered: 04/14/2022 [facility] Work Phone: Comment on above: Ordered: 04/14/2022 End: 08-03-2024 Hepatobil syst imag inc gb w/pharma intervenj NM HEPATOBILIARY W EF AND/OR RX Radiology Routine Medicare annual wellness visit, subsequent Epigastric pain 1 Occurrences starting 07/05/2023 until 08/03/2024 [facility] Work Phone: Comment on above: 1 Occurrences starting 07/05/2023 until 08/03/2024 End: 02-08-2025 MG Breast - right Diagnostic for implant NICOLE DIAGNOSTIC RIGHT Radiology Routine Abnormal mammogram 1 Occurrences starting 01/10/2024 until 02/08/2025 [facility] Work Phone: Comment on above: 1 Occurrences starting 01/10/2024 until 02/08/2025 End: 04-26-2026 MR Biliary ducts and Pancreatic duct WO and W contrast IV MRI PANC/ALBERTO WO/W IVCON Radiology Routine Epigastric pain 1 Occurrences starting 03/27/2025 until 04/26/2026 [facility] Comment on above: 1 Occurrences starting 03/27/2025 until 04/26/2026 End: 04-26-2026 MR Unspecified body region 3D post processing MRI 3D POST PROCESSING Radiology Routine Epigastric pain 1 Occurrences starting 03/27/2025 until 04/26/2026 [facility] Comment on above: 1 Occurrences starting 03/27/2025 until 04/26/2026 Patient Education ED URI, Viral, No Abx (Adult) [facility] Work Phone: Patient referral [facility] Work Phone: PT PLAN OF CARE CERTIFICATION PT PLAN OF CARE CERTIFICATION Procedures Routine Acute right-sided thoracic back pain Ordered: 04/08/2023 [facility] Comment on above: Ordered: 04/08/2023 End: 07-03-2025 STRESS ECHO TREADMILL STRESS ECHO TREADMILL Cardiology Routine Exertional dyspnea 1 Occurrences starting 07/03/2024 until 07/03/2025 [facility] Comment on above: 1 Occurrences starting 07/03/2024 until 07/03/2025 Ther px 1/> areas ea ch 15 minutes massage MASSAGE THERAPY Procedures Routine Chronic back pain, unspecified back location, unspecified back pain laterality Ordered: 02/23/2023 [facility] Work Phone: Comment on above: Ordered: 02/23/2023 Troponin T.cardiac [Mass/volume] in Serum or Plasma by High sensitivity method [facility] End: 04-21-2024 US ABD RIGHT UPPER QUADRANT US ABD RIGHT UPPER QUADRANT Radiology Routine Epigastric abdominal tenderness without rebound tenderness 1 Occurrences starting 03/23/2023 until 04/21/2024 [facility] Work Phone: Comment on above: 1 Occurrences starting 03/23/2023 until 04/21/2024 End: 02-08-2025 US Breast - right limited US BREAST LTD RIGHT Radiology Routine Abnormal mammogram 1 Occurrences starting 01/10/2024 until 02/08/2025 [facility] Work Phone: Comment on above: 1 Occurrences starting 01/10/2024 until 02/08/2025 End: 10-31-2023 US KIDNEY/BLADDER US KIDNEY/BLADDER Radiology Routine Urinary retention 1 Occurrences starting 10/01/2022 until 10/31/2023 [facility] Work Phone: Comment on above: 1 Occurrences starting 10/01/2022 until 10/31/2023 End: 10-31-2023 Us pelvic nonobstetric image dcmtn limited/f/u US PELVIS BLADDER Radiology Routine Urinary retention 1 Occurrences starting 10/01/2022 until 10/31/2023 [facility] Work Phone: Comment on above: 1 Occurrences starting 10/01/2022 until 10/31/2023 End: 08-02-2025 XR Chest PA and Lateral XR CHEST 2V FRONTAL/LAT Radiology Routine Exertional dyspnea 1 Occurrences starting 07/03/2024 until 08/02/2025 [facility] Comment on above: 1 Occurrences starting 07/03/2024 until 08/02/2025 [facility] Immunizations Immunization Date Immunization Notes Care Provider Fa cili 08-08-2024 influenza virus vaccine, unspecified formulation Susananh lCemente MD Work Phone: [facility] 08-21-2023 influenza, injectabl e, quadrivalent, contains preservative Immunization [place] Work Phone: [facility] 08-21-2023 influenza virus vaccine, unspecified formulation Susannah Clemente MD Work Phone: [facility] 08-08-2022 influenza, injectabl e, quadrivalent, contains preservative Immunization [place] Work Phone: [facility] 08-08-2022 influenza virus vaccine, unspecified formulation Susannah Clemente MD Work Phone: [facility] 07-16-2022 COVID-19 booster vaccine, age 12+ yr, bivalent (SPark!-Livestar) Susannah Clemente MD Work Phone: [facility] 09-24-2021 zoster vaccine recombinant Kelsi Romeo OT/L Work Phone: [facility] Work Phone: 08-19-2021 influenza, injectabl e, quadrivalent, contains preservative Kelsi Romeo OT/L Work Phone: [facility] 06-25-2021 zoster vaccine recombinant Kelsi Romeo OT/L Work Phone: [facility] 12-05-2020 COVID-19 vaccine, fu ll dose (MODERNA) Kelsi Romeo OT/L Work Phone: [facility] Work Phone: 11-07-2020 COVID-19 vaccine, fu ll dose (MODERNA) Kelsi Romeo OT/L Work Phone: [facility] Work Phone: 08-15-2020 influenza, injectabl e, quadrivalent, contains preservative Kelsi Romeo OT/L Work Phone: [facility] 09-01-2019 influenza, injectabl e, quadrivalent, contains preservative Kelsi Romeo OT/L Work Phone: [facility] 08-12-2018 influenza, injectabl e, quadrivalent, contains preservative Kelsi Romeo OT/L Work Phone: [facility] Work Phone: 07-30-2017 influenza, injectabl e, quadrivalent, contains preservative Kelsi Romeo OT/L Work Phone: [facility] 07-18-2017 influenza, high dose seasonal, preservative-free Kelsi Romeo OT/L Work Phone: [facility] Work Phone: 07-18-2017 influenza, injectabl e, quadrivalent, preservative free [facility] 07-18-2017 influenza, seasonal, injectable, preservative free Kelsi Romeo OT/L Work Phone: [facility] 08-21-2016 influenza, injectabl e, quadrivalent, contains preservative Kelsi Romeo OT/L Work Phone: [facility] 08-12-2015 influenza, high dose seasonal, preservative-free Kelsi Romeo OT/L Work Phone: [facility] 11-22-2014 pneumococcal conjuga te vaccine, 13 valent Kelsi Romeo OT/L Work Phone: [facility] 11-22-2014 pneumococcal polysaccharide vaccine, 23 valent Kelsi Romeo OT/L Work Phone: [facility] Work Phone: 08-16-2014 influenza, seasonal, injectable Kelsi Romeo OT/L Work Phone: [facility] Work Phone: 07-29-2013 influenza virus vaccine, unspecified formulation Kelsi Romeo OT/L Work Phone: [facility] 08-15-2012 influenza virus vaccine, unspecified formulation Kelsi Romeo OT/L Work Phone: [facility] 08-15-2012 tetanus toxoid, redu emma diphtheria toxoid, and acellular pertussis vaccine, adsorbed Kelsi Romeo OT/L Work Phone: [facility] 05-31-2012 pneumococcal conjuga te vaccine, 13 valent Kelsi Romeo OT/L Work Phone: [facility] Work Phone: 08-29-2011 influenza virus vaccine, unspecified formulation Kelsi Romeo OT/L Work Phone: [facility] 08-15-2010 influenza virus vaccine, unspecified formulation Kelsi Romeo OT/L Work Phone: [facility] Work Phone: 08-01-2009 influenza virus vaccine, unspecified formulation Kelsi Romeo OT/L Work Phone: [facility] Work Phone: 10-18-2008 zoster vaccine, live Kelsi Romeo OT/L Work Phone: [facility] Work Phone: 08-24-2008 influenza virus vaccine, unspecified formulation Kelsi Romeo OT/L Work Phone: [facility] Work Phone: 07-20-2008 influenza virus vaccine, unspecified formulation Kelsi Romeo OT/L Work Phone: [facility] 08-26-2007 influenza virus vaccine, unspecified formulation Kelsi Romeo OT/L Work Phone: [facility] 08-13-2006 influenza virus vaccine, unspecified formulation Kelsi Romeo OT/L Work Phone: [facility] 09-04-2005 influenza virus vaccine, unspecified formulation Kelsi Romeo OT/L Work Phone: [facility] Work Phone: 10-18-2004 tetanus and diphther ia toxoids, adsorbed, preservative free, for adult use (2 Lf of tetanus toxoid and 2 Lf of diphtheria toxoid) Kelsi Rosa OT/L Work Phone: [facility] 10-18-2003 pneumococcal polysaccharide vaccine, 23 valent Kelsi Rosa OT/L Work Phone: [facility] 10-18-1994 hepatitis A vaccine, unspecified formulation Kelsi Rosa OT/L Work Phone: [facility] 10-18-1994 hepatitis B vaccine, adult dosage Kelsi Rosa OT/L Work Phone: [facility] Payers Date Payer Category Payer Self-pay [id number] 2020 Medicare MEDICARE MEDICAR E A AND B [id number] 2020-Present [phone] [place] [address] Medicare [id number] 2020 Medicare [id number] 2020 Private Health Insurance PHYSICI ANS [employer] [id number] 2020 Unknown PHYSICIANS LISA [place] PHYSICIANS MUTUAL SUPPLEMENT [id number] 2020-Present [phone] [address] [place] [address] Indemnity [id number] 2020 Unknown PHYSICIANS MUTUA L PHYSICIANS MUTUAL SUPPLEMENT [id number] 2020-Present [phone] [address] [place] [address] Indemnity [id number] 2020 Medicare [id number] 2020 Unknown [id number] Unknown [id number] Unknown [id number] Unknown [id number] Unknown [id number] Unknown [id number] Unknown [id number] Unknown [id number] Social History Date Type Detail Facility Start: 01-20-2012 End: 06-11-2024 Tobacco smoking status LAIS Ex-smoker [facility] Work Phone: Start: 01-19-1955 End: 01-19-1967 History of tobacco use Current smoker [facility] Start: 01-19-1955 End: 01-19-1967 History of tobacco use Cigarette Smoker [facility] Start: 12-29-2021 End: 04-27-2025 Alcohol intake Current drinker of alcohol (finding) [facility] Start: 07-05-2020 History SDOH Alcohol Binge 1 [facility] Start: 09-19-2020 History SDOH Financial 5 [facility] Start: 1935 Sex Assigned At Not on file [facility] Start: 06-29-2020 End: 09-11-2022 Exposure to SARS-CoV-2 (event) Not sure [facility] Work Phone: Start: 05-08-2022 End: 05-18-2022 Exposure to SARS-CoV-2 (event) Unable to assess [facility] Start: 01-20-2012 End: 02-18-2023 Cigarettes smoked current (pack per day) - Reported 1 [facility] Start: 01-20-2012 End: 06-11-2024 Tobacco use and exposure Smokeless tobacco non-user [facility] Start: 03-08-2023 History SDOH Physica l Activity DPW 3 [facility] Start: 03-08-2023 History SDOH Physica l Activity MPS 6 [facility] Start: 03-08-2023 History SDOH Stress 2 [facility] Start: 02-18-2023 End: 03-08-2023 Social connection and isolation panel [facility] In a typical week, how many times do you talk on the telephone with family, friends, or neighbors? Patient refused [facility] Are you now , , , , never or living with a partner? Refused [facility] Do you feel stress - tense, restless, nervous, or anxious, or unable to sleep at night because your mind is troubled all the time - these days [OSQ] Only a little [facility] (I/We) worried whether (my/our) food would run out before (I/we) got money to buy more. DK or Refused [facility] Start: 03-06-2022 Gender identity Identifies as female gender (finding) [facility] How often do you hav e 6 or more drinks on 1 occasion? Never [facility] Start: 11-06-2023 Tobacco smoking status NHIS Unknown if ever smoked [facility] Start: 10-15-2019 None [facility] Start: 10-16-2019 Spouse/ Signif icant Other [facility] Start: 10-16-2019 Non-smoker [facility] Start: 1935 Sex Assigned At Female W [facility] Are you now , , , , never or living with a partner? [facility] Do you feel stress - tense, restless, nervous, or anxious, or unable to sleep at night because your mind is troubled all the time - these days [OSQ] To some extent [facility] NEGATED: Highlighted rowStart: ERICKF History of tobacco use Passive smoker [facility] Goals Date Patient Goal Desired Activity /State Personal health goal Functional Status Date Assessment Result Facility 04-11-2025 Functional status Ambulates [facility] Work Phone: 04-10-2025 Functional status None [facility] Work Phone: 03-27-2025 Total score [AUDIT-C] 0 03/27/20 25 3:59 PM EDT Tara Orona MA [facility] 07-13-2024 Total score [AUDIT-C] -1 024 5:43 AM EDT User, Merlyt [facility] 07-13-2024 Functional status Patient declin ed 07/13/2024 5:43 AM EDT User, Mychart Patient declined [facility] 11-24-2019 Are you deaf, or do you have serious difficulty hearing No 11/24/2019 3:17 PM Mary Harrison (Rn), RN No [facility] 11-24-2019 Are you blind, or do you have serious difficulty seeing, even when wearing glasses No 11/24/2019 3:17 PM Mary Harrison (Rn), RN No [facility] 11-24-2019 Do you have serious difficulty walking or climbing stairs No 11/24/2019 3:17 PM Mary Harrison (Rn), RN No [facility] 11-24-2019 Do you have difficul ty dressing or bathing No 11/24/2019 3:17 PM Mary Harrison (Rn), RN No [facility] 11-24-2019 Because of a physica l, mental, or emotional condition, do you have difficulty doing errands alone such as visiting a physician's office or shopping No 11/24/2019 3:17 PM Mary Harrison (Rn), RN No [facility] Mental Status Date Assessment Result Facility 04-11-2025 Cognitive function Voice/Name [facility] Work Phone: 04-09-2025 Cognitive function Voice/Name [facility] Work Phone: 11-06-2023 Cognitive function Level Of Cons ciousness Awake;Alert;Appropriate;Fol lows Commands [facility] Work Phone: 11-24-2019 Because of a physica l, mental, or emotional condition, do you have serious difficulty concentrating, remembering, or making decisions No 11/24/2019 3:17 PM EST Mary Zavala (Rn), RN No [facility] Clinical Notes 12-22-2019 to 04-27-2025 Ruby Hurst PA-C - 04/27/2025 2:11 PM EDTTelephone Encounter - Nancie Zurita RN - 04/27/2025 1:50 PM EDTTelephone Encounter - Nancie Zurita RN - 04/27/2025 1:50 PM EDT Note Date & Type Note Facility 04-27-2025 History of Present illness Narrative CC: Zenaida Evans is an 89-year-old female with a history of heart failure, presenting for follow-up after a recent hospitalization for an NSTEM, with ongoing symptoms of dizziness, lightheadedness, and dyspnea. The patient consented to the use of Segment software for draft documentation of the visit consistent with [facility]'s Notice of Privacy Practices. HPI: Dizziness and Lightheadedness: - Persistent dizziness and lightheadedness since starting Eliquis BID for a blood clot in the left leg. - Symptoms began after the first or second dose of Eliquis. - Describes dizziness as a spinning sensation, particularly when standing up. - Symptoms last for a few minutes and are alleviated by sitting down or lowering the head. - Uses a cane for balance; denies vision changes or loss during episodes. - No recent imaging of the brain; last imaging was in 2020. Dyspnea: - Dyspnea on exertion, requiring frequent rest periods. - Denies orthopnea or paroxysmal nocturnal dyspnea - Chronic cough for several weeks; denies fever. - No new leg swelling; reports baseline mild edema. - Denies any weight gain - Has not had to take any lasix Recent Hospitalization: - Hospitalized for a suspected mild PA approximately a month ago. - Cardiac catheterization revealed no blockages - Underwent a CT scan of the chest to rule out a pulmonary embolism; results were negative. Follow-Up with Dr. Hannon: - Last seen by Dr. Clemente on April 17; next virtual follow-up scheduled for May 14. - Dr. Clemente noted symptoms of nausea and dizziness, potentially related to Eliquis. - Recommended reassessment after one month with repeat ultrasound and D-dimer. - Dr. Clemente ordered an MRI for a pancreatic cyst, which Zenaida postponed due to feeling unwell. ROS: As noted above in HPI Physical Exam: BP 119/64 Pulse 71 Temp 36.8 C (98.3 F) (Oral) Wt 58.3 kg (128 lb 8.5 oz) SpO2 91% BMI 20.43 kg/m Physical Exam Vitals reviewed. Constitutional: General: She is not in acute distress. Appearance: Normal appearance. HENT: Head: Normocephalic and atraumatic. Nose: Nose normal. Mouth/Throat: Mouth: Mucous membranes are moist. Pharynx: Oropharynx is clear. Eyes: Conjunctiva/sclera: Conjunctivae normal. Cardiovascular: Rate and Rhythm: Normal rate and regular rhythm. Heart sounds: No murmur heard. Pulmonary: Effort: Pulmonary effort is normal. No respiratory distress. Comments: Lung sounds diminished in bases b/l Musculoskeletal: Cervical back: Normal range of motion and neck supple. Right lower leg: Edema present. Left lower leg: Edema present. Comments: Trace pitting edema b/l Skin: General: Skin is warm and dry. Coloration: Skin is not jaundiced or pale. Neurological: General: No focal deficit present. Mental Status: She is alert. Psychiatric: Mood and Affect: Mood normal. Behavior: Behavior normal. Assessment/Plan: 1. Dizziness (R42) - Symptoms of dizziness and lightheadedness, particularly upon standing, coincided with initiation of Eliquis therapy. - Differential is broad including orthostatic hypotension, anemia, intracranial abnormalities such as TIA, stroke, vascular abnormalities such as carotid or vertebral artery stenosis - Discussed with patient I'd like to do a neurologic exam and orthostatic vital signs but she declines at this time. Would like to focus on evaluating the hypoxia first - Patient to follow up after ER visit for further evaluation. 2. Hypoxia (R09.02) - I observed patient on the pulse ox for over 10 minutes. Oxygen saturation levels dropping to 88-89% consistently, which is below patient's baseline - Concern for potential pulmonary embolism given recent DVT - I discussed with patient's PCP, Dr. Clemente. Recommended immediate evaluation in the emergency room for CT chest to rule out pulmonary embolism. - Recommend evaluation at the [place] ER. She states she has arranged transportation and her ride would not be able to wait. She states she will go to [facility]. I did call down there and gave report to a physician at 11:25 AM with my concerns. I did have her sign an AMA form and she verbalizes understanding the risks of , disability,worsening of condition and that she may return to our office or ER, or sinker puller and call 911 at any time The patient has shown capacity for decision making by expressing the choice to leave, understanding the treatment options and plan being offered, and understanding the risks of leaving, including permanent disability and/or , and has had an opportunity to ask questions about their condition. The patient did not appear to be intoxicated, inhibited by chemical, medical, or physical limitations. The patient has demonstrated logical reasoning for their decision to leave and has demonstrated comprehension of the treatment options we offered. In addition, the patient was instructed that upon return they would be treated to our fullest extent without repercussion. Recommend follow up after hospital visit. Ruby Hurst PA-C documented in this encounter [facility] 04-27-2025 Telephone encounter Note Call from pt stating that she is in [place] ED but they are not sure what to do. Communicated with PCP and was advised that PCP has concerns that oxygen at PCP visit today was 88-89% and pt has a DVT, Is concerned about a PE. Since pt could not go to ED in [place] due to transportation issues, pt had to sign a form that she was leaving [facility] against medical advice after visit today. Spoke to [place] ED desk personnel and advised of concerns. The rooms are full now but physician is to be notified of concerns. Pt advised to stay until can be seen. Pt is agreeable. [facility] Work Phone: 04-27-2025 Miscellaneous Notes Call from pt stating that she is in [place] ED but they are not sure what to do. Communicated with PCP and was advised that PCP has concerns that oxygen at PCP visit today was 88-89% and pt has a DVT, Is concerned about a PE. Since pt could not go to ED in [place] due to transportation issues, pt had to sign a form that she was leaving [facility] against medical advice after visit today. Spoke to [place] ED desk personnel and advised of concerns. The rooms are full now but physician is to be notified of concerns. Pt advised to stay until can be seen. Pt is agreeable. documented in this encounter [facility] 04-17-2025 Telephone encounter Note Faxed order to [facility] at [facility] at [phone] Left detailed message on patient's voicemail. [facility] 04-17-2025 Miscellaneous Notes Faxed order to [facility] at [facility] at [phone] Left detailed message on patient's voicemail. Recommend referral to cardiac rehab at [facility]. Please call [phone] Referral in my outbox. Please inform patient once they have referral. documented in this encounter [facility] 04-17-2025 Telephone encounter Note Recommend referral to cardiac rehab at [facility]. Please call [phone] Referral in my outbox. Please inform patient once they have referral. [facility] 04-17-2025 Note HNO ID: [id number] Author: SUSANNAH CLEMENTE MD Service: ? Author Type: Physician Type: Progress Notes Filed: 04/17/2025 17:07 Note Text: Transitional Care Management Progress Note The patients TCM visit was performed within the 7 days of discharge. Patient's Date of discharge: 04/11 Date of initial coordinator contact after discharge: 04/12 Discharge diagnosis: demand ischemia Medication review completed Yes Susannah Clemente MD Provider Documentation: In follow-up of hospitalization, Zenaida Evans is a 89 year old female with the chief complaint of chest pain. I have reviewed the patient?s last hospital course including diagnostic testing performed during this hospitalization, their discharge medications, and my assessment and plan with the patient and any family members present at today?s visit. CTA 04/11 showed no PE. 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 Patient/authorized sales representative leather goods agreed to proceed HPI Zenaida Evans is a 89-year-old female with a history of HTN, hypothyroidism, and recent DVT, presenting for follow-up after a recent hospitalization for chest pressure and elevated troponin levels with her dtr Isa. Zenaida was admitted to the hospital from April 09 to April 11 for increasing chest pressure, nausea, and mild dyspnea over 5 days, with symptoms intensifying in the 24 hours prior to admission. She denies fever, chills, or increased swelling during this period. Initial troponin level was 95, which trended downward during hospitalization. BNP was elevated at 828, WBC count was 5.7, hemoglobin was 12.4, and platelet count was 216. A chest X-ray showed no acute findings, and a CT angiogram of the chest on April 11 revealed no pulmonary embolism but multiple small pulmonary nodules of unclear significance. A cardiac catheterization demonstrated mild disease, estimated at about 30% stenosis. Zenaida was diagnosed with demand ischemia and a DVT in the left lower mid-calf. She was started on Eliquis 5 mg BID for 3 months for the DVT. Since starting Eliquis, she reports intermittent dizziness and a slight feeling of nausea, particularly a couple of hours after taking the morning dose. She denies chest tightness and notes that these symptoms are different from those that led to her ER visit. She is also on levothyroxine, aspirin, labetalol, vitamin D, melatonin, clonidine, furosemide as needed, indapamide, ondansetron, minoxidil, nitroglycerin as needed, and Farxiga 5 mg daily. She reduced the Farxiga dose from 10 mg to 5 mg due to lightheadedness when standing. Zenaida has not taken nitroglycerin since discharge. Two days ago, she experienced a syncopal episode after taking nitroglycerin for high blood pressure (190/90 mmHg) with her dtr present; her blood pressure dropped to 105/60 mmHg, and she nearly fainted. She denies feeling faint during the episode. She reports increased stress due to her own health issues and concerns about her daughter, who is doing well. She is also in the process of arranging in-home support for her , which she finds stressful. She has a low frustration tolerance and feels overwhelmed by the demands on her. She has not yet followed up with her regional sales associate, Dr. Bautista, since her discharge, but has been advised to. No problem-specific Assessment AND Plan notes found for this encounter. Constitutional: (-) fever Cardiovascular: (-) chest tightness Gastrointestinal: (+) nausea Neurological: (+) dizziness, (-) syncope BP 132/72 Pulse 68 Temp 36.7 ?C (98 ?F) (Oral) Wt 58.6 kg (129 lb 3 oz) SpO2 95% BMI 20.54 kg/m? General: No acute distress. CV: No carotid bruits, regular rhythm. Resp: Lungs clear to auscultation bilaterally. MSK/Ext: No edema. Labs: See scanned documents - Troponin: 95 (trending downward, noted as consistent with demand ischemia) - BNP: 828 (slightly high) - WBC: 5.7 - Hemoglobin: 12.4 - Platelets: 216 - D-dimer: 1 (elevated) - eGFR: 32 Imaging: (04/11) CT Angiography Chest: No pulmonary embolism. Multiple small pulmonary nodules of unclear significance. - Chest X-ray: No acute findings. - Lower Extremity Ultrasound: Deep vein thrombosis in the left lower mid-calf. Tests: - Cardiac Catheterization: Mild coronary artery disease with approximately 1. I have reviewed the patient record including associated test results during the last hospitalization Yes 2. I have reviewed Lab test Yes 3. I have reviewed Radiology test Yes 4. I reviewed assessment/plan with the patient/family member Yes Assessment and Plan # Pulmonary nodules (R91.8) # Lung nodules (R91.8) - CT angiogram of the chest on April 11 revealed multiple small pulmonary nodules of unclear significance. No evidence o (more content not included)... [facility] 04-17-2025 History of Present illness Narrative Transitional Care Management Progress Note The patients TCM visit was performed within the 7 days of discharge. Patient's Date of discharge: 04/11 Date of initial coordinator contact after discharge: 04/12 Discharge diagnosis: demand ischemia Medication review completed Yes Susannah Clemente MD Provider Documentation: In follow-up of hospitalization, Zenaida Evans is a 89 year old female with the chief complaint of chest pain. I have reviewed the patient s last hospital course including diagnostic testing performed during this hospitalization, their discharge medications, and my assessment and plan with the patient and any family members present at today s visit. CTA 04/11 showed no PE. 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 Patient/authorized sales representative leather goods agreed to proceed HPI Zenaida Evans is a 89-year-old female with a history of HTN, hypothyroidism, and recent DVT, presenting for follow-up after a recent hospitalization for chest pressure and elevated troponin levels with her dtr Isa. Zenaida was admitted to the hospital from April 09 to April 11 for increasing chest pressure, nausea, and mild dyspnea over 5 days, with symptoms intensifying in the 24 hours prior to admission. She denies fever, chills, or increased swelling during this period. Initial troponin level was 95, which trended downward during hospitalization. BNP was elevated at 828, WBC count was 5.7, hemoglobin was 12.4, and platelet count was 216. A chest X-ray showed no acute findings, and a CT angiogram of the chest on April 11 revealed no pulmonary embolism but multiple small pulmonary nodules of unclear significance. A cardiac catheterization demonstrated mild disease, estimated at about 30% stenosis. Zenaida was diagnosed with demand ischemia and a DVT in the left lower mid-calf. She was started on Eliquis 5 mg BID for 3 months for the DVT. Since starting Eliquis, she reports intermittent dizziness and a slight feeling of nausea, particularly a couple of hours after taking the morning dose. She denies chest tightness and notes that these symptoms are different from those that led to her ER visit. She is also on levothyroxine, aspirin, labetalol, vitamin D, melatonin, clonidine, furosemide as needed, indapamide, ondansetron, minoxidil, nitroglycerin as needed, and Farxiga 5 mg daily. She reduced the Farxiga dose from 10 mg to 5 mg due to lightheadedness when standing. Zenaida has not taken nitroglycerin since discharge. Two days ago, she experienced a syncopal episode after taking nitroglycerin for high blood pressure (190/90 mmHg) with her dtr present; her blood pressure dropped to 105/60 mmHg, and she nearly fainted. She denies feeling faint during the episode. She reports increased stress due to her own health issues and concerns about her daughter, who is doing well. She is also in the process of arranging in-home support for her , which she finds stressful. She has a low frustration tolerance and feels overwhelmed by the demands on her. She has not yet followed up with her regional sales associate, Dr. Bautista, since her discharge, but has been advised to. No problem-specific Assessment & Plan notes found for this encounter. Constitutional: (-) fever Cardiovascular: (-) chest tightness Gastrointestinal: (+) nausea Neurological: (+) dizziness, (-) syncope BP 132/72 Pulse 68 Temp 36.7 C (98 F) (Oral) Wt 58.6 kg (129 lb 3 oz) SpO2 95% BMI 20.54 kg/m General: No acute distress. CV: No carotid bruits, regular rhythm. Resp: Lungs clear to auscultation bilaterally. MSK/Ext: No edema. Labs: See scanned documents - Troponin: 95 (trending downward, noted as consistent with demand ischemia) - BNP: 828 (slightly high) - WBC: 5.7 - Hemoglobin: 12.4 - Platelets: 216 - D-dimer: 1 (elevated) - eGFR: 32 Imaging: (04/11) CT Angiography Chest: No pulmonary embolism. Multiple small pulmonary nodules of unclear significance. - Chest X-ray: No acute findings. - Lower Extremity Ultrasound: Deep vein thrombosis in the left lower mid-calf. Tests: - Cardiac Catheterization: Mild coronary artery disease with approximately 1. I have reviewed the patient record including associated test results during the last hospitalization Yes 2. I have reviewed Lab test Yes 3. I have reviewed Radiology test Yes 4. I reviewed assessment/plan with the patient/family member Yes Assessment and Plan # Pulmonary nodules (R91.8) # Lung nodules (R91.8) - CT angiogram of the chest on April 11 revealed multiple small pulmonary nodules of unclear significance. No evidence of pulmonary embolism. Recommended repeat CT scan of the chest in 3 to 6 months to monitor nodules. Ordered CT scan to be performed between July 18 and October 18. # Acute deep vein thrombosis (DVT) of calf muscle vein of left lower extremity ([facility]) (I82.462) - Diagnosed with DVT in the left lower extremity, mid-calf. Currently on Eliquis 5 mg BID for anticoagulation. Patient experiencing dizziness and nausea, potentially related to Eliquis. Discussed risks and benefits of continuing Eliquis versus switching to Coumadin, emphasizing the stability of Eliquis with current renal function (GFR 32 mL/min). Ordered repeat ultrasound of the left lower extremity and D-dimer test in 1 month to assess clot resolution. If results are negative, will consider reducing Eliquis dose for the subsequent 2 months. Scheduled follow-up virtual visit on May 14 at 10:40 AM to review test results and adjust treatment as necessary. # NSTEMI (non-ST elevated myocardial infarction) ([facility]) (I21.4) # Demand ischemia ([facility]) (I24.89) - Recent hospitalization from April 09 to for increasing chest pressure, nausea, and mild dyspnea. Initial troponin level was 95 ng/L, trending downward during hospitalization. Cardiac catheterization demonstrated mild coronary artery disease. Diagnosed with demand ischemia, likely secondary to stress. BNP level was 828 pg/mL, indicating heart failure. Chest X-ray showed no acute findings. Referred to cardiac rehabilitation program at [facility] to improve cardiovascular fitness and reduce stress. Schedule follow-up with regional sales associate Dr. Bautitsa to discuss recent hospitalization and ongoing management. Consider treatment of blood pressure with imdur in the future. # Nausea (R11.0) # Dizziness (R42) - Symptoms of nausea and dizziness noted, potentially related to Eliquis. Symptoms occur a few hours after morning dose of Eliquis. Discussed potential side effects of Eliquis and importance of maintaining adequate hydration. Will reassess symptoms after 1 month with repeat ultrasound and D-dimer test results. May consider reduction in eliquis dose if d dimer negative and follow up us negative. Follow up 05/14 vv at 10:40. ASSESSMENT/PLAN Susannah Clemente MD April 17, 2025 4:15 PM documented in this encounter [facility] 04-17-2025 Telephone encounter Note Appt scheduled [facility] 04-17-2025 Miscellaneous Notes Appt scheduled Phone ringing busy. Appt on hold dr. Clemente 350pm. Please call pt and see if she can make appt tomorrow Agree with your recommendation to be seen within 24 please assist in scheduling. Patient calling in with concern being lightheaded since taking the eliquis upon discharge from the hospital. Pt afebrile. Pt denies any bleeding, bruising. Pt denies n,v,diarrhea. Pt states she was dizzy when she started the farxiga, and they cut her dose in half. Pt states she is lightheaded when she stands up. Pt drinking 5-6 12oz of water a day. Pt bp 129/78 hr 84. Pt denies cp, shortness of breath. Red flag symptoms provided with understanding. Pt has hospital f/u 04/23/25. Pt wondering if she needs seen sooner or if dr. Clemente just wants to adjust her meds. Please advise. Nursing Triage assessment completed with protocol recommendations for disposition See PCP within 24 hours Care advice reviewed with understanding. Patient advised to contact office or seek urgent evaluation if symptoms persist or worsen. Abnea Peraza RN April 16, 2025 2:39 PM Pt called regarding feeling lightheaded since starting eliquis 04/09/25 when changing positions. Pt states she had similar lightheadedness when she started farxiga and they cut it in half. Pt taking eliquis s/p hospitalization for blood clots per the pt. Pt denies n,v,diarrhea, fever, s/sx bleeding. Pt bp 129/78 hr 84. Red flag symptoms provided with understanding. Pt with hospital f/u 04/23/25. Please advise if pt needs seen sooner Reason for Disposition [1] MODERATE dizziness (e.g., interferes with normal activities) AND [2] has NOT been evaluated by doctor (or GILL BOX TENDER/PA) for this (Exception: Dizziness caused by heat exposure, sudden standing, or poor fluid intake.) Answer Assessment - Initial Assessment Questions 1. DESCRIPTION: Feels woozy upon standing 2. LIGHTHEADED: Woozy upon standing 3. VERTIGO: Pt denies 4. SEVERITY: Mild to moderate 5. ONSET: After starting eliquis 6. AGGRAVATING FACTORS: Position change 7. HEART RATE: 84 8. CAUSE: Pt feels eliquis 9. RECURRENT SYMPTOM: Pt states when she took farxiga and they decreased her dose of the medication and it went away 10. OTHER SYMPTOMS: Pt denies fever, cp, n,v, diarrhea, bleeding Protocols used: Dizziness - [id number] Zenaida is a patient of Susannah Clemente MD today she stated she had a recent hospital admission and they found several small blood clots. She was prescribed Eliquis 5 mg tablets, take one tablet twice daily. She stated she feels dizzy and having concerns about taking this dosage. The patient would like to know if she can have this dosage decreased. Please call today. Patient has been identified by name and birthdate. Duration of symptoms: N/A Person calling: self Call patient at: at home Was an appointment scheduled: No Closing statement: Results or non-symptom based questions: Thank you for calling [facility], your call will be returned within the next business day. Mara Dacosta Pss documented in this encounter [facility] 04-16-2025 Telephone encounter Note Phone ringing busy. Appt on hold dr. Clemente 350pm. Please call pt and see if she can make appt tomorrow [facility] 04-16-2025 Telephone encounter Note Agree with your recommendation to be seen within 24 please assist in scheduling. [facility] 04-16-2025 Telephone encounter Note Patient calling in with concern being lightheaded since taking the eliquis upon discharge from the hospital. Pt afebrile. Pt denies any bleeding, bruising. Pt denies n,v,diarrhea. Pt states she was dizzy when she started the farxiga, and they cut her dose in half. Pt states she is lightheaded when she stands up. Pt drinking 5-6 12oz of water a day. Pt bp 129/78 hr 84. Pt denies cp, shortness of breath. Red flag symptoms provided with understanding. Pt has hospital f/u 04/23/25. Pt wondering if she needs seen sooner or if dr. Clemente just wants to adjust her meds. Please advise. Nursing Triage assessment completed with protocol recommendations for disposition See PCP within 24 hours Care advice reviewed with understanding. Patient advised to contact office or seek urgent evaluation if symptoms persist or worsen. Abena Peraza RN April 16, 2025 2:39 PM Pt called regarding feeling lightheaded since starting eliquis 04/09/25 when changing positions. Pt states she had similar lightheadedness when she started farxiga and they cut it in half. Pt taking eliquis s/p hospitalization for blood clots per the pt. Pt denies n,v,diarrhea, fever, s/sx bleeding. Pt bp 129/78 hr 84. Red flag symptoms provided with understanding. Pt with hospital f/u 04/23/25. Please advise if pt needs seen sooner Reason for Disposition [1] MODERATE dizziness (e.g., interferes with normal activities) AND [2] has NOT been evaluated by doctor (or G[employer] BOX TENDER/PA) for this (Exception: Dizziness caused by heat exposure, sudden standing, or poor fluid intake.) Answer Assessment - Initial Assessment Questions 1. DESCRIPTION: Feels woozy upon standing 2. LIGHTHEADED: Woozy upon standing 3. VERTIGO: Pt denies 4. SEVERITY: Mild to moderate 5. ONSET: After starting eliquis 6. AGGRAVATING FACTORS: Position change 7. HEART RATE: 84 8. CAUSE: Pt feels eliquis 9. RECURRENT SYMPTOM: Pt states when she took farxiga and they decreased her dose of the medication and it went away 10. OTHER SYMPTOMS: Pt denies fever, cp, n,v, diarrhea, bleeding Protocols used: Dizziness - Okmfhajxrpazkjo-MQCOE-OE [facility] 04-16-2025 Telephone encounter Note Zenaida is a patient of Susannah Clemente MD today she stated she had a recent hospital admission and they found several small blood clots. She was prescribed Eliquis 5 mg tablets, take one tablet twice daily. She stated she feels dizzy and having concerns about taking this dosage. The patient would like to know if she can have this dosage decreased. Please call today. Patient has been identified by name and birthdate. Duration of symptoms: N/A Person calling: self Call patient at: at home Was an appointment scheduled: No Closing statement: Results or non-symptom based questions: Thank you for calling [facility], your call will be returned within the next business day. Mara Dacosta Pss [facility] 04-12-2025 Telephone encounter Note See tcm encounter [facility] 04-12-2025 Miscellaneous Notes See tcm encounter Please complete documentation for tcm. Pt scheduled 04/23/25 11am. Patient was discharged from [facility] yesterday. Admitted 04/09-04/11 with non stemi. Please contact and assist in scheduling tcm hospital follow up within 2 wks of discharge. I can do vv on 04/23 or in person in the morning. documented in this encounter [facility] 04-12-2025 Note HNO ID: [id number] Author: ABENA PERAZA, PAULINA Service: ? Author Type: Registered Nurse Type: Progress Notes Filed: 04/12/2025 10:40 Note Text: TRANSITION CARE MANAGEMENT (TCM) INITIAL CONTACT Provider Action/FYI: Follow up Initial contact with patient post discharge, spoke to pt. Patient identified by name and . TCM Eligibility Documentation No recent care coordination documentation related to TCM found. SUMMARY: -Pt discharged from [facility] on 04/11/25. -Follow up appointment on 04/23/25. -Medication review done yes. -Admitted for: Nstemi, ckd, htn CONCERNS: Pt denies only taking eliquis for dvt for short duration per pt NEW MEDICATIONS: Eliquis per pt Changes: indapamide 1.25mg orally daily BRIEF HOSPITAL COURSE: 04/09/25-04/11/25 [facility] 04-12-2025 History of Present illness Narrative TRANSITION CARE MANAGEMENT (TCM) INITIAL CONTACT Provider Action/FYI: Follow up Initial contact with patient post discharge, spoke to pt. Patient identified by name and . TCM Eligibility Documentation No recent care coordination documentation related to TCM found. SUMMARY: -Pt discharged from [facility] on 04/11/25. -Follow up appointment on 04/23/25. -Medication review done yes. -Admitted for: Nstemi, ckd, htn CONCERNS: Pt denies only taking eliquis for dvt for short duration per pt NEW MEDICATIONS: Eliquis per pt Changes: indapamide 1.25mg orally daily BRIEF HOSPITAL COURSE: 04/09/25-04/11/25 documented in this encounter [facility] 04-12-2025 Telephone encounter Note Please complete documentation for tcm. [facility] 04-12-2025 Telephone encounter Note Pt scheduled 04/23/25 11am. [facility] 04-12-2025 Telephone encounter Note Patient was discharged from [facility] yesterday. Admitted 04/09-04/11 with non stemi. Please contact and assist in scheduling tcm hospital follow up within 2 wks of discharge. I can do vv on 04/23 or in person in the morning. [facility] 04-12-2025 Note Patient Outreach (FA MPBR) ZENAIDA EVANS ([id number]) 1935 F Date Time Provider Department 04/12/25 ABENA PERAZA During your visit today, we recorded the following information about you: Abena Peraza, RN 04/12/2025 10:40 AM Signed TRANSITION CARE MANAGEMENT (TCM) INITIAL CONTACT Provider Action/FYI: Follow up Initial contact with patient post discharge, spoke to pt. Patient identified by name and . TCM Eligibility Documentation No recent care coordination documentation related to TCM found. SUMMARY: -Pt discharged from [facility] on 04/11/25. -Follow up appointment on 04/23/25. -Medication review done yes. -Admitted for: Nstemi, ckd, htn CONCERNS: Pt denies only taking eliquis for dvt for short duration per pt NEW MEDICATIONS: Eliquis per pt Changes: indapamide 1.25mg orally daily BRIEF HOSPITAL COURSE: 04/09/25-04/11/25 Allergies As of Date: 04/12/2025 Noted Allergy Reaction SCOPOLAMINE 10/30/2011 1 - [...] MA - Fully Assessed Prescriptions as of 04/12/2025 - indapamide (LOZOL) 2.5 mg tablet Take [...] of 10/05/2022: Problem List As Of Date 04/12/2025 Noted Resolved Hypertensive heart and chronic kidney [...] Breast Cancer [C50.919] 10/13/2011 01/08/2023 hx of breas (more content not included)... [facility] 04-11-2025 Discharge summary [facility] 04-11-2025 Discharge summary Note Date/Time April 11, 2025 3:24pm [facility] Medical Records Department [address] [place] [address] Discharge Summary 04/11/25 1211 MR#: [id number] Acct: [id number] Name: ZENAIDA EVANS Rep #:[id number] : 1935 89 From: Adilson wu DO PCP: Dr. Susannah Clemente MD Status:AD M IN Location: [place] [id number] Providers Date of Admission: 04/09/25 Date of Discharge: 04/11/25 Primary Care Physician: Dr. Susannah Clemente MD Consultations 04/10/25 00:12 Consult: Cardiology Routine Consulting Provider: Vasile Reyes Reason for Consult: Chest Pain EMERGENT Consult: No MD Notified: Yes Date Notified: 04/09/25 Time Notified: 23:45 Method of Notification: ED Physician Initiated Reason For Visit: chest pain with ELEVATED TROPOPIN Diagnosis Discharge Diagnosis (1) NSTEMI (non-ST elevated myocardial infarction): Status: Acute Code(s): I21.4 - Non-ST elevation (NSTEMI) myocardial infarction Medications at Discharge Home Medications levothyroxine 88 mcg tablet 88 mcg PO DAILY thyroid 01/18/18 labetalol 200 mg tablet 100 mg PO BID Blood pressure 10/16/19 melatonin 5 mg capsule 5 mg PO QHS Sleep 10/16/19 clonidine 0.1 mg/24 hr weekly transdermal patch 1 patch transdermal QWEEK Hypertension 11/06/23 indapamide 1.25 mg tablet 1.25 mg PO DAILY Vlood pressure 04/09/25 minoxidil 2.5 mg tablet 2.5 mg PO DAILY Hair 04/09/25 nitroglycerin 0.4 mg sublingual tablet 0.4 mg sublingual PRN Chest pain 04/09/25 biotin 5 mg capsule 5 mg PO DAILY Supplement 04/10/25 dapagliflozin propanediol 5 mg tablet (Farxiga) 5 mg PO DAILY Heart Failure 04/10/25 ketoconazole 2 % shampoo 1 applic topical .2-3 times weekly Rash 04/10/25 apixaban 5 mg tablet (Eliquis) 5 mg PO BID 30 days #60 tabs 04/11/25 Hospital Course Operations None Procedures Cardiac catheterization, EKG, Transthoracic echo and - (Lower extremity duplex ultrasound, CTA chest, chest x-ray) Summary of Care Provided Minutes Spent on Discharge: 35 Hospital Course: Patient is an 89-year-old female who presented to [facility] ED on 04/09/2025 for chest pain. Hospital course as noted below. Patient discharged home in stable condition on 04/11. 1. NSTEMI, acute LLE DVT ? Cardiology followed. Presented with worsening chest pain over the past 4 to 5days. Troponin trend 95 > 86 > 88. EKG with normal sinus rhythm, no ischemic changes. Given history of heart failure as below, patient had left heart cath done that showed only mild disease in the circumflex and RCA and moderate disease up to 50% stenosis in the LAD. Recommendation was for medical management. Echo showed EF 60%, stage I diastolic dysfunction, no other concerning findings. D-dimer was mildly elevated on admit and lower extremity duplex ultrasound showed acute DVT in the left gastrocnemius and posterior tibial veins. CTA chest on 04/11 showed no PE. Discussed with patient and family and will treat with Eliquis 5 mg twice daily with plan for 3 months of anticoagulation therapy. Will not give loading dose given this is a small DVT and we wish to minimize bleeding risk. Recommend repeat lower extremity duplex ultrasound in 3 months for further evaluation and if DVT has resolved, suspect patient will be okay to discontinue anticoagulation therapy. Recommend outpatient follow up with [facility] cardiology as needed. 2. Pulmonary nodules ? CTA chest on 04/11 showed multiple small pulmonary nodules of unclear significance. Patient with no other concerning findings and stable on room air. Recommend repeat CT chest in 3 to 6 months for further evaluation. 3. CKD stage IIIb ? Patient stable at baseline creatinine 1.3-1.5 during hospitalization. 4. Chronic HFpEF, hypertension ? Follows with [facility] cardiology. Echo findings on admit as above. Continue home labetalol, indapamide, and weekly clonidine patch. 5. Hypothyroidism ? Continue home Synthroid. Total clinical time spent by myself addressing the patient's medical issues, reviewing all the data, and collaborating with patient's care team: 35 minutes. Physical Exam Const alert, oriented x3, no apparent distress and average body habitus Constitutional Narrative: Pleasant elderly female, energy level improved from admission, sitting back comfortably in bed, conversing normally, in no acute distress. General Appearance: cooperative and comfortable HEENT normocephalic, head/scalp atraumatic, hearing grossly normal bilaterally, nasal mucous membranes and turbinates normal and moist oral mucous membranes Eyes PERRL, EOMs intact bilaterally and conjunctivae normal Neck full ROM Chest inspection of chest normal Resp normal respiratory effort, normal air movement, no use of accessory muscles and clear to auscultation bilaterally Cardio regular rate, regular rhythm, no murmurs and peripheral pulses 2+ throughout GI normal to inspection, nondistended, normoactive bowel sounds, soft to palpation,non-tender and non-distended Back/Spine normal ROM Extremity full ROM Extremity Narrative: Trace lower extremity nonpitting edema noted bilaterally, stable. Skin no rashes or lesions noted Psych mental status grossly normal Medical Records Data Medical Nutrition Assessment Dietitian: Malnutrition Criteria Met Start: 04/10/25 11:16 Freq: Status: Active Protocol: Document 04/10/25 11:16 SB (Rec: 04/10/25 11:16 SB [id number]) Nutrition Malnutrition Evidence of Yes Malnutrition Exists Malnutrition (severe Acute Illness/Injury ): Evidenced By Suboptimal Energy Intake (Moderate),Weight Loss ( Moderate) Intake Problem Inadequate Oral Intake Etiology related to cardio intervention Signs/Symptoms as evidenced by NPO Status Active Problem Clinical Problem Acute Disease or Injury Related Malnutrition Etiology moderate related to inadequate oral intake Signs/Symptoms as evidenced by PO meeting <75% of estimated nutrition needs x 1 week and 2% unintentional weight loss x 1 week. Status Active Problem Recommendation Dietitian Recommend advanced diet as tolerated to liberal regular Recommendations/ diet due to malnutrition. Changes Continue 120ml EPHP TID with medpass, as diet is advanced. Will monitor weight trends. Weight / BMI Weight Weight: 57.6 kg Body Mass Index (BMI) 20.5 ABG / Lab / Microbiology Data 04/11/25 03:23 04/11/25 03:23 Laboratory: Laboratory Results - last 24 hr 04/11/25 03:23: WBC 4.9, RBC 3.59 L, Hgb 11.3 L, Hct 33.4 L, MCV 93.0, MCH 31.5,MCHC 33.8, RDW Std Deviation 43.1, RDW Coeff of Gabriella 12.7, Plt Count 210, MPV 9.7, Sodium 140, Potassium 4.3, Chloride 105, Carbon Dioxide 24.1, Anion Gap 11,BUN 25 H, Creatinine 1.19, Estim Creat Clear Calc 29.71 L, Est GFR (MDRD) Non-Af44 L, BUN/Creatinine Ratio 20.8 H, Glucose 84, Calcium 9.2 Radiography Diagnostic Testing: Radiology Impression Venous Doppler Study 04/10/25 05:14 Interpretation Summary Acute deep vein thrombosis noted in the left gastrocnemius vein, posterior tibial vein. Hypoechoic, non vascular structure noted right popliteal fossa measuring 1.18cm x 2.28cm Ordering Physician: Migel Godoy Referring Physician: Susannah Clemente Performed By: Treva Singer, RDCS, RVT Chest CTA 04/11/25 08:18 IMPRESSION: There is no visible pulmonary embolus. There is a 0.5 cm solid pulmonary nodule in the right upper lung, image 223/240.. There is a 0.6 cm solid pulmonary nodule in the right upper lung, image 223/240. There is a 0.4 cm solid peripheral pulmonary nodule in the right upper lung, image 204/240. There is a 0.4 cm solid pulmonary nodule in the right midlung, image 107/240. There are tree-in-bud nodular densities in the right middle lobe. There is a 0.6 cm solid nodular density in the left lingularsegment, image 61/240. There is a 1.0 x 0.7 irregular solid density in the left upper lung, image 209/240. follow-up is recommended per Fleischner criteria. There is a 0.3 cm nonobstructing stone partly visible in the left kidney. Reading Location: [facility] D/C Instructions DC O2, CPAP, BIPAP Needs Home O2 Discharge instructions: No Meaningful Use Info Meaningful Use Meaningful Use Diagnoses (Choose all that apply): None applicable Ischemic Stroke Statin Dosing Therapy Reference: STATIN DOSE THERAPY REFERENCE: * Patients > 75 years receive moderate or high dose statin therapy. * Patients 75 years or YOUNGER should receive HIGH intensity statin dose unless contraindicated. You will be required to document reason for non-treatment if statin daily dose does not meet guidelines. HIGH DOSE STATIN THERAPY DAILY Atorvastatin > than or = to 40 mg Rosuvastatin > than or = to 20 mg Amlodipine + Atorvastatin > than or = to 2.5/40 mg Ezetimibe + Simvastatin 10/80 mg Simvastatin 80mg Discharge Plan Admission Admit Date/Time: 04/09/25 23:42 Primary Reason for Your Visit: Chest pain Attending Provider: Adilson Melchor Primary Care Provider: Susannah Clemente Consulting Providers: Vasile Reyes; Migel Godoy Discharge Orders/Prescriptions Prescriptions: New Eliquis 5 mg tablet 5 mg PO BID 30 Days Qty: 60 2RF Continued levothyroxine 88 MCG tablet 88 mcg PO DAILY labetalol 200 MG tablet 100 mg PO BID melatonin 5 MG capsule 5 mg PO QHS clonidine 0.1 mg/24 hr patch weekly 1 patch transdermal QWEEK Patient Comments: Apply 1 patch topically one time a week as directed minoxidil 2.5 mg tablet 2.5 mg PO DAILY indapamide 1.25 mg tablet 1.25 mg PO DAILY nitroglycerin 0.4 mg tablet, sublingual 0.4 mg sublingual PRN dapagliflozin propanediol [Farxiga] 5 mg tablet 5 mg PO DAILY ketoconazole 2 % shampoo 1 applic topical .2-3 times weekly biotin 5 mg capsule 5 mg PO DAILY Discontinued aspirin 81 MG tablet,chewable 81 mg PO DAILY@0800 olanzapine .ROUTE PRN (Reason: nausea) Referrals / Follow Up: Susannah Clemente MD [Primary Care Provider] - 04/27/25 10:40 am (appointment with Ruby Levy) Disposition Disposition (needs filled in before D/C Order can be placed): Home, Self Care Charges/Coding Visit Charges Inpatient E&M: 73519 Disch Hosp >30min 04/11/25 1526 <Electronically signed by Adilson Melchor DO> Cosigner Signature (if applicable): CC: Dr. Adilson Melchor DO; Dr. Susannah Clemente MD~ Signed [facility] Work Phone: [phone]) 314-684006-25-2025 [facility] Medical Records Department [address] [place] [address] Discharge Summary 04/11/25 1211 MR#: [id number] Acct: [id number] Name: ZENAIDA EVANS Rep #: [id number] : 1935 89 From: Adilson Melchor DO PCP: Dr. Susannah Clemente MD Status:ADM IN [id number] Prov[facility] Date of Admission: 04/09/25 Date of Discharge: 04/11/25 Primary Care Physician: Dr. Susannah Clemente MD Consultations 04/10/25 00:12 Consult: Cardiology Routine Consulting Provider: Vasile Reyes Reason for Consult: Chest Pain EMERGENT Consult: No MD Notified: Yes Date Notified: 04/09/25 Time Notified: 23:45 Method of Notification: ED Physician Initiated Reason For Visit: chest pain with ELEVATED TROPOPIN Diagnosis Discharge Diagnosis (1) NSTEMI (non-ST elevated myocardial infarction): Status: Acute Code(s): I21.4 - Non-ST elevation (NSTEMI) myocardial infarction Medications at Discharge Home Medications levothyroxine 88 mcg tablet 88 mcg PO DAILY thyroid 01/18/18 labetalol 200 mg tablet 100 mg PO BID Blood pressure 10/16/19 melatonin 5 mg capsule 5 mg PO QHS Sleep 10/16/19 clonidine 0.1 mg/24 hr weekly transdermal patch 1 patch transdermal QWEEK Hypertension 11/06/23 indapamide 1.25 mg tablet 1.25 mg PO DAILY Vlood pressure 04/09/25 minoxidil 2.5 mg tablet 2.5 mg PO DAILY Hair 04/09/25 nitroglycerin 0.4 mg sublingual tablet 0.4 mg sublingual PRN Chest pain 04/09/25 biotin 5 mg capsule 5 mg PO DAILY Supplement 04/10/25 dapagliflozin propanediol 5 mg tablet (Farxiga) 5 mg PO DAILY Heart Failure 04/10/25 ketoconazole 2 % shampoo 1 applic topical .2-3 times weekly Rash 04/10/25 apixaban 5 mg tablet (Eliquis) 5 mg PO BID 30 days #60 tabs 04/11/25 Hospital Course Operations None Procedures Cardiac catheterization, EKG, Transthoracic echo and - (Lower extremity duplex ultrasound, CTA chest, chest x-ray) Summary of Care Provided Minutes Spent on Discharge: 35 Hospital Course: Patient is an 89-year-old female who presented to [facility] ED on 04/09/2025 for chest pain. Hospital course as noted below. Patient discharged home in stable condition on 04/11. 1. NSTEMI, acute LLE DVT ??? Cardiology followed. Presented with worsening chest pain over the past 4 to 5 days. Troponin trend 95 > 86 > 88. EKG with normal sinus rhythm, no ischemic changes. Given history of heart failure as below, patient had left heart cath done that showed only mild disease in the circumflex and RCA and moderate disease up to 50% stenosis in the LAD. Recommendation was for medical management. Echo showed EF 60%, stage I diastolic dysfunction, no other concerning findings. D- dimer was mildly elevated on admit and lower extremity duplex ultrasound showed acute DVT in the left gastrocnemius and posterior tibial veins. CTA chest on 04/11 showed no PE. Discussed with patient and family and will treat with Eliquis 5 mg twice daily with plan for 3 months of anticoagulation therapy. Will not give loading dose given this is a small DVT and we wish to minimize bleeding risk. Recommend repeat lower extremity duplex ultrasound in 3 months for further evaluation and if DVT has resolved, suspect patient will be okay to discontinue anticoagulation therapy. Recommend outpatient follow up with [facility] cardiology as needed. 2. Pulmonary nodules ??? CTA chest on 04/11 showed multiple small pulmonary nodules of unclear significance. Patient with no other concerning findings and stable on room air. Recommend repeat CT chest in 3 to 6 months for further evaluation. 3. CKD stage IIIb ??? Patient stable at baseline creatinine 1.3-1.5 during hospitalization. 4. Chronic HFpEF, hypertension ??? Follows with [facility] cardiology. Echo findings on admit as above. Continue home labetalol, indapamide, and weekly clonidine patch. 5. Hypothyroidism ??? Continue home Synthroid. Total clinical time spent by myself addressing the patient's medical issues, reviewing all the data, and collaborating with patient's care team: 35 minutes. Physical Exam Const alert, oriented x3, no apparent distress and average body habitus Constitutional Narrative: Pleasant elderly female, energy level improved from admission, sitting back comfortably in bed, conversing normally, in no acute distress. General Appearance: cooperative and comfortable HEENT normocephalic, head/scalp atraumatic, hearing grossly normal bilaterally, nasal mucous membranes and turbinates normal and moist oral mucous membranes Eyes PERRL, EOMs intact bilaterally and conjunctivae normal Neck full ROM Chest inspection of chest normal Resp normal respiratory effort, normal air movement, no use of accessory muscles and clear to auscultation bilaterally Cardio regular rate, regular rhythm, no murmurs and peripheral pulses 2+ throughout GI norm (more content not included)...[facility]06-25-2025 Radiology Diagnostic study note [facility] Imaging Services [address] [place], [place] [id number] CTA Chest W/WO Contrast MR#: [id number] Acct: [id number] Name: ZENAIDA EVANS Rep #: [id number] : 1935 F 89 From: Krystal Garcia MD PCP: Dr. Susannah Clemente MD Status: AD M IN Study:CTA Chest W/WO Contrast Date of Exam: 04/11/25 Exam# [id number] Ordering Dr: Adilson Gold DO PROCEDURE: CTA CHEST W/WO CONTRAST 04/11/2025 REASON FOR EXAM: ACUTE DVT, EVAL FOR PE TECHNIQUE: CTA CHEST W/WO CONTRAST Multiplanar Sagittal and Coronal images were obtained. CONTRAST: 54 cc Isovue 370 One or more dose reduction techniques were used (e.g., Automated exposure control, adjustment of the mA and/or kV according to patient size, use of iterative reconstruction technique). RADIATION DOSE SUMMARY: DLP: 110.03 mGycm COMPARISON: April 09, 2025 chest x-ray FINDINGS: Hardware: None Lymph nodes: There is no pathologic adenopathy by size criteria. Heart: Intact Atherosclerotic calcifications are visible. RV/LV Diameter Ratio: 0.8 Thoracic Aorta: Intact Pulmonary Vessels: Main pulmonary artery Hounsfield units = 693. There is no visible pulmonary embolus. Lungs and Airways: Scar is noted at the apices. There is a 0.5 cm solid pulmonary nodule in the right upper lung, image 223/240.. There is a 0.6 cm solid pulmonary nodule in the right upper lung, image 223/240. There ahmet 0.4 cm solid peripheral pulmonary nodule in the right upper lung, image 204/240. There is a 0.4 cm solid pulmonary nodule in the right midlung, image 107/240. There are tree-in-bud nodular densities in the right middle lobe. There is a 0.6 cm solid nodular density in the left lingular segment, image 61/240. There is a 1.0 x 0.7 irregular solid density inthe left upper lung,image 209/240. Pleura: Nodular pleural thickening is present in the right and left. Upper Abdomen: There is a 0.3 cm nonobstructing stone partly visible in the leftkidney. Bones: There is no acute bony abnormality. CT/CTA Chest W/WO Contrast IMPRESSION: There is no visible pulmonary embolus. There is a 0.5 cm solid pulmonary nodule in the right upper lung, image 223/240.. There is a 0.6 cmsolid pulmonary nodule in the right upper lung, image 223/240. There is a 0.4 cm solid peripheral pulmonary nodule in the right upper lung, image 204/240. There is a 0.4 cm solid pulmonary nodule in the right midlung, image 107/240. There are jevd-ad-dfilbmutmo densities in the right middle lobe. There is a 0.6 cm solid nodular density in the left lingularsegment, image 61/240. There is a 1.0 x 0.7 irregular solid density in the left upper lung, image 209/240. follow-up is recommended per Fleischner criteria. There is a 0.3 cm nonobstructing stone partly visible in the left kidney. Reading Location: [facility] CC: Dr. Adilson Melchor DO; Dr. Susannah Clemente MD ~ [employer]: Signed [facility]06-24-2025 Progress note Author Adilson Melchor [facility] Note Date/Time April 10, 2025 4:45 pm [facility] Medical Records Department [address] [place] [address] Progress Note - Hospitalist 04/10/25 5999 MR#: [id number] Acct: [id number] Name: ZENAIDA EVANS Rep #:[id number] : 1935 89 From: Adilson wu DO PCP: Dr. Susannah Clemente MD Status:AD M IN Location: [place] [id number] Reason for Visit Reason for Visit: Diagnoses Essential (primary) hypertension (04/09/25) Hypertensive emergency (04/09/25) Non-ST elevation (NSTEMI) myocardial infarction (04/09/25) Chronic diastolic (congestive) heart failure (04/09/25) Other chest pain (04/09/25) Other specified abnormal findings of blood chemistry (04/09/25) Subjective Subjective Saw patient at bedside this morning, multiple family members present. Patient was sitting back comfortably in bed, conversing normally, in no acute distress. She denied any chest pain or shortness breath at rest. Plan was for left heart cath for further evaluation for coronary disease. I saw the patient again this afternoon. Left heart cath was negative for coronary disease. However, lower extremity duplex ultrasound preliminary reportshowed small clots in her left gastrocnemius vein and left posterior tibial vein. Given her elevated troponins and chest pain with exertion on admission, cannot rule out PE. Notably patient is not hypoxic on room air and echo showed no right heart strain. Because patient had contrast with left heart cath today and has CKD stage IIIb, I recommended that CTA chest for evaluation for PE not be done until tomorrow morning. They were agreeable with this plan. Objective Data Objective Data Vital Signs: Vital Signs Temp Pulse Resp BP Pulse Ox O2 Del Method O2 Flow Rate 96.0 F L 55 L 13 162/71 H 92 Room Air 95 04/10/25 13:43 04/10/25 13:43 04/10/25 13:43 04/10/25 13:43 04/10/25 13:43 04/10/25 13:43 04/10/25 08:56 Oxygen Flow Rate (L/min) 95 Oxygen Delivery Method Room Air Weight: 57.6 kg Body Mass Index (BMI) 20.5 Intake & Output: Intake and Output for Last 24 Hours 04/08/25 04/09/25 04/10/25 23:59 23:59 23:59 Intake Total 70.83 / 70.83 Balance 70.83 / 70.83 Medical Nutrition Assessment Dietitian: Malnutrition Criteria Met Start: 04/10/25 11:16 Freq: Status: Active Protocol: Document 04/10/25 11:16 SB (Rec: 04/10/25 11:16 SB [id number]) Nutrition Malnutrition Evidence of Yes Malnutrition Exists Malnutrition (severe Acute Illness/Injury ): Evidenced By Suboptimal Energy Intake (Moderate),Weight Loss ( Moderate) Intake Problem Inadequate Oral Intake Etiology related to cardio intervention Signs/Symptoms as evidenced by NPO Status Active Problem Clinical Problem Acute Disease or Injury Related Malnutrition Etiology moderate related to inadequate oral intake Signs/Symptoms as evidenced by PO meeting <75% of estimated nutrition needs x 1 week and 2% unintentional weight loss x 1 week. Status Active Problem Recommendation Dietitian Recommend advanced diet as tolerated to liberal regular Recommendations/ diet due to malnutrition. Changes Continue 120ml EPHP TID with medpass, as diet is advanced. Will monitor weight trends. Lab / Micro Data 04/10/25 04:23 04/10/25 04:23 Labs: Laboratory Results - last 24 hr 04/09/25 19:24: WBC 5.7, RBC 3.95 L, Hgb 12.4, Hct 37.2, MCV 94.2, MCH 31.4, MCHC 33.3, RDW Std Deviation 44.4 H, RDW Coeff of Gabriella 12.9, Plt Count 216, MPV 9.7, Immature Gran % (Auto) 0.200, Neut % (Auto) 49.3, Lymph % (Auto) 32.1, [place]% (Auto) 12.7 H, Eos % (Auto) 5.2 H, Baso % (Auto) 0.5, Absolute Neuts (auto) 2.8, Absolute Lymphs (auto) 1.84, Nucleated RBC % 0, Sodium 138, Potassium 4.7, Chloride 101, Carbon Dioxide 25.2, Anion Gap 12, BUN 31 H, Creatinine 1.54 H, Estim Creat Clear Calc 23.40 L, Est GFR (MDRD) Non-Af 32 L, BUN/Creatinine Ratio 20.3 H, Glucose 98, Calcium 9.5, Troponin T High Sens 95 H*, NT pro BNP II 828 04/09/25 21:20: Troponin T Hi Sens 2 Hr 86 H* 04/09/25 21:54: PT 13.6, INR 1.0, APTT 28.4 04/09/25 23:27: Troponin T Hi Sens 4Hr 88 H* 04/10/25 04:23: WBC 5.6, RBC 3.72 L, Hgb 11.6 L, Hct 34.1 L, MCV 91.7, MCH 31.2,MCHC 34.0, RDW Std Deviation 42.3, RDW Coeff of Gabriella 12.6, Plt Count 195, MPV 9.5, APTT 180.0 H*, D-Dimer Quant (PE/DVT) 1.00 H*, Sodium 139, Potassium 4.2, Chloride 103, Carbon Dioxide 26.8, Anion Gap 10, BUN 27 H, Creatinine 1.31 H, Estim Creat Clear Calc 26.99 L, Est GFR (MDRD) Non-Af 39 L, BUN/Creatinine Ratio 20.9 H, Glucose 106 H, Calcium 9.4, Total Bilirubin 0.54, AST 19, ALT 22, Alkaline Phosphatase 69, Total Protein 6.3, Albumin 3.8, Globulin 2.5, Albumin/Globulin Ratio 1.6, Triglycerides 54, Cholesterol 169, LDL Cholesterol, Calc 96, VLDL Cholesterol 11, HDL Cholesterol 62, Cholesterol/HDL Ratio 2.74, TSH 2.150 Radiography Diagnostic Testing: Radiology Impression Chest X-Ray 04/09/25 19:38 IMPRESSION: Sequela of COPD, without an acute cardiopulmonary abnormality. Reading Location: [facility] Echocardiogram 04/10/25 00:12 Interpretation Summary The left ventricular ejection fraction is 60 %. Normal LV size. Apical noncompaction noted There is mild to moderate mitral annular calcification. Stage 1 diastolic dysfunction. The global longitudinal strain is normal. The global longitudinal strain = - 18.9% (normal). Ordering Physician: Migel Godoy Performed By: Alysha Conner RDCS Physical Exam Const alert, oriented x3, no apparent distress and average body habitus Constitutional Narrative: Pleasant elderly female, mildly fatigued appearing but otherwise sitting back comfortably in bed, conversing normally, in no acute distress. General Appearance: cooperative and comfortable HEENT normocephalic, head/scalp atraumatic, hearing grossly normal bilaterally, nasal mucous membranes and turbinates normal and moist oral mucous membranes Eyes PERRL, EOMs intact bilaterally and conjunctivae normal Neck full ROM Chest inspection of chest normal Resp normal respiratory effort, normal air movement, no use of accessory muscles and clear to auscultation bilaterally Cardio regular rate, regular rhythm, no murmurs and peripheral pulses 2+ throughout GI normal to inspection, nondistended, normoactive bowel sounds, soft to palpation,non-tender and non-distended Back/Spine normal ROM Extremity full ROM Extremity Narrative: Trace lower extremity nonpitting edema noted bilaterally. Skin no rashes or lesions noted Psych mental status grossly normal Assessment & Plan Assessment/Plan (1) NSTEMI (non-ST elevated myocardial infarction): PLAN: Plan Patient is an 89-year-old female who presented to [facility] ED on 04/09/2025 for chest pain. 1. NSTEMI, acute LLE DVT with concern for PE ? Cardiology following. Presented with worsening chest pain over the past 4 to 5 days. Troponin trend 95 > 86 > 88. EKG with normal sinus rhythm, no ischemicchanges. Given history of heart failure as below, patient was taken for left heart cath this morning. Left heart cath showed mild disease in the circumflex and RCA and moderate disease up to 50% stenosis in the LAD. Recommendation was for medical management. Echo showed EF 60%, stage I diastolic dysfunction, no other concerning findings. D-dimer was mildly elevated on admit and lower extremity duplex ultrasound preliminary report shows acute DVT in the left gastrocnemius and posterior tibial veins. Cannot rule out PE. As patient had contrast with cath today, we will plan for CTA chest tomorrow morning. Will continue with IV fluids till after CT tomorrow given CKD as below. Okay for heparin subcu for now and pending CT results, will determine if patient needs anticoagulation on discharge. 2. CKD stage IIIb ? Patient stable at baseline creatinine 1.3-1.5. Did receive IV contrast for cath as above, continue to monitor daily BMP. 3. Chronic HFpEF, hypertension ? Follows with [facility] cardiology. Echo findings on admit as above. Continue home labetalol, indapamide, and weekly clonidine patch. 4. Hypothyroidism ? Continue home Synthroid. DVT prophylaxis: Heparin subcu CODE STATUS: Full code, unverified Expected disposition: Home, 1 to 2 days Total clinical time spent by myself addressing the patient's medical issues, reviewing all the data, and collaborating with patient's care team: 35 minutes. Charges/Coding Visit Charges Inpatient E&M: 68627 Subs Hosp L2 04/10/25 1645 <Electronically signed by Adilson Melchor DO> Cosigner Signature (if applicable): CC: ~ Signed [facility] Work Phone: [phone]) 630-426606-24-2025 Discharge summary Author [facility] Note Date/Time April 10, 2025 3:00 pm [facility] Medical Records Department [address] [place] [address] Instructions for Home/Discharge Instructions 04/10/25 1439 MR#: [id number] Acct: [id number] Name: ZENAIDA EVANS Rep #:[id number] : 1935 89 From: Adilson wu DO PCP: Dr. Susannah Clemente MD Status:AD M IN Discharge Instructions DC O2, CPAP, BIPAP needs Home O2 Discharge instructions: No Follow Up Care Test Results: Test results from this visit will be discussed in further detail at your follow- up appointment, if applicable. Discharge Plan Admission Admit Date/Time: 04/09/25 23:42 Primary Reason for Your Visit: Chest pain Attending Provider: Adilson Melchor Primary Care Provider: Susannah Clemente Consulting Providers: Vasile Reyes; Migel Godoy Instructions Additional Instructions / Restrictions: Continue home medications as normal. Follow-up with your [facility] regional sales associate in the near future. Discharge Orders/Prescriptions Prescriptions: Continued levothyroxine 88 MCG tablet 88 mcg PO DAILY aspirin 81 MG tablet,chewable 81 mg PO DAILY@0800 labetalol 200 MG tablet 100 mg PO BID cholecalciferol (vitamin D3) 25 MCG capsule 25 mcg PO DAILY melatonin 5 MG capsule 5 mg PO QHS clonidine 0.1 mg/24 hr patch weekly 1 patch transdermal QWEEK Patient Comments: Apply 1 patch topically one time a week as directed furosemide 20 mg tablet 20 mg PO .COMPLEX Patient Comments: TAKE 1 TABLET BY MOUTH EVERY WEDNESDAY,WEDNESDAY,WEDNESDAY (0600). Rx Instructions: 20 mg orally Wednesday, Wednesday, Wednesday; ondansetron 4 mg tablet,disintegrating 4 mg PO Q8H PRN PRN (Reason: Nausea) Qty: 10 0RF minoxidil 2.5 mg tablet 2.5 mg PO DAILY indapamide 1.25 mg tablet 1.25 mg PO DAILY nitroglycerin 0.4 mg tablet, sublingual 0.4 mg sublingual PRN Referrals / Follow Up: Susannah Clemente MD [Primary Care Provider] - Disposition Disposition (needs filled in before D/C Order can be placed): Home, Self Care 04/10/25 1500<Electronically signed by Adilson Melchor DO>Adilson Melchor DO CC: Dr. Vasile Reyes MD; Dr. Migel Godoy DO; Dr. Susannah Clemente MD ~ Signed [facility] Work Phone: [phone]) 422-167706-24-2025 Progress note [facility] Medical Records Department [address] [place] [address] Progress Note - Hospitalist 04/10/25 1629 MR#: [id number] Acct: [id number] Name: ZENAIDA EVANS Rep #:[id number] : 1935 89 From: Adilson wu DO PCP: Dr. Susannah Clemente MD Status:AD M IN Location: [place] [address]- Reason for Visit Reason for Visit: Diagnoses Essential (primary) hypertension (04/09/25) Hypertensive emergency (04/09/25) Non-ST elevation (NSTEMI) myocardial infarction (04/09/25) Chronic diastolic (congestive) heart failure (04/09/25) Other chest pain (04/09/25) Other specified abnormal findings of blood chemistry (04/09/25) Subjective Subjective Saw patient at bedside this morning, multiple family members present. Patient was sitting back comfortably in bed, conversing normally, in no acute distress. She denied any chest pain or shortness breath at rest. Plan was for left heart cath for further evaluation for coronary disease. I saw the patient again this afternoon. Left heart cath was negative for coronary disease. However,lower extremity duplex ultrasound preliminary reportshowed small clots in her left gastrocnemius vein and left posterior tibial vein. Given her elevated troponins and chest pain with exertion on admis mauricio, cannot rule out PE. Notably patient is not hypoxic on room air and echo showed no right heartstrain. Because patient had contrast with left heart cath today and has CKD stage IIIb, I recommended that CTA chest for evaluation for PE not be done until tomorrow morning. They were agreeable withthis plan. Objective Data Objective Data Vital Signs: Vital Signs Temp Pulse Resp BP Pulse Ox O2 Del Method O2 Flow Rate 96.0 F L 55 L 13 162/71 H 92 Room Air 95 04/10/25 13:43 04/10/25 13:43 04/10/25 13:43 04/10/25 13:43 04/10/25 13:43 04/10/25 13:43 04/10/25 08:56 Oxygen Flow Rate (L/min) 95 Oxygen Delivery Method Room Air Weight: 57.6 kg Body Mass Index (BMI) 20.5 Intake & Output: Intake and Output for Last 24 Hours 04/08/25 04/09/25 04/10/25 23:59 23:59 23:59 Intake Total 70.83 / 70.83 Balance 70.83 / 70.83 Medical Nutrition Assessment Dietitian: Malnutrition Criteria Met Start: 04/10/25 11:16 Freq: Status: Active Protocol: Document 04/10/25 11:16 SB (Rec: 04/10/25 11:16 SB [id number]) Nutrition Malnutrition Evidence of Yes Malnutrition Exists Malnutrition (severe Acute Illness/Injury ): Evidenced By Suboptimal Energy Intake (Moderate),Weight Loss ( Moderate) Intake Problem Inadequate Oral Intake Etiology related to cardio intervention Signs/Symptoms as evidenced by NPO Status Active Problem Clinical Problem Acute Disease or Injury Related Malnutrition Etiology moderate related to inadequate oral intake Signs/Symptoms as evidenced by PO meeting <75% of estimated nutrition needs x 1 week and 2% unintentional weight loss x 1 week. Status Active Problem Recommendation Dietitian Recommend advanced diet as tolerated to liberal regular Recommendations/ diet due to malnutrition. Changes Continue 120ml EPHP TID with medpass, as diet is advanced. Will monitor weight trends. Lab / Micro Data 04/10/25 04:23 04/10/25 04:23 Labs: Laboratory Results - last 24 hr 04/09/25 19:24: WBC 5.7, RBC 3.95 L, Hgb 12.4, Hct 37.2, MCV 94.2, MCH 31.4, MCHC 33.3, RDW Std Deviation 44.4 H, RDW Coeff of Gabriella 12.9, Plt Count 216, MPV 9.7, Immature Gran % (Auto) 0.200, Neut % (Auto) 49.3, Lymph % (Auto) 32.1, Beaufort% (Auto) 12.7 H, Eos % (Auto) 5.2 H, Baso % (Auto) 0.5, Absolute Neuts (auto) 2.8, Absolute Lymphs (auto) 1.84, Nucleated RBC % 0, Sodium 138, Potassium 4.7, Chloride 101, Carbon Dioxide 25.2, Anion Gap 12, BUN 31 H, Creatinine 1.54 H, Estim Creat Clear Calc 23.40 L, Est GFR (MDRD) Non-Af 32 L, BUN/Creatinine Ratio 20.3 H, Glucose 98, Calcium 9.5, Troponin T High Sens 95 H*, NT pro BNP II 828 04/09/25 21:20: Troponin T Hi Sens 2 Hr 86 H* 04/09/25 21:54: PT 13.6, INR 1.0, APTT 28.4 04/09/25 23:27: Troponin T Hi Sens 4Hr 88 H* 04/10/25 04:23: WBC 5.6, RBC 3.72 L, Hgb 11.6 L, Hct 34.1 L, MCV 91.7, MCH 31.2,MCHC 34.0, RDW Std Deviation 42.3, RDW Coeff of Gabriella 12.6, Plt Count 195, MPV 9.5, APTT 180.0 H*, D-Dimer Quant (PE/DVT)1.00 H*, Sodium 139, Potassium 4.2, Chloride 103, Carbon Dioxide 26.8, Anion Gap 10, BUN 27 H, Creatinine 1.31 H, Estim Creat Clear Calc 26.99 L, Est GFR (MDRD) Non-Af 39 L, BUN/Creatinine Ratio 20.9H, Glucose 106 H, Calcium 9.4, Total Bilirubin 0.54, AST 19, ALT 22, Alkaline Phosphatase 69, TotalProtein 6.3, Albumin 3.8, Globulin 2.5, Albumin/Globulin Ratio 1.6, Triglycerides 54, Cholesterol 169, LDL Cholesterol, Calc 96, VLDL Cholesterol 11, HDL Cholesterol 62, Cholesterol/HDL Ratio 2.74, TS H 2.150 Radiography Diagnostic Testing: Radiology Impression Chest X-Ray 04/09/25 19:38 IMPRESSION: Sequela of COPD, without an acute cardiopulmonary abnormality. Reading Location: [id number] Echocardiogram 04/10/25 00:12 Interpretation Summary The left ventricular ejection fraction is 60 %. Normal LV size. Apical noncompaction noted There is mild to moderate mitral annular calcification. Stage 1 diastolic dysfunction. The global longitudinal strain is normal. The global longitudinal strain = - 18.9% (normal). Ordering Physician: Migel Godoy Performed By: Alysha Conner RDCS Physical Exam Const alert, oriented x3, no apparent distress and average body habitus Constitutional Narrative: Pleasant elderly female, mildly fatigued appearing but otherwise sitting back comfortably in bed, conversing normally, in no acute distress. General Appearance: cooperative and comfortable HEENT normocephalic, head/scalp atraumatic, hearing grossly normal bilaterally, nasal mucous membranes and turbinates normal and moist oral mucous membranes Eyes PERRL, EOMs intact bilaterally and conjunctivae normal Neck full ROM Chest inspection of chest normal Resp normal respiratory effort, normal air movement, no use of accessory muscles and clear to auscultation bilaterally Cardio regular rate, regular rhythm, no murmurs and peripheral pulses 2+ throughout GI normal to inspection, nondistended, normoactive bowel sounds, soft to palpation,non-tender and non-distended Back/Spine normal ROM Extremity full ROM Extremity Narrative: Trace lower extremity nonpitting edema noted bilaterally. Skin no rashes or lesions noted Psych mental status grossly normal Assessment & Plan Assessment/Plan (1) NSTEMI (non-ST elevated myocardial infarction): PLAN: Plan Patient is an 89-year-old female who presented to [facility] ED on 04/09/2025 for chest pain. 1. NSTEMI, acute LLE DVT with concern for PE ? Cardiology following. Presented with worsening chest pain over the past 4 to 5 days. Troponin trend 95 > 86 > 88. EKG with normal sinus rhythm, no ischemicchanges. Given history of heart failure as below, patient was taken for left heart cath this morning. Left heart cath showed mild disease in the circumflex and RCA and moderate disease up to 50% stenosis in the LAD. Recommendation was for medical management. Echo showed EF 60%, stage I diastolic dysfunction, no other concerning findings. D-dimer was mildly elevated on admit and lower extremity duplex ultrasound preliminary report shows acute DVT in the left gastrocnemius and posterior tibial veins. Cannot rule out PE. As patient painting d contrast with cath today, we will plan for CTA chest tomorrow morning. Will continue with IV fluids till after CT tomorrow given CKD as below. Okay for heparin subcu for now and pending CT results,will determine if patient needs anticoagulation on discharge. 2. CKD stage IIIb ? Patient stable at baseline creatinine 1.3-1.5. Did receive IV contrast for cath as above, continue to monitor daily BMP. 3. Chronic HFpEF, hypertension ? Follows with [facility] cardiology. Echo findings on admit as above. Continue home labetalol, indapamide, and weekly clonidine patch. 4. Hypothyroidism ? Continue home Synthroid. DVT prophylaxis: Heparin subcu CODE STATUS: Full code, unverified Expected disposition: Home, 1 to 2 days Total clinical time spent by myself addressing the patient's medical issues, reviewing all the data, and collaborating with patient's care team: 35 minutes. Charges/Coding Visit Charges Inpatient E&M: 76488 Subs Hosp L2 04/10/25 2163 Cosigner Signature (if applicable): CC: ~ Signed [facility]06-24-2025 Consult note Author [facility] Note Date/Time April 10, 2025 1:01 pm [facility] Medical Records Department [address] [place] [address] Consultation - Cardiology 04/10/25 0728 MR#: [id number] Acct: [id number] Name: ZENAIDA EVANS Rep #:[id number] : 1935 89 From: Vasile Reyes MD PCP: Dr. Susannah Clemente MD Status:AD M IN Location: [place] [id number] Assessment & Plan Assessment/Plan (1) NSTEMI (non-ST elevated myocardial infarction): PLAN: Patient presents with chest discomfort and a non-ST elevation myocardial infarction coupled with nausea. My recommendation at this time would be to consider a left heart catheterization. Risk benefits alternatives have and explained to her and she wants to talk to her regional sales associate in [place] before proceeding. In the meantime she will remain on the current medical therapy together with the heparin. (2) Chronic diastolic CHF (congestive heart failure): PLAN: She had a previous echocardiogram which demonstrated preserved left ventricular ejection fraction as per the notes. I am not sure when this was undertaken. Will repeat just to make sure there are no wall motion abnormalities and also to avoid doing an left ventriculogram because of her elevated creatinine. (3) HTN (hypertension): PLAN: She does have evidence of hypertension and the plan to be to continue her current medications with the labetalol as well as the clonidine. She is also onindapamide in the meantime this will be continued. 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 Ejection fraction was noted to be preserved on the echocardiogram. Based on the above findings I would recommend aggressive medical therapy. Patient can follow-up with her regional sales associate in [place]. HPI Consult Data Date of Consult: 04/10/25 HPI Narrative HPI Narrative: ZENAIDA EVANS, is a 89 F who presents to the emergency room with nausea and abdominal pain as well as chest discomfort. She had previously seen her regional sales associate in [place] about a week ago with similar findings and actually atthat time had also complained of some chest discomfort. It appears from his notes that he had considered proceeding with a left heart catheterization or stress testing and they elected to perform the latter. However before she couldbe scheduled patient started having more symptoms with discomfort as noted above. The discomfort was worse with exertion and goes away with rest. In the emergency room she was evaluated by the EKG did not demonstrate any significant abnormalities but cardiac enzymes were abnormal and cardiology was called for further evaluation and management. She is currently pain-free. [facility] Medical History CHF (congestive heart failure) Home Medications ?Medication ?Instructions ?Recorded ?Last Taken ?Type aspirin 81 mg chewable tablet 81 mg PO DAILY@0800 hear t 01/18/18 Unknown History levothyroxine 88 mcg tablet 88 mcg PO DAILY thyroid 04/09/25 History cholecalciferol (vitamin D3) 25 25 mcg PO DAILY Supple ment 10/16/19 04/09/25 History mcg (1,000 unit) capsule labetalol 200 mg tablet 100 mg PO BID Blood pressure 10/16/19 04/09/25 History melatonin 5 mg capsule 5 mg PO QHS Sleep 10/16/19 0 04/09/25 History clonidine 0.1 mg/24 hr weekly 1 patch transdermal QWEE K 11/06/23 04/09/25 History transdermal patch Hypertension furosemide 20 mg tablet 20 mg PO .COMPLEX Diuretic 0 11/06/23 04/09/25 History ondansetron 4 mg disintegrating 4 mg PO Q8H PRN PRN Na usea #10 tabs 11/06/23 Unknown Rx tablet indapamide 1.25 mg tablet 1.25 mg PO DAILY Vlood press ure 04/09/25 04/09/25 History minoxidil 2.5 mg tablet 2.5 mg PO DAILY Hair 5 Unknown History nitroglycerin 0.4 mg sublingual 0.4 mg sublingual PRN Chest pain 04/09/25 Unknown History tablet Allergy/AdvReac Type Severity Reaction Status Date / Time iron Allergy Unknown Verified 04/09/25 18:49 pentazocine (From Audra) Allergy Other Verified 04/09/25 18:49 scopolamine Allergy Other Verified 04/09/25 18:49 Family History no significant family his Social History Smoking Status: Former smoker ROS Constitutional Constitutional: Denies fever(s) or weight loss Eyes Eyes: Reports systems reviewed and no addt'l complaints, except as documented ENT HEENT: Reports systems reviewed and no addt'l complaints, except as documented Cardiovascular Cardiovascular: Reports chest pain with activity, dyspnea at rest and dyspnea onexertion; Denies chest pain at rest, edema, palpitations or paroxysmal nocturnaldyspnea Respiratory/Chest Respiratory/Chest: Denies dyspnea on exertion, productive cough, shortness of breath at rest or shortness of breath with exertion Gastrointestinal Gastrointestinal: Denies change in bowel habits, nausea, vomiting or weight changes Genitourinary Genitourinary: Denies difficulty urinating Musculoskeletal Musculoskeletal: Denies joint stiffness or muscle weakness Integumentary Integumentary: Denies lesions Neurologic Neurologic: Denies dizziness or syncope Psychiatric Psychiatric: Denies anxiety Endocrine Endocrinology: Denies excessive sweating or fatigue Hematologic/Lymphatic Hematologic/Lymphatic: Denies anemia Allergic/Immunologic Allergic/Immunologic: Denies seasonal rhinorrhea Physical Exam Const alert, oriented x3 and no apparent distress General Appearance: cooperative HEENT hearing grossly normal bilaterally Head and Scalp: atraumatic Eyes EOMs intact bilaterally Neck General: normal visual inspection Chest inspection of chest normal and palpation of chest normal Resp normal respiratory effort Auscultation: clear to auscultation bilaterally Cardio regular rate, regular rhythm, S1 normal heart sound and S2 normal heart sound Jugular Venous Distention: JVD GI normal to inspection, nondistended, normoactive bowel sounds Extremity normal capillary refill and no pedal edema Peripheral Pulses: Yes pulses 2+ throughout and femoral pulses present Skin no rashes or lesions noted Neuro oriented x3 and CN's II-XII intact bilaterally Psych Appearance: grossly normal and appropriate Risk Stratification Risk Stratification Applicable: Yes Age >/= 65: Yes >/= 3 CAD Risk Factors (HTN, HLD, DM, family hx of CAD, or current smoker): Yes Aspirin Use in the Past 7 Days: No Severe Angina (>/= episodes in 24 hours): No EKG ST Changes >/= 0.5mm: No Positive Cardiac Marker: Yes SARAN Risk Stratification Score: 3 SARAN % Risk: 13% Risk Objective Data Vital Signs: Vital Signs Temp Pulse Resp BP Pulse Ox O2 Del Method 97.7 F L 72 17 133/72 H 93 Room Air 04/10/25 05:00 04/10/25 05:00 04/10/25 05:00 04/10/25 05:00 04/10/25 05:00 04/10/25 05:00 Oxygen Delivery Method Room Air Weight: 126 lb 15.78 oz Body Mass Index (BMI) 20.5 Intake & Output: Intake and Output for Last 24 Hours 04/08/25 04/09/25 04/10/25 23:59 23:59 23:59 Intake Total 47.83 / 47.83 Balance 47.83 / 47.83 Lab / Micro Data 04/10/25 04:23 04/10/25 04:23 Labs: Laboratory Results - last 24 hr 04/09/25 19:24: WBC 5.7, RBC 3.95 L, Hgb 12.4, Hct 37.2, MCV 94.2, MCH 31.4, MCHC 33.3, RDW Std Deviation 44.4 H, RDW Coeff of Gabriella 12.9, Plt Count 216, MPV 9.7, Immature Gran % (Auto) 0.200, Neut % (Auto) 49.3, Lymph % (Auto) 32.1, [place]% (Auto) 12.7 H, Eos % (Auto) 5.2 H, Baso % (Auto) 0.5, Absolute Neuts (auto) 2.8, Absolute Lymphs (auto) 1.84, Nucleated RBC % 0, Sodium 138, Potassium 4.7, Chloride 101, Carbon Dioxide 25.2, Anion Gap 12, BUN 31 H, Creatinine 1.54 H, Estim Creat Clear Calc 23.40 L, Est GFR (MDRD) Non-Af 32 L, BUN/Creatinine Ratio 20.3 H, Glucose 98, Calcium 9.5, Troponin T High Sens 95 H*, NT pro BNP II 828 04/09/25 21:20: Troponin T Hi Sens 2 Hr 86 H* 04/09/25 21:54: PT 13.6, INR 1.0, APTT 28.4 04/09/25 23:27: Troponin T Hi Sens 4Hr 88 H* 04/10/25 04:23: WBC 5.6, RBC 3.72 L, Hgb 11.6 L, Hct 34.1 L, MCV 91.7, MCH 31.2,MCHC 34.0, RDW Std Deviation 42.3, RDW Coeff of Gabriella 12.6, Plt Count 195, MPV 9.5, APTT 180.0 H*, D-Dimer Quant (PE/DVT) 1.00 H*, Sodium 139, Potassium 4.2, Chloride 103, Carbon Dioxide 26.8, Anion Gap 10, BUN 27 H, Creatinine 1.31 H, Estim Creat Clear Calc 26.99 L, Est GFR (MDRD) Non-Af 39 L, BUN/Creatinine Ratio 20.9 H, Glucose 106 H, Calcium 9.4, Total Bilirubin 0.54, AST 19, ALT 22, Alkaline Phosphatase 69, Total Protein 6.3, Albumin 3.8, Globulin 2.5, Albumin/Globulin Ratio 1.6, Triglycerides 54, Cholesterol 169, LDL Cholesterol, Calc 96, VLDL Cholesterol 11, HDL Cholesterol 62, Cholesterol/HDL Ratio 2.74, TSH 2.150 Cardiology Labs/Tests 04/09/25 19:24: WBC 5.7, RBC 3.95 L, Hgb 12.4, Hct 37.2, MCV 94.2, MCH 31.4, MCHC 33.3, Plt Count 216, MPV 9.7, Immature Gran % (Auto) 0.200, Neut % (Auto) 49.3, Lymph % (Auto) 32.1, Beau[place] % (Auto) 12.7 H, Eos % (Auto) 5.2 H, Baso % (Auto) 0.5, Absolute Neuts (auto) 2.8, Nucleated RBC % 0, Sodium 138, Potassium 4.7, Chloride 101, Carbon Dioxide 25.2, Anion Gap 12, BUN 31 H, Creatinine 1.54 H, Est GFR (MDRD) Non-Af 32 L, BUN/Creatinine Ratio 20.3 H, Glucose 98, Calcium 9.5 04/09/25 21:54: PT 13.6, INR 1.0, APTT 28.4 04/10/25 04:23: WBC 5.6, RBC 3.72 L, Hgb 11.6 L, Hct 34.1 L, MCV 91.7, MCH 31.2,MCHC 34.0, Plt Count 195, MPV 9.5, APTT 180.0 H*, D-Dimer Quant (PE/DVT) 1.00 H*, Sodium 139, Potassium 4.2, Chloride 103, Carbon Dioxide 26.8, Anion Gap 10, BUN 27 H, Creatinine 1.31 H, Est GFR (MDRD) Non-Af 39 L, BUN/Creatinine Ratio 20.9 H, Glucose 106 H, Calcium 9.4, Total Bilirubin 0.54, Triglycerides 54, Cholesterol 169, VLDL Cholesterol 11, HDL Cholesterol 62, Cholesterol/HDL Ratio 2.74 Rhythm: EKG: ECHO: Stress Test: Cardiac Cath: PCI: CT Surgery: Holter monitor: EPS: PPM: CXR: Chest CT Scan: Radiography Diagnostic Testing: Radiology Impression Chest X-Ray 04/09/25 19:38 IMPRESSION: Sequela of COPD, without an acute cardiopulmonary abnormality. Reading Location: [facility] 04/10/25 130 <Electronically signed by Vasile Reyes MD> Cosigner Signature (if applicable): CC: Dr. Susannah Clemente MD~ Signed [facility] Work Phone: [phone]) 814-831306-24-2025 Discharge summary [facility] Medical Records Department [address] [place] [id number] Instructions for Home/Discharge Instructions 04/10/25 1439 MR#: [id number] Acct: [id number] Name: ZENAIDA EVANS Rep #:[id number] : 1935 89 From: Adilson wu DO PCP: Dr. Susannah Clemente MD Status:AD M IN Discharge Instructions DC O2, CPAP, BIPAP needs Home O2 Discharge instructions: No Follow Up Care Test Results: Test results from this visit will be discussed in further detail at your follow- up appointment, if applicable. Discharge Plan Admission Admit Date/Time: 04/09/25 23:42 Primary Reason for Your Visit: Chest pain Attending Provider: Adilson Melchor Primary Care Provider: Susannah Clemente Consulting Providers: Vasile Reyes; Migel Godoy Instructions Additional Instructions / Restrictions: Continue home medications as normal. Follow-up with your [facility] regional sales associate in the near future. Discharge Orders/Prescriptions Prescriptions: Continued levothyroxine 88 MCG tablet 88 mcg PO DAILY aspirin 81 MG tablet,chewable 81 mg PO DAILY@0800 labetalol 200 MG tablet 100 mg PO BID cholecalciferol (vitamin D3) 25 MCG capsule 25 mcg PO DAILY melatonin 5 MG capsule 5 mg PO QHS clonidine 0.1 mg/24 hr patch weekly 1 patch transdermal QWEEK Patient Comments: Apply 1 patch topically one time a week as directed furosemide 20 mg tablet 20 mg PO .COMPLEX Patient Comments: TAKE 1 TABLET BY MOUTH EVERY WEDNESDAY,WEDNESDAY,WEDNESDAY (0600). Rx Instructions: 20 mg orally Wednesday, Wednesday, Wednesday; ondansetron 4 mg tablet,disintegrating 4 mg PO Q8H PRN PRN (Reason: Nausea) Qty: 10 0RF minoxidil 2.5 mg tablet 2.5 mg PO DAILY indapamide 1.25 mg tablet 1.25 mg PO DAILY nitroglycerin 0.4 mg tablet, sublingual 0.4 mg sublingual PRN Referrals / Follow Up: Susannah Clemente MD [Primary Care Provider] - Disposition Disposition (needs filled in before D/C Order can be placed): Home, Self Care 04/10/25 Chandra Melchor DO CC: Dr. Vasile Reyes MD; Dr. Migel Godoy DO; Dr. Susannah Clemente MD ~ Signed [facility]06-24-2025 Consult note [facility] Medical Records Department [address] [place] [address] Consultation - Cardiology 04/10/25 0728 MR#: [id number] Acct: [id number] Name: ZENAIDA EVANS Rep #:[id number] : 1935 89 From: Vasile Reyes MD PCP: Dr. Susannah Clemetne MD Status:AD M IN Location: [place] [id number] Assessment & Plan Assessment/Plan (1) NSTEMI (non-ST elevated myocardial infarction): PLAN: Patient presents with chest discomfort and a non-ST elevation myocardial infarction coupled with nausea. My recommendation at this time would be to consider a left heart catheterization. Risk benefits alternatives have and explained to her and she wants to talk to her regional sales associate in [place] before proceeding. In the meantime she will remain on the current medical therapy together with the heparin. (2) Chronic diastolic CHF (congestive heart failure): PLAN: She had a previous echocardiogram which demonstrated preserved left ventricular ejection fraction as per the notes. I am not sure when this was undertaken. Will repeat just to make sure there are no wall motion abnormalities and also to avoid doing an left ventriculogram because of her elevated creatinine. (3) HTN (hypertension): PLAN: She does have evidence of hypertension and the plan to be to continue her current medicationswith the labetalol as well as the clonidine. She is also onindapamide in the meantime this will be continued. 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 Ejection fraction was noted to be preserved on the echocardiogram. Based on the above findings I would recommend aggressive medical therapy. Patient can follow-up with her regional sales associate in [place]. HPI Consult Data Date of Consult: 04/10/25 HPI Narrative HPI Narrative: ZENAIDA EVANS, is a 89 F who presents to the emergency room with nausea and abdominal pain as well as chest discomfort. She had previously seen her regional sales associate in [place] about a week ago with similar findings and actually atthat time had also complained of some chest discomfort. It appears fromhis notes that he had considered proceeding with a left heart catheterization or stress testing andthey elected to perform the latter. However before she couldbe scheduled patient started having more symptoms with discomfort as noted above. The discomfort was worse with exertion and goes away withrest. In the emergency room she was evaluated by the EKG did not demonstrate any significant abnorma lities but cardiac enzymes were abnormal and cardiology was called for further evaluation and management. She is currently pain-free. [facility] Medical History CHF (congestive heart failure) Home Medications ?Medication ?Instructions ?Recorded ?Last Taken ?Type aspirin 81 mg chewable tablet 81 mg PO DAILY@0800 hear t 01/18/18 Unknown History levothyroxine 88 mcg tablet 88 mcg PO DAILY thyroid 04/09/25 History cholecalciferol (vitamin D3) 25 25 mcg PO DAILY Supple ment 10/16/19 04/09/25 History mcg (1,000 unit) capsule labetalol 200 mg tablet 100 mg PO BID Blood pressure 10/16/19 04/09/25 History melatonin 5 mg capsule 5 mg PO QHS Sleep 10/16/19 0 04/09/25 History clonidine 0.1 mg/24 hr weekly 1 patch transdermal QWEE K 11/06/23 04/09/25 History transdermal patch Hypertension furosemide 20 mg tablet 20 mg PO .COMPLEX Diuretic 0 11/06/23 04/09/25 History ondansetron 4 mg disintegrating 4 mg PO Q8H PRN PRN Na usea #10 tabs 11/06/23 Unknown Rx tablet indapamide 1.25 mg tablet 1.25 mg PO DAILY Vlood press ure 04/09/25 04/09/25 History minoxidil 2.5 mg tablet 2.5 mg PO DAILY Hair 5 Unknown History nitroglycerin 0.4 mg sublingual 0.4 mg sublingual PRN Chest pain 04/09/25 Unknown History tablet Allergy/AdvReac Type Severity Reaction Status Date / Time iron Allergy Unknown Verified 04/09/25 18:49 pentazocine (From Talwin) Allergy Other Verified 04/09/25 18:49 scopolamine Allergy Other Verified 04/09/25 18:49 Family History no significant family his Social History Smoking Status: Former smoker ROS Constitutional Constitutional: Denies fever(s) or weight loss Eyes Eyes: Reports systems reviewed and no addt'l complaints, except as documented ENT HEENT: Reports systems reviewed and no addt'l complaints, except as documented Cardiovascular Cardiovascular: Reports chest pain with activity, dyspnea at rest and dyspnea onexertion; Denies chest pain at rest, edema, palpitations or paroxysmal nocturnaldyspnea Respiratory/Chest Respiratory/Chest: Denies dyspnea on exertion, productive cough, shortness of breath at rest or shortness of breath with exertion Gastrointestinal Gastrointestinal: Denies change in bowel habits, nausea, vomiting or weight changes Genitourinary Genitourinary: Denies difficulty urinating Musculoskeletal Musculoskeletal: Denies joint stiffness or muscle weakness Integumentary Integumentary: Denies lesions Neurologic Neurologic: Denies dizziness or syncope Psychiatric Psychiatric: Denies anxiety Endocrine Endocrinology: Denies excessive sweating or fatigue Hematologic/Lymphatic Hematologic/Lymphatic: Denies anemia Allergic/Immunologic Allergic/Immunologic: Denies seasonal rhinorrhea Physical Exam Const alert, oriented x3 and no apparent distress General Appearance: cooperative HEENT hearing grossly normal bilaterally Head and Scalp: atraumatic Eyes EOMs intact bilaterally Neck General: normal visual inspection Chest inspection of chest normal and palpation of chest normal Resp normal respiratory effort Auscultation: clear to auscultation bilaterally Cardio regular rate, regular rhythm, S1 normal heart sound and S2 normal heart sound Jugular Venous Distention: JVD GI normal to inspection, nondistended, normoactive bowel sounds Extremity normal capillary refill and no pedal edema Peripheral Pulses: Yes pulses 2+ throughout and femoral pulses present Skin no rashes or lesions noted Neuro oriented x3 and CN's II-XII intact bilaterally Psych Appearance: grossly normal and appropriate Risk Stratification Risk Stratification Applicable: Yes Age >/= 65: Yes >/= 3 CAD Risk Factors (HTN, HLD, DM, family hx of CAD, or current smoker): Yes Aspirin Use in the Past 7 Days: No Severe Angina (>/= episodes in 24 hours): No EKG ST Changes >/= 0.5mm: No Positive Cardiac Marker: Yes SARAN Risk Stratification Score: 3 SARAN % Risk: 13% Risk Objective Data Vital Signs: Vital Signs Temp Pulse Resp BP Pulse Ox O2 Del Method 97.7 F L 72 17 133/72 H 93 Room Air 04/10/25 05:00 04/10/25 05:00 04/10/25 05:00 04/10/25 05:00 04/10/25 05:00 04/10/25 05:00 Oxygen Delivery Method Room Air Weight: 126 lb 15.78 oz Body Mass Index (BMI) 20.5 Intake & Output: Intake and Output for Last 24 Hours 04/08/25 04/09/25 04/10/25 23:59 23:59 23:59 Intake Total 47.83 / 47.83 Balance 47.83 / 47.83 Lab / Micro Data 04/10/25 04:23 04/10/25 04:23 Labs: Laboratory Results - last 24 hr 04/09/25 19:24: WBC 5.7, RBC 3.95 L, Hgb 12.4, Hct 37.2, MCV 94.2, MCH 31.4, MCHC 33.3, RDW Std Deviation 44.4 H, RDW Coeff of Gabriella 12.9, Plt Count 216, MPV 9.7, Immature Gran % (Auto) 0.200, Neut % (Auto) 49.3, Lymph % (Auto) 32.1, Beaufort% (Auto) 12.7 H, Eos % (Auto) 5.2 H, Baso % (Auto) 0.5, Absolute Neuts (auto) 2.8, Absolute Lymphs (auto) 1.84, Nucleated RBC % 0, Sodium 138, Potassium 4.7, Chloride 101, Carbon Dioxide 25.2, Anion Gap 12, BUN 31 H, Creatinine 1.54 H, Estim Creat Clear Calc 23.40 L, Est GFR (MDRD) Non-Af 32 L, BUN/Creatinine Ratio 20.3 H, Glucose 98, Calcium 9.5, Troponin T High Sens 95 H*, NT pro BNP II 828 04/09/25 21:20: Troponin T Hi Sens 2 Hr 86 H* 04/09/25 21:54: PT 13.6, INR 1.0, APTT 28.4 04/09/25 23:27: Troponin T Hi Sens 4Hr 88 H* 04/10/25 04:23: WBC 5.6, RBC 3.72 L, Hgb 11.6 L, Hct 34.1 L, MCV 91.7, MCH 31.2,MCHC 34.0, RDW Std Deviation 42.3, RDW Coeff of Gabriella 12.6, Plt Count 195, MPV 9.5, APTT 180.0 H*, D-Dimer Quant (PE/DVT)1.00 H*, Sodium 139, Potassium 4.2, Chloride 103, Carbon Dioxide 26.8, Anion Gap 10, BUN 27 H, Creatinine 1.31 H, Estim Creat Clear Calc 26.99 L, Est GFR (MDRD) Non-Af 39 L, BUN/Creatinine Ratio 20.9H, Glucose 106 H, Calcium 9.4, Total Bilirubin 0.54, AST 19, ALT 22, Alkaline Phosphatase 69, TotalProtein 6.3, Albumin 3.8, Globulin 2.5, Albumin/Globulin Ratio 1.6, Triglycerides 54, Cholesterol 169, LDL Cholesterol, Calc 96, VLDL Cholesterol 11, HDL Cholesterol 62, Cholesterol/HDL Ratio 2.74, TS H 2.150 Cardiology Labs/Tests 04/09/25 19:24: WBC 5.7, RBC 3.95 L, Hgb 12.4, Hct 37.2, MCV 94.2, MCH 31.4, MCHC 33.3, Plt Count 216, MPV 9.7, Immature Gran % (Auto) 0.200, Neut % (Auto) 49.3, Lymph % (Auto) 32.1, [place] % (Auto) 12.7 H, Eos % (Auto) 5.2 H, Baso % (Auto) 0.5, Absolute Neuts (auto) 2.8, Nucleated RBC % 0, Sodium 138, Potassium 4.7, Chloride 101, Carbon Dioxide 25.2, Anion Gap 12, BUN 31 H, Creatinine 1.54 H, Est GFR (MDRD) Non-Af 32 L, BUN/Creatinine Ratio 20.3 H, Glucose 98, Calcium 9.5 04/09/25 21:54: PT 13.6, INR 1.0, APTT 28.4 04/10/25 04:23: WBC 5.6, RBC 3.72 L, Hgb 11.6 L, Hct 34.1 L, MCV 91.7, MCH 31.2,MCHC 34.0, Plt Count 195, MPV 9.5, APTT 180.0 H*, D-Dimer Quant (PE/DVT) 1.00 H*, Sodium 139, Potassium 4.2, Chloride 103, Carbon Dioxide 26.8, Anion Gap 10, BUN 27 H, Creatinine 1.31 H, Est GFR (MDRD) Non-Af 39 L, BUN/Creatinine Ratio 20.9 H, Glucose 106 H, Calcium 9.4, Total Bilirubin 0.54, Triglycerides 54, Cholesterol 169, VLDL Cholesterol 11, HDL Cholesterol 62, Cholesterol/HDL Ratio 2.74 Rhythm: EKG: ECHO: Stress Test: Cardiac Cath: PCI: CT Surgery: Holter monitor: EPS: PPM: CXR: Chest CT Scan: Radiography Diagnostic Testing: Radiology Impression Chest X-Ray 04/09/25 19:38 IMPRESSION: Sequela of COPD, without an acute cardiopulmonary abnormality. Reading Location: [id number] 04/10/25 1301 Cosigner Signature (if applicable): CC: Dr. Susannah Clemente MD~ Signed [facility]06-24-2025 History and physical note Author Migel Lazaro [facility] Note Date/Time April 10, 2025 7:03 am [facility] Medical Records Department [address] [place] [address] H&P Exam - Hospitalist 04/09/25 4835 MR#: [id number] Acct: [id number] Name: ZENAIDA EVANS Rep #:[id number] : 1935 89 From: Migel Flores DO PCP: Dr. Susannah Clemente MD Status:AD M IN Location: [place] [id number]- [id number] HPI - General General Date of Admission: 04/09/25 Date of Service: 04/09/25 Chief Complaint: Chest Pain. HPI Narrative ZENAIDA EVANS, is a 89 F with past medical history of essential hypertension; onvalsartan, labetalol, amlodipine, indapamide, hydrochlorothiazide and furosemide, hypothyroidism; on levothyroxine, former tobacco abuse, history of chronic diastolic CHF; LVEF 65% and stage I diastolic dysfunction (2019) followed by regional sales associate at [facility], neuropathy; on gabapentin, historyof microscopic colitis, history of Right breast cancer; s/p lumpectomy with radiation and OA who presents to [facility] ER complaining of chest pain. Ms. Evans reports her symptoms began more than a month ago but then ~5 days ago they became very intense with chest pressure that was [id number], substernal and nonradiating with pain that would come on suddenly and then let up spontaneously with nothing seeming to make the pain better or worse. She also admits to associated shortness of breath and nausea. She denies associated fever, chills, vomiting, diarrhea, constipation lower extremity edema, diaphoresis, cough, headache or rash. In the ER she was noted to have an elevated initial troponin T of 95 ng/L with a CXR that revealed sequela of COPD without an acute cardiopulmonary abnormality with the ER physician then contacting regional sales associate on-call who recommended IV heparin and patient be admitted to the hospitalist service to the PCU for ongoing care for stay that is expected to extend beyond 2 midnights. [facility] Medical History CHF (congestive heart failure) Home Medications ?Medication ?Instructions ?Recorded ?Last Taken ?Type aspirin 81 mg chewable tablet 81 mg PO DAILY@0800 hear t 01/18/18 Unknown History levothyroxine 88 mcg tablet 88 mcg PO DAILY thyroid 04/09/25 History cholecalciferol (vitamin D3) 25 25 mcg PO DAILY Supple ment 10/16/19 04/09/25 History mcg (1,000 unit) capsule labetalol 200 mg tablet 100 mg PO BID Blood pressure 10/16/19 04/09/25 History melatonin 5 mg capsule 5 mg PO QHS Sleep 10/16/19 0 04/09/25 History clonidine 0.1 mg/24 hr weekly 1 patch transdermal QWEE K 11/06/23 04/09/25 History transdermal patch Hypertension furosemide 20 mg tablet 20 mg PO .COMPLEX Diuretic 0 11/06/23 04/09/25 History ondansetron 4 mg disintegrating 4 mg PO Q8H PRN PRN Na usea #10 tabs 11/06/23 Unknown Rx tablet indapamide 1.25 mg tablet 1.25 mg PO DAILY Vlood press ure 04/09/25 04/09/25 History minoxidil 2.5 mg tablet 2.5 mg PO DAILY Hair 5 Unknown History nitroglycerin 0.4 mg sublingual 0.4 mg sublingual PRN Chest pain 04/09/25 Unknown History tablet Allergy/AdvReac Type Severity Reaction Status Date / Time iron Allergy Unknown Verified 04/09/25 18:49 pentazocine (From Talwin) Allergy Other Verified 04/09/25 18:49 scopolamine Allergy Other Verified 04/09/25 18:49 Family History no significant family his Social History Smoking Status: Former smoker ROS ROS Narrative Review of Systems: Constitutional: Patient denies fever or chills. Eyes: Patient denies changes in vision or discharge from eyes. ENT: Patient denies runny nose, sore throat or ear pain. Resp: Patient denies shortness of breath or cough. CV: Patient admits to chest pain that is pressure-like, substernal and nonradiating with nothing seeming to make the pain better or worse as per HPI. GI: Patient admits to nausea but she denies vomiting, diarrhea or constipation. : Patient denies dysuria or hematuria. MSK: Patient denies arthralgias or myalgias. Skin: Patient denies rash, abscess, wounds or jaundice. Psych: Patient denies symptoms uncontrolled depression or anxiety. Neuro: Patient denies headache, paresthesias or focal neurologic deficits. Allergy: Patient denies lip swelling, tongue swelling or urticaria. Hematology: Patient denies easy bleeding or easy bruisability. Endocrinology: Patient denies polyuria, polydipsia, polyphagia or heat/cold intolerance. 14 point ROS otherwise negative several positives noted above in HPI. Vital Signs Vital Signs Vital Signs: 04/09/25 18:49 04/09/25 19:49 04/09/25 20:00 Temperature 96.7 F L Temperature Source Temporal Pulse Rate 73 64 65 Respiratory Rate 14 15 Blood Pressure 165/81 H 167/72 H 167/72 H Blood Pressure Mean 109 103 103 Pulse Ox 97 96 96 Oxygen Delivery Method Room Air Room Air Room Air 04/09/25 21:00 04/09/25 22:00 Temperature Temperature Source Pulse Rate 62 64 Respiratory Rate 12 12 Blood Pressure 172/68 H 190/83 H Blood Pressure Mean 102 118 Pulse Ox 95 96 Oxygen Delivery Method Room Air Room Air Weight Weight: 129 lb 6.581 oz Body Mass Index (BMI) 20.9 Physical Exam Const alert, oriented x3, no apparent distress, average body habitus and healthy appearing General Appearance: cooperative HEENT normocephalic, head/scalp atraumatic, hearing grossly normal bilaterally and moist oral mucous membranes Eyes PERRL and EOMs intact bilaterally Neck no lymphadenopathy and supple Resp normal respiratory effort, no retractions, no use of accessory muscles and clearto auscultation bilaterally Cardio regular rate and regular rhythm GI normal to inspection, nondistended, normoactive bowel sounds, soft to palpation,non-tender and non-distended Extremity normal to inspection, full ROM and no clubbing, cyanosis or edema Skin Skin Narrative: Patient has evidence of rash, abscess, wounds or jaundice. Neuro oriented x3, CN's II-XII intact bilaterally, moves all extremities and no focal motor deficits Sensorium / Orientation: awake, alert, oriented to person, oriented to place andoriented to time Speech: speech normal Psych affect normal Results Medical Records Data Attestation: I reviewed the patient's medical records Lab / Micro Data Attestation: I reviewed the patient's lab results. 04/09/25 19:24 04/09/25 19:24 Labs: Laboratory Results - last 24 hr 04/09/25 19:24: WBC 5.7, RBC 3.95 L, Hgb 12.4, Hct 37.2, MCV 94.2, MCH 31.4, MCHC 33.3, RDW Std Deviation 44.4 H, RDW Coeff of Gabriella 12.9, Plt Count 216, MPV 9.7, Immature Gran % (Auto) 0.200, Neut % (Auto) 49.3, Lymph % (Auto) 32.1, [place]% (Auto) 12.7 H, Eos % (Auto) 5.2 H, Baso % (Auto) 0.5, Absolute Neuts (auto) 2.8, Absolute Lymphs (auto) 1.84, Nucleated RBC % 0, Sodium 138, Potassium 4.7, Chloride 101, Carbon Dioxide 25.2, Anion Gap 12, BUN 31 H, Creatinine 1.54 H, Estim Creat Clear Calc 23.40 L, Est GFR (MDRD) Non-Af 32 L, BUN/Creatinine Ratio 20.3 H, Glucose 98, Calcium 9.5, Troponin T High Sens 95 H*, NT pro BNP II 828 04/09/25 21:20: Troponin T Hi Sens 2 Hr 86 H* 04/09/25 21:54: PT 13.6, INR 1.0, APTT 28.4 Imaging Radiology Impression Chest X-Ray 04/09/25 19:38 IMPRESSION: Sequela of COPD, without an acute cardiopulmonary abnormality. Reading Location: [id number] Assessment & Plan Assessment/Plan (1) Chest pressure: (2) Elevated troponin: (3) Hypertensive emergency: (4) Chronic diastolic CHF (congestive heart failure): PLAN: Plan 1. Chest Pain with elevated initial troponin T of 95 ng/L - Admit to PCU. Continue IV heparin begun in the ER and resume baby aspirin daily. Give SL NTG as needed for recurrent angina. Check echocardiogram to evaluate LVEF. Give acetaminophen prn for qsxd-wa-cljnouab (level 1-5/10) pain or fever. Give morphine IV prn for severe (level 6-10/10) pain. Finally, we will consult [facility] see this patient on rounds in the a.m. for further recommendations regarding possible LHC with help appreciated in advance. 2. Elevated blood pressure of 190/83 mmHg noted shortly after admission consistent with Hypertensive Emergency likely causing #1 - Maintain home regimenplus give prn IV hydralazine for systolic blood pressure > 160 mmHg. 3. Chronic diastolic CHF; LVEF 65% and stage I diastolic dysfunction (2019) followed by regional sales associate at [facility] - Stable with no evidence of acute volume overload at this time. New echocardiogram ordered for #1. 4. Hypothyroidism; on levothyroxine - Resume levothyroxine and check TSH. 5. Former tobacco abuse - Noted. 6. Neuropathy; on gabapentin - Continue gabapentin as before. 7. History of Right breast cancer; s/p lumpectomy with radiation - Noted. 8. History of microscopic colitis - Noted. 9. OA - Give acetaminophen prn as outlined in #1. 10. DVT prophylaxis - Patient already on IV heparin for #1. Total time: Approximately (but not less than) 55 minutes. Charges/Coding Visit Charges OBSV E&M: 24117 Observ/hosp same date L2 04/10/25 0703 <Electronically signed by Migel Godoy DO> Cosigner Signature (if applicable): CC: Dr. Migel Godoy DO; Dr. Susannah Clemente MD~ Signed [facility] Work Phone: 1(376) 672-498006-24-2025 Telephone encounter Note* Telephone Encounter - Joann Honeycutt - 04/10/2025 8:16 AM EDT April 10, 2025 Name: Zenaida Evans Patient Contact Number: [phone] (home) [phone] (cell) Date of last office visit: 04/03/2025 Reason For Call: Chest pain/angina - Patient was taken to the ED overnight to [facility]. They believe she has had a heart attack based on the elevated enzymes. They want to do a cardiac cath today, but the patient wants to see if Dr. Bautista thinks she should be moved to [facility]. Zenaida Evans can be reached at [phone]. Physician: Paul Bautista MD Patient was informed that non-urgent calls may be returned within the next three business days. Yes Joann Honeycutt [facility] STAFF PHYSICIAN NOTE OF PERSONAL INVOLVEMENT IN CARE Discussed with patient. Went into ER with chest pain and nausea. HS trop to 95 and then decreased to 86. Discussed reasonable to ask for transfer to [facility] if bed can be available as soon as possible. If it will take > 36 hours, would perform LHC there to understand the anatomy and if there is a culprit lesion. Currently pain and nausea free admitted to local hospital. STAFF PHYSICIAN: Paul Bautista MD [facility]06-24-2025 Miscellaneous Notes* Telephone Encounter - Joann Honeycutt - 04/10/2025 8:16 AM EDT April 10, 2025 Name: Zenaida Evans Patient Contact Number: [phone] (home) [phone] (cell) Date of last office visit: 04/03/2025 Reason For Call: Chest pain/angina - Patient was taken to the ED overnight to [facility]. They believe she has had a heart attack based on the elevated enzymes. They want to do a cardiac cath today, but the patient wants to see if Dr. Bautista thinks she should be moved to [facility]. Zenaida Evans can be reached at [phone]. Physician: Paul Bautista MD Patient was informed that non-urgent calls may be returned within the next three business days. Yes Joann Honeycutt [facility] STAFF PHYSICIAN NOTE OF PERSONAL INVOLVEMENT IN CARE Discussed with patient. Went into ER with chest pain and nausea. HS trop to 95 and then decreased to 86. Discussed reasonable to ask for transfer to [facility] if bed can be available as soon as possible. If it will take > 36 hours, would perform LHC there to understand the anatomy and if there is a culprit lesion. Currently pain and nausea free admitted to local hospital. STAFF PHYSICIAN: Paul Bautista MD [facility] History and physical note [facility] Medical Records Department [address] [place] [address] H&P Exam - Hospitalist 04/09/25 7764 MR#: [id number] Acct: [id number] Name: ZENAIDA EVANS Rep #:[id number] : 1935 89 From: Migel Flores DO PCP: Dr. Susannah Clemente MD Status:AD M IN Location: [facility] [id number] HPI - General General Date of Admission: 04/09/25 Date of Service: 04/09/25 Chief Complaint: Chest Pain. HPI Narrative ZENAIDA EVANS, is a 89 F with past medical history of essential hypertension; onvalsartan, labetalol, amlodipine, indapamide, hydrochlorothiazide and furosemide, hypothyroidism; on levothyroxine, former tobacco abuse, history of chronic diastolic CHF; LVEF 65% and stage I diastolic dysfunction (2019) followed by regional sales associate at [facility], neuropathy; on gabapentin, historyof microscopic colitis, history of Right breast cancer; s/p lumpectomy with radiation and OA who presents to [facility] ER complaining of chest pain. Ms. Evans reports her symptoms began more than a month ago but then ~5 days ago they became very intense with chest pressure that was pqjcyimu-xm-bgmfaw, substernal and nonradiating with pain that would come on suddenly and then let up spontaneously with nothing seeming to make the pain better or worse. She also admits to associated shortness of breath and nausea. She denies associated fever, chills, vomiting, diarrhea, constipation lower extremityedema, diaphoresis, cough, headache or rash. In the ER she was noted to have an elevated initial troponin T of 95 ng/L with a CXR that revealed sequela of COPD without an acute cardiopulmonary abnormality with the ER physician then contacting regional sales associate on-call who recommended IV heparin and patient be admitted to the hospitalist service to the PCU for ongoing care for stay that is expected to extend beyond 2 midnights. [facility] Medical History CHF (congestive heart failure) Home Medications ?Medication ?Instructions ?Recorded ?Last Taken ?Type aspirin 81 mg chewable tablet 81 mg PO DAILY@0800 hear t 01/18/18 Unknown History levothyroxine 88 mcg tablet 88 mcg PO DAILY thyroid 04/09/25 History cholecalciferol (vitamin D3) 25 25 mcg PO DAILY Supple ment 10/16/19 04/09/25 History mcg (1,000 unit) capsule labetalol 200 mg tablet 100 mg PO BID Blood pressure 10/16/19 04/09/25 History melatonin 5 mg capsule 5 mg PO QHS Sleep 10/16/19 0 04/09/25 History clonidine 0.1 mg/24 hr weekly 1 patch transdermal QWEE K 11/06/23 04/09/25 History transdermal patch Hypertension furosemide 20 mg tablet 20 mg PO .COMPLEX Diuretic 0 11/06/23 04/09/25 History ondansetron 4 mg disintegrating 4 mg PO Q8H PRN PRN Na usea #10 tabs 11/06/23 Unknown Rx tablet indapamide 1.25 mg tablet 1.25 mg PO DAILY Vlood press ure 04/09/25 04/09/25 History minoxidil 2.5 mg tablet 2.5 mg PO DAILY Hair 5 Unknown History nitroglycerin 0.4 mg sublingual 0.4 mg sublingual PRN Chest pain 04/09/25 Unknown History tablet Allergy/AdvReac Type Severity Reaction Status Date / Time iron Allergy Unknown Verified 04/09/25 18:49 pentazocine (From Audra) Allergy Other Verified 04/09/25 18:49 scopolamine Allergy Other Verified 04/09/25 18:49 Family History no significant family his Social History Smoking Status: Former smoker ROS ROS Narrative Review of Systems: Constitutional: Patient denies fever or chills. Eyes: Patient denies changes in vision or discharge from eyes. ENT: Patient denies runny nose, sore throat or ear pain. Resp: Patient denies shortness of breath or cough. CV: Patient admits to chest pain that is pressure-like, substernal and nonradiating with nothing seeming to make the pain better or worse as per HPI. GI: Patient admits to nausea but she denies vomiting, diarrhea or constipation. : Patient denies dysuria or hematuria. MSK: Patient denies arthralgias or myalgias. Skin: Patient denies rash, abscess, wounds or jaundice. Psych: Patient denies symptoms uncontrolled depression or anxiety. Neuro: Patient denies headache, paresthesias or focal neurologic deficits. Allergy: Patient denies lip swelling, tongue swelling or urticaria. Hematology: Patient denies easy bleeding or easy bruisability. Endocrinology: Patient denies polyuria, polydipsia, polyphagia or heat/cold intolerance. 14 point ROS otherwise negative several positives noted above in HPI. Vital Signs Vital Signs Vital Signs: 04/09/25 18:49 04/09/25 19:49 04/09/25 20:00 Temperature 96.7 F L Temperature Source Temporal Pulse Rate 73 64 65 Respiratory Rate 14 15 Blood Pressure 165/81 H 167/72 H 167/72 H Blood Pressure Mean 109 103 103 Pulse Ox 97 96 96 Oxygen Delivery Method Room Air Room Air Room Air 04/09/25 21:00 04/09/25 22:00 Temperature Temperature Source Pulse Rate 62 64 Respiratory Rate 12 12 Blood Pressure 172/68 H 190/83 H Blood Pressure Mean 102 118 Pulse Ox 95 96 Oxygen Delivery Method Room Air Room Air Weight Weight: 129 lb 6.581 oz Body Mass Index (BMI) 20.9 Physical Exam Const alert, oriented x3, no apparent distress, average body habitus and healthy appearing General Appearance: cooperative HEENT normocephalic, head/scalp atraumatic, hearing grossly normal bilaterally and moist oral mucous membranes Eyes PERRL and EOMs intact bilaterally Neck no lymphadenopathy and supple Resp normal respiratory effort, no retractions, no use of accessory muscles and clearto auscultation bilaterally Cardio regular rate and regular rhythm GI normal to inspection, nondistended, normoactive bowel sounds, soft to palpation,non-tender and non-distended Extremity normal to inspection, full ROM and no clubbing, cyanosis or edema Skin Skin Narrative: Patient has evidence of rash, abscess, wounds or jaundice. Neuro oriented x3, CN's II-XII intact bilaterally, moves all extremities and no focal motor deficits Sensorium / Orientation: awake, alert, oriented to person, oriented to place andoriented to time Speech: speech normal Psych affect normal Results Medical Records Data Attestation: I reviewed the patient's medical records Lab / Micro Data Attestation: I reviewed the patient's lab results. 04/09/25 19:24 04/09/25 19:24 Labs: Laboratory Results - last 24 hr 04/09/25 19:24: WBC 5.7, RBC 3.95 L, Hgb 12.4, Hct 37.2, MCV 94.2, MCH 31.4, MCHC 33.3, RDW Std Deviation 44.4 H, RDW Coeff of Gabriella 12.9, Plt Count 216, MPV 9.7, Immature Gran % (Auto) 0.200, Neut % (Auto) 49.3, Lymph % (Auto) 32.1, Beaufort% (Auto) 12.7 H, Eos % (Auto) 5.2 H, Baso % (Auto) 0.5, Absolute Neuts (auto) 2.8, Absolute Lymphs (auto) 1.84, Nucleated RBC % 0, Sodium 138, Potassium 4.7, Chloride 101, Carbon Dioxide 25.2, Anion Gap 12, BUN 31 H, Creatinine 1.54 H, Estim Creat Clear Calc 23.40 L, Est GFR (MDRD) Non-Af 32 L, BUN/Creatinine Ratio 20.3 H, Glucose 98, Calcium 9.5, Troponin T High Sens 95 H*, NT pro BNP II 828 04/09/25 21:20: Troponin T Hi Sens 2 Hr 86 H* 04/09/25 21:54: PT 13.6, INR 1.0, APTT 28.4 Imaging Radiology Impression Chest X-Ray 04/09/25 19:38 IMPRESSION: Sequela of COPD, without an acute cardiopulmonary abnormality. Reading Location: [facility] Assessment & Plan Assessment/Plan (1) Chest pressure: (2) Elevated troponin: (3) Hypertensive emergency: (4) Chronic diastolic CHF (congestive heart failure): PLAN: Plan 1. Chest Pain with elevated initial troponin T of 95 ng/L - Admit to PCU. Continue IV heparin begunin the ER and resume baby aspirin daily. Give SL NTG as needed for recurrent angina. Check echocardiogram to evaluate LVEF. Give acetaminophen prn for trzw-di-zptrmcyi (level 1-5/10) pain or fever. Give morphine IV prn for severe (level 6-10/10) pain. Finally, we will consult [facility] see this patient on rounds in the a.m. for further recommendations regarding possible LHC with help appreciated in advance. 2. Elevated blood pressure of 190/83 mmHg noted shortly after admission consistent with Hypertensive Emergency likely causing #1 - Maintain home regimenplus give prn IV hydralazine for systolic bloodpressure > 160 mmHg. 3. Chronic diastolic CHF; LVEF 65% and stage I diastolic dysfunction (2019) followed by regional sales associate at [facility] - Stable with no evidence of acute volume overload at this time. New echocardiogram ordered for #1. 4. Hypothyroidism; on levothyroxine - Resume levothyroxine and check TSH. 5. Former tobacco abuse - Noted. 6. Neuropathy; on gabapentin - Continue gabapentin as before. 7. History of Right breast cancer; s/p lumpectomy with radiation - Noted. 8. History of microscopic colitis - Noted. 9. OA - Give acetaminophen prn as outlined in #1. 10. DVT prophylaxis - Patient already on IV heparin for #1. Total time: Approximately (but not less than) 55 minutes. Charges/Coding Visit Charges OBSV E&M: 06913 Observ/hosp same date L2 04/10/25 0703 Cosigner Signature (if applicable): CC: Dr. Migel Godoy DO; Dr. Susannah Clemente MD~ Signed [facility]06-24-2025 Evaluation note* Diagnosis Onset Date Resolution Status Admit Date Chest pressure acute April 09, 2025 11:42pm Elevated troponin acute April 092024 11:42pm Hypertensive emergency acute Ju ne 2024 11:42pm NSTEMI (non-ST elevated myocardial infarction) acute March 11:42pm Chronic diastolic CHF (congestive heart failure) chronic April 09, 2025 11:42pm Chronic kidney disease chronic Ju ne 2024 11:42pm HTN (hypertension) chronic March 192024 11:42pm [facility] Work Phone: 1(344) 909-617406-24-2025 Discharge summary Author Serge Mcmullen [facility] Note Date/Time April 09, 2025 11:0 7pm [facility] Medical Records Department [address] [place] [address] Emergency Department Summary 04/09/25 MR#: [id number] Acct: [id number] Name: ZENAIDA EVANS Rep #:[id number] : [...] no shortness of breath. She sees a regional sales associate at the [facility]. While she does not take furosemide daily,she is on other diuretics including Farxiga. No increased swelling of her legs. No exacerbating or alleviating factors. There is no predictability to chest pressure nausea. [facility] Medical History CHF (congestive heart failure) Home [...] % (Auto) 49.3 Lymph % (Auto) 32.1 Beaufort % (Auto) 12.7 H Eos % (Auto) [...] without an acute cardiopulmonary abnormality. Reading Location: [id number] Management Discussion w/another healthcare provider: Hospitalist and Animal Care Taker ( cardiology) Discharge Plan Dx/Rx/DC Orders Clinical Impression: Chest pressure, HTN (hypertension), Elevated troponin, Chronic kidney disease Disposition Disposition: Acute Care [facility] What to do if you have Problems For any increased pain, shortness of breath, bleeding, nausea or vomiting, chestpain, or any unexpected problems, contact your Primary Care Provider. Call [facility] ([phone]) or report to the closest Emergency Room. Call 911 if necessary. 04/09/25 3894 <Electronically signed by Serge Mcmullen MD> Cosigner Signature (if applicable): CC: Dr. Susannah Celmente MD ~ Signed [facility] Work Phone: [phone]) 245-261506-23-2025 Discharge summary [facility] Medical Records Department [address] [place] [address] Emergency Department Summary 04/09/25 MR#: [id number] Acct: [id number] Name: ZENAIDA EVANS Rep #:[id number] : 1935 89 From: Serge Mcmullen MD PCP: Dr. Susannah Clemente MD Status:RE G ER Location: ED HPI History of Present Illness Chief Complaint: Chest Pain Narrative Narrative: 89-year-old female with past medical history of congestive heart failure presents with her daughterbecause of increasing chest pressure, nausea, and mild shortness of breath that she has had especially over the last 5 days. She relates history that her symptoms actually began approximately 1 monthago. Initially 5 days ago they were very intense for the first 24 hours. She has hadnausea in the past and states that she took medication which improved it. She gets the sensations of chest pressuresuddenly come on, then tend to let up. She denies any recent fevers or chills, no shortness of breath. She sees a regional sales associate at the [facility]. While she does not take furosemide daily,she jesus manuel other diuretics including Farxiga. No increased swelling of her legs. No exacerbating or alleviating factors. There is no predictability to chest pressure nausea. [facility] Medical History CHF (congestive heart failure) [...] Allergy Unknown Verified 04/09/25 18:49 pentazocine (From Talwin) Allergy Other Verified 04/09/25 18:49 scopolamine Allergy Other Verified 04/09/25 18:49 Family History no significant family his Social History Smoking Status: Former smoker ROS ROS ED ROS Narrative Review of systems positive for chest pressure, nausea, mild shortness of breath,no leg swelling, nofevers or chills, no cough. EXAM Physical Exam [...] limited to CHF exacerbation versus ACS versus pneumoniaversus pneumothorax. History and physical does not supportpneumonia [...] remarkable for BUN of 31 and creatinine 1.54with glucose 98. Normal sodium andpotassium. Initial high-sensitivity [...] % (Auto) 49.3 Lymph % (Auto) 32.1 Beaufort % (Auto) 12.7 H Eos % (Auto) [...] without an acute cardiopulmonary abnormality. Reading Location: [id number] Management Discussion w/another healthcare provider: Hospitalist and Animal Care Taker ( cardiology) Discharge Plan Dx/Rx/DC Orders Clinical Impression: Chest pressure, HTN (hypertension), Elevated troponin, Chronic kidney disease Disposition Disposition: [facility] Care [facility] What to do if you have Problems For any increased pain, shortness of breath, bleeding, nausea or vomiting, chestpain, or any unexpected problems, contact your Primary Care Provider. Call [facility] ([phone]) or report tothe closest Emergency Room. Call 911 if necessary. 04/09/25 5564 Cosigner Signature (if applicable): CC: Dr. Susannah Clemente MD ~ Signed [facility]06-23-2025 Radiology Diagnostic study note [facility] Imaging Services [address] [place] [address] Chest 1 View (Portable) MR#: [id number] Acct: [id number] Name: ZENAIDA EVANS Rep #: [id number] : 1935 F 89 From: Kath Scott MD PCP: Dr. Susannah Clemente MD Status: RE G ER Study:Chest 1 View (Portable) Date of Exam: 04/09/25 Exam# [id number] Ordering Dr: Piter ,Ed P. PROCEDURE: CHEST 1 VIEW (PORTABLE) 04/09/2025 REASON [...] without an acute cardiopulmonary abnormality. Reading Location: [id number] CC: Dr. Susannah Clemente MD; ED PHYSICIAN PROVIDER ~ [employer] Restorer: Signed [facility]06-23-2025 Discharge summary Author Serge Mcmullen [facility] Note Date/Time April 09, 2025 11:0 7pm [facility] Medical Records Department [address] [place] [address] Emergency Department Summary 04/09/25 MR#: [id number] Acct: [id number] Name: ZENAIDA EVANS Rep #:[id number] : [...] no shortness of breath. She sees a regional sales associate at the [facility]. While she does not take furosemide daily,she is on other diuretics including Farxiga. No increased swelling of her legs. No exacerbating or alleviating factors. There is no predictability to chest pressure nausea. [facility] Medical History CHF (congestive heart failure) [...] Allergy Unknown Verified 04/09/25 18:49 pentazocine (From Talwin) Allergy Other Verified 04/09/25 18:49 scopolamine Allergy [...] % (Auto) 49.3 Lymph % (Auto) 32.1 Beaufort % (Auto) 12.7 H Eos % (Auto) [...] without an acute cardiopulmonary abnormality. Reading Location: [facility] Management Discussion w/another healthcare provider: Hospitalist and Animal Care Taker ( cardiology) Discharge Plan Dx/Rx/DC Orders Clinical Impression: Chest pressure, HTN (hypertension), Elevated troponin, Chronic kidney disease Disposition Disposition: [facility] Care [facility] What to do if you have Problems For any increased pain, shortness of breath, bleeding, nausea or vomiting, chestpain, or any unexpected problems, contact your Primary Care Provider. Call [facility] ([phone]) or report to the closest Emergency Room. Call 911 if necessary. 04/09/252306 <Electronically signed by Serge Mcmullen MD> Cosigner Signature (if applicable): CC: Dr. Susannah Clemente MD ~ Signed [facility] Work Phone: [phone] Telephone encounter Note* Telephone Encounter - Tara Orona MA - 04/05/2025 4:03 PM EDT Placed form in pending paper slot above JOAN''s desk [facility]06-19-2025 Miscellaneous Notes* Telephone Encounter - Tara Orona MA - 04/05/2025 4:03 PM EDT Placed form in pending paper slot above JOAN''s desk * Telephone Encounter - Susannah Clemente MD - 04/05/2025 3:55 PM EDT This is an application to a wellness program at [facility]. I see that her Doper Operator has ordered a stress test and I would have to defer to him if there are any limitations after we receive results of the stress test. * Telephone Encounter - Tara Orona MA - 04/02/2025 10:04 AM EDT Placed form in Dr. Clemente's in basket, please sign [facility] Telephone encounter Note * Telephone Encounter - Susannah Clemente MD - 04/05/2025 3:55 PM EDT This is an application to a wellness program at [facility]. I see that her Doper Operator has ordered a stress test and I would have to defer to him if there are any limitations after we receive results of the stress test. [facility]06-18-2025 Telephone encounter Note* Telephone Encounter - [...] to ordering physician and to P PET TECHNICAL SUPPORT INTERN [facility] with recommendations. If all recommended orders are present route to P PET TECHNICAL SUPPORT INTERN MC [facility]06-18-2025 Miscellaneous Notes* Telephone Encounter - Dee [...] to ordering physician and to P PET TECHNICAL SUPPORT INTERN [facility] with recommendations. If all recommended orders are present route to P PET TECHNICAL SUPPORT INTERN [facility] * Telephone Encounter - Divine Cleary - 04/04/2025 8:46 AM EDT This form is used for MAIN CAMPUS APPOINTMENTS ONLY. Is this request for a [facility] [place] PET scan appointment? Yes: Engagement Specialist: Divine Calabrese Who do we call to schedule this appointment? Patient Requesting Staff [id number] Area Code + Phone/Pager: N/A PET Orders [...] day/next day medically urgent scans please call [phone] to expedite Send requests to P CARDIAC PET MD [facility] Telephone encounter Note * Telephone Encounter - Divine Cleary - 04/04/2025 8:46 AM EDT This form is used for MAIN CAMPUS APPOINTMENTS ONLY. Is this request for a [facility] [place] PET scan appointment? Yes: Engagement Specialist: Divine Calabrese Who do we call to schedule this appointment? Patient Requesting Staff [id number] Area Code + Phone/Pager: N/A PET Orders [...] day/next day medically urgent scans please call [phone] to expedite Send requests to P CARDIAC PET [facility]06-17-2025 Instructions* Patient Instructions* Paul Bautista MD - 04/03/2025 12:37 PM EDT Thank you for visiting the [facility] at the [facility]. Here are your instructions. 1. Increase indapamide to 2.5mg daily. 2. Continue Farxiga at 5mg daily. 3. Labs in 1 week after starting higher dose. 4. Schedule Stress test. 5. Return in 6 months with plans to discuss testing in interim. Please call with questions or concerns. Office: [phone] Paul Bautista MD documented in this encounterPike [facility]06-17-2025 NoteHNO ID: [id number] Author: PAUL BAUTISTA MD Service: ? Author Type: Physician Type: Progress Notes Filed: 04/03/2025 12:45 Note Text: Heart and Vascular [facility] SECTION OF HEART FAILURE and CARDIAC TRANSPLANT MEDICINE OUTPATIENT VISIT DATE April 03, 2025 OUTPATIENT VISIT TYPE Established Patient PRIMARY CARE PHYSICIAN: Susannah Clemente [address] [place] [address] CHIEF COMPLAINT: Shortness of breath and chest [...] 03/13/2011 no retinopathy detected -both eyes - [facility] - return in 1 year - Dr. [...] Passive exposure: Never Smokeless (more content not included)...[facility]06-17-2025 History of Present illness Narrative* Paul Bautista MD - 04/03/2025 11:15 AM EDT Images from the original note were not included. Heart and Vascular [facility] SECTION OF HEART FAILURE and CARDIAC TRANSPLANT MEDICINE OUTPATIENT VISIT DATE April 03, 2025 OUTPATIENT VISIT TYPE Established Patient PRIMARY CARE PHYSICIAN: Susannah Clemente [address] [place] [address] CHIEF COMPLAINT: Shortness of breath and chest [...] 03/13/2011 no retinopathy detected -both eyes - [facility] - return in 1 year - Dr. [...] ENLARGEMENT BORDERLINE ECG Confirmed by CHRIS SERRANO, [facility] ([id number]) on 07/03/2024 3:08:37 PM Latest Reference Range [...] Abs Lymph 1.00 - 4.00 k/uL 1.82 Beaufort% % 9.6 Abs Beaufort <0.87 k/uL 0.41 Eosin% % 1.4 Abs [...] non-medical management as above. Paul Bautista MD [facility] Section Of Heart Failure and Cardiac Transplant Medicine Heart [facility] Vascular [facility] Desk [address] [place] [address] documented in this encounterPike [facility] Hospital06-16-2025 Telephone encounter Note * Telephone Encounter - Tara Orona MA - 04/02/2025 10:04 AM EDT Placed form in Dr. Clemente's in basket, please sign [facility]06-10-[facility] Instructions* Patient Instructions* Susannah Clemente MD [...] review all the medicines you take, even mavu-czg-zmozddo medicines. As you get older, the way [...] have certain medical conditions. documented in this encounterPike [facility] Hospital06-10-2025 NoteHNO ID: [id number] Author: SUSANNAH CLEMENTE MD Service: ? Author Type: Physician Type: Progress Notes Filed: 03/27/2025 17:41 Note Text: Zenaida Evans is a 89 year old female here for a Medicare wellness visit. Recording using Segment software for draft documentation of the visit was discussed with the patient/authorized sales representative leather goods; all questions welcomed and answered. Patient/authorized sales representative leather goods agreed to proceed Zenaida Evans is a [...] and difficulty walking during a meeting in [facility]. A stress test was performed in July following this event, which showed her heart rate only reached 79% of the maximum, but no ischemia was detected. She has a follow-up appointment with her regional sales associate, Dr. Bautista, next week and an echocardiogram [...] Psychology Abena Melchor when daughter was sick [facility] Medical/Family history review Reviewed and updated problem list, medical/surgical/family/social history, medications, and allergies. FAMILY HISTORY Problem Relation Age of Onset Alzheimer's Disease Mother hypertension/stroke d89 Hypertension Mother Stroke Mother Heart Father heart failure, d 72 other (emphseyma) Sister d 59 other (healthy) Daughter Pancreati (more content not included)...[facility]06-10-2025 History of Present illness Narrative* Susannah Clemente MD - 03/27/2025 4:30 PM EDT Images from the original note were not included. Zenaida Evans is a 89 year old female here for a Medicare wellness visit. Recording using Segment software for draft documentation of the visit was discussed with the patient/authorized sales representative leather goods; all questions welcomed and answered. Patient/authorized sales representative leather goods agreed to proceed Zenaida Evans is a [...] and difficulty walking during a meeting in [facility]. A stress test was performed in July following this event, which showed her heart rate only reached 79% of the maximum, but no ischemia was detected. She has a follow-up appointment with her regional sales associate, Dr. Bautista, next week and an echocardiogram scheduled for the . Additionally, Zeniada reports intermittent abdominal discomfort, reminiscent of symptoms [...] record. Dr. Bautista Cardiology Dr. Candace Manning [facility] [place] Alicia Hylton, Breast Psychology Abena Melchor when daughter was sick [facility] Medical/Family history review Reviewed and [...] 2009. Assessment and Plan: # Atherosclerosis of [place] coronary artery of [place] heart without angina pectoris (I25.10) # Chronic [...] Bernadette daughter. listed as durable power of claims attorney for health care. Discussed COVID booster; [...] 09/26/2025). Susannah Clemente MD documented in this encounterPike [facility] Hospital04-21-2025 Telephone encounter Note * Telephone Encounter - Kelsi Deleon RN - 02/05/2025 4:58 PM EDT Pt returning call, Results and recommendations reviewed with Understanding [facility]04-21-2025 Miscellaneous Notes* Telephone Encounter - Kelsi Deleon RN - 02/05/2025 4:58 PM EDT Pt returning call, Results and recommendations reviewed with Understanding documented in this encounterPike Community Hospital04-04-2025 Telephone encounter Note * Telephone Encounter - Tara Orona MA - 01/19/2025 1:05 PM EDT Mailed to patient [facility]04-04-2025 Miscellaneous Notes* Telephone Encounter - Tara [...] Person calling: spouse: Tommy Call patient at: [phone] (home) [phone] (cell) Was an appointment scheduled: Closing statement: Juliet Maciel documented in this encounterPike Community Hospital04-04-2025 Telephone encounter Note * Telephone Encounter - Ruby Hurst PA-C - 01/19/2025 11:24 AM EDT Order placed, please inform patient [facility]04-04-2025 Telephone encounter Note* Telephone Encounter - Tara Orona MA - 01/19/2025 9:21 AM EDT Spoke with patient and stated that this was ordered in the past by Ruby Hurst and to use the DX on the previous order. Last order was 10/04/2023. [facility]04-02-[facility] Telephone encounter Note* Telephone Encounter - Keyona Mckeon LPN - 01/17/2025 8:15 AM EDT Left message for patient to return call. Message can be given upon returned call. [facility]04-01-2025 Telephone encounter Note* Telephone Encounter - Ruby Hurst PA-C - 01/16/2025 8:27 AM EDT Please find out reason for patient wanting medical massage as the order requires a diagnosis [facility]03-31-2025 Telephone encounter Note* Telephone Encounter - Juliet Ayala - 01/15/2025 11:05 AM EDT Tommy is calling Susannah Clemente MD today to request Orders (Medical Massage) Patient has been identified by name and birthdate. Duration of symptoms: N/A Person calling: spouse: Tommy Call patient at: [phone] (home) [phone] (cell) Was an appointment scheduled: Closing statement: Juliet Meadows [facility] Work Phone: [phone] Note* Addendum Note - Joanie House MD - 01/09/2025 3:30 PM EDTAddended by: JOANIE HOUSE on: 01/09/2025 03:30 PM Modules accepted: Orders [facility]03-25-2025 Miscellaneous Notes* Addendum Note - Joanie House MD - 01/09/2025 3:30 PM EDTAddended by: JOANIE HOUSE on: 01/09/2025 03:30 PM Modules accepted: Orders * Telephone Encounter - Leatha Levin - 01/08/2025 8:52 AM EDT Please see Pt MyAGENThart message Last visit 07/26/24 Please approve prescription and any additional refills and e-script to designated pharmacy. Thank you, Leatha Levin * Telephone Encounter - Joann Saenz RN - 01/05/2025 2:46 PM EDT Refills available documented in this encounterPike Community Hospital03-24-2025 Telephone encounter Note * Telephone Encounter - Tara Orona MA - 01/08/2025 12:45 PM EDT Patient is requesting from [employer]: Refills as follows: Requested Prescriptions Pending Prescriptions Disp Refills cloNIDine TTS (CATAPRES-TTS) 0.1 mg/24 hr 12 Patch 1 Sig: Apply 1 Patch as directed one time a week. Please review and advise. Last office visit 07/03/2024 Future office visit 03/27/2025 [facility] Miscellaneous Notes* Telephone Encounter - Tara Orona MA - 01/08/2025 12:45 PM EDT Patient is requesting from [employer]: Refills as follows: Requested Prescriptions Pending Prescriptions Disp Refills cloNIDine TTS (CATAPRES-TTS) 0.1 mg/24 hr 12 Patch 1 Sig: Apply 1 Patch as directed one time a week. Please review and advise. Last office visit 07/03/2024 Future office visit 03/27/2025 documented in this encounterPike Community Hospital03-24-2025 Telephone encounter Note * Telephone Encounter - Leatha Levin - 01/08/2025 8:52 AM EDT Please see Pt Mychart message Last visit 07/26/24 Please approve prescription and any additional refills and e-script to designated pharmacy. Thank you, Leatha Levin [facility]03-21-2025 Telephone encounter Note* Telephone Encounter - Joann Saenz RN - 01/05/2025 2:46 PM EDT Refills available [facility]01-30-2025 Telephone encounter Note* Telephone Encounter - Chiloquin Mara Maciel - 11/16/2024 9:21 AM EST Patient returned phone call and stated she will do the test, she stated thank you for the reminder,she appreciates the doctor remembering this. [facility]01-30-2025 Miscellaneous Notes* Telephone Encounter - Chiloquin Mara Maciel - 11/16/2024 9:21 AM EST [...] blood counts. Order placed. documented in this encounterPike Community Hospital01-29-2025 Telephone encounter Note * Telephone Encounter - Keyona Mckeon LPN - 11/15/2024 5:21 PM EST Left message for patient to return call. Message can be given upon returned call [facility]01-29-[facility] Telephone encounter Note* Telephone Encounter - Susannah Clemente MD - 11/15/2024 11:29 AM EST Recommend follow up complete blood count to keep an eye on blood counts. Order placed. [facility]01-07[facility] Telephone encounter Note* Telephone Encounter - Abena Peraza RN - 10/24/2024 11:17 AM EST Appt made 04/07/25 and pt placed on wait list [facility]01-07-2025 Miscellaneous Notes* Telephone Encounter - Abena Peraza RN - 10/24/2024 11:17 AM EST Appt made 04/07/25 and pt placed on wait list * Telephone Encounter - Johana Snyder - [...] calling: self Call patient at: at home [phone] (home) verified as best number per patient Was an appointment scheduled: No Closing statement: Results or non-symptom based questions: Thank you for calling [facility], your call will be returned within the next business day. Johana Kathleen documented in this encounterPike Community Hospital01-07-2025 Telephone encounter Note * Telephone Encounter [...] calling: self Call patient at: at home [phone] (home) verified as best number per patient Was an appointment scheduled: No Closing statement: Results or non-symptom based questions: Thank you for calling [facility], your call will be returned within the next business day. Johana Kathleen [facility]12-23-2024 Telephone encounter Note* Telephone Encounter - Tara Orona MA - 10/09/2024 7:54 AM EST [facility] [employer] [facility] Refills as follows: Requested Prescriptions Pending Prescriptions Disp Refills labetalol (TRANDATE) 200 mg tablet 180 tablet 1 Sig: Take 1 tablet by mouth two times a day. Please review and advise. Last office visit 07/03/2024 Future office visit 11/09/2024 [facility] Miscellaneous Notes* Telephone Encounter - Tara Orona MA - 10/09/2024 7:54 AM EST Patient is requesting from MyChart: Refills as follows: Requested Prescriptions Pending Prescriptions Disp Refills labetalol (TRANDATE) 200 mg tablet 180 tablet 1 Sig: Take 1 tablet by mouth two times a day. Please review and advise. Last office visit 07/03/2024 Future office visit 11/09/2024 documented in this encounterPike [facility] Hospital11-13-2024 Telephone encounter Note * Telephone Encounter - Dominguez Roach - 08/30/2024 9:35 AM EST Call from patient requesting refill. Requested Prescriptions Pending Prescriptions Disp Refills indapamide (LOZOL) 1.25 mg tablet 90 tablet 3 Sig: Take 1 tablet by mouth once daily. Patient last seen 03/30/24 Dominguez Roach [facility]11-13-2024 Miscellaneous Notes* Telephone Encounter - Dominguez Roach - 08/30/2024 9:35 AM EST Call from patient requesting refill. Requested Prescriptions Pending Prescriptions Disp Refills indapamide (LOZOL) 1.25 mg tablet 90 tablet 3 Sig: Take 1 tablet by mouth once daily. Patient last seen 03/30/24 Dominguez Roach documented in this encounterPike Community Hospital11-12-2024 Telephone encounter Note * Telephone Encounter - Tess Natarajan MA - 08/29/2024 10:55 AM EST NOV 11/09/24 SOL 07/13/24 Patient electronically sent [...] notify patient. Please review. Tess Natarajan MA [facility]11-12-2024 Miscellaneous Notes* Telephone Encounter - Tess [...] review. Tess Natarajan MA documented in this encounterPike Community Hospital10-09-2024 Instructions* Patient Instructions* Joanie House MD [...] please call the office. documented in this encounterPike Community Hospital10-09-2024 History of Present illness Narrative* Michelle [...] 03/13/2011 no retinopathy detected -both eyes - [facility] - return in 1 year - [...] Abs Lymph 1.00 - 4.00 k/uL 2.24 Beaufort% % 14.7 Abs Beaufort <0.87 k/uL 0.83 Eosin% % 3.0 Abs [...] Past Histories independently gathered by the clinical business support liaison and the remaining scribed note accurately describes [...] of service preparing to see the patient, tkuz-qd-qxya patient care, completing clinical documentation, obtaining and/or reviewing separately obtained history, performing a medically appropriate examination and counseling and educating the patient/family/wound care technician Michelle Choudhary MD Patient notified of bx result, SK 07/28 Michelle Choudhary MD documented in this encounterPike Community Hospital10-09-2024 NoteHNO ID: [id number] Author: MICHELLE CHOUDHARY MD Service: ? Author [...] 03/13/2011 no retinopathy detected -both eyes - [facility] - return in 1 year - [...] facility-administered medications for this visit. Latest Ref [facility] 06/24/2024 WBC 3.70 - 11.00 k/uL 5.66 [...] Abs Lymph 1.00 - 4.00 k/uL 2.24 Beaufort% % 14.7 Abs Beaufort <0.87 k/uL 0.83 Eosin% % 3.0 Abs [...] I Hair pull: negati (more content not included)...[facility] 07-17-2024 NoteHNO ID: [id number] Author: DOMINGUEZ HARKINS MD Service: ? Author [...] Farxiga with the prescribing physician. Dominguez Harkins, [facility]09-30-2024 History of Present illness Narrative* [...] physician. Dominguez Harkins MD documented in this encounterPike [facility] Hospital09-27-2024 History of Present illness Narrative* Rahul Adams RT(R) - 07/14/2024 9:30 AM EDT Radiology Service [...] PATIENT PRESENTS WITH AN IMPLANTABLE OR ATTACHED MAIL LIST LIBRARIAN: No RADIOLOGY DEPARTMENT: General X-ray: Exam(s) Completed: Chest X-Ray PERIPHERAL IV DATA: Not applicable SIGNED BY: AUGUSTIN Wells) July 14, 2024 9:21 AM documented in this encounterPike Community Hospital09-27-2024 NoteHNO ID: [id number] Author: RAHUL ADAMS RT (R) Service: Radiology Author Type: Technologist Type: Progress [...] PATIENT PRESENTS WITH AN IMPLANTABLE OR ATTACHED MAIL LIST LIBRARIAN: No RADIOLOGY DEPARTMENT: General X-ray: Exam(s) Completed: Chest X-Ray PERIPHERAL IV DATA: Not applicable SIGNED BY: AUGUSTIN Wells) July 14, 2024 9:21 [facility]09-26-2024 NoteHNO ID: [id number] Author: ERWIN ROSALES MD Service: ? Author Type: Physician Type: Progress Notes Filed: 07/13/2024 15:01 Note Text: This note was created using ACTIVE Network[employer]. 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 documented in this encounterPike [facility] Hospital09-25-2024 Telephone encounter Note * Telephone Encounter - Sally Ha RN - 07/12/2024 9:07 AM EDT Offered next day appointment with Dr. Rosales, patient states that she sees Dr. Bautista [facility]. Advised her to call his office and I would forward to his office. Reason for Disposition [1] MILD difficulty breathing (e.g., minimal/no SOB at rest, SOB with walking, pulse <100) AND [2] NEW-onset or WORSE than normal Answer Assessment - Initial Assessment Questions 1. RESPIRATORY STATUS: Describe your breathing? (e.g., wheezing, shortness of breath, unable to speak, severe coughing) [place] SOB and chest heaviness for the first [...] travel history, exposures) denies Protocols used: Breathing Brmajzcwsw-UCKJR-MR [facility]09-25-2024 Miscellaneous Notes* Telephone Encounter - Sally Ha RN - 07/12/2024 9:07 AM EDT Offered next day appointment with Dr. Rosales, patient states that she sees Dr. Bautista [facility]. Advised her to call his office and I would forward to his office. Reason for Disposition [1] MILD difficulty breathing (e.g., minimal/no SOB at rest, SOB with walking, pulse <100) AND [2] NEW-onset or WORSE than normal Answer Assessment - Initial Assessment Questions 1. RESPIRATORY STATUS: Describe your breathing? (e.g., wheezing, shortness of breath, unable to speak, severe coughing) [place] SOB and chest heaviness for the first [...] travel history, exposures) denies Protocols used: Breathing Lmmxfmvjqv-QUGZQ-EG * Telephone Encounter - Abena Peraza RN - 07/11/2024 3:39 PM EDT Vm left to call and speak with a nurse * Telephone Encounter - Helga Ly RN - 07/11/2024 2:11 PM EDT Images from the original note were not included. LM for patient to call back Scheduled patient for appointment tomorrow at 910 with Jose please triage and ask patient if she wants appointment tomorrow Zenaida Malin [facility] (supporting Susannah Clemente MD)1 minute ago (2:09 PM) Cristino Clemente: I thought I should report a recent issue which could be heart related. On WednesdayI was attending a conference in [place]. Because it started early I couldn't find [...] I routinely use the treadmill at the [employer] and do a mile or so at [facility] with no great effort. The same response occurred on my return to the parking area. I was concerned butfelt fine the next day and since. I did book the stress echo for the Jul. I wonder if this could be a reaction to the stress of my daughter's cancer diagnosis. Thanks, Zenaida Evans documented in this encounterPike Community Hospital09-24-2024 Telephone encounter Note * Telephone Encounter - Abena Peraza RN - 07/11/2024 3:39 PM EDT Vm left to call and speak with a nurse [facility]09-24-2024 Telephone encounter Note* Telephone Encounter - Helga Ly RN - 07/11/2024 2:11 PM EDT Images from the original note were not included. LM for patient to call back Scheduled patient for appointment tomorrow at 910 with Jose please triage and ask patient if she wants appointment tomorrow Zenaida Malin [facility] (supporting Susannah Clemente MD)1 minute ago (2:09 PM) Cristino Clemente: I thought I should report a recent issue which could be heart related. On WednesdayI was attending a conference in [place]. Because it started early I couldn't find [...] I routinely use the treadmill at the [employer] and do a mile or so at 3mph with no great effort. The same response occurred on my return to the parking area. I was concerned butfelt fine the next day and since. I did book the stress echo for the Jul. I wonder if this could be a reaction to the stress of my daughter's cancer diagnosis. Thanks, Zenaida Evans [facility]09-24-2024 Telephone encounter Note* Telephone Encounter - Helga Ly RN - 07/11/2024 2:10 PM EDT See nurse triage note [facility]09-24-2024 Miscellaneous Notes* Telephone Encounter - Helga Ly RN - 07/11/2024 2:10 PM EDT See nurse triage note documented in this encounterPike Community Hospital09-16-2024 Telephone encounter Note * Telephone Encounter - Susannah Clemente MD - 07/03/2024 2:50 PM EDT Continues adjacent hospital follow-up and 1 day release on November 09 at 11:10 [facility]09-16-2024 Miscellaneous Notes* Telephone Encounter - Susannah [...] her to be seen. documented in this encounterPike Community Hospital09-16-2024 Telephone encounter Note * Telephone Encounter - Phyllis Crook - 07/03/2024 11:54 AM EDT Patient wanted me to contact you, nothing available for medicare wellness in 4 months, I offered marcus Beltran, pt declined, next available was february. Patient wanted me to message you to see if May was okay for her to be seen. [facility]09-16-2024 NoteHNO ID: [id number] Author: SUSANNAH CLEMENTE MD Service: ? Author Type: Physician Type: Progress Notes Filed: 07/03/2024 11:03 Note Text: Note created with [employer]: HPI The patient is a 89-year-old [...] 4.00 k/uL 1.67 1.87 1.88 1.62 2.24 Beaufort% % 10.5 11.3 13.1 11.6 14.7 Abs Beaufort <0.87 k/uL 0.46 0.50 0.50 0.53 0.83 [...] approximately six mon (more content not included)... [facility]09-16-2024 History of Present illness Narrative* Susannah Clemnete MD - 07/03/2024 10:39 AM EDT Note created with [employer]: HPI The patient is a 89-year-old [...] 4.00 k/uL 1.67 1.87 1.88 1.62 2.24 Beaufort% % 10.5 11.3 13.1 11.6 14.7 Abs Beau[place] <0.87 k/uL 0.46 0.50 0.50 0.53 0.83 [...] 4 months (around 11/02/2024) for Medicare Wellness. Susnanah Clemente MD documented in this encounterPike Community Hospital09-09-2024 NoteHNO ID: [id number] Author: EMILEE CRUMP APRN.NARROW GAUGE OPERATOR Service: ? Author Type: Nurse Practitioner Type: [...] if change in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 [facility]10-[facility]23 Miscellaneous Notes* Telephone Encounter - Katey Melo - 08/16/2023 9:38 AM EDT Patient last seen 02/2023 RX Minoxidil Please approve prescription and any additional refills and e-script to designated pharmacy. Thank you, aKtey Melo documented in this encounterPike [facility] Hospital10-20-2023 History of Present illness Narrative* Migel Garcia PA-C - 08/06/2023 10:58 AM EDT Images from the original note were not included. Migel Garcia PA-C [facility] [address] [address] 08/06/2023 ASSESSMENT AND PLAN: Assessment : Encounter [...] the pelvis and sacrum. She has tried care connector, massage therapy every 2 weeks, acupuncture, TENS unit in the chiropractic office, and physical therapy a number of years ago. All of these things have given her moderate relief without long-lasting relief. She uses occasional Aleve for her symptoms and finds that walking on a treadmill seems to help a little bit too. She participates in daily exercising at the [employer] fitness center in [facility]. EXAM Highlights: She mobilizes somewhat slowly [...] perhaps try supervised PT again at the [facility]. She will return here if symptoms [...] today with this patient visit. This includes tkmf-rx-yhmm time, review of chart records regarding conservative care history, spine- pertinent imaging, and communication/care coordination with referring provider, problem-specific history-taking and counseling/education regarding treatment options. cc: Susannah Clemente [address] [facility] [address] Results of consultation to be transmitted via electronic medical record for those providers who practice within [facility] or with access to Qriously via MD Connect, or via letter. ######################################################################## [...] injection (DEFINITY) INTRAVENOUS DIRECTED PRN Le Orourke APRN.NARROW GAUGE OPERATOR sodium chloride 0.9 % (flush) 10 mL (BD POSIFLUSH) 10 mL INTRAVENOUS DIRECTED PRN Le Orourke, JUSTEN.NARROW GAUGE OPERATOR Allergies: Scopolamine, Amlodipine, Hctz [Thiazides], Hydralazine, Iron, [...] 03/13/2011 no retinopathy detected -both eyes - [facility] - return in 1 year - Dr. [...] STUDIES: See discussion above documented in this encounterPike [facility] Hospital10-18-2023 History of Present illness Narrative* Fabiola [...] IV DATA: Not applicable SIGNED BY: Cesar aHnd August 04, 2023 12:48 PM documented in this encounterPike [facility] Hospital10-09-2023 Instructions* Patient Instructions* Cristina Lara, AUD - 07/26/2023 2:14 PM EDT Images from the original note were not included. [facility] [place] Section of Audiology Thank you for trusting the [facility] department with your hearing healthcare [...] technology, please call our scheduling line at [phone] and ask for a Hearing Aid Evaluation appointment at your preferred [facility] location. You can request this appointment with your crm business analyst through [email or web address], as well. In order to investigate a potential insurance benefit for hearing aids, please plan to schedule your appointment for at least 1 week from the time of your phone call so that your insurance benefit can be verified. If there is no insurance benefit, please be aware there is a $100 lnv-rl-lsluuv fee due at time of service. Listed [...] strategies to enhance communication ability. * Call [phone] to schedule an appointment to assess your need for hearing aids. Request a HAE appointment. Thank you for trusting and choosing [facility] with your hearing care needs. Pleasedo not hesitate to reach out with any questions or concerns. Sincerely, RODY Dejesus, [facility] Clinical and Senior Hearing Implant Assistant At Surgery documented in this encounterPike Community Hospital10-09-2023 History of Present illness Narrative* Cristina Lara AUD - 07/26/2023 1:45 PM EDT Head and [place]ck [place] AUDIOLOGIC EVALUATION REPORT Name: Zenaida Evans [facility]#: [id number] Date of Service: 07/26/2023 Date of : 1935 Age: [age] year old Referred by: Susannah Clemente MD Referred for: Evaluation of suspected change in hearing, tinnitus, or balance. Referral documented: In an order in [facility] Patient's major complaints: Hearing loss: mostly difficult [...] evaluation of middle ear function. CPT code: 08336 RIGHT EAR: Did not test. LEFT EAR: Did not test. ACOUSTIC REFLEXES Description of procedure: This test is an objective measure of auditory and facial nerve pathways. CPT code: 44124, 64988 RIGHT EAR PROBE EAR: (ipsi right stimulus [...] and boneconduction and speech recognition testing. CPT code:85452 RIGHT EAR: Hearing Sensitivity: Mild sloping to [...] strategies to enhance communication ability. * Call [phone] to schedule an appointment to assess your need for hearing aids. Request a HAE appointment. Rody Dejesus, [facility] Clinical and Senior Hearing Implant Assistant At Surgery copied to: Susannah Clemente MD [place] Abbrev- iation Definition Degree of hearing sensitivity dB range WNL within normal limits WNL 0 - 20 SNHL sensorineural hearing loss Mild 20-40 CHL conductive hearing loss Moderate 40-55 MHL mixed hearing loss Moderately-Severe 55-70 WRS word recognition score Severe 70-90 ME middle ear Profound 90 + TM tympanic membrane documented in this encounterPike [facility] Hospital09-21-2023 History of Present illness Narrative* Tracy [...] radiation safety can be found usingthis link: [email or web address] SIGNATURE: AUGUSTIN Wiseman) PATIENT NAME: Zenaida Evans DATE: July 08, 2023 TIME: 12:46 PM PAGER/CONTACT #: documented in this encounterPike Community Hospital09-18-2023 History of Present illness Narrative* Susannah [...] sexual function:Not at all denies bladder concerns. [place] anxious, stressed, angry, irritable, lonely, isolated, or had thoughts of hurting themself: Not at all Has little interest or pleasure in doing things: Several days Bothered by feeling down, depressed, or hopeless: Several days States stressful caring for . Is now at [facility], now getting rehab. Needs help with grocery shopping, cooking, housework, bathing, grooming, dressing, eating, sitting or standing, walking, using the toilet, handling finances, taking medications, using the telephone, or driving: Yes Ordering several meals a week from someone. 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 Driving okay. Can afford a pile driver. Following safety precautions in the home [...] in the medical record. Dermatology new in [place] for Basal Cell Cardiology Gastroenterology Alicia Hylton [...] (1.69m) Wt 133 lb 4 oz (60.4kg) [id number]% BMI 21.19 kg/(m^2). Hemoglobin (g/dL) Date Value [...] Abs Lymph 1.00 - 4.00 k/uL 1.81 Beaufort% % 9.6 Abs Beaufort <0.87 k/uL 0.41 Eosin% % 3.3 Abs [...] RX Susannah Clemente MD documented in this encounterPike Community Hospital06-22-2023 History of Present illness Narrative* Kelsi [...] visits planned) Planned Treatment Interventions: Therapeutic exercise (68594), Neuromuscular re- education (53659), Manual therapy (99368), Therapeutic activities (53625), Self- intermediate management (58554), Gait Training (41855), Patient/Family/Caregiver Education PLAN FOR NEXT VISIT: DC [...] States/Identifies, Return Demonstration TREATMENT: PT Treatment Interventions: Self-Alf Management Evaluation Self-Alf Management: 1: provided pt. education with images: [...] 30 Kelsi Souza PT documented in this encounterPike Community Hospital06-16-2023 History of Present illness Narrative* Lyndsay Krishnamurthy - 04/02/2023 12:26 PM EDT EVENT MONITOR DISPOSABLE PATCH INSTRUCTIONS Patient Name: Zenaida Evans Clinic Number: [id number] Skin prepped and cleansed with alcohol Patch secured to prepped area Monitor Activated Serial #: [id number] Patient Instructed: Prescribed order timeframe Bathing guidelines Usage of event button and diary documentation Return of monitor at the end of prescribed order Call with problems [phone] or [phone] ext. [phone] Patient expresses a good understanding of instructions Lyndsay Krishnamurthy documented in this encounterPike [facility] Hospital06-15-2023 History of Present illness Narrative* Kelsi [...] 01, 2023 10:12 AM documented in this encounterPike Community Hospital06-06-2023 History of Present illness Narrative* Susannah [...] improve. Susannah Clemente MD documented in this encounterPike Community Hospital05-22-2023 Miscellaneous Notes* Telephone Encounter - Sally [...] yes, no; LMP) N/a Protocols used: Back Ycar-PRSPA-SK documented in this encounterPike Community Hospital05-09-2023 Miscellaneous Notes* Telephone Encounter - Tara Orona MA - 02/23/2023 10:23 AM EDT Gave message to patient, expressed understanding Mailed to patient * Telephone Encounter - Susannah Clemente MD - 02/23/2023 10:05 AM EDT Order printed in my outbox. documented in this encounterPike Community Hospital04-15-2023 History of Present illness Narrative* Kelsi Zavala APRN.NARROW GAUGE OPERATOR - 01/30/2023 9:53 AM EDT This note was created using Unified Colorriter. Subjective Zenaida Evans is a 87 year [...] history is provided by the patient. No speech/language therapist was used. Sore Throat This is a [...] 03/13/2011 no retinopathy detected -both eyes - [place] [facility] - return in 1 year - Dr. [...] week Kelsi Zavala APRN.URMILA documented in this encounterPike Community Hospital03-22-2023 Miscellaneous Notes* Letter - Mammography Coordinator - 01/06/2023 4:13 PM EDT January 07, 2023 PID: [id number] Zenaida Evans [address] [place] [address] Dear Ms. Evans, We are pleased to [...] report will be [facility] as part of your permanent medical record and are available for your continuing care. Thank you for allowing us to help in meeting your health care needs. Sincerely, Dr. Laughlin Interpreting Radiologist [facility] (Normal over 40) documented in this encounterPike Community Hospital03-21-2023 History of Present illness Narrative* Barbara Paulino RT(Renny) - 01/05/2023 3:30 PM EDT Radiology Service [...] IV DATA: Not applicable SIGNED BY: RT Lidia(Renny) January 05, 2023 3:35 PM documented in this encounterPike Community Hospital03-21-2023 History of Present illness Narrative* Alicia Hylton, JUSTEN.NARROW GAUGE OPERATOR - 01/05/2023 3:05 PM EDT MEDICAL BREAST PATIENT NAME: Zenaida Evans REASON FOR VISIT: Annual Exam and Mammogram HISTORY of PRESENT ILLNESS: Zenaida Evans 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 She underwent a right NL PM with [...] D 2000 units. BMD: Yes, Date in [facility]: 01/02/21; lowest T Score - 0.8-Normal PERSONAL [...] above CANCER SURVEILLANCE: Mammograms: Yes, Date in [facility]: 08/18/21; results - Negative michelle Breast MRI: Yes, Date in Epic: 08/15/12; results - Negative Colonoscopy: Yes, Date in [facility]: 09/08/13; results - Diverticulosis-repeat in 10 yrs [...] 03/13/2011 no retinopathy detected -both eyes - [place] [facility] - return in 1 year - Dr. [...] which included preparing to see the patient, pjii-lo-cpna patient care, completing clinical documentation, obtaining and/or reviewing separately obtained history, performing a medically appropriate examination, counseling and educating the pat ient/family/caregiver, ordering medications, tests, or procedures, communicating results to the patient/family/caregiver, and care coordination (not separately reported). Alicia Hylton APRN.URMILA Medical Breast Specialist Women's Health Nurse Practitioner CC: Susannah Clemente MD [facility] [place] [address] documented in this encounterPike Community Hospital02-07-2023 History of Present illness Narrative* Erwin [...] 03/13/2011 no retinopathy detected -both eyes - [place] [facility] - return in 1 year - Dr. [...] mL injection (DEFINITY) INTRAVENOUS DIRECTED PRN Le Orourke, CLOTH SANDER.NARROW GAUGE OPERATOR sodium chloride 0.9 % (flush) 10 mL (BD POSIFLUSH) 10 mL INTRAVENOUS DIRECTED PRN Le Orourke, CLOTH SANDER.NARROW GAUGE OPERATOR ALLERGIES Allergen Reactions Scopolamine Mental Status Change [...] trigger finger Informed Consent Consent Obtained: Verbal [place] Protocol A moment to CARE was completed. [...] applicable Erwin Maria MD documented in this encounterPike Community Hospital02-03-2023 Instructions* Patient Instructions* Le Orourke APRN.CNP - 11/20/2022 11:27 AM EST -No medication changes today. -Please have blood work drawn on 01/12/2023 and I will follow-up with you when I get the results. -Follow-up with Dr. Bautista on 04/02/2023 with echo (if possible). documented in this encounterPike Community Hospital02-03-2023 History of Present illness Narrative* Le Orourke APRN.CNP - 11/20/2022 10:26 AM EST Images from the original note were not included. Heart and Vascular [place] [facility] SECTION OF HEART FAILURE and CARDIAC TRANSPLANT MEDICINE OUTPATIENT VISIT DATE 11/20/2022 PRIMARY CARE PHYSICIAN: Susannah Clemente [address] [place] [address] PRIMARY HEART FAILURE NUCLEAR SECURITY OFFICER: Dr. Bautista CHIEF COMPLAINT: Follow-up HISTORY OF [...] 03/13/2011 no retinopathy detected -both eyes - [place] [facility] - return in 1 year - Dr. [...] with the prior echocardiographic exam performed on 11/4/16 STRESS. Similar rest findings. Labs: Component Latest [...] 1,228 (H) 1,026 (H) 1,120 (H) See [facility] for details of other cardiac testing. IMPRESSION: [...] 0.1 mg patch weekly Device therapy: no, [place]om[place] indian tribe QRS: 80 ms Sleep apnea: no Anemia: [...] since starting indapamide. Discussed with Nanette Corado PharmReanna and she recommends that we continue medication [...] as above. Le Orourke MSN, ACNP-BC, CHFN, [facility] Section Of Heart Failure and Cardiac Transplant Medicine Heart [facility] [place] [facility] Desk J3-[address] [address] documented in this encounterPike Community Hospital01-12-2023 Miscellaneous Notes* Telephone Encounter - Keyona [...] 10/22/2022 7:28 PM EST documented in this encounterPike Community Hospital12-22-2022 Miscellaneous Notes* Telephone Encounter - Crystal [...] with primary care provider. documented in this encounterPike Community Hospital12-22-2022 History of Present illness Narrative* Kelsi [...] 08, 2022 11:09 AM documented in this encounterPike Community Hospital12-19-2022 History of Present illness Narrative* Ramandeep [...] 03/13/2011 no retinopathy detected -both eyes - [facility] - return in 1 year - [...] dip. Ramandeep Nieto PA-C documented in this encounterPike Community Hospital12-15-2022 History of Present illness Narrative* Susannah [...] Abs Lymph 1.00 - 4.00 k/uL 2.10 Beaufort% % 10.4 Abs Beaufort <0.87 k/uL 0.50 Eosin% % 3.3 Abs [...] 12/30/2022). Susannah Clemente MD documented in this encounterPike Community Hospital12-15-2022 Evaluation note* Diagnosis Stage 3 chronic [...] kidney disease (HCC) documented in this encounter [facility]11-28-[facility] History of Present illness Narrative* Rosendo Rodgers MD - 09/14/2022 2:43 PM EST Phone call. Reviewed labs, hemoglobin normal. Plan recheck in spring. 10 minute phone call. Rosendo Rodgers MD September 14, 2022 documented in this encounterPike Community Hospital11-25-2022 Miscellaneous Notes* Telephone Encounter - Letitia Kaufman - 09/11/2022 8:46 AM EST [facility] FO[facility]-UP NOTE Patient identified by [...] patient once the orders are in at [phone]. Thank you documented in this encounterPike Community Hospital11-16-2022 Instructions* Patient Instructions* Paul Bautista MD - 09/02/2022 1:56 PM EST Thank you for visiting the [facility]. Here are your instructions. 1. Only take your furosemide as needed for weight gain of 3lbs in a day or 5lbs in a week. 2. Start indapamide 1.25mg per day. 3. Obtain labs in 1 week. 4. Return in 3 months with GILL BOX TENDER and 6 months with me. Please call with questions or concerns. Office: [phone] Paul Bautista MD documented in this encounterPike Community Hospital11-16-2022 History of Present illness Narrative* Paul Bautista MD - 09/02/2022 1:15 PM EST Images from the original note were not included. [facility] [place] [facility] SECTION OF HEART FAILURE and CARDIAC TRANSPLANT MEDICINE OUTPATIENT VISIT DATE September 02, 2022 OUTPATIENT VISIT TYPE Established Patient PRIMARY CARE PHYSICIAN: Susannah Clemente [address] [place] [address] CHIEF COMPLAINT: Feeling well NURSING INTAKE (Patient [...] in 04/2020 when she presented to her regional sales associate with peripheral edemarequiring furosemide. Her ntprobnp had [...] 03/13/2011 no retinopathy detected -both eyes - [place] [facility] - return in 1 year - Dr. Ruby hair thinning sees Dr Choudhary Hormone replacement therapy (HRT) 1974-present stopped by 09/2011 hx of low vitamin D treated 08/2007 20.4 recheck only 23 9 improved to 54 PMH - PAST MEDICAL [...] non-medical management as above. Paul Bautista MD [facility] Section Of Heart Failure and Cardiac Transplant Medicine Heart [facility] [place] [facility] Desk J3-[address] [place] [address] documented in this encounterPike Community Hospital10-20-2022 Miscellaneous Notes* Telephone Encounter - Megan [...] time. * Telephone Encounter - Nadja Mosley [facility] - 08/06/2022 12:02 PM EDT Pt calling for a refill on her Ipratropium .06% spray. I did not see it on med list. Thank you! documented in this encounterPike Community Hospital10-05-2022 Miscellaneous Notes* Telephone Encounter - Michelle Choudhary MD - 07/22/2022 5:36 PM EDT Zenaida Evans is a 87 year old female Refilled oral minoxidil 1.25 a day Michelle Choudhary MD documented in this encounterPike Community Hospital09-29-2022 History of Present illness Narrative* Susannah Clemente MD - 07/16/2022 11:47 AM EDT Patient presents with: Follow Up States was at [facility] and looked into the water. States did look into it earlier. The govt had a bill. Some of the chemicals are: Benzene (discussed possible effect on bone marrow AML, CLL) Tetrachloroethylene (discussed acute toxicity, neuro, pulmonary and GI) Trichloroethylene Vinyl Chloride (liver cancer). Discussed and will check in with them. States blood pressure at home has been very good. Did see Doper Operator who ran a 24 hour blood pressure. [...] ICD9: V03.89, ICD10: Z23 (primary diagnosis) - [employer] COVID-19 BIVALENT BOOSTER VACCINE, AGE 12+ YR [...] 10/15/2022). Susannah Clemente MD documented in this encounterPike Community Hospital08-15-2022 History of Present illness Narrative* Dennys [...] by mouth two times a week. Lmefol Jj-ddiyzf-tmO71-algal (CEREFOLIN NAC, ALGAL OIL,) 6 mg-600 mg- [...] Pressure in Adults: A Report of the [place] [employer]/[place] [employer] Association Task Force on Clinical Practice Guidelines. Hypertension. 2018 Theo;71(6):b58-m374. Epub 2016Aug 30. The ABPM should be [...] all individual readings will be scanned into [employer], which can be reviewed under scanned documents. Dennys Gzuman MD documented in this encounterPike Community Hospital08-01-2022 Instructions* Patient Instructions* Paul Bautista MD - 05/18/2022 10:27 AM EDT Thank you for visiting the [facility]. Here are your instructions. I'm concerned [...] Please call with questions or concerns. Office: [phone] Paul Bautista MD documented in this encounterPike Community Hospital08-01-2022 History of Present illness Narrative* Paul Bautista MD - 05/18/2022 9:30 AM EDT Images from the original note were not included. [facility] [place] [facility] SECTION OF HEART FAILURE and CARDIAC TRANSPLANT MEDICINE OUTPATIENT VISIT DATE May 18, 2022 OUTPATIENT VISIT TYPE Consultation PRIMARY CARE PHYSICIAN: Susannah Clemente [address] [place] [address] CHIEF COMPLAINT: Shortness of breath NURSING INTAKE [...] in 04/2020 when she presented to her regional sales associate with peripheral edemarequiring furosemide. Her ntprobnp had [...] 03/13/2011 no retinopathy detected -both eyes - [facility] - return in 1 year - [...] by mouth two times a week. Lmefol Ig-lluzce-atD70-algal (CEREFOLIN NAC, ALGAL OIL,) 6 mg-600 mg- [...] 2019;22(1):148-158. doi: 10.1002/ejhf.1621. Epub 2018Aug 07. PMID: [id number]. PLAN AND RECOMMENDATIONS: 86 yo male with [...] LVH or low voltage and her echocardiogram [id number] does not show any overt cardiac remodeling. She has NYHA class IIIa symptoms when dealing withinclines. Given her NTprobnp, will start SGLT2i. We had a discussion about urogenital infections. In addition, we discussed possibilities of fluctuation in eGFR but overall, SGLT2i being very good for renal function mcfp. We will also assess ambulatory blood pressure [...] non-medical management as above. Paul Bautista MD [facility] Section Of Heart Failure and Cardiac Transplant Medicine Heart [facility] [place] [facility] Desk J3-[address] [place] [address] documented in this encounterPike Community Hospital07-28-2022 Instructions* Patient Instructions* Jodi Hatfield RN [...] at patients earliest convienence documented in this encounterPike Community Hospital07-28-2022 History of Present illness Narrative* Michelle [...] 03/13/2011 no retinopathy detected -both eyes - [place] [facility] - return in 1 year - Dr. [...] by mouth two times a week. Lmefol Tc-kxpkas-puK48-algal (CEREFOLIN NAC, ALGAL OIL,) 6 mg-600 mg- [...] Abs Lymph 1.00 - 4.00 k/uL 1.40 Beaufort% % 11.2 Abs Beaufort <0.87 k/uL 0.40 Eosin% % 2.2 Abs [...] of service preparing to see the patient, badq-zk-jjzt patient care, completing clinical documentation, obtaining and/or reviewing separately obtained history, performing a medically appropriate examination and counseling and educating the patient/family/wound care technician Michelle Choudhary MD documented in this encounterPike Community Hospital07-01-2022 History of Present illness Narrative* Rosendo [...] 03/13/2011 no retinopathy detected -both eyes - [place] [facility] - return in 1 year - Dr. [...] early 1969's Hysterectomy, CAROL, due to fibroids. FAMILY HISTORY [...] by mouth two times a week. Lmefol Mi-vxifsf-csW92-algal (CEREFOLIN NAC, ALGAL OIL,) 6 mg-600 mg- [...] which included preparing to see the patient, ylsj-jo-cwfv patient care, completing clinical documentation, obtaining and/or reviewing separately obtained history, counseling and educating the patient/family/caregiver, independently interpretin g results (not separately reported) and communicating results to the patient/family/caregiver. Electronically Signed: Rosendo Rodgers MD April 17, 2022 11:04 AM documented [facility] encounterP[facility] History of Present illness Narrative* Susannah Clemente MD - 04/14/2022 10:09 AM EDT Patient presents with: Follow Up Had appointment with hematology, changed the date. At home highest blood pressure is low 130's. Forgot meds this morning. Ever since diagnosed with congestive heart failure, had some concerns. States the Doper Operator didn't have any significant. Would like to [...] 4.00 k/uL 2.30 1.53 1.79 1.92 1.77 [place]% % 10.9 10.5 11.8 11.5 12.1 Abs [place] <0.87 k/uL 0.54 0.42 0.70 0.48 0.51 [...] [facility] Ref[facility] reviewed last echo with normal left [...] slot.. Susannah Clemente MD documented in [facility] encounterP[facility]06[facility] History of Present illness Narrative* Erwin [...] 24, 2022 11:19 AM documented in this encounterP[facility]05[facility] Miscellaneous Notes* Telephone Encounter - Sally [...] Please assist in canceling. documented in this encounterP[facility]05-[facility]22 History of Present illness Narrative* Leigh [...] 17, 2022 11:05 AM documented in [facility]04[facility] History of Present illness Narrative* Kelsilexa Rosa, OT/L - 02/10/2022 2:26 PM EDT Episode [...] WITH LEVEL OF FUNCTION: Hand Strength L Laser Beam Machine Operator Position 2 (lbs): 36 lbs UE [...] facilitated with verbal, visual and tactile cuing. Self-Alf Management: 1: Conitnue with comfort cool for [...] 43 Total Treatment Time Minutes (timed/untimed): 43 BEN Diaz/Cathryn, OTD documented in this encounterP[facility]04-19-2022 NoteHNO ID: [id number] Author: Laverne Helms OT/Cathryn Service: ? Author [...] THERAPY OCCUPATIONAL THERAPY TREATMENT NOTE ASSESSMENT: Zenaida J Cristina tolerated the session with expected muscle soreness. [...] as thumb continues to progress. Able unload thumb sewer w/ surgical hand. Pain: Pain Pain Level: [...] Therapeutic Exercise Treatment Minutes: 40 Laverne Helms OT/[facility] [id number] History of Present illness Narrative* DEBORAH Saleem [...] as thumb continues to progress. Able unload thumb sewer w/ surgical hand. Pain: Pain Pain Level: [...] Minutes: 40 DEBORAH Saleem documented in this encounterP[facility]04-12-2022 NoteHNO ID: [id number] Author: DEBORAH Saleem Service: ? Author Type: Occupational Therapist Type: Progress Notes Filed: 01/27/2022 12:27 PM Note Text: The patient did not show up for this appointment.[facility] [id number] History of Present illness Narrative* DEBORAH Saleem - 01/27/2022 12:26 PM EDT The patient did not show up for this appointment. documented in this encounterP[facility]04-05-2022 Miscellaneous Notes* Addendum Note - DEBORAH Diaz - 01/20/2022 10:12 AM EDT Addended by: KELSI ROSA on: 01/20/2022 10:12 AM Modules accepted: Orders documented in this encounterP[facility]04-05-2022 History of Present illness Narrative* DEBORAH [...] for day use. Was seen by orthotic fitter in therapy, and doing well from OT [...] gardening tasks New goal: Patient will increase beater boss strength to 30# or greater with left hand in order to complete meal preparation and moderate daily tasks. Planned Interventions, Frequency, and Duration: 1x/week, 4 weeks Total Number of Visits Planned: 4 Planned Treatment Interventions: Custom orthosis fabrication;Prefabricated orthosis fitting;Self-intermediate management (00437);Therapeutic exercise (78115) PLAN FOR NEXT VISIT: heat, motion, progress with strength (possible putty) SUBJECTIVE: 8 wks s/p arthroplasty and suspensionplasty of L thumb. Patient has been wearing OTS thumb spica on surgical thumb for day/night use. Reports as time goes on she is able to complete lightdaily tasks as thumb continues to progress. Able unload thumb sewer w/ surgical hand. Functional Limitations: lifting;heavy exertion;cleaning;dressing;cooking;carrying;pushing;pulling;gripping;weight [...] Location: Left thumb/wrist Edema Description: Mild Strength: Laser Beam Machine Operator Position 2;Pinch Meter Sensation: Denies tingling or numbness Hand Strength R Laser Beam Machine Operator Position 2 (lbs): 53 lbs L Laser Beam Machine Operator Position 2 (lbs): 20 lbs R [...] in squeezes, pinches, and finger add w/ [place] resistant eggs. Pt returned demo -written handout [...] 8-10 reps, hold for 10 sec. 2: [place] Egg: Squeezes, pinches (each finger), and squeezes [...] 50 BEN Diaz/Cathryn, OTD documented in this encounterP[facility]04-05-[facility]22 History of Present illness Narrative* Leigh [...] 20, 2022 10:15 AM documented in this encounterP[facility]03-29-2022 NoteHNO ID: [id number] Author: Laverne Helms OT/Cathryn Service: ? Author [...] radial and palmar abduction 4: Soft sponge beater boss manipulate and belt picker Skilled Intervention: Patient was educated in proper exercise technique and purpose for exercises. Skilled judgment was provided in selection of appropriate interventions. Billing Therapeutic Exercise Treatment Minutes: 40 Laverne Helms OT/[facility] [id number] NoteHNO ID: [id number] Author: Laverne Helms OT/L Service: ? Author Type: Occupational [...] Therapeutic Exercise Treatment Minutes: 45 Laverne Helms OT/[facility] [id number] History of Past illness Narrative * Problem Noted Date Resolved Date Thumb pain, left 12/23/2021 01/08/2023 Hypertensive emergency 12/22/2019 0 Chest pain 11/22/2019 09/19/2020 Overview: History of HTN and history of SVT with normal cath in the past, Recently admitted to OS in October with HTN urgency and neurological evaluation of slurred speech, PAINTING and MS changes. CT/MRI brain showed small [...] creatine- 1.1-1.2) CK/CKMB negative. [facility] O[facility] Echo 10/2019 [...] of this encounter (statuses as of 01/30/2023) [facility] Narrative* Problem Noted Date Resolved Date Thumb pain, left 12/23/2021 01/08/2023 Hypertensive emergency 12/22/2019 0 Chest pain 11/22/2019 09/19/2020 Overview: History of HTN and history of SVT with normal cath in the past, Recently admitted to OSH in October with HTN urgency and neurological evaluation of slurred speech, PAINTING and MS changes. CT/MRI brain showed small [...] 1.1-1.2) CK/CKMB negative. Patient transferred [facility] [place] [facility]. OSH Echo 10/2019 EF [...] of this encounter (statuses as of 02/23/2023) [facility] Narrative* Problem Noted Date Resolved Date Thumb pain, left 12/23/2021 01/08/2023 Hypertensive emergency 12/22/2019 0 Chest pain 11/22/2019 09/19/2020 Overview: History of HTN and history of SVT with normal cath in the past, Recently admitted to OSH in October with HTN urgency and neurological evaluation of slurred speech, PAINTING and MS changes. CT/MRI brain showed small [...] of this encounter (statuses as of 03/24/2023) [facility] Narrative* Problem Noted Date Resolved Date Thumb pain, left 12/23/2021 01/08/2023 Hypertensive emergency 12/22/2019 0 Chest pain 11/22/2019 09/19/2020 Overview: History of HTN and history of SVT with normal cath in the past, Recently admitted to OSH in October with HTN urgency and neurological evaluation of slurred speech, PAINTING and MS changes. CT/MRI brain showed small [...] creatine- 1.1-1.2) CK/CKMB negative. [facility] OSH Echo 10/2019 [...] of this encounter (statuses as of 04/02/2023) [facility] Narrative* Problem Noted Date Resolved Date Thumb pain, left 12/23/2021 01/08/2023 Hypertensive emergency 12/22/2019 0 Chest pain 11/22/2019 09/19/2020 Overview: History of HTN and history of SVT with normal cath in the past, Recently admitted to OSH in October with HTN urgency and neurological evaluation of slurred speech, PAINTING and MS changes. CT/MRI brain showed small [...] 1.1-1.2) CK/CKMB negative. Patient transferred [facility] [place] [facility]. OSH Echo 10/2019 EF [...] of this encounter (statuses as of 04/08/2023) [facility] Narrative* Problem Noted Date Diagnosed Date Resolved Date Thumb pain, left 12/23/2021 01/08/2023 Hypertensive emergency 12/22/201905/02 Chest pain 11/22/2019 09/19/2020 Overview: History of HTN and history of SVT with normal cath in the past, Recently admitted to OSH in October with HTN urgency and neurological evaluation of slurred speech, PAITNING and MS changes. CT/MRI brain showed small [...] creatine- 1.1-1.2) CK/CKMB negative. [facility]. OSH Echo 10/2019 [...] of this encounter (statuses as of 05/04/2023) [facility] Narrative* Problem Noted Date Diagnosed Date Resolved Date Thumb pain, left 12/23/2021 01/08/2023 Hypertensive emergency 12/22/201905/02 Chest pain 11/22/2019 09/19/2020 Overview: History of HTN and history of SVT with normal cath in the past, Recently admitted to OSH in October with HTN urgency and neurological evaluation of slurred speech, PAINTING and MS changes. CT/MRI brain showed small [...] creatine- 1.1-1.2) CK/CKMB negative. [facility]. OSH Echo 10/2019 [...] of this encounter (statuses as of 07/06/2023) [facility] Narrative* Problem Noted Date Diagnosed Date Resolved Date Thumb pain, left 12/23/2021 01/08/2023 Hypertensive emergency 12/22/201905/02 Chest pain 11/22/2019 09/19/2020 Overview: History of HTN and history of SVT with normal cath in the past, Recently admitted to OSH in October with HTN urgency and neurological evaluation of slurred speech, PAINTING and MS changes. CT/MRI brain showed small [...] creatine- 1.1-1.2) CK/CKMB negative. [facility]. OSH Echo 10/2019 [...] of this encounter (statuses as of 07/16/2023) [facility] Narrative* Problem Noted Date Diagnosed Date Resolved Date Thumb pain, left 12/23/2021 01/08/2023 Hypertensive emergency 12/22/201905/02 Chest pain 11/22/2019 09/19/2020 Overview: History of HTN and history of SVT with normal cath in the past, Recently admitted to OSH in October with HTN urgency and neurological evaluation of slurred speech, PAINTING and MS changes. CT/MRI brain showed small [...] creatine- 1.1-1.2) CK/CKMB negative. [facility]. OSH Echo 10/2019 [...] of this encounter (statuses as of 08/05/2023) [facility] Narrative* Problem Noted Date Diagnosed Date Resolved Date Thumb pain, left 12/23/2021 01/08/2023 Hypertensive emergency 12/22/201905/02 Chest pain 11/22/2019 09/19/2020 Overview: History of HTN and history of SVT with normal cath in the past, Recently admitted to OSH in October with HTN urgency and neurological evaluation of slurred speech, PAINTING and MS changes. CT/MRI brain showed small [...] 1.1-1.2) CK/CKMB negative. Patient transferred [facility] [place] [facility]. OSH Echo 10/2019 EF [...] left shoulder 03/01/2019 09/19/2020 Atrophy of gluteus rienaldo muscle 01/17/2019 09/19/2020 Bilateral leg weakness 04/06/201809/19 [...] of this encounter (statuses as of 08/06/2023) [facility] Narrative* Problem Noted Date Diagnosed Date Resolved Date Thumb pain, left 12/23/2021 01/08/2023 Hypertensive emergency 12/22/201905/02 Chest pain 11/22/2019 09/19/2020 Overview: History of HTN and history of SVT with normal cath in the past, Recently admitted to OSH in October with HTN urgency and neurological evaluation of slurred speech, PAINTING and MS changes. CT/MRI brain showed small [...] creatine- 1.1-1.2) CK/CKMB negative. [facility]. OSH Echo 10/2019 [...] of this encounter (statuses as of 08/17/2023) [facility] Narrative* Problem Noted Date Diagnosed Date Resolved Date Thumb pain, left 12/23/2021 01/08/2023 Hypertensive emergency 12/22/201905/02 Chest pain 11/22/2019 09/19/2020 Overview: History of HTN and history of SVT with normal cath in the past, Recently admitted to OSH in October with HTN urgency and neurological evaluation of slurred speech, PAINTING and MS changes. CT/MRI brain showed small [...] creatine- 1.1-1.2) CK/CKMB negative. [facility]. OSH Echo 10/2019 [...] of this encounter (statuses as of 08/18/2023) [facility] Narrative* Problem Noted Date Diagnosed Date Resolved Date Thumb pain, left 12/23/2021 01/08/2023 Hypertensive emergency 12/22/201905/02 Chest pain 11/22/2019 09/19/2020 Overview: History of HTN and history of SVT with normal cath in the past, Recently admitted to OSH in October with HTN urgency and neurological evaluation of slurred speech, PAINTING and MS changes. CT/MRI brain showed small [...] 1.1-1.2) CK/CKMB negative. Patient transferred [facility] [place] [facility]. OSH Echo 10/2019 EF [...] of this encounter (statuses as of 08/20/2023) [facility] Narrative* Problem Noted Date Diagnosed Date Resolved Date Thumb pain, left 12/23/2021 01/08/2023 Hypertensive emergency 12/22/201905/02 Chest pain 11/22/2019 09/19/2020 Overview: History of HTN and history of SVT with normal cath in the past, Recently admitted to [facility] in October with HTN urgency and neurological evaluation of slurred speech, PAINTING and MS changes. CT/MRI brain showed small [...] creatine- 1.1-1.2) CK/CKMB negative. [facility]. OSH Echo 10/2019 [...] of this encounter (statuses as of 08/20/2023) [facility] Narrative* Problem Noted Date Diagnosed Date Resolved Date Thumb pain, left 12/23/2021 01/08/2023 Hypertensive emergency 12/22/201905/02 Chest pain 11/22/2019 09/19/2020 Overview: History of HTN and history of SVT with normal cath in the past, Recently admitted to OSH in October with HTN urgency and neurological evaluation of slurred speech, PAINTING and MS changes. CT/MRI brain showed small [...] creatine- 1.1-1.2) CK/CKMB negative. [facility]. OSH Echo 10/2019 [...] of this encounter (statuses as of 08/20/2023) [facility] Narrative* Problem Noted Date Diagnosed Date Resolved Date Thumb pain, left 12/23/2021 01/08/2023 Hypertensive emergency 12/22/201905/02 Chest pain 11/22/2019 09/19/2020 Overview: History of HTN and history of SVT with normal cath in the past, Recently admitted to OSH in October with HTN urgency and neurological evaluation of slurred speech, PAINTING and MS changes. CT/MRI brain showed small [...] creatine- 1.1-1.2) CK/CKMB negative. [facility]. OSH Echo 10/2019 [...] of this encounter (statuses as of 08/20/2023) [facility] Narrative* Problem Noted Date Diagnosed Date Resolved Date Thumb pain, left 12/23/2021 01/08/2023 Hypertensive emergency 12/22/201905/02 Chest pain 11/22/2019 09/19/2020 Overview: History of HTN and history of SVT with normal cath in the past, Recently admitted to OSH in October with HTN urgency and neurological evaluation of slurred speech, PAINTING and MS changes. CT/MRI brain showed small [...] creatine- 1.1-1.2) CK/CKMB negative. [facility]. OSH Echo 10/2019 [...] of this encounter (statuses as of 08/20/2023) [facility] Narrative* Problem Noted Date Diagnosed Date Resolved Date Thumb pain, left 12/23/2021 01/08/2023 Hypertensive emergency 12/22/201905/02 Chest pain 11/22/2019 09/19/2020 Overview: History of HTN and history of SVT with normal cath in the past, Recently admitted to OSH in October with HTN urgency and neurological evaluation of slurred speech, PAINTING and MS changes. CT/MRI brain showed small [...] 1.1-1.2) CK/CKMB negative. Patient transferred [facility] [place] [facility]. OSH Echo 10/2019 EF [...] of this encounter (statuses as of 08/22/2023) [facility] Narrative* Problem Noted Date Diagnosed Date Resolved Date Thumb pain, left 12/23/2021 01/08/2023 Hypertensive emergency 12/22/201905/02 Chest pain 11/22/2019 09/19/2020 Overview: History of HTN and history of SVT with normal cath in the past, Recently admitted to [facility] in October with HTN urgency and neurological evaluation of slurred speech, PAINTING and MS changes. CT/MRI brain showed small [...] creatine- 1.1-1.2) CK/CKMB negative. [facility]. OSH Echo 10/2019 [...] of this encounter (statuses as of 08/31/2023) [facility] Narrative* Problem Noted Date Diagnosed Date Resolved Date Thumb pain, left 12/23/2021 01/08/2023 Hypertensive emergency 12/22/201905/02 Chest pain 11/22/2019 09/19/2020 Overview: History of HTN and history of SVT with normal cath in the past, Recently admitted to OSH in October with HTN urgency and neurological evaluation of slurred speech, PAINTING and MS changes. CT/MRI brain showed small [...] creatine- 1.1-1.2) CK/CKMB negative. [facility]. OSH Echo 10/2019 [...] of this encounter (statuses as of 09/02/2023) [facility] Narr[facility]* Problem Noted Date Diagnosed Date Resolved Date Thumb pain, left 12/23/2021 01/08/2023 Hypertensive emergency 12/22/201905/02 Chest pain 11/22/2019 09/19/2020 Overview: History of HTN and history of SVT with normal cath in the past, Recently admitted to OSH in October with HTN urgency and neurological evaluation of slurred speech, PAINTING and MS changes. CT/MRI brain showed small [...] creatine- 1.1-1.2) CK/CKMB negative. [facility] OSH Echo 10/2019 [...] of this encounter (statuses as of 09/08/2023) [facility] Narr[facility]* Problem Noted Date Diagnosed Date Resolved Date Thumb pain, left 12/23/2021 01/08/2023 Hypertensive emergency 12/22/201905/02 Chest pain 11/22/2019 09/19/2020 Overview: History of HTN and history of SVT with normal cath in the past, Recently admitted to OSH in October with HTN urgency and neurological evaluation of slurred speech, PAINTING and MS changes. CT/MRI brain showed small [...] creatine- 1.1-1.2) CK/CKMB negative. Patient transferred [facility]. OSH Echo 10/2019 [...] of this encounter (statuses as of 09/10/2023) [facility] Narrative* Problem Noted Date Diagnosed Date Resolved Date Thumb pain, left 12/23/2021 01/08/2023 Hypertensive emergency 12/22/201905/02 Chest pain 11/22/2019 09/19/2020 Overview: History of HTN and history of SVT with normal cath in the past, Recently admitted to OSH in October with HTN urgency and neurological evaluation of slurred speech, PAINTING and MS changes. CT/MRI brain showed small [...] creatine- 1.1-1.2) CK/CKMB negative. Patient transferred [facility]. OSH Echo 10/2019 [...] of this encounter (statuses as of 09/21/2023) [facility] N[facility]* Problem Noted Date Diagnosed Date Resolved Date Thumb pain, left 12/23/2021 01/08/2023 Hypertensive emergency 12/22/201905/02 Chest pain 11/22/2019 09/19/2020 Overview: History of HTN and history of SVT with normal cath in the past, Recently admitted to OSH in October with HTN urgency and neurological evaluation of slurred speech, PAINTING and MS changes. CT/MRI brain showed small [...] creatine- 1.1-1.2) CK/CKMB negative. [facility] transferred [facility]. OSH Echo 10/2019 [...] of this encounter (statuses as of 10/01/2023) [facility] N[facility]* Problem Noted Date Diagnosed Date Resolved Date Thumb pain, left 12/23/2021 01/08/2023 Hypertensive emergency 12/22/201905/02 Chest pain 11/22/2019 09/19/2020 Overview: History of HTN and history of SVT with normal cath in the past, Recently admitted to OSH in October with HTN urgency and neurological evaluation of slurred speech, PAINTING and MS changes. CT/MRI brain showed small [...] creatine- 1.1-1.2) CK/CKMB negative. Patient transferred [facility]. OSH Echo 10/2019 [...] of this encounter (statuses as of 10/08/2023) [facility] N[facility]* Problem Noted Date Diagnosed Date Resolved Date Thumb pain, left 12/23/2021 01/08/2023 Hypertensive emergency 12/22/201905/02 Chest pain 11/22/2019 09/19/2020 Overview: History of HTN and history of SVT with normal cath in the past, Recently admitted to OSH in October with HTN urgency and neurological evaluation of slurred speech, PAINTING and MS changes. CT/MRI brain showed small [...] of this encounter (statuses as of 12/20/2023) [facility]* Problem Noted Date Diagnosed Date Resolved Date Thumb pain, left 12/23/2021 01/08/2023 Hypertensive emergency 12/22/201905/02 Chest pain 11/22/2019 09/19/2020 Overview: History of HTN and history of SVT with normal cath in the past, Recently admitted to OSH in October with HTN urgency and neurological evaluation of slurred speech, PAINTING and MS changes. CT/MRI brain showed small [...] creatine- 1.1-1.2) CK/CKMB negative. [facility] transferred [facility] OSH Echo 10/2019 [...] of this encounter (statuses as of 12/31/2023) [facility] N[facility]* Problem Noted Date Diagnosed Date Resolved Date Thumb pain, left 12/23/2021 01/08/2023 Hypertensive emergency 12/22/201905/02 Chest pain 11/22/2019 09/19/2020 Overview: History of HTN and history of SVT with normal cath in the past, Recently admitted to OSH in October with HTN urgency and neurological evaluation of slurred speech, PAINTING and MS changes. CT/MRI brain showed small [...] creatine- 1.1-1.2) CK/CKMB negative. [facility] transferred [facility]. OSH Echo 10/2019 [...] of this encounter (statuses as of 12/31/2023) [facility] N[facility]* Problem Noted Date Diagnosed Date Resolved Date Thumb pain, left 12/23/2021 01/08/2023 Hypertensive emergency 12/22/201905/02 Chest pain 11/22/2019 09/19/2020 Overview: History of HTN and history of SVT with normal cath in the past, Recently admitted to OSH in October with HTN urgency and neurological evaluation of slurred speech, PAINTING and MS changes. CT/MRI brain showed small [...] creatine- 1.1-1.2) CK/CKMB negative. [facility] OSH Echo 10/2019 [...] of this encounter (statuses as of 01/05/2024) [facility] Narrative* Problem Noted Date Diagnosed Date Resolved Date Thumb pain, left 12/23/2021 01/08/2023 Hypertensive emergency 12/22/201905/02 Chest pain 11/22/2019 09/19/2020 Overview: History of HTN and history of SVT with normal cath in the past, Recently admitted to OSH in October with HTN urgency and neurological evaluation of slurred speech, PAINTING and MS changes. CT/MRI brain showed small [...] creatine- 1.1-1.2) CK/CKMB negative. Patient transferred [facility]. OSH Echo 10/2019 [...] of this encounter (statuses as of 01/10/2024) [facility]03-08-2022 History of Past illness Narrative* Problem Noted Date Diagnosed Date Resolved Date Thumb pain, left 12/23/2021 01/08/2023 Hypertensive emergency 12/22/201905/02 Chest pain 11/22/2019 09/19/2020 Overview: History of HTN and history of SVT with normal cath in the past, Recently admitted to OSH in October with HTN urgency and neurological evaluation of slurred speech, PAINTING and MS changes. CT/MRI brain showed small [...] creatine- 1.1-1.2) CK/CKMB negative. Patient transferred to [facility] evaluation. OSH Echo 10/2019 [...] of this encounter (statuses as of 01/12/2024) [facility]03-[facility]22 History of Past illness Narrative* Problem Noted Date Diagnosed Date Resolved Date Thumb pain, left 12/23/2021 01/08/2023 Hypertensive emergency 12/22/201905/02 Chest pain 11/22/2019 09/19/2020 Overview: History of HTN and history of SVT with normal cath in the past, Recently admitted to OSH in October with HTN urgency and neurological evaluation of slurred speech, PAINTING and MS changes. CT/MRI brain showed small [...] creatine- 1.1-1.2) CK/CKMB negative. Patient transferred to [facility] evaluation. OSH Echo 10/2019 [...] of this encounter (statuses as of 01/18/2024) [facility] History of Past illness Narrative* Problem Noted Date Diagnosed Date Resolved Date Thumb pain, left 12/23/2021 01/08/2023 Hypertensive emergency 12/22/201905/02 Chest pain 11/22/2019 09/19/2020 Overview: History of HTN and history of SVT with normal cath in the past, Recently admitted to OSH in October with HTN urgency and neurological evaluation of slurred speech, PAINTING and MS changes. CT/MRI brain showed small [...] of this encounter (statuses as of 01/29/2024) [facility]11-[facility]21 History of Present illness Narrative* Shavon Worrell, RT(R) - 08/18/2021 11:30 AM EDT Radiology [...] 18, 2021 11:51 AM [facility] of Present illness Narrative* Rahul [...] 24, 2020 1:12 PM [facility] of Present illness Narrative* July [...] 30, 2020 12:14 PM [facility] of Past illness Narrative* Problem Noted Date Resolved Date Hypertensive emergency 12/22/2019 0 Chest pain 11/22/2019 09/19/2020 Overview: History of HTN and history of SVT with normal cath in the past, Recently admitted to OSH in October with HTN urgency and neurological evaluation of slurred speech, PAINTING and MS changes. CT/MRI brain showed small [...] creatine- 1.1-1.2) CK/CKMB negative. Patient transferred [facility]. OSH Echo 10/2019 [...] of this encounter (statuses as of 01/20/2022) [facility] History of Past illness Narrative* Problem Noted Date Resolved Date Hypertensive emergency 12/22/2019 0 Chest pain 11/22/2019 09/19/2020 Overview: History of HTN and history of SVT with normal cath in the past, Recently admitted to OSH in October with HTN urgency and neurological evaluation of slurred speech, PAINTING and MS changes. CT/MRI brain showed small [...] creatine- 1.1-1.2) CK/CKMB negative. Patient transferred to [facility] evaluation. OSH Echo 10/2019 [...] of this encounter (statuses as of 01/20/2022) [facility] History of Past illness Narrative* Problem Noted Date Resolved Date Hypertensive emergency 12/22/2019 0 Chest pain 11/22/2019 09/19/2020 Overview: History of HTN and history of SVT with normal cath in the past, Recently admitted to OS in October with HTN urgency and neurological evaluation of slurred speech, PAINTING and MS changes. CT/MRI brain showed small [...] creatine- 1.1-1.2) CK/CKMB negative. Patient transferred to [facility] evaluation. OSH Echo 10/2019 [...] of this encounter (statuses as of 01/27/2022) [facility] History of Past illness Narrative* Problem Noted Date Resolved Date Hypertensive emergency 12/22/2019 0 Chest pain 11/22/2019 09/19/2020 Overview: History of HTN and history of SVT with normal cath in the past, Recently admitted to OSH in October with HTN urgency and neurological evaluation of slurred speech, PAINTING and MS changes. CT/MRI brain showed small [...] creatine- 1.1-1.2) CK/CKMB negative. Patient transferred to [facility] evaluation. OSH Echo 10/2019 [...] of this encounter (statuses as of 02/04/2022) [facility] History of Past illness Narrative* Problem Noted Date Resolved Date Hypertensive emergency 12/22/2019 0 Chest pain 11/22/2019 09/19/2020 Overview: History of HTN and history of SVT with normal cath in the past, Recently admitted to OSH in October with HTN urgency and neurological evaluation of slurred speech, PAINTING and MS changes. CT/MRI brain showed small [...] creatine- 1.1-1.2) CK/CKMB negative. Patient transferred to [facility] evaluation. OSH Echo 10/2019 [...] of this encounter (statuses as of 02/10/2022) [facility] History of Past illness Narrative* Problem Noted Date Resolved Date Hypertensive emergency 12/22/2019 0 Chest pain 11/22/2019 09/19/2020 Overview: History of HTN and history of SVT with normal cath in the past, Recently admitted to OSH in October with HTN urgency and neurological evaluation of slurred speech, PAINTING and MS changes. CT/MRI brain showed small [...] 1.1-1.2) CK/CKMB negative. Patient transferred [facility]. OSH Echo 10/2019 EF [...] of this encounter (statuses as of 02/17/2022) [facility] History of Past illness Narrative* Problem Noted Date Resolved Date Hypertensive emergency 12/22/2019 0 Chest pain 11/22/2019 09/19/2020 Overview: History of HTN and history of SVT with normal cath in the past, Recently admitted to OSH in October with HTN urgency and neurological evaluation of slurred speech, PAINTING and MS changes. CT/MRI brain showed small [...] creatine- 1.1-1.2) CK/CKMB negative. Patient transferred to [facility] evaluation. OSH Echo 10/2019 [...] of this encounter (statuses as of 02/19/2022) [facility] History of Past illness Narrative* Problem Noted Date Resolved Date Hypertensive emergency 12/22/2019 0 Chest pain 11/22/2019 09/19/2020 Overview: History of HTN and history of SVT with normal cath in the past, Recently admitted to OSH in October with HTN urgency and neurological evaluation of slurred speech, PAINTING and MS changes. CT/MRI brain showed small [...] creatine- 1.1-1.2) CK/CKMB negative. Patient transferred to [facility] for further evaluation. OSH Echo 10/2019 [...] of this encounter (statuses as of 03/24/2022) [facility] History of Past illness Narrative* Problem Noted Date Resolved Date Hypertensive emergency 12/22/2019 0 Chest pain 11/22/2019 09/19/2020 Overview: History of HTN and history of SVT with normal cath in the past, Recently admitted to OSH in October with HTN urgency and neurological evaluation of slurred speech, PAINTING and MS changes. CT/MRI brain showed small [...] creatine- 1.1-1.2) CK/CKMB negative. Patient transferred to [facility] for further evaluation. OSH Echo 10/2019 [...] of this encounter (statuses as of 04/14/2022) [facility] History of Past illness Narrative* Problem Noted Date Resolved Date Hypertensive emergency 12/22/2019 0 Chest pain 11/22/2019 09/19/2020 Overview: History of HTN and history of SVT with normal cath in the past, Recently admitted to OSH in October with HTN urgency and neurological evaluation of slurred speech, PAINTING and MS changes. CT/MRI brain showed small [...] creatine- 1.1-1.2) CK/CKMB negative. Patient transferred to [facility] evaluation. OSH Echo 10/2019 [...] of this encounter (statuses as of 04/17/2022) [facility] History of Past illness Narrative* Problem Noted Date Resolved Date Hypertensive emergency 12/22/2019 0 Chest pain 11/22/2019 09/19/2020 Overview: History of HTN and history of SVT with normal cath in the past, Recently admitted to OSH in October with HTN urgency and neurological evaluation of slurred speech, PAINTING and MS changes. CT/MRI brain showed small [...] of this encounter (statuses as of 05/14/2022) [facility] History of Past illness Narrative* Problem Noted Date Resolved Date Hypertensive emergency 12/22/2019 0 Chest pain 11/22/2019 09/19/2020 Overview: History of HTN and history of SVT with normal cath in the past, Recently admitted to OSH in October with HTN urgency and neurological evaluation of slurred speech, PAINTING and MS changes. CT/MRI brain showed small [...] creatine- 1.1-1.2) CK/CKMB negative. Patient transferred to [facility] evaluation. OSH Echo 10/2019 [...] of this encounter (statuses as of 05/18/2022) [facility] History of Past illness Narrative* Problem Noted Date Resolved Date Hypertensive emergency 12/22/2019 0 Chest pain 11/22/2019 09/19/2020 Overview: History of HTN and history of SVT with normal cath in the past, Recently admitted to OSH in October with HTN urgency and neurological evaluation of slurred speech, PAINTING and MS changes. CT/MRI brain showed small [...] creatine- 1.1-1.2) CK/CKMB negative. Patient transferred to [facility] evaluation. OSH Echo 10/2019 [...] of this encounter (statuses as of 2022) [facility] History of Past illness Narrative* Problem Noted Date Resolved Date Hypertensive emergency 12/22/2019 0 Chest pain 11/22/2019 09/19/2020 Overview: History of HTN and history of SVT with normal cath in the past, Recently admitted to OSH in October with HTN urgency and neurological evaluation of slurred speech, PAINTING and MS changes. CT/MRI brain showed small [...] creatine- 1.1-1.2) CK/CKMB negative. Patient transferred to [facility] for further evaluation. OSH Echo 10/2019 [...] of this encounter (statuses as of 06/01/2022) [facility] History of Past illness Narrative* Problem Noted Date Resolved Date Hypertensive emergency 12/22/2019 0 Chest pain 11/22/2019 09/19/2020 Overview: History of HTN and history of SVT with normal cath in the past, Recently admitted to OSH in October with HTN urgency and neurological evaluation of slurred speech, PAINTING and MS changes. CT/MRI brain showed small [...] creatine- 1.1-1.2) CK/CKMB negative. Patient transferred to [facility] for [facility] evaluation. OSH Echo 10/2019 [...] of this encounter (statuses as of 07/16/2022) [facility] History of Past illness Narrative* Problem Noted Date Resolved Date Hypertensive emergency 12/22/2019 0 Chest pain 11/22/2019 09/19/2020 Overview: History of HTN and history of SVT with normal cath in the past, Recently admitted to OSH in October with HTN urgency and neurological evaluation of slurred speech, PAINTING and MS changes. CT/MRI brain showed small [...] creatine- 1.1-1.2) CK/CKMB negative. Patient transferred to [facility] for [facility] evaluation. OSH Echo 10/2019 [...] of this encounter (statuses as of 07/22/2022) [facility] History of Past illness Narrative* Problem Noted Date Resolved Date Hypertensive emergency 12/22/2019 0 Chest pain 11/22/2019 09/19/2020 Overview: History of HTN and history of SVT with normal cath in the past, Recently admitted to OSH in October with HTN urgency and neurological evaluation of slurred speech, PAINTING and MS changes. CT/MRI brain showed small [...] creatine- 1.1-1.2) CK/CKMB negative. Patient transferred to [facility] evaluation. OSH Echo 10/2019 [...] of this encounter (statuses as of 08/06/2022) [facility] History of Past illness Narrative* Problem Noted Date Resolved Date Hypertensive emergency 12/22/2019 0 Chest pain 11/22/2019 09/19/2020 Overview: History of HTN and history of SVT with normal cath in the past, Recently admitted to OSH in October with HTN urgency and neurological evaluation of slurred speech, PAINTING and MS changes. CT/MRI brain showed small [...] 1.1-1.2) CK/CKMB negative. Patient transferred [facility] [facility] further [facility]. OSH Echo 10/2019 EF [...] of this encounter (statuses as of 08/08/2022) [facility] History of Past illness Narrative* Problem Noted Date Resolved Date Hypertensive emergency 12/22/2019 0 Chest pain 11/22/2019 09/19/2020 Overview: History of HTN and history of SVT with normal cath in the past, Recently admitted to OSH in October with HTN urgency and neurological evaluation of slurred speech, PAINTING and MS changes. CT/MRI brain showed small [...] 1.1-1.2) CK/CKMB negative. Patient transferred [facility] [facility] further [facility]. OSH Echo 10/2019 EF [...] of this encounter (statuses as of 09/02/2022) [facility] History of Past illness Narrative* Problem Noted Date Resolved Date Hypertensive emergency 12/22/2019 0 Chest pain 11/22/2019 09/19/2020 Overview: History of HTN and history of SVT with normal cath in the past, Recently admitted to OSH in October with HTN urgency and neurological evaluation of slurred speech, PAINTING and MS changes. CT/MRI brain showed small [...] creatine- 1.1-1.2) CK/CKMB negative. Patient transferred to [facility] for further evaluation. OSH Echo 10/2019 [...] of this encounter (statuses as of 09/11/2022) [facility] History of Past illness Narrative* Problem Noted Date Resolved Date Hypertensive emergency 12/22/2019 0 Chest pain 11/22/2019 09/19/2020 Overview: History of HTN and history of SVT with normal cath in the past, Recently admitted to OSH in October with HTN urgency and neurological evaluation of slurred speech, PAINTING and MS changes. CT/MRI brain showed small [...] creatine- 1.1-1.2) CK/CKMB negative. Patient transferred to [facility] for further evaluation. OSH Echo 10/2019 [...] of this encounter (statuses as of 09/14/2022) [facility] History of Past illness Narrative* Problem Noted Date Resolved Date Hypertensive emergency 12/22/2019 0 Chest pain 11/22/2019 09/19/2020 Overview: History of HTN and history of SVT with normal cath in the past, Recently admitted to OSH in October with HTN urgency and neurological evaluation of slurred speech, PAINTING and MS changes. CT/MRI brain showed small [...] creatine- 1.1-1.2) CK/CKMB negative. Patient transferred to [facility] for further evaluation. OSH Echo 10/2019 [...] of this encounter (statuses as of 10/01/2022) [facility] History of Past illness Narrative* Problem Noted Date Resolved Date Hypertensive emergency 12/22/2019 0 Chest pain 11/22/2019 09/19/2020 Overview: History of HTN and history of SVT with normal cath in the past, Recently admitted to OSH in October with HTN urgency and neurological evaluation of slurred speech, PAINTING and MS changes. CT/MRI brain showed small [...] creatine- 1.1-1.2) CK/CKMB negative. Patient transferred to [facility] for further evaluation. OSH Echo 10/2019 [...] left shoulder 03/01/2019 09/19/2020 Atrophy of gluteus rienaldo muscle 01/17/2019 09/19/2020 Bilateral leg weakness 04/06/2018 [...] of this encounter (statuses as of 10/01/2022) [facility] History of Past illness Narrative* Problem Noted Date Resolved Date Hypertensive emergency 12/22/2019 0 Chest pain 11/22/2019 09/19/2020 Overview: History of HTN and history of SVT with normal cath in the past, Recently admitted to OSH in October with HTN urgency and neurological evaluation of slurred speech, PAINTING and MS changes. CT/MRI brain showed small [...] creatine- 1.1-1.2) CK/CKMB negative. Patient transferred to [facility] for further evaluation. OSH Echo 10/2019 [...] of this encounter (statuses as of 10/06/2022) [facility] History of Past illness Narrative* Problem Noted Date Resolved Date Hypertensive emergency 12/22/2019 0 Chest pain 11/22/2019 09/19/2020 Overview: History of HTN and history of SVT with normal cath in the past, Recently admitted to OSH in October with HTN urgency and neurological evaluation of slurred speech, PAINTING and MS changes. CT/MRI brain showed small [...] creatine- 1.1-1.2) CK/CKMB negative. Patient transferred to [facility] for further evaluation. OSH Echo 10/2019 [...] of this encounter (statuses as of 10/11/2022) [facility] History of Past illness Narrative* Problem Noted Date Resolved Date Hypertensive emergency 12/22/2019 0 Chest pain 11/22/2019 09/19/2020 Overview: History of HTN and history of SVT with normal cath in the past, Recently admitted to OSH in October with HTN urgency and neurological evaluation of slurred speech, PAINTING and MS changes. CT/MRI brain showed small [...] creatine- 1.1-1.2) CK/CKMB negative. Patient transferred to [facility] evaluation. OSH Echo 10/2019 [...] of this encounter (statuses as of 10/29/2022) [facility] History of Past illness Narrative* Problem Noted Date Resolved Date Hypertensive emergency 12/22/2019 0 Chest pain 11/22/2019 09/19/2020 Overview: History of HTN and history of SVT with normal cath in the past, Recently admitted to OSH in October with HTN urgency and neurological evaluation of slurred speech, PAINTING and MS changes. CT/MRI brain showed small [...] creatine- 1.1-1.2) CK/CKMB negative. Patient transferred to [facility] for further evaluation. OSH Echo 10/2019 [...] of this encounter (statuses as of 11/20/2022) [facility] History of Past illness Narrative* Problem Noted Date Resolved Date Hypertensive emergency 12/22/2019 0 Chest pain 11/22/2019 09/19/2020 Overview: History of HTN and history of SVT with normal cath in the past, Recently admitted to OSH in October with HTN urgency and neurological evaluation of slurred speech, PAINTING and MS changes. CT/MRI brain showed small [...] 1.1-1.2) CK/CKMB negative. Patient transferred [facility] [facility]. OSH Echo 10/2019 EF [...] of this encounter (statuses as of 11/24/2022) [facility] History of Past illness Narrative* Problem Noted Date Resolved Date Hypertensive emergency 12/22/2019 0 Chest pain 11/22/2019 09/19/2020 Overview: History of HTN and history of SVT with normal cath in the past, Recently admitted to OSH in October with HTN urgency and neurological evaluation of slurred speech, PAINTING and MS changes. CT/MRI brain showed small [...] creatine- 1.1-1.2) CK/CKMB negative. Patient transferred to [facility] evaluation. OSH Echo 10/2019 [...] of this encounter (statuses as of 01/06/2023) [facility] History of Past illness Narrative* Problem Noted Date Resolved Date Hypertensive emergency 12/22/2019 0 Chest pain 11/22/2019 09/19/2020 Overview: History of HTN and history of SVT with normal cath in the past, Recently admitted to OSH in October with HTN urgency and neurological evaluation of slurred speech, PAINTING and MS changes. CT/MRI brain showed small [...] creatine- 1.1-1.2) CK/CKMB negative. Patient transferred to [facility]. OSH Echo 10/2019 [...] of this encounter (statuses as of 01/08/2023) [facility] Thumb [facility], left- Primary Primary osteoarthritis of first carpometacarpal joint of left hand Primary localized osteoarthrosis, hand [facility] Primary osteoarthritis of first carpometacarpal joint of left hand- Primary Primary localized osteoarthrosis, [facility] Thumb [facility], left- Primary NO SHOW [facility] Thumb pain, left- Primary Primary osteoarthritis of first carpometacarpal joint of left hand Primary localized osteoarthrosis, hand [facility] Thumb pain, left- Primary Primary osteoarthritis of first carpometacarpal joint of left hand Primary localized osteoarthrosis, hand [facility] Primary osteoarthritis of first carpometacarpal joint of left hand- Primary Primary localized osteoarthrosis, hand [facility] Primary osteoarthritis of first carpometacarpal joint of left hand- Primary Primary localized osteoarthrosis, hand [facility] Anemia, unspecified type- Primary 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 disease, or chronic kidney disease (HCC) Unspecified hypertensive heart and kidney disease with heart failure and with chronic kidney disease stage I through stage IV, or unspecified Hypothyroidism, unspecified type [facility] Diagnosis Anemia due to stage 3b chronic kidney disease (HCC)- Primary Anemia, unspecified type [facility] Diagnosis Telogen effluvium- Primary Seborrheic dermatitis Seborrheic dermatitis, unspecified Encounter for medication monitoring Encounter for therapeutic drug monitoring Verruca vulgaris Viral warts, unspecified Hypothyroidism, unspecified type [facility] Diagnosis Chronic heart failure with preserved [...] Unspecified essential hypertension [facility] Diagnosis Chronic heart failure with preserved ejection fraction (HFpEF) (HCC)- Primary [facility] Diagnosis White coat syndrome with hypertension- Primary [facility] Diagnosis Encounter for immunization- Primary Need [...] IV, or unspecified [facility] Diagnosis Telogen effluvium- Primary [facility] Diagnosis Chronic heart failure with preserved ejection fraction (HFpEF) (HCC)- Primary Essential hypertension Unspecified essential hypertension [facility] Diagnosis Anemia due to stage 3b chronic kidney disease (HCC)- Primary [facility] Diagnosis Anemia due to stage 3b chronic kidney disease (HCC)- Primary [facility] Diagnosis Anemia due to stage 3b chronic kidney disease (HCC)- [facility] Pain with urination- Primary Renal colic [facility] Diagnosis Chronic heart failure with preserved ejection fraction (HCC)- Primary [facility] Diagnosis Trigger thumb of left hand- Primary Trigger finger (acquired) [facility] Diagnosis Fibrocystic breast changes of both breasts- Primary Dense breast Inconclusive mammogram Personal history of breast cancer Personal history of malignant neoplasm of breast Encounter for screening [facility] Diagnosis Difficulty swallowing pills- Primary Other symptoms involving digestive system Pharyngitis, unspecified etiology [facility] Diagnosis Chronic back pain, unspecified back location, unspecified back pain laterality- Primary [facility] Diagnosis Rib pain on right side- Primary Chest pain, unspecified Epigastric abdominal tenderness without rebound tenderness Thoracogenic scoliosis, unspecified spinal region [facility] Diagnosis Palpitation- Primary Palpitations [facility] Diagnosis Acute right-sided thoracic back pain- Primary [facility] Diagnosis Medicare annual wellness visit, subsequent- Primary Routine general medical examination at a health care facility Asymptomatic postmenopausal state Thoracogenic scoliosis, unspecified spinal region Chronic thoracic back pain, unspecified back pain laterality Decreased hearing of both ears Anemia due to stage 3b chronic kidney disease (HCC) Epigastric pain Abdominal pain, epigastric Hypothyroidism, unspecified type [facility] Diagnosis Asymptomatic postmenopausal state Medicare annual wellness visit, subsequent Routine general medical examination at a health care facility [facility] Diagnosis 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 Degenerative scoliosis in adult patient Chronic thoracic back pain, unspecified back pain laterality [facility] Diagnosis Sensorineural hearing loss, bilateral- Primary [facility] Diagnosis Telogen effluvium [facility] Diagnosis Acute right-sided thoracic back pain [facility] Diagnosis Epigastric abdominal tenderness without rebound tenderness [facility] Diagnosis Medicare annual wellness visit, subsequent Routine general medical examination at a health care facility Epigastric pain Abdominal pain, epigastric [facility] Diagnosis Urinary retention [facility]ention of urine, unspecified [facility] Exertional dyspnea Other dyspnea and respiratory abnormality [facility] Diagnosis Chronic thoracic back pain, unspecified back pain laterality- Primary 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 [facility] Diagnosis Chronic diastolic (congestive) heart failure (HCC)- Primary [facility] Diagnosis Chronic thoracic back pain, unspecified back pain laterality- Primary Degenerative scoliosis in adult patient 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 [facility] Diagnosis Essential hypertension Unspecified essential hypertension [facility]No assessment information availableWC[facility] Work Phone: Evaluation note* Diagnosis Personal history of malignant neoplasm of breast- Primary Encounter for screening mammogram for malignant neoplasm of breast Other screening mammogram [facility] Diagnosis Encounter for screening mammogram for breast cancer- Primary [facility] Diagnosis Essential hypertension Unspecified essential hypertension [facility] Diagnosis Situational depression- Primary Adjustment disorder with depressed mood [facility] Diagnosis Abnormal mammogram- Primary Abnormal mammogram, unspecified Fibrocystic breast changes of both breasts Dense breast Inconclusive mammogram Personal history of breast cancer Personal history of malignant neoplasm of breast [facility] Diagnosis 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 Collagenous colitis Other and unspecified noninfectious gastroenteritis and colitis [facility] Diagnosis Essential hypertension Unspecified essential hypertension [facility] Diagnosis Situational depression- Primary Adjustment disorder [...] disease (HCC) (HCC) [facility] Diagnosis Chronic diastolic (congestive) heart failure (HCC)- Primary [facility] Diagnosis Hypothyroidism, unspecified type [facility] Diagnosis Essential hypertension- Primary Unspecified essential hypertension Atherosclerosis of [place] coronary artery of [place] heart without angina pectoris Changes in vascular [...] diastolic (congestive) heart failure (HCC) Atherosclerosis of [place] coronary artery of [place] heart without angina pectoris Essential hypertension Unspecified [...] chronic kidney disease (HCC) (HCC) Atherosclerosis of [place] coronary artery of [place] heart without angina pectoris Exertional dyspnea Other [...] arm and forearm [facility] Essential hypertension- Primary Unspecified essential hypertension Atherosclerosis of [place] coronary artery of [place] heart without angina pectoris Changes in vascular [...] diastolic (congestive) heart failure (HCC) Atherosclerosis of [place] coronary artery of [place] heart without angina pectoris Essential hypertension Unspecified [...] chronic kidney disease (HCC) (HCC) Atherosclerosis of [place] coronary artery of [place] heart without angina pectoris Exertional dyspnea Other [...] mood Dysuria- Primary [facility] Diagnosis Essential hypertension- Primary Unspecified essential hypertension Atherosclerosis of [place] coronary artery of [place] heart without angina pectoris Changes in vascular [...] diastolic (congestive) heart failure (HCC) Atherosclerosis of [place] coronary artery of [place] heart without angina pectoris Essential hypertension Unspecified [...] chronic kidney disease (HCC) (HCC) Atherosclerosis of [place] coronary artery of [place] heart without angina pectoris Exertional dyspnea Other [...] Urinary frequency- Primary [facility] Diagnosis Essential hypertension- Primary Unspecified essential hypertension Atherosclerosis of [place] coronary artery of [place] heart without angina pectoris Changes in vascular [...] diastolic (congestive) heart failure (HCC) Atherosclerosis of [place] coronary artery of [place] heart without angina pectoris Essential hypertension Unspecified [...] chronic kidney disease (HCC) (HCC) Atherosclerosis of [place] coronary artery of [place] heart without angina pectoris Exertional dyspnea Other [...] for breast cancer [facility] Diagnosis Essential hypertension- Primary Unspecified essential hypertension Atherosclerosis of [place] coronary artery of [place] heart without angina pectoris Changes in vascular [...] diastolic (congestive) heart failure (HCC) Atherosclerosis of [place] coronary artery of [place] heart without angina pectoris Essential hypertension Unspecified [...] chronic kidney disease (HCC) (HCC) Atherosclerosis of [place] coronary artery of [place] heart without angina pectoris Exertional dyspnea Other [...] hematuria Acute cystitis [facility] Diagnosis Essential hypertension- Primary Unspecified essential hypertension Atherosclerosis of [place] coronary artery of [place] heart without angina pectoris Changes in vascular [...] diastolic (congestive) heart failure (HCC) Atherosclerosis of [place] coronary artery of [place] heart without angina pectoris Essential hypertension Unspecified [...] chronic kidney disease (HCC) (HCC) Atherosclerosis of [place] coronary artery of [place] heart without angina pectoris Exertional dyspnea Other [...] with depressed mood [facility] Diagnosis Essential hypertension- Primary Unspecified essential hypertension Atherosclerosis of [place] coronary artery of [place] heart without angina pectoris Changes in vascular [...] diastolic (congestive) heart failure (HCC) Atherosclerosis of [place] coronary artery of [place] heart without angina pectoris Essential hypertension Unspecified [...] chronic kidney disease (HCC) (HCC) Atherosclerosis of [place] coronary artery of [place] heart without angina pectoris Exertional dyspnea Other [...] IV, or unspecified [facility] Diagnosis Essential hypertension- Primary Unspecified essential hypertension Atherosclerosis of [place] coronary artery of [place] heart without angina pectoris Changes in vascular [...] diastolic (congestive) heart failure (HCC) Atherosclerosis of [place] coronary artery of [place] heart without angina pectoris Essential hypertension Unspecified [...] chronic kidney disease (HCC) (HCC) Atherosclerosis of [place] coronary artery of [place] heart without angina pectoris Exertional dyspnea Other [...] and respiratory abnormality [facility] Diagnosis Essential hypertension- Primary Unspecified essential hypertension Atherosclerosis of [place] coronary artery of [place] heart without angina pectoris Changes in vascular [...] diastolic (congestive) heart failure (HCC) Atherosclerosis of [place] coronary artery of [place] heart without angina pectoris Essential hypertension Unspecified [...] chronic kidney disease (HCC) (HCC) Atherosclerosis of [place] coronary artery of [place] heart without angina pectoris Exertional dyspnea Other [...] of urination- Primary [facility] Diagnosis Essential hypertension- Primary Unspecified essential hypertension Atherosclerosis of [place] coronary artery of [place] heart without angina pectoris Changes in vascular [...] diastolic (congestive) heart failure (HCC) Atherosclerosis of [place] coronary artery of [place] heart without angina pectoris Essential hypertension Unspecified [...] chronic kidney disease (HCC) (HCC) Atherosclerosis of [place] coronary artery of [place] heart without angina pectoris Exertional dyspnea Other [...] with depressed mood [facility] Diagnosis Essential hypertension- Primary Unspecified essential hypertension Atherosclerosis of [place] coronary artery of [place] heart without angina pectoris Changes in vascular [...] diastolic (congestive) heart failure (HCC) Atherosclerosis of [place] coronary artery of [place] heart without angina pectoris Essential hypertension Unspecified [...] chronic kidney disease (HCC) (HCC) Atherosclerosis of [place] coronary artery of [place] heart without angina pectoris Exertional dyspnea Other [...] with depressed mood [facility] Diagnosis Essential hypertension- Primary Unspecified essential hypertension Atherosclerosis of [place] coronary artery of [place] heart without angina pectoris Changes in vascular [...] diastolic (congestive) heart failure (HCC) Atherosclerosis of [place] coronary artery of [place] heart without angina pectoris Essential hypertension Unspecified [...] chronic kidney disease (HCC) (HCC) Atherosclerosis of [place] coronary artery of [place] heart without angina pectoris Exertional dyspnea Other [...] heart failure (HCC) [facility] Diagnosis Essential hypertension- Primary Unspecified essential hypertension Atherosclerosis of [place] coronary artery of [place] heart without angina pectoris Changes in vascular [...] diastolic (congestive) heart failure (HCC) Atherosclerosis of [place] coronary artery of [place] heart without angina pectoris Essential hypertension Unspecified [...] chronic kidney disease (HCC) (HCC) Atherosclerosis of [place] coronary artery of [place] heart without angina pectoris Exertional dyspnea Other [...] Unspecified essential hypertension [facility] Diagnosis Essential hypertension- Primary Unspecified essential hypertension Atherosclerosis of [place] coronary artery of [place] heart without angina pectoris Changes in vascular [...] diastolic (congestive) heart failure (HCC) Atherosclerosis of [place] coronary artery of [place] heart without angina pectoris Essential hypertension Unspecified [...] chronic kidney disease (HCC) (HCC) Atherosclerosis of [place] coronary artery of [place] heart without angina pectoris Exertional dyspnea Other [...] failure (HCC)- Primary [facility] Diagnosis Essential hypertension- Primary Unspecified essential hypertension Atherosclerosis of [place] coronary artery of [place] heart without angina pectoris Changes in vascular [...] diastolic (congestive) heart failure (HCC) Atherosclerosis of [place] coronary artery of [place] heart without angina pectoris Essential hypertension Unspecified [...] chronic kidney disease (HCC) (HCC) Atherosclerosis of [place] coronary artery of [place] heart without angina pectoris Exertional dyspnea Other [...] Unspecified essential hypertension [facility] Diagnosis Essential hypertension- Primary Unspecified essential hypertension Atherosclerosis of [place] coronary artery of [place] heart without angina pectoris Changes in vascular [...] diastolic (congestive) heart failure (HCC) Atherosclerosis of [place] coronary artery of [place] heart without angina pectoris Essential hypertension Unspecified [...] chronic kidney disease (HCC) (HCC) Atherosclerosis of [place] coronary artery of [place] heart without angina pectoris Exertional dyspnea Other [...] (HCC) (HCC)- Primary [facility] Diagnosis Essential hypertension- Primary Unspecified essential hypertension Atherosclerosis of [place] coronary artery of [place] heart without angina pectoris Changes in vascular [...] diastolic (congestive) heart failure (HCC) Atherosclerosis of [place] coronary artery of [place] heart without angina pectoris Essential hypertension Unspecified [...] chronic kidney disease (HCC) (HCC) Atherosclerosis of [place] coronary artery of [place] heart without angina pectoris Exertional dyspnea Other [...] Unspecified essential hypertension [facility] Diagnosis Essential hypertension- Primary Unspecified essential hypertension Atherosclerosis of [place] coronary artery of [place] heart without angina pectoris Changes in vascular [...] diastolic (congestive) heart failure (HCC) Atherosclerosis of [place] coronary artery of [place] heart without angina pectoris Essential hypertension Unspecified [...] chronic kidney disease (HCC) (HCC) Atherosclerosis of [place] coronary artery of [place] heart without angina pectoris Exertional dyspnea Other [...] mood Telogen effluvium [facility] Diagnosis Essential hypertension- Primary Unspecified essential hypertension Atherosclerosis of [place] coronary artery of [place] heart without angina pectoris Changes in vascular [...] diastolic (congestive) heart failure (HCC) Atherosclerosis of [place] coronary artery of [place] heart without angina pectoris Essential hypertension Unspecified [...] 3b chronic kidney disease (HCC) Atherosclerosis of [place] coronary artery of [place] heart without angina pectoris Exertional dyspnea Other [...] pain laterality- Primary [facility] Diagnosis Essential hypertension- Primary Unspecified essential hypertension Atherosclerosis of [place] coronary artery of [place] heart without angina pectoris Changes in vascular [...] diastolic (congestive) heart failure (HCC) Atherosclerosis of [place] coronary artery of [place] heart without angina pectoris Essential hypertension Unspecified [...] 3b chronic kidney disease (HCC) Atherosclerosis of [place] coronary artery of [place] heart without angina pectoris Exertional dyspnea Other [...] IV, or unspecified [facility] Diagnosis Essential hypertension- Primary Unspecified essential hypertension Atherosclerosis of [place] coronary artery of [place] heart without angina pectoris Changes in vascular [...] diastolic (congestive) heart failure (HCC) Atherosclerosis of [place] coronary artery of [place] heart without angina pectoris Essential hypertension Unspecified [...] 3b chronic kidney disease (HCC) Atherosclerosis of [place] coronary artery of [place] heart without angina pectoris Exertional dyspnea Other [...] Adjustment disorder with depressed mood Atherosclerosis of [place] coronary artery of [place] heart without angina pectoris- Primary Chronic diastolic [...] has been stable. [facility] Essential hypertension- Primary Unspecified essential hypertension Atherosclerosis of [place] coronary artery of [place] heart without angina pectoris Changes in vascular [...] diastolic (congestive) heart failure (HCC) Atherosclerosis of [place] coronary artery of [place] heart without angina pectoris Essential hypertension Unspecified [...] 3b chronic kidney disease (HCC) Atherosclerosis of [place] coronary artery of [place] heart without angina pectoris Exertional dyspnea Other [...] Adjustment disorder with depressed mood Atherosclerosis of [place] coronary artery of [place] heart without angina pectoris- Primary Chronic diastolic [...] kidney disease (HCC) [facility] Diagnosis Onset Date Resolution Status Admit Date Chest pressure acute April 09, 2025 11:42pm Elevated troponin acute April 092024 11:42pm Chronic kidney disease chronic Ju ne 2024 11:42pm HTN (hypertension) chronic March 192024 11:42pm [facility] Work Phone: Evaluation note* Diagnosis Essential hypertension- Primary Unspecified essential hypertension Atherosclerosis of [place] coronary artery of [place] heart without angina pectoris Changes in vascular [...] diastolic (congestive) heart failure (HCC) Atherosclerosis of [place] coronary artery of [place] heart without angina pectoris Essential hypertension Unspecified [...] 3b chronic kidney disease (HCC) Atherosclerosis of [place] coronary artery of [place] heart without angina pectoris Exertional dyspnea Other [...] Adjustment disorder with depressed mood Atherosclerosis of [place] coronary artery of [place] heart without angina pectoris- Primary Chronic diastolic (congestive) heart failure (HCC) Anemia due to stage 3b chronic kidney disease ([facility]) Decreased hearing of both ears Medicare annual [...] or unspecified Essential hypertension Unspecified essential hypertension NSTEMI (non-ST elevated myocardial infarction) ([facility])- Primary Acute myocardial infarction, subendocardial infarction, episode of care unspecified Pulmonary nodules Other nonspecific abnormal finding of lung field Lung nodules Other nonspecific abnormal finding of lung field Acute deep vein thrombosis (DVT) of calf muscle vein of left lower extremity ([facility]) Demand ischemia ([facility]) Other acute and subacute form of ischemic heart disease Nausea Nausea alone Dizziness Dizziness and giddiness [facility] Essential hypertension- Primary Unspecified essential hypertension Atherosclerosis of [place] coronary artery of [place] heart without angina pectoris Changes in vascular appearance of retina, bilateral Urinary calculus, unspecified Bcc L cheek 02/22 Basal cell carcinoma of skin of other and unspecified parts of face PERS HX OF IRRADIATION-face and neck Personal history of irradiation, presenting hazards to health CKD (chronic kidney disease) stage 3, GFR 30-59 ml/min ([facility]) Chronic kidney disease, Stage III (moderate) Malignant [...] diastolic (congestive) heart failure (HCC) Atherosclerosis of [place] coronary artery of [place] heart without angina pectoris Essential hypertension Unspecified [...] 3b chronic kidney disease (HCC) Atherosclerosis of [place] coronary artery of [place] heart without angina pectoris Exertional dyspnea Other [...] Adjustment disorder with depressed mood Atherosclerosis of [place] coronary artery of [place] heart without angina pectoris- Primary Chronic diastolic [...] or unspecified Essential hypertension Unspecified essential hypertension Dizziness- Primary Dizziness and giddiness Hypoxia Hypoxemia documented in this encounter [facility] Discharge instructions Additional Instructions Please return for any worsening of your symptoms. Stay well-hydrated.[facility] Work Phone: Reason for referral (narrative)* Diagnostic Procedure Only (Routine) - Authorized Specialty Diagnoses / Procedures Referred By Tanya rodriguez Referred To Contact US IMAGING Diagnoses Urinary retention Procedures US PELVIS BLADDER US PELVIC NONOBSTETRIC IMAGE DCMTN LIMITED/F/U Susannah Clemente MD [address] [place] [address] Us Imaging Referral ID Status Reason Start Date Expiration Date Visits Requested Visits Authorized [id number] Authorized Auto-Generat ed Referral 2 10/31/2023 1 1 * Diagnostic Procedure Only (Routine) - Authorized Specialty Diagnoses / Procedures Referred By Tanya rodriguez Referred To Contact US IMAGING Diagnoses Urinary retention Procedures US KIDNEY/BLADDER US RETROPERITONEAL REAL TIME W/IMAGE COMPLETE Susannah Clemente MD [address] [place] [address] Us Imaging Referral ID Status Reason Start Date Expiration Date Visits Requested Visits Authorized [id number] Authorized Auto-Generat ed Referral 2 10/31/2023 1 1 [facility] for referral (narrative)* Outpatient Procedure (Routine) - Authorized Specialty Diagnoses / Procedures Referred By Contac t Referred To Contact [facility] Diagnoses Chronic heart failure with preserved ejection fraction (HCC) Procedures ECHO ECHO TTHRC R-T 2D W/WOM-MODE COMPL SPEC&COLR Le Rebollar APRN.NARROW GAUGE OPERATOR [address] [place] [address] [facility] [place][Note 2] [facility] [address] [place] [address] Referral ID Status Reason Start Date Expiration Date Visits Requested Visits Authorized [id number] Authorized Auto-Generat ed Referral 04/02/2023 11/20/2023 1 1 [facility] for referral (narrative)* Diagnostic Procedure Only (Routine) - Pending Review Specialty Diagnoses / Procedures Referred By Rubiaac t Referred To Contact BR IMAGING Diagnoses Encounter for screening mammogram for breast cancer Procedures NICOLE SCREENING W MICHELLE SCREENING DIGITAL BREAST TOMOSYNTHESIS BI SCREENING MAMMOGRAPHY BI 2-VIEW BREAST INC Alicia Ochoa APRN.NARROW GAUGE OPERATOR [address] [place] [address] [facility] [address] [place] [phone] Referral ID Status Reason Start Date Expiration Date Visits Requested Visits Authorized [id number] Pending Review Auto-Generat ed Referral 01/05/2023 02/04/2024 1 1 [facility] for referral (narrative)* Diagnostic Procedure Only (Routine) - Pending Review Specialty Diagnoses / Procedures Referred By Contac t Referred To Contact MOLECULAR & FUNCTIONAL IMAGING Diagnoses Medicare annual wellness visit, subsequent Epigastric pain Procedures NM HEPATOBILIARY W EF AND/OR RX HEPATOBIL SYST IMAG INC GB W/PHARMA INTERVENJ Susannah Clemente MD [address] [place] [address] Molecular [facility] Functional Imaging [address] [place] [address] Referral ID Status Reason Start Date Expiration Date Visits Requested Visits Authorized [id number] Pending Review Auto-Generat ed Referral 07/05/2023 08/03/2024 1 1 * Consult, Test, Treat (Routine) - Authorized Specialty Diagnoses / Procedures Referred By Contac t Referred To Contact Diagnoses Medicare annual wellness visit, subsequent Decreased hearing of both ears Procedures HEARING TEST/AUDIOGRAM COMPRE AUDIOMETRY THRESHOLD EVAL SP ESTEBANIJ Susannah Clemente MD [address] [place] [address] [facility] [address] [place] [address] Referral ID Status Reason Start Date Expiration Date Visits Requested Visits Authorized [id number] Authorized Auto-Generat ed Referral 07/05/2023 10/03/2023 1 1 * Consult, Test, Treat (Routine) - Authorized Specialty Diagnoses / Procedures Referred By Contac t Referred To Contact [facility] Diagnoses Medicare annual wellness visit, subsequent Thoracogenic scoliosis, unspecified spinal region Chronic thoracic back pain, unspecified back pain laterality Procedures CONSULT TO [facility] OFFICE/OUTPATIENT [facility] 60-74 MINUTES Susannah Clemente MD [address] [place] [address] Referral ID Status Reason Start Date Expiration Date Visits Requested Visits Authorized [id number] Authorized PCP Requested Referral 07/05/2023 07/04/2024 1 1 [facility] for referral (narrative)* Diagnostic Procedure Only (Routine) - Closed Specialty Diagnoses / Procedures Referred By Contac t Referred To Contact XR IMAGING Diagnoses Acute right-sided thoracic back pain Procedures XR THORACIC GENERAL 3V AP/LAT/SWIMMERS RADEX SPINE THORACIC 3 VIEWS Susannah Clemente MD [address] [place] [address] [place] [address] Referral ID Status Reason Start Date Expiration Date V isits Requested Visits Authorized [id number] Closed Auto-Generate d Referral 03/08/2023 04/06/2024 1 1 * Diagnostic Procedure Only (Routine) - Closed Specialty Diagnoses / Procedures Referred By Contac t Referred To Contact XR IMAGING Diagnoses Acute right-sided thoracic back pain Procedures XR RIBS/CHEST 3V AP RIB/OBLS/CXR RIGHT RADEX RIBS UNI W/POSTEROANT CH MINIMUM 3 VIEWS Susannah Clemente MD [address] [place] [address] [place] [address] Referral ID Status Reason Start Date Expiration Date V isits Requested Visits Authorized [id number] Closed Auto-Generate d Referral 03/08/2023 04/06/2024 1 1 [facility] for referral (narrative)* Diagnostic Procedure Only (Routine) - Closed Specialty Diagnoses / Procedures Referred By [facility] Referred To Contact US IMAGING Diagnoses Epigastric abdominal tenderness without rebound tenderness Procedures US ABD RIGHT UPPER QUADRANT US ABDOMINAL REAL TIME W/IMAGE LIMITED Susannah Clemente MD [address] [place] [address] [place] [address] Referral ID Status Reason Start Date Expiration Date V isits Requested Visits Authorized [id number] Closed Auto-Generate d Referral 03/23/2023 04/21/2024 1 1 [facility] for referral (narrative)* Diagnostic Procedure Only (Routine) - Closed Specialty Diagnoses / Procedures Referred By Tanya t Referred To Contact MOLECULAR & FUNCTIONAL IMAGING Diagnoses Medicare annual wellness visit, subsequent Epigastric pain Procedures NM HEPATOBILIARY W EF AND/OR RX HEPATOBIL SYST IMAG INC GB W/PHARMA INTERVENJ Susannah Clemente MD [address] [place] [address] Molecular [facility] Functional Imaging [address] [place] [address] Referral ID Status Reason Start Date Expiration Date V isits Requested Visits Authorized [id number] Closed Auto-Generate d Referral 07/05/2023 08/03/2024 1 1 [facility] for referral (narrative)* Diagnostic Procedure Only (Routine) - Closed Specialty Diagnoses / Procedures Referred By Tanya rodriguez Referred To Contact US IMAGING Diagnoses Urinary retention Procedures US KIDNEY/BLADDER US RETROPERITONEAL REAL TIME W/IMAGE COMPLETE Susannah Clemente MD [address] [place] [address] [place] [address] Referral ID Status Reason Start Date Expiration Date V isits Requested Visits Authorized [id number] Closed Auto-Generate d Referral 10/01/2022 10/31/2023 1 1 [facility] for referral (narrative)* Diagnostic Procedure Only (Routine) - Pending Review Specialty Diagnoses / Procedures Referred By Tanya t Referred To Contact BR IMAGING Diagnoses Personal history of malignant neoplasm of breast Encounter for screening mammogram for malignant neoplasm of breast Procedures NICOLE SCREENING W MICHELLE SCREENING DIGITAL BREAST TOMOSYNTHESIS BI SCREENING MAMMOGRAPHY BI 2-VIEW BREAST INC Ruby Gaines PA-C [address] [place] [address] Br Imaging [address] [place] [address] Referral ID Status Reason Start Date Expiration Date Visits Requested Visits Authorized [id number] Pending Review Auto-Generat ed Referral 12/20/2023 01/18/2025 1 1 [facility] for referral (narrative)* Diagnostic Procedure Only (Routine) - Authorized Specialty Diagnoses / Procedures Referred By Tanya rodriguez Referred To Contact BR IMAGING Diagnoses Encounter for screening mammogram for breast cancer Procedures NICOLE SCREENING W MICHELLE SCREENING DIGITAL BREAST TOMOSYNTHESIS BI SCREENING MAMMOGRAPHY BI 2-VIEW BREAST INC CAD Alicia Hylton APRN.NARROW GAUGE OPERATOR [address] [place] [address] Br Imaging [address] [place] [address] Referral ID Status Reason Start Date Expiration Date Visits Requested Visits Authorized [id number] Authorized Auto-Generat ed Referral 12/31/2023 01/29/2025 1 1 [facility] for referral (narrative)* Diagnostic Procedure Only (Routine) - Authorized Specialty Diagnoses / Procedures Referred By Tanya rodriguez Referred To Contact BR IMAGING Diagnoses Abnormal mammogram Procedures US BREAST LTD RIGHT US BREAST UNI REAL TIME WITH IMAGE LIMITED Alicia Hylton APRN.NARROW GAUGE OPERATOR [address] [place] [address] Br Imaging [address] [place] [address] Referral ID Status Reason Start Date Expiration Date Visits Requested Visits Authorized [id number] Authorized Auto-Generat ed Referral 01/10/2024 02/08/2025 1 1 * Diagnostic Procedure Only (Routine) - Authorized Specialty Diagnoses / Procedures Referred By Tanya rodriguez Referred To Contact BR IMAGING Diagnoses Abnormal mammogram Procedures NICOLE DIAGNOSTIC RIGHT DIAGNOSTIC MAMMOGRAPHY COMPUTER-AIDED DETCJ UNI Alicia Hylton APRN.NARROW GAUGE OPERATOR [address] [place] [address] Br Imaging [address] [place] [address] Referral ID Status Reason Start Date Expiration Date Visits Requested Visits Authorized [id number] Authorized Auto-Generat ed Referral 01/10/2024 02/08/2025 1 1 [facility] for referral (narrative)* Outpatient Procedure (Routine) - Pending Review Specialty Diagnoses / Procedures Referred By Contac t Referred To Contact [facility] [place] Diagnoses Chronic diastolic (congestive) heart failure (HCC) Procedures ECHO ECHO TTHRC R-T 2D W/WOM-MODE COMPL SPEC&COLR D Paul Bautista MD [address] [place] [address] [address] Referral ID Status Reason Start Date Expiration Date Visits Requested Visits Authorized [id number] Pending Review Auto-Generat ed Referral 12/30/2024 03/30/2025 1 1 * Transition of Care (Routine) - Ref Not Required Specialty Diagnoses / Procedures Referred By Tanya t Referred To Contact [facility] Procedures CARDIOVASCULAR MEDICINE OP FOLLOW UP APPT ORDER Paul Bautista MD [address] [place] [address] [address] Referral ID Status Reason Start Date Expiration Date Visits Requested Visits Authorized [id number] Ref Not Required PCP Requested Referral 12/30/2024 03/30/2025 1 1 [facility] for referral (narrative)* Diagnostic Procedure Only (Routine) - Closed Specialty Diagnoses / Procedures Referred By Tanya t Referred To Contact BR IMAGING Diagnoses Encounter for screening mammogram for breast cancer Procedures NICOLE SCREENING W MICHELLE SCREENING DIGITAL BREAST TOMOSYNTHESIS BI SCREENING MAMMOGRAPHY BI 2-VIEW BREAST INC Alicia Ochoa APRN.CNP [address] [place] [address] Imaging [address] [place] [address] Referral ID Status Reason Start Date Expiration Date V isits Requested Visits Authorized [id number] Closed Auto-Generate d Referral 12/31/2023 01/29/2025 1 1 [facility] for referral (narrative)* Outpatient Procedure (Routine) - New Request Specialty Diagnoses / Procedures Referred By Contac t Referred To Contact [facility] [place] Diagnoses Exertional dyspnea Procedures STRESS ECHO TREADMILL ECHO TTHRC R-T 2D W/WO M-MODE COMPLETE REST&ST Susannah Clemente MD [address] [place] [address] [facility] [place][Note 2] [facility] [address] [place] [address] Referral ID Status Reason Start Date Expiration Date Visits Requested Visits Authorized [id number] New Request Auto-Generat ed Referral 07/03/2024 07/03/2025 1 1 * Outpatient Procedure (Routine) - New Request Specialty Diagnoses / Procedures Referred By Contac t Referred To Contact 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 disease, or chronic kidney disease (HCC) Exertional dyspnea Procedures ECG COMPLETE ECG ROUTINE ECG W/LEAST 12 LDS W/I&R Susannah Clemente MD [address] [place] [address] [facility] [address] [place] [address] Referral ID Status Reason Start Date Expiration Date Visits Requested Visits Authorized [id number] New Request Auto-Generat ed Referral 07/03/2024 07/03/2025 1 1 [facility] for referral (narrative)* Diagnostic Procedure Only (Routine) - Closed Specialty Diagnoses / Procedures Referred By Contac t Referred To Contact BR IMAGING Diagnoses Encounter for screening mammogram for breast cancer Procedures NICOLE SCREENING W MICHELLE SCREENING DIGITAL BREAST TOMOSYNTHESIS BI SCREENING MAMMOGRAPHY BI 2-VIEW BREAST INC Alicia Ochoa APRN.CNP [address] [place] [address] Br Imaging [address] [place] [address] Referral ID Status Reason Start Date Expiration Date V isits Requested Visits Authorized [id number] Closed Auto-Generate d Referral 01/05/2023 02/04/2024 1 1 [facility] for referral (narrative)* Diagnostic Procedure Only (Routine) - Closed Specialty Diagnoses / Procedures Referred By Tanya rodriguez Referred To Contact BR IMAGING Diagnoses Encounter for screening mammogram for malignant neoplasm of breast Procedures NICOLE SCREENING W MICHELLE SCREENING BREAST DGTL IMCHELLE UNI/BILAT ADD ON SCREENING MAMMOGRAPHY BI 2-VIEW BREAST INC Ai Brar PA-C [facility] [place] [address] Br Imaging [address] [place] [address] Referral ID Status Reason Start Date Expiration Date V isits Requested Visits Authorized [id number] Closed Auto-Generate d Referral 07/08/2021 08/07/2022 1 1 [facility] for referral (narrative)* Outpatient Procedure (Routine) - Authorized Specialty Diagnoses / Procedures Referred By Tanya rodriguez Referred To Contact [facility] Diagnoses Chronic diastolic (congestive) heart failure (HCC) Procedures ECHO ECHO TTHRC R-T 2D W/WOM-MODE COMPL SPEC&COLR D Paul Bautista MD [address] [place] [address] [facility] [address] [address] Referral ID Status Reason Start Date Expiration Date Visits Requested Visits Authorized [id number] Authorized Auto-Generat ed Referral 4 09/13/2025 1 1 [facility]No reason for referral information availableWCleveland [facility] Work Phone: Reason for visit Narrative* Diagnostic Procedure Only (Routine) - Closed Specialty Diagnoses / Procedures Referred By Contac t Referred To Contact XR IMAGING Diagnoses Acute right-sided thoracic back pain Procedures XR RIBS/CHEST 3V AP RIB/OBLS/CXR RIGHT RADEX RIBS UNI W/POSTEROANT CH MINIMUM 3 VIEWS Susannah Clemente MD [address] [place] [address] [place] [address] Referral ID Status Reason Start Date Expiration Date V isits Requested Visits Authorized [id number] Closed Auto-Generate d Referral 03/08/2023 04/06/2024 1 1 [facility] Summary Purpose Family History Relationship Condition [...] Documents on File Type Date Recorded 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 Advance Directive(s) 12/16/2021 4:08 PM Date Activated Date Inactivated Comments 10/18/2019 5:45 PM 10/22/2019 5:44 PM Question Answer Comments Full Code Order Discussed With: Patient Documents on File Type Date Recorded 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 Advance Directive(s) 12/16/2021 4:08 PM Latest Code Status on File Code Status Date Activated Date Inactivated Comments Full Code 10/18/2019 5:45 PM 10/22/2019 5:44 PM Full Code Order Discussed With: Patient Documents on File Type Date Recorded 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 Advance Directive(s) 12/16/2021 4:08 PM Advance Directive(s) 11/26/2021 7:30 AM Advance Directive(s) 10/31/2021 9:14 AM Advance Directive(s) 11/23/2019 3:35 PM Advance Directive(s) 11/22/2019 10:56 AM Advance Directive(s) 02/04/2018 12:21 PM Documents on File Type Date Recorded 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 Yes April 09, 2025 7:26pm Advance Directive Response Recorded Date/ Time Do you have a Healthcare Power of Crane Helper? Yes April 10, 2025 12:27am Reason for Referral Specialty Diagnoses / Procedures Referred By Contac t Referred To Contact Cardiology Diagnoses 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 disease, or chronic kidney disease (HCC) Procedures CONSULT TO CARDIOLOGY OFFICE/OUTPATIENT [facility] 60-74 MINUTES Susannah Clemente MD [address] [place] [address] Referral ID Status Reason Start Date Expiration Date Visits Requested Visits Authorized [id number] Authorized PCP Requested Referral 04/14/2022 04/14/2023 1 1 Specialty Diagnoses / Procedures Referred By Contac t Referred To Contact Diagnoses Rib pain on right side Thoracogenic scoliosis, unspecified spinal region Procedures CONSULT FOR ACUPUNCTURE OFFICE/OUTPATIENT [facility] MDM 60-74 MINUTES Susannah Clemente MD [address] [place] [address] Referral ID Status Reason Start Date Expiration Date Visits Requested Visits Authorized [id number] Pending Review PCP Requested Referral 03/23/2023 03/22/2024 1 1 Specialty Diagnoses / Procedures Referred By Contac t Referred To Contact US IMAGING Diagnoses Epigastric abdominal tenderness without rebound tenderness Procedures US ABD RIGHT UPPER QUADRANT US ABDOMINAL REAL TIME W/IMAGE LIMITED Susannah Clemente MD [address] [place] [address] Us Imaging Referral ID Status Reason Start Date Expiration Date Visits Requested Visits Authorized [id number] Authorized Auto-Generat ed Referral 03/23/2023 04/21/2024 1 1 Specialty Diagnoses / Procedures Referred By Contac t Referred To Contact [facility] Diagnoses Chronic thoracic back pain, unspecified back pain laterality 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 Procedures CONSULT TO PHYSICAL THERAPY PHYSICAL THERAPY EVALUATION HIGH COMPLEX 45 MINS Migel Garcia, PAMarybel [address] [place] [address] [facility] [address] [place] [address] Referral ID Status Reason Start Date Expiration Date Visits Requested Visits Authorized [id number] Authorized PCP Requested Referral Auto-Generate d Referral 08/05/2024 99 99 Specialty Diagnoses / Procedures Referred By Contac t Referred To Contact Procedures HEARING TEST/AUDIOGRAM COMPRE AUDIOMETRY THRESHOLD EVAL Cristina Joshua, AUD [address] [place] [address] [facility] [address] [place] [address] Referral ID Status Reason Start Date Expiration Date Visits Requested Visits Authorized [id number] Pending Review Auto-Generat ed Referral 07/26/2023 07/26/2024 1 1 Specialty Diagnoses / Procedures Referred By Contac t Referred To Contact Procedures CARDIOVASCULAR MEDICINE OP FOLLOW UP APPT ORDER Paul Bautista MD [address] [place] [address] Referral ID Status Reason Start Date Expiration Date Visits Requested Visits Authorized [id number] Ref Not Required PCP Requested Referral 03/31/2024 09/29/2024 1 1 Specialty Diagnoses / Procedures Referred By Contac t Referred To Contact Psychology Diagnoses Situational depression Procedures CONSULT TO PSYCHOLOGY OFFICE/OUTPATIENT [facility] 60 MINUTES Susannah Clemente MD [address] [place] [address] Referral ID Status Reason Start Date Expiration Date Visits Requested Visits Authorized [id number] Pending Review PCP Requested Referral 01/04/2024 01/03/2025 [...] HTN (hypertension) April 09, 2025 11:4 2pm Chief Complaint Admit Date chest pain with ELEVATED TROPOPIN March 192024 11:42pm chest pain with ELEVATED TROPOPIN March 192024 4:29pm chest pain with ELEVATED TROPOPIN March 192024 12:11pm Reason for Visit Admit Date Chest pressure April 09, 2025 11:4 2pm Elevated troponin April 09, 2025 11:4 2pm Hypertensive emergency April 09, 2025 1 1:42pm NSTEMI (non-ST elevated myocardial infar ction) April 09, 2025 11:42pm Chronic diastolic CHF (congestive heart failure) April 09, 2025 11:42pm Chronic kidney disease April 09, 2025 1 1:42pm HTN (hypertension) April 09, 2025 11:4 2pm Additional Source Comments INFORMATION SOURCE (unrecogn ized section and content) DATE CREATED AUTHOR 04/07/2018 [facility] DATE CREATED AUTHOR AUTHOR'S ORGANIZ ATION 04/07/2018 [facility] DATE CREATED AUTHOR AUTHOR'S ORGANIZ ATION 07/10/2020 [facility] DATE CREATED AUTHOR AUTHOR'S ORGANIZ ATION 02/05/[address] [facility] DATE CREATED AUTHOR AUTHOR'S ORGANIZ ATION 04/19/2025 [facility] DATE CREATED AUTHOR AUTHOR'S ORGANIZ ATION 04/22/2025 [facility] Source Comments (unrecognize d section and content) In the event this informatio n is protected by the Federal Confidentiality of Alcohol and Drug Abuse Patient Records regulations: The Federal rules restrict any use of the information to criminally investigate or prosecute any alcohol or drug abuse patient.[facility] the event this information is protected by the Federal Confidentiality of Alcohol and Drug Abuse Patient Records regulations: The Federal rules restrict any use of the information to criminally investigate or prosecute any alcohol or drug abuse patient.[facility] the event this information is protected by the Federal Confidentiality of Alcohol and Drug Abuse Patient Records regulations: The Federal rules restrict any use of the information to criminally investigate or prosecute any alcohol or drug abuse patient.[facility] the event this information is protected by the Federal Confidentiality of Alcohol and Drug Abuse Patient Records regulations: The Federal rules restrict any use of the information to criminally investigate or prosecute any alcohol or drug abuse patient.[facility] the event this information is protected by the Federal Confidentiality of Alcohol and Drug Abuse Patient Records regulations: The Federal rules restrict any use of the information to criminally investigate or prosecute any alcohol or drug abuse patient.[facility] the event this information is protected by the Federal Confidentiality of Alcohol and Drug Abuse Patient Records regulations: The Federal rules restrict any use of the information to criminally investigate or prosecute any alcohol or drug abuse patient.[facility] the event this information is protected by the Federal Confidentiality of Alcohol and Drug Abuse Patient Records regulations: The Federal rules restrict any use of the information to criminally investigate or prosecute any alcohol or drug abuse patient.[facility] the event this information is protected by the Federal Confidentiality of Alcohol and Drug Abuse Patient Records regulations: The Federal rules restrict any use of the information to criminally investigate or prosecute any alcohol or drug abuse patient.[facility] [facility]In the event this information is protected by the Federal Confidentiality of Alcohol and Drug Abuse Patient Records regulations: The Federal rules restrict any use of the information to criminally investigate or prosecute any alcohol or drug abuse patient.[facility] the event this information is protected by the Federal Confidentiality of Alcohol and Drug Abuse Patient Records regulations: The Federal rules restrict any use of the information to criminally investigate or prosecute any alcohol or drug abuse patient.[facility]In the event this information is protected by the Federal Confidentiality of Alcohol and Drug Abuse Patient Records regulations: The Federal rules restrict any use of the information to criminally investigate or prosecute any alcohol or drug abuse patient.[facility]In the event this information is protected by the Federal Confidentiality of Alcohol and Drug Abuse Patient Records regulations: The Federal rules restrict any use of the information to criminally investigate or prosecute any alcohol or drug abuse patient.[facility]In the event this information is protected by the Federal Confidentiality of Alcohol and Drug Abuse Patient Records regulations: The Federal rules restrict any use of the information to criminally investigate or prosecute any alcohol or drug abuse patient.[facility]In the event this information is protected by the Federal Confidentiality of Alcohol and Drug Abuse Patient Records regulations: The Federal rules restrict any use of the information to criminally investigate or prosecute any alcohol or drug abuse patient.[facility]In the event this information is protected by the Federal Confidentiality of Alcohol and Drug Abuse Patient Records regulations: The Federal rules restrict any use of the information to criminally investigate or prosecute any alcohol or drug abuse patient.[facility]In the event this information is protected by the Federal Confidentiality of Alcohol and Drug Abuse Patient Records regulations: The Federal rules restrict any use of the information to criminally investigate or prosecute any alcohol or drug abuse patient.[facility]In the event this information is protected by the Federal Confidentiality of Alcohol and Drug Abuse Patient Records regulations: The Federal rules restrict any use of the information to criminally investigate or prosecute any alcohol or drug abuse patient.[facility]In the event this information is protected by the Federal Confidentiality of Alcohol and Drug Abuse Patient Records regulations: The Federal rules restrict any use of the information to criminally investigate or prosecute any alcohol or drug abuse patient.[facility]In the event this information is protected by the Federal Confidentiality of Alcohol and Drug Abuse Patient Records regulations: The Federal rules restrict any use of the information to criminally investigate or prosecute any alcohol or drug abuse patient.[facility]In the event this information is protected by the Federal Confidentiality of Alcohol and Drug Abuse Patient Records regulations: The Federal rules restrict any use of the information to criminally investigate or prosecute any alcohol or drug abuse patient.[facility]In the event this information is protected by the Federal Confidentiality of Alcohol and Drug Abuse Patient Records regulations: The Federal rules restrict any use of the information to criminally investigate or prosecute any alcohol or drug abuse patient.[facility]In the event this information is protected by the Federal Confidentiality of Alcohol and Drug Abuse Patient Records regulations: The Federal rules restrict any use of the information to criminally investigate or prosecute any alcohol or drug abuse patient.[facility]In the event this information is protected by the Federal Confidentiality of Alcohol and Drug Abuse Patient Records regulations: The Federal rules restrict any use of the information to criminally investigate or prosecute any alcohol or drug abuse patient.[facility]In the event this information is protected by the Federal Confidentiality of Alcohol and Drug Abuse Patient Records regulations: The Federal rules restrict any use of the information to criminally investigate or prosecute any alcohol or drug abuse patient.[facility]In the event this information is protected by the Federal Confidentiality of Alcohol and Drug Abuse Patient Records regulations: The Federal rules restrict any use of the information to criminally investigate or prosecute any alcohol or drug abuse patient.[facility]In the event this information is protected by the Federal Confidentiality of Alcohol and Drug Abuse Patient Records regulations: The Federal rules restrict any use of the information to criminally investigate or prosecute any alcohol or drug abuse patient.[facility]In the event this information is protected by the Federal Confidentiality of Alcohol and Drug Abuse Patient Records regulations: The Federal rules restrict any use of the information to criminally investigate or prosecute any alcohol or drug abuse patient.[facility]In the event this information is protected by the Federal Confidentiality of Alcohol and Drug Abuse Patient Records regulations: The Federal rules restrict any use of the information to criminally investigate or prosecute any alcohol or drug abuse patient.[facility]In the event this information is protected by the Federal Confidentiality of Alcohol and Drug Abuse Patient Records regulations: The Federal rules restrict any use of the information to criminally investigate or prosecute any alcohol or drug abuse patient.[facility]In the event this information is protected by the Federal Confidentiality of Alcohol and Drug Abuse Patient Records regulations: The Federal rules restrict any use of the information to criminally investigate or prosecute any alcohol or drug abuse patient.[facility]In the event this information is protected by the Federal Confidentiality of Alcohol and Drug Abuse Patient Records regulations: The Federal rules restrict any use of the information to criminally investigate or prosecute any alcohol or drug abuse patient.[facility]In the event this information is protected by the Federal Confidentiality of Alcohol and Drug Abuse Patient Records regulations: The Federal rules restrict any use of the information to criminally investigate or prosecute any alcohol or drug abuse patient.[facility]In the event this information is protected by the Federal Confidentiality of Alcohol and Drug Abuse Patient Records regulations: The Federal rules restrict any use of the information to criminally investigate or prosecute any alcohol or drug abuse patient.[facility]In the event this information is protected by the Federal Confidentiality of Alcohol and Drug Abuse Patient Records regulations: The Federal rules restrict any use of the information to criminally investigate or prosecute any alcohol or drug abuse patient.[facility]In the event this information is protected by the Federal Confidentiality of Alcohol and Drug Abuse Patient Records regulations: The Federal rules restrict any use of the information to criminally investigate or prosecute any alcohol or drug abuse patient.[facility] HospitalIn the event this information is protected by the Federal Confidentiality of Alcohol and Drug Abuse Patient Records regulations: The Federal rules restrict any use of the information to criminally investigate or prosecute any alcohol or drug abuse patient.[facility]In the event this information is protected by the Federal Confidentiality of Alcohol and Drug Abuse Patient Records regulations: The Federal rules restrict any use of the information to criminally investigate or prosecute any alcohol or drug abuse patient.[facility] HospitalIn the event this information is protected by the Federal Confidentiality of Alcohol and Drug Abuse Patient Records regulations: The Federal rules restrict any use of the information to criminally investigate or prosecute any alcohol or drug abuse patient.[facility]In the event this information is protected by the Federal Confidentiality of Alcohol and Drug Abuse Patient Records regulations: The Federal rules restrict any use of the information to criminally investigate or prosecute any alcohol or drug abuse patient.[facility]In the event this information is protected by the Federal Confidentiality of Alcohol and Drug Abuse Patient Records regulations: The Federal rules restrict any use of the information to criminally investigate or prosecute any alcohol or drug abuse patient.[facility]In the event this information is protected by the Federal Confidentiality of Alcohol and Drug Abuse Patient Records regulations: The Federal rules restrict any use of the information to criminally investigate or prosecute any alcohol or drug abuse patient.[facility]In the event this information is protected by the Federal Confidentiality of Alcohol and Drug Abuse Patient Records regulations: The Federal rules restrict any use of the information to criminally investigate or prosecute any alcohol or drug abuse patient.[facility]In the event this information is protected by the Federal Confidentiality of Alcohol and Drug Abuse Patient Records regulations: The Federal rules restrict any use of the information to criminally investigate or prosecute any alcohol or drug abuse patient.[facility]In the event this information is protected by the Federal Confidentiality of Alcohol and Drug Abuse Patient Records regulations: The Federal rules restrict any use of the information to criminally investigate or prosecute any alcohol or drug abuse patient.[facility]In the event this information is protected by the Federal Confidentiality of Alcohol and Drug Abuse Patient Records regulations: The Federal rules restrict any use of the information to criminally investigate or prosecute any alcohol or drug abuse patient.[facility]In the event this information is protected by the Federal Confidentiality of Alcohol and Drug Abuse Patient Records regulations: The Federal rules restrict any use of the information to criminally investigate or prosecute any alcohol or drug abuse patient.[facility]In the event this information is protected by the Federal Confidentiality of Alcohol and Drug Abuse Patient Records regulations: The Federal rules restrict any use of the information to criminally investigate or prosecute any alcohol or drug abuse patient.[facility]In the event this information is protected by the Federal Confidentiality of Alcohol and Drug Abuse Patient Records regulations: The Federal rules restrict any use of the information to criminally investigate or prosecute any alcohol or drug abuse patient.[facility]In the event this information is protected by the Federal Confidentiality of Alcohol and Drug Abuse Patient Records regulations: The Federal rules restrict any use of the information to criminally investigate or prosecute any alcohol or drug abuse patient.[facility]In the event this information is protected by the Federal Confidentiality of Alcohol and Drug Abuse Patient Records regulations: The Federal rules restrict any use of the information to criminally investigate or prosecute any alcohol or drug abuse patient.[facility]In the event this information is protected by the Federal Confidentiality of Alcohol and Drug Abuse Patient Records regulations: The Federal rules restrict any use of the information to criminally investigate or prosecute any alcohol or drug abuse patient.[facility]In the event this information is protected by the Federal Confidentiality of Alcohol and Drug Abuse Patient Records regulations: The Federal rules restrict any use of the information to criminally investigate or prosecute any alcohol or drug abuse patient.[facility]In the event this information is protected by the Federal Confidentiality of Alcohol and Drug Abuse Patient Records regulations: The Federal rules restrict any use of the information to criminally investigate or prosecute any alcohol or drug abuse patient.[facility]In the event this information is protected by the Federal Confidentiality of Alcohol and Drug Abuse Patient Records regulations: The Federal rules restrict any use of the information to criminally investigate or prosecute any alcohol or drug abuse patient.[facility]In the event this information is protected by the Federal Confidentiality of Alcohol and Drug Abuse Patient Records regulations: The Federal rules restrict any use of the information to criminally investigate or prosecute any alcohol or drug abuse patient.[facility]In the event this information is protected by the Federal Confidentiality of Alcohol and Drug Abuse Patient Records regulations: The Federal rules restrict any use of the information to criminally investigate or prosecute any alcohol or drug abuse patient.[facility]In the event this information is protected by the Federal Confidentiality of Alcohol and Drug Abuse Patient Records regulations: The Federal rules restrict any use of the information to criminally investigate or prosecute any alcohol or drug abuse patient.[facility]In the event this information is protected by the Federal Confidentiality of Alcohol and Drug Abuse Patient Records regulations: The Federal rules restrict any use of the information to criminally investigate or prosecute any alcohol or drug abuse patient.[facility]In the event this information is protected by the Federal Confidentiality of Alcohol and Drug Abuse Patient Records regulations: The Federal rules restrict any use of the information to criminally investigate or prosecute any alcohol or drug abuse patient.[facility]In the event this information is protected by the Federal Confidentiality of Alcohol and Drug Abuse Patient Records regulations: The Federal rules restrict any use of the information to criminally investigate or prosecute any alcohol or drug abuse patient.[facility]In the event this information is protected by the Federal Confidentiality of Alcohol and Drug Abuse Patient Records regulations: The Federal rules restrict any use of the information to criminally investigate or prosecute any alcohol or drug abuse patient.[facility]In the event this information is protected by the Federal Confidentiality of Alcohol and Drug Abuse Patient Records regulations: The Federal rules restrict any use of the information to criminally investigate or prosecute any alcohol or drug abuse patient.[facility]In the event this information is protected by the Federal Confidentiality of Alcohol and Drug Abuse Patient Records regulations: The Federal rules restrict any use of the information to criminally investigate or prosecute any alcohol or drug abuse patient.[facility]In the event this information is protected by the Federal Confidentiality of Alcohol and Drug Abuse Patient Records regulations: The Federal rules restrict any use of the information to criminally investigate or prosecute any alcohol or drug abuse patient.[facility]In the event this information is protected by the Federal Confidentiality of Alcohol and Drug Abuse Patient Records regulations: The Federal rules restrict any use of the information to criminally investigate or prosecute any alcohol or drug abuse patient.[facility]In the event this information is protected by the Federal Confidentiality of Alcohol and Drug Abuse Patient Records regulations: The Federal rules restrict any use of the information to criminally investigate or prosecute any alcohol or drug abuse patient.[facility]In the event this information is protected by the Federal Confidentiality of Alcohol and Drug Abuse Patient Records regulations: The Federal rules restrict any use of the information to criminally investigate or prosecute any alcohol or drug abuse patient.[facility]In the event this information is protected by the Federal Confidentiality of Alcohol and Drug Abuse Patient Records regulations: The Federal rules restrict any use of the information to criminally investigate or prosecute any alcohol or drug abuse patient.[facility]In the event this information is protected by the Federal Confidentiality of Alcohol and Drug Abuse Patient Records regulations: The Federal rules restrict any use of the information to criminally investigate or prosecute any alcohol or drug abuse patient.[facility]In the event this information is protected by the Federal Confidentiality of Alcohol and Drug Abuse Patient Records regulations: The Federal rules restrict any use of the information to criminally investigate or prosecute any alcohol or drug abuse patient.[facility]In the event this information is protected by the Federal Confidentiality of Alcohol and Drug Abuse Patient Records regulations: The Federal rules restrict any use of the information to criminally investigate or prosecute any alcohol or drug abuse patient.[facility]In the event this information is protected by the Federal Confidentiality of Alcohol and Drug Abuse Patient Records regulations: The Federal rules restrict any use of the information to criminally investigate or prosecute any alcohol or drug abuse patient.[facility]In the event this information is protected by the Federal Confidentiality of Alcohol and Drug Abuse Patient Records regulations: The Federal rules restrict any use of the information to criminally investigate or prosecute any alcohol or drug abuse patient.[facility]In the event this information is protected by the Federal Confidentiality of Alcohol and Drug Abuse Patient Records regulations: The Federal rules restrict any use of the information to criminally investigate or prosecute any alcohol or drug abuse patient.[facility]In the event this information is protected by the Federal Confidentiality of Alcohol and Drug Abuse Patient Records regulations: The Federal rules restrict any use of the information to criminally investigate or prosecute any alcohol or drug abuse patient.[facility]In the event this information is protected by the Federal Confidentiality of Alcohol and Drug Abuse Patient Records regulations: The Federal rules restrict any use of the information to criminally investigate or prosecute any alcohol or drug abuse patient.[facility]In the event this information is protected by the Federal Confidentiality of Alcohol and Drug Abuse Patient Records regulations: The Federal rules restrict any use of the information to criminally investigate or prosecute any alcohol or drug abuse patient.[facility]In the event this information is protected by the Federal Confidentiality of Alcohol and Drug Abuse Patient Records regulations: The Federal rules restrict any use of the information to criminally investigate or prosecute any alcohol or drug abuse patient.[facility]In the event this information is protected by the Federal Confidentiality of Alcohol and Drug Abuse Patient Records regulations: The Federal rules restrict any use of the information to criminally investigate or prosecute any alcohol or drug abuse patient.[facility]In the event this information is protected by the Federal Confidentiality of Alcohol and Drug Abuse Patient Records regulations: The Federal rules restrict any use of the information to criminally investigate or prosecute any alcohol or drug abuse patient.[facility]In the event this information is protected by the Federal Confidentiality of Alcohol and Drug Abuse Patient Records regulations: The Federal rules restrict any use of the information to criminally investigate or prosecute any alcohol or drug abuse patient.[facility]In the event this information is protected by the Federal Confidentiality of Alcohol and Drug Abuse Patient Records regulations: The Federal rules restrict any use of the information to criminally investigate or prosecute any alcohol or drug abuse patient.[facility]In the event this information is protected by the Federal Confidentiality of Alcohol and Drug Abuse Patient Records regulations: The Federal rules restrict any use of the information to criminally investigate or prosecute any alcohol or drug abuse patient.[facility]In the event this information is protected by the Federal Confidentiality of Alcohol and Drug Abuse Patient Records regulations: The Federal rules restrict any use of the information to criminally investigate or prosecute any alcohol or drug abuse patient.[facility]In the event this information is protected by the Federal Confidentiality of Alcohol and Drug Abuse Patient Records regulations: The Federal rules restrict any use of the information to criminally investigate or prosecute any alcohol or drug abuse patient.[facility]In the event this information is protected by the Federal Confidentiality of Alcohol and Drug Abuse Patient Records regulations: The Federal rules restrict any use of the information to criminally investigate or prosecute any alcohol or drug abuse patient.[facility]In the event this information is protected by the Federal Confidentiality of Alcohol and Drug Abuse Patient Records regulations: The Federal rules restrict any use of the information to criminally investigate or prosecute any alcohol or drug abuse patient.[facility]In the event this information is protected by the Federal Confidentiality of Alcohol and Drug Abuse Patient Records regulations: The Federal rules restrict any use of the information to criminally investigate or prosecute any alcohol or drug abuse patient.[facility]In the event this information is protected by the Federal Confidentiality of Alcohol and Drug Abuse Patient Records regulations: The Federal rules restrict any use of the information to criminally investigate or prosecute any alcohol or drug abuse patient.[facility]In the event this information is protected by the Federal Confidentiality of Alcohol and Drug Abuse Patient Records regulations: The Federal rules restrict any use of the information to criminally investigate or prosecute any alcohol or drug abuse patient.[facility]In the event this information is protected by the Federal Confidentiality of Alcohol and Drug Abuse Patient Records regulations: The Federal rules restrict any use of the information to criminally investigate or prosecute any alcohol or drug abuse patient.[facility]In the event this information is protected by the Federal Confidentiality of Alcohol and Drug Abuse Patient Records regulations: The Federal rules restrict any use of the information to criminally investigate or prosecute any alcohol or drug abuse patient.[facility]In the event this information is protected by the Federal Confidentiality of Alcohol and Drug Abuse Patient Records regulations: The Federal rules restrict any use of the information to criminally investigate or prosecute any alcohol or drug abuse patient.[facility]In the event this information is protected by the Federal Confidentiality of Alcohol and Drug Abuse Patient Records regulations: The Federal rules restrict any use of the information to criminally investigate or prosecute any alcohol or drug abuse patient.[facility] [facility] HospitalIn the event this information is protected by the Federal Confidentiality of Alcohol and Drug Abuse Patient Records regulations: The Federal rules restrict any use of the information to criminally investigate or prosecute any alcohol or drug abuse patient.[facility] the event this information is protected by the Federal Confidentiality of Alcohol and Drug Abuse Patient Records regulations: The Federal rules restrict any use of the information to criminally investigate or prosecute any alcohol or drug abuse patient.[facility] the event this information is protected by the Federal Confidentiality of Alcohol and Drug Abuse Patient Records regulations: The Federal rules restrict any use of the information to criminally investigate or prosecute any alcohol or drug abuse patient.[facility] the event this information is protected by the Federal Confidentiality of Alcohol and Drug Abuse Patient Records regulations: The Federal rules restrict any use of the information to criminally investigate or prosecute any alcohol or drug abuse patient.[facility] the event this information is protected by the Federal Confidentiality of Alcohol and Drug Abuse Patient Records regulations: The Federal rules restrict any use of the information to criminally investigate or prosecute any alcohol or drug abuse patient.[facility] the event this information is protected by the Federal Confidentiality of Alcohol and Drug Abuse Patient Records regulations: The Federal rules restrict any use of the information to criminally investigate or prosecute any alcohol or drug abuse patient.[facility] the event this information is protected by the Federal Confidentiality of Alcohol and Drug Abuse Patient Records regulations: The Federal rules restrict any use of the information to criminally investigate or prosecute any alcohol or drug abuse patient.[facility] the event this information is protected by the Federal Confidentiality of Alcohol and Drug Abuse Patient Records regulations: The Federal rules restrict any use of the information to criminally investigate or prosecute any alcohol or drug abuse patient.[facility] the event this information is protected by the Federal Confidentiality of Alcohol and Drug Abuse Patient Records regulations: The Federal rules restrict any use of the information to criminally investigate or prosecute any alcohol or drug abuse patient.[facility] the event this information is protected by the Federal Confidentiality of Alcohol and Drug Abuse Patient Records regulations: The Federal rules restrict any use of the information to criminally investigate or prosecute any alcohol or drug abuse patient.[facility]In the event this information is protected by the Federal Confidentiality of Alcohol and Drug Abuse Patient Records regulations: The Federal rules restrict any use of the information to criminally investigate or prosecute any alcohol or drug abuse patient.[facility] HospitalIn the event this information is protected by the Federal Confidentiality of Alcohol and Drug Abuse Patient Records regulations: The Federal rules restrict any use of the information to criminally investigate or prosecute any alcohol or drug abuse patient.[facility] the event this information is protected by the Federal Confidentiality of Alcohol and Drug Abuse Patient Records regulations: The Federal rules restrict any use of the information to criminally investigate or prosecute any alcohol or drug abuse patient.[facility]In the event this information is protected by the Federal Confidentiality of Alcohol and Drug Abuse Patient Records regulations: The Federal rules restrict any use of the information to criminally investigate or prosecute any alcohol or drug abuse patient.[facility]In the event this information is protected by the Federal Confidentiality of Alcohol and Drug Abuse Patient Records regulations: The Federal rules restrict any use of the information to criminally investigate or prosecute any alcohol or drug abuse patient.[facility] HospitalIn the event this information is protected by the Federal Confidentiality of Alcohol and Drug Abuse Patient Records regulations: The Federal rules restrict any use of the information to criminally investigate or prosecute any alcohol or drug abuse patient.[facility] HospitalIn the event this information is protected by the Federal Confidentiality of Alcohol and Drug Abuse Patient Records regulations: The Federal rules restrict any use of the information to criminally investigate or prosecute any alcohol or drug abuse patient.[facility] HospitalIn the event this information is protected by the Federal Confidentiality of Alcohol and Drug Abuse Patient Records regulations: The Federal rules restrict any use of the information to criminally investigate or prosecute any alcohol or drug abuse patient.[facility] Reason for Visit (unrecogniz ed section and content) Reason Comments Follow Up Specialty Diagnoses / Procedures Referred By Contac t Referred To Contact [facility] Diagnoses Chronic diastolic (congestive) heart failure (HCC) Procedures ECHO ECHO TTHRC R-T 2D W/WOM-MODE COMPL SPEC&COLR D Paul Bautista MD [address] [place] [address] Phone: tel: fax: [facility] [address] [address] Referral ID Status Reason Start Date Expiration Date V isits Requested Visits Authorized [id number] Closed Auto-Generate d Referral 09/13/2024 09/13/2025 1 1 Reason Comments Physical Therapy Specialty Diagnoses / Procedures Referred By Contac t Referred To Contact [facility] Diagnoses Chronic thoracic back pain, unspecified back pain laterality 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 Procedures CONSULT TO PHYSICAL THERAPY PHYSICAL THERAPY [facility] HIGH COMPLEX 45 MINS Migel Garcia PA-C [address] [place] [address] [facility] [address] [address] Referral ID Status Reason Start Date Expiration Date Visits Requested Visits Authorized [id number] Authorized PCP Requested Referral Auto-Generate d Referral 08/05/2024 99 99 Reason Comments Occupational Therapy Specialty Diagnoses / Procedures Referred By Contac t Referred To Contact [facility] Diagnoses Primary osteoarthritis of first carpometacarpal joint of left hand Procedures CONSULT TO [facility] SPECIALIST OCCUPATIONAL THERAPY EVAL HIGH COMPLEX 60 MINS Joni Lew PA-C [address] [place] [address] [facility] [address] [address] Referral ID Status Reason Start Date Expiration Date Visits Requested Visits Authorized [id number] Authorized PCP Requested Referral Auto-Generate d Referral 12/09/2021 12/09/2022 99 99 Reason Onset Date Comments Occupational Therapy No Show 01/27/2022 No show Reason Comments OT Progress Note Reason Comments Results Reason Comments Follow Up Reason Comments New Patient Anemia Specialty Diagnoses / Procedures Referred By Contac t Referred To Contact Hematology Diagnoses Anemia, unspecified type Procedures CONSULT TO HEMATOLOGY OFFICE/OUTPATIENT [facility] 60-74 MINUTES Susannah Clemente MD [address] [place] [address] Referral ID Status Reason Start Date Expiration Date V isits Requested Visits Authorized [id number] Closed PCP Requested Referral 02/19/2022 05/20/2022 1 1 Reason Comments Hair Loss Reason Comments Consult Specialty Diagnoses / Procedures Referred By Contac t Referred To Contact Cardiology Diagnoses 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 disease, or chronic kidney disease (HCC) Procedures CONSULT TO CARDIOLOGY OFFICE/OUTPATIENT [facility] 60-74 MINUTES Susannah Clemente MD [address] [place] [address] Referral ID Status Reason Start Date Expiration Date V isits Requested Visits Authorized [id number] Closed PCP Requested Referral 04/14/2022 04/14/2023 1 1 Reason Comments Follow Up Reason Onset Date Comments Refill Request 08/06/2022 Reason Comments Lab Orders Healthcare Economics Manager - Other Reason Comments Established Patient Reason [...] HIGH COMPLEX 45 MINS Susannah Clemente MD [address] [place] [address] [facility] [address] [place] [address] Referral ID Status Reason Start Date Expiration Date Visits Requested Visits Authorized [id number] Authorized PCP Requested Referral Auto-Generate d Referral 03/08/2023 03/07/2024 99 99 Reason Comments Back Pain (Upper Back) Reason Comments Medicare Wellness Exam Reason Comments New Patient Low Back Pain Specialty Diagnoses / Procedures Referred By Contac t Referred To Contact [facility] Diagnoses Medicare annual wellness visit, subsequent Thoracogenic scoliosis, unspecified spinal region Chronic thoracic back pain, unspecified back pain laterality Procedures CONSULT TO [facility] OFFICE/OUTPATIENT [facility] 60-74 MINUTES Susannah Clemente MD [address] [place] [address] Referral ID Status Reason Start Date Expiration Date V isits Requested Visits Authorized [id number] Closed PCP Requested Referral 07/05/2023 07/04/2024 1 1 Specialty Diagnoses / Procedures Referred By Contac t Referred To Contact Diagnoses Medicare annual wellness visit, subsequent Decreased hearing of both ears Procedures HEARING TEST/AUDIOGRAM COMPRE AUDIOMETRY THRESHOLD EVAL Susannah Christine MD [address] [place] [address] [facility] [address] [place] [address] Referral ID Status Reason Start Date Expiration Date V isits Requested Visits Authorized [id number] Closed Auto-Generate d Referral 07/05/2023 10/03/2023 1 1 Reason Comments Refill Request Reason Comments Radiology US Specialty Diagnoses / Procedures Referred By Contac t Referred To Contact [facility] Diagnoses Epigastric abdominal tenderness without rebound tenderness Procedures US ABD RIGHT UPPER QUADRANT US ABDOMINAL REAL TIME W/IMAGE LIMITED Susannah Clemente MD [address] [place] [address] [facility] [place] [address] Referral ID Status Reason Start Date Expiration Date V isits Requested Visits Authorized [id number] Closed Auto-Generate d Referral 03/23/2023 04/21/2024 1 1 Reason Comments Radiology NM Specialty Diagnoses / Procedures Referred By Contac t Referred To Contact [facility] Diagnoses Medicare annual wellness visit, subsequent Epigastric pain Procedures NM HEPATOBILIARY W EF AND/OR RX HEPATOBIL SYST IMAG INC GB W/PHARMA INTERVENJ Susannah Clemente MD [address] [place] [address] [facility] [address] [place] [address] Referral ID Status Reason Start Date Expiration Date V isits Requested Visits Authorized [id number] Closed Auto-Generate d Referral 07/05/2023 08/03/2024 1 1 Specialty Diagnoses / Procedures Referred By Contac t Referred To Contact [facility] IMAG[facility] Diagnoses Urinary retention Procedures US PELVIS BLADDER US PELVIC NONOBSTETRIC IMAGE DCMTN LIMITED/F/U Susannah Clemente MD [address] [place] [address] [facility] [address] Referral ID Status Reason Start Date Expiration Date V isits Requested Visits Authorized [id number] Closed Auto-Generate d Referral 10/01/2022 10/31/2023 1 [...] Mammogram Specialty Diagnoses / Procedures Referred By Tanya rodriguez Referred To Contact [facility] Diagnoses Encounter for screening mammogram for breast cancer Procedures NICOLE SCREENING W MICHELLE SCREENING DIGITAL BREAST TOMOSYNTHESIS BI SCREENING MAMMOGRAPHY BI 2-VIEW BREAST INC CAD Alicia Hylton, JUSTEN.NARROW GAUGE OPERATOR [address] [place] [address] [facility] [address] [place] [address] Referral ID Status Reason Start Date Expiration Date V isits Requested Visits Authorized [id number] Closed Auto-Generate d Referral 12/31/2023 01/29/2025 1 [...] Expiration Date V isits Requested Visits Authorized [id number] Closed Auto-Generate d Referral 01/05/2023 02/04/2024 1 [...] 2-VIEW BREAST INC Ai Brar PA-C [address] [place] [address] [facility] [address] [place] [address] Referral ID Status Reason Start Date Expiration Date V isits Requested Visits Authorized Closed Auto-Generate d Referral 07/08/2021 08/07/2022 1 [...] Comments Nm Pet Request Reason Comments [facility] Reason Comments Counseling Patient was taken to the ED overnight. Has had what they think is a heart attack. They want to do a cardiac cath. Reason Comments Appointment Reason Comments Medication Problem Eliquis 5 mg, take o ne tablet twice daily Reason Comments Hospital F/U dizziness and nausea Reason Comments Patient Update Reason Comments Hospital F/U Care Teams (unrecognized sec tion and content) Team Status: Active Member Role Status Dates Dr. Susannah Clemetne MD Primary Care Provider Active Team Status: Inactive Member Role Status Dates Dr. Susannah Clemente MD Primary Care Provider Active Start: April 09, 2025 End: April 11, 2025 Serge Mcmullen MD Emergency Provider Active Star t: April 09, 2025 End: April 11, 2025 Dr. Migel Godoy DO Admit Provider Active Start: April 09, 2025 End: April 11, 2025 Dr. Migel Godoy DO Other Provider Active Start: April 09, 2025 End: April 11, 2025 Dr. Vasile Reyes MD Other Provider Active Start : April 09, 2025 End: April 11, 2025 Dr. Adilson Melchor DO Attending Provider Active Start: April 09, 2025 End: April 11, 2025 Team Status: Active Member Role Status Dates Dr. Susannah Clemente MD Primary Care Provider Active Start: April 10, 2025 Dr. Vasile Reyes MD Attending Provider Active S tart: April 10, 2025 Team Status: Active Member Role Status Dates Dr. Susannah Clemente MD Primary Care Provider Active Start: April 10, 2025 Dr. Richard Angelo MD Attending Provider Active S tart: April 10, 2025 Team Status: Active Member Role Status Dates Dr. Susannah Clemente MD Primary Care Provider Active Start: April 10, 2025 Serge Mcmullen MD Emergency Provider Active Star t: April 10, 2025 Dr. Migel Godoy DO Admit Provider Active Start: April 10, 2025 Dr. Migel Godoy DO Other Provider Active Start: April 10, 2025 Dr. Vasile Reyes MD Other Provider Active Start : April 10, 2025 Dr. Adilson Melchor DO Attending Provider Active Start: April 10, 2025 Dr. Adilson Melchor DO Other Provider Active Start: April 10, 2025 Team Status: Active Member Role Status Dates Dr. Susannah Clemente MD Primary Care Provider Active Start: April 11, 2025 Serge Mcmullen MD Emergency Provider Active Star t: April 11, 2025 Dr. Migel Godoy DO Admit Provider Active Start: April 11, 2025 Dr. Migel Godoy DO Other Provider Active Start: April 11, 2025 Dr. Vasile Reyes MD Other Provider Active Start : April 11, 2025 Dr. Adilson Melchor DO Attending Provider Active Start: April 11, 2025 Dr. Adilson Melchor DO Other Provider Active Start: April 11, 2025 Team Status: Active Member Role Status Dates Dr. Susannah Clemente MD Primary Care Provider Active Start: April 09, 2025 Serge Mcmullen MD Emergency Provider Active Star t: April 09, 2025 Dr. Migel Godoy DO Admit Provider Active Start: April 09, 2025 Dr. Migel Godoy DO Attending Provider Active Start: April 09, 2025 Creative Services Writer Relationship Specialty [place] [address] [place] [address] [id number] PCP - General Internal Medicine 11/10/16 Erwin Alfred MD [address] [place] [place] [address] Primary Staff Physician Cardiology 11/07/21 Creative Services Writer Relationship Specialty Start Date End Date Susannah Clemente MD [address] [place] [address] PCP - General Internal Medicine 11/10/16 Erwin Alfred MD [address] [place] [place] [address] Primary Staff Physician Cardiology 11/07/21 Creative Services Writer Relationship Specialty Start Date End Date Susannah Clemente MD [address] [place] [address] PCP - General Internal Medicine 11/10/16 Erwin Alfred MD [address] [place] [place] [address] Primary Staff Physician Cardiology 11/07/21 Creative Services Writer Relationship Specialty Start Date End Date Susannah Clemente MD [address] [place], [place] 154572 PCP - General Internal Medicine 11/10/16 Erwin Alfred MD [address] [place] [place] [address] Primary Staff Physician Cardiology 11/07/21 Creative Services Writer Relationship Specialty Start Date End Date Susannah Clemente MD [address] [place] [address] PCP - General Internal Medicine 11/10/16 Erwin Alfred MD [address] [place] [place] [address] Primary Staff Physician Cardiology 11/07/21 Creative Services Writer Relationship Specialty Start Date End Date Susannah Clemente MD [address] [place], [place] 925222 PCP - General Internal Medicine 11/10/16 Erwin Alfred MD [address] [address] Primary Staff Physician Cardiology 11/07/21 Creative Services Writer Relationship Specialty Start Date End Date Susannah Clemente MD [address] [place], [place] 196912 PCP - General Internal Medicine 11/10/16 Erwin Alfred MD [address] [address] Primary Staff Physician Cardiology 11/07/21 Creative Services Writer Relationship Specialty Start Date End Date Susannah Clemente MD [address] [place], [place] 553432 PCP - General Internal Medicine 11/10/16 Erwin Alfred MD [address] [address] Primary Staff Physician Cardiology 11/07/21 Creative Services Writer Relationship Specialty Start Date End Date Susannah Clemente MD [address] [place], [place] 391842 PCP - General Internal Medicine 11/10/16 Erwin Alfred MD [address] [address] Primary Staff Physician Cardiology 11/07/21 Creative Services Writer Relationship Specialty Start Date End Date Susannah Clemente MD [address] [place], [place] 827542 PCP - General Internal Medicine 11/10/16 Erwin Alfred MD [address] [place] [place] [address] Primary Staff Physician Cardiology 11/07/21 Creative Services Writer Relationship Specialty Start Date End Date Susannah Clemente MD [address] [place] [address] PCP - General Internal Medicine 11/10/16 Erwin Alfred MD [address] [place] [place] [address] Primary Staff Physician Cardiology 11/07/21 Creative Services Writer Relationship Specialty Start Date End Date Susannah Clemente MD [address] [place] [address] PCP - General Internal Medicine 11/10/16 Erwin Alfred MD [address] [place] [place] [address] Primary Staff Physician Cardiology 11/07/21 Creative Services Writer Relationship Specialty Start Date End Date Susannah Clemente MD [address] [place] [address] PCP - General Internal Medicine 11/10/16 Erwin Alfred MD [address] [place] [place] [address] Primary Staff Physician Cardiology 11/07/21 Creative Services Writer Relationship Specialty Start Date End Date Susannah Clemente MD [address] [place] [address] PCP - General Internal Medicine 11/10/16 Erwin Alfred MD [address] [place] [place] [address] Primary Staff Physician Cardiology 11/07/21 Creative Services Writer Relationship Specialty Start Date End Date Susannah Clemente MD [address] [place], [place] 656522 PCP - General Internal Medicine 11/10/16 Erwin Alfred MD [address] [address] Primary Staff Physician Cardiology 11/07/21 Creative Services Writer Relationship Specialty Start Date End Date Susannah Clemente MD [address] [place], [place] 770512 PCP - General Internal Medicine 11/10/16 Erwin Alfred MD [address] [address] Primary Staff Physician Cardiology 11/07/21 Creative Services Writer Relationship Specialty Start Date End Date Susannah Clemente MD [address] [place], [place] 774392 PCP - General Internal Medicine 11/10/16 Erwin Alfred MD [address] [address] Primary Staff Physician Cardiology 11/07/21 Creative Services Writer Relationship Specialty Start Date End Date Susannah Clemente MD [address] [place], [place] 379742 PCP - General Internal Medicine 11/10/16 Erwin Alfred MD [address] [address] Primary Staff Physician Cardiology 11/07/21 Creative Services Writer Relationship Specialty Start Date End Date Susannah Clemente MD [address] [place], [place] 990802 PCP - General Internal Medicine 11/10/16 Erwin Alfred MD [address] [place] [place] [address] Primary Staff Physician Cardiology 11/07/21 Creative Services Writer Relationship Specialty Start Date End Date Susannah Clemente MD [address] [place] [address] PCP - General Internal Medicine 11/10/16 Erwin Alfred MD [address] [place] [place] [address] Primary Staff Physician Cardiology 11/07/21 Creative Services Writer Relationship Specialty Start Date End Date Susannah Clemente MD [address] [place] [address] PCP - General Internal Medicine 11/10/16 Erwin Alfred MD [address] [place] [place] [address] Primary Staff Physician Cardiology 11/07/21 Creative Services Writer Relationship Specialty Start Date End Date Susannah Clemente MD PCP - General Internal Medicine 11/10/16 Erwin Alfred MD [address] [place] [place] [address] Primary Staff Physician Cardiology 11/07/21 Creative Services Writer Relationship Specialty Start Date End Date Susannah Clemente MD PCP - General Internal Medicine 11/10/16 Erwin Alfred MD [address] [place] [place] [address] Primary Staff Physician Cardiology 11/07/21 Creative Services Writer Relationship Specialty Start Date End Date Susannah Clemente MD PCP - General Internal Medicine 11/10/16 Erwin Alfred MD [address] [place] [place] [address] Primary Staff Physician Cardiology 11/07/21 Creative Services Writer Relationship Specialty Start Date End Date Susannah Clemente MD PCP - General Internal Medicine 11/10/16 Erwin Alfred MD [address] [place] [place] [address] Primary Staff Physician Cardiology 11/07/21 Creative Services Writer Relationship Specialty Start Date End Date Susannah Clemente MD PCP - General Internal Medicine 11/10/16 Erwin Alfred MD [address] [place] [place] [address] Primary Staff Physician Cardiology 11/07/21 Creative Services Writer Relationship Specialty Start Date End Date Susannah Clemente MD PCP - General Internal Medicine 11/10/16 Erwin Alfred MD [address] [place] [place] [address] Primary Staff Physician Cardiology 11/07/21 Creative Services Writer Relationship Specialty Start Date End Date Susannah Clemente MD PCP - General Internal Medicine 11/10/16 Erwin Alfred MD [address] [place] [place] [address] Primary Staff Physician Cardiology 11/07/21 Creative Services Writer Relationship Specialty Start Date End Date Susannah Clemente MD PCP - General Internal Medicine 11/10/16 Erwin Alfred MD [address] [place] [place] [address] Primary Staff Physician Cardiology 11/07/21 Creative Services Writer Relationship Specialty Start Date End Date Susannah Clemente MD PCP - General Internal Medicine 11/10/16 Erwin Alfred MD [address] [place] [place] [address] Primary Staff Physician Cardiology 11/07/21 Creative Services Writer Relationship Specialty Start Date End Date Susannah Clemente MD PCP - General Internal Medicine 11/10/16 Erwin Alfred MD [address] [place] [place] [address] Primary Staff Physician Cardiology 11/07/21 Creative Services Writer Relationship Specialty Start Date End Date Susannah Clemente MD PCP - General Internal Medicine 11/10/16 Erwin Alfred MD [address] [place] [place] [address] Primary Staff Physician Cardiology 11/07/21 Creative Services Writer Relationship Specialty Start Date End Date Susannah Clemente MD PCP - General Internal Medicine 11/10/16 Erwin Alfred MD [address] [place], [place] [address] Primary Staff Physician Cardiology 11/07/21 Creative Services Writer Relationship Specialty Start Date End Date Susannah Clemente MD PCP - General Internal Medicine 11/10/16 Erwin Alfred MD [address] [place] [id number] Primary Staff Physician Cardiology 11/07/21 Creative Services Writer Relationship Specialty Start Date End Date Susannah Clemente MD PCP - General Internal Medicine 11/10/16 Erwin Alfred MD [address] [place], [place] 8856395 Primary Staff Physician Cardiology 11/07/21 Creative Services Writer Relationship Specialty Start Date End Date Susannah Clemente MD PCP - General Internal Medicine 11/10/16 Erwin Alfred MD [address] [place], [place] [address] Primary Staff Physician Cardiology 11/07/21 Creative Services Writer Relationship Specialty Start Date End Date Susannah Clemente MD PCP - General Internal Medicine 11/10/16 Erwin Alfred MD [address] [place] [place] [address] Primary Staff Physician Cardiology 11/07/21 Creative Services Writer Relationship Specialty Start Date End Date Susannah Clemente MD PCP - General Internal Medicine 11/10/16 Erwin Alfred MD [address] [place] [address] Primary Staff Physician Cardiology 11/07/21 Team Status: Inactive Member Role Status Dates Dr. Susannah Clemente MD Primary Care Provider Active Dr. Alberto Bernal MD Emergency Provider Active Creative Services Writer Relationship Specialty Start Date End Date Susannah Clemente MD PCP - General Internal Medicine 11/10/16 Erwin Alfred MD [address] [place] [address] Primary Staff Physician Cardiology 11/07/21 Creative Services Writer Relationship Specialty Start Date End Date Susannah Clemente MD PCP - General Internal Medicine 11/10/16 Erwin Alfred MD [address] [place] [address] Primary Staff Physician Cardiology 11/07/21 Creative Services Writer Relationship Specialty Start Date End Date Susannah Clemente MD PCP - General Internal Medicine 11/10/16 Erwin Alfred MD [address] [place] [address] Primary Staff Physician Cardiology 11/07/21 Creative Services Writer Relationship Specialty Start Date End Date Susannah Clemente MD PCP - General Internal Medicine 11/10/16 Erwin Alfred MD [address] [place] [address] Primary Staff Physician Cardiology 11/07/21 Creative Services Writer Relationship Specialty Start Date End Date Susannah Clemente MD PCP - General Internal Medicine 11/10/16 Erwin Alfred MD [address] [place] [address] Primary Staff Physician Cardiology 11/07/21 Creative Services Writer Relationship Specialty Start Date End Date Susannah Clemente MD PCP - General Internal Medicine 11/10/16 Erwin Alfred MD [address] [place] [address] Primary Staff Physician Cardiology 11/07/21 Creative Services Writer Relationship Specialty Start Date End Date Susannah Clemente MD PCP - General Internal Medicine 11/10/16 Erwin Alfred MD [address] [place], [place] [id number] Primary Staff Physician Cardiology 11/07/21 Creative Services Writer Relationship Specialty Start Date End Date Susannah Clemente MD PCP - General Internal Medicine 11/10/16 Erwin Alfred MD [address] [place], [place] [id number] Primary Staff Physician Cardiology 11/07/21 Creative Services Writer Relationship Specialty Start Date End Date Susannah Clemente MD PCP - General Internal Medicine 11/10/16 Erwin Alfred MD [address] [place] [id number] Primary Staff Physician Cardiology 11/07/21 Creative Services Writer Relationship Specialty Start Date End Date Susannah Clemente MD PCP - General Internal Medicine 11/10/16 Erwin Alfred MD [address] [place] [id number] Primary Staff Physician Cardiology 11/07/21 Creative Services Writer Relationship Specialty Start Date End Date Susannah Clemente MD PCP - General Internal Medicine 11/10/16 Erwin Alfred MD [address] [place], [place] [id number] Primary Staff Physician Cardiology 11/07/21 Creative Services Writer Relationship Specialty Start Date End Date Susannah Clemente MD PCP - General Internal Medicine 11/10/16 Erwin Alfred MD [address] [place] [address] Primary Staff Physician Cardiology 11/07/21 Creative Services Writer Relationship Specialty Start Date End Date Susannah Clemente MD PCP - General Internal Medicine 11/10/16 Erwin Alfred MD [address] [place] [address] Primary Staff Physician Cardiology 11/07/21 Creative Services Writer Relationship Specialty Start Date End Date Susannah Clemente MD PCP - General Internal Medicine 11/10/16 Erwin Alfred MD [address] [place] [address] Primary Staff Physician Cardiology 11/07/21 Creative Services Writer Relationship Specialty Start Date End Date Susannah Clemente MD PCP - General Internal Medicine 11/10/16 Erwin Alfred MD [address] [place] [address] Primary Staff Physician Cardiology 11/07/21 Creative Services Writer Relationship Specialty Start Date End Date Susannah Clemente MD PCP - General Internal Medicine 11/10/16 Erwin Alfred MD [address] [place], [place] [id number] Primary Staff Physician Cardiology 11/07/21 Creative Services Writer Relationship Specialty Start Date End Date Susannah Clemente MD PCP - General Internal Medicine 11/10/16 Erwin Alfred MD [address] [place] [address] Primary Staff Physician Cardiology 11/07/21 Creative Services Writer Relationship Specialty Start Date End Date Susannah Clemente MD PCP - General Internal Medicine 11/10/16 Erwin Alfred MD [address] [place] [id number] Primary Staff Physician Cardiology 11/07/21 Creative Services Writer Relationship Specialty Start Date End Date Susannah Clemente MD PCP - General Internal Medicine 11/10/16 Creative Services Writer Relationship Specialty Start Date End Date Susannah Clemente MD PCP - General Internal Medicine 11/10/16 Creative Services Writer Relationship Specialty Start Date End Date Susannah Clemente MD PCP - General Internal Medicine 11/10/16 Creative Services Writer Relationship Specialty Start Date End Date Susannah Clemente MD PCP - General Internal Medicine 11/10/16 Erwin Alfred MD [address] [place] [address] Primary Staff Physician Cardiology 11/07/21 Creative Services Writer Relationship Specialty Start Date End Date Susannha Clemente MD PCP - General Internal Medicine 11/10/16 Erwin Alfred MD [address] [place] [address] Primary Staff Physician Cardiology 11/07/21 Creative Services Writer Relationship Specialty Start Date End Date Susannah Clemente MD PCP - General Internal Medicine 11/10/16 Erwin Alfred MD [address] [place] [address] Primary Staff Physician Cardiology 11/07/21 Creative Services Writer Relationship Specialty Start Date End Date Susannah Clemente MD PCP - General Internal Medicine 11/10/16 Erwin Alfred MD [address] [place] [address] Primary Staff Physician Cardiology 11/07/21 Creative Services Writer Relationship Specialty Start Date End Date Susannah Clemente MD PCP - General Internal Medicine 11/10/16 Erwin Alfred MD [address] [place] [address] Primary Staff Physician Cardiology 11/07/21 Creative Services Writer Relationship Specialty Start Date End Date Susannah Clemente MD PCP - General Internal Medicine 11/10/16 Erwin Alfred MD [address] [place] [id number] Primary Staff Physician Cardiology 11/07/21 Ruby Hurst PA-C [address] [place] [address] Manager Mail Internal Medicine 09/25/24 Creative Services Writer Relationship Specialty Start Date End Date Susannah Clemente MD PCP - General Internal Medicine 11/10/16 Erwin Alfred MD [address] [place] [address] Primary Staff Physician Cardiology 11/07/21 Ruby Hurst PA-C [address] [place] [address] Manager Mail Internal Medicine 09/25/24 Creative Services Writer Relationship Specialty Start Date End Date Susannah Clemente MD PCP - General Internal Medicine 11/10/16 Erwin Alfred MD [address] [place] [address] Primary Staff Physician Cardiology 11/07/21 Ruby Hurst PA-C [address] [place] [address] Manager Mail Internal Medicine 09/25/24 Creative Services Writer Relationship Specialty Start Date End Date Susannah Clemente MD PCP - General Internal Medicine 11/10/16 Erwin Alfred MD [address] [place] [address] Primary Staff Physician Cardiology 11/07/21 Ruby Hurst PA-C [address] [place] [address] Manager Mail Internal Medicine 09/25/24 Creative Services Writer Relationship Specialty Start Date End Date Susannah Clemente MD PCP - General Internal Medicine 11/10/16 Erwni Alfred MD [address] [place] [address] Primary Staff Physician Cardiology 11/07/21 Ruby Hurst PA-C [address] [place] [address] Manager Mail Internal Medicine 09/25/24 Creative Services Writer Relationship Specialty Start Date End Date Susannah Clemente MD PCP - General Internal Medicine 11/10/16 Erwin Alfred MD [address] [place] [address] Primary Staff Physician Cardiology 11/07/21 Ruby Hurst PA-C [facility] [place] [address] Manager Mail Internal Medicine 09/25/24 Creative Services Writer Relationship Specialty Start Date End Date Susannah Clemente MD PCP - General Internal Medicine 11/10/16 Erwin Alfred MD [address] [place], [place] [id number] Primary Staff Physician Cardiology 11/07/21 Ruby Hurst PA-C [address] [place] [address] Manager Mail Internal Medicine 09/25/24 Creative Services Writer Relationship Specialty Start Date End Date Susannah Clemente MD PCP - General Internal Medicine 11/10/16 Erwin Alfred MD [address] [place] [address] Primary Staff Physician Cardiology 11/07/21 Ruby Hurst PA-C [address] [place] [address] Manager Mail Internal Medicine 09/25/24 Creative Services Writer Relationship Specialty Start Date End Date Susannah Clemente MD PCP - General Internal Medicine 11/10/16 Erwin Alfred MD [address] [place] [address] Primary Staff Physician Cardiology 11/07/21 Ruby Hurst PA-C [address] [place] [address] Manager Mail Internal Medicine 09/25/24 Creative Services Writer Relationship Specialty Start Date End Date Susannah Clemente MD PCP - General Internal Medicine 11/10/16 Erwin Alfred MD [address] [place] [address] Primary Staff Physician Cardiology 11/07/21 Ruby Hurst PA-C [address] [place] [address] Manager Mail Internal Medicine 09/25/24 Creative Services Writer Relationship Specialty Start Date End Date Susannah Clemente MD PCP - General Internal Medicine 11/10/16 Erwin Alfred MD [address] [place] [address] Primary Staff Physician Cardiology 11/07/21 Ruby Hurst PA-C [address] [place] [address] Manager Mail Internal Medicine 09/25/24 Creative Services Writer Relationship Specialty Start Date End Date Susannah Clemente MD PCP - General Internal Medicine 11/10/16 Erwin Alfred MD [address] [place] [address] Primary Staff Physician Cardiology 11/07/21 Ruby Hurst PA-C [address] [place] [address] Manager Mail Internal Medicine 09/25/24 Creative Services Writer Relationship Specialty Start Date End Date Susannah Clemente MD PCP - General Internal Medicine 11/10/16 Erwin Alfred MD [address] [place] [address] Primary Staff Physician Cardiology 11/07/21 Rbuy Hurst PA-C [address] [place] [address] Manager Mail Internal Medicine 09/25/24 Creative Services Writer Relationship Specialty Start Date End Date Susannah Clemente MD PCP - General Internal Medicine 11/10/16 Erwin Alfred MD [address] [place] [address] Primary Staff Physician Cardiology 11/07/21 Ruby Hurst PA-C [address] [place] [address] Manager Mail Internal Medicine 09/25/24 Creative Services Writer Relationship Specialty Start Date End Date Susannah Clemente MD PCP - General Internal Medicine 11/10/16 Erwin Alfred MD [address] [place] [address] Primary Staff Physician Cardiology 11/07/21 Ruby Hurst PA-C [facility] [place] [address] Manager Mail Internal Medicine 09/25/24 Creative Services Writer Relationship Specialty Start Date End Date Susannah Clemente MD PCP - General Internal Medicine 11/10/16 Erwin Alfred MD [address] [place] [address] Primary Staff Physician Cardiology 11/07/21 Ruby Hurst PA-C [facility] [place] [address] Manager Mail Internal Medicine 09/25/24 Creative Services Writer Relationship Specialty Start Date End Date Susannah Clemente MD PCP - General Internal Medicine 11/10/16 Erwin Alfred MD [address] [place] [address] Primary Staff Physician Cardiology 11/07/21 Ruby Hurst PA-C [address] [place] [address] Manager Mail Internal Medicine 09/25/24 Creative Services Writer Relationship Specialty Start Date End Date Susannah Clemente MD PCP - General Internal Medicine 11/10/16 Erwin Alfred MD [address] [place] [address] Primary Staff Physician Cardiology 11/07/21 Ruby Hurst PA-C [address] [place] [address] Manager Mail Internal Medicine 09/25/24 Goals (unrecognized section and [...] BE BASED ON THE PRIMARY CLINICAL RECORDS. [employer] provides no warranty or guarantee of the accuracy or completeness of information in this document.
[2025-04-27] MEDS: 0.9% Saline Lock 10 ML Syringe IV (21:49)
[2025-04-27] MEDS: Lactated Ringers 1,000 ML 150 ML IV (21:49)
[2025-04-27] MEDS: MELATONIN 10 MG TABLET 5 MG PO (21:51)
[2025-04-27] MEDS: APIXABAN 5 MG TABLET PO (21:51)
[2025-04-28] VITALS (8 sets, daily range): BP systolic 121–182; BP diastolic 64–82; PULSE 64–83; RESP 14–16; TEMP 36.4–36.9; O2SAT 90–96
[2025-04-28] MEDS: 0.9% Saline Lock 10 ML Syringe IV ×3 (02:56→21:18)
[2025-04-28 06:03] LABS: Hematocrit 30.1 % (37-47); Hemoglobin 10.2 g/dL (12.0-15.0); Mean Corp Hgb Conc 33.9 g/dL (32-36); Mean Corpuscular Volume 93.2 fL (81-99); Mean Platelet Vol. 9.5 fl (6.2-12.0); Platelet Count 213 K/mm3 (150-450); RBC Distribution Width CV 12.6 % (11.6-14.6); RBC Distribution Width SD 43.0 fl (35.1-43.9); Red Blood Count 3.23 M/mm3 (4.2-5.4); White Blood Count 4.3 K/mm3 (4.4-11.0)
[2025-04-28 06:34] LABS: Anion Gap 8 (5-15); BUN 34 mg/dL (4-19); BUN/Creat Ratio 29.1 RATIO (10-20); Calcium,Total 9.2 mg/dL (7.6-11.0); Carbon Dioxide 27.4 mmol/L (21.0-32.0); Chloride 104 mmol/L (98-108); Estimated Creatinine Clearance 29.75 ml/min (50-250); Glucose 90 mg/dL (70-99); Potassium 4.3 mmol/L (3.3-5.1)
--- NOTE | 2025-04-28 07:09 | PCM.PN.HOSP ---
Reason for Visit Reason for Visit: Diagnoses Orthostatic hypotension (04/27/25) Acute kidney failure, unspecified (04/27/25) Hypoxemia (04/27/25) Subjective Subjective Patient notes feeling significantly improved since initial ED arrival. She denies any lightheadedness or dizziness. Repeat orthostatics this morning however significant with laying systolic 180, seated systolic 156 and standing systolic 130 although she denies any significant symptoms which she had the day prior. Patient also with ambulatory oxygenation assessment with no need for any supplementation. Discussed patient renal function improvement with plan for continue judicious IV fluids with repeat orthostatics later in the day and if improved would plan follow-up outpatient with repeat assessment however if ongoing significant orthostatics would plan continue judicious hydration overnight and possible reassessment for discharge 04/29/2025 which patient is amenable. Patient denies fevers, chills, nausea, emesis, abdominal pain, chest pain or dyspnea. Objective Data Objective Data Vital Signs: Vital Signs Temp Pulse Resp BP Pulse Ox O2 Del Method 97.7 F L 70 15 148/67 H 92 Room Air 04/28/25 05:50 04/28/25 05:50 04/28/25 05:50 04/28/25 05:50 04/28/25 05:50 04/28/25 05:50 Oxygen Delivery Method Room Air Weight: 125 lb Body Mass Index (BMI) 20.1 Intake & Output: Intake and Output for Last 24 Hours 04/26/25 04/27/25 04/28/25 23:59 23:59 23:59 Intake Total 1200 / 1200 990 / 990 Balance 1200 / 1200 990 / 990 Lab / Micro Data 04/28/25 05:30 04/28/25 05:30 Labs: Laboratory Results - last 24 hr 04/27/25 15:29: WBC 4.5, RBC 3.65 L, Hgb 11.4 L, Hct 34.4 L, MCV 94.2, MCH 31.2, MCHC 33.1, RDW Std Deviation 43.3, RDW Coeff of Gabriella 12.5, Plt Count 245, MPV 9.6, Immature Gran % (Auto) 0.200, Neut % (Auto) 49.1, Lymph % (Auto) 32.8, [place] % (Auto) 12.7 H, Eos % (Auto) 4.5, Baso % (Auto) 0.7, Absolute Neuts (auto) 2.2, Absolute Lymphs (auto) 1.47, Nucleated RBC % 0, Sodium 140, Potassium 4.3, Chloride 100, Carbon Dioxide 28.2, Anion Gap 12, BUN 44 H, Creatinine 1.78 H, Estim Creat Clear Calc 20.09 L, Est GFR (MDRD) Non-Af 27 L, BUN/Creatinine Ratio 24.7 H, Glucose 110 H, Calcium 10.1, Troponin T High Sens 89 H* D, NT pro BNP II 614 04/27/25 17:34: Troponin T Hi Sens 2 Hr 84 H* 04/28/25 05:30: WBC 4.3 L, RBC 3.23 L, Hgb 10.2 L, Hct 30.1 L, MCV 93.2, MCH 31.6, MCHC 33.9, RDW Std Deviation 43.0, RDW Coeff of Gabriella 12.6, Plt Count 213, MPV 9.5, Sodium 140, Potassium 4.3, Chloride 104, Carbon Dioxide 27.4, Anion Gap 8, BUN 34 H, Creatinine 1.17, Estim Creat Clear Calc 29.75 L, Est GFR (MDRD) Non-Af 45 L, BUN/Creatinine Ratio 29.1 H, Glucose 90, Calcium 9.2 Radiography Diagnostic Testing: Radiology Impression Chest X-Ray 04/27/25 15:16 IMPRESSION: No evidence of acute cardiopulmonary disease. Reading Location: [facility] Chest CTA 04/27/25 17:29 IMPRESSION: No pulmonary embolism. Left kidney indeterminate lesion. Further characterization with nonemergent ultrasound is recommended to determine if it is cystic. Chronic and ancillary findings as above. Reading Location: [id number] Physical Exam Narrative Physical Examination: General: Awake, alert, oriented x 3 and cooperative, laying in the PCU bed, notes feeling improved since initial ED arrival, no recurrent lightheadedness or dizziness. Skin: Normal color, normal turgor, no icterus, no cyanosis except occasional stage ecchymoses, abrasion. HEENT: AT/NC, EOMI, PERRLA, MMM. Lungs: Mildly diminished, greater bases, proper effort, no rales, ronchi or wheezing. Heart: Regular rate and rhythm; no gallop, rub audible. Abdomen: Soft, NTTP, ND, normal BS. Extremities: No cyanosis, no clubbing, no significant distal edema noted. Neurological: Patient awake, alert, oriented as noted, cognitive function intact; pupils equally reactive to light and accommodation, cranial nerves grossly normal, moving all 4 extremities, no focal deficits, strength improved, mildly globally decreased, moving the bed with ease. Psychiatric: Affect appears rested, notes eager for discharge but awaiting further evaluation as orthostatics have been notable, no acute evidence of depressive or anxiety feelings. Assessment & Plan Assessment/Plan (1) BRIGHT (acute kidney injury): (2) Orthostatic hypotension: (3) Hypoxia: PLAN: Plan The patient is an 89 y/o F w/ PMHx: HFpEF, HTN, HLD, Hx recent LLE DVT on eliquis, Hypothyroidism, CKD stage IIIb per record, Hx Breast CA unclear type in remission who presents to the [facility] ED on 04/27/25 secondary to significant dizziness and lightheadedness. #1. Acute kidney injury on CKD stage IIIb secondary to suspected dehydration/hypovolemia as well as nephrotoxic medication associated with orthostatic hypotension: Admitted to PCU, maintained on monitor, very judiciously hydrated, admission BUN/creatinine 44/1.78, baseline creatinine primarily 1.1-1.2, notable orthostatics in the ED with standing with symptomatic lightheadedness at that time, nephrotoxic medication held including indapamide and dapagliflozin. 04/28/2020 5 repeat BUN/creatinine 30/1.17, GFR 45, notably improved. 04/28/25 AM repeat orthostatics however significant with again laying systolic 180, seated 156 and standing 130 however at this time patient was not symptomatic. Given this we will continue to judiciously hydrate and repeat orthostatics later in the day 04/28/25 and if this continues to improve would plan possible discharge to home otherwise may need to reassess with repeat orthostatics 04/29/25 AM. #2. Exertional hypoxia of unclear etiology: Upon ED arrival patient with O2 saturation 95% on room air with good activity desaturated down to 85% requiring 2 L nasal cannula, CTPA with no obvious acute findings, recent echocardiogram 04/10/25 with mild pulmonary hypertension otherwise no overt concerning findings. Recent cardiac catheterization same day with noted nonobstructive coronary arteries with recommendation for ongoing medical management. 03/29/2025 ambulatory oxygenation trial with no need for supplementation fortunately. #3. Recent left lower extremity DVT: Recent hospitalization in March with DVT acutely in the left gastrocnemius and posterior tibial veins, will continue on home Eliquis regimen, notes compliance with this medication however CTPA was obtained upon ED evaluation negative for pulmonary emboli of note. #4. HFpEF, chronic: Following with [facility] cardiology, will continue Eliquis, clonidine, labetalol, holding indapamide and dapagliflozin given acute kidney injury as noted, per current list does not appear to be on statin therapy with noted myalgia intolerance. Patient with significant medication allergy list including to several other blood pressure medications. Initiated upon admission on nifedipine 60 mg daily and likely will need to be discharged off diuretics at least temporarily with follow-up with cardiology outpatient. #5. Hypertension: Continue home regimen including cautiously labetalol, clonidine, nifedipine added with hold as noted on indapamide given BRIGHT #1, PRN hydralazine. #6. Hyperlipidemia: Not on statin therapy given intolerance with myalgias, defer to outpatient. #7. Hypothyroidism: Continue patient home levothyroxine regimen. #8. History of breast cancer: Unclear type, unclear exact interventions, considered in remission, encourage follow-up outpatient as previously arranged. #9. DVT prophylaxis: Eliquis #10. CODE STATUS: Full Code. Charges/Coding Visit Charges Inpatient E&M: 28208 Subs Hosp L2
[2025-04-28] MEDS: APIXABAN 5 MG TABLET PO (09:57)
[2025-04-28] MEDS: 0.9% Normal Saline (1000mL) 1,000 ML 100 ML IV (10:23)
--- NOTE | 2025-04-28 12:30 | CASEMGMT ---
PAULINA TOMLINSON Chart reveiw: Patient was admitted 04/09-04/11/25 for Chest pain and NSTEMI. See assessment from 04/10/25. Patient was discharge home with [employer] savings card, family support, and follow-up plans in place. Patient returned to [facility] ED after PCP appt for hypoxia. Patient was admitted for BRIGHT, orthostatic hypotension, and hypoxia. PAULINA TOMLINSON in to discuss needs at discharge and readmission, son at bedside. Patient states she was taking medications as prescribed. Patient attended PCP appt. Will monitor for home oxygen at discharge, prefers [employer]. Patient voices concern for at home who is blind that she cares for, daughter is currently staying with patient's and son voices that he is able to stay with his father as well. Patient states she has private aides starting on Wednesday for . Patient denies further needs or concerns at discharge. Patient had no further questions. Patient to discharge home with family support and follow-up plans in place.
--- NOTE | 2025-04-28 13:58 | PCM.CONS.C ---
Assessment & Plan Assessment/Plan (1) (HFpEF) heart failure with preserved ejection fraction: PLAN: Compensated HFpEF. Discontinue indapamide. Continue with dapagliflozin 5 mg daily. (2) BRIGHT (acute kidney injury): PLAN: Prerenal due to hypovolemia (3) HTN (hypertension), benign: PLAN: Continue with labetalol 100 mg twice daily Continue with clonidine patch (4) History of deep vein thrombosis (DVT) of lower extremity: PLAN: Reduce apixaban to 2.5 mg twice daily given age and low weight. HPI Consult Data Date of Consult: 04/28/25 HPI Narrative HPI Narrative: ZENAIDA WILKINSON, is a 89 F with a HFpEF 60%, HTN, HLD, Hx recent LLE DVT on eliquis, Hypothyroidism, CKD stage IIIb, Hx Breast CA unclear type in remission who presents to the [facility] ED on 04/27/25 secondary to significant dizziness and lightheadedness. She was admitted due to BRIGHT secondary to prerenal and orthostatic hypotension [facility] Medical History Chronic diastolic CHF (congestive heart failure) Chronic kidney disease HTN (hypertension) CHF (congestive heart failure) Home Medications ?Medication ?Instructions ?Recorded ?Last Taken ?Type levothyroxine 88 mcg tablet 88 mcg PO DAILY thyroid 01/18/18 04/09/25 History labetalol 200 mg tablet 100 mg PO BID Blood pressure 10/16/19 04/09/25 History melatonin 5 mg capsule 5 mg PO QHS Sleep 10/16/19 04/09/25 History clonidine 0.1 mg/24 hr weekly 1 patch transdermal QWEEK 11/06/23 04/09/25 History transdermal patch Hypertension minoxidil 2.5 mg tablet 2.5 mg PO DAILY Hair 04/09/25 Unknown History nitroglycerin 0.4 mg sublingual 0.4 mg sublingual PRN Chest pain 04/09/25 Unknown History tablet biotin 5 mg capsule 5 mg PO DAILY Supplement 04/10/25 Unknown History dapagliflozin propanediol 5 mg 5 mg PO DAILY Heart Failure 04/10/25 Unknown History tablet (Farxiga) ketoconazole 2 % shampoo 1 applic topical .2-3 times weekly 04/10/25 Unknown History Rash apixaban 5 mg tablet (Eliquis) 5 mg PO BID 30 days #60 tabs 04/11/25 Unknown Rx indapamide 2.5 mg tablet 2.5 mg PO DAILY 04/27/25 Unknown History Allergy/AdvReac Type Severity Reaction Status Date / Time iron Allergy Unknown Verified 04/27/25 13:16 pentazocine (From Talwin) Allergy Other Verified 04/27/25 13:16 scopolamine Allergy Other Verified 04/27/25 13:16 amlodipine AdvReac Unknown Significant Verified 04/27/25 13:16 swelling ARB-Angiotensin Receptor AdvReac Unknown BRIGHT/ Verified 04/27/25 13:16 Antagonist Hyperkalemia atorvastatin (From Lipitor) AdvReac Unknown Myalgia Verified 04/27/25 13:16 empagliflozin (From AdvReac Unknown Diarrhea Verified 04/27/25 13:16 Jardiance) hydralazine AdvReac Unknown Intolerance/ Verified 04/27/25 13:16 Nausea hydrochlorothiazide (hctz) AdvReac Unknown Containdication/ Verified 04/27/25 13:16 Hyponatremia losartan AdvReac Unknown BRIGHT with Verified 04/27/25 13:16 elevated potassium and creatinine spironolactone AdvReac Unknown Caused BP Verified 04/27/25 13:16 to go up verapamil AdvReac Unknown GI Upset Verified 04/27/25 13:16 Family History no significant family his Social History Smoking Status: Former smoker ROS Constitutional Constitutional: Reports systems reviewed and no addt'l complaints, except as documented Eyes Eyes: Reports systems reviewed and no addt'l complaints, except as documented ENT HEENT: Reports systems reviewed and no addt'l complaints, except as documented Cardiovascular Cardiovascular: Reports systems reviewed and no addt'l complaints, except as documented Respiratory/Chest Respiratory/Chest: Reports systems reviewed and no addt'l complaints, except as documented Gastrointestinal Gastrointestinal: Reports systems reviewed and no addt'l complaints, except as documented Genitourinary Genitourinary: Reports systems reviewed and no addt'l complaints, except as documented Musculoskeletal Musculoskeletal: Reports systems reviewed and no addt'l complaints, except as documented Integumentary Integumentary: Reports systems reviewed and no addt'l complaints, except as documented Neurologic Neurologic: Reports systems reviewed and no addt'l complaints, except as documented Psychiatric Psychiatric: Reports systems reviewed and no addt'l complaints, except as documented Endocrine Endocrinology: Reports systems reviewed and no addt'l complaints, except as documented Hematologic/Lymphatic Hematologic/Lymphatic: Reports systems reviewed and no addt'l complaints, except as documented Allergic/Immunologic Allergic/Immunologic: Reports systems reviewed and no addt'l complaints, except as documented Physical Exam Const alert HEENT normocephalic Eyes PERRL Neck full ROM Lymph Lymphatic: no lymphadenopathy noted Chest inspection of chest normal Cardio regular rate Jugular Venous Distention: JVD to the level of the earlobe GI normal to inspection, nondistended, normoactive bowel sounds no CVA tenderness Risk Stratification Risk Stratification Applicable: No Objective Data Vital Signs: Vital Signs Temp Pulse Resp BP Pulse Ox O2 Del Method 98.4 F 71 15 182/82 H 92 Room Air 04/28/25 09:46 04/28/25 09:05 04/28/25 05:50 04/28/25 09:05 04/28/25 05:50 04/28/25 08:33 Oxygen Delivery Method Room Air Weight: 124 lb 15.998 oz Body Mass Index (BMI) 20.1 Intake & Output: Intake and Output for Last 24 Hours 04/26/25 04/27/25 04/28/25 23:59 23:59 23:59 Intake Total 1200 / 1200 990 / 990 Balance 1200 / 1200 990 / 990 Lab / Micro Data 04/28/25 05:30 04/28/25 05:30 Labs: Laboratory Results - last 24 hr 04/27/25 15:29: WBC 4.5, RBC 3.65 L, Hgb 11.4 L, Hct 34.4 L, MCV 94.2, MCH 31.2, MCHC 33.1, RDW Std Deviation 43.3, RDW Coeff of Gabriella 12.5, Plt Count 245, MPV 9.6, Immature Gran % (Auto) 0.200, Neut % (Auto) 49.1, Lymph % (Auto) 32.8, [place] % (Auto) 12.7 H, Eos % (Auto) 4.5, Baso % (Auto) 0.7, Absolute Neuts (auto) 2.2, Absolute Lymphs (auto) 1.47, Nucleated RBC % 0, Sodium 140, Potassium 4.3, Chloride 100, Carbon Dioxide 28.2, Anion Gap 12, BUN 44 H, Creatinine 1.78 H, Estim Creat Clear Calc 20.09 L, Est GFR (MDRD) Non-Af 27 L, BUN/Creatinine Ratio 24.7 H, Glucose 110 H, Calcium 10.1, Troponin T High Sens 89 H* D, NT pro BNP II 614 04/27/25 17:34: Troponin T Hi Sens 2 Hr 84 H* 04/28/25 05:30: WBC 4.3 L, RBC 3.23 L, Hgb 10.2 L, Hct 30.1 L, MCV 93.2, MCH 31.6, MCHC 33.9, RDW Std Deviation 43.0, RDW Coeff of Gabriella 12.6, Plt Count 213, MPV 9.5, Sodium 140, Potassium 4.3, Chloride 104, Carbon Dioxide 27.4, Anion Gap 8, BUN 34 H, Creatinine 1.17, Estim Creat Clear Calc 29.75 L, Est GFR (MDRD) Non-Af 45 L, BUN/Creatinine Ratio 29.1 H, Glucose 90, Calcium 9.2 Cardiology Labs/Tests 04/27/25 15:29: WBC 4.5, RBC 3.65 L, Hgb 11.4 L, Hct 34.4 L, MCV 94.2, MCH 31.2, MCHC 33.1, Plt Count 245, MPV 9.6, Immature Gran % (Auto) 0.200, Neut % (Auto) 49.1, Lymph % (Auto) 32.8, [place] % (Auto) 12.7 H, Eos % (Auto) 4.5, Baso % (Auto) 0.7, Absolute Neuts (auto) 2.2, Nucleated RBC % 0, Sodium 140, Potassium 4.3, Chloride 100, Carbon Dioxide 28.2, Anion Gap 12, BUN 44 H, Creatinine 1.78 H, Est GFR (MDRD) Non-Af 27 L, BUN/Creatinine Ratio 24.7 H, Glucose 110 H, Calcium 10.1 04/28/25 05:30: WBC 4.3 L, RBC 3.23 L, Hgb 10.2 L, Hct 30.1 L, MCV 93.2, MCH 31.6, MCHC 33.9, Plt Count 213, MPV 9.5, Sodium 140, Potassium 4.3, Chloride 104, Carbon Dioxide 27.4, Anion Gap 8, BUN 34 H, Creatinine 1.17, Est GFR (MDRD) Non-Af 45 L, BUN/Creatinine Ratio 29.1 H, Glucose 90, Calcium 9.2 Rhythm: EKG: ECHO: Stress Test: Cardiac Cath: PCI: CT Surgery: Holter monitor: EPS: PPM: CXR: Chest CT Scan: Radiography Diagnostic Testing: Radiology Impression Chest X-Ray 04/27/25 15:16 IMPRESSION: No evidence of acute cardiopulmonary disease. Reading Location: [facility] Chest CTA 04/27/25 17:29 IMPRESSION: No pulmonary embolism. Left kidney indeterminate lesion. Further characterization with nonemergent ultrasound is recommended to determine if it is cystic. Chronic and ancillary findings as above. Reading Location: [id number]
--- NOTE | 2025-04-28 15:58 | DCINST_ITS ---
Discharge Instructions DC O2, CPAP, BIPAP needs Home O2 Discharge instructions: No Dressing / Incision Discharge Activity: - (Recommend continued routine activity. Please assure slow transitions from laying->seated->standing position changes. Please avoid prolonged heat exposure.) May resume sexual activity in: 10-14 days Weight Bearing Status: Weight bearing as tolerated Dressing / Incision Call your doctor if you observe: Fever of 101 or Higher, Shortness of breath, Dizziness, Swelling in the ankles, Chest pain, Increased palpitations (irregular heartbeat), Calf discomfort and Uncontrolled pain Follow Up Care Test Results: Test results from this visit will be discussed in further detail at your follow- up appointment, if applicable. Discharge Plan Admission Admit Date/Time: 04/27/25 20:05 Primary Reason for Your Visit: Acute Kidney Injury, Orthostasis Attending Provider: Ariella Breaux Primary Care Provider: Miguelina Capellan Consulting Providers: Adilson Melchor; Emmanuelle Lorenzana Instructions Additional Instructions / Restrictions: ADDITIONAL FOLLOW-UP/EVALUATION: --ED evaluation with chest x-ray with no acute cardiopulmonary findings, chest CTA with no pulmonary emboli with a left kidney indeterminate lesion, chronic and axillary findings unchanged, cardiac enzymes initially 89 with repeat 84 not concerning given recent cardiac catheterization with no acute coronary disease noted, BNP 614. --Initial ED renal function included BUN/creatinine 44/1.78, GFR 27 with baseline creatinine 1.1-1.3 but has vacillated from review of previous labs. Repeat renal function trending improved with 04/28/25 BUN/creatinine 34/1.17, GFR 45--> and most recently on day of discharge 04/29/25 BUN/creatinine 27/1.12, CFR 47. Please have repeat basic metabolic panel outpatient at follow-up with your primary care physician. --CTA Lung w/ incidentally noted left kidney indeterminate lesion. Please have follow-up outpatient nonemergent evaluation to determine if cystic in nature. --Given presentation with notable orthostatic vital signs (significant changes in heart rate/blood pressure with changes from laying, sitting to standing) with acute kidney injury suspected secondary to over diuresis your medications including indapamide and dapagliflozin were temporarily held. You were started on Procardia to assist with blood pressure control in the interim. The wedding photographer at discharge has recommended continuation of your dapagliflozin but discontinuation of indapamide as well as change of your Eliquis to 2.5 mg p.o. twice daily in accordance with altered dosing based on age and creatinine function. We have also prescribed Procardia and recommend given your elevated blood pressure above parameters that you continue this medication until reevaluation by your wedding photographer with further changes per their discretion. --The medication hold of the indapamide, change of Eliquis to renally dosing of 2.5 mg twice daily and initiated medication Procardia may be reassessed outpatient with follow-up with your wedding photographer and further changes made depending on your repeat vital sign assessments at that time as well as repeat basic metabolic function assessment per your primary care physician. -- Please also have repeat orthostatic vital sign assessment with your primary care and wedding photographer at follow-up. Discharge Orders/Prescriptions Prescriptions: New Eliquis 2.5 mg tablet 2.5 mg PO BID 30 Days Qty: 60 0RF nifedipine 60 mg Tablet Extended Release 24hr 60 mg PO DAILY 30 Days Qty: 30 0RF Continued levothyroxine 88 MCG tablet 88 mcg PO DAILY labetalol 200 MG tablet 100 mg PO BID melatonin 5 MG capsule 5 mg PO QHS clonidine 0.1 mg/24 hr patch weekly 1 patch transdermal QWEEK Patient Comments: Apply 1 patch topically one time a week as directed minoxidil 2.5 mg tablet 2.5 mg PO DAILY nitroglycerin 0.4 mg tablet, sublingual 0.4 mg sublingual PRN dapagliflozin propanediol [Farxiga] 5 mg tablet 5 mg PO DAILY ketoconazole 2 % shampoo 1 applic topical .2-3 times weekly biotin 5 mg capsule 5 mg PO DAILY Discontinued Eliquis 5 mg tablet 5 mg PO BID 30 Days Qty: 60 2RF indapamide 2.5 mg tablet 2.5 mg PO DAILY Referrals / Follow Up: Paul [facility] [Other] (Please follow-up immediately within the next 3-5 days with your [place] Clinical Documentation Nurse. You may see the CAR CARDER/PA in their office as well.) Miguelina Capellan MD [Primary Care Provider] - (Please follow-up with your primary care physician for evaluation following inpatient admission. Please also have a repeat basic metabolic panel and orthostatic vital sign assessment.) Disposition Disposition (needs filled in before D/C Order can be placed): Home, Self Care
[2025-04-28] MEDS: MELATONIN 10 MG TABLET 5 MG PO (21:07)
[2025-04-28] MEDS: APIXABAN 2.5 MG TABLET (WCH) PO (21:14)
[2025-04-29 05:00] VITALS: BP 184/82; PULSE 66; RESP 18; TEMP 36.8; O2SAT 96
[2025-04-29 05:04] VITALS: BP 184/82; PULSE 66
[2025-04-29] MEDS: 0.9% Saline Lock 10 ML Syringe IV (05:05)
[2025-04-29 06:00] VITALS: BP 148/73; PULSE 70; RESP 16; TEMP 36.7; O2SAT 95
[2025-04-29 06:41] LABS: Hematocrit 31.4 % (37-47); Hemoglobin 10.7 g/dL (12.0-15.0); Immature Granulocytes Count 0.010 X10^3/uL (0.0-0.0); Mean Corp Hgb Conc 34.1 g/dL (32-36); Mean Corpuscular Volume 91.0 fL (81-99); Mean Platelet Vol. 9.8 fl (6.2-12.0); NRBC Flagged by Analyzer 0 % (0-5); Platelet Count 218 K/mm3 (150-450); RBC Distribution Width CV 12.6 % (11.6-14.6); RBC Distribution Width SD 41.7 fl (35.1-43.9); Red Blood Count 3.45 M/mm3 (4.2-5.4); White Blood Count 4.5 K/mm3 (4.4-11.0)
[2025-04-29 07:08] LABS: AST(SGOT) 22 U/L (<=31); Alanine Aminotransfer ALT/SGPT 15 U/L (<=34); Albumin, Serum 3.7 g/dL (3.4-4.8); Alkaline Phosphatase 60 U/L (35-104); Anion Gap 9 (5-15); BUN 27 mg/dL (4-19); BUN/Creat Ratio 24.0 RATIO (10-20); Calcium,Total 9.6 mg/dL (7.6-11.0); Carbon Dioxide 26.5 mmol/L (21.0-32.0); Chloride 104 mmol/L (98-108); Estimated Creatinine Clearance 31.08 ml/min (50-250); Globulin 2.2 g/dL (2.2-4.2); Glucose 89 mg/dL (70-99); Magnesium 1.6 mg/dL (1.5-2.2); Potassium 3.9 mmol/L (3.3-5.1)
--- NOTE | 2025-04-29 07:08 | PCM.PN.HOSP ---
Reason for Visit Reason for Visit: Diagnoses Essential (primary) hypertension (04/27/25) Unspecified diastolic (congestive) heart failure (04/27/25) Orthostatic hypotension (04/27/25) Acute kidney failure, unspecified (04/27/25) Hypoxemia (04/27/25) Personal history of other venous thrombosis and embolism (04/27/25) Subjective Subjective Patient with no acute events overnight per self and per nursing report. Repeat orthostatics this morning continue to improve. She denied any lightheadedness or dizziness with activity. She walked the halls with nursing staff and there was no evidence of any concerning near syncope symptoms and her oxygen remained appropriate. Discussed with patient and son plan of care which included discharge to home, recommended follow-up with her mortgage processing clerk and primary care physician with call per her to their office on Wednesday given closed on Wednesday. Did discuss attempting to contact these offices to relay recent admission and requested that she be seen this week. Patient denies fevers, chills, nausea, emesis, abdominal pain, chest pain or dyspnea. Objective Data Objective Data Vital Signs: Vital Signs Temp Pulse Resp BP Pulse Ox O2 Del Method 98.0 F 70 16 148/73 H 95 Room Air 04/29/25 06:00 04/29/25 06:00 04/29/25 06:00 04/29/25 06:00 04/29/25 06:00 04/29/25 06:00 Oxygen Delivery Method Room Air Weight: 124 lb 15.998 oz Body Mass Index (BMI) 20.1 Intake & Output: Intake and Output for Last 24 Hours 04/27/25 04/28/25 04/29/25 23:59 23:59 23:59 Intake Total 1200 / 1200 2386.67 / 2386.67 100 / 100 Balance 1200 / 1200 2386.67 / 2386.67 100 / 100 Lab / Micro Data 04/29/25 05:50 04/29/25 05:50 Labs: Laboratory Results - last 24 hr 04/29/25 05:50: WBC 4.5, RBC 3.45 L, Hgb 10.7 L, Hct 31.4 L, MCV 91.0, MCH 31.0, MCHC 34.1, RDW Std Deviation 41.7, RDW Coeff of Gabriella 12.6, Plt Count 218, MPV 9.8, Immature Gran % (Auto) 0.200, Neut % (Auto) 35.2 L, Lymph % (Auto) 44.5 H, [place] % (Auto) 13.3 H, Eos % (Auto) 6.1 H, Baso % (Auto) 0.7, Absolute Neuts (auto) 1.6 L, Absolute Lymphs (auto) 1.98, Nucleated RBC % 0 Physical Exam Narrative Physical Examination: General: Awake, alert, oriented x 3 and cooperative, initially seated upright in the PCU bed, notes feeling improved, eager for discharge, repeat orthostatics remains improved, witnessed later in the morning walking in the halls without issue with staff. Skin: Normal color, normal turgor, no icterus, no cyanosis except occasional stage ecchymoses, abrasion. HEENT: AT/NC, EOMI, PERRLA, MMM. Lungs: Mildly diminished, greater bases, proper effort, no rales, ronchi or wheezing. Heart: Regular rate and rhythm; no gallop, rub audible. Abdomen: Soft, NTTP, ND, normal BS. Extremities: No cyanosis, no clubbing, no significant distal edema noted. Neurological: Patient awake, alert, oriented as noted, cognitive function intact; pupils equally reactive to light and accommodation, cranial nerves grossly normal, moving all 4 extremities, no focal deficits, strength improved, mildly globally creased, suspect nearing baseline. Psychiatric: Affect appears normal, no acute evidence of depressive or anxiety feelings. Assessment & Plan Assessment/Plan (1) BRIGHT (acute kidney injury): (2) Orthostatic hypotension: (3) Hypoxia: PLAN: Plan The patient is an 89 y/o F w/ PMHx: HFpEF, HTN, HLD, Hx recent LLE DVT on eliquis, Hypothyroidism, CKD stage IIIb per record, Hx Breast CA unclear type in remission who presents to the [facility] ED on 04/27/25 secondary to significant dizziness and lightheadedness. #1. Acute kidney injury on CKD stage IIIb secondary to suspected dehydration/hypovolemia as well as nephrotoxic medication associated with orthostatic hypotension: Admitted to PCU, maintained on monitor, very judiciously hydrated, admission BUN/creatinine 44/1.78, baseline creatinine primarily 1.1-1.2, notable orthostatics in the ED with standing with symptomatic lightheadedness at that time, nephrotoxic medication held including indapamide and dapagliflozin. 04/28/25 repeat BUN/creatinine 30/1.17, GFR 45, notably improved. 04/28/25 AM repeat orthostatics however significant with again laying systolic 180, seated 156 and standing 130 however at this time patient was not symptomatic. Repeat orthostatics 04/28/2025 afternoon improved and repeat 04/29/2025 orthostatics further improved. Patient walking the halls without any issue or near syncopal type sensation. Per discussion with cardiology upon discharge we will continue to hold indapamide, resumption of empagliflozin with follow-up with cardiology recommended. Given clinical improvement, resolved BRIGHT with 04/29/25 BUN/1 and 27/1.12, GFR 47 we will plan discharge to home with early follow-up as noted with cardiology and PCP with adjustments/hold as well as altered medication dosing as noted. #2. Exertional hypoxia of unclear etiology, resolved: Upon ED arrival patient with O2 saturation 95% on room air with good activity desaturated down to 85% requiring 2 L nasal cannula, CTPA with no obvious acute findings, recent echocardiogram 04/10/25 with mild pulmonary hypertension otherwise no overt concerning findings. Recent cardiac catheterization same day with noted nonobstructive coronary arteries with recommendation for ongoing medical management. 03/29/2025 ambulatory oxygenation trial with no need for supplementation fortunately. Repeat evaluation 04/29/2025 walking the halls with no hypoxia, appears resolved, unclear specific etiology upon arrival. #3. Recent left lower extremity DVT: Recent hospitalization in March with DVT acutely in the left gastrocnemius and posterior tibial veins, continued on Eliquis however regimen decreased to 2.5 mg twice daily per cardiology recommendation, notes compliance with this medication however CTPA was obtained upon ED evaluation negative for pulmonary emboli of note. #4. HFpEF, chronic: Following with [facility] cardiology, will clonidine, labetalol, holding indapamide, given improvement of renal function per cardiology recommendation 04/28/2025 restarted dapagliflozin, changed Eliquis to 2.5 mg p.o. twice daily. Per current list does not appear to be on statin therapy with noted myalgia intolerance. Patient with significant medication allergy list including to several other blood pressure medications. Initiated upon admission on nifedipine 60 mg daily which will also be continued upon discharge with follow-up with cardiology outpatient as well as PCP recommended. #5. Hypertension: Continue home regimen including cautiously labetalol, clonidine, nifedipine added with hold as noted on indapamide given BRIGHT #1, PRN hydralazine. #6. Hyperlipidemia: Not on statin therapy given intolerance with myalgias, defer to outpatient. #7. Hypothyroidism: Continue patient home levothyroxine regimen. #8. History of breast cancer: Unclear type, unclear exact interventions, considered in remission, encourage follow-up outpatient as previously arranged. #9. DVT prophylaxis: Eliquis changed to 2.5 mg p.o. twice daily per cardiology recommendation. #10. CODE STATUS: Full Code. Charges/Coding Visit Charges Inpatient E&M: 15753 Subs Hosp L2
[2025-04-29 07:57] VITALS: BP 108/63; BP 138/80; BP 149/76; PULSE 68; PULSE 69; PULSE 85
[2025-04-29 08:14] VITALS: RESP 16; TEMP 36.6; O2SAT 96
--- NOTE | 2025-04-29 08:19 | PCM.DC.SUM ---
Providers Date of Admission: 04/27/25 Date of Discharge: 04/29/25 Primary Care Physician: Dr. Miguelina Capellan MD Consultations 04/28/25 11:12 Consult: Cardiology Routine Consulting Provider: Emmanuelle Lorenzana Reason for Consult: Orthostasis, BRIGHT related likely to diuretic meds EMERGENT Consult: No MD Notified: Yes Date Notified: 04/28/25 Time Notified: 11:13 Method of Notification: Text Reason For Visit: BRIGHT W/ORTHOSTATIC HOTN, HYPOXIA Diagnosis Discharge Diagnosis (1) BRIGHT (acute kidney injury): Status: Acute Code(s): N17.9 - Acute kidney failure, unspecified (2) Orthostatic hypotension: Status: Acute Code(s): I95.1 - Orthostatic hypotension (3) Hypoxia: Status: Acute Code(s): R09.02 - Hypoxemia Plan: DISCHARGE DIAGNOSES: #1. Acute kidney injury on CKD stage IIIb secondary to suspected dehydration/hypovolemia as well as nephrotoxic medication associated with orthostatic hypotension #2. Exertional hypoxia of unclear etiology, RESOLVED #3. Recent left lower extremity DVT #4. HFpEF, chronic #5. Hypertension #6. Hyperlipidemia #7. Hypothyroidism #8. History of breast cancer, Unclear type, unclear exact interventions, considered in remission #9. CODE STATUS: Full Code. Medications at Discharge Home Medications levothyroxine 88 mcg tablet 88 mcg PO DAILY thyroid 01/18/18 labetalol 200 mg tablet 100 mg PO BID Blood pressure 10/16/19 melatonin 5 mg capsule 5 mg PO QHS Sleep 10/16/19 clonidine 0.1 mg/24 hr weekly transdermal patch 1 patch transdermal QWEEK Hypertension 11/06/23 minoxidil 2.5 mg tablet 2.5 mg PO DAILY Hair 04/09/25 nitroglycerin 0.4 mg sublingual tablet 0.4 mg sublingual PRN Chest pain 04/09/25 biotin 5 mg capsule 5 mg PO DAILY Supplement 04/10/25 dapagliflozin propanediol 5 mg tablet (Farxiga) 5 mg PO DAILY Heart Failure 04/10/25 ketoconazole 2 % shampoo 1 applic topical .2-3 times weekly Rash 04/10/25 apixaban 2.5 mg tablet (Eliquis) 2.5 mg PO BID 30 days #60 tabs 04/28/25 nifedipine 60 mg tablet,extended release 24 hr 60 mg PO DAILY 30 days #30 tabs 04/28/25 Hospital Course Operations None Procedures EKG Summary of Care Provided Minutes Spent on Discharge: 35 Hospital Course: The patient is an 89 y/o F w/ PMHx: HFpEF, HTN, HLD, Hx recent LLE DVT on eliquis, Hypothyroidism, CKD stage IIIb per record, Hx Breast CA unclear type in remission who presented to the [facility] ED on 04/27/25 secondary to significant dizziness and lightheadedness. Admitted to PCU, maintained on monitor, very judiciously hydrated, admission BUN/creatinine 44/1.78, baseline creatinine primarily 1.1-1.2, notable orthostatics in the ED with standing with symptomatic lightheadedness at that time, nephrotoxic medication held including indapamide and dapagliflozin. 04/28/25 repeat BUN/creatinine 30/1.17, GFR 45, notably improved. 04/28/25 AM repeat orthostatics however significant with again laying systolic 180, seated 156 and standing 130 however at this time patient was not symptomatic. Repeat orthostatics 04/28/2025 afternoon improved and repeat 04/29/2025 orthostatics further improved. Patient walking the halls without any issue or near syncopal type sensation. Per discussion with cardiology upon discharge we will continue to hold indapamide, resumption of empagliflozin with follow-up with cardiology recommended. Upon ED arrival patient with O2 saturation 95% on room air with good activity desaturated down to 85% requiring 2 L nasal cannula, CTPA with no obvious acute findings, recent echocardiogram 04/10/25 with mild pulmonary hypertension otherwise no overt concerning findings. Recent cardiac catheterization same day with noted nonobstructive coronary arteries with recommendation for ongoing medical management. 03/29/2025 ambulatory oxygenation trial with no need for supplementation fortunately. Repeat evaluation 04/29/2025 walking the halls with no hypoxia. Given clinical improvement, resolved BRIGHT with 04/29/25 BUN/1 and 27/1.12, GFR 47 we will plan discharge to home with early follow-up as noted with cardiology and PCP with adjustments/hold as well as altered medication dosing as noted. Weight / BMI Weight Weight: 124 lb 15.998 oz Body Mass Index (BMI) 20.1 ABG / Lab / Microbiology Data 04/29/25 05:50 04/29/25 05:50 Laboratory: Laboratory Results - last 24 hr 04/29/25 05:50: WBC 4.5, RBC 3.45 L, Hgb 10.7 L, Hct 31.4 L, MCV 91.0, MCH 31.0, MCHC 34.1, RDW Std Deviation 41.7, RDW Coeff of Gabriella 12.6, Plt Count 218, MPV 9.8, Immature Gran % (Auto) 0.200, Neut % (Auto) 35.2 L, Lymph % (Auto) 44.5 H, [place] % (Auto) 13.3 H, Eos % (Auto) 6.1 H, Baso % (Auto) 0.7, Absolute Neuts (auto) 1.6 L, Absolute Lymphs (auto) 1.98, Nucleated RBC % 0, Sodium 139, Potassium 3.9, Chloride 104, Carbon Dioxide 26.5, Anion Gap 9, BUN 27 H, Creatinine 1.12, Estim Creat Clear Calc 31.08 L, Est GFR (MDRD) Non-Af 47 L, BUN/Creatinine Ratio 24.0 H, Glucose 89, Calcium 9.6, Magnesium 1.6, Total Bilirubin 0.53, AST 22, ALT 15, Alkaline Phosphatase 60, Total Protein 5.9, Albumin 3.7, Globulin 2.2, Albumin/Globulin Ratio 1.7 D/C Instructions May resume sexual activity in: 10-14 days Weight Bearing Status: Weight bearing as tolerated Call your doctor if you observe: Fever of 101 or Higher, Shortness of breath, Dizziness, Swelling in the ankles, Chest pain, Increased palpitations (irregular heartbeat), Calf discomfort and Uncontrolled pain DC O2, CPAP, BIPAP Needs Home O2 Discharge instructions: No Meaningful Use Info Meaningful Use Meaningful Use Diagnoses (Choose all that apply): None applicable Discharge Plan Admission Admit Date/Time: 04/27/25 20:05 Primary Reason for Your Visit: Acute Kidney Injury, Orthostasis Attending Provider: Ariella Breaux Primary Care Provider: Miguelina Capellan Consulting Providers: Adilson Melchor; Emmanuelle Lorenzana Instructions Additional Instructions / Restrictions: ADDITIONAL FOLLOW-UP/EVALUATION: --ED evaluation with chest x-ray with no acute cardiopulmonary findings, chest CTA with no pulmonary emboli with a left kidney indeterminate lesion, chronic and axillary findings unchanged, cardiac enzymes initially 89 with repeat 84 not concerning given recent cardiac catheterization with no acute coronary disease noted, BNP 614. --Initial ED renal function included BUN/creatinine 44/1.78, GFR 27 with baseline creatinine 1.1-1.3 but has vacillated from review of previous labs. Repeat renal function trending improved with 04/28/25 BUN/creatinine 34/1.17, GFR 45--> and most recently on day of discharge 04/29/25 BUN/creatinine 27/1.12, CFR 47. Please have repeat basic metabolic panel outpatient at follow-up with your primary care physician. --CTA Lung w/ incidentally noted left kidney indeterminate lesion. Please have follow-up outpatient nonemergent evaluation to determine if cystic in nature. --Given presentation with notable orthostatic vital signs (significant changes in heart rate/blood pressure with changes from laying, sitting to standing) with acute kidney injury suspected secondary to over diuresis your medications including indapamide and dapagliflozin were temporarily held. You were started on Procardia to assist with blood pressure control in the interim. The general ledger bookkeeper at discharge has recommended continuation of your dapagliflozin but discontinuation of indapamide as well as change of your Eliquis to 2.5 mg p.o. twice daily in accordance with altered dosing based on age and creatinine function. We have also prescribed Procardia and recommend given your elevated blood pressure above parameters that you continue this medication until reevaluation by your general ledger bookkeeper with further changes per their discretion. --The medication hold of the indapamide, change of Eliquis to renally dosing of 2.5 mg twice daily and initiated medication Procardia may be reassessed outpatient with follow-up with your general ledger bookkeeper and further changes made depending on your repeat vital sign assessments at that time as well as repeat basic metabolic function assessment per your primary care physician. --Please also have repeat orthostatic vital sign assessment with your primary care and general ledger bookkeeper at follow-up. Discharge Orders/Prescriptions Prescriptions: New Eliquis 2.5 mg tablet 2.5 mg PO BID 30 Days Qty: 60 0RF nifedipine 60 mg Tablet Extended Release 24hr 60 mg PO DAILY 30 Days Qty: 30 0RF Continued levothyroxine 88 MCG tablet 88 mcg PO DAILY labetalol 200 MG tablet 100 mg PO BID melatonin 5 MG capsule 5 mg PO QHS clonidine 0.1 mg/24 hr patch weekly 1 patch transdermal QWEEK Patient Comments: Apply 1 patch topically one time a week as directed minoxidil 2.5 mg tablet 2.5 mg PO DAILY nitroglycerin 0.4 mg tablet, sublingual 0.4 mg sublingual PRN dapagliflozin propanediol [Farxiga] 5 mg tablet 5 mg PO DAILY ketoconazole 2 % shampoo 1 applic topical .2-3 times weekly biotin 5 mg capsule 5 mg PO DAILY Discontinued Eliquis 5 mg tablet 5 mg PO BID 30 Days Qty: 60 2RF indapamide 2.5 mg tablet 2.5 mg PO DAILY Referrals / Follow Up: Paul Woods [Other] (Please follow-up immediately within the next 3-5 days with your [place] Printer Technician. You may see the SET UP MACHINIST/PA in their office as well. Please call [phone] to schedule your appointment. ) Miguelina Capellan MD [Primary Care Provider] - (Please follow-up with your primary care physician for evaluation following inpatient admission. Please also have a repeat basic metabolic panel and orthostatic vital sign assessment.) Disposition Disposition (needs filled in before D/C Order can be placed): Home, Self Care Charges/Coding Visit Charges Inpatient E&M: 09852 Disch Hosp >30min
[2025-04-29] MEDS: NIFEdipine 60 MG Tablet PO (08:25)
[2025-04-29] MEDS: APIXABAN 2.5 MG TABLET (WCH) PO (08:25)
[2025-04-29 09:50] VITALS: O2SAT 90; O2SAT 97
== END 2025-04-29 11:44 | disposition home or self-care (01) | DRG 683 ==
LOC: ED 20:04 → PCU 20:57
PROVIDERS: Physician Assistant; Admitting Provider Hospitalist; Emergency Provider Emergency Medicine; PCP Internal Medicine; Visit Provider Family Medicine
DX: N17.9 Acute kidney failure, unspecified (principal); I13.0 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 disease, or unspecified chronic kidney disease; I50.32 Chronic diastolic (congestive) heart failure; E03.9 Hypothyroidism, unspecified; N18.32 Chronic kidney disease, stage 3b; E86.0 Dehydration; E86.1 Hypovolemia; I95.1 Orthostatic hypotension; E78.5 Hyperlipidemia, unspecified; I25.2 Old myocardial infarction; Z87.891 Personal history of nicotine dependence; Z79.899 Other long term (current) drug therapy; Z86.718 Personal history of other venous thrombosis and embolism; Z79.84 Long term (current) use of oral hypoglycemic drugs
CPT/HCPCS: 36415; 71046; 71275; 80048; 80053; 83735; 83880; 84484; 85025; 85027; 93005; 97802; 99285; Q9967; A4216

== ENCOUNTER → 2025-07-11 | Outpatient (CLI) | payer MEDICARE, OTHER, SELFPAY ==
[2025-07-11 14:31] VITALS: PULSE 62
[2025-07-11 14:36] VITALS: O2SAT 96
[2025-07-11 14:40] VITALS: BP 110/56; BMI 20.8
[2025-07-11 15:22] VITALS: BP 110/56; O2SAT 96; BMI 20.8
== END | disposition home or self-care (01) ==
PROVIDERS: PCP Internal Medicine
DX: J44.9 Chronic obstructive pulmonary disease, unspecified (principal)

== ENCOUNTER 2025-07-17 08:19 | Outpatient (RCR) | payer MEDICARE, OTHER, SELFPAY ==
[2025-07-11 15:22] VITALS: BMI 20.8
== END 2025-07-17 23:59 ==
LOC: PR 08:19
PROVIDERS: PCP Internal Medicine
DX: J44.9 Chronic obstructive pulmonary disease, unspecified (principal)
CPT/HCPCS: 97150; 94626

== ENCOUNTER 2025-07-27 13:00 | Outpatient (RCR) | payer MEDICARE, OTHER, SELFPAY ==
[2025-07-11 15:22] VITALS: BMI 20.8
--- NOTE | 2025-08-07 08:04 | PCM.PR.TP ---
Exercise - Initial Assessment Visit Session Number:: 4 Physician Prescribed Exercise Modalities: Schwinn dyne AD-7, SciFit Stepper and ShakeFit Pro-II Ergometer Current METSs:: 2.1 Target HR:: 98 (85-98) Current RPD:: 2-4 Maximum Exercise HR:: 92 Resting Blood Pressure: 122/54 Maximum Exercise Blood Pressure: 150/70 Minimum SpO2 with exercise: 96 (room air) EKG Type: NSR Nutrition/Wt Mgmt - Initial Visit Session Number:: 4 (Med hold. Nutrition survey score of 2.) Weight Management Admit Height:: 5 ft 6 in Admit Weight:: 154 lb Admit BMI:: 24.8 Nutrition/Wt Mgmt - 30-Day Visit Date of Eval: 08/07/25 Session Number:: 4 (Med hold. Nutrition survey score of 2.) Weight Management Height: 5 ft 6 in Weight:: 154 lb BMI: 24.8 Weight Goals Progress:: Not progressing (Med hold) Nutrition/Wt Mgmt - 60-Day Visit Session Number:: 4 (Med hold. Nutrition survey score of 2.) Weight Management Height: 5 ft 6 in Weight:: 154 lb BMI: 24.8 Nutrition/Wt Mgmt - 90-Day Visit Session Number:: 4 (Med hold. Nutrition survey score of 2.) Weight Management Height: 5 ft 6 in Weight:: 154 lb BMI: 24.8 Nutrition/Wt Mgmt - Final Visit Session Number:: 4 (Med hold. Nutrition survey score of 2.) Weight Management Height: 5 ft 6 in Weight:: 154 lb BMI: 24.8 Psychosocial - Initial Assess Visit Session Number:: 4 (Med hold. Nutrition survey score of 2.) Problems/Goals History of Emotional Disorders: None Psychosocial Goals: 1. Patient is free from overwhelming symtoms of depression (or anxiety, 2. Identifies personal stressors & states the strategies for managing, 3. Identifies activities to decrease isolation and/or symptoms of, 4. Improved psychosocial coping skills., 5. Verbalizes coping strategies., 6. Adequate treatment of depression. and 7. Improved Q.O.L. Psychosocial Test Tool Used:: Pulmonary QOL and PHQ-9 Questionnaire PHQ-9 Score: 4 Referral to Behavioral Health PS - Interventions: Yes: Attend Stress Management Classes Intervention/Plan: See List Interventions/Plan:: Assess stressors,coping strategies & signs of derpression on admission, Instruct/assist pt to develop coping & personal stress Mgt strategies, Refer to Behavioral Health if appropriate, Refer to Physician if appropriate, Instruct patient to recognize signs & symptoms of depression and Instruct patient to recog Comments:: [facility] Psychosocial - 30-Day Visit Date of Eval: 08/07/25 Session Number:: 4 ([facility] CheckInOn[employer]Me. Nutrition survey score of 2.) Problems/Goals History of Emotional Disorders: None Psychosocial Goals: 1. Patient is free from overwhelming symtoms of depression (or anxiety, 2. Identifies personal stressors & states the strategies for managing, 3. Identifies activities to decrease isolation and/or symptoms of, 4. Improved psychosocial coping skills., 5. Verbalizes coping strategies., 6. Adequate treatment of depression. and 7. Improved Q.O.L. Psychosocial Test Tool Used:: Pulmonary QOL and PHQ-9 Questionnaire PHQ-9 Score: 4 Referral to Behavioral Health PS - Interventions: Yes: Attend Stress Management Classes Plan Interventions/Plan:: Assess stressors,coping strategies & signs of derpression on admission, Instruct/assist pt to develop coping & personal stress Mgt strategies, Refer to Behavioral Health if appropriate, Refer to Physician if appropriate, Instruct patient to recognize signs & symptoms of depression and Instruct patient to recog Comments:: [facility] - 60-Day Visit Session Number:: 4 ([employer]. Nutrition survey score of 2.) Problems/Goals History of Emotional Disorders: None Psychosocial Goals: 1. Patient is free from overwhelming symtoms of depression (or anxiety, 2. Identifies personal stressors & states the strategies for managing, 3. Identifies activities to decrease isolation and/or symptoms of, 4. Improved psychosocial coping skills., 5. Verbalizes coping strategies., 6. Adequate treatment of depression. and 7. Improved Q.O.L. Psychosocial Test Tool Used:: Pulmonary QOL and PHQ-9 Questionnaire PHQ-9 Score: 4 Referral to Behavioral Health PS - Interventions: Yes: Attend Stress Management Classes Plan Interventions/Plan:: Assess stressors,coping strategies & signs of derpression on admission, Instruct/assist pt to develop coping & personal stress Mgt strategies, Refer to Behavioral Health if appropriate, Refer to Physician if appropriate, Instruct patient to recognize signs & symptoms of depression and Instruct patient to recog Comments:: [facility] - 90-Day Visit Session Number:: 4 Problems/Goals History of Emotional Disorders: None Psychosocial Goals: 1. Patient is free from overwhelming symtoms of depression (or anxiety, 2. Identifies personal stressors & states the strategies for managing, 3. Identifies activities to decrease isolation and/or symptoms of, 4. Improved psychosocial coping skills., 5. Verbalizes coping strategies., 6. Adequate treatment of depression. and 7. Improved Q.O.L. Psychosocial Test Tool Used:: Pulmonary QOL and PHQ-9 Questionnaire PHQ-9 Score: 4 Referral to Behavioral Health PS - Interventions: Yes: Attend Stress Management Classes Plan Interventions/Plan:: Assess stressors,coping strategies & signs of derpression on admission, Instruct/assist pt to develop coping & personal stress Mgt strategies, Refer to Behavioral Health if appropriate, Refer to Physician if appropriate, Instruct patient to recognize signs & symptoms of depression and Instruct patient to recog Comments:: [facility] Psychosocial - Final Assess Visit Session Number:: 4 Problems/Goals History of Emotional Disorders: None Psychosocial Goals: 1. Patient is free from overwhelming symtoms of depression (or anxiety, 2. Identifies personal stressors & states the strategies for managing, 3. Identifies activities to decrease isolation and/or symptoms of, 4. Improved psychosocial coping skills., 5. Verbalizes coping strategies., 6. Adequate treatment of depression. and 7. Improved Q.O.L. Psychosocial Test Tool Used:: Pulmonary QOL and PHQ-9 Questionnaire PHQ-9 Score: 4 Referral to Behavioral Health PS - Interventions: Yes: Attend Stress Management Classes Plan Interventions/Plan:: Assess stressors,coping strategies & signs of derpression on admission, Instruct/assist pt to develop coping & personal stress Mgt strategies, Refer to Behavioral Health if appropriate, Refer to Physician if appropriate, Instruct patient to recognize signs & symptoms of depression and Instruct patient to recog Comments:: Med CheckInOn[employer]Me Oxygen & Oxygen Titration Init Visit Session Number:: 4 (Med hold. Nutrition survey score of 2.) Initial Assessment SpO2:: 96 (room air) Oxygen & Oxygen Titration 30D Visit Date of Eval: 08/07/25 Session Number:: 4 Reassessment Reassessment- 30 Days: Demonstrate knowledge of O2 Rx at rest & w/exercise SpO2:: 96 (room air) Oxygen & Oxygen Titration 60D Visit Date of Eval: 08/07/25 Session Number:: 4 Reassessment SpO2:: 96 (room air) Oxygen & Oxygen Titration 90D Visit Date of Eval: 08/07/25 Session Number:: 4 Reassessment SpO2:: 96 (room air) Oxygen & Oxygen Titration ANUSHA Visit Date of Eval: 08/07/25 Session Number:: 4 Reassessment SpO2:: 96 (room air) Core Components - Initial Visit Session Number:: 4 Hypertension BP: 122/54 [place] [employer] Hypertension Guidelines Blood Pressure: 150/70 Outcomes/Goals: Able to verbalize/achieve optimal blood pressure <130/80 and Incorporates diet changes & exercise for blood pressure control by DC Tobacco - Initial Assessment Tobacco Program Goals Gave Education Materials For:: Tobacco Triggers, Pulmonary Disease, Risk Factors, Breathing Techniques, Medical Compliance, Pulmonary A&P, Exacerbation Signs & Symptoms and Stress & Relaxation Core Components - 30 DAYS Visit Date of Eval: 08/07/25 Session Number:: 4 Hypertension Resting Blood Pressure:: 122/54 [place] [employer] Hypertension Guidelines Peak Exercise Blood Pressure:: 150/70 Change in medication: No Outcomes/Goals: Able to verbalize/achieve optimal blood pressure <130/80 and Incorporates diet changes & exercise for blood pressure control by DC Interventions/plan: Instruct on optimal blood pressure, hypertension & medications and Instruct on effects of sodium, alcohol, stress, exercise &hypertension 30 day Reassessments:: Not Met Reassessment Notes & Comments:: Set.fm Tobacco - 30-Day Tobacco Program Goals Gave Education Materials For:: Tobacco Triggers, Pulmonary Disease, Risk Factors, Breathing Techniques, Medical Compliance, Pulmonary A&P, Exacerbation Signs & Symptoms and Stress & Relaxation Medication Medication list reviewed:: Yes Core Components - 60 DAYS Visit Session Number:: 4 Hypertension Resting Blood Pressure:: 122/54 [place] [employer] Hypertension Guidelines Peak Exercise Blood Pressure:: 150/70 Change in medication: No Outcomes/Goals: Able to verbalize/achieve optimal blood pressure <130/80 and Incorporates diet changes & exercise for blood pressure control by DC Interventions/plan: Instruct on optimal blood pressure, hypertension & medications and Instruct on effects of sodium, alcohol, stress, exercise &hypertension 60 day Reassessments:: Not Met Reassessment Notes & Comments:: Set.fm Tobacco - 60-Day Tobacco Program Goals Gave Education Materials For:: Tobacco Triggers, Pulmonary Disease, Risk Factors, Breathing Techniques, Medical Compliance, Pulmonary A&P, Exacerbation Signs & Symptoms and Stress & Relaxation Core Components - 90 DAYS Visit Session Number:: 4 Hypertension Resting Blood Pressure:: 122/54 [place] [employer] Hypertension Guidelines Peak Exercise Blood Pressure:: 150/70 Outcomes/Goals: Able to verbalize/achieve optimal blood pressure <130/80 and Incorporates diet changes & exercise for blood pressure control by DC Interventions/plan: Instruct on optimal blood pressure, hypertension & medications and Instruct on effects of sodium, alcohol, stress, exercise &hypertension 90 day Reassessments:: Not Met Reassessment Notes & Comments:: med hold Tobacco - 90-Day Tobacco Program Goals Gave Education Materials For:: Tobacco Triggers, Pulmonary Disease, Risk Factors, Breathing Techniques, Medical Compliance, Pulmonary A&P, Exacerbation Signs & Symptoms and Stress & Relaxation Core Components - Final Visit Session Number:: 4 Hypertension Resting Blood Pressure:: 122/54 [place] [employer] Hypertension Guidelines Peak Exercise Blood Pressure:: 150/70 Outcomes/Goals: Able to verbalize/achieve optimal blood pressure <130/80 and Incorporates diet changes & exercise for blood pressure control by DC Knowledge Questionaire (BCKQ) Information Information: [place] COPD Knowledge Questionnaire (BCKQ) This questionnaire is designed to find out what you know about your lung problem. It should be completed without help form anyone else. This usually takes between 10 and 20 minutes. Your answers will help us to find out what information you need to help you to understand and manage your lung condition. [place] which you think is the correct answer.
[2025-08-07 08:14] VITALS: BP 122/54; BP 150/70; O2SAT 96; BMI 24.8
== END 2025-08-17 23:59 ==
LOC: PR 13:00
PROVIDERS: PCP Internal Medicine
DX: J44.9 Chronic obstructive pulmonary disease, unspecified (principal)
CPT/HCPCS: 97150; 94626

== ENCOUNTER 2025-08-26 09:52 | Emergency (ER) | payer MEDICARE, OTHER, SELFPAY ==
[2025-08-07 08:14] VITALS: BMI 24.8
[2025-08-26 09:52] VITALS: BP 181/89; PULSE 76; RESP 16; TEMP 36.3; O2SAT 100
--- NOTE | 2025-08-26 10:42 | ED.VIS.LOWEX ---
HPI History of Present Illness Chief Complaint: Lower Extremity Injury Informant: patient and family Narrative Narrative: Patient is an 89-year-old female with a history of HTN and COPD presenting with worsening left hip pain. She is accompanied by her daughter, who is supplementing history. - Reports left hip pain that began as mild discomfort in May and has progressively worsened. - Pain is localized to the lateral hip, radiating to the groin and back, and extending to the knee; no pain beyond the knee. - Pain is exacerbated by weight-bearing and is described as "intolerable" when lying down; alleviated by sitting with the hip flexed. - Denies fevers, abdominal pain, dysuria, or foot numbness. No new symptoms, presenting today for increasing pain despite hip injection 1 month ago and just finishing prednisone taper without any improvement. - Evaluated by orthopedics and received a corticosteroid injection on July 31, which provided no relief. Seeing F Jaycee morales. - Has tried multiple topical and oral medications without improvement. - Currently taking oxycodone at night for pain management. - Diagnosed with arthritis in the hip, had prior Xrays. - Denies DM; has a history of HTN and COPD, managed with medications. - Has a follow-up appointment with orthopedics on Wednesday. [facility] Medical History COPD (chronic obstructive pulmonary disease) HTN (hypertension), benign (HFpEF) heart failure with preserved ejection fraction History of deep vein thrombosis (DVT) of lower extremity Chronic diastolic CHF (congestive heart failure) Chronic kidney disease CHF (congestive heart failure) HTN (hypertension) Home Medications Medication Instructions Recorded Last Taken Type levothyroxine 88 mcg tablet 88 mcg PO DAILY thyroid 01/18/18 04/09/25 History labetalol 200 mg tablet 100 mg PO BID Blood pressure 10/16/19 04/09/25 History melatonin 5 mg capsule 5 mg PO QHS Sleep 10/16/19 04/09/25 History clonidine 0.1 mg/24 hr weekly 1 patch transdermal QWEEK 11/06/23 04/09/25 History transdermal patch Hypertension minoxidil 2.5 mg tablet 2.5 mg PO DAILY Hair 04/09/25 Unknown History nitroglycerin 0.4 mg sublingual 0.4 mg sublingual PRN Chest pain 04/09/25 Unknown History tablet biotin 5 mg capsule 5 mg PO DAILY Supplement 04/10/25 Unknown History dapagliflozin propanediol 5 mg 5 mg PO DAILY Heart Failure 04/10/25 Unknown History tablet (Farxiga) ketoconazole 2 % shampoo 1 applic topical .2-3 times weekly 04/10/25 Unknown History Rash apixaban 2.5 mg tablet (Eliquis) 2.5 mg PO BID 30 days #60 tabs 04/28/25 Unknown Rx nifedipine 60 mg tablet,extended 60 mg PO DAILY 30 days #30 tabs 04/28/25 Unknown Rx release 24 hr oxycodone-acetaminophen 5 mg-325 1 tab PO Q4H PRN PRN Pain 3 days 08/26/25 Unknown Rx mg tablet #18 TABLETS Allergy/AdvReac Type Severity Reaction Status Date / Time iron Allergy Unknown Verified 08/26/25 09:56 pentazocine (From Talwin) Allergy Other Verified 08/26/25 09:56 scopolamine Allergy Other Verified 08/26/25 09:56 amlodipine AdvReac Unknown Significant Verified 08/26/25 09:56 swelling ARB-Angiotensin Receptor AdvReac Unknown BRIGHT/ Verified 08/26/25 09:56 Antagonist Hyperkalemia atorvastatin (From Lipitor) AdvReac Unknown Myalgia Verified 08/26/25 09:56 empagliflozin (From AdvReac Unknown Diarrhea Verified 08/26/25 09:56 Jardiance) hydralazine AdvReac Unknown Intolerance/ Verified 08/26/25 09:56 Nausea hydrochlorothiazide (hctz) AdvReac Unknown Containdication/ Verified 08/26/25 09:56 Hyponatremia losartan AdvReac Unknown BRIGHT with Verified 08/26/25 09:56 elevated potassium and creatinine spironolactone AdvReac Unknown Caused BP Verified 08/26/25 09:56 to go up verapamil AdvReac Unknown GI Upset Verified 08/26/25 09:56 Family History no significant family his Social History Smoking Status: Former smoker ROS ROS ED Constitutional Constitutional ED: Denies chills or fever(s) Musculoskeletal Musculoskeletal: Reports extremity pain; Denies neck pain Integumentary Denies Abrasions, rash or wounds Neurologic Neurologic: Denies paresthesias or weakness EXAM Physical Exam Const Vital Signs: 08/26/25 09:52 Temperature 97.3 F L Temperature Source Temporal Pulse Rate 76 Respiratory Rate 16 Blood Pressure 181/89 H Blood Pressure Mean 119 Pulse Ox 100 Oxygen Delivery Method Room Air Positive well nourished and well developed General Appearance ED: well developed and NAD Neck full ROM and supple Back/Spine normal ROM and normal to inspection Extremity Extremity Narrative: Limited range of motion of the left hip. With passive range she has groin pain but there is no limitation of my ability to passively range the joint she has tenderness in the greater trochanter and the buttock behind it but less so. The thigh compartments are all soft and nondistended and normal-appearing and nontender otherwise. Negative sitting straight leg raise. Edema in both legs symmetric no calf tenderness or palpable cords or signs of cellulitis. Neuro oriented x3, no focal motor deficits and no sensory deficits noted Sensorium / Orientation: alert Psych mental status grossly normal and thought process normal Skin no wounds Rashes: no rashes MDM MDM MDM Narrative Medical decision making narrative: The patient has been experiencing chronic hip pain since May, which is progressively worsening despite a previous steroid injection and oral systemic steroids. She presents today primarily for pain control. She understands that if this is osteoarthritis of the left hip, I may not be able to definitively treat it here, but I can provide acute pain management. We administered a morphine injection, which helped. She also received oral oxycodone and a prescription for oxycodone. We obtained x-rays of the left hip. Based on my interpretation, there appears to be focal osteoarthropathy of the left hip with noticeable asymmetry compared to the right, which shows more cushioning between the ball and socket. Radiology confirms moderately advanced left hip osteoarthrosis and band-like subcapital sclerosis in the left femoral neck. I do not believe this finding is indicative of a fracture. The patient can bear weight on the hip, although it is quite painful. If she does not have a walker, I will write her a prescription for one in addition to the pain medication. She will follow up with her family services specialist at [facility]. Our security system technician has sent the x-rays digitally to their websphere process server developer so her specialist can review them and compare with her prior images. She is comfortable with this plan. Radiography Diagnostic Testing: Clinical Impression(s) from Imaging Studies Hip/Pelvis X-Ray 08/26/25 11:05 IMPRESSION: 1. Bandlike subcapital sclerosis in the left femoral neck, could represent stress-related change. No definite fracture identified. If clinically indicated, a follow-up CT or MRI is suggested to further evaluate. 2. Moderately advanced left hip osteoarthrosis. Reading Location: [facility] Discharge Plan Triage Chief Complaint: Lower Extremity Injury ED Provider: Alberto Bernal Dx/Rx/DC Orders Clinical Impression: Primary osteoarthritis of left hip, Acute pain of left hip Instructions: OA Hip Prescriptions: New oxycodone-acetaminophen 5-325 mg tablet 1 tab PO Q4H PRN PRN (Reason: Pain) 3 Days Qty: 18 0RF No Action levothyroxine 88 MCG tablet 88 mcg PO DAILY labetalol 200 MG tablet 100 mg PO BID melatonin 5 MG capsule 5 mg PO QHS clonidine 0.1 mg/24 hr patch weekly 1 patch transdermal QWEEK Patient Comments: Apply 1 patch topically one time a week as directed minoxidil 2.5 mg tablet 2.5 mg PO DAILY nitroglycerin 0.4 mg tablet, sublingual 0.4 mg sublingual PRN dapagliflozin propanediol [Farxiga] 5 mg tablet 5 mg PO DAILY ketoconazole 2 % shampoo 1 applic topical .2-3 times weekly biotin 5 mg capsule 5 mg PO DAILY Eliquis 2.5 mg tablet 2.5 mg PO BID 30 Days Qty: 60 0RF nifedipine 60 mg Tablet Extended Release 24hr 60 mg PO DAILY 30 Days Qty: 30 0RF Other Ambulatory Orders: Walker (Routine) Location: None Selected Ordered By: Dr. Alberto Bernal Primary Care Provider: Miguelina Capellan Referrals: your orthopaedic [facility] [Other, Orthopedics] - As soon as possible Print Language: Omani Disposition Disposition: Home, Self Care
--- OUTSIDE RECORDS SUMMARY | 2025-08-26 10:53 | XMS RPT_ITS | CCD ---
Author Organization [facility]ini[facility] Care Team Providers Care End User Support Specialist Name Role Phone JAMAL, SCOTTY E Unavailable Unavailable ITIN, LIU Unavailable Unavailable JAMAL, SCOTTY E Unavailable Unavailable SALAY, SUSANNAH M Unavailable Unavailable JAMAL, SCOTTY Unavailable Unavailable SALAY, MELANIE Unavailable Unavailable JAMAL, SCOTTY Unavailable Unavailable SALAY, MELANIE Unavailable Unavailable JAMAL, SCOTTY Unavailable Unavailable ITIN, LIU Unavailable Unavailable SALAY, MELANIE Unavailable Unavailable Susannah Capellan MD Primary Care Provider Win Alfred MD Unavailable Susannah Capellan MD Primary Care Provider Win Alfred MD Unavailable Susannah Capellan MD Primary Care Provider Win Alfred MD Unavailable Susannah Capellan MD Primary Care Provider Win Alfred MD Unavailable Susannah Capellan MD Primary Care Provider Eve Daniel PA-C Unavailable Dr. Susannah Capellan MD Primary Care Provider Serge Mcmullen MD Emergency Provider Godoy DO, Dr. Lainez Admit Provider Unavail able Godoy DO, Dr. Lainez Attending Provider Unav ailable Godoy DO, Dr. Lainez Other Provider Unavail able Dr. Vasile Reyes MD Other Provider [phone] Adilson Melchor DO Attending Provider Amy SERRANO, Dr. Burnette Attending Provider Petey SERRANO, Dr. Ramos Attending Provider Ruiz TOMAS, Dr. De Anda Other Provider ky Tejas , Dr. Lainez Referring Provider Unav stephane Cronin MD, Dr. Parker [facility] Dr. De Anda Admit Provider Saeid SERRANO, Dr. Ariella Lockett Attending Provider Harriett SERRANO, Dr. Handley Other Provider Unavailable Saeid SERRANO, Dr. Ariella Lockett Other Provider Marilia SERRANO, Dr. Mcintyre Primary Care Physician Kemi SERRANO, Serge Emergency Department Physician [facility] , Dr. Lainez Admitting Physician Beatriz vailable [facility], Dr. Lainez Nurse Practitioner Beatrizv stephane Reyes MD, Dr. Burnette Nurse Practitioner [facility] , Dr. De Anda Attending Physician Amy SERRANO, Dr. Burnette Attending Physician Petey SERRANO, Dr. Ramos Attending Physician Ruiz TOMAS, Dr. De Anda Nurse Practitioner Dr. Keith Cronin MD Emergency Department Physician Ruiz TOMAS, Dr. De Anda Admitting Physician Saeid SERRANO, Dr. Ariella Lockett Attending Physician Harriett SERRANO, Dr. Handley Nurse Practitioner Unavailab le Saeid SERRANO, Dr. Ariella Lockett Nurse Practitioner LUCIUS PATRICIO Attending Physician [phone] LUCIUS PATRICIO Referring Provider SUSANNAH CAPELLAN Referring Unavailable SALAY, SUSANNAH M Primary Care Unavailable SALAY, SUSANNAH M Referring Unavailable SALAY, SUSANNAH M Primary Care Unavailable SALAY, SUSANNAH M Referring Unavailable SALAY, SUSANNAH M Primary Care Unavailable PROVIDER, UNKNOWN Referring Unavailable SALAY, SUSANNAH M Primary Care Unavailable AGUSTÍN AGUILAR Admitting Unavailable AGUSTÍN AGUILAR Attending Unavailable SALAY, SUSANNAH M Primary Care Unavailable de Bertha Lazaro Admitting Unavailable de Bertha Lazaro Attending Unavailable Salay, Susannah Primary Care Unavailable Amy, Vasile Consulting Unavailable Bertha Godoy Consulting Unavailable Salay, Susannah Primary Care Unavailable Amy, Vasile Attending Unavailable Richard Angelo Attending Unavailable Salay, Susannah Primary Care Unavailable Bertha Godoy Referring Unavailable Ariella Breaux Attending Unavailable Adilson Melchor Consulting Unavailable Adilson Melchor Admitting Unavailable Salay, Susannah Primary Care Unavailable Emmanuelle Lorenzana Consulting Unavailable Ariella Breaux Consulting Unavailable Adilson Melchor Attending Unavailable Bertha Godoy Admitting Unavailable Salay, Susannah Primary Care Unavailable Amy, Vasile Consulting Unavailable Bertha Godoy Consulting Unavailable Ariella Breaux Attending Unavailable Adilson Melchor Consulting Unavailable Adilson Melchor Admitting Unavailable Salay, Susannah Primary Care Unavailable Jabri, Emmanuelle Consulting Unavailable LAUGHLIN, DA Referring Unavailable LAUGHLIN, DA Attending Unavailable Salay, Susannah Primary Care Unavailable LAUGHLIN, DA Attending Unavailable LAUGHLIN, DA Referring Unavailable Salay, Susannah Primary Care Unavailable LAUGHLIN, DA Referring Unavailable LAUGHLIN, DA Attending Unavailable Salay, Susannah Primary Care Unavailable LAUGHLIN, DA Referring Unavailable LAUGHLIN, DA Attending Unavailable Salay, Susannah Primary Care Unavailable Adilson Melchor Attending Unavailable Adilson Melchor Consulting Unavailable Adilson Melchor Attending Unavailable SALAY, SUSANNAH M Primary Care [...] Unavailable SALAY, SUSANNAH M Primary Care Unavailable MARCO DOAN Referring Unavailable SALAY, SUSANNAH M Primary Care [...] SUSANNAH M Primary Care Unavailable MICHELE, SANLAKISHAEB Referring Unavailabl e SALAY, SUSANNAH M Primary Care Unavailable JITENDRA ESCOBEDO Referring Unavailable SALAY, SUSANNAH M Primary Care Unavailable SALAY, SUSANNAH M Primary Care Unavailable JITENDRA ESCOBEDO Attending Unavailable SALAY, SUSANNAH M Primary Care Unavailable SALAY, SUSANNAH M Referring Unavailable SALAY, SUSANNAH M Primary Care Unavailable SALAY, SUSANNAH M Attending Unavailable SALAY, SUSANNAH M Primary Care Unavailable SALAY, SUSANNAH M Referring Unavailable JOE MCKEON Attending Unavailable SALAY, SUSANNAH M Primary Care Unavailable BEAU YANEZ Attending Unavailable SALAY, SUSANNAH M Primary Care Unavailable SALAY, SUSANNAH M Attending Unavailable SALAY, SUSANNAH M Primary Care Unavailable EVE DANIEL Attending Unavailable SALAY, SUSANNAH M Primary Care Unavailable MICHELE, SANJEEB Referring Unavailabl e MICHELE, SANLAKISHAEB Attending Unavailabl e SALAY, SUSANNAH M Primary Care Unavailable LUCIUS PATRICIO Attending Unavailable MARCO DOAN Attending Unavailable SALAY, SUSANNAH M Primary Care Unavailable SALAY, SUSANNAH M Primary Care Unavailable MICHELE, SANJEEB Referring Unavailabl e MICHELE, SANLAKISHAEB Attending Unavailabl e Allergies Allergy Classification Reported Allergen(s) Allergy Type Date of Onset Reaction(s) Facility amLODIPine (1 source) amLODIPine Drug Allergy Other: See Comments [facility] Work Phone: Angiotensin 2 Receptor Blockers (ARB) (1 source) Losartan Drug Allergy Other: See Comments [facility] Anticholinergics (1 source) Scopolamine Drug Allergy [address] [facility] Work Phone: Calcium Channel Blockers (1 source) Verapamil Drug Allergy [address] [facility] empagliflozin (1 source) empagliflozin Drug Allergy [address] [facility] Work Phone: HMG-CoA Reductase Inhibitors (statins) (1 source) atorvastatin Drug Allergy Myalgia [facility] hydrALAZINE (1 source) hydrALAZINE Drug Allergy Intolerance [facility] Iron (1 source) Iron Drug Allergy [address] [facility] Pentazocine (1 source) Pentazocine Drug Allergy [address] [facility] Spironolactone (1 source) Spironolactone Drug Allergy [address] [facility] (20 sources) iron; Translations: [IRON] Drug Allergy 005 GI Upset [facility] Repository (20 sources) pentazocine; Translations: [PENTAZOCINE LACTATE] Drug Allergy 009 Mental Status Change [facility] Repository (20 sources) scopolamine; Translations: [SCOPOLAMINE] Drug Allergy 012 Mental Status Change [facility] Repository (20 sources) verapamil; Translations: [VERAPAMIL HCL] Drug Allergy 016 GI Upset [facility] Repository (20 sources) amLODIPine; Translations: [AMLODIPINE] Drug Allergy Other: See Comments [facility] Work Phone: (20 sources) atorvastatin; Translations: [ATORVASTATIN] Drug Allergy Myalgia [facility] Work Phone: (20 sources) hydrALAZINE; Translations: [HYDRALAZINE] Drug Allergy Intolerance [facility] (20 sources) Losartan; Translations: [LOSARTAN] Drug Allergy Other: See Comments [facility] Work Phone: (20 sources) Spironolactone; Translations: [SPIRONOLACTONE] Drug Allergy Intolerance [facility] Work Phone: (20 sources) Thiazides; Translations: [THIAZIDES] Drug Intolerance Contraindicati on-Medical Surgical [facility] Work Phone: (20 sources) Thiazides Drug Intolerance 020 Contraindicati on-Medical Surgical [facility] Work Phone: (20 sources) empagliflozin; Translations: [EMPAGLIFLOZIN] Drug Allergy [address] [facility] Work Phone: (6 sources) Pentazocine Drug Allergy 024 Other [facility] (20 sources) Angiotensin II receptor antagonist; Translations: [ARB-ANGIOTENSIN RECEPTOR ANTAGONIST] Propensity to adverse reactions to drug Contraindicati on-Medical [facility] Work Phone: (20 sources) Thiazides Drug Intolerance Contraindicati on-Medical Surgical [facility] (4 sources) hydroCHLOROthiazide Drug Allergy 025 Containdicatio n/ Hyponatremia [facility] (4 sources) Verapamil Drug Allergy 025 GI Upset [facility] (4 sources) ARB-Angiotensin Receptor Antagonist Propensity to adverse reactions 025 BRIGHT/ Hyperkalemia [facility] (1 source) amLODIPine Drug Allergy [facility] Repository (1 source) atorvastatin Drug Allergy [facility] Repository (1 source) empagliflozin Drug Allergy [facility] Repository (1 source) hydrALAZINE Drug Allergy [facility] Repository (1 source) hydroCHLOROthiazide Drug Allergy 025 [facility] Repository (1 source) Losartan Drug Allergy [facility] Repository (1 source) Pentazocine Drug Allergy [facility] Repository (1 source) Spironolactone Drug Allergy [facility] Repository (1 source) Verapamil Drug Allergy [facility] Repository (1 source) ARB-Angiotensin Receptor Antagonist Drug allergy (disorder) [facility] Repository Medications Current Medications Medication Drug Class(es) Dates Sig (Normalized) Sig (Original) amLODIPine 5 mg oral tablet (8 sources) Dihydropyridine Calcium Channel Cecilia Start: 10-18-2019 take 1 tablet by mouth once daily Amlodipine 5 MG tablet Active 5 mg PO DAILY October 18, 2019 1:00am Start: 01-28-2018 End: 02-02-2018 take 1 tablet by mouth once daily Amlodipine 5 MG tablet Discontinued 5 mg PO DAILY 30 0 January 28, 2018 12:00am February 02, 2018 2:18pm apixaban 2.5 mg oral tablet (20 sources) Factor Xa Inhibitor Start: 04-28-2025 End: 07-25-2025 take 1 tablet by mouth twice daily Start: 04-11-2025 End: 04-28-2025 take 1 tablet by mouth twice daily Apixaban (Eliquis) 5 mg tablet Discontinued 5 mg PO TWICE A DAY 60 30 2 April 11, 2025 12:00am April 28, 2025 2:18pm biotin 5 mg oral capsule (20 sources) Start: 04-10-2025 take 1 capsule by mouth once d aily Start: 10-16-2019 End: 10-18-2019 Biotin Discontinued 1 {tbl} DAILY October 16, 2019 1:00am October 18, 2019 1:48pm Start: 10-16-2019 End: 10-18-2019 Biotin Discontinued 1 TABLET DAILY October 16, 2019 12:00am October 18, 2019 12:48pm End: 05-14-2025 take 1 tablet by mouth once daily biotin 5 mg tab Take 5 mg by mouth once daily. 05/14/2025 Discontinued Comment on above: Take 5 mg by mouth o nce daily. cephalexin 500 mg oral capsule (7 sources) Cephalosporin Antibacterial Start: 4 End: 4 take 1 capsule by mouth twice daily [...] Comment on above: Take 1 capsule by [facility] twice daily for 7 days. 168 hr cloNIDine 0.53235 mg/hr transdermal system (20 sources) Central alpha-2 Adrenergic Agonist Start: 01-08-2025 End: 06-25-2025 cloNIDine TTS (CATAPRES-TTS) 0.1 mg/24 hr Indications: Essential hypertension Apply 1 patch as directed one time a week. 12 patch 2 06/25/2025 Active Start: 11-06-2023 Start: 11-06-2023 Clonidine 0.1 mg/24 hr patch [...] (20 sources) Sodium-Glucose Cotransporter 2 Inhibitor Start: 025 take 1 tablet by mouth once daily at breakfast dapagliflozin propanediol (FARXIGA) 5 mg tablet Take 1 tablet by mouth daily with breakfast. 90 tablet 3 05/25/2025 Active Start: 07-03-2024 End: 04-03-2025 take 1 tablet by mouth [...] tablet by rosalinda th daily with breakfast. diclofenac sodium 0.01 mg/mg topical gel (12 sources) Nonsteroidal Anti-inflammatory Drug Start: 06-05-20 apply 2 g topically twice daily diclofenac (VOLTAREN) 1 % topical gel Apply 2 g to affected area two times a day. 200 g 06/05/2025 Active doxycycline monohydrate 100 mg oral tablet (2 sources) Tetracycline-class Drug Start: 06-11-20 End: 06-18-20 take 1 tablet by mouth twice daily [...] rosalinda th twice daily for 10 days. 120 actuat formoterol fumarate 0.0048 mg/actuat / glycopyrrolate 0.009 mg/actuat metered dose inhaler (16 sources) beta2-Adrenergic Agonist Start: 05-31-2025 glycopyrrolate-formoterol (BEVESPI AEROSPHERE) 9-4.8 mcg Indications: Chronic obstructive pulmonary disease, unspecified COPD type ([facility]) Inhale 2 puffs as instructed two times a day. 10.7 g 5 05/31/2025 Active iv contrast (will be provided with radiology [...] contrast administration guidelines link. ketoconazole 20 mg/ml [facility] sh[facility]oo (20 sources) Azole Antifungal Start: 04-10-2025 Start: 11-01-2020 End: 07-26-2024 ketoconazole (NIZORAL) 2 [...] oral tablet (20 sources) beta-Adrenergic Cecilia Start: 4 End: 5 take 1 tablet by mouth [...] tablet 1 02/15/2020 08/12/2020 Discontinued Start: 10-16-2019 Start: 10-16-2019 take 100 mg by mouth twice daily Labetalol Active 100 MG PO TWICE A DAY October 16, 2019 12:31am Start: 02-02-2018 End: 10-16-2019 take 1 tablet by mouth twice daily Labetalol 200 MG tablet Discontinued 200 mg PO TWICE A DAY 60 0 February 02, 2018 12:00am October 16, 2019 1:31am Comment on above: Take 1 tablet by rosalinda th twice daily. Take 1 tablet by rosalinda th two times a day. levothyroxine sodium 0.088 mg oral tablet (20 sources) l-Thyroxine Start: 2017 End: 2024 take 1 tablet by mouth once daily Comment on above: Take 1 tablet by rosalinda th once daily. melatonin 5 mg oral capsule (20 sources) Start: 2018 take 1 capsule by mouth at bedtime Comment on above: Take 1 capsule by mo uth at bedtime as needed. methylPREDNISolone (4 sources) Corticosteroid Start: 2024 methylPREDNISolone (MEDROL DOSE-PACK) 4 mg Dose-Pack Indications: Left hip pain , Trochanteric bursitis of left hip As Instructed per package 21 tablet 06/25/2025 Active minoxidil 2.5 mg oral tablet (20 sources) Arteriolar Vasodilator Start: 2024 take 1 tablet by mouth once daily Start: 07-24-2022 End: 01-09-2025 minoxidil (LONITEN) 2.5 [...] Comment on above: Take 1 tablet by [facility] once daily. NIFEdipine 60 mg osmotic 24 hr extended release oral tablet (6 sources) Dihydropyridine Calcium Channel Cecilia Start: 04-28-2025 End: 05-14-2025 take 1 tablet by mouth once daily nitroglycerin 0.4 mg sublingual tablet (20 sources) Nitrate Vasodilator Start: 03-27-2025 Completed/Discontinued Medications Medication Drug Class(es) Dates Sig (Normalized) Sig (Original) acetaminophen 500 mg oral tablet (6 sources) Start: 01-21-2018 End: 04-10-2025 take 2 tablets by mouth every eight hours Acetaminophen 500 MG tablet Discontinued 1000 mg PO EVERY 8 HOURS 0 January 21, 2018 12:00am April 10, 2025 12:19am Start: 01-21-2018 take 1000 mg by mout h every eight hours Acetaminophen Active 1000 MG PO EVERY 8 HOURS January 20, 2018 11:00pm acetaminophen 325 mg / HYDROcodone bitartrate 5 mg oral tablet (6 sources) Opioid Agonist Start: 01-11-2018 End: 01-14-2018 Hydrocodone-Acetaminophen 1 TABLET tablet Discontinued 1 {tbl} PO EVERY 6 HOURS NEEDED as needed for Pain 8 2 0 January 11, 2018 4:15pm January 14, 2018 4:14pm Contusion of rib on right side Contusion of right front wall of thorax, initial encounter Start: 01-11-2018 End: 01-14-2018 take 1 tablet by mouth every six hours as needed Hydrocodone-Acetaminophen Discontinued 1 TABLET PO EVERY 6 HOURS NEEDED 8 2 January 11, 2018 3:15pm January 14, 2018 3:14pm aspirin 81 mg delayed release oral tablet (19 sources) Platelet Aggregation Inhibitor, Nonsteroidal Anti-inflammatory Drug [...] 18, 2018 12:00am April 11, 2025 12:15pm heart Comment on above: Take 1 tablet by rosalinda th once daily. atenolol 25 mg oral tablet (6 sources) beta-Adrenergic Cecilia Start: 01-22-20 18 End: 01-29-20 take 1 tablet by mouth at bedtime Atenolol 25 MG tablet Discontinued 25 mg PO AT BEDTIME 0 January 21, 2018 12:00am January 28, 2018 4:43pm betamethasone 3 mg/ml / betamethasone acetate 3 mg/ml injectable suspension (1 source) Corticosteroid Start: 11-24-19 End: 11-24-19 betamethasone acetate-betamethason e sodium phosphate 3 mg injection (CELESTONE) Start: 11-24-2022 End: 11-24-2022 betamethasone acetate-betame thasone sodium phosphate 3 mg injection (CELESTONE) budesonide 3 mg delayed release oral capsule (12 sources) Corticosteroid Start: 10-16-2019 End: 10-18-2019 Budesonide 3 MG capsule,delayed,extend.release Discontinued 1 NMA THREE TIMES A DAY October 16, 2019 1:00am October 18, 2019 1:49pm Start: 10-16-2019 End: 04-10-2025 Budesonide 3 MG capsule,kelsey yed,extend.release Discontinued 1 NMA PO THREE TIMES A DAY 0 0 October 18, 2019 1:49pm April 10, [...] 16, 2019 1:00am April 10, 2025 7:50pm Supplement End: 06-26-2024 take 1 capsule by mouth once daily Cholecalciferol, Vitamin D3, 50 mcg (2,000 unit) cap Take 1 capsule by mouth once daily. 06/26/2024 Discontinued (Course of therapy completed) Comment on above: Take 1 capsule by mo [facility] once daily. colchicine 0.6 mg oral [...] Take 1 tablet by rosalinda once daily. Take 1 tablet by rosalinda [...] Supplemt, Lactose-Reduced (Ensure Enlive) 120 ML Liquid (6 sources) Start: 01-21-2018 End: 01-28-2018 take 1 mL by mouth four times daily Food Supplemt, Lactose-Reduced (Ensure Enlive) 120 ML Liquid Discontinued 120 mL PO 4 TIMES DAILY 0 January 21, 2018 12:00am January 28, 2018 [...] 06, 2023 1:00am April 10, 2025 7:50pm Diuretic 20 mg orally Wednesday, Wednesday, Wednesday; Start: [...] Wednesday,Wednesday,Wednesday (0600). gabapentin 100 mg oral capsule (6 sources) Anti-epileptic Agent Start: 2018 End: 2024 [...] Patient) hydrALAZINE hydrochloride 50 mg oral tablet (6 sources) Arteriolar Vasodilator Start: 01-28-2018 End: 02-02-2018 take 1 tablet by mouth three times daily Hydralazine 50 MG tablet Discontinued 50 mg PO THREE TIMES A DAY 90 0 January 28, 2018 12:00am February 02, 2018 2:18pm hydroCHLOROthiazide 25 mg oral tablet (18 sources) Thiazide Diuretic Start: 10-16-2019 End: 04-10-2025 Hydrochlorothiazide 25 MG tablet Discontinued 12.5 mg PO DAILY October 16, 2019 1:31am April 10, 2025 12:38am Start: 10-16-2019 take 12.5 mg by mout h once daily Hydrochlorothiazide Active 12.5 MG PO DAILY October 16, 2019 12:31am Start: 01-18-2018 End: 10-16-2019 take 1 tablet by mouth once daily Hydrochlorothiazide 25 MG tablet Discontinued 25 mg PO DAILY 30 0 January 28, 2018 4:43pm October 16, 2019 1:31am indapamide 2.5 mg oral tablet (20 sources) Thiazide-like Diuretic Start: 04-09-2025 take 1 tablet by mouth once daily Indapamide 1.25 mg tablet Active 1.25 mg PO DAILY April 09, 2025 12:00am Start: 04-03-2025 End: 04-28-2025 take 1 tablet by mouth once daily Indapamide 2.5 mg tablet Discontinued 2.5 mg PO DAILY April 27, 2025 12:00am April 28, 2025 2:18pm Start: 09-02-2022 End: 04-03-2025 take 1 tablet by mouth once daily indapamide (LOZOL) 1.25 mg tablet Take 1 tablet by mouth once daily. 90 tablet 3 08/30/2024 04/03/2025 Discontinued Comment on above: Take 1 tablet by rosalinda th once daily. 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 90 tablet 4 02/18/2021 Active Comment on above: Take 1 tablet by rosalinda th once daily. OLANZapine (4 sources) Atypical Antipsychotic Start: 04-11-20 End: 04-11-20 olanzapine [...] 8 HOURS NEEDED as needed for Nausea 10 0 November 06, 2023 1:00am April 11, 2025 [...] 4 HOURS NEEDED as needed for NAUSEA/VOMITING 30 0 January 28, 2018 12:00am February 02, 2018 [...] 10 mL injection (DEFINITY) polyethylene glycol 3350 88486 mg powder for oral solution (1 source) Osmotic Laxative Start: 0 End: 0 polyethylene glycol 3350 (MIRALAX, GLYCOLAX) 17 gram/dose powder Indications: Colon cancer screening Use as directed for Miralax / Gatorade Bowel Prep Kit 238 g 06/21/2020 07/30/2020 Discontinued (Discontinued by Patient) polyethylene glycol 3350 710551 mg / potassium chloride 2970 mg / sodium bicarbonate 6740 mg / sodium chloride 5860 mg / sodium sulfate 09655 mg powder for oral solution (1 source) [...] oral tablet (1 source) Phenothiazine Start: 06-19-20 20 End: 07-30-20 take 1 tablet by mouth [...] on above: Take 1 capsule by mo [facility] at bedtime as needed for up to 30 days. Do not take with tramadol. traMADol hydrochloride 50 mg oral tablet (7 sources) Opioid Agonist Start: 03-08-20 End: 03-23-20 [...] as needed for Mod-Severe Pain () 24 3 January 21, 2018 12:00am January 28, 2018 4:43pm Start: 01-21-2018 End: 01-28-2018 take 100 mg by mouth every six hours as needed Tramadol Discontinued 100 MG PO EVERY 6 HOURS NEEDED 24 January 20, 2018 11:00pm January 28, 2018 3:43pm Comment on above: Take 1 tablet by [facility] twice daily as needed for pain for up to 15 days. Do not take with temazepam. valsartan 160 mg oral tablet (18 sources) Angiotensin 2 Receptor Cecilia Start: 9 End: 5 take 1 tablet by mouth once daily Valsartan 160 MG tablet Discontinued 160 mg PO DAILY October 16, 2019 1:31am April 10, 2025 12:39am Start: 01-28-2018 End: 10-16-2019 take 1 tablet by mouth twice daily Valsartan 160 MG tablet Discontinued 160 mg PO TWICE A DAY 60 0 January 28, 2018 12:00am October 16, 2019 1:31am Start: 01-18-2018 End: 01-28-2018 take 1 tablet by mouth once daily Valsartan 80 MG tablet Discontinued 80 mg PO DAILY January 18, 2018 12:00am January 28, 2018 4:43pm Problems Active Problems Problem Classification Problem Date Documented Da te Episodic/Chronic Acute myocardial infarction (11 sources) Myocardial infarction; Translations: [Non-ST elevation (NSTEMI) myocardial infarction] Onset: 5 04-10-2025 Chronic Adjustment disorders (2 sources) Reactive depression (situational); Translations: [Adjustment disorder with depressed mood] 01-04-2024 Chronic Allergic reactions (1 source) Solar degeneration; Translations: [Other skin changes due to chronic exposure to nonionizing radiation] 07-26-2024 Episodic Cancer of breast (20 sources) History [...] chronic kidney disease (HCC)] Onset: 0 Chronic obstructive pulmonary disease and bronchiectasis (20 sources) Chronic obstructive lung disease; Translations: [Chronic obstructive pulmonary disease, unspecified] Onset: 5 05-31-2025 Chronic Complications of surgical procedures or medical care (20 sources) Menopausal symptom; 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 Congestive heart failure; nonhypertensive (20 sources) Chronic diastolic heart failure; Translations: [Chronic diastolic (congestive) heart failure] Onset: 0 11-26-2021 Chronic Coronary atherosclerosis and other heart disease (20 sources) Coronary atherosclerosis; Translations: [Atherosclerotic heart disease of [place] coronary artery without angina pectoris] Onset: 3 11-26-2021 Chronic Deficiency and other anemia (20 sources) Anemia co-occurrent and due to chronic kidney disease stage 3; Translations: [Anemia due to stage 3 chronic kidney disease] Onset: 0 04-26-2020 Chronic Deficiency and other anemia (3 sources) Anemia in chronic kidney disease; Translations: [Anemia due to stage 3b chronic kidney disease (HCC)] Onset: 4 Chronic Deficiency and other anemia (3 sources) Deficiency and other anemia; Translations: [Anemia due to stage 3b chronic kidney disease (HCC)] Onset: 4 Disorders of lipid metabolism (6 sources) Hyperlipidemia; Translations: [Hyperlipidemia, unspecified] 02-02-2018 Chronic Essential hypertension (20 sources) Essential (primary) hypertension; Translations: [Essential hypertension] Onset: 7 04-03-2021 Chronic Fluid and electrolyte disorders (20 sources) Hyperkalemia; Translations: [Hyperkalemia] Onset: 0 Resolved: 0 12-15-2019 Episodic Fracture of neck of femur (hip) (6 sources) Fracture of bone of hip region; [...] Translations: [Diffuse cystic mastopathy of unspecified breast] Onset: 5 04-10-2008 Chronic Nutritional deficiencies (20 sources) Vitamin [...] unspecified] Onset: 3 08-06-2023 Chronic Other aftercare (13 sources) Patient encounter status; Translations: [Encounter for therapeutic drug level monitoring] Episodic Other aftercare (1 source) Long-term current use of anticoagulant; Translations: [longterm (current) use of anticoagulants] 06-25-2025 Episodic Other aftercare (1 source) 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 of anticoagulants; Translations: [longterm (current) use of anticoagulants] Onset: 5 Episodic Other and ill-defined cerebrovascular disease (20 sources) Small vessel cerebrovascular disease; Translations: [Other cerebrovascular disease] Onset: 0 10-26-2019 Chronic Other and ill-defined heart disease (20 sources) Left ventricular diastolic dysfunction ; Translations: [Other ill-defined heart diseases] Onset: 5 05-05-2025 Chronic Other and ill-defined heart disease (1 source) Other ill-defined heart diseases; Translations: [Left ventricular diastolic dysfunction, NYHA class 1] Onset: 5 Chronic Other bone disease and musculoskeletal deformities (20 sources) Idiopathic scoliosis; Translations: [Other idiopathic scoliosis, site unspecified] Onset: 3 08-06-2023 Chronic Other circulatory disease (5 sources) Orthostatic hypotension; Translations: [Orthostatic hypotension] 04-27-2025 Episodic Other connective tissue disease (1 source) Trigger thumb of left hand; Translations: [Trigger thumb, left thumb] Episodic Other connective tissue disease (2 sources) Trochanteric bursitis of left hip; Translations: [Trochanteric bursitis, left hip] 06-25-2025 Episodic Other connective tissue disease (1 source) Trochanteric bursitis, left hip; Translations: [Trochanteric bursitis of left hip] Onset: 5 Episodic Other diseases of kidney and ureters (2 sources) Disorder of kidney and/or ureter; Translations: [Other specified disorders of kidney and ureter] 05-14-2025 Chronic Other diseases of kidney and ureters (2 sources) Other specified disorders of kidney and ureter; Translations: [Other specified disorders of kidney and ureter] Onset: 5 Chronic Other diseases of kidney and ureters (20 sources) Kidney lesion; Translations: [Disorder of kidney and ureter, unspecified] Onset: 5 05-02-2025 Episodic Other diseases of kidney and ureters (2 sources) Disorder of kidney and/or ureter 05-14-2025 Episodic Other diseases of kidney and ureters (1 source) Acquired complex renal cyst; Translations: [Cyst of kidney, acquired] 05-14-2025 Episodic Other ear and sense organ disorders [...] field] 04-17-2025 Episodic Other lower respiratory disease (20 sources) Hypoxia; Translations: [Hypoxemia] Onset: 5 04-27-2025 Episodic Other lower respiratory disease (4 sources) Dyspnea; Translations: [Shortness of breath] 05-02-2025 Episodic Other lower respiratory disease (2 sources) Other nonspecific abnormal finding of lung field; Translations: [Lung nodules] Onset: 5 Episodic Other lower respiratory disease (1 source) Shortness of breath; Translations: [SOB (shortness of breath)] Onset: 5 Episodic Other nervous system disorders (20 sources) Disorder of brain; Translations: [Encephalopathy, unspecified] Onset: 0 12-22-2019 Chronic Other non-traumatic joint disorders (1 source) Arthritis of left hip 06-11-2025 Chronic Other non-traumatic joint disorders (12 sources) Hip pain; Translations: [Pain in right hip] 02-02-2018 Episodic Other non-traumatic joint disorders (1 source) Pain of left wrist; Translations: [Pain in left wrist] 12-24-2020 Episodic Other non-traumatic joint disorders (2 sources) Pain in left hip; Translations: [Left hip pain] Onset: 5 Episodic Other screening for suspected conditions (not mental disorders or infectious disease) (20 sources) Inconclusive mammography finding; Translations: [Inconclusive mammogram] Onset: 8 Resolved: 8 Episodic Other upper respiratory disease (6 sources) Allergic rhinitis; Translations: [Allergic rhinitis, unspecified] 02-02-2018 Chronic Other upper respiratory infections (1 source) Pharyngitis; Translations: [Acute pharyngitis, unspecified] Episodic Pulmonary heart disease (20 sources) Pulmonary hypertension, unspecified; Translations: [Other chronic pulmonary heart diseases] Onset: 5 05-01-2025 Chronic Residual codes; unclassified (1 source) Asymptomatic menopausal state; Translations: [Asymptomatic postmenopausal status] Onset: 5 Episodic Retinal detachments; defects; vascular occlusion; and [...] 7 Unclassified (1 source) NO SHOW Unclassified (4 sources) appointment with Eve Levy Unclassified (1 source) Please follow-up immediately within the next 3-5 days with your [place] [employer] Foreman. You may see the ASPHALT PATCHER/PA in their office as well. Unclassified (1 source) Please follow-up with your primary care physician for evaluation following inpatient admission. Please also have a repeat basic metabolic panel and orthostatic vital sign assessment. Unclassified (3 sources) Mild pulmonary hypertension (HCC) 05-02-2025 Unclassified (1 source) Please call [phone] to schedule your appointment. Unclassified (2 sources) Acute embolism and thrombosis of left calf muscular vein; Translations: [Acute deep vein thrombosis (DVT) of calf muscle vein of left lower extremity (HCC)] Onset: 5 Unclassified (1 source) Dense breast; Translations: [Dense breast] Onset: 5 Unclassified (1 source) Demand ischemia (HCC); Translations: [Demand ischemia (HCC)] Onset: 5 Urinary tract infections (1 source) Acute cystitis; Translations: [Acute cystitis without hematuria] 07-03-2024 Episodic Viral infection (7 sources) Verruca vulgaris; Translations: [Viral wart, unspecified] Episodic Past or Other Problems Problem Classification Problem Date Documented Date Episodic/Chronic Abdominal pain (10 sources) Tenderness of epigastrium; Translations: [Epigastric abdominal tenderness] Onset: 5 Episodic Acute and unspecified renal failure (20 sources) Acute renal failure syndrome; Translations: [Acute kidney failure, unspecified] Onset: 0 Resolved: 0 12-15-2019 Episodic Blindness and vision defects (20 sources) [...] Translations: [Palpitations] Onset: 3 Resolved: 8 Episodic Conditions associated with dizziness or vertigo (3 sources) Dizziness; Translations: [Dizziness and giddiness] Onset: 5 04-17-2025 Episodic Deficiency and other anemia (20 sources) Iron deficiency anemia; Translations: [Iron deficiency anemia, unspecified] Onset: 0 12-15-2019 Episodic Deficiency and other anemia (20 sources) Anemia; Translations: [Anemia, unspecified] Onset: 5 Resolved: 8 Episodic Nausea and vomiting (8 sources) Nausea; Translations: [Nausea] Onset: 5 11-06-2023 Episodic Neoplasms of unspecified nature or uncertain [...] Onset: 7 Resolved: 0 11-06-2023 Episodic Other circulatory disease (1 source) Orthostatic hypotension; Translations: [Orthostatic hypotension] Onset: 5 Episodic Other connective tissue disease (20 sources) [...] Resolved: 0 09-19-2020 Episodic Other diseases of kidney and ureters (1 source) Cyst of kidney, acquired; Translations: [Acquired complex cyst of kidney] Onset: 5 Episodic Other diseases of kidney and ureters (1 source) Disorder of kidney and ureter, unspecified; Translations: [Kidney lesion, [place], left] Onset: 5 Episodic Other diseases of veins and lymphatics [...] dermatitis, unspecified] Onset: 6 11-20-2015 Episodic Other lower respiratory disease (2 sources) Hypoxemia; Translations: [Hypoxemia] Onset: 5 Episodic Other nervous system disorders (20 sources) [...] unspecified] Onset: 0 Resolved: 0 09-19-2020 Episodic Pancreatic disorders (not diabetes) (5 sources) Cyst of pancreas; Translations: [Cyst of pancreas] Onset: 5 01-29-2024 Episodic Phlebitis; thrombophlebitis and thromboembolism (11 sources) Acute deep venous thrombosis of calf; Translations: [Acute embolism and thrombosis of left calf muscular vein] Onset: 5 04-17-2025 Episodic Pleurisy; pneumothorax; pulmonary collapse (20 sources) [...] unspecified] Onset: 0 Resolved: 0 10-22-2019 Episodic Screening and history of mental health and substance abuse codes (3 sources) Tobacco use and exposure - finding; Translations: [Personal history of nicotine dependence] Onset: 5 05-14-2025 Episodic Sprains and strains (20 sources) Strain of rotator cuff of shoulder; Translations: [Strain of muscle(s) and tendon(s) of the rotator cuff of unspecified shoulder, initial encounter] Onset: 7 Resolved: 0 09-19-2020 Episodic Thyroid disorders (20 sources) Disorder of thyroid gland; Translations: [Disorder of thyroid, unspecified] Onset: 0 Resolved: 0 09-19-2020 Episodic Unclassified (2 sources) Patient encounter status 04-03-2025 Varicose veins of lower extremity (20 sources) Venous varices; Translations: [Asymptomatic varicose veins of unspecified lower extremity] Onset: 7 08-26-2007 Episodic Results Test Name Value Interpretation Reference Range Facility [facility] ([id number]) 1935 F Date Time Provider Department 08/20/25 SUSANNAH CAPELLAN During your visit today, we recorded the following information about you: Kelsi Deleon RN 08/20/2025 10:15 AM Signed [facility] calling in to request Problem list and medication list to be faxed to [phone] Pt is scheduled for visit on Wednesday08/22/2025 Forms faxed 08/20/2025 Allergies As of Date: 08/20/2025 Noted Allergy Reaction SCOPOLAMINE 10/30/2011 1 - [...] - GI Upset Comments: constipation Date Reviewed: 07/14/2025 Reviewed by: Annmarie Holden MA - Fully Assessed Prescriptions as of 08/20/2025 - oxyCODONE-acetaminophen (PERCOCET) 5-325 mg tablet Take 1-2 tablets by mouth every 8 hours as needed for pain. - lidocaine (LIDODERM) 5 % Apply 1 patch as directed once daily. REMOVE AFTER 12 HOURS. - predniSONE (DELTASONE) 20 mg tablet Take 2 tablets by mouth once daily. - methylPREDNISolone (MEDROL DOSE-PACK) 4 mg Dose-Pack As Instructed per package - cloNIDine TTS (CATAPRES-TTS) 0.1 mg/24 hr Apply 1 patch as directed one time a week. - diclofenac (VOLTAREN) 1 % topical gel Apply 2 g to affected area two times a day. - glycopyrrolate-formoterol (BEVESPI AEROSPHERE) 9-4.8 mcg Inhale 2 puffs as instructed two times a day. - dapagliflozin propanediol (FARXIGA) 5 mg tablet Take 1 tablet by mouth daily with breakfast. - ondansetron (ZOFRAN) 4 mg tablet Take by mouth every 8 hours as needed for nausea/vomiting. - labetalol (TRANDATE) 200 mg tablet Take 1 tablet by mouth two times a day. - nitroglycerin sublingual (NITROQUICK) 0.4 mg SL [...] capsule by mouth at bedtime as needed. Meds Comments as of 10/05/2022: Problem List As Of Date 08/20/2025 Noted Resolved Hypertensive heart and chronic kidney [...] 01/08/2023 hx of breast cancer ER positive (more content not included)... [facility] 08-14-2025 [facility] Telephone (WOUCA) ZENAIDA EVANS ([id number]) 1935 F Date Time Provider Department 08/14/25 MARCO DOAN During your visit today, we recorded the following information about you: Sarah Mcnamara 08/14/2025 12:33 PM Signed Pt requesting disc of XR Left Hip performed on 06/05/2025, please review and advise Christy Rivera, PSS 08/14/2025 4:00 PM Signed PT KNOWS TO LABELING STRATEGIST Christy Rivera, PSS 08/15/2025 8:39 AM Signed CD READY FOR LABELING STRATEGIST AT [facility] Allergies As of Date: 08/14/2025 Noted Allergy Reaction SCOPOLAMINE 10/30/2011 1 - [...] - GI Upset Comments: constipation Date Reviewed: 07/14/2025 Reviewed by: Annmarie Holden MA - Fully Assessed Prescriptions as of 08/19/2025 - oxyCODONE-acetaminophen (PERCOCET) 5-325 mg tablet Take 1-2 tablets by mouth every 8 hours as needed for pain. - lidocaine (LIDODERM) 5 % Apply 1 patch as directed once daily. REMOVE AFTER 12 HOURS. - predniSONE (DELTASONE) 20 mg tablet Take 2 tablets by mouth once daily. - methylPREDNISolone (MEDROL DOSE-PACK) 4 mg Dose-Pack As Instructed per package - cloNIDine TTS (CATAPRES-TTS) 0.1 mg/24 hr Apply 1 patch as directed one time a week. - diclofenac (VOLTAREN) 1 % topical gel Apply 2 g to affected area two times a day. - glycopyrrolate-formoterol (BEVESPI AEROSPHERE) 9-4.8 mcg Inhale 2 puffs as instructed two times a day. - dapagliflozin propanediol (FARXIGA) 5 mg tablet Take 1 tablet by mouth daily with breakfast. - ondansetron (ZOFRAN) 4 mg tablet Take by mouth every 8 hours as needed for nausea/vomiting. - labetalol (TRANDATE) 200 mg tablet Take 1 tablet by mouth two times a day. - nitroglycerin sublingual (NITROQUICK) 0.4 mg SL [...] capsule by mouth at bedtime as needed. Meds Comments as of 10/05/2022: Problem List As Of Date 08/14/2025 Noted Resolved Hypertensive heart and chronic kidney [...] D treated [E55.9] 08/18/2007 Right Breast Cancer [C50 (more content not included)... [facility] [place] - Individual Treatment Pl anon 08-07-2025 [place] - Individual Treatment Plan [facility] Pulmonary Rehab Reports [address] [place] [address] [place] - Individual Treatment Plan MR#: [id number] Acct: [id number] Name: ZENAIDA EVANS Rep #: [id number] : 1935 89 From: Bob Ramos BS, RVT PCP: Dr. Susannah Capellan MD Exercise - Initial Assessment Visit Session Number:: 4 Physician Prescribed Exercise Modalities: Schwinn Airdyne AD-7, SciFit Stepper and SciFit Pro-II Ergometer Current METSs:: 2.1 Target HR:: 98 (85-98) Current RPD:: 2-4 Maximum Exercise HR:: 92 Resting Blood Pressure: 122/54 Maximum Exercise Blood Pressure: 150/70 Minimum SpO2 with exercise: 96 (room air) EKG Type: NSR Nutrition/Wt Mgmt - Initial Visit Session Number:: 4 (Med hold. Nutrition survey score of 2.) Weight Management Admit Height:: 5 ft 6 in Admit Weight:: 154 lb Admit BMI:: 24.8 Nutrition/Wt Mgmt - 30-Day Visit Date of Eval: 08/07/25 Session Number:: 4 (Med hold. Nutrition survey score of 2.) Weight Management Height: 5 ft 6 in Weight:: 154 lb BMI: 24.8 Weight Goals Progress:: Not progressing (Med hold) Nutrition/Wt Mgmt - 60-Day Visit Session Number:: 4 (Med hold. Nutrition survey score of 2.) Weight Management Height: 5 ft 6 in Weight:: 154 lb BMI: 24.8 Nutrition/Wt Mgmt - 90-Day Visit Session Number:: 4 (Med hold. Nutrition survey score of 2.) Weight Management Height: 5 ft 6 in Weight:: 154 lb BMI: 24.8 Nutrition/Wt Mgmt - Final Visit Session Number:: 4 (Med hold. Nutrition survey score of 2.) Weight Management Height: 5 ft 6 in Weight:: 154 lb BMI: 24.8 Psychosocial - Initial Assess Visit Session Number:: 4 (Med hold. Nutrition survey score of 2.) Problems/Goals History of Emotional Disorders: None Psychosocial Goals: 1. Patient is free from overwhelming symtoms of depression (or anxiety, 2. Identifies personal stressors states the strategies for managing, 3. Identifies activities to decrease isolation and/or symptoms of, 4. Improved psychosocial coping skills., 5. Verbalizes coping strategies., 6. Adequate treatment of depression. and 7. Improved Q.O.L. Psychosocial Test Tool Used:: Pulmonary QOL and PHQ-9 Questionnaire PHQ-9 Score: 4 Referral to Behavioral Health PS - Interventions: Yes: Attend Stress Management Classes Intervention/Plan: See List Interventions/Plan:: Assess stressors,coping strategies signs of derpression on admission, Instruct/assist pt to develop coping personal stress Mgt strategies, Refer to Behavioral Health if appropriate, Refer to Physician if appropriate, Instruct patient to recognize signs symptoms of depression and Instruct patient to recog Comments:: [facility] - 30-Day Visit Date of Eval: 08/07/25 Session Number:: 4 ([facility]. Nutrition survey score of 2.) Problems/Goals History of Emotional Disorders: None Psychosocial Goals: 1. Patient is free from overwhelming symtoms of depression (or anxiety, 2. Identifies personal stressors states the strategies for managing, 3. Identifies activities to decrease isolation and/or symptoms of, 4. Improved psychosocial coping skills., 5. Verbalizes coping strategies., 6. Adequate treatment of depression. and 7. Improved Q.O.L. Psychosocial Test Tool Used:: Pulmonary QOL and PHQ-9 Questionnaire PHQ-9 Score: 4 Referral to Behavioral Health PS - Interventions: Yes: Attend Stress Management Classes Plan Interventions/Plan:: Assess stressors,coping strategies signs of derpression on admission, Instruct/assist pt to develop coping personal stress Mgt strategies, Refer to Behavioral Health if appropriate, Refer to Physician if appropriate, Instruct patient to recognize signs symptoms of depression and Instruct patient to recog Comments:: [facility] - 60-Day Visit Session Number:: 4 ([facility] [employer]. Nutrition survey score of 2.) Problems/Goals History of Emotional Disorders: None Psychosocial Goals: 1. Patient is free from overwhelming symtoms of depression (or anxiety, 2. Identifies personal stressors states the strategies for managing, 3. Identifies activities to decrease isolation and/or symptoms of, 4. Improved psychosocial coping skills., 5. Verbalizes coping strategies., 6. Adequate treatment of depression. and 7. Improved Q.O.L. Psychosocial Test Tool Used:: Pulmonary QOL and PHQ-9 Questionnaire PHQ-9 Score: 4 Referral to Behavioral Health PS - Interventions: Yes: Attend Stress Management Classes Plan Interventions/Plan:: Assess stressors,coping strategies signs of derpression on admission, Instruct/assist pt to develop coping personal stress Mgt strategies, Refer to Behavioral Health if appropriate, Refer to Physician if appropriate, Instruct patient to recognize signs symptoms of depression and Instruct patient to recog Comments:: Med hold Psychosocial - 90-Day Visit Session Number:: 4 Problems/Goals History (more content not included)... [facility] BRIEF OP NOTon 07-31-2025 BRIEF OP NOT HNO ID: [id number] Author: AGUSTÍN AGUILAR APRN.CNP Service: Interventional Radiology Author Type: Nurse Practitioner Type: Brief Op Note Filed: 07/31/2025 11:37 Note Text: BRIEF OP NOTE LOG ID: [id number] Surgery/Procedure Date: 07/31/2025 Incision/Procedure Start Time: 11:25 AM Incision Close/Procedure End Time: 11:34 AM Surgeon(s)/Proceduralist(s) and Route Contractor(s): Agustín Aguilar APRN.CNP Procedure(s): Imaging guided left hip pain injection Anesthesia: local 5 ml lidocaine Findings: Successful left hip pain injection of 4cc Bupivacine 0.25% and 80mg Depomedrol. Pre-procedure pain of 6/10 Post-procedure pain of 3/10 Estimated Blood Loss: <1 ml Specimens: None Complications: None Pre-Op/Pre-Procedure Diagnosis: left hip pain Post-Op/Post-Procedure Diagnosis: same SIGNATURE: Agustín Aguilar APRN.CNP PATIENT NAME: Zenaida Evans DATE: July 31, 2025 TIME: 11:35 AM PAGER/CONTACT #: [facility] XR HIP INJECTION LTon 2024 XR HIP INJECTION LT * * *Final Report* * * DATE OF EXAM: Jul 31 2025 11:44AM MDX 5102 - XR HIP INJECTION LT / PROCEDURE REASON: OSTEOARTHRITIS OF LEFT HIP * * * * Physician Interpretation * * * * EXAM TITLE: FLUOROSCOPY GUIDED LEFT HIP INJECTION DATE: 07/31/2025 COMPARISON: None. Procedure Start Time and Sign In Time: 11:25 AM Procedure End Time and Sign Out Time: 11:34 AM CLINICAL INDICATION/HISTORY: The patient is a 89-year-old female with known osteoarthritis and left hip pain. TECHNIQUE: Informed consent was obtained from the patient. The patient was placed in a supine position and the left groin was prepped and draped in a sterile fashion. With fluoroscopy an appropriate skin entry site was identified and anesthetized. A 22-gauge spinal needle was directed into the hip joint and contrast was injected to confirm the intra-articular position of the needle tip. 80 mg Depo-Medrol and 4 cc bupivacaine 0.25% were injected into the hip joint. The hip was exercised. 0 minutes and 36 seconds of fluoroscopy time was utilized during the procedure. There were no apparent complications. FINDINGS: Spot film demonstrates joint space narrowing of the hip. Preprocedure pain was 6 out of 10. Post procedure pain was 3 out of 10. IMPRESSION: Technically successful fluoroscopy guided left hip injection for pain management. Senior Advocate: RUDY Transcribe Date/Time: Jul 31 2025 11:59A Dictated by : AGUSTÍN AGUILAR CNP This examination was interpreted and the report reviewed and electronically signed by: AGUSTÍN AGUILAR CNP on Jul 31 2025 12:00PM EST [id number] [facility] ZENA[facility] EVANS ([id number]) 1935 F Date Time Provider Department 07/25/25 SUSANNAH CAPELLAN During your visit today, we recorded the following information about you: Abena Aviles RN 07/25/2025 1:21 PM Signed Please advise regarding ct scan results. thanks Susannah Capellan MD 07/25/2025 2:26 PM Signed I reached out to Dr. Patricio earlier today and he is going to review and make recommendations. Sally Ha RN 07/25/2025 4:17 PM Signed Patient aware Allergies As of Date: 07/25/2025 Noted Allergy Reaction SCOPOLAMINE 10/30/2011 1 - [...] - GI Upset Comments: constipation Date Reviewed: 07/14/2025 Reviewed by: Annmarie Holden MA - Fully Assessed Reason for Visit: Results [95] Prescriptions as of 07/25/2025 - oxyCODONE-acetaminophen (PERCOCET) 5-325 mg tablet Take 1-2 tablets by mouth every 8 hours as needed for pain. - lidocaine (LIDODERM) 5 % Apply 1 patch as directed once daily. REMOVE AFTER 12 HOURS. - predniSONE (DELTASONE) 20 mg tablet Take 2 tablets by mouth once daily. - ELIQUIS 2.5 mg tab(s) Take 1 tablet by mouth two times a day. - methylPREDNISolone (MEDROL DOSE-PACK) 4 mg Dose-Pack As Instructed per package - cloNIDine TTS (CATAPRES-TTS) 0.1 mg/24 hr Apply 1 patch as directed one time a week. - diclofenac (VOLTAREN) 1 % topical gel Apply 2 g to affected area two times a day. - glycopyrrolate-formoterol (BEVESPI AEROSPHERE) 9-4.8 mcg Inhale 2 puffs as instructed two times a day. - dapagliflozin propanediol (FARXIGA) 5 mg tablet Take 1 tablet by mouth daily with breakfast. - ondansetron (ZOFRAN) 4 mg tablet Take by mouth every 8 hours as needed for nausea/vomiting. - labetalol (TRANDATE) 200 mg tablet Take 1 tablet by mouth two times a day. - nitroglycerin sublingual (NITROQUICK) 0.4 mg SL [...] capsule by mouth at bedtime as needed. Meds Comments as of 10/05/2022: Problem List As Of Date 07/25/2025 Noted Resolved Hypertensive heart and chronic kidney [...] 09/19/2020 Hypothyroid [E03.9] 05/21/2011 09/21/2013 Visit for gynecolo (more content not included)... [facility] US DVT LOWER LTon 07-24-2025 US DVT LOWER LT * * *Final Report* * * DATE OF EXAM: Jul 24 2025 11:11AM MDU 1006 - US DVT LOWER LT / PROCEDURE REASON: I82.462-Acute deep vein thrombosis (DVT) of calf muscle vein of left lower extre * * * * Physician Interpretation * * * * EXAMINATION: LEFT LOWER EXTREMITY DEEP VENOUS ULTRASOUND WITH DOPPLER IMAGING CLINICAL HISTORY: Left hip and leg pain TECHNIQUE: Grayscale with compression maneuvers, color Doppler and spectral Doppler imaging of the left proximal deep veins was performed. Grayscale with compression maneuvers of the peroneal and posterior tibial veins was performed. The left great and small saphenous veins were evaluated at their insertion to the deep system. The contralateral common femoral vein was imaged for comparison. Images were obtained and stored in a permanent archive. MQ: [id number]_1 COMPARISON: None RESULT: LEFT LOWER EXTREMITY PROXIMAL DEEP VEINS Distal External Iliac, Common Femoral and proximal Profunda Veins: Compression: Normal Doppler: Normal, spontaneous respirophasic flow. Normal response to augmentation. Femoral vein: Compression: Normal Doppler: Normal, spontaneous flow. Normal response to augmentation. Popliteal vein: Compression: Normal Doppler: Normal, spontaneous flow. Normal response to augmentation. CALF DEEP VEINS Peroneal veins: Normal compression. Posterior tibial veins: Normal compression. Gastrocnemius and Soleal veins: Not imaged. SUPERFICIAL VEINS Great saphenous: Patent and compressible at insertion into common femoral vein; not otherwise assessed. Small Saphenous: Patent and compressible in the proximal calf, not otherwise assessed. RIGHT LOWER EXTREMITY (FOR COMPARISON) Common Femoral Vein: Compression: Normal Doppler: Normal, spontaneous respirophasic flow. Normal response to augmentation. IMPRESSION: Negative study for proximal DVT in the left lower extremity. Negative study for calf DVT in the left lower extremity, although not optimally visualized. Negative study for superficial thrombophlebitis in the imaged segments of the left lower extremity. Senior Advocate: PSCB Transcribe Date/Time: Jul 24 2025 11:27A Dictated by : CARRIE COATES MD This examination was interpreted and the report reviewed and electronically signed by: CARRIE COATES MD on Jul 24 2025 11:27AM EST [id number] [facility] CT CHEST WO IVCONon 07-18-20 CT CHEST WO IVCON * * *Final Report* * * DATE OF EXAM: Jul 18 2025 11:22AM [facility] 0541 - CT CHEST WO IVCON / PROCEDURE REASON: Lung nodules * * * * Physician Interpretation * * * * EXAMINATION: CHEST CT WITHOUT CONTRAST CLINICAL HISTORY: Follow-up lung nodules Technique: Spiral CT acquisition of the chest from the thoracic inlet to the upper abdomen without contrast. MQ: [id number]_6 CT Radiation dose: Integrated Dose-length product (DLP) for this visit = 149 mGy*cm CT Dose Reduction Employed: Automated exposure control(AEC) and iterative recon Comparison: None RESULT: Limitations: None. Lines, tubes, and devices: None. Lung parenchyma and airways: Evaluation of lung parenchyma demonstrates reticular nodular densities in a tree-in-bud distribution within the inferior right middle lobe. No focal airspace consolidation is seen. There is no bronchiectasis or pneumothorax. Biapical fibrosis is present. Emphysematous changes are present. Pleural space: No pleural effusion. No pleural thickening. Lower neck, lymph nodes, and mediastinum: The imaged thyroid gland is normal. No lymphadenopathy in the supraclavicular, axillary, mediastinal, or hilar regions. Heart, pericardium, and thoracic vessels: The thoracic aorta and main pulmonary artery are normal in caliber. The cardiac chambers are normal in size. No coronary artery atherosclerotic calcifications are noted, although the study is not optimized for coronary assessment. No pericardial effusion or thickening. Bones and soft tissues: No destructive bone lesion. Chest wall is unremarkable. Upper abdomen: No abnormality in the imaged upper abdomen. Localizer images: No additional findings. IMPRESSION: Tree-in-bud nodules in the inferior right middle lobe suggestive of an infectious/inflammatory bronchiolitis. Senior Advocate: RUDY Transcribe Date/Time: Jul 24 2025 7:25A Dictated by : SHARON CRUZ MD This examination was interpreted and the report reviewed and electronically signed by: SHARON CRUZ MD on Jul 24 2025 7:37AM EST [id number] Normal [facility] Lipid 1996 panelon Cholesterol [Mass/Vol] 214 mg/dL High <200 [facility] Comment on above: Order Comment: Speci men Type: BLOOD SPECIMENOrdering Facility: [facility] Address: [address] [place] [address] Result Comment: <200 mg/dL, Desirable 200-239 mg/dL, Borderline high >239 mg/dL, High Performed By: #### 2 4331-1 ####[facility] [id number] [id number] [place] [address] Cholesterol in HDL [Mass/Vol] 104 mg/dL Normal >39 [facility] Comment on above: Order Comment: Speci men Type: BLOOD SPECIMENOrdering Facility: [facility] Address: [address] [place] [address] Result Comment: 40-5 9 mg/dL, Acceptable >59 mg/dL, High: Negative risk factor for coronary heart disease <40 mg/dL, Low: Positive risk factor for coronary heart disease Performed By: #### 2 4331-1 ####[facility] [id number] [id number] [place] [address] [id number] [place] [address] [place] Cholesterol in LDL [Mass/Vol] 101 mg/dL High <100 [facility] Comment on above: Order Comment: Speci men Type: BLOOD SPECIMENOrdering Facility: [facility] Address: [address] [place] [address] Result Comment: <100 mg/dL, Optimal 100-129 mg/dL, Near optimal/above optimal 130-159 mg/dL, Borderline high 160-189 mg/dL, High >189 mg/dL, Very high Secondary prevention optimal LDL Cholesterol levels are recommended to be <70 mg/dL LDL cholesterol is calculated using the Childs-NIH equation. Performed By: #### 2 4331-1 ####[facility] [id number] [address] [id number] [place] [address] [place] [facility] Cholesterol in LDL/Cholesterol in HDL [Mass ratio] 0.97 {ratio} Normal <2.54 [facility] Comment on above: Order Comment: Speci men Type: BLOOD SPECIMENOrdering Facility: [facility] Address: [address] [place] [address] Result Comment: Bebo vzaquez: 1. National Cholesterol Education Program ATP III Guideline At-A-Glance Quick Desk Reference: National Heart, Lung, and Blood [place]. National Institutes of Health. 2001: NIH Publication No. 01-3305. 2. An International Atherosclerosis Society position paper: global recommendations for the management of dyslipidemia: executive summary, Atherosclerosis. 2014: 232(2):410-413. Performed By: #### 2 4331-1 ####[facility] [id number] [address] [id number] [address] [place] Cholesterol in VLDL [Mass/Vol] 8 mg/dL Normal <30 [facility] Comment on above: Order Comment: Speci men Type: BLOOD SPECIMENOrdering Facility: [facility] Address: [address] [place], [place] [address] Performed By: #### 2 4331-1 ####[facility] [id number] [address] [address] [facility] [id number] [place] [address] [place] Cholesterol non HDL [Mass/Vol] 110 mg/dL Normal <130 [facility] Comment on above: Order Comment: Speci men Type: BLOOD SPECIMENOrdering Facility: [facility] Address: [address] [place] [address] Result Comment: <130 mg/dL, Optimal 130-159 mg/dL, Near optimal/above optimal 160-189 mg/dL, Borderline high 190-219 mg/dL, High >219 mg/dL, Very high Secondary prevention optimal non HDL Cholesterol levels are recommended to be <100 mg/dL Performed By: #### 2 4331-1 ####[facility] [id number] [address] [id number] [place] [address] [place] Cholesterol.total/Chol esterol in HDL [Mass ratio] 2.06 {ratio} Normal <5.10 [facility] Comment on above: Order Comment: Speci men Type: BLOOD SPECIMENOrdering Facility: [facility] Address: [address] [place], [place] [address] Performed By: #### 2 4331-1 ####[facility] [id number] [place] [address] [facility] [id number] [place] [address] [place] FASTING TIME 14 hrs Normal [facility] Comment on above: Order Comment: Speci men Type: BLOOD SPECIMENOrdering Facility: [facility] Address: [facility] [place] [id number] Performed By: #### 2 4331-1 ####[facility] [id number] [place] [id number] [facility] [id number] [place] [address] [place] Triglyceride [Mass/Vol] 50 mg/dL Normal <150 [facility] Comment on above: Order Comment: Speci men Type: BLOOD SPECIMENOrdering Facility: [facility] Address: [address] [place] [address] Result Comment: <150 mg/dL, Normal 150-199 mg/dL, Borderline high 200-499 mg/dL, High >499 mg/dL, Very high Performed By: #### 2 4331-1 ####[facility] [id number] [place] [id number] [facility] [id number] [place] [address] [place] [facility] US BREAST LTD RTon 07-17 [facility] US BREAST LTD RT * * *Final Report* * * DATE OF EXAM: Jul 17 2025 2:08PM STEVEN 0594 - [facility] US BREAST LTD RT / PROCEDURE REASON: R92.8-Abnormal mammogram * * * * Physician Interpretation * * * * [place] [address] #[id number] - [facility] US BREAST LTD RT HISTORY: 89 year-old patient presents for diagnostic evaluation of the finding(s) described on prior mammogram in the right breast. The patient has the following personal history of breast cancer: breast cancer in the right breast in 2010. The patient has a family history of breast and ovarian cancer. COMPARISON STUDIES: The present examination has been compared to prior imaging studies dated 07/30/2020 (mammogram), 08/18/2021 (mammogram), 01/05/2023 (mammogram), 01/07/2024 (mammogram), 01/12/2024 (mammogram) and 06/22/2025 (mammogram). ULTRASOUND TECHNIQUE: Targeted ultrasound of the indicated area was performed. Ball scale images were saved. ULTRASOUND FINDINGS: The patient refused additional mammographic evaluation. There is an anechoic elongated structure in front of the surgical clips in the area of concern in the low axillary region. There is flow within it suggesting patency and a vascular nature. This likely accounts for the mammographic finding. The surrounding tissue is unremarkable. There are no suspicious findings in the imaged area. IMPRESSION: Tortuous vessel is felt to account for the mammographic finding. The patient did not want additional mammographic views today. This feature appears benign and the patient can return to annual screening mammography. There are no suspicious sonographic findings in the imaged area. Return to annual screening mammogram is recommended. Annual mammogram will be due in 1 year.She was informed of the findings and recommendations. BI-RADS Category 2: Benign Interpreting Radiologist: Durga Pate M.D. [facility], [place] Electronically signed on: 07/17/2025 Senior Advocate: CORDELIA Transcribe Date/Time: Jul 17 2025 1:56P Dictated by : DURGA PATE MD This examination was interpreted and the report reviewed and electronically signed by: DURGA PATE MD on Jul 17 2025 2:15PM EST [id number] Normal [facility] D dimer FEU PPP-mCncon 07-16 Fibrin D-dimer FEU (PPP) [Mass/Vol] 570 ng/mL FEU High <500 [facility] Comment on above: Order Comment: Speci men Type: BLOOD SPECIMENOrdering Facility: [facility] Address: [address] [place] [address] Performed By: #### 4 8065-7 ####[facility] [id number] [place] [address] [place] [facility] [id number] [place] [address] [place] Fibrin D-dimer FEU (PPP) [Ma ss/Vol]on 07-16-2025 D DIMER AGE-RELATED CUTOFF 890 ng/mL FEU Normal [facility] Comment on above: Order Comment: Speci men Type: BLOOD SPECIMENOrdering Facility: [facility] Address: [address] [place] [address] Performed By: #### 4 8065-7 ####[facility] [id number] [address] [facility] [place] [id number] [address] POTASSIUMon 07-16-2025 Potassium [Moles/Vol] 4.1 mmol/L Normal 3.7-5.1 [facility] Comment on above: Order Comment: Speci men Type: BLOOD SPECIMENOrdering Facility: [facility] Address: [address] [place] [address] Performed By: #### K 1 ####[facility] [id number] [address] CNOVon 07-14-2025 CNOV Office Visit (FAMPBR ) ZENAIDA EVASN ([id number]) 1935 F Date Time Provider Department 07/14/25 11:20 AM BEAU YANEZ FAMPBR During your visit today, we recorded the following information about you: Temperature Pulse Respiration Blood pressure 97.8 degrees 70/minute 16/minute 186/80 Weight Height 61 kg 1.676 m Beau Yanez MD 07/14/2025 12:01 PM Signed Zenaida Cleveland Cristina is a 89 year old female who presents with the following concerns and complaints: The patient is an 89-year-old female with osteoarthritis, presenting for evaluation of worsening left hip pain radiating to the knee. Left Hip Pain: - Onset mid-May. - X-ray showed arthritis; not ypmc-cu-dtpt. - Pain localized to the lateral hip, radiating to the knee and wrapping around the front. - Pain severity ranges from 1-2/10 on prednisone to 10/10 off prednisone. - Pain exacerbated by extension and palpation; no specific tender spot in the back. - Denies pain in the buttocks. - Recent flare-up after completing a second course of prednisone yesterday. - Tried Tylenol and tramadol with no relief; unable to take Aleve due to low kidney function. - Used an old Percocet prescription last night due to severe pain. - Orthopedic physician recommended an injection. MA: - Experienced a mild MA this summer. 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, Face Hypothyroidism Hip Arthritis Vaginal Atrophy Seborrheic Dermatitis Elevated Blood Uric Acid Level Venous Stasis Collagenous Colitis Pleural Effusion Svt (Supraventricular Tachycardia) (Hcc) Cerebral Microvascular Disease Stage 3 Chronic Kidney Disease (Hcc) Iron Deficiency Anemia Encephalopathy Chronic Diastolic (Congestive) Heart Failure (Hcc) Anemia Due to Stage 3b Chronic Kidney Disease (Hcc) H/O Calcium Pyrophosphate Deposition Disease (Cppd) Primary Osteoarthritis of Right Knee Sensorineural Hearing Loss, Bilateral Failure to Thrive in Adult Essential Hypertension Primary Osteoarthritis of First Carpometacarpal Joint of Left Hand Chronic Thoracic Back Pain Degenerative Scoliosis in Adult Patient Idiopathic 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 Patient has a positive extension test at the knee on the left she also has tenderness in the left lateral hip area also in this area - X-ray: Arthritic changes noted in the hip, no owgv-oa-vgnb changes Assessment / Plan: 1. Left sided sciatica (M54.32) 2. Pain of left hip (M25.552) - Severe left hip pain radiating to the knee, with positive extension test and focal tenderness; pain improved with prednisone but worsened after cessation. - X-ray in May showed arthritic changes, but not xdyb-tm-gwrg. - Differential includes sciatica and hip arthritis; possible benefit from injection. - Start prednisone 40 mg daily (2 pills per day) for 7 days; discussed risks of repeated steroid use, including adrenal suppression. - Prescribe lidocaine patches for localized pain relief; instructed to apply for 12 hours on, 12 hours off. - Advised use of Tylenol in combination with Percocet for breakthrough pain if needed. - Refer to spine center for further evaluation of possible sciatica and additional diagnostic workup. - Educated on potential causes of pain, rationale for current management, and importance of follow-up with spine center. 3. Stage 3b chronic kidney disease (HCC) (N18.32) - Advised to avoid NSAIDs due to CKD. Office Visit on 07/14/25 [facility] TO [facility] oxyCODONE-acetaminophen (PERCOCET) 5-325 mg tablet lidocaine (LIDODERM) 5 % predniSONE (DELTASONE) 20 mg tablet - Start prednisone 40 mg once daily for 7 days (take two 20 mg (more content not included)... Normal [facility] [place] - History [place] Physicalon 07-11-2025 [place] - History & Physical [facility] Pulmonary Rehab Reports [address] [place] [address] [place] - History Physical MR#: [id number] Acct: [id number] Name: ZENAIDA EVANS Rep #: [id number] : 1935 89 From: Bob Ramos BS, RVT PCP: Dr. Susannah Capellan MD History of Present Illness General Arrival date:: 07/11/25 Arrival time:: 14:18 Date of Referral:: 06/05/25 Date of Evaluation: 07/11/25 Referring Physician: Dr. Patricio Primary Diagnosis: COPD History of Present Pulmonary Event mMRC Breathless Scale: When is the patient short of breath? Y/N Grade: Description of Breathlessness: N 0 I only get breathless with strenuous exercise. Y 1 I get short of breath when hurrying on level ground or walking up a slight hill. N 2 On level ground, I walk slower than people of the same age because of breathless, or have to stop for breath when walking at my own pace. N 3 I stop for breath after walking 100 yards or after a few minutes on level ground. N 4 I am too breathless to leave the house or I am breathless when dressing. Respiratory Problems: Yes Able to Speak in Full Sentences, Ankle Swelling, Hoarseness and Dyspnea with Activity; No Retain Secretions, Limited Range of Motion, Chest Pain, Fatigue, Wheezing, Dizziness, Anxiety, Panic, Dyspnea at Rest, Dyspnea Lying Down Flat or Cough with Secretions Medications Home Medications levothyroxine 88 mcg tablet 88 mcg PO DAILY thyroid 01/18/18 labetalol 200 mg tablet 100 mg PO BID Blood pressure 10/16/19 melatonin 5 mg capsule 5 mg PO QHS Sleep 10/16/19 clonidine 0.1 mg/24 hr weekly transdermal patch 1 patch transdermal QWEEK Hypertension 11/06/23 minoxidil 2.5 mg tablet 2.5 mg PO DAILY Hair 04/09/25 nitroglycerin 0.4 mg sublingual tablet 0.4 mg sublingual PRN Chest pain 04/09/25 biotin 5 mg capsule 5 mg PO DAILY Supplement 04/10/25 dapagliflozin propanediol 5 mg tablet (Farxiga) 5 mg PO DAILY Heart Failure 04/10/25 ketoconazole 2 % shampoo 1 applic topical .2-3 times weekly Rash 04/10/25 apixaban 2.5 mg tablet (Eliquis) 2.5 mg PO BID 30 days #60 tabs 04/28/25 nifedipine 60 mg tablet,extended release 24 hr 60 mg PO DAILY 30 days #30 tabs 04/28/25 Allergies Allergies iron Allergy (Verified 04/27/25 13:16) Unknown pentazocine (From Talwin) Allergy (Verified 04/27/25 13:16) Other scopolamine Allergy (Verified 04/27/25 13:16) Other amlodipine Adverse Reaction (Unknown, Verified 04/27/25 13:16) Significant swelling ARB-Angiotensin Receptor Antagonist Adverse Reaction (Unknown, Verified 04/27/25 13:16) BRIGHT/ Hyperkalemia atorvastatin (From Lipitor) Adverse Reaction (Unknown, Verified 04/27/25 13:16) Myalgia empagliflozin (From Jardiance) Adverse Reaction (Unknown, Verified 04/27/25 13:16) Diarrhea hydralazine Adverse Reaction (Unknown, Verified 04/27/25 13:16) Intolerance/ Nausea hydrochlorothiazide (hctz) Adverse Reaction (Unknown, Verified 04/27/25 13:16) Containdication/ Hyponatremia losartan Adverse Reaction (Unknown, Verified 04/27/25 13:16) BRIGHT with elevated potassium and creatinine spironolactone Adverse Reaction (Unknown, Verified 04/27/25 13:16) Caused BP to go up verapamil Adverse Reaction (Unknown, Verified 04/27/25 13:16) GI Upset Secretions PM: Yes Sleep Disorder Evaluation Hx of Sleep Apnea: No Do you snore loudly (louder than talking or can be heard through closed doors)?: No Do you often feel tired/ fatigued/ sleepy during daytime?: No Has anyone observed you stop breathing during sleep?: No History of Hypertension (for STOP score): Yes STOP Results: Negative Medical Utilization Medical Devices Do you use a peak flow meter at home?: No Do you use a spacer device with your inhalers?: Yes Medical Utilization Number of hospital visits in the last year?: 1 Number of emergency room visits in the last year?: 1 Do you see your physician on a regular schedule?: No Advanced Directives Advanced Directives Do you have a Healthcare Power of Linen Checker?: Yes Living Will: Yes Advance Directives Information Provided: No Advance Directives on File: No DNR Order?:: No Past Medical History Covid-19 Screening Physicial Symptoms Other Clinical Concerns Exposure Risk Pertinent Comorbidities 65 years or older:: Yes Has a chronic lung disease or moderate to severe asthma:: Yes Has a serious heart condition:: Yes Medical History Medical History Chronic diastolic CHF (congestive heart failure) Chronic kidney disease HTN (hypertension) CHF (congestive heart failure) Significant Family History Family History no significant family his Social History Smoking History Smoking Status: Former smoker Years Smokin (Stopped when she was in her early 30's) Packs Smoked per Day: 0.5 Alcohol Use Alcohol Usage: No Substance Abuse Hx Substance (more content not included)... Normal [facility] [place] - Individual Treatment Pl anon 07-11-2025 [place] - Individual Treatment Plan [facility] Pulmonary Rehab Reports [address] [place] [address] [place] - Individual Treatment Plan MR#: [id number] Acct: [id number] Name: ZENAIDA EVANS Rep #: [id number] : 1935 89 From: Bob Ramos BS, RVT PCP: Dr. Susannah Capellan MD General Information2 General Information Admitting Diagnosis: COPD Gold Classification:: GOLD 2: Moderate PFT FEV1:: 76 FVC:: 91 FEV1/FVC%:: 80 Personal Learning Style/Barriers Personal Learning Style:: Audio/Visual and Written Barriers to Learning: None Stage of change r/t lifestyle modifications: Contemplation Education/Goals [place] Patient Goals: Improve energy level: Initial Assessment and Increase knowledge of oxygen use: Initial Assessment Exercise - Initial Assessment Visit Date of Eval: 07/11/25 (initial eval) Problem/Goals Problems: Deconditioning Goals:: Aerobic exercise 30-60 mins x 12 weeks [36 sessions] Physician Prescribed Exercise Modalities: Treadmill, Rower, Lawrence [place] AD-7, SciFit Stepper, SciFit Pro-II Ergometer and SciFit Lateral [place] Frequency (days/week): 3 Duration (Minutes):: 30-45 Intensity: 60-80% of age predicted maximum heart rate reserve Current METSs:: 2 Target HR:: 98 (85-98) Resting Blood Pressure: 110/56 Minimum SpO2 with exercise: 96 Current Minutes of Exercise: none Plan Plan and Plan to Review:: Benefits of exercise, Core components of exercise, How to measure dyspnea level, How to monitor dyspnea level, Exercise intensity, Exercise safety guideline, Home exercise guidelines and Dylan: 3-4/11-13 Nutrition/Wt Mgmt - Initial Visit Date of Eval: 07/11/25 (initial eval ) Session Number:: 0 (Nutrition survey score of 2) Weight Management Admit Height:: 5 ft 6 in Admit Weight:: 129 lb Admit BMI:: 20.8 Intervention Referral to dietitian:: No Will attend diet classes:: Yes Intervention/Plan: Instruct on ideal BMI set weight loss goal w/patient, Assist pt to ID incorporate diet changes for weight loss by S9, Refer to Structured Weight Loss program as appropriate, Encourage goal of using 250-300dcal per session for weight loss and Other additional plan/interventions Plan Nutrition Plan: Yes: Review BMI or WC identify target wt strategies for wt control, Yes: Nutrition education class:, Yes: Medication education class [Prednisone]:, Yes: Weight control education class:, Yes: Education re: Need for ongoing weight monitoring, Yes: Food diary: and Yes: Physical activity log: Nutrition/Wt Mgmt - 30-Day Visit Session Number:: 0 (Nutrition survey score of 2) Weight Management Height: 5 ft 6 in Weight:: 129 lb BMI: 20.8 Nutrition/Wt Mgmt - 60-Day Visit Session Number:: 0 (Nutrition survey score of 2) Weight Management Height: 5 ft 6 in Weight:: 129 lb BMI: 20.8 Nutrition/Wt Mgmt - 90-Day Visit Session Number:: 0 (Nutrition survey score of 2) Weight Management Height: 5 ft 6 in Weight:: 129 lb BMI: 20.8 Nutrition/Wt Mgmt - Final Visit Session Number:: 0 (Nutrition survey score of 2) Weight Management Height: 5 ft 6 in Weight:: 129 lb BMI: 20.8 Psychosocial - Initial Assess Visit Date of Eval: 07/11/25 (initial eval ) Session Number:: 0 (Nutrition survey score of 2) Problems/Goals History of Emotional Disorders: None Psychosocial Goals: 1. Patient is free from overwhelming symtoms of depression (or anxiety, 2. Identifies personal stressors states the strategies for managing, 3. Identifies activities to decrease isolation and/or symptoms of, 4. Improved psychosocial coping skills., 5. Verbalizes coping strategies., 6. Adequate treatment of depression. and 7. Improved Q.O.L. Psychosocial Test Tool Used:: PHQ-9 Questionnaire PHQ-9 Score: 4 Referred to MD for counseling:: No Referral to Behavioral Health PS - Interventions: Yes: Attend Stress Management Classes Intervention/Plan: See List Interventions/Plan:: Assess stressors,coping strategies signs of derpression on admission, Instruct/assist pt to develop coping personal stress Mgt strategies, Refer to Behavioral Health if appropriate, Refer to Physician if appropriate, Instruct patient to recognize signs symptoms of depression, Instruct patient to recog and Other additional plan/intervention Psychosocial - 30-Day Visit Session Number:: 0 (Nutrition survey score of 2) Problems/Goals History of Emotional Disorders: None Psychosocial Goals: 1. Patient is free from overwhelming symtoms of depression (or anxiety, 2. Identifies personal stressors states the strategies for managing, 3. Identifies activities to decrease isolation and/or symptoms of, 4. Improved psychosocial coping skills., 5. Verbalizes coping strategies., 6. Adequate treatment of depression. and 7. Improved Q.O.L. Psychosocial Test Tool Used:: PHQ-9 Questionnaire PHQ-9 Score: 4 Referred to MD for counseling:: No Referral to Behavioral H (more content not included)... [facility] Visit (ORMDNA ) CRISTINAZENAIDA Cristofer ([id number]) 1935 F Date Time Provider Department 07/06/25 1:15 PM JOE MCKEON During your visit today, we recorded the following information about you: Joe Mckeon MD 08/03/2025 10:15 PM Signed Subjective Zenaidamora Evans is an 89-year-old female, with a history of MA, DVT, and COPD, presenting with left hip pain. Zenaida reports a 6-week history of left hip pain that began in the thigh and groin and has since radiated to the hip and back. The pain is constant, with varying degrees of intensity, and is most comfortable when sitting. Lying down exacerbates the pain, which is localized to the groin, side, and back, and occasionally radiates almost to the knee. The pain interferes with sleep, causing her to wake up at [phone] due to discomfort. She requires assistance from her to perform activities such as putting on shoes and socks. She sought care at an urgent care facility in [place] after one week of symptoms, where she was advised to use Voltaren and underwent an x-ray. She reports minimal relief from Voltaren and tramadol, which she had from a previous incident. She has also tried ice, massage, and chiropractic treatments without significant improvement. She notes that a previous cortisone injection many years ago provided significant relief. Zenaida has a history of a mild MA, DVT in one leg, and COPD, for which she is currently using an inhaler and is recommended for pulmonary rehabilitation. She is on Eliquis for DVT, with plans to discontinue at the end of the month. She denies diabetes and has not been on osteoporosis medications such as Fosamax or Forteo. She reports good bone scan results and has another scan scheduled. Constitutional: (+) sleep disturbance Musculoskeletal: (+) left hip pain, (+) left groin pain, (+) left thigh pain, (+) back pain, (+) pain radiating to left knee, (+) pain with walking, (+) pain with lying down, (+) difficulty putting on shoes Objective There were no vitals taken for this visit. - Musculoskeletal: - Left Hip: - Pain elicited with leg straightening and flexion. - ROM: Flexion to 75 degrees, external rotation to 30 degrees, internal rotation to -10 degrees. - Right Hip: Better range of motion compared to left hip. - Neurological: Sensation intact in lower extremities. Imaging: - X-ray of the left hip (approximately one month ago): Significant narrowing of the left hip joint space, osteophyte formation, and mild lumbar scoliosis observed, consistent with arthritic changes. - Bone scans: Patient reports all prior bone scan evaluations have been normal. Tests: - Pulmonary function test: Abnormal results reported by the patient, suggestive of COPD. Assessment AND Plan 1. Arthritis of left hip (M16.12) Chronic left hip pain with radiographic evidence of joint space narrowing and osteophyte formation consistent with osteoarthritis; pain refractory to topical Voltaren and tramadol. - Start prednisone taper: 4 tablets daily for 2 days, then 3 tablets daily for 2 days, then 2 tablets daily for 2 days, then 1 tablet daily for 2 days, then 1/2 tablet daily for 2 days. - Discussed that NSAIDs are contraindicated while on Eliquis; may consider oral NSAIDs after Eliquis is discontinued at the end of the month. - Order image-guided corticosteroid injection for left hip to be scheduled after July 18, once Eliquis is discontinued. - Discussed that ultimate management may require total hip arthroplasty if conservative measures fail, but this is deferred until cardiac and pulmonary issues are addressed. - Follow-up after hip injection. Recording using [employer] software for draft documentation of the visit was discussed with the patient/authorized in store marketing representative; all questions welcomed and answered. Patient/authorized in store marketing representative agreed to proceed Joe Mckeon MD 08/03/2025 10:15 PM Signed We discussed your hip pain and arthritis: - Your symptoms, including pain in the groin, thigh, and back, as well as difficulty walking and performing daily activities, are consistent with arthritis in your left hip. X-rays show narrowing of the joint space and a bone spur in the left hip, as well as some scoliosis in your lumbar spine. - I recommend a hip injection with cortisone to help reduce inflammation and provide pain relief. This will be scheduled after July 18, once you have stopped taking Eliquis. The help desk team leader will assist you in scheduling this procedure. - In the meantime, I am prescribing a short course of prednisone to help manage your pain until the injection. Please take the prednisone as follows: - Take 4 tablets daily for 2 days. - Then take 3 tablets daily for 2 days. - Then take 2 tablets daily for 2 days. - Continue tapering down as instructe (more content not included)... [facility] Z[facility] ([id number]) 1935 F Date Time Provider Department 06/28/25 HYACINTH ZHENG RADMN During your visit today, we recorded the following information about you: Allergies As of Date: 06/28/2025 Noted Allergy Reaction SCOPOLAMINE 10/30/2011 1 - [...] - GI Upset Comments: constipation Date Reviewed: 06/25/2025 Reviewed by: Susannah Capellan MD - Fully Assessed Reason for Visit: Mammogram Result Call Back [[id number]] Prescriptions as of 06/28/2025 - ELIQUIS 2.5 mg tab(s) Take 1 tablet by mouth two times a day. - methylPREDNISolone (MEDROL DOSE-PACK) 4 mg Dose-Pack As Instructed per package - cloNIDine TTS (CATAPRES-TTS) 0.1 mg/24 hr Apply 1 patch as directed one time a week. - diclofenac (VOLTAREN) 1 % topical gel Apply 2 g to affected area two times a day. - glycopyrrolate-formoterol (BEVESPI AEROSPHERE) 9-4.8 mcg Inhale 2 puffs as instructed two times a day. - dapagliflozin propanediol (FARXIGA) 5 mg tablet Take 1 tablet by mouth daily with breakfast. - ondansetron (ZOFRAN) 4 mg tablet Take by mouth every 8 hours as needed for nausea/vomiting. - labetalol (TRANDATE) 200 mg tablet Take 1 tablet by mouth two times a day. - nitroglycerin sublingual (NITROQUICK) 0.4 mg SL [...] capsule by mouth at bedtime as needed. Meds Comments as of 10/05/2022: Problem List As Of Date 06/28/2025 Noted Resolved Hypertensive heart and chronic kidney [...] Greater trochanteric bursitis of left hip [M70.*08/07/2014 09/19/2020 Hip arthritis [M16.10] 08/07/2014 Left hip impingement (more content not included)... [facility] DBT Breast - bilateral scree annan 06-26-2025 IMPRESSION: Finding 1: Post-operative changes in both breasts are benign. Finding 2: The asymmetry in the superior right breast, posterior depth requires additional evaluation. Diagnostic mammogram with possible ultrasound is recommended. BI-RADS Category 0: Incomplete: Needs Additional Imaging Evaluation REF#[id number]. Interpreting Radiologist: Hyacinth Zheng M.D. Resident/Fellow: Jeb Interiano MD Electronically signed on: 06/26/2025 Senior Advocate: CORDELIA Transcribe Date/Time: Jun 22 2025 2:18P Dictated by: JEB INTERIANO MD This examination was interpreted and the report reviewed and electronically signed by: HYACINTH ZHENG MD on Jun 26 2025 11:20AM [facility] DIVISION OF RADIOLOGY * * *Final Report* * * DATE OF EXAM: Jun 22 2025 2:28PM [facility] 0582 - [facility] SCREENING W MICHELLE / PROCEDURE REASON: Encounter for screening mammogram for high-risk patient * * * * Physician Interpretation * * * * RESULT: [facility] [address] [place] [address] #[id number] - NICOLE SCREENING W MICHELLE HISTORY: 89 year-old patient presents for screening. Patient is asymptomatic in both breasts. The patient has the following personal history of breast cancer: breast cancer in the right breast in 2010. The patient has a family history of breast and ovarian cancer. COMPARISON STUDIES: The present examination has been compared to prior imaging studies dated 07/30/2020 (mammogram), 08/18/2021 (mammogram), 01/05/2023 (mammogram), 01/07/2024 (mammogram) and 01/12/2024 (mammogram). MAMMOGRAM TECHNIQUE: The study was acquired using full field digital technology and interpreted from soft copy. Digital Breast Tomosynthesis (DBT) images were obtained and used to assist in the interpretation of this examination. MAMMOGRAM FINDINGS: The breasts are heterogeneously dense, which may obscure small masses. Finding 1: There are post-operative changes in both breasts. There is a biopsy marker seen in the right breast. Finding 2: There is an asymmetry in the superior right breast, posterior depth. This is best visualized on tomosynthesis MLO view slice # 6. DIVISION OF RADIOLOGY Provider, [facility] - 06/26/2025 * * *Final Report* * * DATE OF EXAM: Jun 22 2025 2:28PM [facility] 0582 - NICOLE SCREENING W MICHELLE / PROCEDURE REASON: Encounter for screening mammogram for high-risk patient * * * * Physician Interpretation * * * * RESULT: [facility] [address] [place] [address] #[id number] - [facility] SCREENING W MICHELLE HISTORY: 89 year-old patient presents for screening. Patient is asymptomatic in both breasts. The patient has the following personal history of breast cancer: breast cancer in the right breast in 2010. The patient has a family history of breast and ovarian cancer. COMPARISON STUDIES: The present examination has been compared to prior imaging studies dated 07/30/2020 (mammogram), 08/18/2021 (mammogram), 01/05/2023 (mammogram), 01/07/2024 (mammogram) and 01/12/2024 (mammogram). MAMMOGRAM TECHNIQUE: The study was acquired using full field digital technology and interpreted from soft copy. Digital Breast Tomosynthesis (DBT) images were obtained and used to assist in the interpretation of this examination. MAMMOGRAM FINDINGS: The breasts are heterogeneously dense, which may obscure small masses. Finding 1: There are post-operative changes in both breasts. There is a biopsy marker seen in the right breast. Finding 2: There is an asymmetry in the superior right breast, posterior depth. This is best visualized on tomosynthesis MLO view slice # 6. IMPRESSION IMPRESSION: Finding 1: Post-operative changes in both breasts are benign. Finding 2: The asymmetry in the superior right breast, posterior depth requires additional evaluation. Diagnostic mammogram with possible ultrasound is recommended. BI-RADS Category 0: Incomplete: Needs Additional Imaging Evaluation REF#[id number]. Interpreting Radiologist: Hyacinth Zheng M.D. Resident/Fellow: Jeb Interiano MD Electronically signed on: 06/26/2025 Senior Advocate: CORDELIA Transcribe Date/Time: Jun 22 2025 2:18P Dictated by: JEB INTERIANO MD This examination was interpreted and the report reviewed and electronically signed by: HYACINTH ZHENG MD on Jun 26 2025 11:20AM EST [facility] DBT Breast - bilateral scree ningOrdered By: [facility] Provider on 06-26-2025 [facility] CNOVon 06-25-2025 CNOV Office Visit (INTMBR ) ZENAIDA EVANS ([id number]) 1935 F Date Time Provider Department 06/25/25 9:40 AM SUSANNAH CAPELLAN During your visit today, we recorded the following information about you: Temperature Pulse Blood pressure Weight 98 degrees 74/minute 145/72 60.5 kg Susannah Capellan MD 06/25/2025 10:43 AM Signed Note created with [employer] Software: Recording using [employer] software for draft documentation of the visit was discussed with the patient/authorized in store marketing representative; all questions welcomed and answered. Patient/authorized in store marketing representative agreed to proceed HPI Zenaida Evans is an 89-year-old female, with a history of HTN, presenting for follow-up. Zenaida reports that her blood pressure has been stable at home, with the most recent reading being 126/61 mmHg. She notes that her systolic blood pressure occasionally fluctuates into the 130s and 120s, but has not exceeded the 140s. She is currently out of clonidine patches and requests a refill, noting that her usual pharmacy, [facility], is unable to supply it, but [facility] [place] can. She has been using her inhaler as prescribed for pulmonary issues, although she expresses a dislike for it. She is considering updating her flu and COVID vaccinations this fall, but prefers to wait until July for the flu shot. Zenaida reports severe left hip pain that started almost a month ago, describing it as "10 out of 10" and "miserable." The pain is located on the outside of the hip and radiates to the thigh, making it difficult for her to put on shoes and walk down stairs. She denies any known injury that could have precipitated the pain. She was seen at urgent care in [place], where an x-ray was performed, but she is unsure of the results. She has an upcoming appointment with Dr. Mckeon in [place] on July 20. She inquires about the possibility of a referral to the [facility] for further evaluation. Zenaida also mentions that she is currently on Eliquis 2.5 mg BID, but is out of the medication and requests a refill. She is confused about the status of her lab tests, specifically the D-dimer and potassium levels, and seeks clarification on when they are due. She expresses a preference for pulmonary rehab over cardiac rehab due to her current hip condition. No problem-specific Assessment AND Plan notes found for this encounter. Musculoskeletal: (+) left hip pain BP 145/72 Pulse 74 Temp 36.7 ?C (98 ?F) (Oral) Wt 60.5 kg (133 lb 6.1 oz) SpO2 97% BMI 21.96 kg/m? General: No acute distress. CV: No carotid bruits, no murmurs, no edema. CV rrr Resp: Lungs clear to auscultation bilaterally. MSK/Ext: Negative straight leg raise, + tenderness over left trochanteric bursa, mild tenderness over iliotibial band, no hip (groin) pain with internal or external rotation. No edema 05/27/2025 6:50 PM - Radiology, Oru In Impression IMPRESSION: Bilateral benign renal cysts, including a benign (Bosniak 2) thinly septated LEFT parapelvic cyst corresponding to the indeterminate sonographic finding. No suspicious renal mass. 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 05/21/2025 12:53 PM - Radiology, Oru In Impression IMPRESSION: Negative study for proximal DVT in the left lower extremity. Negative study for calf DVT in the left lower extremity. Negative study for superficial thrombophlebitis in the imaged segments of the left lower extremity. Left hip: No fractures or dislocations are seen. Severe narrowing of the LEFT hip joint. poor bone density noted on imaging Prior bone density within normal limits 07/2023 Latest Ref Rng AND Units 06/07/2025 05/21/2025 05/09/2025 BMP Glucose 74 - 99 mg/dL 92 109 BUN 7 - 21 mg/dL 36 41 Creatinine 0.58 - 0.96 mg/dL 1.28 1.46 Sodium 136 - 144 mmol/L 140 139 Potassium 3.7 - 5.1 mmol/L 5.2 5.2 4.2 Chloride 98 - 107 mmol/L 105 100 CO2 22 - 30 mmol/L 24 25 Anion Gap 8 - 15 mmol/L 11 14 Calcium 8.5 - 10.2 mg/dL 9.6 10.3 EGFR >=60 mL/min/1.73m? 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 Continue current management. She plans to begin pulmonary rehab. # 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 disease, or chronic kidney disease (HCC) (I13.0) - Clinically stable. Continue current management. Patient to email me some blood pressure readings from home in the next week. Continue current medications. # Kidney lesion, caddo, left (N28.9) - Recent MRI shows stable lesion without worrisome features. No immediate intervention required. 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 # Hyperkalemia (more content not included)... [facility] CNOVon 06-22-2025 CNOV Office Visit ([facility] ) ZENAIDA EVANS ([id number]) 1935 F Date Time Provider Department 06/22/25 2:00 PM JITENDRA ESCOBEDO [facility] During your visit today, we recorded the following information about you: Letitia Flores MA 06/22/2025 1:54 PM Signed Thank you for trusting me with your breast care today. Please remember to schedule your follow-up visit as soon as possible. Discussed breast health recommendations including routine breast self-awareness, clinical breast exams; annual mammography, minimal alcohol use, no tobacco use and 150min / week of aerobic exercise per week as your heart, lungs and joints allow. Wearing a well fitting (as in getting an updated professional fitting if it is has been some time) supportive bra is helpful for most women as well. If you develop a breast lump, breast skin changes, nipple discharge or breast pain, please understand to call her breast health team for a clinical breast exam with the understanding that breast imaging may be recommended at that time. 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 today for annual exam and DBT mammogram. This summer she had mild heart attack, and DVT in left leg. She is now on Eliquis. She has some concern as her O2 Sat levels are sometimes below 90. 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 She is also having left hip pain for 3 weeks for which she is scheduled to see orthopedic surgeon 07/06/25. She has had some weight loss as a result of her health ailments She denies any breast masses, pain, skin changes or nipple discharge. She denies any new family medical problems. 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 She underwent a right NL PM with [...] has been extracted from my note dated 01/07/24. Her vitamin D level was Vitamin D 25 Hydroxy (ng/mL) Date Value 02/28/2018 44.1 She takes vitamin D 2000 units. BMD: Yes, Date in [facility]: 01/02/21; lowest T Score - 0.8-Normal [...] above CANCER SURVEILLANCE: Mammograms: Yes, Date in [facility]: 01/07/24-right breast asymmetry; 01/12/24 diagnostic imaging results: negative Breast MRI: Yes, Date in [facility]: 08/15/12; results - Negative Colonoscopy: Yes, Date in [facility]: 09/08/13; results - Diverticulosis-repeat in 10 [...] 03/13/2011 no retinopathy detected -both eyes - [facility] - return in 1 year - Dr. Ruby hair thinning sees Dr Choudhary Hormone replacement therapy (HRT) 1974-present stopped by 09/2011 hx of low vitamin D treated 08/2007 20.4 recheck only 23 9/08 improved to 54 PMH - PAST MEDICAL HISTORY OF cardiac arrhythmia- resolved with cheryl (more content not included)... [facility] DBT Breast - bilateral leatha mitchell 06-22-2025 Radiology Study observation (narrative) [facility] NICOLE SCREENING W TOMOon 06-22 NICOLE SCREENING W MICHELLE * * *Final Report* * * DATE OF EXAM: Jun 22 2025 2:28PM [facility] 0582 - NICOLE SCREENING W MICHELLE / PROCEDURE REASON: Encounter for screening mammogram for high-risk patient * * * * Physician Interpretation * * * * RESULT: [facility] [address] [place] [address] #[id number] - NICOLE SCREENING W MICHELLE HISTORY: 89 year-old patient presents for screening. Patient is asymptomatic in both breasts. The patient has the following personal history of breast cancer: breast cancer in the right breast in 2010. The patient has a family history of breast and ovarian cancer. COMPARISON STUDIES: The present examination has been compared to prior imaging studies dated 07/30/2020 (mammogram), 08/18/2021 (mammogram), 01/05/2023 (mammogram), 01/07/2024 (mammogram) and 01/12/2024 (mammogram). MAMMOGRAM TECHNIQUE: The study was acquired using full field digital technology and interpreted from soft copy. Digital Breast Tomosynthesis (DBT) images were obtained and used to assist in the interpretation of this examination. MAMMOGRAM FINDINGS: The breasts are heterogeneously dense, which may obscure small masses. Finding 1: There are post-operative changes in both breasts. There is a biopsy marker seen in the right breast. Finding 2: There is an asymmetry in the superior right breast, posterior depth. This is best visualized on tomosynthesis MLO view slice # 6. IMPRESSION: Finding 1: Post-operative changes in both breasts are benign. Finding 2: The asymmetry in the superior right breast, posterior depth requires additional evaluation. Diagnostic mammogram with possible ultrasound is recommended. BI-RADS Category 0: Incomplete: Needs Additional Imaging Evaluation REF#[id number]. Interpreting Radiologist: Hyacinth Zheng M.D. Resident/Fellow: Jeb Interiano MD Electronically signed on: 06/26/2025 Senior Advocate: CORDELIA Transcribe Date/Time: Jun 22 2025 2:18P Dictated by: JEB INTERIANO MD This examination was interpreted and the report reviewed and electronically signed by: HYACINTH ZHENG MD on Jun 26 2025 11:20AM EST [id number] [facility] CNOVon 06-08-2025 CNOV Office Visit (PLFHCW ) ZENAIDA EVANS ([id number]) 1935 F Date Time Provider Department 06/08/25 2:[address] [facility] During your visit today, we recorded the following information about you: Candelaria Edmondson RPFT 06/08/2025 2:17 PM Signed Patient instructed in the purpose, proper use, and care of a metered dose inhaler administration using a valved holding chamber. Discussed proper technique including breathing away from the device, having a slow inspiratory effort with lips sealed tightly around the mouthpiece and without creating the spacer to whistle, breathhold for 10 seconds at full inspiratory effort, and waiting between puffs of medication. Pt demonstrated use of device. Reviewed cleaning of device. Educational materials were given to patient. ILENE Solis Allergies As of Date: 06/08/2025 Noted Allergy Reaction SCOPOLAMINE 10/30/2011 1 - [...] - GI Upset Comments: constipation Date Reviewed: 06/05/2025 Reviewed by: Marco Doan APRN.BUSINESS PROFESSOR - Fully Assessed Primary Visit Diagnosis:Chronic obstructive pulmonary disease, unspecified COPD type (HCC) [J44.9] Prescriptions as of 06/08/2025 - diclofenac (VOLTAREN) 1 % topical gel Apply 2 g to affected area two times a day. - glycopyrrolate-formoterol (BEVESPI AEROSPHERE) 9-4.8 mcg Inhale 2 puffs as instructed two times a day. - dapagliflozin propanediol (FARXIGA) 5 mg tablet Take 1 tablet by mouth daily with breakfast. - ELIQUIS 2.5 mg tab(s) Take 2.5 mg by mouth two times a day. - ondansetron (ZOFRAN) 4 mg tablet Take by mouth every 8 hours as needed for nausea/vomiting. - labetalol (TRANDATE) 200 mg tablet Take [...] capsule by mouth at bedtime as needed. Meds Comments as of 10/05/2022: Problem List As Of Date 06/08/2025 Noted Resolved Hypertensive heart and chronic kidney [...] 09/19/2020 Hypothyroid [E03.9] 05/21/2011 09/21/2013 Visit for (more content not included)... [facility] CNPSharmin 06-07-2025 CNPN Telephone (PULMBR) ZENAIDA EVANS ([id number]) 1935 F Date Time Provider Department 06/07/25 LUCIUS PATRICIO During your visit today, we recorded the following information about you: Jailene Diehl, RN 06/08/2025 9:12 AM Addendum Pt LVM with office, requesting call-back to advise on how to use inhaler prescribed by Dr. Patricio. This RN called pt back - no answer, LVM with instructions to return call. Jailene Diehl, RN 06/08/2025 9:14 AM Signed Spoke with nurse at [facility], who was happy to help coordinate a nurse visit to assist pt with inhaler. Pt notified and appreciative. Allergies As of Date: 06/07/2025 Noted Allergy Reaction SCOPOLAMINE 10/30/2011 1 - [...] - GI Upset Comments: constipation Date Reviewed: 06/05/2025 Reviewed by: Marco Doan APRN.BUSINESS PROFESSOR - Fully Assessed Prescriptions as of 06/08/2025 - diclofenac (VOLTAREN) 1 % topical gel Apply 2 g to affected area two times a day. - glycopyrrolate-formoterol (BEVESPI AEROSPHERE) 9-4.8 mcg Inhale 2 puffs as instructed two times a day. - dapagliflozin propanediol (FARXIGA) 5 mg tablet Take 1 tablet by mouth daily with breakfast. - ELIQUIS 2.5 mg tab(s) Take 2.5 mg by mouth two times a day. - ondansetron (ZOFRAN) 4 mg tablet Take by mouth every 8 hours as needed for nausea/vomiting. - labetalol (TRANDATE) 200 mg tablet Take [...] capsule by mouth at bedtime as needed. Meds Comments as of 10/05/2022: Problem List As Of Date 06/07/2025 Noted Resolved Hypertensive heart and chronic kidney [...] joint [M25.60] 12/02/2011 09/19/2020 Personal history of maligna (more content not included)... [facility] POTASSIUMon 06-07-2025 Potassium [Moles/Vol] 5.2 mmol/L High 3.7-5.1 [facility] Comment on above: Order Comment: Speci men Type: BLOOD SPECIMENOrdering Facility: [facility] Address: [address] [place] [address] Performed By: #### K 1 ####[facility] FAM MILLTOWNCLIA [id number] [address] OF [facility] CNOVon 06-05-2025 CNOV Office Visit (WOUCA) ZENAIDA EVANS ([id number]) 1935 F Date Time Provider Department 06/05/25 2:30 PM MARCO DOAN During your visit today, we recorded the following information about you: Temperature Pulse Respiration Blood pressure 98 degrees 86/minute 16/minute 132/76 Weight 59.4 kg Marco Doan APRN.BUSINESS PROFESSOR 06/05/2025 3:37 PM Signed [facility] Subjective Zenaida Cleveland Cristina is a 89 year old female. Patient presents with: Hip Pain: left hip and thigh pain x 1 week, denies injury HPI Nontoxic-appearing 89-year-old female presents urgent care chief complaint left hip and thigh pain. Duration of symptoms 1 week. Associated symptoms left hip and thigh discomfort. Presents today for evaluation. OTC medications tramadol has not helped. Rates pain 5-6 out of 10. States pain started in front of her thigh has now moved to the right underneath her buttock. No traumatic injuries. No numbness no tingling. No incontinence or saddle anesthesia. No difficulty with ambulation. States pain is 1 out of 10 at rest 5-6 out of 10 with ambulation. No fevers. No rashes. Past medical history prescription medications allergies reviewed Review of Systems Constitutional: Negative for activity change, diaphoresis, fatigue and fever. Musculoskeletal: Negative for arthralgias, back pain, gait problem, joint swelling, myalgias, neck pain and neck stiffness. Hip pain Skin: Negative for pallor, rash and wound. Neurological: Negative for dizziness, seizures, syncope, weakness, light-headedness, numbness and headaches. Psychiatric/Behavioral: Negative for confusion. Objective BP 132/76 Pulse 86 Temp 36.7 ?C (98 ?F) Resp 16 Wt 59.4 kg (130 lb 15.3 oz) SpO2 94% BMI 21.56 kg/m? Physical Exam Constitutional: Appearance: Normal appearance. She is normal weight. HENT: Head: Normocephalic. Eyes: Conjunctiva/sclera: Conjunctivae normal. Cardiovascular: Rate and Rhythm: Normal rate. Pulmonary: Effort: Pulmonary effort is normal. Musculoskeletal: Cervical back: Normal range of motion. Legs: Comments: Point tenderness to palpation highlighted area. No erythema edema noted. No rashes. Mild discomfort with palpation over hip socket Skin: Findings: No rash. Neurological: General: No focal deficit present. Mental Status: She is alert and oriented to person, place, and time. Mental status is at baseline. {ASSESSMENT/PLAN: 1. Pain of left hip - ICD9: 719.45, ICD10: M25.552 - XR HIP GENERAL 3V PELV/AP/LAT LEFT Findings: Moderate bony demineralization. Pelvis: No fractures or dislocations are seen. Left hip: No fractures or dislocations are seen. Severe narrowing of the LEFT hip joint. No acute findings noted on hip x-ray. Severe narrowing of hip joint noted. Muscle skeletal versus osteo arthritis versus referred pain nerve pain. Will treat conservative Voltaren gel. We discussed PCP follow-up and physical therapy. 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 He is currently on Eliquis. We discussed red flag symptoms for ER evaluation. Patient was educated on supportive therapies. Patient will follow up with primary care provider as needed. Patient was instructed to immediately proceed to emergency room for any new, worsening, or symptoms lasting longer than anticipated. The patient's clinical presentation is otherwise unremarkable at this time. Based on exam and clinical finding, the patient is stable for discharge. Plan of care was discussed with patient. Patient verbalizes understanding and agrees to plan of care. This note was generated using [email or web address] software. It may contain errors in wording, punctuation, or spelling. Marco Doan APRN.BUSINESS PROFESSOR History and Record Review Clinical information obtained from an independent historian. History obtained from or confirmed by: parent. External record(s) reviewed: prior outpatient record. Disposition The patient was discharged. OTC Medications were advised: Procedures Allergies As of Date: 06/05/2025 Noted Allergy Reaction SCOPOLAMINE 10/30/2011 1 - [...] Comments: Blood pressure went up TALWIN (PENTAZOCINE (more content not included)... [facility] XR HIP 3V PELV+ AP/LAT LTon 06-05-2025 XR HIP 3V PELV+ AP/LAT LT * * *Final Report* * * DATE OF EXAM: Jun 05 2025 3:04PM WOX [id number] - XR HIP 3V PELV+ AP/LAT LT / PROCEDURE REASON: Pain of left hip * * * * Physician Interpretation * * * * EXAM(s): XR HIP 3V PELV+ AP/LAT LT HISTORY: Indication: Pain of left hip TECHNIQUE: Images: XR HIP 3V PELV+ AP/LAT LT Comparison: None. RESULT: Findings: Moderate bony demineralization. Pelvis: No fractures or dislocations are seen. Left hip: No fractures or dislocations are seen. Severe narrowing of the LEFT hip joint. IMPRESSION: Degenerative changes as discussed Senior Advocate: RUDY Transcribe Date/Time: Jun 05 2025 3:27P Dictated by : DAYANARA REYES DO This examination was interpreted and the report reviewed and electronically signed by: DAYANARA REYES DO on Jun 05 2025 3:28PM EST [id number] [facility] XR Pelvis and Hip - left AP and Lateral frogon 06-05-2025 IMPRESSION: Degenerative changes as discussed Senior Advocate: PSCRizwan Transcribe Date/Time: Jun 05 2025 3:27P Dictated by : DAYANARA REYES DO This examination was interpreted and the report reviewed and electronically signed by: DAYANARA REYES DO on Jun 05 2025 3:28PM EST DIVISION OF RADIOLOGY * * *Final Report* * * DATE OF EXAM: Jun 05 2025 3:04PM WOX [id number] - XR HIP 3V PELV+ AP/LAT LT / PROCEDURE REASON: Pain of left hip * * * * Physician Interpretation * * * * EXAM(s): XR HIP 3V PELV+ AP/LAT LT HISTORY: Indication: Pain of left hip TECHNIQUE: Images: XR HIP 3V PELV+ AP/LAT LT Comparison: None. RESULT: Findings: Moderate bony demineralization. Pelvis: No fractures or dislocations are seen. Left hip: No fractures or dislocations are seen. Severe narrowing of the LEFT hip joint. DIVISION OF RADIOLOGY Provider, [facility] - 06/05/2025 * * *Final Report* * * DATE OF EXAM: Jun 05 2025 3:04PM WOX [id number] - XR HIP 3V PELV+ AP/LAT LT / PROCEDURE REASON: Pain of left hip * * * * Physician Interpretation * * * * EXAM(s): XR HIP 3V PELV+ AP/LAT LT HISTORY: Indication: Pain of left hip TECHNIQUE: Images: XR HIP 3V PELV+ AP/LAT LT Comparison: None. RESULT: Findings: Moderate bony demineralization. Pelvis: No fractures or dislocations are seen. Left hip: No fractures or dislocations are seen. Severe narrowing of the LEFT hip joint. IMPRESSION IMPRESSION: Degenerative changes as discussed Senior Advocate: PSCB Transcribe Date/Time: Jun 05 2025 3:27P Dictated by : DAYANARA REYES DO This examination was interpreted and the report reviewed and electronically signed by: DAYANARA REYES DO on Jun 05 2025 3:28PM EST [facility] Radiology Study observation (narrative) [facility] XR Pelvis and Hip - left AP and Lateral frogOrdered By: Ccf Provider on 06-05-2025 [facility] CNOVon 05-31-2025 CNOV Office Visit (PUMBHT ) ZENAIDA EVANS ([id number]) 1935 F Date Time Provider Department 05/31/25 11:00 AM LUCIUS PATRICIO [facility] During your visit today, we recorded the following information about you: Pulse Blood pressure 62/minute 176/70 Lucius Patricio MD 05/31/2025 11:21 AM Signed PULMONARY MEDICINE CONSULT Patient Name: Zenaida Evans PRIMARY CARE PHYSICIAN: Susannah Capellan MD REASON FOR CONSULT: NEW CONSULT Mild pulmonary hypertension (HCC) [I27.20] Hypoxia [R09.02] SOB (shortness of breath) [R06.02] REQUESTING PHYSICIAN: Susannah Capellan MD My final recommendations will be communicated to the requesting health care provider by way of the shared medical record for internal providers or letter via the [employer] for external providers. ASSESSMENT AND PLAN: I have collected the history from the patient and chart. I have personally examined the patient, and have also independently reviewed the imaging and any available laboratory data. I addressed the questions of the patient, and patient has expressed understanding and acceptance of my answers. (J44.9) Chronic obstructive pulmonary disease, unspecified COPD type (HCC) (primary encounter diagnosis) Comment: Appears to be fairly controlled. We discussed different inhalers mechanism of action and technique of use. We also discussed the three main Goals of Obstructive Lung Disease Management: - Improving Breathing - Optimizing inhaler regimen and technique, quitting smoking when appropriate and O2 therapy if indicated - Improving quality of life - Pulmonary rehab as indicated - Prevention of exacerbations - Immunizations to be up to date, Smoking cessation when appropriate, avoiding sick contacts, Pulm Rehab and will call as soon as he develops early signs of URI or acute exacerbations. Spirometry 05/2025 - Moderate airflow obstruction, FEV1 66%, ++++ Significant bronchodilator response. Lung volumes 05/31/2025 - ++ Air trapping DLCO 44% pred CT CHEST 04/2025 -- No PE, micro nodules in RML ? Chronic. Small < 6 mm nodules Plan: - Start Bevespi inhaler 2 puffs twice daily Please call me with any signs of exacerbations as discussed during the visit Immunization history review: Pneumovax -- 11/2014 Prevnar 13 -- 11/2014 Prevnar 20 -- Optional Influenza -- Recommend annually RSV Vaccine - 11/2023 Pulmonary Rehab -- recommended - will place order for [place] at [facility] Follow Up: Return in about 3 months (around 08/31/2025). Lucius Patricio MD Pulmonary and Critical Care Medicine Staff Director of [facility] Line Prep Cookcompounding pharmacy technician and Pulmonary Rehabilitation - [facility] 05/31/2025 CHIEF COMPLAINT: Shortness of Breath/E HISTORY OF PRESENT ILLNESS: 05/31/2025 Zenaida Evans is a 89 year old female, with a medical history of , has a past medical history of Breast cancer (HCC) (09/2011), Collagenous colitis (07/30/2017), Diarrhea, Diffuse cystic mastopathy, Dyspareunia, Essential hypertension, H/O complete eye exam (03/13/2011), hair thinning, Hormone replacement therapy (HRT) (1974-present), hx of low vitamin D treated (08/2007), PMH - PAST MEDICAL HISTORY OF, Stage 2 moderate chronic obstructive pulmonary disease by Global Initiative for Chronic Obstructive Lung Disease classification (HCC) (05/28/2025), Stage 3 chronic kidney disease (HCC) (11/22/2019), Symptomatic states associated with artificial menopause (1974), Vaginal atrophy (08/2015), and Vaginismus. who is here for evaluation and management of Shortness of Breath/E. PCP visit note 05/14/25 Zenaida Evans is a 89 year old female seen for Hospital Follow up. Zenaida Evans is a 89-year-old female, with a history of HFpEF, DVT, and orthostatic hypotension, presenting for follow-up after recent hospitalizations. Zenaida was recently hospitalized in [place] from April 27 through April 29 for BRIGHT and orthostatic hypotension. During this admission, she was also found to have hypoxia with SpO2 levels dropping to 85% in the ED. A heart catheterization on a prior admission revealed no significant stenosis, but a DVT was identified. She followed up with her technical support agent, Dr. Bautista, on May 07, who recommended continuing Farxiga 5 mg daily and discontinuing indapamide. She was also advised to establish care with a digital forensics examiner, which she has done with Dr. Patricio in [place] (who she will first see in [facility]). Zenaida reports ongoing occasional lightheadedness and dizziness, particularly in the first half of the day, which improves by mid-afternoon. She initially suspected these symptoms might be related to Eliquis or low oxygen levels but no (more content not included)... [facility] Cardiac Cath [facility] Cardiac Cath Diagnostic [facility] Imaging Services [address] [place] [address] Cardiac Cath Diagnostic MR#: [id number] Acct: [id number] Name: ZENAIDA EVANS Rep #: [id number] : 1935 89 From: Vasile Reyes MD PCP: Dr. Susannah Capellan MD Status:DIS IN Patient Name: ZENAIDA EVANS Study Date: 04/10/2025 Performing: Vasile Reyes MD Ht: 66 inches 167.64 cm : 1935 Wt: 124.98 lbs 56.69 kg Age: 89 Gender: female BSA: 1.64 PROCEDURE(S) PERFORMED DC02-([id number])[facility]/COR CLINICAL PROFILE AND INDICATIONS Indications: Suspected CAD Heart Failure: None Stress/Imaging Stress/Image Study Performed: No CAD Presentations: Unstable angina. CONCLUSIONS Non obstructive coronary arteries Hypertension RECOMMENDATIONS Medical therapy DESCRIPTION OF PROCEDURE The patient arrived to the procedure lab. The risks and benefits of the procedure as well as a full description of our services here and current unavailability of surgical backup were fully explained to the patient and/or their significant other prior to the catheterization. The Timeout was completed, verifying the correct patient and procedure. The patient's procedural site was prepped and draped in the usual fashion. Local anesthetic was given subcutaneously to right radial region with Lidocaine 2%. Using a modified Seldinger technique, arterial access was obtained via the right radial artery, a 6Fr sheath was inserted. Left Coronary Artery selective angiography was performed in multiple views using a 5 Fr. 4.0 [place] catheter. Right Coronary Artery selective angiography was then performed in multiple views using a 5 Fr. 4.0 [place] catheter.The arterial sheath was pulled and a TR Band was applied for hemostasis 9 ml of air CORONARY ANGIOGRAPHY DOMINANCE: Right Dominant LEFT HEART ASSESSMENT Left Ventricular Ejection Fraction: by Echo 65 % Normal LV wall motion Normal Left Ventricular systolic function LEFT ANTERIOR DESCENDING ARTERY: Moderate luminal irregularities up to 50% CIRCUMFLEX ARTERY: Mild luminal irregularities less than 30% RIGHT CORONARY ARTERY: Mild luminal irregularities less than 30% COMPLICATIONS No Complications PROCEDURE MEDICATIONS Fentanyl 50 mcg IV Versed 1 mg IV Oxygen: 2 L/min via nasal cannula Heparin given IA 04/10/2025 12:46:34 Verapamil 2.5mg, Ntg 100mcgs, 3000 units of Heparin given IA 04/10/2025 12:46:34 SUMMARY OF HEMODYNAMIC DATA Time AIR REST ECG 12:23:11 AO 151/56 (94) SA 12:55:45 Signed By Vasile Reyes MD On 04/10/2025 13:06:58 Vasile Reyes MD 05/28/25 0945 Date Vasile Reyse MD Cosigner Signature: Date (if indicated) CC: Dr. Adilson Melchor DO; Dr. Vasile Reyes MD; Dr. Susannah Capellan MD Date Dictated: 04/10/25 1236 Date Transcribed: 04/10/25 1306 Senior Advocate: CO Signed Normal [facility] LUNG DIFFUSION CAPACITY (LUZ O)on 05-25-2025 LUNG DIFFUSION CAPACITY (DLCO) [facility] [address] [place] [id number] Test Date: 2025-05-25 Pat Name: ZENAIDA EVANS Department: Room: Gender: Female Breaker Machine Operator: : 1935 Requested By: Order Number: [id number] Reading MD: Susannah Killian MD Interpretive Statements Medications and Allergies were reviewed for possible drug interactions per policy. No contraindications or sensitivities were noted. Meds taken: No inhaled respiratory medications taken before testing. 4 puffs Albuterol (360 mcg) delivered by MDI via holding chamber. HR pre = 71/min, HR post = 71/min. Current ATS/ERS acceptability and repeatability standards for spirometry met. Start of test and EOFE criteria met. Current ATS/ERS acceptability and repeatability standards for DLCO met with 2 acceptable maneuvers. FRC is repeatable. IMPRESSION: Spirometry indicates moderate obstruction. The increase in FEF 25-75 post-bronchodilator reflects an improvement in the small airway obstruction. Elevated lung volumes (RV and/or RV/TLC) indicate air trapping. The diffusing capacity (corrected for hemoglobin) is reduced. The reduced kCO (DLCO/VA) reflects an alteration of the normal transfer/diffusion of CO from the alveolar regions to the blood. Clinical correlation recommended. Electronically Signed On 05-25-2025 15:34:50 EDT by Susannah Killian MD ID: [id number] Name: ZENAIDA EVANS Race: White Ht: 65.35 in Wt: 132.60 lbs Age: 89 Gender: Female : 1935 Dx: Shortness of breath Smoking Hx: Non-smoker Doctor: SUSANNAH CAPELLAN Test Date: 05/25/2025 Site: Tech: Candelaria Edmondson PRE-BRONCH POST-BRONCH Pratima LLN Pred ULN %Pred ZScore Pratima %Pred %Chg ZScore SPIROMETRY FVC 2.00 1.72 2.54 3.40 78 -1.07 2.34 91 13 -0.40 FEV1 1.26 1.25 1.89 2.48 66 -1.62 1.45 76 9 -1.15 FEV1/FVC 0.63 0.63 0.77 0.88 81 -1.62 0.62 80 -1 -1.72 FEFMax 3.70 2.28 4.06 5.84 91 -0.33 3.99 98 7 -0.06 FEF50 0.80 1.15 2.76 4.36 29 -2.00 1.15 41 43 -1.64 FIF50 1.35 2.19 62 FEF50/FIF50 0.59 90-100 0.53 -11 FIVC 1.96 2.04 4 JKV13-17 0.65 0.52 1.37 2.73 47 -1.33 0.97 70 49 -0.66 ExpiredTime 5.39 6.80 26 TimeToFEFMax 0.12 0.10 -21 FLO 0.08 0.07 -17 VolExtrap% 4 3 -29 LUNG VOLUMES FRC(Pleth) 3.90 2.15 3.01 4.10 129 1.36 ERV 1.09 0.85 128 RV(Pleth) 3.61 1.31 2.29 3.58 157 1.68 SVC 1.94 1.72 2.54 3.40 76 -1.20 IC 0.85 1.69 49 TLC(Pleth) 5.08 3.95 5.09 6.40 99 -0.01 RV/TLC(Pleth) 71 31 46 61 156 2.73 LUNG DIFFUSION DLCOunc 8.23 13.39 18.40 24.72 44 -3.93 DLCOStdPB 8.09 13.39 18.40 24.72 43 -4.00 DLCORefHb 8.09 17.09 47 VA 3.59 3.57 4.56 5.66 78 -1.61 Kco 2.25 2.97 3.97 5.11 56 -3.00 Hgb 11.30 12-18 Comments: Medications and Allergies were reviewed for possible drug interactions per policy. No contraindications or sensitivities were noted. Meds taken: No inhaled respiratory medications taken before testing. 4 puffs Albuterol (360 mcg) delivered by MDI via holding chamber. HR pre = 71/min, HR post = 71/min. Current ATS/ERS acceptability and repeatability standards for spirometry met. Start of test and EOFE criteria met. Current ATS/ERS acceptability and repeatability standards for DLCO met with 2 acceptable maneuvers. FRC is repeatable. [facility] LUNG VOLUMESon 05-25-2025 LUNG VOLUMES [facility] [address] [place] [address] Test Date: 2025-05-25 Pat Name: ZENAIDA EVANS Department: Room: Gender: Female Breaker Machine Operator: : 1935 Requested By: Order Number: [id number] Reading MD: Susannah Killian MD Interpretive Statements Medications and Allergies were reviewed for possible drug interactions per policy. No contraindications or sensitivities were noted. Meds taken: No inhaled respiratory medications taken before testing. 4 puffs Albuterol (360 mcg) delivered by MDI via holding chamber. HR pre = 71/min, HR post = 71/min. Current ATS/ERS acceptability and repeatability standards for spirometry met. Start of test and EOFE criteria met. Current ATS/ERS acceptability and repeatability standards for DLCO met with 2 acceptable maneuvers. FRC is repeatable. IMPRESSION: Spirometry indicates moderate obstruction. The increase in FEF 25-75 post-bronchodilator reflects an improvement in the small airway obstruction. Elevated lung volumes (RV and/or RV/TLC) indicate air trapping. The diffusing capacity (corrected for hemoglobin) is reduced. The reduced kCO (DLCO/VA) reflects an alteration of the normal transfer/diffusion of CO from the alveolar regions to the blood. Clinical correlation recommended. Electronically Signed On 05-25-2025 15:34:50 EDT by Susannah Killian MD ID: [id number] Name: ZENAIDA EVANS Race: White Ht: 65.35 in Wt: 132.60 lbs Age: 89 Gender: Female : 1935 Dx: Shortness of breath Smoking Hx: Non-smoker Doctor: SUSANNAH CAPELLAN Test Date: 05/25/2025 Site: Tech: Candelaria Edmondson PRE-BRONCH POST-BRONCH Pratima LLN Pred ULN %Pred ZScore Pratima %Pred %Chg ZScore SPIROMETRY FVC 2.00 1.72 2.54 3.40 78 -1.07 2.34 91 13 -0.40 FEV1 1.26 1.25 1.89 2.48 66 -1.62 1.45 76 9 -1.15 FEV1/FVC 0.63 0.63 0.77 0.88 81 -1.62 0.62 80 -1 -1.72 FEFMax 3.70 2.28 4.06 5.84 91 -0.33 3.99 98 7 -0.06 FEF50 0.80 1.15 2.76 4.36 29 -2.00 1.15 41 43 -1.64 FIF50 1.35 2.19 62 FEF50/FIF50 0.59 90-100 0.53 -11 FIVC 1.96 2.04 4 SGU77-83 0.65 0.52 1.37 2.73 47 -1.33 0.97 70 49 -0.66 ExpiredTime 5.39 6.80 26 TimeToFEFMax 0.12 0.10 -21 FLO 0.08 0.07 -17 VolExtrap% 4 3 -29 LUNG VOLUMES FRC(Pleth) 3.90 2.15 3.01 4.10 129 1.36 ERV 1.09 0.85 128 RV(Pleth) 3.61 1.31 2.29 3.58 157 1.68 SVC 1.94 1.72 2.54 3.40 76 -1.20 IC 0.85 1.69 49 TLC(Pleth) 5.08 3.95 5.09 6.40 99 -0.01 RV/TLC(Pleth) 71 31 46 61 156 2.73 LUNG DIFFUSION DLCOunc 8.23 13.39 18.40 24.72 44 -3.93 DLCOStdPB 8.09 13.39 18.40 24.72 43 -4.00 DLCORefHb 8.09 17.09 47 VA 3.59 3.57 4.56 5.66 78 -1.61 Kco 2.25 2.97 3.97 5.11 56 -3.00 Hgb 11.30 12-18 Comments: Medications and Allergies were reviewed for possible drug interactions per policy. No contraindications or sensitivities were noted. Meds taken: No inhaled respiratory medications taken before testing. 4 puffs Albuterol (360 mcg) delivered by MDI via holding chamber. HR pre = 71/min, HR post = 71/min. Current ATS/ERS acceptability and repeatability standards for spirometry met. Start of test and EOFE criteria met. Current ATS/ERS acceptability and repeatability standards for DLCO met with 2 acceptable maneuvers. FRC is repeatable. Normal [facility] SPIROMETRY - BASELINE AND PO ST DILATORon 05-25-2025 SPIROMETRY - BASELINE AND POST DILATOR [facility] [address] [address] Test Date: 2025-05-25 Pat Name: ZENAIDA EVANS Department: Room: Gender: Female Breaker Machine Operator: : 1935 Requested By: Order Number: [id number] Reading MD: Susannah Killian MD Interpretive Statements Medications and Allergies were reviewed for possible drug interactions per policy. No contraindications or sensitivities were noted. Meds taken: No inhaled respiratory medications taken before testing. 4 puffs Albuterol (360 mcg) delivered by MDI via holding chamber. HR pre = 71/min, HR post = 71/min. Current ATS/ERS acceptability and repeatability standards for spirometry met. Start of test and EOFE criteria met. Current ATS/ERS acceptability and repeatability standards for DLCO met with 2 acceptable maneuvers. FRC is repeatable. IMPRESSION: Spirometry indicates moderate obstruction. The increase in FEF 25-75 post-bronchodilator reflects an improvement in the small airway obstruction. Elevated lung volumes (RV and/or RV/TLC) indicate air trapping. The diffusing capacity (corrected for hemoglobin) is reduced. The reduced kCO (DLCO/VA) reflects an alteration of the normal transfer/diffusion of CO from the alveolar regions to the blood. Clinical correlation recommended. Electronically Signed On 05-25-2025 15:34:50 EDT by Susannah Killian MD ID: [id number] Name: ZENAIDA EVANS Race: White Ht: 65.35 in Wt: 132.60 lbs Age: 89 Gender: Female : 1935 Dx: Shortness of breath Smoking Hx: Non-smoker Doctor: SUSANNAH CAPELLAN Test Date: 05/25/2025 Site: Tech: Candelaria Edmondson PRE-BRONCH POST-BRONCH Pratima LLN Pred ULN %Pred ZScore Pratima %Pred %Chg ZScore SPIROMETRY FVC 2.00 1.72 2.54 3.40 78 -1.07 2.34 91 13 -0.40 FEV1 1.26 1.25 1.89 2.48 66 -1.62 1.45 76 9 -1.15 FEV1/FVC 0.63 0.63 0.77 0.88 81 -1.62 0.62 80 -1 -1.72 FEFMax 3.70 2.28 4.06 5.84 91 -0.33 3.99 98 7 -0.06 FEF50 0.80 1.15 2.76 4.36 29 -2.00 1.15 41 43 -1.64 FIF50 1.35 2.19 62 FEF50/FIF50 0.59 90-100 0.53 -11 FIVC 1.96 2.04 4 TCM41-82 0.65 0.52 1.37 2.73 47 -1.33 0.97 70 49 -0.66 ExpiredTime 5.39 6.80 26 TimeToFEFMax 0.12 0.10 -21 FLO 0.08 0.07 -17 VolExtrap% 4 3 -29 LUNG VOLUMES FRC(Pleth) 3.90 2.15 3.01 4.10 129 1.36 ERV 1.09 0.85 128 RV(Pleth) 3.61 1.31 2.29 3.58 157 1.68 SVC 1.94 1.72 2.54 3.40 76 -1.20 IC 0.85 1.69 49 TLC(Pleth) 5.08 3.95 5.09 6.40 99 -0.01 RV/TLC(Pleth) 71 31 46 61 156 2.73 LUNG DIFFUSION DLCOunc 8.23 13.39 18.40 24.72 44 -3.93 DLCOStdPB 8.09 13.39 18.40 24.72 43 -4.00 DLCORefHb 8.09 17.09 47 VA 3.59 3.57 4.56 5.66 78 -1.61 Kco 2.25 2.97 3.97 5.11 56 -3.00 Hgb 11.30 12-18 Comments: Medications and Allergies were reviewed for possible drug interactions per policy. No contraindications or sensitivities were noted. Meds taken: No inhaled respiratory medications taken before testing. 4 puffs Albuterol (360 mcg) delivered by MDI via holding chamber. HR pre = 71/min, HR post = 71/min. Current ATS/ERS acceptability and repeatability standards for spirometry met. Start of test and EOFE criteria met. Current ATS/ERS acceptability and repeatability standards for DLCO met with 2 acceptable maneuvers. FRC is repeatable. FVC_PRE (L) : 2.00 L FVC_POST (L) : 2.34 L FVC_PRED (L) : 2.54 L FVC_LLN (L) : 1.72 L FVC_ULN (L) : 3.40 L FEV1_PRE (L) : 1.26 L FEV1_POST (L) : 1.45 L FEV1_PRED (L) : 1.89 L FEV1_LLN (L) : 1.25 L FEV1_ULN (L) : 2.48 L FEV1/FVC_PRE (%) : 63 % FEV1/FVC_POST (%) : 62 % FEV1/FVC_PRED (%) : 77 % FEV1/FVC_LLN (%) : 63 % LDC77_EBK (L/S) : 2.56 L/S DJX63_DUCC (L/S) : 3.35 L/S DMP36_DMH (L/S) : 0.32 L/S WTC42_ZRPK (L/S) : 0.47 L/S NDX56_UTXW (L/S) : 0.28 L/S QLJ34_WTF (L/S) : 0.09 L/S WAE45_QVO (L/S) : 0.94 L/S QFE86-92%_PRE (L/S) : 0.65 L/S CJU42-73%_POST (L/S) : 0.97 L/S SNL82-40%_PRED (L/S) : 1.37 L/S DIW55-15%_LLN (L/S) : 0.52 L/S PEF_PRE (L/S) : 3.70 L/S PEF_POST (L/S) : 3.99 L/S PEFMAX_LLN (L/S) : 2.28 L/S PEFMAX_ULN (L/S) : 5.84 L/S VC BOX (L) : 1.94 L SVC_PRED (L) : 2.54 L/S SVC_LLN (L) : 1.72 L/S SVC_ULN (L/S) : 3.40 L/S IC BOX (L) : 0.85 L IC_PRED (L) : 1.69 L/S ERV BOX (L) : 1.09 L ERV_PREDICTED (L) : 0.85 L/S DLCO (ML/MIN/MMHG) : 8.23 ml/min/mmHg DLCO_PRED (ML/MIN/MMHG) : 18.40 ml/min/mmHg DLCO_LLN(ML/MIN/MMHG) : 13.39 ml/min/mmHg DLCO_ULN (ML/MIN/MMHG) : 24.72 ml/min/mmHg FET_PRE (S) : 5.39 S FET_POST (S) : 6.80 S FRC BOX (L) : 3.90 L RV BOX (L) : 3.61 L RV_PLETH_PRED (L) : 2.29 L TLC BOX (L) : 5.08 L TLC_PLETH_PRED (L) : 5.09 L RV/TLC BOX (%) : 71 % RV_TLC_PLETH_PRED (%) : 46 % VA (L) : 3.59 L VA_PRD (L) : 4.56 L DLCO/VA (ML/MIN/MMHG/L) : 0.02 ml/min/mmHg/L DLCO_VA_PRED (L) : 0.04 ml/min/mmHg/L DLCOCOR (ML/MIN/MMHG) : 8.09 ml/min/mmHg DLCOCOR_PRED (ML/MIN/MMHG) : 17.09 ml/min/mmHg DLCO/VACOR (ML/MIN/MMHG/L) : 0.02 ml/min/mmHg/L Normal [facility] Basic metabolic 2000 panelon 05-21-2025 Anion gap [Moles/Vol] 11 mmol/L Normal 8-15 [facility] Comment on above: Order Comment: Speci men Type: BLOOD SPECIMEN Ordering Facility: [facility] Address: [address] [place] [address] Performed By: #### 2 4321-2 #### [facility] CLIA [id number] [address] [place] [address] [place] Calcium [Mass/Vol] 9.6 mg/dL Normal 8.5-10.2 [facility] Comment on above: Order Comment: Speci men Type: BLOOD SPECIMEN Ordering Facility: [facility] Address: [address] [place] [address] Performed By: #### 2 4321-2 #### [facility] CLIA [id number] [address] [place] [address] [place] Chloride [Moles/Vol] 105 mmol/L Normal 98-107 [facility] Comment on above: Order Comment: Speci men Type: BLOOD SPECIMEN Ordering Facility: [facility] Address: [address] [place] [address] Performed By: #### 2 4321-2 #### [facility] CLIA [id number] [address] [place] [address] [place] CO2 [Moles/Vol] 24 mmol/L Normal 22-30 [facility] Comment on above: Order Comment: Speci men Type: BLOOD SPECIMEN Ordering Facility: [facility] Address: [address] [place] [address] Performed By: #### 2 4321-2 #### [facility] CLIA [id number] [address] [place] [facility] Creatinine [Mass/Vol] 1.28 mg/dL High 0.58-0.96 [facility] Comment on above: Order Comment: Ledy pablo Type: BLOOD SPECIMEN Ordering Facility: [facility] Address: [address] [place] [address] Performed By: #### 2 4321-2 #### [facility] CLIA [id number] [address] eGFRcr SerPlBld CKD-EPI 2020 40 mL/min/1.73m??? Low >=60 [facility] Comment on above: Order Comment: Ledy pablo Type: BLOOD SPECIMEN Ordering Facility: [facility] Address: [address] [place] [address] Result Comment: Marya mated Glomerular Filtration Rate [...] GFR. Performed By: #### 2 4321-2 #### [facility] CLIA [id number] [address] Glucose [Mass/Vol] 92 mg/dL Normal 74-99 [facility] Comment on above: Order Comment: Ledy pablo Type: BLOOD SPECIMEN Ordering Facility: [facility] Address: [address] [place] [address] Result Comment: The [place] Diabetes Association (ADA) provides guidance for cutoff [...] Standards of Medical Care in Diabetes 2016, [place] Diabetes Association. Diabetes Care. 2016.39(Suppl 1). Performed By: #### 2 4321-2 #### [facility] CLIA [id number] [address] STATES OF [facility] Potassium [Moles/Vol] 5.2 mmol/L High 3.7-5.1 [facility] Comment on above: Order Comment: Ledy pablo Type: BLOOD SPECIMEN Ordering Facility: [facility] Address: [address] [place] [address] Performed By: #### 2 4321-2 #### [facility] CLIA [id number] [address] STATES OF [facility] Sodium [Moles/Vol] 140 mmol/L Normal 136-144 [facility] Comment on above: Order Comment: Ledy pablo Type: BLOOD SPECIMEN Ordering Facility: [facility] Address: [address] [place] [address] Performed By: #### 2 4321-2 #### [facility] CLIA [id number] [address] [place] [facility] Urea nitrogen [Mass/Vol] 36 mg/dL High 7-21 [facility] Comment on above: Order Comment: Ledy pablo Type: BLOOD SPECIMEN Ordering Facility: [facility] Address: [address] [place] [address] Performed By: #### 2 4321-2 #### [facility] CLIA [id number] [address] [place] CBC W Auto Differential pane l (Bld)on 05-21-2025 Basophils (Bld) [#/Vol] 0.03 10*3/uL Normal <0.11 [facility] Comment on above: Order Comment: Ledy pablo Type: BLOOD SPECIMEN Ordering Facility: [facility] Address: [address] [place] [address] Performed By: #### 5 7021-8 #### [facility] CLIA [id number] [address] [place] Basophils/100 WBC (Bld) 0.7 % Normal [facility] Comment on above: Order Comment: Speci men Type: BLOOD SPECIMEN Ordering Facility: [facility] Address: [address] [place] [address] Performed By: #### 5 7021-8 #### [facility] CLIA [id number] [address] [place] [address] [place] Differential cell count method Nom (Bld) Auto Normal [facility] Comment on above: Order Comment: Speci men Type: BLOOD SPECIMEN Ordering Facility: [facility] Address: [address] [place] [address] Performed By: #### 5 7021-8 #### [facility] CLIA [id number] [address] [place] Eosinophils (Bld) [#/Vol] 0.11 10*3/uL Normal <0.46 [facility] Comment on above: Order Comment: Speci men Type: BLOOD SPECIMEN Ordering Facility: [facility] Address: [address] [place] [address] Performed By: #### 5 7021-8 #### [facility] CLIA [id number] [address] Eosinophils/100 WBC (Bld) 2.5 % Normal [facility] Comment on above: Order Comment: Speci men Type: BLOOD SPECIMEN Ordering Facility: [facility] Address: [address] [place] [address] Performed By: #### 5 7021-8 #### [facility] CLIA [id number] [address] [place] Erythrocyte distribution width (RBC) [Ratio] 13.0 % Normal 11.5-15.0 [facility] Comment on above: Order Comment: Speci men Type: BLOOD SPECIMEN Ordering Facility: [facility] Address: [address] [place] [address] Performed By: #### 5 7021-8 #### [facility] CLIA [id number] [address] [place] [address] [place] Hematocrit (Bld) [Volume fraction] 35.0 % Low 36.0-46.0 [facility] Comment on above: Order Comment: Speci men Type: BLOOD SPECIMEN Ordering Facility: [facility] Address: [facility] [place] [address] Performed By: #### 5 7021-8 #### [facility] CLIA [id number] [address] [place] [address] [place] Hemoglobin (Bld) [Mass/Vol] 11.3 g/dL Low 11.5-15.5 [facility] Comment on above: Order Comment: Speci men Type: BLOOD SPECIMEN Ordering Facility: [facility] Address: [address] [place] [address] Performed By: #### 5 7021-8 #### [facility] CLIA [id number] [address] [place] Immature granulocytes (Bld) [#/Vol] 10*3/uL Normal <0.10 [facility] Comment on above: Order Comment: Speci men Type: BLOOD SPECIMEN Ordering Facility: [facility] Address: [address] [place] [address] Performed By: #### 5 7021-8 #### [facility] CLIA [id number] [address] Immature granulocytes/100 WBC (Bld) 0.2 % Normal [facility] Comment on above: Order Comment: Speci men Type: BLOOD SPECIMEN Ordering Facility: [facility] Address: [address] [place] [address] Performed By: #### 5 7021-8 #### [facility] CLIA [id number] [address] [place] [address] [place] Lymphocytes (Bld) [#/Vol] 1.80 10*3/uL Normal 1.00-4.00 [facility] Comment on above: Order Comment: Speci men Type: BLOOD SPECIMEN Ordering Facility: [facility] Address: [address] [place] [address] Performed By: #### 5 7021-8 #### [facility] CLIA [id number] [address] [place] Lymphocytes/100 WBC (Bld) 40.9 % Normal [facility] Comment on above: Order Comment: Speci men Type: BLOOD SPECIMEN Ordering Facility: [facility] Address: [address] [place] [address] Performed By: #### 5 7021-8 #### [facility] CLIA [id number] [address] OF [facility] MCH (RBC) [Entitic mass] 31.0 pg Normal 26.0-34.0 [facility] Comment on above: Order Comment: Speci men Type: BLOOD SPECIMEN Ordering Facility: [facility] Address: [address] [place] [address] Performed By: #### 5 7021-8 #### [facility] CLIA [id number] [address] MCHC (RBC) [Mass/Vol] 32.3 g/dL Normal 30.5-36.0 [facility] Comment on above: Order Comment: Speci men Type: BLOOD SPECIMEN Ordering Facility: [facility] Address: [address] [place] [address] Performed By: #### 5 7021-8 #### [facility] CLIA [id number] [address] MCV (RBC) [Entitic vol] 95.9 fL Normal 80.0-100.0 [facility] Comment on above: Order Comment: Speci men Type: BLOOD SPECIMEN Ordering Facility: [facility] Address: [address] [place] [address] Performed By: #### 5 7021-8 #### [facility] CLIA [id number] [address] STATES OF [facility] Monocytes (Bld) [#/Vol] 0.58 10*3/uL Normal <0.87 [facility] Comment on above: Order Comment: Speci men Type: BLOOD SPECIMEN Ordering Facility: [facility] Address: [address] [place] [address] Performed By: #### 5 7021-8 #### [facility] CLIA [id number] [address] Monocytes/100 WBC (Bld) 13.2 % Normal [facility] Comment on above: Order Comment: Speci men Type: BLOOD SPECIMEN Ordering Facility: [facility] Address: [facility] [place] [address] Performed By: #### 5 7021-8 #### [facility] CLIA [id number] [address] [place] [address] [place] Neutrophils (Bld) [#/Vol] 1.87 10*3/uL Normal 1.45-7.50 [facility] Comment on above: Order Comment: Speci men Type: BLOOD SPECIMEN Ordering Facility: [facility] Address: [address] [place] [address] Performed By: #### 5 7021-8 #### [facility] CLIA [id number] [address] [place] [facility] Neutrophils/100 WBC (Bld) 42.5 % Normal [facility] Comment on above: Order Comment: Speci men Type: BLOOD SPECIMEN Ordering Facility: [facility] Address: [address] [place] [address] Performed By: #### 5 7021-8 #### [facility] CLIA [id number] [address] [place] [address] [place] Nucleated RBC (Bld) [#/Vol] 10*3/uL Normal <0.01 [facility] Comment on above: Order Comment: Speci men Type: BLOOD SPECIMEN Ordering Facility: [facility] Address: [address] [place] [address] Performed By: #### 5 7021-8 #### [facility] CLIA [id number] [address] [place] [address] [place] Nucleated RBC/100 WBC (Bld) [Ratio] 0.0 /100 WBC Normal [facility] Comment on above: Order Comment: Speci men Type: BLOOD SPECIMEN Ordering Facility: [facility] Address: [address] [place] [address] Performed By: #### 5 7021-8 #### [facility] CLIA [id number] [address] [place] [address] [place] Platelet mean volume (Bld) [Entitic vol] 9.1 fL Normal 9.0-12.7 [facility] Comment on above: Order Comment: Speci men Type: BLOOD SPECIMEN Ordering Facility: [facility] Address: [facility] [place] [address] Performed By: #### 5 7021-8 #### [facility] CLIA [id number] [address] [place] Platelets (Bld) [#/Vol] 206 10*3/uL Normal 150-400 [facility] Comment on above: Order Comment: Speci men Type: BLOOD SPECIMEN Ordering Facility: [facility] Address: [address] [place] [address] Performed By: #### 5 7021-8 #### [facility] CLIA [id number] [address] [place] [address] [place] RBC (Bld) [#/Vol] 3.65 10*6/uL Low 3.90-5.20 [facility] Comment on above: Order Comment: Speci men Type: BLOOD SPECIMEN Ordering Facility: [facility] Address: [address] [place] [address] Performed By: #### 5 7021-8 #### [facility] CLIA [id number] [address] [place] WBC (Bld) [#/Vol] 4.40 10*3/uL Normal 3.70-11.00 [facility] Comment on above: Order Comment: Speci men Type: BLOOD SPECIMEN Ordering Facility: [facility] Address: [address] [place] [address] Performed By: #### 5 7021-8 #### [facility] CLIA [id number] [address] [place] D dimer FEU PPP-mCncon 05-21 Fibrin D-dimer FEU (PPP) [Mass/Vol] 770 ng/mL FEU High <500 [facility] Comment on above: Order Comment: Speci men Type: BLOOD SPECIMENOrdering Facility: [facility] Address: [address] [place] [address] Performed By: #### 4 8065-7 ####[facility] [id number] [place] [address] [place] Fibrin D-dimer FEU (PPP) [Ma ss/Vol]on 05-21-2025 D DIMER AGE-RELATED CUTOFF 880 ng/mL FEU Normal [facility] Comment on above: Order Comment: Speci men Type: BLOOD SPECIMENOrdering Facility: [facility] Address: [facility] [place] [address] Performed By: #### 4 8065-7 ####[facility] [id number] [place] [address] [place] US DVT LOWER LTon 05-21-2025 US DVT LOWER LT * * *Final Report* * * DATE OF EXAM: May 21 2025 11:08AM MDU 1006 - US DVT LOWER LT / PROCEDURE REASON: I82.462-Acute deep vein thrombosis (DVT) of calf muscle vein of left lower extre * * * * Physician Interpretation * * * * EXAMINATION: LEFT LOWER EXTREMITY DEEP VENOUS ULTRASOUND WITH DOPPLER IMAGING CLINICAL HISTORY: Evaluate for DVT TECHNIQUE: Grayscale with compression maneuvers, color Doppler and spectral Doppler imaging of the left proximal deep veins was performed. Grayscale with compression maneuvers of the peroneal and posterior tibial veins was performed. The left great and small saphenous veins were evaluated at their insertion to the deep system. The contralateral common femoral vein was imaged for comparison. Images were obtained and stored in a permanent archive. MQ: USLEL_1 COMPARISON: None RESULT: LEFT LOWER EXTREMITY PROXIMAL DEEP VEINS Distal External Iliac, Common Femoral and proximal Profunda Veins: Compression: Normal Doppler: Normal, spontaneous respirophasic flow. Normal response to augmentation. Femoral vein: Compression: Normal Doppler: Normal, spontaneous flow. Normal response to augmentation. Popliteal vein: Compression: Normal Doppler: Normal, spontaneous flow. Normal response to augmentation. CALF DEEP VEINS Peroneal veins: Normal compression. Posterior tibial veins: Normal compression. Gastrocnemius and Soleal veins: Not imaged. SUPERFICIAL VEINS Great saphenous: Patent and compressible at insertion into common femoral vein; not otherwise assessed. Small Saphenous: Patent and compressible in the proximal calf, not otherwise assessed. RIGHT LOWER EXTREMITY (FOR COMPARISON) Common Femoral Vein: Compression: Normal Doppler: Normal, spontaneous respirophasic flow. Normal response to augmentation. IMPRESSION: Negative study for proximal DVT in the left lower extremity. Negative study for calf DVT in the left lower extremity. Negative study for superficial thrombophlebitis in the imaged segments of the left lower extremity. Senior Advocate: [facility] Transcribe Date/Time: May 21 2025 12:36P Dictated by : JUSTYN CISSE MD This examination was interpreted and the report reviewed and electronically signed by: JUSTYN CISSE MD on May 21 2025 12:51PM EST [id number] [facility] US Lower extremity vein - le fton 05-21-2025 IMPRESSION: Negative study for proximal DVT in the left lower extremity. Negative study for calf DVT in the left lower extremity. Negative study for superficial thrombophlebitis in the imaged segments of the left lower extremity. Senior Advocate: [facility] Transcribe Date/Time: May 21 2025 12:36P Dictated by : JUSTYN CISSE MD This examination was interpreted and the report reviewed and electronically signed by: JUSTYN CISSE MD on May 21 2025 12:51PM [facility] * * *Final Report* * * DATE OF EXAM: May 21 2025 11:08AM [facility]EVEN 1006 - US DVT LOWER LT / PROCEDURE REASON: I82.462-Acute deep vein thrombosis (DVT) of calf muscle vein of left lower extre * * * * Physician Interpretation * * * * EXAMINATION: LEFT LOWER EXTREMITY DEEP VENOUS ULTRASOUND WITH DOPPLER IMAGING CLINICAL HISTORY: Evaluate for DVT TECHNIQUE: Grayscale with compression maneuvers, color Doppler and spectral Doppler imaging of the left proximal deep veins was performed. Grayscale with compression maneuvers of the peroneal and posterior tibial veins was performed. The left great and small saphenous veins were evaluated at their insertion to the deep system. The contralateral common femoral vein was imaged for comparison. Images were obtained and stored in a permanent archive. MQ: USLEL_1 COMPARISON: None RESULT: LEFT LOWER EXTREMITY PROXIMAL DEEP VEINS Distal External Iliac, Common Femoral and proximal Profunda Veins: Compression: Normal Doppler: Normal, spontaneous respirophasic flow. Normal response to augmentation. Femoral vein: Compression: Normal Doppler: Normal, spontaneous flow. Normal response to augmentation. Popliteal vein: Compression: Normal Doppler: Normal, spontaneous flow. Normal response to augmentation. CALF DEEP VEINS Peroneal veins: Normal compression. Posterior tibial veins: Normal compression. Gastrocnemius and Soleal veins: Not imaged. SUPERFICIAL VEINS Great saphenous: Patent and compressible at insertion into common femoral vein; not otherwise assessed. Small Saphenous: Patent and compressible in the proximal calf, not otherwise assessed. RIGHT LOWER EXTREMITY (FOR COMPARISON) Common Femoral Vein: Compression: Normal Doppler: Normal, spontaneous respirophasic flow. Normal response to augmentation. [facility] Provider, Stella Kelly Brad - 05/21/2025 * * *Final Report* * * DATE OF EXAM: May 21 2025 11:08AM MDU 1006 - US DVT LOWER LT / PROCEDURE REASON: I82.462-Acute deep vein thrombosis (DVT) of calf muscle vein of left lower extre * * * * Physician Interpretation * * * * EXAMINATION: LEFT LOWER EXTREMITY DEEP VENOUS ULTRASOUND WITH DOPPLER IMAGING CLINICAL HISTORY: Evaluate for DVT TECHNIQUE: Grayscale with compression maneuvers, color Doppler and spectral Doppler imaging of the left proximal deep veins was performed. Grayscale with compression maneuvers of the peroneal and posterior tibial veins was performed. The left great and small saphenous veins were evaluated at their insertion to the deep system. The contralateral common femoral vein was imaged for comparison. Images were obtained and stored in a permanent archive. MQ: USLEL_1 COMPARISON: None RESULT: LEFT LOWER EXTREMITY PROXIMAL DEEP VEINS Distal External Iliac, Common Femoral and proximal Profunda Veins: Compression: Normal Doppler: Normal, spontaneous respirophasic flow. Normal response to augmentation. Femoral vein: Compression: Normal Doppler: Normal, spontaneous flow. Normal response to augmentation. Popliteal vein: Compression: Normal Doppler: Normal, spontaneous flow. Normal response to augmentation. CALF DEEP VEINS Peroneal veins: Normal compression. Posterior tibial veins: Normal compression. Gastrocnemius and Soleal veins: Not imaged. SUPERFICIAL VEINS Great saphenous: Patent and compressible at insertion into common femoral vein; not otherwise assessed. Small Saphenous: Patent and compressible in the proximal calf, not otherwise assessed. RIGHT LOWER EXTREMITY (FOR COMPARISON) Common Femoral Vein: Compression: Normal Doppler: Normal, spontaneous respirophasic flow. Normal response to augmentation. IMPRESSION IMPRESSION: Negative study for proximal DVT in the left lower extremity. Negative study for calf DVT in the left lower extremity. Negative study for superficial thrombophlebitis in the imaged segments of the left lower extremity. Senior Advocate: PSCB Transcribe Date/Time: May 21 2025 12:36P Dictated by : JUSTYN CISSE MD This examination was interpreted and the report reviewed and electronically signed by: JUSTYN CISSE MD on May 21 2025 12:51PM EST [facility] Radiology Study observation (narrative) [facility] US Lower extremity vein - le ftOrdered By: Ccf Provider on 05-21-2025 [facility] CNPNon 05-18-2025 CNPN Telephone (PRANBR) ZENAIDA EVANS ([id number]) 1935 F Date Time Provider Department 05/18/25 SUSANNAH CAPELLAN During your visit today, we recorded the following information about you: Allergies As of Date: 05/18/2025 Noted Allergy Reaction SCOPOLAMINE 10/30/2011 1 - [...] - GI Upset Comments: constipation Date Reviewed: 05/18/2025 Reviewed by: Rosalie Appiah, RT(R) - Fully Assessed Reason for Visit: Pulse Ox report [Other] Cmt: Test Smarter Prescriptions as of 06/11/2025 - diclofenac (VOLTAREN) 1 % topical gel Apply 2 g to affected area two times a day. - glycopyrrolate-formoterol (BEVESPI AEROSPHERE) 9-4.8 mcg Inhale 2 puffs as instructed two times a day. - dapagliflozin propanediol (FARXIGA) 5 mg tablet Take 1 tablet by mouth daily with breakfast. - ELIQUIS 2.5 mg tab(s) Take 2.5 mg by mouth two times a day. - ondansetron (ZOFRAN) 4 mg tablet Take by mouth every 8 hours as needed for nausea/vomiting. - labetalol (TRANDATE) 200 mg tablet Take [...] capsule by mouth at bedtime as needed. Meds Comments as of 10/05/2022: Problem List As Of Date 05/18/2025 Noted Resolved Hypertensive heart and chronic kidney [...] Greater trochanteric bursitis of left hip [M70.*08/07/2014 09/19/2020 Hip arthritis [M16.10] 08/07/2014 Left hip impingement syndrome [M25.852] 08/07/2014 09/19/2020 Tendinopathy of left gl (more content not included)... Normal [facility] MRI KIDNEY WO/W IVCONon 08-0 MRI KIDNEY WO/W IVCON * * *Final Report* * * DATE OF EXAM: May 18 2025 1:10PM WR 0721 - MRI KIDNEY WO/W IVCON / PROCEDURE REASON: Other specified disorders of kidney and ureter * * * * Physician Interpretation * * * * EXAMINATION: MRI ABDOMEN WITHOUT AND WITH IV CONTRAST CLINICAL HISTORY: Other specified disorders of kidney and ureter. Follow-up complex left upper pole cyst seen on prior ultrasound. TECHNIQUE: A renal MRI was performed on a 1.5 T MR system utilizing the torso phased-array coil. Pulse sequences included: axial precontrast T1 weighted in- and [id number]-bf-nlfic, axial and coronal HASTE, axial DWI with creation of ADC map; axial and coronal T1-VIBE before and after the administration of intravenous gadolinium chelate. Multiple post processing techniques were performed. MQ: MRKid_1 Contrast: IV administration of 6 ml of Elucirem COMPARISON: Renal ultrasound, 05/09/2025. MRCP, 10/15/2023. RESULT: Kidneys, adrenals and ureters: Right kidney: -5.9 cm benign (Bosniak 2) lower pole cyst with a thin septation inferiorly (8:42). -No suspicious cyst. No solid mass. Right renal vasculature - Arterial: single. No early branch (< 1cm). - Venous: single. Right ureter: Single ureter. No hydronephrosis. Right adrenal: Normal, no nodules or thickening Left kidney: -1.5 cm benign (Bosniak 2) thinly septated mid/upper pole parapelvic cyst (3:15), corresponding to the indeterminate sonographic lesion. -No suspicious cyst. No solid mass. Left renal vasculature - Arterial: single. No early branch (< 1cm). - Venous: conventional, anterior to the aorta. Left ureter: Single ureter. No hydronephrosis. Left adrenal: Normal, no nodules or thickening Retroperitoneal lymphadenopathy and IV involvement: Patent IVC. No retroperitoneal lymphadenopathy. Abdomen: Liver: Normal morphology. No hepatic steatosis. Few scattered benign cysts, but no suspicious liver lesion. Biliary: Normal gallbladder. Stable mildly prominent common duct up to 1.1 cm (3:28), probably physiologic, with smooth, tapered narrowing to the level of the distal common bile duct and with no obstructing stone or mass. Spleen: No mass. No splenomegaly. 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 Multiple additional subcentimeter cysts, also likely sidebranch IPMNs, are also stable and without worrisome/high risk features, for example an 8 mm cyst in the body on 3:32. No solid mass or ductal dilation. GI tract: No dilation or wall thickening. Lymph nodes (other): No abdominal or pelvic lymphadenopathy. Mesentery/Peritoneum: No ascites or mass. Retroperitoneum: No mass. Vasculature: The celiac axis and SMA are patent. The portal vein and branches, splenic vein, SMV, and hepatic veins are patent. Normal caliber abdominal aorta. Bones/Soft Tissues: Degenerative changes. No aggressive appearing bone lesions. Lower thorax: Limited assessment of the lung bases is unremarkable. IMPRESSION: Bilateral benign renal cysts, including a benign (Bosniak 2) thinly septated LEFT parapelvic cyst corresponding to the indeterminate sonographic finding. No suspicious renal mass. 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 Senior Advocate: PSCB Transcribe Date/Time: May 27 2025 6:40P Dictated by : DAVID GLOVER MD This examination was interpreted and the report reviewed and electronically signed by: DAVID GLOVER MD on May 27 2025 6:48PM EST [id number] Normal [facility] 05-14-2025 CNPN Telephone (INTMBR) CRISTINAZENAIDA Cleveland ([id number]) 1935 F Date Time Provider Department 05/14/25 SUSANNAH CAPELLAN INTMBR During your visit today, we recorded the following information about you: Susannah Capellan MD 05/14/2025 11:22 AM Signed Please assist patient in scheduling mri of the kidney and then follow up with Urology (Dr. Silva) after the MRI. Sally Dutta 05/14/2025 11:55 AM Signed Pt's MRI is scheduled for 05/18 and Urology is scheduled 06/07. Allergies As of Date: 05/14/2025 Noted Allergy Reaction SCOPOLAMINE 10/30/2011 1 - [...] - GI Upset Comments: constipation Date Reviewed: 05/14/2025 Reviewed by: Susannah Capellan MD - Fully Assessed Prescriptions as of 05/14/2025 - ELIQUIS 2.5 mg tab(s) Take 2.5 mg by mouth two times a day. - ondansetron (ZOFRAN) 4 mg tablet Take by mouth every 8 hours as needed for nausea/vomiting. - dapagliflozin propanediol (FARXIGA) 5 mg tablet [...] capsule by mouth at bedtime as needed. Meds Comments as of 10/05/2022: Problem List As Of Date 05/14/2025 Noted Resolved Hypertensive heart and chronic kidney [...] Greater trochanteric bursitis of left hip [M70.*08/07/2014 09/19/2020 Hip arthritis [M16.10] 08/07/2014 Left hip impingement syndrome [M25.852] 08/07/2014 09/19/2020 Tendinopathy of (more content not included)... Normal [facility] Basic metabolic 2000 panelon 05-09-2025 Anion gap [Moles/Vol] 14 mmol/L Normal 8-15 [facility] Comment on above: Order Comment: Speci men Type: BLOOD SPECIMENOrdering Facility: [facility] Address: [address] [place] [address] Performed By: #### 2 4321-2 ####[facility] FAM MILLTOWNCLIA [id number] [place] [address] [place] Calcium [Mass/Vol] 10.3 mg/dL High 8.5-10.2 [facility] Comment on above: Order Comment: Speci men Type: BLOOD SPECIMENOrdering Facility: [facility] Address: [address] [place] [address] Performed By: #### 2 4321-2 ####[facility] FAM MILLTOWNCLIA [id number] [place] [address] [place] Chloride [Moles/Vol] 100 mmol/L Normal 98-107 [facility] Comment on above: Order Comment: Speci men Type: BLOOD SPECIMENOrdering Facility: [facility] Address: [address] [place] [address] Performed By: #### 2 4321-2 ####[facility] FAM MILLTOWNCLIA [id number] [place] [address] [place] CO2 [Moles/Vol] 25 mmol/L Normal 22-30 [facility] Comment on above: Order Comment: Speci men Type: BLOOD SPECIMENOrdering Facility: [facility] Address: [address] [place] [address] Performed By: #### 2 4321-2 ####[facility] [id number] [place] [address] [place] Creatinine [Mass/Vol] 1.46 mg/dL High 0.58-0.96 [facility] Comment on above: Order Comment: Ledy pablo Type: BLOOD SPECIMENOrdering Facility: [facility] Address: [address] [place] [address] Performed By: #### 2 4321-2 ####[facility] [id number] [place] [address] [place] eGFRcr SerPlBld CKD-EPI 2020 34 mL/min/1.73m??? Low >=60 [facility] Comment on above: Order Comment: Ledy pablo Type: BLOOD SPECIMENOrdering Facility: [facility] Address: [address] [place] [address] Result Comment: Marya mated Glomerular Filtration Rate [...] actual GFR. Performed By: #### 2 4321-2 ####[facility] [id number] [place] [address] [place] Glucose [Mass/Vol] 109 mg/dL High 74-99 [facility] Comment on above: Order Comment: Ledy pablo Type: BLOOD SPECIMENOrdering Facility: [facility] Address: [address] [place] [id number] Result Comment: The [place] Diabetes Association (ADA) provides guidance for cutoff [...] Standards of Medical Care in Diabetes 2016, [place] Diabetes Association. Diabetes Care. 2016.39(Suppl 1). Performed By: #### 2 4321-2 ####[facility] [id number] [place] [address] [place] Potassium [Moles/Vol] 4.2 mmol/L Normal 3.7-5.1 [facility] Comment on above: Order Comment: Speci men Type: BLOOD SPECIMENOrdering Facility: [facility] Address: [address] [place] [address] Performed By: #### 2 4321-2 ####[facility] [id number] [place] [address] [place] Sodium [Moles/Vol] 139 mmol/L Normal 136-144 [facility] Comment on above: Order Comment: Speci men Type: BLOOD SPECIMENOrdering Facility: [facility] Address: [address] [place] [address] Performed By: #### 2 4321-2 ####[facility] [id number] [place] [address] [place] Urea nitrogen [Mass/Vol] 41 mg/dL High 7-21 [facility] Comment on above: Order Comment: Speci men Type: BLOOD SPECIMENOrdering Facility: [facility] Address: [address] [place] [address] Performed By: #### 2 4321-2 ####[facility] [id number] [place] [address] [place] CBC W Auto Differential pane l (Bld)on 05-09-2025 Basophils (Bld) [#/Vol] 10*3/uL Normal <0.11 [facility] Comment on above: Order Comment: Speci men Type: BLOOD SPECIMENOrdering Facility: [facility] Address: [address] [place] [address] Performed By: #### 5 7021-8 ####[facility] YESSICAWNCLIA [id number] [place] [address] [place] Basophils/100 WBC (Bld) 0.4 % Normal [facility] Comment on above: Order Comment: Speci men Type: BLOOD SPECIMENOrdering Facility: [facility] Address: [address] [place] [address] Performed By: #### 5 7021-8 ####[facility] WLILLACONIANCLIA [id number] [place] [address] [place] Differential cell count method Nom (Bld) Auto Normal [facility] Comment on above: Order Comment: Speci men Type: BLOOD SPECIMENOrdering Facility: [facility] Address: [address] [place] [address] Performed By: #### 5 7021-8 ####[facility] WILLWNCLIA [id number] [place] [address] [place] Eosinophils (Bld) [#/Vol] 0.12 10*3/uL Normal <0.46 [facility] Comment on above: Order Comment: Speci men Type: BLOOD SPECIMENOrdering Facility: [facility] Address: [address] [place] [address] Performed By: #### 5 7021-8 ####[facility] MILLTOWNCLIA [id number] [place] [address] [place] Eosinophils/100 WBC (Bld) 2.6 % Normal [facility] Comment on above: Order Comment: Speci men Type: BLOOD SPECIMENOrdering Facility: [facility] Address: [address] [place] [address] Performed By: #### 5 7021-8 ####[facility] MILLWNCLIA [id number] [place] [address] [place] Erythrocyte distribution width (RBC) [Ratio] 12.6 % Normal 11.5-15.0 [facility] Comment on above: Order Comment: Speci men Type: BLOOD SPECIMENOrdering Facility: [facility] Address: [address] [place] [address] Performed By: #### 5 7021-8 ####[facility] [id number] [place] [address] [place] Hematocrit (Bld) [Volume fraction] 35.5 % Low 36.0-46.0 [facility] Comment on above: Order Comment: Speci men Type: BLOOD SPECIMENOrdering Facility: [facility] Address: [address] [place] [address] Performed By: #### 5 7021-8 ####[facility] [id number] [place] [address] [place] Hemoglobin (Bld) [Mass/Vol] 11.9 g/dL Normal 11.5-15.5 [facility] Comment on above: Order Comment: Speci men Type: BLOOD SPECIMENOrdering Facility: [facility] Address: [address] [place] [address] Performed By: #### 5 7021-8 ####[facility] [id number] [place] [address] [place] Immature granulocytes (Bld) [#/Vol] 10*3/uL Normal <0.10 [facility] Comment on above: Order Comment: Speci men Type: BLOOD SPECIMENOrdering Facility: [facility] Address: [address] [place] [address] Performed By: #### 5 7021-8 ####[facility]CL[facility] [id number] [place] [address] [place] Immature granulocytes/100 WBC (Bld) 0.2 % Normal [facility] Comment on above: Order Comment: Speci men Type: BLOOD SPECIMENOrdering Facility: [facility] Address: [address] [place] [address] Performed By: #### 5 7021-8 ####[facility] [id number] [place] [address] [place] Lymphocytes (Bld) [#/Vol] 1.67 10*3/uL Normal 1.00-4.00 [facility] Comment on above: Order Comment: Speci men Type: BLOOD SPECIMENOrdering Facility: [facility] Address: [address] [place] [address] Performed By: #### 5 7021-8 ####[facility] [id number] [place] [address] [place] Lymphocytes/100 WBC (Bld) 36.7 % Normal [facility] Comment on above: Order Comment: Speci men Type: BLOOD SPECIMENOrdering Facility: [facility] Address: [address] [place] [address] Performed By: #### 5 7021-8 ####[facility] [id number] [place] [address] [place] MCH (RBC) [Entitic mass] 31.2 pg Normal 26.0-34.0 [facility] Comment on above: Order Comment: Speci men Type: BLOOD SPECIMENOrdering Facility: [facility] Address: [address] [place] [address] Performed By: #### 5 7021-8 ####[facility] [id number] [place] [address] [place] MCHC (RBC) [Mass/Vol] 33.5 g/dL Normal 30.5-36.0 [facility] Comment on above: Order Comment: Speci men Type: BLOOD SPECIMENOrdering Facility: [facility] Address: [address] [place] [address] Performed By: #### 5 7021-8 ####[facility] SWETHALIA [id number] [place] [address] [place] [facility] MCV (RBC) [Entitic vol] 92.9 fL Normal 80.0-100.0 [facility] Comment on above: Order Comment: Speci men Type: BLOOD SPECIMENOrdering Facility: [facility] Address: [address] [place] [address] Performed By: #### 5 7021-8 ####[facility]ENTERNCTONYA [id number] [place] [address] [place] Monocytes (Bld) [#/Vol] 0.50 10*3/uL Normal <0.87 [facility] Comment on above: Order Comment: Speci men Type: BLOOD SPECIMENOrdering Facility: [facility] Address: [address] [place] [address] Performed By: #### 5 7021-8 ####[facility]ENTERBRYANNAA [id number] [place] [address] [place] Monocytes/100 WBC (Bld) 11.0 % Normal [facility] Comment on above: Order Comment: Speci men Type: BLOOD SPECIMENOrdering Facility: [facility] Address: [address] [place] [address] Performed By: #### 5 7021-8 ####[facility]ENTERGEORGELIA [id number] [place] [address] [place] Neutrophils (Bld) [#/Vol] 2.23 10*3/uL Normal 1.45-7.50 [facility] Comment on above: Order Comment: Speci men Type: BLOOD SPECIMENOrdering Facility: [facility] Address: [address] [place] [address] Performed By: #### 5 7021-8 ####[facility]ABIESA [id number] [place] [address] [place] Neutrophils/100 WBC (Bld) 49.1 % Normal [facility] Comment on above: Order Comment: Speci men Type: BLOOD SPECIMENOrdering Facility: [facility] Address: [address] [place] [address] Performed By: #### 5 7021-8 ####[facility] [id number] [place] [address] [place] Nucleated RBC (Bld) [#/Vol] 10*3/uL Normal <0.01 [facility] Comment on above: Order Comment: Speci men Type: BLOOD SPECIMENOrdering Facility: [facility] Address: [address] [place] [address] Performed By: #### 5 7021-8 ####[facility] [id number] [place] [address] [place] Nucleated RBC/100 WBC (Bld) [Ratio] 0.0 /100 WBC Normal [facility] Comment on above: Order Comment: Speci men Type: BLOOD SPECIMENOrdering Facility: [facility] Address: [address] [place] [address] Performed By: #### 5 7021-8 ####[facility] [id number] [place] [address] [place] Platelet mean volume (Bld) [Entitic vol] 9.3 fL Normal 9.0-12.7 [facility] Comment on above: Order Comment: Speci men Type: BLOOD SPECIMENOrdering Facility: [facility] Address: [address] [place] [address] Performed By: #### 5 7021-8 ####[facility]ENTERNCLI [id number] [place] [address] [place] Platelets (Bld) [#/Vol] 184 10*3/uL Normal 150-400 [facility] Comment on above: Order Comment: Speci men Type: BLOOD SPECIMENOrdering Facility: [facility] Address: [address] [place] [address] Performed By: #### 5 7021-8 ####[facility]ENTERNCA [id number] [place] [address] [place] RBC (Bld) [#/Vol] 3.82 10*6/uL Low 3.90-5.20 [facility] Comment on above: Order Comment: Speci men Type: BLOOD SPECIMENOrdering Facility: [facility] Address: [address] [place] [address] Performed By: #### 5 7021-8 ####[facility]ENTERNCA [id number] [place] [address] [place] WBC (Bld) [#/Vol] 4.55 10*3/uL Normal 3.70-11.00 [facility] Comment on above: Order Comment: Speci men Type: BLOOD SPECIMENOrdering Facility: [facility] Address: [address] [place] [address] Performed By: #### 5 7021-8 ####[facility]IESA [id number] [place] [address] [place] TSH SerPl-aCncon 05-09-2025 TSH Qn 0.623 m[IU]/L Normal 0.270-4.20 0 [facility] Comment on above: Order Comment: Speci men Type: BLOOD SPECIMENOrdering Facility: [facility] Address: [address] [place] [address] Performed By: #### 3 016-3 ####[facility] [id number] [place] [id number] [place] US KIDNEY/BLADDERon 05-09-20 25 US KIDNEY/BLADDER * * *Final Report* * * DATE OF EXAM: May 09 2025 1:47PM [facility] 1055 - US KIDNEY/BLADDER / PROCEDURE REASON: Kidney lesion, caddo, left * * * * Physician Interpretation * * * * EXAMINATION: RENAL ULTRASOUND CLINICAL HISTORY: Left kidney lesion. TECHNIQUE: Sonography of the kidneys and urinary bladder was performed. Images were obtained and stored in a permanent archive. MQ: UR_1 COMPARISON: MRI 10/15/2023 RESULT: Right Kidney: -Renal length: 10.0 cm -Parenchyma: Normal parenchymal echogenicity. Normal parenchymal thickness. -Collecting system: No hydronephrosis. -Calculus: No echogenic, shadowing calculus. -Lesion: 5.8 cm interpolar-lower pole simple cyst. Left Kidney: -Renal length: 10.1 cm -Parenchyma: Normal parenchymal echogenicity. Normal parenchymal thickness. -Collecting system: No hydronephrosis. -Calculus: No echogenic, shadowing calculus. -Lesion: 1.6 cm upper pole cystic lesion with some heterogeneous internal echogenicity. Bladder: Nonvisualized, likely collapsed. IMPRESSION: 1.6 cm left upper pole complex cystic lesion, incompletely characterized by sonographic technique. If clinically warranted, a contrast-enhanced MRI kidney can be obtained for further characterization. Benign right renal cyst. ACTIONABLE RESULT: FOLLOW-UP Acuity: Actionable Findings: Kidneys/Ureters/Bladder Routing Code: GU_1 Recommendation: MRI KIDNEY WO/W IVCON Time Frame: At the discretion of the clinical team. COMMUNICATION: Results will be communicated with the ordering provider via [employer] staff message or phone message by [facility] within 2 business days of report finalization. --END OF FINDING-- Senior Advocate: RUDY Transcribe Date/Time: May 13 2025 11:52A Dictated by : BERTHA GUILLEN MD This examination was interpreted and the report reviewed and electronically signed by: BERTHA GUILLEN MD on May 13 2025 11:56AM EST [id number] ACTIONABLE Invalid Interpretation Code [facility] CNOVon 05-07-2025 CNOV Office Visit (CARD C HF GEOFFREY) ZENAIDA EVANS ([id number]) 1935 F Date Time Provider Department 05/07/25 8:30 AM PAUL BAUTISTA CARD CHF GEOFFREY During your visit today, we recorded the following information about you: Pulse Blood pressure Weight Height 72/minute 138/71 56.8 kg 1.676 m Paul Bautista MD 05/08/2025 12:20 PM Signed [facility] [place] [facility] SECTION OF HEART FAILURE and CARDIAC TRANSPLANT MEDICINE OUTPATIENT VISIT DATE May 07, 2025 OUTPATIENT VISIT TYPE Established Patient PRIMARY CARE PHYSICIAN: Susannah Capellan [address] [place] [address] CHIEF COMPLAINT: shortness of breath, lightheadedness What are your concerns or questions for the visit today: Concern about the 2 hospital stay Was there a cardiac hospitalization/ED visit in the past year: Yes: When and where: 04/27/2025 DVT, HTN; 04/09/2025 Chronic diastolic HF HF Nursing Assessment: Chest Pain: no Skipping or irregular heartbeats: no Shortness of breath at rest: no Shortness of breath with activity: yes Cough: yes Waking up in the middle of the night gasping for air: no Lightheadedness or dizziness: yes, when get up and other times Feeling like you are going to pass out: no Actually passing out: no Poor energy level: yes Unintentional weight gain: no Unintentional weight loss: yes, loss 5 lbs over month or 2 Swelling in your legs,feet, abdomen: no Filling up quickly when you eat: no HISTORY OF PRESENT ILLNESS: 89 yo M with pmh of hypertension, CKD stage 3b, hypothyroidism, and HFpEF who presents for further evaluation of her HFpEF. Ms. Evans presents for evaluation of her HFpEF. She has increased dyspnea on exertion. She presents today to follow up post her most recent hospitalizations. She was hospitalized in 04/09/25 at [facility] for chest pain. Heart cath at the hospital did not show any significant stenosis of the coronary vessels. There was mild disease noted in the left anterior descending artery, nonobstructive disease noted in the circumflex artery, and a dominant right coronary artery with no significant stenosis. She was found to have LE DVT and was started on eliquis. After being discharged, she felt lightheaded and dizzy at home. Her chest pain resolved after discharge. On her PCP follow up appointment, her oxygen saturation was 88% and there was concern for a PE. She was advised to go to the ED. She had another hospitalization in 05/11 at [facility] and she had no PE on the CT chest. She had BRIGHT (Cr was 1.78 with baseline 1.1-1.3) suspected to be secondary to the diuretic. At discharge, she was advised to continue dapagliflozin and stop indapamide. The patient has continued to take indapamide 2.5 mg and dapagliflozin 5 mg. She measures her BP at home and it is about 130/70s. She still complains of lightheadedness occasionally. She uses the pulse ox at home and her saturations have been 92-93%. PAST MEDICAL HISTORY Diagnosis Date Breast cancer (HCC) 09/[address] Wood right ER positive s/p surgery/radiation and AI Collagenous colitis 07/30/2017 On biopsy 2012. Diarrhea hx of colitis Diffuse cystic mastopathy Dyspareunia Essential hypertension H/O complete eye exam 03/13/2011 no retinopathy detected -both eyes - [facility] - return in 1 year - Dr. [...] DX W/COLLJ SPEC WHEN PFRMD 09/08/2013 Colonoscopy LEFT HEART CATH,PERCUTANEOUS 04/10/2025 Mild Disease [facility]. MASTECTOMY, PARTIAL Right 10/30/2011 Right NL PM/SLNs PAST SURGICAL HISTORY OF bilat vein stripping PAST SURGICAL HISTORY OF Left 1990 left breast Atypical hyperplasia PAST SURGICAL HISTORY OF excision skin cancer S FINGER JOINT IMPLANT [id number] Left 11/2020 Candace Marmolejo left thumb joint replacement TOTAL ABDOMINAL HYSTERECT W/WO RMVL TUBE OVARY early 1969' Hysterectomy, CAROL, due to fibroids. SOCIAL HISTORY Social History Tobacco (more content not included)... Normal [facility] CNPNon 05-07-2025 CNPN Telephone ([facility]) ZENAIDA EVANS ([id number]) 1935 F Date Time Provider Department 05/07/25 SUSANNAH CAPELLAN INTLESLIE During your visit today, we recorded the following information about you: Abena Aviles RN 05/07/2025 9:41 AM Signed Can from [facility] calling from cell [phone] office number [phone]. Can states they received a fax for an overnight pulse oximetry study but the fax was dark and difficult to read. Can is wondering if a face sheet and the order can be resent to fax number Tara Orona MA 05/07/2025 10:18 AM Signed Re-faxed order to [facility] at [phone] Helga Ly RN 05/07/2025 10:39 AM Signed [facility] calling back and the fax is still coming back blacked out Can you try faxing at a different fax machine? Call back to [phone] when done Susannah Capellan MD 05/07/2025 3:20 PM Signed Order re-written Tara Orona MA 05/07/2025 3:46 PM Signed Re-faxed order to [facility] at [phone] Susannah Capellan MD 05/14/2025 10:59 AM Signed Please find out if [facility] has the orders and are able to set up nighttime pulse ox. If there is a problem with the order, do they have a standard order sheet they can fax us for me to fill out? Tara Orona MA 05/14/2025 1:12 PM Signed Called [facility] regarding message below and got voicemail. LM requesting [facility] to call office back. Please relay message upon return call. Valente Andersonbaldo Johana 05/14/2025 2:14 PM Addendum Can Diaz patient skin care consultant (phone# [phone] secure line to cell) is calling back and said yes they have the orders and can set up the overnight pulse ox They have attempting several times to reach the patient to set this up and have been unable to reach patient . I did give the phone numbers to reach patient in case they are different [phone] office phone [facility] Susannah Capellan MD 05/24/2025 7:42 AM Signed Received results. See Feedback message. Allergies As of Date: 05/07/2025 Noted Allergy Reaction SCOPOLAMINE 10/30/2011 1 - [...] - GI Upset Comments: constipation Date Reviewed: 05/07/2025 Reviewed by: Scarlet Yanez MA - Fully Assessed Reason for Visit: Orders [[id number]] Prescriptions as of 05/24/2025 - ELIQUIS 2.5 mg tab(s) Take 2.5 mg by mouth two times a day. - ondansetron (ZOFRAN) 4 mg tablet Take by mouth every 8 hours as needed for nausea/vomiting. - dapagliflozin propanediol (FARXIGA) 5 mg tablet [...] capsule by mouth at bedtime as needed. Meds Comments as of 10/05/2022: Problem List As Of Date 05/07/2025 Noted Resolved Hypertensive heart and chronic kidney [...] OSTEOARTHRITIS [M47.812] 08/26/2007 Sleep disturbance, unspecified [G47.9] 08/26/200712/17 (more content not included)... Normal [facility] 04-30-2025 CNPN Telephone ([facility]) ZENAIDA EVANS ([id number]) 1935 F Date Time Provider Department 04/30/25 SUSANNAH CAPELLAN INTGonzalez During your visit today, we recorded the following information about you: Allergies As of Date: 04/30/2025 Noted Allergy Reaction SCOPOLAMINE 10/30/2011 1 - [...] - GI Upset Comments: constipation Date Reviewed: 04/27/2025 Reviewed by: Eve Daniel PA-C - Fully Assessed Reason for Visit: Received Outside Medical Records [[id number]] Cmt: [facility] Prescriptions as of 04/30/2025 - ELIQUIS 5 mg tab(s) Take 5 [...] of 10/05/2022: Problem List As Of Date 04/30/2025 Noted Resolved Hypertensive heart and chronic kidney [...] Greater trochanteric bursitis of left hip [M70.*08/07/2014 09/19/2020 Hip arthritis [M16.10] 08/07/2014 Left hip impingement syndr (more content not included)... Normal [facility] Absolute lymphocyte countOrd ered By: on 04-29-2025 Lymphocytes Auto (Unsp spec) [#/Vol] 1.98 10*3/uL 0.83-4.51 [facility] Absolute neutrophil countOrd ered By: on 04-29-2025 Neutrophils (Bld) [#/Vol] 1.6 10*3/uL Low 2.0-7.7 [facility] Anion gap in Serum or Plasma Ordered By: on 04-29-2025 Anion gap [Moles/Vol] 9 mmol/L 5-15 [facility] Automated lymphocyte count a s percentage of total leukocytesOrdered By: on 04-29-2025 Lymphocytes/100 WBC Auto (Unsp spec) 44.5 % High 19-41 [facility] BUN/creatinine ratioOrdered By: on 04-29-2025 Urea nitrogen/Creatinine [Mass ratio] 24.0 mg/mg High 10-20 [facility] Basophil percentageOrdered B y: on 04-29-2025 Basophils/100 WBC (Bld) 0.7 % 0-1 [facility] Bilirubin, totalOrdered By: on 04-29-2025 Bilirubin [Mass/Vol] 0.53 mg/dL 0.00-1.30 [facility] CBC W/Diff, Automatedon 04-17 Absolute Lymph 1.98 X10 3/uL Normal 0.83-4.51 [facility] Comment on above: Performed By: #### L 100.0100, L500.4050, L501.5200 #### [facility] [address] [place], [address] Absolute Neut 1.6 X10 3/uL Low 2.0-7.7 [facility] Comment on above: Performed By: #### L 100.0100, L500.4050, L501.5200 #### [facility] [address] [place], [address] Basophils/100 WBC (Bld) 0.7 % Normal 0-1 [facility] Comment on above: Performed By: #### L 100.0100, L500.4050, L501.5200 #### [facility] [address] [place], [address] Eosinophils/100 WBC (Bld) 6.1 % High 0-5 [facility] Comment on above: Performed By: #### L 100.0100, L500.4050, L501.5200 #### [facility] [address] [place], [address] Erythrocyte distribution width (RBC) [Ratio] 12.6 % Normal 11.6-14.6 [facility] Comment on above: Performed By: #### L 100.0100, L500.4050, L501.5200 #### [facility] [address] [place], [address] Hematocrit (Bld) [Volume fraction] 31.4 % Low 37-47 [facility] Comment on above: Performed By: #### L 100.0100, L500.4050, L501.5200 #### [facility] [address] [place], [address] Hemoglobin (Bld) [Mass/Vol] 10.7 g/dL Low 12.0-15.0 [facility] Comment on above: Performed By: #### L 100.0100, L500.4050, L501.5200 #### [facility] [address] [place], [address] IG% 0.200 Normal 0.0-0.9 [facility] Comment on above: Result Comment: IG% - Immature Granulocytes (promyelocytes, myelocytes and metamyelocytes) > 1% indicates that a LEFT SHIFT is Present. Performed By: #### L 100.0100, L500.4050, L501.5200 #### [facility] [address] [place], [address] Lymphocytes/100 WBC (Bld) 44.5 % High 19-41 [facility] Comment on above: Performed By: #### L 100.0100, L500.4050, L501.5200 #### [facility] [address] [place], [address] MCH (RBC) [Entitic mass] 31.0 pg Normal 27.0-32.0 [facility] Comment on above: Performed By: #### L 100.0100, L500.4050, L501.5200 #### [facility] [address] [place], [address] MCHC (RBC) [Mass/Vol] 34.1 g/dL Normal 32-36 [facility] Comment on above: Performed By: #### L 100.0100, L500.4050, L501.5200 #### [facility] [address] [place], [address] MCV (RBC) [Entitic vol] 91.0 fL Normal 81-99 [facility] Comment on above: Performed By: #### L 100.0100, L500.4050, L501.5200 #### [facility] [address] [place], [address] Monocytes/100 WBC (Bld) 13.3 % High 0-10 [facility] Comment on above: Performed By: #### L 100.0100, L500.4050, L501.5200 #### [facility] [address] [place], [address] Neutrophils/100 WBC (Bld) 35.2 % Low 47-70 [facility] Comment on above: Performed By: #### L 100.0100, L500.4050, L501.5200 #### [facility] [address] [place], [address] Nucleated RBC (Bld) [#/Vol] 0 10*3/uL Normal 0-5 [facility] Comment on above: Performed By: #### L 100.0100, L500.4050, L501.5200 #### [facility] [address] [place], [address] Platelet mean volume (Bld) [Entitic vol] 9.8 fL Normal 6.2-12.0 [facility] Comment on above: Performed By: #### L 100.0100, L500.4050, L501.5200 #### [facility] [address] [place], [address] Platelets (Bld) [#/Vol] 218 10*3/uL Normal 150-450 [facility] Comment on above: Performed By: #### L 100.0100, L500.4050, L501.5200 #### [facility] [address] [place], [address] RBC (Bld) [#/Vol] 3.45 10*6/uL Low 4.2-5.4 [facility] Comment on above: Performed By: #### L 100.0100, L500.4050, L501.5200 #### [facility] [address] [place], [address] RDW SD 41.7 fl Normal 35.1-43.9 [facility] Comment on above: Performed By: #### L 100.0100, L500.4050, L501.5200 #### [facility] [address] [place], [address] WBC (Bld) [#/Vol] 4.5 10*3/uL Normal 4.4-11.0 [facility] Comment on above: Performed By: #### L 100.0100, L500.4050, L501.5200 #### [facility] [address] [place], [address] Carbon dioxide, total [Moles /volume] in Central venous bloodOrdered By: Ariella Breaux on 04-29-2025 CO2 [Moles/Vol] 26.5 mmol/L 21.0-32.0 [facility] Chloride assayOrdered By: Jalyn Breaux on 04-29-2025 Chloride [Moles/Vol] 104 mmol/L 98-108 [facility] Comprehensive Metabolic Prof ilon 04-29-2025 Albumin [Mass/Vol] 3.7 g/dL Normal 3.4-4.8 [facility] Comment on above: Performed By: #### L 100.0100, L500.4050, L501.5200 #### [facility] [address] [place], [address] Albumin/Globulin [Mass ratio] 1.7 {ratio} Normal 0.9-2.4 [facility] Comment on above: Performed By: #### L 100.0100, L500.4050, L501.5200 #### [facility] [address] [place], [address] ALK PHOS 60 U/L Normal 35-104 [facility] Comment on above: Performed By: #### L 100.0100, L500.4050, L501.5200 #### [facility] [address] [place], [address] ALT [Catalytic activity/Vol] 15 U/L Normal <=34 [facility] Comment on above: Performed By: #### L 100.0100, L500.4050, L501.5200 #### [facility] [address] [place], [address] AST [Catalytic activity/Vol] 22 U/L Normal <=31 [facility] Comment on above: Performed By: #### L 100.0100, L500.4050, L501.5200 #### [facility] [address] [place], [address] Bilirubin [Mass/Vol] 0.53 mg/dL Normal 0.00-1.30 [facility] Comment on above: Performed By: #### L 100.0100, L500.4050, L501.5200 #### [facility] [address] [place], [address] BUN/CRE 24.0 RATIO High 10-20 [facility] Comment on above: Performed By: #### L 100.0100, L500.4050, L501.5200 #### [facility] [address] [place], [address] Calcium [Mass/Vol] 9.6 mg/dL Normal 7.6-11.0 [facility] Comment on above: Performed By: #### L 100.0100, L500.4050, L501.5200 #### [facility] [address] [place], [address] Chloride [Moles/Vol] 104 mmol/L Normal 98-108 [facility] Comment on above: Performed By: #### L 100.0100, L500.4050, L501.5200 #### [facility] [address] [place], [address] CO2 [Moles/Vol] 26.5 mmol/L Normal 21.0-32.0 [facility] Comment on above: Performed By: #### L 100.0100, L500.4050, L501.5200 #### [facility] [address] [place], [address] Creatinine [Mass/Vol] 1.12 mg/dL Normal 0.70-1.20 [facility] Comment on above: Performed By: #### L 100.0100, L500.4050, L501.5200 #### [facility] [address] [place], [address] ECRCL 31.08 ml/min Low 50-250 [facility] Comment on above: Performed By: #### L 100.0100, L500.4050, L501.5200 #### [facility] [address] [place], [address] GAP 9 Normal 5-15 [facility] Comment on above: Performed By: #### L 100.0100, L500.4050, L501.5200 #### [facility] [address] [place], [address] GFR/1.73 sq M.predicted among non-blacks MDRD (S/P/Bld) [Vol rate/Area] 47 mL/min/{1.73_m2} Low >60 [facility] Comment on above: Result Comment: mL/m in/1.73m2 CKD-EPI Creatinine Equation (2020) Performed By: #### L 100.0100, L500.4050, L501.5200 #### [facility] [address] [place], [address] Globulin (S) [Mass/Vol] 2.2 g/dL Normal 2.2-4.2 [facility] Comment on above: Performed By: #### L 100.0100, L500.4050, L501.5200 #### [facility] [address] [place], [address] Glucose [Mass/Vol] 89 mg/dL Normal 70-99 [facility] Comment on above: Performed By: #### L 100.0100, L500.4050, L501.5200 #### [facility] [address] [place], [address] Potassium [Moles/Vol] 3.9 mmol/L Normal 3.3-5.1 [facility] Comment on above: Performed By: #### L 100.0100, L500.4050, L501.5200 #### [facility] [address] [place], [address] Sodium [Moles/Vol] 139 mmol/L Normal 133-145 [facility] Comment on above: Performed By: #### L 100.0100, L500.4050, L501.5200 #### [facility] [address] [place], [address] T PROT 5.9 g/dL Normal 5.9-8.4 [facility] Comment on above: Performed By: #### L 100.0100, L500.4050, L501.5200 #### [facility] [address] [place], [address] Urea nitrogen [Mass/Vol] 27 mg/dL High 4-19 [facility] Comment on above: Performed By: #### L 100.0100, L500.4050, L501.5200 #### [facility] [address] [place], [address] Eosinophil percentageOrdered By: White on 04-29-2025 Eosinophils/100 WBC (Bld) 6.1 % High 0-5 [facility] Erythrocyte distribution wid th ratioOrdered By: White on 04-29-2025 Erythrocyte distribution width (RBC) [Ratio] 12.6 % 11.6-14.6 [facility] Erythrocyte distribution wid th standard deviationOrdered By: White on 04-29-2025 Erythrocyte distribution width (RBC) [Ratio] 41.7 fl 35.1-43.9 [facility] Glomerular filtration rate ( GFR) estimation/1.73 sq m using serum, plasma, or whole bOrdered By: Ariella Breaux on 04-29-2025 GFR/1.73 sq M.predicted among non-blacks MDRD (S/P/Bld) [Vol rate/Area] 47 mL/min/{1.73_m2} Low >60 [facility] Comment on above: mL/min/1.73m2 CKD-EP I Creatinine Equation (2020) Hematocrit Auto (Bld) [Volum e fraction]Ordered By: Ariella Breaux on 04-29-2025 Hematocrit (Bld) [Volume fraction] 31.4 % Low 37-47 [facility] Hemoglobin measurementOrdere d By: Ariella Breaux on 04-29-2025 Hemoglobin (Bld) [Mass/Vol] 10.7 g/dL Low 12.0-15.0 [facility] Immature granulocytes/100 WB C Auto (Bld)Ordered By: Ariella Breaux on 04-29-2025 Immature granulocytes/100 WBC (Bld) 0.200 % 0.0-0.9 [facility] Comment on above: IG% - Immature Granu locytes (promyelocytes, myelocytes and metamyelocytes) > 1% indicates that a LEFT SHIFT is Present. Laboratory - Chemistry and C hemistry - challengeOrdered By: [facility] on 04-29-2025 AST [Catalytic activity/Vol] 22 U/L <32 [facility] MCV (mean corpuscular volume ) determinationOrdered By: Ariella Breaux on 04-29-2025 MCV (RBC) [Entitic vol] 91.0 fL 81-99 [facility] Magnesiumon 04-29-2025 Magnesium [Mass/Vol] 1.6 mg/dL Normal 1.5-2.2 [facility] Comment on above: Performed By: #### L 100.0100, L500.4050, L501.5200 #### [facility] [address] [place], [address] Magnesium measurement (mass/ volume)Ordered By: Ariella Breaux on 04-29-2025 Magnesium (Unsp spec) [Mass/Vol] 1.6 mg/dL 1.5-2.2 [facility] Mean corpuscular hemoglobin (MCH) determinationOrdered By: Ariella Breaux on 04-29-2025 MCH (RBC) [Entitic mass] 31.0 pg 27.0-32.0 [facility] Mean corpuscular hemoglobin concentration (MCHC) determinationOrdered By: Ariella White on 04-29-2025 MCHC (RBC) [Mass/Vol] 34.1 g/dL 32-36 [facility] Mean platelet volume determi nationOrdered By: Ariella Breaux on 04-29-2025 Platelet mean volume (Bld) [Entitic vol] 9.8 fL 6.2-12.0 [facility] Monocyte percentageOrdered B y: Ariella White on 04-29-2025 Monocytes/100 WBC (Bld) 13.3 % High 0-10 [facility] Neutrophil percentageOrdered By: White on 04-29-2025 Neutrophils/100 WBC (Bld) 35.2 % Low 47-70 [facility] Nucleated red blood cell per centageOrdered By: Ariella Saeid on 04-29-2025 Nucleated RBC/100 WBC (Bld) [Ratio] 0 % 0-5 [facility] Platelet countOrdered By: Jalyn vernon Saeid on 04-29-2025 Platelets (Bld) [#/Vol] 218 10*3/uL 150-450 [facility] Potassium measurement (mass/ volume)Ordered By: Ariella Breaux on 04-29-2025 Potassium (Unsp spec) [Mass/Vol] 3.9 mmol/L 3.3-5.1 [facility] RBC Auto (Bld) [#/Vol]Ordere d By: Ariella Breaux on 04-29-2025 RBC (Bld) [#/Vol] 3.45 10*6/uL Low 4.2-5.4 [facility] Serum creatinine measurement (mass/volume)Ordered By: Ariella Breaux on 04-29-2025 Creatinine [Mass/Vol] 1.12 mg/dL 0.70-1.20 [facility] Serum globulin measurementOr dered By: Ariella Breaux on 04-29-2025 Globulin (S) [Mass/Vol] 2.2 g/dL 2.2-4.2 [facility] Serum glucose measurement (m ass/volume)Ordered By: Ariella Breaux on 04-29-2025 Glucose [Mass/Vol] 89 mg/dL 70-99 [facility] Serum or plasma alanine brown otransferase (ALT) measurementOrdered By: Ariella Breaux on 04-29-2025 ALT [Catalytic activity/Vol] 15 U/L <35 [facility] Serum or plasma albumin pratima urement (mass/volume)Ordered By: Ariella Breaux on 04-29-2025 Albumin [Mass/Vol] 3.7 g/dL 3.4-4.8 [facility] Serum or plasma albumin/glob ulin mass ratioOrdered By: Ariella Saeid on 04-29-2025 Albumin/Globulin [Mass ratio] 1.7 {ratio} 0.9-2.4 [facility] Serum or plasma alkaline yoli sphatase measurementOrdered By: Ariella Saeid on 04-29-2025 ALP [Catalytic activity/Vol] 60 U/L 35-104 [facility] Serum or plasma calcium pratima urement (mass/volume)Ordered By: Ariella Breaux on 04-29-2025 Calcium [Mass/Vol] 9.6 mg/dL 7.6-11.0 [facility] Serum or plasma urea nitroge n measurement (mass/volume)Ordered By: Ariella Breaux on 04-29-2025 Urea nitrogen [Mass/Vol] 27 mg/dL High 4-19 [facility] Sodium levelOrdered By: Andrésu mn Seaid on 04-29-2025 Sodium [Moles/Vol] 139 mmol/L 133-145 [facility] Total proteinOrdered By: Andrés umn Saeid on 04-29-2025 Protein [Mass/Vol] 5.9 g/dL 5.9-8.4 [facility] White blood cell (WBC) count Ordered By: Ariella Breaux on 04-29-2025 WBC (Bld) [#/Vol] 4.5 10*3/uL 4.4-11.0 [facility] Basic Metabolic Profile (BMP )on 04-28-2025 BUN/CRE 29.1 RATIO High 10-20 [facility] Comment on above: Performed By: #### L 100.0100, L500.2500, L503.7505 #### [facility] Laboratory [address] [place] [address], [address] Calcium [Mass/Vol] 9.2 mg/dL Normal 7.6-11.0 [facility] Comment on above: Performed By: #### L 100.0100, L500.2500, L503.7505 #### [facility] [address] [place], [address] Chloride [Moles/Vol] 104 mmol/L Normal 98-108 [facility] Comment on above: Performed By: #### L 100.0100, L500.2500, L503.7505 #### [facility] [address] [place], [address] CO2 [Moles/Vol] 27.4 mmol/L Normal 21.0-32.0 [facility] Comment on above: Performed By: #### L 100.0100, L500.2500, L503.7505 #### [facility] [address] [place], [address] Creatinine [Mass/Vol] 1.17 mg/dL Normal 0.70-1.20 [facility] Comment on above: Performed By: #### L 100.0100, L500.2500, L503.7505 #### [facility] [address] [place], [address] ECRCL 29.75 ml/min Low 50-250 [facility] Comment on above: Performed By: #### L 100.0100, L500.2500, L503.7505 #### [facility] [address] [place], [address] GAP 8 Normal 5-15 [facility] Comment on above: Performed By: #### L 100.0100, L500.2500, L503.7505 #### [facility] [address] [place], [address] GFR/1.73 sq M.predicted among non-blacks MDRD (S/P/Bld) [Vol rate/Area] 45 mL/min/{1.73_m2} Low >60 [facility] Comment on above: Result Comment: mL/m in/1.73m2 CKD-EPI Creatinine Equation (2020) Performed By: #### L 100.0100, L500.2500, L503.7505 #### [facility] [address] [place], [address] Glucose [Mass/Vol] 90 mg/dL Normal 70-99 [facility] Comment on above: Performed By: #### L 100.0100, L500.2500, L503.7505 #### [facility] [address] [place], [address] Potassium [Moles/Vol] 4.3 mmol/L Normal 3.3-5.1 [facility] Comment on above: Performed By: #### L 100.0100, L500.2500, L503.7505 #### [facility] [address] [place], [address] Sodium [Moles/Vol] 140 mmol/L Normal 133-145 [facility] Comment on above: Performed By: #### L 100.0100, L500.2500, L503.7505 #### [facility] [address] [place], [address] Urea nitrogen [Mass/Vol] 34 mg/dL High 4-19 [facility] Comment on above: Performed By: #### L 100.0100, L500.2500, L503.7505 #### [facility] [address] [place], [address] CBC-Complete Blood Cnt No Di ffon 04-28-2025 Erythrocyte distribution width (RBC) [Ratio] 12.6 % Normal 11.6-14.6 [facility] Comment on above: Performed By: #### L 100.0100, L500.2500, L503.7505 #### [facility] [address] [place], [address] Hematocrit (Bld) [Volume fraction] 30.1 % Low 37-47 [facility] Comment on above: Performed By: #### L 100.0100, L500.2500, L503.7505 #### [facility] [address] [place], [address] Hemoglobin (Bld) [Mass/Vol] 10.2 g/dL Low 12.0-15.0 [facility] Comment on above: Performed By: #### L 100.0100, L500.2500, L503.7505 #### [facility] [address] [place], [address] MCH (RBC) [Entitic mass] 31.6 pg Normal 27.0-32.0 [facility] Comment on above: Performed By: #### L 100.0100, L500.2500, L503.7505 #### [facility] [address] [place], [address] MCHC (RBC) [Mass/Vol] 33.9 g/dL Normal 32-36 [facility] Comment on above: Performed By: #### L 100.0100, L500.2500, L503.7505 #### [facility] [address] [place], [address] MCV (RBC) [Entitic vol] 93.2 fL Normal 81-99 [facility] Comment on above: Performed By: #### L 100.0100, L500.2500, L503.7505 #### [facility] [address] [place], [address] Platelet mean volume (Bld) [Entitic vol] 9.5 fL Normal 6.2-12.0 [facility] Comment on above: Performed By: #### L 100.0100, L500.2500, L503.7505 #### [facility] [address] [place], [address] Platelets (Bld) [#/Vol] 213 10*3/uL Normal 150-450 [facility] Comment on above: Performed By: #### L 100.0100, L500.2500, L503.7505 #### [facility] [address] [place], [address] RBC (Bld) [#/Vol] 3.23 10*6/uL Low 4.2-5.4 [facility] Comment on above: Performed By: #### L 100.0100, L500.2500, L503.7505 #### [facility] [address] [place], [address] RDW SD 43.0 fl Normal 35.1-43.9 [facility] Comment on above: Performed By: #### L 100.0100, L500.2500, L503.7505 #### [facility] [address] [place], [address] WBC (Bld) [#/Vol] 4.3 10*3/uL Low 4.4-11.0 [facility] Comment on above: Performed By: #### L 100.0100, L500.2500, L503.7505 #### [facility] [address] [place], [address] Consultation - Cardiologyon 04-28-2025 Consultation - Cardiology [facility] Medical Records Department [address] [place] [address] Consultation - Cardiology 04/28/25 1358 MR#: [id number] Acct: [id number] Name: ZENAIDA EVANS Rep #: [id number] : 1935 89 From: Emmanuelle Lorenzana MD PCP: Dr. Susannah Capellan MD Status:ADM IN Location: [place] [address] Assessment Plan Assessment/Plan (1) (HFpEF) heart failure with preserved ejection fraction: PLAN: Compensated HFpEF. Discontinue indapamide. Continue with dapagliflozin 5 mg daily. (2) BRIGHT (acute kidney injury): PLAN: Prerenal due to hypovolemia (3) HTN (hypertension), benign: PLAN: Continue with labetalol 100 mg twice daily Continue with clonidine patch (4) History of deep vein thrombosis (DVT) of lower extremity: PLAN: Reduce apixaban to 2.5 mg twice daily given age and low weight. HPI Consult Data Date of Consult: 04/28/25 HPI Narrative HPI Narrative: ZENAIDA EVANS, is a 89 F with a HFpEF 60%, HTN, HLD, Hx recent LLE DVT on eliquis, Hypothyroidism, CKD stage IIIb, Hx Breast CA unclear type in remission who presents to the [facility] ED on 04/27/25 secondary to significant dizziness and lightheadedness. She was admitted due to BRIGHT secondary to prerenal and orthostatic hypotension [facility] Medical History Chronic diastolic CHF (congestive heart failure) Chronic kidney disease HTN (hypertension) CHF (congestive heart failure) Home Medications ???Medication ???Instructions ???Recorded ???Last Taken ???Type levothyroxine 88 mcg tablet 88 mcg PO DAILY thyroid 01/18/18 0 04/09/25 History labetalol 200 mg tablet 100 mg PO BID Blood pressure 10/1604/09/25 History melatonin 5 mg capsule 5 mg PO QHS Sleep 10/16/19 5 History clonidine 0.1 mg/24 hr weekly 1 patch transdermal QWEEK 11/06/23 04/09/25 History transdermal patch Hypertension minoxidil 2.5 mg tablet 2.5 mg PO DAILY Hair 04/09/25 Unkn own History nitroglycerin 0.4 mg sublingual 0.4 mg sublingual PRN Chest pain 0 04/09/25 Unknown History tablet biotin 5 mg capsule 5 mg PO DAILY Supplement 04/10/25 Unknown History dapagliflozin propanediol 5 mg 5 mg PO DAILY Heart Failure Unknown History tablet (Farxiga) ketoconazole 2 % shampoo 1 applic topical .2-3 times weekly 04/10/25 Unknown History Rash apixaban 5 mg tablet (Eliquis) 5 mg PO BID 30 days #60 tabs 04/11 Unknown Rx indapamide 2.5 mg tablet 2.5 mg PO DAILY 04/27/25 Unknown H istory Allergy/AdvReac Type Severity Reaction Status Date / Time iron Allergy Unknown Verified 04/27/25 13:16 pentazocine (From Talwin) Allergy Other Verified 04/27/25 13:16 scopolamine Allergy Other Verified 04/27/25 13:16 amlodipine AdvReac Unknown Significant Verified 04/27/25 13:16 swelling ARB-Angiotensin Receptor AdvReac Unknown BRIGHT/ Verified 04/27/25 13:16 Antagonist Hyperkalemia atorvastatin (From Lipitor) AdvReac Unknown Myalgia Verified 04/27/25 13:16 empagliflozin (From AdvReac Unknown Diarrhea Verified 04/27/25 13:16 Jardiance) hydralazine AdvReac Unknown Intolerance/ Verified 04/27/25 13:16 Nausea hydrochlorothiazide (hctz) AdvReac Unknown Containdication/ Verified 04/27/25 13:16 Hyponatremia losartan AdvReac Unknown BRIGHT with Verified 04/27/25 13:16 elevated potassium and creatinine spironolactone AdvReac Unknown Caused BP Verified 04/27/25 13:16 to go up verapamil AdvReac Unknown GI Upset Verified 04/27/25 13:16 Family History no significant family his Social History Smoking Status: Former smoker ROS Constitutional Constitutional: Reports systems reviewed and no addt'l complaints, except as documented Eyes Eyes: Reports systems reviewed and no addt'l complaints, except as documented ENT HEENT: Reports systems reviewed and no addt'l complaints, except as documented Cardiovascular Cardiovascular: Reports systems reviewed and no addt'l complaints, except as documented Respiratory/Chest Respiratory/Chest: Reports systems reviewed and no addt'l complaints, except as documented Gastrointestinal Gastrointestinal: Reports systems reviewed and no addt'l complaints, except as documented Genitourinary Genitourinary: Reports systems reviewed and no addt'l complaints, except as documented Musculoskeletal Musculoskeletal: Reports systems reviewed and no addt'l complaints, except as documented Integumentary Integumentary: Reports systems reviewed and no addt'l complaints, except as documented Neurologic Neurologic: Reports systems reviewed and no addt'l complaints, except as documented Psychiatric Psychiatric: Reports systems reviewed and no addt'l complaints, except as documented Endocrine Endocrinology: Reports systems reviewed and no addt'l co (more content not included)... Normal [facility] Discharge Instructionon 04-17 Discharge Instruction [facility] Medical Records Department [address] [place] [address] Instructions for Home/Discharge Instructions 04/28/25 1558 MR#: [id number] Acct: [id number] Name: ZENAIDA EVANS Rep #: [id number] : 1935 89 From: Ariella Breaux MD PCP: Dr. Susannah Capellan MD Status:ADM IN Discharge Instructions DC O2, CPAP, BIPAP needs Home O2 Discharge instructions: No Dressing / Incision Discharge Activity: - (Recommend continued routine activity. Please assure slow transitions from laying->seated->standing position changes. Please avoid prolonged heat exposure.) May resume sexual activity in: 10-14 days Weight Bearing Status: Weight bearing as tolerated Dressing / Incision Call your doctor if you observe: Fever of 101 or Higher, Shortness of breath, Dizziness, Swelling in the ankles, Chest pain, Increased palpitations (irregular heartbeat), Calf discomfort and Uncontrolled pain Follow Up Care Test Results: Test results from this visit will be discussed in further detail at your follow-up appointment, if applicable. Discharge Plan Admission Admit Date/Time: 04/27/25 20:05 Primary Reason for Your Visit: Acute Kidney Injury, Orthostasis Attending Provider: Ariella Breaux Primary Care Provider: Susannah Capellan Consulting Providers: Adilson Melchor; Emmanuelle Lorenzana Instructions Additional Instructions / Restrictions: ADDITIONAL FOLLOW-UP/EVALUATION: --ED evaluation with chest x-ray with no acute cardiopulmonary findings, chest CTA with no pulmonary emboli with a left kidney indeterminate lesion, chronic and axillary findings unchanged, cardiac enzymes initially 89 with repeat 84 not concerning given recent cardiac catheterization with no acute coronary disease noted, BNP 614. --Initial ED renal function included BUN/creatinine 44/1.78, GFR 27 with baseline creatinine 1.1-1.3 but has vacillated from review of previous labs. Repeat renal function trending improved with 04/28/25 BUN/creatinine 34/1.17, GFR 45--> and most recently on day of discharge 04/29/25 BUN/creatinine 27/1.12, CFR 47. Please have repeat basic metabolic panel outpatient at follow-up with your primary care physician. --CTA Lung w/ incidentally noted left kidney indeterminate lesion. Please have follow-up outpatient nonemergent evaluation to determine if cystic in nature. --Given presentation with notable orthostatic vital signs (significant changes in heart rate/blood pressure with changes from laying, sitting to standing) with acute kidney injury suspected secondary to over diuresis your medications including indapamide and dapagliflozin were temporarily held. You were started on Procardia to assist with blood pressure control in the interim. The technical support agent at discharge has recommended continuation of your dapagliflozin but discontinuation of indapamide as well as change of your Eliquis to 2.5 mg p.o. twice daily in accordance with altered dosing based on age and creatinine function. We have also prescribed Procardia and recommend given your elevated blood pressure above parameters that you continue this medication until reevaluation by your technical support agent with further changes per their discretion. --The medication hold of the indapamide, change of Eliquis to renally dosing of 2.5 mg twice daily and initiated medication Procardia may be reassessed outpatient with follow-up with your technical support agent and further changes made depending on your repeat vital sign assessments at that time as well as repeat basic metabolic function assessment per your primary care physician. -- Please also have repeat orthostatic vital sign assessment with your primary care and technical support agent at follow-up. Discharge Orders/Prescriptions Prescriptions: New Eliquis 2.5 mg tablet 2.5 mg PO BID 30 Days Qty: 60 0RF nifedipine 60 mg Tablet Extended Release 24hr 60 mg PO DAILY 30 Days Qty: 30 0RF Continued levothyroxine 88 MCG tablet 88 mcg PO DAILY labetalol 200 MG tablet 100 mg PO BID melatonin 5 MG capsule 5 mg PO QHS clonidine 0.1 mg/24 hr patch weekly 1 patch transdermal QWEEK Patient Comments: Apply 1 patch topically one time a week as directed minoxidil 2.5 mg tablet 2.5 mg PO DAILY nitroglycerin 0.4 mg tablet, sublingual 0.4 mg sublingual PRN dapagliflozin propanediol [Farxiga] 5 mg tablet 5 mg PO DAILY ketoconazole 2 % shampoo 1 applic topical .2-3 times weekly biotin 5 mg capsule 5 mg PO DAILY Discontinued Eliquis 5 mg tablet 5 mg PO BID 30 Days Qty: 60 2RF indapamide 2.5 mg tablet 2.5 mg PO DAILY Referrals / Follow Up: Paul Bautista [Other] (Please follow-up immediately within the next 3-5 days with your [place] [employer]. You may see the [employer] P[employer]ER/PA in their office as well.) Susannah Capellan MD [Primary Care Provider] - (Please follow-up with your primary care physician for evaluation followi (more content not included)... Normal [facility] Absolute lymphocyte countOrd ered By: Agustín Ang on 04-27-2025 Lymphocytes Auto (Unsp spec) [#/Vol] 1.47 10*3/uL 0.83-4.51 [facility] Absolute neutrophil countOrd ered By: Agustín Ang on 04-27-2025 Neutrophils (Bld) [#/Vol] 2.2 10*3/uL 2.0-7.7 [facility] Anion gap in Serum or Plasma Ordered By: Agustín Ang on 04-27-2025 Anion gap [Moles/Vol] 12 mmol/L 5-15 [facility] Automated lymphocyte count a s percentage of total leukocytesOrdered By: Agustín Ang on 04-27-2025 Lymphocytes/100 WBC Auto (Unsp spec) 32.8 % -41 [facility] BUN/creatinine ratioOrdered By: Agustín Ang on 04-27-2025 Urea nitrogen/Creatinine [Mass ratio] 24.7 mg/mg High - [facility] Basic Metabolic Profile (BMP )on 04-27-2025 BUN/CRE 24.7 RATIO High - [facility] Comment on above: Performed By: #### L 100.0100, L500.2500, L503.7505 #### [facility] Laboratory [address] [place], [place], [id number] Calcium [Mass/Vol] 10.1 mg/dL Normal 7.6-11.0 [facility] Comment on above: Performed By: #### L 100.0100, L500.2500, L503.7505 #### [facility] Laboratory [address] [place], [address] Chloride [Moles/Vol] 100 mmol/L Normal 98-108 [facility] Comment on above: Performed By: #### L 100.0100, L500.2500, L503.7505 #### [facility] [address] [place], [address] CO2 [Moles/Vol] 28.2 mmol/L Normal 21.0-32.0 [facility] Comment on above: Performed By: #### L 100.0100, L500.2500, L503.7505 #### [facility] [address] [place], [address] Creatinine [Mass/Vol] 1.78 mg/dL High 0.70-1.20 [facility] Comment on above: Performed By: #### L 100.0100, L500.2500, L503.7505 #### [facility] [address] [place], [address] ECRCL 20.09 ml/min Low 50-250 [facility] Comment on above: Performed By: #### L 100.0100, L500.2500, L503.7505 #### [facility] [address] [place], [address] GAP 12 Normal 5-15 [facility] Comment on above: Performed By: #### L 100.0100, L500.2500, L503.7505 #### [facility] [address] [place], [address] GFR/1.73 sq M.predicted among non-blacks MDRD (S/P/Bld) [Vol rate/Area] 27 mL/min/{1.73_m2} Low >60 [facility] Comment on above: Result Comment: mL/m in/1.73m2 CKD-EPI Creatinine Equation (2020) Performed By: #### L 100.0100, L500.2500, L503.7505 #### [facility] [address] [place], [address] Glucose [Mass/Vol] 110 mg/dL High 70-99 [facility] Comment on above: Performed By: #### L 100.0100, L500.2500, L503.7505 #### [facility] [address] [place], [address] Potassium [Moles/Vol] 4.3 mmol/L Normal 3.3-5.1 [facility] Comment on above: Performed By: #### L 100.0100, L500.2500, L503.7505 #### [facility] [address] [place], [address] Sodium [Moles/Vol] 140 mmol/L Normal 133-145 [facility] Comment on above: Performed By: #### L 100.0100, L500.2500, L503.7505 #### [facility] [address] [place], [address] Urea nitrogen [Mass/Vol] 44 mg/dL High 4-19 [facility] Comment on above: Performed By: #### L 100.0100, L500.2500, L503.7505 #### [facility] [address] [place], [address] Basophil percentageOrdered B y: Agustín Ang on 04-27-2025 Basophils/100 WBC (Bld) 0.7 % 0-1 [facility] CBC W/Diff, Automatedon 04-17 Absolute Lymph 1.47 X10 3/uL Normal 0.83-4.51 [facility] Comment on above: Performed By: #### L 100.0100, L500.2500, L503.7505 #### [facility] [address] [place], [address] Absolute Neut 2.2 X10 3/uL Normal 2.0-7.7 [facility] Comment on above: Performed By: #### L 100.0100, L500.2500, L503.7505 #### [facility] [address] [place], [address] Basophils/100 WBC (Bld) 0.7 % Normal 0-1 [facility] Comment on above: Performed By: #### L 100.0100, L500.2500, L503.7505 #### [facility] [address] [place], [address] Eosinophils/100 WBC (Bld) 4.5 % Normal 0-5 [facility] Comment on above: Performed By: #### L 100.0100, L500.2500, L503.7505 #### [facility] [address] [place], [address] Erythrocyte distribution width (RBC) [Ratio] 12.5 % Normal 11.6-14.6 [facility] Comment on above: Performed By: #### L 100.0100, L500.2500, L503.7505 #### [facility] [address] [place], [address] Hematocrit (Bld) [Volume fraction] 34.4 % Low 37-47 [facility] Comment on above: Performed By: #### L 100.0100, L500.2500, L503.7505 #### [facility] [address] [place], [address] Hemoglobin (Bld) [Mass/Vol] 11.4 g/dL Low 12.0-15.0 [facility] Comment on above: Performed By: #### L 100.0100, L500.2500, L503.7505 #### [facility] [address] [place], [address] IG% 0.200 Normal 0.0-0.9 [facility] Comment on above: Result Comment: IG% - Immature Granulocytes (promyelocytes, myelocytes and metamyelocytes) > 1% indicates that a LEFT SHIFT is Present. Performed By: #### L 100.0100, L500.2500, L503.7505 #### [facility] [address] [place], [address] Lymphocytes/100 WBC (Bld) 32.8 % Normal 19-41 [facility] Comment on above: Performed By: #### L 100.0100, L500.2500, L503.7505 #### [facility] [address] [place], [address] MCH (RBC) [Entitic mass] 31.2 pg Normal 27.0-32.0 [facility] Comment on above: Performed By: #### L 100.0100, L500.2500, L503.7505 #### [facility] [address] [place], [address] MCHC (RBC) [Mass/Vol] 33.1 g/dL Normal 32-36 [facility] Comment on above: Performed By: #### L 100.0100, L500.2500, L503.7505 #### [facility] [address] [place], [address] MCV (RBC) [Entitic vol] 94.2 fL Normal 81-99 [facility] Comment on above: Performed By: #### L 100.0100, L500.2500, L503.7505 #### [facility] [address] [place], [address] Monocytes/100 WBC (Bld) 12.7 % High 0-10 [facility] Comment on above: Performed By: #### L 100.0100, L500.2500, L503.7505 #### [facility] [address] [place], [address] Neutrophils/100 WBC (Bld) 49.1 % Normal 47-70 [facility] Comment on above: Performed By: #### L 100.0100, L500.2500, L503.7505 #### [facility] [address] [place], [address] Nucleated RBC (Bld) [#/Vol] 0 10*3/uL Normal 0-5 [facility] Comment on above: Performed By: #### L 100.0100, L500.2500, L503.7505 #### [facility] [facility] [address] [place], [address] Platelet mean volume (Bld) [Entitic vol] 9.6 fL Normal 6.2-12.0 [facility] Comment on above: Performed By: #### L 100.0100, L500.2500, L503.7505 #### [facility] [address] [place], [address] Platelets (Bld) [#/Vol] 245 10*3/uL Normal 150-450 [facility] Comment on above: Performed By: #### L 100.0100, L500.2500, L503.7505 #### [facility] [address] [place], [address] RBC (Bld) [#/Vol] 3.65 10*6/uL Low 4.2-5.4 [facility] Comment on above: Performed By: #### L 100.0100, L500.2500, L503.7505 #### [facility] [address] [place], [address] RDW SD 43.3 fl Normal 35.1-43.9 [facility] Comment on above: Performed By: #### L 100.0100, L500.2500, L503.7505 #### [facility] [address] [place], [address] WBC (Bld) [#/Vol] 4.5 10*3/uL Normal 4.4-11.0 [facility] Comment on above: Performed By: #### L 100.0100, L500.2500, L503.7505 #### [facility] [place], [address] BRANDIOVon 04-27-2025 CNOV Office Visit (INTMBR ) ZENAIDA EVANS ([id number]) 1935 F Date Time Provider Department 04/27/25 10:40 AM EVE DANIEL INTMBR During your visit today, we recorded the following information about you: Temperature Pulse Blood pressure Weight 98.3 degrees 71/minute 119/64 58.3 kg Eve Daniel PA-C 04/27/2025 2:20 PM Signed CC: Zenaida Cristofer Evans is an 89-year-old female with a history of heart failure, presenting for follow-up after a recent hospitalization for an NSTEM, with ongoing symptoms of dizziness, lightheadedness, and dyspnea. The patient consented to the use of [employer] software for draft documentation of the visit consistent with [facility]'s Notice of Privacy Practices. HPI: Dizziness [...] Hospitalization: - Hospitalized for a suspected mild MA approximately a month ago. - Cardiac catheterization revealed no blockages - Underwent a CT scan of the chest to rule out a pulmonary embolism; results were negative. Follow-Up with Dr. Hannon: - Last seen by Dr. Capellan on April 17; next virtual follow-up scheduled for May 14. - Dr. Capellan noted symptoms of nausea and dizziness, potentially related to Eliquis. - Recommended reassessment after one month with repeat ultrasound and D-dimer. - Dr. Capellan ordered an MRI for a pancreatic cyst, which Zenaida postponed due to feeling unwell. ROS: As noted above in HPI Physical Exam: BP 119/64 Pulse 71 Temp 36.8 ?C (98.3 ?F) (Oral) Wt 58.3 kg (128 lb 8.5 oz) SpO2 91% BMI 20.43 kg/m? Physical Exam Vitals reviewed. Constitutional: General: She [...] - I discussed with patient's PCP, Dr. Capellan. Recommended immediate evaluation in the emergency room for CT chest to rule out pulmonary embolism. - Recommend evaluation at the [place] [facility]. She states she has arranged transportation and her ride would not be able to wait. She states she will go to [facility]. I did call down there and gave report to a physician at 11:25 AM with my concerns. I did have her sign an AMA form and she verbalizes understanding the risks of , disability,worsening of condition and that she may return to our office or ER, or well puller head and call 911 at any time The patient has shown capacity for decision making by expressing the choice to leave, understanding the treatment options and plan being (more content not included)... [facility] ZENAIDA EVANS ([id number]) 1935 F Date Time Provider Department 04/27/25 [facility] During your visit today, we recorded the following information about you: Nancie Zurita, RN 04/27/2025 2:01 PM Signed Call from pt stating that she is in [facility] but they are not "sure what to do". Communicated with PCP and was advised that PCP has concerns that oxygen at PCP visit "today was 88-89% and pt has a DVT, Is concerned about a PE". Since pt could not go to ED in [place] due to transportation issues, pt had to sign a form that she was leaving [facility] against medical advice after visit today. Spoke to [facility] desk personnel and advised of concerns. The rooms are full now but physician is to be notified of concerns. Pt advised to stay until can be seen. Pt is agreeable. Allergies As of Date: 04/27/2025 Noted Allergy Reaction SCOPOLAMINE 10/30/2011 1 - Mental Status Change Comments: Hallucinations AMLODIPINE 03/01/2020 14 - Other: See Comments Comments: Significant swelling even on 2.5 mg per day. ARB-ANGIOTENSIN RECEPTOR ANTAGONI*11/16/2023 15 - Contraindication-Medical Perea* Comments: Bright, hyperkalemia HCTZ (THIAZIDES) 12/15/2019 15 - Contraindication-Medical Perae* Comments: Hyponatremia at 12.5 mg. HYDRALAZINE 08/12/2020 [...] - GI Upset Comments: constipation Date Reviewed: 04/27/2025 Reviewed by: Eve Daniel PA-C - Fully Assessed Reason for Visit: Patient Update [1234] Prescriptions as of 04/27/2025 - ELIQUIS 5 mg tab(s) Take 5 [...] of 10/05/2022: Problem List As Of Date 04/27/2025 Noted Resolved Hypertensive heart and chronic kidney [...] Hypothyroid [E03.9] 05/21/2011 09/21/2013 Visit for gynecologic exami (more content not included)... Normal [facility] CTA Chest W/WO Contraston CTA Chest W/WO Contrast [facility] Imaging Services [address] [place] [address] CTA Chest W/WO Contrast MR#: [id number] Acct: [id number] Name: ZENAIDA EVANS Rep #: [id number] : 1935 F 89 From: Fernando Landis MD PCP: Dr. Susannah Capellan MD Status: [facility] Study: CTA Chest W/WO Contrast Date of Exam: 04/27/25 Exam# [id number] Ordering Dr: Keith Cronin MD PROCEDURE: CTA CHEST W/WO CONTRAST 04/27/2025 REASON FOR EXAM: HYPOXIA WITH AMBULATION, HISTORY OF PE TECHNIQUE: CTA CHEST W/WO CONTRAST Multiplanar Sagittal and Coronal images were obtained. CONTRAST: Isovue 370 VOLUME: 75 mL One or more dose reduction techniques were used (e.g., Automated exposure control, adjustment of the mA and/or kV according to patient size, use of iterative reconstruction technique). RADIATION DOSE SUMMARY: CTDlvol: 4.49+ 3.28 mGy DLP: 115.57 mGycm COMPARISON: 04/11/2025. FINDINGS: The peripheral soft tissues are unremarkable. Degenerative changes of the spine. Normal thyroid. Normal caliber esophagus. Partially visualized left kidney indeterminate lesion. Mild atherosclerosis of a normal caliber thoracic aorta. No mediastinal lymphadenopathy. The heart is normal in size. No pulmonary artery filling defects. Stable sub 6 mm pulmonary nodules. Micronodular opacities within the right middle lobe which are unchanged and likely chronic. CT/CTA Chest W/WO Contrast IMPRESSION: No pulmonary embolism. Left kidney indeterminate lesion. Further characterization with nonemergent ultrasound is recommended to determine if it is cystic. Chronic and ancillary findings as above. Reading Location: [id number] CC: Dr. Susannah Capellan MD; Dr. Keith Cronin MD Senior Advocate: Signed Normal [facility] Carbon dioxide, total [Moles /volume] in Central venous bloodOrdered By: Agustín Ang on 04-27-2025 CO2 [Moles/Vol] 28.2 mmol/L 21.0-32.0 [facility] Chest PA and Lateralon 04-27 Chest PA and Lateral [facility] Imaging Services [address] [place] [address] [id number] Chest PA and Lateral MR#: [id number] Acct: [id number] Name: ZENAIDA EVANS Rep #: [id number] : 1935 F 89 From: Guy Nazario MD PCP: Dr. Susannah Capellan MD Status: [facility] ER Study: Chest PA and Lateral Date of Exam: 04/27/25 Exam# [id number] Ordering Dr: Agustín Ang PROCEDURE: CHEST PA AND LATERAL 04/27/2025 REASON FOR EXAM: DYSPNEA TECHNIQUE: CHEST PA AND LATERAL COMPARISON: 04/09/2025 FINDINGS: Lungs/Pleura: No focal consolidation, pneumothorax, or significant pleural effusion. Findings suggestive of COPD/emphysema. No vascular congestion. Heart/Mediastinum: Within normal limits. Bones/Soft tissues: Calcified nodular density with surgical clips in the right breast soft tissues projecting over the right lower lung zone. Degenerative changes of the spine. Qualitative osteopenia. RAD/Chest PA and Lateral IMPRESSION: No evidence of acute cardiopulmonary disease. Reading Location: [id number] CC: Dr. Susannah Capellan MD; JOHNNA Witt Senior Advocate: Signed Normal [facility] Chloride assayOrdered By: Tony Ang on 04-27-2025 Chloride [Moles/Vol] 100 mmol/L 98-108 [facility] Emergency Department Summary on 04-27-2025 Emergency Department Summary [facility] Medical Records Department [address] [place] [address] Emergency Department Summary 04/27/25 MR#: [id number] Acct: [id number] Name: ZENAIDA EVANS Rep #: [id number] : 1935 89 From: Keith Cronin MD PCP: Dr. Susannah Capellan MD Status:ADM IN Location: [place] [address] HPI History of Present Illness Chief Complaint: Dizziness Narrative Narrative: 89-year-old female with past medical history of HTN, HLD, CHF, left lower extremity DVT on Eliquis, hypothyroidism was sent in by her primary care office for low oxygen levels. She was admitted for an NSTEMI on 04/09/2025. Dr. Reyes heart cath which she said was negative. She had an ultrasound showing a left leg DVT and was started on Eliquis. Since she went home on Eliquis she reports feeling lightheaded with standing. She will have to hold onto the counter lower her head for minute until it passes. She denies syncope, she denies room spinning. She states she is also felt short of breath when walking around her home or going upstairs since then. No chest pain since her admission. She followed up with her primary care office today and her pulse ox was 88% so they recommended she come to the ED. Her baseline weight is 130 pounds and she takes Lasix if she is up 3 pounds but she has not needed to do this for a long time. She states she is actually lost weight and is around 125. [facility] Medical History CHF (congestive heart failure) Home Medications ???Medication ???Instructions ???Recorded ???Last Taken ???Type levothyroxine 88 mcg tablet 88 mcg PO DAILY thyroid 01/18/18 0 04/09/25 History labetalol 200 mg tablet 100 mg PO BID Blood pressure 10/1604/09/25 History melatonin 5 mg capsule 5 mg PO QHS Sleep 10/16/19 5 History clonidine 0.1 mg/24 hr weekly 1 patch transdermal QWEEK 11/06/23 04/09/25 History transdermal patch Hypertension minoxidil 2.5 mg tablet 2.5 mg PO DAILY Hair 04/09/25 Unkn own History nitroglycerin 0.4 mg sublingual 0.4 mg sublingual PRN Chest pain 0 04/09/25 Unknown History tablet biotin 5 mg capsule 5 mg PO DAILY Supplement 04/10/25 Unknown History dapagliflozin propanediol 5 mg 5 mg PO DAILY Heart Failure Unknown History tablet (Farxiga) ketoconazole 2 % shampoo 1 applic topical .2-3 times weekly 04/10/25 Unknown History Rash apixaban 5 mg tablet (Eliquis) 5 mg PO BID 30 days #60 tabs 04/11 Unknown Rx indapamide 2.5 mg tablet 2.5 mg PO DAILY 04/27/25 Unknown H istory Allergy/AdvReac Type Severity Reaction Status Date / Time iron Allergy Unknown Verified 04/27/25 13:16 pentazocine (From Talwin) Allergy Other Verified 04/27/25 13:16 scopolamine Allergy Other Verified 04/27/25 13:16 amlodipine AdvReac Unknown Significant Verified 04/27/25 13:16 swelling ARB-Angiotensin Receptor AdvReac Unknown BRIGHT/ Verified 04/27/25 13:16 Antagonist Hyperkalemia atorvastatin (From Lipitor) AdvReac Unknown Myalgia Verified 04/27/25 13:16 empagliflozin (From AdvReac Unknown Diarrhea Verified 04/27/25 13:16 Jardiance) hydralazine AdvReac Unknown Intolerance/ Verified 04/27/25 13:16 Nausea hydrochlorothiazide (hctz) AdvReac Unknown Containdication/ Verified 04/27/25 13:16 Hyponatremia losartan AdvReac Unknown BRIGHT with Verified 04/27/25 13:16 elevated potassium and creatinine spironolactone AdvReac Unknown Caused BP Verified 04/27/25 13:16 to go up verapamil AdvReac Unknown GI Upset Verified 04/27/25 13:16 Family History no significant family his Social History Smoking Status: Former smoker EXAM Physical Exam Const Vital Signs: 04/27/25 13:15 04/27/25 15:15 04/27/25 15:16 Temperature 98 F Temperature Source Oral Pulse Rate 78 89 Pulse Rate [Lying] 64 Pulse Rate [Sitting (for 1 minute prior to obtaining)] 78 Pulse Rate [Standing (for 1 minute prior to obtaining)] 65 Respiratory Rate 16 14 Blood Pressure 147/72 H 139/66 H Blood Pressure [Lying] 186/76 H Blood Pressure [Sitting (for 1 minute prior to obtaining)] 173/78 H Blood Pressure [Standing (for 1 minute prior to obtaining)] 134/70 H Blood Pressure Mean 97 90 Blood Pressure Mean [Lying] 112 Blood Pressure Mean [Sitting (for 1 minute prior to obtaining)] 109 Blood Pressure Mean [Standing (for 1 minute prior to obtaining)] 91 Pulse Ox 95 98 Oxygen Delivery Method Room Air 04/27/25 17:05 04/27/25 17:11 04/27/25 17:12 Temperature Temperature Source Pulse Rate 56 L 58 L 57 L Pulse Rate [Lying] Pulse Rate [Sitting (for 1 minute prior to obtaining)] Pulse Rate [Standing (for 1 minute prior to obtaining)] Respiratory Rate (more content not included)... Normal [facility] Eosinophil percentageOrdered By: Agustín Ang on 04-27-2025 Eosinophils/100 WBC (Bld) 4.5 % 0-5 [facility] Erythrocyte distribution wid th ratioOrdered By: Agustín Ang on 04-27-2025 Erythrocyte distribution width (RBC) [Ratio] 12.5 % 11.6-14.6 [facility] Erythrocyte distribution wid th standard deviationOrdered By: Agustín Ang on 04-27-2025 Erythrocyte distribution width (RBC) [Ratio] 43.3 fl 35.1-43.9 [facility] Glomerular filtration rate ( GFR) estimation/1.73 sq m using serum, plasma, or whole bOrdered By: Agustín Ang on 04-27-2025 GFR/1.73 sq M.predicted among non-blacks MDRD (S/P/Bld) [Vol rate/Area] 27 mL/min/{1.73_m2} Low >60 [facility] Comment on above: mL/min/1.73m2 CKD-EP I Creatinine Equation (2020) H AND P Exam - [facility] 04-27-2025 H&P Exam - Hospitalist [facility] Medical Records Department [address] [place] [address] H P Exam - Hospitalist 04/27/251935 MR#: [id number] Acct: [id number] Name: ZENAIDA EVANS Rep #: [id number] : 1935 89 From: Adilson Melchor DO PCP: Dr. Susannah Capellan MD Status:ADM IN Location: [place] [address] HPI - General General Date of Admission: 04/27/25 Date of Service: 04/27/25 Chief Complaint: Dizziness and hypoxia HPI Narrative ZENAIDA EVANS, is a 89 F who presented to [facility] ED on 04/27/2025 with dizziness and hypoxia. Patient was recently hospitalized here from 04/09-04/11 for an NSTEMI. Medical history significant for HFpEF, hypertension, CKD stage IIIb and hypothyroidism. Follows with F cardiology. Left heart cath showed only mild disease in circumflex and RCA and moderate disease up to 50% in the LAD. Echo showed EF 60%, stage I diastolic dysfunction, no other concerning findings. Lower extremity ultrasound did show an acute DVT in the left gastroc and posterior tibial veins, but CTA chest showed no PE. Patient was discharged home on Eliquis 5 mg twice daily at that time; decision was made to not give loading dose given small DVT to minimize risk of bleeding. Patient notes that since returning home she has had intermittent lightheadedness and dizziness with standing. Denies any syncopal events. She is also felt some shortness of breath when walking around the home. She saw her PCP today and her pulse ox was 88%, so they recommended she come in for further evaluation. In the ED she was hypertensive to the 180s systolic and oxygen saturation was 95% on room air but dropped to 85% with exertion. CBC was benign. BMP showed creatinine 1.78 (baseline around 1.1-1.2), BUN 44. Troponin trend 89 > 84 but these were stable from prior values. NT proBNP normal at 614. CTA chest showed no PE, stable small pulmonary nodules and otherwise clear lung bañuelos. Orthostatic vitals were obtained and were positive, with SBP drop from 173 sitting to 134 standing. Given her BRIGHT with orthostatic hypotension and hypoxia with exertion, hospitalist was contacted for admission. I saw the patient at bedside in the ED. She was sitting back comfortably in bed, conversing normally, in no acute distress. She denied any lightheadedness or dizziness at rest. Denied any chest pain or shortness of breath. Noted that she has been taking her home medications as prescribed and her urine output has been slightly decreased over the past few days. She does report drinking lots of fluids recently. She denies any other acute concerns currently. Will be admitted for further management. [facility] Medical History CHF (congestive heart failure) Home Medications ???Medication ???Instructions ???Recorded ???Last Taken ???Type levothyroxine 88 mcg tablet 88 mcg PO DAILY thyroid 01/18/18 0 04/09/25 History labetalol 200 mg tablet 100 mg PO BID Blood pressure 10/1604/09/25 History melatonin 5 mg capsule 5 mg PO QHS Sleep 10/16/19 5 History clonidine 0.1 mg/24 hr weekly 1 patch transdermal QWEEK 11/06/23 04/09/25 History transdermal patch Hypertension minoxidil 2.5 mg tablet 2.5 mg PO DAILY Hair 04/09/25 Unkn own History nitroglycerin 0.4 mg sublingual 0.4 mg sublingual PRN Chest pain 0 04/09/25 Unknown History tablet biotin 5 mg capsule 5 mg PO DAILY Supplement 04/10/25 Unknown History dapagliflozin propanediol 5 mg 5 mg PO DAILY Heart Failure Unknown History tablet (Farxiga) ketoconazole 2 % shampoo 1 applic topical .2-3 times weekly 04/10/25 Unknown History Rash apixaban 5 mg tablet (Eliquis) 5 mg PO BID 30 days #60 tabs 04/11 Unknown Rx indapamide 2.5 mg tablet 2.5 mg PO DAILY 04/27/25 Unknown H istory Allergy/AdvReac Type Severity Reaction Status Date / Time iron Allergy Unknown Verified 04/27/25 13:16 pentazocine (From Talwin) Allergy Other Verified 04/27/25 13:16 scopolamine Allergy Other Verified 04/27/25 13:16 amlodipine AdvReac Unknown Significant Verified 04/27/25 13:16 swelling ARB-Angiotensin Receptor AdvReac Unknown BRIGHT/ Verified 04/27/25 13:16 Antagonist Hyperkalemia atorvastatin (From Lipitor) AdvReac Unknown Myalgia Verified 04/27/25 13:16 empagliflozin (From AdvReac Unknown Diarrhea Verified 04/27/25 13:16 Jardiance) hydralazine AdvReac Unknown Intolerance/ Verified 04/27/25 13:16 Nausea hydrochlorothiazide (hctz) AdvReac Unknown Containdication/ Verified 04/27/25 13:16 Hyponatremia losartan AdvReac Unknown BRIGHT with Verified 04/27/25 13:16 elevated potassium and creatinine spironolactone AdvReac Unknown Caused BP Verified 04/27/25 13:16 to go up verapamil AdvReac Unknown GI Upset Verified 04/27/25 13:16 Family History (more content not included)... Normal [facility] Hematocrit Auto (Bld) [Volum e fraction]Ordered By: Agustín Ang on 04-27-2025 Hematocrit (Bld) [Volume fraction] 34.4 % Low 37-47 [facility] Hemoglobin measurementOrdere d By: Agustín Ang on 04-27-2025 Hemoglobin (Bld) [Mass/Vol] 11.4 g/dL Low 12.0-15.0 [facility] Immature granulocytes/100 WB C Auto (Bld)Ordered By: Agustín Ang on 04-27-2025 Immature granulocytes/100 WBC (Bld) 0.200 % 0.0-0.9 [facility] Comment on above: IG% - Immature Granu locytes (promyelocytes, myelocytes and metamyelocytes) > 1% indicates that a LEFT SHIFT is Present. L499.0042on 04-27-2025 Trop T High Sen 84 ng/L Invalid Interpretation Code <=14 [facility] Comment on above: Result Comment: Crit ical Result(s) Called at: 04/27/25-06:47 by: Carrie Mosley.??Results read back by same. Performed By: #### L 503.7505 #### [facility] [address] [place], [address] Trop T High Sen Normal <=14 [facility] Comment on above: Result Comment: Rosmery sheriff via OM: Ordered Performed By: #### L 100.0100, L500.2500, L503.7505 #### [facility] [address] [place], [address] L501.4021on 04-27-2025 Trop T High Sen 89 ng/L Invalid Interpretation Code <=14 [facility] Comment on above: Result Comment: Crit ical Result(s) Called at: 04/27/2025-17:05 by: Carrie Mosley.??Results read back by same. Performed By: #### L 501.4021 #### [facility] [address] [place], [address] L503.7505on 04-27-2025 Natriuretic peptide B (Bld) [Mass/Vol] 614 pg/mL Normal <=1800 [facility] Comment on above: Result Comment: Hear t Failure Unlikely: < 300 pg/mL Heart Failure Likely < 50 Years: > 450 pg/mL 50-75 Years: > 900 pg/mL >75 Years: > 1800 pg/mL Performed By: #### L 100.0100, L500.2500, L503.7505 #### [facility] [address] [place], [address] MCV (mean corpuscular volume ) determinationOrdered By: Agustín Ang on 04-27-2025 MCV (RBC) [Entitic vol] 94.2 fL 81-99 [facility] Mean corpuscular hemoglobin (MCH) determinationOrdered By: Agustín Ang on 04-27-2025 MCH (RBC) [Entitic mass] 31.2 pg 27.0-32.0 [facility] Mean corpuscular hemoglobin concentration (MCHC) determinationOrdered By: Agustín Ang on 04-27-2025 MCHC (RBC) [Mass/Vol] 33.1 g/dL 32-36 [facility] Mean platelet volume determi nationOrdered By: Agustín Ang on 04-27-2025 Platelet mean volume (Bld) [Entitic vol] 9.6 fL 6.2-12.0 [facility] Monocyte percentageOrdered B y: Agustín Ang on 04-27-2025 Monocytes/100 WBC (Bld) 12.7 % High 0-10 [facility] Natriuretic peptide.B prohor sarbjit N-Terminal [Mass/volume] in Serum or PlasmaOrdered By: Agustín Ang on 04-27-2025 Natriuretic peptide.B prohormone N-Terminal [Mass/Vol] 614 pg/mL <1800 [facility] Comment on above: Heart Failure Unlike ly: < 300 pg/mLHeart Failure Likely< 50 Years: > 450 pg/mL50-75 Years: > 900 pg/mL>75 Years: > 1800 pg/mL Neutrophil percentageOrdered By: Agustín Ang on 04-27-2025 Neutrophils/100 WBC (Bld) 49.1 % 47-70 [facility] Nucleated red blood cell per centageOrdered By: Agustín Ang on 04-27-2025 Nucleated RBC/100 WBC (Bld) [Ratio] 0 % 0-5 [facility] Platelet countOrdered By: Tony Ang on 04-27-2025 Platelets (Bld) [#/Vol] 245 10*3/uL 150-450 [facility] Potassium measurement (mass/ volume)Ordered By: Agustín Ang on 04-27-2025 Potassium (Unsp spec) [Mass/Vol] 4.3 mmol/L 3.3-5.1 [facility] RBC Auto (Bld) [#/Vol]Ordere d By: Agustín Ang on 04-27-2025 RBC (Bld) [#/Vol] 3.65 10*6/uL Low 4.2-5.4 [facility] Serum creatinine measurement (mass/volume)Ordered By: Agustín Ang on 04-27-2025 Creatinine [Mass/Vol] 1.78 mg/dL High 0.70-1.20 [facility] Serum glucose measurement (m ass/volume)Ordered By: Agustín Ang on 04-27-2025 Glucose [Mass/Vol] 110 mg/dL High 70-99 [facility] Serum or plasma calcium pratima urement (mass/volume)Ordered By: Agustín Ang on 04-27-2025 Calcium [Mass/Vol] 10.1 mg/dL 7.6-11.0 [facility] Serum or plasma urea nitroge n measurement (mass/volume)Ordered By: Agustín Ang on 04-27-2025 Urea nitrogen [Mass/Vol] 44 mg/dL High 4-19 [facility] Sodium levelOrdered By: Agustín Ang on 04-27-2025 Sodium [Moles/Vol] 140 mmol/L 133-145 [facility] Troponin T.cardiac [Mass/vol ume] in Serum or Plasma by High sensitivity methodOrdered By: Agustín Ang on 04-27-2025 Troponin T.cardiac High sensitivity method [Mass/Vol] 84 ng/L Critically high <14 [facility] Comment on above: Critical Result(s) C alled at: 04/27/25-06:47 by: Carrie Mosley. Results read back by same. Troponin T.cardiac High sensitivity method [Mass/Vol] 89 ng/L Critically high <14 [facility] Comment on above: Delta: 95 on 5-1924Critical Result(s) Called at: 04/27/2025-17:05 by: Carrie Mosley. Results read back by same. White blood cell (WBC) count Ordered By: Agustín Ang on 04-27-2025 WBC (Bld) [#/Vol] 4.5 10*3/uL 4.4-11.0 [facility] CNOVon 04-17-2025 CNOV Office Visit (INTMBR ) ZENAIDA EVANS ([id number]) 1935 F Date Time Provider Department 04/17/25 3:50 PM SUSANNAH CAPELLAN During your visit today, we recorded the following information about you: Temperature Pulse Blood pressure Weight 98 degrees 68/minute 132/72 58.6 kg Susannah Capellan MD 04/17/2025 5:07 PM Signed Transitional Care Management Progress Note The patients TCM visit was performed within the 7 days of discharge. Patient's Date of discharge: 04/11 Date of initial coordinator contact after discharge: 04/12 Discharge diagnosis: demand ischemia Medication review completed Yes Susannah Capellan MD Provider Documentation: In follow-up of hospitalization, [...] 04/11 showed no PE. Note created with [employer] Software: Recording using [employer] software for draft documentation of the visit was discussed with the patient/authorized in store marketing representative; all questions welcomed and answered. Patient/authorized in store marketing representative agreed to proceed HPI Zenaida Evans is a 89-year-old female with a history of HTN, hypothyroidism, and recent DVT, presenting for follow-up after a recent hospitalization for chest pressure and elevated troponin levels with her dtr AgustínEdwige Espinoza was admitted to the hospital from April [...] has not yet followed up with her technical support agent, Dr. Bautista, since her discharge, but has [...] Radiology te (more content not included)... Normal [facility] CNPNon 04-17-2025 CNPN Telephone (INTMBR) ZENAIDA EVANS ([id number]) 1935 F Date Time Provider Department 04/17/25 SUSANNAH CAPELLAN INTMBR During your visit today, we recorded the following information about you: Susannah Capellan MD 04/17/2025 5:01 PM Signed Recommend referral to cardiac rehab at [facility]. Please call [phone] Referral in my outbox. Please inform patient once they have referral. Tara Orona MA 04/17/2025 5:53 PM Signed Faxed order to [facility] at [facility] at [phone] Left detailed message on patient's voicemail. Allergies [...] constipation Date Reviewed: 04/17/2025 Reviewed by: Susannah Capellan MD - Fully Assessed Prescriptions as of [...] of br (more content not included)... Normal [facility] Basic Metabolic Profile (BMP )on 04-12-2025 BUN Normal -19 [facility] Comment on above: Result Comment: Canc elled via OM: Order cancelled - Patient discharged Performed By: #### L 500.2500 #### [facility] [address] [place], [address] BUN/CRE Normal 10-20 [facility] Comment on above: Result Comment: Canc elled via OM: Order cancelled - Patient discharged Performed By: #### L 500.2500 #### [facility] [address] [place], [address] Calcium Normal 7.6-11.0 [facility] Comment on above: Result Comment: Canc elled via OM: Order cancelled - Patient discharged Performed By: #### L 500.2500 #### [facility] [address] [place], [address] CL Normal 98-108 [facility] Comment on above: Result Comment: Canc elled via OM: Order cancelled - Patient discharged Performed By: #### L 500.2500 #### [facility] [address] [place], [address] CO2 Normal 21.0-32.0 [facility] Comment on above: Result Comment: Canc elled via OM: Order cancelled - Patient discharged Performed By: #### L 500.2500 #### [facility] [address] [place], [address] CREAT,SERUM Normal 0.70-1.20 [facility] Comment on above: Result Comment: Canc elled via OM: Order cancelled - Patient discharged Performed By: #### L 500.2500 #### [facility] [address] [place], [address] eGFR Normal >60 [facility] Comment on above: Result Comment: Canc elled via OM: Order cancelled - Patient discharged Performed By: #### L 500.2500 #### [facility] [address] [place], [address] GAP Normal 5-15 [facility] Comment on above: Result Comment: Canc elled via OM: Order cancelled - Patient discharged Performed By: #### L 500.2500 #### [facility] [address] [place], [address] GLU Normal 70-99 [facility] Comment on above: Result Comment: Canc elled via OM: Order cancelled - Patient discharged Performed By: #### L 500.2500 #### [facility] [address] [place], [address] Potassium Normal 3.3-5.1 [facility] Comment on above: Result Comment: Canc elled via OM: Order cancelled - Patient discharged Performed By: #### L 500.2500 #### [facility] [address] [place], [address] Basic Metabolic Profile (BMP) Normal 133-145 [facility] Comment on above: Result Comment: Canc elled via OM: Order cancelled - Patient discharged Performed By: #### L 500.2500 #### [facility] [address] [place], [address] CNPSharmin 04-12-2025 CNPN Telephone (INTR) ZENAIDA EVANS ([id number]) 1935 F Date Time Provider Department 04/12/25 SUSANNAH CAPELLAN During your visit today, we recorded the following information about you: Susannah Capellan MD 04/12/2025 8:06 AM Signed Patient was discharged from [facility] yesterday. Admitted 04/09-04/11 with non stemi. Please contact and assist in scheduling tcm hospital follow up within 2 wks of discharge. I can do vv on 04/23 or in person in the morning. Abena Aviles RN 04/12/2025 8:25 AM Signed Pt scheduled 04/23/25 11am. Susannah Capellan MD 04/12/2025 9:38 AM Signed Please complete documentation for tcm. Abena Aviles, RN 04/12/2025 10:40 AM Signed See tcm [...] of ma (more content not included)... Normal [facility] Anion gap in Serum or Plasma Ordered By: Adilson Melchor on 04-11-2025 Anion gap [Moles/Vol] 11 mmol/L 5-15 [facility] BUN/creatinine ratioOrdered By: Adilson Melchor on 04-11-2025 Urea nitrogen/Creatinine [Mass ratio] 20.8 mg/mg High - [facility] Basic Metabolic Profile (BMP )on 04-11-2025 BUN/CRE 20.8 RATIO High 08-06 [facility] Comment on above: Performed By: #### L 100.0100, L500.2500, L503.7505 #### [facility] [address] [place], [address] Calcium [Mass/Vol] 9.2 mg/dL Normal 7.6-11.0 [facility] Comment on above: Performed By: #### L 100.0100, L500.2500, L503.7505 #### [facility] [address] [place], [address] Chloride [Moles/Vol] 105 mmol/L Normal 98-108 [facility] Comment on above: Performed By: #### L 100.0100, L500.2500, L503.7505 #### [facility] [address] [place], [address] CO2 [Moles/Vol] 24.1 mmol/L Normal 21.0-32.0 [facility] Comment on above: Performed By: #### L 100.0100, L500.2500, L503.7505 #### [facility] [address] [place], [address] Creatinine [Mass/Vol] 1.19 mg/dL Normal 0.70-1.20 [facility] Comment on above: Performed By: #### L 100.0100, L500.2500, L503.7505 #### [facility] [address] [place], [address] ECRCL 29.71 ml/min Low 50-250 [facility] Comment on above: Performed By: #### L 100.0100, L500.2500, L503.7505 #### [facility] [address] [place], [address] GAP 11 Normal 5-15 [facility] Comment on above: Performed By: #### L 100.0100, L500.2500, L503.7505 #### [facility] [address] [place], [address] GFR/1.73 sq M.predicted among non-blacks MDRD (S/P/Bld) [Vol rate/Area] 44 mL/min/{1.73_m2} Low >60 [facility] Comment on above: Result Comment: mL/m in/1.73m2 CKD-EPI Creatinine Equation (2020) Performed By: #### L 100.0100, L500.2500, L503.7505 #### [facility] [address] [place], [address] Glucose [Mass/Vol] 84 mg/dL Normal 70-99 [facility] Comment on above: Performed By: #### L 100.0100, L500.2500, L503.7505 #### [facility] [address] [place], [address] Potassium [Moles/Vol] 4.3 mmol/L Normal 3.3-5.1 [facility] Comment on above: Performed By: #### L 100.0100, L500.2500, L503.7505 #### [facility] [address] [place], [address] Sodium [Moles/Vol] 140 mmol/L Normal 133-145 [facility] Comment on above: Performed By: #### L 100.0100, L500.2500, L503.7505 #### [facility] [address] [place], [address] Urea nitrogen [Mass/Vol] 25 mg/dL High 4-19 [facility] Comment on above: Performed By: #### L 100.0100, L500.2500, L503.7505 #### [facility] [address] [place], [address] CBC-Complete Blood Cnt No Di ffon 04-11-2025 Erythrocyte distribution width (RBC) [Ratio] 12.7 % Normal 11.6-14.6 [facility] Comment on above: Performed By: #### L 100.0100, L500.2500, L503.7505 #### [facility] [address] [place], [address] Hematocrit (Bld) [Volume fraction] 33.4 % Low 37-47 [facility] Comment on above: Performed By: #### L 100.0100, L500.2500, L503.7505 #### [facility] [address] [place], [address] Hemoglobin (Bld) [Mass/Vol] 11.3 g/dL Low 12.0-15.0 [facility] Comment on above: Performed By: #### L 100.0100, L500.2500, L503.7505 #### [facility] [address] [place], [address] MCH (RBC) [Entitic mass] 31.5 pg Normal 27.0-32.0 [facility] Comment on above: Performed By: #### L 100.0100, L500.2500, L503.7505 #### [facility] [address] [place], [address] MCHC (RBC) [Mass/Vol] 33.8 g/dL Normal 32-36 [facility] Comment on above: Performed By: #### L 100.0100, L500.2500, L503.7505 #### [facility] [address] [place], [address] MCV (RBC) [Entitic vol] 93.0 fL Normal 81-99 [facility] Comment on above: Performed By: #### L 100.0100, L500.2500, L503.7505 #### [facility] [address] [place], [address] Platelet mean volume (Bld) [Entitic vol] 9.7 fL Normal 6.2-12.0 [facility] Comment on above: Performed By: #### L 100.0100, L500.2500, L503.7505 #### [facility] [address] [place], [address] Platelets (Bld) [#/Vol] 210 10*3/uL Normal 150-450 [facility] Comment on above: Performed By: #### L 100.0100, L500.2500, L503.7505 #### [facility] [address] [place], [address] RBC (Bld) [#/Vol] 3.59 10*6/uL Low 4.2-5.4 [facility] Comment on above: Performed By: #### L 100.0100, L500.2500, L503.7505 #### [facility] [address] [place], [address] RDW SD 43.1 fl Normal 35.1-43.9 [facility] Comment on above: Performed By: #### L 100.0100, L500.2500, L503.7505 #### [facility] [address] [place], [address] WBC (Bld) [#/Vol] 4.9 10*3/uL Normal 4.4-11.0 [facility] Comment on above: Performed By: #### L 100.0100, L500.2500, L503.7505 #### [facility] [address] [place], [address] CTA Chest W/WO Contraston CTA Chest W/WO Contrast [facility] Imaging Services [address] [place] [address] CTA Chest W/WO Contrast MR#: [id number] Acct: [id number] Name: ZENAIDA EVANS Rep #: [id number] : 1935 F 89 From: Iván Garcia MD PCP: Dr. Susannah Capellan MD Status: ADM IN Study: CTA Chest W/WO Contrast Date of Exam: 04/11/25 Exam# [id number] Ordering Dr: Adilson Melchor DO PROCEDURE: CTA [...] CC: Dr. Adilson Melchor DO; Dr. Susannah Capellan MD Senior Advocate: Signed Normal [facility] Carbon dioxide, total [Moles /volume] in Central venous bloodOrdered By: Adilson Melchor on 04-11-2025 CO2 [Moles/Vol] 24.1 mmol/L 21.0-32.0 [facility] Chloride assayOrdered By: Bishop Melchor on 04-11-2025 Chloride [Moles/Vol] 105 mmol/L 98-108 [facility] Erythrocyte distribution wid th ratioOrdered By: Adilson Melchor on 04-11-2025 Erythrocyte distribution width (RBC) [Ratio] 12.7 % 11.6-14.6 [facility] Erythrocyte distribution wid th standard deviationOrdered By: Adilson Melchor on 04-11-2025 Erythrocyte distribution width (RBC) [Ratio] 43.1 fl 35.1-43.9 [facility] Glomerular filtration rate ( GFR) estimation/1.73 sq m using serum, plasma, or whole bOrdered By: Adilson Melchor on 04-11-2025 GFR/1.73 sq M.predicted among non-blacks MDRD (S/P/Bld) [Vol rate/Area] 44 mL/min/{1.73_m2} Low >60 [facility] Comment on above: mL/min/1.73m2 CKD-EP I Creatinine Equation (2020) Hematocrit Auto (Bld) [Volum e fraction]Ordered By: Adilson Melchor on 04-11-2025 Hematocrit (Bld) [Volume fraction] 33.4 % Low 37-47 [facility] Hemoglobin measurementOrdere d By: Adilson Melchor on 04-11-2025 Hemoglobin (Bld) [Mass/Vol] 11.3 g/dL Low 12.0-15.0 [facility] MCV (mean corpuscular volume ) determinationOrdered By: Adilson Melchor on 04-11-2025 MCV (RBC) [Entitic vol] 93.0 fL 81-99 [facility] Mean corpuscular hemoglobin (MCH) determinationOrdered By: Adilson Melchor on 04-11-2025 MCH (RBC) [Entitic mass] 31.5 pg 27.0-32.0 [facility] Mean corpuscular hemoglobin concentration (MCHC) determinationOrdered By: Adilson Melchor on 04-11-2025 MCHC (RBC) [Mass/Vol] 33.8 g/dL 32-36 [facility] Mean platelet volume determi nationOrdered By: Adilson Melchor on 04-11-2025 Platelet mean volume (Bld) [Entitic vol] 9.7 fL 6.2-12.0 [facility] Platelet countOrdered By: Bishop Melchor on 04-11-2025 Platelets (Bld) [#/Vol] 210 10*3/uL 150-450 [facility] Potassium measurement (mass/ volume)Ordered By: Adilson Melchor on 04-11-2025 Potassium (Unsp spec) [Mass/Vol] 4.3 mmol/L 3.3-5.1 [facility] RBC Auto (Bld) [#/Vol]Ordere d By: Adilson Melchor on 04-11-2025 RBC (Bld) [#/Vol] 3.59 10*6/uL Low 4.2-5.4 [facility] Serum creatinine measurement (mass/volume)Ordered By: Adilson Melchor on 04-11-2025 Creatinine [Mass/Vol] 1.19 mg/dL 0.70-1.20 [facility] Serum glucose measurement (m ass/volume)Ordered By: Adilson Melchor on 04-11-2025 Glucose [Mass/Vol] 84 mg/dL 70-99 [facility] Serum or plasma calcium pratima urement (mass/volume)Ordered By: Adilson Melchor on 04-11-2025 Calcium [Mass/Vol] 9.2 mg/dL 7.6-11.0 [facility] Serum or plasma urea nitroge n measurement (mass/volume)Ordered By: Adilson Melchor on 04-11-2025 Urea nitrogen [Mass/Vol] 25 mg/dL High 4-19 [facility] Sodium levelOrdered By: Serge Melchor on 04-11-2025 Sodium [Moles/Vol] 140 mmol/L 133-145 [facility] White blood cell (WBC) count Ordered By: Adilson Melchor on 04-11-2025 WBC (Bld) [#/Vol] 4.9 10*3/uL 4.4-11.0 [facility] Activated partial thrombopla stin time (aPTT) in platelet poor plasma by coagulation aOrdered By: Berhta Lazaro on 04-10-2025 aPTT Coag (PPP) [Time] 180.0 s Critically high 24.1-36. 2 [facility] Comment on above: CRITICAL VALUE SILVERMAN D TO [id number]/24/25 0453 Saurabh Singer.RESULTS READ BACK BY SAME. Bilirubin, totalOrdered By: Bertha Lazaro on 04-10-2025 Bilirubin [Mass/Vol] 0.54 mg/dL 0.00-1.30 [facility] CBC-Complete Blood Cnt No Di ffon 04-10-2025 Erythrocyte distribution width (RBC) [Ratio] 12.6 % Normal 11.6-14.6 [facility] Comment on above: Performed By: #### L 100.0100, L500.2500, L503.7509 #### [facility] [address] [place], [address] Hematocrit (Bld) [Volume fraction] 34.1 % Low 37-47 [facility] Comment on above: Performed By: #### L 100.0100, L500.2500, L503.7505 #### [facility] [address] [place], [address] Hemoglobin (Bld) [Mass/Vol] 11.6 g/dL Low 12.0-15.0 [facility] Comment on above: Performed By: #### L 100.0100, L500.2500, L503.7505 #### [facility] [address] [place], [address] MCH (RBC) [Entitic mass] 31.2 pg Normal 27.0-32.0 [facility] Comment on above: Performed By: #### L 100.0100, L500.2500, L503.7505 #### [facility] [address] [place], [address] MCHC (RBC) [Mass/Vol] 34.0 g/dL Normal 32-36 [facility] Comment on above: Performed By: #### L 100.0100, L500.2500, L503.7505 #### [facility] [address] [place], [address] MCV (RBC) [Entitic vol] 91.7 fL Normal 81-99 [facility] Comment on above: Performed By: #### L 100.0100, L500.2500, L503.7505 #### [facility] [address] [place], [address] Platelet mean volume (Bld) [Entitic vol] 9.5 fL Normal 6.2-12.0 [facility] Comment on above: Performed By: #### L 100.0100, L500.2500, L503.7505 #### [facility] [address] [place], [address] Platelets (Bld) [#/Vol] 195 10*3/uL Normal 150-450 [facility] Comment on above: Performed By: #### L 100.0100, L500.2500, L503.7505 #### [facility] [address] [place], [address] RBC (Bld) [#/Vol] 3.72 10*6/uL Low 4.2-5.4 [facility] Comment on above: Performed By: #### L 100.0100, L500.2500, L503.7505 #### [facility] [address] [place], [address] RDW SD 42.3 fl Normal 35.1-43.9 [facility] Comment on above: Performed By: #### L 100.0100, L500.2500, L503.7505 #### [facility] [address] [place], [address] WBC (Bld) [#/Vol] 5.6 10*3/uL Normal 4.4-11.0 [facility] Comment on above: Performed By: #### L 100.0100, L500.2500, L503.7505 #### [facility] [address] [place], [address] [facility] Tele[facility] ([facility]) ZENAIDA EVANS ([id number]) 1935 F Date Time Provider Department 04/10/25 [facility]ISTA [facility] During your visit today, we recorded the following information about you: Joann Honeycutt 04/10/2025 8:20 AM Addendum April 10, 2025 Name: Zenaida Evans Patient Contact Number: [phone] (home) [phone] (cell) Date of last office visit: 04/03/2025 Reason For Call: Chest pain/angina - Patient was taken to the ED overnight to [facility]. They believe she has had a heart attack based on the elevated enzymes. They want to do a cardiac cath today, but the patient wants to see if Dr. Bautista thinks she should be moved to [facility]. Zenaida Evans can be reached at [phone]. Physician: Paul Bautista MD Patient was informed that non-urgent calls may be returned within the next three business days. Yes Joann Honeycutt [facility] STAFF PHYSICIAN NOTE OF PERSONAL INVOLVEMENT IN CARE Discussed with patient. Went into ER with chest pain and nausea. HS trop to 95 and then decreased to 86. Discussed reasonable to ask for transfer to [facility] if bed can be available as soon [...] STATES [E89.41] (more content not included)... Normal [facility] Calculated very low density lipoprotein (VLDL) cholesterol measurementOrdered By: Bertha Lazaro on 04-10-2025 Calculated very low density lipoprotein (VLDL) cholesterol measurement 11 mg/dL 5-40 [facility] Comprehensive Metabolic Prof ilon 04-10-2025 Albumin [Mass/Vol] 3.8 g/dL Normal 3.4-4.8 [facility] Comment on above: Performed By: #### L 100.0100, L500.2500, L503.7505 #### [facility] [address] [place], [place], [address] Albumin/Globulin [Mass ratio] 1.6 {ratio} Normal 0.9-2.4 [facility] Comment on above: Performed By: #### L 100.0100, L500.2500, L503.7505 #### [facility] [address] [place], [address] ALK PHOS 69 U/L Normal 35-104 [facility] Comment on above: Performed By: #### L 100.0100, L500.2500, L503.7505 #### [facility] [address] [place], [address] ALT [Catalytic activity/Vol] 22 U/L Normal <=34 [facility] Comment on above: Performed By: #### L 100.0100, L500.2500, L503.7505 #### [facility] [address] [place], [address] AST [Catalytic activity/Vol] 19 U/L Normal <=31 [facility] Comment on above: Performed By: #### L 100.0100, L500.2500, L503.7505 #### [facility] [address] [place], [address] Bilirubin [Mass/Vol] 0.54 mg/dL Normal 0.00-1.30 [facility] Comment on above: Performed By: #### L 100.0100, L500.2500, L503.7505 #### [facility] [address] [place], [address] BUN/CRE 20.9 RATIO High 10-20 [facility] Comment on above: Performed By: #### L 100.0100, L500.2500, L503.7505 #### [facility] [address] [place], [address] Calcium [Mass/Vol] 9.4 mg/dL Normal 7.6-11.0 [facility] Comment on above: Performed By: #### L 100.0100, L500.2500, L503.7505 #### [facility] [address] [place], [address] Chloride [Moles/Vol] 103 mmol/L Normal 98-108 [facility] Comment on above: Performed By: #### L 100.0100, L500.2500, L503.7505 #### [facility] [address] [place], [address] CO2 [Moles/Vol] 26.8 mmol/L Normal 21.0-32.0 [facility] Comment on above: Performed By: #### L 100.0100, L500.2500, L503.7505 #### [facility] [address] [place], [address] Creatinine [Mass/Vol] 1.31 mg/dL High 0.70-1.20 [facility] Comment on above: Performed By: #### L 100.0100, L500.2500, L503.7505 #### [facility] [address] [place], [address] ECRCL 26.99 ml/min Low 50-250 [facility] Comment on above: Performed By: #### L 100.0100, L500.2500, L503.7505 #### [facility] [address] [place], [address] GAP 10 Normal 5-15 [facility] Comment on above: Performed By: #### L 100.0100, L500.2500, L503.7505 #### [facility] [address] [place], [address] GFR/1.73 sq M.predicted among non-blacks MDRD (S/P/Bld) [Vol rate/Area] 39 mL/min/{1.73_m2} Low >60 [facility] Comment on above: Result Comment: mL/m in/1.73m2 CKD-EPI Creatinine Equation (2020) Performed By: #### L 100.0100, L500.2500, L503.7505 #### [facility] [address] [place], [address] Globulin (S) [Mass/Vol] 2.5 g/dL Normal 2.2-4.2 [facility] Comment on above: Performed By: #### L 100.0100, L500.2500, L503.7505 #### [facility] [address] [place], [address] Glucose [Mass/Vol] 106 mg/dL High 70-99 [facility] Comment on above: Performed By: #### L 100.0100, L500.2500, L503.7505 #### [facility] [address] [place], [address] Potassium [Moles/Vol] 4.2 mmol/L Normal 3.3-5.1 [facility] Comment on above: Performed By: #### L 100.0100, L500.2500, L503.7505 #### [facility] [address] [place], [address] Sodium [Moles/Vol] 139 mmol/L Normal 133-145 [facility] Comment on above: Performed By: #### L 100.0100, L500.2500, L503.7505 #### [facility] [address] [place], [address] T PROT 6.3 g/dL Normal 5.9-8.4 [facility] Comment on above: Performed By: #### L 100.0100, L500.2500, L503.7505 #### [facility] [address] [place], [address] Urea nitrogen [Mass/Vol] 27 mg/dL High 4-19 [facility] Comment on above: Performed By: #### L 100.0100, L500.2500, L503.7505 #### [facility] [address] [place], [address] Consultation - Cardiologyon 04-10-2025 Consultation - Cardiology [facility] Medical Records Department [address] [place] [address] Consultation - Cardiology 04/10/25 0728 MR#: [id number] Acct: [id number] Name: ZENAIDA EVANS Rep #: [id number] : 1935 89 From: Vasile Reyes MD PCP: Dr. Susannah Capellan MD Status:ADM IN Location: [place] [address] Assessment Plan Assessment/Plan (1) NSTEMI (non-ST elevated myocardial infarction): PLAN: Patient presents with chest discomfort and a non-ST elevation myocardial infarction coupled with nausea. My recommendation at this time would be to consider a left heart catheterization. Risk benefits alternatives have and explained to her and she wants to talk to her technical support agent in [place] before proceeding. In the meantime she will [...] medical therapy. Patient can follow-up with her technical support agent in [place]. HPI Consult Data Date of Consult: 04/10/25 HPI Narrative HPI Narrative: ZENAIDA EVANS, is a 89 F who presents to the emergency room with nausea and abdominal pain as well as chest discomfort. She had previously seen her technical support agent in [place] about a week ago with similar findings [...] evaluation and management. She is currently pain-free. [facility] Medical History CHF (congestive heart [...] dyspnea Re (more content not included)... Normal [facility] D-Dimer Quantitative (DVT/PE )on 04-10-2025 D-DIMER QUANT 1.00 FEU/ug/m Invalid Interpretation Code 0.27-0.49 [facility] Comment on above: Result Comment: D-Di cindy ELEVATED (>0.49): Additional studies and clinical assessments are indicated to conclude diagnosis of: Deep Vein Thrombosis (DVT) or Pulmonary Embolism (PE) CRITICAL VALUE CALLED TO JILLIAN 04/10/25 0506 Saurabh Singer. RESULTS READ BACK BY SAME. Performed By: #### L 100.0100, L500.2500, L503.7505 #### [facility] [address] [place], [address] Discharge Instructionon 03-19 Discharge Instruction [facility] Medical Records Department [address] [place] [address] Instructions for Home/Discharge Instructions 04/10/25 1439 MR#: [id number] Acct: [id number] Name: ZENAIDA EVANS Rep #: [id number] : 1935 89 From: Adilson Melchor DO PCP: Dr. Susannah Capellan MD Status:ADM IN Discharge Instructions DC O2, CPAP, BIPAP needs Home O2 Discharge instructions: No Follow Up Care Test Results: Test results from this visit will be discussed in further detail at your follow-up appointment, if applicable. Discharge Plan Admission Admit Date/Time: 04/09/25 23:42 Primary Reason for Your Visit: Chest pain Attending Provider: Adilson Melchor Primary Care Provider: Susannah Capellan Consulting Providers: Vasile Reyes; Bertha Godoy Instructions Additional Instructions / Restrictions: Continue home medications as normal. Follow-up with your [facility] technical support agent in the near future. Discharge Orders/Prescriptions Prescriptions: [...] sublingual PRN Referrals / Follow Up: Susannah Capellan MD [Primary Care Provider] - Disposition Disposition (needs filled in before D/C Order can be placed): Home, Self Care 04/10/25 1500 Adilson Melchor DO CC: Dr. Vasile Reyes MD; Dr. Bertha Godoy DO; Dr. Susannah Capellan MD Signed Normal [facility] Echo Completeon 04-10-2025 Echo Complete [facility] Cardi[facility] Services [address] [place] [address] Echo Complete 04/10/25 0938 MR#: [id number] Acct: [id number] Name: ZENAIDA EVANS Rep #: [id number] : 1935 89 From: Vasile Reyes MD Attending Dr: Dr. Adilson Melchor DO Status : ADM IN Ordering Dr: Bertha Godoy DO Date: 04/10/25 Location: [facility] Sex: F C Admitted: 04/09/25 Reason For [...] strain = -18.9 % (normal). Ordering Physician: Bertha Godoy Performed By: Alysha Conner RDCS 04/10/25 1101 Date Vasile Reyes MD CC: Dr. Adilsno Melchor DO; Dr. Bertha Godoy DO; Dr. Susannah Capellan MD Date Dictated: 04/10/25937 Date Transcribed: 04/10/25 1100 Senior Advocate: Signed Normal [facility] Echocardiogram study reportO rdered By: Vasile Reyes on 04-10-2025 Study report [facility] Cardiovascular Services [address] [place] [address] Echo Complete 04/10/25937 MR#: [id number] Acct: [id number] Name: ZENAIDA EVANS Rep #:[id number] : 1935 89 From: Vasile Forte Attending Dr: Dr. Adilson Melchor DO Status: ADM IN Ordering Dr: Bertha Godoy DO Date: 04/10/25 Location: [facility] Sex: F C Admitted: 04/09/25 Reason For [...] longitudinal strain = -18.9% (normal). Ordering Physician: Bertha Godoy Performed By: Alysha Conner RDCS 04/10/25 1101 Date _ Vasile Reyes MD CC: Dr. Adilson Melchor DO; Dr. Bertha Godoy DO; Dr. Susannah Capellan MD ~ Date Dictated: 04/10/25 0938 Date Transcribed: 04/10/25 1100 Senior Advocate: Signed [facility] Work Phone: Electrocardiogram reportOrde red By: Vasile Reyes on 04-10-2025 EKG study [facility] Cardiovascular Services [address] [place] [address] 12 Lead EKG 04/09/25 1858 MR#: [id number] Acct: [id number] Name: ZENAIDA EVANS Rep #:[id number] : 1935 89 From: Vasile Reyes MD Attending Dr: Dr. Adilson Melchor DO Status: ADM IN Ordering Dr: Serge Mcmullen MD Date: Location: [facility] Sex: F C Admitted: 04/09/25 Test Reason [...] Borderline ECG Confirmed by VASILE REYES MD ([id number]), videotape editor NICOLAS HUERTAS ([id number]) on 04/10/2025 11:26:13 AM Referred By: ES Confirmed By: VASILE REYES MD 04/10/25 1126 Date _ Vasile Reyes MD CC: Dr. Serge Mcmullen MD; Dr. Adilson Melchor DO; Dr. Susannah Capellan MD ~ Signed [facility] Work Phone: EKG study [facility] Cardiovascular Services [address] [place] [address] 12 Lead EKG 04/10/25 0026 MR#: [id number] Acct: [id number] Name: ZENAIDA EVANS Rep #:[id number] : 1935 89 From: Vasile Reyes MD Attending Dr: Dr. Adilson Melchor DO Status: ADM IN Ordering Dr: Bertha Godoy DO Date: 04/09/25 Location: [facility] Sex: F C Admitted: 04/09/25 Test Reason [...] COMPARISON REQUIRED DATA IS UNCONFIRMED Confirmed by AMY SERRANO, VASILE ([id number]), videotape editor NICOLAS HUERTAS ([id number]) on 04/10/2025 11:00:41 AM Referred By: Confirmed By: VASILE REYES MD 04/10/25 1100 Date _ Vasile Reyes MD CC: Dr. Adilson Melchor DO; Dr. Bertha Godoy DO; Dr. Susannah Capellan MD ~ Signed [facility] Work Phone: [phone] 04-10-2025 Trop T High Sen 88 ng/L Invalid Interpretation Code <=14 [facility] Comment on above: Result Comment: Crit ical Result(s) Called at:0020 by: HOLLY JUAREZ TO RAHEL GONZALEZ??Results read back by same. Performed By: #### L 503.7505 #### [facility] Laboratory [address] [place], [address] LDL calc ser/plasOrdered By: Bertha Lazaro on 04-10-2025 Cholesterol in LDL [Mass/Vol] 96 mg/dL [facility] Comment on above: Nblxgysuke=995-203 m g/dL & Higher Moyr=799 mg/dL or greater Laboratory - Chemistry and C hemistry - challengeOrdered By: Bertha Lazaro on 04-10-2025 AST [Catalytic activity/Vol] 19 U/L <32 [facility] Lipid Profileon 04-10-2025 CHOL:HDL 2.74 Normal [facility] Comment on above: Performed By: #### L 100.0100, L500.2500, L503.7505 #### [facility] [address] [place], [address] Cholesterol [Mass/Vol] 169 mg/dL Normal <=200 [facility] Comment on above: Result Comment: Chol esterol level, Desirable <200 mg/dL Borderline high cholesterol 200-239 mg/dL High cholesterol >=240 mg/dL Recommendations of the NCEP Adult Treatment Panel for the following risk-cutoff thresholds for the [place] Prydein[place] population. Performed By: #### L 100.0100, L500.2500, L503.7505 #### [facility] [address] [place], [address] Cholesterol in HDL [Mass/Vol] 62 mg/dL Normal [facility] Comment on above: Result Comment: Makayla onal Cholesterol Education Program (NCEP) guidelines: <40 mg/dL: Low HDL-cholesterol (major risk factor for CHD) >= 60 mg/dL: High HDL-cholesterol (negative risk factor for CHD) HDL-cholesterol is affected by a number of factors, e.g. smoking, exercise, hormones, sex and age. Performed By: #### L 100.0100, L500.2500, L503.7505 #### [facility] [address] [place], [address] Cholesterol in LDL [Mass/Vol] 96 mg/dL Normal [facility] Comment on above: Result Comment: Bord etkxll=853-887 mg/dL Higher Wwoj=389 mg/dL or greater Performed By: #### L 100.0100, L500.2500, L503.7505 #### [facility] [address] [place], [address] Cholesterol in VLDL [Mass/Vol] 11 mg/dL Normal 5-40 [facility] Comment on above: Performed By: #### L 100.0100, L500.2500, L503.7505 #### [facility] [address] [place], [address] Triglyceride [Mass/Vol] 54 mg/dL Normal [facility] Comment on above: Result Comment: The drugs N-Acetylcysteine and Metamizole may falsely depress this assay. Normal range: <150 mg/dL Borderline High: 150-199 mg/dL High: 200-499 mg/dL Very High: >500 mg/dL Performed By: #### L 100.0100, L500.2500, L503.7505 #### [facility] [address] [place], [address] Partial Thromboplast Timeon 04-10-2025 aPTT Coag (Bld) [Time] 180.0 s Invalid Interpretation Code 24.1-36.2 [facility] Comment on above: Result Comment: CRIT ICAL VALUE CALLED TO ABDOUL 04/10/25 0453 Saurabh Singer. RESULTS READ BACK BY SAME. Performed By: #### L 100.0100, L500.2500, L503.7505 #### [facility] [address] [place], [address] Screening total cholesterol/ high density lipoprotein (HDL) cholesterol ratioOrdered By: Bertha Lazaro on 04-10-2025 Cholesterol.total/Chol esterol in HDL [Mass ratio] 2.74 {ratio} [facility] Serum globulin measurementOr dered By: Bertha Lazaro on 04-10-2025 Globulin (S) [Mass/Vol] 2.5 g/dL 2.2-4.2 [facility] Serum or plasma alanine brown otransferase (ALT) measurementOrdered By: Bertha Lazaro on 04-10-2025 ALT [Catalytic activity/Vol] 22 U/L <35 [facility] Serum or plasma albumin pratima urement (mass/volume)Ordered By: Bertha Lazaro on 04-10-2025 Albumin [Mass/Vol] 3.8 g/dL 3.4-4.8 [facility] Serum or plasma albumin/glob ulin mass ratioOrdered By: Bertha Lazaro on 04-10-2025 Albumin/Globulin [Mass ratio] 1.6 {ratio} 0.9-2.4 [facility] Serum or plasma alkaline yoli sphatase measurementOrdered By: eBrtha Lazaro on 04-10-2025 ALP [Catalytic activity/Vol] 69 U/L 35-104 [facility] Serum or plasma cholesterol in HDL measurement (mass/volume)Ordered By: Bertha Lazaro on 04-10-2025 Cholesterol in HDL [Mass/Vol] 62 mg/dL >40 [facility] Comment on above: National Cholesterol Education Program (NCEP) guidelines:<40 mg/dL: Low HDL-cholesterol (major risk factor for CHD)>= 60 mg/dL: High HDL-cholesterol (negative risk factor for CHD)HDL-cholesterol is affected by a number of factors, e.g. smoking, exercise, hormones, sex and age. Serum or plasma cholesterol measurement (mass/volume)Ordered By: Bertha Lazaro on 04-10-2025 Cholesterol [Mass/Vol] 169 mg/dL <201 [facility] Comment on above: Cholesterol level, D esirable <200 mg/dLBorderline high cholesterol 200-239 mg/dLHigh cholesterol >=240 mg/dLRecommendations of the NCEP Adult Treatment Panel for the following risk-cutoff thresholds for the [place]de[place] population. TSH DL <= 0.005 mIU/L QnOrde red By: Bertha Lazaro on 04-10-2025 TSH Qn 2.150 uIU/mL 0.300-4.20 0 [facility] Thyroid Stim Hormone (TSH)on 04-10-2025 TSH 2.150 uIU/mL Normal 0.300-4.20 0 [facility] Comment on above: Performed By: #### L 100.0100, L500.2500, L503.7505 #### [facility] Laboratory [facility] [place], [address] Total proteinOrdered By: Salazar Kumarenzo on 04-10-2025 Protein [Mass/Vol] 6.3 g/dL 5.9-8.4 [facility] Triglycerides measurementOrd ered By: Bertha Tejas on 04-10-2025 Triglyceride [Mass/Vol] 54 mg/dL <199 [facility] Comment on above: The drugs N-Acetylcy steine and Metamizole may falsely depress this assay. Normal range: <150 mg/dLBorderline High: 150-199 mg/dLHigh: 200-499 mg/dLVery High: >500 mg/dL Venous Duplex US - Alberto Extre mon 04-10-2025 Venous Duplex US - Alberto Extrem [facility] Cardiovascular Services [address] [place] [address] Venous Duplex US - Alberto Extrem 04/10/25 1119 MR#: [id number] Acct: [id number] Name: ZENAIDA EVANS Rep #: [id number] : 1935 89 From: Richard Angelo MD Attending Dr: Dr. Adilson Melchor DO Status : ADM IN Ordering Dr: Bertha Godoy DO Date: 04/10/25 Location: U Sex: [...] fossa measuring 1.18cm x 2.28cm Ordering Physician: Bertha Godoy Referring Physician: Susannah Capellan Performed By: Treva Singer, JOSE DANIEL, RVT 04/10/251651 Date Richard Angelo MD CC: Dr. Adilson Melchor DO; Dr. Bertha Godoy DO; Dr. Susannah Capellan MD Date Dictated: 04/10/251118 Date Transcribed: 04/10/251651 Senior Advocate: Signed Normal [facility] Venous duplex ultrasound rep ortOrdered By: Richard Angelo on 04-10-2025 US Vein [facility] Cardiovascular Services [address] [place] [address] Venous Duplex US - Alberto Extrem 04/10/25 1119 MR#: [id number] Acct: [id number] Name: ZENAIDA EVANS Rep #:[id number] : 1935 89 From: Richard Forte Attending Dr: Dr. Adilson Melchor DO Status: ADM IN Ordering Dr: Bertha Godoy DO Date: 04/10/25 Location: [facility] Sex: F C Admitted: 04/09/25 Reason For [...] fossa measuring 1.18cm x 2.28cm Ordering Physician: Bertha Godoy Referring Physician: Susannah Capellan Performed By: Treva Singer, JOSE DANIEL, RVT 04/10/25 1652 Date _ Richard Angelo MD CC: Dr. Adilson Melchor DO; Dr. Bertha Godoy DO; Dr. Susannah Capellan MD ~ Date Dictated: 04/10/25 1119 Date Transcribed: 04/10/25 1652 Senior Advocate: Signed [facility] Work Phone: 12 Lead EKGon 04-09-2025 12 Lead EKG [facility] Cardiovascular Services [address] [place] [address] 12 Lead EKG 04/10/25 0026 MR#: [id number] Acct: [id number] Name: ZENAIDA EVANS Rep #: [id number] : 1935 89 From: Vasile Reyes MD Attending Dr: Dr. Adilson Melchor DO Status : ADM IN Ordering Dr: Bertha Godoy DO Date: 04/09/25 Location: [facility] Sex: F C Admitted: 04/09/25 Test Reason [...] COMPARISON REQUIRED DATA IS UNCONFIRMED Confirmed by AMY SERRANO, VASILE ([id number]), videotape editor NICOLAS HUERTAS ([id number]) on 04/10/2025 11:00:41 AM Referred By: Confirmed By: VASILE REYES MD 04/10/25 1100 Date Vasile Reyes MD CC: Dr. Adilson Melchor DO; Dr. Bertha Godoy DO; Dr. Susannah Capellan MD Signed Normal [facility] 12 Lead EKG [facility] Cardiovascular Services [address] [facility] [place] [address] 12 Lead EKG 04/09/25 1858 MR#: [id number] Acct: [id number] Name: ZENAIDA EVANS Rep #: [id number] : 1935 89 From: Vasile Reyes MD Attending Dr: Dr. Adilson Melchor DO Status : ADM IN Ordering Dr: Serge Mcmullen MD Date: 04/09/25 Location: [facility] Sex: F C Admitted: 04/09/25 Test Reason : CP Blood Pressure : */* mmHG Vent. Rate : 64 BPM Atrial Rate : 64 BPM P-R Int : 166 ms QRS Dur : 74 ms QT Int : 408 ms P-R-T Axes : 74 54 65 degrees QTcB Int : 420 ms Normal sinus rhythm Possible Left atrial enlargement Borderline ECG Confirmed by VAISLE REYES MD ([id number]), videotape editor NICOLAS HUERTAS ([id number]) on 04/10/2025 11:26:13 AM Referred By: ES Confirmed By: VASILE REYES MD 04/10/25 1126 Date Vasile Reyes MD CC: Dr. Serge Mcmullen MD; Dr. Adilson Melchor DO; Dr. Susannah Capellan MD Signed Normal [facility] Absolute lymphocyte countOrd ered By: ED PROVIDER on 04-09-2025 Lymphocytes Auto (Unsp spec) [#/Vol] 1.84 10*3/uL 0.83-4.51 [facility] Absolute neutrophil countOrd ered By: ED PROVIDER on 04-09-2025 Neutrophils (Bld) [#/Vol] 2.8 10*3/uL 2.0-7.7 [facility] Activated partial thrombopla stin time (aPTT) in platelet poor plasma by coagulation aOrdered By: Serge Mcmullen on 04-09-2025 aPTT Coag (PPP) [Time] 28.4 s 24.1-36.2 [facility] Anion gap in Serum or Plasma Ordered By: ED PROVIDER on 04-09-2025 Anion gap [Moles/Vol] 12 mmol/L 5-15 [facility] Automated lymphocyte count a s percentage of total leukocytesOrdered By: ED PROVIDER on 04-09-2025 Lymphocytes/100 WBC Auto (Unsp spec) 32.1 % 19-41 [facility] BUN/creatinine ratioOrdered By: ED PROVIDER on 04-09-2025 Urea nitrogen/Creatinine [Mass ratio] 20.3 mg/mg High - [facility] Basic Metabolic Profile (BMP )on 04-09-2025 BUN/CRE 20.3 RATIO High - [facility] Comment on above: Performed By: #### L 100.0100, L500.2500, L503.7505 #### [facility] Laboratory [address] [place], [address] Calcium [Mass/Vol] 9.5 mg/dL Normal 7.6-11.0 [facility] Comment on above: Performed By: #### L 100.0100, L500.2500, L503.7505 #### [facility] Laboratory [address] [place], [address] Chloride [Moles/Vol] 101 mmol/L Normal 98-108 [facility] Comment on above: Performed By: #### L 100.0100, L500.2500, L503.7505 #### [facility] Laboratory [address] [place], [address] CO2 [Moles/Vol] 25.2 mmol/L Normal 21.0-32.0 [facility] Comment on above: Performed By: #### L 100.0100, L500.2500, L503.7505 #### [facility] Laboratory [address] [place], [address] Creatinine [Mass/Vol] 1.54 mg/dL High 0.70-1.20 [facility] Comment on above: Performed By: #### L 100.0100, L500.2500, L503.7505 #### [facility] Laboratory [address] [place], [address] ECRCL 23.40 ml/min Low 50-250 [facility] Comment on above: Performed By: #### L 100.0100, L500.2500, L503.7505 #### [facility] Laboratory [address] [place], [address] GAP 12 Normal 5-15 [facility] Comment on above: Performed By: #### L 100.0100, L500.2500, L503.7505 #### [facility] Laboratory [address] [place], [address] GFR/1.73 sq M.predicted among non-blacks MDRD (S/P/Bld) [Vol rate/Area] 32 mL/min/{1.73_m2} Low >60 [facility] Comment on above: Result Comment: mL/m in/1.73m2 CKD-EPI Creatinine Equation (2020) Performed By: #### L 100.0100, L500.2500, L503.7505 #### [facility] Laboratory [address] [place], [address] Glucose [Mass/Vol] 98 mg/dL Normal 70-99 [facility] Comment on above: Performed By: #### L 100.0100, L500.2500, L503.7505 #### [facility] Laboratory [address] [place], [address] Potassium [Moles/Vol] 4.7 mmol/L Normal 3.3-5.1 [facility] Comment on above: Performed By: #### L 100.0100, L500.2500, L503.7505 #### [facility] Laboratory [address] [place], [address] Sodium [Moles/Vol] 138 mmol/L Normal 133-145 [facility] Comment on above: Performed By: #### L 100.0100, L500.2500, L503.7505 #### [facility] Laboratory [address] [place], [address] Urea nitrogen [Mass/Vol] 31 mg/dL High 4-19 [facility] Comment on above: Performed By: #### L 100.0100, L500.2500, L503.7505 #### [facility] Laboratory [address] [place], [address] Basophil percentageOrdered B y: ED PROVIDER on 04-09-2025 Basophils/100 WBC (Bld) 0.5 % 0-1 [facility] CBC W/Diff, Automatedon 03-19 Absolute Lymph 1.84 X10 3/uL Normal 0.83-4.51 [facility] Comment on above: Performed By: #### L 100.0100, L500.2500, L503.7505 #### [facility] Laboratory [address] [place], [address] Absolute Neut 2.8 X10 3/uL Normal 2.0-7.7 [facility] Comment on above: Performed By: #### L 100.0100, L500.2500, L503.7505 #### [facility] Laboratory [address] [place], [address] Basophils/100 WBC (Bld) 0.5 % Normal 0-1 [facility] Comment on above: Performed By: #### L 100.0100, L500.2500, L503.7505 #### [facility] Laboratory [address] [place], [address] Eosinophils/100 WBC (Bld) 5.2 % High 0-5 [facility] Comment on above: Performed By: #### L 100.0100, L500.2500, L503.7505 #### [facility] Laboratory [address] [place], [address] Erythrocyte distribution width (RBC) [Ratio] 12.9 % Normal 11.6-14.6 [facility] Comment on above: Performed By: #### L 100.0100, L500.2500, L503.7505 #### [facility] [address] [place], [address] Hematocrit (Bld) [Volume fraction] 37.2 % Normal 37-47 [facility] Comment on above: Performed By: #### L 100.0100, L500.2500, L503.7505 #### [facility] Laboratory [address] [place], [address] Hemoglobin (Bld) [Mass/Vol] 12.4 g/dL Normal 12.0-15.0 [facility] Comment on above: Performed By: #### L 100.0100, L500.2500, L503.7505 #### [facility] [address] [place], [address] IG% 0.200 Normal 0.0-0.9 [facility] Comment on above: Result Comment: IG% - Immature Granulocytes (promyelocytes, myelocytes and metamyelocytes) > 1% indicates that a LEFT SHIFT is Present. Performed By: #### L 100.0100, L500.2500, L503.7505 #### [facility] [address] [place], [address] Lymphocytes/100 WBC (Bld) 32.1 % Normal 19-41 [facility] Comment on above: Performed By: #### L 100.0100, L500.2500, L503.7505 #### [facility] [address] [place], [address] MCH (RBC) [Entitic mass] 31.4 pg Normal 27.0-32.0 [facility] Comment on above: Performed By: #### L 100.0100, L500.2500, L503.7505 #### [facility] Laboratory [address] [place], [address] MCHC (RBC) [Mass/Vol] 33.3 g/dL Normal 32-36 [facility] Comment on above: Performed By: #### L 100.0100, L500.2500, L503.7505 #### [facility] Laboratory [address] [place], [address] MCV (RBC) [Entitic vol] 94.2 fL Normal 81-99 [facility] Comment on above: Performed By: #### L 100.0100, L500.2500, L503.7505 #### [facility] Laboratory [address] [place], [address] Monocytes/100 WBC (Bld) 12.7 % High 0-10 [facility] Comment on above: Performed By: #### L 100.0100, L500.2500, L503.7505 #### [facility] Laboratory [address] [place], [address] Neutrophils/100 WBC (Bld) 49.3 % Normal 47-70 [facility] Comment on above: Performed By: #### L 100.0100, L500.2500, L503.7505 #### [facility] [address] [place], [address] Nucleated RBC (Bld) [#/Vol] 0 10*3/uL Normal 0-5 [facility] Comment on above: Performed By: #### L 100.0100, L500.2500, L503.7505 #### [facility] Laboratory [address] [place], [address] Platelet mean volume (Bld) [Entitic vol] 9.7 fL Normal 6.2-12.0 [facility] Comment on above: Performed By: #### L 100.0100, L500.2500, L503.7505 #### [facility] [address] [place], [address] Platelets (Bld) [#/Vol] 216 10*3/uL Normal 150-450 [facility] Comment on above: Performed By: #### L 100.0100, L500.2500, L503.7505 #### [facility] Laboratory [address] [place], [address] RBC (Bld) [#/Vol] 3.95 10*6/uL Low 4.2-5.4 [facility] Comment on above: Performed By: #### L 100.0100, L500.2500, L503.7505 #### [facility] Laboratory [address] [place], [address] RDW SD 44.4 fl High 35.1-43.9 [facility] Comment on above: Performed By: #### L 100.0100, L500.2500, L503.7505 #### [facility] Laboratory [address] [place], [address] WBC (Bld) [#/Vol] 5.7 10*3/uL Normal 4.4-11.0 [facility] Comment on above: Performed By: #### L 100.0100, L500.2500, L503.7505 #### [facility] Laboratory [address] [place], [address] Carbon dioxide, total [Moles /volume] in Central venous bloodOrdered By: ED PROVIDER on 04-09-2025 CO2 [Moles/Vol] 25.2 mmol/L 21.0-32.0 [facility] Chest 1 View (Portable)on Chest 1 View (Portable) [facility] Imaging Services [address] [place] [address] Chest 1 View (Portable) MR#: [id number] Acct: [id number] Name: ZENAIDA EVANS Rep #: [id number] : 1935 F 89 From: Josue Scott MD PCP: Dr. Susannah Capellan MD Status: [facility] ER Study: Chest 1 View (Portable) Date of Exam: 04/09/25 Exam# [id number] Ordering Dr: Provider,Ed P. PROCEDURE: CHEST 1 VIEW (PORTABLE) 04/09/2025 [...] without an acute cardiopulmonary abnormality. Reading Location: [id number] CC: Dr. Susannah Capellan MD; ED PHYSICIAN PROVIDER Senior Advocate: Signed Normal [facility] Chloride assayOrdered By: ED PROVIDER on 04-09-2025 Chloride [Moles/Vol] 101 mmol/L 98-108 [facility] Emergency Department Summary on 04-09-2025 Emergency Department Summary [facility] Medical Records Department [address] [place] [address] Emergency Department Summary 04/09/25 MR#: [id number] Acct: [id number] Name: ZENAIDA EVANS Rep #: [id number] : 1935 89 From: Serge Mcmullen MD PCP: Dr. Susannah Capellan MD Status:REG ER Location: ED HPI History [...] no shortness of breath. She sees a technical support agent at the [facility]. While she does not take furosemide daily, she is on other diuretics including Farxiga. No increased swelling of her legs. No exacerbating or alleviating factors. There is no predictability to chest pressure nausea. [facility] Medical History CHF (congestive heart failure) [...] capsule 5 mg PO QHS 10/16/19 Unknown Histo ry valsartan 160 mg tablet [...] work init (more content not included)... Normal [facility] Eosinophil percentageOrdered By: ED PROVIDER on 04-09-2025 Eosinophils/100 WBC (Bld) 5.2 % High 0-5 [facility] Erythrocyte distribution wid th ratioOrdered By: ED PROVIDER on 04-09-2025 Erythrocyte distribution width (RBC) [Ratio] 12.9 % 11.6-14.6 [facility] Erythrocyte distribution wid th standard deviationOrdered By: ED PROVIDER on 04-09-2025 Erythrocyte distribution width (RBC) [Ratio] 44.4 fl High 35.1-43.9 [facility] Glomerular filtration rate ( GFR) estimation/1.73 sq m using serum, plasma, or whole bOrdered By: ED PROVIDER on 04-09-2025 GFR/1.73 sq M.predicted among non-blacks MDRD (S/P/Bld) [Vol rate/Area] 32 mL/min/{1.73_m2} Low >60 [facility] Comment on above: mL/min/1.73m2 CKD-EP I Creatinine Equation (2020) H AND P Exam - [facility] 04-09-2025 H&P Exam - Hospitalist [facility] Medical Records Department [address] [place] [address] H P Exam - Hospitalist 04/09/25 9865 MR#: [id number] Acct: [id number] Name: ZENAIDA EVANS Rep #: [id number] : 1935 89 From: Bertha Godoy DO PCP: Dr. Susannah Capellan MD Status:ADM IN Location: [place] [id number] HPI - General General Date of Admission: 04/09/25 Date of Service: 04/09/25 Chief Complaint: Chest Pain. HPI Narrative ZENAIDA EVANS, is a 89 F with past medical history of essential hypertension; on valsartan, labetalol, amlodipine, indapamide, hydrochlorothiazide and furosemide, hypothyroidism; on levothyroxine, former tobacco abuse, history of chronic diastolic CHF; LVEF 65% and stage I diastolic dysfunction (2019) followed by technical support agent at [facility], neuropathy; on gabapentin, history of microscopic colitis, history of Right breast cancer; s/p lumpectomy with radiation and OA who presents to [facility] ER complaining of chest pain. Ms. Evans reports her symptoms began more than a month ago but then 5 days ago they became very intense with chest pressure that was [id number], substernal and nonradiating with pain that would [...] abnormality with the ER physician then contacting technical support agent on-call who recommended IV heparin and patient be admitted to the hospitalist service to the PCU for ongoing care for stay that is expected to extend beyond 2 midnights. [facility] Medical History CHF (congestive heart [...] Pressure M (more content not included)... Normal [facility] Hematocrit Auto (Bld) [Volum e fraction]Ordered By: ED PROVIDER on 04-09-2025 Hematocrit (Bld) [Volume fraction] 37.2 % 37-47 [facility] Hemoglobin measurementOrdere d By: ED PROVIDER on 04-09-2025 Hemoglobin (Bld) [Mass/Vol] 12.4 g/dL 12.0-15.0 [facility] Immature granulocytes/100 WB C Auto (Bld)Ordered By: ED PROVIDER on 04-09-2025 Immature granulocytes/100 WBC (Bld) 0.200 % 0.0-0.9 [facility] Comment on above: IG% - Immature Granu locytes (promyelocytes, myelocytes and metamyelocytes) > 1% indicates that a LEFT SHIFT is Present. International normalized rat io (INR) calculationOrdered By: Serge Mcmullen on 04-09-2025 INR Coag (Bld) [Relative time] 1.0 {INR} [facility] L499.0042on 04-09-2025 Trop T High Sen 86 ng/L Invalid Interpretation Code <=14 [facility] Comment on above: Result Comment: Crit ical Result(s) Called at: 2207 TO Fannie GONZALEZ by:??Luke Qureshi. Results read back by same. Performed By: #### L 499.0042 #### [facility] Laboratory [address] [place], [address] L501.4021on 04-09-2025 Trop T High Sen 95 ng/L Invalid Interpretation Code <=14 [facility] Comment on above: Result Comment: Crit ical Result(s) Called at: 2109 to [place] by:??homa. Results read back by same. Performed By: #### L 100.0100, L500.2500, L503.7505 #### [facility] Laboratory [address] [place], [address] L503.7505on 04-09-2025 Natriuretic peptide B (Bld) [Mass/Vol] 828 pg/mL Normal <=1800 [facility] Comment on above: Result Comment: Hear t Failure Unlikely: < 300 pg/mL Heart Failure Likely < 50 Years: > 450 pg/mL 50-75 Years: > 900 pg/mL >75 Years: > 1800 pg/mL Performed By: #### L 503.7505 #### [facility] Laboratory [address] [place], [address] MCV (mean corpuscular volume ) determinationOrdered By: ED PROVIDER on 04-09-2025 MCV (RBC) [Entitic vol] 94.2 fL 81-99 [facility] Mean corpuscular hemoglobin (MCH) determinationOrdered By: ED PROVIDER on 04-09-2025 MCH (RBC) [Entitic mass] 31.4 pg 27.0-32.0 [facility] Mean corpuscular hemoglobin concentration (MCHC) determinationOrdered By: ED PROVIDER on 04-09-2025 MCHC (RBC) [Mass/Vol] 33.3 g/dL 32-36 [facility] Mean platelet volume determi nationOrdered By: ED PROVIDER on 04-09-2025 Platelet mean volume (Bld) [Entitic vol] 9.7 fL 6.2-12.0 [facility] Monocyte percentageOrdered B y: ED PROVIDER on 04-09-2025 Monocytes/100 WBC (Bld) 12.7 % High 0-10 [facility] Natriuretic peptide.B prohor sarbjit N-Terminal [Mass/volume] in Serum or PlasmaOrdered By: Serge Mcmullen on 04-09-2025 Natriuretic peptide.B prohormone N-Terminal [Mass/Vol] 828 pg/mL <1800 [facility] Comment on above: Heart Failure Unlike ly: < 300 pg/mLHeart Failure Likely< 50 Years: > 450 pg/mL50-75 Years: > 900 pg/mL>75 Years: > 1800 pg/mL Neutrophil percentageOrdered By: ED PROVIDER on 04-09-2025 Neutrophils/100 WBC (Bld) 49.3 % 47-70 [facility] Nucleated red blood cell per centageOrdered By: ED PROVIDER on 04-09-2025 Nucleated RBC/100 WBC (Bld) [Ratio] 0 % 0-5 [facility] Partial Thromboplast Timeon 04-09-2025 aPTT Coag (Bld) [Time] 28.4 s Normal 24.1-36.2 [facility] Comment on above: Performed By: #### L 100.0100, L500.2500, L503.7505 #### [facility] Laboratory [address] [place], [place], [address] Platelet countOrdered By: ED PROVIDER on 04-09-2025 Platelets (Bld) [#/Vol] 216 10*3/uL 150-450 [facility] Potassium measurement (mass/ volume)Ordered By: ED PROVIDER on 04-09-2025 Potassium (Unsp spec) [Mass/Vol] 4.7 mmol/L 3.3-5.1 [facility] Prothrombin Time w/INRon INR Coag (PPP) [Relative time] 1.0 {INR} Normal [facility] Comment on above: Performed By: #### L 100.0100, L500.2500, L503.7505 #### [facility] Laboratory [address] [place], [address] PT Coag (PPP) [Time] 13.6 s Normal 11.7-14.9 [facility] Comment on above: Performed By: #### L 100.0100, L500.2500, L503.7505 #### [facility] Laboratory [address] [place], [address] Prothrombin timeOrdered By: Serge Mmcullen on 04-09-2025 PT Coag (PPP) [Time] 13.6 s 11.7-14.9 [facility] RBC Auto (Bld) [#/Vol]Ordere d By: ED PROVIDER on 04-09-2025 RBC (Bld) [#/Vol] 3.95 10*6/uL Low 4.2-5.4 [facility] Serum creatinine measurement (mass/volume)Ordered By: ED PROVIDER on 04-09-2025 Creatinine [Mass/Vol] 1.54 mg/dL High 0.70-1.20 [facility] Serum glucose measurement (m ass/volume)Ordered By: ED PROVIDER on 04-09-2025 Glucose [Mass/Vol] 98 mg/dL 70-99 [facility] Serum or plasma calcium pratima urement (mass/volume)Ordered By: ED PROVIDER on 04-09-2025 Calcium [Mass/Vol] 9.5 mg/dL 7.6-11.0 [facility] Serum or plasma urea nitroge n measurement (mass/volume)Ordered By: ED PROVIDER on 04-09-2025 Urea nitrogen [Mass/Vol] 31 mg/dL High 4-19 [facility] Sodium levelOrdered By: ED Froylan LOVELACE on 04-09-2025 Sodium [Moles/Vol] 138 mmol/L 133-145 [facility] Troponin T.cardiac [Mass/vol ume] in Serum or Plasma by High sensitivity methodOrdered By: Serge Mcmullen on 04-09-2025 Troponin T.cardiac High sensitivity method [Mass/Vol] 88 ng/L Critically high <14 [facility] Comment on above: Critical Result(s) C alled at:0020 by: HOLLY JUAREZ TO RAHEL GONZALEZ Results read back by same. Troponin T.cardiac High sensitivity method [Mass/Vol] 86 ng/L Critically high <14 [facility] Comment on above: Critical Result(s) C alled at: 2208 TO Fannie GONZALEZ by: Luke Qureshi. Results read back by same. Troponin T.cardiac High sensitivity method [Mass/Vol] 95 ng/L Critically high <14 [facility] Comment on above: Critical Result(s) C alled at: 0 to [place] by: homa. Results read back by same. White blood cell (WBC) count Ordered By: ED PROVIDER on 04-09-2025 WBC (Bld) [#/Vol] 5.7 10*3/uL 4.4-11.0 [facility] 04-04-2025 CNPN Telephone (CARD [facility]) ZENAIDA EVANS ([id number]) 1935 F Date Time Provider Department 04/04/25 PAUL BAUTISTA CARD [facility] During your visit today, we recorded the following information about you: Divine Cleary 04/04/2025 8:49 AM Signed This form is used for MAIN CAMPUS APPOINTMENTS ONLY. Is this request for a Main [place] PET scan appointment? Yes: Manuscripts Archivist: Divine Calabrese Who do we call to schedule this appointment? Patient Requesting Staff [phone] Area Code + Phone/Pager: N/A PET Orders [...] day/next day medically urgent scans please call [phone] to expedite Send requests to P CARDIAC [...] to ordering physician and to P PET AGRICULTURAL TECHNICIAN with recommendations. If all recommended orders are present route to P PET AGRICULTURAL TECHNICIAN Eron Thakkar 04/05/2025 8:24 AM Signed 04/05 1st attempt vmleLeatha White 04/09/2025 3:37 PM Signed PT SCHEDULED 05/24 [...] Assessed Reason for Visit: Nm Pet Request [[id number]] Prescriptions as of 04/09/2025 - indapamide (LOZOL) [...] URINARY CALCULUS (more content not included)... Normal [facility] CNOVon 04-03-2025 CNOV Office Visit (CARD C HF [facility]) ZENAIDA EVANS ([id number]) 1935 F Date Time Provider Department 04/03/25 11:30 AM PAUL BAUTISTA CARD CHF [facility] During your visit today, we recorded the following information about you: Pulse Respiration Blood pressure Weight 67/minute 15/minute 168/89 58.5 kg Height 1.689 m Paul Bautista MD 04/03/2025 12:45 PM Signed [facility] [place] [facility] SECTION OF HEART FAILURE and CARDIAC TRANSPLANT MEDICINE OUTPATIENT VISIT DATE April 03, 2025 OUTPATIENT VISIT TYPE Established Patient PRIMARY CARE PHYSICIAN: Susannah Capellan [address] [place] [id number] CHIEF COMPLAINT: Shortness of breath and chest [...] She also reports intermittent episodes of feeling "sick," characterized by mild headaches, slight nausea, and [...] 03/13/2011 no retinopathy detected -both eyes - [facility] - return in 1 year - Dr. [...] W/WO RMVL TUBE OVARY early Hysterectomy, CAROL, nick (more content not included)... Normal [facility] ECHOon 04-03-2025 Echocardiography Echocardiography Rep ort: Transthoracic Echo [facility] [id number] Date of service: 04/03/2025 10:26:57 AM LEARNING Ordering physician: PAUL BAUTISTA Exam indication: HF Technologist: Slime Dahl Interpreting physician: Joe Herrera MD PATIENT: Name: MRS. ZENAIDA EVANS [...] the prior CC echocardiographic exam performed on 07/27/2024. There is no significant change. * * * Final * * * CC [employer] [facility] : [id number] Normal [facility] CNPNon 04-02-2025 CNPN Telephone ([facility]) ZENAIDA EVANS ([id number]) 1935 F Date Time Provider Department 04/02/25 SUSANNAH CAPELLAN INTLESLIE During your visit today, we recorded the following information about you: Tara Orona MA 04/02/2025 10:05 AM Signed Placed form in Dr. Capellan'jina in basket, please sign Susannah Capellan MD 04/05/2025 3:57 PM Signed This is an application to a wellness program at [facility]. I see that her Drill Foreman has ordered a stress test and I would have to defer to him if there are any limitations after we receive results of the stress test. Tara Orona MA 04/05/2025 4:03 PM Signed Placed form in pending paper slot above JOAN''s desk Tere Londono 04/12/2025 3:00 PM Signed [facility] returned call and message read. Expressed [...] for Visit: Forms [913] Cmt: [facility] Prescriptions as of 04/12/2025 - [...] breast ca (more content not included)... Normal [facility] CNOVon 03-27-2025 CNOV Office Visit ([facility] ) ZENAIDA EVANS ([id number]) 1935 F Date Time Provider Department 03/27/25 3:50 PM SUSANNAH CAPELLAN During your visit today, we recorded the following information about you: Temperature Pulse Blood pressure Weight 97.6 degrees 62/minute 149/81 60.4 kg Height 1.676 m Susannha Capellan MD 03/27/2025 5:41 PM Signed Zenaida Evans is a 89 year old female here for a Medicare wellness visit. Recording using [employer] software for draft documentation of the visit was discussed with the patient/authorized in store marketing representative; all questions welcomed and answered. Patient/authorized in store marketing representative agreed to proceed Zenaida Evans is a 89-year-old female with a history of heart failure, presenting for evaluation of recent episodes of chest pressure, dyspnea, and fatigue. Zenaida reports experiencing two episodes of chest pressure, dyspnea, and fatigue over the past few weeks, similar to previous "heart failure" symptoms. These episodes lasted a couple of days each and resolved spontaneously. She describes the chest pressure as a "heavy feeling" and notes significant fatigue, stating she could "hardly move" and felt "completely washed out" at night. These symptoms were not associated [...] and difficulty walking during a meeting in [facility]. A stress test was performed in July following this event, which showed her heart rate only reached 79% of the maximum, but no ischemia was detected. She has a follow-up appointment with her technical support agent, Dr. Bautista, next week and an echocardiogram [...] the medical record. Dr. Bautista Cardiology Dr. Maria Ortho hand Jitendra Escobedo, Breast Psychology Abena Melchor when daughter was sick [facility] Medical/Family history review Reviewed and updated problem list, medical/surgical/famil (more content not included)... Normal [facility] Basic metabolic 2000 panelon 02-01-2025 Anion gap [Moles/Vol] 7 mmol/L Low 8-15 [facility] Comment on above: Order Comment: Speci men Type: BLOOD SPECIMENOrdering Facility: [facility] Address: [address] [place] [address] Performed By: #### 2 4321-2 ####[facility] [id number] [place] [address] [place] Calcium [Mass/Vol] 9.9 mg/dL Normal 8.5-10.2 [facility] Comment on above: Order Comment: Speci men Type: BLOOD SPECIMENOrdering Facility: [facility] Address: [address] [place] [address] Performed By: #### 2 4321-2 ####[facility] MILL[facility]CL[facility] [id number] [place] [address] [place] Chloride [Moles/Vol] 104 mmol/L Normal 98-107 [facility] Comment on above: Order Comment: Speci men Type: BLOOD SPECIMENOrdering Facility: [facility] Address: [address] [place] [address] Performed By: #### 2 4321-2 ####[facility] [id number] [place] [address] [place] CO2 [Moles/Vol] 28 mmol/L Normal 22-30 [facility] Comment on above: Order Comment: Speci men Type: BLOOD SPECIMENOrdering Facility: [facility] Address: [address] [place] [address] Performed By: #### 2 4321-2 ####[facility]IT[facility] [id number] [place] [address] [place] Creatinine [Mass/Vol] 1.38 mg/dL High 0.58-0.96 [facility] Comment on above: Order Comment: Speci men Type: BLOOD SPECIMENOrdering Facility: [facility] Address: [address] [place] [address] Performed By: #### 2 4321-2 ####[facility]ENTERNCLIA [id number] [place] [address] [place] Creatinine and Glomerular filtration rate.predicted panel (S/P/Bld) 37 mL/min/1.73m??? Low >=60 [facility] Comment on above: Order Comment: Ledy pablo Type: BLOOD SPECIMENOrdering Facility: [facility] Address: [address] [place] [address] Result Comment: Marya mated Glomerular Filtration Rate [...] actual GFR. Performed By: #### 2 4321-2 ####[facility] [id number] [place] [address] [place] Glucose [Mass/Vol] 102 mg/dL High 74-99 [facility] Comment on above: Order Comment: Ledy pablo Type: BLOOD SPECIMENOrdering Facility: [facility] Address: [address] [place] [address] Result Comment: The [place] Diabetes Association (ADA) provides guidance for cutoff [...] Standards of Medical Care in Diabetes 2016, [place] Diabetes Association. Diabetes Care. 2016.39(Suppl 1). Performed By: #### 2 4321-2 ####[facility] [id number] [place] [address] [place] Potassium [Moles/Vol] 4.7 mmol/L Normal 3.7-5.1 [facility] Comment on above: Order Comment: Ledy pablo Type: BLOOD SPECIMENOrdering Facility: [facility] Address: [address] [place] [address] Performed By: #### 2 4321-2 ####[facility] MILLTOWNCLIA [id number] [place] [address] [place] Sodium [Moles/Vol] 139 mmol/L Normal 136-144 [facility] Comment on above: Order Comment: Speci men Type: BLOOD SPECIMENOrdering Facility: [facility] Address: [address] [place] [address] Performed By: #### 2 4321-2 ####[facility]ENTERNCLIA [id number] [place] [address] [place] Urea nitrogen [Mass/Vol] 43 mg/dL High 7-21 [facility] Comment on above: Order Comment: Speci men Type: BLOOD SPECIMENOrdering Facility: [facility] Address: [address] [place] [address] Performed By: #### 2 4321-2 ####[facility]IA [id number] [place] [address] [place] CBC W Auto Differential pane l (Bld)on 02-01-2025 Basophils (Bld) [#/Vol] 10*3/uL Normal <0.11 [facility] Comment on above: Order Comment: Speci men Type: BLOOD SPECIMENOrdering Facility: [facility] Address: [address] [place] [address] Performed By: #### 5 7021-8 ####[facility] MILLWNCLIA [id number] [place] [address] [place] Basophils/100 WBC (Bld) 0.5 % Normal [facility] Comment on above: Order Comment: Speci men Type: BLOOD SPECIMENOrdering Facility: [facility] Address: [address] [place] [address] Performed By: #### 5 7021-8 ####[facility]ENTERGEORGELIA [id number] [place] [address] [place] Differential cell count method Nom (Bld) Auto Normal [facility] Comment on above: Order Comment: Speci men Type: BLOOD SPECIMENOrdering Facility: [facility] Address: [address] [place] [address] Performed By: #### 5 7021-8 ####[facility]ENTERGEORGEUNIVERSITY [facility] [id number] [place] [address] [place] Eosinophils (Bld) [#/Vol] 0.06 10*3/uL Normal <0.46 [facility] Comment on above: Order Comment: Speci men Type: BLOOD SPECIMENOrdering Facility: [facility] Address: [address] [place] [address] Performed By: #### 5 7021-8 ####[facility]ENTERGEORGEUNIVERSITY [facility] [id number] [place] [address] [place] Eosinophils/100 WBC (Bld) 1.4 % Normal [facility] Comment on above: Order Comment: Speci men Type: BLOOD SPECIMENOrdering Facility: [facility] Address: [address] [place] [address] Performed By: #### 5 7021-8 ####[facility] CENTERNCTONY [id number] [place] [address] [place] Erythrocyte distribution width (RBC) [Ratio] 12.8 % Normal 11.5-15.0 [facility] Comment on above: Order Comment: Speci men Type: BLOOD SPECIMENOrdering Facility: [facility] Address: [address] [place] [address] Performed By: #### 5 7021-8 ####[facility]ENTERNCLI [id number] [place] [address] [place] Hematocrit (Bld) [Volume fraction] 33.2 % Low 36.0-46.0 [facility] Comment on above: Order Comment: Speci men Type: BLOOD SPECIMENOrdering Facility: [facility] Address: [address] [place] [address] Performed By: #### 5 7021-8 ####[facility] WILLLACONIABRANDON [id number] [place] [address] [place] Hemoglobin (Bld) [Mass/Vol] 11.0 g/dL Low 11.5-15.5 [facility] Comment on above: Order Comment: Speci men Type: BLOOD SPECIMENOrdering Facility: [facility] Address: [address] [place] [address] Performed By: #### 5 7021-8 ####[facility] [id number] [place] [address] [place] Immature granulocytes (Bld) [#/Vol] 10*3/uL Normal <0.10 [facility] Comment on above: Order Comment: Speci men Type: BLOOD SPECIMENOrdering Facility: [facility] Address: [address] [place] [address] Performed By: #### 5 7021-8 ####[facility]A [id number] [place] [address] [place] Immature granulocytes/100 WBC (Bld) 0.2 % Normal [facility] Comment on above: Order Comment: Speci men Type: BLOOD SPECIMENOrdering Facility: [facility] Address: [address] [place] [address] Performed By: #### 5 7021-8 ####[facility]DR[facility] HOSPITALLI [id number] [place] [address] [place] Lymphocytes (Bld) [#/Vol] 1.82 10*3/uL Normal 1.00-4.00 [facility] Comment on above: Order Comment: Speci men Type: BLOOD SPECIMENOrdering Facility: [facility] Address: [address] [place] [address] Performed By: #### 5 7021-8 ####[facility] SWETHALIA [id number] [place] [address] [place] Lymphocytes/100 WBC (Bld) 42.4 % Normal [facility] Comment on above: Order Comment: Speci men Type: BLOOD SPECIMENOrdering Facility: [facility] Address: [address] [place] [address] Performed By: #### 5 7021-8 ####[facility]ENTERBRYANNAA [id number] [place] [address] [place] MCH (RBC) [Entitic mass] 31.3 pg Normal 26.0-34.0 [facility] Comment on above: Order Comment: Speci men Type: BLOOD SPECIMENOrdering Facility: [facility] Address: [address] [place] [address] Performed By: #### 5 7021-8 ####[facility] CENTERBRANDON [id number] [place] [address] [place] MCHC (RBC) [Mass/Vol] 33.1 g/dL Normal 30.5-36.0 [facility] Comment on above: Order Comment: Speci men Type: BLOOD SPECIMENOrdering Facility: [facility] Address: [address] [place] [address] Performed By: #### 5 7021-8 ####[facility]ENTERBRANDON [id number] [place] [address] [place] MCV (RBC) [Entitic vol] 94.3 fL Normal 80.0-100.0 [facility] Comment on above: Order Comment: Speci men Type: BLOOD SPECIMENOrdering Facility: [facility] Address: [address] [place] [address] Performed By: #### 5 7021-8 ####[facility] CENTERNCLIA [id number] [place] [address] [place] Monocytes (Bld) [#/Vol] 0.41 10*3/uL Normal <0.87 [facility] Comment on above: Order Comment: Speci men Type: BLOOD SPECIMENOrdering Facility: [facility] Address: [address] [place] [address] Performed By: #### 5 7021-8 ####[facility]ENTERNCA [id number] [place] [address] [place] Monocytes/100 WBC (Bld) 9.6 % Normal [facility] Comment on above: Order Comment: Speci men Type: BLOOD SPECIMENOrdering Facility: [facility] Address: [address] [place] [address] Performed By: #### 5 7021-8 ####[facility]ENTERNCLI [id number] [place] [address] [place] Neutrophils (Bld) [#/Vol] 1.97 10*3/uL Normal 1.45-7.50 [facility] Comment on above: Order Comment: Speci men Type: BLOOD SPECIMENOrdering Facility: [facility] Address: [address] [place] [address] Performed By: #### 5 7021-8 ####[facility]A [id number] [place] [address] [place] Neutrophils/100 WBC (Bld) 45.9 % Normal [facility] Comment on above: Order Comment: Speci men Type: BLOOD SPECIMENOrdering Facility: [facility] Address: [address] [place] [address] Performed By: #### 5 7021-8 ####[facility]ENTERNCLIA [id number] [place] [address] [place] Nucleated RBC (Bld) [#/Vol] 10*3/uL Normal <0.01 [facility] Comment on above: Order Comment: Speci men Type: BLOOD SPECIMENOrdering Facility: [facility] Address: [address] [place] [address] Performed By: #### 5 7021-8 ####[facility] WILLKAMALA [id number] [place] [address] [place] Nucleated RBC/100 WBC (Bld) [Ratio] 0.0 /100 WBC Normal [facility] Comment on above: Order Comment: Speci men Type: BLOOD SPECIMENOrdering Facility: [facility] Address: [address] [place] [address] Performed By: #### 5 7021-8 ####[facility]ENTERNCLIScott [id number] [place] [address] [place] Platelet mean volume (Bld) [Entitic vol] 9.1 fL Normal 9.0-12.7 [facility] Comment on above: Order Comment: Speci men Type: BLOOD SPECIMENOrdering Facility: [facility] Address: [address] [place] [address] Performed By: #### 5 7021-8 ####[facility]ENTERNCA [id number] [place] [address] [place] Platelets (Bld) [#/Vol] 150 10*3/uL Normal 150-400 [facility] Comment on above: Order Comment: Speci men Type: BLOOD SPECIMENOrdering Facility: [facility] Address: [address] [place] [address] Performed By: #### 5 7021-8 ####[facility]ENTERNCLIA [id number] [place] [address] [place] RBC (Bld) [#/Vol] 3.52 10*6/uL Low 3.90-5.20 [facility] Comment on above: Order Comment: Speci men Type: BLOOD SPECIMENOrdering Facility: [facility] Address: [address] [place] [address] Performed By: #### 5 7021-8 ####[facility] FAM WILLTOWNCLIA [id number] [place] [address] [place] WBC (Bld) [#/Vol] 4.29 10*3/uL Normal 3.70-11.00 [facility] Comment on above: Order Comment: Speci men Type: BLOOD SPECIMENOrdering Facility: [facility] Address: [address] [place] [address] Performed By: #### 5 7021-8 ####[facility] FAM SOLISTOWNCLIA [id number] [address] [facility] CNPSharmin 01-15-2025 CNPN Telephone (INTMBR) ZENAIDA EVANS ([id number]) 1935 F Date Time Provider Department 01/15/25 SUSANNAH CAPELLAN During your visit today, we recorded the following information about you: Juliet Ayala 01/15/2025 11:06 AM Signed Tommy is calling Susannah Capellan MD today to request Orders (Medical Massage) Patient has been identified by name and birthdate. Duration of symptoms: N/A Person calling: spouse: Tommy Call patient at: [phone] (home) [phone] (cell) Was an appointment scheduled: Closing statement: Eve Gamez PA-C 01/16/2025 8:27 AM Signed Please find out reason for patient wanting medical massage as the order requires a diagnosis Keyona Mckeon LPN 01/17/2025 8:16 AM Signed Left message for patient to return call. Message can be given upon returned call. Tara Orona MA 01/19/2025 9:21 AM Signed Spoke with patient and stated that this was ordered in the past by Eve Daniel and to use the DX on the previous order. Last order was 10/04/2023. Eve Daniel PA-C 01/19/2025 11:25 AM Signed Order placed, [...] Date Reviewed: 07/26/2024 Reviewed by: Tess Mason, PAULINA - Fully Assessed Reason for Visit: Orders [681] Cmt: Medical Massage Primary Visit Diagnosis:Chronic thoracic back pain, unspecified back pain laterality [M54.6, G89.29] Order(s):CONSULT TO MASSAGE THERAPY [[id number]] Order #: [id number]: 1 FUTURE Prescriptions as of 01/19/2025 - [...] Scar cond (more content not included)... Normal [facility] CBC W Auto Differential pane l (Bld)on 11-17-2024 Basophils (Bld) [#/Vol] 10*3/uL Normal <0.11 [facility] Comment on above: Order Comment: Speci men Type: BLOOD SPECIMENOrdering Facility: [facility] Address: [address] [place] [address] Performed By: #### 5 7021-8 ####[facility]A [id number] [place] [address] [place] Basophils/100 WBC (Bld) 0.5 % Normal [facility] Comment on above: Order Comment: Speci men Type: BLOOD SPECIMENOrdering Facility: [facility] Address: [address] [place] [address] Performed By: #### 5 7021-8 ####[facility] HOSPITALLIA [id number] [place] [address] [place] Differential cell count method Nom (Bld) Auto Normal [facility] Comment on above: Order Comment: Speci men Type: BLOOD SPECIMENOrdering Facility: [facility] Address: [address] [place] [address] Performed By: #### 5 7021-8 ####[facility]ENTERNCLIA [id number] [place] [address] [place] Eosinophils (Bld) [#/Vol] 0.05 10*3/uL Normal <0.46 [facility] Comment on above: Order Comment: Speci men Type: BLOOD SPECIMENOrdering Facility: [facility] Address: [address] [place] [address] Performed By: #### 5 7021-8 ####[facility]ENTERNCTONYA [id number] [place] [address] [place] Eosinophils/100 WBC (Bld) 1.2 % Normal [facility] Comment on above: Order Comment: Speci men Type: BLOOD SPECIMENOrdering Facility: [facility] Address: [address] [place] [address] Performed By: #### 5 7021-8 ####[facility]ENTERNCUNIVERSITY [facility] [id number] [place] [address] [place] Erythrocyte distribution width (RBC) [Ratio] 13.1 % Normal 11.5-15.0 [facility] Comment on above: Order Comment: Speci men Type: BLOOD SPECIMENOrdering Facility: [facility] Address: [address] [place] [address] Performed By: #### 5 7021-8 ####[facility]ENTERNCLI [id number] [place] [address] [place] Hematocrit (Bld) [Volume fraction] 33.8 % Low 36.0-46.0 [facility] Comment on above: Order Comment: Speci men Type: BLOOD SPECIMENOrdering Facility: [facility] Address: [address] [place] [address] Performed By: #### 5 7021-8 ####[facility]ENTERNCLIA [id number] [place] [address] [place] Hemoglobin (Bld) [Mass/Vol] 11.4 g/dL Low 11.5-15.5 [facility] Comment on above: Order Comment: Speci men Type: BLOOD SPECIMENOrdering Facility: [facility] Address: [address] [place] [address] Performed By: #### 5 7021-8 ####[facility] [id number] [place] [address] [place] Immature granulocytes (Bld) [#/Vol] 10*3/uL Normal <0.10 [facility] Comment on above: Order Comment: Speci men Type: BLOOD SPECIMENOrdering Facility: [facility] Address: [address] [place] [address] Performed By: #### 5 7021-8 ####[facility] [id number] [place] [address] [place] Immature granulocytes/100 WBC (Bld) 0.2 % Normal [facility] Comment on above: Order Comment: Speci men Type: BLOOD SPECIMENOrdering Facility: [facility] Address: [address] [place] [address] Performed By: #### 5 7021-8 ####[facility] [id number] [place] [address] [place] Lymphocytes (Bld) [#/Vol] 1.92 10*3/uL Normal 1.00-4.00 [facility] Comment on above: Order Comment: Speci men Type: BLOOD SPECIMENOrdering Facility: [facility] Address: [address] [place] [address] Performed By: #### 5 7021-8 ####[facility] HOSPITALLIA [id number] [place] [address] [place] Lymphocytes/100 WBC (Bld) 46.4 % Normal [facility] Comment on above: Order Comment: Speci men Type: BLOOD SPECIMENOrdering Facility: [facility] Address: [address] [place] [address] Performed By: #### 5 7021-8 ####[facility]ENTERNCLIA [id number] [place] [address] [place] MCH (RBC) [Entitic mass] 32.0 pg Normal 26.0-34.0 [facility] Comment on above: Order Comment: Speci men Type: BLOOD SPECIMENOrdering Facility: [facility] Address: [address] [place] [address] Performed By: #### 5 7021-8 ####[facility] [id number] [place] [address] [place] MCHC (RBC) [Mass/Vol] 33.7 g/dL Normal 30.5-36.0 [facility] Comment on above: Order Comment: Speci men Type: BLOOD SPECIMENOrdering Facility: [facility] Address: [address] [place] [address] Performed By: #### 5 7021-8 ####[facility] [id number] [place] [address] [place] MCV (RBC) [Entitic vol] 94.9 fL Normal 80.0-100.0 [facility] Comment on above: Order Comment: Speci men Type: BLOOD SPECIMENOrdering Facility: [facility] Address: [address] [place] [address] Performed By: #### 5 7021-8 ####[facility] [id number] [place] [address] [place] Monocytes (Bld) [#/Vol] 0.52 10*3/uL Normal <0.87 [facility] Comment on above: Order Comment: Speci men Type: BLOOD SPECIMENOrdering Facility: [facility] Address: [address] [place] [address] Performed By: #### 5 7021-8 ####[facility]ENTERNCLIA [id number] [place] [address] [place] Monocytes/100 WBC (Bld) 12.6 % Normal [facility] Comment on above: Order Comment: Speci men Type: BLOOD SPECIMENOrdering Facility: [facility] Address: [address] [place] [address] Performed By: #### 5 7021-8 ####[facility]ENTERNCLIA [id number] [place] [address] [place] Neutrophils (Bld) [#/Vol] 1.62 10*3/uL Normal 1.45-7.50 [facility] Comment on above: Order Comment: Speci men Type: BLOOD SPECIMENOrdering Facility: [facility] Address: [address] [place] [address] Performed By: #### 5 7021-8 ####[facility] [id number] [place] [address] [place] Neutrophils/100 WBC (Bld) 39.1 % Normal [facility] Comment on above: Order Comment: Speci men Type: BLOOD SPECIMENOrdering Facility: [facility] Address: [address] [place] [address] Performed By: #### 5 7021-8 ####[facility] [id number] [place] [address] [place] Nucleated RBC (Bld) [#/Vol] 10*3/uL Normal <0.01 [facility] Comment on above: Order Comment: Speci men Type: BLOOD SPECIMENOrdering Facility: [facility] Address: [address] [place] [address] Performed By: #### 5 7021-8 ####[facility] [id number] [place] [address] [place] Nucleated RBC/100 WBC (Bld) [Ratio] 0.0 /100 WBC Normal [facility] Comment on above: Order Comment: Speci men Type: BLOOD SPECIMENOrdering Facility: [facility] Address: [address] [place] [address] Performed By: #### 5 7021-8 ####[facility] BRIANNA [id number] [place] [address] [place] Platelet mean volume (Bld) [Entitic vol] 9.4 fL Normal 9.0-12.7 [facility] Comment on above: Order Comment: Speci men Type: BLOOD SPECIMENOrdering Facility: [facility] Address: [address] [place] [address] Performed By: #### 5 7021-8 ####[facility] WILLLACONIABRANDON [id number] [place] [address] [place] Platelets (Bld) [#/Vol] 159 10*3/uL Normal 150-400 [facility] Comment on above: Order Comment: Speci men Type: BLOOD SPECIMENOrdering Facility: [facility] Address: [address] [place] [address] Performed By: #### 5 7021-8 ####[facility]ENTERNCTONYA [id number] [place] [address] [place] RBC (Bld) [#/Vol] 3.56 10*6/uL Low 3.90-5.20 [facility] Comment on above: Order Comment: Speci men Type: BLOOD SPECIMENOrdering Facility: [facility] Address: [address] [place] [address] Performed By: #### 5 7021-8 ####[facility]ENTERNCLIA [id number] [place] [address] [place] WBC (Bld) [#/Vol] 4.14 10*3/uL Normal 3.70-11.00 [facility] Comment on above: Order Comment: Speci men Type: BLOOD SPECIMENOrdering Facility: [facility] Address: [address] [place] [address] Performed By: #### 5 7021-8 ####[facility] FAM SOLISLACONIABRANDON [id number] [place] [address] [facility] Laurita 11-15-2024 CNPN Telephone (INTMBR) ZENAIDA EVANS ([id number]) 1935 F Date Time Provider Department 11/15/24 SUSANNAH CAPELLAN INTMBR During your visit today, we recorded the following information about you: Susannah Capellan MD 11/15/2024 11:30 AM Signed Recommend follow up complete blood count to keep an eye on blood counts. Order placed. Keyona Mckeon LPN 11/15/2024 5:21 PM Signed Left message for patient to return call. Message can be given upon returned call [facility] Mara Maciel 11/16/2024 9:22 AM Signed Patient [...] BLOOD COUNT AND DIFFERENTIAL [SQCBCDIF] Order #: [id number] FUTURE Prescriptions as of 11/16/2024 - labetalol [...] 12/02/2011 09/19/20 (more content not included)... Normal [facility] CNPNon 10-24-2024 CNPN Telephone (FAMPTW) ZENAIDA EVANS ([id number]) 1935 F Date Time Provider Department 10/24/24 SUSANNAH CAPELLAN FAMPTW During your visit today, we recorded the following information about you: Johana Snyder 10/24/2024 10:57 AM Signed Zenaida is calling Susannah Capellan MD today regarding the cancelled Medicare Wellness Visit that was cancelled and no appointments available until October of [address] Capellan, per patient she only wants to see PCP and declined scheduling with any other providers. Please call patient to assist with rescheduling with PCP Patient has been identified by name and birthdate. NOTE: patient is also requesting an order for a mammogram Person calling: self Call patient at: at home [phone] (home) verified as best number per patient Was an appointment scheduled: No Closing statement: Results or non-symptom based questions: Thank you for calling [facility], your call will be returned within the next business day. Abena Corral, RN 10/24/2024 11:18 AM Signed Appt made [...] 06/18/2010 09/19/2020 (more content not included)... [facility] SURGICAL PATHOLOGYOrdered By : Helga German on 07-28-2024 Case Report Surgical Pathology R eport Case: [id number] Authorizing Provider: Allie Choudhary MD Collected: 07/26/2024 02:14 PM Ordering Location: Dermatology Received: 07/26/2024 07:02 PM Pathologist: Helga German MD Specimen: Skin, Shave Biopsy, A. right cheek, r/o [facility] Work Phone: Clinical History g1nmdKYqDUIul6iaJCUg bGFuZzEw ZcDrXzUtDnf8SDGuvoG5Ikj1SDZy MAkwpJ0oGTImVPklG6bzwlZniBCt EGRaLJg1eZ5tjTpkyC9xFdBrGaJq MCBIeCBvZiBOTVNDXHBhciB9 [facility] Work Phone: FINAL DIAGNOSIS w9zssUSeBMFnrERnKWym MlxhbnNp TJZhoDMnL6YwfcemFMnpWQ5fGJ1v iNpqxGStlBWbFJYkRiBub4axg324 zADhs8gbCSYKgzdafNw8fNndQ73c v8B9RwzdW73ceBJaLIW1CMWuMUXz dYPsDRLiBZE5YEPccUKdT5wjWJJk UO6nwithLWhqWYitKFOjkRN1PALw sKKhD6EgBOBlEFqxBOTwfhl2LkMq Ob5qzWJqnXbpNKldFLPbFWXbTZpa QVPlIjZpGO2cR6hffyvbzplqaTMk U5tvQMauLHLoKMKhXTAxi8UekJpy jIMmGF0kU4Gtr4RjrCJaEbVgFBHa dW7bnAMkVYQpmtmzFDIiOVAFH86H AbQsJK1gDO7tWOWhBMj6EkUBGPsm YXJ9 [facility] Work Phone: Gross Description e9gxzUViDQHraWIKWEV4 VQFvHI6z sYhwuMy8nLbxCHTnlgE4vFPwDVyq q3vcIDX3n2nggdUWMuxxGSWcUJ1k TKvjISOwCE1zOvDjCOGeJfTaZCHl lYXddpIfJqThAHCmzPGuzWN2IDDl TF3ifbkpGWdxWJrpDFKfapB2AXBi gKOzL7ZrHQBaNP0efvxtIFJ4ZFXU IusbWl8eoUTqnPjvJvBcNpXqMNDa PXEpMOFbk2swnhXQeccioIo2cI8P MDScF7JxRY7Ou3naNVCenRRpELU8 MEzcm8reGGyqNBL3KHSdNVNsNTMi KH7UFdYtZWi0SCs8WNabHyM4NUt8 QFURIUAgLTX3BCd6KjXoBSc6TBgx XFxuaCBcXHQgMSBcXGZsIFxcbmN9 f1zsHMEzcFFgFIH6FFeqb0bjAGan RXF2SPRlZcTkIHWjZR5PIwKyVAx8 PUe4OPrnDfV4DLk6XAEWNqGgVfVn ZNh6UGI3FVKrWHd3BZg2UQyDDuRw Wtw3RrB1SgI4QbH2SAIfLLAvGIYp FbPjJFJyLVJsVXchhFCqVH3gyUdb UJXkMS7ZRBBlDLwjANVuMjUiUZ4d Y9jzxnufD4lbelGpSqdsjOY6GAw0 dnLvRHAnpsVQCpqlAREmIS2JYUHx XTjlKTe4ckLhSADsYvIwDZGuM54w e5HNc6AcBY7WLRy0wcDmyfVIAmcg hoBtASPvK2IcdsOgSLrlVPWqfo3r xJwqNMGpQQO2tRJeXTCfOYctYO68 mvZyYiZ8ZK7pQDFkWdYqk5pzmgMz K0yaHJehcWqhItL4srXkJyLswWLk FbUyuYR4WPMsDPDnyU0sT9YbE8uc KS8uqBHyu4IuqYvzzgBrUjJJp7Ui fMh1ATO5Gr4wzFAcKIJmcuW2q63i Z1Cmh8W9eQOqXkZbcLOoMW1NZKFl aaJZIviYLdKCK5EnMmKjSVykEVOl MjQgODozNiBQTVxwYXIgDQpccGFy GL2IROXyMdGdOVHhG3pkTHGxCL7M U6Ukz8QjBKwkwVwhTFUox70ecHSv Mq3jyZSmNNZ9LYUsKDUpwMQpOZNJ oIdunSGvKGs9NCZdXBWsaBruYBG3 GI6lKQOdKLOefEYzKYwnD9uwFFIc AGVOMgprzGmjSkVgwCYiVzO2CHZc nNRtZEG0CD0hdXfnTHUoM1GxK3Fs zvX8FPJktoOFRbzpGZHzEM9XRICd MjIgDQp9 [facility] Work Phone: Performing Lab g1kkpSDsSSJgtPAbWpUn MDAwXGFu e0naKUJhqEBwOwJiKxZwNsYsAdnm mZCdDSAaTdUxa1psi776aJFis1sr XODwApV4eHGaJEDsoTSlM363BPYk NTulo2lxj6ClUVUwqBTdr7J8TSZH dawicVx7dPusL34lb3B1PuhrG7uc JUEuWIDnJ8QkRE8vWJDiWpz7XAR3 SFD9MKTqBZWjE6KbIA1aEORgyPHv FJa4e6arfHknVEZsNGC5c3lsSLuv kaLeOY5hgp7nrMo5a9zawvAmFVGn PWOspZWHQUQvX4QfqEfhAy2inQw4 eFkbHahfSDK5Xyj7FO5qeu02yrp3 zBpnQCMwmrceMuH9CMdfFGIcruyo LUc6PWvlJCVjuIG7AGUeuKGaF5Ar JEuvGH3jjsy5GMT4AFdnEJZuPoI3 UALtqWEpWLEfiVdhFQceu353LQM0 YiNlHM7rO3Bih7B8kA5zvCOrKPCk zTSeEfDuAVFwqd1vfESdOJfmv7Du YCI5olO4kLSxhGFtBDQcJB19Jduq j0LmObvje1PuE94epQI3UAmrf2an LK0yUoA0grQbZIulj8dbrI5gFrM9 ZKezCZ6yIP2tFLTkmC8dhaxmEVAy YdAlarsiLNMmrWelapCkGy9xdQvc PGQ5JHiqS3upuG8rMxD7WQdwU8zr lT5iWIj0ETtwdLA4PHRfsH5xTH4j gctdd5nvZNxdKUlbLCKhcaZ5hfLm CLSziMKgJ3RxmN7xTMMiXS8reqpt k6ipQZX3JEzlZGTlNIN7CgBpIRMd l0Kvjra7VcAvz7QhkDShWXqiA75f r206MXBkzhSpN8wuyXFkeeganSDm wmmaVLokjjI8LHFiQWYgFSwrEJNh XGZzMjBcbGFuZzEwMzNcaGljaFxm CGyvOkCwDCWiUAzhS0hzZhQmKpLc MCSTeRBwra3edYttLPfeeILnvIXl nXD9hY3uYLWxcgOktz2dWSZjgSBS gSO3CHvoivJlO1rerxkpBDT5MUSm OMQ8E2fiWOAIbcDgJPQrTVVbzUKe NIMLHEX3CAN3XTUdZYUFOBUzTBW8 LVB3CAFdHZWrxGEwBPVueqkxILTr JCOxSTfmQAPvSRMzYqLpkIvhwQ5a VrFgElFvFZhqNT1xWWFfH1vhjJDe PZDuROAmK1olVuAfhM4saXlcMRyy ZjJcZnMyMFxsdHJjaCBMYWJvcmF0 y8L6ULjsiIJttpemVHchnxLcCMyq ornwMCXyGJhtH7ybCpZvKZJlwXhy MQfei9ZlJCVwUNNsYbUeSOvdDOH9 t2X7MLxqtKIirwIQOvSBJV0byZYg oecmCZ5BZyvefKEzsbyhQHktxiQs BHrmieodKBJoOGqwI5gxDtUvCLRd eOvnRHlho4SyYQYwZMRuKeDksKZb fQ== [facility] Work Phone: [facility] Work Phone: UA DIP, URINE (POC)on 2023 BILIRUBIN UA (POCT) Small Abnormal Negative [facility] CLARITY UA (POCT) Clear [facility] COLOR UA (POCT) [facility] [facility] GLUCOSE UA (POCT) 100 mg/dL Abnormal Negative [facility] Hemoglobin Ql (U) Trace-intact Abnormal Negative [facility] Interpretation and review of laboratory results Abnormal [facility] KETONE UA (POCT) Negative Negative mg/dL [facility] LEUKOCYTES UA (POCT) Large Abnormal Negative [facility] NITRITE UA (POCT) Positive Abnormal Negative [facility] PH UA (POCT) 7.0 4.5 - 8.0 [facility] Protein Ql (U) 100 mg/dL Abnormal Negative [facility] SPECIFIC GRAVITY UA (POCT) 1.020 1.005 - 1.030 [facility] UROBILINOGEN UA (POCT) 2.0 Abnormal Ophelia l E.U./dL [facility] Location:[facility], [address], [place], [place], [id number] [place] [address] [facility] XR Chest PA and Lateralon IMPRESSION: No acute radiographic abnormality. Senior Advocate: RUDY Transcribe Date/Time: Jul 14 2024 2:10P Dictated by : MANASA CARTER MD This examination was interpreted and the report reviewed and electronically signed by: MANASA CARTER MD on Jul 14 2024 2:11PM [facility] DIVISION OF RADIOLOGY * * *Final [...] the spine. Scoliosis. DIVISION OF RADIOLOGY Provider, [facility] Robin mena [place] - 07/14/2024 * * *Final Report* * [...] Scoliosis. IMPRESSION IMPRESSION: No acute radiographic abnormality. Senior Advocate: RUDY Transcribe Date/Time: Jul 14 2024 2:10P Dictated by : MANASA CARTER MD This examination was interpreted and the report reviewed and electronically signed by: MANASA CARTER MD on Jul 14 2024 2:11PM EST [facility] Radiology Study observation (narrative) [facility] XR Chest PA and LateralOrder ed By: Ccf Provider on 07-14-2024 [facility] ECG COMPLETEon 07-03-2024 Atrial Rate [address] [facility] Calculated P [place] 65 degrees [facility] Calculated R [place] 46 degrees [facility] Calculated T [place] 62 degrees [facility] P-R Interval [address] [facility] QRS Duration [address] [facility] QT Interval [address] [facility] QTC Calculation (Bazett) [address] [facility] Ventricular Rate 68 BPM [facility] NORMAL SINUS RHYTHM POSSIBLE LEFT ATRIAL ENLARGEMENT BORDERLINE ECG Confirmed by JOSÉ MIGUEL PEREZ MD ([id number]) on 07/03/2024 3:08:37 PM [facility] [place] NAME : ZENAIDA EVANS PID : [id number] : 1935 Gender : Female Race : ORD : Procedure Date : Jul 03 2024 10:54:36 Edit Date : Jul 03 2024 15:08:42 Diagnosis: NORMAL SINUS RHYTHM POSSIBLE LEFT ATRIAL ENLARGEMENT BORDERLINE ECG Confirmed by JOSÉ MIGUEL PEREZ MD ([id number]) on 07/03/2024 3:08:37 PM Test Reason : Location : 156 : [facility] Overread By : JOSÉ MIGUEL PEREZ MD Edited By : JOSÉ MIGUEL PEREZ MD Referred By : DR CAPELLAN, Acquired by : , HEART AND VASCULAR [facility] UA DIP, URINE (POC)on 2023 BILIRUBIN UA (POCT) Negative Negative [facility] CLARITY UA (POCT) Cloudy [facility] COLOR UA (POCT) Dark yellow [facility] GLUCOSE UA (POCT) 250 mg/dL Abnormal Negative [facility] Hemoglobin Ql (U) Moderate Abnormal Negative [facility] Interpretation and review of laboratory results Abnormal [facility] KETONE UA (POCT) Negative Negative mg/dL [facility] LEUKOCYTES UA (POCT) Small Abnormal Negative [facility] NITRITE UA (POCT) Positive Abnormal Negative [facility] PH UA (POCT) 7.0 4.5 - 8.0 [facility] Protein Ql (U) 30 mg/dL Abnormal Negative [facility] SPECIFIC GRAVITY UA (POCT) 1.020 1.005 - 1.030 [facility] UROBILINOGEN UA (POCT) 1.0 Ophelia l E.U./dL [facility] Location:[facility], [address] [place] [address], [place], [place], [id number] [place] [address] [facility] DBT Breast - bilateral leatha mitchell 01-10-2024 * * *Final Report* * * DATE OF EXAM: Jan 07 2024 11:25AM [id number] [id number] - NICOLE SCREENING W MICHELLE / PROCEDURE REASON: Encounter for screening mammogram for breast cancer * * * * Physician Interpretation * * * * RESULT: #[id number] - NICOLE SCREENING W MICHELLE BILATERAL DIGITAL [...] mammogram, 08/18/2021 mammogram, and 07/30/2020 mammogram - [facility]. The breasts are heterogeneously dense, which may obscure small masses. There are benign post operative findings and biopsy clips in the right breast. There is a possible asymmetry in the right breast inner region seen on the craniocaudal view only. No other significant masses, calcifications, or other findings are seen in either breast. DIVISION OF RADIOLOGY Provider, [facility] g [place] - 01/10/2024 * * *Final Report* * * DATE OF EXAM: Jan 07 2024 11:25AM SSW [id number] - NICOLE SCREENING W MICHELLE / PROCEDURE REASON: Encounter for screening mammogram for breast cancer * * * * Physician Interpretation * * * * RESULT: #[id number] - NICOLE SCREENING W MICHELLE BILATERAL DIGITAL [...] mammogram, 08/18/2021 mammogram, and 07/30/2020 mammogram - [facility]. The breasts are heterogeneously dense, which may [...] are recommended. Cristina Benson M.D. tr/meghan:01/10/2024 09:51:04 [employer] Driver(s): RT Gauri(R)(M), [facility] letter sent: Additional Imaging Needed Mammogram BI-RADS: 0 Incomplete: needs additional imaging evaluation If this report indicates you need additional imaging, and it has NOT yet been performed, please call , to schedule. We sincerely thank you for choosing the [facility] for your breast imaging needs. Multiple [...] Health, Family Medicine, and Medical/Surgical Oncology, the [facility] has carefully reviewed the data and [...] their providers when to stop screening mammograms. Senior Advocate: Meghan Transcribe Date/Time: Jan 07 2024 10:48A Dictated by: CRISTINA BENSON MD This examination was interpreted and the report reviewed and electronically signed by: CRISTINA BENSON MD on Jan 10 2024 9:51AM EST [facility] DBT Breast - bilateral scree ningOrdered By: Ccf Provider on 01-10-2024 [facility] DBT Breast - bilateral scree ningon 01-07-2024 Radiology Study observation (narrative) [facility] Absolute lymphocyte countOrd ered By: Armida Mason on 11-06-2023 Lymphocytes Auto (Unsp spec) [#/Vol] 1.63 10*3/uL 0.83-4.51 [facility] Automated lymphocyte count a s percentage of total leukocytesOrdered By: Armida Mason on 11-06-2023 Lymphocytes/100 WBC Auto (Unsp spec) 23.0 % 19-41 [facility] Basophil percentageOrdered B y: Armida Mason on 11-06-2023 Basophils/100 WBC (Bld) 0.3 % 0-1 [facility] Chloride [Moles/Vol] 109 mmol/L 98-107 [facility] Eosinophils/100 WBC (Bld) 0.8 % 0-5 [facility] Glucose [Mass/Vol] 106 mg/dL 74-106 [facility] Comment on above: Fasting Glucose resu lt from 100 to 125 mg/dL suggests IMPAIRED HOMEOSTASIS per A.D.A. criteria. Hemoglobin (Bld) [Mass/Vol] 11.0 g/dL 12.0-15.0 [facility] Monocytes/100 WBC (Bld) 10.0 % 0-10 [facility] Neutrophils (Bld) [#/Vol] 4.6 10*3/uL 2.0-7.7 [facility] Neutrophils/100 WBC (Bld) 65.5 % 47-70 [facility] Potassium [Moles/Vol] 4.1 mmol/L 3.5-5.1 [facility] Sodium [Moles/Vol] 140 mmol/L 136-145 [facility] WBC (Bld) [#/Vol] 7.1 10*3/uL 4.4-11.0 [facility] Determination of erythrocyte mean corpuscular volume (MCV)Ordered By: Armida Mason on 11-06-2023 MCV (RBC) [Entitic vol] 97.7 fL 81-99 [facility] Erythrocyte distribution wid th ratioOrdered By: Armida Mason on 11-06-2023 Erythrocyte distribution width (RBC) [Ratio] 13.2 % 11.6-14.6 [facility] Erythrocyte distribution wid th standard deviationOrdered By: Armida Mason on 11-06-2023 Erythrocyte distribution width (RBC) [Entitic vol] 47.7 fL 35.1-43.9 [facility] Hematocrit Auto (Bld) [Volum e fraction]Ordered By: Armida Mason on 11-06-2023 Hematocrit (Bld) [Volume fraction] 33.9 % 37-47 [facility] Immature granulocytes/100 WB C Auto (Bld)Ordered By: Armida Mason on 11-06-2023 Immature granulocytes/100 WBC (Bld) 0.400 % 0.0-0.9 [facility] Comment on above: IG% - Immature Granu locytes (promyelocytes, myelocytes and metamyelocytes) > 1% indicates that a LEFT SHIFT is Present. Laboratory - Chemistry and C hemistry - challengeOrdered By: Armida Mason on 11-06-2023 CO2 [Moles/Vol] 27.0 mmol/L 21.0-32.0 [facility] Urea nitrogen/Creatinine [Mass ratio] 23.6 mg/mg 10-20 [facility] Laboratory - Hematology and Cell countsOrdered By: Armida Mason on 11-06-2023 MCH (RBC) [Entitic mass] 31.7 pg 27.0-32.0 [facility] MCHC (RBC) [Mass/Vol] 32.4 g/dL 32-36 [facility] Nucleated RBC/100 WBC (Bld) [Ratio] 0 % 0-5 [facility] Platelets (Bld) [#/Vol] 225 10*3/uL 150-450 [facility] Laboratory - Microbiology an d Antimicrobial susceptibilityOrdered By: Armida Mason on 11-06-2023 SARS-CoV-2 (COVID-19) RNA KOKO+probe Ql (Unsp spec) [facility] No Panel InformationOrdered By: Armida Mason on 11-06-2023 Estimated Creatinine Clearance Calc 26.50 ml/min [facility] Estimated GFR (MDRD) Amer 46 mL/min >60 [facility] Comment on above: GFR Calc Estimated GFR (MDRD) Non-Af Amer 38 mL/min >60 [facility] Comment on above: Non- GFR Calc Troponin I High Sensitivity 10 pg/mL 3.0-54.0 [facility] Comment on above: Please Note: New Neli t Units and Gender Specific Reference Ranges. For more information see Policy Stat Procedure [place] High Sensitivity Troponin (TNIH) and attachments. Platelet mean volume Rui-Ec ker (Bld) [Entitic vol]Ordered By: Armida Mason on 11-06-2023 Platelet mean volume (Bld) [Entitic vol] 9.8 fL 6.2-12.0 [facility] RBC Auto (Bld) [#/Vol]Ordere d By: Armida Mason on 11-06-2023 RBC (Bld) [#/Vol] 3.47 10*6/uL 4.2-5.4 [facility] Serum or plasma calcium pratima urement (mass/volume)Ordered By: Armida Mason on 11-06-2023 Calcium [Mass/Vol] 9.4 mg/dL 8.5-10.1 [facility] Serum or plasma creatinine m easurement (mass/volume)Ordered By: Armida Mason on 11-06-2023 Creatinine [Mass/Vol] 1.40 mg/dL 0.55-1.02 [facility] Comment on above: The validity of the calculated GFR & GFRAA in patients over 70 years has not been determined. Clinical correlation is essential. Serum or plasma urea nitroge n measurement (mass/volume)Ordered By: Armida Mason on 11-06-2023 Urea nitrogen [Mass/Vol] 33 mg/dL 7-18 [facility] Thin prep Papanicolaou smear with manual screeningOrdered By: Armida Mason on 11-06-2023 Thin prep Papanicolaou smear with manual screening 4 -15 [facility] NM HEPATOBILIARY W EF AND/OR RXon 07-08-2023 [facility] No Panel Informationon 04-01 [facility] No Panel Informationon 03-08 [facility] XR CHEST 2V FRONTAL/LATon [facility] DBT Breast - bilateral scree chaigon 01-06-2023 IMPRESSION: BENIGN F INDING There is no mammographic evidence of malignancy. A 1 year screening mammogram is recommended. Simran Laughlin M.D., ch/meghan:01/06/2023 16:13:36 [employer](s): RT Lidia(R)(M), [facility] letter sent: Normal over 40 Mammogram BI-RADS: [...] Health, Family Medicine, and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 photgraphy.REVIEW OF SYSTEMS: [...] suggest she consider moderate intensity statintherapy.Electronically Signed:Scotty Galdamez MDAugust 26, 2017 11:21 [facility]:Héctor Vargas MD 08/26/2017 11:22 AM SignedLIFESTGILLES [...] about programs in your area.Referring Provider: SUSANNAH CAPELLAN [[id number]]Allergies As of Date: 08/26/2017 Noted Allergy ReactionSCOPOLAMINE [...] unspecified type [R07.9] SVT (supraventricular tachycardia) ([facility]) [I47.1]Order(s):ECG B/O W INTERP (MED OFFICE) [ECG06] Order #: [id number] as of 08/26/2017 Sig: BUDESONIDE DR - [...] CHLORDIAZEPOXIDE-CLIDINIUM 5 MG-2.5 MG CAPSULE >> Tika JOAN Jeffrey 08/26/2017 10:51 AM >> TIKA JEFFREY MA Lindsay Aug 26, 2017 10:51 AM Not taking DIPHENOXYLATE-ATROPINE 2.5 MG-0.025 MG TABLET >> Tika Jeffrey MA 08/26/2017 10:51 AM >> TIMA TIKA FRANCO [facility] Aug 26, 2017 10:51 AM Not taking BISMUTH SUBSALICYLATE 262 MG CHEWABLE TABLET >> Tika Jeffrey MA 08/26/2017 10:50 AM >> TIMA TIKA FRANCO [facility] Aug 26, 2017 10:50 AM Not [...] [R26.9] INVALID FOR* Vaginal atrophy [N95.2] Dyspareunia [ALU0006] Seborrheic dermatitis [L21.9] INVALID FOR* Vaginismus [N94.2] [...] the following areas and commit to making online marketing director changes. EAT A WHOLE FOOD, PLANT BASED [...] where you can come visit with Dr. Galdamez in the company of other patients and spend over an hour talking about the challenges of changing the way you eat. This is not a "diet". It is a way of life that [...] your area.Follow-up and Disposition History RecordedEncounter Number: [id number] Status:Closed by SCOTTY GALDAMEZ MD on 08/27/17 Normal [facility] PROGRESSon 08-26-2017 PROGRESS HNO ID: [id number] thor: Scotty Rankin: (none)Author Type: PhysicianType: Progress NotesFiled: 08/27/2017 10:10 AMNote Text:PERTINENT CARDIAC HISTORYChest pain - normal cath and stressPalpitations - SVTHTNHLADHERENCE TO GUIDELINESACE-I or ARB for HF with prior LVEF<40 (NQF 0081) - N/AASA or Plavix for ASHD (NQF 0067) - metBeta cecilia for ASHD with prior MA or prior LVEF<40 (NQF 0070) - N/ABeta [...] with treatment plan.This note was generated using [email or web address] voice recognition system, and theremay be some [...] 03/13/2011 no retinopathy detected -both eyes - [facility] - return in 1year - Dr. Ruby- [...] History Narrative . 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. 3 children. 5 grandchildren (no greats yet). Enjoys gardening, anything outside, working on manuscript for a book [employer], Elsa. Enjoys knitting, sewing and photgraphy.REVIEW OF SYSTEMS: General: No chills, fever, weight loss, night sweats. Respiratory: No productive cough. Cardiac: As noted above. GI: Nomelena. : No dysuria. Musculoskeletal: No myalgias.PHYSICAL EXAMINATION: S/he is alert and in no distress.VITAL SIGNS: BP 140/84 Pulse 72 Ht 5' 6.5" (1.69m) Wt 152 lb 11.2 oz(69.3kg) BMI [...] suggest she consider moderateintensity statin therapy.Electronically Signed:Scotty Galdamez MDNovember 2016 11:21 [facility]:Susannah Capellan MD [facility] Additional Injections: Cathryn farias A1 [facility] Vital Signs Date Time Vital Sign Value Performing Clinician Rosemary gonzales 07-11-2025 15:22-0400 Body height 167.[address] Susannah Capellan MD Work Phone: [facility] 07-11-2025 15:22-0400 Body mass index (BMI) [Ratio] 20.8 kg/m2 Dr. Susannah Capellan MD Work Phone: [facility] 07-11-2025 15:22-0400 Body weight 58.[address] Susannah Capellan MD Work Phone: [facility] 07-11-2025 14:40-0400 Diastolic blood pressure 56 mm[Hg] Dr. Susannah Capellan MD Work Phone: [facility] 07-11-2025 14:40-0400 Systolic blood pressure 110 mm[Hg] Dr. Susannah Capellan MD Work Phone: [facility] 07-11-2025 14:36-0400 SaO2% (BldA) [Mass fraction] 96 % Dr. Susannah Capellan MD Work Phone: [facility] 07-11-2025 14:31-0400 Heart rate 62 /min Dr. Susannah Capellan MD Work Phone: [facility] 06-25-2025 10:26-0400 Diastolic blood pressure 72 mm[Hg] Susannah Capellan MD Work Phone: [facility] 06-25-2025 10:26-0400 Systolic blood pressure 145 mm[Hg] Susannah Capellan MD Work Phone: [facility] 06-25-2025 09:44-0400 Body mass index (BMI) [Ratio] 21.96 kg/m2 Susannah Capellan MD Work Phone: [facility] 06-25-2025 09:44-0400 Body temperature 98.01 [degF] Susannah Capellan MD Work Phone: [facility] 06-25-2025 09:44-0400 Body weight 60.5 kg Susannah Capellan MD Work Phone: [facility] 06-25-2025 09:44-0400 Heart rate 74 /min Susannah Capellan MD Work Phone: [facility] 06-25-2025 09:44-0400 SaO2% (BldA) [Mass fraction] 97 % Susannah Capellan MD Work Phone: [facility] [facility] 06-[facility]25 14:31-0400 Body mass index (BMI) [Ratio] 21.56 kg/m2 Marco Doan APRN.BUSINESS PROFESSOR Work Phone: [facility] 06-05-2025 14:31-0400 Body temperature 98.01 [degF] Marco Doan APRN.BUSINESS PROFESSOR Work Phone: [facility] 06-05-2025 14:31-0400 Body weight 59.4 kg Marco Doan SOCCER COMMENTATOR.BUSINESS PROFESSOR Work Phone: [facility] 06-05-2025 14:31-0400 Diastolic blood pressure 76 mm[Hg] Marco Doan SOCCER COMMENTATOR.BUSINESS PROFESSOR Work Phone: [facility] 06-05-2025 14:31-0400 Heart rate 86 /min Marco Doan SOCCER COMMENTATOR.BUSINESS PROFESSOR Work Phone: [facility] 06-05-2025 14:31-0400 Respiratory rate 16 /min Marco Ruelasmonique SOCCER COMMENTATOR.BUSINESS PROFESSOR Work Phone: [facility] 06-05-2025 14:31-0400 SaO2% (BldA) [Mass fraction] 94 % Marco Ruelasmonique SOCCER COMMENTATOR.BUSINESS PROFESSOR Work Phone: [facility] 06-05-2025 14:31-0400 Systolic blood pressure 132 mm[Hg] Marco Olimpia SOCCER COMMENTATOR.BUSINESS PROFESSOR Work Phone: [facility] 05-31-2025 10:54-0400 Diastolic blood pressure 70 mm[Hg] Lucius Patricio MD Work Phone: [facility] Comment on above: provider notified 05-31-2025 10:54-0400 Heart rate 62 /min Lucius Patricio MD Work Phone: [facility] 05-31-2025 10:54-0400 SaO2% (BldA) [Mass fraction] 96 % Lucius Patricio MD Work Phone: [facility] 05-31-2025 10:54-0400 Systolic blood pressure 176 mm[Hg] Lucius Patricio MD Work Phone: [facility] Comment on above: provider notified 05-07-2025 08:50-0400 Body height 167.6 cm Paul Bautista MD Work Phone: [facility] 05-07-2025 08:50-0400 Body mass index (BMI) [Ratio] 20.21 kg/m2 Paul Bautista MD Work Phone: [facility] 05-07-2025 08:50-0400 Body weight 56.79 kg Paul Bautista MD Work Phone: [facility] 05-07-2025 08:50-0400 Diastolic blood pressure 71 mm[Hg] Paul Bautista MD Work Phone: [facility] 05-07-2025 08:50-0400 Heart rate 72 /min Paul Bautista MD Work Phone: [facility] 05-07-2025 08:50-0400 SaO2% (BldA) [Mass fraction] 96 % Paul Bautista MD Work Phone: [facility] Comment on above: RA 05-07-2025 08:50-0400 Systolic blood pressure 138 mm[Hg] Paul Bautista MD Work Phone: [facility] 04-29-2025 08:14-0400 Body temperature 97.8 [degF] Dr. Susannah Capellan MD Work Phone: [facility] 04-29-2025 08:14-0400 Respiratory rate 16 /min Dr. Susannah Capellan MD Work Phone: [facility] 04-29-2025 08:14-0400 SaO2% (BldA) [Mass fraction] 96 % Dr. Susannah Capellan MD Work Phone: [facility] 04-29-2025 07:57-0400 Diastolic blood pressure 63 mm[Hg] Dr. Susannah Capellan MD Work Phone: [facility] 04-29-2025 07:57-0400 Heart rate 85 /min Dr. Susannah Capellan MD Work Phone: [facility] 04-29-2025 07:57-0400 Systolic blood pressure 108 mm[Hg] Dr. Susannah Capellan MD Work Phone: [facility] 04-28-2025 11:10-0400 Body height 167.[address] Susannah Capellan MD Work Phone: [facility] 04-28-2025 11:10-0400 Body weight 56.[address] Susannah Capellan MD Work Phone: [facility] 04-27-2025 21:23-0400 Body mass index (BMI) [Ratio] 20.1 kg/m2 Dr. Susannah Capellan MD Work Phone: [facility] 04-27-2025 19:41-0400 Body temperature 98 [degF] Dr. Susannah Capellan MD Work Phone: [facility] 04-27-2025 19:41-0400 Diastolic blood pressure 73 mm[Hg] Dr. Susannah Capellan MD Work Phone: [facility] 04-27-2025 19:41-0400 Heart rate 63 /min Dr. Susannah Capellan MD Work Phone: [facility] 04-27-2025 19:41-0400 Respiratory rate 18 /min Dr. Susannah Capellan MD Work Phone: [facility] 04-27-2025 19:41-0400 SaO2% (BldA) [Mass fraction] 96 % Dr. Susannah Capellan MD Work Phone: [facility] 04-27-2025 19:41-0400 Systolic blood pressure 181 mm[Hg] Dr. Susannah Capellan MD Work Phone: [facility] 04-27-2025 13:15-0400 Body height 167.[address] Susannah Capellan MD Work Phone: [facility] 04-27-2025 13:15-0400 Body mass index (BMI) [Ratio] 20.7 kg/m2 Dr. Susannah Capellan MD Work Phone: [facility] 04-27-2025 13:15-0400 Body weight 58.[address] Susannah Capellan MD Work Phone: [facility] 04-27-2025 10:35-0400 Body mass index (BMI) [Ratio] 20.43 kg/m2 Eve Daniel PA-C Work Phone: [facility] 04-27-2025 10:35-0400 Body temperature 98.29 [degF] Eve Daniel PA-C Work Phone: [facility] 04-27-2025 10:35-0400 Body weight 58.3 kg Eve Gregoriouerger PA-C Work Phone: [facility] 04-27-2025 10:35-0400 Diastolic blood pressure 64 mm[Hg] Eve Jguerger PA-C Work Phone: [facility] 04-27-2025 10:35-0400 Heart rate 71 /min Eve Jguerger PA-C Work Phone: [facility] 04-27-2025 10:35-0400 SaO2% (BldA) [Mass fraction] 91 % Eve Gregoriouerger PA-C Work Phone: [facility] 04-27-2025 10:35-0400 Systolic blood pressure 119 mm[Hg] Eve Jguerger PA-C Work Phone: [facility] 04-17-2025 15:44-0400 Body mass index (BMI) [Ratio] 20.54 kg/m2 Susannah Capellan MD Work Phone: [facility] 04-17-2025 15:44-0400 Body temperature 98.01 [degF] Susannah Capellan MD Work Phone: [facility] 04-17-2025 15:44-0400 Body weight 58.6 kg Susannah Capellan MD Work Phone: [facility] 04-17-2025 15:44-0400 Diastolic blood pressure 72 mm[Hg] Susannah Capellan MD Work Phone: [facility] 04-17-2025 15:44-0400 Heart rate 68 /min Susannah Capellan MD Work Phone: [facility] 04-17-2025 15:44-0400 SaO2% (BldA) [Mass fraction] 95 % Susannah Capellan MD Work Phone: [facility] 04-17-2025 15:44-0400 Systolic blood pressure 132 mm[Hg] Susannah Capellan MD Work Phone: [facility] 04-11-2025 15:39-0400 Body temperature 98.1 [degF] Dr. Susannah Capellan MD Work Phone: [facility] 04-11-2025 15:39-0400 Diastolic blood pressure 88 mm[Hg] Dr. Susannah Capellan MD Work Phone: [facility] 04-11-2025 15:39-0400 Heart rate 76 /min Dr. Susannah Capellan MD Work Phone: [facility] 04-11-2025 15:39-0400 Respiratory rate 16 /min Dr. Susannah Capellan MD Work Phone: [facility] 04-11-2025 15:39-0400 SaO2% (BldA) [Mass fraction] 92 % Dr. Susannah Capellan MD Work Phone: [facility] 04-11-2025 15:39-0400 Systolic blood pressure 139 mm[Hg] Dr. Susannah Capellan MD Work Phone: [facility] 04-10-2025 09:52-0400 Body height 167.[address] Susannah Capellan MD Work Phone: [facility] 04-10-2025 09:52-0400 Body weight 57.[address] Susannah Capellan MD Work Phone: [facility] 04-10-2025 08:56-0400 Inhaled oxygen flow rate 95 L/min Dr. Susannah Capellan MD Work Phone: [facility] 04-10-2025 00:23-0400 Body mass index (BMI) [Ratio] 20.5 kg/m2 Dr. Susannah Capellan MD Work Phone: [facility] 04-10-2025 00:00-0400 Diastolic blood pressure 78 mm[Hg] Dr. Susannah Capellan MD Work Phone: [facility] 04-10-2025 00:00-0400 Heart rate 65 /min Dr. Susannah Capellan MD Work Phone: [facility] 04-10-2025 00:00-0400 Respiratory rate 12 /min Dr. Susannah Capellan MD Work Phone: [facility] 04-10-2025 00:00-0400 SaO2% (BldA) [Mass fraction] 94 % Dr. Susannah Capellan MD Work Phone: [facility] 04-10-2025 00:00-0400 Systolic blood pressure 179 mm[Hg] Dr. Susannah Capellan MD Work Phone: [facility] 04-09-2025 23:08-0400 Body temperature 97.8 [degF] Dr. Susannah Capellan MD Work Phone: [facility] 04-09-2025 18:49-0400 Body height 167.[address] Susannah Capellan MD Work Phone: [facility] 04-09-2025 18:49-0400 Body mass index (BMI) [Ratio] 20.9 kg/m2 Dr. Susannah Capellan MD Work Phone: [facility] 04-09-2025 18:49-0400 Body weight 58.[address] Susannah Capellan MD Work Phone: [facility] 04-03-2025 12:08-0400 Diastolic blood pressure 89 mm[Hg] Paul Bautista MD Work Phone: [facility] 04-03-2025 12:08-0400 Systolic blood pressure 168 mm[Hg] Paul Bautista MD Work Phone: [facility] 04-03-2025 12:04-0400 Body height 168.9 cm Paul Bautista MD Work Phone: [facility] 04-03-2025 12:04-0400 Body mass index (BMI) [Ratio] 20.51 kg/m2 Paul Bautista MD Work Phone: [facility] 04-03-2025 12:04-0400 Body weight 58.51 kg Paul Bautista MD Work Phone: [facility] 04-03-2025 12:04-0400 Heart rate 67 /min Paul Bautista MD Work Phone: [facility] 04-03-2025 12:04-0400 Respiratory rate 15 /min Paul Bautista MD Work Phone: [facility] 04-03-2025 12:04-0400 SaO2% (BldA) [Mass fraction] 95 % Paul Bautista MD Work Phone: [facility] 03-27-2025 16:37-0400 Diastolic blood pressure 81 mm[Hg] Susannah Capellan MD Work Phone: [facility] 03-27-2025 16:37-0400 Systolic blood pressure 149 mm[Hg] Susannah Capellan MD Work Phone: [facility] 03-27-2025 16:02-0400 Body height 167.6 cm Susannah Capellan MD Work Phone: [facility] 03-27-2025 16:02-0400 Body mass index (BMI) [Ratio] 21.49 kg/m2 Susannah Capellan MD Work Phone: [facility] 03-27-2025 16:02-0400 Body temperature 97.59 [degF] Susannah Capellan MD Work Phone: [facility] 03-27-2025 16:02-0400 Body weight 60.4 kg Susannah Capellan MD Work Phone: [facility] 03-27-2025 16:02-0400 Heart rate 62 /min Susannah Capellan MD Work Phone: [facility] 03-27-2025 16:02-0400 SaO2% (BldA) [Mass fraction] 97 % Susannah Capellan MD Work Phone: [facility] 07-26-2024 13:57-0400 Body height 167.6 cm Allie Choudhary MD Work Phone: [facility] 07-26-2024 13:57-0400 Body mass index (BMI) [Ratio] 21.69 kg/m2 Allie Choudhary MD Work Phone: [facility] 07-26-2024 13:57-0400 Body weight 60.96 kg Allie Choudhary MD Work Phone: [facility] 07-26-2024 13:57-0400 Diastolic blood pressure 75 mm[Hg] Allie Choudhary MD Work Phone: [facility] 07-26-2024 13:57-0400 Systolic blood pressure 188 mm[Hg] Allie Choudhary MD Work Phone: [facility] 07-17-2024 10:43-0400 Body mass index (BMI) [Ratio] 22.1 kg/m2 Joshua Godinez MD Work Phone: [facility] 07-17-2024 10:43-0400 Body temperature 97.3 [degF] Joshua Godinez MD Work Phone: [facility] 07-17-2024 10:43-0400 Body weight 62.1 kg Joshua Godinez MD Work Phone: [facility] 07-17-2024 10:43-0400 Diastolic blood pressure 84 mm[Hg] Joshua Godinez MD Work Phone: [facility] 07-17-2024 10:43-0400 Heart rate 82 /min Joshua Godinez MD Work Phone: [facility] 07-17-2024 10:43-0400 Respiratory rate 18 /min Joshua Godinez MD Work Phone: [facility] 07-17-2024 10:43-0400 SaO2% (BldA) [Mass fraction] 95 % Joshua Godinez MD Work Phone: [facility] 07-17-2024 10:43-0400 Systolic blood pressure 144 mm[Hg] Joshua Godinez MD Work Phone: [facility] 07-13-2024 14:28-0400 Body mass index (BMI) [Ratio] 22.17 kg/m2 Win Martinez MD Work Phone: [facility] 07-13-2024 14:28-0400 Body temperature 98.2 [degF] Win Martinez MD Work Phone: [facility] 07-13-2024 14:28-0400 Body weight 62.3 kg Win Martinez MD Work Phone: [facility] 07-13-2024 14:28-0400 Diastolic blood pressure 82 mm[Hg] Win Martinez MD Work Phone: [facility] 07-13-2024 14:28-0400 Heart rate 63 /min Win Martinez MD Work Phone: [facility] 07-13-2024 14:28-0400 Respiratory rate 20 /min Win Martinez MD Work Phone: [facility] 07-13-2024 14:28-0400 SaO2% (BldA) [Mass fraction] 97 % Win Martinez MD Work Phone: [facility] 07-13-2024 14:28-0400 Systolic blood pressure 165 mm[Hg] Win Martinez MD Work Phone: [facility] 07-03-2024 10:20-0400 Body mass index (BMI) [Ratio] 21.81 kg/m2 Susannah Capellan MD Work Phone: [facility] 07-03-2024 10:20-0400 Body temperature 97.9 [degF] Susannah Capellan MD Work Phone: [facility] 07-03-2024 10:20-0400 Body weight 61.3 kg Susannah Capellan MD Work Phone: [facility] 07-03-2024 10:20-0400 Diastolic blood pressure 72 mm[Hg] Susannah Capellan MD Work Phone: [facility] 07-03-2024 10:20-0400 Heart rate 74 /min Susannah Capellan MD Work Phone: [facility] 07-03-2024 10:20-0400 SaO2% (BldA) [Mass fraction] 96 % Susannah Capellan MD Work Phone: [facility] 07-03-2024 10:20-0400 Systolic blood pressure 136 mm[Hg] Susannah Capellan MD Work Phone: [facility] 06-26-2024 15:51-0400 Body mass index (BMI) [Ratio] 21.63 kg/m2 Emilee Indorf SOCCER COMMENTATOR.BUSINESS PROFESSOR Work Phone: [facility] 06-26-2024 15:51-0400 Body temperature 97.39 [degF] Emliee Indorf SOCCER COMMENTATOR.BUSINESS PROFESSOR Work Phone: [facility] 06-26-2024 15:51-0400 Body weight 60.8 kg Emilee Indorf SOCCER COMMENTATOR.BUSINESS PROFESSOR Work Phone: [facility] 06-26-2024 15:51-0400 Diastolic blood pressure 78 mm[Hg] Emilee Indorf SOCCER COMMENTATOR.BUSINESS PROFESSOR Work Phone: [facility] 06-26-2024 15:51-0400 Heart rate 78 /min Emilee Indorf SOCCER COMMENTATOR.BUSINESS PROFESSOR Work Phone: [facility] 06-26-2024 15:51-0400 Respiratory rate 16 /min Emilee Indorf SOCCER COMMENTATOR.BUSINESS PROFESSOR Work Phone: [facility] 06-26-2024 15:51-0400 SaO2% (BldA) [Mass fraction] 94 % Emilee Indorf SOCCER COMMENTATOR.BUSINESS PROFESSOR Work Phone: [facility] 06-26-2024 15:51-0400 Systolic blood pressure 132 mm[Hg] Emilee Alisia SOCCER COMMENTATOR.BUSINESS PROFESSOR Work Phone: [facility] 06-11-2024 12:32-0400 Body mass index (BMI) [Ratio] 20.99 kg/m2 Kelsi Colby SOCCER COMMENTATOR.BUSINESS PROFESSOR Work Phone: [facility] 06-11-2024 12:32-0400 Body temperature 97.11 [degF] Kelsi Colby SOCCER COMMENTATOR.BUSINESS PROFESSOR Work Phone: [facility] 06-11-2024 12:32-0400 Body weight 59 kg Kelsi Colby SOCCER COMMENTATOR.BUSINESS PROFESSOR Work Phone: [facility] 06-11-2024 12:32-0400 Diastolic blood pressure 85 mm[Hg] Kelsi Colby SOCCER COMMENTATOR.BUSINESS PROFESSOR Work Phone: [facility] 06-11-2024 12:32-0400 Heart rate 70 /min Kelsi Colby SOCCER COMMENTATOR.BUSINESS PROFESSOR Work Phone: [facility] 06-11-2024 12:32-0400 Respiratory rate 20 /min Kelsi Colby SOCCER COMMENTATOR.BUSINESS PROFESSOR Work Phone: [facility] 06-11-2024 12:32-0400 SaO2% (BldA) [Mass fraction] 96 % Kelsi Colby SOCCER COMMENTATOR.BUSINESS PROFESSOR Work Phone: [facility] 06-11-2024 12:32-0400 Systolic blood pressure 176 mm[Hg] Kelsi Colby SOCCER COMMENTATOR.BUSINESS PROFESSOR Work Phone: [facility] 03-30-2024 14:48-0400 Body height 167.6 cm Paul Bautista MD Work Phone: [facility] 03-30-2024 14:48-0400 Body mass index (BMI) [Ratio] 21.14 kg/m2 Paul Bautista MD Work Phone: [facility] 03-30-2024 14:48-0400 Body weight 59.42 kg Paul Bautista MD Work Phone: [facility] 03-30-2024 14:48-0400 Diastolic blood pressure 68 mm[Hg] Paul Bautista MD Work Phone: [facility] 03-30-2024 14:48-0400 Heart rate 75 /min Paul Bautista MD Work Phone: [facility] 03-30-2024 14:48-0400 SaO2% (BldA) [Mass fraction] 97 % Paul Bautista MD Work Phone: [facility] Comment on above: 03-30-2024 14:48-0400 Systolic blood pressure 133 mm[Hg] Paul Bautista MD Work Phone: [facility] 03-29-2024 12:39-0400 Diastolic blood pressure 58 mm[Hg] Susannah Capellan MD Work Phone: [facility] 03-29-2024 12:39-0400 Systolic blood pressure 120 mm[Hg] Susannah Capellan MD Work Phone: [facility] 03-28-2024 16:32-0400 Diastolic blood pressure 91 mm[Hg] Susannah Capellan MD Work Phone: [facility] 03-28-2024 16:32-0400 Systolic blood pressure 176 mm[Hg] Susannah Capellan MD Work Phone: [facility] 03-28-2024 16:07-0400 Body mass index (BMI) [Ratio] 22.03 kg/m2 Susannah Capellan MD Work Phone: [facility] 03-28-2024 16:07-0400 Body temperature 97.7 [degF] Susannah Capellan MD Work Phone: [facility] 03-28-2024 16:07-0400 Body weight 61.92 kg Susannah Capellan MD Work Phone: [facility] 03-28-2024 16:07-0400 Heart rate 60 /min Susannah Capellan MD Work Phone: [facility] 03-28-2024 16:07-0400 SaO2% (BldA) [Mass fraction] 97 % Susannah Capellan MD Work Phone: [facility] 01-26-2024 11:31-0400 Body height 167.6 cm Virgil Gomez MD Work Phone: [facility] 01-26-2024 11:31-0400 Body temperature 97.7 [degF] Virgil Gomez MD Work Phone: [facility] 01-26-2024 11:31-0400 Body weight 62.14 kg Virgil Gomez MD Work Phone: [facility] 01-26-2024 11:31-0400 Diastolic blood pressure 75 mm[Hg] Virgil Gomez MD Work Phone: [facility] 01-26-2024 11:31-0400 Heart rate 64 /min Virgil Gomez MD Work Phone: [facility] 01-26-2024 11:31-0400 SaO2% (BldA) [Mass fraction] 96 % Virgil Gomez MD Work Phone: [facility] 01-26-2024 11:31-0400 Systolic blood pressure 181 mm[Hg] Virgil Gomez MD Work Phone: [facility] 11-06-2023 13:44-0500 Diastolic blood pressure 81 mm[Hg] [facility] 11-06-2023 13:44-0500 Heart rate 63 /min [facility] 11-06-2023 13:44-0500 Systolic blood pressure 178 mm[Hg] [facility] 11-06-2023 11:49-0500 Body height 167.[address] [facility] 11-06-2023 11:49-0500 Body mass index (BMI) [Ratio] 21.9 kg/m2 [facility] 11-06-2023 11:49-0500 Body temperature 95.6 [degF] [facility] 11-06-2023 11:49-0500 Body weight 61.[address] [facility] 11-06-2023 11:49-0500 Respiratory rate 16 /min [facility] 11-06-2023 11:49-0500 SaO2% (BldA) [Mass fraction] 98 % [facility] 09-30-2023 11:48-0500 Body height 167.6 cm Paul Bautista MD Work Phone: [facility] 09-30-2023 11:48-0500 Body weight 59.88 kg Paul Bautista MD Work Phone: [facility] 09-30-2023 11:48-0500 Diastolic blood pressure 63 mm[Hg] Paul Bautista MD Work Phone: [facility] 09-30-2023 11:48-0500 Heart rate 70 /min Paul Bautista MD Work Phone: [facility] 09-30-2023 11:48-0500 Respiratory rate 15 /min Paul Bautista MD Work Phone: [facility] 09-30-2023 11:48-0500 SaO2% (BldA) [Mass fraction] 95 % Paul Bautista MD Work Phone: [facility] 09-30-2023 11:48-0500 Systolic blood pressure 155 mm[Hg] Paul Bautista MD Work Phone: [facility] 08-06-2023 11:11-0400 Body height 166.4 cm Bertha Yanez PA-C Work Phone: [facility] 08-06-2023 11:11-0400 Body weight 60.83 kg Bertha Yanez PA-C Work Phone: [facility] 08-06-2023 11:11-0400 Diastolic blood pressure 67 mm[Hg] Bertha Yanez PA-C Work Phone: [facility] 08-06-2023 11:11-0400 Heart rate 69 /min Bertha Yanez PA-C Work Phone: [facility] 08-06-2023 11:11-0400 SaO2% (BldA) [Mass fraction] 95 % Bertha Yanez PA-C Work Phone: [facility] 08-06-2023 11:11-0400 Systolic blood pressure 125 mm[Hg] Bertha Yanez PA-C Work Phone: [facility] 07-05-2023 13:43-0400 Diastolic blood pressure 60 mm[Hg] Susannah Capellan MD Work Phone: [facility] 07-05-2023 13:43-0400 Systolic blood pressure 138 mm[Hg] Susannah Capellan MD Work Phone: [facility] 07-05-2023 12:58-0400 Body height 168.9 cm Susannah Capellan MD Work Phone: [facility] 07-05-2023 12:58-0400 Body temperature 97.7 [degF] Susannah Capellan MD Work Phone: [facility] 07-05-2023 12:58-0400 Body weight 60.44 kg Susannah Capellan MD Work Phone: [facility] 07-05-2023 12:58-0400 Heart rate 78 /min Susannah Capellan MD Work Phone: [facility] 07-05-2023 12:58-0400 SaO2% (BldA) [Mass fraction] 97 % Susannah Capellan MD Work Phone: [facility] 03-23-2023 16:27-0400 Body height 167.6 cm Susannah Capellan MD Work Phone: [facility] 03-23-2023 16:27-0400 Body temperature 98.2 [degF] Susannah Capellan MD Work Phone: [facility] 03-23-2023 16:27-0400 Body weight 59.42 kg Susannah Capellan MD Work Phone: [facility] 03-23-2023 16:27-0400 Diastolic blood pressure 62 mm[Hg] Susannah Capellan MD Work Phone: [facility] 03-23-2023 16:27-0400 Heart rate 75 /min Susannah Capellan MD Work Phone: [facility] 03-23-2023 16:27-0400 SaO2% (BldA) [Mass fraction] 96 % Susannah Capellan MD Work Phone: [facility] 03-23-2023 16:27-0400 Systolic blood pressure 130 mm[Hg] Susannah Capellan MD Work Phone: [facility] 01-30-2023 09:47-0400 Body temperature 97.59 [degF] Kelsi Colby SOCCER COMMENTATOR.BUSINESS PROFESSOR Work Phone: [facility] 01-30-2023 09:47-0400 Body weight 60.78 kg Kelsi Colby SOCCER COMMENTATOR.BUSINESS PROFESSOR Work Phone: [facility] 01-30-2023 09:47-0400 Diastolic blood pressure 80 mm[Hg] Kelsi Colby SOCCER COMMENTATOR.BUSINESS PROFESSOR Work Phone: [facility] 01-30-2023 09:47-0400 Heart rate 82 /min Kelsi Colby SOCCER COMMENTATOR.BUSINESS PROFESSOR Work Phone: [facility] 01-30-2023 09:47-0400 Respiratory rate 16 /min Kelsi Colby SOCCER COMMENTATOR.BUSINESS PROFESSOR Work Phone: [facility] 01-30-2023 09:47-0400 SaO2% (BldA) [Mass fraction] 96 % Kelsi Colby SOCCER COMMENTATOR.BUSINESS PROFESSOR Work Phone: [facility] 01-30-2023 09:47-0400 Systolic blood pressure 144 mm[Hg] Kelsi Colby SOCCER COMMENTATOR.BUSINESS PROFESSOR Work Phone: [facility] 11-20-2022 11:00-0500 Body height 167.6 cm Le Reay SOCCER COMMENTATOR.BUSINESS PROFESSOR Work Phone: [facility] 11-20-2022 11:00-0500 Body weight 61.92 kg Le Reay SOCCER COMMENTATOR.BUSINESS PROFESSOR Work Phone: [facility] 11-20-2022 11:00-0500 Diastolic blood pressure 68 mm[Hg] Le Reay SOCCER COMMENTATOR.BUSINESS PROFESSOR Work Phone: [facility] 11-20-2022 11:00-0500 Heart rate 76 /min Le Reay SOCCER COMMENTATOR.BUSINESS PROFESSOR Work Phone: [facility] 11-20-2022 11:00-0500 SaO2% (BldA) [Mass fraction] 95 % Le Reay SOCCER COMMENTATOR.BUSINESS PROFESSOR Work Phone: [facility] 11-20-2022 11:00-0500 Systolic blood pressure 137 mm[Hg] Le Reay SOCCER COMMENTATOR.BUSINESS PROFESSOR Work Phone: [facility] 10-05-2022 15:00-0500 Body temperature 97.2 [degF] Ramandeep Bogner PA-C Work Phone: [facility] 10-05-2022 15:00-0500 Body weight 60.24 kg Ramandeep Bogner PA-C Work Phone: [facility] 10-05-2022 15:00-0500 Diastolic blood pressure 84 mm[Hg] Ramandeep Bogner PA-C Work Phone: [facility] 10-05-2022 15:00-0500 Heart rate 81 /min Ramandeep Bogner PA-C Work Phone: [facility] 10-05-2022 15:00-0500 Respiratory rate 20 /min Ramandeep Bogner PA-C Work Phone: [facility] 10-05-2022 15:00-0500 SaO2% (BldA) [Mass fraction] 97 % Ramandeep Nieto PA-C Work Phone: [facility] 10-05-2022 15:00-0500 Systolic blood pressure 162 mm[Hg] Ramandeep Nieto PA-C Work Phone: [facility] 10-01-2022 17:18-0500 Diastolic blood pressure 60 mm[Hg] Susannah Capellan MD Work Phone: [facility] 10-01-2022 17:18-0500 Systolic blood pressure 100 mm[Hg] Susannah Capellan MD Work Phone: [facility] [facility] 10-01-2022 14:24-0500 Body temperature 98.01 [degF] Susannah Capellan MD Work Phone: [facility] 10-01-2022 14:24-0500 Body weight 60.22 kg Susannah Capellan MD Work Phone: [facility] 10-01-2022 14:24-0500 Heart rate 94 /min Susannah Capellan MD Work Phone: [facility] 10-01-2022 14:24-0500 SaO2% (BldA) [Mass fraction] 96 % Susannha Capellan MD Work Phone: [facility] 09-02-2022 13:33-0500 Body height 168.9 cm Paul Bautista MD Work Phone: [facility] 09-02-2022 13:33-0500 Body weight 60.33 kg Paul Bautista MD Work Phone: [facility] 09-02-2022 13:33-0500 Diastolic blood pressure 75 mm[Hg] Paul Bautista MD Work Phone: [facility] 09-02-2022 13:33-0500 Heart rate 70 /min Paul Bautista MD Work Phone: [facility] 09-02-2022 13:33-0500 Respiratory rate 15 /min Paul Bautista MD Work Phone: [facility] 09-02-2022 13:33-0500 SaO2% (BldA) [Mass fraction] 97 % Paul Bautista MD Work Phone: [facility] 09-02-2022 13:33-0500 Systolic blood pressure 154 mm[Hg] Paul Bautista MD Work Phone: [facility] 07-16-2022 11:54-0400 Diastolic blood pressure 77 mm[Hg] Susannah Capellan MD Work Phone: [facility] 07-16-2022 11:54-0400 Systolic blood pressure 177 mm[Hg] Susannah Capellan MD Work Phone: [facility] 07-16-2022 11:37-0400 Body temperature 98.01 [degF] Susannah Capellan MD Work Phone: [facility] 07-16-2022 11:37-0400 Body weight 62.26 kg Susannah Capellan MD Work Phone: [facility] 07-16-2022 11:37-0400 Heart rate 68 /min Susannah Capellan MD Work Phone: [facility] 07-16-2022 11:37-0400 SaO2% (BldA) [Mass fraction] 97 % Susannah Capellan MD Work Phone: [facility] 05-18-2022 09:46-0400 Body height 167.6 cm Paul Bautista MD Work Phone: [facility] 05-18-2022 09:46-0400 Body weight 62.32 kg Paul Bautista MD Work Phone: [facility] 05-18-2022 09:46-0400 Diastolic blood pressure 89 mm[Hg] Paul Bautista MD Work Phone: [facility] 05-18-2022 09:46-0400 Heart rate 64 /min Paul Bautista MD Work Phone: [facility] 05-18-2022 09:46-0400 SaO2% (BldA) [Mass fraction] 99 % Pual Bautista MD Work Phone: [facility] 05-18-2022 09:46-0400 Systolic blood pressure 187 mm[Hg] Paul Bautista MD Work Phone: [facility] 05-14-2022 10:28-0400 Body height 167.6 cm Allie Choudhary MD Work Phone: [facility] 05-14-2022 10:28-0400 Body weight 63.41 kg Allie Choudhary MD Work Phone: [facility] 05-14-2022 10:28-0400 Diastolic blood pressure 81 mm[Hg] Allie Choudhary MD Work Phone: [facility] 05-14-2022 10:28-0400 Heart rate 70 /min Allie Choudhary MD Work Phone: [facility] 05-14-2022 10:28-0400 Systolic blood pressure 176 mm[Hg] Allie Choudhary MD Work Phone: [facility] 04-17-2022 11:00-0400 Body height 166 cm Rosendo Rodgers MD Work Phone: [facility] 04-17-2022 11:00-0400 Body temperature 97.2 [degF] Rosendo Rodgers MD Work Phone: [facility] 04-17-2022 11:00-0400 Body weight 60.78 kg Rosendo Rodgers MD Work Phone: [facility] 04-17-2022 11:00-0400 Diastolic blood pressure 65 mm[Hg] Rosendo Rodgers MD Work Phone: [facility] 04-17-2022 11:00-0400 Heart rate 76 /min Rosendo Rodgers MD Work Phone: [facility] 04-17-2022 11:00-0400 Respiratory rate 20 /min Rosendo Rodgers MD Work Phone: [facility] 04-17-2022 11:00-0400 SaO2% (BldA) [Mass fraction] 98 % Rosendo Rodgers MD Work Phone: [facility] 04-17-2022 11:00-0400 Systolic blood pressure 134 mm[Hg] Rosendo Rodgers MD Work Phone: [facility] 04-14-2022 11:40-0400 Diastolic blood pressure 97 mm[Hg] Susannah Capellan MD Work Phone: [facility] 04-14-2022 11:40-0400 Systolic blood pressure 171 mm[Hg] Susannah Capellan MD Work Phone: [facility] 04-14-2022 11:23-0400 Body height 166.4 cm Susannah Capellan MD Work Phone: [facility] 04-14-2022 11:23-0400 Body temperature 97.81 [degF] Susannah Capellan MD Work Phone: [facility] 04-14-2022 11:23-0400 Body weight 61.24 kg Susannah Capellan MD Work Phone: [facility] 04-14-2022 11:23-0400 Heart rate 80 /min Susannah Capellan MD Work Phone: [facility] 04-14-2022 11:23-0400 SaO2% (BldA) [Mass fraction] 97 % Susannah Capellan MD Work Phone: [facility] Encounters Encounter Date Encounter Type Care Provider Facility Start: 08-31-2025 ambulatory ONUR LAUGHLIN Facility:[facility] Start: 07-31-2025 ambulatory AGUSTÍN AGUILAR Facility:[facility] Start: 07-27-2025 End: 08-17-2025 ambulatory DA LAUGHLIN Facility:[facility] Start: 07-24-2025 ambulatory SUSANNAH CAPELLAN Facil ity:[facility] Start: 07-18-2025 ambulatory SUSANNAH CAPELLAN Facil ity:[facility] Start: 07-18-[address] Caitlin Capellan MD Work Phone: -Pulmonary Rehab Work Phone: Start: 07-18-2025 End: 07-18-2025 ambulatory SUSANNAH CAPELLAN Facility:[facility] Start: 07-17-2025 ambulatory UNKNOWN PROVIDER Facili ty:[facility] Start: 07-17-2025 End: 07-17-[address] Susannah Capellan MD Work Phone: -Pulmonary Rehab Work Phone: Start: 07-17-2025 End: 07-17-[address] Susannah Capellan MD Work Phone: -Pulmonary Rehab Start: 07-16-2025 End: 07-16-2025 ambulatory SUSANNAH CAPELLAN Facility:[facility] Start: 07-14-2025 End: 07-14-2025 ambulatory SUSANNAH CAPELLAN Facility:[facility] Start: 07-11-[address] Susannah Capellan MD Work Phone: -Pulmonary Rehab Work Phone: Start: 07-11-2025 End: 07-11-2025 ambulatory DA LAUGHLIN Facility:[facility] Start: 07-06-2025 End: 07-06-2025 ambulatory SUSANNAH CAPELLAN Facility:[facility] Start: 06-29-2025 End: 06-29-2025 ambulatory Lucius Patricio MD Work Phone: Pulmonology [facility] Comment on above: Pulmonary Rehab Start: 06-28-2025 End: 06-28-2025 Telephone encounter Hyacinth Zheng MD Work Phone: Mammography Comment on above: Mammogram Result Eladio l Back Start: 06-26-2025 End: 06-26-2025 ambulatory Jitendra Escobedo APRN.CNP Work Phone: [facility] Comment on above: Incomplete Imaging Start: 06-26-2025 End: 06-26-2025 E-mail encounter from caregiver Jitendra Escalonakorey MCKEON Work Phone: [facility] Start: 06-25-2025 End: 06-25-2025 Office outpatient visit 25 minutes Susannah Capellan MD Work Phone: [facility] Comment on above: 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 (Primary Dx); 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 disease, or chronic kidney disease (HCC); Kidney lesion, caddo, left; IPMN (intraductal papillary mucinous neoplasm); Hyperkalemia; Hypoxia; Left hip pain; Trochanteric bursitis of left hip; Essential hypertension; Asymptomatic postmenopausal status; longterm (current) use of anticoagulants Start: 06-25-2025 End: 06-25-2025 ambulatory SUSANNAH CAPELLAN Facility:[facility] Start: 06-22-2025 End: 06-22-2025 Subsequent hospital visit by physician [facility] Work Phone: Mammography Comment on above: Encounter for screen ing mammogram for high-risk patient [Z12.31] Start: 06-22-2025 End: 06-22-2025 Patient encounter procedure Jitendra Escobedo APRN.CNP Work Phone: [facility] Comment on above: Abnormal mammogram ( Primary Dx); Encounter for screening mammogram for high-risk patient; Fibrocystic breast changes of both breasts; Dense breast; Personal history of breast cancer Start: 06-22-2025 End: 06-22-2025 ambulatory SUSANNAH CAPELLAN Facility:[facility] Start: 06-16-2025 End: 06-16-2025 Refill Susannah Capellan MD Work Phone: [facility] Comment on above: Refill Request Start: 06-08-2025 End: 06-08-2025 Patient encounter procedure Pulm Lab [facility] Work Phone: PULM LAB [facility] Comment on above: Chronic obstructive pulmonary disease, unspecified COPD type (HCC) (Primary Dx) Start: 06-08-2025 End: 06-11-2025 ambulatory Susannah Capellan MD Work Phone: Internal [facility] Comment on above: Orthopedic Start: 06-07-2025 End: 06-07-2025 ambulatory SUSANNAH CAPELLAN Facility:[facility] Start: 06-07-2025 End: 06-07-2025 Telephone encounter Lucius Patricio MD Work Phone: Pulmonary Medicine Start: 06-05-2025 End: 06-05-2025 Subsequent hospital visit by physician Xr [facility] Work Phone: Radiology Comment on above: Pain of left hip [M2 5.552] Start: 06-05-2025 End: 06-05-2025 Office outpatient visit 15 minutes Marco Doan APRN.BUSINESS PROFESSOR Work Phone: [facility]gent [facility] Comment on above: Pain of left hip (Pr imary Dx) Start: 06-05-2025 End: 06-05-2025 ambulatory MARCO DOAN Facility:[facility] Start: 06-05-2025 End: 06-05-2025 Follow-up encounter Marco Doan APRN.BUSINESS PROFESSOR Work Phone: [facility] Comment on above: Results Start: 06-04-2025 End: 06-06-2025 ambulatory Lucius Patricio MD Work Phone: Pulmonology [facility] Comment on above: Pulmonary rehab Start: 06-01-2025 End: 06-05-2025 ambulatory Susannah Capellan MD Work Phone: Internal [facility] Start: 06-01-2025 End: 06-05-2025 Patient encounter procedure Susannah Capellan MD Work Phone: [facility] Comment on above: Recommended appointm ents Start: 05-31-2025 End: 05-31-2025 Patient encounter procedure Lucius Patricio MD Work Phone: Pulmonology [facility] Comment on above: Chronic obstructive pulmonary disease, unspecified COPD type (HCC) (Primary Dx) Start: 05-31-2025 End: 05-31-2025 ambulatory SUSANNAH CAPELLAN Facility:[facility] Start: 05-25-2025 End: 05-25-2025 ambulatory SUSANNAH CAPELLAN Facility:[facility] Start: 05-21-2025 End: 05-21-2025 Subsequent hospital visit by physician [facility] Work Phone: Radiology Comment on above: Acute deep vein thro mbosis (DVT) of calf muscle vein of left lower extremity (HCC) [I82.462] Start: 05-21-2025 End: 05-21-2025 ambulatory SUSANNAH CAEPLLAN Facility:[facility] Start: 05-18-2025 End: 06-11-2025 Telephone encounter Susannah Capellan MD Work Phone: Pre Anesthesia Comment on above: Pulse Ox report (Enli t Smarter) Start: 05-18-2025 ambulatory SUSANNAH CAPELLAN Facil ity:[facility] Start: 05-18-2025 End: 05-18-2025 Subsequent hospital visit by physician [facility] Radio [facility] (I-Stat/1.5t) Work Phone: Radiology Comment on above: Other specified diso rders of kidney and ureter [N28.89] Start: 05-14-2025 End: 05-14-2025 Telemedicine consultation with patient Susannah Capellan MD Work Phone: Internal [facility] Start: 05-14-2025 End: 05-14-2025 Telephone encounter Susannah Capellan MD Work Phone: Internal [facility] Comment on above: Acquired complex cys t of kidney (Primary Dx); Other specified disorders of kidney and ureter; 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 disease, or chronic kidney disease (HCC); Atherosclerosis of caddo coronary artery of caddo heart without angina pectoris; Screening for depression; Encounter for screening examination for other mental health and behavioral disorders; Left ventricular diastolic dysfunction, NYHA class 1; Mild pulmonary hypertension (HCC); History of tobacco use; Hypoxia Start: 05-14-2025 End: 05-14-2025 ambulatory SUSANNAH CAPELLAN Facility:[facility] Start: 05-09-2025 End: 05-09-2025 [facility] Start: 05-09-2025 End: 05-09-2025 Subsequent hospital visit by physician [facility] Work Phone: Radiology Comment on above: Kidney lesion, nativ e, left [N28.9] Start: 05-07-2025 End: 05-07-2025 Telephone encounter Susannah Capellan MD Work Phone: [facility] Comment on above: Orders Start: 05-07-2025 End: 05-07-2025 Patient encounter procedure Paul Bautista MD Work Phone: Cardiology Comment on above: Chronic diastolic (c ongestive) heart failure (HCC) (Primary Dx) Start: 05-07-2025 End: 05-07-2025 ambulatory SUSANNAH CAPELLAN Facility:[facility] Start: 04-30-2025 End: 05-02-2025 ambulatory Susannah Capellan MD Work Phone: [facility] Comment on above: Visit 04/27 with [employer] Start: 04-30-2025 End: 04-30-2025 Telephone encounter Susannah Capellan MD Work Phone: [facility] Comment on above: Received Outside [facility] ([facility]) Start: 04-29-2025 Non-patient / Non-visit Dr. Jalyn Breaux MD -[facility] Work Phone: Start: 04-28-2025 Non-patient / Non-visit Dr. Jalyn Breaux MD -[facility] Work Phone: Start: 04-27-2025 ambulatory Ariella Breaux Facility :[facility] Start: 04-27-2025 End: 04-29-2025 Evaluation and management of inpatient Dr. Adilson Melchor DO -Progressive Care Unit Work Phone: Start: 04-27-2025 End: 04-27-2025 Telephone encounter Susannah Capellan MD Work Phone: [facility] Comment on above: Patient Update Start: 04-27-2025 End: 04-27-2025 Office outpatient visit 40 minutes Eve Daniel PA-C Work Phone: [facility] Comment on above: Dizziness (Primary D x); Hypoxia Start: 04-27-2025 End: 04-27-2025 ambulatory SUSANNAH CAPELLAN Facility:[facility] Start: 04-17-2025 End: 04-17-2025 Patient encounter procedure Susannah Capellan MD Work Phone: [facility] Comment on above: NSTEMI (non-ST eleva therese myocardial infarction) (HCC) (Primary Dx); Pulmonary nodules; Lung nodules; Acute deep vein thrombosis (DVT) of calf muscle vein of left lower extremity (HCC); Demand ischemia (HCC); Nausea; Dizziness Start: 04-17-2025 End: 04-17-2025 ambulatory SUSANNAH CAPELLAN Facility:[facility] Start: 04-17-2025 End: 04-17-2025 Telephone encounter Susannah Capellan MD Work Phone: [facility] Start: 04-16-2025 End: 04-17-2025 ambulatory Susannah Capellan MD Work Phone: [facility] Comment on above: Medication Problem ( Eliquis 5 mg, take one tablet twice daily) Start: 04-12-2025 End: 04-12-2025 ambulatory Abena Aviles RN [facility] Start: 04-12-2025 End: 04-12-2025 Telephone encounter Susannah Capellan MD Work Phone: [facility] Comment on above: Appointment Start: 04-11-2025 Non-patient / [facility] Work Phone: Start: 04-10-2025 Non-patient / Non-visit [facility]. [facility] Work Phone: Start: 04-10-2025 End: 04-10-2025 Telephone encounter Paul Bautista MD Work Phone: Cardiology Comment on above: Counseling (Patient was taken to the ED overnight. Has had what they think is a heart attack. They want to do a cardiac cath.) Start: 04-10-2025 ambulatory Richard Angelo Facility:[facility] Start: 04-10-2025 Non-patient / Non-visit Dr. Richard nielsen MD -[facility] Start: 04-10-2025 ambulatory Susannah Capellan Facilit y:[facility] Start: 04-10-2025 Non-patient / Non-visit Dr. Rosa SERRANO -[facility] Start: 04-09-2025 ambulatory Bertha Johnson ty:[facility] Start: 04-09-2025 End: 04-11-2025 Evaluation and management of inpatient Dr. Bertha Godoy DO [facility] Work Phone: Start: 04-04-2025 End: 04-04-2025 [...] disease (HCC) Start: 04-03-2025 End: 04-03-2025 ambulatory SUSANNAH CAPELLAN Facility:[facility] Start: 04-03-2025 End: 04-03-2025 ambulatory SUSANNAH CAPELLAN Facility:[facility] Start: 04-02-2025 End: 04-05-2025 Telephone encounter Susannah Capellan MD Work Phone: [facility] Comment on above: Forms ([facility]) Start: 03-27-2025 End: 03-27-2025 ambulatory SUSANNAH CAPELLAN Facility:[facility] Start: 03-27-2025 End: 03-27-2025 Patient encounter procedure Susannah Capellan MD Work Phone: [facility] Comment on above: 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 (Primary Dx); Chronic [...] hypertension Start: 02-01-2025 End: 02-01-2025 ambulatory SUSANNAH CAPELLAN Facility:[facility] Start: 02-01-2025 End: 02-05-2025 Follow-up encounter Susannah Capellan MD Work Phone: [facility] Comment on above: Results Start: 01-27-2025 End: 01-29-2025 ambulatory Susannah Capellan MD Work Phone: [facility] Comment on above: Schedule for blood t ests Start: 01-15-2025 End: 01-19-2025 Telephone encounter Susannah Capellan MD Work Phone: [facility] Comment on above: Orders ([facility]) Start: 01-05-2025 End: 01-09-2025 Refill Susannah Capellan MD Work Phone: [facility] Comment on above: Refill Request Start: 11-17-2024 End: 11-17-2024 ambulatory SUSANNAH CAPELLAN Facility:[facility] Start: 11-15-2024 End: 11-16-2024 Telephone encounter Susannah Capellan MD Work Phone: [facility] Start: 10-24-2024 End: 10-24-2024 Telephone encounter Susannah Capellan MD Work Phone: [facility] Comment on above: Orders; Appointment Start: 10-08-2024 End: 10-09-2024 Refill Susannah Capellan MD Work Phone: [facility] Comment on above: Refill Request Start: 09-13-2024 End: 09-13-2024 Orders Only Paul Bautista MD Work Phone: Cardiology Comment on above: Chronic diastolic (c ongestive) heart failure (HCC) (Primary Dx) Start: 08-29-2024 End: 08-30-2024 Refill Susannah Capellan MD Work Phone: [facility] Comment on above: Refill Request Start: 07-26-2024 End: 08-01-2024 Patient encounter procedure Allie Choudhary MD Work Phone: Dermatology Comment on above: Neoplasm of unspecif ied behavior of bone, soft tissue, and skin (Primary Dx); Telogen effluvium; Seborrheic dermatitis; Hx of nonmelanoma skin cancer; Photoaging of skin; Personal history of malignant neoplasm of breast; Chronic diastolic (congestive) heart failure (HCC) Start: 07-17-2024 End: 07-17-2024 Patient encounter procedure Joshua Godinez MD Work Phone: [facility] Comment on above: Urgency of urination (Primary Dx) Start: 07-14-2024 End: 07-14-2024 Subsequent hospital visit by physician Bharati [facility] Work Phone: Radiology Comment on above: Exertional dyspnea [ R06.09] Start: 07-13-2024 End: 07-13-2024 Patient encounter procedure Win Martinez MD Work Phone: [facility] Comment on above: 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 4 chronic kidney disease, or chronic kidney disease (HCC) (Primary Dx) Start: 07-11-2024 End: 01-18-2025 ambulatory Susannah Capellan MD Work Phone: [facility] Comment on above: Possible heart issue s? Breathing Problem Start: 07-03-2024 End: 07-03-2024 Telephone encounter Susannah Capellan MD Work Phone: [facility] Comment on above: Patient Question (No thing was available for medicare wellness until February, AVS said to see in 4 months, offered patient to schedule with Eve, she did not want to, wanted to know if scheduling her for February was okay with you? She asked me to send this to you.) Start: 07-03-2024 End: 07-03-2024 Office outpatient visit 25 minutes Susannah Capellan MD Work Phone: [facility] Comment on above: 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 4 chronic kidney disease, or chronic kidney disease (HCC) (Primary Dx); Exertional dyspnea; Acute cystitis without hematuria Start: 06-26-2024 End: 06-26-2024 Office outpatient visit 15 minutes Emilee Crump APRN.BUSINESS PROFESSOR Work Phone: [facility] Comment on above: Urinary frequency (P rimary Dx) Start: 06-26-2024 End: 06-26-2024 ambulatory Susannah Capellan MD Work Phone: [facility] Comment on above: burning and pressure with urination Start: 06-11-2024 End: 06-11-2024 Patient encounter procedure Kelsi Colby APRN.BUSINESS PROFESSOR Work Phone: [facility] Comment on above: Cellulitis of left a rm (Primary Dx) Start: 05-15-2024 Refill Susannah buchanan MD Work Phone: [facility] Comment on above: Refill Request Start: 05-14-2024 ambulatory Susannah buchanan MD Work Phone: [facility] Comment on above: Ondansetron ODT 4mg Refill Request Start: 04-10-2024 Telephone encounter Susannah Capellan MD Work Phone: [facility] Start: 04-08-2024 ambulatory Susannah buchanan MD Work Phone: [facility] Comment on above: Blood Pressure numbe rs Start: 03-30-2024 End: 03-30-2024 Patient encounter procedure Paul Bautista MD Work Phone: Cardiology Comment on above: Chronic diastolic (c ongestive) heart failure (HCC) (Primary Dx) Start: 03-28-2024 End: 03-28-2024 Office outpatient visit 25 minutes Susannah Capellan MD Work Phone: [facility] Comment on above: Situational depressi on (Primary Dx); Cerebral microvascular disease; Essential hypertension; Epigastric abdominal tenderness without rebound tenderness; 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 disease, or chronic kidney disease (HCC); Collagenous colitis; 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 Department Start: 01-07-2024 End: 01-07-2024 Patient encounter procedure Jitendra Escobedo APRN.BUSINESS PROFESSOR Work Phone: [facility] Comment on above: Abnormal mammogram ( Primary Dx); Fibrocystic breast changes of both breasts; Dense breast; Personal history of breast cancer Start: 01-07-2024 End: 01-07-2024 Subsequent hospital visit by physician [facility] Work Phone: Mammography Comment on above: Encounter for screen ing mammogram for breast cancer [Z12.31] Start: 01-03-2024 ambulatory Susannah buchanan MD Work Phone: [facility] Start: 01-03-2024 Patient encounter procedure Susannah Capellan MD Work Phone: [facility] Comment on above: Consult to [facility] Start: 12-31-2023 Orders Only Jitendra nair SOCCER COMMENTATOR.BUSINESS PROFESSOR Work Phone: [facility] Comment on above: Encounter for screen ing mammogram for breast cancer (Primary Dx) Start: 12-31-2023 Refill Susannah buchanan MD Work Phone: Internal [facility] Comment on above: Refill Request Start: 12-20-2023 ambulatory Susannah buchanan MD Work Phone: [facility] Comment on above: Mammogram schedule Start: 11-06-2023 End: 11-06-2023 Emergency department patient visit [facility] Work Phone: Start: 10-18-2023 End: 09-06-2024 Telephone encounter Virgil Gomez MD Work Phone: Gastroenterology Start: 10-07-2023 Refill Susannah buchanan MD Work Phone: Internal [facility] Comment on above: Refill Request (Clon idine and Labetalol) Start: 09-30-2023 End: 09-30-2023 Patient encounter procedure Paul Bautista MD Work Phone: Cardiology Comment on above: Chronic diastolic (c ongestive) heart failure (HCC) (Primary Dx); Stage 3a chronic kidney disease (HCC) Start: 09-20-2023 ambulatory Bertha Ayers ms, PA-C Work Phone: [facility] [place] Comment on above: Physical therapy Start: 09-10-2023 End: 09-10-2023 ambulatory Liam Bull PT Work Phone: [facility] Comment on above: Chronic thoracic [place] k pain, unspecified back pain laterality (Primary Dx); Degenerative scoliosis in adult patient; 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 Start: 09-08-2023 End: 09-08-2023 ambulatory Shalini Lopez [facility] Work Phone: [facility] Comment on above: Chronic diastolic (c ongestive) heart failure (HCC) (Primary Dx) Start: 09-08-2023 End: 09-08-2023 Telemedicine consultation with patient Shalini Lopez [facility] Work Phone: [facility] Start: 09-02-2023 ambulatory Nadja Garza [employer] Comment on above: Population Health Na vigation Outreach (SGLT2) Start: 08-30-2023 End: 08-30-2023 ambulatory Liam Bull PT Work Phone: [facility] Comment on above: Chronic thoracic [place] k pain, unspecified back pain laterality (Primary Dx); 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; 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 Start: 08-04-2023 End: 08-04-2023 Subsequent hospital visit by physician Bone Density Main A21 2 Radiology Comment on above: Asymptomatic postmen opausal state [Z78.0] Start: 07-26-2023 End: 07-26-2023 Patient encounter procedure Cristina Lara AUD Work Phone: Audiology Comment on above: Sensorineural hearin g loss, bilateral (Primary Dx) Start: 07-08-2023 End: 07-08-2023 Patient encounter procedure [facility] Work Phone: [facility] Start: 07-08-2023 End: 07-08-2023 Subsequent hospital visit by physician [facility] Work Phone: Nuclear Medicine Comment on above: Medicare annual well ness visit, subsequent [Z00.00] Start: 07-05-2023 Telephone encounter Susannah Capellan MD Work Phone: [facility] [place] Start: 07-05-2023 End: 07-05-2023 Patient encounter procedure Susannah Capellan MD Work Phone: [facility] [place] Comment on above: Medicare annual well ness visit, subsequent (Primary Dx); Asymptomatic postmenopausal state; Thoracogenic scoliosis, unspecified spinal region; Chronic thoracic back pain, unspecified back pain laterality; Decreased hearing of both ears; Anemia due to stage 3b chronic kidney disease (HCC); Epigastric pain; Hypothyroidism, unspecified type Start: 04-08-2023 End: 04-08-2023 ambulatory [facility] Comment on above: Acute right-sided th oracic back pain (Primary Dx) Start: 04-02-2023 End: 04-02-2023 ambulatory Arrhythmia Monitoring Lab Work Phone: Cardiology Comment on above: Event (ZIO PATCH) Start: 04-01-2023 End: 04-01-2023 Subsequent hospital visit by physician [facility] Work Phone: Radiology Comment on above: Epigastric abdominal tenderness without rebound tenderness [R10.816] Start: 03-23-2023 End: 03-23-2023 Office outpatient visit 15 minutes Susannah Capellan MD Work Phone: [facility] [place] Comment on above: Rib pain on right si de (Primary Dx); Epigastric abdominal tenderness without rebound tenderness; Thoracogenic scoliosis, unspecified spinal region Start: 03-08-2023 ambulatory Susannah buchanan MD Work Phone: [facility] Comment on above: Back Pain ([place]) Start: 03-08-2023 End: 03-08-2023 Subsequent hospital visit by physician Xr [facility] Work Phone: Radiology Comment on above: Acute right-sided th oracic back pain [M54.6] Start: 02-20-2023 ambulatory Susannah buchanan MD Work Phone: Internal [facility] Comment on above: medical massages Start: 01-30-2023 End: 01-30-2023 Patient encounter procedure Kelsi Colby APRN.BUSINESS PROFESSOR Work Phone: [facility] Comment on above: Difficulty swallowin g pills (Primary Dx); Pharyngitis, unspecified etiology Start: 01-15-2023 End: 01-15-2023 Subsequent hospital visit by physician Xr [facility] Work Phone: Radiology Comment on above: Exertional dyspnea [ R06.09] Start: 01-06-2023 Documentation procedure Mammog yang Coordinator [facility] Start: 01-06-2023 Letter encounter Mammography Coordinator [facility] Start: 01-05-2023 End: 01-05-2023 Patient encounter procedure Jitendra Escobedo SOCCER COMMENTATOR.BUSINESS PROFESSOR Work Phone: [facility] Comment on above: Fibrocystic breast c hanges of both breasts (Primary Dx); Dense breast; Personal history of breast cancer; Encounter for screening mammogram for breast cancer Start: 01-05-2023 End: 01-05-2023 Subsequent hospital visit by physician [facility] Work Phone: Mammography Comment on above: Encounter for screen ing mammogram for breast cancer [Z12.31] Start: 11-24-2022 End: 11-24-2022 Patient encounter procedure Win Maria MD Work Phone: Orthopaedics Comment on above: Trigger thumb of lef t hand (Primary Dx) Start: 11-20-2022 End: 11-20-2022 Patient encounter procedure Le Orourke JUSTEN.BUSINESS PROFESSOR Work Phone: Cardiology Comment on above: Chronic heart failur e with preserved ejection fraction (HCC) (Primary Dx) Start: 10-29-2022 Telephone encounter Susannah Capellan MD Work Phone: Internal [facility] Comment on above: Results Start: 10-08-2022 Telephone encounter Sandhya Martinez APRN.BUSINESS PROFESSOR Work Phone: [facility] Comment on above: Results Start: 10-08-2022 End: 10-08-2022 Subsequent hospital visit by physician [facility] Work Phone: Radiology Comment on above: Urinary retention [R 33.9] Start: 10-05-2022 End: 10-05-2022 Office outpatient visit 15 minutes Ramandeep Nieto PA-C Work Phone: [facility] Comment on above: Pain with urination (Primary Dx) Start: 10-01-2022 End: 10-01-2022 Office outpatient visit 25 minutes Susannah Capellan MD Work Phone: Internal [facility] Comment on above: Stage 3 chronic [...] 10-01-2022 ambulatory Susannah buchanan MD Work Phone: [facility] Comment on above: Anemia Start: 10-01-2022 E-mail encounter fro m caregiver Susannah Capellan MD Work Phone: [facility] Start: 09-14-2022 End: 09-14-2022 ambulatory Rosendo Rodgers MD Work Phone: Hematology/Oncology Comment on above: Anemia due to stage 3b chronic kidney disease (HCC) (Primary Dx) Start: 09-14-2022 End: 09-14-2022 Telemedicine consultation with patient Rosendo Rodgers MD Work Phone: [facility] Start: 09-09-2022 Telephone encounter Rosendo watkins MD Work Phone: Hematology/Oncology Comment on above: Lab Orders; Care Adjunct Professor Of Voice rdinator - Other Start: 09-02-2022 End: 09-02-2022 Patient encounter procedure Paul Bautista MD Work Phone: Cardiology Comment on above: Chronic heart failur e with preserved ejection fraction (HFpEF) (HCC) (Primary Dx); Essential hypertension Start: 08-08-2022 End: 08-08-2022 ambulatory Immunization Clinic Nurse Fam Work Phone: [facility] [place] Comment on above: Arrived Start: 08-06-2022 Telephone encounter Tara rosales MD Work Phone: Allergy Comment on above: Refill Request Start: 07-22-2022 Refill Allie Choudhary MD Work Phone: Dermatology Start: 07-16-2022 End: 07-16-2022 Office outpatient visit 15 minutes Susannah Capellan MD Work Phone: [facility] [place] Comment on above: Encounter for immuni zation (Primary Dx); 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 disease, or chronic kidney disease (HCC) Start: 06-01-2022 ambulatory Dennys Guzman MD Work Phone: Kidney Medicine [facility] Start: 06-01-2022 Patient encounter procedure Dennys Guzman MD Work Phone: [facility] Start: 2022 ambulatory Paul dawson MD [...] Start: 05-14-2022 End: 05-14-2022 Patient encounter procedure Allie Choudhary MD Work Phone: Dermatology Comment on [...] 04-14-2022 End: 04-14-2022 Patient encounter procedure Susannah Capellan MD Work Phone: [facility] [place] Comment on above: Anemia, unspecified type (Primary Dx); 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 disease, or chronic kidney disease (HCC); Hypothyroidism, unspecified type Start: 03-24-2022 End: 03-24-2022 Patient encounter procedure Win Maria MD Work Phone: Orthopaedics Comment on above: Primary osteoarthrit is of first carpometacarpal joint of left hand (Primary Dx) Start: 02-19-2022 Telephone encounter Susannah Capellan MD Work Phone: Family [facility] Comment on above: Results Start: 02-17-2022 End: 02-17-2022 Nursing evaluation of patient and report Leigh Abreu RN Work Phone: Orthopaedics Comment on above: Primary osteoarthrit is of first carpometacarpal joint of left hand (Primary Dx) Start: 02-10-2022 End: 02-10-2022 ambulatory Kelsi Webbtz OT/L [facility] Comment on above: Thumb pain, left (Pr imary Dx); Primary osteoarthritis of first carpometacarpal joint of left hand Start: 02-03-2022 End: 02-03-2022 ambulatory Starla Helms OT/L Work Phone: [facility] Occupational Therapy Comment on above: Thumb pain, left (Pr imary Dx); Primary osteoarthritis of first carpometacarpal joint of left hand Start: 01-27-2022 End: 01-27-2022 ambulatory Starla Helms OT/L Work Phone: [facility]ational [facility] Comment on above: Thumb pain, left (Pr imary Dx); NO SHOW Start: 01-20-2022 End: 01-20-2022 ambulatory Kelsi [place] OT/L [facility] Comment on above: Thumb pain, [...] End: 12-24-2020 Subsequent hospital visit by physician [facility] Work Phone: Radiology Comment on above: Left wrist pain [M25 .532] Start: 07-30-2020 End: 07-30-2020 Subsequent hospital visit by physician Clinic Imaging [facility]ammo [facility] Work Phone: Mammography Comment on above: Fibrocystic breast c hanges of both breasts [N60.11, N60.12] Start: 08-26-2018 Ambulatory SCOTTY GALDAMEZ Facility :[facility] Start: 02-07-2018 End: 02-07-[address] [facility] Start: 08-26-2017 End: 08-26-[address] [facility] Start: 10-05-2011 End: 09-19-2020 Patient encounter status Susannah Capellan MD Work Phone: [facility] Procedures Date Procedure Procedure Detail Performing Clinician Start: 06-05-2025 Radex hip unilateral with pelvis 2-3 views Marco Doan APRN.CNP Work Phone: Start: 05-21-2025 Dup-scan xtr veins unilateral/limited study Susannah Capellan MD Work Phone: Start: 05-14-2025 Adult depression scr eening assessment Susannah Capellan MD Work Phone: Start: 04-29-[address] Susannah Capellan MD Work Phone: Start: 04-27-2025 CT angiography of ch est with contrast Dr. Susannah Capellan MD Work Phone: Start: 04-27-[address] Susannah Capellan MD Work Phone: Start: 04-27-2025 X-ray of chest, PA a nd lateral views Dr. Susannah Capellan MD Work Phone: Start: 04-11-2025 CT angiography of ch est with contrast Dr. Susannah Capellan MD Work Phone: Start: 04-11-[address] Susannah Capellan MD Work Phone: Start: 04-10-2025 D-dimer assay, quantitative Dr. Susannah Capellan MD Work Phone: Comment on above: D-Dimer ELEVATED (>0 .49): Additional studies and clinicalassessments are indicated to conclude diagnosis of:Deep Vein Thrombosis (DVT) or Pulmonary Embolism (PE)CRITICAL VALUE CALLED TO [id number]/24/25 0506 Saurabh Singer.RESULTS READ BACK BY SAME. Start: 04-09-2025 Plain chest X-ray Dr. Megan Capellan MD Work Phone: Start: 04-09-[address] Susannah Capellan MD Work Phone: Start: 04-03-2025 Echo tthrc r-t 2d w/ wom-mode compl spec&colr d aPul Bautista MD Work Phone: Start: 07-26-2024 Level iv surg pathol ogy gross&microscopic exam Joanie House MD Work Phone: Start: 07-17-2024 Urnls dip stick/tabl et rgnt auto w/o microscopy Johan Brantley SOCCER COMMENTATOR.BUSINESS PROFESSOR Work Phone: Start: 07-14-2024 Radiologic exam chest 2 views Susannah Capellan MD Work Phone: Start: 07-03-2024 Ecg routine ecg w/le ast 12 lds i&r only [facility] Provider Start: 06-26-2024 Urnls dip stick/tabl et rgnt auto w/o microscopy Emilee Crump SOCCER COMMENTATOR.BUSINESS PROFESSOR Work Phone: Start: 03-28-2024 Adult depression scr eening assessment Susannah Capellan MD Work Phone: Start: 01-07-2024 Screening digital br east tomosynthesis bi Jitendra Escobedo SOCCER COMMENTATOR.BUSINESS PROFESSOR Work Phone: Start: 11-06-2023 SARS-CoV-2, Influenz a & RSV (PCR) Start: 11-06-2023 Plain chest X-ray Start: 08-21-2023 INFLUENZA VACCINE, A GE 6 MO - 64 YR, QUADRIVALENT (AFLURIA, FLULAVAL, FLUZONE) Fadi Martinez MD Work Phone: Start: 07-26-2023 HEARING TEST/AUDIOGRAM Cristina Lara AUD Work Phone: Start: 07-08-2023 Hepatobil syst imag inc gb w/pharma intervenj Susannah Capellan MD Work Phone: Start: 04-01-2023 Us abdominal real ti me w/image limited Susannah Capellan MD Work Phone: Start: 03-08-2023 Radex ribs uni w/pos teroant ch minimum 3 views Susannah Capellan MD Work Phone: Start: 01-15-2023 Radiologic exam chest 2 views Susannah Capellan MD Work Phone: Start: 01-05-2023 NICOLE SCREENING W MICHELLE Joan Escobedo SOCCER COMMENTATOR.BUSINESS PROFESSOR Work Phone: Start: 11-24-2022 Injection 1 tendon sheath/ligament aponeurosis Win Maria MD Work Phone: Start: 10-08-2022 Us retroperitoneal r eal time w/image complete Susannah Capellan MD Work Phone: Start: 10-05-2022 Urnls dip stick/tabl et rgnt auto w/o microscopy Sangita WILKERSONC Work Phone: Start: 08-08-2022 INFLUENZA VACCINE QUADRIVALENT 6 MO - 64 YRS IM Ameya Us DO Work Phone: Start: 07-16-2022 [employer] COVI D-19 BIVALENT BOOSTER VACCINE, AGE 12+ YR Susannah Capellan MD Work Phone: Start: 08-18-2021 NICOLE SCREENING W MICHELLE Mtz PA-C Work Phone: Start: 12-24-2020 Radex wrist complete minimum 3 views Sangita WILKERSONC Work Phone: Plan of Treatment Date Care Activity Detail Author Start: 12-27-2033 Urine microalbumin profile DTaP,Tdap,Td Vaccine (3 - Td or Tdap) [facility] Start: 05-21-2028 Diabetes Screening Diabetes Screening [facility] Start: 05-09-2028 Diabetes Screening Diabetes Screening [facility] Start: 02-02-2028 Diabetes Screening Diabetes Screening [facility] Start: 06-24-2027 Diabetes Screening Diabetes Screening [facility] Start: 11-02-2026 Diabetes Screening Diabetes Screening [facility] Start: 05-14-2026 Anxiety Screening Anxiety Screening [facility] Start: 05-14-2026 Depression Screening Depression Screening [facility] Start: 04-26-2026 DIABETES SCREEN DIABETES SCREEN [facility] Start: 04-26-2026 Diabetes Screening Diabetes Screening [facility] Start: 03-27-2026 Medicare Annual Wellness Visit Medicare Annual Wellness Visit [facility] Start: 01-08-2026 DIABETES SCREEN DIABETES SCREEN [facility] Start: 12-04-2025 End: 12-04-2025 Patient encounter procedure 12/04/2025 2:00 PM EST Office Visit [facility] [address] [place], [place] [address] Susannah Capellan MD [address] [place], [place] [id number] Return in about 4 months (around 10/25/2025). [facility] Comment on above: Return in about 4 months (around ). Start: 10-04-2025 End: 10-04-2025 Patient encounter procedure 10/04/2025 11:30 AM EST Office Visit Cardiology [address] [phone] Paul Bautista MD [address] [place] [address] DX: Chronic diastolic HF Cardiology Comment on above: DX: Chronic diastolic HF Start: 10-02-2025 End: 10-02-2025 Patient encounter procedure 10/02/2025 12:50 PM EST Office Visit Internal Medicine [place] [address] [place], [place] [phone] Susannah Capellan MD [address] [place], [place] [phone] Return in about 6 months (around 09/26/2025). [facility] Comment on above: Return in about 6 months (around 025). Start: 10-01-2025 End: 10-01-2025 Patient encounter procedure 10/01/2025 9:30 AM EST Appointment Radiology [address] [place] [phone] Asymptomatic postmenopausal status [Z78.0] Radiology Comment on above: Asymptomatic postmenopausal status [Z78. 0] Start: 09-18-2025 End: 09-18-2025 Patient encounter procedure 09/18/2025 11:30 AM EST Office Visit [facility] [address] [place], [place] [phone] Susannah Capellan MD [address] [place], [place] [phone] Return in about 4 months (around 10/25/2025). [facility] Comment on above: Return in about 4 months (around ). Start: 09-11-2025 DIABETES SCREEN DIABETES SCREEN [facility] Start: 09-07-2025 End: 09-07-2025 Patient encounter procedure 09/07/2025 1:00 PM EST Office Visit Cardiology [address] [place], [place] [phone] Paul Bautista MD [address] [place] [address] [email or web address] Cardiology Comment on above: [email or web address] Start: 09-04-2025 End: 09-04-2025 Patient encounter procedure 09/04/2025 10:45 AM EST Office Visit Orthopaedics [address] [place], [place] [phone] Win Maria MD [address] [place] [address] increasing sharp pain right hand Orthopaedics Comment on above: increasing sharp pain right hand Start: 08-31-2025 End: 08-31-2025 Patient encounter procedure 08/31/2025 10:00 AM EST Office Visit Pulmonary Medicine [address] [place], [place] [phone] Christin Munoz APRN.BUSINESS PROFESSOR [address] [facility] [place] [address] 3mo follow up Pulmonary Medicine Comment on above: 3mo follow up Start: 07-25-2025 End: 07-25-2025 Patient encounter procedure Mammogram Comment on above: NICOLE CHAMBERS W MICHELLE RIGHT CB PER KM US BREAST LTD RIGHT CB PER KM Start: 07-24-2025 End: 07-24-2025 Patient encounter procedure 07/24/2025 10:30 AM EDT Appointment Radiology [address] [place] [address] Acute deep vein thrombosis (DVT) of calf muscle vein of left lower extremity (HC... Radiology Comment on above: Acute deep vein thrombosis (DVT) of calf muscle vein of left lower extremity (HC... Start: 07-20-2025 End: 07-20-2025 Patient encounter procedure 07/20/2025 1:15 PM EDT Office Visit Orthopaedics [address] [address] Joe Mckeon MD [address] [phone] Consult Arthritis of left hip [M16.12] xrays in [facility] Orthopaedics Comment on above: Consult Arthritis of left hip [M16.12] x rays in [facility] Start: 07-19-2025 End: 07-19-2025 Patient encounter procedure 07/19/2025 11:30 AM EDT Office Visit Gastroenterology [address] [address] Virgil Gomez MD [address] [place] [address] Epigastric pain [R10.13] Gastroenterology Comment on above: Epigastric pain [R10.13] Start: 07-18-2025 End: 05-17-2026 CT Chest WO contrast CT CHEST WO IVCON Radiology Routine Lung nodules Expected: 07/18/2025, Expires: 05/17/2026 [facility] Work Phone: Comment on above: Expected: 07/18/2025, Expires: Start: 07-18-2025 End: 05-17-2026 US Lower extremity vein - left US DVT LOWER LEFT Radiology Routine Acute deep vein thrombosis (DVT) of calf muscle vein of left lower extremity (HCC) Expected: 07/18/2025, Expires: 05/17/2026 [facility] Comment on above: Expected: 07/18/2025, Expires: Start: 07-18-2025 End: 07-18-2025 Patient encounter procedure 07/18/2025 10:40 AM EDT Appointment Cat Scan [address] [place] [address] Lung nodules [R91.8] Cat Scan Comment on above: Lung nodules [R91.8] Start: 07-06-2025 End: 07-06-2025 Patient encounter procedure 07/06/2025 1:15 PM EDT Office Visit Orthopaedics [address] [phone] Joe Mckeon MD [address] [address] Consult Arthritis of left hip [M16.12] Orthopaedics Comment on above: Consult Arthritis of left hip [M16.12] Start: 06-27-2025 End: 06-27-2025 Patient encounter procedure 06/27/2025 10:30 AM EDT Office Visit Gastroenterology [address] [address] Virgil Gomez MD [address] [place] [address] Epigastric pain [R10.13] Gastroenterology Comment on above: Epigastric pain [R10.13] Start: 06-25-2025 End: 09-24-2025 Lipid 1996 panel - Serum or Plasma LIPID PANEL, FASTING Lab Routine 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 Start: 06-22-2025 End: 06-22-2025 Patient encounter procedure [facility] Comment on above: Annual breast exam Start: 06-18-2025 Influenza vaccination Influenza Vaccine (#1) [facility] Start: 06-14-2025 End: 09-13-2025 Basic metabolic 2000 panel - Serum or Plasma BASIC METABOLIC PANEL Lab Routine Other specified disorders of kidney and ureter 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 disease, or chronic kidney disease (HCC) Expected: 06/14/2025, Expires: 09/13/2025 [facility] Comment on above: Expected: 06/14/2025, Expires: Start: 06-07-2025 End: 06-07-2025 Patient encounter procedure Audiology Comment on above: 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] Other specified diso rders of kidney and ureter [N28.89] Start: 06-01-2025 DIABETES SCREEN DIABETES SCREEN [facility] Start: 05-31-2025 End: 05-31-2025 Patient encounter procedure 05/31/2025 11:00 AM EDT Office Visit Pulmonology [facility] [address] [place], [place] [phone] Lucius Patricio MD [address] [place] [address] new consult - hypoxia, shortness of breath, mild pulm htn Pulmonology [facility] Comment on above: new consult - hypoxia, shortness of daljit th, mild pulm htn Start: 2025 End: 2025 Patient encounter procedure Radiology Comment on above: increasing sharp pain right hand Start: 05-25-2025 End: 05-25-[address] [facility] Comment on above: DLCO spirometry lung volumes Start: 05-24-2025 End: 05-24-2025 Patient encounter procedure Molecular Im aging Comment on above: NM PET/CT CARDIAC PERF REST/STRESS Start: 05-21-2025 DIABETES SCREEN DIABETES SCREEN [facility] Start: 05-21-2025 End: 05-21-2025 Patient encounter procedure 05/21/2025 10:30 AM EDT Appointment Radiology [address] [place] [address] Acute deep vein thrombosis (DVT) of calf muscle vein of left lower extremity (HC... Radiology Comment on above: Acute deep vein thrombosis (DVT) of calf muscle vein of left lower extremity (HC... Start: 05-21-2025 End: 05-21-2025 ambulatory 05/21/2025 10:15 AM EDT Results Only [facility] [address] [place] [address] Lab [facility] Comment on above: Lab Start: 05-18-2025 End: 08-17-2025 Fibrin D-dimer FEU [Mass/volume] in Platelet poor plasma D-DIMER Lab Routine Acute deep vein thrombosis (DVT) of calf muscle vein of left lower extremity (HCC) Expected: 05/18/2025, Expires: 08/17/2025 [facility] Comment on above: Expected: 05/18/2025, Expires: Start: 05-18-2025 End: 05-17-2026 US Lower extremity vein - left US DVT LOWER LEFT Radiology Routine Acute deep vein thrombosis (DVT) of calf muscle vein of left lower extremity (HCC) Expected: 05/18/2025, Expires: 05/17/2026 [facility] Comment on above: Expected: 05/18/2025, Expires: Start: 05-18-2025 End: 05-18-2025 Patient encounter procedure 05/18/2025 12:30 PM EDT Appointment Radiology [address] [place] [address] MRI KIDNEY W/WO CONTRAST Radiology Comment on above: MRI KIDNEY W/WO CONTRAST Start: 05-14-2025 End: 06-08-2026 MR Kidney WO and W contrast IV MRI KIDNEY WO/W IVCON Radiology Routine Other specified disorders of kidney and ureter Expected: 05/14/2025, Expires: 06/08/2026 [facility] Work Phone: Comment on above: Expected: 05/14/2025, Expires: Start: 05-14-2025 End: 05-14-2025 ambulatory 05/14/2025 10:40 AM EDT [facility] [address] [place], [place] [address] Susannah Capellan MD [address] [place] [address] f/u [facility] Comment on above: f/u Start: 05-09-2025 End: 05-09-2025 Patient encounter procedure 05/09/2025 1:00 PM EDT Appointment Radiology [address] [place] [address] Kidney lesion, caddo, left [N28.9] Radiology Comment on above: Kidney lesion, caddo, left [N28.9] Start: 04-29-2025 Patient discharge [facility] Start: 04-28-2025 Referral to technical support agent [facility] Start: 04-28-2025 [facility] Start: 04-27-2025 Ambulation without limitation [facility] Start: 04-27-2025 Assessment of risk of venous thromboembolism [facility] Start: 04-27-2025 Insertion of catheter into peripheral vein [facility] Start: 04-27-2025 Measuring intake and output [facility] Start: 04-27-2025 Oxygen therapy [facility] Start: 04-27-2025 Providing care according to standard [facility] Start: 04-27-2025 Referral to service [facility] Start: 04-27-2025 [facility] Start: 04-27-2025 Following clinical pathway protocol [facility] Start: 04-27-2025 Verification routine [facility] Start: 04-27-2025 Admission procedure [facility] Start: 04-27-2025 Hospital admission, emergency, from emergency room, medical nature [facility] Start: 04-27-2025 End: 04-27-2025 [facility] Start: 04-27-2025 [facility] Start: 04-27-2025 End: 04-27-2025 Patient encounter procedure 04/27/2025 10:40 AM EDT Office Visit Internal Medicine [address] [address] Eve Daniel PA-C [address] [place] [id number] Hosp follow up (chest pain) [facility] Comment on above: Hosp follow up (chest pain) Start: 04-27-2025 Patient referral to dietitian [facility] Start: 04-24-2025 End: 04-24-2025 Patient encounter procedure 04/24/2025 11:00 AM EDT Appointment Radiology [address] [place] [address] Epigastric pain [R10.13] Radiology Comment on above: Epigastric pain [R10.13] Start: 04-23-2025 End: 04-23-2025 Patient encounter procedure 04/23/2025 11:00 AM EDT Office Visit [facility] [address] [place] [address] Susannah Capellan MD [address] [place] [address] hosp f/u [facility] Comment on above: hosp f/u Start: 04-17-2025 End: 04-17-2025 Patient encounter procedure 04/17/2025 3:50 PM EDT Office Visit [facility] [address] [place] [address] Susannah Capellan MD [address] [place] [address] dizziness pt feels dt eliquis [facility] Comment on above: dizziness pt feels dt eliquis Start: 04-13-2025 End: 04-13-2025 Patient encounter procedure 04/13/2025 4:00 PM EDT Office Visit Gastroenterology [address] [address] Virgil Gomez MD [address] [place] [address] Epigastric pain [R10.13] Gastroenterology Comment on above: Epigastric pain [R10.13] Start: 04-11-2025 Patient discharge [facility] Start: 04-10-2025 [facility] Start: 04-10-2025 Notification of physician [facility] Start: 04-10-2025 Patient education [facility] Start: 04-10-2025 Provision of activity privileges [facility] Start: 04-10-2025 Pulse taking [facility] Start: 04-10-2025 Taking patient vital signs [facility] Start: 04-10-2025 Wound care [facility] Start: 04-10-2025 [facility] Start: 04-10-2025 Referral to service [facility] Start: 04-10-2025 Ambulation without limitation [facility] Start: 04-10-2025 Assessment of risk of venous thromboembolism [facility] Start: 04-10-2025 Insertion of catheter into peripheral vein [facility] Start: 04-10-2025 Measuring intake and output [facility] Start: 04-10-2025 Providing care according to standard [facility] Start: 04-10-2025 Verification routine [facility] Start: 04-10-2025 [facility] Start: 04-10-2025 Oxygen therapy [facility] Start: 04-10-2025 Referral to technical support agent [facility] Start: 04-10-2025 Tobacco use cessation education [facility] Start: 04-10-2025 [facility] Start: 04-10-2025 Following clinical pathway protocol [facility] Start: 04-10-2025 Consultation [facility] Start: 04-10-2025 Patient referral to dietitian [facility] Start: 04-09-2025 Electrocardiographic procedure [facility] Start: 04-09-2025 Admission procedure [facility] Start: 04-09-2025 Hospital admission, emergency, from emergency room, medical nature [facility] Start: 04-09-2025 End: 04-09-2025 [facility] Start: 04-07-2025 End: 04-07-2025 Patient encounter procedure 04/07/2025 11:00 AM EDT Office Visit [facility] [address] [place], [place] [id number] Susannah Capellan MD [address] [place], [place] [address] medicare wellness [facility] Comment on above: medicare wellness Start: 04-03-2025 End: 07-03-2025 Basic metabolic 2000 panel - Serum or Plasma BASIC METABOLIC PANEL Lab Routine Chronic diastolic (congestive) heart failure (HCC) Expected: 04/03/2025, Expires: 07/03/2025 [facility] Comment on above: Expected: 04/03/2025, Expires: Start: 04-03-2025 End: 07-03-2025 Natriuretic peptide.B prohormone N-Terminal [Mass/volume] in Serum or Plasma NT PRO BNP Lab Routine Chronic diastolic (congestive) heart failure (HCC) Expected: 04/03/2025, Expires: 07/03/2025 [facility] Work Phone: Comment on above: Expected: 04/03/2025, Expires: Start: 04-03-2025 End: 05-03-2026 PET+CT Heart WO contrast NM PET/CT CARDIAC PERF REST/STRESS Radiology Routine Encounter for screening for cardiovascular disorders Expected: 04/03/2025, Expires: 05/03/2026 [facility] Comment on above: Expected: 04/03/2025, Expires: Start: 04-03-2025 End: 04-03-2025 Patient encounter procedure Cardiology Comment on above: Heart Failure Start: 03-30-2025 End: 03-30-2025 Echocardiography ECHO Cardiology Routine Chronic diastolic (congestive) heart failure (HCC) Expected: 03/30/2025, Expires: 03/30/2025 [facility] Work Phone: Comment on above: Expected: 03/30/2025, Expires: Start: 03-28-2025 Anxiety Screening Anxiety Screening [facility] Start: 03-28-2025 Depression Screening Depression Screening 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 [facility] Comment on above: Return in about 4 months (around 11/02/19) for Medicare Wellness. Start: 01-16-2025 End: 01-16-2025 Patient encounter procedure 01/16/2025 9:50 AM EDT Office Visit [facility] [address] [place], [place] [id number] Susannah Capellan MD [address] [place], [place] [id number] medicare wellness [facility] Comment on above: medicare wellness Start: 11-15-2024 End: 02-14-2025 CBC W Auto Differential panel - Blood COMPLETE BLOOD COUNT AND DIFFERENTIAL Lab Routine 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) Expected: 11/15/2024, Expires: 02/14/2025 [facility] Work Phone: Comment on above: Expected: 11/15/2024, Expires: Start: 11-09-2024 End: 11-09-2024 Patient encounter procedure 11/09/2024 11:10 AM EST Office Visit [facility] [address] [place], [place] [id number] Susannah Capellan MD [address] [place], [place] [phone] Return in about 4 months (around 11/02/2024) for Medicare Wellness. [facility] Comment on above: Return in about 4 months (around 11/02/19) for Medicare Wellness. Start: 10-18-2024 Advance Directive Discussion Advance Directive Discussion [facility] Start: 07-27-2024 End: 07-27-2024 Patient encounter procedure 07/27/2024 10:30 AM EDT Office Visit Cardiology [address] [address] Exertional dyspnea [R06.09] Cardiology Comment on above: Exertional dyspnea [R06.09] Start: 07-26-2024 End: 07-26-2024 Patient encounter procedure 07/26/2024 1:50 PM EDT Office Visit Dermatology [address] [address] Allie Choudhary MD [address] [place] [address] follow up Dermatology Comment on above: follow up Start: 07-14-2024 End: 07-14-2024 Patient encounter procedure 07/14/2024 9:30 AM EDT Appointment Radiology [address] [place] [address] XR CHEST 2V FRONTAL/LAT Radiology Comment on above: XR CHEST 2V FRONTAL/LAT Start: 07-12-2024 End: 07-12-2024 Patient encounter procedure 07/12/2024 9:10 AM EDT Office Visit Family [facility] [address] [place], [place] [address] Beau Yanez MD [address] [place], [place] [id number] SOB twice Family [facility] Comment on above: SOB twice Start: 07-10-2024 End: 07-10-2024 Patient encounter procedure 07/10/2024 11:00 AM EDT Office Visit [facility] [address] [place], [place] [phone] Susannah Capellan MD [address] [place], [place] [address] f/u Internal [facility] Comment on above: f/u Start: 07-03-2024 End: 07-03-2024 Patient encounter procedure 07/03/2024 10:20 AM EDT Office Visit [facility] [address] [facility] [place] [address] Susannah [facility]an MD [address] [facility] [address] f/u [facility] Comment on above: f/u Start: 06-28-2024 End: 09-27-2024 Basic metabolic 2000 panel - Serum or Plasma BASIC METABOLIC PANEL Lab Routine Essential hypertension 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) Expected: 06/28/2024, Expires: 09/27/2024 [facility] Comment on above: Expected: 06/28/2024, Expires: 4 Start: 06-28-2024 End: 09-27-2024 Lipid 1996 panel - Serum or Plasma LIPID PANEL BASIC Lab Routine Cerebral microvascular disease Expected: 06/28/2024, Expires: 09/27/2024 [facility] Work Phone: Comment on above: Expected: 06/28/2024, Expires: 4 Start: 06-26-2024 End: 09-25-2024 Bacteria identified in Urine by Culture [facility] Work Phone: Comment on above: Expected: 06/26/2024, Expires: 4 Ordered: 06/26/2024 Start: 06-18-2024 Covid-19 Vaccine ( season) Covid-19 Vaccine ( season) [facility] Start: 06-18-2024 Covid-19 Vaccine ( season) Covid-19 Vaccine ( season) [facility] Start: 06-18-2024 Influenza vaccination Influenza Vaccine (#1) [facility] Start: 04-12-2024 Hepatitis B surface antibody level LDL CHOLESTEROL [facility] Start: 03-31-2024 Orders Only 03/31/2024 Orders Only Cardiology [address] [place] [address] Paul Bautista MD [address] [place] [address] Cardiology Start: 03-30-2024 End: 03-30-2024 Patient encounter procedure 03/30/2024 2:45 PM EDT Office Visit Cardiology [address] [place] [address] Paul Bautista MD [address] [place] [id number] Main, Nurse [facility] [address] [place] [address] Dx: Chronic diastolic (congestive) heart failure (HCC) [I50.32 (ICD-10-CM)] Cardiology Comment on above: Dx: Chronic diastolic (congestive) heart failure (HCC) [I50.32 (ICD-10-CM)] Start: 03-28-2024 End: 03-28-2024 Patient encounter procedure 03/28/2024 3:50 PM EDT Office Visit [facility] [address] [place] [address] Susannah Capellan MD [address] [place], [place] [id number] Return in about 4 months (around 03/16/2024). [facility] Comment on above: Return in about 4 months (around 03/16/20). Start: 03-19-2024 DIABETES SCREEN DIABETES SCREEN [facility] Start: 01-15-2024 Covid-19 Vaccine ( season) Covid-19 Vaccine ( season) [facility] Start: 11-06-2023 [facility] Start: 11-06-2023 End: 11-06-2023 [facility] Start: 10-18-2023 Behavioral Health Screening Behavioral Health Screening [facility] Start: 09-30-2023 End: 12-30-2023 Basic metabolic 2000 panel - Serum or Plasma BASIC METABOLIC PNL Lab Routine Chronic diastolic (congestive) heart failure (HCC) Expected: 09/30/2023, Expires: 12/30/2023 [facility] Work Phone: Comment on above: Expected: 09/30/2023, Expires: 4 Start: 09-30-2023 End: 12-30-2023 Natriuretic peptide.B prohormone N-Terminal [Mass/volume] in Serum or Plasma NT PRO BNP Lab Routine Chronic diastolic (congestive) heart failure (HCC) Expected: 09/30/2023, Expires: 12/30/2023 [facility] Work Phone: Comment on above: Expected: 09/30/2023, Expires: 4 Start: 07-05-2023 End: 09-04-2023 Thyrotropin [Units/volume] in Serum or Plasma TSH BLD Lab Routine Hypothyroidism, unspecified type Expected: 07/05/2023, Expires: 09/04/2023 [facility] Work Phone: Comment on above: Expected: 07/05/2023, Expires: 3 Start: 06-18-2023 Covid-19 Vaccine ( season) Covid-19 Vaccine ( season) [facility] Start: 06-18-[address] [facility] Start: 04-02-2023 End: 11-20-2023 Echocardiography ECHO Cardiology Routine Chronic heart failure with preserved ejection fraction (HCC) Expected: 04/02/2023, Expires: 11/20/2023 [facility] Work Phone: Comment on above: Expected: 04/02/2023, Expires: 4 Start: 01-12-2023 End: 03-14-2023 Basic metabolic 2000 panel - Serum or Plasma BASIC METABOLIC PNL Lab Routine Chronic heart failure with preserved ejection fraction (HCC) Expected: 01/12/2023, Expires: 03/14/2023 [facility] Work Phone: Comment on above: Expected: 01/12/2023, Expires: 3 Start: 01-12-2023 End: 03-14-2023 Natriuretic peptide.B prohormone N-Terminal [Mass/volume] in Serum or Plasma NT PRO BNP Lab STAT Chronic heart failure with preserved ejection fraction (HCC) Expected: 01/12/2023, Expires: 03/14/2023 [facility] Work Phone: Comment on above: Expected: 01/12/2023, Expires: 3 Start: 12-30-2022 End: 03-01-2023 Basic metabolic 2000 panel - Serum or Plasma BASIC METABOLIC PNL Lab Routine Stage 3 chronic kidney disease, unspecified whether stage 3a or 3b CKD (HCC) Expected: 12/30/2022, Expires: 03/01/2023 [facility] Work Phone: Comment on above: Expected: 12/30/2022, Expires: 3 Start: 12-08-2022 Hepatitis B surface antibody level LDL CHOLESTEROL [facility] Start: 11-15-2022 COVID-19 VACCINE (5 - Moderna series) COVID-19 VACCINE (5 - Moderna series) [facility] Start: 10-18-2022 ADVANCE DIRECTIVE DISCUSSION ADVANCE DIRECTIVE DISCUSSION [facility] Start: 10-18-2022 DEPRESSION ASSESSMENT DEPRESSION ASSESSMENT [facility] Start: 09-11-2022 End: 11-11-2022 Ferritin [Mass/volume] in Serum or Plasma [facility] Work Phone: Comment on above: Expected: 09/11/2022, Expires: 3 Start: 09-11-2022 End: 11-11-2022 Iron and Iron binding capacity panel - Serum or Plasma [facility] Work Phone: Comment on above: Expected: 09/11/2022, Expires: 3 Start: 09-02-2022 End: 11-02-2022 Basic metabolic 2000 panel - Serum or Plasma BASIC METABOLIC PNL Lab Routine Chronic heart failure with preserved ejection fraction (HFpEF) (HCC) Expected: 09/02/2022, Expires: 11/02/2022 [facility] Work Phone: Comment on above: Expected: 09/02/2022, Expires: 3 Start: 09-02-2022 End: 11-02-2022 Natriuretic peptide.B prohormone N-Terminal [Mass/volume] in Serum or Plasma NT PRO BNP Lab Routine Chronic heart failure with preserved ejection fraction (HFpEF) (HCC) Expected: 09/02/2022, Expires: 11/02/2022 [facility] Work Phone: Comment on above: Expected: 09/02/2022, Expires: 3 Start: 08-15-2022 End: 10-15-2022 Basic metabolic 2000 panel - Serum or Plasma BASIC METABOLIC PNL Lab Routine 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 disease, or chronic kidney disease (HCC) Expected: 08/15/2022, Expires: 10/15/2022 [facility] Work Phone: Comment on above: Expected: 08/15/2022, Expires: 2 Start: 08-15-2022 Urine microalbumin profile [facility] Start: 06-18-2022 Influenza vaccination INFLUENZA (#1) [facility] Start: 06-14-2022 End: 08-14-2022 Thyrotropin [Units/volume] in Serum or Plasma TSH BLD Lab Routine Hypothyroidism, unspecified type Expected: 06/14/2022, Expires: 08/14/2022 [facility] Work Phone: Comment on above: Expected: 06/14/2022, Expires: 2 Start: 2022 End: 07-29-2022 Basic metabolic 2000 panel - Serum or Plasma BASIC METABOLIC PNL Lab Routine Chronic heart failure with preserved ejection fraction (HFpEF) (HCC) Expected: 2022, Expires: 07/29/2022 [facility] Work Phone: Comment on above: Expected: 2022, Expires: 2 Start: 05-18-2022 End: 07-18-2022 Basic metabolic 2000 panel - Serum or Plasma BASIC METABOLIC PNL Lab Routine 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 disease, or chronic kidney disease (HCC) Chronic heart failure with preserved ejection fraction (HFpEF) (HCC) Expected: 05/18/2022, Expires: 07/18/2022 [facility] Work Phone: Comment on above: Expected: 05/18/2022, Expires: 2 Start: 05-18-2022 End: 07-18-2022 HIGH SENSITIVITY TROPONIN T HIGH SENSITIVITY TROPONIN T Lab Routine Chronic heart failure with preserved ejection fraction (HFpEF) (HCC) Expected: 05/18/2022, Expires: 07/18/2022 [facility] Work Phone: Comment on above: Expected: 05/18/2022, Expires: 2 Start: 05-18-2022 End: 07-18-2022 Natriuretic peptide.B prohormone N-Terminal [Mass/volume] in Serum or Plasma NT PRO BNP Lab Routine 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 disease, or chronic kidney disease (HCC) Chronic heart failure with preserved ejection fraction (HFpEF) (HCC) Expected: 05/18/2022, Expires: 07/18/2022 [facility] Work Phone: Comment on above: Expected: 05/18/2022, Expires: 2 Start: 05-14-2022 End: 07-14-2022 Comprehensive metabolic 2000 panel - Serum or Plasma COMP METABOLIC PANEL Lab Routine Telogen effluvium Encounter for medication monitoring Expected: 05/14/2022, Expires: 07/14/2022 [facility] Work Phone: Comment on above: Expected: 05/14/2022, Expires: 2 Start: 04-17-2022 End: 04-17-2023 Cobalamin (Vitamin B12) [Mass/volume] in Serum or Plasma [facility] Work Phone: Comment on above: Expected: 04/17/2022, Expires: 3 Start: 04-17-2022 End: 04-17-2023 Ferritin [Mass/volume] in Serum or Plasma [facility] Work Phone: Comment on above: Expected: 04/17/2022, Expires: 3 Start: 04-17-2022 End: 06-17-2022 Folate [Mass/volume] in Serum or Plasma [facility] Work Phone: Comment on above: Expected: 04/17/2022, Expires: 2 Start: 04-17-2022 End: 06-17-2022 Haptoglobin [Mass/volume] in Serum or Plasma [facility] Work Phone: Comment on above: Expected: 04/17/2022, Expires: 2 Start: 04-17-2022 End: 04-17-2023 Iron and Iron binding capacity panel - Serum or Plasma [facility] Work Phone: Comment on above: Expected: 04/17/2022 (Approximate), Expi res: 04/17/2023 Start: 12-19-2021 COVID-19 VACCINE (4 - Booster for Moderna series) COVID-19 VACCINE (4 - Booster for Moderna series) [facility] Start: 1996 RSV Vaccine (1 - 1-dose 60+ series) RSV Vaccine (1 - 1-dose 60+ series) [facility] Ambulatory bp mntr w /sw 24 hr+ rec scan lindsey i&r AMBULATORY BP MONITORING Cardiology Routine 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 disease, or chronic kidney disease (HCC) Ordered: 05/18/2022 [facility] Work Phone: Comment on above: Ordered: 05/18/2022 Bacteria identified in Urine by Culture URINE CULTURE Microbiology Routine Pain with urination 10/05/2022 4:32 PM EST [facility] Work Phone: Bacteria identified in Urine by Culture URINE CULTURE Microbiology Routine Urgency of urination 07/17/2024 11:37 AM EDT [facility] Work Phone: End: 01-29-2026 Basic metabolic 2000 panel - Serum or Plasma BASIC METABOLIC PANEL Lab Routine 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 disease, or chronic kidney disease (HCC) Every 6 months for 4 Occurrences starting 01/29/2025 until 01/29/2026 [facility] Comment on above: Every 6 months for 4 Occurrences startin g 01/29/2025 until 01/29/2026 End: 07-25-2026 BD DXA TRABECULAR BONE SCORE (TBS) BD DXA TRABECULAR BONE SCORE (TBS) Radiology Routine Asymptomatic postmenopausal status 1 Occurrences starting 06/25/2025 until 07/25/2026 [facility] Comment on above: 1 Occurrences starting 06/25/2025 until 07/25/2026 CARDIAC RE[place] PT ([place]) CARDIAC REHAB II OUTPT ([place], [place]) BIC Routine NSTEMI (non-ST elevated myocardial infarction) (HCC) Ordered: 04/17/2025 [facility] Comment on above: Ordered: 04/17/2025 End: 10-01-2023 CBC W Auto Differential panel - Blood CBC + DIFF Lab Routine Anemia due to stage 3b chronic kidney disease (HCC) Every 3 months for 4 Occurrences starting 10/01/2022 until 10/01/2023 [facility] Work Phone: Comment on above: Every 3 months for 4 Occurrences startin g 10/01/2022 until 10/01/2023 End: 01-29-2026 CBC W Auto Differential panel - Blood COMPLETE BLOOD COUNT AND DIFFERENTIAL Lab Routine Anemia due to stage 3b chronic kidney disease (HCC) Every 3 months for 8 Occurrences starting 01/29/2025 until 01/29/2026 [facility] Work Phone: Comment on above: Every 3 months for 8 Occurrences startin g 01/29/2025 until 01/29/2026 End: 01-18-2025 DBT Breast - bilateral screening NICOLE SCREENING W MICHELLE Radiology Routine Personal history of malignant neoplasm of breast Encounter for screening mammogram for malignant neoplasm of breast 1 Occurrences starting 12/20/2023 until 01/18/2025 [facility] Work Phone: Comment on above: 1 Occurrences starting 12/20/2023 until 01/18/2025 End: 01-29-2025 DBT Breast - bilateral screening NICOLE SCREENING W MICHELLE Radiology Routine Encounter for screening mammogram for breast cancer 1 Occurrences starting 12/31/2023 until 01/29/2025 [facility] Work Phone: Comment on above: 1 Occurrences starting 12/31/2023 until 01/29/2025 DBT Breast - bilater al screening NICOLE SCREENING W MICHELLE Radiology Routine Encounter for screening mammogram for high-risk patient 06/22/2025 2:28 PM EDT [facility] Work Phone: End: 07-26-2026 DBT Breast - right diagnostic for implant NICOLE DIAG W MICHELLE RIGHT Radiology Routine Abnormal mammogram 1 Occurrences starting 06/26/2025 until 07/26/2026 [facility] Work Phone: Comment on above: 1 Occurrences starting 06/26/2025 until 07/26/2026 End: 07-25-2026 DXA Skeletal system.axial Views for bone density DXA-AXIAL SKELETON Radiology Routine Asymptomatic postmenopausal status 1 Occurrences starting 06/25/2025 until 07/25/2026 [facility] Comment on above: 1 Occurrences starting 06/25/2025 until 07/25/2026 End: 08-03-2024 DXA-AXIAL SKELETON DXA-AXIAL SKELETON Radiology Routine Asymptomatic postmenopausal state Medicare annual wellness visit, subsequent 1 Occurrences starting 07/05/2023 until 08/03/2024 [facility] Work Phone: Comment on above: 1 Occurrences starting 07/05/2023 until 08/03/2024 DXA-AXIAL SKELETON DXA-AXIAL SKE LETON Radiology Routine Asymptomatic postmenopausal state Medicare annual wellness visit, subsequent 08/04/2023 12:52 PM EDT [facility] Work Phone: ECG COMPLETE ECG COMPLETE ECG Routine 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 disease, or chronic kidney disease (HCC) Exertional dyspnea Ordered: 07/03/2024 [facility] Work Phone: Comment on above: Ordered: 07/03/2024 End: 09-13-2025 Echocardiography ECHO Cardiology Routine Chronic diastolic (congestive) heart failure (HCC) 1 Occurrences starting 09/13/2024 until 09/13/2025 [facility] Work Phone: Comment on above: 1 Occurrences starting 09/13/2024 until 09/13/2025 FECAL LACTOFERRIN/LEUKOCYTES FECAL LACTOFERRIN/LEUKOCYTES Lab Routine Collagenous colitis Ordered: 03/28/2024 [facility] Comment on above: Ordered: 03/28/2024 HEARING TEST/AUDIOGRAM HEARING T EST/AUDIOGRAM Audiology Routine Medicare annual wellness visit, subsequent Decreased hearing of both ears Ordered: 07/05/2023 [facility] Work Phone: Comment on above: Ordered: 07/05/2023 End: 03-28-2026 HEARING TEST/AUDIOGRAM HEARING TEST/AUDIOGRAM Audiology Routine Decreased hearing of both ears 1 Occurrences starting 03/27/2025 until 03/28/2026 [facility] Comment on above: 1 Occurrences starting 03/27/2025 until 03/28/2026 Hemoglobin.gastroint estinal .lower [Presence] in Stool by Immunoassay FECAL OCCULT BLOOD TEST Lab Routine Anemia, unspecified type Ordered: 04/14/2022 [facility] Work Phone: Comment on above: Ordered: 04/14/2022 End: 08-03-2024 Hepatobil syst imag inc gb w/pharma intervenj NM HEPATOBILIARY W EF AND/OR RX Radiology Routine Medicare annual wellness visit, subsequent Epigastric pain 1 Occurrences starting 07/05/2023 until 08/03/2024 [facility] Work Phone: Comment on above: 1 Occurrences starting 07/05/2023 until 08/03/2024 End: 05-31-2026 LUNG DIFFUSION CAPACITY (DLCO) LUNG DIFFUSION CAPACITY (DLCO) PFT Routine Mild pulmonary hypertension (HCC) Hypoxia SOB (shortness of breath) 1 Occurrences starting 05/01/2025 until 05/31/2026 [facility] Comment on above: 1 Occurrences starting 05/01/2025 until 05/31/2026 End: 05-31-2026 LUNG VOLUMES LUNG VOLUMES PFT Routine Mild pulmonary hypertension (HCC) Hypoxia SOB (shortness of breath) 1 Occurrences starting 05/01/2025 until 05/31/2026 [facility] Comment on above: 1 Occurrences starting 05/01/2025 until 05/31/2026 End: 02-08-2025 MG Breast - right Diagnostic for implant NICOLE DIAGNOSTIC RIGHT Radiology Routine Abnormal mammogram 1 Occurrences starting 01/10/2024 until 02/08/2025 [facility] Work Phone: Comment on above: 1 Occurrences starting 01/10/2024 until 02/08/2025 End: 04-26-2026 MR Biliary ducts and Pancreatic duct WO and W contrast IV MRI PANC/ALBERTO WO/W IVCON Radiology Routine Epigastric pain 1 Occurrences starting 03/27/2025 until 04/26/2026 [facility] Comment on above: 1 Occurrences starting 03/27/2025 until 04/26/2026 MR Kidney WO and W c ontrast IV MRI KIDNEY WO/W IVCON Radiology Routine Other specified disorders of kidney and ureter 05/18/2025 1:17 PM EDT [facility] Work Phone: End: 04-26-2026 MR Unspecified body region 3D post processing MRI 3D POST PROCESSING Radiology Routine Epigastric pain 1 Occurrences starting 03/27/2025 until 04/26/2026 [facility] Comment on above: 1 Occurrences starting 03/27/2025 until 04/26/2026 Patient Education ED URI, Viral, No Abx (Adult) [facility] Work Phone: Patient referral [facility] Work Phone: PT PLAN OF CARE CERTIFICATION PT PLAN OF CARE CERTIFICATION Procedures Routine Acute right-sided thoracic back pain Ordered: 04/08/2023 [facility] Comment on above: Ordered: 04/08/2023 Pulmonary rehabilita tion pro CONSULT PULMONARY REHABILITATION PROGRAM Procedures Routine Chronic obstructive pulmonary disease, unspecified COPD type (HCC) Ordered: 05/31/2025 [facility] Work Phone: Comment on above: Ordered: 05/31/2025 End: 07-05-2026 SIX MINUTE WALK SIX MINUTE WALK PFT Routine Chronic obstructive pulmonary disease, unspecified COPD type (HCC) 1 Occurrences starting 06/06/2025 until 07/05/2026 [facility] Work Phone: Comment on above: 1 Occurrences starting 06/06/2025 until 07/05/2026 End: 05-31-2026 SPIROMETRY - BASELINE AND POST DILATOR SPIROMETRY - BASELINE AND POST DILATOR PFT Routine Mild pulmonary hypertension (HCC) Hypoxia SOB (shortness of breath) 1 Occurrences starting 05/01/2025 until 05/31/2026 [facility] Work Phone: Comment on above: 1 Occurrences starting 05/01/2025 until 05/31/2026 End: 07-03-2025 STRESS ECHO TREADMILL STRESS ECHO TREADMILL Cardiology Routine Exertional dyspnea 1 Occurrences starting 07/03/2024 until 07/03/2025 [facility] Comment on above: 1 Occurrences starting 07/03/2024 until 07/03/2025 Ther px 1/> areas ea ch 15 minutes massage MASSAGE THERAPY Procedures Routine Chronic back pain, unspecified back location, unspecified back pain laterality Ordered: 02/23/2023 [facility] Work Phone: Comment on above: Ordered: 02/23/2023 Troponin T.cardiac [Mass/volume] in Serum or Plasma by High sensitivity method [facility] End: 04-21-2024 US ABD RIGHT UPPER QUADRANT US ABD RIGHT UPPER QUADRANT Radiology Routine Epigastric abdominal tenderness without rebound tenderness 1 Occurrences starting 03/23/2023 until 04/21/2024 [facility] Work Phone: Comment on above: 1 Occurrences starting 03/23/2023 until 04/21/2024 End: 02-08-2025 US Breast - right limited US BREAST LTD RIGHT Radiology Routine Abnormal mammogram 1 Occurrences starting 01/10/2024 until 02/08/2025 [facility] Work Phone: Comment on above: 1 Occurrences starting 01/10/2024 until 02/08/2025 End: 07-26-2026 US Breast - right limited US BREAST LTD RIGHT Radiology Routine Abnormal mammogram 1 Occurrences starting 06/26/2025 until 07/26/2026 [facility] Comment on above: 1 Occurrences starting 06/26/2025 until 07/26/2026 End: 05-31-2026 US Kidney - bilateral and Urinary bladder US KIDNEY/BLADDER Radiology Routine Kidney lesion, [place], left 1 Occurrences starting 05/01/2025 until 05/31/2026 [facility] Comment on above: 1 Occurrences starting 05/01/2025 until 05/31/2026 US Kidney - bilatera l and Urinary bladder US KIDNEY/BLADDER Radiology Routine Kidney lesion, [place], left 05/09/2025 1:47 PM EDT [facility] Work Phone: End: 10-31-2023 US KIDNEY/BLADDER US KIDNEY/BLADDER Radiology Routine Urinary retention 1 Occurrences starting 10/01/2022 until 10/31/2023 [facility] Work Phone: Comment on above: 1 Occurrences starting 10/01/2022 until 10/31/2023 End: 10-31-2023 Us pelvic nonobstetric image dcmtn limited/f/u US PELVIS BLADDER Radiology Routine Urinary retention 1 Occurrences starting 10/01/2022 until 10/31/2023 [facility] Work Phone: Comment on above: 1 Occurrences starting 10/01/2022 until 10/31/2023 End: 08-02-2025 XR Chest PA and Lateral XR CHEST 2V FRONTAL/LAT Radiology Routine Exertional dyspnea 1 Occurrences starting 07/03/2024 until 08/02/2025 [facility] Comment on above: 1 Occurrences starting 07/03/2024 until 08/02/2025 [facility] Immunizations Immunization Date Immunization Notes Care Provider Fa [facility] 08-08-2024 influenza virus vaccine, unspecified formulation Susannah Capellan MD Work Phone: [facility] 08-21-2023 influenza, injectabl e, quadrivalent, contains preservative Immunization Golden Work Phone: [facility] 08-21-2023 influenza virus vaccine, unspecified formulation Susannah Capellan MD Work Phone: [facility] 08-08-2022 influenza, injectabl e, quadrivalent, contains preservative Immunization Fam Work Phone: [facility] 08-08-2022 influenza virus vaccine, unspecified formulation Susannah Capellan MD Work Phone: [facility] 07-16-2022 COVID-19 booster vaccine, age 12+ yr, bivalent ([email or web address]) Susannah Capellan MD Work Phone: [facility] 09-24-2021 zoster vaccine recombinant Kelsi El Dorado OT/L Work Phone: [facility] Work Phone: 08-19-2021 influenza, injectabl e, quadrivalent, contains preservative Kelsi El Dorado OT/L Work Phone: [facility] 06-25-2021 zoster vaccine recombinant Kelsi El Dorado OT/L Work Phone: [facility] 12-05-2020 COVID-19 vaccine, fu ll dose (MODERNA) Kelsi El Dorado OT/L Work Phone: [facility] Work Phone: 11-07-2020 COVID-19 vaccine, fu ll dose (MODERNA) Kelsi El Dorado OT/L Work Phone: [facility] Work Phone: 08-15-2020 influenza, injectabl e, quadrivalent, contains preservative Kelsi El Dorado OT/L Work Phone: [facility] 09-01-2019 influenza, injectabl e, quadrivalent, contains preservative Kelsi El Dorado OT/L Work Phone: [facility] 08-12-2018 influenza, injectabl e, quadrivalent, contains preservative Kelsi El Dorado OT/L Work Phone: [facility] Work Phone: 07-30-2017 influenza, injectabl e, quadrivalent, contains preservative Kelsi El Dorado OT/L Work Phone: [facility] 07-18-2017 influenza, high dose seasonal, preservative-free Kelsi El Dorado OT/L Work Phone: [facility] Work Phone: 07-18-2017 influenza, injectabl e, quadrivalent, preservative free [facility] 07-18-2017 influenza, seasonal, injectable, preservative free Kelsi El Dorado OT/L Work Phone: [facility] 08-21-2016 influenza, injectabl e, quadrivalent, contains preservative Kelsi El Dorado OT/L Work Phone: [facility] 08-12-2015 influenza, high dose seasonal, preservative-free Kelsi El Dorado OT/L Work Phone: [facility] 11-22-2014 pneumococcal conjuga te vaccine, 13 valent Kelsi El Dorado OT/L Work Phone: [facility] 11-22-2014 pneumococcal polysaccharide vaccine, 23 valent Kelsi El Dorado OT/L Work Phone: [facility] Work Phone: 08-16-2014 influenza, seasonal, injectable Kelsi El Dorado OT/L Work Phone: [facility] Work Phone: 07-29-2013 influenza virus vaccine, unspecified formulation Kelsi El Dorado OT/L Work Phone: [facility] 08-15-2012 influenza virus vaccine, unspecified formulation Kelsi El Dorado OT/L Work Phone: [facility] 08-15-2012 tetanus toxoid, redu emma diphtheria toxoid, and acellular pertussis vaccine, adsorbed Kelsi El Dorado OT/L Work Phone: [facility] 05-31-2012 pneumococcal conjuga te vaccine, 13 valent Kelsi El Dorado OT/L Work Phone: [facility] Work Phone: 08-29-2011 influenza virus vaccine, unspecified formulation Kelsi El Dorado OT/L Work Phone: [facility] 08-15-2010 influenza virus vaccine, unspecified formulation Kelsi El Dorado OT/L Work Phone: [facility] Work Phone: 08-01-2009 influenza virus vaccine, unspecified formulation Kelsi El Dorado OT/L Work Phone: [facility] Work Phone: 10-18-2008 zoster vaccine, live Kelsi El Dorado OT/L Work Phone: [facility] Work Phone: 08-24-2008 influenza virus vaccine, unspecified formulation Kelsi El Dorado OT/L Work Phone: [facility] Work Phone: 07-20-2008 influenza virus vaccine, unspecified formulation Kelsi El Dorado OT/L Work Phone: [facility] 08-26-2007 influenza virus vaccine, unspecified formulation Kelsi El Dorado OT/L Work Phone: [facility] 08-13-2006 influenza virus vaccine, unspecified formulation Kelsi El Dorado OT/L Work Phone: [facility] 09-04-2005 influenza virus vaccine, unspecified formulation Kelsi El Dorado OT/L Work Phone: [facility] Work Phone: 10-18-2004 tetanus and diphther ia toxoids, adsorbed, preservative free, for adult use (2 Lf of tetanus toxoid and 2 Lf of diphtheria toxoid) Kelsi El Dorado OT/L Work Phone: [facility] 10-18-2003 pneumococcal polysaccharide vaccine, 23 valent Kelsi Webbtz OT/L Work Phone: [facility] 10-18-1994 hepatitis A vaccine, unspecified formulation Kelsi Webbtz OT/L Work Phone: [facility] 10-18-1994 hepatitis B vaccine, adult dosage Kelsi El Dorado OT/L Work Phone: [facility] Payers Date Payer Category Payer Self-pay [id number] 2020 Medicare MEDICARE MEDICAR E A AND B [id number] 2020-Present [phone] [place] [address] Medicare [id number] 2020 Medicare [id number] 2020 Private Health Insurance [employer] Member Subscriber Plan / Payer (Effective 2020-Present) Name: Zenaida Evans Relation to Subscriber: Self Name: Zenaida Evans Payer ID: Not on file Group ID: Not on file Type: Indemnity Address: [address] [place], [place] [id number] 2020 Unknown PHYSICIANS LISA Lockett [employer]ICIANS [employer] SUPPLEMENT [id number] 2020-Present [phone] [address] [place], [place] Indemnity [id number] 2020 Unknown PHYSICIANS LISA L [employer]YSICIANS [employer] SUPPLEMENT [id number] 2020-Present [phone] [address] [place] [address] Indemnity [id number] 2020 Medicare [id number] 2020 Unknown [id number] Unknown [id number] Unknown [id number] Unknown [id number] 462 Unknown [id number] 462 Unknown [id number] 462 Unknown [id number] 462 Unknown [id number] 462 Unknown [id number] 462 Unknown [id number] 462 Unknown [id number] 462 Unknown [id number] 462 Unknown [id number] 462 Unknown [id number] 462 Unknown [id number] 462 Unknown [id number] 462 Social History Date Type Detail Facility Start: 01-20-2012 End: 07-11-2025 Tobacco smoking status NHIS Ex-smoker [facility] Work Phone: Start: 01-19-1955 End: 01-19-1967 History of tobacco use Current smoker [facility] Start: 01-19-1955 End: 01-19-1967 History of tobacco use Cigarette Smoker [facility] Start: 12-29-2021 End: 06-25-2025 Alcohol intake Current drinker of alcohol (finding) [facility] Start: 07-05-2020 History SDOH Alcohol Binge 1 [facility] Start: 09-19-2020 History SDOH Financial 5 [facility] Start: 1935 Sex Assigned At Not on file C [facility] Start: 06-29-2020 End: 09-11-2022 Exposure to SARS-CoV-2 (event) Not sure [facility] Work Phone: Start: 05-08-2022 End: 05-18-2022 Exposure to SARS-CoV-2 (event) Unable to assess [facility] Start: 01-20-2012 End: 02-18-2023 Cigarettes smoked current (pack per day) - Reported 1 [facility] Start: 01-20-2012 End: 06-11-2024 Tobacco use and exposure Smokeless tobacco non-user [facility] Start: 03-08-2023 History SDOH Physica l Activity DPW 3 [facility] Start: 03-08-2023 History SDOH Physica l Activity MPS 6 [facility] Start: 03-08-2023 History SDOH Stress 2 [facility] Start: 02-18-2023 End: 03-08-2023 Social connection and isolation panel [facility] Start: 09-18-2012 In a typical week, how many times do you talk on the telephone with family, friends, or neighbors? Patient refused [facility] Are you now , , , , never or living with a partner? Refused [facility] Do you feel stress - tense, restless, nervous, or anxious, or unable to sleep at night because your mind is troubled all the time - these days [OSQ] Only a little [facility] (I/We) worried whether (my/our) food would run out before (I/we) got money to buy more. DK or Refused [facility] Start: 03-06-2022 Gender identity Identifies as female gender (finding) [facility] How often do you hav e 6 or more drinks on 1 occasion? Never [facility] Start: 11-06-2023 Tobacco smoking status NHIS Unknown if ever smoked [facility] Start: 10-15-2019 None [facility] Start: 10-16-2019 Spouse/ Signif icant Other [facility] Start: 10-16-2019 Non-smoker [facility] Start: 1935 Sex Assigned At Female W [facility] Are you now , , , , never or living with a partner? [facility] Do you feel stress - tense, restless, nervous, or anxious, or unable to sleep at night because your mind is troubled all the time - these days [OSQ] To some extent [facility] NEGATED: Highlighted rowStart: NINF History of tobacco use Passive smoker [facility] Goals Date Patient Goal Desired Activity /State Personal health goal Functional Status Date Assessment Result Facility 04-29-2025 Functional status Ambulates;Up ad isak [facility] Work Phone: 04-11-2025 Functional status Ambulates [facility] Work Phone: 04-10-2025 Functional status None [facility] Work Phone: 03-27-2025 Total score [AUDIT-C] 0 03/27/20 25 3:59 PM EDT Tara Orona MA [facility] 07-13-2024 Total score [AUDIT-C] -1 024 5:43 AM EDT Kavon, Ramona [facility] 07-13-2024 Functional status Patient declin ed 07/13/2024 5:43 AM EDT User, Ramona Patient declined [facility] 11-24-2019 Are you deaf, or do you have serious difficulty hearing No 11/24/2019 3:17 PM EST Mary Zavala (Rn), RN No [facility] 11-24-2019 Are you blind, or do you have serious difficulty seeing, even when wearing glasses No 11/24/2019 3:17 PM Mary Harrison (Rn), RN No [facility] 11-24-2019 Do you have serious difficulty walking or climbing stairs No 11/24/2019 3:17 PM Mary HarrisonRn), RN No [facility] 11-24-2019 Do you have difficul ty dressing or bathing No 11/24/2019 3:17 PM Mary HarrisonRn), RN No [facility] 11-24-2019 Because of a physica l, mental, or emotional condition, do you have difficulty doing errands alone such as visiting a physician's office or shopping No 11/24/2019 3:17 PM Mary Harrison), RN No [facility] Mental Status Date Assessment Result Facility 04-29-2025 Cognitive function Voice/Name [facility] Work Phone: 04-27-2025 Cognitive function Voice/Name [facility] Work Phone: 04-11-2025 Cognitive function Voice/Name [facility] Work Phone: 04-11-2025 Cognitive function Voice/Name [facility] Work Phone: 04-09-2025 Cognitive function Voice/Name [facility] Work Phone: 11-06-2023 Cognitive function Level Of Cons ciousness Awake;Alert;Appropriate;Fol lows Commands [facility] Work Phone: 11-24-2019 Because of a physica l, mental, or emotional condition, do you have serious difficulty concentrating, remembering, or making decisions No 11/24/2019 3:17 PM Mary Harrison (Rn), RN No [facility] Clinical Notes 12-22-2019 to 07-24-2025 Patient InstructionsSalSusannah gaston MD - 06/25/2025 10:08 AM Barbara Weaver RT(R) - 06/22/2025 2:30 PM Jitendra Sharma APRN.BUSINESS PROFESSOR - 06/22/2025 2:00 PM EDTPatient Instructions Note Date & Type Note [facility] 07-24-2025 Note HNO ID: [id number] Author: NADJA GANT RDMS Service: ? Author Type: Technologist Type: Progress Notes Filed: 07/24/2025 11:12 Note Text: Radiology Service Progress Note PATIENT NAME: Zenaida Evans DATE OF SERVICE: July 24, 2025 TIME: 11:12 AM PATIENT IDENTITY VERIFICATION COMPLETED USING TWO (2) IDENTIFIERS: Name and Date of confirmed by patient verbally. FALL SCREENING: Has the patient had 2 falls in the last year or 1 fall with injury or currently using an Ambulatory Assistive Device (Walker, Cane, Wheelchair, Crutches, etc.)? No PATIENT GENDER DATA: Assigned female at . status: : No status: N/A PATIENT RELEVANT IMPLANT DATA REVIEWED: Not Applicable PATIENT PRESENTS WITH AN IMPLANTABLE OR ATTACHED MARKETING SECRETARY: n/a RADIOLOGY DEPARTMENT: Ultrasound PERIPHERAL IV DATA: Not applicable SIGNED BY: Nadja Gant RDMS July 24, 2025 11:12 AM [facility] 07-18-2025 Note HNO ID: [id number] Author: HYACINTH ESQUIVEL RT(R) Service: ? Author Type: Breaker Machine Operator Type: Progress Notes Filed: 07/18/2025 13:52 Note Text: Radiology Service Progress Note PATIENT NAME: Zenaida Evans DATE OF SERVICE: July 18, 2025 TIME: 1:52 PM PATIENT IDENTITY VERIFICATION COMPLETED USING TWO (2) IDENTIFIERS: Name and Date of confirmed by patient verbally. FALL SCREENING: Has the patient had 2 falls in the last year or 1 fall with injury or currently using an Ambulatory Assistive Device (Walker, Cane, Wheelchair, Crutches, etc.)? No PATIENT GENDER DATA: Assigned female at . status: : No status: NO. PATIENT RELEVANT IMPLANT DATA REVIEWED: Yes PATIENT PRESENTS WITH AN IMPLANTABLE OR ATTACHED MARKETING SECRETARY: No RADIOLOGY DEPARTMENT: CT; Exam(s) Completed: Chest. Anesthesia: No PERIPHERAL IV DATA: Not applicable SIGNED BY: RT Alfredo(Gonzalez) July 18, 2025 1:52 PM [facility] 07-17-2025 Note HNO ID: [id number] Author: ALYSHA PORRAS CT Service: Radiology Author Type: Technologist Type: Progress Notes Filed: 07/17/2025 14:09 Note Text: Radiology Service Progress Note PATIENT NAME: Zenaida Evans DATE OF SERVICE: July 17, 2025 TIME: 2:09 PM PATIENT IDENTITY VERIFICATION COMPLETED USING TWO (2) IDENTIFIERS: Name and Date of confirmed by patient verbally. FALL SCREENING: Has the patient had 2 falls in the last year or 1 fall with injury or currently using an Ambulatory Assistive Device (Walker, Cane, Wheelchair, Crutches, etc.)? No PATIENT GENDER DATA: Assigned female at . status: : No status: NO. PATIENT RELEVANT IMPLANT DATA REVIEWED: Not Applicable PATIENT PRESENTS WITH AN IMPLANTABLE OR ATTACHED MARKETING SECRETARY: No RADIOLOGY DEPARTMENT: Ultrasound PERIPHERAL IV DATA: Not applicable SIGNED BY: KAREN Vasquez July 17, 2025 2:09 PM [facility] 07-14-2025 Note HNO ID: [id number] Author: BEAU YANEZ MD Service: ? Author Type: Physician Type: Progress Notes Filed: 07/14/2025 12:01 Note Text: Zenaida Evans is a 89 year old female who presents with the following concerns and complaints: The patient is an 89-year-old female with osteoarthritis, presenting for evaluation of worsening left hip pain radiating to the knee. Left Hip Pain: - Onset mid-May. - X-ray showed arthritis; not [id number]. - Pain localized to the lateral hip, radiating to the knee and wrapping around the front. - Pain severity ranges from 1-2/10 on prednisone to 10/10 off prednisone. - Pain exacerbated by extension and palpation; no specific tender spot in the back. - Denies pain in the buttocks. - Recent flare-up after completing a second course of prednisone yesterday. - Tried Tylenol and tramadol with no relief; unable to take Aleve due to low kidney function. - Used an old Percocet prescription last night due to severe pain. - Orthopedic physician recommended an injection. MA: - Experienced a mild MA this summer. 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, Face Hypothyroidism Hip Arthritis Vaginal Atrophy Seborrheic Dermatitis Elevated Blood Uric Acid Level Venous Stasis Collagenous Colitis Pleural Effusion Svt (Supraventricular Tachycardia) (Hcc) Cerebral Microvascular Disease Stage 3 Chronic Kidney Disease (Hcc) Iron Deficiency Anemia Encephalopathy Chronic Diastolic (Congestive) Heart Failure (Hcc) Anemia Due to Stage 3b Chronic Kidney Disease (Hcc) H/O Calcium Pyrophosphate Deposition Disease (Cppd) Primary Osteoarthritis of Right Knee Sensorineural Hearing Loss, Bilateral Failure to Thrive in Adult Essential Hypertension Primary Osteoarthritis of First Carpometacarpal Joint of Left Hand Chronic Thoracic Back Pain Degenerative Scoliosis in Adult Patient Idiopathic 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 Patient has a positive extension test at the knee on the left she also has tenderness in the left lateral hip area also in this area - X-ray: Arthritic changes noted in the hip, no [id number] changes Assessment / Plan: 1. Left sided sciatica (M54.32) 2. Pain of left hip (M25.552) - Severe left hip pain radiating to the knee, with positive extension test and focal tenderness; pain improved with prednisone but worsened after cessation. - X-ray in May showed arthritic changes, but not [id number]. - Differential includes sciatica and hip arthritis; possible benefit from injection. - Start prednisone 40 mg daily (2 pills per day) for 7 days; discussed risks of repeated steroid use, including adrenal suppression. - Prescribe lidocaine patches for localized pain relief; instructed to apply for 12 hours on, 12 hours off. - Advised use of Tylenol in combination with Percocet for breakthrough pain if needed. - Refer to spine center for further evaluation of possible sciatica and additional diagnostic workup. - Educated on potential causes of pain, rationale for current management, and importance of follow-up with spine center. 3. Stage 3b chronic kidney disease (HCC) (N18.32) - Advised to avoid NSAIDs due to CKD. Office Visit on 07/14/25 CONSULT TO [facility] oxyCODONE-acetaminophen (PERCOCET) 5-325 mg tablet lidocaine (LIDODERM) 5 % predniSONE (DELTASONE) 20 mg tablet - Start prednisone 40 mg once daily for 7 days (take two 20 mg tablets each morning), then stop without taper; prescription sent to [facility] in [place] - Use Tylenol as directed for your hip pain, and if pain remains severe you may use Percocet for breakthrough relief - Apply lidocaine patches to the tender hip area for 12 hours on and 12 hours off (wear overni (more content not included)... [facility] 07-06-2025 Note HNO ID: [id number] Author: JOE MCKEON MD Service: ? Author Type: Physician Type: Progress Notes Filed: 08/03/2025 22:15 Note Text: Subjective Zenaida Evans is an 89-year-old female, with a history of MA, DVT, and COPD, presenting with left hip pain. Zenaida reports a 6-week history of left hip pain that began in the thigh and groin and has since radiated to the hip and back. The pain is constant, with varying degrees of intensity, and is most comfortable when sitting. Lying down exacerbates the pain, which is localized to the groin, side, and back, and occasionally radiates almost to the knee. The pain interferes with sleep, causing her to wake up at [phone] due to discomfort. She requires assistance from her to perform activities such as putting on shoes and socks. She sought care at an urgent care facility in [place] after one week of symptoms, where she was advised to use Voltaren and underwent an x-ray. She reports minimal relief from Voltaren and tramadol, which she had from a previous incident. She has also tried ice, massage, and chiropractic treatments without significant improvement. She notes that a previous cortisone injection many years ago provided significant relief. Zenaida has a history of a mild MA, DVT in one leg, and COPD, for which she is currently using an inhaler and is recommended for pulmonary rehabilitation. She is on Eliquis for DVT, with plans to discontinue at the end of the month. She denies diabetes and has not been on osteoporosis medications such as Fosamax or Forteo. She reports good bone scan results and has another scan scheduled. Constitutional: (+) sleep disturbance Musculoskeletal: (+) left hip pain, (+) left groin pain, (+) left thigh pain, (+) back pain, (+) pain radiating to left knee, (+) pain with walking, (+) pain with lying down, (+) difficulty putting on shoes Objective There were no vitals taken for this visit. - Musculoskeletal: - Left Hip: - Pain elicited with leg straightening and flexion. - ROM: Flexion to 75 degrees, external rotation to 30 degrees, internal rotation to -10 degrees. - Right Hip: Better range of motion compared to left hip. - Neurological: Sensation intact in lower extremities. Imaging: - X-ray of the left hip (approximately one month ago): Significant narrowing of the left hip joint space, osteophyte formation, and mild lumbar scoliosis observed, consistent with arthritic changes. - Bone scans: Patient reports all prior bone scan evaluations have been normal. Tests: - Pulmonary function test: Abnormal results reported by the patient, suggestive of COPD. Assessment AND Plan 1. Arthritis of left hip (M16.12) Chronic left hip pain with radiographic evidence of joint space narrowing and osteophyte formation consistent with osteoarthritis; pain refractory to topical Voltaren and tramadol. - Start prednisone taper: 4 tablets daily for 2 days, then 3 tablets daily for 2 days, then 2 tablets daily for 2 days, then 1 tablet daily for 2 days, then 1/2 tablet daily for 2 days. - Discussed that NSAIDs are contraindicated while on Eliquis; may consider oral NSAIDs after Eliquis is discontinued at the end of the month. - Order image-guided corticosteroid injection for left hip to be scheduled after July 18, once Eliquis is discontinued. - Discussed that ultimate management may require total hip arthroplasty if conservative measures fail, but this is deferred until cardiac and pulmonary issues are addressed. - Follow-up after hip injection. Recording using [employer] software for draft documentation of the visit was discussed with the patient/authorized in store marketing representative; all questions welcomed and answered. Patient/authorized in store marketing representative agreed to proceed [facility] 06-25-2025 Instructions Susannah Capellan MD - 06/25/2025 10:31 AM EDT BONE MINERAL DENSITY PATIENT INSTRUCTIONS ======== Bone mineral density testing measures the amount of calcium in certain parts of your bones. This information determines how strong your bones are. The test is used to detect osteoporosis, a disease in which the bone's mineral content and density are low, increasing a person's risk of fractures. The lumbar spine (lower back) and the hip are the skeletal sites usually examined. For the test, remember that: 1. You cannot take this test if you are . 2. Eat a normal diet on the day of the test. 3. Take your medications as you normally would. 4. DO NOT take calcium supplements (such as Tums) for 24 hours before the test. 5. On the day of the test, leave valuables (jewelry or credit cards) at home. 6. The test should be performed prior to oral, rectal or IV contrast studies, or at least 7 days after any of these studies. For the test, you may be asked to wear a hospital gown. You will lie on your back, on a padded table, in a comfortable position. Generally, you can resume your usual activities immediately. documented in this encounter [facility] 06-25-2025 Note HNO ID: [id number] Author: SUSANNAH CAPELLAN MD Service: ? Author Type: Physician Type: Progress Notes Filed: 06/25/2025 10:43 Note Text: Note created with [employer] Software: Recording using [employer] software for draft documentation of the visit was discussed with the patient/authorized in store marketing representative; all questions welcomed and answered. Patient/authorized in store marketing representative agreed to proceed HPI Zenaida Evans is an 89-year-old female, with a history of HTN, presenting for follow-up. Zenaida reports that her blood pressure has been stable at home, with the most recent reading being 126/61 mmHg. She notes that her systolic blood pressure occasionally fluctuates into the 130s and 120s, but has not exceeded the 140s. She is currently out of clonidine patches and requests a refill, noting that her usual pharmacy, [facility], is unable to supply it, but [facility] in [place] can. She has been using her inhaler as prescribed for pulmonary issues, although she expresses a dislike for it. She is considering updating her flu and COVID vaccinations this fall, but prefers to wait until July for the flu shot. Zenaida reports severe left hip pain that started almost a month ago, describing it as "10 out of 10" and "miserable." The pain is located on the outside of the hip and radiates to the thigh, making it difficult for her to put on shoes and walk down stairs. She denies any known injury that could have precipitated the pain. She was seen at urgent care in [place], where an x-ray was performed, but she is unsure of the results. She has an upcoming appointment with Dr. Mckeon in [place] on July 20. She inquires about the possibility of a referral to the [facility] for further evaluation. Zenaida also mentions that she is currently on Eliquis 2.5 mg BID, but is out of the medication and requests a refill. She is confused about the status of her lab tests, specifically the D-dimer and potassium levels, and seeks clarification on when they are due. She expresses a preference for pulmonary rehab over cardiac rehab due to her current hip condition. No problem-specific Assessment AND Plan notes found for this encounter. Musculoskeletal: (+) left hip pain BP 145/72 Pulse 74 Temp 36.7 ?C (98 ?F) (Oral) Wt 60.5 kg (133 lb 6.1 oz) SpO2 97% BMI 21.96 kg/m? General: No acute distress. CV: No carotid bruits, no murmurs, no edema. CV rrr Resp: Lungs clear to auscultation bilaterally. MSK/Ext: Negative straight leg raise, + tenderness over left trochanteric bursa, mild tenderness over iliotibial band, no hip (groin) pain with internal or external rotation. No edema 05/27/2025 6:50 PM - Radiology, Oru In Impression IMPRESSION: Bilateral benign renal cysts, including a benign (Bosniak 2) thinly septated LEFT parapelvic cyst corresponding to the indeterminate sonographic finding. No suspicious renal mass. 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 05/21/2025 12:53 PM - Radiology, Oru In Impression IMPRESSION: Negative study for proximal DVT in the left lower extremity. Negative study for calf DVT in the left lower extremity. Negative study for superficial thrombophlebitis in the imaged segments of the left lower extremity. Left hip: No fractures or dislocations are seen. Severe narrowing of the LEFT hip joint. poor bone density noted on imaging Prior bone density within normal limits 07/2023 Latest Ref Rng AND Units 06/07/2025 05/21/2025 05/09/2025 BMP Glucose 74 - 99 mg/dL 92 109 BUN 7 - 21 mg/dL 36 41 Creatinine 0.58 - 0.96 mg/dL 1.28 1.46 Sodium 136 - 144 mmol/L 140 139 Potassium 3.7 - 5.1 mmol/L 5.2 5.2 4.2 Chloride 98 - 107 mmol/L 105 100 CO2 22 - 30 mmol/L 24 25 Anion Gap 8 - 15 mmol/L 11 14 Calcium 8.5 - 10.2 mg/dL 9.6 10.3 EGFR >=60 mL/min/1.73m? 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 Continue current management. She plans to begin pulmonary rehab. # 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 disease, or chronic kidney disease (HCC) (I13.0) - Clinically stable. Continue current management. Patient to email me some blood pressure readings from home in the next week. Continue current medications. # Kidney lesion, caddo, left (N28.9) - Recent MRI shows stable lesion without worrisome features. No immediate intervention required. 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 # Hyperkalemia (E87.5) - Ordered follow-up potassium level to be done within the next week. # Hypoxia (R09.02) - To begin pulmonary rehabilitation in [place]. Prioritize pulmonary rehab over cardiac rehab due to current pulmonary issues. # Left hip pain (M25.552) # Trochanteric b (more content not included)... [facility] 06-25-2025 History of Present illness Narrative Images from the original note were not included. Note created with [employer] Software: Recording using [employer] software for draft documentation of the visit was discussed with the patient/authorized in store marketing representative; all questions welcomed and answered. Patient/authorized in store marketing representative agreed to proceed HPI Zenaida Evans is an 89-year-old female, with a history of HTN, presenting for follow-up. Zenaida reports that her blood pressure has been stable at home, with the most recent reading being 126/61 mmHg. She notes that her systolic blood pressure occasionally fluctuates into the 130s and 120s, but has not exceeded the 140s. She is currently out of clonidine patches and requests a refill, noting that her usual pharmacy, [facility], is unable to supply it, but [facility] [place] [facility]. She has been using her inhaler as prescribed for pulmonary issues, although she expresses a dislike for it. She is considering updating her flu and COVID vaccinations this fall, but prefers to wait until July for the flu shot. Zenaida reports severe left hip pain that started almost a month ago, describing it as "10 out of 10" and "miserable." The pain is located on the outside of the hip and radiates to the thigh, making it difficult for her to put on shoes and walk down stairs. She denies any known injury that could have precipitated the pain. She was seen at urgent care in [place], where an x-ray was performed, but she is unsure of the results. She has an upcoming appointment with Dr. Mckeon in [place] on July 20. She inquires about the possibility of a referral to the [facility] for further evaluation. Zenaida also mentions that she is currently on Eliquis 2.5 mg BID, but is out of the medication and requests a refill. She is confused about the status of her lab tests, specifically the D-dimer and potassium levels, and seeks clarification on when they are due. She expresses a preference for pulmonary rehab over cardiac rehab due to her current hip condition. No problem-specific Assessment & Plan notes found for this encounter. Musculoskeletal: (+) left hip pain BP 145/72 Pulse 74 Temp 36.7 C (98 F) (Oral) Wt 60.5 kg (133 lb 6.1 oz) SpO2 97% BMI 21.96 kg/m General: No acute distress. CV: No carotid bruits, no murmurs, no edema. CV rrr Resp: Lungs clear to auscultation bilaterally. MSK/Ext: Negative straight leg raise, + tenderness over left trochanteric bursa, mild tenderness over iliotibial band, no hip (groin) pain with internal or external rotation. No edema 05/27/2025 6:50 PM - Radiology, Oru In Impression IMPRESSION: Bilateral benign renal cysts, including a benign (Bosniak 2) thinly septated LEFT parapelvic cyst corresponding to the indeterminate sonographic finding. No suspicious renal mass. 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 05/21/2025 12:53 PM - Radiology, Oru In Impression IMPRESSION: Negative study for proximal DVT in the left lower extremity. Negative study for calf DVT in the left lower extremity. Negative study for superficial thrombophlebitis in the imaged segments of the left lower extremity. Left hip: No fractures or dislocations are seen. Severe narrowing of the LEFT hip joint. 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 Continue current management. She plans to begin pulmonary rehab. # 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 disease, or chronic kidney disease (HCC) (I13.0) - Clinically stable. Continue current management. Patient to email me some blood pressure readings from home in the next week. Continue current medications. # Kidney lesion, caddo, left (N28.9) - Recent MRI shows stable lesion without worrisome features. No immediate intervention required. 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 # Hyperkalemia (E87.5) - Ordered follow-up potassium level to be done within the next week. # Hypoxia (R09.02) - To begin pulmonary rehabilitation in [place]. Prioritize pulmonary rehab over cardiac rehab due to current pulmonary issues. # Left hip pain (M25.552) # Trochanteric bursitis of left hip (M70.62) - Severe narrowing of the left hip joint observed on recent X-ray, consistent with osteoarthritis. Tenderness noted over the left trochanteric bursa and mild tenderness at the IT band. No pain with internal or external rotation of the hip. Initiated Medrol Dosepak, prescription sent to [facility]. Referral to [facility] placed. She will see if she can get a sooner appointment that her appointment with Dr. Mckeon scheduled for July 20. # Essential hypertension (I10) - Blood pressure readings at home are stable. Continue current antihypertensive regimen. Refilled clonidine patch prescription, sent to [facility]. Patient to email recent blood pressure readings for documentation. # Asymptomatic postmenopausal status (Z78.0) - Clinically stable. Continue routine monitoring. 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 Prescription sent to [facility]. Return in about 4 months (around 10/25/2025). AVS - Continue Eliquis 2.5 mg by mouth twice daily; prescription has been sent to [facility]. Take it for one more month until your D-dimer results return. - Start the Medrol Dosepak (steroid pack) as prescribed; prescription has been sent to [facility]. - Apply the clonidine patch as prescribed; prescription has been sent to [facility] in [place]. - Go to the lab within the next week to have a fasting lipid panel and a potassium level drawn (fast only for the lipid test). - Have your D-dimer level checked around July 22 as ordered. - Schedule a bone density scan after August 04 (for example in August) per the order. - Begin pulmonary rehabilitation at the [place] location as soon as you re able; the order is in place. - Call [facility] to schedule an orthopedic evaluation; your referral has been sent. - Plan to get your flu and COVID vaccines this fall, spacing them at least two weeks apart. - Email two to three of your home blood pressure readings from this week to the office. - Your next pancreatic cyst follow-up imaging should be scheduled for May of next year. Susannah Capellan MD documented in this encounter [facility] 06-22-2025 History of Present illness Narrative Radiology Service Progress Note PATIENT NAME: Zenaida Evans DATE OF SERVICE: June 22, 2025 TIME: 2:30 PM PATIENT IDENTITY VERIFICATION COMPLETED USING TWO (2) IDENTIFIERS: Name and Date of confirmed by patient verbally. FALL SCREENING: Has the patient had 2 falls in the last year or 1 fall with injury or currently using an Ambulatory Assistive Device (Walker, Cane, Wheelchair, Crutches, etc.)? No PATIENT GENDER DATA: Assigned female at . status: : No status: NO. PATIENT RELEVANT IMPLANT DATA REVIEWED: Not Applicable PATIENT PRESENTS WITH AN IMPLANTABLE OR ATTACHED MARKETING SECRETARY: No RADIOLOGY DEPARTMENT: Mammography PERIPHERAL IV DATA: Not applicable SIGNED BY: RT Lidia(R) June 22, 2025 2:30 PM documented in this encounter [facility] 06-22-2025 Note HNO ID: [id number] Author: BARBARA EDWARDS RT (R) Service: Radiology Author Type: Breaker Machine Operator Type: Progress Notes Filed: 06/22/2025 14:30 Note Text: Radiology Service Progress Note PATIENT NAME: Zenaida Evans DATE OF SERVICE: June 22, 2025 TIME: 2:30 PM PATIENT IDENTITY VERIFICATION COMPLETED USING TWO (2) IDENTIFIERS: Name and Date of confirmed by patient verbally. FALL SCREENING: Has the patient had 2 falls in the last year or 1 fall with injury or currently using an Ambulatory Assistive Device (Walker, Cane, Wheelchair, Crutches, etc.)? No PATIENT GENDER DATA: Assigned female at . status: : No status: NO. 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 [place] today for annual exam and DBT mammogram. This summer she had mild heart attack, and DVT in left leg. She is now on Eliquis. She has some concern as her O2 Sat levels are sometimes below 90. 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 She is also having left hip pain for 3 weeks for which she is scheduled to see orthopedic surgeon 07/06/25. She has had some weight loss as a result of her health ailments She denies any breast masses, pain, skin changes or nipple discharge. She denies any new family medical problems. 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 She underwent a right NL PM with [...] has been extracted from my note dated 01/07/24. Her vitamin D level was Vitamin D 25 Hydroxy (ng/mL) Date Value 02/28/2018 44.1 She takes vitamin D 2000 units. BMD: Yes, Date in [facility]: 01/02/21; lowest T Score - 0.8-Normal PERSONAL BREAST HISTORY: Past breast history (prior to this encounter) is as follows: Breast biopsy: Yes, Right stereo bx 03/25-benign; right stere bx 03/26 benign; 09/27 Right core bx IDC at 12 o'clock position Breast cysts: No Breast surgery: Yes, 10/29 PM with SLN bx; Left ex bx-1990-AL Breast cancer: Yes, Stage I (T 1c N 0 M 0) in 09/27, treated as above CANCER SURVEILLANCE: Mammograms: Yes, Date in Epic: 01/07/24-right breast asymmetry; 01/12/24 diagnostic imaging results: negative Breast MRI: Yes, Date in Epic: 08/15/12; [...] 03/13/2011 no retinopathy detected -both eyes - [facility] - return in 1 year - Dr. Ruby hair thinning sees Dr Choudhary Hormone replacement therapy (HRT) 1974-present stopped by 09/2011 hx of low vitamin D treated 08/2007 20.4 recheck only 23 9/08 improved to 54 PMH - PAST MEDICAL HISTORY OF cardiac arrhythmia- resolved with change in medication Stage 2 moderate chronic obstructive pulmonary disease by Global Initiative for Chronic Obstructive Lung Disease classification (HCC) 05/28/2025 Stage 3 chronic kidney disease (HCC) 11/22/2019 [...] DX W/COLLJ SPEC WHEN PFRMD 09/08/2013 Colonoscopy LEFT HEART CATH,PERCUTANEOUS 04/10/2025 Mild Disease [facility]. MASTECTOMY, PARTIAL Right 10/30/2011 Right NL PM/SLNs [...] minutes 3 times per week FAMILY HISTORY: Family history of breast cancer: [place] Family [...] Aunt MEDICATIONS: cloNIDine TTS (CATAPRES-TTS) 0.1 mg/24 hr Apply 1 patch as directed one time a week. diclofenac (VOLTAREN) 1 % topical gel Apply 2 g to affected area two times a day. glycopyrrolate-formoterol (BEVESPI AEROSPHERE) 9-4.8 mcg Inhale 2 puffs as instructed two times a day. dapagliflozin propanediol (FARXIGA) 5 mg tablet Take 1 tablet by mouth daily with breakfast. ELIQUIS 2.5 mg tab(s) Take 2.5 mg by mouth two times a day. ondansetron (ZOFRAN) 4 mg tablet Take by mouth every 8 hours as needed for nausea/vomiting. labetalol (TRANDATE) 200 mg tablet Take 1 tablet by mouth two times a day. nitroglycerin sublingual (NITROQUICK) 0.4 mg SL tablet [...] leave in for 3-5 minutes before rinsing. MULTIVITAMIN ORAL Take 1 tablet by mouth once daily. Melatonin 5 mg cap Take 1 capsule by mouth at bedtime as needed. ALLERGIES: ALLERGIES Allergen Reactions Scopolamine Mental Status [...] pain, shortness of breath, persistent cough, severe headaches or abdominal pain. + hip pain see HPI The sensitive examination was discussed with the Patient or Patient's Authorized Senior Financial. As applicable, any other physician, advance practice provider, medical student, or other health professional student that will be observing or involved in the sensitive examination for educational or training purposes was discussed with the Patient or Authorized Senior Financial. The Patient or Authorized Senior Financial has agreed to proceed with the sensitive examination. (Sensitive examination includes inspection and/or palpation of the breasts, pelvis, prostate and anorectal regions) PHYSICAL EXAM: There were no vitals taken for this visit. General: well-nourished, healthy, white, female, alert and oriented x 3, calm Skin: warm, dry, skin color, texture, turgor normal Head/Eyes: normocephalic, atraumatic and anicteric Lymph nodes- The supraclavicular, axillary, and cervical regions are free of significant lymphadenopathy. Right breast-S/p partial mastectomy with well healed incision and Mild XRT changes. The skin, nipple and areola appear normal. There is no skin dimpling with movement of the pectoralis. Nipple inverted chronically. No discharge can [...] There is no tenderness noted with palpation. IMAGING Digital Breast Tomosynthesis was performed today and the patient will be notified of the results via my chart. The breasts are heterogeneously dense, which may obscure small masses. Finding 1: There are post-operative changes in both breasts. There is a biopsy marker seen in the right breast. Finding 2: There is an asymmetry in the superior right breast, posterior depth. This is best visualized on tomosynthesis MLO view slice # 6. Finding 1: Post-operative changes in both breasts are benign. Finding 2: The asymmetry in the superior right breast, posterior depth requires additional evaluation. Diagnostic mammogram with possible ultrasound is recommended. Assessment IMPRESSION/PLAN: Zenaida Evans is a 89 year old year old female with Abnormal Mammogram bilateral fibrocystic change, a history of right breast cancer (14 yr survivor), LEFT ALH of breast, insomnia and weight loss The clinical and mammographic findings were reviewed. Message sent to my chart regarding incomplete imaging. Orders placed for right diagnostic mammogram and possible ultrasound Her breast continue to be heterogeneously dense-Bi [...] breast cancer risk reduction and overall health. She will return in one year for annual exam and DBT mammogram pending results diagnostic imaging . She prefers to continue care in breast center. She will call me in the interim should she have any questions or concerns. I spent a total of 30 minutes on the date of the service which included preparing to see the patient, left-ue-rhoy patient care, completing clinical documentation, obtaining and/or reviewing separately obtained history, performing a medically appropriate examination, counseling and educating the patient/family/caregiver, ordering medications, tests, or procedures, communicating results to the patient/family/caregiver, and care coordination (not separately reported). Jitendra Escobedo APRN.CNP Medical Breast Specialist Women's Health Nurse Practitioner CC: Susannah Capellan MD [address] [place] [address] documented in this encounter [facility] 06-22-2025 Note HNO ID: [id number] Author: JITENDRA ESCOBEDO APRN.CNP Service: ? 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 [place] today for annual exam and DBT mammogram. This summer she had mild heart attack, and DVT in left leg. She is now on Eliquis. She has some concern as her O2 Sat levels are sometimes below 90. 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 She is also having left hip pain for 3 weeks for which she is scheduled to see orthopedic surgeon 07/06/25. She has had some weight loss as a result of her health ailments She denies any breast masses, pain, skin changes or nipple discharge. She denies any new family medical problems. 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 She underwent a right NL PM with [...] has been extracted from my note dated 01/07/24. Her vitamin D level was Vitamin D 25 Hydroxy (ng/mL) Date Value 02/28/2018 44.1 She takes vitamin D 2000 units. BMD: Yes, Date in [facility]: 01/02/21; lowest T Score - 0.8-Normal [...] CANCER SURVEILLANCE: Mammograms: Yes, Date in Epic: 01/07/24-right breast asymmetry; 01/12/24 diagnostic imaging results: negative Breast MRI: Yes, Date in Epic: 08/15/12; [...] 03/13/2011 no retinopathy detected -both eyes - [facility] - return in 1 year - Dr. 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 MASTECTOMY, PARTIAL Right 10/30/2011 Right NL PM/SLNs PAST SURGICAL HISTORY OF bilat vein s (more content not included)... [facility] 06-22-2025 Instructions Letitia Flores MA - 06/22/2025 1:54 PM EDT Thank you for trusting me with your breast care today. Please remember to schedule your follow-up visit as soon as possible. Discussed breast health recommendations including routine breast self-awareness, clinical breast exams; annual mammography, minimal alcohol use, no tobacco use and 150min / week of aerobic exercise per week as your heart, lungs and joints allow. Wearing a well fitting (as in getting an updated professional fitting if it is has been some time) supportive bra is helpful for most women as well. If you develop a breast lump, breast skin changes, nipple discharge or breast pain, please understand to call her breast health team for a clinical breast exam with the understanding that breast imaging may be recommended at that time. Your Breast Care Team, Jitendra Escobedo CNP, Medical Breast Specialist Rosalie Sweeney RN [phone] ([place]) Letitia Flores, Dog Sitter [phone] ([place]) documented in this encounter [facility] 06-16-2025 Telephone encounter Note Pharmacy electronically requests the following refill(s) Requested Prescriptions Pending Prescriptions Disp Refills cloNIDine TTS (CATAPRES-TTS) 0.1 mg/24 hr [Pharmacy Med Name: CLONIDINE 0.1 MG/DAY PATCH] 12 patch 2 Sig: Apply 1 patch as directed one time a week. Tara Orona MA Last office visit 05/14/2025 Future office visit 06/25/2025 [facility] 06-16-2025 Miscellaneous Notes Pharmacy electronically requests the following refill(s) Requested Prescriptions Pending Prescriptions Disp Refills cloNIDine TTS (CATAPRES-TTS) 0.1 mg/24 hr [Pharmacy Med Name: CLONIDINE 0.1 MG/DAY PATCH] 12 patch 2 Sig: Apply 1 patch as directed one time a week. Tara Orona MA Last office visit 05/14/2025 Future office visit 06/25/2025 documented in this encounter [facility] 06-11-2025 Telephone encounter Note Please assist in scheduling an appointment with ortho. [facility] 06-11-2025 Miscellaneous Notes Please assist in scheduling an appointment with ortho. documented in this encounter [facility] 06-08-2025 Note HNO ID: [id number] Author: CANDELARIA EDMONDSON RPFT Service: ? Author Type: Respiratory Therapist Type: Progress Notes Filed: 06/08/2025 14:17 Note Text: Patient instructed in the purpose, proper use, and care of a metered dose inhaler administration using a valved holding chamber. Discussed proper technique including breathing away from the device, having a slow inspiratory effort with lips sealed tightly around the mouthpiece and without creating the spacer to whistle, breathhold for 10 seconds at full inspiratory effort, and waiting between puffs of medication. Pt demonstrated use of device. Reviewed cleaning of device. Educational materials were given to patient. ILENE Solis [facility] 06-08-2025 History of Present illness Narrative Patient instructed in the purpose, proper use, and care of a metered dose inhaler administration using a valved holding chamber. Discussed proper technique including breathing away from the device, having a slow inspiratory effort with lips sealed tightly around the mouthpiece and without creating the spacer to whistle, breathhold for 10 seconds at full inspiratory effort, and waiting between puffs of medication. Pt demonstrated use of device. Reviewed cleaning of device. Educational materials were given to patient. ILENE Solis documented in this encounter [facility] 06-07-2025 Telephone encounter Note Pt LVM with office, requesting call-back to advise on how to use inhaler prescribed by Dr. Patricio. This RN called pt back - no answer, LVM with instructions to return call. [facility] 06-07-2025 Miscellaneous Notes Pt LVM with office, requesting call-back to advise on how to use inhaler prescribed by Dr. Patricio. This RN called pt back - no answer, LVM with instructions to return call. documented in this encounter [facility] 06-05-2025 Telephone encounter Note Patient given results and verbalized understanding of instructions given. Helga Chavez MA [facility] 06-05-2025 Miscellaneous Notes Patient given results and verbalized understanding of instructions given. Helga Chavez MA ----- Message from Marco Doan APRN.CNP sent at 06/05/2025 3:37 PM EDT ----- ----- Message ----- From: Radiology, O[place] In Sent: 06/05/2025 3:30 PM EDT To: [facility] Provider [place] Please inform patient that x-ray did not show any acute findings. Severe arthritis of hip noted. Continue plan of care as discussed Marco Doan APRN.CNP documented in this encounter [facility] 06-05-2025 Telephone encounter Note ----- Message from Marco Doan APRN.CNP sent at 06/05/2025 3:37 PM EDT ----- ----- Message ----- From: Radiology, Oru In Sent: 06/05/2025 3:30 PM EDT To: [facility] Provider [place] [facility] 06-05-2025 Telephone encounter Note Please inform patient that x-ray did not show any acute findings. Severe arthritis of hip noted. Continue plan of care as discussed Marco Doan APRN.BUSINESS PROFESSOR [facility] 06-05-2025 History of Present illness Narrative Radiology Service Progress Note PATIENT NAME: Zenaida Evans DATE OF SERVICE: June 05, 2025 TIME: 2:48 PM PATIENT IDENTITY VERIFICATION COMPLETED USING TWO (2) IDENTIFIERS: Name and Date of confirmed by patient verbally. FALL SCREENING: Has the patient had 2 falls in the last year or 1 fall with injury or currently using an Ambulatory Assistive Device (Walker, Cane, Wheelchair, Crutches, etc.)? No PATIENT GENDER DATA: Assigned female at . status: : No status: NO. PATIENT RELEVANT IMPLANT DATA REVIEWED: Yes PATIENT PRESENTS WITH AN IMPLANTABLE OR ATTACHED MARKETING SECRETARY: No RADIOLOGY DEPARTMENT: General X-ray: Exam(s) Completed: Pelvis X-Ray: Pelvis with Hip Left PERIPHERAL IV DATA: Not applicable SIGNED BY: AUGUSTIN Garrido) June 05, 2025 2:48 PM documented in this encounter [facility] 06-05-2025 Note HNO ID: [id number] Author: LAMONT RAUSCH RT(R) Service: ? Author Type: Breaker Machine Operator Type: Progress Notes Filed: 06/05/2025 15:03 Note Text: Radiology Service Progress Note PATIENT NAME: Zenaida Evans DATE OF SERVICE: June 05, 2025 TIME: 2:48 PM PATIENT IDENTITY VERIFICATION COMPLETED USING TWO (2) IDENTIFIERS: Name and Date of confirmed by patient verbally. FALL SCREENING: Has the patient had 2 falls in the last year or 1 fall with injury or currently using an Ambulatory Assistive Device (Walker, Cane, Wheelchair, Crutches, etc.)? No PATIENT GENDER DATA: Assigned female at . status: : No status: NO. PATIENT RELEVANT IMPLANT DATA REVIEWED: Yes PATIENT PRESENTS WITH AN IMPLANTABLE OR ATTACHED MARKETING SECRETARY: No RADIOLOGY DEPARTMENT: General X-ray: Exam(s) Completed: Pelvis X-Ray: Pelvis with Hip Left PERIPHERAL IV DATA: Not applicable SIGNED BY: RT Hema(R) June 05, 2025 2:48 PM [facility] 06-05-2025 Note HNO ID: [id number] Author: MARCO DOAN APRN.BUSINESS PROFESSOR Service: ? Author Type: Nurse Practitioner Type: Progress Notes Filed: 06/05/2025 15:37 Note Text: URGENT CARE FAM Angie Evans is a 89 year old female. Patient presents with: Hip Pain: left hip and thigh pain x 1 week, denies injury HPI Nontoxic-appearing 89-year-old female presents urgent care chief complaint left hip and thigh pain. Duration of symptoms 1 week. Associated symptoms left hip and thigh discomfort. Presents today for evaluation. OTC medications tramadol has not helped. Rates pain 5-6 out of 10. States pain started in front of her thigh has now moved to the right underneath her buttock. No traumatic injuries. No numbness no tingling. No incontinence or saddle anesthesia. No difficulty with ambulation. States pain is 1 out of 10 at rest 5-6 out of 10 with ambulation. No fevers. No rashes. Past medical history prescription medications allergies reviewed Review of Systems Constitutional: Negative for activity change, diaphoresis, fatigue and fever. Musculoskeletal: Negative for arthralgias, back pain, gait problem, joint swelling, myalgias, neck pain and neck stiffness. Hip pain Skin: Negative for pallor, rash and wound. Neurological: Negative for dizziness, seizures, syncope, weakness, light-headedness, numbness and headaches. Psychiatric/Behavioral: Negative for confusion. Objective BP 132/76 Pulse 86 Temp 36.7 ?C (98 ?F) Resp 16 Wt 59.4 kg (130 lb 15.3 oz) SpO2 94% BMI 21.56 kg/m? Physical Exam Constitutional: Appearance: Normal appearance. She is normal weight. HENT: Head: Normocephalic. Eyes: Conjunctiva/sclera: Conjunctivae normal. Cardiovascular: Rate and Rhythm: Normal rate. Pulmonary: Effort: Pulmonary effort is normal. Musculoskeletal: Cervical back: Normal range of motion. Legs: Comments: Point tenderness to palpation highlighted area. No erythema edema noted. No rashes. Mild discomfort with palpation over hip socket Skin: Findings: No rash. Neurological: General: No focal deficit present. Mental Status: She is alert and oriented to person, place, and time. Mental status is at baseline. {ASSESSMENT/PLAN: 1. Pain of left hip - ICD9: 719.45, ICD10: M25.552 - XR HIP GENERAL 3V PELV/AP/LAT LEFT Findings: Moderate bony demineralization. Pelvis: No fractures or dislocations are seen. Left hip: No fractures or dislocations are seen. Severe narrowing of the LEFT hip joint. No acute findings noted on hip x-ray. Severe narrowing of hip joint noted. Muscle skeletal versus osteo arthritis versus referred pain nerve pain. Will treat conservative Voltaren gel. We discussed PCP follow-up and physical therapy. 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 He is currently on Eliquis. We discussed red flag symptoms for ER evaluation. Patient was educated on supportive therapies. Patient will follow up with primary care provider as needed. Patient was instructed to immediately proceed to emergency room for any new, worsening, or symptoms lasting longer than anticipated. The patient's clinical presentation is otherwise unremarkable at this time. Based on exam and clinical finding, the patient is stable for discharge. Plan of care was discussed with patient. Patient verbalizes understanding and agrees to plan of care. This note was generated using [employer] software. It may contain errors in wording, punctuation, or spelling. Marco Doan APRN.BUSINESS PROFESSOR History and Record Review Clinical information obtained from an independent historian. History obtained from or confirmed by: parent. External record(s) reviewed: prior outpatient record. Disposition The patient was discharged. OTC Medications were advised: Procedures [facility] 06-05-2025 History of Present illness Narrative Images from the original note were not included. URGENT CARE FAM Angie Zenaida Evans is a 89 year old female. Patient presents with: Hip Pain: left hip and thigh pain x 1 week, denies injury HPI Nontoxic-appearing 89-year-old female presents urgent care chief complaint left hip and thigh pain. Duration of symptoms 1 week. Associated symptoms left hip and thigh discomfort. Presents today for evaluation. OTC medications tramadol has not helped. Rates pain 5-6 out of 10. States pain started in front of her thigh has now moved to the right underneath her buttock. No traumatic injuries. No numbness no tingling. No incontinence or saddle anesthesia. No difficulty with ambulation. States pain is 1 out of 10 at rest 5-6 out of 10 with ambulation. No fevers. No rashes. Past medical history prescription medications allergies reviewed Review of Systems Constitutional: Negative for activity change, diaphoresis, fatigue and fever. Musculoskeletal: Negative for arthralgias, back pain, gait problem, joint swelling, myalgias, neck pain and neck stiffness. Hip pain Skin: Negative for pallor, rash and wound. Neurological: Negative for dizziness, seizures, syncope, weakness, light-headedness, numbness and headaches. Psychiatric/Behavioral: Negative for confusion. Objective BP 132/76 Pulse 86 Temp 36.7 C (98 F) Resp 16 Wt 59.4 kg (130 lb 15.3 oz) SpO2 94% BMI 21.56 kg/m Physical Exam Constitutional: Appearance: Normal appearance. She is normal weight. HENT: Head: Normocephalic. Eyes: Conjunctiva/sclera: Conjunctivae normal. Cardiovascular: Rate and Rhythm: Normal rate. Pulmonary: Effort: Pulmonary effort is normal. Musculoskeletal: Cervical back: Normal range of motion. Legs: Comments: Point tenderness to palpation highlighted area. No erythema edema noted. No rashes. Mild discomfort with palpation over hip socket Skin: Findings: No rash. Neurological: General: No focal deficit present. Mental Status: She is alert and oriented to person, place, and time. Mental status is at baseline. {ASSESSMENT/PLAN: 1. Pain of left hip - ICD9: 719.45, ICD10: M25.552 - XR HIP GENERAL 3V PELV/AP/LAT LEFT Findings: Moderate bony demineralization. Pelvis: No fractures or dislocations are seen. Left hip: No fractures or dislocations are seen. Severe narrowing of the LEFT hip joint. No acute findings noted on hip x-ray. Severe narrowing of hip joint noted. Muscle skeletal versus osteo arthritis versus referred pain nerve pain. Will treat conservative Voltaren gel. We discussed PCP follow-up and physical therapy. 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 He is currently on Eliquis. We discussed red flag symptoms for ER evaluation. Patient was educated on supportive therapies. Patient will follow up with primary care provider as needed. Patient was instructed to immediately proceed to emergency room for any new, worsening, or symptoms lasting longer than anticipated. The patient's clinical presentation is otherwise unremarkable at this time. Based on exam and clinical finding, the patient is stable for discharge. Plan of care was discussed with patient. Patient verbalizes understanding and agrees to plan of care. This note was generated using [employer] software. It may contain errors in wording, punctuation, or spelling. Marco Doan APRN.URMILA History and Record Review Clinical information obtained from an independent historian. History obtained from or confirmed by: parent. External record(s) reviewed: prior outpatient record. Disposition The patient was discharged. OTC Medications were advised: Procedures documented in this encounter [facility] 06-05-2025 Telephone encounter Note Bob from [facility] calling- he has received documents. He states a 6 minute walk test is required to proceed. He is asking for orders for this testing to be placed and faxed over to him at [phone] [facility] 06-05-2025 Miscellaneous Notes Bob from [facility] calling- he has received documents. He states a 6 minute walk test is required to proceed. He is asking for orders for this testing to be placed and faxed over to him at [phone] [address] in this encounter [facility] 05-31-2025 Instructions Lucius Patricio MD - 05/31/2025 11:20 AM EDT ASSESSMENT AND PLAN: I have collected the history from the patient and chart. I have personally examined the patient, and have also independently reviewed the imaging and any available laboratory data. I addressed the questions of the patient, and patient has expressed understanding and acceptance of my answers. (J44.9) Chronic obstructive pulmonary disease, unspecified COPD type (HCC) (primary encounter diagnosis) Comment: Appears to be fairly controlled. We discussed different inhalers mechanism of action and technique of use. We also discussed the three main Goals of Obstructive Lung Disease Management: - Improving Breathing - Optimizing inhaler regimen and technique, quitting smoking when appropriate and O2 therapy if indicated - Improving quality of life - Pulmonary rehab as indicated - Prevention of exacerbations - Immunizations to be up to date, Smoking cessation when appropriate, avoiding sick contacts, Pulm Rehab and will call as soon as he develops early signs of URI or acute exacerbations. Spirometry 05/2025 - Moderate airflow obstruction, FEV1 66%, ++++ Significant bronchodilator response. Lung volumes 05/31/2025 - ++ Air trapping DLCO 44% pred CT CHEST 04/2025 -- No PE, micro nodules in RML ? Chronic. Small < 6 mm nodules Plan: - Start Bevespi inhaler 2 puffs twice daily Please call me with any signs of exacerbations as discussed during the visit Immunization history review: Pneumovax -- 11/2014 Prevnar 13 -- 11/2014 Prevnar 20 -- Optional Influenza -- Recommend annually RSV Vaccine - 11/2023 Pulmonary Rehab -- recommended - will place order for [place] at [facility] Follow Up: Return in about 3 months (around 08/31/2025). Lucius Patricio MD Pulmonary and Critical Care Medicine Staff Director of Chronic Cough [facility] Line Prep Cook[employer] pharmacy technician and Pulmonary Rehabilitation - [facility] 05/31/2025 documented in this encounter [facility] 05-31-2025 Note HNO ID: [id number] Author: LUCIUS PATRICIO MD Service: ? Author Type: Physician Type: Progress Notes Filed: 05/31/2025 11:21 Note Text: PULMONARY MEDICINE CONSULT Patient Name: Zenaida Evans PRIMARY CARE PHYSICIAN: Susannah Capellan MD REASON FOR CONSULT: NEW CONSULT Mild pulmonary hypertension (HCC) [I27.20] Hypoxia [R09.02] SOB (shortness of breath) [R06.02] REQUESTING PHYSICIAN: Susannah Capellan MD My final recommendations will be communicated to the requesting health care provider by way of the shared medical record for internal providers or letter via the [employer] for external providers. ASSESSMENT AND PLAN: I have collected the history from the patient and chart. I have personally examined the patient, and have also independently reviewed the imaging and any available laboratory data. I addressed the questions of the patient, and patient has expressed understanding and acceptance of my answers. (J44.9) Chronic obstructive pulmonary disease, unspecified COPD type (HCC) (primary encounter diagnosis) Comment: Appears to be fairly controlled. We discussed different inhalers mechanism of action and technique of use. We also discussed the three main Goals of Obstructive Lung Disease Management: - Improving Breathing - Optimizing inhaler regimen and technique, quitting smoking when appropriate and O2 therapy if indicated - Improving quality of life - Pulmonary rehab as indicated - Prevention of exacerbations - Immunizations to be up to date, Smoking cessation when appropriate, avoiding sick contacts, Pulm Rehab and will call as soon as he develops early signs of URI or acute exacerbations. Spirometry 05/2025 - Moderate airflow obstruction, FEV1 66%, ++++ Significant bronchodilator response. Lung volumes 05/31/2025 - ++ Air trapping DLCO 44% pred CT CHEST 04/2025 -- No PE, micro nodules in RML ? Chronic. Small < 6 mm nodules Plan: - Start Bevespi inhaler 2 puffs twice daily Please call me with any signs of exacerbations as discussed during the visit Immunization history review: Pneumovax -- 11/2014 Prevnar 13 -- 11/2014 Prevnar 20 -- Optional Influenza -- Recommend annually RSV Vaccine - 11/2023 Pulmonary Rehab -- recommended - will place order for [place] at [facility] Follow Up: Return in about 3 months (around 08/31/2025). Lucius Patricio MD Pulmonary and Critical Care Medicine Staff Director of Chronic Cough Clinic Line Prep Cookcomp[employer] pharmacy technician and Pulmonary Rehabilitation - [facility] 05/31/2025 ----- CHIEF COMPLAINT: Shortness of Breath/E HISTORY OF PRESENT ILLNESS: 05/31/2025 Zenaida Evans is a 89 year old female, with a medical history of , has a past medical history of Breast cancer ([facility]) (09/2011), Collagenous colitis (07/30/2017), Diarrhea, Diffuse cystic mastopathy, Dyspareunia, Essential hypertension, H/O complete eye exam (03/13/2011), hair thinning, Hormone replacement therapy (HRT) (1974-present), hx of low vitamin D treated (08/2007), PMH - PAST MEDICAL HISTORY OF, 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 who is here for evaluation and management of Shortness of Breath/E. PCP visit note 05/14/25 Zenaida Evans is a 89 year old female seen for Hospital Follow up. Zenaida Evans is a 89-year-old female, with a history of HFpEF, DVT, and orthostatic hypotension, presenting for follow-up after recent hospitalizations. Zenaida was recently hospitalized in [place] from April 27 through April 29 for BRIGHT and orthostatic hypotension. During this admission, she was also found to have hypoxia with SpO2 levels dropping to 85% in the ED. A heart catheterization on a prior admission revealed no significant stenosis, but a DVT was identified. She followed up with her technical support agent, Dr. Bautista, on May 07, who recommended continuing Farxiga 5 mg daily and discontinuing indapamide. She was also advised to establish care with a digital forensics examiner, which she has done with Dr. Patricio in [place] (who she will first see in [facility]). Zenaida reports ongoing occasional lightheadedness and dizziness, particularly in the first half of the day, which improves by mid-afternoon. She initially suspected these symptoms might be related to Eliquis or low oxygen levels but notes that the symptoms have persisted, though they are not as severe as before the discontinuation of indapaminde. She is currently taking Farxiga in the morning and we discussed switching to taking it at dinner time to see if it allev (more content not included)... [facility] 05-31-2025 History of Present illness Narrative Images from the original note were not included. PULMONARY MEDICINE CONSULT Patient Name: Zenaida Evans PRIMARY CARE PHYSICIAN: Susannah Capellan MD REASON FOR CONSULT: NEW CONSULT Mild pulmonary hypertension (HCC) [I27.20] Hypoxia [R09.02] SOB (shortness of breath) [R06.02] REQUESTING PHYSICIAN: Susannah Capellan MD My final recommendations will be communicated to the requesting health care provider by way of the shared medical record for internal providers or letter via the [employer] for external providers. ASSESSMENT AND PLAN: I have collected the history from the patient and chart. I have personally examined the patient, and have also independently reviewed the imaging and any available laboratory data. I addressed the questions of the patient, and patient has expressed understanding and acceptance of my answers. (J44.9) Chronic obstructive pulmonary disease, unspecified COPD type (HCC) (primary encounter diagnosis) Comment: Appears to be fairly controlled. We discussed different inhalers mechanism of action and technique of use. We also discussed the three main Goals of Obstructive Lung Disease Management: - Improving Breathing - Optimizing inhaler regimen and technique, quitting smoking when appropriate and O2 therapy if indicated - Improving quality of life - Pulmonary rehab as indicated - Prevention of exacerbations - Immunizations to be up to date, Smoking cessation when appropriate, avoiding sick contacts, Pulm Rehab and will call as soon as he develops early signs of URI or acute exacerbations. Spirometry 05/2025 - Moderate airflow obstruction, FEV1 66%, ++++ Significant bronchodilator response. Lung volumes 05/31/2025 - ++ Air trapping DLCO 44% pred CT CHEST 04/2025 -- No PE, micro nodules in RML ? Chronic. Small < 6 mm nodules Plan: - Start Bevespi inhaler 2 puffs twice daily Please call me with any signs of exacerbations as discussed during the visit Immunization history review: Pneumovax -- 11/2014 Prevnar 13 -- 11/2014 Prevnar 20 -- Optional Influenza -- Recommend annually RSV Vaccine - 11/2023 Pulmonary Rehab -- recommended - will place order for [place] at [facility] Follow Up: Return in about 3 months (around 08/31/2025). Lucius Patricio MD Pulmonary and Critical Care Medicine Staff Director of Chronic Cough Clinic Line Prep Cook[employer] pharmacy technician and Pulmonary Rehabilitation - [facility] 05/31/2025 CHIEF COMPLAINT: Shortness of Breath/E HISTORY OF PRESENT ILLNESS: 05/31/2025 Zenaida Evans is a 89 year old female, with a medical history of , has a past medical history of Breast cancer ([facility]) (09/2011), Collagenous colitis (07/30/2017), Diarrhea, Diffuse cystic mastopathy, Dyspareunia, Essential hypertension, H/O complete eye exam (03/13/2011), hair thinning, Hormone replacement therapy (HRT) (1974-present), hx of low vitamin D treated (08/2007), PMH - PAST MEDICAL HISTORY OF, 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 who is here for evaluation and management of Shortness of Breath/E. PCP visit note 05/14/25 Zenaida Evans is a 89 year old female seen for Hospital Follow up. Zenaida Evans is a 89-year-old female, with a history of HFpEF, DVT, and orthostatic hypotension, presenting for follow-up after recent hospitalizations. Zenaida was recently hospitalized in [place] from April 27 through April 29 for BRIGHT and orthostatic hypotension. During this admission, she was also found to have hypoxia with SpO2 levels dropping to 85% in the ED. A heart catheterization on a prior admission revealed no significant stenosis, but a DVT was identified. She followed up with her technical support agent, Dr. Bautista, on May 07, who recommended continuing Farxiga 5 mg daily and discontinuing indapamide. She was also advised to establish care with a digital forensics examiner, which she has done with Dr. Patricio in [place] (who she will first see in [facility]). Zenaida reports ongoing occasional lightheadedness and dizziness, particularly in the first half of the day, which improves by mid-afternoon. She initially suspected these symptoms might be related to Eliquis or low oxygen levels but notes that the symptoms have persisted, though they are not as severe as before the discontinuation of indapaminde. She is currently taking Farxiga in the morning and we discussed switching to taking it at dinner time to see if it alleviates her symptoms. She denies taking nifedipine (Procardia) despite it being listed on her discharge medications from [facility]. She monitors her blood pressure regularly, noting it remains steady in the 130s/70s, with a recent reading of 138/71 recorded in her chart. She also monitors her oxygen levels at home, reporting readings of 92-93%, though she notes this is lower than her previous readings of 97-98%. An ultrasound on May 13 revealed a 1.6 cm complex cystic lesion in the left upper pole of the kidney, with a recommendation for a contrast-enhanced MRI if clinically warranted. She has not yet scheduled the MRI. Zenaida is a former smoker, having quit in her early 30s. She is currently managing stress related to her health and caregiving responsibilities for her . She has a support system in place, including family and friends who assist with meals and transportation. Interval HPI 05/31/2025 - today, patient reports Dyspnea: - Dyspnea on exertion, particularly with elevation changes (e.g., stairs, hills). - Recent decrease in energy levels. - Home SpO2 readings between 92-93%. - Denies wheezing or nocturnal dyspnea. - No history of asthma or bronchitis. - Former smoker, approximately half a pack per day for 13 years, quit over 60 years ago. - Denies current cough; had a productive cough a month ago following a possible aspiration event. Heart Failure: - Recent echocardiogram reported as normal. - Experiencing some leg edema. - Taking Labetalol, Eliquis, and Farxiga. Recent Hospitalizations: - Hospitalized twice in the last month. - Experienced dizziness post-hospitalization; did not fill a new heart medication prescribed during the hospital stay. - Reports a blood clot found during hospitalization has resolved. Other Symptoms: - Intermittent nausea. - Increased nocturia due to increased fluid intake. - Severe leg pain for about a week, making it difficult to wear shoes. - Denies headaches, dry eyes, dry mouth, chest pain, skin rash, or dizziness. Patient DENIES weight loss, fever, chills, night sweats, hemoptysis MMRC Dyspnea Scale: 05/31/2025 0. Not troubled by breathlessness except on strenuous exercise Short of breath when hurrying or walking up a slight hill Walks slower than contemporaries on the level because of breathlessness, or has to stop for breath when walking at own pace Stops for breath after about 100 m or after a few minutes on the level Too breathless to leave the house, or breathless when dressing or undressing Lung Disease Review Symptoms: productive Cough - resolved, ++ Shortness of Breath/E, ++ chest tightness. 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 Diarrhea hx of colitis Diffuse cystic mastopathy Dyspareunia Essential hypertension H/O complete eye exam 03/13/2011 no retinopathy detected -both eyes - [facility] - return in 1 year - Dr. 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 MASTECTOMY, PARTIAL Right 10/30/2011 Right NL PM/SLNs [...] other (healthy) Son Breast Cancer Maternal Aunt SOCIAL HISTORY[1] ALLERGIES: ALLERGIES Allergen Reactions Scopolamine Mental Status [...] Hcl GI Upset constipation CURRENT OUTPATIENT MEDICATIONS: dapagliflozin propanediol (FARXIGA) 5 mg tablet Take 1 tablet by mouth daily with breakfast. ELIQUIS 2.5 mg tab(s) Take 2.5 mg by mouth two times a day. ondansetron (ZOFRAN) 4 mg tablet Take by mouth every 8 hours as needed for nausea/vomiting. labetalol (TRANDATE) 200 mg tablet Take 1 [...] leave in for 3-5 minutes before rinsing. MULTIVITAMIN ORAL Take 1 tablet by mouth once daily. Melatonin 5 mg cap Take 1 capsule by mouth at bedtime as needed. REVIEW OF SYSTEMS Constitutional: (+) fatigue Head: (-) headache Eyes: (-) dry eyes Ears/Nose/Mouth/Throat: (-) nasal congestion, (-) rhinorrhea, (-) dry mouth, (-) sinus pain Cardiovascular: (+) chest tightness, (+) leg swelling, (-) chest pain Respiratory: (+) exertional dyspnea, (-) cough, (-) wheezing Gastrointestinal: (+) nausea, (-) vomiting, (-) diarrhea, (-) blood in stool Genitourinary: (+) nocturia Musculoskeletal: (+) right leg pain The remainder of the ROS was negative. PHYSICAL EXAMINATION: VITAL SIGNS: BP 176/70[provider notified[ Pulse 62 SpO2 96% General appearance: well appearing, alert, and in no acute distress Skin: skin color, texture, turgor normal, no rashes or lesions Eyes: Anicteric sclera. Pupils are equally round and reactive to light. Extraocular movements are intact. ENT: No oral thrush or sinus pressure Heme/Lymph:Supple, no adenopathy Lungs: diminished breath sounds bilaterally with scattered wheezing with forced expiration. Heart: RRR without murmur, gallop, or rubs. No ectopy GI: Abdomen soft, non-tender. Bowel sounds normal. No masses, organomegaly Musculoskeletal: No significant peripheral edema, or skin discoloration. Good capillary refill. PSYCH: Alert and Oriented x 3. Neuro: Gait Normal - age appropriate, No gross neurological focal deficits, sensation grossly normal DATA: Diagnostic tests reviewed for today's visit, films/specimens were personally reviewed by me: Most recent labs and imaging results. Most recent PFTS and echo Latest Ref Rng 05/21/2025 WBC 3.70 - 11.00 k/uL 4.40 RBC 3.90 - 5.20 m/uL 3.65 (L) Hemoglobin 11.5 - 15.5 g/dL 11.3 (L) Hematocrit 36.0 - 46.0 % 35.0 (L) MCV 80.0 - 100.0 fL 95.9 MCH 26.0 - 34.0 pg 31.0 MCHC 30.5 - 36.0 g/dL 32.3 RDW-CV 11.5 - 15.0 % 13.0 Platelet Count 150 - 400 k/uL 206 MPV 9.0 - 12.7 fL 9.1 Neut% % 42.5 Abs Neut (ANC) 1.45 - 7.50 k/uL 1.87 Lymph% % 40.9 Abs Lymph 1.00 - 4.00 k/uL 1.80 White% % 13.2 Abs White <0.87 k/uL 0.58 Eosin% % 2.5 Abs Eosin <0.46 k/uL 0.11 Baso% % 0.7 Abs Baso <0.11 k/uL 0.03 Immature Gran % % 0.2 IMMATURE GRANS (ABS) <0.10 k/uL <0.03 NRBC /100 WBC 0.0 Absolute nRBC <0.01 k/uL <0.01 DTYPE Auto Latest Ref Rng 05/09/2025 Glucose 74 - 99 mg/dL 109 (H) BUN 7 - 21 mg/dL 41 (H) Creatinine 0.58 - 0.96 mg/dL 1.46 (H) Sodium 136 - 144 mmol/L 139 Potassium 3.7 - 5.1 mmol/L 4.2 Chloride 98 - 107 mmol/L 100 CO2 22 - 30 mmol/L 25 Anion Gap 8 - 15 mmol/L 14 Calcium 8.5 - 10.2 mg/dL 10.3 (H) eGFR >=60 mL/min/1.73m 34 (L) OTHER TESTING: US DVT 05/21/25 IMPRESSION: Negative study for proximal DVT in the left lower extremity. Negative study for calf DVT in the left lower extremity. Negative study for superficial thrombophlebitis in the imaged segments of the left lower extremity. CXR 05/31/2025 Last XR Chest - Impression Only XR CHEST 2V FRONTAL/LAT Exam End: 07/14/2024 9:31 AM (Final result) Impression: IMPRESSION: No acute radiographic abnormality. ... CT CHEST 04/2025 20 PFTs 05/2025 PRE-BRONCH POST-BRONCH Pratima LLN Pred ULN %Pred ZScore Pratima %Pred %Chg ZScore SPIROMETRY FVC 2.00 1.72 2.54 3.40 78 -1.07 2.34 91 13 -0.40 FEV1 1.26 1.25 1.89 2.48 66 -1.62 1.45 76 9 -1.15 FEV1/FVC 0.63 0.63 0.77 0.88 81 -1.62 0.62 80 -1 -1.72 FEFMax 3.70 2.28 4.06 5.84 91 -0.33 3.99 98 7 -0.06 FEF50 0.80 1.15 2.76 4.36 29 -2.00 1.15 41 43 -1.64 FIF50 1.35 2.19 62 FEF50/FIF50 0.59 90-100 0.53 -11 FIVC 1.96 2.04 4 HNF14-00 0.65 0.52 1.37 2.73 47 -1.33 0.97 70 49 -0.66 ExpiredTime 5.39 6.80 26 TimeToFEFMax 0.12 0.10 -21 FLO 0.08 0.07 -17 VolExtrap% 4 3 -29 LUNG VOLUMES FRC(Pleth) 3.90 2.15 3.01 4.10 129 1.36 ERV 1.09 0.85 128 RV(Pleth) 3.61 1.31 2.29 3.58 157 1.68 SVC 1.94 1.72 2.54 3.40 76 -1.20 IC 0.85 1.69 49 TLC(Pleth) 5.08 3.95 5.09 6.40 99 -0.01 RV/TLC(Pleth) 71 31 46 61 156 2.73 LUNG DIFFUSION DLCOunc 8.23 13.39 18.40 24.72 44 -3.93 DLCOStdPB 8.09 13.39 18.40 24.72 43 -4.00 DLCORefHb 8.09 17.09 47 VA 3.59 3.57 4.56 5.66 78 -1.61 Kco 2.25 2.97 3.97 5.11 56 -3.00 Hgb 11.30 12-18 ECHO 04/03/2025 Last Echocardiogram ECHO Collected: 04/03/2025 10:26 AM (Final result) Narrative: Echocardiography Report: Transthoracic Echo Main [place] J1-5 Date of service: 04/03/2025 10:26:57 AM LEARNING Ordering physician: PAUL BAUTISTA Exam indication: HF Technologist: Slime Dahl Interpreting physician: Joe Herrera MD PATIENT: Name: MRS. ZENAIDA EVANS [...] Doppler. PERICARDIUM There is no pericardial effusion. Impression: CONCLUSIONS: - Technically difficult exam due to [...] * * Final * * * Written and verbal health teaching given to patient, patient verbalizes understanding and agrees with treatment plan. Electronically Signed: Lucius Patricio MD May 31, 2025 [1] Social History Tobacco Use Smoking status: Former [...] Drug use: No documented in this encounter [facility] 05-21-2025 History of Present illness Narrative Radiology Service Progress Note PATIENT NAME: Zenaida Evans DATE OF SERVICE: May 21, 2025 TIME: 11:00 AM PATIENT IDENTITY VERIFICATION COMPLETED USING TWO (2) IDENTIFIERS: Name and Date of confirmed by patient verbally. FALL SCREENING: Has the patient had 2 falls in the last year or 1 fall with injury or currently using an Ambulatory Assistive Device (Walker, Cane, Wheelchair, Crutches, etc.)? No PATIENT GENDER DATA: Assigned female at . status: : No status: N/A PATIENT RELEVANT IMPLANT DATA REVIEWED: Not Applicable PATIENT PRESENTS WITH AN IMPLANTABLE OR ATTACHED MARKETING SECRETARY: No RADIOLOGY DEPARTMENT: Ultrasound PERIPHERAL IV DATA: Not applicable SIGNED BY: Tara Crabtree RDMS May 21, 2025 11:00 AM documented in this encounter [facility] 05-21-2025 Note HNO ID: [id number] Author: TARA CRABTREE RDMS Service: Radiology Author Type: Supervisor Inspection Department Type: Progress Notes Filed: 05/21/2025 11:01 Note Text: Radiology Service Progress Note PATIENT NAME: Zenaida Evans DATE OF SERVICE: May 21, 2025 TIME: 11:00 AM PATIENT IDENTITY VERIFICATION COMPLETED USING TWO (2) IDENTIFIERS: Name and Date of confirmed by patient verbally. FALL SCREENING: Has the patient had 2 falls in the last year or 1 fall with injury or currently using an Ambulatory Assistive Device (Walker, Cane, Wheelchair, Crutches, etc.)? No PATIENT GENDER DATA: Assigned female at . status: : No status: N/A PATIENT RELEVANT IMPLANT DATA REVIEWED: Not Applicable PATIENT PRESENTS WITH AN IMPLANTABLE OR ATTACHED MARKETING SECRETARY: No RADIOLOGY DEPARTMENT: Ultrasound PERIPHERAL IV DATA: Not applicable SIGNED BY: Tara Crabtree RDMS May 21, 2025 11:00 AM [facility] 05-18-2025 History of Present illness Narrative Radiology Service Progress Note DATE OF SERVICE: May 18, 2025 TIME: 12:39 PM PATIENT IDENTITY VERIFICATION COMPLETED USING TWO (2) STANDARD IDENTIFIERS: Name and Date of confirmed by patient verbally. FALL SCREENING: Has the patient had 2 falls in the last year or 1 fall with injury or currently using an Ambulatory Assistive Device (Walker, Cane, Wheelchair, Crutches, etc.)? No PATIENT GENDER DATA: Assigned female at . status: : No status: NO. PATIENT RELEVANT IMPLANT DATA REVIEWED: Yes PATIENT PRESENTS WITH AN IMPLANTABLE OR ATTACHED MARKETING SECRETARY: No ALLERGIES: Reviewed and unchanged CONTRAST ALLERGY: NO. EXAM: MRI - CONTRAST TYPE: GROUP II PERIPHERAL IV DATA: Ambulatory: A peripheral IV was started in the Right antecubital site with a Angio cath: 22 gauge. RADIOLOGY DEPARTMENT: MR; Exam(s) Completed: Body: Renal. Aromatherapy Administered: No SIGNATURE: Rosalie Appiah, RT(R) PATIENT NAME: Zenaida Evans DATE: May 18, 2025 TIME: 12:39 PM documented in this encounter [facility] 05-18-2025 Note HNO ID: [id number] Author: ROSALIE APPIAH RT(R) Service: ? Author Type: Technologist Type: Progress Notes Filed: 05/18/2025 12:40 Note Text: Radiology Service Progress Note DATE OF SERVICE: May 18, 2025 TIME: 12:39 PM PATIENT IDENTITY VERIFICATION COMPLETED USING TWO (2) STANDARD IDENTIFIERS: Name and Date of confirmed by patient verbally. FALL SCREENING: Has the patient had 2 falls in the last year or 1 fall with injury or currently using an Ambulatory Assistive Device (Walker, Cane, Wheelchair, Crutches, etc.)? No PATIENT GENDER DATA: Assigned female at . status: : No status: NO. PATIENT RELEVANT IMPLANT DATA REVIEWED: Yes PATIENT PRESENTS WITH AN IMPLANTABLE OR ATTACHED MARKETING SECRETARY: No ALLERGIES: Reviewed and unchanged CONTRAST ALLERGY: NO. EXAM: MRI - CONTRAST TYPE: GROUP II PERIPHERAL IV DATA: Ambulatory: A peripheral IV was started in the Right antecubital site with a Angio cath: 22 gauge. RADIOLOGY DEPARTMENT: MR; Exam(s) Completed: Body: Renal. Aromatherapy Administered: No SIGNATURE: RT Ron(R) PATIENT NAME: Zenaida Evans DATE: May 18, 2025 TIME: 12:39 PM [facility] 05-14-2025 Telephone encounter Note Pt's MRI is scheduled for 05/18 and Urology is scheduled 06/07. [facility] 05-14-2025 Miscellaneous Notes Pt's MRI is scheduled for 05/18 and Urology is scheduled 06/07. Please assist patient in scheduling mri of the kidney and then follow up with Urology (Dr. Silva) after the MRI. documented in this encounter [facility] 05-14-2025 Telephone encounter Note Please assist patient in scheduling mri of the kidney and then follow up with Urology (Dr. Silva) after the MRI. [facility] 05-14-2025 Note HNO ID: [id number] Author: SUSANNAH CAPELLAN MD Service: ? Author Type: Physician Type: Progress Notes Filed: 05/14/2025 12:42 Note Text: DISTANCE HEALTH VISIT This Team Access Model visit is a virtual encounter. It required patient-provider interaction for the medical decision making as documented below. I have communicated my name and active licensure. The patient's identity and physical location were verified at the time of this visit. Either the patient or their legal in store marketing representative has been informed of the risks and benefits of -- and alternatives to -- treatment through a remote evaluation and consents to proceed with the evaluation remotely. Recording using KineMed software for draft documentation of the visit was discussed with the patient/authorized in store marketing representative; all questions welcomed and answered. Patient/authorized in store marketing representative agreed to proceed Zenaida Evans is a 89 year old female seen for Hospital Follow up. Zenaida Evans is a 89-year-old female, with a history of HFpEF, DVT, and orthostatic hypotension, presenting for follow-up after recent hospitalizations. Zenaida was recently hospitalized in [place] from April 27 through April 29 for BRIGHT and orthostatic hypotension. During this admission, she was also found to have hypoxia with SpO2 levels dropping to 85% in the ED. A heart catheterization on a prior admission revealed no significant stenosis, but a DVT was identified. She followed up with her technical support agent, Dr. Bautista, on May 07, who recommended continuing Farxiga 5 mg daily and discontinuing indapamide. She was also advised to establish care with a digital forensics examiner, which she has done with Dr. Patricio in [place] (who she will first see in [facility]). Zenaida reports ongoing occasional lightheadedness and dizziness, particularly in the first half of the day, which improves by mid-afternoon. She initially suspected these symptoms might be related to Eliquis or low oxygen levels but notes that the symptoms have persisted, though they are not as severe as before the discontinuation of indapaminde. She is currently taking Farxiga in the morning and we discussed switching to taking it at dinner time to see if it alleviates her symptoms. She denies taking nifedipine (Procardia) despite it being listed on her discharge medications from [facility]. She monitors her blood pressure regularly, noting it remains steady in the 130s/70s, with a recent reading of 138/71 recorded in her chart. She also monitors her oxygen levels at home, reporting readings of 92-93%, though she notes this is lower than her previous readings of 97-98%. An ultrasound on May 13 revealed a 1.6 cm complex cystic lesion in the left upper pole of the kidney, with a recommendation for a contrast-enhanced MRI if clinically warranted. She has not yet scheduled the MRI. Zenaida is a former smoker, having quit in her early 30s. She is currently managing stress related to her health and caregiving responsibilities for her . She has a support system in place, including family and friends who assist with meals and transportation. HISTORY REVIEWED (electronic chart updated): - medical history - medications - allergies REVIEW OF SYSTEMS: Neurological: (+) dizziness, (+) lightheadedness Psychiatric: (+) stress Otherwise as in HPI PHYSICAL EXAMINATION: VIDEO EXAM: (if done, performed via video enabled technology) GENERAL: alert and appropriate, in no distress, well-hydrated, well nourished, and happy, smiling, interactive RESPIRATORY: breathing non-labored Latest Ref Rng 05/09/2025 WBC 3.70 - 11.00 k/uL 4.55 RBC 3.90 - 5.20 m/uL 3.82 (L) Hemoglobin 11.5 - 15.5 g/dL 11.9 Hematocrit 36.0 - 46.0 % 35.5 (L) MCV 80.0 - 100.0 fL 92.9 MCH 26.0 - 34.0 pg 31.2 MCHC 30.5 - 36.0 g/dL 33.5 RDW-CV 11.5 - 15.0 % 12.6 Platelet Count 150 - 400 k/uL 184 MPV 9.0 - 12.7 fL 9.3 Neut% % 49.1 Abs Neut (ANC) 1.45 - 7.50 k/uL 2.23 Lymph% % 36.7 Abs Lymph 1.00 - 4.00 k/uL 1.67 White% % 11.0 Abs White <0.87 k/uL 0.50 Eosin% % 2.6 Abs Eosin <0.46 k/uL 0.12 Baso% % 0.4 Abs Baso <0.11 k/uL <0.03 Immature Gran % % 0.2 IMMATURE GRANS (ABS) <0.10 k/uL <0.03 NRBC /100 WBC 0.0 Absolute nRBC <0.01 k/uL <0.01 DTYPE Auto Glucose 74 - 99 mg/dL 109 (H) BUN 7 - 21 mg/dL 41 (H) Creatinine 0.58 - 0.96 mg/dL 1.46 (H) Sodium 136 - 144 mmol/L 139 Potassium 3.7 - 5.1 mmol/L 4.2 Chloride 98 - 107 mmol/L 100 CO2 22 - 30 mmol/L 25 Anion Gap 8 - 15 mmol/L 14 Calcium 8.5 - 10.2 mg/dL 10.3 (H) eGFR >=60 mL/min/1.73m? 34 (L) TSH 0.270 - 4.200 mIU/L 0.623 Legend: (L) Low (H) High # Acquired complex cyst of kidney (N28.1) # Other specified disorders of kidney and ureter (N28.89) - Ultrasound on May 13 revealed a 1.6 cm complex cystic lesion in the left upper pole. Ordered contrast-enhanced MRI of the kidney to further evaluate the lesion (more content not included)... [facility] 05-14-2025 History of Present illness Narrative DISTANCE HEALTH VISIT This Team Access Model visit is a virtual encounter. It required patient-provider interaction for the medical decision making as documented below. I have communicated my name and active licensure. The patient's identity and physical location were verified at the time of this visit. Either the patient or their legal in store marketing representative has been informed of the risks and benefits of -- and alternatives to -- treatment through a remote evaluation and consents to proceed with the evaluation remotely. Recording using KineMed software for draft documentation of the visit was discussed with the patient/authorized in store marketing representative; all questions welcomed and answered. Patient/authorized in store marketing representative agreed to proceed Zenaida Evans is a 89 year old female seen for Hospital Follow up. Zenaida Evans is a 89-year-old female, with a history of HFpEF, DVT, and orthostatic hypotension, presenting for follow-up after recent hospitalizations. Zenaida was recently hospitalized in [place] from April 27 through April 29 for BRIGHT and orthostatic hypotension. During this admission, she was also found to have hypoxia with SpO2 levels dropping to 85% in the ED. A heart catheterization on a prior admission revealed no significant stenosis, but a DVT was identified. She followed up with her technical support agent, Dr. Bautista, on May 07, who recommended continuing Farxiga 5 mg daily and discontinuing indapamide. She was also advised to establish care with a digital forensics examiner, which she has done with Dr. Patricio in [place] (who she will first see in [facility]). Zenaida reports ongoing occasional lightheadedness and dizziness, particularly in the first half of the day, which improves by mid-afternoon. She initially suspected these symptoms might be related to Eliquis or low oxygen levels but notes that the symptoms have persisted, though they are not as severe as before the discontinuation of indapaminde. She is currently taking Farxiga in the morning and we discussed switching to taking it at dinner time to see if it alleviates her symptoms. She denies taking nifedipine (Procardia) despite it being listed on her discharge medications from [facility]. She monitors her blood pressure regularly, noting it remains steady in the 130s/70s, with a recent reading of 138/71 recorded in her chart. She also monitors her oxygen levels at home, reporting readings of 92-93%, though she notes this is lower than her previous readings of 97-98%. An ultrasound on May 13 revealed a 1.6 cm complex cystic lesion in the left upper pole of the kidney, with a recommendation for a contrast-enhanced MRI if clinically warranted. She has not yet scheduled the MRI. Zenaida is a former smoker, having quit in her early 30s. She is currently managing stress related to her health and caregiving responsibilities for her . She has a support system in place, including family and friends who assist with meals and transportation. HISTORY REVIEWED (electronic chart updated): - medical history - medications - allergies REVIEW OF SYSTEMS: Neurological: (+) dizziness, (+) lightheadedness Psychiatric: (+) stress Otherwise as in HPI PHYSICAL EXAMINATION: VIDEO EXAM: (if done, performed via video enabled technology) GENERAL: alert and appropriate, in no distress, well-hydrated, well nourished, and happy, smiling, interactive RESPIRATORY: breathing non-labored Latest Ref Rng 05/09/2025 WBC 3.70 - 11.00 k/uL 4.55 RBC 3.90 - 5.20 m/uL 3.82 (L) Hemoglobin 11.5 - 15.5 g/dL 11.9 Hematocrit 36.0 - 46.0 % 35.5 (L) MCV 80.0 - 100.0 fL 92.9 MCH 26.0 - 34.0 pg 31.2 MCHC 30.5 - 36.0 g/dL 33.5 RDW-CV 11.5 - 15.0 % 12.6 Platelet Count 150 - 400 k/uL 184 MPV 9.0 - 12.7 fL 9.3 Neut% % 49.1 Abs Neut (ANC) 1.45 - 7.50 k/uL 2.23 Lymph% % 36.7 Abs Lymph 1.00 - 4.00 k/uL 1.67 White% % 11.0 Abs White <0.87 k/uL 0.50 Eosin% % 2.6 Abs Eosin <0.46 k/uL 0.12 Baso% % 0.4 Abs Baso <0.11 k/uL <0.03 Immature Gran % % 0.2 IMMATURE GRANS (ABS) <0.10 k/uL <0.03 NRBC /100 WBC 0.0 Absolute nRBC <0.01 k/uL <0.01 DTYPE Auto Glucose 74 - 99 mg/dL 109 (H) BUN 7 - 21 mg/dL 41 (H) Creatinine 0.58 - 0.96 mg/dL 1.46 (H) Sodium 136 - 144 mmol/L 139 Potassium 3.7 - 5.1 mmol/L 4.2 Chloride 98 - 107 mmol/L 100 CO2 22 - 30 mmol/L 25 Anion Gap 8 - 15 mmol/L 14 Calcium 8.5 - 10.2 mg/dL 10.3 (H) eGFR >=60 mL/min/1.73m 34 (L) TSH 0.270 - 4.200 mIU/L 0.623 Legend: (L) Low (H) High # Acquired complex cyst of kidney (N28.1) # Other specified disorders of kidney and ureter (N28.89) - Ultrasound on May 13 revealed a 1.6 cm complex cystic lesion in the left upper pole. Ordered contrast-enhanced MRI of the kidney to further evaluate the lesion. Referral to Dr. Silva, urologist in [place], for follow-up after MRI. [facility] will contact patient to arrange appointments. # 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 disease, or chronic kidney disease (HCC) (I13.0) # Left ventricular diastolic dysfunction, NYHA class 1 (I51.89) - Recent hospitalization for acute kidney injury and orthostatic hypotension. Follow-up with technical support agent Dr. Bautista on May 07; indapamide discontinued, Farxiga 5 mg daily continued. Discussed potential side effects of Farxiga, including diuretic properties contributing to morning dizziness. Advised to take Farxiga in the evening to see if symptoms improve. Ordered basic metabolic panel in one month to monitor kidney function. Scheduled follow-up appointment on June 25 at 0940. 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 Discussed with patient that a nuclear stress test is likely unnecessary post-catheterization. Advised patient to confirm with Dr. Bautista. # Screening for depression (Z13.31) # Encounter for screening examination for other mental health and behavioral disorders (Z13.39) - Discussed stress management and its potential impact on physical health. Patient managing multiple stressors, including recent hospitalizations and caregiving responsibilities. Patient states she is currently "ignoring it" referring to situational stress related depressive sx and anxiety. # Mild pulmonary hypertension (HCC) (I27.20) # Hypoxia (R09.02) - Mild pulmonary hypertension noted on echocardiogram. Recent episodes of hypoxia with SpO2 dropping to 85% during ER visit. Ordered nighttime pulse oximetry testing through [facility]; provided patient with [facility]'s contact information ([phone]) to ensure test completion. Patient has an upcoming appointment with digital forensics examiner Dr. Patricio on May 31. # History of tobacco use (Z87.891) - Patient quit smoking in early 30s; no tobacco use for over 60 years. Return in about 6 weeks (around 06/25/2025). During this patient visit I have spent approximately 25 minutes on the visit with patient out of 33 in counselling regarding treatment options, medications, test results, and coordinating care and coordinating care. I spent an additional 8 minutes reviewing outside notes from [facility], results and setting up message to schedulers. There are no Patient Instructions on file for this visit. Susannah Capellan MD documented in this encounter [facility] 05-09-2025 History of Present illness Narrative Radiology Service Progress Note PATIENT NAME: Zenaida Evans DATE OF SERVICE: May 09, 2025 TIME: 1:41 PM PATIENT IDENTITY VERIFICATION COMPLETED USING TWO (2) IDENTIFIERS: Name and Date of confirmed by patient verbally. FALL SCREENING: Has the patient had 2 falls in the last year or 1 fall with injury or currently using an Ambulatory Assistive Device (Walker, Cane, Wheelchair, Crutches, etc.)? Yes, Patient High Risk for Falls What interventions were put in place to prevent falls during this visit? Increased Observations by Caregivers PATIENT GENDER DATA: Assigned female at . status: : No status: NO. PATIENT RELEVANT IMPLANT DATA REVIEWED: Not Applicable PATIENT PRESENTS WITH AN IMPLANTABLE OR ATTACHED MARKETING SECRETARY: No RADIOLOGY DEPARTMENT: Ultrasound PERIPHERAL IV DATA: Not applicable SIGNED BY: Elisabeth Martinez RDMS May 09, 2025 1:41 PM documented in this encounter [facility] 05-09-2025 Note HNO ID: [id number] Author: ELISABETH MARTINEZ RDMS Service: ? Author Type: Breaker Machine Operator Type: Progress Notes Filed: 05/09/2025 13:42 Note Text: Radiology Service Progress Note PATIENT NAME: Zenaida Evans DATE OF SERVICE: May 09, 2025 TIME: 1:41 PM PATIENT IDENTITY VERIFICATION COMPLETED USING TWO (2) IDENTIFIERS: Name and Date of confirmed by patient verbally. FALL SCREENING: Has the patient had 2 falls in the last year or 1 fall with injury or currently using an Ambulatory Assistive Device (Walker, Cane, Wheelchair, Crutches, etc.)? Yes, Patient High Risk for Falls What interventions were put in place to prevent falls during this visit? Increased Observations by Caregivers PATIENT GENDER DATA: Assigned female at . status: : No status: NO. PATIENT RELEVANT IMPLANT DATA REVIEWED: Not Applicable PATIENT PRESENTS WITH AN IMPLANTABLE OR ATTACHED MARKETING SECRETARY: No RADIOLOGY DEPARTMENT: Ultrasound PERIPHERAL IV DATA: Not applicable SIGNED BY: Elisabeth Martinez RDMS May 09, 2025 1:41 PM [facility] 05-07-2025 Telephone encounter Note Re-faxed order to [facility] at [phone] [facility] 05-07-2025 Miscellaneous Notes Re-faxed order to [facility] at [phone] Order re-written [facility] calling back and the fax is still coming back blacked out Can you try faxing at a different fax machine? Call back to [phone] when done Re-faxed order to [facility] at [phone] Can from [facility] calling from cell [phone] office number [phone]. Can states they received a fax for an overnight pulse oximetry study but the fax was dark and difficult to read. Can is wondering if a face sheet and the order can be resent to fax number documented in this encounter [facility] 05-07-2025 Telephone encounter Note Order re-written [facility] 05-07-2025 Telephone encounter Note [facility] calling back and the fax is still coming back blacked out Can you try faxing at a different fax machine? Call back to [phone] [facility] 05-07-2025 Telephone encounter Note Re-faxed order to [facility] at [phone] [facility] 05-07-2025 Instructions Matt Pelaez DO - 05/07/2025 9:42 AM EDT You can continue on farxiga 5 mg You can stop your indapamide. You can take lasix as needed based on your weights. Please establish with a digital forensics examiner Follow up in 3 months. Will discuss BP meds at that time documented in this encounter [facility] 05-07-2025 Telephone encounter Note Can from [facility] calling from cell [phone] office number [phone]. Can states they received a fax for an overnight pulse oximetry study but the fax was dark and difficult to read. Can is wondering if a face sheet and the order can be resent to fax number [facility] 05-07-2025 Note HNO ID: [id number] Author: PAUL BAUTISTA MD Service: ? Author Type: Physician Type: Progress Notes Filed: 05/08/2025 12:20 Note Text: Heart, Vascular and Thoracic [facility] SECTION OF HEART FAILURE and CARDIAC TRANSPLANT MEDICINE OUTPATIENT VISIT DATE May 07, 2025 OUTPATIENT VISIT TYPE Established Patient PRIMARY CARE PHYSICIAN: Susannah Capellan [address] [place] [id number] CHIEF COMPLAINT: shortness of breath, lightheadedness What are your concerns or questions for the visit today: Concern about the 2 hospital stay Was there a cardiac hospitalization/ED visit in the past year: Yes: When and where: 04/27/2025 DVT, HTN; 04/09/2025 Chronic diastolic HF HF Nursing Assessment: Chest Pain: no Skipping or irregular heartbeats: no Shortness of breath at rest: no Shortness of breath with activity: yes Cough: yes Waking up in the middle of the night gasping for air: no Lightheadedness or dizziness: yes, when get up and other times Feeling like you are going to pass out: no Actually passing out: no Poor energy level: yes Unintentional weight gain: no Unintentional weight loss: yes, loss 5 lbs over month or 2 Swelling in your legs,feet, abdomen: no Filling up quickly when you eat: no HISTORY OF PRESENT ILLNESS: 89 yo M with pmh of hypertension, CKD stage 3b, hypothyroidism, and HFpEF who presents for further evaluation of her HFpEF. Ms. Evans presents for evaluation of her HFpEF. She has increased dyspnea on exertion. She presents today to follow up post her most recent hospitalizations. She was hospitalized in 04/09/25 at [facility] for chest pain. Heart cath at the hospital did not show any significant stenosis of the coronary vessels. There was mild disease noted in the left anterior descending artery, nonobstructive disease noted in the circumflex artery, and a dominant right coronary artery with no significant stenosis. She was found to have LE DVT and was started on eliquis. After being discharged, she felt lightheaded and dizzy at home. Her chest pain resolved after discharge. On her PCP follow up appointment, her oxygen saturation was 88% and there was concern for a PE. She was advised to go to the ED. She had another hospitalization in 05/11 at [facility] and she had no PE on the CT chest. She had BRIGHT (Cr was 1.78 with baseline 1.1-1.3) suspected to be secondary to the diuretic. At discharge, she was advised to continue dapagliflozin and stop indapamide. The patient has continued to take indapamide 2.5 mg and dapagliflozin 5 mg. She measures her BP at home and it is about 130/70s. She still complains of lightheadedness occasionally. She uses the pulse ox at home and her saturations have been 92-93%. PAST MEDICAL HISTORY Diagnosis Date Breast cancer (HCC) 09/[address] Wood right ER positive s/p surgery/radiation and AI Collagenous colitis 07/30/2017 On biopsy 2012. Diarrhea hx of colitis Diffuse cystic mastopathy Dyspareunia Essential hypertension H/O complete eye exam 03/13/2011 no retinopathy detected -both eyes - [facility] - return in 1 year - Dr. [...] DX W/COLLJ SPEC WHEN PFRMD 09/08/2013 Colonoscopy LEFT HEART CATH,PERCUTANEOUS 04/10/2025 Mild Disease [facility]. MASTECTOMY, PARTIAL Right 10/30/2011 Right NL PM/SLNs PAST SURGICAL HISTORY OF bilat vein stripping PAST SURGICAL HISTORY OF Left 1990 left breast Atypical hyperplasia PAST SURGICAL HISTORY OF excision skin cancer S FINGER JOINT IMPLANT [phone] Left 11/2020 Candace Marmolejo left thumb joint replacement TOTAL ABDOMINAL HYSTERECT W/WO RMVL TUBE OVARY early 1969's Hysterectomy, CAROL, due to fibroids. SOCIAL HISTORY Social History Tobacco Use Smoking status: Former Current packs/day: 0.00 Average packs/day: 1 pack/day for 12.0 years (12.0 ttl pk-yrs) Types: Cigarettes Start date: 01/19/1955 Quit date: 01/19/1967 Years since quittin.3 Passive exposure: Never Smokeless tobacco: Never Vaping Use Va (more content not included)... [facility] 05-07-2025 History of Present illness Narrative Images from the original note were not included. Heart, Vascular and Thoracic [facility] SECTION OF HEART FAILURE and CARDIAC TRANSPLANT MEDICINE OUTPATIENT VISIT DATE May 07, 2025 OUTPATIENT VISIT TYPE Established Patient PRIMARY CARE PHYSICIAN: Susannah Capellan [address] [place] [address] CHIEF COMPLAINT: shortness of breath, lightheadedness What are your concerns or questions for the visit today: Concern about the 2 hospital stay Was there a cardiac hospitalization/ED visit in the past year: Yes: When and where: 04/27/2025 DVT, HTN; 04/09/2025 Chronic diastolic HF HF Nursing Assessment: Chest Pain: no Skipping or irregular heartbeats: no Shortness of breath at rest: no Shortness of breath with activity: yes Cough: yes Waking up in the middle of the night gasping for air: no Lightheadedness or dizziness: yes, when get up and other times Feeling like you are going to pass out: no Actually passing out: no Poor energy level: yes Unintentional weight gain: no Unintentional weight loss: yes, loss 5 lbs over month or 2 Swelling in your legs,feet, abdomen: no Filling up quickly when you eat: no HISTORY OF PRESENT ILLNESS: 89 yo M with pmh of hypertension, CKD stage 3b, hypothyroidism, and HFpEF who presents for further evaluation of her HFpEF. Ms. Evans presents for evaluation of her HFpEF. She has increased dyspnea on exertion. She presents today to follow up post her most recent hospitalizations. She was hospitalized in 04/09/25 at [facility] for chest pain. Heart cath at the hospital did not show any significant stenosis of the coronary vessels. There was mild disease noted in the left anterior descending artery, nonobstructive disease noted in the circumflex artery, and a dominant right coronary artery with no significant stenosis. She was found to have LE DVT and was started on eliquis. After being discharged, she felt lightheaded and dizzy at home. Her chest pain resolved after discharge. On her PCP follow up appointment, her oxygen saturation was 88% and there was concern for a PE. She was advised to go to the ED. She had another hospitalization in 05/11 at [facility] and she had no PE on the CT chest. She had BRIGHT (Cr was 1.78 with baseline 1.1-1.3) suspected to be secondary to the diuretic. At discharge, she was advised to continue dapagliflozin and stop indapamide. The patient has continued to take indapamide 2.5 mg and dapagliflozin 5 mg. She measures her BP at home and it is about 130/70s. She still complains of lightheadedness occasionally. She uses the pulse ox at home and her saturations have been 92-93%. PAST MEDICAL HISTORY Diagnosis Date Breast cancer (HCC) 09/[address] Nina moraes ER positive s/p surgery/radiation and AI Collagenous colitis 07/30/2017 On biopsy 2012. Diarrhea hx of colitis Diffuse cystic mastopathy Dyspareunia Essential hypertension H/O complete eye exam 03/13/2011 no retinopathy detected -both eyes - [facility] - return in 1 year - Dr. [...] DX W/COLLJ SPEC WHEN PFRMD 09/08/2013 Colonoscopy LEFT HEART CATH,PERCUTANEOUS 04/10/2025 Mild Disease [facility]. MASTECTOMY, PARTIAL Right 10/30/2011 Right NL PM/SLNs [...] date: 01/19/1955 Quit date: 01/19/1967 Years since quittin.3 Passive exposure: Never Smokeless tobacco: Never Vaping [...] Verapamil Hcl GI Upset constipation CURRENT MEDICATIONS: ELIQUIS 2.5 mg tab(s) Take 2.5 mg by mouth two times a day. NIFEdipine ER (PROCARDIA XL) 60 mg 24 hr tablet Take 60 mg by mouth once daily. ondansetron (ZOFRAN) 4 mg tablet Take by mouth every 8 hours as needed for nausea/vomiting. dapagliflozin propanediol (FARXIGA) 5 mg tablet Take 1 tablet by mouth daily with breakfast. labetalol (TRANDATE) 200 mg tablet Take 1 [...] leave in for 3-5 minutes before rinsing. MULTIVITAMIN ORAL Take [...] satiety MUSCULOSKELETAL: Negative for: Arthralgias, Myalgias NEUROLOGICAL: Positive for: Dizziness Negative for: Headaches SKIN: Negative for: Rash EYES: Negative for: [...] sorted in reverse-chronological order PHYSICAL EXAMINATION: BP 138/71 (BP Site: Left Arm) Pulse 72 Ht 167.6 cm (5' 6") Wt 56.8 kg (125 lb 3.2 oz) SpO2 96% BMI 20.21 kg/m General: Well appearing, in no acute [...] review. Last ECHO Result Conclusion ECHO Collected: 04/03/2025 10:26 AM (Final result) Impression: CONCLUSIONS: - Technically difficult exam due to [...] * * * Final * * * Last EKG Result Conclusion ECG COMPLETE Collected: 07/03/2024 10:54 AM (Final result) Impression: NORMAL SINUS RHYTHM POSSIBLE LEFT ATRIAL ENLARGEMENT BORDERLINE ECG Confirmed by JOSÉ MIGUEL PEREZ MD ([id number]) on 07/03/2024 3:08:37 PM IMPRESSION: NYHA Functional Class: II Stage: C heart failure Target weight: 125-130 lbs Heart Failure specific medications (list current, note updates or changes, note prior intolerance): BB: * ACEI/ARB/ARNI: * MRA: * SGLT2: Dapagliflozin 5 mg Diuretic: Indapamide Digoxin: * Vasodilators: * Anti-arrhythmics: * Ivabradine: * Other anti-HTN: Clonidine 0.1 mg, labetalol 200 mg PLAN AND RECOMMENDATIONS: 89 yo M with pmh of hypertension, CKD stage 3b, hypothyroidism, and HFpEF who presents for further evaluation of her HFpEF. Ms. Evans presents for evaluation of her HFpEF. She has increased dyspnea on exertion. 1. Chronic HFpEF (chronic diastolic heart failure) - LVEF 60%, normal wall thickness, normal LA size (27 ml/m2) 2. Hypertension - well controlled 3. Hypothyroidism 4. CKD stage 3b (cr 1.36 with eGFR of 36) continue farxiga 5 mg Advised to stop indapamide because of the lightheadedness. Recommended that she take lasix as needed based on her weights. She will establish with a digital forensics examiner to investigate her dyspnea on exertion. She has spirometry scheduled. Follow up in 3 months. Will discuss antihypertensives at that time and if any changes are needed in her current regimen (labetalol, clonidine, indapamide) I personally interviewed, confirmed and edited the above information as obtained by others I personally spent 30 minutes in total time involved in the management and care of this patient. We discussed natural history of disease, current treatment options, and future potential treatment options. We discussed diet, exercise, other non-medical management as above. Paul Bautista MD [facility] Section Of Heart Failure and Cardiac Transplant Medicine Heart and Vascular [place] [facility] Desk J3-[address] [place] [address] documented in this encounter [facility] 05-02-2025 Telephone encounter Note Request successfully faxed to [facility] at [phone]. (Verbal order by patient.) [facility] 05-02-2025 Miscellaneous Notes Request successfully faxed to [facility] at [phone]. (Verbal order by patient.) Pt calling in request needs faxed to medical records at [phone]. Could we please contact [facility] directly for the echo and the CT scan of the chest? Pt to contact [facility] to have ct results and echo results released and sent to dr. Capellan's office. Transferred to scheduling for appt for kidney ultrasound, pulmonary testing and digital forensics examiner follow up. Please fax orders for overnight pulse oximetry testing. Informed pt that someone may be contacting her to schedule. [facility] [place] also does the studies if [facility] does not service that area. Thanks for your help. Please obtain results of Ct of the chest and echo from [facility]. Please assist patient in scheduling Pulmonary function test's with DLCO and follow up appointment with Pulmonology. Please assist in scheduling nighttime pulse ox testing. Usually this can be done through a home care agency [facility]. Rx in my outbox. [phone] Please assist in scheduling kidney ultrasound. documented in this encounter [facility] 05-02-2025 Telephone encounter Note Pt calling in request needs faxed to medical records at [phone]. [facility] 05-02-2025 Telephone encounter Note Could we please contact [facility] directly for the echo and the CT scan of the chest? [facility] 05-02-2025 Telephone encounter Note Pt to contact [facility] to have ct results and echo results released and sent to dr. Capellan's office. Transferred to scheduling for appt for kidney ultrasound, pulmonary testing and digital forensics examiner follow up. Please fax orders for overnight pulse oximetry testing. Informed pt that someone may be contacting her to schedule. [facility] [place] also does the studies if [facility] does not service that area. Thanks for your help. [facility] 05-01-2025 Telephone encounter Note Please obtain results of Ct of the chest and echo from [facility]. Please assist patient in scheduling Pulmonary function test's with DLCO and follow up appointment with Pulmonology. Please assist in scheduling nighttime pulse ox testing. Usually this can be done through a home care agency [facility]. Rx in my outbox. [phone] Please assist in scheduling kidney ultrasound. [facility] 04-29-2025 Discharge summary Note Date/Time April 29, 2025 8:19am [facility] Medical Records Department [address] [place] [id number] Instructions for Home/Discharge Instructions 04/28/25 1558 MR#: [id number] Acct: [id number] Name: ZENAIDA EVANS Rep #:[id number] : 1935 89 From: Ariella Breaux MD PCP: Dr. Susannah Capellan MD Status:AD M IN Discharge Instructions DC O2, CPAP, BIPAP needs Home O2 Discharge instructions: No Dressing / Incision Discharge Activity: - (Recommend continued routine activity. Please assure slow transitions from laying->seated->standing position changes. Please avoid prolonged heat exposure.) May resume sexual activity in: 10-14 days Weight Bearing Status: Weight bearing as tolerated Dressing / Incision Call your doctor if you observe: Fever of 101 or Higher, Shortness of breath, Dizziness, Swelling in the ankles, Chest pain, Increased palpitations (irregularheartbeat), Calf discomfort and Uncontrolled pain Follow Up Care Test Results: Test results from this visit will be discussed in further detail at your follow-up appointment, if applicable. Discharge Plan Admission Admit Date/Time: 04/27/25 20:05 Primary Reason for Your Visit: Acute Kidney Injury, Orthostasis Attending Provider: Ariella Breaux Primary Care Provider: Susannah Capellan Consulting Providers: Adilson Melchor; Emmanuelle Lorenzana Instructions Additional Instructions / Restrictions: ADDITIONAL FOLLOW-UP/EVALUATION: --ED evaluation with chest x-ray with no acute cardiopulmonary findings, chest CTA with no pulmonary emboli with a left kidney indeterminate lesion, chronic and axillary findings unchanged, cardiac enzymes initially 89 with repeat 84 notconcerning given recent cardiac catheterization with no acute coronary disease noted, BNP 614. --Initial ED renal function included BUN/creatinine 44/1.78, GFR 27 with baseline creatinine 1.1-1.3 but has vacillated from review of previous labs. Repeat renal function trending improved with 04/28/25 BUN/creatinine 34/1.17, GFR45--> and most recently on day of discharge 04/29/25 BUN/creatinine 27/1.12, CFR 47. Please have repeat basic metabolic panel outpatient at follow-up with your primary care physician. --CTA Lung w/ incidentally noted left kidney indeterminate lesion. Please have follow-up outpatient nonemergent evaluation to determine if cystic in nature. --Given presentation with notable orthostatic vital signs (significant changes in heart rate/blood pressure with changes from laying, sitting to standing) withacute kidney injury suspected secondary to over diuresis your medications including indapamide and dapagliflozin were temporarily held. You were started on Procardia to assist with blood pressure control in the interim. The technical support agent at discharge has recommended continuation of your dapagliflozin butdiscontinuation of indapamide as well as change of your Eliquis to 2.5 mg p.o. twice daily in accordance with altered dosing based on age and creatinine function. We have also prescribed Procardia and recommend given your elevated blood pressure above parameters that you continue this medication until reevaluation by your technical support agent with further changes per their discretion. --The medication hold of the indapamide, change of Eliquis to renally dosing of 2.5 mg twice daily and initiated medication Procardia may be reassessed outpatient with follow-up with your technical support agent and further changes made depending on your repeat vital sign assessments at that time as well as repeat basic metabolic function assessment per your primary care physician. -- Please also have repeat orthostatic vital sign assessment with your primary care and technical support agent at follow-up. Discharge Orders/Prescriptions Prescriptions: New Eliquis 2.5 mg tablet 2.5 mg PO BID 30 Days Qty: 60 0RF nifedipine 60 mg Tablet Extended Release 24hr 60 mg PO DAILY 30 Days Qty: 30 0RF Continued levothyroxine 88 MCG tablet 88 mcg PO DAILY labetalol 200 MG tablet 100 mg PO BID melatonin 5 MG capsule 5 mg PO QHS clonidine 0.1 mg/24 hr patch weekly 1 patch transdermal QWEEK Patient Comments: Apply 1 patch topically one time a week as directed minoxidil 2.5 mg tablet 2.5 mg PO DAILY nitroglycerin 0.4 mg tablet, sublingual 0.4 mg sublingual PRN dapagliflozin propanediol [Farxiga] 5 mg tablet 5 mg PO DAILY ketoconazole 2 % shampoo 1 applic topical .2-3 times weekly biotin 5 mg capsule 5 mg PO DAILY Discontinued Eliquis 5 mg tablet 5 mg PO BID 30 Days Qty: 60 2RF indapamide 2.5 mg tablet 2.5 mg PO DAILY Referrals / Follow Up: Paul Bautista [Other] (Please follow-up immediately within the next 3-5 days with your [place] [employer]. You may see the [employer] PATCHER/PA in their office as well.) Susannah Capellan MD [Primary Care Provider] - (Please follow-up with your primary care physician for evaluation following inpatient admission. Please also have a repeat basic metabolic panel and orthostatic vital sign assessment.) Disposition Disposition (needs filled in before D/C Order can be placed): Home, Self Care 04/29/25 0819<Electronically signed by Ariella Breaux MD>Ariella Breaux MD CC: Dr. Emmanuelle Lorenzana MD; Dr. Adilson Melchor DO; Dr. Susannah Capellan MD ~ Signed [facility] Work Phone: [phone]) 533-492307-13-2025 Discharge summary [facility] Medical Records Department [address] [place] [address] Instructions for Home/Discharge Instructions 04/28/25 1558 MR#: [id number] Acct: [id number] Name: ZENAIDA EVANS Rep #:[id number] : 1935 89 From: Ariella Breaux MD PCP: Dr. Susannah Capellan MD Status:AD M IN Discharge Instructions DC O2, CPAP, BIPAP needs Home O2 Discharge instructions: No Dressing / Incision Discharge Activity: - (Recommend continued routine activity. Please assure slow transitions from laying->seated->standing position changes. Please avoid prolonged heat exposure.) May resume sexual activity in: 10-14 days Weight Bearing Status: Weight bearing as tolerated Dressing / Incision Call your doctor if you observe: Fever of 101 or Higher, Shortness of breath, Dizziness, Swelling in the ankles, Chest pain, Increased palpitations (irregularheartbeat), Calf discomfort and Uncontrolled pain Follow Up Care Test Results: Test results from this visit will be discussed in further detail at your follow- up appointment, if applicable. Discharge Plan Admission Admit Date/Time: 04/27/25 20:05 Primary Reason for Your Visit: Acute Kidney Injury, Orthostasis Attending Provider: Ariella Breaux Primary Care Provider: Susannah Capellan Consulting Providers: Adilson Melchor; Emmanuelle Lorenzana Instructions Additional Instructions / Restrictions: ADDITIONAL FOLLOW-UP/EVALUATION: --ED evaluation with chest x-ray with no acute cardiopulmonary findings, chest CTA with no pulmonary emboli with a left kidney indeterminate lesion, chronic and axillary findings unchanged, cardiac enzymes initially 89 with repeat 84 notconcerning given recent cardiac catheterization with no acute coronary disease noted, BNP 614. --Initial ED renal function included BUN/creatinine 44/1.78, GFR 27 with baseline creatinine 1.1-1.3 but has vacillated from review of previous labs. Repeat renal function trending improved with 04/28/25 BUN/creatinine 34/1.17, GFR45--> and most recently on day of discharge 04/29/25 BUN/giumfkyzzp69/1.12, CFR 47. Please have repeat basic metabolic panel outpatient at follow-up with your primarycare physician. --CTA Lung w/ incidentally noted left kidney indeterminate lesion. Please have follow-up outpatientnonemergent evaluation to determine if cystic in nature. --Given presentation with notable orthostatic vital signs (significant changes in heart rate/blood pressure with changes from laying, sitting to standing) withacute kidney injury suspected secondary to over diuresis your medications including indapamide and dapagliflozin were temporarily held. You were started on Procardia to assist with blood pressure control in the interim. The technical support agent at discharge has recommended continuation of your dapagliflozin butdiscontinuation of indapamide as well as change of your Eliquis to 2.5 mg p.o. twice daily in accordance with altered dosing based on age and creatinine function. We have also prescribed Procardia and recommend given your elevated bloodpressure above parameters that you continue this medication until reevaluation by your cardiologistwith further changes per their discretion. --The medication hold of the indapamide, change of Eliquis to renally dosing of 2.5 mg twice daily and initiated medication Procardia may be reassessed outpatient with follow-up with your technical support agent and further changes made depending on your repeat vital sign assessments at that time as well as repeat basic metabolic function assessment per your primary care physician. -- Please also have repeat orthostatic vital sign assessment with your primary care and technical support agent at follow-up. Discharge Orders/Prescriptions Prescriptions: New Eliquis 2.5 mg tablet 2.5 mg PO BID 30 Days Qty: 60 0RF nifedipine 60 mg Tablet Extended Release 24hr 60 mg PO DAILY 30 Days Qty: 30 0RF Continued levothyroxine 88 MCG tablet 88 mcg PO DAILY labetalol 200 MG tablet 100 mg PO BID melatonin 5 MG capsule 5 mg PO QHS clonidine 0.1 mg/24 hr patch weekly 1 patch transdermal QWEEK Patient Comments: Apply 1 patch topically one time a week as directed minoxidil 2.5 mg tablet 2.5 mg PO DAILY nitroglycerin 0.4 mg tablet, sublingual 0.4 mg sublingual PRN dapagliflozin propanediol [Farxiga] 5 mg tablet 5 mg PO DAILY ketoconazole 2 % shampoo 1 applic topical .2-3 times weekly biotin 5 mg capsule 5 mg PO DAILY Discontinued Eliquis 5 mg tablet 5 mg PO BID 30 Days Qty: 60 2RF indapamide 2.5 mg tablet 2.5 mg PO DAILY Referrals / Follow Up: Paul Bautista [Other] (Please follow-up immediately within the next 3-5 days with your [place] [employer]. You may see the [employer]HALT PATCHER/PA in their office as well.) Susannah Capellan MD [Primary Care Provider] - (Please follow-up with your primary care physician for evaluation following inpatient admission. Please also have a repeat basic metabolic panel and orthostatic vital sign assessment.) Disposition Disposition (needs filled in before D/C Order can be placed): Home, Self Care 04/29/25818Ariella Breaux MD CC: Dr. Emmanuelle Lorenzana MD; Dr. Adilson Melchor DO; Dr. Susannah Capellan MD ~ Signed [facility]07-13-2025 [facility] Medical Records Department [address] [place] [address] Discharge Summary 04/29/25 08 MR#: [id number] Acct: [id number] Name: ZENAIDA EVANS Rep #: [id number] : 1935 89 From: Ariella Breaux MD PCP: Dr. Susannah Capellan MD Status:DIS IN Location: [facility] [id number] Providers Date of Admission: 04/27/25 Date of Discharge: 04/29/25 Primary Care Physician: Dr. Susannah Capellan MD Consultations 04/28/25 11:12 Consult: Cardiology Routine Consulting Provider: Emmanuelle Lorenzana Reason for Consult: Orthostasis, BRIGHT related likely to diuretic meds EMERGENT Consult: No MD Notified: Yes Date Notified: 04/28/25 Time Notified: 11:13 Method of Notification: Text Reason For Visit: BRIGHT W/ORTHOSTATIC HOTN, HYPOXIA Diagnosis Discharge Diagnosis (1) BRIGHT (acute kidney injury): Status: Acute Code(s): N17.9 - Acute kidney failure, unspecified (2) Orthostatic hypotension: Status: Acute Code(s): I95.1 - Orthostatic hypotension (3) Hypoxia: Status: Acute Code(s): R09.02 - Hypoxemia Plan: DISCHARGE DIAGNOSES: #1. Acute kidney injury on CKD stage IIIb secondary to suspected dehydration/hypovolemia as well as nephrotoxic medication associated with orthostatic hypotension #2. Exertional hypoxia of unclear etiology, RESOLVED #3. Recent left lower extremity DVT #4. HFpEF, chronic #5. Hypertension #6. Hyperlipidemia #7. Hypothyroidism #8. History of breast cancer, Unclear type, unclear exact interventions, considered in remission #9. CODE STATUS: Full Code. Medications at Discharge Home Medications levothyroxine 88 mcg tablet 88 mcg PO DAILY thyroid 01/18/18 labetalol 200 mg tablet 100 mg PO BID Blood pressure 10/16/19 melatonin 5 mg capsule 5 mg PO QHS Sleep 10/16/19 clonidine 0.1 mg/24 hr weekly transdermal patch 1 patch transdermal QWEEK Hypertension 11/06/23 minoxidil 2.5 mg tablet 2.5 mg PO DAILY Hair 04/09/25 nitroglycerin 0.4 mg sublingual tablet 0.4 mg sublingual PRN Chest pain 04/09/25 biotin 5 mg capsule 5 mg PO DAILY Supplement 04/10/25 dapagliflozin propanediol 5 mg tablet (Farxiga) 5 mg PO DAILY Heart Failure 04/10/25 ketoconazole 2 % shampoo 1 applic topical .2-3 times weekly Rash 04/10/25 apixaban 2.5 mg tablet (Eliquis) 2.5 mg PO BID 30 days #60 tabs 04/28/25 nifedipine 60 mg tablet,extended release 24 hr 60 mg PO DAILY 30 days #30 tabs 04/28/25 Hospital Course Operations None Procedures EKG Summary of Care Provided Minutes Spent on Discharge: 35 Hospital Course: The patient is an 89 y/o F w/ PMHx: HFpEF, HTN, HLD, Hx recent LLE DVT on eliquis, Hypothyroidism, CKD stage IIIb per record, Hx Breast CA unclear type in remission who presented to the [facility] ED on 04/27/25 secondary to significant dizziness and lightheadedness. Admitted to PCU, maintained on monitor, very judiciously hydrated, admission BUN/creatinine 44/1.78, baseline creatinine primarily 1.1-1.2, notable orthostatics in the ED with standing with symptomatic lightheadedness at that time, nephrotoxic medication held including indapamide and dapagliflozin. 04/28/25 repeat BUN/creatinine 30/1.17, GFR 45, notably improved. 04/28/25 AM repeat orthostatics however significant with again laying systolic 180, seated 156 and standing 130 however at this time patient was not symptomatic. Repeat orthostatics 04/28/2025 afternoon improved and repeat 04/29/2025 orthostatics further improved. Patient walking the halls without any issue or near syncopal type sensation. Per discussion with cardiology upon discharge we will continue to hold indapamide, resumption of empagliflozin with follow-up with cardiology recommended. Upon ED arrival patient with O2 saturation 95% on room air with good activity desaturated down to 85% requiring 2 L nasal cannula, CTPA with no obvious acute findings, recent echocardiogram 04/10/25 with mild pulmonary hypertension otherwise no overt concerning findings. Recent cardiac catheterization same day with noted nonobstructive coronary arteries with recommendation for ongoing medical management. 03/29/2025 ambulatory oxygenation trial with no need for supplementation fortunately. Repeat evaluation 04/29/2025 walking the halls with no hypoxia. Given clinical improvement, resolved BRIGHT with 04/29/25 BUN/1 and 27/1.12, GFR 47 we will plan discharge to home with early follow-up as noted with cardiology and PCP with adjustments/hold as well as altered medication dosing as noted. Weight / BMI Weight Weight: 124 lb 15.998 oz Body Mass Index (BMI) 20.1 ABG / Lab / Microbiology Data 04/29/25 05:50 04/29/25 05:50 Laboratory: Laboratory Results - last 24 hr 04/29/25 05:50: WBC 4.5, RBC 3.45 L, Hgb 10.7 L, Hct 31.4 L, MCV 91.0, MCH 31.0, MCHC 34.1, RDW Std Deviation 41.7, RDW Coeff of Gabriella 12.6, Plt Count 218, MPV 9.8, Immature Gran % (Auto) 0.200, Neut % (more content not included)...[facility]07-12-2025 Consult note Author Emmanuelle Lorenzana [facility] Note Date/Time April 28, 2025 2:10 pm [facility] Medical Records Department [address] [place] [address] Consultation - Cardiology 04/28/25 1358 MR#: [id number] Acct: [id number] Name: ZENAIDA EVANS Rep #:[id number] : 1935 89 From: Emmanuelle Lorenzana MD PCP: Dr. Susannah Capellan MD Status:AD M IN Location: [place] [address] Assessment & Plan Assessment/Plan (1) (HFpEF) heart failure with preserved ejection fraction: PLAN: Compensated HFpEF. Discontinue indapamide. Continue with dapagliflozin 5 mg daily. (2) BRIGHT (acute kidney injury): PLAN: Prerenal due to hypovolemia (3) HTN (hypertension), benign: PLAN: Continue with labetalol 100 mg twice daily Continue with clonidine patch (4) History of deep vein thrombosis (DVT) of lower extremity: PLAN: Reduce apixaban to 2.5 mg twice daily given age and low weight. HPI Consult Data Date of Consult: 04/28/25 HPI Narrative HPI Narrative: ZENAIDA EVANS, is a 89 F with a HFpEF 60%, HTN, HLD, Hx recent LLE DVT on eliquis, Hypothyroidism, CKD stage IIIb, Hx Breast CA unclear type in remission who presents to the [facility] ED on 04/27/25 secondary to significant dizziness and lightheadedness. She was admitted due to BRIGHT secondary to prerenal and orthostatic hypotension [facility] Medical History Chronic diastolic CHF (congestive heart failure) Chronic kidney disease HTN (hypertension) CHF (congestive heart failure) Home Medications ?Medication ?Instructions ?Recorded ?Last Taken ?Type levothyroxine 88 mcg tablet 88 mcg PO DAILY thyroid 04/09/25 History labetalol 200 mg tablet 100 mg PO BID Blood pressure 10/16/19 04/09/25 History melatonin 5 mg capsule 5 mg PO QHS Sleep 10/16/19 0 04/09/25 History clonidine 0.1 mg/24 hr weekly 1 patch transdermal QWEE K 11/06/23 04/09/25 History transdermal patch Hypertension minoxidil 2.5 mg tablet 2.5 mg PO DAILY Hair 5 Unknown History nitroglycerin 0.4 mg sublingual 0.4 mg sublingual PRN Chest pain 04/09/25 Unknown History tablet biotin 5 mg capsule 5 mg PO DAILY Supplement Unknown History dapagliflozin propanediol 5 mg 5 mg PO DAILY Heart Rich lure 04/10/25 Unknown History tablet (Farxiga) ketoconazole 2 % shampoo 1 applic topical .2-3 times weekly 04/10/25 Unknown History Rash apixaban 5 mg tablet (Eliquis) 5 mg PO BID 30 days #60 tabs 04/11/25 Unknown Rx indapamide 2.5 mg tablet 2.5 mg PO DAILY 04/27/25 Unk nown History Allergy/AdvReac Type Severity Reaction Status Date / Time iron Allergy Unknown Verified 04/27/25 13:16 pentazocine (From Talwin) Allergy Other Verified 04/27/25 13:16 scopolamine Allergy Other Verified 04/27/25 13:16 amlodipine AdvReac Unknown Significant Verified 04/27/25 13:16 swelling ARB-Angiotensin Receptor AdvReac Unknown BRIGHT/ Verified 04/27/25 13:16 Antagonist Hyperkalemia atorvastatin (From Lipitor) AdvReac Unknown Myalgia Verified 04/27/25 13:16 empagliflozin (From AdvReac Unknown Diarrhea Verified 04/27/25 13:16 Jardiance) hydralazine AdvReac Unknown Intolerance/ Verified 04/27/25 13:16 Nausea hydrochlorothiazide (hctz) AdvReac Unknown Containdication/ Verified 04/27/25 13:16 Hyponatremia losartan AdvReac Unknown BRIGHT with Verified 04/27/25 13:16 elevated potassium and creatinine spironolactone AdvReac Unknown Caused BP Verified 04/27/25 13:16 to go up verapamil AdvReac Unknown GI Upset Verified 04/27/25 13:16 Family History no significant family his Social History Smoking Status: Former smoker ROS Constitutional Constitutional: Reports systems reviewed and no addt'l complaints, except as documented Eyes Eyes: Reports systems reviewed and no addt'l complaints, except as documented ENT HEENT: Reports systems reviewed and no addt'l complaints, except as documented Cardiovascular Cardiovascular: Reports systems reviewed and no addt'l complaints, except as documented Respiratory/Chest Respiratory/Chest: Reports systems reviewed and no addt'l complaints, except as documented Gastrointestinal Gastrointestinal: Reports systems reviewed and no addt'l complaints, except as documented Genitourinary Genitourinary: Reports systems reviewed and no addt'l complaints, except as documented Musculoskeletal Musculoskeletal: Reports systems reviewed and no addt'l complaints, except as documented Integumentary Integumentary: Reports systems reviewed and no addt'l complaints, except as documented Neurologic Neurologic: Reports systems reviewed and no addt'l complaints, except as documented Psychiatric Psychiatric: Reports systems reviewed and no addt'l complaints, except as documented Endocrine Endocrinology: Reports systems reviewed and no addt'l complaints, except as documented Hematologic/Lymphatic Hematologic/Lymphatic: Reports systems reviewed and no addt'l complaints, exceptas documented Allergic/Immunologic Allergic/Immunologic: Reports systems reviewed and no addt'l complaints, except as documented Physical Exam Const alert HEENT normocephalic Eyes PERRL Neck full ROM Lymph Lymphatic: no lymphadenopathy noted Chest inspection of chest normal Cardio regular rate Jugular Venous Distention: JVD to the level of the earlobe GI normal to inspection, nondistended, normoactive bowel sounds no CVA tenderness Risk Stratification Risk Stratification Applicable: No Objective Data Vital Signs: Vital Signs Temp Pulse Resp BP Pulse Ox O2 Del Method 98.4 F 71 15 182/82 H 92 Room Air 04/28/25 09:46 04/28/25 09:05 04/28/25 05:50 04/28/25 09:05 04/28/25 05:50 04/28/25 08:33 Oxygen Delivery Method Room Air Weight: 124 lb 15.998 oz Body Mass Index (BMI) 20.1 Intake & Output: Intake and Output for Last 24 Hours 04/26/25 04/27/25 04/28/25 23:59 23:59 23:59 Intake Total 1200 / 1200 990 / 990 Balance 1200 / 1200 990 / 990 Lab / Micro Data 04/28/25 05:30 04/28/25 05:30 Labs: Laboratory Results - last 24 hr 04/27/25 15:29: WBC 4.5, RBC 3.65 L, Hgb 11.4 L, Hct 34.4 L, MCV 94.2, MCH 31.2,MCHC 33.1, RDW Std Deviation 43.3, RDW Coeff of Gabriella 12.5, Plt Count 245, MPV 9.6, Immature Gran % (Auto) 0.200, Neut % (Auto) 49.1, Lymph % (Auto) 32.8, White% (Auto) 12.7 H, Eos % (Auto) 4.5, Baso % (Auto) 0.7, Absolute Neuts (auto) 2.2,Absolute Lymphs (auto) 1.47, Nucleated RBC % 0, Sodium 140, Potassium 4.3, Chloride 100, Carbon Dioxide 28.2, Anion Gap 12, BUN 44 H, Creatinine 1.78 H, Estim Creat Clear Calc 20.09 L, Est GFR (MDRD) Non-Af 27 L, BUN/Creatinine Ratio 24.7 H, Glucose 110 H, Calcium 10.1, Troponin T High Sens 89 H* D, NT pro BNP II614 04/27/25 17:34: Troponin T Hi Sens 2 Hr 84 H* 04/28/25 05:30: WBC 4.3 L, RBC 3.23 L, Hgb 10.2 L, Hct 30.1 L, MCV 93.2, MCH 31.6, MCHC 33.9, RDW Std Deviation 43.0, RDW Coeff of Gabriella 12.6, Plt Count 213, MPV 9.5, Sodium 140, Potassium 4.3, Chloride 104, Carbon Dioxide 27.4, Anion Gap8, BUN 34 H, Creatinine 1.17, Estim Creat Clear Calc 29.75 L, Est GFR (MDRD) Non-Af 45 L, BUN/Creatinine Ratio 29.1 H, Glucose 90, Calcium 9.2 Cardiology Labs/Tests 04/27/25 15:29: WBC 4.5, RBC 3.65 L, Hgb 11.4 L, Hct 34.4 L, MCV 94.2, MCH 31.2,MCHC 33.1, Plt Count 245, MPV 9.6, Immature Gran % (Auto) 0.200, Neut % (Auto) 49.1, Lymph % (Auto) 32.8, White % (Auto) 12.7 H, Eos % (Auto) 4.5, Baso % (Auto)0.7, Absolute Neuts (auto) 2.2, Nucleated RBC % 0, Sodium 140, Potassium 4.3, Chloride 100, Carbon Dioxide 28.2, Anion Gap 12, BUN 44 H, Creatinine 1.78 H, Est GFR (MDRD) Non-Af 27 L, BUN/Creatinine Ratio 24.7 H, Glucose 110 H, Calcium 10.1 04/28/25 05:30: WBC 4.3 L, RBC 3.23 L, Hgb 10.2 L, Hct 30.1 L, MCV 93.2, MCH 31.6, MCHC 33.9, Plt Count 213, MPV 9.5, Sodium 140, Potassium 4.3, Chloride 104, Carbon Dioxide 27.4, Anion Gap 8, BUN 34 H, Creatinine 1.17, Est GFR (MDRD)Non-Af 45 L, BUN/Creatinine Ratio 29.1 H, Glucose 90, Calcium 9.2 Rhythm: EKG: ECHO: Stress Test: Cardiac Cath: PCI: CT Surgery: Holter monitor: EPS: PPM: CXR: Chest CT Scan: Radiography Diagnostic Testing: Radiology Impression Chest X-Ray 04/27/25 15:16 IMPRESSION: No evidence of acute cardiopulmonary disease. Reading Location: [id number] Chest CTA 04/27/25 17:29 IMPRESSION: No pulmonary embolism. Left kidney indeterminate lesion. Further characterization with nonemergent ultrasound is recommended to determine if it is cystic. Chronic and ancillary findings as above. Reading Location: [id number] 04/28/25 1410 <Electronically signed by Emmanuelle Lorenzana MD> Cosigner Signature (if applicable): CC: Dr. Susannah Capellan MD~ Signed [facility] Work Phone: 1(296) 564-684007-12-2025 Consult note [facility] Medical Records Department [address] [place] [address] Consultation - Cardiology 04/28/25 1358 MR#: [id number] Acct: [id number] Name: ZENAIDA EVANS Rep #:[id number] : 1935 89 From: Emmanuelle Lorenzana MD PCP: Dr. Susannah Capellan MD Status:AD M IN Location: [place] [address] Assessment & Plan Assessment/Plan (1) (HFpEF) heart failure with preserved ejection fraction: PLAN: Compensated HFpEF. Discontinue indapamide. Continue with dapagliflozin 5 mg daily. (2) BRIGHT (acute kidney injury): PLAN: Prerenal due to hypovolemia (3) HTN (hypertension), benign: PLAN: Continue with labetalol 100 mg twice daily Continue with clonidine patch (4) History of deep vein thrombosis (DVT) of lower extremity: PLAN: Reduce apixaban to 2.5 mg twice daily given age and low weight. HPI Consult Data Date of Consult: 04/28/25 HPI Narrative HPI Narrative: ZENAIDA EVANS, is a 89 F with a HFpEF 60%, HTN, HLD, Hx recent LLE DVT on eliquis, Hypothyroidism, CKD stage IIIb, Hx Breast CA unclear type in remission who presents to the [facility] ED on 04/27/25 secondary to significant dizziness and lightheadedness. She was admitted due to BRIGHT secondary to prerenal and orthostatic hypotension [facility] Medical History Chronic diastolic CHF (congestive heart failure) Chronic kidney disease HTN (hypertension) CHF (congestive heart failure) Home Medications ?Medication ?Instructions ?Recorded ?Last Taken ?Type levothyroxine 88 mcg tablet 88 mcg PO DAILY thyroid 04/09/25 History labetalol 200 mg tablet 100 mg PO BID Blood pressure 10/16/19 04/09/25 History melatonin 5 mg capsule 5 mg PO QHS Sleep 10/16/19 0 04/09/25 History clonidine 0.1 mg/24 hr weekly 1 patch transdermal QWEE K 11/06/23 04/09/25 History transdermal patch Hypertension minoxidil 2.5 mg tablet 2.5 mg PO DAILY Hair 5 Unknown History nitroglycerin 0.4 mg sublingual 0.4 mg sublingual PRN Chest pain 04/09/25 Unknown History tablet biotin 5 mg capsule 5 mg PO DAILY Supplement Unknown History dapagliflozin propanediol 5 mg 5 mg PO DAILY Heart Rich lure 04/10/25 Unknown History tablet (Farxiga) ketoconazole 2 % shampoo 1 applic topical .2-3 times weekly 04/10/25 Unknown History Rash apixaban 5 mg tablet (Eliquis) 5 mg PO BID 30 days #60 tabs 04/11/25 Unknown Rx indapamide 2.5 mg tablet 2.5 mg PO DAILY 04/27/25 Unk nown History Allergy/AdvReac Type Severity Reaction Status Date / Time iron Allergy Unknown Verified 04/27/25 13:16 pentazocine (From Talwin) Allergy Other Verified 04/27/25 13:16 scopolamine Allergy Other Verified 04/27/25 13:16 amlodipine AdvReac Unknown Significant Verified 04/27/25 13:16 swelling ARB-Angiotensin Receptor AdvReac Unknown BRIGHT/ Verified 04/27/25 13:16 Antagonist Hyperkalemia atorvastatin (From Lipitor) AdvReac Unknown Myalgia Verified 04/27/25 13:16 empagliflozin (From AdvReac Unknown Diarrhea Verified 04/27/25 13:16 Jardiance) hydralazine AdvReac Unknown Intolerance/ Verified 04/27/25 13:16 Nausea hydrochlorothiazide (hctz) AdvReac Unknown Containdication/ Verified 04/27/25 13:16 Hyponatremia losartan AdvReac Unknown BRIGHT with Verified 04/27/25 13:16 elevated potassium and creatinine spironolactone AdvReac Unknown Caused BP Verified 04/27/25 13:16 to go up verapamil AdvReac Unknown GI Upset Verified 04/27/25 13:16 Family History no significant family his Social History Smoking Status: Former smoker ROS Constitutional Constitutional: Reports systems reviewed and no addt'l complaints, except as documented Eyes Eyes: Reports systems reviewed and no addt'l complaints, except as documented ENT HEENT: Reports systems reviewed and no addt'l complaints, except as documented Cardiovascular Cardiovascular: Reports systems reviewed and no addt'l complaints, except as documented Respiratory/Chest Respiratory/Chest: Reports systems reviewed and no addt'l complaints, except as documented Gastrointestinal Gastrointestinal: Reports systems reviewed and no addt'l complaints, except as documented Genitourinary Genitourinary: Reports systems reviewed and no addt'l complaints, except as documented Musculoskeletal Musculoskeletal: Reports systems reviewed and no addt'l complaints, except as documented Integumentary Integumentary: Reports systems reviewed and no addt'l complaints, except as documented Neurologic Neurologic: Reports systems reviewed and no addt'l complaints, except as documented Psychiatric Psychiatric: Reports systems reviewed and no addt'l complaints, except as documented Endocrine Endocrinology: Reports systems reviewed and no addt'l complaints, except as documented Hematologic/Lymphatic Hematologic/Lymphatic: Reports systems reviewed and no addt'l complaints, exceptas documented Allergic/Immunologic Allergic/Immunologic: Reports systems reviewed and no addt'l complaints, except as documented Physical Exam Const alert HEENT normocephalic Eyes PERRL Neck full ROM Lymph Lymphatic: no lymphadenopathy noted Chest inspection of chest normal Cardio regular rate Jugular Venous Distention: JVD to the level of the earlobe GI normal to inspection, nondistended, normoactive bowel sounds no CVA tenderness Risk Stratification Risk Stratification Applicable: No Objective Data Vital Signs: Vital Signs Temp Pulse Resp BP Pulse Ox O2 Del Method 98.4 F 71 15 182/82 H 92 Room Air 04/28/25 09:46 04/28/25 09:05 04/28/25 05:50 04/28/25 09:05 04/28/25 05:50 04/28/25 08:33 Oxygen Delivery Method Room Air Weight: 124 lb 15.998 oz Body Mass Index (BMI) 20.1 Intake & Output: Intake and Output for Last 24 Hours 04/26/25 04/27/25 04/28/25 23:59 23:59 23:59 Intake Total 1200 / 1200 990 / 990 Balance 1200 / 1200 990 / 990 Lab / Micro Data 04/28/25 05:30 04/28/25 05:30 Labs: Laboratory Results - last 24 hr 04/27/25 15:29: WBC 4.5, RBC 3.65 L, Hgb 11.4 L, Hct 34.4 L, MCV 94.2, MCH 31.2,MCHC 33.1, RDW Std Deviation 43.3, RDW Coeff of Gabriella 12.5, Plt Count 245, MPV 9.6, Immature Gran % (Auto) 0.200, Neut % (Auto) 49.1, Lymph % (Auto) 32.8, White% (Auto) 12.7 H, Eos % (Auto) 4.5, Baso % (Auto) 0.7, AbsoluteNeuts (auto) 2.2,Absolute Lymphs (auto) 1.47, Nucleated RBC % 0, Sodium 140, Potassium 4.3, Chloride 100, Carbon Dioxide 28.2, Anion Gap 12, BUN 44 H, Creatinine 1.78 H, Estim Creat Clear Calc 20.09 L, Est GFR (MDRD) Non-Af 27 L, BUN/Creatinine Ratio 24.7 H, Glucose 110 H, Calcium 10.1, Troponin T High Sens 89 H* D, NT pro BNP II614 04/27/25 17:34: Troponin T Hi Sens 2 Hr 84 H* 04/28/25 05:30: WBC 4.3 L, RBC 3.23 L, Hgb 10.2 L, Hct 30.1 L, MCV 93.2, MCH 31.6, MCHC 33.9, RDW Std Deviation 43.0, RDW Coeff of Gabriella 12.6, Plt Count 213, MPV 9.5, Sodium 140, Potassium 4.3, Chloride 104, Carbon Dioxide 27.4, Anion Gap8, BUN 34 H, Creatinine 1.17, Estim Creat Clear Calc 29.75 L, Est GFR (MDRD) Non-Af 45 L, BUN/Creatinine Ratio 29.1 H, Glucose 90, Calcium 9.2 Cardiology Labs/Tests 04/27/25 15:29: WBC 4.5, RBC 3.65 L, Hgb 11.4 L, Hct 34.4 L, MCV 94.2, MCH 31.2,MCHC 33.1, Plt Count 245, MPV 9.6, Immature Gran % (Auto) 0.200, Neut % (Auto) 49.1, Lymph % (Auto) 32.8, White % (Auto)12.7 H, Eos % (Auto) 4.5, Baso % (Auto)0.7, Absolute Neuts (auto) 2.2, Nucleated RBC % 0, Sodium 140, Potassium 4.3, Chloride 100, Carbon Dioxide 28.2, Anion Gap 12, BUN 44 H, Creatinine 1.78 H, Est GFR (MDRD) Non-Af 27 L, BUN/Creatinine Ratio 24.7 H, Glucose 110 H, Calcium 10.1 04/28/25 05:30: WBC 4.3 L, RBC 3.23 L, Hgb 10.2 L, Hct 30.1 L, MCV 93.2, MCH 31.6, MCHC 33.9, Plt Count 213, MPV 9.5, Sodium 140, Potassium 4.3, Chloride 104, Carbon Dioxide 27.4, Anion Gap 8, BUN 34H, Creatinine 1.17, Est GFR (MDRD)Non-Af 45 L, BUN/Creatinine Ratio 29.1 H, Glucose 90, Calcium 9.2 Rhythm: EKG: ECHO: Stress Test: Cardiac Cath: PCI: CT Surgery: Holter monitor: EPS: PPM: CXR: Chest CT Scan: Radiography Diagnostic Testing: Radiology Impression Chest X-Ray 04/27/25 15:16 IMPRESSION: No evidence of acute cardiopulmonary disease. Reading Location: [facility] Chest CTA 04/27/25 17:29 IMPRESSION: No pulmonary embolism. Left kidney indeterminate lesion. Further characterization with nonemergent ultrasound is recommended to determine if it is cystic. Chronic and ancillary findings as above. Reading Location: [id number] 04/28/25 1410 Cosigner Signature (if applicable): CC: Dr. Susannah Capellan MD~ Signed [facility]07-12-2025 Progress note Author Ariella Breaux [facility] Note Date/Time April 28, 2025 10:2 2am [facility] Medical Records Department [address] [place] [address] Progress Note - Hospitalist 04/28/25708 MR#: [id number] Acct: [id number] Name: ZENAIDA EVANS Rep #:[id number] : 1935 89 From: Ariella Breaux MD PCP: Dr. Susannah Capellan MD Status:AD M IN Location: [place] [id number] Reason for Visit Reason for Visit: Diagnoses Orthostatic hypotension (04/27/25) Acute kidney failure, unspecified (04/27/25) Hypoxemia (04/27/25) Subjective Subjective Patient notes feeling significantly improved since initial ED arrival. She denies any lightheadedness or dizziness. Repeat orthostatics this morning however significant with laying systolic 180, seated systolic 156 and standing systolic 130 although she denies any significant symptoms which she had the day prior. Patient also with ambulatory oxygenation assessment with no need for anysupplementation. Discussed patient renal function improvement with plan for continue judicious IV fluids with repeat orthostatics later in the day and if improved would plan follow-up outpatient with repeat assessment however if ongoing significant orthostatics would plan continue judicious hydration overnight and possible reassessment for discharge 04/29/2025 which patient is amenable. Patient denies fevers, chills, nausea, emesis, abdominal pain, chest pain or dyspnea. Objective Data Objective Data Vital Signs: Vital Signs Temp Pulse Resp BP Pulse Ox O2 Del Method 97.7 F L 70 15 148/67 H 92 Room Air 04/28/25 05:50 04/28/25 05:50 04/28/25 05:50 04/28/25 05:50 04/28/25 05:50 04/28/25 05:50 Oxygen Delivery Method Room Air Weight: 125 lb Body Mass Index (BMI) 20.1 Intake & Output: Intake and Output for Last 24 Hours 04/26/25 04/27/25 04/28/25 23:59 23:59 23:59 Intake Total 1200 / 1200 990 / 990 Balance 1200 / 1200 990 / 990 Lab / Micro Data 04/28/25 05:30 04/28/25 05:30 Labs: Laboratory Results - last 24 hr 04/27/25 15:29: WBC 4.5, RBC 3.65 L, Hgb 11.4 L, Hct 34.4 L, MCV 94.2, MCH 31.2,MCHC 33.1, RDW Std Deviation 43.3, RDW Coeff of Gabriella 12.5, Plt Count 245, MPV 9.6, Immature Gran % (Auto) 0.200, Neut % (Auto) 49.1, Lymph % (Auto) 32.8, White% (Auto) 12.7 H, Eos % (Auto) 4.5, Baso % (Auto) 0.7, Absolute Neuts (auto) 2.2,Absolute Lymphs (auto) 1.47, Nucleated RBC % 0, Sodium 140, Potassium 4.3, Chloride 100, Carbon Dioxide 28.2, Anion Gap 12, BUN 44 H, Creatinine 1.78 H, Estim Creat Clear Calc 20.09 L, Est GFR (MDRD) Non-Af 27 L, BUN/Creatinine Ratio 24.7 H, Glucose 110 H, Calcium 10.1, Troponin T High Sens 89 H* D, NT pro BNP II614 04/27/25 17:34: Troponin T Hi Sens 2 Hr 84 H* 04/28/25 05:30: WBC 4.3 L, RBC 3.23 L, Hgb 10.2 L, Hct 30.1 L, MCV 93.2, MCH 31.6, MCHC 33.9, RDW Std Deviation 43.0, RDW Coeff of Gabriella 12.6, Plt Count 213, MPV 9.5, Sodium 140, Potassium 4.3, Chloride 104, Carbon Dioxide 27.4, Anion Gap8, BUN 34 H, Creatinine 1.17, Estim Creat Clear Calc 29.75 L, Est GFR (MDRD) Non-Af 45 L, BUN/Creatinine Ratio 29.1 H, Glucose 90, Calcium 9.2 Radiography Diagnostic Testing: Radiology Impression Chest X-Ray 04/27/25 15:16 IMPRESSION: No evidence of acute cardiopulmonary disease. Reading Location: [facility] Chest CTA 04/27/25 17:29 IMPRESSION: No pulmonary embolism. Left kidney indeterminate lesion. Further characterization with nonemergent ultrasound is recommended to determine if it is cystic. Chronic and ancillary findings as above. Reading Location: [id number] Physical Exam Narrative Physical Examination: General: Awake, alert, oriented x 3 and cooperative, laying in the PCU bed, notes feeling improved since initial ED arrival, no recurrent lightheadedness ordizziness. Skin: Normal color, normal turgor, no icterus, no cyanosis except occasional stage ecchymoses, abrasion. HEENT: AT/NC, EOMI, PERRLA, MMM. Lungs: Mildly diminished, greater bases, proper effort, no rales, ronchi or wheezing. Heart: Regular rate and rhythm; no gallop, rub audible. Abdomen: Soft, NTTP, ND, normal BS. Extremities: No cyanosis, no clubbing, no significant distal edema noted. Neurological: Patient awake, alert, oriented as noted, cognitive function intact; pupils equally reactive to light and accommodation, cranial nerves grossly normal, moving all 4 extremities, no focal deficits, strength improved, mildly globally decreased, moving the bed with ease. Psychiatric: Affect appears rested, notes eager for discharge but awaiting further evaluation as orthostatics have been notable, no acute evidence of depressive or anxiety feelings. Assessment & Plan Assessment/Plan (1) BRIGHT (acute kidney injury): (2) Orthostatic hypotension: (3) Hypoxia: PLAN: Plan The patient is an 89 y/o F w/ PMHx: HFpEF, HTN, HLD, Hx recent LLE DVT on eliquis, Hypothyroidism, CKD stage IIIb per record, Hx Breast CA unclear type inremission who presents to the [facility] ED on 04/27/25 secondary to significant dizziness and lightheadedness. #1. Acute kidney injury on CKD stage IIIb secondary to suspected dehydration/hypovolemia as well as nephrotoxic medication associated with orthostatic hypotension: Admitted to PCU, maintained on monitor, very judiciously hydrated, admission BUN/creatinine 44/1.78, baseline creatinine primarily 1.1-1.2, notable orthostatics in the ED with standing with symptomaticlightheadedness at that time, nephrotoxic medication held including indapamide and dapagliflozin. 04/28/2020 5 repeat BUN/creatinine 30/1.17, GFR 45, notably improved. 04/28/25 AM repeat orthostatics however significant with again laying systolic 180, seated 156 and standing 130 however at this time patient was not symptomatic. Given this we will continue to judiciously hydrate and repeat orthostatics later in the day 04/28/25 and if this continues to improve would plan possible discharge to home otherwise may need to reassess with repeat orthostatics 04/29/25 AM. #2. Exertional hypoxia of unclear etiology: Upon ED arrival patient with O2 saturation 95% on room air with good activity desaturated down to 85% requiring 2 L nasal cannula, CTPA with no obvious acute findings, recent echocardiogram 04/10/25 with mild pulmonary hypertension otherwise no overt concerning findings. Recent cardiac catheterization same day with noted nonobstructive coronary arteries with recommendation for ongoing medical management. 03/29/2025 ambulatory oxygenation trial with no need for supplementation fortunately. #3. Recent left lower extremity DVT: Recent hospitalization in March with DVT acutely in the left gastrocnemius and posterior tibial veins, will continue on home Eliquis regimen, notes compliance with this medication however CTPA was obtained upon ED evaluation negative for pulmonary emboli of note. #4. HFpEF, chronic: Following with [facility] cardiology, will continue Eliquis, clonidine, labetalol, holding indapamide and dapagliflozin given acute kidney injury as noted, per current list does not appear to be on statin therapywith noted myalgia intolerance. Patient with significant medication allergy list including to several other blood pressure medications. Initiated upon admission on nifedipine 60 mg daily and likely will need to be discharged off diuretics at least temporarily with follow-up with cardiology outpatient. #5. Hypertension: Continue home regimen including cautiously labetalol, clonidine, nifedipine added with hold as noted on indapamide given BRIGHT #1, PRN hydralazine. #6. Hyperlipidemia: Not on statin therapy given intolerance with myalgias, defer to outpatient. #7. Hypothyroidism: Continue patient home levothyroxine regimen. #8. History of breast cancer: Unclear type, unclear exact interventions, considered in remission, encourage follow-up outpatient as previously arranged. #9. DVT prophylaxis: Eliquis #10. CODE STATUS: Full Code. Charges/Coding Visit Charges Inpatient E&M: 86953 Subs Hosp L2 04/28/25 1022 <Electronically signed by Ariella Breaux MD> Cosigner Signature (if applicable): CC: ~ Signed [facility] Work Phone: 1(409) 143-726207-12-2025 Progress note [facility] Medical Records Department [address] [place] [address] Progress Note - Hospitalist 04/28/25 0709 MR#: [id number] Acct: [id number] Name: ZENAIDA EVANS Rep #:[id number] : 1935 89 From: Ariella Breaux MD PCP: Dr. Susannah Capellan MD Status:AD M IN Location: [place] [id number] Reason for Visit Reason for Visit: Diagnoses Orthostatic hypotension (04/27/25) Acute kidney failure, unspecified (04/27/25) Hypoxemia (04/27/25) Subjective Subjective Patient notes feeling significantly improved since initial ED arrival. She denies any lightheadedness or dizziness. Repeat orthostatics this morning however significant with laying systolic 180, seated systolic 156 and standing systolic 130 although she denies any significant symptoms which she hadthe day prior. Patient also with ambulatory oxygenation assessment with no need for anysupplementation. Discussed patient renal function improvement with plan for continue judicious IV fluids with repeat orthostatics later in the day and if improved would plan follow-up outpatient with repeat assessment however if ongoing significant orthostatics would plan continue judicious hydration overnight and possible reassessment for discharge 04/29/2025 which patient is amenable. Patient denies fevers, chills, nausea, emesis, abdominal pain, chest pain or dyspnea. Objective Data Objective Data Vital Signs: Vital Signs Temp Pulse Resp BP Pulse Ox O2 Del Method 97.7 F L 70 15 148/67 H 92 Room Air 04/28/25 05:50 04/28/25 05:50 04/28/25 05:50 04/28/25 05:50 04/28/25 05:50 04/28/25 05:50 Oxygen Delivery Method Room Air Weight: 125 lb Body Mass Index (BMI) 20.1 Intake & Output: Intake and Output for Last 24 Hours 04/26/25 04/27/25 04/28/25 23:59 23:59 23:59 Intake Total 1200 / 1200 990 / 990 Balance 1200 / 1200 990 / 990 Lab / Micro Data 04/28/25 05:30 04/28/25 05:30 Labs: Laboratory Results - last 24 hr 04/27/25 15:29: WBC 4.5, RBC 3.65 L, Hgb 11.4 L, Hct 34.4 L, MCV 94.2, MCH 31.2,MCHC 33.1, RDW Std Deviation 43.3, RDW Coeff of Gabriella 12.5, Plt Count 245, MPV 9.6, Immature Gran % (Auto) 0.200, Neut % (Auto) 49.1, Lymph % (Auto) 32.8, White% (Auto) 12.7 H, Eos % (Auto) 4.5, Baso % (Auto) 0.7, AbsoluteNeuts (auto) 2.2,Absolute Lymphs (auto) 1.47, Nucleated RBC % 0, Sodium 140, Potassium 4.3, Chloride 100, Carbon Dioxide 28.2, Anion Gap 12, BUN 44 H, Creatinine 1.78 H, Estim Creat Clear Calc 20.09 L, Est GFR (MDRD) Non-Af 27 L, BUN/Creatinine Ratio 24.7 H, Glucose 110 H, Calcium 10.1, Troponin T High Sens 89 H* D, NT pro BNP II614 04/27/25 17:34: Troponin T Hi Sens 2 Hr 84 H* 04/28/25 05:30: WBC 4.3 L, RBC 3.23 L, Hgb 10.2 L, Hct 30.1 L, MCV 93.2, MCH 31.6, MCHC 33.9, RDW Std Deviation 43.0, RDW Coeff of Gabriella 12.6, Plt Count 213, MPV 9.5, Sodium 140, Potassium 4.3, Chloride 104, Carbon Dioxide 27.4, Anion Gap8, BUN 34 H, Creatinine 1.17, Estim Creat Clear Calc 29.75 L, Est GFR (MDRD) Non-Af 45 L, BUN/Creatinine Ratio 29.1 H, Glucose 90, Calcium 9.2 Radiography Diagnostic Testing: Radiology Impression Chest X-Ray 04/27/25 15:16 IMPRESSION: No evidence of acute cardiopulmonary disease. Reading Location: [facility] Chest CTA 04/27/25 17:29 IMPRESSION: No pulmonary embolism. Left kidney indeterminate lesion. Further characterization with nonemergent ultrasound is recommended to determine if it is cystic. Chronic and ancillary findings as above. Reading Location: [place] [id number] Physical Exam Narrative Physical Examination: General: Awake, alert, oriented x 3 and cooperative, laying in the PCU bed, notes feeling improved since initial ED arrival, no recurrent lightheadedness ordizziness. Skin: Normal color, normal turgor, no icterus, no cyanosis except occasional stage ecchymoses, abrasion. HEENT: AT/NC, EOMI, PERRLA, MMM. Lungs: Mildly diminished, greater bases, proper effort, no rales, ronchi or wheezing. Heart: Regular rate and rhythm; no gallop, rub audible. Abdomen: Soft, NTTP, ND, normal BS. Extremities: No cyanosis, no clubbing, no significant distal edema noted. Neurological: Patient awake, alert, oriented as noted, cognitive function intact; pupils equally reactive to light and accommodation, cranial nerves grossly normal, moving all 4 extremities, no focaldeficits, strength improved, mildly globally decreased, moving the bed with ease. Psychiatric: Affect appears rested, notes eager for discharge but awaiting further evaluation as orthostatics have been notable, no acute evidence of depressive or anxiety feelings. Assessment & Plan Assessment/Plan (1) BRIGHT (acute kidney injury): (2) Orthostatic hypotension: (3) Hypoxia: PLAN: Plan The patient is an 89 y/o F w/ PMHx: HFpEF, HTN, HLD, Hx recent LLE DVT on eliquis, Hypothyroidism, CKD stage IIIb per record, Hx Breast CA unclear type inremission who presents to the [facility] ED on 04/27/25 secondary to significant dizziness and lightheadedness. #1. Acute kidney injury on CKD stage IIIb secondary to suspected dehydration/hypovolemia as well asnephrotoxic medication associated with orthostatic hypotension: Admitted to PCU, maintained on monitor, very judiciously hydrated, admission BUN/creatinine 44/1.78, baseline creatinine primarily 1.1-1.2, notable orthostatics in the ED with standing with symptomaticlightheadedness at that time, nephrotoxic medication held including indapamide and dapagliflozin. 04/28/2020 5 repeat BUN/creatinine 30/1.17, GFR 45, notably improved. 04/28/25 AM repeat orthostatics however significant with again laying systolic 180, seated 156 and standing 130 however at this time patient was not symptomatic. Given this we will continue to judiciously hydrate and repeat orthostatics later in the day 04/28/25 and ifthis continues to improve would plan possible discharge to home otherwise may need to reassess withrepeat orthostatics 04/29/25 AM. #2. Exertional hypoxia of unclear etiology: Upon ED arrival patient with O2 saturation 95% on room air with good activity desaturated down to 85% requiring 2 L nasal cannula, CTPA with no obvious acute findings, recent echocardiogram 04/10/25 with mild pulmonary hypertension otherwise no overt concerning findings. Recent cardiac catheterization same day with noted nonobstructive coronary arteries with recommendation for ongoing medical management. 03/29/2025 ambulatory oxygenation trial with no need for supplementation fortunately. #3. Recent left lower extremity DVT: Recent hospitalization in March with DVT acutely in the left gastrocnemius and posterior tibial veins, will continue on home Eliquis regimen, notes compliance withthis medication however CTPA was obtained upon ED evaluation negative for pulmonary emboli of note. #4. HFpEF, chronic: Following with [facility] cardiology, will continue Eliquis, clonidine, labetalol, holding indapamide and dapagliflozin given acute kidney injury as noted, per current list does not appear to be on statin therapywith noted myalgia intolerance. Patient with significant medication allergy list including to several other blood pressure medications. Initiated upon admission on nifedipine 60 mg daily and likely will need to be discharged off diuretics at least temporarily with follow-up with cardiology outpatient. #5. Hypertension: Continue home regimen including cautiously labetalol, clonidine, nifedipine addedwith hold as noted on indapamide given BRIGHT #1, PRN hydralazine. #6. Hyperlipidemia: Not on statin therapy given intolerance with myalgias, defer to outpatient. #7. Hypothyroidism: Continue patient home levothyroxine regimen. #8. History of breast cancer: Unclear type, unclear exact interventions, considered in remission, encourage follow-up outpatient as previously arranged. #9. DVT prophylaxis: Eliquis #10. CODE STATUS: Full Code. Charges/Coding Visit Charges Inpatient E&M: 69353 Subs Hosp L2 04/28/25 1022 Cosigner Signature (if applicable): CC: ~ Signed [facility]07-12-2025 Discharge summary Author Keith Cronin [facility] Note Date/Time April 27, 2025 10:2 3pm [facility] Medical Records Department [address] [place] [address] Emergency Department Summary 04/27/25 MR#: [id number] Acct: [id number] Name: ZENAIDA EVANS Rep #:[id number] : 1935 89 From: Keith Cronin MD PCP: Dr. Susannah Capellan MD Status:AD M IN Location: [facility] [id number] [facility] <JOHNNA Witt - Last Filed: 04/27/25 19:52> History of Present Illness Chief Complaint: Dizziness Narrative Narrative: 89-year-old female with past medical history of HTN, HLD, CHF, left lower extremity DVT on Eliquis, hypothyroidism was sent in by her primary care office for low oxygen levels. She was admitted for an NSTEMI on 04/09/2025. Dr. Reyes heart cath which she said was negative. She had an ultrasound showing a left leg DVT and was started on Eliquis. Since she went home on Eliquis she reports feeling lightheaded with standing. She will have to hold onto the counter lowerher head for minute until it passes. She denies syncope, she denies room spinning. She states she is also felt short of breath when walking around her home or going upstairs since then. No chest pain since her admission. She followed up with her primary care office today and her pulse ox was 88% so they recommended she come to the ED. Her baseline weight is 130 pounds and she takesLasix if she is up 3 pounds but she has not needed to do this for a long time. She states she is actually lost weight and is around 125. PFS <JOHNNA Witt - Last Filed: 04/27/25 19:52> [facility] Medical History CHF (congestive heart failure) Home Medications ?Medication ?Instructions ?Recorded ?Last Taken ?Type levothyroxine 88 mcg tablet 88 mcg PO DAILY thyroid 04/09/25 History labetalol 200 mg tablet 100 mg PO BID Blood pressure 10/16/19 04/09/25 History melatonin 5 mg capsule 5 mg PO QHS Sleep 10/16/19 0 04/09/25 History clonidine 0.1 mg/24 hr weekly 1 patch transdermal QWEE K 11/06/23 04/09/25 History transdermal patch Hypertension minoxidil 2.5 mg tablet 2.5 mg PO DAILY Hair 5 Unknown History nitroglycerin 0.4 mg sublingual 0.4 mg sublingual PRN Chest pain 04/09/25 Unknown History tablet biotin 5 mg capsule 5 mg PO DAILY Supplement Unknown History dapagliflozin propanediol 5 mg 5 mg PO DAILY Heart Rich lure 04/10/25 Unknown History tablet (Farxiga) ketoconazole 2 % shampoo 1 applic topical .2-3 times weekly 04/10/25 Unknown History Rash apixaban 5 mg tablet (Eliquis) 5 mg PO BID 30 days #60 tabs 04/11/25 Unknown Rx indapamide 2.5 mg tablet 2.5 mg PO DAILY 04/27/25 Unk nown History Allergy/AdvReac Type Severity Reaction Status Date / Time iron Allergy Unknown Verified 04/27/25 13:16 pentazocine (From Talwin) Allergy Other Verified 04/27/25 13:16 scopolamine Allergy Other Verified 04/27/25 13:16 amlodipine AdvReac Unknown Significant Verified 04/27/25 13:16 swelling ARB-Angiotensin Receptor AdvReac Unknown BRIGHT/ Verified 04/27/25 13:16 Antagonist Hyperkalemia atorvastatin (From Lipitor) AdvReac Unknown Myalgia Verified 04/27/25 13:16 empagliflozin (From AdvReac Unknown Diarrhea Verified 04/27/25 13:16 Jardiance) hydralazine AdvReac Unknown Intolerance/ Verified 04/27/25 13:16 Nausea hydrochlorothiazide (hctz) AdvReac Unknown Containdication/ Verified 04/27/25 13:16 Hyponatremia losartan AdvReac Unknown BRIGHT with Verified 04/27/25 13:16 elevated potassium and creatinine spironolactone AdvReac Unknown Caused BP Verified 04/27/25 13:16 to go up verapamil AdvReac Unknown GI Upset Verified 04/27/25 13:16 Family History no significant family his Social History Smoking Status: Former smoker EXAM <JOHNNA Witt - Last Filed: 04/27/25 19:52> Physical Exam Const Vital Signs: 04/27/25 13:15 04/27/25 15:15 04/27/25 15:16 Temperature 98 F Temperature Source Oral Pulse Rate 78 89 Pulse Rate [Lying] 64 Pulse Rate [Sitting (for 1 minute prior to obtaining)] 78 Pulse Rate [Standing (for 1 minute prior to obtaining)] 65 Respiratory Rate 16 14 Blood Pressure 147/72 H 139/66 H Blood Pressure [Lying] 186/76 H Blood Pressure [Sitting (for 1 minute prior to obtaining)] 173/78 H Blood Pressure [Standing (for 1 minute prior to obtaining)] 134/70 H Blood Pressure Mean 97 90 Blood Pressure Mean [Lying] 112 Blood Pressure Mean [Sitting (for 1 minute prior to obtaining)] 109 Blood Pressure Mean [Standing (for 1 minute prior to obtaining)] 91 Pulse Ox 95 98 Oxygen Delivery Method Room Air 04/27/25 17:05 04/27/25 17:11 04/27/25 17:12 Temperature Temperature Source Pulse Rate 56 L 58 L 57 L Pulse Rate [Lying] Pulse Rate [Sitting (for 1 minute prior to obtaining)] Pulse Rate [Standing (for 1 minute prior to obtaining)] Respiratory Rate 10 L 9 L 11 L Blood Pressure 180/73 H 186/76 H 173/78 H Blood Pressure [Lying] Blood Pressure [Sitting (for 1 minute prior to obtaining)] Blood Pressure [Standing (for 1 minute prior to obtaining)] Blood Pressure Mean 103 105 106 Blood Pressure Mean [Lying] Blood Pressure Mean [Sitting (for 1 minute prior to obtaining)] Blood Pressure Mean [Standing (for 1 minute prior to obtaining)] Pulse Ox 98 98 98 Oxygen Delivery Method Room Air 04/27/25 17:15 04/27/25 17:30 04/27/25 17:30 Temperature Temperature Source Pulse Rate 74 56 L Pulse Rate [Lying] Pulse Rate [Sitting (for 1 minute prior to obtaining)] Pulse Rate [Standing (for 1 minute prior to obtaining)] Respiratory Rate 14 9 L Blood Pressure 134/70 H 183/68 H 183/68 H Blood Pressure [Lying] Blood Pressure [Sitting (for 1 minute prior to obtaining)] Blood Pressure [Standing (for 1 minute prior to obtaining)] Blood Pressure Mean 88 101 101 Blood Pressure Mean [Lying] Blood Pressure Mean [Sitting (for 1 minute prior to obtaining)] Blood Pressure Mean [Standing (for 1 minute prior to obtaining)] Pulse Ox 97 Oxygen Delivery Method 04/27/25 17:30 04/27/25 17:46 04/27/25 18:00 Temperature Temperature Source Pulse Rate 65 70 Pulse Rate [Lying] Pulse Rate [Sitting (for 1 minute prior to obtaining)] Pulse Rate [Standing (for 1 minute prior to obtaining)] Respiratory Rate 13 20 H Blood Pressure 183/68 H 187/84 H Blood Pressure [Lying] Blood Pressure [Sitting (for 1 minute prior to obtaining)] Blood Pressure [Standing (for 1 minute prior to obtaining)] Blood Pressure Mean 101 112 Blood Pressure Mean [Lying] Blood Pressure Mean [Sitting (for 1 minute prior to obtaining)] Blood Pressure Mean [Standing (for 1 minute prior to obtaining)] Pulse Ox 94 95 Oxygen Delivery Method 04/27/25 18:15 04/27/25 18:36 04/27/25 18:45 Temperature Temperature Source Pulse Rate 63 77 63 Pulse Rate [Lying] Pulse Rate [Sitting (for 1 minute prior to obtaining)] Pulse Rate [Standing (for 1 minute prior to obtaining)] Respiratory Rate 11 L 19 H 11 L Blood Pressure 166/84 H Blood Pressure [Lying] Blood Pressure [Sitting (for 1 minute prior to obtaining)] Blood Pressure [Standing (for 1 minute prior to obtaining)] Blood Pressure Mean 106 Blood Pressure Mean [Lying] Blood Pressure Mean [Sitting (for 1 minute prior to obtaining)] Blood Pressure Mean [Standing (for 1 minute prior to obtaining)] Pulse Ox 96 98 98 Oxygen Delivery Method Room Air 04/27/25 19:00 04/27/25 19:41 Temperature 98 F Temperature Source Pulse Rate 60 63 Pulse Rate [Lying] Pulse Rate [Sitting (for 1 minute prior to obtaining)] Pulse Rate [Standing (for 1 minute prior to obtaining)] Respiratory Rate 10 L 18 Blood Pressure 181/73 H 181/73 H Blood Pressure [Lying] Blood Pressure [Sitting (for 1 minute prior to obtaining)] Blood Pressure [Standing (for 1 minute prior to obtaining)] Blood Pressure Mean 106 109 Blood Pressure Mean [Lying] Blood Pressure Mean [Sitting (for 1 minute prior to obtaining)] Blood Pressure Mean [Standing (for 1 minute prior to obtaining)] Pulse Ox 97 96 Oxygen Delivery Method Room Air <Dr. Keith Cronin MD - Last Filed: 04/27/25 22:23> Physical Exam Const Vital Signs: 04/27/25 13:15 04/27/25 15:15 04/27/25 15:16 Temperature 98 F Temperature Source Oral Pulse Rate 78 89 Pulse Rate [Lying] 64 Pulse Rate [Sitting (for 1 minute prior to obtaining)] 78 Pulse Rate [Standing (for 1 minute prior to obtaining)] 65 Respiratory Rate 16 14 Blood Pressure 147/72 H 139/66 H Blood Pressure [Lying] 186/76 H Blood Pressure [Sitting (for 1 minute prior to obtaining)] 173/78 H Blood Pressure [Standing (for 1 minute prior to obtaining)] 134/70 H Blood Pressure Mean 97 90 Blood Pressure Mean [Lying] 112 Blood Pressure Mean [Sitting (for 1 minute prior to obtaining)] 109 Blood Pressure Mean [Standing (for 1 minute prior to obtaining)] 91 Pulse Ox 95 98 Oxygen Delivery Method Room Air 04/27/25 17:05 04/27/25 17:11 04/27/25 17:12 Temperature Temperature Source Pulse Rate 56 L 58 L 57 L Pulse Rate [Lying] Pulse Rate [Sitting (for 1 minute prior to obtaining)] Pulse Rate [Standing (for 1 minute prior to obtaining)] Respiratory Rate 10 L 9 L 11 L Blood Pressure 180/73 H 186/76 H 173/78 H Blood Pressure [Lying] Blood Pressure [Sitting (for 1 minute prior to obtaining)] Blood Pressure [Standing (for 1 minute prior to obtaining)] Blood Pressure Mean 103 105 106 Blood Pressure Mean [Lying] Blood Pressure Mean [Sitting (for 1 minute prior to obtaining)] Blood Pressure Mean [Standing (for 1 minute prior to obtaining)] Pulse Ox 98 98 98 Oxygen Delivery Method Room Air 04/27/25 17:15 04/27/25 17:30 04/27/25 17:30 Temperature Temperature Source Pulse Rate 74 56 L Pulse Rate [Lying] Pulse Rate [Sitting (for 1 minute prior to obtaining)] Pulse Rate [Standing (for 1 minute prior to obtaining)] Respiratory Rate 14 9 L Blood Pressure 134/70 H 183/68 H 183/68 H Blood Pressure [Lying] Blood Pressure [Sitting (for 1 minute prior to obtaining)] Blood Pressure [Standing (for 1 minute prior to obtaining)] Blood Pressure Mean 88 101 101 Blood Pressure Mean [Lying] Blood Pressure Mean [Sitting (for 1 minute prior to obtaining)] Blood Pressure Mean [Standing (for 1 minute prior to obtaining)] Pulse Ox 97 Oxygen Delivery Method 04/27/25 17:30 04/27/25 17:46 04/27/25 18:00 Temperature Temperature Source Pulse Rate 65 70 Pulse Rate [Lying] Pulse Rate [Sitting (for 1 minute prior to obtaining)] Pulse Rate [Standing (for 1 minute prior to obtaining)] Respiratory Rate 13 20 H Blood Pressure 183/68 H 187/84 H Blood Pressure [Lying] Blood Pressure [Sitting (for 1 minute prior to obtaining)] Blood Pressure [Standing (for 1 minute prior to obtaining)] Blood Pressure Mean 101 112 Blood Pressure Mean [Lying] Blood Pressure Mean [Sitting (for 1 minute prior to obtaining)] Blood Pressure Mean [Standing (for 1 minute prior to obtaining)] Pulse Ox 94 95 Oxygen Delivery Method 04/27/25 18:15 04/27/25 18:36 04/27/25 18:45 Temperature Temperature Source Pulse Rate 63 77 63 Pulse Rate [Lying] Pulse Rate [Sitting (for 1 minute prior to obtaining)] Pulse Rate [Standing (for 1 minute prior to obtaining)] Respiratory Rate 11 L 19 H 11 L Blood Pressure 166/84 H Blood Pressure [Lying] Blood Pressure [Sitting (for 1 minute prior to obtaining)] Blood Pressure [Standing (for 1 minute prior to obtaining)] Blood Pressure Mean 106 Blood Pressure Mean [Lying] Blood Pressure Mean [Sitting (for 1 minute prior to obtaining)] Blood Pressure Mean [Standing (for 1 minute prior to obtaining)] Pulse Ox 96 98 98 Oxygen Delivery Method Room Air 04/27/25 19:00 04/27/25 19:41 Temperature 98 F Temperature Source Pulse Rate 60 63 Pulse Rate [Lying] Pulse Rate [Sitting (for 1 minute prior to obtaining)] Pulse Rate [Standing (for 1 minute prior to obtaining)] Respiratory Rate 10 L 18 Blood Pressure 181/73 H 181/73 H Blood Pressure [Lying] Blood Pressure [Sitting (for 1 minute prior to obtaining)] Blood Pressure [Standing (for 1 minute prior to obtaining)] Blood Pressure Mean 106 109 Blood Pressure Mean [Lying] Blood Pressure Mean [Sitting (for 1 minute prior to obtaining)] Blood Pressure Mean [Standing (for 1 minute prior to obtaining)] Pulse Ox 97 96 Oxygen Delivery Method Room Air MDM <JOHNNA Witt - Last Filed: 04/27/25 19:52> [facility] MDM Narrative Medical decision making narrative: Differential includes but not limited to pneumonia, ACS, PE 89-year-old female presents with dyspnea on exertion and lightheadedness over the last 2 weeks. No chest pain. She is awake and alert in no distress. Vitalsigns are stable. She speaking full sentences without distress and is 95% or above on room air. Heart regular. Lungs clear. Abdomen soft and nontender. Overall exam is benign. Orthostatic vital signs were positive so she was given IV fluids. Hemoglobin of 11.4 is chronic. Electrolytes are normal. Renal function is elevated at BUN 44, creatinine 1.78. Previously creatinine was 1.19. This is being treated with IV fluids. EKG is normal sinus rhythm withoutischemic changes. Serial troponins are 89 and 84; this is similar to her admission 2 and half weeks ago for an NSTEMI. At that time her cardiac catheterization showed no significant coronary artery disease and they recommended medical management. She does not have chest pain currently and I amnot sure why they have not trended down more. CXR is negative. She was 95% on room air but dropped to 85% with ambulation so although she is on Eliquis for DVT, CTA was ordered to rule out anticoagulation failure and a PE. CTA shows nopulmonary embolism and no acute findings. There is a incidental left kidney lesion which we will outpatient follow-up. Since she has ambulatory hypoxia [facility] admission. I discussed the case with the hospitalist. External records reviewed 04/09/2025 cardiac Catheterization Nonobstructive coronary arteries, EF 65% I have personally performed a face to face assessment of the patient and have reviewed the RONNIE Note. I performed a substantive portion of the visit including all aspects of the following. My carrasquillo findings include: History is remarkable for patient presenting from physicians office. She informing that she had to sign a piece of paper since that she did not want ambulance transport. Her doctors nurse practitioner Eve, contacted the emergency department. She was concerned about congestive heart failure pulmonary embolus. Patient is describing dizziness which is described as problems with balance last seconds when she changes position from supine or sitting to standing. She denies double vision, blurred vision loss of vision. Denies being her ears decreased hearing. Denies trouble with speech or swallowing. She denies orthopnea or PND. She denies chest discomfort of any type. She denies black or maroon-colored stool. She denies paresthesia, anesthesia or motor weakness. Initially patient was flustered and stated she needed a CAT scan. She also was unable to tell me what she meant by dizziness. After asking if it meant the room spinning versus her spinning versus lightheaded her response was "I am confused. I really do not have a good answer. "After reasking the question it was determined that patient has problem with her balance when she goes from a supine or sitting position to a standing position. This last seconds. Exam is unremarkable. She is a pleasant elderly woman. She is in no distress. Her blood pressure is slightly elevated. Head is atraumatic normocephalic. There is no abnormality of the TMs and the external auditory canals are not occluded. Nares patent. Uvula midline. No deviation tongue or protrusion. Neck is supple. There is no carotid bruits. There is no dysmetria. Heel arreola to heel is normal. Motor sensory are intact. Cranials 2 through 12 are intact. Alert and oriented x 3. Medical Decision Making in my opinion patient has paroxysmal benign positional vertigo. Because there was confusion and what she was told by the nurse practitioner slightly larger workup was undertaken that I normally would have ordered. Other additions or changes: [None] Lab Data Labs: Laboratory Results - last 24 hr 04/27/25 04/27/25 15:29 17:34 WBC 4.5 RBC 3.65 L Hgb 11.4 L Hct 34.4 L MCV 94.2 MCH 31.2 MCHC 33.1 RDW Std Deviation 43.3 RDW Coeff of Gabriella 12.5 Plt Count 245 MPV 9.6 Immature Gran % (Auto) 0.200 Neut % (Auto) 49.1 Lymph % (Auto) 32.8 White % (Auto) 12.7 H Eos % (Auto) 4.5 Baso % (Auto) 0.7 Absolute Neuts (auto) 2.2 Absolute Lymphs (auto) 1.47 Nucleated RBC % 0 Sodium 140 Potassium 4.3 Chloride 100 Carbon Dioxide 28.2 Anion Gap 12 BUN 44 H Creatinine 1.78 H Estim Creat Clear Calc 20.09 L Est GFR (MDRD) Non-Af 27 L BUN/Creatinine Ratio 24.7 H Glucose 110 H Calcium 10.1 Troponin T High Sens 89 H* D Troponin T Hi Sens 2 Hr 84 H* NT pro BNP II 614 Radiography Diagnostic Testing: Clinical Impression(s) from Imaging Studies Chest X-Ray 04/27/25 15:16 IMPRESSION: No evidence of acute cardiopulmonary disease. Reading Location: [id number] Chest CTA 04/27/25 17:29 IMPRESSION: No pulmonary embolism. Left kidney indeterminate lesion. Further characterization with nonemergent ultrasound is recommended to determine if it is cystic. Chronic and ancillary findings as above. Reading Location: [id number] ED attending interpretation of 2 view chest x-ray shows normal heart size, no acute infiltrate, edema, or effusion. <Dr. Keith Cronin MD - Last Filed: 04/27/25 22:23> [facility] MDM Narrative Medical decision making narrative: Differential includes but not limited to pneumonia, ACS, PE 89-year-old female presents with dyspnea on exertion and lightheadedness over the last 2 weeks. No chest pain. She is awake and alert in no distress. Vital signs are stable. She speaking full sentences without distress and is 95% or above on room air. Heart regular. Lungs clear. Abdomen soft and nontender. Overall exam is benign. Orthostatic vital signs were positive so she was given IV fluids. Hemoglobin of 11.4 is chronic. Electrolytes are normal. Renal function is elevated at BUN 44, creatinine 1.78. Previously creatinine was 1.19. This is being treated with IV fluids. EKG is normal sinus rhythm without ischemic changes. Serial troponins are 89 and 84; this is similar to her admission 2 and half weeks ago for an NSTEMI. At that time her cardiac catheterization showed no significant coronary artery disease and they recommended medical management. She does not have chest pain currently and I am not sure why they have not trended down more. CXR is negative. She was 95% on room air but dropped to 85% with ambulation so although she is on Eliquis for DVT, CTA was ordered to rule out anticoagulation failure and a PE. CTA shows no pulmonary embolism and no acute findings. There is a incidental left kidney lesion which we will outpatient follow-up. Since she has ambulatory hypoxia she requires admission. I discussed the case with the hospitalist. External records reviewed 04/09/2025 cardiac Catheterization Nonobstructive coronary arteries, EF 65% I have personally performed a face to face assessment of the patient and have reviewed the RONNIE Note. I performed a substantive portion of the visit including all aspects of the following. My carrasquillo findings include: History is remarkable for patient presenting from physicians office. She informing that she had to sign a piece of paper since that she did not want ambulance transport. Her doctors nurse practitioner Eve, contacted the emergency department. She was concerned about congestive heart failure pulmonary embolus. Patient is describing dizziness which is described as problems with balance last seconds when she changes position from supine or sitting to standing. She denies double vision, blurred vision loss of vision. Denies being her ears decreased hearing. Denies trouble with speech or swallowing. She denies orthopnea or PND. She denies chest discomfort of any type. She denies black or maroon-colored stool. She denies paresthesia, anesthesia or motor weakness. Initially patient was flustered and stated she needed a CAT scan. She also was unable to tell me what she meant by dizziness. After asking if it meant the room spinning versus her spinning versus lightheaded her response was "I am confused. I really do not have a good answer. "After reasking the question it was determined that patient has problem with her balance when she goes from a supine or sitting position to a standing position. This last seconds. Exam is unremarkable. She is a pleasant elderly woman. She is in no distress. Her blood pressure is slightly elevated. Head is atraumatic normocephalic. There is no abnormality of the TMs and the external auditory canals are not occluded. Nares patent. Uvula midline. No deviation tongue or protrusion. Neck is supple. There is no carotid bruits. There is no dysmetria. Heel arreola to heel is normal. Motor sensory are intact. Cranials 2 through 12 are intact. Alert and oriented x 3. Medical Decision Making in my opinion patient has paroxysmal benign positional vertigo. Because there was confusion and what she was told by the nurse practitioner slightly larger workup was undertaken that I normally would have ordered. Other additions or changes: Patient desaturated with ambulation. With unremarkable chest x-ray history of PE even though she is anticoagulant CT of the chest was obtained. CT of the chest reveals no abnormality. She also was orthostatic after fluid boluses. Hospitalist was paged for admission Lab Data Attestation: I reviewed the patient's lab results. Lab results narrative: CBC is remarkable for H&H of 11.4 and 34.4 with normal indices. Electrolyte panel was an elevated BUN/creatinine of 44 and 1.78. BUN/creatinine ratio was approximate 25-1. First troponin is elevated 89. This may be on the way down. BNP was normal. Labs: Laboratory Results - last 24 hr 04/27/25 04/27/25 15:29 17:34 WBC 4.5 RBC 3.65 L Hgb 11.4 L Hct 34.4 L MCV 94.2 MCH 31.2 MCHC 33.1 RDW Std Deviation 43.3 RDW Coeff of Gabriella 12.5 Plt Count 245 MPV 9.6 Immature Gran % (Auto) 0.200 Neut % (Auto) 49.1 Lymph % (Auto) 32.8 White % (Auto) 12.7 H Eos % (Auto) 4.5 Baso % (Auto) 0.7 Absolute Neuts (auto) 2.2 Absolute Lymphs (auto) 1.47 Nucleated RBC % 0 Sodium 140 Potassium 4.3 Chloride 100 Carbon Dioxide 28.2 Anion Gap 12 BUN 44 H Creatinine 1.78 H Estim Creat Clear Calc 20.09 L Est GFR (MDRD) Non-Af 27 L BUN/Creatinine Ratio 24.7 H Glucose 110 H Calcium 10.1 Troponin T High Sens 89 H* D Troponin T Hi Sens 2 Hr 84 H* NT pro BNP II 614 Radiography Diagnostic Testing: Clinical Impression(s) from Imaging Studies Chest X-Ray 04/27/25 15:16 IMPRESSION: No evidence of acute cardiopulmonary disease. Reading Location: [facility] Chest CTA 04/27/25 17:29 IMPRESSION: No pulmonary embolism. Left kidney indeterminate lesion. Further characterization with nonemergent ultrasound is recommended to determine if it is cystic. Chronic and ancillary findings as above. Reading Location: [id number] Discharge Plan Dx/Rx/DC Orders Clinical Impression: Hypoxia, Orthostatic hypotension, Elevated troponin, History of non-ST elevation myocardial infarction (NSTEMI), History of deep vein thrombosis (DVT) of lower extremity Disposition Disposition: Acute Care Hospital [facility] Discharge Date/Time: 04/27/25 21:02 What to do if you have Problems For any increased pain, shortness of breath, bleeding, nausea or vomiting, chest pain, or any unexpected problems, contact your Primary Care Provider. Call [facility] ([phone]) or report to the closest Emergency Room. Call 911 if necessary. 04/27/252222 <Electronically signed by Keith Cronin MD> Cosigner Signature (if applicable): 04/27/251951 <Electronically signed by Agustín OROPEZA> CC: Dr. Susannah Capellan MD ~ Signed [facility] Work Phone: 1(327) 213-829207-12-2025 History and physical note Author Adilson Melchor [facility] Note Date/Time April 27, 2025 10:1 1pm [facility] Medical Records Department [address] [place] [address] H&P Exam - Hospitalist 04/27/251935 MR#: [id number] Acct: [id number] Name: ZENAIDA EVANS Rep #:[id number] : 1935 89 From: Adilson Moyer estephania DO PCP: Dr. Susannah Capellan MD Status:AD M IN Location: [facility] [id number] HPI - General General Date of Admission: 04/27/25 Date of Service: 04/27/25 Chief Complaint: Dizziness and hypoxia HPI Narrative ZENAIDA EVANS, is a 89 F who presented to [facility] ED on 04/27/2025 with dizziness and hypoxia. Patient was recently hospitalized here from 04/09- 04/11 for an NSTEMI. Medical history significant for HFpEF, hypertension, CKD stage IIIb and hypothyroidism. Follows with [facility] cardiology. Left heart cath showed only mild disease in circumflex and RCA and moderate disease up to 50% in the LAD. Echo showed EF 60%, stage I diastolic dysfunction, no other concerning findings. Lower extremity ultrasound did show an acute DVT in the left gastroc and posterior tibial veins, but CTA chest showed no PE. Patient was discharged home on Eliquis 5 mg twice daily at that time; decision was made to not give loading dose given small DVT to minimize risk of bleeding. Patient notes that since returning home she has had intermittent lightheadedness and dizziness with standing. Denies any syncopal events. She is also felt some shortness of breath when walking around the home. She saw her PCP today and her pulse ox was 88%, so they recommended she come infor further evaluation. In the ED she was hypertensive to the 180s systolic andoxygen saturation was 95% on room air but dropped to 85% with exertion. CBC wasbenign. BMP showed creatinine 1.78 (baseline around 1.1-1.2), BUN 44. Troponintrend 89 > 84 but these were stable from prior values. NT proBNP normal at 614. CTA chest showed no PE, stable small pulmonary nodules and otherwise clear lungfields. Orthostatic vitals were obtained and were positive, with SBP drop from 173 sitting to 134 standing. Given her BRIGHT with orthostatic hypotension and hypoxia with exertion, hospitalist was contacted for admission. I saw the patient at bedside in the ED. She was sitting back comfortably in bed, conversing normally, in no acute distress. She denied any lightheadedness or dizziness at rest. Denied any chest pain or shortness of breath. Noted that she has been taking her home medications as prescribed and her urine output has been slightly decreased over the past few days. She does report drinking lots of fluids recently. She denies any other acute concerns currently. Will be admitted for further management. [facility] Medical History CHF (congestive heart failure) Home Medications ?Medication ?Instructions ?Recorded ?Last Taken ?Type levothyroxine 88 mcg tablet 88 mcg PO DAILY thyroid 04/09/25 History labetalol 200 mg tablet 100 mg PO BID Blood pressure 10/16/19 04/09/25 History melatonin 5 mg capsule 5 mg PO QHS Sleep 10/16/19 0 04/09/25 History clonidine 0.1 mg/24 hr weekly 1 patch transdermal QWEE K 11/06/23 04/09/25 History transdermal patch Hypertension minoxidil 2.5 mg tablet 2.5 mg PO DAILY Hair 5 Unknown History nitroglycerin 0.4 mg sublingual 0.4 mg sublingual PRN Chest pain 04/09/25 Unknown History tablet biotin 5 mg capsule 5 mg PO DAILY Supplement Unknown History dapagliflozin propanediol 5 mg 5 mg PO DAILY Heart Rich lure 04/10/25 Unknown History tablet (Farxiga) ketoconazole 2 % shampoo 1 applic topical .2-3 times weekly 04/10/25 Unknown History Rash apixaban 5 mg tablet (Eliquis) 5 mg PO BID 30 days #60 tabs 04/11/25 Unknown Rx indapamide 2.5 mg tablet 2.5 mg PO DAILY 04/27/25 Unk nown History Allergy/AdvReac Type Severity Reaction Status Date / Time iron Allergy Unknown Verified 04/27/25 13:16 pentazocine (From Talwin) Allergy Other Verified 04/27/25 13:16 scopolamine Allergy Other Verified 04/27/25 13:16 amlodipine AdvReac Unknown Significant Verified 04/27/25 13:16 swelling ARB-Angiotensin Receptor AdvReac Unknown BRIGHT/ Verified 04/27/25 13:16 Antagonist Hyperkalemia atorvastatin (From Lipitor) AdvReac Unknown Myalgia Verified 04/27/25 13:16 empagliflozin (From AdvReac Unknown Diarrhea Verified 04/27/25 13:16 Jardiance) hydralazine AdvReac Unknown Intolerance/ Verified 04/27/25 13:16 Nausea hydrochlorothiazide (hctz) AdvReac Unknown Containdication/ Verified 04/27/25 13:16 Hyponatremia losartan AdvReac Unknown BRIGHT with Verified 04/27/25 13:16 elevated potassium and creatinine spironolactone AdvReac Unknown Caused BP Verified 04/27/25 13:16 to go up verapamil AdvReac Unknown GI Upset Verified 04/27/25 13:16 Family History no significant family his Social History Smoking Status: Former smoker ROS Constitutional Constitutional: Denies chills, fatigue, fever(s) or weakness Eyes Eyes: Denies change in vision Cardiovascular Cardiovascular: Denies chest pain Respiratory/Chest Respiratory/Chest: Denies shortness of breath at rest Gastrointestinal Gastrointestinal: Denies abdominal pain Neurologic Neurologic: Reports dizziness; Denies focal weakness, headache(s), numbness or tingling Vital Signs Vital Signs Vital Signs: 04/27/25 13:15 04/27/25 15:15 04/27/25 15:16 Temperature 98 F Temperature Source Oral Pulse Rate 78 89 Pulse Rate [Lying] 64 Pulse Rate [Sitting (for 1 minute prior to obtaining)] 78 Pulse Rate [Standing (for 1 minute prior to obtaining)] 65 Respiratory Rate 16 14 Blood Pressure 147/72 H 139/66 H Blood Pressure [Lying] 186/76 H Blood Pressure [Sitting (for 1 minute prior to obtaining)] 173/78 H Blood Pressure [Standing (for 1 minute prior to obtaining)] 134/70 H Blood Pressure Mean 97 90 Blood Pressure Mean [Lying] 112 Blood Pressure Mean [Sitting (for 1 minute prior to obtaining)] 109 Blood Pressure Mean [Standing (for 1 minute prior to obtaining)] 91 Pulse Ox 95 98 Oxygen Delivery Method Room Air 04/27/25 17:05 04/27/25 17:11 04/27/25 17:12 Temperature Temperature Source Pulse Rate 56 L 58 L 57 L Pulse Rate [Lying] Pulse Rate [Sitting (for 1 minute prior to obtaining)] Pulse Rate [Standing (for 1 minute prior to obtaining)] Respiratory Rate 10 L 9 L 11 L Blood Pressure 180/73 H 186/76 H 173/78 H Blood Pressure [Lying] Blood Pressure [Sitting (for 1 minute prior to obtaining)] Blood Pressure [Standing (for 1 minute prior to obtaining)] Blood Pressure Mean 103 105 106 Blood Pressure Mean [Lying] Blood Pressure Mean [Sitting (for 1 minute prior to obtaining)] Blood Pressure Mean [Standing (for 1 minute prior to obtaining)] Pulse Ox 98 98 98 Oxygen Delivery Method Room Air 04/27/25 17:15 04/27/25 17:30 04/27/25 17:30 Temperature Temperature Source Pulse Rate 74 56 L Pulse Rate [Lying] Pulse Rate [Sitting (for 1 minute prior to obtaining)] Pulse Rate [Standing (for 1 minute prior to obtaining)] Respiratory Rate 14 9 L Blood Pressure 134/70 H 183/68 H 183/68 H Blood Pressure [Lying] Blood Pressure [Sitting (for 1 minute prior to obtaining)] Blood Pressure [Standing (for 1 minute prior to obtaining)] Blood Pressure Mean 88 101 101 Blood Pressure Mean [Lying] Blood Pressure Mean [Sitting (for 1 minute prior to obtaining)] Blood Pressure Mean [Standing (for 1 minute prior to obtaining)] Pulse Ox 97 Oxygen Delivery Method 04/27/25 17:30 04/27/25 17:46 04/27/25 18:00 Temperature Temperature Source Pulse Rate 65 70 Pulse Rate [Lying] Pulse Rate [Sitting (for 1 minute prior to obtaining)] Pulse Rate [Standing (for 1 minute prior to obtaining)] Respiratory Rate 13 20 H Blood Pressure 183/68 H 187/84 H Blood Pressure [Lying] Blood Pressure [Sitting (for 1 minute prior to obtaining)] Blood Pressure [Standing (for 1 minute prior to obtaining)] Blood Pressure Mean 101 112 Blood Pressure Mean [Lying] Blood Pressure Mean [Sitting (for 1 minute prior to obtaining)] Blood Pressure Mean [Standing (for 1 minute prior to obtaining)] Pulse Ox 94 95 Oxygen Delivery Method 04/27/25 18:15 04/27/25 18:36 04/27/25 18:45 Temperature Temperature Source Pulse Rate 63 77 63 Pulse Rate [Lying] Pulse Rate [Sitting (for 1 minute prior to obtaining)] Pulse Rate [Standing (for 1 minute prior to obtaining)] Respiratory Rate 11 L 19 H 11 L Blood Pressure 166/84 H Blood Pressure [Lying] Blood Pressure [Sitting (for 1 minute prior to obtaining)] Blood Pressure [Standing (for 1 minute prior to obtaining)] Blood Pressure Mean 106 Blood Pressure Mean [Lying] Blood Pressure Mean [Sitting (for 1 minute prior to obtaining)] Blood Pressure Mean [Standing (for 1 minute prior to obtaining)] Pulse Ox 96 98 98 Oxygen Delivery Method Room Air 04/27/25 19:00 Temperature Temperature Source Pulse Rate 60 Pulse Rate [Lying] Pulse Rate [Sitting (for 1 minute prior to obtaining)] Pulse Rate [Standing (for 1 minute prior to obtaining)] Respiratory Rate 10 L Blood Pressure 181/73 H Blood Pressure [Lying] Blood Pressure [Sitting (for 1 minute prior to obtaining)] Blood Pressure [Standing (for 1 minute prior to obtaining)] Blood Pressure Mean 106 Blood Pressure Mean [Lying] Blood Pressure Mean [Sitting (for 1 minute prior to obtaining)] Blood Pressure Mean [Standing (for 1 minute prior to obtaining)] Pulse Ox 97 Oxygen Delivery Method Room Air Weight Weight: 58.258 kg Body Mass Index (BMI) 20.7 Physical Exam Const alert, oriented x3, no apparent distress and average body habitus Constitutional Narrative: Elderly female, thin appearing, mildly fatigued appearing, otherwise sitting back comfortably in bed, conversing [...] palpation,non-tender and non-distended Back/Spine normal ROM Extremity normal to inspection, full ROM and no pedal edema Skin no rashes or lesions noted Psych mental status grossly normal Results Lab / Micro Data 04/27/25 15:29 04/27/25 15:29 Labs: Laboratory Results - last 24 hr 04/27/25 15:29: WBC 4.5, RBC 3.65 L, Hgb 11.4 L, Hct 34.4 L, MCV 94.2, MCH 31.2,MCHC 33.1, RDW Std Deviation 43.3, RDW Coeff of Gabriella 12.5, Plt Count 245, MPV 9.6, Immature Gran % (Auto) 0.200, Neut % (Auto) 49.1, Lymph % (Auto) 32.8, White% (Auto) 12.7 H, Eos % (Auto) 4.5, Baso % (Auto) 0.7, Absolute Neuts (auto) 2.2,Absolute Lymphs (auto) 1.47, Nucleated RBC % 0, Sodium 140, Potassium 4.3, Chloride 100, Carbon Dioxide 28.2, Anion Gap 12, BUN 44 H, Creatinine 1.78 H, Estim Creat Clear Calc 20.09 L, Est GFR (MDRD) Non-Af 27 L, BUN/Creatinine Ratio 24.7 H, Glucose 110 H, Calcium 10.1, Troponin T High Sens 89 H* D, NT pro BNP II614 04/27/25 17:34: Troponin T Hi Sens 2 Hr 84 H* Imaging Radiology Impression Chest X-Ray 04/27/25 15:16 IMPRESSION: No evidence of acute cardiopulmonary disease. Reading Location: [id number] Chest CTA 04/27/25 17:29 IMPRESSION: No pulmonary embolism. Left kidney indeterminate lesion. Further characterization with nonemergent ultrasound is recommended to determine if it is cystic. Chronic and ancillary findings as above. Reading Location: [place] [address] Assessment & Plan Assessment/Plan (1) BRIGHT (acute kidney injury): (2) Orthostatic hypotension: (3) Hypoxia: PLAN: Plan Patient is an 89-year-old female who presented [facility] ED on 04/27/2025 with dizziness and hypoxia. 1. BRIGHT on CKD stage IIIb with dehydration and orthostatic hypotension ? Admit under inpatient status to PCU. Creatinine 1.78, BUN 44 on admit. Baseline creatinine 1.1-1.2. Positive orthostatics in the ED with SBP drop [id number] to 130s from sitting to standing with associated lightheadedness. Suspect prerenal BRIGHT secondary to overdiuresis from home indapamide and dapagliflozin. Given 1 L fluid bolus in the ED and will give another 750 cc of IV fluid over several hours this evening. Hold home indapamide and dapagliflozin. 2. Acute hypoxia with exertion ? Oxygen saturation 95% on room air at rest but dropped to 85% on room air on exertion. Unclear etiology. CTA chest with no PE and clear lung bañuelos. Recent echo on 04/10 showed only mild pulmonary hypertension. Good breath soundsbilaterally on exam, no wheezing noted. Will repeat oxygen testing tomorrow morning. 3. Recent LLE DVT ? Ultrasound during hospitalization in late March showed acute DVT in the left gastrocnemius and posterior tibial veins. CTA chest negative for PE. Continue home Eliquis. 4. Chronic HFpEF, hypertension ? Follows with [facility] cardiology. Home regimen of clonidine patch weekly, dapagliflozin, indapamide, and labetalol. Echo on 04/10 showed EF 55%, stage I diastolic dysfunction, otherwise was unremarkable. Appears to be a strange medication regimen but patient does have several allergies listed to other bloodpressure medications. Holding indapamide and dapagliflozin as above. Will start nifedipine 60 mg daily and would consider making medication changes on discharge to avoid overdiuresis again. 5. Hypothyroidism ? Continue home Synthroid. DVT prophylaxis: Not indicated, on Eliquis CODE STATUS: Full code, verified Expected disposition: Home, TBD Total clinical time spent by myself addressing the patient's medical issues, reviewing all the data, and collaborating with patient's care team: 75 minutes. Charges/Coding Visit Charges Inpatient E&M: 14563 Init Hosp L3 04/27/25 2211 <Electronically signed by Adilson Melchor DO> Cosigner Signature (if applicable): CC: Dr. Adilson Melchor DO; Dr. Susannah Capellan MD~ Signed [facility] Work Phone: 1(339) 527-677407-11-2025 Discharge summary [facility] Medical Records Department [address] [place] [address] Emergency Department Summary 04/27/25 MR#: [id number] Acct: [id number] Name: ZENAIDA EVANS Rep #:[id number] : 1935 89 From: Keith Cronin MD PCP: Dr. Susannah Capellan MD Status:AD M IN Location: [address] History of Present Illness Chief Complaint: Dizziness Narrative Narrative: 89-year-old female with past medical history of HTN, HLD, CHF, left lower extremity DVT on Eliquis,hypothyroidism was sent in by her primary care office for low oxygen levels. She was admitted for an NSTEMI on 04/09/2025. Dr. Reyes heart cath which she said was negative. She had an ultrasound showing a left leg DVT and was started on Eliquis. Since she went home on Eliquis she reports feeling lightheaded with standing. She will have to hold onto the counter lowerher head for minute until it passes. She denies syncope, she denies room spinning. She states she is also felt short of breath when walking around her home or going upstairs since then. No chest pain since her admission. She followed up with her primary care office today and her pulse ox was 88% so they recommended she come to the. Her baseline weight is 130 pounds and she takesLasix if she is up 3 pounds but she has not needed to do this for a long time. She states she is actually lost weight and is around 125. [facility] Medical History CHF (congestive heart failure) Home Medications ?Medication ?Instructions ?Recorded ?Last Taken ?Type levothyroxine 88 mcg tablet 88 mcg PO DAILY thyroid 04/09/25 History labetalol 200 mg tablet 100 mg PO BID Blood pressure 10/16/19 04/09/25 History melatonin 5 mg capsule 5 mg PO QHS Sleep 10/16/19 0 04/09/25 History clonidine 0.1 mg/24 hr weekly 1 patch transdermal QWEE K 11/06/23 04/09/25 History transdermal patch Hypertension minoxidil 2.5 mg tablet 2.5 mg PO DAILY Hair 5 Unknown History nitroglycerin 0.4 mg sublingual 0.4 mg sublingual PRN Chest pain 04/09/25 Unknown History tablet biotin 5 mg capsule 5 mg PO DAILY Supplement Unknown History dapagliflozin propanediol 5 mg 5 mg PO DAILY Heart Rich lure 04/10/25 Unknown History tablet (Farxiga) ketoconazole 2 % shampoo 1 applic topical .2-3 times weekly 04/10/25 Unknown History Rash apixaban 5 mg tablet (Eliquis) 5 mg PO BID 30 days #60 tabs 04/11/25 Unknown Rx indapamide 2.5 mg tablet 2.5 mg PO DAILY 04/27/25 Unk nown History Allergy/AdvReac Type Severity Reaction Status Date / Time iron Allergy Unknown Verified 04/27/25 13:16 pentazocine (From Talwin) Allergy Other Verified 04/27/25 13:16 scopolamine Allergy Other Verified 04/27/25 13:16 amlodipine AdvReac Unknown Significant Verified 04/27/25 13:16 swelling ARB-Angiotensin Receptor AdvReac Unknown BRIGHT/ Verified 04/27/25 13:16 Antagonist Hyperkalemia atorvastatin (From Lipitor) AdvReac Unknown Myalgia Verified 04/27/25 13:16 empagliflozin (From AdvReac Unknown Diarrhea Verified 04/27/25 13:16 Jardiance) hydralazine AdvReac Unknown Intolerance/ Verified 04/27/25 13:16 Nausea hydrochlorothiazide (hctz) AdvReac Unknown Containdication/ Verified 04/27/25 13:16 Hyponatremia losartan AdvReac Unknown BRIGHT with Verified 04/27/25 13:16 elevated potassium and creatinine spironolactone AdvReac Unknown Caused BP Verified 04/27/25 13:16 to go up verapamil AdvReac Unknown GI Upset Verified 04/27/25 13:16 Family History no significant family his Social History Smoking Status: Former smoker EXAM Physical Exam Const Vital Signs: 04/27/25 13:15 04/27/25 15:15 04/27/25 15:16 Temperature 98 F Temperature Source Oral Pulse Rate 78 89 Pulse Rate [Lying] 64 Pulse Rate [Sitting (for 1 minute prior to obtaining)] 78 Pulse Rate [Standing (for 1 minute prior to obtaining)] 65 Respiratory Rate 16 14 Blood Pressure 147/72 H 139/66 H Blood Pressure [Lying] 186/76 H Blood Pressure [Sitting (for 1 minute prior to obtaining)] 173/78 H Blood Pressure [Standing (for 1 minute prior to obtaining)] 134/70 H Blood Pressure Mean 97 90 Blood Pressure Mean [Lying] 112 Blood Pressure Mean [Sitting (for 1 minute prior to obtaining)] 109 Blood Pressure Mean [Standing (for 1 minute prior to obtaining)] 91 Pulse Ox 95 98 Oxygen Delivery Method Room Air 04/27/25 17:05 04/27/25 17:11 04/27/25 17:12 Temperature Temperature Source Pulse Rate 56 L 58 L 57 L Pulse Rate [Lying] Pulse Rate [Sitting (for 1 minute prior to obtaining)] Pulse Rate [Standing (for 1 minute prior to obtaining)] Respiratory Rate 10 L 9 L 11 L Blood Pressure 180/73 H 186/76 H 173/78 H Blood Pressure [Lying] Blood Pressure [Sitting (for 1 minute prior to obtaining)] Blood Pressure [Standing (for 1 minute prior to obtaining)] Blood Pressure Mean 103 105 106 Blood Pressure Mean [Lying] Blood Pressure Mean [Sitting (for 1 minute prior to obtaining)] Blood Pressure Mean [Standing (for 1 minute prior to obtaining)] Pulse Ox 98 98 98 Oxygen Delivery Method Room Air 04/27/25 17:15 04/27/25 17:30 04/27/25 17:30 Temperature Temperature Source Pulse Rate 74 56 L Pulse Rate [Lying] Pulse Rate [Sitting (for 1 minute prior to obtaining)] Pulse Rate [Standing (for 1 minute prior to obtaining)] Respiratory Rate 14 9 L Blood Pressure 134/70 H 183/68 H 183/68 H Blood Pressure [Lying] Blood Pressure [Sitting (for 1 minute prior to obtaining)] Blood Pressure [Standing (for 1 minute prior to obtaining)] Blood Pressure Mean 88 101 101 Blood Pressure Mean [Lying] Blood Pressure Mean [Sitting (for 1 minute prior to obtaining)] Blood Pressure Mean [Standing (for 1 minute prior to obtaining)] Pulse Ox 97 Oxygen Delivery Method 04/27/25 17:30 04/27/25 17:46 04/27/25 18:00 Temperature Temperature Source Pulse Rate 65 70 Pulse Rate [Lying] Pulse Rate [Sitting (for 1 minute prior to obtaining)] Pulse Rate [Standing (for 1 minute prior to obtaining)] Respiratory Rate 13 20 H Blood Pressure 183/68 H 187/84 H Blood Pressure [Lying] Blood Pressure [Sitting (for 1 minute prior to obtaining)] Blood Pressure [Standing (for 1 minute prior to obtaining)] Blood Pressure Mean 101 112 Blood Pressure Mean [Lying] Blood Pressure Mean [Sitting (for 1 minute prior to obtaining)] Blood Pressure Mean [Standing (for 1 minute prior to obtaining)] Pulse Ox 94 95 Oxygen Delivery Method 04/27/25 18:15 04/27/25 18:36 04/27/25 18:45 Temperature Temperature Source Pulse Rate 63 77 63 Pulse Rate [Lying] Pulse Rate [Sitting (for 1 minute prior to obtaining)] Pulse Rate [Standing (for 1 minute prior to obtaining)] Respiratory Rate 11 L 19 H 11 L Blood Pressure 166/84 H Blood Pressure [Lying] Blood Pressure [Sitting (for 1 minute prior to obtaining)] Blood Pressure [Standing (for 1 minute prior to obtaining)] Blood Pressure Mean 106 Blood Pressure Mean [Lying] Blood Pressure Mean [Sitting (for 1 minute prior to obtaining)] Blood Pressure Mean [Standing (for 1 minute prior to obtaining)] Pulse Ox 96 98 98 Oxygen Delivery Method Room Air 04/27/25 19:00 04/27/25 19:41 Temperature 98 F Temperature Source Pulse Rate 60 63 Pulse Rate [Lying] Pulse Rate [Sitting (for 1 minute prior to obtaining)] Pulse Rate [Standing (for 1 minute prior to obtaining)] Respiratory Rate 10 L 18 Blood Pressure 181/73 H 181/73 H Blood Pressure [Lying] Blood Pressure [Sitting (for 1 minute prior to obtaining)] Blood Pressure [Standing (for 1 minute prior to obtaining)] Blood Pressure Mean 106 109 Blood Pressure Mean [Lying] Blood Pressure Mean [Sitting (for 1 minute prior to obtaining)] Blood Pressure Mean [Standing (for 1 minute prior to obtaining)] Pulse Ox 97 96 Oxygen Delivery Method Room Air Physical Exam Const Vital Signs: 04/27/25 13:15 04/27/25 15:15 04/27/25 15:16 Temperature 98 F Temperature Source Oral Pulse Rate 78 89 Pulse Rate [Lying] 64 Pulse Rate [Sitting (for 1 minute prior to obtaining)] 78 Pulse Rate [Standing (for 1 minute prior to obtaining)] 65 Respiratory Rate 16 14 Blood Pressure 147/72 H 139/66 H Blood Pressure [Lying] 186/76 H Blood Pressure [Sitting (for 1 minute prior to obtaining)] 173/78 H Blood Pressure [Standing (for 1 minute prior to obtaining)] 134/70 H Blood Pressure Mean 97 90 Blood Pressure Mean [Lying] 112 Blood Pressure Mean [Sitting (for 1 minute prior to obtaining)] 109 Blood Pressure Mean [Standing (for 1 minute prior to obtaining)] 91 Pulse Ox 95 98 Oxygen Delivery Method Room Air 04/27/25 17:05 04/27/25 17:11 04/27/25 17:12 Temperature Temperature Source Pulse Rate 56 L 58 L 57 L Pulse Rate [Lying] Pulse Rate [Sitting (for 1 minute prior to obtaining)] Pulse Rate [Standing (for 1 minute prior to obtaining)] Respiratory Rate 10 L 9 L 11 L Blood Pressure 180/73 H 186/76 H 173/78 H Blood Pressure [Lying] Blood Pressure [Sitting (for 1 minute prior to obtaining)] Blood Pressure [Standing (for 1 minute prior to obtaining)] Blood Pressure Mean 103 105 106 Blood Pressure Mean [Lying] Blood Pressure Mean [Sitting (for 1 minute prior to obtaining)] Blood Pressure Mean [Standing (for 1 minute prior to obtaining)] Pulse Ox 98 98 98 Oxygen Delivery Method Room Air 04/27/25 17:15 04/27/25 17:30 04/27/25 17:30 Temperature Temperature Source Pulse Rate 74 56 L Pulse Rate [Lying] Pulse Rate [Sitting (for 1 minute prior to obtaining)] Pulse Rate [Standing (for 1 minute prior to obtaining)] Respiratory Rate 14 9 L Blood Pressure 134/70 H 183/68 H 183/68 H Blood Pressure [Lying] Blood Pressure [Sitting (for 1 minute prior to obtaining)] Blood Pressure [Standing (for 1 minute prior to obtaining)] Blood Pressure Mean 88 101 101 Blood Pressure Mean [Lying] Blood Pressure Mean [Sitting (for 1 minute prior to obtaining)] Blood Pressure Mean [Standing (for 1 minute prior to obtaining)] Pulse Ox 97 Oxygen Delivery Method 04/27/25 17:30 04/27/25 17:46 04/27/25 18:00 Temperature Temperature Source Pulse Rate 65 70 Pulse Rate [Lying] Pulse Rate [Sitting (for 1 minute prior to obtaining)] Pulse Rate [Standing (for 1 minute prior to obtaining)] Respiratory Rate 13 20 H Blood Pressure 183/68 H 187/84 H Blood Pressure [Lying] Blood Pressure [Sitting (for 1 minute prior to obtaining)] Blood Pressure [Standing (for 1 minute prior to obtaining)] Blood Pressure Mean 101 112 Blood Pressure Mean [Lying] Blood Pressure Mean [Sitting (for 1 minute prior to obtaining)] Blood Pressure Mean [Standing (for 1 minute prior to obtaining)] Pulse Ox 94 95 Oxygen Delivery Method 04/27/25 18:15 04/27/25 18:36 04/27/25 18:45 Temperature Temperature Source Pulse Rate 63 77 63 Pulse Rate [Lying] Pulse Rate [Sitting (for 1 minute prior to obtaining)] Pulse Rate [Standing (for 1 minute prior to obtaining)] Respiratory Rate 11 L 19 H 11 L Blood Pressure 166/84 H Blood Pressure [Lying] Blood Pressure [Sitting (for 1 minute prior to obtaining)] Blood Pressure [Standing (for 1 minute prior to obtaining)] Blood Pressure Mean 106 Blood Pressure Mean [Lying] Blood Pressure Mean [Sitting (for 1 minute prior to obtaining)] Blood Pressure Mean [Standing (for 1 minute prior to obtaining)] Pulse Ox 96 98 98 Oxygen Delivery Method Room Air 04/27/25 19:00 04/27/25 19:41 Temperature 98 F Temperature Source Pulse Rate 60 63 Pulse Rate [Lying] Pulse Rate [Sitting (for 1 minute prior to obtaining)] Pulse Rate [Standing (for 1 minute prior to obtaining)] Respiratory Rate 10 L 18 Blood Pressure 181/73 H 181/73 H Blood Pressure [Lying] Blood Pressure [Sitting (for 1 minute prior to obtaining)] Blood Pressure [Standing (for 1 minute prior to obtaining)] Blood Pressure Mean 106 109 Blood Pressure Mean [Lying] Blood Pressure Mean [Sitting (for 1 minute prior to obtaining)] Blood Pressure Mean [Standing (for 1 minute prior to obtaining)] Pulse Ox 97 96 Oxygen Delivery Method Room Air MDM MDM MDM Narrative Medical decision making narrative: Differential includes but not limited to pneumonia, ACS, PE 89-year-old female presents with dyspnea on exertion and lightheadedness over the last 2 weeks. No chest pain. She is awake and alert in no distress. Vitalsigns are stable. She speaking full sentences without distress and is 95% or above on room air. Heart regular. Lungs clear. Abdomen soft and nontender. Overall exam is benign. Orthostatic vital signs were positive so she was given IV fluids. Hemoglobin of 11.4 is chronic. Electrolytes are normal. Renal function is elevated at BUN 44, creatinine 1.78. Previously creatinine was 1.19. This is being treated with IV fluids. EKG is normal sinus rhythm withoutischemic changes. Serial troponins are 89 and 84; this is similar to her admission 2 and half weeks ago for an NSTEMI. At that time her cardiac catheterization showed no significant coronary artery disease and they recommended medical management. She does not have chest pain currently and I amnot sure why they have not trended down more. CXR is negative. She was 95% on room air but dropped to 85% with ambulation so although she is on Eliquis for DVT, CTA was ordered to rule out anticoagulation failure and a PE. CTA shows nopulmonary embolism and no acute findings. There is a incidental left kidney lesion which we will outpatient follow-up. Since she has ambulatory hypoxia [facility] admission. I discussed the case with the hospitalist. External records reviewed 04/09/2025 cardiac Catheterization Nonobstructive coronary arteries, EF 65% I have personally performed a face to face assessment of the patient and have reviewed the RONNIE Note. I performed a substantive portion of the visit including all aspects of the following. My carrasquillo findings include: History is remarkable for patient presenting from physicians office. She informing that she had to sign a piece of paper since that she did not want ambulance transport. Her doctors nurse practitioner Eve, contacted the emergency department. She was concerned about congestive heart failure pulmonary embolus. Patient is describing dizziness which is described as problems with balance last seconds when she changes position from supine or sitting to standing. She denies double vision, blurredvision loss of vision. Denies being her ears decreased hearing. Denies trouble with speech or swallowing. She denies orthopnea or PND. She denies chest discomfort of any type. She denies black or maroon-colored stool. She denies paresthesia, anesthesia or motor weakness. Initially patient was flustered and stated she needed a CAT scan. She also was unable to tell me what she meant by dizziness. After asking if it meant the room spinning versus her spinning versus lightheaded her response was "I am confused. I really do not have a good answer. "After reasking the question it was determined that patient has problem with her balance when she goes from a supine or sitting position to a standing position. This last seconds. Exam is unremarkable. She is a pleasant elderly woman. She is in no distress. Her blood pressure isslightly elevated. Head is atraumatic normocephalic. There is no abnormality of the TMs and the external auditory canals are not occluded. Nares patent. Uvula midline. No deviation tongue or protrusion. Neck is supple. There is no carotid bruits. There is no dysmetria. Heel arreola to heel is normal. Motor sensory are intact. Cranials 2 through 12 are intact. Alert and oriented x 3. Medical Decision Making in my opinion patient has paroxysmal benign positional vertigo. Because there was confusion and what she was told by the nurse practitioner slightly larger workup was undertaken that I normally would have ordered. Other additions or changes: [None] Lab Data Labs: Laboratory Results - last 24 hr 04/27/25 04/27/25 15:29 17:34 WBC 4.5 RBC 3.65 L Hgb 11.4 L Hct 34.4 L MCV 94.2 MCH 31.2 MCHC 33.1 RDW Std Deviation 43.3 RDW Coeff of Gabriella 12.5 Plt Count 245 MPV 9.6 Immature Gran % (Auto) 0.200 Neut % (Auto) 49.1 Lymph % (Auto) 32.8 White % (Auto) 12.7 H Eos % (Auto) 4.5 Baso % (Auto) 0.7 Absolute Neuts (auto) 2.2 Absolute Lymphs (auto) 1.47 Nucleated RBC % 0 Sodium 140 Potassium 4.3 Chloride 100 Carbon Dioxide 28.2 Anion Gap 12 BUN 44 H Creatinine 1.78 H Estim Creat Clear Calc 20.09 L Est GFR (MDRD) Non-Af 27 L BUN/Creatinine Ratio 24.7 H Glucose 110 H Calcium 10.1 Troponin T High Sens 89 H* D Troponin T Hi Sens 2 Hr 84 H* NT pro BNP II 614 Radiography Diagnostic Testing: Clinical Impression(s) from Imaging Studies Chest X-Ray 04/27/25 15:16 IMPRESSION: No evidence of acute cardiopulmonary disease. Reading Location: [id number] Chest CTA 04/27/25 17:29 IMPRESSION: No pulmonary embolism. Left kidney indeterminate lesion. Further characterization with nonemergent ultrasound is recommended to determine if it is cystic. Chronic and ancillary findings as above. Reading Location: [id number] ED attending interpretation of 2 view chest x-ray shows normal heart size, no acute infiltrate, edema, or effusion. MDM MDM Narrative Medical decision making narrative: Differential includes but not limited to pneumonia, ACS, PE 89-year-old female presents with dyspnea on exertion and lightheadedness over the last 2 weeks. No chest pain. She is awake and alert in no distress. Vital signs are stable. She speaking full sentences without distress and is 95% or above on room air. Heart regular. Lungs clear. Abdomen soft and nontender. Overall exam is benign. Orthostatic vital signs were positive so she was given IV fluids. Hemoglobin of 11.4 is chronic. Electrolytes are normal. Renal function is elevated at BUN 44, creatinine 1.78. Previously creatinine was 1.19. This is being treated with IV fluids. EKG is normal sinus rhythm without ischemic changes. Serial troponins are 89 and 84; this is similar to her admission 2 and half weeks ago for an NSTEMI. At that time her cardiac catheterization showed no significant coronary artery disease and they recommended medical management. She does not have chest pain currentlyand I am not sure why they have not trended down more. CXR is negative. She was 95% on room air butdropped to 85% with ambulation so although she is on Eliquis for DVT, CTA was ordered to rule out anticoagulation failure and a PE. CTA shows no pulmonary embolism and no acute findings. There is a incidental left kidney lesion which we will outpatient follow-up. Since she has ambulatory hypoxia she requires admission. I discussed the case with the hospitalist. External records reviewed 04/09/2025 cardiac Catheterization Nonobstructive coronary arteries, EF 65% I have personally performed a face to face assessment of the patient and have reviewed the RONNIE Note. I performed a substantive portion of the visit including all aspects of the following. My carrasquillo findings include: History is remarkable for patient presenting from physicians office. She informing that she had to sign a piece of paper since that she did not want ambulance transport. Her doctors nurse practitioner Eve, contacted the emergency department. She was concerned about congestive heart failure pulmonary embolus. Patient is describing dizziness which is described as problems with balance last seconds when she changes position from supine or sitting to standing. She denies double vision, blurredvision loss of vision. Denies being her ears decreased hearing. Denies trouble with speech or swallowing. She denies orthopnea or PND. She denies chest discomfort of any type. She denies black or maroon-colored stool. She denies paresthesia, anesthesia or motor weakness. Initially patient was flustered and stated she needed a CAT scan. She also was unable to tell me what she meant by dizziness. After asking if it meant the room spinning versus her spinning versus lightheaded her response was "I am confused. I really do not have a good answer. "After reasking the question it was determined that patient has problem with her balance when she goes from a supine or sitting position to a standing position. This last seconds. Exam is unremarkable. She is a pleasant elderly woman. She is in no distress. Her blood pressure isslightly elevated. Head is atraumatic normocephalic. There is no abnormality of the TMs and the external auditory canals are not occluded. Nares patent. Uvula midline. No deviation tongue or protrusion. Neck is supple. There is no carotid bruits. There is no dysmetria. Heel arreola to heel is normal. Motor sensory are intact. Cranials 2 through 12 are intact. Alert and oriented x 3. Medical Decision Making in my opinion patient has paroxysmal benign positional vertigo. Because there was confusion and what she was told by the nurse practitioner slightly larger workup was undertaken that I normally would have ordered. Other additions or changes: Patient desaturated with ambulation. With unremarkable chest x-ray history of PE even though she is anticoagulant CT of the chest was obtained. CT of the chest reveals no abnormality. She also was orthostatic after fluid boluses. Hospitalist was paged for admission Lab Data Attestation: I reviewed the patient's lab results. Lab results narrative: CBC is remarkable for H&H of 11.4 and 34.4 with normal indices. Electrolyte panel was an elevated BUN/creatinine of 44 and 1.78. BUN/creatinine ratio was approximate 25-1. First troponin is elevated 89. This may be on the way down. BNP was normal. Labs: Laboratory Results - last 24 hr 04/27/25 04/27/25 15:29 17:34 WBC 4.5 RBC 3.65 L Hgb 11.4 L Hct 34.4 L MCV 94.2 MCH 31.2 MCHC 33.1 RDW Std Deviation 43.3 RDW Coeff of Gabriella 12.5 Plt Count 245 MPV 9.6 Immature Gran % (Auto) 0.200 Neut % (Auto) 49.1 Lymph % (Auto) 32.8 White % (Auto) 12.7 H Eos % (Auto) 4.5 Baso % (Auto) 0.7 Absolute Neuts (auto) 2.2 Absolute Lymphs (auto) 1.47 Nucleated RBC % 0 Sodium 140 Potassium 4.3 Chloride 100 Carbon Dioxide 28.2 Anion Gap 12 BUN 44 H Creatinine 1.78 H Estim Creat Clear Calc 20.09 L Est GFR (MDRD) Non-Af 27 L BUN/Creatinine Ratio 24.7 H Glucose 110 H Calcium 10.1 Troponin T High Sens 89 H* D Troponin T Hi Sens 2 Hr 84 H* NT pro BNP II 614 Radiography Diagnostic Testing: Clinical Impression(s) from Imaging Studies Chest X-Ray 04/27/25 15:16 IMPRESSION: No evidence of acute cardiopulmonary disease. Reading Location: [facility] Chest CTA 04/27/25 17:29 IMPRESSION: No pulmonary embolism. Left kidney indeterminate lesion. Further characterization with nonemergent ultrasound is recommended to determine if it is cystic. Chronic and ancillary findings as above. Reading Location: [id number] Discharge Plan Dx/Rx/DC Orders Clinical Impression: Hypoxia, Orthostatic hypotension, Elevated troponin, History of non-ST elevation myocardial infarction (NSTEMI), History of deep vein thrombosis (DVT) of lower extremity Disposition Disposition: Acute Care Hospital [facility] Discharge Date/Time: 04/27/25 21:02 What to do if you have Problems For any increased pain, shortness of breath, bleeding, nausea or vomiting, chest pain, or any unexpected problems, contact your Primary Care Provider. Call [facility] ([phone]) or report to the closest Emergency Room. Call 911 if necessary. 04/27/252222 Cosigner Signature (if applicable): 04/27/251951 CC: Dr. Susannah Capellan MD ~ Signed [facility]07-11-2025 History and physical note [facility] Medical Records Department [address] [place] [address] H&P Exam - Hospitalist 04/27/251935 MR#: [id number] Acct: [id number] Name: ZENAIDA EVANS Rep #:[id number] : 1935 89 From: Adilson wu DO PCP: Dr. Susannah Capellan MD Status:AD M IN Location: [place] [id number] HPI - General General Date of Admission: 04/27/25 Date of Service: 04/27/25 Chief Complaint: Dizziness and hypoxia HPI Narrative ZENAIDA EVANS, is a 89 F who presented to [facility] ED on 04/27/2025 with dizzinessand hypoxia. Patient was recently hospitalized here from 04/09-04/11 for an NSTEMI. Medical history significant for HFpEF, hypertension, CKD stage IIIb and hypothyroidism. Follows with [facility] cardiology. Left heart cath showed only mild disease in circumflex and RCA and moderate disease up to 50% in theLAD. Echo showed EF 60%, stage I diastolic dysfunction, no other concerning findings. Lower extremity ultrasound did show an acute DVT in the left gastroc and posterior tibial veins, but CTA chest showed no PE. Patient was discharged home on Eliquis 5 mg twice daily at that time; decision was made to not give loading dose given small DVT to minimize risk of bleeding. Patient notes that since returning home she has had intermittent lightheadedness and dizziness with standing. Denies any syncopalevents. She is also felt some shortness of breath when walking around the home. She saw her PCP today and her pulse ox was 88%, so they recommended she come infor further evaluation. In the ED she was hypertensive to the 180s systolic andoxygen saturation was 95% on room air but dropped to 85% withexertion. CBC wasbenign. BMP showed creatinine 1.78 (baseline around 1.1-1.2), BUN 44. Troponintrend 89 > 84 but these were stable from prior values. NT proBNP normal at 614. CTA chest showed no PE, stable small pulmonary nodules and otherwise clear lungfields. Orthostatic vitals were obtained and were positive, with SBP drop from 173 sitting to 134 standing. Given her BRIGHT with orthostatic hypotension and hypoxia with exertion, hospitalist was contacted for admission. I saw the patient at bedside in the ED. She was sitting back comfortably in bed, conversing normally, in no acute distress.She denied any lightheadedness or dizziness at rest. Denied any chest pain or shortness of breath. Noted that she has been taking her home medications as prescribed and her urine output has been slightly decreased over the past few days. She does report drinking lots of fluids recently. She denies any other acute concerns currently. Will be admitted for further management. [facility] Medical History CHF (congestive heart failure) Home Medications ?Medication ?Instructions ?Recorded ?Last Taken ?Type levothyroxine 88 mcg tablet 88 mcg PO DAILY thyroid 04/09/25 History labetalol 200 mg tablet 100 mg PO BID Blood pressure 10/16/19 04/09/25 History melatonin 5 mg capsule 5 mg PO QHS Sleep 10/16/19 0 04/09/25 History clonidine 0.1 mg/24 hr weekly 1 patch transdermal QWEE K 11/06/23 04/09/25 History transdermal patch Hypertension minoxidil 2.5 mg tablet 2.5 mg PO DAILY Hair 5 Unknown History nitroglycerin 0.4 mg sublingual 0.4 mg sublingual PRN Chest pain 04/09/25 Unknown History tablet biotin 5 mg capsule 5 mg PO DAILY Supplement Unknown History dapagliflozin propanediol 5 mg 5 mg PO DAILY Heart Rich lure 04/10/25 Unknown History tablet (Farxiga) ketoconazole 2 % shampoo 1 applic topical .2-3 times weekly 04/10/25 Unknown History Rash apixaban 5 mg tablet (Eliquis) 5 mg PO BID 30 days #60 tabs 04/11/25 Unknown Rx indapamide 2.5 mg tablet 2.5 mg PO DAILY 04/27/25 Unk nown History Allergy/AdvReac Type Severity Reaction Status Date / Time iron Allergy Unknown Verified 04/27/25 13:16 pentazocine (From Talwin) Allergy Other Verified 04/27/25 13:16 scopolamine Allergy Other Verified 04/27/25 13:16 amlodipine AdvReac Unknown Significant Verified 04/27/25 13:16 swelling ARB-Angiotensin Receptor AdvReac Unknown BRIGHT/ Verified 04/27/25 13:16 Antagonist Hyperkalemia atorvastatin (From Lipitor) AdvReac Unknown Myalgia Verified 04/27/25 13:16 empagliflozin (From AdvReac Unknown Diarrhea Verified 04/27/25 13:16 Jardiance) hydralazine AdvReac Unknown Intolerance/ Verified 04/27/25 13:16 Nausea hydrochlorothiazide (hctz) AdvReac Unknown Containdication/ Verified 04/27/25 13:16 Hyponatremia losartan AdvReac Unknown BRIGHT with Verified 04/27/25 13:16 elevated potassium and creatinine spironolactone AdvReac Unknown Caused BP Verified 04/27/25 13:16 to go up verapamil AdvReac Unknown GI Upset Verified 04/27/25 13:16 Family History no significant family his Social History Smoking Status: Former smoker ROS Constitutional Constitutional: Denies chills, fatigue, fever(s) or weakness Eyes Eyes: Denies change in vision Cardiovascular Cardiovascular: Denies chest pain Respiratory/Chest Respiratory/Chest: Denies shortness of breath at rest Gastrointestinal Gastrointestinal: Denies abdominal pain Neurologic Neurologic: Reports dizziness; Denies focal weakness, headache(s), numbness or tingling Vital Signs Vital Signs Vital Signs: 04/27/25 13:15 04/27/25 15:15 04/27/25 15:16 Temperature 98 F Temperature Source Oral Pulse Rate 78 89 Pulse Rate [Lying] 64 Pulse Rate [Sitting (for 1 minute prior to obtaining)] 78 Pulse Rate [Standing (for 1 minute prior to obtaining)] 65 Respiratory Rate 16 14 Blood Pressure 147/72 H 139/66 H Blood Pressure [Lying] 186/76 H Blood Pressure [Sitting (for 1 minute prior to obtaining)] 173/78 H Blood Pressure [Standing (for 1 minute prior to obtaining)] 134/70 H Blood Pressure Mean 97 90 Blood Pressure Mean [Lying] 112 Blood Pressure Mean [Sitting (for 1 minute prior to obtaining)] 109 Blood Pressure Mean [Standing (for 1 minute prior to obtaining)] 91 Pulse Ox 95 98 Oxygen Delivery Method Room Air 04/27/25 17:05 04/27/25 17:11 04/27/25 17:12 Temperature Temperature Source Pulse Rate 56 L 58 L 57 L Pulse Rate [Lying] Pulse Rate [Sitting (for 1 minute prior to obtaining)] Pulse Rate [Standing (for 1 minute prior to obtaining)] Respiratory Rate 10 L 9 L 11 L Blood Pressure 180/73 H 186/76 H 173/78 H Blood Pressure [Lying] Blood Pressure [Sitting (for 1 minute prior to obtaining)] Blood Pressure [Standing (for 1 minute prior to obtaining)] Blood Pressure Mean 103 105 106 Blood Pressure Mean [Lying] Blood Pressure Mean [Sitting (for 1 minute prior to obtaining)] Blood Pressure Mean [Standing (for 1 minute prior to obtaining)] Pulse Ox 98 98 98 Oxygen Delivery Method Room Air 04/27/25 17:15 04/27/25 17:30 04/27/25 17:30 Temperature Temperature Source Pulse Rate 74 56 L Pulse Rate [Lying] Pulse Rate [Sitting (for 1 minute prior to obtaining)] Pulse Rate [Standing (for 1 minute prior to obtaining)] Respiratory Rate 14 9 L Blood Pressure 134/70 H 183/68 H 183/68 H Blood Pressure [Lying] Blood Pressure [Sitting (for 1 minute prior to obtaining)] Blood Pressure [Standing (for 1 minute prior to obtaining)] Blood Pressure Mean 88 101 101 Blood Pressure Mean [Lying] Blood Pressure Mean [Sitting (for 1 minute prior to obtaining)] Blood Pressure Mean [Standing (for 1 minute prior to obtaining)] Pulse Ox 97 Oxygen Delivery Method 04/27/25 17:30 04/27/25 17:46 04/27/25 18:00 Temperature Temperature Source Pulse Rate 65 70 Pulse Rate [Lying] Pulse Rate [Sitting (for 1 minute prior to obtaining)] Pulse Rate [Standing (for 1 minute prior to obtaining)] Respiratory Rate 13 20 H Blood Pressure 183/68 H 187/84 H Blood Pressure [Lying] Blood Pressure [Sitting (for 1 minute prior to obtaining)] Blood Pressure [Standing (for 1 minute prior to obtaining)] Blood Pressure Mean 101 112 Blood Pressure Mean [Lying] Blood Pressure Mean [Sitting (for 1 minute prior to obtaining)] Blood Pressure Mean [Standing (for 1 minute prior to obtaining)] Pulse Ox 94 95 Oxygen Delivery Method 04/27/25 18:15 04/27/25 18:36 04/27/25 18:45 Temperature Temperature Source Pulse Rate 63 77 63 Pulse Rate [Lying] Pulse Rate [Sitting (for 1 minute prior to obtaining)] Pulse Rate [Standing (for 1 minute prior to obtaining)] Respiratory Rate 11 L 19 H 11 L Blood Pressure 166/84 H Blood Pressure [Lying] Blood Pressure [Sitting (for 1 minute prior to obtaining)] Blood Pressure [Standing (for 1 minute prior to obtaining)] Blood Pressure Mean 106 Blood Pressure Mean [Lying] Blood Pressure Mean [Sitting (for 1 minute prior to obtaining)] Blood Pressure Mean [Standing (for 1 minute prior to obtaining)] Pulse Ox 96 98 98 Oxygen Delivery Method Room Air 04/27/25 19:00 Temperature Temperature Source Pulse Rate 60 Pulse Rate [Lying] Pulse Rate [Sitting (for 1 minute prior to obtaining)] Pulse Rate [Standing (for 1 minute prior to obtaining)] Respiratory Rate 10 L Blood Pressure 181/73 H Blood Pressure [Lying] Blood Pressure [Sitting (for 1 minute prior to obtaining)] Blood Pressure [Standing (for 1 minute prior to obtaining)] Blood Pressure Mean 106 Blood Pressure Mean [Lying] Blood Pressure Mean [Sitting (for 1 minute prior to obtaining)] Blood Pressure Mean [Standing (for 1 minute prior to obtaining)] Pulse Ox 97 Oxygen Delivery Method Room Air Weight Weight: 58.258 kg Body Mass Index (BMI) 20.7 Physical Exam Const alert, oriented x3, no apparent distress and average body habitus Constitutional Narrative: Elderly female, thin appearing, mildly fatigued appearing, otherwise sitting back comfortably in bed, conversing [...] palpation,non-tender and non-distended Back/Spine normal ROM Extremity normal to inspection, full ROM and no pedal edema Skin no rashes or lesions noted Psych mental status grossly normal Results Lab / Micro Data 04/27/25 15:29 04/27/25 15:29 Labs: Laboratory Results - last 24 hr 04/27/25 15:29: WBC 4.5, RBC 3.65 L, Hgb 11.4 L, Hct 34.4 L, MCV 94.2, MCH 31.2,MCHC 33.1, RDW Std Deviation 43.3, RDW Coeff of Gabriella 12.5, Plt Count 245, MPV 9.6, Immature Gran % (Auto) 0.200, Neut % (Auto) 49.1, Lymph % (Auto) 32.8, White% (Auto) 12.7 H, Eos % (Auto) 4.5, Baso % (Auto) 0.7, AbsoluteNeuts (auto) 2.2,Absolute Lymphs (auto) 1.47, Nucleated RBC % 0, Sodium 140, Potassium 4.3, Chloride 100, Carbon Dioxide 28.2, Anion Gap 12, BUN 44 H, Creatinine 1.78 H, Estim Creat Clear Calc 20.09 L, Est GFR (MDRD) Non-Af 27 L, BUN/Creatinine Ratio 24.7 H, Glucose 110 H, Calcium 10.1, Troponin T High Sens 89 H* D, NT pro BNP II614 04/27/25 17:34: Troponin T Hi Sens 2 Hr 84 H* Imaging Radiology Impression Chest X-Ray 04/27/25 15:16 IMPRESSION: No evidence of acute cardiopulmonary disease. Reading Location: [facility] Chest CTA 04/27/25 17:29 IMPRESSION: No pulmonary embolism. Left kidney indeterminate lesion. Further characterization with nonemergent ultrasound is recommended to determine if it is cystic. Chronic and ancillary findings as above. Reading Location: [id number] Assessment & Plan Assessment/Plan (1) BRIGHT (acute kidney injury): (2) Orthostatic hypotension: (3) Hypoxia: PLAN: Plan Patient is an 89-year-old female who presented [facility] ED on 04/27/2025 with dizziness and hypoxia. 1. BRIGHT on CKD stage IIIb with dehydration and orthostatic hypotension ? Admit under inpatient status to PCU. Creatinine 1.78, BUN 44 on admit. Baseline creatinine 1.1-1.2. Positive orthostatics in the ED with SBP drop [id number] to 130s from sitting to standing with associated lightheadedness. Suspect prerenal BRIGHT secondary to overdiuresis from home indapamide and dapag liflozin. Given 1 L fluid bolus in the ED and will give another 750 cc of IV fluid over several hours this evening. Hold home indapamide and dapagliflozin. 2. Acute hypoxia with exertion ? Oxygen saturation 95% on room air at rest but dropped to 85% on room air on exertion. Unclear etiology. CTA chest with no PE and clear lung bañuelos. Recent echo on 04/10 showed only mild pulmonary hypertension. Good breath soundsbilaterally on exam, no wheezing noted. Will repeat oxygen testing michelle rrow morning. 3. Recent LLE DVT ? Ultrasound during hospitalization in late March showed acute DVT in the left gastrocnemius and posterior tibial veins. CTA chest negative for PE. Continue home Eliquis. 4. Chronic HFpEF, hypertension ? Follows with [facility] cardiology. Home regimen of clonidine patch weekly, dapagliflozin, indapamide, and labetalol. Echo on 04/10 showed EF 55%, stage I diastolic dysfunction, otherwise was unremarkable.Appears to be a strange medication regimen but patient does have several allergies listed to other b loodpressure medications. Holding indapamide and dapagliflozin as above. Will start nifedipine 60 mg daily and would consider making medication changes on discharge to avoid overdiuresis again. 5. Hypothyroidism ? Continue home Synthroid. DVT prophylaxis: Not indicated, on Eliquis CODE STATUS: Full code, verified Expected disposition: Home, TBD Total clinical time spent by myself addressing the patient's medical issues, reviewing all the data, and collaborating with patient's care team: 75 minutes. Charges/Coding Visit Charges Inpatient E&M: 60138 Init Hosp L3 04/27/25 9057 Cosigner Signature (if applicable): CC: Dr. Adilson Melchor DO; Dr. Susannah Capellan MD~ Signed [facility]07-11-2025 Radiology Diagnostic study note [facility] Imaging Services [address] [place], [place] [id number] CTA Chest W/WO Contrast MR#: [id number] Acct: [id number] Name: ZENAIDA EVANS Rep #: [id number] : 1935 F 89 From: Micah Landis MD PCP: Dr. Susannah Capellan MD Status: RE G ER Study:CTA Chest W/WO Contrast Date of Exam: 04/27/25 Exam# [id number] Ordering Dr: Valeria Cronin MD PROCEDURE: CTA CHEST W/WO CONTRAST 04/27/2025 REASON FOR EXAM: HYPOXIA WITH AMBULATION, HISTORY OF PE TECHNIQUE: CTA CHEST W/WO CONTRAST Multiplanar Sagittal and Coronal images were obtained. CONTRAST: Isovue 370 VOLUME: 75 mL One or more dose reduction techniques were used (e.g., Automated exposure control, adjustment of the mA and/or kV according to patient size, use of iterative reconstruction technique). RADIATION DOSE SUMMARY: CTDlvol: 4.49+ 3.28 mGy DLP: 115.57 mGycm COMPARISON: 04/11/2025. FINDINGS: The peripheral soft tissues are unremarkable. Degenerative changes of the spine. Normal thyroid. Normal caliber esophagus. Partially visualized left kidney indeterminate lesion. Mild atherosclerosis of a normal caliber thoracic aorta. No mediastinal lymphadenopathy. The heart is normal in size. No pulmonary artery filling defects. Stable sub 6 mm pulmonary nodules. Micronodular opacities within the right middle lobe which are unchanged and likely chronic. CT/CTA Chest W/WO Contrast IMPRESSION: No pulmonary embolism. Left kidney indeterminate lesion. Further characterization with nonemergent ultrasound is recommended to determine if it is cystic. Chronic and ancillary findings as above. Reading Location: [id number] CC: Dr. Susannah Capellan MD; Dr. Keith Cronin MD ~ Senior Advocate: Signed [facility]07-11-2025 Radiology Diagnostic study note [facility] Imaging Services [address] [place] [address] Chest PA and Lateral MR#: [id number] Acct: [id number] Name: ZENAIDA EVANS Rep #: [id number] : 1935 F 89 From: Praneeth Nzaario MD PCP: Dr. Susannah Capellan MD Status: RE G ER Study:Chest PA and Lateral Date of Exam: 04/27/25 Exam# [id number] Ordering Dr: Agustín eBebe PROCEDURE: CHEST PA AND LATERAL 04/27/2025 REASON FOR EXAM: DYSPNEA TECHNIQUE: CHEST PA AND LATERAL COMPARISON: 04/09/2025 FINDINGS: Lungs/Pleura: No focal consolidation, pneumothorax, or significant pleural effusion. Findings suggestive of COPD/emphysema. No vascular congestion. Heart/Mediastinum: Within normal limits. Bones/Soft tissues: Calcified nodular density with surgical clips in the right breast soft tissues projecting over the right lower lung zone. Degenerative changes of the spine. Qualitative osteopenia. RAD/Chest PA and Lateral IMPRESSION: No evidence of acute cardiopulmonary disease. Reading Location: [id number] CC: Dr. Susannah Capellan MD; JOHNNA Witt ~ Senior Advocate: Signed [facility]07-11-2025 NoteHNO ID: [id number] Author: EVE DANIEL PA-C Service: ? Author Type: Physician Route Contractor Type: Progress Notes Filed: 04/27/2025 14:20 Note Text: CC: Zenaida Evans is an 89-year-old female with a history of heart failure, presenting for follow-up after a recent hospitalization for an NSTEM, with ongoing symptoms of dizziness, lightheadedness, and dyspnea. The patient consented to the use of [employer] software for draft documentation of the visit consistent with [facility]'s Notice of Privacy Practices. HPI: Dizziness [...] Hospitalization: - Hospitalized for a suspected mild MA approximately a month ago. - Cardiac catheterization revealed no blockages - Underwent a CT scan of the chest to rule out a pulmonary embolism; results were negative. Follow-Up with Dr. Hannon: - Last seen by Dr. Capellan on April 17; next virtual follow-up scheduled for May 14. - Dr. Capellan noted symptoms of nausea and dizziness, potentially related to Eliquis. - Recommended reassessment after one month with repeat ultrasound and D-dimer. - Dr. Capellan ordered an MRI for a pancreatic cyst, which Zenaida postponed due to feeling unwell. ROS: As noted above in HPI Physical Exam: BP 119/64 Pulse 71 Temp 36.8 ?C (98.3 ?F) (Oral) Wt 58.3 kg (128 lb 8.5 oz) SpO2 91% BMI 20.43 kg/m? Physical Exam Vitals reviewed. Constitutional: General: She [...] - I discussed with patient's PCP, Dr. Capellan. Recommended immediate evaluation in the emergency room for CT chest to rule out pulmonary embolism. - Recommend evaluation at the [place] [facility]. She states she has arranged transportation and her ride would not be able to wait. She states she will go to [facility]. I did call down there and gave report to a physician at 11:25 AM with my concerns. I did have her sign an AMA form and she verbalizes understanding the risks of , disability,worsening of condition and that she may return to our office or ER, or well puller head and call 911 at any time The [...] inhibited by chemical, medical, or physical limitations. (more content not included)...[facility]07-11-2025 History of Present illness Narrative* Eve Daniel PA-C - 04/27/2025 2:11 PM EDT CC: Zenaida Evans is an 89-year-old female with a history of heart failure, presenting for follow-up after a recent hospitalization for an NSTEM, with ongoing symptoms of dizziness, lightheadedness, and dyspnea. The patient consented to the use of ambient [employer] software for draft documentation of the visit consistent with [facility]'s Notice of Privacy Practices. HPI: Dizziness [...] Hospitalization: - Hospitalized for a suspected mild MA approximately a month ago. - Cardiac catheterization revealed no blockages - Underwent a CT scan of the chest to rule out a pulmonary embolism; results were negative. Follow-Up with Dr. Hannon: - Last seen by Dr. Capellan on April 17; next virtual follow-up scheduled for May 14. - Dr. Capellan noted symptoms of nausea and dizziness, potentially related to Eliquis. - Recommended reassessment after one month with repeat ultrasound and D-dimer. - Dr. Capellan ordered an MRI for a pancreatic cyst, [...] - I discussed with patient's PCP, Dr. Capellan. Recommended immediate evaluation in the emergency roomfor CT chest to rule out pulmonary embolism. - Recommend evaluation at the [facility]. She states she has arranged transportation and her ridewould not be able to wait. She states she will go to [facility]. I did call down there and gave report to a physician at 11:25 AM with my concerns. I did have her sign an AMA form andshe verbalizes understanding the risks of , disability,worsening of condition and that she mayreturn to our office or ER, or well puller head and call 911 at any time The patient has shown capacity for decision making by expressing the choice to leave, understandingthe treatment options and plan being offered, and [...] repercussion. Recommend follow up after hospital visit. Eve Daniel PA-C documented in this encounterSt[facility] Telephone encounter Note * Telephone Encounter - Nancie Zurita RN - 04/27/2025 1:50 PM EDT Call from pt stating that she is in [facility] but they are not "sure what to do". Communicated with PCP and was advised that PCP has concerns that oxygen at PCP visit "today was 88-89% and pt has a DVT, Is concerned about a PE". Since pt could not go to ED in [place] due to transportation issues, pt had to sign a form that she was leaving [facility] against medical advice after visit today. Spoke to [facility] desk personnel and advised of concerns. The rooms are full now but physician isto be notified of concerns. Pt advised to stay until can be seen. Pt is agreeable. [facility] Work Phone: [phone] Miscellaneous Notes* Telephone Encounter - Nancie Zurita RN - 04/27/2025 1:50 PM EDT Call from pt stating that she is in [facility] but they are not "sure what to do". Communicated with PCP and was advised that PCP has concerns that oxygen at PCP visit "today was 88-89% and pt has a DVT, Is concerned about a PE". Since pt could not go to ED in [place] due to transportation issues, pt had to sign a form that she was leaving [facility] against medical advice after visit today. Spoke to [facility] desk personnel and advised of concerns. The rooms are full now but physician isto be notified of concerns. Pt advised to stay until can be seen. Pt is agreeable. documented in this encounterSt. [facility]07-[facility]25 Telephone encounter Note * Telephone Encounter - Tara Orona MA - 04/17/2025 5:52 PM EDT Faxed order to Cardia Rehab at [facility] at [phone] Left detailed message on patient's voicemail. [facility]07-01-2025 Miscellaneous Notes* Telephone Encounter - Tara Orona MA - 04/17/2025 5:52 PM EDT Faxed order to [facility]hab at [facility] at [phone] Left detailed message on patient's voicemail. * Telephone Encounter - Susannah Capellan MD - 04/17/2025 4:59 PM EDT Recommend referral to cardiac rehab at [facility]. Please call [phone] Referral in my outbox. Please inform patient once they have referral. documented in this encounterSt. [facility]07-[facility]-2025 Telephone encounter Note * Telephone Encounter - Susannah Capellan MD - 04/17/2025 4:59 PM EDT Recommend referral to cardiac rehab at [facility]. Please call [phone] Referral in my outbox. Please inform patient once they have referral. [facility]07-01-2025 NoteHNO ID: [id number] Author: SUSANNAH CAPELLAN MD Service: ? Author Type: Physician Type: Progress Notes Filed: 04/17/2025 17:07 Note Text: Transitional Care Management Progress Note The patients TCM visit was performed within the 7 days of discharge. Patient's Date of discharge: 04/11 Date of initial coordinator contact after discharge: 04/12 Discharge diagnosis: demand ischemia Medication review completed Yes Susannah Capellan MD Provider Documentation: In follow-up of hospitalization, [...] 04/11 showed no PE. Note created with [employer] Software: Recording using ambient [employer] software for draft documentation of the visit was discussed with the patient/authorized in store marketing representative; all questions welcomed and answered. Patient/authorized in store marketing representative agreed to proceed HPI Zenaida Evans is a 89-year-old female with a history of HTN, hypothyroidism, and recent DVT, presenting for follow-up after a recent hospitalization for chest pressure and elevated troponin levels with her dtr Agustín. Zenaida was admitted to the hospital from [...] has not yet followed up with her technical support agent, Dr. Bautista, since her discharge, but has [...] No evidence o (more content not included)... [facility]07-01-2025 History of Present illness Narrative* Susannah Capellan MD - 04/17/2025 4:15 PM EDT Transitional Care Management Progress Note The patients TCM visit was performed within the 7 days of discharge. Patient's Date of discharge: 04/11 Date of initial coordinator contact after discharge: 04/12 Discharge diagnosis: demand ischemia Medication review completed Yes Susannah Capellan MD Provider Documentation: In follow-up of hospitalization, Zenaida Evans is a 89 year old female with the chief complaint of chest pain. I have reviewed the patient s last hospital course including diagnostic testing performed during this hospitalization, their discharge medications, and my assessment and plan with the patient and anyfamily members present at today s visit. CTA 04/11 showed no PE. Note created with [employer] Software: Recording using [employer] software for draft documentation of the visit was discussed with the patient/authorized in store marketing representative; all questions welcomed and answered. Patient/authorized in store marketing representative agreed to proceed HPI Zenaida Evans is a 89-year-old female with a history of HTN, hypothyroidism, and recent DVT, presenting for follow-up after a recent hospitalization for chest pressure and elevated troponin levels with her dtr Agustín. Zenaida was admitted to the hospital from [...] (190/90 mmHg) with her dtr present; her bloodpressure dropped to 105/60 mmHg, and she nearly [...] has not yet followed up with her technical support agent, Dr. Bautista, since her discharge, but has [...] of the chest in 3 to 6 monthsto monitor nodules. Ordered CT scan to be performed between July 18 and October 18. # Acute deep vein thrombosis (DVT) of calf muscle vein of left lower extremity ([facility]) (I82.462) - Diagnosed with DVT in the [...] necessary. # NSTEMI (non-ST elevated myocardial infarction) ([facility]) (I21.4) # Demand ischemia ([facility]) (I24.89) - Recent hospitalization from April 09 to for increasing chest pressure, nausea, and mild dyspnea. Initial troponin level was 95 ng/L, trending downward during hospitalization. Cardiac catheterization demonstrated mild coronary artery disease. Diagnosed with demand ischemia, likely secondary to stress. BNP level was 828 pg/mL, indicating heart failure. Chest X-ray showed no acute findings. Referred to cardiac rehabilitation program at [facility] to improve cardiovascular fitness and reduce stress. Schedule follow-up with technical support agent Dr. Bautista to discuss recent hospitalization and ongoing management. [...] up 05/14 vv at 10:40. ASSESSMENT/PLAN Susannah Capellan MD April 17, 2025 4:15 PM documented in this encounterSt. [facility] Hospital07-[facility]-2025 Telephone encounter Note * Telephone Encounter - Abena Aviles RN - 04/17/2025 8:49 AM EDT Appt scheduled [facility]07-01-2025 Miscellaneous Notes* Telephone Encounter - Abena Aviles RN - 04/17/2025 8:49 AM EDT Appt scheduled * Telephone Encounter - Abena Aviles RN - 04/16/2025 3:14 PM EDT Phone ringing busy. Appt on hold dr. Capellan 350pm. Please call pt and see if she can make appt tomorrow * Telephone Encounter - Susannah Capellan MD - 04/16/2025 2:46 PM EDT Agree with your recommendation to be seen within 24 please assist in scheduling. * Telephone Encounter - Abena Aviles RN - 04/16/2025 2:37 PM EDT Patient calling in with concern being lightheaded [...] she needs seen sooner or if dr. Capellan just wants to adjust her meds. Please advise. Nursing Triage assessment completed with protocol recommendations for disposition See PCP within 24 hours Care advice r agustin with understanding. Patient advised to contact office or seek urgent evaluation if symptomspersist or worsen. Abena Aviles RN April 16, 2025 2:39 PM Pt called regarding feeling lightheaded since starting eliquis 04/09/25 when changing positions. Pt states she had similar lightheadedness when she started farxiga and they cut it in half. Pt taking eliquis s/p hospitalization for blood clots per the pt. Pt denies n,v,diarrhea, fever, s/sx bleeding.Pt bp 129/78 hr 84. Red flag symptoms provided with understanding. Pt with hospital f/u 04/23/25. Please advise if pt needs seen sooner Reason for Disposition [1] MODERATE dizziness (e.g., interferes with normal activities) AND [2] has NOT been evaluated by doctor (or ASPHALT PATCHER/PA) for this (Exception: Dizziness caused by heat [...] n,v, diarrhea, bleeding Protocols used: Dizziness - [id number] * Telephone Encounter - [place] Raheem Mara - 04/16/2025 2:09 PM EDT Zenaida is a patient of Susannah Capellan MD today she stated she had a [...] non-symptom based questions: Thank you for calling [facility], your call will be returned within the next business day. Mara Dacosta Pss documented in this encounterSt. Charles [facility] Telephone encounter Note * Telephone Encounter - Abena Aviles RN - 04/16/2025 3:14 PM EDT Phone ringing busy. Appt on hold dr. Capellan 350pm. Please call pt and see if she can make appt tomorrow [facility]06-30-2025 Telephone encounter Note* Telephone Encounter - Susannah Capellan MD - 04/16/2025 2:46 PM EDT Agree with your recommendation to be seen within 24 please assist in scheduling[address] [facility]06-30-2025 Telephone encounter Note* Telephone Encounter - Abena Aviles RN - 04/16/2025 2:37 PM EDT Patient calling in with concern being lightheaded [...] she needs seen sooner or if dr. Capellan just wants to adjust her meds. Please advise. Nursing Triage assessment completed with protocol recommendations for disposition See PCP within 24 hours Care advice gonzalez velez with understanding. Patient advised to contact office or seek urgent evaluation if symptomspersist or worsen. Abena Aviles RN April 16, 2025 2:39 PM Pt called regarding feeling lightheaded since starting eliquis 04/09/25 when changing positions. Pt states she had similar lightheadedness when she started farxiga and they cut it in half. Pt taking eliquis s/p hospitalization for blood clots per the pt. Pt denies n,v,diarrhea, fever, s/sx bleeding.Pt bp 129/78 hr 84. Red flag symptoms provided with understanding. Pt with hospital f/u 04/23/25. Please advise if pt needs seen sooner Reason for Disposition [1] MODERATE dizziness (e.g., interferes with normal activities) AND [2] has NOT been evaluated by doctor (or ASPHALT PATCHER/PA) for this (Exception: Dizziness caused by heat [...] n,v, diarrhea, bleeding Protocols used: Dizziness - Lkkgyfqkegjnhwm-DBGWD-WO [facility]06-30-2025 Telephone encounter Note* Telephone Encounter - [place] Mara Maciel - 04/16/2025 2:09 PM EDT Zenaida is a patient of Susannah Capellan MD today she stated she had a [...] non-symptom based questions: Thank you for calling [facility], your call will be returned within the next business day. Mara Maciel [facility]06-26-2025 Telephone encounter Note* Telephone Encounter - Abena Aviles RN - 04/12/2025 10:23 AM EDT See tcm encounter [facility]06-26-2025 Miscellaneous Notes* Telephone Encounter - Abena Aviles RN - 04/12/2025 10:23 AM EDT See tcm encounter * Telephone Encounter - Susannah Capellan MD - 04/12/2025 9:37 AM EDT Please complete documentation for tcm. * Telephone Encounter - Abena Aviles RN - 04/12/2025 8:25 AM EDT Pt scheduled 04/23/25 11am. * Telephone Encounter - Susannah Capellan MD - 04/12/2025 8:05 AM EDT Patient was discharged from [facility] yesterday. Admitted 04/09- 04/11 with non stemi. Please contact and assist in scheduling tcm hospital follow up within 2 wks of discharge. I can dovv on 04/23 or in person in the morning. [facility] NoteHNO ID: [id number] Author: ABENA AVILES RN Service: ? Author Type: Registered Nurse Type: Progress Notes Filed: 04/12/2025 10:40 Note Text: TRANSITION CARE MANAGEMENT (TCM) INITIAL CONTACT Provider Action/FYI: Follow up Initial contact with patient post discharge, spoke to pt. Patient identified by name and . TCM Eligibility Documentation No recent care coordination documentation related to TCM found. SUMMARY: -Pt discharged from [facility] on 04/11/25. -Follow up appointment on 04/23/25. -Medication review done yes. -Admitted for: Nstemi, ckd, htn CONCERNS: Pt denies only taking eliquis for dvt for short duration per pt NEW MEDICATIONS: Eliquis per pt Changes: indapamide 1.25mg orally daily BRIEF HOSPITAL COURSE: 04/09/25-04/11/25[facility]06-26-[facility]25 History of Present illness Narrative* Abena Aviles RN - 04/12/2025 9:53 AM EDT TRANSITION CARE MANAGEMENT (TCM) INITIAL CONTACT Provider Action/FYI: Follow up Initial contact with patient post discharge, spoke to pt. Patient identified by name and . TCM Eligibility Documentation No recent care coordination documentation related to TCM found. SUMMARY: -Pt discharged from [facility] on 04/11/25. -Follow up appointment on 04/23/25. -Medication review done yes. -Admitted for: Nstemi, ckd, htn CONCERNS: Pt denies only taking eliquis for dvt for short duration per pt NEW MEDICATIONS: Eliquis per pt Changes: indapamide 1.25mg orally daily BRIEF HOSPITAL COURSE: 04/09/25-04/11/25 [facility] Telephone encounter Note * Telephone Encounter - Susannah Capellan MD - 04/12/2025 9:37 AM EDT Please complete documentation for tcm. [facility]06-26-2025 Telephone encounter Note* Telephone Encounter - Abena Aviles RN - 04/12/2025 8:25 AM EDT Pt scheduled 04/23/[address] [facility]06-26-2025 Telephone encounter Note* Telephone Encounter - Susannah Capellan MD - 04/12/2025 8:05 AM EDT Patient was discharged from [facility] yesterday. Admitted 04/09- 04/11 with non stemi. Please contact and assist in scheduling tcm hospital follow up within 2 wks of discharge. I can dovv on 04/23 or in person in the morning. [facility]06-26-2025 NotePatient Outreach (FAMPBR) ZENAIDA EVANS ([id number]) 1935 F Date Time Provider Department 04/12/25 ABENA AVILES FAMPBR During your visit today, we recorded the following information about you: Abena Aviles RN 04/12/2025 10:40 AM Signed TRANSITION CARE MANAGEMENT (TCM) INITIAL CONTACT Provider Action/FYI: Follow up Initial contact with patient post discharge, spoke to pt. Patient identified by name and . TCM Eligibility Documentation No recent care coordination documentation related to TCM found. SUMMARY: -Pt discharged from [facility] on 04/11/25. -Follow up appointment on 04/23/25. [...] 01/08/2023 hx of breas (more content not included)...[facility]06-25-2025 Discharge summary [facility] Medical Records Department [address] [place] [address] Discharge Summary 04/11/25 1211 MR#: [id number] Acct: [id number] Name: ZENAIDA EVANS Rep #:[id number] : 1935 89 From: Adilson wu DO PCP: Dr. Susannah Capellan MD Status:AD M IN Location: [place] [address] Providers Date of Admission: 04/09/25 Date of Discharge: 04/11/25 Primary Care Physician: Dr. Susannah Capellan MD Consultations 04/10/25 00:12 Consult: Cardiology Routine [...] is an 89-year-old female who presented to [facility] ED on 04/09/2025 for chest pain. Hospital course as noted below. Patient discharged home in stable condition on 04/11. 1. NSTEMI, acute LLE DVT ? Cardiology followed. Presented with worsening chest pain over the past 4 to 5days. Troponin trend95 > 86 > 88. EKG with normal [...] wish to minimize bleeding risk. Recommend repeat lowerextremity duplex ultrasound in 3 months for further [...] 04/10/25 11:16 SB (Rec: 04/10/25 11:16 SB [id number]) Nutrition Malnutrition Evidence of Yes Malnutrition Exists [...] 1.19, Estim Creat Clear Calc 29.71 L, EstGFR (MDRD) Non-Af44 L, BUN/Creatinine Ratio 20.8 H, Glucose 84, Calcium 9.2 Radiography Diagnostic Testing: Radiology Impression Venous Doppler Study 04/10/25 05:14 Interpretation Summary Acute deep vein thrombosis noted in the left gastrocnemius vein, posterior tibial vein. Hypoechoic, non vascular structure noted right popliteal fossa measuring 1.18cm x 2.28cm Ordering Physician: Bertha Godoy Referring Physician: Susannah Capellan Performed By: Treva Singer, JOSE DANIEL, RVT Chest CTA 04/11/25 08:18 IMPRESSION: There [...] the right midlung, image 107/240. There are iuxd-yq-bgbioeixxz densities in the right middle lobe. There is a 0.6 cm solid nodular density in the left lingularsegment, image 61/240. There is a 1.0 x 0.7 irregular solid density in the left upper lung, image 209/240. follow-up is recommended per Fleischner criteria. There is a 0.3 cm nonobstructing stone partly visible in the left kidney. Reading Location: [facility] D/C Instructions DC O2, CPAP, BIPAP Needs [...] Provider: Adilson Melchor Primary Care Provider: Susannah Capellan Consulting Providers: Vasile Reyes; Bertha Godoy Discharge Orders/Prescriptions Prescriptions: New Eliquis 5 [...] (Reason: nausea) Referrals / Follow Up: Susannah Capellan MD [Primary Care Provider] - 04/27/25 10:40 am (appointment with Eve Levy) Disposition Disposition (needs filled in before D/C Order can be placed): Home, Self Care Charges/Coding Visit Charges Inpatient E&M: 83801 Disch Hosp >30min 04/11/25 1524 Cosigner Signature (if applicable): CC: Dr. Adilson Melchor DO; Dr. Susannah Capellan MD~ Signed [facility]06-25-2025 Discharge summary Author Adilson Melchor [facility] Note Date/Time April 11, 2025 3:24 pm [facility] Medical Records Department [address] [place] [address] Discharge Summary 04/11/25 1211 MR#: [id number] Acct: [id number] Name: ZENAIDA EVANS Rep #:[id number] : 1935 89 From: Adilson wu DO PCP: Dr. Susannah Capellan MD Status:AD M IN Location: [address] Providers Date of Admission: 04/09/25 Date of Discharge: 04/11/25 Primary Care Physician: Dr. Susannah Caepllan MD Consultations 04/10/25 00:12 Consult: Cardiology Routine [...] is an 89-year-old female who presented to [facility] ED on 04/09/2025 for chest [...] anticoagulation therapy. Recommend outpatient follow up with F cardiology as needed. 2. Pulmonary nodules ? [...] 04/10/25 11:16 SB (Rec: 04/10/25 11:16 SB [id number]) Nutrition Malnutrition Evidence of Yes Malnutrition Exists [...] fossa measuring 1.18cm x 2.28cm Ordering Physician: Bertha Godoy Referring Physician: Susannah Capellan Performed By: Treva Singer, JOSE DANIEL, RVT Chest CTA 04/11/25 08:18 IMPRESSION: There [...] visible in the left kidney. Reading [facility] Instructions DC O2, CPAP, BIPAP Needs [...] Provider: Adilson Melchor Primary Care Provider: Susannah Capellan Consulting Providers: Vasile Reyes; Bertha Godoy Discharge Orders/Prescriptions Prescriptions: New Eliquis 5 [...] (Reason: nausea) Referrals / Follow Up: Susannah Capellan MD [Primary Care Provider] - 04/27/25 10:40 am (appointment with Eve Levy) Disposition Disposition (needs filled in before D/C Order can be placed): Home, Self Care Charges/Coding Visit Charges Inpatient E&M: 19269 Disch Hosp >30min 04/11/25 1524 <Electronically signed by Adilson Melchor DO> Cosigner Signature (if applicable): CC: Dr. Adilson Melchor DO; Dr. Susannah Capellan MD~ Signed [facility] Work Phone: 1(307) 401-771406-25-2025 [facility] Medical Records Department [address] [place] [address] Discharge Summary 04/11/25 1211 MR#: [id number] Acct: [id number] Name: ZENAIDA EVANS Rep #: [id number] : 1935 89 From: Adilson Melchro DO PCP: Dr. Susannah Capellan MD Status:ADM IN [facility] Prov[facility] Date of Admission: 04/09/25 Date of Discharge: 04/11/25 Primary Care Physician: Dr. Susannah Capellan MD Consultations 04/10/25 00:12 Consult: Cardiology Routine [...] is an 89-year-old female who presented to [facility] ED on 04/09/2025 for chest [...] 2+ throughout GI norm (more content not included)...[facility]06-25-2025 Radiology Diagnostic study note [facility] Imaging Services [address] [place], [place] [address] CTA Chest W/WO Contrast MR#: [id number] Acct: [id number] Name: ZENAIDA EVANS Rep #: [id number] : 1935 F 89 From: Krystal Garcia MD PCP: Dr. Susannah Capellan MD Status: AD M IN Study:CTA Chest W/WO Contrast Date of Exam: 04/11/25 Exam# [id number] Ordering Dr: Adilson Gold DO PROCEDURE: CTA [...] the right midlung, image 107/240. There are rqmt-ux-qrkijzmrou densities in the right middle lobe. There is a 0.6 cm solid nodular density in the left lingularsegment, image 61/240. There is a 1.0 x 0.7 irregular solid density in the left upper lung, image 209/240. follow-up is recommended per Fleischner criteria. There is a 0.3 cm nonobstructing stone partly visible in the left kidney. Reading Location: [facility] CC: Dr. Adilson Melchor DO; Dr. Susannah Capellan MD ~ Senior Advocate: Signed [facility]06-24-2025 Progress note Author Adilson Melchor [facility] Note Date/Time April 10, 2025 4:45 pm [facility] Medical Records Department [address] [place] [address] Progress Note - Hospitalist 04/10/25 1629 MR#: [id number] Acct: [id number] Name: ZENAIDA EVANS Rep #:[id number] : 1935 89 From: Adilson wu DO PCP: Dr. Susannah Capellan MD Status:AD M IN Location: [facility] GQG044- 1 Reason for Visit Reason for Visit: [...] 04/10/25 11:16 SB (Rec: 04/10/25 11:16 SB [id number]) Nutrition Malnutrition Evidence of Yes Malnutrition Exists [...] % (Auto) 49.3, Lymph % (Auto) 32.1, White% (Auto) 12.7 H, Eos % (Auto) 5.2 [...] without an acute cardiopulmonary abnormality. Reading Location: [id number] Echocardiogram 04/10/25 00:12 Interpretation Summary The left ventricular ejection fraction is 60 %. Normal LV size. Apical noncompaction noted There is mild to moderate mitral annular calcification. Stage 1 diastolic dysfunction. The global longitudinal strain is normal. The global longitudinal strain = - 18.9% (normal). Ordering Physician: Bertha Godoy Performed By: Alysha Conner RDCS Physical [...] is an 89-year-old female who presented to [facility] ED on 04/09/2025 for chest [...] 35 minutes. Charges/Coding Visit Charges Inpatient E&M: 63896 Subs Hosp L2 04/10/25 1645 <Electronically signed by Adilson Melchor DO> Cosigner Signature (if applicable): CC: ~ Signed [facility] Work Phone: 1(923) 642-886706-24-2025 Discharge summary Author Adilson Melchor [facility] Note Date/Time April 10, 2025 3:00 pm [facility] Medical Records Department [address] [place] [address] Instructions for Home/Discharge Instructions 04/10/25 1439 MR#: [id number] Acct: [id number] Name: ZENAIDA EVANS Rep #:[id number] : 1935 89 From: Adilson wu DO PCP: Dr. Susannah Capellan MD Status:AD M IN Discharge Instructions DC O2, CPAP, BIPAP needs Home O2 Discharge instructions: No Follow Up Care Test Results: Test results from this visit will be discussed in further detail at your follow- up appointment, if applicable. Discharge Plan Admission Admit Date/Time: 04/09/25 23:42 Primary Reason for Your Visit: Chest pain Attending Provider: Adilson Melchor Primary Care Provider: Susannah Capellan Consulting Providers: Vasile Reyes; Bertha Godoy Instructions Additional Instructions / Restrictions: Continue home medications as normal. Follow-up with your [facility] technical support agent in the near future. Discharge Orders/Prescriptions Prescriptions: [...] sublingual PRN Referrals / Follow Up: Susannah Capellan MD [Primary Care Provider] - Disposition Disposition (needs filled in before D/C Order can be placed): Home, Self Care 04/10/25 1500<Electronically signed by Adilson Melchor DO>Adilson Melchor DO CC: Dr. Vasile Reyes MD; Dr. Bertha Godoy DO; Dr. Susannah Capellan MD ~ Signed [facility] Work Phone: 1(388) 355-965406-24-2025 Progress note [facility] Medical Records Department [address] [place] [address] Progress Note - Hospitalist 04/10/25 1620 MR#: [id number] Acct: [id number] Name: ZENAIDA EVANS Rep #:[id number] : 1935 89 From: Adilson wu DO PCP: Dr. Susannah Capellan MD Status:AD M IN Location: [place] [address]- Reason for Visit Reason for Visit: Diagnoses [...] 04/10/25 11:16 SB (Rec: 04/10/25 11:16 SB [id number]) Nutrition Malnutrition Evidence of Yes Malnutrition Exists [...] % (Auto) 49.3, Lymph % (Auto) 32.1, White% (Auto) 12.7 H, Eos % (Auto) 5.2 [...] without an acute cardiopulmonary abnormality. Reading Location: [id number] Echocardiogram 04/10/25 00:12 Interpretation Summary The left ventricular ejection fraction is 60 %. Normal LV size. Apical noncompaction noted There is mild to moderate mitral annular calcification. Stage 1 diastolic dysfunction. The global longitudinal strain is normal. The global longitudinal strain = - 18.9% (normal). Ordering Physician: Bertha Godoy Performed By: Alysha Conner RDCS Physical [...] is an 89-year-old female who presented to [facility] ED on 04/09/2025 for chest [...] veins. Cannot rule out PE. As patient salter d contrast with cath today, we will [...] 35 minutes. Charges/Coding Visit Charges Inpatient E&M: 19895 Subs Hosp L2 04/10/25 1645 Cosigner Signature (if applicable): CC: ~ Signed [facility]06-24-2025 Consult note Author Vasile Reyes [facility] Note Date/Time April 10, 2025 1:01 pm [facility] Medical Records Department [address] [place] [address] Consultation - Cardiology 04/10/25 0728 MR#: [id number] Acct: [id number] Name: ZENAIDA EVANS Rep #:[id number] : 1935 89 From: Vasile Reyes MD PCP: Dr. Susannah Capellan MD Status:AD M IN [facility] Assessment & Plan Assessment/Plan (1) NSTEMI (non-ST elevated myocardial infarction): PLAN: Patient presents with chest discomfort and a non-ST elevation myocardial infarction coupled with nausea. My recommendation at this time would be to consider a left heart catheterization. Risk benefits alternatives have and explained to her and she wants to talk to her technical support agent in [place] before proceeding. In the meantime she will [...] medical therapy. Patient can follow-up with her technical support agent in [place]. HPI Consult Data Date of Consult: 04/10/25 HPI Narrative HPI Narrative: ZENAIDA EVANS, is a 89 F who presents to the emergency room with nausea and abdominal pain as well as chest discomfort. She had previously seen her technical support agent in [place] about a week ago with similar findings [...] evaluation and management. She is currently pain-free. [facility] Medical History CHF (congestive heart [...] % (Auto) 49.3, Lymph % (Auto) 32.1, White% (Auto) 12.7 H, Eos % (Auto) 5.2 [...] % (Auto) 49.3, Lymph % (Auto) 32.1, White % (Auto) 12.7 H, Eos % (Auto) [...] without an acute cardiopulmonary abnormality. Reading Location: [id number] 04/10/25 1301 <Electronically signed by Vasile Reyes MD> Cosigner Signature (if applicable): CC: Dr. Susannah Capellan MD~ Signed [facility] Work Phone: 1(105) 826-904206-24-2025 Discharge summary [facility] Medical Records Department [address] [place] [address] Instructions for Home/Discharge Instructions 04/10/25 1439 MR#: [id number] Acct: [id number] Name: ZENAIDA EVANS Rep #:[id number] : 1935 89 From: Adilson Moyer estephania TOMAS PCP: Dr. Susannah Capellan MD Status:AD M IN Discharge Instructions DC O2, CPAP, BIPAP needs Home O2 Discharge instructions: No Follow Up Care Test Results: Test results from this visit will be discussed in further detail at your follow- up appointment, if applicable. Discharge Plan Admission Admit Date/Time: 04/09/25 23:42 Primary Reason for Your Visit: Chest pain Attending Provider: Adilson Melchor Primary Care Provider: Susannah Capellan Consulting Providers: Vasile Reyes; Bertha Godoy Instructions Additional Instructions / Restrictions: Continue home medications as normal. Follow-up with your [facility] technical support agent in the near future. Discharge Orders/Prescriptions Prescriptions: [...] sublingual PRN Referrals / Follow Up: Susannah Capellan MD [Primary Care Provider] - Disposition Disposition (needs filled in before D/C Order can be placed): Home, Self Care 04/10/25 1500Alexandestephania Melchor CC: Dr. Vasile Reyes MD; Dr. Bertha Godoy DO; Dr. Susannah Capellan MD ~ Signed [facility]06-24-2025 Consult note [facility] Medical Records Department [address] [place] [address] Consultation - Cardiology 04/10/2528 MR#: [id number] Acct: [id number] Name: ZENAIDA EVANS Rep #:[id number] : 1935 89 From: Vasile Reyes MD PCP: Dr. Susannah Capellan MD Status:AD M IN Location: [place] [address] Assessment & Plan Assessment/Plan (1) NSTEMI (non-ST elevated myocardial infarction): PLAN: Patient presents with chest discomfort and a non-ST elevation myocardial infarction coupled with nausea. My recommendation at this time would be to consider a left heart catheterization. Risk benefits alternatives have and explained to her and she wants to talk to her technical support agent in [place] before proceeding. In the meantime she will [...] medical therapy. Patient can follow-up with her technical support agent in [place]. HPI Consult Data Date of Consult: 04/10/25 HPI Narrative HPI Narrative: ZENAIDA EVANS, is a 89 F who presents to the emergency room with nausea and abdominal pain as well as chest discomfort. She had previously seen her technical support agent in [place] about a week ago with similar findings [...] evaluation and management. She is currently pain-free. [facility] Medical History CHF (congestive heart [...] % (Auto) 49.3, Lymph % (Auto) 32.1, White% (Auto) 12.7 H, Eos % (Auto) 5.2 [...] % (Auto) 49.3, Lymph % (Auto) 32.1, White % (Auto) 12.7 H, Eos % (Auto) [...] without an acute cardiopulmonary abnormality. Reading Location: [id number] 04/10/25 130 Cosigner Signature (if applicable): CC: Dr. Susannah Capellan MD~ Signed [facility]06-24-2025 History and physical note Author Bertha Lazaro [facility] Note Date/Time April 10, 2025 7:03 am [facility] Medical Records Department [address] [place] [address] H&P Exam - Hospitalist 04/09/25 7781 MR#: [id number] Acct: [id number] Name: ZENAIDA EVANS Rep #:[id number] : 1935 89 From: Bertha Flores DO PCP: Dr. Susannah Capellan MD Status:AD M IN [facility] HPI - General General Date of Admission: 04/09/25 Date of Service: 04/09/25 Chief Complaint: Chest Pain. HPI Narrative ZENAIDA EVANS, is a 89 F with past medical history of essential hypertension; onvalsartan, labetalol, amlodipine, indapamide, hydrochlorothiazide and furosemide, hypothyroidism; on levothyroxine, former tobacco abuse, history of chronic diastolic CHF; LVEF 65% and stage I diastolic dysfunction (2019) followed by technical support agent at [facility], neuropathy; on gabapentin, historyof microscopic colitis, history of Right breast cancer; s/p lumpectomy with radiation and OA who presents to [facility] ER complaining of chest pain. Ms. Evans reports her symptoms began more than a month ago but then ~5 days ago they became very intense with chest pressure that was sacpwplj-na-ujoawq, substernal and nonradiating with pain that would [...] abnormality with the ER physician then contacting technical support agent on-call who recommended IV heparin and patient be admitted to the hospitalist service to the PCU for ongoing care for stay that is expected to extend beyond 2 midnights. [facility] Medical History CHF (congestive heart [...] Allergy Unknown Verified 04/09/25 18:49 pentazocine (From Talvictor manuel) Allergy Other Verified 04/09/25 18:49 scopolamine Allergy [...] % (Auto) 49.3, Lymph % (Auto) 32.1, White% (Auto) 12.7 H, Eos % (Auto) 5.2 [...] without an acute cardiopulmonary abnormality. Reading Location: [id number] Assessment & Plan Assessment/Plan (1) Chest pressure: [...] to evaluate LVEF. Give acetaminophen prn for eaei-oe-krasflcu (level 1-5/10) pain or fever. Give morphine IV prn for severe (level 6-10/10) pain. Finally, we will consult [facility] see this patient on rounds [...] stage I diastolic dysfunction (2019) followed by technical support agent at [facility] - Stable with no evidence of [...] 55 minutes. Charges/Coding Visit Charges OBSV E&M: 17686 Observ/hosp same date L2 04/10/25 0703 <Electronically signed by Bertha Godoy DO> Cosigner Signature (if applicable): CC: Dr. Bertha Godoy DO; Dr. Susannah Capellan MD~ Signed [facility] Work Phone: 1(535) 581-423506-24-2025 Telephone encounter Note* Telephone Encounter - Joann Honeycutt - 04/10/2025 8:16 AM EDT April 10, 2025 Name: Zenaida Evans Patient Contact Number: [phone] (home) [phone] (cell) Date of last office visit: 04/03/2025 Reason For Call: Chest pain/angina - Patient was taken to the ED overnight to [facility]. They believe she has had a heart attack based on the elevated enzymes. They want to do a cardiac cath today, but the patient wants to see if Dr. Bautista thinks she should be moved to [facility]. Zenaida Evans can be reached at [phone]. Physician: Paul Bautista MD Patient was informed that non-urgent calls may be returned within the next three business days. Yes Joann Honeycutt [facility] STAFF PHYSICIAN NOTE OF PERSONAL INVOLVEMENT IN CARE Discussed with patient. Went into ER with chest pain and nausea. HS trop to 95 and then decreased to 86. Discussed reasonable to ask for transfer to [facility] if bed can be available as soon as possible. If it will take > 36 hours, would perform LHC there to understand the anatomy and if there is a culprit lesion. Currently pain and nausea free admitted to [facility]. STAFF PHYSICIAN: Paul Bautista MD [facility]06-24-2025 Miscellaneous Notes* Telephone Encounter - Joann Honeycutt - 04/10/2025 8:16 AM EDT April 10, 2025 Name: Zenaida Evans Patient Contact Number: [phone] (home) [phone] (cell) Date of last office visit: 04/03/2025 Reason For Call: Chest pain/angina - Patient was taken to the ED overnight to [facility]. They believe she has had a heart attack based on the elevated enzymes. They want to do a cardiac cath today, but the patient wants to see if Dr. Bautista thinks she should be moved to [facility]. Zenaida Evans can be reached at [phone]. Physician: Paul Bautista MD Patient was informed that non-urgent calls may be returned within the next three business days. Yes Joann Honeycutt [facility] STAFF PHYSICIAN NOTE OF PERSONAL INVOLVEMENT IN CARE Discussed with patient. Went into ER with chest pain and nausea. HS trop to 95 and then decreased to 86. Discussed reasonable to ask for transfer to [facility] if bed can be available as soon as possible. If it will take > 36 hours, would perform LHC there to understand the anatomy and if there is a culprit lesion. Currently pain and nausea free admitted to [facility]. STAFF PHYSICIAN: Paul Bautista MD [facility] History and physical note [facility] Medical Records Department [address] [place] [address] H&P Exam - Hospitalist 04/09/25 6555 MR#: [id number] Acct: [id number] Name: ZENAIDA EVANS Rep #:[id number] : 1935 89 From: Bertha Flores DO PCP: Dr. Susannah Capellan MD Status:AD M IN Location: [place] [address] HPI - General General Date of Admission: 04/09/25 Date of Service: 04/09/25 Chief Complaint: Chest Pain. HPI Narrative ZENAIDA EVANS, is a 89 F with past medical history of essential hypertension; onvalsartan, labetalol, amlodipine, indapamide, hydrochlorothiazide and furosemide, hypothyroidism; on levothyroxine, former tobacco abuse, history of chronic diastolic CHF; LVEF 65% and stage I diastolic dysfunction (2019) followed by technical support agent at [facility], neuropathy; on gabapentin, historyof microscopic colitis, history of Right breast cancer; s/p lumpectomy with radiation and OA who presents to [facility] ER complaining of chest pain. Ms. Evans reports her symptoms began more than a month ago but then ~5 days ago they became very intense with chest pressure that was ixexfraw-vk-kiisdi, substernal and nonradiating with pain that would [...] abnormality with the ER physician then contacting technical support agent on-call who recommended IV heparin and patient be admitted to the hospitalist service to the PCU for ongoing care for stay that is expected to extend beyond 2 midnights. [facility] Medical History CHF (congestive heart [...] Allergy Unknown Verified 04/09/25 18:49 pentazocine (From Talvictor manuel) Allergy Other Verified 04/09/25 18:49 scopolamine Allergy [...] % (Auto) 49.3, Lymph % (Auto) 32.1, White% (Auto) 12.7 H, Eos % (Auto) 5.2 [...] without an acute cardiopulmonary abnormality. Reading Location: [id number] Assessment & Plan Assessment/Plan (1) Chest pressure: [...] to evaluate LVEF. Give acetaminophen prn for zpfc-ke-idnqphjw (level 1-5/10) pain or fever. Give morphine IV prn for severe (level 6-10/10) pain. Finally, we will consult [facility] see this patient on rounds [...] stage I diastolic dysfunction (2019) followed by technical support agent at [facility] - Stable with no evidence of [...] 55 minutes. Charges/Coding Visit Charges OBSV E&M: 50645 Observ/hosp same date L2 04/10/25 0703 Cosigner Signature (if applicable): CC: Dr. Bertha Godoy DO; Dr. Susannah Capellan MD~ Signed [facility]06-24-2025 Evaluation note* Diagnosis Onset Date Resolution Status Admit Date Chest pressure acute April 09, 2025 11:42pm Elevated troponin acute April 092024 11:42pm Hypertensive emergency acute [facility] 2024 11:42pm NSTEMI (non-ST elevated myocardial infarction) acute March 11:42pm Chronic diastolic CHF (congestive heart failure) chronic April 09, 2025 11:42pm Chronic kidney disease chronic [facility] 2024 11:42pm HTN (hypertension) chronic March 192024 11:42pm [facility] Work Phone: 1(574) 104-259706-24-2025 Evaluation note* Diagnosis Onset Date Resolution Status Admit Date Chest pressure resolved April 09, 2025 11:42pm Elevated troponin resolved April 092024 11:42pm Hypertensive emergency resolved [facility] 2024 11:42pm NSTEMI (non-ST elevated myocardial infarction) resolved March 11:42pm Chronic diastolic CHF (congestive heart failure) inactive April 09, 2025 11:42pm Chronic kidney disease inactive [facility] 2024 11:42pm HTN (hypertension) inactive March 192024 11:42pm [facility] Work Phone: 1(453) 739-195706-24-2025 Evaluation note* Diagnosis Onset Date Resolution Status Admit Date Chest pressure resolved April 09, 2025 11:42pm Elevated troponin resolved April 092024 11:42pm Hypertensive emergency resolved [facility] 2024 11:42pm NSTEMI (non-ST elevated myocardial infarction) resolved March 11:42pm Chronic diastolic CHF (congestive heart failure) inactive April 09, 2025 11:42pm Chronic kidney disease inactive [facility] 2024 11:42pm HTN (hypertension) inactive March 192024 11:42pm (HFpEF) heart failure with preserved ejection fraction acute April 27, 2025 8:05pm BRIGHT (acute kidney injury) acute April 27, 2025 8:05pm 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 acute April 272024 8:05pm HTN (hypertension), benign acute April 27, 2025 8:05pm Hypoxia acute April 27 8:05pm Orthostatic hypotension acute J michelle 2024 8:05pm [facility] Work Phone: 1(289) 602-124406-24-2025 Evaluation note* Diagnosis Onset Date Resolution Status Admit Date Chest pressure resolved April 09, 2025 11:42pm Elevated troponin resolved April 092024 11:42pm Hypertensive emergency resolved [facility] 2024 11:42pm NSTEMI (non-ST elevated myocardial infarction) resolved March 11:42pm Chronic diastolic CHF (congestive heart failure) inactive April 09, 2025 11:42pm Chronic kidney disease inactive [facility] 2024 11:42pm HTN (hypertension) inactive March 192024 11:42pm BRIGHT (acute kidney injury) resolved April 27, 2025 8:05pm Orthostatic hypotension resolved J michelle 2024 8:05pm (HFpEF) heart failure with preserved ejection fraction inactive April 27, 2025 8:05pm 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 Susannah Capellan MD Status:RE G ER Location: ED HPI [...] no shortness of breath. She sees a technical support agent at the [facility]. While she does not take furosemide daily,she is on other diuretics including Farxiga. No increased swelling of her legs. No exacerbating or alleviating factors. There is no predictability to chest pressure nausea. [facility] Medical History CHF (congestive heart [...] % (Auto) 49.3 Lymph % (Auto) 32.1 White % (Auto) 12.7 H Eos % (Auto) [...] without an acute cardiopulmonary abnormality. Reading Location: [id number] Management Discussion w/another healthcare provider: Hospitalist and [employer] Guard ( cardiology) Discharge Plan Dx/Rx/DC Orders Clinical Impression: Chest pressure, HTN (hypertension), Elevated troponin, Chronic kidney disease Disposition Disposition: Acute Care Hospital [facility] What to do if you have Problems For any increased pain, shortness of breath, bleeding, nausea or vomiting, chestpain, or any unexpected problems, contact your Primary Care Provider. Call [facility] ([phone]) or report to the closest Emergency Room. Call 911 if necessary. 04/09/25 4489 <Electronically signed by Serge Mcmullen MD> Cosigner Signature (if applicable): CC: Dr. Susannah Capellan MD ~ Signed [facility] Work Phone: 1(192) 917-681606-23-2025 Discharge summary [facility] Medical Records Department [address] [place] [address] Emergency Department Summary 04/09/25 MR#: [id number] Acct: [id number] Name: ZENAIDA EVANS Rep #:[id number] : 1935 89 From: Serge Mcmullen MD PCP: Dr. Susannah Capellan MD Status:RE G ER Location: ED HPI [...] no shortness of breath. She sees a technical support agent at the [facility]. While she does not take furosemide daily,she jesus manuel other diuretics including Farxiga. No increased swelling of her legs. No exacerbating or alleviating factors. There is no predictability to chest pressure nausea. [facility] Medical History CHF (congestive heart failure) [...] Labs: Laboratory Results - last 24 hr 0604/09/25 04/09/25 19:24 21:20 21:54 WBC 5.7 RBC 3.95 L Hgb 12.4 Hct 37.2 MCV 94.2 MCH 31.4 MCHC 33.3 RDW Std Deviation 44.4 H RDW Coeff of Gabriella 12.9 Plt Count 216 MPV 9.7 Immature Gran % (Auto) 0.200 Neut % (Auto) 49.3 Lymph % (Auto) 32.1 White % (Auto) 12.7 H Eos % (Auto) [...] without an acute cardiopulmonary abnormality. Reading Location: [id number] Management Discussion w/another healthcare provider: Hospitalist and [employer] ( cardiology) Discharge Plan Dx/Rx/DC Orders Clinical Impression: Chest pressure, HTN (hypertension), Elevated troponin, Chronic kidney disease Disposition Disposition: Acute Care Hospital [facility] What to do if you have Problems For any increased pain, shortness of breath, bleeding, nausea or vomiting, chestpain, or any unexpected problems, contact your Primary Care Provider. Call [facility] ([phone]) or report tothe closest Emergency Room. Call 911 if necessary. 04/09/25 6594 Cosigner Signature (if applicable): CC: Dr. Susannah Capellan MD ~ Signed [facility]06-23-2025 Radiology Diagnostic study note [facility] Imaging Services [address] [place] [address] Chest 1 View (Portable) MR#: [id number] Acct: [id number] Name: ZENAIDA EVANS Rep #: [id number] : 1935 F 89 From: Kath Scott MD PCP: Dr. Susannah Capellan MD Status: RE G ER Study:Chest 1 View (Portable) Date of Exam: 04/09/25 Exam# [id number] Ordering Dr: Provider ,Ed P. PROCEDURE: CHEST 1 VIEW (PORTABLE) [...] without an acute cardiopulmonary abnormality. Reading Location: [id number] CC: Dr. Susannah Capellan MD; ED PHYSICIAN PROVIDER ~ Senior Advocate: Signed [facility]06-23-2025 Discharge summary Author Serge Mcmullen [facility] Note Date/Time April 09, 2025 11:0 7pm [facility] Medical Records Department [address] [place] [address] Emergency Department Summary 04/09/25 MR#: [id number] Acct: [id number] Name: ZENAIDA EVANS Rep #:[id number] : 1935 89 From: Serge Mcmullen MD PCP: Dr. Susannah Capellan MD Status:RE G ER Location: ED HPI [...] no shortness of breath. She sees a technical support agent at the [facility]. While she does not take furosemide daily,she is on other diuretics including Farxiga. No increased swelling of her legs. No exacerbating or alleviating factors. There is no predictability to chest pressure nausea. [facility] Medical History CHF (congestive heart failure) [...] % (Auto) 49.3 Lymph % (Auto) 32.1 White % (Auto) 12.7 H Eos % (Auto) [...] without an acute cardiopulmonary abnormality. Reading Location: [id number] Management Discussion w/another healthcare provider: Hospitalist and [employer] ( cardiology) Discharge Plan Dx/Rx/DC Orders Clinical Impression: Chest pressure, HTN (hypertension), Elevated troponin, Chronic kidney disease Disposition Disposition: [facility] What to do if you have Problems For any increased pain, shortness of breath, bleeding, nausea or vomiting, chestpain, or any unexpected problems, contact your Primary Care Provider. Call [facility] ([phone]) or report to the closest Emergency Room. Call 911 if necessary. 04/09/252306 <Electronically signed by Serge Mcmullen MD> Cosigner Signature (if applicable): CC: Dr. Susannah Capellan MD ~ Signed [facility] Work Phone: 1(872) 632-624706-19-2025 Telephone encounter Note* Telephone Encounter - Tara Orona MA - 04/05/2025 4:03 PM EDT Placed form in pending paper slot above MA''s desk [facility]06-19-2025 Miscellaneous Notes* Telephone Encounter - Tara Orona MA - 04/05/2025 4:03 PM EDT Placed form in pending paper slot above MA''s desk * Telephone Encounter - Susannah Capellan MD - 04/05/2025 3:55 PM EDT This is an application to a wellness program at [facility]. I see that her Drill Foreman has ordered a stress test and I would have to defer to him if there are any limitations after we receive results of the stress test. * Telephone Encounter - Tara Orona MA - 04/02/2025 10:04 AM EDT Placed form in Dr. Capellan's in basket, please sign documented in this encounterSt. [facility]06-[facility]-2025 Telephone encounter Note * Telephone Encounter - Susannah Capellan MD - 04/05/2025 3:55 PM EDT This is an application to a wellness program at [facility]. I see that her Drill Foreman has ordered a stress test and I would have to defer to him if there are any limitations after we receive results of the stress test. [facility]06-18-2025 Telephone encounter Note* Telephone Encounter - [...] to ordering physician and to P PET AGRICULTURAL TECHNICIAN [facility] with recommendations. If all recommended orders are present route to P PET AGRICULTURAL TECHNICIAN MC [facility]06-18-2025 Miscellaneous Notes* Telephone Encounter - Dee [...] to ordering physician and to P PET AGRICULTURAL TECHNICIAN [facility] with recommendations. If all recommended orders are present route to P PET AGRICULTURAL TECHNICIAN [facility] * Telephone Encounter - Divine Cleary - 04/04/2025 8:46 AM EDT This form is used for MAIN CAMPUS APPOINTMENTS ONLY. Is this request for a [facility] [place] PET scan appointment? Yes: Manuscripts Archivist: Divine Calabrese Who do we call to schedule this appointment? Patient Requesting Staff [id number] Area Code + Phone/Pager: N/A PET Orders [...] day/next day medically urgent scans please call [phone] to expedite Send requests to P CARDIAC PET MD [facility] documented in this encounterSt. [facility] Hospital06-18-2025 Telephone encounter Note * Telephone Encounter - Divine Cleary - 04/04/2025 8:46 AM EDT This form is used for MAIN CAMPUS APPOINTMENTS ONLY. Is this request for a [facility] [place] PET scan appointment? Yes: Manuscripts Archivist: Divine Calabrese Who do we call to schedule this appointment? Patient Requesting Staff [id number] Area Code + Phone/Pager: N/A PET Orders [...] day/next day medically urgent scans please call [phone] to expedite Send requests to P CARDIAC PET [facility]06-17-2025 Instructions* Patient Instructions* Paul Bautista MD - 04/03/2025 12:37 PM EDT Thank you for visiting the [facility] at the [facility]. Here are your instructions. 1. Increase indapamide to 2.5mg daily. 2. Continue Farxiga at 5mg daily. 3. Labs in 1 week after starting higher dose. 4. Schedule Stress test. 5. Return in 6 months with plans to discuss testing in interim. Please call with questions or concerns. Office: [phone] Paul Bautista MD documented in this encounterSt. Charles Hospital06-17-2025 NoteHNO ID: [id number] Author: PAUL BAUTISTA MD Service: ? Author Type: Physician Type: Progress Notes Filed: 04/03/2025 12:45 Note Text: [facility] [place] [facility] SECTION OF HEART FAILURE and CARDIAC TRANSPLANT MEDICINE OUTPATIENT VISIT DATE April 03, 2025 OUTPATIENT VISIT TYPE Established Patient PRIMARY CARE PHYSICIAN: Susannah Capellan [address] [place] [address] CHIEF COMPLAINT: Shortness of breath and chest [...] She also reports intermittent episodes of feeling "sick," characterized by mild headaches, slight nausea, and [...] 03/13/2011 no retinopathy detected -both eyes - [facility] - return in 1 year - Dr. [...] Passive exposure: Never Smokeless (more content not included)...[facility]06-17-2025 History of Present illness Narrative* Paul Bautista MD - 04/03/2025 11:15 AM EDT Images from the original note were not included. [facility] [place] [facility] SECTION OF HEART FAILURE and CARDIAC TRANSPLANT MEDICINE OUTPATIENT VISIT DATE April 03, 2025 OUTPATIENT VISIT TYPE Established Patient PRIMARY CARE PHYSICIAN: Susannah Capellan [facility] [place] [address] CHIEF COMPLAINT: Shortness of breath and chest [...] She also reports intermittent episodes of feeling "sick," characterized by mild headaches, slight nausea, and [...] 03/13/2011 no retinopathy detected -both eyes - [facility] - return in 1 year - Dr. [...] 67 Resp 15 Ht 168.9 cm (5' 6.5") Wt 58.5 kg (129 lb) SpO2 95% [...] ENLARGEMENT BORDERLINE ECG Confirmed by CHRIS SERRANO, [facility] ([id number]) on 07/03/2024 3:08:37 PM Latest Reference Range [...] Abs Lymph 1.00 - 4.00 k/uL 1.82 White% % 9.6 Abs White <0.87 k/uL 0.41 Eosin% % 1.4 Abs [...] non-medical management as above. Paul Bautista MD [facility] Section Of Heart Failure and Cardiac Transplant Medicine [facility] [place] [facility] Desk [address] [place] [address] documented in this encounterSt. Charles Hospital06-16-2025 Telephone encounter Note * Telephone Encounter - aTra Orona MA - 04/02/2025 10:04 AM EDT Placed form in Dr. Capellan's in basket, please sign [facility]06-10-2025 Instructions* Patient Instructions* Susannah Capellan MD - 03/27/2025 5:41 PM EDT Screening [...] review all the medicines you take, even qzzb-gqk-bvnlumx medicines. As you get older, the way [...] have certain medical conditions. documented in this encounterSt. Charles Hospital06-10-2025 NoteHNO ID: [id number] Author: SUSANNAH CAPELLAN MD Service: ? Author Type: Physician Type: Progress Notes Filed: 03/27/2025 17:41 Note Text: Zenaida Evans is a 89 year old female here for a Medicare wellness visit. Recording using [employer] software for draft documentation of the visit was discussed with the patient/authorized in store marketing representative; all questions welcomed and answered. Patient/authorized in store marketing representative agreed to proceed Zenaida Evans is a 89-year-old female with a history of heart failure, presenting for evaluation of recent episodes of chest pressure, dyspnea, and fatigue. Zenaida reports experiencing two episodes of chest pressure, dyspnea, and fatigue over the past few weeks, similar to previous "heart failure" symptoms. These episodes lasted a couple of days each and resolved spontaneously. She describes the chest pressure as a "heavy feeling" and notes significant fatigue, stating she could "hardly move" and felt "completely washed out" at night. These symptoms were not associated [...] and difficulty walking during a meeting in [facility]. A stress test was performed in July following this event, which showed her heart rate only reached 79% of the maximum, but no ischemia was detected. She has a follow-up appointment with her technical support agent, Dr. Bautista, next week and an echocardiogram [...] Dr. Bautista Cardiology Dr. Candace Manning hand Jitendra Escobedo, Breast Psychology Abena Melchor when daughter was sick [facility] Medical/Family history review Reviewed and updated problem list, medical/surgical/family/social history, medications, and allergies. FAMILY HISTORY Problem Relation Age of Onset Alzheimer's Disease Mother hypertension/stroke d89 Hypertension Mother Stroke Mother Heart Father heart failure, d 72 other (emphseyma) Sister d 59 other (healthy) Daughter Pancreati (more content not included)...[facility]06-10-2025 History of Present illness Narrative* Susannah Capellan MD - 03/27/2025 4:30 PM EDT Images from the original note were not included. Zenaida Evans is a 89 year old female here for a Medicare wellness visit. Recording using [employer] software for draft documentation of the visit was discussed with the patient/authorized in store marketing representative; all questions welcomed and answered. Patient/authorized in store marketing representative agreed to proceed Zenaida Evans is a 89-year-old female with a history of heart failure, presenting for evaluation of recent episodes of chest pressure, dyspnea, and fatigue. Zenaida reports experiencing two episodes of chest pressure, dyspnea, and fatigue over the past few weeks, similar to previous "heart failure" symptoms. These episodes lasted a couple of days each and resolved spontaneously. She describes the chest pressure as a "heavy feeling" and notes significant fatigue, stating she could "hardly move" and felt "completely washed out" at night. These symptoms were not associated [...] and difficulty walking during a meeting in [facility]. A stress test was performed in July following this event, which showed her heart rate only reached 79% of the maximum, but no ischemia was detected. She has a follow-up appointment with her technical support agent, Dr. Bautista, next week and an echocardiogram [...] Dr. Bautista Cardiology Dr. Candace Manning hand Jitendra Escobedo, Breast Psychology Abena Melchor when daughter was sick [facility] Medical/Family history review Reviewed and [...] (97.6 F) (Oral) Ht 167.6 cm (5' 6") Wt 60.4 kg (133 lb 2.5 oz) [...] 2009. Assessment and Plan: # Atherosclerosis of [place] coronary artery of [place] heart without angina pectoris (I25.10) # Chronic [...] in about 6 months (around 09/26/2025). Susannah Capellan MD documented in [facility] encounter[facility] Telephone encounter Note * Telephone Encounter - Kelsi Deleon RN - 02/05/2025 4:58 PM EDT Pt returning call, Results and recommendations reviewed with Understanding [facility] Miscellaneous Notes* Telephone Encounter - Kelsi Deleon RN - 02/05/2025 4:58 PM EDT Pt returning call, Results and recommendations reviewed with Understanding documented in this encounterSt. [facility]04-[facility]-2025 Telephone encounter Note * Telephone Encounter - Tara Orona MA - 01/19/2025 1:05 PM EDT Mailed to patient [facility]04-04[facility]2025 Miscellaneous Notes* Telephone Encounter - Tara Orona MA - 01/19/2025 1:05 PM EDT Mailed to patient * Telephone Encounter - Eve Daniel PA-C - 01/19/2025 11:24 AM EDT Order placed, please inform patient * Telephone Encounter - Tara Orona MA - 01/19/2025 9:21 AM EDT Spoke with patient and stated that this was ordered in the past by Eve Daniel and to use the DX on the previous order. Last order was 10/04/2023. * Telephone Encounter - Keyona Mckeon LPN - 01/17/2025 8:15 AM EDT Left message for patient to return call. Message can be given upon returned call. * Telephone Encounter - Eve Daniel PA-C - 01/16/2025 8:27 AM EDT Please find out reason for patient wanting medical massage as the order requires a diagnosis * Telephone Encounter - Juliet Ayala - 01/15/2025 11:05 AM EDT Tommy is calling Susannah Capellan MD today to request Orders (Medical Massage) Patient has been identified by name and birthdate. Duration of symptoms: N/A Person calling: spouse: Tommy Call patient at: [phone] (home) [phone] (cell) Was an appointment scheduled: Closing statement: Juliet Maciel documented in this encounterSt. [facility]04-[facility]-2025 Telephone encounter Note * Telephone Encounter - Eve Daniel PA-C - 01/19/2025 11:24 AM EDT Order placed, please inform patient [facility] Telephone encounter Note* Telephone Encounter - Tara Orona MA - 01/19/2025 9:21 AM EDT Spoke with patient and stated that this was ordered in the past by Eve Daniel and to use the DX on the previous order. Last order was 10/04/2023. [facility] Telephone encounter Note* Telephone Encounter - Keyona Mckeon LPN - 01/17/2025 8:15 AM EDT Left message for patient to return call. Message can be given upon returned call. [facility]04[facility] Telephone encounter Note* Telephone Encounter - Eve Daniel PA-C - 01/16/2025 8:27 AM EDT Please find out reason for patient wanting medical massage as the order requires a diagnosis [facility]03-[facility] Telephone encounter Note* Telephone Encounter - Juliet Ayala - 01/15/2025 11:05 AM EDT Tommy is calling Susannah Capellan MD today to request Orders (Medical Massage) Patient has been identified by name and birthdate. Duration of symptoms: N/A Person calling: spouse: Tommy Call patient at: [phone] (home) [phone] (cell) Was an appointment scheduled: Closing statement: Juliet Maciel [facility] Work Phone: [phone] Note* Addendum Note - Joanie House MD - 01/09/2025 3:30 PM EDTAddended by: JOANIE HOUSE on: 01/09/2025 03:30 PM Modules accepted: Orders [facility]03-[facility]-2025 Miscellaneous Notes* Addendum Note - Joanie [...] PM EDT Refills available documented in this encounterSt. [facility] Hospital03-24-2025 Telephone encounter Note * Telephone Encounter - Tara Orona MA - 01/08/2025 12:45 PM EDT Patient is requesting from [employer]: Refills as follows: Requested Prescriptions Pending Prescriptions Disp Refills cloNIDine TTS (CATAPRES-TTS) 0.1 mg/24 hr 12 Patch 1 Sig: Apply 1 Patch as directed one time a week. Please review and advise. Last office visit 07/03/2024 Future office visit 03/27/[address]25 [facility] Miscellaneous Notes* Telephone Encounter - Tara Orona MA - 01/08/2025 12:45 PM EDT Patient is requesting from [employer]: Refills as follows: Requested Prescriptions Pending Prescriptions Disp Refills cloNIDine TTS (CATAPRES-TTS) 0.1 mg/24 hr 12 Patch 1 Sig: Apply 1 Patch as directed one time a week. Please review and advise. Last office visit 07/03/2024 Future office visit 03/27/2025 documented in this encounterSt. [facility]03-24-2025 Telephone encounter Note * Telephone Encounter - Leatha Levin - 01/08/2025 8:52 AM EDT Please see Pt Mychart message Last visit 07/26/24 Please approve prescription and any additional refills and e-script to designated pharmacy. Thank you, Leatha Poonam [facility]03-[facility] Telephone encounter Note* Telephone Encounter - Joann Saenz RN - 01/05/2025 2:46 PM EDT Refills available [facility]01-[facility] Telephone encounter Note* Telephone Encounter - [facility] Mara Maciel - 11/16/2024 9:21 AM EST Patient returned phone call and stated she will do the test, she stated thank you for the reminder,she appreciates the doctor remembering this. [facility]30[facility] Miscellaneous Notes* Telephone Encounter - [facility] Mara Maciel - 11/16/2024 9:21 AM EST Patient returned phone call and stated she will do the test, she stated thank you for the reminder,she appreciates the doctor remembering this. * Telephone Encounter - Keyona Mckeon LPN - 11/15/2024 5:21 PM EST Left message for patient to return call. Message can be given upon returned call * Telephone Encounter - Susannah Capellan MD - 11/15/2024 11:29 AM EST Recommend follow up complete blood count to keep an eye on blood counts. Order placed. documented in this encounterSt. [facility] Hospital01-29-2025 Telephone encounter Note * Telephone Encounter - Keyona Mckeon LPN - 11/15/2024 5:21 PM EST Left message for patient to return call. Message can be given upon returned call [facility] encounter Note* Telephone Encounter - Susannah Capellan MD - 11/15/2024 11:29 AM EST Recommend follow up complete blood count to keep an eye on blood counts. Order placed. [facility] Telephone encounter Note* Telephone Encounter - Abena Aviles RN - 10/24/2024 11:17 AM EST Appt made 04/07/25 and pt placed [facility] wait [facility] Miscellaneous Notes* Telephone Encounter - Abena Aviles RN - 10/24/2024 11:17 AM EST Appt made 04/07/25 and pt placed on wait list * Telephone Encounter - Johana Snyder - 10/24/2024 10:53 AM EST Zenaida is calling Susannah Capellan MD today regarding the cancelled Medicare Wellness Visit that was cancelled and no appointments available until October of [address] Capellan, per patient she only wants to see PCP and declined scheduling with any other providers. Please call patient to assist with rescheduling with PCP Patient has been identified by name and birthdate. NOTE: patient is also requesting an order for a mammogram Person calling: self Call patient at: at home [phone] (home) verified as best number per patient Was an appointment scheduled: No Closing statement: Results or non-symptom based questions: Thank [facility], your call will be returned within the next business day. Johana Kathleen documented in this encounterSt. [facility]01-07-2025 Telephone encounter Note * Telephone Encounter - Johana Snyder - 10/24/2024 10:53 AM EST Zenaida is calling Susannah Capellan MD today regarding the cancelled Medicare Wellness Visit that was cancelled and no appointments available until October of [address] Capellan, per patient she only wants to see PCP and declined scheduling with any other providers. Please call patient to assist with rescheduling with PCP Patient has been identified by name and birthdate. NOTE: patient is also requesting an order for a mammogram Person calling: self Call patient at: at home [phone] (home) verified as best number per patient Was an appointment scheduled: No Closing statement: Results or non-symptom based questions: Thank you for [facility], your call will be returned within the next business day. Johana Kathleen [facility]12-[facility] Telephone encounter Note* Telephone Encounter - Tara Orona MA - 10/09/2024 7:54 AM EST Patient is requesting from MyChart: Refills as follows: Requested Prescriptions Pending Prescriptions Disp Refills labetalol (TRANDATE) 200 mg tablet 180 tablet 1 Sig: Take 1 tablet by mouth two times a day. Please review and advise. Last office visit 07/03/2024 Future office visit 11/09/2024 [facility] Miscellaneous Notes* Telephone Encounter - Tara Orona MA - 10/09/2024 7:54 AM EST Patient is requesting from [facility]: Refills as follows: Requested Prescriptions Pending Prescriptions Disp Refills labetalol (TRANDATE) 200 mg tablet 180 tablet 1 Sig: Take 1 tablet by mouth two times a day. Please review and advise. Last office visit 07/03/2024 Future office visit 11/09/2024 documented in this encounterSt. [facility] Hospital11-13-2024 Telephone encounter Note * Telephone Encounter - Joshua Roach - 08/30/2024 9:35 AM EST Call from patient requesting refill. Requested Prescriptions Pending Prescriptions Disp Refills indapamide (LOZOL) 1.25 mg tablet 90 tablet 3 Sig: Take 1 tablet by mouth once daily. Patient last seen 03/30/[address] [facility]11-13-[facility]24 Miscellaneous Notes* Telephone Encounter - Joshua Roach - 08/30/2024 9:35 AM EST Call from patient requesting refill. Requested Prescriptions Pending Prescriptions Disp Refills indapamide (LOZOL) 1.25 mg tablet 90 tablet 3 Sig: Take 1 tablet by mouth once daily. Patient last seen 03/30/24 Joshua Roach documented in this encounterSt. [facility] Hospital11-12-2024 Telephone encounter Note * Telephone Encounter [...] notify patient. Please review. Tess Natarajan MA [facility]11-12-2024 Miscellaneous Notes* Telephone Encounter - Tess [...] review. Tess Natarajan MA documented in this encounterSt. Charles Hospital10-09-2024 Instructions* Patient Instructions* Joanie House MD [...] please call the office. documented in this encounterSt. Charles Hospital10-09-2024 History of Present illness Narrative* Allie Choudhary MD - 07/26/2024 1:50 PM EDT [...] 03/13/2011 no retinopathy detected -both eyes - [facility] - return in 1 year - Dr. [...] Abs Lymph 1.00 - 4.00 k/uL 2.24 White% % 14.7 Abs White <0.87 k/uL 0.83 Eosin% % 3.0 Abs [...] Tess Mason RN acting as scribe for Allie Choudhary MD. July 26, 2024 1:57 PM. [...] Past Histories independently gathered by the clinical product support manager and the remaining scribed note accurately describes [...] of service preparing to see the patient, [id number] patient care, completing clinical documentation, obtaining and/or reviewing separately obtained history, performing a medically appropriate examination and counseling and educating the patient/family/customer care manager Allie Choudhary MD Patient notified of bx result, SK 07/28 Allie Choudhary MD documented in this encounterSt. Charles Hospital09-30-2024 History of Present illness Narrative* Joshua Godinez MD - 07/17/2024 10:48 AM EDT Patient [...] benefits of Farxiga with the prescribing physician. Joshua Godinez MD documented in this encounterSt. Charles Hospital09-27-2024 History of Present illness Narrative* Maria E Adams, RT(R) - 07/14/2024 9:30 AM EDT Radiology [...] PATIENT PRESENTS WITH AN IMPLANTABLE OR ATTACHED MARKETING SECRETARY: No RADIOLOGY DEPARTMENT: General X-ray: Exam(s) Completed: Chest X-Ray PERIPHERAL IV DATA: Not applicable SIGNED BY: RT Russell(R) July 14, 2024 9:21 AM documented in this encounterSt. Charles Hospital09-26-2024 History of Present illness Narrative* Win Martinez MD - 07/13/2024 2:59 PM EDT This note was created using [employer]. Subjective Zenaida Evans is a 89 year [...] episode occurred on a flat street in [place], and this unexpected breathlessness was accompanied by [...] Despite these challenges, other symptoms such as hand potter travel did not reveal further clarification on [...] to her treatment plan. documented in this encounterSt. Charles Hospital09-25-2024 Telephone encounter Note * Telephone Encounter - Sally Ha RN - 07/12/2024 9:07 AM EDT Offered next day appointment with Dr. Martinez, patient states that she sees Dr. Bautista [facility]. Advised her to call his office and I would forward to his office. Reason for Disposition [1] MILD difficulty breathing (e.g., minimal/no SOB at rest, SOB with walking, pulse <100) AND [2] NEW-onset or WORSE than normal Answer Assessment - Initial Assessment Questions 1. RESPIRATORY STATUS: "Describe your breathing?" (e.g., wheezing, shortness of breath, unable to speak, severe coughing) [place] SOB and chest heaviness for the first time on Wednesday, before walking one block. She walked from [address] and later in the day walked back. She had to take multiple breaks (standing and sitting). 2. ONSET: "When did this breathing problem begin?" Wednesday 3. PATTERN "Does the difficult breathing come and go, or has it been constant since it started?" Happened 4. SEVERITY: "How bad is your breathing?" (e.g., mild, moderate, severe) - MILD: No [...] Moderate; episodic with exertion. 5. RECURRENT SYMPTOM: "Have you had difficulty breathing before?" If Yes, ask: "When was the last time?" and "What happened that time?" It happened again on Wednesday with short stint of yard work, after walking up the slope in their yard- but "not as pronounced" as on Wednesday. 6. CARDIAC HISTORY: "Do you have any history of heart disease?" (e.g., heart attack, angina, bypasssurgery, angioplasty) CHF, SVT, HTN 7. LUNG HISTORY: "Do you have any history of lung disease?" (e.g., pulmonary embolus, asthma, emphysema) Pleural effusion 8. CAUSE: "What do you think is causing the breathing problem?" Unknown. Normally she can out walk her whole family. 9. OTHER SYMPTOMS: "Do you have any other symptoms? (e.g., dizziness, runny nose, cough, chest pain, fever) denies 10. O2 SATURATION MONITOR: "Do you use an oxygen saturation monitor (pulse oximeter) at home?" If Yes, ask: "What is your reading (oxygen level) today?" "What is your usual oxygen saturation reading?" (e.g., 95%) N/a 11. : "Is there any chance you are ?" "When was your last menstrual period?" N/a 12. TRAVEL: "Have you traveled out of the country in the last month?" (e.g., travel history, exposures) denies Protocols used: Breathing [id number]-ZL [facility] Miscellaneous Notes* Telephone Encounter - Sally Ha RN - 07/12/2024 9:07 AM EDT Offered next day appointment with Dr. Martinez, patient states that she sees Dr. Bautista [facility]. Advised her to call his office and I would forward to his office. Reason for Disposition [1] MILD difficulty breathing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 upcoming appt . Follow up: See patient instructions The majority of the pharmacy visit (> 50%) was spent counseling and/or coordinating care for thepatient. Time was 35 minutes. documented in this encounterSt. Charles Hospital11-16-2023 History of Present illness Narrative* Nadja [...] 02, 2023 10:51 AM documented in this encounterSt. Charles Hospital11-13-2023 History of Present illness Narrative* Liam Bull, PT - 08/30/2023 4:26 PM EST Program_ID:[id number] Access Code: [email or web address] URL: [email or web address] App/ Date: 08-30-2023 Prepared By: Liam Bull Program [...] of Care: created on 08/30/23 through 10/12/23 [place] in home exercise program. Patient will decrease [...] Planned: 4 Planned Treatment Interventions: Therapeutic exercise (55438), Neuromuscular re- education (53437), Manual therapy (90640), Therapeutic activities (51446), Self- residential management (37587), Gait Training (78357), Patient/Family/Caregiver Education PLAN FOR NEXT VISIT: Assess [...] her pain for days following. Patient reports "hard to know what exactly causes it, she cannot attribute any specific activity that makes it worse". Reports right now she is in 0/10 pain. Denies B LE involvement. Patient Goals: Reduce chronic sharp, intermittent pain. Functional Limitations: sleeping Functional Limitation Comments: Exercising. Prior Level of Function: Independent without limitations Relevant History Past Relevant Medical Conditions: Hypertension Employment: Retired Recreation / Current Exercise: 3x/per week at [employer]; light machines Intake Information: Prescription present Previous [...] program TREATMENT: PT Treatment Interventions: Therapeutic Exercise, Self-Intermediate Management Evaluation Therapeutic Exercise: 1: *Supine LTR: 1x10 ea. 2: *Supine TA Bracinx10, 5" hold. 3: *Seated HS Stretch:2x30" 4: *Supine BKFO: 1x10 ea. 5: *R SKC: 1x30" 6: *Supine Glute Stretch to [place] Shoulder: 1x30" ea. Skilled Intervention: Patient was educated in proper exercise technique and purpose for exercises. Reviewed and educated patient on additions/changes for home exercise program as above (*). Skilled judgment was used in selection of appropriate interventions. Provided written instruction for home exercise program to facilitate proper performance and compliance. Correct performance of therapeutic exercises was facilitated with verbal, visual, and tactile cuing. Self-Intermediate Management: 1: *Postural education. 2: *Discussed therapy [...] 1628 Liam Bull PT documented in this encounterSt. Charles Hospital10-30-2023 Miscellaneous Notes* Telephone Encounter - Katey Melo - 08/16/2023 9:38 AM EDT Patient last seen 02/2023 RX Minoxidil Please approve prescription and any additional refills and e-script to designated pharmacy. Thank you, Katey Melo documented in this encounterSt. Charles Hospital10-20-2023 History of Present illness Narrative* Bertha Yanez PA-C - 08/06/2023 10:58 AM EDT Images from the original note were not included. Bertha Yanez [facility]-C [facility] [address] [place] [address] 08/06/2023 ASSESSMENT AND PLAN: Assessment : Encounter [...] the pelvis and sacrum. She has tried child care development specialist, massage therapy every 2 weeks, acupuncture, TENS unit in the chiropractic office, and physical therapy a number of years ago. All of these things have given her moderate relief without long-lasting relief. She uses occasional Aleve for her symptoms and finds that walking on a treadmill seems to help a little bit too. She participates in daily exercising at the [facility] fitness center in [facility]. EXAM Highlights: She mobilizes somewhat slowly [...] perhaps try supervised PT again at the [facility]. She will return here if symptoms appreciably [...] today with this patient visit. This includes wecx-rw-oyjw time, review of chart records regarding conservative care history, spine- pertinent imaging, and communication/care coordination with referring provider, problem-specific history-taking and counseling/education regarding treatment options. cc: Susannah Capellan [address] [place] [id number] Results of consultation to be transmitted via electronic medical record for those providers who practice within [facility] or with access to [employer] via MD Connect, or via letter. ######################################################################## CHIEF COMPLAINT: Patient is here for the lower back pain. Has this pain for years and it is gettingworse. Sometimes pain, from the lower back, radiates up to the middle back. Level of the pain is atpain is at 3/10. She exercising and it helps with pain. HPI: see "Discussion" above History of bowel or bladder dysfunction [...] injection (DEFINITY) INTRAVENOUS DIRECTED PRN Le Orourke SOCCER COMMENTATOR.BUSINESS PROFESSOR sodium chloride 0.9 % (flush) 10 mL (BD POSIFLUSH) 10 mL INTRAVENOUS DIRECTED PRN Le Orourke SOCCER COMMENTATOR.BUSINESS PROFESSOR Allergies: Scopolamine, Amlodipine, Hctz [Thiazides], Hydralazine, Iron, [...] 03/13/2011 no retinopathy detected -both eyes - [facility] - return in 1 year - Dr. [...] 125/67, pulse 69, height 166.4 cm (5' 5.5"), weight 60.8 kg (134 lb 1.6 oz), [...] STUDIES: See discussion above documented in this encounterSt. Charles Hospital10-18-2023 History of Present illness Narrative* Fabiola [...] 04, 2023 12:48 PM documented in this encounterSt. Charles Hospital10-09-2023 Instructions* Patient Instructions* Cristina Lara, RODY - 07/26/2023 2:14 PM EDT Images from the original note were not included. [facility] [place] Section of Audiology Thank you for trusting the [facility] Audiology department with your hearing healthcare [...] technology, please call our scheduling line at [phone] and ask for a Hearing Aid Evaluation appointment at your preferred [facility] location. You can request this appointment with your weigher and grader through [employer], as well. In order to investigate a potential insurance benefit for hearing aids, please plan to schedule your appointment for at least 1 week from the time of your phone call so that your insurance benefit can be verified. If there is no insurance benefit, please be aware there is a $100 ssx-ta-kdeigy fee due at time of service. Listed [...] Recommendations: * Continue medical follow-up with Susannah Capellan MD . * The patient was counseled regarding the need to continue to monitor hearing and have regular hearing assessments. * The patient was counseled regarding effective communication strategies to enhance communication ability. * Call [phone] to schedule an appointment to assess your need for hearing aids. Request a HAE appointment. Thank you for trusting and choosing [facility] Audiology with your hearing care needs. Pleasedo not hesitate to reach out with any questions or concerns. Sincerely, RODY Dejesus, [facility] Clinical and Senior Hearing Implant Administrative Services Specialist documented in this encounterSt. Charles Hospital10-09-2023 History of Present illness Narrative* Cristina Lara AUD - 07/26/2023 1:45 PM EDT Head and [place]ck [place] AUDIOLOGIC EVALUATION REPORT Name: Zenaida Evans [facility]#: [id number] Date of Service: 07/26/2023 Date of : 1935 Age: [age] year old Referred by: Susannah Capellan MD Referred for: Evaluation of suspected change in hearing, tinnitus, or balance. Referral documented: In an order in [facility] Patient's major complaints: Hearing loss: mostly [...] evaluation of middle ear function. CPT code: 14985 RIGHT EAR: Did not test. LEFT EAR: Did not test. ACOUSTIC REFLEXES Description of procedure: This test is an objective measure of auditory and facial nerve pathways. CPT code: 99041, 43054 RIGHT EAR PROBE EAR: (ipsi right stimulus [...] and boneconduction and speech recognition testing. CPT code:08999 RIGHT EAR: Hearing Sensitivity: Mild sloping to [...] RECOMMENDATIONS * Continue medical follow-up with Susannah Capellan MD . * The patient was counseled regarding the need to continue to monitor hearing and have regular hearing assessments. * The patient was counseled regarding effective communication strategies to enhance communication ability. * Call [phone] to schedule an appointment to assess your need for hearing aids. Request a HAE appointment. Rody Dejesus, [facility] Clinical and Senior Hearing Implant Administrative Services Specialist copied to: Susannah Capellan MD [place] Abbrev- iation Definition Degree of hearing sensitivity dB range WNL within normal limits WNL 0 - 20 SNHL sensorineural hearing loss Mild 20-40 CHL conductive hearing loss Moderate 40-55 MHL mixed hearing loss Moderately-Severe 55-70 WRS word recognition score Severe 70-90 ME middle ear Profound 90 + TM tympanic membrane documented in this encounterSt. [facility]09-21-[facility] History of Present illness Narrative* Tracy [...] 12:35 PATIENT DISCHARGED TO: Ambulatory patient, left MS department area. A Diagnostic radioactive procedure has taken place, with no further precautions necessary other than routine body substance precautions. More information regarding radiation safety can be found usingthis link: [email or web address] SIGNATURE: Tracy Chisholm, RT(R) PATIENT NAME: Zenaida Evans DATE: July 08, 2023 TIME: 12:46 PM PAGER/CONTACT #: documented in this encounterSt. Charles Hospital09-18-2023 History of Present illness Narrative* Susannah Capellan MD - 07/05/2023 1:15 PM EDT Zenaida [...] sexual function:Not at all denies bladder concerns. [place] anxious, stressed, angry, irritable, lonely, isolated, or had thoughts of hurting themself: Not at all Has little interest or pleasure in doing things: Several days Bothered by feeling down, depressed, or hopeless: Several days States stressful caring for . Is now at [facility], now getting rehab. Needs help with grocery shopping, cooking, housework, bathing, grooming, dressing, eating, sitting or standing, walking, using the toilet, handling finances, taking medications, using the telephone, or driving: Yes Ordering several meals a week from someone. 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 Driving okay. 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 Following safety precautions in the [...] in the medical record. Dermatology new in [place] for Basal Cell Cardiology Gastroenterology Jitendra Escobedo for breast follow up. No need [...] No suspiciousactivity was identified. 07/05/2023 by Susannah Capellan MD Depression screening tool completed and reviewed. [...] 78 Temp (Src) 97.7 (Oral) Ht 5' 6.5" (1.69m) Wt 133 lb 4 oz (60.4kg) PyO267% BMI 21.19 kg/(m^2). Hemoglobin (g/dL) Date Value [...] Abs Lymph 1.00 - 4.00 k/uL 1.81 White% % 9.6 Abs White <0.87 k/uL 0.41 Eosin% % 3.3 Abs [...] NM HEPATOBILIARY W EF AND/OR RX Susannah Capellan MD documented in this encounterSt. Charles Hospital06-22-2023 History of Present illness Narrative* Kelsi [...] visits planned) Planned Treatment Interventions: Therapeutic exercise (03009), Neuromuscular re- education (98758), Manual therapy (07105), Therapeutic activities (25117), Self- residential management (04525), Gait Training (08649), Patient/Family/Caregiver Education PLAN FOR NEXT VISIT: DC - no concordant symptoms reproduced with MSK movement or positional change Patient demonstrates good understanding of plan of care and treatment. The above goals and plan of care were discussed and agreed upon by patient/family. SUBJECTIVE: Zenaida Evasn is a 87 year old female seen today for for right side flank/abdominal pain that onset a month ago. Pt. reports it has been reducing over the past week with medication Rx'dand is non-existent today. She has hx of chronic LBP scoliosis but this does not bother her today. She is "not sure what PT can do for it or why she is here." Per pt. chart review: US completed "course echotexture of liver" and distention of common bile duct. Pt. [...] States/Identifies, Return Demonstration TREATMENT: PT Treatment Interventions: Self-Intermediate Management Evaluation Self-Intermediate Management: 1: provided pt. education with images: [...] 30 Kelsi Souza PT documented in this encounterSt. Charles Hospital06-16-2023 History of Present illness Narrative* Lyndsay Krishnamurthy - 04/02/2023 12:26 PM EDT EVENT MONITOR DISPOSABLE PATCH INSTRUCTIONS Patient Name: Zenaida Evans [facility] Number: [id number] Skin prepped and cleansed with alcohol Patch secured to prepped area Monitor Activated Serial #: [id number] Patient Instructed: Prescribed order timeframe Bathing guidelines Usage of event button and diary documentation Return of monitor at the end of prescribed order Call with problems [phone] or [phone] ext. [phone] Patient expresses a good understanding of instructions Lyndsay Krishnamurthy documented in this encounterSt. Charles Hospital06-15-2023 History of Present illness Narrative* Kelsi [...] 01, 2023 10:12 AM documented in this encounterSt. Charles Hospital06-06-2023 History of Present illness Narrative* Susannah Capellan MD - 03/23/2023 4:56 PM EDT Patient presents with: Follow Up Didn't want to take too much tramadol. States taking more ibuprofen. Not sure where the back pain came from. Didn't do physical therapy. 2 wks ago pain was 7/10, now about a 4/10. BP 130/62 Pulse 75 Temp 36.8 C (98.2 F) (Oral) Ht 167.6 cm (5' 6") Wt 59.4 kg (131 lb) SpO2 96% [...] symptoms worsen or fail to improve. Susannah Capellan MD documented in this encounterSt. Charles Hospital05-22-2023 Miscellaneous Notes* Telephone Encounter - Sally Ha RN - 03/08/2023 8:22 AM EDT Patient calling in with moderate back pain, still after EC gave steroid. Asking for appointment with Dr. Capellan today. VV scheduled. Reason for Disposition [1] MODERATE back pain (e.g., interferes with normal activities) AND [2] present > 3 days Answer Assessment - Initial Assessment Questions 1. ONSET: "When did the pain begin?" Over a week ago 2. LOCATION: "Where does it hurt?" (upper, mid or lower back) Right upper back 3. SEVERITY: "How bad is the pain?" (e.g., Scale 1-10; mild, moderate, or severe) - MILD (1-3): doesn't interfere with normal activities - MODERATE (4-7): interferes with normal activities or awakens from sleep - SEVERE (8-10): excruciating pain, unable to do any normal activities 6 or 7 4. PATTERN: "Is the pain constant?" (e.g., yes, no; constant, intermittent) constant 5. RADIATION: "Does the pain shoot into your legs or elsewhere?" denies 6. CAUSE: "What do you think is causing the back pain?" unknown 7. BACK OVERUSE: "Any recent lifting of heavy objects, strenuous work or exercise?" denies 8. MEDICATIONS: "What have you taken so far for the pain?" (e.g., nothing, acetaminophen, NSAIDS) She was "desperate and took a tramadol" that she had left over. 9. NEUROLOGIC SYMPTOMS: "Do you have any weakness, numbness, or problems with bowel/bladder control?" denies 10. OTHER SYMPTOMS: "Do you have any other symptoms?" (e.g., fever, abdominal pain, burning with urination, blood in urine) denies 11. : "Is there any chance you are ?" (e.g., yes, no; LMP) N/a Protocols used: Back [id number] documented in this encounterSt. Charles Hospital05-09-2023 Miscellaneous Notes* Telephone Encounter - Tara Orona MA - 02/23/2023 10:23 AM EDT Gave message to patient, expressed understanding Mailed to patient * Telephone Encounter - Susannah Capellan MD - 02/23/2023 10:05 AM EDT Order printed in my outbox. documented in this encounterSt. Charles Hospital04-15-2023 History of Present illness Narrative* Kelsi Colby APRN.BUSINESS PROFESSOR - 01/30/2023 9:53 AM EDT This note [...] history is provided by the patient. No language instructor was used. Sore Throat This is a [...] 03/13/2011 no retinopathy detected -both eyes - [facility] - return in 1 year - Dr. [...] week Kelsi Colby APRN.URMILA documented in this encounterSt. Charles Hospital03-22-2023 Miscellaneous Notes* Letter - Mammography Coordinator - 01/06/2023 4:13 PM EDT January 07, 2023 PID: [id number] Zenaida Evans [address] [place] [address] Dear Ms. Evans, We are pleased to [...] report will [facility] as part of your permanent medical record and are available for your continuing care. Thank you for allowing us to help in meeting your health care needs. Sincerely, Dr. Laughlin Interpreting Radiologist [facility] (Normal over 40) documented in this encounterSt. Charles Hospital03-21-2023 History of Present illness Narrative* Barbara Edwards, RT(R) - 01/05/2023 3:30 PM EDT Radiology [...] 05, 2023 3:35 PM documented in this encounterSt. 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 [place] today for annual exam and DBT mammogram. 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 She underwent a right NL PM with [...] D 2000 units. BMD: Yes, Date in [facility]: 01/02/21; lowest T Score - 0.8-Normal [...] results - Negative Colonoscopy: Yes, Date in [facility]: 09/08/13; results - Diverticulosis-repeat in 10 [...] 03/13/2011 no retinopathy detected -both eyes - [facility] - return in 1 year - Dr. [...] which included preparing to see the patient, [id number] patient care, completing clinical documentation, obtaining and/or reviewing separately obtained history, performing a medically appropriate examination, counseling and educating the pat ient/family/caregiver, ordering medications, tests, or procedures, communicating results to the patient/family/caregiver, and care coordination (not separately reported). Jitendra Escobedo APRN.URMILA Medical Breast Specialist Women's Health Nurse Practitioner CC: Susannah Capellan MD [address] [place] [address] documented in this encounterSt. Charles Hospital02-07-2023 History of Present illness Narrative* Win Maria MD - 11/24/2022 11:38 AM ESTAssociated [...] 03/13/2011 no retinopathy detected -both eyes - [facility] - return in 1 year - Dr. [...] injection (DEFINITY) INTRAVENOUS DIRECTED PRN Le Orourke, SOCCER COMMENTATOR.BUSINESS PROFESSOR sodium chloride 0.9 % (flush) 10 mL (BD POSIFLUSH) 10 mL INTRAVENOUS DIRECTED PRN Le Orourke, SOCCER COMMENTATOR.BUSINESS PROFESSOR ALLERGIES Allergen Reactions Scopolamine Mental Status Change [...] trigger finger Informed Consent Consent Obtained: Verbal [place] Protocol A moment to CARE was completed. [...] Plan of Care Visit completed when applicable Win Maria MD documented in this encounterSt. Charles Hospital02-03-2023 Instructions* Patient Instructions* Le Orourke APRN.CNP - 11/20/2022 11:27 AM EST -No medication changes today. -Please have blood work drawn on 01/12/2023 and I will follow-up with you when I get the results. -Follow-up with Dr. Bautista on 04/02/2023 with echo (if possible). documented in this encounterSt. Charles Hospital02-03-2023 History of Present illness Narrative* Le Orourke APRN.CNP - 11/20/2022 10:26 AM EST Images from the original note were not included. [facility] [place] [facility] SECTION OF HEART FAILURE and CARDIAC TRANSPLANT MEDICINE OUTPATIENT VISIT DATE 11/20/2022 PRIMARY CARE PHYSICIAN: Susannah Capellan [address] [place] [address] PRIMARY HEART FAILURE SENIOR MEDICAL WRITER: Dr. Bautista CHIEF COMPLAINT: Follow-up HISTORY OF [...] 03/13/2011 no retinopathy detected -both eyes - [facility] - return in 1 year - Dr. [...] 137/68 Pulse 76 Ht 167.6 cm (5' 6") Wt 61.9 kg (136 lb 8 oz) [...] 0.1 mg patch weekly Device therapy: no, [place]addo QRS: 80 ms Sleep apnea: no Anemia: [...] as above. Le Orourke MSN, ACNP-BC, CHFN, [facility] Section Of Heart Failure and Cardiac Transplant Medicine Heart [facility] [place] [facility] Desk J[address] [place] [address] documented in this encounterSt. Charles Hospital01-12-2023 Miscellaneous Notes* Telephone Encounter - Keyona Mckeon - 10/29/2022 9:38 AM EST Patient informed. * Telephone Encounter - Susannah Capellan MD - 10/29/2022 9:33 AM EST Please inform of unviewed mychart results (kidney us): Your kidney ultrasound reveals benign findings and there is no evidence of urinary retention. Dr. Capellan Written by Susannah Capellan MD on 10/22/2022 7:28 PM EST documented in this encounterSt. Charles Hospital12-22-2022 Miscellaneous Notes* Telephone Encounter - Crystal [...] with primary care provider. documented in this encounterSt. Charles Hospital12-22-2022 History of Present illness Narrative* Kelsi [...] 08, 2022 11:09 AM documented in this encounterSt. Charles Hospital12-19-2022 History of Present illness Narrative* Ramandeep Nieto PA-C - 10/05/2022 3:08 PM EST 10/05/2022 Patient presents with: UTI: Pelvic pain, pain with urination x4 days SUBJECTIVE: This is a 87 year old that is here today for Complaint(s) of dysuria x 3-4 days. Havingpressure associated. Notes increased urination (increased from recent visit with Dr. Capellan) A pelvic and renal US was ordered [...] 03/13/2011 no retinopathy detected -both eyes - [facility] - return in 1 year - Dr. [...] dip. Ramandeep Nieto PA-C documented in this encounterSt. Charles Hospital12-15-2022 History of Present illness Narrative* Susannah Capellan MD - 10/01/2022 2:52 PM EST Patient [...] Abs Lymph 1.00 - 4.00 k/uL 2.10 White% % 10.4 Abs White <0.87 k/uL 0.50 Eosin% % 3.3 Abs [...] in about 3 months (around 12/30/2022). Susannah Capellan MD documented in this encounterSt. Charles Hospital12-15-2022 Evaluation note* Diagnosis Stage 3 chronic [...] kidney disease (HCC) documented [facility]11-28-20[facility] History of Present illness Narrative* Rosendo Rodgers MD - 09/14/2022 2:43 PM EST Phone call. Reviewed labs, hemoglobin normal. Plan recheck in spring. 10 minute phone call. Rosendo Rodgers MD September 14, 2022 documented in this encounterSt. Charles Hospital11-25-2022 Miscellaneous Notes* Telephone Encounter - Letitia [...] patient once the orders are in at [phone]. Thank you documented in this encounterSt. Charles Hospital11-16-2022 Instructions* Patient Instructions* Paul Bautista MD - 09/02/2022 1:56 PM EST Thank you for visiting the [facility]. Here are your instructions. 1. Only take your furosemide as needed for weight gain of 3lbs in a day or 5lbs in a week. 2. Start indapamide 1.25mg per day. 3. Obtain labs in 1 week. 4. Return in 3 months with ASPHALT PATCHER and 6 months with me. Please call with questions or concerns. Office: [phone] Paul Bautista MD documented in this encounterSt. Charles Hospital11-16-2022 History of Present illness Narrative* Paul Bautista MD - 09/02/2022 1:15 PM EST Images from the original note were not included. [facility] [place] [facility] SECTION OF HEART FAILURE and CARDIAC TRANSPLANT MEDICINE OUTPATIENT VISIT DATE September 02, 2022 OUTPATIENT VISIT TYPE Established Patient PRIMARY CARE PHYSICIAN: Susannah Capellan [facility] [place] [address] CHIEF COMPLAINT: Feeling well NURSING INTAKE (Patient [...] in 04/2020 when she presented to her technical support agent with peripheral edemarequiring furosemide. Her ntprobnp had [...] Breast cancer (HCC) 09/[address] Nina moreas ER positive s/p surgery/radiation and AI Collagenous colitis 07/30/2017 On biopsy 2012. Diarrhea hx of colitis Diffuse cystic mastopathy Dyspareunia Essential hypertension H/O complete eye exam 03/13/2011 no retinopathy detected -both eyes - [facility] - return in 1 year - Dr. [...] 70 Resp 15 Ht 168.9 cm (5' 6.5") Wt 60.3 kg (133 lb) SpO2 97% [...] non-medical management as above. Paul Bautista MD [facility] Section Of Heart Failure and Cardiac Transplant Medicine Heart [facility] [place] [facility] Desk J3-[address] [place] [address] documented in this encounterSt. Charles Hospital10-20-2022 Miscellaneous Notes* Telephone Encounter - Hyacinth Sanchez RN - 08/06/2022 1:10 PM EDT Contacted pt. Notified pt that she would need an office visit as she has not been seen since 2018. Let her know she can contact her PCP to see if they would be able to fill this for her. She states she will call the PCP at this time. * Telephone Encounter - Nadja Mosley [facility] - 08/06/2022 12:02 PM EDT Pt calling for a refill on her Ipratropium .06% spray. I did not see it on med list. Thank you! documented in this encounterSt. Charles Hospital10-05-2022 Miscellaneous Notes* Telephone Encounter - Allie Choudhary MD - 07/22/2022 5:36 PM EDT Zenaida Evans is a 87 year old female Refilled oral minoxidil 1.25 a day Allie Choudhary MD documented in this encounterSt. Charles Hospital09-29-2022 History of Present illness Narrative* Susannah Capellan MD - 07/16/2022 11:47 AM EDT Patient presents with: Follow Up States was at [facility] and looked into the water. States did look into it earlier. The govt had a bill. Some of the chemicals are: Benzene (discussed possible effect on bone marrow AML, CLL) Tetrachloroethylene (discussed acute toxicity, neuro, pulmonary and GI) Trichloroethylene Vinyl Chloride (liver cancer). Discussed and will check in with them. States blood pressure at home has been very good. Did see Drill Foreman who ran a 24 hour blood pressure. [...] in about 3 months (around 10/15/2022). Susannah Capellan MD documented in this encounterSt. Charles Hospital08-15-2022 History of Present illness Narrative* Dennys [...] by mouth two times a week. Lmefol Fq-jbvphf-qxQ37-algal (CEREFOLIN NAC, ALGAL OIL,) 6 mg-600 mg- [...] Pressure in Adults: A Report of the [place] [employer]/[place] [employer] Task Force on Clinical Practice Guidelines. Hypertension. 2018 Theo;71(6):d55-e514. Epub 2016Aug 30. The ABPM should be [...] all individual readings will be scanned into [employer], which can be reviewed under scanned documents. Dennys Guzman MD documented in this encounterSt. Charles Hospital08-01-2022 Instructions* Patient Instructions* Paul Bautista MD - 05/18/2022 10:27 AM EDT Thank you for visiting the [facility]. Here are your instructions. I'm concerned [...] Please call with questions or concerns. Office: [phone] Paul Bautista MD documented in this encounterSt. Charles Hospital08-01-2022 History of Present illness Narrative* Paul Bautista MD - 05/18/2022 9:30 AM EDT Images from the original note were not included. [facility] [place] [facility] SECTION OF HEART FAILURE and CARDIAC TRANSPLANT MEDICINE OUTPATIENT VISIT DATE May 18, 2022 OUTPATIENT VISIT TYPE Consultation PRIMARY CARE PHYSICIAN: Susannah Capellan [facility] [place] [address] CHIEF COMPLAINT: Shortness of breath NURSING INTAKE (Patient s concerns and/or recent hospitalizations/ER visits): Zenaida Evans is being referred by Dr. Capellan for a diagnosis of HFpEF and further [...] in 04/2020 when she presented to her technical support agent with peripheral edemarequiring furosemide. Her ntprobnp had [...] 03/13/2011 no retinopathy detected -both eyes - [facility] - return in 1 year - Dr. [...] by mouth two times a week. Lmefol Wd-icalts-tkR69-algal (CEREFOLIN NAC, ALGAL OIL,) 6 mg-600 mg- [...] Adult) Pulse 64 Ht 167.6 cm (5' 6") Wt 62.3 kg (137 lb 6.4 oz) [...] 2019;22(1):148-158. doi: [email or web address]. Epub 2018Aug 07. PMID: [id number]. PLAN AND RECOMMENDATIONS: 86 yo male with [...] LVH or low voltage and her echocardiogram [id number] does not show any overt cardiac remodeling. She has NYHA class IIIa symptoms when dealing withinclines. Given her NTprobnp, will start SGLT2i. We had a discussion about urogenital infections. 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 We will also assess ambulatory blood pressure [...] non-medical management as above. Paul Bautista MD [facility] Section Of Heart Failure and Cardiac Transplant Medicine Heart [facility] [place] [facility] Desk J3-[address] [place] [address] documented in this encounterSt. Charles Hospital07-28-2022 Instructions* Patient Instructions* Jodi Hatfield RN [...] at patients earliest convienence documented in this encounterSt. Charles Hospital07-28-2022 History of Present illness Narrative* Allie [...] 03/13/2011 no retinopathy detected -both eyes - [facility] - return in 1 year - Dr. [...] by mouth two times a week. Lmefol Fa-fwjjlb-hxN16-algal (CEREFOLIN NAC, ALGAL OIL,) 6 mg-600 mg- [...] Abs Lymph 1.00 - 4.00 k/uL 1.40 White% % 11.2 Abs White <0.87 k/uL 0.40 Eosin% % 2.2 Abs [...] of service preparing to see the patient, paqw-jx-rska patient care, completing clinical documentation, obtaining and/or reviewing separately obtained history, performing a medically appropriate examination and counseling and educating the patient/family/customer care manager Allie Choudhary MD documented in this encounterSt. Charles Hospital07-01-2022 History of Present illness Narrative* Rosendo [...] 03/13/2011 no retinopathy detected -both eyes - [facility] - return in 1 year - Dr. [...] by mouth two times a week. Lmefol Ws-rscdfu-nmO59-algal (CEREFOLIN NAC, ALGAL OIL,) 6 mg-600 mg- [...] (Src) 97.2 (Temporal) Resp 20 Ht 5' 5.354" (1.66m) Wt 134 lb (60.8kg) SpO2 98% [...] which included preparing to see the patient, xukf-nv-[id number] patient care, completing clinical documentation, obtaining and/or reviewing separately obtained history, counseling and educating the patient/family/caregiver, independently interpretin g results (not separately reported) and communicating results to the patient/family/caregiver. Electronically Signed: Rosendo Rodgers MD April 17, 2022 11:04 AM documented in this encounterSt. Charles Hospital06-28-2022 History of Present illness Narrative* Susannah Capellan MD - 04/14/2022 10:09 AM EDT Patient presents with: Follow Up Had appointment with hematology, changed the date. At home highest blood pressure is low 130's. Forgot meds this morning. Ever since diagnosed with congestive heart failure, had some concerns. States the Drill Foreman didn't have any significant. Would like to see cardiology clinic for hfpef. Has a number. Also with ckd.Is starting to get more shortness of breath on an incline. Reviewed echo with normal lv systolic and diastolic dysfunction. BP 171/97 Pulse 80 Temp 36.6 C (97.8 F) (Oral) Ht 166.4 cm (5' 5.5") Wt 61.2 kg (135 lb) SpO2 97% [...] 4.00 k/uL 2.30 1.53 1.79 1.92 1.77 White% % 10.9 10.5 11.8 11.5 12.1 Abs White <0.87 k/uL 0.54 0.42 0.70 0.48 0.51 [...] a consultation with the heart failure clinic [facility]. Referred reviewed last echo with normal left [...] same day or pcp flex slot.. Susannah Capellan MD documented in this encounterSt[facility] History of Present illness Narrative* Win Maria MD - 03/24/2022 11:19 AM EDT [...] She will continue her HEP. RTC prn. Win Maria MD March 24, 2022 11:19 AM documented in this encounterSt. [facility] Miscellaneous Notes* Telephone Encounter - Sally Ha RN - 02/19/2022 3:29 PM EDT Left message to call office. * Telephone Encounter - Sally Ha RN - 02/19/2022 3:16 PM EDT ----- Message from Susannah Capellan MD sent at 02/19/2022 12:36 PM EDT ----- Persistent anemia despite good iron stores. Recommend follow-up with hematology. I referred patientto hematology in 2019, but is not having difficulty finding any note. Find out if she saw them at that time. Please assist in canceling. documented in this encounterSt. [facility]05-[facility] History of Present illness Narrative* Leigh [...] with any questions or concerns. Doing well. Hyacinth Abreu RN February 17, 2022 11:05 AM documented in this encounterSt. [facility]04[facility] History of Present illness Narrative* Kelsi [...] WITH LEVEL OF FUNCTION: Hand Strength L Foam Gun Operator Position 2 (lbs): 36 lbs UE [...] facilitated with verbal, visual and tactile cuing. Self-Intermediate Management: 1: Conitnue with comfort cool for [...] 43 BEN Diaz/Cathryn, OTD documented in this encounterSt. [facility]04-[facility]22 History of Present illness Narrative* DEBORAH Saleem [...] as thumb continues to progress. 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 Pain: Pain Pain Level: [...] Minutes: 40 DEBORAH Saleem documented in this encounterSt. [facility]04-12-[facility]22 History of Present illness Narrative* DEBORAH Saleem - 01/27/2022 12:26 PM EDT The patient did not show up for this appointment. documented in this encounterSt. [facility]04-[facility]-2022 Miscellaneous Notes* Addendum Note - DEBORAH Diaz - 01/20/2022 10:12 AM EDT Addended by: KELSI ROSA on: 01/20/2022 10:12 AM Modules accepted: Orders documented in this encounterSt. [facility]04-05-2022 History of Present illness Narrative* DEBORAH [...] cool for day use. 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 Planned Interventions, Frequency, and Duration: 1x/week, 4 weeks Total Number of Visits Planned: 4 Planned Treatment Interventions: Custom orthosis fabrication;Prefabricated orthosis fitting;Self-residential management (06528);Therapeutic exercise ([id number]) PLAN FOR NEXT VISIT: heat, motion, progress with strength (possible putty) SUBJECTIVE: 8 wks s/p arthroplasty and suspensionplasty of L thumb. Patient has been wearing OTS thumb spica on surgical thumb for day/night use. Reports as time goes on she is able to complete lightdaily tasks as thumb continues to progress. 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 Functional Limitations: lifting;heavy exertion;cleaning;dressing;cooking;carrying;pushing;pulling;gripping;weight [...] Location: Left thumb/wrist Edema Description: Mild Strength: Foam Gun Operator Position 2;Pinch Meter Sensation: Denies tingling or numbness Hand Strength R Foam Gun Operator Position 2 (lbs): 53 lbs L Foam Gun Operator Position 2 (lbs): 20 lbs R [...] in squeezes, pinches, and finger add w/ [place] resistant eggs. Pt returned demo -written handout [...] 8-10 reps, hold for 10 sec. 2: [place] Egg: Squeezes, pinches (each finger), and squeezes [...] Kelsi Rosa OTR/L, OTD documented in this encounterSt. [facility]04-05-[facility]22 History of Present illness Narrative* Leigh [...] me directly with any questions or concerns. Hyacinth Abreu RN January 20, 2022 10:15 AM documented in this encounterSt. [facility]03-08-[facility] History of Past illness Narrative* Problem [...] creatine- 1.1-1.2) CK/CKMB negative. Patient transferred [facility] further evaluation. OSH Echo 10/2019 EF [...] of this encounter (statuses as of 01/30/2023) [facility] illness Narrative* Problem [...] creatine- 1.1-1.2) CK/CKMB negative. Patient transferred to [facility] for further evaluation[facility] OSH Echo 10/2019 EF [...] of this encounter (statuses as of 02/23/2023) [facility] illness Narrative* Problem [...] creatine- 1.1-1.2) CK/CKMB negative. Patient transferred to [facility] for further evaluation. OSH Echo 10/2019 EF [...] of this encounter (statuses as of 03/24/2023) [place] [address]-08-2022 History of Past illness Narrative* Problem Noted [...] creatine- 1.1-1.2) CK/CKMB negative. Patient transferred to [facility] further evaluation. OSH Echo 10/2019 EF [...] of this encounter (statuses as of 04/02/2023) [facility] illness Narrative* Problem [...] creatine- 1.1-1.2) CK/CKMB negative. Patient transferred to [facility] further evaluation. OSH Echo 10/2019 EF [...] of this encounter (statuses as of 04/08/2023) [facility] illness Narrative* Problem [...] creatine- 1.1-1.2) CK/CKMB negative. Patient transferred to [facility] for further evaluation. OSH Echo 10/2019 EF [...] of this encounter (statuses as of 05/04/2023) [facility] Narrative* Problem [...] creatine- 1.1-1.2) CK/CKMB negative. Patient transferred to [facility] for further evaluation. OSH Echo 10/2019 EF [...] of this encounter (statuses as of 07/06/2023) [facility] Narrative* Problem [...] creatine- 1.1-1.2) CK/CKMB negative. Patient transferred to [facility] further evaluation. OSH Echo 10/2019 EF [...] of this encounter (statuses as of 07/16/2023) [facility] Narrative* Problem [...] creatine- 1.1-1.2) CK/CKMB negative. Patient transferred to [facility] for further evaluation. OSH Echo 10/2019 EF [...] of this encounter (statuses as of 08/05/2023) [facility] Narrative* Problem [...] creatine- 1.1-1.2) CK/CKMB negative. Patient transferred to [facility] for further evaluation. OSH Echo 10/2019 EF [...] of this encounter (statuses as of 08/06/2023) [facility] Narrative* Problem [...] creatine- 1.1-1.2) CK/CKMB negative. Patient transferred to [facility] further evaluation. OSH Echo 10/2019 EF [...] of this encounter (statuses as of 08/17/2023) [facility] Narrative* Problem [...] creatine- 1.1-1.2) CK/CKMB negative. Patient transferred to [facility] for further evaluation. OSH Echo 10/2019 EF [...] of this encounter (statuses as of 08/18/2023) [facility] Narrative* Problem [...] creatine- 1.1-1.2) CK/CKMB negative. Patient transferred to [facility] for further evaluation. OSH Echo 10/2019 EF [...] of this encounter (statuses as of 08/20/2023) [facility] Narrative* Problem [...] creatine- 1.1-1.2) CK/CKMB negative. Patient transferred to [facility] for further evaluation. OSH Echo 10/2019 EF [...] of this encounter (statuses as of 08/20/2023) [facility] Narrative* Problem [...] creatine- 1.1-1.2) CK/CKMB negative. Patient transferred to [facility] further evaluation. OSH Echo 10/2019 EF [...] of this encounter (statuses as of 08/20/2023) [facility] Narrative* Problem [...] creatine- 1.1-1.2) CK/CKMB negative. Patient transferred to [facility] for further evaluation. OSH Echo 10/2019 EF [...] of this encounter (statuses as of 08/20/2023) [facility] Narrative* Problem [...] creatine- 1.1-1.2) CK/CKMB negative. Patient transferred [facility] further evaluation. OSH Echo 10/2019 EF [...] of this encounter (statuses as of 08/20/2023) [facility] Narrative* Problem [...] 1.1-1.2) CK/CKMB negative. [facility] transferred [facility]. OSH Echo 10/2019 EF [...] of this encounter (statuses as of 08/22/2023) [facility] Narrative* Problem [...] creatine- 1.1-1.2) CK/CKMB negative. Patient transferred [facility] further evaluation. OSH Echo 10/2019 EF [...] of this encounter (statuses as of 08/31/2023) [facility] Narrative* Problem [...] of this encounter (statuses as of 09/02/2023) [facility] Narrative* Problem [...] creatine- 1.1-1.2) CK/CKMB negative. Patient transferred [facility] further evaluation. OSH Echo 10/2019 EF [...] of this encounter (statuses as of 09/08/2023) [facility] Narrative* Problem [...] creatine- 1.1-1.2) CK/CKMB negative. Patient transferred to [facility] for further evaluation. OSH Echo 10/2019 EF [...] of this encounter (statuses as of 09/10/2023) [facility] Narrative* Problem [...] creatine- 1.1-1.2) CK/CKMB negative. Patient transferred [facility] further evaluation. OSH Echo 10/2019 EF [...] of this encounter (statuses as of 09/21/2023) [facility] Narrative* Problem [...] creatine- 1.1-1.2) CK/CKMB negative. Patient transferred [facility] further evaluation. OSH Echo 10/2019 EF [...] of this encounter (statuses as of 10/01/2023) [facility] Narrative* Problem [...] creatine- 1.1-1.2) CK/CKMB negative. Patient transferred to [facility] for further evaluation. OSH Echo 10/2019 EF [...] of this encounter (statuses as of 10/08/2023) [facility] Narrative* Problem [...] creatine- 1.1-1.2) CK/CKMB negative. Patient transferred to [facility] further evaluation. OSH Echo 10/2019 EF [...] of this encounter (statuses as of 12/20/2023) [facility] Narrative* Problem [...] creatine- 1.1-1.2) CK/CKMB negative. Patient transferred [facility] further evaluation. OSH Echo 10/2019 EF [...] of this encounter (statuses as of 12/31/2023) [facility] Narrative* Problem [...] 1.1-1.2) CK/CKMB negative. [facility] transferred [facility]. OSH Echo 10/2019 EF [...] of this encounter (statuses as of 12/31/2023) [facility] Narrative* Problem [...] creatine- 1.1-1.2) CK/CKMB negative. Patient transferred to [facility] further evaluation. OSH Echo 10/2019 EF [...] of this encounter (statuses as of 01/05/2024) [facility] Narrative* Problem [...] creatine- 1.1-1.2) CK/CKMB negative. Patient transferred to [facility] for further evaluation. OSH Echo 10/2019 EF [...] of this encounter (statuses as of 01/10/2024) [facility] Narrative* Problem [...] creatine- 1.1-1.2) CK/CKMB negative. Patient transferred [facility] further evaluation. OSH Echo 10/2019 EF [...] of this encounter (statuses as of 01/12/2024) [facility] Narrative* Problem [...] 1.1-1.2) CK/CKMB negative. Patient transferred [facility] further evaluation. OSH Echo 10/2019 EF [...] of this encounter (statuses as of 01/18/2024) [facility] Narrative* Problem [...] creatine- 1.1-1.2) CK/CKMB negative. Patient transferred [facility] further evaluation. OSH Echo 10/2019 EF [...] of this encounter (statuses as of 01/29/2024) [facility] Present [facility] Narrative* Shavon Worrell, RT(R) - 08/18/2021 11:30 AM EDT Radiology Service Progress Note PATIENT NAME: Zneaida Evans DATE OF SERVICE: August 18, 2021 [...] 18, 2021 11:51 AM documented in this encounterSt. [facility]03-[facility] History of Present illness Narrative* Maria E Adams (Rt), Tech - 12/24/2020 1:20 PM [...] 24, 2020 1:12 PM documented in this encounterSt. [facility]10[facility] History of Present illness Narrative* July [...] 30, 2020 12:14 PM documented in this encounterSt. [facility]03[facility] History of Past illness Narrative* Problem [...] creatine- 1.1-1.2) CK/CKMB negative. Patient transferred [facility] further evaluation. OSH Echo 10/2019 EF [...] of this encounter (statuses as of 01/20/2022) [facility] Narrative* Problem [...] creatine- 1.1-1.2) CK/CKMB negative. Patient transferred to [facility] further evaluation. OSH Echo 10/2019 EF [...] of this encounter (statuses as of 01/20/2022) [facility] Narrative* Problem [...] 1.1-1.2) CK/CKMB negative. [facility] transferred [facility] further [facility]. OSH Echo 10/2019 EF [...] of this encounter (statuses as of 01/27/2022) [facility] Narrative* Problem [...] creatine- 1.1-1.2) CK/CKMB negative. Patient transferred [facility] for further evaluation. OSH Echo 10/2019 EF 65%, stage 1 diastolic dysfunction, mild TR Plan cycle enzymes CK 150 Trop T 0.053 BP management treatment of RBIGHT improved off cozaar and maxzide creat 1.35 [...] of this encounter (statuses as of 02/04/2022) [facility] Narrative* Problem [...] creatine- 1.1-1.2) CK/CKMB negative. Patient transferred to [facility] further evaluation. OSH Echo 10/2019 EF [...] of this encounter (statuses as of 02/10/2022) [facility] Narrative* Problem [...] 1.1-1.2) CK/CKMB negative. Patient transferred [facility] further evaluation. OSH Echo 10/2019 EF [...] of this encounter (statuses as of 02/17/2022) [facility] Narrative* Problem [...] 1.1-1.2) CK/CKMB negative. Patient transferred [facility] further evaluation. OSH Echo 10/2019 EF [...] of this encounter (statuses as of 02/19/2022) [facility] Narrative* Problem [...] creatine- 1.1-1.2) CK/CKMB negative. Patient transferred [facility] further evaluation. OSH Echo 10/2019 EF [...] of this encounter (statuses as of 03/24/2022) [facility] Narrative* Problem [...] creatine- 1.1-1.2) CK/CKMB negative. Patient transferred to [facility] for further evaluation. OSH Echo 10/2019 EF [...] of this encounter (statuses as of 04/14/2022) [facility] Narrative* Problem [...] creatine- 1.1-1.2) CK/CKMB negative. Patient transferred [facility] further evaluation. OSH Echo 10/2019 EF [...] of this encounter (statuses as of 04/17/2022) [facility] Narrative* Problem [...] creatine- 1.1-1.2) CK/CKMB negative. Patient transferred to [facility] for further evaluation. OSH Echo 10/2019 EF [...] of this encounter (statuses as of 05/14/2022) [facility] Narrative* Problem [...] creatine- 1.1-1.2) CK/CKMB negative. Patient transferred to [facility] further evaluation. OSH Echo 10/2019 EF [...] of this encounter (statuses as of 05/18/2022) [facility] Narrative* Problem [...] creatine- 1.1-1.2) CK/CKMB negative. Patient transferred to [facility] for further evaluation. OSH Echo 10/2019 EF [...] of this encounter (statuses as of 2022) [facility] Narrative* Problem [...] creatine- 1.1-1.2) CK/CKMB negative. Patient transferred to [facility] further evaluation. OSH Echo 10/2019 EF [...] of this encounter (statuses as of 06/01/2022) [facility] Narrative* Problem [...] 1.1-1.2) CK/CKMB negative. [facility] transferred [facility] further [facility]. OSH Echo 10/2019 EF [...] of this encounter (statuses as of 07/16/2022) [facility] Narrative* Problem [...] creatine- 1.1-1.2) CK/CKMB negative. Patient transferred to [facility] for further evaluation. OSH Echo 10/2019 EF [...] of this encounter (statuses as of 07/22/2022) [facility] Narrative* Problem [...] creatine- 1.1-1.2) CK/CKMB negative. Patient transferred to [facility] further evaluation. OSH Echo 10/2019 EF [...] of this encounter (statuses as of 08/06/2022) [facility] Narrative* Problem [...] creatine- 1.1-1.2) CK/CKMB negative. Patient transferred to [facility] for further evaluation. OSH Echo 10/2019 EF [...] of this encounter (statuses as of 08/08/2022) [facility] Narrative* Problem [...] 1.1-1.2) CK/CKMB negative. Patient transferred [facility] further evaluation. OSH Echo 10/2019 EF [...] of this encounter (statuses as of 09/02/2022) [facility] Narrative* Problem [...] creatine- 1.1-1.2) CK/CKMB negative. Patient transferred to [facility] for further evaluation. OSH Echo 10/2019 EF [...] of this encounter (statuses as of 09/11/2022) [facility] Narrative* Problem [...] creatine- 1.1-1.2) CK/CKMB negative. Patient transferred to [facility] for further evaluation. OSH Echo 10/2019 EF [...] of this encounter (statuses as of 09/14/2022) [facility] Narrative* Problem [...] creatine- 1.1-1.2) CK/CKMB negative. Patient transferred to [facility] for further evaluation. OSH Echo 10/2019 EF [...] of this encounter (statuses as of 10/01/2022) [facility] N[facility]* Problem [...] creatine- 1.1-1.2) CK/CKMB negative. Patient transferred to [facility] for further evaluation. OSH Echo 10/2019 EF [...] of this encounter (statuses as of 10/01/2022) [facility] N[facility]ative* Problem [...] creatine- 1.1-1.2) CK/CKMB negative. Patient transferred to [facility] further evaluation. OSH Echo 10/2019 EF [...] of this encounter (statuses as of 10/06/2022) [facility] N[facility]ative* Problem [...] 1.1-1.2) CK/CKMB negative. Patient transferred [facility] further [facility]. OSH Echo 10/2019 EF [...] of this encounter (statuses as of 10/11/2022) [facility] N[facility]ative* Problem [...] 1.1-1.2) CK/CKMB negative. Patient transferred [facility] further evaluation. OSH Echo 10/2019 EF [...] of this encounter (statuses as of 10/29/2022) [facility]* Problem [...] creatine- 1.1-1.2) CK/CKMB negative. Patient transferred [facility] further evaluation. OSH Echo 10/2019 EF [...] of this encounter (statuses as of 11/20/2022) [place] [address]-06-2020 History of Past illness Narrative* Problem Noted [...] creatine- 1.1-1.2) CK/CKMB negative. Patient transferred to [facility] further evaluation. OSH Echo 10/2019 EF [...] of this encounter (statuses as of 11/24/2022) [facility] N[facility]* Problem [...] creatine- 1.1-1.2) CK/CKMB negative. Patient transferred to [facility] further evaluation. OSH Echo 10/2019 EF [...] of this encounter (statuses as of 01/06/2023) [facility]* Problem [...] creatine- 1.1-1.2) CK/CKMB negative. Patient transferred to [facility] further evaluation. OSH Echo 10/2019 EF [...] of this encounter (statuses as of 01/08/2023) [facility] Thumb pain, left- Primary Primary osteoarthritis of first carpometacarpal joint of left hand Primary localized osteoarthrosis, hand [facility] Primary osteoarthritis of first carpometacarpal joint of left hand- Primary Primary localized osteoarthrosis, hand [facility] Thumb pain, left- Primary NO SHOW [facility] Thumb pain, left- Primary Primary osteoarthritis of first carpometacarpal joint of left hand Primary localized osteoarthrosis, hand [facility] Diagnosis Thumb pain, left- Primary Primary osteoarthritis of first carpometacarpal joint of left hand Primary localized osteoarthrosis, hand [facility] Diagnosis Primary osteoarthritis of first carpometacarpal joint of left hand- Primary Primary localized osteoarthrosis, hand [facility] Diagnosis Primary osteoarthritis of first carpometacarpal joint of left hand- Primary Primary localized osteoarthrosis, hand [facility] Diagnosis Anemia, unspecified type- Primary 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 disease, or chronic kidney disease (HCC) Unspecified hypertensive heart and kidney disease with heart failure and with chronic kidney disease stage I through stage IV, or unspecified Hypothyroidism, unspecified type [facility] Diagnosis Anemia due to stage 3b chronic kidney disease (HCC)- Primary Anemia, unspecified type [facility] Diagnosis Telogen effluvium- Primary Seborrheic dermatitis Seborrheic dermatitis, unspecified Encounter for medication monitoring Encounter for therapeutic drug monitoring Verruca vulgaris Viral warts, unspecified Hypothyroidism, unspecified type [facility] Diagnosis Chronic heart failure with preserved [...] Unspecified essential hypertension [facility] Diagnosis Chronic heart failure with preserved ejection fraction (HFpEF) (HCC)- Primary [facility]* Diagnosis White coat syndrome with hypertension- Primary [facility]* Diagnosis Encounter for immunization- Primary Need [...] IV, or unspecified [facility] Diagnosis Telogen effluvium- Primary [facility] Diagnosis Chronic heart failure with preserved ejection fraction (HFpEF) (HCC)- Primary Essential hypertension Unspecified essential hypertension [facility] Diagnosis Anemia due to stage 3b chronic kidney disease (HCC)- Primary [facility]* Diagnosis Anemia due to stage 3b chronic kidney disease (HCC)- Primary [facility] Diagnosis Anemia due to stage 3b chronic kidney disease (HCC)- Primary [facility] Pain with urination- Primary Renal colic [facility]* Diagnosis Chronic heart failure with preserved ejection fraction (HCC)- [facility] Trigger thumb of left hand- Primary Trigger finger (acquired) [facility] Diagnosis Fibrocystic breast changes of both breasts- Primary Dense breast Inconclusive mammogram Personal history of breast cancer Personal history of malignant neoplasm of breast Encounter for screening mammogram for [facility] cancer [facility] Diagnosis Difficulty swallowing pills- Primary Other symptoms involving digestive system Pharyngitis, unspecified etiology [facility] Diagnosis Chronic back pain, unspecified back location, unspecified back pain laterality- Primary [facility]* Diagnosis Rib pain on right side- Primary Chest pain, unspecified Epigastric abdominal tenderness without rebound tenderness Thoracogenic scoliosis, unspecified spinal region [facility]* Diagnosis Palpitation- Primary Palpitations [facility]* Diagnosis Acute right-sided thoracic back pain- Primary [facility] Diagnosis Medicare annual wellness visit, subsequent- Primary Routine general medical examination at a health care facility Asymptomatic postmenopausal state Thoracogenic scoliosis, unspecified spinal region Chronic thoracic back pain, unspecified back pain laterality Decreased hearing of both ears Anemia due to stage 3b chronic kidney disease (HCC) Epigastric pain Abdominal pain, epigastric Hypothyroidism, unspecified type [facility]* Diagnosis Asymptomatic postmenopausal state Medicare annual wellness visit, subsequent Routine general medical examination at a health care facility [facility] Diagnosis 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 Diagnosis Epigastric abdominal tenderness without rebound tenderness [facility]* Diagnosis Medicare annual wellness visit, subsequent Routine general medical examination at a health care facility Epigastric pain Abdominal pain, epigastric [facility] Diagnosis Urinary retention Retention of urine, unspecified [facility] Diagnosis Exertional dyspnea Other dyspnea and respiratory abnormality [facility] this 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 Diagnosis Chronic diastolic (congestive) heart failure (HCC)- Primary 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 Diagnosis Essential hypertension Unspecified essential hypertension [facility] this [facility] noteNo assessment information availableWKettering [facility] Work Phone: Evaluation note* Diagnosis Personal history of malignant neoplasm of breast- Primary Encounter for screening mammogram for malignant neoplasm of breast Other screening mammogram [facility] Diagnosis Encounter for screening mammogram for breast cancer- Primary [facility] Diagnosis Essential hypertension Unspecified essential hypertension [facility] Diagnosis Situational depression- Primary Adjustment disorder with depressed mood [facility] Diagnosis Abnormal mammogram- Primary Abnormal mammogram, unspecified Fibrocystic breast changes of both breasts Dense breast Inconclusive mammogram Personal history of breast cancer Personal history of malignant neoplasm of breast 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 Diagnosis Essential hypertension Unspecified essential hypertension [facility] Diagnosis Situational depression- Primary Adjustment disorder [...] disease (HCC) (HCC) [facility]* Diagnosis Chronic diastolic (congestive) heart failure (HCC)- Primary [facility]* Diagnosis Hypothyroidism, unspecified type [facility] Diagnosis Essential hypertension- Primary Unspecified essential hypertension Atherosclerosis of [place] coronary artery of [place] heart without angina pectoris Changes in vascular [...] diastolic (congestive) heart failure (HCC) Atherosclerosis of [place] coronary artery of [place] heart without angina pectoris Essential hypertension Unspecified [...] chronic kidney disease (HCC) (HCC) Atherosclerosis of [place] coronary artery of [place] heart without angina pectoris Exertional dyspnea Other [...] arm and forearm 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 pectoris Changes in vascular [...] diastolic (congestive) heart failure (HCC) Atherosclerosis of [place] coronary artery of [place] heart without angina pectoris Essential hypertension Unspecified [...] chronic kidney disease (HCC) (HCC) Atherosclerosis of [place] coronary artery of [place] heart without angina pectoris Exertional dyspnea Other [...] mood Dysuria- Primary 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 pectoris Changes in vascular [...] diastolic (congestive) heart failure (HCC) Atherosclerosis of [place] coronary artery of [place] heart without angina pectoris Essential hypertension Unspecified [...] chronic kidney disease (HCC) (HCC) Atherosclerosis of [place] coronary artery of [place] heart without angina pectoris Exertional dyspnea Other [...] Urinary frequency- Primary 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 pectoris Changes in vascular [...] diastolic (congestive) heart failure (HCC) Atherosclerosis of [place] coronary artery of [place] heart without angina pectoris Essential hypertension Unspecified [...] chronic kidney disease (HCC) (HCC) Atherosclerosis of [place] coronary artery of [place] heart without angina pectoris Exertional dyspnea Other [...] for breast cancer 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 pectoris Changes in vascular [...] diastolic (congestive) heart failure (HCC) Atherosclerosis of [place] coronary artery of [place] heart without angina pectoris Essential hypertension Unspecified [...] chronic kidney disease (HCC) (HCC) Atherosclerosis of [place] coronary artery of [place] heart without angina pectoris Exertional dyspnea Other [...] hematuria Acute cystitis 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 pectoris Changes in vascular [...] diastolic (congestive) heart failure (HCC) Atherosclerosis of [place] coronary artery of [place] heart without angina pectoris Essential hypertension Unspecified [...] chronic kidney disease (HCC) (HCC) Atherosclerosis of [place] coronary artery of [place] heart without angina pectoris Exertional dyspnea Other [...] with depressed mood 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 pectoris Changes in vascular [...] diastolic (congestive) heart failure (HCC) Atherosclerosis of [place] coronary artery of [place] heart without angina pectoris Essential hypertension Unspecified [...] chronic kidney disease (HCC) (HCC) Atherosclerosis of [place] coronary artery of [place] heart without angina pectoris Exertional dyspnea Other [...] IV, or unspecified 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 pectoris Changes in vascular [...] diastolic (congestive) heart failure (HCC) Atherosclerosis of [place] coronary artery of [place] heart without angina pectoris Essential hypertension Unspecified [...] chronic kidney disease (HCC) (HCC) Atherosclerosis of [place] coronary artery of [place] heart without angina pectoris Exertional dyspnea Other [...] and respiratory abnormality 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 pectoris Changes in vascular [...] diastolic (congestive) heart failure (HCC) Atherosclerosis of [place] coronary artery of [place] heart without angina pectoris Essential hypertension Unspecified [...] chronic kidney disease (HCC) (HCC) Atherosclerosis of [place] coronary artery of [place] heart without angina pectoris Exertional dyspnea Other [...] of urination- Primary 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 pectoris Changes in vascular [...] diastolic (congestive) heart failure (HCC) Atherosclerosis of [place] coronary artery of [place] heart without angina pectoris Essential hypertension Unspecified [...] chronic kidney disease (HCC) (HCC) Atherosclerosis of [place] coronary artery of [place] heart without angina pectoris Exertional dyspnea Other [...] with depressed mood 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 pectoris Changes in vascular [...] diastolic (congestive) heart failure (HCC) Atherosclerosis of [place] coronary artery of [place] heart without angina pectoris Essential hypertension Unspecified [...] chronic kidney disease (HCC) (HCC) Atherosclerosis of [place] coronary artery of [place] heart without angina pectoris Exertional dyspnea Other [...] with depressed mood 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 pectoris Changes in vascular [...] diastolic (congestive) heart failure (HCC) Atherosclerosis of [place] coronary artery of [place] heart without angina pectoris Essential hypertension Unspecified [...] chronic kidney disease (HCC) (HCC) Atherosclerosis of [place] coronary artery of [place] heart without angina pectoris Exertional dyspnea Other [...] heart failure (HCC) 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 pectoris Changes in vascular [...] diastolic (congestive) heart failure (HCC) Atherosclerosis of [place] coronary artery of [place] heart without angina pectoris Essential hypertension Unspecified [...] chronic kidney disease (HCC) (HCC) Atherosclerosis of [place] coronary artery of [place] heart without angina pectoris Exertional dyspnea Other [...] Unspecified essential hypertension 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 pectoris Changes in vascular [...] diastolic (congestive) heart failure (HCC) Atherosclerosis of [place] coronary artery of [place] heart without angina pectoris Essential hypertension Unspecified [...] chronic kidney disease (HCC) (HCC) Atherosclerosis of [place] coronary artery of [place] heart without angina pectoris Exertional dyspnea Other [...] failure (HCC)- Primary 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 pectoris Changes in vascular [...] diastolic (congestive) heart failure (HCC) Atherosclerosis of [place] coronary artery of [place] heart without angina pectoris Essential hypertension Unspecified [...] chronic kidney disease (HCC) (HCC) Atherosclerosis of [place] coronary artery of [place] heart without angina pectoris Exertional dyspnea Other [...] Unspecified essential hypertension 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 pectoris Changes in vascular [...] diastolic (congestive) heart failure (HCC) Atherosclerosis of [place] coronary artery of [place] heart without angina pectoris Essential hypertension Unspecified [...] chronic kidney disease (HCC) (HCC) Atherosclerosis of [place] coronary artery of [place] heart without angina pectoris Exertional dyspnea Other [...] (HCC) (HCC)- Primary 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 pectoris Changes in vascular [...] diastolic (congestive) heart failure (HCC) Atherosclerosis of [place] coronary artery of [place] heart without angina pectoris Essential hypertension Unspecified [...] chronic kidney disease (HCC) (HCC) Atherosclerosis of [place] coronary artery of [place] heart without angina pectoris Exertional dyspnea Other [...] Unspecified essential hypertension 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 pectoris Changes in vascular [...] diastolic (congestive) heart failure (HCC) Atherosclerosis of [place] coronary artery of [place] heart without angina pectoris Essential hypertension Unspecified [...] chronic kidney disease (HCC) (HCC) Atherosclerosis of [place] coronary artery of [place] heart without angina pectoris Exertional dyspnea Other [...] mood Telogen effluvium 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 Exertional dyspnea Other [...] pain laterality- Primary 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 Exertional dyspnea Other [...] IV, or unspecified 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- Primary Chronic diastolic [...] * Assessment & Plan Note - Susannah Capellan MD - 03/27/2025 4:38 PM EDT Associated [...] has been stable. 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- Primary Chronic diastolic [...] kidney disease (HCC) [facility] Diagnosis Onset Date Resolution Status Admit Date Chest pressure acute April 09, 2025 11:42pm Elevated troponin acute April 092024 11:42pm Chronic kidney disease chronic Ju ne 2024 11:42pm HTN (hypertension) chronic March 192024 11:42pm [facility] Work Phone: Evaluation note* Diagnosis Essential hypertension- Primary Unspecified essential hypertension Atherosclerosis of [place] coronary artery of [place] heart without angina pectoris Changes in vascular [...] diastolic (congestive) heart failure (HCC) Atherosclerosis of [place] coronary artery of [place] heart without angina pectoris Essential hypertension Unspecified [...] 3b chronic kidney disease (HCC) Atherosclerosis of [place] coronary artery of [place] heart without angina pectoris Exertional dyspnea Other [...] Adjustment disorder with depressed mood Atherosclerosis of [place] coronary artery of [place] heart without angina pectoris- Primary Chronic diastolic [...] essential hypertension NSTEMI (non-ST elevated myocardial infarction) ([facility])- Primary Acute myocardial infarction, subendocardial infarction, episode of care unspecified Pulmonary nodules Other nonspecific abnormal finding of lung field Lung nodules Other nonspecific abnormal finding of lung field Acute deep vein thrombosis (DVT) of calf muscle vein of left lower extremity (HCC) Demand ischemia (HCC) Other acute and subacute form of ischemic heart disease Nausea Nausea alone Dizziness Dizziness and giddiness 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- Primary Chronic diastolic (congestive) heart failure (HCC) Anemia due to stage 3b chronic kidney disease (HCC) Decreased hearing of both ears Medicare annual wellness visit, subsequent [facility] Epigastric pain Abdominal pain, epigastric [...] giddiness Hypoxia Hypoxemia 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- Primary Chronic diastolic (congestive) heart failure (HCC) Anemia due to stage 3b chronic kidney disease (HCC) Decreased hearing of both ears Medicare annual wellness visit, subsequent Routine general [facility] at a [facility] Epigastric pain Abdominal pain, epigastric [...] or unspecified Essential hypertension Unspecified essential hypertension Mild pulmonary hypertension (HCC)- Primary Other chronic pulmonary heart diseases Hypoxia Hypoxemia SOB (shortness of breath) Shortness of breath Kidney lesion, [place], left Unspecified disorder of kidney and ureter 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- Primary Chronic diastolic (congestive) heart failure (HCC) Anemia due to stage 3b chronic kidney disease (HCC) Decreased hearing of both ears Medicare annual wellness visit, subsequent Routine general [facility] at a [facility] Epigastric pain Abdominal pain, epigastric [...] failure (HCC)- 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- Primary Chronic diastolic (congestive) heart failure (HCC) Anemia due to stage 3b chronic kidney disease (HCC) Decreased hearing of both ears Medicare annual wellness visit, subsequent [facility] Epigastric pain Abdominal pain, epigastric [...] or unspecified Essential hypertension Unspecified essential hypertension Kidney lesion, [place], left Unspecified disorder of kidney and ureter 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- Primary Chronic diastolic [...] or unspecified Essential hypertension Unspecified essential hypertension Acquired complex cyst of kidney- Primary Other specified disorders of kidney and ureter 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 disease, or chronic kidney disease (HCC) Unspecified hypertensive heart and kidney disease with heart failure and with chronic kidney disease stage I through stage IV, or unspecified Atherosclerosis of [place] coronary artery of [place] heart without angina pectoris Screening for depression Encounter for screening examination for other mental health and behavioral disorders Left ventricular diastolic dysfunction, NYHA class 1 Heart disease, unspecified Mild pulmonary hypertension (HCC) Other chronic pulmonary heart diseases History of tobacco use Personal history of tobacco use, presenting hazards to health Hypoxia Hypoxemia 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- Primary Chronic diastolic [...] or unspecified Essential hypertension Unspecified essential hypertension Atherosclerosis of [place] coronary artery of [place] heart without angina pectoris- Primary 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 disease, or chronic kidney disease (HCC) Unspecified hypertensive heart and kidney disease with heart failure and with chronic kidney disease stage I through stage IV, or unspecified Kidney lesion, [place], left Unspecified disorder of kidney and ureter IPMN (intraductal papillary mucinous neoplasm) Neoplasm of unspecified nature of digestive system Hyperkalemia Hyperpotassemia Hypoxia Hypoxemia Left hip pain Pain in joint, pelvic region and thigh Trochanteric bursitis of left hip Enthesopathy of hip region Essential hypertension Unspecified essential hypertension 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- Primary Chronic diastolic [...] or unspecified Essential hypertension Unspecified essential hypertension Abnormal mammogram- Primary Abnormal mammogram, unspecified Encounter for screening mammogram for high-risk patient Fibrocystic breast changes of both breasts Dense breast Inconclusive mammogram Personal history of breast cancer Personal history of malignant neoplasm of breast Encounter for screening mammogram for high-risk patient [facility] Additional Instructions Please return for any worsening of your symptoms. Stay well-hydrated.[facility] Work Phone: Hospital Discharge instructionsAdditional Instructions ADDITIONAL FOLLOW-UP/EVALUATION: --ED evaluation with chest x-ray with no acute cardiopulmonary findings, chest CTA with no pulmonary emboli with a left kidney indeterminate lesion, chronic and axillary findings unchanged, cardiac enzymes initially 89 with repeat 84 not concerning given recent cardiac catheterization with no acute coronary disease noted, BNP 614. --Initial ED renal function included BUN/creatinine 44/1.78, GFR 27 with baseline creatinine 1.1-1.3 but has vacillated from review of previous labs. Repeat renal function trending improved with 04/28/25 BUN/creatinine 34/1.17, GFR 45--> and most recently on day of discharge 04/29/25 BUN/creatinine 27/1.12, CFR 47. Please have repeat basic metabolic panel outpatient at follow-up with your primary care physician. --CTA Lung w/ incidentally noted left kidney indeterminate lesion. Please have follow-up outpatient nonemergent evaluation to determine if cystic in nature. --Given presentation with notable orthostatic vital signs (significant changes in heart rate/blood pressure with changes from laying, sitting to standing) with acute kidney injury suspected secondary to over diuresis your medications including indapamide and dapagliflozin were temporarily held. You were started on Procardia to assist with blood pressure control in the interim. The technical support agent at discharge has recommended continuation of your dapagliflozin but discontinuation of indapamide as well as change of your Eliquis to 2.5 mg p.o. twice daily in accordance with altered dosing based on age and creatinine function. We have also prescribed Procardia and recommend given your elevated blood pressure above parameters that you continue this medication until reevaluation by your technical support agent with further changes per their discretion. --The medication hold of the indapamide, change of Eliquis to renally dosing of 2.5 mg twice daily and initiated medication Procardia may be reassessed outpatient with follow-up with your technical support agent and further changes made depending on your repeat vital sign assessments at that time as well as repeat basic metabolic function assessment per your primary care physician. --Please also have repeat orthostatic vital sign assessment with your primary care and technical support agent at follow-up.[facility] Work Phone: Reason for referral (narrative)* Diagnostic Procedure Only (Routine) - Authorized Specialty Diagnoses / Procedures Referred By Tanya t Referred To Contact [facility] IMAG[facility] Diagnoses Urinary retention Procedures US PELVIS BLADDER US PELVIC NONOBSTETRIC IMAGE DCMTN LIMITED/F/U Susannah Capellan MD [address] [place] [address] [facility] Referral ID Status Reason Start Date Expiration Date Visits Requested Visits Authorized [id number] Authorized Auto-Generat ed Referral 2 10/31/2023 1 1 * Diagnostic Procedure Only (Routine) - Authorized Specialty Diagnoses / Procedures Referred By Contac t Referred To Contact [facility] IM[facility] Diagnoses Urinary retention Procedures US KIDNEY/BLADDER US RETROPERITONEAL REAL TIME W/IMAGE COMPLETE Susannah Capellan MD [address] [place] [address] [facility] Referral ID Status Reason Start Date Expiration Date Visits Requested Visits Authorized [id number] Authorized Auto-Generat ed Referral 2 10/31/2023 1 1 [facility] for referral (narrative)* Outpatient Procedure (Routine) - Authorized Specialty Diagnoses / Procedures Referred By Contac t Referred To Contact [facility] Diagnoses Chronic heart failure with preserved ejection fraction (HCC) Procedures ECHO ECHO TTHRC R-T 2D W/WOM-MODE COMPL SPEC&COLR D Le Orourke APRN.CNP [address] [place] [address] [facility] [place] [address] Referral ID Status Reason Start Date Expiration Date Visits Requested Visits Authorized [id number] Authorized Auto-Generat ed Referral 04/02/2023 11/20/2023 1 1 [facility] for referral (narrative)* Diagnostic Procedure Only (Routine) - Pending Review Specialty Diagnoses / Procedures Referred By Contac t Referred To Contact [facility] Diagnoses Encounter for screening mammogram for breast cancer Procedures NICOLE SCREENING W MICHELLE SCREENING DIGITAL BREAST TOMOSYNTHESIS BI SCREENING MAMMOGRAPHY BI 2-VIEW BREAST INC CAD Jitendra Escobedo APRN.BUSINESS PROFESSOR [address] [place] [address] [facility] [address] [place] [address] Referral ID Status Reason Start Date Expiration Date Visits Requested Visits Authorized [id number] Pending Review Auto-Generat ed Referral 01/05/2023 02/04/2024 1 1 [facility] for referral (narrative)* Diagnostic Procedure Only (Routine) - Pending Review Specialty Diagnoses / Procedures Referred By Tanya rodriguez Referred To Contact [facility] Diagnoses Medicare annual wellness visit, subsequent Epigastric pain Procedures NM HEPATOBILIARY W EF AND/OR RX HEPATOBIL SYST IMAG INC GB W/PHARMA INTERVENJ Susannah Capellan MD [address] [place] [address] [facility] [address] [place] [address] Referral ID Status Reason Start Date Expiration Date Visits Requested Visits Authorized [id number] Pending Review Auto-Generat ed Referral 07/05/2023 08/03/2024 1 1 * Consult, Test, Treat (Routine) - Authorized Specialty Diagnoses / Procedures Referred By Tanya rodriguez Referred To Contact Diagnoses Medicare annual wellness visit, subsequent Decreased hearing of both ears Procedures HEARING TEST/AUDIOGRAM COMPRE AUDIOMETRY THRESHOLD EVAL Susannah Christine MD [address] [place] [address] [facility] [address] [place] [address] Referral ID Status Reason Start Date Expiration Date Visits Requested Visits Authorized [id number] Authorized Auto-Generat ed Referral 07/05/2023 10/03/2023 1 1 * Consult, Test, Treat (Routine) - Authorized Specialty Diagnoses / Procedures Referred By Contac t Referred To Contact [facility] [place] Diagnoses Medicare annual wellness visit, subsequent Thoracogenic scoliosis, unspecified spinal region Chronic thoracic back pain, unspecified back pain laterality Procedures CONSULT TO [facility]/OUTPATIENT [facility] MDM 60-74 MINUTES Susannah Capellan MD [address] [place] [address] Referral ID Status Reason Start Date Expiration Date Visits Requested Visits Authorized [id number] Authorized PCP Requested Referral 07/05/2023 07/04/2024 1 1 [facility] for referral (narrative)* Diagnostic Procedure Only (Routine) - Closed Specialty Diagnoses / Procedures Referred By Contac t Referred To Contact XR IMAGING Diagnoses Acute right-sided thoracic back pain Procedures XR THORACIC GENERAL 3V AP/LAT/SWIMMERS RADEX SPINE THOR[facility]IC 3 VIEWS Susannah Capellan MD [address] [place] [address] [place] [address] Referral ID Status Reason Start Date Expiration Date V isits Requested Visits Authorized [id number] Closed Auto-Generate d Referral 03/08/2023 04/06/2024 1 1 * Diagnostic Procedure Only (Routine) - Closed Specialty Diagnoses / Procedures Referred By Contac t Referred To Contact XR IMAGING Diagnoses Acute right-sided thoracic back pain Procedures XR RIBS/CHEST 3V AP RIB/OBLS/CXR RIGHT RADEX RIBS UNI W/POSTEROANT CH MINIMUM 3 VIEWS Susannah Capellan MD [address] [place] [address] [place] [address] Referral ID Status Reason Start Date Expiration Date V isits Requested Visits Authorized [id number] Closed Auto-Generate d Referral 03/08/2023 04/06/2024 1 1 [facility] for referral (narrative)* Diagnostic Procedure Only (Routine) - Closed Specialty Diagnoses / Procedures Referred By Contac t Referred To Contact [facility] Diagnoses Epigastric abdominal tenderness without rebound tenderness Procedures US ABD RIGHT UPPER QUADRANT US ABDOMINAL REAL TIME W/IMAGE LIMITED Susannah Capellan MD [address] [place] [address] [place] [address] Referral ID Status Reason Start Date Expiration Date V isits Requested Visits Authorized [id number] Closed Auto-Generate d Referral 03/23/2023 04/21/2024 1 1 T [facility] for referral (narrative)* Diagnostic Procedure Only (Routine) - Closed Specialty Diagnoses / Procedures Referred By Contac t Referred To Contact [facility]LEC[facility] Diagnoses Medicare annual wellness visit, subsequent Epigastric pain Procedures NM HEPATOBILIARY W EF AND/OR RX HEPATOBIL SYST IMAG INC GB W/PHARMA INTERVENJ Susannah Capellan MD [address] [place] [address] [facility] [address] [place] [address] Referral ID Status Reason Start Date Expiration Date V isits Requested Visits Authorized [id number] Closed Auto-Generate d Referral 07/05/2023 08/03/2024 1 1 [facility] for referral (narrative)* Diagnostic Procedure Only (Routine) - Closed Specialty Diagnoses / Procedures Referred By Contac t Referred To Contact US IMAGING Diagnoses Urinary retention Procedures US KIDNEY/BLADDER US RETROPERITONEAL REAL TIME W/[place] [address] [place] [address] Us Imaging [place] [address] Referral ID Status Reason Start Date Expiration Date V isits Requested Visits Authorized [id number] Closed Auto-Generate d Referral 10/01/2022 10/31/2023 1 1 [facility] for referral (narrative)* Diagnostic Procedure Only (Routine) - Pending Review Specialty Diagnoses / Procedures Referred By Tanya rodriguez Referred To Contact BR IMAGING Diagnoses Personal history of malignant neoplasm of breast Encounter for screening mammogram for malignant neoplasm of breast Procedures NICOLE SCREENING W MICHELLE SCREENING DIGITAL BREAST TOMOSYNTHESIS BI SCREENING MAMMOGRAPHY BI 2-VIEW BREAST INC Eve Gaines PA-C [facility] [place] [address] Br Imaging [address] [place] [address] Referral ID Status Reason Start Date Expiration Date Visits Requested Visits Authorized [id number] Pending Review Auto-Generat ed Referral 12/20/2023 01/18/[address] [facility] Diagnostic Procedure Only (Routine) - Authorized Specialty Diagnoses / Procedures Referred By Tanya rodriguez Referred To Contact BR IMAGING Diagnoses Encounter for screening mammogram for breast cancer Procedures NICOLE SCREENING W MICHELLE SCREENING DIGITAL BREAST TOMOSYNTHESIS BI SCREENING MAMMOGRAPHY BI 2-VIEW BREAST INC CAD Jitendra Escobedo APRN.BUSINESS PROFESSOR [address] [place] [address] Br Imaging [address] [place] [address] Referral ID Status Reason Start Date Expiration Date Visits Requested Visits Authorized [id number] Authorized Auto-Generat ed Referral 12/31/2023 01/29/2025 1 1 [facility] for referral (narrative)* Diagnostic Procedure Only (Routine) - Authorized Specialty Diagnoses / Procedures Referred By Tanya rodriguez Referred To Contact BR IMAGING Diagnoses Abnormal mammogram Procedures US BREAST LTD RIGHT US BREAST UNI REAL TIME WITH IMAGE LIMITED Jitendra Escobedo APRN.CNP [address] [place] [address] Br Imaging [address] [place] [address] Referral ID Status Reason Start Date Expiration Date Visits Requested Visits Authorized [id number] Authorized Auto-Generat ed Referral 01/10/2024 02/08/2025 1 1 * Diagnostic Procedure Only (Routine) - Authorized Specialty Diagnoses / Procedures Referred By Contac t Referred To Contact BR IMAGING Diagnoses Abnormal mammogram Procedures NICOLE DIAGNOSTIC RIGHT DIAGNOSTIC MAMMOGRAPHY COMPUTER-AIDED DETCJ UNI Jitendra Escobedo APRN.CNP [address] [place] [address] Br Imaging [address] [place] [address] Referral ID Status Reason Start Date Expiration Date Visits Requested Visits Authorized [id number] Authorized Auto-Generat ed Referral 01/10/2024 02/08/2025 1 1 [facility] for referral (narrative)* Outpatient Procedure (Routine) - Pending Review Specialty Diagnoses / Procedures Referred By Contac t Referred To Contact [facility] Diagnoses Chronic diastolic (congestive) heart failure (HCC) Procedures ECHO ECHO TTHRC R-T 2D W/WOM-MODE COMPL SPEC&COLR D Paul Bautista MD [address] [place] [id number] [facility] [address] [address] Referral ID Status Reason Start Date Expiration Date Visits Requested Visits Authorized [id number] Pending Review Auto-Generat ed Referral 12/30/2024 03/30/2025 1 1 * Transition of Care (Routine) - Ref Not Required Specialty Diagnoses / Procedures Referred By Contac t Referred To Contact [facility] [place] Procedures CARDIOVASCULAR MEDICINE OP FOLLOW UP APPT ORDER Paul Bautista MD [address] [place] [id number] [facility] [address] [place] [address] Referral ID Status Reason Start Date Expiration Date Visits Requested Visits Authorized [id number] Ref Not Required PCP Requested Referral 12/30/2024 03/30/2025 1 1 [facility] for referral (narrative)* Diagnostic Procedure Only (Routine) - Closed Specialty Diagnoses / Procedures Referred By Tanya t Referred To Contact BR IMAGING Diagnoses Encounter for screening mammogram for breast cancer Procedures NICOLE SCREENING W MICHELLE SCREENING DIGITAL BREAST TOMOSYNTHESIS BI SCREENING MAMMOGRAPHY BI 2-VIEW BREAST INC CAD Jitendra Escobedo APRN.URMILA [address] [place] [address] Br Imaging [address] [place] [address] Referral ID Status Reason Start Date Expiration Date V isits Requested Visits Authorized [id number] Closed Auto-Generate d Referral 12/31/2023 01/29/2025 1 1 [facility] for referral (narrative)* Outpatient Procedure (Routine) - New Request Specialty Diagnoses / Procedures Referred By Tanya t Referred To Contact [facility] [place] Diagnoses Exertional dyspnea Procedures STRESS ECHO TREADMILL ECHO TTHRC R-T 2D W/WO M-MODE COMPLETE REST[place] [address] [place] [address] [facility] [address] [place] [address] Referral ID Status Reason Start Date Expiration Date Visits Requested Visits Authorized [id number] New Request Auto-Generat ed Referral 07/03/2024 07/03/2025 1 1 * Outpatient Procedure (Routine) - New Request Specialty Diagnoses / Procedures Referred By Contac t Referred To Contact [facility] [place] Diagnoses 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 disease, or chronic kidney disease (HCC) Exertional dyspnea Procedures ECG COMPLETE ECG ROUTINE ECG W/LEAST 12 LDS W/I&R Susannah Capellan MD [address] [place] [address] [facility] [place] [address] [place] [address] Referral ID Status Reason Start Date Expiration Date Visits Requested Visits Authorized [id number] New Request Auto-Generat ed Referral 07/03/2024 07/03/2025 1 1 [facility] for referral (narrative)* Diagnostic Procedure Only (Routine) - Closed Specialty Diagnoses / Procedures Referred By Tanya rodriguez Referred To Contact BR IMAGING Diagnoses Encounter for screening mammogram for breast cancer Procedures NICOLE SCREENING W MICHELLE SCREENING DIGITAL BREAST TOMOSYNTHESIS BI SCREENING MAMMOGRAPHY BI 2-VIEW BREAST INC CAD Jitendra Escobedo APRN.CNP [address] [place] [address] Br Imaging [address] [place] [address] Referral ID Status Reason Start Date Expiration Date V isits Requested Visits Authorized [id number] Closed Auto-Generate d Referral 01/05/2023 02/04/[address] [facility] Diagnostic Procedure Only (Routine) - Closed Specialty Diagnoses / Procedures Referred By Tanya rodriguez Referred To Contact BR IMAGING Diagnoses Encounter for screening mammogram for malignant neoplasm of breast Procedures NICOLE SCREENING W MICHELLE SCREENING BREAST DGTL MICHELLE UNI/BILAT ADD ON SCREENING MAMMOGRAPHY BI 2-VIEW BREAST INC CAD Ai Mtz PA-C [address] [place] [address] Br Imaging [address] [place] [address] Referral ID Status Reason Start Date Expiration Date V isits Requested Visits Authorized [id number] Closed Auto-Generate d Referral 07/08/2021 08/07/2022 1 1 [facility] for referral (narrative)* Outpatient Procedure (Routine) - Authorized Specialty Diagnoses / Procedures Referred By Tanya rodriguez Referred To Contact [facility] Diagnoses Chronic diastolic (congestive) heart failure (HCC) Procedures ECHO ECHO TTHRC R-T 2D W/WOM-MODE COMPL SPEC&COLR D Paul Bautista MD [address] [place] [phone] [facility] [place] [address] Referral ID Status Reason Start Date Expiration Date Visits Requested Visits Authorized [id number] Authorized Auto-Generat ed Referral 09/13/2025 1 1 [facility] for referral (narrative)No reason for referral information [facility]WKet[facility] Work Phone: Reason for visit Narrative* Diagnostic Procedure Only (Routine) - Closed Specialty Diagnoses / Procedures Referred By Tanya rodriguez Referred To Contact XR IMAGING Diagnoses Acute right-sided thoracic back pain Procedures XR RIBS/CHEST 3V AP RIB/OBLS/CXR RIGHT RADEX RIBS UNI W/POSTEROANT CH MINIMUM 3 VIEWS Susannah Capellan MD [address] [place] [address] Xr Imaging [facility] Referral ID Status Reason Start Date Expiration Date V isits Requested Visits Authorized [id number] Closed Auto-Generate d Referral 03/08/2023 04/06/2024 1 1 [facility] for visit Narrative* MRI/CT (Routine) - Closed Specialty Diagnoses / Procedures Referred By Tanya rodriguez Referred To Contact MR IMAGING Diagnoses Other specified disorders of kidney and ureter Procedures MRI KIDNEY WO/W IVCON MRI ABDOMEN W/O & W/CONTRAST MATERIAL Susannah Capellan MD [address] [place] [address] Phone: tel: fax: [place] [address] Referral ID Status Reason Start Date Expiration Date V isits Requested Visits Authorized [id number] Closed Auto-Generate d Referral 05/14/2025 06/13/2026 1 1 [facility] for visit Narrative* Diagnostic Procedure Only (Routine) - Closed Specialty Diagnoses / Procedures Referred By Contac t Referred To Contact US IMAGING Diagnoses Acute deep vein thrombosis (DVT) of calf muscle vein of left lower extremity (HCC) Procedures US DVT LOWER LEFT DUP-SCAN XTR VEINS UNILATERAL/LIMITED STUDY Susannah Capellan MD [address] [place] [address] Phone: tel: fax: [place] [address] Referral ID Status Reason Start Date Expiration Date V isits Requested Visits Authorized [id number] Closed Auto-Generate d Referral 05/18/2025 05/17/2026 1 1 [facility] for visit Narrative* Diagnostic Procedure Only (Urgent) - Closed Specialty Diagnoses / Procedures Referred By Contac t Referred To Contact XR IMAGING Diagnoses Pain of left hip Procedures XR HIP GENERAL 3V PELV/AP/LAT LEFT RADEX HIP UNILATERAL WITH PELVIS 2-3 VIEWS Marco Doan APRN.BUSINESS PROFESSOR [address] [place] [address] Phone: tel: fax: [place] [address] Referral ID Status Reason Start Date Expiration Date V isits Requested Visits Authorized [id number] Closed Auto-Generate d Referral 06/05/2025 07/05/[address] [facility] Summary Purpose Family History No Family [...] Unknown February 01, 2018 10:41pm Advance Directives No Advanced Directives Records FoundDocuments on File Type Date Recorded Patient Senior Financial Expl anation Advance Directive(s) 12/16/2021 4:08 PM Date Activated Date Inactivated Comments 10/18/2019 5:45 PM 10/22/2019 5:44 PM Question Answer Comments Full Code Order Discussed With: Patient Documents on File Type Date Recorded Patient Senior Financial Expl anation Advance Directive(s) 12/16/2021 4:08 PM Latest Code Status on File Code Status Date Activated Date Inactivated Comments Full Code 10/18/2019 5:45 PM 10/22/2019 5:44 PM Full Code Order Discussed With: Patient Documents on File Type Date Recorded Patient Senior Financial Expl anation Advance Directive(s) 12/16/2021 4:08 PM Advance Directive(s) 11/26/2021 7:30 AM Advance Directive(s) 10/31/2021 9:14 AM Advance Directive(s) 11/23/2019 3:35 PM Advance Directive(s) 11/22/2019 10:56 AM Advance Directive(s) 02/04/2018 12:21 PM Documents on File Type Date Recorded Patient Senior Financial Expl anation Advance Directive(s) 12/16/2021 4:08 PM [...] Will No November 06 11:58am Power of Linen Checker No November 06, 2023 11:58am Date Activated Date Inactivated Comments 10/18/2019 5:45 PM 10/22/2019 5:44 PM Question Answer Comments Full Code Order Discussed With: Patient Advance Directive Response Recorded Date/ Time Do you have a Healthcare Power of Linen Checker? Yes April 09, 2025 7:26pm Advance Directive Response Recorded Date/ Time Do you have a Healthcare Power of Linen Checker? Yes April 10, 2025 12:27am Advance Directive Response Recorded Date/ Time Do you have a Healthcare Power of Linen Checker? Yes April 10, 2025 12:27am Do you have a Healthcare Power of Linen Checker? No April 27, 2025 3:15pm Advance Directive Response Recorded Date/ Time Do you have a Healthcare Power of Linen Checker? Yes April 10, 2025 12:27am Do you have a Healthcare Power of Linen Checker? Yes April 27, 2025 9:18pm Advance Directive Response Recorded Date/ Time Do you have a Healthcare Power of Linen Checker? Yes April 10, 2025 12:27am Advance Directives on File No Eneida mber 2024 2:31pm Living Will Yes July 11, 2025 2:31pm Do you have a Healthcare Power of Linen Checker? Yes July 11, 2025 2:31pm Do you have a Healthcare Power of Linen Checker? Yes April 27, 2025 9:18pm Reason for Referral Specialty Diagnoses / Procedures Referred By Contac t Referred To Contact Cardiology Diagnoses 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 disease, or chronic kidney disease (HCC) Procedures CONSULT TO CARDIOLOGY OFFICE/OUTPATIENT [facility] 60-74 MINUTES Susannah Capellan MD [address] [place] [address] Referral ID Status Reason Start Date Expiration Date Visits Requested Visits Authorized [id number] Authorized PCP Requested Referral 04/14/2022 04/14/2023 1 1 Specialty Diagnoses / Procedures Referred By Contac t Referred To Contact Diagnoses Rib pain on right side Thoracogenic scoliosis, unspecified spinal region Procedures CONSULT FOR ACUPUNCTURE OFFICE/OUTPATIENT [facility] 60-74 MINUTES Susannah Capellan MD [address] [place] [address] Referral ID Status Reason Start Date Expiration Date Visits Requested Visits Authorized [id number] Pending Review PCP Requested Referral 03/23/2023 03/22/2024 1 1 Specialty Diagnoses / Procedures Referred By Contac t Referred To Contact US IMAGING Diagnoses Epigastric abdominal tenderness without rebound tenderness Procedures US ABD RIGHT UPPER QUADRANT US ABDOMINAL REAL TIME W/IMAGE LIMITED Susannah Capellan MD [address] [place] [address] Us Imaging Referral ID Status Reason Start Date Expiration Date Visits Requested Visits Authorized [id number] Authorized Auto-Generat ed Referral 03/23/2023 04/21/2024 1 1 Specialty Diagnoses / Procedures Referred By Contac t Referred To Contact [facility] Diagnoses Chronic thoracic back pain, unspecified back pain laterality 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 Procedures CONSULT TO PHYSICAL THERAPY PHYSICAL THERAPY EVALUATION HIGH COMPLEX 45 MINS Bertha Yanez, PA-C [address] [place] [address] [facility] [place] [address] [place] [address] Referral ID Status Reason Start Date Expiration Date Visits Requested Visits Authorized [id number] Authorized PCP Requested Referral Auto-Generate d Referral 08/05/2024 99 99 Specialty Diagnoses / Procedures Referred By Contac t Referred To Contact Procedures HEARING TEST/AUDIOGRAM COMPRE AUDIOMETRY THRESHOLD EVAL SP ESTEBANIJ Cristina Lara, AUD [address] [place] [address] [facility] [address] [place] [address] Referral ID Status Reason Start Date Expiration Date Visits Requested Visits Authorized [id number] Pending Review Auto-Generat ed Referral 07/26/2023 07/26/2024 1 1 Specialty Diagnoses / Procedures Referred By Contac t Referred To Contact Procedures CARDIOVASCULAR MEDICINE OP FOLLOW UP APPT ORDER Paul Bautista MD [address] [place] [address] Referral ID Status Reason Start Date Expiration Date Visits Requested Visits Authorized [id number] Ref Not Required PCP Requested Referral 03/31/2024 09/29/2024 1 1 Specialty Diagnoses / Procedures Referred By Contac t Referred To Contact Psychology Diagnoses Situational depression Procedures CONSULT TO PSYCHOLOGY OFFICE/OUTPATIENT [facility] 60 MINUTES Susannah Capellan MD [address] [place] [address] Referral ID Status Reason Start Date Expiration Date Visits Requested Visits Authorized [id number] Pending Review PCP Requested Referral 01/04/2024 01/03/2025 [...] pain with ELEVATED TROPOPIN March 192024 12:11pm BRIGHT W/ORTHOSTATIC HOTN, HYPOXIA April 8:05pm Chief Complaint Admit Date chest pain with ELEVATED TROPOPIN March 192024 11:42pm chest pain with ELEVATED TROPOPIN March 192024 4:29pm chest pain with ELEVATED TROPOPIN March 192024 12:11pm BRIGHT W/ORTHOSTATIC HOTN, HYPOXIA April 8:05pm BRIGHT W/ORTHOSTATIC HOTN, HYPOXIA April 7:09am Reason for Visit Admit Date Chest pressure April 09, 2025 11:4 2pm Elevated troponin April 09, 2025 11:4 2pm Hypertensive emergency April 09, 2025 1 1:42pm NSTEMI (non-ST elevated myocardial infar ction) April 09, 2025 11:42pm Chronic diastolic CHF (congestive heart failure) April 09, 2025 11:42pm Chronic kidney disease April 09, 2025 1 1:42pm HTN (hypertension) April 09, 2025 11:4 2pm (HFpEF) heart failure with preserved eje ction fraction April 27, 2025 8:05pm BRIGHT (acute kidney injury) April 27 8:05pm History of deep vein thrombosis (DVT) of lower extremity April 27, 2025 8:05pm HTN (hypertension), benign April 27 8:05pm Hypoxia April 27, 2025 8:05 pm Orthostatic hypotension April 27, 2025 8:05pm Chief Complaint Admit Date chest pain with ELEVATED TROPOPIN March 192024 11:42pm chest pain with ELEVATED TROPOPIN March 192024 4:29pm chest pain with ELEVATED TROPOPIN March 192024 12:11pm BRIGHT W/ORTHOSTATIC HOTN, HYPOXIA April 8:05pm BRIGHT W/ORTHOSTATIC HOTN, HYPOXIA April 7:09am BRIGHT W/ORTHOSTATIC HOTN, HYPOXIA April 7:08am COPD July 11, 2025 2:04pm COPD July 17, 2025 8:19am COPD July 18, 2025 10 :19am Reason for Visit Admit Date Chest pressure April 09, 2025 11:4 2pm Elevated troponin April 09, 2025 11:4 2pm Hypertensive emergency April 09, 2025 1 1:42pm NSTEMI (non-ST elevated myocardial infar ction) April 09, 2025 11:42pm Chronic diastolic CHF (congestive heart failure) April 09, 2025 11:42pm Chronic kidney disease April 09, 2025 1 1:42pm HTN (hypertension) April 09, 2025 11:4 2pm BRIGHT (acute kidney injury) April 27 8:05pm Orthostatic hypotension April 27, 2025 8:05pm (HFpEF) heart failure with preserved eje ction fraction April 27, 2025 8:05pm History of deep vein thrombosis (DVT) of lower extremity April 27, 2025 8:05pm HTN (hypertension), benign April 27 8:05pm Hypoxia April 27, 2025 8:05 pm Additional Source Comments INFORMATION SOURCE (unrecogn ized section and content) DATE CREATED AUTHOR 04/07/2018 [facility] DATE CREATED AUTHOR AUTHOR'S ORGANIZ ATION 04/07/2018 [facility] DATE CREATED AUTHOR AUTHOR'S ORGANIZ ATION 07/10/2020 [facility] DATE CREATED AUTHOR AUTHOR'S ORGANIZ ATION 08/01/2025 [facility] DATE CREATED AUTHOR AUTHOR'S ORGANIZ ATION 08/19/2025 [facility] DATE CREATED AUTHOR AUTHOR'S ORGANIZ ATION 08/21/2025 [facility] Source Comments (unrecognize d section and content) In the event this informatio n is protected by the Federal Confidentiality of Alcohol and Drug Abuse Patient Records regulations: The Federal rules restrict any use of the information to criminally investigate or prosecute any alcohol or drug abuse patient.[facility] the event this information is protected by the Federal Confidentiality of Alcohol and Drug Abuse Patient Records regulations: The Federal rules restrict any use of the information to criminally investigate or prosecute any alcohol or drug abuse patient.[facility] the event this information is protected by the Federal Confidentiality of Alcohol and Drug Abuse Patient Records regulations: The Federal rules restrict any use of the information to criminally investigate or prosecute any alcohol or drug abuse patient.[facility] the event this information is protected by the Federal Confidentiality of Alcohol and Drug Abuse Patient Records regulations: The Federal rules restrict any use of the information to criminally investigate or prosecute any alcohol or drug abuse patient.[facility] the event this information is protected by the Federal Confidentiality of Alcohol and Drug Abuse Patient Records regulations: The Federal rules restrict any use of the information to criminally investigate or prosecute any alcohol or drug abuse patient.[facility] the event this information is protected by the Federal Confidentiality of Alcohol and Drug Abuse Patient Records regulations: The Federal rules restrict any use of the information to criminally investigate or prosecute any alcohol or drug abuse patient.[facility] the event this information is protected by the Federal Confidentiality of Alcohol and Drug Abuse Patient Records regulations: The Federal rules restrict any use of the information to criminally investigate or prosecute any alcohol or drug abuse patient.[facility] the event this information is protected by the Federal Confidentiality of Alcohol and Drug Abuse Patient Records regulations: The Federal rules restrict any use of the information to criminally investigate or prosecute any alcohol or drug abuse patient.[facility] the event this information is protected by the Federal Confidentiality of Alcohol and Drug Abuse Patient Records regulations: The Federal rules restrict any use of the information to criminally investigate or prosecute any alcohol or drug abuse patient.[facility] the event this information is protected by the Federal Confidentiality of Alcohol and Drug Abuse Patient Records regulations: The Federal rules restrict any use of the information to criminally investigate or prosecute any alcohol or drug abuse patient.[facility] the event this information is protected by the Federal Confidentiality of Alcohol and Drug Abuse Patient Records regulations: The Federal rules restrict any use of the information to criminally investigate or prosecute any alcohol or drug abuse patient.[facility] the event this information is protected by the Federal Confidentiality of Alcohol and Drug Abuse Patient Records regulations: The Federal rules restrict any use of the information to criminally investigate or prosecute any alcohol or drug abuse patient.[facility] the event this information is protected by the Federal Confidentiality of Alcohol and Drug Abuse Patient Records regulations: The Federal rules restrict any use of the information to criminally investigate or prosecute any alcohol or drug abuse patient.[facility] the event this information is protected by the Federal Confidentiality of Alcohol and Drug Abuse Patient Records regulations: The Federal rules restrict any use of the information to criminally investigate or prosecute any alcohol or drug abuse patient.[facility] the event this information is protected by the Federal Confidentiality of Alcohol and Drug Abuse Patient Records regulations: The Federal rules restrict any use of the information to criminally investigate or prosecute any alcohol or drug abuse patient.[facility] the event this information is protected by the Federal Confidentiality of Alcohol and Drug Abuse Patient Records regulations: The Federal rules restrict any use of the information to criminally investigate or prosecute any alcohol or drug abuse patient.[facility] the event this information is protected by the Federal Confidentiality of Alcohol and Drug Abuse Patient Records regulations: The Federal rules restrict any use of the information to criminally investigate or prosecute any alcohol or drug abuse patient.[facility] the event this information is protected by the Federal Confidentiality of Alcohol and Drug Abuse Patient Records regulations: The Federal rules restrict any use of the information to criminally investigate or prosecute any alcohol or drug abuse patient.[facility] the event this information is protected by the Federal Confidentiality of Alcohol and Drug Abuse Patient Records regulations: The Federal rules restrict any use of the information to criminally investigate or prosecute any alcohol or drug abuse patient.[facility] HospitalIn the event this information is protected by the Federal Confidentiality of Alcohol and Drug Abuse Patient Records regulations: The Federal rules restrict any use of the information to criminally investigate or prosecute any alcohol or drug abuse patient.[facility]In the event this information is protected by the Federal Confidentiality of Alcohol and Drug Abuse Patient Records regulations: The Federal rules restrict any use of the information to criminally investigate or prosecute any alcohol or drug abuse patient.[facility] HospitalIn the event this information is protected by the Federal Confidentiality of Alcohol and Drug Abuse Patient Records regulations: The Federal rules restrict any use of the information to criminally investigate or prosecute any alcohol or drug abuse patient.[facility] HospitalIn the event this information is protected by the Federal Confidentiality of Alcohol and Drug Abuse Patient Records regulations: The Federal rules restrict any use of the information to criminally investigate or prosecute any alcohol or drug abuse patient.[facility] HospitalIn the event this information is protected by the Federal Confidentiality of Alcohol and Drug Abuse Patient Records regulations: The Federal rules restrict any use of the information to criminally investigate or prosecute any alcohol or drug abuse patient.[facility] HospitalIn the event this information is protected by the Federal Confidentiality of Alcohol and Drug Abuse Patient Records regulations: The Federal rules restrict any use of the information to criminally investigate or prosecute any alcohol or drug abuse patient.[facility] HospitalIn the event this information is protected by the Federal Confidentiality of Alcohol and Drug Abuse Patient Records regulations: The Federal rules restrict any use of the information to criminally investigate or prosecute any alcohol or drug abuse patient.[facility] HospitalIn the event this information is protected by the Federal Confidentiality of Alcohol and Drug Abuse Patient Records regulations: The Federal rules restrict any use of the information to criminally investigate or prosecute any alcohol or drug abuse patient.[facility]In the event this information is protected by the Federal Confidentiality of Alcohol and Drug Abuse Patient Records regulations: The Federal rules restrict any use of the information to criminally investigate or prosecute any alcohol or drug abuse patient.[facility] HospitalIn the event this information is protected by the Federal Confidentiality of Alcohol and Drug Abuse Patient Records regulations: The Federal rules restrict any use of the information to criminally investigate or prosecute any alcohol or drug abuse patient.[facility] HospitalIn the event this information is protected by the Federal Confidentiality of Alcohol and Drug Abuse Patient Records regulations: The Federal rules restrict any use of the information to criminally investigate or prosecute any alcohol or drug abuse patient.[facility] HospitalIn the event this information is protected by the Federal Confidentiality of Alcohol and Drug Abuse Patient Records regulations: The Federal rules restrict any use of the information to criminally investigate or prosecute any alcohol or drug abuse patient.[facility]In the event this information is protected by the Federal Confidentiality of Alcohol and Drug Abuse Patient Records regulations: The Federal rules restrict any use of the information to criminally investigate or prosecute any alcohol or drug abuse patient.[facility] HospitalIn the event this information is protected by the Federal Confidentiality of Alcohol and Drug Abuse Patient Records regulations: The Federal rules restrict any use of the information to criminally investigate or prosecute any alcohol or drug abuse patient.[facility] HospitalIn the event this information is protected by the Federal Confidentiality of Alcohol and Drug Abuse Patient Records regulations: The Federal rules restrict any use of the information to criminally investigate or prosecute any alcohol or drug abuse patient.[facility] HospitalIn the event this information is protected by the Federal Confidentiality of Alcohol and Drug Abuse Patient Records regulations: The Federal rules restrict any use of the information to criminally investigate or prosecute any alcohol or drug abuse patient.[facility] HospitalIn the event this information is protected by the Federal Confidentiality of Alcohol and Drug Abuse Patient Records regulations: The Federal rules restrict any use of the information to criminally investigate or prosecute any alcohol or drug abuse patient.[facility] HospitalIn the event this information is protected by the Federal Confidentiality of Alcohol and Drug Abuse Patient Records regulations: The Federal rules restrict any use of the information to criminally investigate or prosecute any alcohol or drug abuse patient.[facility] HospitalIn the event this information is protected by the Federal Confidentiality of Alcohol and Drug Abuse Patient Records regulations: The Federal rules restrict any use of the information to criminally investigate or prosecute any alcohol or drug abuse patient.[facility] HospitalIn the event this information is protected by the Federal Confidentiality of Alcohol and Drug Abuse Patient Records regulations: The Federal rules restrict any use of the information to criminally investigate or prosecute any alcohol or drug abuse patient.[facility] HospitalIn the event this information is protected by the Federal Confidentiality of Alcohol and Drug Abuse Patient Records regulations: The Federal rules restrict any use of the information to criminally investigate or prosecute any alcohol or drug abuse patient.[facility] HospitalIn the event this information is protected by the Federal Confidentiality of Alcohol and Drug Abuse Patient Records regulations: The Federal rules restrict any use of the information to criminally investigate or prosecute any alcohol or drug abuse patient.[facility] HospitalIn the event this information is protected by the Federal Confidentiality of Alcohol and Drug Abuse Patient Records regulations: The Federal rules restrict any use of the information to criminally investigate or prosecute any alcohol or drug abuse patient.[facility] HospitalIn the event this information is protected by the Federal Confidentiality of Alcohol and Drug Abuse Patient Records regulations: The Federal rules restrict any use of the information to criminally investigate or prosecute any alcohol or drug abuse patient.[facility] HospitalIn the event this information is protected by the Federal Confidentiality of Alcohol and Drug Abuse Patient Records regulations: The Federal rules restrict any use of the information to criminally investigate or prosecute any alcohol or drug abuse patient.[facility] HospitalIn the event this information is protected by the Federal Confidentiality of Alcohol and Drug Abuse Patient Records regulations: The Federal rules restrict any use of the information to criminally investigate or prosecute any alcohol or drug abuse patient.[facility] HospitalIn the event this information is protected by the Federal Confidentiality of Alcohol and Drug Abuse Patient Records regulations: The Federal rules restrict any use of the information to criminally investigate or prosecute any alcohol or drug abuse patient.[facility] HospitalIn the event this information is protected by the Federal Confidentiality of Alcohol and Drug Abuse Patient Records regulations: The Federal rules restrict any use of the information to criminally investigate or prosecute any alcohol or drug abuse patient.[facility] HospitalIn the event this information is protected by the Federal Confidentiality of Alcohol and Drug Abuse Patient Records regulations: The Federal rules restrict any use of the information to criminally investigate or prosecute any alcohol or drug abuse patient.[facility] HospitalIn the event this information is protected by the Federal Confidentiality of Alcohol and Drug Abuse Patient Records regulations: The Federal rules restrict any use of the information to criminally investigate or prosecute any alcohol or drug abuse patient.[facility] HospitalIn the event this information is protected by the Federal Confidentiality of Alcohol and Drug Abuse Patient Records regulations: The Federal rules restrict any use of the information to criminally investigate or prosecute any alcohol or drug abuse patient.[facility] HospitalIn the event this information is protected by the Federal Confidentiality of Alcohol and Drug Abuse Patient Records regulations: The Federal rules restrict any use of the information to criminally investigate or prosecute any alcohol or drug abuse patient.[facility] HospitalIn the event this information is protected by the Federal Confidentiality of Alcohol and Drug Abuse Patient Records regulations: The Federal rules restrict any use of the information to criminally investigate or prosecute any alcohol or drug abuse patient.[facility] HospitalIn the event this information is protected by the Federal Confidentiality of Alcohol and Drug Abuse Patient Records regulations: The Federal rules restrict any use of the information to criminally investigate or prosecute any alcohol or drug abuse patient.[facility] HospitalIn the event this information is protected by the Federal Confidentiality of Alcohol and Drug Abuse Patient Records regulations: The Federal rules restrict any use of the information to criminally investigate or prosecute any alcohol or drug abuse patient.[facility] HospitalIn the event this information is protected by the Federal Confidentiality of Alcohol and Drug Abuse Patient Records regulations: The Federal rules restrict any use of the information to criminally investigate or prosecute any alcohol or drug abuse patient.[facility] HospitalIn the event this information is protected by the Federal Confidentiality of Alcohol and Drug Abuse Patient Records regulations: The Federal rules restrict any use of the information to criminally investigate or prosecute any alcohol or drug abuse patient.[facility] HospitalIn the event this information is protected by the Federal Confidentiality of Alcohol and Drug Abuse Patient Records regulations: The Federal rules restrict any use of the information to criminally investigate or prosecute any alcohol or drug abuse patient.[facility] HospitalIn the event this information is protected by the Federal Confidentiality of Alcohol and Drug Abuse Patient Records regulations: The Federal rules restrict any use of the information to criminally investigate or prosecute any alcohol or drug abuse patient.[facility] HospitalIn the event this information is protected by the Federal Confidentiality of Alcohol and Drug Abuse Patient Records regulations: The Federal rules restrict any use of the information to criminally investigate or prosecute any alcohol or drug abuse patient.[facility] HospitalIn the event this information is protected by the Federal Confidentiality of Alcohol and Drug Abuse Patient Records regulations: The Federal rules restrict any use of the information to criminally investigate or prosecute any alcohol or drug abuse patient.[facility] HospitalIn the event this information is protected by the Federal Confidentiality of Alcohol and Drug Abuse Patient Records regulations: The Federal rules restrict any use of the information to criminally investigate or prosecute any alcohol or drug abuse patient.[facility] HospitalIn the event this information is protected by the Federal Confidentiality of Alcohol and Drug Abuse Patient Records regulations: The Federal rules restrict any use of the information to criminally investigate or prosecute any alcohol or drug abuse patient.[facility] HospitalIn the event this information is protected by the Federal Confidentiality of Alcohol and Drug Abuse Patient Records regulations: The Federal rules restrict any use of the information to criminally investigate or prosecute any alcohol or drug abuse patient.[facility] HospitalIn the event this information is protected by the Federal Confidentiality of Alcohol and Drug Abuse Patient Records regulations: The Federal rules restrict any use of the information to criminally investigate or prosecute any alcohol or drug abuse patient.[facility] HospitalIn the event this information is protected by the Federal Confidentiality of Alcohol and Drug Abuse Patient Records regulations: The Federal rules restrict any use of the information to criminally investigate or prosecute any alcohol or drug abuse patient.[facility] HospitalIn the event this information is protected by the Federal Confidentiality of Alcohol and Drug Abuse Patient Records regulations: The Federal rules restrict any use of the information to criminally investigate or prosecute any alcohol or drug abuse patient.[facility]In the event this information is protected by the Federal Confidentiality of Alcohol and Drug Abuse Patient Records regulations: The Federal rules restrict any use of the information to criminally investigate or prosecute any alcohol or drug abuse patient.[facility] HospitalIn the event this information is protected by the Federal Confidentiality of Alcohol and Drug Abuse Patient Records regulations: The Federal rules restrict any use of the information to criminally investigate or prosecute any alcohol or drug abuse patient.[facility] HospitalIn the event this information is protected by the Federal Confidentiality of Alcohol and Drug Abuse Patient Records regulations: The Federal rules restrict any use of the information to criminally investigate or prosecute any alcohol or drug abuse patient.[facility] HospitalIn the event this information is protected by the Federal Confidentiality of Alcohol and Drug Abuse Patient Records regulations: The Federal rules restrict any use of the information to criminally investigate or prosecute any alcohol or drug abuse patient.[facility] HospitalIn the event this information is protected by the Federal Confidentiality of Alcohol and Drug Abuse Patient Records regulations: The Federal rules restrict any use of the information to criminally investigate or prosecute any alcohol or drug abuse patient.[facility] HospitalIn the event this information is protected by the Federal Confidentiality of Alcohol and Drug Abuse Patient Records regulations: The Federal rules restrict any use of the information to criminally investigate or prosecute any alcohol or drug abuse patient.[facility] HospitalIn the event this information is protected by the Federal Confidentiality of Alcohol and Drug Abuse Patient Records regulations: The Federal rules restrict any use of the information to criminally investigate or prosecute any alcohol or drug abuse patient.[facility]In the event this information is protected by the Federal Confidentiality of Alcohol and Drug Abuse Patient Records regulations: The Federal rules restrict any use of the information to criminally investigate or prosecute any alcohol or drug abuse patient.[facility] HospitalIn the event this information is protected by the Federal Confidentiality of Alcohol and Drug Abuse Patient Records regulations: The Federal rules restrict any use of the information to criminally investigate or prosecute any alcohol or drug abuse patient.[facility] HospitalIn the event this information is protected by the Federal Confidentiality of Alcohol and Drug Abuse Patient Records regulations: The Federal rules restrict any use of the information to criminally investigate or prosecute any alcohol or drug abuse patient.[facility]In the event this information is protected by the Federal Confidentiality of Alcohol and Drug Abuse Patient Records regulations: The Federal rules restrict any use of the information to criminally investigate or prosecute any alcohol or drug abuse patient.[facility]In the event this information is protected by the Federal Confidentiality of Alcohol and Drug Abuse Patient Records regulations: The Federal rules restrict any use of the information to criminally investigate or prosecute any alcohol or drug abuse patient.[facility]In the event this information is protected by the Federal Confidentiality of Alcohol and Drug Abuse Patient Records regulations: The Federal rules restrict any use of the information to criminally investigate or prosecute any alcohol or drug abuse patient.[facility] HospitalIn the event this information is protected by the Federal Confidentiality of Alcohol and Drug Abuse Patient Records regulations: The Federal rules restrict any use of the information to criminally investigate or prosecute any alcohol or drug abuse patient.[facility] HospitalIn the event this information is protected by the Federal Confidentiality of Alcohol and Drug Abuse Patient Records regulations: The Federal rules restrict any use of the information to criminally investigate or prosecute any alcohol or drug abuse patient.[facility] HospitalIn the event this information is protected by the Federal Confidentiality of Alcohol and Drug Abuse Patient Records regulations: The Federal rules restrict any use of the information to criminally investigate or prosecute any alcohol or drug abuse patient.[facility] HospitalIn the event this information is protected by the Federal Confidentiality of Alcohol and Drug Abuse Patient Records regulations: The Federal rules restrict any use of the information to criminally investigate or prosecute any alcohol or drug abuse patient.[facility] HospitalIn the event this information is protected by the Federal Confidentiality of Alcohol and Drug Abuse Patient Records regulations: The Federal rules restrict any use of the information to criminally investigate or prosecute any alcohol or drug abuse patient.[facility] HospitalIn the event this information is protected by the Federal Confidentiality of Alcohol and Drug Abuse Patient Records regulations: The Federal rules restrict any use of the information to criminally investigate or prosecute any alcohol or drug abuse patient.[facility]In the event this information is protected by the Federal Confidentiality of Alcohol and Drug Abuse Patient Records regulations: The Federal rules restrict any use of the information to criminally investigate or prosecute any alcohol or drug abuse patient.[facility]In the event this information is protected by the Federal Confidentiality of Alcohol and Drug Abuse Patient Records regulations: The Federal rules restrict any use of the information to criminally investigate or prosecute any alcohol or drug abuse patient.[facility] HospitalIn the event this information is protected by the Federal Confidentiality of Alcohol and Drug Abuse Patient Records regulations: The Federal rules restrict any use of the information to criminally investigate or prosecute any alcohol or drug abuse patient.[facility]In the event this information is protected by the Federal Confidentiality of Alcohol and Drug Abuse Patient Records regulations: The Federal rules restrict any use of the information to criminally investigate or prosecute any alcohol or drug abuse patient.[facility]In the event this information is protected by the Federal Confidentiality of Alcohol and Drug Abuse Patient Records regulations: The Federal rules restrict any use of the information to criminally investigate or prosecute any alcohol or drug abuse patient.[facility]In the event this information is protected by the Federal Confidentiality of Alcohol and Drug Abuse Patient Records regulations: The Federal rules restrict any use of the information to criminally investigate or prosecute any alcohol or drug abuse patient.[facility]In the event this information is protected by the Federal Confidentiality of Alcohol and Drug Abuse Patient Records regulations: The Federal rules restrict any use of the information to criminally investigate or prosecute any alcohol or drug abuse patient.[facility]In the event this information is protected by the Federal Confidentiality of Alcohol and Drug Abuse Patient Records regulations: The Federal rules restrict any use of the information to criminally investigate or prosecute any alcohol or drug abuse patient.[facility]In the event this information is protected by the Federal Confidentiality of Alcohol and Drug Abuse Patient Records regulations: The Federal rules restrict any use of the information to criminally investigate or prosecute any alcohol or drug abuse patient.[facility]In the event this information is protected by the Federal Confidentiality of Alcohol and Drug Abuse Patient Records regulations: The Federal rules restrict any use of the information to criminally investigate or prosecute any alcohol or drug abuse patient.[facility]In the event this information is protected by the Federal Confidentiality of Alcohol and Drug Abuse Patient Records regulations: The Federal rules restrict any use of the information to criminally investigate or prosecute any alcohol or drug abuse patient.[facility]In the event this information is protected by the Federal Confidentiality of Alcohol and Drug Abuse Patient Records regulations: The Federal rules restrict any use of the information to criminally investigate or prosecute any alcohol or drug abuse patient.[facility]In the event this information is protected by the Federal Confidentiality of Alcohol and Drug Abuse Patient Records regulations: The Federal rules restrict any use of the information to criminally investigate or prosecute any alcohol or drug abuse patient.[facility]In the event this information is protected by the Federal Confidentiality of Alcohol and Drug Abuse Patient Records regulations: The Federal rules restrict any use of the information to criminally investigate or prosecute any alcohol or drug abuse patient.[facility]In the event this information is protected by the Federal Confidentiality of Alcohol and Drug Abuse Patient Records regulations: The Federal rules restrict any use of the information to criminally investigate or prosecute any alcohol or drug abuse patient.[facility]In the event this information is protected by the Federal Confidentiality of Alcohol and Drug Abuse Patient Records regulations: The Federal rules restrict any use of the information to criminally investigate or prosecute any alcohol or drug abuse patient.[facility]In the event this information is protected by the Federal Confidentiality of Alcohol and Drug Abuse Patient Records regulations: The Federal rules restrict any use of the information to criminally investigate or prosecute any alcohol or drug abuse patient.[facility]In the event this information is protected by the Federal Confidentiality of Alcohol and Drug Abuse Patient Records regulations: The Federal rules restrict any use of the information to criminally investigate or prosecute any alcohol or drug abuse patient.[facility]In the event this information is protected by the Federal Confidentiality of Alcohol and Drug Abuse Patient Records regulations: The Federal rules restrict any use of the information to criminally investigate or prosecute any alcohol or drug abuse patient.[facility]In the event this information is protected by the Federal Confidentiality of Alcohol and Drug Abuse Patient Records regulations: The Federal rules restrict any use of the information to criminally investigate or prosecute any alcohol or drug abuse patient.[facility] HospitalIn the event this information is protected by the Federal Confidentiality of Alcohol and Drug Abuse Patient Records regulations: The Federal rules restrict any use of the information to criminally investigate or prosecute any alcohol or drug abuse patient.[facility] HospitalIn the event this information is protected by the Federal Confidentiality of Alcohol and Drug Abuse Patient Records regulations: The Federal rules restrict any use of the information to criminally investigate or prosecute any alcohol or drug abuse patient.[facility] HospitalIn the event this information is protected by the Federal Confidentiality of Alcohol and Drug Abuse Patient Records regulations: The Federal rules restrict any use of the information to criminally investigate or prosecute any alcohol or drug abuse patient.[facility] HospitalIn the event this information is protected by the Federal Confidentiality of Alcohol and Drug Abuse Patient Records regulations: The Federal rules restrict any use of the information to criminally investigate or prosecute any alcohol or drug abuse patient.[facility] HospitalIn the event this information is protected by the Federal Confidentiality of Alcohol and Drug Abuse Patient Records regulations: The Federal rules restrict any use of the information to criminally investigate or prosecute any alcohol or drug abuse patient.[facility] HospitalIn the event this information is protected by the Federal Confidentiality of Alcohol and Drug Abuse Patient Records regulations: The Federal rules restrict any use of the information to criminally investigate or prosecute any alcohol or drug abuse patient.[facility] HospitalIn the event this information is protected by the Federal Confidentiality of Alcohol and Drug Abuse Patient Records regulations: The Federal rules restrict any use of the information to criminally investigate or prosecute any alcohol or drug abuse patient.[facility] HospitalIn the event this information is protected by the Federal Confidentiality of Alcohol and Drug Abuse Patient Records regulations: The Federal rules restrict any use of the information to criminally investigate or prosecute any alcohol or drug abuse patient.[facility] HospitalIn the event this information is protected by the Federal Confidentiality of Alcohol and Drug Abuse Patient Records regulations: The Federal rules restrict any use of the information to criminally investigate or prosecute any alcohol or drug abuse patient.[facility] HospitalIn the event this information is protected by the Federal Confidentiality of Alcohol and Drug Abuse Patient Records regulations: The Federal rules restrict any use of the information to criminally investigate or prosecute any alcohol or drug abuse patient.[facility] HospitalIn the event this information is protected by the Federal Confidentiality of Alcohol and Drug Abuse Patient Records regulations: The Federal rules restrict any use of the information to criminally investigate or prosecute any alcohol or drug abuse patient.[facility] ClinicIn the event this information is protected by the Federal Confidentiality of Alcohol and Drug Abuse Patient Records regulations: The Federal rules restrict any use of the information to criminally investigate or prosecute any alcohol or drug abuse patient.[facility] HospitalIn the event this information is protected by the Federal Confidentiality of Alcohol and Drug Abuse Patient Records regulations: The Federal rules restrict any use of the information to criminally investigate or prosecute any alcohol or drug abuse patient.[facility] HospitalIn the event this information is protected by the Federal Confidentiality of Alcohol and Drug Abuse Patient Records regulations: The Federal rules restrict any use of the information to criminally investigate or prosecute any alcohol or drug abuse patient.[facility] HospitalIn the event this information is protected by the Federal Confidentiality of Alcohol and Drug Abuse Patient Records regulations: The Federal rules restrict any use of the information to criminally investigate or prosecute any alcohol or drug abuse patient.[facility] HospitalIn the event this information is protected by the Federal Confidentiality of Alcohol and Drug Abuse Patient Records regulations: The Federal rules restrict any use of the information to criminally investigate or prosecute any alcohol or drug abuse patient.[facility] HospitalIn the event this information is protected by the Federal Confidentiality of Alcohol and Drug Abuse Patient Records regulations: The Federal rules restrict any use of the information to criminally investigate or prosecute any alcohol or drug abuse patient.[facility] HospitalIn the event this information is protected by the Federal Confidentiality of Alcohol and Drug Abuse Patient Records regulations: The Federal rules restrict any use of the information to criminally investigate or prosecute any alcohol or drug abuse patient.[facility] HospitalIn the event this information is protected by the Federal Confidentiality of Alcohol and Drug Abuse Patient Records regulations: The Federal rules restrict any use of the information to criminally investigate or prosecute any alcohol or drug abuse patient.[facility] HospitalIn the event this information is protected by the Federal Confidentiality of Alcohol and Drug Abuse Patient Records regulations: The Federal rules restrict any use of the information to criminally investigate or prosecute any alcohol or drug abuse patient.[facility] HospitalIn the event this information is protected by the Federal Confidentiality of Alcohol and Drug Abuse Patient Records regulations: The Federal rules restrict any use of the information to criminally investigate or prosecute any alcohol or drug abuse patient.[facility] HospitalIn the event this information is protected by the Federal Confidentiality of Alcohol and Drug Abuse Patient Records regulations: The Federal rules restrict any use of the information to criminally investigate or prosecute any alcohol or drug abuse patient.[facility] HospitalIn the event this information is protected by the Federal Confidentiality of Alcohol and Drug Abuse Patient Records regulations: The Federal rules restrict any use of the information to criminally investigate or prosecute any alcohol or drug abuse patient.[facility] HospitalIn the event this information is protected by the Federal Confidentiality of Alcohol and Drug Abuse Patient Records regulations: The Federal rules restrict any use of the information to criminally investigate or prosecute any alcohol or drug abuse patient.[facility] HospitalIn the event this information is protected by the Federal Confidentiality of Alcohol and Drug Abuse Patient Records regulations: The Federal rules restrict any use of the information to criminally investigate or prosecute any alcohol or drug abuse patient.[facility] HospitalIn the event this information is protected by the Federal Confidentiality of Alcohol and Drug Abuse Patient Records regulations: The Federal rules restrict any use of the information to criminally investigate or prosecute any alcohol or drug abuse patient.[facility] HospitalIn the event this information is protected by the Federal Confidentiality of Alcohol and Drug Abuse Patient Records regulations: The Federal rules restrict any use of the information to criminally investigate or prosecute any alcohol or drug abuse patient.[facility] HospitalIn the event this information is protected by the Federal Confidentiality of Alcohol and Drug Abuse Patient Records regulations: The Federal rules restrict any use of the information to criminally investigate or prosecute any alcohol or drug abuse patient.[facility] HospitalIn the event this information is protected by the Federal Confidentiality of Alcohol and Drug Abuse Patient Records regulations: The Federal rules restrict any use of the information to criminally investigate or prosecute any alcohol or drug abuse patient.[facility] HospitalIn the event this information is protected by the Federal Confidentiality of Alcohol and Drug Abuse Patient Records regulations: The Federal rules restrict any use of the information to criminally investigate or prosecute any alcohol or drug abuse patient.[facility] HospitalIn the event this information is protected by the Federal Confidentiality of Alcohol and Drug Abuse Patient Records regulations: The Federal rules restrict any use of the information to criminally investigate or prosecute any alcohol or drug abuse patient.[facility] HospitalIn the event this information is protected by the Federal Confidentiality of Alcohol and Drug Abuse Patient Records regulations: The Federal rules restrict any use of the information to criminally investigate or prosecute any alcohol or drug abuse patient.[facility] HospitalIn the event this information is protected by the Federal Confidentiality of Alcohol and Drug Abuse Patient Records regulations: The Federal rules restrict any use of the information to criminally investigate or prosecute any alcohol or drug abuse patient.[facility] Reason for Visit (unrecogniz ed section and content) Reason Comments Follow Up Specialty Diagnoses / Procedures Referred By Contac t Referred To Contact [facility] Diagnoses Chronic diastolic (congestive) heart failure (HCC) Procedures ECHO ECHO TTHRC R-T 2D W/WOM-MODE COMPL SPEC&COLR D Paul Bautista MD [address] [place] [address] Phone: tel: fax: [facility] [place] [address] [place] [address] Referral ID Status Reason Start Date Expiration Date V isits Requested Visits Authorized [id number] Closed Auto-Generate d Referral 09/13/2024 09/13/2025 1 1 Reason Comments Physical Therapy Specialty Diagnoses / Procedures Referred By Contac t Referred To Contact [facility] Diagnoses Chronic thoracic back pain, unspecified back pain laterality 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 Procedures CONSULT TO PHYSICAL THERAPY PHYSICAL THERAPY EVALUATION HIGH COMPLEX 45 MINS Bertha Yanez PA-C [address] [place] [address] [facility] [address] [address] Referral ID Status Reason Start Date Expiration Date Visits Requested Visits Authorized [id number] Authorized PCP Requested Referral Auto-Generate d Referral 08/05/2024 99 99 Reason Comments Occupational Therapy Specialty Diagnoses / Procedures Referred By Contac t Referred To Contact [facility] Diagnoses Primary osteoarthritis of first carpometacarpal joint of left hand Procedures CONSULT TO BIOSOLIDS MANAGEMENT TECHNICIAN OCCUPATIONAL THERAPY EVAL HIGH COMPLEX 60 MINS Joni Lew PA-C [address] [facility] [place] [address] [facility] [address] [address] Referral ID Status Reason Start Date Expiration Date Visits Requested Visits Authorized [id number] Authorized PCP Requested Referral Auto-Generate d Referral 12/09/2021 12/09/2022 99 99 Reason Onset Date Comments Occupational Therapy No Show 01/27/2022 No show Reason Comments OT Progress Note Reason Comments Results Reason Comments Follow Up Reason Comments New Patient Anemia Specialty Diagnoses / Procedures Referred By Contac t Referred To Contact Hematology Diagnoses Anemia, unspecified type Procedures CONSULT TO HEMATOLOGY OFFICE/OUTPATIENT [facility] 60-74 MINUTES Susannah Capellan MD [address] [place] [address] Referral ID Status Reason Start Date Expiration Date V isits Requested Visits Authorized [id number] Closed PCP Requested Referral 02/19/2022 05/20/2022 1 1 Reason Comments Hair Loss Reason Comments Consult Specialty Diagnoses / Procedures Referred By Contac t Referred To Contact Cardiology Diagnoses 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 disease, or chronic kidney disease (HCC) Procedures CONSULT TO CARDIOLOGY OFFICE/OUTPATIENT [facility] 60-74 MINUTES Susannah Capellan MD [address] [place] [address] Referral ID Status Reason Start Date Expiration Date V isits Requested Visits Authorized [id number] Closed PCP Requested Referral 04/14/2022 04/14/2023 1 1 Reason Comments Follow Up Reason Onset Date Comments Refill Request 08/06/2022 Reason Comments 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 Reason Comments Established Patient [...] THERAPY EVALUATION HIGH COMPLEX 45 MINS Susannah Capellan MD [address] [place] [address] [facility] [address] [address] Referral ID Status Reason Start Date Expiration Date Visits Requested Visits Authorized [id number] Authorized PCP Requested Referral Auto-Generate d Referral 03/08/2023 03/07/2024 99 99 Reason Comments Back Pain (Upper Back) Reason Comments Medicare Wellness Exam Reason Comments New Patient Low Back Pain Specialty Diagnoses / Procedures Referred By Contac t Referred To Contact [facility] [place] Diagnoses Medicare annual wellness visit, subsequent Thoracogenic scoliosis, unspecified spinal region Chronic thoracic back pain, unspecified back pain laterality Procedures CONSULT TO [facility] OFFICE/OUTPATIENT [facility] 60-74 MINUTES Susannah Capellan MD [address] [place] [address] Referral ID Status Reason Start Date Expiration Date V isits Requested Visits Authorized [id number] Closed PCP Requested Referral 07/05/2023 07/04/2024 1 1 Specialty Diagnoses / Procedures Referred By Contac t Referred To Contact Diagnoses Medicare annual wellness visit, subsequent Decreased hearing of both ears Procedures HEARING TEST/AUDIOGRAM COMPRE AUDIOMETRY THRESHOLD EVAL SP ESTEBANIJ Susannah Capellan MD [address] [place] [address] [facility] [address] [place] [address] Referral ID Status Reason Start Date Expiration Date V isits Requested Visits Authorized [id number] Closed Auto-Generate d Referral 07/05/2023 10/03/2023 1 1 Reason Comments Refill Request Reason Comments Radiology US Specialty Diagnoses / Procedures Referred By Contac t Referred To Contact [facility] Diagnoses Epigastric abdominal tenderness without rebound tenderness Procedures US ABD RIGHT UPPER QUADRANT US ABDOMINAL REAL TIME W/IMAGE LIMITED Susannah Capellan MD [address] [place] [address] [facility] [place] [facility] Referral ID Status Reason Start Date Expiration Date V isits Requested Visits Authorized [id number] Closed Auto-Generate d Referral 03/23/2023 04/21/2024 1 1 Reason Comments Radiology NM Specialty Diagnoses / Procedures Referred By Contac t Referred To Contact [facility] Diagnoses Medicare annual wellness visit, subsequent Epigastric pain Procedures NM HEPATOBILIARY W EF AND/OR RX HEPATOBIL SYST IMAG INC GB W/[place] [address] [place] [address] [facility] [address] [place] [address] Referral ID Status Reason Start Date Expiration Date V isits Requested Visits Authorized [id number] Closed Auto-Generate d Referral 07/05/2023 08/03/2024 1 1 Specialty Diagnoses / Procedures Referred By Contac t Referred To Contact [facility] Diagnoses Urinary retention Procedures US PELVIS BLADDER US PELVIC NONOBSTETRIC IMAGE DCMTN LIMITED/F/U Susannah Capellan MD [address] [place] [address] Us Imaging [id number] Referral ID Status Reason Start Date Expiration Date V isits Requested Visits Authorized [id number] Closed Auto-Generate d Referral 10/01/2022 10/31/2023 1 [...] SCREENING MAMMOGRAPHY BI 2-VIEW BREAST INC CAD Jitendra Escobedo, SOCCER COMMENTATOR.BUSINESS PROFESSOR [address] [place] [address] [facility] [address] [place] [address] Referral ID Status Reason Start Date Expiration Date V isits Requested Visits Authorized [id number] Closed Auto-Generate d Referral 12/31/2023 01/29/2025 1 1 Reason Comments Patient Question Nothing was availabl e for medicare wellness until February, AVS said to see in 4 months, offered patient to schedule with Eve, she did not want to, wanted to know if scheduling her for February was okay with you? She asked me to send this to you. Referral ID Status Reason Start Date Expiration Date V isits Requested Visits Authorized [id number] Closed Auto-Generate d Referral 01/05/2023 02/04/2024 1 [...] BI 2[facility] Ai Brar PA-C [address] [place] [address] [facility] [address] [place] [address] Referral ID Status Reason Start Date Expiration [...] Comments Nm Pet Request Reason Comments Forms [facility] Reason Comments Counseling Patient was taken to the ED overnight. Has had what they think is a heart attack. They want to do a cardiac cath. Reason Comments Appointment Reason Comments Medication Problem Eliquis 5 mg, take o ne tablet twice daily Reason Comments Hospital F/U dizziness and nausea Reason Comments Patient Update Reason Comments Hospital F/U Reason Comments Received Outside Medical Records [facility] Reason Comments Orders Reason Comments Radiology US Specialty Diagnoses / Procedures Referred By Contac t Referred To Contact [facility] Diagnoses Kidney lesion, [place], left Procedures US KIDNEY/BLADDER US RETROPERITONEAL REAL TIME W/IMAGE COMPLETE Susannah Capellan MD [address] [place] [address] Phone: tel: fax: [place] [address] Referral ID Status Reason Start Date Expiration Date V isits Requested Visits Authorized [id number] Closed Auto-Generate d Referral 05/01/2025 05/31/2026 1 1 Reason Comments hypoxia Hospital F/U Reason Comments New Patient Shortness of Breath for unknown amount of time, cough that resolved. Reason Comments Hip Pain left hip and thigh p ain x 1 week, denies injury Reason Onset Date Comments Results 06/05/2025 Reason Comments Pulse Ox report Test Smarter Specialty Diagnoses / Procedures Referred By Contac t Referred To Contact [facility] Diagnoses Encounter for screening mammogram for high-risk patient Procedures NICOLE SCREENING W MICHELLE SCREENING DIGITAL BREAST TOMOSYNTHESIS BI SCREENING MAMMOGRAPHY BI 2-VIEW BREAST INC Jitendra Ochoa APRN.BUSINESS PROFESSOR [address] [place] [address] Phone: tel: fax: [facility] [address] [place] [address] Referral ID Status Reason Start Date Expiration Date Visits Requested Visits Authorized [id number] New Request Auto-Generat ed Referral 06/22/2025 07/22/2026 1 1 Reason Comments Established Patient Annual breast exam w ith mammogram; no breast concerns at this time Reason Comments Mammogram Result Call Back Care Teams (unrecognized sec tion and content) Team Status: Active Member Role Status Dates Dr. Susannah Capellan MD Primary Care Provider Active Team Status: Inactive Member Role Status Dates Dr. Susannah Capellan MD Primary Care Provider Active Start: April 09, 2025 End: April 11, 2025 Serge Mcmullen MD Emergency Provider Active Star t: April 09, 2025 End: April 11, 2025 Dr. Bertha Godoy DO Admit Provider Active Start: April 09, 2025 End: April 11, 2025 Dr. Bertha Godoy DO Other Provider Active Start: April 09, 2025 End: April 11, 2025 Dr. Vasile Reyes MD Other Provider Active Start : April 09, 2025 End: April 11, 2025 Dr. Adilson Melchor DO Attending Provider Active Start: April 09, 2025 End: April 11, 2025 Team Status: Active Member Role Status Dates Dr. Susannah Capellan MD Primary Care Provider Active Start: April 10, 2025 Dr. Vasile Reyes MD Attending Provider Active S tart: April 10, 2025 Team Status: Active Member Role Status Dates Dr. Susannah Capellan MD Primary Care Provider Active Start: April 10, 2025 Dr. Richard Angelo MD Attending Provider Active S tart: April 10, 2025 Team Status: Active Member Role Status Dates Dr. Susannah Capellan MD Primary Care Provider Active Start: April 10, 2025 Serge Mcmullen MD Emergency Provider Active Star t: April 10, 2025 Dr. Bertha Godoy DO Admit Provider Active Start: April 10, 2025 Dr. Bertha Godoy DO Other Provider Active Start: April 10, 2025 Dr. Vasile Reyes MD Other Provider Active Start : April 10, 2025 Dr. Adilson Melchor DO Attending Provider Active Start: April 10, 2025 Dr. Adilson Melchor DO Other Provider Active Start: April 10, 2025 Team Status: Active Member Role Status Dates Dr. Susannah Capellan MD Primary Care Provider Active Start: April 11, 2025 Serge Mcmullen MD Emergency Provider Active Star t: April 11, 2025 Dr. Bertha Godoy DO Admit Provider Active Start: April 11, 2025 Dr. Bertha Godoy DO Other Provider Active Start: April 11, 2025 Dr. Vasile Reyes MD Other Provider Active Start : April 11, 2025 Dr. Adilson Melchor DO Attending Provider Active Start: April 11, 2025 Dr. Adilson Melchor DO Other Provider Active Start: April 11, 2025 Team Status: Active Member Role Status Dates Dr. Susannah Capellan MD Primary Care Provider Active Start: April 09, 2025 Serge Mcmullen MD Emergency Provider Active Star t: April 09, 2025 Dr. Bertha Godoy DO Admit Provider Active Start: April 09, 2025 Dr. Bertha Godoy DO Attending Provider Active Start: April 09, 2025 End User Support Specialist Relationship Specialty Start Date End Date Susannah Capellan MD [address] [place] [address] PCP - General Internal Medicine 11/10/16 Win Alfred MD [address] [place] [address] [place] [address] Primary Staff Physician Cardiology 11/07/21 End User Support Specialist Relationship Specialty Start Date End Date Susannah Capellan MD [address] [place] [address] PCP - General Internal Medicine 11/10/16 Win Alfred MD [address] [place] [place] [address] Primary Staff Physician Cardiology 11/07/21 End User Support Specialist Relationship Specialty Start Date End Date Susannah Capellan MD [address] [place], [place] [id number] PCP - General Internal Medicine 11/10/16 Win Alfred MD [address] [place] [place] [address] Primary Staff Physician Cardiology 11/07/21 End User Support Specialist Relationship Specialty Start Date End Date Susannah Capellan MD [address] [place], [place] [id number] PCP - General Internal Medicine 11/10/16 Win Alfred MD [address] [place] [place] [address] Primary Staff Physician Cardiology 11/07/21 End User Support Specialist Relationship Specialty Start Date End Date Susannah Capellan MD [address] [place], [place] [address] PCP - General Internal Medicine 11/10/16 Win Alfred MD [address] [place] [place] [address] Primary Staff Physician Cardiology 11/07/21 End User Support Specialist Relationship Specialty Start Date End Date Susannah Capellan MD [address] [place], [place] [id number] PCP - General Internal Medicine 11/10/16 Win Alfred MD [address] [place] [place] [address] Primary Staff Physician Cardiology 11/07/21 End User Support Specialist Relationship Specialty Start Date End Date Susannah Capellan MD [address] [place], [place] [address] PCP - General Internal Medicine 11/10/16 Win Alfred MD [address] [place] [place] [address] Primary Staff Physician Cardiology 11/07/21 End User Support Specialist Relationship Specialty Start Date End Date Susannah Capellan MD [address] [place], [place] [address] PCP - General Internal Medicine 11/10/16 Win Alfred MD [address] [place] [place] [address] Primary Staff Physician Cardiology 11/07/21 End User Support Specialist Relationship Specialty Start Date End Date Susannah Capellan MD [address] [place], [place] [address] PCP - General Internal Medicine 11/10/16 Win Alfred MD [address] [place] [place] [address] Primary Staff Physician Cardiology 11/07/21 End User Support Specialist Relationship Specialty Start Date End Date Susannah Capellan MD [address] [place], [place] [address] PCP - General Internal Medicine 11/10/16 Win Alfred MD [address] [place] [address] [place] [address] Primary Staff Physician Cardiology 11/07/21 End User Support Specialist Relationship Specialty Start Date End Date Susannah Capellan MD [address] [place], [place] [address] PCP - General Internal Medicine 11/10/16 Win Alfred MD [address] [place] [place] [address] Primary Staff Physician Cardiology 11/07/21 End User Support Specialist Relationship Specialty Start Date End Date Susannah Capellan MD [address] [place], [place] [id number] PCP - General Internal Medicine 11/10/16 Win Alfred MD [address] [place] [place] [address] Primary Staff Physician Cardiology 11/07/21 End User Support Specialist Relationship Specialty Start Date End Date Susannah Capellan MD [address] [place], [place] [id number] PCP - General Internal Medicine 11/10/16 Win Alfred MD [address] [place] [place] [address] Primary Staff Physician Cardiology 11/07/21 End User Support Specialist Relationship Specialty Start Date End Date Susannah Capellan MD [address] [place], [place] [id number] PCP - General Internal Medicine 11/10/16 Win Alfred MD [address] [place] [address] Primary Staff Physician Cardiology 11/07/21 End User Support Specialist Relationship Specialty Start Date End Date Susannah Capellan MD [address] [place], [place] [id number] PCP - General Internal Medicine 11/10/16 Win Alfred MD [address] [place] [address] Primary Staff Physician Cardiology 11/07/21 End User Support Specialist Relationship Specialty Start Date End Date Susannah Capellan MD [address] [place], [place] [id number] PCP - General Internal Medicine 11/10/16 Win Alfred MD [address] [place] [address] Primary Staff Physician Cardiology 11/07/21 End User Support Specialist Relationship Specialty Start Date End Date Susannah Capellan MD [address] [place], [place] [id number] PCP - General Internal Medicine 11/10/16 Win Alfred MD [address] [place] [address] Primary Staff Physician Cardiology 11/07/21 End User Support Specialist Relationship Specialty Start Date End Date Susannah Capellan MD [address] [place], [place] [address] PCP - General Internal Medicine 11/10/16 Win Alfred MD [address] [place] [address] Primary Staff Physician Cardiology 11/07/21 End User Support Specialist Relationship Specialty Start Date End Date Susannah Capellan MD [address] [place], [place] [address]322 PCP - General Internal Medicine 11/10/16 Win Alfred MD [address] [place] [address] Primary Staff Physician Cardiology 11/07/21 End User Support Specialist Relationship Specialty Start Date End Date Susannah Capellan MD [address] [place], [place] [id number] PCP - General Internal Medicine 11/10/16 Win Alfred MD [address] [place] [address] Primary Staff Physician Cardiology 11/07/21 End User Support Specialist Relationship Specialty Start Date End Date Susannah Capellan MD [address] [place] [address] PCP - General Internal Medicine 11/10/16 Win Alfred MD [address] [place] [address] Primary Staff Physician Cardiology 11/07/21 End User Support Specialist Relationship Specialty Start Date End Date Susannah Capellan MD PCP - General Internal Medicine 11/10/16 Win Alfred MD [address] [place] [address] Primary Staff Physician Cardiology 11/07/21 End User Support Specialist Relationship Specialty Start Date End Date Susannah Capellan MD PCP - General Internal Medicine 11/10/16 Win Alfred MD [address] [place] [address] Primary Staff Physician Cardiology 11/07/21 End User Support Specialist Relationship Specialty Start Date End Date Susannah Capellan MD PCP - General Internal Medicine 11/10/16 Win Alfred MD [address] [place] [address] Primary Staff Physician Cardiology 11/07/21 End User Support Specialist Relationship Specialty Start Date End Date Susannah Capellan MD PCP - General Internal Medicine 11/10/16 Win Alfred MD [address] [place] [address] Primary Staff Physician Cardiology 11/07/21 End User Support Specialist Relationship Specialty Start Date End Date Susannah Capellna MD PCP - General Internal Medicine 11/10/16 Win Alfred MD [address] [place] [address] Primary Staff Physician Cardiology 11/07/21 End User Support Specialist Relationship Specialty Start Date End Date Susannah Capellan MD PCP - General Internal Medicine 11/10/16 Win Alfred MD [address] [place] [address] Primary Staff Physician Cardiology 11/07/21 End User Support Specialist Relationship Specialty Start Date End Date Susannah Capellan MD PCP - General Internal Medicine 11/10/16 Win Alfred MD [address] [place] [address] Primary Staff Physician Cardiology 11/07/21 End User Support Specialist Relationship Specialty Start Date End Date Susannah Capellan MD PCP - General Internal Medicine 11/10/16 Win Alfred MD [address] [place] [address] Primary Staff Physician Cardiology 11/07/21 End User Support Specialist Relationship Specialty Start Date End Date Susannah Capellan MD PCP - General Internal Medicine 11/10/16 Win Alfred MD [address] [place] [address] Primary Staff Physician Cardiology 11/07/21 End User Support Specialist Relationship Specialty Start Date End Date Susannah Capellan MD PCP - General Internal Medicine 11/10/16 Win Alfred MD [address] [place] [address] Primary Staff Physician Cardiology 11/07/21 End User Support Specialist Relationship Specialty Start Date End Date Susannah Capellan MD PCP - General Internal Medicine 11/10/16 Win Alfred MD [address] [place] [address] Primary Staff Physician Cardiology 11/07/21 End User Support Specialist Relationship Specialty Start Date End Date Susannah Capellan MD PCP - General Internal Medicine 11/10/16 Win Alfred MD [address] [place] [address] Primary Staff Physician Cardiology 11/07/21 End User Support Specialist Relationship Specialty Start Date End Date Susannah Capellan MD PCP - General Internal Medicine 11/10/16 Win Alfred MD [address] [place] [address] Primary Staff Physician Cardiology 11/07/21 End User Support Specialist Relationship Specialty Start Date End Date Susannah Capellan MD PCP - General Internal Medicine 11/10/16 Win Alfred MD [address] [place] [address] Primary Staff Physician Cardiology 11/07/21 End User Support Specialist Relationship Specialty Start Date End Date Susannah Capellan MD PCP - General Internal Medicine 11/10/16 Win Alfred MD [address] [place], [place] [address] Primary Staff Physician Cardiology 11/07/21 End User Support Specialist Relationship Specialty Start Date End Date Susannah Capellan MD PCP - General Internal Medicine 11/10/16 Win Alfred MD [address] [place], [place] [id number] Primary Staff Physician Cardiology 11/07/21 End User Support Specialist Relationship Specialty Start Date End Date Susannah Capellan MD PCP - General Internal Medicine 11/10/16 Win Alfred MD [address] [place] [address] Primary Staff Physician Cardiology 11/07/21 Team Status: Inactive Member Role Status Dates Dr. Susannah Capellan MD Primary Care Provider Active Dr. Alberto Bernal MD Emergency Provider Active End User Support Specialist Relationship Specialty Start Date End Date Susannah Capellan MD PCP - General Internal Medicine 11/10/16 Win Alfred MD [address] [place] [address] Primary Staff Physician Cardiology 11/07/21 End User Support Specialist Relationship Specialty Start Date End Date Susannah Capellan MD PCP - General Internal Medicine 11/10/16 Win Alfred MD [address] [place] [address] Primary Staff Physician Cardiology 11/07/21 End User Support Specialist Relationship Specialty Start Date End Date Susannah Capellan MD PCP - General Internal Medicine 11/10/16 Win Alfred MD [address] [place] [address] Primary Staff Physician Cardiology 11/07/21 End User Support Specialist Relationship Specialty Start Date End Date Susannah Capellan MD PCP - General Internal Medicine 11/10/16 Win Alfred MD [address] [place] [address] Primary Staff Physician Cardiology 11/07/21 End User Support Specialist Relationship Specialty Start Date End Date Susannah Capellan MD PCP - General Internal Medicine 11/10/16 Win Alfred MD [address] [place] [address] Primary Staff Physician Cardiology 11/07/21 End User Support Specialist Relationship Specialty Start Date End Date Susannah Capellan MD PCP - General Internal Medicine 11/10/16 Win Alfred MD [address] [place] [address] Primary Staff Physician Cardiology 11/07/21 End User Support Specialist Relationship Specialty Start Date End Date Susannah Capellan MD PCP - General Internal Medicine 11/10/16 Win Alfred MD [address] [place] [address] Primary Staff Physician Cardiology 11/07/21 End User Support Specialist Relationship Specialty Start Date End Date Susannah Capellan MD PCP - General Internal Medicine 11/10/16 Win Alfred MD [address] [place] [address] Primary Staff Physician Cardiology 11/07/21 End User Support Specialist Relationship Specialty Start Date End Date Susannah Capellan MD PCP - General Internal Medicine 11/10/16 Win Alfred MD [address] [place], [place] [address] Primary Staff Physician Cardiology 11/07/21 End User Support Specialist Relationship Specialty Start Date End Date Susannah Capellan MD PCP - General Internal Medicine 11/10/16 Win Alfred MD [address] [place] [address] Primary Staff Physician Cardiology 11/07/21 End User Support Specialist Relationship Specialty Start Date End Date Susannah Capellan MD PCP - General Internal Medicine 11/10/16 Win Alfred MD [address] [place] [address] Primary Staff Physician Cardiology 11/07/21 End User Support Specialist Relationship Specialty Start Date End Date Susannah Capellan MD PCP - General Internal Medicine 11/10/16 Win Alfred MD [address] [place], [place] [address] Primary Staff Physician Cardiology 11/07/21 End User Support Specialist Relationship Specialty Start Date End Date Susannah Capellan MD PCP - General Internal Medicine 11/10/16 Win Alfred MD [address] [place] [address] Primary Staff Physician Cardiology 11/07/21 End User Support Specialist Relationship Specialty Start Date End Date Susannah Capellan MD PCP - General Internal Medicine 11/10/16 Win Alfred MD [address] [place] [address] Primary Staff Physician Cardiology 11/07/21 End User Support Specialist Relationship Specialty Start Date End Date Susannah Capellan MD PCP - General Internal Medicine 11/10/16 Win Alfred MD [address] [place] [address] Primary Staff Physician Cardiology 11/07/21 End User Support Specialist Relationship Specialty Start Date End Date Susannah Capellan MD PCP - General Internal Medicine 11/10/16 Win Alfred MD [address] [place] [address] Primary Staff Physician Cardiology 11/07/21 End User Support Specialist Relationship Specialty Start Date End Date Susannah Capellan MD PCP - General Internal Medicine 11/10/16 Win Alfred MD [address] [place], [place] [address] Primary Staff Physician Cardiology 11/07/21 End User Support Specialist Relationship Specialty Start Date End Date Susannah Capellan MD PCP - General Internal Medicine 11/10/16 Win Alfred MD [address] [place] [address] Primary Staff Physician Cardiology 11/07/21 End User Support Specialist Relationship Specialty Start Date End Date Susannah Capellan MD PCP - General Internal Medicine 11/10/16 End User Support Specialist Relationship Specialty Start Date End Date Susannah Capellan MD PCP - General Internal Medicine 11/10/16 End User Support Specialist Relationship Specialty Start Date End Date Susannah Capellan MD PCP - General Internal Medicine 11/10/16 End User Support Specialist Relationship Specialty Start Date End Date Susannah Capellan MD PCP - General Internal Medicine 11/10/16 Win Alfred MD [address] [place] [address] Primary Staff Physician Cardiology 11/07/21 End User Support Specialist Relationship Specialty Start Date End Date Susannah Capellan MD PCP - General Internal Medicine 11/10/16 Win Alfred MD [address] [place] [address] Primary Staff Physician Cardiology 11/07/21 End User Support Specialist Relationship Specialty Start Date End Date Susannah Capellan MD PCP - General Internal Medicine 11/10/16 Win Alfred MD [address] [place] [address] Primary Staff Physician Cardiology 11/07/21 End User Support Specialist Relationship Specialty Start Date End Date Susannah Capellan MD PCP - General Internal Medicine 11/10/16 Win Alfred MD [address] [place] [address] Primary Staff Physician Cardiology 11/07/21 End User Support Specialist Relationship Specialty Start Date End Date Susannah Capellan MD PCP - General Internal Medicine 11/10/16 Win Alfred MD [address] [place] [address] Primary Staff Physician Cardiology 11/07/21 End User Support Specialist Relationship Specialty Start Date End Date Susannah Capellan MD PCP - General Internal Medicine 11/10/16 Win Alfred MD [address] [place] [address] Primary Staff Physician Cardiology 11/07/21 Eve Daniel PA-C [address] [place] [address] Drug Safety Coordinator Internal Medicine 09/25/24 End User Support Specialist Relationship Specialty Start Date End Date Susannah Capellan MD PCP - General Internal Medicine 11/10/16 Win Alfred MD [address] [place] [address] Primary Staff Physician Cardiology 11/07/21 Eve Daniel PA-C [address] [place] [address] Drug Safety Coordinator Internal Medicine 09/25/24 End User Support Specialist Relationship Specialty Start Date End Date Susannah Capellan MD PCP - General Internal Medicine 11/10/16 Win Alfred MD [address] [place] [id number] Primary Staff Physician Cardiology 11/07/21 Eve Daniel PA-C [address] [place] [address] Drug Safety Coordinator Internal Medicine 09/25/24 End User Support Specialist Relationship Specialty Start Date End Date Susannah Capellan MD PCP - General Internal Medicine 11/10/16 Win Alfred MD [address] [place] [id number] Primary Staff Physician Cardiology 11/07/21 Eve Daniel PA-C [address] [place] [address] Drug Safety Coordinator Internal Medicine 09/25/24 End User Support Specialist Relationship Specialty Start Date End Date Susannah Capellan MD PCP - General Internal Medicine 11/10/16 Win Alfred MD [address] [place] [address] Primary Staff Physician Cardiology 11/07/21 Eve Daniel PA-C [address] [place] [address] Drug Safety Coordinator Internal Medicine 09/25/24 End User Support Specialist Relationship Specialty Start Date End Date Susannah Capellan MD PCP - General Internal Medicine 11/10/16 Win Alfred MD [address] [place] [address] Primary Staff Physician Cardiology 11/07/21 Eve Daniel PA-C [address] [place] [address] Drug Safety Coordinator Internal Medicine 09/25/24 End User Support Specialist Relationship Specialty Start Date End Date Susannah Capellan MD PCP - General Internal Medicine 11/10/16 Win Alfred MD [address] [place] [address] Primary Staff Physician Cardiology 11/07/21 Eve Daniel PA-C [address] [place] [address] Drug Safety Coordinator Internal Medicine 09/25/24 End User Support Specialist Relationship Specialty Start Date End Date Susannah Capellan MD PCP - General Internal Medicine 11/10/16 Win Alfred MD [address] [place] [address] Primary Staff Physician Cardiology 11/07/21 Eve Daniel PA-C [facility] [place] [address] Drug Safety Coordinator Internal Medicine 09/25/24 End User Support Specialist Relationship Specialty Start Date End Date Susannah Capellan MD PCP - General Internal Medicine 11/10/16 Win Alfred MD [address] [place] [address] Primary Staff Physician Cardiology 11/07/21 Eve Daniel PA-C [address] [place] [address] Drug Safety Coordinator Internal Medicine 09/25/24 End User Support Specialist Relationship Specialty Start Date End Date Susannah Capellan MD PCP - General Internal Medicine 11/10/16 Win Alfred MD [address] [place] [id number] Primary Staff Physician Cardiology 11/07/21 Eve Daniel PA-C [address] [place] [address] Drug Safety Coordinator Internal Medicine 09/25/24 End User Support Specialist Relationship Specialty Start Date End Date Susannah Capellan MD PCP - General Internal Medicine 11/10/16 Win Alfred MD [address] [place] [id number] Primary Staff Physician Cardiology 11/07/21 Eve Daniel PA-C [address] [place] [address] Drug Safety Coordinator Internal Medicine 09/25/24 End User Support Specialist Relationship Specialty Start Date End Date Susannah Capellan MD PCP - General Internal Medicine 11/10/16 Win Alfred MD [address] [place] [address] Primary Staff Physician Cardiology 11/07/21 Eve Daniel PA-C [facility] [place] [address] Drug Safety Coordinator Internal Medicine 09/25/24 End User Support Specialist Relationship Specialty Start Date End Date Susannah Capellan MD PCP - General Internal Medicine 11/10/16 Win Alfred MD [address] [place] [address] Primary Staff Physician Cardiology 11/07/21 Eve Daniel PA-C [address] [place] [address] Drug Safety Coordinator Internal Medicine 09/25/24 End User Support Specialist Relationship Specialty Start Date End Date Susannah Capelaln MD PCP - General Internal Medicine 11/10/16 Win Alfred MD [address] [place] [address] Primary Staff Physician Cardiology 11/07/21 Eve Daniel PA-C [address] [place] [address] Drug Safety Coordinator Internal Medicine 09/25/24 End User Support Specialist Relationship Specialty Start Date End Date Susannah Capellan MD PCP - General Internal Medicine 11/10/16 Win Alfred MD [address] [place] [address] Primary Staff Physician Cardiology 11/07/21 Eve Daniel PA-C [address] [place] [id number] Drug Safety Coordinator Internal Medicine 09/25/24 End User Support Specialist Relationship Specialty Start Date End Date Susannah Capellan MD PCP - General Internal Medicine 11/10/16 Win Alfred MD [address] [place] [address] Primary Staff Physician Cardiology 11/07/21 Eve Daniel PA-C [address] [place] [address] Drug Safety Coordinator Internal Medicine 09/25/24 End User Support Specialist Relationship Specialty Start Date End Date Susannah Capellan MD PCP - General Internal Medicine 11/10/16 Win Alfred MD [address] [place] [address] Primary Staff Physician Cardiology 11/07/21 Eve Daniel PA-C [address] [place] [address] Drug Safety Coordinator Internal Medicine 09/25/24 End User Support Specialist Relationship Specialty Start Date End Date Susannah Capellan MD PCP - General Internal Medicine 11/10/16 Win Alfred MD [address] [place] [address] Primary Staff Physician Cardiology 11/07/21 Eve Daniel PA-C [address] [place] [address] Drug Safety Coordinator Internal Medicine 09/25/24 Team Status: Active Member Role/Relationship Status Dates Dr. Susannah Capellan MD Primary Care Provider Active Team Status: Inactive Member Role/Relationship Status Dates Dr. Susannah Capellan MD Primary Care Provider Active Start: April 09, 2025 End: April 11, 2025 Serge Mcmullen MD Emergency Provider Active Star t: April 09, 2025 End: April 11, 2025 Dr. Bertha Godoy DO Admit Provider Active Start: April 09, 2025 End: April 11, 2025 Dr. Bertha Godoy DO Other Provider Active Start: April 09, 2025 End: April 11, 2025 Dr. Vasile Reyes MD Other Provider Active Start : April 09, 2025 End: April 11, 2025 Dr. Adilson Melchro DO Attending Provider Active Start: April 09, 2025 End: April 11, 2025 Team Status: Active Member Role/Relationship Status Dates Dr. Susannah Capellan MD Primary Care Provider Active Start: April 10, 2025 Dr. Vasile Reyes MD Attending Provider Active S tart: April 10, 2025 Team Status: Active Member Role/Relationship Status Dates Dr. Susannah Capellan MD Primary Care Provider Active Start: April 10, 2025 Dr. Richard Angelo MD Attending Provider Active S tart: April 10, 2025 Dr. Bertha Godoy DO Referring Provider Active Start: April 10, 2025 Team Status: Active Member Role/Relationship Status Dates Dr. Susannah Capellan MD Primary Care Provider Active Start: April 10, 2025 Serge Mcmullen MD Emergency Provider Active Star t: April 10, 2025 Dr. Bertha Godoy DO Admit Provider Active Start: April 10, 2025 Dr. Bertha Godoy DO Other Provider Active Start: April 10, 2025 Dr. Vasile Reyes MD Other Provider Active Start : April 10, 2025 Dr. Adilson Melchor DO Attending Provider Active Start: April 10, 2025 Dr. Adilson Melchor DO Other Provider Active Start: April 10, 2025 Team Status: Active Member Role/Relationship Status Dates Dr. Susannah Capellan MD Primary Care Provider Active Start: April 11, 2025 Serge Mcmullen MD Emergency Provider Active Star t: April 11, 2025 Dr. Bertha Godoy DO Admit Provider Active Start: April 11, 2025 Dr. Bertha Godoy DO Other Provider Active Start: April 11, 2025 Dr. Vasile Reyes MD Other Provider Active Start : April 11, 2025 Dr. Adilson Melchor DO Attending Provider Active Start: April 11, 2025 Dr. Adilson Melchor DO Other Provider Active Start: April 11, 2025 Team Status: Active Member Role/Relationship Status Dates Dr. Susannah Capellan MD Primary Care Provider Active Start: April 27, 2025 Dr. Keith Cronin MD Emergency Provider Active Sta rt: April 27, 2025 Dr. Adilson Melchor DO Admit Provider Active Start: April 27, 2025 Dr. Adilson Melchor DO Attending Provider Active Start: April 27, 2025 Team Status: Inactive Member Role/Relationship Status Dates Dr. Susannah Capellan MD Primary Care Provider Active Start: April 27, 2025 End: April 29, 2025 Dr. Keith Cronin MD Emergency Provider Active Sta rt: April 27, 2025 End: April 29, 2025 Dr. Adilson Melchor DO Admit Provider Active Start: April 27, 2025 End: April 29, 2025 Dr. Adilson Melchor DO Other Provider Active Start: April 27, 2025 End: April 29, 2025 Dr. Ariella Breaux MD Attending Provider Active Start: April 27, 2025 End: April 29, 2025 Dr. Emmanuelle Lorenzana MD Other Provider Active Start : April 27, 2025 End: April 29, 2025 Team Status: Active Member Role/Relationship Status Dates Dr. Susannah Capellan MD Primary Care Provider Active Start: April 28, 2025 Dr. Keith Cronin MD Emergency Provider Active Sta rt: April 28, 2025 Dr. Adilson Melchor DO Admit Provider Active Start: April 28, 2025 Dr. Adilson Melchor DO Other Provider Active Start: April 28, 2025 Dr. Ariella Breaux MD Attending Provider Active Start: April 28, 2025 Dr. Ariella Breaux MD Other Provider Active St art: April 28, 2025 End User Support Specialist Relationship Specialty Start Date End Date Susannah Capellan MD PCP - General Internal Medicine 11/10/16 Win Alfred MD [address] [place] [address] Primary Staff Physician Cardiology 11/07/21 Eve Daniel PA-C [address] [place] [address] Drug Safety Coordinator Internal Medicine 09/25/24 End User Support Specialist Relationship Specialty Start Date End Date Susannah Capellan MD PCP - General Internal Medicine 11/10/16 Win Alfred MD [address] [place] [address] Primary Staff Physician Cardiology 11/07/21 Eve Daniel PA-C [address] [place] [address] Drug Safety Coordinator Internal Medicine 09/25/24 End User Support Specialist Relationship Specialty Start Date End Date Susannah Capellan MD PCP - General Internal Medicine 11/10/16 Win Alfred MD [address] [place] [address] Primary Staff Physician Cardiology 11/07/21 Eve Daniel PA-C [address] [place] [address] Drug Safety Coordinator Internal Medicine 09/25/24 End User Support Specialist Relationship Specialty Start Date End Date Susannah Capellan MD PCP - General Internal Medicine 11/10/16 Win Alfred MD [address] [place] [address] Primary Staff Physician Cardiology 11/07/21 Eve Daniel PA-C [address] [place] [address] Drug Safety Coordinator Internal Medicine 09/25/24 End User Support Specialist Relationship Specialty Start Date End Date Susannah Capellan MD PCP - General Internal Medicine 11/10/16 Win Alfred MD [address] [place] [id number] Primary Staff Physician Cardiology 11/07/21 Eve Daniel PA-C [address] [place] [address] Drug Safety Coordinator Internal Medicine 09/25/24 End User Support Specialist Relationship Specialty Start Date End Date Susannah Capellan MD PCP - General Internal Medicine 11/10/16 Win Alfred MD [address] [place] [address] Primary Staff Physician Cardiology 11/07/21 Eve Daniel PA-C [facility] [place] [address] Drug Safety Coordinator Internal Medicine 09/25/24 End User Support Specialist Relationship Specialty Start Date End Date Susannah Capellan MD PCP - General Internal Medicine 11/10/16 Win Alfred MD [address] [place] [id number] Primary Staff Physician Cardiology 11/07/21 Eve Daniel PA-C [address] [place] [address] Drug Safety Coordinator Internal Medicine 09/25/24 End User Support Specialist Relationship Specialty Start Date End Date Susannah Capellan MD PCP - General Internal Medicine 11/10/16 Win Alfred MD [address] [place] [address] Primary Staff Physician Cardiology 11/07/21 Eve Daniel PA-C [address] [place] [address] Drug Safety Coordinator Internal Medicine 09/25/24 End User Support Specialist Relationship Specialty Start Date End Date Susannah Capellan MD PCP - General Internal Medicine 11/10/16 Win Alfred MD [address] [place] [id number] Primary Staff Physician Cardiology 11/07/21 Eve Daniel PA-C [address] [place] [address] Drug Safety Coordinator Internal Medicine 09/25/24 End User Support Specialist Relationship Specialty Start Date End Date Susannah Capellan MD PCP - General Internal Medicine 11/10/16 Win Alfred MD [address] [place], [place] [id number] Primary Staff Physician Cardiology 11/07/21 Eve Daniel PA-C [address] [place] [address] Drug Safety Coordinator Internal Medicine 09/25/24 End User Support Specialist Relationship Specialty Start Date End Date Susannah Capellan MD PCP - General Internal Medicine 11/10/16 Win Alfred MD [address] [place] [address] Primary Staff Physician Cardiology 11/07/21 Eve Daniel PA-C [address] [place] [address] Drug Safety Coordinator Internal Medicine 09/25/24 End User Support Specialist Relationship Specialty Start Date End Date Susannah Capellan MD PCP - General Internal Medicine 11/10/16 Win Alfred MD [address] [place] [place] [address] Primary Staff Physician Cardiology 11/07/21 Eve Daniel PA-C [address] [place] [address] Drug Safety Coordinator Internal Medicine 09/25/24 End User Support Specialist Relationship Specialty Start Date End Date Susannah Capellan MD PCP - General Internal Medicine 11/10/16 Win Alfred MD [address] [place] [address] Primary Staff Physician Cardiology 11/07/21 Eve Daniel PA-C [address] [place] [address] Drug Safety Coordinator Internal Medicine 09/25/24 End User Support Specialist Relationship Specialty Start Date End Date Susannah Capellan MD PCP - General Internal Medicine 11/10/16 Win Alfred MD [address] [place] [address] Primary Staff Physician Cardiology 11/07/21 Eve Daniel PA-C [address] [place] [address] Drug Safety Coordinator Internal Medicine 09/25/24 End User Support Specialist Relationship Specialty Start Date End Date Susannah Capellan MD PCP - General Internal Medicine 11/10/16 Win Alfred MD [address] [place] [address] Primary Staff Physician Cardiology 11/07/21 Eve Daniel PA-C [facility] [place] [address] Drug Safety Coordinator Internal Medicine 09/25/24 Team Status: Active Member Role/Relationship Status Dates Dr. Susannah Capellan MD Primary care physician Active Team Status: Inactive Member Role/Relationship Status Dates Dr. Susannah Capellan MD Primary care physician Active Start: April 09, 2025 End: April 11, 2025 Serge Mcmullen MD Emergency Department Physician Active Start: April 09, 2025 End: April 11, 2025 Dr. Bertha Godoy DO Admitting physician Active Start: April 09, 2025 End: April 11, 2025 Dr. Bertha Godoy DO Nurse Practitioner Active Start: April 09, 2025 End: April 11, 2025 Dr. Vasile Reyes MD Nurse Practitioner Active S tart: April 09, 2025 End: April 11, 2025 Dr. Adilson Melchor DO Attending physician Active Start: April 09 End: April 11, 2025 Team Status: Active Member Role/Relationship Status Dates Dr. Susannah Capellan MD Primary care physician Active Start: April 10, 2025 Dr. Vasile Reyes MD Attending physician Active Start: April 10, 2025 Team Status: Active Member Role/Relationship Status Dates Dr. Susannah Capellan MD Primary care physician Active Start: April 10, 2025 Dr. Richard Angelo MD Attending physician Active Start: April 10, 2025 Dr. Bertha Godoy DO Referring Provider Active Start: April 10, 2025 Team Status: Active Member Role/Relationship Status Dates Dr. Susannah Capellan MD Primary care physician Active Start: April 10, 2025 Serge Mcmullen MD Emergency Department Physician Active Start: April 10, 2025 Dr. Bertha Godoy DO Admitting physician Active Start: April 10, 2025 Dr. Bertha Godoy DO Nurse Practitioner Active Start: April 10, 2025 Dr. Vasile Reyes MD Nurse Practitioner Active S tart: April 10, 2025 Dr. Adilson Melchor DO Attending physician Active Start: April 10 Dr. Adlison Melchor DO Nurse Practitioner Active Start: April 10 Team Status: Active Member Role/Relationship Status Dates Dr. Susannah Capellan MD Primary care physician Active Start: April 11, 2025 Serge Mcmullen MD Emergency Department Physician Active Start: April 11, 2025 Dr. Bertha Godoy DO Admitting physician Active Start: April 11, 2025 Dr. Bertha Godoy DO Nurse Practitioner Active Start: April 11, 2025 Dr. Vasile Reyes MD Nurse Practitioner Active S tart: April 11, 2025 Dr. Adilson Melchor DO Attending physician Active Start: April [address] Dr. Adilson Melchor DO Nurse Practitioner Active Start: April 11 Team Status: Inactive Member Role/Relationship Status Dates Dr. Susannah Capellan MD Primary care physician Active Start: April 27, 2025 End: April 29, 2025 Dr. Keith Cronin MD Emergency Department Physician Active Start: April 27, 2025 End: April 29, 2025 Dr. Adilson Melchor DO Admitting physician Active Start: April 27 End: April 29, 2025 Dr. Adilson Melchor DO Nurse Practitioner Active Start: April 27 End: April 29, 2025 Dr. Ariella Breaux MD Attending physician Active Start: April 27, 2025 End: April 29, 2025 Dr. Emmanuelle Lorenzana MD Nurse Practitioner Active S tart: April 27, 2025 End: April 29, 2025 Team Status: Active Member Role/Relationship Status Dates Dr. Susannah Capellan MD Primary care physician Active Start: April 28, 2025 Dr. Keith Cronin MD Emergency Department Physician Active Start: April 28, 2025 Dr. Adilson Melchor DO Admitting physician Active Start: April 28 Dr. Adilson Melchor DO Nurse Practitioner Active Start: April 28 Dr. Ariella Breaux MD Attending physician Active Start: April 28, 2025 Dr. Ariella Breaux MD Nurse Practitioner Active Start: April 28, 2025 Team Status: Active Member Role/Relationship Status Dates Dr. Susannah Capellan MD Primary care physician Active Start: April 29, 2025 Dr. Keith Cronin MD Emergency Department Physician Active Start: April 29, 2025 Dr. Adilson Melchor DO Admitting physician Active Start: April 29 Dr. Adilson Melchor DO Nurse Practitioner Active Start: April 29 Dr. Ariella Breaux MD Attending physician Active Start: April 29, 2025 Dr. Ariella Breaux MD Nurse Practitioner Active Start: April 29, 2025 Dr. Emmanuelle Lorenzana MD Nurse Practitioner Active S tart: April 29, 2025 Team Status: Active Member Role/Relationship Status Dates Dr. Susannah Capellan MD Primary care physician Active Start: July 11, 2025 ROGELIO KAN Attending physician Active Sta rt: July 11, 2025 ROGELIO KAN Referring Provider Active Star t: July 11, 2025 Team Status: Inactive Member Role/Relationship Status Dates Dr. Susannah Capellan MD Primary care physician Active Start: July 17, 2025 End: July 17, 2025 ROGELIO KAN Attending physician Active Sta rt: July 17, 2025 End: July 17, 2025 ROGELIO KAN Referring Provider Active Star t: July 17, 2025 End: July 17, 2025 Team Status: Active Member Role/Relationship Status Dates Dr. Susannah Capellan MD Primary care physician Active Start: July 18, 2025 ROGELIO KAN Attending physician Active Sta rt: July 18, 2025 ROGELIO KAN Referring Provider Active Star t: July 18, 2025 Goals (unrecognized section and content) Goals [...] BE BASED ON THE PRIMARY CLINICAL RECORDS. [employer] provides no warranty or guarantee of the accuracy or completeness of information in this document.
--- NOTE | 2025-08-26 11:05 | RAD_ITS ---
PROCEDURE: HIP, UNI W/ PELVIS 2-3 VIEWS 08/26/2025 REASON FOR EXAM: Pain since May, increased to this week. TECHNIQUE: Procedure Code: [facility] Modality: DX Procedure: HIP, UNI W/ PELVIS 2-3 VIEWS Laterality: Left COMPARISON: None. FINDINGS: BONES: No definite fracture seen. No focal osseous lesions. JOINTS: No dislocation. Moderately advanced arthritic changes of the left hip characterized by marked joint space narrowing and subchondral sclerosis. The right hip shows mild degenerative narrowing. A bandlike sclerotic area is noted in the subcapital region of the left femoral neck without a distinct fracture line identified. SOFT TISSUES: Subtle asymmetric soft tissue prominence is seen about the left hip. RAD/HIP, UNI W/ Pelvis 2-3 Views IMPRESSION: 1. 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 No definite fracture identified. If clinically indicated, a follow-up CT or MRI is suggested to fur ther evaluate. 2. Moderately advanced left hip osteoarthrosis. Reading Location: [id number]
[2025-08-26 13:32] VITALS: BP 171/81; PULSE 81; RESP 14; TEMP 36.1; O2SAT 98
== END 2025-08-26 13:33 | disposition home or self-care (01) ==
PROVIDERS: Emergency Provider Emergency Medicine; PCP Internal Medicine; Visit Provider Emergency Medicine
DX: M16.12 Unilateral primary osteoarthritis, left hip (principal); J44.9 Chronic obstructive pulmonary disease, unspecified; N18.9 Chronic kidney disease, unspecified; Z86.718 Personal history of other venous thrombosis and embolism; Z87.891 Personal history of nicotine dependence
CPT/HCPCS: 96372; 73502; 99282